=== PATIENT | female | born 1945 | race Caucasian/White ===

== ENCOUNTER → 2020-08-31 14:06 | Outpatient (CLI) | payer MEDICARE, SELFPAY ==
--- NOTE | ~2020-08-31 | XR_ITS ---
XR chest 2V DATE: 08/31/2020 14:34 INDICATION: History of breast cancer TECHNIQUE: 2 views COMPARISON: 07/08/2019 2 view chest FINDINGS: Normal heart size. There is a large hiatal hernia. No hilar or mediastinal enlargement. No pulmonary infiltrate or consolidation, pleural effusion or pu lmonary vascular congestion or pneumothorax. Diffuse idiopathic skeletal hyperostosis of the thoracic spine. There is moderate osteopenia. IMPRESSION: No active cardiac pulmonary disease Large hiatal hernia is again noted, also present on 07/08/2019 Reviewed, dictated and finalized at location A.
== END ==
PROVIDERS: PCP Internal Medicine
DX: C54.1 Malignant neoplasm of endometrium (principal); K44.9 Diaphragmatic hernia without obstruction or gangrene
CPT/HCPCS: 71046

== ENCOUNTER 2022-03-20 09:33 | Outpatient (RCR) | payer MEDICARE, SELFPAY ==
--- NOTE | 2022-03-20 10:51 | PTOPEVAL ---
Thank you for referring Jolene Cedillo to [facility].? The patient is scheduled to be seen for therapy? ___3_x/week for 12 visits. Please review, sign, date and return this plan of care BRET. I agree with and certify that the following plan of care is medically necessary. Referring Physician Date Admitting Provider: Attending Provider: Bhavin Chun Referring Provider: *PT Outpatient Evaluation Start: 03/20/22 10:07 Freq: Status: Active Protocol: Document 03/20/22 10:07 BIB (Rec: 03/20/22 10:50 BIB [id number]) Therapy Assessment Status Assessment Status Assessment Status Evaluation Evaluation Information Problem Diagnosis bilateral knee pain Onset 11/26/21 Subjective Information Pt. reports that she developed Query Text:As Reported By Patient/ bilateral knee pain around Family the beginning of the year. She reports that pain has advanced into the thighs and right side of the low back. She reports that she can only stand for 10 minutes at the most before having to sit down . she reports that her activity level has decreased recently and spends most of the day sitting. She used to enjoy bicycle riding, but avoids it due to fear of falling. She states that her goal for therapy is to be able to return to going to the store and shopping without pain or having to sit frequently. Pain Assessment Timing of Pain Assessment Timing of Pain Assessment Pre-Treatment Pain Scale Pain Scale Used Numeric (1 - 10) Self Report Pain Assessment Bilateral Knee(s) Reported Pain Level 1 Pain Description Aching Pain Score Pain Score 1: Self Report Interventions Used Interventions Used By Clinicians Activity or ADL's,Exercise Lower Extremity Range of Motion General Lower Extremity Range of Motion Gross Lower Extremity Range of Motion -right knee AROM 2-123 degrees Comments -left knee AROM 5-114 degrees Lower Extremity Muscle Strength Testing General Lower Extremity Strength Gross Lower Extremity Strength -bilateral hip flexion 4/5 -bilateral knee extension 4/5 -bilateral knee flexion 4/5 -bilateral ankle dorsiflexion
--- NOTE | 2022-04-17 13:52 | PTOPEVAL ---
Thank you for referring Jolene Cedillo to [facility].? The patient is scheduled to be seen for therapy? 3 addtitional visits. Please review, sign, date and return this plan of care BRET. I agree with and certify that the following plan of care is medically necessary. Referring Physician Date Admitting Provider: Attending Provider: Bhavin Chun Referring Provider: NAOMIE Outpatient Evaluation Start: 03/20/22 10:07 Freq: Status: Active Protocol: Document 04/17/22 12:52 BIB (Rec: 04/17/22 13:52 BIB [id number]) Therapy Assessment Status Assessment Status Assessment Status Progress Pain Assessment Timing of Pain Assessment Timing of Pain Assessment Pre-Treatment Pain Scale Pain Scale Used Numeric (1 - 10) Self Report Pain Assessment Lower Back Reported Pain Level 3 Pain Description Aching Bilateral Knee(s) Reported Pain Level 0 Lowest Pain Intensity 0 Greatest Pain Intensity 1 Pain Aggravating Factors Weight Bearing/Standing Pain Score Pain Score 0,3: Self Report Interventions Used Interventions Used By Clinicians Activity or ADL's Cervical and Lumbar ROM Lumbar ROM Lumbar Flexion Active [place],Ankle Query Text:Hands to: Lumbar Extension (0-40) 10 Query Text:Active in Degrees Lumbar Lateral Flexion Right (0-40) 10 Query Text:Active in Degrees Lumbar Lateral Flexion Left (0-40) 10 Query Text:Active in Degrees Lower Extremity Muscle Strength Testing General Lower Extremity Strength Gross Lower Extremity Strength -bilateral hip flexion 5/5 -bilateral hip abduction 4/5 -bilateral knee flexion 5/5 -bilateral knee extension 5/5 -bilateral ankle dorsiflexion 4/5 Balance Assessment Tinetti Balance Assessment Sitting Balance Steady, safe Ability to Arise Able, uses arms to help Attempts to Arise Arises on 1st attempt Immediate Standing Balance Steady w/o support Standing Balance Steady, wide stance Nudged Response Steady Standing with Eyes Closed Steady Step Pattern Turning 360 Degrees Continuous steps Stability Turning 360 Degrees Steady Sitting Down Safe, steady Initiation of Gait No hesitancy Right Foot Step Length Does not pass stance ft. Right Foot Step Height Completely clears floor Left Foot Step Length Does not pass stance foot Left Foot Step Height Completely clears floor Step Symmetry Step length appears equal Step Continuity Steps appear contin
--- NOTE | 2022-04-27 15:30 | PTOPEVAL ---
Thank you for referring Jolene Cedillo to [facility].? The patient is scheduled to be seen for therapy? ____x/week for ___ weeks. Please review, sign, date and return this plan of care BRET. I agree with and certify that the following plan of care is medically necessary. Referring Physician Date Admitting Provider: Attending Provider: Bhavin Chun Referring Provider: *PT Outpatient Evaluation Start: 03/20/22 10:07 Freq: Status: Active Protocol: Document 04/27/22 11:00 Oksana (Rec: 04/27/22 12:10 [id number]) Therapy Assessment Status Assessment Status Assessment Status Discharge Evaluation Information Problem Diagnosis bilateral knee pain Onset 11/26/21 Subjective Information Pt reports that she continues Query Text:As Reported By Patient/ to have pain in her lower back Family when standing for long periods of time. She also states that she has been feeling tired all of the time, beginning a few years ago when she got covid-19. She does state that her weight remains pretty close to the same, and that she checks her weight once every six months at her primary care physician. She states that she no longer has knee pain. She states that she remains limited in the length of time that she can walk, but this is primarily due to general fatigue than fatigue or pain in her knees. She does have steps at home but uses the handrail to negotiate the stairs to feel safe. Pain Assessment Timing of Pain Assessment Timing of Pain Assessment Pre-Treatment Pain Scale Pain Scale Used Numeric (1 - 10) Self Report Pain Assessment Lower Back Reported Pain Level 0 Bilateral Knee(s) Reported Pain Level 0 Pain Score Pain Score 0,0: Self Report Interventions Used Interventions Used By Clinicians Activity or ADL's,Education, Exercise Cervical and Lumbar ROM Lumbar ROM Lumbar Flexion Active Ankle Query Text:Hands to: Lumbar Extension (0-40) 10 Query Text:Active in Degrees Lumbar Lateral Flexion Right (0-40) 20 Query Text:Active in Degrees
== END 2022-04-27 10:22 | disposition home or self-care (01) ==
LOC: CHSPT 09:33
DX: M17.9 Osteoarthritis of knee, unspecified (principal)
CPT/HCPCS: 97014; 97110; 97112; 97161; 97530; G0283

== ENCOUNTER 2023-02-08 08:31 | Emergency (ER) | payer MEDICARE, SELFPAY ==
--- NOTE | ~2023-02-08 | XR_ITS ---
EXAMINATION: XR chest 2V DATE: 02/08/2023 08:59 INDICATION: Cough. TECHNIQUE: Frontal and lateral views of the chest were obtained. COMPARISON: Chest 2 views 08/31/20 FINDINGS: There is no pneumonia, pleural effusion, or pneumothorax. The heart size is normal. There i s a large hiatal hernia. Surgical clips overlie the chest. IMPRESSION: 1. Large hiatal hernia. Reviewed, dictated and finalized at location A. IMPRESSION: 1. Large hiatal hernia.
[2023-02-08 08:36] VITALS: BP 156/65; PULSE 106; RESP 20; TEMP 37.1; O2SAT 95
--- NOTE | 2023-02-08 08:40 | ED.URI ---
HPI - URI/Sore Throat General Chief Complaint: Upper Respiratory Infection Stated Complaint: cough Source: patient and RN notes reviewed History of Present Illness HPI Narrative: 77-year-old female presents to urgent care with complaints of cough x2 days. Patient states her cough is worse at nighttime after laying down but states when she sits up she feels like things drain better. Patient denies any fevers, chills, chest pain, shortness of breath, vomiting, diarrhea, congestion, ear pain, or headache. Patient has not been taking anything for symptoms. Some parts of this dictation were generated by voice recognition software and may contain typographical and/or grammatical inaccuracies. Related Data Home Medications Medication Instructions Recorded Confirmed albuterol sulfate 90 mcg/actuation 90 mcg inhalation PRN 02/08/23 02/08/23 aerosol inhaler letrozole 2.5 mg tablet mg 02/08/23 methotrexate sodium 2.5 mg tablet mg 02/08/23 Allergies Allergy/AdvReac Type Severity Reaction Status Date / Time codeine Allergy Other Verified 02/08/23 08:48 Review of Systems Review of Systems: CONSTITUTIONAL: Denies fever, chills, or sweats. EYES: Denies visual changes, redness, or discharge. ENT: Denies otalgia and sore throat CARDIOVASCULAR: Denies chest pain, palpitations, or edema. RESPIRATORY: Cough GASTROINTESTINAL: Denies abdominal pain, nausea, vomiting, or diarrhea. GENITOURINARY: Denies dysuria or hematuria. SKIN: Denies rash or itching. MUSCULOSKELETAL: Denies back pain, joint pain, or myalgia. NEUROLOGIC: Denies headache, numbness, or weakness. PMFSH Comments At the time of my signature, I reviewed and agree with the nursing past medical, surgical, social, and family history. There is no relevant family history pertinent to the patient complaint. Exam Narrative: GENERAL: This is a well-nourished, well-developed patient, in no apparent distress. HEAD: normocephalic, atraumatic. EYES: PERRL. Sclera clear/white. Vision is grossly intact. EARS: External ears normal, auditory canals clear and without drainage, TMs normal without perforation. Hearing grossly intact. NOSE: External nose normal with no obvious nasal discharge, nares without redness, no rhinorrhea. THROAT: Mucous membranes moist, posterior pharynx clear. NECK: Neck supple, non-tender without lymphadenopathy, masses or thyromegaly. CARDIOVASCULAR: Regular rate and rhythm without murmurs, gallops, or rubs. RESPIRATORY: Clear to auscultation. Breath sounds equal bilaterally. No wheezes, rales, or rhonchi. GASTROINTESTINAL: Abdomen soft, non-tender, nondistended. Bowel sounds are active. No hepato-splenomegaly, or palpable masses. No guarding. SKIN: warm, intact with no suspicious lesions or rash, good texture and turgor. NEURO: awake, alert, and oriented to person, place and time. There were no obvious focal neurologic abnormalities. Course Course Level of Care: Express Care Visit Vital Signs Vital signs: Vital Signs Temperature 98.7 F 02/08/23 08:36 Pulse Rate 106 H 02/08/23 08:36 Respiratory Rate 20 02/08/23 08:36 Blood Pressure 156/65 H 02/08/23 08:36 Pulse Oximetry 95 02/08/23 08:36 Oxygen Delivery Room Air 02/08/23 08:36 Temperature 98.7 F 02/08/23 08:36 Pulse Rate 106 H 02/08/23 08:36 Respiratory Rate 20 02/08/23 08:36 Blood Pressure 156/65 H 02/08/23 08:36 Pulse Oximetry 95 02/08/23 08:36 Oxygen Delivery Room Air 02/08/23 08:36 reviewed. MDM - URI/Sore Throat MDM Narrative Medical decision making narrative: Use your albuterol inhaler as directed every 4-6 hours as needed for coughing. Get plenty of of fluids and rest. May use a humidifier in the bedroom. Increase vitamin-C. Go to the emergency department with any new or worsening symptoms. Follow-up with your primary care physician within the next week. Differential Diagnosis Differential diagnosis: Likely upper respiratory infection, bronchi
== END 2023-02-08 09:08 | disposition home or self-care (01) ==
PROVIDERS: Emergency Provider Nurse Practitioner Family
DX: J40 Bronchitis, not specified as acute or chronic (principal); M06.9 Rheumatoid arthritis, unspecified; Z85.3 Personal history of malignant neoplasm of breast
CPT/HCPCS: 71046; 99213; G0463

== ENCOUNTER 2023-05-14 10:41 | Emergency (ER) | payer MEDICARE, SELFPAY ==
[2023-05-14 10:49] VITALS: BP 143/72; PULSE 81; RESP 20; TEMP 37.1; O2SAT 100
--- NOTE | 2023-05-14 10:58 | ED.URI ---
HPI - URI/Sore Throat General Chief Complaint: Upper Respiratory Infection Stated Complaint: poss bronchitis History of Present Illness HPI Narrative: Patient presents with a dry nonproductive cough. Patient states the cough is worse at night when she lays down and is relieved with [place] cough drops. No shortness of breath no chest pain. Patient is not taking anything [id number] for her symptoms. Related Data Home Medications Medication Instructions Recorded Confirmed albuterol sulfate 90 mcg/actuation 90 mcg inhalation PRN 02/08/23 02/08/23 aerosol inhaler letrozole 2.5 mg tablet mg 02/08/23 methotrexate sodium 2.5 mg tablet mg 02/08/23 Allergies Allergy/AdvReac Type Severity Reaction Status Date / Time codeine Allergy Other Verified 02/08/23 08:48 Review of Systems Review of Systems: CONSTITUTIONAL: Denies chills, or sweats. Reports fever and generalized body aches EYES: Denies visual changes, redness, or discharge. ENT: Denies otalgia. Reports nasal congestion runny nose and sore throat CARDIOVASCULAR: Denies chest pain, palpitations, or edema. RESPIRATORY: Denies dyspnea. Reports occasional cough GASTROINTESTINAL: Denies abdominal pain, nausea, vomiting, or diarrhea. GENITOURINARY: Denies dysuria or hematuria. SKIN: Denies rash or itching. MUSCULOSKELETAL: Denies back pain, joint pain, or myalgia. Reports generalized body aches NEUROLOGIC: Denies headache, numbness, or weakness. PSYCHIATRIC: Denies anxiety or depression. PMFSH Comments At time of signature, agree with nursing past medical, surgical, social and family history. There is no relevant family history pertinent to the presenting complaint Exam Narrative: The patient is a well-developed, well-nourished in no acute distress. SKIN: Skin is warm and dry without erythema, swelling or exudate. There is good turgor. No tenting. HEAD: Atraumatic. Normocephalic. No temporal or scalp tenderness. EYES: Moist and bright. Sclera and conjunctivae normal. No discharge. PERRLA. Extraocular motions intact. Gross visual acuity intact. EARS: Pinna is normal shape and contour. Clear external auditory canals. TM pearly mcadams with good cone of light, no erythema or suppuration. Bilateral cerumen noted no gross hearing deficit. NOSE: pink, moist mucosa with good air movement. Clear rhinorrhea without nasal flaring. Septum midline. Mouth: moist mucous membranes. THROAT; mild erythema noted to posterior oropharynx with moderate postnasal drainage. Without exudate or ulceration.. Uvula midline. Normal movement of soft palate. NECK: Supple and nontender with full range of motion without discomfort. No meningeal signs. LUNGS: Equal and bilateral breath sounds without wheezes, rales or rhonchi. CHEST: The chest wall is without retractions or use of accessory muscles. HEART: Has a regular rate and rhythm without murmur, gallops, click or rub. ABDOMEN: Soft, nontender with positive active bowel sounds. No rebound tenderness. EXTREMITIES: Without cyanosis, clubbing or edema. Equal 2+ distal pulses and 2 second capillary refill noted. NEUROLOGIC: alert, active, . The patient moves all extremities with normal muscle strength. Normal muscle tone is noted. Normal coordination is noted. NO focal neurological findings noted. Course Course Level of Care: Express Care Visit Vital Signs Vital signs: Vital Signs Temperature 37.1 C 05/14/23 10:49 Pulse Rate 81 05/14/23 10:49 Respiratory Rate 20 05/14/23 10:49 Blood Pressure 143/72 H 05/14/23 10:49 Pulse Oximetry 100 05/14/23 10:49 Oxygen Delivery Room Air 05/14/23 10:49 Temperature 37.1 C 05/14/23 10:49 Pulse Rate 81 05/14/23 10:49 Respiratory Rate 20 05/14/23 10:49 Blood Pressure 143/72 H 05/14/23 10:49 Pulse Oximetry 100 05/14/23 10:49 Oxygen Delivery Room Air 05/14/23 10:49 Please BRET schedule a followup visit with your personal physician for further evaluation and
== END 2023-05-14 11:03 | disposition home or self-care (01) ==
PROVIDERS: Emergency Provider Nurse Practitioner Family
DX: J06.9 Acute upper respiratory infection, unspecified (principal); I10 Essential (primary) hypertension
CPT/HCPCS: 99213; G0463

== ENCOUNTER 2023-11-03 13:09 | Emergency (ER) | payer MEDICARE, SELFPAY ==
[2023-11-03 13:17] VITALS: BP 158/68; PULSE 93; RESP 16; TEMP 37.6; O2SAT 96
--- NOTE | 2023-11-03 13:25 | ED.GENADULT ---
HPI - General Adult General Chief complaint: Upper Respiratory Infection Stated complaint: Cough/Runny Nose Source: patient, RN notes reviewed and old records reviewed Mode of arrival: ambulatory Limitations: no limitations History of Present Illness HPI narrative: 77-year-old female presents to [facility] with complaints of cough and congestion that started yesterday. Patient states using inhaler and cough drops without relief. Patient denies chest pain, shortness of breath, fevers, sore throat, weakness, vomiting MD complaint: coughing congestion Onset (ago): day(s) (1) Related Data Home Medications Medication Instructions Recorded Confirmed albuterol sulfate 90 mcg/actuation 90 mcg inhalation PRN PRN 02/08/23 11/03/23 aerosol inhaler Shortness Of Breath Or Wheezing letrozole 2.5 mg tablet 2.5 mg PO DAILY 02/08/23 11/03/23 Allergies Allergy/AdvReac Type Severity Reaction Status Date / Time codeine Allergy Unknown Unknown Verified 11/03/23 13:24 Review of Systems Constitutional: Constitutional: Reports no additional constitutional complaints, Denies body ache(s), Denies chills, Denies fever(s) and Denies headache(s) Eyes: Eyes: Reports no additional eye complaints ENT: Reports nasal congestion and Reports nasal discharge Cardiovascular: Cardiovascular: Reports no additional cardiovascular complaints Respiratory: Respiratory: Reports as per HPI, Reports chest congestion, Reports cough, Denies pain with cough and Denies dyspnea Neurologic: Reports system reviewed and no additional complaints, except as documented PMFSH Comments At the time of my signature, I reviewed and agree with the nursing past medical, surgical, social, and family history. There is no relevant family history pertinent to the patient complaint. Exam Const: General: cooperative, healthy appearing, no acute distress and well nourished Nutritional Appearance: well nourished Orientation/consciousness: patient oriented x3 Limitations: no limitations HENMT: Head: normal to inspection and normocephalic Ears: external ears normal, TM's normal bilaterally, mastoids normal and Abnormal EAC present Face/Nose/Sinus: normal facial exam Face and sinus: normal facial exam Mouth: Yes Normal oral and palatal mucosa present, Yes oropharynx normal and Yes moist mucous membranes Throat: posterior oropharynx normal, tonsils normal, uvula midline and no uvular edema Eyes: General: appearance normal, both eyes and all related structures Sclera: sclerae normal Pupils: Equal, round and reactive pupils present Resp: Effort & Inspection: normal respiratory effort, able to speak in complete sentences, no audible wheezes, no cough, no respiratory distress and no retractions Auscultation: clear to auscultation bilaterally, no crackles, no rales, no rhonchi and wheezes scattered wheezes Cardio: Rate: regular rate Rhythm: regular rhythm Skin: General skin exam: normal color and no rashes or lesions noted Neuro: General: patient oriented x3 Cranial nerves: Yes Equal, round and reactive pupils present Psych: Appearance: grossly normal Course Course Emergency Course: Some parts of this dictation were generated by voice recognition software and may contain typographical and/or grammatical inaccuracies. Level of Care: Express Care Visit Vital Signs Vital signs: Vital Signs Temperature 99.6 F 11/03/23 13:17 Pulse Rate 93 11/03/23 13:17 Respiratory Rate 16 11/03/23 13:17 Blood Pressure 158/68 H 11/03/23 13:17 Pulse Oximetry 96 11/03/23 13:17 Oxygen Delivery Room Air 11/03/23 13:17 Temperature 99.6 F 11/03/23 13:17 Pulse Rate 93 11/03/23 13:17 Respiratory Rate 16 11/03/23 13:17 Blood Pressure 158/68 H 11/03/23 13:17 Pulse Oximetry 96 11/03/23 13:17 Oxygen Delivery Room Air 11/03/23 13:17 Reviewed Medical Decision Making MDM Narrative Medical decision making narrative: patient with complaints cou
== END 2023-11-03 13:50 | disposition home or self-care (01) ==
PROVIDERS: Emergency Provider Registered Nurse
DX: J06.9 Acute upper respiratory infection, unspecified (principal); Z20.822 Contact with and (suspected) exposure to COVID-19; I10 Essential (primary) hypertension; M06.9 Rheumatoid arthritis, unspecified; Z85.3 Personal history of malignant neoplasm of breast; Z90.12 Acquired absence of left breast and nipple
CPT/HCPCS: 87426; 99213; C9803; G0463

== ENCOUNTER 2023-12-19 10:52 | Outpatient (RCR) | payer MEDICARE, SELFPAY ==
--- NOTE | 2023-12-19 11:54 | OPREHPOC ---
Outpatient Therapy Plan of Care This is a Multidisciplinary Plan of Care that may contain components documented by all disciplines (PT, OT, and ST.) PT Problem 1 PT Problem #1 Knowledge Deficit PT Goal 1 Goal 1. independent and compliant with HEP Target Visit 4 PT Problem 2 PT Problem #2 Pain PT Goal 1 Goal 1. decrease pain at worst to 3/10 or less 2. oswestry to display 20% or less functional deficits Target Visit 9 PT Problem 3 PT Problem #3 Impaired Strength PT Goal 1 Goal 1. improve bilateral hip strength to 4-/5 or better overall 2. improve core strength to hold bridge for 1 minute without loss of posture 3. improve core strength to perform PPT with supine bilateral march without loss of pelvic posture Target Visit 9 PT Problem 4 PT Problem #4 Impaired Functional Mobil PT Goal 1 Goal 1. patient to report no falls since beginning PT 2. patient to improve posture of the shoulder, upper back, and LE's to be more erect and less slumped 3. patient to ambulate 6 minute walk test without rest and with step through mechanics with good foot clearance 4. patient to stand and do dishes and cleaning at home without increased pain/rest required. Target Visit 9
--- NOTE | 2023-12-19 11:54 | PTOPEVAL1 ---
Assessment and note entered by JT File, PT Evaluation Information Assessment Status Evaluation Diagnosis low back pain, lumbago Onset 12/12/23 Subjective Information patient reports she has L sided lower back pain. she reports no injury, and no increased lifting activities. she reports she went to the MD 2 weeks ago and got mm relaxors. she reports these have helped a bit. she reports she has had no xrays. she reports she has increased pain with standing to wash dishes. she reports sitting does not cause pain. she reports stairs are troublesome, but she tries to avoid steps as much as she can for other reasons. she reports she has not NTB down the L LE. Reported Pain Level Pain Score 1: Self Report Assessment PT Clinical Summary mrs. pfeiffer is a 77 yo woman who presents to skilled PT services for evaluation and treatment of lower back pain. upon examination this date, she was found to be tender to palpation at the L PSIS, displays weak hips and core, decreased lumbar rom, and poor posture. 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 she would benefit from continued skilled PT services to improve her objective/functional deficits and progress towards a return to her prior level functional activity performance and quality of life. Plan of Care Interventions Electrical Stimulation,Gait Training,Hot Pack/Cold Pack,Manual Therapy,Mechanical Traction,Neuro Re- education,Patient/Caregiver Educati,Therapeutic Activities,Therapeutic Exercise PT Services Indicated Yes Treatment Frequency and 3x weekly for 9 visits Duration These treatments will address the objective and functional deficits as defined above. The patient will be advanced safely and appropriately in order for the patient to progress towards his/her prior level of function. Additional exercises will be introduced and as well as a comprehensive home exercise program upon discharge, if needed, ?to ensure carryover of functional gains achieved in the clinic. This treatment plan has been reviewed and agreement upon by the patient.
--- NOTE | 2024-01-17 15:38 | OPREHPOC ---
Outpatient Therapy Plan of Care This is a Multidisciplinary Plan of Care that may contain components documented by all disciplines (PT, OT, and ST.) PT Problem 1 PT Problem #1 Knowledge Deficit PT Goal 1 Goal 1. independent and compliant with HEP Target Visit 4 Progress Met PT Problem 2 PT Problem #2 Pain PT Goal 1 Goal 1. decrease pain at worst to 3/10 or less met 2. oswestry to display 20% or less functional deficits met Target Visit 13 Progress Met PT Problem 3 PT Problem #3 Impaired Strength PT Goal 1 Goal 1. improve bilateral hip strength to 4-/5 or better overall 2. improve core strength to hold bridge for 1 minute without loss of posture 3. improve core strength to perform PPT with supine bilateral march without loss of pelvic posture Target Visit 13 Comment continue PT Problem 4 PT Problem #4 Impaired Functional Mobil PT Goal 1 Goal 1. patient to report no falls since beginning PT 2. patient to improve posture of the shoulder, upper back, and LE's to be more erect and less slumped 3. patient to ambulate 6 minute walk test without rest and with step through mechanics with good foot clearance 4. patient to stand and do dishes and cleaning at home without increased pain/rest required. Target Visit 13 Comment continue
--- NOTE | 2024-01-17 15:38 | PTOPREEVAL ---
Assessment and note entered by Karli Chandler DPT Evaluation Information Assessment Status Re-evaluation Diagnosis low back pain, lumbago Onset 12/12/23 Subjective Information patient reports hip pain has almost totally resolved. she still reports she is still very cautious with stairs. she reports she needs to sit to rest while doing the dishes. she reports she is doing her HEP sometimes . Reported Pain Level Pain Score 0: Self Report Assessment PT Clinical Summary Mrs. Cedillo has attended 9 visits of skilled PT with great progress towards goals. She met goal for pain at this time. She has improved LE strength and continues to have difficulty with tolerating prolonged standing for dish washing. She reports that she also continues to be cautious with stair navigation. She would benefit from continued skilled PT to address remaining impairments and return to PLOF. Plan of Care Interventions Electrical Stimulation,Gait Training,Hot Pack/Cold Pack,Manual Therapy,Mechanical Traction,Neuro Re- education,Patient/Caregiver Educati,Therapeutic Activities,Therapeutic Exercise PT Services Indicated Yes Treatment Frequency and continue 1x weekly for 4 visits Duration These treatments will address the objective and functional deficits as defined above. The patient will be advanced safely and appropriately in order for the patient to progress towards his/her prior level of function. Additional exercises will be introduced and as well as a comprehensive home exercise program upon discharge, if needed, ?to ensure carryover of functional gains achieved in the clinic. This treatment plan has been reviewed and agreement upon by the patient.
--- NOTE | 2024-02-11 11:50 | OPREHPOC ---
Outpatient Therapy Plan of Care This is a Multidisciplinary Plan of Care that may contain components documented by all disciplines (PT, OT, and ST.) PT Problem 1 PT Problem #1 Knowledge Deficit PT Goal 1 Goal 1. independent and compliant with HEP Target Visit 4 Progress Met PT Problem 2 PT Problem #2 Pain PT Goal 1 Goal 1. decrease pain at worst to 3/10 or less met 2. oswestry to display 20% or less functional deficits met Target Visit 13 Progress Met PT Problem 3 PT Problem #3 Impaired Strength PT Goal 1 Goal 1. improve bilateral hip strength to 4-/5 or better overall 2. improve core strength to hold bridge for 1 minute without loss of posture 3. improve core strength to perform PPT with supine bilateral march without loss of pelvic posture Target Visit 13 Progress Met Comment . PT Problem 4 PT Problem #4 Impaired Functional Mobil PT Goal 1 Goal 1. patient to report no falls since beginning PT 2. patient to improve posture of the shoulder, upper back, and LE's to be more erect and less slumped 3. patient to ambulate 6 minute walk test without rest and with step through mechanics with good foot clearance 4. patient to stand and do dishes and cleaning at home without increased pain/rest required. Target Visit 13 Progress Partially Met Comment 1, 2, 3 met
--- NOTE | 2024-02-11 11:50 | PTOPDC ---
Assessment and note entered by Karli Hunter DPT Evaluation Information Assessment Status Discharge Diagnosis low back pain, lumbago Onset 12/12/23 Subjective Information she report she has had minimal back and hip pain. she reports she has been independent with HEP. she states she notices some improvement in endurance. Reported Pain Level Pain Score 0: Self Report Assessment PT Clinical Summary Mrs. Cedillo was seen for 13 visits of skilled PT with good progress towards goals. She met goals for pain, strength and functional outcome measure. She did not meet goal for functional endurance and continues to require rest when doing her dishes. She is independent with HEP and is appropriate for DC at this time. Plan of Care PT Services Indicated No
== END 2024-02-11 11:56 | disposition home or self-care (01) ==
LOC: CHSPT 10:52
PROVIDERS: Visit Provider Family Medicine
DX: M54.50 Low back pain, unspecified (principal)
CPT/HCPCS: 97014; 97110; 97112; 97161; 97530; G0283

== ENCOUNTER 2024-02-18 09:23 | Emergency (ER) | payer MEDICARE, SELFPAY ==
[2024-02-18 09:34] VITALS: BP 154/67; PULSE 84; RESP 16; TEMP 37.1; O2SAT 96
--- NOTE | 2024-02-18 09:45 | ED.URI ---
HPI - URI/Sore Throat General Chief Complaint: Upper Respiratory Infection Stated Complaint: Cough/Sneezing/Runny Nose Time Seen by Provider: 02/18/24 09:45 Source: patient and RN notes reviewed Mode of arrival: ambulatory Limitations: no limitations History of Present Illness HPI Narrative: 78-year-old female presented for complaint of sinus congestion and cough for 3 days. Denies Fever, body aches, shortness breath, wheezing, nausea, vomiting, or lethargy. She used unknown nasal spray for symptoms and cough drops. Denies known sick contacts but states she has attended some funerals. MD elicited complaint: cough Related Data Allergies Allergy/AdvReac Type Severity Reaction Status Date / Time codeine Allergy Unknown Unknown Verified 11/03/23 13:24 Review of Systems Review of Systems: CONSTITUTIONAL: Denies malaise, chills, sweats, fever EYES: Denies visual changes, redness, or discharge ENT: Reports rhinorrhea, congestion, deniessinus pain, otalgia, sore throat CARDIOVASCULAR: Denies chest pain, palpitations, edema RESPIRATORY: Reports cough, post nasal drainage. Denies dyspnea GASTROINTESTINAL: Denies abdominal pain, nausea, vomiting, diarrhea SKIN: Denies rash or itching MUSCULOSKELETAL: denies myalgia NEUROLOGIC: Denies headache Exam Narrative: GENERAL: well-appearing, nontoxic EYES: PERRLA, conjunctivae clear ENT: Mucous membranes moist. Nasal congestion TM pearly greco with dull light reflex bilaterally; no tragal tenderness. Oropharynx erythematous without lesions or exudate, no drooling, no hoarseness, no trismus, uvula midline. No tripod positioning, muffled voice, soft palate or pharyngeal wall bulging NECK: Supple. No lymphadenopathy CHEST: Clear to auscultation, breath sounds equal. occasional moist cough. No respiratory distress, speaks in full sentences. HEART: Regular rate and rhythm. No murmur heard. SKIN: Warm, dry, no rash. NEURO: Alert and oriented x3. PSYCH: Normal mood and affect Course Course Emergency Course: Patient is aware of diagnosis, understands and agrees to treatment plan. Anticipatory guidance given. Patient agrees to follow-up as directed and is aware of reasons to seek care at the emergency department. Portions of this record may have been created with voice recognition software Level of Care: Express Care Visit Vital Signs Vital signs: Vital Signs Temperature 98.8 F 03/25/24 09:34 Pulse Rate 84 02/18/24 09:34 Respiratory Rate 16 02/18/24 09:34 Blood Pressure 154/67 H 02/18/24 09:34 Pulse Oximetry 96 02/18/24 09:34 Oxygen Delivery Room Air 02/18/24 09:34 Temperature 98.8 F 02/18/24 09:34 Pulse Rate 84 02/18/24 09:34 Respiratory Rate 16 02/18/24 09:34 Blood Pressure 154/67 H 02/18/24 09:34 Pulse Oximetry 96 02/18/24 09:34 Oxygen Delivery Room Air 02/18/24 09:34 reviewed MDM - URI/Sore Throat MDM Narrative Medical decision making narrative: Discussed physical exam findings c/w viral URI. Declined covid testing. Advised supportive measures and signs/symptoms to go to the ER. Pt is appropriate for outpt treatment and f/u. Differential Diagnosis Differential diagnosis: Likely upper respiratory infection, otitis media, sinusitis, viral infection, bronchitis and influenza Discharge Plan Discharge Clinical Impression: Upper respiratory infection Patient Disposition: Home, Self-Care Condition: Stable Instructions: Antibiotic Form, Upper Respiratory Infection (ED) Additional Instructions: If your symptoms are due to a viral illness, it is not treated with antibiotics. Viral symptoms can be present for up to 10-14 days. Recommend Flonase spray and Zyrtec for sinus congestion Cough syrup may cause drowsiness; avoid driving or take it at night time. Tylenol every 8 hours as needed for pain/fever Soft foods, cool liquids, warm tea. Gargle with warm saltwater twice a day. Chloraseptic spray and throa
== END 2024-02-18 09:59 | disposition home or self-care (01) ==
PROVIDERS: Emergency Provider Nurse Practitioner Family; PCP Family Medicine
DX: J06.9 Acute upper respiratory infection, unspecified (principal)
CPT/HCPCS: 99213; G0463

== ENCOUNTER 2024-10-30 11:54 | Emergency (ER) | payer MEDICARE, SELFPAY ==
--- NOTE | ~2024-10-30 | XR_ITS ---
XR chest 2V 10/30/2024 12:51 Indication: Cough Procedure: 2 view chest Comparison: 05/11/2023 Findings: Large hiatal hernia. No focal air space disease, pulmonary edema, pleural effusion or suspe cted pneumothorax. Heart size normal. No acute osseous abnormality. Impression: 1: Large hiatal hernia. Reviewed, dictated and finalized at location B. [employer] LIAISON Impression: 1: Large hiatal hernia.
[2024-10-30 12:14] VITALS: BP 155/59; PULSE 80; RESP 20; TEMP 37.2; O2SAT 98
--- NOTE | 2024-10-30 12:29 | ED.URI ---
HPI - URI/Sore Throat General Chief Complaint: Upper Respiratory Infection Stated Complaint: cold/bronchitis Time Seen by Provider: 10/30/24 12:29 Source: patient, RN notes reviewed and old records reviewed Mode of arrival: ambulatory Limitations: no limitations History of Present Illness HPI Narrative: 78 year old female presents to [facility] care with complaints of cough, runny nose for the past 3.5 days and has been taking some Tessalon Perles and Mucinex for her cough without resolution, reports that she is concerned for Bronchitis. Patient reports no known fevers, chills or sweats,denies any facial pain or any headaches, denies any dyspnea. MD elicited complaint: cough, rhinorrhea and nasal congestion Pertinent past history: immunosuppression and other (bronchitis) Onset (ago): day(s) (3.5 days) Severity: moderate Able to tolerate fluids by mouth: Yes Treatments prior to arrival: other (Mucinex and Tessalon Perles) Related Data Home Medications Medication Instructions Recorded Confirmed methotrexate sodium 2.5 mg tablet 15 mg PO WEEKLY 10/30/24 10/30/24 Allergies Allergy/AdvReac Type Severity Reaction Status Date / Time codeine Allergy Unknown Unknown Verified 10/30/24 11:59 Review of Systems Review of Systems: CONSTITUTIONAL: Reports malaise, no chills, sweats, or fever. EYES: Denies visual changes, redness, or discharge. ENT: Reports rhinorrhea, congestion,no sinus pain,no otalgia and no sore throat. CARDIOVASCULAR: Denies chest pain, palpitations, or edema. RESPIRATORY: Reports productive cough.? Denies dyspnea. GASTROINTESTINAL: Denies abdominal pain, nausea, vomiting, diarrhea SKIN: Denies rash or itching. MUSCULOSKELETAL: Denies myalgia. NEUROLOGIC: Denies headache. All systems reviewed & are unremarkable except as noted in HPI and below PMFSH Past Medical History Medical History Breast cancer, left Bronchitis Hypertension Rheumatoid arthritis Surgical History Surgical History H/O: hysterectomy History of knee replacement, total bilateral Social History Social History Smoking status: Never smoker Alcohol intake: current Alcohol use details: rare social Substance use: never Living arrangements: with family Gender identity (if verbalized by the patient): Female Comments At time of signature, agree with nursing past medical, surgical, social and family history. There is no relevant family history pertinent to the presenting complaint Exam Narrative: GENERAL: Well-appearing, well-nourished, and in no acute distress. HEAD: Normocephalic EYES: PERRLA, conjunctivae clear ENT: Nares clear, turbinates edematous and erythematous, clear discharge. Mucous membranes moist. TM pearly greco with dull light reflex bilaterally; no tragal tenderness. Oropharynx erythematous without lesions. Tonsils not enlarged and without exudate, no drooling, no hoarseness, no trismus, uvula midline.post nasal drainage NECK: Supple. No lymphadenopathy CHEST: crackles left base on auscultation, breath sounds equal. No wheezing, rhonchi,left base rales, no stridor. No respiratory distress, speaks in full sentences.cough SAO2 98% on room air HEART: Regular rate and rhythm. No murmur heard. SKIN: Warm, dry, no rash. NEURO: Alert and oriented x3. PSYCH: Normal mood and affect Course Course Emergency Course: Patient is aware of diagnosis, understands and agrees to treatment plan.? Anticipatory guidance given.? Patient agrees to follow-up as directed and is aware of reasons to seek care at the emergency department. Portions of this record may have been created with voice recognition software Level of Care: Express Care Visit Vital Signs Vital signs: Vital Signs Temperature 37.2 C 10/30/24 12:14 Pulse Rate 80 10/30/24 12:14 Respiratory Rate 20 10/30/24 12:14 Blood Pressure 155/59 H 10/30/24 12:14 Pulse Oximetry 98 10/30/24 12:14 Oxygen Delivery Room Air 10/30/24 12:14 Temperature 37.2 C 10/30/24 12:14 Pulse Rate 80 10/30/24 12:14 Respiratory Rate 20 10/30/24 12:14 Blood Pressure 155/59 H 10/30/24 12:14 Pulse Oximetry 98 10/30/24 12:14 Oxygen Delivery Room Air 10/30/24 12:14 Reviewed MDM - URI/Sore Throat MDM Narrative Medical decision making narrative: Differential diagnosis considered: Koch virus, strep pharyngitis, allergic rhinitis, upper respiratory tract infection, sinusitis, rhinosinusitis, nasopharyngitis. viral pharyngitis, otitis media, otitis externa, pneumonia, bronchitis, viral cough syndrome, viral syndrome, and influenza.? Exam findings show no acute concerns or changes; patient is non-toxic appearing and is in no distress.? Patient is appropriate for outpatient treatment and follow-up. Differential Diagnosis Differential diagnosis: Likely upper respiratory infection, sinusitis, viral infection, bronchitis and other (cough) Medical Records Attestation: I reviewed the patient's medical records. Lab Data Attestation: I reviewed the patient's lab results. Imaging Data Attestation: I personally reviewed and interpreted this imaging study as follows: My impression: large hiatal hernia,no focal airspace disease Radiologist's impression: [place] [address] XRay Report Signed Patient: Jolene Cedillo : 1945 MR#: [id number] Age: 78 Acct:[id number] Loc: [facility] ADM Date: 10/30/24Attending Dr: Ordering Physician: Melisa Sen APRN Date of Service: 10/30/24 Procedure(s): XR chest 2V Accession Number(s): [id number] cc: Melisa Sen APRN~ XR chest 2V 10/30/2024 12:51 Indication: Cough Procedure: 2 view chest Comparison: 05/11/2023 Findings: Large hiatal hernia. No focal air space disease, pulmonary edema, pleural effusion or suspected pneumothorax. Heart size normal. No acute osseous abnormality. Impression: 1: Large hiatal hernia. Reviewed, dictated and finalized at location B. ME WRITER Dictated By: Bayron Cheung MD 10/30/24 1253 Signed By: <Electronically signed by Bayron Cheung MD in OV> Critical Care Time Critical Care Time Critical Care Time: No Discharge Plan Discharge Clinical Impression: Upper respiratory infection with cough and congestion Patient Disposition: Home, Self-Care Condition: Stable Instructions: Antibiotic Form, Upper Respiratory Infection (ED) Additional Instructions: Increase fluids especially juices and water Erfy-omd-[id number] cough and cold medicine of your choice for your symptoms Cough tablets as directed for cough--do not bite, chew or suck on--swallow whole Zyrtec Claritin or Shayy daily Steroids as directed--take with food heat to the face 20-30 minutes 4-6 times a day for pain Salt water gargles, throat lozenges or throat sprays as desired Tylenol or ibuprofen for any fever pain If your symptoms persist, change or worsen significantly before you can contact your personal physician then please, without delay, go to the emergency department for further evaluation. Follow-up with PCP in 7-10 days or sooner if needed Follow up with PCP soon in regards to your blood pressure which is elevated above threshold for referral. Blood pressure above 120/80 may indicate pre-hypertension.155/95 Prescriptions: New benzonatate 200 mg capsule 200 mg PO TID Qty: 14 0RF methylprednisolone [Medrol (Otilio)] 4 mg tablets,dose pack See Rx Instructions .ROUTE .COMPLEX Qty: 21 0RF Rx Instructions: orally per package directions No Action methotrexate sodium 2.5 mg tablet 15 mg PO WEEKLY Follow-up/Referrals: PHYSICIAN NOT ON STAFF,NONSTAFF [Primary Care Provider] - Time of Disposition: 13:15 Quality [place] Coma Scale Eyes: Open Verbal: Oriented and Alert Motor: Follows Commands Lani Coma Total Score: 15
== END 2024-10-30 13:18 | disposition home or self-care (01) ==
PROVIDERS: Emergency Provider Registered Nurse
DX: J06.9 Acute upper respiratory infection, unspecified (principal); I10 Essential (primary) hypertension; M06.9 Rheumatoid arthritis, unspecified; Z85.3 Personal history of malignant neoplasm of breast; Z96.653 Presence of artificial knee joint, bilateral
CPT/HCPCS: 71046; 99213; G0463

== ENCOUNTER 2024-11-10 08:31 | Emergency (ER) | payer MEDICARE, SELFPAY ==
[2024-11-10 08:37] VITALS: BP 139/85; PULSE 79; RESP 20; TEMP 36.8; O2SAT 98
--- NOTE | 2024-11-10 09:08 | ED_ITS ---
HPI - URI/Sore Throat General Chief Complaint: Upper Respiratory Infection Stated Complaint: Congestion Source: patient Mode of arrival: ambulatory Limitations: no limitations History of Present Illness HPI Narrative: 78-year-old history of for started arthritis presented for complaint of cough for 2 weeks. Patient was seen here 10 days ago , had a negative chest x-ray, given steroid and Tessalon Perles. She states she has continued to cough, endorses occasional wheeze, Also has to sleep sitting up due to the cough. She denies associated chest pain, shortness of breath, nausea vomiting, diarrhea , fever or lethargy. Related Data Home Medications ?Medication ?Instructions ?Recorded ?Confirmed ?Last Taken ?Type methotrexate sodium 2.5 mg tablet 15 mg PO WEEKLY 10/30/24 11/10/24 Unknown History Allergies Allergy/AdvReac Type Severity Reaction Status Date / Time codeine Allergy Unknown Unknown Verified 10/30/24 11:59 Review of Systems Review of Systems: per HPI All systems reviewed & are unremarkable except as noted in HPI and below PMFSH Past Medical History Medical History Rheumatoid arthritis Hypertension Breast cancer, left Bronchitis Surgical History Surgical History History of knee replacement, total bilateral H/O: hysterectomy Social History Social History Smoking status: Never smoker Alcohol intake: current Alcohol use details: rare social Substance use: never Living arrangements: with family Gender identity (if verbalized by the patient): Female Comments At time of signature, I have reviewed and agree with nursing past medical, surgical, social and family history unless otherwise noted. Please see nursing chart for further information. There is no relevant family history pertinent to the presenting complaint Exam Narrative: GENERAL: Well-appearing EYES: EOMI. No redness or drainage. Conjunctivae normal. ENT: Mucous membranes pink and moist. No rhinorrhea. TMs normal bilaterally. Throat normal. Uvula midline. CHEST: No respiratory distress. expiratory wheeze to right upper lung, bilateral crackles to bases HEART: Regular rate and rhythm. No murmur appreciated. ABDOMEN: Soft, nontender, nondistended, normal active bowel sounds. EXTREMITIES: Normal range of motion. 2+ pitting edema to lower legs SKIN: Warm, dry, no rash. Capillary refill normal. Normal skin turgor. NEURO: Alert and oriented x3. Gait steady. PSYCH: Normal affect. Course Course Emergency Course: Patient is aware of diagnosis, understands and agrees to treatment plan. Anticipatory guidance given. Patient agrees to follow-up as directed and is aware of reasons to seek care at the emergency department. Portions of this record may have been created with voice recognition software Level of Care: Express Care Visit Vital Signs Vital signs: Vital Signs Temperature 98.3 F 11/10/24 08:37 Pulse Rate 79 11/10/24 08:37 Respiratory Rate 20 11/10/24 08:37 Blood Pressure 139/85 11/10/24 08:37 Pulse Oximetry 98 11/10/24 08:37 Oxygen Delivery Room Air 11/10/24 08:37 Temperature 98.3 F 11/10/24 08:37 Pulse Rate 79 11/10/24 08:37 Respiratory Rate 20 11/10/24 08:37 Blood Pressure 139/85 11/10/24 08:37 Pulse Oximetry 98 11/10/24 08:37 Oxygen Delivery Room Air 11/10/24 08:37 MDM - URI/Sore Throat MDM Narrative Medical decision making narrative: Discussed physical exam findings, BLE edema, crackles to bases. Pt declined repeat CXR today. Advised close f/u with pcp. Advised supportive measures and signs/symptoms to go to the ER. Pt is appropriate for outpt treatment and f/u. Differential Diagnosis Differential diagnosis: Likely upper respiratory infection, sinusitis and br onchitis Discharge Plan Discharge Clinical Impression: Acute lower respiratory infection Patient Disposition: Home, Self-Care Condition: Stable Instructions: Antibiotic Form, Pneumonia (ED), Edema (ED) Additional Instructions: Take medication as directed Recommend Flonase spray and Zyrtec (or Claritin/Shayy) over the counter Cough syrup may cause drowsiness; avoid driving or take it at night time. Tylenol 1000mg every 8 hours as needed for pain Symptomatic treatment includes: rest, fluids, and increase humidity of the air at home. For leg swelling; recommend keeping your legs elevated while sitting Limit salt intake Contact your pcp today for further evaluation Follow up with your primary care provider, call today to schedule an appointment. Go to the ER for worsening symptoms or concerns Patient Language: Slovak Prescriptions: New azithromycin [Zithromax Z-Otilio] 250 mg tablet See Rx Instructions .ROUTE .COMPLEX Qty: 6 0RF Rx Instructions: For 250 mg dose pack: take 500 mg today (day 1), then 250 mg for 4 days (days 2-5) No Action methotrexate sodium 2.5 mg tablet 15 mg PO WEEKLY Follow-up/Referrals: Olamide,MD Mariangel [Primary Care Provider] - Time of Disposition: 09:16
--- OUTSIDE RECORDS SUMMARY | 2024-11-16 12:48 | XMS_ITS | Encounter Summary ---
Author Organization [facility] Address [address] [place] [address] Care Team Providers Care Research Chemist Name Role Phone Francisco Long MD Primary Care Provider Unavail able Alex Nichols MD Unavailable [phone] Usha Bryan RN Unavailable [phone] Reason for Visit * Reason Comments Follow-up RV/right knee sx [id number] Encounter Details Date Type Department Care Team (Late st Contact Info) Description 07/04/2016 10:30 AM CDT Office Visit [facility] [id number] [place] [phone] [place] [id number] [address] Presence of right artificial knee joint (Primary Dx) Social History Tobacco Use Types Packs/Day Years Used Date Smoking Tobacco: Never Smokeless Tobacco: Never Alcohol Use Standard Drinks/Week Comments No 0 (1 standard drink = 0.6 oz pur e alcohol) Sex and Gender Information Value Date Recorded Sex Assigned at Not on file Gender Identity Not on file Sexual Orientation Not on file documented as of this encounter Functional Status Functional Status Response Date of Assess ment Is person deaf or have serious hearing difficult y? No 01/06/2016 Is person blind or have serious difficulty seein g? No 01/06/2016 Does person have serious dif ficulty walking/climbing stairs? No 01/06/2016 Does person have difficulty dressing/bathing? No 01/06/2016 Does person have difficulty doing errands alone? No 01/06/2016 Cognitive Status Response Date of Assessm ent Does person have difficulty concentrating/remembering/making decisions? No 01/06/2016 documented as of this encounter Progress Notes * Alex Nichols MD - 07/04/2016 10:50 AM CDT Six months our - resolving DVT Has been on blood thinners Asymptomatic at this time Will finish up current supply of blood thinners and then d/c F/u six months * Coleen Reyes MA - 07/04/2016 10:16 AM CDT RV/right knee sx [id number] documented in this encounter H&P Notes * Alex Nichols MD - 07/10/2016 9:18 AM CDT DATE OF SERVICE: 07/04/2016 Mrs. Cedillo is 6 months out from right total knee arthroplasty, overall doing quite well. She had a venous Doppler perioperatively that demonstrated clots in her distal venous structure of her right and leg. At this point, she has been on oral anticoagulants. On examination, she has no significant swelling. She has negative Homans sign. She has no tenderness on examination. At this point, she may discontinue her Xarelto and continue activities as tolerated. We are going to see her back in the office in 6 months. Alex Nichols M.D. Electronically Signed 07/10/2016 11:46:48 WCS/MedQ #: [id number] documented in this encounter Plan of Treatment Not on file documented as of this encounter Visit Diagnoses Diagnosis Presence of right artificial knee joint- Primary Knee joint replacement by other means documented in this encounter Care Teams Research Chemist Relationship Specialty Start Date End Date Francisco Long MD PCP - General Internal Medicine 07/03/14 [place] [address] [place], [place] [id number] Orthopedic Surgery 04/22/15 Usha Bryan, TAO [address] [place] [id number] Card Grader 01/07/16 documented as of this encounter
--- OUTSIDE RECORDS SUMMARY | 2024-11-16 12:48 | XMS_ITS | Encounter Summary ---
Author Organization [facility] Health Address [address] [facility] [place] [address] Care Team Providers Care Pot Puncher Name Role Phone Francisco Long MD Primary Care Provider Unavail able Alex Nichols MD Unavailable [phone] Usha Bryan RN Unavailable [phone] Reason for Visit * Reason Comments Refill Request Encounter Details Date Type Department Care Team (Late st Contact Info) Description 05/22/2016 Refill [facility] [address] [facility] [address] [place] [address] [place] [id number] [address] Refill Request Social History Tobacco Use Types Packs/Day Years [...] No 01/06/2016 documented as of this encounter Miscellaneous Notes * Telephone Encounter - Lupe Duran MA - 05/25/2016 9:35 AM CDT Refill has now been signed and sent to [facility]. * Telephone Encounter - Dawna Diehl - 05/25/2016 8:12 AM CDT Patient called again and only have ENOUGH PILLS FOR TODAY and would like the script called to [facility] at [phone]. * Telephone Encounter - Rayna Galan - 05/25/2016 8:10 AM CDT Pharmacy calling to check on prescription refill, patient asking when this will be refilled she is about run out. * Telephone Encounter - Lpue Duran MA - 05/23/2016 8:25 AM CDT Eliquis refill sent to Dr. Nichols for authorization. It will be sent electronically to [facility] once signed. documented in this encounter Plan of Treatment Not on file documented as of this encounter Visit Diagnoses Not on filedocumented in this encounter Care Teams Pot Puncher Relationship Specialty Start Date End Date Francisco Long MD PCP - General Internal Medicine 07/03/14 [place] [id number] [place] [address] Orthopedic Surgery 04/22/15 Usha Bryan, TAO [address] [place] [address] Customer Account Administrator 01/07/16 documented as of this encounter
--- OUTSIDE RECORDS SUMMARY | 2024-11-16 12:48 | XMS_ITS | Encounter Summary ---
Author Organization [facility] Address [address] [facility] [place] [address] Care Team Providers Care Third Loader Name Role Phone Francisco Long MD Primary Care Provider Unavail able Alex Nichols MD Unavailable [phone] Usha Bryan RN Unavailable [phone] Reason for Visit * Radiology Services (Routine) - Closed Specialty Diagnoses / Procedures Referred By Contac t Referred To Contact Vascular Lab Diagnoses Right leg pain Presence of right artificial knee joint Procedures [place] [address] [facility] [address] [place] [address] Referral ID Status Reason Start Date Expiration Date Visits Re quested Visits Authorized [id number] Closed 02/29/2016 08/27/2016 1 1 Encounter Details Date Type Department Care Team (Latest Contact Info) Description 02/29/2016 1:32 PM CDT - 02/29/2016 11:59 PM T Hospital Encounter [facility] Health Vascular Services [address] [facility], [address] [place] [address] [place] [address] [facility] [address] [place] [address] Discharge Disposition: Home or Self Care Social History Tobacco Use Types Packs/Day Years [...] No 01/06/2016 documented as of this encounter Medications at Time of Discharge Medication Sig Dispensed Refills Start Date End Date ferrous sulfate 325 (65 FE) MG tablet Take 325 mg by mouth daily with breakfast losartan-hydrochlorot hiazide (HYZAAR) 100-12.5 MG tablet Take 1 Tab by mouth once daily. methotrexate 2.5 MG tabletIndications:Ost eoarthrosis, unspecified whether generalized or localized, involving lower leg Take 6 Tabs by mouth every 7 days Resume when ok with your hopper filler 3 01/07/2016 Other once daily [employer] Supplement Instructed to stop 10 days before surgery apixaban (ELIQUIS) 5 MG tablet Take 1 Tab by mouth 2 times daily Take 10mg BID x 7 days. After 7 days start 5mg BID 60 Tab 3 02/01/2016 05/22/2016 documented as of this encounter Plan of Treatment Not on file documented as of this encounter Procedures Procedure Name Priority Date/Time Associated Diagnosis Comments VAS RIGHT VENOUS DUPLEX LE Routine 02/29/2016 1:39 PM CDT Right leg pain Presence of right artificial knee joint documented in this encounter Results * VAS RIGHT VENOUS DUPLEX LE (02/29/2016 1:39 PM CDT) Anatomical Region Laterality Modality Ultrasound 02/29/2016 1:24 PM CDT Narrative Procedure Note Saqib Brito MD - 03/01/2016 [facility] Vascular [place] [address], [address] [place] [address] Lower Extremity Venous Ultrasound Report Pat.Name: HSAUNA GORDON.ID: [id number] St.Date: 02/29/2016 Exam Time: 1:24:00 PM Study Type:LE Venous Age: 1 1945,70Y Sex: FEMALE Sonogrphr: Peter Suh Titus Pat. 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 FINDINGS: Procedure: Venous duplex imaging of the right lower extremity was performed using color flow and spectral Doppler analysis. The contralateral common femoral vein was also examined. Study Quality: This study is of adequate technical quality. Rt Leg: All vessels seen appear patent and compressible. There was spontaneous and phasic flow seen in all the major veins of the right lower extremity. Appropriate augmentation with distal compression. There is chronic, non-occlusive thrombus in the one of two posterior tibial veins. There is chronic, non-occlusive thrombus in the popliteal vein. Comments: Findings of today's exam show improvement compared to the previous exam dated 02-01-2016. Signed 03/01/2016 03:58 PM Saqib Brito MD Alex Nichols MD VASCULAR LAB ORDERAB LES documented in this encounter Visit Diagnoses Diagnosis Right leg pain Pain in limb Presence of right artificial knee joint Knee joint replacement by other means documented in this encounter Care Teams Third Loader Relationship Specialty Start Date End Date Francisco Long MD PCP - General Internal Medicine 07/03/14 [place] [address] [place] [address] Orthopedic Surgery 04/22/15 Usha Bryan, TAO [address] [place] [address] Service Developer 01/07/16 documented as of this encounter
--- OUTSIDE RECORDS SUMMARY | 2024-11-16 12:48 | XMS_ITS | Encounter Summary ---
Author Organization [facility] Address [address] [facility] [place] [address] Care Team Providers Care Negative Turner Apprentice Name Role Phone Francisco Long MD Primary Care Provider Unavail able Alex Nichols MD Unavailable [phone] Usha Bryan RN Unavailable [phone] Reason for Visit * Reason Comments Follow-up rtka 01/06/16, ltka Encounter Details Date Type Department Care Team (Late st Contact Info) Description 01/02/2017 10:20 AM CATHETER BUILDER Office Visit [facility] Orthopedics [address] [place] [id number] [place] [address] [address] Presence of right artificial knee joint (Primary Dx); Presence of left artificial knee joint Social History Tobacco Use Types Packs/Day Years [...] as of this encounter Progress Notes * Fadia Ybarra - 01/09/2017 1:07 PM CST Updated dx codes ETER BUILDER * Cornelio Alba PA-C - 01/02/2017 10:52 AM CST 1 yr out on right 1 1/2 left on left Legs hurt at nite No swelling or f/c no numbness ETER BUILDER * Liane Weber - 01/02/2017 10:23 AM CST rtka 01/06/16, ltka 06/09/15 ETER BUILDER documented in this encounter H&P Notes * Cornelio Alba PA-C - 01/08/2017 11:30 PM CST DATE OF SERVICE: 01/02/2017 Jolene returns to our office today for both of her knees. Both knees are a year out on the right, a year and half on the left. Both knees are doing extremely well. She has been pleased with the way everything is progressing. She still has some difficulty walking and standing for a period of time as well as going up and down steps. She still complains of some moderate weakness. CLINICAL EXAMINATION: She has good range of motion of the hips, equally and bilaterally without any groin pain. Both knees show 2 well-healed incisions with no evidence of any infection. Motion is 0-120 degrees with good strength. She still has some weakness in extension. She has no extension lag sign. RADIOGRAPHS: Radiographs show 2 well-implanted and cemented anterior stabilized knees with no evidence of any loosening or subsidence. It is in good alignment with nice cement mantle on these components. IMPRESSION: Progressing well. PLAN: At this point in time, she is going to work on some strengthening exercises. I went over this with her in detail. We will see her back in the office in about 3 years. JO ANN Graandos M.D. Electronically Signed 01/09/2017 11:01:47 Electronically Signed 01/09/2017 11:04:16 PJD/MedQ #: [id number] ETER BUILDER documented in this encounter Plan of Treatment Pending Results Name Type Priority Associated Diagnoses Date /Time XR KNEE BILAT 3 VIEWS Imaging Routine History of bilateral knee replacement 01/02/2017 10:23 AM CATHETER BUILDER Scheduled Orders Name Type Priority Associated Diagnoses Orde r Schedule XR KNEE BILAT 3 VIEWS Imaging Routine Presence of right artificial knee joint Presence of left artificial knee joint 1 Occurrences starting 01/02/2017 until 01/02/2018 documented as of this encounter Visit Diagnoses Diagnosis Presence of right artificial knee joint- Primary Knee joint replacement by other means Presence of left artificial knee joint Knee joint replacement by other means documented in this encounter Care Teams Negative Turner Apprentice Relationship Specialty Start Date End Date Francisco Long MD PCP - General Internal Medicine 07/03/14 [place] [address] [place] [address] Orthopedic Surgery 04/22/15 [place] [address] [place] [address] Tire Mold Tester 01/07/16 documented as of this encounter
--- OUTSIDE RECORDS SUMMARY | 2024-11-16 12:48 | XMS_ITS | Patient Health Summary ---
Author Organization [facility] Address [address] [place] [address] Care Team Providers Care Pure Pak Machine Operator Name Role Phone Francisco Long MD Primary Care Provider Unavail able Alex Nichols MD Unavailable [phone] Usha Bryan RN Unavailable [phone] Micki Cadena MD Unavailable [phone] Note from [facility],non-owned Affiliates and Associated Physician Practices is amultiple site organization consisting of ambulatory clinics and hospital sitesin [place], [place], [place] and [place]. This disclosure is being madepursuant to the Care Everywhere program and may not contain all information available regarding this patient. Last updated 18.[facility] Allergies No known active allergies Medications * Be aware that medications may not be up to date on this document. Alwaysverify current medications with the patient. * losartan-hydrochlorothiazide (HYZAAR) 100-12.5 MG tablet Take 1 Tab by mouth once daily. * ferrous sulfate 325 (65 FE) MG tablet Take 325 mg by mouth daily with breakfast * Other once daily [employer] [place] Supplement Instructed to stop 10 days before surgery * methotrexate 2.5 MG tablet(Started 01/07/2016) Take 6 Tabs by mouth every 7 days Resume when ok with your android programmer 3 refills left * ELIQUIS 5 MG tablet(Started 05/25/2016) TAKE 1 TABLET BY MOUTH TWICE DAILY 2 refills left Active Problems Problem Noted Date Diagnosed Date Presence of right artificial knee joint 02/29/20 16 Osteoarthrosis involving lower leg 08/03/2014 Social History Tobacco Use Types Packs/Day Years Used Date Smoking Tobacco: Never Smokeless Tobacco: Never Alcohol Use Standard Drinks/Week Comments No 0 (1 standard drink = 0.6 oz pur e alcohol) Sex and Gender Information Value Date Recorded Sex Assigned at Not on file Gender Identity Not on file Sexual Orientation Not on file Last Filed Vital Signs Vital Sign Reading Time Taken Comments Blood Pressure 117/64 01/08/2016 7:50 AM [employer] Pulse 95 01/08/2016 7:50 AM [employer] Temperature 36.7 ??C (98.1 ??F) 01/08/2016 7:50 AM CS T Respiratory Rate 18 01/08/2016 7:50 AM [employer] Oxygen Saturation 93% 01/08/2016 7:50 AM [employer] Inhaled Oxygen Concentration - - Weight 88.9 kg (196 lb) 01/06/2016 6:58 AM [employer] Height 170.2 cm (5' 7 ) 01/06/2016 6:58 AM [employer] Body Mass Index 30.7 01/06/2016 6:58 AM [employer] Medical Devices Implanted Type Area Program Aide Group Work Device Identifier Shelf Expiration Date Model / Serial / Lot Amaury Bone [place] Implanted:Qty: 1 on 06/09/2015 by Alex Nichols MD at [facility] Left: Knee [employer] 12/27/2016 [id number] / / [id number] Kn Ins Vangurd Fem Cocr Intlok L 67.5mm Implanted:Qty: 1 on 06/09/2015 by Alex Nichols MD at [facility] Left: Knee [employer] 04/28/2025 [id number] / / [id number] Ty Tibial I Beam Fix Bar 75mm Implanted:Qty: 1 on 06/09/2015 by Alex Nichols MD at [facility] Left: Knee [employer] 03/26/2025 [id number] / / [id number] Butn Pat Arcom Wire Polyeth Xsm 28 X 8 Implanted:Qty: 1 on 06/09/2015 by Alex Nichols MD at [facility] Left: Knee [employer] 06/26/2019 [id number] / / [id number] Vangrd Ant Stblzd Brg 10mm X 75mm Implanted:Qty: 1 on 06/09/2015 by Alex Nichols MD at [facility] Left: Knee [employer] 10/26/2018 [id number] / / [id number] Brdg Tib Thalia Stbl 12mm X 71mm Implanted:Qty: 1 on 01/06/2016 by Alex Nichols MD at [facility] Right: Knee [employer] 11/24/2020 [id number] / / [id number] Amaury Bone [place] Hv Implanted:Qty: 1 on 01/06/2016 by Alex Nichols MD at [facility] Right: Knee [employer] 08/25/2017 [id number] / / [id number] Ty Tibial I Beam Fix Bar 71mm Implanted:Qty: 1 on 01/06/2016 by Alex Nichols MD at [facility] Right: [employer]nee [employer] 11/30/2025 [id number] / / [id number] Ins Kn Vangurd Fem Cocr R-Intlok 67.5mm Implanted:Qty: 1 on 01/06/2016 by Alex Nichols MD at [facility] Right: [employer] 11/01/2025 [id number] / / [id number] Butn Pat Arcom Wire Polyeth Xsm 28 X 8 Implanted:Qty: 1 on 01/06/2016 by Alex Nichols MD at [facility] Right: [employer]nee [employer] 11/11/2020 [id number] / / [id number] Procedures * EYE EXAM(Performed 10/09/2022) * VAS RIGHT VENOUS DUPLEX LE(Performed 02/29/2016) Performed for Right leg pain, Presence of right artificial knee joint * XR KNEE RIGHT 3VW(Performed 02/29/2016) Performed for Primary osteoarthritis of right knee * VAS RIGHT VENOUS DUPLEX LE(Performed 02/01/2016) Performed for Right leg pain, Aftercare following right knee joint replacement surgery * HGB HCT PANEL(Performed 01/08/2016) * HGB HCT PANEL(Performed 01/07/2016) * NEURAXIAL BLOCK(Performed 01/06/2016) * ARTHROPLASTY TOTAL KNEE(Performed 01/06/2016) * EKG 12-LEAD(Performed 12/16/2015) Performed for Preop examination * COMPREHENSIVE METABOLIC PANEL(Performed 12/16/2015) Performed for Preop examination * CBC W AUTO DIFFERENTIAL(Performed 12/16/2015) Performed for Preop examination * CULTURE MSSA/MRSA(Performed 12/16/2015) Performed for Preop examination * XR KNEE LEFT 3VW(Performed 07/23/2015) Performed for Knee joint replacement by other means * CARDIAC EKG ORDER(Performed 06/16/2015) * LAB RESULTS ORDER(Performed 06/16/2015) * HGB HCT PANEL(Performed 06/11/2015) * HGB HCT PANEL(Performed 06/10/2015) * ARTHROPLASTY TOTAL KNEE(Performed 06/09/2015) Performed for Osteoarthrosis, unspecified whether generalized or localized, lower leg * NEURAXIAL BLOCK(Performed 06/09/2015) * CULTURE MSSA/MRSA(Performed 05/19/2015) Performed for Preoperative examination * EKG 12-LEAD(Performed 05/19/2015) Performed for Preoperative examination * XR KNEE BILAT 3VW(Performed 04/22/2015) Performed for Osteoarthrosis, unspecified whether generalized or localized, lower leg * XR KNEE RIGHT 3VW(Performed 08/03/2014) Performed for Knee pain, right * XR KNEE LEFT 4VW OR MORE(Performed 07/11/2014) Performed for Knee pain, acute, left Results * EYE EXAM (10/09/2022) Anatomical Region Laterality Modality Other Narrative 10/09/2022 Ordered by an unspecified provider. Scanned Document SCANNING ONLY * VAS RIGHT VENOUS DUPLEX LE (02/29/2016 1:39 PM CDT) Only the most recent of2 resultswithin the time period is included. Anatomical Region Laterality Modality Ultrasound 02/29/2016 1:24 PM CDT Narrative Procedure Note Saqib Brito MD - 03/01/2016 [facility] [address], [address] [place] [address] Lower Extremity Venous Ultrasound Report Pat.Name: JOLENE GORDON.ID: [id number] St.Date: 02/29/2016 Exam Time: 1:24:00 PM Study Type:LE Venous Age: 1 1945,70Y Sex: FEMALE Sonogrphr: Peter Suh RVT Pat. Stat.:Outpatient ICD - 9: I82.491 Acute embolism and thrombosis of other specified deep vein of right lower extremity CPT - 4: 36411 Procedures:Lower Extremity Venous - Right Race: 2 Visit ID: [id number] SUMMARY: Chronic, non-occluding DVT right popliteal and [...] Alex Nichols MD VASCULAR LAB ORDERAB LES * XR KNEE 3 VW RIGHT (02/29/2016 12:05 PM CDT) Only the most recent of2 resultswithin the time period is included. Anatomical Region Laterality Modality Lower Extremity Radiographic Elva ging Narrative 02/29/2016 2:42 PM CDT Lisa Adames RT(R) ? 02/29/2016 ??2:42 PM See progress notes for results Alex Nichols MD DIAGNOSTIC IMAGING O RDERABLES * (ABNORMAL) HGB HCT PANEL (01/08/2016 1:37 AM [employer]) Only the most recent of4 resultswithin the time period is included. Hemoglobin 10.8(L) 12.0 - 15.6 gm/dL 01/08/2016 1:58 AM [employer] [facility] Hematocrit 33.6(L) 35.9 - 45.5 % 01/08/2016 1:58 AM [employer] [facility] Blood BLOOD SPECIMEN / Unknown 01/08/2016 1:37 AM [employer] 01/08/2016 1:55 AM [employer] Alex Nichols MD LAB - HEMATOLOGY ORD ERABLES Performing Organization Address City/State/[facility] Co de Phone Number [facility] [address] [place] [address] * NEURAXIAL BLOCK (01/06/2016 8:58 AM [employer]) Narrative Uche Acosta APRN-CRNA - 01/06/2016 8:58 AM [employer] Uche Acosta APRN-CRNA ? 01/06/2016 ??8:58 AM NEURAXIAL BLOCK Patient Location: ??OR Pre Procedure Indication: ??surgical anesthesia Anticoagulation /Antithrombosis Status Confirmed: Yes Preanesthetic Checklist: ??patient identified, IV checked, site marked, risks and benefits discussed, surgical consent verified, monitors and equipment checked, pre-op evaluation done, timeout performed, informed consent obtained and questions answered / anesthesia plan accepted Monitors: ??BP, Pulse Ox and EKG Patient Condition: ??sedated, meaningful contact maintained throughout procedure Patient Position: ??sitting Procedure Block Performed: ??spinal Prep: ??Betadine Sterile Field: ??mask, cap/hat, sterile field established and sterile gloves Approach: ??midline Skin Numbed with: ??lidocaine 1% Spinal Needle Type: ??pencil-point Needle Gauge: ??25 G Needle Length: ??3.5 in Placement Site: ??L4-5 Number of Attempts: ??1 CSF: ??free flow, aspiration before injection, aspiration during injection and aspiration after injection Local Anesthetic: ??bupivacaine 0.75% in dextrose 2 ml Events CSF return injection not painful no paresthesia no other event Degree of Difficulty: ??none Position Post Procedure: ??supine Vital signs monitored and stable throughout. ??See Anesthesia Intraop record for details. Block Start Time: ??01/06/2016 8:05 AM Block End Time: ??01/06/2016 8:10 AM Block Performed by: ??GINO Vinson Notes: ??[facility] spinal tray lot #[id number] ??Exp. 12/2016. Alex Nichols MD GENERAL ANESTHESIA O RDERABLES * EKG 12-LEAD (12/16/2015 10:15 AM [employer]) Only the most recent of2 resultswithin the time period is included. Ventricular Rate 80 BPM [facility] Atrial Rate 80 BPM [facility] P-R Interval 178 ms [facility] QRS Duration ms 86 ms [facility] Q-T Interval ms 396 ms [facility] QTC Calculation (Bezet) 456 ms [facility] Calculated P [place] 52 degrees [facility] Calculated R [place] -19 degrees [facility] Calculated T [place] 52 degrees [facility] Interpretation EKG Normal sinus rhythm Normal ECG When compared with ECG of 19-MAY-2015 08:31, No significant change was found Confirmed by PHU SPANGLER GORGE ([id number]) on 12/16/2015 11:41:27 AM [facility] 12/16/2015 10:1 5 AM [employer] 12/16/2015 11:41 AM [facility] Alex Nichols MD ECG ORDERABLES [facility] * (ABNORMAL) CBC W AUTO DIFFERENTIAL (12/16/2015 9:33 AM [employer]) WBC 6.1 4.4 - 10.7 x10^9/L 12/16/2015 10:35 AM [employer] [facility] WBC Corrected x10^9/L 12/16/2015 10:35 AM [employer] [facility] RBC 4.79 3.80 - 5.20 x10^12/L 12/16/2015 10:35 AM [employer] [facility] Hemoglobin 12.8 12.0 - 15.6 gm/dL 12/16/2015 10:[address] [facility] Hematocrit 39.9 35.9 - 45.5 % 12/16/2015 10:[address] [facility] MCV 83.3 80.7 - 98.3 fl 12/16/2015 10:[address] [facility] MCH 26.7 26.7 - 34.0 pg 12/16/2015 10:[address] [facility] MCHC 32.1 30.8 - 35.9 gm/dL 12/16/2015 10:[address] [facility] Platelet Count 224 153 - 416 x10^9/L 12/16/2015 10:[address] [facility] RDW-CV 17.4(H) 12.1 - 14.9 % 12/16/2015 10:[address] [facility] MPV 9.7 9.4 - 12.9 fl 12/16/2015 10:[address] [facility] Neutrophils % 79.9(H) 44.0 - 73.0 % 12/16/2015 10:[address] [facility] Lymphocytes % 12.0(L) 20.0 - 43.0 % 12/16/2015 10:[address] [facility] Monocytes % 4.4(L) 5.0 - 13.0 % 12/16/2015 10:[address] [facility] Eosinophils % 2.8 0.0 - 6.0 % 12/16/2015 10:[address] [facility] Basophils % 0.7 0.0 - 2.0 % 12/16/2015 10:[address] [facility] Immature Granulocytes 0.2 0 - 1 % 12/16/2015 10:[address] [facility] Neutrophil Absolute 4.87 2.01 - 7.14 x10^9/L 12/16/2015 10:[address] [facility] Lymphocytes Absolute 0.73(L) 1.07 - 3.94 x10^9/L 12/16/2015 10:[address] [facility] Monocytes Absolute 0.27 0.26 - 1.07 x10^9/L 12/16/2015 10:[address] [facility] Eosinophils Absolute 0.17 0 - 0.47 x10^9/L 12/16/2015 10:[address] [facility] Basophils Absolute 0.04 0 - 0.08 x10^9/L 12/16/2015 10:[address] [facility] Immature Granulocytes Absolute 0.01 0.00 - 0.06 x10^9/L 12/16/2015 10:[address] [facility] nRBC Auto 0 /100 WBC 12/16/2015 10:[address] [facility] Blood BLOOD SPECIMEN / Unknown 12/16/2015 9:33 AM [employer] 12/16/2015 10:32 AM [facility] Alex Nichols MD LAB - HEMATOLOGY ORD ERABLES [facility] [address] [place] [address] * (ABNORMAL) COMPREHENSIVE METABOLIC PANEL (12/16/2015 9:33 AM [facility]) Glucose 200(H) 74 - 106 mg/dL 12/16/2015 10:[address] [facility] Sodium 141 136 - 145 mmol/L 12/16/2015 10:[address] [facility] Potassium 3.9 3.5 - 5.1 mmol/L 12/16/2015 10:[address] [facility] Chloride 104 98 - 107 mmol/L 12/16/2015 10:[address] [facility] CO2 31 22 - 31 mmol/L 12/16/2015 10:[address] [facility] Calcium 8.9 8.5 - 10.1 mg/dL 12/16/2015 10:[address] [facility] Anion Gap 6 5 - 20 mmol/L 12/16/2015 10:[address] [facility] BUN 18 7 - 21 mg/dL 12/16/2015 10:[address] [facility] Creatinine 0.92 0.50 - 1.30 mg/dL 12/16/2015 10:[address] [facility] Alkaline Phosphatase 68 38 - 126 U/L 12/16/2015 10:[address] [facility] ALT 25 12 - 78 U/L 12/16/2015 10:[address] [facility] AST 14 5 - 40 U/L 12/16/2015 10:[address] [facility] Protein Total 6.8 6.4 - 8.2 gm/dL 12/16/2015 10:55 AM [employer] [facility] Albumin 3.5 3.4 - 5.0 gm/dL 12/16/2015 10:55 AM [employer] [facility] Bilirubin Total 0.4 0.2 - 1.0 mg/dL 12/16/2015 10:55 AM [employer] [facility] eGFR by MDRD >60 >60 mL/min/1.7 3m2 12/16/2015 10:55 AM [employer] [facility] eGFR by MDRD >60 >60 mL/min/1.7 3m2 12/16/2015 10:55 AM [employer] [facility] Blood BLOOD SPECIMEN / Unknown 12/16/2015 9:33 AM [employer] 12/16/2015 10:32 AM [employer] Alex Nichols MD LAB - CHEMISTRY DANILO WARY [facility] [address] [place] [address] * CULTURE MSSA/MRSA (12/16/2015 8:35 AM [employer]) Only the most recent of2 resultswithin the time period is included. Culture Negative for MRSA/MSSA SUZANNE 12/17/2015 2:28 PM [facility] MICROBIOLOGY Microbiology SPECIMEN FROM NASAL FOSSAE / Unknown 12/16/2015 8:35 AM [employer] 12/16/2015 10:31 AM [employer] Alex Nichols MD LAB - MICROBIOLOGY O RDSALLY [facility] [address] [place] [address] [phone] * XR KNEE 3 VW LEFT (07/23/2015 9:51 AM CDT) Anatomical Region Laterality Modality Lower Extremity Radiographic Elva ging Narrative 07/23/2015 11:48 AM CDT Lisa Adames, RT(R) ? 07/23/2015 11:48 AM See progress notes for results Alex Nichols MD DIAGNOSTIC IMAGING O CHERI * LAB RESULTS ORDER (06/16/2015 5:03 AM CDT) Narrative 06/16/2015 5:03 AM CDT Ordered by an unspecified provider. Scanned Document LAB - THERAPEUTIC DR NEGRETE MONITORING ORDERABLES * CARDIAC EKG ORDER (06/16/2015 5:03 AM CDT) Narrative 06/16/2015 5:03 AM CDT Ordered by an unspecified provider. Scanned Document CARDIAC SERVICES ORD ERABLES * NEURAXIAL BLOCK (06/09/2015 11:15 AM CDT) Narrative Quang Sánchez APRN-CRISTHIAN - 06/09/2015 11:15 AM CDT Quang Sánchez CRNA ? 06/09/2015 11:15 AM NEURAXIAL BLOCK Patient Location: ??OR Pre Procedure Indication: ??surgical anesthesia Anticoagulation /Antithrombosis Status Confirmed: Yes Preanesthetic Checklist: ??patient identified, IV checked, site marked, risks and benefits discussed, surgical consent verified, monitors and equipment checked, pre-op evaluation done, timeout performed, informed consent obtained and questions answered / anesthesia plan accepted Monitors: ??Pulse Ox Patient Condition: ??sedated, meaningful contact maintained Patient Position: ??sitting Procedure Block Performed: ??spinal Prep: ??Betadine Sterile Field: ??sterile gloves, sterile field established, cap/hat and mask Approach: ??midline Skin Numbed with: ??lidocaine 1% Spinal Needle Type: ??Quincke Needle Gauge: ??25 G Placement Site: ??L2-3 Number of Attempts: ??1 CSF: ??free flow, aspiration before injection and aspiration during injection Local Anesthetic: ??bupivacaine 0.75% in dextrose 2 Events CSF return injection not painful no paresthesia no other event Degree of Difficulty: ??none Position Post Procedure: ??supine Vital signs monitored and stable throughout. ??See Anesthesia Intraop record for details. Block Start Time: ??06/09/2015 10:57 AM Block Performed by: ??Gerardo CHRISTIAN Alex Nichols MD GENERAL ANESTHESIA O RDERABLES * XR KNEE BILAT 3 VIEWS (04/22/2015 10:07 AM CDT) Anatomical Region Laterality Modality Lower Extremity Radiographic Elva ging Narrative 04/22/2015 12:00 PM CDT Myrna Adler ? 04/22/2015 12:00 PM See progress notes for results Cornelio Alba PA-C DIAGNOSTIC IMAGING ORDERABLES * XR KNEE 4+ VW LEFT (07/11/2014 12:15 PM CDT) Anatomical Region Laterality Modality Lower Extremity Radiographic Elva ging 07/11/2014 12:2 9 PM CDT Narrative 07/11/2014 12:32 PM CDT Left Knee 4 View INDICATION: Left knee pain. FINDINGS: No acute fracture or malalignment is seen. Severe left knee osteoarthritis with advanced medial and patellofemoral compartment joint space loss and osteophytes. No evidence of knee joint effusion. Nonaggressive bony lesion distal left femur. Procedure Note Mitchell Castrejon MD - 07/11/2014 Left Knee 4 View INDICATION: Left knee pain. FINDINGS: No acute fracture or malalignment is seen. Severe left knee osteoarthritis with advanced medial and patellofemoral compartment joint space loss and osteophytes. No evidence of knee joint effusion. Nonaggressive bony lesion distal left femur. Cierra Mtz PA-C DIAGNOSTIC IMAGING ORDERABLES Care Teams Pure Pak Machine Operator Relationship Specialty Start Date End Date Francisco Long MD PCP - General Internal Medicine 07/03/14 [place] [id number] [place] [address] Orthopedic Surgery 04/22/15 Usha Bryan, TAO [address] [place] [address] Bunch Trimmer Mold 01/07/16 [place] [address] [place] [address] Surgical Oncologist Surgical Oncology 07/05/18
--- OUTSIDE RECORDS SUMMARY | 2024-11-16 12:48 | XMS_ITS | Encounter Summary ---
Author Organization [facility] Address [address] [place] [address] Care Team Providers Care Electric Meter Repairer Apprentice Name Role Phone Francisco Long MD Primary Care Provider Unavail able Alex Nichols MD Unavailable [phone] Usha Bryan RN Unavailable [phone] Reason for Referral * Radiology Services (Routine) - Closed Specialty Diagnoses / Procedures Referred By Contac t Referred To Contact Vascular Lab Diagnoses Right leg pain Presence of right artificial knee joint Procedures V[place] [address] [place] [address] Referral ID Status Reason Start Date Expiration Date Visits Re quested Visits Authorized [id number] Closed 02/29/2016 08/27/2016 1 1 Reason for Visit * Reason Comments Post-Op right knee Encounter Details Date Type Department Care Team (Latest Contact Info) Description 02/29/2016 11:50 AM CDT Office Visit [facility] [id number] [place] [address] [place] [address] [place] [address] Presence of right artificial knee joint (Primary Dx); Primary osteoarthritis of right knee; Right leg pain Social History Tobacco Use Types Packs/Day Years [...] No 01/06/2016 documented as of this encounter Patient Instructions * Patient Instructions* Lupe Duran MA - 02/29/2016 2:42 PM CDT Please call the office with any questions or concerns. documented in this encounter Progress Notes * Kelly Edwards PA-C - 02/29/2016 12:51 PM CDT Total Knee Post-op Followup Six weeks History: Shauna Gordon is six weeks status post right total knee arthroplasty. She does not have pain in her right knee, but a popliteal DVT was discovered at her three-week follow up visit. Shehas been on Eliquis since this time. She is unsure if the swelling in her leg increases and decreases throughout the day. She note the right leg feeling heavy since surgery. She had her left knee replaced in May of 2015, and does not remember having the heaviness feeling in the left leg. Current Outpatient Prescriptions Medication Sig Dispense Refill ??? apixaban (ELIQUIS) 5 MG tablet Take 1 Tab by mouth 2 times daily Take 10mg BID x 7 days. After 7 days start 5mg BID 60 Tab 3 ??? methotrexate 2.5 MG tablet Take 6 Tabs by mouth every 7 days Resume when ok with your eye care professional 3 ??? ferrous sulfate 325 (65 FE) MG tablet Take 325 mg by mouth daily with breakfast ??? losartan-hydrochlorothiazide (HYZAAR) 100-12.5 MG tablet Take 1 Tab by mouth once daily. ??? Other once daily Brevail Plant Lignan Supplement Instructed to stop 10 days before surgery No current facility-administered medications for this visit. Physical Examination: On examination today, patient was able to ambulate using no assistive device.Her right knee incision is well healed, with no erythema, drainage, or evidence of infection with asmall effusion. Active range of motion in the office is 1 degrees to 118. No varus or valgus instability is present. Radiographs: Weight bearing AP, lateral, and merchant views demonstrate a well implanted anterior stabilized cemented right total knee arthroplasty. There is no evidence of loosening, malpositioning,or osteolysis. Impression: S/P right total knee arthroplasty. Plan: We sent her for a follow up doppler, results pending. I gave her a handout on DVTs and aftercare. Patient should continue with home physical therapy exercises. Patient is to call with any concerns or issues prior to the next visit. Patient is educated and given handout on additional exercisesto obtain better flexion/extension. She demonstrated understanding of this plan and has no further questions or concerns at this time. Orders Placed This Encounter ??? XR KNEE 3 VW RIGHT Doppler of the right lower extremity showed: Chronic, non-occluding DVT right popliteal and one of two paired posterior tibial veins. She will continue with eliquis at this time. Kelly Edwards PA-C * Mira Keller MA - 02/29/2016 11:59 AM CDT 7.5 weeks post op R TKA, performed 01/06/16, will obtain xrays documented in this encounter Procedure Notes * Lisa Adames RT(R) - 02/29/2016 12:07 PM CDTAssociated Order(s): XR KNEE 3 VW RIGHT See progress notes for results documented in this encounter Plan of Treatment Not on file documented as of this encounter Procedures Procedure Name Priority Date/Time Associated Diagnosis Comments XR KNEE RIGHT 3VW Routine 02/29/2016 12: 05 PM CDT Primary osteoarthritis of right knee documented in this encounter Results * VAS RIGHT VENOUS DUPLEX LE (02/29/2016 1:39 PM CDT) Anatomical Region Laterality Modality Ultrasound 02/29/2016 1:24 PM CDT Narrative Procedure Note Saqib Brito MD - 03/01/2016 [facility] [address], [address] [place] [address] Lower Extremity Venous Ultrasound Report Pat.Name: SHAUNA GORDON Pat.ID: [id number] St.Date: 02/29/2016 Exam Time: 1:24:00 PM Study Type:LE Venous Age: 1 1945,70Y Sex: FEMALE Sonogrphr: Peter Suh RVT Pat. Stat.:Outpatient ICD - 9: I82.491 Acute embolism and thrombosis of other specified deep vein of right lower extremity CPT - 4: 18828 Procedures:Lower Extremity Venous - Right Race: 2 Visit ID: [id number] SUMMARY: Chronic, non-occluding DVT right popliteal and [...] 3 VW RIGHT (02/29/2016 12:05 PM CDT) Anatomical Region Laterality Modality Lower Extremity Radiographic Elva ging Narrative 02/29/2016 2:42 PM CDT Lisa Adames, RT(R) ? 02/29/2016 ??2:42 PM See progress notes for results Alex Nichols MD DIAGNOSTIC IMAGING O RDERABLES documented in this encounter Visit Diagnoses Diagnosis Presence of right artificial knee joint- Primary Knee joint replacement by other means Primary osteoarthritis of right knee Primary localized osteoarthrosis, lower leg Right leg pain Pain in limb Right leg pain Pain in limb Presence of right artificial knee joint Knee joint replacement by other means documented in this encounter Care Teams Electric Meter Repairer Apprentice Relationship Specialty Start Date End Date Francisco Long MD PCP - General Internal Medicine 07/03/14 [place] [address] [place] [address] Orthopedic Surgery 04/22/15 [place] [address] [address] [place] [address] Antique Repairer 01/07/16 documented as of this encounter
--- OUTSIDE RECORDS SUMMARY | 2024-11-16 12:48 | XMS_ITS | Clinical Summary ---
Author Organization [facility] Address [address] [facility] [place] [address] Care Team Providers Care Knitting Demonstrator Name Role Phone Francisco Long MD Primary Care Provider Unavail able Alex Nichols MD Unavailable [phone] Usha Bryan RN Unavailable [phone] Micki Cadena MD Unavailable [phone] Source Comments [facility],non-owned Affiliates and Associated Physician Practices is amultiple site organization consisting of ambulatory clinics and hospital sitesin [place], [place], [place] and [place]. This disclosure is being madepursuant to the Care Everywhere program and may not contain all information available regarding this patient. Last updated 18.[facility] Allergies No known active allergies Medications * Be aware that medications may not be up to date on this document. Alwaysverify current medications with the patient. Medication Sig Dispensed Refills Start Date End Date Status losartan-hydrochlor othiazide (HYZAAR) 100-12.5 MG tablet Take 1 Tab by mouth once daily. Active ferrous sulfate 325 (65 FE) MG tablet Take 325 mg by mouth daily with breakfast Active Other once daily Brevail Plant Lignan Supplement Instructed to stop 10 days before surgery Active methotrexate 2.5 MG tabletIndications:O steoarthrosis, unspecified whether generalized or localized, involving lower leg Take 6 Tabs by mouth every 7 days Resume when ok with your cognos 3 01/07/2016 Active ELIQUIS 5 MG tablet TAKE 1 TABLET BY MOUTH TWICE DAILY 60 Tab 2 05/25/2016 Active Active Problems Problem Noted Date Diagnosed Date Presence of right artificial knee joint 02/29/20 16 Osteoarthrosis involving lower leg 08/03/2014 Overview (02/19/2016): 2015 IMO Updt Social History Tobacco Use Types Packs/Day Years [...] Comments Blood Pressure 117/64 01/08/2016 7:50 AM DIESEL TRACTOR OPERATOR Pulse 95 01/08/2016 7:50 AM DIESEL TRACTOR OPERATOR Temperature 36.7 ??C (98.1 ??F) 01/08/2016 7:50 AM CS T Respiratory Rate 18 01/08/2016 7:50 AM DIESEL TRACTOR OPERATOR Oxygen Saturation 93% 01/08/2016 7:50 AM DIESEL TRACTOR OPERATOR Inhaled Oxygen Concentration - - Weight 88.9 kg (196 lb) 01/06/2016 6:58 AM DIESEL TRACTOR OPERATOR Height 170.2 cm (5' 7 ) 01/06/2016 6:58 AM DIESEL TRACTOR OPERATOR Body Mass Index 30.7 01/06/2016 6:58 AM DIESEL TRACTOR OPERATOR Plan of Treatment Health Maintenance Due Date Last Done Comments BONE DENSITY TESTING 1945 MEDICARE AWV ? 12 MONTHS 1945 HEPATITIS C SCREENING 12/20/1964 DTAP/TDAP/TD VACCINES (1 - Tdap) 1965 ZOSTER VACCINE (1 of 2) 1996 PNEUMOCOCCAL VACCINE 65+ (1 of 1 - PCV) 2011 Respiratory Syncytial Virus (RSV) Vaccine Pt: or over 60 yrs (1 - 1-dose 75+ series) 2021 DEPRESSION SCREENING 11/26/2023 COVID-19 VACCINE ( - 2023-2 5 season) 2024 INFLUENZA VACCINE (#1) 2024 HEPATITIS B VACCINE Aged Out No longe r eligible based on patient's age to complete this topic HIB VACCINE Aged Out No longer eligi ble based on patient's age to complete this topic HPV VACCINE Aged Out No longer eligi ble based on patient's age to complete this topic MENINGOCOCCAL VACCINE Aged Out No meagan cindy eligible based on patient's age to complete this topic Medical Devices Implanted Type Area Heating And Air Conditioning Mechanic Device Identifier Shelf Expiration Date Model / Serial / Lot Amaury Bone [place] Hv Implanted:Qty: 1 on 06/09/2015 by Alex Nichols MD at [facility] Left: Knee [employer] 12/27/2016 [id number] / / [id number] Kn Ins Vangurd Fem Cocr Intlok L 67.5mm Implanted:Qty: 1 on 06/09/2015 by Alex Nichols MD at [facility] Left: Knee [employer] 04/28/2025 [id number] / / [id number] Ty Tibial I Beam Fix Bar 75mm Implanted:Qty: 1 on 06/09/2015 by Alex Nichols MD at [facility] Left: Knee [employer] 03/26/2025 [id number] / / [id number] Butn Pat Arcom Wire Polyeth Xsm 28 X 8 Implanted:Qty: 1 on 06/09/2015 by Alex Nichols MD at [facility] Left: Knee [employer] 06/26/2019 [id number] / / [id number] Vangrd Ant Stblzd Brg 10mm X 75mm Implanted:Qty: 1 on 06/09/2015 by Alex Nichols MD at [facility] Left: Knee [employer] 10/26/2018 [id number] / / [id number] Brdg Tib Thalia Stbl 12mm X 71mm Implanted:Qty: 1 on 01/06/2016 by Alex Nichols MD at [facility] Right: Knee [employer] 11/24/2020 [id number] / / [id number] Amaury Bone [place] Hv Implanted:Qty: 1 on 01/06/2016 by Alex Nichols MD at [facility] Right: Knee [employer] 08/25/2017 [id number] / / [id number] Ty Tibial I Beam Fix Bar 71mm Implanted:Qty: 1 on 01/06/2016 by Alex Nichols MD at [facility] Right: Knee [employer] 11/30/2025 [id number] / / [id number] Ins Kn Vangurd Fem Cocr R-Intlok 67.5mm Implanted:Qty: 1 on 01/06/2016 by Alex Nichols MD at [facility] Right: Knee [employer] 11/01/2025 [id number] / / [id number] Ced Rowland Wire Polyeth Xsm 28 X 8 Implanted:Qty: 1 on 01/06/2016 by Alex Nichols MD at [facility] Right: Knee [employer] 11/11/2020 [id number] / / [id number] Insurance Payer Benefit Plan / Group Subscriber ID Effective Dates Phone Address Type MEDICARE WPS MEDICARE PART B [id number] Effective for all dates [address] [address] [place] [address] Medicare MEDICARE MEDICARE PART A AND B [id number] 2011-Pres ent [address] [place] [address] Medicare COMMERCIAL GENERIC COMMERCIAL PLAN GENERIC [id number] Effective for all dates [id number] [address] [address] [place] [address] Commercial Advance Directives * Full Code (Latest Code Status on File) Date Activated Date Inactivated Comments 01/06/2016 11:24 AM 01/08/2016 2:05 PM * Full Code Date Activated Date Inactivated Comments 06/09/2015 3:08 PM 06/12/2015 1:28 PM Care Teams Knitting Demonstrator Relationship Specialty Start Date End Date Francisco Long MD PCP - General Internal Medicine 07/03/14 [place] [address] [place] [address] Orthopedic Surgery 04/22/15 [place] [address] [address] [place] [address] Whiting Can Worker 01/07/16 [place] [address] [place] [address] Surgical Oncologist Surgical Oncology 07/05/18
--- OUTSIDE RECORDS SUMMARY | 2024-11-16 12:48 | XMS_ITS | Encounter Summary ---
Author Organization [facility] Address [address] [place] [address] Care Team Providers Care Extrusion Press Adjuster Name Role Phone Francisco Long MD Primary Care Provider Unavail able Alex Nichols MD Unavailable [phone] Usha Bryan RN Unavailable [phone] Reason for Visit * Reason Onset Date Comments Results 03/07/2016 Scheduling 03/07/2016 Encounter Details Date Type Department Care Team (Late st Contact Info) Description 03/07/2016 Telephone [facility] [address] [address] [place] [address] [address] Results; Scheduling Social History Tobacco Use Types Packs/Day Years [...] Telephone Encounter - Lupe Duran MA - 03/07/2016 3:15 PM CDT Called to advise that 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 She is to continue taking her Eliquis, and I made an appointment for her to come back in on 04/04/16 @10am for her 3 month follow up. * Telephone Encounter - Rayna Galan - 03/07/2016 11:09 AM CDT Patient calling for doppler results, he states she never heard back form anyone regarding these results. She also wants to know when Dr Nichols wants to see her back. documented in this encounter Plan of Treatment Not on file documented as of this encounter Visit Diagnoses Not on filedocumented in this encounter Care Teams Extrusion Press Adjuster Relationship Specialty Start Date End Date Francisco Long MD PCP - General Internal Medicine 07/03/14 [place] [address] [place] [address] Orthopedic Surgery 04/22/15 [place] [address] [place], [place] [id number] Material Expeditor 01/07/16 documented as of this encounter
--- OUTSIDE RECORDS SUMMARY | 2024-11-16 12:48 | XMS_ITS | Encounter Summary ---
Author Organization [facility] Address [address] [place] [address] Care Team Providers Care Primary Care Nurse Name Role Phone Francisco Long MD Primary Care Provider Unavail able Alex Nichols MD Unavailable [phone] Usha Bryan RN Unavailable [phone] Reason for Visit * Reason Comments Follow-up Encounter Details Date Type Department Care Team (Late st Contact Info) Description 04/04/2016 10:00 AM CDT Office Visit [facility] [address] [address] [place] [address] [address] Presence of right artificial knee [...] as of this encounter Progress Notes * Kelly Edwards PA-C - 04/04/2016 11:25 AM CDT Total Knee Post-op Followup Three Months History: Jolene Cedillo is three months status post right total knee arthroplasty. She is doingwell. She notes some muscle aches in both legs, especially the calves. Current Outpatient Prescriptions Medication Sig Dispense Refill ??? apixaban (ELIQUIS) 5 MG tablet Take 1 Tab by mouth 2 times daily Take 10mg BID x 7 days. After 7 days start 5mg BID 60 Tab 3 ??? methotrexate 2.5 MG tablet Take 6 Tabs by mouth every 7 days Resume when ok with your electronic funds transfer coordinator 3 ??? ferrous sulfate 325 (65 FE) MG tablet Take 325 mg by mouth daily with breakfast ??? Other once daily Brevail Plant Lignan Supplement Instructed to stop 10 days before surgery ??? losartan-hydrochlorothiazide (HYZAAR) 100-12.5 MG tablet Take 1 Tab by mouth once daily. No current facility-administered medications for this visit. Physical Examination: On examination today, she is able to ambulate with a visible limp using no assistive device. Her right knee incision is well healed, with no erythema, drainage, or evidence of infection with a trace effusion. Active range of motion in the office is 1 degrees to 120. No varus or valgus instability is present. Her lower extremities are without edema Impression: S/P right total knee arthroplasty. Plan: We will see her back in the office in three months. At this point we will reevaluate her calfsymptoms and send her for a doppler. She will continue on the Eliquis until we have results from this doppler 3 months from now. She can continue to take tylenol as needed for pain, staying under 4,000 mg. Patient should continue with home physical therapy exercises. I demonstrated stretches for her calves and hamstrings and gave her a handout with this illustrated. Patient educated and given a handouton additional exercises to obtain better flexion/extension and strengthening exercises. Patient wasreminded to take prophylactic antibiotics for two years following the date of surgery prior to dental procedures. Follow up is on an as needed basis or if the patient has any concerns or issues priorto the next visit. All questions and concerns at this time were addressed and patient demonstrated understanding of the plan. Kelly A Bokermann, PA-C * Liane Weber - 04/04/2016 9:56 AM CDT rv/right tka 01/06/16 documented in this encounter Plan of Treatment Not on file documented as of this encounter Visit Diagnoses Diagnosis Presence of right artificial knee joint- Primary Knee joint replacement by other means documented in this encounter Care Teams Primary Care Nurse Relationship Specialty Start Date End Date Francisco Long MD PCP - General Internal Medicine 07/03/14 [place] [address] [address] [place] [id number] Orthopedic Surgery 04/22/15 [place] [address] [address] [place] [address] [employer] 01/07/16 documented as of this encounter
--- OUTSIDE RECORDS SUMMARY | 2024-11-16 12:48 | XMS_ITS | Referral Summary ---
Author Organization [facility] Address [address] [place] [address] Care Team Providers Care Coil Winding Machines Set Up Mechanic Name Role Phone Francisco Long MD Primary Care Provider Unavail able Alex Nichols MD Unavailable [phone] Usha Bryan RN Unavailable [phone] Micki Cadena MD Unavailable [phone] Source Comments [facility],non-owned Affiliates and Associated Physician Practices is amultiple site organization consisting of ambulatory clinics and hospital sitesin [place], [place], [place] and [place]. This disclosure is being madepursuant to the Care Everywhere program and may not contain all information available regarding this patient. Last updated 18.[facility] Allergies No known active allergies Medications [...] 7 days Resume when ok with your manager enrollment 3 01/07/2016 Active ELIQUIS 5 MG tablet [...] Comments Blood Pressure 117/64 01/08/2016 7:50 AM BLURB WRITER Pulse 95 01/08/2016 7:50 AM BLURB WRITER Temperature 36.7 ??C (98.1 ??F) 01/08/2016 7:50 AM CS T Respiratory Rate 18 01/08/2016 7:50 AM BLURB WRITER Oxygen Saturation 93% 01/08/2016 7:50 AM BLURB WRITER Inhaled Oxygen Concentration - - Weight 88.9 kg (196 lb) 01/06/2016 6:58 AM BLURB WRITER Height 170.2 cm (5' 7 ) 01/06/2016 6:58 AM BLURB WRITER Body Mass Index 30.7 01/06/2016 6:58 AM BLURB WRITER Functional Status Functional Status Response Date of [...] person have difficulty concentrating/remembering/making decisions? No 01/06/2016 Plan of Treatment Not on file Medical Devices Implanted Type Area Cost Estimating Manager Device Identifier Shelf Expiration Date Model / Serial / Lot Amaury Bone [place] Hv Implanted:Qty: 1 on 06/09/2015 by Alex Nichols MD at [facility] Left: Knee [employer] 12/27/2016 [id number] / / [id number] Kn Ins Vangurd Fem Cocr Intlok L 67.5mm Implanted:Qty: 1 on 06/09/2015 by Alex Nichols MD at [facility] Left: Knee [employer] 04/28/2025 [id number] / / [id number] Ty Tibial I Beam Fix Bar 75mm Implanted:Qty: 1 on 06/09/2015 by Alex Nichols MD at [facility] Left: Knee [employer] 03/26/2025 [id number] / / [id number] Butn Pat Arcom Wire Polyeth Xsm 28 X 8 Implanted:Qty: 1 on 06/09/2015 by Alex Nichols MD at [facility] Left: Knee [employer] 06/26/[id number] / / [id number] Vangrd Ant Stblzd Brg 10mm X 75mm Implanted:Qty: 1 on 06/09/2015 by Alex Nichols MD at [facility] Left: Knee [employer] 10/26/2018 [id number] / / [id number] Brdg Tib Thalia Stbl 12mm X 71mm Implanted:Qty: 1 on 01/06/2016 by Alex Nichols MD at [facility] Right: Knee [employer] 11/24/2020 [id number] / / [id number] Amaury Bone [place] Hv Implanted:Qty: 1 on 01/06/2016 by Alex Nichols MD at [facility] Right: Knee [employer] 08/25/2017 [id number] / / [id number] Ty Tibial I Beam Fix Bar 71mm Implanted:Qty: 1 on 01/06/2016 by Alex Nichols MD at [facility] Right: Knee [employer] 11/30/2025 [id number] / / [id number] Ins Kn Vangurd Fem Cocr R-Intlok 67.5mm Implanted:Qty: 1 on 01/06/2016 by Alex Nichols MD at [facility] Right: Knee [employer] 11/01/2025 [id number] / / [id number] Butn Pat Arcom Wire Polyeth Xsm 28 X 8 Implanted:Qty: 1 on 01/06/2016 by Alex Nichols MD at [facility] Right: Knee [employer] 11/11/[id number] / / [id number] Administered Medications Advance Directives * Full Code (Latest Code Status on File) Date Activated Date Inactivated Comments 01/06/2016 11:24 AM 01/08/2016 2:05 PM * Full Code Date Activated Date Inactivated Comments 06/09/2015 3:08 PM 06/12/2015 1:28 PM Care Teams Coil Winding Machines Set Up Mechanic Relationship Specialty Start Date End Date Francisco Long MD PCP - General Internal Medicine 07/03/14 [place] [address] [place] [address] Orthopedic Surgery 04/22/15 [place] [address] [address] [place] [address] Cosmetic Sales Assistant 01/07/16 [place] [address] [address] [place] [address] Surgical Oncologist Surgical Oncology 07/05/18
--- OUTSIDE RECORDS SUMMARY | 2024-11-16 12:48 | XMS_ITS | Encounter Summary ---
Author Organization [facility] Address [address] [facility] [place] [address] Care Team Providers Care Barrel Rifler Button Name Role Phone Francisco Long MD Primary Care Provider Unavail able Alex Nichols MD Unavailable [phone] Usha Bryan RN Unavailable [phone] Micki Cadena MD Unavailable [phone] Reason for Visit * Reason Onset Date Comments Question 07/05/2018 Encounter Details Date Type Department Care Team (Late st Contact Info) Description 07/05/2018 Telephone [facility] Orthopedics [id number] [place] [id number] [place] [address] [address] Question Social History Tobacco Use Types Packs/Day Years [...] Telephone Encounter - Lupe Duran MA - 07/05/2018 4:53 PM CDT Jolene is scheduled to undergo surgery by Dr. Micki Cadena in the near future and asked that we communicate with her office regarding what she was treated with for her DVT after her knee replacement in 2015. I faxed a letter to Dr. Cadena with those details. * Telephone Encounter - Princess Omari - 07/05/2018 3:07 PM CDT Who is calling? self What is the reason for call? Pt had surgery with Dr. Nichols on Dec 2015. Per pt, after the surgeryshe had a blood clot. Pt is asking what medication was given to her for that blood clot after her surgery. Expected Response from the Clinic? ( ex. Call back, etc..) call back #: [phone] with that information documented in this encounter Plan of Treatment Not on file documented as of this encounter Visit Diagnoses Not on filedocumented in this encounter Care Teams Barrel Rifler Button Relationship Specialty Start Date End Date Francisco Long MD PCP - General Internal Medicine 07/03/14 [place] [address] [place] [address] Orthopedic Surgery 04/22/15 Usha Bryan, TAO [address] [address] [place] [address] Ironing Worker 01/07/16 [place] [address] [address] [place] [address] Surgical Oncologist Surgical Oncology 07/05/18 documented as of this encounter
--- OUTSIDE RECORDS SUMMARY | 2024-11-16 12:49 | XMS_ITS | Encounter Summary ---
Author Organization [facility] Address [address] [facility] [place] [address] Care Team Providers Care Ceramic Design Engineer Name Role Phone Francisco Long MD Primary Care Provider Unavail able Alex Nichols MD Unavailable [phone] Usha Bryan RN Unavailable [phone] Encounter Details Date Type Department Care Team (Late st Contact Info) Description 02/01/[address] [facility] Orthopedics [address] [facility] [address] [place] [address] [place] [address] [facility] [address] [place] [address] Social History Tobacco Use Types Packs/Day Years [...] No 01/06/2016 documented as of this encounter Plan of Treatment Not on file documented as of this encounter Visit Diagnoses Not on filedocumented in this encounter Care Teams Ceramic Design Engineer Relationship Specialty Start Date End Date Francisco Long MD PCP - General Internal Medicine 07/03/14 [place] [address] [address] [place] [address] Orthopedic Surgery 04/22/15 Usha Bryan, TAO [address] [address] [place] [address] Level Vial Inside Grinder 01/07/16 documented as of this encounter
--- OUTSIDE RECORDS SUMMARY | 2024-11-16 12:49 | XMS_ITS | Encounter Summary ---
Author Organization [facility] Address [address] [facility] [place] [address] Care Team Providers Care Research Assistant Name Role Phone Francisco Long MD Primary Care Provider Unavail able Alex Nichols MD Unavailable [phone] Usha Bryan RN Unavailable [phone] Reason for Visit * Reason Onset Date Comments Question 02/02/2016 Encounter Details Date Type Department Care Team (Late st Contact Info) Description 02/02/2016 Telephone [facility] Orthopedics [address] [facility] [address] [place] [address] [place] [address] [address] Question Social History Tobacco Use [...] encounter Miscellaneous Notes * Telephone Encounter - Chitra Matos, RN - 02/02/2016 10:03 AM CST Returned call and spoke to patient and answered her questions. Advised her to take Eliquis 10mg BIDx 7 days then go to 5mg BID. TIER * Telephone Encounter - Dawna Diehl - 02/02/2016 8:13 AM CST Patient called today and received a script for Eliquis and has questions regarding the directions. When she picked up the prescription the directions were different than she was told. Please call at [phone] available anytime or can leave a message. TIER documented in this encounter Plan of Treatment Not on file documented as of this encounter Visit Diagnoses Not on filedocumented in this encounter Care Teams Research Assistant Relationship Specialty Start Date End Date Francisco Long MD PCP - General Internal Medicine 07/03/14 [place] [address] [place] [address] Orthopedic Surgery 04/22/15 [place] [address] [address] [place] [address] Global Program Director 01/07/16 documented as of this encounter
--- OUTSIDE RECORDS SUMMARY | 2024-11-16 12:49 | XMS_ITS | Encounter Summary ---
Author Organization [facility] Address [facility] [facility] [place] [address] Care Team Providers Care Quarter Folder Name Role Phone Francisco Long MD Primary Care Provider Unavail able Alex Nichols MD Unavailable [phone] Usha Bryan RN Unavailable [phone] Reason for Visit * Radiology Services (Routine) - Closed Specialty Diagnoses / Procedures Referred By Contac t Referred To Contact Vascular Lab Diagnoses Right leg pain Aftercare following right knee joint replacement surgery Procedures [place] [address] [facility] [address] [place] [address] Referral ID Status Reason Start Date Expiration Date Visits Re quested Visits Authorized [id number] Closed 02/01/2016 07/30/2016 1 1 Encounter Details Date Type Department Care Team (Latest Contact Info) Description 02/01/2016 3:00 PM REGISTRAR ASSISTANT - 02/01/2016 11:59 PM [facility] Hospital Encounter [facility] Vascular Services [address] [facility], [address] [place] [address] [place] [address] [facility] [address] [place] [address] Discharge Disposition: Home or Self Care Social [...] 7 days Resume when ok with your aerial gunner superintendent 3 01/07/2016 Other once daily [employer] [place] Supplement Instructed to stop 10 days before surgery apixaban (ELIQUIS) 5 MG tablet Take 1 Tab by mouth 2 times daily Take 10mg BID x 7 days. After 7 days start 5mg BID 60 Tab 3 02/01/2016 05/22/2016 famotidine (PEPCID) 20 MG tablet Take 1 Tab by mouth once daily 01/07/2016 02/29/2016 documented as of this encounter Plan of Treatment Not on file documented as of this encounter Procedures Procedure Name Priority Date/Time Associated Diagnosis Comments VAS RIGHT VENOUS DUPLEX LE Routine 02/01/2016 3:10 PM REGISTRAR ASSISTANT Right leg pain Aftercare following right knee joint replacement surgery documented in this encounter Results * VAS RIGHT VENOUS DUPLEX LE (02/01/2016 3:10 PM REGISTRAR ASSISTANT) Anatomical Region Laterality Modality Ultrasound 02/01/2016 4:01 PM REGISTRAR ASSISTANT Narrative Procedure Note Saqib Brito MD - 02/03/2016 [facility] Vascular [place] [address], [address] [place] [address] Lower Extremity Venous Ultrasound Report Pat.Name: SHAUNA GORDONID: [id number] St.Date: 02/01/2016 Exam Time: 4:01:00 PM Study Type:LE Venous Age: 1 1945,70Y Sex: FEMALE Sonogrphr: Peter SuhMEKHI. Stat.:Outpatient ICD - 9: I82.491 Acute embolism and thrombosis of other specified deep vein of right lower extremity CPT - 4: 47624 Procedures:Lower Extremity Venous - Right Race: 2 Visit ID: [id number] SUMMARY: Acute deep vein thrombosis of the right leg involving the popliteal and tibial vein(s). FINDINGS: Procedure: Venous duplex imaging of the right lower extremity was performed using color flow and spectral Doppler analysis. The contralateral common femoral vein was also examined. Study Quality: This study is of adequate technical quality. Rt Leg: There is acute, occlusive thrombus in the popliteal vein. There is acute, occlusive thrombus in the posterior tibial veins. Signed 02/03/2016 11:39 AM Saqib Brito MD Alex Nichols MD VASCULAR LAB ORDERAB LES documented in this encounter Visit Diagnoses Diagnosis Right leg pain Pain in limb Aftercare following right knee joint replacement surgery documented in this encounter Care Teams Quarter Folder Relationship Specialty Start Date End Date Francisco Long MD PCP - General Internal Medicine 07/03/14 [place] [address] [address] Orthopedic Surgery 04/22/15 [place] [address] [address] [place] [address] Direct Marketing Executive 01/07/16 documented as of this encounter
--- OUTSIDE RECORDS SUMMARY | 2024-11-16 12:49 | XMS_ITS | Encounter Summary ---
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 Procedures VAS [place] [address] [address] [place] [address] Referral ID Status Reason Start Date Expiration Date Visits Re quested Visits Authorized [id number] Closed 02/01/2016 07/30/2016 1 1 HANDLER Reason for Visit * Reason Comments Follow-up POv of RTKA 3 wks ou t Encounter Details Date Type Department Care Team (Late st Contact Info) Description 02/01/2016 2:30 PM LOG HANDLER Office Visit [facility] Orthopedics [id number] [place] [address] [place] [address] [address] [place] [address] Right leg pain (Primary Dx); Aftercare following right knee joint replacement surgery Social History Tobacco Use Types Packs/Day Years [...] * Patient Instructions* Lupe Duran MA - 02/01/2016 5:16 PM LOG HANDLER Please call the office with any questions or concerns. HANDLER documented in this encounter Progress Notes * Lupe Duran MA - 02/01/2016 3:19 PM CST Venous doppler came back positive. HANDLER * Cornelio Alba PA-C - 02/01/2016 2:51 PM CST 3 weeks out upset stomach 2-115 Get doppler HANDLER * Elias Trujillo - 02/01/2016 2:26 PM CST POv of RTKA 3 wks out HANDLER documented in this encounter H&P Notes * Cornelio Alba PA-C - 02/04/2016 1:26 AM CST DATE OF SERVICE: 02/01/2016 Mrs. Gordon returns to our office today for the right knee. She is 3-1/2 weeks out. She is doing okay, but she does notice some significant swelling in the lower leg as well as the knee feeling stiff. She did not real the tolerate some of the medication well due to upset stomach. Shows a well-healed incision. She does have significant swelling in the knee and down the lower leg. Her motion is 2 to 114 degrees with good stability. Doppler was obtained. It did show a popliteal DVT. She will need to be on anticoagulant. We are going to go with Prashant. Discussed that with her. We then going to see her back in the office in about 2-3 weeks. We will rescanned her. Dr. Nichols agrees this evaluation and treatment plan. JO ANN Granados M.D. Electronically Signed 02/07/2016 12:10:04 Electronically Signed 02/07/2016 12:14:42 PJD/MedQ #: [id number] documented in this encounter Plan of Treatment Not on file documented as of this encounter Results * VAS RIGHT VENOUS DUPLEX LE (02/01/2016 3:10 PM LOG HANDLER) Anatomical Region Laterality Modality Ultrasound 02/01/2016 4:01 PM LOG HANDLER Narrative Procedure Note Saqib Brito MD - 02/03/2016 [facility] Vascular [place] [address], [address] [place] [address] Lower Extremity Venous Ultrasound Report Pat.Name: SHAUNA OGRDON.ID: [id number] St.Date: 02/01/2016 Exam Time: 4:01:00 PM Study Type:LE Venous Age: 1 1945,70Y Sex: FEMALE Sonogrphr: Peter Suh RVT Pat. Stat.:Outpatient ICD - 9: I82.491 Acute embolism and thrombosis of other specified deep vein of right lower extremity CPT - 4: 73664 Procedures:Lower Extremity Venous - Right Race: 2 Visit ID: [id number] SUMMARY: Acute deep vein thrombosis of the [...] this encounter Visit Diagnoses Diagnosis Right leg pain- Primary Pain in limb Aftercare following right knee joint replacement surgery Right leg pain Pain in limb Aftercare following right knee joint replacement surgery documented in this encounter Care Teams Parish Worker Relationship Specialty Start Date End Date Francisco Long MD PCP - General Internal Medicine 07/03/14 [place] [address] [place] [address] Orthopedic Surgery 04/22/15 Usha Bryan, TAO [address] [address] [place] [address] Hogshead Inspector 01/07/16 documented as of this encounter
--- OUTSIDE RECORDS SUMMARY | 2024-11-16 12:49 | XMS_ITS | Encounter Summary ---
Author Organization [facility] Address [address] [facility] [place] [address] Care Team Providers Care Clinical Data Analyst Name Role Phone Francisco Long MD Primary Care Provider Unavail able Alex Nichols MD Unavailable Usha Bryan RN Unavailable [phone] Micki Cadena MD Unavailable [phone] Encounter Details Date Type Department Care Team (Late st Contact Info) Description 01/31/2016 Therapy Visit [facility] Orthopedics [address] [address] [place] [address] [address] Social History Tobacco Use Types Packs/Day [...] on filedocumented in this encounter Care Teams Clinical Data Analyst Relationship Specialty Start Date End Date Francisco Long MD PCP - General Internal Medicine 07/03/14 [place] [address] [place] [address] Orthopedic Surgery 04/22/15 [place] [address] [address] [place] [address] Body Straightener 01/07/16 [place] [address] [address] [place] [address] Surgical Oncologist Surgical Oncology 07/05/18 documented as of this encounter
--- OUTSIDE RECORDS SUMMARY | 2024-11-16 12:50 | XMS_ITS | Encounter Summary ---
Author Organization [facility] Address [facility] [place] [address] Care Team Providers Care Control Director Name Role Phone Francisco Long MD Primary Care Provider Unavail able Alex Nichols MD Unavailable [phone] Reason for Visit * Auth/Cert (Routine) - Closed Specialty Diagnoses / Procedures Referred By Contac t Referred To Contact Diagnoses Primary localized osteoarthrosis, lower leg Procedures DC TOTAL KNEE ARTHROPLASTY Referral ID Status Reason Start Date Expiration Date Visits Re quested Visits Authorized [id number] Closed 06/03/2015 11/30/2015 1 1 Encounter Details Date Type Department Care Team (Latest Contact Info) Description 06/09/2015 9:05 AM CDT - 06/12/2015 12:27 PM CDT Hospital Encounter [address] [facility] [address] [place] [id number] [place] [id number] [id number] Surgery General Discharge Disposition: Home Health Care Svc Social History Tobacco Use Types Packs/Day Years Used Date Smoking Tobacco: Never Smokeless Tobacco: Never Alcohol Use Standard Drinks/Week Comments No 0 (1 standard drink = 0.6 oz pur e alcohol) Sex and Gender Information Value Date Recorded Sex Assigned at Not on file Gender Identity Not on file Sexual Orientation Not on file documented as of this encounter Last Filed Vital Signs Vital Sign Reading Time Taken Comments Blood Pressure 139/81 06/12/2015 7:53 AM CDT Pulse 101 06/12/2015 7:53 AM CDT Temperature 36.4 ??C (97.6 ??F) 06/12/2015 7:53 AM CD T Respiratory Rate 18 06/12/2015 7:53 AM CDT Oxygen Saturation 96% 06/12/2015 7:53 AM CDT Inhaled Oxygen Concentration - - Weight 88.5 kg (195 lb) 06/09/2015 3:00 PM CDT Height 170.2 cm (5' 7 ) 06/09/2015 3:00 PM CDT Body Mass Index 30.54 06/09/2015 3:00 PM CDT documented in this encounter Functional Status Functional Status Response Date of Assess ment Is person deaf or have serious hearing difficult y? No 06/09/2015 Is person blind or have serious difficulty seein g? No 06/09/2015 Does person have serious dif ficulty walking/climbing stairs? No 06/09/2015 Does person have difficulty dressing/bathing? No 06/09/2015 Does person have difficulty doing errands alone? No 06/09/2015 Cognitive Status Response Date of Assessm ent Does person have difficulty concentrating/remembering/making decisions? No 06/09/2015 documented as of this encounter Discharge Summaries * Tiff Ashley RN - 06/12/2015 11:07 AM CDT Physician Discharge Summary Patient name: Jolene Cedillo Admit date: 06/09/2015 Discharge date: 06/12/2015 Admitting Physician: Alex Nichols MD Attending Physician: Alex Nichols MD Discharge Physician: lAex Nichols MD Admission Diagnosis: djd knee Resolved Diagnoses None found. Discharge Diagnoses djd knee Consults Dr Diamond Diagnostic Studies See hospital course Treatments See hospital course Procedures surgery: TKR Complications of procedures if any: none Hospital Course Good progress with PT. Pain controlled with oral medications. Incisional area c/d/i. Condition at discharge: good Disposition: Home, Home health Code Status At Discharge Full Code Patient Instructions Discharge Procedure Orders Why you were hospitalized Order Specific Question Answer Comments Your discharge diagnosis is DJD (degenerative joint disease) [] No special diet needed Resume your normal home diet as tolerated. Assistive device(s) Please use a walker. Weight bearing as tolerated Slowly increase the amount of weight you put on your left leg as tolerated. Light activity Avoid any heavy activity until your follow up visit. Do not drive Until your follow up visit. Activity per Physical Therapy Continue to follow the activity instructions given to you by the Physical Therapist. Dressing changes Leave dressing in place. The dressing can be pulled back to inspect the incision if needed, but this is not necessary unless concerns exist. You may shower with the dressing on, as it is waterproof. Home Health will change the dressing one week from the date of surgery and apply a gauze dressing. The dressing will be discontinued when the long are removed. Showering and bathing -- No tub baths until cleared by Dr. Nichols. Staple care Your long will be taken out on 06/23/15 by home health. When to call your provider Call Dr. Nichols if you have questions or concerns, or for any of the following issues: -- temperature higher than 101.5 F -- pain that gets worse or does not get better after taking your pain medication(s) as directed -- bleeding from your incision -- if your incision or IV site looks infected (red, swollen, warm to the touch, or non-clear, foul-smelling drainage) Follow up with provider Order Specific Question Answer Comments Follow Up Instructions: follow up in office 3 weeks Stool softeners Take over the counter stool softener for relief of difficult bowel movements. For relief of constipation Take over the counter laxative for relief of constipation. Follow up with provider Discharge time: less than 30 minutes. Discharge Medication List START taking these medications Instructions Authorizing Provider aspirin 325 MG tablet Commonly known as: ASPIRIN Take 1 Tab by mouth 2 times daily for 42 days Take until 07/24/15 for blood clot prevention Alex Nichols oxyCODONE-acetaminophen 10-325 MG tablet Commonly known as: PERCOCET Take 0.5-1 Tabs by mouth every 6 hours as needed Alex Nichols CONTINUE taking these medications Instructions Authorizing Provider ferrous sulfate 325 (65 FE) MG tablet Take 325 mg by mouth 3 times daily with meals losartan-hydrochlorothiazide 100-12.5 MG tablet Commonly known as: HYZAAR Take 1 Tab by mouth once daily. Other - once daily [place] Supplement - Instructed to stop 10 days before surgery STOP taking these medications methotrexate 2.5 MG tablet CC: None documented in this encounter Medications at Time of Discharge Medication Sig Dispensed Refills Start Date End Date ferrous sulfate 325 (65 FE) MG tablet Take 325 mg by mouth daily with breakfast losartan-hydrochlorothi azide (HYZAAR) 100-12.5 MG tablet Take 1 Tab by mouth once daily. Other once daily [place] [employer] [place] Supplement Instructed to stop 10 days before surgery aspirin (ASPIRIN) 325 MG tablet Take 1 Tab by mouth 2 times daily for 42 days Take until 07/24/15 for blood clot prevention 06/12/2015 07/24/2015 oxyCODONE-acetaminophen (PERCOCET) 10-325 MG tablet Take 0.5-1 Tabs by mouth every 6 hours as needed 90 Tab 0 06/11/2015 07/23/2015 documented as of this encounter Progress Notes * Tiff Ashley RN - 06/12/2015 11:07 AM CDT Ortho Progress Note 06/12/2015 Awake and alert Afebrile Dressing knee c/d/i Pain controlled. Good progress with PT Discharge home F/U in office 3 weeks * Natividad Diamond MD - 06/12/2015 10:50 AM CDT Hospitalist Progress Note Admit Date: 06/09/2015 9:05 AM Hospital Day: 3 Clinical Course/ New Symptoms Patient denies chest pain, shortness of breath, abdominal pain, diarrhea,urinary problems . Voided. Nicolasa po with no nausea or vomiting . Ambulating with PT Has been in pain this AM with PT, did not take her pain pill Data Vitals: 06/11/15 2017 06/11/15 2030 06/12/15 0358 06/12/15 0753 BP: 136/69 137/60 139/81 Pulse: 95 97 101 Temp: 100.2 ??F 99.3 ??F 99.2 ??F 97.6 ??F Resp: Weight: SpO2: 96% 95% 96% Temp (30hrs) Max:100.2 ??F Intake/Output Summary (Last 24 hours) at 06/12/15 1050 Last data filed at 06/12/15 0403 Gross per 24 hour Intake 860 ml Output 500 ml Net 360 ml My review of labs, imaging, notes and other tests is significant for Recent Labs Component Name 06/11/15 0509 06/10/15 0113 HGB 10.9* 11.6* HCT 33.3* 35.1* MEDICATIONS FOR CURRENT ENCOUNTER: SCHEDULED MEDICATIONS: And 0.9% NaCl injection 3 mL, Intracatheter, q8h aspirin (ASPIRIN) tablet 325 mg, Oral, BID celecoxib (CeleBREX) capsule 400 mg, Oral, QDAY hydrochlorothiazide (HYDRODIURIL) tablet 12.5 mg, Oral, QDAY iron polysaccharides (NIFEREX 150) capsule 150 mg, Oral, QDAY losartan (COZAAR) tablet 100 mg, Oral, QDAY pneumococcal vaccine polyvalent 23 (PNU-IMUNE;PNEUMOVAX) injection 0.5 mL, Intramuscular, Immunization - Once ?? senna-docusate (SENOKOT-S) tablet 1 Tab, Oral, BID ?? CONTINUOUS MEDICATIONS: PRN MEDICATIONS: Or Or Or acetaminophen (TYLENOL) tablet 650 mg, Oral, q4h PRN bisACODYL (DULCOLAX) suppository 10 mg, Rectal, QDAY PRN bisACODYL EC (DULCOLAX) tablet 5 mg, Oral, QDAY PRN diphenhydrAMINE (BENADRYL) capsule 25-50 mg, Oral, q8h PRN famotidine (PEPCID) tablet 20 mg, Oral, BID PRN hydrocodone-acetaminophen (NORCO) 10-325 MG tablet 1 Tab, Oral, q4h PRN hydrocodone-acetaminophen (NORCO) 5-325 MG tablet 1 Tab, Oral, q4h PRN magnesium hydroxide (MILK OF MAGNESIA) suspension 30 mL, Oral, PRN naloxone (NARCAN) injection 0.2 mg, Intravenous, PRN ondansetron (ZOFRAN) injection 4-8 mg, Intravenous, q6h PRN oxyCODONE-acetaminophen (PERCOCET) 10-325 MG tablet 1 Tab, Oral, q4h PRN oxyCODONE-acetaminophen (PERCOCET) 5-325 MG tablet 1 Tab, Oral, q4h PRN sodium phosphate rectal (FLEET SALINE) enema 1 Enema, Rectal, PRN ?? zolpidem (AMBIEN) tablet 5 mg, Oral, AT BEDTIME PRN ?? 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 Post-op Day Hospital Day: 3 Continue PT per protocol . Encourage incentive spirometry at bedside. Follow post op orders. DVT prophylaxis as per surgeon Low grade fever likley related to atelectasis 2. Hypertension - resume ARB and hydrochlorothiazide - monitor blood pressure and adjust medications as needed 3. History of rheumatoid arthritis - hold methotrexate for now - followup with data engineer as an outpatient 4. Chronic anemia: Monitor hemoglobin postop- has been stable resume oral iron supplements * Taniya Juarez, PT - 06/12/2015 9:57 AM CDT Physical Therapy Treatment Summary Pt consents to therapy. Subjective: Pt states she is feeling okay today, ready to go home. Patient's Goal for the Day: to go home Pt performed 15 reps L LE exercise per TKA protocol, tolerated well. Instructed pt and her in icing the L knee frequently and elevating the L LE to help decrease pain and swelling. Pain Assessment: Pain Rating Score #: 3 Pain Location : Knee Pain Orientation: Left Bed Mobility: Supine to Sit: Complete [place] Sit to Supine: Complete [place] Transfers: Sit to Stand: Modified [place] Stand to Sit: Modified [place] Mobility: Distance Ambulated: 220 FEET Ambulation: Assistive Device: Gait Belt;Walker-2 Wheeled Ambulation: Level of Assistance: Modified [place] Ambulation: Gait Deviations: [place] - Decreased;Step Length - Decreased Weight Bearing Status-LLE: Weight Bearing as Tolerated Stairs: Number: 4 Stairs: Assistive Device: Gait Belt Stairs: Use of Rails: Both Stairs: Level of Assistance: Modified Independent Curb: Assistive Device: Gait Belt;Walker-2 Wheeled Curb: Level of Assistance: Stand By Assist Balance: Standing - Dynamic: Good;With Both Upper Extremity's Support Standing - Static: Good -;With Both Upper Extremity's Support Knee ROM ROM Terminal Knee Extension: 10 ROM Knee Flexion: 88 Recommendations: Recommend continued PT to address mobility and strengthening needs upon discharge from acute care. Patient left in reach of phone and call light. Please refer to the PT Treatment Report in the FiledFlowsheet for more detailed information. If this is the last PT visit, this note serves as the discharge summary. Taniya Juarez PT, DPT * Taniya Juarez PT - 06/12/2015 9:47 AM CDT Problem: Therapy - Total Knee Arthroplasty Goal: STG - Patient will ambulate 220??? mod I with appropriate AD Outcome: Goal Met Date Met: 06/12/15 Goal: STG - Patient will negotiate ___ step(s). 2-4 steps mod I Outcome: Goal Met Date Met: 06/12/15 Goal: STG - Patient will tolerate ____ repetitions of exercises. 10-20 independent Outcome: Goal Met Date Met: 06/12/15 Goal: TH STG - Able to move from supine to sitting. Mod I Outcome: Goal Met Date Met: 06/12/15 Goal: TH STG - Able to transfer sit to stand. Mod I Outcome: Goal Met Date Met: 06/12/15 Goal: STG - Improve knee ROM from ____ to ____ degrees. 50 degrees flexion to 70 degrees AROM -15 degrees extension to -5 degrees AROM Outcome: Variance - See Flowsheet Documentation Variance: Slow or Unresponsive to Therapy Goal: STG - Improve Quad strength to ____. 4/5 Outcome: Goal Met Date Met: 06/12/15 * Portia Patel RN - 06/12/2015 6:07 AM CDT Shift Highlight: Jolene is alert and oriented x4.Standby assist. Voiding without difficulty. Tolerating diet. Pain controlled with PRN medication and ice. Dressing clean, dry, intact. No complaints of nausea, SOB, or chest pain. Vital signs stable. Will continue to monitor. * Portia Patel RN - 06/12/2015 12:35 AM CDT Problem: Incision Care Goal: Incision remains intact with edges well approximated Outcome: Ongoing Observed Jolene's dressing; it is clean, dry, intact. Problem: Infection Goal: Signs and symptoms of infections are decreased or avoided Outcome: Ongoing Observed Jolene's dressingl it is clean, dry, intact. No signs/symptoms of infection. Problem: Pain/Discomfort Goal: Patient exhibits reduced pain/discomfort as evidenced by pain scores Outcome: Ongoing Jolene reports decreased pain with intervention. Pain assessed every 4 hours and as needed. Problem: Fall Risk Goal: Patient will remain free of falls Outcome: Ongoing Reminded Jolene to use call light for assistance. Toileting offered with hourly checks. * Natividad Diamond MD - 06/11/2015 4:38 PM CDT Hospitalist Progress Note Admit Date: 06/09/2015 9:05 AM Hospital Day: 2 Clinical Course/ New Symptoms Patient denies chest pain, shortness of breath, abdominal pain, diarrhea,urinary problems . Voided. Nicolasa po with no nausea or vomiting . Ambulating with PT Data Vitals: 06/09/15 1500 06/11/15 0522 06/11/15 0932 06/11/15 1530 BP: 127/58 158/80 123/49 Pulse: 87 98 85 Temp: 98.2 ??F 97.6 ??F 98 ??F Resp: 18 Weight: 88.451 kg (195 lb) SpO2: 93% 95% 94% Temp (30hrs) Max:98.5 ??F Intake/Output Summary (Last 24 hours) at 06/11/15 1638 Last data filed at 06/11/15 1250 Gross per 24 hour Intake 930 ml Output 1050 ml Net -120 ml My review of labs, imaging, notes and other tests is significant for Recent Labs Component Name 06/11/15 0504 06/10/15 0113 HGB 10.9* 11.6* HCT 33.3* 35.1* MEDICATIONS FOR CURRENT ENCOUNTER: SCHEDULED MEDICATIONS: And 0.9% NaCl injection 3 mL, Intracatheter, q8h aspirin (ASPIRIN) tablet 325 mg, Oral, BID celecoxib (CeleBREX) capsule 400 mg, Oral, QDAY hydrochlorothiazide (HYDRODIURIL) tablet 12.5 mg, Oral, QDAY iron polysaccharides (NIFEREX 150) capsule 150 mg, Oral, QDAY losartan (COZAAR) tablet 100 mg, Oral, QDAY pneumococcal vaccine polyvalent 23 (PNU-IMUNE;PNEUMOVAX) injection 0.5 mL, Intramuscular, Immunization - Once senna-docusate (SENOKOT-S) tablet 1 Tab, Oral, BID ?? [] oxyCODONE CR 12hr (OxyCONTIN) tablet 10 mg, Oral, q12h ?? CONTINUOUS MEDICATIONS: PRN MEDICATIONS: Or Or Or acetaminophen (TYLENOL) tablet 650 mg, Oral, q4h PRN bisACODYL (DULCOLAX) suppository 10 mg, Rectal, QDAY PRN bisACODYL EC (DULCOLAX) tablet 5 mg, Oral, QDAY PRN diphenhydrAMINE (BENADRYL) capsule 25-50 mg, Oral, q8h PRN famotidine (PEPCID) tablet 20 mg, Oral, BID PRN hydrocodone-acetaminophen (NORCO) 10-325 MG tablet 1 Tab, Oral, q4h PRN hydrocodone-acetaminophen (NORCO) 5-325 MG tablet 1 Tab, Oral, q4h PRN magnesium hydroxide (MILK OF MAGNESIA) suspension 30 mL, Oral, PRN naloxone (NARCAN) injection 0.2 mg, Intravenous, PRN ondansetron (ZOFRAN) injection 4-8 mg, Intravenous, q6h PRN oxyCODONE-acetaminophen (PERCOCET) 10-325 MG tablet 1 Tab, Oral, q4h PRN oxyCODONE-acetaminophen (PERCOCET) 5-325 MG tablet 1 Tab, Oral, q4h PRN sodium phosphate rectal (FLEET SALINE) enema 1 Enema, Rectal, PRN ?? zolpidem (AMBIEN) tablet 5 mg, Oral, AT BEDTIME PRN ?? 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 Post-op Day Hospital Day: 2 Continue PT per protocol . Encourage incentive spirometry at bedside. Follow post op orders. DVT prophylaxis as per surgeon 2. Hypertension - resume ARB and hydrochlorothiazide - monitor blood pressure and adjust medications as needed 3. History of rheumatoid arthritis - hold methotrexate for now - followup with data engineer as an outpatient 4. Chronic anemia: Monitor hemoglobin postop- has been stable resume oral iron supplements * Rivka eCnteno, PT - 06/11/2015 3:28 PM CDT Patient was seen BID this date for physical therapy. Pt consented to therapy. Reports pain 02/02. Transfers: Supine to/from sit with SB assistance Sit to/from stand with SB assistance Ambulation: Patient ambulated 220 feet with 2WW and supervision Patient educated in safety precautions. Patient remained in reach of call light. Rivka Centeno PT, DPT x [phone] * Alessia Stanton RN - 06/11/2015 2:59 PM CDT Shift highlights: Met with physical therapy today. Patient is up with standby assist. Dressing is clean, dry, and intact. Pain controlled by Percocet 5. Ice applied to knee when needed. Denies any chest pain, SOA, numbness/tingling. Encouraged to use IS. Voiding in bathroom w/o difficulty. Will continue to monitor. * Chitra Matos RN - 06/11/2015 12:21 PM CDT Ortho POD # 2 Awake, Alert Afebrile Hgb: 10.9 Up in chair Nausea/ Vomiting: none Incisional Area- silver dressing intact No calf pain, wiggles toes Painful, feels like norco not helping- will try percocet Con't PT- WBAT Anticipate d/c to home tomorrow * Rivka Centeno, PT - 06/11/2015 11:11 AM CDT PT Treatment Summary Pt consents to therapy. Pt upright in chair upon entering room. Pt ambulates with very slow cadencewith VC to maintain upright posture as well as for proper heel strike. Pt negotiates 4 steps with SBA with minimal sequencing cues. Pt requires rest breaks between sets of exercise as well as after gait/stair trials. Pt performs B LE supine strengthening exercises with VC for proper performance perflow sheet. Pt upright in chair at end of session. Subjective: I feel better today. Patient's Goal for the Day: To go home Pain Assessment: Pain Rating Score #: 3 Pain Location : Knee Pain Orientation: Left Bed Mobility: Supine to Sit: Activity Does Not Occur Sit to Supine: Activity Does Not Occur Transfers: Sit to Stand: Stand By Assist Stand to Sit: Stand By Assist Chair to Bed: Stand By Assist Bed to Chair: Stand By Assist Toilet Transfers: Stand By Assist Mobility: Distance Ambulated: 120 FEET (x 2) Ambulation: Assistive Device: Walker-2 Wheeled;Gait Belt Ambulation: Level of Assistance: Stand By Assist Ambulation: Gait Deviations: [place]alg[place];Increased Trunk Flexion;Step Length - Decreased;Stance Time -Decreased;Heel Strike - Decreased Weight Bearing Status-LLE: Weight Bearing as Tolerated Stairs: Number: 4 Stairs: Assistive Device: Gait Belt Stairs: Use of Rails: Both Stairs: Level of Assistance: Stand By Assist Balance: Sitting - Dynamic: Good Sitting - Static: Good Standing - Dynamic: Good -;With Both Upper Extremity's Support Standing - Static: Good -;With Both Upper Extremity's Support Knee ROM ROM Terminal Knee Extension: -11 ROM Knee Flexion: 62 Recommendations: Continue acute PT per POC to improve functional mobility prior to D/C. Recommend continued PT/OT toaddress mobility and strengthening needs upon discharge from acute care. Patient left in reach of phone and call light. Please refer to the PT Treatment Report in the FiledFlowsheet for more detailed information. If this is the last PT visit, this note serves as the discharge summary. Rivka Centeno PT, DPT x [phone] * Ludmila Bright RN - 06/11/2015 9:54 AM CDT CM reviewed chart. Plan is for patient to be discharged home with [facility] tomorrow, pending physicianapproval. Patient's family will be providing transportation home. CM will continue following for any discharge needs. Ludmila Bright RN, BSN manager housekeeping [facility] [phone] [phone] * Alison Maloney RN - 06/11/2015 7:26 AM CDT Problem: Incision Care Goal: Incision remains intact with edges well approximated Outcome: Ongoing Incision covered with mepilex dressing. Problem: Infection Goal: Signs and symptoms of infections are decreased or avoided Outcome: Ongoing Monitored for signs of infection. Problem: Pain/Discomfort Goal: Patient exhibits reduced pain/discomfort as evidenced by pain scores Outcome: Ongoing Pain medication given as needed. Problem: Fall Risk Goal: Patient will remain free of falls Outcome: Ongoing Walker used while patient out of bed. * Paual Zavala RN - 06/11/2015 6:05 AM CDT Shift Highlight: Jolene is alert and oriented x4. Up with SBA; voiding without difficulty. Pain controlled with [place] 10. Denies chest pain, SOB, and nausea. Encouraged patient to use incentive spirometer. Silver mepilex dressing to surgical knee clean, dry, and intact. Vital signs stable. Will continue to monitor. Paula Zavala RN 06/11/2015 6:05 AM * Paula Zavala RN - 06/10/2015 8:49 PM CDT Problem: Incision Care Goal: Incision remains intact with edges well approximated Outcome: Ongoing Dressing covering incision clean, dry, and intact. Problem: Infection Goal: Signs and symptoms of infections are decreased or avoided Outcome: Ongoing Shows no signs or symptoms of infection at this time. Problem: Pain/Discomfort Goal: Patient exhibits reduced pain/discomfort as evidenced by pain scores Outcome: Ongoing Jolene uses 0-10 pain scale appropriately and states relief. Problem: Fall Risk Goal: Patient will remain free of falls Outcome: Ongoing Jolene uses call light when needing assistance, call light within reach, SBA with 2 wheeled walker * Ludmila Bright RN - 06/10/2015 5:34 PM CDT Case Management Initial Assessment Case Management screen completed, welcome letter given. Met with patient Lives with: +Spouse Family Support (name and phone): Extended Emergency Contact Information Primary Emergency Contact: MarloneugeneDouglas [facility] Mobile Relation: Spouse Anticipated Discharge Date: Anticipated Discharge Date: 06/12/15 Anticipated level of care / disposition at discharge: *Home;Home Health Care Prior Level of Functioning: IPTA Equipment at Home: Equipment At Home: None Additional Equipment needed at home (does not have at home now): List DME pt. requires but does not have.: Walker-2 Wheeled PCP: Francisco REAL Referral: no If patient requires HHC at discharge, he/she requests: Proposed Home Health Agency: *[facility] Home Care Intake Transportation at discharge: Family Comments: CM will continue following. Ludmila Bright RN, BSN manager housekeeping [facility] [phone] * Alessia Stanton - 06/10/2015 5:20 PM CDT Shift highlights: Patient is alert and oriented x 4. Up with one assist. Pain controlled by [place] 10 q4hrs. Denies any chest pain, SOA, numbness/tingling. Dressing is clean, dry, and intact. Voiding w/o difficulty. VS remained stable for shift. Will continue to monitor. * Rivka Centeno PT - 06/10/2015 1:57 PM CDT Patient was seen BID this date for physical therapy. Pt consented to therapy. Pt is wheeled back toroom post treatment. Pt requires rest breaks between sets and VC for proper performance. Reports pain 5/10. Transfers: Supine to/from sit with minimal assistance Sit to/from stand with CG assistance Ambulation: Patient ambulated 120 feet with 2WW device and CG assistance Steps/Curb: Instructed patient to ascend/descend 4 steps with B rails with CG assistance. Pt requires VC for LEsequencing. Exercise: Patient performed 10-20 reps of TKA HEP. Patient educated in HEP and safety precautions during transfers using AD. Patient remained in reach of call light. Rivka Centeno PT, DPT x [phone] * Alessia Stanton - 06/10/2015 12:32 PM CDT Problem: Incision Care Goal: Incision remains intact with edges well approximated Outcome: Ongoing Will observe dressing at least once a shift. Dressing will remain clean, dry, and intact. Problem: Infection Goal: Signs and symptoms of infections are decreased or avoided Outcome: Ongoing Will keep incision site clean, dry, and intact. Will monitor for any s/s of infection. Problem: Pain/Discomfort Goal: Patient exhibits reduced pain/discomfort as evidenced by pain scores Outcome: Ongoing Will continue to assess/reassess pts pain level. Will keep at level that is tolerable to pt. Problem: Fall Risk Goal: Patient will remain free of falls Outcome: Ongoing Fall precautions in place. Bed in lowest position, 2/4 side rails up, no slip socks on, call light in reach. Will use assistive devices when needed. * Natividad Diamond MD - 06/10/2015 11:52 AM CDT Hospitalist Progress Note Admit Date: 06/09/2015 9:05 AM Hospital Day: 1 Clinical Course/ New Symptoms Patient denies chest pain, shortness of breath, abdominal pain, diarrhea,urinary problems . Voided. Nicolasa po with no nausea or vomiting . Ambulating with PT Data Vitals: 06/09/15 2352 06/10/15 0444 06/10/15 0804 06/10/15 0913 BP: 121/70 122/66 125/72 126/63 Pulse: 75 73 72 Temp: 99.3 ??F 97.8 ??F 98.7 ??F Resp: Weight: SpO2: 97% 94% 93% Temp (30hrs) Max:99.3 ??F Intake/Output Summary (Last 24 hours) at 06/10/15 1152 Last data filed at 06/10/15 0920 Gross per 24 hour Intake 4151.22 ml Output 828 ml Net 3323.22 ml My review of labs, imaging, notes and other tests is significant for Recent Labs Component Name 06/10/15 0113 HGB 11.6* HCT 35.1* MEDICATIONS FOR CURRENT ENCOUNTER: ?? SCHEDULED MEDICATIONS: ?? And ?? 0.9% NaCl injection 3 mL, Intracatheter, q8h ?? aspirin (ASPIRIN) tablet 325 mg, Oral, BID ?? celecoxib (CeleBREX) capsule 400 mg, Oral, QDAY ?? hydrochlorothiazide (HYDRODIURIL) tablet 12.5 mg, Oral, QDAY ?? iron polysaccharides (NIFEREX 150) capsule 150 mg, Oral, QDAY ?? losartan (COZAAR) tablet 100 mg, Oral, QDAY ?? ondansetron (ZOFRAN) injection 4 mg, Intravenous, q6h ?? oxyCODONE CR 12hr (OxyCONTIN) tablet 10 mg, Oral, q12h ?? senna-docusate (SENOKOT-S) tablet 1 Tab, Oral, BID ?? [COMPLETED] ceFAZolin (ANCEF) IVPB 1 g, Intravenous, q8h ?? [COMPLETED] ceFAZolin (ANCEF) IVPB 1 g, Intravenous, q8h ?? [COMPLETED] tranexamic acid (CYKLOKAPRON) bolus 1,000 mg, Intravenous, Once ?? [START ON 06/11/2015] pneumococcal vaccine polyvalent 23 (PNU-IMUNE;PNEUMOVAX) injection 0.5 mL, Intramuscular, Immunization - Once ?? CONTINUOUS MEDICATIONS: ?? PRN MEDICATIONS: ?? Or ?? Or ?? Or ?? acetaminophen (TYLENOL) tablet 650 mg, Oral, q4h PRN ?? bisACODYL (DULCOLAX) suppository 10 mg, Rectal, QDAY PRN ?? bisACODYL EC (DULCOLAX) tablet 5 mg, Oral, QDAY PRN ?? diphenhydrAMINE (BENADRYL) capsule 25-50 mg, Oral, q8h PRN ?? famotidine (PEPCID) tablet 20 mg, Oral, BID PRN ?? hydrocodone-acetaminophen (NORCO) 10-325 MG tablet 1 Tab, Oral, q4h PRN ?? hydrocodone-acetaminophen (NORCO) 5-325 MG tablet 1 Tab, Oral, q4h PRN ?? ketorolac (TORADOL) injection 15 mg, Intravenous, q6h PRN ?? magnesium hydroxide (MILK OF MAGNESIA) suspension 30 mL, Oral, PRN ?? naloxone (NARCAN) injection 0.2 mg, Intravenous, PRN ?? ondansetron (ZOFRAN) injection 4-8 mg, Intravenous, q6h PRN ?? sodium phosphate rectal (FLEET SALINE) enema 1 Enema, Rectal, PRN ?? zolpidem (AMBIEN) tablet 5 mg, Oral, AT BEDTIME PRN ?? 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 Post-op Day Hospital Day: 1 Continue PT per protocol . Encourage incentive spirometry at bedside. Follow post op orders. DVT prophylaxis as per surgeon 2. Acute Anemia. Secondary to expected blood loss. Monitor HH. No indication for transfusion at this time. 2. Hypertension - resume ARB and hydrochlorothiazide if blood pressure is elevated - monitor blood pressure and adjust medications as needed 3. History of rheumatoid arthritis - hold methotrexate for now - followup with data engineer as an outpatient 4. Chronic anemia: Monitor hemoglobin postop- has been stable resume oral iron supplements * Tiff Ashley RN - 06/10/2015 11:47 AM CDT Ortho Progress Note 06/10/2015 Awake and alert. Afebrile. Pain controlled. Dressing knee c/d/i. Continue physical therapy. Up in chair Recent Labs Component Name 06/10/15 0113 HGB 11.6* HCT 35.1* * Rivka Centeno, PT - 06/10/2015 8:45 AM CDT PT Eval complete. Pt supine in bed upon entering room. Pt requires min A for L LE support to sit EOB. Pt is educated on WB status and POC. Pt ambulates with slow belgica with antalgic pattern requiring VC to increase stance time. Pt supine in bed at end of session; spouse present and ice pack intact. Knee flexion AROM 50 degrees Knee extension AROM -15 degrees Subjective: Pt consents to treatment Home Situation: Residence: Private Residence Lives with:: Spouse Steps to Enter: 2 Ramp: No Home Structure: One Story Equipment At Home: None Prior Level of Functioning: Mobility: Ambulate-In Community;Ambulate-In Home ;Independent;Without Assistive Device;Driving Fallen Within 6 Mos: No Have Help at Home: Yes, there is help at home now Activity at Home: Active Physical Therapy Evaluation Summary for today: Pt educated in PT plan of care, fall precautions, and benefits of OOB activity. Pain Assessment: Pain Rating Score #: 2 Pain Location : Knee Pain Orientation: Left Bed Mobility: Supine to Sit: Minimal Assistance Sit to Supine: Minimal Assistance Transfers: Sit to Stand: Contact Guard Assist Stand to Sit: Contact Guard Assist Mobility: Distance Ambulated: 60 FEET Ambulation: Assistive Device: Walker-2 Wheeled;Gait Belt Ambulation: Level of Assistance: Contact Guard Assist Ambulation: Gait Deviations: Antalgic;Increased Trunk Flexion;Heel Strike - Decreased;Step Length -Decreased;Stance Time - Decreased Weight Bearing Status-LLE: Weight Bearing as Tolerated Balance: Sitting - Static: Good Sitting - Dynamic: Good Standing - Static: Good;With Both Upper Extremity's Support Standing - Dynamic: Good -;With Both Upper Extremity's Support PT Assessment: Problem list: Decreased strength, decreased balance, decreased endurance, decreased ROM Functional limitations: Decreased independence with ambulation/transfers, decreased safety with functional mobility Rationale for therapy: Patient will benefit from PT to address the above issues. Patient/family stated goal: be able to walk good without pain Please refer to Filed Flowsheet PT Evaluation for further details. Patient left in reach of call light and phone. Recommendations: Continue acute PT per POC to improve functional mobility prior to D/C. Recommend continued PT/OT toaddress mobility and strengthening needs upon discharge from acute care. Rivka Centeno, PT, DPT x [phone] If this is the last PT visit, this note serves as the discharge summary. * Paula Zavala RN - 06/10/2015 5:35 AM CDT Shift Highlight: Jolene is alert and oriented x4. Up with CGA; voiding without difficulty althoughincontinent at times. 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 Denies chest pain, SOB, and nausea. Encouraged patient to use incentive spirometer. Silver mepilex dressing to surgical knee clean, dry, and intact. Hemovac drain removed. Vital signs stable. Family at bedside, will continue to monitor. Paula Zavala RN 06/10/2015 5:35 AM * Paula Zavala RN - 06/09/2015 10:24 PM CDT Problem: Incision Care Goal: Incision remains intact with edges well approximated Outcome: Ongoing Dressing covering incision clean, dry, and intact. Problem: Infection Goal: Signs and symptoms of infections are decreased or avoided Outcome: Ongoing No signs or symptoms of infection at this time Problem: Pain/Discomfort Goal: Patient exhibits reduced pain/discomfort as evidenced by pain scores Outcome: Ongoing Jolene uses 0-10 pain scale appropriately and states relief. Problem: Fall Risk Goal: Patient will remain free of falls Outcome: Ongoing Jolene uses call light when needing assistance, call light within reach, bed alarm on, family at bedside * Yennifer Rayo RN - 06/09/2015 7:13 PM CDT Report left knee surgery today ;pt stable and doing well. Surgical mckayla dressing and hmv d/i and patent. toradol given for breakthrough pain pt request to use the ms informatica architect less inorder to sleep. I/o good. Wearing depends from home. Not oob this pm due to slight numbness remains in the left ft. Spouse spending the night. Thanks tao moser * Yennifer Raoy RN - 06/09/2015 6:47 PM CDT Problem: Fall Risk Goal: Patient will remain free of falls Outcome: Ongoing Hourly rounds * Fadia Marrero, PharmD - 06/09/2015 10:35 AM CDT .[facility] Pharmacy Clinical Services Admission Medication Review Jolene Cedillo is a 69 y.o. female I have reviewed patient's home medication list with the patient's pharmacy. The medication list review was before the physician has seen or acted upon, and is now ready for re-review/order by physician. Medication List Revisions The following medications were modified to correct drug/dose entry for inpatient use: 6 tablets every Sunday of the 2.5mg Thank you for the opportunity to take part of Jolene Cedillo's care. Fadia Marrero, LUANNED * Cornelio Alba PA-C - 06/08/2015 5:[address] [facility] PRE-OPERATIVE HISTORY AND PHYSICAL PATIENT NAME: Jolene Cedillo : 1945 CSN: [id number] HISTORY OF PRESENT ILLNESS: This is a 69 y.o. year-old female seen at the office regarding her leftknee. The left knee has been symptomatic for over several years. 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 Interfering with going up and down steps and difficulty gettingin and out of a chair. Also failing home exercise program. We are going to proceed ahead with a left knee replacement. We have discussed surgical procedure, risks, complications, and postoperative expectations associated with this procedure. PAST MEDICAL HISTORY: Past Medical History Diagnosis Date ??? HTN (hypertension) ??? Anemia, unspecified Anemia ??? Rheumatoid arthritis(714.0) Rheumatoid Arthritis PAST SURGICAL HISTORY: Past Surgical History Procedure Laterality Date ??? Knee arthroscopy bilateral HOME MEDICATIONS: Prior to Admission medications Medication Sig Start Date End Date Taking? Authorizing Provider ferrous sulfate 325 (65 FE) MG tablet Take 325 mg by mouth 3 times daily with meals Annabelle Dumont MD Other once daily [employer] [place] Supplement Instructed to stop 10 days before surgery Annabelle Dumont MD losartan-hydrochlorothiazide (HYZAAR) 100-12.5 MG tablet Take 1 Tab by mouth once daily. MD Mayank methotrexate 2.5 MG tablet Take 5 mg by mouth every Sunday, Sunday & Sunday Annabelle Dumont MD No current facility-administered medications for this encounter. Current Outpatient Prescriptions Medication Sig Dispense Refill ??? ferrous sulfate 325 (65 FE) MG tablet Take 325 mg by mouth 3 times daily with meals ??? Other once daily [employer] [place] Supplement Instructed to stop 10 days before surgery ??? losartan-hydrochlorothiazide (HYZAAR) 100-12.5 MG tablet Take 1 Tab by mouth once daily. ? ? methotrexate 2.5 MG tablet Take 5 mg by mouth every Sunday, Sunday & Sunday ALLERGIES: No Known Allergies PHYSICAL EXAMINATION: HEENT: Head normocephalic and atraumatic. Eyes, PERRLA. EOMs normal. NECK: Supple. Negative adenopathy. No bruits. LUNGS: Clear. HEART: Normal S1 and S2. ABDOMEN: Soft and nondistended. Positive bowel sounds in all quadrants. EXTREMITIES: Neurovascularly intact distally. Equal bilaterally in upper and lower extremities. MUSCULOSKELETAL: Good range of motion of the hips. Left knee, varus knee with medial and lateral joint line crepitation, clicking, mid flexion instability with motion of 4-112. NEUROLOGICAL: Within normal limits. MENTAL: Within normal limits. DIAGNOSTIC DATA: Radiographs of the left knee, end-stage tricompartmental DJD of the left knee hqiybuzl-op-[id number] degenerative changes along medial joint line/varus. IMPRESSION: End stage degenerative joint disease of the left knee, failing conservative treatment of corticosteroid injections, anti-inflammatories, decline in overall activity as well as failing home exercise program. PLAN: We are going to proceed ahead with a left total knee replacement. We have discussed with the patient surgical procedure, risks, complications, and postoperative expectations associated with this. Cornelio Alba PA-C documented in this encounter Consult Notes * Doris Gasca LPN - 06/12/2015 12:22 PM CDTAssociated Order(s): IP CONSULT TO HOME CARE Thank you for the referral. NURSES AND CO TO FOLLOW Doris Gasca L.P.N. ADMISSION COORDINATOR [facility] * Natividad Diamond MD - 06/09/2015 3:32 PM CDT Initial Hospitalist Consult Note Date of Consult: 06/09/2015 Patient's Primary Care Physician: Francisco Long Physician Requesting Consult: Alex Nichols MD Reason for Consultation: Evaluation of patient's medical problems, which include hypertension and Rheumatoid arthritis Name: Jolene Cedillo Age: 69 y.o. Sex: female Chief Complaint/History of Present Illness Patient is , a 69 y.o. female, who has been admitted [facility] after a successfulLeft TKA under Spinal anaesthesia. Pt's left knee has been symptomatic for a long time , aggravated with activity and patient was reportedly failing conservative management. Pt is awake and alert , denies any CP, SOB, palpitations . Has no cough, hemoptysis, Denies nausea, vomiting ,abdominal pain, Has no fever or chills, rash , flank pain , Has no lightheadedness, dizziness. denies headache, blurred vision /diplopia, photophobia or tingling/numbness . Past Medical History Diagnosis Date ??? HTN (hypertension) ??? Anemia, unspecified Anemia ??? Rheumatoid arthritis(714.0) Rheumatoid Arthritis Past Surgical History Procedure Laterality Date ??? Knee arthroscopy bilateral No family history on file. Social History Occupational History ??? Not on file. Social History Main Topics ??? Smoking status: Never Smoker ??? Smokeless tobacco: Never Used ??? Alcohol Use: No ??? Drug Use: No ??? Sexual Activity: Not on file Prescriptions prior to admission Medication Sig Dispense Refill ??? ferrous sulfate 325 (65 FE) MG tablet Take 325 mg by mouth 3 times daily with meals ??? losartan-hydrochlorothiazide (HYZAAR) 100-12.5 MG tablet Take 1 Tab by mouth once daily. ??? Other once daily [employer] [place] Supplement Instructed to stop 10 days before surgery ??? methotrexate 2.5 MG tablet Take 15 mg by mouth every 7 days Sunday No Known Allergies Review of Systems A 14 point review of systems was reviewed and was negative except as described in HPI. 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 Alert , No facial assymetry, clear speech. No focal motor deficts Psych: has normal mood and affect SKIN: No rash,incision + Data I have reviewed the patient's labs and the review is significant for: Assessment and Plan Records available in chart ( paper and electronic) were reviewed. Home medications were reviewed 1. Post-op Day Hospital Day: 0 Follow post op orders. Initiate PT per protocol DVT prophylaxis to continue with SCD and chemoprophylaxis per surgeon preference. GI prophylaxis to continue with H2 blockers or Proton Pump inhibitors Encourage incentive spirometry at bedside. 2. Hypertension - resume ARB and hydrochlorothiazide if blood pressure is elevated - monitor blood pressure and adjust medications as needed 3. History of rheumatoid arthritis - hold methotrexate for now - followup with data engineer as an outpatient 4. Chronic anemia: Monitor hemoglobin postop resume oral iron supplements Treatment plan discussed with patient at bedside. All questions were answered. Orders placed in chart. CC: Francisco Long, Alex Nichols MD documented in this encounter OR Notes * Operative - Alex Nichols MD - 06/09/2015 12:19 PM CDT Operative Report Left Total Knee PATIENT: Jolene Cedillo : 1945 ADMIT DATE: 06/09/2015 DATE OF SURGERY: 06/09/2015 PHYSICIAN: Alex Nichols MD SURGEON: Alex Nichols MD QA LEAD: Alix Edwards PA-C The skilled assistance of the JO ANN was necessary for the effective and successful completion of this case. The physician study assistant was essential for the proper positioning, manipulation of instruments, proper exposure, manipulation of tissue and wound closure. PREOPERATIVE DIAGNOSIS: Degenerative joint disease, left knee. POSTOPERATIVE DIAGNOSIS: Degenerative joint disease, left knee. PROCEDURE: Left Total Knee Arthroplasty with the Mini-Subvastus Approach. TYPE OF ANESTHESIA: Spinal DESCRIPTION OF PROCEDURE: The patient was brought into the operating room and placed under spinal anesthetic. The left lower extremity was placed under tourniquet control, prepped and draped in a standard fashion. An anterior incision was created from the superior pole of the patella down to the tibial tubercle.This was taken down to the extensor mechanism. A mini- subvastus approach was used. The patella was slid laterally and a 9 mm drill was used to obtain access into the distal femur and proximal tibia. A 5 degree valgus cut was created off the distal femur and this was sized to 70. The anterior, posterior chamfer cuts were created. The intercondylar box cut was created. Attention was placed on the proximal tibia. An intermedullary alignment khushbu was used to make a 90-90 cut off the superior aspect of the tibia. This was sized to a 75 component. A trial reduction showed excellent stability with a 10 poly trial. The patella reamed down for a XS patellar component. The tibia was finished off for an I-beam component. The bony cut surfaces were pulsatile evacuated. The cement was mixed and digitally pressurizedinto the tibia, femur and patella. As each component was placed, excess bone cement was removed. The knee was brought into full extension with a 10 poly trial to allow the cement to cure under compression. The knee was copiously irrigated. Electrocautery was used for hemostasis. A combination of Marcaine, epinephrine and morphine was injected outside the capsule. The final 10 poly was selected, placed and locked into position. The knee was taken through a stable range of motion. The extensor mec hanism was closed over a reinfusion drain with #1 Vicryl. The skin was reapproximated with 2-0 Vicryl and closed with long. A bulky dressing and Cryo-Cuff were applied. The patient was awakened and taken to recovery in stable condition. Drains: Reinfusion Drain EBL: Minimal Specimens Removed: None Disposition: PACU Complications: None Alex Nichols MD documented in this encounter Plan of Treatment Not on file documented as of this encounter Procedures Procedure Name Priority Date/Time Associated Diagnosis Comments LAB RESULTS ORDER 06/16/2015 5:0 3 AM CDT CARDIAC EKG ORDER 06/16/2015 5:0 3 AM CDT HGB HCT PANEL AM Draw 06/11/2015 5:09 AM CDT HGB HCT PANEL AM Draw 06/10/2015 1:13 AM CDT ARTHROPLASTY TOTAL KNEE 06/09/2015 6:05 PM CDT Osteoarthrosis, unspecified whether generalized or localized, lower leg Special Needs BIOMET (CAMILO) NOTIFIED-NB documented in this encounter Results * CARDIAC EKG ORDER (06/16/2015 5:03 AM CDT) Narrative 06/16/2015 5:03 AM CDT Ordered by an unspecified provider. Scanned Document CARDIAC SERVICES ORD ERABLES * LAB RESULTS ORDER (06/16/2015 5:03 AM CDT) Narrative 06/16/2015 5:03 AM CDT Ordered by an unspecified provider. Scanned Document LAB - THERAPEUTIC DR NEGRETE MONITORING ORDERABLES * (ABNORMAL) HGB HCT PANEL (06/11/2015 5:09 AM CDT) Hemoglobin 10.9(L) 12.0 - 15.6 gm/dL 06/11/2015 5:15 AM CDT [facility] Hematocrit 33.3(L) 35.9 - 45.5 % 06/11/2015 5:15 AM CDT [facility] Blood BLOOD SPECIMEN / Unknown 06/11/2015 5:09 AM CDT 06/11/2015 5:13 AM CDT Alex Nichols MD LAB - HEMATOLOGY ORD ERABLES [facility] [address] [place] [address] * (ABNORMAL) HGB HCT PANEL (06/10/2015 1:13 AM CDT) Hemoglobin 11.6(L) 12.0 - 15.6 gm/dL 06/10/2015 1:22 AM CDT [facility] Hematocrit 35.1(L) 35.9 - 45.5 % 06/10/2015 1:22 AM CDT [facility] Blood BLOOD SPECIMEN / Unknown 06/10/2015 1:13 AM CDT 06/10/2015 1:18 AM CDT Alex Nichols MD LAB - HEMATOLOGY ORD ERABLES [facility] [address] [place] [address] documented in this encounter Visit Diagnoses Not on filedocumented in this encounter Administered Medications Inactive Administered Medications - up to 3 most recent administrations Medication Order MAR Action Action Date Dose Rate Site 0.9% NaCl injection 3 mL 3 mL, Intracatheter, EVERY 8 HOURS, First dose on Sun06/10/15 at 0600, Until Discontinued, Post-op $ Given 06/10/2015 8:25 PM CDT 3 mL $ Given 06/10/2015 3:17 PM CDT 3 mL $ Given 06/10/2015 4:41 AM CDT 3 mL acetaminophen (TYLENOL) tablet 1,000 mg 1,000 mg, Oral, PRE-OP ONCE, 1 dose, On Sun06/09/15 at 0938, Maximum allowable Acetaminophen amount = 4 Grams (4000 mg) / 24 hours., Pre-op $ Given 06/09/2015 10:01 AM CDT 1,000 mg aspirin (ASPIRIN) tablet 325 mg 325 mg, Oral, 2 TIMES DAILY, First dose (after last modification) on Sun06/10/15 at 0900, Until Discontinued, VTE PROPHYLAXIS, Post-op $ Given 06/12/2015 8:46 AM CDT 325 mg $ Given 06/11/2015 8:11 PM CDT 325 mg $ Given 06/11/2015 9:43 AM CDT 325 mg ceFAZolin (ANCEF) IVPB 1 g 1 g, at 100 mL/hr, Intravenous, EVERY 8 HOURS, 2 doses, First dose on Sun06/09/15 at 1600, Last dose on Sun06/10/15 at 0000 $ Given 06/10/2015 12:54 AM CDT 1 g 100 mL/hr $ Given 06/09/2015 4:23 PM CDT 1 g 100 mL/hr ceFAZolin (ANCEF) IVPB 1 g 1 g, at 100 mL/hr, Intravenous, EVERY 8 HOURS, 2 doses, First dose on Sun06/09/15 at 1630, Last dose on Sun06/10/15 at 0030 $ Given 06/10/2015 1:32 AM CDT 1 g 100 mL/hr $ Given 06/09/2015 5:08 PM CDT 1 g 100 mL/hr celecoxib (CeleBREX) capsule 400 mg 400 mg, Oral, PRE-OP ONCE, 1 dose, On Sun06/09/15 at 0938, Pre-op $ Given 06/09/2015 10:01 AM CDT 400 mg celecoxib (CeleBREX) capsule 400 mg 400 mg, Oral, DAILY, First dose on Sun06/10/15 at 0900, Until Discontinued, Post-op $ Given 06/12/2015 8:47 AM CDT 400 mg $ Given 06/11/2015 9:43 AM CDT 400 mg $ Given 06/10/2015 9:12 AM CDT 400 mg famotidine (PEPCID) tablet 20 mg 20 mg, Oral, ONCE PRN, Heartburn, 1 dose, Starting on Sun06/09/15 at 0938, Until Sun06/09/15 at 1001, Administer famotidine (PEPCID) 20mg po (one dose) if patient has BMI greater than 36 or has history of reflux and has not taken own medications prior to arrival morning of surgery, Pre-op $ Given 06/09/2015 10:01 AM CDT 20 mg hydrochlorothiazide (HYDRODIURIL) tablet 12.5 mg 12.5 mg, Oral, DAILY, First dose on Sun06/09/15 at 1630, Until Discontinued $ Given 06/11/2015 9:43 AM CDT 12.5 mg $ Given 06/10/2015 9:14 AM CDT 12.5 mg $ Given 06/09/2015 4:26 PM CDT 12.5 mg hydrocodone-acetaminophen (NORCO) 10-325 MG tablet 1 Tab 1 tablet, Oral, EVERY 4 HOURS PRN, Severe Pain, Starting on Sun06/09/15 at 1507, Until 7/18/15 at 1328, Post-op $ Given 06/11/2015 9:44 AM CDT 1 tablet $ Given 06/11/2015 4:57 AM CDT 1 tablet $ Given 06/10/2015 10:22 PM CDT 1 tablet HYDROmorphone PF (DILAUDID) injection 0.5 mg 0.5 mg, Intravenous, EVERY 10 MIN PRN, Severe Pain, If the patient is in severe pain, they may receive fentanyl 25 mcg in addition to dilaudid for its quickness of onset, as long as there are no signs of hypoventilation, 4 doses, Starting on Sun06/09/15 at 1235, Until Sun06/09/15 at 1448, Maximum total of 4 doses If patient reaches max total dose, please consult anesthesiologist prior to further administration of pain meds. Hold pain meds if there are signs of hypoventilation., PACU $ Given 06/09/2015 1:40 PM CDT 0.5 mg $ Given 06/09/2015 1:20 PM CDT 0.5 mg iron polysaccharides (NIFEREX 150) capsule 150 mg 150 mg, Oral, DAILY, First dose on Sun06/09/15 at 1615, Until Discontinued $ Given 06/12/2015 8:46 AM CDT 150 mg $ Given 06/11/2015 9:43 AM CDT 150 mg $ Given 06/10/2015 9:14 AM CDT 150 mg ketorolac (TORADOL) injection 15 mg 15 mg, Intravenous, EVERY 6 HOURS PRN, Moderate Pain, Starting on Sun06/09/15 at 1507, Until Piedad 06/10/15 at 1506, Post-op $ Given 06/09/2015 4:43 PM CDT 15 mg lactated ringers infusion at 20 mL/hr, Intravenous, PRE-OP CONTINUOUS, Starting on Sun06/09/15 at 0945, Until Sun06/09/15 at 1448, Pre-op $ New Bag/Syringe 06/09/2015 10:02 AM CDT 20 mL/hr lactated ringers infusion at 100 mL/hr, Intravenous, CONTINUOUS, Starting on Sun06/09/15 at 1515, Until Piedad 06/10/15 at 0556, Post-op $ New Bag/Syringe 06/09/2015 4:29 PM CDT 100 mL/hr losartan (COZAAR) tablet 100 mg 100 mg, Oral, DAILY, First dose on Sun06/09/15 at 1630, Until Discontinued, Substituted for hyzaar per Pharmacy and Therapeutics Committee Interchange Policy. $ Given 06/12/2015 8:46 AM CDT 100 mg $ Given 06/11/2015 9:44 AM CDT 100 mg $ Given 06/10/2015 9:13 AM CDT 100 mg morphine 1 mg/ml MUSIC BOX MECHANIC Intravenous, MUSIC BOX MECHANIC, Starting on Sun06/09/15 at 1236, Until Sun06/10/15 at 0556, [employer]OX MECHANIC Dose: 1 mg dose with 12 min lockout (5 mg/hr) Contact physician if respiratory rate falls below 10/minute. If respiratory rate < 7/min administer naloxone (Narcan) 0.2 mg IV STAT, begin oxygen at 4-10 LPM, STOP MUSIC BOX MECHANIC immediately, and contact physician., Post-op $ New Bag/Syringe 06/09/2015 12:51 PM CDT 1 mg ondansetron (disintegrating) (ZOFRAN ODT) tablet 4 mg 4 mg, Oral, PRE-OP ONCE, 1 dose, On Sun06/09/15 at 0938, Pre-op $ Given 06/09/2015 10:01 AM CDT 4 mg ondansetron (ZOFRAN) injection 4 mg 4 mg, Intravenous, EVERY 6 HOURS, 3 doses, First dose on Sun06/09/15 at 1830, Last dose on Sun06/10/15 at 0630, Post-op $ Given 06/09/2015 8:46 PM CDT 4 mg oxyCODONE CR 12hr (OxyCONTIN) tablet 10 mg 10 mg, Oral, EVERY 12 HOURS, 2 doses, First dose on Sun06/09/15 at 2100, Last dose on Sun06/10/15 at 0900, Administer 10 hours post-op and morning of POD# Do not crush, chew, or cut in half., Post-op $ Given 06/09/2015 8:46 PM CDT 10 mg oxyCODONE CR 12hr (OxyCONTIN) tablet 20 mg 20 mg, Oral, PRE-OP ONCE, 1 dose, On Sun06/09/15 at 0938, Do not crush, chew, or cut in half., Pre-op $ Given 06/09/2015 10:01 AM CDT 20 mg oxyCODONE-acetaminophen (PERCOCET) 5-325 MG tablet 1 Tab 1 tablet, Oral, EVERY 4 HOURS PRN, Mild Pain, Severe Pain, Starting on Sun06/11/15 at 1224, Until 06/12/15 at 1328 $ Given 06/12/2015 8:44 AM CDT 1 tablet $ Given 06/11/2015 6:58 PM CDT 1 tablet $ Given 06/11/2015 1:38 PM CDT 1 tablet scopolamine (TRANSDERM-SCOP) 1 MG/3DAYS patch 1.5 mg 1.5 mg, Administer over 72 Hours, PRE-OP ONCE, 1 dose, On Sun06/09/15 at 0938, Apply patch behind the ear, do not cut patch, only 1 patch should be worn at a time and remove old patch before applying new patch.This patch may contain metal and is not compatible with MRI. Notify radiology of patch location upon arrival to MRI. $ Applied 06/09/2015 10:00 AM CDT 1.5 mg Behind Left Ear senna-docusate (SENOKOT-S) tablet 1 Tab 1 tablet, Oral, 2 TIMES DAILY, First dose on Sun06/09/15 at 2100, Until Discontinued, Post-op $ Given 06/11/2015 8:11 PM CDT 1 tablet $ Given 06/11/2015 9:44 AM CDT 1 tablet $ Given 06/10/2015 8:24 PM CDT 1 tablet tranexamic acid (CYKLOKAPRON) bolus 1,000 mg 1,000 mg, at 200 mL/hr, Intravenous, ONCE, 1 dose, On Sun06/09/15 at 1345 $ Given 06/09/2015 2:05 PM CDT 1,000 mg 200 mL/hr documented in this encounter Active and Recently Administered Medications Times are shown in CDT. Scheduled Medication Order 06/10/2015 06/11/2015 06/12/2015 0.9% NaCl injection 3 mL (CANCELED) 3 mL, Intracatheter, EVERY 8 HOURS, First dose on Sun06/10/15 at 0600, Until Discontinued, Post-op 0441 ($ Given - Provider: Paula Zavala RN)1517 ($ Given - Provider: Alessia Stanton)2025 ($ Given - Provider: Paula Zavala RN) 0457 (Not Administered - Provider: Paula Zavala RN - Reason: Loss of Access)1340 (Not Administered - Provider: Alison Maloney, TAO - Reason: Loss of Access)2200 (Not Administered - Provider: Portia Patel RN - Reason: Loss of Access) 0600 (Not Administered - Provider: Portia Patel RN - Reason: Loss of Access) aspirin (ASPIRIN) tablet 325 mg 325 mg, Oral, 2 TIMES DAILY, First dose (after last modification) on Sun06/10/15 at 0900, Until Discontinued, VTE PROPHYLAXIS, Post-op 911 ($ Given - Provider: Alessia Stanton)2023 ($ Given - Provider: Paula Zavala RN) 09 ($ Given - Provider: Alison Maloney, TAO)2010 ($ Given - Provider: Portia Patel, TAO) 0846 ($ Given - Provider: Tiff Parker, TAO) ceFAZolin (ANCEF) IVPB 1 g (COMPLETED) 1 g, at 100 mL/hr, Intravenous, EVERY 8 HOURS, 2 doses, First dose on Sun06/09/15 at 1600, Last dose on Sun06/10/15 at 0000 0054 ($ Given - Provider: Paula Zavala RN)0124 (Rx Stopped - Provider: Paula Zavala RN) ceFAZolin (ANCEF) IVPB 1 g (COMPLETED) 1 g, at 100 mL/hr, Intravenous, EVERY 8 HOURS, 2 doses, First dose on Sun06/09/15 at 1630, Last dose on Sun06/10/15 at 0030 0132 ($ Given - Provider: Paula Zavala RN)0202 (Rx Stopped - Provider: Paula Zavala RN) celecoxib (CeleBREX) capsule 400 mg (CANCELED) 400 mg, Oral, DAILY, First dose on Sun06/10/15 at 0900, Until Discontinued, Post-op 911 ($ Given - Provider: Alessia Stanton) 0943 ($ Given - Provider: Alison Maloney RN) 0847 ($ Given - Provider: Tiff Parker, TAO) hydrochlorothiazide (HYDRODIURIL) tablet 12.5 mg (CANCELED)(Linked Group 1) 12.5 mg, Oral, DAILY, First dose on Sun06/09/15 at 1630, Until Discontinued 09 ($ Given - Provider: Alessia Stanton) 0943 ($ Given - Provider: Alison Maloney RN) 0847 (Not Administered - Provider: Tiff Parker RN - Reason: Refused-Patient - Comment: will take at home) iron polysaccharides (NIFEREX 150) capsule 150 mg (CANCELED) 150 mg, Oral, DAILY, First dose on Sun06/09/15 at 1615, Until Discontinued 09 ($ Given - Provider: Alessia Stanton) 0943 ($ Given - Provider: Alison Maloney RN) 0846 ($ Given - Provider: Tiff Parker, TAO) losartan (COZAAR) tablet 100 mg (CANCELED)(Linked Group 1) 100 mg, Oral, DAILY, First dose on Sun06/09/15 at 1630, Until Discontinued, Substituted for hyzaar per Pharmacy and Therapeutics Committee Interchange Policy. 09 ($ Given - Provider: Alessia Stanton) 0944 ($ Given - Provider: Alison Maloney RN) 0846 ($ Given - Provider: Tiff Parker, TAO) senna-docusate (SENOKOT-S) tablet 1 Tab (CANCELED) 1 tablet, Oral, 2 TIMES DAILY, First dose on Sun06/09/15 at 2100, Until Discontinued, Post-op 0912 ($ Given - Provider: Alessia Stanton)2023 ($ Given - Provider: Paula Zavala RN) 0944 ($ Given - Provider: Alison Maloney RN)2010 ($ Given - Provider: Portia Patel RN) 0846 (Not Administered - Provider: Tiff Parker RN - Reason: Patient Condition - Comment: bm x2 ythis am) PRN Medication Order 06/10/2015 06/11/2015 06/12/2015 hydrocodone-acetaminop hen (NORCO) 10-325 MG tablet 1 Tab (CANCELED) 1 tablet, Oral, EVERY 4 HOURS PRN, Severe Pain, Starting on Sun06/09/15 at 1507, Until 06/12/15 at 1328, Post-op 0440 ($ Given - Provider: Paula Zavala RN)0913 ($ Given - Provider: Alessia C Maximino)1401 ($ Given - Provider: Kira Clarke RN)1810 ($ Given - Provider: Alessia Stanton)2222 ($ Given - Provider: Paula Zavala, TAO) 0457 ($ Given - Provider: Paula Zavala, TAO)0944 ($ Given - Provider: Alison Maloney RN) oxyCODONE-acetaminophe n (PERCOCET) 10-325 MG tablet 1 Tab 1 tablet, Oral, EVERY 4 HOURS PRN, Severe Pain, Starting on Sun06/11/15 at 1223, Until 06/12/15 at 1328 oxyCODONE-acetaminophe n (PERCOCET) 5-325 MG tablet 1 Tab (CANCELED) 1 tablet, Oral, EVERY 4 HOURS PRN, Mild Pain, Severe Pain, Starting on Sun06/11/15 at 1224, Until 06/12/15 at 1328 1338 ($ Given - Provider: Alison Maloney RN)1858 ($ Given - Provider: Alessia Stanton RN) 0844 ($ Given - Provider: Tiff Parker RN) Linked Groups Order Group 1: losartan (COZAAR) tablet 100 mg (CANCELED)Jump to med 100 mg, Oral, DAILY, First dose on Sun06/09/15 at 1630, Until Discontinued, Substituted for hyzaar per Pharmacy and Therapeutics Committee Interchange Policy. And hydrochlorothiazide (HYDRODIURIL) tablet 12.5 mg (CANCELED)Jump to med 12.5 mg, Oral, DAILY, First dose on Sun06/09/15 at 1630, Until Discontinued documented in this encounter Care Teams Control Director Relationship Specialty Start Date End Date Francisco Long MD PCP - General Internal Medicine 07/03/14 [place] [address] [place] [id number] Orthopedic Surgery 04/22/15 documented as of this encounter
--- OUTSIDE RECORDS SUMMARY | 2024-11-16 12:50 | XMS_ITS | Encounter Summary ---
Author Organization [facility] Health Address [address] [facility] [place] [address] Care Team Providers Care Bessemer Converter Blower Name Role Phone Francisco Long MD Primary Care Provider Unavail able Alex Nichols MD Unavailable [phone] Reason for Visit * Reason Comments Post-Op 3mo check on L TKA, performed on 06/09/15 Encounter Details Date Type Department Care Team (Late st Contact Info) Description 09/03/2015 9:00 AM CDT Office Visit [facility] Orthopedics [address] [facility] [address] [place] [address] [place] [address] [address] Osteoarthrosis, unspecified whether generalized or localized, involving lower leg (Primary Dx) Social History Tobacco Use Types [...] No 06/09/2015 documented as of this encounter Patient Instructions * Patient Instructions* Lupe Duran MA - 09/03/2015 9:16 AM CDT Please call the office with any questions or concerns. documented in this encounter Progress Notes * Cornelio Alba PA-C - 09/03/2015 9:36 AM CDT 3 mths out out on left tka 2-118 Work on motion and stretches Will call to r knee * Lupe Duran MA - 09/03/2015 9:16 AM CDT Pt here for 3mo check on L TKA, performed on 06/09/15 documented in this encounter H&P Notes * Cornelio Alba PA-C - 09/10/2015 3:18 AM CDT DATE OF SERVICE: 09/03/2015 Jolene returns to our office today for the left knee, 3 months out. Every now and then, it does get a little bit sore and achy along the pes anserine area and along the quad tendon area, especially if she is up on it for a period of time. She is thinking about scheduling up for the right knee, but right now she would like to really just kind of rehab the left. CLINICAL EXAMINATION: Shows a well-healed incision with no evidence of any infection. Motion is 2-118 degrees with good strength, good stability and good terminal extension. IMPRESSION: Status post total knee, progressing slowly. PLAN: Still work on the motion and stretching exercises. I have suggested heat and massages. We will see her back in the office at her 1-year followup. If she does want to schedule up a right knee replacement, all she has to do is give us a call. JO ANN Granados M.D. Electronically Signed 09/13/2015 08:12:50 Electronically Signed 09/13/2015 08:14:45 PJD/MedQ #: [id number] documented in this encounter Plan of Treatment Not on file documented as of this encounter Visit Diagnoses Diagnosis Osteoarthrosis, unspecified whether generalized or localized, involving lower leg- Primary documented in this encounter Care Teams Bessemer Converter Blower Relationship Specialty Start Date End Date Francisco Long MD PCP - General Internal Medicine 07/03/14 [place] [address] [place] [id number] Orthopedic Surgery 04/22/15 documented as of this encounter
--- OUTSIDE RECORDS SUMMARY | 2024-11-16 12:50 | XMS_ITS | Encounter Summary ---
Author Organization [facility] Address [address] [facility] [place] [address] Care Team Providers Care Bark Spudder Name Role Phone Francisco Long MD Primary Care Provider Unavail able Alex Nichols MD Unavailable [phone] Reason for Visit * Reason Onset Date Comments Question 06/02/2015 Encounter Details Date Type Department Care Team (Late st Contact Info) Description 06/02/2015 Telephone [facility] Orthopedics [address] [facility] [address] [place] [address] [place] [address] [facility] [address] [place] [address] Question Social History Tobacco Use Types Packs/Day Years Used Date Smoking Tobacco: Never Smokeless Tobacco: Never Alcohol Use Standard Drinks/Week Comments No 0 (1 standard drink = 0.6 oz pur e alcohol) Sex and Gender Information Value Date Recorded Sex Assigned at Not on file Gender Identity Not on file Sexual Orientation Not on file documented as of this encounter Miscellaneous Notes * Telephone Encounter - Lupe Duran MA - 06/02/2015 4:51 PM CDT Clearance received. Patient advised by Karen Das. * Telephone Encounter - Gabby Geronimo - 06/02/2015 3:19 PM CDT Patient was calling to make sure that clearance paper work was received. Please advise. documented in this encounter Plan of Treatment Not on file documented as of this encounter Visit Diagnoses Not on filedocumented in this encounter Care Teams Bark Spudder Relationship Specialty Start Date End Date Francisco Long MD PCP - General Internal Medicine 07/03/14 [place] [address] [place], [place] [id number] Orthopedic Surgery 04/22/15 documented as of this encounter
--- OUTSIDE RECORDS SUMMARY | 2024-11-16 12:50 | XMS_ITS | Encounter Summary ---
Author Organization [facility] Health Address [facility] [facility] [place] [address] Care Team Providers Care Business Systems Advisor Name Role Phone Francisco Long MD Primary Care Provider Unavail able Alex Nichols MD Unavailable [phone] Encounter Details Date Type Department Care Team (Latest Contact Info) Description 12/16/2015 9:18 AM CULINARY INTERN - 12/16/2015 11:59 PM CULINARY INTERN Hospital Encounter [facility] [address] [place] [address] [place] [address] [place] [address] Discharge Disposition: Home or Self [...] Sign Reading Time Taken Comments Blood Pressure 147/81 12/16/2015 9:08 AM CULINARY INTERN Pulse 87 12/16/2015 9:08 AM CULINARY INTERN Temperature - - Respiratory Rate - - Oxygen Saturation - - Inhaled Oxygen Concentration - - Weight 87.1 kg (192 lb) 12/16/2015 9:08 AM CULINARY INTERN Height 170.2 cm (5' 7 ) 12/16/2015 9:08 AM CULINARY INTERN Body Mass Index 30.07 12/16/2015 9:08 AM CULINARY INTERN documented in this encounter Functional Status Functional [...] No 06/09/2015 documented as of this encounter Medications at [...] 7 days Resume when ok with your cheesemaker helper 3 01/07/2016 Other once daily [employer] [place] Supplement Instructed to stop 10 days before surgery aspirin (ASPIRIN) 325 MG tablet Take 1 Tab by mouth 2 times daily for 42 days Take until 02/19/16 for blood clot prevention. 01/08/2016 6 celecoxib (CELEBREX) 200 MG capsule Take 1 Cap by mouth 2 times daily 60 Cap 0 01/07/2016 02/01/2016 celecoxib (CELEBREX) 200 MG capsule TAKE 1 CAPSULE BY MOUTH TWICE DAILY WITH MORNING AND EVENING MEAL. 60 Cap 1 06/21/2015 01/06/2016 famotidine (PEPCID) 20 MG tablet Take 1 Tab by mouth once daily 01/07/2016 02/29/2016 hydrocodone-acetamino phen (NORCO) 10-325 MG tablet Take 0.5-1 Tabs by mouth every 6 hours as needed 90 Tab 0 01/07/2016 02/01/2016 methotrexate 2.5 MG tabletIndications:Ost eoarthrosis, unspecified whether generalized or localized, involving lower leg Take 15 mg by mouth every 7 days 3 08/31/2015 01/07/2016 predniSONE (DELTASONE) 10 MG tabletIndications:Ost eoarthrosis, unspecified whether generalized or localized, involving lower leg Take 10 mg by mouth once daily 5 08/20/2015 01/06/2016 documented as of this encounter Plan of Treatment Not on file documented as of this encounter Procedures Procedure Name Priority Date/Time Associated Diagnosis Comments EKG 12-LEAD Routine 12/16/2015 10:15 AM CULINARY INTERN Preop examination CBC W AUTO DIFFERENTIAL Routine 12/16/2015 9:33 AM CULINARY INTERN Preop examination COMPREHENSIVE METABOLIC PANEL Routine 12/16/2015 9:33 AM CULINARY INTERN Preop examination CULTURE MSSA/MRSA Routine 12/16/2015 8:3 5 AM CULINARY INTERN Preop examination documented in this encounter Results * EKG 12-LEAD (12/16/2015 10:15 AM CULINARY INTERN) Ventricular Rate 80 BPM [facility] Atrial Rate 80 BPM [facility] P-R Interval 178 ms [facility] QRS Duration ms 86 ms [facility] Q-T Interval ms 396 ms [facility] QTC Calculation (Bezet) 456 ms [facility] Calculated P [place] 52 degrees [facility] Calculated R [place] -19 degrees [facility] Calculated T [place] 52 degrees [facility] Interpretation EKG Normal sinus rhythm Normal ECG When compared with ECG of 19-MAY-2015 08:31, No significant change was found Confirmed by [facility]U SPANGLER, [facility] ([id number]) on 12/16/2015 11:41:27 AM [facility] 12/16/2015 10:1 5 AM CULINARY INTERN 12/16/2015 11:41 AM [facility] Alex Nichols MD ECG ORDERABLES [facility] * (ABNORMAL) COMPREHENSIVE METABOLIC PANEL (12/16/2015 9:33 AM CULINARY INTERN) Glucose 200(H) 74 - 106 mg/dL 12/16/2015 10:55 AM CULINARY INTERN [facility] Sodium 141 136 - 145 mmol/L 12/16/2015 10:55 AM CULINARY INTERN [facility] Potassium 3.9 3.5 - 5.1 mmol/L 12/16/2015 10:55 AM CULINARY INTERN [facility] Chloride 104 98 - 107 mmol/L 12/16/2015 10:55 AM CULINARY INTERN [facility] CO2 31 22 - 31 mmol/L 12/16/2015 10:55 AM CULINARY INTERN [facility] Calcium 8.9 8.5 - 10.1 mg/dL 12/16/2015 10:55 AM [facility] Anion Gap 6 5 - 20 mmol/L 12/16/2015 10:55 AM [facility] BUN 18 7 - 21 mg/dL 12/16/2015 10:55 AM [facility] Creatinine 0.92 0.50 - 1.30 mg/dL 12/16/2015 10:55 AM [facility] Alkaline Phosphatase 68 38 - 126 U/L 12/16/2015 10:55 AM [facility] ALT 25 12 - 78 U/L 12/16/2015 10:55 AM [facility] AST 14 5 - 40 U/L 12/16/2015 10:55 AM [facility] Protein Total 6.8 6.4 - 8.2 gm/dL 12/16/2015 10:55 AM [facility] Albumin 3.5 3.4 - 5.0 gm/dL 12/16/2015 10:55 AM [facility] Bilirubin Total 0.4 0.2 - 1.0 mg/dL 12/16/2015 10:55 AM [facility] eGFR by MDRD >60 >60 mL/min/1.7 3m2 12/16/2015 10:55 AM [facility] eGFR by MDRD >60 >60 mL/min/1.7 3m2 12/16/2015 10:55 AM [facility] Blood BLOOD SPECIMEN / Unknown 12/16/2015 9:33 AM [facility] 12/16/2015 10:32 AM [facility] Alex Nichols MD LAB - CHEMISTRY DANILO WRAY [facility] [address] [place] [address] * (ABNORMAL) CBC W AUTO DIFFERENTIAL (12/16/2015 9:33 AM [facility]) WBC 6.1 4.4 - 10.7 x10^9/L 12/16/2015 10:35 AM [facility] WBC Corrected x10^9/L 12/16/2015 10:35 AM [facility] RBC 4.79 3.80 - 5.20 x10^12/L 12/16/2015 10:35 AM [facility] Hemoglobin 12.8 12.0 - 15.6 gm/dL 12/16/2015 10:35 AM [facility] Hematocrit 39.9 35.9 - 45.5 % 12/16/2015 10:35 AM [facility] MCV 83.3 80.7 - 98.3 fl 12/16/2015 10:35 AM [facility] MCH 26.7 26.7 - 34.0 pg 12/16/2015 10:35 AM [facility] MCHC 32.1 30.8 - 35.9 gm/dL 12/16/2015 10:35 AM [facility] Platelet Count 224 153 - 416 x10^9/L 12/16/2015 10:35 AM [facility] RDW-CV 17.4(H) 12.1 - 14.9 % 12/16/2015 10:35 AM [facility] MPV 9.7 9.4 - 12.9 fl 12/16/2015 10:35 AM [facility] Neutrophils % 79.9(H) 44.0 - 73.0 % 12/16/2015 10:35 AM [facility] Lymphocytes % 12.0(L) 20.0 - 43.0 % 12/16/2015 10:35 AM [facility] Monocytes % 4.4(L) 5.0 - 13.0 % 12/16/2015 10:35 AM [facility] Eosinophils % 2.8 0.0 - 6.0 % 12/16/2015 10:35 AM [facility] Basophils % 0.7 0.0 - 2.0 % 12/16/2015 10:35 AM [facility] Immature Granulocytes 0.2 0 - 1 % 12/16/2015 10:35 AM [facility] Neutrophil Absolute 4.87 2.01 - 7.14 x10^9/L 12/16/2015 10:35 AM [facility] Lymphocytes Absolute 0.73(L) 1.07 - 3.94 x10^9/L 12/16/2015 10:35 AM [facility] Monocytes Absolute 0.27 0.26 - 1.07 x10^9/L 12/16/2015 10:35 AM [facility] Eosinophils Absolute 0.17 0 - 0.47 x10^9/L 12/16/2015 10:35 AM CULINARY INTERN [facility] Basophils Absolute 0.04 0 - 0.08 x10^9/L 12/16/2015 10:35 AM CULINARY INTERN [facility] Immature Granulocytes Absolute 0.01 0.00 - 0.06 x10^9/L 12/16/2015 10:35 AM CULINARY INTERN [facility] nRBC Auto 0 /100 WBC 12/16/2015 10:35 AM CULINARY INTERN [facility] Blood BLOOD SPECIMEN / Unknown 12/16/2015 9:33 AM CULINARY INTERN 12/16/2015 10:32 AM CULINARY INTERN Alex Nichols MD LAB - HEMATOLOGY ORD ERABLES Performing Organization Address City/[facility]/ZIP Co de Phone Number [facility] [address] [place] [address] * CULTURE MSSA/MRSA (12/16/2015 8:35 AM CULINARY INTERN) Culture Negative for MRSA/MSSA SUZANNE 12/17/2015 2:28 PM CULINARY INTERN [facility] MICROBIOLOGY Microbiology SPECIMEN FROM NASAL FOSSAE / Unknown 12/16/2015 8:35 AM CULINARY INTERN 12/16/2015 10:31 AM CULINARY INTERN Alex Nichols MD LAB - MICROBIOLOGY O RDERABLES Performing Organization Address City/[facility]/ZIP Co de Phone Number [facility] MICROBIOLOGY [address] [place] [address] [phone] documented in this encounter Visit Diagnoses Diagnosis Preop examination- Primary Preoperative examination, unspecified documented in this encounter Care Teams Business Systems Advisor Relationship Specialty Start Date End Date Francisco Long MD PCP - General Internal Medicine 07/03/14 [place] [id number] [address] Orthopedic Surgery 04/22/15 documented as of this encounter
--- OUTSIDE RECORDS SUMMARY | 2024-11-16 12:50 | XMS_ITS | Encounter Summary ---
Author Organization [facility] Address [address] [facility] [place] [address] Care Team Providers Care Cage Supervisor Name Role Phone Francisco Long MD Primary Care Provider Unavail able Alex Nichols MD Unavailable Reason for Visit * Auth/Cert (Routine) - Closed Specialty Diagnoses / Procedures Referred By Contac t Referred To Contact Diagnoses Primary localized osteoarthrosis, lower leg Procedures PA TOTAL KNEE ARTHROPLASTY Referral ID Status Reason Start Date Expiration Date Visits Re quested Visits Authorized [id number] Closed 06/03/2015 11/30/2015 1 1 Encounter Details Date Type Department Care Team (Late st Contact Info) Description 06/09/2015 10:05 AM CDT - 06/09/2015 12:17 PM CDT Surgery [facility] hospital - Perioperative Surgery [address] [place] [address] [place] [address] [facility] [address] [place] [address] LEFT TOTAL KNEE ARTHROPLASTY Surgery Details Date/Time Status Location OR Service Patient Class Case Class Case Type Trauma Case? 06/09/2015 10:05 AM Posted [facility] MAIN OR OR 12 Orthopedics Administrative Services Coordinator Admit Surgical Elective > 5 days Panel 1 Procedure LRB Anes Op Region Wound Class Comments LEFT TOTAL KNEE ARTHROPLASTY Left Spinal Knee C lean Surgeon Surgeon Role Service Panel Alex Nichols MD Primary Orthopedics 1 Special Needs BIOMET (CAMILO) NOTIFIED-NB documented in this encounter Social History Tobacco Use Types Packs/Day Years [...] Attending Physician: Alex Nichols MD Discharge Physician: Alex Nichols MD Admission Diagnosis: djd knee Resolved [...] discharge diagnosis is DJD (degenerative joint disease) [675994] No special diet needed Resume your normal [...] wiggles toes, normal sensation to light touch RELATIONSHIP CONSULTANT. Alert , moves all extremities against gravity [...] hold methotrexate for now - followup with iron launder operator as an outpatient 4. Chronic anemia: Monitor [...] Left Bed Mobility: Supine to Sit: Complete What Cheer Sit to Supine: Complete What Cheer Transfers: Sit to Stand: Modified What Cheer Stand to Sit: Modified What Cheer Mobility: Distance Ambulated: 220 FEET Ambulation: Assistive Device: Gait Belt;Walker-2 Wheeled Ambulation: Level of Assistance: Modified What Cheer Ambulation: Gait Deviations: [place] - Decreased;Step Length [...] 98.2 ??F 97.6 ??F 98 ??F Resp: Weight: 88.451 kg (195 lb) SpO2: 93% [...] wiggles toes, normal sensation to light touch RELATIONSHIP CONSULTANT. Alert , moves all extremities against gravity [...] hold methotrexate for now - followup with iron launder operator as an outpatient 4. Chronic anemia: Monitor hemoglobin postop- has been stable resume oral iron supplements * Rivka Centeno, PT - 06/11/2015 3:28 PM CDT Patient [...] note serves as the discharge summary. Rivka Centeno, PT, DPT x [phone] * Ludmila Bright RN - 06/11/2015 9:54 AM CDT CM reviewed chart. Plan is for patient to be discharged home with [facility] tomorrow, pending physicianapproval. Patient's family will be providing transportation home. CM will continue following for any discharge needs. Ludmila Bright RN, BSN hydro plant site manager Asc [phone] * Alison Maloney RN - 06/11/2015 7:26 [...] used while patient out of bed. * Paula Zavala RN - 06/11/2015 6:05 AM CDT Shift Highlight: Jolene is alert and oriented x4. Up with SBA; voiding without difficulty. Pain controlled with [place] 10. Denies chest pain, SOB, and nausea. Encouraged patient to use incentive spirometer. Silver mepilex dressing to surgical knee clean, dry, and intact. Vital signs stable. Will continue to monitor. Paula Zavala RN 06/11/2015 6:05 AM * Paula Zvaala RN - 06/10/2015 8:49 PM CDT Problem: [...] Extended Emergency Contact Information Primary Emergency Contact: Douglas Cedillo [facility] Mobile Relation: Spouse Anticipated Discharge [...] requests: Proposed Home Health Agency: *[facility] Home Care Intake Transportation at discharge: Family Comments: CM will continue following. Ludmila Bright RN, BSN hydro plant site manager [facility] [phone] * Alessia Stanton - 06/10/2015 5:20 PM CDT Shift highlights: Patient is alert and oriented x 4. Up with one assist. Pain controlled by [place] 10 q4hrs. Denies any chest pain, SOA, [...] Centeno PT, DPT x [phone] * Alessia Stanotn - 06/10/2015 12:32 PM CDT Problem: Incision [...] 99.3 ??F 97.8 ??F 98.7 ??F Resp: 18 Weight: SpO2: 97% 94% 93% Temp (30hrs) [...] wiggles toes, normal sensation to light touch RELATIONSHIP CONSULTANT. Alert , moves all extremities against gravity [...] hold methotrexate for now - followup with iron launder operator as an outpatient 4. Chronic anemia: Monitor [...] needs upon discharge from acute care. Rivka Centeno PT, DPT x [phone] If this is the last PT visit, this note serves as the discharge summary. * Paula Zavala RN - 06/10/2015 5:35 AM CDT Shift Highlight: Jolene is alert and oriented x4. Up with CGA; voiding without difficulty althoughincontinent at times. Pain controlled with [employer] [facility]. Denies chest pain, SOB, and nausea. Encouraged [...] pain pt request to use the ms table and desk finisher less inorder to sleep. I/o good. Wearing depends from home. Not oob this pm due to slight numbness remains in the left ft. Spouse spending the night. Thanks tao moser * Yennifer Rayo RN - 06/09/2015 6:47 PM CDT Problem: Fall Risk Goal: Patient will remain free of falls Outcome: Ongoing Hourly rounds * Fadia Marrero PharmD - 06/09/2015 10:35 AM CDT .[facility] Pharmacy Clinical Services Admission Medication Review Jolene [...] take part of Jolene Cedillo's care. Fadia Marrero PHARMD * Cornelio Alba PA-C - 06/08/2015 5:35 PM CDT [facility] PRE-OPERATIVE HISTORY AND PHYSICAL PATIENT NAME: Jolene Cedillo : 1945 CSN: [id number] HISTORY OF PRESENT ILLNESS: This is a 69 y.o. year-old female seen at the office regarding her leftknee. The left knee has been symptomatic for over several years. 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 MD Mayank methotrexate 2.5 MG tablet Take 5 mg by mouth every Sunday, Sunday & Sunday Historical MD Tim No current facility-administered medications for this encounter. 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 IMPRESSION: [...] TO FOLLOW Doris Gasca L.P.N. ADMISSION COORDINATOR [facility] * Natividad Diamond MD - 06/09/2015 3:32 [...] sounds MSK: no clubbing, cyanosis or edema RELATIONSHIP CONSULTANT. Alert , No facial assymetry, clear speech. [...] hold methotrexate for now - followup with iron launder operator as an outpatient 4. Chronic anemia: Monitor hemoglobin postop resume oral iron supplements Treatment plan discussed with patient at bedside. All questions were answered. Orders placed in chart. CC: Alex Watkins MD documented in this encounter OR Notes * Operative - Alex Nichols MD - 06/09/2015 12:19 PM CDT Operative Report Left Total Knee PATIENT: Jolene Cedillo : 1945 ADMIT DATE: 06/09/2015 DATE OF SURGERY: 06/09/2015 PHYSICIAN: Alex Nichols MD SURGEON: Alex Nichols MD PANEL MONITOR: Alix Edwards PA-C The skilled assistance of the JO ANN was necessary for the effective and successful completion of this case. The physician shipping and receiving assistant was essential for the proper positioning, [...] reapproximated with 2-0 Vicryl and closed with lnog. A bulky dressing and Cryo-Cuff were applied. [...] - 15.6 gm/dL 06/11/2015 5:15 AM CDT [facility] Hematocrit 33.3(L) 35.9 - 45.5 % 06/11/2015 5:15 AM CDT [facility] Blood BLOOD SPECIMEN / Unknown 06/11/2015 5:09 AM CDT 06/11/2015 5:13 AM CDT Alex Nichols MD LAB - HEMATOLOGY ORD ERABLES Performing Organization Address City/State/[facility] Co de Phone Number [facility] [address] [place] [address] * (ABNORMAL) HGB HCT PANEL (06/10/2015 1:13 AM CDT) Hemoglobin 11.6(L) 12.0 - 15.6 gm/dL 06/10/2015 1:22 AM CDT [facility] Hematocrit 35.1(L) 35.9 - 45.5 % 06/10/2015 1:22 AM CDT [facility] Blood BLOOD SPECIMEN / Unknown 06/10/2015 1:13 AM CDT 06/10/2015 1:18 AM CDT Alex Nichols MD LAB - HEMATOLOGY ORD ERABLES Performing Organization Address [facility] de Phone Number [facility] [address] [place] [address] documented in this encounter Visit Diagnoses Diagnosis Osteoarthrosis, unspecified whether generalized or localized, lower leg documented in this encounter Administered Medications Inactive Administered Medications - up to 3 most recent administrations Medication Order MAR Action Action Date Dose Rate Site bupivacaine PF (MARCAINE PF) 0.25 % injection PRN, Starting on Sun06/09/15 at 1124, Until Sun06/09/15 at 1225, Intra-op $ Given 06/09/2015 11:24 AM CDT 30 mL Operative Site morphine injection PRN, Starting on Sun06/09/15 at 1124, Until Sun06/09/15 at 1225, Intra-op $ Given 06/09/2015 11:24 AM CDT 10 mg Operative Site polymyxin B 500,000 Units, bacitracin 50,000 Units in NaCl 0.9 % 1,000 mL irrigation PRN, Starting on Sun06/09/15 at 1124, Until Sun06/09/15 at 1225, Intra-op $ Given 06/09/2015 11:24 AM CDT 1,000 mL Operative Site vancomycin (VANCOCIN) injection PRN, Starting on Sun06/09/15 at 1124, Until Sun06/09/15 at 1225, Intra-op $ Given 06/09/2015 11:24 AM CDT 500 mg Operative Site documented in this encounter Active and Recently Administered Medications Times are shown in CDT. Scheduled Medication Order 06/10/2015 06/11/2015 06/12/2015 0.9% NaCl injection 3 mL (CANCELED) 3 mL, Intracatheter, EVERY 8 HOURS, First dose on Piedad 06/10/15 at 0600, Until Discontinued, Post-op 0441 ($ Given - Provider: Paula Zavala RN)1517 ($ Given - Provider: Alessia Stanton)2025 ($ Given - Provider: Paula Zavala RN) 0457 (Not Administered - Provider: Paula Zavala RN - Reason: Loss of Access)1340 (Not Administered - Provider: Alison Maloney RN - Reason: Loss of Access)2200 (Not Administered - Provider: Portia Patel RN - Reason: Loss of Access) 0600 (Not Administered - Provider: Portia Patel RN - Reason: Loss of Access) aspirin (ASPIRIN) tablet 325 mg 325 mg, Oral, 2 TIMES DAILY, First dose (after last modification) on Sun06/10/15 at 0900, Until Discontinued, VTE PROPHYLAXIS, Post-op 0912 ($ Given - Provider: Alessia Stanton)2023 ($ Given - Provider: Paula Zavala RN) 0943 ($ Given - Provider: Alison Maloney, TAO)2010 ($ Given - Provider: Portia Patel, TAO) 0846 ($ Given - Provider: Tiff Parker RN) ceFAZolin (ANCEF) IVPB 1 g (COMPLETED) [...] on Sun06/10/15 at 0900, Until Discontinued, Post-op 0912 ($ Given - Provider: Alessia Stanton) 0943 ($ Given - Provider: Alison Maloney RN) 0847 ($ Given - Provider: Tiff Parker RN) hydrochlorothiazide (HYDRODIURIL) tablet 12.5 mg (CANCELED)(Linked Group 1) 12.5 mg, Oral, DAILY, First dose on Sun06/09/15 at 1630, Until Discontinued 0914 ($ Given - Provider: Alessia Stanton) 0943 ($ Given - Provider: Alison Maloney RN) 0847 (Not Administered - Provider: Tiff Parker RN - Reason: Refused-Patient - Comment: will take at home) iron polysaccharides (NIFEREX 150) capsule 150 mg (CANCELED) 150 mg, Oral, DAILY, First dose on Sun06/09/15 at 1615, Until Discontinued 0914 ($ Given - Provider: Alessia Stanton) 0943 ($ Given - Provider: Alison Maloney RN) 0846 ($ Given - Provider: Tiff Parker, TAO) losartan (COZAAR) tablet 100 mg (CANCELED)(Linked Group 1) 100 mg, Oral, DAILY, First dose on Sun06/09/15 at 1630, Until Discontinued, Substituted for hyzaar per Pharmacy and Therapeutics Committee Interchange Policy. 0913 ($ Given - Provider: Alessia Stanton) 0944 ($ Given - Provider: Alison Maloney RN) 0846 ($ Given - Provider: Tiff Parker, TAO) senna-docusate (SENOKOT-S) tablet 1 Tab (CANCELED) 1 tablet, Oral, 2 TIMES DAILY, First dose on Sun06/09/15 at 2100, Until Discontinued, Post-op 09 ($ Given - Provider: Alessia Stanton)2023 ($ Given - Provider: Paula Zavala RN) 0944 ($ Given - Provider: Alison Maloney RN)2010 ($ Given - Provider: Portia Patel RN) 0846 (Not Administered - Provider: Tiff Parker, RN - Reason: Patient Condition - Comment: bm x2 ythis am) PRN Medication Order 06/10/2015 06/11/2015 06/12/2015 hydrocodone-acetaminop hen (NORCO) 10-325 MG tablet 1 Tab (CANCELED) 1 tablet, Oral, EVERY 4 HOURS PRN, Severe Pain, Starting on Sun06/09/15 at 1507, Until 06/12/15 at 1328, Post-op 0440 ($ Given - Provider: Paula Zavlaa RN)0913 ($ Given - Provider: Alessia Stanton)1401 ($ Given - Provider: Kira Clarke RN)1810 ($ Given - Provider: Alessia Stanton)2222 ($ Given - Provider: Paula Zavala RN) 0457 ($ Given - Provider: Paula Zavala RN)0944 ($ Given - Provider: Alison Maloney RN) [...] RN) 0844 ($ Given - Provider: Tiff Parker, TAO) Linked Groups Order Group 1: losartan (COZAAR) tablet 100 mg (CANCELED)Jump to med 100 mg, Oral, DAILY, First dose on Sun06/09/15 at 1630, Until Discontinued, Substituted for hyzaar per Pharmacy and Therapeutics Committee Interchange Policy. And hydrochlorothiazide (HYDRODIURIL) tablet 12.5 mg (CANCELED)Jump to med 12.5 mg, Oral, DAILY, First dose on Sun06/09/15 at 1630, Until Discontinued documented in this encounter Care Teams Cage Supervisor Relationship Specialty Start Date End Date Francisco Long MD PCP - General Internal Medicine 07/03/14 [place] [address] [place] [address] Orthopedic Surgery 04/22/15 documented as of this encounter
--- OUTSIDE RECORDS SUMMARY | 2024-11-16 12:50 | XMS_ITS | Encounter Summary ---
Author Organization [facility] Address [address] [facility] [place] [address] Care Team Providers Care Associate Technician Name Role Phone Francisco Long MD Primary Care Provider Unavail able Alex Nichols MD Unavailable [phone] Reason for Visit * Reason Onset Date Comments Surgery Scheduling 11/08/2015 Encounter Details Date Type Department Care Team (Late st Contact Info) Description 11/08/2015 Telephone [facility] Orthopedics [address] [facility] [address] [place] [address] [place] [address] [facility] [address] [place] [address] Surgery Scheduling Social History Tobacco Use Types Packs/Day [...] No 06/09/2015 documented as of this encounter Miscellaneous Notes * Telephone Encounter - Mira Keller MA - 11/08/2015 1:16 PM CST Returned call, scheduled TKA for 01/06/16, will mail info NESS LIAISON MANAGER * Telephone Encounter - Dawna Diehl - 11/08/2015 9:58 AM CST Patient called today and would like to schedule surgery on her right knee. She is looking at December 27 , or the if possible. Please call at [phone] available anytime or can leave message. NESS LIAISON MANAGER documented in this encounter Plan of Treatment Not on file documented as of this encounter Visit Diagnoses Not on filedocumented in this encounter Care Teams Associate Technician Relationship Specialty Start Date End Date Francisco Long MD PCP - General Internal Medicine 07/03/14 [place] [address] [address] Orthopedic Surgery 04/22/15 documented as of this encounter
--- OUTSIDE RECORDS SUMMARY | 2024-11-16 12:50 | XMS_ITS | Encounter Summary ---
Author Organization [facility] Address [address] [place] [address] Care Team Providers Care Intelligence Group Supervisor Name Role Phone Francisco Long MD Primary Care Provider Unavail able Alex Nichols MD Unavailable [phone] Reason for Visit * Reason Onset Date Comments Question 07/08/2015 Encounter Details Date Type Department Care Team (Late st Contact Info) Description 07/08/2015 Telephone [facility] Orthopedics [address] [facility] [address] [place] [address] [place] [address] [facility] [address] [place] [address] Question Social History Tobacco Use [...] Miscellaneous Notes * Telephone Encounter - Chitra Matos RN - 07/08/2015 4:05 PM CDT Returned call and answered pts questions regarding and incision. * Telephone Encounter - Dawna Diehl - 07/08/2015 11:37 AM CDT PATIENT CALLED TODAY AND HAD SURGERY ON HER LEFT KNEE-TKA AND WANTED TO KNOW IF THERE IS SOME KIND OF OINTMENT SHE CAN PUT ON THE INCISION BECAUSE IT IS PULLING AND HURTS. PLEASE CALL AT [phone] AVAILABLE ANYTIME. documented in this encounter Plan of Treatment Not on file documented as of this encounter Visit Diagnoses Not on filedocumented in this encounter Care Teams Intelligence Group Supervisor Relationship Specialty Start Date End Date Francisco Long MD PCP - General Internal Medicine 07/03/14 [place] [address] [address] [place] [id number] Orthopedic Surgery 04/22/15 documented as of this encounter
--- OUTSIDE RECORDS SUMMARY | 2024-11-16 12:50 | XMS_ITS | Encounter Summary ---
Author Organization [facility] Address [address] [facility] [place] [address] Care Team Providers Care Plasma Processing Technician Name Role Phone Francisco Long MD Primary Care Provider Unavail able Alex Nichols MD Unavailable [phone] Reason for Visit * Reason Comments Refill Request Encounter Details Date Type Department Care Team (Late st Contact Info) Description 06/18/2015 Refill [facility] Orthopedics [address] [facility] [address] [place] [address] [place] [address] [facility] [address] [place] [address] Refill Request Social History Tobacco Use [...] No 06/09/2015 documented as of this encounter Plan of Treatment Not on file documented as of this encounter Visit Diagnoses Not on filedocumented in this encounter Care Teams Plasma Processing Technician Relationship Specialty Start Date End Date Francisco Long MD PCP - General Internal Medicine 07/03/14 [place] [address] [place] [address] Orthopedic Surgery 04/22/15 documented as of this encounter
--- OUTSIDE RECORDS SUMMARY | 2024-11-16 12:50 | XMS_ITS | Encounter Summary ---
Author Organization [facility] Address [address] [facility] [place] [address] Care Team Providers Care Vinyl Top Installer Name Role Phone Francisco Long MD Primary Care Provider Unavail able Alex Nichols MD Unavailable [phone] Reason for Visit * Reason Onset Date Comments Question 06/01/2015 Encounter Details Date Type Department Care Team (Late st Contact Info) Description 06/01/2015 Telephone [facility] Orthopedics [address] [facility] [address] [place] [address] [place] [address] [facility] [address] [place] [address] Question Social History Tobacco Use [...] Telephone Encounter - Mira Keller MA - 06/01/2015 4:24 PM CDT Spoke to patient regarding lab and clearance details for her 06/09/15 TKA * Telephone Encounter - Marianne Ag - 06/01/2015 3:43 PM CDT Patient is returning Mira's call. documented in this encounter Plan of Treatment Not on file documented as of this encounter Visit Diagnoses Not on filedocumented in this encounter Care Teams Vinyl Top Installer Relationship Specialty Start Date End Date Francisco Long MD PCP - General Internal Medicine 07/03/14 [place] [address] [place] [address] Orthopedic Surgery 04/22/15 documented as of this encounter
--- OUTSIDE RECORDS SUMMARY | 2024-11-16 12:50 | XMS_ITS | Encounter Summary ---
Author Organization [facility] Address [address] [facility] [place] [address] Care Team Providers Care Auto Clutch Rebuilder Name Role Phone Francisco Long MD Primary Care Provider Unavail able Alex Nichols MD Unavailable [phone] Reason for Visit * Reason Comments Post-Op 6wk check on L TKA, performed on 06/09/15 Encounter Details Date Type Department Care Team (Late st Contact Info) Description 07/23/2015 9:50 AM CDT Office Visit [facility] Orthopedics [address] [facility] [address] [place] [address] [place] [address] [address] Osteoarthrosis, unspecified whether generalized or localized, lower leg (Primary Dx); Knee joint replacement by other means Social History Tobacco Use Types Packs/Day Years [...] * Patient Instructions* Lupe Duran MA - 07/23/2015 9:58 AM CDT Please call the office with any questions or concerns. documented in this encounter Progress Notes * Alex Nichols MD - 07/23/2015 10:22 AM CDT Six weeks out working on extention * Lupe Duran MA - 07/23/2015 9:58 AM CDT Pt here for 6wk check on L TKA, performed on 06/09/15 documented in this encounter H&P Notes * Alex Nichols MD - 07/26/2015 6:45 AM CDT DATE OF SERVICE: 07/23/2015 Jolene is 6 weeks out from left total knee arthroplasty. Her knee is doing well. She has no drainage, erythema, or evidence of infection. She has motion from 4 to 121 degrees. She has no varus or valgus instability. AP, lateral, and merchant views demonstrate a well-implanted anterior stabilized cemented total knee arthroplasty. She is pleased with her ongoing functional improvement. We discussed how she should continue to work aggressively on her full extension. We are going to see her back in the office in 6 weeks. Alex Nichols M.D. Electronically Signed 07/26/2015 08:36:44 WCS/MedQ #: [id number] documented in this encounter Procedure Notes * Lisa Adames, RT(R) - 07/23/2015 9:52 AM CDTAssociated Order(s): XR KNEE 3 VW LEFT See progress notes for results documented in this encounter Plan of Treatment Not on file documented as of this encounter Procedures Procedure Name Priority Date/Time Associated Diagnosis Comments XR KNEE LEFT 3VW Routine 07/23/2015 9:51 AM CDT Knee joint replacement by other means documented in this encounter Results * XR KNEE 3 VW LEFT (07/23/2015 9:51 AM CDT) Anatomical Region Laterality Modality Lower Extremity Radiographic Elva ging Narrative 07/23/2015 11:48 AM CDT RT Roque(R) ? 07/23/2015 11:48 AM See progress notes for results Alex Nichols MD DIAGNOSTIC IMAGING O RDERABLES documented in this encounter Visit Diagnoses Diagnosis Osteoarthrosis, unspecified whether generalized or localized, lower leg- Primary Knee joint replacement by other means documented in this encounter Care Teams Auto Clutch Rebuilder Relationship Specialty Start Date End Date Fracnisco Long MD PCP - General Internal Medicine 07/03/14 [place] [address] [place] [address] Orthopedic Surgery 04/22/15 documented as of this encounter
--- OUTSIDE RECORDS SUMMARY | 2024-11-16 12:50 | XMS_ITS | Encounter Summary ---
Author Organization [facility] Address [address] [place], [place] [address] [address] Care Team Providers Care Job Printer Apprentice Name Role Phone Francisco Long MD Primary Care Provider Unavail able Alex Nichols MD Unavailable [phone] Usha Bryan RN Unavailable [phone] Reason for Visit * Auth/Cert (Routine) - Closed Specialty Diagnoses / Procedures Referred By Contac t Referred To Contact Diagnoses Unilateral primary osteoarthritis, right knee Procedures MA TOTAL KNEE ARTHROPLASTY Referral ID Status Reason Start Date Expiration Date Visits Re quested Visits Authorized [id number] Closed 12/24/2015 06/21/2016 1 1 Encounter Details Date Type Department Care Team (Latest Contact Info) Description 01/06/2016 6:16 AM VETERINARY PHARMACOLOGIST - 01/08/2016 1:04 PM VETERINARY PHARMACOLOGIST Hospital Encounter [address] [address] [place] [id number] [address] Surgery General Discharge Disposition: Home [...] Comments Blood Pressure 117/64 01/08/2016 7:50 AM VETERINARY PHARMACOLOGIST Pulse 95 01/08/2016 7:50 AM VETERINARY PHARMACOLOGIST Temperature 36.7 ??C (98.1 ??F) 01/08/2016 7:50 AM CS T Respiratory Rate 18 01/08/2016 7:50 AM VETERINARY PHARMACOLOGIST Oxygen Saturation 93% 01/08/2016 7:50 AM VETERINARY PHARMACOLOGIST Inhaled Oxygen Concentration - - Weight 88.9 kg (196 lb) 01/06/2016 6:58 AM VETERINARY PHARMACOLOGIST Height 170.2 cm (5' 7 ) 01/06/2016 6:58 AM VETERINARY PHARMACOLOGIST Body Mass Index 30.7 01/06/2016 6:58 AM VETERINARY PHARMACOLOGIST documented in this encounter Functional Status Functional [...] No 01/06/2016 documented as of this encounter Discharge Summaries * Tiff Ashley RN - 01/08/2016 11:06 AM CST Physician Discharge Summary Patient name: Jolene Cedillo Admit date: 01/06/2016 Discharge date: 01/08/2016 Admitting Physician: Alex Nichols MD Attending Physician: Alex Nichols MD Discharge Physician: Alex Nichols MD Admission Diagnosis: djd knee Resolved Diagnoses None found. Discharge Diagnoses djd knee Consults Dr Diamond Diagnostic Studies See hospital course Treatments See hospital course Procedures surgery: RTKR Complications of procedures if any: none Hospital [...] amount of weight you put on your right leg as tolerated. Light activity Avoid any [...] The dressing will be discontinued when the lucy are removed. Showering and bathing -- No tub baths until cleared by Dr. Nichols. Staple care Your lucy will be taken out on 01/20/16 by home health. When to call your [...] Take until 02/19/16 for blood clot prevention. Alex Nichols celecoxib 200 MG capsule Commonly known as: CELEBREX Take 1 Cap by mouth 2 times daily Alex Nichols famotidine 20 MG tablet Commonly known as: PEPCID Take 1 Tab by mouth once daily Natividad Diamond hydrocodone-acetaminophen 10-325 MG tablet Commonly known as: NORCO Take 0.5-1 Tabs by mouth every 6 hours as needed Alex Nichols CHANGE how you take these medications Instructions Authorizing Provider methotrexate 2.5 MG tablet What changed: additional instructions Take 6 Tabs by mouth every 7 days Resume when ok with your spikemaking supervisor Natividad Diamond CONTINUE taking these medications Instructions Authorizing Provider ferrous sulfate 325 (65 FE) MG tablet Take 325 mg by mouth daily with breakfast losartan-hydrochlorothiazide 100-12.5 MG tablet Commonly known as: HYZAAR Take 1 Tab by mouth once daily. Other - once daily [employer] [place] Supplement - Instructed to stop 10 days before surgery CC: None RINARY PHARMACOLOGIST documented in this encounter Medications at Time [...] 7 days Resume when ok with your spikemaking supervisor 3 01/07/2016 Other once daily [employer] [place] Supplement Instructed to stop 10 days before surgery aspirin (ASPIRIN) 325 MG tablet Take 1 Tab by mouth 2 times daily for 42 days Take until 02/19/16 for blood clot prevention. 01/08/2016 6 celecoxib (CELEBREX) 200 MG capsule Take 1 Cap by mouth 2 times daily 60 Cap 0 01/07/2016 02/01/2016 famotidine (PEPCID) 20 MG tablet Take 1 Tab by mouth once daily 01/07/2016 02/29/2016 hydrocodone-acetamino phen (NORCO) 10-325 MG tablet Take 0.5-1 Tabs by mouth every 6 hours as needed 90 Tab 0 01/07/2016 02/01/2016 documented as of this encounter Progress Notes * Usha Bryan RN - 01/08/2016 11:17 PM CST Case Management Progress Note Anticipated Discharge Date: 01/08/16 Anticipated level of care / disposition at discharge: Home Health Care Transportation at discharge: Family () Proposed Home Health Agency: *[facility] Home Care Intake Lucy will be taken out on 01/20 by RN Pharmacy benefit: Yes. Equipment At Home: Cane-Straight;Chair-Shower;Walker-2 Wheeled;Crutches-Standard;Steel Layer List DME pt. requires but does not have.: None PCP: Francisco Long MD Physician Followup Appointment(s) Made: No Appointment(s) made with the following physician providers: Surgeon (02/01/16 @ 14:30 Dr. Nichols ) Reason why no appointment was made with physician: Appointment already made ?? Will continue to follow.?? For any questions or needs please contact: Weatherization Technician Name/Phone number: Usha Bryan RN Ascom ~ [phone] Pager ~ [phone] RINARY PHARMACOLOGIST * Tiff Parker RN - 01/08/2016 1:08 PM CST Patient received M OM early am for need to defecate . Patient ate a reg breakfast and had physical therapy x 2 . Patient was instruct to call transportation because she was been release home. Patientwas seen by Dr. Nichols s nurse Tiff and Dr. Olson prior discharge. Patient retuerned to unit after she discovered her I V was in right hand ,removed and patient went home. RINARY PHARMACOLOGIST * Natividad Diamond MD - 01/08/2016 12:32 PM CST Hospitalist Progress Note Admit Date: 01/06/2016 6:16 AM Hospital Day: 2 Clinical Course/ New Symptoms Patient denies chest pain, shortness of breath, abdominal pain, diarrhea,urinary problems . Voided. Nicolasa po with no nausea or vomiting . Ambulating with PT Data Vitals: 01/07/16 1510 01/07/16 1904 01/08/16 0359 01/08/16 0750 BP: 100/56 135/83 116/52 117/64 Pulse: 67 107 91 95 Temp: 99.3 ??F 98.6 ??F 99 ??F 98.1 ??F Resp: 18 18 16 18 Weight: SpO2: 91% 92% 94% 93% Temp (30hrs) Max:99.3 ??F Intake/Output Summary (Last 24 hours) at 01/08/16 1232 Last data filed at 01/08/16 0808 Gross per 24 hour Intake: 360 ml Output: 900 ml Net : -540 ml My review of labs, imaging, notes and other tests is significant for Recent Labs Component Name 01/08/16 0137 01/07/16 0450 12/16/15 0933 WBC - - 6.1 HGB 10.8* 10.6* 12.8 HCT 33.6* 33.2* 39.9 PLTCOUNT - - 224 Recent Labs Component Name 12/16/15 0933 SODIUM 141 POTASSIUM 3.9 CHLORIDE 104 CO2 31 BUN 18 CREATININE 0.92 GLUCOSE 200* CALCIUM 8.9 MEDICATIONS FOR CURRENT ENCOUNTER: SCHEDULED MEDICATIONS: 0.9% NaCl injection 3 mL, Intracatheter, q8h aspirin (ASPIRIN) tablet 325 mg, Oral, BID celecoxib (CeleBREX) capsule 400 mg, Oral, QDAY hydrochlorothiazide (MICROZIDE) capsule 12.5 mg, Oral, QDAY iron polysaccharides (NIFEREX 150) capsule 150 mg, Oral, QDAY losartan (COZAAR) tablet 100 mg, Oral, QDAY morphine 1 mg/ml COMPLIANCE PROGRAM MANAGER, Intravenous, COMPLIANCE PROGRAM MANAGER ?? senna-docusate (SENOKOT-S) tablet 1 Tab, Oral, BID CONTINUOUS MEDICATIONS: ?? 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 Alert , moves all extremities against gravity Psych: mood and affect normal Assessment and Plan 1. DJD status post right TKA Post-op Day Hospital Day: 2 Continue PT per protocol . Encourage incentive spirometry at bedside. Follow post op orders. DVT prophylaxis as per surgeon 2. Acute Anemia. Secondary to expected blood loss. Monitor HH. No indication for transfusion at this time. 2.?? History of rheumatoid arthritis -the patient has already taken her weekly methotrexate\ She was asked to f/u with her spikemaking supervisor to determine if she needed to conitnue her meds 3. Hypertension:?? Resume Cozaar Monitor blood pressure and adjust medications as needed RINARY PHARMACOLOGIST * Tiff Ashley RN - 01/08/2016 11:05 AM CST Ortho Progress Note 01/08/2016 Awake and alert Afebrile Dressing knee c/d/i Pain controlled Up in chair Recent Labs Component Name 01/08/16 0137 01/07/16 0450 12/16/15 0933 HGB 10.8* 10.6* 12.8 HCT 33.6* 33.2* 39.9 Progressing with PT Discharge home Follow up in office 3 weeks RINARY PHARMACOLOGIST * Taniya Chatman PT - 01/08/2016 9:32 AM CST PT Treatment Summary Pt consents to therapy. Subjective: Pt sitting up in chair upon entry. Pt reports she is ready to go home. Pt educated in home safety and removal of throw rugs and obstacles. She is up in chair at end of session, cold pack to right knee. Needs within reach. Patient's Goal for the Day: To go home Pain Assessment: Pain Rating Score #: 1 (at rest; 2/10 with ambulation) Pain Location : Knee Pain Orientation: Right Pain Quality: Aching;Throbbing Bed Mobility: Supine to Sit: Complete Buchanan Sit to Supine: Modified Buchanan Transfers: Sit to Stand: Supervision, Set-Up, Cues (cues for technique, mod I p teaching) Stand to Sit: Modified Buchanan Mobility: Distance Ambulated: 220 FEET Ambulation: Assistive Device: Gait Belt;Walker-2 Wheeled Ambulation: Level of Assistance: Modified Buchanan Ambulation: Gait Deviations: Antalgic;[place] - Decreased;Heel Strike - Decreased;Push Off - Decreased Stairs: Number: 4 Stairs: Assistive Device: Gait Belt Stairs: Use of Rails: Both Stairs: Level of Assistance: Contact Guard Assist Curb: Assistive Device: Gait Belt;Walker-2 Wheeled Curb: Level of Assistance: Stand By Assist Balance: Standing - Dynamic: Good -;With Both Upper Extremity's Support Knee ROM ROM Terminal Knee Extension: (lacking 6 degrees) ROM Knee Flexion: 91 Assessment: Pt is progressing well with therapy. We reviewed HEP and issued handout. Right knee ROM 0-6-91 Recommendations: Recommend continued PT to address mobility and strengthening needs upon discharge from acute care. Patient left in reach of phone and call light. Please refer to the PT Treatment Report in the FiledFlowsheet for more detailed information. If this is the last PT visit, this note serves as the discharge summary. Taniya Luque DPT [phone] RINARY PHARMACOLOGIST * Taniya Chatman, PT - 01/08/2016 9:32 AM CST Problem: Mobility Goal: STG - Patient will ambulate 220 feet with wh walker and SBA of 1 Outcome: Goal Met Date Met: 01/08/16 Problem: Transfers Goal: STG - Patient to transfer to and from sit to supine independently Outcome: Goal Met Date Met: 01/08/16 Modified independent with knee ortho strap RINARY PHARMACOLOGIST * Liana Hauser RN - 01/08/2016 5:59 AM CST Vice President Of Software Engineering Summary: The patient has been in NAD during last evening and the night thus far. She has no c/o SOB, Chest Pain, and has no c/o paresthesia to the bilateral lower extremities. She is OOB with contact guard And use of her walker to the bathroom, and tolerated same well. She is impulsive at times and to provide safety for the patient, her bed alarm has been activated through out the night. She does c/o increased post operative discomfort to Right lower extremity when OOB and ambulating. Medicated with Reading 10 for discomfort and is satisfied with the resulting reduction in pain. Voiding without c/o difficulty. RINARY PHARMACOLOGIST * Liana Hauser RN - 01/08/2016 5:54 AM CST Problem: Pain/Discomfort Goal: Patient exhibits reduced pain/discomfort as evidenced by pain scores Outcome: Ongoing Problem: Pain/Discomfort Goal: Patient exhibits reduced pain/discomfort as evidenced by pain scores Outcome: Ongoing Patient will report reduction in post operative pain that is accectable To with the use of pharmacological and non pharmacological strategies ordered. Problem: Incision Care Goal: Incision remains intact with edges well approximated Outcome: Ongoing Problem: Incision Care Goal: Incision remains intact with edges well approximated Outcome: Ongoing The post operative incision remains c/d/i, with silver mepilex dressing, and observed per shift Patient will report s/s of abnormality to incision site to report to physician/staff Goal: Incision is free of infection. Outcome: Ongoing Incision site will remains free of s/s of infection as evidence by the absence of abnormal drainage, malodor, abnormal redness/swelling, and the absence of pain that is unable to be relieved. Problem: Fall Risk Goal: Patient will remain free of falls Outcome: Ongoing Hourly rounding Mrs Cedillo will not fall and will demonstrate proper use of Call light for any and all assistance.. Fall precautions will remain in effect RINARY PHARMACOLOGIST * Marguerite Daniels RN - 01/07/2016 4:59 PM CST Shift Summary Patient up with SBA and wheeled walker. Reading 10 given for pain control. No c/o nausea or vomiting.Voiding adequate amounts. Silver mepilex dressing clean, dry and intact. VSS. Anticipate possible discharge in the AM. Will continue to monitor. Marguerite Daniels RN RINARY PHARMACOLOGIST * Natividad Diamond MD - 01/07/2016 4:42 PM CST Hospitalist Progress Note Admit Date: 01/06/2016 6:16 AM Hospital Day: 1 Clinical Course/ New Symptoms Patient denies chest pain, shortness of breath, abdominal pain, diarrhea,urinary problems . Voided. Nicolasa po with no nausea or vomiting . Ambulating with PT Data Vitals: 01/07/16 0450 01/07/16 0830 01/07/16 1112 01/07/16 1510 BP: 112/54 117/62 100/56 Pulse: 81 68 67 Temp: 97.6 ??F 98.4 ??F 99.1 ??F 99.3 ??F Resp: 18 18 18 Weight: SpO2: 93% 91% 91% Temp (30hrs) Max:99.3 ??F Intake/Output Summary (Last 24 hours) at 01/07/16 1642 Last data filed at 01/07/16 0832 Gross per 24 hour Intake 1815 ml Output 700 ml Net 1115 ml My review of labs, imaging, notes and other tests is significant for Recent Labs Component Name 01/07/16 0450 12/16/15 0933 06/11/15 0509 WBC - 6.1 - HGB 10.6* 12.8 10.9* HCT 33.2* 39.9 33.3* PLTCOUNT - 224 - Recent Labs Component Name 12/16/15 0933 SODIUM 141 POTASSIUM 3.9 CHLORIDE 104 CO2 31 BUN 18 CREATININE 0.92 GLUCOSE 200* CALCIUM 8.9 MEDICATIONS FOR CURRENT ENCOUNTER: ?? SCHEDULED MEDICATIONS: ?? And ?? 0.9% NaCl injection 3 mL, Intracatheter, q8h ?? aspirin (ASPIRIN) tablet 325 mg, Oral, BID ?? celecoxib (CeleBREX) capsule 400 mg, Oral, QDAY ?? hydrochlorothiazide (MICROZIDE) capsule 12.5 mg, Oral, QDAY ?? iron polysaccharides (NIFEREX 150) capsule 150 mg, Oral, QDAY ?? losartan (COZAAR) tablet 100 mg, Oral, QDAY ?? morphine 1 mg/ml COMPLIANCE PROGRAM MANAGER, Intravenous, COMPLIANCE PROGRAM MANAGER ?? senna-docusate (SENOKOT-S) tablet 1 Tab, Oral, BID ?? [COMPLETED] ceFAZolin (ANCEF) IVPB 1 g, Intravenous, q8h ?? [COMPLETED] ceFAZolin (ANCEF) IVPB 1 g, Intravenous, q8h ?? [COMPLETED] oxyCODONE CR 12hr (OxyCONTIN) tablet 10 mg, Oral, q12h ?? [] ondansetron (ZOFRAN) injection 4 mg, Intravenous, q6h ?? CONTINUOUS MEDICATIONS: ?? lactated ringers infusion, Intravenous, Continuous ?? PRN MEDICATIONS: ?? Or ?? Or [...] tablet 1 Tab, Oral, q4h PRN ?? 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 Alert , moves all extremities against gravity Psych: mood and affect normal Assessment and Plan 1. DJD status post right TKA Post-op Day Hospital Day: 1 Continue PT per protocol . Encourage incentive spirometry at bedside. Follow post op orders. DVT prophylaxis as per surgeon 2. Acute Anemia. Secondary to expected blood loss. Monitor HH. No indication for transfusion at this time. 2.?? History of rheumatoid arthritis -the patient has already taken her weekly methotrexate\ 3. Hypertension:?? Resume Cozaar Monitor blood pressure and adjust medications as needed RINARY PHARMACOLOGIST * Tiff Ashley RN - 01/07/2016 3:09 PM CST Ortho Progress Note 01/07/2016 Awake and alert. Afebrile. Pain controlled. Dressing knee c/d/i. Continue physical therapy. Up in chair Recent Labs Component Name 01/07/16 0450 12/16/15 0933 06/11/15 0509 HGB 10.6* 12.8 10.9* HCT 33.2* 39.9 33.3* RINARY PHARMACOLOGIST * Alison Buchanan, PT - 01/07/2016 3:04 PM CST Patient was seen by PT this afternoon. Progressing well with PT. Right knee pain 5/10. Treatment: 1. 10 reps therapeutic exercises, per TKA protocol 2. Reviewed HEP 3. Transfers - supine to/from sit - modified independence with use of ortho strap - sit to/from stand - CGA of 1 4. Ambulated 150 feet with wh walker and CGA of 1; decreased belgica; antalgic gait pattern; decreased heel/toe gait pattern 5. Cold pack applied to right knee following treatment Patient remained supine following treatment with call light in reach. Bed alarm activated. RINARY PHARMACOLOGIST Alison Olea, PT - 01/07/2016 11:51 AM CST Patient was seen by PT this morning. Alert and oriented x 4. Right knee pain 3/10 Right knee ROM 0-4-52 degrees Treatment: 1. 10 reps therapeutic exercises, per TKA protocol 2. Reviewed HEP 3. Transfers - supine to/from sit to/from stand - CGA of 1 (use of ortho strap for supine to/from sit) 4. Ambulated 100 feet with wh walker and CGA of 1; decreased belgica; antalgic gait pattern 5. Cold pack applied to right knee following treatment Patient remained supine following treatment with call light in reach. RINARY PHARMACOLOGIST * Marguerite Daniels RN - 01/07/2016 9:46 AM CST Problem: Pain/Discomfort Goal: Patient exhibits reduced pain/discomfort as evidenced by pain scores Outcome: Ongoing Patient currently rates pain at 4/10. Functional goal is 5/10. Goal: Patient uses pharmacological and non-pharmacological pain management strategies. Outcome: Ongoing Patient taking PRN Reading 5 for pain control. Ice packs applied and extremity elevated PRN. Problem: Incision Care Goal: Incision remains intact with edges well approximated Outcome: Ongoing Unable to assess due to dressing. Silver mepilex dressing clean, dry and intact. Goal: Incision is free of infection. Outcome: Ongoing Unable to assess due to dressing. Silver mepilex dressing clean, dry and intact. Patient afebrile. Problem: Fall Risk Goal: Patient will remain free of falls Outcome: Ongoing Patient alert and oriented x 4. Up with SBA and wheeled walker. Call light within reach. AM * Usha Bryan RN - 01/07/2016 9:10 AM CST [facility] Case Management Initial Assessment Case Management screen completed, welcome letter given. Met with patient Lives with Lives with:: Spouse Prior Level of Functioning: IPTA Discharge Plan: Anticipated level of care / disposition at discharge: Home Health Care Comments: PT following patient hoping togo home tomorrow 01/08 Anticipated Discharge Date: Anticipated Discharge Date: 01/09/16 Anticipated level of care / disposition at discharge: Home Health Care Transportation at discharge: Transportation at discharge: Family () Transportation to MD appointments: Equipment at Home: Equipment At Home: Cane-Straight;Chair-Shower;Walker-2 Wheeled;Crutches-Standard;Steel Layer PCP: Francisco Long MD Physician Followup Appointment(s) Made: no Appointment(s) made with the following physician providers: Surgeon (02/01/16 @ 14:30 Dr. Nichols ) Reason why no appointment was made with physician: Appointment already made Pharmacy benefit: Yes. SW Referral: no LACE SCORE: If there is no score indicated, this patient has yet to be assessed for Readmission Risk. . If the patient has been assessed, the score is:Readmit Risk Score Total: 8 If patient requires HHC at discharge, he/she requests: Proposed Home Health Agency: *[facility] Int[facility] No additional discharge planning needs identified, I will continue to follow. For any questions or needs please contact: Usha Bryan RN Case Manager Ascom: [phone] Pager: [phone] RINARY PHARMACOLOGIST * Pricilla Maher RN - 01/06/2016 4:57 PM CST Shift summary: To floor at 1130. VS stable. Knee dressing is dry and intact. Incontinent of urine x1. Up at bedside with PT.Fair appetite, denies nausea. Pain has been minimal and using Morphine PCAprn. No respiratory distress, remains on capnography and oxygen. Will continue to monitor. Pricilla Maher RN RINARY PHARMACOLOGIST * Felicia Wolfe PT - 01/06/2016 4:45 PM CST PT Eval complete. Subjective: Pt and RN agree to therapy; alert and oriented x 4; s/p R TKR; Home Situation: Residence: Private Residence Lives with:: Spouse Steps to Enter: 4 Home Structure: One Story Equipment At Home: Cane-Straight;Chair-Shower;Walker-2 Wheeled Prior Level of Functioning: Mobility: Ambulate-In Home ;Ambulate-In Community;Independent;Without Assistive Device Fallen Within 6 Mos: No Activity at Home: Active Vitals: see flowsheet Physical Therapy Evaluation Summary for today: Pt educated in PT plan of care, fall precautions, and benefits of OOB activity. ROM: -15 ext to 70 flexion R knee. Pain Assessment: Pain Rating Score #: 5 Pain Location : Knee Pain Orientation: Right Pain Quality: Aching;Throbbing Bed Mobility: Supine to Sit: Minimal Assistance Sit to Supine: Minimal Assistance Transfers: Sit to Stand: Minimal Assistance Stand to Sit: Contact Guard Assist Mobility: Distance Ambulated: (few steps to commode) Ambulation: Assistive Device: Walker-2 Wheeled Ambulation: Level of Assistance: Contact Guard Assist Ambulation: Gait Deviations: Antalgic;Belgica - Decreased;Heel Strike - Decreased;Step Length - Decreased Balance: standing with walker F+ Reviwed TKR protocol followed by ice pack. PT Assessment: Problem list: Decreased strength, decreased balance, decreased endurance, decreased ROM Functional limitations: Decreased independence with ambulation/transfers, decreased safety with functional mobility Rationale for therapy: Patient will benefit from PT to address the above issues. Patient/family stated goal: to go home at d/c Please refer to Filed Flowsheet PT Evaluation for further details. Patient left in reach of call light and phone. SCDs and bed alarm activated. Recommendations:Recommend continued PT to address mobility and strengthening needs upon discharge from acute care. If this is the last PT visit, this note serves as the discharge summary. Deborah Wolfe, PT [phone] RINARY PHARMACOLOGIST * Dawna Joseph, [facility] - 01/06/2016 7:34 AM CST [facility] Pharmacy Clinical Services Admission Medication Review Jolene Cedillo is a 70 y.o. female I have reviewed patient's home medication list with the patient. The medication list review was before the physician has seen or acted upon, and is now ready for re-review/order by physician. Medication List Revisions The following medications were deleted, as patient is no longer taking: celecoxib, prednisone The following medications were modified: Methotrexate was changed from 2.5mg daily to 15 mg every 7days. Patient states she is no longer on prednisone. Thank you for the opportunity to take part of Jolene Cedillo's care. Dawna Joseph RP RINARY PHARMACOLOGIST documented in this encounter H&P Notes * Cornelio Alba PA-C - 01/05/2016 8:43 AM CST [facility] PRE-OPERATIVE HISTORY AND PHYSICAL PATIENT NAME: Jolene Cedillo : 1945 CSN: [id number] HISTORY OF PRESENT ILLNESS: This is a 70 y.o. year-old female seen at the office regarding her right knee. The right knee has been symptomatic for over several years. Radiograph shows end-stage tricompartmental DJD of the right knee with [id number] degenerative changes along medial joint line/varus. Patient is failing conservative treatment of corticosteroid injections, anti- inflammatories, andhas had a decline in overall activity. Interfering with going up and down steps and difficulty getting in and out of a chair. Also failing home exercise program. We are going to proceed ahead with a right knee replacement. We have discussed surgical procedure, risks, complications, and postoperative expectations associated with this procedure. PAST MEDICAL HISTORY: Past Medical History Diagnosis Date ??? HTN (hypertension) ??? Anemia, unspecified Anemia ??? Rheumatoid arthritis(714.0) Rheumatoid Arthritis PAST SURGICAL HISTORY: Past Surgical History Procedure Laterality Date ??? Knee arthroscopy bilateral ??? Knee replacement Left 06/09/2015 Left; LEFT TOTAL KNEE ARTHROPLASTY HOME MEDICATIONS: Prior to Admission medications Medication Sig Start Date End Date Taking? Authorizing Provider methotrexate 2.5 MG tablet Take 2.5 mg by mouth once daily 08/31/15 Annabelle Dumont MD predniSONE (DELTASONE) 10 MG tablet Take 10 mg by mouth once daily 08/20/15 Annabelle Dumont MD celecoxib (CELEBREX) 200 MG capsule TAKE 1 CAPSULE BY MOUTH TWICE DAILY WITH MORNING AND EVENING MEAL. 06/21/15 Alex Nichols MD ferrous sulfate 325 (65 FE) MG tablet Take 325 mg by mouth 3 times daily with meals Annabelle Dumont MD Other once daily [employer] [place] Supplement Instructed to stop 10 days before surgery Annabelle Dumont MD losartan-hydrochlorothiazide (HYZAAR) 100-12.5 MG tablet Take 1 Tab by mouth once daily. Provider, MD Annabelle No current facility-administered medications for this encounter. Current Outpatient Prescriptions Medication Sig Dispense Refill ??? methotrexate 2.5 MG tablet Take 2.5 mg by mouth once daily 3 ??? predniSONE (DELTASONE) 10 MG tablet Take 10 mg by mouth once daily 5 ??? celecoxib (CELEBREX) 200 MG capsule TAKE 1 CAPSULE BY MOUTH TWICE DAILY WITH MORNING AND EVENING MEAL. 60 Cap 1 ??? ferrous sulfate 325 (65 FE) MG tablet Take 325 mg by mouth 3 times daily with meals ??? Other once daily [employer] [place] Supplement Instructed to stop 10 days before surgery ??? losartan-hydrochlorothiazide (HYZAAR) 100-12.5 MG tablet Take 1 Tab by mouth once daily. ALLERGIES: No Known Allergies PHYSICAL EXAMINATION: HEENT: Head normocephalic and atraumatic. Eyes, PERRLA. EOMs normal. NECK: Supple. Negative adenopathy. No bruits. LUNGS: Clear. HEART: Normal S1 and S2. ABDOMEN: Soft and nondistended. Positive bowel sounds in all quadrants. EXTREMITIES: Neurovascularly intact distally. Equal bilaterally in upper and lower extremities. MUSCULOSKELETAL: Good range of motion of the hips. Right knee, varus knee with medial and lateral joint line crepitation, clicking, mid flexion instability with motion of 4-112. NEUROLOGICAL: Within normal limits. MENTAL: Within normal limits. DIAGNOSTIC DATA: Radiographs of the right knee, end-stage tricompartmental DJD of the right knee with rihs-lm-tusc degenerative changes along medial joint line/varus. IMPRESSION: End stage degenerative joint disease of the right knee, failing conservative treatment of corticosteroid injections, anti-inflammatories, decline in overall activity as well as failing home exercise program. PLAN: We are going to proceed ahead with a right total knee replacement. We have discussed with thepatient surgical procedure, risks, complications, and postoperative expectations associated with this. Cornelio Alba PA-C RINARY PHARMACOLOGIST documented in this encounter Consult Notes * Natividad Diamond MD - 01/06/2016 3:55 PM CST Initial Hospitalist Consult Note Date of Consult: 01/06/2016 Patient's Primary Care Physician: Francisco Long MD Physician Requesting Consult: Alex Nichols MD Reason for Consultation: Evaluation of patient's medical problems, which include hypertension and rheumatoid arthritis Name: Jolene Cedillo Age: 70 y.o. Sex: female Chief Complaint/History of Present Illness Patient is , a 70 y.o. female, who has been [facility] after a successfulright TKA under Spinal anaesthesia. Pt's right knee has been symptomatic for a long time , aggravated with activity and patient was reportedly failing conservative management. Pt is awake and alert , denies any CP, SOB, palpitations . Has no cough, hemoptysis, Denies nausea, vomiting ,abdominal pain, Has no fever or chills, rash , flank pain , Has no lightheadedness, dizziness, no headache, blurred vision /diplopia, photophobia or tingling/numbness . Past Medical History Diagnosis Date ??? HTN (hypertension) ??? Anemia, unspecified Anemia ??? Rheumatoid arthritis(714.0) Rheumatoid Arthritis Past Surgical History Procedure Laterality Date ??? Knee arthroscopy bilateral ??? Knee replacement Left 06/09/2015 Left; LEFT TOTAL KNEE ARTHROPLASTY ??? Knee arthroplasty Right 01/06/16 Family History Problem Relation Age of Onset ??? Family history unknown: Yes Social History Occupational History ??? Not on file. Social History Main Topics ??? Smoking status: Never Smoker ??? Smokeless tobacco: Never Used ??? Alcohol Use: No ??? Drug Use: No ??? Sexual Activity: Not on file Prescriptions prior to admission Medication Sig Dispense Refill ??? methotrexate 2.5 MG tablet Take 15 mg by mouth every 7 days 3 ??? losartan-hydrochlorothiazide (HYZAAR) 100-12.5 MG tablet Take 1 Tab by mouth once daily. ??? ferrous sulfate 325 (65 FE) MG tablet Take 325 mg by mouth daily with breakfast ??? Other once daily [employer] [place] Supplement Instructed to stop 10 days before surgery No Known Allergies Review of Systems A 14 point review of systems was reviewed and was negative except as described in HPI. Exam Vitals: 01/06/16 1130 01/06/16 1155 01/06/16 1325 01/06/16 1403 BP: 166/80 147/76 124/74 124/60 Pulse: 69 73 88 74 Temp: 97.1 ??F 97 ??F 97 ??F 97.5 ??F Resp: Weight: SpO2: 96% 97% 97% 96% General appearance: alert, cooperative, no distress CVS: regular rhythm, normal S1 and S2, without murmurs, rubs or gallops PULM : breath sounds normal and symmetric; no rales or wheezes GI: soft without mass, non-tender, with normal bowel sounds MSK: no clubbing, cyanosis or edema [employer] SAF[employer]. Alert , No facial assymetry, clear speech. No focal motor deficts Psych: has normal mood and affect SKIN: No rash,incision + Data I have reviewed the patient's labs and the review is significant for: Recent Labs Component Name 12/16/15 0933 06/11/15 0509 06/10/15 0113 WBC 6.1 - - HGB 12.8 10.9* 11.6* HCT 39.9 33.3* 35.1* PLTCOUNT 224 - - Recent Labs Component Name 12/16/15 0933 SODIUM 141 POTASSIUM 3.9 CHLORIDE 104 CO2 31 BUN 18 CREATININE 0.92 GLUCOSE 200* CALCIUM 8.9 Assessment and Plan Records available in chart ( paper and electronic) were reviewed. Home medications were reviewed 1. Post-op Day Hospital Day: 0 Follow post op orders. Initiate PT per protocol DVT prophylaxis to continue with SCD and chemoprophylaxis per surgeon preference. GI prophylaxis to continue with H2 blockers or Proton Pump inhibitors Encourage incentive spirometry at bedside. 2. History of rheumatoid arthritis -the patient has already taken her weekly methotrexate\ 3. Hypertension: Resume Cozaar Monitor blood pressure and adjust medications as needed Treatment plan discussed with patient at bedside. All questions were answered. Orders placed in chart. CC: Francisco Long MD, Alex Nichols MD RINARY PHARMACOLOGIST documented in this encounter OR Notes * Operative - Alex Nichols MD - 01/06/2016 9:28 AM CST Operative Report Right Total Knee [facility] 1945 [id number] ADMIT DATE: 01/06/2016 DATE OF SURGERY: 01/06/2016 PHYSICIAN: Alex Nichols MD SURGEON: Alex Nichols MD DELIMBER OPERATOR: Alix IRAHETA The skilled assistance of the PA-C was necessary for the effective and successful completion of this case. The physician compounding assistant was essential for the proper positioning, manipulation of instruments, proper exposure, manipulation of tissue and wound closure. PREOPERATIVE DIAGNOSIS: Degenerative joint disease, right knee. POSTOPERATIVE DIAGNOSIS: Degenerative joint disease, right knee. PROCEDURE: Right Total Knee Arthroplasty with the Mini-Subvastus Approach. TYPE OF ANESTHESIA: Spinal DESCRIPTION OF PROCEDURE: The patient was brought into the operating room and placed under spinal anesthetic. The right lower extremity was placed under tourniquet control, [...] distal femur and this was sized to 67.5. The anterior, posterior chamfer cuts were created. The intercondylar box cut was created. Attention was placed on the proximal tibia. An intermedullary alignment khushbu was used to make a 90-90 cut off the superior aspect of the tibia. This was sized to a 71 component. A trial reduction showed excellent stability with a 12 poly trial. The patella reamed down for a XS patellar component. The tibia was finished off for an I-beam component. The bony cut surfaces were pulsatile evacuated. The cement was mixed and digitally pressurizedinto the tibia, femur and patella. As each component was placed, excess bone cement was removed. The knee was brought into full extension with a 12 poly trial to allow the cement to cure under compression. The knee was copiously irrigated. Electrocautery was used for hemostasis. A combination of Marcaine, epinephrine and morphine was injected outside the capsule. The final 12 poly was selected, placed and locked into position. The knee was taken through a stable range of motion. The extensor mec hanism was closed over a reinfusion drain with #1 Vicryl. The skin was reapproximated with 2-0 Vicryl and closed with lucy. A bulky dressing and Cryo-Cuff were applied. The patient was awakened and taken to recovery in stable condition. Drains: Reinfusion Drain EBL: Minimal Specimens Removed: None Disposition: PACU Complications: None Alex Nichols MD RINARY PHARMACOLOGIST documented in this encounter Plan of Treatment Not on file documented as of this encounter Procedures Procedure Name Priority Date/Time Associated Diagnosis Comments HGB HCT PANEL AM Draw 01/08/2016 1:37 AM VETERINARY PHARMACOLOGIST HGB HCT PANEL AM Draw 01/07/2016 4:50 AM VETERINARY PHARMACOLOGIST ARTHROPLASTY TOTAL KNEE 01/06/2016 7:39 AM VETERINARY PHARMACOLOGIST Special Needs BIOMET (CAMILO) NOTIFIED-NB documented in this encounter Results * (ABNORMAL) HGB HCT PANEL (01/08/2016 1:37 AM VETERINARY PHARMACOLOGIST) Hemoglobin 10.8(L) 12.0 - 15.6 gm/dL 01/08/2016 1:58 AM VETERINARY PHARMACOLOGIST [facility] Hematocrit 33.6(L) 35.9 - 45.5 % 01/08/2016 1:58 AM VETERINARY PHARMACOLOGIST [facility] Blood BLOOD SPECIMEN / Unknown 01/08/2016 1:37 AM VETERINARY PHARMACOLOGIST 01/08/2016 1:55 AM VETERINARY PHARMACOLOGIST Alex Nichols MD LAB - HEMATOLOGY ORD ERABLES [facility] [address] [place] [address] * (ABNORMAL) HGB HCT PANEL (01/07/2016 4:50 AM VETERINARY PHARMACOLOGIST) Hemoglobin 10.6(L) 12.0 - 15.6 gm/dL 01/07/2016 5:21 AM VETERINARY PHARMACOLOGIST [facility] Hematocrit 33.2(L) 35.9 - 45.5 % 01/07/2016 5:21 AM VETERINARY PHARMACOLOGIST [facility] Blood BLOOD SPECIMEN / Unknown 01/07/2016 4:50 AM VETERINARY PHARMACOLOGIST 01/07/2016 5:01 AM VETERINARY PHARMACOLOGIST Alex Nichols MD LAB - HEMATOLOGY ORD ERABLES [facility] [address] [place] [id number] documented in this encounter Visit Diagnoses Diagnosis Osteoarthrosis, unspecified whether generalized or localized, involving lower leg- Primary documented in this encounter Administered Medications Inactive Administered Medications - up to 3 most recent administrations Medication Order MAR Action Action Date Dose Rate Site 0.9% NaCl injection 3 mL 3 mL, Intracatheter, EVERY 8 HOURS, First dose on Sun01/07/16 at 0600, Until Discontinued, Post-op $ Given 01/08/2016 7:04 AM VETERINARY PHARMACOLOGIST 3 mL $ Given 01/07/2016 8:39 PM VETERINARY PHARMACOLOGIST 3 mL $ Given 01/07/2016 1:43 PM VETERINARY PHARMACOLOGIST 3 mL acetaminophen (TYLENOL) tablet 1,000 mg 1,000 mg, Oral, PRE-OP ONCE, 1 dose, On Sun01/06/16 at 0706, Pre-op $ Given 01/06/2016 7:14 AM VETERINARY PHARMACOLOGIST 1,000 mg aspirin (ASPIRIN) tablet 325 mg 325 mg, Oral, 2 TIMES DAILY, First dose (after last modification) on Sun01/07/16 at 0900, Until Discontinued, VTE PROPHYLAXIS, Post-op $ Given 01/08/2016 9:45 AM VETERINARY PHARMACOLOGIST 325 mg $ Given 01/07/2016 8:38 PM VETERINARY PHARMACOLOGIST 325 mg $ Given 01/07/2016 9:27 AM VETERINARY PHARMACOLOGIST 325 mg ceFAZolin (ANCEF) IVPB 1 g 1 g, at 100 mL/hr, Intravenous, EVERY 8 HOURS, 2 doses, First dose on Sun01/06/16 at 1400, Last dose on Sun01/06/16 at 2200, Total dose 2gm. Give two 1gm doses. $ Given 01/06/2016 9:41 PM VETERINARY PHARMACOLOGIST 1 g 100 mL/hr $ Given 01/06/2016 1:53 PM VETERINARY PHARMACOLOGIST 1 g 100 mL/hr ceFAZolin (ANCEF) IVPB 1 g 1 g, at 100 mL/hr, Intravenous, EVERY 8 HOURS, 2 doses, First dose on Sun01/06/16 at 1430, Last dose on Sun01/06/16 at 2230, Total dose 2gm. Give two 1gm doses. $ Given 01/06/2016 10:47 PM VETERINARY PHARMACOLOGIST 1 g 100 mL/hr $ Given 01/06/2016 2:25 PM VETERINARY PHARMACOLOGIST 1 g 100 mL/hr celecoxib (CeleBREX) capsule 400 mg 400 mg, Oral, PRE-OP ONCE, 1 dose, On Sun01/06/16 at 0706, Pre-op $ Given 01/06/2016 7:15 AM VETERINARY PHARMACOLOGIST 400 mg celecoxib (CeleBREX) capsule 400 mg 400 mg, Oral, DAILY, First dose on Sun01/07/16 at 0900, Until Discontinued, Post-op $ Given 01/08/2016 9:45 AM VETERINARY PHARMACOLOGIST 400 mg $ Given 01/07/2016 9:27 AM VETERINARY PHARMACOLOGIST 400 mg famotidine (PEPCID) tablet 20 mg 20 mg, Oral, PRE-OP ONCE, 1 dose, On Sun01/06/16 at 0717, Pre-op $ Given 01/06/2016 7:17 AM VETERINARY PHARMACOLOGIST 20 mg famotidine (PEPCID) tablet 20 mg 20 mg, Oral, 2 TIMES DAILY PRN, Heartburn, Starting on Piedad 01/06/16 at 1124, Until 01/08/16 at 1405, Post-op $ Given 01/08/2016 11:27 AM VETERINARY PHARMACOLOGIST 20 mg hydrochlorothiazide (MICROZIDE) capsule 12.5 mg 12.5 mg, Oral, DAILY, First dose on Sun01/06/16 at 1415, Until Discontinued $ Given 01/08/2016 9:45 AM VETERINARY PHARMACOLOGIST 12.5 mg $ Given 01/06/2016 9:41 PM VETERINARY PHARMACOLOGIST 12.5 mg hydrocodone-acetaminophen (NORCO) 10-325 MG tablet 1 Tab 1 tablet, Oral, EVERY 4 HOURS PRN, Severe Pain, Starting on Piedad 01/06/16 at 1124, Until 01/08/16 at 1405, Post-op $ Given 01/08/2016 7:04 AM VETERINARY PHARMACOLOGIST 1 tablet $ Given 01/08/2016 1:29 AM VETERINARY PHARMACOLOGIST 1 tablet $ Given 01/07/2016 8:38 PM VETERINARY PHARMACOLOGIST 1 tablet hydrocodone-acetaminophen (NORCO) 5-325 MG tablet 1 Tab 1 tablet, Oral, EVERY 4 HOURS PRN, Moderate Pain, or for pain prior to painful procedures/therapy, Starting on Piedad 01/06/16 at 1124, Until 01/08/16 at 1405, Post-op $ Given 01/07/2016 9:26 AM VETERINARY PHARMACOLOGIST 1 tablet $ Given 01/07/2016 4:52 AM VETERINARY PHARMACOLOGIST 1 tablet iron polysaccharides (NIFEREX 150) capsule 150 mg 150 mg, Oral, DAILY, First dose on Piedad 01/06/16 at 1400, Until Discontinued $ Given 01/08/2016 9:45 AM VETERINARY PHARMACOLOGIST 150 mg $ Given 01/07/2016 9:27 AM VETERINARY PHARMACOLOGIST 150 mg lactated ringers infusion at 20 mL/hr, Intravenous, PRE-OP CONTINUOUS, Starting on Piedad 01/06/16 at 0715, Until Piedad 01/06/16 at 1124, Pre-op $ New Bag/Syringe 01/06/2016 7:13 AM VETERINARY PHARMACOLOGIST 20 mL/hr lactated ringers infusion at 100 mL/hr, Intravenous, CONTINUOUS, Starting on Piedad 01/06/16 at 1130, Until 01/08/16 at 1405, Post-op $ New Bag/Syringe 01/06/2016 8:07 PM VETERINARY PHARMACOLOGIST 100 mL/hr lidocaine buffered 1 % injection Infiltration, PRE-OP MULTIPLE, 3 doses, Starting on Piedad 01/06/16 at 0706, Until Piedad 01/06/16 at 1124, May be used (0.2 ml locally to anesthetize prior to insertion if patient has NKA to Lidocaine)., Pre-op $ Given 01/06/2016 7:13 AM VETERINARY PHARMACOLOGIST 0.5 mL losartan (COZAAR) tablet 100 mg 100 mg, Oral, DAILY, First dose on Piedad 01/06/16 at 1400, Until Discontinued, Hold for BP less than 120/80 $ Given 01/06/2016 9:46 PM VETERINARY PHARMACOLOGIST 100 mg magnesium hydroxide (MILK OF MAGNESIA) suspension 30 mL 30 mL, Oral, PRN, Constipation, Starting on Piedad 01/06/16 at 1124, Until 01/08/16 at 1405, Use MOM first. If MOM ineffective then use bisacodyl. If bisacodyl ineffective use Fleets enema. Shake well before using., Post-op $ Given 01/08/2016 7:05 AM VETERINARY PHARMACOLOGIST 30 mL morphine 1 mg/ml COMPLIANCE PROGRAM MANAGER Intravenous, COMPLIANCE PROGRAM MANAGER, Starting on Piedad 01/06/16 at 1009, Until 01/08/16 at 1405, COMPLIANCE PROGRAM MANAGER Dose: 1 mg dose with 12 min lockout (5 mg/hr) Contact physician if respiratory rate falls below 10/minute. If respiratory rate < 7/min administer naloxone (Narcan) 0.2 mg IV STAT, begin oxygen at 4-10 LPM, STOP COMPLIANCE PROGRAM MANAGER immediately, and contact physician., Post-op $ New Bag/Syringe 01/06/2016 10:20 AM VETERINARY PHARMACOLOGIST 1 mg ondansetron (disintegrating) (ZOFRAN ODT) tablet 4 mg 4 mg, Oral, PRE-OP ONCE, 1 dose, On Piedad 01/06/16 at 0706, Pre-op $ Given 01/06/2016 7:14 AM VETERINARY PHARMACOLOGIST 4 mg ondansetron (ZOFRAN) injection 4 mg 4 mg, Intravenous, EVERY 6 HOURS, 3 doses, First dose on Piedad 01/06/16 at 1530, Last dose on Sun01/07/16 at 0000, Post-op $ Given 01/06/2016 5:05 PM VETERINARY PHARMACOLOGIST 4 mg oxyCODONE CR 12hr (OxyCONTIN) tablet 10 mg 10 mg, Oral, EVERY 12 HOURS, 2 doses, First dose on Piedad 01/06/16 at 2100, Last dose on Sun01/07/16 at 0900, Administer 10 hours post-op and morning of POD# Do not crush, chew, or cut in half., Post-op $ Given 01/07/2016 9:26 AM VETERINARY PHARMACOLOGIST 10 mg $ Given 01/06/2016 9:40 PM VETERINARY PHARMACOLOGIST 10 mg oxyCODONE CR 12hr (OxyCONTIN) tablet 20 mg 20 mg, Oral, PRE-OP ONCE, 1 dose, On Piedad 01/06/16 at 0706, Do not crush, chew, or cut in half., Pre-op $ Given 01/06/2016 7:13 AM VETERINARY PHARMACOLOGIST 20 mg scopolamine (TRANSDERM-SCOP) 1.5 MG patch 1.5 mg 1.5 mg, Administer over 72 Hours, PRE-OP ONCE, 1 dose, On Piedad 01/06/16 at 0706, Apply patch behind the ear, do not cut patch, only 1 patch should be worn at a time and remove old patch before applying new patch.This patch may contain metal and is not compatible with MRI. Notify radiology of patch location upon arrival to MRI. $ Applied 01/06/2016 7:15 AM VETERINARY PHARMACOLOGIST 1.5 mg Behind Left Ear senna-docusate (SENOKOT-S) tablet 1 Tab 1 tablet, Oral, 2 TIMES DAILY, First dose on Sun01/06/16 at 1130, Until Discontinued, Post-op $ Given 01/08/2016 9:45 AM VETERINARY PHARMACOLOGIST 1 tablet $ Given 01/07/2016 8:38 PM VETERINARY PHARMACOLOGIST 1 tablet $ Given 01/07/2016 9:26 AM VETERINARY PHARMACOLOGIST 1 tablet tranexamic acid (CYKLOKAPRON) bolus 1,000 mg 1,000 mg, at 200 mL/hr, Intravenous, POST-OP ONCE, 1 dose, On Sun01/06/16 at 1100 $ Given 01/06/2016 11:11 AM VETERINARY PHARMACOLOGIST 1,000 mg 2 00 mL/hr documented in this encounter Active and Recently Administered Medications Times are shown in VETERINARY PHARMACOLOGIST. Scheduled Medication Order 01/06/2016 01/07/2016 01/08/2016 0.9% NaCl injection 3 mL (CANCELED) 3 mL, Intracatheter, EVERY 8 HOURS, First dose on Sun01/07/16 at 0600, Until Discontinued, Post-op 0658 ($ Given - Provider: Francia Otero RN)1343 ($ Given - Provider: Marguerite Daniels, TAO)2039 ($ Given - Provider: Liana Hauser, TAO) 0704 ($ Given - Provider: Liana Hauser, TAO) acetaminophen (TYLENOL) tablet 1,000 mg (COMPLETED) 1,000 mg, Oral, PRE-OP ONCE, 1 dose, On Sun01/06/16 at 0706, Pre-op 0714 ($ Given - Provider: Yuli Cline, TAO) aspirin (ASPIRIN) tablet 325 mg 325 mg, Oral, 2 TIMES DAILY, First dose (after last modification) on Sun01/07/16 at 0900, Until Discontinued, VTE PROPHYLAXIS, Post-op 0927 ($ Given - Provider: Marguerite Daniels, TAO)2038 ($ Given - Provider: Liana Hauser, TAO) 0945 ($ Given - Provider: Myrna Aaron RN) ceFAZolin (ANCEF) IVPB 1 g (COMPLETED)(Linked Group 1) 1 g, at 100 mL/hr, Intravenous, EVERY 8 HOURS, 2 doses, First dose on Sun01/06/16 at 1400, Last dose on Sun01/06/16 at 2200, Total dose 2gm. Give two 1gm doses. 1353 ($ Given - Provider: Pricilla Maher RN)1423 (Rx Stopped - Provider: Pricilla Maher RN)214 ($ Given - Provider: Francia Otero, TAO)221 (Rx Stopped - Provider: Francia Otero, TAO) ceFAZolin (ANCEF) IVPB 1 g (COMPLETED)(Linked Group 1) 1 g, at 100 mL/hr, Intravenous, EVERY 8 HOURS, 2 doses, First dose on Sun01/06/16 at 1430, Last dose on Sun01/06/16 at 2230, Total dose 2gm. Give two 1gm doses. 1425 ($ Given - Provider: Pricilla Maher RN)1455 (Rx Stopped - Provider: Pricilla Maher RN)2247 ($ Given - Provider: Cynthia Eller RN)2317 (Rx Stopped - Provider: Francia Otero RN) celecoxib (CeleBREX) capsule 400 mg (COMPLETED) 400 mg, Oral, PRE-OP ONCE, 1 dose, On Sun01/06/16 at 0706, Pre-op 0715 ($ Given - Provider: Yuli Cline RN) celecoxib (CeleBREX) capsule 400 mg (CANCELED) 400 mg, Oral, DAILY, First dose on Sun01/07/16 at 0900, Until Discontinued, Post-op 0927 ($ Given - Provider: Marguerite Daniels RN) 0945 ($ Given - Provider: Myrna Aaron RN) famotidine (PEPCID) tablet 20 mg (COMPLETED) 20 mg, Oral, PRE-OP ONCE, 1 dose, On Sun01/06/16 at 0717, Pre-op 0717 ($ Given - Provider: Yuli Cline, TAO) hydrochlorothiazide (MICROZIDE) capsule 12.5 mg (CANCELED) 12.5 mg, Oral, DAILY, First dose on Sun01/06/16 at 1415, Until Discontinued 2140 ($ Given - Provider: Francia Otero, TAO)214 (Not Administered - Provider: Francia Otero RN - Reason: Documented on duplicate row) 0928 (Not Administered - Provider: Marguerite Daniels RN - Reason: See Comments - Comment: Blood pressure 112/54) 0945 ($ Given - Provider: Myrna Aaron, RN) iron polysaccharides (NIFEREX 150) capsule 150 mg (CANCELED) 150 mg, Oral, DAILY, First dose on Piedad 01/06/16 at 1400, Until Discontinued 1400 (Not Administered - Provider: Pricilla Maher RN - Reason: Vomiting) 0927 ($ Given - Provider: Marguerite Daniels RN) 0945 ($ Given - Provider: Myrna Aaron, TAO) lidocaine buffered 1 % injection (CANCELED) Infiltration, PRE-OP MULTIPLE, 3 doses, Starting on Piedad 01/06/16 at 0706, Until Piedad 01/06/16 at 1124, May be used (0.2 ml locally to anesthetize prior to insertion if patient has NKA to Lidocaine)., Pre-op 0713 ($ Given - Provider: Yuli Cline RN) losartan (COZAAR) tablet 100 mg (CANCELED) 100 mg, Oral, DAILY, First dose on Piedad 01/06/16 at 1400, Until Discontinued, Hold for BP less than 120/80 2146 ($ Given - Provider: Francia Otero RN) 0928 (Not Administered - Provider: Marguerite Daniels RN - Reason: See Comments - Comment: Order parameters not met.) 0900 (Not Administered - Provider: Myrna Aaron RN - Reason: Per Administration Instructions) ondansetron (disintegrating) (ZOFRAN ODT) tablet 4 mg (COMPLETED) 4 mg, Oral, PRE-OP ONCE, 1 dose, On Piedad 01/06/16 at 0706, Pre-op 0714 ($ Given - Provider: Yuli Cline RN) ondansetron (ZOFRAN) injection 4 mg ()(Linked Group 2) 4 mg, Intravenous, EVERY 6 HOURS, 3 doses, First dose on Piedad 01/06/16 at 1530, Last dose on Sun01/07/16 at 0000, Post-op 1530 (Not Administered - Provider: Pricilla Maher RN - Reason: Per Administration Instructions - Comment: also due 1800)1705 ($ Given - Provider: Pricilla Maher RN) 0000 (Not Administered - Provider: Francia Otero, TAO - Reason: See Comments - Comment: asleep no n/v reported or noted) oxyCODONE CR 12hr (OxyCONTIN) tablet 10 mg (COMPLETED) 10 mg, Oral, EVERY 12 HOURS, 2 doses, First dose on Piedad 01/06/16 at 2100, Last dose on Sun01/07/16 at 0900, Administer 10 hours post-op and morning of POD# Do not crush, chew, or cut in half., Post-op 2139 ($ Given - Provider: Francia Otero, TAO) 09 ($ Given - Provider: Marguerite Daniels, TAO) oxyCODONE CR 12hr (OxyCONTIN) tablet 20 mg (COMPLETED) 20 mg, Oral, PRE-OP ONCE, 1 dose, On Piedad 01/06/16 at 0706, Do not crush, chew, or cut in half., Pre-op 07 ($ Given - Provider: Yuli Cline RN) scopolamine (TRANSDERM-SCOP) 1.5 MG patch 1.5 mg (CANCELED) 1.5 mg, Administer over 72 Hours, PRE-OP ONCE, 1 dose, On Piedad 01/06/16 at 0706, Apply patch behind the ear, do not cut patch, only 1 patch should be worn at a time and remove old patch before applying new patch.This patch may contain metal and is not compatible with MRI. Notify radiology of patch location upon arrival to MRI. 0715 ($ Applied - Provider: Yuli Cline RN) senna-docusate (SENOKOT-S) tablet 1 Tab (CANCELED) 1 tablet, Oral, 2 TIMES DAILY, First dose on Piedad 01/06/16 at 1130, Until Discontinued, Post-op 1130 (Not Administered - Provider: Pricilla Maher RN - Reason: Per Administration Instructions)2139 ($ Given - Provider: Francia Otero, TAO) 0926 ($ Given - Provider: Marguerite Daniels, TAO)2037 ($ Given - Provider: Liana Hauser RN) 0945 ($ Given - Provider: Myrna J Galen, RN) tranexamic acid (CYKLOKAPRON) bolus 1,000 mg (COMPLETED) 1,000 mg, at 200 mL/hr, Intravenous, POST-OP ONCE, 1 dose, On Piedad 01/06/16 at 1100 1111 ($ Given - Provider: Carrol Singh RN)1126 (Rx Stopped - Provider: Pricilla Maher RN - Comment: stopped in pacu.) Continuous Medication Order 01/06/2016 01/07/2016 01/08/2016 lactated ringers infusion (CANCELED) at 20 mL/hr, Intravenous, PRE-OP CONTINUOUS, Starting on Piedad 01/06/16 at 0715, Until Piedad 01/06/16 at 1124, Pre-op 0713 ($ New Bag/Syringe - Provider: Yuli Cline RN) lactated ringers infusion (CANCELED) at 100 mL/hr, Intravenous, CONTINUOUS, Starting on Piedad 01/06/16 at 1130, Until 01/08/16 at 1405, Post-op 2007 ($ New Bag/Syringe - Provider: Cynthia Eller RN) morphine 1 mg/ml COMPLIANCE PROGRAM MANAGER (CANCELED) Intravenous, COMPLIANCE PROGRAM MANAGER, Starting on Piedad 01/06/16 at 1009, Until 01/08/16 at 1405, COMPLIANCE PROGRAM MANAGER Dose: 1 mg dose with 12 min lockout (5 mg/hr) Contact physician if respiratory rate falls below 10/minute. If respiratory rate < 7/min administer naloxone (Narcan) 0.2 mg IV STAT, begin oxygen at 4-10 LPM, STOP COMPLIANCE PROGRAM MANAGER immediately, and contact physician., Post-op 1020 ($ New Bag/Syringe - Provider: Carrol Singh RN) PRN Medication Order 01/06/2016 01/07/2016 01/08/2016 bupivacaine PF (MARCAINE PF) 0.25 % injection (CANCELED) PRN, Starting on Piedad 01/06/16 at 0831, Until Piedad 01/06/16 at 0935, Intra-op 0831 ($ Given - Provider: Alex Nichols MD) famotidine (PEPCID) tablet 20 mg 20 mg, Oral, 2 TIMES DAILY PRN, Heartburn, Starting on Piedad 01/06/16 at 1124, Until 01/08/16 at 1405, Post-op 1127 ($ Given - Provider: Tiff Parker RN) hydrocodone-acetaminop hen (NORCO) 10-325 MG tablet 1 Tab 1 tablet, Oral, EVERY 4 HOURS PRN, Severe Pain, Starting on Piedad 01/06/16 at 1124, Until 01/08/16 at 1405, Post-op 1343 ($ Given - Provider: Marguerite Daniels, TAO)2038 ($ Given - Provider: Liana Hauser RN) 0129 ($ Given - Provider: Liana Hauser RN)0704 ($ Given - Provider: Liana Hauser RN) hydrocodone-acetaminop hen (NORCO) 5-325 MG tablet 1 Tab (CANCELED) 1 tablet, Oral, EVERY 4 HOURS PRN, Moderate Pain, or for pain prior to painful procedures/therapy, Starting on Piedad 01/06/16 at 1124, Until 01/08/16 at 1405, Post-op 0452 ($ Given - Provider: Francia Otero RN)0926 ($ Given - Provider: Marguerite Daniels RN) magnesium hydroxide (MILK OF MAGNESIA) suspension 30 mL (CANCELED)(Linked Group 3) 30 mL, Oral, PRN, Constipation, Starting on Piedad 01/06/16 at 1124, Until 01/08/16 at 1405, Use MOM first. If MOM ineffective then use bisacodyl. If bisacodyl ineffective use Fleets enema. Shake well before using., Post-op 0705 ($ Given - Provider: Liana Hauser RN) morphine (PF) injection (CANCELED) PRN, Starting on Piedad 01/06/16 at 0831, Until Piedad 01/06/16 at 0935, Intra-op 0831 ($ Given - Provider: Alex Nichols MD) polymyxin B 500,000 Units, bacitracin 50,000 Units in NaCl 0.9 % 1,000 mL irrigation (CANCELED) PRN, Starting on Piedad 01/06/16 at 0831, Until Piedad 01/06/16 at 0935, Intra-op 0831 ($ Given - Provider: Alex Nichols MD) vancomycin (VANCOCIN) injection (CANCELED) PRN, Starting on Piedad 01/06/16 at 0831, Until Piedad 01/06/16 at 0935, Intra-op 0831 ($ Given - Provider: Alex Nichols MD - Comment: placed in knee incision prior to closing) Linked Groups Order Group 1: ceFAZolin (ANCEF) IVPB 1 g (COMPLETED)Jump to med 1 g, at 100 mL/hr, Intravenous, EVERY 8 HOURS, 2 doses, First dose on Sun01/06/16 at 1400, Last dose on Sun01/06/16 at 2200, Total dose 2gm. Give two 1gm doses. And ceFAZolin (ANCEF) IVPB 1 g (COMPLETED)Jump to med 1 g, at 100 mL/hr, Intravenous, EVERY 8 HOURS, 2 doses, First dose on Piedad 01/06/16 at 1430, Last dose on Piedad 01/06/16 at 2230, Total dose 2gm. Give two 1gm doses. Group 2: ondansetron (ZOFRAN) injection 4 mg ()Jump to med 4 mg, Intravenous, EVERY 6 HOURS, 3 doses, First dose on Piedad 01/06/16 at 1530, Last dose on Sun01/07/16 at 0000, Post-op Followed by ondansetron (ZOFRAN) injection 4-8 mg (CANCELED) 4-8 mg, Intravenous, EVERY 6 HOURS PRN, Nausea/Vomiting, Starting on Sun01/07/16 at 0600, Until 01/08/16 at 1405, Start with 4 mg. May increase to 8 mg if no relief., Post-op Group 3: magnesium hydroxide (MILK OF MAGNESIA) suspension 30 mL (CANCELED)Jump to med 30 mL, Oral, PRN, Constipation, Starting on Piedad 01/06/16 at 1124, Until 01/08/16 at 1405, Use MOM first. If MOM ineffective then use bisacodyl. If bisacodyl ineffective use Fleets enema. Shake well before using., Post-op Or bisACODYL EC (DULCOLAX) tablet 5 mg (CANCELED) 5 mg, Oral, DAILY PRN, Constipation, Starting on Piedad 01/06/16 at 1124, Until 01/08/16 at 1405, Not to be given night of surgery. Use MOM first. If MOM ineffective then use bisacodyl. If bisacodyl ineffective use Fleets enema., Post-op Or bisACODYL (DULCOLAX) suppository 10 mg (CANCELED) 10 mg, Rectal, DAILY PRN, Constipation, Starting on Piedad 01/06/16 at 1124, Until 01/08/16 at 1405, Not to be given night of surgery. Use MOM first. If MOM ineffective then use bisacodyl. If bisacodyl ineffective use Fleets enema. Use rectal if oral is ineffective, or patient is unable to take oral medications., Post-op Or sodium phosphate rectal (FLEET SALINE) enema 1 Enema (CANCELED) 1 enema, Rectal, PRN, Constipation, Starting on Piedad 01/06/16 at 1124, Until 01/08/16 at 1405, Use MOM first. If MOM ineffective then use bisacodyl. If bisacodyl ineffective use Fleets enema., Post-op documented in this encounter Care Teams Job Printer Apprentice Relationship Specialty Start Date End Date Francisco Long MD PCP - General Internal Medicine 07/03/14 [place] [address] [place] [address] Orthopedic Surgery 04/22/15 [place] [address] [address] [place] [address] [id number] Weatherization Technician 01/07/16 documented as of this encounter
--- OUTSIDE RECORDS SUMMARY | 2024-11-16 12:50 | XMS_ITS | Encounter Summary ---
Author Organization [facility] Health Address [address] [facility] [place] [address] Care Team Providers Care Hospitality Job Titles Name Role Phone Francisco Long MD Primary Care Provider Unavail able Alex Nichols MD Unavailable [phone] Reason for Visit * Reason Onset Date Comments Question 11/09/2015 Encounter Details Date Type Department Care Team (Late st Contact Info) Description 11/09/2015 Telephone [facility] Orthoped[facility] [address] [facility] [address] [place] [address] [place] [address] [facility] [address] [place] [address] Question Social History Tobacco Use [...] Telephone Encounter - Lupe Duran MA - 11/15/2015 10:49 AM CST Called Jolene again. She has already had bloodwork done through her press room supervisor and will have that faxed. She would like to have the nasal swab done by Dr. Long's office to avoid another trip here for an [facility] appointment. Since she has so recently had the other knee replacement, that is a reasonable request. An order for the MRSA/MSSA nasal swab will be faxed to Dr. Long's office. COMMUNICATIONS FIELD TECHNICIAN * Telephone Encounter - Lupe Duran MA - 11/10/2015 10:13 AM CST Left message asking Jolene to call back to confirm how she is planning on having her testing done before I send out the information. We don't need another medical clearance since she just had the left knee done in May, but we do need some updated bloodwork and a new nasal swab. If she is planningon having Dr. Long's office perform those tests instead of coming back through the [facility], I just need to send her those orders. I will wait to mail anything until I hear back from her. COMMUNICATIONS FIELD TECHNICIAN * Telephone Encounter - Marianne Ag - 11/09/2015 2:03 PM CST Patient is scheduled for a surgery on 12-06-15 and requests a medical clearance form. Patient is scheduled to see her PCP on Sunday. Please advise patient. COMMUNICATIONS FIELD TECHNICIAN documented in this encounter Plan of Treatment Not on file documented as of this encounter Visit Diagnoses Diagnosis Preop testing- Primary Preoperative examination, unspecified documented in this encounter Care Teams Hospitality Job Titles Relationship Specialty Start Date End Date Francisco Long MD PCP - General Internal Medicine 07/03/14 [place] [address] [address] [place] [address] Orthopedic Surgery 04/22/15 documented as of this encounter
--- OUTSIDE RECORDS SUMMARY | 2024-11-16 12:50 | XMS_ITS | Encounter Summary ---
Author Organization [facility] Address [address] [facility] [place] [address] Care Team Providers Care Ice Cream Vendor Name Role Phone Francisco Long MD Primary Care Provider Unavail able Alex Nichols MD Unavailable [phone] Reason for Visit * Reason Comments Post-Op POV of LTKA 3wks out Encounter Details Date Type Department Care Team (Late st Contact Info) Description 07/02/2015 9:50 AM CDT Office Visit [facility] Orthopedics [address] [facility] [address] [place] [address] [place] [address] [address] Osteoarthrosis, unspecified whether generalized or localized, lower leg (Primary Dx) Social History Tobacco [...] No 06/09/2015 documented as of this encounter Progress Notes * Cornelio Alba PA-C - 07/02/2015 10:15 AM CDT 3 weeks out on left tka 3-110 F/u in 3 weeks * Elias Trujillo - 07/02/2015 9:25 AM CDT POV of LTKA 3wks out documented in this encounter H&P Notes * Cornelio Alba PA-C - 07/05/2015 9:25 AM CDT DATE OF SERVICE: 07/02/2015 Jolene returns to our office today for left knee, 3 weeks out, doing okay. She still continues with the DVT prophylaxis and home exercise program. CLINICAL EXAMINATION: She has a well-healed incision with no evidence of any infection. Motion is 3-110 degrees with good strength, good stability, and good terminal extension. IMPRESSION: Progressing well. PLAN See her back in the office in 3 weeks. She still continue with the exercises. JO ANN Granados M.D. Electronically Signed 07/05/2015 12:56:49 Electronically Signed 07/05/2015 12:58:45 PJD/MedQ #: [id number] documented in this encounter Plan of Treatment Not on file documented as of this encounter Visit Diagnoses Diagnosis Osteoarthrosis, unspecified whether generalized or localized, lower leg- Primary documented in this encounter Care Teams Ice Cream Vendor Relationship Specialty Start Date End Date Francisco Long MD PCP - General Internal Medicine 07/03/14 [place] [address] [place] [address] Orthopedic Surgery 04/22/15 documented as of this encounter
--- OUTSIDE RECORDS SUMMARY | 2024-11-16 12:50 | XMS_ITS | Encounter Summary ---
Author Organization [facility] Health Address [address] [facility] [place] [address] Care Team Providers Care Conditioner Tumbler Name Role Phone Francisco Long MD Primary Care Provider Unavail able Alex Nichols MD Unavailable [phone] Reason for Visit * Reason Onset Date Comments Question 11/16/2015 Encounter Details Date Type Department Care Team (Late st Contact Info) Description 11/16/2015 Telephone [facility] Orthopedics [address] [facility] [address] [place] [address] [place] [address] [facility] [address] [place] [address] Question Social History Tobacco Use [...] Telephone Encounter - Lupe Duran MA - 11/17/2015 12:14 PM CST Called to advise Jolene that she will have to come to the [facility] for her nasal swab if her PCP won't do it, and gave her the number to call to schedule an appointment. DIMPLING MACHINE OPERATOR * Telephone Encounter - Chitra Matos, RN - 11/16/2015 2:35 PM CST Pt has questions regarding where her nasal swab can be done. DIMPLING MACHINE OPERATOR documented in this encounter Plan of Treatment Not on file documented as of this encounter Visit Diagnoses Not on filedocumented in this encounter Care Teams Conditioner Tumbler Relationship Specialty Start Date End Date Francisco Long MD PCP - General Internal Medicine 07/03/14 [place] [address] [facility] [address] [place] [address] Orthopedic Surgery 04/22/15 documented as of this encounter
--- OUTSIDE RECORDS SUMMARY | 2024-11-16 12:50 | XMS_ITS | Encounter Summary ---
Author Organization [facility] Health Address [address] [place] [address] Care Team Providers Care Digital Sales Assistant Name Role Phone Francisco Long MD Primary Care Provider Unavail able Alex Nichols MD Unavailable [phone] Usha Bryan RN Unavailable [phone] Reason for Visit * Reason Onset Date Comments Question 01/10/2016 Encounter Details Date Type Department Care Team (Late st Contact Info) Description 01/10/2016 Telephone [facility] Orthopedics [address] [facility] [address] [place] [address] [place] [address] [address] Question Social History Tobacco Use [...] encounter Miscellaneous Notes * Telephone Encounter - Aditi Greer RN - 01/10/2016 10:04 AM SOFTWARE PROGRAMMER Home health nurse called to ask if patient should continue methotrexate as ordered per discharge instructions. Advised that patient should continue to hold this medication for 1 week from date of surgery. Okay to resume methotrexate on . WARE PROGRAMMER documented in this encounter Plan of Treatment Not on file documented as of this encounter Visit Diagnoses Not on filedocumented in this encounter Care Teams Digital Sales Assistant Relationship Specialty Start Date End Date Francisco Long MD PCP - General Internal Medicine 07/03/14 [place] [address] [address] [place] [address] [id number] Orthopedic Surgery 04/22/15 [place] [address] [address] [place] [address] Equal Employment Opportunity Officer 01/07/16 documented as of this encounter
--- OUTSIDE RECORDS SUMMARY | 2024-11-16 12:50 | XMS_ITS | Encounter Summary ---
Author Organization [facility] Address [address] [facility] [place] [address] Care Team Providers Care Senior Sales Manager Name Role Phone Francisco Long MD Primary Care Provider Unavail able Alex Nichols MD Unavailable Reason for Visit * Auth/Cert (Routine) - Closed Specialty Diagnoses / Procedures Referred By Contac t Referred To Contact Diagnoses Primary localized osteoarthrosis, lower leg Procedures MN TOTAL KNEE ARTHROPLASTY Referral ID Status Reason Start Date Expiration Date Visits Re quested Visits Authorized [id number] Closed 06/03/2015 11/30/2015 1 1 Encounter Details Date Type Department Care Team (Late st Contact Info) Description 06/09/2015 10:43 AM CDT Anesthesia Event [facility] - Perioperative Surgery [address] [place] [address] Mary Matthews MD [facility] [address] [facility] [address] [place] [phone] [place] [address] [place] [address] Anesthesia Record Procedure Summary Procedure Name Responsible Anesthesiologist Anesthesia Start Time Anesthesia Stop Time LEFT TOTAL KNEE ARTHROPLASTY (Left: Knee) Mary Matthews MD 06/09/15 1043 06/09/15 1232 Events Date Time Event Comment 06/09/2015 0944 1043 An Start 1045 An Start Data 1046 An Start Data 1057 Spinal Completed 1113 An Tourn Inflated 1117 PT Reassessment Patient and Vital Signs reassessed prior to induction. 1218 An Tourn Deflated 1221 Elect Sign The providers l isted as staff are the responsible providers for the case. 1221 an stop data 1221 ANPTO2 1231 Handoff Handoff include d discussion of Intraoperative anesthetic management, issues, concerns and expectations/plans for the early post-procedure period. There was an opportunity for questions and the receiving team acknowledged understanding of the handoff. 1232 An Stop Meds Name Total midazolam (VERSED) 1 mg/mL injection 4 m g fentaNYL (SUBLIMAZE) 50 mcg/mL injection 100 mcg propofol 10 mg/mL injection 60 mg propofol 10 mg/mL injection 373.19 mg dexamethasone (DECADRON) 4 mg/ml injecti on 4 mg ondansetron (ZOFRAN) 2 mg/mL injection 4 mg tranexamic acid (CYKLOKAPRON) injection 800 mg ceFAZolin (ANCEF) IVPB 2 g 0 g ceFAZolin (ANCEF) IVPB 1 g 2 g lactated ringers infusion 825 mL * Agents Name Insp. N2O O2 * Blood No blood administrations on file. Lines, Drains, and Airways Type Details Placement Removal RETIRED Procedural Site 06/09/15; 1121; Left; Knee; 06/12/15; 1828 06/09/15 1121 by Stephen Schmitt RN 06/12/15 1828 by Generic, Auto Release Drain 06/09/15; 1122; Dr. Nichols; 1; Hemovac; med/lg; Left; Knee; Sedated; 06/10/15; 0130; MSpencerRN 06/09/15 1122 by Stephen Schmitt RN 06/10/15 0130 by Paula Zavala RN documented in this encounter Social History Tobacco Use Types Packs/Day Years Used Date Smoking Tobacco: Never Smokeless Tobacco: Never Alcohol Use Standard Drinks/Week Comments No 0 (1 standard drink = 0.6 oz pur e alcohol) Sex and Gender Information Value Date Recorded Sex Assigned at Not on file Gender Identity Not on file Sexual Orientation Not on file documented as of this encounter Progress Notes * Quang Sánchez APRN-DIVISION FIELD INSPECTOR - 06/09/2015 12:23 PM CDT ANESTHESIA POSTPROCEDURE EVALUATION Jolene Cedillo is a 69 y.o. female Temp: 36.4 ??C Pulse: 84 Resp: 16 BP: 161/89 mmHg SpO2: 96 % Pain Rating Score #1: 0 Anesthesia Type: spinal Mental status: sufficiently recovered from acute administration of anesthesia to participate in theevaluation. Level of consciousness: awake No numbness, tingling or visual disturbances present. General appearance: well-appearing Respiratory function: natural airway. Cardiac: stable Pain: comfortable/acceptable PONV: None Postop hydration: adequate. Patient may be released from anesthesia care. documented in this encounter Procedure Notes * Quang Sánchez APRN-CRNA - 06/09/2015 11:12 AM CDTAssociated Order(s): NEURAXIAL BLOCK NEURAXIAL BLOCK Patient Location: OR Pre Procedure Indication: surgical anesthesia Anticoagulation /Antithrombosis Status Confirmed: Yes Preanesthetic Checklist: patient identified, IV checked, site marked, risks and benefits discussed,surgical consent verified, monitors and equipment checked, pre-op evaluation done, timeout performed, informed consent obtained and questions answered / anesthesia plan accepted Monitors: Pulse Ox Patient Condition: sedated, meaningful contact maintained Patient Position: sitting Procedure Block Performed: spinal Prep: Betadine Sterile Field: sterile gloves, sterile field established, cap/hat and mask Approach: midline Skin Numbed with: lidocaine 1% Spinal Needle Type: Quincke Needle Gauge: 25 G Placement Site: L2-3 Number of Attempts: 1 CSF: free flow, aspiration before injection and aspiration during injection Local Anesthetic: bupivacaine 0.75% in dextrose 2 Events CSF return injection not painful no paresthesia no other event Degree of Difficulty: none Position Post Procedure: supine Vital signs monitored and stable throughout. See Anesthesia Intraop record for details. Block Start Time: 06/09/2015 10:57 AM Block Performed by: Gerardo CHRISTIAN documented in this encounter Consult Notes * Mary Matthews MD - 05/19/2015 8:48 AM CDT Pre-anesthesia Evaluation Procedure(s): LEFT TOTAL KNEE ARTHROPLASTY (Left Knee) Vital Signs: BMI: Estimated body mass index is 30.06 kg/(m^2) as calculated from the following: Height as of 08/03/14: 5' 7 (1.702 m). Weight as of 08/03/14: 192 lb (87.091 kg). History: Past Medical History Diagnosis Date ??? HTN (hypertension) ??? Anemia, unspecified Anemia ??? Rheumatoid arthritis(714.0) Rheumatoid Arthritis Past Surgical History Procedure Laterality Date ??? Knee arthroscopy bilateral reports that she has never smoked. She has never used smokeless tobacco. She reports that she does not drink alcohol or use illicit drugs. Allergies: has No Known Allergies. Medications: No prescriptions prior to admission No current facility-administered medications on file prior to encounter. Current Outpatient Prescriptions on File Prior to Encounter Medication Sig Dispense Refill ??? losartan-hydrochlorothiazide (HYZAAR) 100-12.5 MG tablet Take 1 Tab by mouth once daily. ? ? methotrexate 2.5 MG tablet Take 5 mg by mouth every Sunday, Sunday & Sunday Physical Exam: NPO status: no solids since midnight, no liquids within 2 hours Oriented to person, place and time Airway: III Neck ROM: full Dental exam findings: normal/ok Pulmonary exam: breath sounds CTA Heart sounds: S1 S2 Spinal Alignment: no deformity noted Negative for anesthesia complications Plan for Anesthesia: ASA Score: 2. Anesthesia plan: spinal Planned method of induction: intravenous Planned postop destination: PACU Anesthesia plan, risks and benefits discussed with patient Anesthesia consent: obtained Plan accepted yes No results for input(s): WBC, RBC, HGB, HCT, MCV, MCHC, RDW, RDWCV, PLTCOUNT, NEUTPCT, LYMPHPCT, MONOCYTPCT, EOSINPCT, BASOPHILPCT, GRANSIMMPCT, LYMPHABS, MONOCYTABS, EOSINABS, BASOABS, IMMGRANSABS, NRBCAUTO in the last [id number] hours. Mary Matthews MD documented in this encounter Plan of Treatment Not on file documented as of this encounter Procedures Procedure Name Priority Date/Time Associated Diagnosis Comments NEURAXIAL BLOCK Routine 06/09/2015 11:15 AM CDT documented in this encounter Results * NEURAXIAL BLOCK (06/09/2015 11:15 AM CDT) Narrative Quang Sánchez, PATTI-CRISTHIAN - 06/09/2015 11:15 AM CDT Quang Sánchez [...] Alex Nichols MD GENERAL ANESTHESIA O RDERABLES documented in this encounter Visit Diagnoses Not on filedocumented in this encounter Administered Medications Inactive Administered Medications - up to 3 most recent administrations Medication Order MAR Action Action Date Dose Rate Site ceFAZolin (ANCEF) IVPB 1 g 1 g, at 100 mL/hr, Intravenous, PRE-OP MULTIPLE, Starting on Sun06/09/15 at 0938, Until Sun06/09/15 at 1448, Administer 30 minutes prior to surgical incision. May repeat dose in 3 hours if surgical incision is not yet closed., Pre-op $ Given 06/09/2015 10:44 AM CDT 1 g $ Given 06/09/2015 10:43 AM CDT 1 g dexamethasone (DECADRON) injection PRN, Nausea/Vomiting, Starting on Sun06/09/15 at 1108, Until Sun06/09/15 at 1232, Anesthesia Intra-op $ Given 06/09/2015 11:08 AM CDT 4 mg fentaNYL (SUBLIMAZE) injection PRN, Starting on Sun06/09/15 at 1059, Until Sun06/09/15 at 1232, Anesthesia Intra-op $ Given 06/09/2015 11:44 AM CDT 50 mcg $ Given 06/09/2015 10:59 AM CDT 50 mcg midazolam (VERSED) injection PRN, Starting on Sun06/09/15 at 1043, Until Sun06/09/15 at 1232, Anesthesia Intra-op $ Given 06/09/2015 11:12 AM CDT 1 mg $ Given 06/09/2015 10:55 AM CDT 1 mg $ Given 06/09/2015 10:43 AM CDT 2 mg ondansetron (ZOFRAN) injection PRN, Nausea/Vomiting, Starting on Sun06/09/15 at 1117, Until Sun06/09/15 at 1232, Anesthesia Intra-op $ Given 06/09/2015 11:17 AM CDT 4 mg propofol (DIPRIVAN) injection CONTINUOUS PRN, Starting on Sun06/09/15 at 1103, Until Sun06/09/15 at 1232, Anesthesia Intra-op Rate Change 06/09/2015 12:13 PM CDT 35 mcg/kg/min 18.38 mL/hr Rate Change 06/09/2015 11:59 AM CDT 70 mcg/kg/min 36.75 mL /hr Rate Change 06/09/2015 11:44 AM CDT 60 mcg/kg/min 31.5 mL/ hr propofol (DIPRIVAN) injection PRN, Starting on Sun06/09/15 at 1144, Until Sun06/09/15 at 1232, Anesthesia Intra-op $ Given 06/09/2015 11:59 AM CDT 30 mg $ Given 06/09/2015 11:44 AM CDT 30 mg tranexamic acid (CYKLOKAPRON) injection PRN, Starting on Sun06/09/15 at 1108, Until Sun06/09/15 at 1232, Anesthesia Intra-op $ Given 06/09/2015 11:08 AM CDT 800 mg documented in this encounter Care Teams Senior Sales Manager Relationship Specialty Start Date End Date Francisco Long MD PCP - General Internal Medicine 07/03/14 [place] [address] [address] Orthopedic Surgery 04/22/15 documented as of this encounter
--- OUTSIDE RECORDS SUMMARY | 2024-11-16 12:50 | XMS_ITS | Encounter Summary ---
Author Organization [facility] Address [address] [place] [address] Care Team Providers Care Er Nurse Name Role Phone Francisco Long MD Primary Care Provider Unavail able Alex Nichols MD Unavailable Reason for Visit * Auth/Cert (Routine) - Closed Specialty Diagnoses / Procedures Referred By Contac t Referred To Contact Diagnoses Unilateral primary osteoarthritis, right knee Procedures [place] TOTAL KNEE ARTHROPLASTY Referral ID Status Reason Start Date Expiration Date Visits Re quested Visits Authorized [id number] Closed 12/24/2015 06/21/2016 1 1 Encounter Details Date Type Department Care Team (Late st Contact Info) Description 01/06/2016 8:04 AM PIPED POCKET MACHINE OPERATOR Anesthesia Event [facility] - Perioperative Surgery [address] [place] [address] Uche Acosta, PATTI-WINDMILL TECHNICIAN [id number] [place] [address] [place] [address] Anesthesia Record Procedure Summary Procedure Name Responsible Anesthesiologist Anesthesia Start Time Anesthesia Stop Time RIGHT TOTAL KNEE REPLACEMENT (Right: Knee) 01/06/16 0804 01/06/16 0938 Events Date Time Event Comment 01/06/2016 0705 0804 An Start 0804 An Start Data 0804 PT Reassessment Patient and Vital Signs reassessed prior to induction. 0831 An Tourn Inflated Tourniquet on right thigh inflated to 350 mmhg. 0904 An Tourn Deflated 0928 An Tourn Deflated 0932 an stop data 0932 Elect Sign The providers l isted as staff are the responsible providers for the case. To PACU responding verbally. 0938 An Stop 0938 Handoff Handoff include d discussion of Intraoperative anesthetic management, issues, concerns and expectations/plans for the early post-procedure period. There was an opportunity for questions and the receiving team acknowledged understanding of the handoff. Meds Name Total midazolam (VERSED) 1 mg/mL injection 2 m g ceFAZolin (ANCEF) 2 g IVPB 2 g bupivacaine in dextrose 0.75-8.25 % (spi nal tray NO CHARGE) 2 mL dexamethasone (DECADRON) 4 mg/ml injecti on 8 mg ondansetron (ZOFRAN) 2 mg/mL injection 4 mg tranexamic acid (CYKLOKAPRON) injection 900 mg propofol injection 10mg/ml (ENDO USE) 22 mL lactated ringers infusion 1,000 mL * Agents Name Insp. N2O O2 * Blood No blood administrations on file. Lines, Drains, and Airways Type Details Placement Removal Peripheral IV Date: 01/06/16; Time: 718; Orientation: Right; Placed By: quique; Tolerance: Well 01/06/16 0719 by Yuli Cline RN 01/08/16 0000 by Tiff Parker RN Drain 01/06/16; 0900; Dr. Nichols; 1; Hemovac; medium/large; Right; Knee; No; Well, Sedated, Other (Comment) (spinal anesthesia); 01/07/16 01/06/16 0900 by Tiff Martínez RN 01/07/16 0000 by Marguerite Daniels RN RETIRED Procedural Site 01/06/16; 0915; Right; Knee; 01/08/16; 1905 01/06/16 0915 by Tiff Martínez RN 01/08/16 1905 by [employer] Auto Release documented in this encounter Social History Tobacco [...] as of this encounter Progress Notes * Uche Acosta APRN-CRNA - 01/06/2016 5:09 PM CST ANESTHESIA POSTPROCEDURE EVALUATION Jolene Cedillo is a 70 y.o. female Temp: 36.8 ??C Pulse: 85 Resp: 16 BP: 118/60 mmHg SpO2: 95 % Pain Rating Score #1: 3 Anesthesia Type: spinal Mental status: sufficiently recovered from acute administration of anesthesia to participate in theevaluation. Level of consciousness: awake No numbness, tingling or visual disturbances present. General appearance: well-appearing Respiratory function: natural airway. Cardiac: stable Pain: comfortable/acceptable PONV: None Postop hydration: adequate. Patient may be released from anesthesia care. Perioperative Complications: No value filed. ASA/AQI Tracking Events: No value filed. D POCKET MACHINE OPERATOR documented in this encounter Procedure Notes * Uche Acosta APRN-CRNA - 01/06/2016 8:55 AM CSTAssociated Order(s): NEURAXIAL BLOCK NEURAXIAL BLOCK Patient Location: OR Pre Procedure Indication: surgical anesthesia Anticoagulation /Antithrombosis Status Confirmed: Yes Preanesthetic Checklist: patient identified, IV checked, site marked, risks and benefits discussed,surgical consent verified, monitors and equipment checked, pre-op evaluation done, timeout performed, informed consent obtained and questions answered / anesthesia plan accepted Monitors: BP, Pulse Ox and EKG Patient Condition: sedated, meaningful contact maintained throughout procedure Patient Position: sitting Procedure Block Performed: spinal Prep: Betadine Sterile Field: mask, cap/hat, sterile field established and sterile gloves Approach: midline Skin Numbed with: lidocaine 1% Spinal Needle Type: pencil-point Needle Gauge: 25 G Needle Length: 3.5 in Placement Site: L4-5 Number of Attempts: 1 CSF: free flow, aspiration before injection, aspiration during injection and aspiration after injection Local Anesthetic: bupivacaine 0.75% in dextrose 2 ml Events CSF return injection not painful no paresthesia no other event Degree of Difficulty: none Position Post Procedure: supine Vital signs monitored and stable throughout. See Anesthesia Intraop record for details. Block Start Time: 01/06/2016 8:05 AM Block End Time: 01/06/2016 8:10 AM Block Performed by: GINO Vinson Notes: [facility] spinal tray lot #[id number] Exp. 12/2016. D POCKET MACHINE OPERATOR documented in this encounter Consult Notes * Uche Acosta APRN-CRNA - 01/06/2016 7:01 AM CST Pre-anesthesia Evaluation Procedure(s): RIGHT TOTAL KNEE REPLACEMENT (Right Knee) Vital Signs: BMI: Estimated body mass index is 30.22 kg/(m^2) as calculated from the following: Height as of 06/09/15: 5' 7 (1.702 m). Weight as of 05/19/15: 193 lb (87.544 kg). History: Past Medical History Diagnosis Date ??? HTN (hypertension) ??? Anemia, unspecified Anemia ??? Rheumatoid arthritis(714.0) Rheumatoid Arthritis Past Surgical History Procedure Laterality Date ??? Knee arthroscopy bilateral ??? Knee replacement Left 06/09/2015 Left; LEFT TOTAL KNEE ARTHROPLASTY reports that she has never smoked. She has never used smokeless tobacco. She reports that she does not drink alcohol or use illicit drugs. Allergies: has No Known Allergies. Medications: Home Medications for Outpatients: No current outpatient prescriptions on file. Home Medications for Inpatients: Prescriptions prior to admission Medication Sig Dispense [...] Take 1 Tab by mouth once daily. Inpatient Medications: No current facility-administered medications for this encounter. Physical Exam: NPO status: no solids since midnight, no liquids within 2 hours Oriented to person, place and time Airway: II Neck ROM: full Dental exam findings: normal/ok Pulmonary exam: breath sounds CTA Heart sounds: S1 S2 Spinal Alignment: symmetrical Negative for anesthesia complications ECG reviewed Reviewed labs Plan for Anesthesia: ASA Score: 2. Anesthesia plan: spinal Planned method of induction: intravenous Planned postop destination: PACU Anesthesia plan, risks and benefits discussed with patient Anesthesia consent: obtained Use of blood products discussed with: patient Blood products consent: obtained Plan accepted yes Discussed anesthesia plan with: WINDMILL TECHNICIAN. D POCKET MACHINE OPERATOR documented in this encounter Plan of Treatment Not on file documented as of this encounter Procedures Procedure Name Priority Date/Time Associated Diagnosis Comments NEURAXIAL BLOCK Routine 01/06/2016 8:58 AM PIPED POCKET MACHINE OPERATOR documented in this encounter Results * NEURAXIAL BLOCK (01/06/2016 8:58 AM PIPED POCKET MACHINE OPERATOR) Narrative Uche Acosta APRN-CRNA - 01/06/2016 8:58 AM PIPED POCKET MACHINE OPERATOR Uche Acosta APRN-CRNA ? 01/06/2016 ??8:58 AM [...] ??GINO Vinson Notes: ??[facility] spinal tray lot #[id number] ??Exp. 12/2016. Alex Nichols MD GENERAL ANESTHESIA O RDERABLES documented in this encounter Visit Diagnoses Not on filedocumented in this encounter Administered Medications Inactive Administered Medications - up to 3 most recent administrations Medication Order MAR Action Action Date Dose Rate Site bupivacaine in dextrose (spinal) (SENSORCAINE) injection PRN, Starting on Piedad 01/06/16 at 0810, Until Piedad 01/06/16 at 0938, Anesthesia Intra-op $ Given 01/06/2016 8:10 AM PIPED POCKET MACHINE OPERATOR 2 mL ceFAZolin 2 g (ANCEF) IVPB PRN, Starting on Piedad 01/06/16 at 0804, Until Piedad 01/06/16 at 0938, Anesthesia Intra-op $ Given 01/06/2016 8:04 AM PIPED POCKET MACHINE OPERATOR 2 g dexamethasone (DECADRON) injection PRN, Nausea/Vomiting, Starting on Piedad 01/06/16 at 0815, Until Piedad 01/06/16 at 0938, Anesthesia Intra-op $ Given 01/06/2016 8:15 AM PIPED POCKET MACHINE OPERATOR 8 mg lactated ringers infusion CONTINUOUS PRN, Starting on Piedad 01/06/16 at 0804, Until Piedad 01/06/16 at 0938, Anesthesia Intra-op $ New Bag/Syringe 01/06/2016 8:04 AM PIPED POCKET MACHINE OPERATOR midazolam (VERSED) injection PRN, Starting on Piedad 01/06/16 at 0802, Until Piedad 01/06/16 at 0938, Anesthesia Intra-op $ Given 01/06/2016 8:02 AM PIPED POCKET MACHINE OPERATOR 2 mg ondansetron (ZOFRAN) injection PRN, Nausea/Vomiting, Starting on Piedad 01/06/16 at 0810, Until Piedad 01/06/16 at 0938, Anesthesia Intra-op $ Given 01/06/2016 8:15 AM PIPED POCKET MACHINE OPERATOR 4 mg propofol (DIPRIVAN) injection CONTINUOUS PRN, Starting on Piedad 01/06/16 at 0815, Until Piedad 01/06/16 at 0938, Anesthesia Intra-op $ New Bag/Syringe 01/06/2016 8:15 AM PIPED POCKET MACHINE OPERATOR tranexamic acid (CYKLOKAPRON) injection PRN, Starting on Piedad 01/06/16 at 0829, Until Piedad 01/06/16 at 0938, Anesthesia Intra-op $ Given 01/06/2016 8:29 AM PIPED POCKET MACHINE OPERATOR 900 mg documented in this encounter Care Teams Er Nurse Relationship Specialty Start Date End Date Francisco Long MD PCP - General Internal Medicine 07/03/14 [place] [address] [place] [address] Orthopedic Surgery 04/22/15 documented as of this encounter
--- OUTSIDE RECORDS SUMMARY | 2024-11-16 12:50 | XMS_ITS | Encounter Summary ---
Author Organization [facility] Address [address] [facility] [place] [address] Care Team Providers Care Count Team Member Name Role Phone Francisco Long MD Primary Care Provider Unavail able Alex Nichols MD Unavailable [phone] Reason for Visit * Auth/Cert (Routine) - Closed Specialty Diagnoses / Procedures Referred By Contac t Referred To Contact Diagnoses Unilateral primary osteoarthritis, right knee Procedures [place] TOTAL KNEE ARTHROPLASTY Referral ID Status Reason Start Date Expiration Date Visits Re quested Visits Authorized [id number] Closed 12/24/2015 06/21/2016 1 1 Encounter Details Date Type Department Care Team (Late st Contact Info) Description 01/06/2016 8:00 AM IMMIGRATION ATTORNEY - 01/06/2016 10:07 AM [facility] Surgery [facility] - Perioperative Surgery [address] [place] [address] [place] [id number] [facility] [address] [place] [address] RIGHT TOTAL KNEE REPLACEMENT Surgery Details Date/Time Status Location OR Service Patient Class Case Class Case Type Trauma Case? 01/06/2016 8:00 AM Posted [facility] MAIN OR OR 12 Orthopedics Gauge And Instrument Inspector Admit Surgical Elective > 5 days Panel 1 Procedure LRB Anes Op Region Wound Class Comments RIGHT TOTAL KNEE REPLACEMENT Right Spinal Knee C lean Surgeon Surgeon Role [...] Comments Blood Pressure 117/64 01/08/2016 7:50 AM IMMIGRATION ATTORNEY Pulse 95 01/08/2016 7:50 AM IMMIGRATION ATTORNEY Temperature 36.7 ??C (98.1 ??F) 01/08/2016 7:50 AM CS T Respiratory Rate 18 01/08/2016 7:50 AM IMMIGRATION ATTORNEY Oxygen Saturation 93% 01/08/2016 7:50 AM IMMIGRATION ATTORNEY Inhaled Oxygen Concentration - - Weight 88.9 kg (196 lb) 01/06/2016 6:58 AM IMMIGRATION ATTORNEY Height 170.2 cm (5' 7 ) 01/06/2016 6:58 AM IMMIGRATION ATTORNEY Body Mass Index 30.7 01/06/2016 6:58 AM IMMIGRATION ATTORNEY documented in this encounter Functional Status Functional [...] will be taken out on 01/20/16 by [facility]. When to call your provider Call [...] 7 days Resume when ok with your oracle data warehouse developer Natividad Diamond CONTINUE taking these medications Instructions Authorizing Provider ferrous sulfate 325 (65 FE) MG tablet Take 325 mg by mouth daily with breakfast losartan-hydrochlorothiazide 100-12.5 MG tablet Commonly known as: HYZAAR Take 1 Tab by mouth once daily. Other - once daily Brevail Plant [place] Supplement - Instructed to stop 10 days before surgery CC: None GRATION ATTORNEY documented in this encounter Medications at Time [...] 7 days Resume when ok with your oracle data warehouse developer 3 01/07/2016 Other once daily Brevail Plant [...] discharge: Family () Proposed Home Health Agency: *[facility] Home Care Intake Lucy will be taken out on 01/20 by RN Pharmacy benefit: Yes. Equipment At Home: Cane-Straight;Chair-Shower;Walker-2 Wheeled;Crutches-Standard;Credit Front Office Developer List DME pt. requires but does not have.: None PCP: Francisco Long MD Physician Followup Appointment(s) Made: No Appointment(s) made with the following physician providers: Surgeon (02/01/16 @ 14:30 Dr. Nichols ) Reason why no appointment was made with physician: Appointment already made ?? Will continue to follow.?? For any questions or needs please contact: Truck Manager Name/Phone number: Usha Bryan RN Ascom ~ [phone] Pager ~ [phone] GRATION ATTORNEY * Tiff Parker RN - 01/08/2016 1:08 [...] right hand ,removed and patient went home. GRATION ATTORNEY * Natividad Diamond MD - 01/08/2016 12:32 [...] 100 mg, Oral, QDAY morphine 1 mg/ml ELECTRONICS ENGINEERING MANAGER, Intravenous, ELECTRONICS ENGINEERING MANAGER ?? 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 Alert , moves all extremities against gravity [...] She was asked to f/u with her oracle data warehouse developer to determine if she needed to conitnue her meds 3. Hypertension:?? Resume Cozaar Monitor blood pressure and adjust medications as needed GRATION ATTORNEY * Tiff Ashley RN - 01/08/2016 11:05 AM CST Ortho Progress Note 01/08/2016 Awake and alert Afebrile Dressing knee c/d/i Pain controlled Up in chair Recent Labs Component Name 01/08/16 0137 01/07/16 0450 12/16/15 0933 HGB 10.8* 10.6* 12.8 HCT 33.6* 33.2* 39.9 Progressing with PT Discharge home Follow up in office 3 weeks GRATION ATTORNEY * Taniya Chatmna, PT - 01/08/2016 9:32 AM CST PT [...] Aching;Throbbing Bed Mobility: Supine to Sit: Complete [facility] Sit to Supine: Modified [facility] [facility] Transfers: Sit to Stand: Supervision, Set-Up, Cues (cues for technique, mod I p teaching) Stand to Sit: Modified [facility] Mobility: Distance Ambulated: 220 FEET Ambulation: Assistive Device: Gait Belt;Walker-2 Wheeled Ambulation: Level of Assistance: Modified [place] Ambulation: Gait Deviations: Antalgic;[place] - Decreased;Heel Strike [...] the discharge summary. Taniya Luque DPT [phone] GRATION ATTORNEY * Taniya Chatman, PT - 01/08/2016 9:32 AM CST Problem: Mobility Goal: STG - Patient will ambulate 220 feet with wh walker and SBA of 1 Outcome: Goal Met Date Met: 01/08/16 Problem: Transfers Goal: STG - Patient to transfer to and from sit to supine independently Outcome: Goal Met Date Met: 01/08/16 Modified independent with knee ortho strap GRATION ATTORNEY * Liana Hauser RN - 01/08/2016 5:59 AM CST Welder Explosion Summary: The patient has been in NAD [...] extremity when OOB and ambulating. Medicated with [place] 10 for discomfort and is satisfied with the resulting reduction in pain. Voiding without c/o difficulty. GRATION ATTORNEY * Liana Hauser RN - 01/08/2016 5:54 [...] assistance.. Fall precautions will remain in effect GRATION ATTORNEY * Marguerite Daniels RN - 01/07/2016 4:59 PM CST Shift Summary Patient up with SBA and wheeled walker. [place] 10 given for pain control. No c/o nausea or vomiting.Voiding adequate amounts. Silver mepilex dressing clean, dry and intact. VSS. Anticipate possible discharge in the AM. Will continue to monitor. Marguerite Daniels RN GRATION ATTORNEY * Natividad Diamond MD - 01/07/2016 4:42 [...] mg, Oral, QDAY ?? morphine 1 mg/ml ELECTRONICS ENGINEERING MANAGER, Intravenous, ELECTRONICS ENGINEERING MANAGER ?? 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 Afebrile. Pain controlled. Dressing knee c/d/i. Continue physical therapy. Up in chair Recent Labs Component Name 01/07/16 0450 12/16/15 0933 06/11/15 0509 HGB 10.6* 12.8 10.9* HCT 33.2* 39.9 33.3* GRATION ATTORNEY * Alison Buchanan, PT - 01/07/2016 3:04 PM CST Patient was seen by PT this afternoon. Progressing well with PT. Right knee pain 04/04. Treatment: 1. 10 reps therapeutic exercises, per [...] call light in reach. Bed alarm activated. GRATION ATTORNEY * Alison Buchanan, PT - 01/07/2016 11:51 AM CST Patient [...] following treatment with call light in reach. GRATION ATTORNEY * Marguerite Daniels RN - 01/07/2016 9:46 AM CST Problem: Pain/Discomfort Goal: Patient exhibits reduced pain/discomfort as evidenced by pain scores Outcome: Ongoing Patient currently rates pain at 4/10. Functional goal is 5/10. Goal: Patient uses pharmacological and non-pharmacological pain management strategies. Outcome: Ongoing Patient taking PRN [place] 5 for pain control. Ice packs applied [...] and wheeled walker. Call light within reach. GRATION ATTORNEY * Usha Bryan RN - 01/07/2016 9:10 AM CST [facility] Case Management Initial Assessment Case Management screen [...] Equipment at Home: Equipment At Home: Cane-Straight;Chair-Shower;Walker-2 Wheeled;Crutches-Standard;Credit Front Office Developer PCP: Francisco Long MD Physician Followup Appointment(s) [...] contact: Usha Bryan RN Case Manager Ascom: [phone] Pager: [phone] GRATION ATTORNEY * Pricilla Maher RN - 01/06/2016 4:57 PM CST Shift summary: To floor at 1130. VS stable. Knee dressing is dry and intact. Incontinent of urine x1. Up at bedside with PT.Fair appetite, denies nausea. Pain has been minimal and using Morphine PCAprn. No respiratory distress, remains on capnography and oxygen. Will continue to monitor. Pricilla Maher RN GRATION ATTORNEY * Felicia Wolfe PT - 01/06/2016 4:45 [...] as the discharge summary. Deborah Wolfe, PT [phone] GRATION ATTORNEY * Dawan Joseph, [facility] - 01/06/2016 7:34 AM CST [facility] Pharmacy Clinical Services Admission Medication Review [...] of Jolene Cedillo's care. Dawna Joseph RP GRATION ATTORNEY documented in this encounter H&P Notes * Cornelio Alba PA-C - 01/05/2016 8:43 AM CST [facility] PRE-OPERATIVE HISTORY AND PHYSICAL PATIENT NAME: Jolene Cedillo : 1945 CSN: [id number] HISTORY OF PRESENT ILLNESS: This is a 70 y.o. year-old female seen at the office regarding her right knee. The right knee has been symptomatic for over several years. Radiograph shows end-stage tricompartmental DJD of the right knee with [id number] degenerative changes along medial joint line/varus. Patient [...] by mouth 3 times daily with meals ProviderAnnabelle MD Other once daily Brevail Plant [place] Supplement Instructed to stop 10 days before surgery ProviderAnnabelle MD losartan-hydrochlorothiazide (HYZAAR) 100-12.5 MG tablet Take [...] tricompartmental DJD of the right knee with [id number] degenerative changes along medial joint line/varus. IMPRESSION: [...] expectations associated with this. 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 Alert , No facial assymetry, clear speech. [...] CC: Francisco Long MD, Alex Nichols MD GRATION ATTORNEY documented in this encounter OR Notes * Operative - Alex Nichols MD - 01/06/2016 9:28 AM CST Operative Report Right Total Knee PATIENT: Jolene Cedillo : 1945 ADMIT DATE: 01/06/2016 DATE OF SURGERY: 01/06/2016 PHYSICIAN: Alex Nichols MD SURGEON: Alex Nichols MD STONE CARRIAGE OPERATOR: Alix IRAHETA The skilled assistance of the PA-C was necessary for the effective and successful completion of this case. The physician language assistant was essential for the proper positioning, [...] Disposition: PACU Complications: None Alex Nichols MD GRATION ATTORNEY documented in this encounter Plan of Treatment Not on file documented as of this encounter Procedures Procedure Name Priority Date/Time Associated Diagnosis Comments HGB HCT PANEL AM Draw 01/08/2016 1:37 AM IMMIGRATION ATTORNEY HGB HCT PANEL AM Draw 01/07/2016 4:50 AM IMMIGRATION ATTORNEY ARTHROPLASTY TOTAL KNEE 01/06/2016 7:39 AM IMMIGRATION ATTORNEY Special Needs BIOMET (CAMILO) NOTIFIED-NB documented in this encounter Results * (ABNORMAL) HGB HCT PANEL (01/08/2016 1:37 AM IMMIGRATION ATTORNEY) Hemoglobin 10.8(L) 12.0 - 15.6 gm/dL 01/08/2016 1:58 AM IMMIGRATION ATTORNEY [facility] Hematocrit 33.6(L) 35.9 - 45.5 % 01/08/2016 1:58 AM IMMIGRATION ATTORNEY [facility] Blood BLOOD SPECIMEN / Unknown 01/08/2016 1:37 AM IMMIGRATION ATTORNEY 01/08/2016 1:55 AM IMMIGRATION ATTORNEY Alex Nichols MD LAB - HEMATOLOGY ORD ERABLES [facility] [address] [place] [address] * (ABNORMAL) HGB HCT PANEL (01/07/2016 4:50 AM IMMIGRATION ATTORNEY) Hemoglobin 10.6(L) 12.0 - 15.6 gm/dL 01/07/2016 5:21 AM IMMIGRATION ATTORNEY [facility] Hematocrit 33.2(L) 35.9 - 45.5 % 01/07/2016 5:21 AM IMMIGRATION ATTORNEY [facility] Blood BLOOD SPECIMEN / Unknown 01/07/2016 4:50 AM IMMIGRATION ATTORNEY 01/07/2016 5:01 AM IMMIGRATION ATTORNEY Alex Nichols MD LAB - HEMATOLOGY ORD ERABLES [facility] [address] [place] [address] documented in this encounter Visit Diagnoses Not on filedocumented in this encounter Administered Medications Inactive Administered Medications - up to 3 most recent administrations Medication Order MAR Action Action Date Dose Rate Site bupivacaine PF (MARCAINE PF) 0.25 % injection PRN, Starting on Piedad 01/06/16 at 0831, Until Piedad 01/06/16 at 0935, Intra-op $ Given 01/06/2016 8:31 AM IMMIGRATION ATTORNEY 30 mL Right Knee morphine (PF) injection PRN, Starting on Piedad 01/06/16 at 0831, Until Piedad 01/06/16 at 0935, Intra-op $ Given 01/06/2016 8:31 AM IMMIGRATION ATTORNEY 10 mg Right Knee polymyxin B 500,000 Units, bacitracin 50,000 Units in NaCl 0.9 % 1,000 mL irrigation PRN, Starting on Piedad 01/06/16 at 0831, Until Piedad 01/06/16 at 0935, Intra-op $ Given 01/06/2016 8:31 AM IMMIGRATION ATTORNEY 1,000 mL Right Knee vancomycin (VANCOCIN) injection PRN, Starting on Piedad 01/06/16 at 0831, Until Piedad 01/06/16 at 0935, Intra-op $ Given 01/06/2016 8:31 AM IMMIGRATION ATTORNEY 500 mg Right Knee documented in this encounter Active and Recently Administered Medications Times are shown in IMMIGRATION ATTORNEY. Scheduled Medication Order 01/06/2016 01/07/2016 01/08/2016 0.9% NaCl injection 3 mL (CANCELED) 3 mL, Intracatheter, EVERY 8 HOURS, First dose on Sun01/07/16 at 0600, Until Discontinued, Post-op 0658 ($ Given - Provider: Francia Otero RN)1343 ($ Given - Provider: Marguerite Daniels RN)2039 ($ Given - Provider: Liana Hauser, TAO) 0704 ($ Given - Provider: Liana Hauser RN) acetaminophen (TYLENOL) tablet 1,000 mg (COMPLETED) 1,000 mg, Oral, PRE-OP ONCE, 1 dose, On Piedad 01/06/16 at 0706, Pre-op 0714 ($ Given - Provider: Yuli Cline RN) aspirin (ASPIRIN) tablet 325 mg 325 mg, Oral, 2 TIMES DAILY, First dose (after last modification) on Sun01/07/16 at 0900, Until Discontinued, VTE PROPHYLAXIS, Post-op 09 ($ Given - Provider: Marguerite Daniels RN)2037 ($ Given - Provider: Liana Hauser RN) [...] RN)1423 (Rx Stopped - Provider: Pricilla Maher RN)2141 ($ Given - Provider: Francia Otero, TAO)2211 (Rx Stopped - Provider: Francia Otero RN) ceFAZolin (ANCEF) IVPB 1 g (COMPLETED)(Linked [...] dose, On Piedad 01/06/16 at 0706, Pre-op 0715 ($ Given - Provider: Yuli Cline RN) celecoxib (CeleBREX) capsule 400 mg (CANCELED) 400 mg, Oral, DAILY, First dose on Sun01/07/16 at 0900, Until Discontinued, Post-op 09 ($ Given - Provider: Marguerite Daniels RN) 0945 ($ Given - Provider: Myrna Aaron RN) famotidine (PEPCID) tablet 20 mg (COMPLETED) 20 mg, Oral, PRE-OP ONCE, 1 dose, On Sun01/06/16 at 0717, Pre-op 07 ($ Given - Provider: Yuli Cline RN) hydrochlorothiazide (MICROZIDE) capsule 12.5 mg (CANCELED) 12.5 mg, Oral, DAILY, First dose on Sun01/06/16 at 1415, Until Discontinued 2140 ($ Given - Provider: Francia Otero RN)2145 (Not Administered - Provider: Francia Otero RN - Reason: Documented on duplicate row) 927 (Not Administered - Provider: Marguerite Daniels RN - Reason: See Comments - Comment: Blood pressure 112/54) 0945 ($ Given - Provider: Myrna Aaron RN) iron polysaccharides (NIFEREX 150) capsule 150 mg (CANCELED) 150 mg, Oral, DAILY, First dose on Sun01/06/16 at 1400, Until Discontinued 1400 (Not Administered - Provider: Pricilla Maher RN - Reason: Vomiting) 926 ($ Given - Provider: Marguerite Daniels RN) 0945 ($ Given - Provider: Myrna Aaron RN) lidocaine buffered 1 % injection (CANCELED) Infiltration, PRE-OP MULTIPLE, 3 doses, Starting on Piedad 01/06/16 at 0706, Until Piedad 01/06/16 at 1124, May be used (0.2 ml locally to anesthetize prior to insertion if patient has NKA to Lidocaine)., Pre-op 0713 ($ Given - Provider: Yuli Cline RN) losartan (COZAAR) tablet 100 mg (CANCELED) 100 mg, Oral, DAILY, First dose on Sun01/06/16 at 1400, Until Discontinued, Hold for BP [...] ($ Given - Provider: Yuli Cline, TAO) ondansetron (ZOFRAN) injection 4 mg ()(Linked Group 2) 4 mg, Intravenous, EVERY 6 HOURS, 3 doses, First dose on Piedad 01/06/16 at 1530, Last dose on Sun01/07/16 at 0000, Post-op 1530 (Not Administered - Provider: Pricilla Maher RN - Reason: Per Administration Instructions - Comment: also due 1800)1705 ($ Given - Provider: Pricilla Maher RN) 0000 (Not Administered - Provider: Francia Otero RN - Reason: See Comments - Comment: asleep no n/v reported or noted) oxyCODONE CR 12hr (OxyCONTIN) tablet 10 mg (COMPLETED) 10 mg, Oral, EVERY 12 HOURS, 2 doses, First dose on Piedad 01/06/16 at 2100, Last dose on Sun01/07/16 at 0900, Administer 10 hours post-op and morning of POD# Do not crush, chew, or cut in half., Post-op 2140 ($ Given - Provider: Francia Otero, TAO) 0926 ($ Given - Provider: Marguerite Daniels, TAO) oxyCODONE CR 12hr (OxyCONTIN) tablet 20 mg (COMPLETED) 20 mg, Oral, PRE-OP ONCE, 1 dose, On Piedad 01/06/16 at 0706, Do not crush, chew, or cut in half., Pre-op 0713 ($ Given - Provider: Yuli Cline, TAO) scopolamine (TRANSDERM-SCOP) 1.5 MG patch 1.5 mg [...] Pricilla Maher RN - Reason: Per Administration Instructions)2140 ($ Given - Provider: Francia Otero RN) 0926 ($ Given - Provider: Marguerite Daniels RN)2038 ($ Given - Provider: Liana Hauser RN) 0945 ($ Given - Provider: Myrna Aaron, TAO) tranexamic acid (CYKLOKAPRON) bolus 1,000 mg (COMPLETED) [...] Provider: Cynthia Eller RN) morphine 1 mg/ml ELECTRONICS ENGINEERING MANAGER (CANCELED) Intravenous, ELECTRONICS ENGINEERING MANAGER, Starting on Piedad 01/06/16 at 1009, Until 01/08/16 at 1405, ELECTRONICS ENGINEERING MANAGER Dose: 1 mg dose with 12 min lockout (5 mg/hr) Contact physician if respiratory rate falls below 10/minute. If respiratory rate < 7/min administer naloxone (Narcan) 0.2 mg IV STAT, begin oxygen at 4-10 LPM, STOP ELECTRONICS ENGINEERING MANAGER immediately, and contact physician., Post-op 1020 [...] Post-op 1343 ($ Given - Provider: Marguerite Daniels RN)2038 ($ Given - Provider: Liana Hauser RN) 0129 ($ Given - Provider: Liana Hauser, TAO)0704 ($ Given - Provider: Liana Hauser, TAO) hydrocodone-acetaminop hen (NORCO) 5-325 MG tablet 1 [...] doses, First dose on Piedad 01/06/16 at 1400, Last dose on Piedad 01/06/16 at 2200, Total dose 2gm. Give two [...] EVERY 6 HOURS PRN, Nausea/Vomiting, Starting on 01/07/16 at 0600, Until 01/08/16 at 1405, Start [...] Post-op documented in this encounter Care Teams Count Team Member Relationship Specialty Start Date End Date Francisco Long MD PCP - General Internal Medicine 07/03/14 [place] [address] [address] Orthopedic Surgery 04/22/15 documented as of this encounter
--- OUTSIDE RECORDS SUMMARY | 2024-11-16 12:50 | XMS_ITS | Encounter Summary ---
Author Organization [facility] Address [address] [facility] [place] [address] Care Team Providers Care Business Continuity Specialist Name Role Phone Francisco Long MD Primary Care Provider Unavail able Alex Nichols MD Unavailable Usha Bryan RN Unavailable [phone] Micki Cadena MD Unavailable [phone] Encounter Details Date Type Department Care Team (Late st Contact Info) Description 06/30/2015 Therapy Visit [facility] Orthopedics [address] [address] [place] [address] [address] Social History Tobacco Use Types [...] on filedocumented in this encounter Care Teams Business Continuity Specialist Relationship Specialty Start Date End Date Francisco Long MD PCP - General Internal Medicine 07/03/14 [place] [address] [place] [address] Orthopedic Surgery 04/22/15 [place] [address] [place] [address] Pastry Cook 01/07/16 [place] [address] [place] [address] Surgical Oncologist Surgical Oncology 07/05/18 documented as of this encounter
--- OUTSIDE RECORDS SUMMARY | 2024-11-16 12:50 | XMS_ITS | Encounter Summary ---
Author Organization [facility] Address [address] [facility] [address] Care Team Providers Care Asparagus Buncher Name Role Phone Francisco Long MD Primary Care Provider Unavail able Alex Nichols MD Unavailable [phone] Reason for Visit * Reason Onset Date Comments Question 12/24/2015 Encounter Details Date Type Department Care Team (Late st Contact Info) Description 12/24/2015 Telephone [facility] Orthopedics [address] [facility] [address] [place] [address] [place] [address] [facility] [address] [place] [address] Question Social History Tobacco Use [...] Telephone Encounter - Mira Keller MA - 12/24/2015 2:29 PM CST Returned call, LMOM, explained that she could take Tylenol according to directions on bottle EDITED PHARMACY TECHNICIAN * Telephone Encounter - Tania Hubbard MA - 12/24/2015 10:03 AM CST Patient called requesting to know if she could take something for the pain. Patient states that it was suggested to her to take tylenol, but she was unsure if it had aspirin in it. Please advise. EDITED PHARMACY TECHNICIAN documented in this encounter Plan of Treatment Not on file documented as of this encounter Visit Diagnoses Not on filedocumented in this encounter Care Teams Asparagus Buncher Relationship Specialty Start Date End Date Francisco Long MD PCP - General Internal Medicine 07/03/14 [place] [address] [address] [address] Orthopedic Surgery 04/22/15 documented as of this encounter
--- OUTSIDE RECORDS SUMMARY | 2024-11-16 12:50 | XMS_ITS | Encounter Summary ---
Author Organization [facility] Address [address] [facility] [place] [address] Care Team Providers Care Cfo Name Role Phone Francisco Long MD Primary Care Provider Unavail able Alex Nichols MD Unavailable [phone] Usha Bryan RN Unavailable [phone] Reason for Visit * Reason Onset Date Comments Question 01/21/2016 Encounter Details Date Type Department Care Team (Late st Contact Info) Description 01/21/2016 Telephone [facility] Orthopedics [address] [facility] [address] [place] [address] [place] [address] [address] Question Social History Tobacco Use [...] Telephone Encounter - Lupe Duran MA - 01/21/2016 4:08 PM CST Left message that the blood work done in the hospital was not an iron count, but a hgb/hct, which was on the low side, but not dangerously low. STICS TECH * Telephone Encounter - Tania Hubbard MA - 01/21/2016 1:08 PM CST Patient called requesting to know what her Iron count was when she had her blood drawn on 01/06. Please advise STICS TECH documented in this encounter Plan of Treatment Not on file documented as of this encounter Visit Diagnoses Not on filedocumented in this encounter Care Teams Cfo Relationship Specialty Start Date End Date Francisco Long MD PCP - General Internal Medicine 07/03/14 [place] [address] [place] [id number] Orthopedic Surgery 04/22/15 [place] [address] [place] [id number] Trade Mark Examiner 01/07/16 documented as of this encounter
--- OUTSIDE RECORDS SUMMARY | 2024-11-16 12:50 | XMS_ITS | Encounter Summary ---
Author Organization [facility] Health Address [address] [facility] [place] [address] Care Team Providers Care Collateral Specialist Name Role Phone Francisco Long MD Primary Care Provider Unavail able Alex Nichols MD Unavailable [phone] Reason for Visit * Reason Onset Date Comments Question 06/18/2015 Encounter Details Date Type Department Care Team (Late st Contact Info) Description 06/18/2015 Telephone [facility] Orthopedics [address] [facility] [address] [place] [address] [place] [address] [facility] [address] [place] [address] Question Social History Tobacco Use [...] Telephone Encounter - Aditi Greer RN - 06/18/2015 3:14 PM CDT Returned call to Randa, no answer. Called patient. Prescription for celebrex sent to patient's pharmacy. * Telephone Encounter - Dawna Diehl - 06/18/2015 2:54 PM CDT [facility] FROM [facility] CALLED REGARDING SHAUNA. PATIENT IS HAVING A LOT OF PAIN AND IS THE THERAPISTS IS REQUESTING VISTARIL AND THE PHARMACY IS [facility] PHONE NUMBER IS [phone]. PLEASE CALL IF ANY QUESTIONS AT [phone]. documented in this encounter Plan of Treatment Not on file documented as of this encounter Visit Diagnoses Not on filedocumented in this encounter Care Teams Collateral Specialist Relationship Specialty Start Date End Date Francisco Long MD PCP - General Internal Medicine 07/03/14 [place] [address] [place] [id number] Orthopedic Surgery 04/22/15 documented as of this encounter
--- OUTSIDE RECORDS SUMMARY | 2024-11-16 12:51 | XMS_ITS | Encounter Summary ---
Author Organization [facility] Address [address] [place] [address] Care Team Providers Care Jockey'S Agent Name Role Phone Francisco Long MD Primary Care Provider Unavail able Reason for Visit * Reason Comments Establish Care bilateral knees Encounter Details Date Type Department Care Team (Late st Contact Info) Description 08/03/2014 2:20 PM CDT Office Visit [facility] Orthopedics [address] [facility] [address] [place] [address] [place] [address] [facility] [address] [place] [address] Osteoarthrosis, unspecified whether generalized or localized, lower leg (Primary Dx); Knee pain, right Social History Tobacco Use Types Packs/Day Years Used Date Smoking Tobacco: Never Alcohol Use Standard Drinks/Week Comments No 0 (1 standard drink = 0.6 oz pur e alcohol) Sex and Gender Information Value Date Recorded Sex Assigned at Not on file Gender Identity Not on file Sexual Orientation Not on file documented as of this encounter Last Filed Vital Signs Vital Sign Reading Time Taken Comments Blood Pressure - - Pulse - - Temperature - - Respiratory Rate - - Oxygen Saturation - - Inhaled Oxygen Concentration - - Weight 87.1 kg (192 lb) 08/03/2014 2:24 PM CDT Height 170.2 cm (5' 7 ) 08/03/2014 2:24 PM CDT Body Mass Index 30.07 08/03/2014 2:24 PM CDT documented in this encounter Patient Instructions * Patient Instructions* Lupe Duran MA - 08/03/2014 2:25 PM CDT Please call the office with any questions or concerns. documented in this encounter Progress Notes * Cornelio Alba PA-C - 08/03/2014 3:14 PM CDT jose enrique ayalal Cs inj tj class * Mira Keller MA - 08/03/2014 2:31 PM CDT New patient to have both knees evaluated. Both have been scoped, but now very painful with all activities. Xrays in pacs documented in this encounter H&P Notes * Cornelio Alba PA-C - 08/04/2014 11:09 PM CDT DATE OF SERVICE: 08/03/2014 LOCATION: [facility] [address] This is a 68-year-old female here at the office regarding both of her knees. Both knees are symptomatic, especially with walking and standing for a period time. The left one is a little bit more achy compared to the right. She went to the emergency room approximately about a month ago, complaining of knee pain and nothing was damaged. She does have some moderate arthritis. She does have some moderate arthritis in her knees. She is placed on Motrin 800 mg, which has seemed to help out a lot. The knee pain is still progressively worse, especially with walking and standing for a period of time. She has not had any injections in her knees. The knees started to become progressively worse. She has noticed a decline in her overall function. She has not had any operations on her knees. PAST MEDICAL HISTORY: High blood pressure. MEDICATIONS: She is on losartan/hydrochlorothiazide, and ibuprofen 800 mg 3 times a day. ALLERGIES: She is not allergic to any medications. SOCIAL HISTORY: Does not smoke. Does not consume alcohol. CLINICAL EXAMINATION: This is a very pleasant woman, 5 feet 7 inches, 192 pounds. She has good range of motion of the hips equally and bilaterally. Both knees show varus knees with significant mediolateral joint line crepitation, clicking, and mid flexion instability with a positive patellar grind and apprehension test equally and bilaterally. Motion on the knees, she is 4-118 degrees equally and bilaterally. RADIOGRAPHS: Radiographs of her knees flexed view was done, show significant wmkl-ta-lblm degenerative change along each medial joint line. She has kxbi-dg-ddyj along each medial joint lines and in the patellofemoral joint. 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 PLAN: She is going to continue on the ibuprofen. Under sterile preparation, I have injected each knee today with 2 cc of Marcaine and 2 cc of Depo-Medrol. The patient tolerated it well. She is going to attend our total joint class. I will see her back in the office in about 6 weeks. If the knees are symptomatic, then certainly, she is going to call to schedule up for right knee replacement. I have discussed with her in detail today about surgical procedure, risks, complications, and postoperative expectations associated with this. Dr. Nichols agrees with this examination, evaluation, and treatment plan. JO ANN Granados M.D. Electronically Signed 08/05/2014 15:44:03 PJD/MedQ #: [id number] documented in this encounter Procedure Notes * Lisa Adames RT(R) - 08/03/2014 2:44 PM CDTAssociated Order(s): XR KNEE 3 VW RIGHT See progress notes for results documented in this encounter Plan of Treatment Not on file documented as of this encounter Procedures Procedure Name Priority Date/Time Associated Diagnosis Comments XR KNEE RIGHT 3VW Routine 08/03/2014 2:3 9 PM CDT Knee pain, right documented in this encounter Results * XR KNEE 3 VW RIGHT (08/03/2014 2:39 PM CDT) Anatomical Region Laterality Modality Lower Extremity Radiographic Elva ging Narrative 08/03/2014 2:45 PM CDT Lisa Adames, RT(R) ? 08/03/2014 ??2:45 PM See progress notes for results Alex Nichols MD DIAGNOSTIC IMAGING O RDERABLES documented in this encounter Visit Diagnoses Diagnosis Osteoarthrosis, unspecified whether generalized or localized, lower leg- Primary Knee pain, right Pain in joint, lower leg documented in this encounter Administered Medications Administered Medications Medication Order MAR Action Action Date Dose Rate Site Methylprednisolone 40mg Intraarticular Given 08/03/2014 4 mL See comments documented in this encounter Care Teams Jockey'S Agent Relationship Specialty Start Date End Date Francisco Long MD PCP - General Internal Medicine 07/03/14 documented as of this encounter
--- OUTSIDE RECORDS SUMMARY | 2024-11-16 12:51 | XMS_ITS | Encounter Summary ---
Author Organization [facility] Address [address] [place] [address] Care Team Providers Care Software Applications Designer Name Role Phone Francisco Long MD Primary Care Provider Unavail able Reason for Visit * Reason Comments Lower Extremity Problem bilateral knees, injected on 08/03/14 Encounter Details Date Type Department Care Team (Late st Contact Info) Description 10/08/2014 10:50 AM GROUP CARE WORKER Office Visit [facility] Orthopedics [address] [facility] [address] [place] [address] Cornelio Alba PA-C [address] [facility] [address] [place] [phone] Osteoarthrosis, unspecified whether generalized or localized, lower [...] on file documented as of this encounter Patient Instructions * Patient Instructions* Lupe Duran MA - 10/08/2014 10:41 AM GROUP CARE WORKER Please call the office with any questions or concerns. P CARE WORKER documented in this encounter Progress Notes * Cornelio Alba PA-C - 10/08/2014 11:12 AM CST djd bilat knees other aches Rheumatoid panel, tj class will for sot or inj P CARE WORKER * Lupe Duran MA - 10/08/2014 10:41 AM CST Pt here for follow up after having both knees injected 08/03/14. P CARE WORKER documented in this encounter H&P Notes * Cornelio Alba PA-C - 10/12/2014 11:04 PM CST DATE OF SERVICE: 10/08/2014 LOCATION: [facility] [address] Jolene returned to our office today for re-evaluation of her knees. She has uick-wx-fepu arthritis along each medial joint lines and underlying history of rheumatoid arthritis. The knees are doing pretty good at this point in time. CLINICAL EXAMINATION: She has good range of motion of the hips. She has varus knees. Skin integrity is good. She is neurovascularly intact distally. She has good motion, but it is about 4-118 degrees. IMPRESSION: Bilateral degenerative joint disease of the knees with underlying history of rheumatoid. PLAN: At this point in time, she is going to give us a call to schedule up a knee replacement. I have discussed with her in detail surgical procedure, risks, complications, and postoperative expectations associated with this. JO ANN Granados PA-C Electronically Signed 10/13/2014 08:21:41 Electronically Signed 10/13/2014 08:21:41 PJD/MedQ #: [id number] P CARE WORKER documented in this encounter Plan of Treatment Not on file documented as of this encounter Visit Diagnoses Diagnosis Osteoarthrosis, unspecified whether generalized or localized, lower leg- Primary documented in this encounter Care Teams Software Applications Designer Relationship Specialty Start Date End Date Francisco Long MD PCP - General Internal Medicine 07/03/14 documented as of this encounter
--- OUTSIDE RECORDS SUMMARY | 2024-11-16 12:51 | XMS_ITS | Encounter Summary ---
Author Organization [facility] Address [address] [facility] [address] [facility] [place] [address] Care Team Providers Care Aircraft Body Repairer Name Role Phone Francisco Long MD Primary Care Provider Unavail able Alex Nichols MD Unavailable Reason for Visit * Reason Comments Pain Knee left knee Encounter Details Date Type Department Care Team (Late st Contact Info) Description 04/22/2015 11:00 AM CDT Office Visit [facility] Orthopedics [address] [facility] [address] [place] [address] Cornelio Alba PA-C [address] [facility] [address] [place] [phone] Osteoarthrosis, unspecified whether generalized or localized, lower [...] Progress Notes * Cornelio Alba PA-C - 04/22/2015 10:34 AM CDT djd bilat knee Cs in j RA benjie left tka * Mira Keller MA - 04/22/2015 9:34 AM CDT Very painful left knee, arrived on crutches, may want injection but not sure if it's time for TKA. Xrays in pacs from 08/09/14. documented in this encounter H&P Notes * Cornelio Alba PA-C - 04/26/2015 8:25 AM CDT DATE OF SERVICE: 04/22/2015 The patient returns to our office today for re-evaluation of both her knees. Both knees are symptomatic, especially with walking and standing for a period of time. She has been diagnosed with rheumatoid arthritis. She is on prednisone and methotrexate. The left knee is more symptomatic than the right. CLINICAL EXAMINATION: This is a very pleasant woman, sitting on the examination table. She has good range motion of the hips equally and bilaterally. She has no groin pain. Both knees show varus knees with medial and lateral joint line crepitation, clicking, and mid flexion instability with motion of 4 to 118 degrees. IMPRESSION: Bilateral degenerative joint disease of the knees, left one more symptomatic than the right, underlying history of rheumatoid arthritis. PLAN: Under sterile preparation, I have injected each knee today with 2 cc of Marcaine and 2 cc of Depo-Medrol. The patient tolerated it well. She is going to schedule up for a left knee replacement. I have discussed with her surgical procedure, risks, complications, and postoperative expectations associated this. JO ANN Granados PA-C Electronically Signed 04/26/2015 15:29:26 Electronically Signed 04/26/2015 15:29:26 PJD/MedQ #: [id number] documented in this encounter Procedure Notes * Myrna Adler - 04/22/2015 10:04 AM CDTAssociated Order(s): XR KNEE BILAT 3 VIEWS See progress notes for results documented in this encounter Plan of Treatment Not on file documented as of this encounter Procedures Procedure Name Priority Date/Time Associated Diagnosis Comments XR KNEE BILAT 3VW Routine 04/22/2015 10: 07 AM CDT Osteoarthrosis, unspecified whether generalized or localized, lower leg documented in this encounter Results * XR KNEE BILAT 3 VIEWS (04/22/2015 10:07 AM CDT) Anatomical Region Laterality Modality Lower Extremity Radiographic Elva ging Narrative 04/22/2015 12:00 PM CDT Myrna Adler ? 04/22/2015 12:00 PM See progress notes for results Cornelio Alba PA-C DIAGNOSTIC IMAGING ORDERABLES documented in this encounter Visit Diagnoses Diagnosis Osteoarthrosis, unspecified whether generalized or localized, lower leg- Primary documented in this encounter Administered Medications Administered Medications Medication Order MAR Action Action Date Dose Rate Site Methylprednisolone 40mg Intraarticular Given 04/22/2015 4 mL See comments documented in this encounter Care Teams Aircraft Body Repairer Relationship Specialty Start Date End Date Francisco Long MD PCP - General Internal Medicine 07/03/14 [place] [address] [place] [address] Orthopedic Surgery 04/22/15 documented as of this encounter
--- OUTSIDE RECORDS SUMMARY | 2024-11-16 12:51 | XMS_ITS | Encounter Summary ---
Author Organization [facility] Health Address [facility] [facility] [place] [address] Care Team Providers Care Fence Manufacture Supervisor Name Role Phone Francisco Long MD Primary Care Provider Unavail able Alex Nichols MD Unavailable [phone] Encounter Details Date Type Department Care Team (Latest Contact Info) Description 05/19/2015 8:10 AM CDT - 05/19/2015 11:59 PM CDT Hospital Encounter [facility] [address] [place] [address] [place] [address] [facility] [address] [place] [address] Discharge Disposition: Home or Self [...] - Inhaled Oxygen Concentration - - Weight 87.5 kg (193 lb) 05/19/2015 8:10 AM CDT Height 170.2 cm (5' 7 ) 05/19/2015 8:10 AM CDT Body Mass Index 30.23 05/19/2015 8:10 AM CDT documented in this encounter Medications at Time [...] 07/24/15 for blood clot prevention 06/12/2015 07/24/2015 methotrexate 2.5 MG tablet Take 15 mg by mouth every 7 days Sunday06/11/2015 oxyCODONE-acetaminophen (PERCOCET) 10-325 MG tablet Take 0.5-1 Tabs by mouth every 6 hours as needed 90 Tab 0 06/11/2015 07/23/2015 documented as of this encounter Plan of Treatment Not on file documented as of this encounter Procedures Procedure Name Priority Date/Time Associated Diagnosis Comments CULTURE MSSA/MRSA Routine 05/19/2015 8:4 1 AM CDT Preoperative examination EKG 12-LEAD Routine 05/19/2015 8:31 AM CDT Preoperative examination documented in this encounter Results * CULTURE MSSA/MRSA (05/19/2015 8:41 AM CDT) Culture Negative for MRSA/MSSA SUZANNE 05/20/2015 4:14 PM CDT [facility] MICROBIOLOGY Microbiology SPECIMEN FROM NASAL FOSSAE / Unknown 05/19/2015 8:41 AM CDT 05/19/2015 9:29 AM CDT Alex Nichols MD LAB - MICROBIOLOGY O RDERABLES [facility] MICROBIOLOGY [address] [phone] * EKG 12-LEAD (05/19/2015 8:31 AM CDT) Ventricular Rate 69 BPM [facility] Atrial Rate 69 BPM [facility] P-R Interval 188 ms [facility] QRS Duration ms 102 ms [facility] Q-T Interval ms 412 ms [facility] QTC Calculation (Bezet) 441 ms [facility] Calculated P Ucon 52 degrees [facility] Calculated R Ucon -19 degrees [facility] Calculated T Ucon 60 degrees [facility] Interpretation EKG Normal sinus rhythm Incomplete right bundle branch block Borderline ECG No previous ECGs available Confirmed by MABEL MADISON MD ([id number]) on 05/19/2015 12:36:25 PM [facility] 05/19/2015 8:31 AM CDT 05/19/2015 12:36 PM CDT Alex Nichols MD ECG ORDERABLES [facility] documented in this encounter Visit Diagnoses Diagnosis Preoperative examination- Primary Preoperative examination, unspecified documented in this encounter Care Teams Fence Manufacture Supervisor Relationship Specialty Start Date End Date Francisco Long MD PCP - General Internal Medicine 07/03/14 [place] [address] [place] [id number] Orthopedic Surgery 04/22/15 documented as of this encounter
--- OUTSIDE RECORDS SUMMARY | 2024-11-16 12:51 | XMS_ITS | Encounter Summary ---
Author Organization [facility] Address [address] [place] [address] Care Team Providers Care Snaker Name Role Phone Francisco Long MD Primary Care Provider Unavail able Reason for Visit * Reason Comments Lower Extremity Problem states she has a hx of right knee pain , has a [facility]ment to [facility] but now she has reecntly tripped and has left knee pain, Encounter Details Date Type Department Care Team (Late st Contact Info) Description 07/11/2014 11:30 AM CDT - 07/11/2014 1:39 PM CDT Emergency ER at [facility] [id number] [place] [id number] Cierra Mtz PA-C [address] [place] [address] Emergency Department [place] [phone] Knee pain, acute, left (Primary Dx); Osteoarthritis of left knee Discharge Disposition: Home or Self Care Social [...] Sign Reading Time Taken Comments Blood Pressure 155/65 07/11/2014 11:46 AM CDT Pulse 75 07/11/2014 11:46 AM CDT Temperature 37.1 ??C (98.8 ??F) 07/11/2014 11:46 AM C DT Respiratory Rate 18 07/11/2014 11:46 AM CDT Oxygen Saturation 98% 07/11/2014 11:46 AM CDT Inhaled Oxygen Concentration - - Weight - - Height - - Body Mass Index - - documented in this encounter Discharge Instructions * Discharge Instructions* Cierra Mtz PA-C - 07/11/2014 12:57 PM CDT Images from the original note were not included. Knee Pain The knee is the complex joint between your thigh and your lower leg. It is made up of bones, tendons, ligaments, and cartilage. The bones that make up the knee are: ?? The femur in the thigh. ?? The tibia and fibula in the lower leg. ?? The patella or kneecap riding in the groove on the lower femur. CAUSES Knee pain is a common complaint with many causes. A few of these causes are: ?? Injury, such as: ?? A ruptured ligament or tendon injury. ?? Torn cartilage. ?? Medical conditions, such as: ?? Gout ?? Arthritis ?? Infections ?? Overuse, over training or overdoing a physical activity. Knee pain can be minor or severe. Knee pain can accompany debilitating injury. Minor knee problems often respond well to self-care measures or get well on their own. More serious injuries may need medical intervention or even surgery. SYMPTOMS The knee is complex. Symptoms of knee problems can vary widely. Some of the problems are: ?? Pain with movement and weight bearing. ?? Swelling and tenderness. ?? Buckling of the knee. ?? Inability to straighten or extend your knee. ?? Your knee locks and you cannot straighten it. ?? Warmth and redness with pain and fever. ?? Deformity or dislocation of the kneecap. DIAGNOSIS Determining what is wrong may be very straight forward such as when there is an injury. It can alsobe challenging because of the complexity of the knee. Tests to make a diagnosis may include: ?? Your caregiver taking a history and doing a physical exam. ?? Routine X-rays can be used to rule out other problems. X-rays will not reveal a cartilage tear. Some injuries of the knee can be diagnosed by: ?? Arthroscopy a surgical technique by which a small video camera is inserted through tiny incisions on the sides of the knee. This procedure is used to examine and repair internal knee joint problems. Tiny instruments can be used during arthroscopy to repair the torn knee cartilage (meniscus). ?? Arthrography is a radiology technique. A contrast liquid is directly injected into the knee joint. Internal structures of the knee joint then become visible on X-ray film. ?? An MRI scan is a non x-ray radiology procedure in which magnetic rodgers and a computer produce two- or three-dimensional images of the inside of the knee. Cartilage tears are often visible using an MRI scanner. MRI scans have largely replaced arthrography in diagnosing cartilage tears of the knee. ?? Blood work. ?? Examination of the fluid that helps to lubricate the knee joint (synovial fluid). This is done by taking a sample out using a needle and a syringe. TREATMENT The treatment of knee problems depends on the cause. Some of these treatments are: ?? Depending on the injury, proper casting, splinting, surgery or physical therapy care will be needed. ?? Give yourself adequate recovery time. Do not overuse your joints. If you begin to get sore during workout routines, back off. Slow down or do fewer repetitions. ?? For repetitive activities such as cycling or running, maintain your strength and nutrition. ?? Alternate muscle groups. For example if you are a weight screen printing cloth spreader, work the upper body on one day and the lower body the next. ?? Either tight or weak muscles do not give the proper support for your knee. Tight or weak musclesdo not absorb the stress placed on the knee joint. Keep the muscles surrounding the knee strong. ?? Take care of mechanical problems. ?? If you have flat feet, orthotics or special shoes may help. See your caregiver if you need help. ?? Arch supports, sometimes with wedges on the inner or outer aspect of the heel, can help. These can shift pressure away from the side of the knee most bothered by osteoarthritis. ?? A brace called an plate shop helper brace also may be used to help ease the pressure on the most arthritic side of the knee. ?? If your caregiver has prescribed crutches, braces, wraps or ice, use as directed. The acronym for this is [place]. This means protection, rest, ice, compression and elevation. ?? Nonsteroidal anti-inflammatory drugs (NSAID's), can help relieve pain. But if taken immediately after an injury, they may actually increase swelling. Take NSAID's with food in your stomach. Stop them if you develop stomach problems. Do not take these if you have a history of ulcers, stomach painor bleeding from the bowel. Do not take without your caregiver's approval if you have problems with fluid retention, heart failure, or kidney problems. ?? For ongoing knee problems, physical therapy may be helpful. ?? Glucosamine and chondroitin are lpyt-dde-xydewfp dietary supplements. Both may help relieve the pain of osteoarthritis in the knee. These medicines are different from the usual anti-inflammatory drugs. Glucosamine may decrease the rate of cartilage destruction. ?? Injections of a corticosteroid drug into your knee joint may help reduce the symptoms of an arthritis flare-up. They may provide pain relief that lasts a few months. You may have to wait a few months between injections. The injections do have a small increased risk of infection, water retention and elevated blood sugar levels. ?? Hyaluronic acid injected into damaged joints may ease pain and provide lubrication. These injections may work by reducing inflammation. A series of shots may give relief for as long as 6 months. ?? Topical painkillers. Applying certain ointments to your skin may help relieve the pain and stiffness of osteoarthritis. Ask your pharmacist for suggestions. Many over the-counter products are approved for temporary relief of arthritis pain. ?? In some countries, doctors often prescribe topical NSAID's for relief of chronic conditions suchas arthritis and tendinitis. A review of treatment with NSAID creams found that they worked as wellas oral medications but without the serious side effects. PREVENTION ?? Maintain a healthy weight. Extra pounds put more strain on your joints. ?? Get strong, stay limber. Weak muscles are a common cause of knee injuries. Stretching is important. Include flexibility exercises in your workouts. ?? Be smart about exercise. If you have osteoarthritis, chronic knee pain or recurring injuries, you may need to change the way you exercise. This does not mean you have to stop being active. If yourknees ache after jogging or playing basketball, consider switching to swimming, water aerobics or other low-impact activities, at least for a few days a week. Sometimes limiting high-impact activities will provide relief. ?? Make sure your shoes fit well. Choose footwear that is right for your sport. ?? Protect your knees. Use the proper gear for knee-sensitive activities. Use kneepads when playingvolleyball or laying carpet. Buckle your seat belt every time you drive. Most shattered kneecaps occur in car accidents. ?? Rest when you are tired. SEEK MEDICAL CARE IF: You have knee pain that is continual and does not seem to be getting better. SEEK IMMEDIATE MEDICAL CARE IF: Your knee joint feels hot to the touch and you have a high fever. MAKE SURE YOU: ?? Understand these instructions. ?? Will watch your condition. ?? Will get help right away if you are not doing well or get worse. Document Released: 09/08/2008 Document Revised: 02/03/2013 Document Reviewed: 09/08/2008 ExitCare?? Patient Information ??2014 [employer]. Degenerative Arthritis You have osteoarthritis. This is the wear and tear arthritis that comes with aging. It is also called degenerative arthritis. This is common in people past middle age. It is caused by stress on the joints. The large weight bearing joints of the lower extremities are most often affected. The knees, hips, back, neck, and hands can become painful, swollen, and stiff. This is the most common type of arthritis. It comes on with age, carrying too much weight, or from an injury. Treatment includes resting the sore joint until the pain and swelling improve. Crutches or a walkermay be needed for severe flares. Only take ggck-ygl-xauzpno or prescription medicines for pain, discomfort, or fever as directed by your caregiver. Local heat therapy may improve motion. Cortisone shots into the joint are sometimes used to reduce pain and swelling during flares. Osteoarthritis is usually not crippling and progresses slowly. There are things you can do to decrease pain: ?? Avoid high impact activities. ?? Exercise regularly. ?? Low impact exercises such as walking, biking and swimming help to keep the muscles strong and keep normal joint function. ?? Stretching helps to keep your range of motion. ?? Lose weight if you are overweight. This reduces joint stress. In severe cases when you have pain at rest or increasing disability, joint surgery may be helpful. See your caregiver for follow-up treatment as recommended. SEEK IMMEDIATE MEDICAL CARE IF: ?? You have severe joint pain. ?? Marked swelling and redness in your joint develops. ?? You develop a high fever. Document Released: 11/12/2006 Document Revised: 02/03/2013 Document Reviewed: 04/13/2008 ExitCare?? Patient Information ??2013 [employer]. documented in this encounter Medications at Time of Discharge Medication Sig Dispensed Refills Start Date End Date cyclobenzaprine (FLEXERIL) 10 MG tablet Take 1 tablet by mouth 3 times daily as needed for Muscle Spasms. 15 tablet 0 07/11/2014 05/19/2015 hydrocodone-acetaminophe n (NORCO) 5-325 MG tablet Take 1 tablet by mouth every 4 hours as needed for Pain. 15 tablet 0 07/11/2014 05/19/2015 ibuprofen (MOTRIN) 800 MG tablet Take 1 tablet by mouth 3 times daily as needed for Pain. 20 tablet 0 07/11/2014 05/19/2015 documented as of this encounter ED Notes * Jeni Villanueva RN - 07/11/2014 1:37 PM CDT Pt given discharge instructions and pt validated plan of care and follow up. Educated pt on crutches use. * Flores Coburn RN - 07/11/2014 11:48 AM CDT PA at bedside. * Flores Coburn RN - 07/11/2014 11:46 AM CDT Pt states she has a history of right knee pain, Pt states yesterday she started to have left knee pain. Rates pain a 3 out of 10. * Cierra Mtz PA-C - 07/11/2014 11:41 AM CDT Provider contact with the patient: 07/11/2014 11:41 Jolene Cedillo [id number] [facility] EM[facility]PARTMENT History Chief Complaint Patient presents with ??? Lower Extremity Problem states she has ahx of right knee pain , has a na ppointment to [facility] but now she has reecntly tripped and has left knee pain, Lower Extremity Problem The history is provided by the patient. The incident occurred yesterday. The incident occurred at home. There was no injury mechanism. The context of the injury is unknown. The pain is present in theleft knee. The quality of the pain is described as throbbing. The pain is severe. The pain has beenconstant since onset. Associated symptoms include decreased ROM and tenderness.Pertinent negatives include no numbness, no loss of motion, no muscle weakness, no loss of sensation, no tingling, no fever, no wound drainage, no redness, no streaking, no bleeding, no swelling, no deformity, no erythema, no ecchymosis or no abscess.She reports no foreign bodies present. There have been prior injuriesto these areas. The symptoms are relieved by rest. The symptoms are aggravated by activity, extension and flexion. She has tried rest for the symptoms. The treatment provided moderate relief. Past Medical History Diagnosis Date ??? HTN (hypertension) No past surgical history on file. No family history on file. History Social History ??? Marital Status: Spouse Name: N/A Number of Children: N/A ??? Years of Education: N/A Occupational History ??? Not on file. Social History Main Topics ??? Smoking status: Never Smoker ??? Smokeless tobacco: Not on file ??? Alcohol Use: No ??? Drug Use: No ??? Sexual Activity: Not on file Other Topics Concern ??? Not on file Social History Narrative Review of Systems Review of Systems Constitutional: Negative for fever and chills. Musculoskeletal: Positive for joint swelling, arthralgias and gait problem. Neurological: Negative for tingling and numbness. Physical Exam There were no vitals taken for this visit. Physical Exam Constitutional: She is oriented to person, place, and time. She appears well- developed and well-nourished. Cardiovascular: Pulses: Dorsalis pedis pulses are 2+ on the left side. Posterior tibial pulses are 2+ on the left side. Musculoskeletal: Left knee: Tenderness found. MCL tenderness noted. No medial joint line, no lateral joint line, no LCL and no patellar tendon tenderness noted. Neurological: She is alert and oriented to person, place, and time. Skin: Skin is warm and dry. Nursing note and vitals reviewed. Medications Current Outpatient Prescriptions Medication Sig Dispense Refill ??? hydrocodone-acetaminophen (NORCO) 5-325 MG tablet Take 1 tablet by mouth every 4 hours as needed for Pain. 15 tablet 0 ??? ibuprofen (MOTRIN) 800 MG tablet Take 1 tablet by mouth 3 times daily as needed for Pain. 20 tablet 0 ??? cyclobenzaprine (FLEXERIL) 10 MG tablet Take 1 tablet by mouth 3 times daily as needed for Muscle Spasms. 15 tablet 0 Procedures Procedures ECG Interpretation ECG Interpretation Lab Interpretation Oxygen Saturation Interpretation The oxygen saturation level is: 98%. Measurement frequency: Spot Check. No results found for this visit on 07/11/14. XR KNEE 4+ VW LEFT Final Result: XR KNEE 1 OR 2 VW LEFT (Canceled) Progress Notes Afebrile, VSS, NAD, SPO2 98% RA ED Course Pt refused pain medication Xray left knee - osteoarthritis with advanced medial and patellofemoral compartment joint space loss and osteophytes. Nonaggressive bony lesion distal left femur Placed in knee mckayla wrap and crutches Discussed xrays and bone lesion for follow-up and possibility of needing additional imaging. Please call Dr Nichols for follow-up Medical Decision Making I have reviewed the: Previous Chart, Nursing Notes and Vitals. I have interpreted the following results: X-Ray and Oxygen Saturation. Orders Placed This Encounter ??? XR KNEE 4+ VW LEFT ??? hydrocodone-acetaminophen (NORCO) 5-325 MG tablet ??? ibuprofen (MOTRIN) 800 MG tablet ??? cyclobenzaprine (FLEXERIL) 10 MG tablet I have given the patient instructions regarding her diagnosis, expectations, follow up, and return precautions. I explained to the patient that emergent conditions may arise and to return to the ER for new, worsening, or any persistent conditions. I've explained the importance of following up with her doctor--Francisco Long--(or the referral physician) as instructed. The patient verbalized understanding of the discharge instructions. Diagnosis: Final diagnoses: Knee pain, acute, left (Primary) Osteoarthritis of left knee New Medications: New Prescriptions CYCLOBENZAPRINE (FLEXERIL) 10 MG TABLET Take 1 tablet by mouth 3 times daily as needed for Muscle Spasms. HYDROCODONE-ACETAMINOPHEN (NORCO) 5-325 MG TABLET Take 1 tablet by mouth every 4 hours as needed for Pain. IBUPROFEN (MOTRIN) 800 MG TABLET Take 1 tablet by mouth 3 times daily as needed for Pain. I have advised the patient to follow-up with: Francisco Long MD [address] [facility] [address] [facility] [id number] [place] [id number] [address] [facility] [id number] Call For follow-up Disposition: Discharged 07/11/2014 12:10 PM documented in this encounter Plan of Treatment Not on file documented as of this encounter Procedures Procedure Name Priority Date/Time Associated Diagnosis Comments XR KNEE LEFT 4VW OR MORE STAT 07/11/2014 12:15 PM CDT Knee pain, acute, left documented in this encounter Results * XR KNEE 4+ VW LEFT (07/11/2014 [...] Nonaggressive bony lesion distal left femur. Cierra IRAHETA-Patricia DIAGNOSTIC IMAGING ORDERABLES documented in this encounter Visit Diagnoses Diagnosis Knee pain, acute, left- Primary Osteoarthritis of left knee Osteoarthrosis, unspecified whether generalized or localized, lower leg documented in this encounter Care Teams Snaker Relationship Specialty Start Date End Date Francisco Long MD PCP - General Internal Medicine 07/03/14 documented as of this encounter
--- OUTSIDE RECORDS SUMMARY | 2024-11-16 12:52 | XMS_ITS | Encounter Summary ---
Author Organization [facility] Healthcare Address [address] [place] [address] Care Team Providers Care Medical Imaging Specialist Name Role Phone Neil Ag MD PhD Unavailable Ita Vazquez MD Unavailable Caron Mohan MD Unavailable [phone] Pebbles Felton MD Unavailable [phone] Mariangel Quiñonez MD Primary Care Provide r Reason for Visit * Reason Comments Hypertension 6mo f/u Diabetes Encounter Details Date Type Department Care Team (Late st Contact Info) Description 06/26/2024 1:00 PM CDT Office Visit [facility] Medical Group Primary Care at [address] [place] [address] Mariangel Quiñonez MD [address] [place] [address] [address] [place] [address] Essential hypertension (Primary Dx); 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); Iron deficiency anemia secondary to inadequate dietary iron intake Social History Tobacco Use Types Packs/Day Years Used Date Smoking Tobacco: Never Smokeless Tobacco: Never Tobacco Cessation:Counseling Given: Not Answered Alcohol Use Standard Drinks/Week Comments No 0 (1 standard drink = 0.6 oz pur e alcohol) AUDIT-C Answer Date Recorded Q1: How often do you have a drink containing alcohol? Never 12/06/2023 Q2: How many drinks containi ng alcohol do you have on a typical day when you are drinking? Patient does not drink Q3: How often do you have si x or more drinks on one occasion? Never 12/06/2023 Overall Financial Resource Strain (CARDIA) Answe r Date Recorded Difficulty of Paying Living Expenses Not hard at all 12/05/2019 PHQ-2 Answer Date Recorded PHQ-2 Total Score (If total score is 3 or more points, staff should administer the PHQ-9) 0 06/26/2024 Hunger Vital Sign Answer Date Recorded Worried About Running Out of Food in the Last Ye ar Never true 12/05/2019 Ran Out of Food in the Last Year Never true 12/05/2019 PRAPARE - Transportation Answer Date Re corded Lack of Transportation (Medical) No 12/05/2019 Lack of Transportation (Non-Medical) No 12/05/2019 Comments No Sex and Gender Information Value Date Recorded Sex Assigned at Not on file 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 Gender Identity Not on file Sexual Orientation Not on file documented as of this encounter Last Filed Vital Signs Vital Sign Reading Time Taken Comments Blood Pressure 126/72 06/26/2024 12:54 PM CDT Pulse 83 06/26/2024 12:54 PM CDT Temperature 36.7 ??C (98 ??F) 06/26/2024 12:54 PM CDT Respiratory Rate 16 06/26/2024 12:54 PM CDT Oxygen Saturation 96% 06/26/2024 12:54 PM CDT Inhaled Oxygen Concentration - - Weight 81.2 kg (179 lb) 06/26/2024 12:54 PM CDT Height 170.2 cm (5' 7 ) 06/26/2024 12:54 PM CDT Body Mass Index 28.04 06/26/2024 12:54 PM CDT documented in this encounter Patient Instructions * Patient Instructions* Mariangel Quiñonez MD - 06/26/2024 1:00 PM CDT My paramedical aide and I are thankful you have trusted us with your care, and hope that you received EXCELLENT care today! Please do not hesitate to call if you have any questions or concerns. You may receive a phone call or text asking about your care today. We would love to hear your input and again, hope your visit was as EXCELLENT as possible, even if you were not feeling your best! -Dr. Quiñonez * Attachments The following attachments cannot be sent through Care Everywhere. * Iron Rich Diet (Oil Spot Washer) (Faroese) documented in this encounter Progress Notes * Mariangel Quiñonez MD - 06/26/2024 1:00 PM CDT Images from the original note were not included. Subjective/Objective Patient ID: Jolene Cedillo is a 78 y.o. female. Chief Complaint Hypertension (6mo f/u) and Diabetes HPI 78 y.o.female coming in for follow up on htn and diabetes. She denies chest pain palpitations sob lightheadedness dizziness hypoglycemic episodes or any other symptoms. She is tolerating her medications well She has not been checking her blood pressure at home She does not check the fingersticks She has a history of low iron. We discussed her levels today and will give a printout on iron rich diets. Review of Systems Constitutional: Negative for chills and fever. Respiratory: Negative for cough and shortness of breath. Cardiovascular: Negative for chest pain. Gastrointestinal: Negative for abdominal pain. Vitals: 06/26/24 1254 BP: 126/72 BP Location: Left arm Patient Position: Sitting Pulse: 83 Resp: 16 Temp: 36.7 ??C (98 ??F) SpO2: 96% Weight: 81.2 kg (179 lb) Height: 170.2 cm (5' 7 ) Office Visit on 06/26/2024 Component Date Value SCRIBED HM DIABETIC DILA* 08/28/2023 Normal Physical Exam Constitutional: General: She is not in acute distress. Appearance: She is well-developed. Neck: Thyroid: No thyromegaly. Cardiovascular: Rate and Rhythm: Normal rate and regular rhythm. Heart sounds: Normal heart sounds. No murmur (no edema) heard. Pulmonary: Effort: Pulmonary effort is normal. No respiratory distress. Breath sounds: Normal breath sounds. No wheezing or rales. Musculoskeletal: Cervical back: Normal range of motion and neck supple. Lymphadenopathy: Cervical: No cervical adenopathy (no bruits). Assessment/Plan Diagnoses and all orders for this visit: Essential hypertension (Primary) Assessment & Plan: Bp in the office today BP Readings from Last 1 Encounters: 12/06/23 132/80 Continue current regimen of carvedilol and losartan 100mg daily Recommend DASH diet, heart-healthy lifestyle, exercise. Discussed the risks of hypertension. F/u in 6 months 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) Assessment & Plan: The patient was counseled on a heart-healthy, diabetic-friendly diet, as well as life-style modification. Education provided on the diagnosis and risks of the disease. We will continue to monitor routine labs. Additionally, She was counseled on routine diabetic eye exams, foot exams, and other preventive care. Most recent A1c on file: Lab Results Component Value Date HGBA1C 6.5 (H) 06/20/2024 Diet control Unable to tolerate statin losartan at 25mg daily A1c ordered today Micro/Cr ur ratio ordered F/u in 6 months Iron deficiency anemia secondary to inadequate dietary iron intake Assessment & Plan: Stable / clinically quiescent. Will continue to monitor. Iron panel ordered for 6 months Side effects, risks, interactions reviewed with patient. Indications for testing discussed. Any further problems to contact us. She was told what to look out for and verbalized understanding. The patient was given the opportunity to have all questions answered today and was in agreement with the plan of care. Mariangel Quiñonez MD documented in this encounter Miscellaneous Notes * Assessment & Plan Note - Mariangel Quiñonez MD - 06/26/2024 1:16 PM CDT Associated Problem(s): Iron deficiency anemia Stable / clinically quiescent. Will continue to monitor. Iron panel ordered for 6 months * Assessment & Plan Note - Mariangel Quiñonez MD - 06/26/2024 6:59 AM CDT Associated Problem(s): 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) The patient was counseled on a heart-healthy, diabetic-friendly diet, as well as life-style modification. Education provided on the diagnosis and risks of the disease. We will continue to monitor routine labs. Additionally, She was counseled on routine diabetic eye exams, foot exams, and other preventive care. Most recent A1c on file: Lab Results Component Value Date HGBA1C 6.5 (H) 06/20/2024 Diet control Unable to tolerate statin losartan at 25mg daily A1c ordered today Micro/Cr ur ratio ordered F/u in 6 months * Assessment & Plan Note - Mariangel Quiñonez MD - 06/26/2024 6:59 AM CDT Associated Problem(s): Essential hypertension Bp in the office today BP Readings from Last 1 Encounters: 12/06/23 132/80 Continue current regimen of carvedilol and losartan 100mg daily Recommend DASH diet, heart-healthy lifestyle, exercise. Discussed the risks of hypertension. F/u in 6 months documented in this encounter Plan of Treatment Not on file documented as of this encounter Procedures Procedure Name Priority Date/Time Associated Diagnosis Comments DIABETES EYE EXAM Routine 08/28/2023 12:56 PM CDT documented in this encounter Results * DIABETES EYE EXAM (08/28/2023 12:56 PM CDT) SCRIBED DIABETIC DILATED EYE EXAM Normal Historical Provider HEALTH MAINTENANCE Final Result documented in this encounter Visit Diagnoses Diagnosis Essential hypertension- Primary Unspecified essential hypertension 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) Iron deficiency anemia secondary to inadequate dietary iron intake documented in this encounter Discontinued Medications Medication Sig Discontinue Reason Start Date End Da te albuterol HFA (PROVENTIL HFA,VENTOLIN HFA,PROAIR HFA) 90 mcg/actuation inhalerIndications:Whee zing Inhale 2 puffs every 6 (six) hours as needed for wheezing Patient Discharge 12/08/2022 06/26/2024 carvediloL (COREG) 6.25 mg tablet TAKE ONE TABLET BY MOUTH TWICE DAILY WITH MEALS Patient Discharge 05/16/2022 06/26/2024 cholecalciferol (VITAMIN D-3) 400 unit capsule 1,000 Units Patient Discharge 06/26/2024 famotidine (PEPCID) 40 mg tablet Take 1 tablet (40 mg total) by mouth daily Patient Discharge 12/30/2020 06/26/[address] (PROTONIX) 40 mg EC tablet Take 1 tablet (40 mg total) by mouth daily 03/02/2022 06/26/2024 predniSONE (DELTASONE) 20 mg tablet TAKE 2 TABLETS BY MOUTH DAILY FOR 5 DAYS Patient Discharge 02/08/2023 06/26/2024 cyclobenzaprine (FLEXERIL) 5 mg tablet Take 1 tablet (5 mg total) by mouth 3 (three) times a day as needed for muscle spasms Patient Discharge 12/06/2023 06/26/2024 documented as of this encounter Historical Medications * This list may reflect changes made after this encounter. iron [id number] uc-stoma (MULTIGEN) 70 mg-150 mg-10 mcg-2 mg-75 mg tablet 1 tablet daily added in this encounter Care Teams Medical Imaging Specialist Relationship Specialty Start Date End Date Mariangel Quiñonez MD 2 [facility] [address] [address] PCP - General Family Medicine 05/16/22 Neil Ag MD PhD 6 [facility] [place] [address] Radiation Oncologist Radiation Oncology 12/17/18 [place] [address] [facility] [address] [place] [address] Referring Physician General Surgery 12/17/18 [place] [address] [address] [address] Medical Oncologist/Hydraulics Teacher Medical Oncology 12/17/18 [place] [address] [place] [address] Consulting Physician Gastroenterology 01/07/20 documented as of this encounter
--- OUTSIDE RECORDS SUMMARY | 2024-11-16 12:52 | XMS_ITS | Encounter Summary ---
Author Organization [facility] Healthcare Address [address] [place] [address] Care Team Providers Care R D Manager Name Role Phone Neil Ag MD PhD Unavailable Ita Vazquez MD Unavailable Caron Mohan MD Unavailable Pebbles Felton MD Unavailable [phone] Mariangel Quiñonez MD Primary Care Provide r Encounter Details Date Type Department Care Team (Late st Contact Info) Description 06/26/2024 Orders Only [facility] Medical Group Primary Care at [address] [place] [address] Mariangel Quiñonez MD [address] [place] [address] [address] [place], [place] [id number] Routine health maintenance (Primary Dx); Need for hepatitis B screening test; 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); [...] you are drinking? 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 Gender Identity Not on file Sexual Orientation Not on file documented as of this encounter Plan of Treatment Scheduled Orders Name Type Priority Associated Diagnoses Orde r Schedule CBC with auto differential Lab Routine Routine health maintenance Expected: 12/17/2024 (Approximate), Expires: 06/26/2025 Comprehensive metabolic panel Lab Routine Routine health maintenance Expected: 12/17/2024 (Approximate), Expires: 06/26/2025 Lipid panel Lab Routine Routine health maintenance Expected: 12/17/2024 (Approximate), Expires: 06/26/2025 Hepatitis B Surface Antigen Blood Microbiology Routine Need for hepatitis B screening test Expected: 12/17/2024 (Approximate), Expires: 06/26/2025 Hepatitis B core antibody, total Blood Microbiology Routine Need for hepatitis B screening test Expected: 12/17/2024 (Approximate), Expires: 06/26/2025 Hepatitis B surface antibody (immune status) Blood Microbiology Routine Need for hepatitis B screening test Expected: 12/17/2024 (Approximate), Expires: 06/26/2025 Thyroid Function Bracken Lab Routine Routine health maintenance Expected: 12/17/2024 (Approximate), Expires: 06/26/2025 Hemoglobin A1c Lab Routine Routine health maintenance 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) Expected: 12/17/2024 (Approximate), Expires: 06/26/2025 Albumin Creatinine Ratio, Urine Lab Routine Routine health maintenance Expected: 12/17/2024 (Approximate), Expires: 06/26/2025 Iron profile w/ IBC Lab Routine Routine health maintenance Iron deficiency anemia secondary to inadequate dietary iron intake Expected: 12/17/2024 (Approximate), Expires: 06/26/2025 documented as of this encounter Visit Diagnoses Diagnosis Routine health maintenance- Primary Unspecified examination Need for hepatitis B screening test 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) Iron deficiency anemia secondary to inadequate dietary iron intake documented in this encounter Care Teams R D Manager Relationship Specialty Start Date End Date Mariangel Quiñonez MD [address] [address] PCP - General Family Medicine 05/16/22 Neil Ag MD PhD 6 [place] [address] Radiation Oncologist Radiation Oncology 12/17/18 [place] [address] [facility] [address] [place], [place] [id number] Referring Physician General Surgery 12/17/18 [place] [address] [facility] [address] [place], [place] [id number] Medical Oncologist/Road Machinery Inspector Medical Oncology 12/17/18 [place] [address] [facility] [address] [place], [place] [phone] Consulting Physician Gastroenterology 01/07/20 documented as of this encounter
--- OUTSIDE RECORDS SUMMARY | 2024-11-16 12:52 | XMS_ITS | Encounter Summary ---
Author Organization [facility] Healthcare Address [address] [place] [address] Care Team Providers Care Executive Community Planning Name Role Phone Neil Ag MD PhD Unavailable Ita Vazquez MD Unavailable Caron Mohan MD Unavailable Pebbles Felton MD Unavailable [phone] Mariangel Quiñonez MD Primary Care Provide r Encounter Details Date Type Department Care Team (Late st Contact Info) Description 06/25/[address] 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 * Telephone Encounter - Aditi Lopez MA - 06/25/2024 10:50 AM CDT ----- Message from Mariangel Quiñonez MD sent at 06/25/2024 9:12 AM CDT ----- Can let patient know that her iron levels are low. I recommend following up with a barrel raiser forthis. Her cholesterol levels are slightly elevated. I recommend working on diet and exercise for this. The A1c is 6.5 which is a good level. All other labs are unremarkable. documented in this encounter Plan of Treatment Not on file documented as of this encounter Visit Diagnoses Not on filedocumented in this encounter Care Teams Executive Community Planning Relationship Specialty Start Date End Date Mariangel Quiñonez MD [address] [place] [address] [place] [address] PCP - General Family Medicine 05/16/22 Neil Ag MD PhD 6 [place] [address] Radiation Oncologist Radiation Oncology 12/17/18 [place] [address] [facility] [address] [place] [id number] Referring Physician General Surgery 12/17/18 [place] [address] [facility] [address] [place] [phone] Medical Oncologist/Olive Grader Medical Oncology 12/17/18 [place] [address] [facility] [address] [place] [address] Consulting Physician Gastroenterology 01/07/20 documented as of this encounter
--- OUTSIDE RECORDS SUMMARY | 2024-11-16 12:52 | XMS_ITS | Encounter Summary ---
Author Organization [facility] Healthcare Address [address] [place] [address] Care Team Providers Care President And Cmo Name Role Phone Neil Ag MD PhD Unavailable Ita Vazquez MD Unavailable Caron Mohan MD Unavailable Pebbles Felton MD Unavailable [phone] Mariangel Quiñonez MD Primary Care Provide r Reason for Visit * Reason Onset Date Comments widespread itching 09/04/2024 Encounter Details Date Type Department Care Team (Late st Contact Info) Description 09/04/2024 Nurse Triage [facility] Medical Group Primary Care at [address] [place] [address] Pricilla Salter RN Social History Tobacco Use Types Packs/Day Years [...] on file 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 Pain: 0 /10. Symptoms: patient c/o: widespread itching all over body only at night. Patient expressed uncertainty regarding the cause of her rash, stating she ate peanuts before it started but has never been allergic to peanuts in the past, unsure if she is dehydrated. Patient drinks diet soda all day and minimal water. There is a lot of combining at the farms near her at thistime of the year. Denies: peanut allergy, food allergy Relevant Meds: APAP PM. Relevant HX of: yolande 06/26/24. DM 2, HTN, anemia, RA, CHF, breast and uterine cancer. Home Care Instructions/Education given: Patient verbalizes understanding of the instructions, is comfortable with the plan and will comply with the plan. Disposition per guideline:See today in office. No appt available in office today. Appt CC Christy 09/04/24 330 pm with provider. Pharmacy and allergies were verified. Stay cool, wear cotton clothingfor less itching. Reason for Disposition MODERATE-SEVERE widespread itching (i.e., interferes with sleep, normal activities or school) and not improved after 24 hours of itching Care Advice Protocols used: Itching - [id number] * Telephone Encounter - Alison Garcia RN - 09/04/2024 9:27 AM CDT Regarding: Rash ----- Message from [employer] DXa T sent at 09/04/2024 9:00 AM CDT ----- Symptom Based Call Chief Complaint(s): Rash Duration: 2 days What type of symptom(s) is the patient experiencing? Non-Emergent. Is this a new or reoccurring symptom(s)? New What have you tried to help your symptom(s)? N/a Why was appointment not scheduled? Appointment availability did not meet the patient's need. Additional Comments: Patient reports the rash is all over her body and only itches at night. Patient expressed uncertainty regarding the cause of her rash, stating she ate peanuts before it started but has never been allergic to peanuts in the past, and that she didn't know if she may be dehydrated. Does message need to be routed? Yes-Action Needed documented in this encounter Plan of Treatment Not on file documented as of this encounter Visit Diagnoses Not on filedocumented in this encounter Care Teams President And Cmo Relationship Specialty Start Date End Date Mariangel Quiñonez MD 2 [facility] [address] [address] PCP - General Family Medicine 05/16/22 Neil Ag MD PhD 6 [facility] [place] [address] Radiation Oncologist Radiation Oncology 12/17/18 [place] [address] [facility] [address] [place] [address] Referring Physician General Surgery 12/17/18 [place] [address] [facility] [address] [place] [address] Medical Oncologist/Paper Sheeter Medical Oncology 12/17/18 [place] [address] [facility] [address] [place] [address] Consulting Physician Gastroenterology 01/07/20 documented as of this encounter
--- OUTSIDE RECORDS SUMMARY | 2024-11-16 12:52 | XMS_ITS | Encounter Summary ---
Author Organization [facility] Healthcare Address [address] [place] [address] Care Team Providers Care Split And Drum Room Supervisor Name Role Phone Neil Ag MD PhD Unavailable [phone] Ita Vazquez MD Unavailable Caron Mohan MD Unavailable Pebbles Felton MD Unavailable [phone] Mariangel Quiñonez MD Primary Care Provide r Reason for Referral * Consultation (Routine) - Closed Specialty Diagnoses / Procedures Referred By Contac t Referred To Contact Physical Therapy Diagnoses Low back pain, unspecified back pain laterality, unspecified chronicity, unspecified whether sciatica present Mariangel Quiñonez MD [address] [place] [address] [address] Phone: tel: fax: External Order Referral ID Status Reason Start Date Expiration Date V isits Requested Visits Authorized [id number] Closed Evaluate and Treat 12/12/2023 01/10/2025 24 24 Question Answer PTRFR PT Evaluate and Treat Therapy options discussed with patient? Yes Location provided for therapy services is: Patient requested/Patient preferred Please select the performing region: External Order [[id number]] # of visits: 24 Comments [facility] (P) [phone] (F) [phone] URER Encounter Details Date Type Department Care Team (Late st Contact Info) Description 12/12/2023 Orders Only [facility] Medical Group Primary Care at [address] [place] [id number] Mariangel Quiñonez MD [address] [place] [address] [address] [place] [address] Low back pain, unspecified back pain laterality, unspecified chronicity, unspecified whether sciatica present (Primary Dx) Social History Tobacco Use Types [...] points, staff should administer the PHQ-9) 0 12/06/2023 Hunger Vital Sign Answer Date Recorded Worried [...] on file 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 Gender Identity Not on file Sexual Orientation Not on file documented as of this encounter Plan of Treatment Scheduled Referrals Name Type Priority Associated Diagnoses Orde r Schedule Ambulatory referral order to Physical Therapy - Outpatient Referral Routine Low back pain, unspecified back pain laterality, unspecified chronicity, unspecified whether sciatica present Expected: 12/12/2023 (Approximate), Expires: 12/12/2024 documented as of this encounter Visit Diagnoses Diagnosis Low back pain, unspecified back pain laterality, unspecified chronicity, unspecified whether sciatica present- Primary documented in this encounter Care Teams Split And Drum Room Supervisor Relationship Specialty Start Date End Date Mariangel Quiñonez MD [address] [address] PCP - General Family Medicine 05/16/22 Neil Ag MD PhD 6 [place] [address] Radiation Oncologist Radiation Oncology 12/17/18 [place] [address] [facility] [address] [place], [place] [address] Referring Physician General Surgery 12/17/18 [place] [address] [facility] [address] [place], [place] [phone] Medical Oncologist/Associate Agent Insurance Sales Medical Oncology 12/17/18 [place] [address] [facility] [address] [place] [address] Consulting Physician Gastroenterology 01/07/20 documented as of this encounter
--- OUTSIDE RECORDS SUMMARY | 2024-11-16 12:52 | XMS_ITS | Encounter Summary ---
Author Organization [facility] Healthcare Address [address] [place] [address] Care Team Providers Care Hand Tool Filer Name Role Phone Neil Ag MD PhD Unavailable Ita Vazquez MD Unavailable Caron Mohan MD Unavailable Pebbles Felton MD Unavailable [phone] Mariangel Quiñonez MD Primary Care Provide r Reason for Visit * Reason Comments Itching Patient states she d oesn't start itching till around 630 at night. She states she is up and not in bed. Got up last night walked a little bit and felt like it helped. States it could be the peanuts she brought in with her. 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 Gender Identity Not on file Sexual Orientation Not on file documented as of this encounter Last Filed Vital Signs Vital Sign Reading Time Taken Comments Blood Pressure 152/80 09/04/2024 3:25 PM CDT Pulse 76 09/04/2024 3:25 PM CDT Temperature 37.1 ??C (98.7 ??F) 09/04/2024 3:25 PM CD T Respiratory Rate 16 09/04/2024 3:25 PM CDT Oxygen Saturation 99% 09/04/2024 3:25 PM CDT Inhaled Oxygen Concentration - - Weight 83 kg (183 lb) 09/04/2024 3:25 PM CDT Height 170.2 cm (5' 7 ) 09/04/2024 3:25 PM CDT Body Mass Index 28.66 09/04/2024 3:25 PM CDT documented in this encounter Patient Instructions * Patient Instructions* Lisa Rojas NP - 09/04/2024 3:30 PM CDT Thank you for allowing me to take care of you today. Diagnosis rash. Prescribed prednisone. Please do not take her methotrexate while taking prednisone unless you talk to your primary provider 1st. Home care includes rest, hydration, over the counter medications. Follow up with your primary provider in 2-3 days as needed. Red flags include worsening symptoms including pain, swelling, headache, dizziness, congestion, fever, shortness of breath, chest pain, nausea/vomiting, abdomen pain, back pain, muscle pain, decreased range of motion, numbness/tingling, weakness, fatigue. Follow up with your primary provider, this clinic, or if severe go to ER. * Attachments The following attachments cannot be sent through Care Everywhere. * Acute Rash (AfterCare(R) Instructions(ER/ED)) (Luxembourgish) documented in this encounter Ordered Prescriptions Prescription Sig Dispense Quantity Refills Last Filled Start Date End Date predniSONE (DELTASONE) 20 mg tabletIndications: Rash Take 2 tablets (40 mg) by mouth daily for 5 days 10 tablet 09/04/2024 4 documented in this encounter Progress Notes * Lisa Rojas NP - 09/04/2024 3:30 PM CDT Images from the original note were not included. Subjective/Objective Patient ID: Jolene Cedillo is a 78 y.o. female. Chief Complaint Itching (Patient states she doesn't start itching till around 630 at night. She states she is up and not in bed. Got up last night walked a little bit and felt like it helped. States it could be the peanuts she brought in with her. ) Patient is a 78-year-old female [facility] Care chief complaint rash and itching that starts around 630 every night. Patient reports the only new thing that she has tried is peanuts from [place] [address] has. Reports she ate those prior to the symptoms starting. Patient denies any difficulty breathing. Reports she does take Tylenol PM at night which seems to help a little. States she did get up and around walking last night which also seemed to help a little bit. Review of system: All systems reviewed and are negative or noncontributory for this patient's presentation today other than as stated in HPI. Physical Exam Vitals and nursing note reviewed. Constitutional: General: She is not in acute distress. Appearance: Normal appearance. She is normal weight. She is not ill-appearing, toxic-appearing or diaphoretic. HENT: Head: Normocephalic and atraumatic. Right Ear: Tympanic membrane, ear canal and external ear normal. There is no impacted cerumen. Left Ear: Tympanic membrane, ear canal and external ear normal. There is no impacted cerumen. Nose: Nose normal. No congestion or rhinorrhea. Mouth/Throat: Mouth: Mucous membranes are moist. Pharynx: Oropharynx is clear. No oropharyngeal exudate or posterior oropharyngeal erythema. Eyes: Conjunctiva/sclera: Conjunctivae normal. Pupils: Pupils are equal, round, and reactive to light. Pulmonary: Effort: Pulmonary effort is normal. No respiratory distress. Breath sounds: Normal breath sounds. No stridor. No wheezing, rhonchi or rales. Chest: Chest wall: No tenderness. Abdominal: General: There is no distension. Musculoskeletal: General: Normal range of motion. Cervical back: Normal range of motion and neck supple. Skin: General: Skin is warm and dry. Findings: Rash present. Comments: Patient has a very faint not on raised macular patchy rash to the upper thighs. Neurological: General: No focal deficit present. Mental Status: She is alert and oriented to person, place, and time. Mental status is at baseline. Psychiatric: Mood and Affect: Mood normal. Behavior: Behavior normal. Thought Content: Thought content normal. Judgment: Judgment normal. Vitals: 09/04/24 1525 BP: 152/80 Pulse: 76 Resp: 16 Temp: 37.1 ??C (98.7 ??F) TempSrc: Oral SpO2: 99% Weight: 83 kg (183 lb) Height: 170.2 cm (5' 7 ) Assessment/Plan Diagnosis rash. Patient instructions/education: Rash Prescribed prednisone. Please do not take her methotrexate while taking prednisone unless you talk to your primary provider 1st. Home care includes rest, hydration, over the counter medications. Follow up with your primary provider in 2-3 days as needed. Red flags include worsening symptoms including pain, swelling, headache, dizziness, congestion, fever, shortness of breath, chest pain, nausea/vomiting, abdomen pain, back pain, muscle pain, decreased range of motion, numbness/tingling, weakness, fatigue. Follow up with your primary provider, this clinic, or if severe go to ER. Procedures Disposition- Patient presents with rash. Patient is nontoxic-appearing and in no acute distress. Vitals signs are stable. Discussed point of care test results with patient, lab test, X-rays that may have been completed or ordered during clinic visit. Given the history and physical exam findings, presentation/diagnosis is rash. The Differential diagnosis includes contact dermatitis, allergic reaction, urticaria. However, these differential diagnosis are less likely given the data, history and physical exam. Supportive care was discussed including rest, hydration, [id number]-[id number] meds to help symptoms. Prednisone was prescribed. Discussed medications dosages, usage & potential side effects. I did advise patient to contact her cafe server to see if she needs to hold the methotrexate while taking the prednisone. Advised close follow up and return criteria/red flags were discussed. Risks and interactions reviewed with patient. Patient has been instructed to follow up w PCP or go to ER for any signs or symptoms that are of concern or worsening. Understanding of discharge instructions verbalized, and agrees with plan of care. The patient was given the opportunity to ask all questions and to have all questions answered. This note is dictated and transcribed by [employer]. Vocational Adviser variances may occur. Despite proofreading, typographical errors may occur. Lisa Rojas NP documented in this encounter Plan of Treatment Not on file documented as of this encounter Visit Diagnoses Diagnosis Rash- Primary Rash and other nonspecific skin eruption documented in this encounter Care Teams Hand Tool Filer Relationship Specialty Start Date End Date Mariangel Quiñonez MD [address] [address] PCP - General Family Medicine 05/16/22 Neil Ag MD PhD [address] [place] [id number] Radiation Oncologist Radiation Oncology 12/17/18 [place] [address] [facility] [address] [place] [address] Referring Physician General Surgery 12/17/18 [place] [address] [facility] [address] [place], [place] [id number] Medical Oncologist/Cribbing Setter Medical Oncology 12/17/18 [place] [address] [facility] [address] [place] [address] Consulting Physician Gastroenterology 01/07/20 documented as of this encounter
--- OUTSIDE RECORDS SUMMARY | 2024-11-16 12:52 | XMS_ITS | Encounter Summary ---
Author Organization [facility] Healthcare Address [address] [place] [address] Care Team Providers Care Transportation Project Manager Name Role Phone Neil Ag MD PhD Unavailable [phone] Ita Vazquez MD Unavailable Caron Mohan MD Unavailable Pebbles Felton MD Unavailable [phone] Mariangel Quiñonez MD Primary Care Provide r Reason for Visit * Reason Onset Date Comments Successful Phone Call 06/26/2024 MED ADHERE NCE-PAST DUE Encounter Details Date Type Department Care Team (Late st Contact Info) Description 06/26/2024 Telephone [facility] Primary Care at [address] [place] [address] Fadia Castaneda [address] [place] [address] [address] [place] [address] Successful Phone Call (MED ADHERENCE-PAST DUE ) Social History Tobacco Use Types Packs/Day Years [...] on file 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 She can let us know when she needs a refill * Telephone Encounter - Rayna Guzman MA - 06/26/2024 2:49 PM CDT Patient stated she did not need refill on this Rx today in office. * Telephone Encounter - Rayna Guzman MA - 06/26/2024 2:[address] Quiñonez, please review message. * Telephone Encounter - Fadia Castaneda - 06/26/2024 2:09 PM CDT [facility] Medication Refill Note Jolene Cedillo was identified on [employer] refill report for a past due/due soon refill of Losartan. According to this report, Losartan was last refilled on 12/06/23 for a 30 day supply. Goal is to have enough medicine so that 80% or more of the days are covered each year. Outreach: Successfully reached patient by phone. Patient reports missing doses often due to forgetfulness. Please send a refill to the [facility] in [place], [place] Education provided during this encounter: Request a refill at least 1 week before running out of medicine to allow the pharmacy time to obtain the medicine or notify you of any delays Recommendation(s): Renew prescription for Losartan. Send a 90-day supply with 3 refills to support efforts to improve med adherence. Patient's last office visit 06/26/24, patient's next scheduled appointment 12/31/24 ---PLEASE ADVISE PATIENT: --- IF SHE SHOULD BE TAKING 25MG ONCE PER DAY OR 4 TIMES PER DAY. I READ HER THE DOSE FROM TODAY'S VISIT SUMMARY, BUT SHE STILL WANTS TO VERIFY. THANK YOU. documented in this encounter Plan of Treatment Not on file documented as of this encounter Visit Diagnoses Not on filedocumented in this encounter Care Teams Transportation Project Manager Relationship Specialty Start Date End Date Mariangel Quiñonez MD [address] [address] PCP - General Family Medicine 05/16/22 Neil Ag MD PhD [address] [place] [address] Radiation Oncologist Radiation Oncology 12/17/18 [place] [address] [address] Referring Physician General Surgery 12/17/18 [place] [address] [address] Medical Oncologist/Dairy Frozen Manager Medical Oncology 12/17/18 [place] [address] [address] Consulting Physician Gastroenterology 01/07/20 documented as of this encounter
--- OUTSIDE RECORDS SUMMARY | 2024-11-16 12:52 | XMS_ITS | Referral Summary ---
Author Organization [facility] Address [address] [place] [address] Care Team Providers Care Manufacturing Engineer Name Role Phone Neil Ag MD PhD Unavailable Ita Vazquez MD Unavailable Caron Mohan MD Unavailable Pebbles Felton MD Unavailable [phone] Mariangel Quiñonez MD Primary Care Provide r Encounters Date Type Department Care Team Description 09/04/2024 3:30 PM CDT Office Visit [facility] [place] [address] [place] [address] Lisa Rojas NP Rash (Primary Dx) 09/04/2024 Nurse Triage [facility] [address] [place] [address] Pricilla Salter RN from Last 3 Months Allergies Active Allergy Reactions Criticality Noted Date Comments Atorvastatin Muscle pain Medium 03/04/2018 Codeine Nausea only Low Reaction: Nausea, Medications letrozole (FEMARA) 2.5 mg tablet Take 1 tablet (2.5 mg total) by mouth daily Active methotrexate 2.5 mg tabletIndicatio ns:Rheumatoid Arthritis Take 1 tablet (2.5 mg total) by mouth every 7 days Takes 6 tablets every Sunday Active losartan (COZAAR) 25 mg tablet Take 1 tablet (25 mg total) by mouth daily 90 tablet 1 4 Active iron [id number] -suc-stoma (MULTIGEN) 70 mg-150 mg-10 mcg-2 mg-75 mg tablet 1 tablet daily Activ e Active Problems Problem Noted Date Diagnosed Date BMI 28.0-28.9,adult 06/26/2024 Left hip pain 12/06/2023 Assessment & Plan (12/06/2023 12:23 PM STOCK TRANSFER CLERK): New concern Not at goal Muscle spasm Referral to physical therapy Flexeril 5mg at night Do not operate heavy machinery If no improvement will get xrays and referral to pain management F/u prn Encounter for wellness examination 10/02/2022 Assessment & Plan (12/06/2023 12:02 PM STOCK TRANSFER CLERK): Ordered CBC, cmp, lipid, hgb a1c, TSH, Flu declines Zoster declines pcv20 declines Colonoscopy:up to date Pap smear:followed with ob Mammo:follows with Dr. Kimberlee Jordanu in 1 year for annual Assessment & Plan (10/03/2022 10:39 AM STOCK TRANSFER CLERK): Ordered CBC, cmp, lipid, hgb a1c, TSH, Flu given today Colonoscopy:up to date Pap smear:follows with ob Mammo:follows with Dr. Kimberlee Silva in 1 year for annual Iron deficiency anemia 01/07/2021 Overview (01/07/2021): Added automatically from request for surgery [id number] Assessment & Plan (06/26/2024 1:16 PM CDT): Stable / clinically quiescent. Will continue to monitor. Iron panel ordered for 6 months Assessment & Plan (12/06/2023 12:20 PM STOCK TRANSFER CLERK): Stable / clinically quiescent. Will continue to monitor. Iron panel ordered Acute upper GI bleed 01/03/2021 Overview (01/03/2021): Added automatically from request for surgery [id number] Type 2 diabetes mellitus with hyperlipidemia 03/2021 Assessment & Plan (06/26/2024 6:59 AM CDT): The patient was counseled on a heart-healthy, [...] ur ratio ordered F/u in 6 months Assessment & Plan (12/06/2023 11:44 AM STOCK TRANSFER CLERK): The patient was counseled on a heart-healthy, diabetic-friendly diet, as well as life-style modification. Education provided on the diagnosis and risks of the disease. We will continue to monitor routine labs. Additionally, She was counseled on routine diabetic eye exams, foot exams, and other preventive care. Most recent A1c on file: Lab Results Component Value Date HGBA1C 6.2 (H) 03/27/2023 Diet control Unable to tolerate statin Restart losartan at 25mg daily A1c ordered today Micro/Cr ur ratio ordered F/u in 6 months Assessment & Plan (04/03/2023 10:59 AM CDT): The patient was counseled on a heart-healthy, diabetic-friendly diet, as well as life-style modification. Education provided on the diagnosis and risks of the disease. We will continue to monitor routine labs. Additionally, She was counseled on routine diabetic eye exams, foot exams, and other preventive care. Most recent A1c on file: Lab Results Component Value Date HGBA1C 6.2 (H) 03/27/2023 Diet control A1c ordered today Micro/Cr ur ratio ordered F/u in 6 months Assessment & Plan (10/02/2022 9:57 PM STOCK TRANSFER CLERK): The patient was counseled on a heart-healthy, diabetic-friendly diet, as well as life-style modification. Education provided on the diagnosis and risks of the disease. We will continue to monitor routine labs. Additionally, She was counseled on routine diabetic eye exams, foot exams, and other preventive care. Most recent A1c on file:6.6 Continue current regimen A1c ordered today Micro/Cr ur ratio ordered F/u in 6 months Hiatal hernia 11/01/2020 Recurrent pulmonary emboli (CMS/HCC) 07/02/2020 Assessment & Plan (12/06/2023 7:16 AM STOCK TRANSFER CLERK): eliquis was stopped because of hx of GI bleeding Assessment & Plan (10/03/2022 10:17 AM STOCK TRANSFER CLERK): eliquis was stopped because of hx of GI bleeding Chronic GERD 07/02/2020 History of breast cancer 07/02/2020 Assessment & Plan (12/06/2023 7:16 AM STOCK TRANSFER CLERK): Still follows with Dr. Mohan Continue with letrozole Assessment & Plan (10/03/2022 10:19 AM STOCK TRANSFER CLERK): Still follows with Dr. Mohan Continue with letrozole History of uterine cancer 07/02/2020 Assessment & Plan (12/06/2023 7:16 AM STOCK TRANSFER CLERK): She follows with ob Assessment & Plan (10/03/2022 10:19 AM STOCK TRANSFER CLERK): She follows with ob High risk of cardiac event 07/01/2020 Iron deficiency anemia due to chronic blood loss 01/06/2020 Assessment & Plan (01/06/2020 5:46 AM STOCK TRANSFER CLERK): Likely GI source as patient has positive guaiac. Hemoglobin was as high as 11.1 in November. Patient has been seen by GI and 1 unit of PRBCs ordered. Awaiting repeat hemoglobin. Ferrlecit ordered by Dr. Felton already. Continue to monitor. Will hold anticoagulation for now. Chronic diastolic heart failure 12/03/2019 Assessment & Plan (12/06/2023 7:15 AM STOCK TRANSFER CLERK): stable Assessment & Plan (10/02/2022 9:56 PM STOCK TRANSFER CLERK): stable Malignant neoplasm of upper- inner quadrant of left breast in female, estrogen receptor positive 12/17/2018 Cancer Staging:Pathologic stage from 12/17/2018:Stage IA(pT1b, pN1mi(sn), cM0, G2, ER: Positive, ME: Positive, HER2: Negative) - Signed by Neil Ag MD PhD on 12/17/2018 Assessment & Plan (01/06/2020 5:46 AM STOCK TRANSFER CLERK): Hold letrozole for now as it increases risk for thromboembolism. Assessment & Plan (12/02/2019 7:15 PM STOCK TRANSFER CLERK): S/p lumpectomy, home letrozole to be replaced with formulary anastrozole while inpatient per pharmacy. Followed by work counselor onc as an outpatient. Mixed hyperlipidemia 11/28/2017 Assessment & Plan (12/06/2023 12:19 PM STOCK TRANSFER CLERK): Stable / clinically quiescent. Will continue to monitor. Unable to tolerate statin medication at any dose Causes muscle aches Lipid panel ordered Assessment & Plan (04/03/2023 10:57 AM CDT): Stable / clinically quiescent. Will continue to monitor. Continue statin Assessment & Plan (10/02/2022 9:55 PM STOCK TRANSFER CLERK): Stable / clinically quiescent. Will continue to monitor. Continue statin Essential hypertension 11/28/2017 Assessment & Plan (06/26/2024 6:59 AM CDT): Bp in the office today BP Readings from Last 1 Encounters: 12/06/23 132/80 Continue current regimen of carvedilol and losartan 100mg daily Recommend DASH diet, heart-healthy lifestyle, exercise. Discussed the risks of hypertension. F/u in 6 months Assessment & Plan (12/06/2023 11:32 AM STOCK TRANSFER CLERK): Bp in the office today BP Readings from Last 1 Encounters: 04/03/23 130/62 Continue current regimen of carvedilol and losartan 100mg daily Recommend DASH diet, heart-healthy lifestyle, exercise. Discussed the risks of hypertension. F/u in 6 months Assessment & Plan (04/03/2023 10:59 AM CDT): Bp in the office today BP Readings from Last 1 Encounters: 02/11/23 136/62 Continue current regimen of carvedilol and losartan 100mg daily Recommend DASH diet, heart-healthy lifestyle, exercise. Discussed the risks of hypertension. F/u in 3 months Assessment & Plan (10/03/2022 10:15 AM STOCK TRANSFER CLERK): Bp in the office today BP Readings from Last 1 Encounters: 10/03/22 136/78 Continue current regimen of carvedilol and losartan Recommend DASH diet, heart-healthy lifestyle, exercise. Discussed the risks of hypertension. F/u in1 year Assessment & Plan (01/06/2020 5:42 AM STOCK TRANSFER CLERK): Currently normotensive. Continue carvedilol with hold parameters. Holding losartan and hydrochlorothiazide for now. Assessment & Plan (12/02/2019 7:14 PM STOCK TRANSFER CLERK): Continue home antihypertensives. Rheumatoid arthritis involvi ng multiple sites with positive rheumatoid factor ([facility]) 11/28/2017 Assessment & Plan (12/06/2023 7:16 AM STOCK TRANSFER CLERK): Stable Continue with rheumatology Continue with methotrexate Assessment & Plan (10/03/2022 10:21 AM STOCK TRANSFER CLERK): Stable Continue with rheumatology Continue with methotrexate Assessment & Plan (01/06/2020 5:42 AM STOCK TRANSFER CLERK): Patient is on methotrexate which she takes on Sunday. Assessment & Plan (12/02/2019 7:16 PM STOCK TRANSFER CLERK): Continue home methotrexate, administered weekly on Wednesdays. Hiatal hernia Resolved Problems Problem Noted Date Diagnosed Date Resolved Date Gastrointestinal hemorrhage associated with anorectal source 01/05/2020 07/02/2020 Overview (01/06/2020): Added automatically from request for surgery [id number] Bilateral pulmonary embolism ([facility]) 12/02/2019 07/02/2020 Assessment & Plan (12/02/2019 7:13 PM STOCK TRANSFER CLERK): Cause shortness of breath cough, seen on chest CT today. Therapeutic Lovenox started in ED, switched to Eliquis for outpatient therapy. TTE ordered for AM to ensure no right heart strain. Cause unclear at this point, chest CT showed a nodular density in the left breast and recommended follow-up mammogram, however patient had a normal mammogram 3 weeks ago from her work counselor onc physician at [facility] (results in Care Everywhere). Encounter for screening colonoscopy 09/29/2019 07/02/2020 Overview (09/29/2019): Added automatically from request for surgery [id number] Malignant neoplasm of uterus ([facility]) 12/17/2018 07/02/2020 Assessment & Plan (12/02/2019 7:15 PM STOCK TRANSFER CLERK): S/p hysterectomy. Viral URI with cough 10/30/2018 019 Assessment & Plan (10/30/2018 11:28 AM STOCK TRANSFER CLERK): Likely viral based on symptoms. Flonase prescribed, conservative management advised including use of a nasal rinses, humidifier or paper eyes are along with indication to f/u in office with any worsening symptoms or persistent symptoms. Pre-diabetes 11/28/2017 11/30/2020 Benign hypertension 04/11/2014 12/17/19 19 Overview (03/01/2017): BENIGN HYPERTENSION Immunizations Name Administration Dates Next Due Influenza, Quadrivalent, Hig h Dose, Preservative Free, Intrr 10/03/2022,11/01/2020 Influenza, Trivalent, High D ose, Split, Preservative Free, Intramuscular 09/25/2019,09/13/2018,12/24/2017 Influenza, Unspecified 12/06/2023(Deferr ed: Patient Refused),03/28/2022(Deferred: Patient Refused),09/28/2021(Deferred: Patient Refused),06/26/2021(Deferred: Patient Refused) Pfizer SARS-CoV-2 Monovalent Vaccination (12+ Yrs) PURPLE 02/23/2021,01/26/2021 Pneumococcal Conjugate PCV 13 12/17/2018 Pneumococcal Conjugate, Unspecified 12/06/2023(D eferred: Patient Refused) Tdap 09/13/2018 Social History Tobacco Use Types Packs/Day Years [...] on file 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 STOCK TRANSFER CLERK Gender Identity Not on file Sexual Orientation [...] Mass Index 28.66 09/04/2024 3:25 PM CDT Plan of Treatment Not on file Procedures Procedure Name Priority Date/Time Associated Diagnosis Comments COMPREHENSIVE METABOLIC PANEL Routine 06/20/2024 9:02 AM CDT 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) Essential hypertension Mixed hyperlipidemia Iron deficiency anemia due to chronic blood loss HEMOGLOBIN A1C Routine 06/20/2024 9:02 AM CDT 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) Essential hypertension Mixed hyperlipidemia Iron deficiency anemia due to chronic blood loss LIPID PANEL WITH REFLEX TO DIRECT LDL Routine 06/20/2024 9:02 AM CDT 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) Essential hypertension Mixed hyperlipidemia Iron deficiency anemia due to chronic blood loss ALBUMIN CREATININE RATIO, URINE Routine 06/20/2024 9:02 AM CDT 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) Essential hypertension Mixed hyperlipidemia Iron deficiency anemia due to chronic blood loss DEXA AXIAL SKELETON BONE DENSITY 1 OR MORE SITES Schedule Routine, Read Routine (OP Routine) 02/19/2024 9:29 AM CDT Menopause HM DIABETES EYE EXAM Routine 08/28/2023 12:56 PM CDT COLONOSCOPY 01/07/2020 9:12 AM STOCK TRANSFER CLERK DIAGNOSTIC MAMMOGRAM BILATERAL W MOODY Schedule Routine, Read Routine (OP Routine) 11/12/2019 HEPATITIS C AB REFLEX RNA QUANT PCR Routine 05/11/2017 5:12 PM CDT from Last 3 Months or Most Recently Relevant to Health Maintenance Results * (ABNORMAL) Lipid panel with reflex to direct LDL (06/20/2024 9:02 AM CDT) Cholesterol 248(H) <200 mg/dL [facility] HDL 63 > OR = 50 mg/dL [facility] Triglycerides 124 <150 mg/dL [facility] LDL 160(H) mg/dL (calc) [facility] Comment: Reference range: <100 Desirable range <100 mg/dL for primary prevention; ?? <70 mg/dL for patients with CHD or diabetic patients with > or = 2 CHD risk factors. LDL-C is now calculated using the Norma calculation, which is a validated novel method providing better accuracy than the Friedewald equation in the estimation of LDL-C. Harry YUAN et al. RANDALL. 2013;310(19): 6096-3521 (http://education.[employer]/faq/LAS348) Chol/HDL ratio 3.9 <5.0 (calc) [facility] Non-HDL, (LDL+VLDL) 185(H) <130 mg/dL (calc) [facility] Comment: For patients with diabetes plus 1 major ASCVD risk factor, treating to a non-HDL-C goal of <100 mg/dL (LDL-C of <70 mg/dL) is considered a therapeutic option. Blood 06/20/2024 9:02 AM CDT 06/20/2024 9:06 AM CDT Narrative [facility] - 06/21/2024 2:32 PM CDT FASTING:YES FASTING: YES Mariangel Quiñonez MD LAB BLOOD ORDERABLES Final Result Performing Organization Address City/State/[facility] Co de Phone Number [facility] [address] [place] [address] * Albumin Creatinine Ratio, Urine (06/20/2024 9:02 AM CDT) Pathologist [facility] Creatinine, ur 105 20 - 275 mg/dL [facility] Microalbumin, ur 0.8 See Note: mg/dL [facility] Comment: Reference Range: Reference Range Not established Microalbumin/creat ratio 8 <30 mg/g creat [facility] Comment: The ADA defines abnormalities in albumin excretion as follows: Albuminuria Category ?Result (mg/g creatinine) Normal to Mildly increased ?? <30 Moderately increased ? 30-299 Severely increased ? > OR = 300 The ADA recommends that at least two of three specimens collected within a 3-6 month period be abnormal before considering a patient to be within a diagnostic category. Urine 06/20/2024 9:02 AM CDT 06/20/2024 9:06 AM CDT Narrative [facility] - 06/21/2024 2:32 PM CDT FASTING:YES FASTING: YES us Mariangel Quiñonez MD LAB URINE ORDERABLES Final Result Walk-in Appointment Scheduler[facility] [address] [place] [address] * (ABNORMAL) Hemoglobin A1c (06/20/2024 9:02 AM CDT) Hgb A1C 6.5(H) <5.7 % of total Hgb [facility] Comment: For someone without known diabetes, a hemoglobin A1c value of 6.5% or greater indicates that they may have diabetes and this should be confirmed with a follow-up test. For someone with known diabetes, a value <7% indicates that their diabetes is well controlled and a value greater than or equal to 7% indicates suboptimal control. A1c targets should be individualized based on duration of diabetes, age, comorbid conditions, and other considerations. Currently, no consensus exists regarding use of hemoglobin A1c for diagnosis of diabetes for children. ? This test was performed on the Jocelynn varun c503 platform. Effective 02/11/24, a change in test platforms from the [employer] to the Jocelynn varun c503 may have shifted HbA1c results compared to historical results. Based on laboratory validation testing conducted at [facility], the Jocelynn platform relative to the [employer] platform had an average increase in HbA1c value of < or = 0.3%. This difference is within accepted variability established by the National Glycohemoglobin Standardization Program. Note that not all individuals will have had a shift in their results and direct comparisons between historical and current results for testing conducted on different platforms is not recommended. Blood 06/20/2024 9:02 AM CDT 06/20/2024 9:06 AM CDT Narrative [facility] - 06/21/2024 2:32 PM CDT FASTING:YES FASTING: YES Mariangel Quiñonez MD LAB BLOOD ORDERABLES Final Result [facility] [address] [place] [address] * (ABNORMAL) Comprehensive metabolic panel (06/20/2024 9:02 AM CDT) Glucose 147(H) 65 - 99 mg/dL [facility] Comment: ? Fasting reference interval For someone without known diabetes, a glucose value >125 mg/dL indicates that they may have diabetes and this should be confirmed with a follow-up test. BUN 20 7 - 25 mg/dL [facility] Creatinine 0.93 0.60 - 1.00 mg/dL [facility] eGFR 63 > OR = 60 mL/min/1.7 3m2 [facility] BUN/creat ratio SEE NOTE: 6 - 22 (calc) [facility] Comment: ?? Not Reported: BUN and Creatinine are within ?? reference range. ? Sodium 139 135 - 146 mmol/L [facility] Potassium, pl 5.0 3.5 - 5.3 mmol/L [facility] Chloride 101 98 - 110 mmol/L [facility] CO2 25 20 - 32 mmol/L [facility] Calcium 9.2 8.6 - 10.4 mg/dL [facility] Protein, sr 6.8 6.1 - 8.1 g/dL [facility] Albumin 4.2 3.6 - 5.1 g/dL [facility] GLOBULIN 2.6 1.9 - 3.7 g/dL (calc) [facility] Alb/glob ratio 1.6 1.0 - 2.5 (calc) [facility] Bilirubin, total 0.5 0.2 - 1.2 mg/dL [facility] Alk phos 73 37 - 153 U/L [facility] AST 17 10 - 35 U/L [facility] ALT (SGPT) 9 6 - 29 U/L [facility] Blood 06/20/2024 9:02 AM CDT 06/20/2024 9:06 AM CDT Narrative [facility] - 06/21/2024 2:32 PM CDT FASTING:YES FASTING: YES us Mariangel Quiñonez MD LAB BLOOD ORDERABLES Final Result [facility] [address] [id number] * Dexa Axial Skeleton Bone Density 1 or 2 Site (02/19/2024 9:29 AM CDT) Anatomical Region Laterality Modality Body N/A Other 02/19/2024 4:29 PM CDT Narrative 02/19/2024 4:29 PM CDT EXAM DESCRIPTION: DEXA AXIAL SKELETON BONE DENSITY 1 OR MORE SITES REASON FOR STUDY: 78 y/o ?? year old ??F ??with given history of: ??MENOPAUSE ?? Osteoporosis screening ??Post menopausal ? Qualitative Field Coordinator/Model: [employer] SL (S/N [id number]) CLINICAL INFORMATION: Current height: ??67 ??inches ? Maximum height: ??67 ??inches ? Weight: ??180 ??pounds Risk factors: ??Postmenopausal, rheumatoid arthritis, cancer COMPARISON: 06/28/2021 Dissimilar scan types or analysis methods precludes assessment for calculating a significant change. FINDINGS: AP LUMBAR SPINE L1-L4: Total BMD is 1.085 g/cm2 T-score is 0.3 LEFT HIP: Total BMD is 0.888 g/cm2 T-score is -0.4 Femoral neck BMD is 0.686 g/cm2 T-score is -1.5 ?? FRAX: 10 year risk for a major osteoporotic fracture is 15 %, 10 year risk for a hip fracture is 3.5 % IMPRESSION: Low Bone Mass. REFERENCE: Bone mineral density: T-Score: ?Normal (T-score above or = -1.0) ?Low bone mass ??(T-score between -1.0 and -2.5) replaces the previously used term osteopenia ?Osteoporosis (T-score = or below -2.5) Z-Score: ? Within the expected range for age (Z-score above -2.0) ? Below the expected range for age (Z-score is -2.0 or below) Please see below follow up recommendations. Medical evaluation for secondary causes of low bone mineral density may be appropriate. FRAX is a World Health Organization validated fracture risk assessment tool that calculates a person's 10 year probability of a major osteoporosis related fracture and hip fracture. ??According to the National Osteoporosis Foundation guidelines, postmenopausal women and men age 50 or older with low bone mass and a 10 year probability of a major osteoporosis related fracture = or greater than 20% or a 10 year probability of a hip fracture = or greater than 3% should be considered for pharmacological treatment for the prevention of osteoporosis. For further information, including treatment recommendations, please refer to the 2019 ISCD Official Positions (http://www.iscd.org) and the NOF's Clinician's Guide to Prevention and Treatment of Osteoporosis (http://www.nof.org/professionals/clinical-guidelines) THIS IS AN ELECTRONICALLY VERIFIED FINAL REPORT 02/19/2024 4:29 PM - Electronically signed by ??Caesar Navarro M.D. MF: [id number] D: ??02/19/2024 4:29 PM T: ??02/19/2024 4:29 PM Report ID: [id number] Reading Location: ??[id number] Procedure Note Caesar Navarro MD - 02/19/2024 EXAM DESCRIPTION: DEXA AXIAL SKELETON BONE DENSITY 1 OR MORE SITES REASON FOR STUDY: 78 y/o year old F with given history of: MENOPAUSE Osteoporosis screening Post menopausal Qualitative Field Coordinator/Model: [employer] SL (S/N [id number]) CLINICAL INFORMATION: Current height: 67 inches Maximum height: 67 inches Weight: 180 pounds Risk factors: Postmenopausal, rheumatoid arthritis, cancer COMPARISON: 06/28/2021 Dissimilar scan types or analysis methods precludes assessment for calculating a significant change. FINDINGS: AP LUMBAR SPINE L1-L4: Total BMD is 1.085 g/cm2 T-score is 0.3 LEFT HIP: Total BMD is 0.888 g/cm2 T-score is -0.4 Femoral neck BMD is 0.686 g/cm2 T-score is -1.5 FRAX: 10 year risk for a major osteoporotic fracture is 15 %, 10 year risk for ahip fracture is 3.5 % IMPRESSION: Low Bone Mass. REFERENCE: Bone mineral density: T-Score: Normal (T-score above or = -1.0) Low bone mass (T-score between -1.0 and -2.5) replaces thepreviously used term osteopenia Osteoporosis (T-score = or below -2.5) Z-Score: Within the expected range for age (Z-score above -2.0) Below the expected range for age (Z-score is -2.0 or below) Please see below follow up recommendations. Medical evaluation forsecondary causes of low bone mineral density may be appropriate. FRAX is a World Health Organization validated fracture risk assessmenttool that calculates a person's 10 year probability of a major osteoporosisrelated fracture and hip fracture. According to the National OsteoporosisFoundation guidelines, postmenopausal women and men age 50 or older with low bonemass and a 10 year probability of a major osteoporosis related fracture = or greater than 20% or a 10 year probability of a hip fracture = or greaterthan 3% should be considered for pharmacological treatment for the preventionof osteoporosis. For further information, including treatment recommendations, please referto the 2019 ISCD Official Positions (http://www.iscd.org) and the NOF's Clinician's Guide to Prevention and Treatment of Osteoporosis (http://www.nof.org/professionals/clinical-guidelines) THIS IS AN ELECTRONICALLY VERIFIED FINAL REPORT 02/19/2024 4:29 PM - Electronically signed by Caesar Navarro M.D. MF: MAXINE Report ID: [id number] Reading Location: [id number] us Caron Mohan MD IMG DXA PROCEDURES Fi nal Result * DIABETES EYE EXAM (08/28/2023 12:56 PM CDT) SCRIBED DIABETIC DILATED EYE EXAM Normal us Historical Provider HEALTH MAINTENANCE Final Result * COLONOSCOPY (01/07/2020 9:12 AM STOCK TRANSFER CLERK) Anatomical Region Laterality Modality Other Narrative Procedure Note Pebbles Felton MD - 01/07/2020 9:12 AM CST [facility] Patient Name: Jolene Gordon Procedure Date: 01/07/2020 9:12 AM Date of : 1945 Admit Type: Inpatient Age: 74 Gender: Female Attending MD: Pebbles Felton M.D. Room: [facility] END[facility]COPY ROOM 1 Note Status: Finalized Patient Profile: This is a 74 year old female. Patient admitted withthe severe anemia and noted occult blood in the stool. Procedure: Colonoscopy Indications: Heme positive stool, Iron deficiency anemia Referring MD: Francisco Long M.D. Providers: Pebbles Felton M.D. Impression: - One 3 mm polyp in the cecum, removed with a jumbo cold forceps. Resected and retrieved. - Two 6 to 8 mm polyps in the mid descending colon, removed with a cold snare. Resected and retrieved. - One 14 mm polyp in the distal descending colon, removed with a cold snare. Resected and retrieved. Clips (MR conditional) were placed. - Diverticulosis in the sigmoid colon. - Internal hemorrhoids. Recommendation: - Await pathology results. - Repeat colonoscopy in 3 years for screeningpurposes. - Continue present medications. - Resume Eliquis tomorrow. Medicines: Monitored Anesthesia Care Complications: No immediate complications. Estimated Blood Loss: Estimated blood loss: none. Procedure: Pre-Anesthesia Assessment: - Prior to the procedure, a History and Physical was performed, and patient medications and allergieswere reviewed. The patient's tolerance of previous anesthesia was also reviewed. The risks and benefitsof the procedure and the sedation options and riskswere discussed with the patient. All questions were answered, and informed consent was obtained. Prior Anticoagulants: The patient has taken Eliquis (apixaban), last dose was 3 days prior to procedure. ASA Grade Assessment: III - A patient with severe systemic disease. After reviewing the risks and benefits, the patient was deemed in satisfactory condition to undergo the procedure. - Prior to the procedure, a History and Physical was performed, and patient medications and allergieswere reviewed. The patient's tolerance of previous anesthesia was also reviewed. The risks and benefitsof the procedure and the sedation options and riskswere discussed with the patient. All questions were answered, and informed consent was obtained. Prior Anticoagulants: The patient has taken Eliquis (apixaban), last dose was 3 days prior to procedure. ASA Grade Assessment: III - A patient with severe systemic disease. After reviewing the risks and benefits, the patient was deemed in satisfactory condition to undergo the procedure. The benefits, risks and alternatives of theprocedure and sedation were discussed and informed consent was obtained. All questions were answered. Please referto the signed informed consent document in the medical record. The scope was passed under direct vision.The Pediatric Colonoscope PCF-H190L [id number] was introduced through the anus and advanced to the the cecum, identified by appendiceal orifice andileocecal valve. The bowel preparation used was Miralax. The bowel preparation used was bisacodyl tablets. The quality of the bowel preparation was excellent.Bowel prep was administered using a split dose. Findings: The perianal and digital rectal examinations were normal. The ileum appeared normal. A 3 mm polyp was found in the cecum. The polyp was sessile. The polyp was removed with a jumbo cold forceps. Resection and retrieval were complete. The ascending colon and transverse colon were normal Two sessile polyps were found in the mid descending colon. The polyps were 6 to 8 mm in size. These polyps were removed with a cold snare. Resection and retrieval were complete. A 14 mm polyp was found in the distal descending colon. The polyp was sessile. The polyp was removed with a cold snare. Resection and retrieval were complete. To prevent bleeding after the polypectomy, three hemostatic clips were successfully placed (MR conditional).There was no bleeding at the end of the procedure. Multiple small-mouthed diverticula were found in the sigmoid colon. Internal hemorrhoids were found during retroflexion. The hemorrhoids were small. Electronically signed by Pebbles Felton M.D. Pebbles Felton M.D. 01/07/2020 10:08:57 AM Number of Addenda: 0 Note Initiated On: 01/07/2020 9:12 AM Procedure Code(s): --- Professional --- 55298, Colonoscopy, flexible; with removal of tumor(s), polyp(s), or other lesion(s) by snare technique 49989, 59, Colonoscopy, flexible; with biopsy, single or multiple Diagnosis Code(s): --- Professional --- K64.8, Other hemorrhoids D12.0, Benign neoplasm of cecum D12.4, Benign neoplasm of descending colon R19.5, Other fecal abnormalities D50.9, Iron deficiency anemia, unspecified K57.30, Diverticulosis of large intestine without perforation orabscess without bleeding CPT copyright 2017 [employer]. All rights reserved. The codes documented in this report are preliminary and upon transcript clerk reviewmay be revised to meet current compliance requirements. Recognized by the [employer] for promoting quality in endoscopy Pebbles Felton MD ENDOSCOPY PROCEDURES Final Result * Diagnostic Mammogram Bilateral [place] (11/12/2019) Anatomical Region Laterality Modality Breast Bilateral Mammography Narrative 11/12/[address] [facility] us Historical Provider IMG MAMMO PROCEDURES [place] l Result * Hepatitis C Antibody Reflex Hepatitis C RNA Quantitative PCR (05/11/2017 5:12 PM CDT) Hep C Ab Negative Negative [facility] Blood specimen (specimen) 05/11/2017 5:12 PM CDT 05/11/2017 5:34 PM CDT Francisco Long MD LAB MICROBIOLOGY - GENERAL ORD ERABLES Final Result Performing Organization Address City/State/ZIP Co co Phone Number [facility] [phone] Department [place] [address] from Last 3 Months or Most Recently Relevant to Health Maintenance Insurance [facility] MEDICARE CIGNA MEDICARE SUPPLEMENT INSURANCE MEDICARE [employer] HE[employer]ARE COMMERCIAL GENERIC CIGNA MEDICARE SUPPLEMENT INSURANCE [employer] [facility] Advance Directives For more information, please contact: [phone] * Full Code (Latest Code Status on File) Date Activated Date Inactivated Comments 01/05/2021 11:26 AM 01/05/2021 6:18 PM * Full Code Date Activated Date Inactivated Comments 01/05/2021 11:26 AM 01/05/2021 11:26 AM * Full Code Date Activated Date Inactivated Comments 01/07/2020 8:26 AM 01/07/2020 6:39 PM * Full Code Date Activated Date Inactivated Comments 01/07/2020 8:26 AM 01/07/2020 8:26 AM * Full Code Date Activated Date Inactivated Comments 01/05/2020 5:42 PM 01/07/2020 8:26 AM Care Teams Manufacturing Engineer Relationship Specialty Start Date End Date Mariangel Quiñonez MD [address] [address] PCP - General Family Medicine 05/16/22 Neil Ag MD PhD [address] [place] [address] Radiation Oncologist Radiation Oncology 12/17/18 [place] [address] [facility] [address] [place] [id number] Referring Physician General Surgery 12/17/18 [place] [address] [facility] [address] [place] [id number] Medical Oncologist/Metal Fabricating Supervisor Medical Oncology 12/17/18 [place] [address] [facility] [address] [place] [address] Consulting Physician Gastroenterology 01/07/20
--- OUTSIDE RECORDS SUMMARY | 2024-11-16 12:52 | XMS_ITS | Encounter Summary ---
Author Organization [facility] Healthcare Address [address] [place] [address] Care Team Providers Care Philatelic Consultant Name Role Phone Neil Ag MD PhD Unavailable [phone] Ita Vazquez MD Unavailable Caron Mohan MD Unavailable Pebbles Felton MD Unavailable [phone] Mariangel Quiñonez MD Primary Care Provide r Reason for Referral * Diagnostic Imaging (Routine) - Closed Specialty Diagnoses / Procedures Referred By Halima garcia Referred To Contact Diagnoses Menopause Procedures Dexa Axial Skeleton Bone Density 1 or 2 Site Caron Mohan MD [address] [facility] [address] [place] [address] Phone: tel: fax: [facility] [address] [place] [address] Referral ID Status Reason Start Date Expiration Date Visits Re quested Visits Authorized [id number] Closed 02/12/2024 03/13/2025 1 1 Reason for Visit * Diagnostic Imaging (Routine) - Closed Specialty Diagnoses / Procedures Referred By Contac t Referred To Contact Diagnoses Menopause Procedures Dexa Axial Skeleton Bone Density 1 or 2 Site Caron Mohan MD [address] [place] [address] [place] [address] Phone: tel: fax: [facility] [address] [place] [address] Referral ID Status Reason Start Date Expiration Date Visits Re quested Visits Authorized [id number] Closed 02/12/2024 03/13/2025 1 1 Encounter Details Date Type Department Care Team (Latest Contact Info) Description 02/19/2024 9:13 AM CDT - 02/19/2024 11:59 PM CDT Hospital Encounter [facility] [address] [place] [address] Menopause Discharge Disposition: Discharge to home or self care Social History Tobacco Use Types Packs/Day Years [...] on file 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 Gender Identity Not on file Sexual Orientation Not on file documented as of this encounter Medications at Time of Discharge letrozole (FEMARA) 2.5 mg tablet Take 1 tablet (2.5 mg total) by mouth daily losartan (COZAAR) 25 mg tablet Take 1 tablet (25 mg total) by mouth daily 90 tablet 1 12/06/2023 methotrexate 2.5 mg tabletIndication s:Rheumatoid Arthritis Take 1 tablet (2.5 mg total) by mouth every 7 days Takes 6 tablets every Sunday albuterol HFA (PROVENTIL HFA,VENTOLIN HFA,PROAIR HFA) 90 mcg/actuation inhalerIndicatio ns:Wheezing Inhale 2 puffs every 6 (six) hours as needed for wheezing 1 each 12/08/2022 4 carvediloL (COREG) 6.25 mg tablet TAKE ONE TABLET BY MOUTH TWICE DAILY WITH MEALS 180 tablet 1 05/16/2022 4 cholecalciferol (VITAMIN D-3) 400 unit capsule 1,000 Units 02 4 cyclobenzaprine (FLEXERIL) 5 mg tablet Take 1 tablet (5 mg total) by mouth 3 (three) times a day as needed for muscle spasms 20 tablet 12/06/2023 4 famotidine (PEPCID) 40 mg tablet Take 1 tablet (40 mg total) by mouth daily 90 tablet 3 12/30/[address] (PROTONIX) 40 mg EC tablet Take 1 tablet (40 mg total) by mouth daily 30 tablet 11 03/02/2022 4 predniSONE (DELTASONE) 20 mg tablet TAKE 2 TABLETS BY MOUTH DAILY FOR 5 DAYS 02/08/2023 4 documented as of this encounter Discharge Disposition Disposition Code Departure Means Destination Discharge to home or self care documented in this encounter Plan of Treatment Not on file documented as of this encounter Procedures Procedure Name Priority Date/Time Associated Diagnosis Comments DEXA AXIAL SKELETON BONE DENSITY 1 OR MORE SITES Schedule Routine, Read Routine (OP Routine) 02/19/2024 9:29 AM CDT Menopause documented in this encounter Results * Dexa Axial Skeleton Bone Density 1 or 2 Site (02/19/2024 9:29 AM CDT) Anatomical Region Laterality Modality Body N/A Other 02/19/2024 4:29 PM CDT Narrative 02/19/2024 4:29 PM CDT EXAM DESCRIPTION: DEXA AXIAL SKELETON BONE DENSITY 1 OR MORE SITES REASON FOR STUDY: 78 y/o ?? year old ??F ??with given history of: ??MENOPAUSE ?? Osteoporosis screening ??Post menopausal ? Seo Expert/Model: [employer] SL (S/N [id number]) CLINICAL INFORMATION: Current height: ??67 ??inches ? [...] PM T: ??02/19/2024 4:29 PM Report ID: [id number] Reading Location: ??[id number] Procedure Note Caesar Navarro MD - 02/19/2024 EXAM DESCRIPTION: DEXA AXIAL SKELETON BONE DENSITY 1 OR MORE SITES REASON FOR STUDY: 78 y/o year old F with given history of: MENOPAUSE Osteoporosis screening Post menopausal Seo Expert/Model: [employer] (S/N [id number]) CLINICAL INFORMATION: Current height: 67 inches Maximum [...] Caesar Navarro M.D. MF: MAXINE Report ID: [id number] Reading Location: [place] [address] Caron Mohan MD IMG DXA PROCEDURES Fi nal Result documented in this encounter Visit Diagnoses Diagnosis Menopause Symptomatic menopausal or female climacteric states documented in this encounter Care Teams Philatelic Consultant Relationship Specialty Start Date End Date Mariangel Quiñonez MD [address] [address] PCP - General Family Medicine 05/16/22 Neil Ag MD PhD [address] [facility] [place] [address] Radiation Oncologist Radiation Oncology 12/17/18 [place] [address] [facility] [address] [place] [address] Referring Physician General Surgery 12/17/18 [place] [address] [facility] [address] [place] [address] Medical Oncologist/Contract Administration Specialist Medical Oncology 12/17/18 [place] [address] [facility] [address] [place] [address] Consulting Physician Gastroenterology 01/07/20 documented as of this encounter
--- OUTSIDE RECORDS SUMMARY | 2024-11-16 12:52 | XMS_ITS | Clinical Summary ---
Author Organization [facility] Address [address] [place] [address] Care Team Providers Care Clearing Inspector Name Role Phone Neil Ag MD PhD Unavailable Ita Vazquez MD Unavailable Caron Mohan MD Unavailable [phone] Pebbles Felton MD Unavailable [phone] Mariangel Quiñonez MD Primary Care Provide r Allergies Active Allergy Reactions Criticality Noted Date [...] daily 90 tablet 1 4 Active iron demihl-E-A92-Ca -suc-stoma (MULTIGEN) 70 mg-150 mg-10 mcg-2 mg-75 mg tablet 1 tablet daily Activ e Active Problems Problem Noted Date Diagnosed Date BMI 28.0-28.9,adult 06/26/2024 Left hip pain 12/06/2023 Assessment & Plan (12/06/2023 12:23 PM SAND HAULER): New concern Not at goal Muscle spasm Referral to physical therapy Flexeril 5mg at night Do not operate heavy machinery If no improvement will get xrays and referral to pain management F/u prn Encounter for wellness examination 10/02/2022 Assessment & Plan (12/06/2023 12:02 PM SAND HAULER): Ordered CBC, cmp, lipid, hgb a1c, TSH, Flu declines Zoster declines pcv20 declines Colonoscopy:up to date Pap smear:followed with ob Mammo:follows with Dr. Kimberlee Silva in 1 year for annual Assessment & Plan (10/03/2022 10:39 AM SAND HAULER): Ordered CBC, cmp, lipid, hgb a1c, TSH, Flu given today Colonoscopy:up to date Pap smear:follows with ob Mammo:follows with Dr. Kimberlee Silva in 1 year for annual Iron deficiency anemia 01/07/2021 Overview (01/07/2021): Added automatically from request for surgery [id number] Assessment & Plan (06/26/2024 1:16 PM CDT): Stable / clinically quiescent. Will continue to monitor. Iron panel ordered for 6 months Assessment & Plan (12/06/2023 12:20 PM SAND HAULER): Stable / clinically quiescent. Will continue to monitor. Iron panel ordered Acute upper GI bleed 01/03/2021 Overview (01/03/2021): Added automatically from request for surgery [id number] Type 2 diabetes mellitus with hyperlipidemia 03/2021 [...] months Assessment & Plan (12/06/2023 11:44 AM SAND HAULER): The patient was counseled on a heart-healthy, [...] months Assessment & Plan (10/02/2022 9:57 PM SAND HAULER): The patient was counseled on a heart-healthy, [...] 07/02/2020 Assessment & Plan (12/06/2023 7:16 AM SAND HAULER): eliquis was stopped because of hx of GI bleeding Assessment & Plan (10/03/2022 10:17 AM SAND HAULER): eliquis was stopped because of hx of GI bleeding Chronic GERD 07/02/2020 History of breast cancer 07/02/2020 Assessment & Plan (12/06/2023 7:16 AM SAND HAULER): Still follows with Dr. Mohan Continue with letrozole Assessment & Plan (10/03/2022 10:19 AM SAND HAULER): Still follows with Dr. Mohan Continue with letrozole History of uterine cancer 07/02/2020 Assessment & Plan (12/06/2023 7:16 AM SAND HAULER): She follows with ob Assessment & Plan (10/03/2022 10:19 AM SAND HAULER): She follows with ob High risk of cardiac event 07/01/2020 Iron deficiency anemia due to chronic blood loss 01/06/2020 Assessment & Plan (01/06/2020 5:46 AM SAND HAULER): Likely GI source as patient has positive guaiac. Hemoglobin was as high as 11.1 in November. Patient has been seen by GI and 1 unit of PRBCs ordered. Awaiting repeat hemoglobin. Ferrlecit ordered by Dr. Felton already. Continue to monitor. Will hold anticoagulation for now. Chronic diastolic heart failure 12/03/2019 Assessment & Plan (12/06/2023 7:15 AM SAND HAULER): stable Assessment & Plan (10/02/2022 9:56 PM SAND HAULER): stable Malignant neoplasm of upper- inner quadrant of left breast in female, estrogen receptor positive 12/17/2018 Cancer Staging:Pathologic stage from 12/17/2018:Stage IA(pT1b, pN1mi(sn), cM0, G2, ER: Positive, NC: Positive, HER2: Negative) - Signed by Neil Ag MD PhD on 12/17/2018 Assessment & Plan (01/06/2020 5:46 AM SAND HAULER): Hold letrozole for now as it increases risk for thromboembolism. Assessment & Plan (12/02/2019 7:15 PM SAND HAULER): S/p lumpectomy, home letrozole to be replaced with formulary anastrozole while inpatient per pharmacy. Followed by obgyn specialist onc as an outpatient. Mixed hyperlipidemia 11/28/2017 Assessment & Plan (12/06/2023 12:19 PM SAND HAULER): Stable / clinically quiescent. Will continue to monitor. Unable to tolerate statin medication at any dose Causes muscle aches Lipid panel ordered Assessment & Plan (04/03/2023 10:57 AM CDT): Stable / clinically quiescent. Will continue to monitor. Continue statin Assessment & Plan (10/02/2022 9:55 PM SAND HAULER): Stable / clinically quiescent. Will continue to monitor. Continue statin Essential hypertension 11/28/2017 Assessment & Plan (06/26/2024 6:59 AM CDT): Bp in the office today BP Readings from Last 1 Encounters: 12/06/23 132/80 Continue current regimen of carvedilol and losartan 100mg daily Recommend DASH diet, heart-healthy lifestyle, exercise. Discussed the risks of hypertension. F/u in 6 months Assessment & Plan (12/06/2023 11:32 AM SAND HAULER): Bp in the office today BP Readings [...] months Assessment & Plan (10/03/2022 10:15 AM SAND HAULER): Bp in the office today BP Readings from Last 1 Encounters: 10/03/22 136/78 Continue current regimen of carvedilol and losartan Recommend DASH diet, heart-healthy lifestyle, exercise. Discussed the risks of hypertension. F/u in1 year Assessment & Plan (01/06/2020 5:42 AM SAND HAULER): Currently normotensive. Continue carvedilol with hold parameters. Holding losartan and hydrochlorothiazide for now. Assessment & Plan (12/02/2019 7:14 PM SAND HAULER): Continue home antihypertensives. Rheumatoid arthritis involvi ng multiple sites with positive rheumatoid factor ([facility]) 11/28/2017 Assessment & Plan (12/06/2023 7:16 AM SAND HAULER): Stable Continue with rheumatology Continue with methotrexate Assessment & Plan (10/03/2022 10:21 AM SAND HAULER): Stable Continue with rheumatology Continue with methotrexate Assessment & Plan (01/06/2020 5:42 AM SAND HAULER): Patient is on methotrexate which she takes on Sunday. Assessment & Plan (12/02/2019 7:16 PM SAND HAULER): Continue home methotrexate, administered weekly on Wednesdays. Hiatal hernia Resolved Problems Problem Noted Date Diagnosed Date Resolved Date Gastrointestinal hemorrhage associated with anorectal source 01/05/2020 07/02/2020 Overview (01/06/2020): Added automatically from request for surgery [id number] Bilateral pulmonary embolism ([facility]) 12/02/2019 07/02/2020 Assessment & Plan (12/02/2019 7:13 PM SAND HAULER): Cause shortness of breath cough, seen on chest CT today. Therapeutic Lovenox started in ED, switched to Eliquis for outpatient therapy. TTE ordered for AM to ensure no right heart strain. Cause unclear at this point, chest CT showed a nodular density in the left breast and recommended follow-up mammogram, however patient had a normal mammogram 3 weeks ago from her obgyn specialist onc physician at [facility] (results in Care Everywhere). Encounter for screening colonoscopy 09/29/2019 07/02/2020 Overview (09/29/2019): Added automatically from request for surgery [id number] Malignant neoplasm of uterus (CMS/HCC) 12/17/2018 07/02/2020 Assessment & Plan (12/02/2019 7:15 PM SAND HAULER): S/p hysterectomy. Viral URI with cough 10/30/2018 019 Assessment & Plan (10/30/2018 11:28 AM SAND HAULER): Likely viral based on symptoms. Flonase prescribed, conservative management advised including use of a nasal rinses, humidifier or paper eyes are along with indication to f/u in office with any worsening symptoms or persistent symptoms. Pre-diabetes 11/28/2017 11/30/2020 Benign hypertension 04/11/2014 12/17/19 19 Overview (03/01/2017): BENIGN HYPERTENSION Encounters Date Type Department Care Team Description 09/04/2024 3:30 PM CDT Office Visit [facility] [place] [address] [place] [address] Lisa Rojas NP Rash (Primary Dx) 09/04/2024 Nurse Triage [facility] Care at [address] [place] [address] Pricilla Salter RN from Last 3 Months Immunizations Name Administration Dates Next Due Influenza, Quadrivalent, Hig h Dose, Preservative Free, Intrr 10/03/2022,11/01/2020 Influenza, Trivalent, High D ose, Split, Preservative Free, Intramuscular 09/25/2019,09/13/2018,12/24/2017 Influenza, Unspecified 12/06/2023(Deferr ed: Patient Refused),03/28/2022(Deferred: Patient Refused),09/28/2021(Deferred: Patient Refused),06/26/2021(Deferred: Patient Refused) Pfizer SARS-CoV-2 Monovalent Vaccination (12+ Yrs) PURPLE 02/23/2021,01/26/2021 Pneumococcal Conjugate PCV 13 12/17/2018 Pneumococcal Conjugate, Unspecified 12/06/2023(D eferred: Patient Refused) Tdap 09/13/2018 Surgical History Surgery Date Site/Laterality Comments CATARACT EXTRACTION Cataract extraction HYSTERECTOMY 06/26/2018 - 07/26/2018 COLONOSCOPY 12/27/2019 - 01/24/2020 BREAST LUMPECTOMY 11/26/2018 - 11/25/2019 Left REPLACEMENT TOTAL KNEE BILATERAL Medical History Medical History Date Comments Hyperlipidemia Hyperlipidemia Hx Other Medical B/L arthroscopi c knee surg Hypertension Hypertension Hx Other Medical RA Hx Other Medical R knee replacem ent Hx Other Medical blood clot- rig ht leg Screening mammogram, encounter for 1945 Uterine cancer (CMS/HCC) (HCC) 04/2018 GERD (gastroesophageal reflux disease) Anemia Family History Medical History Relation Name Comments Diabetes Father Diabetes mellit us; Heart attack Father Myocardial infa rction; Heart disease Father Heart disease; Other Father's Sister 2 mastectomy . ??CA; Diabetes Mother Diabetes mellit us; Diabetes type II Other Family hist ory of Diabetes -Type 2; Relation Name Status Comments Father Alive Father's Sister 1 Alive Father's Sister 2 Mother Other Social History Tobacco Use Types Packs/Day Years [...] on file 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 SAND HAULER Gender Identity Not on file Sexual Orientation Not on file Obstetrics History Para Term AB IAB SAB Ectopic Multiple Livin g Live Births 0 0 0 0 0 0 0 0 0 0 0 Last Filed Vital Signs Vital Sign Reading [...] 09/04/2024 3:25 PM CDT Plan of Treatment Health Maintenance Due Date Last Done Comments Hepatitis B Screening 1963 Foot Exam 10/03/2023 10/03/2022, 11/2020, 12/06/2020, Additional history exists Covid-19 Vaccine ( season) 2024 09/25/2021, 02/23/2021, 01/26/2021 Influenza Vaccine (#1) 2024 , 11/01/2020, 09/25/2019, Additional history exists Well Visit 65+ 12/06/2024 12/06/2023, 06/2022, 09/28/2021, Additional history exists Hemoglobin A1C 12/21/2024 06/20/2024, 050 12/2022, 10/12/2022, Additional history exists Albumin Creatinine Ratio, Urine 06/20/2025 06/20/2024, 03/27/2023, 10/12/2022, Additional history exists Lipid Panel 06/20/2025 06/20/2024, 050 12/2022, 10/12/2022, Additional history exists eGFR 06/20/2025 06/20/2024, 050 12/2022, 10/12/2022, Additional history exists Depression Screening 06/26/2025 06/26/2024, 12/06/2023, 04/03/2023, Additional history exists Fall Risk Assessment 06/26/2025 06/26/2024, 12/06/2023, 04/03/2023, Additional history exists Pneumococcal vaccine 65+ (2 of 2 - PPSV23 or PCV20) 06/26/2025 12/17/2018 Postponed fro m 02/11/2019 (Patient declined, but will receive in the future) Zoster Vaccine (1 of 2) 06/26/2025 Post poned from 1965 (Patient declined, but will receive in the future) Dilated Eye Exam 08/28/2025 08/28/2023, 03/08/2022 Osteoporosis Screening-Bone Density Scan 02/18/2026 02/19/2024, 06/28/2021, 03/11/2019, Additional history exists DTaP/Tdap/Td Vaccine (2 - Td or Tdap) 09/13/2028 09/13/2018 Hepatitis C Screening Completed 05/11/2017, 017 Breast Cancer Screening-Mammogram Discontinued 11/12/2019, 09/03/2018, 05/25/2017, Additional history exists Colon Cancer Screening-CT Colonography Discontinued 01/07/2020, 10/05/2009, 10/05/2009 Colon Cancer Screening-Colonoscopy Discontinued 01/07/2020, 10/05/2009, 10/05/2009 Colon Cancer Screening-DNA Stool Discontinued 01/07/2020, 10/05/2009, 10/05/2009 Colon Cancer Screening-FIT Discontinued 01/07, 10/05/2009, 10/05/2009 Colon Cancer Screening-FOBT Discontinued 01/07/2020, 10/05/2009, 10/05/2009 Colon Cancer Screening-Sigmoidoscopy Discontinued 01/07/2020, 10/05/2009, 10/05/2009 Colorectal Cancer Screening Discontinued Procedures Procedure Name Priority Date/Time Associated Diagnosis [...] 12:56 PM CDT COLONOSCOPY 01/07/2020 9:12 AM SAND HAULER DIAGNOSTIC MAMMOGRAM BILATERAL W MOODY Schedule Routine, [...] LDL-C. Harry YUAN et al. RANDALL. 2013;310(19): 7206-5000 (http://education.[employer]/faq/MFE075) Chol/HDL ratio 3.9 <5.0 (calc) [facility] [...] LAB BLOOD ORDERABLES Final Result [facility] [address] [place] [address] * Albumin Creatinine Ratio, Urine (06/20/2024 9:02 AM CDT) Creatinine, ur 105 20 - 275 mg/dL [...] AM CDT 06/20/2024 9:06 AM CDT Narrative RUST - 06/21/2024 2:32 PM CDT FASTING:YES FASTING: YES Mariangel Quiñonez MD LAB URINE ORDERABLES Final Result [facility] [address] [phone] * (ABNORMAL) Hemoglobin A1c (06/20/2024 9:02 AM CDT) Hgb A1C 6.5(H) <5.7 % of total Hgb [facility] Comment: For someone without known diabetes, [...] change in test platforms from the [employer] to the Jocelynn varun c503 may have shifted HbA1c results compared to historical results. Based on laboratory validation testing conducted at [employer], the Jocelynn platform relative to the Dejesus [...] MD LAB BLOOD ORDERABLES Final Result [facility] [address] [place] [address] * (ABNORMAL) Comprehensive metabolic panel (06/20/2024 9:02 [...] Quiñonez MD LAB BLOOD ORDERABLES Final Result LEXI [facility] [address] [facility] [place] [address] * Dexa Axial Skeleton Bone Density 1 or 2 Site (02/19/2024 9:29 AM CDT) Anatomical Region Laterality Modality Body N/A Other 02/19/2024 4:29 PM CDT Narrative 02/19/2024 4:29 PM CDT EXAM DESCRIPTION: DEXA AXIAL SKELETON BONE DENSITY 1 OR MORE SITES REASON FOR STUDY: 78 y/o ?? year old ??F ??with given history of: ??MENOPAUSE ?? Osteoporosis screening ??Post menopausal ? Nylon Mender/Model: plista Discovery SL (S/N [id number]) CLINICAL INFORMATION: Current height: ??67 ??inches ? [...] PM T: ??02/19/2024 4:29 PM Report ID: [id number] Reading Location: ??[id number] Procedure Note Caesar Navarro MD - 02/19/2024 EXAM DESCRIPTION: DEXA AXIAL SKELETON BONE DENSITY 1 OR MORE SITES REASON FOR STUDY: 78 y/o year old F with given history of: MENOPAUSE Osteoporosis screening Post menopausal Nylon Mender/Model: [employer] Systems (S/N 13557) CLINICAL INFORMATION: Current height: 67 inches Maximum [...] Caesar Navarro M.D. MF: MAXINE Report ID: [id number] Reading Location: [id number] us Caron Mohan MD IMXiomy DXA PROCEDURES Fi nal Result * DIABETES EYE EXAM (08/28/2023 12:56 PM CDT) SCRIBED HM DIABETIC DILATED EYE EXAM Normal us Historical Provider HEALTH MAINTENANCE Final Result * COLONOSCOPY (01/07/2020 9:12 AM SAND HAULER) Anatomical Region Laterality Modality Other Narrative Procedure Note Pebbles Felton MD - 01/07/2020 9:12 AM CST [facility] Patient Name: Jolene Cedillo Procedure Date: 01/07/2020 9:12 AM Date of : 1945 Admit Type: Inpatient Age: 74 Gender: Female Attending MD: Pebbles Felton M.D. Room: [facility] 1 Note Status: Finalized Patient [...] passed under direct vision.The Pediatric Colonoscope [id number]-H190L [id number] was introduced through the anus and advanced [...] 9:12 AM Procedure Code(s): --- Professional --- 17818, Colonoscopy, flexible; with removal of tumor(s), polyp(s), or other lesion(s) by snare technique 65752, 59, Colonoscopy, flexible; with biopsy, single or multiple Diagnosis Code(s): --- Professional --- K64.8, Other hemorrhoids D12.0, Benign neoplasm of cecum D12.4, Benign neoplasm of descending colon R19.5, Other fecal abnormalities D50.9, Iron deficiency anemia, unspecified K57.30, Diverticulosis of large intestine without perforation orabscess without bleeding CPT copyright 2017 [employer]. All rights reserved. The codes documented in this report are preliminary and upon group exercise manager reviewmay be revised to meet current compliance requirements. Recognized by the [employer] for promoting quality in endoscopy us Pebbles Felton MD ENDOSCOPY PROCEDURES Final Result * Diagnostic Mammogram Bilateral W Moody (11/12/2019) Anatomical Region Laterality Modality Breast Bilateral Mammography Narrative 11/12/2019 In care everywhere from [facility] Historical Provider MD MCNAIR MAMMO PROCEDURES Humaira l Result * Hepatitis C Antibody Reflex Hepatitis C RNA Quantitative PCR (05/11/2017 5:12 PM CDT) Hep C Ab Negative Negative MEHRAN LIZA Blood specimen (specimen) 05/11/2017 5:12 PM CDT 05/11/2017 5:34 PM CDT Francisco Long MD LAB MICROBIOLOGY - GENERAL ORD ERABLES Final Result [facility] [id number] Department [place] [address] from Last 3 Months or Most Recently Relevant to Health Maintenance Insurance Smart Checkout [employer] MEDICARE [facility] MEDICARE SUPPLEMENT INSURANCE [facility]IC[facility] [place] [address] [place] [address] MEDICARE SUPPLEMENT INSURANCE [employer] [facility] ADVANTRA Advance Directives For more information, please contact: [phone] * Full Code (Latest Code Status on [...] 5:42 PM 01/07/2020 8:26 AM Care Teams Clearing Inspector Relationship Specialty Start Date End Date Mariangel Quiñonez MD [address] [place] [address] [place] [address] PCP - General Family Medicine 05/16/22 Neil Ag MD PhD [address] [place] [address] Radiation Oncologist Radiation Oncology 12/17/18 [place] [id number] [address] [facility] [address] [place], [place] [id number] Referring Physician General Surgery 12/17/18 [place] [id number] [facility] [address] [place], [place] [id number] Medical Oncologist/Fisheries Inspector Medical Oncology 12/17/18 [place] [address] [facility] [address] [facility] [place], [place] [id number] Consulting Physician Gastroenterology 01/07/20
--- OUTSIDE RECORDS SUMMARY | 2024-11-16 12:52 | XMS_ITS ---
Author Organization [facility] Address [address] [place] [address] Care Team Providers Care High Lift Operator Name Role Phone Neil Ag MD PhD Unavailable Ita Vazquez MD Unavailable Caron Mohan MD Unavailable Pebbles Felton MD Unavailable [phone] Mariangel Quiñonez MD Primary Care Provide r Active Problems Problem Noted Date Diagnosed Date BMI 28.0-28.9,adult 06/26/2024 Left hip pain 12/06/2023 Assessment & Plan (12/06/2023 12:23 PM AQUATIC DIRECTOR): New concern Not at goal Muscle spasm Referral to physical therapy Flexeril 5mg at night Do not operate heavy machinery If no improvement will get xrays and referral to pain management F/u prn Encounter for wellness examination 10/02/2022 Assessment & Plan (12/06/2023 12:02 PM AQUATIC DIRECTOR): Ordered CBC, cmp, lipid, hgb a1c, TSH, Flu declines Zoster declines pcv20 declines Colonoscopy:up to date Pap smear:followed with ob Mammo:follows with Dr. Mohan F/u in 1 year for annual Assessment & Plan (10/03/2022 10:39 AM AQUATIC DIRECTOR): Ordered CBC, cmp, lipid, hgb a1c, TSH, Flu given today Colonoscopy:up to date Pap smear:follows with ob Mammo:follows with Dr. Mohan F/u in 1 year for annual Iron deficiency anemia 01/07/2021 Overview (01/07/2021): Added automatically from request for surgery [id number] Assessment & Plan (06/26/2024 1:16 PM CDT): Stable / clinically quiescent. Will continue to monitor. Iron panel ordered for 6 months Assessment & Plan (12/06/2023 12:20 PM AQUATIC DIRECTOR): Stable / clinically quiescent. Will continue to monitor. Iron panel ordered Acute upper GI bleed 01/03/2021 Overview (01/03/2021): Added automatically from request for surgery [id number] Type 2 diabetes mellitus with hyperlipidemia 03/2021 [...] months Assessment & Plan (12/06/2023 11:44 AM AQUATIC DIRECTOR): The patient was counseled on a heart-healthy, [...] months Assessment & Plan (10/02/2022 9:57 PM AQUATIC DIRECTOR): The patient was counseled on a heart-healthy, [...] 07/02/2020 Assessment & Plan (12/06/2023 7:16 AM AQUATIC DIRECTOR): eliquis was stopped because of hx of GI bleeding Assessment & Plan (10/03/2022 10:17 AM AQUATIC DIRECTOR): eliquis was stopped because of hx of GI bleeding Chronic GERD 07/02/2020 History of breast cancer 07/02/2020 Assessment & Plan (12/06/2023 7:16 AM AQUATIC DIRECTOR): Still follows with Dr. Mohan Continue with letrozole Assessment & Plan (10/03/2022 10:19 AM AQUATIC DIRECTOR): Still follows with Dr. Mohan Continue with letrozole History of uterine cancer 07/02/2020 Assessment & Plan (12/06/2023 7:16 AM AQUATIC DIRECTOR): She follows with ob Assessment & Plan (10/03/2022 10:19 AM AQUATIC DIRECTOR): She follows with ob High risk of cardiac event 07/01/2020 Iron deficiency anemia due to chronic blood loss 01/06/2020 Assessment & Plan (01/06/2020 5:46 AM AQUATIC DIRECTOR): Likely GI source as patient has positive guaiac. Hemoglobin was as high as 11.1 in November. Patient has been seen by GI and 1 unit of PRBCs ordered. Awaiting repeat hemoglobin. Ferrlecit ordered by Dr. Felton already. Continue to monitor. Will hold anticoagulation for now. Chronic diastolic heart failure 12/03/2019 Assessment & Plan (12/06/2023 7:15 AM AQUATIC DIRECTOR): stable Assessment & Plan (10/02/2022 9:56 PM AQUATIC DIRECTOR): stable Malignant neoplasm of upper- inner quadrant of left breast in female, estrogen receptor positive 12/17/2018 Cancer Staging:Pathologic stage from 12/17/2018:Stage IA(pT1b, pN1mi(sn), cM0, G2, ER: Positive, KS: Positive, HER2: Negative) - Signed by Neil Ag MD PhD on 12/17/2018 Assessment & Plan (01/06/2020 5:46 AM AQUATIC DIRECTOR): Hold letrozole for now as it increases risk for thromboembolism. Assessment & Plan (12/02/2019 7:15 PM AQUATIC DIRECTOR): S/p lumpectomy, home letrozole to be replaced with formulary anastrozole while inpatient per pharmacy. Followed by circuit manager onc as an outpatient. Mixed hyperlipidemia 11/28/2017 Assessment & Plan (12/06/2023 12:19 PM AQUATIC DIRECTOR): Stable / clinically quiescent. Will continue to monitor. Unable to tolerate statin medication at any dose Causes muscle aches Lipid panel ordered Assessment & Plan (04/03/2023 10:57 AM CDT): Stable / clinically quiescent. Will continue to monitor. Continue statin Assessment & Plan (10/02/2022 9:55 PM AQUATIC DIRECTOR): Stable / clinically quiescent. Will continue to monitor. Continue statin Essential hypertension 11/28/2017 Assessment & Plan (06/26/2024 6:59 AM CDT): Bp in the office today BP Readings from Last 1 Encounters: 12/06/23 132/80 Continue current regimen of carvedilol and losartan 100mg daily Recommend DASH diet, heart-healthy lifestyle, exercise. Discussed the risks of hypertension. F/u in 6 months Assessment & Plan (12/06/2023 11:32 AM AQUATIC DIRECTOR): Bp in the office today BP Readings [...] months Assessment & Plan (10/03/2022 10:15 AM AQUATIC DIRECTOR): Bp in the office today BP Readings from Last 1 Encounters: 10/03/22 136/78 Continue current regimen of carvedilol and losartan Recommend DASH diet, heart-healthy lifestyle, exercise. Discussed the risks of hypertension. F/u in1 year Assessment & Plan (01/06/2020 5:42 AM AQUATIC DIRECTOR): Currently normotensive. Continue carvedilol with hold parameters. Holding losartan and hydrochlorothiazide for now. Assessment & Plan (12/02/2019 7:14 PM AQUATIC DIRECTOR): Continue home antihypertensives. Rheumatoid arthritis involvi ng multiple sites with positive rheumatoid factor ([facility]) 11/28/2017 Assessment & Plan (12/06/2023 7:16 AM AQUATIC DIRECTOR): Stable Continue with rheumatology Continue with methotrexate Assessment & Plan (10/03/2022 10:21 AM AQUATIC DIRECTOR): Stable Continue with rheumatology Continue with methotrexate Assessment & Plan (01/06/2020 5:42 AM AQUATIC DIRECTOR): Patient is on methotrexate which she takes on Sunday. Assessment & Plan (12/02/2019 7:16 PM AQUATIC DIRECTOR): Continue home methotrexate, administered weekly on Wednesdays. Hiatal hernia Current Oncology Plans No current plan information found. Past Plans Radiation Treatments * Plan Last Treated On Elapsed Days Fractions Treated Prescribed Fraction Dose Prescribed Total Dose LT BRST:1 04/09/2019 21 16 266 cGy 4,256 cGy Reference Point Last Treated On Elapsed Days Session Dose Total Dose LT BRST 04/09/2019 21 0 cGy 4,256 cGy Resolved Problems Problem Noted Date Diagnosed Date Resolved Date Gastrointestinal hemorrhage associated with anorectal source 01/05/2020 07/02/2020 Overview (01/06/2020): Added automatically from request for surgery [id number] Bilateral pulmonary embolism ([facility]) 12/02/2019 07/02/2020 Assessment & Plan (12/02/2019 7:13 PM AQUATIC DIRECTOR): Cause shortness of breath cough, seen on chest CT today. Therapeutic Lovenox started in ED, switched to Eliquis for outpatient therapy. TTE ordered for AM to ensure no right heart strain. Cause unclear at this point, chest CT showed a nodular density in the left breast and recommended follow-up mammogram, however patient had a normal mammogram 3 weeks ago from her circuit manager onc physician at [facility] (results in Care Everywhere). Encounter for screening colonoscopy 09/29/2019 07/02/2020 Overview (09/29/2019): Added automatically from request for surgery [id number] Malignant neoplasm of uterus ([facility]) 12/17/2018 07/02/2020 Assessment & Plan (12/02/2019 7:15 PM AQUATIC DIRECTOR): S/p hysterectomy. Viral URI with cough 10/30/2018 019 Assessment & Plan (10/30/2018 11:28 AM AQUATIC DIRECTOR): Likely viral based on symptoms. Flonase prescribed, conservative management advised including use of a nasal rinses, humidifier or paper eyes are along with indication to f/u in office with any worsening symptoms or persistent symptoms. Pre-diabetes 11/28/2017 11/30/2020 Benign hypertension 04/11/2014 12/17/19 19 Overview (03/01/2017): BENIGN HYPERTENSION
--- OUTSIDE RECORDS SUMMARY | 2024-11-16 12:53 | XMS_ITS | Encounter Summary ---
Author Organization [facility] Address [address] [place] [address] Care Team Providers Care Bone Char Puller Name Role Phone Neil Ag MD PhD Unavailable Ita Vazquez MD Unavailable Caron Mohan MD Unavailable [phone] Pebbles Felton MD Unavailable [phone] Mariangel Quiñonez MD Primary Care Provide r Encounter Details Date Type Department Care Team (Late st Contact Info) Description 07/24/2023 Orders Only [facility] Primary Care at [address] [place] [address] Mariangel Quiñonez MD [address] [place] [address] [address] [place] [address] Other specified disorders of bone density and structure, multiple sites (Primary Dx) Social History Tobacco Use Types Packs/Day Years Used Date Smoking Tobacco: Never Smokeless Tobacco: Never Alcohol Use Standard Drinks/Week Comments No 0 (1 standard drink = 0.6 oz pur e alcohol) Overall Financial Resource Strain (CARDIA) Answe r Date Recorded Difficulty of Paying Living Expenses Not hard at all 12/05/2019 PHQ-2 Answer Date Recorded PHQ-2 Total Score (If total score is 3 or more points, staff should administer the PHQ-9) 0 04/03/2023 Hunger Vital Sign Answer Date Recorded Worried [...] on file 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 COLLEGE INTERN Gender Identity Not on file Sexual Orientation Not on file documented as of this encounter Plan of Treatment Not on file documented as of this encounter Visit Diagnoses Diagnosis Other specified disorders of bone density and structure, multiple sites- Primary documented in this encounter Care Teams Bone Char Puller Relationship Specialty Start Date End Date Mariangel Quiñonez MD [address] [address] PCP - General Family Medicine 05/16/22 Neil Ag MD PhD [address] [place] [address] Radiation Oncologist Radiation Oncology 12/17/18 [place] [address] [facility] [address] [place], [place] [address] Referring Physician General Surgery 12/17/18 [place] [address] [facility] [facility] [address] [place], [place] [id number] Medical Oncologist/Director Of Community Services Medical Oncology 12/17/18 [place] [address] [facility] [address] [place] [address] Consulting Physician Gastroenterology 01/07/20 documented as of this encounter
--- OUTSIDE RECORDS SUMMARY | 2024-11-16 12:53 | XMS_ITS | Encounter Summary ---
Author Organization [facility] Address [address] [place] [address] Care Team Providers Care Firing Pin Gauger Name Role Phone Neil Ag MD PhD Unavailable Ita Vazquez MD Unavailable Caron Mohan MD Unavailable [phone] Pebbles Felton MD Unavailable [phone] Mariangel Quiñonez MD Primary Care Provide r Reason for Visit * Reason Onset Date Comments Medical Question/Miscellaneous 04/05/2023 Encounter Details Date Type Department Care Team (Late st Contact Info) Description 04/05/2023 Telephone [facility] Primary Care at [address] [place] [address] Mariangel Quiñonez MD [address] [place] [address] [address] [place] [address] Medical Question/Miscellaneous Social History Tobacco Use Types Packs/Day Years [...] on file 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 ROUTE PROCESS ADMINISTRATOR Gender Identity Not on file Sexual Orientation Not on file documented as of this encounter Miscellaneous Notes * Telephone Encounter - Arleth Inman MA - 04/05/2023 1:43 PM CDT Lmovm regarding latter is unable to be fax due to pt didn't have any complication walking out of the office * Telephone Encounter - Mariangel Quiñonez MD - 04/05/2023 10:33 AM CDT Unfortunately I am not faxing a letter stating this as I saw her walk in the office and out of the office without any complications * Telephone Encounter - Janna Gonsales - 04/05/2023 9:14 AM CDT Medical Question/Miscellaneous Caller???s Concern: Patient is needing a letter faxed that she needs a scooter to get around, faxedto: fax # [phone], atten: Delaney. Please Advise. Caller???s Call back #: [phone]. Does message need to be routed? Yes-Action Needed documented in this encounter Plan of Treatment Not on file documented as of this encounter Visit Diagnoses Not on filedocumented in this encounter Care Teams Firing Pin Gauger Relationship Specialty Start Date End Date Mariangel Quiñonez MD [address] [address] PCP - General Family Medicine 05/16/22 Neil Ag MD PhD [address] [place] [address] Radiation Oncologist Radiation Oncology 12/17/18 [place] [address] [id number] Referring Physician General Surgery 12/17/18 [place] [address] [address] Medical Oncologist/Manager Of Financial Reporting Medical Oncology 12/17/18 [place] [address] [address] Consulting Physician Gastroenterology 01/07/20 documented as of this encounter
--- OUTSIDE RECORDS SUMMARY | 2024-11-16 12:53 | XMS_ITS | Encounter Summary ---
Author Organization [facility] Address [address] [place] [address] Care Team Providers Care Concierge Manager Name Role Phone Neil Ag MD PhD Unavailable Ita Vazquez MD Unavailable Caron Mohan MD Unavailable Pebbles Felton MD Unavailable [phone] Mariangel Quiñonez MD Primary Care Provide r Encounter Details Date Type Department Care Team (Late st Contact Info) Description 10/03/2022 Orders Only [facility] Primary Care at [address] [place] [address] Mariangel Quiñonez MD [address] [place] [address] [address] [place] [address] Essential hypertension (Primary Dx); Mixed hyperlipidemia; 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) Social History Tobacco Use Types Packs/Day Years [...] points, staff should administer the PHQ-9) 0 10/03/2022 Hunger Vital Sign Answer Date Recorded Worried [...] on file 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 SQL PROGRAMMER ANALYST Gender Identity Not on file Sexual Orientation Not on file documented as of this encounter Plan of Treatment Not on file documented as of this encounter Procedures Procedure Name Priority Date/Time Associated Diagnosis Comments LIPID PANEL WITH REFLEX TO DIRECT LDL Routine 10/12/2022 8:36 AM SQL PROGRAMMER ANALYST Essential hypertension Mixed hyperlipidemia 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) CBC WITH AUTO DIFFERENTIAL Routine 10/12/2022 8:36 AM SQL PROGRAMMER ANALYST Essential hypertension Mixed hyperlipidemia 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) ALBUMIN CREATININE RATIO, URINE Routine 10/12/2022 8:36 AM SQL PROGRAMMER ANALYST Essential hypertension Mixed hyperlipidemia 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) TSH Routine 10/12/2022 8:36 AM SQL PROGRAMMER ANALYST Essential hypertension Mixed hyperlipidemia 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) HEMOGLOBIN A1C Routine 10/12/2022 8:36 AM SQL PROGRAMMER ANALYST Essential hypertension Mixed hyperlipidemia 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) COMPREHENSIVE METABOLIC PANEL Routine 10/12/2022 8:36 AM SQL PROGRAMMER ANALYST Essential hypertension Mixed hyperlipidemia 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) documented in this encounter Results * (ABNORMAL) Hemoglobin A1c (10/12/2022 8:36 AM SQL PROGRAMMER ANALYST) Hgb A1C 6.5(H) <5.7 % of total Hgb [facility] Comment: For someone without known diabetes, [...] A1c for diagnosis of diabetes for children. ?? Blood 10/12/2022 8:36 AM SQL PROGRAMMER ANALYST 10/12/2022 8:38 AM SQL PROGRAMMER ANALYST Narrative [facility] - 10/13/2022 12:30 PM SQL PROGRAMMER ANALYST FASTING:YES FASTING: YES Mariangel Quiñonez MD LAB BLOOD ORDERABLES Final Result Performing Organization Address [facility]/ZIP Co de Phone Number [facility] [address] [place] [address] * Albumin Creatinine Ratio, Urine (10/12/2022 8:36 AM SQL PROGRAMMER ANALYST) Creatinine, ur 149 20 - 275 mg/dL [facility] Microalbumin, ur 1.8 See Note: mg/dL [facility] Comment: Reference Range: Reference Range Not established Microalbumin/creat ratio 12 <30 mcg/mg creat [facility] Comment: The ADA defines abnormalities in albumin excretion as follows: Albuminuria Category ?Result (mcg/mg creatinine) Normal to Mildly increased ?? <30 Moderately increased ? 30-299 Severely increased ? > OR = 300 The ADA recommends that at least two of three specimens collected within a 3-6 month period be abnormal before considering a patient to be within a diagnostic category. Urine 10/12/2022 8:36 AM SQL PROGRAMMER ANALYST 10/12/2022 8:38 AM SQL PROGRAMMER ANALYST Narrative [facility] - 10/13/2022 12:30 PM SQL PROGRAMMER ANALYST FASTING:YES FASTING: YES us Mariangel Quiñonez MD LAB URINE ORDERABLES Final Result [facility] [address] [id number] * TSH (10/12/2022 8:36 AM SQL PROGRAMMER ANALYST) Pathologist [facility] TSH 2.75 0.40 - 4.50 mIU/L [facility] Blood 10/12/2022 8:36 AM SQL PROGRAMMER ANALYST 10/12/2022 8:38 AM SQL PROGRAMMER ANALYST Narrative [facility] - 10/13/2022 12:30 PM SQL PROGRAMMER ANALYST FASTING:YES FASTING: YES Mariangel Quiñonez MD LAB BLOOD ORDERABLES Final Result [facility] [address] [place] [address] * (ABNORMAL) CBC with auto differential (10/12/2022 8:36 AM SQL PROGRAMMER ANALYST) Pathologist [facility] WBC 6.2 3.8 - 10.8 Thousand/u L [facility] RBC, POC 5.26(H) 3.80 - 5.10 Million/uL [facility] Hgb 12.2 11.7 - 15.5 g/dL [facility] Hct 41.2 35.0 - 45.0 % [facility] MCV 78.3(L) 80.0 - 100.0 fL [facility] MCH 23.2(L) 27.0 - 33.0 pg [facility] MCHC 29.6(L) 32.0 - 36.0 g/dL [facility] Rdw 16.8(H) 11.0 - 15.0 % [facility] Platelets 221 140 - 400 Thousand/u L [facility] MPV 10.6 7.5 - 12.5 fL [facility] Neutrophils, abs 4,824 1,500 - 7,800 cells/uL [facility] Lymphocytes, abs 725(L) 850 - 3,900 cells/uL [facility] Monocyte abs 446 200 - 950 cells/uL [facility] Eosinophils, abs 161 15 - 500 cells/uL [facility] Basophils, abs 43 0 - 200 cells/uL [facility] Neutrophils 77.8 % [facility] Lymphocyte pct 11.7 % [facility] Monocytes 7.2 % [facility] Eosinophils 2.6 % [facility] Basophils 0.7 % [facility] Blood 10/12/2022 8:36 AM SQL PROGRAMMER ANALYST 10/12/2022 8:38 AM SQL PROGRAMMER ANALYST Narrative [facility] - 10/13/2022 12:30 PM SQL PROGRAMMER ANALYST FASTING:YES FASTING: YES Mariangel Quiñonez MD LAB BLOOD ORDERABLES Final Result [facility] [address] [place] [address] * (ABNORMAL) Comprehensive metabolic panel (10/12/2022 8:36 AM SQL PROGRAMMER ANALYST) Pathologist [facility] Glucose 138(H) 65 - 99 mg/dL [facility] Comment: ? Fasting reference interval For someone without known diabetes, a glucose value >125 mg/dL indicates that they may have diabetes and this should be confirmed with a follow-up test. BUN 16 7 - 25 mg/dL [facility] Creatinine 0.89 0.60 - 1.00 mg/dL [facility] eGFR 68 > OR = 60 mL/min/1. 73m2 [facility] Comment: The eGFR is based on the CKD-EPI 2020 equation. To calculate the new eGFR from a previous Creatinine or Cystatin C result, go to https://www.kidney.org/professionals/ kdoqi/gfr%5Fcalculator BUN/creat ratio NOT APPLICABLE 6 - 22 (calc) [facility] Sodium 140 135 - 146 mmol/L [facility] Potassium, pl 4.3 3.5 - 5.3 mmol/L [facility] Chloride 103 98 - 110 mmol/L [facility] CO2 31 20 - 32 mmol/L [facility] Calcium 8.9 8.6 - 10.4 mg/dL [facility] Protein, sr 6.3 6.1 - 8.1 g/dL [facility] Albumin 4.0 3.6 - 5.1 g/dL [facility] GLOBULIN 2.3 1.9 - 3.7 g/dL (calc) [facility] Alb/glob ratio 1.7 1.0 - 2.5 (calc) [facility] Bilirubin, total 0.5 0.2 - 1.2 mg/dL [facility] Alk phos 72 37 - 153 U/L [facility] AST 17 10 - 35 U/L [facility] ALT (SGPT) 12 6 - 29 U/L [facility] Blood 10/12/2022 8:36 AM SQL PROGRAMMER ANALYST 10/12/2022 8:38 AM SQL PROGRAMMER ANALYST Narrative [facility] - 10/13/2022 12:30 PM SQL PROGRAMMER ANALYST FASTING:YES FASTING: YES Mariangel Quiñonez MD LAB BLOOD ORDERABLES Final Result [facility] [address] [place] [address] * (ABNORMAL) Lipid panel with reflex to direct LDL (10/12/2022 8:36 AM SQL PROGRAMMER ANALYST) Cholesterol 239(H) <200 mg/dL [facility] HDL 59 > OR = 50 mg/dL [facility] Triglycerides 134 <150 mg/dL [facility] LDL 154(H) mg/dL (calc) [facility] Comment: Reference [...] LDL-C. Harry YUAN et al. RANDALL. 2013;310(19): 0999-1957 (http://education.Ushi.[employer]/faq/KCQ391) Chol/HDL ratio 4.1 <5.0 (calc) [facility] Non-HDL, (LDL+VLDL) 180(H) <130 mg/dL (calc) [facility] Comment: For patients with diabetes plus 1 major ASCVD risk factor, treating to a non-HDL-C goal of <100 mg/dL (LDL-C of <70 mg/dL) is considered a therapeutic option. Blood 10/12/2022 8:36 AM SQL PROGRAMMER ANALYST 10/12/2022 8:38 AM SQL PROGRAMMER ANALYST Narrative [facility] - 10/13/2022 12:30 PM SQL PROGRAMMER ANALYST FASTING:YES FASTING: YES Mariangel Quiñonez MD LAB BLOOD ORDERABLES Final Result [facility] [address] [place] [address] documented in this encounter Visit Diagnoses Diagnosis Essential hypertension- Primary Unspecified essential hypertension Mixed hyperlipidemia 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) documented in this encounter Care Teams Concierge Manager Relationship Specialty Start Date End Date Mariangel Quiñonez MD [address] [address] PCP - General Family Medicine 05/16/22 Neil Ag MD PhD [address] [place] [address] Radiation Oncologist Radiation Oncology 12/17/18 [place] [address] [address] [place] [address] Referring Physician General Surgery 12/17/18 [place] [address] [address] [employer] [facility] [address] Medical Oncologist/Machine Assistant Medical Oncology 12/17/18 [place] [address] [facility] [place] [address] [place] [address] Consulting Physician Gastroenterology 01/07/20 documented as of this encounter
--- OUTSIDE RECORDS SUMMARY | 2024-11-16 12:53 | XMS_ITS | Encounter Summary ---
Author Organization [facility] Healthcare Address [address] [place] [address] Care Team Providers Care Chrome Polisher Name Role Phone Neil Ag MD PhD Unavailable Ita Vazquez MD Unavailable Caron Mohan MD Unavailable Pebbles Felton MD Unavailable [phone] Mariangel Quiñonez MD Primary Care Provide r Encounter Details Date Type Department Care Team (Late st Contact Info) Description 12/06/2023 Telephone [facility] Medical Group Primary Care at [address] [address] Mariangel Quiñonez MD [address] [place] [address] [address] [place] [address] Social History Tobacco Use Types [...] on file 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 SEA KAYAKING GUIDE Gender Identity Not on file Sexual Orientation Not on file documented as of this encounter Miscellaneous Notes * Telephone Encounter - Kelly Thorpe - 12/10/2023 8:47 AM CST Referral sent, office will contact pt for scheduling. KAYAKING GUIDE * Telephone Encounter - Chitra Tyson - 12/06/2023 12:20 PM CST Provider Referral Request Requesting Provider: dr baltazar Specialty:physical therapy Specialty Provider/ desired region: did not specify Diagnosis/Reason for referral: left hip pain and lower back pain Additional information: KAYAKING GUIDE documented in this encounter Plan of Treatment Not on file documented as of this encounter Visit Diagnoses Not on filedocumented in this encounter Care Teams Chrome Polisher Relationship Specialty Start Date End Date Mariangel Quiñonez MD 2 [facility] [address] [address] PCP - General Family Medicine 05/16/22 Neil Ag MD PhD [address] [facility] [place] [address] Radiation Oncologist Radiation Oncology 12/17/18 [place] [address] [facility] [address] [place], [place] [id number] Referring Physician General Surgery 12/17/18 [place] [address] [facility] [address] [place], [place] [id number] Medical Oncologist/Saw Feeder Medical Oncology 12/17/18 [place] [address] [facility] [address] [place] [address] Consulting Physician Gastroenterology 01/07/20 documented as of this encounter
--- OUTSIDE RECORDS SUMMARY | 2024-11-16 12:53 | XMS_ITS | Encounter Summary ---
Author Organization [facility] Healthcare Address [address] [place] [address] Care Team Providers Care Kitchen Clerk Name Role Phone Neil Ag MD PhD Unavailable [phone] Ita Vazquez MD Unavailable Caron Mohan MD Unavailable Pebbles Felton MD Unavailable [phone] Mariangel Quiñonez MD Primary Care Provide r Encounter Details Date Type Department Care Team (Late st Contact Info) Description 12/10/2023 Orders Only [facility] Medical Group Primary Care at [address] [place] [address] Mariangel Quiñonez MD [address] [place] [address] [address] [place], [place] [id number] Left hip pain (Primary Dx); Low back pain, unspecified back pain laterality, unspecified chronicity, unspecified whether sciatica present Social History Tobacco Use Types Packs/Day Years [...] on file 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 Gender Identity Not on file Sexual Orientation Not on file documented as of this encounter Plan of Treatment Not on file documented as of this encounter Visit Diagnoses Diagnosis Left hip pain- Primary Pain in joint, pelvic region and thigh Low back pain, unspecified back pain laterality, unspecified chronicity, unspecified whether sciatica present documented in this encounter Care Teams Kitchen Clerk Relationship Specialty Start Date End Date Mariangel Quiñonez MD [address] [address] PCP - General Family Medicine 05/16/22 Neil Ag MD PhD [address] [place] [address] Radiation Oncologist Radiation Oncology 12/17/18 [place] [address] [facility] [address] [id number] Referring Physician General Surgery 12/17/18 [place] [address] [facility] [facility] [address] [address] Medical Oncologist/Product Managent Intern Medical Oncology 12/17/18 [place] [address] [facility] [address] [address] Consulting Physician Gastroenterology 01/07/20 documented as of this encounter
--- OUTSIDE RECORDS SUMMARY | 2024-11-16 12:53 | XMS_ITS | Encounter Summary ---
Author Organization [facility] Medical Group Address [address] [facility] [address] [place] [address] Care Team Providers Care Cover Maker Name Role Phone Neil Ag MD PhD Unavailable Ita Vazquez MD Unavailable Caron Mohan MD Unavailable Pebbles Felton MD Unavailable [phone] Mariangel Quiñonez MD Primary Care Provide r Encounter Details Date Type Department Care Team (Late st Contact Info) Description 03/28/2023 Telephone [facility] Medical [facility] Primary Care at [address] [place] [address] Mariangel Quiñonez MD [address] [place] [address] [address] [place] [address] Social History Tobacco Use Types [...] on file 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 Gender Identity Not on file Sexual Orientation Not on file documented as of this encounter Miscellaneous Notes * Telephone Encounter - Parrish Patten MA - 03/28/2023 11:49 AM CDT Pt made aware of her 6.2 A1C * Telephone Encounter - Parrish Patten MA - 03/28/2023 11:49 AM CDT ----- Message from Mariangel Quiñonez MD sent at 03/27/2023 10:20 PM CDT ----- Let patient know her a1c was 6.2 documented in this encounter Plan of Treatment Not on file documented as of this encounter Visit Diagnoses Not on filedocumented in this encounter Care Teams Cover Maker Relationship Specialty Start Date End Date Mariangel Qiuñonez MD [address] [address] PCP - General Family Medicine 05/16/22 Neil Ag MD PhD 6 [place] [address] Radiation Oncologist Radiation Oncology 12/17/18 [place] [address] [place] [address] Referring Physician General Surgery 12/17/18 [place] [address] [address] Medical Oncologist/Physician Compensation Analyst Medical Oncology 12/17/18 [place] [address] [address] Consulting Physician Gastroenterology 01/07/20 documented as of this encounter
--- OUTSIDE RECORDS SUMMARY | 2024-11-16 12:53 | XMS_ITS | Encounter Summary ---
Author Organization [facility] Medical Group Address [address] [facility] [address] [place] [address] Care Team Providers Care Network Contract Manager Name Role Phone Neil Ag MD PhD Unavailable Ita Vazquez MD Unavailable Caron Mohan MD Unavailable Pebbles Felton MD Unavailable [phone] Mariangel Quiñonez MD Primary Care Provide r Reason for Visit * Reason Onset Date Comments Medical Question/Miscellaneous 03/27/2023 Encounter Details Date Type Department Care Team (Late st Contact Info) Description 03/27/2023 Telephone [facility] Medical Group Primary Care at [address] [place] [address] Mariangel Quiñonez MD [address] [place] [address] [address] [place] [address] Medical Question/Miscellaneous Social History Tobacco Use Types [...] on file 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 She wanted to make sure office was faxing it to fax [phone]. Called backline and verified that was the one it was faxed to. Office did fax it to the correct number and are refaxing it. Caller???s Call back #: [phone] Does message need to be routed? No * Telephone Encounter - Yosef Kaur - 03/27/2023 8:39 AM CDT Medical Question/Miscellaneous Caller???s Concern: Patient called from [facility] in [place]. She requested her lab ordersbe sent there but were sent to [facility] in error. Called back line and per back line orders faxed to [facility]. Advised patient Caller???s Call back #: [phone] Does message need to be routed? Yes-FYI Only documented in this encounter Plan of Treatment Not on file documented as of this encounter Visit Diagnoses Not on filedocumented in this encounter Care Teams Network Contract Manager Relationship Specialty Start Date End Date Mariangel Quiñonez MD [address] [address] PCP - General Family Medicine 05/16/22 Neil Ag MD PhD 6 [place] [address] Radiation Oncologist Radiation Oncology 12/17/18 [place] [address] [address] [facility] [address] [place] [address] Referring Physician General Surgery 12/17/18 [place] [address] [facility] [address] [place] [employer], [place] [id number] Medical Oncologist/Print Controller Medical Oncology 12/17/18 [place] [address] [facility] [address] [place] [address] Consulting Physician Gastroenterology 01/07/20 documented as of this encounter
--- OUTSIDE RECORDS SUMMARY | 2024-11-16 12:53 | XMS_ITS | Encounter Summary ---
Author Organization [facility] Medical Group Address [address] [facility] [address] [place] [address] Care Team Providers Care Hat And Cap Sewer Name Role Phone Francisco Long MD Primary Care Provider [phone] Neil Ag MD PhD Unavailable [phone] Ita estrada MD Unavailable Caron Mohan MD Unavailable Pebbles Felton MD Unavailable [phone] Encounter Details Date Type Department Care Team (Late st Contact Info) Description 03/29/2022 Telephone [facility] [address] [facility] [address] [place] [address] Francisco Long MD [address] [place] [address] [address] [place] [address] Social History Tobacco Use Types [...] more points, staff should administer the PHQ-9) 1 03/28/2022 Hunger Vital Sign Answer Date Recorded Worried [...] on file 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 Gender Identity Not on file Sexual Orientation Not on file documented as of this encounter Miscellaneous Notes * Telephone Encounter - Katie Apple - 03/29/2022 8:22 AM CDT Pt aware * Telephone Encounter - Herbert Galan MA - 03/29/2022 8:21 AM CDT lmomtrc * Telephone Encounter - Herbert Galan MA - 03/29/2022 8:21 AM CDT ----- Message from Francisco Long MD sent at 03/29/2022 7:17 AM CDT ----- Okay to leave a message A1c test 6.6 excellent sugar control all good news documented in this encounter Plan of Treatment Not on file documented as of this encounter Visit Diagnoses Not on filedocumented in this encounter Additional Health Concerns Infection Onset Date Last Indicated Resolved Time COVID: Recovered Comment:Added based on recent COVID infection. 12/17/2021 03/02/2022 04/16/2022 3:05 AM C DT documented as of this encounter Care Teams Hat And Cap Sewer Relationship Specialty Start Date End Date Francisco Long MD PCP - General 02/23/17 05/15/22 Neil Ag MD PhD 6 [place] [address] Radiation Oncologist Radiation Oncology 12/17/18 [place] [address] [facility] [address] [place], [place] [id number] Referring Physician General Surgery 12/17/18 [place] [address] [facility] [address] [place], [place] [id number] Medical Oncologist/Vp Information Technology Medical Oncology 12/17/18 [place] [address] [facility] [address] [place] [address] Consulting Physician Gastroenterology 01/07/20 documented as of this encounter
--- OUTSIDE RECORDS SUMMARY | 2024-11-16 12:53 | XMS_ITS | Encounter Summary ---
Author Organization [facility] Medical Group Address [address] [facility] [address] [place] [address] Care Team Providers Care Hook And Eye Attacher Name Role Phone Neil Ag MD PhD Unavailable [phone] Ita Vazquez MD Unavailable Caron Mohan MD Unavailable Pebbles Felton MD Unavailable [phone] Mariangel Quiñonez MD Primary Care Provide r Encounter Details Date Type Department Care Team (Late st Contact Info) Description 05/25/2022 Telephone [facility] 2 [facility] [address] [place] [address] Mariangel Quiñonez MD [address] [place] [address] [address] [place] [address] Social History Tobacco Use Types [...] on file 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 * Telephone Encounter - Betty Palmer MA - 05/25/2022 11:21 AM CDT Spoke with [facility] and they are faxing exam over * Telephone Encounter - Betty Palmer MA - 05/25/2022 10:10 AM CDT Tried to call [facility] at [phone] and line was busy Will try again later to have report faxed to us * Telephone Encounter - Katie Apple - 05/25/2022 9:55 AM CDT Pt received a letter from our office about needing a diabetic eye exam. She had one done on 03/08/22 at [facility] in [place]. documented in this encounter Plan of Treatment Not on file documented as of this encounter Visit Diagnoses Not on filedocumented in this encounter Care Teams Hook And Eye Attacher Relationship Specialty Start Date End Date Mariangel Quiñonez MD [address] [address] PCP - General Family Medicine 05/16/22 Neil Ag MD PhD [address] [place] [address] Radiation Oncologist Radiation Oncology 12/17/18 [place] [address] [facility] [address] [place] [id number] Referring Physician General Surgery 12/17/18 [place] [address] [facility] [address] [place] [id number] Medical Oncologist/Director Of Agriculture Medical Oncology 12/17/18 [place] [address] [facility] [address] [place] [address] Consulting Physician Gastroenterology 01/07/20 documented as of this encounter
--- OUTSIDE RECORDS SUMMARY | 2024-11-16 12:53 | XMS_ITS | Encounter Summary ---
Author Organization [facility] Address [address] [place] [address] Care Team Providers Care Marketing Automation Analyst Name Role Phone Neil Ag MD PhD Unavailable [phone] Ita Vazquez MD Unavailable Caron Mohan MD Unavailable Pebbles Felton MD Unavailable [phone] Mariangel Quiñonez MD Primary Care Provide r Reason for Referral * Procedure (Routine) - Closed Specialty Diagnoses / Procedures Referred By Contac t Referred To Contact Diagnoses Impacted cerumen of right ear Procedures Ear Cerumen Removal Hellen Way NP [address] [place] [address] Phone: tel: fax: [facility] Referral ID Status Reason Start Date Expiration Date Visits Re quested Visits Authorized [id number] Closed 12/08/2022 01/07/2024 1 1 INER OPERATOR HELPER Reason for Visit * Reason Comments COVID-19 EVALUATION [facility]- Stuffy nose and Cough. Onset 12/04/22, Vaccinated. OTC Tyenol (last dose last night). No known exp, No covid hx. Encounter Details Date Type Department Care Team (Late st Contact Info) Description 12/08/2022 11:30 AM CALCINER OPERATOR HELPER Office Visit [facility] [address] [place] [address], APOLINAR [address] [place] [address] COVID-19 (Primary Dx); Wheezing; Suspected COVID-19 virus infection; Impacted cerumen of right ear Social History Tobacco Use Types Packs/Day Years [...] on file 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 CALCINER OPERATOR HELPER Gender Identity Not on file Sexual Orientation Not on file documented as of this encounter Last Filed Vital Signs Vital Sign Reading Time Taken Comments Blood Pressure 154/68 12/08/2022 10:52 AM CALCINER OPERATOR HELPER Pulse 82 12/08/2022 10:52 AM CALCINER OPERATOR HELPER Temperature 36.5 ??C (97.7 ??F) 12/08/2022 10:52 AM C Respiratory Rate 25 12/08/2022 10:52 AM CALCINER OPERATOR HELPER Oxygen Saturation 96% 12/08/2022 10:52 AM CALCINER OPERATOR HELPER Inhaled Oxygen Concentration - - Weight 85.5 kg (188 lb 6.4 oz) 12/08/2022 10:52 AM CALCINER OPERATOR HELPER Height 170.2 cm (5' 7 ) 12/08/2022 10:52 AM CALCINER OPERATOR HELPER Body Mass Index 29.51 12/08/2022 10:52 AM CALCINER OPERATOR HELPER documented in this encounter Patient Instructions * Patient Instructions* Hellen Way NP - 12/08/2022 11:30 AM CALCINER OPERATOR HELPER The rapid COVID test performed today in clinic was positive. The following are recommendations for treating the symptoms related to COVID19. What is the difference between Influenza (Flu) and COVID-19? Influenza (Flu) and COVID-19 are both contagious respiratory illnesses, but they are caused by different viruses. COVID-19 is caused by infection with a new coronavirus (called SARS-CoV-2) and flu is caused by infection with influenza viruses. There are some peralta differences between flu and COVID-19. COVID-19 seems to spread more easily than flu and causes more serious illnesses in some people. It can also take longer before people show symptoms and people can be contagious for longer. The best way to prevent infection is to avoid being exposed to the virus. Because some of the symptoms of flu and COVID-19 are similar, it may be hard to tell the difference between them based on symptoms alone, and testing may be needed to help confirm a diagnosis.While more is learned every day, there is still a lot that is unknown about COVID-19 and the virus that causes it. The [facility] will be reaching out to all patients who have a positive test for further discussion and monitoring. Continue to self isolate until at least 10 days have passed since symptom onset, your symptoms have improved, and you have been fever free without the use of fever reducing medications for at least 24 hours. You may use acetaminophen and/or ibuprofen to control pain and fever. If you have chronic liver disease, have ever had a stomach ulcer or gastrointestinal bleeding talk with your healthcare provider before using these medicines. Aspirin should never be given to anyone under 18 years of age who is ill with a viral infection or fever. It may cause severe liver or brain damage. Your appetite may be poor, so a light diet is ok. Stay well hydrated by drinking 6 to 8 glasses of fluids per day (water, soft drinks, juices, tea, or soup). Extra fluids will help loosen secretions in the nose and lungs. Vcmr-zer-rmloicb cold medicines will not shorten the length of time you???re sick, but they may be helpful for relieving the following symptoms: headache, cough, sore throat, and nasal and sinus congestion. If you take prescription medicines, ask your healthcare provider or pharmacist which blja-gka-mtmevhm medicines are safe to use. (Note: DO NOT use decongestants if you have high blood pressure.) Steps to help prevent the spread of COVID-19 if you are sick If you are sick with COVID-19 or think you might have COVID-19, follow the steps below to care for yourself and to help protect other people in your home and community. Stay home except to get medical care Most people with COVID-19 have mild illness and are able to recover at home without medical care. Do not leave your home, except to get medical care. Do not visit public areas. Take care of yourself. Get rest and stay hydrated. Take bdce-btz-hvwwvdt medicines to help you feelbetter. Stay in touch with your doctor. Call before you get medical care. Be sure to get care if you have trouble breathing, or have any other emergency warning signs, or if you think it is an emergency. Avoid using public transportation, ride-sharing, or taxis. Monitor your symptoms Symptoms of COVID-19 include fever, cough, shortness of breath or difficulty breathing, fatigue, muscle or body aches, headache, new loss of taste or smell, sore throat, congestion, runny nose, nausea, vomiting, or diarrhea. When to Seek Medical Attention If you develop emergency warning signs for COVID-19 get medical attention immediately. Emergency warning signs include*: Trouble breathing Persistent pain or pressure in the chest New confusion or inability to arouse Bluish lips or face *This list is not all inclusive. Please consult your medical provider for any other symptoms that are severe or concerning. Call 911 if you have a medical emergency: If you have a medical emergency and need to call 911, notify the nuclear reactor operator that you have or think you might have, COVID-19. If possible, put on a facemask before medical help arrives. Separate yourself from other people in your home, this is known as home isolation As much as possible, you should stay away from other people and pets in your home. You should stay in a specific ???sick room?? if possible. Use a separate bathroom, if available. If you need to be around other people or animals in or outside of the home, wear a mask For more information on sharing close living quarters with someone who is sick visit https://www.cdc .gov/coronavirus/2019-ncov/czikb-eybf-yhesdm/fnbcue-zo-bkzeu-quarters.html For more information on COVID-19 and pets visit https://www.cdc.gov/coronavirus/2019-ncov/faq.html Call ahead before visiting your doctor Many medical visits for routine care are being postponed or done by phone or telemedicine. If you have a medical appointment that cannot be postponed, call your doctor???s office, and tell them you have or may have COVID-19. This will help the office protect themselves and other patients. If You Test Positive for COVID-19 (Isolate) Everyone, regardless of vaccination status. Stay home for 5 days. If you have no symptoms or your symptoms are resolving after 5 days, you can leave your house. Continue to wear a mask around others for 5 additional days. If you have a fever, continue to stay home until your fever resolves. If You Were Exposed to Someone with COVID-19 (Quarantine) If you: Have been boosted OR Completed the primary series of Pfizer or Moderna vaccine within the last 6 months OR Completed the primary series of J&J vaccine within the last 2 months: Wear a mask around others for 10 days. Test on day 5, if possible. If you develop symptoms get a test and stay home. If you: Completed the primary series of Pfizer or Moderna vaccine over 6 months ago and are not boosted OR Completed the primary series of J&J over 2 months ago and are not boosted OR Are unvaccinated: Stay home for 5 days. After that continue to wear a mask around others for 5 additional days. If you can???t quarantine you must wear a mask for 10 days. Test on day 5 if possible. If you develop symptoms, get a test & stay home INER OPERATOR HELPER documented in this encounter Ordered Prescriptions Prescription Sig Dispense Quantity Refills Last Filled Start Date End Date albuterol HFA (PROVENTIL HFA,VENTOLIN HFA,PROAIR HFA) 90 mcg/actuation inhalerIndications :Wheezing Inhale 2 puffs every 6 (six) hours as needed for wheezing 1 each 12/08/2022 4 documented in this encounter Progress Notes * Hellen Way NP - 12/08/2022 11:30 AM CSTAssociated Order(s): Ear Cerumen Removal Post-Procedure Diagnose(s): Impacted cerumen of right ear Images from the original note were not included. Subjective/Objective Patient ID: Jolene Cedillo is a 76 y.o. female. Chief Complaint COVID-19 EVALUATION ([facility]- Stuffy nose and Cough. Onset 12/04/22, Vaccinated. OTC Tyenol (last dose last night). No known exp, No covid hx. ) Patient [facility] to [facility] for stuffy nose, right ear fullness, and cough x5 days. Her is experiencing similar symptoms. She has been taking OTC tylenol for her symptoms. She denies any known exposure to covid or flu. She denies any fever or shortness of breath. Review of Systems Constitutional: Negative for activity change, appetite change, fatigue and fever. HENT: Positive for rhinorrhea. Negative for congestion, ear discharge, ear pain, postnasal drip, sinus pressure and sore throat. Eyes: Negative for discharge. Respiratory: Positive for cough. Negative for shortness of breath. Gastrointestinal: Negative for diarrhea, nausea and vomiting. Musculoskeletal: Negative for myalgias. Skin: Negative for rash. Neurological: Negative for headaches. Hematological: Negative for adenopathy. Physical Exam Vitals reviewed. Constitutional: General: She is not in acute distress. Appearance: Normal appearance. She is well-developed. She is not ill-appearing. HENT: Head: Normocephalic. Right Ear: Tympanic membrane, ear canal and external ear normal. Left Ear: Tympanic membrane, ear canal and external ear normal. Nose: No congestion or rhinorrhea. Right Sinus: No maxillary sinus tenderness or frontal sinus tenderness. Left Sinus: No maxillary sinus tenderness or frontal sinus tenderness. Mouth/Throat: Lips: [place]. Mouth: Mucous membranes are moist. Pharynx: Oropharynx is clear. Eyes: General: Right eye: No discharge. Left eye: No discharge. Conjunctiva/sclera: Conjunctivae normal. Cardiovascular: Rate and Rhythm: Normal rate and regular rhythm. Pulmonary: Effort: Pulmonary effort is normal. No respiratory distress. Breath sounds: Normal air entry. Examination of the left-lower field reveals wheezing. Wheezing present. Abdominal: Tenderness: There is no abdominal tenderness. Musculoskeletal: General: Normal range of motion. Cervical back: Neck supple. Lymphadenopathy: Head: Right side of head: No tonsillar adenopathy. Left side of head: No tonsillar adenopathy. Cervical: No cervical adenopathy. Skin: General: Skin is warm and dry. Findings: No rash. Neurological: Mental Status: She is alert and oriented to person, place, and time. Mental status is at baseline. Psychiatric: Attention and Perception: Attention normal. Mood and Affect: Mood normal. Behavior: Behavior normal. Behavior is cooperative. Thought Content: Thought content normal. Judgment: Judgment normal. Vitals: 12/08/22 1052 BP: 154/68 Pulse: 82 Resp: 25 Temp: 36.5 ??C (97.7 ??F) TempSrc: Temporal SpO2: 96% Weight: 85.5 kg (188 lb 6.4 oz) Height: 170.2 cm (5' 7 ) Assessment/Plan Offered Paxlovid today, patient declined Inhaler as needed for wheezing Complete any medications as prescribed Attempted to flush right ear due to cerumen impaction. Patient could not tolerate procedure due to tenderness. She knows to return to clinic for ear pain or discharge. You will need to take OTC medications Mucinex for chest congestion Zyrtec for nasal drainage Flonase for sinuses Dayquil/Delysm for cough Tylenol/Motrin for fever Drink plenty of fluids to stay hydrated Get plenty of rest If your symptoms worsen or you experience shortness of breath, RTC or go to ER. If you have been prescribed any medications, take them as directed Diagnoses and all orders for this visit: COVID-19 (Primary) Wheezing - albuterol HFA (PROVENTIL HFA,VENTOLIN HFA,PROAIR HFA) 90 mcg/actuation inhaler; Inhale 2 puffs every 6 (six) hours as needed for wheezing Suspected COVID-19 virus infection - COVID-19 POC Impacted cerumen of right ear - Ear Cerumen Removal Ear Cerumen Removal Performed by: Hellen Way NP Authorized by: Hellen Way NP Verbal consent obtained: Yes Risks, alternatives, and patient questions discussed: Yes Location: R ear R ear cerumen impacted?: Yes R ear method of removal: Instrumentation, irrigation and magnification R ear instrumentation: Curette R ear magnification: Otoscope Inspection: Cerumen remains Hearing quality: Normal Patient tolerance: Patient tolerated the procedure with difficulty Procedure terminated: Procedure terminated at patient's request Patient was having tenderness and requested procedure to be terminated. Recent Results (from the past 4 hour(s)) COVID-19 POC Collection Time: 12/08/22 11:08 AM Result Value Ref Range COVID-19 Ag POC (BD Veritor) Positive (A) Presumptive Negative, Invalid Patient Education: Disposition Treatment plan including expectations, follow up, and return precautions discussed with patient/parent, verbalizes understanding. Medication dosage, use, and potential adverse reactions discussed with patient/parent. Advised to follow up with PCP if symptoms do not resolve as expected or sooner if condition worsens. Signs/symptoms warranting ER evaluation reviewed. Patient and/or guardian was given an opportunity to ask questions, questions answered. Hellen Way NP Cosigned by Phan Murray MD at 12/12/2022 9:38 AM CALCINER OPERATOR HELPER INER OPERATOR HELPER INER OPERATOR HELPER documented in this encounter Plan of Treatment Not on file documented as of this encounter Procedures Procedure Name Priority Date/Time Associated Diagnosis Comments OK REMOVAL IMPACTED CERUMEN INSTRUMENTATION UNILAT Routine 12/08/2022 11:30 AM CALCINER OPERATOR HELPER Impacted cerumen of right ear COVID-19 POC Routine 12/08/2022 11:08 AM CALCINER OPERATOR HELPER Suspected COVID-19 virus infection documented in this encounter Results * OK REMOVAL IMPACTED CERUMEN INSTRUMENTATION UNILAT (12/08/2022 11:30 AM CALCINER OPERATOR HELPER) Narrative Phan Murray MD - 12/08/2022 11:30 AM CALCINER OPERATOR HELPER Hellen Way NP ? 12/08/2022 12:26 PM Ear Cerumen Removal Performed by: Hellen Way NP Authorized by: Hellen Way NP Verbal consent obtained: Yes ?? Risks, alternatives, and patient questions discussed: Yes ?? Location: ??R ear R ear cerumen impacted?: Yes ?? R ear method of removal: ??Instrumentation, irrigation and magnification R ear instrumentation: ??Curette R ear magnification: ??Otoscope Inspection: ??Cerumen remains Hearing quality: ??Normal Patient tolerance: ??Patient tolerated the procedure with difficulty Procedure terminated: ??Procedure terminated at patient's request Patient was having tenderness and requested procedure to be terminated. Hellen Way DOUBLE REAMER OPERATOR IN CLINIC/BEDSIDE ORDERABLES Fin al Result * (ABNORMAL) COVID-19 POC (12/08/2022 11:08 AM CALCINER OPERATOR HELPER) Pathologist [facility] COVID-19 Ag POC (BD Veritor) Positive( A) Presumptive Negative, Invalid [facility] Nasal 12/08/2022 11:0 8 AM CALCINER OPERATOR HELPER Hellen Way DOUBLE REAMER OPERATOR POINT OF CARE TEST ORDERABLES Fi nal Result [facility] [address] [place] [address] documented in this encounter Visit Diagnoses Diagnosis COVID-19- Primary Wheezing Suspected COVID-19 virus infection Impacted cerumen of right ear Impacted cerumen documented in this encounter Additional Health Concerns Infection Onset Date Last Indicated Resolved Time COVID19 12/08/2022 12/08/2022 12/18/2022 3:05 AM CALCINER OPERATOR HELPER documented as of this encounter Care Teams Marketing Automation Analyst Relationship Specialty Start Date End Date Mariangel Quiñonez MD [address] [facility] [address] [address] PCP - General Family Medicine 05/16/22 Neil Ag MD PhD [address] [facility] [place] [address] Radiation Oncologist Radiation Oncology 12/17/18 [place] [id number] [facility] [address] [place] [address] Referring Physician General Surgery 12/17/18 [place] [id number] [facility] [address] [place] [id number] Medical Oncologist/Dumper Operator Medical Oncology 12/17/18 [place] [id number] [facility] [address] [place] [address] Consulting Physician Gastroenterology 01/07/20 documented as of this encounter
--- OUTSIDE RECORDS SUMMARY | 2024-11-16 12:53 | XMS_ITS | Encounter Summary ---
Author Organization [facility] Address [address] [place] [address] Care Team Providers Care Nutrition Aide Name Role Phone Neil Ag MD PhD Unavailable Ita Vazquez MD Unavailable Caron Mohan MD Unavailable Pebbles Felton MD Unavailable [phone] Mariangel Quiñonez MD Primary Care Provide r Reason for Visit * Reason Comments Medicare Wellness Encounter Details Date Type Department Care Team (Late st Contact Info) Description 10/03/2022 10:00 AM MOTOCROSS RACER Office Visit [facility] Primary Care at [address] [place] [address] Mariangel Quiñonez MD [address] [place] [address] [address] [place] [address] Medicare annual wellness visit, subsequent (Primary Dx); BMI 29.0-29.9,adult; Essential hypertension; Mixed hyperlipidemia; Recurrent pulmonary emboli (CMS/HCC) (HCC); 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); History of breast cancer; History of uterine cancer; 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 rheumatoid factor (CMS/HCC) (HCC); Need for influenza vaccination Social History Tobacco Use Types Packs/Day Years [...] on file 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 MOTOCROSS RACER Gender Identity Not on file Sexual Orientation Not on file documented as of this encounter Last Filed Vital Signs Vital Sign Reading Time Taken Comments Blood Pressure 136/78 10/03/2022 9:58 AM MOTOCROSS RACER Pulse 75 10/03/2022 9:58 AM MOTOCROSS RACER Temperature - - Respiratory Rate 20 10/03/2022 9:58 AM MOTOCROSS RACER Oxygen Saturation 96% 10/03/2022 9:58 AM MOTOCROSS RACER Inhaled Oxygen Concentration - - Weight 85.3 kg (188 lb) 10/03/2022 9:58 AM MOTOCROSS RACER Height 170.2 cm (5' 7 ) 10/03/2022 9:58 AM MOTOCROSS RACER Body Mass Index 29.44 10/03/2022 9:58 AM MOTOCROSS RACER documented in this encounter Progress Notes * Mariangel Quiñonez MD - 10/03/2022 10:00 AM CST MEDICARE SUBSEQUENT ANNUAL WELLNESS VISIT Jolene Cedillo Medicare Health Risk Assessment Basic Information In general, would you say your health is: Good Do you have an advance directive, such as a living will or durable power of rotary soil stabilizer?: Yes Do you have to strain or struggle to hear/understand conversations?: No Have you experienced any of the following problems currently or recently? Eating: No Grooming: No Bathing: No Walking: No Using the toilet: No Memory problems: No Difficulty speaking: No Pain: No Sexual Health: No Fatigue: No Have you experienced any of the following problems currently or recently? Laundry and/or housekeeping: No Handling Money: No Shopping: No Food preparation: No Transportation: No Taking and/or getting your own medications: No Do you use prescription drugs that are not prescribed for you?: No See scanned HRA documents HPI 76F w/ hx of htn, hld, chronic diastolic heart failure, recurrent PE, t2DM, hiatal hernia, GERD, breast cancer s/p lumpectomy and radiation, uterine cancer s/p hysterectomy, iron deficiency anemia, RA who is coming in for a wellness visit. For her PE she was on eliquis and methotrexate and the combination caused blood in the stool. That is when it was decided to to stop it. She follows with ob for her pap smears. Has appt in February She follows with specialist for her mammograms. Problem List, Past Medical and Surgical History: Patient Active Problem List Diagnosis Mixed hyperlipidemia Essential hypertension 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 rheumatoid factor (CMS/HCC) (HCC) Malignant neoplasm of upper-inner quadrant of left breast in female, estrogen receptor positive (CMS/HCC) (HCC) Chronic diastolic heart failure (HCC) Iron deficiency anemia due to chronic blood loss Hiatal hernia High risk of cardiac event Recurrent pulmonary emboli (CMS/HCC) (HCC) Chronic GERD History of breast cancer History of uterine cancer Hiatal hernia 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) Acute upper GI bleed Iron deficiency anemia Medicare annual wellness visit, subsequent Past Medical History: Diagnosis Date Anemia GERD (gastroesophageal reflux disease) HX OTHER MEDICAL B/L arthroscopic knee surg HX OTHER MEDICAL RA HX OTHER MEDICAL R knee replacement HX OTHER MEDICAL blood clot- right leg Hyperlipidemia Hyperlipidemia Hypertension Hypertension Screening mammogram, encounter for 1946 Uterine cancer (CMS/HCC) (HCC) 04/2018 Past Surgical History: Procedure Laterality Date BREAST LUMPECTOMY Left 2019 CATARACT EXTRACTION Cataract extraction COLONOSCOPY 12/2019 HYSTERECTOMY 06/2018 REPLACEMENT TOTAL KNEE BILATERAL Family History: Family History Problem Relation Age of Onset Heart attack Father Myocardial infarction; Diabetes Father Diabetes mellitus; Heart disease Father Heart disease; Diabetes type II Other Family history of Diabetes -Type 2; Diabetes Mother Diabetes mellitus; Other Father's Sister mastectomy. ??CA; Social History: Social History Tobacco Use Smoking status: Never Smokeless tobacco: Never Substance and Sexual Activity Drug use: No Sexual activity: None Alcohol Use: Not on file denies alcohol use, denies tobacco use, and denies illicit drug use Allergies: Allergies Allergen Reactions Atorvastatin Muscle pain Codeine Nausea only Reaction: Nausea, Medications: Current Outpatient Medications: carvediloL (COREG) 6.25 mg tablet, TAKE ONE TABLET BY MOUTH TWICE DAILY WITH MEALS, Disp: 180 tablet, Rfl: 1 cholecalciferol (VITAMIN D-3) 400 unit capsule, 1,000 Units , Disp: , Rfl: famotidine (PEPCID) 40 mg tablet, Take 1 tablet (40 mg total) by mouth daily, Disp: 90 tablet, Rfl:3 letrozole (FEMARA) 2.5 mg tablet, Take 2.5 mg by mouth daily, Disp: , Rfl: losartan (COZAAR) 100 mg tablet, TAKE 1 TABLET BY MOUTH EVERY DAY, Disp: 90 tablet, Rfl: 3 methotrexate 2.5 mg tablet, Take 2.5 mg by mouth every 7 days Takes 6 tablets every Sunday, Disp: , Rfl: pantoprazole DR (PROTONIX) 40 mg EC tablet, Take 1 tablet (40 mg total) by mouth daily, Disp: 30 tablet, Rfl: 11 rosuvastatin (CRESTOR) 5 mg tablet, Take 1 tablet (5 mg total) by mouth daily, Disp: 30 tablet, Rfl: 11 tobramycin-dexAMETHasone (TOBRADEX) ophthalmic solution, SHAKE LIQUID AND INSTILL 1 DROP IN LEFT EYE FOUR TIMES DAILY, Disp: , Rfl: Depression Screen: PHQ Screening PHQ-2 Total Score (If total score is 3 or more points, staff should administer the PHQ-9): 0 Vitals: Vitals BP 136/78 (BP Location: Right arm, Patient Position: Sitting) Pulse 75 Resp 20 Ht 170.2 cm (5' 7 ) Wt 85.3 kg (188 lb) SpO2 96% BMI 29.44 kg/m?? Body mass index is 29.44 kg/m??. ROS: Review of Systems Constitutional: Negative for appetite change, chills, fatigue, fever and unexpected weight change. HENT: Negative for hearing loss, rhinorrhea, sore throat and trouble swallowing. No odynophagia, dysphagia Eyes: Negative for visual disturbance. Respiratory: Negative for cough, chest tightness, shortness of breath and wheezing. Cardiovascular: Negative for chest pain, palpitations and leg swelling. Gastrointestinal: Negative for abdominal pain, blood in stool, constipation, diarrhea, nausea and vomiting. Endocrine: Negative for polydipsia and polyuria. Genitourinary: Negative for difficulty urinating, dysuria, frequency, hematuria and urgency. Musculoskeletal: Negative for arthralgias, back pain, gait problem, joint swelling, myalgias and neck stiffness. Skin: Negative for rash. Neurological: Negative for dizziness, syncope, weakness, light-headedness and headaches. Hematological: Negative for adenopathy. Does not bruise/bleed easily. Psychiatric/Behavioral: Negative for agitation and sleep disturbance. The patient is not nervous/anxious. Exam: Physical Exam Constitutional: General: She is not in acute distress. HENT: Head: Normocephalic and atraumatic. Right Ear: External ear normal. Left Ear: External ear normal. Mouth/Throat: Pharynx: No oropharyngeal exudate (TMs normal, nose and throat clear). Eyes: Pupils: Pupils are equal, round, and reactive to light. Neck: Thyroid: No thyromegaly. Comments: No carotid bruits Cardiovascular: Rate and Rhythm: Normal rate and regular rhythm. Heart sounds: Normal heart sounds. No murmur (no edema) heard. No friction rub. No gallop. Pulmonary: Effort: Pulmonary effort is normal. Breath sounds: Normal breath sounds. No wheezing or rales. Chest: Chest wall: No tenderness. Abdominal: General: Bowel sounds are normal. Palpations: Abdomen is soft. There is no mass. Tenderness: There is no abdominal tenderness. There is no guarding. Comments: Tympanic, soft, NT Musculoskeletal: General: No deformity. Normal range of motion. Cervical back: Neck supple. Feet: Right Foot: Monofilament exam: normal. Left Foot: Monofilament exam: normal. Lymphadenopathy: Cervical: No cervical adenopathy (no bruits). Skin: General: Skin is warm. Findings: No rash. Neurological: Mental Status: She is alert and oriented to person, place, and time. Cranial Nerves: No cranial nerve deficit. Deep Tendon Reflexes: Reflexes normal. Psychiatric: Judgment: Judgment normal. Care Team Providers: Patient Care Team: Mariangel Quiñonez MD as PCP - General (Family Medicine) [facility] PhD as Radiation Oncologist (Radiation Oncology) Ita Vazquez MD as Referring Physician (General Surgery) Caron Mohan MD as Medical Oncologist/Children[employer]ries Director (Medical Oncology) Pebbles Felton MD as Consulting Physician (Gastroenterology) Primary Pharmacy/DME suppliers: [facility] #[id number] - [place] - [address] [facility] [address] [place] [address] Detection of Cognitive Impairment: The patient does not have cognitive impairment based on direct observation, discussion with patientor family, or review of medical records. Health Maintenance: Health Maintenance Topics with due status: Overdue Topic Date Due Zoster Vaccines Never done Pneumococcal vaccine 65+ 12/17/2019 Covid-19 Vaccine 11/20/2021 Urine Microalbumin 05/26/2022 Lipid Panel 06/28/2022 Influenza Vaccine 07/27/2022 Health Maintenance Topics with due status: Due On Topic Date Due Well Visit 65+ 09/28/2022 Hemoglobin A1C 09/28/2022 Health Maintenance Topics with due status: Not Due Topic Last Completion Date DTaP/Tdap/Td Vaccine 09/13/2018 Colon Cancer Screening-Colonoscopy 01/07/2020 Osteoporosis Screening-Bone Density Scan 06/28/2021 Dilated Eye Exam 03/08/2022 Fall Risk Assessment 10/03/2022 Depression Screening-PHQ 10/03/2022 Foot Exam 10/03/2022 Health Maintenance Topics with due status: Completed Topic Last Completion Date Hepatitis C Screening 05/11/2017 Counseling and Referral of Preventative Services: Lifestyle Recommendations Increase Physical Activity, Reduce Weight, and Improve Diet Advanced Directive Durable Power of Open Cut Examiner: Yes Living Will: Yes Assessment and Plan: Diagnoses and all orders for this visit: Medicare annual wellness visit, subsequent (Primary) Assessment & Plan: Ordered CBC, cmp, lipid, hgb a1c, TSH, Flu given today Colonoscopy:up to date Pap smear:follows with ob Mammo:follows with Dr. Mohan F/u in 1 year for annual BMI 29.0-29.9,adult Essential hypertension Assessment & Plan: Bp in the office today BP Readings from Last 1 Encounters: 10/03/22 136/78 Continue current regimen of carvedilol and losartan Recommend DASH diet, heart-healthy lifestyle, exercise. Discussed the risks of hypertension. F/u in1 year Mixed hyperlipidemia Assessment & Plan: Stable / clinically quiescent. Will continue to monitor. Continue statin Recurrent pulmonary emboli (CMS/[facility]) ([facility]) Assessment & Plan: eliquis was stopped because of hx of GI bleeding Type 2 diabetes mellitus with hyperlipidemia ([facility]) Assessment & Plan: The patient was counseled [...] ur ratio ordered F/u in 6 months History of breast cancer Assessment & Plan: Still follows with Dr. Mohan Continue with letrozole History of uterine cancer Assessment & Plan: She follows with ob 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 rheumatoid factor ([facility]) ([facility]) Assessment & Plan: Stable Continue with rheumatology Continue with methotrexate Patient here for annual Medicare wellness visit and for review of complete medical problem list. All the elements of the plan were completed as outlined by CMS. A copy of the prevention plan was given to the patient. I reviewed Medicare Wellness Questionnaire (other physicians involved in care, depression screen, advanced directives), cognitive/memory, and functional assessment. I reviewed and updated the complete problem list, medication list, family history, and immunization records with the patient. I provided preventive counseling and early detection interventions to the patient through health maintenance update and summary of today's office visit. CROSS RACER documented in this encounter Miscellaneous Notes * Assessment & Plan Note - Mariangel Quiñonez MD - 10/03/2022 10:20 AM CSTAssociated Problem(s): 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 rheumatoid factor ([facility]) ([facility]) Stable Continue with rheumatology Continue with methotrexate CROSS RACER * Assessment & Plan Note - Mariangel Quiñonez MD - 10/03/2022 10:19 AM CSTAssociated Problem(s): History of uterine cancer She follows with ob CROSS RACER * Assessment & Plan Note - Mariangel Quiñonez MD - 10/03/2022 10:18 AM CSTAssociated Problem(s): History of breast cancer Still follows with Dr. Mohan Continue with letrozole CROSS RACER * Assessment & Plan Note - Mariangel Quiñonez MD - 10/03/2022 10:17 AM CSTAssociated Problem(s): Recurrent pulmonary emboli (CMS/HCC) (HCC) eliquis was stopped because of hx of GI bleeding CROSS RACER * Addendum Note - Sofiya Watts MA - 10/03/2022 10:00 AM CSTAddended by: SOFIYA WATTS on: 10/03/2022 10:42 AM Modules accepted: Orders CROSS RACER * Assessment & Plan Note - Mariangel Quiñonez MD - 10/02/2022 9:57 PM MOTOCROSS RACER Associated Problem(s): Encounter for wellness examination Ordered CBC, cmp, lipid, hgb a1c, TSH, Flu given today Colonoscopy:up to date Pap smear:follows with ob Mammo:follows with Dr. Mohan F/u in 1 year for annual CROSS RACER CROSS RACER * Assessment & Plan Note - Mariangel Quiñonez MD - 10/02/2022 9:56 PM MOTOCROSS RACER Associated Problem(s): Type 2 diabetes mellitus with [...] ur ratio ordered F/u in 6 months CROSS RACER * Assessment & Plan Note - Mariangel Quiñonez MD - 10/02/2022 9:55 PM MOTOCROSS RACER Associated Problem(s): Chronic diastolic heart failure (HCC) stable CROSS RACER * Assessment & Plan Note - Mariangel Quiñonez MD - 10/02/2022 9:55 PM MOTOCROSS RACER Associated Problem(s): Mixed hyperlipidemia Stable / clinically quiescent. Will continue to monitor. Continue statin CROSS RACER * Assessment & Plan Note - Mariangel Quiñonez MD - 10/02/2022 9:54 PM MOTOCROSS RACER Associated Problem(s): Essential hypertension Bp in the office today BP Readings from Last 1 Encounters: 10/03/22 136/78 Continue current regimen of carvedilol and losartan Recommend DASH diet, heart-healthy lifestyle, exercise. Discussed the risks of hypertension. F/u in1 year CROSS RACER CROSS RACER documented in this encounter Plan of Treatment Not on file documented as of this encounter Visit Diagnoses Diagnosis Medicare annual wellness visit, subsequent- Primary BMI 29.0-29.9,adult Essential hypertension Unspecified essential hypertension Mixed hyperlipidemia Recurrent pulmonary emboli (CMS/HCC) (HCC) 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) History of breast cancer Personal history of malignant neoplasm of breast History of uterine cancer Personal history of malignant neoplasm of other parts of uterus 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 rheumatoid factor (CMS/HCC) (HCC) Need for influenza vaccination Need for prophylactic vaccination and inoculation against influenza documented in this encounter Orders Immunization/Injection Count Last Ordered Date First Ordered Date FLU VACCINE HIGH DOSE QUAD P F 65Y+ IM - FLUZONE HIGH DOS 1 10/03/2022 documented in this encounter Care Teams Nutrition Aide Relationship Specialty Start Date End Date Mariangel Quiñonez MD [address] [address] PCP - General Family Medicine 05/16/22 Neil Ag MD PhD [address] [place] [address] Radiation Oncologist Radiation Oncology 12/17/18 [place] [id number] [facility] [address] [place], [place] [id number] Referring Physician General Surgery 12/17/18 [place] [id number] [facility] [address] [place], [place] [id number] Medical Oncologist/Children[employer]S Ministries Director Medical Oncology 12/17/18 [place] [address] [facility] [address] [place] [address] Consulting Physician Gastroenterology 01/07/20 documented as of this encounter
--- OUTSIDE RECORDS SUMMARY | 2024-11-16 12:53 | XMS_ITS | Encounter Summary ---
Author Organization [facility] Address [address] [place] [address] Care Team Providers Care Bus Driver School Name Role Phone Neil Ag MD PhD Unavailable Iat Vazquez MD Unavailable Caron Mohan MD Unavailable Pebbles Felton MD Unavailable [phone] Mariangel Quiñonez MD Primary Care Provide r Reason for Visit * Reason Onset Date Comments Medical Question/Miscellaneous 11/27/2023 Encounter Details Date Type Department Care Team (Late st Contact Info) Description 11/27/2023 Telephone [facility] Primary Care at [address] [place] [address] Mariangel Quiñonez MD [address] [place] [address] [address] [place] [address] Medical Question/Miscellaneous Social History Tobacco Use Types [...] on file 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 PRINCIPAL TECHNICAL WRITER Gender Identity Not on file Sexual Orientation Not on file documented as of this encounter Miscellaneous Notes * Telephone Encounter - Paula Downing MA - 11/28/2023 1:50 PM PRINCIPAL TECHNICAL WRITER Spoke with patient to inform her that she needed an appointment to get referred to the pain management and scheduled her an appointment CIPAL TECHNICAL WRITER * Telephone Encounter - Mariangel Quiñonez MD - 11/28/2023 12:39 PM PRINCIPAL TECHNICAL WRITER I have not seen her for hip pain. She would need to be seen and evaluated CIPAL TECHNICAL WRITER * Telephone Encounter - Winnie Vences - 11/27/2023 3:46 PM CST Call Back Caller???s Concern: [place]. Patient states there are three doctors there and will be assigned one when she goes. Does message need to be routed? Yes-Action Needed CIPAL TECHNICAL WRITER * Telephone Encounter - Anitra Pinto - 11/27/2023 3:44 PM CST LMOM--need to know the name of who the pt wants to see, and then we will have to send this message to Dr Roper to see if she wants to see the pt first. CIPAL TECHNICAL WRITER * Telephone Encounter - Briana Diggs - 11/27/2023 8:48 AM CST Medical Question/Miscellaneous Caller???s Concern: Patient called and needs ambulatory referral to pain management for left hip pain faxed at [phone] so she can schedule appt. Does message need to be routed? Yes-Action Needed CIPAL TECHNICAL WRITER documented in this encounter Plan of Treatment Not on file documented as of this encounter Visit Diagnoses Not on filedocumented in this encounter Care Teams Bus Driver School Relationship Specialty Start Date End Date Mariangel Quiñonez MD [address] [address] PCP - General Family Medicine 05/16/22 Neil Ag MD PhD [address] [place] [address] Radiation Oncologist Radiation Oncology 12/17/18 [place] [address] [facility] [facility] [address] [place] [address] Referring Physician General Surgery 12/17/18 [place] [address] [address] [facility] [address] [place] [address] Medical Oncologist/Social Service Assistant Medical Oncology 12/17/18 [place] [id number] [facility] [address] [place] [place] [address] Consulting Physician Gastroenterology 01/07/20 documented as of this encounter
--- OUTSIDE RECORDS SUMMARY | 2024-11-16 12:53 | XMS_ITS | Encounter Summary ---
Author Organization [facility] Healthcare Address [address] [place] [address] Care Team Providers Care Bartenders Name Role Phone Neil Ag MD PhD Unavailable Ita Vazquez MD Unavailable Caron Mohan MD Unavailable Pebbles Felton MD Unavailable [phone] Mariangel Quiñonez MD Primary Care Provide r Reason for Visit * Reason Onset Date Comments Referral Request 12/12/2023 Encounter Details Date Type Department Care Team (Late st Contact Info) Description 12/12/2023 Telephone [facility] Primary Care at [address] [place] [address] Mariangel Quiñonez MD [address] [place] [address] [address] [place] [address] Referral Request Social History Tobacco Use Types Packs/Day [...] on file 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 AIR CONDITIONING SPECIALIST Gender Identity Not on file Sexual Orientation Not on file documented as of this encounter Miscellaneous Notes * Telephone Encounter - Kelly Thorpe - 12/12/2023 4:33 PM CST New Referral [facility] [phone] CONDITIONING SPECIALIST * Telephone Encounter - Mariangel Quiñonez MD - 12/12/2023 4:19 PM AIR CONDITIONING SPECIALIST Can send new referral to different location CONDITIONING SPECIALIST * Telephone Encounter - Rayna Guzman MA - 12/12/2023 3:[address] Quiñonez, please review message is referral okay to place? CONDITIONING SPECIALIST * Telephone Encounter - Yosef Kaur - 12/12/2023 2:47 PM CST Referral Provider Name (if patient is seeing a nurse practitioner or physician assistant floor covering printer, list the TOOL AND DIE TECHNICIAN/PA, but also their collaborating doctor): [facility] Specialty: Physical Therapy Address: [address] [place] [address], Zip: [place] [address] Diagnosis Code/Symptom/Reason Patient is being seen: M 25. 552 Date of Appointment: Not set NPI#: not provided Tax ID#: Not provided Is insurance in chart up to date? Yes Additional Comments: Patient requesting [facility] for [facility]. [facility] Requesting call back when insurance determination received Does message need to be routed? Yes-Action Needed CONDITIONING SPECIALIST documented in this encounter Plan of Treatment Not on file documented as of this encounter Visit Diagnoses Not on filedocumented in this encounter Care Teams Bartenders Relationship Specialty Start Date End Date Mariangel Quiñonez MD [address] [address] PCP - General Family Medicine 05/16/22 Neil Ag MD PhD [address] [place] [address] Radiation Oncologist Radiation Oncology 12/17/18 [place] [address] [facility] [address] [place], [place] [id number] Referring Physician General Surgery 12/17/18 [place] [address] [facility] [address] [place], [place] [id number] Medical Oncologist/[place] Medical Oncology 12/17/18 [place] [address] [facility] [address] [place], [place] [id number] Consulting Physician Gastroenterology 01/07/20 documented as of this encounter
--- OUTSIDE RECORDS SUMMARY | 2024-11-16 12:53 | XMS_ITS | Encounter Summary ---
Author Organization [facility] Address [address] [place] [address] Care Team Providers Care Special Certificate Dictator Name Role Phone Neil Ag MD PhD Unavailable Ita Vazquez MD Unavailable Caron Mohan MD Unavailable Pebbles Felton MD Unavailable [phone] Mariangel Quiñonez MD Primary Care Provide r Encounter Details Date Type Department Care Team (Late st Contact Info) Description 03/27/[address] 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 Gender Identity Not on file Sexual Orientation Not on file documented as of this encounter Plan of Treatment Not on file documented as of this encounter Procedures Procedure Name Priority Date/Time Associated Diagnosis Comments CBC WITH AUTO DIFFERENTIAL Routine 03/27/2023 9:08 AM CDT ALBUMIN CREATININE RATIO, URINE Routine 03/27/2023 9:08 AM CDT HEMOGLOBIN A1C Routine 03/27/2023 9:08 AM CDT LIPID PANEL Routine 03/27/2023 9:08 AM CDT COMPREHENSIVE METABOLIC PANEL Routine 03/27/2023 9:08 AM CDT documented in this encounter Results * (ABNORMAL) Albumin Creatinine Ratio, Urine (03/27/2023 9:08 AM CDT) Creatinine, ur 87 20 - 275 mg/dL [facility] Microalbumin, ur 2.7 See Note: mg/dL [facility] Comment: Reference Range: Reference Range Not established Microalbumin/creat ratio 31(H) <30 mcg/mg creat [facility] Comment: [...] patient to be within a diagnostic category. 03/27/2023 9:08 AM CDT 03/27/2023 9:11 AM CDT Narrative [facility] - 03/28/2023 11:14 AM CDT FASTING:YES FASTING: YES us Mariangel Quiñonez MD LAB URINE ORDERABLES Final Result [facility] [id number] [id number] * (ABNORMAL) CBC with auto differential (03/27/2023 9:08 AM CDT) WBC 6.0 3.8 - 10.8 Thousand/u L [facility] RBC, POC 5.11(H) 3.80 - 5.10 Million/uL [facility] Hgb 11.0(L) 11.7 - 15.5 g/dL [facility] Hct 38.3 35.0 - 45.0 % [facility] MCV 75.0(L) 80.0 - 100.0 fL [facility] MCH 21.5(L) 27.0 - 33.0 pg [facility] MCHC 28.7(L) 32.0 - 36.0 g/dL [facility] Rdw 18.9(H) 11.0 - 15.0 % [facility] Platelets 278 140 - 400 Thousand/u L [facility] MPV 9.9 7.5 - 12.5 fL [facility] Neutrophils, abs 4,644 1,500 - 7,800 cells/uL [facility] Lymphocytes, abs 684(L) 850 - 3,900 cells/uL [facility] Monocyte abs 444 200 - 950 cells/uL [facility] Eosinophils, abs 180 15 - 500 cells/uL [facility] Basophils, abs 48 0 - 200 cells/uL [facility] Neutrophils 77.4 % [facility] Lymphocyte pct 11.4 % [facility] Monocytes 7.4 % [facility] Eosinophils 3.0 % [facility] Basophils 0.8 % [facility] 03/27/2023 9:08 AM CDT 03/27/2023 9:11 AM CDT Narrative [facility] - 03/28/2023 11:14 AM CDT FASTING:YES FASTING: YES us Mariangel Quiñonez MD LAB BLOOD ORDERABLES Final Result [facility] [id number] [id number] * (ABNORMAL) Comprehensive metabolic panel (03/27/2023 9:08 AM CDT) Pathologist [facility] Glucose 140(H) 65 - 99 mg/dL [facility] Comment: ? Fasting reference interval For someone without known diabetes, a glucose value >125 mg/dL indicates that they may have diabetes and this should be confirmed with a follow-up test. BUN 18 7 - 25 mg/dL [facility] Creatinine 0.91 0.60 - 1.00 mg/dL [facility] eGFR 65 > OR = 60 mL/min/1. 73m2 [facility] Comment: The eGFR is based on the CKD-EPI 2020 equation. To calculate the new eGFR from a previous Creatinine or Cystatin C result, go to https://www.kidney.org/professionals/ kdoqi/gfr%5Fcalculator BUN/creat ratio NOT APPLICABLE 6 - 22 (calc) [facility] Sodium 139 135 - 146 mmol/L [facility] Potassium, pl 4.4 3.5 - 5.3 mmol/L [facility] Chloride 102 98 - 110 mmol/L [facility] CO2 29 20 - 32 mmol/L [facility] Calcium 9.2 8.6 - 10.4 mg/dL [facility] Protein, sr 6.8 6.1 - 8.1 g/dL [facility] Albumin 4.2 3.6 - 5.1 g/dL [facility] GLOBULIN 2.6 1.9 - 3.7 g/dL (calc) [facility] Alb/glob ratio 1.6 1.0 - 2.5 (calc) [facility] Bilirubin, total 0.5 0.2 - 1.2 mg/dL [facility] Alk phos 68 37 - 153 U/L [facility] AST 15 10 - 35 U/L [facility] ALT (SGPT) 11 6 - 29 U/L [facility] 03/27/2023 9:08 AM CDT 03/27/2023 9:11 AM CDT Narrative [facility] - 03/28/2023 11:14 AM CDT FASTING:YES FASTING: YES us Mariangel Quiñonez MD LAB BLOOD ORDERABLES Final Result [facility] [address] [place] [address] * (ABNORMAL) Lipid panel (03/27/2023 9:08 AM CDT) Pathologist [facility] Cholesterol 233(H) <200 mg/dL [facility] HDL 65 > OR = 50 mg/dL [facility] Triglycerides 115 <150 mg/dL [facility] LDL 145(H) mg/dL (calc) [facility] Comment: Reference range: <100 Desirable range <100 mg/dL for primary prevention; ?? <70 mg/dL for patients with CHD or diabetic patients with > or = 2 CHD risk factors. LDL-C is now calculated using the Harry-Cecilia calculation, which is a validated novel method providing better accuracy than the Friedewald equation in the estimation of LDL-C. Harry SS et al. RANDALL. 2013;310(19): 4250-5978 (http://education.Gridstore.MomentFeed/faq/JVH889) Chol/HDL ratio 3.6 <5.0 (calc) [facility] Non-HDL, (LDL+VLDL) 168(H) <130 mg/dL (calc) [facility] Comment: For patients with diabetes plus 1 major ASCVD risk factor, treating to a non-HDL-C goal of <100 mg/dL (LDL-C of <70 mg/dL) is considered a therapeutic option. 03/27/2023 9:08 AM CDT 03/27/2023 9:11 AM CDT Narrative [facility] - 03/28/2023 11:14 AM CDT FASTING:YES FASTING: YES Mariangel Quiñonez MD LAB BLOOD ORDERABLES Final Result [email or web address] [address] [place] [address] * (ABNORMAL) Hemoglobin A1c (03/27/2023 9:08 AM CDT) Hgb A1C 6.2(H) <5.7 % of total Hgb [facility] Comment: For someone without known diabetes, a hemoglobin A1c value between 5.7% and 6.4% is consistent with prediabetes and should be confirmed with a follow-up test. For someone with known diabetes, a value <7% indicates that their diabetes is well controlled. A1c targets should be individualized based on duration of diabetes, age, comorbid conditions, and other considerations. This assay result is consistent with an increased risk of diabetes. Currently, no consensus exists regarding use of hemoglobin A1c for diagnosis of diabetes for children. 03/27/2023 9:08 AM CDT 03/27/2023 9:11 AM CDT Narrative [facility] - 03/28/2023 11:14 AM CDT FASTING:YES FASTING: YES Mariangel Quiñonez MD LAB BLOOD ORDERABLES Final Result [facility] [address] [place] [address] documented in this encounter Visit Diagnoses Not on filedocumented in this encounter Care Teams Special Certificate Dictator Relationship Specialty Start Date End Date Mariangel Quiñonez MD [address] [place] [address] PCP - General Family Medicine 05/16/22 Neil Ag MD PhD [address] [place] [address] Radiation Oncologist Radiation Oncology 12/17/18 [place] [address] [facility] [address] [place], [place] [id number] Referring Physician General Surgery 12/17/18 [place] [address] [address] Medical Oncologist/Business Strategy Manager Medical Oncology 12/17/18 [place] [address] [facility] [address] [place] [address] Consulting Physician Gastroenterology 01/07/20 documented as of this encounter
--- OUTSIDE RECORDS SUMMARY | 2024-11-16 12:53 | XMS_ITS | Encounter Summary ---
Author Organization [facility] Address [address] [place] [address] Care Team Providers Care Passenger Car Upholsterer Apprentice Name Role Phone Neil Ag MD PhD Unavailable [phone] Ita Vazquez MD Unavailable Caron Mohan MD Unavailable Pebbles Felton MD Unavailable [phone] Mariangel Quiñonez MD Primary Care Provide r Reason for Visit * Reason Onset Date Comments Med Refill 12/06/2023 Encounter Details Date Type Department Care Team (Late st Contact Info) Description 12/06/2023 Telephone [facility] Primary Care at [address] [place] [address] Mariangel Quiñonez MD [address] [place] [address] [address] [place] [address] Med Refill Social History Tobacco Use Types Packs/Day Years [...] on file 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 It should be one a day. My apologies. I fixed the script UCTION GRIP * Telephone Encounter - Sandra Hernandez MA - 12/06/2023 3:20 PM CST Medication Question/Clarification Medication Name(s): Losartan What is the question or clarification needed? Patient is stating that she was taking 100 mg of losartan once per day however, she was told her dosage was going to go down to 25 mg once per day. The question is her new script says 25 mg but take 4 pills per day. What does she do and what does she take If needed, Pharmacy(s) medication(s) should be sent to: [facility] on file Additional Comments: Please advise the pharmacist is questioning the new prescription as well. Please advise and thank you so much. Does message need to be routed? Yes-Action Needed UCTION GRIP documented in this encounter Plan of Treatment Not on file documented as of this encounter Visit Diagnoses Not on filedocumented in this encounter Care Teams Passenger Car Upholsterer Apprentice Relationship Specialty Start Date End Date Mariangel Quiñonez MD [address] [address] PCP - General Family Medicine 05/16/22 Neil Ag MD PhD [address] [place] [address] Radiation Oncologist Radiation Oncology 12/17/18 [place] [address] [facility] [address] [place], [place] [id number] Referring Physician General Surgery 12/17/18 [place] [address] [facility] [address] [place], [place] [id number] Medical Oncologist/Psychologist Engineering Medical Oncology 12/17/18 [place] [address] [facility] [address] [place] [address] Consulting Physician Gastroenterology 01/07/20 documented as of this encounter
--- OUTSIDE RECORDS SUMMARY | 2024-11-16 12:53 | XMS_ITS | Encounter Summary ---
Author Organization [facility] Healthcare Address [address] [place] [address] Care Team Providers Care Printed Forms Proofreader Name Role Phone Neil Ag MD PhD Unavailable Ita Vazquez MD Unavailable Caron Mohan MD Unavailable Pebbles Felton MD Unavailable [phone] Mariangel Arteaga MD Primary Care Provide r Reason for Visit * Reason Comments Preventative Care Hip Pain She is here today fo r a yearly check up and she has been having some pain in her left hip and would like to get a referral to pain management Encounter Details Date Type Department Care Team (Late st Contact Info) Description 12/06/2023 11:30 AM AIR SUPPORT 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 Office Visit [facility] Primary Care at [address] [place] [address] Mariangel Arteaga MD [address] [place] [address] [address] [place] [address] Encounter for wellness examination (Primary Dx); Chronic diastolic heart failure (HCC); Essential hypertension; Mixed hyperlipidemia; Recurrent pulmonary emboli (CMS/HCC) (HCC); 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); History of breast cancer; History of uterine cancer; 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 rheumatoid factor (CMS/HCC) (HCC); BMI 28.0-28.9,adult; Left hip pain; Iron deficiency anemia secondary to inadequate dietary [...] file 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19 12/06/2023 11:18 AM AIR SUPPORT 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 documented in this encounter Patient Instructions * Patient Instructions* Mariangel Arteaga MD - 12/06/2023 11:30 AM AIR SUPPORT 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 My medical field representative and I are thankful you have trusted [...] you were not feeling your best! -Dr. Arteaga SUPPORT 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 documented in this encounter Ordered Prescriptions Prescription Sig Dispense Quantity Refills Last Filled Start Date End Date losartan (COZAAR) 25 mg tablet Take 1 tablet (25 mg total) by mouth daily 90 tablet 1 12/06/2023 cyclobenzaprine (FLEXERIL) 5 mg tablet Take 1 tablet (5 mg total) by mouth 3 (three) times a day as needed for muscle spasms 20 tablet 12/06/2023 4 losartan (COZAAR) 25 mg tablet Take 4 tablets (100 mg total) by mouth daily 360 tablet 1 12/06/2023 4 documented in this encounter Progress Notes * Mariangel Arteaga MD - 12/06/2023 11:30 AM CST Images from the original note were not included. Subjective/Objective Patient ID: Jolene Cedillo is a 77 y.o. female. Chief Complaint Preventative Care and Hip Pain (She is here today for a yearly check up and she has been having some pain in her left hip and would like to get a referral to pain management) HPI 77F w/ hx of htn, hld, chronic diastolic heart failure, recurrent PE, t2DM, hiatal hernia, GERD, breast cancer s/p lumpectomy and radiation, uterine cancer s/p hysterectomy, iron deficiency anemia, RA who is coming in for a wellness visit. She mentioned some left hip pain. Non radiating. No associated trauma or numbness or tingling. Standing makes it worse and going up and down the stairs. Sitting makes it better. Tylenol helps some. Past Medical History: Diagnosis Date Anemia GERD (gastroesophageal reflux disease) HX OTHER MEDICAL B/L arthroscopic knee surg HX OTHER MEDICAL RA HX OTHER MEDICAL R knee replacement HX OTHER MEDICAL blood clot- right leg Hyperlipidemia Hyperlipidemia Hypertension Hypertension Screening mammogram, encounter for 1946 Uterine cancer (CMS/HCC) ([facility]) 04/2018 Allergies Allergen Reactions Atorvastatin Muscle pain Codeine Nausea only Reaction: Nausea, Past Surgical History: Procedure Laterality Date BREAST LUMPECTOMY Left 2019 CATARACT EXTRACTION Cataract extraction COLONOSCOPY 12/2019 HYSTERECTOMY 06/2018 REPLACEMENT TOTAL KNEE BILATERAL Family History Problem Relation Age of Onset Heart attack Father Myocardial infarction; Diabetes Father Diabetes mellitus; Heart disease Father Heart disease; Diabetes type II Other Family history of Diabetes -Type 2; Diabetes Mother Diabetes mellitus; Other Father's Sister mastectomy. ??CA; Social History Tobacco Use Smoking status: Never Smokeless tobacco: Never Substance and Sexual Activity Drug use: No Sexual activity: Yes Partners: Male Alcohol Use: Not At Risk (12/06/2023) AUDIT-C Frequency of Alcohol Consumption: Never Average Number of Drinks: Patient does not drink Frequency of Binge Drinking: Never Review of Systems Vitals: 12/06/23 1118 BP: 132/80 BP Location: Left arm Patient Position: Sitting Pulse: 82 SpO2: 96% Weight: 81.6 kg (180 lb) Height: 170.2 cm (5' 7 ) No visits with results within 1 Month(s) from this visit. Latest known visit with results is: Orders Only on 03/27/2023 Component Date Value Hgb A1C 03/27/2023 6.2 (H) Cholesterol 03/27/2023 233 (H) HDL 03/27/2023 65 Triglycerides 03/27/2023 115 LDL 03/27/2023 145 (H) Chol/HDL ratio 03/27/2023 3.6 Non-HDL, (LDL+VLDL) 03/27/2023 168 (H) Glucose 03/27/2023 140 (H) BUN 03/27/2023 18 Creatinine 03/27/2023 0.91 eGFR 03/27/2023 65 BUN/creat ratio 03/27/2023 NOT APPLICABLE Sodium 03/27/2023 139 Potassium, pl 03/27/2023 4.4 Chloride 03/27/2023 102 CO2 03/27/2023 29 Calcium 03/27/2023 9.2 Protein, sr 03/27/2023 6.8 Albumin 03/27/2023 4.2 GLOBULIN 03/27/2023 2.6 Alb/glob ratio 03/27/2023 1.6 Bilirubin, total 03/27/2023 0.5 Alk phos 03/27/2023 68 AST 03/27/2023 15 ALT (SGPT) 03/27/2023 11 WBC 03/27/2023 6.0 RBC, POC 03/27/2023 5.11 (H) Hgb 03/27/2023 11.0 (L) Hct 03/27/2023 38.3 MCV 03/27/2023 75.0 (L) MCH 03/27/2023 21.5 (L) MCHC 03/27/2023 28.7 (L) Rdw 03/27/2023 18.9 (H) Platelets 03/27/2023 278 MPV 03/27/2023 9.9 Neutrophils, abs 03/27/2023 4,644 Lymphocytes, abs 03/27/2023 684 (L) Monocyte abs 03/27/2023 444 Eosinophils, abs 03/27/2023 180 Basophils, abs 03/27/2023 48 Neutrophils 03/27/2023 77.4 Lymphocyte pct 03/27/2023 11.4 Monocytes 03/27/2023 7.4 Eosinophils 03/27/2023 3.0 Basophils 03/27/2023 0.8 Creatinine, ur 03/27/2023 87 Microalbumin, ur 03/27/2023 2.7 Microalbumin/creat ratio 03/27/2023 31 (H) Physical Exam Assessment/Plan Diagnoses and all orders for this visit: Encounter for wellness examination (Primary) Assessment & Plan: Ordered CBC, cmp, lipid, hgb a1c, TSH, Flu declines Zoster declines pcv20 declines Colonoscopy:up to date Pap smear:followed with ob Mammo:follows with Dr. Mohan F/u in 1 year for annual Chronic diastolic heart failure (HCC) Assessment & Plan: stable Essential hypertension Assessment & Plan: Bp in the office today BP Readings from Last 1 Encounters: 04/03/23 130/62 Continue current regimen of carvedilol and losartan 100mg daily Recommend DASH diet, heart-healthy lifestyle, exercise. Discussed the risks of hypertension. F/u in 6 months Mixed hyperlipidemia Assessment & Plan: Stable / clinically quiescent. Will continue to monitor. Unable to tolerate statin medication at any dose Causes muscle aches Lipid panel ordered Recurrent pulmonary emboli ([facility]) ([facility]) Assessment & Plan: eliquis was stopped because of hx of GI bleeding Type 2 diabetes mellitus with hyperlipidemia ([facility]) Assessment & Plan: The patient was counseled [...] involving multiple sites with positive rheumatoid factor ([facility]) ([facility]) Assessment & Plan: Stable Continue with rheumatology Continue with methotrexate BMI 28.0-28.9,adult Left hip pain Assessment & Plan: New concern Not at goal Muscle spasm Referral to physical therapy Flexeril 5mg at night Do not operate heavy machinery If no improvement will get xrays and referral to pain management F/u prn Iron deficiency anemia secondary to inadequate dietary iron intake Assessment & Plan: Stable / clinically quiescent. Will continue to monitor. Iron panel ordered Other orders - losartan (COZAAR) 25 mg tablet; Take 4 tablets (100 mg total) by mouth daily - cyclobenzaprine (FLEXERIL) 5 mg tablet; Take 1 tablet (5 mg total) by mouth 3 (three) times a dayas needed for muscle spasms Side effects, risks, interactions reviewed with patient. Indications for testing discussed. Any further problems to contact us. She was told what to look out for and verbalized understanding. The patient was given the opportunity to have all questions answered today and was in agreement with the plan of care. Mariangel Arteaga MD SUPPORT 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 documented in this encounter Miscellaneous Notes * Assessment & Plan Note - Mariangel Arteaga MD - 12/06/2023 12:20 PM CSTAssociated Problem(s): Iron deficiency anemia Stable / clinically quiescent. Will continue to monitor. Iron panel ordered SUPPORT 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 * Assessment & Plan Note - Mariangel Arteaga MD - 12/06/2023 11:30 AM CSTAssociated Problem(s): Left hip pain New concern Not at goal Muscle spasm Referral to physical therapy Flexeril 5mg at night Do not operate heavy machinery If no improvement will get xrays and referral to pain management F/u prn SUPPORT 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 SUPPORT 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 * Addendum Note - Mariangel Arteaga MD - 12/06/2023 11:30 AM CSTAddended by: MARIANGEL ARTEAGA on: 12/06/2023 04:41 PM Modules accepted: Orders SUPPORT 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 * Assessment & Plan Note - Mariangel Arteaga MD - 12/06/2023 7:17 AM AIR SUPPORT 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 Associated Problem(s): Encounter for wellness examination Ordered CBC, cmp, lipid, hgb a1c, TSH, Flu declines Zoster declines pcv20 declines Colonoscopy:up to date Pap smear:followed with ob Mammo:follows with Dr. Mohan F/u in 1 year for annual SUPPORT 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 SUPPORT 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 * Assessment & Plan Note - Mariangel Arteaga MD - 12/06/2023 7:16 AM AIR SUPPORT 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 Associated Problem(s): 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 rheumatoid factor (CMS/HCC) (HCC) Stable Continue with rheumatology Continue with methotrexate SUPPORT 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 * Assessment & Plan Note - Mariangel Arteaga MD - 12/06/2023 7:16 AM AIR SUPPORT 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 Associated Problem(s): History of uterine cancer She follows with ob SUPPORT 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 * Assessment & Plan Note - Mariangel Arteaga MD - 12/06/2023 7:16 AM AIR SUPPORT 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 Associated Problem(s): History of breast cancer Still follows with Dr. Mohan Continue with letrozole SUPPORT 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 * Assessment & Plan Note - Mariangel Artaega MD - 12/06/2023 7:16 AM AIR SUPPORT 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 Associated Problem(s): Type 2 diabetes mellitus with [...] ur ratio ordered F/u in 6 months SUPPORT 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 SUPPORT 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 * Assessment & Plan Note - Mariangel Arteaga MD - 12/06/2023 7:16 AM AIR SUPPORT 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 Associated Problem(s): Recurrent pulmonary emboli (CMS/HCC) (HCC) eliquis was stopped because of hx of GI bleeding SUPPORT 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 * Assessment & Plan Note - Mariangel Arteaga MD - 12/06/2023 7:15 AM AIR SUPPORT 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 Associated Problem(s): Mixed hyperlipidemia Stable / clinically quiescent. Will continue to monitor. Unable to tolerate statin medication at any dose Causes muscle aches Lipid panel ordered SUPPORT 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 SUPPORT 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 * Assessment & Plan Note - Mariangel Arteaga MD - 12/06/2023 7:15 AM AIR SUPPORT 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 Associated Problem(s): Essential hypertension Bp in the office today BP Readings from Last 1 Encounters: 04/03/23 130/62 Continue current regimen of carvedilol and losartan 100mg daily Recommend DASH diet, heart-healthy lifestyle, exercise. Discussed the risks of hypertension. F/u in 6 months SUPPORT 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 SUPPORT 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 * Assessment & Plan Note - Mariangel Arteaga MD - 12/06/2023 7:15 AM AIR SUPPORT 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 Associated Problem(s): Chronic diastolic heart failure (HCC) stable SUPPORT 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 documented in this encounter Plan of Treatment Not on file documented as of this encounter Visit Diagnoses Diagnosis Encounter for wellness examination- Primary Chronic diastolic heart failure (HCC) Chronic diastolic heart failure Essential hypertension Unspecified essential hypertension Mixed hyperlipidemia Recurrent pulmonary emboli (CMS/HCC) (HCC) 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) History of breast cancer Personal history of malignant neoplasm of breast History of uterine cancer Personal history of malignant neoplasm of other parts of uterus 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 rheumatoid factor (CMS/HCC) (HCC) BMI 28.0-28.9,adult Left hip pain Pain in joint, pelvic region and thigh Iron deficiency anemia secondary to inadequate dietary iron intake documented in this encounter Discontinued Medications Medication Sig Discontinue Reason Start Date End Da te rosuvastatin (CRESTOR) 5 mg tablet Take 1 tablet (5 mg total) by mouth daily 03/25/2021 12/06/2023 losartan (COZAAR) 100 mg tablet TAKE 1 TABLET BY MOUTH EVERY DAY Reorder 10/10/2021 12/06/2023 tobramycin-dexAMETHasone (TOBRADEX) ophthalmic solution SHAKE LIQUID AND INSTILL 1 DROP IN LEFT EYE FOUR TIMES DAILY 02/21/2022 12/06/2023 losartan (COZAAR) 25 mg tablet Take 4 tablets (100 mg total) by mouth daily 12/06/2023 12/06/2023 documented as of this encounter Care Teams Printed Forms Proofreader Relationship Specialty Start Date End Date Mariangel Arteaga MD [address] [address] PCP - General Family Medicine 05/16/22 Neil Ag MD PhD [address] [place] [address] Radiation Oncologist Radiation Oncology 12/17/18 [place] [id number] [address] [facility] [address] [facility] [place] [address] Referring Physician General Surgery 12/17/18 [place] [id number] [address] Medical Oncologist/Sink Cutter Medical Oncology 12/17/18 [place] [id number] [address] Consulting Physician Gastroenterology 01/07/20 documented as of this encounter
--- OUTSIDE RECORDS SUMMARY | 2024-11-16 12:53 | XMS_ITS | Encounter Summary ---
Author Organization [facility] Healthcare Address [address] [place] [address] Care Team Providers Care Golf Stud Riveter Name Role Phone Neil Ag MD PhD Unavailable Ita Vazquez MD Unavailable Caron Mohan MD Unavailable [phone] Pebbles Felton MD Unavailable [phone] Mariangel Quiñonez MD Primary Care Provide r Encounter Details Date Type Department Care Team (Late st Contact Info) Description 12/06/[address] 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 Gender Identity Not on file Sexual Orientation Not on file documented as of this encounter Plan of Treatment Scheduled Orders Name Type Priority Associated Diagnoses Orde r Schedule Hemoglobin A1c Lab Routine 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) Expected: 05/22/2024 (Approximate), Expires: 12/06/2024 documented as of this encounter Procedures Procedure Name Priority Date/Time Associated Diagnosis Comments LIPID PANEL WITH REFLEX TO DIRECT LDL Routine 06/20/2024 9:02 AM CDT 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) Essential hypertension Mixed hyperlipidemia Iron deficiency anemia due to chronic blood loss IRON PROFILE W/ IBC Routine 06/20/2024 9 :02 AM CDT 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) Essential hypertension Mixed hyperlipidemia Iron deficiency anemia due to chronic blood loss CBC WITH AUTO DIFFERENTIAL Routine 06/20/2024 9:02 AM CDT 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) Essential hypertension Mixed hyperlipidemia Iron deficiency anemia due to chronic blood loss ALBUMIN CREATININE RATIO, URINE Routine 06/20/2024 9:02 AM CDT 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) Essential hypertension Mixed hyperlipidemia Iron deficiency anemia due to chronic blood loss TSH Routine 06/20/2024 9:02 AM CDT 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) Essential hypertension Mixed hyperlipidemia Iron deficiency anemia due to chronic blood loss T4, FREE Routine 06/20/2024 9:02 AM CDT 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) Essential hypertension Mixed hyperlipidemia Iron deficiency anemia due to chronic blood loss HEMOGLOBIN A1C Routine 06/20/2024 9:02 AM CDT 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) Essential hypertension Mixed hyperlipidemia Iron deficiency anemia due to chronic blood loss FERRITIN Routine 06/20/2024 9:02 AM CDT 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) Essential hypertension Mixed hyperlipidemia Iron deficiency anemia due to chronic blood loss COMPREHENSIVE METABOLIC PANEL Routine 06/20/2024 9:02 AM CDT 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) Essential hypertension Mixed hyperlipidemia Iron deficiency anemia due to chronic blood loss documented in this encounter Results * (ABNORMAL) Iron profile w/ IBC (06/20/2024 9:02 AM CDT) Iron 22(L) 45 - 160 mcg/dL [facility] TIBC 456(H) 250 - 450 mcg/dL (calc) [facility] Iron saturation 5(L) 16 - 45 % (calc) [facility] Blood 06/20/2024 9:02 AM CDT 06/20/2024 9:06 AM CDT Narrative [facility] - 06/21/2024 2:32 PM CDT FASTING:YES FASTING: YES us Mariangel Quiñonez MD LAB BLOOD ORDERABLES Final Result [facility] [address] [place] [address] * (ABNORMAL) Ferritin (06/20/2024 9:02 AM CDT) Ferritin 9(L) 16 - 288 ng/mL [facility] Blood 06/20/2024 9:02 AM CDT 06/20/2024 9:06 AM CDT Narrative [facility] - 06/21/2024 2:32 PM CDT FASTING:YES FASTING: YES Mariangel Quiñonez MD LAB BLOOD ORDERABLES Final Result [facility] [place] [id number] [address] [address] [id number] * (ABNORMAL) Hemoglobin A1c (06/20/2024 9:02 AM CDT) Hgb A1C 6.5(H) <5.7 % of total Hgb [facility] Comment: For someone without known diabetes, [...] change in test platforms from the [employer] Biller to the Jocelynn varun c503 may have shifted HbA1c results compared to historical results. Based on laboratory validation testing conducted at [facility], the Jocelynn platform relative to the Dejesus [...] BLOOD ORDERABLES Final Result Performing Organization Address [facility] Co de Phone Number [facility] [facility] [address] [place] [address] * Albumin Creatinine Ratio, Urine (06/20/2024 9:02 [...] Quiñonez MD LAB URINE ORDERABLES Final Result Performing Organization Address [facility] de Phone Number [facility] [address] [place] [address] * T4, free (06/20/2024 9:02 AM CDT) Free T4 1.1 0.8 - 1.8 ng/dL [facility] Blood 06/20/2024 9:02 AM CDT 06/20/2024 9:06 AM CDT Narrative [facility] - 06/21/2024 2:32 PM CDT FASTING:YES FASTING: YES Mariangel Quiñonez MD LAB BLOOD ORDERABLES Final Result Performing Organization Address [facility] Co de Phone Number [facility] [address] [place] [address] * TSH (06/20/2024 9:02 AM CDT) Pathologist [facility] TSH 3.08 0.40 - 4.50 mIU/L [facility] Blood 06/20/2024 9:02 AM CDT 06/20/2024 9:06 AM CDT Narrative [facility] - 06/21/2024 2:32 PM CDT FASTING:YES FASTING: YES Mariangel Quiñonez MD LAB BLOOD ORDERABLES Final Result Performing Organization Address [facility] Co de Phone Number [facility] [address] [place] [address] * (ABNORMAL) Lipid panel with reflex to direct LDL (06/20/2024 9:02 AM CDT) Pathologist [facility] Cholesterol 248(H) <200 mg/dL [facility] [...] LDL-C. Harry YUAN et al. RANDALL. 2013;310(19): 0995-2823 (http://education.Moodswing.[employer]zymes/faq/FBK220) Chol/HDL ratio 3.9 <5.0 (calc) [facility] [...] MD LAB BLOOD ORDERABLES Final Result [facility] [address] [address] [phone] * (ABNORMAL) Comprehensive metabolic panel (06/20/2024 9:02 [...] [facility] BUN/creat ratio SEE NOTE: 6 (calc) [facility] Comment: ?? Not [...] LAB BLOOD ORDERABLES Final Result [facility] [address] [place] [address] * (ABNORMAL) CBC with auto differential (06/20/2024 9:02 AM CDT) WBC 7.1 3.8 - 10.8 Thousand/u L [facility] RBC, POC 5.69(H) 3.80 - 5.10 Million/uL [facility] Hgb 12.3 11.7 - 15.5 g/dL [facility] Hct 44.4 35.0 - 45.0 % [facility] MCV 78.0(L) 80.0 - 100.0 fL [facility] MCH 21.6(L) 27.0 - 33.0 pg [facility] MCHC 27.7(L) 32.0 - 36.0 g/dL [facility] Rdw 20.0(H) 11.0 - 15.0 % [facility] Platelets 252 140 - 400 Thousand/u L [facility] MPV 7.5 - 12.5 fL [facility] Comment: Due to platelet or RBC variability in size or shape the result cannot be reported accurately. Neutrophils, abs 5,325 1,500 - 7,800 cells/uL [facility] Lymphocytes, abs 994 850 - 3,900 cells/uL [facility] Monocyte abs 497 200 - 950 cells/uL [facility] Eosinophils, abs 142 15 - 500 cells/uL [facility] Basophils, abs 142 0 - 200 cells/uL [facility] Neutrophils 75 % [facility] Lymphocyte pct 14 % [facility] Monocytes 7 % [facility] Eosinophils 2 % [facility] Basophils 2 % [facility] Comment [facility] Comment: Ovalocytes 1 + Schistocytes 1 + Tear-drop cells 1 + Review of the peripheral smear reveals adequate numbers of platelets. The smear has been manually reviewed and the manual differential has been reported. Blood 06/20/2024 9:02 AM CDT 06/20/2024 9:06 AM CDT Narrative [facility] - 06/21/2024 2:32 PM CDT FASTING:YES FASTING: YES Mariangel Quiñonez MD LAB BLOOD ORDERABLES Final Result [facility] [address] [place] [address] documented in this encounter Visit Diagnoses Diagnosis 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)- Primary Essential hypertension Unspecified essential hypertension Mixed hyperlipidemia Iron deficiency anemia due to chronic blood loss Iron deficiency anemia secondary to blood loss (chronic) documented in this encounter Care Teams Golf Stud Riveter Relationship Specialty Start Date End Date Mariangel Quiñonez MD 2 [facility] [address] [address] PCP - General Family Medicine 05/16/22 Neil Ag MD PhD 6 [facility] [place] [address] Radiation Oncologist Radiation Oncology 12/17/18 [place] [address] [id number] Referring Physician General Surgery 12/17/18 [place] [address] [address] Medical Oncologist/Loan Review Officer Medical Oncology 12/17/18 [place] [address] [place] [place] [address] Consulting Physician Gastroenterology 01/07/20 documented as of this encounter
--- OUTSIDE RECORDS SUMMARY | 2024-11-16 12:53 | XMS_ITS | Encounter Summary ---
Author Organization [facility] Medical Group Address [address] [place] [address] Care Team Providers Care Drill Press Hand Name Role Phone Neil Ag MD PhD Unavailable [phone] Ita Vazquez MD Unavailable Caron Mohan MD Unavailable Pebbles Felton MD Unavailable [phone] Mariangel Quiñonez MD Primary Care Provide r Reason for Visit * Reason Comments Diabetes Hypertension Encounter Details Date Type Department Care Team (Late st Contact Info) Description 04/03/2023 11:00 AM CDT Office Visit [facility] Medical [facility] Primary Care at [address] [place] [address] Mariangel Quiñonez MD [address] [place] [address] [address] [place], [place] [id number] Mixed hyperlipidemia (Primary Dx); BMI 28.0-28.9,adult; Essential hypertension; 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) [...] on file 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 Gender Identity Not on file Sexual Orientation Not on file documented as of this encounter Last Filed Vital Signs Vital Sign Reading Time Taken Comments Blood Pressure 130/62 04/03/2023 10:32 AM CDT Pulse 94 04/03/2023 10:32 AM CDT Temperature - - Respiratory Rate 20 04/03/2023 10:32 AM CDT Oxygen Saturation 96% 04/03/2023 10:32 AM CDT Inhaled Oxygen Concentration - - Weight 83.5 kg (184 lb) 04/03/2023 10:32 AM CDT Height 170.2 cm (5' 7 ) 04/03/2023 10:32 AM CDT Body Mass Index 28.82 04/03/2023 10:32 AM CDT documented in this encounter Patient Instructions * Patient Instructions* Mariangel Quiñonez MD - 04/03/2023 11:00 AM CDT Restart carvedilol 6.25mg twice a day, losartan 100mg daily, rosuvastatin 5mg at night Swimmers ear for ear wax My medical health researcher and I are thankful you have trusted [...] were not feeling your best! -Dr. Quiñonez documented in this encounter Progress Notes * Mariangel Quiñonez MD - 04/03/2023 11:00 AM CDT Images from the original note were not included. Subjective/Objective Patient ID: Jolene Cedillo is a 77 y.o. female. Chief Complaint Diabetes and Hypertension HPI 77f coming in for follow up on htn and DM. She does not check her bp or her DM number at home. I recommend checking the blood pressure at home. She stopped taking her blood pressure medications on her own. She stopped this because of fatigue. I explained that she should not stop blood pressure medication without speaking to a provider and I do not recommend stopping this medication as it has been controlling her blood pressure. She takes her antiacid for the heartburn. Review of Systems Constitutional: Negative for chills and fever. Respiratory: Negative for cough and shortness of breath. Cardiovascular: Negative for chest pain. Gastrointestinal: Negative for abdominal pain. Vitals: 04/03/23 1032 BP: 130/62 BP Location: Right arm Patient Position: Sitting Pulse: 94 Resp: 20 SpO2: 96% Weight: 83.5 kg (184 lb) Height: 170.2 cm (5' 7 ) Orders Only on 03/27/2023 Component Date Value [...] Microalbumin/creat ratio 03/27/2023 31 (H) Physical Exam Constitutional: General: She is not [...] Diagnoses and all orders for this visit: Mixed hyperlipidemia (Primary) Assessment & Plan: Stable / clinically quiescent. Will continue to monitor. Continue statin BMI 28.0-28.9,adult Essential hypertension Assessment & Plan: Bp in the office today BP Readings from Last 1 Encounters: 02/11/23 136/62 Continue current regimen of carvedilol and losartan 100mg daily Recommend DASH diet, heart-healthy lifestyle, exercise. Discussed the risks of hypertension. F/u in 3 months Type 2 diabetes mellitus with hyperlipidemia [...] ur ratio ordered F/u in 6 months Side effects, risks, interactions reviewed [...] Plan Note - Mariangel Quiñonez MD - 04/03/2023 10:57 AM CDTAssociated Problem(s): Mixed hyperlipidemia Stable / clinically quiescent. Will continue to monitor. Continue statin * Assessment & Plan Note - Mariangel Quiñonez MD - 04/02/2023 9:23 PM CDT Associated Problem(s): Type 2 diabetes mellitus [...] Plan Note - Mariangel Quiñonez MD - 04/02/2023 9:23 PM CDT Associated Problem(s): Essential hypertension Bp in the office today BP Readings from Last 1 Encounters: 02/11/23 136/62 Continue current regimen of carvedilol and losartan 100mg daily Recommend DASH diet, heart-healthy lifestyle, exercise. Discussed the risks of hypertension. F/u in 3 months documented in this encounter Plan of Treatment Not on file documented as of this encounter Visit Diagnoses Diagnosis Mixed hyperlipidemia- Primary BMI 28.0-28.9,adult Essential hypertension Unspecified essential hypertension 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) documented in this encounter Care Teams Drill Press Hand Relationship Specialty Start Date End Date Mariangel Quiñonez MD 2 [facility] [address] [address] PCP - General Family Medicine 05/16/22 Neil Ag MD PhD 6 [facility] [place] [address] Radiation Oncologist Radiation Oncology 12/17/18 [place] [address] [facility] [address] [place] [address] Referring Physician General Surgery 12/17/18 [place] [address] [facility] [address] [place] [id number] Medical Oncologist/Steel Die Printer Medical Oncology 12/17/18 [place] [address] [facility] [address] [place] [address] Consulting Physician Gastroenterology 01/07/20 documented as of this encounter
--- OUTSIDE RECORDS SUMMARY | 2024-11-16 12:53 | XMS_ITS | Encounter Summary ---
Author Organization [facility] Medical Group Address [address] [place] [address] Care Team Providers Care Travel Clerk Name Role Phone Neil Ag MD PhD Unavailable Ita Vazquez MD Unavailable Caron Mohan MD Unavailable Pebbles Felton MD Unavailable [phone] Mariangel Quiñonez MD Primary Care Provide r Encounter Details Date Type Department Care Team (Late st Contact Info) Description 10/16/2022 Telephone [facility] Medical Group Primary Care at [address] [place] [address] Mariangel Quiñonez MD [address] [place] [address] [address] [place] [address] Social History Tobacco Use Types [...] on file 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 ordered LOPMENTAL SPECIALIST * Telephone Encounter - Lorene Lorenzo MA - 10/16/2022 1:41 PM CST ----- Message from Mariangel Quiñonez MD sent at 10/15/2022 8:48 PM DEVELOPMENTAL SPECIALIST ----- Let patient know her cholesterol is up. She really needs to work on diet and exercise. Everything else is stable. A1c is 6.5. Repeat cbc cmp lipid a1c albumin cr urine ratio in 1 year Dx t2dm health maintenance LOPMENTAL SPECIALIST documented in this encounter Plan of Treatment Not on file documented as of this encounter Visit Diagnoses Diagnosis History of uterine cancer- Primary Personal history of malignant neoplasm of other parts of uterus 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) Mixed hyperlipidemia documented in this encounter Care Teams Travel Clerk Relationship Specialty Start Date End Date Mariangel Quiñonez MD 2 [facility] [address] [address] PCP - General Family Medicine 05/16/22 Neil Ag MD PhD [address] [facility] [place] [address] Radiation Oncologist Radiation Oncology 12/17/18 [place] [address] [address] [facility] [address] [place], [place] [phone] Referring Physician General Surgery 12/17/18 [place] [address] [address] [facility] [address] [place], [place] [id number] Medical Oncologist/Infantry Officer Medical Oncology 12/17/18 [place] [address] [address] [facility] [address] [place], [place] [address] Consulting Physician Gastroenterology 01/07/20 documented as of this encounter
--- OUTSIDE RECORDS SUMMARY | 2024-11-16 12:53 | XMS_ITS | Encounter Summary ---
Author Organization [facility] Address [address] [facility] [address] [place] [address] Care Team Providers Care Trip Follower Name Role Phone Neil Ag MD PhD Unavailable Ita Vazquez MD Unavailable Caron Mohan MD Unavailable [phone] Pebbles Felton MD Unavailable [phone] Mariangel Quiñonez MD Primary Care Provide r Reason for Visit * Reason Comments Cough Pt is fatigued, rece ntly seen at [facility] and given steroid and albuterol inhaler for her Sx. Cough and fatigue are her current symptoms.Hx of Covid in November. Encounter Details Date Type Department Care Team (Late st Contact Info) Description 02/11/2023 11:45 AM CDT Office Visit [facility] [address] [place] [id number] Alana Dewey, SCHOOL BUS AIDE [address] [place] [address] Bronchitis (Primary Dx) Social History Tobacco Use Types Packs/Day Years Used Date Smoking Tobacco: Never Smokeless Tobacco: Never Alcohol Use Standard Drinks/Week Comments No 0 (1 standard drink = 0.6 oz pur e alcohol) Overall [facility] Strain [facility] Answe r Date Recorded Difficulty of Paying [...] on file 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 Gender Identity Not on file Sexual Orientation Not on file documented as of this encounter Last Filed Vital Signs Vital Sign Reading Time Taken Comments Blood Pressure 136/62 02/11/2023 10:38 AM CDT Pulse 98 02/11/2023 10:38 AM CDT Temperature 36.8 ??C (98.2 ??F) 02/11/2023 10:38 AM C DT Respiratory Rate 20 02/11/2023 10:38 AM CDT Oxygen Saturation 94% 02/11/2023 10:38 AM CDT Inhaled Oxygen Concentration - - Weight 86.2 kg (190 lb) 02/11/2023 10:38 AM CDT Height 170.2 cm (5' 7 ) 02/11/2023 10:38 AM CDT Body Mass Index 29.76 02/11/2023 10:38 AM CDT documented in this encounter Patient Instructions * Patient Instructions* Alana Dewey NP - 02/11/2023 11:45 AM CDT Continue medications as prescribed. * Attachments The following attachments cannot be sent through Care Everywhere. * Acute Bronchitis (General Information) ([place]) documented in this encounter Progress Notes * Alana Dewey NP - 02/11/2023 11:45 AM CDT Images from the original note were not included. Patient ID: Jolene Cedillo is a 77 y.o. female followed by Mariangel Quiñonez MD Chief Complaint Patient presents with Cough Pt is fatigued, recently seen at [facility] and given steroid and albuterol inhaler for her Sx. Hx of Covid in November. Presents to [facility] care with complaint of fatigue, nasal congestion, and postnasal drainage, onset 02/07/2023. She was seen at [facility] urgent care on 02/08/2023, prescribed steroid and albuterol. Review of Systems Constitutional: Positive for fatigue. Negative for chills and fever. HENT: Positive for congestion and postnasal drip. Negative for ear pain, rhinorrhea and sore throat. Respiratory: Negative for cough, chest tightness, shortness of breath and wheezing. Cardiovascular: Negative for chest pain. Neurological: Negative for headaches. Vitals: 02/11/23 1038 BP: 136/62 BP Location: Right arm Patient Position: Sitting Pulse: 98 Resp: 20 Temp: 36.8 ??C (98.2 ??F) TempSrc: Temporal SpO2: 94% Weight: 86.2 kg (190 lb) Height: 170.2 cm (5' 7 ) No results found for this or any previous visit (from the past 24 hour(s)). Physical Exam Vitals reviewed. Constitutional: Appearance: She is well-developed. HENT: Right Ear: Tympanic membrane and external ear normal. Tympanic membrane is not injected, erythematous or bulging. Left Ear: Tympanic membrane and external ear normal. Tympanic membrane is not injected, erythematous or bulging. Nose: Right Sinus: No maxillary sinus tenderness or frontal sinus tenderness. Left Sinus: No maxillary sinus tenderness or frontal sinus tenderness. Mouth/Throat: Lips: [place]. Mouth: Mucous membranes are moist. Pharynx: No posterior oropharyngeal erythema. Tonsils: No tonsillar exudate. Eyes: Conjunctiva/sclera: Conjunctivae normal. Cardiovascular: Rate and Rhythm: Normal rate and regular rhythm. Pulmonary: Effort: Pulmonary effort is normal. Breath sounds: Normal breath sounds. No wheezing or rhonchi. Comments: Cough noted during exam. Musculoskeletal: General: Normal range of motion. Skin: General: Skin is warm and dry. Neurological: Mental Status: She is alert and oriented to person, place, and time. There are no diagnoses linked to this encounter. No orders of the defined types were placed in this encounter. Assessment/Plan Lungs CTA, O2 Saturation @94%/RA, low suspicion for pneumonia at this time. Patient declines CXR, reports negative X-Ray result on 02/08/23. Advised to continue medications as prescribed and f/u with PCP. Educated on f/u precautions including signs/symptoms warranting ER evaluation. Discussed home self-care, follow up needs, and signs and symptoms that warrant immediate medical attention/ER evaluation including worsening fever, increased shortness of breath, severe N/V/D, or anyother worrisome symptoms Discussed symptomatic relief of symptoms Patient Education Continue medications as prescribed. Acute Bronchitis WHAT YOU NEED TO KNOW: What is acute bronchitis? Acute bronchitis is swelling and irritation in the air passages of your lungs. This irritation may cause you to cough or have other breathing problems. Acute bronchitis often starts because of another illness, such as a cold or the flu. The illness spreads from your nose and throat to your windpipe and airways. Bronchitis is often called a chest cold. Acute bronchitis lasts about 3 to 6 weeks and is usually not a serious illness. What causes acute bronchitis? Infection caused by a virus, bacteria, or a fungus Polluted air caused by chemical fumes, dust, smoke, allergens, or pollution What increases my risk for acute bronchitis? Age, usually older adults Smoking cigarettes or being around cigarette smoke Chronic lung diseases or chronic sinus infections Weakened immune system Gastroesophageal reflux disease Allergies and environmental changes What are the signs and symptoms of acute bronchitis? A cough with sputum that may be clear, yellow, or green Feeling more tired than usual, and body aches A fever and chills Wheezing when you breathe A tight chest or pain when you breathe or cough How is acute bronchitis diagnosed? Your healthcare provider may diagnose bronchitis by your symptoms. If he is not sure, you may need the following: Blood tests will be done to see if your symptoms are caused by an infection. X-ray pictures of your lungs and heart may show signs of infection, such as pneumonia. Chest x-raysmay also show fluid around your heart and lungs. How is acute bronchitis treated? Your healthcare provider will treat any condition that has caused your acute bronchitis. He may also give you any of the following: Ibuprofen or acetaminophen are medicines that help lower your fever. They are available without a doctor's order. Ask your healthcare provider which medicine is right for you. Ask how much to take and how often to take it. Follow directions. These medicines can cause stomach bleeding if not taken correctly. Ibuprofen can cause kidney damage. Do not take ibuprofen if you have kidney disease, an ulcer, or allergies to aspirin. Acetaminophen can cause liver damage. Do not take more than 4,000 milligrams in 24 hours. Decongestants help loosen mucus in your lungs and make it easier to cough up. This can help you breathe easier. Cough suppressants decrease your urge to cough. If your cough produces mucus, do not take a cough suppressant unless your healthcare provider tells you to. Your healthcare provider may suggest that you take a cough suppressant at night so you can rest. Inhalers may be given. Your healthcare provider may give you one or more inhalers to help you breathe easier and cough less. An inhaler gives your medicine to open your airways. Ask your healthcare provider to show you how to use your inhaler correctly. How can I care for myself when I have acute bronchitis? Get more rest. Rest helps your body to heal. Slowly start to do more each day. Rest when you feel it is needed. Avoid irritants in the air. Avoid chemicals, fumes, and dust. Wear a face mask if you must work around dust or fumes. Stay inside on days when air pollution levels are high. If you have allergies, stay inside when pollen counts are high. Do not use aerosol products, such as spray-on deodorant, bug spray, and hair spray. Do not smoke or be around others who smoke. Nicotine and other chemicals in cigarettes and cigars damages the cilia that move mucus out of your lungs. Ask your healthcare provider for information if you currently smoke and need help to quit. E-cigarettes or smokeless tobacco still contain nicotine.Talk to your healthcare provider before you use these products. Drink liquids as directed. Liquids help keep your air passages moist and help you cough up mucus. You may need to drink more liquids when you have acute bronchitis. Ask how much liquid to drink each day and which liquids are best for you. Use a humidifier or vaporizer. Use a cool mist humidifier or a vaporizer to increase air moisture in your home. This may make it easier for you to breathe and help decrease your cough. How can I decrease my risk for acute bronchitis? Get the vaccinations you need. Ask your healthcare provider if you should get vaccinated against the flu or pneumonia. Prevent the spread of germs. You can decrease your risk of acute bronchitis and other illnesses by doing the following: Wash your hands often with soap and water. Carry germ-killing hand lotion or gel with you. You can use the lotion or gel to clean your hands when soap and water are not available. Do not touch your eyes, nose, or mouth unless you have washed your hands first. Always cover your mouth when you cough to prevent the spread of germs. It is best to cough into a tissue or your shirt sleeve instead of into your hand. Ask those around you cover their mouths when they cough. Try to avoid people who have a cold or the flu. If you are sick, stay away from others as much as possible. When should I seek immediate care? You cough up blood. Your lips or fingernails turn blue. You feel like you are not getting enough air when you breathe. When should I contact my healthcare provider? You have a fever. Your breathing problems do not go away or get worse. Your cough does not get better within 4 weeks. You have questions or concerns about your condition or care. CARE AGREEMENT: You have the right to help plan your care. Learn about your health condition and how it may be treated. Discuss treatment options with your caregivers to decide what care you want to receive. You always have the right to refuse treatment. The above information is an dietary aid only. It is not intended as medical advice for individual conditions or treatments. Talk to your doctor, nurse or pharmacist before following any medical regimen to see if it is safe and effective for you. ?? 2017 [employer] Information is for End User's use only and may not be sold, redistributed or otherwise used for commercial purposes. All illustrations and images included in CareNotes?? are the copyrighted property of [employer] or [employer]. documented in this encounter Plan of Treatment Not on file documented as of this encounter Visit Diagnoses Diagnosis Bronchitis- Primary Bronchitis, not specified as acute or chronic documented in this encounter Historical Medications * This list may reflect changes made after this encounter. predniSONE (DELTASONE) 20 mg tablet TAKE 2 TABLETS BY MOUTH DAILY FOR 5 DAYS 02/08/2023 06/26/2024 added in this encounter Additional Health Concerns Infection Onset Date Last Indicated Resolved Time COVID: Recovered Comment:Added based on recent COVID infection. 12/18/2022 02/11/2023 03/18/2023 3:06 AM C DT documented as of this encounter Care Teams Trip Follower Relationship Specialty Start Date End Date Mariangel Quiñonez MD [address] [address] PCP - General Family Medicine 05/16/22 Neil Ag MD PhD [address] [place] [address] Radiation Oncologist Radiation Oncology 12/17/18 [place] [address] [facility] [address] [place], [place] [id number] Referring Physician General Surgery 12/17/18 [place] [address] [facility] [address] [place], [place] [id number] Medical Oncologist/Water Proofer Medical Oncology 12/17/18 [place] [address] [facility] [address] [place] [address] Consulting Physician Gastroenterology 01/07/20 documented as of this encounter
--- OUTSIDE RECORDS SUMMARY | 2024-11-16 12:54 | XMS_ITS | Encounter Summary ---
Author Organization [facility] Address [address] [facility] [address] [place] [address] Care Team Providers Care Clinician Oncology Name Role Phone Francisco Long MD Primary Care Provider [phone] Neil Ag MD PhD Unavailable [phone] Ita estrada MD Unavailable Caron Mohan MD Unavailable Pebbles Felton MD Unavailable [phone] Reason for Visit * Reason Onset Date Comments Covid-19 Home Monitoring 12/12/2021 daily c all Encounter Details Date Type Department Care Team (Late st Contact Info) Description 12/12/2021 Telephone [facility] Accountable Care Organization [address] [place] [address] Yamileth Meade MA [address] [place] [address] [facility] [address] [place] [address] Covid-19 Home Monitoring (daily call ) Social History Tobacco Use Types Packs/Day [...] points, staff should administer the PHQ-9) 0 09/28/2021 Hunger Vital Sign Answer Date Recorded Worried [...] on file 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 : No This patient is being disenrolled from the phone-only version of the COVID-19 home monitoring program for the following reason: Complete The patient has either completed the full 14-day program or has expressed 3 days of improved or no symptoms and 7 days since initial onset. We recommend that they are scheduled for a telemedicine evaluation with a primary care provider within 3 days of completion of the program. For questions or concerns about the home monitoring program, please contact . Pt is doing well and would like to complete program. RVISOR PIPE JOINTS documented in this encounter Plan of Treatment Not on file documented as of this encounter Visit Diagnoses Not on filedocumented in this encounter Additional Health Concerns Infection Onset Date Last Indicated Resolved Time COVID19 12/07/2021 12/07/2021 12/17/2021 3:05 AM SUPERVISOR PIPE JOINTS documented as of this encounter Care Teams Clinician Oncology Relationship Specialty Start Date End Date Francisco Long MD PCP - General 02/23/17 05/15/22 Neil Ag MD PhD [address] [place] [address] Radiation Oncologist Radiation Oncology 12/17/18 [place] [id number] [facility] [address] [place] [id number] Referring Physician General Surgery 12/17/18 [place] [address] [facility] [address] [place] [id number] Medical Oncologist/Showroom Consultant Medical Oncology 12/17/18 [place] [address] [facility] [address] [place] [address] Consulting Physician Gastroenterology 01/07/20 documented as of this encounter
--- OUTSIDE RECORDS SUMMARY | 2024-11-16 12:54 | XMS_ITS | Encounter Summary ---
Author Organization [facility] Address [address] [facility] [address] [place] [address] Care Team Providers Care Planning Technician Name Role Phone Francisco Long MD Primary Care Provider Neil Ag MD PhD Unavailable [phone] Ita estrada MD Unavailable Caron Mohan MD Unavailable Pebbles Felton MD Unavailable [phone] Reason for Visit * Reason Onset Date Comments Covid-19 Home Monitoring 12/11/2021 Daily C all Encounter Details Date Type Department Care Team (Late st Contact Info) Description 12/11/2021 Telephone [facility] Accountable Care Organization [address] [place] [address] Zulema Alvarado Covid-19 Home Monitoring (Daily Call) Social History Tobacco Use Types Packs/Day Years [...] on file 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 : No This patient has enrolled in the PHONE ONLY version of COVID-19 Home Monitoring Program. COVID-19 Symptom questionnaire was completed today. Symptoms were addressed to be Mild. Escalation was not needed. Next Program Call Due: 12/12/21 OFFICER documented in this encounter Plan of Treatment Not on file documented as of this encounter Visit Diagnoses Not on filedocumented in this encounter Additional Health Concerns Infection Onset Date Last Indicated Resolved Time COVID19 12/07/2021 12/07/2021 12/17/2021 3:05 AM GIFT OFFICER documented as of this encounter Care Teams Planning Technician Relationship Specialty Start Date End Date Francisco Long MD PCP - General 02/23/17 05/15/22 Neil Ag MD PhD [address] [place] [address] Radiation Oncologist Radiation Oncology 12/17/18 [place] [address] [facility] [address] [place] [address] Referring Physician General Surgery 12/17/18 [place] [address] [address] Medical Oncologist/Academic Associate Medical Oncology 12/17/18 [place] [id number] [address] Consulting Physician Gastroenterology 01/07/20 documented as of this encounter
--- OUTSIDE RECORDS SUMMARY | 2024-11-16 12:54 | XMS_ITS | Encounter Summary ---
Author Organization [facility] Medical [facility] Address [address] [facility] [address] [place] [address] Care Team Providers Care Director Of Federal Sales Name Role Phone Francisco Long MD Primary Care Provider [phone] Neil Ag MD PhD Unavailable [phone] Ita Vazquez MD Unavailable Caron Mohan MD Unavailable Pebbles Felton MD Unavailable [phone] Reason for Visit * Reason Comments Hypertension Diabetes Anemia Encounter Details Date Type Department Care Team (Late st Contact Info) Description 03/28/2022 10:00 AM CDT Office Visit [facility] [address] [facility] [address] [place] [address] Francisco Long MD [address] [place] [address] [address] [place] [address] 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) (Primary Dx); Overweight with body mass index (BMI) of 29 to 29.9 in adult; Essential hypertension; Iron deficiency anemia secondary to inadequate dietary [...] on file 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 Gender Identity Not on file Sexual Orientation Not on file documented as of this encounter Last Filed Vital Signs Vital Sign Reading Time Taken Comments Blood Pressure 118/80 03/28/2022 10:03 AM CDT Pulse 60 03/28/2022 10:03 AM CDT Temperature - - Respiratory Rate 20 03/28/2022 10:03 AM CDT Oxygen Saturation - - Inhaled Oxygen Concentration - - Weight 85.7 kg (189 lb) 03/28/2022 10:03 AM CDT Height 170.2 cm (5' 7 ) 03/28/2022 10:03 AM CDT Body Mass Index 29.6 03/28/2022 10:03 AM CDT documented in this encounter Progress Notes * Francisco Long MD - 03/28/2022 10:00 AM CDT Subjective/Objective Patient ID: Jolene Cedillo is a 76 y.o. female. Chief Complaint Hypertension, Diabetes, and Anemia HPI patient returns today her A1c test was not done rest for lab work discussed with patient the blood pressure under pretty good control her anemia is resolved iron levels are coming up with iron supplementation daily no melena no hematochezia Review of Systems patient sees her client account manager Dawna Murray on a regular basis and also sees her autos disassembler Dr. Chun for rheumatoid arthritis Vitals: 03/28/22 1003 BP: 118/80 BP Location: Left arm Patient Position: Sitting Pulse: 60 Resp: 20 Weight: 85.7 kg (189 lb) Height: 170.2 cm (5' 7 ) Physical Exam she is pleasant no distress blood pressure confirmed lungs clear cardiovascular regular abdomen soft Assessment/Plan Diagnoses and all orders for this visit: 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) (Primary) last A1c test was excellent get 1 today Overweight with body mass index (BMI) of 29 to 29.9 in adult encouraged little more daily exercise some mild weight loss Essential hypertension good control with current regimen continue same Iron deficiency anemia secondary to inadequate dietary iron intake iron level is improving he hemoglobin improving and back to normal follow-up with new primary care physician this summer Side effects, risks, interactions reviewed with patient. Indications for testing discussed. Any further problems to contact us. She was told what to look out for and verbalized understanding. The patient was given the opportunity to have all questions answered today and was in agreement with the plan of care. documented in this encounter Plan of Treatment Not on file documented as of this encounter Visit Diagnoses Diagnosis 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)- Primary Overweight with body mass index (BMI) of 29 to 29.9 in adult Essential hypertension Unspecified essential hypertension Iron deficiency anemia secondary to inadequate dietary iron intake documented in this encounter Discontinued Medications Medication Sig Discontinue Reason Start Date End Da te white petrolatum-mineral oil (white petrolatum-mineral oiL) ointment Apply 1 application to left eye 2 (two) times a day Therapy completed 04/24/2021 03/28/2022 documented as of this encounter Historical Medications * This list may reflect changes made after this encounter. tobramycin-dexAME THasone (TOBRADEX) ophthalmic solution SHAKE LIQUID AND INSTILL 1 DROP IN LEFT EYE FOUR TIMES DAILY 02/21/2022 12/06/2023 added in this encounter Additional Health Concerns Infection Onset Date Last Indicated Resolved Time COVID: Recovered Comment:Added based on recent COVID infection. 12/17/2021 03/02/2022 04/16/2022 3:05 AM C DT documented as of this encounter Care Teams Director Of Federal Sales Relationship Specialty Start Date End Date Francisco Long MD PCP - General 02/23/17 05/15/22 Neil Ag MD PhD [address] [place] [address] Radiation Oncologist Radiation Oncology 12/17/18 [place] [address] [facility] [address] [place] [id number] Referring Physician General Surgery 12/17/18 [place] [address] [facility] [address] [place], [place] [id number] Medical Oncologist/Seamer Operator Medical Oncology 12/17/18 [place] [address] [facility] [address] [place], [place] [id number] Consulting Physician Gastroenterology 01/07/20 documented as of this encounter
--- OUTSIDE RECORDS SUMMARY | 2024-11-16 12:54 | XMS_ITS | Encounter Summary ---
Author Organization [facility] Address [address] [place] [address] Care Team Providers Care [employer] Physical Education Teacher Name Role Phone Francisco Long MD Primary Care Provider [phone] Neil Ag MD PhD Unavailable [phone] Ita estrada MD Unavailable Caron Mohan MD Unavailable Pebbles Felton MD Unavailable [phone] Reason for Visit * Reason Onset Date Comments Covid-19 Home Monitoring 12/10/2021 Encounter Details Date Type Department Care Team (Late st Contact Info) Description 12/10/2021 Telephone [facility] Accountable Care Organization [address] [place] [address] [id number] Carey Rodriguez [address] [place] [address] [address] [place] [address] Covid-19 Home Monitoring Social History Tobacco Use Types Packs/Day Years [...] on file 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 COVID-19 Symptom questionnaire was not completed today, because the patient could not be reached. Next Program Call Due: 12/11/21 IN WASHER documented in this encounter Plan of Treatment Not on file documented as of this encounter Visit Diagnoses Not on filedocumented in this encounter Additional Health Concerns Infection Onset Date Last Indicated Resolved Time COVID19 12/07/2021 12/07/2021 12/17/2021 3:05 AM BOBBIN WASHER documented as of this encounter Care Teams [employer] Physical Education Teacher Relationship Specialty Start Date End Date Francisco Long MD PCP - General 02/23/17 05/15/22 Neil Ag MD PhD [address] [place] [address] Radiation Oncologist Radiation Oncology 12/17/18 [place] [address] [facility] [address] [address] Referring Physician General Surgery 12/17/18 [place] [address] [facility] [address] [place] [address] Medical Oncologist/Photo Checker And Assembler Medical Oncology 12/17/18 [place] [address] [address] Consulting Physician Gastroenterology 01/07/20 documented as of this encounter
--- OUTSIDE RECORDS SUMMARY | 2024-11-16 12:54 | XMS_ITS | Encounter Summary ---
Author Organization [facility] Address [address] [facility] [address] [place] [address] Care Team Providers Care Field Merchandiser Name Role Phone Francisco Long MD Primary Care Provider [phone] Neil Ag MD PhD Unavailable [phone] Ita estrada MD Unavailable Caron Mohan MD Unavailable Pebbles Felton MD Unavailable [phone] Reason for Visit * Reason Onset Date Comments Covid-19 Home Monitoring 12/09/2021 daily c alls Encounter Details Date Type Department Care Team (Late st Contact Info) Description 12/09/2021 Telephone [facility] Accountable Care Organization [address] [place] [address] Natividad Marin MA [address] [place] [address] [facility] [address] [place] [address] Covid-19 Home Monitoring (daily calls ) Social History Tobacco Use Types Packs/Day [...] on file 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 COVID-19 Symptom questionnaire was completed today. Symptoms were addressed to be Mild. Escalation was not needed. Next Program Call Due: 12/10 COVID-19 Home Monitoring Flowsheet Answers: Temp/Pulse Ox Temp: (normal temp) Symptom Monitoring Are you feeling short of breath today?: No Are you having a cough today?: Yes Cough Details:: Better Are you experiencing weakness today?: No How is your appetite compared to yesterday?: Unchanged Are you vomiting?: No Are you experiencing diarrhea? : No EDITED PHARMACY TECHNICIAN documented in this encounter Plan of Treatment Not on file documented as of this encounter Visit Diagnoses Not on filedocumented in this encounter Additional Health Concerns Infection Onset Date Last Indicated Resolved Time COVID19 12/07/2021 12/07/2021 12/17/2021 3:05 AM ACCREDITED PHARMACY TECHNICIAN documented as of this encounter Care Teams Field Merchandiser Relationship Specialty Start Date End Date Francisco Long MD PCP - General 02/23/17 05/15/22 Neil Ag MD PhD [address] [place] [address] Radiation Oncologist Radiation Oncology 12/17/18 [place] [address] [facility] [address] [place], [place] [id number] Referring Physician General Surgery 12/17/18 [place] [address] [id number] Medical Oncologist/Sail Maker Medical Oncology 12/17/18 [place] [address] [facility] [address] [place], [place] [id number] Consulting Physician Gastroenterology 01/07/20 documented as of this encounter
--- OUTSIDE RECORDS SUMMARY | 2024-11-16 12:54 | XMS_ITS | Encounter Summary ---
Author Organization [facility] Medical [facility] Address [address] [facility] [facility] [address] [facility] [address] [place] [address] Care Team Providers Care Fixed Income Director Name Role Phone Francisco Long MD Primary Care Provider Neil Ag MD PhD Unavailable [phone] Ita estrada MD Unavailable Caron Mohan MD Unavailable Pebbles Felton MD Unavailable [phone] Encounter Details Date Type Department Care Team (Late st Contact Info) Description 03/28/2022 Orders Only [facility] [address] [facility] [address] [place] [address] Francisco Long MD [address] [place] [address] [address] [place] [address] 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) (Primary Dx) Social History Tobacco Use Types [...] on file 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 Gender Identity Not on file Sexual Orientation Not on file documented as of this encounter Miscellaneous Notes * Result Encounter Note - Francisco Long MD - 03/29/2022 7:17 AM CDT Okay to leave a message A1c test 6.6 excellent sugar control all good news documented in this encounter Plan of Treatment Not on file documented as of this encounter Procedures Procedure Name Priority Date/Time Associated Diagnosis Comments HEMOGLOBIN A1C Routine 03/28/2022 11:13 AM CDT 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) documented in this encounter Results * (ABNORMAL) Hemoglobin A1c (03/28/2022 11:13 AM CDT) Hgb A1C 6.6(H) <5.7 % of total Hgb [facility] Comment: For someone without known [...] diagnosis of diabetes for children. ?? Blood specimen (specimen) 03/28/2022 11:13 AM CDT 03/28/2022 11:14 AM CDT Francisco Long MD LAB BLOOD ORDERABLES Final Res ult [facility] [address] [place] [address] documented in this encounter Visit Diagnoses Diagnosis 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)- Primary documented in this encounter Additional Health Concerns Infection Onset Date Last Indicated Resolved Time COVID: Recovered Comment:Added based on recent COVID infection. 12/17/2021 03/02/2022 04/16/2022 3:05 AM C DT documented as of this encounter Care Teams Fixed Income Director Relationship Specialty Start Date End Date Francisco Long MD PCP - General 02/23/17 05/15/22 Neil Ag MD PhD [address] [place] [address] Radiation Oncologist Radiation Oncology 12/17/18 [place] [address] [id number] Referring Physician General Surgery 12/17/18 [place] [address] [id number] Medical Oncologist/Amr Physician Medical Oncology 12/17/18 [place] [address] [address] Consulting Physician Gastroenterology 01/07/20 documented as of this encounter
--- OUTSIDE RECORDS SUMMARY | 2024-11-16 12:55 | XMS_ITS | Encounter Summary ---
Author Organization [facility] Address [address] [place] [address] Care Team Providers Care Fibrous Plasterer Name Role Phone Francisco Long MD Primary Care Provider [phone] Neil Ag MD PhD Unavailable [phone] Ita estrada MD Unavailable Caron Mohan MD Unavailable Pebbles Felton MD Unavailable [phone] Reason for Visit * Reason Onset Date Comments Covid-19 Home Monitoring 12/08/2021 Encounter Details Date Type Department Care Team (Late st Contact Info) Description 12/08/[address] 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 COVID-19 Symptom questionnaire was completed today. Symptoms were addressed to be Mild. Escalation was not needed. Next Program Call Due: OVID-19 Home Monitoring Flowsheet Answers: Temp/Pulse Ox Symptom Monitoring Are you feeling short of breath today?: No Are you having a cough today?: Yes Cough Details:: Better Are you experiencing weakness today?: No How is your appetite compared to yesterday?: Unchanged Are you vomiting?: No Are you experiencing diarrhea? : No REPAIRER documented in this encounter Plan of Treatment Not on file documented as of this encounter Visit Diagnoses Not on filedocumented in this encounter Additional Health Concerns Infection Onset Date Last Indicated Resolved Time COVID19 12/07/2021 12/07/2021 12/17/2021 3:05 AM SAW REPAIRER documented as of this encounter Care Teams Fibrous Plasterer Relationship Specialty Start Date End Date Francisco Long MD PCP - General 02/23/17 05/15/22 Neil Ag MD PhD [address] [place] [address] Radiation Oncologist Radiation Oncology 12/17/18 [place] [address] [facility] [address] [place] [address] Referring Physician General Surgery 12/17/18 [place] [address] [facility] [address] [place] [id number] Medical Oncologist/Shoe Clerk Medical Oncology 12/17/18 [place] [address] [facility] [address] [place] [address] Consulting Physician Gastroenterology 01/07/20 documented as of this encounter
--- OUTSIDE RECORDS SUMMARY | 2024-11-16 12:55 | XMS_ITS | Encounter Summary ---
Author Organization [facility] Address [address] [place] [address] Care Team Providers Care Electromechanical Assembler Name Role Phone Francisco Long MD Primary Care Provider Neil Ag MD PhD Unavailable [phone] Ita Vazquez MD Unavailable Caron Mohan MD Unavailable [phone] Pebbles Felton MD Unavailable [phone] Reason for Visit * Reason Comments COVID-19 EVALUATION Sx onset Monday 12/04, c/o cough, sob. Pt denies any hx of covid virus, fully vaccinated and boosted. Pt states her is covid positive. Encounter Details Date Type Department Care Team (Late st Contact Info) Description 12/07/2021 1:15 PM MECHANICAL ENGINEERING MANAGER Office Visit [facility] [address] [place] [address] Paula Mitchell, MEDICAL RECORDS LIBRARY PROFESSOR [address] [place] [address] COVID-19 virus infection (Primary Dx) Social History Tobacco Use Types [...] on file 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 MECHANICAL ENGINEERING MANAGER Gender Identity Not on file Sexual Orientation Not on file documented as of this encounter Last Filed Vital Signs Vital Sign Reading Time Taken Comments Blood Pressure 126/76 12/07/2021 1:14 PM MECHANICAL ENGINEERING MANAGER Pulse 92 12/07/2021 1:14 PM MECHANICAL ENGINEERING MANAGER Temperature 36.9 ??C (98.4 ??F) 12/07/2021 1:14 PM CS T Respiratory Rate 25 12/07/2021 1:14 PM MECHANICAL ENGINEERING MANAGER Oxygen Saturation 96% 12/07/2021 1:14 PM MECHANICAL ENGINEERING MANAGER Inhaled Oxygen Concentration - - Weight 85.3 kg (188 lb) 12/07/2021 1:14 PM MECHANICAL ENGINEERING MANAGER Height 170.2 cm (5' 7 ) 12/07/2021 1:14 PM MECHANICAL ENGINEERING MANAGER Body Mass Index 29.44 12/07/2021 1:14 PM MECHANICAL ENGINEERING MANAGER documented in this encounter Patient Instructions * Patient Instructions* Paula Mitchell NP - 12/07/2021 1:15 PM MECHANICAL ENGINEERING MANAGER our rapid COVID-19 test was positive today in clinic. CDC recommends you self isolate until at least 5 days have passed since symptom onset. If you have no symptoms or your symptoms are resolving after 5 days, you can leave your house. Continue to wear a mask around others for 5 additional days. If you have a fever, continue to stay home until you have been fever free for 24 hours without the use of fever reducing medications. Please notify all individuals you had close contact with up to 2 days prior to developing symptoms of your Covid infection. The health department is notified of all positive COVID-19 cases and should be in contact with you shortly. Steps to help prevent the spread of COVID-19 if you are sick If you are sick with COVID-19 or think you might have COVID-19, follow the steps below to care for yourself and to help protect other people in your home and community. Stay home except to get medical care ??? Most people with COVID-19 have mild illness and are able to recover at home without medical care. Do not leave your home, except to get medical care. Do not visit public areas. ??? Take care of yourself. Get rest and stay hydrated. Take jkwy-ski-oyczrol medicines to help you feel better. ??? Stay in touch with your doctor. Call before you get medical care. Be sure to get care if you have trouble breathing, or have any other emergency warning signs, or if you think it is an emergency. ??? Avoid using public transportation, ride-sharing, or taxis. Monitor your symptoms People with COVID-19 have had a wide range of symptoms reported - ranging from mild symptoms to severe illness. Symptoms may appear 2-14 days after exposure to the virus. Anyone can have mild to severe symptoms. People with these symptoms may have COVID-19: ??? Symptoms of COVID-19 include fever, cough, shortness of breath or difficulty breathing, fatigue, muscle or body aches, headache, new loss of taste or smell, sore throat, congestion, runny nose, nausea, vomiting, or diarrhea. When to Seek Medical Attention If you develop emergency warning signs for COVID-19 get medical attention immediately. Emergency warning signs include*: ??? Trouble breathing ??? Persistent pain or pressure in the chest ??? New confusion or inability to arouse ??? Bluish lips or face *This list is not all inclusive. Please consult your medical provider for any other symptoms that are severe or concerning. Call 911 if you have a medical emergency: If you have a medical emergency and need to call 911, notify the work car operator that you have or think you might have, COVID-19. If possible, put on a facemask before medical help arrives. Separate yourself from other people in your home, this is known as home isolation ??? As much as possible, stay in a specific room and away from other people and pets in your home. If possible, you should use a separate bathroom. If you need to be around other people or animals inor outside of the home, wear a mask. ??? For more information on sharing close living quarters with someone who is sick visit https://www .cdc.gov/coronavirus/2019-ncov/uphcz-dhkp-jcxxog/nmhlbg-dp-lexdn-quarters.html ??? For more information on COVID-19 and pets visit https://www.cdc.gov/coronavirus/2019-ncov/faq.html Get Tested ??? If you have symptoms of COVID-19, get tested. While waiting for test results, you stay away from others, including staying apart from those living in your household. ??? Self-tests are one of several options for testing for the virus that causes COVID-19 and may bemore convenient than laboratory-based tests and bwkbn-xc-rami tests. Ask your healthcare provider or your local health department if you need help interpreting your test results. ??? You can visit your [facility], [facility], [facility], and the [facility]???s website to look for the latest local information on testing sites. Call ahead before visiting your doctor ??? Many medical visits for routine care are being postponed or done by phone or telemedicine. ??? If you have a medical appointment that cannot be postponed, call your doctor???s office, and tell them you have or may have COVID-19. This will help the office protect themselves and other patients. If you are sick wear a face mask over your nose and mouth in the following situations ??? You should wear a face mask over your nose and mouth if you must be around other people or animals, including pets (even at home). ??? You don't need to wear the face mask if you are alone. If you can't put on a face mask (becauseof trouble breathing, for example), cover your coughs and sneezes in some other way (tissue or inner elbow). Try to stay at least 6 feet away from other people. This will help protect the people around you. ??? Face masks should not be placed on children under 2 years old, anyone who has trouble breathing, or anyone who is not able to remove the covering without help. Cover your coughs and sneezes ??? Cover your mouth and nose with a tissue or the inside of your elbow when you cough or sneeze. ??? Throw used tissues in a lined trash can. ??? Immediately wash your hands with soap and water for at least 20 seconds. If soap and water are not available, clean your hands with an alcohol-based hand rn case management that contains at least 60% alcohol. Clean your hands often ??? Wash your hands often with soap and water for at least 20 seconds. This is especially importantafter blowing your nose, coughing, or sneezing; going to the bathroom; and before eating or preparing food. ??? Use hand rn case management if soap and water are not available. Use an alcohol-based hand rn case management with at least 60% alcohol, covering all surfaces of your hands and rubbing them together until they feel dry. ??? Soap and water are the best option, especially if hands are visibly dirty. ??? Avoid touching your eyes, nose, and mouth especially with unwashed hands. Avoid sharing personal household items ??? Do not share dishes, drinking glasses, cups, eating utensils, towels, or bedding with other people in your home. ??? After using these items, wash them thoroughly with soap and water or put them in the tank builder and erector. Clean all ???high-touch?? surfaces everyday. High-touch surfaces include phones, remote controls, counters, tabletops, doorknobs, bathroom fixtures, toilets, keyboards, tablets, and bedside tables. ??? Clean and disinfect high-touch surfaces in your ???sick room?? and bathroom everyday while wearing disposable gloves. Let someone else clean and disinfect surfaces in common areas, but not your bedroom and bathroom. ??? If a caregiver or other person needs to clean and disinfect a sick person???s bedroom or bathroom, they should do so on an as-needed basis. The caregiver/other person should wear a mask and disposable gloves prior to cleaning.They should wait as long as possible after the sick person has used the bathroom before coming in to clean and use the bathroom. ??? Clean and disinfect areas that may have blood, stool, or body fluids on them. ??? Clean the area or item with soap and water or another detergent if it is dirty. Then, use a household disinfectant. o Be sure to follow the instructions on the label to ensure safe and effective use of the product. Many products recommend keeping the surface wet for several minutes to ensure germs are killed. Manyalso recommend precautions such as wearing gloves and making sure you have good ventilation during use of the product. o Most EPA-registered household disinfectants should be effective. When you can be around others (end home isolation) depends on different factors for different situations. If You Test Positive for COVID-19 Everyone, regardless of vaccination status needs to self isolate: Stay home for 5 days. If you have no symptoms or your symptoms are resolving after 5 days, you can leave your house. Continue to wear a mask around others for 5 additional days. If you have a fever, continue to stay home until you have been fever free for 24 hours without the use of fever reducing medications. If You Were Exposed to Someone with COVID-19 (Quarantine) If you: Have been boosted OR Completed the primary series of Pfizer or Moderna vaccine within the last 6 months OR Completed the primary series of J&J vaccine within the last 2 months Then you: Wear a mask around others for 10 days. Test on day 5, if possible. If you develop symptoms get a test and stay home. If you: Completed the primary series of Pfizer or Moderna vaccine over 6 months ago and are not boosted OR Completed the primary series of J&J over 2 months ago and are not boosted OR Are unvaccinated Then you: Stay home for 5 days. After that continue to wear a mask around others for 5 additional days. If you can???t quarantine you must wear a mask for 10 days. Test on day 5 if possible. If you develop symptoms get a test and stay home COVID-19 Vaccine Information ??? COVID-19 vaccines are safe and effective. ??? Everyone 5 years and older is now eligible to get a free COVID-19 vaccination. ??? CDC is endorsing updated recommendations (Nov 10, 2021) made by the Advisory Committee on Immunization Practices (ACIP) for the prevention of COVID-19, expressing a clinical preference for individuals to receive an mRNA COVID-19 (Pfizer or Moderna) vaccine over Juan & Juan? s COVID-19 vaccine. Learn about the different vaccines available at https://www.cdc.gov/coronavirus/2019-ncov/vaccines/different-vaccines.html Learn about how COVID-19 vaccines work at https://www.cdc.gov/coronavirus/2019-ncov/vaccines/differe nt-vaccines/wid-fmot-ocqu.html Search Move In History.gov, [place] [phone], or call to find COVID-19 vaccine locations near you. The above information is from the CDC website on Nov 21, 2021. Page was last updated: Nov 22, 2021. Additional information and resources about COVID-19 symptoms, testing, self- isolation, how to prevent spread, vaccinations and more are available at: www.cdc.gov/coronavirus ANICAL ENGINEERING MANAGER documented in this encounter Progress Notes * Paula Mitchell NP - 12/07/2021 1:15 PM CST Images from the original note were not included. Patient ID: Jolene Cedillo is a 75 y.o. female followed by Francisco Long MD Patient was wearing the following PPE: mask. MA was wearing the following PPE: mask, gown, gloves and face shield. Provider was wearing the following PPE: mask, gown, gloves and face shield. Chief Complaint Patient presents with ??? COVID-19 EVALUATION Sx onset Monday 12/04, c/o cough, sob. Pt denies any hx of covid virus, fully vaccinated and boosted.Pt states her is covid positive. URI This is a new problem. The current episode started in the past 7 days (12/04/2021). The problem has been gradually improving. There has been no fever. Associated symptoms include congestion, coughing, rhinorrhea and a sore throat. Pertinent negatives include no abdominal pain, chest pain, diarrhea, dysuria, ear pain, headaches, nausea, neck pain, plugged ear sensation, rash, shortness of breath, sneezing, vomiting or wheezing. She has tried OTC cough suppressant (tessalon perles) for the symptoms. The treatment provided no relief. Patient presents to clinic for assessment of Chief Complaint Patient presents with ??? COVID-19 EVALUATION Sx onset Monday 12/04, c/o cough, sob. Pt denies any hx of covid virus, fully vaccinated and boosted.Pt states her is covid positive. . Patient reports DRY COUGH, NASAL CONGESTION and NASAL DRAINAGE Patient reports this has been going on for 3 days. Patient with sick or suspected COVID-19 contacts: Yes Patient has following risks for COVID-19: Patient age over 65, Patient has diabetes with complications, Cardiovascular disease and Hypertension Patient has been fully vaccinated for Covid-19. Last vaccine 08/2021 booster. Patient is retired Patient lives at home with Review of Systems Constitutional: Negative for appetite change, chills, fatigue and fever. HENT: Positive for congestion, rhinorrhea and sore throat. Negative for ear pain, postnasal drip, sneezing and trouble swallowing. Eyes: Negative for pain, discharge, redness and itching. Respiratory: Positive for cough. Negative for chest tightness, shortness of breath and wheezing. Cardiovascular: Negative for chest pain and leg swelling. Gastrointestinal: Negative for abdominal pain, constipation, diarrhea, nausea and vomiting. Genitourinary: Negative for difficulty urinating, dysuria, frequency and urgency. Musculoskeletal: Negative for back pain and neck pain. Skin: Negative for rash and wound. Allergic/Immunologic: Negative for environmental allergies and food allergies. Neurological: Negative for dizziness, weakness and headaches. Current Outpatient Medications Medication Sig Dispense Refill ??? carvediloL (COREG) 6.25 mg tablet TAKE ONE TABLET BY MOUTH TWICE DAILY WITH MEALS 180 tablet 3 ??? cholecalciferol (Vitamin D3) 400 unit capsule 1,000 Units ??? famotidine (PEPCID) 40 mg tablet Take 1 tablet (40 mg total) by mouth daily 90 tablet 3 ??? ferrous sulfate 325 mg (65 mg of elemental iron) tablet Take 1 tablet (325 mg total) by mouth daily with breakfast 30 tablet 11 ??? letrozole (FEMARA) 2.5 mg tablet Take 2.5 mg by mouth daily ??? methotrexate 2.5 mg tablet Take 2.5 mg by mouth every 7 days Takes 6 tablets every Sunday ??? pantoprazole DR (PROTONIX) 40 mg EC tablet Take 1 tablet (40 mg total) by mouth daily 30 [id number] ??? rosuvastatin (CRESTOR) 5 mg tablet Take 1 tablet (5 mg total) by mouth daily 30 tablet 11 ??? white petrolatum-mineral oil (white petrolatum-mineral oiL) ointment Apply 1 application to left eye 2 (two) times a day 3.5 g 0 ??? losartan (COZAAR) 100 mg tablet TAKE 1 TABLET BY MOUTH EVERY DAY 90 tablet 3 No current facility-administered medications for this visit. Past Medical History: Diagnosis Date ??? Anemia ??? GERD (gastroesophageal reflux disease) ??? HX OTHER MEDICAL B/L arthroscopic knee surg ??? HX OTHER MEDICAL RA ??? HX OTHER MEDICAL R knee replacement ??? HX OTHER MEDICAL blood clot- right leg ??? Hyperlipidemia Hyperlipidemia ??? Hypertension Hypertension ??? Screening mammogram, encounter for 1945 ??? Uterine cancer (CMS/HCC) (HCC) 04/2018 Immunization History Administered Date(s) Administered ??? Influenza, Quadrivalent, High Dose, Preservative Free, Intrr 11/01/2020 ??? Influenza, Trivalent, High Dose, Split, Preservative Free, Intramuscular 12/24/2017, 09/13/2018, 09/25/2019 ??? Pfizer SARS-CoV-2 Vaccination (12+ yrs) PURPLE 01/26/2021, 02/23/2021, 09/25/2021 ??? Pneumococcal Conjugate PCV 13 12/17/2018 ??? Tdap 09/13/2018 Social History Tobacco Use Smoking Status Never Smoker Smokeless Tobacco Never Used Vitals: 12/07/21 1314 BP: 126/76 BP Location: Left arm Patient Position: Sitting Pulse: 92 Resp: 25 Temp: 36.9 ??C (98.4 ??F) TempSrc: Oral SpO2: 96% Weight: 85.3 kg (188 lb) Height: 170.2 cm (5' 7 ) Physical Exam Vitals and nursing note reviewed. Constitutional: General: She is awake. Appearance: Normal appearance. She is well-developed, well-groomed and overweight. HENT: Head: Normocephalic and atraumatic. Right Ear: Tympanic membrane and external ear normal. Left Ear: Tympanic membrane and external ear normal. Nose: Nose normal. Mouth/Throat: Lips: [place]. Mouth: Mucous membranes are moist. Pharynx: Oropharynx is clear. Eyes: General: Lids are normal. Conjunctiva/sclera: Conjunctivae normal. Pupils: Pupils are equal, round, and reactive to light. Cardiovascular: Rate and Rhythm: Normal rate and regular rhythm. Pulmonary: Effort: Pulmonary effort is normal. Breath sounds: Normal breath sounds. No wheezing. Abdominal: General: Bowel sounds are normal. Palpations: Abdomen is soft. Musculoskeletal: General: Normal range of motion. Cervical back: Normal range of motion and neck supple. Skin: General: Skin is warm and dry. Capillary Refill: Capillary refill takes less than 2 seconds. Neurological: Mental Status: She is alert and oriented to person, place, and time. Psychiatric: Behavior: Behavior normal. Behavior is cooperative. Assessment/Plan Diagnoses and all orders for this visit: COVID-19 virus infection (Primary) - POC Influenza A/B, COVID-19 antigen -Due to mab therapy capacity constraints, patient is not eligible for mAb therapy. Patient advised to contact PCP for alternative treaments and follow up. Results for orders placed or performed in visit on 12/07/21 POC Influenza A/B, COVID-19 antigen Result Value Ref Range Inflenza A Ag, POC Negative Influenza B Ag, POC Negative COVID-19 Ag POC Positive (A) Presumptive Negative, Invalid Discussed COVID testing reasoning Reviewed isolation/quarantine protocols Discussed symptomatic relief of symptoms Discussed need to return to ER for further evaluation including worsening fevers, shortness of breath, of other concerning symptoms Advised to rest and stay adequately hydrated Orders Placed This Encounter Procedures ??? POC Influenza A/B, COVID-19 antigen Order Specific Question: Is the Patient experiencing symptoms consistent with COVID? Answer: Yes Order Specific Question: Date of Symptom Onset Answer: 12/04/2021 Order Specific Question: Is the patient hospitalized? Answer: No Order Specific Question: Is the patient admitted to an ICU? Answer: No Order Specific Question: Is this the first COVID-19 test for this patient? Answer: No Order Specific Question: Does the patient currently work in a healthcare facility with direct patient contact? Answer: No Order Specific Question: Is the patient a resident of a congregate care or living setting? Answer: No Order Specific Question: ? Answer: No Paula Mitchell NP ANICAL ENGINEERING MANAGER documented in this encounter Plan of Treatment Not on file documented as of this encounter Procedures Procedure Name Priority Date/Time Associated Diagnosis Comments POC INFLUENZA A/B, COVID-19 ANTIGEN Routine 12/07/2021 1:26 PM MECHANICAL ENGINEERING MANAGER COVID-19 virus infection documented in this encounter Results * (ABNORMAL) POC Influenza A/B, COVID-19 antigen (12/07/2021 1:26 PM MECHANICAL ENGINEERING MANAGER) Pathologist [facility] Influenza A Ag, POC Negative [facility] Influenza B Ag, POC Negative [facility] COVID-19 Ag POC Positive(A) Presumptive Negative, Invalid [facility] Nasal 12/07/2021 1:26 PM MECHANICAL ENGINEERING MANAGER Paula Mitchell MEDICAL RECORDS LIBRARY PROFESSOR POINT OF CARE TEST ORDERABLES Final Result [facility] [address] [place] [address] documented in this encounter Visit Diagnoses Diagnosis COVID-19 virus infection- Primary documented in this encounter Additional Health Concerns Infection Onset Date Last Indicated Resolved Time COVID: Suspected 12/07/2021 12/07/2021 12/07/2021 1:26 PM MECHANICAL ENGINEERING MANAGER COVID19 12/07/2021 12/07/2021 12/17/2021 3:05 AM MECHANICAL ENGINEERING MANAGER documented as of this encounter Care Teams Electromechanical Assembler Relationship Specialty Start Date End Date Francisco Long MD PCP - General 02/23/17 05/15/22 Neil Ag MD PhD [address] [place] [id number] Radiation Oncologist Radiation Oncology 12/17/18 [place] [address] [facility] [address] [place] [address] Referring Physician General Surgery 12/17/18 [place] [id number] [address] Medical Oncologist/Can Line Examiner Medical Oncology 12/17/18 [place] [id number] [address] Consulting Physician Gastroenterology 01/07/20 documented as of this encounter
--- OUTSIDE RECORDS SUMMARY | 2024-11-16 12:55 | XMS_ITS | Encounter Summary ---
Author Organization [facility] Medical Group Address [address] [place] [address] Care Team Providers Care Boiler Room Operator Name Role Phone Francisco Long MD Primary Care Provider [phone] Neil Ag MD PhD Unavailable [phone] Ita estrada MD Unavailable Caron Mohan MD Unavailable Pebbles Felton MD Unavailable [phone] Encounter Details Date Type Department Care Team (Late st Contact Info) Description 09/28/2021 Orders Only [facility] 2 [facility] [address] [place] [address] Francisco Long MD [address] [place] [address] [address] [place] [address] Essential hypertension (Primary Dx); Iron deficiency anemia, unspecified iron deficiency anemia type; Encounter for therapeutic drug monitoring Social History Tobacco Use Types Packs/Day Years [...] on file 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 Gender Identity Not on file Sexual Orientation Not on file documented as of this encounter Plan of Treatment Not on file documented as of this encounter Procedures Procedure Name Priority Date/Time Associated Diagnosis Comments IRON PROFILE W/ IBC Routine 03/14/2022 8 :21 AM CDT Essential hypertension Iron deficiency anemia, unspecified iron deficiency anemia type Encounter for therapeutic drug monitoring CBC WITH AUTO DIFFERENTIAL Routine 03/14/2022 8:21 AM CDT Essential hypertension Iron deficiency anemia, unspecified iron deficiency anemia type Encounter for therapeutic drug monitoring BASIC METABOLIC PANEL Routine 03/14/2022 8:21 AM CDT Essential hypertension Iron deficiency anemia, unspecified iron deficiency anemia type Encounter for therapeutic drug monitoring documented in this encounter Results * (ABNORMAL) Basic metabolic panel (03/14/2022 8:21 AM CDT) [facility] Glucose 141(H) 65 - 99 mg/dL [facility] Comment: ? Fasting reference interval For someone without known diabetes, a glucose value >125 mg/dL indicates that they may have diabetes and this should be confirmed with a follow-up test. BUN 17 7 - 25 mg/dL [facility] Creatinine 0.78 0.60 - 0.93 mg/dL [facility] Comment: For patients >49 years of age, the reference limit for Creatinine is approximately 13% higher for people identified as -Algerian. eGFR NON-AFR. TURKMEN 74 > OR = 60 mL/min/1 .73m2 [facility] EGFR 86 > OR = 60 mL/min/1 .73m2 [facility] BUN/creat ratio NOT APPLICABLE 6 - 22 (calc) [facility] Sodium 139 135 - 146 mmol/L [facility] Potassium, pl 4.9 3.5 - 5.3 mmol/L [facility] Chloride 102 98 - 110 mmol/L [facility] CO2 29 20 - 32 mmol/L [facility] Calcium 9.0 8.6 - 10.4 mg/dL [facility] Blood specimen (specimen) 03/14/2022 8:21 AM CDT 03/14/2022 8:22 AM CDT Francisco Long MD LAB BLOOD ORDERABLES Final Res ult Performing Organization Address [facility] de Phone Number QUEST [facility] [address] [place] [address] * (ABNORMAL) Iron profile w/ IBC (03/14/2022 8:21 AM CDT) [facility] Iron 56 45 - 160 mcg/dL [facility] TIBC 426 250 - 450 mcg/dL (calc) [facility] Iron saturation 13(L) 16 - 45 % (calc) [facility] Blood specimen (specimen) 03/14/2022 8:21 AM CDT 03/14/2022 8:22 AM CDT Francisco Long MD LAB BLOOD ORDERABLES Final Res ult Performing Organization Address [facility] de Phone Number QUEST [facility] [address] [place] [address] * (ABNORMAL) CBC with auto differential (03/14/2022 8:21 AM CDT) [facility] WBC 6.1 3.8 - 10.8 Thousand/u L [facility] RBC, POC 5.62(H) 3.80 - 5.10 Million/uL [facility] Hgb 12.2 11.7 - 15.5 g/dL [facility] Hct 41.3 35.0 - 45.0 % [facility] MCV 73.5(L) 80.0 - 100.0 fL [facility] MCH 21.7(L) 27.0 - 33.0 pg [facility] MCHC 29.5(L) 32.0 - 36.0 g/dL [facility] Rdw 18.5(H) 11.0 - 15.0 % [facility] Platelets 230 140 - 400 Thousand/u L [facility] MPV 10.7 7.5 - 12.5 fL [facility] Neutrophils, abs 4,929 1,500 - 7,800 cells/uL [facility] Lymphocytes, abs 555(L) 850 - 3,900 cells/uL [facility] Monocyte abs 390 200 - 950 cells/uL [facility] Eosinophils, abs 183 15 - 500 cells/uL [facility] Basophils, abs 43 0 - 200 cells/uL [facility] Neutrophils 80.8 % [facility] Lymphocyte pct 9.1 % [facility] Monocytes 6.4 % [facility] Eosinophils 3.0 % [facility] Basophils 0.7 % [facility] Blood specimen (specimen) 03/14/2022 8:21 AM CDT 03/14/2022 8:22 AM CDT Francisco Long MD LAB BLOOD ORDERABLES Final Res ult [facility] [address] [place] [address] documented in this encounter Visit Diagnoses Diagnosis Essential hypertension- Primary Unspecified essential hypertension Iron deficiency anemia, unspecified iron deficiency anemia type Encounter for therapeutic drug monitoring documented in this encounter Care Teams Boiler Room Operator Relationship Specialty Start Date End Date Francisoc Long MD PCP - General 02/23/17 05/15/22 Neil Ag MD PhD [address] [place] [address] Radiation Oncologist Radiation Oncology 12/17/18 [place] [address] [facility] [address] [facility] [place] [id number] Referring Physician General Surgery 12/17/18 [place] [address] [facility] [address] [facility] [place] [id number] Medical Oncologist/Video Games Mechanic Medical Oncology 12/17/18 [place] [address] [facility] [address] [place] [id number] Consulting Physician Gastroenterology 01/07/20 documented as of this encounter
--- OUTSIDE RECORDS SUMMARY | 2024-11-16 12:56 | XMS_ITS | Encounter Summary ---
Author Organization [facility] Medical Group Address [address] [facility] [address] [place] [address] Care Team Providers Care Chronic Condition Nurse Name Role Phone Francisco Long MD Primary Care Provider [phone] Neil Ag MD PhD Unavailable [phone] Ita Vazquez MD Unavailable Caron Mohan MD Unavailable Pebbles Felton MD Unavailable [phone] Reason for Visit * Reason Comments Medicare Annual Wellness Visit Segundo g[facility] Encounter Details Date Type Department Care Team (Late st Contact Info) Description 09/28/2021 9:00 AM CDT Office Visit [facility] [address] [facility] [address] [place] [address] Francisco Long MD [address] [place] [address] [address] [place] [address] Medicare annual wellness visit, subsequent (Primary Dx); Overweight with body mass index [...] on file 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 Gender Identity Not on file Sexual Orientation Not on file documented as of this encounter Last Filed Vital Signs Vital Sign Reading Time Taken Comments Blood Pressure 120/80 09/28/2021 8:50 AM CDT Pulse 60 09/28/2021 8:50 AM CDT Temperature - - Respiratory Rate 20 09/28/2021 8:50 AM CDT Oxygen Saturation - - Inhaled Oxygen Concentration - - Weight 85.3 kg (188 lb) 09/28/2021 8:50 AM CDT Height 170.2 cm (5' 7 ) 09/28/2021 8:50 AM CDT Body Mass Index 29.44 09/28/2021 8:50 AM CDT documented in this encounter Progress Notes * Francisco Long MD - 09/28/2021 9:00 AM CDT Subjective/Objective Patient ID: Jolene Cedillo is a 75 y.o. female. Chief Complaint Medicare Annual Wellness Visit Subsequent (MCW) HPI 75-year-old white female returns today for her annual well examination she states she thinks her health is very good she has no cognitive decline she has no trouble with reading riding arithmetic no trouble with directions she has no depression anxiety she states her [place] is getting his carpal tunnel done tomorrow The patient's sees her oncologist on a regular basis for breast cancer history she had radiation therapy only for the breast cancer she does have a history uterine cancer had hysterectomy only and follows up with OBGYN on regular basis as well as her security consultant Dawna Murray on a regular basisas well She had a colonoscopy in December 2019 total come back in 3 years she gets a bone density every 2 years mammogram each year does self-breast examination monthly her hemoglobin is down to 9.3 she quittaking her iron pills about 2 3 months ago her hemoglobin level 3 months ago was 12.1 iron level was good in her iron level is low again she has had no black stools no hematochezia She does see eye doctor as well for diabetic eye examination she had hepatitis C checked in April 2017 which was negative Patient is going to get a flu shot pneumonia 23 vaccine next week at the drugstore she is going to get her booster vaccine are I should say she had her booster vaccine this past Sunday so she will get the 23 and the flu shot at the pharmacy later this month Her health risk assessment will be copied in the electronic medical record Patient has a history of hypertension rheumatoid arthritis diabetes hyperlipidemia breast cancer with radiation therapy history of uterine cancer with hysterectomy history of total right knee replacement history of deep venous thrombosis following bilateral arthroscopic knee surgery history of cataract surgery left total knee replacement breast lung back to me with radiation therapy She has never been a smoker drinks alcohol rarely She has been to [place] for 40 years 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 no children her is a mazariegos Review of Systems Review of Systems neurological no headaches no syncope no seizure visual changes or paresthesias cardio no chest pain palpitations or exertional symptoms pulmonary no shortness of breath cough wheeze hemoptysis GI no melena no hematochezia pain nausea change in stools genitourinary no dysuria hematuria pain or change in habits musculoskeletal no joint swelling deformity muscle pain or weakness psych no anxiety depression or suicide ideation hematological no bleeding or bruising Vitals: 09/28/21 0850 BP: 120/80 BP Location: Left arm Patient Position: Sitting Pulse: 60 Resp: 20 Weight: 85.3 kg (188 lb) Height: 170.2 cm (5' 7 ) Physical Exam HEAD: normocephalic and atraumatic the pupils are equal round and reactive to light accommodation EOMI fundi and TMs are normal tongue and uvula is midline NECK: supple without bruits, adenopathy, masses or JVD there is no thyromegaly or nodules CARDIO: S1-S2 without murmurs gallops clicks or rubs THORAX : clear to a and P no rales rhonchi or wheezes no axillary adenopathy ABDOMEN : soft and nontender with normal bowel sounds no enlargement of liver spleen there is no bruits or masses EXTREMITIES: no edema or cyanosis with good pulses throughout full range of motion throughout NEURO : cranial nerves 2-12 were intact muscle strength is 5 5 throughout DTRs are 2/4 throughout toe signs are downgoing gait normal SKIN no suspicious lesions ecchymosis or petechiae Assessment/Plan Diagnoses and all orders for this visit: Medicare annual wellness visit, subsequent (Primary) Keep her immunizations up-to-date continue mammograms yearly bone density testing every 2 years colonoscopy as directed see back in 6 months Overweight with body mass Encouraged little more exercise on a regular basis recommend carb counting and daily walk Essential hypertension good control with current regimen continue same Iron deficiency anemia secondary to inadequate dietary iron intake patient will resume her iron supplementation daily recheck lab work CBC iron profile BMP before next visit Side effects, risks, interactions reviewed with patient. [...] Diagnosis Medicare annual wellness visit, subsequent- Primary Overweight with body mass index (BMI) of 29 to 29.9 in adult Essential hypertension Unspecified essential hypertension Iron deficiency anemia secondary to inadequate dietary iron intake documented in this encounter Care Teams Chronic Condition Nurse Relationship Specialty Start Date End Date Francisco Long MD PCP - General 02/23/17 05/15/22 Neil Ag MD PhD 6 [place] [address] Radiation Oncologist Radiation Oncology 12/17/18 [place] [address] [facility] [address] [place] [address] Referring Physician General Surgery 12/17/18 [place] [address] [facility] [address] [place] [address] Medical Oncologist/Machinist Mechanic Medical Oncology 12/17/18 [place] [address] [facility] [address] [place] [address] Consulting Physician Gastroenterology 01/07/20 documented as of this encounter
--- OUTSIDE RECORDS SUMMARY | 2024-11-16 12:56 | XMS_ITS | Encounter Summary ---
Author Organization [facility] Medical Group Address [address] [facility] [address] [place] [address] Care Team Providers Care Stencil Typist Name Role Phone Francisco Long MD Primary Care Provider Neil gA MD PhD Unavailable [phone] Ita estrada MD Unavailable Caron Mohan MD Unavailable Pebbles Felton MD Unavailable [phone] Yamileth Meade MA Unavailable [phone] Encounter Details Date Type Department Care Team (Late st Contact Info) Description 04/26/2021 Telephone [facility] 2 [facility] [address] [place] [address] Francisco Long MD [address] [place] [address] [address] [place], [place] [id number] Social History Tobacco Use Types Packs/Day Years [...] points, staff should administer the PHQ-9) 0 04/26/2021 Hunger Vital Sign Answer Date Recorded Worried [...] on file 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 * Telephone Encounter - Francisco Long MD - 04/26/2021 6:55 AM CDT Have patient see me today for follow-up of her ER visit documented in this encounter Plan of Treatment Not on file documented as of this encounter Visit Diagnoses Not on filedocumented in this encounter Care Teams Stencil Typist Relationship Specialty Start Date End Date Francisco Long MD PCP - General 02/23/17 05/15/22 Neil Ag MD PhD 6 [place] [address] Radiation Oncologist Radiation Oncology 12/17/18 [place] [address] [address] [place] [address] Referring Physician General Surgery 12/17/18 [place] [address] [address] [facility] [address] [address] [place] [address] Medical Oncologist/Health Safety Specialist Medical Oncology 12/17/18 [place] [address] [address] [facility] [address] [place] [address] Consulting Physician Gastroenterology 01/07/20 Yamileth Meade MA [address] [place] [address] [address] [place] [address] ACO Care Improvement Spec 04/26/21 04/26/21 documented as of this encounter
--- OUTSIDE RECORDS SUMMARY | 2024-11-16 12:56 | XMS_ITS | Encounter Summary ---
Author Organization [facility] Medical Group Address [address] [facility] [address] [place] [address] Care Team Providers Care Wood Block Artist Name Role Phone Francisco Long MD Primary Care Provider [phone] Neil Ag MD PhD Unavailable [phone] Ita estrada MD Unavailable Caron Mohan MD Unavailable Pebbles Felton MD Unavailable [phone] Encounter Details Date Type Department Care Team (Late st Contact Info) Description 02/01/2021 Telephone [facility] [place] [facility] 2 [facility] [address] [place] [address] Francisco Long MD [address] [place] [address] [address] [place] [address] Social History Tobacco Use Types [...] points, staff should administer the PHQ-9) 0 01/21/2021 Hunger Vital Sign Answer Date Recorded Worried About Running Out of Food in the Last Ye ar Never true 12/05/2019 Ran Out of Food in the Last Year Never true 12/05/2019 PRAPARE - Transportation Answer Date Re corded Lack of Transportation (Medical) No 12/05/2019 Lack of Transportation (Non-Medical) No 12/05/2019 Comments Unknown Sex and Gender Information Value Date Recorded Sex Assigned at Not on file 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 HANDISE FLOW MANAGER * Telephone Encounter - Winter Martinez MA - 02/01/2021 8:30 AM CST lmom making pt aware HANDISE FLOW MANAGER * Telephone Encounter - Winter Martinez MA - 02/01/2021 8:30 AM CST ----- Message from Francisco Long MD sent at 02/01/2021 6:37 AM MERCHANDISE FLOW MANAGER ----- Okay to leave a message hemoglobin up to 10.3 good news HANDISE FLOW MANAGER documented in this encounter Plan of Treatment Not on file documented as of this encounter Visit Diagnoses Not on filedocumented in this encounter Care Teams Wood Block Artist Relationship Specialty Start Date End Date Francisco Long MD PCP - General 02/23/17 05/15/22 Neil Ag MD PhD 6 [place] [address] Radiation Oncologist Radiation Oncology 12/17/18 [place] [address] [address] Referring Physician General Surgery 12/17/18 [place] [address] [address] Medical Oncologist/Emissions Testing And Repair Technician Medical Oncology 12/17/18 [place] [address] [address] Consulting Physician Gastroenterology 01/07/20 documented as of this encounter
--- OUTSIDE RECORDS SUMMARY | 2024-11-16 12:56 | XMS_ITS | Encounter Summary ---
Author Organization [facility] Medical Group Address [address] [facility] [address] [place] [address] Care Team Providers Care Certified Technician Specialist Name Role Phone Francisco Long MD Primary Care Provider [phone] Neil Ag MD PhD Unavailable [phone] Ita estrada MD Unavailable Caron Mohan MD Unavailable Pebbles Felton MD Unavailable [phone] Encounter Details Date Type Department Care Team (Late st Contact Info) Description 03/21/2021 Telephone [facility] 2 [facility] [address] [place] [address] Francisco Long MD [address] [place] [address] [address] [place] [address] Social History Tobacco Use Types [...] points, staff should administer the PHQ-9) 0 03/09/2021 Hunger Vital Sign Answer Date Recorded Worried [...] on file 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 * Telephone Encounter - Francisco Long MD - 03/21/2021 9:12 AM CDT No other labs needed * Telephone Encounter - Latoya Cotton MA - 03/21/2021 9:09 AM CDT jr * Telephone Encounter - Cricket Knowles - 03/21/2021 8:56 AM CDT Pt called asking what labs she needed before 04/21/21 appt 2 month recheck. I placed order today foriron panel and cbc per JR in 03/09/21 check out notes. He mentioned to make sure they were added to future labs due before NOV but I do not see any other labs ordered. Is pt supposed to have anything else done besides iron and cbc? [facility]. Please advise. documented in this encounter Plan of Treatment Not on file documented as of this encounter Visit Diagnoses Not on filedocumented in this encounter Care Teams Certified Technician Specialist Relationship Specialty Start Date End Date Francisco Long MD PCP - General 02/23/17 05/15/22 Neil Ag MD PhD [address] [place] [address] Radiation Oncologist Radiation Oncology 12/17/18 [place] [address] [address] [address] [place], [place] [id number] Referring Physician General Surgery 12/17/18 [place] [address] [address] [address] [place] [address] Medical Oncologist/Produce Department Supervisor Medical Oncology 12/17/18 [place] [address] [address] [address] [place] [address] Consulting Physician Gastroenterology 01/07/20 documented as of this encounter
--- OUTSIDE RECORDS SUMMARY | 2024-11-16 12:56 | XMS_ITS | Encounter Summary ---
Author Organization [facility] Medical Group Address [address] [facility] [address] [place] [address] Care Team Providers Care Testing Machine Operator Name Role Phone Francisco Long MD Primary Care Provider [phone] Neil Ag MD PhD Unavailable [phone] Ita estrada MD Unavailable Caron Mohan MD Unavailable [phone] Pebbles Felton MD Unavailable [phone] Encounter Details Date Type Department Care Team (Late st Contact Info) Description 02/02/2021 Orders Only [place] [facility] 2 [facility] [address] [place] [address] Francisco Long MD [address] [place] [address] [address] [place] [address] Social History Tobacco Use Types [...] on file 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 Gender Identity Not on file Sexual Orientation Not on file documented as of this encounter Plan of Treatment Not on file documented as of this encounter Visit Diagnoses Not on filedocumented in this encounter Care Teams Testing Machine Operator Relationship Specialty Start Date End Date Francisco Long MD PCP - General 02/23/17 05/15/22 Neil Ag MD PhD 6 [place] [address] Radiation Oncologist Radiation Oncology 12/17/18 [place] [address] [facility] [address] [employer], [place] [id number] Referring Physician General Surgery 12/17/18 [place] [address] [facility] [address] [place], [place] [id number] Medical Oncologist/Bag Printer Medical Oncology 12/17/18 [place] [address] [facility] [address] [place], [place] [id number] Consulting Physician Gastroenterology 01/07/20 documented as of this encounter
--- OUTSIDE RECORDS SUMMARY | 2024-11-16 12:56 | XMS_ITS | Encounter Summary ---
Author Organization [facility] Medical Group Address [address] [facility] [address] [place] [address] Care Team Providers Care Business Development Recruiter Name Role Phone Francisco Long MD Primary Care Provider [phone] Neil Ag MD PhD Unavailable [phone] Ita estrada MD Unavailable Caron Mohan MD Unavailable Pebbles Felton MD Unavailable [phone] Encounter Details Date Type Department Care Team (Late st Contact Info) Description 03/11/2021 Orders Only [place] [facility] 2 [facility] [address] [place] [address] Larry Wetzel PA 2 [facility] [address] [place] [address] Hiatal hernia (Primary Dx) Social History Tobacco Use Types [...] on file 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 Gender Identity Not on file Sexual Orientation Not on file documented as of this encounter Plan of Treatment Not on file documented as of this encounter Visit Diagnoses Diagnosis Hiatal hernia- Primary Diaphragmatic hernia without mention of obstruction or gangrene documented in this encounter Care Teams Business Development Recruiter Relationship Specialty Start Date End Date Francisco Long MD PCP - General 02/23/17 05/15/22 Neil gA MD PhD 6 [place] [address] Radiation Oncologist Radiation Oncology 12/17/18 [place] [address] [facility] [address] [place], [place] [id number] Referring Physician General Surgery 12/17/18 [place] [address] [facility] [address] [place], [place] [id number] Medical Oncologist/Bathhouse Keeper Medical Oncology 12/17/18 [place] [address] [facility] [address] [place], [place] [id number] Consulting Physician Gastroenterology 01/07/20 documented as of this encounter
--- OUTSIDE RECORDS SUMMARY | 2024-11-16 12:56 | XMS_ITS | Encounter Summary ---
Author Organization [facility] Address [address] [facility] [address] [place] [address] Care Team Providers Care Software Publisher Name Role Phone Francisco Long MD Primary Care Provider [phone] Neil Ag MD PhD Unavailable [phone] Ita Vazquez MD Unavailable Caron Mohan MD Unavailable Pebbles Felton MD Unavailable [phone] Reason for Visit * Reason Comments Hypertension Anemia Encounter Details Date Type Department Care Team (Late st Contact Info) Description 04/21/2021 10:15 AM CDT Office Visit [facility] [address] [facility] [address] [place] [address] Francisco Long MD [address] [place] [address] [address] [place] [address] Essential hypertension (Primary Dx); Body mass index (BMI) 28.0-28.9, adult; Mixed hyperlipidemia Social History Tobacco Use Types Packs/Day Years [...] points, staff should administer the PHQ-9) 0 04/21/2021 Hunger Vital Sign Answer Date Recorded Worried [...] on file 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 Gender Identity Not on file Sexual Orientation Not on file documented as of this encounter Last Filed Vital Signs Vital Sign Reading Time Taken Comments Blood Pressure 140/70 04/21/2021 10:32 AM CDT Pulse 64 04/21/2021 10:32 AM CDT Temperature - - Respiratory Rate 20 04/21/2021 10:32 AM CDT Oxygen Saturation - - Inhaled Oxygen Concentration - - Weight 83.9 kg (185 lb) 04/21/2021 10:32 AM CDT Height 170.2 cm (5' 7 ) 04/21/2021 10:32 AM CDT Body Mass Index 28.98 04/21/2021 10:32 AM CDT documented in this encounter Progress Notes * Francisco Long MD - 04/21/2021 10:15 AM CDT Subjective/Objective Patient ID: Jolene Cedillo is a 75 y.o. female. Chief Complaint Hypertension and Anemia HPI 75-year-old seen today follow-up high blood pressure anemia her anemia is resolved her hemoglobin is back to normal she is back on methotrexate for her rheumatoid arthritis. 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 She had no travel history or surgical history on the pulmonary embolus that she had this past winter Review of Systems Vitals: 04/21/21 1032 BP: 140/70 BP Location: Right arm Patient Position: Sitting Pulse: 64 Resp: 20 Weight: 83.9 kg (185 lb) Height: 170.2 cm (5' 7 ) Physical Exam She is pleasant no distress the nose those remarkable neck is supple lungs clear abdomen soft nontender Assessment/Plan Diagnoses and all orders for this visit: Essential hypertension (Primary) Body mass index (BMI) 28.0-28.9, adult Mixed hyperlipidemia Blood pressure is doing okay cholesterol is doing okay anemia has resolved the patient understands not to cross her legs if she develops any shortness of breath chest pain her swelling in the either leg she has to go to the emergency room immediately for urgent evaluation to rule out recurrent deepvenous thrombosis or pulmonary embolus Side effects, risks, interactions reviewed with patient. [...] as of this encounter Visit Diagnoses Diagnosis Essential hypertension- Primary Unspecified essential hypertension Body mass index (BMI) 28.0-28.9, adult Mixed hyperlipidemia documented in this encounter Discontinued Medications Medication Sig Discontinue Reason Start Date End Da te predniSONE (DELTASONE) 10 mg tablet Take 10 mg by mouth 4 (four) times a day 03/28/2021 04/21/2021 documented as of this encounter Historical Medications * This list may reflect changes made after this encounter. predniSONE (DELTASONE) 10 mg tablet Take 10 mg by mouth 4 (four) times a day 03/28/2021 04/21/2021 added in this encounter Care Teams Software Publisher Relationship Specialty Start Date End Date Francisco Long MD PCP - General 02/23/17 05/15/22 Neil Ag MD PhD [address] [place] [address] Radiation Oncologist Radiation Oncology 12/17/18 [place] [address] [id number] Referring Physician General Surgery 12/17/18 [place] [address] [id number] Medical Oncologist/Medication Specialist Medical Oncology 12/17/18 [place] [address] [id number] Consulting Physician Gastroenterology 01/07/20 documented as of this encounter
--- OUTSIDE RECORDS SUMMARY | 2024-11-16 12:56 | XMS_ITS | Encounter Summary ---
Author Organization [facility] Address [address] [facility] [address] [place] [address] Care Team Providers Care Religion Professor Name Role Phone Francisco Long MD Primary Care Provider [phone] Neil Ag MD PhD Unavailable [phone] Ita estrada MD Unavailable Caron Mohan MD Unavailable [phone] Pebbles Felton MD Unavailable [phone] Encounter Details Date Type Department Care Team (Late st Contact Info) Description 03/09/2021 Telephone [facility] [address] [facility] [address] [place] [address] Francisco Long MD [address] [place] [address] [address] [place] [address] Social History Tobacco Use Types [...] on file 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 It actually went away. She wanted Stephanie to know. documented in this encounter Plan of Treatment Not on file documented as of this encounter Visit Diagnoses Not on filedocumented in this encounter Care Teams Religion Professor Relationship Specialty Start Date End Date Francisco Long MD PCP - General 02/23/17 05/15/22 Neil Ag MD PhD [address] [place] [address] Radiation Oncologist Radiation Oncology 12/17/18 [place] [address] [address] [facility] [address] [place] [address] Referring Physician General Surgery 12/17/18 [place] [address] [address] [facility] [address] [place] [address] Medical Oncologist/Registered Nurse Ambulatory Medical Oncology 12/17/18 [place] [address] [address] [facility] [address] [place] [address] Consulting Physician Gastroenterology 01/07/20 documented as of this encounter
--- OUTSIDE RECORDS SUMMARY | 2024-11-16 12:56 | XMS_ITS | Encounter Summary ---
Author Organization [facility] Address [address] [place] [address] Care Team Providers Care Re Examiner Name Role Phone Francisco Long MD Primary Care Provider [phone] Neil Ag MD PhD Unavailable [phone] Ita Vazquez MD Unavailable Caron Mohan MD Unavailable Pebbles Felton MD Unavailable [phone] Mariangel Quiñonez MD Primary Care Provide r Encounter Details Date Type Department Care Team (Late st Contact Info) Description 06/27/2021 Telephone [facility] [address] [place] [address] Beverly Sosa, RT Social History Tobacco Use Types Packs/Day Years [...] points, staff should administer the PHQ-9) 0 05/26/2021 Hunger Vital Sign Answer Date Recorded Worried [...] file 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 12/17/2021 03/02/2022 04/16/2022 3:05 AM C DT COVID: Suspected 12/08/2022 12/08/2022 12/08/2022 11:08 AM TECHNICAL TRAINING COORDINATOR COVID19 12/08/2022 12/08/2022 12/18/2022 3:05 AM TECHNICAL TRAINING COORDINATOR COVID: Recovered Comment:Added based on recent COVID infection. 12/18/2022 02/11/2023 03/18/2023 3:06 AM C DT documented as of this encounter Care Teams Re Examiner Relationship Specialty Start Date End Date Francisco Long MD PCP - General 02/23/17 05/15/22 Mariangel Quiñonez MD [address] [address] PCP - General Family Medicine 05/16/22 Neil Ag MD PhD [address] [place] [address] Radiation Oncologist Radiation Oncology 12/17/18 [place] [address] [facility] [address] [place] [address] Referring Physician General Surgery 12/17/18 [place] [address] [facility] [address] [place] [address] Medical Oncologist/Office Coordinator Receptionist Medical Oncology 12/17/18 [place] [address] [facility] [address] [place] [address] Consulting Physician Gastroenterology 01/07/20 documented as of this encounter
--- OUTSIDE RECORDS SUMMARY | 2024-11-16 12:56 | XMS_ITS | Encounter Summary ---
Author Organization [facility] Address [address] [place] [address] Care Team Providers Care Metal Painter Name Role Phone Francisco Long MD Primary Care Provider [phone] Neil Ag MD PhD Unavailable [phone] Ita Vazquez MD Unavailable Caron Mohan MD Unavailable [phone] Pebbles Felton MD Unavailable [phone] Reason for Visit * Reason Comments OP Infusion Venofer * Episode Based Medications (Routine) - Closed Specialty Diagnoses / Procedures Referred By Contac t Referred To Contact Diagnoses Iron deficiency anemia due to chronic blood loss Francisco Long MD [address] [place] [address] Phone: tel: fax: [facility] [address] [place] [address] [place] [address] Phone: tel: Referral ID Status Reason Start Date Expiration Date Visits Re quested Visits Authorized [id number] Closed 01/04/2021 02/03/2022 1 1 Encounter Details Date Type Department Care Team (Late st Contact Info) Description 02/04/2021 10:30 AM VOLLEYBALL PLAYER Infusion [facility] [address] [facility] [address] [place] [address] Francisco Long MD [address] [place] [address] [address] [place] [id number] Iron deficiency anemia due to chronic blood loss (Primary Dx) Discharge Disposition: Discharge to home or self [...] on file 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 Gender Identity Not on file Sexual Orientation Not on file documented as of this encounter Last Filed Vital Signs Vital Sign Reading Time Taken Comments Blood Pressure 158/90 02/04/2021 10:34 AM VOLLEYBALL PLAYER Pulse 71 02/04/2021 10:34 AM VOLLEYBALL PLAYER Temperature 36.3 ??C (97.3 ??F) 02/04/2021 10:[address] Respiratory Rate 20 02/04/2021 10:34 AM VOLLEYBALL PLAYER Oxygen Saturation 97% 02/04/2021 10:34 AM VOLLEYBALL PLAYER Inhaled Oxygen Concentration - - Weight - - Height - - Body Mass Index - - documented in this encounter Discharge Disposition Disposition Code Departure Means Destination Discharge to home or self care documented in this encounter Nursing Notes * Liyah Frye RN - 02/04/2021 10:30 AM CST The patient presented to the infusion center per Dr. Long for an infused of Venofer. The patients vital signs are stable and she has no questions or concerns. Her IV was started in the right ac on the first attempt, blood return was noted and it flushed without resistance. Her Venofer infused over90 minutes and the patient tolerated it well. Her IV was then flushed with NS and then discontinued, a cotton ball was placed over the site and the patient was given her discharge instructions. EYBALL PLAYER documented in this encounter Plan of Treatment Not on file documented as of this encounter Visit Diagnoses Diagnosis Iron deficiency anemia due to chronic blood loss- Primary Iron deficiency anemia secondary to blood loss (chronic) documented in this encounter Administered Medications Inactive Administered Medications - up to 3 most recent administrations Medication Order MAR Action Action Date Dose Rate Site iron sucrose (VENOFER) 300 mg in sodium chloride 0.9% 250 mL IVPB 300 mg, intravenous, at 176.7 mL/hr, Administer over 90 Minutes, Once, On Sun02/04/21 at 1115, For 1 doseIndications:Iron deficiency anemia due to chronic blood loss New Bag 02/04/2021 11:15 AM VOLLEYBALL PLAYER 300 mg 176.7 mL/hr documented in this encounter Orders Medications Ordered That Álvaro ht Not Have Been Administered Count Last Ordered Date First Ordered Date iron sucrose (VENOFER) 300 m g in sodium chloride 0.9% 250 mL IVPB 1 02/04/2021 sodium chloride 0.9% flush 10 mL 1 02/05/20 21 documented in this encounter Care Teams Metal Painter Relationship Specialty Start Date End Date Francisco Long MD PCP - General 02/23/17 05/15/22 Neil Ag MD PhD [address] [place] [address] Radiation Oncologist Radiation Oncology 12/17/18 [place] [address] [address] [facility] [address] [place] [address] Referring Physician General Surgery 12/17/18 [place] [address] [facility] [address] [place] [address] Medical Oncologist/Commercial Lines Sales Executive Medical Oncology 12/17/18 [place] [address] [facility] [address] [place] [address] Consulting Physician Gastroenterology 01/07/20 documented as of this encounter
--- OUTSIDE RECORDS SUMMARY | 2024-11-16 12:56 | XMS_ITS | Encounter Summary ---
Author Organization [facility] Address [address] [facility] [address] [place] [address] Care Team Providers Care Statistical Analyst Name Role Phone Francisco Long MD Primary Care Provider Neil Ag MD PhD Unavailable Ita Vazquez MD Unavailable Caron Mohan MD Unavailable Pebbles Felton MD Unavailable [phone] Yamileth Meade MA Unavailable [phone] Reason for Visit * Reason Comments Hospital Follow Up Encounter Details Date Type Department Care Team (Late st Contact Info) Description 04/26/2021 2:30 PM CDT Office Visit [facility] [address] [facility] [address] [place] [address] Francisco Long MD [address] [place] [address] [address] [place] [address] Left-sided Shi's palsy (Primary Dx); Class 1 obesity with body mass index (BMI) of 30.0 to 30.9 in adult, unspecified obesity type, unspecified whether serious comorbidity present Social History Tobacco Use Types Packs/Day Years Used Date Smoking Tobacco: Never Smokeless Tobacco: Never Tobacco Cessation:Counseling Given: Yes Alcohol Use Standard Drinks/Week Comments No 0 [...] on file 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 Gender Identity Not on file Sexual Orientation Not on file documented as of this encounter Last Filed Vital Signs Vital Sign Reading Time Taken Comments Blood Pressure 158/90 04/26/2021 2:10 PM CDT Pulse 70 04/26/2021 2:10 PM CDT Temperature - - Respiratory Rate 20 04/26/2021 2:10 PM CDT Oxygen Saturation - - Inhaled Oxygen Concentration - - Weight 88.5 kg (195 lb) 04/26/2021 2:10 PM CDT Height 170.2 cm (5' 7 ) 04/26/2021 2:10 PM CDT Body Mass Index 30.54 04/26/2021 2:10 PM CDT documented in this encounter Progress Notes * Francisco Long MD - 04/26/2021 2:30 PM CDT Subjective/Objective Patient ID: Jolene Cedillo is a 75 y.o. female. Chief Complaint Hospital Follow Up HPI 75-year-old seen today for hospital follow-up she has the emergency room diagnosed with Shi's palsy 1st she thought she had a stroke came on quickly they put on prednisone acyclovir she is tolerating the medication well Review of Systems Vitals: 04/26/21 1410 BP: 158/90 BP Location: Right arm Patient Position: Sitting Pulse: 70 Resp: 20 Weight: 88.5 kg (195 lb) Height: 170.2 cm (5' 7 ) Physical Exam Patient has left teary eye slightly injected left facial droop and paralysis of the upper and lowerfacial muscles on the left side are noted muscle strength in the upper lower extremities 5/5 both TMs are normal skin is unremarkable Shi's sign is positive on the left Assessment/Plan Diagnoses and all orders for this visit: Left-sided Shi's palsy (Primary) Class 1 obesity with body mass index (BMI) of 30.0 to 30.9 in adult, unspecified obesity type, unspecified whether serious comorbidity present Disease process of Shi's palsy discussed with her and her Douglas who accompanies her recommend patch at nighttime continue eyedrops during the day and at night if necessary rationale for eye patching discussed with patient natural progression of Shi's palsy discussed with her at her will see back in about a month She has continue to work on her weight through daily exercise currently the going on vacation in their RV leaving this week Side effects, risks, interactions reviewed with patient. [...] as of this encounter Visit Diagnoses Diagnosis Left-sided Shi's palsy- Primary Class 1 obesity with body mass index (BMI) of 30.0 to 30.9 in adult, unspecified obesity type, unspecified whether serious comorbidity present documented in this encounter Care Teams Statistical Analyst Relationship Specialty Start Date End Date Francisco Long MD PCP - General 02/23/17 05/15/22 Neil Ag MD PhD [address] [place] [address] Radiation Oncologist Radiation Oncology 12/17/18 [place] [address] [facility] [address] [place] [address] Referring Physician General Surgery 12/17/18 [place] [address] [facility] [address] [place] [address] Medical Oncologist/Tariff Counsel Medical Oncology 12/17/18 [place] [address] [facility] [address] [place] [address] Consulting Physician Gastroenterology 01/07/20 Yamileth Meade MA [address] [place] [address] [address] [place] [address] ACO Care Reconciliation Clerk 04/26/21 04/26/21 documented as of this encounter
--- OUTSIDE RECORDS SUMMARY | 2024-11-16 12:56 | XMS_ITS | Encounter Summary ---
Author Organization [facility] Address [address] [facility] [address] [place] [address] Care Team Providers Care Clerk General Name Role Phone Francisco Long MD Primary Care Provider [phone] Neil Ag MD PhD Unavailable [phone] Ita estrada MD Unavailable Caron Mohan MD Unavailable Pebbles Felton MD Unavailable [phone] Encounter Details Date Type Department Care Team (Late st Contact Info) Description 03/10/2021 Telephone [facility] [address] [facility] [address] [place] [address] Larry Wetzel PA [address] [place] [address] [address] [place] [address] Social History Tobacco Use Types [...] on file 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 Please advise [phone] documented in this encounter Plan of Treatment Not on file documented as of this encounter Visit Diagnoses Not on filedocumented in this encounter Care Teams Clerk General Relationship Specialty Start Date End Date Francisco Long MD PCP - General 02/23/17 05/15/22 Neil Ag MD PhD [address] [place] [address] Radiation Oncologist Radiation Oncology 12/17/18 [place] [address] [address] [facility] [address] [place] [address] Referring Physician General Surgery 12/17/18 [place] [address] [address] [facility] [address] [place] [address] Medical Oncologist/Director Of Radiology Medical Oncology 12/17/18 [place] [address] [address] Consulting Physician Gastroenterology 01/07/20 documented as of this encounter
--- OUTSIDE RECORDS SUMMARY | 2024-11-16 12:56 | XMS_ITS | Encounter Summary ---
Author Organization [facility] Address [address] [place] [address] Care Team Providers Care Harbor Tug Captain Name Role Phone Francisco Long MD Primary Care Provider [phone] Neil Ag MD PhD Unavailable [phone] Ita estrada MD Unavailable Caron Mohan MD Unavailable Pebbles Felton MD Unavailable [phone] Encounter Details Date Type Department Care Team (Late st Contact Info) Description 09/20/2021 Orders Only [facility] [address] [place] [address] Francisco Long MD [address] [place] [address] [address] [place] [address] Social History Tobacco Use Types [...] on file 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 Fasting reference interval For someone without known diabetes, a glucose value >125 mg/dL indicates that they may have diabetes and this should be confirmed with a follow-up test. BUN 17 7 - 25 mg/dL [facility] Creatinine 0.85 0.60 - 0.93 mg/dL [facility] Comment: For patients >49 years of age, the reference limit for Creatinine is approximately 13% higher for people identified as -Chilean. eGFR NON-AFR. UKRAINIAN 67 > OR = 60 mL/min/1 .73m2 [facility] EGFR 78 > OR = 60 mL/min/1 .73m2 [facility] BUN/creat ratio NOT APPLICABLE 6 - 22 (calc) [facility] Sodium 140 135 - 146 mmol/L [facility] Potassium, pl 4.5 3.5 - 5.3 mmol/L [facility] Chloride 104 98 - 110 mmol/L [facility] CO2 31 20 - 32 mmol/L [facility] Calcium 8.8 8.6 - 10.4 mg/dL [facility] 09/20/2021 8:15 AM CDT 09/20/2021 8:17 AM CDT Francisco Long MD LAB BLOOD ORDERABLES Final Res ult Performing Organization Address [facility] de Phone Number [facility] [address] [place] [address] * (ABNORMAL) Iron profile w/ IBC (09/20/2021 8:15 AM CDT) [facility] Iron 25(L) 45 - 160 mcg/dL [facility] TIBC 438 250 - 450 mcg/dL (calc) [facility] Iron saturation 6(L) 16 - 45 % (calc) [facility] 09/20/2021 8:15 AM CDT 09/20/2021 8:17 AM CDT Francisco Long MD LAB BLOOD ORDERABLES Final Res ult Performing Organization Address [facility] de Phone Number [facility] [address] [place] [address] * (ABNORMAL) CBC with auto differential (09/20/2021 8:15 AM CDT) [facility] WBC 5.6 3.8 - 10.8 Thousand/u L [facility] RBC, POC 4.33 3.80 - 5.10 Million/uL [facility] Hgb 9.3(L) 11.7 - 15.5 g/dL [facility] Hct 32.9(L) 35.0 - 45.0 % [facility] MCV 76.0(L) 80.0 - 100.0 fL [facility] MCH 21.5(L) 27.0 - 33.0 pg [facility] MCHC 28.3(L) 32.0 - 36.0 g/dL [facility] Rdw 18.3(H) 11.0 - 15.0 % [facility] Platelets 283 140 - 400 Thousand/u L [facility] MPV 10.6 7.5 - 12.5 fL [facility] Neutrophils, abs 4,318 1,500 - 7,800 cells/uL [facility] Lymphocytes, abs 582(L) 850 - 3,900 cells/uL [facility] Monocyte abs 448 200 - 950 cells/uL [facility] Eosinophils, abs 202 15 - 500 cells/uL [facility] Basophils, abs 50 0 - 200 cells/uL [facility] Neutrophils 77.1 % [facility] Lymphocyte pct 10.4 % [facility] Monocytes 8.0 % [facility] Eosinophils 3.6 % [facility] Basophils 0.9 % [facility] 09/20/2021 8:15 AM CDT 09/20/2021 8:17 AM CDT Fracnisco Long MD LAB BLOOD ORDERABLES Final Res ult [facility] [address] [place] [address] * (ABNORMAL) Hemoglobin A1c (09/20/2021 8:15 AM CDT) Hgb A1C 6.7(H) <5.7 % of total Hgb [facility] 09/20/2021 8:15 AM CDT 09/20/2021 8:17 AM CDT Francisco Long MD LAB BLOOD ORDERABLES Final Res ult [facility] [address] [place] [address] documented in this encounter Visit Diagnoses Not on filedocumented in this encounter Care Teams Harbor Tug Captain Relationship Specialty Start Date End Date Francisco Long MD PCP - General 02/23/17 05/15/22 Neil Ag MD PhD [address] [place] [address] Radiation Oncologist Radiation Oncology 12/17/18 [place] [id number] [address] [facility] [address] [place], [place] [id number] Referring Physician General Surgery 12/17/18 [place] [id number] [address] [facility] [address] [place], [place] [id number] Medical Oncologist/Prosthetic Makeup Designer Medical Oncology 12/17/18 [place] [id number] [address] [facility] [address] [place] [address] Consulting Physician Gastroenterology 01/07/20 documented as of this encounter
--- OUTSIDE RECORDS SUMMARY | 2024-11-16 12:56 | XMS_ITS | Encounter Summary ---
Author Organization [facility] Healthcare Address [address] [place] [address] Care Team Providers Care Radiologic Electronic Specialist Name Role Phone Francisco Long MD Primary Care Provider [phone] Neil Ag MD PhD Unavailable Ita estrada MD Unavailable Caron Mohan MD Unavailable [phone] Pebbles Felton MD Unavailable [phone] Reason for Visit * Reason Comments Stroke Encounter Details Date Type Department Care Team (Late st Contact Info) Description 04/24/2021 9:05 AM CDT - 04/24/2021 10:29 AM CDT Emergency [facility] Emergency Department [address] [place] [address] Chitra Mike MD [address] [place] [id number] Left-sided Shi's palsy (Primary Dx) Discharge Disposition: Discharge to home [...] on file 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 [employer] Gender Identity Not on file Sexual Orientation Not on file documented as of this encounter Last Filed Vital Signs Vital Sign Reading Time Taken Comments Blood Pressure 169/83 04/24/2021 10:20 AM CDT Pulse 72 04/24/2021 10:20 AM CDT Temperature 36.2 ??C (97.2 ??F) 04/24/2021 9:25 AM CD T Respiratory Rate 24 04/24/2021 10:20 AM CDT Oxygen Saturation 100% 04/24/2021 10:20 AM CDT Inhaled Oxygen Concentration - - Weight 88.5 kg (195 lb) 04/24/2021 9:25 AM CDT Height - - Body Mass Index 30.54 04/21/2021 10:32 AM CDT documented in this encounter Discharge Diagnoses Diagnosis Shi's palsy - SHI'S PALSY Hyperlipidemia, unspecified - HYPERLIPIDEMIA, UNSPECIFIED Essential (primary) hypertension - ESSENTIAL (PRIMARY) HYPERTENSION Unspecified essential hypertension Gastro-esophageal reflux disease without esophagitis - GASTRO-ESOPHAGEAL REFLUX DISEASE WITHOUT ESOPHAGITIS Family history of ischemic heart disease and other diseases of the circulatory system - FAMILY HISTORY OF ISCHEMIC HEART DISEASE AND OTHER DISEASES OF THE CIRCULATORY SYSTEM Family history of diabetes mellitus - FAMILY HISTORY OF DIABETES MELLITUS Personal history of malignant neoplasm of other parts of uterus - PERSONAL HISTORY OF MALIGNANT NEOPLASM OF OTHER PARTS OF UTERUS Acquired absence of both cervix and uterus - ACQUIRED ABSENCE OF BOTH CERVIX AND UTERUS Presence of right artificial knee joint - PRESENCE OF RIGHT ARTIFICIAL KNEE JOINT documented in this encounter Discharge Instructions * Discharge Instructions* Chitra Mike MD - 04/24/2021 9:52 AM CDT Prednisone as directed. Valcyclovir as directed. See Dr. Long this week. * Attachments The following attachments cannot be sent through Care Everywhere. * Shi Palsy (AfterCare(R) Instructions(ER/ED)) (Bermudian) documented in this encounter Medications at Time of Discharge letrozole (FEMARA) 2.5 mg tablet Take 1 tablet (2.5 mg total) by mouth daily methotrexate 2.5 mg tabletIndication s:Rheumatoid Arthritis Take 1 tablet (2.5 mg total) by mouth every 7 days Takes 6 tablets every Sunday predniSONE (DELTASONE) 20 mg tablet Take 3 tablets (60 mg) by mouth daily for 7 days 21 tablet 04/24/2021 1 valACYclovir (VALTREX) 1 gram tablet Take 1 tablet (1,000 mg total) by mouth 3 (three) times a day for 7 days 21 tablet 04/24/2021 1 carvediloL (COREG) 6.25 mg tablet TAKE ONE TABLET BY MOUTH TWICE DAILY WITH MEALS 180 tablet 3 12/23/2020 2 cholecalciferol (VITAMIN D-3) 400 unit capsule 1,000 Units 02 4 famotidine (PEPCID) 40 mg tablet Take 1 tablet (40 mg total) by mouth daily 90 tablet 3 12/30/2020 4 losartan (COZAAR) 100 mg tablet TAKE 1 TABLET BY MOUTH EVERY DAY 90 tablet 3 09/24/[address] (PROTONIX) 40 mg EC tablet Take 1 tablet (40 mg total) by mouth daily 30 tablet 11 12/30/2020 2 rosuvastatin (CRESTOR) 5 mg tablet Take 1 tablet (5 mg total) by mouth daily 30 tablet 11 03/25/2021 4 white petrolatum-psychometric examiner al oil (white petrolatum-psychometric examiner al oiL) ointment Apply 1 application to left eye 2 (two) times a day 3.5 g 04/24/2021 2 documented as of this encounter Ordered Prescriptions Prescription Sig Dispense Quantity Refills Last Filled Start Date End Date white petrolatum-mineral oil (white petrolatum-mineral oiL) ointment Apply 1 application to left eye 2 (two) times a day 3.5 g 04/24/2021 2 valACYclovir (VALTREX) 1 gram tablet Take 1 tablet (1,000 mg total) by mouth 3 (three) times a day for 7 days 21 tablet 04/24/2021 1 predniSONE (DELTASONE) 20 mg tablet Take 3 tablets (60 mg) by mouth daily for 7 days 21 tablet 04/24/2021 1 documented in this encounter Discharge Disposition Disposition Code Departure Means Destination Discharge to home or self care documented in this encounter ED Notes * Cierra Logan RN - 04/24/2021 9:24 AM CDT Pt to er 10 from triage c/o left facial droop that started around 0745. Pt states she did not notice when she was getting ready this morning, noticed when went to breakfast. Pt denies weakness, confusion. 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 * Chitra Mike MD - 04/24/2021 9:06 AM CDTAssociated Order(s): ECG 12 lead HPI Chief Complaint Patient presents with ??? Stroke HPI 9:06 AM Jolene Cedillo is a 75 y.o. female with a hx of HTN, HLD, GERD, and anemia s/p hysterectomy presenting to the ED c/o constant left sided facial droop that began around 0745 this morning. The pt states that she did not notice any facial droop this morning while she was getting ready. Shereports that she was walking into a restaurant to have breakfast with her when a worker at the restaurant noted that she was having some left sed facial drooping. This then prompted the pt tocome to the ED. Upon arrival to the ED Neuro code 1 was called to the pt's room. However, no focal neurologic deficits could be found. The pt denies any VALDERRAMA, numbness, weakness, fever, chills, cough, SOB, N/V/D, or any other complaints at this time. No modifying factors are noted. The pt currently lives at home with her and is a non smoker. PMSFHx: Nursing note reviewed. Patient History: Past Medical History: Diagnosis Date ??? Anemia ??? GERD (gastroesophageal reflux disease) ??? HX OTHER MEDICAL B/L arthroscopic knee surg ??? HX OTHER MEDICAL RA ??? HX OTHER MEDICAL R knee replacement ??? HX OTHER MEDICAL blood clot- right leg ??? Hyperlipidemia Hyperlipidemia ??? Hypertension Hypertension ??? Screening mammogram, encounter for 1945 ??? U[facility]ine cancer ([facility]) 04/2018 Past Surgical History: Procedure Laterality Date ??? BREAST LUMPECTOMY Left 2018 ??? CATARACT EXTRACTION Cataract extraction ??? COLONOSCOPY 12/2019 ??? HYSTERECTOMY 06/2018 Family History Problem Relation Age of Onset ??? Heart attack Father Myocardial infarction; ??? Diabetes Father Diabetes mellitus; ??? Heart disease Father Heart disease; ??? Diabetes type II Other Family history of Diabetes -Type 2; ??? Diabetes Mother Diabetes mellitus; ??? Other Father's Sister mastectomy. ??CA; Social History Tobacco Use ??? Smoking status: Never Smoker ??? Smokeless tobacco: Never Used Vaping Use ??? Vaping Use: Never used Substance Use Topics ??? Alcohol use: No ??? Drug use: No Review of Systems Review of Systems Constitutional: Negative for chills and fever. HENT: Negative for congestion and sore throat. Eyes: Negative for pain and visual disturbance. Respiratory: Negative for cough, shortness of breath and wheezing. Cardiovascular: Negative for chest pain and palpitations. Gastrointestinal: Negative for abdominal pain, diarrhea, nausea and vomiting. Genitourinary: Negative for difficulty urinating, dysuria and frequency. Neurological: Positive for facial asymmetry (left sided facial droop). Negative for weakness, numbness and headaches. All other systems reviewed and are negative. Physical Exam ED Triage Vitals Temp Pulse Resp BP SpO2 04/24/21 0925 04/24/21 0925 04/24/21 0925 04/24/21 0907 04/24/21 0930 36.2 ??C (97.2 ??F) 74 16 (!) 190/95 98 % Temp src Heart Rate Source Patient Position BP Location FiO2 (%) 04/24/21 0925 -- -- -- -- Temporal Physical Exam Vitals and nursing note reviewed. Constitutional: Appearance: She is well-developed. HENT: Head: Normocephalic. Nose: Nose normal. Eyes: Conjunctiva/sclera: Conjunctivae normal. Pupils: Pupils are equal, round, and reactive to light. Cardiovascular: Rate and Rhythm: Normal rate and regular rhythm. Heart sounds: Normal heart sounds. Pulmonary: Effort: Pulmonary effort is normal. Breath sounds: Normal breath sounds. Abdominal: General: Bowel sounds are normal. Palpations: Abdomen is soft. Musculoskeletal: General: Normal range of motion. Cervical back: Normal range of motion and neck supple. Right lower leg: Edema (mild) present. Left lower leg: Edema (mild) present. Skin: General: Skin is warm and dry. Neurological: General: No focal deficit present. Mental Status: She is alert and oriented to person, place, and time. Cranial Nerves: Facial asymmetry (left sided facial droop with involvement of the forehead) present. Sensory: Sensation is intact. Motor: Motor function is intact. Coordination: Coordination is intact. ECG 12 lead Date/Time: 04/24/2021 10:13 AM Performed by: Chitra Mike MD Authorized by: Chitra Mike MD Rate: ECG rate: 75 ECG rate assessment: normal Rhythm: Rhythm: sinus rhythm Interpretation: Interpretation: normal MDM Labs Reviewed CBC WITH AUTO DIFFERENTIAL - Abnormal Result Value WBC 4.9 Hgb 13.4 Hct 42.9 Plt 172 MPV 8.8 (*) RBC 5.37 (*) MCV 79.9 (*) MCH 25.0 (*) MCHC 31.2 (*) RDW CV 21.8 (*) RDW SD 61.2 (*) NRBC abs 0.00 Narrative: Potential Stroke Patient DIFFERENTIAL AUTO - Abnormal Neutrophil abs 4.1 Imm gran abs 0.0 Lymphocyte abs 0.5 (*) Monocyte abs 0.2 Eosinophil abs 0.1 Basophil abs 0.0 Neutrophil pct 82.4 Imm gran pct 0.6 Lymphocyte pct 10.3 Monocyte pct 4.3 Eosinophil pct 2.0 Basophil pct 0.4 POCT GLUCOSE DEVICE - Abnormal Glucose, POC 172 (*) BASIC METABOLIC PANEL Sodium 137 Potassium, pl 4.8 Chloride 100 CO2 28 Anion gap 9 BUN 17 Creatinine 0.86 Glucose 185 Calcium 9.5 Narrative: Potential Stroke patient. PROTIME-INR PT 11.9 INR 1.1 Narrative: Potential stroke patient. APTT aPTT 33 Narrative: Potential stroke patient. TROPONIN T HIGH-SENSITIVITY SERIES (BASELINE, 2HR, 4HR, 6HR) Trop T hs <6 EGFR GFR [address] Stroke Head WO Contrast Final Result BP 169/83 Pulse 72 Temp 36.2 ??C (97.2 ??F) (Temporal) Resp 24 Wt 88.5 kg (195 lb) SpO2 100% BMI 30.54 kg/m?? [facility] ED Course as of Apr 24 1513 Time: 04/24 908 Comment: Pre-hypertension/Hypertension: The patient has been informed that they may have pre-hypertension or Hypertension based on a blood pressure reading in the Emergency Department. I recommend that the patient call the primary care provider listed on their discharge instructions or a physician of their choice this week to arrange follow up for further evaluation of possible pre- hypertension or Hypertension. By: Anish Story Time: 04/24 926 Value: CT Stroke Head WO Contrast Comment: No acute intracranial findings. If there is continued clinical concern for acute infarct; MRI is recommended for further evaluation. ?? 2. Findings consistent with sequela of moderate chronic ischemic microangiopathy and moderate global parenchymal atrophy. By: Anish Story Time: 04/24 933 Comment: Clinical findings at this time are suggestive of lower motor neuron problem consistent with Shi's palsy. No TPA is needed at this time. By: Anish Story Clinical Impression: Left-sided Shi's palsy This note is prepared by Anish Story, acting as a scribe for Chitra Mike MD. I electronically signed this note at 9:06 AM on 04/24/2021. I, Chitra Mike MD have personally performed the services described in the documentation, reviewed the documentation, as recorded by the scribe in my presence, and it accurately and completely records my words and actions. Chitra Mike MD 04/24/21 1513 documented in this encounter Plan of Treatment Not on file documented as of this encounter Procedures Procedure Name Priority Date/Time Associated Diagnosis Comments ECG 12-LEAD STAT 04/24/2021 9:[address] STROKE PROTOCOL WO CONTRAST Critical/Life-T hreatening 04/24/2021 9:20 AM CDT TROPONIN T HIGH-SENSITIVITY SERIES (BASELINE, 2HR, 4HR, 6HR) STAT 04/24/2021 9:17 AM CDT EGFR STAT 04/24/2021 9:17 AM CDT DIFFERENTIAL AUTO STAT 04/24/2021 9:1 7 AM CDT CBC WITH AUTO DIFFERENTIAL STAT 04/24/2021 9:17 AM CDT APTT STAT 04/24/2021 9:17 AM CDT PROTIME-INR STAT 04/24/2021 9:17 AM CDT BASIC METABOLIC PANEL STAT 04/24/2021 9:17 AM CDT POCT GLUCOSE DEVICE Routine 04/24/2021 9 :07 AM CDT documented in this encounter Results * ECG 12 lead (04/24/2021 9:24 AM CDT) 04/24/2021 9:24 AM CDT Narrative [facility] - 04/26/2021 12:49 PM CDT Vent Rate: 75 bpm RR Interval: 797 msec ID Interval: 193 msec QRS Duration: 98 msec QT Interval: 391 msec QTC Interval: 420 msec P-R-T [place]: 65 - -53 - 66 degrees SINUS RHYTHM LEFT ANTERIOR FASCICULAR BLOCK ??[QRS AXIS <= -45, QR IN I, RS IN II] ABNORMAL ECG Compared to 01/05/2020 left anterior fascicular block is new Electronically Signed By: Dr Sudarshan Cain us Chitra Mike MD ECG ORDERABLES Edited Res ult - Final [facility] * CT Stroke Head WO Contrast (04/24/2021 9:20 AM CDT) Anatomical Region Laterality Modality Head N/A Computed Tomogra phy 04/24/2021 9:22 AM CDT Narrative 04/24/2021 9:26 AM CDT EXAM DESCRIPTION: ?? CT STROKE HEAD WO CONTRAST REASON FOR STUDY: ?? Left side facial droop started at 7:45 this morning. Duration: 7:45 today TECHNIQUE: ??Axial images acquired through the brain without intravenous contrast. ??Images stored on PACS. ?? Automated exposure control was used as a dose optimization technique for this examination. COMPARISON: ?? None available. FINDINGS: BRAIN: ??No acute hemorrhage, edema or mass effect. No recent infarct. ??There are confluent and patchy subcortical and periventricular white matter hypodensities compatible with chronic small vessel ischemic changes. ??The ventricles and sulci are moderately enlarged commensurate with global cerebral parenchymal volume loss. ??Intracranial atherosclerosis is noted. ?? EXTRA-AXIAL SPACES: ??No fluid collections. No masses. CALVARIUM: ??No fracture. SINUSES/MASTOIDS: ??No fluid or mucosal thickening. ORBITS: Bilateral lens replacements are noted. ??No significant abnormality. OTHER: ??No other significant abnormality. IMPRESSION: ??1. ??No acute intracranial findings. ??If there is continued clinical concern for acute infarct; MRI is recommended for further evaluation. 2. ??Findings consistent with sequela of moderate chronic ischemic microangiopathy and moderate global parenchymal atrophy. Findings called by [facility] staff at the time of this dictation as per stroke communication protocol. THIS IS AN ELECTRONICALLY VERIFIED FINAL REPORT 04/24/2021 9:26 AM - Electronically signed by Caesar GOODMAN: MAXINE D: ??04/24/2021 9:26 AM T: ??04/24/2021 9:26 AM Report ID: [id number] Reading Location: ??[id number] Procedure Note Caesar Johnston, DO - 04/24/2021 EXAM DESCRIPTION: CT STROKE HEAD WO CONTRAST REASON FOR STUDY: Left side facial droop started at 7:45 this morning. Duration: 7:45 today TECHNIQUE: Axial images acquired through the brain without intravenous contrast. Images stored on PACS. Automated exposure control was used asa dose optimization technique for this examination. COMPARISON: None available. FINDINGS: BRAIN: No acute hemorrhage, edema or mass effect. No recent infarct.There are confluent and patchy subcortical and periventricular white matter hypodensities compatible with chronic small vessel ischemic changes. The ventricles and sulci are moderately enlarged commensurate with globalcerebral parenchymal volume loss. Intracranial atherosclerosis is noted. EXTRA-AXIAL SPACES: No fluid collections. No masses. CALVARIUM: No fracture. SINUSES/MASTOIDS: No fluid or mucosal thickening. ORBITS: Bilateral lens replacements are noted. No significantabnormality. OTHER: No other significant abnormality. IMPRESSION: 1. No acute intracranial findings. If there is continued clinical concern for acute infarct; MRI is recommended for furtherevaluation. 2. Findings consistent with sequela of moderate chronic ischemic microangiopathy and moderate global parenchymal atrophy. Findings called by [facility] staff at the time of this dictation as per stroke communication protocol. THIS IS AN ELECTRONICALLY VERIFIED FINAL REPORT 04/24/2021 9:26 AM - Electronically signed by Caesar GOODMAN: MAXINE Report ID: [id number] Reading Location: [id number] us Chitra Mike MD IMG CT PROCEDURES Final Re sult * eGFR (04/24/2021 9:17 AM CDT) Pathologist [facility] eGFR 67 mL/min/1.7 3 m2 [facility] ([place]) Comment: Interpretive Data Reference Interval Normal ?>/= 90 mL/min/1.73m2 Mildly decreased* ? 60 - 89 mL/min/1.73m2 Mildly to moderately decreased ?45 - 59 mL/min/1.73m2 Moderately to severely decreased ??30 - 44 mL/min/1.73m2 Severely decreased ?15 - 29 mL/min/1.73m2 Kidney Failure ?< 15 ??mL/min/1.73m2 *Relative to young adult level Estimated glomerular filtration rate is determined by the CKD-EPI equation recommended by the National Kidney Foundation (KDIGO 2012 Clinical Practice Guideline for the Evaluation and Management of Chronic Kidney Disease. Kidney Intnl Suppl Nov 2012;3:1). The CKD-EPI equation should not be used for patients with unstable renal function and has not been validated in children and those over 70. Current interpretive data was last reviewed 2020 Blood specimen (specimen) 04/24/2021 9:17 AM CDT 04/24/2021 9:20 AM CDT us Chitra Mike MD LAB BLOOD ORDERABLES Final Result [facility] ([place]) [address] [facility] [place] [address] * (ABNORMAL) Differential, auto (04/24/2021 9:17 AM CDT) Neutrophil abs 4.1 1.7 - 6.5 K/cumm [facility] ([place]) Imm gran abs 0.0 0.0 - 0.1 K/cumm [facility] ([place]) Lymphocyte abs 0.5(L) 0.8 - 3.3 K/cumm [facility] ([place]) Monocyte abs 0.2 0.2 - 0.8 K/cumm [facility] ([place]) Eosinophil abs 0.1 0.0 - 0.5 K/cumm [facility] ([place]) Basophil abs 0.0 0.0 - 0.1 K/cumm [facility] ([place]) Neutrophil pct 82.4 % [facility] ([place]) Comment: Interpretive Data Percent cell count reference ranges are not reported, since discordance with absolute values may lead to misinterpretation of CBC data. Current Interpretive Data was last revised on 2018. Imm gran pct 0.6 % [facility] ([place]) Comment: Interpretive Data Percent cell count reference ranges are not reported, since discordance with absolute values may lead to misinterpretation of CBC data. Current Interpretive Data was last revised on 2018. Lymphocyte pct 10.3 % [facility] ([place]) Comment: Interpretive Data Percent cell count reference ranges are not reported, since discordance with absolute values may lead to misinterpretation of CBC data. Current Interpretive Data was last revised on 2018. Monocyte pct 4.3 % [facility] ([place]) Comment: Interpretive Data Percent cell count reference ranges are not reported, since discordance with absolute values may lead to misinterpretation of CBC data. Current Interpretive Data was last revised on 2018. Eosinophil pct 2.0 % [facility] ([place]) Comment: Interpretive Data Percent cell count reference ranges are not reported, since discordance with absolute values may lead to misinterpretation of CBC data. Current Interpretive Data was last revised on 2018. Basophil pct 0.4 % [facility] ([place]) Comment: Interpretive Data Percent cell count reference ranges are not reported, since discordance with absolute values may lead to misinterpretation of CBC data. Current Interpretive Data was last revised on 2018. Blood specimen (specimen) 04/24/2021 9:17 AM CDT 04/24/2021 9:20 AM CDT Chitra Mike MD LAB BLOOD ORDERABLES Final Result Performing Organization Address [facility] Co de Phone Number [facility] ([place]) [address] [place] [address] * Troponin T high-sensitivity series (baseline, 2hr, 4hr, 6hr) (04/24/2021 9:17 AM CDT) Trop T hs <6 <=14 ng/L [facility] ([place]) Comment: Interpretive Data For further hscTnT resources including the diagnostic algorithm and an aid in interpretation, copy and paste this link: https://nrl.testcatalog.org/show/hsTrop Current Interpretive Data last revised 2020. Blood specimen (specimen) 04/24/2021 9:17 AM CDT 04/24/2021 9:20 AM CDT Chitra Mike MD LAB BLOOD ORDERABLES Final Result Performing Organization Address [facility] Co de Phone Number [facility] ([place]) [address] [facility] [place] [address] * aPTT (04/24/2021 9:17 AM CDT) aPTT 33 27 - 37 sec [facility] ([place]) Comment: Interpretive data Heparin therapeutic range: 60-94 seconds Range based on correlation with therapeutic heparin activity range of 0.3-0.7 units/ml. Current interpretive data was last revised on 2019. Blood specimen (specimen) (Blood, Venous) 04/24/2021 9:17 AM CDT 04/24/2021 9:20 AM CDT Narrative [facility] ([place]) - 04/24/2021 9:32 AM CDT Potential stroke patient. Chitra Mike MD LAB BLOOD ORDERABLES Final Result Performing Organization Address City/[facility]/ZIP Co de Phone Number [facility] ([place]) [address] [facility] [place] [address] * Protime-INR (04/24/2021 9:17 AM CDT) Pathologist [facility] PT 11.9 9.5 - 13.6 sec [facility] ([place]) INR 1.1 0.9 - 1.2 [facility] ([place]) Comment: Interpretive data Oral anticoagulant therapeutic ranges: Venous thromboembolism prophylaxis or treatment: 2.0-3.0 CARDIOLOGY Standard range: 2.0-3.0 High-intensity range: 2.5-3.5 Refer to indication-specific guidelines for appropriate target ranges for prosthetic heart valve replacement. Current interpretive data was last revised on 2019. Blood specimen (specimen) (Blood, Venous) 04/24/2021 9:17 AM CDT 04/24/2021 9:20 AM CDT N[facility]ative [facility] - 04/24/2021 9:29 AM CDT Potential stroke patient. us Chitra Mike MD LAB BLOOD ORDERABLES Final Result Performing Organization Address City/[facility] Co de Phone Number [facility] ([place]) 1 [facility] [place] [address] * (ABNORMAL) CBC with auto differential (04/24/2021 9:17 AM CDT) WBC 4.9 3.8 - 9.9 K/cumm [facility] ([place]) Hgb 13.4 11.9 - 15.5 g/dL [facility] ([place]) Hct 42.9 35.6 - 45.5 % [facility] ([place]) Plt 172 150 - 400 K/cumm [facility] ([place]) MPV 8.8(L) 9.1 - 12.3 fL [facility] ([place]) RBC 5.37(H) 3.90 - 5.20 M/cumm [facility] ([place] MCV 79.9(L) 81.3 - 96.4 fL [facility] ([place]) MCH 25.0(L) 27.1 - 33.3 pg [facility] ([place]) MCHC 31.2(L) 32.3 - 35.7 g/dL [facility] ([place]) RDW CV 21.8(H) 11.1 - 14.9 % [facility] ([place]) RDW SD 61.2(H) 35.7 - 48.1 fL [facility] ([place] NRBC abs 0.00 0.00 - 0.01 K/cumm [facility] ([place]) Blood specimen (specimen) (Blood, Venous) 04/24/2021 9:17 AM CDT 04/24/2021 9:20 AM CDT Narrative [facility] ([place] - 04/24/2021 9:39 AM CDT Potential Stroke Patient us Chitra Mike MD LAB BLOOD ORDERABLES Final Result [facility] ([place]) 1 [facility] [place] [address] * Basic metabolic panel (04/24/2021 9:17 AM CDT) Sodium 137 135 - 145 mmol/L [facility] ([place]) Potassium, pl 4.8 3.3 - 4.9 mmol/L [facility] ([place] Chloride 100 97 - 110 mmol/L [facility] ([place]) CO2 28 22 - 32 mmol/L [facility] ([place]) Anion gap 9 2 - 15 mmol/L [facility] ([place]) BUN 17 8 - 25 mg/dL [facility] ([place]) Creatinine 0.86 0.60 - 1.10 mg/dL [facility] ([place]) Glucose 185 70 - 199 mg/dL [facility] ([place]) Comment: Interpretive Data Fasting glucose >/= 126 mg/dl is diagnostic for diabetes. ?? Fasting is defined as no caloric intake for at least 8 hours. Fasting glucose between 100 mg/dl to 125 mg/dl is diagnostic of prediabetes. In a patient with classic symptoms of hyperglycemia or hyperglycemic crisis, a random glucose >/= 200 mg/dl is diagnostic for diabetes. In the absence of unequivocal hyperglycemia, results should be confirmed by repeat testing. The classification and Diagnosis of Diabetes Diabetes Care 2017;40 (Suppl. 1):S11. Current interpretive data was last revised 2017. Calcium 9.5 8.5 - 10.3 mg/dL [facility] [facility] ([place]) Blood specimen (specimen) 04/24/2021 9:17 AM CDT 04/24/2021 9:20 AM CDT Narrative [facility] ([place]) - 04/24/2021 9:41 AM CDT Potential Stroke patient. us Chitra Mike MD LAB BLOOD ORDERABLES Final Result [facility] ([place]) 1 [facility] [place] [address] * (ABNORMAL) POCT glucose (04/24/2021 9:07 AM CDT) [facility] Glucose, POC 172(H) 71 - 98 mg/dL [facility] ([place] Blood specimen (specimen) 04/24/2021 9:07 AM CDT 04/24/2021 9:07 AM CDT us Notinfile Unknown LAB POCT ORDERABLES - DEVICE F inal Result [facility] ([place]) 1 [facility] [place] [address] documented in this encounter Visit Diagnoses Diagnosis Left-sided Shi's palsy- Primary documented in this encounter Orders Lab Orders Without Results Count Last Ordered D ate First Ordered Date POCT GLUCOSE DEVICE 1 04/24/2021 Nursing Count Last Ordered Date First Orde red Date CARDIORESPIRATORY MONITOR 1 04/24/2021 MISCELLANEOUS NURSING CARE ORDER (SPECIFY) 1 04/24/2021 WEIGH PATIENT 1 04/24/2021 IV Count Last Ordered Date First Orde red Date SALINE LOCK IV 1 04/24/2021 documented in this encounter Care Teams Radiologic Electronic Specialist Relationship Specialty Start Date End Date Francisco Long MD PCP - General 02/23/17 05/15/22 Neil Ag MD PhD 6 [place] [address] Radiation Oncologist Radiation Oncology 12/17/18 [place] [address] [facility] [address] [place], [place] [id number] Referring Physician General Surgery 12/17/18 [place] [address] [facility] [address] [place] [address] Medical Oncologist/Top Trimmer Medical Oncology 12/17/18 [place] [address] [facility] 120 [place] [address] Consulting Physician Gastroenterology 01/07/20 documented as of this encounter
--- OUTSIDE RECORDS SUMMARY | 2024-11-16 12:56 | XMS_ITS | Encounter Summary ---
Author Organization [facility] Address [address] [facility] [address] [place] [address] Care Team Providers Care Prosthodontist/Owner Name Role Phone Francisco Long MD Primary Care Provider [phone] Neil Ag MD PhD Unavailable [phone] Ita estrada MD Unavailable Caron Mohan MD Unavailable Pebbles Felton MD Unavailable [phone] Encounter Details Date Type Department Care Team (Late st Contact Info) Description 03/08/2021 Telephone [place] [facility] [address] [facility] [address] [place] [address] Francisco Long MD [address] [place] [address] [address] [place] [address] Social History Tobacco Use Types [...] on file 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 Gender Identity Not on file Sexual Orientation Not on file documented as of this encounter Miscellaneous Notes * Telephone Encounter - Jami Pettit MA - 03/09/2021 11:56 AM CDT Patient notified at office visit with Larry moore * Telephone Encounter - Jami Pettit MA - 03/08/2021 4:45 PM CDT LMOM to call office * Telephone Encounter - Francisco Long MD - 03/08/2021 1:05 PM CDT Methotrexate therapy is up to rheumatology * Telephone Encounter - Latoya Cotton MA - 03/08/2021 10:16 AM CDT jr * Telephone Encounter - Yuli Lopez - 03/08/2021 9:58 AM CDT Pt called and said she was taken off of the methotrexate 2.5 mg tabs and she is in a lot of pain and would like to go back on this if Dr Long will prescribe it for her. She says Dr Chun took her off of this and had been prescribing this. Pt has pain in her arms due to RA. Her hands hurt as well. Pt has this at home and doesn't need a new rx for this. She's just looking for the ok to start it again. She's asking if Dr Long would agree for her to take just one of these. Please advise. documented in this encounter Plan of Treatment Not on file documented as of this encounter Visit Diagnoses Not on filedocumented in this encounter Care Teams Prosthodontist/Owner Relationship Specialty Start Date End Date Francisco Long MD PCP - General 02/23/17 05/15/22 Neil Ag MD PhD 6 [place] [address] Radiation Oncologist Radiation Oncology 12/17/18 [place] [address] [facility] 120 [place], [place] [address] Referring Physician General Surgery 12/17/18 [place] [address] [facility] [address] [place], [place] [id number] Medical Oncologist/Insurance Investigator Medical Oncology 12/17/18 [place] [address] [facility] 120 [place] [address] Consulting Physician Gastroenterology 01/07/20 documented as of this encounter
--- OUTSIDE RECORDS SUMMARY | 2024-11-16 12:56 | XMS_ITS | Encounter Summary ---
Author Organization [facility] Address [address] [facility] [address] [place] [address] Care Team Providers Care Business Coordinator Name Role Phone Francisco Long MD Primary Care Provider [phone] Neil Ag MD PhD Unavailable [phone] Ita estrada MD Unavailable Caron Mohan MD Unavailable Pebbles Felton MD Unavailable [phone] Encounter Details Date Type Department Care Team (Late st Contact Info) Description 06/29/2021 Telephone [place] [facility] [address] [facility] [address] [place] [address] Francisco Long MD [address] [place] [address] [address] [place] [address] Social History Tobacco Use Types [...] on file 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 Gender Identity Not on file Sexual Orientation Not on file documented as of this encounter Miscellaneous Notes * Addendum Note - Jami Noel MA - 06/30/2021 4:17 PM CDTAddended by: JAMI NOEL on: 06/30/2021 04:17 PM Modules accepted: Orders * Telephone Encounter - Jami Noel MA - 06/29/2021 4:02 PM CDT LMOM to call office * Telephone Encounter - Jami Noel MA - 06/29/2021 4:01 PM CDT ----- Message from Francisco Long MD sent at 06/29/2021 6:15 AM CDT ----- Laboratory workup all looks good except patient is low on iron was begin iron supplementation dailythis will be called into her local pharmacy repeat iron profile CBC before next appointment Bone density test shows low bone mass previously called osteopenia patient should take 1200 mg of calcium daily with food along with 2000 units vitamin D3 daily repeat bone density testing every 2 years documented in this encounter Plan of Treatment Not on file documented as of this encounter Visit Diagnoses Diagnosis Iron deficiency anemia, unspecified iron deficiency anemia type- Primary documented in this encounter Orders Lab Orders Without Results Count Last Ordered D ate First Ordered Date CBC WITH AUTO DIFFERENTIAL 1 06/30/2021 IRON PROFILE W/ IBC 1 06/30/2021 documented in this encounter Care Teams Business Coordinator Relationship Specialty Start Date End Date Francisco Long MD PCP - General 02/23/17 05/15/22 Neil Ag MD PhD 6 [place] [address] Radiation Oncologist Radiation Oncology 12/17/18 [place] [address] [address] [facility] 120 [place] [place] [id number] Referring Physician General Surgery 12/17/18 [place] [address] [facility] [facility] [address] [employer] [place] [id number] Medical Oncologist/Factory Manager Medical Oncology 12/17/18 [place] [address] [facility] [address] [facility] [place] [id number] Consulting Physician Gastroenterology 01/07/20 documented as of this encounter
--- OUTSIDE RECORDS SUMMARY | 2024-11-16 12:56 | XMS_ITS | Encounter Summary ---
Author Organization [facility] Address [address] [place] [address] Care Team Providers Care Traveling Clerk Name Role Phone Francisco Long MD Primary Care Provider [phone] Neil Ag MD PhD Unavailable [phone] Ita estrada MD Unavailable Caron Mohan MD Unavailable Pebbles Felton MD Unavailable [phone] Reason for Referral * Diagnostic Imaging (Routine) - Closed Specialty Diagnoses / Procedures Referred By Contac t Referred To Contact Diagnoses Vitamin D deficiency Screening for osteoporosis Post-menopausal Procedures Dexa Axial Skeleton Bone Density 1 or 2 Site Francisco Long MD Phone: tel: fax: [address] [address] Referral ID Status Reason Start Date Expiration Date Visits Re quested Visits Authorized [id number] Closed 11/01/2020 12/01/2021 1 1 Reason for Visit * Diagnostic Imaging (Routine) - Closed Specialty Diagnoses / Procedures Referred By Contac t Referred To Contact Diagnoses Vitamin D deficiency Screening for osteoporosis Post-menopausal Procedures Dexa Axial Skeleton Bone Density 1 or 2 Site Francisco Long MD Phone: tel: fax: [address] [address] Referral ID Status Reason Start Date Expiration Date Visits Re quested Visits Authorized [id number] Closed 11/01/2020 12/01/2021 1 1 Encounter Details Date Type Department Care Team (Latest Contact Info) Description 06/28/2021 9:41 AM CDT - 06/28/2021 11:59 PM CDT Hospital Encounter [facility] [address] [place] [address] Francisco Long MD [address] [facility] [address] [place] [id number] Vitamin D deficiency; Screening for osteoporosis; Post-menopausal Discharge Disposition: Discharge to home or self [...] on file 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 Gender Identity Not on file Sexual Orientation Not on file documented as of this encounter Medications at Time of Discharge letrozole (FEMARA) 2.5 mg tablet Take 1 tablet (2.5 mg total) by mouth daily methotrexate 2.5 mg tabletIndication s:Rheumatoid Arthritis Take 1 tablet (2.5 mg total) by mouth every 7 days Takes 6 tablets every Sunday carvediloL (COREG) 6.25 mg tablet TAKE ONE [...] daily 30 tablet 11 03/25/2021 4 white petrolatum-ore miner blasting al oil (white petrolatum-ore miner blasting al oiL) ointment Apply 1 application to left eye 2 (two) times a day 3.5 g 04/24/2021 2 documented as of this encounter Discharge Disposition Disposition Code Departure Means Destination Discharge to home or self care documented in this encounter Miscellaneous Notes * Result Encounter Note - Francisco Long MD - 06/28/2021 12:32 PM CDT Bone density test shows low bone mass [...] SITES Schedule Routine, Read Routine (OP Routine) 06/28/2021 9:52 AM CDT Vitamin D deficiency Screening for osteoporosis Post-menopausal documented in this encounter Results * Dexa Axial Skeleton Bone Density 1 or 2 Site (06/28/2021 9:52 AM CDT) Anatomical Region Laterality Modality Body N/A Other 06/28/2021 9:58 AM CDT Narrative 06/28/2021 9:59 AM CDT EXAM DESCRIPTION: ?? DEXA AXIAL SKELETON BONE DENSITY 1 OR MORE SITES REASON FOR STUDY: ?? 75 year old ??female with given history of postmenopausal screening. Gis Geographer/Model: ?? Spor Chargers Discovery SL ([id number]/N [id number]) CLINICAL INFORMATION: ??Current height: ??67 inches ? Maximum height: 67 inches ? Weight: 187 pounds Risk factors: Postmenopausal, rheumatoid arthritis, no regular dairy product consumption, drinks caffeinated beverages. Reported use of vitamin-D and calcium. COMPARISON: ?? 03/11/2019 FINDINGS: AP LUMBAR SPINE L1-L4: Total BMD is ??1.132 g/cm2 T-score is 0.8 Most recent prior BMD was 1.148 g/cm2 There has been a 1.4% decrease in BMD which is not statistically significant. LEFT HIP: Current Total BMD is 0.909 g/cm2 T-score is -0.3 Most recent prior Total BMD was 0.940 g/cm2 There has been a 3.3% decrease in BMD which is statistically significant. Current femoral neck BMD is 0.738 g/cm2 T-score is -1.0 FRAX not reported because all T-scores at or above -1.0. IMPRESSION: ?? Normal bone mineral density by WHO classification. REFERENCE: ??Bone mineral density: ? Normal (T-score above or = -1.0) ? Low bone mass ??(T-score between -1.0 and -2.5) replaces the previously used term osteopenia ? Osteoporosis (T-score = or below -2.5) Medical evaluation for secondary causes of low [...] greater than 3% should be considered for treatment. For further information, including treatment recommendations, please refer to the 2013 ISCD Official Positions (http://www.iscd.org) and the NOF's Clinician's Guide to Prevention and Treatment of Osteoporosis (http://www.nof.org/professionals/clinical-guidelines) THIS IS AN ELECTRONICALLY VERIFIED FINAL REPORT 06/28/2021 9:59 AM - Electronically signed by Berry Whitfield M.D. MD: D: ??06/28/2021 9:59 AM T: ??06/28/2021 9:59 AM Report ID: [id number] Reading Location: ??[id number] Procedure Note Berry Whitfield MD - 06/28/2021 EXAM DESCRIPTION: DEXA AXIAL SKELETON BONE DENSITY 1 OR MORE SITES REASON FOR STUDY: 75 year old female with given history ofpostmenopausal screening. Gis Geographer/Model: Spor Chargers Discovery SL (S/N [id number]) CLINICAL INFORMATION: Current height: 67 inches Maximum height: 67 inches Weight: 187 pounds Risk factors: Postmenopausal, rheumatoid arthritis, no regular dairyproduct consumption, drinks caffeinated beverages. Reported use of vitamin-D and calcium. COMPARISON: 03/11/2019 FINDINGS: AP LUMBAR SPINE L1-L4: Total BMD is 1.132 g/cm2 T-score is 0.8 Most recent prior BMD was 1.148 g/cm2 There has been a 1.4% decrease in BMD which is not statisticallysignificant. LEFT HIP: Current Total BMD is 0.909 g/cm2 T-score is -0.3 Most recent prior Total BMD was 0.940 g/cm2 There has been a 3.3% decrease in BMD which is statisticallysignificant. Current femoral neck BMD is 0.738 g/cm2 T-score is -1.0 FRAX not reported because all T-scores at or above -1.0. IMPRESSION: Normal bone mineral density by WHO classification. REFERENCE: Bone mineral density: Normal (T-score above or = -1.0) Low bone mass (T-score between -1.0 and -2.5) replaces thepreviously used term osteopenia Osteoporosis (T-score = or below -2.5) Medical evaluation for secondary causes of low [...] or greaterthan 3% should be considered for treatment. For further information, including treatment recommendations, please referto the 2013 ISCD Official Positions (http://www.iscd.org) and the NOF's Clinician's Guide to Prevention and Treatment of Osteoporosis (http://www.nof.org/professionals/clinical-guidelines) THIS IS AN ELECTRONICALLY VERIFIED FINAL REPORT 06/28/2021 9:59 AM - Electronically signed by Berry Whitfield M.D. MD: Report ID: [id number] Reading Location: [place] [address] Francisco Long MD IMG DXA PROCEDURES Final Resul t documented in this encounter Visit Diagnoses Diagnosis Vitamin D deficiency Screening for osteoporosis Special screening for osteoporosis Post-menopausal Asymptomatic postmenopausal status (age-related) (natural) documented in this encounter Care Teams Traveling Clerk Relationship Specialty Start Date End Date Francisco Long MD PCP - General 02/23/17 05/15/22 Neil Ag MD PhD 6 [place] [address] Radiation Oncologist Radiation Oncology 12/17/18 [place] [address] [address] [facility] [address] [place] [id number] Referring Physician General Surgery 12/17/18 [place] [address] [facility] [facility] [address] [place] [address] Medical Oncologist/Hydrogen Plant Operator Medical Oncology 12/17/18 [place] [address] [facility] [address] [place] [address] Consulting Physician Gastroenterology 01/07/20 documented as of this encounter
--- OUTSIDE RECORDS SUMMARY | 2024-11-16 12:56 | XMS_ITS | Encounter Summary ---
Author Organization [facility] Address [address] [place] [address] Care Team Providers Care Bilingual Case Manager Name Role Phone Francisco Long MD Primary Care Provider [phone] Neil Ag MD PhD Unavailable [phone] Ita estrada MD Unavailable Caron Mohan MD Unavailable Pebbles Felton MD Unavailable [phone] Encounter Details Date Type Department Care Team (Late st Contact Info) Description 03/22/2021 Telephone [place] [facility] [address] [facility] [address] [place] [address] Francisco Long MD [address] [place] [address] [address] [place] [address] Social History Tobacco Use Types [...] on file 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 Please advise. documented in this encounter Plan of Treatment Not on file documented as of this encounter Visit Diagnoses Not on filedocumented in this encounter Care Teams Bilingual Case Manager Relationship Specialty Start Date End Date Francisco Long MD PCP - General 02/23/17 05/15/22 Neil Ag MD PhD [address] [place] [address] Radiation Oncologist Radiation Oncology 12/17/18 [place] [address] [facility] [address] [place] [address] Referring Physician General Surgery 12/17/18 [place] [address] [facility] [address] [place], [place] [id number] Medical Oncologist/Market Maker Medical Oncology 12/17/18 [place] [address] [facility] [address] [place] [address] Consulting Physician Gastroenterology 01/07/20 documented as of this encounter
--- OUTSIDE RECORDS SUMMARY | 2024-11-16 12:56 | XMS_ITS | Encounter Summary ---
Author Organization [facility] Address [address] [facility] [address] [place] [address] Care Team Providers Care Stone Layer Name Role Phone Francisco Long MD Primary Care Provider [phone] Neil Ag MD PhD Unavailable [phone] Ita estrada MD Unavailable Caron Mohan MD Unavailable Pebbles Felton MD Unavailable [phone] Reason for Visit * Reason Comments Shi's Palsy Left sided 1 month f /u Encounter Details Date Type Department Care Team (Late st Contact Info) Description 05/26/2021 10:15 AM CDT Office Visit [facility] [address] [facility] [address] [place] [address] Francisco Long MD [address] [place] [address] [address] [place], [place] [id number] 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) (Primary Dx); Body mass index (BMI) 29.0-29.9, adult; Blood loss anemia; History of DVT (deep vein thrombosis) Social History Tobacco Use Types Packs/Day Years [...] on file 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 Gender Identity Not on file Sexual Orientation Not on file documented as of this encounter Last Filed Vital Signs Vital Sign Reading Time Taken Comments Blood Pressure 130/70 05/26/2021 10:14 AM CDT Pulse 60 05/26/2021 10:14 AM CDT Temperature - - Respiratory Rate 20 05/26/2021 10:14 AM CDT Oxygen Saturation - - Inhaled Oxygen Concentration - - Weight 84.8 kg (187 lb) 05/26/2021 10:14 AM CDT Height 170.2 cm (5' 7 ) 05/26/2021 10:14 AM CDT Body Mass Index 29.29 05/26/2021 10:14 AM CDT documented in this encounter Progress Notes * Francisco Long MD - 05/26/2021 10:15 AM CDT Subjective/Objective Patient ID: Jolene Cedillo is a 75 y.o. female. Chief Complaint Shi's Palsy (Left sided 1 month f/u) New diabetes hypertension history of GI bleed history of anemia HPI Patient returns today she states her Shi's palsy is improving dramatically she can move her left side of her face and mouth much better she can close dry more completely she is she states she does not need to use eye patch any longer She has had no melena no hematochezia he is compliant with her blood pressure medication. Recently her hemoglobin is stabilize quite normal she has had complete GI workup but no evidence of GI bleeding that could be found including capsule endoscopy EGD and colonoscopy since being off the anticoagulation therapy the patient has had no problems with blood loss are anemia Her sugar reveals that she has diabetes does run in her family she has no polyuria polydipsia neverbeen told that she had in the past no blurred vision no polyuria no polydipsia Review of Systems patient does not exercise does not following a particular diet she is accompaniedby her today they like to go RV camping in their motor home or their 5th wheel Vitals: 05/26/21 1014 BP: 130/70 BP Location: Left arm Patient Position: Sitting Pulse: 60 Resp: 20 Weight: 84.8 kg (187 lb) Height: 170.2 cm (5' 7 ) Physical Exam Feet: Right Foot: Monofilament exam: normal. Left Foot: Monofilament exam: normal. She is pleasant no distress her blood pressures confirmed 130/70 lungs clear cardiovascular regularabdomen soft nontender extremities no edema monofilament test is normal Assessment/Plan Diagnoses and all orders for this visit: 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) (Primary) Will check A1c test today courage to Eat 40 carbs less per meal 45 minutes walk daily for A1c test is elevated will have her start monitoring blood sugars and start metformin her who accompanies her today has diabetes as well Body mass index (BMI) 29.0-29.9, adult She is overweight she will work harder on daily exercise and caloric restriction carb counting and weight loss Blood loss anemia Her hemoglobin has stayed stable normal she is doing great no melena no hematochezia History of DVT (deep vein thrombosis) She is off anticoagulation therapy doing fine signs symptoms of recurrence discussed with patient any problems let us know immediately or proceed directly to the ER Side effects, risks, interactions reviewed with patient. [...] 2 diabetes mellitus with hyperlipidemia (HCC)- Primary Body mass index (BMI) 29.0-29.9, adult Blood loss anemia Acute posthemorrhagic anemia History of DVT (deep vein thrombosis) documented in this encounter Care Teams Stone Layer Relationship Specialty Start Date End Date Francisco Long MD PCP - General 02/23/17 05/15/22 Neil Ag MD PhD 6 [place] [address] Radiation Oncologist Radiation Oncology 12/17/18 [place] [address] [facility] [address] [employer], [place] [id number] Referring Physician General Surgery 12/17/18 [place] [address] [facility] [address] [employer], [place] [id number] Medical Oncologist/Financial Advocate Medical Oncology 12/17/18 [place] [address] [facility] [address] [employer] [address] Consulting Physician Gastroenterology 01/07/20 documented as of this encounter
--- OUTSIDE RECORDS SUMMARY | 2024-11-16 12:56 | XMS_ITS | Encounter Summary ---
Author Organization [facility] Address [address] [place] [address] Care Team Providers Care Can Labeler Name Role Phone Francisco Long MD Primary Care Provider [phone] Neil Ag MD PhD Unavailable [phone] Ita estrada MD Unavailable Caron Mohan MD Unavailable Pebbles Fleton MD Unavailable [phone] Encounter Details Date Type Department Care Team (Late st Contact Info) Description 02/03/2021 Telephone [facility] [address] [facility] [address] [place] [address] Francisco Long MD [address] [place] [address] [address] [place] [address] Social History Tobacco Use Types [...] points, staff should administer the PHQ-9) 0 02/10/2021 Hunger Vital Sign Answer Date Recorded Worried [...] on file 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 Chun was out of the office on 02/03 and 02/04. He will also be out of the office this whole week. She just wanted JR to be aware * Telephone Encounter - Jami Pettit MA - 02/04/2021 9:32 AM HAM CURER Patient aware appt scheduled for 02/10/21 at 1:00 CURER * Telephone Encounter - Francisco Long MD - 02/03/2021 3:48 PM CST I left a message no answer I attempted to call Dr. Chun is office 3rd time each time of calledhis office is been close off the try Sunday morning or around lunchtime see if I can get in touch with him regarding the possibility that methotrexate could because of her GI bleeding I related results of her capsule endoscopy to the patient and recommended she stay off the Eliquis for now if she develops any chest pain shortness of breath leg swelling consistent with a recurrent deep venous thrombosis or emboli she is to go directly to emergency room Schedule patient to see me early next week in the office to discuss further CURER * Telephone Encounter - Jami Pettit MA - 02/03/2021 2:22 PM HAM CURER Is she supposed to restart any of her medications, that were stopped CURER * Telephone Encounter - Francisco Long MD - 02/03/2021 1:55 PM CST Okay to leave a message capsule endoscopy unfortunately was read his inadequate study with limited evaluation of the distal small intestine no blood was noted Dr. eyad osullivan said the patient could repeat this study if needed full 2 day intestine preparation to make sure that she was cleaned out completely CURER documented in this encounter Plan of Treatment Not on file documented as of this encounter Visit Diagnoses Not on filedocumented in this encounter Care Teams Can Labeler Relationship Specialty Start Date End Date Francisco Long MD PCP - General 02/23/17 05/15/22 Neil Ag MD PhD [address] [place] [id number] Radiation Oncologist Radiation Oncology 12/17/18 [place] [address] [place], [place] [id number] Referring Physician General Surgery 12/17/18 [place] [address] [place], [place] [id number] Medical Oncologist/Plastic Surgery Specialist Medical Oncology 12/17/18 [place] [address] [place] [address] Consulting Physician Gastroenterology 01/07/20 documented as of this encounter
--- OUTSIDE RECORDS SUMMARY | 2024-11-16 12:56 | XMS_ITS | Encounter Summary ---
Author Organization [facility] Address [address] [place] [address] Care Team Providers Care Dry Cans Operator Name Role Phone Francisco Long MD Primary Care Provider [phone] Neil Ag MD PhD Unavailable [phone] Ita estrada MD Unavailable Caron Mohan MD Unavailable Pebbles Felton MD Unavailable [phone] Reason for Visit * Reason Comments discuss medications Encounter Details Date Type Department Care Team (Late st Contact Info) Description 03/09/2021 10:30 AM CDT Office Visit [facility] [address] [facility] [address] [place] [address] Larry Wetzel PA [address] [place] [address] [address] [place] [address] 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 rheumatoid factor (CMS/HCC) (Primary Dx); BMI 28.0-28.9,adult; Anemia, unspecified type; Essential hypertension; Hiatal hernia Social History Tobacco Use Types Packs/Day Years Used Date Smoking Tobacco: Never Smokeless Tobacco: Never Tobacco Cessation:Counseling Given: No Alcohol Use Standard Drinks/Week Comments No 0 [...] on file 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 Gender Identity Not on file Sexual Orientation Not on file documented as of this encounter Last Filed Vital Signs Vital Sign Reading Time Taken Comments Blood Pressure 146/98 03/09/2021 10:20 AM CDT Pulse 78 03/09/2021 10:20 AM CDT Temperature - - Respiratory Rate - - Oxygen Saturation 98% 03/09/2021 10:20 AM CDT Inhaled Oxygen Concentration - - Weight 83 kg (183 lb) 03/09/2021 10:20 AM CDT Height 170.2 cm (5' 7 ) 03/09/2021 10:20 AM CDT Body Mass Index 28.66 03/09/2021 10:20 AM CDT documented in this encounter Patient Instructions * Patient Instructions* Larry Wetzel PA - 03/09/2021 10:30 AM CDT My medical laboratory scientist, Winter, and I are thankful you have trusted us with your care, and hope thatyou received EXCELLENT care today! Please do not hesitate to call if you have any questions or concerns. You may receive a phone call or text asking about your care today. We would love to hear your input and again, hope your visit was as EXCELLENT as possible, even if you were not feeling your best! -Larry Wetzel PA-C documented in this encounter Progress Notes * Larry Wetzel PA - 03/09/2021 10:30 AM CDT Subjective/Objective Patient ID: Jolene Cedillo is a 75 y.o. female. 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 Recently taken off Eliquis due to GI bleed. She was on MTX (6 pills a week) for her RA but taken off that as well as that could also cause GI bleeding. She has had EGD, VCE , as below, which were overall negative, however for the latter it was not a well-cleaned exam. She also has large hiatal hernia. She presents today c/o worsening joint aches since being off the MTX, hunter in the R arm, hands, knees. She is s/p BL TKA. Pain worse w/ moving around, walking, and it is affecting her ADLs in that shedoes not want to do the grocery shopping, other chores, due to the joint paint. No f/c. No rash. She is not currently taking anything for pain with the exception of Tylenol p.m. at bedtime only. Her semiautomatic stitcher operator is Adiel. Pt tried to call their office and apparently he was on vacation and so is unsure what to do about her joint pain and the MTX. Review of Systems Constitutional: Negative for chills and fever. Respiratory: Negative for cough, shortness of breath and wheezing. Cardiovascular: Negative for chest pain. Gastrointestinal: Negative for abdominal pain and blood in stool (no gross blood noted). Musculoskeletal: Positive for arthralgias (joint pain, stiffness). Vitals: 03/09/21 1020 BP: 146/98 BP Location: Right arm Patient Position: Sitting Pulse: 78 SpO2: 98% Weight: 83 kg (183 lb) Height: 170.2 cm (5' 7 ) Physical Exam Constitutional: General: She is not in acute distress (pleasnat NAD). Cardiovascular: Rate and Rhythm: Normal rate and regular rhythm. Heart sounds: Normal heart sounds. No murmur. Pulmonary: Breath sounds: Normal breath sounds. No wheezing, rhonchi or rales. Musculoskeletal: General: Swelling, tenderness and deformity (arthritis changes noted hunter hands) present. Right lower leg: No edema. Left lower leg: No edema. Skin: Findings: No rash. Impression: - Normal examined duodenum. Biopsied. - Erythematous mucosa in the prepyloric region of the stomach. Biopsied. - Large hiatal hernia. Recommendation: - Await pathology results. - Continue present medications. - No source of upper GI bleeding noted. Anemia could be secondary to methotrexate versus small-bowel slow bleeding or very likely secondary to the large hiatal hernia which has been associated with iron deficiency anemia. Will schedule video capsule endoscopy. Depending on the patient comorbid conditions 1 May consider surgical repair of the large hiatal hernia. Assessment/Plan Diagnoses and all orders for this visit: 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 rheumatoid factor ([facility]) (Primary) Comments: Will reach out to GI regarding the possibility of restarting the MTX. for now, suggest tylenol, up to 3000mg a day. I also encourage her to call Dr. Chun's (rheum) office for guidance as he is the prescriber for this. ADDENDUM: I spoke w/ Dr. Felton who feels her anemia is not a GI bleed issue, but rather relatedto chronic disease and her hiatal hernia. He states if we have to resume MTX we can if we closely monitor the CBC and iron panel. I spoke w/ pt on 03/11 and she states she is doing well with tylenol, 1-2 a day. We will cont with that instead of the MTX for now, and she may wish to consult Adiel for further recs. BMI 28.0-28.9,adult Anemia, unspecified type Comments: Hemoglobin has gone up a notch. Reviewed GI notes and procedure reports. Recheck CBC and iron panelahead of next visit 1 month Essential hypertension Comments: Borderline high and recheck upon return Recommend DASH diet, heart healthy lifestyle, exercise. Discussed the risks of hypertension. Hiatal hernia Will refer to surgery for consultation on this . Side effects, risks, interactions reviewed with patient. Indications for testing discussed. Any further problems to contact us. She was told what to look out for and verbalized understanding. The patient was given the opportunity to have all questions answered today and was in agreement with the plan of care. Cosigned by Francisco Long MD at 03/11/2021 4:47 PM CDT * Anitra Pinto - 03/09/2021 10:30 AM CDT Referral placed his office will call the pt to set up appt documented in this encounter Plan of Treatment Not on file documented as of this encounter Visit Diagnoses Diagnosis 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 rheumatoid factor (CMS/HCC) (HCC)- Primary BMI 28.0-28.9,adult Anemia, unspecified type Essential hypertension Unspecified essential hypertension Hiatal hernia Diaphragmatic hernia without mention of obstruction or gangrene documented in this encounter Discontinued Medications Medication Sig Discontinue Reason Start Date End Da te apixaban (ELIQUIS) 5 mg tabletIndications:deep venous thrombosis Take 1 tablet (5 mg total) by mouth 2 (two) times a day 12/09/2019 03/09/2021 documented as of this encounter Care Teams Dry Cans Operator Relationship Specialty Start Date End Date Francisco Long MD PCP - General 02/23/17 05/15/22 Neil Ag MD PhD [address] [place] [address] Radiation Oncologist Radiation Oncology 12/17/18 [place] [address] [facility] [address] [place] [address] Referring Physician General Surgery 12/17/18 [place] [address] [facility] [address] [place], [place] [id number] Medical Oncologist/Messenger Floorperson Medical Oncology 12/17/18 [place] [address] [facility] [address] [place] [address] Consulting Physician Gastroenterology 01/07/20 documented as of this encounter
--- OUTSIDE RECORDS SUMMARY | 2024-11-16 12:56 | XMS_ITS | Encounter Summary ---
Author Organization [facility] Address [address] [place] [address] Care Team Providers Care Specialty Sales Consultant Name Role Phone Francisco Long MD Primary Care Provider [phone] Neil Ag MD PhD Unavailable [phone] Ita estrada MD Unavailable Caron Mohan MD Unavailable Pebbles Felton MD Unavailable [phone] Reason for Visit * Reason Comments GI Bleeding f/u Encounter Details Date Type Department Care Team (Late st Contact Info) Description 02/10/2021 1:00 PM CDT Office Visit [facility] [address] [facility] [address] [place] [address] Francisco Long MD [address] [place] [address] [address] [place] [address] Essential hypertension (Primary Dx); Body mass index (BMI) 28.0-28.9, adult; Anemia, unspecified type Social History Tobacco Use Types Packs/Day Years [...] on file 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 Gender Identity Not on file Sexual Orientation Not on file documented as of this encounter Last Filed Vital Signs Vital Sign Reading Time Taken Comments Blood Pressure 128/80 02/10/2021 12:54 PM CDT Pulse 60 02/10/2021 12:54 PM CDT Temperature - - Respiratory Rate 20 02/10/2021 12:54 PM CDT Oxygen Saturation - - Inhaled Oxygen Concentration - - Weight 83 kg (183 lb) 02/10/2021 12:54 PM CDT Height 170.2 cm (5' 7 ) 02/10/2021 12:54 PM CDT Body Mass Index 28.66 02/10/2021 12:54 PM CDT documented in this encounter Progress Notes * Francisco Long MD - 02/10/2021 1:00 PM CDT Subjective/Objective Patient ID: Jolene Cedillo is a 75 y.o. female. Chief Complaint GI Bleeding (f/u) HPI 75-year-old seen today for follow-up she states she has been off the methotrexate has had no melenano hematochezia she has also been off the Eliquis no GI bleeding feels good feels much but she did hemoglobin is up to 10.3 no black stools no bloody stools her formation testing operator is out of town for the next week Review of Systems Vitals: 02/10/21 1254 BP: 128/80 BP Location: Left arm Patient Position: Sitting Pulse: 60 Resp: 20 Weight: 83 kg (183 lb) Height: 170.2 cm (5' 7 ) Physical Exam She is pleasant no distress examination of the joint some of the hands reveal no active synovitis no ulnar deviation lungs clear abdomen soft nontender Assessment/Plan Diagnoses and all orders for this visit: Essential hypertension (Primary) Blood pressure is doing great will continue current regimen we went over each of her medications today she brought in every bottle Body mass index (BMI) 28.0-28.9, adult She will try to work will harder on lose little bit a weight who we sent terrible she is overweightbut nothing bad Anemia, unspecified type Hemoglobin improving up to 10.3 stay off the methotrexate for now stay off the Eliquis for now if she has recurrent DVT or pulmonary embolus then she will need Eliquis lifelong Side effects, risks, interactions reviewed with patient. [...] hypertension Body mass index (BMI) 28.0-28.9, adult Anemia, unspecified type documented in this encounter Care Teams Specialty Sales Consultant Relationship Specialty Start Date End Date Francisco Long MD PCP - General 02/23/17 05/15/22 Neil Ag MD PhD [address] [place] [address] Radiation Oncologist Radiation Oncology 12/17/18 [place] [address] [place] [address] Referring Physician General Surgery 12/17/18 [place] [address] [place] [address] Medical Oncologist/Waste Duster Medical Oncology 12/17/18 [place] [address] [facility] [address] [place] [address] Consulting Physician Gastroenterology 01/07/20 documented as of this encounter
--- OUTSIDE RECORDS SUMMARY | 2024-11-16 12:56 | XMS_ITS | Encounter Summary ---
Author Organization [facility] Medical [facility] Address [address] [facility] [address] [place] [address] Care Team Providers Care Clinical Social Worker Name Role Phone Francisco Long MD Primary Care Provider [phone] Neil Ag MD PhD Unavailable [phone] Ita estrada MD Unavailable Caron Mohan MD Unavailable Pebbles Felton MD Unavailable [phone] Encounter Details Date Type Department Care Team (Late st Contact Info) Description 05/26/2021 Orders Only [facility] [facility] [address] [facility] [address] [place] [address] Francisco Long MD [address] [place] [address] [address] [place] [address] 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) (Primary Dx); Anemia, unspecified type; Essential hypertension; Encounter for therapeutic drug monitoring Social History [...] on file 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 Gender Identity Not on file Sexual Orientation Not on file documented as of this encounter Miscellaneous Notes * Result Encounter Note - Francisco Long MD - 06/29/2021 6:15 AM CDT Laboratory workup all looks good except patient is low on iron was begin iron supplementation dailythis will be called into her local pharmacy repeat iron profile CBC before next appointment * Result Encounter Note - Francisco Long MD - 05/27/2021 6:41 AM CDT Okay to leave a message A1c test 7.0 goal is 7.0 or less so right now she is doing fine with her sugar diabetes on current diet exercise regimen documented in this encounter Plan of Treatment Scheduled Orders Name Type Priority Associated Diagnoses Orde r Schedule Basic metabolic panel Lab Routine 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) Anemia, unspecified type Essential hypertension Encounter for therapeutic drug monitoring Expected: 09/21/2021 (Approximate), Expires: 05/26/2022 documented as of this encounter Procedures Procedure Name Priority Date/Time Associated Diagnosis Comments LIPID PANEL WITH REFLEX TO DIRECT LDL Routine 06/28/2021 8:29 AM CDT IRON PROFILE W/ IBC Routine 06/28/2021 8 :29 AM CDT 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) (HCC) Anemia, unspecified type Essential hypertension Encounter for therapeutic drug monitoring CBC WITH AUTO DIFFERENTIAL Routine 06/28/2021 8:29 AM CDT 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) (HCC) Anemia, unspecified type Essential hypertension Encounter for therapeutic drug monitoring VITAMIN D 25 HYDROXY Routine 06/28/2021 8:29 AM CDT HEMOGLOBIN A1C Routine 06/28/2021 8:29 AM CDT 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) (HCC) Anemia, unspecified type Essential hypertension Encounter for therapeutic drug monitoring COMPREHENSIVE METABOLIC PANEL Routine 06/28/2021 8:29 AM CDT ALBUMIN CREATININE RATIO, URINE Routine 05/26/2021 11:43 AM CDT 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) HEMOGLOBIN A1C Routine 05/26/2021 11:43 AM CDT 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) documented in this encounter Results * (ABNORMAL) Comprehensive metabolic panel (06/28/2021 8:29 AM CDT) [facility] Glucose 154(H) 65 - 99 mg/dL [facility] Comment: ? Fasting reference interval For someone without known diabetes, a glucose value >125 mg/dL indicates that they may have diabetes and this should be confirmed with a follow-up test. BUN 19 7 - 25 mg/dL [facility] Creatinine 0.81 0.60 - 0.93 mg/dL [facility] Comment: For patients >49 years of age, the reference limit for Creatinine is approximately 13% higher for people identified as -Thai. eGFR NON-AFR. ZIMBABWEAN 72 > OR = 60 mL/min/1 .73m2 [facility] EGFR 83 > OR = 60 mL/min/1 .73m2 [facility] BUN/creat ratio NOT APPLICABLE 6 - 22 (calc) [facility] Sodium 141 135 - 146 mmol/L [facility] Potassium, pl 4.4 3.5 - 5.3 mmol/L [facility] Chloride 103 98 - 110 mmol/L [facility] CO2 28 20 - 32 mmol/L [facility] Calcium 9.3 8.6 - 10.4 mg/dL [facility] Protein, sr 6.1 6.1 - 8.1 g/dL [facility] Albumin 4.0 3.6 - 5.1 g/dL [facility] GLOBULIN 2.1 1.9 - 3.7 g/dL (calc) [facility] Alb/glob ratio 1.9 1.0 - 2.5 (calc) [facility] Bilirubin, total 0.5 0.2 - 1.2 mg/dL [facility] Alk phos 69 37 - 153 U/L [facility] AST 15 10 - 35 U/L [facility] ALT (SGPT) 13 6 - 29 U/L [facility] 06/28/2021 8:29 AM CDT 06/28/2021 8:30 AM CDT Narrative [facility] - 06/29/2021 1:44 AM CDT FASTING:YES FASTING: YES us Francisco Long MD LAB BLOOD ORDERABLES Final Res ult [facility] [address] [place] [address] * Lipid panel with reflex to direct LDL (06/28/2021 8:29 AM CDT) Cholesterol 171 <200 mg/dL [facility] HDL 66 > OR = 50 mg/dL [facility] Triglycerides 139 <150 mg/dL [facility] LDL 81 mg/dL (calc) [facility] Comment: Reference range: <100 Desirable range <100 mg/dL for primary prevention; ?? <70 mg/dL for patients with CHD or diabetic patients with > or = 2 CHD risk factors. LDL-C is now calculated using the Harry-Brooks calculation, which is a validated novel method providing better accuracy than the Friedewald equation in the estimation of LDL-C. Harry SS et al. RANDALL. 2013;310(19): 5847-8701 (http://education.Linqia/faq/VBO216) Chol/HDL ratio 2.6 <5.0 (calc) [facility] Non-HDL, (LDL+VLDL) 105 <130 mg/dL (calc) [facility] Comment: For patients with diabetes plus 1 major ASCVD risk factor, treating to a non-HDL-C goal of <100 mg/dL (LDL-C of <70 mg/dL) is considered a therapeutic option. 06/28/2021 8:29 AM CDT 06/28/2021 8:30 AM CDT Narrative [facility] - 06/29/2021 1:44 AM CDT FASTING:YES FASTING: YES us Francisco Long MD LAB BLOOD ORDERABLES Final Res ult Performing Organization Address City/State/[facility] Co de Phone Number [facility] [address] [place] [address] * Vitamin D 25 hydroxy (06/28/2021 8:29 AM CDT) [facility] Vitamin D 25-OH 34 30 - 100 ng/mL [facility] Comment: Vitamin D Status ? 25-OH Vitamin D: Deficiency: ?<20 ng/mL Insufficiency: ? 20 - 29 ng/mL Optimal: ? > or = 30 ng/mL For 25-OH Vitamin D testing on patients on D2-supplementation and patients for whom quantitation of D2 and D3 fractions is required, the QuestAssure[facility](TM) 25-OH VIT D, (D2,D3), LC/MS/MS is recommended: order code 86184 (patients >2yrs). See Note 1 Note 1 For additional information, please refer to http://education.Linqia/faq/XZK672 (This link is being provided for informational/ educational purposes only.) 06/28/2021 8:29 AM CDT 06/28/2021 8:30 AM CDT Narrative [facility] - 06/29/2021 1:44 AM CDT FASTING:YES FASTING: YES Francisco Long MD LAB BLOOD ORDERABLES Final Res ult Performing Organization Address [facility] de Phone Number [facility] [address] [place] [address] * (ABNORMAL) Iron profile w/ IBC (06/28/2021 8:29 AM CDT) [facility] Iron 45 45 - 160 mcg/dL [facility] TIBC 403 250 - 450 mcg/dL (calc) [facility] Iron saturation 11(L) 16 - 45 % (calc) [facility] Blood specimen (specimen) 06/28/2021 8:29 AM CDT 06/28/2021 8:30 AM CDT Narrative [facility] - 06/29/2021 1:44 AM CDT FASTING:YES FASTING: YES Francisco Long MD LAB BLOOD ORDERABLES Final Res ult Performing Organization Address [facility] de Phone Number [facility] [address] [place] [address] * (ABNORMAL) CBC with auto differential (06/28/2021 8:29 AM CDT) [facility] WBC 6.3 3.8 - 10.8 Thousand/u L [facility] RBC, POC 4.54 3.80 - 5.10 Million/uL [facility] Hgb 12.1 11.7 - 15.5 g/dL [facility] Hct 39.2 35.0 - 45.0 % [facility] MCV 86.3 80.0 - 100.0 fL [facility] MCH 26.7(L) 27.0 - 33.0 pg [facility] MCHC 30.9(L) 32.0 - 36.0 g/dL [facility] Rdw 17.4(H) 11.0 - 15.0 % [facility] Platelets 179 140 - 400 Thousand/u L [facility] MPV 9.4 7.5 - 12.5 fL [facility] Neutrophils, abs 4,857 1,500 - 7,800 cells/uL [facility] Lymphocytes, abs 737(L) 850 - 3,900 cells/uL [facility] Monocyte abs 466 200 - 950 cells/uL [facility] Eosinophils, abs 189 15 - 500 cells/uL [facility] Basophils, abs 50 0 - 200 cells/uL [facility] Neutrophils 77.1 % [facility] Lymphocyte pct 11.7 % [facility] Monocytes 7.4 % [facility] Eosinophils 3.0 % [facility] Basophils 0.8 % [facility] Blood specimen (specimen) 06/28/2021 8:29 AM CDT 06/28/2021 8:30 AM CDT Narrative [facility] - 06/29/2021 1:44 AM CDT FASTING:YES FASTING: YES Francisco Long MD LAB BLOOD ORDERABLES Final Res ult [facility] [address] [place] [address] * (ABNORMAL) Hemoglobin A1c (06/28/2021 8:29 AM CDT) Hgb A1C 6.7(H) <5.7 % of total Hgb [facility] Blood specimen (specimen) 06/28/2021 8:29 AM CDT 06/28/2021 8:30 AM CDT Narrative [facility] - 06/29/2021 1:44 AM CDT FASTING:YES FASTING: YES Francisco Long MD LAB BLOOD ORDERABLES Final Res ult Performing Organization Address [facility] Co de Phone Number [facility] [address] [address] [address] * Albumin Creatinine Ratio, Urine (05/26/2021 11:43 AM CDT) Creatinine, ur 149 20 - 275 mg/dL [facility] Microalbumin, ur 1.3 See Note: mg/dL [facility] Comment: Reference Range: Reference Range Not established Microalbumin/creat ratio 9 <30 mcg/mg creat [facility] Comment: The ADA defines abnormalities in albumin excretion as follows: Category ? Result (mcg/mg creatinine) Normal ?<30 Microalbuminuria ? 30-299 Clinical albuminuria ?? > OR = 300 The ADA recommends that at least two of three specimens collected within a 3-6 month period be abnormal before considering a patient to be within a diagnostic category. Urine 05/26/2021 11:4 3 AM CDT 05/26/2021 11:44 AM CDT Francisco Long MD LAB URINE ORDERABLES Final Res ult Performing Organization Address [facility] de Phone Number [facility] [address] [place] [address] * (ABNORMAL) Hemoglobin A1c (05/26/2021 11:43 AM CDT) Hgb A1C 7.0(H) <5.7 % of total Hgb [facility] Blood specimen (specimen) 05/26/2021 11:43 AM CDT 05/26/2021 11:44 AM CDT Francisco Long MD LAB BLOOD ORDERABLES Final Res ult Performing Organization Address [facility] Co de Phone [facility] [address] [address] [place] [address] documented in this encounter Visit Diagnoses Diagnosis 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)- Primary Anemia, unspecified type Essential hypertension Unspecified essential hypertension Encounter for therapeutic drug monitoring documented in this encounter Care Teams Clinical Social Worker Relationship Specialty Start Date End Date Francisco Long MD PCP - General 02/23/17 05/15/22 Neil Ag MD PhD [address] [place] [address] Radiation Oncologist Radiation Oncology 12/17/18 [place] [address] [id number] Referring Physician General Surgery 12/17/18 [place] [address] [id number] Medical Oncologist/Hotel Service Manager Medical Oncology 12/17/18 [place] [address] [address] Consulting Physician Gastroenterology 01/07/20 documented as of this encounter
--- OUTSIDE RECORDS SUMMARY | 2024-11-16 12:56 | XMS_ITS | Encounter Summary ---
Author Organization [facility] Medical [facility] Address [address] [facility] [address] [place] [address] Care Team Providers Care Materials Planning Manager Name Role Phone Francisco Long MD Primary Care Provider [phone] Neil Ag MD PhD Unavailable [phone] Ita estrada MD Unavailable Caron Mohan MD Unavailable Pebbles Felotn MD Unavailable [phone] Encounter Details Date Type Department Care Team (Late st Contact Info) Description 02/21/2021 Telephone [facility] Gastroenterology at [address] [place] [address] Shayna Edge MA Social History Tobacco Use Types Packs/Day Years [...] on file 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 You can print the report (in the Media Section) and fax it to her PCP or the number listed. Thanks * Telephone Encounter - Pebbles Felton MD - 02/21/2021 2:52 PM CDT Results showed no blood in the small intestine, the intestine was not well cleaned. You can print the report (in the Media Section) and fax it to her PCP or the number listed. Thanks * Telephone Encounter - Shayna Edge MA - 02/21/2021 2:16 PM CDT Pt called wanting to know her results for her capsule, is going to have an up coming appt with dr quintana and would like to know so the dr will be notified Can be faxed to [phone] documented in this encounter Plan of Treatment Not on file documented as of this encounter Visit Diagnoses Not on filedocumented in this encounter Care Teams Materials Planning Manager Relationship Specialty Start Date End Date Francisco Long MD PCP - General 02/23/17 05/15/22 Neil Ag MD PhD [address] [place] [address] Radiation Oncologist Radiation Oncology 12/17/18 [place] [address] [address] [place] [id number] Referring Physician General Surgery 12/17/18 [place] [address] [address] [place] [id number] Medical Oncologist/Professor Of Sociology Medical Oncology 12/17/18 [place] [address] [address] [place] [address] Consulting Physician Gastroenterology 01/07/20 documented as of this encounter
--- OUTSIDE RECORDS SUMMARY | 2024-11-16 12:56 | XMS_ITS | Encounter Summary ---
Author Organization [facility] Medical [facility] Address [address] [facility] [address] [place] [address] Care Team Providers Care Wire Charger Name Role Phone Francisco Long MD Primary Care Provider [phone] Neil Ag MD PhD Unavailable [phone] Ita estrada MD Unavailable Caron Mohan MD Unavailable [phone] Pebbles Felton MD Unavailable [phone] Encounter Details Date Type Department Care Team (Late st Contact Info) Description 06/29/2021 Orders Only [facility] [facility] [address] [facility] [address] [place] [address] Francisco Long MD [address] [place] [address] [address] [place] [address] Social History Tobacco [...] on file 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 Gender Identity Not on file Sexual Orientation Not on file documented as of this encounter Ordered Prescriptions Prescription Sig Dispense Quantity Refills Last Filled Start Date End Date ferrous sulfate 325 mg (65 mg of elemental iron) tabletIndications: Iron Deficiency Anemia Take 1 tablet (325 mg total) by mouth daily with breakfast 30 tablet 11 06/29/2021 2 documented in this encounter Plan of Treatment Not on file documented as of this encounter Visit Diagnoses Not on filedocumented in this encounter Care Teams Wire Charger Relationship Specialty Start Date End Date Francisco Long MD PCP - General 02/23/17 05/15/22 Neil Ag MD PhD 6 [place] [address] Radiation Oncologist Radiation Oncology 12/17/18 [place] [address] [facility] [address] [place], [place] [address] Referring Physician General Surgery 12/17/18 [place] [address] [place], [place] [address] Medical Oncologist/Buttonhole Machine Operator Medical Oncology 12/17/18 [place] [address] [place] [address] Consulting Physician Gastroenterology 01/07/20 documented as of this encounter
--- OUTSIDE RECORDS SUMMARY | 2024-11-16 12:56 | XMS_ITS | Encounter Summary ---
Author Organization [facility] Medical [facility] Address [address] [facility] [address] [place] [address] Care Team Providers Care It Help Desk Technician Name Role Phone Francisco Long MD Primary Care Provider [phone] Neil Ag MD PhD Unavailable [phone] Ita estrada MD Unavailable Caron Mohan MD Unavailable [phone] Pebbles Felton MD Unavailable [phone] Encounter Details Date Type Department Care Team (Late st Contact Info) Description 03/21/2021 Orders Only [place] [facility] [address] [facility] [address] [place] [address] Francisco Long MD [address] [place] [address] [address] [place] [address] Iron deficiency anemia due to chronic blood loss (Primary Dx); Anemia, unspecified type Social History Tobacco Use [...] on file 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 Gender Identity Not on file Sexual Orientation Not on file documented as of this encounter Plan of Treatment Not on file documented as of this encounter Visit Diagnoses Diagnosis Iron deficiency anemia due to chronic blood loss- Primary Iron deficiency anemia secondary to blood loss (chronic) Anemia, unspecified type documented in this encounter Orders Lab Orders Without Results Count Last Ordered D ate First Ordered Date CBC WITH AUTO DIFFERENTIAL 1 03/21/2021 IRON PROFILE W/ IBC 1 03/21/2021 documented in this encounter Care Teams It Help Desk Technician Relationship Specialty Start Date End Date Francisco Long MD PCP - General 02/23/17 05/15/22 Neil Ag MD PhD [address] [place] [id number] Radiation Oncologist Radiation Oncology 12/17/18 [place] [address] [facility] [address] [place], [place] [id number] Referring Physician General Surgery 12/17/18 [place] [address] [facility] [address] [place] [id number] Medical Oncologist/Group Marketing Vp Medical Oncology 12/17/18 [place] [address] [facility] [address] [place] [address] Consulting Physician Gastroenterology 01/07/20 documented as of this encounter
--- OUTSIDE RECORDS SUMMARY | 2024-11-16 12:57 | XMS_ITS | Encounter Summary ---
Author Organization [facility] Medical [facility] Address [address] [facility] [address] [place] [address] Care Team Providers Care Carpenter Maintenance Name Role Phone Francisco Long MD Primary Care Provider [phone] Neil Ag MD PhD Unavailable [phone] Ita estarda MD Unavailable Caron Mohan MD Unavailable Pebbles Felton MD Unavailable [phone] Encounter Details Date Type Department Care Team (Late st Contact Info) Description 01/31/2021 Telephone [facility] [place] [facility] [address] [facility] [address] [place] [address] Francisco Long MD [address] [place] [address] [address] [place] [address] Social History Tobacco Use Types [...] on file 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 PT states she is scheduled for 03/15/21 to have eye exam. Pt instructed to have eye doctor send a copy of her exam to our office. RINGER documented in this encounter Plan of Treatment Not on file documented as of this encounter Visit Diagnoses Not on filedocumented in this encounter Care Teams Carpenter Maintenance Relationship Specialty Start Date End Date Francisco Long MD PCP - General 02/23/17 05/15/22 Neil Ag MD PhD 6 [place] [address] Radiation Oncologist Radiation Oncology 12/17/18 [place] [address] [facility] [address] [facility] [address] Referring Physician General Surgery 12/17/18 [place] [address] [facility] [address] [facility] [place], [place] [id number] Medical Oncologist/Wool Washing Machine Operator Medical Oncology 12/17/18 [place] [address] [address] [facility] [address] [place] [address] Consulting Physician Gastroenterology 01/07/20 documented as of this encounter
--- OUTSIDE RECORDS SUMMARY | 2024-11-16 12:59 | XMS_ITS | Encounter Summary ---
Author Organization [facility] Medical Group Address [address] [facility] [address] [place] [address] Care Team Providers Care Gasoline Pump Mechanic Name Role Phone Francisco Long MD Primary Care Provider [phone] Neil Ag MD PhD Unavailable [phone] Ita estrada MD Unavailable Caron Mohan MD Unavailable Pebbles Felton MD Unavailable [phone] Encounter Details Date Type Department Care Team (Late st Contact Info) Description 01/24/2021 Orders Only [place] [facility] [address] [facility] [address] [place] [address] Francisco Long MD [address] [place] [address] [address] [place] [address] Social History Tobacco Use Types [...] on file 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 Gender Identity Not on file Sexual Orientation Not on file documented as of this encounter Plan of Treatment Not on file documented as of this encounter Visit Diagnoses Not on filedocumented in this encounter Care Teams Gasoline Pump Mechanic Relationship Specialty Start Date End Date Francisco Long MD PCP - General 02/23/17 05/15/22 Neil Ag MD PhD [address] [place] [address] Radiation Oncologist Radiation Oncology 12/17/18 [place] [address] [facility] [address] [place], [place] [id number] Referring Physician General Surgery 12/17/18 [place] [address] [facility] [address] [place], [place] [id number] Medical Oncologist/Nurse First Assist Medical Oncology 12/17/18 [place] [address] [facility] [address] [place], [place] [id number] Consulting Physician Gastroenterology 01/07/20 documented as of this encounter
--- OUTSIDE RECORDS SUMMARY | 2024-11-16 12:59 | XMS_ITS | Encounter Summary ---
Author Organization [facility] Address [address] [facility] [address] [place] [address] Care Team Providers Care Engineering Professionals Name Role Phone Francisco Long MD Primary Care Provider [phone] Neil Ag MD PhD Unavailable [phone] Ita estrada MD Unavailable Caron Mohan MD Unavailable Pebbles Felton MD Unavailable [phone] Encounter Details Date Type Department Care Team (Late st Contact Info) Description 01/07/2021 Orders Only [facility] Gastroenterology at [address] [place] [address] Pebbles Felton MD [address] [place] [address] [address] [place] [address] Iron deficiency anemia, unspecified iron deficiency anemia type (Primary Dx) Social History Tobacco Use Types [...] points, staff should administer the PHQ-9) 0 01/03/2021 Hunger Vital Sign Answer Date Recorded Worried [...] on file 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 12/29/2020 12/29/2020 01/12/2021 3:0 6 AM LEARNING DESIGN SPECIALIST documented as of this encounter Care Teams Engineering Professionals Relationship Specialty Start Date End Date Francisco Long MD PCP - General 02/23/17 05/15/22 Neil Ag MD PhD 6 [place] [address] Radiation Oncologist Radiation Oncology 12/17/18 [place] [address] [facility] [address] [facility] [place] [address] Referring Physician General Surgery 12/17/18 [place] [address] [facility] [address] [employer] [place] [id number] Medical Oncologist/Principal Engineer Medical Oncology 12/17/18 [place] [address] [facility] [address] [place] [address] Consulting Physician Gastroenterology 01/07/20 documented as of this encounter
--- OUTSIDE RECORDS SUMMARY | 2024-11-16 12:59 | XMS_ITS | Encounter Summary ---
Author Organization [facility] Address [address] [facility] [address] [place] [address] Care Team Providers Care Mechanical Assembly Technician Name Role Phone Francisco Long MD Primary Care Provider [phone] Neil Ag MD PhD Unavailable [phone] Ita estrada MD Unavailable Caron Mohan MD Unavailable Pebbles Felton MD Unavailable [phone] Encounter Details Date Type Department Care Team (Late st Contact Info) Description 01/06/2021 Orders Only [facility] [address] [facility] [address] [place] [address] Francisco Long MD [address] [place] [address] [address] [place] [address] Social History Tobacco Use Types [...] on file 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 12/29/2020 12/29/2020 01/12/2021 3:0 6 AM SCIENTIST IMMUNOLOGY documented as of this encounter Care Teams Mechanical Assembly Technician Relationship Specialty Start Date End Date Francisco Long MD PCP - General 02/23/17 05/15/22 Neil Ag MD PhD 6 [place] [address] Radiation Oncologist Radiation Oncology 12/17/18 [place] [address] [place], [place] [id number] Referring Physician General Surgery 12/17/18 [place] [address] [place], [place] [address] Medical Oncologist/Racing Car Driver Medical Oncology 12/17/18 [place] [address] [place] [address] Consulting Physician Gastroenterology 01/07/20 documented as of this encounter
--- OUTSIDE RECORDS SUMMARY | 2024-11-16 12:59 | XMS_ITS | Encounter Summary ---
Author Organization [facility] Healthcare Address [address] [place] [address] Care Team Providers Care Compliance Lead Name Role Phone Francisco Long MD Primary Care Provider Neil Ag MD PhD Unavailable [phone] Ita Vazquez MD Unavailable Caron Mohan MD Unavailable Pebbles Felton MD Unavailable [phone] Reason for Visit * Reason Comments OP Infusion Here to initiate IV Iron Sucrose, Oumar, #1 of 3. * Episode Based Medications (Routine) - Closed Specialty Diagnoses / Procedures Referred By Contac t Referred To Contact Diagnoses Iron deficiency anemia due to chronic blood loss Francisco Long MD [address] [place] [address] Phone: tel: fax: [facility] [address] [place] [address] Phone: tel: Referral ID Status Reason Start Date Expiration Date Visits Re quested Visits Authorized [id number] Closed 01/04/2021 02/03/2022 1 1 Encounter Details Date Type Department Care Team (Late st Contact Info) Description 01/21/2021 10:30 AM WELDER Infusion [facility] [place] [address] [facility] [address] [place] [address] Francisco Long MD [address] [place] [address] [address] Iron deficiency anemia due to chronic blood [...] on file 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 Gender Identity Not on file Sexual Orientation Not on file documented as of this encounter Last Filed Vital Signs Vital Sign Reading Time Taken Comments Blood Pressure 138/61 01/21/2021 9:42 AM WELDER Pulse 75 01/21/2021 9:42 AM WELDER Temperature 36.2 ??C (97.2 ??F) 01/21/2021 9:42 AM CS T Respiratory Rate 20 01/21/2021 9:42 AM WELDER Oxygen Saturation 100% 01/21/2021 9:42 AM WELDER Inhaled Oxygen Concentration - - Weight - - Height - - Body Mass Index - - documented in this encounter Discharge Disposition Disposition Code Departure Means Destination Discharge to home or self care documented in this encounter Nursing Notes * Rivka Galan, TAO - 01/21/2021 10:30 AM CST Patient here in the ambulatory mode for her first in a series of three weekly IV infusions of Iron Sucrose (Venofer). Assessment completed. She was just in to see Dr. Long this morning, prior to herappointment here. ER * Rivka Galan RN - 01/21/2021 10:30 AM CST Patient here in the ambulatory mode for her first in a series of IV Iron Sucrose (Venofer) infusions as per Dr. Long's orders. Assessment completed. IV Iron Sucrose given per pump and as per MAR, via a #22 g intima in her right hand. A saline lock was created. Patient tolerated her infusion without acute, ill effects. IV site was discontinued and the intima removed. Light pressure was held to site with a cotton ball, that was secured with Coband. Patient given a copy of her AVS, and left in stable condition, in the ambulatory mode. She has her follow up appointments. ER ER documented in this encounter Plan of Treatment [...] mL/hr, Administer over 90 Minutes, Once, On Sun01/21/21 at 1015, For 1 doseIndications:Iron deficiency anemia due to chronic blood loss New Bag 01/21/2021 10:03 AM WELDER 300 mg 176.7 mL/hr Right Hand documented in this encounter Orders Medications Ordered That Álvaro ht Not Have Been Administered Count Last Ordered Date First Ordered Date iron sucrose (VENOFER) 300 m g in sodium chloride 0.9% 250 mL IVPB 1 01/21/2021 sodium chloride 0.9% flush 10 mL 1 01/21/20 documented in this encounter Care Teams Compliance Lead Relationship Specialty Start Date End Date Francisco Long MD PCP - General 02/23/17 05/15/22 Neil Ag MD PhD 6 [place] [address] Radiation Oncologist Radiation Oncology 12/17/18 [place] [address] [address] [facility] [address] [place], [place] [address] Referring Physician General Surgery 12/17/18 [place] [address] [address] [facility] [address] [place] [address] Medical Oncologist/Travel Clerk Medical Oncology 12/17/18 [place] [address] [facility] [address] [place] [address] Consulting Physician Gastroenterology 01/07/20 documented as of this encounter
--- OUTSIDE RECORDS SUMMARY | 2024-11-16 12:59 | XMS_ITS | Encounter Summary ---
Author Organization [facility] Healthcare Address [address] [place] [address] Care Team Providers Care Wire Bound Box Machine Operator Name Role Phone Francisco Long MD Primary Care Provider Neil Ag MD PhD Unavailable Ita Vazquez MD Unavailable Caron Mohan MD Unavailable Pebbles Felton MD Unavailable [phone] Encounter Details Date Type Department Care Team (Latest Contact Info) Description 01/19/2021 6:30 AM PAPERBOARD BOX MAKER - 01/19/2021 11:59 PM [facility] Hospital Encounter [facility] Center [address] [place] [address] Pebbles Felton MD [address] [place] [address] Discharge Disposition: Discharge to home or self [...] on file 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 PAPERBOARD BOX MAKER Gender Identity Not on file Sexual Orientation Not on file documented as of this encounter Medications at Time of Discharge letrozole (FEMARA) 2.5 mg tablet Take 1 tablet (2.5 mg total) by mouth daily methotrexate 2.5 mg tabletIndication s:Rheumatoid Arthritis Take 1 tablet (2.5 mg total) by mouth every 7 days Takes 6 tablets every Sunday apixaban (ELIQUIS) 5 mg tabletIndication s:deep venous thrombosis Take 1 tablet (5 mg total) by mouth 2 (two) times a day 180 tablet 3 12/09/2019 1 carvediloL (COREG) 6.25 mg tablet TAKE ONE TABLET BY MOUTH TWICE DAILY WITH MEALS 180 tablet 3 12/23/2020 2 cholecalciferol (VITAMIN D-3) 400 unit capsule 1,000 Units 02 4 famotidine (PEPCID) 40 mg tablet Take 1 tablet (40 mg total) by mouth daily 90 tablet 3 12/30/2020 4 ferrous sulfate 325 mg (65 mg of elemental iron) tabletIndication s:Iron Deficiency Anemia Take 1 tablet (325 mg total) by mouth daily with breakfast 30 tablet 11 07/01/2020 1 losartan (COZAAR) 100 mg tablet TAKE 1 TABLET BY MOUTH EVERY DAY 90 tablet 3 09/24/[address] (PROTONIX) 40 mg EC tablet Take 1 tablet (40 mg total) by mouth daily 30 tablet 11 12/30/2020 2 rosuvastatin (CRESTOR) 5 mg tablet Take 1 tablet (5 mg total) by mouth daily 30 tablet 11 07/01/2020 1 documented as of this encounter Discharge Disposition Disposition Code Departure Means Destination Discharge to home or self care documented in this encounter Plan of Treatment Not on file documented as of this encounter Visit Diagnoses Not on filedocumented in this encounter Care Teams Wire Bound Box Machine Operator Relationship Specialty Start Date End Date Francisco Long MD PCP - General 02/23/17 05/15/22 Neil Ag MD PhD 6 [place] [address] Radiation Oncologist Radiation Oncology 12/17/18 [place] [address] [id number] Referring Physician General Surgery 12/17/18 [place] [address] [address] Medical Oncologist/At Risk Specialist Medical Oncology 12/17/18 [place] [address] [address] Consulting Physician Gastroenterology 01/07/20 documented as of this encounter
--- OUTSIDE RECORDS SUMMARY | 2024-11-16 12:59 | XMS_ITS | Encounter Summary ---
Author Organization [facility] Address [address] [facility] [address] [place] [address] Care Team Providers Care Drafting Technician Name Role Phone Francisco Long MD Primary Care Provider [phone] Neil Ag MD PhD Unavailable [phone] Ita estrada MD Unavailable Caron Mohan MD Unavailable Pebbles Felton MD Unavailable [phone] Encounter Details Date Type Department Care Team (Late st Contact Info) Description 01/05/2021 Telephone [facility] 2 [facility] [address] [place] [address] Francisco Long MD [address] [place] [address] [address] [place] [address] Social History Tobacco Use Types [...] on file 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 Gender Identity Not on file Sexual Orientation Not on file documented as of this encounter Miscellaneous Notes * Telephone Encounter - Francisco Long MD - 01/06/2021 8:09 AM CST I talked to the patient on the telephone regarding the results of her recent EGD she is going to talk to her surgeon that she seen next week at [facility] regarding his specialist does the hiatal hernia surgery she like to have it done at [facility] if possible she wanted to push off the capsule endoscopy that GI ordered yesterday after EGD but total get done as soon as possible will make sure there is no other bleeding sites before we consider putting her back on the Eliquis I did explain to her that her hiatal hernia could sometimes be get large enough to compromise her lung capacity possibly could cause some atelectasis shortness of breath and sudden respiratory collapse She does understand we 1 of put her back on the Eliquis of possible she had a deep venous thrombosis following orthopedic surgery and subsequent pulmonary emboli much later today in follow-up with patt dooley she has feels come in at 10:00 a.m. to see me but will have her come in at 9:00 a.m. since she is getting iron infusion at 10:30 a.m. that day D WASTE FACILITY OPERATOR * Telephone Encounter - Latoya Cotton MA - 01/05/2021 4:23 PM SOLID WASTE FACILITY OPERATOR jr D WASTE FACILITY OPERATOR * Telephone Encounter - Yuli Lopez - 01/05/2021 4:20 PM CST Pt called for results of her egd she had done today by Dr Felton. She would like to know if Dr Long has seen the results and would he call her if possible. Please advise. D WASTE FACILITY OPERATOR documented in this encounter Plan of Treatment Not on file documented as of this encounter Visit Diagnoses Not on filedocumented in this encounter Additional Health Concerns Infection Onset Date Last Indicated Resolved Time Respiratory Infection (TITI), contact + droplet Comment:Automatically added due to negative COVID-19 result. 12/29/2020 12/29/2020 01/12/2021 3:0 6 AM SOLID WASTE FACILITY OPERATOR documented as of this encounter Care Teams Drafting Technician Relationship Specialty Start Date End Date Francisco Long MD PCP - General 02/23/17 05/15/22 Neil Ag MD PhD [address] [place] [id number] Radiation Oncologist Radiation Oncology 12/17/18 [place] [address] [facility] 120 [facility] [place] [address] Referring Physician General Surgery 12/17/18 [place] [address] [facility] [address] [place] [address] Medical Oncologist/Claims Adjuster Medical Oncology 12/17/18 [place] [address] [facility] 120 [place] [address] Consulting Physician Gastroenterology 01/07/20 documented as of this encounter
--- OUTSIDE RECORDS SUMMARY | 2024-11-16 12:59 | XMS_ITS | Encounter Summary ---
Author Organization [facility] Address [address] [facility] [address] [place] [address] Care Team Providers Care Acid Treater Name Role Phone Francisco Long MD Primary Care Provider [phone] Neil Ag MD PhD Unavailable [phone] Ita estrada MD Unavailable Caron Mohan MD Unavailable Pebbles Felton MD Unavailable [phone] Encounter Details Date Type Department Care Team (Late st Contact Info) Description 01/18/2021 Telephone [facility] [address] [facility] [address] [place] [address] Francisco Long MD [address] [place] [address] [address] [place] [address] Social History Tobacco Use Types [...] on file 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 Gender Identity Not on file Sexual Orientation Not on file documented as of this encounter Miscellaneous Notes * Result Encounter Note - Francisco Long MD - 02/01/2021 6:37 AM CST Okay to leave a message hemoglobin up to 10.3 good news ECTIVE 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 * Telephone Encounter - Jami Pettit MA - 01/18/2021 12:04 PM PROTECTIVE 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 Patient aware, lab order placed for [facility] ECTIVE 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 * Telephone Encounter - Jami Pettit MA - 01/18/2021 11:57 AM PROTECTIVE 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 ----- Message from Francisco Long MD sent at 01/18/2021 7:41 AM PROTECTIVE 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 ----- Okay to leave a message hemoglobin up to 9.5 repeat 2 weeks diagnosis anemia ECTIVE 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 documented in this encounter Plan of Treatment Not on file documented as of this encounter Procedures Procedure Name Priority Date/Time Associated Diagnosis Comments HEMOGLOBIN Routine 01/31/2021 8:02 AM PROTECTIVE 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 Iron deficiency anemia due to chronic blood loss documented in this encounter Results * (ABNORMAL) Hemoglobin (01/31/2021 8:02 AM PROTECTIVE 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) Hgb 10.3(L) 11.7 - 15.5 g/dL [facility] Blood specimen (specimen) 01/31/2021 8:02 AM PROTECTIVE 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 01/31/2021 8:04 AM PROTECTIVE 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 us Francisco Long MD LAB BLOOD ORDERABLES Final Res ult [facility] [id number] [address] [id number] documented in this encounter Visit Diagnoses Diagnosis Iron deficiency anemia due to chronic blood loss- Primary Iron deficiency anemia secondary to blood loss (chronic) documented in this encounter Care Teams Acid Treater Relationship Specialty Start Date End Date Francisco Long MD PCP - General 02/23/17 05/15/22 Neil Ag MD PhD 6 [place] [address] Radiation Oncologist Radiation Oncology 12/17/18 [place] [address] [facility] 120 [place], [place] [address] Referring Physician General Surgery 12/17/18 [place] [address] [facility] [address] [place], [place] [address] Medical Oncologist/Type Copy Examiner Medical Oncology 12/17/18 [place] [address] [facility] [address] [place] [address] Consulting Physician Gastroenterology 01/07/20 documented as of this encounter
--- OUTSIDE RECORDS SUMMARY | 2024-11-16 12:59 | XMS_ITS | Encounter Summary ---
Author Organization [facility] Address [address] [facility] [address] [place] [address] Care Team Providers Care Header Up Name Role Phone Francisco Long MD Primary Care Provider [phone] Neil Ag MD PhD Unavailable [phone] Ita estrada MD Unavailable Caron Mohan MD Unavailable Pebbles Felton MD Unavailable [phone] Encounter Details Date Type Department Care Team (Late st Contact Info) Description 01/21/2021 Telephone [place] [address] [facility] [address] [place] [address] Francisco Long MD [address] [place] [address] [address] [place] [address] Social History Tobacco Use Types [...] on file 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 Long's in basket for review WICH MACHINE OPERATOR * Telephone Encounter - Jami Pettit MA - 02/03/2021 9:59 AM SANDWICH MACHINE OPERATOR Spoke with Debi at Dr Felton's office , she will obtain report on the capsule procedure and faxit to our office WICH MACHINE OPERATOR * Telephone Encounter - Francisco Long MD - 02/02/2021 4:43 PM CST Please contact GI office tomorrow and see if they have report regarding her capsule endoscopy done a few weeks ago WICH MACHINE OPERATOR * Telephone Encounter - Latoya Cotton MA - 01/25/2021 12:46 PM SANDWICH MACHINE OPERATOR WICH MACHINE OPERATOR * Telephone Encounter - Katie Apple - 01/25/2021 12:04 PM CST Pt following up with this message. States the methotrexate was stopped because it could've been causing a gi bleed. She would like to know if she can restart it? She would like to speak to JR about this if possible. Also, on 01/19 she took a gi capsule but she hasn't received any results. Please call [phone] WICH MACHINE OPERATOR * Telephone Encounter - Anita White MA - 01/21/2021 12:45 PM CST JR WICH MACHINE OPERATOR * Telephone Encounter - Yuli Lopez - 01/21/2021 12:17 PM CST Pt called to ask Dr Long to call Dr Chun at [phone]. Regarding the pt's RA. Methotrexate. Dr Chun thinks the pt should be taking the Methotrexate and wants to know why Dr Long wants her to stop it. Please advise. WICH MACHINE OPERATOR documented in this encounter Plan of Treatment Not on file documented as of this encounter Visit Diagnoses Not on filedocumented in this encounter Care Teams Header Up Relationship Specialty Start Date End Date Francisco Long MD PCP - General 02/23/17 05/15/22 Neil Ag MD PhD 6 [place] [address] Radiation Oncologist Radiation Oncology 12/17/18 [place] [address] [address] [facility] [place] [address] Referring Physician General Surgery 12/17/18 [place] [address] [address] [facility], [place] [id number] Medical Oncologist/V Belt Finisher Medical Oncology 12/17/18 [place] [address] [facility] [address] [place] [address] Consulting Physician Gastroenterology 01/07/20 documented as of this encounter
--- OUTSIDE RECORDS SUMMARY | 2024-11-16 12:59 | XMS_ITS | Encounter Summary ---
Author Organization [facility] Medical Group Address [address] [place] [address] Care Team Providers Care Tower Operator Name Role Phone Francisco Long MD Primary Care Provider [phone] Neil Ag MD PhD Unavailable [phone] Ita Vazquez MD Unavailable Caron Mohan MD Unavailable Pebbles Felton MD Unavailable [phone] Reason for Visit * Reason Comments GI Bleeding f/u Encounter Details Date Type Department Care Team (Late st Contact Info) Description 01/21/2021 8:45 AM UPHOLSTERY REPAIRER Office Visit [facility] [address] [place] [address] Francisco Long MD [address] [place] [address] [address] [place] [address] Acute upper GI bleed (Primary Dx); BMI 28.0-28.9,adult; Essential hypertension; Hiatal hernia Social History Tobacco [...] on file 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 UPHOLSTERY REPAIRER Gender Identity Not on file Sexual Orientation Not on file documented as of this encounter Last Filed Vital Signs Vital Sign Reading Time Taken Comments Blood Pressure 122/74 01/21/2021 8:46 AM UPHOLSTERY REPAIRER Pulse 74 01/21/2021 8:46 AM UPHOLSTERY REPAIRER Temperature - - Respiratory Rate 16 01/21/2021 8:46 AM UPHOLSTERY REPAIRER Oxygen Saturation - - Inhaled Oxygen Concentration - - Weight 83.9 kg (185 lb) 01/21/2021 8:46 AM UPHOLSTERY REPAIRER Height 170.2 cm (5' 7 ) 01/21/2021 8:46 AM UPHOLSTERY REPAIRER Body Mass Index 28.98 01/21/2021 8:46 AM UPHOLSTERY REPAIRER documented in this encounter Progress Notes * Francisco Long MD - 01/21/2021 8:45 AM CST Subjective/Objective Patient ID: Jolene Cedillo is a 75 y.o. female. 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 she states about for 5 years ago she is on anticoagulation for few months then taken off of it had no problems until November 2019 when she developed shortness of breath in late October went to the urgent care then something he Daquan me in the office the 1st week in November at which time CT scan revealed pulmonary embolus she had no recent travel no surgery recently at that time she is placed on Eliquis therapy and did well for couple months until she started having some GI bleed medication was discontinued then resumed at a later date and most recently found to have more GI bleeding with anemia EGD revealed hot large hiatal hernia capsule endoscopy camera is pending at present she is taking methotrexate for rheumatoid arthritis and is on PPI therapy as well and she understands that this combination may raise her methotrexate levels and methotrexate by itself could cause some GI bleeding She is due for methotrexate tomorrow but I recommend she hold this until she discusses all other options with her 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's basketball coach since the patient needs to be on PPI therapy for her GI bleeding and methotrexate may be exacerbating this may be the cause of it she does not take any aspirin or NSAIDs Patient is monitoring her stools she has no black stools Review of Systems Vitals: 01/21/21 0846 BP: 122/74 BP Location: Right arm Patient Position: Sitting Pulse: 74 Resp: 16 Weight: 83.9 kg (185 lb) Height: 170.2 cm (5' 7 ) Physical Exam She is pleasant no distress lungs clear cardiovascular regular abdomen soft nontender extremities no edema Assessment/Plan Diagnoses and all orders for this visit: Acute upper GI bleed (Primary) Right now she seems to be stable hemoglobin is up to 9.5 she has no melena no hematochezia no abdominal pain Her bleed maybe due to the hiatal hernia along with the methotrexate along with Protonix which could raise methotrexate levels which could make things worse and she is agreeable hold methotrexate fornot now talked Dermatology regarding possible other therapy she will call next week for capsule endoscopy report BMI 28.0-28.9,adult She has little overweight she she continues to work on diet but she can Essential hypertension Good control with current regimen will continue monitor Hiatal hernia Anti reflux measures consider surgical repair apparently hiatal hernia could be associated with lack of iron absorption and GI bleeding according to GI notes Will see back in a month continue monitor hemoglobin levels Side effects, risks, interactions reviewed with patient. Indications for testing discussed. Any further problems to contact us. She was told what to look out for and verbalized understanding. The patient was given the opportunity to have all questions answered today and was in agreement with the plan of care. LSTERY REPAIRER documented in this encounter Plan of Treatment Not on file documented as of this encounter Visit Diagnoses Diagnosis Acute upper GI bleed- Primary Unspecified, hemorrhage of gastrointestinal tract BMI 28.0-28.9,adult Essential hypertension Unspecified essential hypertension Hiatal hernia Diaphragmatic hernia without mention of obstruction or gangrene documented in this encounter Discontinued Medications Medication Sig Discontinue Reason Start Date End Da te ferrous sulfate 325 mg (65 mg of elemental iron) tabletIndications:Iron Deficiency Anemia Take 1 tablet (325 mg total) by mouth daily with breakfast 07/01/2020 01/21/2021 documented as of this encounter Care Teams Tower Operator Relationship Specialty Start Date End Date Francisco Long MD PCP - General 02/23/17 05/15/22 Neil Ag MD PhD [address] [place] [address] Radiation Oncologist Radiation Oncology 12/17/18 [place] [address] [facility] [address] [place] [address] Referring Physician General Surgery 12/17/18 [place] [address] [facility] [address] [place] [address] Medical Oncologist/Practice Billing Associate Medical Oncology 12/17/18 [place] [address] [facility] [facility] [address] [place] [address] Consulting Physician Gastroenterology 01/07/20 documented as of this encounter
--- OUTSIDE RECORDS SUMMARY | 2024-11-16 12:59 | XMS_ITS | Encounter Summary ---
Author Organization [facility] Medical Group Address [address] [facility] [address] [place] [address] Care Team Providers Care Head Buyer Tobacco Name Role Phone Francisco Long MD Primary Care Provider [phone] Neil Ag MD PhD Unavailable [phone] Ita estrada MD Unavailable Caron Mohan MD Unavailable [phone] Pebbles Felton MD Unavailable [phone] Encounter Details Date Type Department Care Team (Late st Contact Info) Description 01/11/2021 Telephone [facility] [address] [facility] [address] [place] [address] Francisco Long MD [address] [place] [address] [address] [place] [address] Social History Tobacco Use Types [...] on file 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 Gender Identity Not on file Sexual Orientation Not on file documented as of this encounter Miscellaneous Notes * Result Encounter Note - Francisco Long MD - 04/07/2021 6:02 AM CDT Hemoglobin 14.4 okay to leave a message great news * Telephone Encounter - Jami Pettit MA - 01/11/2021 8:38 AM HIGH SCHOOL PROFESSIONAL patient aware, order placed for [facility] SCHOOL PROFESSIONAL * Telephone Encounter - Jami Pettit MA - 01/11/2021 8:37 AM HIGH SCHOOL PROFESSIONAL ----- Message from Francisco Long MD sent at 01/11/2021 7:14 AM HIGH SCHOOL PROFESSIONAL ----- Okay message hemoglobin 8.8 repeat hemoglobin January 17 and January 31 diagnosis anemia SCHOOL PROFESSIONAL documented in this encounter Plan of Treatment Not on file documented as of this encounter Procedures Procedure Name Priority Date/Time Associated Diagnosis Comments HEMOGLOBIN Routine 04/06/2021 8:28 AM CDT Iron deficiency anemia due to chronic blood loss documented in this encounter Results * Hemoglobin (04/06/2021 8:28 AM CDT) Hgb 14.4 11.7 - 15.5 g/dL [facility] Blood specimen (specimen) 04/06/2021 8:28 AM CDT 04/06/2021 8:29 AM CDT us Francisco Long MD LAB BLOOD ORDERABLES Final Res ult LEXI [facility] [address] [id number] documented in this encounter Visit Diagnoses Diagnosis Iron deficiency anemia due to chronic blood loss- Primary Iron deficiency anemia secondary to blood loss (chronic) documented in this encounter Additional Health Concerns Infection Onset Date Last Indicated Resolved Time Respiratory Infection (TITI), contact + droplet Comment:Automatically added due to negative COVID-19 result. 12/29/2020 12/29/2020 01/12/2021 3:0 6 AM HIGH SCHOOL PROFESSIONAL documented as of this encounter Care Teams Head Buyer Tobacco Relationship Specialty Start Date End Date Francisco Long MD PCP - General 02/23/17 05/15/22 Neil Ag MD PhD [address] [place] [address] Radiation Oncologist Radiation Oncology 12/17/18 [place] [address] [facility] [address] [employer] [address] Referring Physician General Surgery 12/17/18 [place] [address] [facility] [address] [place] [address] Medical Oncologist/Meat Department Manager Medical Oncology 12/17/18 [place] [address] [facility] [address] [employer] [address] Consulting Physician Gastroenterology 01/07/20 documented as of this encounter
--- OUTSIDE RECORDS SUMMARY | 2024-11-16 13:00 | XMS_ITS | Encounter Summary ---
Author Organization [facility] Healthcare Address [address] [place] [address] Care Team Providers Care Revenue Cycle Analyst Name Role Phone Francisco Long MD Primary Care Provider [phone] Neil Ag MD PhD Unavailable [phone] Ita Vazquez MD Unavailable Caron Mohan MD Unavailable Pebbles Felton MD Unavailable [phone] Encounter Details Date Type Department Care Team (Late st Contact Info) Description 01/03/2021 2:10 PM SUPERVISOR PRESSING DEPARTMENT Lab [address] [address] Pebbles Felton MD [address] [place] [address] Pre-procedure lab exam Discharge Disposition: Discharge to home or self [...] file 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 SUPERVISOR PRESSING DEPARTMENT Gender Identity Not on file Sexual Orientation Not on file documented as of this encounter Discharge Disposition Disposition Code Departure Means Destination Discharge to home or self care documented in this encounter Plan of Treatment Not on file documented as of this encounter Procedures Procedure Name Priority Date/Time Associated Diagnosis Comments COVID-19 CORONAVIRUS RNA Routine 01/03/2021 2:21 PM SUPERVISOR PRESSING DEPARTMENT Pre-procedure lab exam documented in this encounter Results * COVID-19 Coronavirus RNA Nasopharyngeal (01/03/2021 2:21 PM SUPERVISOR PRESSING DEPARTMENT) COVID-19 RNA Not Detected [facility] ([place]) Comment: Testing performed as a component of ??a specimen pool. ??Negative results should be treated as presumptive and, if inconsistent with clinical signs and symptoms or necessary for patient management, pooled samples should be tested individually. Negative results do not preclude SARS-CoV-2 infection and must not be used as the sole basis for patient management decisions. Negative results must be considered in the context of a patient? s recent exposures, history, presence of clinical signs and symptoms consistent with COVID-19. Interpretive Data Synonyms for this test include: PCR and NAAT . ??Testing performed by the [facility] Molecular Infectious Disease Laboratory. The 2019-Novel Coronavirus Assay (COVID-19)Real Time RT-PCR assay is for in vitro diagnostic use under FDA emergency use authorization only. A negative RT-PCR result does not preclude infection with COVID-19 and should not be used as the sole basis for treatment or other patient management decisions. ??Additional sample types have been validated according to CLIA regulations. ?? Current Interpretive Data was last revised on December 30, 2020. First COVID-19 test? No [facility] ([place]) Comment:Testing performed by : [facility], [address] [facility], [address] Employeed in healthcare? No ME[facility]AN THOMAS ([place]) Comment:Testing performed by : [facility], [address] [facility], [address] status? No CE MONIE THOMAS ([place]) Comment:Testing performed by : [facility], [address] [place] [address], [address] Group care resident? No MEHRAN THOMAS ([place]) Comment:Testing performed by : [facility], [address] [place] [address], [address] Hospitalized? No MEHRAN THOMAS ([place]) Comment:Testing performed by : [facility], [address] [facility], [address] Is patient in ICU? No ME[facility]AN THOMAS ([place]) Comment:Testing performed by : [facility], [address] [place] [address], [address] Symptomatic as defined by CDC? No MEHRAN THOMAS ([place]) Comment:Testing performed by : [facility], [address] [place] [address], [address] Nasopharyngeal 01/03/2021 2: 21 PM SUPERVISOR PRESSING DEPARTMENT 01/04/2021 2:55 AM SUPERVISOR PRESSING DEPARTMENT Narrative [facility] THOMAS ([place]) - 01/04/2021 8:24 PM SUPERVISOR PRESSING DEPARTMENT What is the reason for testing?->Screening prior to scheduled procedure or surgery Pebbles Felton MD LAB MICROBIOLOGY - GENERAL ORDERABLES Final Result MEHRAN THOMAS ([place]) 1 [facility] Department [place] [address] documented in this encounter Visit Diagnoses Diagnosis Pre-procedure lab exam Pre-procedural laboratory examination documented in this encounter Additional Health Concerns Infection Onset Date Last Indicated Resolved Time Respiratory Infection (TITI), contact + droplet Comment:Automatically added due to negative COVID-19 result. 12/29/2020 12/29/2020 01/12/2021 3:0 6 AM SUPERVISOR PRESSING DEPARTMENT documented as of this encounter Care Teams Revenue Cycle Analyst Relationship Specialty Start Date End Date Francisco Long MD PCP - General 02/23/17 05/15/22 Neil Ag MD PhD [address] [place] [address] Radiation Oncologist Radiation Oncology 12/17/18 [place] [address] [address] [facility] [address] [place] [id number] Referring Physician General Surgery 12/17/18 [place] [address] [address] [facility] [address] [place] [id number] Medical Oncologist/Floor Nurse Medical Oncology 12/17/18 [place] [address] [address] [facility] [address] [place] [id number] Consulting Physician Gastroenterology 01/07/20 documented as of this encounter
--- OUTSIDE RECORDS SUMMARY | 2024-11-16 13:00 | XMS_ITS | Encounter Summary ---
Author Organization [facility] Medical Group Address [address] [facility] [facility] [address] [place] [address] Care Team Providers Care Pbx Supervisor Name Role Phone Francisco Long MD Primary Care Provider [phone] Neil Ag MD PhD Unavailable [phone] Ita estrada MD Unavailable Caron Mohan MD Unavailable Pebbles Felton MD Unavailable [phone] Encounter Details Date Type Department Care Team (Late st Contact Info) Description 01/03/2021 Telephone [facility] [address] [facility] [address] [place] [address] Francisco Long MD [address] [place] [address] [address] [place] [address] Social History Tobacco Use Types [...] on file 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 MUSIC INTERNSHIP Gender Identity Not on file Sexual Orientation Not on file documented as of this encounter Miscellaneous Notes * Result Encounter Note - Francisco Long MD - 01/18/2021 7:41 AM CST Okay to leave a message hemoglobin up to 9.5 repeat 2 weeks diagnosis anemia C INTERNSHIP * Result Encounter Note - Francisco Long MD - 01/11/2021 7:14 AM CST Okay message hemoglobin 8.8 repeat hemoglobin January 17 and January 31 diagnosis anemia C INTERNSHIP * Telephone Encounter - Jami Pettit MA - 01/03/2021 5:08 PM MUSIC INTERNSHIP Patient aware lab ordered, sent to referrals C INTERNSHIP * Telephone Encounter - Jami Pettit MA - 01/03/2021 4:51 PM MUSIC INTERNSHIP ----- Message from Francisco Long MD sent at 01/03/2021 12:50 PM MUSIC INTERNSHIP ----- Okay to leave a message with patient or her hemoglobin is 8.5 stable repeat hemoglobin and hematocrit January 10 and diagnosis anemia GI bleed set up IV iron 300 mg of venofer weekly x3 doses diagnosis GI bleed iron deficiency anemia C INTERNSHIP documented in this encounter Plan of Treatment Not on file documented as of this encounter Procedures Procedure Name Priority Date/Time Associated Diagnosis Comments HEMOGLOBIN Routine 01/17/2021 10:33 AM MUSIC INTERNSHIP Acute gastrointestinal hemorrhage Iron deficiency anemia due to chronic blood loss HEMATOCRIT Routine 01/17/2021 10:33 AM MUSIC INTERNSHIP Acute gastrointestinal hemorrhage Iron deficiency anemia due to chronic blood loss HEMOGLOBIN Routine 01/10/2021 8:28 AM MUSIC INTERNSHIP Acute gastrointestinal hemorrhage Iron deficiency anemia due to chronic blood loss HEMATOCRIT Routine 01/10/2021 8:28 AM MUSIC INTERNSHIP Acute gastrointestinal hemorrhage Iron deficiency anemia due to chronic blood loss documented in this encounter Results * (ABNORMAL) Hematocrit (01/17/2021 10:33 AM MUSIC INTERNSHIP) Hct 32.3(L) 35.0 - 45.0 % [facility] Blood specimen (specimen) 01/17/2021 10:33 AM MUSIC INTERNSHIP 01/17/2021 10:34 AM MUSIC INTERNSHIP Francisco Long MD LAB BLOOD ORDERABLES Final Res ult [facility] [address] [place] [address] * (ABNORMAL) Hemoglobin (01/17/2021 10:33 AM MUSIC INTERNSHIP) Hgb 9.5(L) 11.7 - 15.5 g/dL [facility] Blood specimen (specimen) 01/17/2021 10:33 AM MUSIC INTERNSHIP 01/17/2021 10:34 AM MUSIC INTERNSHIP Francisco Long MD LAB BLOOD ORDERABLES Final Res ult [facility] [address] [place] [address] * (ABNORMAL) Hematocrit (01/10/2021 8:28 AM MUSIC INTERNSHIP) Hct 30.2(L) 35.0 - 45.0 % [facility] Blood specimen (specimen) 01/10/2021 8:28 AM MUSIC INTERNSHIP 01/10/2021 8:28 AM MUSIC INTERNSHIP Francisco Long MD LAB BLOOD ORDERABLES Final Res ult Performing Organization Address [facility] Co de Phone Number [facility] [address] [place] [address] * (ABNORMAL) Hemoglobin (01/10/2021 8:28 AM MUSIC INTERNSHIP) Hgb 8.8(L) 11.7 - 15.5 g/dL [facility] Blood specimen (specimen) 01/10/2021 8:28 AM MUSIC INTERNSHIP 01/10/2021 8:28 AM MUSIC INTERNSHIP Francisco Long MD LAB BLOOD ORDERABLES Final Res ult Performing Organization Address [facility] Co de Phone Number [facility] [address] [place] [address] documented in this encounter Visit Diagnoses Diagnosis Acute gastrointestinal hemorrhage- Primary Unspecified, hemorrhage of gastrointestinal tract Iron deficiency anemia due to chronic blood loss Iron deficiency anemia secondary to blood loss (chronic) documented in this encounter Additional Health Concerns Infection Onset Date Last Indicated Resolved Time Respiratory Infection (TITI), contact + droplet Comment:Automatically added due to negative COVID-19 result. 12/29/2020 12/29/2020 01/12/2021 3:0 6 AM MUSIC INTERNSHIP documented as of this encounter Care Teams Pbx Supervisor Relationship Specialty Start Date End Date Francisco Long MD PCP - General 02/23/17 05/15/22 Neil Ag MD PhD [address] [place] [address] Radiation Oncologist Radiation Oncology 12/17/18 [place] [address] [address] Referring Physician General Surgery 12/17/18 [place] [address] [address] Medical Oncologist/Business Technology Analyst Medical Oncology 12/17/18 [place] [address] [address] Consulting Physician Gastroenterology 01/07/20 documented as of this encounter
--- OUTSIDE RECORDS SUMMARY | 2024-11-16 13:00 | XMS_ITS | Encounter Summary ---
Author Organization [facility] Medical Group Address [address] [facility] [address] [place] [address] Care Team Providers Care Fabrication And Assembly Supervisor Name Role Phone Francisco Long MD Primary Care Provider [phone] Neil Ag MD PhD Unavailable [phone] Ita estrada MD Unavailable Caron Mohan MD Unavailable Pebbles Felton MD Unavailable [phone] Encounter Details Date Type Department Care Team (Late st Contact Info) Description 12/31/2020 Orders Only [facility] [address] [facility] [address] [place] [address] Francisco Long MD [address] [place] [address] [address] [place] [address] Anemia, unspecified type (Primary Dx) Social History Tobacco Use [...] on file 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 FOOD 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 Gender Identity Not on file Sexual Orientation Not on file documented as of this encounter Miscellaneous Notes * Addendum Note - Kae Burton - 12/31/2020 2:32 PM CSTAddended by: KAE BURTON on: 01/03/2021 09:15 AM Modules accepted: Orders MANAGER documented in this encounter Plan of Treatment Not on file documented as of this encounter Results * (ABNORMAL) Hemoglobin and hematocrit (01/03/2021 9:19 AM FOOD MANAGER) Hgb 8.5(L) 11.9 - 15.5 g/dL [facility] ([place]) Hct 28.8(L) 35.6 - 45.5 % [facility] ([place]) Blood specimen (specimen) 01/03/2021 9:19 AM FOOD MANAGER 01/03/2021 10:17 AM FOOD MANAGER us Francisco Long MD LAB BLOOD ORDERABLES Final Res ult [facility] ([place]) [address] [facility] Department [place] [address] documented in this encounter Visit Diagnoses Diagnosis Anemia, unspecified type- Primary documented in this encounter Additional Health Concerns Infection Onset Date Last Indicated Resolved Time Respiratory Infection (TITI), contact + droplet Comment:Automatically added due to negative COVID-19 result. 12/29/2020 12/29/2020 01/12/2021 3:0 6 AM FOOD MANAGER documented as of this encounter Care Teams Fabrication And Assembly Supervisor Relationship Specialty Start Date End Date Francisco Long MD PCP - General 02/23/17 05/15/22 Neil Ag MD PhD [address] [place] [address] Radiation Oncologist Radiation Oncology 12/17/18 [place] [address] [address] [facility] [address] [place], [place] [id number] Referring Physician General Surgery 12/17/18 [place] [address] [address] [place] [id number] Medical Oncologist/Set Off Press Operator Medical Oncology 12/17/18 [place] [address] [address] [facility] [address] [facility] [place] [id number] Consulting Physician Gastroenterology 01/07/20 documented as of this encounter
--- OUTSIDE RECORDS SUMMARY | 2024-11-16 13:00 | XMS_ITS | Encounter Summary ---
Author Organization [facility] Address [address] [place] [address] Care Team Providers Care Waiter/Waitress Take Out Name Role Phone Francisco Long MD Primary Care Provider [phone] Neil Ag MD PhD Unavailable [phone] Ita estrada MD Unavailable Caron Mohan MD Unavailable [phone] Pebbles Felton MD Unavailable [phone] Encounter Details Date Type Department Care Team (Late st Contact Info) Description 01/03/2021 Orders Only [facility] [address] [place] [address] Francisco Long MD [address] [place] [address] [address] [place] [address] Acute upper GI bleed (Primary Dx) Social History Tobacco Use Types [...] on file 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 12/29/2020 12/29/2020 01/12/2021 3:0 6 AM COIL FINISHER documented as of this encounter Care Teams Waiter/Waitress Take Out Relationship Specialty Start Date End Date Francisco Long MD PCP - General 02/23/17 05/15/22 Neil Ag MD PhD [address] [place] [address] Radiation Oncologist Radiation Oncology 12/17/18 [place] [address] [facility] [address] [place], [place] [id number] Referring Physician General Surgery 12/17/18 [place] [address] [facility] [address] [place], [place] [id number] Medical Oncologist/Box Builder Medical Oncology 12/17/18 [place] [address] [facility] [address] [place] [address] Consulting Physician Gastroenterology 01/07/20 documented as of this encounter
--- OUTSIDE RECORDS SUMMARY | 2024-11-16 13:00 | XMS_ITS | Encounter Summary ---
Author Organization [facility] Address [address] [place] [address] Care Team Providers Care Patroller Name Role Phone Francisco Long MD Primary Care Provider [phone] Neil Ag MD PhD Unavailable Ita Vazquez MD Unavailable Caron Mohan MD Unavailable Pebbles Felton MD Unavailable [phone] Encounter Details Date Type Department Care Team (Late st Contact Info) Description 01/04/2021 Orders Only [facility] [address] [place] [address] Francisco Long MD [address] [place] [address] [address] [place] [address] Social History Tobacco Use Types Packs/Day Years [...] on file 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 ASSISTANT CASINO SHIFT MANAGER Gender Identity Not on file Sexual [...] result. 12/29/2020 12/29/2020 01/12/2021 3:0 6 AM ASSISTANT CASINO SHIFT MANAGER documented as of this encounter Care Teams Patroller Relationship Specialty Start Date End Date Francisco Long MD PCP - General 02/23/17 05/15/22 Neil Ag MD PhD [address] [place] [id number] Radiation Oncologist Radiation Oncology 12/17/18 [place] [address] [place], [place] [id number] Referring Physician General Surgery 12/17/18 [place] [address] [place], [place] [id number] Medical Oncologist/Telegraphic Typewriter Mechanic Medical Oncology 12/17/18 [place] [address] [facility] [address] [place] [address] Consulting Physician Gastroenterology 01/07/20 documented as of this encounter
--- OUTSIDE RECORDS SUMMARY | 2024-11-16 13:00 | XMS_ITS | Encounter Summary ---
Author Organization [facility] Address [address] [place] [address] Care Team Providers Care Shirt Marker Name Role Phone Francisco Long MD Primary Care Provider [phone] Neil Ag MD PhD Unavailable [phone] Ita estrada MD Unavailable Caron Mohan MD Unavailable Pebbles Felton MD Unavailable [phone] Reason for Visit * Reason Comments Anemia Encounter Details Date Type Department Care Team (Late st Contact Info) Description 01/03/2021 10:00 AM SPORTING GOODS SALES ASSOCIATE Office Visit [facility] [address] [place] [address] Francisco Long MD [address] [place] [address] [address] [place], [place] [id number] Acute upper GI bleed (Primary Dx); Body mass index (BMI) 29.0-29.9, adult; Chronic GERD; Essential hypertension; Recurrent pulmonary emboli (CMS/HCC) Social History Tobacco Use Types Packs/Day Years [...] on file 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 SPORTING GOODS 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 ASSOCIATE Gender Identity Not on file Sexual Orientation Not on file documented as of this encounter Last Filed Vital Signs Vital Sign Reading Time Taken Comments Blood Pressure 120/70 01/03/2021 9:46 AM SPORTING GOODS SALES ASSOCIATE Pulse 80 01/03/2021 9:46 AM SPORTING GOODS SALES ASSOCIATE Temperature - - Respiratory Rate 20 01/03/2021 9:46 AM SPORTING GOODS SALES ASSOCIATE Oxygen Saturation - - Inhaled Oxygen Concentration - - Weight 86.2 kg (190 lb) 01/03/2021 9:46 AM SPORTING GOODS SALES ASSOCIATE Height 170.2 cm (5' 7 ) 01/03/2021 9:46 AM SPORTING GOODS SALES ASSOCIATE Body Mass Index 29.76 01/03/2021 9:46 AM SPORTING GOODS SALES ASSOCIATE documented in this encounter Progress Notes * Francisco Long MD - 01/03/2021 10:00 AM CST Subjective/Objective Patient ID: Jolene Cedillo is a 75 y.o. female. Chief Complaint Anemia HPI Patient returns today with her she did get her lab work done early now so we do not have the results she had she has also get done 6:00 a.m. but she elected not to do it until just before shecame into the appointment to see me she has had no melena or hematochezia over the weekend that sheknows of she feels fine no shortness of breath she has been off the Eliquis she understands stay off the Eliquis until we can excess her extent of bleeding She is agreeable to seek GI consultation for EGD hopefully this week Proper instructions how to use her Pepcid and Protonix were discussed with her she understands the take Protonix 1/2 hour to 45 minutes before breakfast take the Pepcid each evening she is going to hold off on the iron tablets because the possible confusion with black stools that might be indicatedof a more aggressive GI bleeding and will start IV iron supplementation Review of Systems Vitals: 01/03/21 0946 BP: 120/70 BP Location: Left arm Patient Position: Sitting Pulse: 80 Resp: 20 Weight: 86.2 kg (190 lb) Height: 170.2 cm (5' 7 ) Physical Exam She is pleasant no distress she does not appear pale the lungs clear cardiovascular regular abdomensoft nontender Assessment/Plan Diagnoses and all orders for this visit: Acute upper GI bleed (Primary) EGD this week IV iron supplementation repeat hemoglobin today she will hold the p.o. iron so that does not interfere with EGD or with evaluation of stool color Body mass index (BMI) 29.0-29.9, adult She will start diet exercise after this episode a cleared up Chronic GERD Proper instructions how to take her PPI and H2 antagonist discussed with patient and Essential hypertension Will continue monitor currently under good control Recurrent pulmonary emboli (CMS/HCC) Off Eliquis this will need to be restarted once GI bleed is ascertained is being controlled Side effects, risks, interactions reviewed with patient. Indications for testing discussed. Any further problems to contact us. She was told what to look out for and verbalized understanding. The patient was given the opportunity to have all questions answered today and was in agreement with the plan of care. TING GOODS SALES ASSOCIATE documented in this encounter Plan of Treatment Not on file documented as of this encounter Visit Diagnoses Diagnosis Acute upper GI bleed- Primary Unspecified, hemorrhage of gastrointestinal tract Body mass index (BMI) 29.0-29.9, adult Chronic GERD Essential hypertension Unspecified essential hypertension Recurrent pulmonary emboli (CMS/HCC) (HCC) documented in this encounter Additional Health Concerns Infection Onset Date Last Indicated Resolved Time Respiratory Infection (TITI), contact + droplet Comment:Automatically added due to negative COVID-19 result. 12/29/2020 12/29/2020 01/12/2021 3:0 6 AM SPORTING GOODS SALES ASSOCIATE documented as of this encounter Care Teams Shirt Marker Relationship Specialty Start Date End Date Francisco Long MD PCP - General 02/23/17 05/15/22 Neil Ag MD PhD [address] [place] [address] Radiation Oncologist Radiation Oncology 12/17/18 [place] [address] [address] [facility] [address] [place], [place] [address] Referring Physician General Surgery 12/17/18 [place] [address] [address] [place] [address] [place] [address] Medical Oncologist/Stone Setter Medical Oncology 12/17/18 [place] [address] [facility] [address] [place], [place] [address] Consulting Physician Gastroenterology 01/07/20 documented as of this encounter
--- OUTSIDE RECORDS SUMMARY | 2024-11-16 13:00 | XMS_ITS | Encounter Summary ---
Author Organization [facility] Address [address] [place] [address] Care Team Providers Care Infrastructure Technician Name Role Phone Francisco Long MD Primary Care Provider Neil Ag MD PhD Unavailable [phone] Ita estrada MD Unavailable Caron Mohan MD Unavailable Pebbles Felton MD Unavailable [phone] Encounter Details Date Type Department Care Team (Late st Contact Info) Description 01/03/2021 Telephone [facility] Gastroenterology at [address] [place] [address] Pebbles Felton MD [address] [place] [address] [address] [place] [address] Social History Tobacco Use Types Packs/Day Years [...] on file 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 COMMERCIAL LENDING RELATIONSHIP MANAGER Gender Identity Not on file Sexual Orientation Not on file documented as of this encounter Miscellaneous Notes * Telephone Encounter - Aditi Dent MA - 01/03/2021 1:12 PM CST We received a referral from Dr. Long to get pt scheduled for an EGD this week. We had a cancellation on Sunday01/05/2021 at 12:30 pm with an arrival at 11:30 am. Pt has been scheduled and informed that a COVID test is required 22-3 days prior to the procedure. An order was put in and she is going to get test done today at [facility] anytime between 7am-4pm. Pt on blood thinner (if yes, list medication and reason for taking): yes, Prashant pt instructed to stop taking 4 days prior to the procedure. Pt states that she has been off blood thinner since Sunday. Has pt had recent stent placement within the last year: no Pt have pacemaker/defibrillator: no Pt diabetic (if yes, insulin or oral meds): no Pt have kidney disease or on dialysis: no Pt on iron: yes, pt instructed to stop taking Mechanical Heart valve: no Instructed pt to call with any medical changes and/or medications/insurance. ERCIAL LENDING RELATIONSHIP MANAGER documented in this encounter Plan of Treatment Not on file documented as of this encounter Results * COVID-19 Coronavirus RNA Nasopharyngeal (01/03/2021 2:21 PM COMMERCIAL LENDING RELATIONSHIP MANAGER) COVID-19 RNA Not Detected [facility] ([place]) Comment: Testing performed as a component of [...] and NAAT . ??Testing performed by the [facility]ious [facility]. The Novel Coronavirus Assay (COVID-19)Real Time RT-PCR assay is [...] [facility] ([place]) Comment:Testing performed by : [facility], [address] [place] [address], [id number] Employeed in healthcare? No [facility] ([place]) Comment:Testing performed by : [address], [address] status? No [facility] ([place]) Comment:Testing performed by : [facility], [address] [place] [address], [address] Group care resident? No [facility] ([place]) Comment:Testing performed by : [facility], [address] [place] [address], [address] Hospitalized? No [facility] ([place]) Comment:Testing performed by : [facility], [address] [place] [address], [address] Is patient in ICU? No [facility] ([place]) Comment:Testing performed by : [address], [address] Symptomatic as defined by CDC? No [facility] ([place]) Comment:Testing performed by : [address], [address] Nasopharyngeal 01/03/2021 2: 21 PM COMMERCIAL LENDING RELATIONSHIP MANAGER 01/04/2021 2:55 AM COMMERCIAL LENDING RELATIONSHIP MANAGER Narrative MEHRAN ParedesMUSCADINE) - 01/04/2021 8:24 PM COMMERCIAL LENDING RELATIONSHIP MANAGER What is the reason for testing?->Screening prior to scheduled procedure or surgery Pebbles Felton MD LAB MICROBIOLOGY - GENERAL ORDERABLES Final Result [facility]HR[facility] THOMAS ([place]) [address] [facility] [address] Department [place] [address] documented in this encounter Visit Diagnoses Diagnosis Pre-procedure lab exam- Primary Pre-procedural laboratory examination Acute upper GI bleed Unspecified, hemorrhage of gastrointestinal tract Pre-procedure lab exam Pre-procedural laboratory examination documented in this encounter Orders Case Request Count Last Ordered Date First Orde red Date CASE REQUEST GI 1 01/03/2021 documented in this encounter Additional Health Concerns Infection Onset Date Last Indicated Resolved Time Respiratory Infection (TITI), contact + droplet Comment:Automatically added due to negative COVID-19 result. 12/29/2020 12/29/2020 01/12/2021 3:0 6 AM COMMERCIAL LENDING RELATIONSHIP MANAGER documented as of this encounter Care Teams Infrastructure Technician Relationship Specialty Start Date End Date Francisco Long MD PCP - General 02/23/17 05/15/22 Neil Ag MD PhD [address] [place] [address] Radiation Oncologist Radiation Oncology 12/17/18 [place] [address] [address] [place] [address] Referring Physician General Surgery 12/17/18 [place] [address] [address] [place] [id number] Medical Oncologist/Train Planner Medical Oncology 12/17/18 [place] [address] [place] [address] Consulting Physician Gastroenterology 01/07/20 documented as of this encounter
--- OUTSIDE RECORDS SUMMARY | 2024-11-16 13:00 | XMS_ITS | Encounter Summary ---
Author Organization [facility] Healthcare Address [address] [place] [address] Care Team Providers Care Spanish Moss Picker Name Role Phone Francisco Long MD Primary Care Provider [phone] Neil Ag MD PhD Unavailable [phone] Ita Vazquez MD Unavailable Caron Mohan MD Unavailable Pebbles Felton MD Unavailable [phone] Encounter Details Date Type Department Care Team (Late st Contact Info) Description 01/05/2021 12:41 PM ROTATING EQUIPMENT ENGINEER Anesthesia Event [facility] [address] [place] [address] [place] [id number] [address] Gabe Tian MD [address] [place] [id number] Anesthesia Record Procedure Summary Procedure Name Responsible Anesthesiologist Anesthesia Start Time Anesthesia Stop Time ESOPHAGOGASTRODUODENOSCOPY BIOPSY Teresita Roger MD 01/05/21 1241 01/05/21 1252 Events Date Time Event Comment 01/05/2021 1222 1240 In Room 1241 An Start 1241 An Start Data 1241 Start Supplemental O2 1241 Patient Positioned Laterally 1244 Proc Start 1252 Out of Room 1252 An Stop 1315 Handoff to RN I completed my handoff to the receiving nurse during which we: 1. Patient identified 2. Responsible provider identified 3. Pertinent medical history reviewed 4. Procedure type and surgical course discussed 5. Intraoperative anesthetic management and any significant issues discussed 6. Expectations and concerns for postop period discussed 7. Questions solicited from receiving nurse 8. Patient disposition at the time of handoff: No value filed. Meds Name Total lidocaine (cardiac) syringe 2 % 50 mg propofol 100 mg sodium chloride 0.9% infusion 0 mL * Agents Name O2 * Blood No blood administrations on file. Lines, Drains, and Airways Type Details Placement Removal Peripheral IV Placement Date: 12/27 ; Placement Time: 1208; Catheter Size: 22 G; Orientation: Right; Location: Antecubital; Site Prep: Chlorhexidine, Alcohol; Technique: Anatomical landmarks; Inserted by: Melina; Insertion Attempts: 3; Patient Tolerance: Tolerated well; Removal Date: 01/05/21; Removal Time: 1338; Removal Reason: Discharge 01/05/21 1208 by Bruno Saldivar RN 01/05/21 1338 by Zulema Patel RN documented in this encounter Social History [...] on file 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 ROTATING EQUIPMENT ENGINEER Gender Identity Not on file Sexual Orientation Not on file documented as of this encounter OR Notes * Anesthesia Postprocedure Evaluation - Teresita Roger MD - 01/05/2021 1:15 PM CST Patient: Jolene Cedillo Procedure Summary Date: 01/05/21 Room / Location: [facility] ENDOSCOPY ROOM 1 / [facility] ENDOSCOPY Anesthesia Start: 1241 Anesthesia Stop: 1252 Procedure: ESOPHAGOGASTRODUODENOSCOPY BIOPSY (N/A ) Diagnosis: Acute upper GI bleed (Acute upper GI bleed [K92.2]) Providers: Pebbles Felton MD Responsible Provider: Teresita Roger MD Anesthesia Type: general/TIVA ASA Status: 3 Anesthesia Type: general/TIVA Last vitals BP 133/67 Pulse 67 Temp 36.8 ??C (98.2 ??F) (Temporal) Resp 20 SpO2 98% Anesthesia Post Evaluation Patient location during evaluation: PACU Patient participation: complete - patient participated Level of consciousness: fully awake Pain management: satisfactory to patient Airway patency: adequate Anesthetic complications: no Cardiovascular status: acceptable Respiratory status: acceptable Hydration status: acceptable Pt is: normothermic Nausea/Vomiting status: none TING EQUIPMENT ENGINEER * Anesthesia Preprocedure Evaluation - Teresita Roger MD - 01/05/2021 11:46 AM CST Images from the original note were not included. Anesthesia Evaluation Jolene Cedillo is a 75 y.o. female Procedure(s): ESOPHAGOGASTRODUODENOSCOPY Pre-Op Diagnosis Codes: * Acute upper GI bleed [K92.2] HISTORY Past Medical History Information obtained from: patient and chart. Cardiovascular + Hypertension + Hyperlipidemia + DVT/PE Hepatic / Heme + History of anemia Gastrointestinal + GERD - on daily therapy. Endocrine / Other + Cancer history Cancer type: uterine; breast. + Rheumatological disease - rheumatoid arthritis. Patient Active Problem List Diagnosis ??? Mixed hyperlipidemia ??? Essential hypertension ??? 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 rheumatoid factor (CMS/HCC) ??? Malignant neoplasm of upper-inner quadrant of left breast in female, estrogen receptor positive(CMS/HCC) ??? Chronic diastolic heart failure (CMS/HCC) ??? Iron deficiency anemia due to chronic blood loss ??? Hiatal hernia ??? High risk of cardiac event ??? Recurrent pulmonary emboli (CMS/HCC) ??? Chronic GERD ??? History of breast cancer ??? History of uterine cancer ??? Hiatal hernia ??? 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) ??? Acute upper GI bleed Past Medical History: Diagnosis Date ??? Anemia ??? GERD (gastroesophageal reflux disease) ??? HX OTHER MEDICAL B/L arthroscopic knee surg ??? HX OTHER MEDICAL RA ??? HX OTHER MEDICAL R knee replacement ??? HX OTHER MEDICAL blood clot- right leg ??? Hyperlipidemia Hyperlipidemia ??? Hypertension Hypertension ??? Screening mammogram, encounter for 1945 ??? Uterine cancer (CMS/HCC) 04/2018 Past Surgical History: Procedure Laterality Date ??? BREAST LUMPECTOMY Left 2018 ??? CATARACT EXTRACTION Cataract extraction ??? COLONOSCOPY 12/2019 ??? HYSTERECTOMY 06/2018 OB History 0 Para 0 Term 0 0 AB 0 Living 0 SAB 0 TAB 0 Ectopic 0 Multiple 0 Live Births 0 Allergies Allergen Reactions ??? Atorvastatin Muscle pain ??? Codeine Nausea only Reaction: Nausea, Med List Status: Nurse Complete Set By: Bruno Saldivar RN at 01/05/2021 11:38 AM Taking? Last Dose Start Date End Date Provider apixaban (ELIQUIS) 5 mg tablet () 12/09/19 12/30/20 Francisco Long MD Take 1 tablet (5 mg total) by mouth 2 (two) times a day Patient not taking: Reported on 01/03/2021 Notes: Last taken12/31 carvediloL (COREG) 6.25 mg tablet 01/05/2021 12/23/20 -- Francisco Long MD TAKE ONE TABLET BY MOUTH TWICE DAILY WITH MEALS cholecalciferol (Vitamin D3) 400 unit capsule Past Week -- -- ProviderAnnabelle MD famotidine (PEPCID) 40 mg tablet 01/04/2021 12/30/20 12/30/21 Francisco Long MD Take 1 tablet (40 mg total) by mouth daily ferrous sulfate 325 mg (65 mg of elemental iron) tablet Past Week 07/01/20 07/01/21 Francisco Long MD Take 1 tablet (325 mg total) by mouth daily with breakfast letrozole (FEMARA) 2.5 mg tablet 01/04/2021 -- -- Caron Mohan MD losartan (COZAAR) 100 mg tablet 01/05/2021 09/24/20 -- Francisco Long MD TAKE 1 TABLET BY MOUTH EVERY DAY methotrexate 2.5 mg tablet Past Week -- -- ProviderAnnabelle MD pantoprazole DR (PROTONIX) 40 mg EC tablet 01/05/2021 12/30/20 12/30/21 Francisco Long MD Take 1 tablet (40 mg total) by mouth daily rosuvastatin (CRESTOR) 5 mg tablet 01/04/2021 07/01/20 07/01/21 Francisco Long MD Take 1 tablet (5 mg total) by mouth daily Current Facility-Administered Medications: ??? ondansetron (ZOFRAN) injection 4 mg, 4 mg, intravenous, Q30 Min PRN ??? sodium chloride 0.9% flush 0.5-20 mL, 0.5-20 mL, intra-catheter, Q8H RAMYA ??? sodium chloride 0.9% flush 0.5-20 mL, 0.5-20 mL, intra-catheter, PRN ??? sodium chloride 0.9% infusion, 30 mL/hr, intravenous, Continuous ??? sodium chloride 0.9% infusion, 125 mL/hr, intravenous, Continuous Social History Tobacco Use Smoking Status Never Smoker Smokeless Tobacco Never Used Substance and Sexual Activity Alcohol Use No Substance and Sexual Activity Drug Use No Family History Problem Relation Age of Onset ??? Heart attack Father Myocardial infarction; ??? Diabetes Father Diabetes mellitus; ??? Heart disease Father Heart disease; ??? Diabetes type II Other Family history of Diabetes -Type 2; ??? Diabetes Mother Diabetes mellitus; ??? Other Father's Sister mastectomy. ??CA; Vitals: 01/05/21 1131 BP: 161/88 Pulse: 75 Resp: 24 Temp: 36.8 ??C (98.2 ??F) SpO2: 98% PT: No results found for requested labs within last 720 hours. INR: No results found for requested labs within last 720 hours. APTT: No results found for requested labs within last 720 hours. Hgb A1C: 01/03/2021: 5.2 % CBC RBC: 01/03/2021: 3.30 M/cumm* RDW: 12/07/2020: 16.4 %* MCHC: 01/03/2021: 29.5 g/dL* MCH: 01/03/2021: 25.8 pg* MCV: 01/03/2021: 87.3 fL Hct: 01/03/2021: 28.8 %*; 28.8 %* Hgb: 01/03/2021: 8.5 g/dL*; 8.5 g/dL* WBC: 01/03/2021: 5.6 K/cumm MPV: 01/03/2021: 10.1 fL Platelets: 01/03/2021: 274 K/cumm RDW CV: 01/03/2021: 17.1 %* RDW Sd: 01/03/2021: 51.1 fL* BMP Glucose: 12/29/2020: 204 mg/dL* Calcium: 12/29/2020: 8.3 mg/dL* Sodium: 12/29/2020: 140 mmol/L Potassium: 12/29/2020: 4.5 mmol/L CO2: 12/29/2020: 27 mmol/L Chloride: 12/29/2020: 105 mmol/L BUN: 12/29/2020: 15 mg/dL Creatinine: 12/29/2020: 0.78 mg/dL DOS Physical Exam Medical history, medications, and allergies reviewed. Attestation: I endorse the findings of the anesthesia pre-evaluation assessment dated: 01/05/2021. Airway Exam: Mallampati: II Cervical ROM: FROM TM distance: >4 Jaw ROM: full Cardiovascular Exam: Rate: regular Rhythm: regular Pulmonary Exam: LCTA, bilat Current state: Patient's current state is cooperative and interactive. Anesthesia Plan ASA 3 My patient is approved for the Anesthesia Controlled Medication protocol when under care of a [employer] ARCHITECT Planned anesthesia: General/TIVA Induction: Induction: intravenous. Postoperative Plan: No plan for postoperative opioid use. No postoperative mechanical ventilation intended. Patient's planned disposition post procedure is Outpatient. Informed Consent: Discussed plan with attending and [employer] ARCHITECT. Anesthesia plan and risks discussed with patient. Consent and Attending signature: I and/or my designee have discussed the anesthesia plan, benefits, possible alternatives, parental presence at time of induction (if indicated), and clinically relevant risks that may include dental injury, unintentional awareness, and/or other complications. The patient and/or parent/legal guardian understand, and agree to proceed. All questions answered. TING EQUIPMENT ENGINEER TING EQUIPMENT ENGINEER documented in this encounter Plan of Treatment Not on file documented as of this encounter Visit Diagnoses Not on filedocumented in this encounter Administered Medications Inactive Administered Medications - up to 3 most recent administrations Medication Order MAR Action Action Date Dose Rate Site lidocaine (cardiac) (XYLOCAINE) preservative free injection intravenous, As needed, Starting on Sun01/05/21 at 1244, Anesthesia Intra-op, Indications: Ventricular ArrhythmiasIndications:Ventricula r Arrhythmias Given 01/05/2021 12:44 PM ROTATING EQUIPMENT ENGINEER 50 mg propofoL (DIPRIVAN) IV intravenous, As needed, Starting on Sun01/05/21 at 1244, Anesthesia Intra-op Given 01/05/2021 12:44 PM ROTATING EQUIPMENT ENGINEER 100 mg sodium chloride 0.9% infusion 125 mL/hr, intravenous, Continuous, Starting on Sun01/05/21 at 1200, Recovery (GI) New Bag 01/05/2021 12:40 PM ROTATING EQUIPMENT ENGINEER documented in this encounter Additional Health Concerns Infection Onset Date Last Indicated Resolved Time Respiratory Infection (TITI), contact + droplet Comment:Automatically added due to negative COVID-19 result. 12/29/2020 12/29/2020 01/12/2021 3:0 6 AM ROTATING EQUIPMENT ENGINEER documented as of this encounter Care Teams Spanish [employer] Picker Relationship Specialty Start Date End Date Francisco Long MD PCP - General 02/23/17 05/15/22 Neil Ag MD PhD [address] [place] [id number] Radiation Oncologist Radiation Oncology 12/17/18 [place] [address] [facility] [address] [place] [address] Referring Physician General Surgery 12/17/18 [place] [address] [facility] [address] [place] [id number] Medical Oncologist/Tooling Engineering Tech Medical Oncology 12/17/18 [place] [address] [facility] [address] [place] [address] Consulting Physician Gastroenterology 01/07/20 documented as of this encounter
--- OUTSIDE RECORDS SUMMARY | 2024-11-16 13:00 | XMS_ITS | Encounter Summary ---
Author Organization [facility] Healthcare Address [address] [place] [address] Care Team Providers Care Chief Nursing Officer Name Role Phone Francisco Long MD Primary Care Provider Neil Ag MD PhD Unavailable [phone] Ita Vazquez MD Unavailable Caron Mohan MD Unavailable [phone] Pebbles Felton MD Unavailable [phone] Encounter Details Date Type Department Care Team (Late st Contact Info) Description 01/03/2021 9:15 AM MILLINERY TEACHER Lab [facility] [address] [place] [address] Francisco Long MD [address] [place], [place] [id number] Anemia, unspecified type; Controlled diabetes mellitus type 2 with complications, unspecified whether usp insulin use ([facility]) Discharge Disposition: Discharge to home or self [...] on file 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 MILLINERY TEACHER Gender Identity Not on file Sexual Orientation Not on file documented as of this encounter Discharge Disposition Disposition Code Departure Means Destination Discharge to home or self care documented in this encounter Miscellaneous Notes * Result Encounter Note - Francisco Long MD - 01/03/2021 12:50 PM MILLINERY TEACHER Okay to leave a message with patient or her hemoglobin is 8.5 stable repeat hemoglobin and hematocrit January 10 and diagnosis anemia GI bleed set up IV iron 300 mg of venofer weekly x3 doses diagnosis GI bleed iron deficiency anemia INERY TEACHER documented in this encounter Plan of Treatment Not on file documented as of this encounter Procedures Procedure Name Priority Date/Time Associated Diagnosis Comments CLINICAL PATHOLOGY REPORT Routine 01/03/2021 9:19 AM MILLINERY TEACHER DIFFERENTIAL AUTO Routine 01/03/2021 9:1 9 AM MILLINERY TEACHER Anemia, unspecified type IRON PROFILE W/ IBC Routine 01/03/2021 9 :19 AM MILLINERY TEACHER Anemia, unspecified type CBC WITH AUTO DIFFERENTIAL Routine 01/03/2021 9:19 AM MILLINERY TEACHER Anemia, unspecified type HEMOGLOBIN AND HEMATOCRIT Routine 01/03/2021 9:19 AM MILLINERY TEACHER Anemia, unspecified type PROTEIN ELECTROPHORESIS, WITH REFLEX, SERUM Routine 01/03/2021 9:19 AM MILLINERY TEACHER Anemia, unspecified type HEMOGLOBIN A1C Routine 01/03/2021 9:19 AM MILLINERY TEACHER Controlled diabetes mellitus type 2 with complications, unspecified whether usp insulin use ([facility]) FOLATE Routine 01/03/2021 9:19 AM MILLINERY TEACHER Anemia, unspecified type VITAMIN B12 Routine 01/03/2021 9:19 AM MILLINERY TEACHER Anemia, unspecified type documented in this encounter Results * Clinical pathology report (01/03/2021 9:19 AM MILLINERY TEACHER) Miscellaneous 01/03/2021 9:1 9 AM MILLINERY TEACHER 01/04/2021 9:12 AM MILLINERY TEACHER Narrative 01/04/2021 2:32 PM MILLINERY TEACHER EPIC results best viewed via link to PDF [facility] Department of Pathology [address] [place] [address] Final Report Patient Name: ? SHAUNA GORDON Destiny Address: ??[address] [place] [id number] Gender: ??F : ??1945 (Age: 75) Service: ??Laboratory Location: ??Lab Hospital #: ??[id number] Patient Type: ??[facility] EP ANCILLARY Taken: ??01/03/2021 Received: ?? 01/04/2021 Accessioned: ??01/04/2021 Physician(s): ??Francisco Long MD [facility] Specimen(s) Received A: Blood (serum) Serum Protein Electrophoresis Reported: 01/04/2021 Interpretation: Moderate hypogammaglobulinemia. Comment: Moderate hypogammaglobulinemia is present. Decreased gamma globulin may be congenital or may be secondary to such conditions as protein wasting, myeloma, malignant lymphoma/leukemia, immunosuppressive therapy, common variable immunodeficiency, and other conditions. If myeloma is suspected clinically, urine protein immunofixation study for light chains is recommended. See Clinical Desktop and/or separate report for protein fraction table. ?? Kishore Perea MD ??Report Electronically Reviewed and Signed Out By ??Kishore Perea MD ??01/04/2021 14:25:59 ? The performance characteristics of some immunohistochemical stains, fluorescence in-situ hybridization tests and immunophenotyping by flow cytometry cited in this report (if any) were determined by the Surgical Pathology Department at [facility] as part of an ongoing quality controller program and in compliance with federally mandated regulations drawn from the Clinical Laboratory Improvement Act of 1988 (CLIA '88). ??Some of these tests rely on the use of analyte specific reagents and are subject to specific labeling requirements by the US Food and Drug Administration. ??Such diagnostic tests may only be performed in a facility that is certified by the Department of Health and Human Services as a high complexity laboratory under CLIA '88. The FDA has determined that such clearance or approval is not necessary. ??This test is used for clinical purposes. ??It should not be regarded as investigational or for research. ??Nevertheless, federal rules concerning the medical use of analyte specific reagents require that the following disclaimer be attached to the report: This test was developed and its performance characteristics determined by the Surgical Pathology Department [facility]. ??It has not been cleared or approved by the U. S. Food and Drug Administration. REPORT IMAGES AND SCANNED DOCUMENTS, IF INCLUDED, ONLY VIEWABLE IN PDF VERSION OF REPORT Francisco Long MD LAB PATHOLOGY ORDERABLES Final Result * (ABNORMAL) Differential, auto (01/03/2021 9:19 AM MILLINERY TEACHER) Neutrophil abs 4.7 1.7 - 6.5 K/cumm [facility] ([place]) Imm gran abs 0.1 0.0 - 0.1 K/cumm [facility] ([place]) Lymphocyte abs 0.3(L) 0.8 - 3.3 K/cumm [facility] ([place]) Monocyte abs 0.3 0.2 - 0.8 K/cumm [facility] ([place]) Eosinophil abs 0.1 0.0 - 0.5 K/cumm [facility] ([place]) Basophil abs 0.0 0.0 - 0.1 K/cumm [facility] ([place]) Neutrophil pct 84.1 % [facility] ([place]) Comment: Consistent with previous result Interpretive Data Percent cell count reference ranges are not reported, since discordance with absolute values may lead to misinterpretation of CBC data. Current Interpretive Data was last revised on 2018. Imm gran pct 1.1 % [facility] ([place]) Comment: Interpretive Data Percent cell count reference ranges are not reported, since discordance with absolute values may lead to misinterpretation of CBC data. Current Interpretive Data was last revised on 2018. Lymphocyte pct 6.1 % [facility] ([place]) Comment: Consistent with previous result. Interpretive Data Percent cell count reference ranges are not reported, since discordance with absolute values may lead to misinterpretation of CBC data. Current Interpretive Data was last revised on 2018. Monocyte pct 5.9 % [facility] ([place]) Comment: Interpretive Data Percent cell count reference ranges are not reported, since discordance with absolute values may lead to misinterpretation of CBC data. Current Interpretive Data was last revised on 2018. Eosinophil pct 2.3 % [facility] ([place]) Comment: Interpretive Data Percent cell count reference ranges are not reported, since discordance with absolute values may lead to misinterpretation of CBC data. Current Interpretive Data was last revised on 2018. Basophil pct 0.5 % [facility] ([place]) Comment: Interpretive Data Percent cell count reference ranges are not reported, since discordance with absolute values may lead to misinterpretation of CBC data. Current Interpretive Data was last revised on 2018. Blood specimen (specimen) 01/03/2021 9:19 AM MILLINERY TEACHER 01/03/2021 10:17 AM MILLINERY TEACHER us Francisco Long MD LAB BLOOD ORDERABLES Final Res ult [facility] ([place]) 1 [facility] Department [place] [address] * (ABNORMAL) Hemoglobin and hematocrit (01/03/2021 9:19 AM MILLINERY TEACHER) Hgb 8.5(L) 11.9 - 15.5 g/dL [facility] ([place]) Hct 28.8(L) 35.6 - 45.5 % [facility] ([place]) Blood specimen (specimen) 01/03/2021 9:19 AM MILLINERY TEACHER 01/03/2021 10:17 AM MILLINERY TEACHER Francisco Long MD LAB BLOOD ORDERABLES Final Res ult [facility] ([place]) 1 [facility] Department [place] [address] * (ABNORMAL) CBC with auto differential (01/03/2021 9:19 AM MILLINERY TEACHER) WBC 5.6 3.8 - 9.9 K/cumm [facility] ([place]) Hgb 8.5(L) 11.9 - 15.5 g/dL [facility] ([place]) Hct 28.8(L) 35.6 - 45.5 % [facility] ([place]) Plt 274 150 - 400 K/cumm [facility] ([place]) MPV 10.1 9.1 - 12.3 fL [facility] ([place]) RBC 3.30(L) 3.90 - 5.20 M/cumm [facility] ([place]) MCV 87.3 81.3 - 96.4 fL [facility] ([place]) MCH 25.8(L) 27.1 - 33.3 pg [facility] ([place]) MCHC 29.5(L) 32.3 - 35.7 g/dL [facility] ([place]) RDW CV 17.1(H) 11.1 - 14.9 % [facility] ([place]) RDW SD 51.1(H) 35.7 - 48.1 fL [facility] ([place]) NRBC abs 0.03(H) 0.00 - 0.01 K/cumm [facility] ([place]) Blood specimen (specimen) 01/03/2021 9:19 AM MILLINERY TEACHER 01/03/2021 10:17 AM MILLINERY TEACHER Francisco Long MD LAB BLOOD ORDERABLES Final Res ult [facility] ([place]) [address] [place] [address] * Hemoglobin A1c (01/03/2021 9:19 AM MILLINERY TEACHER) [facility] Hgb A1C 5.2 4.0 - 5.6 % [facility] ([place]) Estimated Average Glucose 103 mg/dL [facility] ([place]) Comment: The ADA recommends reporting an estimated Average Glucose (eAG) with all Hemoglobin A1c results using the equation derived from a study of 507 normal and diabetic adults. ??Minority populations were underrepresented and children were not included. ?? (Diabetes Care 31:7072-0311, 2008). ??The eAG is not equivalent to a fasting glucose. Blood specimen (specimen) 01/03/2021 9:19 AM MILLINERY TEACHER 01/03/2021 10:17 AM MILLINERY TEACHER Francisco Long MD LAB BLOOD ORDERABLES Final Res ult Performing Organization Address [facility] Co de Phone Number [facility] ([place]) 1 [facility] [place] [address] * Vitamin B12 (01/03/2021 9:19 AM MILLINERY TEACHER) [facility] Vitamin B12 492 230 - 1,250 pg/mL [facility] ([place]) Comment:Testing performed by : [facility], [address] [place] [address], [address] Blood specimen (specimen) 01/03/2021 9:19 AM MILLINERY TEACHER 01/03/2021 2:34 PM MILLINERY TEACHER Francisco Long MD LAB BLOOD ORDERABLES Final Res ult [facility] ([place]) [address] [place] [address] * Folate (01/03/2021 9:19 AM MILLINERY TEACHER) [facility] Folic acid 9.3 >=5.0 ng/mL [facility] ([place]) Comment:Testing performed by : [address], [address] Blood specimen (specimen) 01/03/2021 9:19 AM MILLINERY TEACHER 01/03/2021 2:34 PM MILLINERY TEACHER us Francisco Long MD LAB BLOOD ORDERABLES Final Res ult [facility] ([place] 1 [facility] Department [place] [address] * (ABNORMAL) Protein Electrophoresis, With Reflex, Serum (01/03/2021 9:19 AM MILLINERY TEACHER) Protein, sr 5.7(L) 6.2 - 8.2 g/dL [facility] ([place]) Comment:Testing performed by : [address], [address] Albumin 3.5 3.2 - 5.0 g/dL [facility] ([place]) Comment:Testing performed by : [address], [address] Alpha-1 globulin 0.4 0.2 - 0.4 g/dL [facility] ([place]) Comment:Testing performed by : [address], [address] Alpha-2 globulin 0.6 0.5 - 1.0 g/dL [facility] ([place]) Comment:Testing performed by : [address] [address] Beta-1 globulin 0.5 0.3 - 0.6 g/dL [facility] ([place]) Comment:Testing performed by : [address] [address] Beta-2 globulin 0.2 0.2 - 0.6 g/dL [facility] ([place]) Comment:Testing performed by : [address], [address] Gamma globulin 0.5 0.5 - 1.7 g/dL [facility] ([place]) Comment:Testing performed by : [address], [address] SPEP interp See Cl Path Rpt [facility] ([place]) Comment:Testing performed by : [facility], [address] [place] [address], [place]., [address] Blood specimen (specimen) 01/03/2021 9:19 AM MILLINERY TEACHER 01/03/2021 2:34 PM MILLINERY TEACHER us Francisco Long MD LAB BLOOD ORDERABLES Final Res ult [facility] ([place]) 1 [facility] [place] [address] * Iron profile w/ IBC (01/03/2021 9:19 AM MILLINERY TEACHER) Iron 125 35 - 145 mcg/dL [facility] ([place]) TIBC 366 250 - 400 mcg/dL [facility] ([place]) Transferrin saturation 34 20 - 50 % [facility] ([place]) Blood specimen (specimen) 01/03/2021 9:19 AM MILLINERY TEACHER 01/03/2021 10:17 AM MILLINERY TEACHER us Francisco Long MD LAB BLOOD ORDERABLES Final Res ult Performing Organization Address City/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 12/29/2020 12/29/2020 01/12/2021 3:0 6 AM MILLINERY TEACHER documented as of this encounter Care Teams Chief Nursing Officer Relationship Specialty Start Date End Date Francisco Long MD PCP - General 02/23/17 05/15/22 Neil Ag MD PhD [address] [place] [address] Radiation Oncologist Radiation Oncology 12/17/18 [place] [address] [facility] [address] [place] [address] Referring Physician General Surgery 12/17/18 [place] [address] [facility] [address] [place] [address] Medical Oncologist/Gift Wrapper Medical Oncology 12/17/18 [place] [address] [facility] [address] [place] [address] Consulting Physician Gastroenterology 01/07/20 documented as of this encounter
--- OUTSIDE RECORDS SUMMARY | 2024-11-16 13:00 | XMS_ITS | Encounter Summary ---
Author Organization [facility] Healthcare Address [address] [place] [address] Care Team Providers Care Twisthand Name Role Phone Francisco Long MD Primary Care Provider Neil Ag MD PhD Unavailable [phone] Ita estrada MD Unavailable Caron Mohan MD Unavailable Pebbles Felton MD Unavailable [phone] Encounter Details Date Type Department Care Team (Latest Contact Info) Description 01/05/2021 11:02 AM DANCE COACH - 01/05/2021 2:18 PM [facility] Hospital Encounter [facility] Digestive [facility] [address] [place] [address] Pebbles Felton MD [address] [place] [id number] Acute upper GI bleed Discharge Disposition: Discharge to home or self [...] on file 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 DANCE COACH Gender Identity Not on file Sexual Orientation Not on file documented as of this encounter Last Filed Vital Signs Vital Sign Reading Time Taken Comments Blood Pressure 121/80 01/05/2021 1:25 PM DANCE COACH Pulse 65 01/05/2021 1:25 PM DANCE COACH Temperature 36.8 ??C (98.2 ??F) 01/05/2021 11:[address] Respiratory Rate 20 01/05/2021 1:25 PM DANCE COACH Oxygen Saturation 100% 01/05/2021 1:25 PM DANCE COACH Inhaled Oxygen Concentration - - Weight 85.3 kg (188 lb) 01/05/2021 11:31 AM DANCE COACH Height 170.2 cm (5' 7 ) 01/05/2021 11:31 AM DANCE COACH Body Mass Index 29.44 01/05/2021 11:31 AM DANCE COACH documented in this encounter Discharge Diagnoses Diagnosis Iron deficiency anemia, unspecified - IRON DEFICIENCY ANEMIA, UNSPECIFIED Diaphragmatic hernia without obstruction or gangrene - DIAPHRAGMATIC HERNIA WITHOUT OBSTRUCTION OR GANGRENE Diaphragmatic hernia without mention of obstruction or gangrene Essential (primary) hypertension - ESSENTIAL (PRIMARY) HYPERTENSION Unspecified essential hypertension Hyperlipidemia, unspecified - HYPERLIPIDEMIA, UNSPECIFIED Rheumatoid arthritis, unspecified (HCC) - RHEUMATOID ARTHRITIS, UNSPECIFIED Gastro-esophageal reflux disease without esophagitis - GASTRO-ESOPHAGEAL REFLUX DISEASE WITHOUT ESOPHAGITIS 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 (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) drug therapy - OTHER NETWORKS COMPUTER CONSULTANT (CURRENT) DRUG THERAPY multimedia services coordinator (current) use of anticoagulants - NETWORKS COMPUTER CONSULTANT (CURRENT) USE OF ANTICOAGULANTS Long-term (current) use of anticoagulants Personal history of malignant neoplasm of breast - PERSONAL HISTORY OF MALIGNANT NEOPLASM OF BREAST Personal history of malignant neoplasm of other parts of uterus - PERSONAL HISTORY OF MALIGNANT NEOPLASM OF OTHER PARTS OF UTERUS documented in this encounter Medications at Time [...] or self care documented in this encounter H&P Notes * Pebbles Felton MD - 01/05/2021 12:51 PM CST History and Physical Date of visit: 01/05/2021 Subjective: Patient is a 75 y.o. female presented for evaluation for iron deficiency anemia. Rule out upper GI bleed. Past Medical History: Diagnosis Date ??? Anemia [...] extraction ??? COLONOSCOPY 12/2019 ??? HYSTERECTOMY 06/2018 Medications Prior to Admission Medication Sig Dispense Refill Last Dose ??? carvediloL (COREG) 6.25 mg tablet TAKE ONE TABLET BY MOUTH TWICE DAILY WITH MEALS 180 tablet 3 01/05/2021 at Unknown time ??? cholecalciferol (Vitamin D3) 400 unit capsule 1,000 Units Past Week ??? famotidine (PEPCID) 40 mg tablet Take 1 tablet (40 mg total) by mouth daily 90 tablet 3 01/04/2021 ??? ferrous sulfate 325 mg (65 mg of elemental iron) tablet Take 1 tablet (325 mg total) by mouth daily with breakfast 30 tablet 11 Past Week ??? letrozole (FEMARA) 2.5 mg tablet Take 2.5 mg by mouth daily 01/04/2021 ??? losartan (COZAAR) 100 mg tablet TAKE 1 TABLET BY MOUTH EVERY DAY 90 tablet 3 01/05/2021 at Unknown time ??? methotrexate 2.5 mg tablet Take 2.5 mg by mouth every 7 days Takes 6 tablets every Sunday Past Week ??? pantoprazole DR (PROTONIX) 40 mg EC tablet Take 1 tablet (40 mg total) by mouth daily 30 [id number] 01/05/2021 at Unknown time ??? rosuvastatin (CRESTOR) 5 mg tablet Take 1 tablet (5 mg total) by mouth daily 30 tablet 11 01/04/2021 ??? apixaban (ELIQUIS) 5 mg tablet Take 1 tablet (5 mg total) by mouth 2 (two) times a day (Patientnot taking: Reported on 01/03/2021) 180 tablet 3 Allergies Allergen Reactions ??? Atorvastatin Muscle pain ??? Codeine Nausea only Reaction: Nausea, Social History Tobacco Use ??? Smoking status: Never Smoker ??? Smokeless tobacco: Never Used Substance Use Topics ??? Alcohol use: No Family History Problem Relation Age of Onset ??? Heart attack Father Myocardial infarction; ??? Diabetes Father Diabetes mellitus; ??? Heart disease Father Heart disease; ??? Diabetes type II Other Family history of Diabetes -Type 2; ??? Diabetes Mother Diabetes mellitus; ??? Other Father's Sister mastectomy. ??CA; Physical Exam: Patient is awake and answers well. Eyes: no jaundice. Lungs: CTA anteriorly. ENT: no mouth ulcers. Abdomen: soft, no distention, no tenderness, bowel sounds positive. Extremities: no edema. Skin: no rash. GI IMPRESSION: 1. Iron deficiency GI PLAN/RECOMMENDATIONS: 1. EGD Pebbles Felton MD E COACH documented in this encounter Procedure Notes * Pebbles Felton MD - 01/05/2021 12:36 PM CSTAssociated Order(s): EGD [facility] Patient Name: Jolene Cedillo Procedure Date: 01/05/2021 12:36 PM Date of : 1945 Admit Type: Outpatient Age: 75 Gender: Female Attending MD: Pebbles Felton M.D. Room: [facility] ENDOSCOPY ROOM 1 Note Status: Finalized Patient Profile: This is a 75 year old female. Patient with chronic iron deficiency anemia with recent decline. EGD for evaluation to rule out upper GI source of bleeding. Procedure: Upper GI endoscopy Indications: Iron deficiency anemia Referring MD: Francisco Long M.D. Providers: Pebbles Felton M.D. Impression: - Normal examined duodenum. Biopsied. - [...] surgical repair of the large hiatal hernia. Medicines: Monitored Anesthesia Care Complications: No immediate complications. Estimated Blood Loss: Estimated blood loss: none. Procedure: Pre-Anesthesia Assessment: - Prior to the procedure, a History and Physical was performed, and patient medications and allergies were reviewed. The patient's tolerance of previous anesthesia was also reviewed. The risks and benefits of the procedure and the sedation options and risks were discussed with the patient. All questions were answered, and informed consent was obtained. Prior Anticoagulants: The patient has taken Eliquis (apixaban), last dose was 4 days prior to procedure. ASA Grade Assessment: II - A patient with mild systemic disease. After reviewing the risks and benefits, the patient was deemed in satisfactory condition to undergo the procedure. The benefits, risks, and alternatives to the procedure and sedation were discussed and informed consent was obtained. The scope was passed under direct vision. The Endoscope GIF-H190 [id number] was introduced through the mouth, and advanced to the second part of duodenum. The upper GI endoscopy was accomplished without difficulty. The patient tolerated the procedure well. Findings: The examined duodenum was normal. Biopsies were taken with a cold forceps for histology to rule out celiac disease. No blood noted in the upper GI system. Diffuse mildly erythematous mucosa without bleeding was found in the prepyloric region of the stomach likely nonspecific. Biopsies were taken with a cold forceps for Helicobacter pylori testing using CLOtest. The gastric body was unremarkable normal A large hiatal hernia was present below the GE junction. The gastroesophageal junction was normal at 35 cm from the mouth opening. The examined esophagus but was normal. Electronically signed by Pebbles Felton M.D. Pebbles Felton M.D. 01/05/2021 12:58:14 PM Number of Addenda: 0 Note Initiated On: 01/05/2021 12:36 PM Procedure Code(s): --- Professional --- 33893, Esophagogastroduodenoscopy, flexible, transoral; with biopsy, single or multiple Diagnosis Code(s): --- Professional --- K31.89, Other diseases of stomach and duodenum K44.9, Diaphragmatic hernia without obstruction or gangrene D50.9, Iron deficiency anemia, unspecified CPT copyright 2019 [employer]. All rights reserved. The codes documented in this report are preliminary and upon hydrogenation operator review may be revised to meet current compliance requirements. Recognized by the [employer] for promoting quality in endoscopy E COACH documented in this encounter Miscellaneous Notes * Perioperative Nursing Note - Zulema Patel RN - 01/05/2021 1:[address] Felton in to discuss test results with patient and family. Patient to contact him if they decide to have surgery to fix hernia. Patient to be scheduled to for capsule endoscopy. E COACH documented in this encounter Plan of Treatment Not on file documented as of this encounter Procedures Procedure Name Priority Date/Time Associated Diagnosis Comments SURGICAL PATHOLOGY STAT 01/05/2021 3:40 PM DANCE COACH Acute upper GI bleed H. PYLORI UREASE SCREEN (RADHA TEST) STAT 01/05/2021 12:45 PM DANCE COACH EGD 01/05/2021 12:36 PM DANCE COACH ESOPHAGOGASTRODUODENOSCOPY BIOPSY 01/05/2021 12:35 PM DANCE COACH Acute upper GI bleed documented in this encounter Results * Surgical pathology (01/05/2021 3:40 PM DANCE COACH) Tissue (Small bowel, biopsy) 01/05/2021 12:50 PM DANCE COACH Narrative PATHOLOGY [facility] ([facility]) - 01/07/2021 9:43 AM DANCE COACH [facility] results best viewed via link to PDF [facility] Department of Pathology [address] [place] [address] Final Report Patient Name: ??EKTAMARIANOJOLENEKaran Address: ??[address] [place] [address], ??[place], [place] ??[address] Gender: ??F : ??1945 (Age: 75) Service: ??Gastro Location: ??[facility] Hospital #: ??[id number] Patient Type: ??[facility] Accession # ?[id number] Taken: ??01/05/2021 Received: ??01/05/2021 Accessioned: ??01/05/2021 Reported: ??01/07/2021 Physician(s):Dr. Pebbles Felton M.D. Diagnosis: Duodenum, biopsy: ? - No significant histopathologic alteration. Caesar Sheehan M.D. Report Electronically Reviewed and Signed Out By ??Caesar Sheehan M.D. ??01/07/2021 09:43:01 Specimen(s) Received: A: Small intestine biopsies Microscopic Description: Sections show fragments of benign duodenal mucosa characterized by long slender villi with no significant villous blunting seen. ??There is no increase in intraepithelial lymphocytes. ??No significant acute inflammatory infiltrate is seen. ??No chronic architectural changes are seen. ??No organisms are identified. ??Nicole's glands are present. ??There is no evidence of dysplasia or malignancy. Clinical History: Acute upper GI bleed. ??EGD. ?? Gross Description: The specimen is submitted in a single container labeled Jolene Cedillo and small intestine . ??It is four ferguson tissue fragments measuring 2 mm. ??All in one cassette. ??Blanca Fajardo M.D./Gilles Noonan REPORT IMAGES AND SCANNED DOCUMENTS, IF INCLUDED, ONLY VIEWABLE IN PDF VERSION OF REPORT The performance characteristics of some immunohistochemical stains, fluorescence in-situ hybridization tests and immunophenotyping by flow cytometry cited in this report (if any) were determined by the Surgical Pathology Department at [facility] as part of an ongoing quality project manager program and in compliance with federally mandated [...] characteristics determined by the Surgical Pathology Department [facility]. ??It has not been cleared or approved by the U. S. Food and Drug Administration. Pebbles Felton MD LAB PATHOLOGY ORDERABLES F inal Result Performing Organization Address City/[facility]/ZIP Co de Phone Number PATHOLOGY [facility] ([facility]) [address] [place] [address] * H. pylori urease screen (RADHA test) Tissue (01/05/2021 12:45 PM DANCE COACH) H. pylori, rapid (RADHA) Negative Negative CERNER WILLIAM ([place]) Tissue 01/05/2021 12:4 5 PM DANCE COACH 01/05/2021 3:50 PM DANCE COACH Pebbles Felton MD LAB MICROBIOLOGY - GENERAL ORDERABLES Final Result Performing Organization Address [facility]/ZIP Co de Phone Number MEHRAN THOMAS ([place]) [address] [place] [address] Department [place] [address] * EGD (01/05/2021 12:36 PM DANCE COACH) Anatomical Region Laterality Modality Other Narrative Procedure Note Pebbles Felton MD - 01/05/2021 12:36 PM CST [facility] Patient Name: Jolene Cedillo Procedure Date: 01/05/2021 12:36 PM Date of : 1945 Admit Type: Outpatient Age: 75 Gender: Female Attending MD: Pebbles Felton M.D. Room: [facility] END[facility]COPY ROOM 1 Note Status: Finalized Patient Profile: This is a 75 year old female. Patient with chronic iron deficiency anemia with recent decline. EGD for evaluation to rule out upper GI source ofbleeding. Procedure: Upper GI endoscopy Indications: Iron deficiency anemia Referring MD: Francisco Long M.D. Providers: Pebbles Felton M.D. Impression: - Normal examined duodenum. Biopsied. - Erythematous mucosa in the prepyloric region ofthe stomach. Biopsied. - Large hiatal hernia. Recommendation: - Await pathology results. - Continue present medications. - No source of upper GI bleeding noted. Anemiacould be secondary to methotrexate versus small-bowelslow bleeding or very likely secondary to the largehiatal hernia which has been associated with irondeficiency anemia. Will schedule video capsule endoscopy. Depending on the patient comorbid conditions 1 May consider surgical repair of the large hiatalhernia. Medicines: Monitored Anesthesia Care Complications: No immediate complications. Estimated Blood Loss: Estimated blood loss: none. Procedure: Pre-Anesthesia Assessment: - Prior to the procedure, a History and Physicalwas performed, and patient medications and allergieswere reviewed. The patient's tolerance of previous anesthesia was also reviewed. The risks andbenefits of the procedure and the sedation options and risks were discussed with the patient. All questions were answered, and informed consent was obtained. Prior Anticoagulants: The patient has taken Eliquis (apixaban), last dose was 4 days prior toprocedure. ASA Grade Assessment: II - A patient with mild systemic disease. After reviewing the risks and benefits, the patient was deemed in satisfactory condition to undergo the procedure. The benefits, risks, and alternatives to theprocedure and sedation were discussed and informed consentwas obtained. The scope was passed under direct vision. The Endoscope GIF-H190 [id number] was introduced through the mouth, and advanced to the second partof duodenum. The upper GI endoscopy was accomplished without difficulty. The patient tolerated the procedure well. Findings: The examined duodenum was normal. Biopsies were taken with a cold forceps for histology to rule out celiac disease. No blood noted inthe upper GI system. Diffuse mildly erythematous mucosa without bleeding was found in the prepyloric region of the stomach likely nonspecific. Biopsies weretaken with a cold forceps for Helicobacter pylori testing using CLOtest.The gastric body was unremarkable normal A large hiatal hernia was present below the GE junction. The gastroesophageal junction was normal at 35 cm from the mouthopening. The examined esophagus but was normal. Electronically signed by Pebbles Felton M.D. Pebbles Felton M.D. 01/05/2021 12:58:14 PM Number of Addenda: 0 Note Initiated On: 01/05/2021 12:36 PM Procedure Code(s): --- Professional --- 24196, Esophagogastroduodenoscopy, flexible, transoral; with biopsy, single or multiple Diagnosis Code(s): --- Professional --- K31.89, Other diseases of stomach and duodenum K44.9, Diaphragmatic hernia without obstruction or gangrene D50.9, Iron deficiency anemia, unspecified CPT copyright 2019 [employer]. All rights reserved. The codes documented in this report are preliminary and upon hydrogenation operator reviewmay be revised to meet current compliance requirements. Recognized by the [employer] for promoting quality in endoscopy Pebbles Felton MD ENDOSCOPY PROCEDURES Final Result documented in this encounter Visit Diagnoses Diagnosis Acute upper GI bleed- Primary Unspecified, hemorrhage of gastrointestinal tract documented in this encounter Admitting Diagnoses Diagnosis Acute upper GI bleed Unspecified, hemorrhage of gastrointestinal tract documented in this encounter Administered Medications Inactive Administered Medications - up to 3 most recent administrations Medication Order MAR Action Action Date Dose Rate Site ondansetron (ZOFRAN) injection 4 mg 4 mg, intravenous, Administer over 2 Minutes, Every 30 min PRN, nausea, vomiting, Starting on Sun01/05/21 at 1125, For 2 doses, Recovery (GI), Indications: Nausea and VomitingIndications:Nausea and Vomiting sodium chloride 0.9% flush 0.5-20 mL 0.5-20 mL, intra-catheter, Every 8 hours scheduled, First dose on Sun01/05/21 at 1400, Pre-Procedure (GI), Flush volume based on line type and size. sodium chloride 0.9% flush 0.5-20 mL 0.5-20 mL, intra-catheter, As needed, line care, Starting on Sun01/05/21 at 1126, Pre-Procedure (GI), Flush volume based on line type and size. Flush before and after each use. sodium chloride 0.9% infusion 30 mL/hr, intravenous, Continuous, Starting on Sun01/05/21 at 1200, Pre-Procedure (GI) New Bag 01/05/2021 12:09 PM DANCE COACH 30 mL/hr 30 mL/hr sodium chloride 0.9% infusion 125 mL/hr, intravenous, Continuous, Starting on Sun01/05/21 at 1200, Recovery (GI) New Bag 01/05/2021 12:40 PM DANCE COACH documented in this encounter Active and Recently Administered Medications Times are shown in DANCE COACH. Scheduled Medication Order 01/03/2021 01/04/2021 01/05/2021 sodium chloride 0.9% flush 0.5-20 mL 0.5-20 mL, intra-catheter, Every 8 hours scheduled, First dose on Sun01/05/21 at 1400, Pre-Procedure (GI), Flush volume based on line type and size. 1400 (Due) Continuous Medication Order 01/03/2021 01/04/2021 01/05/2021 sodium chloride 0.9% infusion 30 mL/hr, intravenous, Continuous, Starting on Sun01/05/21 at 1200, Pre-Procedure (GI) 1209 (New Bag - Prov ider: Bruno Saldivar RN) sodium chloride 0.9% infusion 125 mL/hr, intravenous, Continuous, Starting on Sun01/05/21 at 1200, Recovery (GI) 1240 (New Bag - Prov ider: Teresita Roger MD) PRN Medication Order 01/03/2021 01/04/2021 01/05/2021 ondansetron (ZOFRAN) injection 4 mg 4 mg, intravenous, Administer over 2 Minutes, Every 30 min PRN, nausea, vomiting, Starting on Sun01/05/21 at 1125, For 2 doses, Recovery (GI), Indications: Nausea and Vomiting sodium chloride 0.9% flush 0.5-20 mL 0.5-20 mL, intra-catheter, As needed, line care, Starting on Sun01/05/21 at 1126, Pre-Procedure (GI), Flush volume based on line type and size. Flush before and after each use. documented in this encounter Orders Medications Ordered That Álvaro ht Not Have Been Administered Count Last Ordered Date First Ordered Date ondansetron (ZOFRAN) injection 4 mg 1 01/05 sodium chloride 0.9% flush 0.5-20 mL 2 12/27 sodium chloride 0.9% infusion 1 01/05/2021 documented in this encounter Additional Health Concerns Infection Onset Date Last Indicated Resolved Time Respiratory Infection (TITI), contact + droplet Comment:Automatically added due to negative COVID-19 result. 12/29/2020 12/29/2020 01/12/2021 3:0 6 AM DANCE COACH documented as of this encounter Care Teams Twisthand Relationship Specialty Start Date End Date Francisco Long MD PCP - General 02/23/17 05/15/22 Neil Ag MD PhD [address] [place] [address] Radiation Oncologist Radiation Oncology 12/17/18 [place] [id number] [facility] [address] [place], [place] [id number] Referring Physician General Surgery 12/17/18 [place] [id number] [facility] [address] [facility] [place] [id number] Medical Oncologist/Rail Car Driver Medical Oncology 12/17/18 [place] [id number] [facility] [address] [place] [address] Consulting Physician Gastroenterology 01/07/20 documented as of this encounter
--- OUTSIDE RECORDS SUMMARY | 2024-11-16 13:00 | XMS_ITS | Encounter Summary ---
Author Organization [facility] Healthcare Address [address] [place] [address] Care Team Providers Care Valet Runner Name Role Phone Francisco Long MD Primary Care Provider Neil Ag MD PhD Unavailable Ita Vazquez MD Unavailable Caron Mohan MD Unavailable Pebbles Felton MD Unavailable [phone] Encounter Details Date Type Department Care Team (Latest Contact Info) Description 01/05/2021 12:30 PM CLINICAL DATA PROGRAMMER - 01/05/2021 12:55 PM CLINICAL DATA PROGRAMMER Surgery [facility] [address] [place] [address] Pebbles Felton MD [address] [place] [address] ESOPHAGOGASTRODUODENOSCOPY BIOPSY Surgery Details Date/Time Status Location OR Service Patient Class Case Class Case Type Trauma Case? 01/05/2021 12:30 PM Posted [facility] ENDOSCOPY GI 01 Gastroenterology Outpatient Elective Panel 1 Procedure LRB Anes Op Region Wound Class Comments ESOPHAGOGASTRODUODENOSCOPY BIOPSY N/A Monitor Anesthesia Care Surgeon Surgeon Role Service Panel Pebbles Felton MD Primary Gastroenterology 1 documented in this encounter Social History Tobacco [...] on file 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 DATA PROGRAMMER Gender Identity Not on file Sexual Orientation Not on file documented as of this encounter Last Filed Vital Signs Vital Sign Reading Time Taken Comments Blood Pressure 161/88 01/05/2021 11:31 AM CLINICAL DATA PROGRAMMER Pulse 75 01/05/2021 11:31 AM CLINICAL DATA PROGRAMMER Temperature 36.8 ??C (98.2 ??F) 01/05/2021 11:[address] Respiratory Rate 24 01/05/2021 11:31 AM CLINICAL DATA PROGRAMMER Oxygen Saturation 98% 01/05/2021 11:31 AM CLINICAL DATA PROGRAMMER Inhaled Oxygen Concentration - - Weight 85.3 kg (188 lb) 01/05/2021 11:31 AM CLINICAL DATA PROGRAMMER Height 170.2 cm (5' 7 ) 01/05/2021 11:31 AM CLINICAL DATA PROGRAMMER Body Mass Index 29.44 01/05/2021 11:31 AM CLINICAL DATA PROGRAMMER documented in this encounter Medications at Time [...] times a day 180 tablet 3 12/09/2019 04/14/202 1 carvediloL (COREG) 6.25 mg tablet TAKE [...] (40 mg total) by mouth daily 30 [id number] 01/05/2021 at Unknown time ??? rosuvastatin (CRESTOR) [...] GI PLAN/RECOMMENDATIONS: 1. EGD Pebbles Felton MD ICAL DATA PROGRAMMER documented in this encounter Procedure Notes * Pebbles Felton MD - 01/05/2021 12:36 PM CSTAssociated Order(s): EGD [facility] Patient Name: Jolene Gordon Procedure Date: 01/05/2021 12:36 PM Date of : 1945 Admit Type: Outpatient Age: 75 Gender: Female Attending MD: Pebbles Felton M.D. Room: [facility] ENDOSCOPY ROOM 1 Note Status: Finalized Patient [...] passed under direct vision. The Endoscope [id number]-[id number] was introduced through the mouth, and advanced [...] 12:36 PM Procedure Code(s): --- Professional --- 48975, Esophagogastroduodenoscopy, flexible, transoral; with biopsy, single or multiple Diagnosis Code(s): --- Professional --- K31.89, Other diseases of stomach and duodenum K44.9, Diaphragmatic hernia without obstruction or gangrene D50.9, Iron deficiency anemia, unspecified CPT copyright 2019 [employer]. All rights reserved. The codes documented in this report are preliminary and upon shoe turner review may be revised to meet current compliance requirements. Recognized by the [employer] for promoting quality in endoscopy ICAL DATA PROGRAMMER documented in this encounter Miscellaneous Notes * Perioperative Nursing Note - Zulema Patel RN - 01/05/2021 1:[address] Felton in to discuss test results with patient and family. Patient to contact him if they decide to have surgery to fix hernia. Patient to be scheduled to for capsule endoscopy. ICAL DATA PROGRAMMER documented in this encounter Plan of Treatment Not on file documented as of this encounter Procedures Procedure Name Priority Date/Time Associated Diagnosis Comments SURGICAL PATHOLOGY STAT 01/05/2021 3:40 PM CLINICAL DATA PROGRAMMER Acute upper GI bleed H. PYLORI UREASE SCREEN (RADHA TEST) STAT 01/05/2021 12:45 PM CLINICAL DATA PROGRAMMER EGD 01/05/2021 12:36 PM CLINICAL DATA PROGRAMMER ESOPHAGOGASTRODUODENOSCOPY BIOPSY 01/05/2021 12:35 PM CLINICAL DATA PROGRAMMER Acute upper GI bleed documented in this encounter Results * Surgical pathology (01/05/2021 3:40 PM CLINICAL DATA PROGRAMMER) Tissue (Small bowel, biopsy) 01/05/2021 12:50 PM CLINICAL DATA PROGRAMMER Narrative PATHOLOGY [facility] ([facility]) - 01/07/2021 9:43 AM CLINICAL DATA PROGRAMMER [facility] results best viewed via link to PDF [facility] Department of Pathology [address] [place] [address] Final Report Patient Name: ??JOLENE GORDON Address: ??[address] [place] [address], ??[place], [place] ??[address] Gender: ??F : ??1945 (Age: 75) Service: ??Gastro Location: ??[facility] #: ??[id number] Patient Type: ??[facility] SDS Accession # ?[id number] Taken: ??01/05/2021 Received: ??01/05/2021 Accessioned: ??01/05/2021 Reported: [...] submitted in a single container labeled Jolene Gordon and small intestine . ??It is four ferguson tissue fragments measuring 2 mm. ??All in one cassette. ??Blanca Fajardo M.D./Nicolle Patel, P.A. REPORT IMAGES AND SCANNED DOCUMENTS, IF INCLUDED, ONLY VIEWABLE IN PDF VERSION OF REPORT The performance characteristics of some immunohistochemical stains, fluorescence in-situ hybridization tests and immunophenotyping by flow cytometry cited in this report (if any) were determined by the Surgical Pathology Department at [facility] as part of an ongoing supervisor vendor quality program and in compliance with federally mandated [...] characteristics determined by the Surgical Pathology Department [facility]. ??It has not been cleared or approved by the U. S. Food and Drug Administration. Pebbles Felton MD LAB PATHOLOGY ORDERABLES F inal Result Performing Organization Address City/[facility]/ZIP Co de Phone Number PATHOLOGY [facility] ([facility]) [address] [place] [address] * H. pylori urease screen (RADHA test) Tissue (01/05/2021 12:45 PM CLINICAL DATA PROGRAMMER) H. pylori, rapid (RADHA) Negative Negative [facility] ([facility]) Tissue 01/05/2021 12:4 5 PM CLINICAL DATA PROGRAMMER 01/05/2021 3:50 PM CLINICAL DATA PROGRAMMER Pebbles Felton MD LAB MICROBIOLOGY - GENERAL ORDERABLES Final Result Performing Organization Address [facility]/ZIP Co de Phone Number [facility] ([facility]) 1 [facility] Department [place] [address] * EGD (01/05/2021 12:36 PM CLINICAL DATA PROGRAMMER) Anatomical Region Laterality Modality Other Narrative Procedure Note Pebbles Felton MD - 01/05/2021 12:36 PM CST [facility]estive [facility] Patient Name: Jolene Gordon Procedure Date: 01/05/2021 12:36 PM Date of : 1945 Admit Type: Outpatient Age: 75 Gender: Female Attending MD: Pebbles Felton M.D. Room: [facility] END[facility] 1 Note Status: Finalized Patient [...] passed under direct vision. The Endoscope [id number]-[id number] was introduced through the mouth, and advanced [...] 12:36 PM Procedure Code(s): --- Professional --- 19351, Esophagogastroduodenoscopy, flexible, transoral; with biopsy, single or multiple Diagnosis Code(s): --- Professional --- K31.89, Other diseases of stomach and duodenum K44.9, Diaphragmatic hernia without obstruction or gangrene D50.9, Iron deficiency anemia, unspecified CPT copyright 2019 [employer]. All rights reserved. The codes documented in this report are preliminary and upon shoe turner reviewmay be revised to meet current compliance requirements. Recognized by the [employer] for promoting quality in endoscopy Pebbles Felton MD ENDOSCOPY PROCEDURES Final Result documented in this encounter Visit Diagnoses Diagnosis Acute upper GI bleed- Primary Unspecified, hemorrhage of gastrointestinal tract Acute upper GI bleed Unspecified, hemorrhage of [...] Pre-Procedure (GI) New Bag 01/05/2021 12:09 PM CLINICAL DATA PROGRAMMER 30 mL/hr 30 mL/hr sodium chloride 0.9% infusion 125 mL/hr, intravenous, Continuous, Starting on Sun01/05/21 at 1200, Recovery (GI) New Bag 01/05/2021 12:40 PM CLINICAL DATA PROGRAMMER documented in this encounter Active and Recently Administered Medications Times are shown in CLINICAL DATA PROGRAMMER. Scheduled Medication Order 01/03/2021 01/04/2021 01/05/2021 sodium [...] result. 12/29/2020 12/29/2020 01/12/2021 3:0 6 AM CLINICAL DATA PROGRAMMER documented as of this encounter Care Teams Valet Runner Relationship Specialty Start Date End Date Francisco Long MD PCP - General 02/23/17 05/15/22 Neil Ag MD PhD [address] [place] [address] Radiation Oncologist Radiation Oncology 12/17/18 [place] [address] [address] [facility] [address] [place] [id number] Referring Physician General Surgery 12/17/18 [place] [address] [address] [facility] [address] [place] [id number] Medical Oncologist/Forensic Medical Examiner Medical Oncology 12/17/18 [place] [address] [address] [facility] [address] [place] [address] Consulting Physician Gastroenterology 01/07/20 documented as of this encounter
--- OUTSIDE RECORDS SUMMARY | 2024-11-16 13:01 | XMS_ITS | Encounter Summary ---
Author Organization [facility] Address [address] [facility] [address] [place] [address] Care Team Providers Care Chiller Hand Name Role Phone Francisco Long MD Primary Care Provider Neil Ag MD PhD Unavailable [phone] Ita Vazquez MD Unavailable Caron Mohan MD Unavailable Pebbles Felton MD Unavailable [phone] Encounter Details Date Type Department Care Team (Late st Contact Info) Description 12/28/2020 Telephone [facility] [address] [facility] [address] [place] [address] Francisco Long MD [address] [place] [address] [address] [place] [address] Social History Tobacco Use Types Packs/Day Years Used Date Smoking Tobacco: Never Smokeless Tobacco: Never Alcohol Use Standard Drinks/Week Comments No 0 (1 standard drink = 0.6 oz pur e alcohol) Overall Financial Resource Strain (CARDIA) Answe r Date Recorded Difficulty of Paying Living Expenses Not hard at all 12/05/2019 PHQ-2 Answer Date Recorded PHQ-2 Score 0 11/01/2020 Hunger Vital Sign Answer Date Recorded Worried [...] on file 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 LEGAL ENTITY CONTROLLER Gender Identity Not on file Sexual Orientation Not on file documented as of this encounter Miscellaneous Notes * Telephone Encounter - Janna Gonsales - 12/31/2020 3:55 PM CST Noted. L ENTITY CONTROLLER documented in this encounter Plan of Treatment Not on file documented as of this encounter Visit Diagnoses Not on filedocumented in this encounter Additional Health Concerns Infection Onset Date Last Indicated Resolved Time COVID: Suspected 12/28/2020 12/28/2020 12/29/2020 7:21 AM LEGAL ENTITY CONTROLLER Respiratory Infection (TITI), contact + droplet Comment:Automatically added due to negative COVID-19 result. 12/29/2020 12/29/2020 01/12/2021 3:0 6 AM LEGAL ENTITY CONTROLLER documented as of this encounter Care Teams Chiller Hand Relationship Specialty Start Date End Date Francisco Long MD PCP - General 02/23/17 05/15/22 Neil Ag MD PhD [address] [place] [address] Radiation Oncologist Radiation Oncology 12/17/18 [place] [address] [address] [place] [address] Referring Physician General Surgery 12/17/18 [place] [address] [address] [place] [address] Medical Oncologist/Suction Drum Drier Operator Medical Oncology 12/17/18 [place] [address] [facility] [address] [place] [address] Consulting Physician Gastroenterology 01/07/20 documented as of this encounter
--- OUTSIDE RECORDS SUMMARY | 2024-11-16 13:01 | XMS_ITS | Encounter Summary ---
Author Organization [facility] Healthcare Address [address] [place] [address] Care Team Providers Care Tool And Die Technician Name Role Phone Francisco Long MD Primary Care Provider [phone] Neil Ag MD PhD Unavailable [phone] Ita estrada MD Unavailable Caron Mohan MD Unavailable Pebbles Felotn MD Unavailable [phone] Encounter Details Date Type Department Care Team (Late st Contact Info) Description 12/28/2020 4:20 PM FRAME RUNNER Lab [address] [id number] Exposure to SARS-associated coronavirus Social History Tobacco Use Types Packs/Day Years [...] on file 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 FRAME RUNNER Gender Identity Not on file Sexual Orientation Not on file documented as of this encounter Plan of Treatment Not on file documented as of this encounter Procedures Procedure Name Priority Date/Time Associated Diagnosis Comments COVID-19 CORONAVIRUS RNA Routine 12/28/2020 1:37 PM FRAME RUNNER Exposure to SARS-associated coronavirus documented in this encounter Results * COVID-19 Coronavirus RNA Nasopharyngeal (12/28/2020 1:37 PM FRAME RUNNER) COVID-19 RNA Not Detected [facility] Comment: Interpretive Data Testing performed at [facility] Infectious [facility]. The 2018-Novel Coronavirus Assay (COVID-19) Real Time RT-PCR assay is for in vitro diagnostic use under FDA emergency use authorization only. A negative RT-PCR result does not preclude infection with COVID-19 and should not be used as the sole basis for treatment or other patient management decisions. Additional sample types have been validated according to CLIA regulations. ?? Current Interpretive Data was last revised on 2020. Testing performed by: [facility], [address] [place] [address]., [address] First COVID-19 test? Unknown [facility] Comment:Testing performed by : [facility], [address] [place] [address], [address] Employeed in healthcare? No [facility] Comment:Testing performed by : [address] [address] status? No [facility] Comment:Testing performed by : [address] [address] Group care resident? No [facility] Comment:Testing performed by : [facility], [address] [place] [address], [address] Hospitalized? No [facility] Comment:Testing performed by : [facility], [address] [place] [address], [address] Is patient in ICU? No [facility] Comment:Testing performed by : [facility], [address] [place]., [address] Symptomatic as defined by CDC? Yes [facility] Comment:Testing performed by : [facility], [address] [place]., [address] Nasopharyngeal 12/28/2020 1: 37 PM FRAME RUNNER 12/28/2020 10:54 PM FRAME RUNNER Narrative [facility] - 12/29/2020 7:20 AM FRAME RUNNER What is the reason for testing?->Symptoms of COVID-19 in high-risk group, without concurrent influenza testing Date of symptom onset->12/21/20 Marianne Mendez COMMANDING OFFICER TRAFFIC DIVISION LAB MICROBIOLOGY - GENERAL ORDERABLES Final Result [facility] [address] Department [place] [address] documented in this encounter Visit Diagnoses Diagnosis Exposure to SARS-associated coronavirus documented in this encounter Additional Health Concerns Infection Onset Date Last Indicated Resolved Time COVID: Suspected 12/28/2020 12/28/2020 12/29/2020 7:21 AM FRAME RUNNER documented as of this encounter Care Teams Tool And Die Technician Relationship Specialty Start Date End Date Francisco Long MD PCP - General 02/23/17 05/15/22 Neil Ag MD PhD [address] [place] [address] Radiation Oncologist Radiation Oncology 12/17/18 [place] [address] [address] [facility] [address] [place], [place] [id number] Referring Physician General Surgery 12/17/18 [place] [address] [address] [facility] [address] [place] [address] Medical Oncologist/Wireless Sales Consultant Medical Oncology 12/17/18 [place] [address] [place] [address] Consulting Physician Gastroenterology 01/07/20 documented as of this encounter
--- OUTSIDE RECORDS SUMMARY | 2024-11-16 13:01 | XMS_ITS | Encounter Summary ---
Author Organization [facility] Healthcare Address [address] [place] [address] Care Team Providers Care Test Worker Name Role Phone Francisco Long MD Primary Care Provider [phone] Neil Ag MD PhD Unavailable [phone] Ita Vazquez MD Unavailable Caron Mohan MD Unavailable Pebbles Felton MD Unavailable [phone] Encounter Details Date Type Department Care Team (Late st Contact Info) Description 12/30/2020 2:45 PM BUFFING WHEEL OPERATOR Lab [facility] 1 [place] [address] Francisco Long MD [address] [place], [place] [id number] Anemia, unspecified type; Dyspnea on exertion Discharge Disposition: Discharge to home or self [...] on file 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 BUFFING WHEEL OPERATOR Gender Identity Not on file Sexual Orientation Not on file documented as of this encounter Discharge Disposition Disposition Code Departure Means Destination Discharge to home or self care documented in this encounter Plan of Treatment Not on file documented as of this encounter Procedures Procedure Name Priority Date/Time Associated Diagnosis Comments IRON PROFILE W/ IBC STAT 12/30/2020 2 :42 PM BUFFING WHEEL OPERATOR Anemia, unspecified type Dyspnea on exertion HEMOGLOBIN STAT 12/30/2020 2:42 PM BUFFING WHEEL OPERATOR Anemia, unspecified type Dyspnea on exertion documented in this encounter Results * (ABNORMAL) Iron profile w/ IBC (12/30/2020 2:42 PM BUFFING WHEEL OPERATOR) Iron 22(L) 35 - 145 mcg/dL [facility] ([facility]) TIBC 399 250 - 400 mcg/dL [facility] ([facility]) Transferrin saturation 6(L) 20 - 50 % [facility] ([facility]) Blood specimen (specimen) 12/30/2020 2:42 PM BUFFING WHEEL OPERATOR 12/30/2020 2:48 PM BUFFING WHEEL OPERATOR Narrative [facility] ([facility]) - 12/30/2020 3:11 PM BUFFING WHEEL OPERATOR STAT today us Francisco Long MD LAB BLOOD ORDERABLES Final Res ult [facility] ([facility]) [address] [facility] Department [place] [address] * (ABNORMAL) Hemoglobin (12/30/2020 2:42 PM BUFFING WHEEL OPERATOR) Hgb 8.6(L) 11.9 - 15.5 g/dL [facility] ([facility]) Blood specimen (specimen) 12/30/2020 2:42 PM BUFFING WHEEL OPERATOR 12/30/2020 2:49 PM BUFFING WHEEL OPERATOR Narrative [facility] ([facility]) - 12/30/2020 2:51 PM BUFFING WHEEL OPERATOR STAT today us Francisco Long MD LAB BLOOD ORDERABLES Final Res ult [facility] ([facility]) 1 [facility] Department [place] [address] documented in this encounter Visit Diagnoses Diagnosis Anemia, unspecified type Dyspnea on exertion Other dyspnea and respiratory abnormality documented in this encounter Additional Health Concerns Infection Onset Date Last Indicated Resolved Time Respiratory Infection (TITI), contact + droplet Comment:Automatically added due to negative COVID-19 result. 12/29/2020 12/29/2020 01/12/2021 3:0 6 AM BUFFING WHEEL OPERATOR documented as of this encounter Care Teams Test Worker Relationship Specialty Start Date End Date Francisco Long MD PCP - General 02/23/17 05/15/22 Neil Ag MD PhD [address] [place] [address] Radiation Oncologist Radiation Oncology 12/17/18 [place] [address] [place], [place] [address] Referring Physician General Surgery 12/17/18 [place] [address] [place], [place] [id number] Medical Oncologist/Oracle Etl Developer Medical Oncology 12/17/18 [place] [address] [place] [address] Consulting Physician Gastroenterology 01/07/20 documented as of this encounter
--- OUTSIDE RECORDS SUMMARY | 2024-11-16 13:01 | XMS_ITS | Encounter Summary ---
Author Organization [facility] Healthcare Address [address] [place] [address] Care Team Providers Care Pc Technician Name Role Phone Francisco Long MD Primary Care Provider Neil Ag MD PhD Unavailable [phone] Ita Vazquez MD Unavailable Caron Mohan MD Unavailable [phone] Pebbles Felton MD Unavailable [phone] Encounter Details Date Type Department Care Team (Late st Contact Info) Description 12/31/2020 6:25 AM SURVEY RODMAN Lab [facility] 1 [place] [address] Francisco Long MD [address] [place], [place] [id number] Anemia, unspecified type; Dyspnea on exertion Discharge [...] on file 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 SURVEY RODMAN Gender Identity Not on file Sexual Orientation Not on file documented as of this encounter Discharge Disposition Disposition Code Departure Means Destination Discharge to home or self care documented in this encounter Miscellaneous Notes * Result Encounter Note - Francisco Long MD - 12/31/2020 8:01 AM CST Let patient know that her hemoglobin is 8.2 seems to be stable follow-up Sunday as planned ER evaluation immediately if any changes see me Sunday 8:00 a.m. have her check a hemoglobin hematocrit Sunday morning 6:00 a.m. at the hospital diagnosis anemia EY RODMAN documented in this encounter Plan of Treatment Not on file documented as of this encounter Procedures Procedure Name Priority Date/Time Associated Diagnosis Comments HEMOGLOBIN AND HEMATOCRIT Routine 12/31/2020 6:23 AM SURVEY RODMAN documented in this encounter Results * (ABNORMAL) Hemoglobin and hematocrit (12/31/2020 6:23 AM SURVEY RODMAN) Hgb 8.2(L) 11.9 - 15.5 g/dL [facility] ([facility]) Hct 27.2(L) 35.6 - 45.5 % [facility] ([facility]) Blood specimen (specimen) 12/31/2020 6:23 AM SURVEY RODMAN 12/31/2020 7:10 AM SURVEY RODMAN us Francisco Long MD LAB BLOOD ORDERABLES Final Res ult [facility] ([facility]) 1 [facility] Department [place] [address] documented in this encounter Visit Diagnoses Diagnosis Anemia, unspecified type Dyspnea on exertion Other dyspnea and respiratory abnormality documented in this encounter Additional Health Concerns Infection Onset Date Last Indicated Resolved Time Respiratory Infection (TITI), contact + droplet Comment:Automatically added due to negative COVID-19 result. 12/29/2020 12/29/2020 01/12/2021 3:0 6 AM SURVEY RODMAN documented as of this encounter Care Teams Pc Technician Relationship Specialty Start Date End Date Francisco Long MD PCP - General 02/23/17 05/15/22 Neil Ag MD PhD [address] [place] [address] Radiation Oncologist Radiation Oncology 12/17/18 [place] [address] [address] Referring Physician General Surgery 12/17/[address] [place] [address] [facility] [address] [place] [address] Medical Oncologist/Sales Ambassador Medical Oncology 12/17/18 [place] [address] [address] Consulting Physician Gastroenterology 01/07/20 documented as of this encounter
--- OUTSIDE RECORDS SUMMARY | 2024-11-16 13:01 | XMS_ITS | Encounter Summary ---
Author Organization [facility] Medical Group Address [address] [place] [address] Care Team Providers Care Medical Scientific Officer Name Role Phone Francisco Long MD Primary Care Provider Neil Ag MD PhD Unavailable [phone] Ita estrada MD Unavailable Caron Mohan MD Unavailable Pebbles Felton MD Unavailable [phone] Encounter Details Date Type Department Care Team (Late st Contact Info) Description 12/29/2020 Telephone [facility] [address] [facility] [address] [place] [address] Marianne Mendez, HARDWOOD SAWYER [address] [place] [address] Social History Tobacco Use Types Packs/Day Years [...] on file 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 WIRE FENCE ERECTOR Gender Identity Not on file Sexual Orientation Not on file documented as of this encounter Miscellaneous Notes * Telephone Encounter - Sofiya Baez MA - 12/29/2020 9:01 AM CST Patient aware and has scheduled an apt with JR tomorrow 12/30/20 FENCE ERECTOR * Telephone Encounter - Sofiya Baez MA - 12/29/2020 9:01 AM CST ----- Message from Marianne Mendez NP sent at 12/29/2020 8:14 AM WIRE FENCE ERECTOR ----- Please let Jyotsna know her COVID swab was negative. Also please have [facility]. Schedule f/u with Dr. Long or I tomorrow or Sunday. FENCE ERECTOR documented in this encounter Plan of Treatment Not on file documented as of this encounter Visit Diagnoses Not on filedocumented in this encounter Additional Health Concerns Infection Onset Date Last Indicated Resolved Time COVID: Suspected 12/28/2020 12/28/2020 12/29/2020 7:21 AM WIRE FENCE ERECTOR Respiratory Infection (TITI), contact + droplet Comment:Automatically added due to negative COVID-19 result. 12/29/2020 12/29/2020 01/12/2021 3:0 6 AM WIRE FENCE ERECTOR documented as of this encounter Care Teams Medical Scientific Officer Relationship Specialty Start Date End Date Francisco Long MD PCP - General 02/23/17 05/15/22 Neil Ag MD PhD [address] [place] [address] Radiation Oncologist Radiation Oncology 12/17/18 [place] [address] [facility] [address] [place], [place] [id number] Referring Physician General Surgery 12/17/18 [place] [address] [facility] [address] [place], [place] [id number] Medical Oncologist/Rod Drawer Medical Oncology 12/17/18 [place] [address] [facility] [address] [place] [address] Consulting Physician Gastroenterology 01/07/20 documented as of this encounter
--- OUTSIDE RECORDS SUMMARY | 2024-11-16 13:01 | XMS_ITS | Encounter Summary ---
Author Organization [facility] Healthcare Address [address] [place] [address] Care Team Providers Care Outside Deliverer Name Role Phone Francisco Long MD Primary Care Provider [phone] Neil Ag MD PhD Unavailable [phone] Ita estrada MD Unavailable Caron Mohan MD Unavailable [phone] Pebbles Felton MD Unavailable [phone] Encounter Details Date Type Department Care Team (Late st Contact Info) Description 12/29/2020 11:25 AM FUSE CUP EXPANDER Lab [address] [address] Dyspnea on exertion Social History Tobacco Use Types Packs/Day Years [...] on file 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 FUSE CUP EXPANDER Gender Identity Not on file Sexual Orientation Not on file documented as of this encounter Plan of Treatment Not on file documented as of this encounter Procedures Procedure Name Priority Date/Time Associated Diagnosis Comments EGFR Routine 12/29/2020 11:20 AM FUSE CUP EXPANDER Dyspnea on exertion DIFFERENTIAL AUTO Routine 12/29/2020 11: 20 AM FUSE CUP EXPANDER Dyspnea on exertion PRO B-TYPE NATRIURETIC PEPTIDE Routine 12/29/2020 11:20 AM FUSE CUP EXPANDER Dyspnea on exertion CBC WITH AUTO DIFFERENTIAL Routine 12/29/2020 11:20 AM FUSE CUP EXPANDER Dyspnea on exertion BASIC METABOLIC PANEL Routine 12/29/2020 11:20 AM FUSE CUP EXPANDER Dyspnea on exertion documented in this encounter Results * eGFR (12/29/2020 11:20 AM FUSE CUP EXPANDER) eGFR 75 mL/min/1.7 3 m2 [facility] THOMAS (G[facility]) Comment: Interpretive Data Reference Interval Normal ?>/= [...] was last reviewed 2020 Blood specimen (specimen) 12/29/2020 11:20 AM FUSE CUP EXPANDER 12/29/2020 12:40 PM FUSE CUP EXPANDER Marianne Mendez CARPENTERS HELPER LAB BLOOD ORDERABLES Final Result [facility] ([facility]) 1 [facility] Department [place] [address] * (ABNORMAL) Differential, auto (12/29/2020 11:20 AM FUSE CUP EXPANDER) Neutrophil abs 5.7 1.7 - 6.5 K/cumm [facility] ([facility]) Imm gran abs 0.0 0.0 - 0.1 K/cumm [facility] ([place]) Lymphocyte abs 0.5(L) 0.8 - 3.3 K/cumm [facility] ([place]) Monocyte abs 0.4 0.2 - 0.8 K/cumm [facility] ([place]) Eosinophil abs 0.2 0.0 - 0.5 K/cumm [facility] ([place]) Basophil abs 0.0 0.0 - 0.1 K/cumm [facility] ([place]) Neutrophil pct 83.3 % [facility] R [facility] ([place]) Comment: Interpretive Data Percent cell count reference ranges are not reported, since discordance with absolute values may lead to misinterpretation of CBC data. Current Interpretive Data was last revised on 2018. Imm gran pct 0.4 % [facility] ([facility]) Comment: Interpretive Data Percent cell count reference ranges are not reported, since discordance with absolute values may lead to misinterpretation of CBC data. Current Interpretive Data was last revised on 2018. Lymphocyte pct 7.1 % [facility] ([facility]) Comment: Interpretive Data Percent cell count reference ranges are not reported, since discordance with absolute values may lead to misinterpretation of CBC data. Current Interpretive Data was last revised on 2018. Monocyte pct 6.3 % [facility] ([facility]) Comment: Interpretive Data Percent cell count reference ranges are not reported, since discordance with absolute values may lead to misinterpretation of CBC data. Current Interpretive Data was last revised on 2018. Eosinophil pct 2.5 % [facility] ([facility]) Comment: Interpretive [...] last revised on 2018. Blood specimen (specimen) 12/29/2020 11:20 AM FUSE CUP EXPANDER 12/29/2020 12:40 PM FUSE CUP EXPANDER Marianne Mendez CARPENTERS HELPER LAB BLOOD ORDERABLES Final Result [facility] ([place]) 1 [facility] Department [place] [address] * (ABNORMAL) CBC with auto differential (12/29/2020 11:20 AM FUSE CUP EXPANDER) WBC 6.8 3.8 - 9.9 K/cumm [facility] ([place]) Hgb 8.3(L) 11.9 - 15.5 g/dL [facility] ([place]) Hct 27.6(L) 35.6 - 45.5 % [facility] ([place]) Plt 236 150 - 400 K/cumm [facility] ([place]) MPV 10.3 9.1 - 12.3 fL [facility] ([place]) RBC 3.13(L) 3.90 - 5.20 M/cumm [facility] ([place]) MCV 88.2 81.3 - 96.4 fL [facility] ([place]) MCH 26.5(L) 27.1 - 33.3 pg [facility] ([place]) MCHC 30.1(L) 32.3 - 35.7 g/dL [facility] ([place]) RDW CV 16.8(H) 11.1 - 14.9 % [facility] ([place]) RDW SD 53.1(H) 35.7 - 48.1 fL [facility] ([place]) NRBC abs 0.00 0.00 - 0.01 K/cumm [facility] ([place]) Blood specimen (specimen) 12/29/2020 11:20 AM FUSE CUP EXPANDER 12/29/2020 12:40 PM FUSE CUP EXPANDER Marianne Mendez NP LAB BLOOD ORDERABLES Final Result [facility] ([place]) 1 [facility] Department [place] [address] * (ABNORMAL) Basic metabolic panel (12/29/2020 11:20 AM FUSE CUP EXPANDER) Sodium 140 135 - 145 mmol/L [facility] ([place]) Potassium, pl 4.5 3.3 - 4.9 mmol/L [facility] ([facility]) Comment:Moderately Hemolyzed Specimen. Hemolysis present. Results may be affected. Chloride 105 97 - 110 mmol/L [facility] ([facility]) CO2 27 22 - 32 mmol/L [facility] ([facility]) Anion gap 8 2 - 15 mmol/L [facility] ([place]) BUN 15 8 - 25 mg/dL [facility] ([place]) Creatinine 0.78 0.60 - 1.10 mg/dL [facility] ([facility]) Glucose 204(H) 70 - 199 mg/dL [facility] ([place]) [...] interpretive data was last revised 2017. Calcium 8.3(L) 8.5 - 10.3 mg/dL [facility] ([facility]) Blood specimen (specimen) 12/29/2020 11:20 AM FUSE CUP EXPANDER 12/29/2020 12:40 PM FUSE CUP EXPANDER us Marianne Mendez CARPENTERS HELPER LAB BLOOD ORDERABLES Final Result [facility] ([place]) 1 [facility] Department [place] [address] * Pro B-type natriuretic peptide (12/29/2020 11:20 AM FUSE CUP EXPANDER) NT-proBNP 200 <=300 pg/mL [facility] THOM[facility] ([place]) Comment: Interpretive Comments: A. Dyspnea in Acute Care Setting All Ages: ?< 300 pg/ml, acute heart failure unlikely. < 50 yrs: ?300 - 450 pg/ml, further investigation warranted. ? > 450 pg/ml, acute heart failure likely. 50 - 74 yrs: ? 300 - 900 pg/ml, further investigation warranted. ? > 900 pg/ml, acute heart failure likely . > or = 75 yrs: ? 450 - 1800 pg/ml, further investigation warranted. ? > 1800 pg/ml, acute heart failure likely. B. Non-acute Setting < 75 yrs ? < 125 pg/ml, rules out heart failure. ? > or = 125 pg/ml, further investigation warranted. > or = 75 yrs ?< 450 pg/ml, rules out heart failure. ? > or = 450 pg/ml, further investigation warranted. - Knowledge of each individual patient's NT-proBNP range may be more useful than using similar cut-points for every patient. Please note that marked elevations in NT-proBNP levels may be observed in state other than Left Ventricular Congestive Failure, including: acute coronary syndromes, right heart strain/failure (including pulmonary embolism and cor pulmonale), critical illness, renal failure, as well as advanced age. - References: 1. Negar JO et.al. Eur Heart J. 2006:27:330-337. 2. Karen Zhang AM. J. AM Nabil Cardiol: Cardiovasc Imag. 2009;2: 216- 225. Interpretive Data Last Revised Date: 2018. Blood specimen (specimen) 12/29/2020 11:20 AM FUSE CUP EXPANDER 12/29/2020 3:30 PM FUSE CUP EXPANDER us Marianne Mendez CARPENTERS HELPER LAB BLOOD ORDERABLES Final Result [facility] ([facility]) 1 [facility] Department [place] [address] documented in this encounter Visit Diagnoses Diagnosis Dyspnea on exertion Other dyspnea and respiratory abnormality documented in this encounter Additional Health Concerns Infection Onset Date Last Indicated Resolved Time Respiratory Infection (TITI), contact + droplet Comment:Automatically added due to negative COVID-19 result. 12/29/2020 12/29/2020 01/12/2021 3:0 6 AM FUSE CUP EXPANDER documented as of this encounter Care Teams Outside Deliverer Relationship Specialty Start Date End Date Francisco Long MD PCP - General 02/23/17 05/15/22 Neil Ag MD PhD [address] [place] [address] Radiation Oncologist Radiation Oncology 12/17/18 [place] [address] [facility] [address] [place] [id number] Referring Physician General Surgery 12/17/18 [place] [address] [facility] [address] [place] [id number] Medical Oncologist/Patrol Officer Medical Oncology 12/17/18 [place] [address] [address] [facility] [address] [place] [address] Consulting Physician Gastroenterology 01/07/20 documented as of this encounter
--- OUTSIDE RECORDS SUMMARY | 2024-11-16 13:01 | XMS_ITS | Encounter Summary ---
Author Organization [facility] Medical Group Address [address] [place] [address] Care Team Providers Care Grip Name Role Phone Francisco Long MD Primary Care Provider [phone] Neil Ag MD PhD Unavailable [phone] Ita estrada MD Unavailable Caron Mohan MD Unavailable Pebbles Felton MD Unavailable [phone] Encounter Details Date Type Department Care Team (Late st Contact Info) Description 12/28/2020 Orders Only [facility] Testing Site - [address] [address] [address] [place] [address] Alhaji Mendez, STOREROOM KEEPER [address] [place] [address] Exposure to SARS-associated coronavirus (Primary Dx) Social History Tobacco Use Types [...] on file 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 TINSMITH APPRENTICE Gender Identity Not on file Sexual Orientation Not on file documented as of this encounter Progress Notes * Chitra Rosenbaum - 12/28/2020 12:11 PM CST Ordering User: Alhaji Mendez NP Auth Provider: ALHAJI MENDEZ Enc Provider: Alhaji Mendez NP Diagnosis: Dyspnea on exertion Rhinorrhea Department: [facility] Aim Sched Instruct: ?? Comment: ?? Order Specific Questions Question Answer Comment Testing types: Symptomatic with high risk condition ?? High risk condition: Age > 65 ?? Date of symptom onset 12/21/2020 ?? Testing site patient will be sent to: [facility] ?? Date testing requested: 12/28/2020 ?? Testing: COVID-RNA ?? Is this the first COVID-19 test for this patient? Does the patient currently work in a healthcare facility with direct patient contact? No ?? Is the patient a resident of a congregate care or living setting? No ?? Is the patient ? No ?? Please select the performing region: [facility] Medical Group MITH APPRENTICE documented in this encounter Plan of Treatment Not on file documented as of this encounter Results * COVID-19 Coronavirus RNA Nasopharyngeal (12/28/2020 1:37 PM TINSMITH APPRENTICE) COVID-19 RNA Not Detected [facility]AN DE JESUS Comment: Interpretive Data Testing performed at [facility]. The 2019-Novel Coronavirus Assay (COVID-19) Real Time RT-PCR assay [...] last revised on 2020. Testing performed by: [facility], [address] [place]., [address] First COVID-19 test? Unknown MEHRAN Comment:Testing performed by : [facility], [address] [place] [address], [address] Employeed in healthcare? No [facility]:Testing performed by : [facility], [address] [place] [address], [address] status? No CERNER Comment:Testing performed by : [facility], [address] [facility], [address] Group care resident? No MEHRAN Comment:Testing performed by : [facility], [address] [place] [address], [address] Hospitalized? No [facility] Comment:Testing performed by : [facility], [address] [facility], [address] Is patient in ICU? No [facility] Comment:Testing performed by : [facility], [address] [place] [address], [address] Symptomatic as defined by CDC? Yes MEHRAN Comment:Testing performed by : [facility], [address] [place] [address], [address] Nasopharyngeal 12/28/2020 1: 37 PM TINSMITH APPRENTICE 12/28/2020 10:54 PM TINSMITH APPRENTICE Narrative BANN[facility]AHE - 12/29/2020 7:20 AM TINSMITH APPRENTICE What is the reason for testing?->Symptoms of COVID-19 in high-risk group, without concurrent influenza testing Date of symptom onset->12/21/20 Alhaji Mendez NP LAB MICROBIOLOGY - GENERAL ORDERABLES Final Result [facility] [address] Department [place] [address] documented in this encounter Visit Diagnoses Diagnosis Exposure to SARS-associated coronavirus- Primary Exposure to SARS-associated coronavirus documented in this encounter Additional Health Concerns Infection Onset Date Last Indicated Resolved Time COVID: Suspected 12/28/2020 12/28/2020 12/29/2020 7:21 AM TINSMITH APPRENTICE documented as of this encounter Care Teams Grip Relationship Specialty Start Date End Date Francisco Long MD PCP - General 02/23/17 05/15/22 Neil Ag MD PhD [address] [place] [address] Radiation Oncologist Radiation Oncology 12/17/18 [place] [address] [facility] [address] [place], [place] [address] Referring Physician General Surgery 12/17/18 [place] [address] [facility] [address] [place], [place] [id number] Medical Oncologist/Renewals Representative Medical Oncology 12/17/18 [place] [address] [facility] [address] [place], [place] [address] Consulting Physician Gastroenterology 01/07/20 documented as of this encounter
--- OUTSIDE RECORDS SUMMARY | 2024-11-16 13:01 | XMS_ITS | Encounter Summary ---
Author Organization [facility] Healthcare Address [address] [place] [address] Care Team Providers Care Professional Sports Scout Name Role Phone Francisco Long MD Primary Care Provider [phone] Neil Ag MD PhD Unavailable [phone] Ita estrada MD Unavailable Caron Mohan MD Unavailable Pebbles Feltno MD Unavailable [phone] Reason for Referral * Diagnostic Imaging (Routine) - Closed Specialty Diagnoses / Procedures Referred By Contac t Referred To Contact Diagnoses Dyspnea on exertion Procedures XR Chest Pa Lateral 2 Vw Alhaji Mendez NP Phone: tel: fax: [address] [address] Referral ID Status Reason Start Date Expiration Date Visits Re quested Visits Authorized [id number] Closed 12/29/2020 01/28/2022 1 1 ENT ANALYST Reason for Visit * Diagnostic Imaging (Routine) - Closed Specialty Diagnoses / Procedures Referred By Contac t Referred To Contact Diagnoses Dyspnea on exertion Procedures XR Chest Pa Lateral 2 Vw Alhaji Mendez NP Phone: tel: fax: [address] [address] Referral ID Status Reason Start Date Expiration Date Visits Re quested Visits Authorized [id number] Closed 12/29/2020 01/28/2022 1 1 Encounter Details Date Type Department Care Team (Latest Contact Info) Description 12/29/2020 11:30 AM PAYMENT ANALYST - 12/29/2020 11:59 PM PAYMENT ANALYST Hospital Encounter [facility] [address] [place] [address] Francisoc Long MD [address] [facility] [address] [place] [address] Alhaji Mendez NP [address] [place] [address] Dyspnea on exertion Discharge Disposition: Discharge to [...] on file 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 PAYMENT ANALYST Gender Identity Not on file Sexual [...] 400 unit capsule 1,000 Units 02 4 ferrous sulfate 325 mg (65 mg of elemental iron) tabletIndication s:Iron Deficiency Anemia Take 1 tablet (325 mg total) by mouth daily with breakfast 30 tablet 11 07/01/2020 1 losartan (COZAAR) 100 mg tablet TAKE 1 TABLET BY MOUTH EVERY DAY 90 tablet 3 09/24/2020 1 rosuvastatin (CRESTOR) 5 mg tablet Take 1 tablet (5 mg total) by mouth daily 30 tablet 11 07/01/2020 1 documented as of this encounter Discharge Disposition Disposition Code Departure Means Destination Discharge to home or self care documented in this encounter Plan of Treatment Not on file documented as of this encounter Procedures Procedure Name Priority Date/Time Associated Diagnosis Comments XR CHEST PA LATERAL 2 VIEWS Schedule Routine, Read Routine (OP Routine) 12/29/2020 11:39 AM PAYMENT ANALYST Dyspnea on exertion documented in this encounter Results * XR Chest Pa Lateral 2 Vw (12/29/2020 11:39 AM PAYMENT ANALYST) Anatomical Region Laterality Modality Body, Chest N/A Computed Radiogr aphy 12/29/2020 11:4 5 AM PAYMENT ANALYST Impressions 12/29/2020 11:46 AM PAYMENT ANALYST No acute findings. ??Large hiatal hernia. Electronically signed by: Saqib Potter M.D. Narrative 12/29/2020 11:46 AM PAYMENT ANALYST EXAMINATION: XR CHEST PA LATERAL 2 VIEWS ORDERING HEALTHCARE PROVIDER: ALHAJI MENDEZ HISTORY: Dyspnea, unspecified SOB/runny nose, 1 week Nonsmoker Covid test negative, yesterday ?? TECHNIQUE: PA and lateral radiographs of the chest. COMPARISON: Chest radiographs 01/15/2020 FINDINGS: HEART/MEDIASTINUM: The cardiomediastinal silhouette and pulmonary vasculature are normal. LUNGS/PLEURA: There is no airspace consolidation or pleural effusion. HARDWARE/LINES/TUBES: None. BONES: No acute findings. OTHER: Large hiatal hernia. Procedure Note Saqib Potter MD - 12/29/2020 EXAMINATION: XR CHEST PA LATERAL 2 VIEWS ORDERING HEALTHCARE PROVIDER: ALHAJI MENDEZ HISTORY: Dyspnea, unspecified SOB/runny nose, 1 week Nonsmoker Covid test negative, yesterday TECHNIQUE: PA and lateral radiographs of the chest. COMPARISON: Chest radiographs 01/15/2020 FINDINGS: HEART/MEDIASTINUM: The cardiomediastinal silhouette and pulmonary vasculature are normal. LUNGS/PLEURA: There is no airspace consolidation or pleural effusion. HARDWARE/LINES/TUBES: None. BONES: No acute findings. OTHER: Large hiatal hernia. IMPRESSION: No acute findings. Large hiatal hernia. Electronically signed by: Saqib Potter M.D. us Alhaji Mendez NEON SIGN WORKER IMG XR PROCEDURES Final Re sult documented in this encounter Visit Diagnoses Diagnosis Dyspnea on exertion Other dyspnea and respiratory abnormality documented in this encounter Additional Health Concerns Infection Onset Date Last Indicated Resolved Time Respiratory Infection (TITI), contact + droplet Comment:Automatically added due to negative COVID-19 result. 12/29/2020 12/29/2020 01/12/2021 3:0 6 AM PAYMENT ANALYST documented as of this encounter Care Teams Professional Sports Scout Relationship Specialty Start Date End Date Francisco Long MD PCP - General 02/23/17 05/15/22 Neil Ag MD PhD [address] [place] [address] Radiation Oncologist Radiation Oncology 12/17/18 [place] [address] [facility] [address] [place] [address] Referring Physician General Surgery 12/17/18 [place] [address] [facility] [address] [place] [address] Medical Oncologist/Res Habilitation Assistant Medical Oncology 12/17/18 [place] [address] [facility] [facility] [address] [place] [address] Consulting Physician Gastroenterology 01/07/20 documented as of this encounter
--- OUTSIDE RECORDS SUMMARY | 2024-11-16 13:01 | XMS_ITS | Encounter Summary ---
Author Organization [facility] Address [address] [place] [address] Care Team Providers Care Industrial Economics Professor Name Role Phone Francisco Long MD Primary Care Provider [phone] Neil Ag MD PhD Unavailable [phone] Ita Vazquez MD Unavailable Caron Mohan MD Unavailable Pebbles Felton MD Unavailable [phone] Reason for Visit * Reason Comments Shortness of Breath with excertion head congestion Encounter Details Date Type Department Care Team (Late st Contact Info) Description 12/30/2020 1:45 PM ELECTRICAL INSTRUMENT TECHNICIAN Office Visit [facility] [address] [facility] [address] [place] [address] Francisco Long MD [address] [place] [address] [address] [place] [address] Acute upper GI bleed (Primary Dx); Body mass index (BMI) 29.0-29.9, adult; Recurrent pulmonary emboli (CMS/HCC); Iron deficiency anemia due to chronic blood loss; 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); Hiatal hernia Social History Tobacco Use Types [...] on file 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 ELECTRICAL INSTRUMENT TECHNICIAN Gender Identity Not on file Sexual Orientation Not on file documented as of this encounter Last Filed Vital Signs Vital Sign Reading Time Taken Comments Blood Pressure 130/70 12/30/2020 1:44 PM ELECTRICAL INSTRUMENT TECHNICIAN Pulse 80 12/30/2020 1:44 PM ELECTRICAL INSTRUMENT TECHNICIAN Temperature - - Respiratory Rate 20 12/30/2020 1:44 PM ELECTRICAL INSTRUMENT TECHNICIAN Oxygen Saturation - - Inhaled Oxygen Concentration - - Weight 85.3 kg (188 lb) 12/30/2020 1:44 PM ELECTRICAL INSTRUMENT TECHNICIAN Height 170.2 cm (5' 7 ) 12/30/2020 1:44 PM ELECTRICAL INSTRUMENT TECHNICIAN Body Mass Index 29.44 12/30/2020 1:44 PM ELECTRICAL INSTRUMENT TECHNICIAN documented in this encounter Ordered Prescriptions Prescription Sig Dispense Quantity Refills Last Filled Start Date End Date famotidine (PEPCID) 40 mg tablet Take 1 tablet (40 mg total) by mouth daily 90 tablet 3 12/30/2020 06/26/[address] (PROTONIX) 40 mg EC tablet Take 1 tablet (40 mg total) by mouth daily 30 tablet 11 12/30/2020 03/02/2022 documented in this encounter Progress Notes * Francisco Long MD - 12/30/2020 1:45 PM CST Subjective/Objective Patient ID: Jolene Cedillo is a 75 y.o. female. Chief Complaint Shortness of Breath (with excertion) and head congestion HPI Bap seen today for follow-up of her shortness of breath with exertion had little head congestion totele visit yesterday was done she tested negative for COVID-19 A year ago patient was hospitalized with GI bleed anemia shortness of breath she has a history of pulmonary embolus and is on Eliquis therapy the patient has a history of postop deep venous thrombosis after orthopedic surgery the patient has been maintain on anticoagulation therapy for several months since she has a history of breast cancer uterine cancer successfully treated . In November of lastyear that she developed shortness of breath was found have pulmonary emboli on CT scan studies for thrombophilia were unrevealing and that in December she developed GI bleed with hemoglobin dropping down to 7 colonoscopy was unremarkable but the patient was found have some gastric erosions she is placed on Protonix but she states she stopped it a few months ago she is uncertain why stenting she needed to take it she states she is taking another medication but does not think it is a aspirin or NSAID but she is going to call me back with the name of it today she denies any melena hematochezia she states she she is taking iron supplementation 1 daily [id number] but she did require IV iron infusions in the past The patient had uterine cancer in October 2018 treated with hysterectomy bilateral salpingo-oophorectomy subsequent found to have breast cancer in October and had surgery in October 2018 by ectomyfollowed by radiation therapy no chemotherapy was necessary for the breast cancer She has longstanding history of hypertension rheumatoid arthritis pre diabetes hyperlipidemia breast cancer uterine cancer both doses following arthroscopic knee surgery history of cataract surgery Patient has never been a smoker drinks alcohol rarely She is accompanied by her Douglas they been over 40 years 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 no children her is a mazariegos Review of Systems Vitals: 12/30/20 1344 BP: 130/70 BP Location: Left arm Patient Position: Sitting Pulse: 80 Resp: 20 Weight: 85.3 kg (188 lb) Height: 170.2 cm (5' 7 ) Physical Exam She is pleasant no distress her blood pressures confirmed neck is supple no JVD lungs are clear without rales rhonchi or wheezes cardiovascular regular without murmurs gallops clicks rubs abdomen soft nontender rectal examination reveals good sphincter tone stools brown heme-positive extremities noedema no cords Homans signs negative Assessment/Plan Diagnoses and all orders for this visit: Acute upper GI bleed (Primary) Patient refuses hospitalization she is accompanied by her Douglas she agrees get a stat hemoglobin obtain this afternoon if it does drop she states she will agree to go to the ER she will stop the Eliquis and the patient will resume Protonix 40 mg each morning and start Pepcid 40 mg each evening she will take both doses today recheck hemoglobin 6:00 a.m. tomorrow morning at the hospital anyworsening shortness of breath fatigue lightheadedness chest pain ER evaluation immediately Her understand that without the Eliquis she may be at high risk for recurrent pulmonary emboli but with GI bleeding patient needs to stop this medication immediately Body mass index (BMI) 29.0-29.9, adult Her weight is not issue at the present time Recurrent pulmonary emboli (CMS/HCC) Hold Eliquis she understands if worsening shortness of breath ER evaluation immediately I think hershortness of breath currently is due to her anemia she is unlikely to have a recurrent emboli with her compliant use of Eliquis Iron deficiency anemia due to chronic blood loss She will continue oral iron for now her iron levels are low which will check today iron supplementation will be changed to intravenous formulation 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) Will continue to monitor this at present no treatment Hiatal hernia Her understand the hiatal hernia may be causing some shortness of breath his compromising lung function may need repeat CT scan Other orders - pantoprazole DR (PROTONIX) 40 mg EC tablet; Take 1 tablet (40 mg total) by mouth daily - famotidine (PEPCID) 40 mg tablet; Take 1 tablet (40 mg total) by mouth daily Her understand that this GI bleed could be life-threatening and that hospitalization would be optimal but she absolutely refuses but she states if she changes mind or she feels worse she willgo to the ER immediately or call me immediately for admission Side effects, risks, interactions reviewed with patient. Indications for testing discussed. Any further problems to contact us. She was told what to look out for and verbalized understanding. The patient was given the opportunity to have all questions answered today and was in agreement with the plan of care. TRICAL INSTRUMENT TECHNICIAN documented in this encounter Plan of Treatment Not on file documented as of this encounter Visit Diagnoses Diagnosis Acute upper GI bleed- Primary Unspecified, hemorrhage of gastrointestinal tract Body mass index (BMI) 29.0-29.9, adult Recurrent pulmonary emboli (CMS/HCC) (HCC) Iron deficiency anemia due to chronic blood loss Iron deficiency anemia secondary to blood loss (chronic) 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) Hiatal hernia Diaphragmatic hernia without mention of obstruction or gangrene documented in this encounter Additional Health Concerns Infection Onset Date Last Indicated Resolved Time Respiratory Infection (TITI), contact + droplet Comment:Automatically added due to negative COVID-19 result. 12/29/2020 12/29/2020 01/12/2021 3:0 6 AM ELECTRICAL INSTRUMENT TECHNICIAN documented as of this encounter Care Teams Industrial Economics Professor Relationship Specialty Start Date End Date Francisco Long MD PCP - General 02/23/17 05/15/22 Neil Ag MD PhD [address] [place] [address] Radiation Oncologist Radiation Oncology 12/17/18 [place] [address] [facility] [address] [employer], [place] [id number] Referring Physician General Surgery 12/17/18 [place] [address] [facility] [address] [employer], [place] [id number] Medical Oncologist/Lube Man Medical Oncology 12/17/18 [place] [address] [facility] [address] [employer] [place] [address] Consulting Physician Gastroenterology 01/07/20 documented as of this encounter
--- OUTSIDE RECORDS SUMMARY | 2024-11-16 13:01 | XMS_ITS | Encounter Summary ---
Author Organization [facility] Address [address] [place] [address] Care Team Providers Care Vending Machine Repairer Name Role Phone Francisco Long MD Primary Care Provider Neil Ag MD PhD Unavailable [phone] Ita Vazquez MD Unavailable Caron Mohan MD Unavailable Pebbles Felton MD Unavailable [phone] Encounter Details Date Type Department Care Team (Late st Contact Info) Description 12/30/2020 Telephone [facility] [address] [facility] [address] [place] [address] Francisco Long MD [address] [place] [address] [address] [place] [address] Social History Tobacco Use Types [...] on file 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 CHAIN MENDER Gender Identity Not on file Sexual Orientation Not on file documented as of this encounter Miscellaneous Notes * Telephone Encounter - Francisco Long MD - 12/30/2020 4:30 PM CST I talked on the telephone she is going to double up on her iron take it twice a day she is going tohold the Eliquis until Sunday all see Christiano in the office she understands any worsening shortnessof breath lightheadedness chest pain ER evaluation immediately will stay away from orange juice anyacid he food vitamin- C she will take the anti acid type medications immediately starting today hold the evening dose Eliquis recheck hemoglobin in the morning N MENDER * Telephone Encounter - Latoya Cotton MA - 12/30/2020 3:56 PM CHAIN MENDER jr N MENDER * Telephone Encounter - Yuli Lopez - 12/30/2020 3:49 PM CST Carvedilol 6.25 mg - pt takes one tablet twice daily. Pt says she takes this w/her Eloquis. Pt says Dr Long asked her to call and give him the information on her Carvedilol. Please advise. N MENDER documented in this encounter Plan of Treatment Not on file documented as of this encounter Visit Diagnoses Not on filedocumented in this encounter Additional Health Concerns Infection Onset Date Last Indicated Resolved Time Respiratory Infection (TITI), contact + droplet Comment:Automatically added due to negative COVID-19 result. 12/29/2020 12/29/2020 01/12/2021 3:0 6 AM CHAIN MENDER documented as of this encounter Care Teams Vending Machine Repairer Relationship Specialty Start Date End Date Francisco Long MD PCP - General 02/23/17 05/15/22 Niel Ag MD PhD [address] [place] [address] Radiation Oncologist Radiation Oncology 12/17/18 [place] [address] [facility] [address] [place], [place] [id number] Referring Physician General Surgery 12/17/18 [place] [address] [facility] [address] [place], [place] [id number] Medical Oncologist/Wooden Boat Builder Medical Oncology 12/17/18 [place] [address] [facility] [address] [place] [address] Consulting Physician Gastroenterology 01/07/20 documented as of this encounter
--- OUTSIDE RECORDS SUMMARY | 2024-11-16 13:01 | XMS_ITS | Encounter Summary ---
Author Organization [facility] Address [address] [place] [address] Care Team Providers Care Cork Wirer Name Role Phone Francisco Long MD Primary Care Provider Neil Ag MD PhD Unavailable [phone] Ita estrada MD Unavailable Caron Mohan MD Unavailable Pebbles Felton MD Unavailable [phone] Reason for Referral * Diagnostic Imaging (Routine) - Closed Specialty Diagnoses / Procedures Referred By Contac t Referred To Contact Diagnoses Dyspnea on exertion Procedures XR Chest Pa Lateral 2 Vw Alhaji Mendez NP Phone: tel: fax: [facility] [address] [place] [address] Referral ID Status Reason Start Date Expiration Date Visits Re quested Visits Authorized [id number] Closed 12/29/2020 01/28/2022 1 1 EATIONAL THERAPIST Encounter Details Date Type Department Care Team (Late st Contact Info) Description 12/29/2020 Orders Only [facility] [address] [facility] [address] [place] [address] Alhaji Mendez NP [address] [place] [address] Dyspnea on exertion (Primary Dx) Social History Tobacco Use Types [...] on file 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 RECREATIONAL THERAPIST Gender Identity Not on file Sexual Orientation Not on file documented as of this encounter Plan of Treatment Not on file documented as of this encounter Results * XR Chest Pa Lateral 2 Vw (12/29/2020 11:39 AM RECREATIONAL THERAPIST) Anatomical Region Laterality Modality Body, Chest N/A Computed Radiogr aphy 12/29/2020 11:4 5 AM RECREATIONAL THERAPIST Impressions 12/29/2020 11:46 AM RECREATIONAL THERAPIST No acute findings. ??Large hiatal hernia. Electronically signed by: Saqib Potter M.D. Narrative 12/29/2020 11:46 AM RECREATIONAL THERAPIST EXAMINATION: XR CHEST PA LATERAL 2 VIEWS [...] by: Saqib Potter M.D. us Alhaji Mendez RIB CUTTER IMG XR PROCEDURES Final Re sult * (ABNORMAL) CBC with auto differential (12/29/2020 11:20 AM RECREATIONAL THERAPIST) WBC 6.8 3.8 - 9.9 K/cumm C[facility]ER [...] ([place]) Blood specimen (specimen) 12/29/2020 11:20 AM RECREATIONAL THERAPIST 12/29/2020 12:40 PM RECREATIONAL THERAPIST Alhaji Mendez NP LAB BLOOD ORDERABLES Final Result Performing Organization Address City/[facility]/ZIP Co de Phone Number MEHRAN VALDERRAMA) [address] [facility] Department [place] [address] * (ABNORMAL) Basic metabolic panel (12/29/2020 11:20 AM RECREATIONAL THERAPIST) Sodium 140 135 - 145 mmol/L CERNER [...] ([place]) Blood specimen (specimen) 12/29/2020 11:20 AM RECREATIONAL THERAPIST 12/29/2020 12:40 PM RECREATIONAL THERAPIST Alhaji Mendez NP LAB BLOOD ORDERABLES Final Result Performing Organization Address City/[facility] Co de Phone Number MEHRAN THOMAS ([place]) [address] [facility] [place] [address] * Pro B-type natriuretic peptide (12/29/2020 11:20 AM RECREATIONAL THERAPIST) NT-proBNP 200 <=300 pg/mL MEHRAN THOMAS ([place]) Comment: Interpretive Comments: A. Dyspnea in Acute [...] JO et.al. Eur Heart J. 2006:27:330-337. 2. Shadi HORTAKaren AM. J. AM Nabil Cardiol: Cardiovasc Imag. 2009;2: 216- 225. Interpretive Data Last Revised Date: 2018. Blood specimen (specimen) 12/29/2020 11:20 AM RECREATIONAL THERAPIST 12/29/2020 3:30 PM RECREATIONAL THERAPIST Alhaji Mendez RIB CUTTER LAB BLOOD ORDERABLES Final Result [facility] ([place]) [address] [facility] Department [place] [address] documented in this encounter Visit Diagnoses Diagnosis Dyspnea on exertion- Primary Other dyspnea and respiratory abnormality Dyspnea on exertion Other dyspnea and respiratory abnormality documented in this encounter Additional Health Concerns Infection Onset Date Last Indicated Resolved Time COVID: Suspected 12/28/2020 12/28/2020 12/29/2020 7:21 AM RECREATIONAL THERAPIST Respiratory Infection (TITI), contact + droplet Comment:Automatically added due to negative COVID-19 result. 12/29/2020 12/29/2020 01/12/2021 3:0 6 AM RECREATIONAL THERAPIST documented as of this encounter Care Teams Cork Wirer Relationship Specialty Start Date End Date Francisco Long MD PCP - General 02/23/17 05/15/22 Neil Ag MD PhD [address] [place] [address] Radiation Oncologist Radiation Oncology 12/17/18 [place] [address] [place] [address] Referring Physician General Surgery 12/17/18 [place] [address] [facility], [place] [id number] Medical Oncologist/Trimmer Meat Medical Oncology 12/17/18 [place] [address] [address] [facility] [address] [place] [address] [address] Consulting Physician Gastroenterology 01/07/20 documented as of this encounter
--- OUTSIDE RECORDS SUMMARY | 2024-11-16 13:01 | XMS_ITS | Encounter Summary ---
Author Organization [facility] Address [address] [place] [address] Care Team Providers Care Qualitative Field Coordinator Name Role Phone Francisco Long MD Primary Care Provider [phone] Neil gA MD PhD Unavailable [phone] Ita estrada MD Unavailable Caron Mohan MD Unavailable Pebbles Felton MD Unavailable [phone] Encounter Details Date Type Department Care Team (Late st Contact Info) Description 12/30/2020 Orders Only [facility] [address] [facility] [address] [place] [address] Francisco Long MD [address] [place] [address] [address] [place] [address] Anemia, unspecified type (Primary Dx); Dyspnea on exertion Social History Tobacco Use [...] on file 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 LEAN LEADER Gender Identity Not on file Sexual Orientation Not on file documented as of this encounter Plan of Treatment Not on file documented as of this encounter Results * (ABNORMAL) Iron profile w/ IBC (12/30/2020 2:42 PM LEAN LEADER) Iron 22(L) 35 - 145 mcg/dL [facility] ([place]) TIBC 399 250 - 400 mcg/dL [facility] ([place]) Transferrin saturation 6(L) 20 - 50 % [facility] ([place]) Blood specimen (specimen) 12/30/2020 2:42 PM LEAN LEADER 12/30/2020 2:48 PM LEAN LEADER Narrative [facility] ([place]) - 12/30/2020 3:11 PM LEAN LEADER STAT today Francisco Long MD LAB BLOOD ORDERABLES Final Res ult Performing Organization Address [facility] Co de Phone Number MEHRAN THOMAS ([place]) [address] [facility] [place] [address] * (ABNORMAL) Hemoglobin (12/30/2020 2:42 PM LEAN LEADER) Hgb 8.6(L) 11.9 - 15.5 g/dL [facility] ([place]) Blood specimen (specimen) 12/30/2020 2:42 PM LEAN LEADER 12/30/2020 2:49 PM LEAN LEADER Narrative [facility] ([place]) - 12/30/2020 2:51 PM LEAN LEADER STAT today Francisco Long MD LAB BLOOD ORDERABLES Final Res ult CERNER [address] Department [place] [address] documented in this encounter Visit Diagnoses Diagnosis Anemia, unspecified type- Primary Dyspnea on exertion Other dyspnea and respiratory abnormality Anemia, unspecified type Dyspnea on exertion Other dyspnea and respiratory abnormality documented in this encounter Additional Health Concerns Infection Onset Date Last Indicated Resolved Time Respiratory Infection (TITI), contact + droplet Comment:Automatically added due to negative COVID-19 result. 12/29/2020 12/29/2020 01/12/2021 3:0 6 AM LEAN LEADER documented as of this encounter Care Teams Qualitative Field Coordinator Relationship Specialty Start Date End Date Francisco Long MD PCP - General 02/23/17 05/15/22 Neil Ag MD PhD [address] [place] [address] Radiation Oncologist Radiation Oncology 12/17/18 [place] [address] [facility] [address] [facility], [place] [id number] Referring Physician General Surgery 12/17/18 [place] [address] [facility] [address] [facility], [place] [id number] Medical Oncologist/Petroleum Geologist Medical Oncology 12/17/18 [place] [address] [facility] [address] [facility], [place] [id number] Consulting Physician Gastroenterology 01/07/20 documented as of this encounter
--- OUTSIDE RECORDS SUMMARY | 2024-11-16 13:01 | XMS_ITS | Encounter Summary ---
Author Organization [facility] Address [address] [place] [address] Care Team Providers Care Digital Media Sales Consultant Name Role Phone Francisco Long MD Primary Care Provider [phone] Neil Ag MD PhD Unavailable [phone] Ita estrada MD Unavailable Caron Mohan MD Unavailable Pebbles Felton MD Unavailable [phone] Reason for Visit * Reason Comments Shortness of Breath x 1 week Nasal Congestion Encounter Details Date Type Department Care Team (Late st Contact Info) Description 12/28/2020 11:30 AM LIBERAL ARTS TEACHER Telemedicine [facility] [address] [facility] [facility] [address] [place] [address] Marianne Mendez, APOLINAR [address] [facility] [place] [address] Dyspnea on exertion (Primary Dx); Rhinorrhea; BMI 29.0-29.9,adult Social History Tobacco Use Types Packs/Day Years [...] on file 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 LIBERAL ARTS TEACHER Gender Identity Not on file Sexual Orientation Not on file documented as of this encounter Last Filed Vital Signs Vital Sign Reading Time Taken Comments Blood Pressure - - Pulse - - Temperature - - Respiratory Rate - - Oxygen Saturation - - Inhaled Oxygen Concentration - - Weight 84.4 kg (186 lb) 12/28/2020 11:31 AM LIBERAL ARTS TEACHER Height 170.2 cm (5' 7 ) 12/28/2020 11:31 AM LIBERAL ARTS TEACHER Body Mass Index 29.13 12/28/2020 11:31 AM LIBERAL ARTS TEACHER documented in this encounter Progress Notes * Marianne Mendez NP - 12/28/2020 11:30 AM CST Images from the original note were not included. [facility] Patient ID: Jolene Cedillo is a 75 y.o. female Chief Complaint. Chief Complaint Patient presents with ??? Shortness of Breath x 1 week ??? Nasal Congestion HPI: Jolene Cedillo presents today due to mild dyspnea when walking for the past week. She alsohas a runny nose. Denies chest pain, fevers, cough, orthopnea, edema. She denies ill contacts but states she does go out to eat quite often. She denies history of heart failure. He she does have a history of PE and is vigilant with taking her Eliquis. This was a telemedicine visit with Jolene Cedillo alone which took place via Telephone. During the visit, I was located in the office and the patient was located at home in the [facility]. The patient visit started at 1125 and ended at 1200. My total encounter time on 12/28/2020 was 35 minuteswhich was spent in the activities documented in the note. This includes time spent prior to the visit and after the visit in direct care of the patient. This time does not include time spent in any separately reportable services.. The patient has been informed that the visit may not be secure and acknowledged the information. I have explained the option of participating in a telephone or video visit during the [facility] emergency to the patient. After being given an opportunity to ask questions about and discuss this type of visit, the patient verbally consented to proceeding with the telephone/video visit.The patient understands that this service replaces an office visit and they may be billed and/or responsible for any applicable copayments. Marianne Mendez NP Past Medical History: Diagnosis Date ??? HX OTHER MEDICAL B/L arthroscopic knee surg ??? HX OTHER MEDICAL RA ??? HX OTHER MEDICAL R knee replacement ??? HX OTHER MEDICAL blood clot- right leg ??? Hyperlipidemia Hyperlipidemia ??? Hypertension Hypertension ??? Screening mammogram, encounter for 1945 ??? Uterine cancer (CMS/HCC) 04/2018 Past Surgical History: Procedure Laterality Date ??? CATARACT EXTRACTION Cataract extraction ??? HYSTERECTOMY 06/2018 HOME MEDICATIONS : apixaban (ELIQUIS) 5 mg tablet carvediloL (COREG) 6.25 mg tablet cholecalciferol (Vitamin D3) 400 unit capsule ferrous sulfate 325 mg (65 mg of elemental iron) tablet losartan (COZAAR) 100 mg tablet methotrexate 2.5 mg tablet letrozole (FEMARA) 2.5 mg tablet rosuvastatin (CRESTOR) 5 mg tablet Allergies Allergen Reactions ??? Atorvastatin Muscle pain [...] mellitus; ??? Other Father's Sister mastectomy. ??CA; Review of Systems: Review of Systems Constitutional: Negative for chills, diaphoresis and fever. HENT: Positive for rhinorrhea. Negative for congestion and sore throat. Denies loss of sense of taste or smell Respiratory: Positive for cough and shortness of breath. Negative for chest tightness and wheezing. Cardiovascular: Negative for chest pain, palpitations and leg swelling. Gastrointestinal: Negative for abdominal pain, diarrhea, nausea and vomiting. Genitourinary: Negative for difficulty urinating. Musculoskeletal: Negative for myalgias. Neurological: Negative for headaches. Vitals: 12/28/20 1131 Weight: 84.4 kg (186 lb) Height: 170.2 cm (5' 7 ) Physical Exam: Physical Exam Unable to be performed due to telephone visit. Speaking clearly in complete sentences on the phone.No notable wheezing, dyspnea or distress. She was noted to have occasional cough during conversation. Denies any swelling in her legs. Assessment/Plan Diagnoses and all orders for this visit: Dyspnea on exertion (Primary) - Request for Ambulatory Collection Site Testing - Adult; Future Will start with COVID testing due to the rhinorrhea, shortness of breath, cough. Would also recommend chest x-ray. Patient states the shortness of breath is very mild and otherwise she feels fine. She was given worsening symptoms for which to report or present to ED. she knows to isolated home until COVID test is complete. Rhinorrhea - Request for Ambulatory Collection Site Testing - Adult; Future Okay for Flonase. Humidifier at home. COVID testing ordered. BMI 29.0-29.9,adult Weight loss will be beneficial for her overall health. All past family, medical, and social history were reviewed and updated in the EMR as well as current medications. Patient offered no further complaints and was in agreement with plan of care. Patientwas advised regarding dosage, use, and side effects of any new medications. Patient was advised to f/u in office with any worsening or little to no improvement of symptoms. Patient was advised to follow-up regarding the results of testing ordered in office today and that they should hear from us regarding the results in 2-3 business days, discussed benefits of MyChart in regard to patient experience. The patient was given the opportunity to have all questions answered today and was in agreementwith the plan of care. BMI Follow-up includes: education provided. Body mass index is 29.13 kg/m??. Marianne Mendez NP Cosigned by Francisco Long MD at 12/28/2020 1:42 PM LIBERAL ARTS TEACHER RAL ARTS TEACHER RAL ARTS TEACHER documented in this encounter Plan of Treatment Not on file documented as of this encounter Visit Diagnoses Diagnosis Dyspnea on exertion- Primary Other dyspnea and respiratory abnormality Rhinorrhea Other diseases of nasal cavity and sinuses BMI 29.0-29.9,adult documented in this encounter Historical Medications * This list may reflect changes made after this encounter. cholecalciferol (VITAMIN D-3) 400 unit capsule 1,000 Units 06/26/2024 added in this encounter Care Teams Digital Media Sales Consultant Relationship Specialty Start Date End Date Francisco Long MD PCP - General 02/23/17 05/15/22 Neil Ag MD PhD [address] [place] [address] Radiation Oncologist Radiation Oncology 12/17/18 [place] [address] [facility] [address] [place], [place] [id number] Referring Physician General Surgery 12/17/18 [place] [address] [facility] [address] [place], [place] [id number] Medical Oncologist/Electronic Page Makeup System Operator Medical Oncology 12/17/18 [place] [address] [facility] [address] [place], [place] [id number] Consulting Physician Gastroenterology 01/07/20 documented as of this encounter
--- OUTSIDE RECORDS SUMMARY | 2024-11-16 13:02 | XMS_ITS | Encounter Summary ---
Author Organization [facility] Healthcare Address [address] [place] [address] Care Team Providers Care End Polisher Name Role Phone Francisco Long MD Primary Care Provider Neil Ag MD PhD Unavailable Ita Vazquez MD Unavailable Caron Mohan MD Unavailable Pebbles Felton MD Unavailable [phone] Mounika Cruz RN Unavailable Encounter Details Date Type Department Care Team (Late st Contact Info) Description 11/25/2020 10:30 AM IMPORT EXPORT CLERK Office Visit [facility] Radiation Oncology [address] [place] [id number] Neil Ag MD PhD [address] [place] [id number] Malignant neoplasm of upper-inner quadrant of left breast in female, estrogen receptor positive (CMS/HCC) (Primary Dx) Discharge Disposition: Discharge to home [...] on file 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 IMPORT EXPORT CLERK Gender Identity Not on file Sexual Orientation Not on file documented as of this encounter Last Filed Vital Signs Vital Sign Reading Time Taken Comments Blood Pressure 128/76 11/25/2020 10:24 AM IMPORT EXPORT CLERK Pulse 89 11/25/2020 10:24 AM IMPORT EXPORT CLERK Temperature 36.4 ??C (97.5 ??F) 11/25/2020 10:[address] Respiratory Rate 18 11/25/2020 10:24 AM IMPORT EXPORT CLERK Oxygen Saturation 100% 11/25/2020 10:24 AM IMPORT EXPORT CLERK Inhaled Oxygen Concentration - - Weight 85.3 kg (188 lb) 11/25/2020 10:24 AM IMPORT EXPORT CLERK Height - - Body Mass Index 29.44 11/01/2020 10:15 AM IMPORT EXPORT CLERK documented in this encounter Patient Instructions * Patient Instructions* Neil Ag MD PhD - 11/25/2020 10:30 AM IMPORT EXPORT CLERK We know that there are many questions regarding the coronavirus (COVID-19), and the best recommendations in response to it. This is a fluid situation, and one in which recommendations and best practices will likely evolve in the coming days/weeks, if not longer. We recommend the following for all patients: - Stay home when you are sick and avoid contact with those who show signs of illness - Clean and disinfect frequently touched surfaces - Use a tissue to cover your sneeze and cough - Wash your hands often with soap and water, or alcohol-based hand-grocery clerk selling - For the most current and up to date information, we would recommend accessing the following link for the Centers for Disease Control (CDC): www.cdc.gov/coronavirus For patients who are starting radiation therapy or currently receiving radiation: - If you have any symptoms such as fever, cough, shortness of breath, or any other flu-like symptoms, please call the hospital overlock sewing machine operator at [phone] and ask for the [email or web address] hotline. Hotline personnel will screen the patients over the phone and if appropriate, direct the patient to the testing sites. This service is currently available 8AM to 4PM Sunday-Sunday and 8AM to 12PM Sunday and Sunday. - After contacting the COVID hotline, please contact the department of radiation oncology to make them aware. Do not come to your scheduled treatment or appointment until the radiation oncology team has instructed you to do so. - If you are diagnosed with COVID-19 infection during your course of radiation therapy, it may be necessary to interrupt your treatment until you have recovered from the infection. Such a break in treatment may result in other adjustments to your radiation prescription and schedule. For patients who have completed radiation therapy and are seeing your radiation oncologist for follow-up: - Your physicians will be reviewing whether he/she thinks it is best for you to keep your scheduledappointments, or whether to reschedule. If your physician feels that it is best to reschedule, his/her team will be in contact with you to assist with rescheduling RT EXPORT CLERK documented in this encounter Discharge Disposition Disposition Code Departure Means Destination Discharge to home or self care documented in this encounter Progress Notes * Neil Ag MD PhD - 11/25/2020 10:30 AM CST Staff Physician: Neil Ag MD PhD Referring Physician: Patient Care Team: Ita Vazquez MD as Referring Physician (General Surgery) Date of Service: 11/25/2020 RADIATION ONCOLOGY FOLLOW UP NOTE IDENTIFYING DATA: Cancer Staging Malignant neoplasm of upper-inner quadrant of left breast in female, estrogen receptor positive (CMS/HCC) Staging form: Breast, AJCC 8th Edition - Pathologic stage from 12/17/2018: Stage IA (pT1b, pN1mi(sn), cM0, G2, ER: Positive, NH: Positive, HER2: Negative) - Signed by Neil Ag MD PhD on 12/17/2018 Treatment Intent: adjuvant Jolene Cedillo is a 74 y.o. 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 She is currently on letrozole. She was last seen in our office on 05/27/2020. INTERVAL HISTORY: Since her last follow-up, the patient continues to do relatively well with regard to her treated left breast. She denies any interval skin changes or any pain in the left breast. She denies any new bony pain or pain otherwise (0/10). She denies any headache, nausea, vomiting, vision changes, or anyfocal numbness or weakness. She has her next surveillance mammogram scheduled for early November 2020. The patient was taking letrozole, but had stopped taking this medication by her own decision approximately 1 month ago due to concern in part on which she learned was the affect it has on bone density. She did not discuss this decision with her medical oncologist. She otherwise denies any changesto her medical history. PREVIOUS RADIATION: 4256 cGy in 16 fractions to the left breast completed on 01/29/2019. ALLERGIES: Allergies Allergen Reactions ??? Atorvastatin Muscle pain ??? Codeine Nausea only Reaction: Nausea, MEDICATIONS: Reviewed REVIEW OF SYSTEM Except for the symptoms described above, the remainder of the review of systems is negative. Specifically, except as noted when asked the patient expressed no complaints relative to constitutional, fever, weight loss, eyes, ears, nose, mouth, throat, neurologic, cardiovascular, pulmonary, breasts, GI, , skin, musculoskeletal, endocrine, hematologic/lymphatic, or immunologic systems. PHYSICAL EXAMINATION: BP 128/76 Pulse 89 Temp 36.4 ??C (97.5 ??F) Resp 18 Wt 85.3 kg (188 lb) SpO2 100% BMI 29.44 kg/m?? Pain Score and Location 11/25/20 1024 PainSc: 0-No pain ECOG Performance: 0 Physical Exam Constitutional: General: She is not in acute distress. Appearance: Normal appearance. She is not toxic-appearing. HENT: Head: Normocephalic and atraumatic. Eyes: Extraocular Movements: Extraocular movements intact. Pupils: Pupils are equal, round, and reactive to light. Neck: Musculoskeletal: Normal range of motion and neck supple. Cardiovascular: Rate and Rhythm: Normal rate and regular rhythm. Pulmonary: Effort: Pulmonary effort is normal. No respiratory distress. Chest: Breasts: Right: No swelling, bleeding, inverted nipple, mass, nipple discharge, skin change or tenderness. Left: Skin change present. No swelling, bleeding, inverted nipple, mass, nipple discharge or tenderness. Comments: Left breast with some persistent hyperpigmentation in the areola, but otherwise no significant hyperpigmentation or any telangiectasia. No masses palpable in either breast bilaterally. Breast exam chaperoned by Stewart Gupta R.N.. Abdominal: General: There is no distension. Palpations: Abdomen is soft. Musculoskeletal: Normal range of motion. Lymphadenopathy: Upper Body: Right upper body: No axillary adenopathy. Left upper body: No axillary adenopathy. Neurological: General: No focal deficit present. Mental Status: She is alert and oriented to person, place, and time. Psychiatric: Mood and Affect: Mood normal. Behavior: Behavior normal. Thought Content: Thought content normal. Judgment: Judgment normal. 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 She is currently on letrozole though the patient self stopped this medication approximately 1 month ago. With regard to her treated left breast, she continues to do well with some residual mild hyperpigmentation but no clinical evidence of disease recurrence at this time. Her surveillance mammogram is scheduled for November 2020. With regard to discontinuing the letrozole, thepatient was advised of the importance of this medication in overall management of her breast cancerand that she needs to discuss this decision with Medical Oncology when she meets with them next week to both make them aware of this change and to discuss or concerns regarding this medication and potentially restarting if these concerns are addressed. Otherwise, the patient is now almost 2 years out from radiation therapy with only mild residual hyperpigmentation but no significant radiation related toxicity and no clinical evidence of disease. PLAN: As the patient is now almost 2 years out from radiation therapy with only mild residual radiation related changes and no clinical evidence of disease, we will follow up with the patient on an as-needed basis. She will continue to follow-up with her surgeon and medical oncologist at [facility] for surveillance imaging and continued exam. Continue close follow up with her other healthcare providers. RAD ONC PAIN PLAN: The patient is not currently having any pain that requires changes in pain management. My total face to face time with this patient during this office visit: 15 minutes DISEASE STATUS/TOXICITY: Disease Status: Controlled New metachronous cancer?: No RT EXPORT CLERK documented in this encounter Nursing Notes * Molly Gupta RN - 11/25/2020 10:30 AM CST Faint hyperpigmentation of left breast. RT EXPORT CLERK documented in this encounter Plan of Treatment Not on file documented as of this encounter Visit Diagnoses Diagnosis Malignant neoplasm of upper-inner quadrant of left breast in female, estrogen receptor positive (HCC)- Primary documented in this encounter Care Teams End Polisher Relationship Specialty Start Date End Date Francisco Long MD PCP - General 02/23/17 05/15/22 Neil Ag MD PhD [address] [place] [address] Radiation Oncologist Radiation Oncology 12/17/18 [place] [address] [facility] [address] [place] [address] Referring Physician General Surgery 12/17/18 [place] [address] [address] [address] Medical Oncologist/Cafe Or Restaurant Manager Medical Oncology 12/17/18 [place] [address] [address] [address] Consulting Physician Gastroenterology 01/07/20 Mounika Cruz RN [address] [place] [address] [address] [place] [address] Screen Printer 11/17/20 11/28/20 documented as of this encounter
--- OUTSIDE RECORDS SUMMARY | 2024-11-16 13:02 | XMS_ITS | Encounter Summary ---
Author Organization [facility] Medical [facility] Address [address] [place] [address] Care Team Providers Care Crime Scene Analyst Name Role Phone Francisco Long MD Primary Care Provider Neil Ag MD PhD Unavailable [phone] Ita estrada MD Unavailable Caron Mohan MD Unavailable Pebbles Felton MD Unavailable [phone] Encounter Details Date Type Department Care Team (Late st Contact Info) Description 12/07/2020 Orders Only [facility] 2 [facility] [address] [place] [address] Francisco Long MD [address] [place] [address] [address] [place] [address] Social History Tobacco Use Types [...] on file 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 SALESPERSON NECKTIES Gender Identity Not on file Sexual Orientation Not on file documented as of this encounter Miscellaneous Notes * Result Encounter Note - Francisco Long MD - 12/08/2020 7:56 AM CST Lab work looks good A1c test is much better than it was a year ago so sugars much better than it was a year ago A1c test is 5.6 basically normal blood counts revealed very mild anemia B12 levels okayfolic acid levels okay recheck CBC iron profile 8 weeks from now diagnosis anemia SPERSON NECKTIES documented in this encounter Plan of Treatment Not on file documented as of this encounter Procedures Procedure Name Priority Date/Time Associated Diagnosis Comments VITAMIN B12 AND FOLATE Routine 12/07/2020 8:29 AM SALESPERSON NECKTIES CBC WITH AUTO DIFFERENTIAL Routine 12/07/2020 8:29 AM SALESPERSON NECKTIES PROTEIN ELECTROPHORESIS, WITH REFLEX, SERUM Routine 12/07/2020 8:29 AM SALESPERSON NECKTIES HEMOGLOBIN A1C Routine 12/07/2020 8:29 AM SALESPERSON NECKTIES documented in this encounter Results * Hemoglobin A1c (12/07/2020 8:29 AM SALESPERSON NECKTIES) Hgb A1C 5.6 <5.7 % of total Hgb [facility] Comment: For the purpose of screening for the presence of diabetes: <5.7% ? Consistent with the absence of diabetes 5.7-6.4% ?Consistent with increased risk for diabetes ?(prediabetes) > or =6.5% ??Consistent with diabetes This assay result is consistent with a decreased risk of diabetes. Currently, no consensus exists regarding use of hemoglobin A1c for diagnosis of diabetes in children. According to [place] Diabetes Association (ADA) guidelines, hemoglobin A1c <7.0% represents optimal control in non- diabetic patients. Different metrics may apply to specific patient populations. Standards of Medical Care in Diabetes(ADA). ?? 12/07/2020 8:29 AM SALESPERSON NECKTIES 12/07/2020 8:32 AM SALESPERSON NECKTIES Francisco Long MD LAB BLOOD ORDERABLES Final Res ult Performing Organization Address [facility] de Phone Number [facility] [address] [place] [address] * Vitamin B12 and Folate (12/07/2020 8:29 AM SALESPERSON NECKTIES) [facility] Vitamin B12 512 200 - 1,100 pg/mL [facility] Folate, Serum 5.7 ng/mL [facility] Comment: ? Reference Range ? Low: ? <3.4 ? Borderline: ?3.4-5.4 ? Normal: ?>5.4 12/07/2020 8:29 AM SALESPERSON NECKTIES 12/07/2020 8:32 AM SALESPERSON NECKTIES Francisco Long MD LAB BLOOD ORDERABLES Final Res ult Performing Organization Address [facility] de Phone Number [facility] [address] [place] [address] * (ABNORMAL) Protein Electrophoresis, With Reflex, Serum (12/07/2020 8:29 AM SALESPERSON NECKTIES) [facility] Protein, sr 5.9(L) 6.1 - 8.1 g/dL [facility] ALBUMIN 3.6(L) 3.8 - 4.8 g/dL [facility] Alpha-1 Globulin 0.3 0.2 - 0.3 g/dL [facility] Alpha-2 Globuliin 0.7 0.5 - 0.9 g/dL [facility] Beta-1 globulin 0.4 0.4 - 0.6 g/dL [facility] Beta 2 globulin 0.3 0.2 - 0.5 g/dL [facility] Gamma globulin 0.6(L) 0.8 - 1.7 g/dL [facility] SPE, interp [facility] Comment: Hypogammaglobulinemia may be seen in early or evolving lymphoproliferative disorders, acquired or congenital immune deficiencies, immunosuppressive therapy and light chain disease. Consider urine protein electrophoresis, urine immunofixation and/or free light chains if clinically indicated. 12/07/2020 8:29 AM SALESPERSON NECKTIES 12/07/2020 8:32 AM SALESPERSON NECKTIES us Francisco Long MD LAB BLOOD ORDERABLES Final Res ult [facility] [address] [place] [address] * (ABNORMAL) CBC with auto differential (12/07/2020 8:29 AM SALESPERSON NECKTIES) Pathologist [facility] WBC 4.4 3.8 - 10.8 Thousand/u L [facility] RBC, POC 4.22 3.80 - 5.10 Million/uL [facility] Hgb 11.6(L) 11.7 - 15.5 g/dL [facility] Hct 37.2 35.0 - 45.0 % [facility] MCV 88.2 80.0 - 100.0 fL [facility] MCH 27.5 27.0 - 33.0 pg [facility] MCHC 31.2(L) 32.0 - 36.0 g/dL [facility] Rdw 16.4(H) 11.0 - 15.0 % [facility] Platelets 220 140 - 400 Thousand/u L [facility] MPV 9.8 7.5 - 12.5 fL [facility] Neutrophils, abs 3,331 1,500 - 7,800 cells/uL [facility] Lymphocytes, abs 559(L) 850 - 3,900 cells/uL [facility] Monocyte abs 330 200 - 950 cells/uL [facility] Eosinophils, abs 150 15 - 500 cells/uL [facility] Basophils, abs 31 0 - 200 cells/uL [facility] Neutrophils 75.7 % [facility] Lymphocyte pct 12.7 % [facility] Monocytes 7.5 % [facility] Eosinophils 3.4 % [facility] Basophils 0.7 % [facility] 12/07/2020 8:29 AM SALESPERSON NECKTIES 12/07/2020 8:32 AM SALESPERSON NECKTIES us Francisco Long MD LAB BLOOD ORDERABLES Final Res ult [facility] [address] [place] [address] documented in this encounter Visit Diagnoses Not on filedocumented in this encounter Care Teams Crime Scene Analyst Relationship Specialty Start Date End Date Francisco Long MD PCP - General 02/23/17 05/15/22 Neil Ag MD PhD [address] [place] [address] Radiation Oncologist Radiation Oncology 12/17/18 [place] [address] [place], [place] [address] Referring Physician General Surgery 12/17/18 [place] [address] [address] [address] Medical Oncologist/Wood Products Manufacturer Medical Oncology 12/17/18 [place] [address] [address] Consulting Physician Gastroenterology 01/07/20 documented as of this encounter
--- OUTSIDE RECORDS SUMMARY | 2024-11-16 13:02 | XMS_ITS | Encounter Summary ---
Author Organization [facility] Medical Group Address [address] [place] [address] Care Team Providers Care Fish Warden Name Role Phone Francisco Long MD Primary Care Provider [phone] Neil Ag MD PhD Unavailable [phone] Ita estrada MD Unavailable Caron Mohan MD Unavailable [phone] Pebbles Felton MD Unavailable [phone] Encounter Details Date Type Department Care Team (Late st Contact Info) Description 12/08/2020 Telephone [facility] 2 [facility] [address] [place] [address] Francisco Long MD [address] [place] [address] [address] [place] [address] Social History Tobacco Use Types [...] on file 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 HYDROMETEOROLOGIST Gender Identity Not on file Sexual Orientation Not on file documented as of this encounter Miscellaneous Notes * Addendum Note - Kae Burton - 01/03/2021 9:15 AM CSTAddended by: KAE BURTON on: 01/03/2021 09:15 AM Modules accepted: Orders OMETEOROLOGIST * Addendum Note - Kae Burton - 01/03/2021 9:14 AM CSTAddended by: KAE BURTON on: 01/03/2021 09:14 AM Modules accepted: Orders OMETEOROLOGIST * Addendum Note - Yuli Coffman - 12/08/2020 10:09 AM CSTAddended by: YULI COFFMAN on: 12/08/2020 10:09 AM Modules accepted: Orders OMETEOROLOGIST * Addendum Note - Yuli Coffman - 12/08/2020 10:08 AM CSTAddended by: YULI COFFMAN on: 12/08/2020 10:08 AM Modules accepted: Orders OMETEOROLOGIST * Telephone Encounter - Yuli Coffman - 12/08/2020 10:05 AM CST Opened in error OMETEOROLOGIST documented in this encounter Plan of Treatment Not on file documented as of this encounter Results * Iron profile w/ IBC (01/03/2021 9:19 AM HYDROMETEOROLOGIST) Iron 125 35 - 145 mcg/dL [facility] TIBC 366 250 - 400 mcg/dL [facility] ([place]) Transferrin saturation 34 20 - 50 % [facility] ([place]) Blood specimen (specimen) 01/03/2021 9:19 AM HYDROMETEOROLOGIST 01/03/2021 10:17 AM HYDROMETEOROLOGIST us Francisco Long MD LAB BLOOD ORDERABLES Final Res ult [facility] [address] [facility] [place] [address] documented in this encounter Visit Diagnoses Diagnosis Anemia, unspecified type- Primary documented in this encounter Orders Lab Orders Without Results Count Last Ordered D ate First Ordered Date CBC WITH AUTO DIFFERENTIAL 1 12/08/2020 documented in this encounter Additional Health Concerns Infection Onset Date Last Indicated Resolved Time COVID: Suspected 12/28/2020 12/28/2020 12/29/2020 7:21 AM HYDROMETEOROLOGIST Respiratory Infection (TITI), contact + droplet Comment:Automatically added due to negative COVID-19 result. 12/29/2020 12/29/2020 01/12/2021 3:0 6 AM HYDROMETEOROLOGIST documented as of this encounter Care Teams Fish Warden Relationship Specialty Start Date End Date Francisco Long MD PCP - General 02/23/17 05/15/22 Neil Ag MD PhD [address] [place] [address] Radiation Oncologist Radiation Oncology 12/17/18 [place] [address] [address] [facility] [address] [place] [address] Referring Physician General Surgery 12/17/18 [place] [address] [address] [facility] [address] [place] [address] Medical Oncologist/Air Brake Adjuster Medical Oncology 12/17/18 [place] [address] [address] Consulting Physician Gastroenterology 01/07/20 documented as of this encounter
--- OUTSIDE RECORDS SUMMARY | 2024-11-16 13:02 | XMS_ITS | Encounter Summary ---
Author Organization [facility] Medical Group Address [address] [place] [address] Care Team Providers Care Film Processor Name Role Phone Francisco Long MD Primary Care Provider [phone] Neil Ag MD PhD Unavailable [phone] [facility] Unavailable Caron Mohan MD Unavailable Pebbles Felton MD Unavailable [phone] Mounika Cruz RN Unavailable Yamileth Meade MA Unavailable [phone] Encounter Details Date Type Department Care Team (Late st Contact Info) Description 11/22/[address] [facility] Health Information Management [address] [place] [address] Scanning, Provider Social History Tobacco Use Types Packs/Day Years [...] on file 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 EGGS INSPECTOR Gender Identity Not on file Sexual Orientation Not on file documented as of this encounter Plan of Treatment Not on file documented as of this encounter Procedures Procedure Name Priority Date/Time Associated Diagnosis Comments SCAN - LABS 11/22/2020 documented in this encounter Results * SCAN - LABS (11/22/2020) us Provider Scanning Final Result documented in this encounter Visit Diagnoses Not on filedocumented in this encounter Additional Health Concerns Infection Onset Date Last Indicated Resolved Time COVID: Suspected 12/28/2020 12/28/2020 12/29/2020 7:21 AM EGGS INSPECTOR Respiratory Infection (TITI), contact + droplet Comment:Automatically added due to negative COVID-19 result. 12/29/2020 12/29/2020 01/12/2021 3:0 6 AM EGGS INSPECTOR documented as of this encounter Care Teams Film Processor Relationship Specialty Start Date End Date Francisco Long MD PCP - General 02/23/17 05/15/22 Neil Ag MD PhD [address] [place] [address] Radiation Oncologist Radiation Oncology 12/17/18 [place] [address] [address] [place] [address] Referring Physician General Surgery 12/17/18 [place] [address] [address] [place] [address] Medical Oncologist/Dry Starch Operator Medical Oncology 12/17/18 [place] [address] [address] [facility] [address] [place] [address] Consulting Physician Gastroenterology 01/07/20 Mounika Cruz RN [address] [place] [address] [address] [place] [address] Manager Of International 11/17/20 11/28/20 Yamielth Meade MA [address] [address] [place] [address] ACO Care Supervisor Logging 04/26/21 04/26/21 documented as of this encounter
--- OUTSIDE RECORDS SUMMARY | 2024-11-16 13:02 | XMS_ITS | Encounter Summary ---
Author Organization [facility] Medical [facility] Address [address] [facility] [address] [place] [address] Care Team Providers Care Deicer Tester Name Role Phone Francisco Long MD Primary Care Provider Neil Ag MD PhD Unavailable [phone] Ita estrada MD Unavailable Caron Mohan MD Unavailable Pebbles eFlton MD Unavailable [phone] Encounter Details Date Type Department Care Team (Late st Contact Info) Description 12/06/2020 Orders Only [place] [facility] 2 [facility] [address] [place] [address] Francisco Long MD [address] [place] [address] [address] [place] [address] 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) (Primary Dx) Social History Tobacco Use Types [...] on file 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 TAX STAFF ACCOUNTANT Gender Identity Not on file Sexual Orientation Not on file documented as of this encounter Progress Notes * Chitra Tyson - 12/06/2020 10:24 AM CST Added a1c for quest due 06/2021 STAFF ACCOUNTANT documented in this encounter Plan of Treatment Not on file documented as of this encounter Visit Diagnoses Diagnosis 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)- Primary documented in this encounter Orders Lab Orders Without Results Count Last Ordered D ate First Ordered Date HEMOGLOBIN A1C 1 12/06/2020 documented in this encounter Care Teams Deicer Tester Relationship Specialty Start Date End Date Francisco Long MD PCP - General 02/23/17 05/15/22 Neil Ag MD PhD [address] [place] [address] Radiation Oncologist Radiation Oncology 12/17/18 [place] [address] [facility] [address] [place], [place] [id number] Referring Physician General Surgery 12/17/18 [place] [address] [facility] [address] [place], [place] [id number] Medical Oncologist/Roll Wrapper Medical Oncology 12/17/18 [place] [address] [facility] [address] [place] [address] Consulting Physician Gastroenterology 01/07/20 documented as of this encounter
--- OUTSIDE RECORDS SUMMARY | 2024-11-16 13:02 | XMS_ITS | Encounter Summary ---
Author Organization [facility] Medical [facility] Address [address] [facility] [address] [place] [address] Care Team Providers Care Psychological Examiner Name Role Phone Francisco Long MD Primary Care Provider [phone] Neil Ag MD PhD Unavailable [phone] Ita estrada MD Unavailable Caron Mohan MD Unavailable Pebbles Felton MD Unavailable [phone] Encounter Details Date Type Department Care Team (Late st Contact Info) Description 12/08/2020 Telephone [facility] [facility] 2 [facility] [address] [place] [address] Herbert Galan MA Social History Tobacco Use Types Packs/Day [...] on file 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 EQUIPMENT TECH Gender Identity Not on file Sexual Orientation Not on file documented as of this encounter Miscellaneous Notes * Telephone Encounter - Herbert Galan MA - 12/08/2020 10:29 AM CST Pt aware PMENT TECH * Telephone Encounter - Herbert Galan MA - 12/08/2020 10:29 AM CST ----- Message from Francisco Long MD sent at 12/08/2020 7:56 AM EQUIPMENT TECH ----- Lab work looks good A1c test is much better than it was a year ago so sugars much better than it was a year ago A1c test is 5.6 basically normal blood counts revealed very mild anemia B12 levels okayfolic acid levels okay recheck CBC iron profile 8 weeks from now diagnosis anemia PMENT TECH documented in this encounter Plan of Treatment Not on file documented as of this encounter Visit Diagnoses Not on filedocumented in this encounter Care Teams Psychological Examiner Relationship Specialty Start Date End Date Francisco Long MD PCP - General 02/23/17 05/15/22 Neil Ag MD PhD [address] [place] [address] Radiation Oncologist Radiation Oncology 12/17/18 [place] [address] [address] [facility] [address] [place] [id number] Referring Physician General Surgery 12/17/18 [place] [address] [address] [facility] [address] [place] [id number] Medical Oncologist/Marble Cutter Medical Oncology 12/17/18 [place] [address] [address] Consulting Physician Gastroenterology 01/07/20 documented as of this encounter
--- OUTSIDE RECORDS SUMMARY | 2024-11-16 13:02 | XMS_ITS | Encounter Summary ---
Author Organization [facility] Medical Group Address [address] [facility] [address] [place] [address] Care Team Providers Care Marriage Counselor Minister Name Role Phone Francisco Long MD Primary Care Provider [phone] Neil Ag MD PhD Unavailable [phone] Ita Vazquez MD Unavailable Caron Mohan MD Unavailable Pebbles Felton MD Unavailable [phone] Reason for Visit * Reason Comments Hyperglycemia Encounter Details Date Type Department Care Team (Late st Contact Info) Description 12/06/2020 9:45 AM WIND ENERGY PROJECT MANAGER Office Visit [facility] 2 [facility] [address] [place] [address] Francisco Long MD [address] [place] [address] [address] [place], [place] [id number] 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) (Primary Dx); BMI 29.0-29.9,adult Social History Tobacco Use Types [...] on file 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 WIND ENERGY PROJECT MANAGER Gender Identity Not on file Sexual Orientation Not on file documented as of this encounter Last Filed Vital Signs Vital Sign Reading Time Taken Comments Blood Pressure 110/70 12/06/2020 9:57 AM WIND ENERGY PROJECT MANAGER Pulse 60 12/06/2020 9:57 AM WIND ENERGY PROJECT MANAGER Temperature - - Respiratory Rate 20 12/06/2020 9:57 AM WIND ENERGY PROJECT MANAGER Oxygen Saturation - - Inhaled Oxygen Concentration - - Weight 85.7 kg (189 lb) 12/06/2020 9:57 AM WIND ENERGY PROJECT MANAGER Height 170.2 cm (5' 7 ) 12/06/2020 9:57 AM WIND ENERGY PROJECT MANAGER Body Mass Index 29.6 12/06/2020 9:57 AM WIND ENERGY PROJECT MANAGER documented in this encounter Progress Notes * Francisco Long MD - 12/06/2020 9:45 AM CST Subjective/Objective Patient ID: Jolene Cedillo is a 74 y.o. female. Chief Complaint Hyperglycemia HPI 74-year-old seen today per our request to come in to evaluate her hyperglycemia she has had some pre diabetes in the past her sugar nonfasting was 2-125 on November 22 taken by her specialist in [place]. She denies polyuria polydipsia no blurred vision Review of Systems Vitals: 12/06/20 0957 BP: 110/70 BP Location: Left arm Patient Position: Sitting Pulse: 60 Resp: 20 Weight: 85.7 kg (189 lb) Height: 170.2 cm (5' 7 ) Physical Exam Feet: Right Foot: Monofilament exam: normal. Left Foot: Monofilament exam: normal. Lungs clear cardiovascular regular abdomen soft nontender extremities no edema no cords Homans signs negative monofilament test is normal Assessment/Plan Diagnoses and all orders for this visit: Type 2 diabetes mellitus with hyperlipidemia (CMS/[facility]) (Primary) BMI 29.0-29.9,adult Will get A1c test before next appointment she will work harder on diet exercise weight loss noting BMI of 29.60 Disease process of diabetes [place] with patient the importance of diet exercise discussed with her at length Her BMI is 29.60 she is overweight recommend carb counting and daily exercise Side effects, risks, interactions reviewed with patient. Indications for testing discussed. Any further problems to contact us. She was told what to look out for and verbalized understanding. The patient was given the opportunity to have all questions answered today and was in agreement with the plan of care. ENERGY PROJECT MANAGER ENERGY PROJECT MANAGER documented in this encounter Plan of Treatment Not on file documented as of this encounter Visit Diagnoses Diagnosis 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)- Primary BMI 29.0-29.9,adult documented in this encounter Care Teams Marriage Counselor Minister Relationship Specialty Start Date End Date Francisco Long MD PCP - General 02/23/17 05/15/22 Neil Ag MD PhD [address] [place] [address] Radiation Oncologist Radiation Oncology 12/17/18 [place] [address] [place], [place] [address] Referring Physician General Surgery 12/17/18 [place] [address] [place] [facility] [place] [id number] Medical Oncologist/Media Producer Medical Oncology 12/17/18 [place] [address] [place] [address] Consulting Physician Gastroenterology 01/07/20 documented as of this encounter
--- OUTSIDE RECORDS SUMMARY | 2024-11-16 13:02 | XMS_ITS | Encounter Summary ---
Author Organization [facility] Medical Group Address [address] [place] [address] Care Team Providers Care Cigar Patcher Name Role Phone Francisco Long MD Primary Care Provider [phone] Neil Ag MD PhD Unavailable [phone] Ita estrada MD Unavailable Caron Mohan MD Unavailable Pebbles Felton MD Unavailable [phone] Encounter Details Date Type Department Care Team (Late st Contact Info) Description 12/08/2020 Telephone [facility] [facility] 2 [facility] [address] [place] [address] Herbert Galan MA Social History [...] on file 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 GRAIN BROKER Gender Identity Not on file Sexual Orientation Not on file documented as of this encounter Miscellaneous Notes * Telephone Encounter - Yuli Lopez - 12/08/2020 10:03 AM CST Pt aware. Labs faxed to Jesika Harrison N BROKER * Telephone Encounter - Herbert Galan MA - 12/08/2020 9:37 AM CST Left message to call back N BROKER * Telephone Encounter - Herbert Galan MA - 12/08/2020 9:36 AM CST ----- Message from Francisco Long MD sent at 12/08/2020 7:56 AM GRAIN BROKER ----- Lab work looks good A1c test is much better than it was a year ago so sugars much better than it was a year ago A1c test is 5.6 basically normal blood counts revealed very mild anemia B12 levels okayfolic acid levels okay recheck CBC iron profile 8 weeks from now diagnosis anemia N BROKER documented in this encounter Plan of Treatment Not on file documented as of this encounter Visit Diagnoses Not on filedocumented in this encounter Care Teams Cigar Patcher Relationship Specialty Start Date End Date Francisco Long MD PCP - General 02/23/17 05/15/22 Neil Ag MD PhD [address] [place] [address] Radiation Oncologist Radiation Oncology 12/17/18 [place] [address] [address] Referring Physician General Surgery 12/17/18 [place] [address] [address] Medical Oncologist/Off Premise Service Representative Medical Oncology 12/17/18 [place] [address] [address] Consulting Physician Gastroenterology 01/07/20 documented as of this encounter
--- OUTSIDE RECORDS SUMMARY | 2024-11-16 13:02 | XMS_ITS | Encounter Summary ---
Author Organization [facility] Address [address] [facility] [facility] [address] [place] [address] Care Team Providers Care Development Assistant Name Role Phone Francisco Long MD Primary Care Provider [phone] Neil Ag MD PhD Unavailable [phone] Ita estrada MD Unavailable Caron Mohan MD Unavailable Pebbles Felton MD Unavailable [phone] Reason for Referral * Diagnostic Imaging (Routine) - Closed Specialty Diagnoses / Procedures Referred By Contac t Referred To Contact Diagnoses Vitamin D deficiency Screening for osteoporosis Post-menopausal Procedures Dexa Axial Skeleton Bone Density 1 or 2 Site Francisco Long MD Phone: tel: fax: [address] [address] Referral ID Status Reason Start Date Expiration Date Visits Re quested Visits Authorized [id number] Closed 11/01/2020 12/01/2021 1 1 AIGN WORKER Encounter Details Date Type Department Care Team (Late st Contact Info) Description 11/01/2020 Orders Only [facility] [address] [address] Francisco Long MD [address] [place] [address] Essential hypertension (Primary Dx); Pre-diabetes; Mixed hyperlipidemia; Vitamin D deficiency; Screening for osteoporosis; Post-menopausal; Iron deficiency anemia, unspecified iron deficiency anemia type Social History Tobacco Use Types Packs/Day [...] on file 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 Gender Identity Not on file Sexual Orientation Not on file documented as of this encounter Progress Notes * Jossue Lee MA - 11/01/2020 10:58 AM CST Printed Epic orders given to pt for [facility] AIGN WORKER documented in this encounter Plan of Treatment Not on file documented as of this encounter Procedures Procedure Name Priority Date/Time Associated Diagnosis Comments LIPID PANEL WITH REFLEX TO DIRECT LDL Routine 05/16/2021 8:33 AM CDT Essential hypertension Pre-diabetes Iron deficiency anemia, unspecified iron deficiency anemia type IRON PROFILE W/ IBC Routine 05/16/2021 8 :33 AM CDT Essential hypertension Pre-diabetes Mixed hyperlipidemia Iron deficiency anemia, unspecified iron deficiency anemia type CBC WITH AUTO DIFFERENTIAL Routine 05/16/2021 8:33 AM CDT Essential hypertension Pre-diabetes Mixed hyperlipidemia Iron deficiency anemia, unspecified iron deficiency anemia type VITAMIN D 25 HYDROXY Routine 05/16/2021 8:33 AM CDT Vitamin D deficiency COMPREHENSIVE METABOLIC PANEL Routine 05/16/2021 8:33 AM CDT Essential hypertension Pre-diabetes Mixed hyperlipidemia Iron deficiency anemia, unspecified iron deficiency anemia type documented in this encounter Results * Dexa Axial Skeleton Bone Density 1 or 2 Site (06/28/2021 9:52 AM CDT) Anatomical Region Laterality Modality Body N/A Other 06/28/2021 9:58 AM CDT Narrative 06/28/2021 9:59 AM CDT EXAM DESCRIPTION: ?? DEXA AXIAL SKELETON BONE DENSITY 1 OR MORE SITES REASON FOR STUDY: ?? 75 year old ??female with given history of postmenopausal screening. Career Technical Education Instructor/Model: ?? Archsy SL (S/N [id number]) CLINICAL INFORMATION: ??Current height: ??67 inches ? [...] AM - Electronically signed by Berry Whitfield M.D., MD: D: ??06/28/2021 9:59 AM T: ??06/28/2021 9:59 AM Report ID: [id number] Reading Location: ??[id number] Procedure Note Berry Whitfield MD - 06/28/2021 EXAM DESCRIPTION: DEXA AXIAL SKELETON BONE DENSITY 1 OR MORE SITES REASON FOR STUDY: 75 year old female with given history ofpostmenopausal screening. Career Technical Education Instructor/Model: Archsy SL (S/N [id number]) CLINICAL INFORMATION: Current height: 67 inches Maximum [...] AM - Electronically signed by Berry Whitfield M.D., MD: Report ID: [id number] Reading Location: [place] [address] Francisco Long MD IMG DXA PROCEDURES Final Resul t * (ABNORMAL) Vitamin D 25 hydroxy (05/16/2021 8:33 AM CDT) [facility] Vitamin D 25-OH 27(L) 30 - 100 ng/mL [facility] Comment: Vitamin D Status ? 25-OH Vitamin D: Deficiency: ?<20 ng/mL Insufficiency: ? 20 - 29 ng/mL Optimal: ? > or = 30 ng/mL For 25-OH Vitamin D testing on patients on D2-supplementation and patients for whom quantitation of D2 and D3 fractions is required, the [facility](TM) 25-OH VIT D, (D2,D3), LC/MS/MS is recommended: order code 83734 (patients >2yrs). See Note 1 Note 1 For additional information, please refer to http://The Old Reader.[facility] [facility]/faq/KXU928 (This link is being provided for informational/ educational purposes only.) Blood specimen (specimen) 05/16/2021 8:33 AM CDT 05/16/2021 8:34 AM CDT Narrative [facility] - 05/17/2021 7:54 AM CDT FASTING:YES FASTING: YES Francisco Long MD LAB BLOOD ORDERABLES Final Res ult [facility] [address] [place] [address] * (ABNORMAL) Lipid panel with reflex to direct LDL (05/16/2021 8:33 AM CDT) Cholesterol 197 <200 mg/dL [facility] HDL 73 > OR = 50 mg/dL [facility] Triglycerides 103 <150 mg/dL [facility] LDL 104(H) mg/dL (calc) [facility] Comment: Reference [...] LDL-C. Harry YUAN et al. RANDALL. 2013;310(19): 7790-0098 (http://education.JobSlot.[employer]/faq/YLO549) Chol/HDL ratio 2.7 <5.0 (calc) [facility] Non-HDL, (LDL+VLDL) 124 <130 mg/dL (calc) [facility] Comment: For patients with diabetes plus 1 major ASCVD risk factor, treating to a non-HDL-C goal of <100 mg/dL (LDL-C of <70 mg/dL) is considered a therapeutic option. Blood specimen (specimen) 05/16/2021 8:33 AM CDT 05/16/2021 8:34 AM CDT Narrative [facility] - 05/17/2021 7:54 AM CDT FASTING:YES FASTING: YES us Francisco Long MD LAB BLOOD ORDERABLES Final Res ult [facility] [address] [place] [address] * (ABNORMAL) Comprehensive metabolic panel (05/16/2021 8:33 AM CDT) Pathologist [facility] Glucose 151(H) 65 - 99 mg/dL [facility] Comment: ? Fasting reference interval For someone without known diabetes, a glucose value >125 mg/dL indicates that they may have diabetes and this should be confirmed with a follow-up test. BUN 18 7 - 25 mg/dL [facility] Creatinine 0.89 0.60 - 0.93 mg/dL [facility] Comment: For patients >49 years of age, the reference limit for Creatinine is approximately 13% higher for people identified as -Turkish. eGFR NON-AFR. BAHRAINI 64 > OR = 60 mL/min/1 .73m2 [facility] EGFR 74 > OR = 60 mL/min/1 .73m2 [facility] BUN/creat ratio NOT APPLICABLE 6 - 22 (calc) [facility] Sodium 141 135 - 146 mmol/L [facility] Potassium, pl 5.3 3.5 - 5.3 mmol/L [facility] Chloride 103 98 - 110 mmol/L [facility] CO2 32 20 - 32 mmol/L [facility] Calcium 9.7 8.6 - 10.4 mg/dL [facility] Protein, sr 6.0(L) 6.1 - 8.1 g/dL [facility] Albumin 3.9 3.6 - 5.1 g/dL [facility] GLOBULIN 2.1 1.9 - 3.7 g/dL (calc) [facility] Alb/glob ratio 1.9 1.0 - 2.5 (calc) [facility] Bilirubin, total 0.6 0.2 - 1.2 mg/dL [facility] Alk phos 73 37 - 153 U/L [facility] AST 16 10 - 35 U/L [facility] ALT (SGPT) 18 6 - 29 U/L [facility] Blood specimen (specimen) 05/16/2021 8:33 AM CDT 05/16/2021 8:34 AM CDT Narrative [facility] - 05/17/2021 7:54 AM CDT FASTING:YES FASTING: YES Francisco Long MD LAB BLOOD ORDERABLES Final Res ult Performing Organization Address [facility] Co de Phone Number [facility] [address] [place] [address] * Iron profile w/ IBC (05/16/2021 8:33 AM CDT) Iron 94 45 - 160 mcg/dL [facility] TIBC 340 250 - 450 mcg/dL (calc) [facility] Iron saturation 28 16 - 45 % (calc) [facility] Blood specimen (specimen) 05/16/2021 8:33 AM CDT 05/16/2021 8:34 AM CDT Narrative [facility] - 05/17/2021 7:54 AM CDT FASTING:YES FASTING: YES Francisco Long MD LAB BLOOD ORDERABLES Final Res ult Performing Organization Address City/[facility]/ZIP Co de Phone Number [facility] [address] [facility] [place] [address] * (ABNORMAL) CBC with auto differential (05/16/2021 8:33 AM CDT) WBC 4.6 3.8 - 10.8 Thousand/u L [facility] RBC, POC 5.18(H) 3.80 - 5.10 Million/uL [facility] Hgb 13.6 11.7 - 15.5 g/dL [facility] Hct 43.4 35.0 - 45.0 % [facility] MCV 83.8 80.0 - 100.0 fL [facility] MCH 26.3(L) 27.0 - 33.0 pg [facility] MCHC 31.3(L) 32.0 - 36.0 g/dL [facility] Rdw 21.1(H) 11.0 - 15.0 % [facility] Platelets 172 140 - 400 Thousand/u L [facility] MPV 9.8 7.5 - 12.5 fL [facility] Neutrophils, abs 3,560 1,500 - 7,800 cells/uL [facility] Lymphocytes, abs 598(L) 850 - 3,900 cells/uL [facility] Monocyte abs 258 200 - 950 cells/uL [facility] Eosinophils, abs 152 15 - 500 cells/uL [facility] Basophils, abs 32 0 - 200 cells/uL [facility] Neutrophils 77.4 % [facility] Lymphocyte pct 13.0 % [facility] Monocytes 5.6 % [facility] Eosinophils 3.3 % [facility] Basophils 0.7 % [facility] Blood specimen (specimen) 05/16/2021 8:33 AM CDT 05/16/2021 8:34 AM CDT Narrative [facility] - 05/17/2021 7:54 AM CDT FASTING:YES FASTING: YES Francisco Long MD LAB BLOOD ORDERABLES Final Res ult [facility] [address] [place] [address] documented in this encounter Visit Diagnoses Diagnosis Essential hypertension- Primary Unspecified essential hypertension Pre-diabetes Other abnormal glucose Mixed hyperlipidemia Vitamin D deficiency Screening for osteoporosis Special screening for osteoporosis Post-menopausal Asymptomatic postmenopausal status (age-related) (natural) Iron deficiency anemia, unspecified iron deficiency anemia type Vitamin D deficiency Screening for osteoporosis Special screening for osteoporosis Post-menopausal Asymptomatic postmenopausal status (age-related) (natural) documented in this encounter Care Teams Development Assistant Relationship Specialty Start Date End Date Francisco Long MD PCP - General 02/23/17 05/15/22 Neil Ag MD PhD [address] [place] [address] Radiation Oncologist Radiation Oncology 12/17/18 [place] [address] [place], [place] [id number] Referring Physician General Surgery 12/17/18 [place] [address] [place], [place] [id number] Medical Oncologist/Manager User Experience Medical Oncology 12/17/18 [place] [address] [place], [place] [id number] Consulting Physician Gastroenterology 01/07/20 documented as of this encounter
--- OUTSIDE RECORDS SUMMARY | 2024-11-16 13:02 | XMS_ITS | Encounter Summary ---
Author Organization [facility] Address [address] [place] [address] Care Team Providers Care Market Development Specialist Name Role Phone Francisco Long MD Primary Care Provider [phone] Neil Ag MD PhD Unavailable [phone] Ita Vazquez MD Unavailable Caron Mohan MD Unavailable [phone] Pebbles Felton MD Unavailable [phone] Encounter Details Date Type Department Care Team (Late st Contact Info) Description 11/15/2020 Telephone [facility] [address] [facility] [address] [place] [address] Francisco Long MD [address] [place] [address] [address] [place] [address] Social History Tobacco Use Types [...] on file 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 The friend became symptomatic 11/11 and received positive covid results today. She is currently asymptomatic. Pt was advised to quarantine due to exposure. MANAGER documented in this encounter Plan of Treatment Not on file documented as of this encounter Visit Diagnoses Not on filedocumented in this encounter Care Teams Market Development Specialist Relationship Specialty Start Date End Date Francisco Long MD PCP - General 02/23/17 05/15/22 Neil Ag MD PhD [address] [place] [address] Radiation Oncologist Radiation Oncology 12/17/18 [place] [address] [facility] [address] [facility] [place] [id number] Referring Physician General Surgery 12/17/18 [place] [address] [facility] [address] [place] [address] Medical Oncologist/Yarn Sizer Medical Oncology 12/17/18 [place] [address] [facility] [address] [place], [place] [id number] Consulting Physician Gastroenterology 01/07/20 documented as of this encounter
--- OUTSIDE RECORDS SUMMARY | 2024-11-16 13:03 | XMS_ITS | Encounter Summary ---
Author Organization [facility] Address [address] [place] [address] Care Team Providers Care Ice House Supervisor Name Role Phone Francisco Long MD Primary Care Provider [phone] Neil Ag MD PhD Unavailable [phone] [facility] Unavailable Caron Mohan MD Unavailable Pebbles Felton MD Unavailable [phone] Reason for Referral * Diagnostic Imaging (Routine) - Closed Specialty Diagnoses / Procedures Referred By Contac t Referred To Contact Procedures XR Chest Pa Lateral 2 Views [facility] [address] [place] [address] [address] [place] [address] Phone: tel: fax: Referral ID Status Reason Start Date Expiration Date Visits Re quested Visits Authorized [id number] Closed 09/03/2020 10/03/2021 1 1 Encounter Details Date Type Department Care Team (Late st Contact Info) Description 09/03/2020 Orders Only [facility] [address] [place] [address] [address] [place] [address] Annabelle Dumont MD [facility] [place] [address] Social History Tobacco Use Types Packs/Day Years Used Date Smoking Tobacco: Never Smokeless Tobacco: Never Alcohol Use Standard Drinks/Week Comments No 0 (1 standard drink = 0.6 oz pur e alcohol) Overall Financial Resource Strain (CARDIA) Answe r Date Recorded Difficulty of Paying Living Expenses Not hard at all 12/05/2019 PHQ-2 Answer Date Recorded PHQ-2 Score 2 07/01/2020 Hunger Vital Sign Answer Date Recorded Worried [...] file 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 Gender Identity Not on file Sexual Orientation Not on file documented as of this encounter Plan of Treatment Not on file documented as of this encounter Procedures Procedure Name Priority Date/Time Associated Diagnosis Comments XR CHEST PA LATERAL 2 VIEWS Schedule Routine, Read Routine (OP Routine) 08/31/2020 documented in this encounter Results * XR Chest Pa Lateral 2 Views (08/31/2020) Anatomical Region Laterality Modality Body, Chest N/A Radiographic Elva ging us Historical Provider MD MCNAIR XR PROCEDURES Final R esult documented in this encounter Visit Diagnoses Not on filedocumented in this encounter Care Teams Ice House Supervisor Relationship Specialty Start Date End Date Francisco Long MD PCP - General 02/23/17 05/15/22 Neil Ag MD PhD 6 [place] [address] Radiation Oncologist Radiation Oncology 12/17/18 [place] [address] [facility] [address] [place] [address] Referring Physician General Surgery 12/17/18 [place] [address] [address] [facility] [address] [place] [address] Medical Oncologist/Solar Installation Manager Medical Oncology 12/17/18 [place] [address] [address] [facility] [address] [place] [id number] Consulting Physician Gastroenterology 01/07/20 documented as of this encounter
--- OUTSIDE RECORDS SUMMARY | 2024-11-16 13:03 | XMS_ITS | Encounter Summary ---
Author Organization [facility] Address [address] [facility] [place] [address] Care Team Providers Care Barrel Dedenting Machine Operator Name Role Phone Francisco Long MD Primary Care Provider Neil Ag MD PhD Unavailable [phone] Ita Vazquez MD Unavailable Caron Mohan MD Unavailable Pebbles Felton MD Unavailable [phone] Encounter Details Date Type Department Care Team (Late st Contact Info) Description 09/24/2020 Telephone [facility] [address] [facility] [address] [place] [address] Francisco Long MD [address] [place] [address] [address] [place] [address] Social History Tobacco Use Types [...] on file 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 Was having a lot of muscle aches and pain. That has stopped. She has office visit on 11/01/2020 documented in this encounter Plan of Treatment Not on file documented as of this encounter Visit Diagnoses Not on filedocumented in this encounter Care Teams Barrel Dedenting Machine Operator Relationship Specialty Start Date End Date Francisco Long MD PCP - General 02/23/17 05/15/22 Neil Ag MD PhD 6 [place] [address] Radiation Oncologist Radiation Oncology 12/17/18 [place] [address] [facility] [address] [place] [address] Referring Physician General Surgery 12/17/18 [place] [address] [address] [facility] [address] [place] [address] Medical Oncologist/Biofuels Plant Manager Medical Oncology 12/17/18 [place] [address] [address] [facility] [address] [place] [address] Consulting Physician Gastroenterology 01/07/20 documented as of this encounter
--- OUTSIDE RECORDS SUMMARY | 2024-11-16 13:03 | XMS_ITS | Encounter Summary ---
Author Organization [facility] Address [address] [facility] [address] [place] [address] Care Team Providers Care Lube Man Name Role Phone Francisco Long MD Primary Care Provider [phone] Neil Ag MD PhD Unavailable [phone] Ita estrada MD Unavailable Caron Mohan MD Unavailable Pebbles Felton MD Unavailable [phone] Encounter Details Date Type Department Care Team (Late st Contact Info) Description 07/02/2020 Orders Only [facility] [address] [facility] [address] [place] [address] Francisco Long MD [address] [place] [address] [address] [place] [address] Social History Tobacco Use Types [...] file 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 Gender Identity Not on file Sexual Orientation Not on file documented as of this encounter Plan of Treatment Not on file documented as of this encounter Visit Diagnoses Not on filedocumented in this encounter Care Teams Lube Man Relationship Specialty Start Date End Date Francisco Long MD PCP - General 02/23/17 05/15/22 Neil Ag MD PhD 6 [place] [address] Radiation Oncologist Radiation Oncology 12/17/18 [place] [address] [facility] 120 [place], [place] [address] Referring Physician General Surgery 12/17/18 [place] [address] [address] Medical Oncologist/Narrow Gauge Engineer Medical Oncology 12/17/18 [place] [address] [phone] Consulting Physician Gastroenterology 01/07/20 documented as of this encounter
--- OUTSIDE RECORDS SUMMARY | 2024-11-16 13:03 | XMS_ITS | Encounter Summary ---
Author Organization [facility] Address [address] [facility] [address] [place] [address] Care Team Providers Care Manager Of Case Management Name Role Phone Francisco Long MD Primary Care Provider [phone] Neil Ag MD PhD Unavailable [phone] [facility] MD Unavailable Caron Mohan MD Unavailable Pebbles Felton MD Unavailable [phone] Reason for Referral * Diagnostic Imaging (Routine) - Closed Specialty Diagnoses / Procedures Referred By Contac t Referred To Contact Procedures XR Chest Pa Lateral 2 Views [facility] [address] [place] [address] [address] [place] [address] Phone: tel: fax: Referral ID Status Reason Start Date Expiration Date Visits Re quested Visits Authorized [id number] Closed 09/09/2020 10/09/2021 1 1 Encounter Details Date Type Department Care Team (Late st Contact Info) Description 09/09/2020 Orders Only [facility] [address] [place] [address] [address] [place] [address] Annabelle Dumont MD [facility] [place] [address] Social History Tobacco Use Types [...] on file 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 Gender Identity Not on file Sexual [...] on filedocumented in this encounter Care Teams Manager Of Case Management Relationship Specialty Start Date End Date Francisco Long MD PCP - General 02/23/17 05/15/22 Neil Ag MD PhD 6 [place] [address] Radiation Oncologist Radiation Oncology 12/17/18 [place] [address] [facility] [address] [place] [address] Referring Physician General Surgery 12/17/18 [place] [address] [address] [facility] 120 [place] [address] Medical Oncologist/Marketing Communications Assistant Medical Oncology 12/17/18 [place] [address] [address] [facility] 120 [place] [id number] Consulting Physician Gastroenterology 01/07/20 documented as of this encounter
--- OUTSIDE RECORDS SUMMARY | 2024-11-16 13:04 | XMS_ITS | Encounter Summary ---
Author Organization [facility] Medical Group Address [address] [place] [address] Care Team Providers Care Kraft Digester Operator Name Role Phone Francisco Long MD Primary Care Provider [phone] Neil Ag MD PhD Unavailable [phone] tIa estrada MD Unavailable Caron Mohan MD Unavailable Pebbles Felton MD Unavailable [phone] Reason for Visit * Reason Comments Thrombophilia 1 month f/u Encounter Details Date Type Department Care Team (Late st Contact Info) Description 01/30/2020 10:00 AM DENTAL LABORATORY TECHNICIAN Office Visit [facility] [address] [facility] [address] [place] [address] Francisco Long MD [address] [place] [address] [address] [place] [address] Bilateral pulmonary embolism (CMS/HCC) (Primary Dx); Body mass index (bmi) 29.0-29.9, adult; Essential hypertension; Iron deficiency anemia due to chronic blood [...] PHQ-2 Answer Date Recorded PHQ-2 Score 0 07/17/2019 Hunger Vital Sign Answer Date Recorded Worried [...] on file 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 DENTAL LABORATORY TECHNICIAN Gender Identity Not on file Sexual Orientation Not on file documented as of this encounter Last Filed Vital Signs Vital Sign Reading Time Taken Comments Blood Pressure 140/70 01/30/2020 9:53 AM DENTAL LABORATORY TECHNICIAN Pulse 60 01/30/2020 9:53 AM DENTAL LABORATORY TECHNICIAN Temperature - - Respiratory Rate 20 01/30/2020 9:53 AM DENTAL LABORATORY TECHNICIAN Oxygen Saturation - - Inhaled Oxygen Concentration - - Weight 84.8 kg (187 lb) 01/30/2020 9:53 AM DENTAL LABORATORY TECHNICIAN Height 170.2 cm (5' 7 ) 01/30/2020 9:53 AM DENTAL LABORATORY TECHNICIAN Body Mass Index 29.29 01/30/2020 9:53 AM DENTAL LABORATORY TECHNICIAN documented in this encounter Progress Notes * Francisco Long MD - 01/30/2020 10:00 AM CST Subjective/Objective Patient ID: Jolene Cedillo is a 74 y.o. female. Chief Complaint Thrombophilia (1 month f/u) Pulmonary embolus history of deep venous thrombosis questionable thrombophilia HPI 74-year-old female seen today with her several years ago she had orthopedics procedure complicated by postop deep VT treated successfully with anticoagulation for few months no problems sincethat time she subsequently has a history of uterine cancer and breast cancer treated successfully so far is on medication that may increase her risk of thromboembolic disease but this was recently discussed with her breast cancer specialist they wish her to stay on the medication In November of this year patient developed shortness of breath was found to have a pulmonary emboluson CT examination no evidence of deep venous thrombosis noted on Doppler examination placed on anticoagulation therapy since that time studies for thrombophilia unrevealing to present during her treatment with the Eliquis the patient did develop a suspected GI bleed hemoglobin dropping down to appro ximately 7 requiring 2 units of packed red blood cells and 3 day hospitalization We have monitor her hemoglobin since that time we had lengthy discussion with her today regarding the need for possible Hematology consultation for possible thrombophilia of undetermined etiology They understand we would like to be able to stop her anticoagulation therapy in the future after successful completion of her pulmonary embolus therapy specially in lieu of her recent GI bleed ldReview of Systems she recently received IV iron due to her entire his to p.o. iron 900 mg total her hemoglobin hematocrit will be checked Sunday and she will call for results Vitals: 01/30/20 0953 BP: 140/70 BP Location: Left arm Patient Position: Sitting Pulse: 60 Resp: 20 Weight: 84.8 kg (187 lb) Height: 170.2 cm (5' 7 ) Physical Exam She is pleasant no distress neck is supple lungs clear cardiovascular regular abdomen soft nontender Assessment/Plan Diagnoses and all orders for this visit: Bilateral pulmonary embolism (CMS/HCC) (Primary) Continue Eliquis Body mass index (bmi) 29.0-29.9, adult Work will harder on diet exercise Essential hypertension Doing well with current therapy Iron deficiency anemia due to chronic blood loss She completed 900 mg IV iron over the last 3 weeks monitor blood counts monitor iron levels see back in 1 month patient will consider Hematology consultation at spring which is closer [facility] Side effects, risks, interactions reviewed with patient. Indications for testing discussed. Any further problems to contact us. She was told what to look out for and verbalized understanding. The patient was given the opportunity to have all questions answered today and was in agreement with the plan of care. AL LABORATORY TECHNICIAN documented in this encounter Plan of Treatment Not on file documented as of this encounter Visit Diagnoses Diagnosis Bilateral pulmonary embolism (CMS/HCC) (HCC)- Primary Other pulmonary embolism and infarction Body mass index (bmi) 29.0-29.9, adult Essential hypertension Unspecified essential hypertension Iron deficiency anemia due to chronic blood loss Iron deficiency anemia secondary to blood loss (chronic) documented in this encounter Care Teams Kraft Digester Operator Relationship Specialty Start Date End Date Francisco Long MD PCP - General 02/23/17 05/15/22 Neil Ag MD PhD [address] [place] [address] Radiation Oncologist Radiation Oncology 12/17/18 [place] [address] [address] [facility] [address] [facility] [place] [id number] Referring Physician General Surgery 12/17/18 [place] [id number] [address] [facility] [address] [facility] [place] [id number] Medical Oncologist/Mortarman Medical Oncology 12/17/18 [place] [address] [address] [facility] [address] [place] [id number] Consulting Physician Gastroenterology 01/07/20 documented as of this encounter
--- OUTSIDE RECORDS SUMMARY | 2024-11-16 13:04 | XMS_ITS | Encounter Summary ---
Author Organization [facility] Medical Group Address [address] [place] [address] Care Team Providers Care Chamfering Machine Operator Name Role Phone Francisco Long MD Primary Care Provider Neil Ag MD PhD Unavailable [phone] Ita Vazquez MD Unavailable Caron Mohan MD Unavailable Pebbles Felton MD Unavailable [phone] Encounter Details Date Type Department Care Team (Late st Contact Info) Description 02/13/2020 Telephone [facility] [address] [facility] [address] [place] [address] Francisco Long MD [address] [place] [address] [address] [place] [address] Social History Tobacco Use Types [...] on file 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 BUCKLE FRAME SHAPER Gender Identity Not on file Sexual Orientation Not on file documented as of this encounter Miscellaneous Notes * Telephone Encounter - Josi Umaña MA - 02/13/2020 4:10 PM CDT Pt aware * Telephone Encounter - Josi Umaña MA - 02/13/2020 4:10 PM CDT ----- Message from Francisco Long MD sent at 02/13/2020 12:44 PM CDT ----- Okay to leave a message hemoglobin up to 11.6 11.7 is normal documented in this encounter Plan of Treatment Not on file documented as of this encounter Visit Diagnoses Not on filedocumented in this encounter Care Teams Chamfering Machine Operator Relationship Specialty Start Date End Date Francisco Long MD PCP - General 02/23/17 05/15/22 Neil Ag MD PhD [address] [place] [address] Radiation Oncologist Radiation Oncology 12/17/18 [place] [address] [address] [place] [id number] Referring Physician General Surgery 12/17/18 [place] [address] [address] [facility] [[email or web address] [address] [place] [id number] Medical Oncologist/Certified Surgical Tech/First Assistant Medical Oncology 12/17/18 [place] [address] [address] [place] [address] Consulting Physician Gastroenterology 01/07/20 documented as of this encounter
--- OUTSIDE RECORDS SUMMARY | 2024-11-16 13:04 | XMS_ITS | Encounter Summary ---
Author Organization [facility] Healthcare Address [address] [place] [address] Care Team Providers Care Resident Care Aid Name Role Phone Francisco Long MD Primary Care Provider Neil Ag MD PhD Unavailable [phone] Ita Vazquez MD Unavailable Caron Mohan MD Unavailable Pebbles Felton MD Unavailable [phone] Encounter Details Date Type Department Care Team (Late st Contact Info) Description 05/27/2020 10:30 AM CDT Office Visit [facility] Radiation Oncology [address] [place] [address] Neil Ag MD PhD [address] [place] [address] Malignant neoplasm of upper-inner quadrant of left [...] on file 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 COLOR ARTIST Gender Identity Not on file Sexual Orientation Not on file documented as of this encounter Last Filed Vital Signs Vital Sign Reading Time Taken Comments Blood Pressure 163/91 05/27/2020 10:36 AM CDT Pulse 69 05/27/2020 10:36 AM CDT Temperature 36.5 ??C (97.7 ??F) 05/27/2020 10:36 AM C DT Respiratory Rate 20 05/27/2020 10:36 AM CDT Oxygen Saturation 99% 05/27/2020 10:36 AM CDT Inhaled Oxygen Concentration - - Weight 83.6 kg (184 lb 6.4 oz) 05/27/2020 10:36 AM CDT Height - - Body Mass Index 28.88 01/30/2020 9:53 AM COLOR ARTIST documented in this encounter Patient Instructions * Patient Instructions* Neil Ag MD PhD - 05/27/2020 10:30 AM CDT We know that there are many questions [...] often with soap and water, or alcohol-based hand-airconditioning plant operator - For the most current and up to date information, we would recommend accessing the following link for the Centers for Disease Control (CDC): www.cdc.gov/coronavirus For patients who are starting radiation therapy or currently receiving radiation: - If you have any symptoms such as fever, cough, shortness of breath, or any other flu-like symptoms, please call the hospital multiple pressure riveter operator at [phone] and ask for the [facility] hotline. Hotline personnel will screen the patients [...] contact with you to assist with rescheduling documented in this encounter Discharge Disposition Disposition Code Departure Means Destination Discharge to home or self care documented in this encounter Progress Notes * Neil Ag MD PhD - 05/27/2020 10:30 AM CDT Staff Physician: Neil Ag MD PhD Referring Physician: Patient Care Team: Ita Vazquez MD as Referring Physician (General Surgery) Date of Service: 05/27/2020 RADIATION ONCOLOGY FOLLOW UP NOTE IDENTIFYING DATA: Cancer Staging Malignant neoplasm of upper-inner quadrant of left breast in female, estrogen receptor positive (CMS/HCC) Staging form: Breast, AJCC 8th Edition - Pathologic stage from 12/17/2018: Stage IA (pT1b, pN1mi(sn), cM0, G2, ER: Positive, NY: Positive, HER2: Negative) - Signed by Neil Ag MD PhD on 12/17/2018 Treatment Intent: adjuvant Jolene Cedillo is a 74 y.o. 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 She is currently on letrozole. She was last seen in our office on 08/11/2019. INTERVAL HISTORY: Since her last follow-up, the patient has been doing well with regard to her treated left breast. She denies any interval skin changes or any pain in that left breast or any pain otherwise (0/10). She denies any headache, nausea, vomiting, vision changes, or any focal numbness or weakness. She had a bilateral diagnostic mammogram at [facility] on 11/13/2019 which showed no suspicious findings (BI-RADS2). She continues on letrozole and is tolerating this relatively well. In November of this year, shedeveloped some relatively new onset significant shortness of breath and some associated cough, and as part of the workup underwent a CT of the chest with PE protocol which identified bilateral pulmona ry emboli with moderate clot burden and borderline right heart strain. She was initiated on anticoagulation. Doppler studies on 12/11/2019 did not identify any deep vein thrombosis. She also underwent EGD and colonoscopy on 01/07/2020 when she was found to be severely anemic with occult blood in her stool. This showed no evidence of active bleed, and gastritis and polyps biopsied were benign. Curr ently, she denies any cough or shortness of breath or hemoptysis. She otherwise denies any changes to her medical history. PREVIOUS RADIATION: 4256 cGy [...] hematologic/lymphatic, or immunologic systems. PHYSICAL EXAMINATION: BP 163/91 Pulse 69 Temp 36.5 ??C (97.7 ??F) Resp 20 Wt 83.6 kg (184 lb 6.4 oz) SpO2 99% BMI 28.88 kg/m?? Pain Score and Location 05/27/20 1036 PainSc: 0-No pain ECOG Performance: 1 Physical Exam Constitutional: General: She is not [...] distress. Breath sounds: Normal breath sounds. No wheezing. Chest: Breasts: Right: No swelling, bleeding, inverted nipple, mass, nipple discharge, skin change or tenderness. Left: Skin change present. No swelling, bleeding, inverted nipple, mass, nipple discharge or tenderness. Comments: Left breast with continued residual hyperpigmentation, particularly in the areola. Otherwise no erythema, desquamation, or telangiectasia. Some generalized fibrosis of the treated left breast, but no masses palpated in the left or right breast. Abdominal: General: There is no distension. Palpations: [...] Judgment: Judgment normal. DIAGNOSTIC REPORTS REVIEWED: Imaging: I personally reviewed the imaging and pertinent findings as per interval history. Laboratory/Pathology: I personally reviewed the laboratory and pathology values and pertinent findings as per interval history. 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 She is currently on letrozole. With regard to her breast cancer, she continues to have some relatively stable hyperpigmentation with some post treatment fibrosis in the left breast, but otherwise has no clinical or radiographic evidence of disease progression at this time. She has had interval development of bilateral pulmonary embolism, but is currently on anticoagulation being managed by her primary care physician. PLAN: Return to clinic in 6 months. Continue close follow up with her other healthcare providers. RAD ONC PAIN PLAN: The patient is not currently having any pain that requires changes in pain management. My total face to face time with this patient during this office visit: 15 minutes DISEASE STATUS/TOXICITY: Disease Status: Controlled New metachronous cancer?: No documented in this encounter Plan of Treatment Not on file documented as of this encounter Visit Diagnoses Diagnosis Malignant neoplasm of upper-inner quadrant of left breast in female, estrogen receptor positive (HCC)- Primary documented in this encounter Care Teams Resident Care Aid Relationship Specialty Start Date End Date Francisco Long MD PCP - General 02/23/17 05/15/22 Neil Ag MD PhD [address] [place] [address] Radiation Oncologist Radiation Oncology 12/17/18 [place] [address] [facility] [address] [place] [address] Referring Physician General Surgery 12/17/18 [place] [address] [facility] [address] [place], [place] [phone] Medical Oncologist/Penology Teacher Medical Oncology 12/17/18 [place] [address] [address] [facility] [address] [place] [address] Consulting Physician Gastroenterology 01/07/20 documented as of this encounter
--- OUTSIDE RECORDS SUMMARY | 2024-11-16 13:04 | XMS_ITS | Encounter Summary ---
Author Organization [facility] Healthcare Address [address] [place] [address] Care Team Providers Care Mental Hygiene Consultant Name Role Phone Francisco Long MD Primary Care Provider [phone] Neil Ag MD PhD Unavailable [phone] Ita Vazquez MD Unavailable Caron Mohan MD Unavailable Pebbles Felton MD Unavailable [phone] Reason for Visit * Reason Comments OP Infusion VENOFER * Episode Based Medications (Routine) - Closed Specialty Diagnoses / Procedures Referred By Contac t Referred To Contact Diagnoses Iron deficiency anemia due to chronic blood loss Francisco Long MD [address] [place] [address] [address] [place] [address] Phone: tel: fax: [facility] [address] [place] [address] [place] [address] Phone: tel: Referral ID Status Reason Start Date Expiration Date Visits Re quested Visits Authorized [id number] Closed 01/09/2020 07/20/2021 1 1 Encounter Details Date Type Department Care Team (Late st Contact Info) Description 01/29/2020 11:00 AM PLUSH BRUSHER Infusion [facility] [address] [facility] [address] [place] [address] Francisco Long MD [address] [facility] [address] [place] [address] Iron deficiency anemia due to chronic blood [...] on file 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 PLUSH BRUSHER Gender Identity Not on file Sexual Orientation Not on file documented as of this encounter Last Filed Vital Signs Vital Sign Reading Time Taken Comments Blood Pressure 136/65 01/29/2020 11:02 AM PLUSH BRUSHER Pulse 74 01/29/2020 11:02 AM PLUSH BRUSHER Temperature 36.9 ??C (98.4 ??F) 01/29/2020 11:[address] Respiratory Rate 20 01/29/2020 11:02 AM PLUSH BRUSHER Oxygen Saturation 96% 01/29/2020 11:02 AM PLUSH BRUSHER Inhaled Oxygen Concentration - - Weight - - Height - - Body Mass Index - - documented in this encounter Discharge Disposition Disposition Code Departure Means Destination Discharge to home or self care documented in this encounter Nursing Notes * Natalie Palmer RN - 01/29/2020 11:00 AM CST PATIENT ARRIVED FOR HER THIRD INFUSION OF VENOFER PER DR. LONG. ASSESSMENT NOTED. IV STARTED [id number] PER HER RIGHT AC. IRON ADMINISTERED CHARTED IN JAN. PATIENT TOLERATED INFUSION WITHOUT ANY ADVERSE EFFECTS. IV DC'D AND PATIENT DISCHARGED IN NO APPARENT DISTRESS. H BRUSHER documented in this encounter Plan of Treatment [...] mL/hr, Administer over 90 Minutes, Once, On Piedad 01/29/20 at 1130, For 1 doseIndications:Iron deficiency anemia due to chronic blood loss New Bag 01/29/2020 11:57 AM PLUSH BRUSHER 300 mg 176.7 mL/hr sodium chloride 0.9% flush 10 mL 10 mL, intravenous, As needed, line care, Starting on Piedad 01/29/20 at 1053, Flush pre and post IV catheter use.Indications:Iron deficiency anemia due to chronic blood loss Given 01/29/2020 11:57 AM PLUSH BRUSHER 10 mL documented in this encounter Care Teams Mental Hygiene Consultant Relationship Specialty Start Date End Date Francisco Long MD PCP - General 02/23/17 05/15/22 Neil Ag MD PhD [address] [place] [address] Radiation Oncologist Radiation Oncology 12/17/18 [place] [address] [facility] [address] [place] [address] Referring Physician General Surgery 12/17/18 [place] [address] [facility] [address] [place], [place] [id number] Medical Oncologist/School Bus Driver Medical Oncology 12/17/18 [place] [address] [facility] [address] [place] [address] Consulting Physician Gastroenterology 01/07/20 documented as of this encounter
--- OUTSIDE RECORDS SUMMARY | 2024-11-16 13:04 | XMS_ITS | Encounter Summary ---
Author Organization [facility] Address [address] [place] [address] Care Team Providers Care Fruit Bar Maker Name Role Phone Francisco Long MD Primary Care Provider [phone] Neil Ag MD PhD Unavailable [phone] Ita estrada MD Unavailable Caron Mohan MD Unavailable [phone] Pebbles Felton MD Unavailable [phone] Encounter Details Date Type Department Care Team (Late st Contact Info) Description 06/21/2020 Orders Only [facility] 2 [facility] [address] [place] [address] Francisco Long MD [address] [place] [address] [address] [place] [address] Social History Tobacco Use Types [...] on file 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 Gender Identity Not on file Sexual Orientation Not on file documented as of this encounter Plan of Treatment Not on file documented as of this encounter Procedures Procedure Name Priority Date/Time Associated Diagnosis Comments LIPID PANEL WITH REFLEX TO DIRECT LDL Routine 06/21/2020 8:21 AM CDT IRON PROFILE W/ IBC Routine 06/21/2020 8 :21 AM CDT URINALYSIS AND REFLEX TO MICROSCOPIC Routine 06/21/2020 8:21 AM CDT CBC WITH AUTO DIFFERENTIAL Routine 06/21/2020 8:21 AM CDT VITAMIN D 25 HYDROXY Routine 06/21/2020 8:21 AM CDT FERRITIN Routine 06/21/2020 8:21 AM CDT COMPREHENSIVE METABOLIC PANEL Routine 06/21/2020 8:21 AM CDT documented in this encounter Results * (ABNORMAL) Vitamin D 25 hydroxy (06/21/2020 8:21 AM CDT) Vitamin D 25-OH 23(L) 30 - 100 ng/mL [facility] Comment: Vitamin D Status ? 25-OH Vitamin D: Deficiency: ?<20 ng/mL Insufficiency: ? 20 - 29 ng/mL Optimal: ? > or = 30 ng/mL For 25-OH Vitamin D testing on patients on D2-supplementation and patients for whom quantitation of D2 and D3 fractions is required, the [facility]() 25-OH VIT D, (D2,D3), LC/MS/MS is recommended: order code 28547 (patients >2yrs). See Note 1 Note 1 For additional information, please refer to http://orderbird AG.WorkHands/faq/CYC420 (This link is being provided for informational/ educational purposes only.) 06/21/2020 8:21 AM CDT 06/21/2020 8:25 AM CDT Narrative [facility] - 06/22/2020 7:12 AM CDT FASTING:YES FASTING: YES us Francisco Long MD LAB BLOOD ORDERABLES Final Res ult Performing Organization Address [facility]/ZIP Co de Phone Number [facility] [address] [place] [address] * Ferritin (06/21/2020 8:21 AM CDT) Ferritin 104 16 - 288 ng/mL [email or web address] 06/21/2020 8:21 AM CDT 06/21/2020 8:25 AM CDT Narrative [facility] - 06/22/2020 7:12 AM CDT FASTING:YES FASTING: YES Francisco Long MD LAB BLOOD ORDERABLES Final Res ult Performing Organization Address [facility] Co de Phone Number [email or web address] [address] [place] [address] * (ABNORMAL) Comprehensive metabolic panel (06/21/2020 8:21 AM CDT) Glucose 127(H) 65 - 99 mg/dL [facility] Comment: ? Fasting reference interval For someone without known diabetes, a glucose value >125 mg/dL indicates that they may have diabetes and this should be confirmed with a follow-up test. BUN 18 7 - 25 mg/dL [facility] Creatinine 0.99(H) 0.60 - 0.93 mg/dL [facility] Comment: For patients >49 years of age, the reference limit for Creatinine is approximately 13% higher for people identified as -Bangladeshi. eGFR NON-AFR. NIGERIAN 57(L) > OR = 60 mL/min/1. 73m2 [facility] EGFR 66 > OR = 60 mL/min/1. 73m2 [facility] BUN/creat ratio 18 6 - 22 (calc) [facility] Sodium 142 135 - 146 mmol/L [facility] Potassium, pl 4.5 3.5 - 5.3 mmol/L [facility] Chloride 105 98 - 110 mmol/L [facility] CO2 30 20 - 32 mmol/L [facility] Calcium 9.2 8.6 - 10.4 mg/dL [facility] Protein, sr 6.1 6.1 - 8.1 g/dL [facility] Albumin 4.0 3.6 - 5.1 g/dL [facility] GLOBULIN 2.1 1.9 - 3.7 g/dL (calc) [facility] Alb/glob ratio 1.9 1.0 - 2.5 (calc) [facility] Bilirubin, total 0.4 0.2 - 1.2 mg/dL [facility] Alk phos 71 37 - 153 U/L [facility] AST 27 10 - 35 U/L [facility] ALT (SGPT) 29 6 - 29 U/L [facility] 06/21/2020 8:21 AM CDT 06/21/2020 8:25 AM CDT Narrative [facility] - 06/22/2020 7:12 AM CDT FASTING:YES FASTING: YES us Francisco Long MD LAB BLOOD ORDERABLES Final Res ult [facility] [address] [place] [address] * (ABNORMAL) Iron profile w/ IBC (06/21/2020 8:21 AM CDT) Iron 40(L) 45 - 160 mcg/dL [facility] TIBC 322 250 - 450 mcg/dL (calc) [facility] Iron saturation 12(L) 16 - 45 % (calc) [facility] 06/21/2020 8:21 AM CDT 06/21/2020 8:25 AM CDT Narrative [facility] - 06/22/2020 7:12 AM CDT FASTING:YES FASTING: YES Francisco Long MD LAB BLOOD ORDERABLES Final Res ult [facility] [address] [facility] [place] [address] * (ABNORMAL) Lipid panel with reflex to direct LDL (06/21/2020 8:21 AM CDT) Cholesterol 235(H) <200 mg/dL [facility] HDL 56 > OR = 50 mg/dL [facility] Triglycerides 122 <150 mg/dL [facility] LDL 155(H) mg/dL (calc) [facility] Comment: Reference [...] LDL-C. Harry SS et al. RANDALL. 2013;310(19): 1695-7139 (http://education.Virtual View App.Digital Legends/faq/FQU303) Chol/HDL ratio 4.2 <5.0 (calc) [facility] Non-HDL, (LDL+VLDL) 179(H) <130 mg/dL (calc) [facility] Comment: For patients with diabetes plus 1 major ASCVD risk factor, treating to a non-HDL-C goal of <100 mg/dL (LDL-C of <70 mg/dL) is considered a therapeutic option. 06/21/2020 8:21 AM CDT 06/21/2020 8:25 AM CDT Narrative [facility] - 06/22/2020 7:12 AM CDT FASTING:YES FASTING: YES us Francisco Long MD LAB BLOOD ORDERABLES Final Res ult [facility] [address] [place] [phone] * (ABNORMAL) CBC with auto differential (06/21/2020 8:21 AM CDT) WBC 5.2 3.8 - 10.8 Thousand/u L [facility] RBC, POC 4.97 3.80 - 5.10 Million/uL [facility] Hgb 13.1 11.7 - 15.5 g/dL [facility] Hct 42.1 35.0 - 45.0 % [facility] MCV 84.7 80.0 - 100.0 fL [facility] MCH 26.4(L) 27.0 - 33.0 pg [facility] MCHC 31.1(L) 32.0 - 36.0 g/dL [facility] Rdw 16.3(H) 11.0 - 15.0 % [facility] Platelets 190 140 - 400 Thousand/u L [facility] MPV 9.9 7.5 - 12.5 fL [facility] Neutrophils, abs 4,098 1,500 - 7,800 cells/uL [facility] Lymphocytes, abs 614(L) 850 - 3,900 cells/uL [facility] Monocyte abs 328 200 - 950 cells/uL [facility] Eosinophils, abs 130 15 - 500 cells/uL [facility] Basophils, abs 31 0 - 200 cells/uL [facility] Neutrophils 78.8 % [facility] Lymphocyte pct 11.8 % [facility] Monocytes 6.3 % [facility] Eosinophils 2.5 % [facility] Basophils 0.6 % [facility] 06/21/2020 8:21 AM CDT 06/21/2020 8:25 AM CDT Narrative [facility] - 06/22/2020 7:12 AM CDT FASTING:YES FASTING: YES Francisco Long MD LAB BLOOD ORDERABLES Final Res ult Performing Organization Address [facility] de Phone Number [facility] [address] [place] [phone] * Urinalysis reflex to microscopic (06/21/2020 8:21 AM CDT) Color, ur YELLOW YELLOW [facility] Appearance, ur CLEAR CLEAR [facility] Specific gravity 1.018 1.001 - 1.035 [facility] pH, ur 5.5 5.0 - 8.0 [facility] Glucose, ur NEGATIVE NEGATIVE [facility] Bilirubin, ur NEGATIVE NEGATIVE [facility] Ketones, ur NEGATIVE NEGATIVE [facility] Blood, ur NEGATIVE NEGATIVE [facility] Protein, ur, quant NEGATIVE NEGATIVE [facility] Nitrites, ur NEGATIVE NEGATIVE [facility] Leukocyte esterase, ur NEGATIVE NEGATIVE [facility] 06/21/2020 8:21 AM CDT 06/21/2020 8:25 AM CDT Narrative [facility] - 06/22/2020 7:12 AM CDT FASTING:YES FASTING: YES Francisco Long MD LAB URINE ORDERABLES Final Res ult Performing Organization Address [facility] Co de Phone Number [facility] [address] [address] [place], [place] [address] documented in this encounter Visit Diagnoses Not on filedocumented in this encounter Care Teams Fruit Bar Maker Relationship Specialty Start Date End Date Francisco Long MD PCP - General 02/23/17 05/15/22 Neil Ag MD PhD [address] [place] [address] Radiation Oncologist Radiation Oncology 12/17/18 [place] [address] [facility] [address] [place], [place] [address] Referring Physician General Surgery 12/17/18 [place] [address] [facility] [address] [place], [place] [id number] Medical Oncologist/Surface Grinder Tender Medical Oncology 12/17/18 [place] [address] [facility] [address] [place] [address] Consulting Physician Gastroenterology 01/07/20 documented as of this encounter
--- OUTSIDE RECORDS SUMMARY | 2024-11-16 13:04 | XMS_ITS | Encounter Summary ---
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 No / Unsure 02/17/2020 9:55 AM CDT documented as of this encounter Plan of Treatment Not on file documented as of this encounter Visit Diagnoses Not on filedocumented in this encounter Care Teams Sandblaster Supervisor Relationship Specialty Start Date End Date Francisco Long MD PCP - General 02/23/17 05/15/22 Neil Ag MD PhD [address] [place] [address] Radiation Oncologist Radiation Oncology 12/17/18 [place] [address] [facility] [address] [place] [id number] Referring Physician General Surgery 12/17/18 [place] [address] [facility] [address] [place] [address] Medical Oncologist/Maintenance Apprentice Medical Oncology 12/17/18 [place] [address] [facility] [address] [place] [id number] Consulting Physician Gastroenterology 01/07/20 documented as of this encounter
--- OUTSIDE RECORDS SUMMARY | 2024-11-16 13:04 | XMS_ITS | Encounter Summary ---
Author Organization [facility] Address [address] [place] [address] Care Team Providers Care Hand Crocheter Name Role Phone Francisco Long MD Primary Care Provider [phone] Neil Ag MD PhD Unavailable [phone] Ita Vazquez MD Unavailable Caron Mohan MD Unavailable Pebbles Felton MD Unavailable [phone] Reason for Visit * Reason Comments Medicare Annual Wellness Visit [facility] Encounter Details Date Type Department Care Team (Late st Contact Info) Description 07/01/2020 2:00 PM CDT Office Visit [facility] [address] [facility] [address] [place] [address] Francisco Long MD [address] [place] [address] [address] [place] [address] Medicare annual wellness visit, subsequent (Primary Dx); Body mass index (bmi) 28.0-28.9, adult; Essential hypertension; Mixed hyperlipidemia; High risk of cardiac event; Iron deficiency anemia due to chronic blood loss; Recurrent pulmonary emboli (CMS/HCC); Chronic GERD; History of breast cancer; History of uterine cancer Social History Tobacco Use Types Packs/Day Years [...] on file 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 Gender Identity Not on file Sexual Orientation Not on file documented as of this encounter Last Filed Vital Signs Vital Sign Reading Time Taken Comments Blood Pressure 120/90 07/01/2020 2:05 PM CDT Pulse 60 07/01/2020 2:05 PM CDT Temperature - - Respiratory Rate 20 07/01/2020 2:05 PM CDT Oxygen Saturation - - Inhaled Oxygen Concentration - - Weight 83 kg (183 lb) 07/01/2020 2:05 PM CDT Height 170.2 cm (5' 7 ) 07/01/2020 2:05 PM CDT Body Mass Index 28.66 07/01/2020 2:05 PM CDT documented in this encounter Ordered Prescriptions Prescription Sig Dispense Quantity Refills Last Filled Start Date End Date ferrous sulfate 325 mg (65 mg of elemental iron) tabletIndications: Iron Deficiency Anemia Take 1 tablet (325 mg total) by mouth daily with breakfast 30 tablet 07/01/2020 1 rosuvastatin (CRESTOR) 5 mg tablet Take 1 tablet (5 mg total) by mouth daily 30 tablet 07/01/2020 1 documented in this encounter Progress Notes * Francisco Long MD - 07/01/2020 2:00 PM CDT Subjective/Objective Patient ID: Jolene Cedillo is a 74 y.o. female. Chief Complaint Medicare Annual Wellness Visit Subsequent (w) Cardiac risk iron deficiency rheumatoid arthritis gastroesophageal reflux disease HPI This 74-year-old female seen today for well examination multiple medical problems she had a postop deep venous thrombosis after orthopedic surgery remain time she was maintain on anticoagulation for several months since that time she had breast cancer and uterine cancer successfully treated and in November this year she developed shortness of breath was found have pulmonary emboli on CT scan sincethat time she has been on anticoagulation therapy requiring no oxygen studies for thrombophilia were unrevealing and the patient has had a recent GI bleed with hemoglobin dropping down to 7 requiring2 units of packed red blood cells at 3 day hospitalization since that time she has had no melena no hematochezia and the risk benefits of chronic Eliquis therapy discussed with patient at length the patient has received IV iron therapy 900 mg this year without side effects and will try her on p.o. iron again her iron levels are low in December she did have a colonoscopy and EGD with Dr. castano doc 80 she is total come back in 3 years for occult repeat colonoscopy her EGD during her hospitalization revealed some mild gastritis and she had some polyps that were tubular adenomas in the colon no peptic ulcer disease was found no intervention was necessary and the patient was resumed on her Eliquis therapy Patient had uterine cancer in the summer 2017 treated with hysterectomy and bilateral salpingo-oophorectomy she was subsequently found have breast cancer in October had surgery October 2018 lumpectomy followed by radiation therapy no chemotherapy was necessary with breast cancer She has longstanding history hypertension rheumatoid arthritis pre diabetes hyperlipidemia breast cancer now uterine cancer history history of total right knee replacement history deep venous thrombosis following bilateral arthroscopic knee surgery cataract surgery left total knee replacement hysterectomy breast lumpectomy She has never been a smoker drinks alcohol rarely She has been to [place] for over 40 years 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 she no children her is a mazariegos she had her stay very busy Patient is at increased cardiac risk 45% she is not taking statin risk benefits of statin therapy were discussed with her will try small dose of Crestor 5 mg will be written daily but she will just take it Sunday and Wednesdays and Fridays and she will watch closely for muscle pain muscle weakness dark-colored urine she was intolerant to atorvastatin The patient sees her radiation oncologist every 6 months she sees her breast surgeon once year she sees her dentist as needed she has her eye doctor on a regular basis sees her gas booster engineer yearly Her current medications Protonix 40 mg daily losartan 100 daily Eliquis 5 b.i.d. Coreg 6.25 b.i.d. 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 self-breast examinations monthly mammograms yearly bone density testing every2 years Body mass index (bmi) 28.0-28.9, adult Her weight is okay she could lose a few lb but not much encouraged daily walking Essential hypertension Good control with current regimen continue current regimen Mixed hyperlipidemia Begin statin therapy risk benefits of statins discussed with her she will watch for muscle pain muscle weakness dark-colored urine High risk of cardiac event Begin statin therapy she will watch for side effects as noted above Iron deficiency anemia due to chronic blood loss Resume iron supplementation monitor Recurrent pulmonary emboli (CMS/HCC) Stay on Eliquis risk benefits of Eliquis re-emphasized with the patient Chronic GERD Continue PPI therapy risk benefits of chronic PPI therapy discussed with her History of breast cancer Follow-up with Hematology Oncology History of uterine cancer Follow-up with Hematology Oncology Other orders - rosuvastatin (CRESTOR) 5 mg tablet; Take 1 tablet (5 mg total) by mouth daily - ferrous sulfate 325 mg (65 mg of elemental iron) tablet; Take 1 tablet (325 mg total) by mouth daily with breakfast Will get a headache profile magnesium level lipid profile BMP iron profile before next appointment in 4 months Side effects, risks, interactions reviewed with [...] Diagnosis Medicare annual wellness visit, subsequent- Primary Body mass index (bmi) 28.0-28.9, adult Essential hypertension Unspecified essential hypertension Mixed hyperlipidemia High risk of cardiac event Iron deficiency anemia due to chronic blood loss Iron deficiency anemia secondary to blood loss (chronic) Recurrent pulmonary emboli (CMS/HCC) (HCC) Chronic GERD History of breast cancer Personal history of malignant neoplasm of breast History of uterine cancer Personal history of malignant neoplasm of other parts of uterus documented in this encounter Care Teams Hand Crocheter Relationship Specialty Start Date End Date Francisco Long MD PCP - General 02/23/17 05/15/22 Neil Ag MD PhD [address] [place] [address] Radiation Oncologist Radiation Oncology 12/17/18 [place] [address] [facility] [id number] Referring Physician General Surgery 12/17/18 [place] [address] [facility] [address] [facility] [place] [address] Medical Oncologist/Document Reviewer Medical Oncology 12/17/18 [place] [address] [facility] [address] [place] [address] Consulting Physician Gastroenterology 01/07/20 documented as of this encounter
--- OUTSIDE RECORDS SUMMARY | 2024-11-16 13:04 | XMS_ITS | Encounter Summary ---
Author Organization [facility] Address [address] [place] [address] Care Team Providers Care Management Recruiter Name Role Phone Francisco Long MD Primary Care Provider [phone] Neil Ag MD PhD Unavailable [phone] Ita estrada MD Unavailable Caron Mohan MD Unavailable Pebbles Felton MD Unavailable [phone] Encounter Details Date Type Department Care Team (Late st Contact Info) Description 02/09/2020 Orders Only [facility] 2 [facility] [address] [place] [address] Francisco Long MD [address] [place] [address] [address] [place] [address] Social History Tobacco Use Types [...] on file 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 Gender Identity Not on file Sexual Orientation Not on file documented as of this encounter Miscellaneous Notes * Result Encounter Note - Francisco Long MD - 02/13/2020 12:44 PM CDT Okay to leave a message hemoglobin up to 11.6 11.7 is normal documented in this encounter Plan of Treatment Not on file documented as of this encounter Procedures Procedure Name Priority Date/Time Associated Diagnosis Comments HEMOGLOBIN Routine 02/09/2020 9:05 AM CDT HEMATOCRIT Routine 02/09/2020 9:05 AM CDT documented in this encounter Results * (ABNORMAL) Hemoglobin (02/09/2020 9:05 AM CDT) Hgb 11.6(L) 11.7 - 15.5 g/dL [facility] [place] 02/09/2020 9:05 AM CDT 02/09/2020 9:05 AM CDT Narrative Resulting Agency Comment Performing Organization Information: ?Site ID: ID ?Name: [facility] ?Address: [id number] [place] [address] [place] [address] ?Director: Alex Garcia D.O., MPH us Francisco Long MD LAB BLOOD ORDERABLES Final Res ult [facility] [place] * Hematocrit (02/09/2020 9:05 AM CDT) Hct 37.9 35.0 - 45.0 % [employer] 02/09/2020 9:05 AM CDT 02/09/2020 9:05 AM CDT Narrative Resulting Agency Comment Performing Organization Information: ?Site ID: [id number] ?Name: [facility] ?Address: [address] [place] [phone] ?Director: Alex Garcia D.O., MPH Francisco Long MD LAB BLOOD ORDERABLES Final Res ult [facility] [place] documented in this encounter Visit Diagnoses Not on filedocumented in this encounter Care Teams Management Recruiter Relationship Specialty Start Date End Date Francisco Long MD PCP - General 02/23/17 05/15/22 Neil Ag MD PhD [address] [place] [address] Radiation Oncologist Radiation Oncology 12/17/18 [place] [address] [facility] 120 [place], [place] [address] Referring Physician General Surgery 12/17/18 [place] [address] [facility] [address] [place], [place] [address] Medical Oncologist/Catering Staff Member Medical Oncology 12/17/18 [place] [address] [facility] [address] [place], [place] [address] Consulting Physician Gastroenterology 01/07/20 documented as of this encounter
--- OUTSIDE RECORDS SUMMARY | 2024-11-16 13:04 | XMS_ITS | Encounter Summary ---
Author Organization [facility] Medical Group Address [address] [place] [address] Care Team Providers Care Bicycle Repair Technician Name Role Phone Francisco Long MD Primary Care Provider [phone] Neil Ag MD PhD Unavailable [phone] Ita estrada MD Unavailable Caron Mohan MD Unavailable [phone] Pebbles Felton MD Unavailable [phone] Encounter Details Date Type Department Care Team (Late st Contact Info) Description 05/10/2020 Orders Only [facility] [address] [place] [address] Francisco Long MD [address] [place] [address] [address] [place] [address] Social History Tobacco Use Types [...] file 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 Gender Identity Not on file Sexual Orientation Not on file documented as of this encounter Plan of Treatment Not on file documented as of this encounter Procedures Procedure Name Priority Date/Time Associated Diagnosis Comments SCAN - LABS Routine 05/10/2020 documented in this encounter Results * SCAN - LABS (05/10/2020) us Historical Provider Final Res ult documented in this encounter Visit Diagnoses Not on filedocumented in this encounter Care Teams Bicycle Repair Technician Relationship Specialty Start Date End Date Francisco Long MD PCP - General 02/23/17 05/15/22 Neil Ag MD PhD 6 [place] [address] Radiation Oncologist Radiation Oncology 12/17/18 [place] [address] [facility] [address] [facility] [place], [place] [address] Referring Physician General Surgery 12/17/18 [place] [address] [facility] 120 [place], [place] [id number] Medical Oncologist/Internet Media Planner Medical Oncology 12/17/18 [place] [address] [facility] 120 [place] [address] Consulting Physician Gastroenterology 01/07/20 documented as of this encounter
--- OUTSIDE RECORDS SUMMARY | 2024-11-16 13:04 | XMS_ITS | Encounter Summary ---
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 Gender Identity Not on file Sexual Orientation Not on file documented as of this encounter Plan of Treatment Not on file documented as of this encounter Visit Diagnoses Not on filedocumented in this encounter Care Teams Switch Coupler Relationship Specialty Start Date End Date Francisco Long MD PCP - General 02/23/17 05/15/22 Neil Ag MD PhD 6 [place] [address] Radiation Oncologist Radiation Oncology 12/17/18 [place] [address] [address] [facility] 120 [place], [place] [address] Referring Physician General Surgery 12/17/18 [place] [address] [address] [facility] [address] [place] [address] Medical Oncologist/Machine Splitter Medical Oncology 12/17/18 [place] [address] [address] [facility] 120 [place], [place] [address] Consulting Physician Gastroenterology 01/07/20 documented as of this encounter
--- OUTSIDE RECORDS SUMMARY | 2024-11-16 13:04 | XMS_ITS | Encounter Summary ---
Author Organization [facility] Address [address] [place] [address] Care Team Providers Care Coding Clerk Name Role Phone Francisco Long MD Primary Care Provider Neil Ag MD PhD Unavailable [phone] Ita Vazquez MD Unavailable Caron Mohan MD Unavailable Pebbles Felton MD Unavailable [phone] Encounter Details Date Type Department Care Team (Late st Contact Info) Description 01/26/2020 Telephone [facility] [address] [place] [address] Francisco Long MD [address] [place] [address] [address] [place] [address] Social History Tobacco Use Types [...] on file 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 Message given to Stephanie as well. NS PLANTER documented in this encounter Plan of Treatment Not on file documented as of this encounter Visit Diagnoses Not on filedocumented in this encounter Care Teams Coding Clerk Relationship Specialty Start Date End Date Francisco Long MD PCP - General 02/23/17 05/15/22 Neil Ag MD PhD [address] [place] [address] Radiation Oncologist Radiation Oncology 12/17/18 [place] [address] [address] [place] [address] Referring Physician General Surgery 12/17/18 [place] [address] [address] [facility] 120 [place] [address] Medical Oncologist/Aerial Survey Technician Medical Oncology 12/17/18 [place] [address] [facility] [address] [place] [id number] Consulting Physician Gastroenterology 01/07/20 documented as of this encounter
--- OUTSIDE RECORDS SUMMARY | 2024-11-16 13:04 | XMS_ITS | Encounter Summary ---
Author Organization [facility] Medical Group Address [address] [place] [address] Care Team Providers Care Motor Operator Name Role Phone Francisco Long MD Primary Care Provider [phone] Neil Ag MD PhD Unavailable [phone] Ita estrada MD Unavailable Caron Mohan MD Unavailable Pebbles Felton MD Unavailable [phone] Encounter Details Date Type Department Care Team (Late st Contact Info) Description 01/26/2020 Orders Only [facility] Health Information Management [address] [place] [address] Scanning, Provider Social History Tobacco [...] on file 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 Gender Identity Not on file Sexual Orientation Not on file documented as of this encounter Plan of Treatment Not on file documented as of this encounter Procedures Procedure Name Priority Date/Time Associated Diagnosis Comments SCAN - LABS 01/26/2020 documented in this encounter Results * SCAN - LABS (01/26/2020) us Provider Scanning Final Result documented in this encounter Visit Diagnoses Not on filedocumented in this encounter Care Teams Motor Operator Relationship Specialty Start Date End Date Francisco Long MD PCP - General 02/23/17 05/15/22 Neil Ag MD PhD 6 [place] [address] Radiation Oncologist Radiation Oncology 12/17/18 [place] [address] [facility] 120 [employer], [place] [address] Referring Physician General Surgery 12/17/18 [place] [address] [facility] [address] [employer], [place] [id number] Medical Oncologist/Sampler Ovens Medical Oncology 12/17/18 [place] [address] [facility] [address] [employer], [place] [address] Consulting Physician Gastroenterology 01/07/20 documented as of this encounter
--- OUTSIDE RECORDS SUMMARY | 2024-11-16 13:04 | XMS_ITS | Encounter Summary ---
Author Organization [facility] Medical Group Address [address] [place] [address] Care Team Providers Care Print Operator Name Role Phone Francisco Long MD Primary Care Provider [phone] Neil Ag MD PhD Unavailable [phone] Ita estrada MD Unavailable Caron Mohan MD Unavailable Pebbles Felton MD Unavailable [phone] Encounter Details Date Type Department Care Team (Late st Contact Info) Description 07/01/2020 Orders Only [place] [facility] [address] [place] [address] Francisco Long MD [address] [place] [address] [address] [place] [address] Essential hypertension (Primary Dx); Mixed hyperlipidemia; Iron deficiency anemia due to chronic blood loss; Iron deficiency; Encounter for therapeutic drug monitoring Social History [...] on file 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 Gender Identity Not on file Sexual Orientation Not on file documented as of this encounter Plan of Treatment Not on file documented as of this encounter Procedures Procedure Name Priority Date/Time Associated Diagnosis Comments LIPID PANEL WITH REFLEX TO DIRECT LDL Routine 10/18/2020 8:46 AM SNOW PLOW OPERATOR Essential hypertension Mixed hyperlipidemia Encounter for therapeutic drug monitoring IRON PROFILE W/ IBC Routine 10/18/2020 8 :46 AM SNOW PLOW OPERATOR Essential hypertension Mixed hyperlipidemia Iron deficiency Encounter for therapeutic drug monitoring MAGNESIUM Routine 10/18/2020 8:46 AM SNOW PLOW OPERATOR Essential hypertension Mixed hyperlipidemia Encounter for therapeutic drug monitoring HEPATIC FUNCTION PANEL Routine 10/18/2020 8:46 AM SNOW PLOW OPERATOR Essential hypertension Mixed hyperlipidemia Encounter for therapeutic drug monitoring BASIC METABOLIC PANEL Routine 10/18/2020 8:46 AM SNOW PLOW OPERATOR Essential hypertension Mixed hyperlipidemia Encounter for therapeutic drug monitoring documented in this encounter Results * Iron profile w/ IBC (10/18/2020 8:46 AM SNOW PLOW OPERATOR) Iron 88 45 - 160 mcg/dL [facility] TIBC 361 250 - 450 mcg/dL (calc) [facility] Iron saturation 24 16 - 45 % (calc) [facility] Blood specimen (specimen) 10/18/2020 8:46 AM SNOW PLOW OPERATOR 10/18/2020 8:47 AM SNOW PLOW OPERATOR Narrative [facility] - 10/19/2020 5:27 AM SNOW PLOW OPERATOR FASTING:YES FASTING: YES us Francisco Long MD LAB BLOOD ORDERABLES Final Res ult [facility] [address] [address] [place] [address] * (ABNORMAL) Basic metabolic panel (10/18/2020 8:46 AM SNOW PLOW OPERATOR) Glucose 124(H) 65 - 99 mg/dL [facility] Comment: ? Fasting reference interval For someone without known diabetes, a glucose value between 100 and 125 mg/dL is consistent with prediabetes and should be confirmed with a follow-up test. BUN 19 7 - 25 mg/dL [facility] Creatinine 0.93 0.60 - 0.93 mg/dL [facility] Comment: For patients >49 years of age, the reference limit for Creatinine is approximately 13% higher for people identified as -[place]. eGFR NON-AFR. STATELESS 61 > OR = 60 mL/min/1 .73m2 [facility] EGFR 71 > OR = 60 mL/min/1 .73m2 [facility] BUN/creat ratio NOT APPLICABLE 6 - 22 (calc) [facility] Sodium 140 135 - 146 mmol/L [facility] Potassium, pl 4.2 3.5 - 5.3 mmol/L [facility] Chloride 101 98 - 110 mmol/L [facility] CO2 29 20 - 32 mmol/L [facility] Calcium 9.3 8.6 - 10.4 mg/dL [facility] Blood specimen (specimen) 10/18/2020 8:46 AM SNOW PLOW OPERATOR 10/18/2020 8:47 AM SNOW PLOW OPERATOR Narrative [facility] - 10/19/2020 5:27 AM SNOW PLOW OPERATOR FASTING:YES FASTING: YES us Francisco Long MD LAB BLOOD ORDERABLES Final Res ult LEXI [facility] [address] [place] [id number] * (ABNORMAL) Lipid panel with reflex to direct LDL (10/18/2020 8:46 AM SNOW PLOW OPERATOR) Cholesterol 275(H) <200 mg/dL [facility] HDL 61 > OR = 50 mg/dL [facility] Triglycerides 137 <150 mg/dL [facility] LDL 187(H) mg/dL (calc) [facility] Comment: Reference [...] LDL-C. Harry YUAN et al. RANDALL. 2013;310(19): 8875-2298 (http://education.Cryoocyte/faq/QEI975) Chol/HDL ratio 4.5 <5.0 (calc) [facility] Non-HDL, (LDL+VLDL) 214(H) <130 mg/dL (calc) [facility] Comment: For patients with diabetes plus 1 major ASCVD risk factor, treating to a non-HDL-C goal of <100 mg/dL (LDL-C of <70 mg/dL) is considered a therapeutic option. Blood specimen (specimen) 10/18/2020 8:46 AM SNOW PLOW OPERATOR 10/18/2020 8:47 AM SNOW PLOW OPERATOR Narrative [facility] - 10/19/2020 5:27 AM SNOW PLOW OPERATOR FASTING:YES FASTING: YES Francisco Long MD LAB BLOOD ORDERABLES Final Res ult [facility] [address] [place] [address] * Magnesium (10/18/2020 8:46 AM SNOW PLOW OPERATOR) Magnesium 2.0 1.5 - 2.5 mg/dL [facility] Blood specimen (specimen) 10/18/2020 8:46 AM SNOW PLOW OPERATOR 10/18/2020 8:47 AM SNOW PLOW OPERATOR Narrative [facility] - 10/19/2020 5:27 AM SNOW PLOW OPERATOR FASTING:YES FASTING: YES us Francisco Long MD LAB BLOOD ORDERABLES Final Res ult [facility] [address] [place] [address] * Hepatic function panel (10/18/2020 8:46 AM SNOW PLOW OPERATOR) Protein, Total 6.6 6.4 - 8.4 g/dL [facility] Albumin 4.1 3.6 - 5.1 g/dL [facility] Globulin 2.5 2.2 - 4.0 g/dL (calc) [facility] Alb/glob ratio 1.6 0.9 - 2.3 (calc) [facility] Bilirubin, total 0.7 0.2 - 1.2 mg/dL [facility] Bilirubin, direct 0.1 < OR = 0.2 mg/dL [facility] Bilirubin, indirect 0.6 0.2 - 1.2 mg/dL (calc) [facility] Alk phos 70 37 - 153 U/L [facility] AST 23 10 - 35 U/L [facility] ALT (SGPT) 22 6 - 29 U/L [facility] Blood specimen (specimen) 10/18/2020 8:46 AM SNOW PLOW OPERATOR 10/18/2020 8:47 AM SNOW PLOW OPERATOR Narrative [facility] - 10/19/2020 5:27 AM SNOW PLOW OPERATOR FASTING:YES FASTING: YES us Francisco Long MD LAB BLOOD ORDERABLES Final Res ult Performing Organization Address [facility] de Phone Number LEXI Can[facility] [address] [place] [address] documented in this encounter Visit Diagnoses Diagnosis Essential hypertension- Primary Unspecified essential hypertension Mixed hyperlipidemia Iron deficiency anemia due to chronic blood loss Iron deficiency anemia secondary to blood loss (chronic) Iron deficiency Disorders of iron metabolism Encounter for therapeutic drug monitoring documented in this encounter Care Teams Print Operator Relationship Specialty Start Date End Date Francisco Long MD PCP - General 02/23/17 05/15/22 Neil Ag MD PhD 6 [place] [address] Radiation Oncologist Radiation Oncology 12/17/18 [place] [address] [address] [facility] 120 [place], [place] [id number] Referring Physician General Surgery 12/17/18 [place] [address] [address] [facility] [[email or web address] 120 [place], [place] [phone] Medical Oncologist/Wastewater Treatment Plant Chemist Medical Oncology 12/17/18 [place] [address] [facility] [address] [place], [place] [address] Consulting Physician Gastroenterology 01/07/20 documented as of this encounter
--- OUTSIDE RECORDS SUMMARY | 2024-11-16 13:04 | XMS_ITS | Encounter Summary ---
Author Organization [facility] Medical [facility] Address [address] [place] [address] Care Team Providers Care Coil Winder Name Role Phone Francisco Long MD Primary Care Provider [phone] Neil Ag MD PhD Unavailable [phone] Ita estrada MD Unavailable Caron Mohan MD Unavailable Pebbles Felton MD Unavailable [phone] Encounter Details Date Type Department Care Team (Late st Contact Info) Description 02/02/2020 Orders Only [facility] [address] [facility] [address] [place] [address] Francisco Long MD [address] [place] [address] 220 [place] [address] Social History Tobacco Use Types [...] file 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 Gender Identity Not on file Sexual Orientation Not on file documented as of this encounter Plan of Treatment Not on file documented as of this encounter Procedures Procedure Name Priority Date/Time Associated Diagnosis Comments HEMOGLOBIN AND HEMATOCRIT Routine 02/02/2020 10:12 AM CDT documented in this encounter Results * (ABNORMAL) Hemoglobin and hematocrit (02/02/2020 10:12 AM CDT) Hgb 10.5(L) 11.7 - 15.5 g/dL [facility] [place] Hct 35.4 35.0 - 45.0 % [facility] [place] 02/02/2020 10:1 2 AM CDT 02/02/2020 10:15 AM CDT Narrative Resulting Agency Comment Performing Organization Information: ?Site ID: [id number] ?Name: [facility] ?[address]: [address] [address] [address] ?Director: Alex Garcia D.O., MPH us Francisco Long MD LAB BLOOD ORDERABLES Final Res ult [facility] [place] documented in this encounter Visit Diagnoses Not on filedocumented in this encounter Care Teams Coil Winder Relationship Specialty Start Date End Date Francisco Long MD PCP - General 02/23/17 05/15/22 Neil Ag MD PhD 6 [place] [address] Radiation Oncologist Radiation Oncology 12/17/18 [place] [address] [facility] [address] [place] [address] Referring Physician General Surgery 12/17/18 [place] [address] [facility] [address] [place] [address] Medical Oncologist/Dental Laboratory Supervisor Medical Oncology 12/17/18 [place] [address] [facility] [address] [place] [address] Consulting Physician Gastroenterology 01/07/20 documented as of this encounter
--- OUTSIDE RECORDS SUMMARY | 2024-11-16 13:05 | XMS_ITS | Encounter Summary ---
Author Organization [facility] Medical [facility] Address [address] [place] [address] Care Team Providers Care Avid Editor Name Role Phone Francisco Long MD Primary Care Provider Neil Ag MD PhD Unavailable [phone] Ita Vazquez MD Unavailable Caron Mohan MD Unavailable Pebbles Felton MD Unavailable [phone] Encounter Details Date Type Department Care Team (Late st Contact Info) Description 01/20/2020 Telephone [place] [facility] [address] [facility] [address] [place] [address] Francisco Long MD [address] [place] [address] [address] [place] [address] Social History Tobacco Use Types [...] on file 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 Gender Identity Not on file Sexual Orientation Not on file documented as of this encounter Miscellaneous Notes * Telephone Encounter - Marianne Badillo MA - 01/20/2020 10:39 AM CST Pt notified DIRECTOR * Telephone Encounter - Marianne Badillo MA - 01/20/2020 10:39 AM CST ----- Message from Francisco Long MD sent at 01/20/2020 6:51 AM ZOO DIRECTOR ----- Hemoglobin 9.3 recheck 2 weeks DIRECTOR documented in this encounter Plan of Treatment Not on file documented as of this encounter Visit Diagnoses Not on filedocumented in this encounter Care Teams Avid Editor Relationship Specialty Start Date End Date Francisco Long MD PCP - General 02/23/17 05/15/22 Neil Ag MD PhD [address] [place] [id number] Radiation Oncologist Radiation Oncology 12/17/18 [place] [address] [address] [place] [address] Referring Physician General Surgery 12/17/18 [place] [address] [address] [place] [address] Medical Oncologist/Emblem Fuser Tender Medical Oncology 12/17/18 [place] [address] [address] Consulting Physician Gastroenterology 01/07/20 documented as of this encounter
--- OUTSIDE RECORDS SUMMARY | 2024-11-16 13:05 | XMS_ITS | Encounter Summary ---
Author Organization [facility] Address [address] [place] [address] Care Team Providers Care Compressor Service Technician Name Role Phone Francisco Long MD Primary Care Provider [phone] Neil Ag MD PhD Unavailable [phone] Ita estrada MD Unavailable Caron Mohan MD Unavailable Pebbles Felton MD Unavailable [phone] Encounter Details Date Type Department Care Team (Late st Contact Info) Description 01/19/2020 Orders Only [place] [facility] [address] [place] [address] Francisco Long MD [address] [place] [address] 220 [place] [address] Social History Tobacco Use Types [...] file 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 Gender Identity Not on file Sexual Orientation Not on file documented as of this encounter Miscellaneous Notes * Result Encounter Note - Francisco Long MD - 01/20/2020 6:51 AM CST Hemoglobin 9.3 recheck 2 weeks ICAL 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 documented in this encounter Plan of Treatment Not on file documented as of this encounter Procedures Procedure Name Priority Date/Time Associated Diagnosis Comments HEMOGLOBIN Routine 01/19/2020 10:40 AM CLINICAL 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 HEMATOCRIT Routine 01/19/2020 10:40 AM CLINICAL 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 documented in this encounter Results * (ABNORMAL) Hemoglobin (01/19/2020 10:40 AM CLINICAL 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) Hgb 9.3(L) 11.7 - 15.5 g/dL JES[facility] RAMON 01/19/2020 10:4 0 AM CLINICAL 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 01/19/2020 10:41 AM CLINICAL 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 Narrative Resulting Agency Comment Performing Organization Information: ?Site ID: [place] ?Name: [facility] ?Address: [address] [place], [place] [address] [id number] ?Director: Alex Garcia D.O., MPH us Francisco Long MD LAB BLOOD ORDERABLES Final Res ult JESIKA [employer] [place] * (ABNORMAL) Hematocrit (01/19/2020 10:40 AM CLINICAL 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) Hct 32.2(L) 35.0 - 45.0 % JESIKA VAUGHN [facility] Y[place]NY 01/19/2020 10:4 0 AM CLINICAL 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 01/19/2020 10:41 AM CLINICAL 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 Narrative Resulting Agency Comment Performing Organization Information: ?Site ID: YENNY ?Name: Jesika Matthew ?Address: [address] [address] [address] [id number] ?Director: Alex Garcia D.O., MPH us Francisco Long MD LAB BLOOD ORDERABLES Final Res ult [facility] [place] Mcgarry documented in this encounter Visit Diagnoses Not on filedocumented in this encounter Care Teams Compressor Service Technician Relationship Specialty Start Date End Date Francisco Long MD PCP - General 02/23/17 05/15/22 Neil Ag MD PhD 6 [place] [address] Radiation Oncologist Radiation Oncology 12/17/18 [place] [address] [facility] 120 [employer], [place] [address] Referring Physician General Surgery 12/17/18 [place] [address] [facility] [address] [employer], [place] [address] Medical Oncologist/Bottom Polisher Medical Oncology 12/17/18 [place] [address] [facility] [address] [employer], [place] [id number] Consulting Physician Gastroenterology 01/07/20 documented as of this encounter
--- OUTSIDE RECORDS SUMMARY | 2024-11-16 13:05 | XMS_ITS | Encounter Summary ---
Author Organization [facility] Healthcare Address [address] [place] [address] Care Team Providers Care Sales Planning Manager Name Role Phone Francisco Long MD Primary Care Provider [phone] Neil Ag MD PhD Unavailable [phone] Ita Vazquez MD Unavailable Caron Mohan MD Unavailable Pebbles Felton MD Unavailable [phone] Reason for Visit * Reason Comments OP Infusion * Episode Based Medications (Routine) - Closed Specialty Diagnoses / Procedures Referred By Contlaura t Referred To Contact Diagnoses Iron deficiency anemia due to chronic blood loss Francisco Long MD [address] [place] [address] [address] [place] [address] Phone: tel: fax: [facility] [address] [place] [address] [place] [address] Phone: tel: Referral ID Status Reason Start Date Expiration Date Visits Re quested Visits Authorized [id number] Closed 01/09/2020 07/20/2021 1 1 Encounter Details Date Type Department Care Team (Late st Contact Info) Description 01/15/2020 11:00 AM SPORTS ACTIVITIES FOUL JUDGE Infusion [facility] [place] 4 [facility] [address] [place] [address] Francisco Long MD [address] [place] [address] [address] [place] [address] Iron deficiency anemia due to chronic blood [...] on file 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 SPORTS ACTIVITIES FOUL JUDGE Gender Identity Not on file Sexual Orientation Not on file documented as of this encounter Last Filed Vital Signs Vital Sign Reading Time Taken Comments Blood Pressure 117/67 01/15/2020 12:04 PM SPORTS ACTIVITIES FOUL JUDGE Pulse 76 01/15/2020 12:04 PM SPORTS ACTIVITIES FOUL JUDGE Temperature 36.6 ??C (97.9 ??F) 01/15/2020 12:[address] Respiratory Rate 20 01/15/2020 12:04 PM SPORTS ACTIVITIES FOUL JUDGE Oxygen Saturation 99% 01/15/2020 12:04 PM SPORTS ACTIVITIES FOUL JUDGE Inhaled Oxygen Concentration - - Weight - - Height - - Body Mass Index - - documented in this encounter Discharge Disposition Disposition Code Departure Means Destination Discharge to home or self care documented in this encounter Nursing Notes * Keiry Dejesus RN - 01/15/2020 11:00 AM CST PT HERE FOR VENOFER. IV BEGUN IN RT ANTECUBITAL WITH GOOD BLOOD RETURN NOTED. TOLERATED INFUSION WELL WITH NO EVIDENCE OF REACTION NOTED. TS ACTIVITIES FOUL JUDGE documented in this encounter Plan of Treatment [...] Administer over 90 Minutes, Once, On Piedad 01/15/20 at 1145, For 1 doseIndications:Iron deficiency anemia due to chronic blood loss New Bag 01/15/2020 11:23 AM SPORTS ACTIVITIES FOUL JUDGE 300 mg 176.7 mL/hr documented in this encounter Orders Medications Ordered That Álvaro ht Not Have Been Administered Count Last Ordered Date First Ordered Date iron sucrose (VENOFER) 300 m g in sodium chloride 0.9% 250 mL IVPB 1 01/15/2020 Appointment Requests Count Last Ordered Date Fi rst Ordered Date INFUSION APPT REQUEST 240 MIN 1 01/15/2020 documented in this encounter Care Teams Sales Planning Manager Relationship Specialty Start Date End Date Francisco Long MD PCP - General 02/23/17 05/15/22 Neil Ag MD PhD 6 [place] [address] Radiation Oncologist Radiation Oncology 12/17/18 [place] [address] [facility] 120 [place], [place] [id number] Referring Physician General Surgery 12/17/18 [place] [address] [facility] [address] [place], [place] [id number] Medical Oncologist/Spray Technician Medical Oncology 12/17/18 [place] [address] [facility] [address] [place] [address] Consulting Physician Gastroenterology 01/07/20 documented as of this encounter
--- OUTSIDE RECORDS SUMMARY | 2024-11-16 13:05 | XMS_ITS | Encounter Summary ---
Author Organization [facility] Medical Group Address [address] [facility] [address] [place] [address] Care Team Providers Care Concrete Pipe Machine Operator Name Role Phone Francisco Long MD Primary Care Provider [phone] Neil Ag MD PhD Unavailable [phone] Ita estrada MD Unavailable Caron Mohan MD Unavailable Pebbles Felton MD Unavailable [phone] Encounter Details Date Type Department Care Team (Late st Contact Info) Description 01/08/2020 Orders Only [facility] 2 [facility] [address] [place] [address] Francisco Long MD [address] [place] [address] [address] [place] [address] Iron deficiency anemia secondary to blood loss (chronic) (Primary Dx) Social History Tobacco Use Types [...] on file 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 [facility], [place] [id number] Referring Physician General Surgery 12/17/18 [place] [address] [facility] 120 [employer], [place] [id number] Medical Oncologist/Patient Care Specialist Medical Oncology 12/17/18 [place] [address] [facility] [address] [employer], [place] [id number] Consulting Physician Gastroenterology 01/07/20 documented as of this encounter
--- OUTSIDE RECORDS SUMMARY | 2024-11-16 13:05 | XMS_ITS | Encounter Summary ---
Author Organization [facility] Medical Group Address [address] [facility] [address] [place] [address] Care Team Providers Care Fireboat Operator Name Role Phone Francisco Long MD Primary Care Provider [phone] Neil Ag MD PhD Unavailable [phone] Ita estrada MD Unavailable Caron Mohan MD Unavailable [phone] Pebbles Felton MD Unavailable [phone] Encounter Details Date Type Department Care Team (Late st Contact Info) Description 01/12/2020 Orders Only [facility] 2 [facility] [address] [place] [address] Francisco Long MD [address] [place] [address] [address] [place] [address] Social History Tobacco Use Types [...] on file 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 CLOTH 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 Gender Identity Not on file Sexual Orientation Not on file documented as of this encounter Progress Notes * Francisco Long MD - 01/12/2020 11:59 PM CST Okay to leave a message hemoglobin up to 9.3 check hemoglobin 1 week ITY CLOTH TESTER documented in this encounter Plan of Treatment Not on file documented as of this encounter Procedures Procedure Name Priority Date/Time Associated Diagnosis Comments HEMOGLOBIN AND HEMATOCRIT Routine 01/12/2020 9:52 AM QUALITY CLOTH TESTER documented in this encounter Results * (ABNORMAL) Hemoglobin and hematocrit (01/12/2020 9:52 AM QUALITY CLOTH TESTER) Hgb 9.3(L) 11.7 - 15.5 g/dL [facility] Hct 32.2(L) 35.0 - 45.0 % [facility] 01/12/2020 9:52 AM QUALITY CLOTH TESTER 01/12/2020 9:54 AM QUALITY CLOTH TESTER Narrative Resulting Agency Comment Performing Organization Information: ?Site ID: [place] ?Name: [facility] ?Address: [address] [place] [address] ?Director: Alex Garcia D.O., MPH Francisco Long MD LAB BLOOD ORDERABLES Final Res ult [facility] documented in this encounter Visit Diagnoses Not on filedocumented in this encounter Care Teams Fireboat Operator Relationship Specialty Start Date End Date Francisco Long MD PCP - General 02/23/17 05/15/22 Neil Ag MD PhD 6 [place] [address] Radiation Oncologist Radiation Oncology 12/17/18 [place] [address] [facility] [address] [place] [id number] Referring Physician General Surgery 12/17/18 [place] [address] [facility] [address] [place] [id number] Medical Oncologist/Scale Tester Medical Oncology 12/17/18 [place] [address] [facility] [address] [place] [id number] Consulting Physician Gastroenterology 01/07/20 documented as of this encounter
--- OUTSIDE RECORDS SUMMARY | 2024-11-16 13:05 | XMS_ITS | Encounter Summary ---
Author Organization [facility] Medical Group Address [address] [facility] [address] [place] [address] Care Team Providers Care Utility Agent Name Role Phone Francisco Long MD Primary Care Provider Neil Ag MD PhD Unavailable [phone] Ita Vazquez MD Unavailable Caron Mohan MD Unavailable Pebbles Felton MD Unavailable [phone] Encounter Details Date Type Department Care Team (Late st Contact Info) Description 01/13/2020 Telephone [place] [facility] 2 [facility] [address] [place] [address] Francisco Long MD [address] [place] [address] [address] [place] [address] Social History Tobacco Use Types [...] on file 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 ACCOUNTANT 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 Gender Identity Not on file Sexual Orientation Not on file documented as of this encounter Miscellaneous Notes * Telephone Encounter - Latoya Cotton MA - 01/13/2020 8:54 AM JUNIOR ACCOUNTANT BOOKKEEPER Pt aware and already has another lab order for [facility] OR ACCOUNTANT BOOKKEEPER * Telephone Encounter - Latoya Cotton MA - 01/13/2020 8:53 AM JUNIOR ACCOUNTANT BOOKKEEPER ----- Message from Francisco Long MD sent at 01/13/2020 7:00 AM JUNIOR ACCOUNTANT BOOKKEEPER ----- Okay to leave a message hemoglobin up to 9.3 check hemoglobin 1 week OR ACCOUNTANT BOOKKEEPER documented in this encounter Plan of Treatment Not on file documented as of this encounter Visit Diagnoses Not on filedocumented in this encounter Care Teams Utility Agent Relationship Specialty Start Date End Date Francisco Long MD PCP - General 02/23/17 05/15/22 Neil Ag MD PhD 6 [place] [address] Radiation Oncologist Radiation Oncology 12/17/18 [place] [address] [address] [facility] [address] [place] [address] Referring Physician General Surgery 12/17/18 [place] [address] [facility] [facility] [address] [place] [id number] Medical Oncologist/Circus Hand Medical Oncology 12/17/18 [place] [address] [address] Consulting Physician Gastroenterology 01/07/20 documented as of this encounter
--- OUTSIDE RECORDS SUMMARY | 2024-11-16 13:05 | XMS_ITS | Encounter Summary ---
Author Organization [facility] Healthcare Address [address] [place] [address] Care Team Providers Care Health Technical Writer Name Role Phone Francisco Long MD Primary Care Provider Neil Ag MD PhD Unavailable Ita Vazquez MD Unavailable Caron Mohan MD Unavailable Pebbles Felton MD Unavailable [phone] Encounter Details Date Type Department Care Team (Late st Contact Info) Description 01/09/2020 Orders Only [facility] 4 [facility] [address] [place] [address] Francisco Long MD [address] [place] [address] [address] [place] [id number] Social History Tobacco Use Types Packs/Day Years [...] on file 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 IC DESIGN MANAGER Gender Identity Not on file Sexual Orientation Not on file documented as of this encounter Plan of Treatment Not on file documented as of this encounter Visit Diagnoses Not on filedocumented in this encounter Care Teams Health Technical Writer Relationship Specialty Start Date End Date Francisco Long MD PCP - General 02/23/17 05/15/22 Neil Ag MD PhD 6 [place] [address] Radiation Oncologist Radiation Oncology 12/17/18 [place] [address] [id number] Referring Physician General Surgery 12/17/18 [place] [address] [facility] 120 [place] [address] Medical Oncologist/Sales Floor Team Member Medical Oncology 12/17/18 [place] [address] [facility] 120 [place] [address] Consulting Physician Gastroenterology 01/07/20 documented as of this encounter
--- OUTSIDE RECORDS SUMMARY | 2024-11-16 13:05 | XMS_ITS | Encounter Summary ---
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 Gender Identity Not on file Sexual Orientation Not on file documented as of this encounter Plan of Treatment Not on file documented as of this encounter Visit Diagnoses Not on filedocumented in this encounter Care Teams Environmental Officer Relationship Specialty Start Date End Date Francisco Long MD PCP - General 02/23/17 05/15/22 Neil Ag MD PhD 6 [place] [address] Radiation Oncologist Radiation Oncology 12/17/18 [place] [address] [address] 120 [place], [place] [address] Referring Physician General Surgery 12/17/18 [place] [address] [address] [facility] [address] [place] [address] Medical Oncologist/Motel Clerk Medical Oncology 12/17/18 [place] [address] [address] [facility] 120 [place], [place] [address] Consulting Physician Gastroenterology 01/07/20 documented as of this encounter
--- OUTSIDE RECORDS SUMMARY | 2024-11-16 13:05 | XMS_ITS | Encounter Summary ---
Author Organization [facility] Medical Group Address [address] [facility] [address] [place] [address] Care Team Providers Care Billiard Player Name Role Phone Francisco Long MD Primary Care Provider [phone] Neil Ag MD PhD Unavailable [phone] Ita Vazquez MD Unavailable Caron Mohan MD Unavailable Pebbles Felton MD Unavailable [phone] Encounter Details Date Type Department Care Team (Late st Contact Info) Description 01/15/2020 Telephone [place] [facility] 2 [facility] [address] [place] [address] Francisco Long MD [address] [place] [address] [address] [place] [address] Social History Tobacco Use Types [...] on file 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 FIELD GAUGER Gender Identity Not on file Sexual Orientation Not on file documented as of this encounter Miscellaneous Notes * Telephone Encounter - Thalia Wolff CLT - 01/15/2020 9:08 AM CST noted D GAUGER * Telephone Encounter - Anita White MA - 01/15/2020 8:11 AM CST Sent to lab D GAUGER * Telephone Encounter - Francisco Long MD - 01/15/2020 8:07 AM CST Cancel D GAUGER * Telephone Encounter - Anita White MA - 01/15/2020 8:05 AM CST JR D GAUGER * Telephone Encounter - Thalia Wolff CLT - 01/15/2020 7:58 AM CST Lab no show 01-07-20 lmom; 01-09-20 letter sent; Next ov 01-29-20 Labs ordered were: cbc, a1c, b12 folate and spep. FYI: Pt was hospitalized; cbc b12 and folate were collected during hospital stay D GAUGER documented in this encounter Plan of Treatment Not on file documented as of this encounter Visit Diagnoses Not on filedocumented in this encounter Care Teams Billiard Player Relationship Specialty Start Date End Date Francisco Long MD PCP - General 02/23/17 05/15/22 Neil Ag MD PhD 6 [place] [address] Radiation Oncologist Radiation Oncology 12/17/18 [place] [address] [facility] [address] [place], [place] [id number] Referring Physician General Surgery 12/17/18 [place] [address] [address] Medical Oncologist/Plant Technician/Control Room Operator Medical Oncology 12/17/18 [place] [address] [facility] 120 [place] [address] Consulting Physician Gastroenterology 01/07/20 documented as of this encounter
--- OUTSIDE RECORDS SUMMARY | 2024-11-16 13:06 | XMS_ITS | Encounter Summary ---
Author Organization [facility] Medical Group Address [address] [facility] [address] [place] [address] Care Team Providers Care Mutuel Department Manager Name Role Phone Francisco Long MD Primary Care Provider [phone] Neil Ag MD PhD Unavailable [phone] Ita Vazquez MD Unavailable Caron Mohan MD Unavailable [phone] Pebbles Felton MD Unavailable [phone] Reason for Visit * Reason Comments Hospital Follow Up Encounter Details Date Type Department Care Team (Latest Contact Info) Description 01/08/2020 1:15 PM GENERAL MANAGER Office Visit [place] [facility] 2 [facility] [address] [place] [address] Francisco Long MD [address] [place] [address] [address] [place], [place] [id number] Gastrointestinal hemorrhage associated with acute gastritis (Primary Dx); Body mass index (bmi) 29.0-29.9, adult; Iron deficiency; Iron deficiency anemia, unspecified iron deficiency anemia type; Multiple subsegmental pulmonary emboli without acute cor pulmonale Social History Tobacco Use Types Packs/Day Years [...] on file 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 GENERAL MANAGER Gender Identity Not on file Sexual Orientation Not on file documented as of this encounter Last Filed Vital Signs Vital Sign Reading Time Taken Comments Blood Pressure 120/70 01/08/2020 1:14 PM GENERAL MANAGER Pulse 60 01/08/2020 1:14 PM GENERAL MANAGER Temperature - - Respiratory Rate 20 01/08/2020 1:14 PM GENERAL MANAGER Oxygen Saturation - - Inhaled Oxygen Concentration - - Weight 85.3 kg (188 lb) 01/08/2020 1:14 PM GENERAL MANAGER Height 170.2 cm (5' 7 ) 01/08/2020 1:14 PM GENERAL MANAGER Body Mass Index 29.44 01/08/2020 1:14 PM GENERAL MANAGER documented in this encounter Ordered Prescriptions Prescription Sig Dispense Quantity Refills Last Filled Start Date End Date pantoprazole DR (PROTONIX) 40 mg EC tablet Take 1 tablet (40 mg total) by mouth daily 30 tablet 11 01/08/2020 11/01/2020 documented in this encounter Progress Notes * Francisco Long MD - 01/08/2020 1:15 PM CST Subjective/Objective Patient ID: Jolene Cedillo is a 74 y.o. female. Chief Complaint Hospital Follow Up HPI Patient seen today for follow-up anemia GI bleeding iron deficiency pulmonary embolism she was hospitalized after presenting to the emergency room with shortness of breath she is found to be anemic with hemoglobin around 6 iron levels were low just a couple weeks earlier this thyroid levels were high she had noticed black stools but she attributed the black stools her iron supplementation The patient has a history of previous blood clot in the leg following orthopedic surgery few years ago she suffered a pulmonary embolus in November 2019 was placed on Eliquis therapy. During hospitalization patient EGD and colonoscopy she was found have iron hernia and some mild gastritis if you colon polyps which were tubular adenomas no cancer was found no peptic ulcer disease is found area no intervention was necessary and she was told to resume her Eliquis therapy the day after admission which was today Her medications were reconciled with her today they understand there is interaction betweenPPI therapy and methotrexate so going to hold off the methotrexate until they hear from Rheumatology next week fits absolutely essential that the methotrexate be continue Will monitor liver function test more closely Will get her set up for IV iron so that the oral are does not confuse the picture as far as her turning black which may confuse the picture Review of Systems she is having no further chest pain no shortness of breath Vitals: 01/08/20 1314 BP: 120/70 BP Location: Right arm Patient Position: Sitting Pulse: 60 Resp: 20 Weight: 85.3 kg (188 lb) Height: 170.2 cm (5' 7 ) Physical Exam She is pleasant no distress neck is supple lungs are clear no rales rhonchi or wheezes cardiovascular regular without murmurs gallops clicks rubs abdomen soft nontender extremities no edema gait normal cranial nerves 2-12 intact Assessment/Plan Diagnoses and all orders for this visit: Gastrointestinal hemorrhage associated with acute gastritis (Primary) Disease process discussed with patient at her continue PPI therapy hold methotrexate for now Body mass index (bmi) 29.0-29.9, adult Iron deficiency Begin IV iron infusionIron deficiency anemia, unspecified iron deficiency anemia type Hemoglobin hematocrit next week Other orders - pantoprazole DR (PROTONIX) 40 mg EC tablet; Take 1 tablet (40 mg total) by mouth daily Patient has pulmonary embolus she is back on her Eliquis 5 mg twice daily monitor H&H weekly for 4 weeks see back at that time we did talk about the risk of her breast cancer treatment causing possible thromboembolic disease we looked up risk is less than 3% She has good discussed with her breast cancer specialist Side effects, risks, interactions reviewed with patient. Indications for testing discussed. Any further problems to contact us. She was told what to look out for and verbalized understanding. The patient was given the opportunity to have all questions answered today and was in agreement with the plan of care. RAL MANAGER documented in this encounter Plan of Treatment Not on file documented as of this encounter Visit Diagnoses Diagnosis Gastrointestinal hemorrhage associated with acute gastritis- Primary Body mass index (bmi) 29.0-29.9, adult Iron deficiency Disorders of iron metabolism Iron deficiency anemia, unspecified iron deficiency anemia type Multiple subsegmental pulmonary emboli without acute cor pulmonale (HCC) documented in this encounter Discontinued Medications Medication Sig Discontinue Reason Start Date End Da te pantoprazole DR (PROTONIX) 40 mg EC tablet Take 1 tablet (40 mg total) by mouth daily Reorder 01/07/2020 01/08/2020 documented as of this encounter Care Teams Mutuel Department Manager Relationship Specialty Start Date End Date Francisco Long MD PCP - General 02/23/17 05/15/22 Neil Ag MD PhD 6 [place] [address] Radiation Oncologist Radiation Oncology 12/17/18 [place] [address] [facility] [address] [employer], [place] [id number] Referring Physician General Surgery 12/17/[address] [place] [address] [facility] [address] [employer], [place] [id number] Medical Oncologist/Mat Worker Medical Oncology 12/17/18 [place] [address] [facility] [address] [place] [address] Consulting Physician Gastroenterology 01/07/20 documented as of this encounter
--- OUTSIDE RECORDS SUMMARY | 2024-11-16 13:06 | XMS_ITS | Encounter Summary ---
Author Organization [facility] Address [address] [place] [address] Care Team Providers Care Seafood Processor Name Role Phone Francisco Long MD Primary Care Provider [phone] Neil Ag MD PhD Unavailable [phone] Ita estrada MD Unavailable Caron Mohan MD Unavailable [phone] Pebbles Felton MD Unavailable [phone] Encounter Details Date Type Department Care Team (Late st Contact Info) Description 01/07/2020 Telephone [facility] [address] [facility] [address] [place] [address] Winter Martinez MA Social History Tobacco Use Types Packs/Day [...] on file 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 Refused to r/s at this time POLISHER POLISHER documented in this encounter Plan of Treatment Not on file documented as of this encounter Visit Diagnoses Not on filedocumented in this encounter Care Teams Seafood Processor Relationship Specialty Start Date End Date Francisco Long MD PCP - General 02/23/17 05/15/22 Neil Ag MD PhD [address] [place] [address] Radiation Oncologist Radiation Oncology 12/17/18 [place] [address] [facility] [place] [address] Referring Physician General Surgery 12/17/18 [place] [address] [place], [place] [id number] Medical Oncologist/Lay Out Worker Medical Oncology 12/17/18 [place] [address] [address] [facility] [address] [place] [address] Consulting Physician Gastroenterology 01/07/20 documented as of this encounter
--- OUTSIDE RECORDS SUMMARY | 2024-11-16 13:06 | XMS_ITS | Encounter Summary ---
Author Organization [facility] Healthcare Address [address] [place] [address] Care Team Providers Care Bit Shaver Name Role Phone Francisco Long MD Primary Care Provider [phone] Neil Ag MD PhD Unavailable [phone] Ita estrada MD Unavailable Caron Mohan MD Unavailable Encounter Details Date Type Department Care Team (Latest Contact Info) Description 01/05/2020 12:14 PM JUKEBOX ROUTEMAN - 01/05/2020 1:33 PM [facility] Hospital Encounter [facility] [address] [place] [address] Sharath Mejia MD [address] [place] [address] Discharge Disposition: Discharge to home or self [...] on file 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 JUKEBOX ROUTEMAN Gender Identity Not on file Sexual Orientation Not on file documented as of this encounter Medications at Time of Discharge letrozole (FEMARA) 2.5 mg tablet Take 1 tablet (2.5 mg total) by mouth daily apixaban (ELIQUIS) 5 mg tabletIndication s:deep venous thrombosis Take 1 tablet (5 mg total) by mouth 2 (two) times a day 180 tablet 3 12/09/2019 1 carvedilol (COREG) 6.25 mg tablet Take 1 tablet (6.25 mg total) by mouth 2 (two) times a day with meals 180 tablet 3 12/09/2019 1 losartan-hydroCH LOROthiazide (HYZAAR) 100-12.5 mg per tablet TAKE 1 TABLET BY MOUTH DAILY 90 tablet 3 09/30/2019 0 methotrexate 2.5 mg tablet Take 12.5 mg by mouth every 7 days sunday 3 10/30/[address] (PROTONIX) 40 mg EC tablet Take 1 tablet (40 mg total) by mouth daily 30 tablet 11 01/07/2020 0 documented as of this encounter Discharge Disposition Disposition Code Departure Means Destination Discharge to home or self care documented in this encounter Plan of Treatment Not on file documented as of this encounter Procedures Procedure Name Priority Date/Time Associated Diagnosis Comments XR CHEST PA LATERAL 2 VIEWS ED 01/05/2020 12:23 PM JUKEBOX ROUTEMAN documented in this encounter Results * XR Chest Pa Lateral 2 Views (01/05/2020 12:23 PM JUKEBOX ROUTEMAN) Anatomical Region Laterality Modality Body, Chest N/A Computed Radiogr aphy 01/05/2020 12:3 1 PM JUKEBOX ROUTEMAN Impressions 01/05/2020 12:32 PM JUKEBOX ROUTEMAN 1. ??No acute abnormality. 2. ??Moderate to large hiatal hernia. Electronically signed by: Jonathan Barber M.D. Narrative 01/05/2020 12:32 PM JUKEBOX ROUTEMAN EXAMINATION: XR CHEST PA LATERAL 2 VIEWS ORDERING HEALTHCARE PROVIDER: SHARATH MEJIA HISTORY: Shortness of breath for 2 months. TECHNIQUE: Frontal and lateral radiographs of the chest. COMPARISON: Chest x-ray 12/02/2019 FINDINGS: LUNGS/PLEURA: There is no airspace consolidation or pleural effusion. HEART/MEDIASTINUM: The cardiomediastinal silhouette and pulmonary vasculature are normal. HARDWARE/LINES/TUBES: None. BONES: No acute findings. OTHER: Moderate to large hiatal hernia. Procedure Note Jonathan Barber MD - 01/05/2020 EXAMINATION: XR CHEST PA LATERAL 2 VIEWS ORDERING HEALTHCARE PROVIDER: SHARATH MEJIA HISTORY: Shortness of breath for 2 months. TECHNIQUE: Frontal and lateral radiographs of the chest. COMPARISON: Chest x-ray 12/02/2019 FINDINGS: LUNGS/PLEURA: There is no airspace consolidation or pleural effusion. HEART/MEDIASTINUM: The cardiomediastinal silhouette and pulmonary vasculature are normal. HARDWARE/LINES/TUBES: None. BONES: No acute findings. OTHER: Moderate to large hiatal hernia. IMPRESSION: 1. No acute abnormality. 2. Moderate to large hiatal hernia. Electronically signed by: Jonathan Barber M.D. Sharath Mejia MD IMG XR PROCEDURES Final Resu lt documented in this encounter Visit Diagnoses Not on filedocumented in this encounter Care Teams Bit Shaver Relationship Specialty Start Date End Date Francisco Long MD PCP - General 02/23/17 05/15/22 Neil Ag MD PhD [address] [place] [address] Radiation Oncologist Radiation Oncology 12/17/18 [place] [address] [facility] [address] [place] [address] Referring Physician General Surgery 12/17/18 [place] [address] [place] [address] Medical Oncologist/Chemical Instrumentation Officer Medical Oncology 12/17/18 documented as of this encounter
--- OUTSIDE RECORDS SUMMARY | 2024-11-16 13:06 | XMS_ITS | Encounter Summary ---
Author Organization [facility] Medical [facility] Address [address] [facility] [address] [place] [address] Care Team Providers Care Adzing And Boring Machine Feeder Name Role Phone Francisco Long MD Primary Care Provider Neil Ag MD PhD Unavailable [phone] Ita Vazquez MD Unavailable Caron Mohan MD Unavailable Pebbles Felton MD Unavailable [phone] Encounter Details Date Type Department Care Team (Late st Contact Info) Description 01/07/2020 Telephone [place] [facility] [address] [facility] [address] [place] [address] Frnacisco Long MD [address] [place] [address] [address] [place] [address] Social History Tobacco Use Types [...] on file 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 ENERGY ENGINEER Gender Identity Not on file Sexual Orientation Not on file documented as of this encounter Miscellaneous Notes * Telephone Encounter - Latoya Cotton MA - 01/07/2020 3:52 PM ENERGY ENGINEER Pt aware and seeing JR tomorrow GY ENGINEER * Telephone Encounter - Francisco Long MD - 01/07/2020 3:43 PM CST I am quite aware of her hospital stay have the patient see me tomorrow for follow-up blood work GY ENGINEER * Telephone Encounter - Josi Umaña MA - 01/07/2020 3:29 PM CST jr GY ENGINEER * Telephone Encounter - Katie Apple - 01/07/2020 3:27 PM CST Pt states she was admitted to [facility] 01/05. She had an endoscopy and colonoscopy today before she was discharged. She would like JR to call her so she can fill him on her hospital stay. Please call [phone] GY ENGINEER documented in this encounter Plan of Treatment Not on file documented as of this encounter Visit Diagnoses Not on filedocumented in this encounter Care Teams Adzing And Boring Machine Feeder Relationship Specialty Start Date End Date Francisco Long MD PCP - General 02/23/17 05/15/22 Neil Ag MD PhD [address] [place] [address] Radiation Oncologist Radiation Oncology 12/17/18 [place] [address] [facility] [address] [place] [id number] Referring Physician General Surgery 12/17/18 [place] [address] [facility] [address] [place] [id number] Medical Oncologist/Clinical Research Tech Medical Oncology 12/17/18 [place] [address] [facility] [address] [place] [address] Consulting Physician Gastroenterology 01/07/20 documented as of this encounter
--- OUTSIDE RECORDS SUMMARY | 2024-11-16 13:06 | XMS_ITS | Encounter Summary ---
Author Organization [facility] Healthcare Address [address] [place] [address] Care Team Providers Care Society Editor Name Role Phone Francisco Long MD Primary Care Provider [phone] Neil Ag MD PhD Unavailable [phone] Ita Vazquez MD Unavailable Caron Mohan MD Unavailable [phone] Pebbles Felton MD Unavailable [phone] Encounter Details Date Type Department Care Team (Late st Contact Info) Description 01/07/2020 9:24 AM SAFETY RISK LEAD Anesthesia Event [facility] 1 [place] [address] Suzanne Dash MD PhD [address] [place] [address] Anesthesia Record Procedure Summary Procedure Name Responsible Anesthesiologist Anesthesia Start Time Anesthesia Stop Time COLON REMOVAL SNARE (Colon) Suzanne Dash MD PhD 01/07/20 0924 01/07/20 0956 Events Date Time Event Comment 01/07/2020 0824 0924 In Room 0924 An Start 0924 An Start Data 0925 Start Supplemental O2 0925 Patient Positioned Laterally 0936 An Induction The patient was reevaluated immediately before moderate or deep sedation use and before anesthesia induction. 0937 Anesthesia Ready 0939 Proc Start 0941 Proc Fin 0956 an stop data 0956 Handoff to RN I completed my handoff [...] the time of handoff: No value filed. 0956 An Stop 1000 Out of Room Meds Name Total lidocaine (cardiac) syringe 2 % 100 mg propofol 210 mg sodium chloride 0.9% infusion 0 mL * Agents Name O2 * Blood No blood administrations on file. Lines, Drains, and Airways Type Details Placement Removal Peripheral IV Placement Date: 12/27 01/15; Placement Time: 0821; Catheter Size: 22 G; Orientation: Posterior, Right; Location: Hand; Site Prep: Chlorhexidine; Inserted by: Anita Badillo RN; Insertion Attempts: 1; Patient Tolerance: Tolerated well; Removal Date: 01/07/20; Removal Time: 1400; Removal Reason: Per protocol 01/07/20 0821 by Anita Badillo RN 01/07/20 1400 by Lupe Cristina RN documented in this encounter Social History [...] on file 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 SAFETY RISK LEAD Gender Identity Not on file Sexual Orientation Not on file documented as of this encounter OR Notes * Anesthesia Postprocedure Evaluation - Suzanne Dash MD PhD - 01/07/2020 10:54 AM CST Patient: Jolene Cedillo Procedure Summary Date: 01/07/20 Room / Location: [facility] ROOM 1 / [facility] Anesthesia Start: 923 Anesthesia Stop: 955 Procedures: COLON REMOVAL SNARE (N/A Colon) ESOPHAGOGASTRODUODENOSCOPY BIOPSY (N/A ) Endo Add On Colon Biopsy (N/A ) Diagnosis: Iron deficiency anemia due to chronic blood loss Gastrointestinal hemorrhage associated with anorectal source (Iron deficiency anemia due to chronic blood loss [D50.0]) (Gastrointestinal hemorrhage associated with anorectal source [K62.5]) Provider: Pebbles Felton MD Responsible Provider: Suzanne Dash MD PhD Anesthesia Type: general/TIVA ASA Status: 3 Anesthesia Type: general/TIVA Last vitals BP 159/66 Pulse 77 Temp 36.4 ??C (97.6 ??F) (Temporal) Resp 20 SpO2 100% Anesthesia Post Evaluation Patient location during evaluation: PACU Patient participation: complete - patient participated Level of consciousness: fully awake Pain score: 0 Pain management: adequate Airway patency: adequate Anesthetic complications: no Cardiovascular status: acceptable Respiratory status: acceptable Hydration status: acceptable Pt is: normothermic Nausea/Vomiting status: none TY RISK LEAD * Anesthesia Preprocedure Evaluation - Suzanne Dash MD PhD - 01/07/2020 8:16 AM CST Images from the original note were not included. Anesthesia Evaluation Jolene Cedillo is a 74 y.o. female Procedure(s): COLONOSCOPY ESOPHAGOGASTRODUODENOSCOPY Pre-Op Diagnosis Codes: * Iron deficiency anemia due to chronic blood loss [D50.0] HISTORY Past Medical History Information obtained from: chart. Cardiovascular + Hypertension + Hyperlipidemia + DVT/PE Comments: Conclusions: Hyperdynamic left ventricular function.Mild concentric left ventricular hypertrophy. Abnormal LV outflow tract contour but No left ventricular outflow tract gradient at rest. No focal wall motion abnormalities. Impaired diastolic relaxation Grade I. Ejection fraction is visually estimated at 75 %. Moderate mitral annular calcification. Mild mitral valve regurgitation. Moderate pulmonary hypertension based on right ventricular systolic pressure. Estimated peak RVSP is 50 mmHg. Mild tricuspid regurgitation. Electronically Signed By: Reyes Unger MD 2019-12-03 13:04:47 SAFETY RISK LEAD Respiratory + Pulmonary hypertension Echo PA systolic: 50. Pertinent negatives: non-smoker Hepatic / Heme + History of anemia Endocrine / Other + Cancer history Cancer type: breast cancer. + Rheumatological disease - rheumatoid arthritis. Functional Capacity Functional capacity: 4-6 METs Patient Active Problem List Diagnosis ??? Mixed hyperlipidemia ??? Essential hypertension ??? 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 rheumatoid factor (CMS/HCC) ??? Pre-diabetes ??? Malignant neoplasm of uterus (CMS/HCC) ??? Malignant neoplasm of upper-inner quadrant of left breast in female, estrogen receptor positive(CMS/HCC) ??? Encounter for screening colonoscopy ??? Bilateral pulmonary embolism (CMS/HCC) ??? Chronic diastolic heart failure (CMS/HCC) ??? Iron deficiency anemia due to chronic blood loss ??? Gastrointestinal hemorrhage associated with anorectal source Past Medical History: Diagnosis Date ??? HX [...] CATARACT EXTRACTION Cataract extraction ??? HYSTERECTOMY 06/2018 OB History 0 Para 0 Term 0 0 AB 0 Living 0 SAB 0 TAB 0 Ectopic 0 Multiple 0 Live Births 0 Allergies Allergen Reactions ??? Atorvastatin Muscle pain ??? Codeine Nausea only Reaction: Nausea, Med List Status: Nurse Complete Set By: Smith Guzman RN at 01/05/2020 5:45 PM Taking? Last Dose Start Date End Date Provider apixaban (ELIQUIS) 5 mg tablet 01/05/2020 12/09/19 12/08/20 Francisco Long MD Take 1 tablet (5 mg total) by mouth 2 (two) times a day carvedilol (COREG) 6.25 mg tablet 01/05/2020 12/09/19 12/08/20 Francisco Long MD Take 1 tablet (6.25 mg total) by mouth 2 (two) times a day with meals letrozole (FEMARA) 2.5 mg tablet 01/05/2020 -- -- Caron Mohan MD losartan-hydroCHLOROthiazide (HYZAAR) 100-12.5 mg per tablet 01/05/2020 09/30/19 -- Francisco Long MD TAKE 1 TABLET BY MOUTH DAILY Notes: If medication is on backorder please send alternatives available. methotrexate 2.5 mg tablet Past Week 10/30/18 -- Historical ProviderMD Current Facility-Administered Medications: ??? carvediloL (COREG) tablet 6.25 mg, 6.25 mg, oral, BID with meals (bkfst, dinner), 6.25 mg at 01/06/20 1749 ??? ondansetron ODT (ZOFRAN-ODT) disintegrating tablet 4 mg, 4 mg, oral, Q6H PRN OR ondansetron(ZOFRAN) injection 4 mg, 4 mg, intravenous, Q6H PRN ??? sodium chloride 0.9% flush 0.5-20 mL, 0.5-20 mL, intra-catheter, Q8H RAMYA, 10 mL at 01/06/20 1609 ??? sodium chloride 0.9% flush 0.5-20 mL, 0.5-20 mL, intra-catheter, PRN Social History Tobacco Use Smoking Status Never [...] ??? Other Father's Sister mastectomy. ??CA; Vitals: 01/06/20 1945 01/06/20 2313 01/07/20 0415 BP: 138/62 110/52 157/67 Pulse: 78 76 89 Resp: Temp: 37.5 ??C (99.5 ??F) 37.9 ??C (100.2 ??F) 38.1 ??C (100.5 ??F) SpO2: 98% 98% 98% PT: 01/05/2020: 18.1 sec* INR: 01/05/2020: 1.6* APTT: 01/05/2020: 30 sec Hgb A1C: No results found for requested labs within last 720 hours. CBC RBC: 01/07/2020: 3.57 M/cumm* RDW: 01/01/2020: 20.9 %* MCHC: 01/07/2020: 30.8 g/dL* MCH: 01/07/2020: 24.1 pg* MCV: 01/07/2020: 78.2 fL* Hct: 01/07/2020: 27.9 %* Hgb: 01/07/2020: 8.6 g/dL* WBC: 01/07/2020: 6.6 K/cumm MPV: 01/07/2020: 9.9 fL Platelets: 01/07/2020: 220 K/cumm RDW CV: 01/07/2020: 21.1 %* RDW Sd: 01/07/2020: 58.9 fL* BMP Glucose: 01/07/2020: 143 mg/dL* Calcium: 01/07/2020: 8.8 mg/dL Sodium: 01/07/2020: 142 mmol/L Potassium: 01/07/2020: 3.4 mmol/L CO2: 01/07/2020: 24 mmol/L Chloride: 01/07/2020: 105 mmol/L BUN: 01/07/2020: 8 mg/dL Creatinine: 01/07/2020: 0.63 mg/dL DOS Physical Exam Medical history, medications, and allergies reviewed. Attestation: I endorse the findings of the anesthesia pre-evaluation assessment dated: 01/07/2020. Airway Exam: Mallampati: II Cervical ROM: FROM TM distance: normal Jaw ROM: full Cardiovascular Exam: Rate: regular Rhythm: regular Pulmonary Exam: LCTA, bilat Dental Exam: Caps and otherwise appears intact Current state: Patient's current state is cooperative and interactive. Anesthesia Plan ASA 3 Planned anesthesia: General/TIVA Induction: Induction: intravenous. Postoperative Plan: No plan for postoperative opioid use. No postoperative mechanical ventilation intended. Patient's planned disposition post procedure is Floor. Informed Consent: Discussed plan with ART THERAPY CERTIFIED SUPERVISOR and attending. Anesthesia plan and risks discussed with patient. Consent and Attending signature: I and/or my designee have discussed the anesthesia plan, benefits, possible alternatives, parental presence at time of induction (if indicated), and clinically relevant risks that may include dental injury, unintentional awareness, and/or other complications. The patient and/or parent/legal guardian understand, and agree to proceed. All questions answered. TY RISK LEAD documented in this encounter Plan of Treatment Not on file documented as of this encounter Visit Diagnoses Not on filedocumented in this encounter Administered Medications Inactive Administered Medications - up to 3 most recent administrations Medication Order MAR Action Action Date Dose Rate Site lidocaine (cardiac) (XYLOCAINE) preservative free injection intravenous, As needed, Starting on Sun01/07/20 at 0936, Anesthesia Intra-op, Indications: Ventricular ArrhythmiasIndications:Ventricular Arrhythmias Given 01/07/2020 9:36 AM SAFETY RISK LEAD 100 mg propofol (DIPRIVAN) IV intravenous, As needed, Starting on Sun01/07/20 at 0936, Anesthesia Intra-op Given 01/07/2020 9:53 AM SAFETY RISK LEAD 20 mg Given 01/07/2020 9:48 AM SAFETY RISK LEAD 20 mg Given 01/07/2020 9:46 AM SAFETY RISK LEAD 40 mg sodium chloride 0.9% infusion 30 mL/hr, intravenous, Continuous, Starting on Sun01/07/20 at 0900, Pre-Procedure (GI) Rate/Dose Verify 01/07/2020 9:22 AM SAFETY RISK LEAD New Bag 01/07/2020 8:27 AM SAFETY RISK LEAD 30 mL/hr 30 mL/hr documented in this encounter Care Teams Society Editor Relationship Specialty Start Date End Date Francisco Long MD PCP - General 02/23/17 05/15/22 Neil Ag MD PhD [address] [place] [address] Radiation Oncologist Radiation Oncology 12/17/18 [place] [address] [address] [place] [id number] Referring Physician General Surgery 12/17/18 [place] [address] [address] [facility] [address] [id number] Medical Oncologist/University Administrative Assistant Medical Oncology 12/17/18 [place] [address] [address] [place] [address] Consulting Physician Gastroenterology 01/07/20 documented as of this encounter
--- OUTSIDE RECORDS SUMMARY | 2024-11-16 13:06 | XMS_ITS | Encounter Summary ---
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 Name Role Phone Inez Long MD Primary Care Provider Neil Ag MD PhD Unavailable [phone] Ita Vazquez MD Unavailable Caron Mohan MD Unavailable Pebbles Felton MD Unavailable [phone] Reason for Visit * Reason Comments Shortness of Breath Encounter Details Date Type Department Care Team (Late st Contact Info) Description 01/07/2020 4:05 PM FORECLOSURE CLERK - 01/07/2020 5:00 PM FORECLOSURE CLERK Surgery [facility] [address] [place] [address] Pebbles Felton MD [address] [place] [id number] COLON REMOVAL SNARE Surgery Details Date/Time Status Location OR Service Patient Class Case Class Case Type Trauma Case? 01/07/2020 4:05 PM Posted [facility] ENDOSCOPY GI 01 Gastroenterology Inpatient Urgent - 24 hours Panel 1 Procedure LRB Anes Op Region Wound Class Comments COLON REMOVAL SNARE N/A Monitor Anesthesia Care Colon Class II - Clean Contaminated ESOPHAGOGASTRODUODENOSCOPY BIOPSY N/A Monitor Anesthesia Care Endo Add On Colon Biopsy N/A Choice Surgeon Surgeon Role Service Panel KarPebbles murillo MD Primary Gastroenterology 1 documented in this [...] on file 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 FORECLOSURE CLERK Gender Identity Not on file Sexual Orientation Not on file documented as of this encounter Last Filed Vital Signs Vital Sign Reading Time Taken Comments Blood Pressure 152/71 01/07/2020 11:13 AM FORECLOSURE CLERK Pulse 71 01/07/2020 11:13 AM FORECLOSURE CLERK Temperature 36.8 ??C (98.2 ??F) 01/07/2020 11:[address] Respiratory Rate 18 01/07/2020 11:13 AM FORECLOSURE CLERK Oxygen Saturation 96% 01/07/2020 11:13 AM FORECLOSURE CLERK Inhaled Oxygen Concentration - - Weight 86 kg (189 lb 9.5 oz) 01/05/2020 6:10 PM FORECLOSURE CLERK Height 170.2 cm (5' 7.01 ) 01/06/2020 4:38 AM CS T Body Mass Index 29.69 01/05/2020 6:10 PM FORECLOSURE CLERK documented in this encounter Discharge Summaries * Sudarshan Jones Jr., MD - 01/07/2020 12:25 PM CST [place], [place] Hospitalist Discharge Summary Patient Name: Jolene Gordon Patient : 1945 Room/Bed: [id number] Admission Date/Time: 01/05/2020 1:34 PM Discharge date: 01/07/2020 Admitting Physician: Jacklyn Spear MD Discharge Physician: Sudarshan Jones Jr., MD Consults: Treatment Team: Consulting Physician: Pebbles Felton MD Discharge Diagnoses: Principal Problem: Iron deficiency anemia due to chronic blood loss Active Problems: Essential hypertension 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 rheumatoid factor (CMS/HCC) Malignant neoplasm of upper-inner quadrant of left breast in female, estrogen receptor positive (CMS/HCC) Gastrointestinal hemorrhage associated with anorectal source Hospital Course: For full details of presentation including detailed history, past medical, surgical, social, family history and detailed ROS, as well as detailed exam and labs at time of presentation, please see the History and Physical. Iron deficiency anemia due to chronic blood loss Slow GI bleed suspected, FOBT positive in ED. GI consulted, EGD and colonoscopy were performed which showed a large hiatal hernia and multiple polyps, respectively. The hiatal hernia was determined to be the most likely cause of the chronic blood loss so Protonix was prescribed on discharge. The patient was instructed to stop taking her home methotrexate until she can get in touch with her duty officer because Protonix can increase serum levels of methotrexate so her dose might need adjustment. IV iron administered. Transfused a total of 2U of pRBCs. Issues to be addressed with Primary Care or Other Outpatient Physician (Unresulted Labs, Repeat Testing, Medication Adjustments, etc) GI follow-up planned to review the pathology results from the colonoscopy. PCP follow-up recommended in 2-3 weeks for repeat Hgb check. Discharge Exam: Vitals: 01/07/20 1015 01/07/20 1030 01/07/20 1100 01/07/20 1113 BP: 132/54 159/66 148/73 152/71 BP Location: Right arm Right arm Patient Position: Lying Lying Pulse: 75 77 72 71 Resp: Temp: 36.4 ??C (97.6 ??F) 36.8 ??C (98.2 ??F) TempSrc: Temporal Temporal SpO2: 100% 100% 94% 96% Weight: Height: Gen: awake, no acute distress, pleasant and cooperative Neuro: no focal deficits, CN II-XII grossly intact Eyes: extraocular movement intact, sclerae anicteric HENT: supple, trachea midline, no thrush, mucosa moist, no JVD CV: regular rate and rhythm; no murmurs, rubs, or gallops; no peripheral edema Pulm: clear to auscultation bilaterally; no wheezes, rales, or rhonchi GI: soft, non-tender, non-distended, normal bowel sounds, no organomegaly MSK: no cyanosis, clubbing, joint swelling, or joint erythema Skin: no visible erythema, acute bruising, or open wounds Psych: normal mood and affect Labs: (last 48 hours): Recent Results (from the past 48 hour(s)) CBC with auto differential Collection Time: 01/05/20 12:41 PM Result Value Ref Range WBC 9.7 3.8 - 9.9 K/cumm Hgb 7.4 (L) 11.9 - 15.5 g/dL Hct 25.0 (L) 35.6 - 45.5 % Plt 309 150 - 400 K/cumm MPV 9.4 9.1 - 12.3 fL RBC 3.34 (L) 3.90 - 5.20 M/cumm MCV 74.9 (L) 81.3 - 96.4 fL MCH 22.2 (L) 27.1 - 33.3 pg MCHC 29.6 (L) 32.3 - 35.7 g/dL RDW CV 22.2 (H) 11.1 - 14.9 % RDW SD 57.9 (H) 35.7 - 48.1 fL NRBC abs 0.02 (H) 0.00 - 0.01 K/cumm Comprehensive metabolic panel Collection Time: 01/05/20 12:41 PM Result Value Ref Range Sodium 135 135 - 145 mmol/L Potassium, pl 4.2 3.3 - 4.9 mmol/L Chloride 97 97 - 110 mmol/L CO2 25 22 - 32 mmol/L Anion gap 13 2 - 15 mmol/L BUN 24 8 - 25 mg/dL Creatinine 0.76 0.60 - 1.10 mg/dL Glucose 181 70 - 199 mg/dL Calcium 9.2 8.5 - 10.3 mg/dL Bilirubin, total 0.3 0.1 - 1.2 mg/dL Protein, pl 6.7 6.5 - 8.5 g/dL Albumin 4.2 3.5 - 5.0 g/dL Alk phos 66 40 - 130 Units/L ALT 34 7 - 45 Units/L AST 27 10 - 45 Units/L Pro B-type natriuretic peptide Collection Time: 01/05/20 12:41 PM Result Value Ref Range NT-proBNP 86 <=300 pg/mL Troponin T Collection Time: 01/05/20 12:41 PM Result Value Ref Range Troponin T <0.01 0.00 - 0.01 ng/mL Differential, auto Collection Time: 01/05/20 12:41 PM Result Value Ref Range Neutrophil abs 8.4 (H) 1.7 - 6.5 K/cumm Imm gran abs 0.1 0.0 - 0.1 K/cumm Lymphocyte abs 0.5 (L) 0.8 - 3.3 K/cumm Monocyte abs 0.5 0.2 - 0.8 K/cumm Eosinophil abs 0.2 0.0 - 0.5 K/cumm Basophil abs 0.0 0.0 - 0.1 K/cumm Neutrophil pct 86.5 % Imm gran pct 0.6 % Lymphocyte pct 5.2 % Monocyte pct 5.3 % Eosinophil pct 2.0 % Basophil pct 0.4 % eGFR Collection Time: 01/05/20 12:41 PM Result Value Ref Range GFR 78 mL/min/1.73 m2 Iron profile w/ IBC Collection Time: 01/05/20 12:41 PM Result Value Ref Range Iron 11 (L) 35 - 145 mcg/dL TIBC 449 (H) 250 - 400 mcg/dL Transferrin saturation 2 (L) 20 - 50 % Vitamin B12 Collection Time: 01/05/20 12:41 PM Result Value Ref Range Cyanocobalamin (Vit B12) 496 230 - 1,250 pg/mL Folate Collection Time: 01/05/20 12:41 PM Result Value Ref Range Folic acid 9.5 >=5.0 ng/mL ABO / Rh Confirmation Testing Collection Time: 01/05/20 12:41 PM Result Value Ref Range ABO/Rh Confirmation B Positive TSH reflex to free T4 Collection Time: 01/05/20 12:41 PM Result Value Ref Range TSH 2.85 0.30 - 4.20 mcIUnit/mL D-dimer, quantitative Collection Time: 01/05/20 12:42 PM Result Value Ref Range D-DIMER 291 <=499 ng/mL FEU Protime-INR Collection Time: 01/05/20 12:42 PM Result Value Ref Range PT 18.1 (H) 9.5 - 13.0 sec INR 1.6 (H) 0.9 - 1.2 aPTT Collection Time: 01/05/20 12:42 PM Result Value Ref Range aPTT 30 25 - 37 sec POC Guaiac occult blood, fecal, non-neoplasm Collection Time: 01/05/20 2:17 PM Result Value Ref Range Guaiac occult blood, fecal Positive QC Positive Control Acceptable ABO/Rh Collection Time: 01/05/20 4:00 PM Result Value Ref Range ABO/RH. B Positive Antibody screen Collection Time: 01/05/20 4:00 PM Result Value Ref Range Rocky, indirect, Gel Interpretation Negative ABSC Crossmatch Collection Time: 01/05/20 4:00 PM Result Value Ref Range Crossmatch Compatible Unit number for crossmatch [id number] Crossmatch Compatible Unit number for crossmatch [id number] Prepare RBC Collection Time: 01/05/20 6:43 PM Result Value Ref Range Unit Number [id number] Product code [id number] Blood Expiration Date [id number] Product Blood Type (for scanning) 5100 Product Blood Type OPOS Dispense Status DISPENSED Prepare RBC: 1 Units Collection Time: 01/05/20 7:00 PM Result Value Ref Range Units requested 1 Units requested Ready CBC with auto differential Collection Time: 01/06/20 4:32 AM Result Value Ref Range WBC 5.7 3.8 - 9.9 K/cumm Hgb 7.5 (L) 11.9 - 15.5 g/dL Hct 23.9 (L) 35.6 - 45.5 % Plt 235 150 - 400 K/cumm MPV 9.3 9.1 - 12.3 fL RBC 3.17 (L) 3.90 - 5.20 M/cumm MCV 75.4 (L) 81.3 - 96.4 fL MCH 23.7 (L) 27.1 - 33.3 pg MCHC 31.4 (L) 32.3 - 35.7 g/dL RDW CV 21.4 (H) 11.1 - 14.9 % RDW SD 58.3 (H) 35.7 - 48.1 fL NRBC abs 0.03 (H) 0.00 - 0.01 K/cumm Differential, auto Collection Time: 01/06/20 4:32 AM Result Value Ref Range Neutrophil abs 4.4 1.7 - 6.5 K/cumm Imm gran abs 0.0 0.0 - 0.1 K/cumm Lymphocyte abs 0.6 (L) 0.8 - 3.3 K/cumm Monocyte abs 0.4 0.2 - 0.8 K/cumm Eosinophil abs 0.2 0.0 - 0.5 K/cumm Basophil abs 0.0 0.0 - 0.1 K/cumm Neutrophil pct 77.6 % Imm gran pct 0.7 % Lymphocyte pct 11.1 % Monocyte pct 7.5 % Eosinophil pct 2.8 % Basophil pct 0.3 % Prepare RBC: 1 Units Collection Time: 01/06/20 4:16 PM Result Value Ref Range Units requested 1 Units requested Ready Unit Number [id number] Product code [id number] Blood Expiration Date [id number] Product Blood Type (for scanning) 7300 Product Blood Type BPOS Dispense Status DISPENSED Lactate dehydrogenase (LD) Collection Time: 01/07/20 3:25 AM Result Value Ref Range Lactate dehydrogenase (LDH) 167 100 - 250 Units/L CBC without differential Collection Time: 01/07/20 3:25 AM Result Value Ref Range WBC 6.6 3.8 - 9.9 K/cumm Hgb 8.6 (L) 11.9 - 15.5 g/dL Hct 27.9 (L) 35.6 - 45.5 % Plt 220 150 - 400 K/cumm MPV 9.9 9.1 - 12.3 fL RBC 3.57 (L) 3.90 - 5.20 M/cumm MCV 78.2 (L) 81.3 - 96.4 fL MCH 24.1 (L) 27.1 - 33.3 pg MCHC 30.8 (L) 32.3 - 35.7 g/dL RDW CV 21.1 (H) 11.1 - 14.9 % RDW SD 58.9 (H) 35.7 - 48.1 fL NRBC abs 0.00 0.00 - 0.01 K/cumm Basic metabolic panel Collection Time: 01/07/20 3:25 AM Result Value Ref Range Sodium 142 135 - 145 mmol/L Potassium, pl 3.4 3.3 - 4.9 mmol/L Chloride 105 97 - 110 mmol/L CO2 24 22 - 32 mmol/L Anion gap 13 2 - 15 mmol/L BUN 8 8 - 25 mg/dL Creatinine 0.63 0.60 - 1.10 mg/dL Glucose 108 70 - 199 mg/dL Calcium 8.8 8.5 - 10.3 mg/dL Magnesium Collection Time: 01/07/20 3:25 AM Result Value Ref Range Magnesium 2.0 1.4 - 2.5 mg/dL Phosphorus Collection Time: 01/07/20 3:25 AM Result Value Ref Range Phosphorus, pl 4.4 2.3 - 4.5 mg/dL eGFR Collection Time: 01/07/20 3:25 AM Result Value Ref Range GFR 89 mL/min/1.73 m2 POCT glucose Collection Time: 01/07/20 7:03 AM Result Value Ref Range Glucose, POC 143 (H) 71 - 98 mg/dL Radiology: Xr Chest Pa Lateral 2 Views Result Date: 01/05/2020 Narrative: EXAMINATION: XR CHEST PA LATERAL 2 VIEWS ORDERING HEALTHCARE PROVIDER: ANA LAUREN HISTORY: Shortness of breath for 2 months. TECHNIQUE: Frontal and lateral radiographs of formerly [facility]. COMPARISON: Chest x-ray 12/02/2019 FINDINGS: LUNGS/PLEURA: There is no airspace consolidation or pleural effusion. HEART/MEDIASTINUM: The cardiomediastinal silhouette and pulmonary vasculatureare normal. HARDWARE/LINES/TUBES: None. BONES: No acute findings. OTHER: Moderate to large hiatal hernia. Impression: 1. No acute abnormality. 2. Moderate to large hiatal hernia. Electronically signed by: Jonathan Barber M.D. Us Vein Duplex Lower Extremity Bilateral Complete Addendum Date: 12/30/2019 Addendum: This addendum supersedes the initial report. Spectral Doppler sonographic evaluation not performed.Electronically signed by: Saqib Potter M.D. Result Date: 12/30/2019 Narrative: EXAMINATION: US VEIN DUPLEX LOWER EXTREMITY BILATERAL COMPLETE ORDERING HEALTHCARE PROVIDER: INEZ LONG HISTORY: Other pulmonary embolism without acute cor pulmonale. Pulmonary embolism unspecified chronicity. Right lower extremity chronic DVT 2016 and popliteal and posterior tibial veins. Blood clots in lungs seen on CT Sunday last week. COMPARISON: None available TECHNIQUE: Grayscale, color and spectral Doppler sonographic evaluation of the bilateral lower extremity deep venous systems from the common femoral to the popliteal vein with compression and augmentation. FINDINGS:Right: There is no evidence of thrombosis in the interrogated deep venous system of the right lower extremity. Left: There is no evidence of thrombosis in the interrogated deep venous system of the left lower extremity. Impression: Negative for lower extremity deep venous thrombosis. Electronically signed by: Saqib Potter M.D. Medications: Your medication list START taking these medications Instructions Last Dose Given Next Dose Due pantoprazole DR 40 mg EC tablet Commonly known as: PROTONIX Take 1 tablet (40 mg total) by mouth daily CONTINUE taking these medications Instructions Last Dose Given Next Dose Due apixaban 5 mg tablet Commonly known as: ELIQUIS Take 1 tablet (5 mg total) by mouth 2 (two) times a day carvediloL 6.25 mg tablet Commonly known as: COREG Take 1 tablet (6.25 mg total) by mouth 2 (two) times a day with meals letrozole 2.5 mg tablet Commonly known as: FEMARA losartan-hydroCHLOROthiazide 100-12.5 mg per tablet Commonly known as: HYZAAR TAKE 1 TABLET BY MOUTH DAILY STOP taking these medications methotrexate 2.5 mg tablet Where to Get Your Medications These medications were sent to [id number] - [place] [id number] AT [place] [address], [facility] [id number] ?? pantoprazole DR 40 mg EC tablet Patient Instructions: Activity: activity as tolerated Diet: regular diet Disposition: home Follow-up Contact Information for Follow-ups Pebbles Felton MD Specialty: Gastroenterology, Internal Medicine Relationship: Consulting Physician [address] [place] [address] Next Steps: Follow up Instructions: Please call to schedule a follow-up appointment in 2-3 weeks. Questions: Instructions for follow-up (appointment date and time): Please call to schedule a follow-up appointment in 2-3 weeks. To provider: PEBBLES FELTON Process Instructions: The follow up with provider order should be used to give patients instructions to follow up with an established provider. A referral order should be placed to instruct patients to follow up with a new, non- established provider. If you can???t find the provider, please use: ASHLEY GARCIA and put the name in the comments. Inez Long MD Specialty: Internal Medicine Relationship: [facility] [facility] [place] Attributed PCP [address] [place] [address] Next Steps: Follow up Instructions: Please call to schedule a follow-up appointment in 2-3 weeks for repeat blood work. Questions: To provider: INEZ LONG Instructions for follow-up (appointment date and time): Please call to schedule a follow-up appointment in 2-3 weeks for repeat blood work. Process Instructions: The follow up with provider order should be used to give patients instructions to follow up with an established provider. A referral order should be placed to instruct patients to follow up with a new, non- established provider. If you can???t find the provider, please use: ASHLEY GARCIA and put the name in the comments. Total time spent on day of discharge 25 minutes Signed: Sudarshan Jones Jr., MD Internal Medicine - Hospitalist [facility] - Adult Hospitalist Service 01/07/2020 12:25 PM Cc: Inez Long MD CLOSURE CLERK documented in this encounter Discharge Instructions * Discharge Instructions* Mary Aparicio RN - 01/07/2020 1:30 PM FORECLOSURE CLERK Anemia WHAT YOU NEED TO KNOW: Anemia is a low number of red blood cells or a low amount of hemoglobin in your red blood cells. Hemoglobin is a protein that helps carry oxygen throughout your body. Red blood cells use iron to create hemoglobin. Anemia may develop if your body does not have enough iron. It may also develop if your body does not make enough red blood cells or they faster than your body can make them. DISCHARGE INSTRUCTIONS: Call 911 or have someone call 911 for any of the following: ?? You lose consciousness. ?? You have severe chest pain. Seek care immediately if: ?? You have dark or bloody bowel movements. Contact your healthcare provider if: ?? Your symptoms are worse, even after treatment. ?? You have questions or concerns about your condition or care. Medicines: ?? Iron or folic acid supplements help increase your red blood cell and hemoglobin levels. ?? Vitamin B12 injections may help boost your red blood cell level and decrease your symptoms. Ask your healthcare provider how to inject B12. ?? Take your medicine as directed. Contact your healthcare provider if you think your medicine is not helping or if you have side effects. Tell him of her if you are allergic to any medicine. Keep a list of the medicines, vitamins, and herbs you take. Include the amounts, and when and why you take them. Bring the list or the pill bottles to follow-up visits. Carry your medicine list with you in case of an emergency. Prevent anemia: Eat healthy foods rich in iron and vitamin C. Nuts, meat, dark leafy green vegetables, and beans are high in iron and protein. Vitamin C helps your body absorb iron. Foods rich in vitamin C include oranges and other citrus fruits. Ask your healthcare provider for a list of other foods that are high in iron or vitamin C. Ask if you need to be on a special diet. Follow up with your healthcare provider as directed: Write down your questions so you remember to ask them during your visits. ?? 2017 [employer] Information is for End User's use only and may not be sold, redistributed or otherwise used for commercial purposes. All illustrations and images included in CareNotes?? are the copyrighted property of [employer] or [employer]. The above information is an braid cutter only. It is not intended as medical advice for individual conditions or treatments. Talk to your doctor, nurse or pharmacist before following any medical regimen to see if it is safe and effective for you. CLOSURE CLERK documented in this encounter Medications at Time of Discharge letrozole (FEMARA) 2.5 mg tablet Take 1 tablet (2.5 mg total) by mouth daily apixaban (ELIQUIS) 5 mg tabletIndications :deep venous thrombosis Take 1 tablet (5 mg total) by mouth 2 (two) times a day 180 tablet 3 12/09/2019 03/09/2021 carvedilol (COREG) 6.25 mg tablet Take 1 tablet (6.25 mg total) by mouth 2 (two) times a day with meals 180 tablet 3 12/09/2019 12/23/2020 losartan-hydroCHL OROthiazide (HYZAAR) 100-12.5 mg per tablet TAKE 1 TABLET BY MOUTH DAILY 90 tablet 3 09/30/2019 09/24/[address] (PROTONIX) 40 mg EC tablet Take 1 tablet (40 mg total) by mouth daily 30 tablet 11 01/07/2020 01/08/2020 documented as of this encounter Ordered Prescriptions Prescription Sig Dispense Quantity Refills Last Filled Start Date End Date pantoprazole DR (PROTONIX) 40 mg EC tablet Take 1 tablet (40 mg total) by mouth daily 30 tablet 11 01/07/2020 01/08/2020 documented in this encounter Discharge Disposition Disposition Code Departure Means Destination Discharge to home or self care documented in this encounter Progress Notes * Sudarshan Jones Jr., MD - 01/06/2020 3:51 PM CST Iron deficiency anemia due to chronic blood loss Suspect slow GI bleed, concerning to be caused by Eliquis started recently for acute PE. FOBT positive in ED. GI consulted, EGD and colonoscopy planned tomorrow. IV iron ordered. Transfuse as needed to for Hgb <8.0 per GI recs, transfused with 1U of pRBCs yesterday, will give another 1U today. History of breast cancer Home letrozole on hold because of increased risk of thrombosis. Essential hypertension Continue home Coreg, losartan and HCTZ on hold while patient is normotensive. DVT PPx - pharmacologic PPx held because of suspected active GI bleed, SCDs ordered CLOSURE CLERK * Carol Chan RN - 01/06/2020 2:02 PM CST Discussed discharge plan with patient and her . Live in their own home and she is independent with all ADL's prior to admission. Expecting EGD and Colonoscopy 01-07-20 then discharge to home. No barriers to discharge identified. 01/06/20 1400 Information Information Obtained From Patient Referral Data Referral Source Self referral Referral Reason Discharge Planning Prior to Admission Primary Caregiver Self Support System Spouse/Significant Other Support system contact info (name, phone, availablity) [facility] No Durable Medical Equipment Cane (single prong);Walker (wheeled) Living Arrangements Spouse/significant other Type of Residence Private residence Steps in home? Yes, Outside of home Number of steps inside: 0 steps Number of steps outside: 2 steps Medication management (self) Financial Resource Income Care Home/Pension Financial assistance (na) Payor Source Medicare;Supplemental Potential Discharge Needs Home Health (na) Anticipated discharge level of care Private residence Pt/Family agrees with Anticipated Level of Care Yes Patient expects to be discharged to: Private residence Community Resources (na) Dialysis No Behavioral Health Services No CLOSURE CLERK * Pebbles Felton MD - 01/06/2020 9:57 AM CST GI Daily Progress Note Date of visit: 01/06/2020 Subjective: Last 24 hours records reviewed. Patient is doing better today with better breathing although her hemoglobin is still low after the 1 unit blood transfusion yesterday. She has no pain. No nausea. No vomiting. She had 1 normal bowel movement. ROS: GENERAL: no fever, appetite is good. RESPIRATORY: no shortness of breath, no cough. SKIN: no itching, no rash. EYES: no redness, no itching, no visual changes. Objective: Vital signs in last 24 hours: Temp: [36.2 ??C (97.2 ??F)-37.9 ??C (100.2 ??F)] 36.2 ??C (97.2 ??F) Pulse: [80-94] 94 Resp: [16-18] 18 BP: (114-139)/(47-71) 139/71 Intake/Output last 3 shifts: I/O last 3 completed shifts: In: 1358.3 [I.V.:987.5; Blood:370.8] Out: - Physical Exam: Patient is alert and oriented to time and place and self. Patient appears comfortable. Eyes: no jaundice. Lymphatics: no submandibular and no subclavicular lymphadenopathy. Lungs: CTA anteriorly. ENT: no mouth ulcers. GI: abdomen is soft, no distention, no tenderness, bowel sounds positive. Musculos keletal: no joint swelling, no edema. Skin: no rash. Psych: mood seems normal. No confusion. Labs and Imaging: Labs and X rays reviewed. Recent Results (from the past 24 hour(s)) CBC with auto differential Collection Time: 01/05/20 12:41 PM Result Value Ref Range WBC 9.7 3.8 - 9.9 K/cumm Hgb 7.4 (L) 11.9 - 15.5 g/dL Hct 25.0 (L) 35.6 - 45.5 % Plt 309 150 - 400 K/cumm MPV 9.4 9.1 - 12.3 fL RBC 3.34 (L) 3.90 - 5.20 M/cumm MCV 74.9 (L) 81.3 - 96.4 fL MCH 22.2 (L) 27.1 - 33.3 pg MCHC 29.6 (L) 32.3 - 35.7 g/dL RDW CV 22.2 (H) 11.1 - 14.9 % RDW SD 57.9 (H) 35.7 - 48.1 fL NRBC abs 0.02 (H) 0.00 - 0.01 K/cumm Comprehensive metabolic panel Collection Time: 01/05/20 12:41 PM Result Value Ref Range Sodium 135 135 - 145 mmol/L Potassium, pl 4.2 3.3 - 4.9 mmol/L Chloride 97 97 - 110 mmol/L CO2 25 22 - 32 mmol/L Anion gap 13 2 - 15 mmol/L BUN 24 8 - 25 mg/dL Creatinine 0.76 0.60 - 1.10 mg/dL Glucose 181 70 - 199 mg/dL Calcium 9.2 8.5 - 10.3 mg/dL Bilirubin, total 0.3 0.1 - 1.2 mg/dL Protein, pl 6.7 6.5 - 8.5 g/dL Albumin 4.2 3.5 - 5.0 g/dL Alk phos 66 40 - 130 Units/L ALT 34 7 - 45 Units/L AST 27 10 - 45 Units/L Pro B-type natriuretic peptide Collection Time: 01/05/20 12:41 PM Result Value Ref Range NT-proBNP 86 <=300 pg/mL Troponin T Collection Time: 01/05/20 12:41 PM Result Value Ref Range Troponin T <0.01 0.00 - 0.01 ng/mL Differential, auto Collection Time: 01/05/20 12:41 PM Result Value Ref Range Neutrophil abs 8.4 (H) 1.7 - 6.5 K/cumm Imm gran abs 0.1 0.0 - 0.1 K/cumm Lymphocyte abs 0.5 (L) 0.8 - 3.3 K/cumm Monocyte abs 0.5 0.2 - 0.8 K/cumm Eosinophil abs 0.2 0.0 - 0.5 K/cumm Basophil abs 0.0 0.0 - 0.1 K/cumm Neutrophil pct 86.5 % Imm gran pct 0.6 % Lymphocyte pct 5.2 % Monocyte pct 5.3 % Eosinophil pct 2.0 % Basophil pct 0.4 % eGFR Collection Time: 01/05/20 12:41 PM Result Value Ref Range GFR 78 mL/min/1.73 m2 Iron profile w/ IBC Collection Time: 01/05/20 12:41 PM Result Value Ref Range Iron 11 (L) 35 - 145 mcg/dL TIBC 449 (H) 250 - 400 mcg/dL Transferrin saturation 2 (L) 20 - 50 % Vitamin B12 Collection Time: 01/05/20 12:41 PM Result Value Ref Range Cyanocobalamin (Vit B12) 496 230 - 1,250 pg/mL Folate Collection Time: 01/05/20 12:41 PM Result Value Ref Range Folic acid 9.5 >=5.0 ng/mL ABO / Rh Confirmation Testing Collection Time: 01/05/20 12:41 PM Result Value Ref Range ABO/Rh Confirmation B Positive TSH reflex to free T4 Collection Time: 01/05/20 12:41 PM Result Value Ref Range TSH 2.85 0.30 - 4.20 mcIUnit/mL D-dimer, quantitative Collection Time: 01/05/20 12:42 PM Result Value Ref Range D-DIMER 291 <=499 ng/mL FEU Protime-INR Collection Time: 01/05/20 12:42 PM Result Value Ref Range PT 18.1 (H) 9.5 - 13.0 sec INR 1.6 (H) 0.9 - 1.2 aPTT Collection Time: 01/05/20 12:42 PM Result Value Ref Range aPTT 30 25 - 37 sec POC Guaiac occult blood, fecal, non-neoplasm Collection Time: 01/05/20 2:17 PM Result Value Ref Range Guaiac occult blood, fecal Positive QC Positive Control Acceptable ABO/Rh Collection Time: 01/05/20 4:00 PM Result Value Ref Range ABO/RH. B Positive Antibody screen Collection Time: 01/05/20 4:00 PM Result Value Ref Range Rocky, indirect, Gel Interpretation Negative ABSC Crossmatch Collection Time: 01/05/20 4:00 PM Result Value Ref Range Crossmatch Compatible Unit number for crossmatch [id number] Prepare RBC Collection Time: 01/05/20 6:43 PM Result Value Ref Range Unit Number [id number] Product code [id number] Blood Expiration Date [id number] Product Blood Type (for scanning) 5100 Product Blood Type OPOS Dispense Status DISPENSED Prepare RBC: 1 Units Collection Time: 01/05/20 7:00 PM Result Value Ref Range Units requested 1 Units requested Ready CBC with auto differential Collection Time: 01/06/20 4:32 AM Result Value Ref Range WBC 5.7 3.8 - 9.9 K/cumm Hgb 7.5 (L) 11.9 - 15.5 g/dL Hct 23.9 (L) 35.6 - 45.5 % Plt 235 150 - 400 K/cumm MPV 9.3 9.1 - 12.3 fL RBC 3.17 (L) 3.90 - 5.20 M/cumm MCV 75.4 (L) 81.3 - 96.4 fL MCH 23.7 (L) 27.1 - 33.3 pg MCHC 31.4 (L) 32.3 - 35.7 g/dL RDW CV 21.4 (H) 11.1 - 14.9 % RDW SD 58.3 (H) 35.7 - 48.1 fL NRBC abs 0.03 (H) 0.00 - 0.01 K/cumm Differential, auto Collection Time: 01/06/20 4:32 AM Result Value Ref Range Neutrophil abs 4.4 1.7 - 6.5 K/cumm Imm gran abs 0.0 0.0 - 0.1 K/cumm Lymphocyte abs 0.6 (L) 0.8 - 3.3 K/cumm Monocyte abs 0.4 0.2 - 0.8 K/cumm Eosinophil abs 0.2 0.0 - 0.5 K/cumm Basophil abs 0.0 0.0 - 0.1 K/cumm Neutrophil pct 77.6 % Imm gran pct 0.7 % Lymphocyte pct 11.1 % Monocyte pct 7.5 % Eosinophil pct 2.8 % Basophil pct 0.3 % Xr Chest Pa Lateral 2 Views Result Date: 01/05/2020 1. No acute abnormality. 2. Moderate to large hiatal hernia. Electronically signed by: Jonathan Barber M.D. GI IMPRESSION: 1. Severe iron deficiency anemia. 2. Occult blood in the stool. 3. Likely associated bone more suppression from methotrexate use and chronic anemia from rheumatoidarthritis. GI PLAN/RECOMMENDATIONS: 1. Will check LDH which may be helpful indication for hemolysis.. 2. Intravenous iron today. 3. Will plan upper endoscopy and colonoscopy for tomorrow. 4. Further plans to follow. 5. Can stop intravenous fluids. Pebbles Felton MD CLOSURE CLERK * Melisa Boss, RD - 01/06/2020 4:39 AM CST Nutrition Assessment Reason for Assessment: Screened at Nutrition Risk and Initial Nutrition Assessment Encounter Date: 01/06/20 4:40 AM Nutrition Assessment and Plan: Patient is a 74 y.o. female. Admit Dx: Iron deficiency anemia due to chronic blood loss [D50.0] Gastrointestinal hemorrhage associated with anorectal source [K62.5]. Admitted on 01/05/2020, current LOS is 0 days. Nutrition Screen What diet do you follow at home?: Regular Have You Recently Lost Weight Without Trying?: No Poor Oral Intake for Four or More Days Prior to Admission: No Current diet order: NPO Diet Pt intake is inadequate. PO intakes: npo 01/05 Wt Readings from Last 10 Encounters: 01/05/20 86 kg (189 lb 9.5 oz) 01/01/20 85.3 kg (188 lb) 12/09/19 83.9 kg (185 lb) 12/02/19 84.3 kg (185 lb 14.4 oz) 12/01/19 84.8 kg (187 lb) 11/14/19 85.2 kg (187 lb 12.8 oz) 09/25/19 86.2 kg (190 lb) 08/11/19 87 kg (191 lb 12.8 oz) 03/17/19 87.1 kg (192 lb) 01/29/19 84.8 kg (187 lb) Nutrition Diagnosis 1: Inadequate energy intake Related to: Nausea, NPO status Evidenced by: Physical finding ?? Interventions: Boulevard diet preferences within the limits of nutrition care order ?? Monitoring and Evaluation: Diet advancement, Discharge plans, Labs, PO intake ?? Goals: Advance to oral intake as medically able ? Estimated needs: ?? Total Kcal/kg Estimated Needs : 2150 based on Kcal/k. Type of Weight Used for Estimated Kcals: Current ?? MS Total Energy Needs: 7 kcal using Stress Factor: 1.25 Activity Factor: 1.2 ?? [place] State Total Energy Needs + Fever Factor: 2096 ?? Total Protein Estimated Needs (gm): 103.2 Protein Needs Based on g/k.2 Type of Weight Used for Estimated Protein : Current. ?? Total Fluid Estimated Needs: 2150 Fluid Needs Based on : 25 ml/kg. Objective Anthropometrics Weight: 86 kg (189 lb 9.5 oz) Admission Weight : 86 kg Weight Change: 0.72 kg (1.59 lbs) IBW/kg (Calculated) : 61.3 kg Height: 170.2 cm (5' 7.01 ) Weight in (lb) to have BMI = 25: 159.3 BMI (Calculated): 29.7 3 Day I/O Summary No intake/output data recorded. Temp: 37.2 ??C (99 ??F) Past Medical History: Diagnosis Date ??? HX OTHER MEDICAL B/L arthroscopic knee surg ??? HX OTHER MEDICAL RA ??? HX OTHER MEDICAL R knee replacement ??? HX OTHER MEDICAL blood clot- right leg ??? Hyperlipidemia Hyperlipidemia ??? Hypertension Hypertension ??? Screening mammogram, encounter for 1945 ??? Uterine cancer (CMS/HCC) 04/2018 Medications and Lab Review: Scheduled Meds: ferric gluconate, 125 mg of elemental iron, intravenous, Once Continuous Infusions: sodium chloride 0.9%, 50 mL/hr, Last Rate: 50 mL/hr (01/05/20 1754) sodium chloride 0.9%, 0-250 mL Sodium Date Value Ref Range Status 01/05/2020 135 135 - 145 mmol/L Final Potassium, pl Date Value Ref Range Status 01/05/2020 4.2 3.3 - 4.9 mmol/L Final BUN Date Value Ref Range Status 01/05/2020 24 8 - 25 mg/dL Final Creatinine Date Value Ref Range Status 01/05/2020 0.76 0.60 - 1.10 mg/dL Final Albumin Date Value Ref Range Status 01/05/2020 4.2 3.5 - 5.0 g/dL Final Calcium Date Value Ref Range Status 01/05/2020 9.2 8.5 - 10.3 mg/dL Final Lab Results Component Value Date HGBA1C 6.6 (H) 09/10/2019 POC Glucose: na(01/06) Nursing Assessment: Last BM Date: 01/05/20 Bowel Sounds (All Quadrants): Active Sebastián Scale Score: 21 Nutrition Follow-Up : 01/09/[address],LDN CLOSURE CLERK documented in this encounter H&P Notes * Neeru Gonzalez MD - 01/06/2020 5:43 AM CST General Medicine History and Physical Date of Encounter 01/06/2020 PCP: Inez Long SUBJECTIVE Patient is a 74 y.o. female with a PMH of recently diagnosed PE on 12/02/2019 on Eliquis, hypertension, RA on methotrexate with a chief complaint of shortness of breath and fatigue. HPI: Per patient she has had shortness of breath and fatigue since she developed her PE in November. She states since then her symptoms have been worsening. She states recently a few friends have told her that she appeared pale. She also said having black stools however she states she was on iron supplementation for years. Denied any grossly bloody stool. Denied any hematuria or bleeding anywhere else.She came to the ED for evaluation. In the ED, patient was found to have a hemoglobin of 7.4. Guaiac was positive. GI was consulted andpatient was admitted for further care. Currently patient states she feels about the same. Denies any tobacco, alcohol or street drug use. Past Medical History: Diagnosis Date ??? HX [...] CATARACT EXTRACTION Cataract extraction ??? HYSTERECTOMY 06/2018 Medications Prior to Admission Medication Sig Dispense Refill Last Dose ??? apixaban (ELIQUIS) 5 mg tablet Take 1 tablet (5 mg total) by mouth 2 (two) times a day 180 tablet 3 01/05/2020 at Unknown time ??? carvedilol (COREG) 6.25 mg tablet Take 1 tablet (6.25 mg total) by mouth 2 (two) times a day with meals 180 tablet 3 01/05/2020 at Unknown time ??? letrozole (FEMARA) 2.5 mg tablet Take 2.5 mg by mouth daily 01/05/2020 at Unknown time ??? losartan-hydroCHLOROthiazide (HYZAAR) 100-12.5 mg per tablet TAKE 1 TABLET BY MOUTH DAILY 90 tablet 3 01/05/2020 at Unknown time ??? methotrexate 2.5 mg tablet Take 12.5 mg by mouth every 7 days sunday 3 Past Week at Unknown time Allergies Allergen Reactions ??? Atorvastatin Muscle pain [...] Other Father's Sister mastectomy. ??CA; Review of Systems Please see HPI for pertinent positives and negatives. Otherwise patient states her appetite is stable. She states she has lost a few lb, 5 over time. Ten point review of systems completed and otherwise negative. OBJECTIVE Vitals: Arrival Vitals [01/05/20 1206] Temp 36.7 ??C (98.1 ??F) Pulse 83 Resp 18 BP 115/60 SpO2 97 % Temp src Temporal Heart Rate Source Patient Position BP Location FiO2 (%) 24hr Min/Max: Temp Min: 36.7 ??C (98 ??F) Max: 37.9 ??C (100.2 ??F) Pulse Min: 80 Max: 91 BP Min: 114/53 Max: 130/58 Resp Min: 16 Max: 18 SpO2 Min: 96 % Max: 100 % Most Recent : Vitals: 01/05/20 2155 BP: 124/57 Pulse: 84 Resp: 16 Temp: 37.2 ??C (99 ??F) SpO2: 96% I/O this shift: In: 370.8 [Blood:370.8] Out: - PHYSICAL EXAM GENERAL: No acute distress, A&O x4 HEENT: Slight conjunctival pallor, mucous membranes moist NEURO: PERRL, EOMI, moves all extremities CVS: S1-S2, regular rate and rhythm LUNGS: Decreased breath sounds bilaterally, no wheezing, rhonchi or rales ABDOMEN: Positive bowel sounds, soft, nontender EXT: No lower extremity edema or tenderness to palpation, palmar pallor SKIN: Warm, dry Lab/Radiology/Diagnostic Review: Recent Results (from the past 24 hour(s)) CBC with auto differential Collection Time: 01/05/20 12:41 PM Result Value Ref Range WBC 9.7 3.8 - 9.9 K/cumm Hgb 7.4 (L) 11.9 - 15.5 g/dL Hct 25.0 (L) 35.6 - 45.5 % Plt 309 150 - 400 K/cumm MPV 9.4 9.1 - 12.3 fL RBC 3.34 (L) 3.90 - 5.20 M/cumm MCV 74.9 (L) 81.3 - 96.4 fL MCH 22.2 (L) 27.1 - 33.3 pg MCHC 29.6 (L) 32.3 - 35.7 g/dL RDW CV 22.2 (H) 11.1 - 14.9 % RDW SD 57.9 (H) 35.7 - 48.1 fL NRBC abs 0.02 (H) 0.00 - 0.01 K/cumm Comprehensive metabolic panel Collection Time: 01/05/20 12:41 PM Result Value Ref Range Sodium 135 135 - 145 mmol/L Potassium, pl 4.2 3.3 - 4.9 mmol/L Chloride 97 97 - 110 mmol/L CO2 25 22 - 32 mmol/L Anion gap 13 2 - 15 mmol/L BUN 24 8 - 25 mg/dL Creatinine 0.76 0.60 - 1.10 mg/dL Glucose 181 70 - 199 mg/dL Calcium 9.2 8.5 - 10.3 mg/dL Bilirubin, total 0.3 0.1 - 1.2 mg/dL Protein, pl 6.7 6.5 - 8.5 g/dL Albumin 4.2 3.5 - 5.0 g/dL Alk phos 66 40 - 130 Units/L ALT 34 7 - 45 Units/L AST 27 10 - 45 Units/L Pro B-type natriuretic peptide Collection Time: 01/05/20 12:41 PM Result Value Ref Range NT-proBNP 86 <=300 pg/mL Troponin T Collection Time: 01/05/20 12:41 PM Result Value Ref Range Troponin T <0.01 0.00 - 0.01 ng/mL Differential, auto Collection Time: 01/05/20 12:41 PM Result Value Ref Range Neutrophil abs 8.4 (H) 1.7 - 6.5 K/cumm Imm gran abs 0.1 0.0 - 0.1 K/cumm Lymphocyte abs 0.5 (L) 0.8 - 3.3 K/cumm Monocyte abs 0.5 0.2 - 0.8 K/cumm Eosinophil abs 0.2 0.0 - 0.5 K/cumm Basophil abs 0.0 0.0 - 0.1 K/cumm Neutrophil pct 86.5 % Imm gran pct 0.6 % Lymphocyte pct 5.2 % Monocyte pct 5.3 % Eosinophil pct 2.0 % Basophil pct 0.4 % eGFR Collection Time: 01/05/20 12:41 PM Result Value Ref Range GFR 78 mL/min/1.73 m2 Iron profile w/ IBC Collection Time: 01/05/20 12:41 PM Result Value Ref Range Iron 11 (L) 35 - 145 mcg/dL TIBC 449 (H) 250 - 400 mcg/dL Transferrin saturation 2 (L) 20 - 50 % Vitamin B12 Collection Time: 01/05/20 12:41 PM Result Value Ref Range Cyanocobalamin (Vit B12) 496 230 - 1,250 pg/mL Folate Collection Time: 01/05/20 12:41 PM Result Value Ref Range Folic acid 9.5 >=5.0 ng/mL ABO / Rh Confirmation Testing Collection Time: 01/05/20 12:41 PM Result Value Ref Range ABO/Rh Confirmation B Positive D-dimer, quantitative Collection Time: 01/05/20 12:42 PM Result Value Ref Range D-DIMER 291 <=499 ng/mL FEU Protime-INR Collection Time: 01/05/20 12:42 PM Result Value Ref Range PT 18.1 (H) 9.5 - 13.0 sec INR 1.6 (H) 0.9 - 1.2 aPTT Collection Time: 01/05/20 12:42 PM Result Value Ref Range aPTT 30 25 - 37 sec POC Guaiac occult blood, fecal, non-neoplasm Collection Time: 01/05/20 2:17 PM Result Value Ref Range Guaiac occult blood, fecal Positive QC Positive Control Acceptable ABO/Rh Collection Time: 01/05/20 4:00 PM Result Value Ref Range ABO/RH. B Positive Antibody screen Collection Time: 01/05/20 4:00 PM Result Value Ref Range Rocky, indirect, Gel Interpretation Negative ABSC Crossmatch Collection Time: 01/05/20 4:00 PM Result Value Ref Range Crossmatch Compatible Unit number for crossmatch [id number] Prepare RBC Collection Time: 01/05/20 6:43 PM Result Value Ref Range Unit Number [id number] Product code [id number] Blood Expiration Date [id number] Product Blood Type (for scanning) 5100 Product Blood Type OPOS Dispense Status DISPENSED Prepare RBC: 1 Units Collection Time: 01/05/20 7:00 PM Result Value Ref Range Units requested 1 Units requested Ready Xr Chest Pa Lateral 2 Views Result Date: 01/05/2020 Narrative: EXAMINATION: XR CHEST PA LATERAL 2 VIEWS ORDERING HEALTHCARE PROVIDER: ANA LAUREN HISTORY: Shortness of breath for 2 months. TECHNIQUE: [facility]PARISON: Chest x-ray 12/02/2019 FINDINGS: LUNGS/PLEURA: There is no airspace consolidation or pleural effusion. HEART/MEDIASTINUM: The cardiomediastinal silhouette and pulmonary vasculatureare normal. HARDWARE/LINES/TUBES: None. BONES: No acute findings. OTHER: Moderate to large hiatal hernia. Impression: 1. No acute abnormality. 2. Moderate to large hiatal hernia. Electronically signed by: Jonathan Barber M.D. ASSESSMENT/PLAN Principal Problem: Iron deficiency anemia due to chronic blood loss Active Problems: Essential hypertension 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 rheumatoid factor (CMS/HCC) Malignant neoplasm of upper-inner quadrant of left breast in female, estrogen receptor positive (CMS/HCC) * Iron deficiency anemia due to chronic blood loss Assessment & Plan Likely GI source as patient has positive guaiac. Hemoglobin was as high as 11.1 in November. Patienthas been seen by GI and 1 unit of PRBCs ordered. Awaiting repeat hemoglobin. Ferrlecit ordered by Dr. Felton already. Continue to monitor. Will hold anticoagulation for now. Malignant neoplasm of upper-inner quadrant of left breast in female, estrogen receptor positive (CMS/HCC) Assessment & Plan Hold letrozole for now as it increases risk for thromboembolism. 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 rheumatoid factor (CMS/HCC) Assessment & Plan Patient is on methotrexate which she takes on Sunday. Essential hypertension Assessment & Plan Currently normotensive. Continue carvedilol with hold parameters. Holding losartan and hydrochlorothiazide for now. Diet. NPO DVT Prophylaxis. SCD Code status. Full Estimated length of stay less than 2 midnights. Clinical Decision Making Complexity: Moderate Time spent 52 minutes CLOSURE CLERK documented in this encounter Procedure Notes * Pebbles Felton MD - 01/07/2020 9:12 AM CSTAssociated Order(s): [facility] Patient Name: Jolene Gordon Procedure Date: 01/07/2020 9:12 AM Date of : 1945 Admit Type: Inpatient Age: 74 Gender: Female Attending MD: Pebbles Felton M.D. Room: [facility] ENDOSCOPY ROOM 1 Note Status: Finalized Patient Profile: This is a 74 year old female. Patient admitted with the severe anemia and noted occult blood in the stool. Procedure: Colonoscopy Indications: Heme positive stool, Iron deficiency anemia Referring MD: Inez Long M.D. Providers: Pebbles Felton M.D. Impression: [...] - Repeat colonoscopy in 3 years for screening purposes. - Continue present medications. - Resume Eliquis [...] procedure. The benefits, risks and alternatives of the procedure and sedation were discussed and informed consent was obtained. All questions were answered. Please refer to the signed informed consent document in the medical record. The scope was passed under direct vision. The Pediatric Colonoscope PCF-H190L [id number] was introduced through the anus and advanced to the the cecum, identified by appendiceal orifice and ileocecal valve. The bowel preparation used was Miralax. The bowel preparation used was bisacodyl tablets. The quality of the bowel preparation was excellent. Bowel prep was administered using a split dose. [...] three hemostatic clips were successfully placed (MR conditional). There was no bleeding at the end of the procedure. Multiple small-mouthed diverticula were found in the sigmoid colon. Internal hemorrhoids were found during retroflexion. The hemorrhoids were small. Electronically signed by Pebbles Felton M.D. Pebbles Felton M.D. 01/07/2020 10:08:57 AM Number of Addenda: 0 Note Initiated On: 01/07/2020 9:12 AM Procedure Code(s): --- Professional --- 56516, Colonoscopy, flexible; with removal of tumor(s), polyp(s), or other lesion(s) by snare technique 48138, 59, Colonoscopy, flexible; with biopsy, single or multiple Diagnosis Code(s): --- Professional --- K64.8, Other hemorrhoids D12.0, Benign neoplasm of cecum D12.4, Benign neoplasm of descending colon R19.5, Other fecal abnormalities D50.9, Iron deficiency anemia, unspecified K57.30, Diverticulosis of large intestine without perforation or abscess without bleeding CPT copyright 2017 [employer]. All rights reserved. The codes documented in this report are preliminary and upon pastry assistant review may be revised to meet current compliance requirements. Recognized by the [employer] for promoting quality in endoscopy CLOSURE CLERK * Pebbles Felton MD - 01/07/2020 9:11 AM CSTAssociated Order(s): EGD [facility] Patient Name: Jolene Gordon Procedure Date: 01/07/2020 9:11 AM Date of : 1945 Admit Type: Inpatient Age: 74 Gender: Female Attending MD: Pebbles Felton M.D. Room: [facility] ENDOSCOPY ROOM 1 Note Status: Finalized Patient Profile: This is a 74 year old female. Patient admitted with severe anemia and occult blood in the stool. EGD for evaluation. Procedure: Upper GI endoscopy Indications: Iron deficiency anemia, Heme positive stool Referring MD: Inez Long M.D. Providers: Pebbles Felton M.D. Impression: - Normal examined duodenum. - Gastritis. Biopsied. - Large hiatal hernia. Recommendation: - Use Protonix (pantoprazole) 40 mg PO daily. - The hiatal hernia and gastric erosion definitely can contribute to the patient's symptoms of occult blood in the stool and chronic GI blood loss and the anemia. Medicines: Monitored Anesthesia Care Complications: No immediate [...] passed under direct vision. The Endoscope GIF-H190 [id number] was introduced through the mouth, and advanced to the third part of duodenum. The upper GI endoscopy was accomplished without difficulty. The patient tolerated the procedure well. Findings: The examined duodenum was normal. Mucosal pattern was normal Localized mild inflammation characterized by congestion (edema), erosions and erythema was found in the gastric body. Biopsies were taken with a cold forceps for Helicobacter pylori testing using CLOtest. The gastric antrum was unremarkable. Retroflexion in the stomach showed large hiatal hernia and within the hernia the fundus and the cardia were unremarkable. A large hiatal hernia was present. This hernia was the both paraesophageal and sliding type. Below the GE junction. The GE junction itself was unremarkable at 35 cm from the mouth opening. The esophagus body was unremarkable. Electronically signed by Pebbles Felton M.D. Pebbles Felton M.D. 01/07/2020 10:04:34 AM Number of Addenda: 0 Note Initiated On: 01/07/2020 9:11 AM Procedure Code(s): --- Professional --- 51001, Esophagogastroduodenoscopy, flexible, transoral; with biopsy, single or multiple Diagnosis Code(s): --- Professional --- K29.70, Gastritis, unspecified, without bleeding K44.9, Diaphragmatic hernia without obstruction or gangrene D50.9, Iron deficiency anemia, unspecified R19.5, Other fecal abnormalities CPT copyright 2017 [employer]. All rights reserved. The codes documented in this report are preliminary and upon pastry assistant review may be revised to meet current compliance requirements. Recognized by the [employer] for promoting quality in endoscopy CLOSURE CLERK documented in this encounter Consult Notes * Pebbles Felton MD - 01/05/2020 5:47 PM CST Gastroenterology Consult Reason for consult: Anemia, GI source Date of Consult: 01/05/2020 Consultation was requested by Dr. Whiteside from the ER for anemia and occult blood in the stool SUBJECTIVE Patient is a 74 y.o. female with complaint of shortness of breath on exertion. Noted the patient has severe anemia per admission. Patient has been on Eliquis for pulmonary embolism started 4 weeks ago. Reason she came to the emergency room which shortness of breath on exertion. She has no chest pain. She has no abdominal pain. Bowels has been brown in color. Stool occult blood testing in the emergency room was positive. No sign of bloody bowel movement or overt black bowel movement. No nausea no vomiting.. Her last colonoscopy was 10 years ago. No weight loss. No other subjective or objective issues or signs. Her exam was unremarkable except for pale conjunctiva. Past Medical History: Diagnosis Date ??? HX [...] CATARACT EXTRACTION Cataract extraction ??? HYSTERECTOMY 06/2018 Medications Prior to Admission Medication Sig Dispense Refill Last Dose ??? apixaban (ELIQUIS) 5 mg tablet Take 1 tablet (5 mg total) by mouth 2 (two) times a day 180 tablet 3 01/05/2020 at Unknown time ??? carvedilol (COREG) 6.25 mg tablet Take 1 tablet (6.25 mg total) by mouth 2 (two) times a day with meals 180 tablet 3 01/05/2020 at Unknown time ??? letrozole (FEMARA) 2.5 mg tablet Take 2.5 mg by mouth daily 01/05/2020 at Unknown time ??? losartan-hydroCHLOROthiazide (HYZAAR) 100-12.5 mg per tablet TAKE 1 TABLET BY MOUTH DAILY 90 tablet 3 01/05/2020 at Unknown time ??? methotrexate 2.5 mg tablet Take 12.5 mg by mouth every 7 days sunday 3 Past Week at Unknown time Allergies Allergen Reactions ??? Atorvastatin Muscle pain [...] Other Father's Sister mastectomy. ??CA; Review of Systems Constitutional: Positive for fatigue. HENT: Negative. Eyes: Negative. Respiratory: Positive for shortness of breath. Gastrointestinal: Positive for blood in stool. Endocrine: Negative. Genitourinary: Negative. Musculoskeletal: Negative. Skin: Negative. Neurological: Negative. Psychiatric/Behavioral: Negative. Vitals: BP 124/50 Pulse 91 Temp 36.7 ??C (98.1 ??F) (Temporal) Resp 18 SpO2 99% OBJECTIVE Physical Exam: Patient is alert and oriented to time and place and self. Patient appears comfortable. Eyes: no jaundice. Lymphatics: no submandibular and no subclavicular lymphadenopathy. Lungs: CTA anteriorly. ENT: no mouth ulcers. GI: abdomen is soft, no distention, no tenderness, bowel sounds positive. Musculos keletal: no joint swelling, no edema. Skin: no rash. Psych: mood seems normal. No confusion. Lab/Radiology/Diagnostic Review: Labs and X rays reviewed. Recent Results (from the past 48 hour(s)) CBC with auto differential Collection Time: 01/05/20 12:41 PM Result Value Ref Range WBC 9.7 3.8 - 9.9 K/cumm Hgb 7.4 (L) 11.9 - 15.5 g/dL Hct 25.0 (L) 35.6 - 45.5 % Plt 309 150 - 400 K/cumm MPV 9.4 9.1 - 12.3 fL RBC 3.34 (L) 3.90 - 5.20 M/cumm MCV 74.9 (L) 81.3 - 96.4 fL MCH 22.2 (L) 27.1 - 33.3 pg MCHC 29.6 (L) 32.3 - 35.7 g/dL RDW CV 22.2 (H) 11.1 - 14.9 % RDW SD 57.9 (H) 35.7 - 48.1 fL NRBC abs 0.02 (H) 0.00 - 0.01 K/cumm Comprehensive metabolic panel Collection Time: 01/05/20 12:41 PM Result Value Ref Range Sodium 135 135 - 145 mmol/L Potassium, pl 4.2 3.3 - 4.9 mmol/L Chloride 97 97 - 110 mmol/L CO2 25 22 - 32 mmol/L Anion gap 13 2 - 15 mmol/L BUN 24 8 - 25 mg/dL Creatinine 0.76 0.60 - 1.10 mg/dL Glucose 181 70 - 199 mg/dL Calcium 9.2 8.5 - 10.3 mg/dL Bilirubin, total 0.3 0.1 - 1.2 mg/dL Protein, pl 6.7 6.5 - 8.5 g/dL Albumin 4.2 3.5 - 5.0 g/dL Alk phos 66 40 - 130 Units/L ALT 34 7 - 45 Units/L AST 27 10 - 45 Units/L Pro B-type natriuretic peptide Collection Time: 01/05/20 12:41 PM Result Value Ref Range NT-proBNP 86 <=300 pg/mL Troponin T Collection Time: 01/05/20 12:41 PM Result Value Ref Range Troponin T <0.01 0.00 - 0.01 ng/mL Differential, auto Collection Time: 01/05/20 12:41 PM Result Value Ref Range Neutrophil abs 8.4 (H) 1.7 - 6.5 K/cumm Imm gran abs 0.1 0.0 - 0.1 K/cumm Lymphocyte abs 0.5 (L) 0.8 - 3.3 K/cumm Monocyte abs 0.5 0.2 - 0.8 K/cumm Eosinophil abs 0.2 0.0 - 0.5 K/cumm Basophil abs 0.0 0.0 - 0.1 K/cumm Neutrophil pct 86.5 % Imm gran pct 0.6 % Lymphocyte pct 5.2 % Monocyte pct 5.3 % Eosinophil pct 2.0 % Basophil pct 0.4 % eGFR Collection Time: 01/05/20 12:41 PM Result Value Ref Range GFR 78 mL/min/1.73 m2 Iron profile w/ IBC Collection Time: 01/05/20 12:41 PM Result Value Ref Range Iron 11 (L) 35 - 145 mcg/dL TIBC 449 (H) 250 - 400 mcg/dL Transferrin saturation 2 (L) 20 - 50 % D-dimer, quantitative Collection Time: 01/05/20 12:42 PM Result Value Ref Range D-DIMER 291 <=499 ng/mL FEU Protime-INR Collection Time: 01/05/20 12:42 PM Result Value Ref Range PT 18.1 (H) 9.5 - 13.0 sec INR 1.6 (H) 0.9 - 1.2 aPTT Collection Time: 01/05/20 12:42 PM Result Value Ref Range aPTT 30 25 - 37 sec POC Guaiac occult blood, fecal, non-neoplasm Collection Time: 01/05/20 2:17 PM Result Value Ref Range Guaiac occult blood, fecal Positive QC Positive Control Acceptable ABO/Rh Collection Time: 01/05/20 4:00 PM Result Value Ref Range ABO/RH. B Positive Antibody screen Collection Time: 01/05/20 4:00 PM Result Value Ref Range Rocky, indirect, Gel Interpretation Negative ABSC Xr Chest Pa Lateral 2 Views Result Date: 01/05/2020 1. No acute abnormality. 2. Moderate to large hiatal hernia. Electronically signed by: Jonathan Barber M.D. GI IMPRESSION: 1. Iron deficiency anemia. 2. Occult blood in the stool. 3. Shortness of breath likely secondary to the combination pulmonary embolism and anemia. GI PLAN: 1. 1 unit blood transfusion today to keep hemoglobin above 8. 2. GI prophylaxis. 3. Ideally the patient will need upper endoscopy and colonoscopy. Although it might be diaz to wait2 or 4 more weeks before putting the patient asleep sedation considering the bilateral pulmonary embolism. 4. Repeat blood counts in the morning. If blood counts continued to decline despite blood transfusion then I think an urgent upper endoscopy is warranted. 5. If her blood counts remain stable or increase and no sign of further bleeding then I think we can plan outpatient evaluation. 6. Follow-up progress. Pebbles Felton MD CLOSURE CLERK documented in this encounter Nursing Notes * Lupe Cristina RN - 01/07/2020 2:29 PM CST Discharge instructions discussed. Verbalizes understanding of all instructions as written. Transported to [facility] in stable condition with all personal belongings. Discharged home to self carewith at side for transport. CLOSURE CLERK documented in this encounter ED Notes * Ana Stubbs MD - 01/05/2020 1:37 PM CSTAssociated Order(s): ECG 12 lead HPI Chief Complaint Patient presents with ??? Shortness of Breath (1338) Jolene Gordon is a 74 y.o. female non-smoker with h/o HTN, HLD, CHF, RA, uterine cancer, bilateral PE, s/p hysterectomy who presents to the ED c/o SOB onset about a month ago. Patient states that she was admitted last month for bilateral PE and was put on Eliquis. Her SOB has never beenresolved since she left the hospital. Patient states that she quickly feels SOB after walking a short distance. She reports a negative Doppler study on her BLE. Patient further admits nausea. She denies vomiting, diarrhea, fever, cough, chest pain, or other complaints. No alleviating factors. Thereare no further complaints at this time. Chart review shows that patient was admitted into [facility] on 12/02/19 for bilateral pulmonary embolism. TTE on 12/02/19 showed conclusions of: Hyperdynamic left ventricular function.Mild concentric left ventricular hypertrophy. Abnormal LV outflow tract contour but No left ventricular outflow tract gradient at rest. No focal wall motion abnormalities. Impaired diastolic relaxation Grade I. Ejection fraction is visually estimated at 75 %.Moderate mitral annular calcification. Mild mitral valve regurgitation.Moderate pulmonary hypertension based on right ventricular systolic pressure. Estimated peak RVSP is 50 mmHg. Mild tricuspid regurgitation. CT chest PE on 12/02/19 showed impressions of: 1. Bilateral pulmonary embolus with moderate clot burden. Borderline right heart strain. No pulmonary infarct. 2. Additional findings as above. PCP. Inez Long MD. 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 Chronic diastolic heart failure (CMS/HCC) 12/03/2019 ??? Bilateral pulmonary embolism (CMS/HCC) 12/02/2019 ??? Encounter for screening colonoscopy 09/29/2019 ??? Malignant neoplasm of uterus (CMS/HCC) 12/17/2018 ??? Malignant neoplasm of upper-inner quadrant of left breast in female, estrogen receptor positive(CMS/HCC) 12/17/2018 ??? Mixed hyperlipidemia 11/28/2017 ??? Essential hypertension 11/28/2017 ??? 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 rheumatoid factor (CMS/HCC) 11/28/2017 ??? Pre-diabetes 11/28/2017 Past Medical History: Diagnosis Date ??? HX OTHER MEDICAL B/L arthroscopic knee surg ??? HX OTHER MEDICAL RA ??? HX OTHER MEDICAL R knee replacement ??? HX OTHER MEDICAL blood clot- right leg ??? Hyperlipidemia Hyperlipidemia ??? Hypertension Hypertension ??? Screening mammogram, encounter for 1945 ??? Uterine cancer ([facility]) 04/2018 Past Surgical History: Procedure Laterality Date ??? CATARACT EXTRACTION Cataract extraction ??? HYSTERECTOMY 06/2018 Family History Problem Relation [...] Alcohol use: No ??? Drug use: No Social History Patient does not qualify to have social determinant information on file (likely too young). Social History Narrative ??? Not on file Review of Systems Review of Systems Constitutional: Negative for chills and fever. HENT: Negative for congestion, rhinorrhea and sore throat. Eyes: Negative for pain. Respiratory: Positive for shortness of breath. Negative for cough. Cardiovascular: Negative for chest pain and leg swelling. Gastrointestinal: Positive for nausea. Negative for abdominal pain, diarrhea and vomiting. Genitourinary: Negative for difficulty urinating. Musculoskeletal: Negative for myalgias. Skin: Negative for rash. Neurological: Negative for dizziness and headaches. Psychiatric/Behavioral: Negative for behavioral problems. Physical Exam ED Triage Vitals [01/05/20 1206] Temp Pulse Resp BP SpO2 36.7 ??C (98.1 ??F) 83 18 115/60 97 % Temp src Heart Rate Source Patient Position BP Location FiO2 (%) Temporal -- -- -- -- Physical Exam Vitals signs and nursing note reviewed. Constitutional: General: She is not in acute distress. Appearance: She is well-developed. HENT: Head: Normocephalic and atraumatic. Right Ear: Tympanic membrane normal. Left Ear: Tympanic membrane normal. Nose: Nose normal. Mouth/Throat: Pharynx: No oropharyngeal exudate or posterior oropharyngeal erythema. Eyes: Extraocular Movements: Extraocular movements intact. Conjunctiva/sclera: Conjunctivae normal. Pupils: Pupils are equal, round, and reactive to light. Neck: Musculoskeletal: Normal range of motion and neck supple. Cardiovascular: Rate and Rhythm: Normal rate and regular rhythm. Pulses: Normal pulses. Heart sounds: Normal heart sounds. No murmur. Pulmonary: Effort: Pulmonary effort is normal. No respiratory distress. Breath sounds: Normal breath sounds. Abdominal: General: Bowel sounds are normal. There is no distension. Palpations: Abdomen is soft. Tenderness: There is no tenderness. There is no guarding. Genitourinary: Rectum: Guaiac result positive. Musculoskeletal: Normal range of motion. General: No swelling or tenderness. Right lower leg: No edema. Left lower leg: No edema. Skin: General: Skin is warm and dry. Neurological: General: No focal deficit present. Mental Status: She is alert and oriented to person, place, and time. Psychiatric: Mood and Affect: Mood normal. [facility] ECG 12 lead Date/Time: 01/05/2020 1:48 PM Performed by: Ana Stubbs MD Authorized by: Ana Stubbs MD Rate: ECG rate: 78 Rhythm: Rhythm: sinus rhythm Comments: Nothing acute. Patient Vitals for the past 24 hrs: BP Temp Temp src Pulse Resp SpO2 Height Weight 01/05/20 1915 129/56 37.3 ??C (99.2 ??F) 88 16 98 % -- -- 01/05/20 1857 122/58 36.7 ??C (98 ??F) 85 16 99 % -- -- 01/05/20 1810 -- -- -- -- -- -- 170.2 cm (5' 7 ) 86 kg (189 lb 9.5 oz) 01/05/20 1600 124/50 -- -- 91 -- 99 % -- -- 01/05/20 1430 116/58 -- -- 80 -- 100 % -- -- 01/05/20 1206 115/60 36.7 ??C (98.1 ??F) 83 18 97 % -- -- Labs Reviewed CBC WITH AUTO DIFFERENTIAL - Abnormal Result Value WBC 9.7 Hgb 7.4 (*) Hct 25.0 (*) Plt 309 MPV 9.4 RBC 3.34 (*) MCV 74.9 (*) MCH 22.2 (*) MCHC 29.6 (*) RDW CV 22.2 (*) RDW SD 57.9 (*) NRBC abs 0.02 (*) DIFFERENTIAL AUTO - Abnormal Neutrophil abs 8.4 (*) Imm gran abs 0.1 Lymphocyte abs 0.5 (*) Monocyte abs 0.5 Eosinophil abs 0.2 Basophil abs 0.0 Neutrophil pct 86.5 Imm gran pct 0.6 Lymphocyte pct 5.2 Monocyte pct 5.3 Eosinophil pct 2.0 Basophil pct 0.4 PROTIME-INR - Abnormal PT 18.1 (*) INR 1.6 (*) IRON PROFILE W/ IBC - Abnormal Iron 11 (*) TIBC 449 (*) Transferrin saturation 2 (*) POC GUAIAC OCCULT BLOOD, FECAL, NON-NEOPLASM - Abnormal Guaiac occult blood, fecal Positive QC Positive Control Acceptable COMPREHENSIVE METABOLIC PANEL Sodium 135 Potassium, pl 4.2 Chloride 97 CO2 25 Anion gap 13 BUN 24 Creatinine 0.76 Glucose 181 Calcium 9.2 Bilirubin, total 0.3 Protein, pl 6.7 Albumin 4.2 Alk phos 66 ALT 34 AST 27 PRO B-TYPE NATRIURETIC PEPTIDE NT-proBNP 86 TROPONIN T Troponin T <0.01 EGFR GFR 78 D-DIMER, QUANTITATIVE D-DIMER 291 APTT aPTT 30 VITAMIN B12 Cyanocobalamin (Vit B12) 496 FOLATE Folic acid 9.5 TYPE AND SCREEN ABO/RH ABO/RH. B Positive Narrative: Has the patient had Daratumumab (Darzalex) in the past 6 months?->Unknown ANTIBODY SCREEN Rocky, indirect, Gel Interpretation Negative ABSC Narrative: Has the patient had Daratumumab (Darzalex) in the past 6 months?->Unknown B ABO / RH CONFIRMATION TESTING ABO/Rh Confirmation B Positive CROSSMATCH Crossmatch Compatible Unit number for crossmatch [id number] CBC WITH AUTO DIFFERENTIAL PREPARE RBC Units requested 1 Units requested Ready Narrative: Are special requirements needed? (all products are leukoreduced)->No PREPARE RBC Unit Number [id number] Product code [id number] Blood Expiration Date Product Blood Type (for scanning) 5100 Product Blood Type OPOS Dispense Status DISPENSED XR Chest Pa Lateral 2 Views Final Result 1. No acute abnormality. 2. Moderate to large hiatal hernia. Electronically signed by: Jonathan Barber M.D. MDM:Patient presents with anemia and shortness of breath. She is on blood thinners. Summarize previous history: History of PE. Summarize history: Patient presents with shortness of breath and weakness. She has low hemoglobin. She is guaiac positive. Will admit for observation and GI consult. Discussed with: Admitting physician and Production Planner They agree with : Admission ED Course as of Jan 05 2026 Time: 01/05 1416 Comment: Discussed patient's case with Dr. Felton, GI, who agreed to consult. By: Miriam Ivy Time: 01/05 1437 Comment: Discussed patient's case with Dr. Spear , Hospitalist, who accepted patient for obseravtion admission. By: Miriam Ivy Final diagnoses: Iron deficiency anemia due to chronic blood loss Gastrointestinal hemorrhage associated with anorectal source This note is prepared by Miriam Ivy, scribing for and in the presence of Ana Stubbs MD. I electronically signed this note at 8:26 PM on 01/05/2020. I, Ana Stubbs MD, have personally performed the services described in the documentation , reviewed the documentation, as recorded by the scribe in my presence, and it accurately and completelyrecords my words and actions. Ana Stubbs MD 01/05/202026 CLOSURE CLERK * Starr Enriquez, RN - 01/05/2020 12:03 PM CST Pt to the ED with complaints of SOB and fatigue, states she had blood clots in both lungs recently.Pt able to speak complete sentences with no difficulty. CLOSURE CLERK documented in this encounter Miscellaneous Notes * Plan of Care - Lupe Cristina RN - 01/07/2020 2:02 PM CST Goals: Clinical Goals for the Shift: Stable vital signs, no s/s bleeding, improved activity tolerance, free from fall or injury. Problem: Health Behavior: Goal: Understanding of discharge needs will improve Outcome: Adequate for Discharge Problem: Activity: Goal: Fatigue will decrease Outcome: Adequate for Discharge Goal: Ability to tolerate increased activity will improve Outcome: Adequate for Discharge Goal: Ability to maintain optimal joint mobility will improve Outcome: Adequate for Discharge Problem: Bowel/Gastric: Goal: Ability to achieve a regular elimination pattern will improve Outcome: Adequate for Discharge Problem: Cardiac: Goal: Ability to maintain an adequate cardiac output will improve Outcome: Adequate for Discharge Goal: Ability to maintain adequate ventilation will improve Outcome: Adequate for Discharge Goal: Ability to achieve and maintain adequate cardiopulmonary perfusion will improve Outcome: Adequate for Discharge Problem: Lack of Knowledge: Goal: Understanding of discharge needs will improve Outcome: Adequate for Discharge Goal: Knowledge of disease or condition will improve Outcome: Adequate for Discharge Goal: Knowledge of the prescribed therapeutic regimen will improve Outcome: Adequate for Discharge Problem: Coping: Goal: Ability to adjust to condition or change in health will improve Outcome: Adequate for Discharge Goal: Communication of feelings regarding changes in body function or appearance will improve Outcome: Adequate for Discharge Problem: Health Behavior: Goal: Identification of resources available to assist in meeting health care needs will improve Outcome: Adequate for Discharge Problem: Nutritional: Goal: Maintenance of adequate nutrition will improve Outcome: Adequate for Discharge Problem: Physical Regulation: Goal: Signs and symptoms of infection will decrease Outcome: Adequate for Discharge Goal: Will show no signs and symptoms of excessive bleeding Outcome: Adequate for Discharge Goal: Complications related to the disease process, condition or treatment will be avoided or minimized Outcome: Adequate for Discharge Problem: Safety: Goal: Ability to remain free from injury will improve Outcome: Adequate for Discharge Problem: Sensory: Goal: Pain level will decrease Outcome: Adequate for Discharge Goal: General experience of comfort will improve Outcome: Adequate for Discharge Problem: Skin Integrity: Goal: Skin integrity will improve Outcome: Adequate for Discharge Goal: Signs of wound healing will improve Outcome: Adequate for Discharge Problem: Tissue Perfusion: Goal: Ability to maintain adequate tissue perfusion will improve Outcome: Adequate for Discharge Goal: Ability to maintain a stable neurologic state will improve Outcome: Adequate for Discharge Problem: Bowel/Gastric: Goal: Will show no signs and symptoms of gastrointestinal bleeding Outcome: Adequate for Discharge Problem: Cognitive: Goal: Verbalization of understanding the information provided will improve Outcome: Adequate for Discharge Problem: Fluid Volume: Goal: Will show no signs and symptoms of excessive bleeding Outcome: Adequate for Discharge Goal: Ability to maintain a balanced intake and output will improve Outcome: Adequate for Discharge Problem: Physical Regulation: Goal: Complications related to the disease process, condition or treatment will be avoided or minimized Outcome: Adequate for Discharge Goal: Diagnostic test results will improve Outcome: Adequate for Discharge Problem: Sensory: Goal: Pain level will decrease Outcome: Adequate for Discharge Summary: VSS. Up ad mickey in room. Tolerated EGD/Colonoscopy well. Discharge pending. CLOSURE CLERK * Perioperative Nursing Note - Anita Badillo RN - 01/07/2020 10:[address] Felton spoke with Patient and regarding today's procedure. He recommends following upin 3 years for another colon screening and to follow up with Dr Long for regular labs to monitor hemoglobin levels. CLOSURE CLERK * Plan of Care - Marianne Masterson RN - 01/07/2020 4:39 AM CST Goals: Clinical Goals for the Shift: Stable H/H, no signs of bleeding, able to tolerate activity with no shortness of breath, stable vital signs Summary: Patient completed bowel prep with no issues, hemoglobin up to 8.6, no signs of bleeding, vital signs stable Problem: Health Behavior: Goal: Understanding of discharge needs will improve Outcome: Progressing Problem: Activity: Goal: Fatigue will decrease Outcome: Progressing Goal: Ability to tolerate increased activity will improve Outcome: Progressing Goal: Ability to maintain optimal joint mobility will improve Outcome: Progressing Problem: Bowel/Gastric: Goal: Ability to achieve a regular elimination pattern will improve Outcome: Progressing Problem: Cardiac: Goal: Ability to maintain an adequate cardiac output will improve Outcome: Progressing Goal: Ability to maintain adequate ventilation will improve Outcome: Progressing Goal: Ability to achieve and maintain adequate cardiopulmonary perfusion will improve Outcome: Progressing Problem: Lack of Knowledge: Goal: Understanding of discharge needs will improve Outcome: Progressing Goal: Knowledge of disease or condition will improve Outcome: Progressing Goal: Knowledge of the prescribed therapeutic regimen will improve Outcome: Progressing Problem: Coping: Goal: Ability to adjust to condition or change in health will improve Outcome: Progressing Goal: Communication of feelings regarding changes in body function or appearance will improve Outcome: Progressing Problem: Health Behavior: Goal: Identification of resources available to assist in meeting health care needs will improve Outcome: Progressing Problem: Nutritional: Goal: Maintenance of adequate nutrition will improve Outcome: Progressing Problem: Physical Regulation: Goal: Signs and symptoms of infection will decrease Outcome: Progressing Goal: Will show no signs and symptoms of excessive bleeding Outcome: Progressing Goal: Complications related to the disease process, condition or treatment will be avoided or minimized Outcome: Progressing Problem: Safety: Goal: Ability to remain free from injury will improve Outcome: Progressing Problem: Sensory: Goal: Pain level will decrease Outcome: Progressing Goal: General experience of comfort will improve Outcome: Progressing Problem: Skin Integrity: Goal: Skin integrity will improve Outcome: Progressing Goal: Signs of wound healing will improve Outcome: Progressing Problem: Tissue Perfusion: Goal: Ability to maintain adequate tissue perfusion will improve Outcome: Progressing Goal: Ability to maintain a stable neurologic state will improve Outcome: Progressing Problem: Bowel/Gastric: Goal: Will show no signs and symptoms of gastrointestinal bleeding Outcome: Progressing Problem: Cognitive: Goal: Verbalization of understanding the information provided will improve Outcome: Progressing Problem: Fluid Volume: Goal: Will show no signs and symptoms of excessive bleeding Outcome: Progressing Goal: Ability to maintain a balanced intake and output will improve Outcome: Progressing Problem: Physical Regulation: Goal: Complications related to the disease process, condition or treatment will be avoided or minimized Outcome: Progressing Goal: Diagnostic test results will improve Outcome: Progressing Problem: Sensory: Goal: Pain level will decrease Outcome: Progressing CLOSURE CLERK * Plan of Leyda - Doris Monroy RN - 01/06/2020 3:27 PM CST Problem: Health Behavior: Goal: Understanding of discharge needs will improve Outcome: Progressing Problem: Activity: Goal: Fatigue will decrease Outcome: Progressing Goal: Ability to tolerate increased activity will improve Outcome: Progressing Goal: Ability to maintain optimal joint mobility will improve Outcome: Progressing Problem: Bowel/Gastric: Goal: Ability to achieve a regular elimination pattern will improve Outcome: Progressing Problem: Cardiac: Goal: Ability to maintain an adequate cardiac output will improve Outcome: Progressing Goal: Ability to maintain adequate ventilation will improve Outcome: Progressing Goal: Ability to achieve and maintain adequate cardiopulmonary perfusion will improve Outcome: Progressing Problem: Lack of Knowledge: Goal: Understanding of discharge needs will improve Outcome: Progressing Goal: Knowledge of disease or condition will improve Outcome: Progressing Goal: Knowledge of the prescribed therapeutic regimen will improve Outcome: Progressing Problem: Coping: Goal: Ability to adjust to condition or change in health will improve Outcome: Progressing Goal: Communication of feelings regarding changes in body function or appearance will improve Outcome: Progressing Problem: Health Behavior: Goal: Identification of resources available to assist in meeting health care needs will improve Outcome: Progressing Problem: Nutritional: Goal: Maintenance of adequate nutrition will improve Outcome: Progressing Problem: Physical Regulation: Goal: Signs and symptoms of infection will decrease Outcome: Progressing Goal: Complications related to the disease process, condition or treatment will be avoided or minimized Outcome: Progressing Problem: Safety: Goal: Ability to remain free from injury will improve Outcome: Progressing Problem: Sensory: Goal: Pain level will decrease Outcome: Progressing Goal: General experience of comfort will improve Outcome: Progressing Problem: Skin Integrity: Goal: Skin integrity will improve Outcome: Progressing Goal: Signs of wound healing will improve Outcome: Progressing Problem: Tissue Perfusion: Goal: Ability to maintain adequate tissue perfusion will improve Outcome: Progressing Goal: Ability to maintain a stable neurologic state will improve Outcome: Progressing Problem: Cognitive: Goal: Verbalization of understanding the information provided will improve Outcome: Progressing Problem: Fluid Volume: Goal: Ability to maintain a balanced intake and output will improve Outcome: Progressing Problem: Physical Regulation: Goal: Complications related to the disease process, condition or treatment will be avoided or minimized Outcome: Progressing Goal: Diagnostic test results will improve Outcome: Progressing Problem: Sensory: Goal: Pain level will decrease Outcome: Progressing Problem: Physical Regulation: Goal: Will show no signs and symptoms of excessive bleeding Outcome: Not Progressing Problem: Bowel/Gastric: Goal: Will show no signs and symptoms of gastrointestinal bleeding Outcome: Not Progressing Problem: Fluid Volume: Goal: Will show no signs and symptoms of excessive bleeding Outcome: Not Progressing Goals: Clinical Goals for the Shift: Stable H/H. Increqase activity without fatigue or shortness of breath. Remain free from pain Summary: H/H showed minimal improvement after 1 unit of packed cells. Pt being prepped for EGD and colonoscopy. Tolerates ambulating in room to bathroom. Stable gait. Denies any pain or discomfort. Tolerating clear liquids without nausea CLOSURE CLERK * Assessment & Plan Note - Neeru Gonzalez MD - 01/06/2020 5:45 AM CSTAssociated Problem(s): Malignant neoplasm of upper-inner quadrant of left breast in female, estrogen receptor positive (HCC) Hold letrozole for now as it increases risk for thromboembolism. CLOSURE CLERK * Assessment & Plan Note - Neeru Gonzalez MD - 01/06/2020 5:42 AM CSTAssociated Problem(s): Iron deficiency anemia due to chronic blood loss Likely GI source as patient has positive guaiac. Hemoglobin was as high as 11.1 in November. Patienthas been seen by GI and 1 unit of PRBCs ordered. Awaiting repeat hemoglobin. Ferrlecit ordered by Dr. Felton already. Continue to monitor. Will hold anticoagulation for now. CLOSURE CLERK CLOSURE CLERK * Assessment & Plan Note - Neeru Gonzalez MD - 01/06/2020 5:42 AM CSTAssociated Problem(s): 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 rheumatoid factor (CMS/HCC) (HCC) Patient is on methotrexate which she takes on Sunday. CLOSURE CLERK * Assessment & Plan Note - Neeru Gonzalez MD - 01/06/2020 5:42 AM CSTAssociated Problem(s): Essential hypertension Currently normotensive. Continue carvedilol with hold parameters. Holding losartan and hydrochlorothiazide for now. CLOSURE CLERK * Plan of Care - Marianne Masterson RN - 01/06/2020 5:04 AM CST Goals: Clinical Goals for the Shift: Patient will tolerate blood transfusion with no issues, stable vital signs/labs, remain free from injury/fall Summary: Patient received 1 unit PRBC this shift with no issues, no signs/symptoms of GI bleeding, vital signs stable, NPO after midnight for EGD Problem: Health Behavior: Goal: Understanding of discharge needs will improve Outcome: Progressing Problem: Activity: Goal: Fatigue will decrease Outcome: Progressing Goal: Ability to tolerate increased activity will improve Outcome: Progressing Goal: Ability to maintain optimal joint mobility will improve Outcome: Progressing Problem: Bowel/Gastric: Goal: Ability to achieve a regular elimination pattern will improve Outcome: Progressing Problem: Cardiac: Goal: Ability to maintain an adequate cardiac output will improve Outcome: Progressing Goal: Ability to maintain adequate ventilation will improve Outcome: Progressing Goal: Ability to achieve and maintain adequate cardiopulmonary perfusion will improve Outcome: Progressing Problem: Lack of Knowledge: Goal: Understanding of discharge needs will improve Outcome: Progressing Goal: Knowledge of disease or condition will improve Outcome: Progressing Goal: Knowledge of the prescribed therapeutic regimen will improve Outcome: Progressing Problem: Coping: Goal: Ability to adjust to condition or change in health will improve Outcome: Progressing Goal: Communication of feelings regarding changes in body function or appearance will improve Outcome: Progressing Problem: Health Behavior: Goal: Identification of resources available to assist in meeting health care needs will improve Outcome: Progressing Problem: Nutritional: Goal: Maintenance of adequate nutrition will improve Outcome: Progressing Problem: Physical Regulation: Goal: Signs and symptoms of infection will decrease Outcome: Progressing Goal: Will show no signs and symptoms of excessive bleeding Outcome: Progressing Goal: Complications related to the disease process, condition or treatment will be avoided or minimized Outcome: Progressing Problem: Safety: Goal: Ability to remain free from injury will improve Outcome: Progressing Problem: Sensory: Goal: Pain level will decrease Outcome: Progressing Goal: General experience of comfort will improve Outcome: Progressing Problem: Skin Integrity: Goal: Skin integrity will improve Outcome: Progressing Goal: Signs of wound healing will improve Outcome: Progressing Problem: Tissue Perfusion: Goal: Ability to maintain adequate tissue perfusion will improve Outcome: Progressing Goal: Ability to maintain a stable neurologic state will improve Outcome: Progressing CLOSURE CLERK * Plan of Leyda - Smith Guzman RN - 01/05/2020 5:53 PM CST Problem: Health Behavior: Goal: Understanding of discharge needs will improve Outcome: Progressing Problem: Activity: Goal: Fatigue will decrease Outcome: Progressing Goal: Ability to tolerate increased activity will improve Outcome: Progressing Goal: Ability to maintain optimal joint mobility will improve Outcome: Progressing Problem: Bowel/Gastric: Goal: Ability to achieve a regular elimination pattern will improve Outcome: Progressing Problem: Cardiac: Goal: Ability to maintain an adequate cardiac output will improve Outcome: Progressing Goal: Ability to maintain adequate ventilation will improve Outcome: Progressing Goal: Ability to achieve and maintain adequate cardiopulmonary perfusion will improve Outcome: Progressing Problem: Lack of Knowledge: Goal: Understanding of discharge needs will improve Outcome: Progressing Goal: Knowledge of disease or condition will improve Outcome: Progressing Goal: Knowledge of the prescribed therapeutic regimen will improve Outcome: Progressing Problem: Coping: Goal: Ability to adjust to condition or change in health will improve Outcome: Progressing Goal: Communication of feelings regarding changes in body function or appearance will improve Outcome: Progressing Problem: Health Behavior: Goal: Identification of resources available to assist in meeting health care needs will improve Outcome: Progressing Problem: Nutritional: Goal: Maintenance of adequate nutrition will improve Outcome: Progressing Problem: Physical Regulation: Goal: Signs and symptoms of infection will decrease Outcome: Progressing Goal: Will show no signs and symptoms of excessive bleeding Outcome: Progressing Goal: Complications related to the disease process, condition or treatment will be avoided or minimized Outcome: Progressing Problem: Safety: Goal: Ability to remain free from injury will improve Outcome: Progressing Problem: Sensory: Goal: Pain level will decrease Outcome: Progressing Goal: General experience of comfort will improve Outcome: Progressing Problem: Skin Integrity: Goal: Skin integrity will improve Outcome: Progressing Goal: Signs of wound healing will improve Outcome: Progressing Problem: Tissue Perfusion: Goal: Ability to maintain adequate tissue perfusion will improve Outcome: Progressing Goal: Ability to maintain a stable neurologic state will improve Outcome: Progressing Goals: Clinical Goals for the Shift: Improve SOB, increase activity as tolerated. Summary: Care plan initiated CLOSURE CLERK documented in this encounter Plan of Treatment Not on file documented as of this encounter Procedures Procedure Name Priority Date/Time Associated Diagnosis Comments SURGICAL PATHOLOGY STAT 01/07/2020 11:54 AM FORECLOSURE CLERK Iron deficiency anemia due to chronic blood loss Gastrointestina l hemorrhage associated with anorectal source H. PYLORI UREASE SCREEN (RADHA TEST) STAT 01/07/2020 9:40 AM FORECLOSURE CLERK ENDO ADD ON COLON BIOPSY 020 9:19 AM FORECLOSURE CLERK Iron deficiency anemia due to chronic blood loss Gastrointestina l hemorrhage associated with anorectal source ESOPHAGOGASTRODUODENOSCOPY BIOPSY 01/07/2020 9:19 AM FORECLOSURE CLERK Iron deficiency anemia due to chronic blood loss Gastrointestina l hemorrhage associated with anorectal source COLON REMOVAL SNARE 01/07/2020 9:19 AM FORECLOSURE CLERK Iron deficiency anemia due to chronic blood loss Gastrointestina l hemorrhage associated with anorectal source COLONOSCOPY 01/07/2020 9:12 AM FORECLOSURE CLERK EGD 01/07/2020 9:11 AM FORECLOSURE CLERK POCT GLUCOSE DEVICE Routine 01/07/2020 7:03 AM FORECLOSURE CLERK EGFR Routine 01/07/2020 3:25 AM FORECLOSURE CLERK CBC WITHOUT DIFFERENTIAL Routine 020 3:25 AM FORECLOSURE CLERK PHOSPHORUS Routine 01/07/2020 3:25 AM FORECLOSURE CLERK MAGNESIUM Routine 01/07/2020 3:25 AM FORECLOSURE CLERK LACTATE DEHYDROGENASE Routine 01/07/2020 3:25 AM FORECLOSURE CLERK BASIC METABOLIC PANEL Routine 01/07/2020 3:25 AM FORECLOSURE CLERK TRANSFUSE RED BLOOD CELLS Timed 2019 5:14 PM FORECLOSURE CLERK PREPARE RBC Timed 01/06/2020 4:16 PM FORECLOSURE CLERK DIFFERENTIAL AUTO Routine 01/06/2020 4:32 AM FORECLOSURE CLERK CBC WITH AUTO DIFFERENTIAL Routine 01/06 4:32 AM FORECLOSURE CLERK PREPARE RBC Timed 01/05/2020 7:00 PM FORECLOSURE CLERK TRANSFUSE RED BLOOD CELLS Timed 2019 6:57 PM FORECLOSURE CLERK PREPARE RBC Routine 01/05/2020 6:43 PM FORECLOSURE CLERK ABO/RH STAT 01/05/2020 4:00 PM FORECLOSURE CLERK CROSSMATCH STAT 01/05/2020 4:00 PM FORECLOSURE CLERK ANTIBODY SCREEN STAT 01/05/2020 4:00 PM FORECLOSURE CLERK TYPE AND SCREEN STAT 01/05/2020 4:00 PM FORECLOSURE CLERK POC GUAIAC OCCULT BLOOD, FEC AL, NOT FOR NEOPLASM SCREENING Routine 01/05/2020 2:17 PM FORECLOSURE CLERK ECG 12-LEAD STAT 01/05/2020 1:48 PM FORECLOSURE CLERK APTT STAT 01/05/2020 12:42 PM FORECLOSURE CLERK PROTIME-INR STAT 01/05/2020 12:42 PM FORECLOSURE CLERK D-DIMER, QUANTITATIVE STAT 01/05/2020 12:42 PM FORECLOSURE CLERK EGFR STAT 01/05/2020 12:41 PM FORECLOSURE CLERK DIFFERENTIAL AUTO STAT 01/05/2020 12:41 PM FORECLOSURE CLERK B ABO / RH CONFIRMATION TESTING STAT 01/05/2020 12:41 PM FORECLOSURE CLERK PRO B-TYPE NATRIURETIC PEPTIDE STAT 0 01/05/2020 12:41 PM FORECLOSURE CLERK THYROID FUNCTION CASCADE Add-On 020 12:41 PM FORECLOSURE CLERK IRON PROFILE W/ IBC STAT 01/05/2020 12:41 PM FORECLOSURE CLERK CBC WITH AUTO DIFFERENTIAL STAT 01/05 12:41 PM FORECLOSURE CLERK TROPONIN T STAT 01/05/2020 12:41 PM FORECLOSURE CLERK FOLATE Routine 01/05/2020 12:41 PM FORECLOSURE CLERK VITAMIN B12 Routine 01/05/2020 12:41 PM FORECLOSURE CLERK COMPREHENSIVE METABOLIC PANEL STAT 12:41 PM FORECLOSURE CLERK XR CHEST PA LATERAL 2 VIEWS ED 12/27 12:23 PM FORECLOSURE CLERK documented in this encounter Results * Surgical pathology (01/07/2020 11:54 AM FORECLOSURE CLERK) Tissue (Polyp(s), colon/colorectal, esophageal, gastric) 01/07/2020 9:58 AM FORECLOSURE CLERK Tissue (Polyp(s), colon/colorectal, esophageal, gastric) 01/07/2020 9:58 AM FORECLOSURE CLERK Narrative PATHOLOGY [facility] - 01/08/2020 10:09 AM FORECLOSURE CLERK [facility] results best viewed via link to PDF [facility] Department of Pathology [address] [place] [address] Final Report Patient Name: ??JOLENE GORDON Destiny Address: ??[address] [place] [address], ??[place], [place] ??[address] Gender: ??F : ??1945 (Age: 74) Service: ??Medical Location: ??[facility] Hospital #: ??[id number] Patient Type: ??[facility] IP Accession # ?[id number] Taken: ??01/07/2020 Received: ??01/07/2020 Accessioned: ??01/07/2020 Reported: ??01/08/2020 Physician(s):Dr. Pebbles Felton M.D. Diagnosis: A. ??Cecum, biopsy: ? - Tubular adenoma B. ??Descending colon, biopsies: ? - Tubular adenoma(s) Dawna Flores M.D. Report Electronically Reviewed and Signed Out By ??Dawna Flores M.D. ??01/08/2020 10:09:10 Specimen(s) Received: A: Cecum B: Descending Microscopic Description: Microscopic examination of the biopsies from the cecum and descending colon, each examined at multiple levels, reveals a benign pattern with alterations that support the clinical impression of polyps. ??These are adenomatous lesions that have a tubular architectural arrangement. Clinical History: Iron deficiency anemia due to chronic blood loss. ??Gastrointestinal hemorrhage associated with anorectal source. ??EGD. ??Colonoscopy. Gross Description: The specimen is submitted in two containers labeled Jolene Gordon . A. ??The first container is labeled cecum . ??It is a single, 1 mm ferguson soft tissue fragment. ??All in A. B. ??The second container is labeled descending . ??It is three ferguson soft tissue fragments measuring 2-8 mm. ??All in B. ??Kishore Perea MD/Pedro Pablo Noonan. REPORT IMAGES AND SCANNED DOCUMENTS, IF INCLUDED, ONLY VIEWABLE IN PDF VERSION OF REPORT The performance characteristics of some immunohistochemical stains, fluorescence in-situ hybridization tests and immunophenotyping by flow cytometry cited in this report (if any) were determined by the Surgical Pathology Department at [facility] as part of an ongoing research associate quality control qc program and in compliance with federally mandated [...] characteristics determined by the Surgical Pathology Department [facility]. ??It has not been cleared or approved by the U. S. Food and Drug Administration. Pebbles Felton MD LAB PATHOLOGY ORDERABLES F inal Result PATHOLOGY [facility] [address] [place] [address] * H. pylori urease screen (RADHA test) Tissue (01/07/2020 9:40 AM FORECLOSURE CLERK) H. pylori, rapid (RADHA) Negative Negative [facility] Tissue 01/07/2020 9:40 AM FORECLOSURE CLERK 01/07/2020 12:00 PM FORECLOSURE CLERK Pebbles Felton MD LAB MICROBIOLOGY - GENERAL ORDERABLES Final Result Performing Organization Address [facility] Co de Phone Number [facility] 1 [facility] Department [place] [address] * COLONOSCOPY (01/07/2020 9:12 AM FORECLOSURE CLERK) Anatomical Region Laterality Modality Other Narrative Procedure Note Pebbles Felton MD - 01/07/2020 9:12 AM CST [facility] Patient Name: Jolene Gordon Procedure Date: 01/07/2020 9:12 AM Date of : 1945 Admit Type: Inpatient Age: 74 Gender: Female Attending MD: Pebbles Felton M.D. Room: [facility] ENDOSCOPY ROOM 1 Note Status: Finalized Patient Profile: This is a 74 year old female. Patient admitted withthe severe anemia and noted occult blood in the stool. Procedure: Colonoscopy Indications: Heme positive stool, Iron deficiency anemia Referring MD: Inez Long M.D. Providers: Pebbles Felton M.D. Impression: [...] passed under direct vision.The Pediatric Colonoscope [id number]-H190L [id number] was introduced through the anus and advanced [...] 9:12 AM Procedure Code(s): --- Professional --- 22622, Colonoscopy, flexible; with removal of tumor(s), polyp(s), or other lesion(s) by snare technique 35395, 59, Colonoscopy, flexible; with biopsy, single or multiple Diagnosis Code(s): --- Professional --- K64.8, Other hemorrhoids D12.0, Benign neoplasm of cecum D12.4, Benign neoplasm of descending colon R19.5, Other fecal abnormalities D50.9, Iron deficiency anemia, unspecified K57.30, Diverticulosis of large intestine without perforation orabscess without bleeding CPT copyright 2017 [employer]. All rights reserved. The codes documented in this report are preliminary and upon pastry assistant reviewmay be revised to meet current compliance requirements. Recognized by the [employer] for promoting quality in endoscopy us Pebbles Felton MD ENDOSCOPY PROCEDURES Final Result * EGD (01/07/2020 9:11 AM FORECLOSURE CLERK) Anatomical Region Laterality Modality Other Narrative Procedure Note Pebbles Felton MD - 01/07/2020 9:11 AM CST [facility] Patient Name: Jolene Gordon Procedure Date: 01/07/2020 9:11 AM Date of : 1945 Admit Type: Inpatient Age: 74 Gender: Female Attending MD: Pebbles Felton M.D. Room: [facility] ENDOSCOPY ROOM 1 Note Status: Finalized Patient Profile: This is a 74 year old female. Patient admitted with severe anemia and occult blood in the stool. EGD for evaluation. Procedure: Upper GI endoscopy Indications: Iron deficiency anemia, Heme positive stool Referring MD: Inez Long M.D. Providers: Pebbles Felton M.D. Impression: - Normal examined duodenum. - Gastritis. Biopsied. - Large hiatal hernia. Recommendation: - Use Protonix (pantoprazole) 40 mg PO daily. - The hiatal hernia and gastric erosion definitelycan contribute to the patient's symptoms of occult bloodin the stool and chronic GI blood loss and theanemia. Medicines: Monitored Anesthesia Care Complications: No immediate [...] obtained. The scope was passed under direct vision.The Endoscope GIF-H190 [id number] was introduced throughthe mouth, and advanced to the third part of duodenum.The upper GI endoscopy was accomplished withoutdifficulty. The patient tolerated the procedure well. Findings: The examined duodenum was normal. Mucosal pattern was normal Localized mild inflammation characterized by congestion (edema), erosions and erythema was found in the gastric body. Biopsies weretaken with a cold forceps for Helicobacter pylori testing using CLOtest.The gastric antrum was unremarkable. Retroflexion in the stomach showed large hiatal hernia and within the hernia the fundus and the cardiawere unremarkable. A large hiatal hernia was present. This hernia was the both paraesophageal and sliding type. Below the GE junction. The GEjunction itself was unremarkable at 35 cm from the mouth opening. Theesophagus body was unremarkable. Electronically signed by Pebbles Felton M.D. Pebbles Felton M.D. 01/07/2020 10:04:34 AM Number of Addenda: 0 Note Initiated On: 01/07/2020 9:11 AM Procedure Code(s): --- Professional --- 43280, Esophagogastroduodenoscopy, flexible, transoral; with biopsy, single or multiple Diagnosis Code(s): --- Professional --- K29.70, Gastritis, unspecified, without bleeding K44.9, Diaphragmatic hernia without obstruction or gangrene D50.9, Iron deficiency anemia, unspecified R19.5, Other fecal abnormalities CPT copyright 2017 [employer]. All rights reserved. The codes documented in this report are preliminary and upon pastry assistant reviewmay be revised to meet current compliance requirements. Recognized by the [employer] for promoting quality in endoscopy Pebbles Felton MD ENDOSCOPY PROCEDURES Final Result * (ABNORMAL) POCT glucose (01/07/2020 7:03 AM FORECLOSURE CLERK) Pathologist [facility] Glucose, POC 143(H) 71 - 98 mg/dL [facility] ([place]) Blood specimen (specimen) 01/07/2020 7:03 AM FORECLOSURE CLERK 01/07/2020 7:03 AM FORECLOSURE CLERK Sudarshan Jones Jr., MD LAB POCT ORDERABLES - DEVICE Final Result [facility] 1 [facility] Department [place] [address] * eGFR (01/07/2020 3:25 AM FORECLOSURE CLERK) Pathologist [facility] eGFR 89 mL/min/1.7 3 m2 [facility] ([place]) Comment: Interpretive Data Reference Interval Normal ?>/= 90 mL/min/1.73m2 Mildly decreased* ? 60 - 89 mL/min/1.73m2 Mildly to moderately decreased ?45 - 59 mL/min/1.73m2 Moderately to severely decreased ??30 - 44 mL/min/1.73m2 Severely decreased ?15 - 29 mL/min/1.73m2 Kidney Failure ?< 15 ??mL/min/1.73m2 *Relative to young adult level If -Nigerian multiply value by 1.16. Estimated glomerular filtration rate is determined by [...] 70. Current interpretive data was last reviewed 2016. Blood specimen (specimen) 01/07/2020 3:25 AM FORECLOSURE CLERK 01/07/2020 4:14 AM FORECLOSURE CLERK us Sudarshan Jones Jr., MD LAB BLOOD ORDERABLE S Final Result [facility] 1 [facility] Department [place] [address] * Phosphorus (01/07/2020 3:25 AM FORECLOSURE CLERK) Pathologist [facility] Phosphorus, pl 4.4 2.3 - 4.5 mg/dL [facility] ([place]) Blood specimen (specimen) 01/07/2020 3:25 AM FORECLOSURE CLERK 01/07/2020 4:14 AM FORECLOSURE CLERK us Pebbles Felton MD LAB BLOOD ORDERABLES Final Result [facility] ([place] 1 [facility] [place] [address] * Magnesium (01/07/2020 3:25 AM FORECLOSURE CLERK) Pathologist [facility] Magnesium 2.0 1.4 - 2.5 mg/dL [facility] Blood specimen (specimen) 01/07/2020 3:25 AM FORECLOSURE CLERK 01/07/2020 4:14 AM FORECLOSURE CLERK Pebbles Felton MD LAB BLOOD ORDERABLES Final Result Performing Organization Address City/[facility] Co de Phone Number [facility] ([place]) [address] [place] [address] * Basic metabolic panel (01/07/2020 3:25 AM FORECLOSURE CLERK) Sodium 142 135 - 145 mmol/L [facility] ([place]) Potassium, pl 3.4 3.3 - 4.9 mmol/L [facility] ([place]) Chloride 105 97 - 110 mmol/L [facility] ([place]) CO2 24 22 - 32 mmol/L [facility] ([place]) Anion gap 13 2 - 15 mmol/L [facility] ([place]) BUN 8 8 - 25 mg/dL [facility] ([place]) Creatinine 0.63 0.60 - 1.10 mg/dL [facility] ([place]) Glucose 108 70 - 199 mg/dL [facility] ([place]) Comment: Interpretive Data Fasting glucose >/= [...] interpretive data was last revised 2017. Calcium 8.8 8.5 - 10.3 mg/dL [facility]) Blood specimen (specimen) 01/07/2020 3:25 AM FORECLOSURE CLERK 01/07/2020 4:14 AM FORECLOSURE CLERK us Pebbles Felton MD LAB BLOOD ORDERABLES Final Result [facility] ([place]) 1 [facility] Department [place] [address] * (ABNORMAL) CBC without differential (01/07/2020 3:25 AM FORECLOSURE CLERK) WBC 6.6 3.8 - 9.9 K/cumm [facility] ([place] Hgb 8.6(L) 11.9 - 15.5 g/dL [facility] ([place] Hct 27.9(L) 35.6 - 45.5 % [facility] ([place]) Plt 220 150 - 400 K/cumm [facility] ([place]) MPV 9.9 9.1 - 12.3 fL [facility] ([place]) RBC 3.57(L) 3.90 - 5.20 M/cumm [facility] ([place]) MCV 78.2(L) 81.3 - 96.4 fL [facility] MCH 24.1(L) 27.1 - 33.3 pg [facility] MCHC 30.8(L) 32.3 - 35.7 g/dL [facility]) RDW CV 21.1(H) 11.1 - 14.9 % [facility] ([place]) RDW SD 58.9(H) 35.7 - 48.1 fL [facility] ([place]) NRBC abs 0.00 0.00 - 0.01 K/cumm [facility] ([place]) Blood specimen (specimen) 01/07/2020 3:25 AM FORECLOSURE CLERK 01/07/2020 4:14 AM FORECLOSURE CLERK us Pebbles Felton MD LAB BLOOD ORDERABLES Final Result [facility] ([place]) 1 [facility] [place] [address] * Lactate dehydrogenase (LD) (01/07/2020 3:25 AM FORECLOSURE CLERK) Lactate dehydrogenase (LDH) 167 100 - 250 Units/L [facility] ([place]) Blood specimen (specimen) 01/07/2020 3:25 AM FORECLOSURE CLERK 01/07/2020 4:14 AM FORECLOSURE CLERK us Pebbles Felton MD LAB BLOOD ORDERABLES Final Result [facility] ([place]) 1 [facility] [place] [address] * Transfuse RBC (01/06/2020 8:05 PM FORECLOSURE CLERK) Blood specimen (specimen) us Sudarshan Jones Jr., MD BLOOD TRANSFUSION O RDERABLES Final Result [facility] ([place]) 1 [facility] [place] [address] * Transfuse RBC: 1 Units (01/06/2020 8:05 PM FORECLOSURE CLERK) Blood specimen (specimen) us Sudarshan Jones Jr., MD BLOOD TRANSFUSION O RDERABLES Final Result * Prepare RBC: 1 Units (01/06/2020 4:16 PM FORECLOSURE CLERK) Units requested 1 [facility] ([place]) Units requested Ready [facility] ([place]) Unit Number [id number] [facility] ([place]) Product code [id number] [facility] ([place]) Blood Expiration Date [id number] [facility] ([place]) Product Blood Type (for scanning) 7300 [facility] ([place]) Product Blood Type BPOS [facility] ([place]) Dispense Status DISPENSED [facility] ([place]) Blood specimen (specimen) 01/06/2020 4:16 PM FORECLOSURE CLERK 01/06/2020 4:16 PM FORECLOSURE CLERK Sudarshan Jones Jr., MD BLOOD BANK PRODUCT ORDERABLES Final Result [facility] ([place]) 1 [facility] [place] [address] * (ABNORMAL) Differential, auto (01/06/2020 4:32 AM FORECLOSURE CLERK) Neutrophil abs 4.4 1.7 - 6.5 K/cumm [facility] ([place] Imm gran abs 0.0 0.0 - 0.1 K/cumm [facility] ([place]) Lymphocyte abs 0.6(L) 0.8 - 3.3 K/cumm [facility] ([place]) Monocyte abs 0.4 0.2 - 0.8 K/cumm [facility] ([place]) Eosinophil abs 0.2 0.0 - 0.5 K/cumm [facility] ([place]) Basophil abs 0.0 0.0 - 0.1 K/cumm [facility] ([place]) Neutrophil pct 77.6 % [facility] ([place]) Comment: Interpretive Data Percent cell count reference ranges are not reported, since discordance with absolute values may lead to misinterpretation of CBC data. Current Interpretive Data was last revised on 2018. Imm gran pct 0.7 % [facility] ([place]) Comment: Interpretive Data Percent cell count reference ranges are not reported, since discordance with absolute values may lead to misinterpretation of CBC data. Current Interpretive Data was last revised on 2018. Lymphocyte pct 11.1 % [facility] ([place]) Comment: Interpretive Data Percent cell count reference ranges are not reported, since discordance with absolute values may lead to misinterpretation of CBC data. Current Interpretive Data was last revised on 2018. Monocyte pct 7.5 % [facility] ([place]) Comment: Interpretive Data Percent cell count reference ranges are not reported, since discordance with absolute values may lead to misinterpretation of CBC data. Current Interpretive Data was last revised on 2018. Eosinophil pct 2.8 % [facility] ([place]) Comment: Interpretive Data Percent cell count reference ranges are not reported, since discordance with absolute values may lead to misinterpretation of CBC data. Current Interpretive Data was last revised on 2018. Basophil pct 0.3 % [facility] ([place]) Comment: Interpretive Data Percent cell count reference ranges are not reported, since discordance with absolute values may lead to misinterpretation of CBC data. Current Interpretive Data was last revised on 2018. Blood specimen (specimen) 01/06/2020 4:32 AM FORECLOSURE CLERK 01/06/2020 4:37 AM FORECLOSURE CLERK us Ana Stubbs MD LAB BLOOD ORDERABLES Final R esult [facility] ([place]) 1 [facility] [place] [address] * (ABNORMAL) CBC with auto differential (01/06/2020 4:32 AM FORECLOSURE CLERK) WBC 5.7 3.8 - 9.9 K/cumm [facility] ([place]) Hgb 7.5(L) 11.9 - 15.5 g/dL [facility] ([place]) Hct 23.9(L) 35.6 - 45.5 % [facility] ([place]) Plt 235 150 - 400 K/cumm [facility] ([place]) MPV 9.3 9.1 - 12.3 fL [facility] ([place]) RBC 3.17(L) 3.90 - 5.20 M/cumm [facility] ([place]) MCV 75.4(L) 81.3 - 96.4 fL [facility] ([place]) MCH 23.7(L) 27.1 - 33.3 pg [facility] ([place]) MCHC 31.4(L) 32.3 - 35.7 g/dL [facility] ([place]) RDW CV 21.4(H) 11.1 - 14.9 % [facility] ([place]) RDW SD 58.3(H) 35.7 - 48.1 fL [facility] ([place]) NRBC abs 0.03(H) 0.00 - 0.01 K/cumm [facility] ([place]) Blood specimen (specimen) 01/06/2020 4:32 AM FORECLOSURE CLERK 01/06/2020 4:37 AM FORECLOSURE CLERK us Ana Stubbs MD LAB BLOOD ORDERABLES Final R esult [facility] ([place]) [address] [place] [address] [place] [address] * Transfuse RBC (01/05/2020 10:23 PM FORECLOSURE CLERK) Blood specimen (specimen) Pebbles Felton MD BLOOD TRANSFUSION ORDERABL ES Final Result Performing Organization Address [facility]/ZIP Co de Phone Number [facility] ([place]) [address] [place] [address] [place] [address] * Transfuse RBC: 1 Units (01/05/2020 10:23 PM FORECLOSURE CLERK) Blood specimen (specimen) Pebbles Felton MD BLOOD TRANSFUSION ORDERABL ES Final Result * Prepare RBC: 1 Units (01/05/2020 7:00 PM FORECLOSURE CLERK) Units requested 1 [facility] ([place]) Units requested Ready [facility] ([place]) Blood specimen (specimen) 01/05/2020 7:00 PM FORECLOSURE CLERK 01/05/2020 7:00 PM FORECLOSURE CLERK Narrative [facility] ([place]) - 01/05/2020 7:00 PM FORECLOSURE CLERK Are special requirements needed? (all products are leukoreduced)->No Pebbles Felton MD BLOOD BANK PRODUCT ORDERAB LES Final Result [facility] ([place]) 1 [facility] [employer] [place] [address] * Prepare RBC (01/05/2020 6:43 PM FORECLOSURE CLERK) Unit Number [id number] [facility] ([place]) Product code [id number] [facility] ([place]) Blood Expiration Date [facility] ([place]) Product Blood Type (for scanning) 5100 [facility] ([place]) Product Blood Type OPOS [facility] ([place]) Dispense Status DISPENSED [facility] ([place]) us Pebbles Felton MD BLOOD BANK PRODUCT ORDERAB LES Final Result [facility] ([place]) 1 [facility] [place] [address] * Crossmatch (01/05/2020 4:00 PM FORECLOSURE CLERK) Crossmatch Compatible [facility] ([place]) Unit number for crossmatch [id number] [facility] ([place]) Crossmatch Compatible [facility] ([place]) Unit number for crossmatch [id number] [facility] ([place]) Blood specimen (specimen) 01/05/2020 4:00 PM FORECLOSURE CLERK 01/05/2020 4:03 PM FORECLOSURE CLERK us Jacklyn Spear MD LAB BLOOD BANK TEST ORDE NILS Edited Result - Final [facility] ([place]) 1 [facility] [employer] [place] [address] * Antibody screen (01/05/2020 4:00 PM FORECLOSURE CLERK) Rocky, indirect, Gel Interpretation Negative ABSC [facility] ([place]) Blood specimen (specimen) 01/05/2020 4:00 PM FORECLOSURE CLERK 01/05/2020 4:03 PM FORECLOSURE CLERK Narrative [facility] ([place]) - 01/05/2020 4:45 PM FORECLOSURE CLERK Has the patient had Daratumumab (Darzalex) in the past 6 months?->Unknown us Ana Stubbs MD LAB BLOOD BANK TEST ORDERABL ES Final Result Performing Organization Address City/[facility]/ZIP Co de Phone Number [facility] ([place]) 1 [facility] [place] [address] * ABO/Rh (01/05/2020 4:00 PM FORECLOSURE CLERK) ABO/Rh B Positive [facility] ([place]) Blood specimen (specimen) 01/05/2020 4:00 PM FORECLOSURE CLERK 01/05/2020 4:03 PM FORECLOSURE CLERK Narrative [facility] ([place]) - 01/05/2020 4:45 PM FORECLOSURE CLERK Has the patient had Daratumumab (Darzalex) in the past 6 months?->Unknown Ana Stubbs MD LAB BLOOD BANK TEST ORDERABL ES Final Result Performing Organization Address [facility] de Phone Number [facility] ([place]) 1 [facility] [place] [address] * (ABNORMAL) POC Guaiac occult blood, fecal, non-neoplasm (01/05/2020 2:17 PM FORECLOSURE CLERK) Guaiac occult blood, fecal Positive QC Positive Control Acceptable Stool 01/05/2020 2:17 PM FORECLOSURE CLERK Ana Stubbs MD POINT OF CARE TEST ORDERABLE S Final Result * ECG 12 lead (01/05/2020 1:48 PM FORECLOSURE CLERK) 01/05/2020 1:48 PM FORECLOSURE CLERK Narrative [facility] - 01/06/2020 6:07 AM FORECLOSURE CLERK Vent Rate: 78 bpm RR Interval: 760 msec MO Interval: 173 msec QRS Duration: 105 msec QT Interval: 404 msec QTC Interval: 438 msec P-R-T [place]: 49 - -9 - 74 degrees SINUS RHYTHM NORMAL ECG Electronically Signed By: Quang Diego MD us Ana Stubbs MD ECG ORDERABLES Final Result [facility] * aPTT (01/05/2020 12:42 PM FORECLOSURE CLERK) aPTT 30 25 - 37 sec [facility] ([place]) Comment: Interpretive data Heparin therapeutic range: 60-94 seconds Range based on correlation with therapeutic heparin activity range of 0.3-0.7 units/ml. Current interpretive data was last revised on 2019. Blood specimen (specimen) 01/05/2020 12:42 PM FORECLOSURE CLERK 01/05/2020 1:42 PM FORECLOSURE CLERK Ana Stubbs MD LAB BLOOD ORDERABLES Final R esult Performing Organization Address [facility] Co de Phone Number [facility]AN WILLIAM ([place]) 1 [facility] [employer] [place] [address] * (ABNORMAL) Protime-INR (01/05/2020 12:42 PM FORECLOSURE CLERK) PT 18.1(H) 9.5 - 13.0 sec [facility] ([place]) INR 1.6(H) 0.9 - 1.2 [facility] ([place]) Comment: Interpretive data Oral anticoagulant therapeutic ranges: Venous thromboembolism prophylaxis or treatment: 2.0-3.0 CARDIOLOGY Standard range: 2.0-3.0 High-intensity range: 2.5-3.5 Refer to indication-specific guidelines for appropriate target ranges for prosthetic heart valve replacement. Current interpretive data was last revised on 2019. Blood specimen (specimen) 01/05/2020 12:42 PM FORECLOSURE CLERK 01/05/2020 1:42 PM FORECLOSURE CLERK Ana Stubbs MD LAB BLOOD ORDERABLES Final R esult Performing Organization Address City/[facility] Co de Phone Number [facility] ([place]) 1 [facility] [employer] [place] [address] * D-dimer, quantitative (01/05/2020 12:42 PM FORECLOSURE CLERK) D-Dimer 291 <=499 ng/mL FEU [facility] ([place]) Comment: Interpretive data FDA approved the D-dimer, in conjunction with a low or moderate pretest probability score, to exclude venous thromboembolic events (VTE) {PE and DVT} in outpatients when the D-dimer result is < 500 ng/ml FEU. ?? Evidence supports using an age-adjusted D-dimer cut-off for outpatients older than 50 {age x 10) to improve specificity without sacrificing sensitivity. Example: age 68, VTE cut-off 680 ng/ml FEU. References; Schouten HT et al. Brit Med J. 2013;346:f2492. Woody BEARDEN et al. Annals Int Med. 2015;163:701-11. Current interpretive data was last revised on 2019. Blood specimen (specimen) 01/05/2020 12:42 PM FORECLOSURE CLERK 01/05/2020 1:42 PM FORECLOSURE CLERK us Ana Stubbs MD LAB BLOOD ORDERABLES Final R esult Performing Organization Address City/[facility]/ZIP Co de Phone Number [facility] ([place]) 1 [facility] [place] [address] * TSH reflex to free T4 (01/05/2020 12:41 PM FORECLOSURE CLERK) TSH 2.85 0.30 - 4.20 mcIUnit/mL [facility] ([place]) Blood specimen (specimen) 01/05/2020 12:41 PM FORECLOSURE CLERK 01/06/2020 7:16 AM FORECLOSURE CLERK Narrative [facility] ([place]) - 01/06/2020 7:51 AM FORECLOSURE CLERK Use already drawn blood us Neeru Gonzalez MD LAB BLOOD ORDERABLES Final Resul t [facility] ([place]) 1 [facility] [place] [place] [address] * ABO / Rh Confirmation Testing (01/05/2020 12:41 PM FORECLOSURE CLERK) ABO/Rh Confirmation B Positive [facility] ([place]) Blood specimen (specimen) 01/05/2020 12:41 PM FORECLOSURE CLERK 01/05/2020 6:17 PM FORECLOSURE CLERK Ana Stubbs MD LAB BLOOD ORDERABLES Final R esult Performing Organization Address City/[facility]/ZIP Co de Phone Number [facility] ([place]) 1 [facility] [place] [place] [address] * Folate (01/05/2020 12:41 PM FORECLOSURE CLERK) Folic acid 9.5 >=5.0 ng/mL [facility] ([place]) Comment:Testing performed by : [facility], [address] [place] [address]., [id number] Blood specimen (specimen) 01/05/2020 12:41 PM FORECLOSURE CLERK 01/05/2020 7:20 PM FORECLOSURE CLERK Ana Stubbs MD LAB BLOOD ORDERABLES Final R esult Performing Organization Address [facility] Co de Phone Number [facility] ([place]) 1 [facility] [place] [address] * Vitamin B12 (01/05/2020 12:41 PM FORECLOSURE CLERK) Vitamin B12 496 230 - 1,250 pg/mL [facility] ([place]) Comment:Testing performed by : [facility], [address] [place] [address]., [id number] Blood specimen (specimen) 01/05/2020 12:41 PM FORECLOSURE CLERK 01/05/2020 7:20 PM FORECLOSURE CLERK Ana Stubbs MD LAB BLOOD ORDERABLES Final R esult Performing Organization Address City/[facility]/ZIP Co de Phone Number [facility] ([place]) 1 [facility] [place] [address] * (ABNORMAL) Iron profile w/ IBC (01/05/2020 12:41 PM FORECLOSURE CLERK) Iron 11(L) 35 - 145 mcg/dL [facility] TIBC 449(H) 250 - 400 mcg/dL [facility] ([place]) Transferrin saturation 2(L) 20 - 50 % [facility] ([place]) Blood specimen (specimen) 01/05/2020 12:41 PM FORECLOSURE CLERK 01/05/2020 2:29 PM FORECLOSURE CLERK Ana Stubbs MD LAB BLOOD ORDERABLES Final R esult [facility] ([place]) 1 [facility] [place] [address] * eGFR (01/05/2020 12:41 PM FORECLOSURE CLERK) eGFR 78 mL/min/1.7 3 m2 [facility] ([place]) Comment: Interpretive Data Reference Interval Normal ?>/= 90 mL/min/1.73m2 Mildly decreased* ? 60 - 89 mL/min/1.73m2 Mildly to moderately decreased ?45 - 59 mL/min/1.73m2 Moderately to severely decreased ??30 - 44 mL/min/1.73m2 Severely decreased ?15 - 29 mL/min/1.73m2 Kidney Failure ?< 15 ??mL/min/1.73m2 *Relative to young adult level If -Nigerian multiply value by 1.16. Estimated glomerular filtration rate is determined by [...] 70. Current interpretive data was last reviewed 2016. Blood specimen (specimen) 01/05/2020 12:41 PM FORECLOSURE CLERK 01/05/2020 12:56 PM FORECLOSURE CLERK us Ana Stubbs MD LAB BLOOD ORDERABLES Final R esult [facility] ([place]) 1 [facility] [place] [address] * (ABNORMAL) Differential, auto (01/05/2020 12:41 PM FORECLOSURE CLERK) Neutrophil abs 8.4(H) 1.7 - 6.5 K/cumm [facility] ([place]) Imm gran abs 0.1 0.0 - 0.1 K/cumm [facility] ([place]) Lymphocyte abs 0.5(L) 0.8 - 3.3 K/cumm [facility] ([place]) Monocyte abs 0.5 0.2 - 0.8 K/cumm [facility] ([place]) Eosinophil abs 0.2 0.0 - 0.5 K/cumm [facility] ([place]) Basophil abs 0.0 0.0 - 0.1 K/cumm [facility] ([place]) Neutrophil pct 86.5 % [facility] ([place]) Comment: Interpretive Data Percent cell count reference [...] was last revised on 2018. Lymphocyte pct 5.2 % [facility] ([place]) Comment: Interpretive Data Percent cell count reference ranges are not reported, since discordance with absolute values may lead to misinterpretation of CBC data. Current Interpretive Data was last revised on 2018. Monocyte pct 5.3 % [facility] ([place]) Comment: Interpretive Data [...] revised on 2018. Basophil pct 0.4 % [facility] ([place]) Comment: Interpretive Data Percent cell count reference ranges are not reported, since discordance with absolute values may lead to misinterpretation of CBC data. Current Interpretive Data was last revised on 2018. Blood specimen (specimen) 01/05/2020 12:41 PM FORECLOSURE CLERK 01/05/2020 12:56 PM FORECLOSURE CLERK Ana Stubbs MD LAB BLOOD ORDERABLES Final R esult Performing Organization Address [facility] Co de Phone Number [facility] ([place]) 1 [facility] [place] [address] * Troponin T (01/05/2020 12:41 PM FORECLOSURE CLERK) Troponin T <0.01 0.00 - 0.01 ng/mL [facility] ([place]) Comment: Interpretive Data Reference ranges for children <18 years of age have not been established. - > or = 18 years: Serial determinations are recommended for the diagnosis of myocardial infarction. ??Temporal rise and fall are consistent with myocardial infarction when at least one value is above the 99th percentile upper reference limit for troponin assay. ??Journal of the [place] College [employer] Cardiology 2012;60:1581-98. Current Interpretive Data Last Revised Date: 2018. Blood specimen (specimen) 01/05/2020 12:41 PM FORECLOSURE CLERK 01/05/2020 12:56 PM FORECLOSURE CLERK Ana Stubbs MD LAB BLOOD ORDERABLES Final R esult Performing Organization Address [facility] Co de Phone Number [facility]AN [facility] ([place]) 1 [facility] [place] [address] * Pro B-type natriuretic peptide (01/05/2020 12:41 PM FORECLOSURE CLERK) NT-proBNP 86 <=300 pg/mL [facility] ([place]) Comment: Interpretive [...] et.al. Eur Heart J. 2006:27:330-337. 2. Shadi RW, Karen TAYLOR. J. AM Nabil Cardiol: Cardiovasc Imag. 2009;2: 216- 225. Interpretive Data Last Revised Date: 2018. Blood specimen (specimen) 01/05/2020 12:41 PM FORECLOSURE CLERK 01/05/2020 12:56 PM FORECLOSURE CLERK us Ana Stubbs MD LAB BLOOD ORDERABLES Final R esult [facility] ([place]) 1 [facility] [place] [address] * Comprehensive metabolic panel (01/05/2020 12:41 PM FORECLOSURE CLERK) Sodium 135 135 - 145 mmol/L [facility] ([place]) Potassium, pl 4.2 3.3 - 4.9 mmol/L [facility] ([place]) Chloride 97 97 - 110 mmol/L [facility] ([place]) CO2 25 22 - 32 mmol/L [facility] ([place]) Anion gap 13 2 - 15 mmol/L [facility] ([place]) BUN 24 8 - 25 mg/dL [facility] ([place]) Creatinine 0.76 0.60 - 1.10 mg/dL [facility] ([place]) Glucose 181 70 - 199 mg/dL [facility] ([place]) [...] interpretive data was last revised 2017. Calcium 9.2 8.5 - 10.3 mg/dL [facility] ([place]) Bilirubin, total 0.3 0.1 - 1.2 mg/dL [facility] ([place]) Protein, pl 6.7 6.5 - 8.5 g/dL [facility] ([place]) Albumin 4.2 3.5 - 5.0 g/dL [facility] ([place]) Alk phos 66 40 - 130 Units/L [facility] ([place]) ALT 34 7 - 45 Units/L [facility] ([place]) AST 27 10 - 45 Units/L [facility] ([place]) Blood specimen (specimen) 01/05/2020 12:41 PM FORECLOSURE CLERK 01/05/2020 12:56 PM FORECLOSURE CLERK Ana Stubbs MD LAB BLOOD ORDERABLES Final R esult [facility] ([place]) 1 [facility] [employer] [place] [address] * (ABNORMAL) CBC with auto differential (01/05/2020 12:41 PM FORECLOSURE CLERK) WBC 9.7 3.8 - 9.9 K/cumm [facility] ([place]) Hgb 7.4(L) 11.9 - 15.5 g/dL [facility] ([place]) Hct 25.0(L) 35.6 - 45.5 % [facility] ([place]) Plt 309 150 - 400 K/cumm [facility] ([place]) MPV 9.4 9.1 - 12.3 fL [facility] ([place]) RBC 3.34(L) 3.90 - 5.20 M/cumm [facility] ([place]) MCV 74.9(L) 81.3 - 96.4 fL [facility] ([place]) MCH 22.2(L) 27.1 - 33.3 pg [facility] ([place]) MCHC 29.6(L) 32.3 - 35.7 g/dL [facility] ([place]) RDW CV 22.2(H) 11.1 - 14.9 % [facility] ([place]) RDW SD 57.9(H) 35.7 - 48.1 fL [facility] ([place]) NRBC abs 0.02(H) 0.00 - 0.01 K/cumm [facility] ([place]) Blood specimen (specimen) 01/05/2020 12:41 PM FORECLOSURE CLERK 01/05/2020 12:56 PM FORECLOSURE CLERK Ana Stubbs MD LAB BLOOD ORDERABLES Final R esult [facility] ([place]) 1 [facility] [place] [place] [address] * XR Chest Pa Lateral 2 Views (01/05/2020 12:23 PM FORECLOSURE CLERK) Anatomical Region Laterality Modality Body, Chest N/A Computed Radiogr aphy 01/05/2020 12:3 1 PM FORECLOSURE CLERK Impressions 01/05/2020 12:32 PM FORECLOSURE CLERK 1. ??No acute abnormality. 2. ??Moderate to large hiatal hernia. Electronically signed by: Jonathan Barber M.D. Narrative 01/05/2020 12:32 PM FORECLOSURE CLERK EXAMINATION: XR CHEST PA LATERAL 2 VIEWS ORDERING HEALTHCARE PROVIDER: ANA STUBBS HISTORY: Shortness of breath for 2 months. [...] PA LATERAL 2 VIEWS ORDERING HEALTHCARE PROVIDER: ANA STUBBS HISTORY: Shortness of breath for 2 months. [...] hernia. Electronically signed by: Jonathan Barber M.D. 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 chronic blood loss Iron deficiency anemia secondary to blood loss (chronic) Gastrointestinal hemorrhage associated with anorectal source 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 rheumatoid factor (CMS/HCC) (HCC) Essential hypertension Unspecified essential hypertension Malignant neoplasm of upper-inner quadrant of left breast in female, estrogen receptor positive (HCC) Gastrointestinal hemorrhage associated with anorectal source Hiatal hernia Diaphragmatic hernia without mention of obstruction or gangrene Iron deficiency anemia due to chronic blood loss Iron deficiency anemia secondary to blood loss (chronic) Gastrointestinal hemorrhage associated with anorectal source documented in this encounter Admitting Diagnoses Diagnosis Iron deficiency anemia due to chronic blood loss Iron deficiency anemia secondary to blood loss (chronic) Gastrointestinal hemorrhage associated with anorectal source documented in this encounter Administered Medications Inactive Administered Medications - up to 3 most recent administrations Medication Order MAR Action Action Date Dose Rate Site carvediloL (COREG) tablet 6.25 mg 6.25 mg, oral, 2 times daily with meals (bkfst, dinner), First dose on Sun01/06/20 at 0800, Hold for SBP<105 and/or HR<55 Given 01/07/2020 12:08 PM FORECLOSURE CLERK 6.25 mg Given 01/06/2020 5:49 PM FORECLOSURE CLERK 6.25 mg Given 01/06/2020 8:09 AM FORECLOSURE CLERK 6.25 mg ondansetron (ZOFRAN) injection 4 mg 4 mg, intravenous, Administer over 2 Minutes, Every 6 hours PRN, nausea, vomiting, if not tolerating PO, Starting on Sun01/06/20 at 0541, Indications: Nausea and VomitingIndications:Nausea and Vomiting ondansetron ODT (ZOFRAN-ODT) disintegrating tablet 4 mg 4 mg, oral, Every 6 hours PRN, nausea, vomiting, Starting on Sun01/06/20 at 0541, Indications: Nausea and VomitingIndications:Nausea and Vomiting sodium chloride 0.9% flush 0.5-20 mL 0.5-20 mL, intra-catheter, Every 8 hours scheduled, First dose on Sun01/06/20 at 0615, Flush volume based on line type and size. Given 01/06/2020 4:09 PM FORECLOSURE CLERK 10 mL documented in this encounter Discontinued Medications Medication Sig Discontinue Reason Start Date End Da te methotrexate 2.5 mg tablet Take 12.5 mg by mouth every 7 days sunday Stop Taking at Discharge 10/30/2018 01/07/2020 documented as of this encounter Active and Recently Administered Medications Times are shown in FORECLOSURE CLERK. Scheduled Medication Order 01/05/2020 01/06/2020 01/07/2020 bisacodyl EC (DULCOLAX EC) tablet 15 mg (COMPLETED) 15 mg, oral, Once, On Sun01/06/20 at 0900, For 1 dose, Do not crush, chew, cut, dissolve, open or otherwise manipulate tablet/capsule., Indications: colon prep 0828 (Given - Provider: Doris Monroy, TAO) carvediloL (COREG) tablet 6.25 mg 6.25 mg, oral, 2 times daily with meals (bkfst, dinner), First dose on Sun01/06/20 at 0800, Hold for SBP<105 and/or HR<55 0809 (Given - Provider: Doris Monroy, TAO)1749 (Given - Provider: Doris Monroy, TAO) 0818 (JAN Hold - Provider: Automatic Transfer Provider - Reason: Patient not available)0819 ([facility] Unhold - Provider: Automatic Transfer Provider)0822 ([facility] Hold - Provider: Automatic Transfer Provider - Reason: Patient not available)1057 ([facility] Unhold - Provider: Automatic Transfer Provider)1208 (Given - Provider: Lupe Cristina RN) ferric gluconate (FERRLECIT) 125 mg of elemental iron in sodium chloride 0.9% 100 mL IVPB (COMPLETED) 125 mg of elemental iron, intravenous, at 110 mL/hr, Administer over 60 Minutes, Once, On Sun01/06/20 at 0800, For 1 dose, Room temperature only 0829 ([facility] Bag - Provider: Doris Monroy RN) magnesium citrate oral solution 296 mL (COMPLETED) 296 mL, oral, Once, On Sun01/07/20 at 0400, For 1 dose, Pre-Op/Floor (GI), Administer at 4:00 AM on the day of the procedure., Indications: Bowel Evacuation 0421 (Given - Provid er: Marianne Masterson, TAO) polyethylene glycol (MIRALAX) powder 119 g (COMPLETED) 119 g, oral, 2 times daily, First dose on Sun01/06/20 at 1600, For 2 doses, Pre-Op/Floor (GI), Mix 238 gm (whole container) with 2 liters of Gatorade (any color except red). Administer 1 liter (containing 119 gm or 1/2 of bulk container) at 16:00 the day before the procedure and keep the remaining 1 liter (containing 119 gm or 1/2 of bulk container) for a second dose at 20:00 the evening of procedure. Each 1 liter dose (containing 119 gm or 1/2 of bulk container) should be consumed within 2 hours., Indications: Bowel Evacuation 1609 (Given - Provider: Doris Monroy RN)195 (Given - Provider: Marianne Masterson, RN) sodium chloride 0.9% flush 0.5-20 mL 0.5-20 mL, intra-catheter, Every 8 hours scheduled, First dose on Sun01/06/20 at 0615, Flush volume based on line type and size. 0550 (Not Given - Provider: Marianne Masterson, RN - Reason: IV Infusing)1609 (Given - Provider: Doris Monroy, TAO)2114 (Not Given - Provider: Marianne Masterson RN - Reason: IV Infusing) 0611 (Not Given - Provider: Marianne Masterson, TAO - Reason: Other)0818 ([facility] Hold - Provider: Automatic Transfer Provider - Reason: Patient not available)0819 ([facility] Unhold - Provider: Automatic Transfer Provider)0822 ([facility] Hold - Provider: Automatic Transfer Provider - Reason: Patient not available)1057 ([facility] Unhold - Provider: Automatic Transfer Provider)1400 (Due - Provider: Automatic Transfer Provider) sodium chloride 0.9% IVPB 0-250 mL (COMPLETED) 0-250 mL, intravenous, Once, On Sun01/06/20 at 1615, For 1 dose, Prime blood tubing and administer amount needed to clear line (usually 50-100 mL) after transfusion complete. 1710 (New Bag - Provider: Doris Monroy RN) Continuous Medication Order 01/05/2020 01/06/2020 01/07/2020 sodium chloride 0.9% infusion (CANCELED) 50 mL/hr, intravenous, Continuous, Starting on Sun01/05/20 at 1500 1521 (New Bag - Provider: Krista Liu, TAO)1754 (Rate/Dose Change - Provider: Smith Guzman RN) 0805 (New Bag - Provider: Doris Monroy, RN)1000 (Stopped - Provider: Doris Monroy RN) sodium chloride 0.9% infusion (CANCELED) 30 mL/hr, intravenous, Continuous, Starting on Sun01/07/20 at 0900, Pre-Procedure (GI) 0827 (New Bag - Provider: Anita Badillo, RN)0922 (Rate/Dose Verify - Provider: Suzanne Dash MD PhD) PRN Medication Order 01/05/2020 01/06/2020 01/07/2020 ondansetron (ZOFRAN) injection 4 mg(Linked Group 1) 4 mg, intravenous, Administer over 2 Minutes, Every 6 hours PRN, nausea, vomiting, if not tolerating PO, Starting on Sun01/06/20 at 0541, Indications: Nausea and Vomiting 0818 ([facility] Hold - Pro vider: Automatic Transfer Provider - Reason: Patient not available)0819 ([facility] Unhold - Provider: Automatic Transfer Provider)0822 ([facility] Hold - Provider: Automatic Transfer Provider - Reason: Patient not available)1057 ([facility] Unhold - Provider: Automatic Transfer Provider) ondansetron ODT (ZOFRAN-ODT) disintegrating tablet 4 mg(Linked Group 1) 4 mg, oral, Every 6 hours PRN, nausea, vomiting, Starting on Sun01/06/20 at 0541, Indications: Nausea and Vomiting 0818 ([facility] Hold - Pro vider: Automatic Transfer Provider - Reason: Patient not available)0819 ([facility] Unhold - Provider: Automatic Transfer Provider)0822 ([facility] Hold - Provider: Automatic Transfer Provider - Reason: Patient not available)1057 ([facility] Unhold - Provider: Automatic Transfer Provider) sodium chloride 0.9% flush 0.5-20 mL 0.5-20 mL, intra-catheter, As needed, line care, Starting on Sun01/06/20 at 0541, Flush volume based on line type and size. Flush before and after each use. 0818 ([facility] Hold - Pro vider: Automatic Transfer Provider - Reason: Patient not available)0819 ([facility] Unhold - Provider: Automatic Transfer Provider)0822 ([facility] Hold - Provider: Automatic Transfer Provider - Reason: Patient not available)1057 ([facility] Unhold - Provider: Automatic Transfer Provider) Linked Groups Order Group 1: ondansetron ODT (ZOFRAN-ODT) disintegrating tablet 4 mgJump to med 4 mg, oral, Every 6 hours PRN, nausea, vomiting, Starting on Sun01/06/20 at 0541, Indications: Nausea and Vomiting Or ondansetron (ZOFRAN) injection 4 mgJump to med 4 mg, intravenous, Administer over 2 Minutes, Every 6 hours PRN, nausea, vomiting, if not tolerating PO, Starting on Sun01/06/20 at 0541, Indications: Nausea and Vomiting documented in this encounter Orders Medications Ordered That Álvaro ht Not Have Been Administered Count Last Ordered Date First Ordered Date sodium chloride 0.9% infusion 2 01/07/2020 01/05/2020 bisacodyl EC (DULCOLAX EC) tablet 15 mg 1 0 01/06/2020 carvediloL (COREG) tablet 6.25 mg 1 020 magnesium citrate oral solution 296 mL 1 ondansetron (ZOFRAN) injection 4 mg 1 01/06 ondansetron ODT (ZOFRAN-ODT) disintegrating tablet 4 mg 1 01/06/2020 polyethylene glycol (MIRALAX) powder 119 g 1 01/06/2020 sodium chloride 0.9% flush 0.5-20 mL 2 12/27 sodium chloride 0.9% IVPB 0-250 mL 2 201901/05/2020 ferric gluconate (FERRLECIT) 125 mg of elemental iron in sodium chloride 0.9% 100 mL IVPB 1 01/05/2020 Diet Count Last Ordered Date First Orde red Date ADULT DISCHARGE DIET 1 01/07/2020 Nursing Count Last Ordered Date First Orde red Date DISCHARGE ACTIVITY 1 01/07/2020 DISCHARGE CALL PROVIDER 2 01/07/2020 DISCHARGE INSTRUCTIONS 1 01/07/2020 FOLLOW UP WITH ESTABLISHED PROVIDER 2 01/07 VERIFY INFORMED CONSENT 2 01/06/2020 WEIGH PATIENT 2 01/06/2020 01/05/2020 CORE MEASURES Count Last Ordered Date First Ord ered Date REASON FOR NO VTE PROPHYLAXI S - HOSPITAL ADMISSION - MEDICATIONS 1 01/06/2020 REASON FOR NO VTE PROPHYLAXIS AT ADMISSION 1 01/05/2020 Case Request Count Last Ordered Date First Orde red Date CASE REQUEST GI 1 01/06/2020 ADT Patient Update Count Last Ordered Date Firs t Ordered Date ED IP DECISION TO ADMIT 1 01/05/2020 documented in this encounter 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 Relationship Specialty Start Date End Date Inez Long MD PCP - General 02/23/17 05/15/22 Neil Ag MD PhD [address] [place] [address] Radiation Oncologist Radiation Oncology 12/17/18 [place] [id number] [address] [address] [facility] [place] [id number] Referring Physician General Surgery 12/17/18 [place] [id number] [address] [facility] [address] [facility] [place] [id number] Medical Oncologist/Bobbin Handler Medical Oncology 12/17/18 [place] [id number] [address] [address] [place] [id number] Consulting Physician Gastroenterology 01/07/20 documented as of this encounter
--- OUTSIDE RECORDS SUMMARY | 2024-11-16 13:06 | XMS_ITS | Encounter Summary ---
Author Organization [facility] Healthcare Address [address] [place] [address] Care Team Providers Care Raw Finish Mill Operator Name Role Phone Inez Long MD Primary Care Provider [phone] Neil Ag MD PhD Unavailable [phone] Ita Vazquez MD Unavailable Caron Mohan MD Unavailable Pebbles Felton MD Unavailable [phone] Reason for Visit * Reason Comments Shortness of Breath Encounter Details Date Type Department Care Team (Latest Contact Info) Description 01/05/2020 1:34 PM RUBBER TESTER - 01/07/2020 2:30 PM RUBBER TESTER Hospital Encounter [facility] Acute Medicine [address] [place] [address] Ana Stubbs MD [address] [place] [address] Jacklyn Spear MD [address] [place] [address] Sudarshan Jones Jr., MD [address] [place] [address] [place] [address] Iron deficiency anemia due to chronic blood loss (Primary Dx); Gastrointestinal hemorrhage associated with anorectal source Discharge Disposition: Discharge to home or self [...] on file 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 RUBBER TESTER Gender Identity Not on file Sexual Orientation Not on file documented as of this encounter Last Filed Vital Signs Vital Sign Reading Time Taken Comments Blood Pressure 152/71 01/07/2020 11:13 AM RUBBER TESTER Pulse 71 01/07/2020 11:13 AM RUBBER TESTER Temperature 36.8 ??C (98.2 ??F) 01/07/2020 11:[address] Respiratory Rate 18 01/07/2020 11:13 AM RUBBER TESTER Oxygen Saturation 96% 01/07/2020 11:13 AM RUBBER TESTER Inhaled Oxygen Concentration - - Weight 86 kg (189 lb 9.5 oz) 01/05/2020 6:10 PM RUBBER TESTER Height 170.2 cm (5' 7.01 ) 01/06/2020 4:38 AM CS T Body Mass Index 29.69 01/05/2020 6:10 PM RUBBER TESTER documented in this encounter Discharge Diagnoses Diagnosis Iron deficiency anemia secondary to blood loss (chronic) - IRON DEFICIENCY ANEMIA SECONDARY TO BLOOD LOSS (CHRONIC) Other pulmonary embolism without acute cor pulmonale (HCC) - OTHER PULMONARY EMBOLISM WITHOUT ACUTE COR PULMONALE Chronic diastolic (congestive) heart failure (HCC) - CHRONIC DIASTOLIC (CONGESTIVE) HEART FAILURE 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) - MALIGNANT NEOPLASM OF UPPER-INNER QUADRANT OF LEFT FEMALE BREAST Benign neoplasm of cecum - BENIGN NEOPLASM OF CECUM Benign neoplasm of colon Benign neoplasm of descending colon - BENIGN NEOPLASM OF DESCENDING COLON Mixed hyperlipidemia - MIXED HYPERLIPIDEMIA Hypertensive heart disease with heart failure (CMS/HCC) (HCC) - HYPERTENSIVE HEART DISEASE WITH HEART FAILURE Unspecified hypertensive heart disease with heart failure Diaphragmatic hernia without obstruction or gangrene - DIAPHRAGMATIC HERNIA WITHOUT OBSTRUCTION OR GANGRENE Diaphragmatic hernia without mention of obstruction or gangrene Diverticulosis of large intestine without perforation or abscess without bleeding - DIVERTICULOSIS OF LARGE INTESTINE WITHOUT PERFORATION OR ABSCESS WITHOUT BLEEDING Other hemorrhoids - OTHER HEMORRHOIDS Rheumatoid arthritis with rheumatoid factor of multiple sites without organ or systems involvement (HCC) - RHEUMATOID ARTHRITIS WITH RHEUMATOID FACTOR OF MULTIPLE SITES WITHOUT ORGAN OR SYSTEMS INVOLVEMENT Estrogen receptor positive status (ER+) - ESTROGEN RECEPTOR POSITIVE STATUS [ER+] Estrogen receptor positive status [ER+] 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) use of anticoagulants - [employer] (CURRENT) USE OF ANTICOAGULANTS Long-term (current) use of anticoagulants nursing home (current) use of aromatase inhibitors - [employer] (CURRENT) USE OF AROMATASE INHIBITORS Personal history of malignant neoplasm of other parts of uterus - PERSONAL HISTORY OF MALIGNANT NEOPLASM OF OTHER PARTS OF UTERUS Acquired absence of both cervix and uterus - ACQUIRED ABSENCE OF BOTH CERVIX AND UTERUS Presence of right artificial knee joint - PRESENCE OF RIGHT ARTIFICIAL KNEE JOINT 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) drug therapy - OTHER [employer] (CURRENT) DRUG THERAPY Prediabetes - PREDIABETES Other abnormal glucose Allergy status to narcotic agent status - ALLERGY STATUS TO NARCOTIC AGENT STATUS Allergy status to other drugs, medicaments and biological substances status - ALLERGY STATUS TO OTHER DRUGS, MEDICAMENTS AND BIOLOGICAL SUBSTANCES STATUS Family history of ischemic heart disease and other diseases of the circulatory system - FAMILY HISTORY OF ISCHEMIC HEART DISEASE AND OTHER DISEASES OF THE CIRCULATORY SYSTEM Family history of diabetes mellitus - FAMILY HISTORY OF DIABETES MELLITUS documented in this encounter Discharge Summaries * Sudarshan Jones Jr., MD - 01/07/2020 12:25 PM CST [place], [place] Hospitalist Discharge Summary Patient Name: Jolene Gordon Patient : 1945 Room/Bed: [id number] Admission Date/Time: 01/05/2020 1:34 PM Discharge date: [...] she can get in touch with her automatic lathe setter because Protonix can increase serum levels of [...] Lying Pulse: 75 77 72 71 Resp: 18 20 17 18 Temp: 36.4 ??C (97.6 ??F) 36.8 ??C [...] Range Crossmatch Compatible Unit number for crossmatch [id number] Crossmatch Compatible Unit number for crossmatch [id number] Prepare RBC Collection Time: 01/05/20 6:43 PM Result Value Ref Range Unit Number [id number] Product code [id number] Blood Expiration Date [id number] Product Blood Type (for scanning) 5100 Product [...] requested 1 Units requested Ready Unit Number [id number] Product code [id number] Blood Expiration Date [id number] Product Blood Type (for scanning) 7300 Product [...] months. TECHNIQUE: [facility] COMPARISON: Chest x-ray 12/02/2019 FINDINGS: LUNGS/PLEURA: There [...] Your Medications These medications were sent to [id number] - [place] [address] AT [place] [address], [facility] [id number] ?? pantoprazole DR 40 mg EC tablet Patient Instructions: Activity: activity as tolerated Diet: regular diet Disposition: home Follow-up Contact Information for Follow-ups Pebbles Felton MD Specialty: Gastroenterology, Internal Medicine Relationship: Consulting Physician Rajendra [facility] [address] [facility] [address] Next Steps: Follow up Instructions: Please call [...] you can???t find the provider, please use: MISCELLANEOUS, NOTINFILE and put the name in the comments. Inez Long MD Specialty: Internal Medicine Relationship: PCP - [facility] Attributed PCP [address] [place] [address] Next Steps: Follow up Instructions: Please call [...] you can???t find the provider, please use: MISCELLANEOUS, NOTINFILE and put the name in the comments. Total time spent on day of discharge 25 minutes Signed: Sudarshan Jones Jr., MD Internal Medicine - Hospitalist [facility] - Adult Hospitalist Service 01/07/2020 12:25 PM Cc: Inez Long MD ER TESTER documented in this encounter Discharge Instructions * Discharge Instructions* Mary Aparicio RN - 01/07/2020 1:30 PM RUBBER TESTER Anemia WHAT YOU NEED TO KNOW: Anemia [...] ask them during your visits. ?? 2017 [employer] Information is for End User's use only and may not be sold, redistributed or otherwise used for commercial purposes. All illustrations and images included in CareNotes?? are the copyrighted property of [employer]. or [employer]. The above information is an federal aid coordinator only. It is not intended as medical advice for individual conditions or treatments. Talk to your doctor, nurse or pharmacist before following any medical regimen to see if it is safe and effective for you. ER TESTER documented in this encounter Medications at Time [...] of suspected active GI bleed, SCDs ordered ER TESTER * Carol Chan RN - 01/06/2020 2:02 [...] steps Medication management (self) Financial Resource Income Usp/Pension Financial assistance (na) Payor Source Medicare;Supplemental Potential Discharge Needs Home Health (na) Anticipated discharge level of care Private residence Pt/Family agrees with Anticipated Level of Care Yes Patient expects to be discharged to: Private residence Community Resources (na) Dialysis No Behavioral Health Services No ER TESTER * Pebbles Felton MD - 01/06/2020 9:57 [...] Range Crossmatch Compatible Unit number for crossmatch [id number] Prepare RBC Collection Time: 01/05/20 6:43 PM Result Value Ref Range Unit Number [id number] Product code [id number] Blood Expiration Date Product Blood Type (for [...] Can stop intravenous fluids. Pebbles Felton MD ER TESTER * Melisa Boss, RD - 01/06/2020 4:39 [...] Pt intake is inadequate. PO intakes: npo 2/10 Wt Readings from Last 10 Encounters: 01/05/20 [...] status Evidenced by: Physical finding ?? Interventions: [place] diet preferences within the limits of nutrition care order ?? Monitoring and Evaluation: Diet advancement, Discharge plans, Labs, PO intake ?? Goals: Advance to oral intake as medically able ? Estimated needs: ?? Total Kcal/kg Estimated Needs : 2150 based on Kcal/k. Type of Weight Used for Estimated Kcals: Current ?? MSJ Total Energy Needs: 2097 kcal using Stress Factor: 1.25 Activity Factor: [...] 50 mL/hr, Last Rate: 50 mL/hr (01/05/20 3974) sodium chloride 0.9%, 0-250 mL Sodium Date [...] Nutrition Follow-Up : 01/09/[address],LDN ER TESTER documented in this encounter H&P Notes * [...] Range Crossmatch Compatible Unit number for crossmatch [id number] Prepare RBC Collection Time: 01/05/20 6:43 PM Result Value Ref Range Unit Number [id number] Product code [id number] Blood Expiration Date Product Blood Type (for [...] months. TECHNIQUE: Frontal and lateral radiographs of [facility]. COMPARISON: Chest x-ray 12/02/2019 FINDINGS: LUNGS/PLEURA: There [...] Making Complexity: Moderate Time spent 52 minutes ER TESTER documented in this encounter Procedure Notes * Pebbles Felton MD - 01/07/2020 9:12 AM CSTAssociated Order(s): COLONOSCOPY [facility] Patient Name: Jolene Gordon Procedure Date: 01/07/2020 9:12 AM Date of : 1945 Admit Type: Inpatient Age: 74 Gender: Female Attending MD: Pebbles Felton M.D. Room: [facility] ENDOSCOPY ROOM 1 Note Status: Finalized Patient [...] under direct vision. The Pediatric Colonoscope PCF-H190L [id number] was introduced through the anus and advanced [...] 9:12 AM Procedure Code(s): --- Professional --- 45928, Colonoscopy, flexible; with removal of tumor(s), polyp(s), or other lesion(s) by snare technique 41217, 59, Colonoscopy, flexible; with biopsy, single or multiple Diagnosis Code(s): --- Professional --- K64.8, Other hemorrhoids D12.0, Benign neoplasm of cecum D12.4, Benign neoplasm of descending colon R19.5, Other fecal abnormalities D50.9, Iron deficiency anemia, unspecified K57.30, Diverticulosis of large intestine without perforation or abscess without bleeding CPT copyright 2017 [employer]. All rights reserved. The codes documented in this report are preliminary and upon electric motor tester assembler review may be revised to meet current compliance requirements. Recognized by the [employer] for promoting quality in endoscopy ER TESTER * Pebbles Felton MD - 01/07/2020 9:11 AM CSTAssociated Order(s): EGD [facility] Patient Name: Jolene Gordon Procedure Date: 01/07/2020 9:11 AM Date of : 1945 Admit Type: Inpatient Age: 74 Gender: Female Attending MD: Pebbles Felton M.D. Room: [facility] ENDOSCOPY ROOM 1 Note Status: Finalized Patient Profile: This is a 74 year old female. Patient admitted with severe anemia and occult blood in the stool. EGD for evaluation. Procedure: Upper GI endoscopy Indications: Iron deficiency anemia, Heme positive stool Referring MD: Inez oLng M.D. Providers: Pebbles Felton M.D. Impression: - [...] passed under direct vision. The Endoscope GIF-H190 [id number] was introduced through the mouth, and advanced [...] 9:11 AM Procedure Code(s): --- Professional --- 32221, Esophagogastroduodenoscopy, flexible, transoral; with biopsy, single or multiple Diagnosis Code(s): --- Professional --- K29.70, Gastritis, unspecified, without bleeding K44.9, Diaphragmatic hernia without obstruction or gangrene D50.9, Iron deficiency anemia, unspecified R19.5, Other fecal abnormalities CPT copyright 2017 [employer]. All rights reserved. The codes documented in this report are preliminary and upon electric motor tester assembler review may be revised to meet current compliance requirements. Recognized by the [employer] for promoting quality in endoscopy ER TESTER documented in this encounter Consult Notes * [...] evaluation. 6. Follow-up progress. Pebbles Felton MD ER TESTER documented in this encounter Nursing Notes * Lupe Cristina RN - 01/07/2020 2:29 PM CST Discharge instructions discussed. Verbalizes understanding of all instructions as written. Transported to [facility] [place] in stable condition with all personal belongings. Discharged home to [facility] at side for transport. ER TESTER documented in this encounter ED Notes * [...] review shows that patient was admitted into [facility] on 12/02/19 for bilateral pulmonary embolism. TTE [...] Inez Long MD. History provided by: Patient salt lifter used: No Patient History Patient Active Problem [...] mammogram, encounter for 1945 ??? Uterine cancer ([facility]) 04/2018 Past Surgical History: Procedure Laterality Date [...] time. Psychiatric: Mood and Affect: Mood normal. [facility] ECG 12 lead Date/Time: 01/05/2020 1:48 PM Performed by: Ana Stubbs MD Authorized by: Ana Stubbs MD Rate: ECG rate: 78 Rhythm: Rhythm: sinus rhythm Comments: Nothing acute. Patient Vitals for the past 24 hrs: BP Temp Temp src Pulse Resp SpO2 Height Weight 01/05/20 1915 129/56 37.3 ??C (99.2 ??F) Temporal 88 16 98 % -- -- 01/05/20 1857 122/58 36.7 ??C (98 ??F) Temporal 85 16 99 % -- -- 01/05/20 1810 -- -- -- -- -- -- 170.2 cm (5' 7 ) 86 kg (189 lb 9.5 oz) 01/05/20 1600 124/50 -- -- 91 -- 99 % -- -- 01/05/20 1430 116/58 -- -- 80 -- 100 % -- -- 01/05/20 1206 115/60 36.7 ??C (98.1 ??F) Temporal 83 18 97 % -- -- Labs [...] CROSSMATCH Crossmatch Compatible Unit number for crossmatch [id number] CBC WITH AUTO DIFFERENTIAL PREPARE RBC Units requested 1 Units requested Ready Narrative: Are special requirements needed? (all products are leukoreduced)->No PREPARE RBC Unit Number [id number] Product code [id number] Blood Expiration Date Product Blood Type (for [...] GI consult. Discussed with: Admitting physician and Script Supervisor They agree with : Admission ED Course [...] words and actions. Ana Stubbs MD 01/05/202026 ER TESTER * Starr Enriquez, RN - 01/05/2020 12:03 PM CST Pt to the ED with complaints of SOB and fatigue, states she had blood clots in both lungs recently.Pt able to speak complete sentences with no difficulty. ER TESTER documented in this encounter Miscellaneous Notes * Plan of Care - Lupe Cristina, TAO - 01/07/2020 2:02 PM CST Goals: Clinical [...] in room. Tolerated EGD/Colonoscopy well. Discharge pending. ER TESTER * Perioperative Nursing Note - Anita Badillo, TAO - 01/07/2020 10:[address] Felton spoke with Patient and regarding today's procedure. He recommends following upin 3 years for another colon screening and to follow up with Dr Long for regular labs to monitor hemoglobin levels. ER TESTER * Plan of Care - Marianne Masterson [...] Goal: Pain level will decrease Outcome: Progressing ER TESTER * Plan of Leyda - Doris Monroy [...] or discomfort. Tolerating clear liquids without nausea ER TESTER * Assessment & Plan Note - Neeru Gonzalez MD - 01/06/2020 5:45 AM CSTAssociated Problem(s): Malignant neoplasm of upper-inner quadrant of left breast in female, estrogen receptor positive (HCC) Hold letrozole for now as it increases risk for thromboembolism. ER TESTER * Assessment & Plan Note - Neeru [...] to monitor. Will hold anticoagulation for now. ER TESTER ER TESTER * Assessment & Plan Note - Neeru Gonzalez MD - 01/06/2020 5:42 AM CSTAssociated Problem(s): 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 rheumatoid factor (CMS/HCC) (HCC) Patient is on methotrexate which she takes on Sunday. ER TESTER * Assessment & Plan Note - Neeru Gonzalez MD - 01/06/2020 5:42 AM CSTAssociated Problem(s): Essential hypertension Currently normotensive. Continue carvedilol with hold parameters. Holding losartan and hydrochlorothiazide for now. ER TESTER * Plan of Care - Marianne Masterson [...] stable neurologic state will improve Outcome: Progressing ER TESTER * Plan of Care - Smith Guzman RN - 01/05/2020 5:53 [...] activity as tolerated. Summary: Care plan initiated ER TESTER documented in this encounter Plan of Treatment Not on file documented as of this encounter Procedures Procedure Name Priority Date/Time Associated Diagnosis Comments SURGICAL PATHOLOGY STAT 01/07/2020 11:54 AM RUBBER TESTER Iron deficiency anemia due to chronic blood loss Gastrointestina l hemorrhage associated with anorectal source H. PYLORI UREASE SCREEN (RADHA TEST) STAT 01/07/2020 9:40 AM RUBBER TESTER ENDO ADD ON COLON BIOPSY 020 9:19 AM RUBBER TESTER Iron deficiency anemia due to chronic blood loss Gastrointestina l hemorrhage associated with anorectal source ESOPHAGOGASTRODUODENOSCOPY BIOPSY 01/07/2020 9:19 AM RUBBER TESTER Iron deficiency anemia due to chronic blood loss Gastrointestina l hemorrhage associated with anorectal source COLON REMOVAL SNARE 01/07/2020 9:19 AM RUBBER TESTER Iron deficiency anemia due to chronic blood loss Gastrointestina l hemorrhage associated with anorectal source COLONOSCOPY 01/07/2020 9:12 AM RUBBER TESTER EGD 01/07/2020 9:11 AM RUBBER TESTER POCT GLUCOSE DEVICE Routine 01/07/2020 7:03 AM RUBBER TESTER EGFR Routine 01/07/2020 3:25 AM RUBBER TESTER CBC WITHOUT DIFFERENTIAL Routine 020 3:25 AM RUBBER TESTER PHOSPHORUS Routine 01/07/2020 3:25 AM RUBBER TESTER MAGNESIUM Routine 01/07/2020 3:25 AM RUBBER TESTER LACTATE DEHYDROGENASE Routine 01/07/2020 3:25 AM RUBBER TESTER BASIC METABOLIC PANEL Routine 01/07/2020 3:25 AM RUBBER TESTER TRANSFUSE RED BLOOD CELLS Timed 2019 5:14 PM RUBBER TESTER PREPARE RBC Timed 01/06/2020 4:16 PM RUBBER TESTER DIFFERENTIAL AUTO Routine 01/06/2020 4:32 AM RUBBER TESTER CBC WITH AUTO DIFFERENTIAL Routine 01/06 4:32 AM RUBBER TESTER PREPARE RBC Timed 01/05/2020 7:00 PM RUBBER TESTER TRANSFUSE RED BLOOD CELLS Timed 2019 6:57 PM RUBBER TESTER PREPARE RBC Routine 01/05/2020 6:43 PM RUBBER TESTER ABO/RH STAT 01/05/2020 4:00 PM RUBBER TESTER CROSSMATCH STAT 01/05/2020 4:00 PM RUBBER TESTER ANTIBODY SCREEN STAT 01/05/2020 4:00 PM RUBBER TESTER TYPE AND SCREEN STAT 01/05/2020 4:00 PM RUBBER TESTER POC GUAIAC OCCULT BLOOD, FEC AL, NOT FOR NEOPLASM SCREENING Routine 01/05/2020 2:17 PM RUBBER TESTER ECG 12-LEAD STAT 01/05/2020 1:48 PM RUBBER TESTER APTT STAT 01/05/2020 12:42 PM RUBBER TESTER PROTIME-INR STAT 01/05/2020 12:42 PM RUBBER TESTER D-DIMER, QUANTITATIVE STAT 01/05/2020 12:42 PM RUBBER TESTER EGFR STAT 01/05/2020 12:41 PM RUBBER TESTER DIFFERENTIAL AUTO STAT 01/05/2020 12:41 PM RUBBER TESTER B ABO / RH CONFIRMATION TESTING STAT 01/05/2020 12:41 PM RUBBER TESTER PRO B-TYPE NATRIURETIC PEPTIDE STAT 0 01/05/2020 12:41 PM RUBBER TESTER THYROID FUNCTION CASCADE Add-On 020 12:41 PM RUBBER TESTER IRON PROFILE W/ IBC STAT 01/05/2020 12:41 PM RUBBER TESTER CBC WITH AUTO DIFFERENTIAL STAT 01/05 12:41 PM RUBBER TESTER TROPONIN T STAT 01/05/2020 12:41 PM RUBBER TESTER FOLATE Routine 01/05/2020 12:41 PM RUBBER TESTER VITAMIN B12 Routine 01/05/2020 12:41 PM RUBBER TESTER COMPREHENSIVE METABOLIC PANEL STAT 12:41 PM RUBBER TESTER XR CHEST PA LATERAL 2 VIEWS ED 12/27 12:23 PM RUBBER TESTER documented in this encounter Results * Surgical pathology (01/07/2020 11:54 AM RUBBER TESTER) Tissue (Polyp(s), colon/colorectal, esophageal, gastric) 01/07/2020 9:58 AM RUBBER TESTER Tissue (Polyp(s), colon/colorectal, esophageal, gastric) 01/07/2020 9:58 AM RUBBER TESTER Narrative PATHOLOGY [facility] - 01/08/2020 10:09 AM RUBBER TESTER [facility] results best viewed via link to PDF [facility] Department of Pathology [address] [place] [address] Final Report Patient Name: ??JOLENE GORDON Address: ??[address] [place] [address], ??[place], [place] ??[address] Gender: ??F : ??1945 (Age: 74) Service: ??Medical Location: ??[facility] Hospital #: ??[id number] Patient Type: ??[facility] IP Accession # ?[id number] Taken: ??01/07/2020 Received: ??01/07/2020 Accessioned: ??01/07/2020 Reported: [...] 2-8 mm. ??All in B. ??Kishore Perea MD/Richie NoonanA. REPORT IMAGES AND SCANNED DOCUMENTS, IF INCLUDED, ONLY VIEWABLE IN PDF VERSION OF REPORT The performance characteristics of some immunohistochemical stains, fluorescence in-situ hybridization tests and immunophenotyping by flow cytometry cited in this report (if any) were determined by the Surgical Pathology Department at [facility] as part of an ongoing housing quality standard inspector program and in compliance with federally mandated [...] characteristics determined by the Surgical Pathology Department [facility]. ??It has not been cleared or approved by the U. S. Food and Drug Administration. Pebbles Felton MD LAB PATHOLOGY ORDERABLES F inal Result PATHOLOGY [facility] [address] [place] [address] * H. pylori urease screen (RADHA test) Tissue (01/07/2020 9:40 AM RUBBER TESTER) H. pylori, rapid (RADHA) Negative Negative [facility] Tissue 01/07/2020 9:40 AM RUBBER TESTER 01/07/2020 12:00 PM RUBBER TESTER Pebbles Felton MD LAB MICROBIOLOGY - GENERAL ORDERABLES Final Result [facility] ([place] 1 [facility] Department [place] [address] * COLONOSCOPY (01/07/2020 9:12 AM RUBBER TESTER) Anatomical Region Laterality Modality Other Narrative Procedure Note Pebbles Felton MD - 01/07/2020 9:12 AM CST [facility] Patient Name: Jolene Gordon Procedure Date: 01/07/2020 9:12 AM Date of : 1945 Admit Type: Inpatient Age: 74 Gender: Female Attending MD: Pebbles Felton M.D. Room: [facility] ENDOSCOPY ROOM 1 Note Status: Finalized Patient [...] passed under direct vision.The Pediatric Colonoscope PCF-H190L [id number] was introduced through the anus and advanced [...] 9:12 AM Procedure Code(s): --- Professional --- 06123, Colonoscopy, flexible; with removal of tumor(s), polyp(s), or other lesion(s) by snare technique 97885, 59, Colonoscopy, flexible; with biopsy, single or multiple Diagnosis Code(s): --- Professional --- K64.8, Other hemorrhoids D12.0, Benign neoplasm of cecum D12.4, Benign neoplasm of descending colon R19.5, Other fecal abnormalities D50.9, Iron deficiency anemia, unspecified K57.30, Diverticulosis of large intestine without perforation orabscess without bleeding CPT copyright 2017 [employer]. All rights reserved. The codes documented in this report are preliminary and upon electric motor tester assembler reviewmay be revised to meet current compliance requirements. Recognized by the [employer] for promoting quality in endoscopy us Pebbles Felton MD ENDOSCOPY PROCEDURES Final Result * EGD (01/07/2020 9:11 AM RUBBER TESTER) Anatomical Region Laterality Modality Other Narrative Procedure Note Pebbles Felton MD - 01/07/2020 9:11 AM CST [facility] Patient Name: Jolene Gordon Procedure Date: 01/07/2020 9:11 AM Date of : 1945 Admit Type: Inpatient Age: 74 Gender: Female Attending MD: Pebbles Felton M.D. Room: [facility] ENDOSCOPY ROOM 1 Note Status: Finalized Patient [...] was passed under direct vision.The Endoscope GIF-H190 [id number] was introduced throughthe mouth, and advanced to [...] 9:11 AM Procedure Code(s): --- Professional --- 53411, Esophagogastroduodenoscopy, flexible, transoral; with biopsy, single or multiple Diagnosis Code(s): --- Professional --- K29.70, Gastritis, unspecified, without bleeding K44.9, Diaphragmatic hernia without obstruction or gangrene D50.9, Iron deficiency anemia, unspecified R19.5, Other fecal abnormalities CPT copyright 2017 [employer]. All rights reserved. The codes documented in this report are preliminary and upon electric motor tester assembler reviewmay be revised to meet current compliance requirements. Recognized by the [employer] for promoting quality in endoscopy Pebbles Felton MD ENDOSCOPY PROCEDURES Final Result * (ABNORMAL) POCT glucose (01/07/2020 7:03 AM RUBBER TESTER) Pathologist [facility] Glucose, POC 143(H) 71 - 98 mg/dL MEHRAN THOMAS ([place]) Blood specimen (specimen) 01/07/2020 7:03 AM RUBBER TESTER 01/07/2020 7:03 AM RUBBER TESTER Sduarshan Jones Jr., MD LAB POCT ORDERABLES - DEVICE Final Result MEHRAN THOMAS ([place]) 1 [facility] Department [place] [address] * eGFR (01/07/2020 3:25 AM RUBBER TESTER) Pathologist [facility] eGFR 89 mL/min/1.7 3 m2 MEHRAN THOMAS ([place]) Comment: Interpretive Data Reference Interval Normal ?>/= 90 mL/min/1.73m2 Mildly decreased* ? 60 - 89 mL/min/1.73m2 Mildly to moderately decreased ?45 - 59 mL/min/1.73m2 Moderately to severely decreased ??30 - 44 mL/min/1.73m2 Severely decreased ?15 - 29 mL/min/1.73m2 Kidney Failure ?< 15 ??mL/min/1.73m2 *Relative to young adult level If -Tai[place]ese multiply value by 1.16. Estimated glomerular filtration [...] 2016. Blood specimen (specimen) 01/07/2020 3:25 AM RUBBER TESTER 01/07/2020 4:14 AM RUBBER TESTER us Sudarshan Jones Jr., MD LAB BLOOD ORDERABLE S Final Result Performing Organization Address [facility]/ZIP Co de Phone Number MEHRAN THOMAS ([place]) 1 [facility] Department [place] [address] * Phosphorus (01/07/2020 3:25 AM RUBBER TESTER) Phosphorus, pl 4.4 2.3 - 4.5 mg/dL MEHRAN THOMAS ([place]) Blood specimen (specimen) 01/07/2020 3:25 AM RUBBER TESTER 01/07/2020 4:14 AM RUBBER TESTER us Pebbles Felton MD LAB BLOOD ORDERABLES Final Result Performing Organization Address City/State/[facility] Co de Phone Number [facility] ([place]) [address] Department [place] [address] * Magnesium (01/07/2020 3:25 AM RUBBER TESTER) Magnesium 2.0 1.4 - 2.5 mg/dL [facility] ([place]) Blood specimen (specimen) 01/07/2020 3:25 AM RUBBER TESTER 01/07/2020 4:14 AM RUBBER TESTER Pebbles Felton MD LAB BLOOD ORDERABLES Final Result [facility] ([place]) 1 [facility] [place] [address] * Basic metabolic panel (01/07/2020 3:25 AM RUBBER TESTER) Sodium 142 135 - 145 mmol/L [facility] ([place]) Potassium, pl 3.4 3.3 - 4.9 mmol/L [facility] Chloride 105 97 - 110 mmol/L [facility] ([place] CO2 24 22 - 32 mmol/L [facility] ([place]) Anion gap 13 2 - 15 mmol/L [facility] ([place] BUN 8 8 - 25 mg/dL [facility] ([place] Creatinine 0.63 0.60 - 1.10 mg/dL [facility] ([place]) Glucose 108 70 - 199 mg/dL [facility] ([place]) Comment: Interpretive Data Fasting glucose [...] ([place]) Blood specimen (specimen) 01/07/2020 3:25 AM RUBBER TESTER 01/07/2020 4:14 AM RUBBER TESTER us Pebbles Felton MD LAB BLOOD ORDERABLES Final Result [facility] ([place]) 1 [facility] [place] [place] [address] * (ABNORMAL) CBC without differential (01/07/2020 3:25 AM RUBBER TESTER) WBC 6.6 3.8 - 9.9 K/cumm [facility] ([place]) Hgb 8.6(L) 11.9 - 15.5 g/dL [facility] ([place]) Hct 27.9(L) 35.6 - 45.5 % [facility] ([place]) Plt 220 150 - 400 K/cumm C[facility]ER [...] ([place]) Blood specimen (specimen) 01/07/2020 3:25 AM RUBBER TESTER 01/07/2020 4:14 AM RUBBER TESTER us Pebbles Felton MD LAB BLOOD ORDERABLES Final Result [facility] ([place]) 1 [facility] [place] [address] * Lactate dehydrogenase (LD) (01/07/2020 3:25 AM RUBBER TESTER) Lactate dehydrogenase (LDH) 167 100 - 250 Units/L [facility] ([place]) Blood specimen (specimen) 01/07/2020 3:25 AM RUBBER TESTER 01/07/2020 4:14 AM RUBBER TESTER us Pebbles Felton MD LAB BLOOD ORDERABLES Final Result Performing Organization Address City/[facility]/ZIP Co de Phone Number [facility] ([place]) 1 [facility] [place] [address] * Transfuse RBC (01/06/2020 8:05 PM RUBBER TESTER) Blood specimen (specimen) us Sudarshan Jones Jr., MD BLOOD TRANSFUSION O RDERABLES Final Result Performing Organization Address City/[facility] Co de Phone Number [facility] ([place]) 1 [facility] [place] [address] * Transfuse RBC: 1 Units (01/06/2020 8:05 PM RUBBER TESTER) Blood specimen (specimen) us Sudarshan Jones Jr., MD BLOOD TRANSFUSION O RDERABLES Final Result * Prepare RBC: 1 Units (01/06/2020 4:16 PM RUBBER TESTER) Units requested 1 [facility] ([place]) Units requested Ready [facility] ([place]) Unit Number [id number] [facility] ([place]) Product code [id number] [facility] ([place]) Blood Expiration Date 027256160099 [facility] ([place]) Product Blood Type (for scanning) 7300 [facility] ([place]) Product Blood Type BPOS [facility] ([place]) Dispense Status DISPENSED [facility] ([place]) Blood specimen (specimen) 01/06/2020 4:16 PM RUBBER TESTER 01/06/2020 4:16 PM RUBBER TESTER us Sudarshan Jones Jr., MD BLOOD BANK PRODUCT ORDERABLES Final Result MEHRAN THOMAS ([place]) 1 [facility] Department of Laboratories [place], [place] [id number] * (ABNORMAL) Differential, auto (01/06/2020 4:32 AM RUBBER TESTER) Neutrophil abs 4.4 1.7 - 6.5 K/cumm [facility] ([place]) Imm gran abs 0.0 0.0 - 0.1 K/cumm [facility] ([place]) Lymphocyte abs 0.6(L) 0.8 - 3.3 K/cumm [facility] ([place]) Monocyte abs 0.4 0.2 - 0.8 K/cumm [facility] ([place]) Eosinophil abs 0.2 0.0 - 0.5 K/cumm [facility] ([place]) Basophil abs 0.0 0.0 - 0.1 K/cumm [facility] ([place]) Neutrophil pct 77.6 % [facility] ([place]) Comment: Interpretive Data Percent cell count reference ranges are not reported, since discordance with absolute values may lead to misinterpretation of CBC data. Current Interpretive Data was last revised on 2018. Imm gran pct 0.7 % [facility] ([place]) Comment: Interpretive Data Percent cell count reference ranges are not reported, since discordance with absolute values may lead to misinterpretation of CBC data. Current Interpretive Data was last revised on 2018. Lymphocyte pct 11.1 % [facility] ([place]) Comment: Interpretive Data Percent cell count reference [...] 2018. Blood specimen (specimen) 01/06/2020 4:32 AM RUBBER TESTER 01/06/2020 4:37 AM RUBBER TESTER us Ana Stubbs MD LAB BLOOD ORDERABLES Final R esult [facility] ([place]) 1 [facility] Department [place] [address] * (ABNORMAL) CBC with auto differential (01/06/2020 4:32 AM RUBBER TESTER) WBC 5.7 3.8 - 9.9 K/cumm CERNER [...] K/cumm [facility] ([place]) Blood specimen (specimen) 01/06/2020 4:32 AM RUBBER TESTER 01/06/2020 4:37 AM RUBBER TESTER us Ana Stubbs MD LAB BLOOD ORDERABLES Final R esult MEHRAN THOMAS ([place]) 1 [facility] [place] [address] * Transfuse RBC (01/05/2020 10:23 PM RUBBER TESTER) Blood specimen (specimen) Pebbles Felton MD BLOOD TRANSFUSION ORDERABL ES Final Result Performing Organization Address [facility]/ZIP Co de Phone Number MEHRAN THOMAS ([place]) 1 [facility] [place] [address] * Transfuse RBC: 1 Units (01/05/2020 10:23 PM RUBBER TESTER) Blood specimen (specimen) Pebbles Felton MD BLOOD TRANSFUSION ORDERABL ES Final Result * Prepare RBC: 1 Units (01/05/2020 7:00 PM RUBBER TESTER) Units requested 1 [facility] ([place]) Units requested Ready [facility] ([place]) Blood specimen (specimen) 01/05/2020 7:00 PM RUBBER TESTER 01/05/2020 7:00 PM RUBBER TESTER Narrative MEHRAN THOMAS ([place]) - 01/05/2020 7:00 PM RUBBER TESTER Are special requirements needed? (all products are leukoreduced)->No us Pebbles Felton MD BLOOD BANK PRODUCT ORDERAB LES Final Result MEHRAN THOMAS ([place]) 1 [facility] [place] [address] * Prepare RBC (01/05/2020 6:43 PM RUBBER TESTER) Unit Number [id number] [facility] ([place]) Product code [id number] [facility] ([place]) Blood Expiration Date [id number] [facility] ([place]) Product Blood Type (for scanning) 5100 [facility] ([place]) Product Blood Type OPOS [facility] ([place]) Dispense Status DISPENSED [facility] ([place]) us Pebbles Felton MD BLOOD BANK PRODUCT ORDERAB LES Final Result [facility] ([place]) 1 [facility] [place] [address] * Crossmatch (01/05/2020 4:00 PM RUBBER TESTER) Crossmatch Compatible [facility] ([place]) Unit number for crossmatch [id number] [facility] ([place]) Crossmatch Compatible [facility] ([place]) Unit number for crossmatch [id number] [facility] ([place]) Blood specimen (specimen) 01/05/2020 4:00 PM RUBBER TESTER 01/05/2020 4:03 PM RUBBER TESTER us Jacklyn Spear MD LAB BLOOD BANK TEST ORDE NILS Edited Result - Final Performing Organization Address [facility] Co de Phone Number [facility] ([place]) 1 [facility] [place] [address] * Antibody screen (01/05/2020 4:00 PM RUBBER TESTER) Rocky, indirect, Gel Interpretation Negative ABSC [facility] ([place]) Blood specimen (specimen) 01/05/2020 4:00 PM RUBBER TESTER 01/05/2020 4:03 PM RUBBER TESTER Narrative [facility] ([place]) - 01/05/2020 4:45 PM RUBBER TESTER Has the patient had Daratumumab (Darzalex) in the past 6 months?->Unknown us Ana Stubbs MD LAB BLOOD BANK TEST ORDERABL ES Final Result MEHRAN THOMAS ([place]) 1 [facility] Department [place] [address] * ABO/Rh (01/05/2020 4:00 PM RUBBER TESTER) ABO/Rh B Positive [facility] ([place]) Blood specimen (specimen) 01/05/2020 4:00 PM RUBBER TESTER 01/05/2020 4:03 PM RUBBER TESTER Narrative MEHRAN THOMAS ([place]) - 01/05/2020 4:45 PM RUBBER TESTER Has the patient had Daratumumab (Darzalex) in the past 6 months?->Unknown us Ana Stubbs MD LAB BLOOD BANK TEST ORDERABL ES Final Result Performing Organization Address [facility] Co de Phone Number MEHRAN THOMAS ([place]) 1 [facility] [place] [address] * (ABNORMAL) POC Guaiac occult blood, fecal, non-neoplasm (01/05/2020 2:17 PM RUBBER TESTER) Guaiac occult blood, fecal Positive QC Positive Control Acceptable Stool 01/05/2020 2:17 PM RUBBER TESTER us Ana Stubbs MD POINT OF CARE TEST ORDERABLE S Final Result * ECG 12 lead (01/05/2020 1:48 PM RUBBER TESTER) 01/05/2020 1:48 PM RUBBER TESTER Narrative [facility] - 01/06/2020 6:07 AM RUBBER TESTER Vent Rate: 78 bpm RR Interval: 760 msec IN Interval: 173 msec QRS Duration: 105 msec QT Interval: 404 msec QTC Interval: 438 msec P-R-T [place]: 49 - -9 - 74 degrees SINUS RHYTHM NORMAL ECG Electronically Signed By: Quang Diego MD us Ana Stubbs MD ECG ORDERABLES Final Result Performing Organization Address City/[facility]/ZIP Co de Phone Number [facility] [employer] [facility] * aPTT (01/05/2020 12:42 PM RUBBER TESTER) aPTT 30 25 - 37 sec MEHRAN [facility] ([place]) Comment: Interpretive data Heparin therapeutic range: 60-94 seconds Range based on correlation with therapeutic heparin activity range of 0.3-0.7 units/ml. Current interpretive data was last revised on 2019. Blood specimen (specimen) 01/05/2020 12:42 PM RUBBER TESTER 01/05/2020 1:42 PM RUBBER TESTER Ana Stubbs MD LAB BLOOD ORDERABLES Final R esult Performing Organization Address [facility] Co de Phone Number [facility] ([place]) 1 [facility] [place] [address] * (ABNORMAL) Protime-INR (01/05/2020 12:42 PM RUBBER TESTER) Pathologist [facility] PT 18.1(H) 9.5 - 13.0 sec MEHRAN [facility] ([place]) INR 1.6(H) 0.9 - 1.2 [facility] ([place]) Comment: Interpretive data Oral anticoagulant therapeutic ranges: Venous thromboembolism prophylaxis or treatment: 2.0-3.0 CARDIOLOGY Standard range: 2.0-3.0 High-intensity range: 2.5-3.5 Refer to indication-specific guidelines for appropriate target ranges for prosthetic heart valve replacement. Current interpretive data was last revised on 2019. Blood specimen (specimen) 01/05/2020 12:42 PM RUBBER TESTER 01/05/2020 1:42 PM RUBBER TESTER Ana Stubbs MD LAB BLOOD ORDERABLES Final R esult Performing Organization Address City/[facility] Co de Phone Number [facility] ([place]) 1 [facility] [place] [address] * D-dimer, quantitative (01/05/2020 12:42 PM RUBBER TESTER) D-Dimer 291 <=499 ng/mL [facility] ([place] Comment: Interpretive data FDA approved the [...] 68, VTE cut-off 680 ng/ml FEU. References; Willy HT et al. Brit Med J. 2013;346:f2492. Woody et al. Annals Int Med. 2015;163:701-11. Current interpretive data was last revised on 2019. Blood specimen (specimen) 01/05/2020 12:42 PM RUBBER TESTER 01/05/2020 1:42 PM RUBBER TESTER Ana Stubbs MD LAB BLOOD ORDERABLES Final R esult Performing Organization Address [facility] Co de Phone Number MEHRAN THOMAS ([place]) 1 [facility] [place] [address] * TSH reflex to free T4 (01/05/2020 12:41 PM RUBBER TESTER) TSH 2.85 0.30 - 4.20 mcIUnit/mL [facility] ([place]) Blood specimen (specimen) 01/05/2020 12:41 PM RUBBER TESTER 01/06/2020 7:16 AM RUBBER TESTER Narrative MEHRAN THOMAS ([place]) - 01/06/2020 7:51 AM RUBBER TESTER Use already drawn blood Neeru Gonzalez MD LAB BLOOD ORDERABLES Final Resul t Performing Organization Address City/[facility]/ZIP Co de Phone Number MEHRAN THOMAS ([place]) 1 [facility] [place] [address] * ABO / Rh Confirmation Testing (01/05/2020 12:41 PM RUBBER TESTER) ABO/Rh Confirmation B Positive MEHRAN THOMAS ([place]) Blood specimen (specimen) 01/05/2020 12:41 PM RUBBER TESTER 01/05/2020 6:17 PM RUBBER TESTER Ana Stubbs MD LAB BLOOD ORDERABLES Final R esult Performing Organization Address [facility]/ZIP Co de Phone Number MEHRAN THOMAS ([place]) 1 [facility] [place] [place] [address] * Folate (01/05/2020 12:41 PM RUBBER TESTER) Pathologist [facility] Folic acid 9.5 >=5.0 ng/mL [facility] ([place]) Comment:Testing performed by : [facility], [address] [place] [address], [id number] Blood specimen (specimen) 01/05/2020 12:41 PM RUBBER TESTER 01/05/2020 7:20 PM RUBBER TESTER Ana Stubbs MD LAB BLOOD ORDERABLES Final R esult Performing Organization Address [facility] Co de Phone Number MEHRAN THOMAS ([place]) 1 [facility] [place] [address] * Vitamin B12 (01/05/2020 12:41 PM RUBBER TESTER) Pathologist [facility] Vitamin B12 496 230 - 1,250 pg/mL [facility] ([place]) Comment:Testing performed by : [facility], [address] [place] [address]., [id number] Blood specimen (specimen) 01/05/2020 12:41 PM RUBBER TESTER 01/05/2020 7:20 PM RUBBER TESTER Ana Stubbs MD LAB BLOOD ORDERABLES Final R esult Performing Organization Address City/[facility]/ZIP Co de Phone Number MEHRAN THOMAS ([place]) 1 [facility] [place] [address] * (ABNORMAL) Iron profile w/ IBC (01/05/2020 12:41 PM RUBBER TESTER) Pathologist [facility] Iron 11(L) 35 - 145 mcg/dL [facility] ([place]) TIBC 449(H) 250 - 400 mcg/dL [facility] ([place]) Transferrin saturation 2(L) 20 - 50 % [facility] ([place]) Blood specimen (specimen) 01/05/2020 12:41 PM RUBBER TESTER 01/05/2020 2:29 PM RUBBER TESTER us Ana Stubbs MD LAB BLOOD ORDERABLES Final R esult Performing Organization Address City/[facility] Co de Phone Number MEHRAN THOMAS ([place]) 1 [facility] [place] [place] [employer] [place] [address] * eGFR (01/05/2020 12:41 PM RUBBER TESTER) eGFR 78 mL/min/1.7 3 m2 MEHRAN THOMAS ([place]) Comment: Interpretive Data Reference Interval Normal ?>/= 90 mL/min/1.73m2 Mildly decreased* ? 60 - 89 mL/min/1.73m2 Mildly to moderately decreased ?45 - 59 mL/min/1.73m2 Moderately to severely decreased ??30 - 44 mL/min/1.73m2 Severely decreased ?15 - 29 mL/min/1.73m2 Kidney Failure ?< 15 ??mL/min/1.73m2 *Relative to young adult level If -Tai[place]ese multiply value by 1.16. Estimated glomerular filtration [...] 2016. Blood specimen (specimen) 01/05/2020 12:41 PM RUBBER TESTER 01/05/2020 12:56 PM RUBBER TESTER us Ana Stubbs MD LAB BLOOD ORDERABLES Final R esult Performing Organization Address City/[facility] Co de Phone Number MEHRAN THOMAS ([place]) [address] Department [place] [address] * (ABNORMAL) Differential, auto (01/05/2020 12:41 PM RUBBER TESTER) Neutrophil abs 8.4(H) 1.7 - 6.5 K/cumm [facility] ([place]) Imm gran abs 0.1 0.0 - 0.1 K/cumm [facility] ([place]) Lymphocyte abs 0.5(L) 0.8 - 3.3 K/cumm [facility] ([place]) Monocyte abs 0.5 0.2 - 0.8 K/cumm [facility] ([place]) Eosinophil abs 0.2 0.0 - 0.5 K/cumm [facility] ([place]) Basophil abs 0.0 0.0 - 0.1 K/cumm [facility] ([place]) Neutrophil pct 86.5 % [facility] ([place]) Comment: Interpretive Data Percent cell count reference ranges are not reported, since discordance with absolute values may lead to misinterpretation of CBC data. Current Interpretive Data was last revised on 2018. Imm gran pct 0.6 % [facility] ([place]) Comment: Interpretive Data Percent cell count reference ranges are not reported, since discordance with absolute values may lead to misinterpretation of CBC data. Current Interpretive Data was last revised on 2018. Lymphocyte pct 5.2 % [facility] ([place]) Comment: Interpretive Data Percent cell count reference ranges are not reported, since discordance with absolute values may lead to misinterpretation of CBC data. Current Interpretive Data was last revised on 2018. Monocyte pct 5.3 % [facility] ([place]) Comment: Interpretive Data Percent cell count reference ranges are not reported, since discordance with absolute values may lead to misinterpretation of CBC data. Current Interpretive Data was last revised on 2018. Eosinophil pct 2.0 % [facility] ([place]) Comment: Interpretive Data Percent cell count reference ranges are not reported, since discordance with absolute values may lead to misinterpretation of CBC data. Current Interpretive Data was last revised on 2018. Basophil pct 0.4 % [facility] ([place]) Comment: Interpretive Data Percent cell count reference ranges are not reported, since discordance with absolute values may lead to misinterpretation of CBC data. Current Interpretive Data was last revised on 2018. Blood specimen (specimen) 01/05/2020 12:41 PM RUBBER TESTER 01/05/2020 12:56 PM RUBBER TESTER Ana Stubbs MD LAB BLOOD ORDERABLES Final R [facility] Performing Organization Address [facility] Co de Phone Number JENNIFERVAHE THOMAS ([place]) 1 [facility] [place] [address] * Troponin T (01/05/2020 12:41 PM RUBBER TESTER) Troponin T <0.01 0.00 - 0.01 ng/mL [facility]AN THOMAS ([place]) Comment: Interpretive Data Reference ranges for children <18 years of age have not been established. - > or = 18 years: Serial determinations are recommended for the diagnosis of myocardial infarction. ??Temporal rise and fall are consistent with myocardial infarction when at least one value is above the 99th percentile upper reference limit for troponin assay. ??Journal of the [place] 2012;60:1581-98. Current Interpretive Data Last Revised Date: 2018. Blood specimen (specimen) 01/05/2020 12:41 PM RUBBER TESTER 01/05/2020 12:56 PM RUBBER TESTER Ana Stubbs MD LAB BLOOD ORDERABLES Final R [facility] Performing Organization Address City/[facility] Co de Phone Number JENNIFERVAHE [facility] ([place]) 1 [facility] [place] [address] * Pro B-type natriuretic peptide (01/05/2020 12:41 PM RUBBER TESTER) NT-proBNP 86 <=300 pg/mL [facility]AN THOMAS ([place]) Comment: Interpretive Comments: A. Dyspnea in Acute [...] et.al. Eur Heart J. 2006:27:330-337. 2. Shadi HORTA, Karen TAYLOR. J. AM Nabil Cardiol: Cardiovasc Imag. 2009;2: 216- 225. Interpretive Data Last Revised Date: 2018. Blood specimen (specimen) 01/05/2020 12:41 PM RUBBER TESTER 01/05/2020 12:56 PM RUBBER TESTER us Ana Stubbs MD LAB BLOOD ORDERABLES Final R esult [facility] [place] 1 [facility] Department of [employer] [place], [place] [id number] * Comprehensive metabolic panel (01/05/2020 12:41 PM RUBBER TESTER) Sodium 135 135 - 145 mmol/L CERNER [...] ([place]) Blood specimen (specimen) 01/05/2020 12:41 PM RUBBER TESTER 01/05/2020 12:56 PM RUBBER TESTER us Ana Stubbs MD LAB BLOOD ORDERABLES Final R esult [facility] ([place]) 1 [facility] [place] [address] * (ABNORMAL) CBC with auto differential (01/05/2020 12:41 PM RUBBER TESTER) WBC 9.7 3.8 - 9.9 K/cumm CERNER [...] ([place]) Blood specimen (specimen) 01/05/2020 12:41 PM RUBBER TESTER 01/05/2020 12:56 PM RUBBER TESTER us Ana Stubbs MD LAB BLOOD ORDERABLES Final R esult [facility] ([place]) 1 [facility] Department [place] [address] * XR Chest Pa Lateral 2 Views (01/05/2020 12:23 PM RUBBER TESTER) Anatomical Region Laterality Modality Body, Chest N/A Computed Radiogr aphy 01/05/2020 12:3 1 PM RUBBER TESTER Impressions 01/05/2020 12:32 PM RUBBER TESTER 1. ??No acute abnormality. 2. ??Moderate to large hiatal hernia. Electronically signed by: Jonathan Barber M.D. Narrative 01/05/2020 12:32 PM RUBBER TESTER EXAMINATION: XR CHEST PA LATERAL 2 VIEWS [...] hernia. Electronically signed by: Jonathan Barber M.D. nAa Stubbs MD IMG XR PROCEDURES Final Resu [...] obstruction or gangrene documented in this encounter Admitting Diagnoses Diagnosis Iron deficiency anemia due to chronic blood loss Iron deficiency anemia secondary to blood loss (chronic) Gastrointestinal hemorrhage associated with anorectal source documented in this encounter Administered Medications Inactive Administered Medications - up to 3 most recent administrations Medication Order MAR Action Action Date Dose Rate Site bisacodyl EC (DULCOLAX EC) tablet 15 mg 15 mg, oral, Once, On Sun01/06/20 at 0900, For 1 dose, Do not crush, chew, cut, dissolve, open or otherwise manipulate tablet/capsule., Indications: colon prepIndications:colon prep Given 01/06/2020 8:28 AM RUBBER TESTER 15 mg carvediloL (COREG) tablet 6.25 mg 6.25 mg, oral, 2 times daily with meals (bkfst, dinner), First dose on Sun01/06/20 at 0800, Hold for SBP<105 and/or HR<55 Given 01/07/2020 12:08 PM RUBBER TESTER 6.25 mg Given 01/06/2020 5:49 PM RUBBER TESTER 6.25 mg Given 01/06/2020 8:09 AM RUBBER TESTER 6.25 mg ferric gluconate (FERRLECIT) 125 mg of elemental iron in sodium chloride 0.9% 100 mL IVPB 125 mg of elemental iron, intravenous, at 110 mL/hr, Administer over 60 Minutes, Once, On Sun01/06/20 at 0800, For 1 dose, Room temperature only New Bag 01/06/2020 8:29 AM RUBBER TESTER 125 mg of elemental iron 110 mL/hr magnesium citrate oral solution 296 mL 296 mL, oral, Once, On Sun01/07/20 at 0400, For 1 dose, Pre-Op/Floor (GI), Administer at 4:00 AM on the day of the procedure., Indications: Bowel EvacuationIndications:Bowel Evacuation Given 01/07/2020 4:21 AM RUBBER TESTER 296 mL ondansetron (ZOFRAN) injection 4 mg 4 mg, intravenous, Administer over 2 Minutes, Every 6 hours PRN, nausea, vomiting, if not tolerating PO, Starting on Sun01/06/20 at 0541, Indications: Nausea and VomitingIndications:Nausea and Vomiting ondansetron ODT (ZOFRAN-ODT) disintegrating tablet 4 mg 4 mg, oral, Every 6 hours PRN, nausea, vomiting, Starting on Sun01/06/20 at 0541, Indications: Nausea and VomitingIndications:Nausea and Vomiting polyethylene glycol (MIRALAX) powder 119 g 119 g, oral, 2 times daily, First [...] be consumed within 2 hours., Indications: Bowel EvacuationIndications:Bowel Evacuation Given 01/06/2020 7:51 PM RUBBER TESTER 119 g Given 01/06/2020 4:09 PM RUBBER TESTER 119 g sodium chloride 0.9% flush 0.5-20 mL 0.5-20 mL, intra-catheter, Every 8 hours scheduled, First dose on Sun01/06/20 at 0615, Flush volume based on line type and size. Given 01/06/2020 4:09 PM RUBBER TESTER 10 mL sodium chloride 0.9% infusion 50 mL/hr, intravenous, Continuous, Starting on Sun01/05/20 at 1500 New Bag 01/06/2020 8:05 AM RUBBER TESTER 50 mL/hr 50 mL/hr Rate/Dose Change 01/05/2020 5:54 PM RUBBER TESTER 50 mL/hr 50 mL/h r New Bag 01/05/2020 3:21 PM RUBBER TESTER 150 mL/hr 150 mL/hr sodium chloride 0.9% infusion 30 mL/hr, intravenous, Continuous, Starting on Sun01/07/20 at 0900, Pre-Procedure (GI) Rate/Dose Verify 01/07/2020 9:22 AM RUBBER TESTER New Bag 01/07/2020 8:27 AM RUBBER TESTER 30 mL/hr 30 mL/hr sodium chloride 0.9% IVPB 0-250 mL 0-250 mL, intravenous, Once, On Sun01/06/20 at 1615, For 1 dose, Prime blood tubing and administer amount needed to clear line (usually 50-100 mL) after transfusion complete. New Bag 01/06/2020 5:10 PM RUBBER TESTER 250 mL documented in this encounter Discontinued Medications Medication Sig Discontinue Reason Start Date End Da te methotrexate 2.5 mg tablet Take 12.5 mg by mouth every 7 days sunday Stop Taking at Discharge 10/30/2018 01/07/2020 documented as of this encounter Active and Recently Administered Medications Times are shown in RUBBER TESTER. Scheduled Medication Order 01/05/2020 01/06/2020 01/07/2020 bisacodyl EC (DULCOLAX EC) tablet 15 mg (COMPLETED) 15 mg, oral, Once, On Sun01/06/20 at 0900, For 1 dose, Do not crush, chew, cut, dissolve, open or otherwise manipulate tablet/capsule., Indications: colon prep 0828 (Given - Provider: Doris Monroy, RN) carvediloL (COREG) tablet 6.25 mg 6.25 mg, oral, 2 times daily with meals (bkfst, dinner), First dose on Sun01/06/20 at 0800, Hold for SBP<105 and/or HR<55 0809 (Given - Provider: Doris Monroy, TAO)1749 (Given - Provider: Doris Monroy RN) 0818 (JAN Hold - Provider: Automatic Transfer Provider - Reason: Patient not available)0819 (JAN Unhold - Provider: Automatic Transfer Provider)0822 (JAN Hold - Provider: Automatic Transfer Provider - Reason: Patient not available)1057 (JAN Unhold - Provider: Automatic Transfer Provider)1208 (Given - Provider: Lupe Cristina RN) ferric gluconate (FERRLECIT) 125 mg of elemental iron in sodium chloride 0.9% 100 mL IVPB (COMPLETED) 125 mg of elemental iron, intravenous, at 110 mL/hr, Administer over 60 Minutes, Once, On Sun01/06/20 at 0800, For 1 dose, Room temperature only 0829 (New Bag - Provider: oDris Monroy, RN) magnesium citrate oral solution 296 mL (COMPLETED) 296 mL, oral, Once, On Sun01/07/20 at 0400, For 1 dose, Pre-Op/Floor (GI), Administer at 4:00 AM on the day of the procedure., Indications: Bowel Evacuation 0421 (Given - Provid er: Marianne Masterson RN) polyethylene glycol (MIRALAX) powder 119 g (COMPLETED) [...] Bowel Evacuation 1609 (Given - Provider: Doris Monroy, TAO)1951 (Given - Provider: Marianne Masterson, TAO) sodium chloride 0.9% flush 0.5-20 mL 0.5-20 mL, intra-catheter, Every 8 hours scheduled, First dose on Sun01/06/20 at 0615, Flush volume based on line type and size. 0550 (Not Given - Provider: Marianne Masterson RN - Reason: IV Infusing)1609 (Given - Provider: Doris Monroy RN)2114 (Not Given - Provider: Marianne Masterson RN - Reason: IV Infusing) 0611 (Not Given - Provider: Marianne Masterson RN - Reason: Other)0818 ([facility] Hold - Provider: Automatic Transfer Provider - Reason: Patient not available)0819 ([facility] Unhold - Provider: Automatic Transfer Provider)0822 ([facility] Hold - Provider: Automatic Transfer Provider - Reason: Patient not available)1057 ([facility] Unhold - Provider: Automatic Transfer Provider)1400 (Due [...] 1500 1521 (New Bag - Provider: Krista Liu RN)1754 (Rate/Dose Change - Provider: Smith Guzman, TAO) 0805 (New Bag - Provider: Doris Monroy, RN)1000 (Stopped - Provider: Doris Monroy RN) sodium chloride 0.9% infusion (CANCELED) 30 mL/hr, intravenous, Continuous, Starting on Sun01/07/20 at 0900, Pre-Procedure (GI) 0827 (New Bag - Provider: Anita Badillo, TAO)0922 (Rate/Dose Verify - Provider: Suzanne Dash MD PhD) PRN Medication Order 01/05/2020 01/06/2020 01/07/2020 ondansetron (ZOFRAN) injection 4 mg(Linked Group 1) 4 mg, intravenous, Administer over 2 Minutes, Every 6 hours PRN, nausea, vomiting, if not tolerating PO, Starting on Sun01/06/20 at 0541, Indications: Nausea and Vomiting 0818 ([facility] Hold - Pro vider: Automatic Transfer Provider - Reason: Patient not available)0819 ([facility] Unhold - Provider: Automatic Transfer Provider)0822 ([facility] Hold - Provider: Automatic Transfer Provider - Reason: Patient not available)1057 ([facility] Unhold - Provider: Automatic Transfer Provider) ondansetron ODT (ZOFRAN-ODT) disintegrating tablet 4 mg(Linked Group 1) 4 mg, oral, Every 6 hours PRN, nausea, vomiting, Starting on Sun01/06/20 at 0541, Indications: Nausea and Vomiting 0818 ([facility] Hold - Pro vider: Automatic Transfer Provider - Reason: Patient not available)0819 ([facility] Unhold - Provider: Automatic Transfer Provider)0822 ([facility] Hold - Provider: Automatic Transfer Provider - Reason: Patient not available)1057 ([facility] Unhold - Provider: Automatic Transfer Provider) sodium chloride 0.9% flush 0.5-20 mL 0.5-20 mL, intra-catheter, As needed, line care, Starting on Sun01/06/20 at 0541, Flush volume based on line type and size. Flush before and after each use. 0818 ([facility] Hold - Pro vider: Automatic Transfer Provider - Reason: Patient not available)0819 ([facility] Unhold - Provider: Automatic Transfer Provider)0822 ([facility] Hold - Provider: Automatic Transfer Provider - Reason: Patient not available)1057 ([facility] Unhold - Provider: Automatic Transfer Provider) Linked [...] Date ondansetron (ZOFRAN) injection 4 mg 1 01/06 ondansetron ODT (ZOFRAN-ODT) disintegrating tablet 4 mg 1 01/06/2020 sodium chloride 0.9% flush 0.5-20 mL 1 12/27 sodium chloride 0.9% IVPB 0-250 mL 1 2019 Diet Count Last Ordered Date First Orde [...] 01/05/2020 documented in this encounter Care Teams Raw Finish Mill Operator Relationship Specialty Start Date End Date Inez Long MD PCP - General 02/23/17 05/15/22 Neil Ag MD PhD [address] [place] [address] Radiation Oncologist Radiation Oncology 12/17/18 [place] [id number] [id number] Referring Physician General Surgery 12/17/18 [place] [id number] [id number] Medical Oncologist/Green Prize Packer Medical Oncology 12/17/18 [place] [id number] [id number] Consulting Physician Gastroenterology 01/07/20 documented as of this encounter
--- OUTSIDE RECORDS SUMMARY | 2024-11-16 13:07 | XMS_ITS | Encounter Summary ---
Author Organization [facility] Medical [facility] Address [address] [place] [address] Care Team Providers Care Real Estate Sales Manager Name Role Phone Francisco Long MD Primary Care Provider Neil Ag MD PhD Unavailable [phone] Ita Vazquez MD Unavailable Caron Mohan MD Unavailable [phone] Reason for Visit * Reason Comments pulmonary embolism f/u Shortness of Breath f/u Encounter Details Date Type Department Care Team (Late st Contact Info) Description 01/01/2020 10:15 AM BLOWN FILM EXTRUSION OPERATOR Office Visit [facility] 2 [facility] [address] [place] [address] Francisco Long MD [address] [place] [address] [address] [place] [address] Multiple subsegmental pulmonary emboli without acute cor pulmonale (Primary Dx); Body mass index (bmi) 29.0-29.9, adult Social History Tobacco Use Types Packs/Day Years [...] on file 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 BLOWN FILM EXTRUSION OPERATOR Gender Identity Not on file Sexual Orientation Not on file documented as of this encounter Last Filed Vital Signs Vital Sign Reading Time Taken Comments Blood Pressure 130/70 01/01/2020 10:13 AM BLOWN FILM EXTRUSION OPERATOR Pulse 60 01/01/2020 10:13 AM BLOWN FILM EXTRUSION OPERATOR Temperature - - Respiratory Rate 24 01/01/2020 10:13 AM BLOWN FILM EXTRUSION OPERATOR Oxygen Saturation - - Inhaled Oxygen Concentration - - Weight 85.3 kg (188 lb) 01/01/2020 10:13 AM BLOWN FILM EXTRUSION OPERATOR Height 170.2 cm (5' 7 ) 01/01/2020 10:13 AM BLOWN FILM EXTRUSION OPERATOR Body Mass Index 29.44 01/01/2020 10:13 AM BLOWN FILM EXTRUSION OPERATOR documented in this encounter Progress Notes * Francisco Long MD - 01/01/2020 10:15 AM CST Subjective/Objective Patient ID: Jolene Cedillo is a 74 y.o. female. Chief Complaint pulmonary embolism (f/u) and Shortness of Breath (f/u) HPI Patient returns today for follow-up of pulmonary embolus she states she feels tired run down but does not have any shortness of breath any longer she states 4 5 years ago when she had knee operation she had a deep venous thrombosis at [facility] where she had the operation no previous history of DVT orblood clots She does have a history of breast cancer and history of uterine cancer but apparently these are both the resolved with no evidence of active disease she is on femara Review of Systems Vitals: 01/01/20 1013 BP: 130/70 BP Location: Right arm Patient Position: Sitting Pulse: 60 Resp: 24 Weight: 85.3 kg (188 lb) Height: 170.2 cm (5' 7 ) Physical Exam She is pleasant no distress a her lungs are clear without rales rhonchi or wheezes the abdomen softnontender ccompaniedAssessment/Plan Diagnoses and all orders for this visit: Multiple subsegmental pulmonary emboli without acute cor pulmonale (Primary) Body mass index (bmi) 29.0-29.9, adult Check laboratory today rule out hypercoagulable state/thrombophilia see back in a month Side effects, risks, interactions reviewed with patient. Indications for testing discussed. Any further problems to contact us. She was told what to look out for and verbalized understanding. The patient was given the opportunity to have all questions answered today and was in agreement with the plan of care. N FILM EXTRUSION OPERATOR documented in this encounter Plan of Treatment Not on file documented as of this encounter Visit Diagnoses Diagnosis Multiple subsegmental pulmonary emboli without acute cor pulmonale (HCC)- Primary Body mass index (bmi) 29.0-29.9, adult documented in this encounter Historical Medications * This list may reflect changes made after this encounter. letrozole (FEMARA) 2.5 mg tablet Take 1 tablet (2.5 mg total) by mouth daily added in this encounter Care Teams Real Estate Sales Manager Relationship Specialty Start Date End Date Francisco Long MD PCP - General 02/23/17 05/15/22 Neil Ag MD PhD [address] [place] [address] Radiation Oncologist Radiation Oncology 12/17/18 [place] [id number] [employer] [place] [address] Referring Physician General Surgery 12/17/18 [place] [address] [employer], [place] [id number] Medical Oncologist/Business Office Associate Medical Oncology 12/17/18 documented as of this encounter
--- OUTSIDE RECORDS SUMMARY | 2024-11-16 13:07 | XMS_ITS | Encounter Summary ---
Author Organization [facility] Facility Care Team Providers Care Wire Cutter Name Role Phone Francisco Long MD Primary Care Provider [phone] Neil Ag MD PhD Unavailable [phone] Ita Vazquez MD Unavailable Caron Mohan MD Unavailable Encounter Details Date Type Department Care Team (Latest Contact Info) Description 01/01/2020 Travel Social History Tobacco Use Types Packs/Day [...] on file 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 OFFICE COORDINATOR Gender Identity Not on file Sexual Orientation Not on file documented as of this encounter Plan of Treatment Not on file documented as of this encounter Visit Diagnoses Not on filedocumented in this encounter Care Teams Wire Cutter Relationship Specialty Start Date End Date Francisco Long MD PCP - General 02/23/17 05/15/22 Neil Ag MD PhD [address] [place] [address] Radiation Oncologist Radiation Oncology 12/17/18 [place] [address] [facility] [address] [place] [address] Referring Physician General Surgery 12/17/18 [place] [address] [address] [facility] [address] [place] [address] Medical Oncologist/Last Repairer Medical Oncology 12/17/18 documented as of this encounter
--- OUTSIDE RECORDS SUMMARY | 2024-11-16 13:07 | XMS_ITS | Encounter Summary ---
Author Organization [facility] Medical Group Address [address] [place] [address] Care Team Providers Care Ore Roaster Name Role Phone Francisco Long MD Primary Care Provider Neil Ag MD PhD Unavailable [phone] Ita Vazquez MD Unavailable Caron Mohan MD Unavailable [phone] Encounter Details Date Type Department Care Team (Late st Contact Info) Description 01/05/2020 Telephone [facility] [address] [facility] [address] [place] [address] Francisco Long MD 2 [facility] [address] [place] [address] Social History Tobacco Use Types [...] file 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 TECHNICAL EDITOR Gender Identity Not on file Sexual Orientation Not on file documented as of this encounter Miscellaneous Notes * Telephone Encounter - Latoya Cotton MA - 01/05/2020 10:36 AM TECHNICAL EDITOR Pt aware NICAL EDITOR * Telephone Encounter - Francisco Long MD - 01/05/2020 10:32 AM CST Okay get to ER right away NICAL EDITOR * Telephone Encounter - Cricket Knowles - 01/05/2020 10:31 AM CST Pt called stating her is getting ready to take her to [facility] ER because she cannot catch her breath. NICAL EDITOR * Telephone Encounter - Latoya Cotton MA - 01/05/2020 8:43 AM TECHNICAL EDITOR jr NICAL EDITOR * Telephone Encounter - Cricket Knowles - 01/05/2020 8:28 AM CST Pt calling in regards to her having trouble breathing for the past month or so that she states Dr. Long is aware of and has been working with her on. She is wanting to ask his if he thinks she should see a heart doctor. She is worried about there being a blockage. Please advise. NICAL EDITOR documented in this encounter Plan of Treatment Not on file documented as of this encounter Visit Diagnoses Not on filedocumented in this encounter Care Teams Ore Roaster Relationship Specialty Start Date End Date Francisco Long MD PCP - General 02/23/17 05/15/22 Neil Ag MD PhD [address] [place] [address] Radiation Oncologist Radiation Oncology 12/17/18 [place] [address] [facility] [address] [facility] [place] [id number] Referring Physician General Surgery 12/17/18 [place] [address] [facility] [address] [place] [id number] Medical Oncologist/Horticultural Nursery Assistant Medical Oncology 12/17/18 documented as of this encounter
--- OUTSIDE RECORDS SUMMARY | 2024-11-16 13:07 | XMS_ITS | Encounter Summary ---
Author Organization [facility] Medical [facility] Address [address] [place] [address] Care Team Providers Care Global Marketing Operations Manager Name Role Phone Francisco Long MD Primary Care Provider [phone] Neil Ag MD PhD Unavailable [phone] Ita estrada MD Unavailable Caron Mohan MD Unavailable Encounter Details Date Type Department Care Team (Late st Contact Info) Description 01/01/2020 Documentation [facility] [address] [facility] [address] [place] [address] Jossue Lee MA Social History Tobacco Use Types Packs/Day [...] on file 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 PUMP SERVICER Gender Identity Not on file Sexual Orientation Not on file documented as of this encounter Progress Notes * Jossue Lee MA - 01/01/2020 10:53 AM CST Written order given to patient for quest dx to be done today SERVICER documented in this encounter Plan of Treatment Not on file documented as of this encounter Visit Diagnoses Not on filedocumented in this encounter Care Teams Global Marketing Operations Manager Relationship Specialty Start Date End Date Francisco Long MD PCP - General 02/23/17 05/15/22 Neil Ag MD PhD [address] [place] [address] Radiation Oncologist Radiation Oncology 12/17/18 [place] [address] [address] [place] [id number] Referring Physician General Surgery 12/17/18 [place] [address] [address] [facility] [address] [place] [id number] Medical Oncologist/Chemistry Laboratory Technician Medical Oncology 12/17/18 documented as of this encounter
--- OUTSIDE RECORDS SUMMARY | 2024-11-16 13:07 | XMS_ITS | Encounter Summary ---
Author Organization [facility] Medical Group Address [address] [place] [address] Care Team Providers Care Reel Stripper Name Role Phone Francisco Long MD Primary Care Provider [phone] Neil Ag MD PhD Unavailable [phone] Ita Vazquez MD Unavailable Caron Mohan MD Unavailable Encounter Details Date Type Department Care Team (Late st Contact Info) Description 01/02/2020 Telephone [facility] 2 [facility] [address] [place] [address] Francisco Long MD 2 [facility] [address] [place] [address] Social History Tobacco Use Types [...] on file 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 STAGECRAFT PROFESSOR Gender Identity Not on file Sexual Orientation Not on file documented as of this encounter Miscellaneous Notes * Telephone Encounter - Thalia Wolff CLT - 01/02/2020 2:21 PM CST Lab order recd ECRAFT PROFESSOR * Telephone Encounter - Anita White MA - 01/02/2020 1:42 PM CST Patient aware Sent to lab appt made ECRAFT PROFESSOR * Telephone Encounter - Anita White MA - 01/02/2020 1:40 PM CST ----- Message from Francisco Long MD sent at 01/02/2020 1:27 PM STAGECRAFT PROFESSOR ----- I talked to the patient on the telephone she states she has always had some chronic anemia over theyears she is taking iron supplementation are levels are high will have her stop her iron as of today have the patient come in next Sunday 1:00 p.m. for a CBC and A1c diagnosis diabetes anemia alsohave a B12 folic acid level drawn along with serum protein electrophoresis diagnosis anemia all this blood work to be done next Sunday 1:00 p.m. ECRAFT PROFESSOR documented in this encounter Plan of Treatment Not on file documented as of this encounter Visit Diagnoses Not on filedocumented in this encounter Care Teams Reel Stripper Relationship Specialty Start Date End Date Francisco Long MD PCP - General 02/23/17 05/15/22 Neil Ag MD PhD [address] [place] [id number] Radiation Oncologist Radiation Oncology 12/17/18 [place] [address] [address] [facility] [address] [place] [id number] Referring Physician General Surgery 12/17/18 [place] [address] [address] [facility] [address] [place] [id number] Medical Oncologist/Resaw Tailer Medical Oncology 12/17/18 documented as of this encounter
--- OUTSIDE RECORDS SUMMARY | 2024-11-16 13:07 | XMS_ITS | Encounter Summary ---
Author Organization [facility] Address [address] [place] [address] Care Team Providers Care Fish Hatchery Man Name Role Phone Francisco Long MD Primary Care Provider Neil Ag MD PhD [facility]available [facility] Unavailable Caron Mohan MD Unavailable Pebbles Felton MD Unavailable [phone] CruzMounika roman RN Unavailable Encounter Details Date Type Department Care Team (Late st Contact Info) Description 01/05/2020 Orders Only [facility] [address] [facility] [facility] [address] [place] [address] Francisco Long MD [address] [place] [address] [address] [place] [address] Anemia, unspecified type (Primary Dx); Controlled diabetes mellitus type 2 with complications, unspecified whether ferry terminal supervisor insulin use ([facility]) Social History Tobacco Use Types Packs/Day Years [...] on file 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 PHOTOGRAPHIC HAND DEVELOPER Gender Identity Not on file Sexual Orientation Not on file COVID-19 Exposure Response Date Recorded In the last month, have you been in contact with someone who was confirmed or suspected to have Coronavirus / COVID-19? No / Unsure 02/17/2020 9:55 AM CDT documented as of this encounter Miscellaneous Notes * Addendum Note - Cierra Burton - 01/05/2020 9:46 AM CSTAddended by: CIERRA BURTON on: 01/03/2021 09:14 AM Modules accepted: Orders OGRAPHIC HAND DEVELOPER * Addendum Note - Cierra Burton - 01/05/2020 9:46 AM CSTAddended by: CIERRA BURTON on: 01/03/2021 09:15 AM Modules accepted: Orders OGRAPHIC HAND DEVELOPER documented in this encounter Plan of Treatment Not on file documented as of this encounter Results * (ABNORMAL) Protein Electrophoresis, With Reflex, Serum (01/03/2021 9:19 AM PHOTOGRAPHIC HAND DEVELOPER) Protein, sr 5.7(L) 6.2 - 8.2 g/dL [facility] ([place]) Comment:Testing performed by : [facility], [address] [place] [address]., [id number] Albumin 3.5 3.2 - 5.0 g/dL [facility] ([place]) Comment:Testing performed by : [facility], [address] [place] [address], [place]., [address] Alpha-1 globulin 0.4 0.2 - 0.4 g/dL [facility] ([place]) Comment:Testing performed by : [facility], [address] [place] [address], [id number] Alpha-2 globulin 0.6 0.5 - 1.0 g/dL [facility] ([place]) Comment:Testing performed by : [facility], [address] [place] [address], [id number] Beta-1 globulin 0.5 0.3 - 0.6 g/dL [facility] ([place]) Comment:Testing performed by : [facility], [address] [place] [address], [id number] Beta-2 globulin 0.2 0.2 - 0.6 g/dL [facility] ([place]) Comment:Testing performed by : [facility], [address] [place] [address], [id number] Gamma globulin 0.5 0.5 - 1.7 g/dL [facility] ([place]) Comment:Testing performed by : [facility], [address] [place] [address], [id number] SPEP interp See Cl Path Rpt [facility] ([place]) Comment:Testing performed by : [facility], [address] [place] [address], [id number] Blood specimen (specimen) 01/03/2021 9:19 AM PHOTOGRAPHIC HAND DEVELOPER 01/03/2021 2:34 PM PHOTOGRAPHIC HAND DEVELOPER Francisco Long MD LAB BLOOD ORDERABLES Final Res ult [facility] ([place]) [address] [facility] Department [place] [address] * Folate (01/03/2021 9:19 AM PHOTOGRAPHIC HAND DEVELOPER) Folic acid 9.3 >=5.0 ng/mL [facility] ([place]) Comment:Testing performed by : [address], [id number] Blood specimen (specimen) 01/03/2021 9:19 AM PHOTOGRAPHIC HAND DEVELOPER 01/03/2021 2:34 PM PHOTOGRAPHIC HAND DEVELOPER Francisco Long MD LAB BLOOD ORDERABLES Final Res ult Performing Organization Address City/[facility]/ZIP Co de Phone Number MEHRAN THOMAS ([place]) [address] [place] [address] * Vitamin B12 (01/03/2021 9:19 AM PHOTOGRAPHIC HAND DEVELOPER) [facility] Vitamin B12 492 230 - 1,250 pg/mL [facility] [place] ([place]) Comment:Testing performed by : [facility], [address] [place] [address], [id number] Blood specimen (specimen) 01/03/2021 9:19 AM PHOTOGRAPHIC HAND DEVELOPER 01/03/2021 2:34 PM PHOTOGRAPHIC HAND DEVELOPER Francisco Long MD LAB BLOOD ORDERABLES Final Res ult Performing Organization Address [facility] de Phone Number MEHRAN THOMAS ([place]) [address] [place] [address] * Hemoglobin A1c (01/03/2021 9:19 AM PHOTOGRAPHIC HAND DEVELOPER) [facility] Hgb A1C 5.2 4.0 - 5.6 % [facility] ([place] Estimated Average Glucose 103 mg/dL [facility] [place] ([place]) Comment: The ADA recommends reporting an estimated Average Glucose (eAG) with all Hemoglobin A1c results using the equation derived from a study of 507 normal and diabetic adults. ??Minority populations were underrepresented and children were not included. ?? (Diabetes Care 31:3163-6923, 2008). ??The eAG is not equivalent to a fasting glucose. Blood specimen (specimen) 01/03/2021 9:19 AM PHOTOGRAPHIC HAND DEVELOPER 01/03/2021 10:17 AM PHOTOGRAPHIC HAND DEVELOPER Francisco Long MD LAB BLOOD ORDERABLES Final Res ult Performing Organization Address [facility]/ZIP Co de Phone Number MEHRAN THOMAS ([place]) 1 [place] [address] * (ABNORMAL) CBC with auto differential (01/03/2021 9:19 AM PHOTOGRAPHIC HAND DEVELOPER) WBC 5.6 3.8 - 9.9 K/cumm CERNER [...] NRBC abs 0.03(H) 0.00 - 0.01 K/cumm [facility] ([place]) Blood specimen (specimen) 01/03/2021 9:19 AM PHOTOGRAPHIC HAND DEVELOPER 01/03/2021 10:17 AM PHOTOGRAPHIC HAND DEVELOPER us Francisco Long MD LAB BLOOD ORDERABLES Final Res ult [facility] ([place]) [address] [facility] Department [place] [address] documented in this encounter Visit Diagnoses Diagnosis Anemia, unspecified type- Primary Controlled diabetes mellitus type 2 with complications, unspecified whether ferry terminal supervisor insulin use (HCC) documented in this encounter Additional Health Concerns Infection Onset Date Last Indicated Resolved Time COVID: Suspected 12/28/2020 12/28/2020 12/29/2020 7:21 AM PHOTOGRAPHIC HAND DEVELOPER Respiratory Infection (TITI), contact + droplet Comment:Automatically added due to negative COVID-19 result. 12/29/2020 12/29/2020 01/12/2021 3:0 6 AM PHOTOGRAPHIC HAND DEVELOPER documented as of this encounter Care Teams Fish Hatchery Man Relationship Specialty Start Date End Date Francisco Long MD PCP - General 02/23/17 05/15/22 Neil Ag MD PhD [address] [place] [address] Radiation Oncologist Radiation Oncology 12/17/18 [place] [address] [address] [facility] [address] [place], [place] [id number] Referring Physician General Surgery 12/17/18 [place] [address] [address] [facility] [address] [place], [place] [id number] Medical Oncologist/Corner Block Cutter Medical Oncology 12/17/18 [place] [address] [address] [facility] [address] [place] [address] Consulting Physician Gastroenterology 01/07/20 Mounika Cruz, TAO [address] [place] [address] [address] [place] [address] Medical Technologist Hematology 11/17/20 11/28/20 documented as of this encounter
--- OUTSIDE RECORDS SUMMARY | 2024-11-16 13:07 | XMS_ITS | Encounter Summary ---
Author Organization [facility] Address [address] [place] [address] Care Team Providers Care Pharmacy Scheduler Name Role Phone Francisco Long MD Primary Care Provider Neil Ag MD PhD Unavailable [phone] Ita Vazquez MD Unavailable Caron Mohan MD Unavailable Encounter Details Date Type Department Care Team (Late st Contact Info) Description 01/01/2020 Orders Only [place] [facility] [address] [facility] [address] [place] [address] Francisco Long MD [address] [place] [address] [address] [place] [address] Social History Tobacco Use Types [...] file 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 POWER GENERATING PLANT OPERATOR Gender Identity Not on file Sexual Orientation Not on file documented as of this encounter Progress Notes * Francisco Long MD - 01/01/2020 11:59 PM CST I talked to the patient on [...] to be done next Sunday 1:00 p.m. R GENERATING PLANT OPERATOR documented in this encounter Plan of Treatment Not on file documented as of this encounter Procedures Procedure Name Priority Date/Time Associated Diagnosis Comments FACTOR V(LEIDEN) MUTATION ANALYSIS W/RFL HR2 MUT Routine 01/01/2020 11:15 AM POWER GENERATING PLANT OPERATOR TEST AUTHORIZATION Routine 01/01/2020 11 :15 AM POWER GENERATING PLANT OPERATOR PROTEIN C AND S ACTIVITY W/REFLEX TO ANTIGEN Routine 01/01/2020 11:15 AM POWER GENERATING PLANT OPERATOR 1911A>G MUTATION Routine 01/01/2020 11:1 5 AM POWER GENERATING PLANT OPERATOR IRON PROFILE W/ IBC Routine 01/01/2020 1 1:15 AM POWER GENERATING PLANT OPERATOR CBC WITH AUTO DIFFERENTIAL Routine 01/01/2020 11:15 AM POWER GENERATING PLANT OPERATOR FERRITIN Routine 01/01/2020 11:15 AM POWER GENERATING PLANT OPERATOR COMPREHENSIVE METABOLIC PANEL Routine 01/01/2020 11:15 AM POWER GENERATING PLANT OPERATOR documented in this encounter Results * 1911A>G MUTATION (01/01/2020 11:15 AM POWER GENERATING PLANT OPERATOR) [facility] Signature 66671k>G mutation analysis SEE NOTE [facility] Comment: 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 This genotype, when combined with the 36413Q>A variant, or in the presence of increased levels of prothrombin, is associated with an increased risk for thrombophilia. This risk is increased further in the presence of oral contraceptive therapy, hormone replacement therapy and . ?? Laboratory results and submitted clinical information reviewed by Sherlyn Garcia, Ph.D., [facility], [facility]. DETAILED ASSAY INFORMATION A recently described variant in the Factor II (FII/Prothrombin) gene, 96144H>G, leads to an increased risk for thrombosis when observed in conjunction with the known 50005 G>A FII variant. One study observed an increased odds ratio (OR) of 5.86 in carriers of both the 55463S>A and 59166O>G variants compared to 3.34 in 51109Z>A/68960C carriers (Br J Haem 2002. 118:610-614). The 65868 A>G variant is detected by polymerase chain reaction (PCR) amplification of a portion of the last intron in the FII gene, single nucleotide primer extension, and detection of fluorescent extension products by automated gel electrophoresis. This analysis evaluates only the specified polymorphism in the FII gene and cannot detect other FII variants, or mutations in other genes, that may similarly affect prothrombin levels. Furthermore, genetic variation and other factors can affect the accuracy of direct mutation testing. Therefore, the results of this testing should always be interpreted in light of the appropriate clinical and familial data. For assistance with the interpretation of these results, please contact your local [employer] genetic counselor or call [phone] ([phone]). This test is performed pursuant to a license agreement with [employer]. This test was developed and its analytical performance characteristics have been determined by [employer] [facility]. It has not been cleared or approved by FDA. This assay has been validated pursuant to the CLIA regulations and is used for clinical purposes. 01/01/2020 11:1 5 AM POWER GENERATING PLANT OPERATOR 01/01/2020 11:19 AM POWER GENERATING PLANT OPERATOR Narrative Resulting Agency Comment Performing Organization Information: ?Site ID: [id number] ?Name: [facility], ?Address: [address] [place] [address] ?Director: Ashley Mir MD,PhD,BEVERLEY us Francisco Long MD LAB GENETIC TESTING Final Resu lt [facility] [place], [place] * TEST AUTHORIZATION (01/01/2020 11:15 AM POWER GENERATING PLANT OPERATOR) Test name 39444V>G MUTATION [facility] [place] TEST CODE: [id number] [facility] [place] CLIENT CONTACT: TIFFANY GE DRAKE [facility] [place] Report Always Message Signature [facility] [place] Comment: The laboratory testing on this patient was verbally requested or confirmed by the ordering physician or his or her authorized shipping services sales representative after contact with an employee of [employer]. Federal regulations require that we maintain on file written authorization for all laboratory testing. ??Accordingly we are asking that the ordering physician or his or her authorized shipping services sales representative sign a copy of this report and promptly return it to the client application support engineer. Signature: Comment [facility] [place] Comment: Fax number: [phone] 01/01/2020 11:1 5 AM POWER GENERATING PLANT OPERATOR 01/01/2020 11:19 AM POWER GENERATING PLANT OPERATOR Narrative Resulting Agency Comment Performing Organization Information: ?Site ID: [place] ?Name: [facility] ?Address: [address] [id number] ?Director: Alex Garcia D.O., MPH us Francisco Long MD LAB BLOOD ORDERABLES Final Res ult [facility] [place] * PROTEIN C AND S ACTIVITY W/REFLEX TO ANTIGEN (01/01/2020 11:15 AM POWER GENERATING PLANT OPERATOR) Acyclcarnitine , interp see note [facility] [place] Comment:Negative for Protein C and Protein S Deficiency. Protein C activity 167 70 - 180 % [facility] Comment: Units: % of normal Protein S, activity 94 60 - 140 % [facility] [place] 01/01/2020 11:1 5 AM POWER GENERATING PLANT OPERATOR 01/01/2020 11:19 AM POWER GENERATING PLANT OPERATOR Narrative Resulting Agency Comment Performing Organization Information: ?Site ID: [facility] ?Name[facility] ?Address: [address] [place] [address] [place], [place] ?Director: Yusuf Powell M.D.,PhD Francisco Long MD LAB BLOOD ORDERABLES Final Res ult [facility] [place], [place] * FACTOR V(LEIDEN) MUTATION ANALYSIS W/RFL HR2 MUT (01/01/2020 11:15 AM POWER GENERATING PLANT OPERATOR) Pathologist [facility] Factor v (leiden) mutation SEE NOTE [facility] Comment:RESULT: FACTOR V LEI DEN (R506Q) VARIANT NOT DETECTED Interpretation SEE NOTE [facility] Comment: INTERPRETATION: This individual is negative (normal) for the Factor V Leiden (R506Q) variant in the Factor V gene. Increased risk of thrombophilia can be caused by a variety of genetic and non-genetic factors not screened for by this assay. ?? Laboratory testing supervised and results monitored by Carla Dash MD, PhD, [facility] [place]. MUTATION ANALYSIS: The Factor V Leiden (R506Q) mutation [NM 363735.2: c.1601G>A (p.R534Q)] in the Factor V gene is one of the most common causes of inherited thrombophilia. This mutation causes resistance to degradation of activated Factor V protein by activated protein C (APC). The Factor V Leiden (R506Q) mutation is detected by amplification of the selected region of Factor V gene by polymerase chain reaction (PCR) and fluorescent probe hybridization to the targeted region, followed by melting curve analysis with a real time PCR system. Although rare, false positive or false negative results may occur. All results should be interpreted in context of clinical findings, relevant history, and other laboratory data. This test was developed and its analytical performance characteristics have been determined by [employer] [facility]. It has not been cleared or approved by FDA. This assay has been validated pursuant to the CLIA regulations and is used for clinical purposes. Health care providers, please contact your local [employer] genetic counselor or call [phone] ([phone]) for assistance with interpretation of these results. 01/01/2020 11:1 5 AM POWER GENERATING PLANT OPERATOR 01/01/2020 11:19 AM POWER GENERATING PLANT OPERATOR Narrative Resulting Agency Comment Performing Organization Information: ?Site ID: ?Name: [employer], ?Address: [id number] [place] [id number] ?Director: Ashley Mir MD,PhD,BEVERLEY Francisco Long MD LAB GENETIC TESTING Final Resu lt [facility] [place], [place] * (ABNORMAL) Comprehensive metabolic panel (01/01/2020 11:15 AM POWER GENERATING PLANT OPERATOR) Glucose 178(H) 65 - 99 mg/dL [facility] [place] Comment: ? Fasting reference interval For someone without known diabetes, a glucose value >125 mg/dL indicates that they may have diabetes and this should be confirmed with a follow-up test. BUN 19 7 - 25 mg/dL [facility] [place] Creatinine 0.78 0.60 - 0.93 mg/dL [facility] [place] Comment: For patients >49 years of age, the reference limit for Creatinine is approximately 13% higher for people identified as -Thai. eGFR NON-AFR. LATVIAN 75 > OR = 60 mL/min/1 .73m2 [facility] [place] EGFR 87 > OR = 60 mL/min/1 .73m2 [facility] [place] BUN/creat ratio NOT APPLICABLE 6 - 22 (calc) [facility] [place] Sodium 140 135 - 146 mmol/L [facility] [place] Potassium, pl 4.2 3.5 - 5.3 mmol/L [facility] [place] Chloride 100 98 - 110 mmol/L [facility] [place] CO2 28 20 - 32 mmol/L [facility] [place] Calcium 9.0 8.6 - 10.4 mg/dL [facility] [place] Protein, sr 6.2 6.1 - 8.1 g/dL [facility] [place] Albumin 4.1 3.6 - 5.1 g/dL [facility] [place] GLOBULIN 2.1 1.9 - 3.7 g/dL (calc) [facility] [place] Alb/glob ratio 2.0 1.0 - 2.5 (calc) [facility] [place] Bilirubin, total 0.4 0.2 - 1.2 mg/dL [facility] [place] Alk phos 72 37 - 153 U/L [facility] [place] AST 19 10 - 35 U/L [facility] [place] ALT (SGPT) 24 6 - 29 U/L [facility] [place] 01/01/2020 11:1 5 AM POWER GENERATING PLANT OPERATOR 01/01/2020 11:19 AM POWER GENERATING PLANT OPERATOR Narrative Resulting Agency Comment Performing Organization Information: ?Site ID: [place] ?Name: [facility] ?Address: [address] [place] [address] [place] [id number] ?Director: Alex Garcia D.O., MPH us Francisco Long MD LAB BLOOD ORDERABLES Final Res ult [facility] [place] * (ABNORMAL) Iron profile w/ IBC (01/01/2020 11:15 AM POWER GENERATING PLANT OPERATOR) Iron 386(H) 45 - 160 mcg/dL [facility] [place] TIBC 458(H) 250 - 450 mcg/dL (calc) [facility] [place] Iron saturation 84(H) 16 - 45 % (calc) [facility] [place] 01/01/2020 11:1 5 AM POWER GENERATING PLANT OPERATOR 01/01/2020 11:19 AM POWER GENERATING PLANT OPERATOR Narrative Resulting Agency Comment Performing Organization Information: ?Site ID: Y[place] ?Name: [facility] ?Address: [facility] [place] [id number] ?Director: Alex Garcia D.O., MPH Francisco Long MD LAB BLOOD ORDERABLES Final Res ult Performing Organization Address [facility] Co de Phone Number LEXI [facility] [place] * (ABNORMAL) Ferritin (01/01/2020 11:15 AM POWER GENERATING PLANT OPERATOR) Pathologist [facility] Ferritin 13(L) 16 - 288 ng/mL [facility] [place] 01/01/2020 11:1 5 AM POWER GENERATING PLANT OPERATOR 01/01/2020 11:19 AM POWER GENERATING PLANT OPERATOR Narrative Resulting Agency Comment Performing Organization Information: ?Site ID: [place] ?Name: [facility] ?Address: [facility] [place] [address] ?Director: Alex Garcia D.O., MPH Francisco Long MD LAB BLOOD ORDERABLES Final Res ult Performing Organization Address [facility] de Phone Number [facility] [place] * (ABNORMAL) CBC with auto differential (01/01/2020 11:15 AM POWER GENERATING PLANT OPERATOR) Pathologist [facility] WBC 6.5 3.8 - 10.8 Thousand/u L [facility] [place] RBC, POC 4.25 3.80 - 5.10 Million/uL [facility] [place] Hgb 9.2(L) 11.7 - 15.5 g/dL [facility] [place] Hct 32.8(L) 35.0 - 45.0 % [facility] [place] MCV 77.2(L) 80.0 - 100.0 fL [facility] [place] MCH 21.6(L) 27.0 - 33.0 pg [facility] [place] MCHC 28.0(L) 32.0 - 36.0 g/dL [facility] [place] Rdw 20.9(H) 11.0 - 15.0 % [facility] [place] Platelets 280 140 - 400 Thousand/u L [facility] [place] MPV 10.2 7.5 - 12.5 fL [facility] [place] Neutrophils, abs 5,376 1,500 - 7,800 cells/uL [facility] [place] Lymphocytes, abs 410(L) 850 - 3,900 cells/uL [facility] [place] Monocyte abs 403 200 - 950 cells/uL [facility] [place] Eosinophils, abs 260 15 - 500 cells/uL [facility] [place] Basophils, abs 52 0 - 200 cells/uL [facility] [place] Neutrophils 82.7 % [facility] [place] Lymphocyte pct 6.3 % [facility] [place] Monocytes 6.2 % [facility] [place] Eosinophils 4.0 % [facility] [place] Basophils 0.8 % [facility] [place] 01/01/2020 11:1 5 AM POWER GENERATING PLANT OPERATOR 01/01/2020 11:19 AM POWER GENERATING PLANT OPERATOR Narrative Resulting Agency Comment Performing Organization Information: ?Site ID: [place] ?Name: [facility] ?Address: [address] [address] [id number] ?Director: Alex Garcia D.O., MPH Francisco Long MD LAB BLOOD ORDERABLES Final Res ult [facility] [place] documented in this encounter Visit Diagnoses Not on filedocumented in this encounter Care Teams Pharmacy Scheduler Relationship Specialty Start Date End Date Francisco Long MD PCP - General 02/23/17 05/15/22 Neil Ag MD PhD [address] [place] [id number] Radiation Oncologist Radiation Oncology 12/17/18 [place] [address] [place] [id number] Referring Physician General Surgery 12/17/18 [place] [address] [address] [place] [id number] Medical Oncologist/Formal Wear Rental Clerk Medical Oncology 12/17/18 documented as of this encounter
--- OUTSIDE RECORDS SUMMARY | 2024-11-16 13:08 | XMS_ITS | Encounter Summary ---
Author Organization [facility] Healthcare Address [address] [place] [address] Care Team Providers Care Base Draw Operator Name Role Phone Inez Long MD Primary Care Provider [phone] Neil Ag MD PhD Unavailable Ita Vazquez MD Unavailable Caron Mohan MD Unavailable Reason for Visit * Reason Comments Thrombophilia Encounter Details Date Type Department Care Team (Latest Contact Info) Description 12/02/2019 12:50 PM REAL ESTATE AGENCY PRINCIPAL - 12/03/2019 4:37 PM REAL ESTATE AGENCY PRINCIPAL Hospital Encounter [facility] IMU [address] [place] [address] nAa Stubbs MD [address] [facility] [place] [address] Jacklyn Spear MD [address] [facility] [place] [address] Renu Martínez Jr., MD [address] [place] [address] [place] [address] PE (pulmonary thromboembolism) (CMS/HCC) (Primary Dx) Discharge Disposition: Discharge to home or self care Social History Tobacco Use Types Packs/Day Years Used Date Smoking Tobacco: Never Smokeless Tobacco: Never Alcohol Use Standard Drinks/Week Comments No 0 (1 standard drink = 0.6 oz pur e alcohol) PHQ-2 Answer Date Recorded PHQ-2 Score 0 07/17/2019 Comments Unknown Sex and Gender Information Value Date Recorded Sex Assigned at Not on file 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 REAL ESTATE AGENCY PRINCIPAL Gender Identity Not on file Sexual Orientation Not on file documented as of this encounter Last Filed Vital Signs Vital Sign Reading Time Taken Comments Blood Pressure 167/79 12/03/2019 11:47 AM REAL ESTATE AGENCY PRINCIPAL Pulse 85 12/03/2019 11:47 AM REAL ESTATE AGENCY PRINCIPAL Temperature 36.5 ??C (97.7 ??F) 12/03/2019 1 1:47 AM REAL ESTATE AGENCY PRINCIPAL Respiratory Rate 16 12/03/2019 11:4 7 AM REAL ESTATE AGENCY PRINCIPAL Oxygen Saturation 94% 12/03/2019 11: 47 AM REAL ESTATE AGENCY PRINCIPAL Inhaled Oxygen Concentration - - Weight 84.3 kg (185 lb 14.4 oz) 12/02/2019 5:00 PM REAL ESTATE AGENCY PRINCIPAL Height 170.2 cm (5' 7 ) 12/02/2019 5:00 PM REAL ESTATE AGENCY PRINCIPAL Body Mass Index 29.12 12/02/2019 5:00 PM REAL ESTATE AGENCY PRINCIPAL documented in this encounter Discharge Diagnoses Diagnosis Other pulmonary embolism without acute cor pulmonale (HCC) - OTHER PULMONARY EMBOLISM WITHOUT ACUTE COR PULMONALE 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) - MALIGNANT NEOPLASM OF UPPER-INNER QUADRANT OF LEFT FEMALE BREAST Rheumatoid arthritis with rheumatoid factor of multiple sites without organ or systems involvement (HCC) - RHEUMATOID ARTHRITIS WITH RHEUMATOID FACTOR OF MULTIPLE SITES WITHOUT ORGAN OR SYSTEMS INVOLVEMENT Hypertensive heart disease with heart failure (CMS/HCC) (HCC) - HYPERTENSIVE HEART DISEASE WITH HEART FAILURE Unspecified hypertensive heart disease with heart failure Chronic diastolic (congestive) heart failure (HCC) - CHRONIC DIASTOLIC (CONGESTIVE) HEART FAILURE Pulmonary hypertension, unspecified (HCC) - PULMONARY HYPERTENSION, UNSPECIFIED Personal history of other venous thrombosis and embolism - PERSONAL HISTORY OF OTHER VENOUS THROMBOSIS AND EMBOLISM Personal history of malignant neoplasm of other parts of uterus - PERSONAL HISTORY OF MALIGNANT NEOPLASM OF OTHER PARTS OF UTERUS Acquired absence of both cervix and uterus - ACQUIRED ABSENCE OF BOTH CERVIX AND UTERUS Estrogen receptor positive status (ER+) - ESTROGEN RECEPTOR POSITIVE STATUS [ER+] Estrogen receptor positive status [ER+] half-way (current) use of aromatase inhibitors - MATERIAL EXPEDITER (CURRENT) USE OF AROMATASE INHIBITORS Personal history of antineoplastic chemotherapy - PERSONAL HISTORY OF ANTINEOPLASTIC CHEMOTHERAPY Presence of artificial knee joint, bilateral - PRESENCE OF ARTIFICIAL KNEE JOINT, BILATERAL Allergy status to narcotic agent status - ALLERGY STATUS TO NARCOTIC AGENT STATUS Allergy status to other drugs, medicaments and biological substances status - ALLERGY STATUS TO OTHER DRUGS, MEDICAMENTS AND BIOLOGICAL SUBSTANCES STATUS Other intermediate project manager (current) drug therapy - OTHER MCC (CURRENT) DRUG THERAPY documented in this encounter Discharge Summaries * Renu Martínez Jr., MD - 12/03/2019 2:06 PM CST [place], [place] Hospitalist Discharge Summary Patient Name: Jolene Gordon Patient : 1945 Room/Bed: [id number] Admission Date/Time: 12/02/2019 12:50 PM Discharge date: 12/03/2019 Admitting Physician: Jacklyn Spear MD Discharge Physician: Renu Martínez Jr., MD Consults: Discharge Diagnoses: Principal Problem: Bilateral pulmonary embolism (CMS/HCC) Active Problems: Essential hypertension 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 rheumatoid factor (CMS/HCC) Malignant neoplasm of uterus (CMS/HCC) Malignant neoplasm of upper-inner quadrant of left breast in female, estrogen receptor positive (CMS/HCC) Hospital Course: For full details of presentation including detailed history, past medical, surgical, social, family history and detailed ROS, as well as detailed exam and labs at time of presentation, please see the History and Physical. Bilateral pulmonary embolism (CMS/HCC) Cause shortness of breath cough, seen on chest CT today. Therapeutic Lovenox started in ED, switched to Eliquis for outpatient therapy. Moderate pulmonary hypertension seen on TTE. Cause unclear at this point, chest CT showed a nodular density in the left breast and recommended follow-up mammogram, however patient had a normal mammogram 3 weeks ago from her log preparer onc physician Petra (results in Care Everywhere). Will discharge with Eliquis. Patient instructed to call PCP's office when she gets home to arrange for follow-up as soon as possible. Chronic diastolic heart failure Grade 1 diastolic dysfunction seen on TTE. Already on an ARB, will start low dose Coreg as well. Issues to be addressed with Primary Care or Other Outpatient Physician (Unresulted Labs, Repeat Testing, Medication Adjustments, etc) Instructed to follow-up with her PCP as soon as possible. Discharge Exam: Vitals: 12/03/19 0400 12/03/19 0600 12/03/19 0750 12/03/19 1147 BP: 154/76 167/79 BP Location: Right arm Right arm Patient Position: Lying Lying Pulse: 84 86 88 85 Resp: 16 16 Temp: 36.4 ??C (97.5 ??F) 36.5 ??C (97.7 ??F) TempSrc: Temporal Temporal SpO2: 93% 94% Weight: Height: Gen: awake, no acute distress, pleasant and cooperative, resting comfortably in bed Neuro: no focal deficits, CN II-XII grossly intact Eyes: extraocular movement intact, sclerae anicteric Neck: supple, trachea midline CV: regular rate and rhythm; 2/6 systolic murmur Pulm: clear to auscultation bilaterally; no wheezes, rales, or rhonchi GI: soft, non-tender, non-distended, normal bowel sounds MSK: no cyanosis or clubbing Psych: normal mood and affect Labs: (last 48 hours): Recent Results (from the past 48 hour(s)) CBC with auto differential Collection Time: 12/01/19 3:35 PM Result Value Ref Range WBC 9.3 3.8 - 9.9 K/cumm Hgb 10.5 (L) 11.9 - 15.5 g/dL Hct 35.4 (L) 35.6 - 45.5 % Plt 273 150 - 400 K/cumm MPV 10.1 9.1 - 12.3 fL RBC 4.65 3.90 - 5.20 M/cumm MCV 76.1 (L) 81.3 - 96.4 fL MCH 22.6 (L) 27.1 - 33.3 pg MCHC 29.7 (L) 32.3 - 35.7 g/dL RDW CV 23.7 (H) 11.1 - 14.9 % RDW SD 61.8 (H) 35.7 - 48.1 fL NRBC abs 0.00 0.00 - 0.01 K/cumm Comprehensive metabolic panel Collection Time: 12/01/19 3:35 PM Result Value Ref Range Sodium 139 135 - 145 mmol/L Potassium, pl 3.6 3.3 - 4.9 mmol/L Chloride 100 97 - 110 mmol/L CO2 25 22 - 32 mmol/L Anion gap 14 2 - 15 mmol/L BUN 16 8 - 25 mg/dL Creatinine 0.78 0.60 - 1.10 mg/dL Glucose 137 70 - 199 mg/dL Calcium 9.5 8.5 - 10.3 mg/dL Bilirubin, total 0.3 0.1 - 1.2 mg/dL Protein, pl 7.1 6.5 - 8.5 g/dL Albumin 4.5 3.5 - 5.0 g/dL Alk phos 79 40 - 130 Units/L ALT 44 7 - 45 Units/L AST 37 10 - 45 Units/L Pro B-type natriuretic peptide Collection Time: 12/01/19 3:35 PM Result Value Ref Range NT-proBNP 237 <=300 pg/mL Erythrocyte sedimentation rate Collection Time: 12/01/19 3:35 PM Result Value Ref Range Erythrocyte sedimentation rate 10 1 - 30 mm/hr Differential, auto Collection Time: 12/01/19 3:35 PM Result Value Ref Range Neutrophil abs 7.6 (H) 1.7 - 6.5 K/cumm Imm gran abs 0.0 0.0 - 0.1 K/cumm Lymphocyte abs 0.7 (L) 0.8 - 3.3 K/cumm Monocyte abs 0.6 0.2 - 0.8 K/cumm Eosinophil abs 0.3 0.0 - 0.5 K/cumm Basophil abs 0.0 0.0 - 0.1 K/cumm Neutrophil pct 81.9 % Imm gran pct 0.5 % Lymphocyte pct 7.5 % Monocyte pct 6.7 % Eosinophil pct 2.9 % Basophil pct 0.5 % eGFR Collection Time: 12/01/19 3:35 PM Result Value Ref Range GFR 76 mL/min/1.73 m2 Blood gas, arterial Collection Time: 12/01/19 3:45 PM Result Value Ref Range pH, Art POC 7.48 (H) 7.35 - 7.45 PCO2, Arterial 34 (L) 35 - 45 mmHg PO2, Arterial 68 (L) 83 - 108 mmHg HCO3 Art (Calculated) 25 20 - 30 mmol/L BE, art 2 mmol/L O2 Sat Art (Measured) 94 90 - 95 % aPTT Collection Time: 12/02/19 1:24 PM Result Value Ref Range aPTT 25 25 - 37 sec CBC with auto differential Collection Time: 12/02/19 1:24 PM Result Value Ref Range WBC 8.8 3.8 - 9.9 K/cumm Hgb 11.1 (L) 11.9 - 15.5 g/dL Hct 36.9 35.6 - 45.5 % Plt 267 150 - 400 K/cumm MPV 10.5 9.1 - 12.3 fL RBC 4.87 3.90 - 5.20 M/cumm MCV 75.8 (L) 81.3 - 96.4 fL MCH 22.8 (L) 27.1 - 33.3 pg MCHC 30.1 (L) 32.3 - 35.7 g/dL RDW CV 24.1 (H) 11.1 - 14.9 % RDW SD 63.5 (H) 35.7 - 48.1 fL NRBC abs 0.00 0.00 - 0.01 K/cumm Comprehensive metabolic panel Collection Time: 12/02/19 1:24 PM Result Value Ref Range Sodium 134 (L) 135 - 145 mmol/L Potassium, pl 3.7 3.3 - 4.9 mmol/L Chloride 96 (L) 97 - 110 mmol/L CO2 25 22 - 32 mmol/L Anion gap 13 2 - 15 mmol/L BUN 17 8 - 25 mg/dL Creatinine 0.68 0.60 - 1.10 mg/dL Glucose 124 70 - 199 mg/dL Calcium 9.9 8.5 - 10.3 mg/dL Bilirubin, total 0.4 0.1 - 1.2 mg/dL Protein, pl 7.6 6.5 - 8.5 g/dL Albumin 4.5 3.5 - 5.0 g/dL Alk phos 85 40 - 130 Units/L ALT 41 7 - 45 Units/L AST 37 10 - 45 Units/L Magnesium Collection Time: 12/02/19 1:24 PM Result Value Ref Range Magnesium 2.0 1.6 - 2.4 mg/dL Pro B-type natriuretic peptide Collection Time: 12/02/19 1:24 PM Result Value Ref Range NT-proBNP 193 <=300 pg/mL Protime-INR Collection Time: 12/02/19 1:24 PM Result Value Ref Range PT 13.2 (H) 9.5 - 13.0 sec INR 1.2 0.9 - 1.2 Troponin T Collection Time: 12/02/19 1:24 PM Result Value Ref Range Troponin T <0.01 0.00 - 0.01 ng/mL Differential, auto Collection Time: 12/02/19 1:24 PM Result Value Ref Range Neutrophil abs 7.5 (H) 1.7 - 6.5 K/cumm Imm gran abs 0.0 0.0 - 0.1 K/cumm Lymphocyte abs 0.5 (L) 0.8 - 3.3 K/cumm Monocyte abs 0.5 0.2 - 0.8 K/cumm Eosinophil abs 0.1 0.0 - 0.5 K/cumm Basophil abs 0.0 0.0 - 0.1 K/cumm Neutrophil pct 85.4 % Imm gran pct 0.2 % Lymphocyte pct 6.2 % Monocyte pct 6.2 % Eosinophil pct 1.5 % Basophil pct 0.5 % eGFR Collection Time: 12/02/19 1:24 PM Result Value Ref Range GFR 87 mL/min/1.73 m2 CBC without differential Collection Time: 12/03/19 4:38 AM Result Value Ref Range WBC 7.9 3.8 - 9.9 K/cumm Hgb 9.2 (L) 11.9 - 15.5 g/dL Hct 31.1 (L) 35.6 - 45.5 % Plt 238 150 - 400 K/cumm MPV 9.5 9.1 - 12.3 fL RBC 4.13 3.90 - 5.20 M/cumm MCV 75.3 (L) 81.3 - 96.4 fL MCH 22.3 (L) 27.1 - 33.3 pg MCHC 29.6 (L) 32.3 - 35.7 g/dL RDW CV 23.4 (H) 11.1 - 14.9 % RDW SD 62.4 (H) 35.7 - 48.1 fL NRBC abs 0.00 0.00 - 0.01 K/cumm Basic metabolic panel Collection Time: 12/03/19 4:38 AM Result Value Ref Range Sodium 136 135 - 145 mmol/L Potassium, pl 3.8 3.3 - 4.9 mmol/L Chloride 100 97 - 110 mmol/L CO2 25 22 - 32 mmol/L Anion gap 12 2 - 15 mmol/L BUN 19 8 - 25 mg/dL Creatinine 0.69 0.60 - 1.10 mg/dL Glucose 212 (H) 70 - 199 mg/dL Calcium 8.5 8.5 - 10.3 mg/dL Magnesium Collection Time: 12/03/19 4:38 AM Result Value Ref Range Magnesium 2.0 1.6 - 2.4 mg/dL Phosphorus Collection Time: 12/03/19 4:38 AM Result Value Ref Range Phosphorus, pl 3.8 2.3 - 4.5 mg/dL eGFR Collection Time: 12/03/19 4:38 AM Result Value Ref Range GFR 87 mL/min/1.73 m2 Radiology: Xr Chest Pa Lateral 2 Vw Result Date: 12/01/2019 Narrative: EXAMINATION: XR CHEST PA LATERAL 2 VIEWS ORDERING HEALTHCARE PROVIDER: INEZ LONG HISTORY: cough Patient states having a cough for 2 1/2 weeks. Extreme SOB. HX lymph node removed due to cancer, uterus removed due to cancer. Both done in 2018. TECHNIQUE: PA and lateral radiographs of the chest. COMPARISON: None available FINDINGS: HEART/MEDIASTINUM: The cardiomediastinal silhouette and pulmonary vasculature are normal. LUNGS/PLEURA: There is no airspace consolidation or pleural effusion. HARDWARE/LINES/TUBES: None. BONES: Mild thoracic spondylosis. OTHER: Hiatal hernia. Impression: No radiographic evidence of acute cardiopulmonary disease. Electronically signed by: Saqib Potter M.D. Xr Chest 1 View Result Date: 12/02/2019 Narrative: EXAMINATION: XR CHEST 1 VIEW ORDERING HEALTHCARE PROVIDER: ANA STUBBS HISTORY: chest pain Pt came in for out pt chest ct this morning. Was told she has bi-lat lung clots and was sent to the ER. Hx of left breast lumpectomy. Non smoker. TECHNIQUE: Portable upright AP radiograph of the chest. COMPARISON: Chest radiographs 12/01/2019 FINDINGS: HEART/MEDIASTINUM: The cardiomediastinal silhouette and pulmonary vasculature are normal. LUNGS/PLEURA: There is no airspace consolidation or pleural effusion. HARDWARE/LINES/TUBES: None. 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 Mild thoracic spondylosis. OTHER: Hiatal hernia. Impression: No acute findings. Electronically signed by: Saqib Potter M.D. Transthoracic Echo Complete W Doppler/cf Result Date: 12/03/2019 Narrative: [address] [place] [address] Echocardiogram Report Patient Name: JOLENE GORDON : 1945 Study Date: 12/03/2019 8:17:56 AM Gender: F Tech: KAYLA Location: [place] [address] Ref.Provider: RENU MARTÍNEZ Height(Cm): 170 BSA: 2 Weight(Kg): 84.8 Quality: Adequate Order Provider: Demarco Procedures: Echocardiographic Report: Transthoracic echocardiogram with complete 2D, M-Mode, and color Doppler examination. Indications: Pulmonary embolism. Measurements: 2D/M Mode Doppler Measurement Value Normal Range Measurement Value Normal Range EF Teich MM 87.3 [ 55.0 - 70.0 ] percent ANTHONY Vmax 2.33 [ 2.00- 4.00 ] cm2 LVIDd MM 3.16 [ 3.90 - 5.30 ] cm AV Mean PG 7 [ 2 - 4 ] mmHg LVIDs MM 1.40 [ 2.30 - 3.90 ] cm AV Peak Emmanuel 1.60 [ 1.00 - 1.70 ] m/s LVPWd MM 1.01 [ 0.60 - 1.00 ] cm AV VTI 35.65 cm IVSd MM 1.20 [ 0.60 - 0.90 ] cm LVOT Diam 1.85 [ 1.70 - 2.10 ] cm LA Dimension MM 4.00 [ 2.70 - 3.80 ] cm LVOT Peak Emmanuel 1.40 [ 0.70 - 1.10 ] m/s AoR Diam MM 2.51 [ 2.60 - 3.70 ] cm LVOT VTI 31.81 [ 20.00 - 30.00 ] cm ACS MM 1.85 cm MV E Peak Emmanuel 0.99 [ 0.60 - 1.30 ] m/s MV A Peak Emmanuel 0.90 [ 1.00 - 1.20 ] m/s MV Mean PG 1 [ <= 5 ] mmHg MV PHT 74 [ 20 - 100 ] msec MVA 3.00 MV Decel Time 254 [ 104 - 258] msec PV Peak Emmanuel 0.97 [ 0.40 - 0.80 ] m/s TR Peak Emmanuel 2.84 [ 1.00 - 2.80 ] m/s TR Peak PG 32 mmHgRVSP 42.00 [ 10.00 - 36.00 ] mmHg E' 0.06 E/E' 15.75 PA Pressure 32.00 [ 10.00 - 36.00 ] mmHg Findings: Atrial Septum: Normal atrial septum. Left Ventricle: Mild concentric left ventricular hypertrophy. No left ventricular outflow tract gradient at rest. Hyperdynamic left ventricular function. No focal wall motion abnormalities. Impaired diastolic relaxation Grade I. Ejection fraction is visuallyestimated at 75 %. Left Atrium: The left atrium is normal in size. Right Ventricle: Normal right ventricular size. Normal right ventricular systolic function. Right Atrium: The right atrium is normalin size. Aortic Valve: Normal structure of the aortic valve. Mitral Valve: Moderate mitral annular c alcification. Mild mitral valve regurgitation. Pulmonic Valve: Normal structure of the pulmonic valve. Tricuspid Valve: Moderate pulmonary hypertension based on right ventricular systolic pressure. Estimated peak RVSP is 50 mmHg. Mild tricuspid regurgitation. Pericardium: Normal pericardium with nosignificant pericardial effusion. Aorta: Normal aortic root. Sinus of Valsalva is normal. Aortic arch is normal. Descending aorta is normal. IVC: Normal size and normal respiratory collapse consistent with normal right atrial pressure (<5 mmHg). Pulmonary Artery: Normal pulmonary artery size. Conclusions: Hyperdynamic left ventricular function.Mild concentric left ventricular hypertrophy. Abnormal LV outflow tract contour but No left ventricular outflow tract gradient at rest. No focal wall motion abnormalities. Impaired diastolic relaxation Grade I. Ejection fraction is visually estimatedat 75 %. Moderate mitral annular calcification. Mild mitral valve regurgitation. Moderate pulmonaryhypertension based on right ventricular systolic pressure. Estimated peak RVSP is 50 mmHg. Mild tricuspid regurgitation. Electronically Signed By: Reeys Unger MD 2019-12-03 13:04:[address]Y PRINCIPAL [address] Chest Pe W Contrast Result Date: 12/02/2019 Narrative: EXAMINATION: CT CHEST PE W CONTRAST ORDERING HEALTHCARE PROVIDER: INEZ LONG HISTORY: PE suspected, high pretest prob. Cough for 3 weeks, sob started 1 week ago, history of left lumpectomy COMPARISON: None available TECHNIQUE: CT chest by PE protocol with the uneventful intravenous ad ministration of 125 mL Optiray 350. 3D volumetric MIP was reviewed. Automated exposure control was used as a dose optimization technique for this examination. FINDINGS: There are bilateral pulmonary emboli seen in all lung lobes. Moderate clot burden with ventricular ratio at the upper limits of normal at 0.9. There is no pulmonary infarct. I could not reach the ordering provider by telephone, sothe patient was sent to the emergency department and I notified the ER physician. The heart is normal in size. There is no pericardial effusion. There is a large sliding-type esophageal hiatal hernia. No mediastinal or hilar lymph node enlargement is seen by size criteria. A nodular density in the left breast would be better evaluated mammographically. There is mild diffuse thickening of the adrenal glands. There are transverse colonic diverticula. There is thoracic spondylosis with flowing osteophytes at multiple contiguous levels in a pattern suggestive of diffuse idiopathic skeletal hyperostosis (DISH). Critical result message with acuity critical has been communicated to ordering provider via the [employer] Critical Result tracking system. Status of follow up communication is recorded in [employer]. Impression: 1. Bilateral pulmonary embolus with moderate clot burden. Borderline right heart strain. No pulmonary infarct. 2. Additional findings as above. Electronically signed by: Saqib Potter M.D. Medications: Your medication list START taking these medications Instructions Last Dose Given Next Dose Due apixaban 5 mg tablet Commonly known as: ELIQUIS Take 2 tablets (10 mg total) by mouth 2 (two) times a day for 12 doses apixaban 5 mg tablet Commonly known as: ELIQUIS Start taking on: December 09, 2019 Take 1 tablet (5 mg total) by mouth 2 (two) times a day apixaban 5 mg tablet Commonly known as: ELIQUIS Start taking on: January 08, 2020 Take 1 tablet (5 mg total) by mouth 2 (two) times a day carvedilol 6.25 mg tablet Commonly known as: COREG Take 1 tablet (6.25 mg total) by mouth 2 (two) times a day with meals carvedilol 6.25 mg tablet Commonly known as: COREG Take 1 tablet (6.25 mg total) by mouth 2 (two) times a day with meals CONTINUE taking these medications Instructions Last Dose Given Next Dose Due diphenhydrAMINE-acetaminophen 25-500 mg tablet Commonly known as: TYLENOL PM iron,carbonyl-vitamin C 65 mg iron- 125 mg tablet,delayed release (DR/EC) letrozole 2.5 mg tablet Commonly known as: FEMARA Take 1 tablet (2.5 mg total) by mouth daily. losartan-hydroCHLOROthiazide 100-12.5 mg per tablet Commonly known as: HYZAAR TAKE 1 TABLET BY MOUTH DAILY methotrexate 2.5 mg tablet Where to Get Your Medications These medications were sent to [facility] [place], [place] - [address] [facility] [id number] [facility] [id number] [facility] [id number] ?? apixaban 5 mg tablet ?? apixaban 5 mg tablet ?? carvedilol 6.25 mg tablet You can get these medications from any pharmacy Bring a paper prescription for each of these medications ?? apixaban 5 mg tablet ?? carvedilol 6.25 mg tablet Patient Instructions: Activity: activity as tolerated Diet: regular diet Disposition: home Follow-up Contact Information for Follow-ups primary care provider Please call to arrange follow-up as soon as possible. Next Steps: Follow up Questions: Primary Care Provider Name: Dr. Inez Long Instructions for follow-up (appointment date and time): Please call to arrange follow-up as soon aspossible. Inez Long MD Specialty: Internal Medicine Relationship: PCP - General [address] [place] [address] [address] [facility] [id number] Next Steps: Follow up Inez Long MD Specialty: Internal Medicine Relationship: PCP - [facility] Attributed PCP [address] [facility] [address] [facility] [id number] Next Steps: Follow up Total time spent on day of discharge 25 minutes Signed: Renu Martínez Jr., MD Internal Medicine - Hospitalist [facility] - Adult Hospitalist Service 12/03/2019 2:06 PM Cc: Inez Long MD ESTATE AGENCY PRINCIPAL documented in this encounter Discharge Instructions * Discharge Instructions* Mounika Patten RN - 12/03/2019 2:58 PM REAL ESTATE AGENCY PRINCIPAL Images from the original note were not included. Pulmonary Embolism WHAT YOU NEED TO KNOW: A pulmonary embolism (PE) is the sudden blockage of a blood vessel in the lungs by an embolus. An embolus is a small piece of blood clot, fat, air, or tumor cells. The embolus cuts off the blood supply to your lungs. A pulmonary embolism can become life-threatening. DISCHARGE INSTRUCTIONS: Call 911 for any of the following: ?? You feel lightheaded, short of breath, and have chest pain. ?? You cough up blood. ?? You have a seizure. ?? You have slurred speech, increased sleepiness, or problems seeing, talking, or thinking. ?? You have weakness or cannot move your arm or leg on one side of your body. Seek care immediately if: ?? You feel faint. ?? You have a severe headache. ?? Your heart is beating faster than normal. Contact your healthcare provider if: ?? The skin on any part of your legs or hips turns purple. ?? Your gums or nose bleed. ?? You see blood in your urine or bowel movements. ?? Your bowel movements are black or darker than normal. ?? You have questions or concerns about your condition or care. Medicines: ?? Blood thinners help treat the PE and prevent new clots from forming. Examples of blood thinners include heparin, rivaroxaban, apixiban, and warfarin. The following are general safety guidelines tofollow while you are taking a blood thinner: ?? Watch for bleeding and bruising. Watch for bleeding from your gums or nose. Watch for blood in your urine and bowel movements. Use a soft washcloth on your skin, and a soft toothbrush to brush your teeth. This can keep your skin and gums from bleeding. If you shave, use an electric shaver. Do not play contact sports. ?? Tell your dentist and other healthcare providers that you take a blood thinner. Wear a bracelet or necklace that says you take this medicine. ?? Do not start or stop any medicines unless your healthcare provider tells you to. Many medicines cannot be used with blood thinners. ?? Tell your healthcare provider right away if you forget to take the blood thinner , or if you take too much. ?? Warfarin is a blood thinner that you may need to take. The following are additional things you should be aware of if you take warfarin: ?? Foods and medicines can affect the amount of warfarin in your blood. Do not make major changes to your diet. Warfarin works best when you eat about the same amount of vitamin K every day. Vitamin K is found in green leafy vegetables and certain other foods. Ask for more information about what toeat or not to eat. ?? You will need to see your healthcare provider for follow-up visits. You will need regular blood tests to decide how much warfarin you need. ?? Take your medicine as directed. Contact your healthcare provider if you think your medicine is not helping or if you have side effects. Tell him or her if you are allergic to any medicine. Keep a list of the medicines, vitamins, and herbs you take. Include the amounts, and when and why you take them. Bring the list or the pill bottles to follow-up visits. Carry your medicine list with you in case of an emergency. Prevent another PE: ?? Wear pressure stockings. The stockings are tight and put pressure on your legs. This improves blood flow and helps prevent clots. Wear the stockings during the day. Do not wear them when you sleep. ?? Exercise regularly. Ask about the best exercise plan for you. When you travel by car or work at a desk, take breaks to stand up and move around as much as possible. Rotate your feet in circles often if you sit for a long period of time. ?? Maintain a healthy weight. Ask your healthcare provider how much you should weigh. Ask him to help you create a weight loss plan if you are overweight. ?? Do not smoke. Nicotine and other chemicals in cigarettes and cigars can damage blood vessels andincrease your risk for another PE. Ask your healthcare provider for information if you currently smoke and need help to quit. E- cigarettes or smokeless tobacco still contain nicotine. Talk to your healthcare provider before you use these products. Follow up with your healthcare provider as directed: Write down your questions so you remember to ask them during your visits. ?? 2017 [employer] Information is for End User's use only and may not be sold, redistributed or otherwise used for commercial purposes. All illustrations and images included in CareNotes?? are the copyrighted property of [employer] or [employer]. The above information is an educational sign language interpreter only. It is not intended as medical advice for individual conditions or treatments. Talk to your doctor, nurse or pharmacist before following any medical regimen to see if it is safe and effective for you. ESTATE AGENCY PRINCIPAL * Attachments The following attachments cannot be sent through Care Everywhere. * Carvedilol (By mouth) (Martiniquais) * Apixaban (By mouth) (Martiniquais) documented in this encounter Medications at Time of Discharge letrozole (FEMARA) 2.5 mg tablet Take 1 tablet (2.5 mg total) by mouth daily. 30 tablet 11 12/17/2018 0 apixaban (ELIQUIS) 5 mg tabletIndication s:deep venous thrombosis Take 2 tablets (10 mg total) by mouth 2 (two) times a day for 12 doses 24 tablet 12/03/2019 0 apixaban (ELIQUIS) 5 mg tabletIndication s:deep venous thrombosis Take 1 tablet (5 mg total) by mouth 2 (two) times a day 60 tablet 12/09/2019 0 carvedilol (COREG) 6.25 mg tablet Take 1 tablet (6.25 mg total) by mouth 2 (two) times a day with meals 60 tablet 10 12/03/2019 0 diphenhydrAMINE- acetaminophen (TYLENOL PM) 25-500 mg tablet Take 1 tablet by mouth nightly as needed for sleep 0 iron,carbonyl-vi tamin C 65 mg iron- 125 mg tablet,delayed release (DR/EC) Take by mouth daily 0 losartan-hydroCH LOROthiazide (HYZAAR) 100-12.5 mg per tablet TAKE 1 TABLET BY MOUTH DAILY 90 tablet 3 09/30/2019 0 methotrexate 2.5 mg tablet Take 12.5 mg by mouth every 7 days sunday 3 10/30/2018 0 documented as of this encounter Ordered Prescriptions Prescription Sig Dispense Quantity Refills Last Filled Start Date End Date carvedilol (COREG) 6.25 mg tablet Take 1 tablet (6.25 mg total) by mouth 2 (two) times a day with meals 60 tablet 10 12/03/2019 0 apixaban (ELIQUIS) 5 mg tabletIndications: Venous Thrombosis Take 1 tablet (5 mg total) by mouth 2 (two) times a day 60 tablet 10 01/08/2020 0 carvedilol (COREG) 6.25 mg tablet Take 1 tablet (6.25 mg total) by mouth 2 (two) times a day with meals 60 tablet 12/03/2019 0 apixaban (ELIQUIS) 5 mg tabletIndications: deep venous thrombosis Take 1 tablet (5 mg total) by mouth 2 (two) times a day 60 tablet 12/09/2019 0 apixaban (ELIQUIS) 5 mg tabletIndications: deep venous thrombosis Take 2 tablets (10 mg total) by mouth 2 (two) times a day for 12 doses 24 tablet 12/03/2019 0 documented in this encounter Discharge Disposition Disposition Code Departure Means Destination Discharge to home or self care documented in this encounter Progress Notes * Inez Long MD - 12/03/2019 4:37 PM CST See me this week Sunday or Sunday ESTATE AGENCY PRINCIPAL * Jami Pettit MA - 12/03/2019 4:37 PM CST LM to call office so appt can be scheduled ESTATE AGENCY PRINCIPAL * Lauren Curiel RN - 12/03/2019 2:20 PM CST 12/03/19 1420 [employer] CAMERON letter given? Yes CAMERON letter given on: 12/03/19 CAMERON Letter Given at: [id number] ESTATE AGENCY PRINCIPAL * Caesar Vega [facility] - 12/03/2019 2:06 PM CST Cinthya, pharmacy tech customer service, counseled the patient for apixaban and gave informational materials. Patient was not previously on medication prior to admission. Patient had question about crystal. An information handout was offered to the patient. Cinthya Gomez, Pharm.D. Candidate ESTATE AGENCY PRINCIPAL * Bayron Jensen RN - 12/02/2019 3:26 PM CST 12/02/19 1455 Information Information Obtained From Patient Referral Data Referral Source Self referral Referral Reason Discharge Planning Prior to Admission Primary Caregiver Self Support System Spouse/Significant Other Support system contact info (name, phone, availablity) (pt lives in her home with her , uses no aids, handles her ADL's without diff, goal is to return home and there is no known barriers to discharge noted at this time. ) Home Care Services No Durable Medical Equipment None Living Arrangements Spouse/significant other Type of Residence Private residence Steps in home? Yes, Inside home Number of steps inside: 2 steps Financial Resource Income Prison/Pension Payor Source Medicare Potential Discharge Needs Anticipated discharge level of care Private residence Pt/Family agrees with Anticipated Level of Care Unknown Patient expects to be discharged to: Private residence Dialysis No Behavioral Health Services No ESTATE AGENCY PRINCIPAL * Bayron Jensen RN - 12/02/2019 3:24 PM CST 12/02/19 1523 Basic Mobility - 6 Click How much difficulty does the patient have: Turning over in bed 4 How much difficulty does the patient currently have: Sitting down and standing up from a chair witharms? 4 How much difficulty does the patient have: Moving from lying on back to sitting on the side of the bed? 4 How much difficulty does the patient have: Moving to and from a bed to a chair including wheelchair? 4 How much help does the patient currently need: Walk in hospital room? 4 How much help from another person does the patient currently need: Climbing 3-5 steps with a railing? 4 Total Score (range 6-24) 24 ESTATE AGENCY PRINCIPAL documented in this encounter H&P Notes * Renu Martínez Jr., MD - 12/02/2019 6:57 PM CST [facility] Adult Hospitalist Service History and Physical Patient Name: Jolene Gordon Patient : 1945 Age/Sex: 73 y.o. female Room/Bed: [place] [id number] Admission Date/Time: 12/02/2019 12:50 PM Date: 12/02/2019 Time: 6:57 PM Primary Care Physician: Inez Long MD PCP Office Location: [address] [place] [address] PCP Chief Complaint: shortness of breath HPI: Jolene Gordon is a 73 y.o. y/o female with PMH of DVT after knee replacement (successfully treated with Eliquis), urine cancer status post hysterectomy, breast cancer status post lumpectomy and adjuvant chemotherapy (no recurrence of either malignancy), hypertension, hyperlipidemia, and arthritis who presented to the ED with 3 weeks of cough and progressive shortness of breath. The cough wasworse when it initially started, but has lessened quite a bit to the point that it is now barely noticeable. The shortness of breath and dyspnea on exertion did not get significant until 1 week ago. This was initially worked up by her PCP, Dr. Long, who ordered outpatient CT today which found bilateral PEs. He called and instructed her to present immediately to the ER after hearing of these findings. She denies chest pain and palpitations. Review of Systems Constitutional: Negative for chills and fever. HENT: Negative for congestion and sore throat. Eyes: Negative for blurred vision and double vision. Respiratory: Positive for cough and shortness of breath. Negative for hemoptysis, sputum productionand wheezing. Cardiovascular: Negative for chest pain and palpitations. Gastrointestinal: Negative for abdominal pain, constipation, diarrhea, nausea and vomiting. Genitourinary: Negative for dysuria, frequency and urgency. Musculoskeletal: Negative for joint pain and myalgias. Skin: Negative for rash. Neurological: Negative for sensory change and headaches. Psychiatric/Behavioral: Negative for depression. The patient is not nervous/anxious. Past Medical History: Diagnosis Date ??? HX OTHER MEDICAL B/L arthroscopic knee surg ??? HX OTHER MEDICAL RA ??? HX OTHER MEDICAL R knee replacement ??? HX OTHER MEDICAL blood clot- right leg ??? Hyperlipidemia Hyperlipidemia ??? Hypertension Hypertension ??? Screening mammogram, encounter for 1945 ??? Uterine cancer ([facility]/HCC) 04/2018 Past Surgical History: Procedure Laterality Date [...] Substance Use Topics ??? Alcohol use: No Allergies Allergen Reactions ??? Atorvastatin Muscle pain ??? Codeine Nausea only Reaction: Nausea, Medications Prior to Admission Medication Sig Dispense Refill Last Dose ??? diphenhydrAMINE-acetaminophen (TYLENOL PM) 25-500 mg tablet Take 1 tablet by mouth nightly as needed for sleep ??? iron,carbonyl-vitamin C 65 mg iron- 125 mg tablet,delayed release (DR/EC) Take by mouth daily Taking ??? letrozole (FEMARA) 2.5 mg tablet Take 1 tablet (2.5 mg total) by mouth daily. 30 tablet 11 Taking ??? losartan-hydroCHLOROthiazide (HYZAAR) 100-12.5 mg per tablet TAKE 1 TABLET BY MOUTH DAILY 90 tablet 3 Taking ??? methotrexate 2.5 mg tablet Take 12.5 mg by mouth every 7 days sunday 3 Taking Objective: Patient Vitals for the past 24 hrs: BP Temp Temp src Pulse Resp SpO2 Height Weight 12/02/19 1700 166/70 36.6 ??C (97.8 ??F) Skin 90 20 92 % 170.2 cm (5' 7 ) 84.3 kg (185 lb 14.4 oz) 12/02/19 1630 164/77 -- -- 91 27 95 % -- -- 12/02/19 1430 151/69 -- -- 96 25 95 % -- -- 12/02/19 1345 163/88 -- -- 88 23 97 % -- -- 12/02/19 1257 170/88 36.4 ??C (97.6 ??F) Oral 95 16 96 % 170.2 cm (5' 7 ) 84.8 kg (187 lb) Physical Exam: Gen: awake, no acute distress, pleasant and cooperative, resting comfortably in bed Neuro: no focal deficits, CN II-XII grossly intact Eyes: extraocular movement intact, sclerae anicteric Neck: supple, trachea midline CV: regular rate and rhythm; 2/6 systolic murmur; no peripheral edema Pulm: clear to auscultation bilaterally; no wheezes, rales, or rhonchi GI: soft, non-tender, non-distended, normal bowel sounds MSK: no cyanosis or clubbing Psych: normal mood and affect Laboratory Results: Chemistry Lab Results Component Value Date SODIUM 134 (L) 12/02/2019 POTASSIUM 3.7 12/02/2019 CHLORIDE 96 (L) 12/02/2019 CO2 25 12/02/2019 ANIONGAP 13 12/02/2019 BUNSER 17 12/02/2019 CREATININE 0.68 12/02/2019 GLUCOSE 124 12/02/2019 CALCIUM 9.9 12/02/2019 BILITOT 0.4 12/02/2019 ALBUMIN 4.5 12/02/2019 GFRNAA 87 12/02/2019 ALKPHOS 85 12/02/2019 AST 37 12/02/2019 ALT 41 12/02/2019 MAGNESIUM 2.0 12/02/2019 Lab Results Component Value Date WBC 8.8 12/02/2019 HGB 11.1 (L) 12/02/2019 HCT 36.9 12/02/2019 MCV 75.8 (L) 12/02/2019 LABPLAT 267 12/02/2019 Lab Results Component Value Date INR 1.2 12/02/2019 Radiology: Xr Chest Pa Lateral 2 Vw Result Date: 12/01/2019 Narrative: EXAMINATION: XR CHEST PA LATERAL 2 VIEWS ORDERING HEALTHCARE PROVIDER: INEZ LONG HISTORY: cough Patient states having a cough for 2 1/2 weeks. Extreme SOB. HX lymph node removed due to cancer, uterus removed due to cancer. Both done in 2018. TECHNIQUE: PA and lateral radiographs of the chest. COMPARISON: None available FINDINGS: HEART/MEDIASTINUM: The cardiomediastinal silhouette and pulmonary vasculature are normal. LUNGS/PLEURA: There is no airspace consolidation or pleural effusion. HARDWARE/LINES/TUBES: None. BONES: Mild thoracic spondylosis. OTHER: Hiatal hernia. Impression: No radiographic evidence of acute cardiopulmonary disease. Electronically signed by: Saqib Potter M.D. Xr Chest 1 View Result Date: 12/02/2019 Narrative: EXAMINATION: XR CHEST 1 VIEW ORDERING HEALTHCARE PROVIDER: ANA STUBBS HISTORY: chest pain Pt came in for out pt chest ct this morning. Was told she has bi-lat lung clots and was sent to the ER. Hx of left breast lumpectomy. Non smoker. TECHNIQUE: Portable upright AP radiograph of the chest. COMPARISON: Chest radiographs 12/01/2019 FINDINGS: HEART/MEDIASTINUM: The cardiomediastinal silhouette and pulmonary vasculature are normal. LUNGS/PLEURA: There is no airspace consolidation or pleural effusion. HARDWARE/LINES/TUBES: None. 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 Mild thoracic spondylosis. OTHER: Hiatal hernia. Impression: No acute findings. Electronically signed by: Saqib Potter M.D. Ct Chest Pe W Contrast Result Date: 12/02/2019 Narrative: EXAMINATION: CT CHEST PE W CONTRAST ORDERING HEALTHCARE PROVIDER: INEZ LONG HISTORY: PE suspected, high pretest prob. Cough for 3 weeks, sob started 1 week ago, history of left lumpectomy COMPARISON: None available TECHNIQUE: CT chest by PE protocol with the uneventful intravenous ad ministration of 125 mL Optiray 350. 3D volumetric MIP was reviewed. Automated exposure control was used as a dose optimization technique for this examination. FINDINGS: There are bilateral pulmonary emboli seen in all lung lobes. Moderate clot burden with ventricular ratio at the upper limits of normal at 0.9. There is no pulmonary infarct. I could not reach the ordering provider by telephone, sothe patient was sent to the emergency department and I notified the ER physician. The heart is normal in size. There is no pericardial effusion. There is a large sliding-type esophageal hiatal hernia. No mediastinal or hilar lymph node enlargement is seen by size criteria. A nodular density in the left breast would be better evaluated mammographically. There is mild diffuse thickening of the adrenal glands. There are transverse colonic diverticula. There is thoracic spondylosis with flowing osteophytes at multiple contiguous levels in a pattern suggestive of diffuse idiopathic skeletal hyperostosis (DISH). Critical result message with acuity critical has been communicated to ordering provider via the [employer] Critical Result tracking system. Status of follow up communication is recorded in [employer]. Impression: 1. Bilateral pulmonary embolus with moderate clot burden. Borderline right heart strain. No pulmonary infarct. 2. Additional findings as above. Electronically signed by: Saqib Potter M.D. ASSESSMENT AND PLAN: Bilateral pulmonary embolism (CMS/HCC) Cause shortness of breath cough, seen on chest CT today. Therapeutic Lovenox started in ED, switched to Eliquis for outpatient therapy. TTE ordered for AM to ensure no right heart strain. Cause unclear at this point, chest CT showed a nodular density in the left breast and recommended follow-up mammogram, however patient had a normal mammogram 3 weeks ago from her log preparer onc physician Petra (results in Care Everywhere). Essential hypertension Continue home antihypertensives. History of malignant neoplasm of upper-inner quadrant of left breast in female, estrogen receptor positive (CMS/HCC) S/p lumpectomy, home letrozole to be replaced with formulary anastrozole while inpatient per pharmacy. Followed by log preparer onc as an outpatient. History of malignant neoplasm of uterus (CMS/HCC) S/p hysterectomy. 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 rheumatoid factor (CMS/HCC) Continue home methotrexate, administered weekly on Wednesdays. DVT PPx - on Eliquis Expected LOS: less than 2 midnights MDM: moderate complexity Renu Martínez Jr., MD Internal Medicine - Hospitalist [facility] - Adult Hospitalist Service CC: Inez Long MD ESTATE AGENCY PRINCIPAL ESTATE AGENCY PRINCIPAL documented in this encounter Nursing Notes * Portia Gallegos RN - 12/03/2019 4:37 PM CST Patient and were read discharge instructions. No questions at this time. Patient left via wheelchair to private auto to home with at 1633. ESTATE AGENCY PRINCIPAL documented in this encounter ED Notes * Ana Stubbs MD - 12/02/2019 1:07 PM CSTAssociated Order(s): ECG 12 lead HPI Chief Complaint Patient presents with ??? Thrombophilia Provider in room @ 12:55 PM 12/02/2019 73 y/o F w/ PMHx of HLD, HTN, breast cancer, s/p lumpectomy, bilateral knee replacements (2017), uterine cancer, and s/p hysterectomy (2018) presents with SOB and dyspnea on exertion than began suddenly approximately one week ago. Pt was seen by Dr Long yesterday who did a workup on patient. Pt states her blood work and x-ray came back within parameters. Pt additionally states Dr. Long ordered pt for a Ct. Pt denies any CP, BLE swelling, nausea, vomiting, congestion, or fever. Pt further denies any symptoms prior to onset. Patient History Patient Active Problem List Diagnosis Date Noted ??? Encounter for screening colonoscopy 09/29/2019 ??? [...] behavioral problems. Physical Exam ED Triage Vitals [12/02/19 1257] Temp Pulse Resp BP SpO2 36.4 ??C (97.6 ??F) 95 16 170/88 96 % Temp src Heart Rate Source Patient Position BP Location FiO2 (%) Oral -- -- -- -- Physical Exam Vitals signs and nursing note reviewed. Constitutional: General: She is not in acute distress. Appearance: She is well-developed. HENT: Head: Normocephalic and atraumatic. Eyes: Conjunctiva/sclera: Conjunctivae normal. Neck: Musculoskeletal: Neck supple. Cardiovascular: Rate and Rhythm: Normal rate and regular rhythm. Heart sounds: Normal heart sounds. No murmur. Pulmonary: Effort: Pulmonary effort is normal. No respiratory distress. Breath sounds: Normal breath sounds. Abdominal: General: Bowel sounds are normal. There is no distension. Palpations: Abdomen is soft. Tenderness: There is no tenderness. There is no guarding. Musculoskeletal: Right lower leg: Edema (trace) present. Left lower leg: Edema (trace) present. Skin: General: Skin is warm and dry. Neurological: Mental Status: She is alert and oriented to person, place, and time. MDM MDM Number of Diagnoses or Management Options PE (pulmonary thromboembolism) ([facility]): Amount and/or Complexity of Data Reviewed Clinical lab tests: ordered and reviewed Tests in the radiology section of CPT??: ordered and reviewed Tests in the medicine section of CPT??: reviewed and ordered Risk of Complications, Morbidity, and/or Mortality Presenting problems: moderate Diagnostic procedures: moderate Management options: moderate General comments: Patient presents with shortness of breath. She has had extensive workup as an outpatient. She had CT today showing bilateral pulmonary emboli. Her sats are normal. She'll be admitted for anticoagulation and further workup with echocardiogram and transition to oral anticoagulation. Patient Progress Patient progress: stable Vitals: 12/02/19 1257 12/02/19 1345 12/02/19 1430 12/02/19 1630 BP: 170/88 163/88 151/69 164/77 Pulse: 95 88 96 91 Resp: 16 23 25 27 Temp: 36.4 ??C (97.6 ??F) TempSrc: Oral SpO2: 96% 97% 95% 95% Weight: 84.8 kg (187 lb) Height: 170.2 cm (5' 7 ) XR Chest 1 View Final Result No acute findings. Electronically signed by: Saqib Potter M.D. Labs Reviewed CBC WITH AUTO DIFFERENTIAL - Abnormal Result Value WBC 8.8 Hgb 11.1 (*) Hct 36.9 Plt 267 MPV 10.5 RBC 4.87 MCV 75.8 (*) MCH 22.8 (*) MCHC 30.1 (*) RDW CV 24.1 (*) RDW SD 63.5 (*) NRBC abs 0.00 COMPREHENSIVE METABOLIC PANEL - Abnormal Sodium 134 (*) Potassium, pl 3.7 Chloride 96 (*) CO2 25 Anion gap 13 BUN 17 Creatinine 0.68 Glucose 124 Calcium 9.9 Bilirubin, total 0.4 Protein, pl 7.6 Albumin 4.5 Alk phos 85 ALT 41 AST 37 PROTIME-INR - Abnormal PT 13.2 (*) INR 1.2 DIFFERENTIAL AUTO - Abnormal Neutrophil abs 7.5 (*) Imm gran abs 0.0 Lymphocyte abs 0.5 (*) Monocyte abs 0.5 Eosinophil abs 0.1 Basophil abs 0.0 Neutrophil pct 85.4 Imm gran pct 0.2 Lymphocyte pct 6.2 Monocyte pct 6.2 Eosinophil pct 1.5 Basophil pct 0.5 APTT aPTT 25 MAGNESIUM Magnesium 2.0 PRO B-TYPE NATRIURETIC PEPTIDE NT-proBNP 193 TROPONIN T Troponin T <0.01 EGFR GFR 87 ECG 12 lead Date/Time: 12/02/2019 1:43 PM Performed by: Ana Stubbs MD Authorized by: Ana Stubbs MD Rate: ECG rate: 91 Rhythm: Rhythm: sinus rhythm ED Course as of Dec 02 1733 Time: 12/02 1319 Comment: Discussed patient's case with Dr Spear who accepts patient for admission. By: Frederick Mendoza PE (pulmonary thromboembolism) ([facility]) This note is prepared by Frederick Mendoza, acting as a scribe for Dr. Ana Stubbs. I electronically signed this note at 5:34 PM on 12/02/2019. I, Dr. Ana Stubbs, have personally performed the services described in the documentation , reviewed the documentation, as recorded by the scribe in my presence, and it accurately and completely records my words and actions. Ana Stubbs MD 12/02/19 1812 ESTATE AGENCY PRINCIPAL * Shabana Soni RN - 12/02/2019 12:54 PM CST Pt is in the ED for c/o blood clot in lungs. Pt was having a CT scan due to SOB ordered by PCP. Pt has multiple blood clots in her lungs. She stated she has been sob x1 week. ESTATE AGENCY PRINCIPAL * Molly Galan RN - 12/02/2019 12:50 PM CST Bed: ED08 Expected date: Expected time: Means of arrival: Comments: CT Molly Galan RN 12/02/19 1250 ESTATE AGENCY PRINCIPAL documented in this encounter Miscellaneous Notes * Plan of Care - Portia Gallegos RN - 12/03/2019 3:07 PM CST Problem: Health Behavior: Goal: Understanding of discharge needs will improve Outcome: Adequate for Discharge Goals: Clinical Goals for the Shift: pt to remain hemodynamically stable, no falls, no SOB, VSS, labs improving, Summary: Patient has remained hemodynamically stable, no falls, no SOB, vitals have remained stable, labs have improved. Patient is having no pain and is tolerating the blood thinner well. ESTATE AGENCY PRINCIPAL * Plan of Care - Daisy Jasso RN - 12/03/2019 4:59 AM CST Goals: Clinical Goals for the Shift: VSS, breathe easy throughout the night. Summary: Resting quietly at interval with stable VSS, no shortness of breath at this time with rest, but slight with exertion. Problem: Health Behavior: Goal: Understanding of discharge needs will improve Outcome: Progressing ESTATE AGENCY PRINCIPAL * Assessment & Plan Note - Renu Martínez Jr., MD - 12/02/2019 7:16 PM REAL ESTATE AGENCY PRINCIPAL Associated Problem(s): 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 rheumatoid factor (CMS/HCC) (HCC) Continue home methotrexate, administered weekly on Wednesdays. ESTATE AGENCY PRINCIPAL * Assessment & Plan Note - Renu Martínez Jr., MD - 12/02/2019 7:15 PM REAL ESTATE AGENCY PRINCIPAL Associated Problem(s): Malignant neoplasm of uterus (CMS/HCC) (HCC) (Resolved 07/02/2020) S/p hysterectomy. ESTATE AGENCY PRINCIPAL * Assessment & Plan Note - Renu Martínez Jr., MD - 12/02/2019 7:14 PM REAL ESTATE AGENCY PRINCIPAL Associated Problem(s): Malignant neoplasm of upper-inner quadrant of left breast in female, estrogen receptor positive (HCC) S/p lumpectomy, home letrozole to be replaced with formulary anastrozole while inpatient per pharmacy. Followed by log preparer onc as an outpatient. ESTATE AGENCY PRINCIPAL ESTATE AGENCY PRINCIPAL ESTATE AGENCY PRINCIPAL * Assessment & Plan Note - Renu Martínez Jr., MD - 12/02/2019 7:14 PM REAL ESTATE AGENCY PRINCIPAL Associated Problem(s): Essential hypertension Continue home antihypertensives. ESTATE AGENCY PRINCIPAL * Assessment & Plan Note - Renu Martínez Jr., MD - 12/02/2019 7:03 PM REAL ESTATE AGENCY PRINCIPAL Associated Problem(s): Bilateral pulmonary embolism (CMS/HCC) (HCC) (Resolved 07/02/2020) Cause shortness of breath cough, seen on chest CT today. Therapeutic Lovenox started in ED, switched to Eliquis for outpatient therapy. TTE ordered for AM to ensure no right heart strain. Cause unclear at this point, chest CT showed a nodular density in the left breast and recommended follow-up mammogram, however patient had a normal mammogram 3 weeks ago from her log preparer onc physician Petra (results in Care Everywhere). ESTATE AGENCY PRINCIPAL documented in this encounter Plan of Treatment Not on file documented as of this encounter Procedures Procedure Name Priority Date/Time Associated Diagnosis Comments TRANSTHORACIC ECHO (TTE) COMPLETE W DOPPLER/CF WO CONTRAST STAT 12/03/2019 8:57 AM REAL ESTATE AGENCY PRINCIPAL EGFR Routine 12/03/2019 4:38 AM REAL ESTATE AGENCY PRINCIPAL CBC WITHOUT DIFFERENTIAL Routine 12/03/2019 4:38 AM REAL ESTATE AGENCY PRINCIPAL PHOSPHORUS Routine 12/03/2019 4:38 AM REAL ESTATE AGENCY PRINCIPAL MAGNESIUM Routine 12/03/2019 4:38 AM REAL ESTATE AGENCY PRINCIPAL BASIC METABOLIC PANEL Routine 12/03/2019 4:38 AM REAL ESTATE AGENCY PRINCIPAL XR CHEST 1 VIEW ED 12/02/2019 2:24 PM REAL ESTATE AGENCY PRINCIPAL EGFR STAT 12/02/2019 1:24 PM REAL ESTATE AGENCY PRINCIPAL DIFFERENTIAL AUTO STAT 12/02/2019 1:2 4 PM REAL ESTATE AGENCY PRINCIPAL PRO B-TYPE NATRIURETIC PEPTIDE STAT 12/02/2019 1:24 PM REAL ESTATE AGENCY PRINCIPAL CBC WITH AUTO DIFFERENTIAL STAT 12/02/2019 1:24 PM REAL ESTATE AGENCY PRINCIPAL APTT STAT 12/02/2019 1:24 PM REAL ESTATE AGENCY PRINCIPAL PROTIME-INR STAT 12/02/2019 1:24 PM REAL ESTATE AGENCY PRINCIPAL TROPONIN T STAT 12/02/2019 1:24 PM REAL ESTATE AGENCY PRINCIPAL MAGNESIUM Routine 12/02/2019 1:24 PM REAL ESTATE AGENCY PRINCIPAL COMPREHENSIVE METABOLIC PANEL STAT 12/02/2019 1:24 PM REAL ESTATE AGENCY PRINCIPAL ECG 12-LEAD Routine 12/02/2019 1:22 PM REAL ESTATE AGENCY PRINCIPAL documented in this encounter Results * TRANSTHORACIC ECHO (TTE) COMPLETE W DOPPLER/CF WO CONTRAST (12/03/2019 8:57 AM REAL ESTATE AGENCY PRINCIPAL) Anatomical Region Laterality Modality Ultrasound 12/03/2019 8:17 AM REAL ESTATE AGENCY PRINCIPAL Narrative 12/03/2019 1:04 PM REAL ESTATE AGENCY PRINCIPAL [address] [address] Echocardiogram Report Patient Name: JOLENE GORDON : 1945 Study Date: 12/03/2019 8:17:56 AM Gender: F Tech: KAYLA Location: [id number] Ref.Provider: RENU MARTÍNEZ Height(Cm): 170 BSA: 2 Weight(Kg): 84.8 Quality: Adequate Order Provider: Demarco Procedures: Echocardiographic Report: Transthoracic echocardiogram with complete 2D, M-Mode, and color Doppler examination. Indications: Pulmonary embolism. Measurements: 2D/M Mode Doppler Measurement Value Normal Range Measurement Value Normal Range EF Teich MM 87.3 [ 55.0 - 70.0 ] percent ANTHONY Vmax 2.33 [ 2.00 - 4.00 ] cm2 LVIDd MM 3.16 [ 3.90 - 5.30 ] cm AV Mean PG 7 [ 2 - 4 ] mmHg LVIDs MM 1.40 [ 2.30 - 3.90 ] cm AV Peak Emmanuel 1.60 [ 1.00 - 1.70 ] m/s LVPWd MM 1.01 [ 0.60 - 1.00 ] cm AV VTI 35.65 cm IVSd MM 1.20 [ 0.60 - 0.90 ] cm LVOT Diam 1.85 [ 1.70 - 2.10 ] cm LA Dimension MM 4.00 [ 2.70 - 3.80 ] cm LVOT Peak Emmanuel 1.40 [ 0.70 - 1.10 ] m/s AoR Diam MM 2.51 [ 2.60 - 3.70 ] cm LVOT VTI 31.81 [ 20.00 - 30.00 ] cm ACS MM 1.85 cm MV E Peak Emmanuel 0.99 [ 0.60 - 1.30 ] m/s MV A Peak Emmanuel 0.90 [ 1.00 - 1.20 ] m/s MV Mean PG 1 [ <= 5 ] mmHg MV PHT 74 [ 20 - 100 ] msec MVA 3.00 MV Decel Time 254 [ 104 - 258 ] msec PV Peak Emmanuel 0.97 [ 0.40 - 0.80 ] m/s TR Peak Emmanuel 2.84 [ 1.00 - 2.80 ] m/s TR Peak PG 32 mmHg RVSP 42.00 [ 10.00 - 36.00 ] mmHg E' 0.06 E/E' 15.75 PA Pressure 32.00 [ 10.00 - 36.00 ] mmHg Findings: Atrial Septum: Normal atrial septum. Left Ventricle: Mild concentric left ventricular hypertrophy. No left ventricular outflow tract gradient at rest. Hyperdynamic left ventricular function. No focal wall motion abnormalities. Impaired diastolic relaxation Grade I. Ejection fraction is visually estimated at 75 %. Left Atrium: The left atrium is normal in size. Right Ventricle: Normal right ventricular size. Normal right ventricular systolic function. Right Atrium: The right atrium is normal in size. Aortic Valve: Normal structure of the aortic valve. Mitral Valve: Moderate mitral annular calcification. Mild mitral valve regurgitation. Pulmonic Valve: Normal structure of the pulmonic valve. Tricuspid Valve: Moderate pulmonary hypertension based on right ventricular systolic pressure. Estimated peak RVSP is 50 mmHg. Mild tricuspid regurgitation. Pericardium: Normal pericardium with no significant pericardial effusion. Aorta: Normal aortic root. Sinus of Valsalva is normal. Aortic arch is normal. Descending aorta is normal. IVC: Normal size and normal respiratory collapse consistent with normal right atrial pressure (<5 mmHg). Pulmonary Artery: Normal pulmonary artery size. Conclusions: Hyperdynamic left ventricular function.Mild concentric left [...] Signed By: Reyes Unger MD 2019-12-03 13:04:47 REAL ESTATE AGENCY PRINCIPAL Procedure Note Reyes Unger MD - 12/03/[address] [address] Echocardiogram Report Patient Name: JOLENE GORDON : 1945 Study Date: 12/03/2019 8:17:56 AM Gender: F Tech: Location: [id number] Ref.Provider: RENU MARTÍNEZ Height(Cm): 170 BSA: 2 Weight(Kg): 84.8 Quality: Adequate Order Provider: Demarco Procedures: Echocardiographic Report: Transthoracic echocardiogram with complete 2D, M-Mode, and color Dopplerexamination. Indications: Pulmonary embolism. Measurements: 2D/M Mode Doppler Measurement Value Normal Range Measurement Value Normal Range EF Teich MM 87.3 [ 55.0 - 70.0 ] percent ANTHONY Vmax 2.33 [ 2.00 - 4.00 ]cm2 LVIDd MM 3.16 [ 3.90 - 5.30 ] cm AV Mean PG 7 [ 2 - 4 ] mmHg LVIDs MM 1.40 [ 2.30 - 3.90 ] cm AV Peak Emmanuel 1.60 [ 1.00 - 1.70 ] m/s LVPWd MM 1.01 [ 0.60 - 1.00 ] cm AV VTI 35.65 cm IVSd MM 1.20 [ 0.60 - 0.90 ] cm LVOT Diam 1.85 [ 1.70 - 2.10 ] cm LA Dimension MM 4.00 [ 2.70 - 3.80 ] cm LVOT Peak Emmanuel 1.40 [ 0.70 - 1.10 ]m/s AoR Diam MM 2.51 [ 2.60 - 3.70 ] cm LVOT VTI 31.81 [ 20.00 - 30.00 ] cm ACS MM 1.85 cm MV E Peak Emmanuel 0.99 [ 0.60 - 1.30 ] m/s MV A Peak Emmanuel 0.90 [ 1.00 - 1.20 ] m/s MV Mean PG 1 [ <= 5 ] mmHg MV PHT 74 [ 20 - 100 ] msec MVA 3.00 MV Decel Time 254 [ 104 - 258 ] msec PV Peak Emmanuel 0.97 [ 0.40 - 0.80 ] m/s TR Peak Emmanuel 2.84 [ 1.00 - 2.80 ] m/s TR Peak PG 32 mmHg RVSP 42.00 [ 10.00 - 36.00 ] mmHg E' 0.06 E/E' 15.75 PA Pressure 32.00 [ 10.00 - 36.00 ] mmHg Findings: Atrial Septum: Normal atrial septum. Left Ventricle: Mild concentric left ventricular hypertrophy. No left ventricular outflowtract gradient at rest. Hyperdynamic left ventricular function. No focal wall motionabnormalities. Impaired diastolic relaxation Grade I. Ejection fraction is visuallyestimated at 75 %. Left Atrium: The left atrium is normal in size. Right Ventricle: Normal right ventricular size. Normal right ventricular systolicfunction. Right Atrium: The right atrium is normal in size. Aortic Valve: Normal structure of the aortic valve. Mitral Valve: Moderate mitral annular calcification. Mild mitral valve regurgitation. Pulmonic Valve: Normal structure of the pulmonic valve. Tricuspid Valve: Moderate pulmonary hypertension based on right ventricular systolicpressure. Estimated peak RVSP is 50 mmHg. Mild tricuspid regurgitation. Pericardium: Normal pericardium with no significant pericardial effusion. Aorta: Normal aortic root. Sinus of Valsalva is normal. Aortic arch is normal.Descending aorta is normal. IVC: Normal size and normal respiratory collapse consistent with normal rightatrial pressure (<5 mmHg). Pulmonary Artery: Normal pulmonary artery size. Conclusions: Hyperdynamic left ventricular function.Mild concentric left ventricularhypertrophy. Abnormal LV outflow tract contour but No left ventricular outflow tractgradient at rest. No focal wall motion abnormalities. Impaired diastolic relaxation Grade I.Ejection fraction is visually estimated at 75 %. Moderate mitral annular calcification. Mild mitral valve regurgitation. Moderate pulmonary hypertension based on right ventricular systolicpressure. Estimated peak RVSP is 50 mmHg. Mild tricuspid regurgitation. Electronically Signed By: Reyes Unger MD 2019-12-03 13:04:47 REAL ESTATE AGENCY PRINCIPAL us Ana Stubbs MD CV ECHO PROCEDURES Final Res ult * eGFR (12/03/2019 4:38 AM REAL ESTATE AGENCY PRINCIPAL) eGFR 87 mL/min/1.7 3 m2 [facility] ([place]) Comment: Interpretive Data Reference Interval Normal ?>/= 90 mL/min/1.73m2 Mildly decreased* ? 60 - 89 mL/min/1.73m2 Mildly to moderately decreased ?45 - 59 mL/min/1.73m2 Moderately to severely decreased ??30 - 44 mL/min/1.73m2 Severely decreased ?15 - 29 mL/min/1.73m2 Kidney Failure ?< 15 ??mL/min/1.73m2 *Relative to young adult level If -[place] multiply value by 1.16. Estimated glomerular filtration [...] was last reviewed 2016. Blood specimen (specimen) 12/03/2019 4:38 AM REAL ESTATE AGENCY PRINCIPAL 12/03/2019 5:04 AM REAL ESTATE AGENCY PRINCIPAL us Renu Martínez Jr., MD LAB BLOOD ORDERABLE S Final Result [facility] ([place]) 1 [facility] [place] [address] * Phosphorus (12/03/2019 4:38 AM REAL ESTATE AGENCY PRINCIPAL) Pathologist [facility] Phosphorus, pl 3.8 2.3 - 4.5 mg/dL [facility] ([place]) Blood specimen (specimen) 12/03/2019 4:38 AM REAL ESTATE AGENCY PRINCIPAL 12/03/2019 5:04 AM REAL ESTATE AGENCY PRINCIPAL Renu Martínez Jr., MD LAB BLOOD ORDERABLE S Final Result [facility] ([place]) [address] [facility] [place] [address] * Magnesium (12/03/2019 4:38 AM REAL ESTATE AGENCY PRINCIPAL) Pathologist [facility] Magnesium 2.0 1.6 - 2.4 mg/dL [facility] ([place]) Blood specimen (specimen) 12/03/2019 4:38 AM REAL ESTATE AGENCY PRINCIPAL 12/03/2019 5:04 AM REAL ESTATE AGENCY PRINCIPAL us Renu Martínez Jr., MD LAB BLOOD ORDERABLE S Final Result Performing Organization Address City/[facility] Co de Phone Number [facility] ([place]) 1 [facility] [place] [place] [address] * (ABNORMAL) Basic metabolic panel (12/03/2019 4:38 AM REAL ESTATE AGENCY PRINCIPAL) Pathologist [facility] Sodium 136 135 - 145 mmol/L [facility] ([place]) Potassium, pl 3.8 3.3 - 4.9 mmol/L [facility] ([place]) Chloride 100 97 - 110 mmol/L [facility] ([place]) CO2 25 22 - 32 mmol/L [facility] ([place]) Anion gap 12 2 - 15 mmol/L [facility] ([place]) BUN 19 8 - 25 mg/dL [facility] ([place]) Creatinine 0.69 0.60 - 1.10 mg/dL [facility] ([place]) Glucose 212(H) 70 - 199 mg/dL [facility] ([place]) Comment: Interpretive Data Fasting glucose [...] interpretive data was last revised 2017. Calcium 8.5 8.5 - 10.3 mg/dL [facility] ([place]) Blood specimen (specimen) 12/03/2019 4:38 AM REAL ESTATE AGENCY PRINCIPAL 12/03/2019 5:04 AM REAL ESTATE AGENCY PRINCIPAL us Renu Martínez Jr., MD LAB BLOOD ORDERABLE S Final Result [facility] ([place]) 1 [facility] Department [place] [address] * (ABNORMAL) CBC without differential (12/03/2019 4:38 AM REAL ESTATE AGENCY PRINCIPAL) WBC 7.9 3.8 - 9.9 K/cumm [facility] ([place]) Hgb 9.2(L) 11.9 - 15.5 g/dL [facility] ([place]) Hct 31.1(L) 35.6 - 45.5 % [facility] ([place]) Plt 238 150 - 400 K/cumm [facility] ([place]) MPV 9.5 9.1 - 12.3 fL [facility] ([place]) RBC 4.13 3.90 - 5.20 M/cumm [facility] ([place]) MCV 75.3(L) 81.3 - 96.4 fL [facility] ([place]) MCH 22.3(L) 27.1 - 33.3 pg [facility] ([place]) MCHC 29.6(L) 32.3 - 35.7 g/dL [facility] ([place]) RDW CV 23.4(H) 11.1 - 14.9 % [facility] ([place]) RDW SD 62.4(H) 35.7 - 48.1 fL [facility] ([place]) NRBC abs 0.00 0.00 - 0.01 K/cumm [facility] ([place]) Blood specimen (specimen) 12/03/2019 4:38 AM REAL ESTATE AGENCY PRINCIPAL 12/03/2019 5:04 AM REAL ESTATE AGENCY PRINCIPAL us Renu Martínez Jr., MD LAB BLOOD ORDERABLE S Final Result [facility] ([place]) 1 [facility] Department [place] [address] * XR Chest 1 View (12/02/2019 2:24 PM REAL ESTATE AGENCY PRINCIPAL) Anatomical Region Laterality Modality Body, Chest N/A Computed Radiogr aphy 12/02/2019 3:18 PM REAL ESTATE AGENCY PRINCIPAL Impressions 12/02/2019 3:19 PM REAL ESTATE AGENCY PRINCIPAL No acute findings. Electronically signed by: Saqib Potter M.D. Narrative 12/02/2019 3:19 PM REAL ESTATE AGENCY PRINCIPAL EXAMINATION: XR CHEST 1 VIEW ORDERING HEALTHCARE PROVIDER: ANA STUBBS HISTORY: chest pain Pt came in for out pt chest ct this morning. Was told she has bi-lat lung clots and was sent to the ER. Hx of left breast lumpectomy. Non smoker. ?? TECHNIQUE: Portable upright AP radiograph of the chest. COMPARISON: Chest radiographs 12/01/2019 FINDINGS: HEART/MEDIASTINUM: The cardiomediastinal silhouette and pulmonary vasculature are normal. LUNGS/PLEURA: There is no airspace consolidation or pleural effusion. HARDWARE/LINES/TUBES: None. 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 ??Mild thoracic spondylosis. OTHER: Hiatal hernia. Procedure Note Saqib Potter MD - 12/02/2019 EXAMINATION: XR CHEST 1 VIEW ORDERING HEALTHCARE PROVIDER: ANA STUBBS HISTORY: chest pain Pt came in for out pt chest ct this morning. Was told she has bi-lat lung clots and was sent to the ER. Hx of left breast lumpectomy. Non smoker. TECHNIQUE: Portable upright AP radiograph of the chest. COMPARISON: Chest radiographs 12/01/2019 FINDINGS: HEART/MEDIASTINUM: The cardiomediastinal silhouette and pulmonary vasculature are normal. LUNGS/PLEURA: There is no airspace consolidation or pleural effusion. HARDWARE/LINES/TUBES: None. 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 Mild thoracic spondylosis. OTHER: Hiatal hernia. IMPRESSION: No acute findings. Electronically signed by: Saqib Potter M.D. Ana Stubbs MD IMG XR PROCEDURES Final Resu lt * eGFR (12/02/2019 1:24 PM REAL ESTATE AGENCY PRINCIPAL) eGFR 87 mL/min/1.7 3 m2 [facility] ([place]) Comment: Interpretive Data Reference Interval Normal ?>/= 90 mL/min/1.73m2 Mildly decreased* ? 60 - 89 mL/min/1.73m2 Mildly to moderately decreased ?45 - 59 mL/min/1.73m2 Moderately to severely decreased ??30 - 44 mL/min/1.73m2 Severely decreased ?15 - 29 mL/min/1.73m2 Kidney Failure ?< 15 ??mL/min/1.73m2 *Relative to young adult level If -[place] multiply value by 1.16. Estimated glomerular filtration [...] was last reviewed 2016. Blood specimen (specimen) 12/02/2019 1:24 PM REAL ESTATE AGENCY PRINCIPAL 12/02/2019 1:28 PM REAL ESTATE AGENCY PRINCIPAL Ana Stubbs MD LAB BLOOD ORDERABLES Final R esult [facility] ([place]) 1 [facility] Department [place] [address] * (ABNORMAL) Differential, auto (12/02/2019 1:24 PM REAL ESTATE AGENCY PRINCIPAL) Neutrophil abs 7.5(H) 1.7 - 6.5 K/cumm [facility] ([place]) Imm gran abs 0.0 0.0 - 0.1 K/cumm [facility] ([place]) Lymphocyte abs 0.5(L) 0.8 - 3.3 K/cumm [facility] ([place]) Monocyte abs 0.5 0.2 - 0.8 K/cumm [facility] ([place]) Eosinophil abs 0.1 0.0 - 0.5 K/cumm [facility] ([place]) Basophil abs 0.0 0.0 - 0.1 K/cumm [facility] ([place]) Neutrophil pct 85.4 % [facility] ([place]) Comment: Interpretive Data Percent cell count reference ranges are not reported, since discordance with absolute values may lead to misinterpretation of CBC data. Current Interpretive Data was last revised on 2018. Imm gran pct 0.2 % [facility] ([place]) Comment: Interpretive Data Percent cell count reference ranges are not reported, since discordance with absolute values may lead to misinterpretation of CBC data. Current Interpretive Data was last revised on 2018. Lymphocyte pct 6.2 % [facility] ([place]) Comment: Interpretive Data Percent cell count reference ranges are not reported, since discordance with absolute values may lead to misinterpretation of CBC data. Current Interpretive Data was last revised on 2018. Monocyte pct 6.2 % [facility] ([place]) Comment: Interpretive Data Percent cell count reference ranges are not reported, since discordance with absolute values may lead to misinterpretation of CBC data. Current Interpretive Data was last revised on 2018. Eosinophil pct 1.5 % [facility] ([place]) Comment: Interpretive Data Percent cell count reference ranges are not reported, since discordance with absolute values may lead to misinterpretation of CBC data. Current Interpretive Data was last revised on 2018. Basophil pct 0.5 % [facility] ([place]) Comment: Interpretive Data Percent cell count reference ranges are not reported, since discordance with absolute values may lead to misinterpretation of CBC data. Current Interpretive Data was last revised on 2018. Blood specimen (specimen) 12/02/2019 1:24 PM REAL ESTATE AGENCY PRINCIPAL 12/02/2019 1:28 PM REAL ESTATE AGENCY PRINCIPAL Ana Stubbs MD LAB BLOOD ORDERABLES Final R esult [facility] ([place]) 1 [facility] [place] [address] * Troponin T (12/02/2019 1:24 PM REAL ESTATE AGENCY PRINCIPAL) Troponin T <0.01 0.00 - 0.01 ng/mL [facility] ([place]) Comment: Interpretive Data Reference ranges for children <18 years of age have not been established. - > or = 18 years: Serial determinations are recommended for the diagnosis of myocardial infarction. ??Temporal rise and fall are consistent with myocardial infarction when at least one value is above the 99th percentile upper reference limit for troponin assay. ??Journal of the [place] [employer] 2012;60:1581-98. Current Interpretive Data Last Revised Date: 2018. Blood specimen (specimen) 12/02/2019 1:24 PM REAL ESTATE AGENCY PRINCIPAL 12/02/2019 1:28 PM REAL ESTATE AGENCY PRINCIPAL Ana Stubbs MD LAB BLOOD ORDERABLES Final R esult [facility] ([place]) 1 [facility] [place] [address] * (ABNORMAL) Protime-INR (12/02/2019 1:24 PM REAL ESTATE AGENCY PRINCIPAL) PT 13.2(H) 9.5 - 13.0 sec [facility] ([place]) INR 1.2 0.9 - 1.2 [facility] ([place]) Comment: Interpretive data Oral anticoagulant therapeutic ranges: Venous thromboembolism prophylaxis or treatment: 2.0-3.0 CARDIOLOGY Standard range: 2.0-3.0 High-intensity range: 2.5-3.5 Refer to indication-specific guidelines for appropriate target ranges for prosthetic heart valve replacement. Current interpretive data was last revised on 2019. Blood specimen (specimen) 12/02/2019 1:24 PM REAL ESTATE AGENCY PRINCIPAL 12/02/2019 1:28 PM REAL ESTATE AGENCY PRINCIPAL us Ana Stubbs MD LAB BLOOD ORDERABLES Final R esult [facility] ([place]) 1 [facility] Department of Laboratories [place], [place] [id number] * Pro B-type natriuretic peptide (12/02/2019 1:24 PM REAL ESTATE AGENCY PRINCIPAL) NT-proBNP 193 <=300 pg/mL [facility] ([place]) Comment: Interpretive [...] Last Revised Date: 2018. Blood specimen (specimen) 12/02/2019 1:24 PM REAL ESTATE AGENCY PRINCIPAL 12/02/2019 1:28 PM REAL ESTATE AGENCY PRINCIPAL Ana Stubbs MD LAB BLOOD ORDERABLES Final R esult Performing Organization Address [facility] de Phone Number [facility] ([place]) 1 [facility] [place] [address] * Magnesium (12/02/2019 1:24 PM REAL ESTATE AGENCY PRINCIPAL) [facility] Magnesium 2.0 1.6 - 2.4 mg/dL [facility] ([place]) Blood specimen (specimen) 12/02/2019 1:24 PM REAL ESTATE AGENCY PRINCIPAL 12/02/2019 1:28 PM REAL ESTATE AGENCY PRINCIPAL Ana Stubbs MD LAB BLOOD ORDERABLES Final R esult Performing Organization Address [facility] de Phone Number [facility] ([place]) 1 [facility] [place] [address] * (ABNORMAL) Comprehensive metabolic panel (12/02/2019 1:24 PM REAL ESTATE AGENCY PRINCIPAL) Sodium 134(L) 135 - 145 mmol/L [facility] ([place]) Potassium, pl 3.7 3.3 - 4.9 mmol/L [facility] ([place]) Chloride 96(L) 97 - 110 mmol/L [facility] ([place]) CO2 25 22 - 32 mmol/L [facility] ([place]) Anion gap 13 2 - 15 mmol/L [facility] ([place]) BUN 17 8 - 25 mg/dL [facility] ([place]) Creatinine 0.68 0.60 - 1.10 mg/dL [facility] ([place]) Glucose 124 70 - 199 mg/dL [facility] ([place]) [...] interpretive data was last revised 2017. Calcium 9.9 8.5 - 10.3 mg/dL [facility] ([place]) Bilirubin, total 0.4 0.1 - 1.2 mg/dL [facility] ([place]) Protein, pl 7.6 6.5 - 8.5 g/dL [facility] ([place]) Albumin 4.5 3.5 - 5.0 g/dL [facility] ([place]) Alk phos 85 40 - 130 Units/L [facility] ([place]) ALT 41 7 - 45 Units/L [facility] ([place]) AST 37 10 - 45 Units/L [facility] ([place]) Comment:Slightly Hemolyzed S pecimen Blood specimen (specimen) 12/02/2019 1:24 PM REAL ESTATE AGENCY PRINCIPAL 12/02/2019 1:28 PM REAL ESTATE AGENCY PRINCIPAL us Ana Stubbs MD LAB BLOOD ORDERABLES Final R esult [facility] ([place]) 1 [facility] Department [place] [address] * (ABNORMAL) CBC with auto differential (12/02/2019 1:24 PM REAL ESTATE AGENCY PRINCIPAL) WBC 8.8 3.8 - 9.9 K/cumm [facility] ([place]) Hgb 11.1(L) 11.9 - 15.5 g/dL [facility] ([place]) Hct 36.9 35.6 - 45.5 % [facility] ([place]) Plt 267 150 - 400 K/cumm [facility] ([place]) MPV 10.5 9.1 - 12.3 fL [facility] ([place]) RBC 4.87 3.90 - 5.20 M/cumm [facility] ([place]) MCV 75.8(L) 81.3 - 96.4 fL [facility] ([place]) MCH 22.8(L) 27.1 - 33.3 pg [facility] ([place]) MCHC 30.1(L) 32.3 - 35.7 g/dL [facility] ([place]) RDW CV 24.1(H) 11.1 - 14.9 % [facility] ([place]) RDW SD 63.5(H) 35.7 - 48.1 fL [facility] ([place]) NRBC abs 0.00 0.00 - 0.01 K/cumm [facility] ([place]) Blood specimen (specimen) 12/02/2019 1:24 PM REAL ESTATE AGENCY PRINCIPAL 12/02/2019 1:28 PM REAL ESTATE AGENCY PRINCIPAL Ana Stubbs MD LAB BLOOD ORDERABLES Final R esult [facility] ([place] 1 [facility] Department [place] [address] * aPTT (12/02/2019 1:24 PM REAL ESTATE AGENCY PRINCIPAL) aPTT 25 25 - 37 sec [facility] ([place]) Comment: Interpretive data Heparin therapeutic range: 60-94 seconds Range based on correlation with therapeutic heparin activity range of 0.3-0.7 units/ml. Current interpretive data was last revised on 2019. Blood specimen (specimen) 12/02/2019 1:24 PM REAL ESTATE AGENCY PRINCIPAL 12/02/2019 1:28 PM REAL ESTATE AGENCY PRINCIPAL us Ana Stubbs MD LAB BLOOD ORDERABLES Final R esult [facility] ([place]) 1 [facility] Department [place] [address] * ECG 12 lead (12/02/2019 1:22 PM REAL ESTATE AGENCY PRINCIPAL) 12/02/2019 1:22 PM REAL ESTATE AGENCY PRINCIPAL Narrative [facility] - 12/02/2019 6:12 PM REAL ESTATE AGENCY PRINCIPAL Vent Rate: 91 bpm RR Interval: 659 msec TX Interval: 168 msec QRS Duration: 99 msec QT Interval: 372 msec QTC Interval: 420 msec P-R-T [place]: 47 - -18 - 91 degrees SINUS RHYTHM ABNORMAL QRS-T ANGLE ??[QRS-T AXIS DIFFERENCE > 60] ABNORMAL ECG Electronically Signed By: Reyes Unger MD Procedure Note Ana Stubbs MD - 12/02/2019 1:07 PM CST HPI Chief Complaint Patient presents with ? ? Thrombophilia Provider in room @ 12:55 PM 12/02/2019 73 y/o F w/ PMHx of HLD, HTN, breast cancer, s/p lumpectomy, bilateralknee replacements (2017), uterine cancer, and s/p hysterectomy (2018)presents with SOB and dyspnea on exertion than began suddenlyapproximately one week ago. Pt was seen by Dr Long yesterday who did aworkup on patient. Pt states her blood work and x-ray came back withinparameters. Pt additionally states Dr. Long ordered pt for a Ct. Ptdenies any CP, BLE swelling, nausea, vomiting, congestion, or fever. Ptfurther denies any symptoms prior to onset. Patient History Patient Active Problem List Diagnosis Date Noted ? ? Encounter for screening colonoscopy 09/29/2019 ? ? Malignant neoplasm of uterus (CMS/HCC) 12/17/2018 ? ? Malignant neoplasm of upper-inner quadrant of left breast in female,estrogen receptor positive (CMS/HCC) 12/17/2018 ? ? Mixed hyperlipidemia 11/28/2017 ? ? Essential hypertension 11/28/2017 ? ? 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 rheumatoidfactor (CMS/HCC) 11/28/2017 ? ? Pre-diabetes 11/28/2017 Past Medical History: Diagnosis Date ? ? HX OTHER MEDICAL B/L arthroscopic knee surg ? ? HX OTHER MEDICAL RA ? ? HX OTHER MEDICAL R knee replacement ? ? HX OTHER MEDICAL blood clot- right leg ? ? Hyperlipidemia Hyperlipidemia ? ? Hypertension Hypertension ? ? Screening mammogram, encounter for 1945 ? ? Uterine cancer ([facility]) 04/2018 Past Surgical History: Procedure Laterality Date ? ? CATARACT EXTRACTION Cataract extraction ? ? HYSTERECTOMY 06/2018 Family History Problem Relation Age of Onset ? ? Heart attack Father Myocardial infarction; ? ? Diabetes Father Diabetes mellitus; ? ? Heart disease Father Heart disease; ? ? Diabetes type II Other Family history of Diabetes -Type 2; ? ? Diabetes Mother Diabetes mellitus; ? ? Other Father's Sister mastectomy. ??CA; Social History Tobacco Use ? ? Smoking status: Never Smoker ? ? Smokeless tobacco: Never Used Substance Use Topics ? ? Alcohol use: No ? ? Drug use: No Social History Patient does not qualify to have social determinant information on file(likely too young). Social History Narrative ? ? Not on file Review of Systems Review of Systems Constitutional: Negative for chills and fever. HENT: Negative for congestion, rhinorrhea and sore throat. Eyes: Negative for pain. Respiratory: Positive for shortness of breath. Negative for cough. Cardiovascular: Negative for chest pain and leg swelling. Gastrointestinal: Negative for abdominal pain, diarrhea, nausea andvomiting. Genitourinary: Negative for difficulty urinating. Musculoskeletal: Negative for myalgias. Skin: Negative for rash. Neurological: Negative for dizziness and headaches. Psychiatric/Behavioral: Negative for behavioral problems. Physical Exam ED Triage Vitals [12/02/19 1257] Temp Pulse Resp BP SpO2 36.4 ??C (97.6 ??F) 95 16 170/88 96 % Temp src Heart Rate Source Patient Position BP Location FiO2 (%) Oral -- -- -- -- Physical Exam Vitals signs and nursing note reviewed. Constitutional: General: She is not in acute distress. Appearance: She is well-developed. HENT: Head: Normocephalic and atraumatic. Eyes: Conjunctiva/sclera: Conjunctivae normal. Neck: Musculoskeletal: Neck supple. Cardiovascular: Rate and Rhythm: Normal rate and regular rhythm. Heart sounds: Normal heart sounds. No murmur. Pulmonary: Effort: Pulmonary effort is normal. No respiratory distress. Breath sounds: Normal breath sounds. Abdominal: General: Bowel sounds are normal. There is no distension. Palpations: Abdomen is soft. Tenderness: There is no tenderness. There is no guarding. Musculoskeletal: Right lower leg: Edema (trace) present. Left lower leg: Edema (trace) present. Skin: General: Skin is warm and dry. Neurological: Mental Status: She is alert and oriented to person, place, and time. [facility] MDM Number of Diagnoses or Management Options PE (pulmonary thromboembolism) ([facility]): Amount and/or Complexity of Data Reviewed Clinical lab tests: ordered and reviewed Tests in the radiology section of CPT??: ordered and reviewed Tests in the medicine section of CPT??: reviewed and ordered Risk of Complications, Morbidity, and/or Mortality Presenting problems: moderate Diagnostic procedures: moderate Management options: moderate General comments: Patient presents with shortness of breath. She has hadextensive workup as an outpatient. She had CT today showing bilateralpulmonary emboli. Her sats are normal. She'll be admitted foranticoagulation and further workup with echocardiogram and transition tooral anticoagulation. Patient Progress Patient progress: stable Vitals: 12/02/19 1257 12/02/19 1345 12/02/19 1430 12/02/19 1630 BP: 170/88 163/88 151/69 164/77 Pulse: 95 88 96 91 Resp: 16 23 25 27 Temp: 36.4 ??C (97.6 ??F) TempSrc: Oral SpO2: 96% 97% 95% 95% Weight: 84.8 kg (187 lb) Height: 170.2 cm (5' 7 ) XR Chest 1 View Final Result No acute findings. Electronically signed by: Saqib Potter M.D. Labs Reviewed CBC WITH AUTO DIFFERENTIAL - Abnormal Result Value WBC 8.8 Hgb 11.1 (*) Hct 36.9 Plt 267 MPV 10.5 RBC 4.87 MCV 75.8 (*) MCH 22.8 (*) MCHC 30.1 (*) RDW CV 24.1 (*) RDW SD 63.5 (*) NRBC abs 0.00 COMPREHENSIVE METABOLIC PANEL - Abnormal Sodium 134 (*) Potassium, pl 3.7 Chloride 96 (*) CO2 25 Anion gap 13 BUN 17 Creatinine 0.68 Glucose 124 Calcium 9.9 Bilirubin, total 0.4 Protein, pl 7.6 Albumin 4.5 Alk phos 85 ALT 41 AST 37 PROTIME-INR - Abnormal PT 13.2 (*) INR 1.2 DIFFERENTIAL AUTO - Abnormal Neutrophil abs 7.5 (*) Imm gran abs 0.0 Lymphocyte abs 0.5 (*) Monocyte abs 0.5 Eosinophil abs 0.1 Basophil abs 0.0 Neutrophil pct 85.4 Imm gran pct 0.2 Lymphocyte pct 6.2 Monocyte pct 6.2 Eosinophil pct 1.5 Basophil pct 0.5 APTT aPTT 25 MAGNESIUM Magnesium 2.0 PRO B-TYPE NATRIURETIC PEPTIDE NT-proBNP 193 TROPONIN T Troponin T <0.01 EGFR GFR 87 ECG 12 lead Date/Time: 12/02/2019 1:43 PM Performed by: Ana Stubbs MD Authorized by: Ana Stubbs MD Rate: ECG rate: 91 Rhythm: Rhythm: sinus rhythm ED Course as of Dec 02 1733 Time: 12/02 1319 Comment: Discussed patient's case with Dr Spear who accepts patientfor admission. By: Frederick Mendoza PE (pulmonary thromboembolism) (CMS/HCC) This note is prepared by Frederick Mendoza, acting as a scribe for Dr. Jerome. I electronically signed this note at 5:34 PM on 12/02/2019. I, Dr. Ana Stubbs, have personally performed the services described inthe documentation , reviewed the documentation, as recorded by the scribein my presence, and it accurately and completely records my words andactions. Ana Stubbs MD 12/02/191811 Ana Stubbs MD ECG ORDERABLES Final Result [facility] documented in this encounter Visit Diagnoses Diagnosis Bilateral pulmonary embolism (CMS/HCC) (HCC)- Primary Other pulmonary embolism and infarction PE (pulmonary thromboembolism) (CMS/HCC) (HCC) Chronic pulmonary embolism Essential hypertension Unspecified essential hypertension Malignant neoplasm of upper-inner quadrant of left breast in female, estrogen receptor positive (HCC) Malignant neoplasm of uterus (CMS/HCC) (HCC) Malignant neoplasm of uterus, part unspecified 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 rheumatoid factor (CMS/HCC) (HCC) Chronic diastolic heart failure (HCC) Chronic diastolic heart failure documented in this encounter Administered Medications Inactive Administered Medications - up to 3 most recent administrations Medication Order MAR Action Action Date Dose Rate Site apixaban (ELIQUIS) tablet 10 mg 10 mg, oral, 2 times daily, First dose on Sun12/02/19 at 2100, For 7 days, Nurse to discontinue heparin infusion order and associated bolus at first administration of apixaban using ? order condition met? order source, Indications: deep venous thrombosisIndications:deep venous thrombosis Given 12/03/2019 9:07 AM REAL ESTATE AGENCY PRINCIPAL 10 mg Given 12/02/2019 9:02 PM REAL ESTATE AGENCY PRINCIPAL 10 mg apixaban (ELIQUIS) tablet 5 mg 5 mg, oral, 2 times daily, First dose on Sun12/09/19 at 2100, Nurse to discontinue heparin infusion order and associated bolus at first administration of apixaban using ? order condition met? order source, Indications: deep venous thrombosisIndications:deep venous thrombosis enoxaparin (LOVENOX) syringe 80 mg 80 mg (rounded from 84.8 mg = 1 mg/kg ? 84.8 kg), subcutaneous, Every 12 hours scheduled, First dose on Sun12/02/19 at 1330, Indications: thrombophiliaIndications:throm bophilia Given 12/02/2019 1:34 PM REAL ESTATE AGENCY PRINCIPAL 80 mg Right Lower Abdomen hydroCHLOROthiazide (HYDRODIURIL) tablet 12.5 mg 12.5 mg, oral, Daily, First dose on Sun12/03/19 at 0900 Given 12/03/2019 9:07 AM REAL ESTATE AGENCY PRINCIPAL 12.5 mg losartan (COZAAR) tablet 100 mg 100 mg, oral, Daily, First dose on Sun12/03/19 at 0900 Given 12/03/2019 9:07 AM REAL ESTATE AGENCY PRINCIPAL 100 mg methotrexate tablet 12.5 mg 12.5 mg, oral, Every 7 days, First dose on Sun12/03/19 at 0900, Indications: Rheumatoid ArthritisIndications:Rheumatoi d Arthritis Given 12/03/2019 11:12 AM REAL ESTATE AGENCY PRINCIPAL 12.5 mg documented in this encounter Discontinued Medications Medication Sig Discontinue Reason Start Date End Da te carvedilol (COREG) 6.25 mg tablet Take 1 tablet (6.25 mg total) by mouth 2 (two) times a day with meals Stop Taking at Discharge 12/03/2019 12/03/2019 apixaban (ELIQUIS) 5 mg tabletIndications:Veno us Thrombosis Take 1 tablet (5 mg total) by mouth 2 (two) times a day Stop Taking at Discharge 01/08/2020 12/03/2019 documented as of this encounter Historical Medications * This list may reflect changes made after this encounter. diphenhydrAMINE-a cetaminophen (TYLENOL PM) 25-500 mg tablet Take 1 tablet by mouth nightly as needed for sleep 12/09/2019 added in this encounter Active and Recently Administered Medications Times are shown in REAL ESTATE AGENCY PRINCIPAL. Scheduled Medication Order 12/01/2019 12/02/2019 12/03/2019 apixaban (ELIQUIS) tablet 10 mg(Linked Group 1) 10 mg, oral, 2 times daily, First dose on Sun12/02/19 at 2100, For 7 days, Nurse to discontinue heparin infusion order and associated bolus at first administration of apixaban using ? order condition met? order source, Indications: deep venous thrombosis 2101 (Given - Provider: Daisy Jasso, TAO) 0907 (Given - Provider: Portia Gallegos, TAO) apixaban (ELIQUIS) tablet 5 mg(Linked Group 1) 5 mg, oral, 2 times daily, First dose on Sun12/09/19 at 2100, Nurse to discontinue heparin infusion order and associated bolus at first administration of apixaban using ? order condition met? order source, Indications: deep venous thrombosis enoxaparin (LOVENOX) syringe 80 mg (CANCELED) 80 mg (rounded from 84.8 mg = 1 mg/kg ? 84.8 kg), subcutaneous, Every 12 hours scheduled, First dose on Sun12/02/19 at 1330, Indications: thrombophilia 1334 (Given - Provider: Krista Liu, TAO) hydroCHLOROthiazide (HYDRODIURIL) tablet 12.5 mg(Linked Group 2) 12.5 mg, oral, Daily, First dose on Sun12/03/19 at 0900 0907 (Given - Provid er: Portia Gallegos RN) letrozole (FEMARA) tablet 2.5 mg 2.5 mg, oral, Daily, First dose on Sun12/03/19 at 0900, For 15 days 1144 (Not Given - Provider: Portia Gallegos RN - Reason: Medication not available) losartan (COZAAR) tablet 100 mg(Linked Group 2) 100 mg, oral, Daily, First dose on Sun12/03/19 at 0900 0907 (Given - Provid er: Portia Gallegos RN) methotrexate tablet 12.5 mg 12.5 mg, oral, Every 7 days, First dose on Sun12/03/19 at 0900, Indications: Rheumatoid Arthritis 1112 (Given - Provid er: Portia Gallegos RN) Linked Groups Order Group 1: apixaban (ELIQUIS) tablet 10 mgJump to med 10 mg, oral, 2 times daily, First dose on Sun12/02/19 at 2100, For 7 days, Nurse to discontinue heparin infusion order and associated bolus at first administration of apixaban using ? order condition met? order source, Indications: deep venous thrombosis Followed by apixaban (ELIQUIS) tablet 5 mgJump to med 5 mg, oral, 2 times daily, First dose on Sun12/09/19 at 2100, Nurse to discontinue heparin infusion order and associated bolus at first administration of apixaban using ? order condition met? order source, Indications: deep venous thrombosis Group 2: losartan (COZAAR) tablet 100 mgJump to med 100 mg, oral, Daily, First dose on Sun12/03/19 at 0900 And hydroCHLOROthiazide (HYDRODIURIL) tablet 12.5 mgJump to med 12.5 mg, oral, Daily, First dose on Sun12/03/19 at 0900 documented in this encounter Orders Medications Ordered That Álvaro ht Not Have Been Administered Count Last Ordered Date First Ordered Date apixaban (ELIQUIS) tablet 5 mg 1 12/02/2019 enoxaparin (LOVENOX) syringe 80 mg 1 2019 letrozole (FEMARA) tablet 2.5 mg 12/02/19 losartan-hydroCHLOROthiazide (HYZAAR) 100-12.5 mg per tablet 1 tablet 1 12/02/2019 Diet Count Last Ordered Date First Orde red Date ADULT DISCHARGE DIET 1 12/03/2019 Nursing Count Last Ordered Date First Orde red Date DISCHARGE ACTIVITY 1 12/03/2019 DISCHARGE CALL PROVIDER 1 12/03/2019 FOLLOW UP PRIMARY PHYSICIAN 1 12/03/2019 WEIGH PATIENT 1 12/02/2019 CORE MEASURES Count Last Ordered Date First Ord ered Date REASON FOR NO VTE PROPHYLAXIS AT ADMISSION 1 12/02/2019 ADT Patient Update Count Last Ordered Date Firs t Ordered Date ED IP DECISION TO ADMIT 1 12/02/2019 documented in this encounter Care Teams Base Draw Operator Relationship Specialty Start Date End Date Inez Long MD PCP - General 02/23/17 05/15/22 Neil Ag MD PhD [address] [place] [address] Radiation Oncologist Radiation Oncology 12/17/18 [place] [id number] [place], [place] [id number] Referring Physician General Surgery 12/17/18 [place] [id number] [place], [place] [id number] Medical Oncologist/Service Advisor Medical Oncology 12/17/18 documented as of this encounter
--- OUTSIDE RECORDS SUMMARY | 2024-11-16 13:08 | XMS_ITS | Encounter Summary ---
Author Organization [facility] Medical Group Address [address] [place] [address] Care Team Providers Care Air Control/Anti Air Warfare Officer Name Role Phone Francisco Long MD Primary Care Provider [phone] Neil Ag MD PhD Unavailable [phone] Ita estrada MD Unavailable Caron Mohan MD Unavailable [phone] Encounter Details Date Type Department Care Team (Late st Contact Info) Description 12/15/2019 Telephone [facility] [address] 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 Gender Identity Not on file Sexual Orientation Not on file documented as of this encounter Miscellaneous Notes * Telephone Encounter - Jami Pettit MA - 12/15/2019 8:34 AM SHRINKING MACHINE OPERATOR Patient aware NKING MACHINE OPERATOR * Telephone Encounter - Jami Pettit MA - 12/15/2019 8:33 AM SHRINKING MACHINE OPERATOR ----- Message from Francisco Long MD sent at 12/15/2019 6:47 AM SHRINKING MACHINE OPERATOR ----- Each Doppler test shows no blood clots in the legs okay to leave a message Doppler test shows no blood clots in the legs NKING MACHINE OPERATOR NKING MACHINE OPERATOR documented in this encounter Plan of Treatment Not on file documented as of this encounter Visit Diagnoses Not on filedocumented in this encounter Care Teams Air Control/Anti Air Warfare Officer Relationship Specialty Start Date End Date Francsico Long MD PCP - General 02/23/17 05/15/22 Neil Ag MD PhD [address] [place] [address] Radiation Oncologist Radiation Oncology 12/17/18 [place] [address] [place] [address] Referring Physician General Surgery 12/17/18 [place] [id number] [employer], [place] [id number] Medical Oncologist/Director Of Digital Technology Medical Oncology 12/17/18 documented as of this encounter
--- OUTSIDE RECORDS SUMMARY | 2024-11-16 13:08 | XMS_ITS | Encounter Summary ---
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 Gender Identity Not on file Sexual Orientation Not on file documented as of this encounter Plan of Treatment Not on file documented as of this encounter Visit Diagnoses Not on filedocumented in this encounter Care Teams Land Agent Relationship Specialty Start Date End Date Francisco Long MD PCP - General 02/23/17 05/15/22 Neil Ag MD PhD [address] [place] [address] Radiation Oncologist Radiation Oncology 12/17/18 [place] [address] [facility] [address] [place] [address] Referring Physician General Surgery 12/17/18 [place] [address] [facility] [address] [place] [address] Medical Oncologist/Logistics Team Leader Medical Oncology 12/17/18 documented as of this encounter
--- OUTSIDE RECORDS SUMMARY | 2024-11-16 13:08 | XMS_ITS | Encounter Summary ---
Author Organization [facility] Healthcare Address [address] [place] [address] Care Team Providers Care Slipper Maker Name Role Phone Francisco Long MD Primary Care Provider [phone] Neil Ag MD PhD Unavailable [phone] Ita Vazquez MD Unavailable Caron Mohan MD Unavailable Encounter Details Date Type Department Care Team (Late st Contact Info) Description 12/01/2019 3:30 PM PROJECT FACILITATOR [address] [address] Social History Tobacco Use Types Packs/Day Years Used Date Smoking Tobacco: Never Smokeless Tobacco: Never Alcohol Use Standard Drinks/Week Comments No 0 (1 standard drink = 0.6 oz pur e alcohol) PHQ-2 Answer Date Recorded PHQ-2 Score 0 07/17/2019 Comments Unknown Sex and Gender Information Value Date Recorded Sex Assigned at Not on file 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 PROJECT FACILITATOR Gender Identity Not on file Sexual Orientation Not on file documented as of this encounter Plan of Treatment Not on file documented as of this encounter Visit Diagnoses Not on filedocumented in this encounter Care Teams Slipper Maker Relationship Specialty Start Date End Date Francisco Long MD PCP - General 02/23/17 05/15/22 Neil Ag MD PhD [address] [place] [address] Radiation Oncologist Radiation Oncology 12/17/18 [place] [address] [facility] [[email or web address] [address] [id number] Referring Physician General Surgery 12/17/18 [place] [address] [address] [facility] [[email or web address]] [address] [address] Medical Oncologist/Comfort Station Attendant Medical Oncology 12/17/18 documented as of this encounter
--- OUTSIDE RECORDS SUMMARY | 2024-11-16 13:08 | XMS_ITS | Encounter Summary ---
Author Organization [facility] Medical Group Address [address] [place] [address] Care Team Providers Care Electronic Train Control Technician Name Role Phone Inez Long MD Primary Care Provider [phone] Neil Ag MD PhD Unavailable [phone] Ita Vazquez MD Unavailable Caron Mohan MD Unavailable Reason for Referral * Diagnostic Imaging (Routine) - Closed Specialty Diagnoses / Procedures Referred By Halima t Referred To Contact Diagnoses Pulmonary embolism, unspecified chronicity, unspecified pulmonary embolism type, unspecified whether acute cor pulmonale present (HCC) Procedures US Vein Duplex Lower Extremity Bilateral Complete Inez Long MD Phone: tel: fax: [facility] [address] [place] [address] Referral ID Status Reason Start Date Expiration Date Visits Re quested Visits Authorized [id number] Closed 12/09/2019 06/19/2021 1 1 ARY HISTORIAN Encounter Details Date Type Department Care Team (Late st Contact Info) Description 12/09/2019 Orders Only [facility] [address] [facility] [address] [place] [id number] Inez Long MD [address] [place] [address] [address] [place] [address] Pulmonary embolism, unspecified chronicity, unspecified pulmonary embolism type, unspecified whether acute cor pulmonale present (CMS/HCC) (Primary Dx) Social History Tobacco Use [...] on file 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 HISTORIAN Gender Identity Not on file Sexual Orientation Not on file documented as of this encounter Plan of Treatment Not on file documented as of this encounter Results * US Vein Duplex Lower Extremity Bilateral Complete (12/11/2019 3:05 PM LIBRARY HISTORIAN) Anatomical Region Laterality Modality Vascular Bilateral Ultrasound 12/11/2019 4:04 PM LIBRARY HISTORIAN Addenda Addendum by Saqib Potter MD on 12/30/2019 4:06 PM LIBRARY HISTORIAN This addendum supersedes the initial report. Spectral Doppler sonographic evaluation not performed. Electronically signed by: Saqib Potter M.D. Impressions 12/11/2019 4:05 PM LIBRARY HISTORIAN Negative for lower extremity deep venous thrombosis. Electronically signed by: Saqib Potter M.D. Narrative 12/11/2019 4:05 PM LIBRARY HISTORIAN EXAMINATION: US VEIN DUPLEX LOWER EXTREMITY BILATERAL COMPLETE ORDERING HEALTHCARE PROVIDER: INEZ LONG HISTORY: Other pulmonary embolism without acute cor pulmonale. Pulmonary embolism unspecified chronicity. ??Right lower extremity chronic DVT 2015 and popliteal and posterior tibial veins. ??Blood clots in lungs seen on CT Sunday last week. COMPARISON: None available TECHNIQUE: Grayscale, color and spectral Doppler sonographic evaluation of the bilateral lower extremity deep venous systems from the common femoral to the popliteal vein with compression and augmentation. FINDINGS: Right: There is no evidence of thrombosis in the interrogated deep venous system of the right lower extremity. Left: There is no evidence of thrombosis in the interrogated deep venous system of the left lower extremity. Procedure Note Saqib Potter MD - 12/11/2019 EXAMINATION: US VEIN DUPLEX LOWER EXTREMITY BILATERAL [...] the popliteal vein with compression and augmentation. FINDINGS: Right: There is no evidence of thrombosis in the interrogated deep venous system of the right lower extremity. Left: There is no evidence of thrombosis in the interrogated deep venous system of the left lower extremity. IMPRESSION: Negative for lower extremity deep venous thrombosis. Electronically signed by: Saqib Potter M.D. Inez Long MD [facility] PROCEDURES Edited Resul t - Final documented in this encounter Visit Diagnoses Diagnosis Pulmonary embolism, unspecified chronicity, unspecified pulmonary embolism type, unspecified whether acute cor pulmonale present (HCC)- Primary Pulmonary embolism, unspecified chronicity, unspecified pulmonary embolism type, unspecified whether acute cor pulmonale present (HCC) documented in this encounter Care Teams Electronic Train Control Technician Relationship Specialty Start Date End Date Inez Long MD PCP - General 02/23/17 05/15/22 Neil Ag MD PhD [address] [place] [address] Radiation Oncologist Radiation Oncology 12/17/18 [place] [address] [facility] [address] [place] [address] Referring Physician General Surgery 12/17/18 [place] [address] [facility] [address] [place] [address] Medical Oncologist/Artillery Meteorological Man Medical Oncology 12/17/18 documented as of this encounter
--- OUTSIDE RECORDS SUMMARY | 2024-11-16 13:08 | XMS_ITS | Encounter Summary ---
Author Organization [facility] Address [address] [place] [address] Care Team Providers Care Lithographic Proofer Name Role Phone Francisco Long MD Primary Care Provider Neil Ag MD PhD Unavailable [phone] Ita Vazquez MD Unavailable Caron Mohan MD Unavailable [phone] Marleni Chiu MA Unavailable [phone] Encounter Details Date Type Department Care Team (Late st Contact Info) Description 12/01/2019 Orders Only [facility] [address] [facility] [address] [place] [address] Francisco Long MD [address] [place] [address] [address] [place] [address] Shortness of breath (Primary Dx) Social History Tobacco Use Types [...] on file 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 Gender Identity Not on file Sexual Orientation Not on file documented as of this encounter Plan of Treatment Not on file documented as of this encounter Visit Diagnoses Diagnosis Shortness of breath- Primary documented in this encounter Care Teams Lithographic Proofer Relationship Specialty Start Date End Date Francisco Long MD PCP - General 02/23/17 05/15/22 Neil Ag MD PhD [address] [place] [address] Radiation Oncologist Radiation Oncology 12/17/18 [place] [address] [address] [address] [place], [place] [id number] Referring Physician General Surgery 12/17/18 [place] [address] [facility] [address] [place], [place] [id number] Medical Oncologist/Plush Finisher Medical Oncology 12/17/18 Marleni Chiu MA [address] [place] [address] [address] [place] [address] ACO Care Supervisor Volunteer Services 12/04/19 12/04/19 documented as of this encounter
--- OUTSIDE RECORDS SUMMARY | 2024-11-16 13:08 | XMS_ITS | Encounter Summary ---
Author Organization [facility] Address [address] [facility] [address] [place] [address] Care Team Providers Care Packaging Line Attendant Name Role Phone Francisco Long MD Primary Care Provider [phone] Neil Ag MD PhD Unavailable [phone] Ita Vazquez MD Unavailable Caron Mohan MD Unavailable Reason for Visit * Reason Comments Hospital Follow Up PE Encounter Details Date Type Department Care Team (Late st Contact Info) Description 12/09/2019 1:00 PM RESTAURANT SHIFT SUPERVISOR Office Visit [facility] [address] [facility] [address] [place] [address] Francisco Long MD [address] [place] [address] [address] [place] [address] Bilateral pulmonary embolism (CMS/HCC) (Primary Dx); BMI 28.0-28.9,adult; Essential hypertension Social History Tobacco Use Types Packs/Day Years [...] on file 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 RESTAURANT SHIFT SUPERVISOR Gender Identity Not on file Sexual Orientation Not on file documented as of this encounter Last Filed Vital Signs Vital Sign Reading Time Taken Comments Blood Pressure 122/74 12/09/2019 12:51 PM RESTAURANT SHIFT SUPERVISOR Pulse 79 12/09/2019 12:51 PM RESTAURANT SHIFT SUPERVISOR Temperature 36.4 ??C (97.6 ??F) 12/09/2019 12:[address] Respiratory Rate 16 12/09/2019 12:51 PM RESTAURANT SHIFT SUPERVISOR Oxygen Saturation - - Inhaled Oxygen Concentration - - Weight 83.9 kg (185 lb) 12/09/2019 12:51 PM RESTAURANT SHIFT SUPERVISOR Height 170.2 cm (5' 7 ) 12/09/2019 12:51 PM RESTAURANT SHIFT SUPERVISOR Body Mass Index 28.98 12/09/2019 12:51 PM RESTAURANT SHIFT SUPERVISOR documented in this encounter Ordered Prescriptions Prescription Sig Dispense Quantity Refills Last Filled Start Date End Date carvedilol (COREG) 6.25 mg tablet Take 1 tablet (6.25 mg total) by mouth 2 (two) times a day with meals 180 tablet 3 12/09/2019 12/23/2020 apixaban (ELIQUIS) 5 mg tabletIndications: deep venous thrombosis Take 1 tablet (5 mg total) by mouth 2 (two) times a day 180 tablet 3 12/09/2019 03/09/2021 carvedilol (COREG) 6.25 mg tablet Take 1 tablet (6.25 mg total) by mouth 2 (two) times a day with meals 180 tablet 3 12/09/2019 12/09/2019 apixaban (ELIQUIS) 5 mg tabletIndications: deep venous thrombosis Take 1 tablet (5 mg total) by mouth 2 (two) times a day 180 tablet 3 12/09/2019 12/09/2019 documented in this encounter Progress Notes * Francisco Long MD - 12/09/2019 1:00 PM CST Subjective/Objective Patient ID: Jolene Xiomy Cedillo is a 73 y.o. female. Chief Complaint Hospital Follow Up (PE ) HPI Patient is returns today with [place] she had a previous deep venous thrombosis following surgical procedure several years ago she has history of breast cancer and uterine cancer She has had no recent travel no periods his inactivity Review of Systems Vitals: 12/09/19 1251 BP: 122/74 Pulse: 79 Resp: 16 Temp: 36.4 ??C (97.6 ??F) Weight: 83.9 kg (185 lb) Height: 170.2 cm (5' 7 ) Physical Exam She is pleasant no distress lungs are clear without rales rhonchi or wheezes cardiovascular regularwithout murmurs gallops clicks rubs abdomen soft nontender extremities reveal no edema no cords Homans signs negative Assessment/Plan Diagnoses and all orders for this visit: Bilateral pulmonary embolism (CMS/HCC) (Primary) BMI 28.0-28.9,adult Essential hypertension Other orders - apixaban (ELIQUIS) 5 mg tablet; Take 1 tablet (5 mg total) by mouth 2 (two) times a day - carvedilol (COREG) 6.25 mg tablet; Take 1 tablet (6.25 mg total) by mouth 2 (two) times a day with meals Blood pressure is doing fine with current therapy continue same she will continue the Eliquis 5 mg twice daily indefinitely because of her recurrent episodes of blood clot She is doing fine with current medications continue same see back in a month Risk benefits of long-term anticoagulation therapy discussed with her if there is any problems with insurance coverage on this medication let us know so we can make adjustments we talked about the risk benefits of warfarin therapy as well and they would like to stay on Eliquis for at all possible Side effects, risks, interactions reviewed with patient. Indications for testing discussed. Any further problems to contact us. She was told what to look out for and verbalized understanding. The patient was given the opportunity to have all questions answered today and was in agreement with the plan of care. AURANT SHIFT SUPERVISOR documented in this encounter Plan of Treatment Not on file documented as of this encounter Visit Diagnoses Diagnosis Bilateral pulmonary embolism (CMS/HCC) (HCC)- Primary Other pulmonary embolism and infarction BMI 28.0-28.9,adult Essential hypertension Unspecified essential hypertension documented in this encounter Discontinued Medications Medication Sig Discontinue Reason Start Date End Da te apixaban (ELIQUIS) 5 mg tabletIndications:deep venous thrombosis Take 2 tablets (10 mg total) by mouth 2 (two) times a day for 12 doses 12/03/2019 12/09/2019 apixaban (ELIQUIS) 5 mg tabletIndications:deep venous thrombosis Take 1 tablet (5 mg total) by mouth 2 (two) times a day Reorder 12/09/2019 12/09/2019 carvedilol (COREG) 6.25 mg tablet Take 1 tablet (6.25 mg total) by mouth 2 (two) times a day with meals Reorder 12/03/2019 12/09/2019 apixaban (ELIQUIS) 5 mg tabletIndications:deep venous thrombosis Take 1 tablet (5 mg total) by mouth 2 (two) times a day Reorder 12/09/2019 12/09/2019 carvedilol (COREG) 6.25 mg tablet Take 1 tablet (6.25 mg total) by mouth 2 (two) times a day with meals Reorder 12/09/2019 12/09/2019 diphenhydrAMINE-acetamin ophen (TYLENOL PM) 25-500 mg tablet Take 1 tablet by mouth nightly as needed for sleep 12/09/2019 iron,carbonyl-vitamin C 65 mg iron- 125 mg tablet,delayed release (DR/EC) Take by mouth daily 12/09/2019 documented as of this encounter Care Teams Packaging Line Attendant Relationship Specialty Start Date End Date Francisco Long MD PCP - General 02/23/17 05/15/22 Neil Ag MD PhD [address] [place] [address] Radiation Oncologist Radiation Oncology 12/17/18 [place] [address] [facility] [address] [place] [address] Referring Physician General Surgery 12/17/18 [place] [address] [facility] [address] [place] [address] Medical Oncologist/Assistant Nurse Manager Medical Oncology 12/17/18 documented as of this encounter
--- OUTSIDE RECORDS SUMMARY | 2024-11-16 13:08 | XMS_ITS | Encounter Summary ---
Author Organization [facility] Healthcare Address [address] [place] [address] Care Team Providers Care Data Typist Name Role Phone Inez Long MD Primary Care Provider [phone] Neil Ag MD PhD Unavailable [phone] Ita Vazquez MD Unavailable Caron Mohan MD Unavailable [phone] Reason for Visit * Diagnostic Imaging (Emergency) - Closed Specialty Diagnoses / Procedures Referred By Contlaura t Referred To Contact Radiology Diagnoses Abnormal blood gases Cough Pulmonary embolism, unspecified chronicity, unspecified pulmonary embolism type, unspecified whether acute cor pulmonale present (HCC) Procedures CT Chest PE W Contrast CT Chest W Contrast Inez Long MD Phone: tel: fax: [address] [address] Referral ID Status Reason Start Date Expiration Date Visits Re quested Visits Authorized [id number] Closed 12/02/2019 06/12/2021 1 1 Encounter Details Date Type Department Care Team (Latest Contact Info) Description 12/02/2019 11:00 AM DIRECTOR OF ANESTHESIA SERVICES - 12/02/2019 12:49 PM DIRECTOR OF ANESTHESIA SERVICES Hospital Encounter [facility] [address] [place] [address] Inez Long MD [address] [place] [address] Abnormal blood gases; Cough; Pulmonary embolism, unspecified chronicity, unspecified pulmonary embolism type, unspecified whether acute cor pulmonale present ([facility]) Discharge Disposition: Discharge to home or self [...] 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 DIRECTOR OF ANESTHESIA SERVICES Gender Identity Not on file Sexual [...] tablet 12/09/2019 0 apixaban (ELIQUIS) 5 mg tabletIndication s:Venous Thrombosis Take 1 tablet (5 mg total) by mouth 2 (two) times a day 60 tablet 10 01/08/2020 0 carvedilol (COREG) 6.25 mg tablet Take 1 tablet (6.25 mg total) by mouth 2 (two) times a day with meals 60 tablet 12/03/2019 0 carvedilol (COREG) 6.25 mg tablet Take 1 tablet (6.25 mg total) by mouth 2 (two) times a day with meals 60 tablet 10 12/03/2019 0 iron,carbonyl-vi tamin C 65 mg iron- 125 mg tablet,delayed release (DR/EC) Take by mouth daily 0 losartan-hydroCH LOROthiazide (HYZAAR) 100-12.5 mg per tablet TAKE 1 TABLET BY MOUTH DAILY 90 tablet 3 09/30/2019 0 methotrexate 2.5 mg tablet Take 12.5 mg by mouth every 7 days sunday 3 10/30/2018 0 documented as of this encounter Discharge Disposition Disposition Code Departure Means Destination Discharge to home or self care documented in this encounter Plan of Treatment Not on file documented as of this encounter Procedures Procedure Name Priority Date/Time Associated Diagnosis Comments CT CHEST PE W CONTRAST STAT 12/02/2019 12:20 PM DIRECTOR OF ANESTHESIA SERVICES Abnormal blood gases Cough Pulmonary embolism, unspecified chronicity, unspecified pulmonary embolism type, unspecified whether acute cor pulmonale present ([facility]) documented in this encounter Results * CT Chest PE W Contrast (12/02/2019 12:20 PM DIRECTOR OF ANESTHESIA SERVICES) Anatomical Region Laterality Modality Body N/A Computed Tomogra phy 12/02/2019 12:2 3 PM DIRECTOR OF ANESTHESIA SERVICES Addenda Addendum by Saqib Potter MD on 12/05/2019 10:18 AM DIRECTOR OF ANESTHESIA SERVICES This addendum supersedes the initial report dated 12/02/2019. IMPRESSION: 3. ??There is a left breast mass which may correspond with the cyst reported on ultrasound from 09/11/2018 but should be further evaluated mammographically. Electronically signed by: Saqib Potter M.D. Impressions 12/02/2019 12:37 PM DIRECTOR OF ANESTHESIA SERVICES 1. ??Bilateral pulmonary embolus with moderate clot burden. Borderline right heart strain. ??No pulmonary infarct. 2. ??Additional findings as above. Electronically signed by: Saqib Potter M.D. Narrative 12/02/2019 12:37 PM DIRECTOR OF ANESTHESIA SERVICES EXAMINATION: CT CHEST PE W CONTRAST ORDERING HEALTHCARE PROVIDER: INEZ LONG HISTORY: PE suspected, high pretest prob. Cough for 3 weeks, sob started 1 week ago, history of left lumpectomy ?? COMPARISON: None available TECHNIQUE: CT chest by PE protocol with the uneventful intravenous administration of 125 mL Optiray 350. 3D volumetric MIP was reviewed. Automated exposure control was used as a dose optimization technique for this examination. FINDINGS: There are bilateral pulmonary emboli seen in all lung lobes. ??Moderate clot burden with ventricular ratio at the upper limits of normal at 0.9. ??There is no pulmonary infarct. ??I could not reach the ordering provider by telephone, so the patient was sent to the emergency department and I notified the ER physician. ??The heart is normal in size. ??There is no pericardial effusion. There is a large sliding-type esophageal hiatal hernia. ??No mediastinal or hilar lymph node enlargement is seen by size criteria. A nodular density in the left breast would be better evaluated mammographically. There is mild diffuse thickening of the adrenal glands. ??There are transverse colonic diverticula. 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 Critical result message with acuity critical has been communicated to ordering provider via the [employer] Critical Result tracking system. Status of follow up communication is recorded in [employer]. Procedure Note Saqib Potter MD - 12/02/2019 EXAMINATION: CT CHEST PE W CONTRAST ORDERING HEALTHCARE PROVIDER: INEZ LONG HISTORY: PE suspected, high pretest prob. Cough for 3 weeks, sob started 1 week ago, history of left lumpectomy COMPARISON: None available TECHNIQUE: CT chest by PE protocol with the uneventful intravenous administration of 125 mL Optiray 350. 3D volumetric MIP was reviewed. Automated exposure control was used as a dose optimization technique for this examination. FINDINGS: There are bilateral pulmonary emboli seen in all lung lobes. Moderate clot burden with ventricular ratio at the upper limits of normal at 0.9. There is no pulmonary infarct. I could not reach the ordering provider by telephone, so the patient was sent to the emergency department [...] been communicated to ordering provider via the [employer] Critical Result tracking system. Status of follow up communication is recorded in [employer]. IMPRESSION: 1. Bilateral pulmonary embolus with moderate clot burden. Borderline right heart strain. No pulmonary infarct. 2. Additional findings as above. Electronically signed by: Saqib Potter M.D. Inez Long MD IMG CT PROCEDURES Edited Resul t - Final documented in this encounter Visit Diagnoses Diagnosis Abnormal blood gases Cough Pulmonary embolism, unspecified chronicity, unspecified pulmonary embolism type, unspecified whether acute cor pulmonale present (HCC) documented in this encounter Administered Medications Inactive Administered Medications - up to 3 most recent administrations Medication Order MAR Action Action Date Dose Rate Site ioversol (OPTIRAY 350) syringe syringe 125 mL 125 mL, intravenous, Once in imaging, contrast, Starting on 12/02/19 at 1153, For 1 dose Given 12/02/2019 12:10 PM DIRECTOR OF ANESTHESIA SERVICES 125 mL documented in this encounter Orders Medications Ordered That Álvaro ht Not Have Been Administered Count Last Ordered Date First Ordered Date ioversol (OPTIRAY 350) syrin ge syringe 125 mL 1 12/02/2019 documented in this encounter Care Teams Data Typist Relationship Specialty Start Date End Date Inez Long MD PCP - General 02/23/17 05/15/22 Neil Ag MD PhD [address] [place] [address] Radiation Oncologist Radiation Oncology 12/17/18 [place] [address] [facility] [address] [place], [place] [id number] Referring Physician General Surgery 12/17/18 [place] [address] [facility] [address] [place], [place] [id number] Medical Oncologist/Engineering Executive Medical Oncology 12/17/18 documented as of this encounter
--- OUTSIDE RECORDS SUMMARY | 2024-11-16 13:08 | XMS_ITS | Encounter Summary ---
Author Organization [facility] Address [address] [facility] [address] [place] [address] Care Team Providers Care Sign Out Clerk Name Role Phone Francisco Long MD Primary Care Provider [phone] Neil Ag MD PhD Unavailable Ita Vazquez MD Unavailable Caron Mohan MD Unavailable Marleni Chiu MA Unavailable Encounter Details Date Type Department Care Team (Late st Contact Info) Description 12/04/2019 Telephone [facility] [address] [facility] [address] [place] [address] Jami Pettit MA Social History [...] on file 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 CRUSHER PLANT OPERATOR Gender Identity Not on file Sexual Orientation Not on file documented as of this encounter Miscellaneous Notes * Telephone Encounter - Jami Pettit MA - 12/04/2019 8:40 AM CRUSHER PLANT OPERATOR LMOM to call office. Dr Long wants to see patient in office This week on Sunday or next week on Sunday Follow up ER for bilateral PE HER PLANT OPERATOR documented in this encounter Plan of Treatment Not on file documented as of this encounter Visit Diagnoses Not on filedocumented in this encounter Care Teams Sign Out Clerk Relationship Specialty Start Date End Date Francisco Long MD PCP - General 02/23/17 05/15/22 Neil Ag MD PhD [address] [place] [address] Radiation Oncologist Radiation Oncology 12/17/18 [place] [address] [facility] [address] [place] [address] Referring Physician General Surgery 12/17/18 [place] [address] [facility] [address] [place] [address] Medical Oncologist/Supervisor Cured Meats Medical Oncology 12/17/18 Marleni Chiu MA [address] [place] [address] [address] [place] [address] ACO Care Stock Layer 12/04/19 12/04/19 documented as of this encounter
--- OUTSIDE RECORDS SUMMARY | 2024-11-16 13:08 | XMS_ITS | Encounter Summary ---
Author Organization [facility] Facility Care Team Providers Care Corrugator Operator Name Role Phone Francisco Long MD Primary Care Provider [phone] Neil Ag MD PhD Unavailable [phone] Ita Vazquez MD Unavailable Caron Mohan MD Unavailable [phone] Encounter Details Date Type Department Care Team (Latest Contact Info) Description 12/02/2019 Travel Social History Tobacco Use Types Packs/Day Years Used Date Smoking Tobacco: Never Smokeless Tobacco: Never Alcohol Use Standard Drinks/Week Comments No 0 (1 standard drink = 0.6 oz pur e alcohol) PHQ-2 Answer Date Recorded PHQ-2 Score 0 07/17/2019 Comments Unknown Sex and Gender Information Value Date Recorded Sex Assigned at Not on file 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 SERVICE DELIVERY SUPERVISOR Gender Identity Not on file Sexual Orientation Not on file documented as of this encounter Plan of Treatment Not on file documented as of this encounter Visit Diagnoses Not on filedocumented in this encounter Care Teams Corrugator Operator Relationship Specialty Start Date End Date Francisco Long MD PCP - General 02/23/17 05/15/22 Neil Ag MD PhD [address] [place] [address] Radiation Oncologist Radiation Oncology 12/17/18 [place] [address] [address] Referring Physician General Surgery 12/17/18 [place] [address] [address] [address] [address] Medical Oncologist/Data Manager Medical Oncology 12/17/18 documented as of this encounter
--- OUTSIDE RECORDS SUMMARY | 2024-11-16 13:08 | XMS_ITS | Encounter Summary ---
Author Organization [facility] Healthcare Address [address] [place] [address] Care Team Providers Care Courier Driver Name Role Phone Francisco Long MD Primary Care Provider Neil Ag MD PhD Unavailable Ita Vazquez MD Unavailable Caron Mohan MD Unavailable Encounter Details Date Type Department Care Team (Latest Contact Info) Description 12/01/2019 3:00 PM PERSONAL CARE SERVICE PROVIDER - 12/01/2019 11:59 PM PERSONAL CARE SERVICE PROVIDER Hospital Encounter [facility] Res[facility] [address] [place] [address] Francisco Long MD [address] [place] [address] Discharge Disposition: Discharge to home or self [...] on file 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 PERSONAL CARE SERVICE PROVIDER Gender Identity Not on file Sexual Orientation Not on file documented as of this encounter Medications at Time of Discharge letrozole (FEMARA) 2.5 mg tablet Take 1 tablet (2.5 mg total) by mouth daily. 30 tablet 11 12/17/2018 0 iron,carbonyl-vi tamin C 65 mg iron- [...] Progress Notes * Francisco Long MD - 12/01/2019 3:[address] scan today to rule out pulmonary emboli of the chest / hold call ONAL CARE SERVICE PROVIDER documented in this encounter Plan of Treatment Not on file documented as of this encounter Procedures Procedure Name Priority Date/Time Associated Diagnosis Comments BLOOD GAS, ARTERIAL STAT 12/01/2019 3 :45 PM PERSONAL CARE SERVICE PROVIDER documented in this encounter Results * (ABNORMAL) Blood gas, arterial (12/01/2019 3:45 PM PERSONAL CARE SERVICE PROVIDER) pH, Art 7.48(H) 7.35 - 7.45 [facility] ([place] PCO2, Arterial 34(L) 35 - 45 mmHg [facility] ([place] PO2, Arterial 68(L) 83 - 108 mmHg [facility] ([place]) HCO3 Art (Calculated) 25 20 - 30 mmol/L [facility] ([place]) BE, art 2 mmol/L [facility] ([place]) Comment: Interpretive Data No Reference Range Established Current Interpretive Data was last revised on 2017 O2 Sat Art (Measured) 94 90 - 95 % [facility] ([place]) Blood specimen (specimen) 12/01/2019 3:45 PM PERSONAL CARE SERVICE PROVIDER 12/01/2019 3:47 PM PERSONAL CARE SERVICE PROVIDER Francisco Long MD LAB BLOOD ORDERABLES Final Res ult [facility] ([place] 1 [facility] [place] [address] documented in this encounter Visit Diagnoses Not on filedocumented in this encounter Care Teams Courier Driver Relationship Specialty Start Date End Date Francisco Long MD PCP - General 02/23/17 05/15/22 Neil Ag MD PhD [address] [place] [address] Radiation Oncologist Radiation Oncology 12/17/18 [place] [address] [address] [address] [place] [id number] Referring Physician General Surgery 12/17/18 [place] [address] [address] [facility] [address] [place] [id number] Medical Oncologist/Surfboard Designer Medical Oncology 12/17/18 documented as of this encounter
--- OUTSIDE RECORDS SUMMARY | 2024-11-16 13:08 | XMS_ITS | Encounter Summary ---
Author Organization [facility] Address [address] [facility] [address] [place] [address] Care Team Providers Care Workers Compensation Specialist Name Role Phone Francisco Long MD Primary Care Provider [phone] Neil Ag MD PhD Unavailable [phone] Ita Vazquez MD Unavailable Caron Mohan MD Unavailable [phone] Encounter Details Date Type Department Care Team (Late st Contact Info) Description 12/01/2019 Telephone [facility] [address] [facility] [address] [place] [address] Francisco Long MD [address] [place] [address] [address] [place] [address] Social History Tobacco Use Types Packs/Day Years Used Date Smoking Tobacco: Never Smokeless Tobacco: Never Alcohol Use Standard Drinks/Week Comments No 0 (1 standard drink = 0.6 oz pur e alcohol) PHQ-2 Answer Date Recorded PHQ-2 Score 0 07/17/2019 Comments Unknown Sex and Gender Information Value Date Recorded Sex Assigned at Not on file 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 DIE WELDER Gender Identity Not on file Sexual Orientation Not on file documented as of this encounter Miscellaneous Notes * Telephone Encounter - Latoya Cotton MA - 12/01/2019 4:56 PM DIE WELDER Sent to referrals in result note WELDER * Telephone Encounter - Latoya Cotton MA - 12/01/2019 4:55 PM DIE WELDER ----- Message from Francisco Long MD sent at 12/01/2019 4:41 PM DIE WELDER ----- Left a message on her answering machine regarding her blood gas schedule CT scan of the chest tomorrow with contrast rule out PE WELDER documented in this encounter Plan of Treatment Not on file documented as of this encounter Visit Diagnoses Not on filedocumented in this encounter Care Teams Workers Compensation Specialist Relationship Specialty Start Date End Date Francisco Long MD PCP - General 02/23/17 05/15/22 Neil Ag MD PhD [address] [place] [address] Radiation Oncologist Radiation Oncology 12/17/18 [place] [address] [id number] Referring Physician General Surgery 12/17/18 [place] [address] [id number] Medical Oncologist/Saw Setter Medical Oncology 12/17/18 documented as of this encounter
--- OUTSIDE RECORDS SUMMARY | 2024-11-16 13:08 | XMS_ITS | Encounter Summary ---
Author Organization [facility] Healthcare Address [address] [place] [address] Care Team Providers Care Claim Investigator Name Role Phone Inez Long MD Primary Care Provider [phone] Neil Ag MD PhD Unavailable [phone] Ita Vazquez MD Unavailable Caron Mohan MD Unavailable Reason for Referral * Diagnostic Imaging (Routine) - Closed Specialty Diagnoses / Procedures Referred By Halima garcia Referred To Contact Diagnoses Pulmonary embolism, unspecified chronicity, unspecified pulmonary embolism type, unspecified whether acute cor pulmonale present (HCC) Procedures US Vein Duplex Lower Extremity Bilateral Complete Inez Long MD Phone: tel: fax: [address] [address] Referral ID Status Reason Start Date Expiration Date Visits Re quested Visits Authorized [id number] Closed 12/09/2019 06/19/2021 1 1 GRINDER Reason for Visit * Diagnostic Imaging (Routine) - Closed Specialty Diagnoses / Procedures Referred By Halima garcia Referred To Contact Diagnoses Pulmonary embolism, unspecified chronicity, unspecified pulmonary embolism type, unspecified whether acute cor pulmonale present (HCC) Procedures US Vein Duplex Lower Extremity Bilateral Complete Inez Long MD Phone: tel: fax: [address] [phone] Referral ID Status Reason Start Date Expiration Date Visits Re quested Visits Authorized [id number] Closed 12/09/2019 06/19/2021 1 1 Encounter Details Date Type Department Care Team (Latest Contact Info) Description 12/11/2019 2:12 PM SLAB GRINDER - 12/11/2019 11:59 PM SLAB GRINDER Hospital Encounter [facility] [address] [place] [address] Inez Long MD [address] [facility] [address] [place] [address] Pulmonary embolism, unspecified chronicity, unspecified pulmonary embolism type, unspecified whether acute cor pulmonale present ([facility]) Discharge Disposition: Discharge to home or [...] on file 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 SLAB GRINDER Gender Identity Not on file Sexual [...] Progress Notes * Inez Long MD - 12/11/2019 2:30 PM CST Each Doppler test shows no blood clots in the legs okay to leave a message Doppler test shows no blood clots in the legs GRINDER documented in this encounter Plan of Treatment Not on file documented as of this encounter Procedures Procedure Name Priority Date/Time Associated Diagnosis Comments US VEIN DUPLEX LOWER EXTREMITY BILATERAL COMPLETE Schedule Routine, Read Routine (OP Routine) 12/11/2019 3:05 PM SLAB GRINDER Pulmonary embolism, unspecified chronicity, unspecified pulmonary embolism type, unspecified whether acute cor pulmonale present ([facility]) documented in this encounter Results * US Vein Duplex Lower Extremity Bilateral Complete (12/11/2019 3:05 PM SLAB GRINDER) Anatomical Region Laterality Modality Vascular Bilateral Ultrasound 12/11/2019 4:04 PM SLAB GRINDER Addenda Addendum by Saqib Potter MD on 12/30/2019 4:06 PM SLAB GRINDER This addendum supersedes the initial report. Spectral Doppler sonographic evaluation not performed. Electronically signed by: Saqib Potter M.D. Impressions 12/11/2019 4:05 PM SLAB GRINDER Negative for lower extremity deep venous thrombosis. Electronically signed by: Saqib Potter M.D. Narrative 12/11/2019 4:05 PM SLAB GRINDER EXAMINATION: US VEIN DUPLEX LOWER EXTREMITY BILATERAL COMPLETE ORDERING HEALTHCARE PROVIDER: INEZ LONG HISTORY: Other pulmonary embolism without acute cor pulmonale. Pulmonary embolism unspecified chronicity. 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 ??Blood [...] Saqib Potter M.D. Inez Long MD IMG PROCEDURES Edited Resul t - Final documented in this encounter Visit Diagnoses Diagnosis Pulmonary embolism, unspecified chronicity, unspecified pulmonary embolism type, unspecified whether acute cor pulmonale present (HCC) documented in this encounter Care Teams Claim Investigator Relationship Specialty Start Date End Date Inez Long MD PCP - General 02/23/17 05/15/22 Neil Ag MD PhD [address] [place] [address] Radiation Oncologist Radiation Oncology 12/17/18 [place] [address] [address] [facility] [address] [place] [id number] Referring Physician General Surgery 12/17/18 [place] [address] [address] [facility] [address] [place] [id number] Medical Oncologist/Head Of Physics Medical Oncology 12/17/18 documented as of this encounter
--- OUTSIDE RECORDS SUMMARY | 2024-11-16 13:08 | XMS_ITS | Encounter Summary ---
Author Organization [facility] Medical Group Address [address] [facility] [address] [address] [place] [address] Care Team Providers Care Professional Advisor Name Role Phone Francisco Long MD Primary Care Provider Neil Ag MD PhD Unavailable [phone] Ita Vazquez MD Unavailable Caron Mohan MD Unavailable Marleni Chiu MA Unavailable [phone] Encounter Details Date Type Department Care Team (Late st Contact Info) Description 12/02/2019 Orders Only [facility] [address] [facility] [address] [place] [address] Francisco Long MD [address] [place] [address] [address] [place] [address] Abnormal blood gases (Primary Dx); Cough; Pulmonary embolism, unspecified chronicity, unspecified pulmonary embolism type, unspecified whether acute cor pulmonale present (CMS/HCC) Social History Tobacco Use Types Packs/Day [...] on file 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 IN ECONOMICS Gender Identity Not on file Sexual Orientation Not on file documented as of this encounter Plan of Treatment Not on file documented as of this encounter Visit Diagnoses Diagnosis Abnormal blood gases- Primary Cough Pulmonary embolism, unspecified chronicity, unspecified pulmonary embolism type, unspecified whether acute cor pulmonale present (HCC) documented in this encounter Care Teams Professional Advisor Relationship Specialty Start Date End Date Francisco Long MD PCP - General 02/23/17 05/15/22 Neil Ag MD PhD [address] [place] [address] Radiation Oncologist Radiation Oncology 12/17/18 [place] [address] [address] [facility] [address] [place], [place] [id number] Referring Physician General Surgery 12/17/18 [place] [address] [address] [facility] [address] [place], [place] [id number] Medical Oncologist/Motor Vehicle Assembly Supervisor Medical Oncology 12/17/18 Marelni Chiu MA [address] [place] [address] [address] [place] [address] ACO Care Cafeteria Attendant 12/04/19 12/04/19 documented as of this encounter
--- OUTSIDE RECORDS SUMMARY | 2024-11-16 13:08 | XMS_ITS | Encounter Summary ---
Author Organization [facility] Facility Care Team Providers Care Pewter Fabricator Name Role Phone Francisco Long MD Primary Care Provider [phone] Neil Ag MD PhD Unavailable [phone] Ita Vazquez MD Unavailable Caron Mohan MD Unavailable Encounter Details Date Type Department Care Team (Latest Contact Info) Description 12/01/2019 Travel Social History Tobacco Use Types Packs/Day Years Used Date Smoking Tobacco: Never Smokeless Tobacco: Never Alcohol Use Standard Drinks/Week Comments No 0 (1 standard drink = 0.6 oz pur e alcohol) PHQ-2 Answer Date Recorded PHQ-2 Score 0 07/17/2019 Comments Unknown Sex and Gender Information Value Date Recorded Sex Assigned at Not on file 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 TIMBER MANAGEMENT ASSISTANT Gender Identity Not on file Sexual Orientation Not on file documented as of this encounter Plan of Treatment Not on file documented as of this encounter Visit Diagnoses Not on filedocumented in this encounter Care Teams Pewter Fabricator Relationship Specialty Start Date End Date Francisco Long MD PCP - General 02/23/17 05/15/22 Neil Ag MD PhD [address] [place] [address] Radiation Oncologist Radiation Oncology 12/17/18 [place] [address] [address] Referring Physician General Surgery 12/17/18 [place] [address] [address] Medical Oncologist/Governor Assembler Hydraulic Medical Oncology 12/17/18 documented as of this encounter
--- OUTSIDE RECORDS SUMMARY | 2024-11-16 13:09 | XMS_ITS | Encounter Summary ---
Author Organization [facility] Medical [facility] Address [address] [facility] [address] [place] [address] Care Team Providers Care Personal Clothing Laundry Aide Name Role Phone Francisco Long MD Primary Care Provider Neil Ag MD PhD Unavailable [phone] Ita Vazquez MD Unavailable Caron Mohan MD Unavailable [phone] Encounter Details Date Type Department Care Team (Late st Contact Info) Description 09/12/2019 Orders Only [facility] [address] [facility] [address] [place] [address] Francisco Long MD [address] [place] [address] [address] [place] [address] Social History Tobacco Use Types Packs/Day Years Used Date Smoking Tobacco: Never Smokeless Tobacco: Never Alcohol Use Standard Drinks/Week Comments No 0 (1 standard drink = 0.6 oz pur e alcohol) PHQ-2 Answer Date Recorded PHQ-2 Score 0 07/17/2019 Comments Unknown Sex and Gender Information Value Date Recorded Sex Assigned at Not on file 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 DIRECTOR Gender Identity Not on file Sexual Orientation Not on file documented as of this encounter Plan of Treatment Not on file documented as of this encounter Procedures Procedure Name Priority Date/Time Associated Diagnosis Comments URINALYSIS AND REFLEX TO MICROSCOPIC Routine 09/12/2019 8:07 AM CDT documented in this encounter Results * (ABNORMAL) Urinalysis reflex to microscopic (09/12/2019 8:07 AM CDT) Color, ur YELLOW YELLOW [facility] [place] Appearance, ur CLEAR CLEAR [facility] Specific gravity 1.013 1.001 - 1.035 [facility] [place] pH, ur 5.5 5.0 - 8.0 [facility] Glucose, ur NEGATIVE NEGATIVE [facility] Bilirubin, ur NEGATIVE NEGATIVE [facility] Ketones, ur NEGATIVE NEGATIVE [facility] Blood, ur NEGATIVE NEGATIVE [facility] Protein, ur, quant NEGATIVE NEGATIVE [facility] Nitrites, ur NEGATIVE NEGATIVE [facility] Leukocyte esterase, ur TRACE(A) NEGATIVE [facility] WBC, ur 6-10(A) < OR = 5 /HPF [facility] [place] RBC, ur NONE SEEN < OR = 2 /HPF [facility] [place] Epithelial cells, squamous, ur NONE SEEN < OR = 5 /HPF [facility] [place] Bacteria, ur, quant MANY(A) NONE SEEN /HPF [facility] [place] Hyaline cast NONE SEEN NONE SEEN /LPF [facility] [place] 09/12/2019 8:07 AM CDT 09/12/2019 8:08 AM CDT Narrative [facility] - 09/13/2019 12:16 AM CDT SPLIT 09/10/2019 FROM [id number] Resulting Agency Comment Performing Organization Information: ?Site ID: [id number] ?Name: [facility] ?Address: [facility] [place] [address] ?Director: Alex Garcia D.O., MPH us Francisco Long MD LAB URINE ORDERABLES Final Res ult [facility] [place] documented in this encounter Visit Diagnoses Not on filedocumented in this encounter Care Teams Personal Clothing Laundry Aide Relationship Specialty Start Date End Date Francisco Long MD PCP - General 02/23/17 05/15/22 Neil Ag MD PhD [address] [place] [address] Radiation Oncologist Radiation Oncology 12/17/18 [place] [address] [address] [facility] [address] [place] [address] Referring Physician General Surgery 12/17/18 [place] [address] [address] [facility] [address] [place] [address] Medical Oncologist/Hydrogenation Operator Medical Oncology 12/17/18 documented as of this encounter
--- OUTSIDE RECORDS SUMMARY | 2024-11-16 13:09 | XMS_ITS | Encounter Summary ---
Author Organization [facility] Facility Care Team Providers Care Inspector Cold Working Name Role Phone Francisco Long MD Primary Care Provider [phone] Neil Ag MD PhD Unavailable [phone] Ita Vazquez MD Unavailable Caron Mohan MD Unavailable Encounter Details Date Type Department Care Team (Latest Contact Info) Description 11/14/2019 Travel Social History Tobacco Use Types Packs/Day Years Used Date Smoking Tobacco: Never Smokeless Tobacco: Never Alcohol Use Standard Drinks/Week Comments No 0 (1 standard drink = 0.6 oz pur e alcohol) PHQ-2 Answer Date Recorded PHQ-2 Score 0 07/17/2019 Comments Unknown Sex and Gender Information Value Date Recorded Sex Assigned at Not on file 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 Gender Identity Not on file Sexual Orientation Not on file documented as of this encounter Plan of Treatment Not on file documented as of this encounter Visit Diagnoses Not on filedocumented in this encounter Care Teams Inspector Cold Working Relationship Specialty Start Date End Date Francisco Long MD PCP - General 02/23/17 05/15/22 Neil Ag MD PhD [address] [place] [address] Radiation Oncologist Radiation Oncology 12/17/18 [place] [address] [address] Referring Physician General Surgery 12/17/18 [place] [address] [address] Medical Oncologist/Adjunct Professor Of English Medical Oncology 12/17/18 documented as of this encounter
--- OUTSIDE RECORDS SUMMARY | 2024-11-16 13:09 | XMS_ITS | Encounter Summary ---
Author Organization [facility] Address [address] [facility] [address] [place] [address] Care Team Providers Care Wrapping Machine Helper Name Role Phone Francisco Long MD Primary Care Provider [phone] Neil Ag MD PhD Unavailable [phone] Ita estrada MD Unavailable Caron Mohan MD Unavailable Encounter Details Date Type Department Care Team (Late st Contact Info) Description 12/01/2019 Telephone [facility] [address] [place] [phone] Teresa Velásquez I., RN Social History Tobacco Use Types Packs/Day Years Used Date Smoking Tobacco: Never Smokeless Tobacco: Never Alcohol Use Standard Drinks/Week Comments No 0 (1 standard drink = 0.6 oz pur e alcohol) PHQ-2 Answer Date Recorded PHQ-2 Score 0 07/17/2019 Comments Unknown Sex and Gender Information Value Date Recorded Sex Assigned at Not on file 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 SHAREPOINT WEB DEVELOPER Gender Identity Not on file Sexual Orientation Not on file documented as of this encounter Miscellaneous Notes * Telephone Encounter - Teresa Velásquez MA - 12/01/2019 1:05 PM SHAREPOINT WEB DEVELOPER Spoke w/ Latoya at Dr. Long's office, pt is to have XR and see Dr. Long right after. I spoke w/ pt, she is aware, states she will head to [facility] and then to Dr. Long's office. EPOINT WEB DEVELOPER * Telephone Encounter - Teresa Velásquez MA - 12/01/2019 12:55 PM SHAREPOINT WEB DEVELOPER Pt came into clinic stating she was seen ehre 11/14 for cough, she has taken the prescribed cough suppressant which has helped subside cough, however, she is feeling more sob than usual. Per providernote on 11/14 pt to f/u w/ PCP if continuing or worsening sx's. Pt stated it is too hard to get into her PCP office, requested I call for her to see if she can be seen today. I spoke w/ Otto at pt'sPCP office who put in a request to Dr. Long for pt to be worked in today. Pt aware, verbalized understanding. EPOINT WEB DEVELOPER documented in this encounter Plan of Treatment Not on file documented as of this encounter Visit Diagnoses Not on filedocumented in this encounter Care Teams Wrapping Machine Helper Relationship Specialty Start Date End Date Francisco Long MD PCP - General 02/23/17 05/15/22 Neil Ag MD PhD [address] [place] [address] Radiation Oncologist Radiation Oncology 12/17/18 [place] [address] [address] [place] [address] Referring Physician General Surgery 12/17/18 [place] [address] [address] [place] [address] Medical Oncologist/Mill Tender Second Operator Medical Oncology 12/17/18 documented as of this encounter
--- OUTSIDE RECORDS SUMMARY | 2024-11-16 13:09 | XMS_ITS | Encounter Summary ---
Author Organization [facility] Healthcare Address [address] [place] [address] Care Team Providers Care Artificial Inseminator Name Role Phone Francisco Long MD Primary Care Provider [phone] Neil Ag MD PhD Unavailable [phone] Ita estrada MD Unavailable Caron Mohan MD Unavailable [phone] Encounter Details Date Type Department Care Team (Late st Contact Info) Description 04/09/2019 Orders Only RAD ONC TREATMENTS Miscellaneous, Not In File Social History Tobacco Use Types Packs/Day Years Used Date Smoking Tobacco: Never Smokeless Tobacco: Never Alcohol Use Standard Drinks/Week Comments No 0 (1 standard drink = 0.6 oz pur e alcohol) Comments Unknown Sex and Gender Information Value Date Recorded Sex Assigned at Not on file 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 TECHNOLOGY ADMINISTRATOR Gender Identity Not on file Sexual Orientation Not on file documented as of this encounter Plan of Treatment Not on file documented as of this encounter Procedures Procedure Name Priority Date/Time Associated Diagnosis Comments RAD ONC ARIA COURSE SUMMARY 04/09/2019 2:58 PM CDT documented in this encounter Results * RAD ONC ARIA COURSE SUMMARY (04/09/2019 2:58 PM CDT) Course Name C1 L BRS NC 2018 ARIA Course Plan Date 12/30/2018 12:25 PM ARIA Elapsed Days 21 ARIA Treatment Start Date 01/08/2019 ARIA Treatment Site LT BRST ARIA Dose Given To Date (cGy) 4,256 ARIA Session Dosage Given (cGy) 0 ARIA Plan ID LT BRST:1 ARIA Fractions Treated 16 ARIA Prescribed Dose Per Fraction (cGy) 266 ARIA Prescribed Total Dose (cGy) 4,256 ARIA 04/09/2019 2:58 PM CDT us Not In File Miscellaneous RADIATION ONCOLOGY ORD ERABLES Final Result ARIA documented in this encounter Visit Diagnoses Not on filedocumented in this encounter Care Teams Artificial Inseminator Relationship Specialty Start Date End Date Francisco Long MD PCP - General 02/23/17 05/15/22 Neil Ag MD PhD [address] [place] [address] Radiation Oncologist Radiation Oncology 12/17/18 [place] [address] [facility] [address] [place] [address] Referring Physician General Surgery 12/17/18 [place] [address] [facility] [address] [place], [place] [id number] Medical Oncologist/Signal Manager Medical Oncology 12/17/18 documented as of this encounter
--- OUTSIDE RECORDS SUMMARY | 2024-11-16 13:09 | XMS_ITS | Encounter Summary ---
Author Organization [facility] Address [address] [place] [address] Care Team Providers Care Manufacturing Storeperson Name Role Phone Inez Long MD Primary Care Provider [phone] Neil Ag MD PhD Unavailable [phone] Ita Vazquez MD Unavailable Caron Mohan MD Unavailable Reason for Referral * Diagnostic Imaging (Emergency) - Closed Specialty Diagnoses / Procedures Referred By Contac t Referred To Contact Diagnoses Cough SOB (shortness of breath) Procedures XR Chest Pa Lateral 2 Vw Inez Long MD Phone: tel: fax: [facility] [address] [place] [address] Referral ID Status Reason Start Date Expiration Date Visits Re quested Visits Authorized [id number] Closed 12/01/2019 06/11/2021 1 1 TMENT COMMUNITY MANAGER Encounter Details Date Type Department Care Team (Late st Contact Info) Description 12/01/2019 Telephone [facility] [address] [facility] [address] [place] [phone] Inez Long MD [address] [place] [address] Social History Tobacco Use Types Packs/Day Years Used Date Smoking Tobacco: Never Smokeless Tobacco: Never Alcohol Use Standard Drinks/Week Comments No 0 (1 standard drink = 0.6 oz pur e alcohol) PHQ-2 Answer Date Recorded PHQ-2 Score 0 07/17/2019 Comments Unknown Sex and Gender Information Value Date Recorded Sex Assigned at Not on file 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 APARTMENT COMMUNITY MANAGER Gender Identity Not on file Sexual Orientation Not on file documented as of this encounter Miscellaneous Notes * Telephone Encounter - Anitra Pinto - 12/01/2019 1:31 PM CST Pt aware to go to [facility] for stat chest xray, then to come here to see dr Long TMENT COMMUNITY MANAGER * Telephone Encounter - Latoya Cotton MA - 12/01/2019 1:03 PM APARTMENT COMMUNITY MANAGER Tracy with [facility] aware. She states pt just left there and she is going to try and get ahold of the pt. Per verbal from JR, he would like this done as a hold and call. Sending to referrals TMENT COMMUNITY MANAGER * Telephone Encounter - Inze Long MD - 12/01/2019 12:58 PM CST Get chest x-ray at the hospital now and then see me afterwards TMENT COMMUNITY MANAGER * Telephone Encounter - Chyna Choe - 12/01/2019 12:56 PM CST JR please advise TMENT COMMUNITY MANAGER * Telephone Encounter - Katie Apple - 12/01/2019 12:53 PM CST Pt was seen at the [facility] 11/14/19. Per their office she still complains of cough and sob. Pt is unable to get from her car to their building without getting sob. Would like pt to beseen in our office today if possible. No appts with JR or extenders. Ok for work in? TMENT COMMUNITY MANAGER documented in this encounter Plan of Treatment Not on file documented as of this encounter Results * XR Chest Pa Lateral 2 Vw (12/01/2019 1:59 PM APARTMENT COMMUNITY MANAGER) Anatomical Region Laterality Modality Body, Chest N/A Computed Radiogr aphy 12/01/2019 2:07 PM APARTMENT COMMUNITY MANAGER Impressions 12/01/2019 2:08 PM APARTMENT COMMUNITY MANAGER No radiographic evidence of acute cardiopulmonary disease. Electronically signed by: Saqib Potter M.D. Narrative 12/01/2019 2:08 PM APARTMENT COMMUNITY MANAGER EXAMINATION: XR CHEST PA LATERAL 2 VIEWS ORDERING HEALTHCARE PROVIDER: INEZ LONG HISTORY: cough Patient states having a cough for 2 1/2 weeks. Extreme SOB. ??HX lymph node removed due to cancer, uterus removed due to cancer. Both done in 2018. ?? TECHNIQUE: PA and lateral radiographs of the chest. COMPARISON: None available FINDINGS: HEART/MEDIASTINUM: The cardiomediastinal silhouette and pulmonary vasculature are normal. LUNGS/PLEURA: There is no airspace consolidation or pleural effusion. HARDWARE/LINES/TUBES: None. BONES: Mild thoracic spondylosis. OTHER: Hiatal hernia. Procedure Note Saqib Potter MD - 12/01/2019 EXAMINATION: XR CHEST PA LATERAL 2 VIEWS [...] BONES: Mild thoracic spondylosis. OTHER: Hiatal hernia. IMPRESSION: No radiographic evidence of acute cardiopulmonary disease. Electronically signed by: Saqib Potter M.D. us Inez Long MD IMG XR PROCEDURES Final Result documented in this encounter Visit Diagnoses Diagnosis Cough- Primary SOB (shortness of breath) Shortness of breath Cough SOB (shortness of breath) Shortness of breath documented in this encounter Care Teams Manufacturing Storeperson Relationship Specialty Start Date End Date Inez Long MD PCP - General 02/23/17 05/15/22 Neil Ag MD PhD [address] [place] [address] Radiation Oncologist Radiation Oncology 12/17/18 [place] [id number] [address] [facility] [address] [place] [address] Referring Physician General Surgery 12/17/18 [place] [address] [address] [facility] [address] [place], [place] [id number] Medical Oncologist/Auto Tune Up Mechanic Medical Oncology 12/17/18 documented as of this encounter
--- OUTSIDE RECORDS SUMMARY | 2024-11-16 13:09 | XMS_ITS | Encounter Summary ---
Author Organization [facility] Address [address] [place] [address] Care Team Providers Care Filter Cloth Maker Name Role Phone Inez Long MD Primary Care Provider [phone] Neil Ag MD PhD Unavailable [phone] Ita Vazquez MD Unavailable Caron Mohan MD Unavailable Reason for Referral * Diagnostic Imaging (Emergency) - Closed Specialty Diagnoses / Procedures Referred By Contac t Referred To Contact Diagnoses Cough SOB (shortness of breath) Procedures XR Chest Pa Lateral 2 Vw Inez Long MD Phone: tel: fax: [address] [address] Referral ID Status Reason Start Date Expiration Date Visits Re quested Visits Authorized [id number] Closed 12/01/2019 06/11/2021 1 1 LE TURNER Reason for Visit * Diagnostic Imaging (Emergency) - Closed Specialty Diagnoses / Procedures Referred By Contac t Referred To Contact Diagnoses Cough SOB (shortness of breath) Procedures XR Chest Pa Lateral 2 Vw Inez Long MD Phone: tel: fax: [address] [address] Referral ID Status Reason Start Date Expiration Date Visits Re quested Visits Authorized [id number] Closed 12/01/2019 06/11/2021 1 1 Encounter Details Date Type Department Care Team (Latest Contact Info) Description 12/01/2019 1:42 PM HANDLE TURNER - 12/01/2019 2:59 PM HANDLE TURNER Hospital Encounter [facility] 1 [place] [address] Inez Long MD [address] [address] Cough; SOB (shortness of breath) Discharge Disposition: Discharge to home or self [...] on file 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 HANDLE TURNER Gender Identity Not on file Sexual Orientation [...] Progress Notes * Inez Long MD - 12/01/2019 2:45 PM CST Left a message on her answering machine regarding her blood gas schedule CT scan of the chest tomorrow with contrast rule out PE LE TURNER documented in this encounter Plan of Treatment Not on file documented as of this encounter Procedures Procedure Name Priority Date/Time Associated Diagnosis Comments EGFR Routine 12/01/2019 3:35 PM HANDLE TURNER DIFFERENTIAL AUTO Routine 12/01/2019 3:3 5 PM HANDLE TURNER PRO B-TYPE NATRIURETIC PEPTIDE Routine 12/01/2019 3:35 PM HANDLE TURNER CBC WITH AUTO DIFFERENTIAL Routine 12/01/2019 3:35 PM HANDLE TURNER ERYTHROCYTE SEDIMENTATION RATE Routine 12/01/2019 3:35 PM HANDLE TURNER COMPREHENSIVE METABOLIC PANEL Routine 12/01/2019 3:35 PM HANDLE TURNER XR CHEST PA LATERAL 2 VIEWS STAT 12/01/2019 1:59 PM HANDLE TURNER Cough SOB (shortness of breath) documented in this encounter Results * eGFR (12/01/2019 3:35 PM HANDLE TURNER) eGFR 76 mL/min/1.7 3 m2 [facility] ([place]) Comment: Interpretive Data Reference Interval Normal ?>/= 90 mL/min/1.73m2 Mildly decreased* ? 60 - 89 mL/min/1.73m2 Mildly to moderately decreased ?45 - 59 mL/min/1.73m2 Moderately to severely decreased ??30 - 44 mL/min/1.73m2 Severely decreased ?15 - 29 mL/min/1.73m2 Kidney Failure ?< 15 ??mL/min/1.73m2 *Relative to young adult level If -[place] multiply value by 1.16. Estimated glomerular filtration [...] was last reviewed 2016. Blood specimen (specimen) 12/01/2019 3:35 PM HANDLE TURNER 12/01/2019 4:17 PM HANDLE TURNER us Inez Long MD LAB BLOOD ORDERABLES Final Res ult [facility] ([place]) 1 [facility] Department [place] [address] * (ABNORMAL) Differential, auto (12/01/2019 3:35 PM HANDLE TURNER) Neutrophil abs 7.6(H) 1.7 - 6.5 K/cumm [facility] ([place]) Imm gran abs 0.0 0.0 - 0.1 K/cumm [facility] ([place]) Lymphocyte abs 0.7(L) 0.8 - 3.3 K/cumm [facility] ([place]) Monocyte abs 0.6 0.2 - 0.8 K/cumm [facility] ([place]) Eosinophil abs 0.3 0.0 - 0.5 K/cumm [facility] ([place]) Basophil abs 0.0 0.0 - 0.1 K/cumm [facility] ([place]) Neutrophil pct 81.9 % [facility] ([place]) Comment: Interpretive Data Percent cell count reference ranges are not reported, since discordance with absolute values may lead to misinterpretation of CBC data. Current Interpretive Data was last revised on 2018. Imm gran pct 0.5 % [facility] ([place]) Comment: Interpretive Data Percent cell count reference ranges are not reported, since discordance with absolute values may lead to misinterpretation of CBC data. Current Interpretive Data was last revised on 2018. Lymphocyte pct 7.5 % [facility] ([place]) Comment: Interpretive Data Percent cell count reference ranges are not reported, since discordance with absolute values may lead to misinterpretation of CBC data. Current Interpretive Data was last revised on 2018. Monocyte pct 6.7 % [facility] ([place]) Comment: Interpretive Data Percent cell count reference ranges are not reported, since discordance with absolute values may lead to misinterpretation of CBC data. Current Interpretive Data was last revised on 2018. Eosinophil pct 2.9 % [facility] ([place]) Comment: Interpretive [...] last revised on 2018. Blood specimen (specimen) 12/01/2019 3:35 PM HANDLE TURNER 12/01/2019 4:17 PM HANDLE TURNER Inez Long MD LAB BLOOD ORDERABLES Final Res ult Performing Organization Address [facility] Co de Phone Number [facility] ([place]) 1 [facility] [employer] [address] * Erythrocyte sedimentation rate (12/01/2019 3:35 PM HANDLE TURNER) Erythrocyte sedimentation rate 10 1 - 30 mm/hr [facility] ([place]) Blood specimen (specimen) 12/01/2019 3:35 PM HANDLE TURNER 12/01/2019 4:17 PM HANDLE TURNER Inez Long MD LAB BLOOD ORDERABLES Final Res ult Performing Organization Address City/[facility]/ZIP Co de Phone Number [facility] ([place]) 1 [facility] [place] [address] * Pro B-type natriuretic peptide (12/01/2019 3:35 PM HANDLE TURNER) NT-proBNP 237 <=300 pg/mL [facility] ([place]) Comment: Interpretive [...] Heart J. 2006:27:330-337. 2. Shadi RW, Karen AM. J. AM Nabil Cardiol: Cardiovasc Imag. 2009;2: 216- 225. Interpretive Data Last Revised Date: 2018. Blood specimen (specimen) 12/01/2019 3:35 PM HANDLE TURNER 12/01/2019 4:17 PM HANDLE TURNER us Inez Long MD LAB BLOOD ORDERABLES Final Res ult Performing Organization Address City/State/[facility] Co de Phone Number [facility] ([place]) 1 [facility] Department [place] [address] * Comprehensive metabolic panel (12/01/2019 3:35 PM HANDLE TURNER) Sodium 139 135 - 145 mmol/L [facility] ([place]) Potassium, pl 3.6 3.3 - 4.9 mmol/L [facility] ([place]) Chloride 100 97 - 110 mmol/L [facility] ([place]) CO2 25 22 - 32 mmol/L [facility] ([place]) Anion gap 14 2 - 15 mmol/L [facility] ([place]) BUN 16 8 - 25 mg/dL [facility] ([place]) Creatinine 0.78 0.60 - 1.10 mg/dL [facility] ([place]) Glucose 137 70 - 199 mg/dL [facility] ([place]) [...] 2017. Calcium 9.5 8.5 - 10.3 mg/dL [facility] ([place]) Bilirubin, total 0.3 0.1 - 1.2 mg/dL [facility] ([place]) Protein, pl 7.1 6.5 - 8.5 g/dL [facility] ([place]) Albumin 4.5 3.5 - 5.0 g/dL [facility] ([place]) Alk phos 79 40 - 130 Units/L [facility] ([place]) ALT 44 7 - 45 Units/L [facility] ([place]) AST 37 10 - 45 Units/L [facility] ([place]) Blood specimen (specimen) 12/01/2019 3:35 PM HANDLE TURNER 12/01/2019 4:17 PM HANDLE TURNER Inez Long MD LAB BLOOD ORDERABLES Final Res ult [facility] ([place]) [address] [facility] Department [place] [address] * (ABNORMAL) CBC with auto differential (12/01/2019 3:35 PM HANDLE TURNER) WBC 9.3 3.8 - 9.9 K/cumm [facility] ([place]) Hgb 10.5(L) 11.9 - 15.5 g/dL [facility] ([place]) Hct 35.4(L) 35.6 - 45.5 % [facility] ([place]) Plt 273 150 - 400 K/cumm [facility] ([place]) MPV 10.1 9.1 - 12.3 fL [facility] ([place]) RBC 4.65 3.90 - 5.20 M/cumm [facility] ([place]) MCV 76.1(L) 81.3 - 96.4 fL [facility] ([place]) MCH 22.6(L) 27.1 - 33.3 pg [facility] ([place]) MCHC 29.7(L) 32.3 - 35.7 g/dL [facility] ([place]) RDW CV 23.7(H) 11.1 - 14.9 % [facility] ([place]) RDW SD 61.8(H) 35.7 - 48.1 fL [facility] ([place]) NRBC abs 0.00 0.00 - 0.01 K/cumm [facility] ([place]) Blood specimen (specimen) 12/01/2019 3:35 PM HANDLE TURNER 12/01/2019 4:17 PM HANDLE TURNER Inez Long MD LAB BLOOD ORDERABLES Final Res ult [facility] ([place]) 1 [facility] Department [place] [address] * XR Chest Pa Lateral 2 Vw (12/01/2019 1:59 PM HANDLE TURNER) Anatomical Region Laterality Modality Body, Chest N/A Computed Radiogr aphy 12/01/2019 2:07 PM HANDLE TURNER Impressions 12/01/2019 2:08 PM HANDLE TURNER No radiographic evidence of acute cardiopulmonary disease. Electronically signed by: Saqib Potter M.D. Narrative 12/01/2019 2:08 PM HANDLE TURNER EXAMINATION: XR CHEST PA LATERAL 2 VIEWS [...] disease. Electronically signed by: Saqib Potter M.D. Inez Long MD IMG XR PROCEDURES Final Result documented in this encounter Visit Diagnoses Diagnosis Cough SOB (shortness of breath) Shortness of breath documented in this encounter Care Teams Filter Cloth Maker Relationship Specialty Start Date End Date Inez Long MD PCP - General 02/23/17 05/15/22 Neil Ag MD PhD [address] [place] [address] Radiation Oncologist Radiation Oncology 12/17/18 [place] [address] [address] [facility] [address] [place] [id number] Referring Physician General Surgery 12/17/18 [place] [address] [address] [facility] [address] [place] [address] Medical Oncologist/Sorting Supervisor Medical Oncology 12/17/18 documented as of this encounter
--- OUTSIDE RECORDS SUMMARY | 2024-11-16 13:09 | XMS_ITS | Encounter Summary ---
Author Organization [facility] Address [address] [place] [address] Care Team Providers Care Hand Presser Name Role Phone Francisco Long MD Primary Care Provider Neil Ag MD PhD Unavailable [phone] Ita Vazquez MD Unavailable Caron Mohan MD Unavailable Reason for Visit * Reason Comments Cough Patient states she h as had a cough for 3 days. Patient states that she is taking OTC cough syrup and cough drops for her sx. Encounter Details Date Type Department Care Team (Late st Contact Info) Description 11/14/2019 11:00 AM PUBLIC WORKS MANAGER Office Visit [facility] [address] [place] [address] Anita Hendrickson, HL7 DEVELOPER [address] [place] [address] [facility] [address] [address] Cough (Primary Dx) Social History Tobacco Use Types [...] on file 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 PUBLIC WORKS MANAGER Gender Identity Not on file Sexual Orientation Not on file documented as of this encounter Last Filed Vital Signs Vital Sign Reading Time Taken Comments Blood Pressure 122/64 11/14/2019 11:07 AM PUBLIC WORKS MANAGER Pulse 85 11/14/2019 11:07 AM PUBLIC WORKS MANAGER Temperature 36.7 ??C (98.1 ??F) 11/14/2019 1 1:07 AM PUBLIC WORKS MANAGER Respiratory Rate 16 11/14/2019 11:0 7 AM PUBLIC WORKS MANAGER Oxygen Saturation 96% 11/14/2019 11: 07 AM PUBLIC WORKS MANAGER Inhaled Oxygen Concentration - - Weight 85.2 kg (187 lb 12.8 oz) 019 11:07 AM PUBLIC WORKS MANAGER Height 168.9 cm (5' 6.5 ) 11/14/2019 11 :07 AM PUBLIC WORKS MANAGER Body Mass Index 29.86 11/14/2019 11:07 AM PUBLIC WORKS MANAGER documented in this encounter Patient Instructions * Patient Instructions* Anita Hendrickson NP - 11/14/2019 11:00 AM PUBLIC WORKS MANAGER Complete any medications prescribed You may take a cough suppressant to calm your cough (dayquil, delsym, or nyquil) If your cough is productive or you have tight chest congestion with thick mucus- you can use a cough expectorant like Mucinex Benadryl/Zyrtec can be used to dry up a runny nose, Sudafed can help with nasal congestion. Drink plenty of fluids and get plenty of rest Hot tea with honey can help cough Humidifier/Vaporizer Tylenol/Motrin for pain/fever If you are not better in the next 5 days, follow up w PCP. IC WORKS MANAGER documented in this encounter Ordered Prescriptions Prescription Sig Dispense Quantity Refills Last Filled Start Date End Date benzonatate (TESSALON) 200 mg capsule Take 1 capsule (200 mg total) by mouth 3 (three) times a day as needed for cough 42 capsule 11/14/2019 0 documented in this encounter Progress Notes * Anita Hendrickson NP - 11/14/2019 11:00 AM CST Subjective/Objective Patient ID: Jolene Cedillo is a 73 y.o. female. Chief Complaint Cough (Patient states she has had a cough for 3 days. Patient states that she is taking OTC cough syrup and cough drops for her sx.) Complains of cough that is worsening. States she has to sit up to sleep to get any kind of relief. OTC cough syrup not helping. Cough This is a new problem. The current episode started in the past 7 days. The problem has been gradually worsening. The problem occurs constantly. The cough is non-productive. Pertinent negatives include no chest pain, chills, ear congestion, ear pain, fever, headaches, myalgias, nasal congestion, postnasal drip, rash, rhinorrhea, sore throat, shortness of breath or wheezing. The symptoms are aggravated by lying down. She has tried OTC cough suppressant for the symptoms. The treatment provided no relief. Her past medical history is significant for bronchitis. There is no history of asthma, COPD or environmental allergies. Review of Systems Constitutional: Negative for chills, fatigue, fever and unexpected weight change. HENT: Negative for ear pain, hearing loss, postnasal drip, rhinorrhea, sore throat, tinnitus and trouble swallowing. Eyes: Negative for pain and visual disturbance. Respiratory: Positive for cough. Negative for shortness of breath and wheezing. Cardiovascular: Negative for chest pain, palpitations and leg swelling. Gastrointestinal: Negative for abdominal pain, blood in stool, constipation, diarrhea, nausea and vomiting. Endocrine: Negative for cold intolerance, heat intolerance, polydipsia and polyuria. Genitourinary: Negative for dyspareunia, dysuria, frequency, hematuria, pelvic pain, vaginal bleeding and vaginal discharge. Musculoskeletal: Negative for arthralgias, back pain, gait problem, joint swelling and myalgias. Skin: Negative for color change and rash. Allergic/Immunologic: Negative. Negative for environmental allergies. Neurological: Negative for dizziness, numbness and headaches. Hematological: Does not bruise/bleed easily. Psychiatric/Behavioral: Negative for confusion, decreased concentration, dysphoric mood, sleep disturbance and suicidal ideas. The patient is not nervous/anxious. Breast: Negative for tenderness, breast redness, breast discharge and lump(s). Physical Exam Vitals signs reviewed. Constitutional: Appearance: She is well-developed. HENT: Right Ear: Hearing, tympanic membrane, ear canal and external ear normal. Left Ear: Hearing, tympanic membrane, ear canal and external ear normal. Nose: Rhinorrhea (post nasal drip) present. No mucosal edema or congestion. Right Sinus: No maxillary sinus tenderness or frontal sinus tenderness. Left Sinus: No maxillary sinus tenderness or frontal sinus tenderness. Mouth/Throat: Pharynx: Uvula midline. Eyes: Conjunctiva/sclera: Conjunctivae normal. Pupils: Pupils are equal, round, and reactive to light. Neck: Musculoskeletal: Normal range of motion. Cardiovascular: Rate and Rhythm: Normal rate and regular rhythm. Pulmonary: Effort: Pulmonary effort is normal. Breath sounds: Normal breath sounds. Abdominal: Palpations: Abdomen is soft. Musculoskeletal: Normal range of motion. Lymphadenopathy: Cervical: No cervical adenopathy. Skin: General: Skin is warm and dry. Neurological: Mental Status: She is alert and oriented to person, place, and time. Psychiatric: Behavior: Behavior normal. Vitals: 11/14/19 1107 BP: 122/64 BP Location: Left arm Patient Position: Sitting Pulse: 85 Resp: 16 Temp: 36.7 ??C (98.1 ??F) TempSrc: Oral SpO2: 96% Weight: 85.2 kg (187 lb 12.8 oz) Height: 168.9 cm (5' 6.5 ) Assessment/Plan Diagnoses and all orders for this visit: Cough (Primary) Other orders - benzonatate (TESSALON) 200 mg capsule; Take 1 capsule (200 mg total) by mouth 3 (three) times a day as needed for cough Disposition- Discussed medications dosages, usage & potential side effects. Risks and interactions reviewed with patient. Indications for testing reviewed. Patient has been instructed to follow up w PCP or go to ER for any signs or symptoms that are of concern or worsening. Patient verbalizes understanding. The patient was given the opportunity to ask all questions and to have all questions answered. Patient is in agreement with the plan of care Anita Hendrickson NP IC WORKS MANAGER documented in this encounter Plan of Treatment Not on file documented as of this encounter Visit Diagnoses Diagnosis Cough- Primary documented in this encounter Care Teams Hand Presser Relationship Specialty Start Date End Date Francisco Long MD PCP - General 02/23/17 05/15/22 Neil Ag MD PhD [address] [place] [id number] Radiation Oncologist Radiation Oncology 12/17/18 [place] [address] [address] [facility] [address] [place] [address] Referring Physician General Surgery 12/17/18 [place] [address] [address] [facility] [address] [place] [address] Medical Oncologist/Technician Inventory Specialist Medical Oncology 12/17/18 documented as of this encounter
--- OUTSIDE RECORDS SUMMARY | 2024-11-16 13:09 | XMS_ITS | Encounter Summary ---
Author Organization [facility] Healthcare Address [address] [place] [address] Care Team Providers Care Spring Assembler Supervisor Name Role Phone Francisco Long MD Primary Care Provider Neil Ag MD PhD Unavailable [phone] Ita Vazquez MD Unavailable Caron Mohan MD Unavailable Encounter Details Date Type Department Care Team (Late st Contact Info) Description 08/11/2019 11:00 AM CDT Office Visit [facility] Radiation Oncology [address] [place] [id number] Neil Ag MD PhD [address] [place] [id number] Malignant neoplasm of upper-inner quadrant of left [...] on file 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 PHLEBOTOMY SERVICES TECHNICIAN Gender Identity Not on file Sexual Orientation Not on file documented as of this encounter Last Filed Vital Signs Vital Sign Reading Time Taken Comments Blood Pressure 164/76 08/11/2019 11:01 AM CDT Pulse 85 08/11/2019 11:01 AM CDT Temperature 36.1 ??C (97 ??F) 08/11/2019 11:01 AM CDT Respiratory Rate 20 08/11/2019 11:01 AM CDT Oxygen Saturation - - Inhaled Oxygen Concentration - - Weight 87 kg (191 lb 12.8 oz) 08/11/2019 11:01 A M CDT Height - - Body Mass Index 30.49 03/17/2019 8:53 AM CDT documented in this encounter Discharge Disposition Disposition Code Departure Means Destination Discharge to home or self care documented in this encounter Progress Notes * Neil Ag MD PhD - 08/11/2019 11:00 AM CDT Staff Physician: Neil Ag MD PhD Referring Physician: Patient Care Team: Ita Vazquez MD as Referring Physician (General Surgery) Date of Service: 08/11/2019 RADIATION ONCOLOGY FOLLOW UP NOTE IDENTIFYING DATA: Cancer Staging Malignant neoplasm of upper-inner quadrant of left breast in female, estrogen receptor positive (CMS/HCC) Staging form: Breast, AJCC 8th Edition - Pathologic stage from 12/17/2018: Stage IA (pT1b, pN1mi(sn), cM0, G2, ER: Positive, TN: Positive, HER2: Negative) - Signed by Neil Ag MD PhD on 12/17/2018 Treatment Intent: adjuvant Jolene Cedillo is a 73 y.o. 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 This is her 1st follow-up since completing radiation therapy. INTERVAL HISTORY: Since completing radiation therapy, the patient has been doing well without any significant complaints. She denies ever developing any significant erythema or desquamation shortly after radiation completion. She currently denies any significant skin changes in that left breast or any left breast pain. She denies any headache, nausea, vomiting, vision changes, or any focal numbness or weakness. She denies any new bony pain or any pain otherwise (0/10). Shortly after completing radiation treatment, she was started on letrozole by her medical oncologist and is tolerating this relatively well. She had a left diagnostic mammogram at [facility] on 05/14/2019 which showed involving postsurgical changesin the upper inner left breast (BI-RADS 2). She otherwise denies any changes to her [...] hematologic/lymphatic, or immunologic systems. PHYSICAL EXAMINATION: BP 164/76 Pulse 85 Temp 36.1 ??C (97 ??F) Resp 20 Wt 87 kg (191 lb 12.8 oz) BMI 30.49 kg/m?? Pain Score and Location 08/11/19 1101 PainSc: 0-No pain ECOG Performance: 0 Physical Exam Constitutional: She is oriented to person, place, and time. She appears well- developed and well-nourished. No distress. HENT: Head: Normocephalic and atraumatic. Eyes: Pupils are equal, round, and reactive to light. EOM are normal. Neck: Normal range of motion. Neck supple. Cardiovascular: Normal rate, regular rhythm and normal heart sounds. Pulmonary/Chest: Effort normal. No respiratory distress. Left breast with some mild hyperpigmentation, particularly of the areola and surrounding central breast. No erythema, desquamation, or telangiectasia. No palpable masses in either breast bilaterally. Abdominal: Soft. She exhibits no distension. There is no tenderness. Musculoskeletal: Normal range of motion. She exhibits no edema. Lymphadenopathy: She has no axillary adenopathy. Neurological: She is alert and oriented to person, place, and time. No cranial nerve deficit or sensory deficit. Psychiatric: She has a normal mood and affect. Her behavior is normal. Judgment and thought contentnormal. DIAGNOSTIC REPORTS REVIEWED: Imaging: I personally reviewed the imaging report (images not available for review) and pertinent findings as per interval history. 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 She is currently on letrozole. She has done well status post completing radiation therapy with no significant acute or residual toxicity. She has no clinical or radiographic evidence of disease progression at this time. PLAN: Return to clinic in 6 months. [...] Primary documented in this encounter Care Teams Spring Assembler Supervisor Relationship Specialty Start Date End Date Francisco Long MD PCP - General 02/23/17 05/15/22 Neil Ag MD PhD [address] [place] [address] Radiation Oncologist Radiation Oncology 12/17/18 [place] [address] [facility] [address] [place] [id number] Referring Physician General Surgery 12/17/18 [place] [address] [address] Medical Oncologist/Bench Patternmaker Metal Medical Oncology 12/17/18 documented as of this encounter
--- OUTSIDE RECORDS SUMMARY | 2024-11-16 13:09 | XMS_ITS | Encounter Summary ---
Author Organization [facility] Care Team Providers Care Human Services Program Specialist Name Role Phone Francisco Long MD Primary Care Provider [phone] Neil Ag MD PhD Unavailable [phone] [facility] Un[facility] Caron Mohan MD Unavailable Encounter Details Date Type Department Care Team (Latest Contact Info) Description 03/17/2019 Travel Social History Tobacco Use Types Packs/Day Years Used Date Smoking Tobacco: Never Smokeless Tobacco: Never Alcohol Use Standard Drinks/Week Comments No 0 (1 standard drink = 0.6 oz pur e alcohol) Comments Unknown Sex and Gender Information Value Date Recorded Sex Assigned at Not on file 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 BELL SPINNER SOUSAPHONES Gender Identity Not on file Sexual Orientation Not on file documented as of this encounter Plan of Treatment Not on file documented as of this encounter Visit Diagnoses Not on filedocumented in this encounter Care Teams Human Services Program Specialist Relationship Specialty Start Date End Date Francisoc Long MD PCP - General 02/23/17 05/15/22 Neil Ag MD PhD [address] [place] [address] Radiation Oncologist Radiation Oncology 12/17/18 [place] [address] [address] [facility] [address] [place] [address] Referring Physician General Surgery 12/17/18 [place] [address] [address] [facility] [address] [place], [place] [id number] Medical Oncologist/Avionics Shop Supervisor Medical Oncology 12/17/18 documented as of this encounter
--- OUTSIDE RECORDS SUMMARY | 2024-11-16 13:09 | XMS_ITS | Encounter Summary ---
Author Organization [facility] Medical Group Address [address] [facility] [address] [place] [address] Care Team Providers Care Subgrade Roller Operator Name Role Phone Francisco Long MD Primary Care Provider Neil Ag MD PhD Unavailable [phone] Ita Vazquez MD Unavailable Caron Mohan MD Unavailable Reason for Visit * Reason Comments Shortness of Breath Encounter Details Date Type Department Care Team (Late st Contact Info) Description 12/01/2019 2:30 PM ENVIRONMENTAL SERVICES SUPERVISOR Office Visit [facility] [address] [facility] [address] [place] [address] Francisco Long MD [address] [place] [address] [address] [place], [place] [id number] SOB (shortness of breath) on exertion (Primary Dx); BMI 29.0-29.9,adult Social History Tobacco Use Types Packs/Day Years Used Date Smoking Tobacco: Never Smokeless Tobacco: Never Alcohol Use Standard Drinks/Week Comments No 0 (1 standard drink = 0.6 oz pur e alcohol) PHQ-2 Answer Date Recorded PHQ-2 Score 0 07/17/2019 Comments Unknown Sex and Gender Information Value Date Recorded Sex Assigned at Not on file 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 ENVIRONMENTAL SERVICES SUPERVISOR Gender Identity Not on file Sexual Orientation Not on file documented as of this encounter Last Filed Vital Signs Vital Sign Reading Time Taken Comments Blood Pressure 118/70 12/01/2019 2:35 PM ENVIRONMENTAL SERVICES SUPERVISOR Pulse 94 12/01/2019 2:35 PM ENVIRONMENTAL SERVICES SUPERVISOR Temperature 36.4 ??C (97.6 ??F) 12/01/2019 2 :35 PM ENVIRONMENTAL SERVICES SUPERVISOR Respiratory Rate 36 12/01/2019 2:35 PM ENVIRONMENTAL SERVICES SUPERVISOR Oxygen Saturation 95% 12/01/2019 2:3 5 PM ENVIRONMENTAL SERVICES SUPERVISOR 94 % walking on room air Inhaled Oxygen Concentration - - Weight 84.8 kg (187 lb) 12/01/2019 2:35 PM ENVIRONMENTAL SERVICES SUPERVISOR Height 168.9 cm (5' 6.5 ) 12/01/2019 2: 35 PM ENVIRONMENTAL SERVICES SUPERVISOR Body Mass Index 29.73 12/01/2019 2:35 PM ENVIRONMENTAL SERVICES SUPERVISOR documented in this encounter Progress Notes * Francisco Long MD - 12/01/2019 2:30 PM CST Subjective/Objective Patient ID: Jolene Cedillo is a 73 y.o. female. Chief Complaint Shortness of Breath HPI Please seen today per request for work in for shortness of breath evaluation she states he went to urgent care complete on the 14 of November with shortness of breath cough she was treated with some cough suppressant medication such without much help she is post have a colonoscopy tomorrow but she canceled because of her coughing is going to reschedule at later She states she is not cough up any phlegm just feel short of breath with exertion no chest pain shedoes have a history of invasive breast cancer she has no history of recent travel she states been taking blood pressure medication compliantly She states she has no history of blood clots she states at rest she feels fine but at walking she gets short of breath Review of Systems Vitals: 12/01/19 1435 BP: 118/70 BP Location: Left arm Patient Position: Sitting Pulse: 94 Resp: (!) 36 Temp: 36.4 ??C (97.6 ??F) TempSrc: Oral SpO2: 95% Weight: 84.8 kg (187 lb) Height: 168.9 cm (5' 6.5 ) Physical Exam She fears no describes she is pleasant the nose throat unremarkable neck is supple no JVD no carotid bruits no stridor lungs are clear without rales rhonchi or wheezes cardiovascular regular without murmurs gallops clicks rubs abdomen soft nontender extremities no edema pulse oximeter room air 95% at rest 94% walking in the halls her pulse went from 90 at rest and increased to 123 with walking Assessment/Plan Diagnoses and all orders for this visit: SOB (shortness of breath) on exertion (Primary) - ECG 12 lead BMI 29.0-29.9,adult I instructed the patient to go to emergency room as soon as possible if she has any worsening shortness of breath or any chest pain would develop She has shortness of breath with exertion will get echocardiogram chest x-ray today was unremarkable will obtain laboratory workup get a blood gas may need CT scan rule out pulmonary embolus Side effects, risks, interactions reviewed with patient. Indications for testing discussed. Any further problems to contact us. She was told what to look out for and verbalized understanding. The patient was given the opportunity to have all questions answered today and was in agreement with the plan of care. RONMENTAL SERVICES SUPERVISOR documented in this encounter Plan of Treatment Not on file documented as of this encounter Procedures Procedure Name Priority Date/Time Associated Diagnosis Comments ECG 12-LEAD Routine 12/01/2019 SOB (shortness of breath) on exertion documented in this encounter Results * ECG 12 lead (12/01/2019) Francisco Long MD ECG ORDERABLES Final Result documented in this encounter Visit Diagnoses Diagnosis SOB (shortness of breath) on exertion- Primary Shortness of breath BMI 29.0-29.9,adult documented in this encounter Discontinued Medications Medication Sig Discontinue Reason Start Date End Da te benzonatate (TESSALON) 200 mg capsule Take 1 capsule (200 mg total) by mouth 3 (three) times a day as needed for cough 11/14/2019 12/01/2019 documented as of this encounter Care Teams Subgrade Roller Operator Relationship Specialty Start Date End Date Francisco Long MD PCP - General 02/23/17 05/15/22 Neil Ag MD PhD [address] [place] [address] Radiation Oncologist Radiation Oncology 12/17/18 [place] [address] [address] Referring Physician General Surgery 12/17/18 [place] [address] [address] [address] Medical Oncologist/Batch And Furnace Manager Medical Oncology 12/17/18 documented as of this encounter
--- OUTSIDE RECORDS SUMMARY | 2024-11-16 13:09 | XMS_ITS | Encounter Summary ---
Author Organization [facility] Medical Group Address [address] [facility] [place] [address] Care Team Providers Care Drying Can Worker Name Role Phone Francisco Long MD Primary Care Provider Neil Ag MD PhD Unavailable [phone] Ita Vazquez MD Unavailable Caron Mohan MD Unavailable [phone] Encounter Details Date Type Department Care Team (Late st Contact Info) Description 09/25/2019 Orders Only [facility] [address] [facility] [address] [place] [address] Francisco Long MD [address] [place] [address] [address] [place] [address] Encounter for screening colonoscopy (Primary Dx) Social History Tobacco Use Types Packs/Day Years Used Date Smoking Tobacco: Never Smokeless Tobacco: Never Alcohol Use Standard Drinks/Week Comments No 0 (1 standard drink = 0.6 oz pur e alcohol) PHQ-2 Answer Date Recorded PHQ-2 Score 0 07/17/2019 Comments Unknown Sex and Gender Information Value Date Recorded Sex Assigned at Not on file 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 INFORMATICS DIRECTOR Gender Identity Not on file Sexual Orientation Not on file documented as of this encounter Plan of Treatment Not on file documented as of this encounter Visit Diagnoses Diagnosis Encounter for screening colonoscopy- Primary documented in this encounter Care Teams Drying Can Worker Relationship Specialty Start Date End Date Francisco Long MD PCP - General 02/23/17 05/15/22 Neil Ag MD PhD [address] [place] [address] Radiation Oncologist Radiation Oncology 12/17/18 [place] [address] [address] [facility] [address] [place] [id number] Referring Physician General Surgery 12/17/18 [place] [address] [address] [facility] [address] [place] [id number] Medical Oncologist/Pillowcase Turner Medical Oncology 12/17/18 documented as of this encounter
--- OUTSIDE RECORDS SUMMARY | 2024-11-16 13:09 | XMS_ITS | Encounter Summary ---
Author Organization [facility] Facility Care Team Providers Care Animal Care Specialist Name Role Phone Francisco Long MD Primary Care Provider [phone] Neil Ag MD PhD Unavailable [phone] Ita Vazquez MD Unavailable Caron Mohan MD Unavailable Encounter Details Date Type Department Care Team (Latest Contact Info) Description 09/25/2019 Travel Social History Tobacco Use Types Packs/Day Years Used Date Smoking Tobacco: Never Smokeless Tobacco: Never Alcohol Use Standard Drinks/Week Comments No 0 (1 standard drink = 0.6 oz pur e alcohol) PHQ-2 Answer Date Recorded PHQ-2 Score 0 07/17/2019 Comments Unknown Sex and Gender Information Value Date Recorded Sex Assigned at Not on file 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 ANIMAL CARE SPECIALIST Gender Identity Not on file Sexual Orientation Not on file documented as of this encounter Plan of Treatment Not on file documented as of this encounter Visit Diagnoses Not on filedocumented in this encounter Care Teams Animal Care Specialist Relationship Specialty Start Date End Date Francisco Long MD PCP - General 02/23/17 05/15/22 Neil Ag MD PhD [address] [place] [address] Radiation Oncologist Radiation Oncology 12/17/18 [place] [address] [address] [address] Referring Physician General Surgery 12/17/18 [place] [address] [address] [address] Medical Oncologist/Internal Controls Consultant Medical Oncology 12/17/18 documented as of this encounter
--- OUTSIDE RECORDS SUMMARY | 2024-11-16 13:09 | XMS_ITS | Encounter Summary ---
Author Organization [facility] Address [address] [facility] [address] [place] [address] Care Team Providers Care Marine Service Operator Name Role Phone Francisco Long MD Primary Care Provider [phone] Neil Ag MD PhD Unavailable [phone] Ita estrada MD Unavailable Caron Mohan MD Unavailable Reason for Visit * Reason Onset Date Comments Colonoscopy cancel 11/25/2019 Encounter Details Date Type Department Care Team (Late st Contact Info) Description 11/25/2019 Telephone [facility] Gastroenterology at [address] [place] [phone] Debi Ochoa MA Colonoscopy cancel Social History Tobacco Use Types Packs/Day Years Used Date Smoking Tobacco: Never Smokeless Tobacco: Never Alcohol Use Standard Drinks/Week Comments No 0 (1 standard drink = 0.6 oz pur e alcohol) PHQ-2 Answer Date Recorded PHQ-2 Score 0 07/17/2019 Comments Unknown Sex and Gender Information Value Date Recorded Sex Assigned at Not on file 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 MEDICAL STAFF SERVICES MANAGER Gender Identity Not on file Sexual Orientation Not on file documented as of this encounter Miscellaneous Notes * Telephone Encounter - Debi Ochoa MA - 11/25/2019 11:56 AM CST Pt called in requesting colonoscopy to be canceled due to being sick. Pt will call back at a later time to reschedule CAL STAFF SERVICES MANAGER documented in this encounter Plan of Treatment Not on file documented as of this encounter Visit Diagnoses Not on filedocumented in this encounter Care Teams Marine Service Operator Relationship Specialty Start Date End Date Francisco Long MD PCP - General 02/23/17 05/15/22 Neil Ag MD PhD [address] [place] [address] Radiation Oncologist Radiation Oncology 12/17/18 [place] [address] [address] [facility] [address] [place] [address] Referring Physician General Surgery 12/17/18 [place] [address] [address] [facility] [address] [place] [address] Medical Oncologist/Shucker Medical Oncology 12/17/18 documented as of this encounter
--- OUTSIDE RECORDS SUMMARY | 2024-11-16 13:09 | XMS_ITS | Encounter Summary ---
Author Organization [facility] Medical Group Address [address] [place] [address] Care Team Providers Care Glass Robot Operator Name Role Phone Francisco Long MD Primary Care Provider [phone] Neil Ag MD PhD Unavailable [phone] Ita estrada MD Unavailable Caron Mohan MD Unavailable Encounter Details Date Type Department Care Team (Late st Contact Info) Description 10/01/2019 Telephone [facility] [address] [facility] [address] [place] [address] Winter Martinez MA Social History [...] on file 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 CUSHION ASSEMBLER Gender Identity Not on file Sexual Orientation Not on file documented as of this encounter Miscellaneous Notes * Telephone Encounter - Anita White MA - 10/01/2019 9:43 AM CST Pharmacy given a verbal to split RX. Patient aware ION ASSEMBLER * Telephone Encounter - Francisco Long MD - 10/01/2019 8:42 AM CST Split the prescription in to 2 separate prescriptions ION ASSEMBLER * Telephone Encounter - Winter Martinez MA - 10/01/2019 8:26 AM CST Recd' fax from [facility] regarding the backorder on losartan/hctz 100- 12.5. they are requesting an alternative. Please advise. ION ASSEMBLER documented in this encounter Plan of Treatment Not on file documented as of this encounter Visit Diagnoses Not on filedocumented in this encounter Care Teams Glass Robot Operator Relationship Specialty Start Date End Date Francisco Long MD PCP - General 02/23/17 05/15/22 Neil Ag MD PhD [address] [place] [address] Radiation Oncologist Radiation Oncology 12/17/18 [place] [address] [place], [place] [id number] Referring Physician General Surgery 12/17/18 [place] [address] [facility] [address] [facility], [place] [id number] Medical Oncologist/Deodorizer Operator Medical Oncology 12/17/18 documented as of this encounter
--- OUTSIDE RECORDS SUMMARY | 2024-11-16 13:09 | XMS_ITS | Encounter Summary ---
Author Organization [facility] Medical [facility] Address [address] [facility] [address] [place] [address] Care Team Providers Care Land Surveyor Assistant Name Role Phone Francisco Long MD Primary Care Provider [phone] Neil Ag MD PhD Unavailable [phone] Ita estrada MD Unavailable Caron Mohan MD Unavailable Encounter Details Date Type Department Care Team (Late st Contact Info) Description 09/29/[address] [facility] Gastroenterology at [address] [place] [phone] Jesenia Soto Social History Tobacco Use Types Packs/Day Years Used Date Smoking Tobacco: Never Smokeless Tobacco: Never Alcohol Use Standard Drinks/Week Comments No 0 (1 standard drink = 0.6 oz pur e alcohol) PHQ-2 Answer Date Recorded PHQ-2 Score 0 07/17/2019 Comments Unknown Sex and Gender Information Value Date Recorded Sex Assigned at Not on file 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 BOWLING TEACHER Gender Identity Not on file Sexual Orientation Not on file documented as of this encounter Miscellaneous Notes * Telephone Encounter - Jesenia Soto - 09/29/2019 1:08 PM CST We received a referral from Dr. Long for pt to have a Colonoscopy. Pt is scheduled on 12-02-2019 @7:30 with an arrival at 7:[address] Hwang. Last colonoscopy: 10-05-2009 Family history colon cancer (if yes, relationship to pt): No Personal history colon polyps or colon cancer: No Pt on blood thinner (if yes, list medication and reason for taking): No Has pt had recent stent placement within the last year: No Pt have pacemaker/defibrillator: No Pt diabetic (if yes, insulin or oral meds): No Pt have kidney disease or on dialysis: No Pt on iron: Yes. Pt was instructed to stop taking 1 week prior to procedure Hx of Constipation: No Mechanical Heart valve: No Instructed pt to call with any medical changes and/or medications/insurance. ING TEACHER documented in this encounter Plan of Treatment Not on file documented as of this encounter Visit Diagnoses Diagnosis Encounter for screening colonoscopy- Primary documented in this encounter Care Teams Land Surveyor Assistant Relationship Specialty Start Date End Date Francisco Long MD PCP - General 02/23/17 05/15/22 Neil Ag MD PhD [address] [place] [address] Radiation Oncologist Radiation Oncology 12/17/18 [place] [address] [place], [place] [address] Referring Physician General Surgery 12/17/18 [place] [address] [facility] [address] [place] [address] Medical Oncologist/Inspection Clerk Medical Oncology 12/17/18 documented as of this encounter
--- OUTSIDE RECORDS SUMMARY | 2024-11-16 13:09 | XMS_ITS | Encounter Summary ---
Author Organization [facility] Address [address] [place] [address] Care Team Providers Care Looseleaf Binder Coverer Name Role Phone Francisco Long MD Primary Care Provider Neil Ag MD PhD Unavailable [phone] Ita Vazquez MD Unavailable Caron Mohan MD Unavailable Reason for Visit * Reason Comments Diabetes Hypertension Hyperlipidemia Encounter Details Date Type Department Care Team (Late st Contact Info) Description 09/25/2019 10:30 AM CDT Office Visit [facility] [address] [facility] [address] [place] [address] Francisco Long MD [address] [place] [address] [address] [place], [place] [id number] Pre-diabetes (Primary Dx); Need for immunization against influenza; BMI 30.0-30.9,adult; Mixed hyperlipidemia; Essential hypertension Social History Tobacco Use Types Packs/Day Years Used Date Smoking Tobacco: Never Smokeless Tobacco: Never Alcohol Use Standard Drinks/Week Comments No 0 (1 standard drink = 0.6 oz pur e alcohol) PHQ-2 Answer Date Recorded PHQ-2 Score 0 07/17/2019 Comments Unknown Sex and Gender Information Value Date Recorded Sex Assigned at Not on file 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 ANESTHETIST Gender Identity Not on file Sexual Orientation Not on file documented as of this encounter Last Filed Vital Signs Vital Sign Reading Time Taken Comments Blood Pressure 120/80 09/25/2019 10:49 AM CDT Pulse 60 09/25/2019 10:49 AM CDT Temperature - - Respiratory Rate 20 09/25/2019 10:49 AM CDT Oxygen Saturation - - Inhaled Oxygen Concentration - - Weight 86.2 kg (190 lb) 09/25/2019 10:49 AM CDT Height 168.9 cm (5' 6.5 ) 09/25/2019 10:49 AM CD T Body Mass Index 30.21 09/25/2019 10:49 AM CDT documented in this encounter Progress Notes * Francisco Long MD - 09/25/2019 10:30 AM CDT Subjective/Objective Patient ID: Jolene Cedillo is a 73 y.o. female. Chief Complaint Diabetes; Hypertension; and Hyperlipidemia HPI Patient returns today follow-up diabetes hypertension hyperlipidemia laboratory workup discussed with patient overall she is doing good she can get her flu shot today risk benefits of flu vaccine discussed with her she was encouraged get the new shingles vaccine as soon as possible she will do her check with her pharmacy she has had both pneumonia vaccines and she will get tetanus shot next time she gets a cutter scrape Review of Systems Vitals: 09/25/19 1049 BP: 120/80 BP Location: Right arm Patient Position: Sitting Pulse: 60 Resp: 20 Weight: 86.2 kg (190 lb) Height: 168.9 cm (5' 6.5 ) Physical Exam Feet: Right Foot: Monofilament exam: normal. Left Foot: Monofilament exam: normal. Lungs clear cardiovascular regular abdomen soft nontender monofilament test is negative Assessment/Plan Diagnoses and all orders for this visit: Need for immunization against influenza - Flu Vaccine High Dose Tri PF 65y+ IM - Fluzone BMI 30.0-30.9,adult Side effects, risks, interactions reviewed with patient. [...] as of this encounter Visit Diagnoses Diagnosis Pre-diabetes- Primary Other abnormal glucose Need for immunization against influenza Need for prophylactic vaccination and inoculation against influenza BMI 30.0-30.9,adult Mixed hyperlipidemia Essential hypertension Unspecified essential hypertension documented in this encounter Orders Immunization/Injection Count Last Ordered Date First Ordered Date FLU VACCINE HD TRI PF 65Y+ IM 1 09/25/2019 documented in this encounter Care Teams Looseleaf Binder Coverer Relationship Specialty Start Date End Date Francisco Long MD PCP - General 02/23/17 05/15/22 Neil Ag MD PhD [address] [place] [address] Radiation Oncologist Radiation Oncology 12/17/18 [place] [address] [address] [facility] [address] [place], [place] [id number] Referring Physician General Surgery 12/17/18 [place] [address] [address] [facility] [address] [place] [address] Medical Oncologist/Kindergarten Tutor Medical Oncology 12/17/18 documented as of this encounter
--- OUTSIDE RECORDS SUMMARY | 2024-11-16 13:09 | XMS_ITS | Encounter Summary ---
Author Organization [facility] Medical [facility] Address [address] [place] [address] Care Team Providers Care Superintendent Horticulture Name Role Phone Francisco Long MD Primary Care Provider Neil Ag MD PhD Unavailable [phone] Ita Vazquez MD Unavailable Caron Mohan MD Unavailable Encounter Details Date Type Department Care Team (Late st Contact Info) Description 09/10/2019 Orders Only [facility] [address] [facility] [address] [place] [address] Francisco Long MD [address] [place] [address] [address] [place] [address] Social History Tobacco Use Types Packs/Day Years Used Date Smoking Tobacco: Never Smokeless Tobacco: Never Alcohol Use Standard Drinks/Week Comments No 0 (1 standard drink = 0.6 oz pur e alcohol) PHQ-2 Answer Date Recorded PHQ-2 Score 0 07/17/2019 Comments Unknown Sex and Gender Information Value Date Recorded Sex Assigned at Not on file 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 Gender Identity Not on file Sexual Orientation Not on file documented as of this encounter Plan of Treatment Not on file documented as of this encounter Procedures Procedure Name Priority Date/Time Associated Diagnosis Comments LIPID PANEL WITH REFLEX TO DIRECT LDL Routine 09/10/2019 8:28 AM CDT VITAMIN D 25 HYDROXY Routine 09/10/2019 8:28 AM CDT CBC WITHOUT DIFFERENTIAL Routine 09/10/2019 8:28 AM CDT IRON Routine 09/10/2019 8:28 AM CDT HEMOGLOBIN A1C Routine 09/10/2019 8:28 AM CDT COMPREHENSIVE METABOLIC PANEL Routine 09/10/2019 8:28 AM CDT documented in this encounter Results * (ABNORMAL) Comprehensive metabolic panel (09/10/2019 8:28 AM CDT) Glucose 141(H) 65 - 99 mg/dL [facility] [place] Comment: ? Fasting reference interval For someone without known diabetes, a glucose value >125 mg/dL indicates that they may have diabetes and this should be confirmed with a follow-up test. BUN 18 7 - 25 mg/dL [facility] [place] Creatinine 0.83 0.60 - 0.93 mg/dL [facility] [place] Comment: For patients >49 years of age, the reference limit for Creatinine is approximately 13% higher for people identified as -Bulgarian. eGFR NON-AFR. LATVIAN 70 > OR = 60 mL/min/1 .73m2 [facility] [place] EGFR 82 > OR = 60 mL/min/1 .73m2 [facility] [place] BUN/creat ratio NOT APPLICABLE 6 - 22 (calc) [facility] [place] Sodium 140 135 - 146 mmol/L [facility] [place] Potassium, pl 4.6 3.5 - 5.3 mmol/L [facility] [place] Chloride 103 98 - 110 mmol/L [facility] [place] CO2 29 20 - 32 mmol/L [facility] [place] Calcium 8.9 8.6 - 10.4 mg/dL [facility] [place] Protein, sr 6.2 6.1 - 8.1 g/dL [facility] [place] Albumin 4.0 3.6 - 5.1 g/dL [facility] [place] GLOBULIN 2.2 1.9 - 3.7 g/dL (calc) [facility] [place] Alb/glob ratio 1.8 1.0 - 2.5 (calc) [facility] [place] Bilirubin, total 0.5 0.2 - 1.2 mg/dL [facility] [place] Alk phos 70 33 - 130 U/L [facility] [place] AST 15 10 - 35 U/L [facility] [place] ALT (SGPT) 16 6 - 29 U/L [facility] [place] 09/10/2019 8:28 AM CDT 09/10/2019 8:38 AM CDT Narrative [facility] - 09/11/2019 6:26 AM CDT FASTING:YES PATIENT UNABLE TO VOID; ADVISED TO RETURN FOR COLLECTION. FASTING: YES Resulting Agency Comment Performing Organization Information: ?Site ID: YENNY ?Name: Jesika Matthew ?Address: [facility] [place] [address] ?Director: Alex Garcia D.O., MPH us Francisco Long MD LAB BLOOD ORDERABLES Final Res ult Performing Organization Address [facility] de Phone Number [facility] [place] * (ABNORMAL) Iron level (09/10/2019 8:28 AM CDT) Iron 19(L) 45 - 160 mcg/dL [facility] [place] 09/10/2019 8:28 AM CDT 09/10/2019 8:38 AM CDT Narrative [facility] - 09/11/2019 6:26 AM CDT FASTING:YES PATIENT UNABLE TO VOID; ADVISED TO RETURN FOR COLLECTION. FASTING: YES Resulting Agency Comment Performing Organization Information: ?Site ID: YENNY ?Name: Jesika Matthew ?Address: [facility] [place] [address] ?Director: Alex Garcia D.O., MPH Francisco Long MD LAB BLOOD ORDERABLES Final Res ult Performing Organization Address [facility] de Phone Number [facility] [place] * (ABNORMAL) Lipid panel with reflex to direct LDL (09/10/2019 8:28 AM CDT) Cholesterol 203(H) <200 mg/dL [facility] [place] HDL 53 >50 mg/dL [facility] Triglycerides 140 <150 mg/dL [facility] [place] LDL 125(H) mg/dL (calc) [facility] Comment: Reference range: <100 Desirable range <100 mg/dL for primary prevention; ?? <70 mg/dL for patients with CHD or diabetic patients with > or = 2 CHD risk factors. LDL-C is now calculated using the Harry-Cecilia calculation, which is a validated novel method providing better accuracy than the Friedewald equation in the estimation of LDL-C. Harry SS et al. RANDALL. 2013;310(19): 0990-9773 (http://education.[employer]ita[employer]/faq/RAG616) Chol/HDL ratio 3.8 <5.0 (calc) [facility] Non-HDL, (LDL+VLDL) 150(H) <130 mg/dL (calc) [facility] Comment: For patients with diabetes plus 1 major ASCVD risk factor, treating to a non-HDL-C goal of <100 mg/dL (LDL-C of <70 mg/dL) is considered a therapeutic option. 09/10/2019 8:28 AM CDT 09/10/2019 8:38 AM CDT [facility] - 09/11/2019 6:26 AM CDT FASTING:YES PATIENT UNABLE TO VOID; ADVISED TO RETURN FOR COLLECTION. FASTING: YES Resulting Agency Comment Performing Organization Information: ?Site ID: [place] ?Name: [facility] ?Address: [address] [place] [id number] ?Director: Alex Garcia D.O., MPH us Francisco Long MD LAB BLOOD ORDERABLES Final Res ult [facility] [place] * Vitamin D 25 hydroxy (09/10/2019 8:28 AM CDT) Pathologist [facility] Vitamin D 25-OH 32 30 - 100 ng/mL [facility] Comment: Vitamin D Status ? 25-OH Vitamin D: Deficiency: ?<20 ng/mL Insufficiency: ? 20 - 29 ng/mL Optimal: ? > or = 30 ng/mL For 25-OH Vitamin D testing on patients on D2-supplementation and patients for whom quantitation of D2 and D3 fractions is required, the QuestAssureD(TM) 25-OH VIT D, (D2,D3), LC/MS/MS is recommended: order code 49305 (patients >2yrs). For more information on this test, go to: http://education.Mobivery/faq/TRI579 (This link is being provided for informational/educational purposes only.) 09/10/2019 8:28 AM CDT 09/10/2019 8:38 AM CDT Narrative [facility] - 09/11/2019 6:26 AM CDT FASTING:YES PATIENT UNABLE TO VOID; ADVISED TO RETURN FOR COLLECTION. FASTING: YES Resulting Agency Comment Performing Organization Information: ?Site ID: [place] ?Name: [facility] ?Address: [address] [facility] [place] [address] ?Director: Alex Garcia D.O., MPH us Francisco Long MD LAB BLOOD ORDERABLES Final Res ult [facility] [place] * (ABNORMAL) Hemoglobin A1c (09/10/2019 8:28 AM CDT) Hgb A1C 6.6(H) <5.7 % of total Hgb [facility] Comment: For someone without known diabetes, a [...] for diagnosis of diabetes for children. ?? 09/10/2019 8:28 AM CDT 09/10/2019 8:38 AM CDT Narrative [facility] - 09/11/2019 6:26 AM CDT FASTING:YES PATIENT UNABLE TO VOID; ADVISED TO RETURN FOR COLLECTION. FASTING: YES Resulting Agency Comment Performing Organization Information: ?Site ID: [place] ?Name: [facility] ?Address: [address] [place] [id number] ?Director: Alex Garcia D.O., MPH us Francisco Long MD LAB BLOOD ORDERABLES Final Res ult [facility] [place] * (ABNORMAL) CBC without differential (09/10/2019 8:28 AM CDT) WBC 6.4 3.8 - 10.8 Thousand/uL [facility] [place] RBC, POC 4.36 3.80 - 5.10 Million/uL [facility] [place] Hgb 10.5(L) 11.7 - 15.5 g/dL [facility] [place] Hct 34.1(L) 35.0 - 45.0 % [facility] [place] MCV 78.2(L) 80.0 - 100.0 fL [facility] [place] MCH 24.1(L) 27.0 - 33.0 pg [facility] [place] MCHC 30.8(L) 32.0 - 36.0 g/dL [facility] [place] Rdw 17.1(H) 11.0 - 15.0 % [facility] [place] Platelets 254 140 - 400 Thousand/uL [facility] [place] MPV 11.7 7.5 - 12.5 fL [facility] [place] 09/10/2019 8:28 AM CDT 09/10/2019 8:38 AM CDT Narrative [facility] - 09/11/2019 6:26 AM CDT FASTING:YES PATIENT UNABLE TO VOID; ADVISED TO RETURN FOR COLLECTION. FASTING: YES Resulting Agency Comment Performing Organization Information: ?Site ID: YENNY ?Name: [facility] ?Address: [address] [address] [place] [id number] ?Director: Alex Garcia D.O., MPH us Francisco Long MD LAB BLOOD ORDERABLES Final Res ult [facility] [place] documented in this encounter Visit Diagnoses Not on filedocumented in this encounter Care Teams Superintendent Horticulture Relationship Specialty Start Date End Date Francisco Long MD PCP - General 02/23/17 05/15/22 Neil Ag MD PhD [address] [place] [address] Radiation Oncologist Radiation Oncology 12/17/18 [place] [address] [facility] [address] [place], [place] [id number] Referring Physician General Surgery 12/17/18 [place] [address] [facility] [address] [place], [place] [id number] Medical Oncologist/Senior Design Engineer Medical Oncology 12/17/18 documented as of this encounter
--- OUTSIDE RECORDS SUMMARY | 2024-11-16 13:10 | XMS_ITS | Encounter Summary ---
Author Organization [facility] Healthcare Address [address] [place] [address] Care Team Providers Care Coal Hauler Operator Name Role Phone Francisco Long MD Primary Care Provider [phone] Neil Ag MD PhD Unavailable [phone] Ita estrada MD Unavailable Caron Mohan MD Unavailable Encounter Details Date Type Department Care Team (Late st Contact Info) Description 01/21/2019 Orders Only RAD ONC TREATMENTS Miscellaneous, Not In File Social History Tobacco Use Types Packs/Day Years Used Date Smoking Tobacco: Never Smokeless Tobacco: Never Alcohol Use Standard Drinks/Week Comments No 0 (1 standard drink = 0.6 oz pur e alcohol) Comments Unknown Sex and Gender Information Value Date Recorded Sex Assigned at Not on file 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 GAS 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 ENGINEER Gender Identity Not on file Sexual Orientation Not on file documented as of this encounter Plan of Treatment Not on file documented as of this encounter Procedures Procedure Name Priority Date/Time Associated Diagnosis Comments RAD ONC ARIA SESSION SUMMARY 01/21/2019 10:58 AM GAS COMBUSTION ENGINEER documented in this encounter Results * RAD ONC ARIA SESSION SUMMARY (01/21/2019 10:58 AM GAS COMBUSTION ENGINEER) Course Name C1 L BRS [place] 2019 ARIA Course Plan Date 12/30/2018 12:25 PM ARIA Elapsed Days 13 ARIA Treatment Start Date 01/08/2019 ARIA Treatment Site LT BRST ARIA Dose Given To Date (cGy) 2,660 ARIA Session Dosage Given (cGy) 266 ARIA Plan ID LT BRST:1 ARIA Fractions Treated 10 ARIA Prescribed Dose Per Fraction (cGy) 266 ARIA Prescribed Total Dose (cGy) 4,256 ARIA 01/21/2019 10:5 8 AM GAS COMBUSTION ENGINEER us Not In File Miscellaneous RADIATION ONCOLOGY ORD ERABLES Final Result ARIA documented in this encounter Visit Diagnoses Not on filedocumented in this encounter Care Teams Coal Hauler Operator Relationship Specialty Start Date End Date Francisco Long MD PCP - General 02/23/17 05/15/22 Neil Ag MD PhD [address] [place] [address] Radiation Oncologist Radiation Oncology 12/17/18 [place] [address] [facility] [address] [place] [address] Referring Physician General Surgery 12/17/18 [place] [address] [facility] [address] [place] [address] Medical Oncologist/Emergency Worker Medical Oncology 12/17/18 documented as of this encounter
--- OUTSIDE RECORDS SUMMARY | 2024-11-16 13:10 | XMS_ITS | Encounter Summary ---
Author Organization [facility] Healthcare Address [address] [place] [address] Care Team Providers Care Credit Specialist Name Role Phone Francisco Long MD Primary Care Provider [phone] Neil Ag MD PhD Unavailable [phone] Ita Vazquez MD Unavailable Caron Mohan MD Unavailable Encounter Details Date Type Department Care Team (Late st Contact Info) Description 01/17/2019 10:30 AM DRESSMAKER OR TAILOR Treatment [facility] Radiation Oncology [address] [place] [id number] Social History Tobacco Use Types Packs/Day Years Used Date Smoking Tobacco: Never Smokeless Tobacco: Never Alcohol Use Standard Drinks/Week Comments No 0 (1 standard drink = 0.6 oz pur e alcohol) Comments Unknown Sex and Gender Information Value Date Recorded Sex Assigned at Not on file 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 DRESSMAKER OR TAILOR Gender Identity Not on file Sexual Orientation Not on file documented as of this encounter Plan of Treatment Not on file documented as of this encounter Visit Diagnoses Not on filedocumented in this encounter Care Teams Credit Specialist Relationship Specialty Start Date End Date Francisco Long MD PCP - General 02/23/17 05/15/22 Neil Ag MD PhD [address] [place] [address] Radiation Oncologist Radiation Oncology 12/17/18 [place] [address] [id number] Referring Physician General Surgery 12/17/18 [place] [address] [address] Medical Oncologist/Supervisor Type Disk Quality Control Medical Oncology 12/17/18 documented as of this encounter
--- OUTSIDE RECORDS SUMMARY | 2024-11-16 13:10 | XMS_ITS | Encounter Summary ---
Author Organization [facility] Healthcare Address [address] [place] [address] Care Team Providers Care Data Entry Coordinator Name Role Phone Francisco Long MD Primary Care Provider [phone] Neil Ag MD PhD Unavailable [phone] Ita Vazquez MD Unavailable Caron Mohan MD Unavailable Encounter Details Date Type Department Care Team (Late st Contact Info) Description 01/23/2019 10:30 AM CONCRETE BOOM PUMP OPERATOR Treatment [facility] Radiation Oncology [address] [place] [address] Social History Tobacco Use Types Packs/Day Years Used Date Smoking Tobacco: Never Smokeless Tobacco: Never Alcohol Use Standard Drinks/Week Comments No 0 (1 standard drink = 0.6 oz pur e alcohol) Comments Unknown Sex and Gender Information Value Date Recorded Sex Assigned at Not on file 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 CONCRETE BOOM PUMP OPERATOR Gender Identity Not on file Sexual Orientation Not on file documented as of this encounter Plan of Treatment Not on file documented as of this encounter Visit Diagnoses Not on filedocumented in this encounter Care Teams Data Entry Coordinator Relationship Specialty Start Date End Date Francisco Long MD PCP - General 02/23/17 05/15/22 Neil Ag MD PhD [address] [place] [address] Radiation Oncologist Radiation Oncology 12/17/18 [place] [address] [id number] Referring Physician General Surgery 12/17/18 [place] [address] [address] [address] Medical Oncologist/Cement Tester Assistant Medical Oncology 12/17/18 documented as of this encounter
--- OUTSIDE RECORDS SUMMARY | 2024-11-16 13:10 | XMS_ITS | Encounter Summary ---
Author Organization [facility] Healthcare Address [address] [place] [address] Care Team Providers Care Switchboard Operator Name Role Phone Francisco Long MD Primary Care Provider [phone] Neil Ag MD PhD Unavailable [phone] Ita estrada MD Unavailable Caron Mohan MD Unavailable Encounter Details Date Type Department Care Team (Late st Contact Info) Description 01/29/2019 10:30 AM MARINA DRY DOCK MANAGER Treatment [facility] Radiation Oncology [address] [place] [address] Social History Tobacco Use Types Packs/Day Years Used Date Smoking Tobacco: Never Smokeless Tobacco: Never Alcohol Use Standard Drinks/Week Comments No 0 (1 standard drink = 0.6 oz pur e alcohol) Comments Unknown Sex and Gender Information Value Date Recorded Sex Assigned at Not on file 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 MARINA DRY DOCK MANAGER Gender Identity Not on file Sexual Orientation Not on file documented as of this encounter Nursing Notes * Molly Gupta RN - 01/29/2019 10:30 AM CST Mild edema to lt. Breast, very faint hyperpigmentation of skin. NA DRY DOCK MANAGER documented in this encounter Plan of Treatment Not on file documented as of this encounter Visit Diagnoses Not on filedocumented in this encounter Care Teams Switchboard Operator Relationship Specialty Start Date End Date Francisco Long MD PCP - General 02/23/17 05/15/22 Neil Ag MD PhD [address] [place] [address] Radiation Oncologist Radiation Oncology 12/17/18 [place] [address] [address] [facility] [address] [place] [address] Referring Physician General Surgery 12/17/18 [place] [address] [address] [address] [place] [address] Medical Oncologist/Matrix Bath Operator Medical Oncology 12/17/18 documented as of this encounter
--- OUTSIDE RECORDS SUMMARY | 2024-11-16 13:10 | XMS_ITS | Encounter Summary ---
Author Organization [facility] Healthcare Address [address] [place] [address] Care Team Providers Care Production Line Name Role Phone Francisco Long MD Primary Care Provider [phone] Neil Ag MD PhD Unavailable [phone] Ita estrada MD Unavailable Caron Mohan MD Unavailable Encounter Details Date Type Department Care Team (Late st Contact Info) Description 01/17/2019 Orders Only RAD ONC TREATMENTS Miscellaneous, Not In File Social History Tobacco Use Types Packs/Day Years Used Date Smoking Tobacco: Never Smokeless Tobacco: Never Alcohol Use Standard Drinks/Week Comments No 0 (1 standard drink = 0.6 oz pur e alcohol) Comments Unknown Sex and Gender Information Value Date Recorded Sex Assigned at Not on file 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 AIRCRAFT ENGINE CYLINDER MECHANIC Gender Identity Not on file Sexual Orientation Not on file documented as of this encounter Plan of Treatment Not on file documented as of this encounter Procedures Procedure Name Priority Date/Time Associated Diagnosis Comments RAD ONC ARIA SESSION SUMMARY 01/17/2019 10:35 AM AIRCRAFT ENGINE CYLINDER MECHANIC documented in this encounter Results * RAD ONC ARIA SESSION SUMMARY (01/17/2019 10:35 AM AIRCRAFT ENGINE CYLINDER MECHANIC) Course Name C1 L BRS [place] 2019 ARIA Course Plan Date 12/30/2018 12:25 PM ARIA Elapsed Days 9 ARIA Treatment Start Date 01/08/2019 ARIA Treatment Site LT BRST ARIA Dose Given To Date (cGy) 2,128 ARIA Session Dosage Given (cGy) 266 ARIA Plan ID LT BRST:1 ARIA Fractions Treated 8 ARIA Prescribed Dose Per Fraction (cGy) 266 ARIA Prescribed Total Dose (cGy) 4,256 ARIA 01/17/2019 10:3 5 AM AIRCRAFT ENGINE CYLINDER MECHANIC us Not In File Miscellaneous RADIATION ONCOLOGY ORD ERABLES Final Result ARIA documented in this encounter Visit Diagnoses Not on filedocumented in this encounter Care Teams Production Line Relationship Specialty Start Date End Date Francisco Long MD PCP - General 02/23/17 05/15/22 Neil Ag MD PhD [address] [place] [address] Radiation Oncologist Radiation Oncology 12/17/18 [place] [address] [facility] [address] [place] [address] Referring Physician General Surgery 12/17/18 [place] [address] [facility] [address] [place] [address] Medical Oncologist/Marine Electronics Repairer Medical Oncology 12/17/18 documented as of this encounter
--- OUTSIDE RECORDS SUMMARY | 2024-11-16 13:10 | XMS_ITS | Encounter Summary ---
Author Organization [facility] Healthcare Address [address] [place] [address] Care Team Providers Care Railroad Repairer Name Role Phone Francisco Long MD Primary Care Provider [phone] Neil Ag MD PhD Unavailable [phone] Ita Vazquez MD Unavailable Caron Mohan MD Unavailable Encounter Details Date Type Department Care Team (Late st Contact Info) Description 01/22/2019 10:30 AM SOLDERER TORCH Treatment [facility] Radiation Oncology [address] [place] [address] Social History Tobacco Use Types Packs/Day Years Used Date Smoking Tobacco: Never Smokeless Tobacco: Never Alcohol Use Standard Drinks/Week Comments No 0 (1 standard drink = 0.6 oz pur e alcohol) Comments Unknown Sex and Gender Information Value Date Recorded Sex Assigned at Not on file 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 SOLDERER TORCH Gender Identity Not on file Sexual Orientation Not on file documented as of this encounter Plan of Treatment Not on file documented as of this encounter Visit Diagnoses Not on filedocumented in this encounter Care Teams Railroad Repairer Relationship Specialty Start Date End Date Francisco Long MD PCP - General 02/23/17 05/15/22 Neil Ag MD PhD [address] [place] [address] Radiation Oncologist Radiation Oncology 12/17/18 [place] [address] [id number] Referring Physician General Surgery 12/17/18 [place] [address] [address] Medical Oncologist/Candy Polisher Medical Oncology 12/17/18 documented as of this encounter
--- OUTSIDE RECORDS SUMMARY | 2024-11-16 13:10 | XMS_ITS | Encounter Summary ---
Author Organization [facility] Healthcare Address [address] [place] [address] Care Team Providers Care Work Station Support Specialist Name Role Phone Francisco Long MD Primary Care Provider [phone] Neil Ag MD PhD Unavailable [phone] Ita estrada MD Unavailable Caron Mohan MD Unavailable [phone] Encounter Details Date Type Department Care Team (Late st Contact Info) Description 01/22/2019 Orders Only RAD ONC TREATMENTS Miscellaneous, Not In File Social History Tobacco Use Types Packs/Day Years Used Date Smoking Tobacco: Never Smokeless Tobacco: Never Alcohol Use Standard Drinks/Week Comments No 0 (1 standard drink = 0.6 oz pur e alcohol) Comments Unknown Sex and Gender Information Value Date Recorded Sex Assigned at Not on file 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 MANAGER PHILOSOPHY Gender Identity Not on file Sexual Orientation Not on file documented as of this encounter Plan of Treatment Not on file documented as of this encounter Procedures Procedure Name Priority Date/Time Associated Diagnosis Comments RAD ONC ARIA SESSION SUMMARY 01/22/2019 10:40 AM MANAGER PHILOSOPHY documented in this encounter Results * RAD ONC ARIA SESSION SUMMARY (01/22/2019 10:40 AM MANAGER PHILOSOPHY) Course Name C1 L BRS [place] 2019 ARIA Course Plan Date 12/30/2018 12:25 PM ARIA Elapsed Days 14 ARIA Treatment Start Date 01/08/2019 ARIA Treatment Site LT BRST ARIA Dose Given To Date (cGy) 2,926 ARIA Session Dosage Given (cGy) 266 ARIA Plan ID LT BRST:1 ARIA Fractions Treated 11 ARIA Prescribed Dose Per Fraction (cGy) 266 ARIA Prescribed Total Dose (cGy) 4,256 ARIA 01/22/2019 10:4 0 AM MANAGER PHILOSOPHY us Not In File Miscellaneous RADIATION ONCOLOGY ORD ERABLES Final Result ARIA documented in this encounter Visit Diagnoses Not on filedocumented in this encounter Care Teams Work Station Support Specialist Relationship Specialty Start Date End Date Francisco Long MD PCP - General 02/23/17 05/15/22 Neil Ag MD PhD [address] [place] [address] Radiation Oncologist Radiation Oncology 12/17/18 [place] [address] [facility] [address] [place] [address] Referring Physician General Surgery 12/17/18 [place] [address] [facility] [address] [place] [address] Medical Oncologist/Treer Medical Oncology 12/17/18 documented as of this encounter
--- OUTSIDE RECORDS SUMMARY | 2024-11-16 13:10 | XMS_ITS | Encounter Summary ---
Author Organization [facility] Healthcare Address [address] [place] [address] Care Team Providers Care Petrologist Name Role Phone Francisco Long MD Primary Care Provider [phone] Neil Ag MD PhD Unavailable [phone] Ita estrada MD Unavailable Caron Mohan MD Unavailable Encounter Details Date Type Department Care Team (Late st Contact Info) Description 01/29/2019 Orders Only RAD ONC TREATMENTS Miscellaneous, Not In File Social History Tobacco Use Types Packs/Day Years Used Date Smoking Tobacco: Never Smokeless Tobacco: Never Alcohol Use Standard Drinks/Week Comments No 0 (1 standard drink = 0.6 oz pur e alcohol) Comments Unknown Sex and Gender Information Value Date Recorded Sex Assigned at Not on file 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 INSULATION AND FLOORING ASSEMBLER Gender Identity Not on file Sexual Orientation Not on file documented as of this encounter Plan of Treatment Not on file documented as of this encounter Procedures Procedure Name Priority Date/Time Associated Diagnosis Comments RAD ONC ARIA SESSION SUMMARY 01/29/2019 10:38 AM INSULATION AND FLOORING ASSEMBLER documented in this encounter Results * RAD ONC ARIA SESSION SUMMARY (01/29/2019 10:38 AM INSULATION AND FLOORING ASSEMBLER) Course Name C1 L BRS CT 2019 ARIA Course Plan Date 12/30/2018 12:25 PM ARIA Elapsed Days 21 ARIA Treatment Start Date 01/08/2019 ARIA Treatment Site LT BRST ARIA Dose Given To Date (cGy) 4,256 ARIA Session Dosage Given (cGy) 266 ARIA Plan ID LT BRST:1 ARIA Fractions Treated 16 ARIA Prescribed Dose Per Fraction (cGy) 266 ARIA Prescribed Total Dose (cGy) 4,256 ARIA 01/29/2019 10:3 8 AM INSULATION AND FLOORING ASSEMBLER us Not In File Miscellaneous RADIATION ONCOLOGY ORD ERABLES Final Result ARIA documented in this encounter Visit Diagnoses Not on filedocumented in this encounter Care Teams Petrologist Relationship Specialty Start Date End Date Francisco Long MD PCP - General 02/23/17 05/15/22 Neil Ag MD PhD [address] [place] [address] Radiation Oncologist Radiation Oncology 12/17/18 [place] [address] [facility] [address] [place] [address] Referring Physician General Surgery 12/17/18 [place] [address] [facility] [address] [place] [address] Medical Oncologist/Custom Furrier Medical Oncology 12/17/18 documented as of this encounter
--- OUTSIDE RECORDS SUMMARY | 2024-11-16 13:10 | XMS_ITS | Encounter Summary ---
Author Organization 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 Procedures Dexa Axial Skeleton Bone Density 1 [place] [address] [address] Phone: tel: fax: [address] [phone] Referral ID Status Reason Start Date Expiration Date Visits Re quested Visits Authorized [id number] Closed 02/14/2019 08/25/2020 1 1 Reason for Visit * Diagnostic Imaging (Routine) - Closed Specialty Diagnoses / Procedures Referred By Halima garcia Referred To Contact Diagnoses Menopausal and perimenopausal disorder Malignant neoplasm of upper-inner quadrant of left female breast, 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 Procedures Dexa Axial Skeleton Bone Density 1 [place] [address] [facility] [address] [place] [address] Phone: tel: fax: [address] [phone] Referral ID Status Reason Start Date Expiration Date Visits Re quested Visits Authorized [id number] Closed 02/14/2019 08/25/2020 1 1 Encounter Details Date Type Department Care Team (Latest Contact Info) Description 03/11/2019 9:17 AM CDT - 03/11/2019 11:59 PM CDT Hospital Encounter [facility] [address] [place] [address] Caron Mohan MD [address] [facility] [address] [place] [address] Menopausal and perimenopausal disorder; Malignant neoplasm of upper-inner quadrant of left female breast, unspecified estrogen receptor status (CMS/HCC); Estrogen receptor positive tumor status Discharge Disposition: Discharge to home or self care Social History Tobacco Use Types Packs/Day Years Used Date Smoking Tobacco: Never Smokeless Tobacco: Never Alcohol Use Standard Drinks/Week Comments No 0 (1 standard drink = 0.6 oz pur e alcohol) Comments Unknown Sex and Gender Information Value Date Recorded Sex Assigned at Not on file 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 INSTRUCTOR DANCING Gender Identity Not on file Sexual Orientation Not on file documented as of this encounter Medications at Time of Discharge letrozole (FEMARA) 2.5 mg tablet Take 1 tablet (2.5 mg total) by mouth daily. 30 tablet 11 12/17/2018 0 losartan-hydroCH LOROthiazide (HYZAAR) 100-12.5 mg per tablet Take 1 tablet by mouth daily. 90 tablet 3 12/17/2018 9 methotrexate 2.5 mg tablet Take 12.5 mg [...] SITES Schedule Routine, Read Routine (OP Routine) 03/11/2019 9:51 AM CDT Menopausal and perimenopausal disorder Malignant neoplasm of upper-inner quadrant of left female breast, unspecified estrogen receptor status (CMS/HCC) Estrogen receptor positive tumor status documented in this encounter Results * Dexa Axial Skeleton Bone Density 1 or 2 Site (03/11/2019 9:51 AM CDT) Anatomical Region Laterality Modality Body N/A Other 03/11/2019 10:3 1 AM CDT Impressions 03/11/2019 10:32 AM CDT 1. ??WHO CLASSIFICATION FOR LUMBAR SPINE IS NORMAL. 2. ??WHO CLASSIFICATION FOR HIP IS NORMAL. ?? COMMENT: W.H.O. defines the T-score of between -1 and -2.5 as osteopenia, the level at which there may be an increased risk of developing osteoporosis and fractures in the future. ??Osteoporosis is defined as T-score lower than -2.5 (significantly increased risk of fracture due to osteoporosis). ??T-score is a comparison to peak bone mineral density of young adult reference population. ??Z-score is a comparison to bone mineral density of sex and age group population. ?? Electronically signed by: Enedelia Moore 03/11/2019 10:32 AM CDT EXAM: DEXA Bone Density Axial HISTORY: Unspecified menopausal and perimenopausal disorder. FINDINGS: The mean bone mineral content of the lumbar spine is 1.148 g/cm2. The T-score is 0.9 consistent with normal bone mineral density. The mean bone mineral content of the left hip is 0.940 g/cm2. ??The neck T-score is -0.6. ??The total T-score is 0.0. ??This is consistent with normal bone mineral density. 10 year fracture risk not report because all T score 0 at or above -1.0. Procedure Note Ha Gregg MD - 03/11/2019 EXAM: DEXA Bone Density Axial HISTORY: Unspecified menopausal and perimenopausal disorder. FINDINGS: The mean bone mineral content of the lumbar spine is 1.148 g/cm2. The T-score is 0.9 consistent with normal bone mineral density. The mean bone mineral content of the left hip is 0.940 g/cm2. The neck T-score is -0.6. The total T-score is 0.0. This is consistent with normal bone mineral density. 10 year fracture risk not report because all T score 0 at or above -1.0. IMPRESSION: 1. WHO CLASSIFICATION FOR LUMBAR SPINE IS NORMAL. 2. WHO CLASSIFICATION FOR HIP IS NORMAL. COMMENT: W.H.O. defines the T-score of between -1 and -2.5 as osteopenia, the level at which there may be an increased risk of developing osteoporosis and fractures in the future. Osteoporosis is defined as T-score lower than -2.5 (significantly increased risk of fracture due to osteoporosis). T-score is a comparison to peak bone mineral density of young adult reference population. Z-score is a comparison to bone mineral density of sex and age group population. 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
--- OUTSIDE RECORDS SUMMARY | 2024-11-16 13:10 | XMS_ITS | Encounter Summary ---
Author Organization [facility] Healthcare Address [address] [place] [address] Care Team Providers Care Agricultural Production Engineer Name Role Phone Francisco Long MD Primary Care Provider [phone] Neil Ag MD PhD Unavailable [phone] Ita estrada MD Unavailable Caron Mohan MD Unavailable Encounter Details Date Type Department Care Team (Late st Contact Info) Description 01/28/2019 Orders Only RAD ONC TREATMENTS Miscellaneous, Not In File Social History Tobacco Use Types Packs/Day Years Used Date Smoking Tobacco: Never Smokeless Tobacco: Never Alcohol Use Standard Drinks/Week Comments No 0 (1 standard drink = 0.6 oz pur e alcohol) Comments Unknown Sex and Gender Information Value Date Recorded Sex Assigned at Not on file 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 NUCLEAR FUEL PROCESSING TECHNICIAN Gender Identity Not on file Sexual Orientation Not on file documented as of this encounter Plan of Treatment Not on file documented as of this encounter Procedures Procedure Name Priority Date/Time Associated Diagnosis Comments RAD ONC ARIA SESSION SUMMARY 01/28/2019 10:38 AM NUCLEAR FUEL PROCESSING TECHNICIAN documented in this encounter Results * RAD ONC ARIA SESSION SUMMARY (01/28/2019 10:38 AM NUCLEAR FUEL PROCESSING TECHNICIAN) Course Name C1 L BRS [place] 2019 ARIA Course Plan Date 12/30/2018 12:25 PM ARIA Elapsed Days 20 ARIA Treatment Start Date 01/08/2019 ARIA Treatment Site LT BRST ARIA Dose Given To Date (cGy) 3,990 ARIA Session Dosage Given (cGy) 266 ARIA Plan ID LT BRST:1 ARIA Fractions Treated 15 ARIA Prescribed Dose Per Fraction (cGy) 266 ARIA Prescribed Total Dose (cGy) 4,256 ARIA 01/28/2019 10:3 8 AM NUCLEAR FUEL PROCESSING TECHNICIAN us Not In File Miscellaneous RADIATION ONCOLOGY ORD ERABLES Final Result ARIA documented in this encounter Visit Diagnoses Not on filedocumented in this encounter Care Teams Agricultural Production Engineer Relationship Specialty Start Date End Date Francisco Long MD PCP - General 02/23/17 05/15/22 Neil Ag MD PhD [address] [place] [address] Radiation Oncologist Radiation Oncology 12/17/18 [place] [address] [facility] [address] [place] [address] Referring Physician General Surgery 12/17/18 [place] [address] [facility] [address] [place] [address] Medical Oncologist/Punch Out Crew Member Medical Oncology 12/17/18 documented as of this encounter
--- OUTSIDE RECORDS SUMMARY | 2024-11-16 13:10 | XMS_ITS | Encounter Summary ---
Author Organization [facility] Healthcare Address [address] [place] [address] Care Team Providers Care Senior Mechanical Designer Name Role Phone Francisco Long MD Primary Care Provider [phone] Neil Ag MD PhD Unavailable [phone] Ita Vazquez MD Unavailable Caron Mohan MD Unavailable Encounter Details Date Type Department Care Team (Late st Contact Info) Description 01/20/2019 10:30 AM LABORATORY MILLER Treatment [facility] Radiation Oncology [address] [place] [address] Social History Tobacco Use Types Packs/Day Years Used Date Smoking Tobacco: Never Smokeless Tobacco: Never Alcohol Use Standard Drinks/Week Comments No 0 (1 standard drink = 0.6 oz pur e alcohol) Comments Unknown Sex and Gender Information Value Date Recorded Sex Assigned at Not on file 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 LABORATORY MILLER Gender Identity Not on file Sexual Orientation Not on file documented as of this encounter Plan of Treatment Not on file documented as of this encounter Visit Diagnoses Not on filedocumented in this encounter Care Teams Senior Mechanical Designer Relationship Specialty Start Date End Date Francisco Long MD PCP - General 02/23/17 05/15/22 Neil Ag MD PhD [address] [place] [address] Radiation Oncologist Radiation Oncology 12/17/18 [place] [address] [id number] Referring Physician General Surgery 12/17/18 [place] [address] [address] Medical Oncologist/Worm Farmer Medical Oncology 12/17/18 documented as of this encounter
--- OUTSIDE RECORDS SUMMARY | 2024-11-16 13:10 | XMS_ITS | Encounter Summary ---
Author Organization [facility] Healthcare Address [address] [place] [address] Care Team Providers Care Fulfillment Representative Name Role Phone Francisco Long MD Primary Care Provider [phone] Neil Ag MD PhD Unavailable [phone] Ita estrada MD Unavailable Caron Mohan MD Unavailable Encounter Details Date Type Department Care Team (Late st Contact Info) Description 01/16/2019 Orders Only RAD ONC TREATMENTS Miscellaneous, Not In File Social History Tobacco Use Types Packs/Day Years Used Date Smoking Tobacco: Never Smokeless Tobacco: Never Alcohol Use Standard Drinks/Week Comments No 0 (1 standard drink = 0.6 oz pur e alcohol) Comments Unknown Sex and Gender Information Value Date Recorded Sex Assigned at Not on file 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 SLOTTER OPERATOR HELPER Gender Identity Not on file Sexual Orientation Not on file documented as of this encounter Plan of Treatment Not on file documented as of this encounter Procedures Procedure Name Priority Date/Time Associated Diagnosis Comments RAD ONC ARIA SESSION SUMMARY 01/16/2019 10:21 AM SLOTTER OPERATOR HELPER documented in this encounter Results * RAD ONC ARIA SESSION SUMMARY (01/16/2019 10:21 AM SLOTTER OPERATOR HELPER) Course Name C1 L BRS [place] 2019 ARIA Course Plan Date 12/30/2018 12:25 PM ARIA Elapsed Days 8 ARIA Treatment Start Date 01/08/2019 ARIA Treatment Site LT BRST ARIA Dose Given To Date (cGy) 1,862 ARIA Session Dosage Given (cGy) 266 ARIA Plan ID LT BRST:1 ARIA Fractions Treated 7 ARIA Prescribed Dose Per Fraction (cGy) 266 ARIA Prescribed Total Dose (cGy) 4,256 ARIA 01/16/2019 10:2 1 AM SLOTTER OPERATOR HELPER us Not In File Miscellaneous RADIATION ONCOLOGY ORD ERABLES Final Result ARIA documented in this encounter Visit Diagnoses Not on filedocumented in this encounter Care Teams Fulfillment Representative Relationship Specialty Start Date End Date Francisco Long MD PCP - General 02/23/17 05/15/22 eNil Ag MD PhD [address] [place] [address] Radiation Oncologist Radiation Oncology 12/17/18 [place] [address] [facility] [address] [place] [address] Referring Physician General Surgery 12/17/18 [place] [address] [facility] [address] [place] [address] Medical Oncologist/Covered Buckle Assembler Medical Oncology 12/17/18 documented as of this encounter
--- OUTSIDE RECORDS SUMMARY | 2024-11-16 13:10 | XMS_ITS | Encounter Summary ---
Author Organization [facility] Healthcare Address [address] [place] [address] Care Team Providers Care Industrial Roofer Helper Name Role Phone Francisco Long MD Primary Care Provider [phone] Neil Ag MD PhD Unavailable [phone] Ita estrada MD Unavailable Caron Mohan MD Unavailable Encounter Details Date Type Department Care Team (Late st Contact Info) Description 01/23/2019 Orders Only RAD ONC TREATMENTS Miscellaneous, Not In File Social History Tobacco Use Types Packs/Day Years Used Date Smoking Tobacco: Never Smokeless Tobacco: Never Alcohol Use Standard Drinks/Week Comments No 0 (1 standard drink = 0.6 oz pur e alcohol) Comments Unknown Sex and Gender Information Value Date Recorded Sex Assigned at Not on file 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 COMMERCIAL INSULATOR Gender Identity Not on file Sexual Orientation Not on file documented as of this encounter Plan of Treatment Not on file documented as of this encounter Procedures Procedure Name Priority Date/Time Associated Diagnosis Comments RAD ONC ARIA SESSION SUMMARY 01/23/2019 10:30 AM COMMERCIAL INSULATOR documented in this encounter Results * RAD ONC ARIA SESSION SUMMARY (01/23/2019 10:30 AM COMMERCIAL INSULATOR) Course Name C1 L BRS [place] 2019 ARIA Course Plan Date 12/30/2018 12:25 PM ARIA Elapsed Days 15 ARIA Treatment Start Date 01/08/2019 ARIA Treatment Site LT BRST ARIA Dose Given To Date (cGy) 3,192 ARIA Session Dosage Given (cGy) 266 ARIA Plan ID LT BRST:1 ARIA Fractions Treated 12 ARIA Prescribed Dose Per Fraction (cGy) 266 ARIA Prescribed Total Dose (cGy) 4,256 ARIA 01/23/2019 10:3 0 AM COMMERCIAL INSULATOR us Not In File Miscellaneous RADIATION ONCOLOGY ORD ERABLES Final Result ARIA documented in this encounter Visit Diagnoses Not on filedocumented in this encounter Care Teams Industrial Roofer Helper Relationship Specialty Start Date End Date Francisco Long MD PCP - General 02/23/17 05/15/22 Neil Ag MD PhD [address] [place] [address] Radiation Oncologist Radiation Oncology 12/17/18 [place] [address] [facility] [address] [place] [address] Referring Physician General Surgery 12/17/18 [place] [address] [facility] [address] [place] [address] Medical Oncologist/Power Cleaner Operator Medical Oncology 12/17/18 documented as of this encounter
--- OUTSIDE RECORDS SUMMARY | 2024-11-16 13:10 | XMS_ITS | Encounter Summary ---
Author Organization [facility] Healthcare Address [address] [place] [address] Care Team Providers Care Cigar Binder Name Role Phone Francisco Long MD Primary Care Provider [phone] Neil Ag MD PhD Unavailable [phone] Ita estrada MD Unavailable Caron Mohan MD Unavailable Encounter Details Date Type Department Care Team (Late st Contact Info) Description 01/10/2019 Orders Only RAD ONC TREATMENTS Miscellaneous, Not In File Social History Tobacco Use Types Packs/Day Years Used Date Smoking Tobacco: Never Smokeless Tobacco: Never Alcohol Use Standard Drinks/Week Comments No 0 (1 standard drink = 0.6 oz pur e alcohol) Comments Unknown Sex and Gender Information Value Date Recorded Sex Assigned at Not on file 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 USER SUPPORT SPECIALIST Gender Identity Not on file Sexual Orientation Not on file documented as of this encounter Plan of Treatment Not on file documented as of this encounter Procedures Procedure Name Priority Date/Time Associated Diagnosis Comments RAD ONC ARIA SESSION SUMMARY 01/10/2019 10:38 AM USER SUPPORT SPECIALIST documented in this encounter Results * RAD ONC ARIA SESSION SUMMARY (01/10/2019 10:38 AM USER SUPPORT SPECIALIST) Course Name C1 L BRS [place] 2019 ARIA Course Plan Date 12/30/2018 12:25 PM ARIA Elapsed Days 2 ARIA Treatment Start Date 01/08/2019 ARIA Treatment Site LT BRST ARIA Dose Given To Date (cGy) 798 ARIA Session Dosage Given (cGy) 266 ARIA Plan ID LT BRST:1 ARIA Fractions Treated 3 ARIA Prescribed Dose Per Fraction (cGy) 266 ARIA Prescribed Total Dose (cGy) 4,256 ARIA 01/10/2019 10:3 8 AM USER SUPPORT SPECIALIST us Not In File Miscellaneous RADIATION ONCOLOGY ORD ERABLES Final Result ARIA documented in this encounter Visit Diagnoses Not on filedocumented in this encounter Care Teams Cigar Binder Relationship Specialty Start Date End Date Francisco Long MD PCP - General 02/23/17 05/15/22 Neil Ag MD PhD [address] [place] [address] Radiation Oncologist Radiation Oncology 12/17/18 [place] [address] [address] Referring Physician General Surgery 12/17/18 [place] [address] [facility] [address] [place] [address] Medical Oncologist/Riveter Automobile Brakes Medical Oncology 12/17/18 documented as of this encounter
--- OUTSIDE RECORDS SUMMARY | 2024-11-16 13:10 | XMS_ITS | Encounter Summary ---
Author Organization [facility] Healthcare Address [address] [place] [address] Care Team Providers Care Video Recorder Mechanic Name Role Phone Francisco Long MD Primary Care Provider [phone] Neil Ag MD PhD Unavailable [phone] Ita Vazquez MD Unavailable Caron Mohan MD Unavailable Encounter Details Date Type Department Care Team (Late st Contact Info) Description 01/15/2019 9:45 AM TREE FALLER Treatment [facility] Radiation Oncology [address] [place] [address] Social History Tobacco Use Types Packs/Day Years Used Date Smoking Tobacco: Never Smokeless Tobacco: Never Alcohol Use Standard Drinks/Week Comments No 0 (1 standard drink = 0.6 oz pur e alcohol) Comments Unknown Sex and Gender Information Value Date Recorded Sex Assigned at Not on file 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 TREE FALLER Gender Identity Not on file Sexual Orientation Not on file documented as of this encounter Plan of Treatment Not on file documented as of this encounter Visit Diagnoses Not on filedocumented in this encounter Care Teams Video Recorder Mechanic Relationship Specialty Start Date End Date Francisco Long MD PCP - General 02/23/17 05/15/22 Neil Ag MD PhD [address] [place] [address] Radiation Oncologist Radiation Oncology 12/17/18 [place] [address] [id number] Referring Physician General Surgery 12/17/18 [place] [address] [address] Medical Oncologist/Supervisor Sandblaster Medical Oncology 12/17/18 documented as of this encounter
--- OUTSIDE RECORDS SUMMARY | 2024-11-16 13:10 | XMS_ITS | Encounter Summary ---
Author Organization [facility] Healthcare Address [address] [place] [address] Care Team Providers Care Instructor Of Sociology Name Role Phone Francisco Long MD Primary Care Provider [phone] Neil Ag MD PhD Unavailable [phone] Ita Vazquez MD Unavailable Caron Mohan MD Unavailable Encounter Details Date Type Department Care Team (Late st Contact Info) Description 01/21/2019 10:30 AM SEWING MACHINE ATTACHMENT TESTER Treatment [facility] Radiation Oncology [address] [place] [address] Social History Tobacco Use Types Packs/Day Years Used Date Smoking Tobacco: Never Smokeless Tobacco: Never Alcohol Use Standard Drinks/Week Comments No 0 (1 standard drink = 0.6 oz pur e alcohol) Comments Unknown Sex and Gender Information Value Date Recorded Sex Assigned at Not on file 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 SEWING MACHINE ATTACHMENT TESTER Gender Identity Not on file Sexual Orientation Not on file documented as of this encounter Plan of Treatment Not on file documented as of this encounter Visit Diagnoses Not on filedocumented in this encounter Care Teams Instructor Of Sociology Relationship Specialty Start Date End Date Francisco Long MD PCP - General 02/23/17 05/15/22 Neil Ag MD PhD [address] [place] [address] Radiation Oncologist Radiation Oncology 12/17/18 [place] [address] [id number] Referring Physician General Surgery 12/17/18 [place] [address] [address] [address] Medical Oncologist/Insurance Loss Control Surveyor Medical Oncology 12/17/18 documented as of this encounter
--- OUTSIDE RECORDS SUMMARY | 2024-11-16 13:10 | XMS_ITS | Encounter Summary ---
Author Organization [facility] Healthcare Address [address] [place] [address] Care Team Providers Care Center Line Cutter Operator Name Role Phone Francisco Long MD Primary Care Provider [phone] Neil Ag MD PhD Unavailable [phone] Ita estrada MD Unavailable Caron Mohan MD Unavailable Encounter Details Date Type Department Care Team (Late st Contact Info) Description 01/27/2019 Orders Only RAD ONC TREATMENTS Miscellaneous, Not In File Social History Tobacco Use Types Packs/Day Years Used Date Smoking Tobacco: Never Smokeless Tobacco: Never Alcohol Use Standard Drinks/Week Comments No 0 (1 standard drink = 0.6 oz pur e alcohol) Comments Unknown Sex and Gender Information Value Date Recorded Sex Assigned at Not on file 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 RN TRAVEL Gender Identity Not on file Sexual Orientation Not on file documented as of this encounter Plan of Treatment Not on file documented as of this encounter Procedures Procedure Name Priority Date/Time Associated Diagnosis Comments RAD ONC ARIA SESSION SUMMARY 01/27/2019 10:39 AM RN TRAVEL documented in this encounter Results * RAD ONC ARIA SESSION SUMMARY (01/27/2019 10:39 AM RN TRAVEL) Course Name C1 L BRS [place] 2019 ARIA Course Plan Date 12/30/2018 12:25 PM ARIA Elapsed Days 19 ARIA Treatment Start Date 01/08/2019 ARIA Treatment Site LT BRST ARIA Dose Given To Date (cGy) 3,724 ARIA Session Dosage Given (cGy) 266 ARIA Plan ID LT BRST:1 ARIA Fractions Treated 14 ARIA Prescribed Dose Per Fraction (cGy) 266 ARIA Prescribed Total Dose (cGy) 4,256 ARIA 01/27/2019 10:3 9 AM RN TRAVEL us Not In File Miscellaneous RADIATION ONCOLOGY ORD ERABLES Final Result ARIA documented in this encounter Visit Diagnoses Not on filedocumented in this encounter Care Teams Center Line Cutter Operator Relationship Specialty Start Date End Date Francisco Long MD PCP - General 02/23/17 05/15/22 Neil Ag MD PhD [address] [place] [address] Radiation Oncologist Radiation Oncology 12/17/18 [place] [address] [address] [facility] [address] [place] [address] Referring Physician General Surgery 12/17/18 [place] [address] [facility] [address] [place] [address] Medical Oncologist/Hepatologist Medical Oncology 12/17/18 documented as of this encounter
--- OUTSIDE RECORDS SUMMARY | 2024-11-16 13:10 | XMS_ITS | Encounter Summary ---
Author Organization [facility] Healthcare Address [address] [place] [address] Care Team Providers Care Spray Maker Name Role Phone Francisco Long MD Primary Care Provider [phone] Neil Ag MD PhD Unavailable [phone] Ita Vazquez MD Unavailable Caron Mohan MD Unavailable Encounter Details Date Type Department Care Team (Late st Contact Info) Description 01/28/2019 10:30 AM ENGINEERING SURVEYOR Treatment [facility] Radiation Oncology [address] [place] [address] Social History Tobacco Use Types Packs/Day Years Used Date Smoking Tobacco: Never Smokeless Tobacco: Never Alcohol Use Standard Drinks/Week Comments No 0 (1 standard drink = 0.6 oz pur e alcohol) Comments Unknown Sex and Gender Information Value Date Recorded Sex Assigned at Not on file Legal Sex Female 12:21 PM ENGINEERING SURVEYOR Gender Identity Not on file Sexual Orientation Not on file documented as of this encounter Plan of Treatment Not on file documented as of this encounter Visit Diagnoses Not on filedocumented in this encounter Care Teams Spray Maker Relationship Specialty Start Date End Date Francisco Long MD PCP - General 02/23/17 05/15/22 Neil Ag MD PhD [address] [place] [address] Radiation Oncologist Radiation Oncology 12/17/18 [place] [address] [id number] Referring Physician General Surgery 12/17/18 [place] [address] [address] [address] Medical Oncologist/Municipal Maintenance Worker Medical Oncology 12/17/18 documented as of this encounter
--- OUTSIDE RECORDS SUMMARY | 2024-11-16 13:10 | XMS_ITS | Encounter Summary ---
Author Organization [facility] Healthcare Address [address] [place] [address] Care Team Providers Care Geriatrician Name Role Phone Francisco Long MD Primary Care Provider [phone] Neil Ag MD PhD Unavailable [phone] Ita estrada MD Unavailable Caron Mohan MD Unavailable [phone] Encounter Details Date Type Department Care Team (Late st Contact Info) Description 01/22/2019 [facility] Radiation Oncology [address] [place] [address] Molly Gupta RN Social History Tobacco Use Types Packs/Day Years Used Date Smoking Tobacco: Never Smokeless Tobacco: Never Alcohol Use Standard Drinks/Week Comments No 0 (1 standard drink = 0.6 oz pur e alcohol) Comments Unknown Sex and Gender Information Value Date Recorded Sex Assigned at Not on file Legal Sex Female 12:21 PM POSTBED STITCHER Gender Identity Not on file Sexual Orientation Not on file documented as of this encounter Last Filed Vital Signs Vital Sign Reading Time Taken Comments Blood Pressure 124/62 01/22/2019 10:45 AM POSTBED STITCHER Pulse 86 01/22/2019 10:45 AM POSTBED STITCHER Temperature 36.2 ??C (97.2 ??F) 01/22/2019 10:[address] Respiratory Rate 18 01/22/2019 10:45 AM POSTBED STITCHER Oxygen Saturation - - Inhaled Oxygen Concentration - - Weight 84.8 kg (187 lb) 01/22/2019 10:45 AM POSTBED STITCHER Height - - Body Mass Index 29.73 12/17/2018 2:50 PM POSTBED STITCHER documented in this encounter Progress Notes * Ghislaine Gallo MD - 01/22/2019 10:34 AM CST Staff Physician: Neil Ag MD PhD Referring Physician: Patient Care Team: Ita Vazquez MD as Referring Physician (General Surgery) Date of Service: 01/22/2019 RADIATION ONCOLOGY ON TREATMENT VISIT (OTV) NOTE Diagnosis: Cancer Staging Malignant neoplasm of upper-inner quadrant of left breast in female, estrogen receptor positive (CMS/HCC) Staging form: Breast, AJCC 8th Edition - Pathologic stage from 12/17/2018: Stage IA (pT1b, pN1mi(sn), cM0, G2, ER: Positive, MS: Positive, HER2: Negative) - Signed by Neil Ag MD PhD on 12/17/2018 No diagnosis found. TREATMENT: Radiation Treatments Active Plans LT BRST:1 Most recent treatment: Dose planned: 266 cGy (fraction 11 on 01/22/2019) Total: Dose planned: 4,256 cGy Elapsed Course Treatment Days: 14 Reference Points LT BRST Most recent treatment: Dose given: 266 cGy (on 01/22/2019) Total: Dose given: 2,926 cGy Elapsed Course Treatment Days: 14 Radiation Treatments Patient's record has no historical radiation treatments documented. SUBJECTIVE: Patient denies pain, skin changes, shortness of breath, odynaphagia. She has mild fatigue which maybe weather related. EXAM: BP 124/62 Pulse 86 Temp 36.2 ??C (97.2 ??F) Resp 18 Wt 84.8 kg (187 lb) BMI 29.73 kg/m?? Pain Score and Location 01/22/19 1045 PainSc: 0-No pain No erythema of skin. Radiation Dermatitis: 0 - None Fatigue: 1 - Fatigue relieved by rest Dysphagia: 0 - None ASSESSMENT Experiencing anticipated side effects PLANS Continue with treatment RAD ONC PAIN PLAN: The patient is not currently having any pain that requires changes in pain management. BED STITCHER documented in this encounter Nursing Notes * Molly Gupta RN - 01/22/2019 10:34 AM CST No skin changes. BED STITCHER documented in this encounter Plan of Treatment Not on file documented as of this encounter Visit Diagnoses Not on filedocumented in this encounter Care Teams Geriatrician Relationship Specialty Start Date End Date Francisco Long MD PCP - General 02/23/17 05/15/22 Neil Ag MD PhD [address] [place] [address] Radiation Oncologist Radiation Oncology 12/17/18 [place] [address] [address] [facility] [address] [place] [id number] Referring Physician General Surgery 12/17/18 [place] [address] [address] [facility] [address] [place] [address] Medical Oncologist/Drum Straightener Medical Oncology 12/17/18 documented as of this encounter
--- OUTSIDE RECORDS SUMMARY | 2024-11-16 13:10 | XMS_ITS | Encounter Summary ---
Author Organization [facility] Address [address] [facility] [facility] [address] [place] [address] Care Team Providers Care Printing Plate Setter Name Role Phone Francisco Long MD Primary Care Provider Neil Ag MD PhD Unavailable [phone] Ita Vazquez MD Unavailable Caron Mhoan MD Unavailable [phone] Reason for Visit * Reason Comments Hypertension Hyperlipidemia Encounter Details Date Type Department Care Team (Late st Contact Info) Description 03/17/2019 9:00 AM CDT Office Visit [facility] [address] [facility] [address] [place] [address] Francisco Long MD [address] [place] [address] [address] [place] [address] Pre-diabetes (Primary Dx); BMI 30.0-30.9,adult; Essential hypertension; Vitamin D deficiency; Iron deficiency Social History Tobacco Use Types Packs/Day Years Used Date Smoking Tobacco: Never Smokeless Tobacco: Never Alcohol Use Standard Drinks/Week Comments No 0 (1 standard drink = 0.6 oz pur e alcohol) Comments Unknown Sex and Gender Information Value Date Recorded Sex Assigned at Not on file Legal Sex Female 12:21 PM AUTOMOBILE MECHANIC SUPERVISOR Gender Identity Not on file Sexual Orientation Not on file documented as of this encounter Last Filed Vital Signs Vital Sign Reading Time Taken Comments Blood Pressure 128/78 03/17/2019 8:53 AM CDT Pulse 60 03/17/2019 8:53 AM CDT Temperature - - Respiratory Rate 20 03/17/2019 8:53 AM CDT Oxygen Saturation - - Inhaled Oxygen Concentration - - Weight 87.1 kg (192 lb) 03/17/2019 8:53 AM CDT Height 168.9 cm (5' 6.5 ) 03/17/2019 8:53 AM CDT Body Mass Index 30.53 03/17/2019 8:53 AM CDT documented in this encounter Progress Notes * Francisco Long MD - 03/17/2019 9:00 AM CDT Subjective/Objective Patient ID: Jolene Cedillo is a 73 y.o. female. Chief Complaint Hypertension and Hyperlipidemia HPI 73-year-old seen today follow-up hypertension hyperlipidemia in 2018 she had a left lumpectomy fallwith radiation therapy for breast cancer a few months later she was found have uterine cancer had atotal abdominal hysterectomy and bilateral salpingo-oophorectomy she states he has follow-up with Hematology Oncology on a regular basis everything is going fine there she is taking her blood pressure therapy compliantly the patient states she checked with her pharmacy and the medication she is taking is safe Review of Systems no polyuria no polydipsia Vitals: 03/17/19 0853 BP: 130/80 BP Location: Left arm Patient Position: Sitting Pulse: 60 Resp: 20 Weight: 87.1 kg (192 lb) Height: 168.9 cm (5' 6.5 ) Physical Exam Her blood pressure is confirmed lungs clear cardiovascular regular abdomen soft nontender Assessment/Plan Diagnoses and all orders for this visit: Pre-diabetes (Primary) BMI 30.0-30.9,adult Essential hypertension Vitamin D deficiency Iron deficiency She does have some pre diabetes she will work harder on diet exercise little weight loss Will checklab work before physical 6 months Side effects, risks, interactions reviewed [...] Diagnoses Diagnosis Pre-diabetes- Primary Other abnormal glucose BMI 30.0-30.9,adult Essential hypertension Unspecified essential hypertension Vitamin D deficiency Iron deficiency Disorders of iron metabolism documented in this encounter Discontinued Medications Medication Sig Discontinue Reason Start Date End Da te ergocalciferol (VITAMIN D) 50,000 unit capsule Take 50,000 Units by mouth once a week 03/17/2019 documented as of this encounter Historical Medications * This list may reflect changes made after this encounter. iron,carbonyl-vit ludwig C 65 mg iron- 125 mg tablet,delayed release (DR/EC) Take by mouth daily 12/09/2019 ergocalciferol (VITAMIN D) 50,000 unit capsule Take 50,000 Units by mouth once a week 03/17/2019 added in this encounter Care Teams Printing Plate Setter Relationship Specialty Start Date End Date Francisco Long MD PCP - General 02/23/17 05/15/22 Neil Ag MD PhD [address] [place] [address] Radiation Oncologist Radiation Oncology 12/17/18 [place] [address] [facility] [address] [place], [place] [phone] Referring Physician General Surgery 12/17/18 [place] [address] [facility] [address] [place] [address] Medical Oncologist/Soakers Supervisor Medical Oncology 12/17/18 documented as of this encounter
--- OUTSIDE RECORDS SUMMARY | 2024-11-16 13:10 | XMS_ITS | Encounter Summary ---
Author Organization [facility] Healthcare Address [address] [place] [address] Care Team Providers Care Indian Blanket Weaver Name Role Phone Francisco Long MD Primary Care Provider [phone] Neil Ag MD PhD Unavailable [phone] Ita estrada MD Unavailable Caron Mohan MD Unavailable Encounter Details Date Type Department Care Team (Late st Contact Info) Description 01/14/2019 Orders Only RAD ONC TREATMENTS Miscellaneous, Not In File Social History Tobacco Use Types Packs/Day Years Used Date Smoking Tobacco: Never Smokeless Tobacco: Never Alcohol Use Standard Drinks/Week Comments No 0 (1 standard drink = 0.6 oz pur e alcohol) Comments Unknown Sex and Gender Information Value Date Recorded Sex Assigned at Not on file Legal Sex Female 12:21 PM LAMINATION INSPECTOR Gender Identity Not on file Sexual Orientation Not on file documented as of this encounter Plan of Treatment Not on file documented as of this encounter Procedures Procedure Name Priority Date/Time Associated Diagnosis Comments RAD ONC ARIA SESSION SUMMARY 01/14/2019 10:12 AM LAMINATION INSPECTOR documented in this encounter Results * RAD ONC ARIA SESSION SUMMARY (01/14/2019 10:12 AM LAMINATION INSPECTOR) Course Name C1 L BRS [place] 2019 ARIA Course Plan Date 12/30/2018 12:25 PM ARIA Elapsed Days 6 ARIA Treatment Start Date 01/08/2019 ARIA Treatment Site LT BRST ARIA Dose Given To Date (cGy) 1,330 ARIA Session Dosage Given (cGy) 266 ARIA Plan ID LT BRST:1 ARIA Fractions Treated 5 ARIA Prescribed Dose Per Fraction (cGy) 266 ARIA Prescribed Total Dose (cGy) 4,256 ARIA 01/14/2019 10:1 2 AM LAMINATION INSPECTOR us Not In File Miscellaneous RADIATION ONCOLOGY ORD ERABLES Final Result ARIA documented in this encounter Visit Diagnoses Not on filedocumented in this encounter Care Teams Indian Blanket Weaver Relationship Specialty Start Date End Date Francisco Long MD PCP - General 02/23/17 05/15/22 Neil Ag MD PhD [address] [place] [address] Radiation Oncologist Radiation Oncology 12/17/18 [place] [address] [facility] [address] [place] [address] Referring Physician General Surgery 12/17/18 [place] [address] [facility] [address] [place] [address] Medical Oncologist/Board Operator Medical Oncology 12/17/18 documented as of this encounter
--- OUTSIDE RECORDS SUMMARY | 2024-11-16 13:10 | XMS_ITS | Encounter Summary ---
Author Organization [facility] Healthcare Address [address] [place] [address] Care Team Providers Care Clinical Services Consultant Name Role Phone Francisco Long MD Primary Care Provider [phone] Neil Ag MD PhD Unavailable [phone] Ita estrada MD Unavailable Caron Mohan MD Unavailable Encounter Details Date Type Department Care Team (Late st Contact Info) Description 01/20/2019 Orders Only RAD ONC TREATMENTS Miscellaneous, Not In File Social History Tobacco Use Types Packs/Day Years Used Date Smoking Tobacco: Never Smokeless Tobacco: Never Alcohol Use Standard Drinks/Week Comments No 0 (1 standard drink = 0.6 oz pur e alcohol) Comments Unknown Sex and Gender Information Value Date Recorded Sex Assigned at Not on file Legal Sex Female 12:21 PM BAND MAKER Gender Identity Not on file Sexual Orientation Not on file documented as of this encounter Plan of Treatment Not on file documented as of this encounter Procedures Procedure Name Priority Date/Time Associated Diagnosis Comments RAD ONC ARIA SESSION SUMMARY 01/20/2019 10:17 AM BAND MAKER documented in this encounter Results * RAD ONC ARIA SESSION SUMMARY (01/20/2019 10:17 AM BAND MAKER) Course Name C1 L BRS [place] 2019 ARIA Course Plan Date 12/30/2018 12:25 PM ARIA Elapsed Days 12 ARIA Treatment Start Date 01/08/2019 ARIA Treatment Site LT BRST ARIA Dose Given To Date (cGy) 2,394 ARIA Session Dosage Given (cGy) 266 ARIA Plan ID LT BRST:1 ARIA Fractions Treated 9 ARIA Prescribed Dose Per Fraction (cGy) 266 ARIA Prescribed Total Dose (cGy) 4,256 ARIA 01/20/2019 10:1 7 AM BAND MAKER us Not In File Miscellaneous RADIATION ONCOLOGY ORD ERABLES Final Result ARIA documented in this encounter Visit Diagnoses Not on filedocumented in this encounter Care Teams Clinical Services Consultant Relationship Specialty Start Date End Date Francisco Long MD PCP - General 02/23/17 05/15/22 Neil Ag MD PhD [address] [place] [address] Radiation Oncologist Radiation Oncology 12/17/18 [place] [address] [facility] [facility] [address] [place] [address] Referring Physician General Surgery 12/17/18 [place] [address] [facility] [address] [place] [address] Medical Oncologist/Ride Assembly Supervisor Medical Oncology 12/17/18 documented as of this encounter
--- OUTSIDE RECORDS SUMMARY | 2024-11-16 13:10 | XMS_ITS | Encounter Summary ---
Author Organization [facility] Healthcare Address [address] [place] [address] Care Team Providers Care Airline Transport Pilot Name Role Phone Francisco Long MD Primary Care Provider [phone] Neil Ag MD PhD Unavailable [phone] Ita Vazquez MD Unavailable Caron Mohan MD Unavailable [phone] Encounter Details Date Type Department Care Team (Late st Contact Info) Description 01/24/2019 7:45 AM HOSTING ENGINEER Treatment [facility] Radiation Oncology [address] [place] [address] Social History Tobacco Use Types Packs/Day Years Used Date Smoking Tobacco: Never Smokeless Tobacco: Never Alcohol Use Standard Drinks/Week Comments No 0 (1 standard drink = 0.6 oz pur e alcohol) Comments Unknown Sex and Gender Information Value Date Recorded Sex Assigned at Not on file Legal Sex Female 12:21 PM HOSTING ENGINEER Gender Identity Not on file Sexual Orientation Not on file documented as of this encounter Plan of Treatment Not on file documented as of this encounter Visit Diagnoses Not on filedocumented in this encounter Care Teams Airline Transport Pilot Relationship Specialty Start Date End Date Francisco Long MD PCP - General 02/23/17 05/15/22 Neil Ag MD PhD [address] [place] [address] Radiation Oncologist Radiation Oncology 12/17/18 [place] [address] [id number] Referring Physician General Surgery 12/17/18 [place] [address] [address] [address] Medical Oncologist/Senior Business Objects Developer Medical Oncology 12/17/18 documented as of this encounter
--- OUTSIDE RECORDS SUMMARY | 2024-11-16 13:10 | XMS_ITS | Encounter Summary ---
Author Organization [facility] Healthcare Address [address] [place] [address] Care Team Providers Care Roll Operator Name Role Phone Francisco Long MD Primary Care Provider [phone] Neil Ag MD PhD Unavailable [phone] Ita estrada MD Unavailable Caron Mohan MD Unavailable [phone] Encounter Details Date Type Department Care Team (Late st Contact Info) Description 01/24/2019 Orders Only RAD ONC TREATMENTS Miscellaneous, Not In File Social History Tobacco Use Types Packs/Day Years Used Date Smoking Tobacco: Never Smokeless Tobacco: Never Alcohol Use Standard Drinks/Week Comments No 0 (1 standard drink = 0.6 oz pur e alcohol) Comments Unknown Sex and Gender Information Value Date Recorded Sex Assigned at Not on file Legal Sex Female 12:21 PM DENTAL SERVICES DIRECTOR Gender Identity Not on file Sexual Orientation Not on file documented as of this encounter Plan of Treatment Not on file documented as of this encounter Procedures Procedure Name Priority Date/Time Associated Diagnosis Comments RAD ONC ARIA SESSION SUMMARY 01/24/2019 7:54 AM DENTAL SERVICES DIRECTOR documented in this encounter Results * RAD ONC ARIA SESSION SUMMARY (01/24/2019 7:54 AM DENTAL SERVICES DIRECTOR) Course Name C1 L BRS [place] 2019 ARIA Course Plan Date 12/30/2018 12:25 PM ARIA Elapsed Days 16 ARIA Treatment Start Date 01/08/2019 ARIA Treatment Site LT BRST ARIA Dose Given To Date (cGy) 3,458 ARIA Session Dosage Given (cGy) 266 ARIA Plan ID LT BRST:1 ARIA Fractions Treated 13 ARIA Prescribed Dose Per Fraction (cGy) 266 ARIA Prescribed Total Dose (cGy) 4,256 ARIA 01/24/2019 7:54 AM DENTAL SERVICES DIRECTOR us Not In File Miscellaneous RADIATION ONCOLOGY ORD ERABLES Final Result ARIA documented in this encounter Visit Diagnoses Not on filedocumented in this encounter Care Teams Roll Operator Relationship Specialty Start Date End Date Francisco Long MD PCP - General 02/23/17 05/15/22 Neil Ag MD PhD [address] [place] [address] Radiation Oncologist Radiation Oncology 12/17/18 [place] [address] [address] Referring Physician General Surgery 12/17/18 [place] [address] [facility] [address] [place] [address] Medical Oncologist/Physical Therapy Teacher Medical Oncology 12/17/18 documented as of this encounter
--- OUTSIDE RECORDS SUMMARY | 2024-11-16 13:10 | XMS_ITS | Encounter Summary ---
Author Organization [facility] Healthcare Address [address] [place] [address] Care Team Providers Care Beauty Specialist Name Role Phone Francisco Long MD Primary Care Provider [phone] Neil Ag MD PhD Unavailable [phone] Ita Vazquez MD Unavailable Caron Mohan MD Unavailable Encounter Details Date Type Department Care Team (Late st Contact Info) Description 01/14/2019 10:30 AM TRAVELERS' AID WORKER Treatment [facility] Radiation Oncology [address] [place] [address] Social History Tobacco Use Types Packs/Day Years Used Date Smoking Tobacco: Never Smokeless Tobacco: Never Alcohol Use Standard Drinks/Week Comments No 0 (1 standard drink = 0.6 oz pur e alcohol) Comments Unknown Sex and Gender Information Value Date Recorded Sex Assigned at Not on file Legal Sex Female 12:21 PM TRAVELERS' AID WORKER Gender Identity Not on file Sexual Orientation Not on file documented as of this encounter Plan of Treatment Not on file documented as of this encounter Visit Diagnoses Not on filedocumented in this encounter Care Teams Beauty Specialist Relationship Specialty Start Date End Date Francisco Long MD PCP - General 02/23/17 05/15/22 Neil Ag MD PhD [address] [place] [address] Radiation Oncologist Radiation Oncology 12/17/18 [place] [address] [id number] Referring Physician General Surgery 12/17/18 [place] [address] [address] Medical Oncologist/Investment Counselor Medical Oncology 12/17/18 documented as of this encounter
--- OUTSIDE RECORDS SUMMARY | 2024-11-16 13:10 | XMS_ITS | Encounter Summary ---
Author Organization [facility] Healthcare Address [address] [place] [address] Care Team Providers Care Fluorescent Lamp Replacer Name Role Phone Francisco Long MD Primary Care Provider [phone] Neil Ag MD PhD Unavailable [phone] Ita Vazquez MD Unavailable Caron Mohan MD Unavailable Encounter Details Date Type Department Care Team (Late st Contact Info) Description 01/16/2019 10:30 AM METAL CEILING HANGER Treatment [facility] Radiation Oncology [address] [place] [address] Social History Tobacco Use Types Packs/Day Years Used Date Smoking Tobacco: Never Smokeless Tobacco: Never Alcohol Use Standard Drinks/Week Comments No 0 (1 standard drink = 0.6 oz pur e alcohol) Comments Unknown Sex and Gender Information Value Date Recorded Sex Assigned at Not on file Legal Sex Female 12:21 PM METAL CEILING HANGER Gender Identity Not on file Sexual Orientation Not on file documented as of this encounter Plan of Treatment Not on file documented as of this encounter Visit Diagnoses Not on filedocumented in this encounter Care Teams Fluorescent Lamp Replacer Relationship Specialty Start Date End Date Francisco Long MD PCP - General 02/23/17 05/15/22 Neil Ag MD PhD [address] [place] [address] Radiation Oncologist Radiation Oncology 12/17/18 [place] [address] [id number] Referring Physician General Surgery 12/17/18 [place] [address] [address] Medical Oncologist/Competitive Athlete Medical Oncology 12/17/18 documented as of this encounter
--- OUTSIDE RECORDS SUMMARY | 2024-11-16 13:10 | XMS_ITS | Encounter Summary ---
Author Organization [facility] Address [address] [facility] [address] [place] [address] Care Team Providers Care Search Engine Optimization Manager Name Role Phone Francisco Long MD Primary Care Provider Neil Ag MD PhD Unavailable [phone] Ita Vazquez MD Unavailable Caron Mohan MD Unavailable Encounter Details Date Type Department Care Team (Late st Contact Info) Description 03/05/2019 Orders Only [facility] [address] [facility] [address] [place] [address] Francisco Long MD [address] [place] [address] [address] [place] [address] Social History Tobacco Use Types Packs/Day Years Used Date Smoking Tobacco: Never Smokeless Tobacco: Never Alcohol Use Standard Drinks/Week Comments No 0 (1 standard drink = 0.6 oz pur e alcohol) Comments Unknown Sex and Gender Information Value Date Recorded Sex Assigned at Not on file Legal Sex Female 12:21 PM COVERSTITCH ELASTIC ATTACHER Gender Identity Not on file Sexual Orientation Not on file documented as of this encounter Plan of Treatment Not on file documented as of this encounter Procedures Procedure Name Priority Date/Time Associated Diagnosis Comments CHOL/HDLC RATIO Routine 03/05/2019 9:14 AM CDT LDL-CHOLESTEROL Routine 03/05/2019 9:14 AM CDT NON HDL CHOLESTEROL Routine 03/05/2019 9 :14 AM CDT CBC WITH AUTO DIFFERENTIAL Routine 03/05/2019 9:14 AM CDT TRIGLYCERIDES Routine 03/05/2019 9:14 AM CDT CHOLESTEROL, HDL Routine 03/05/2019 9:14 AM CDT CHOLESTEROL, TOTAL Routine 03/05/2019 9: 14 AM CDT BASIC METABOLIC PANEL Routine 03/05/2019 9:14 AM CDT documented in this encounter Results * (ABNORMAL) Basic metabolic panel (03/05/2019 9:14 AM CDT) Glucose 130(H) 65 - 99 mg/dL [facility] [place] Comment: ? Fasting reference interval For someone without known diabetes, a glucose value >125 mg/dL indicates that they may have diabetes and this should be confirmed with a follow-up test. BUN 19 7 - 25 mg/dL [facility] [place] Creatinine 0.81 0.60 - 0.93 mg/dL [facility] [place] Comment: For patients >49 years of age, the reference limit for Creatinine is approximately 13% higher for people identified as -[place] Citizen. eGFR NON-AFR. NIGERIEN 73 > OR = 60 mL/min/1 .73m2 [facility] EGFR 84 > OR = 60 mL/min/1 .73m2 [facility] BUN/creat ratio NOT APPLICABLE 6 - 22 (calc) [facility] Sodium 140 135 - 146 mmol/L [facility] [place] Potassium, pl 4.7 3.5 - 5.3 mmol/L [facility] [place] Chloride 102 98 - 110 mmol/L [facility] CO2 30 20 - 32 mmol/L [facility] [place] Calcium 9.2 8.6 - 10.4 mg/dL [facility] [place] 03/05/2019 9:14 AM CDT 03/05/2019 9:18 AM CDT Narrative Resulting Agency Comment Performing Organization Information: ?Site ID: [place] ?Name: Jesika Matthew ?Address: [facility] [place] [id number] ?Director: Alex Garcia D.O., MPH Francisco Long MD LAB BLOOD ORDERABLES Final Res ult Performing Organization Address [facility] Co de Phone Number YENNY Carrillo * (ABNORMAL) NON HDL CHOLESTEROL (03/05/2019 9:14 AM CDT) Non-HDL, (LDL+VLDL) 178(H) <130 mg/dL (calc) [facility] Comment: For patients with diabetes plus 1 major ASCVD risk factor, treating to a non-HDL-C goal of <100 mg/dL (LDL-C of <70 mg/dL) is considered a therapeutic option. 03/05/2019 9:14 AM CDT 03/05/2019 9:18 AM CDT Narrative Resulting Agency Comment Performing Organization Information: ?Site ID: YENNY ?Name: Jesika Matthew ?Address: [facility] [place] [id number] ?Director: Alex Garcia D.O. MPH Francisco Long MD LAB BLOOD ORDERABLES Final Res ult Performing Organization Address [facility] Co de Phone Number YENNY Carrillo * CHOL/HDLC RATIO (03/05/2019 9:14 AM CDT) Chol/HDL ratio 3.7 <5.0 (calc) [facility] 03/05/2019 9:14 AM CDT 03/05/2019 9:18 AM CDT Narrative Resulting Agency Comment Performing Organization Information: ?Site ID: [place] ?Name: Jesika Matthew ?Address: [facility] [place] [id number] ?Director: Alex Garcia D.O., MPH us Francisco Long MD LAB BLOOD ORDERABLES Final Res ult Performing Organization Address [facility] de Phone Number YEN[facility] Carrillo * (ABNORMAL) LDL-Cholesterol (03/05/2019 9:14 AM CDT) LDL 148(H) mg/dL (calc) [facility] Comment: Reference range: <100 Desirable range <100 mg/dL for primary prevention; ?? <70 mg/dL for patients with CHD or diabetic patients with > or = 2 CHD risk factors. LDL-C is now calculated using the Norma calculation, which is a validated novel method providing better accuracy than the Friedewald equation in the estimation of LDL-C. Harry YUAN et al. RANDALL. 2013;310(19): 4762-7630 (http://education.[employer]/faq/DEP517) 03/05/2019 9:14 AM CDT 03/05/2019 9:18 AM CDT Narrative Resulting Agency Comment Performing Organization Information: ?Site ID: YENNY ?Name: Jesika Matthew ?Address: [facility] [place] [id number] ?Director: Alex Garcia D.O., MPH us Francisco Long MD LAB BLOOD ORDERABLES Final Res ult Performing Organization Address [facility] de Phone Number YENNY Carrillo * (ABNORMAL) Triglycerides (03/05/2019 9:14 AM CDT) Triglycerides 160(H) <150 mg/dL [facility] 03/05/2019 9:14 AM CDT 03/05/2019 9:18 AM CDT Narrative Resulting Agency Comment Performing Organization Information: ?Site ID: YENNY ?Name: Jesika Matthew ?Address: [facility] [place] [id number] ?Director: Alex Garcia D.O., MPH us Francisco Long MD LAB BLOOD ORDERABLES Final Res ult Performing Organization Address [facility] Co de Phone Number [facility] [place] * Cholesterol, HDL (03/05/2019 9:14 AM CDT) HDL 65 >50 mg/dL [facility] [place] 03/05/2019 9:14 AM CDT 03/05/2019 9:18 AM CDT Narrative Resulting Agency Comment Performing Organization Information: ?Site ID: [place] ?Name: [facility] ?Address: [facility] [place] [id number] ?Director: Alex Garcia D.O., MPH us Francisco Long MD LAB BLOOD ORDERABLES Final Res ult Performing Organization Address [facility] de Phone Number [facility] [facility] * (ABNORMAL) Cholesterol, total (03/05/2019 9:14 AM CDT) Cholesterol 243(H) <200 mg/dL [facility] 03/05/2019 9:14 AM CDT 03/05/2019 9:18 AM CDT Narrative Resulting Agency Comment Performing Organization Information: ?Site ID: [place] ?Name: [facility] ?Address: [facility] [place] [id number] ?Director: Alex Garcia D.O. MPH Francisco Long MD LAB BLOOD ORDERABLES Final Res ult Performing Organization Address [facility] Co de Phone Number [facility] [facility] * (ABNORMAL) CBC with auto differential (03/05/2019 9:14 AM CDT) WBC 5.8 3.8 - 10.8 Thousand/u L [facility] RBC, POC 4.50 3.80 - 5.10 Million/uL [facility] Hgb 11.6(L) 11.7 - 15.5 g/dL [facility] Hct 37.7 35.0 - 45.0 % [facility] MCV 83.8 80.0 - 100.0 fL [facility] MCH 25.8(L) 27.0 - 33.0 pg [facility] MCHC 30.8(L) 32.0 - 36.0 g/dL [facility] Rdw 17.7(H) 11.0 - 15.0 % [facility] Platelets 253 140 - 400 Thousand/u L [facility] MPV 9.0 7.5 - 12.5 fL [facility] Neutrophils, abs 4,704 1,500 - 7,800 cells/uL [facility] Lymphocytes, abs 522(L) 850 - 3,900 cells/uL [facility] Monocyte abs 354 200 - 950 cells/uL [facility] Eosinophils, abs 191 15 - 500 cells/uL [facility] Basophils, abs 29 0 - 200 cells/uL [facility] Neutrophils 81.1 % [facility] Lymphocyte pct 9.0 % [facility] Monocytes 6.1 % [facility] Eosinophils 3.3 % [facility] Basophils 0.5 % [facility] [place] 03/05/2019 9:14 AM CDT 03/05/2019 9:18 AM CDT Narrative Resulting Agency Comment Performing Organization Information: ?Site ID: YENNY ?Name: [facility] ?Address: [id number] [place] [address] [phone] ?Director: Alex Garcia D.O., MPH Francisco Long MD LAB BLOOD ORDERABLES Final Res ult [facility] [facility] documented in this encounter Visit Diagnoses Not on filedocumented in this encounter Care Teams Search Engine Optimization Manager Relationship Specialty Start Date End Date Francisco Long MD PCP - General 02/23/17 05/15/22 Neil Ag MD PhD [address] [place] [address] Radiation Oncologist Radiation Oncology 12/17/18 [place] [address] [place] [address] Referring Physician General Surgery 12/17/18 [place] [address] [address] [place] [address] Medical Oncologist/Air Brush Operator Medical Oncology 12/17/18 documented as of this encounter
--- OUTSIDE RECORDS SUMMARY | 2024-11-16 13:10 | XMS_ITS | Encounter Summary ---
Author Organization [facility] Healthcare Address [address] [place] [address] Care Team Providers Care Art Museum Docent Name Role Phone Francisco Long MD Primary Care Provider [phone] Neil Ag MD PhD Unavailable [phone] Ita Vazquez MD Unavailable Caron Mohan MD Unavailable Encounter Details Date Type Department Care Team (Late st Contact Info) Description 01/13/2019 10:30 AM REEL TENDER Treatment [facility] Radiation Oncology [address] [place] [address] Social History Tobacco Use Types Packs/Day Years Used Date Smoking Tobacco: Never Smokeless Tobacco: Never Alcohol Use Standard Drinks/Week Comments No 0 (1 standard drink = 0.6 oz pur e alcohol) Comments Unknown Sex and Gender Information Value Date Recorded Sex Assigned at Not on file Legal Sex Female 12:21 PM REEL TENDER Gender Identity Not on file Sexual Orientation Not on file documented as of this encounter Plan of Treatment Not on file documented as of this encounter Visit Diagnoses Not on filedocumented in this encounter Care Teams Art Museum Docent Relationship Specialty Start Date End Date Francisco Long MD PCP - General 02/23/17 05/15/22 Neil Ag MD PhD [address] [place] [address] Radiation Oncologist Radiation Oncology 12/17/18 [place] [address] [id number] Referring Physician General Surgery 12/17/18 [place] [address] [address] Medical Oncologist/Anodize Machine Operator Medical Oncology 12/17/18 documented as of this encounter
--- OUTSIDE RECORDS SUMMARY | 2024-11-16 13:10 | XMS_ITS | Encounter Summary ---
Author Organization [facility] Healthcare Address [address] [place] [address] Care Team Providers Care Cae Engineer Name Role Phone Francisco Long MD Primary Care Provider [phone] Neil Ag MD PhD Unavailable [phone] Ita estrada MD Unavailable Caron Mohan MD Unavailable Encounter Details Date Type Department Care Team (Late st Contact Info) Description 01/15/2019 Orders Only RAD ONC TREATMENTS Miscellaneous, Not In File Social History Tobacco Use Types Packs/Day Years Used Date Smoking Tobacco: Never Smokeless Tobacco: Never Alcohol Use Standard Drinks/Week Comments No 0 (1 standard drink = 0.6 oz pur e alcohol) Comments Unknown Sex and Gender Information Value Date Recorded Sex Assigned at Not on file Legal Sex Female 12:21 PM ELECTROENCEPHALOGRAPHIC TECHNICIAN Gender Identity Not on file Sexual Orientation Not on file documented as of this encounter Plan of Treatment Not on file documented as of this encounter Procedures Procedure Name Priority Date/Time Associated Diagnosis Comments RAD ONC ARIA SESSION SUMMARY 01/15/2019 9:32 AM ELECTROENCEPHALOGRAPHIC TECHNICIAN documented in this encounter Results * RAD ONC ARIA SESSION SUMMARY (01/15/2019 9:32 AM ELECTROENCEPHALOGRAPHIC TECHNICIAN) Course Name C1 L BRS [place] 2019 ARIA Course Plan Date 12/30/2018 12:25 PM ARIA Elapsed Days 7 ARIA Treatment Start Date 01/08/2019 ARIA Treatment Site LT BRST ARIA Dose Given To Date (cGy) 1,596 ARIA Session Dosage Given (cGy) 266 ARIA Plan ID LT BRST:1 ARIA Fractions Treated 6 ARIA Prescribed Dose Per Fraction (cGy) 266 ARIA Prescribed Total Dose (cGy) 4,256 ARIA 01/15/2019 9:32 AM ELECTROENCEPHALOGRAPHIC TECHNICIAN us Not In File Miscellaneous RADIATION ONCOLOGY ORD ERABLES Final Result ARIA documented in this encounter Visit Diagnoses Not on filedocumented in this encounter Care Teams Cae Engineer Relationship Specialty Start Date End Date Francisco Long MD PCP - General 02/23/17 05/15/22 Neil Ag MD PhD [address] [place] [address] Radiation Oncologist Radiation Oncology 12/17/18 [place] [address] [facility] [address] [place] [address] Referring Physician General Surgery 12/17/18 [place] [address] [facility] [address] [place] [address] Medical Oncologist/Roofing Superintendent Medical Oncology 12/17/18 documented as of this encounter
--- OUTSIDE RECORDS SUMMARY | 2024-11-16 13:10 | XMS_ITS | Encounter Summary ---
Author Organization [facility] Healthcare Address [address] [place] [address] Care Team Providers Care Mis Director Name Role Phone Francisco Long MD Primary Care Provider [phone] Neil Ag MD PhD Unavailable [phone] Ita Vazquez MD Unavailable Caron Mohan MD Unavailable Encounter Details Date Type Department Care Team (Late st Contact Info) Description 01/10/2019 10:30 AM PRIMARY SCHOOL PRINCIPAL Treatment [facility] Radiation Oncology [address] [place] [address] Social History Tobacco Use Types Packs/Day Years Used Date Smoking Tobacco: Never Smokeless Tobacco: Never Alcohol Use Standard Drinks/Week Comments No 0 (1 standard drink = 0.6 oz pur e alcohol) Comments Unknown Sex and Gender Information Value Date Recorded Sex Assigned at Not on file Legal Sex Female 12:21 PM PRIMARY SCHOOL PRINCIPAL Gender Identity Not on file Sexual Orientation Not on file documented as of this encounter Plan of Treatment Not on file documented as of this encounter Visit Diagnoses Not on filedocumented in this encounter Care Teams Mis Director Relationship Specialty Start Date End Date Francisco Long MD PCP - General 02/23/17 05/15/22 Neil Ag MD PhD [address] [place] [address] Radiation Oncologist Radiation Oncology 12/17/18 [place] [address] [id number] Referring Physician General Surgery 12/17/18 [place] [address] [address] [address] Medical Oncologist/Washer Cutter Medical Oncology 12/17/18 documented as of this encounter
--- OUTSIDE RECORDS SUMMARY | 2024-11-16 13:10 | XMS_ITS | Encounter Summary ---
Author Organization [facility] Healthcare Address [address] [place] [address] Care Team Providers Care Branch Library Clerk Name Role Phone Francisco Long MD Primary Care Provider [phone] Neil Ag MD PhD Unavailable [phone] Ita estrada MD Unavailable Caron Mohan MD Unavailable Encounter Details Date Type Department Care Team (Late st Contact Info) Description 01/13/2019 Orders Only RAD ONC TREATMENTS Miscellaneous, Not In File Social History Tobacco Use Types Packs/Day Years Used Date Smoking Tobacco: Never Smokeless Tobacco: Never Alcohol Use Standard Drinks/Week Comments No 0 (1 standard drink = 0.6 oz pur e alcohol) Comments Unknown Sex and Gender Information Value Date Recorded Sex Assigned at Not on file Legal Sex Female 12:21 PM DENTIST PRIVATE PRACTICE Gender Identity Not on file Sexual Orientation Not on file documented as of this encounter Plan of Treatment Not on file documented as of this encounter Procedures Procedure Name Priority Date/Time Associated Diagnosis Comments RAD ONC ARIA SESSION SUMMARY 01/13/2019 10:17 AM DENTIST PRIVATE PRACTICE documented in this encounter Results * RAD ONC ARIA SESSION SUMMARY (01/13/2019 10:17 AM DENTIST PRIVATE PRACTICE) Course Name C1 L BRS [place] 2019 ARIA Course Plan Date 12/30/2018 12:25 PM ARIA Elapsed Days 5 ARIA Treatment Start Date 01/08/2019 ARIA Treatment Site LT BRST ARIA Dose Given To Date (cGy) 1,064 ARIA Session Dosage Given (cGy) 266 ARIA Plan ID LT BRST:1 ARIA Fractions Treated 4 ARIA Prescribed Dose Per Fraction (cGy) 266 ARIA Prescribed Total Dose (cGy) 4,256 ARIA 01/13/2019 10:1 7 AM DENTIST PRIVATE PRACTICE us Not In File Miscellaneous RADIATION ONCOLOGY ORD ERABLES Final Result ARIA documented in this encounter Visit Diagnoses Not on filedocumented in this encounter Care Teams Branch Library Clerk Relationship Specialty Start Date End Date Francisco Lnog MD PCP - General 02/23/17 05/15/22 Neil Ag MD PhD [address] [place] [address] Radiation Oncologist Radiation Oncology 12/17/18 [place] [address] [facility] [address] [place] [address] Referring Physician General Surgery 12/17/18 [place] [address] [facility] [address] [place] [address] Medical Oncologist/Grounds Caretaker Medical Oncology 12/17/18 documented as of this encounter
--- OUTSIDE RECORDS SUMMARY | 2024-11-16 13:10 | XMS_ITS | Encounter Summary ---
Author Organization [facility] Healthcare Address [address] [place] [address] Care Team Providers Care Sales Ambassador Name Role Phone Francisco Long MD Primary Care Provider [phone] Neil Ag MD PhD Unavailable [phone] Ita Vazquez MD Unavailable Caron Mohan MD Unavailable Reason for Visit * Reason Onset Date Comments Completion of Therapy 01/29/2019 Encounter Details Date Type Department Care Team (Late st Contact Info) Description 01/29/2019 Documentation [facility] Radiation Oncology [address] [place] [address] Neil Ag MD PhD [address] [place] [address] Completion of Therapy Social History Tobacco Use Types Packs/Day Years Used Date Smoking Tobacco: Never Smokeless Tobacco: Never Alcohol Use Standard Drinks/Week Comments No 0 (1 standard drink = 0.6 oz pur e alcohol) Comments Unknown Sex and Gender Information Value Date Recorded Sex Assigned at Not on file Legal Sex Female 12:21 PM KILN FURNITURE SAW TENDER Gender Identity Not on file Sexual Orientation Not on file documented as of this encounter Progress Notes * Neil Ag MD PhD - 01/29/2019 11:59 PM CST Patient Name: Jolene Cedillo Date of : 1945 Date of Visit: 01/29/2019 Dictating Physician:Neil Ag MD PhD Attending Physician: Neil Ag MD PhD RADIATION ONCOLOGY COMPLETION OF THERAPY (COT) Identifying Data: Cancer Staging Malignant neoplasm of upper-inner quadrant of left breast in female, estrogen receptor positive (CMS/HCC) Staging form: Breast, AJCC 8th Edition - Pathologic stage from 12/17/2018: Stage IA (pT1b, pN1mi(sn), cM0, G2, ER: Positive, LA: Positive, HER2: Negative) - Signed by Neil Ag MD PhD on 12/17/2018 Jolene Cedillo is a 73 y.o. 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 Treatment Delivered: Radiation Treatments Active Plans LT BRST:1 Most recent treatment: Dose planned: 266 cGy (fraction 16 on 01/29/2019) Total: Dose planned: 4,256 cGy Elapsed Course Treatment Days: 21 Reference Points LT BRST Most recent treatment: Dose given: 266 cGy (on 01/29/2019) Total: Dose given: 4,256 cGy Elapsed Course Treatment Days: 21 Treatment Delivery and Energy: Prone Tangents, 6X Bolus: n/a Concurrent Therapy: N/A Pain Plan: RAD ONC PAIN PLAN: The patient is not currently having any pain that requires changes in pain management. Tolerance to Treatment: Ms. Cedillo completed therapy without any significant acute toxicities. By the 6th fraction, she reported some mild fatigue. By the 16th fraction, she developed some mild edema and minimal erythemain the left breast. She did not develop any brisk erythema or desquamation during her course of treatment. Disposition: ?? As the patient has done very well with treatment with no significant dermatitis, follow up in clinic in 6 months. ?? Post treatment skin care instructions given. ?? Patient was instructed to call with any concerns prior to scheduled follow up visit. Neil Ag MD PhD supervised the patient???s radiation treatment as summarized. FURNITURE SAW TENDER documented in this encounter Plan of Treatment Not on file documented as of this encounter Visit Diagnoses Diagnosis Malignant neoplasm of upper-inner quadrant of left breast in female, estrogen receptor positive (HCC)- Primary documented in this encounter Care Teams Sales Ambassador Relationship Specialty Start Date End Date Francisco Long MD PCP - General 02/23/17 05/15/22 Neil Ag MD PhD [address] [place] [address] Radiation Oncologist Radiation Oncology 12/17/18 [place] [address] [facility] [address] [place], [place] [id number] Referring Physician General Surgery 12/17/18 [place] [address] [facility] [address] [place], [place] [id number] Medical Oncologist/Boiler Room Helper Medical Oncology 12/17/18 documented as of this encounter
--- OUTSIDE RECORDS SUMMARY | 2024-11-16 13:10 | XMS_ITS | Encounter Summary ---
Author Organization [facility] Healthcare Address [address] [place] [address] Care Team Providers Care Tool Planner Name Role Phone Francisco Long MD Primary Care Provider [phone] Neil Ag MD PhD Unavailable [phone] Ita Vazquez MD Unavailable Caron Mohan MD Unavailable [phone] Encounter Details Date Type Department Care Team (Late st Contact Info) Description 01/27/2019 10:30 AM CLIENT TECHNICAL SUPPORT ASSOCIATE Treatment [facility] Radiation Oncology [address] [place] [address] Social History Tobacco Use Types Packs/Day Years Used Date Smoking Tobacco: Never Smokeless Tobacco: Never Alcohol Use Standard Drinks/Week Comments No 0 (1 standard drink = 0.6 oz pur e alcohol) Comments Unknown Sex and Gender Information Value Date Recorded Sex Assigned at Not on file Legal Sex Female 12:21 PM CLIENT TECHNICAL SUPPORT ASSOCIATE Gender Identity Not on file Sexual Orientation Not on file documented as of this encounter Plan of Treatment Not on file documented as of this encounter Visit Diagnoses Not on filedocumented in this encounter Care Teams Tool Planner Relationship Specialty Start Date End Date Francisco Long MD PCP - General 02/23/17 05/15/22 Neil Ag MD PhD [address] [place] [address] Radiation Oncologist Radiation Oncology 12/17/18 [place] [address] [id number] Referring Physician General Surgery 12/17/18 [place] [address] [address] [address] Medical Oncologist/Traveling Accountant Medical Oncology 12/17/18 documented as of this encounter
--- OUTSIDE RECORDS SUMMARY | 2024-11-16 13:10 | XMS_ITS | Encounter Summary ---
Author Organization [facility] Healthcare Address [address] [place] [address] Care Team Providers Care Drum Worker Name Role Phone Francisco Long MD Primary Care Provider [phone] Neil Ag MD PhD Unavailable [phone] Ita Vazquez MD Unavailable Caron Mohan MD Unavailable Encounter Details Date Type Department Care Team (Late st Contact Info) Description 01/29/2019 OTV [facility] Radiation Oncology [address] [place] [address] Neil Ag MD PhD [address] [place] [address] Malignant neoplasm of upper-inner quadrant of left breast in female, estrogen receptor positive (CMS/HCC) (Primary Dx) Social History Tobacco Use Types Packs/Day Years Used Date Smoking Tobacco: Never Smokeless Tobacco: Never Alcohol Use Standard Drinks/Week Comments No 0 (1 standard drink = 0.6 oz pur e alcohol) Comments Unknown Sex and Gender Information Value Date Recorded Sex Assigned at Not on file Legal Sex Female 12:21 PM CITIZENSHIP INSTRUCTOR Gender Identity Not on file Sexual Orientation Not on file documented as of this encounter Last Filed Vital Signs Vital Sign Reading Time Taken Comments Blood Pressure 157/74 01/29/2019 10:51 AM CITIZENSHIP INSTRUCTOR Pulse 95 01/29/2019 10:51 AM CITIZENSHIP INSTRUCTOR Temperature 36.6 ??C (97.9 ??F) 01/29/2019 10:[address] Respiratory Rate 18 01/29/2019 10:51 AM CITIZENSHIP INSTRUCTOR Oxygen Saturation - - Inhaled Oxygen Concentration - - Weight 84.8 kg (187 lb) 01/29/2019 10:51 AM CITIZENSHIP INSTRUCTOR Height - - Body Mass Index 29.73 12/17/2018 2:50 PM CITIZENSHIP INSTRUCTOR documented in this encounter Progress Notes * Neil Ag MD PhD - 01/29/2019 10:39 AM CST Staff Physician: Neil Ag MD PhD Referring Physician: Patient Care Team: Ita Vazquez MD as Referring Physician (General Surgery) Date of Service: 01/29/2019 RADIATION ONCOLOGY ON TREATMENT VISIT (OTV) NOTE Diagnosis: Cancer Staging Malignant neoplasm of upper-inner quadrant of left breast in female, estrogen receptor positive (CMS/HCC) Staging form: Breast, AJCC 8th Edition - Pathologic stage from 12/17/2018: Stage IA (pT1b, pN1mi(sn), cM0, G2, ER: Positive, ME: Positive, HER2: Negative) - Signed by Neil Ag MD PhD on 12/17/2018 Encounter Diagnosis Name Primary? Malignant neoplasm of upper-inner quadrant of left breast in female, estrogen receptor positive(CMS/HCC) Yes TREATMENT: Radiation Treatments Active Plans LT BRST:1 Most recent treatment: Dose planned: 266 cGy (fraction 16 on 01/29/2019) Total: Dose planned: 4,256 cGy Elapsed Course Treatment Days: 21 Reference Points LT BRST Most recent treatment: Dose given: 266 cGy (on 01/29/2019) Total: Dose given: 4,256 cGy Elapsed Course Treatment Days: 21 SUBJECTIVE: Continues to tolerate therapy well. Denies any pain (0/10). Denies any skin changes. EXAM: BP 157/74 Pulse 95 Temp 36.6 ??C (97.9 ??F) Resp 18 Wt 84.8 kg (187 lb) BMI 29.73 kg/m?? Pain Score and Location 01/29/19 1051 PainSc: 0-No pain NAD. Mild to moderate breast edema. Minimal erythema and hyperpigmentation. No desquamation. Radiation Dermatitis: 1 - Faint erythema or dry desquamation Fatigue: 0 - None Dysphagia: 0 - None ASSESSMENT Experiencing anticipated side effects and Treatment completed PLANS Return for follow-up in 6 months RAD ONC PAIN PLAN: The patient is not currently having any pain that requires changes in pain management. ZENSHIP INSTRUCTOR documented in this encounter Nursing Notes * Molly Gupta RN - 01/29/2019 10:39 AM CST . ZENSHIP INSTRUCTOR documented in this encounter Plan of Treatment Not on file documented as of this encounter Visit Diagnoses Diagnosis Malignant neoplasm of upper-inner quadrant of left breast in female, estrogen receptor positive (HCC)- Primary documented in this encounter Care Teams Drum Worker Relationship Specialty Start Date End Date Francisco Long MD PCP - General 02/23/17 05/15/22 Neil Ag MD PhD [address] [place] [id number] Radiation Oncologist Radiation Oncology 12/17/18 [place] [address] [address] [place], [place] [phone] Referring Physician General Surgery 12/17/18 [place] [address] [address] [place] [id number] Medical Oncologist/Breast Worker Medical Oncology 12/17/18 documented as of this encounter
--- OUTSIDE RECORDS SUMMARY | 2024-11-16 13:10 | XMS_ITS | Encounter Summary ---
Author Organization [facility] Healthcare Address [address] [place] [address] Care Team Providers Care Mason Tender Restoration Labor Name Role Phone Francisco Long MD Primary Care Provider [phone] Neil Ag MD PhD Unavailable [phone] Ita Vazquez MD Unavailable Caron Mohan MD Unavailable Encounter Details Date Type Department Care Team (Late st Contact Info) Description 01/15/2019 OTV [facility] Radiation Oncology [address] [place] [id number] Caesar Thao MD [address] [facility] [address] [place] [address] Social History Tobacco Use Types Packs/Day Years Used Date Smoking Tobacco: Never Smokeless Tobacco: Never Alcohol Use Standard Drinks/Week Comments No 0 (1 standard drink = 0.6 oz pur e alcohol) Comments Unknown Sex and Gender Information Value Date Recorded Sex Assigned at Not on file Legal Sex Female 12:21 PM ASSOCIATE BUSINESS ANALYST Gender Identity Not on file Sexual Orientation Not on file documented as of this encounter Last Filed Vital Signs Vital Sign Reading Time Taken Comments Blood Pressure 169/60 01/15/2019 9:58 AM ASSOCIATE BUSINESS ANALYST Pulse 90 01/15/2019 9:58 AM ASSOCIATE BUSINESS ANALYST Temperature 36.6 ??C (97.9 ??F) 01/15/2019 9:58 AM CS T Respiratory Rate 18 01/15/2019 9:58 AM ASSOCIATE BUSINESS ANALYST Oxygen Saturation - - Inhaled Oxygen Concentration - - Weight 84.8 kg (187 lb) 01/15/2019 9:58 AM ASSOCIATE BUSINESS ANALYST Height - - Body Mass Index 29.73 12/17/2018 2:50 PM ASSOCIATE BUSINESS ANALYST documented in this encounter Progress Notes * Caesar Thao MD - 01/15/2019 9:58 AM CST Staff Physician: Neil Ag MD PhD Referring Physician: Patient Care Team: Ita Vazquez MD as Referring Physician (General Surgery) Date of Service: 01/15/2019 RADIATION ONCOLOGY ON TREATMENT VISIT (OTV) NOTE Diagnosis: Cancer Staging Malignant neoplasm of upper-inner quadrant of left breast in female, estrogen receptor positive (CMS/HCC) Staging form: Breast, AJCC 8th Edition - Pathologic stage from 12/17/2018: Stage IA (pT1b, pN1mi(sn), cM0, G2, ER: Positive, DE: Positive, HER2: Negative) - Signed by Neil Ag MD PhD on 12/17/2018 TREATMENT: Radiation Treatments Active Plans LT BRST:1 Most recent treatment: Dose planned: 266 cGy (fraction 6 on 01/15/2019) Total: Dose planned: 4,256 cGy Elapsed Course Treatment Days: 7 Reference Points LT BRST Most recent treatment: Dose given: 266 cGy (on 01/15/2019) Total: Dose given: 1,596 cGy Elapsed Course Treatment Days: 7 Radiation Treatments Patient's record has no historical radiation treatments documented. SUBJECTIVE: Pt reports mild fatigue which is not new or worse. She denies other issues. Not applying topical skin ointments. EXAM: BP 169/60 Pulse 90 Temp 36.6 ??C (97.9 ??F) Resp 18 Wt 84.8 kg (187 lb) BMI 29.73 kg/m?? Pain Score and Location 01/15/19 0958 PainSc: 0-No pain Sitting in NAD. No skin changes. Radiation Dermatitis: 0 - None Fatigue: 1 - Fatigue relieved by rest Dysphagia: 0 - None ASSESSMENT No side effects PLANS Continue with treatment RAD ONC PAIN PLAN: The patient is not currently having any pain that requires changes in pain management. CIATE BUSINESS ANALYST documented in this encounter Plan of Treatment Not on file documented as of this encounter Visit Diagnoses Not on filedocumented in this encounter Care Teams Mason Tender Restoration Labor Relationship Specialty Start Date End Date Francisco Long MD PCP - General 02/23/17 05/15/22 Neil Ag MD PhD [address] [place] [address] Radiation Oncologist Radiation Oncology 12/17/18 [place] [address] [facility] [address] [place], [place] [phone] Referring Physician General Surgery 12/17/18 [place] [address] [facility] [address] [place], [place] [phone] Medical Oncologist/Mine Equipment Design Engineer Medical Oncology 12/17/18 documented as of this encounter
--- OUTSIDE RECORDS SUMMARY | 2024-11-16 13:11 | XMS_ITS | Encounter Summary ---
Author Organization [facility] Healthcare Address [address] [place] [address] Care Team Providers Care Tax Accounting Manager Name Role Phone Francisco Long MD Primary Care Provider [phone] Neil Ag MD PhD Unavailable [phone] Ita Vazquez MD Unavailable Caron Mohan MD Unavailable Encounter Details Date Type Department Care Team (Late st Contact Info) Description 01/08/2019 10:30 AM DIESEL MACHINIST Treatment [facility] Radiation Oncology [address] [place] [address] Social History Tobacco Use Types Packs/Day Years Used Date Smoking Tobacco: Never Smokeless Tobacco: Never Alcohol Use Standard Drinks/Week Comments No 0 (1 standard drink = 0.6 oz pur e alcohol) Comments Unknown Sex and Gender Information Value Date Recorded Sex Assigned at Not on file Legal Sex Female 12:21 PM DIESEL MACHINIST Gender Identity Not on file Sexual Orientation Not on file documented as of this encounter Plan of Treatment Not on file documented as of this encounter Visit Diagnoses Not on filedocumented in this encounter Care Teams Tax Accounting Manager Relationship Specialty Start Date End Date Francisco Long MD PCP - General 02/23/17 05/15/22 Neil Ag MD PhD [address] [place] [address] Radiation Oncologist Radiation Oncology 12/17/18 [place] [address] [phone] Referring Physician General Surgery 12/17/18 [place] [address] [address] [address] Medical Oncologist/Cable Engineer Outside Plant Medical Oncology 12/17/18 documented as of this encounter
--- OUTSIDE RECORDS SUMMARY | 2024-11-16 13:11 | XMS_ITS | Encounter Summary ---
Author Organization [facility] Healthcare Address [address] [place] [address] Care Team Providers Care Electronic Security Technician Name Role Phone Francisco Long MD Primary Care Provider [phone] Neil Ag MD PhD Unavailable [phone] Ita Vazquez MD Unavailable Caron Mohan MD Unavailable Encounter Details Date Type Department Care Team (Late st Contact Info) Description 12/30/2018 11:00 AM DISTRICT SALES COORDINATOR Treatment [facility] Radiation Oncology [address] [place] [address] Neil Ag MD PhD [address] [place] [address] Social History Tobacco Use Types Packs/Day Years Used Date Smoking Tobacco: Never Smokeless Tobacco: Never Alcohol Use Standard Drinks/Week Comments No 0 (1 standard drink = 0.6 oz pur e alcohol) Comments Unknown Sex and Gender Information Value Date Recorded Sex Assigned at Not on file Legal Sex Female 12:21 PM DISTRICT SALES COORDINATOR Gender Identity Not on file Sexual Orientation Not on file documented as of this encounter Plan of Treatment Not on file documented as of this encounter Visit Diagnoses Not on filedocumented in this encounter Care Teams Electronic Security Technician Relationship Specialty Start Date End Date Francisco Long MD PCP - General 02/23/17 05/15/22 Neil Ag MD PhD [address] [place] [address] Radiation Oncologist Radiation Oncology 12/17/18 [place] [address] [facility] [address] [place] [address] Referring Physician General Surgery 12/17/18 [place] [address] [facility] [address] [place] [address] Medical Oncologist/Ice Hockey Coach Medical Oncology 12/17/18 documented as of this encounter
--- OUTSIDE RECORDS SUMMARY | 2024-11-16 13:11 | XMS_ITS | Encounter Summary ---
Author Organization [facility] Address [address] [facility] [address] [place] [address] Care Team Providers Care Taxi Cab Driver Name Role Phone Francisco Long MD Primary Care Provider Encounter Details Date Type Department Care Team (Late st Contact Info) Description 10/31/2018 Telephone [facility] [address] [facility] [address] [place] [address] Thao Munroe, MOLECULAR SPECTROSCOPIST [address] [facility] [facility] [place] [facility] [address] [place], [place] [id number] Social History Tobacco Use Types Packs/Day Years Used Date Smoking Tobacco: Never Smokeless Tobacco: Never Alcohol Use Standard Drinks/Week Comments No 0 (1 standard drink = 0.6 oz pur e alcohol) Comments Unknown Sex and Gender Information Value Date Recorded Sex Assigned at Not on file Legal Sex Female 12:21 PM HORSE BUYER Gender Identity Not on file Sexual Orientation Not on file documented as of this encounter Ordered Prescriptions Prescription Sig Dispense Quantity Refills Last Filled Start Date End Date benzonatate (TESSALON) 200 mg capsule Take 1 capsule (200 mg total) by mouth 3 (three) times a day as needed for cough. 42 capsule 10/31/2018 9 documented in this encounter Miscellaneous Notes * Telephone Encounter - Herbert Galan MA - 10/31/2018 10:40 AM CST Pt aware E BUYER * Telephone Encounter - Thao Munroe NP - 10/31/2018 10:22 AM HORSE BUYER I sent her over tessalon perles to take as needed for cough, and I would advise her these may make her tired dut to the lidocaine in them. Also, I told her to expect symptoms to worsen 1-2 days afteronset, so her worsening cough today is not abnormal for a virus. Recommenced use of a humidifier/vaporizor at night as well. Please advise her to let us know if symptoms are worsening after the next 2 days to consider antibiotics at that time. Thank you E BUYER * Telephone Encounter - Anita White MA - 10/31/2018 10:19 AM CST [facility]KB E BUYER * Telephone Encounter - Kaylynn Prieto - 10/31/2018 10:16 AM HORSE BUYER Pt was seen yesterday and given a nasal spray, pt was told to call back if she gets worse, pt coughed all day yesterday and all night, requesting a cough medication or abx, please advise Nov 12/11/18 E BUYER documented in this encounter Plan of Treatment Not on file documented as of this encounter Visit Diagnoses Not on filedocumented in this encounter Care Teams Taxi Cab Driver Relationship Specialty Start Date End Date Francisco Long MD PCP - General 02/23/17 05/15/22 documented as of this encounter
--- OUTSIDE RECORDS SUMMARY | 2024-11-16 13:11 | XMS_ITS | Encounter Summary ---
Author Organization [facility] Medical Group Address [address] [place] [address] Care Team Providers Care Kettle Worker Name Role Phone Francisco Long MD Primary Care Provider [phone] Reason for Visit * Reason Comments Anemia Encounter Details Date Type Department Care Team (Late st Contact Info) Description 11/16/2018 9:00 AM NAPHTHALENE OPERATOR HELPER Office Visit [facility] [address] [facility] [address] [place] [address] Francisco Long MD [address] [place] [address] [address] [place] [address] Iron deficiency anemia, unspecified iron deficiency anemia type (Primary Dx) Social History Tobacco Use Types Packs/Day Years Used Date Smoking Tobacco: Never Smokeless Tobacco: Never Alcohol Use Standard Drinks/Week Comments No 0 (1 standard drink = 0.6 oz pur e alcohol) Comments Unknown Sex and Gender Information Value Date Recorded Sex Assigned at Not on file Legal Sex Female 12:21 PM NAPHTHALENE OPERATOR HELPER Gender Identity Not on file Sexual Orientation Not on file documented as of this encounter Last Filed Vital Signs Vital Sign Reading Time Taken Comments Blood Pressure 142/84 11/16/2018 8:49 AM NAPHTHALENE OPERATOR HELPER Pulse 78 11/16/2018 8:49 AM NAPHTHALENE OPERATOR HELPER Temperature - - Respiratory Rate 18 11/16/2018 8:49 AM NAPHTHALENE OPERATOR HELPER Oxygen Saturation - - Inhaled Oxygen Concentration - - Weight 84.9 kg (187 lb 3.2 oz) 11/16/2018 8:49 A M NAPHTHALENE OPERATOR HELPER Height 170.2 cm (5' 7 ) 11/16/2018 8:49 AM NAPHTHALENE OPERATOR HELPER Body Mass Index 29.32 11/16/2018 8:49 AM NAPHTHALENE OPERATOR HELPER documented in this encounter Ordered Prescriptions Prescription Sig Dispense Quantity Refills Last Filled Start Date End Date azithromycin (ZITHROMAX) 250 mg tablet Take 2 tabs (500 mg) by mouth today, than 1 tab (250 mg) daily for 4 days. 6 tablet 11/16/2018 11/21/2018 documented in this encounter Progress Notes * Francisco Long MD - 11/16/2018 9:00 AM CST Subjective/Objective Patient ID: Jolene Cedillo is a 72 y.o. female. Chief Complaint Anemia HPI 72-year-old seen today with her Douglas she has got a little bit of a cough wants to take a little bit a Z-Otilio she has iron deficiency anemia she has had in the past been taking iron pills for several years last time we did check the H&H on her was year ago October 2000 18 and hemoglobinwas 12.5 she states she had uterine surgery hysterectomy laparoscopically habit at [facility] in June for uterine cancer she states she does recall any blood transfusions or any problems with being anemic she states she feels little short-winded at time in maybe a little fatigued but nothing severe she had routine lab work done earlier this week for her physical next month we discover that the patient's iron levels have dropped in the patient's hemoglobin has dropped as well she has no melena no hematochezia does not take any aspirin or NSAIDs does take methotrexate for her rheumatoid arthritis Review of Systems patient did not require any blood transfusion after her gynecological surgery in June Vitals: 11/16/18 0849 BP: 142/84 BP Location: Right arm Patient Position: Sitting Pulse: 78 Resp: 18 Weight: 84.9 kg (187 lb 3.2 oz) Height: 170.2 cm (5' 7 ) Physical Exam She is pleasant no distress neck is supple lungs clear cardiovascular regular abdomen soft nontender extremities no edema Assessment/Plan Diagnoses and all orders for this visit: Iron deficiency anemia, unspecified iron deficiency anemia type (Primary) Other orders - azithromycin (ZITHROMAX) 250 mg tablet; Take 2 tabs (500 mg) by mouth today, than 1 tab (250 mg) daily for 4 days. She has iron deficiency anemia low bit of a bronchitis will put on a Z-Otilio she will check with her doctors at [facility] regarding her upcoming breast lumpectomy schedule for Sunday for her breast cancer I cannot find the results of her lab work from June her any other testing she had done at [facility] since the [facility] information is blocked on the computer system she states she will get a call Sunday let him know the results of her blood test and will have him on block the computer system so we can review her care on Care everywhere in the [employer] system she will follow up with me next month for fernando mination her physical examination as directed she will increase her iron supplementation to 3 dailyif tolerated Side effects, risks, interactions reviewed with patient. Indications for testing discussed. Any further problems to contact us. She was told what to look out for and verbalized understanding. The patient was given the opportunity to have all questions answered today and was in agreement with the plan of care. THALENE OPERATOR HELPER documented in this encounter Plan of Treatment Not on file documented as of this encounter Visit Diagnoses Diagnosis Iron deficiency anemia, unspecified iron deficiency anemia type- Primary documented in this encounter Historical Medications * This list may reflect changes made after this encounter. methotrexate 2.5 mg tablet Take 12.5 mg by mouth every 7 days sunday 3 10/30/2018 0 added in this encounter Care Teams Kettle Worker Relationship Specialty Start Date End Date Francisco Long MD PCP - General 02/23/17 05/15/22 documented as of this encounter
--- OUTSIDE RECORDS SUMMARY | 2024-11-16 13:11 | XMS_ITS | Encounter Summary ---
Author Organization [facility] Medical Group Address [address] [place] [address] Care Team Providers Care Can Crimper Name Role Phone Francisco Long MD Primary Care Provider [phone] Reason for Visit * Reason Comments Cough Encounter Details Date Type Department Care Team (Late st Contact Info) Description 10/30/2018 11:00 AM FLEXIBLE SHAFT WINDER Office Visit [facility] [address] [facility] [address] [facility] [address] [place] [id number] Thao Munroe, PARALEGAL SECRETARY [address] [place] [address] [id number] Viral URI with cough (Primary Dx); BMI 30.0-30.9,adult Social History Tobacco Use Types Packs/Day Years Used Date Smoking Tobacco: Never Smokeless Tobacco: Never Alcohol Use Standard Drinks/Week Comments No 0 (1 standard drink = 0.6 oz pur e alcohol) Comments Unknown Sex and Gender Information Value Date Recorded Sex Assigned at Not on file Legal Sex Female 12:21 PM FLEXIBLE SHAFT WINDER Gender Identity Not on file Sexual Orientation Not on file documented as of this encounter Last Filed Vital Signs Vital Sign Reading Time Taken Comments Blood Pressure 138/74 10/30/2018 11:08 AM FLEXIBLE SHAFT WINDER Pulse 96 10/30/2018 11:08 AM FLEXIBLE SHAFT WINDER Temperature 36.7 ??C (98.1 ??F) 10/30/2018 11:[address] Respiratory Rate 18 10/30/2018 11:08 AM FLEXIBLE SHAFT WINDER Oxygen Saturation - - Inhaled Oxygen Concentration - - Weight 87.1 kg (192 lb) 10/30/2018 11:08 AM FLEXIBLE SHAFT WINDER Height 170.2 cm (5' 7 ) 10/30/2018 11:08 AM FLEXIBLE SHAFT WINDER Body Mass Index 30.07 10/30/2018 11:08 AM FLEXIBLE SHAFT WINDER documented in this encounter Ordered Prescriptions Prescription Sig Dispense Quantity Refills Last Filled Start Date End Date fluticasone (FLONASE) 50 mcg/actuation nasal spray Administer 2 sprays into each nostril daily. 16 g 10/30/2018 9 documented in this encounter Miscellaneous Notes * Assessment & Plan Note - Thao Munroe PARALEGAL SECRETARY - 10/30/2018 11:26 AM FLEXIBLE SHAFT WINDER Associated Problem(s): Viral URI with cough (Resolved 12/17/2018) Likely viral based on symptoms. Flonase prescribed, conservative management advised including use of a nasal rinses, humidifier or paper eyes are along with indication to f/u in office with any worsening symptoms or persistent symptoms. IBLE SHAFT WINDER IBLE SHAFT WINDER documented in this encounter Plan of Treatment Not on file documented as of this encounter Visit Diagnoses Diagnosis Viral URI with cough- Primary BMI 30.0-30.9,adult documented in this encounter Care Teams Can Crimper Relationship Specialty Start Date End Date Francisco Long MD PCP - General 02/23/17 05/15/22 documented as of this encounter
--- OUTSIDE RECORDS SUMMARY | 2024-11-16 13:11 | XMS_ITS | Encounter Summary ---
Author Organization [facility] Medical Group Address [address] [place] [address] Care Team Providers Care Optical Sales Associate Name Role Phone Francisco Long MD Primary Care Provider [phone] Encounter Details Date Type Department Care Team (Late st Contact Info) Description 11/14/2018 Telephone [facility] [address] [facility] [address] [place] [address] Francisco Long MD [address] [facility] [address] [place] [address] Social History Tobacco Use Types Packs/Day Years Used Date Smoking Tobacco: Never Smokeless Tobacco: Never Alcohol Use Standard Drinks/Week Comments No 0 (1 standard drink = 0.6 oz pur e alcohol) Comments Unknown Sex and Gender Information Value Date Recorded Sex Assigned at Not on file Legal Sex Female 12:21 PM OILSEED MEAT PRESSER Gender Identity Not on file Sexual Orientation Not on file documented as of this encounter Miscellaneous Notes * Telephone Encounter - Anita White MA - 11/14/2018 11:39 AM CST Didi aware EED MEAT PRESSER * Telephone Encounter - Francisco Long MD - 11/14/2018 11:15 AM CST Anemia iron deficiency EED MEAT PRESSER * Telephone Encounter - Chyna Choe - 11/14/2018 8:45 AM CST Need a diagnosis for iron, ferritin. Pt is at [facility]. [phone] EED MEAT PRESSER documented in this encounter Plan of Treatment Not on file documented as of this encounter Visit Diagnoses Not on filedocumented in this encounter Care Teams Optical Sales Associate Relationship Specialty Start Date End Date Francisco Long MD PCP - General 02/23/17 05/15/22 documented as of this encounter
--- OUTSIDE RECORDS SUMMARY | 2024-11-16 13:11 | XMS_ITS | Encounter Summary ---
Author Organization [facility] Healthcare Address [address] [place] [address] Care Team Providers Care Inspector Packager Name Role Phone Francisco Long MD Primary Care Provider [phone] Neil Ag MD PhD Unavailable [phone] Ita Vazquez MD Unavailable Caron Mohan MD Unavailable Encounter Details Date Type Department Care Team (Late st Contact Info) Description 01/09/2019 10:30 AM FIBER WORKER Treatment [facility] Radiation Oncology [address] [place] [id number] Social History Tobacco Use Types Packs/Day Years Used Date Smoking Tobacco: Never Smokeless Tobacco: Never Alcohol Use Standard Drinks/Week Comments No 0 (1 standard drink = 0.6 oz pur e alcohol) Comments Unknown Sex and Gender Information Value Date Recorded Sex Assigned at Not on file Legal Sex Female 12:21 PM FIBER WORKER Gender Identity Not on file Sexual Orientation Not on file documented as of this encounter Plan of Treatment Not on file documented as of this encounter Visit Diagnoses Not on filedocumented in this encounter Care Teams Inspector Packager Relationship Specialty Start Date End Date Francisco Long MD PCP - General 02/23/17 05/15/22 Neil Ag MD PhD [address] [place] [address] Radiation Oncologist Radiation Oncology 12/17/18 [place] [id number] [id number] Referring Physician General Surgery 12/17/18 [place] [id number] [address] [address] Medical Oncologist/Business Analyst Project Manager Medical Oncology 12/17/18 documented as of this encounter
--- OUTSIDE RECORDS SUMMARY | 2024-11-16 13:11 | XMS_ITS | Encounter Summary ---
Author Organization [facility] Medical Group Address [address] [place] [address] Care Team Providers Care Bookkeeper Assistant Name Role Phone Francisco Long MD Primary Care Provider [phone] Encounter Details Date Type Department Care Team (Late st Contact Info) Description 11/14/2018 Orders Only [facility] 2 [facility] [address] [place] [address] Francisco Long MD 2 [facility] [address] [place] [address] Social History Tobacco Use Types Packs/Day Years Used Date Smoking Tobacco: Never Smokeless Tobacco: Never Alcohol Use Standard Drinks/Week Comments No 0 (1 standard drink = 0.6 oz pur e alcohol) Comments Unknown Sex and Gender Information Value Date Recorded Sex Assigned at Not on file Legal Sex Female 12:21 PM INDUSTRIAL PSYCHOLOGY PROFESSOR Gender Identity Not on file Sexual Orientation Not on file documented as of this encounter Progress Notes * Francisco Long MD - 11/14/2018 11:59 PM CST Patient is anemic low on iron have her see me tomorrow morning 9:00 a.m. If possible STRIAL PSYCHOLOGY PROFESSOR documented in this encounter Plan of Treatment Not on file documented as of this encounter Procedures Procedure Name Priority Date/Time Associated Diagnosis Comments CHOL/HDLC RATIO Routine 11/14/2018 8:37 AM INDUSTRIAL PSYCHOLOGY PROFESSOR LDL-CHOLESTEROL Routine 11/14/2018 8:37 AM INDUSTRIAL PSYCHOLOGY PROFESSOR NON HDL CHOLESTEROL Routine 11/14/2018 8 :37 AM INDUSTRIAL PSYCHOLOGY PROFESSOR REFLEXIVE URINE CULTURE Routine 11/14/2018 8:37 AM INDUSTRIAL PSYCHOLOGY PROFESSOR URINALYSIS AND REFLEX TO MICROSCOPIC AND CULTURE Routine 11/14/2018 8:37 AM INDUSTRIAL PSYCHOLOGY PROFESSOR CBC WITH AUTO DIFFERENTIAL Routine 11/14/2018 8:37 AM INDUSTRIAL PSYCHOLOGY PROFESSOR URINE CULTURE Routine 11/14/2018 8:37 AM INDUSTRIAL PSYCHOLOGY PROFESSOR TRIGLYCERIDES Routine 11/14/2018 8:37 AM INDUSTRIAL PSYCHOLOGY PROFESSOR CHOLESTEROL, HDL Routine 11/14/2018 8:37 AM INDUSTRIAL PSYCHOLOGY PROFESSOR IRON Routine 11/14/2018 8:37 AM INDUSTRIAL PSYCHOLOGY PROFESSOR FERRITIN Routine 11/14/2018 8:37 AM INDUSTRIAL PSYCHOLOGY PROFESSOR CHOLESTEROL, TOTAL Routine 11/14/2018 8: 37 AM INDUSTRIAL PSYCHOLOGY PROFESSOR COMPREHENSIVE METABOLIC PANEL Routine 11/14/2018 8:37 AM INDUSTRIAL PSYCHOLOGY PROFESSOR documented in this encounter Results * Urine culture (11/14/2018 8:37 AM INDUSTRIAL PSYCHOLOGY PROFESSOR) Urine culture [facility] [place] Comment: ??CULTURE, URINE, ROUTINE ?MICRO NUMBER: ?[id number] ??TEST STATUS: ? FINAL ??SPECIMEN SOURCE: ?? URINE ??SPECIMEN QUALITY: ??ADEQUATE ??RESULT: ?Multiple organisms present, each less than 10,000 ? CFU/mL. These organisms, commonly found on ? external and internal genitalia, are considered ? to be colonizers. No further testing performed. 11/14/2018 8:37 AM INDUSTRIAL PSYCHOLOGY PROFESSOR 11/14/2018 8:49 AM INDUSTRIAL PSYCHOLOGY PROFESSOR Narrative [facility] - 11/16/2018 6:50 AM INDUSTRIAL PSYCHOLOGY PROFESSOR FASTING:YES FASTING: YES Resulting Agency Comment Performing Organization Information: ?Site ID: [place] ?Name: Jesika Jackson-Andry ?Address: [facility] [place] [address] ?Director: Alex Garcia D.O., MPH Francisco Long MD LAB MICROBIOLOGY - GENERAL ORD ERABLES Final Result Performing Organization Address [facility] de Phone Number [facility] [place] * REFLEXIVE URINE CULTURE (11/14/2018 8:37 AM INDUSTRIAL PSYCHOLOGY PROFESSOR) Urine culture CULTURE INDICATED - RESULTS TO FOLLOW [facility] [place] 11/14/2018 8:37 AM INDUSTRIAL PSYCHOLOGY PROFESSOR 11/14/2018 8:49 AM INDUSTRIAL PSYCHOLOGY PROFESSOR Narrative [facility] - 11/16/2018 6:50 AM INDUSTRIAL PSYCHOLOGY PROFESSOR FASTING:YES FASTING: YES Resulting Agency Comment Performing Organization Information: ?Site ID: [place] ?Name: Jesika Jackson-Andry ?Address: [facility] [place] [id number] ?Director: Alex Garcia D.O., MPH Francisco Long MD LAB MICROBIOLOGY - GENERAL ORD ERABLES Final Result Performing Organization Address [facility] de Phone Number [facility] [place] * (ABNORMAL) Urinalysis reflex to microscopic and culture (11/14/2018 8:37 AM INDUSTRIAL PSYCHOLOGY PROFESSOR) Color, ur YELLOW YELLOW [facility] [place] Appearance, ur CLEAR CLEAR [facility] [place] Specific gravity 1.022 1.001 - 1.035 [facility] [place] pH, ur 6.0 5.0 - 8.0 [facility] [place] Glucose, ur NEGATIVE NEGATIVE [facility] [place] Bilirubin, ur NEGATIVE NEGATIVE [facility] [place] Ketones, ur NEGATIVE NEGATIVE [facility] [place] Blood, ur NEGATIVE NEGATIVE [facility] [place] Protein, ur, quant NEGATIVE NEGATIVE [facility] [place] Nitrites, ur NEGATIVE NEGATIVE [facility] [place] Leukocyte esterase, ur NEGATIVE NEGATIVE [facility] [place] WBC, ur 6-10(A) < OR = 5 /HPF [facility] [place] RBC, ur NONE SEEN < OR = 2 /HPF [facility] [place] Epithelial cells, squamous, ur 0-5 < OR = 5 /HPF [facility] [place] Bacteria, ur, quant NONE SEEN NONE SEEN /HPF [facility] [place] Hyaline cast NONE SEEN NONE SEEN /LPF [facility] [place] 11/14/2018 8:37 AM INDUSTRIAL PSYCHOLOGY PROFESSOR 11/14/2018 8:49 AM INDUSTRIAL PSYCHOLOGY PROFESSOR Narrative [facility] - 11/16/2018 6:50 AM INDUSTRIAL PSYCHOLOGY PROFESSOR FASTING:YES FASTING: YES Resulting Agency Comment Performing Organization Information: ?Site ID: [place] ?Name: [email or web address] ?Address: [address] [place], [place] [address] [place] [address] ?Director: Alex Garcia D.O. MPH us Francisco Long MD LAB MICROBIOLOGY - GENERAL ORD ERABLES Final Result Performing Organization Address [facility] de Phone Number [facility] [place] * (ABNORMAL) Ferritin (11/14/2018 8:37 AM INDUSTRIAL PSYCHOLOGY PROFESSOR) Ferritin 5(L) 20 - 288 ng/mL [facility] [place] 11/14/2018 8:37 AM INDUSTRIAL PSYCHOLOGY PROFESSOR 11/14/2018 8:49 AM INDUSTRIAL PSYCHOLOGY PROFESSOR Narrative [facility] - 11/16/2018 6:50 AM INDUSTRIAL PSYCHOLOGY PROFESSOR FASTING:YES FASTING: YES Resulting Agency Comment Performing Organization Information: ?Site ID: [place] ?Name: [employer] ?Address: [facility] [place] [address] ?Director: Alex Garcia D.O. MPH us Francisco Long MD LAB BLOOD ORDERABLES Final Res ult [facility] [place] * (ABNORMAL) CBC with auto differential (11/14/2018 8:37 AM INDUSTRIAL PSYCHOLOGY PROFESSOR) WBC 5.7 3.8 - 10.8 Thousand/u L [facility] [place] RBC, POC 3.82 3.80 - 5.10 Million/uL [facility] [place] Hgb 8.5(L) 11.7 - 15.5 g/dL [facility] [place] Hct 29.0(L) 35.0 - 45.0 % [facility] [place] MCV 75.9(L) 80.0 - 100.0 fL [facility] [place] MCH 22.3(L) 27.0 - 33.0 pg [facility] [place] MCHC 29.3(L) 32.0 - 36.0 g/dL [facility] [place] Rdw 18.3(H) 11.0 - 15.0 % [facility] [place] Platelets 267 140 - 400 Thousand/u L [facility] [place] MPV 9.4 7.5 - 12.5 fL [facility] [place] Neutrophils, abs 4,509 1,500 - 7,800 cells/uL [facility] [place] Lymphocytes, abs 581(L) 850 - 3,900 cells/uL [facility] [place] Monocyte abs 410 200 - 950 cells/uL [facility] [place] Eosinophils, abs 160 15 - 500 cells/uL [facility] [place] Basophils, abs 40 0 - 200 cells/uL [facility] [place] Neutrophils 79.1 % [facility] [place] Lymphocyte pct 10.2 % [facility] [place] Monocytes 7.2 % [facility] [place] Eosinophils 2.8 % [facility] [place] Basophils 0.7 % [facility] [place] 11/14/2018 8:37 AM INDUSTRIAL PSYCHOLOGY PROFESSOR 11/14/2018 8:49 AM INDUSTRIAL PSYCHOLOGY PROFESSOR Narrative [facility] - 11/16/2018 6:50 AM INDUSTRIAL PSYCHOLOGY PROFESSOR FASTING:YES FASTING: YES Resulting Agency Comment Performing Organization Information: ?Site ID: [place] ?Name: [facility] ?Address: [facility] [place] [id number] ?Director: Alex Garcia D.O., MPH us Francisco Long MD LAB BLOOD ORDERABLES Final Res ult [facility] [place] * (ABNORMAL) Comprehensive metabolic panel (11/14/2018 8:37 AM INDUSTRIAL PSYCHOLOGY PROFESSOR) Glucose 127(H) 65 - 99 mg/dL [facility] [place] Comment: ? Fasting reference interval For someone without known diabetes, a glucose value >125 mg/dL indicates that they may have diabetes and this should be confirmed with a follow-up test. BUN 13 7 - 25 mg/dL [facility] [place] Creatinine 0.78 0.60 - 0.93 mg/dL [facility] [place] Comment: For patients >49 years of age, the reference limit for Creatinine is approximately 13% higher for people identified as -Marshallese. eGFR NON-AFR. [facility] 76 > OR = 60 mL/min/1 .73m2 [facility] [place] EGFR 89 > OR = 60 mL/min/1 .73m2 [facility] [place] BUN/creat ratio NOT APPLICABLE 6 - 22 (calc) [facility] [place] Sodium 140 135 - 146 mmol/L [facility] [place] Potassium, pl 4.4 3.5 - 5.3 mmol/L [facility] [place] Chloride 103 98 - 110 mmol/L [facility] [place] CO2 28 20 - 32 mmol/L [facility] [place] Calcium 8.8 8.6 - 10.4 mg/dL [facility] [place] Protein, sr 6.1 6.1 - 8.1 g/dL [facility] [place] Albumin 4.1 3.6 - 5.1 g/dL [facility] [place] GLOBULIN 2.0 1.9 - 3.7 g/dL (calc) [facility] [place] Alb/glob ratio 2.1 1.0 - 2.5 (calc) [facility] [place] Bilirubin, total 0.4 0.2 - 1.2 mg/dL [facility] [place] Alk phos 64 33 - 130 U/L [facility] [place] AST 15 10 - 35 U/L [facility] [place] ALT (SGPT) 13 6 - 29 U/L [facility] [place] 11/14/2018 8:37 AM INDUSTRIAL PSYCHOLOGY PROFESSOR 11/14/2018 8:49 AM INDUSTRIAL PSYCHOLOGY PROFESSOR Narrative [facility] - 11/16/2018 6:50 AM INDUSTRIAL PSYCHOLOGY PROFESSOR FASTING:YES FASTING: YES Resulting Agency Comment Performing Organization Information: ?Site ID: [place] ?Name: Jesika Matthew ?Address: [facility] [place] [id number] ?Director: Alex Garcia D.O., MPH Francisco Long MD LAB BLOOD ORDERABLES Final Res ult Performing Organization Address [facility] de Phone Number [place] Carrillo * (ABNORMAL) Iron level (11/14/2018 8:37 AM INDUSTRIAL PSYCHOLOGY PROFESSOR) Iron 11(L) 45 - 160 mcg/dL [facility] 11/14/2018 8:37 AM INDUSTRIAL PSYCHOLOGY PROFESSOR 11/14/2018 8:49 AM INDUSTRIAL PSYCHOLOGY PROFESSOR Narrative [facility] - 11/16/2018 6:50 AM INDUSTRIAL PSYCHOLOGY PROFESSOR FASTING:YES FASTING: YES Resulting Agency Comment Performing Organization Information: ?Site ID: [place] ?Name: Jesika Matthew ?Address: [facility] [place] [id number] ?Director: Alex Garcia D.O. MPH Francisco Long MD LAB BLOOD ORDERABLES Final Res ult Performing Organization Address [facility] de Phone Number [place] Carrillo * (ABNORMAL) NON HDL CHOLESTEROL (11/14/2018 8:37 AM INDUSTRIAL PSYCHOLOGY PROFESSOR) Non-HDL, (LDL+VLDL) 138(H) <130 mg/dL (calc) [facility] [place] Comment: For patients with diabetes plus 1 major ASCVD risk factor, treating to a non-HDL-C goal of <100 mg/dL (LDL-C of <70 mg/dL) is considered a therapeutic option. 11/14/2018 8:37 AM INDUSTRIAL PSYCHOLOGY PROFESSOR 11/14/2018 8:49 AM INDUSTRIAL PSYCHOLOGY PROFESSOR Narrative [facility] - 11/16/2018 6:50 AM INDUSTRIAL PSYCHOLOGY PROFESSOR FASTING:YES FASTING: YES Resulting Agency Comment Performing Organization Information: ?Site ID: [place] ?Name: Jesika Matthew ?Address: [address] [place] [id number] ?Director: Alex Garcia D.O. MPH Francisco Long MD LAB BLOOD ORDERABLES Final Res ult Performing Organization Address [facility] de Phone Number [place] Carrillo * CHOL/HDLC RATIO (11/14/2018 8:37 AM INDUSTRIAL PSYCHOLOGY PROFESSOR) Chol/HDL ratio 3.4 <5.0 (calc) [facility]ON 11/14/2018 8:37 AM INDUSTRIAL PSYCHOLOGY PROFESSOR 11/14/2018 8:49 AM INDUSTRIAL PSYCHOLOGY PROFESSOR Narrative [facility] - 11/16/2018 6:50 AM INDUSTRIAL PSYCHOLOGY PROFESSOR FASTING:YES FASTING: YES Resulting Agency Comment Performing Organization Information: ?Site ID: [place] ?Name: Jesika Matthew ?Address: [address] [place] [id number] ?Director: Alex Garcia D.O. MPH us Francisco Long MD LAB BLOOD ORDERABLES Final Res ult Performing Organization Address [facility] Phone Number [place] Carrillo * (ABNORMAL) LDL-Cholesterol (11/14/2018 8:37 AM INDUSTRIAL PSYCHOLOGY PROFESSOR) LDL 122(H) mg/dL (calc) [facility] RAMON Comment: Reference range: [...] LDL-C. Harry YUAN et al. RANDALL. 2013;310(19): 3779-1040 (http://education.[employer].Cloud Content/faq/IMI787) 11/14/2018 8:37 AM INDUSTRIAL PSYCHOLOGY PROFESSOR 11/14/2018 8:49 AM INDUSTRIAL PSYCHOLOGY PROFESSOR Narrative [facility] - 11/16/2018 6:50 AM INDUSTRIAL PSYCHOLOGY PROFESSOR FASTING:YES FASTING: YES Resulting Agency Comment Performing Organization Information: ?Site ID: [place] ?Name: [facility] ?Address: [facility] [place] [id number] ?Director: Alex Garcia D.O., MPH Francisco Long MD LAB BLOOD ORDERABLES Final Res ult Performing Organization Address [facility] de Phone Number [facility] [place] * Triglycerides (11/14/2018 8:37 AM INDUSTRIAL PSYCHOLOGY PROFESSOR) Triglycerides 70 <150 mg/dL [facility] [place] 11/14/2018 8:37 AM INDUSTRIAL PSYCHOLOGY PROFESSOR 11/14/2018 8:49 AM INDUSTRIAL PSYCHOLOGY PROFESSOR Narrative [facility] - 11/16/2018 6:50 AM INDUSTRIAL PSYCHOLOGY PROFESSOR FASTING:YES FASTING: YES Resulting Agency Comment Performing Organization Information: ?Site ID: [place] ?Name: [facility] [place] ?Address: [facility] [place] [id number] ?Director: Alex Garcia D.O., MPH Francisco Long MD LAB BLOOD ORDERABLES Final Res ult Performing Organization Address [facility] de Phone Number [facility] [place] * Cholesterol, HDL (11/14/2018 8:37 AM INDUSTRIAL PSYCHOLOGY PROFESSOR) HDL 57 >50 mg/dL [facility] [place] 11/14/2018 8:37 AM INDUSTRIAL PSYCHOLOGY PROFESSOR 11/14/2018 8:49 AM INDUSTRIAL PSYCHOLOGY PROFESSOR Narrative [facility] - 11/16/2018 6:50 AM INDUSTRIAL PSYCHOLOGY PROFESSOR FASTING:YES FASTING: YES Resulting Agency Comment Performing Organization Information: ?Site ID: [place] ?Name: [facility] [place] ?Address: [facility] [place] [id number] ?Director: Alex Garcia D.O., MPH us Francisco Long MD LAB BLOOD ORDERABLES Final Res ult [facility] [place] * Cholesterol, total (11/14/2018 8:37 AM INDUSTRIAL PSYCHOLOGY PROFESSOR) Cholesterol 195 <200 mg/dL [facility] - [place] 11/14/2018 8:37 AM INDUSTRIAL PSYCHOLOGY PROFESSOR 11/14/2018 8:49 AM INDUSTRIAL PSYCHOLOGY PROFESSOR Narrative [facility] - 11/16/2018 6:50 AM INDUSTRIAL PSYCHOLOGY PROFESSOR FASTING:YES FASTING: YES Resulting Agency Comment Performing Organization Information: ?Site ID: [place] ?Name: [facility] ?Address: [address] [place] [id number] ?Director: Alex Garcia D.O., MPH us Francisco Long MD LAB BLOOD ORDERABLES Final Res ult [facility] [place] documented in this encounter Visit Diagnoses Not on filedocumented in this encounter Care Teams Bookkeeper Assistant Relationship Specialty Start Date End Date Francisco Long MD PCP - General 02/23/17 05/15/22 documented as of this encounter
--- OUTSIDE RECORDS SUMMARY | 2024-11-16 13:11 | XMS_ITS | Encounter Summary ---
Author Organization [facility] Healthcare Address [address] [place] [address] Care Team Providers Care Training And Documentation Specialist Name Role Phone Francisco Long MD Primary Care Provider Neil Ag MD PhD Unavailable [phone] Ita Vazquez MD Unavailable Caron Mohan MD Unavailable Encounter Details Date Type Department Care Team (Late st Contact Info) Description 01/08/2019 [facility] Radiation Oncology [address] [place] [address] Neil Ag MD PhD [address] [place] [id number] Malignant neoplasm of upper-inner quadrant of left [...] on file Legal Sex Female 12:21 PM HAT RENOVATOR Gender Identity Not on file Sexual Orientation Not on file documented as of this encounter Last Filed Vital Signs Vital Sign Reading Time Taken Comments Blood Pressure 167/77 01/08/2019 10:50 AM HAT RENOVATOR Pulse 83 01/08/2019 10:50 AM HAT RENOVATOR Temperature 36.4 ??C (97.6 ??F) 01/08/2019 10:[address] Respiratory Rate 18 01/08/2019 10:50 AM HAT RENOVATOR Oxygen Saturation - - Inhaled Oxygen Concentration - - Weight 84.8 kg (187 lb) 01/08/2019 10:50 AM HAT RENOVATOR Height - - Body Mass Index 29.73 12/17/2018 2:50 PM HAT RENOVATOR documented in this encounter Progress Notes * Neil Ag MD PhD - 01/08/2019 10:50 AM CST Staff Physician: Neil Ag MD PhD Referring Physician: Patient Care Team: Ita Vazquez MD as Referring Physician (General Surgery) Date of Service: 01/08/2019 RADIATION ONCOLOGY ON TREATMENT VISIT (OTV) NOTE Diagnosis: Cancer Staging Malignant neoplasm of upper-inner quadrant of left breast in female, estrogen receptor positive (CMS/HCC) Staging form: Breast, AJCC 8th Edition - Pathologic stage from 12/17/2018: Stage IA (pT1b, pN1mi(sn), cM0, G2, ER: Positive, ID: Positive, HER2: Negative) - Signed by Neil Ag MD PhD on 12/17/2018 Encounter Diagnosis Name Primary? Malignant neoplasm of upper-inner quadrant of left breast in female, estrogen receptor positive(CMS/HCC) Yes TREATMENT: Radiation Treatments Active Plans LT BRST:1 Most recent treatment: Dose planned: 266 cGy (fraction 1 on 01/08/2019) Total: Dose planned: 4,256 cGy Elapsed Course Treatment Days: 0 Reference Points LT BRST Most recent treatment: Dose given: 266 cGy (on 01/08/2019) Total: Dose given: 266 cGy Elapsed Course Treatment Days: 0 SUBJECTIVE: Tolerating therapy well thus far. Denies pain (0/10). Denies swelling of the left breast. EXAM: BP 167/77 Pulse 83 Temp 36.4 ??C (97.6 ??F) Resp 18 Wt 84.8 kg (187 lb) BMI 29.73 kg/m?? Pain Score and Location 01/08/19 1050 PainSc: 0-No pain NAD. No dermatitis. Radiation Dermatitis: 0 - None Fatigue: 0 - None Dysphagia: 0 - None ASSESSMENT No side effects PLANS Continue with treatment RAD ONC PAIN PLAN: The patient is not currently having any pain that requires changes in pain management. RENOVATOR documented in this encounter Plan of Treatment Not on file documented as of this encounter Visit Diagnoses Diagnosis Malignant neoplasm of upper-inner quadrant of left breast in female, estrogen receptor positive (HCC)- Primary documented in this encounter Care Teams Training And Documentation Specialist Relationship Specialty Start Date End Date Francisco Long MD PCP - General 02/23/17 05/15/22 Neil Ag MD PhD [address] [place] [address] Radiation Oncologist Radiation Oncology 12/17/18 [place] [id number] [facility] [address] [place] [address] Referring Physician General Surgery 12/17/18 [place] [address] [facility] [address] [place], [place] [id number] Medical Oncologist/Delivery Mgr Medical Oncology 12/17/18 documented as of this encounter
--- OUTSIDE RECORDS SUMMARY | 2024-11-16 13:11 | XMS_ITS | Encounter Summary ---
Author Organization [facility] Healthcare Address [address] [place] [address] Care Team Providers Care Exhauster Engineer Name Role Phone Francisco Long MD Primary Care Provider [phone] Neil Ag MD PhD Unavailable [phone] Ita Vazuqez MD Unavailable Caron Mohan MD Unavailable Encounter Details Date Type Department Care Team (Late st Contact Info) Description 01/07/2019 11:00 AM ENGINEERING AIDE Treatment [facility] Radiation Oncology [address] [place] [address] Neil Ag MD PhD [address] [place] [address] Social History Tobacco Use Types Packs/Day Years Used Date Smoking Tobacco: Never Smokeless Tobacco: Never Alcohol Use Standard Drinks/Week Comments No 0 (1 standard drink = 0.6 oz pur e alcohol) Comments Unknown Sex and Gender Information Value Date Recorded Sex Assigned at Not on file Legal Sex Female 12:21 PM ENGINEERING AIDE Gender Identity Not on file Sexual Orientation Not on file documented as of this encounter Plan of Treatment Not on file documented as of this encounter Visit Diagnoses Not on filedocumented in this encounter Care Teams Exhauster Engineer Relationship Specialty Start Date End Date Francisco Long MD PCP - General 02/23/17 05/15/22 Neil Ag MD PhD [address] [place] [address] Radiation Oncologist Radiation Oncology 12/17/18 [place] [address] [facility] [address] [place] [address] Referring Physician General Surgery 12/17/18 [place] [address] [facility] [address] [place] [address] Medical Oncologist/Software Sales Consultant Medical Oncology 12/17/18 documented as of this encounter
--- OUTSIDE RECORDS SUMMARY | 2024-11-16 13:11 | XMS_ITS | Encounter Summary ---
Author Organization [facility] Medical Group Address [address] [facility] [address] [place] [address] Care Team Providers Care Drying Equipment Operator Name Role Phone Francisco Long MD Primary Care Provider Neil Ag MD PhD Unavailable [phone] Ita Vazquez MD Unavailable Caron Mohan MD Unavailable Encounter Details Date Type Department Care Team (Late st Contact Info) Description 11/22/2018 Telephone [facility] [address] [facility] [address] [place] [address] Francisco Long MD [address] [place] [address] Social History Tobacco Use Types Packs/Day Years Used Date Smoking Tobacco: Never Smokeless Tobacco: Never Alcohol Use Standard Drinks/Week Comments No 0 (1 standard drink = 0.6 oz pur e alcohol) Comments Unknown Sex and Gender Information Value Date Recorded Sex Assigned at Not on file Legal Sex Female 12:21 PM ASSISTANT PROFESSOR OF PSYCHOLOGY Gender Identity Not on file Sexual Orientation Not on file documented as of this encounter Miscellaneous Notes * Telephone Encounter - Josi Umaña MA - 11/22/2018 2:05 PM CST jr STANT PROFESSOR OF PSYCHOLOGY * Telephone Encounter - Yuli Lopez - 11/22/2018 1:51 PM CST FYI - Pt called to let Dr Long know that she had her lumpectomy went well today and she will know the results next week. STANT PROFESSOR OF PSYCHOLOGY documented in this encounter Plan of Treatment Not on file documented as of this encounter Visit Diagnoses Not on filedocumented in this encounter Care Teams Drying Equipment Operator Relationship Specialty Start Date End Date Francisco Long MD PCP - General 02/23/17 05/15/22 Neil Ag MD PhD [address] [place] [address] Radiation Oncologist Radiation Oncology 12/17/18 [place] [address] [facility] [address] [place], [place] [id number] Referring Physician General Surgery 12/17/18 [place] [address] [facility] [address] [place], [place] [id number] Medical Oncologist/Dbas Medical Oncology 12/17/18 documented as of this encounter
--- OUTSIDE RECORDS SUMMARY | 2024-11-16 13:11 | XMS_ITS | Encounter Summary ---
Author Organization [facility] Address [address] [place] [address] Care Team Providers Care Well Cleaner Name Role Phone Francisco Long MD Primary Care Provider [phone] Neil Ag MD PhD Unavailable [phone] Ita Vazquez MD Unavailable Caron Mohan MD Unavailable Reason for Visit * Reason Comments Medicare Wellness subsequent Encounter Details Date Type Department Care Team (Late st Contact Info) Description 12/17/2018 3:00 PM NEURODIAGNOSTIC TECH Office Visit [facility] [address] [place] [address] Francisco Long MD [address] [place] [address] [address] [place] [address] Medicare annual wellness visit, subsequent (Primary Dx); BMI 29.0-29.9,adult; Iron deficiency anemia, unspecified iron deficiency anemia type; Essential hypertension; History of breast cancer; History of uterine cancer Social History Tobacco Use Types Packs/Day Years Used Date Smoking Tobacco: Never Smokeless Tobacco: Never Alcohol Use Standard Drinks/Week Comments No 0 (1 standard drink = 0.6 oz pur e alcohol) Comments Unknown Sex and Gender Information Value Date Recorded Sex Assigned at Not on file Legal Sex Female 12:21 PM NEURODIAGNOSTIC TECH Gender Identity Not on file Sexual Orientation Not on file documented as of this encounter Last Filed Vital Signs Vital Sign Reading Time Taken Comments Blood Pressure 138/80 12/17/2018 2:50 PM NEURODIAGNOSTIC TECH Pulse 64 12/17/2018 2:50 PM NEURODIAGNOSTIC TECH Temperature - - Respiratory Rate 20 12/17/2018 2:50 PM NEURODIAGNOSTIC TECH Oxygen Saturation - - Inhaled Oxygen Concentration - - Weight 84.8 kg (187 lb) 12/17/2018 2:50 PM NEURODIAGNOSTIC TECH Height 168.9 cm (5' 6.5 ) 12/17/2018 2:50 PM NEURODIAGNOSTIC TECH Body Mass Index 29.73 12/17/2018 2:50 PM NEURODIAGNOSTIC TECH documented in this encounter Ordered Prescriptions Prescription Sig Dispense Quantity Refills Last Filled Start Date End Date losartan-hydroCHLO ROthiazide (HYZAAR) 100-12.5 mg per tablet Take 1 tablet by mouth daily. 90 tablet 3 12/17/2018 09/30/2019 letrozole (FEMARA) 2.5 mg tablet Take 1 tablet (2.5 mg total) by mouth daily. 30 tablet 11 12/17/2018 12/17/2019 documented in this encounter Progress Notes * Francisco Long MD - 12/17/2018 3:00 PM CST Subjective/Objective Patient ID: Jolene Cedillo is a 72 y.o. female. Chief Complaint Medicare Wellness (subsequent) HPI 72-year-old seen today with her Douglas this unfortunate woman had uterine cancer summer treated with hysterectomy and I believe a bilateral oophorectomy she subsequently found a breastcancer on a mammogram in October had surgery October 2018 lumpectomy followed by radiation therapy 16 times no chemotherapy she is onFemara therapy daily so far she feels good tolerating things well she is following up with the breast Center doing monthly breast exams mammograms as directed follow-up as directed Patient has a history of hypertension rheumatoid arthritis pre diabetes hyperlipidemia breast cancer uterine cancer history of total right knee replacement history of deep venous thrombosis bilateralarthroscopic knee surgery cataract surgery left total knee replacement hysterectomy breast lumpectomy Tobacco none alcohol rare use Patient had a colonoscopy September [address] 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 they have no children her is a mazariegos the been 40+ years Review of Systems Review of Systems neurological [...] ideation hematological no bleeding or bruising Vitals: 12/17/18 1450 BP: 138/80 BP Location: Right arm Patient Position: Sitting Pulse: 64 Resp: 20 Weight: 84.8 kg (187 lb) Height: 168.9 cm (5' 6.5 ) Physical Exam HEAD: normocephalic and atraumatic [...] visit: Medicare annual wellness visit, subsequent (Primary) BMI 29.0-29.9,adult Iron deficiency anemia, unspecified iron deficiency anemia type Essential hypertension History of breast cancer History of uterine cancer Other orders - Pneumococcal conjugate vaccine 13-valent IM (Prevnar-13) - letrozole (FEMARA) 2.5 mg tablet; Take 1 tablet (2.5 mg total) by mouth daily. - losartan-hydroCHLOROthiazide (HYZAAR) 100-12.5 mg per tablet; Take 1 tablet by mouth daily. She will follow up with Hematology Oncology regarding her uterine cancer breast cancer she will continue getting mammograms yearly the patient will get a pneumonia 13 vaccine today 23 in a year she is encouraged get the new shingles vaccine as soon as possible risk benefits of this vaccine were discussed with her she update flu shot each fall Laboratory evaluation will be done in 1 week before follow-up appointment in 3 months regarding heriron deficiency anemia patient had seen Hematology years ago for abnormal protein in her blood stream will discuss that further with her next visit Side effects, risks, interactions reviewed with patient. Indications for testing discussed. Any further problems to contact us. She was told what to look out for and verbalized understanding. The patient was given the opportunity to have all questions answered today and was in agreement with the plan of care. ODIAGNOSTIC TECH ODIAGNOSTIC TECH documented in this encounter Plan of Treatment Not on file documented as of this encounter Visit Diagnoses Diagnosis Medicare annual wellness visit, subsequent- Primary BMI 29.0-29.9,adult Iron deficiency anemia, unspecified iron deficiency anemia type Essential hypertension Unspecified essential hypertension History of breast cancer Personal history of malignant neoplasm of breast History of uterine cancer Personal history of malignant neoplasm of other parts of uterus documented in this encounter Discontinued Medications Medication Sig Discontinue Reason Start Date End Da te methotrexate sodium 2.5 mg tablets,dose pack Take 15 mg by mouth once a week. 01/07/2016 12/17/2018 losartan-hydroCHLOROthia zide (HYZAAR) 100-12.5 mg per tablet Take 1 tablet by mouth daily. Reorder 12/24/2017 12/17/2018 fluticasone (FLONASE) 50 mcg/actuation nasal spray SHAKE LIQUID AND USE 2 SPRAYS IN EACH NOSTRIL DAILY 11/27/2018 12/17/2018 documented as of this encounter Orders Immunization/Injection Count Last Ordered Date First Ordered Date PNEUMOCOCCAL CONJUGATE VACCI NE 13-VALENT IM 1 12/17/2018 documented in this encounter Care Teams Well Cleaner Relationship Specialty Start Date End Date Francisco Long MD PCP - General 02/23/17 05/15/22 Neil Ag MD PhD [address] [place] [id number] Radiation Oncologist Radiation Oncology 12/17/18 [place] [id number] [address] [facility] [address] [place] [address] Referring Physician General Surgery 12/17/18 [place] [id number] [facility] [address] [place], [place] [id number] Medical Oncologist/Gang Plank Workman Medical Oncology 12/17/18 documented as of this encounter
--- OUTSIDE RECORDS SUMMARY | 2024-11-16 13:11 | XMS_ITS | Encounter Summary ---
Author Organization [facility] Address [address] [place] [address] Care Team Providers Care Manager Mail Name Role Phone Francisco Long MD Primary Care Provider [phone] Neil Peterson MD PhD Unavailable [phone] Ita Vazquez MD Unavailable Caron Mohan MD Unavailable Reason for Visit * Consultation (Routine) - Closed Specialty Diagnoses / Procedures Referred By Halima garcia Referred To Contact Radiation Oncology Diagnoses Malignant neoplasm of left female breast, unspecified estrogen receptor status, unspecified site of breast (HCC) Ita Vazquez MD Phone: tel: fax: Neil Peterson MD PhD Phone: tel: fax: Referral ID Status Reason Start Date Expiration Date V isits Requested Visits Authorized [id number] Closed Specialty Services Required 12/03/2018 06/13/2020 1 1 Encounter Details Date Type Department Care Team (Late st Contact Info) Description 12/17/2018 1:30 PM MARKETING RESEARCH INTERN Consult [facility] Radiation Oncology [address] [place] [id number] Neil Peterson MD PhD [address] [place] [id number] [place] [id number] [facility] [address] [place] [address] Malignant neoplasm of upper-inner quadrant of left breast in female, estrogen receptor positive (CMS/HCC) (Primary Dx); Malignant neoplasm of left female breast, unspecified estrogen receptor status, unspecified site of breast (CMS/HCC) Discharge Disposition: Discharge to home or self care Social History Tobacco Use Types Packs/Day Years Used Date Smoking Tobacco: Never Smokeless Tobacco: Never Alcohol Use Standard Drinks/Week Comments No 0 (1 standard drink = 0.6 oz pur e alcohol) Comments Unknown Sex and Gender Information Value Date Recorded Sex Assigned at Not on file Legal Sex Female 12:21 PM MARKETING RESEARCH INTERN Gender Identity Not on file Sexual Orientation Not on file documented as of this encounter Last Filed Vital Signs Vital Sign Reading Time Taken Comments Blood Pressure 153/68 12/17/2018 2:21 PM MARKETING RESEARCH INTERN Pulse 85 12/17/2018 2:21 PM MARKETING RESEARCH INTERN Temperature 36.4 ??C (97.6 ??F) 12/17/2018 2:21 PM CS T Respiratory Rate 20 12/17/2018 2:21 PM MARKETING RESEARCH INTERN Oxygen Saturation - - Inhaled Oxygen Concentration - - Weight 84.8 kg (187 lb) 12/17/2018 2:21 PM MARKETING RESEARCH INTERN Height - - Body Mass Index 29.29 11/16/2018 8:49 AM MARKETING RESEARCH INTERN documented in this encounter Discharge Disposition Disposition Code Departure Means Destination Discharge to home or self care documented in this encounter Progress Notes * Neil Peterson MD PhD - 12/17/2018 1:30 PM CST Staff Physician: Neil Peterson MD PhD Referring Physician: Patient Care Team: Ita Vazquez MD as Referring Physician (General Surgery) Date of Service: 12/17/2018 RADIATION ONCOLOGY CONSULT NOTE IDENTIFYING DATA: Cancer Staging Malignant neoplasm of upper-inner quadrant of left breast in female, estrogen receptor positive (CMS/HCC) Staging form: Breast, AJCC 8th Edition - Pathologic stage from 12/17/2018: Stage IA (pT1b, pN1mi(sn), cM0, G2, ER: Positive, MI: Positive, HER2: Negative) - Signed by Neil Peterson MD PhD on 12/17/2018 Jolene Cedillo is a 72 y.o. 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 HISTORY OF PRESENT ILLNESS: Ms. Cedillo came to initial oncologic attention in August 2018 with an abnormality seen on screening mammogram. Specifically, bilateral screening mammogram and left diagnostic mammogram on 09/03/2018 showed a new irregularly shaped 1.6 cm structure in the left inner breast around the 9 o'clock position 7 cm deep to the nipple and a stable 1.7 cm density in the left subareolar breast (BI-RADS 0). An ultrasound a left breast was then performed on 09/11/2018 which showed a solid nodule at the 10o'clock position measuring 1.3 x 1.2 cm as well as a lobulated cyst at the 9 o'clock position measuring 2.0 x 1.2 cm (BI-RADS 4). The patient was then referred to Dr. Vazquez for further evaluation and biopsy of the left breast mass at the outside facility showed invasive ductal carcinoma, ER/MI positive, HER2 negative (+1 on IHC) with associated low to intermediate grade DCIS. There was no evidenceof lymphovascular invasion. Surgical options were discussed with the patient who ultimately decidedto undergo breast conservation and had lumpectomy and sentinel lymph node biopsy on 11/14/2018. Pathology was consistent with invasive ductal carcinoma, Draper grade 6 of 9, 1.3 cm in greatest dimension. The closest margin was 3 mm of the posterior margin, the patient did also undergo re-excision intraoperatively of the medial to deep margin which was negative for any carcinoma on final pathol ogy. There was a micrometastasis seen in 1 of 2 sentinel lymph nodes, the other was negative. The patient then met with Dr. Mohan on 12/11/2018 to discuss systemic therapy. The recommendation was for hormonal therapy after radiation and Oncotype DX is pending, though the anticipation is that shewill not be high risk. She presents to our department for further discussion and consideration of adjuvant radiation therapy. Currently, the patient is doing well without any significant complaints. She continues to heal wellfrom surgery without any residual postoperative pain or any pain otherwise (0/10). She denies any redness, tenderness, or discharge from her surgical incisions. She has some continued swelling of that left breast. She denies any headache, nausea, vomiting, vision changes, or any focal numbness or weakness. She denies any new bony pain. Of note, the patient has a history of FIGO stage IA endometrial carcinoma status post surgery alone in June [address] Cadena with no adjuvant therapy. Additionally, the patient does have a history of rheumatoid arthritis, diagnosed approximately 3 years agoand is on Methotrexate and this is well controlled. She does not have an ICD or pacemaker in place. PREVIOUS RADIATION: None PAST MEDICAL HISTORY: has a past medical history of OTHER MEDICAL; OTHER MEDICAL; OTHER MEDICAL; OTHER MEDICAL; Hyperlipidemia; Hypertension; Screening mammogram, encounter for (1946); and Uterine cancer ([facility]) (04/2018). PAST SURGICAL HISTORY: has a past surgical history that includes Cataract Extraction and Hysterectomy (06/2018). FAMILY HISTORY: family history includes Diabetes in her father and mother; Diabetes type II in an other family member; Heart attack in her father; Heart disease in her father; Other in her father's sister. SOCIAL HISTORY: reports that she has never smoked. She has never used smokeless tobacco. She reports that she does not drink alcohol or use drugs. History Last Reviewed by Neil Peterson MD PhD on 12/17/2018 at 4:50 PM Sections Reviewed Medical, Surgical, Family, Tobacco ALLERGIES: Allergies as of 12/17/2018 Reviewed On: 12/17/2018 By: Neil Peterson MD PhD Severity Noted Reaction Type Reactions Atorvastatin Medium 03/04/2018 Muscle pain Codeine Low Nausea only Reaction: Nausea, MEDICATIONS: Review Info User Date and Time NEIL PETERSON MD PHD [[id number]] 12/17/2018 4:50 PM REVIEW OF SYSTEM Except for the symptoms described above, the remainder of the review of systems is negative. Specifically, except as noted, when asked, the patient expressed no complaints relative to constitutional,eyes, ears, nose, mouth, throat, neurologic, cardiovascular, pulmonary, breasts, GI, , skin, musculoskeletal, endocrine, hematologic/lymphatic or immunologic systems. RADIATION SCREENING QUESTIONS Prior radiation therapy: No Pacemaker: No Connective tissue disease: Yes, history of RA on methotrexate Inflammatory bowel disease: No PHYSICAL EXAMINATION: ECOG Performance Status: 0 BP 153/68 Pulse 85 Temp 36.4 ??C (97.6 ??F) Resp 20 Wt 84.8 kg (187 lb) BMI 29.29 kg/m?? Pain Score and Location 12/17/18 1421 PainSc: 0-No pain Physical Exam Constitutional: She is oriented to person, place, and time. She appears well- developed and well-nourished. No distress. HENT: Head: Normocephalic and atraumatic. Mouth/Throat: Oropharynx is clear and moist. Eyes: Pupils are equal, round, and reactive to light. EOM are normal. Neck: Normal range of motion. Neck supple. Cardiovascular: Normal rate, regular rhythm and normal heart sounds. Pulmonary/Chest: Effort normal and breath sounds normal. No respiratory distress. The patient is still wearing her postsurgical compression bra and does not want to take it off for complete exam, but was able to visualize surgical incisions which appear well healed and clean, dry,and intact. No erythema, tenderness, or induration. No discharge. Right breast exam deferred. Abdominal: Soft. Bowel sounds are normal. She exhibits no distension. Musculoskeletal: Normal range of motion. She exhibits no edema or tenderness. Lymphadenopathy: She has no cervical adenopathy. She has no axillary adenopathy. Neurological: She is alert and oriented to person, place, and time. No cranial nerve deficit or sensory deficit. Psychiatric: She has a normal mood and affect. Her behavior is normal. Judgment and thought contentnormal. DIAGNOSTIC REPORTS REVIEWED: Imaging: I personally reviewed the imaging and Pertinent findings as per HPI. Laboratory/Patholoy: I personally reviewed the laboratory and pathology values and Pertinent findings as per HPI. ASSESSMENT: Jolene Cedillo is a 72 y.o. 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 We reviewed the workup, staging, and treatment options for early stage breast cancer, specifically the role of adjuvant radiation therapy in the setting of breast conservation. We discussed that adjuvant radiation is indicated to help reduce is post lateral breast tumor recurrence and, per EBCTCG meta analysis, improve overall survival. We did discuss that there are a sub group of women based on the CALGB trial who may experience limited benefit from adjuvant radiation therapy compared to hormonal therapy alone due to the overall low risk of ipsilateral breast tumor recurrence in these patients. Though the patient fits into this category based on age and most tumor characteristics, the presence of microinvasion on sentinel lymph node biopsy may place her at a higher risk for recurrence on hormonal therapy alone compared to the control group in that study (who were determined to be clinically node negative and not all underwent axillary staging), and so I would favor adjuvant radiation therapy in her case. On the other hand, we then discussed the Z0011 trial and that for patients who had a positive sentinel lymph node and no further axillary dissection, the vast majority received tangent radiation only and given her only micro metastatic disease, I would fa vor treatment to the breast alone. Finally we discussed various dose and fractionation options, andthat I would recommend hypo fractionated radiation therapy, and particularly in the prone position to help limit toxicity to the underlying organs at risk. With regard to toxicity, we also discussed the potential risk of increased acute and late toxicity in the setting of active collagen vascular disease. While some published reports suggest that active rheumatoid arthritis may be a factor increasing the degree and/or severity of toxicity, in general, the available data suggests that the risk of complications with rheumatoid arthritis does not appear to be as great as that with other collagenvascular diseases, particularly scleroderma and lupus. Therefore, I do not feel that the patient would be at significantly increased risk for toxicity by undergoing radiation therapy. Finally, we discussed that for patients who have adjuvant chemotherapy in addition to radiation, chemotherapy is typically given 1st and so radiation would be started after that has been completed. Oncotype DX is still pending, but the current expectation is that she will not be high risk and will not likely benefit from chemotherapy. PLAN: 1. I recommend adjuvant radiation to 4256 cGy in 16 fractions to the left breast without treatment to the regional lymph nodes. 2. I discussed the rationale, benefits, and risks of radiation therapy to the left breast with the patient and family. Specifically, we discussed the short and long term care pharmacist risks of radiation therapy. The short term risks include, but are not limited to, fatigue, edema, hyperpigmentation, and dermatitis. The halfway risks include, but are not limited to, chronic skin changes, radiation pneumonitis, increased risk of rib fracture, increased risk of lymphedema, and increased risk of cardiovasculardisease. The patient and family asked appropriate questions and expressed understanding. Informed consent was signed. 3. As the patient is only 3 weeks out from her surgery and Oncotype DX is still pending, we have tentatively scheduled CT simulation for Sunday December 30, 2018 with anticipated treatment start date soon thereafter if chemotherapy is not indicated. 4. We will follow-up on Oncotype DX results to confirm that the patient will not undergo systemic therapy. RAD ONC PAIN PLAN: The patient is not currently having any pain that requires changes in pain management. The patient and family know they can contact our office at any time with any questions or concerns.Thank you for allowing me to participate in the care of this patient. ETING RESEARCH INTERN ETING RESEARCH INTERN documented in this encounter Plan of Treatment Not on file documented as of this encounter Visit Diagnoses Diagnosis Malignant neoplasm of upper-inner quadrant of left breast in female, estrogen receptor positive (HCC)- Primary Malignant neoplasm of left female breast, unspecified estrogen receptor status, unspecified site of breast (HCC) documented in this encounter Orders Outpatient Referral Count Last Ordered Date st Ordered Date AMB REFERRAL TO RADIATION ONCOLOGY 1 2018 documented in this encounter Care Teams Manager Mail Relationship Specialty Start Date End Date Francisco Long MD PCP - General 02/23/17 05/15/22 Neil Peterson MD PhD [address] [place] [id number] Radiation Oncologist Radiation Oncology 12/17/18 [place] [id number] [address] [facility] [address] [place] [address] Referring Physician General Surgery 12/17/18 [place] [id number] [facility] [address] [place] [address] Medical Oncologist/Oxygen Furnace Operator Medical Oncology 12/17/18 documented as of this encounter
--- OUTSIDE RECORDS SUMMARY | 2024-11-16 13:11 | XMS_ITS | Encounter Summary ---
Author Organization [facility] Healthcare Address [address] [place] [address] Care Team Providers Care Community Coordinator Name Role Phone Francisco Long MD Primary Care Provider [phone] Reason for Visit * Diagnostic Imaging (Routine) - Closed Specialty Diagnoses / Procedures Referred By Halima garcia Referred To Contact Diagnoses Abnormal mammogram Procedures US Breast Left Limited US Breast Left Complete Micki Cadena MD Phone: tel: fax: [address] [address] Referral ID Status Reason Start Date Expiration Date Visits Re quested Visits Authorized [id number] Closed 09/10/2018 03/21/2020 1 1 Encounter Details Date Type Department Care Team (Latest Contact Info) Description 09/11/2018 8:03 AM CDT - 09/11/2018 11:59 PM CDT Hospital Encounter [facility] [address] [place] [address] [place] [address] [place] [address] Abnormal mammogram Discharge Disposition: Discharge to home or self care Social History Tobacco Use Types Packs/Day Years Used Date Smoking Tobacco: Never Smokeless Tobacco: Never Alcohol Use Standard Drinks/Week Comments No 0 (1 standard drink = 0.6 oz pur e alcohol) Comments Unknown Sex and Gender Information Value Date Recorded Sex Assigned at Not on file Legal Sex Female 12:21 PM ARTIFICIAL FLOWERS SUPERVISOR Gender Identity Not on file Sexual Orientation Not on file documented as of this encounter Medications at Time of Discharge ferrous sulfate 325 mg (65 mg of elemental iron) tablet take 1 tablet by ORAL route 2 times every day 60 12 02/25/2016 09/14/2018 losartan-hydroCHL OROthiazide (HYZAAR) 100-12.5 mg per tablet Take 1 tablet by mouth daily. 90 tablet 3 12/24/2017 12/17/2018 methotrexate sodium 2.5 mg tablets,dose pack Take 15 mg by mouth once a week. 01/07/2016 12/17/2018 documented as of this encounter Discharge Disposition Disposition Code Departure Means Destination Discharge to home or self care documented in this encounter Plan of Treatment Not on file documented as of this encounter Procedures Procedure Name Priority Date/Time Associated Diagnosis Comments US BREAST LEFT LIMITED Schedule Routine, Read Routine (OP Routine) 09/11/2018 8:58 AM CDT Abnormal mammogram documented in this encounter Results * (ABNORMAL) US Breast Left Limited (09/11/2018 8:58 AM CDT) Anatomical Region Laterality Modality Breast Left Ultrasound 09/12/2018 8:48 AM CDT Impressions 09/12/2018 8:49 AM CDT BIRADS Category 4: Suspicious abnormality. Biopsy should be considered. Ultrasound guided biopsy of the solid nodule at the 10 o'clock position. Digital technology was employed plus computer-aided detection software (R2) was utilized in interpretation of these images. This facility utilizes a reminder system to notify patients of yearly mammograms. Electronically signed by: Alfonso Dickens M.D. Narrative 09/12/2018 8:49 AM CDT EXAMINATION: Ultrasound left breast limited HISTORY: Abnormal mammogram PRIOR: Mammograms from 09/03/2018 FINDINGS: A solid nodule is noted in the left breast at the 10 o'clock position measuring 1.3 x 1.2 cm. ??The posterior margin is somewhat indistinct. Further evaluation with ultrasound guided biopsy is recommended. Also noted is a lobulated cyst at the 9 o'clock position measuring 2.0 x 1.2 cm. us Micki Cadena MD IMG MAMMO PROCEDURES Final R esult documented in this encounter Visit Diagnoses Diagnosis Abnormal mammogram Abnormal mammogram, unspecified documented in this encounter Care Teams Community Coordinator Relationship Specialty Start Date End Date Francisco Long MD PCP - General 02/23/17 05/15/22 documented as of this encounter
--- OUTSIDE RECORDS SUMMARY | 2024-11-16 13:11 | XMS_ITS | Encounter Summary ---
Author Organization [facility] Address [address] [place] [address] Care Team Providers Care Automobile Mechanic Motor Name Role Phone Francisco Long MD Primary Care Provider [phone] Encounter Details Date Type Department Care Team (Late st Contact Info) Description 11/15/2018 Telephone [facility] [address] [facility] [address] [place] [address] Jami Pettit MA Social History Tobacco Use Types Packs/Day Years Used Date Smoking Tobacco: Never Smokeless Tobacco: Never Alcohol Use Standard Drinks/Week Comments No 0 (1 standard drink = 0.6 oz pur e alcohol) Comments Unknown Sex and Gender Information Value Date Recorded Sex Assigned at Not on file Legal Sex Female 12:21 PM VISUAL COORDINATOR Gender Identity Not on file Sexual Orientation Not on file documented as of this encounter Miscellaneous Notes * Telephone Encounter - Jami Pettit MA - 11/15/2018 9:32 AM VISUAL COORDINATOR Patient aware appt scheduled for 11/16/18 at 9:00 She said she has not been on her irion since Sunday Or Sunday, because she is having a breast lumpectomy on Sunday the . Was told to stop her Iron, has been very tired last 2 days She wanted to let you know this AL COORDINATOR * Telephone Encounter - Jami Pettit MA - 11/15/2018 9:29 AM VISUAL COORDINATOR ----- Message from Francisco Long MD sent at 11/15/2018 9:28 AM VISUAL COORDINATOR ----- Patient is anemic low on iron have her see me tomorrow morning 9:00 a.m. If possible AL COORDINATOR documented in this encounter Plan of Treatment Not on file documented as of this encounter Visit Diagnoses Not on filedocumented in this encounter Care Teams Automobile Mechanic Motor Relationship Specialty Start Date End Date Francisco Long MD PCP - General 02/23/17 05/15/22 documented as of this encounter
--- OUTSIDE RECORDS SUMMARY | 2024-11-16 13:11 | XMS_ITS | Encounter Summary ---
Author Organization [facility] Healthcare Address [address] [place] [address] Care Team Providers Care Director Of Music Therapy Name Role Phone Francisco Long MD Primary Care Provider [phone] Neil Ag MD PhD Unavailable [phone] Ita estrada MD Unavailable Caron Mohan MD Unavailable Encounter Details Date Type Department Care Team (Late st Contact Info) Description 01/09/2019 Orders Only RAD ONC TREATMENTS Miscellaneous, Not In File Social History Tobacco Use Types Packs/Day Years Used Date Smoking Tobacco: Never Smokeless Tobacco: Never Alcohol Use Standard Drinks/Week Comments No 0 (1 standard drink = 0.6 oz pur e alcohol) Comments Unknown Sex and Gender Information Value Date Recorded Sex Assigned at Not on file Legal Sex Female 12:21 PM LEAD CLINICAL RESEARCH COORDINATOR Gender Identity Not on file Sexual Orientation Not on file documented as of this encounter Plan of Treatment Not on file documented as of this encounter Procedures Procedure Name Priority Date/Time Associated Diagnosis Comments RAD ONC ARIA SESSION SUMMARY 01/09/2019 10:45 AM LEAD CLINICAL RESEARCH COORDINATOR documented in this encounter Results * RAD ONC ARIA SESSION SUMMARY (01/09/2019 10:45 AM LEAD CLINICAL RESEARCH COORDINATOR) Course Name C1 L BRS SC 2019 ARIA Course Plan Date 12/30/2018 12:25 PM ARIA Elapsed Days 1 ARIA Treatment Start Date 01/08/2019 ARIA Treatment Site LT BRST ARIA Dose Given To Date (cGy) 532 ARIA Session Dosage Given (cGy) 266 ARIA Plan ID LT BRST:1 ARIA Fractions Treated 2 ARIA Prescribed Dose Per Fraction (cGy) 266 ARIA Prescribed Total Dose (cGy) 4,256 ARIA 01/09/2019 10:4 5 AM LEAD CLINICAL RESEARCH COORDINATOR us Not In File Miscellaneous RADIATION ONCOLOGY ORD ERABLES Final Result ARIA documented in this encounter Visit Diagnoses Not on filedocumented in this encounter Care Teams Director Of Music Therapy Relationship Specialty Start Date End Date Francisco Long MD PCP - General 02/23/17 05/15/22 Neil Ag MD PhD [address] [place] [address] Radiation Oncologist Radiation Oncology 12/17/18 [place] [address] [address] Referring Physician General Surgery 12/17/18 [place] [address] [address] [facility] [address] [place] [address] Medical Oncologist/Marine Farmer Medical Oncology 12/17/18 documented as of this encounter
--- OUTSIDE RECORDS SUMMARY | 2024-11-16 13:11 | XMS_ITS | Encounter Summary ---
Author Organization [facility] Healthcare Address [address] [place] [address] Care Team Providers Care Pasta Press Operator Name Role Phone Francisco Long MD Primary Care Provider [phone] Neil Ag MD PhD Unavailable [phone] Ita estrada MD Unavailable Caron Mohan MD Unavailable Encounter Details Date Type Department Care Team (Late st Contact Info) Description 01/08/2019 Orders Only RAD ONC TREATMENTS Miscellaneous, Not In File Social History Tobacco Use Types Packs/Day Years Used Date Smoking Tobacco: Never Smokeless Tobacco: Never Alcohol Use Standard Drinks/Week Comments No 0 (1 standard drink = 0.6 oz pur e alcohol) Comments Unknown Sex and Gender Information Value Date Recorded Sex Assigned at Not on file Legal Sex Female 12:21 PM FRONT OFFICE ASSISTANT Gender Identity Not on file Sexual Orientation Not on file documented as of this encounter Plan of Treatment Not on file documented as of this encounter Procedures Procedure Name Priority Date/Time Associated Diagnosis Comments RAD ONC ARIA SESSION SUMMARY 01/08/2019 10:43 AM FRONT OFFICE ASSISTANT documented in this encounter Results * RAD ONC ARIA SESSION SUMMARY (01/08/2019 10:43 AM FRONT OFFICE ASSISTANT) Course Name C1 L BRS [place] 2019 ARIA Course Plan Date 12/30/2018 12:25 PM ARIA Elapsed Days 0 ARIA Treatment Start Date 01/08/2019 ARIA Treatment Site LT BRST ARIA Dose Given To Date (cGy) 266 ARIA Session Dosage Given (cGy) 266 ARIA Plan ID LT BRST:1 ARIA Fractions Treated 1 ARIA Prescribed Dose Per Fraction (cGy) 266 ARIA Prescribed Total Dose (cGy) 4,256 ARIA 01/08/2019 10:4 3 AM FRONT OFFICE ASSISTANT us Not In File Miscellaneous RADIATION ONCOLOGY ORD ERABLES Final Result ARIA documented in this encounter Visit Diagnoses Not on filedocumented in this encounter Care Teams Pasta Press Operator Relationship Specialty Start Date End Date Francisco Long MD PCP - General 02/23/17 05/15/22 Neil Ag MD PhD [address] [place] [address] Radiation Oncologist Radiation Oncology 12/17/18 [place] [address] [address] Referring Physician General Surgery 12/17/18 [place] [address] [facility] [address] [place] [address] Medical Oncologist/Food Truck Caterer Medical Oncology 12/17/18 documented as of this encounter
--- OUTSIDE RECORDS SUMMARY | 2024-11-16 13:11 | XMS_ITS | Encounter Summary ---
Author Organization [facility] Address [address] [facility] [address] [place] [address] Care Team Providers Care Glassie Name Role Phone Francisco Long MD Primary Care Provider [phone] Reason for Visit * Reason Comments Cough Chills Generalized Body Aches Encounter Details Date Type Department Care Team (Late st Contact Info) Description 09/13/2018 1:00 PM CDT Office Visit [facility] [address] [facility] [address] [place] [address] Francisco Long MD [address] [place] [address] [address] [place] [address] Laceration of left middle finger without foreign body without damage to nail, initial encounter (Primary Dx); BMI 29.0-29.9,adult; Acute bronchitis, unspecified organism; History of uterine cancer; Abnormal mammogram Social History Tobacco Use Types Packs/Day Years Used Date Smoking Tobacco: Never Smokeless Tobacco: Never Alcohol Use Standard Drinks/Week Comments No 0 (1 standard drink = 0.6 oz pur e alcohol) Comments Unknown Sex and Gender Information Value Date Recorded Sex Assigned at Not on file Legal Sex Female 12:21 PM CHART CLERK Gender Identity Not on file Sexual Orientation Not on file documented as of this encounter Last Filed Vital Signs Vital Sign Reading Time Taken Comments Blood Pressure 144/80 09/13/2018 12:49 PM CDT Pulse 93 09/13/2018 12:49 PM CDT Temperature - - Respiratory Rate 16 09/13/2018 12:49 PM CDT Oxygen Saturation - - Inhaled Oxygen Concentration - - Weight 86.2 kg (190 lb) 09/13/2018 12:49 PM CDT Height 170.2 cm (5' 7 ) 09/13/2018 12:49 PM CDT Body Mass Index 29.76 09/13/2018 12:49 PM CDT documented in this encounter Ordered Prescriptions Prescription Sig Dispense Quantity Refills Last Filled Start Date End Date azithromycin (ZITHROMAX) 250 mg tablet Take 2 tabs (500 mg) by mouth today, than 1 tab (250 mg) daily for 4 days. 6 tablet 09/13/2018 09/18/2018 documented in this encounter Progress Notes * Francisco Long MD - 09/13/2018 1:00 PM CDT Subjective/Objective Patient ID: Jolene Cedillo is a 72 y.o. female. Chief Complaint Cough; Chills; and Generalized Body Aches HPI Have seen today she 72 years of age she was found have uterine cancer this year at some vaginal bleeding went to OBGYN she had a hysterectomy she is uncertain whether took out ovaries are not she recently had a abnormal mammogram done ultrasound was abnormal this week and she has been referred to [facility] cancer specialist for possible biopsy next week can't remember the name but she states she will follow-up on this Patient has history of rheumatoid arthritis hypertension currently she has had a having quite a bitof a cough productive cough yellowish phlegm been gone for least 3 4 days Immunizations the patient was encouraged get a flu shot each fall risk benefits of flu vaccines were discussed with her at length the patient was encouraged get the new shingles vaccine as soon as possible the risk benefits of this vaccine were discussed with her at length she understands with the new shingles vaccine she can get this despite her methotrexate therapy. She does have a laceration on her skin today and a Tdap will be given today as well she states she wants to get this done regardless because of a friend of hers is having a baby and they will let her see the baby until she has aTdap Review of Systems she states she has follow-up with the OB as directed her help desk administrator as directed Vitals: 09/13/18 1249 BP: 144/80 BP Location: Right arm Patient Position: Sitting Pulse: 93 Resp: 16 Weight: 86.2 kg (190 lb) Height: 170.2 cm (5' 7 ) Physical Exam She is pleasant no distress the nose those remarkable neck is supple lungs are clear cardiovascularregular abdomen soft nontender Assessment/Plan Diagnoses and all orders for this visit: Laceration of left middle finger without foreign body without damage to nail, initial encounter (Primary) BMI 29.0-29.9,adult Acute bronchitis, unspecified organism History of uterine cancer Abnormal mammogram Other orders - azithromycin (ZITHROMAX) 250 mg tablet; Take 2 tabs (500 mg) by mouth today, than 1 tab (250 mg) daily for 4 days. - Flu Vaccine High Dose Tri PF 65y+ IM - Fluzone - Tdap vaccine greater than or equal to 7yo IM She has got a small laceration left middle finger Tdap today She has acute bronchitis Z-Otilio will be prescribed History of uterine cancer follow up with OBGYN in Oncology as directed Recent abnormal mammogram she states she skip her mammogram last year recommend she do self-breast examination monthly mammogram yearly and follow-up with breast specialist as directed Patient get a flu shot each fall she had Tdap today she update tetanus every 10 years the patient was encouraged get the new pneumonia vaccine next visit in the old pneumonia vaccine a year later shehas does she was encouraged get the new shingles vaccine this fall at her local pharmacy Side effects, risks, interactions reviewed with patient. [...] as of this encounter Visit Diagnoses Diagnosis Laceration of left middle finger without foreign body without damage to nail, initial encounter- Primary BMI 29.0-29.9,adult Acute bronchitis, unspecified organism History of uterine cancer Personal history of malignant neoplasm of other parts of uterus Abnormal mammogram Abnormal mammogram, unspecified documented in this encounter Discontinued Medications Medication Sig Discontinue Reason Start Date End Da te ferrous sulfate 325 mg (65 mg of elemental iron) tablet take 1 tablet by ORAL route 2 times every day 02/25/2016 09/14/2018 documented as of this encounter Orders Immunization/Injection Count Last Ordered Date First Ordered Date FLU VACCINE HD TRI PF 65Y+ IM 1 09/13/2018 TDAP VACCINE GREATER THAN OR EQUAL TO 7YO IM 1 09/13/2018 documented in this encounter Care Teams Glassie Relationship Specialty Start Date End Date Francisco Long MD PCP - General 02/23/17 05/15/22 documented as of this encounter
--- OUTSIDE RECORDS SUMMARY | 2024-11-16 13:13 | XMS_ITS | Encounter Summary ---
Author Organization [facility] Address [address] [place] [address] Phone Care Team Providers Care Order Entry Name Role Phone Francisco Long MD Primary Care Provider [phone] Neil Ag MD PhD [facility] Un[facility] Caron Mohan MD Unavailable Marleni Chiu MA Unavailable [phone] Pebbles Felton MD Unavailable [phone] Mounika Cruz RN Unavailable [phone] Yamileth Meade MA Unavailable [phone] Mariangel Quiñonez MD Primary Care Provide r Encounter Details Date Type Department Care Team (Late st Contact Info) Description 2017 Orders Only [facility] Provider, MD Annabelle [address] [place] [address] Social History Tobacco Use Types Packs/Day Years Used Date Smoking Tobacco: Never Smokeless Tobacco: Never Alcohol Use Standard Drinks/Week Comments No 0 (1 standard drink = 0.6 oz pur e alcohol) Comments Unknown Sex and Gender Information Value Date Recorded Sex Assigned at Not on file Legal Sex Female 12:21 PM BIOCHEMIST Gender Identity Not on file Sexual Orientation Not on file documented as of this encounter Plan of Treatment Not on file documented as of this encounter Procedures Procedure Name Priority Date/Time Associated Diagnosis Comments DISCHARGE LABORATORY CUMULATIVE REPORT 2017 12:00 AM BIOCHEMIST documented in this encounter Results * DISCHARGE LABORATORY CUMULATIVE REPORT (2017 12:00 AM BIOCHEMIST) Narrative 2017 12:00 AM BIOCHEMIST Ordered by an unspecified provider. Historical Provider LAB BLOOD ORDERABLES Humaira l Result documented in this encounter Visit Diagnoses Not on filedocumented in this encounter Additional Health Concerns Infection Onset Date Last Indicated Resolved Time COVID: Suspected 12/28/2020 12/28/2020 12/29/2020 7:21 AM BIOCHEMIST Respiratory Infection (TITI), contact + droplet Comment:Automatically added due to negative COVID-19 result. 12/29/2020 12/29/2020 01/12/2021 3:0 6 AM BIOCHEMIST COVID: Suspected 12/07/2021 12/07/2021 12/07/2021 1:26 PM BIOCHEMIST COVID19 12/07/2021 12/07/2021 12/17/2021 3:05 AM BIOCHEMIST COVID: Recovered Comment:Added based on recent COVID infection. 12/17/2021 03/02/2022 04/16/2022 3:05 AM C DT COVID: Suspected 12/08/2022 12/08/2022 12/08/2022 11:08 AM BIOCHEMIST COVID19 12/08/2022 12/08/2022 12/18/2022 3:05 AM BIOCHEMIST COVID: Recovered Comment:Added based on recent COVID infection. 12/18/2022 02/11/2023 03/18/2023 3:06 AM C DT documented as of this encounter Care Teams Order Entry Relationship Specialty Start Date End Date Francisco Long MD PCP - General 02/23/17 05/15/22 Mariangel Quiñonez MD [address] [address] PCP - General Family Medicine 05/16/22 Niel Ag MD PhD [address] [place] [address] Radiation Oncologist Radiation Oncology 12/17/18 [place] [address] [facility] [address] [place], [place] [id number] Referring Physician General Surgery 12/17/18 [place] [address] [address] [facility] [address] [place], [place] [id number] Medical Oncologist/Sports Book Server Medical Oncology 12/17/18 Marleni Chiu MA [address] [place] [address] [address] [place] [address] ACO Care Trick Rodeo Rider 12/04/19 12/04/19 Pebbles Felton MD [address] [place] [address] [address] [place] [address] Consulting Physician Gastroenterology 01/07/20 Mounika Cruz RN [address] [place] [address] [address] [place] [address] Master Rigger 11/17/20 11/28/20 Yamileth Meade MA [address] [place] [address] [address] [place], [place] [id number] ACO Care Trick Rodeo Rider 04/26/21 04/26/21 documented as of this encounter
--- OUTSIDE RECORDS SUMMARY | 2024-11-16 13:13 | XMS_ITS | Encounter Summary ---
Author Organization [facility] Address [address] [place] [address] Phone Care Team Providers Care Beauty Operator Apprentice Name Role Phone Francisco Long MD Primary Care Provider [phone] Neil Ag MD PhD Unavailable [facility] Un[facility] Caron Mohan MD Unavailable Marleni Chiu MA Unavailable [phone] Pebbles Felton MD Unavailable [phone] Mounika Cruz RN Unavailable [phone] Yamileth Meade MA Unavailable [phone] Mariangel Quiñonez MD Primary Care Provide r Encounter Details Date Type Department Care Team (Late st Contact Info) Description 11/13/2017 Orders Only [facility] Provider, MD Annabelle [address] [place] [id number] Social History Tobacco Use Types Packs/Day Years Used Date Smoking Tobacco: Never Alcohol Use Standard Drinks/Week Comments No 0 (1 standard drink = 0.6 oz pur e alcohol) Comments Unknown Sex and Gender Information Value Date Recorded Sex Assigned at Not on file Legal Sex Female 12:21 PM SAND CONDITIONER Gender Identity Not on file Sexual Orientation Not on file documented as of this encounter Plan of Treatment Not on file documented as of this encounter Procedures Procedure Name Priority Date/Time Associated Diagnosis Comments DISCHARGE LABORATORY CUMULATIVE REPORT 11/13/2017 12:00 AM SAND CONDITIONER documented in this encounter Results * DISCHARGE LABORATORY CUMULATIVE REPORT (11/13/2017 12:00 AM SAND CONDITIONER) Narrative 11/13/2017 12:00 AM SAND CONDITIONER Ordered by an unspecified provider. us Historical Provider LAB BLOOD ORDERABLES Humaira l Result documented in this encounter Visit Diagnoses Not on filedocumented in this encounter Additional Health Concerns Infection Onset Date Last Indicated Resolved Time COVID: Suspected 12/28/2020 12/28/2020 12/29/2020 7:21 AM SAND CONDITIONER Respiratory Infection (TITI), contact + droplet Comment:Automatically added due to negative COVID-19 result. 12/29/2020 12/29/2020 01/12/2021 3:0 6 AM SAND CONDITIONER COVID: Suspected 12/07/2021 12/07/2021 12/07/2021 1:26 PM SAND CONDITIONER COVID19 12/07/2021 12/07/2021 12/17/2021 3:05 AM SAND CONDITIONER COVID: Recovered Comment:Added based on recent COVID infection. 12/17/2021 03/02/2022 04/16/2022 3:05 AM C DT COVID: Suspected 12/08/2022 12/08/2022 12/08/2022 11:08 AM SAND CONDITIONER COVID19 12/08/2022 12/08/2022 12/18/2022 3:05 AM SAND CONDITIONER COVID: Recovered Comment:Added based on recent COVID infection. 12/18/2022 02/11/2023 03/18/2023 3:06 AM C DT documented as of this encounter Care Teams Beauty Operator Apprentice Relationship Specialty Start Date End Date Francisco Long MD PCP - General 02/23/17 05/15/22 Mariangel Quiñonez MD [address] [place] [address] [address] [place] [address] PCP - General Family Medicine 05/16/22 Neil Ag MD PhD [address] [facility] [place] [address] Radiation Oncologist Radiation Oncology 12/17/18 [place] [id number] [facility] [address] [place], [place] [id number] Referring Physician General Surgery 12/17/18 [place] [address] [facility] [address] [place], [place] [id number] Medical Oncologist/Sheet Pile Driver Operator Medical Oncology 12/17/18 Marleni Chiu MA [address] [place] [address] [address] [place] [address] ACO Care Crew Team Member 12/04/19 12/04/19 Pebbles Felton MD [address] [place] [address] [address] [place] [address] Consulting Physician Gastroenterology 01/07/20 Mounika Cruz RN [address] [place] [address] [address] [place] [address] Fruit Inspector 11/17/20 11/28/20 Yamileth Meade MA [address] [place] [address] [address] [place] [address] ACO Care Crew Team Member 04/26/21 04/26/21 documented as of this encounter
--- OUTSIDE RECORDS SUMMARY | 2024-11-16 13:13 | XMS_ITS | Encounter Summary ---
Author Organization [facility] Address [address] [facility] [address] [place] [address] Care Team Providers Care Respiratory Therapist Assistant Name Role Phone Francisco Long MD Primary Care Provider [phone] Reason for Visit * Reason Comments Medicare Wellness subsequent Encounter Details Date Type Department Care Team (Late st Contact Info) Description 11/28/2017 10:00 AM QUALITY CONTROL ENGINEERING TECHNICIAN Office Visit [facility] [address] [facility] [address] [place] [address] Francisco Long MD [address] [place] [address] [address] [place] [address] Medicare annual wellness visit, subsequent (Primary Dx); BMI 30.0-30.9,adult; Essential hypertension; Mixed hyperlipidemia; 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 rheumatoid factor ([facility]); Pyuria, sterile; Pre-diabetes Social History Tobacco Use Types Packs/Day Years Used Date Smoking Tobacco: Never Smokeless Tobacco: Never Alcohol Use Standard Drinks/Week Comments No 0 (1 standard drink = 0.6 oz pur e alcohol) Comments Unknown Sex and Gender Information Value Date Recorded Sex Assigned at Not on file Legal Sex Female 12:21 PM QUALITY CONTROL ENGINEERING TECHNICIAN Gender Identity Not on file Sexual Orientation Not on file documented as of this encounter Last Filed Vital Signs Vital Sign Reading Time Taken Comments Blood Pressure 120/70 11/28/2017 10:03 AM QUALITY CONTROL ENGINEERING TECHNICIAN Pulse 64 11/28/2017 10:03 AM QUALITY CONTROL ENGINEERING TECHNICIAN Temperature - - Respiratory Rate 18 11/28/2017 10:03 AM QUALITY CONTROL ENGINEERING TECHNICIAN Oxygen Saturation - - Inhaled Oxygen Concentration - - Weight 87.5 kg (193 lb) 11/28/2017 10:03 AM QUALITY CONTROL ENGINEERING TECHNICIAN Height 170.2 cm (5' 7 ) 11/28/2017 10:03 AM QUALITY CONTROL ENGINEERING TECHNICIAN Body Mass Index 30.23 11/28/2017 10:03 AM QUALITY CONTROL ENGINEERING TECHNICIAN documented in this encounter Progress Notes * Francisco Long MD - 11/28/2017 10:00 AM CST Subjective/Objective Patient ID: Jolene Cedillo is a 71 y.o. female. Chief Complaint Medicare Wellness (subsequent) HPI 71-year-old white female seen today for follow-up well examination she states she feels good no complaints she has history of rheumatoid arthritis and follows up with the sanitation technician on a regular basis fairly quiescent she does have OBGYN that she follows up with as well she sees Ophthalmology on a regular basis no problems activities of daily living her health risk assessment documented electronic medical record she does not smoke does not drink never been a smoker Immunizations the patient refuses all immunizations risk benefits of vaccines were discussed with her but she still refuses all habits tobacco never alcohol none Medical surgical history of rheumatoid arthritis total right knee replacement hypertension hyperlipidemia deep venous thrombosis a bilateral arthroscopic knee surgery cataract surgery left total kneereplacement Family social the patient is 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 her Douglas is a patient here in the practice they both recently went to the converting technician oncologist regarding Osvaldo abnormal protein and he has got undergoing further investigation they have no children her is a mazariegos the been for almost 40 years Review of Systems Review of Systems [...] ideation hematological no bleeding or bruising Vitals: 11/28/17 1003 BP: 120/70 BP Location: Left arm Patient Position: Sitting Pulse: 64 Resp: 18 Weight: 87.5 kg (193 lb) Height: 170.2 cm (5' 7 ) [...] Medicare annual wellness visit, subsequent (Primary) BMI 30.0-30.9,adult Essential hypertension Mixed hyperlipidemia 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 rheumatoid factor (CMS/HCC) Pyuria, sterile Pre-diabetes She looks good rheumatoid arthritis is well controlled she has follow-up with bone density testing every 2 years mammograms yearly she does self-breast examinations monthly she is due for repeat colonoscopy in September 2019 she is encouraged to try statin therapy again due to increased cardiac riskrecommend she does take half a pill Sunday was a Fridays have not tolerated she is to call me will try different statin she will watch the carbs tried exercise little more seems get some weight off of her Side effects, risks, interactions reviewed with patient. Indications for testing discussed. Any further problems to contact us. She was told what to look out for and verbalized understanding. The patient was given the opportunity to have all questions answered today and was in agreement with the plan of care. ITY CONTROL ENGINEERING TECHNICIAN documented in this encounter Plan of Treatment Not on file documented as of this encounter Procedures Procedure Name Priority Date/Time Associated Diagnosis Comments HEPATITIS C SCREENING Routine 05/11/2017 documented in this encounter Results * HEPATITIS C SCREENING (05/11/2017) HEP C Normal Comment:Negative Historical Provider HEALTH MAINTENANCE Final Result documented in this encounter Visit Diagnoses Diagnosis Medicare annual wellness visit, subsequent- Primary BMI 30.0-30.9,adult Essential hypertension Unspecified essential hypertension Mixed hyperlipidemia 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 rheumatoid factor ([facility]) ([facility]) Pyuria, sterile Other nonspecific finding on examination of urine Pre-diabetes Other abnormal glucose documented in this encounter Care Teams Respiratory Therapist Assistant Relationship Specialty Start Date End Date Francisco Long MD PCP - General 02/23/17 05/15/22 documented as of this encounter
--- OUTSIDE RECORDS SUMMARY | 2024-11-16 13:13 | XMS_ITS | Encounter Summary ---
Author Organization [facility] Address [address] [place] [address] Care Team Providers Care Director Of Staff Development Name Role Phone Francisco Long MD Primary Care Provider [phone] Encounter Details Date Type Department Care Team (Late st Contact Info) Description 11/13/2017 2:55 PM SERVICE OPERATIONS MANAGER Lab [address] [address] Benign hypertension Social History Tobacco Use Types Packs/Day Years Used Date Smoking Tobacco: Never Alcohol Use Standard Drinks/Week Comments No 0 (1 standard drink = 0.6 oz pur e alcohol) Comments Unknown Sex and Gender Information Value Date Recorded Sex Assigned at Not on file Legal Sex Female 12:21 PM SERVICE OPERATIONS MANAGER Gender Identity Not on file Sexual Orientation Not on file documented as of this encounter Plan of Treatment Not on file documented as of this encounter Procedures Procedure Name Priority Date/Time Associated Diagnosis Comments EGFR Routine 11/13/2017 8:20 AM SERVICE OPERATIONS MANAGER Benign hypertension DIFFERENTIAL AUTO Routine 11/13/2017 8:2 0 AM SERVICE OPERATIONS MANAGER Benign hypertension LIPID PANEL WITH REFLEX TO DIRECT LDL Routine 11/13/2017 8:20 AM SERVICE OPERATIONS MANAGER Benign hypertension URINALYSIS AND REFLEX TO MICROSCOPIC AND CULTURE Routine 11/13/2017 8:20 AM SERVICE OPERATIONS MANAGER Benign hypertension CBC WITH AUTO DIFFERENTIAL Routine 11/13/2017 8:20 AM SERVICE OPERATIONS MANAGER Benign hypertension URINALYSIS, MICROSCOPIC ONLY Routine 11/13/2017 8:20 AM SERVICE OPERATIONS MANAGER Benign hypertension URINE CULTURE Routine 11/13/2017 8:20 AM SERVICE OPERATIONS MANAGER COMPREHENSIVE METABOLIC PANEL Routine 11/13/2017 8:20 AM SERVICE OPERATIONS MANAGER Benign hypertension documented in this encounter Results * Urine culture (11/13/2017 8:20 AM SERVICE OPERATIONS MANAGER) Report Final Report: Insignifican t growth based on current clinical standards. MEHRAN Comment:Testing performed by : [facility], [address] [place]., [address] Urine 11/13/2017 8:20 AM SERVICE OPERATIONS MANAGER 11/13/2017 5:36 PM SERVICE OPERATIONS MANAGER Narrative MEHRAN - 11/14/2017 10:59 AM SERVICE OPERATIONS MANAGER us Francisco Long MD LAB MICROBIOLOGY - GENERAL ORD ERABLES Final Result [facility] [id number] [address] Department [place] [address] * eGFR (11/13/2017 8:20 AM SERVICE OPERATIONS MANAGER) eGFR 68 mL/min/1.7 3 m2 MEHRAN Comment: Interpretive Data Reference Interval Normal ?>/= 90 mL/min/1.73m2 Mildly decreased* ? 60 - 89 mL/min/1.73m2 Mildly to moderately decreased ?45 - 59 mL/min/1.73m2 Moderately to severely decreased ??30 - 44 mL/min/1.73m2 Severely decreased ?15 - 29 mL/min/1.73m2 Kidney Failure ?< 15 ??mL/min/1.73m2 *Relative to young adult level If -Eritrean multiply value by 1.16. Estimated glomerular filtration [...] was last reviewed 2016. Blood specimen (specimen) 11/13/2017 8:20 AM SERVICE OPERATIONS MANAGER 11/13/2017 3:16 PM SERVICE OPERATIONS MANAGER Narrative MEHRAN - 11/13/2017 3:35 PM SERVICE OPERATIONS MANAGER Francisco Long MD LAB BLOOD ORDERABLES Final Res ult Performing Organization Address [facility] de Phone Number MEHRAN [phone] [address] [place] [address] * (ABNORMAL) Urinalysis, microscopic only (11/13/2017 8:20 AM SERVICE OPERATIONS MANAGER) RBC, ur 2 0 - 3 /HPF CERNER WBC, ur 18(H) 0 - 5 /HPF CERNER Bacteria, ur 0 CERNER Epithelial cells, renal, ur 0 0 - 0 /HPF CERNER Epithelial cells, squamous, ur <1 /LPF CERNER Mucus, ur Present CERNER Urine 11/13/2017 8:20 AM SERVICE OPERATIONS MANAGER 11/13/2017 3:07 PM SERVICE OPERATIONS MANAGER Narrative MEHRAN - 11/13/2017 3:42 PM SERVICE OPERATIONS MANAGER Francisco Long MD LAB URINE ORDERABLES Final Res ult Performing Organization Address [facility] Co de Phone Number MEHRAN [address] [address] Department of [facility] [place] [address] * (ABNORMAL) Differential, auto (11/13/2017 8:20 AM SERVICE OPERATIONS MANAGER) Neutrophil pct 72.1 % CERNER Imm gran pct 0.4 % CERNER CH Lymphocyte pct 14.3 % CERNER CH Monocyte pct 8.1 % CERNER CH Eosinophil pct 0.2 % CERNER CH Basophil pct 0.5 % CERNER CH Neutrophil abs 3.94 1.70 - 6.50 K/cumm CERNER CH Imm gran abs 0.02 0.00 - 0.10 K/cumm CERNER CH Lymphocyte abs 0.78(L) 0.80 - 3.30 K/cumm CERNER CH Monocyte abs 0.44 0.20 - 0.80 K/cumm CERNER CH Eosinophil abs 0.25 0.00 - 0.50 K/cumm CERNER CH Basophil abs 0.03 0.00 - 0.10 K/cumm CERNER CH Blood specimen (specimen) 11/13/2017 8:20 AM SERVICE OPERATIONS MANAGER 11/13/2017 3:07 PM SERVICE OPERATIONS MANAGER Narrative CERNER CH - 11/13/2017 3:20 PM SERVICE OPERATIONS MANAGER Francisco Long MD LAB BLOOD ORDERABLES Final Res ult [facility] [address] [address] Department [place] [address] * (ABNORMAL) Lipid panel with reflex to direct LDL (11/13/2017 8:20 AM SERVICE OPERATIONS MANAGER) Cholesterol 213(H) 100 - 200 mg/dL CERNER CH Comment: Interpretive Data Desirable: ?<200 mg/dL Borderline high: ??200-239 mg/dL High: ? >240 mg/dL Current interpretive data was last revised on 2016. Triglycerides 158(H) 10 - 150 mg/dL CERNER CH Comment: Interpretive Data Desirable: ? < 150 ? mg/dL Borderline High: ? 150 - 199 mg/dL High: ?200 - 499 mg/dL Very High: ? > or = 499 ??mg/dL Current interpretive data was last revised on 2016. HDL 53 40 - 59 mg/dL CERNER CH Comment: Interpretive Data Less than 40 mg/dL - Low; A major risk factor for heart disease. Greater than or equal to 60 mg/dL - High; ??Considered protective of heart disease. Current interpretive data was last revised on 2016. LDL, calculated 128 60 - 129 mg/dL CERNER CH Comment: Interpretive Data Optimal: ? < 100 mg/dL Near Optimal: ?100 - 129 mg/dL Borderline High: ?? 130 - 159 mg/dL High: ?> 160 mg/dL Current interpretive data was last revised on 2016. Chol/HDL ratio 4 mg/dL CERNER CH Blood specimen (specimen) 11/13/2017 8:20 AM SERVICE OPERATIONS MANAGER 11/13/2017 3:07 PM SERVICE OPERATIONS MANAGER Narrative CERNER CH - 11/13/2017 3:35 PM SERVICE OPERATIONS MANAGER us Francisco Long MD LAB BLOOD ORDERABLES Final Res ult [facility] [address] [address] Department [place] [address] * (ABNORMAL) Urinalysis reflex to microscopic and culture (11/13/2017 8:20 AM SERVICE OPERATIONS MANAGER) Color, ur Yellow CERNER CH Clarity, ur Clear CERNER CH Specific gravity, ur 1.016 1.001 - 1.033 CERNER CH pH, ur 6.0 5.0 - 8.0 CERNER CH Protein, ur ql Negative Negative CERNER CH Glucose, ur ql Negative Negative CERNER CH Ketones, ur Negative Negative CERNER CH Bilirubin, ur Negative Negative CERNER CH Blood, ur Negative Negative CERNER CH Urobilinogen, ur <2.0 <2.0 CERNER CH Nitrites, ur Negative Negative CERNER CH Leukocyte esterase, ur 4+(A) Negative CERNER CH Urine 11/13/2017 8:20 AM SERVICE OPERATIONS MANAGER 11/13/2017 3:07 PM SERVICE OPERATIONS MANAGER Narrative CERNER CH - 11/13/2017 3:34 PM SERVICE OPERATIONS MANAGER Francisco Long MD LAB MICROBIOLOGY - GENERAL ORD ERABLES Final Result [facility] [id number] [address] Department [place] [address] * (ABNORMAL) CBC with auto differential (11/13/2017 8:20 AM SERVICE OPERATIONS MANAGER) WBC 5.46 3.80 - 9.90 K/cumm [facility] RBC 4.66 3.90 - 5.20 M/cumm [facility] Hgb 12.6 11.9 - 15.5 g/dL [facility] Hct 41.3 35.6 - 45.5 % [facility] MCV 88.6 81.3 - 96.4 fL [facility] MCH 27.0(L) 27.1 - 33.3 pg [facility] MCHC 30.5(L) 32.3 - 35.7 g/dL [facility] RDW CV 16.9(H) 11.1 - 14.9 % [facility] RDW SD 53.5(H) 35.7 - 48.1 fL [facility] Plt 220 150 - 400 K/cumm [facility] MPV 10.7 9.1 - 12.3 fL [facility] NRBC 0.0 0.0 - 0.2 % [facility] NRBC abs 0.00 0.00 - 0.01 K/cumm [facility] Blood specimen (specimen) 11/13/2017 8:20 AM SERVICE OPERATIONS MANAGER 11/13/2017 3:07 PM SERVICE OPERATIONS MANAGER Narrative [facility] - 11/13/2017 3:20 PM SERVICE OPERATIONS MANAGER Francisco Long MD LAB BLOOD ORDERABLES Final Res ult [facility] [id number] [address] Department [place] [address] * Comprehensive metabolic panel (11/13/2017 8:20 AM SERVICE OPERATIONS MANAGER) Sodium 139 135 - 145 mmol/L [facility] Potassium, pl 3.9 3.5 - 5.1 mmol/L CERNER CH CO2 29 22 - 32 mmol/L C[facility] CH BUN 13 8 - 24 mg/dL C[facility] CH Glucose 139 70 - 199 mg/dL CERNER CH Comment: Interpretive Data Fasting glucose >/= 126 [...] Current interpretive data was last revised 2017. Creatinine 0.86 0.60 - 1.30 mg/dL CERNER CH Calcium 9.0 8.4 - 10.5 mg/dL CERNER CH Chloride 101 100 - 114 mmol/L CERNER CH Albumin 3.7 3.2 - 4.8 g/dL CERNER CH AST 24 7 - 40 Units/L CERNER CH ALT 29 1 - 45 Units/L CERNER CH Alk phos 57 30 - 110 Units/L [facility] CH Bilirubin, total 0.40 0.10 - 1.30 mg/dL CERN[facility] CH Protein, pl 6.1 6.0 - 8.3 g/dL C[facility] CH Anion gap 13 8 - 16 mmol/L C[facility] CH Blood specimen (specimen) 11/13/2017 8:20 AM SERVICE OPERATIONS MANAGER 11/13/2017 3:07 PM SERVICE OPERATIONS MANAGER Narrative [facility] - 11/13/2017 3:35 PM SERVICE OPERATIONS MANAGER Francisco Long MD LAB BLOOD ORDERABLES Final Res ult [facility]AN [id number] [address] [place] [address] documented in this encounter Visit Diagnoses Diagnosis Benign hypertension Essential hypertension, benign documented in this encounter Care Teams Director Of Staff Development Relationship Specialty Start Date End Date Francisco Long MD PCP - General 3/31/17 6/20/22 documented as of this encounter
--- OUTSIDE RECORDS SUMMARY | 2024-11-16 13:13 | XMS_ITS | Encounter Summary ---
Author Organization [facility] Address [address] [place] [address] Care Team Providers Care Peoplesoft Name Role Phone Francisco Long MD Primary Care Provider [phone] Encounter Details Date Type Department Care Team (Late st Contact Info) Description 11/12/2017 Telephone [facility] 2 [facility] [address] [place] [address] Francisco Long MD 2 [facility] [address] [place] [address] Social History Tobacco Use Types Packs/Day Years Used Date Smoking Tobacco: Never Alcohol Use Standard Drinks/Week Comments No 0 (1 standard drink = 0.6 oz pur e alcohol) Comments Unknown Sex and Gender Information Value Date Recorded Sex Assigned at Not on file Legal Sex Female 12:21 PM CLIENT RENEWAL SPECIALIST Gender Identity Not on file Sexual Orientation Not on file documented as of this encounter Miscellaneous Notes * Telephone Encounter - Rivka Valdez MA - 11/12/2017 1:39 PM CST Schedule not yet open for 12-01-17 or 12-08-17 NT RENEWAL SPECIALIST * Telephone Encounter - Francisco Long MD - 11/12/2017 8:13 AM CST Patient is scheduled for physical November 27 I am out of the office that morning see if she would be willing to come in SundayDecember 01 or December 08 for physical NT RENEWAL SPECIALIST documented in this encounter Plan of Treatment Not on file documented as of this encounter Visit Diagnoses Not on filedocumented in this encounter Care Teams Peoplesoft Relationship Specialty Start Date End Date Francisco Long MD PCP - General 02/23/17 05/15/22 documented as of this encounter
--- OUTSIDE RECORDS SUMMARY | 2024-11-16 13:13 | XMS_ITS | Encounter Summary ---
Author Organization [facility] Address [address] [place] [address] Care Team Providers Care [id number] Tank Driver Name Role Phone Francisco Long MD Primary Care Provider [phone] Encounter Details Date Type Department Care Team (Late st Contact Info) Description 04/12/2018 Telephone [facility] [address] [facility] [address] [place] [address] Larry Wetzel PA 2 [facility] [address] [place] [address] Social History Tobacco Use Types Packs/Day Years Used Date Smoking Tobacco: Never Smokeless Tobacco: Never Alcohol Use Standard Drinks/Week Comments No 0 (1 standard drink = 0.6 oz pur e alcohol) Comments Unknown Sex and Gender Information Value Date Recorded Sex Assigned at Not on file Legal Sex Female 12:21 PM HEALTH PRACTICE MANAGER Gender Identity Not on file Sexual Orientation Not on file documented as of this encounter Miscellaneous Notes * Telephone Encounter - Thalia Wolff CLT - 04/12/2018 4:43 PM CDT noted * Telephone Encounter - Rivka Valdez MA - 04/12/2018 4:39 PM CDT lab * Telephone Encounter - Larry Wetzel PA - 04/12/2018 4:14 PM CDT Ok to cancel * Telephone Encounter - Katie Apple - 04/12/2018 4:00 PM CDT Pt calling back. States she didn't realize she had a ua ordered. She no longer has urinary frequency. Ok to cancel ua order? * Telephone Encounter - Thalia Wolff CLT - 04/12/2018 3:55 PM CDT lmom: follow-up on overdue lab Pt was here 03-04-18 and larry ordered a ua; specimen has not been collected. documented in this encounter Plan of Treatment Not on file documented as of this encounter Visit Diagnoses Not on filedocumented in this encounter Care Teams [id number] Tank Driver Relationship Specialty Start Date End Date Francisco Long MD PCP - General 02/23/17 05/15/22 documented as of this encounter
--- OUTSIDE RECORDS SUMMARY | 2024-11-16 13:13 | XMS_ITS | Encounter Summary ---
Author Organization [facility] Healthcare Address [address] [place] [address] Care Team Providers Care Induction Heat Treater Name Role Phone Francisco Long MD Primary Care Provider [phone] Encounter Details Date Type Department Care Team (Late st Contact Info) Description 2017 8:50 PM RHEOLOGIST Lab [address] [address] Pyuria Social History Tobacco Use Types Packs/Day Years Used Date Smoking Tobacco: Never Smokeless Tobacco: Never Alcohol Use Standard Drinks/Week Comments No 0 (1 standard drink = 0.6 oz pur e alcohol) Comments Unknown Sex and Gender Information Value Date Recorded Sex Assigned at Not on file Legal Sex Female 12:21 PM RHEOLOGIST Gender Identity Not on file Sexual Orientation Not on file documented as of this encounter Plan of Treatment Not on file documented as of this encounter Procedures Procedure Name Priority Date/Time Associated Diagnosis Comments URINALYSIS AND REFLEX TO MICROSCOPIC AND CULTURE Routine 2017 12:52 PM RHEOLOGIST Pyuria documented in this encounter Results * Urinalysis reflex to microscopic and culture (2017 12:52 PM RHEOLOGIST) Color, ur Yellow [facility] Clarity, ur Clear [facility] Specific gravity, ur 1.019 1.001 - 1.033 [facility] pH, ur 5.0 5.0 - 8.0 [facility] Protein, ur ql Negative Negative [facility] Glucose, ur ql Negative Negative [facility] Ketones, ur Negative Negative [facility] Bilirubin, ur Negative Negative [facility] Blood, ur Negative Negative [facility] Urobilinogen, ur <2.0 <2.0 [facility] Nitrites, ur Negative Negative [facility] Leukocyte esterase, ur Negative Negative [facility] Urine 2017 12:5 2 PM RHEOLOGIST 2017 8:53 PM RHEOLOGIST Narrative [facility] - 2017 9:13 PM RHEOLOGIST Francisco Long MD LAB MICROBIOLOGY - GENERAL ORD ERABLES Final Result [facility] [address] [place] [address] documented in this encounter Visit Diagnoses Diagnosis Pyuria Other nonspecific finding on examination of urine documented in this encounter Care Teams Induction Heat Treater Relationship Specialty Start Date End Date Francisco Long MD PCP - General 02/23/17 05/15/22 documented as of this encounter
--- OUTSIDE RECORDS SUMMARY | 2024-11-16 13:13 | XMS_ITS | Encounter Summary ---
Author Organization [facility] Healthcare Address [address] [place] [address] Care Team Providers Care Hourly Manager Name Role Phone Francisco Long MD Primary Care Provider Reason for Referral * Diagnostic Imaging (Routine) - Closed Specialty Diagnoses / Procedures Referred By Halima garcia Referred To Contact Diagnoses Murmur, heart Procedures Transthoracic Echo Complete W Doppler/CF Larry Wetzel PA Phone: tel: fax: [address] [phone] Referral ID Status Reason Start Date Expiration Date Visits Re quested Visits Authorized [id number] Closed 03/04/2018 08/31/2018 1 1 Reason for Visit * Diagnostic Imaging (Routine) - Closed Specialty Diagnoses / Procedures Referred By Halima garcia Referred To Contact Diagnoses Murmur, heart Procedures Transthoracic Echo Complete W Doppler/CF Larry Wetzel PA Phone: tel: fax: [address] [phone] Referral ID Status Reason Start Date Expiration Date Visits Re quested Visits Authorized [id number] Closed 03/04/2018 08/31/2018 1 1 Encounter Details Date Type Department Care Team (Latest Contact Info) Description 03/19/2018 10:12 AM CDT - 03/19/2018 12:28 PM CDT Hospital Encounter [facility] Cardiology [address] [place] [address] Larry Wetzel PA [address] [place] [address] Francisco Long MD [address] [place] [address] Murmur, heart Discharge Disposition: Discharge to home or self care Social History Tobacco Use Types Packs/Day Years Used Date Smoking Tobacco: Never Smokeless Tobacco: Never Alcohol Use Standard Drinks/Week Comments No 0 (1 standard drink = 0.6 oz pur e alcohol) Comments Unknown Sex and Gender Information Value Date Recorded Sex Assigned at Not on file 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 Gender Identity Not on file Sexual Orientation Not on file documented as of this encounter Last Filed Vital Signs Vital Sign Reading Time Taken Comments Blood Pressure - - Pulse - - Temperature - - Respiratory Rate - - Oxygen Saturation - - Inhaled Oxygen Concentration - - Weight 86.6 kg (191 lb) 03/19/2018 10:13 AM CDT Height 170.2 cm (5' 7 ) 03/19/2018 10:13 AM CDT Body Mass Index 29.91 03/19/2018 10:13 AM CDT documented in this encounter Medications [...] ECHO (TTE) COMPLETE W DOPPLER/CF WO CONTRAST Routine 03/19/2018 11:03 AM CDT Murmur, heart documented in this encounter Results * TRANSTHORACIC ECHO (TTE) COMPLETE W DOPPLER/CF WO CONTRAST (03/19/2018 11:03 AM CDT) Anatomical Region Laterality Modality Ultrasound 03/19/2018 10:3 6 AM CDT Narrative 03/19/2018 6:40 PM CDT [address] [place] [address] Echocardiogram Report Patient Name: JOLENE GORDON G : 1945 Study Date: 03/19/2018 10:36:34 Gender: F Tech: HOSE MENDER Location: Echo lab 2 Ref.Physician: LARRY WETZEL Height(Cm): 170 BSA: 2.02 Weight(Kg): 86.6 Quality: Technically Difficult Study Order Physician: Ethan Procedures: Echocardiographic Report: Transthoracic echocardiogram with complete 2D, M-Mode, and color Doppler examination. Indications: Murmur. Measurements: 2D/M Mode ?Doppler ? Measurement ?Value ?Normal Range ? Measurement ?Value ?Normal Range ? EF Teich MM ?79.8 ? [ 55.0 - 70.0 ] percent ?ANTHONY Vmax ? 2.10 ? [ 2.00 - 4.00 ] cm2 ? LVIDd MM ? 3.46 ? [ 3.90 - 5.30 ] cm ? AV Mean PG ? 5 ?[ 2 - 4 ] mmHg ? LVIDs MM ? 1.82 ? [ 2.30 - 3.90 ] cm ? AV Peak Emmanuel ?1.59 ? [ 1.00 - 1.70 ] m/s ? LVPWd MM ? 1.21 ? [ 0.60 - 1.00 ] cm ? AV VTI ? 35.97 ?cm ? IVSd MM ?1.18 ? [ 0.60 - 0.90 ] cm ? LVOT Diam ?1.76 ? [ 1.70 - 2.10 ] cm ? LA Dimension MM ?2.76 ? [ 2.70 - 3.80 ] cm ? LVOT Peak Emmanuel ?1.36 ? [ 0.70 - 1.10 ] m/s ? AoR Diam MM ?2.58 ? [ 2.60 - 3.70 ] cm ? LVOT VTI ? 32.80 ?[ 20.00 - 30.00 ] cm ? ACS MM ? 1.29 ? cm ? MV E Peak Emmanuel ?0.82 ? [ 0.60 - 1.30 ] m/s ? MV A Peak Emmanuel ?0.76 ? [ 1.00 - 1.20 ] m/s ? MV PHT ? 60 ? [ 20 - 100 ] msec ? MV Decel Time ?164 ?[ 104 - 258 ] msec ? PV Peak Emmanuel ?1.19 ? [ 0.40 - 0.80 ] m/s ? TR Peak Emmanuel ?2.75 ? [ 1.00 - 2.80 ] m/s ? TR Peak PG ? 30 ? mmHg ? Findings: Atrial Septum: Normal atrial septum. Left Ventricle: Moderate concentric left ventricular hypertrophy. Hyperdynamic left ventricular function. No focal wall motion abnormalities. Ejection fraction is visually estimated at 70 to 75 %. Left Atrium: The left atrium is normal in size. Right Ventricle: Normal right ventricular size. Right Atrium: The right atrium is normal in size. Aortic Valve: Aortic cusps appear mildly sclerotic. Mitral Valve: Mild mitral annular calcification. Trivial regurgitation of the mitral valve. Pulmonic Valve: Normal structure of the pulmonic valve. Tricuspid Valve: Normal structure of the tricuspid valve. Trivial regurgitation in the tricuspid valve. Pericardium: Normal pericardium with no significant pericardial effusion. Aorta: Normal aortic root. IVC: The IVC is not well visualized. Conclusions: Moderate concentric left ventricular hypertrophy. Hyperdynamic left ventricular function. No focal wall motion abnormalities. Ejection fraction is visually estimated at 70 to 75 %. Mild mitral annular calcification. Trivial regurgitation of the mitral valve. Aortic cusps appear mildly sclerotic. Normal structure of the tricuspid valve. Trivial regurgitation in the tricuspid valve. Electronically Signed By: Dr Mitchell Valle 2018-03-19 18:40:52 CDT CC: CC: Procedure Note Mitchell Valle MD - 03/19/[address] [place] [address] Echocardiogram Report Patient Name: JOLENE GORDON GPatient ID: [id number] : [id number] Date: 03/19/2018 10:36:34 Gender: FAccession #: [id number] Tech: NPLocation: Echo lab 2 Ref.Physician: Cora WETZELight(Cm): 170 BSA: 2.02Weight(Kg): 86.6 Quality: Technically Difficult StudyOrder Physician: Ethan Procedures: Echocardiographic Report: Transthoracic echocardiogram with complete 2D, M-Mode, and color Dopplerexamination. Indications: Murmur. Measurements: 2D/M Mode Doppler Measurement Value Normal Range MeasurementValue Normal Range EF Teich MM 79.8 [ 55.0 - 70.0 ] percent ANTHONY Vmax2.10 [ 2.00 - 4.00 ] cm2 LVIDd MM 3.46 [ 3.90 - 5.30 ] cm AV Mean PG 5[ 2 - 4 ] mmHg LVIDs MM 1.82 [ 2.30 - 3.90 ] cm AV Peak Vel1.59 [ 1.00 - 1.70 ] m/s LVPWd MM 1.21 [ 0.60 - 1.00 ] cm AV VTI35.97 cm IVSd MM 1.18 [ 0.60 - 0.90 ] cm LVOT Diam1.76 [ 1.70 - 2.10 ] cm LA Dimension MM 2.76 [ 2.70 - 3.80 ] cm LVOT Peak Vel1.36 [ 0.70 - 1.10 ] m/s AoR Diam MM 2.58 [ 2.60 - 3.70 ] cm LVOT VTI32.80 [ 20.00 - 30.00 ] cm ACS MM 1.29 cm MV E Peak Vel0.82 [ 0.60 - 1.30 ] m/s MV A Peak Vel0.76 [ 1.00 - 1.20 ] m/s MV PHT 60[ 20 - 100 ] msec MV Decel [id number] [ 104 - 258 ] msec PV Peak Vel1.19 [ 0.40 - 0.80 ] m/s TR Peak Vel2.75 [ 1.00 - 2.80 ] m/s TR Peak PG 30mmHg Findings: Atrial Septum: Normal atrial septum. Left Ventricle: Moderate concentric left ventricular hypertrophy. Hyperdynamic leftventricular function. No focal wall motion abnormalities. Ejection fraction is visuallyestimated at 70 to 75 %. Left Atrium: The left atrium is normal in size. Right Ventricle: Normal right ventricular size. Right Atrium: The right atrium is normal in size. Aortic Valve: Aortic cusps appear mildly sclerotic. Mitral Valve: Mild mitral annular calcification. Trivial regurgitation of the mitralvalve. Pulmonic Valve: Normal structure of the pulmonic valve. Tricuspid Valve: Normal structure of the tricuspid valve. Trivial regurgitation in thetricuspid valve. Pericardium: Normal pericardium with no significant pericardial effusion. Aorta: Normal aortic root. IVC: The IVC is not well visualized. Conclusions: Moderate concentric left ventricular hypertrophy. Hyperdynamic leftventricular function. No focal wall motion abnormalities. Ejection fraction is visuallyestimated at 70 to 75 %. Mild mitral annular calcification. Trivial regurgitation of the mitralvalve. Aortic cusps appear mildly sclerotic. Normal structure of the tricuspid valve. Trivial regurgitation in thetricuspid valve. Electronically Signed By: Dr Mitchell Valle 2018-03-19 18:40:52 CDT CC: CC: us Larry [facility] CV ECHO PROCEDURES [facility] l Result documented in this encounter Visit Diagnoses Diagnosis Murmur, heart Undiagnosed cardiac murmurs documented in this encounter Care Teams Hourly Manager Relationship Specialty Start Date End Date Francisco Long MD PCP - General 02/23/17 05/15/22 documented as of this encounter
--- OUTSIDE RECORDS SUMMARY | 2024-11-16 13:13 | XMS_ITS | Encounter Summary ---
Author Organization [facility] Address [address] [place] [address] Care Team Providers Care Psychology Professor Name Role Phone Francisco Long MD Primary Care Provider [phone] Encounter Details Date Type Department Care Team (Late st Contact Info) Description 03/20/2018 Telephone [place] [facility] 2 [facility] [address] [place] [address] Francisco Long MD 2 [facility] [address] [place] [address] Social History Tobacco Use Types Packs/Day Years Used Date Smoking Tobacco: Never Smokeless Tobacco: Never Alcohol Use Standard Drinks/Week Comments No 0 (1 standard drink = 0.6 oz pur e alcohol) Comments Unknown Sex and Gender Information Value Date Recorded Sex Assigned at Not on file 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 * Telephone Encounter - Janna Gonsales - 03/20/2018 12:48 PM CDT ----- Message from ESEQUIEL Tomlinson sent at 03/20/2018 12:07 PM CDT ----- Please inform patient that the ECHO of her heart was overall ok, no significant valve disease. documented in this encounter Plan of Treatment Not on file documented as of this encounter Visit Diagnoses Not on filedocumented in this encounter Care Teams Psychology Professor Relationship Specialty Start Date End Date Francisco Long MD PCP - General 02/23/17 05/15/22 documented as of this encounter
--- OUTSIDE RECORDS SUMMARY | 2024-11-16 13:13 | XMS_ITS | Encounter Summary ---
Author Organization [facility] Address [address] [place] [address] Care Team Providers Care Shirt Sorter Name Role Phone Francisco Long MD Primary Care Provider [phone] Encounter Details Date Type Department Care Team (Late st Contact Info) Description 11/13/2017 8:15 AM TIE CARRIER Lab [place] [facility] 2 [facility] [address] [place] [id number] Benign hypertension Social History Tobacco Use Types Packs/Day Years Used Date Smoking Tobacco: Never Alcohol Use Standard Drinks/Week Comments No 0 (1 standard drink = 0.6 oz pur e alcohol) Comments Unknown Sex and Gender Information Value Date Recorded Sex Assigned at Not on file 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
--- OUTSIDE RECORDS SUMMARY | 2024-11-16 13:13 | XMS_ITS | Encounter Summary ---
Author Organization [facility] Healthcare Address [address] [place] [address] Care Team Providers Care Companion Name Role Phone Francisco Long MD Primary Care Provider [phone] Reason for Referral * Diagnostic Imaging (Routine) - Closed Specialty Diagnoses / Procedures Referred By Halima garcia Referred To Contact Diagnoses Acute right-sided thoracic back pain Procedures US Kidney Complete Larry Wetzel PA Phone: tel: fax: [address] [phone] Referral ID Status Reason Start Date Expiration Date Visits Re quested Visits Authorized [id number] Closed 03/04/2018 08/31/2018 1 1 Reason for Visit * Diagnostic Imaging (Routine) - Closed Specialty Diagnoses / Procedures Referred By Halima garcia Referred To Contact Diagnoses Acute right-sided thoracic back pain Procedures US Kidney Complete Larry Wetzel PA Phone: tel: fax: [address] [phone] Referral ID Status Reason Start Date Expiration Date Visits Re quested Visits Authorized [id number] Closed 03/04/2018 08/31/2018 1 1 Encounter Details Date Type Department Care Team (Latest Contact Info) Description 03/19/2018 12:29 PM CDT - 03/19/2018 11:59 PM CDT Hospital Encounter [facility] 1 [facility] [place] [address] Larry Wetzel PA 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 Focal bulge of the left kidney most consistent with a dromedary hump. 2. ??Normal appearance of the right kidney. Electronically signed by: Alfonso Dickens M.D. Narrative 03/19/2018 1:07 PM CDT EXAM: US KIDNEY COMPLETE HISTORY: Right-sided flank pain COMPARISON: None TECHNIQUE: A renal ultrasound was performed. FINDINGS: The right kidney measures 11.5 x 4.5 x 4.2 cm. ??The left kidney measures 10.9 x 5.0 x 4.4 cm. The left kidney appears to demonstrate a dromedary hump. ??No suspicious parenchymal lesions or cysts are otherwise noted. No hydronephrosis is seen. ??No echogenic foci are noted to indicate nephroliths. The urinary bladder is within normal limits. Procedure Note Alfonso Dickens MD - 03/19/2018 EXAM: US KIDNEY COMPLETE HISTORY: Right-sided flank pain COMPARISON: None TECHNIQUE: A renal ultrasound was performed. FINDINGS: The right kidney measures 11.5 x 4.5 x 4.2 cm. The left kidney measures 10.9 x 5.0 x 4.4 cm. The left kidney appears to demonstrate a dromedary hump. No suspicious parenchymal lesions or cysts are otherwise noted. No hydronephrosis is seen. No echogenic foci are noted to indicate nephroliths. The urinary bladder is within normal limits. IMPRESSION: 1. Focal bulge of the left kidney most consistent with a dromedary hump. 2. Normal appearance of the right kidney. Electronically signed by: Alfonso Dickens M.D. Larry [facility] US PROCEDURES Final Result documented in this encounter Visit Diagnoses Diagnosis Acute right-sided thoracic back pain documented in this encounter Care Teams Companion Relationship Specialty Start Date End Date Francisco Long MD PCP - General 02/23/17 05/15/22 documented as of this encounter
--- OUTSIDE RECORDS SUMMARY | 2024-11-16 13:13 | XMS_ITS | Encounter Summary ---
Author Organization [facility] Address [address] [place] [address] Care Team Providers Care Microfilm Equipment Inspector Name Role Phone Francisco Long MD Primary Care Provider [phone] Encounter Details Date Type Department Care Team (Late st Contact Info) Description 03/19/2018 Telephone [place] [facility] 2 [facility] [address] [place] [address] Francisco Long MD 2 [facility] [address] [place] [address] Social History Tobacco Use Types Packs/Day Years Used Date Smoking Tobacco: Never Smokeless Tobacco: Never Alcohol Use Standard Drinks/Week Comments No 0 (1 standard drink = 0.6 oz pur e alcohol) Comments Unknown Sex and Gender Information Value Date Recorded Sex Assigned at Not on file 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 * Telephone Encounter - aJnna Gonsales - 03/19/2018 3:15 PM CDT ----- Message from ESEQUIEL Tomlinson sent at 03/19/2018 2:52 PM CDT ----- Please inform patient that her kidney ultrasound was overall negative. She has an extra fatty hump on her left kidney but that is benign and nothing to do with her discomfort. documented in this encounter Plan of Treatment Not on file documented as of this encounter Visit Diagnoses Not on filedocumented in this encounter Care Teams Microfilm Equipment Inspector Relationship Specialty Start Date End Date Francisco Long MD PCP - General 02/23/17 05/15/22 documented as of this encounter
--- OUTSIDE RECORDS SUMMARY | 2024-11-16 13:13 | XMS_ITS | Encounter Summary ---
Author Organization [facility] Medical [facility] Address [address] [address] Care Team Providers Care Evaluation Advisor Name Role Phone Francisco Long MD Primary Care Provider [phone] Reason for Referral * Diagnostic Imaging (Routine) - Closed Specialty Diagnoses / Procedures Referred By Halima garcia Referred To Contact Diagnoses Acute right-sided thoracic back pain Procedures US Kidney Complete Larry Kruger PA Phone: tel: fax: [address] [phone] Referral ID Status Reason Start Date Expiration Date Visits Re quested Visits Authorized [id number] Closed 03/04/2018 08/31/2018 1 1 * Diagnostic Imaging (Routine) - Closed Specialty Diagnoses / Procedures Referred By Halima garcia Referred To Contact Diagnoses Murmur, heart Procedures Transthoracic Echo Complete W Doppler/CF Larry Kruger PA Phone: tel: fax: [address] [phone] Referral ID Status Reason Start Date Expiration Date Visits Re quested Visits Authorized [id number] Closed 03/04/2018 08/31/2018 1 1 Reason for Visit * Reason Comments Back Pain Encounter Details Date Type Department Care Team (Late st Contact Info) Description 03/04/2018 10:00 AM CDT Office Visit [facility] 2 [facility] [address] [place] [address] Larry Kruger PA 2 [facility] [address] [place] [address] Acute right-sided thoracic back pain (Primary Dx); BMI 29.0-29.9,adult; Murmur, heart; Urinary frequency Social History Tobacco Use Types Packs/Day Years Used Date Smoking Tobacco: Never Smokeless Tobacco: Never Alcohol Use Standard Drinks/Week Comments No 0 (1 standard drink = 0.6 oz pur e alcohol) Comments Unknown Sex and Gender Information Value Date Recorded Sex Assigned at Not on file 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 Gender Identity Not on file Sexual Orientation Not on file documented as of this encounter Last Filed Vital Signs Vital Sign Reading Time Taken Comments Blood Pressure 130/76 03/04/2018 9:52 AM CDT Pulse 84 03/04/2018 9:52 AM CDT Temperature 36.6 ??C (97.8 ??F) 03/04/2018 9:52 AM CD T Respiratory Rate 16 03/04/2018 9:52 AM CDT Oxygen Saturation - - Inhaled Oxygen Concentration - - Weight 86.6 kg (191 lb) 03/04/2018 9:52 AM CDT Height - - Body Mass Index 29.91 11/28/2017 10:03 AM PARKING RAMP ATTENDANT documented in this encounter Progress Notes * Larry Kruger PA - 03/04/2018 10:00 AM CDT Subjective/Objective Patient ID: Jolene Gordon is a 72 y.o. female. Chief Complaint Back Pain HPI Pt has been having intermittent r sided back discomfor for the past few weeks. No certain positionsmake it better or worse. Occ nocturnal pain. Occ sharp, occ achy. It just comes in at random. For example, she was sitting on the exam table talking to me when it came on and was in the same focal area R mid back, was not severe. Lasted a minute or two , then left. She also notes fatigue. No other sx. Review of Systems Constitutional: Positive for fatigue. Negative for chills and fever. Respiratory: Negative for cough and shortness of breath. Cardiovascular: Negative for chest pain. Gastrointestinal: Negative for abdominal pain, blood in stool, constipation, diarrhea and vomiting. Genitourinary: Negative for difficulty urinating, dysuria, frequency, hematuria and urgency. Musculoskeletal: Positive for back pain (see HPI). Skin: Negative for rash. Vitals: 03/04/18 0952 BP: 130/76 Pulse: 84 Resp: 16 Temp: 36.6 ??C (97.8 ??F) TempSrc: Oral Weight: 86.6 kg (191 lb) Physical Exam Constitutional: She appears well-developed and well-nourished. No distress. Neck: Normal range of motion. Neck supple. No thyromegaly present. Cardiovascular: Normal rate and regular rhythm. Murmur (high pitched 2/6 RUSB, new for her) heard. Pulmonary/Chest: Effort normal and breath sounds normal. No respiratory distress. She has no wheezes. She has no rales. Abdominal: Tenderness: no CVA tenderness. Musculoskeletal: She exhibits no tenderness (ROM does not affect pain). Lymphadenopathy: She has no cervical adenopathy. Skin: No rash noted. Assessment/Plan Diagnoses and all orders for this visit: Acute right-sided thoracic back pain (Primary) Comments: Obtain renal US and check UA. Orders: - US Kidney Complete; Future - Urinalysis reflex to microscopic; Future BMI 29.0-29.9,adult Murmur, heart Comments: obtain ECHO. No current sx x fatigue Orders: - Transthoracic Echo Complete W Doppler/CF; Future Urinary frequency - Urine culture Urine, bladder; Future Side effects, risks, interactions reviewed with patient. Indications for testing discussed. Any further problems to contact us. She was told what to look out for and verbalized understanding. The patient was given the opportunity to have all questions answered today and was in agreement with the plan of care. Cosigned by Francisco Long MD at 03/04/2018 12:47 PM CDT documented in this encounter Plan of Treatment Not on file documented as of this encounter Results * US Kidney Complete [...] signed by: Alfonso Dickens M.D. Larry IRAHETA G US PROCEDURES Final Result * TRANSTHORACIC ECHO (TTE) COMPLETE W DOPPLER/CF WO CONTRAST (03/19/2018 11:03 AM CDT) Anatomical Region Laterality Modality Ultrasound 03/19/2018 10:3 6 AM CDT Narrative 03/19/2018 6:40 PM CDT [address] [place] [address] Echocardiogram Report Patient Name: JOLENE GORDON G : 1945 Study Date: 03/19/2018 10:36:34 Gender: F Tech: MECHANICAL SERVICE REPRESENTATIVE Location: Echo lab 2 Ref.Physician: LARRY KRUGER Height(Cm): 170 BSA: 2.02 Weight(Kg): 86.6 Quality: [...] Procedure Note Mitchell Valle MD - 03/19/[address] [address] Echocardiogram Report Patient Name: JOLENE GORDON GPatient ID: [id number] : [id number] Date: 03/19/2018 10:36:34 Gender: FAccession #: [id number] Tech: NPLocation: Echo lab 2 Ref.Physician: Ally KRUGER(Cm): 170 BSA: 2.02Weight(Kg): 86.6 Quality: Technically Difficult [...] 20 - 100 ] msec MV Decel [id number] [ 104 - 258 ] msec PV [...] Visit Diagnoses Diagnosis Acute right-sided thoracic back pain- Primary BMI 29.0-29.9,adult Murmur, heart Undiagnosed cardiac murmurs Urinary frequency Murmur, heart Undiagnosed cardiac murmurs Acute right-sided thoracic back pain documented in this encounter Discontinued Medications Medication Sig Discontinue Reason Start Date End Da te losartan-hydroCHLOROthia zide (HYZAAR) 100-12.5 mg per tablet TAKE 1 TABLET BY MOUTH EVERY DAY Duplicate order 12/31/2017 03/04/2018 methotrexate (TREXALL) 5 mg tablet take 2 tablet by oral route every week 05/03/2015 03/04/2018 folic acid (FOLVITE) 1 mg tablet take 1 tablet by oral route every day 05/03/2015 03/04/2018 atorvastatin (LIPITOR) 10 mg tablet TAKE 1 TABLET(10 MG) BY MOUTH DAILY 05/25/2017 03/04/2018 documented as of this encounter Historical Medications * This list may reflect changes made after this encounter. methotrexate sodium 2.5 mg tablets,dose pack Take 15 mg by mouth once a week. 01/07/2016 12/17/2018 added in this encounter Care Teams Evaluation Advisor Relationship Specialty Start Date End Date Francisco Long MD PCP - General 02/23/17 05/15/22 documented as of this encounter
--- OUTSIDE RECORDS SUMMARY | 2024-11-16 13:13 | XMS_ITS | Encounter Summary ---
Author Organization [facility] Healthcare Address [address] [place] [address] Care Team Providers Care Station Mechanic Helper Name Role Phone Inez Long MD Primary Care Provider Encounter Details Date Type Department Care Team (Late st Contact Info) Description 05/25/2017 10:02 AM CDT - 05/25/2017 11:59 PM CDT Hospital Encounter [facility] Inez Long MD [address] [place] [id number] Discharge Disposition: Discharge to home or self care Social History Tobacco Use Types Packs/Day Years Used Date Smoking Tobacco: Never Alcohol Use Standard Drinks/Week Comments No 0 (1 standard drink = 0.6 oz pur e alcohol) Comments Unknown Sex and Gender Information Value Date Recorded Sex Assigned at Not on file 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 Gender Identity Not on file Sexual Orientation Not on file documented as of this encounter Medications at Time of Discharge atorvastatin (LIPITOR) 10 mg tablet TAKE 1 TABLET(10 MG) BY MOUTH DAILY 90 tablet 11 05/25/2017 03/04/2018 ferrous sulfate 325 mg (65 mg of elemental iron) tablet take 1 tablet by ORAL route 2 times every day 60 12 02/25/2016 09/14/2018 folic acid (FOLVITE) 1 mg tablet take 1 tablet by oral route every day 0 0 05/03/2015 03/04/2018 losartan-hydroCHL OROthiazide (HYZAAR) 100-12.5 mg per tablet TAKE 1 TABLET BY ORAL ROUTE EVERY DAY 90 3 01/28/2013 10/02/2017 methotrexate (TREXALL) 5 mg tablet take 2 tablet by oral route every week 0 0 05/03/2015 03/04/2018 methotrexate sodium 2.5 mg tablets,dose pack Take 15 mg by mouth once a week. 01/07/2016 12/17/2018 documented as of this encounter Discharge Disposition Disposition Code Departure Means Destination Discharge to home or self care documented in this encounter Plan of Treatment Not on file documented as of this encounter Procedures Procedure Name Priority Date/Time Associated Diagnosis Comments MAMMOGRAPHY, TOMOGRAPHY, BILATERAL Routine 05/25/2017 3:24 PM CDT SCAN - RADIOLOGY/IMAGING 05/25/2017 documented in this encounter Results * MAMMOGRAPHY, TOMOGRAPHY, BILATERAL (05/25/2017 3:24 PM CDT) Anatomical Region Laterality Modality Breast Bilateral Mammography 05/25/2017 3:24 PM CDT Narrative 05/25/2017 3:24 PM CDT SCREENING MAMM W CATHY BI ??Acc#: ??[id number] DATE OF EXAM: ??May 25 2017 ?? SCREENING MAMM W CATHY BI HISTORY: SCREENING. TECHNIQUE: 2 views of each breast were obtained with bilateral breast tomosynthesis. COMPARISON: 03/28/2016. FINDINGS: The breasts are heterogeneously dense. No suspicious mass or calcification is seen to suggest mammographic evidence of malignancy. ??Circumscribed nodular opacity anterior aspect left breast near the retroareolar region is unchanged. ??Small nodular opacity anterior aspect right breast near the retroareolar region is unchanged. ??Benign calcifications are present. Digital technology was employed plus computer aided detection software (R2) was utilized in interpretation of these images. ??This facility utilizes a reminder system to notify patient's of yearly mammograms. IMPRESSION: 1. ??BENIGN FINDINGS. 2. ??ANNUAL FOLLOW-UP RECOMMENDED. BI-RADS 2 Electronically signed by: Mariah Lyle M.D Interpreting Physician: ??MARIAH LYLE M.D. ??Read on: ??May 25 2017 10:25A Transcribed by: ??PSC ??On: May 25 2017 10:23A Approved Electronically by: ??MARIAH LYLE M.D. ??on: ??May 25 2017 10:23A Ordering DR: REFERRAL SELF Attending DR: DR INEZ LONG Attending: ??DR INEZ LONG Requesting: ??SELF, REFERRAL Requesting Fax: ??-- Attending Fax: ??[phone] Attending ID: ??[id number] Requesting ID: ??[id number] Report To 1 ID: ??[id number] Report To 1 Name: ??DR INEZ LONG Report To 1 FAX: ??[phone] [employer] Order #: ?? Procedure Note Miscellaneous, Not In File / Provider, MD Annabelle - 05/28/2017 SCREENING MAMM W CATHY BI Acc#: [id number] DATE OF EXAM: May 25 2017 SCREENING MAMM W CATHY BI HISTORY: SCREENING. TECHNIQUE: 2 views of each breast were obtained with bilateral breast tomosynthesis. COMPARISON: 03/28/2016. FINDINGS: The breasts are heterogeneously dense. No suspicious mass or calcification is seen to suggest mammographic evidence of malignancy. Circumscribed nodular opacity anterior aspect left breast near the retroareolar region is unchanged. Small nodular opacity anterior aspect right breast near the retroareolar region is unchanged. Benign calcifications are present. Digital technology was employed plus computer aided detection software (R2) was utilized in interpretation of these images. This facility utilizes a reminder system to notify patient's of yearly mammograms. IMPRESSION: 1. BENIGN FINDINGS. 2. ANNUAL FOLLOW-UP RECOMMENDED. BI-RADS 2 Electronically signed by: Mariah Lyle M.D Interpreting Physician: MARIAH LYLE M.D. Read on: May 25 2017 10:25A Transcribed by: PSC On: May 25 2017 10:23A Approved Electronically by: MARIAH LYLE M.D. on: May 25 2017 10:23A Ordering DR: REFERRAL SELF Attending DR: DR INEZ LONG Attending: DR INEZ LONG Requesting: SELF, REFERRAL Requesting Fax: -- Attending Attending ID: [id number] Requesting ID: [id number] Report To 1 ID: [id number] Report To 1 Name: DR INEZ LONG Report To 1 FAX: [phone] [facility] Order #: us Not In File Miscellaneous IMG MAMMO PROCEDURES F inal Result * SCAN - RADIOLOGY/IMAGING (05/25/2017) Anatomical Region Laterality Modality Other us Provider Scanning Final Result documented in this encounter Visit Diagnoses Not on filedocumented in this encounter Care Teams Station Mechanic Helper Relationship Specialty Start Date End Date Inez Long MD PCP - General 02/23/17 05/15/22 documented as of this encounter
--- OUTSIDE RECORDS SUMMARY | 2024-11-16 13:14 | XMS_ITS | Encounter Summary ---
Author Organization [facility] Healthcare Address [address] [place] [address] Care Team Providers Care Billing Services Manager Name Role Phone Francisco Long MD Primary Care Provider [phone] Encounter Details Date Type Department Care Team (Late st Contact Info) Description 05/11/2017 5:15 PM CDT Lab [address] [address] Unspecified essential hypertension; Need for hepatitis C screening test Social History Tobacco Use Types Packs/Day Years Used Date Smoking Tobacco: Never Alcohol Use Standard Drinks/Week Comments No 0 (1 standard drink = 0.6 oz pur e alcohol) Comments Unknown Sex and Gender Information Value Date Recorded Sex Assigned at Not on file 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 Gender Identity Not on file Sexual Orientation Not on file documented as of this encounter Plan of Treatment Not on file documented as of this encounter Procedures Procedure Name Priority Date/Time Associated Diagnosis Comments EGFR Routine 05/11/2017 5:12 PM CDT HEPATITIS C AB REFLEX RNA QUANT PCR Routine 05/11/2017 5:12 PM CDT LIPID PANEL Routine 05/11/2017 5:12 PM CDT Unspecified essential hypertension BASIC METABOLIC PANEL Routine 05/11/2017 5:12 PM CDT Unspecified essential hypertension documented in this encounter Results * Hepatitis C Antibody Reflex Hepatitis C RNA Quantitative PCR (05/11/2017 5:12 PM CDT) Hep C Ab Negative Negative [facility] Blood specimen (specimen) 05/11/2017 5:12 PM CDT 05/11/2017 5:34 PM CDT Francisco Long MD LAB MICROBIOLOGY - GENERAL ORD ERABLES Final Result Performing Organization Address City/State/ZIP Co ar Phone Number MEHRAN [phone] [address] [place] [address] * eGFR (05/11/2017 5:12 PM CDT) eGFR 63 mL/min/1.7 3 m2 MEHRAN Comment: Interpretive Data Reference Interval Normal ?>/= 90 mL/min/1.73m2 Mildly decreased* ? 60 - 89 mL/min/1.73m2 Mildly to moderately decreased ?45 - 59 mL/min/1.73m2 Moderately to severely decreased ??30 - 44 mL/min/1.73m2 Severely decreased ?15 - 29 mL/min/1.73m2 Kidney Failure ?< 15 ??mL/min/1.73m2 *Relative to young adult level If -Albanian multiply value by 1.16. Estimated glomerular filtration [...] was last reviewed 2016. Blood specimen (specimen) 05/11/2017 5:12 PM CDT 05/11/2017 5:47 PM CDT Francisco Long MD LAB BLOOD ORDERABLES Final Res ult Performing Organization Address [facility] Co de Phone Number MEHRAN [phone] [address] [facility] [place] [address] * Basic metabolic panel (05/11/2017 5:12 PM CDT) Sodium 138 135 - 145 mmol/L C[facility] CH Potassium, pl 4.1 3.5 - 5.1 mmol/L [facility] CH Chloride 100 100 - 114 mmol/L [facility] CH CO2 26 22 - 32 mmol/L [facility] BUN 18 8 - 24 mg/dL [facility] CH Glucose 129 70 - 199 mg/dL [facility] CH Creatinine 0.92 0.60 - 1.30 mg/dL [facility] CH Calcium 9.2 8.4 - 10.5 mg/dL [facility] CH Anion gap 16 8 - 16 mmol/L [facility] CH Blood specimen (specimen) 05/11/2017 5:12 PM CDT 05/11/2017 5:32 PM CDT Francisco Long MD LAB BLOOD ORDERABLES Final Res ult Performing Organization Address [facility] Co de Phone Number MEHRAN [phone] [place] [address] * (ABNORMAL) Lipid panel (05/11/2017 5:12 PM CDT) Cholesterol 217(H) 100 - 200 mg/dL CERNER Comment:Interpretive Data De sirable: <200 mg/dL Borderline high: 200-239 mg/dL High: >240 mg/dL Current interpretive data was last revised on 2016. Triglycerides 154(H) 10 - 150 mg/dL CERNER Comment:Interpretive Data De sirable: < 150 mg/dL Borderline High: 150 - 199 mg/dL High: 200 - 499 mg/dL Very High: > or = 499 mg/dL Current interpretive data was last revised on 2016. HDL 53 40 - 59 mg/dL CERNER Comment:Interpretive Data Le ss than 40 mg/dL - Low; A major risk factor for heart disease. Greater than or equal to 60 mg/dL - High; Considered protective of heart disease. Current interpretive data was last revised on 2016. LDL, calculated 133(H) 60 - 129 mg/dL ME[facility]AN DE JESUS Comment:Interpretive Data Op timal: < 100 mg/dL Near Optimal: 100 - 129 mg/dL Borderline High: 130 - 159 mg/dL High: > 160 mg/dL Current interpretive data was last revised on 2016. Non-HDL Cholesterol 164 mg/dL ME[facility]AN DE JESUS Comment:Interpretive Data Wh en triglycerides are >200 mg/dL, non-HDL C is a secondary target of therapy, with a goal 30 mg/dL higher than the identified LDL-C goal. Current interpretive data was last revised 2016. Blood specimen (specimen) 05/11/2017 5:12 PM CDT 05/11/2017 5:32 PM CDT Francisco Long MD LAB BLOOD ORDERABLES Final Res ult MEHRAN [id number] [address] [place] [address] documented in this encounter Visit Diagnoses Diagnosis Unspecified essential hypertension Need for hepatitis C screening test Special screening examination for other specified viral diseases documented in this encounter Care Teams Billing Services Manager Relationship Specialty Start Date End Date Francisco Long MD PCP - General 02/23/17 05/15/22 documented as of this encounter
--- OUTSIDE RECORDS SUMMARY | 2024-11-16 13:14 | XMS_ITS | Encounter Summary ---
Author Organization [facility] Healthcare Address [address] [place] [address] Care Team Providers Care Photo Booth Operator Name Role Phone Francisco Long MD Primary Care Provider [phone] Encounter Details Date Type Department Care Team (Late st Contact Info) Description 12/14/2014 9:35 AM SCRUMMASTER - 12/14/2014 11:59 PM SCRUMMASTER Hospital Encounter [facility] Francisco Long MD [address] [place] [address] [address] Type 2 or unspecified type diabetes mellitus, uncontrolled; Iron deficiency anemia; Essential hypertension Social History Tobacco Use Types Packs/Day Years Used Date Smoking Tobacco: Never Alcohol Use Standard Drinks/Week Comments No 0 (1 standard drink = 0.6 oz pur e alcohol) Comments Unknown Sex and Gender Information Value Date Recorded Sex Assigned at Not on file 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 Gender Identity Not on file Sexual Orientation Not on file documented as of this encounter Medications at Time of Discharge losartan-hydroCHL OROthiazide (HYZAAR) 100-12.5 mg per tablet TAKE 1 TABLET BY ORAL ROUTE EVERY DAY 90 3 01/28/2013 10/02/2017 documented as of this encounter Plan of Treatment Not on file documented as of this encounter Visit Diagnoses Diagnosis Type 2 or unspecified type diabetes mellitus, uncontrolled Iron deficiency anemia Unspecified iron deficiency anemia Essential hypertension Unspecified essential hypertension documented in this encounter Care Teams Photo Booth Operator Relationship Specialty Start Date End Date Francsico Long MD PCP - General 09/19/13 02/22/17 documented as of this encounter
--- OUTSIDE RECORDS SUMMARY | 2024-11-16 13:14 | XMS_ITS | Encounter Summary ---
Author Organization [facility] Medical [facility] Address [address] [facility] [address] [place] [address] Care Team Providers Care Tobacco Educator Name Role Phone Francisco Long MD Primary Care Provider [phone] Reason for Visit * Reason Comments Follow-up htn Encounter Details Date Type Department Care Team (Late st Contact Info) Description 05/25/2017 9:00 AM CDT Office Visit [facility] [address] [facility] [address] [place] [id number] Francisco Long MD [address] [place] [address] [address] [place], [place] [id number] Essential hypertension (Primary Dx); Rheumatoid arteritis; Medicare annual wellness visit, subsequent; Iron deficiency Social History Tobacco Use Types Packs/Day Years Used Date Smoking Tobacco: Never Alcohol Use Standard Drinks/Week Comments No 0 (1 standard drink = 0.6 oz pur e alcohol) Comments Unknown Sex and Gender Information Value Date Recorded Sex Assigned at Not on file 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 Gender Identity Not on file Sexual Orientation Not on file documented as of this encounter Last Filed Vital Signs Vital Sign Reading Time Taken Comments Blood Pressure 124/86 05/25/2017 8:54 AM CDT Pulse 72 05/25/2017 8:54 AM CDT Temperature - - Respiratory Rate 16 05/25/2017 8:54 AM CDT Oxygen Saturation - - Inhaled Oxygen Concentration - - Weight 87.3 kg (192 lb 6.4 oz) 05/25/2017 8:54 A M CDT Height 170.2 cm (5' 7 ) 05/25/2017 8:54 AM CDT Body Mass Index 30.13 05/25/2017 8:54 AM CDT documented in this encounter Ordered Prescriptions Prescription Sig Dispense Quantity Refills Last Filled Start Date End Date atorvastatin (LIPITOR) 10 mg tablet Take 1 tablet (10 mg total) by mouth daily. 30 tablet 11 05/25/2017 05/25/2017 documented in this encounter Progress Notes * Francisco Long MD - 05/25/2017 9:00 AM CDT Subjective/Objective Patient ID: Jolene Cedillo is a 71 y.o. female. Chief Complaint Follow-up (htn) HPI Jolene kristal today 71-year-old white female follow-up high blood pressure she is feeling goodcholesterol results were discussed with her her normal bone density test was discussed with her shehad a bone density test in February 2017 is mammogram done he does those remarkable neck supple lungs clear cardiovascular regular abdomen soft tender extremities no edema assessment hypertension doing g ood 124/86 continue same Rx cardiac risk to 12.2% statin therapy she is agreeable stools try small dose atorvastatin Review of Systems she has no chest pain shortness of breath no orthopedic injuries keeps her from exercising Physical Exam the patient appears no acute distress vitals per chart the nose those remarkable neckis supple lungs clear Assessment/Plan Diagnoses and all orders for this visit: 1. Essential hypertension (Primary) 2. Rheumatoid arteritis 3. Medicare annual wellness visit, subsequent 4. Iron deficiency Other orders - COLONOSCOPY - DEXA SCAN Patient's blood pressure is doing okay with current therapy will add statin therapy to watch for muscle pain muscle weakness dark-colored urine she will continue current rheumatoid arthritis dosage of medications from her output from her program development manager and the patient the will be given iron supplementation once daily follow-up in a month her cardiac risk was calculated 12.2% so will begin atorvastatin 10 mg as of today documented in this encounter Plan of Treatment Not on file documented as of this encounter Procedures Procedure Name Priority Date/Time Associated Diagnosis Comments DEXA SCAN Routine 03/07/2017 COLONOSCOPY Routine 10/05/2009 documented in this encounter Results * DEXA SCAN (03/07/2017) DEXA Scan Normal Anatomical Region Laterality Modality Other Historical Provider HEALTH MAINTENANCE Final Result * COLONOSCOPY (10/05/2009) Colonoscopy Normal Anatomical Region Laterality Modality Other Historical Provider HEALTH MAINTENANCE Final Result documented in this encounter Visit Diagnoses Diagnosis Essential hypertension- Primary Unspecified essential hypertension Rheumatoid arteritis (CMS/HCC) (HCC) Other specified disorders of arteries and arterioles Medicare annual wellness visit, subsequent Iron deficiency Disorders of iron metabolism documented in this encounter Care Teams Tobacco Educator Relationship Specialty Start Date End Date Francisco Long MD PCP - General 02/23/17 05/15/22 documented as of this encounter
--- OUTSIDE RECORDS SUMMARY | 2024-11-16 13:14 | XMS_ITS | Encounter Summary ---
Author Organization [facility] Healthcare Address [address] [place] [address] Care Team Providers Care Speech Language Assistant Name Role Phone Francisco Long MD Primary Care Provider [phone] Encounter Details Date Type Department Care Team (Late st Contact Info) Description 05/11/2017 8:24 AM CDT - 05/11/2017 11:59 PM CDT Hospital Encounter [facility] OP INTERIM Francisco Long MD [address] [place] [id number] Discharge Disposition: Discharge to home or self care Social History Tobacco Use Types Packs/Day Years Used Date Smoking Tobacco: Never Alcohol Use Standard Drinks/Week Comments No 0 (1 standard drink = 0.6 oz pur e alcohol) Comments Unknown Sex and Gender Information Value Date Recorded Sex Assigned at Not on file 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 us [facility] Provider LAB BLOOD ORDERABLES Humaira l Result * DISCHARGE LABORATORY CUMULATIVE REPORT (05/11/2017) us Provider Scanning LAB BLOOD ORDERABLES Final Res ult documented in this encounter Visit Diagnoses Not on filedocumented in this encounter Care Teams Speech Language Assistant Relationship Specialty Start Date End Date Francisco Long MD PCP - General 02/23/17 05/15/22 documented as of this encounter
--- OUTSIDE RECORDS SUMMARY | 2024-11-16 13:14 | XMS_ITS | Encounter Summary ---
Author Organization [facility] Healthcare Address [address] [place] [address] Care Team Providers Care Microwave Radio Technician Name Role Phone Unavailable Primary Care Provider Unavailabl e Encounter Details Date Type Department Care Team (Late st Contact Info) Description 11/08/2010 12:01 AM ACREAGE REPORTER - 11/08/2010 11:59 PM ACREAGE REPORTER Hospital Encounter [facility] Olivia Spencer MD [address] [facility] [address] [address] Lump or mass in breast; Solitary cyst of breast Social History Tobacco Use Types Packs/Day Years Used Date Smoking Tobacco: Never Assessed Comments Unknown Sex and Gender Information Value Date Recorded Sex Assigned at Not on file 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
--- OUTSIDE RECORDS SUMMARY | 2024-11-16 13:14 | XMS_ITS | Encounter Summary ---
Author Organization [facility] Healthcare Address [address] [place] [address] Care Team Providers Care Supercharger Repair Supervisor Name Role Phone Francisco Long MD Primary Care Provider [phone] Encounter Details Date Type Department Care Team (Late st Contact Info) Description 01/29/2014 8:35 AM HIGH SCHOOL TUTOR - 01/29/2014 11:59 PM HIGH SCHOOL TUTOR Hospital Encounter [facility] Wendy Spencer MD [address] [place] [address] Other screening mammogram Social History Tobacco Use Types Packs/Day Years Used Date Smoking Tobacco: Never Alcohol Use Standard Drinks/Week Comments No 0 (1 standard drink = 0.6 oz pur e alcohol) Comments Unknown Sex and Gender Information Value Date Recorded Sex Assigned at Not on file 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 Sex Female 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 SCHOOL 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 Gender Identity Not on file Sexual Orientation Not on file documented as of this encounter Medications at Time of Discharge losartan-hydroCHL OROthiazide (HYZAAR) 100-12.5 mg per tablet TAKE 1 TABLET BY ORAL ROUTE EVERY DAY 90 3 01/28/2013 10/02/2017 documented as of this encounter Plan of Treatment Not on file documented as of this encounter Procedures Procedure Name Priority Date/Time Associated Diagnosis Comments DIGITAL MAMMOGRAPHY Routine 01/29/2014 9 :05 AM HIGH SCHOOL TUTOR documented in this encounter Results * DIGITAL MAMMOGRAPHY (01/29/2014 9:05 AM HIGH SCHOOL TUTOR) Anatomical Region Laterality Modality Breast Mammography 01/29/2014 9:05 AM HIGH SCHOOL TUTOR Narrative 01/29/2014 3:29 PM HIGH SCHOOL TUTOR MB Performed by: ?? Screening Mamm Bi ??Acc#: ??[id number] DATE OF EXAM: ??Jan ??2013 CLINICAL HISTORY: Routine screening. RESULT: Craniocaudal, exaggerated lateral craniocaudal and mediolateral oblique views demonstrate moderate fibroglandular density in the breasts bilaterally. ??Circumscribed low density opaque nodule in the 6 o'clock subareolar right breast is stable. ??Larger one in the direct subareolar left breast has decreased in size. ??No dominant mass suspicious for malignancy, skin thickening, nipple retraction or suspicious cluster of microcalcifications is seen. ??A few benign appearing calcifications bilaterally are again observed. Digital technology was employed plus computer-aided detection software (R2) was utilized in interpretation of these images. ??This facility utilizes a reminder system to notify patients of yearly mammograms. IMPRESSION: 1. NO FINDING SUSPICIOUS FOR MALIGNANCY. 2. DECREASED SIZE OF A CYST IN SUBAREOLAR LEFT BREAST, BUT OTHERWISE NO SIGNIFICANT CHANGE SINCE 01/28/13 OR 11/29/11. BI-RADS CATEGORY 2 - BENIGN Interpreting Physician: ??CONCEPCIÓN TAYLOR M.D. ??Read on: ??Mar ??2013 9:06A Transcribed by: ??ari ?? On: Jan ??2013 11:22A Approved Electronically by: ??CLAUDIA Jacobs, CONCEPCIÓN ??on: ??Mar ??2013 3:29P Ordering DR: WENDY SEVERINO Attending : WENDY SEVERINO Procedure Note Provider, MD Annabelle - 03/20/2017 MB Performed by: Screening Mamm Bi Acc#: [id number] DATE OF EXAM: Jan 29 2014 CLINICAL HISTORY: Routine screening. RESULT: Craniocaudal, exaggerated lateral craniocaudal and mediolateral obliqueviews demonstrate moderate fibroglandular density in the breastsbilaterally. Circumscribed low density opaque nodule in the 6 o'clocksubareolar right breast is stable. Larger one in the direct subareolarleft breast has decreased in size. No dominant mass suspicious formalignancy, skin thickening, nipple retraction or suspicious cluster ofmicrocalcifications is seen. A few benign appearing calcificationsbilaterally are again observed. Digital technology was employed pluscomputer-aided detection software (R2) was utilized in interpretation ofthese images. This facility utilizes a reminder system to notify patientsof yearly mammograms. IMPRESSION: 1. NO FINDING SUSPICIOUS FOR MALIGNANCY. 2. DECREASED SIZE OF A CYST IN SUBAREOLAR LEFT BREAST, BUT OTHERWISE NOSIGNIFICANT CHANGE SINCE 01/28/13 OR 11/29/11. BI-RADS CATEGORY 2 - BENIGN Interpreting Physician: CONCEPCIÓN TAYLOR M.D. Read on: Jan 29 20149:06A Transcribed by: ari On: Jan 29 2014 11:22A Approved Electronically by: CONCEPCIÓN TAYLOR M.D. on: Jan 29 20143:29P Ordering DR: WENDY SEVERINO Attending DR: WENDY SEVERINO us Historical Provider MD MCNAIR MAMMO PROCEDURES Humaira l Result documented in this encounter Visit Diagnoses Diagnosis Other screening mammogram documented in this encounter Care Teams Supercharger Repair Supervisor Relationship Specialty Start Date End Date Francisco Long MD PCP - General 09/19/13 02/22/17 documented as of this encounter
--- OUTSIDE RECORDS SUMMARY | 2024-11-16 13:14 | XMS_ITS | Encounter Summary ---
Author Organization [facility] Healthcare Address [address] [place] [address] Care Team Providers Care Graphics Manager Name Role Phone Inez Long MD Primary Care Provider Encounter Details Date Type Department Care Team (Late st Contact Info) Description 01/28/2013 7:36 AM DRAGLINE OPERATOR HELPER - 01/28/2013 11:59 PM DRAGLINE OPERATOR HELPER Hospital Encounter [facility] Wendy Spencer MD [address] [place] [address] Other screening mammogram Social History Tobacco Use Types Packs/Day Years Used Date Smoking Tobacco: Never Alcohol Use Standard Drinks/Week Comments No 0 (1 standard drink = 0.6 oz pur e alcohol) Comments Unknown Sex and Gender Information Value Date Recorded Sex Assigned at Not on file Legal Sex Female 12:21 PM DRAGLINE OPERATOR HELPER Gender Identity Not on file [...] Date/Time Associated Diagnosis Comments DIGITAL MAMMOGRAPHY Routine 01/28/2013 8 :08 AM DRAGLINE OPERATOR HELPER documented in this encounter Results * DIGITAL MAMMOGRAPHY (01/28/2013 8:08 AM DRAGLINE OPERATOR HELPER) Anatomical Region Laterality Modality Breast Mammography 01/28/2013 8:08 AM DRAGLINE OPERATOR HELPER Narrative 01/28/2013 10:59 AM DRAGLINE OPERATOR HELPER CC: ??INEZ LONG M.D. Screening Mamm Bi ??Acc#: ??[id number] DATE OF EXAM: ??Mar ??2012 CLINICAL HISTORY: Screen. Performed by: ??CD. RESULT: Two views of each breast correlated to the studies dating back through 06/22/08 demonstrate a moderately dense fibroglandular pattern bilaterally. ??Benign breast calcifications are again noted. In the retroareolar area on the left, there is a well-circumscribed 18 mm nodule that is actually slightly smaller when compared to the 2 most recent studies from 09/18/12 and 11/29/11. ??The sonogram on 11/08/10 demonstrated a breast cyst in this region to account for this finding. No suspicious mass or calcification is seen to suggest mammographic evidence of malignancy. Digital technology was employed plus computer-aided detection software (R2) was utilized in interpretation of these images. This facility utilizes a reminder system to notify patients of yearly mammograms. IMPRESSION: 1. ??NO DEFINITIVE MAMMOGRAPHIC EVIDENCE OF MALIGNANCY. 2. ??ANNUAL FOLLOWUP RECOMMENDED. BI-RADS 2 - BENIGN FINDINGS Interpreting Physician: ??JEFRY LEA M.D. ??Read on: ??Mar ??2012 ??8:10A Transcribed by: ??LDF ??On: Jan ??2012 10:41A Approved Electronically by: ??JEFRY LEA M.D. ??on: ??Mar ??2012 10:59A Ordering DR: MARY SEVERINO Attending DR: WENDY SEVERINO Procedure Note Provider, MD Annabelle - 03/20/2017 CC: INEZ LONG M.D. Screening Mamm Bi Acc#: [id number] DATE OF EXAM: Jan 28 2013 CLINICAL HISTORY: Screen. Performed by: CD. RESULT: Two views of each breast correlated to the studies dating back through06/22/08 demonstrate a moderately dense fibroglandular pattern bilaterally.Benign breast calcifications are again noted. In the retroareolar area onthe left, there is a well-circumscribed 18 mm nodule that is actuallyslightly smaller when compared to the 2 most recent studies from 09/18/12and 11/29/11. The sonogram on 11/08/10 demonstrated a breast cyst in thisregion to account for this finding. No suspicious mass or calcification isseen to suggest mammographic evidence of malignancy. Digital technologywas employed plus computer-aided detection software (R2) was utilized ininterpretation of these images. This facility utilizes a reminder systemto notify patients of yearly mammograms. IMPRESSION: 1. NO DEFINITIVE MAMMOGRAPHIC EVIDENCE OF MALIGNANCY. 2. ANNUAL FOLLOWUP RECOMMENDED. BI-RADS 2 - BENIGN FINDINGS Interpreting Physician: JEFRY LEA M.D. Read on: Jan 28 2013 8:10A Transcribed by: MARCIAL On: Jan 28 2013 10:41A Approved Electronically by: JEFRY LEA M.D. on: Jan 28 2013 10:59A Ordering DR: MARY SEVERINO Attending DR: WENDY SEVERINO us Historical Provider MD MCNAIR MAMMO PROCEDURES Humaira l Result documented in this encounter Visit Diagnoses Diagnosis Other screening mammogram documented in this encounter Care Teams Graphics Manager Relationship Specialty Start Date End Date Inez Long MD PCP - General 03/10/11 09/18/13 documented as of this encounter
--- OUTSIDE RECORDS SUMMARY | 2024-11-16 13:14 | XMS_ITS | Encounter Summary ---
Author Organization [facility] Healthcare Address [address] [place] [address] Care Team Providers Care Autocutter Name Role Phone Unavailable Primary Care Provider Unavailabl e Encounter Details Date Type Department Care Team (Late st Contact Info) Description 10/05/2009 12:01 AM AIRCRAFT NAVIGATOR - 10/05/2009 11:59 PM AIRCRAFT NAVIGATOR Hospital Encounter [facility] Tomy James MD [address] [place] [address] [facility] [address] [place] [address] Special screening for malignant neoplasms, colon; Diverticulosis of colon; Hemorrhoids Social History Tobacco Use Types Packs/Day Years Used Date Smoking Tobacco: Never Assessed Comments Unknown Sex and Gender Information Value Date Recorded Sex Assigned at Not on file Legal Sex Female 12:21 PM AIRCRAFT NAVIGATOR Gender Identity Not on file Sexual Orientation Not on file documented as of this encounter Plan of Treatment Not on file documented as of this encounter Procedures Procedure Name Priority Date/Time Associated Diagnosis Comments COLONOSCOPY Routine 10/05/2009 documented in this encounter Results * Colonoscopy (10/05/2009) Anatomical Region Laterality Modality Other us Historical Provider ENDOSCOPY PROCEDURES Humaira l Result documented in this encounter Visit Diagnoses Diagnosis Special screening for malignant neoplasms, colon Diverticulosis of colon Diverticulosis of colon (without mention of hemorrhage) Hemorrhoids documented in this encounter
--- OUTSIDE RECORDS SUMMARY | 2024-11-16 13:14 | XMS_ITS | Encounter Summary ---
Author Organization [facility] Healthcare Address [address] [place] [address] Care Team Providers Care Laboratory Geneticist Name Role Phone Unavailable Primary Care Provider Unavailabl e Encounter Details Date Type Department Care Team (Late st Contact Info) Description 09/22/2009 12:01 AM CDT - 09/22/2009 11:59 PM CDT Hospital Encounter [facility] MOSES Bolden, Olivia Siddiqi MD [address] [facility] [address] [facility] [address] [place] [address] Other screening mammogram Social History Tobacco Use Types Packs/Day Years Used Date Smoking Tobacco: Never Assessed Comments Unknown Sex and Gender Information Value Date Recorded Sex Assigned at Not on file Legal Sex Female 12:21 PM VP TRAINING Gender Identity Not on file Sexual Orientation Not on file documented as of this encounter Plan of Treatment Not on file documented as of this encounter Visit Diagnoses Diagnosis Other screening mammogram documented in this encounter
--- OUTSIDE RECORDS SUMMARY | 2024-11-16 13:14 | XMS_ITS | Encounter Summary ---
Author Organization [facility] Healthcare Address [address] [place] [address] Care Team Providers Care Sewing Machine Assembler Name Role Phone Francisco Long MD Primary Care Provider [phone] Encounter Details Date Type Department Care Team (Late st Contact Info) Description 11/03/2016 9:11 AM VEHICLE TRIMMER - 11/03/2016 11:59 PM [facility] Hospital Encounter [facility] CLINCONV Francisco Long MD [address] [place] [address] [address] Iron deficiency anemia; Mixed hyperlipidemia; Essential (primary) hypertension; Abnormal finding in urine Social History Tobacco Use Types Packs/Day Years Used Date Smoking Tobacco: Never Alcohol Use Standard Drinks/Week Comments No 0 (1 standard drink = 0.6 oz pur e alcohol) Comments Unknown Sex and Gender Information Value Date Recorded Sex Assigned at Not on file Legal Sex Female 12:21 PM VEHICLE TRIMMER Gender Identity Not on file Sexual Orientation [...] 01/07/2016 12/17/2018 documented as of this encounter Plan of Treatment Not on file documented as of this encounter Procedures Procedure Name Priority Date/Time Associated Diagnosis Comments URINE MICROBIOLOGY Routine 11/03/2016 12 :00 AM VEHICLE TRIMMER documented in this encounter Results * Urine Microbiology (11/03/2016 12:00 AM VEHICLE TRIMMER) 11/03/2016 Narrative CDR HISTORICAL RESULTS - 11/05/2016 4:45 PM VEHICLE TRIMMER [facility] Laboratories ?Patient Name: ?SHAUNA GORDON ?Med. Rec#: ?? [id number] ?Pt. Acct.#: ??[id number] ?Birthdate: ?? 1945 ?Age / Sex: ?? 70Y / F ?Location: ?[facility] (Laborato ?Admit Date: ??11/01/2016 ?Discharge Date: ? 11/01/2016 ?Doctor: ?Patient Type: ?CH Ancillary - Insur Culture, Urine ? Collected: 11/03/2016 09:12 Specimen: Urine ?? Specimen Source: Clean Voided Specimen Status: Final ??Last Update: 11/05/2016 08:18 Organism ?? Less than 10,000 cfu/ml of ?? Gram negative bacilli Organism ?? Less than 10,000 cfu/ml of ?? multiple Gram positive organisms Comment ? This culture result is consistent with contamination ?? by normal genital-perineal hang. us Historical Provider LAB MICROBIOLOGY - GENERA L ORDERABLES Final Result CDR HISTORICAL RESULTS documented in this encounter Visit Diagnoses Diagnosis Iron deficiency anemia Unspecified iron deficiency anemia Mixed hyperlipidemia Essential (primary) hypertension Unspecified essential hypertension Abnormal finding in urine documented in this encounter Care Teams Sewing Machine Assembler Relationship Specialty Start Date End Date Francisco Long MD PCP - General 09/19/13 02/22/17 documented as of this encounter
--- OUTSIDE RECORDS SUMMARY | 2024-11-16 13:14 | XMS_ITS | Encounter Summary ---
Author Organization [facility] Healthcare Address [address] [place] [address] Care Team Providers Care Liability Claims Adjuster Name Role Phone Unavailable Primary Care Provider Unavailabl e Encounter Details Date Type Department Care Team (Late st Contact Info) Description 12/24/2008 11:55 AM PROMOTIONAL MODEL - 12/24/2008 1:10 PM PROMOTIONAL MODEL Hospital Encounter [facility] Tal Razo MD [address] [address] [place] [address] Francisco Long MD [address] [place] [address] Epistaxis; Essential hypertension Social History Tobacco Use Types Packs/Day Years Used Date Smoking Tobacco: Never Assessed Comments Unknown Sex and Gender Information Value Date Recorded Sex Assigned at Not on file Legal Sex Female 12:21 PM PROMOTIONAL MODEL Gender Identity Not on file Sexual Orientation Not on file documented as of this encounter Plan of Treatment Not on file documented as of this encounter Visit Diagnoses Diagnosis Epistaxis Essential hypertension Unspecified essential hypertension documented in this encounter
--- OUTSIDE RECORDS SUMMARY | 2024-11-16 13:14 | XMS_ITS | Encounter Summary ---
Author Organization [facility] Facility Care Team Providers Care Base Brander Name Role Phone Francisco Long MD Primary Care Provider [phone] Encounter Details Date Type Department Care Team (Late st Contact Info) Description 10/20/2014 - 11/25/2014 11:59 PM WARD SUPERVISOR Hospital Encounter [facility] CLINCONV Social History Tobacco Use Types Packs/Day Years Used Date Smoking Tobacco: Never Alcohol Use Standard Drinks/Week Comments No 0 (1 standard drink = 0.6 oz pur e alcohol) Comments Unknown Sex and Gender Information Value Date Recorded Sex Assigned at Not on file Legal Sex Female 12:21 PM WARD SUPERVISOR Gender Identity Not on file Sexual [...] Associated Diagnosis Comments DISCHARGE LABORATORY CUMULATIVE REPORT Routine 10/21/2014 5:18 PM WARD SUPERVISOR SERUM ALDOLASE Routine 10/20/2014 4:23 AM WARD SUPERVISOR documented in this encounter Results * Discharge Laboratory Cumulative Report (10/21/2014 5:18 PM WARD SUPERVISOR) 10/21/2014 5:18 PM WARD SUPERVISOR Narrative HISTORICAL RESULTS - 10/21/2014 5:18 PM WARD SUPERVISOR ? [facility] ? Department of Laboratories ? [facility] ? [place] ?[place] [facility] [address] ?Network ? Reference ?Laboratory ? [address] ?Attn Main Laboratory ?[place] [address] Patient Name: ? SHAUNA GORDON Med Rec Number: ?? [id number] Date of : ?1945 Gender/Age: ? Female 68 years Doctor: ? [facility]MED Doctor Unknown Report Date/Time: 10/21/2014 17:18 ?* Abnormal ??C Critical ??f Footnote ??^ Corrected ??L Low ??H High ?i Interp Data ??@ Reference Lab ?Chart Type: Cumulative ? CHEMISTRY ? Standard Blood Chemistry ?10/20/2014 ?10:23:00 Test ?Units ?Reference Aldolase ??4.4 ? Units/L ??0.0-8.0 10/20/2014 10:23:00 ??Aldolase: [id number] ??Testing performed by: [place] [address] Historical Provider MD LAB BLOOD ORDERABLES Humaira l Result Performing Organization Address [facility] Co de Phone Number HISTORICAL RESULTS * Serum aldolase (10/20/2014 4:23 AM WARD SUPERVISOR) Aldolase 4.4 0.0 - 8.0 Units/L HISTORICAL RESULTS Serum 10/20/2014 4:23 AM WARD SUPERVISOR Narrative HISTORICAL RESULTS - 10/21/2014 3:46 AM WARD SUPERVISOR [id number] ??Testing performed by: [place] [address] Historical Provider MD LAB BLOOD ORDERABLES Humaira l Result Performing Organization Address [facility] Co de Phone Number HISTORICAL RESULTS documented in this encounter Visit Diagnoses Not on filedocumented in this encounter Care Teams Base Brander Relationship Specialty Start Date End Date Francisco Long MD PCP - General 09/19/13 02/22/17 documented as of this encounter
--- OUTSIDE RECORDS SUMMARY | 2024-11-16 13:14 | XMS_ITS | Encounter Summary ---
Author Organization [facility] Healthcare Address [address] [place] [address] Care Team Providers Care Glass Lined Tank Repairer Name Role Phone Francisco Long MD Primary Care Provider [phone] Encounter Details Date Type Department Care Team (Late st Contact Info) Description 08/10/2014 7:49 AM CDT - 08/10/2014 11:59 PM CDT Hospital Encounter [facility] CLINCONV Francisco Long MD [address] [place] [id number] Type 2 or unspecified type diabetes mellitus, uncontrolled; Vitamin D deficiency; Mixed hyperlipidemia Social History Tobacco Use Types Packs/Day Years Used Date Smoking Tobacco: Never Alcohol Use Standard Drinks/Week Comments No 0 (1 standard drink = 0.6 oz pur e alcohol) Comments Unknown Sex and Gender Information Value Date Recorded Sex Assigned at Not on file Legal Sex Female 12:21 PM ASSISTANT GENERAL MANAGER Gender Identity Not on file [...] 2 or unspecified type diabetes mellitus, uncontrolled Vitamin D deficiency Mixed hyperlipidemia documented in this encounter Care Teams Glass Lined Tank Repairer Relationship Specialty Start Date End Date Francisco Long MD PCP - General 09/19/13 02/22/17 documented as of this encounter
--- OUTSIDE RECORDS SUMMARY | 2024-11-16 13:14 | XMS_ITS | Encounter Summary ---
Author Organization [facility] Healthcare Address [address] [place] [address] Care Team Providers Care Child Health Associate Name Role Phone Francisco Long MD Primary Care Provider [phone] Encounter Details Date Type Department Care Team (Late st Contact Info) Description 01/26/2016 1:09 PM FRONT END MANAGER - 01/26/2016 11:59 PM FRONT END MANAGER Hospital Encounter [facility] CLINCONV Francisco Long MD [address] [place] [address] [address] Other fatigue; Iron deficiency anemia Social History Tobacco Use Types Packs/Day Years Used Date Smoking Tobacco: Never Alcohol Use Standard Drinks/Week Comments No 0 (1 standard drink = 0.6 oz pur e alcohol) Comments Unknown Sex and Gender Information Value Date Recorded Sex Assigned at Not on file Legal Sex Female 12:21 PM FRONT END MANAGER Gender Identity Not on file Sexual Orientation Not on file documented as of this encounter Medications at Time of Discharge folic acid (FOLVITE) 1 mg tablet take [...] of this encounter Visit Diagnoses Diagnosis Other fatigue Iron deficiency anemia Unspecified iron deficiency anemia documented in this encounter Care Teams Child Health Associate Relationship Specialty Start Date End Date Francisco Long MD PCP - General 09/19/13 02/22/17 documented as of this encounter
--- OUTSIDE RECORDS SUMMARY | 2024-11-16 13:14 | XMS_ITS | Encounter Summary ---
Author Organization [facility] Healthcare Address [address] [place] [address] Care Team Providers Care Marketing Senior Recruiter Name Role Phone Francisco Long MD Primary Care Provider [phone] Encounter Details Date Type Department Care Team (Late st Contact Info) Description 09/18/2012 2:09 PM CDT - 09/18/2012 11:59 PM CDT Hospital Encounter [facility] Francisco Long MD [address] [facility] [address] [place] [address] Larry Wetzel PA [address] [facility] [address] [place] [address] Lump or mass in breast Social History Tobacco Use Types Packs/Day Years Used Date Smoking Tobacco: Never Alcohol Use Standard Drinks/Week Comments No 0 (1 standard drink = 0.6 oz pur e alcohol) Comments Unknown Sex and Gender Information Value Date Recorded Sex Assigned at Not on file Legal Sex Female 12:21 PM ASSEMBLER UTILITY BUILDINGS Gender Identity Not on file Sexual Orientation Not on file documented as of this encounter Plan of Treatment Not on file documented as of this encounter Visit Diagnoses Diagnosis Lump or mass in breast documented in this encounter Care Teams Marketing Senior Recruiter Relationship Specialty Start Date End Date Francisco Long MD PCP - General 03/10/11 09/18/13 documented as of this encounter
--- OUTSIDE RECORDS SUMMARY | 2024-11-16 13:14 | XMS_ITS | Encounter Summary ---
Author Organization [facility] Healthcare Address [address] [place] [address] Care Team Providers Care Welder Shielded Metal Arc Name Role Phone Unavailable Primary Care Provider Unavailabl e Encounter Details Date Type Department Care Team (Late st Contact Info) Description 10/19/2010 12:01 AM PILOT PLANT RESEARCH TECHNICIAN - 10/19/2010 11:59 PM PILOT PLANT RESEARCH TECHNICIAN Hospital Encounter [facility] Olivia Spencer MD [address] [facility] [address], [place] [address] Other screening mammogram Social History Tobacco Use Types Packs/Day Years Used Date Smoking Tobacco: Never Assessed Comments Unknown Sex and Gender Information Value Date Recorded Sex Assigned at Not on file Legal Sex Female 12:21 PM PILOT PLANT RESEARCH TECHNICIAN Gender Identity Not on file Sexual Orientation Not on file documented as of this encounter Plan of Treatment Not on file documented as of this encounter Visit Diagnoses Diagnosis Other screening mammogram documented in this encounter
--- OUTSIDE RECORDS SUMMARY | 2024-11-16 13:14 | XMS_ITS | Encounter Summary ---
Author Organization [facility] Healthcare Address [address] [place] [address] Care Team Providers Care President Celebrity Acquistion Name Role Phone Francisco Long MD Primary Care Provider [phone] Encounter Details Date Type Department Care Team (Late st Contact Info) Description 03/25/2015 10:29 AM CDT - 03/25/2015 11:59 PM CDT Hospital Encounter [facility] Wendy Spencer MD [address] [place] [address] Other screening mammogram; Solitary cyst of breast Social History Tobacco Use Types Packs/Day Years Used Date Smoking Tobacco: Never Alcohol Use Standard Drinks/Week Comments No 0 (1 standard drink = 0.6 oz pur e alcohol) Comments Unknown Sex and Gender Information Value Date Recorded Sex Assigned at Not on file Legal Sex Female 12:21 PM GENERAL SURGEON Gender Identity Not on file Sexual Orientation [...] Date/Time Associated Diagnosis Comments DIGITAL MAMMOGRAPHY Routine 03/25/2015 1 0:56 AM CDT documented in this encounter Results * DIGITAL MAMMOGRAPHY (03/25/2015 10:56 AM CDT) Anatomical Region Laterality Modality Breast Mammography 03/25/2015 10:5 6 AM CDT Narrative 03/25/2015 3:46 PM CDT Mr Screening Mamm Bi ??Acc#: ??[id number] DATE OF EXAM: ??Mar 25 2015 Performed by: [email or web address] CLINICAL HISTORY: Screening. RESULT: Craniocaudal and mediolateral oblique views demonstrate heterogeneously dense parenchyma in the breasts bilaterally. ??A circumscribed low density opaque nodule in the 6 o'clock subareolar right breast is stable. Previously identified larger one in the subareolar left breast has further decreased in size. ?? No dominant mass suspicious for malignancy, skin thickening, nipple retraction or suspicious cluster of microcalcifications is seen. ??Benign calcifications bilaterally are again observed. Digital technology was employed plus computer-aided detection software (R2) was utilized in interpretation of these images. ??This facility utilizes a reminder system to notify patients of yearly mammograms. IMPRESSION: 1. FURTHER DECREASE IN SIZE OF SUBAREOLAR LEFT BREAST CYST. 2. NO FINDING SUSPICIOUS FOR MALIGNANCY. 3. NO OTHER SIGNIFICANT CHANGE SINCE 18 SEPTEMBER 2012 LEFT MAMMOGRAM OR BILATERAL MAMMOGRAM ON 29 NOVEMBER 2011 AND 22 SEPTEMBER 2009. BI-RADS CATEGORY 2 - BENIGN Interpreting Physician: ??DR CONCEPCIÓN TAYLOR M.D. ??Read on: ??Mar 25 2015 10:56A Transcribed by: ??mrr ??On: Mar 25 2015 ??2:53P Approved Electronically by: ??CLAUDIA Jacobs, DR BEEBE ??on: ??Mar 25 2015 3:46P Attending: ??, Requesting: ??MARY SEVERINO Requesting Fax: ??-- Attending Fax: ??-- Attending ID: ?? Requesting ID: ??[id number] Report To 1 ID: ??[id number] Report To 1 Name: ??WENDY SEVERINO Report To 1 FAX: ??-- NextGen Order #: Procedure Note Provider, MD Annabelle - 03/20/2017 Mr Screening Mamm Bi Acc#: [id number] DATE OF EXAM: Mar 25 2015 Performed by: [email or web address] CLINICAL HISTORY: Screening. RESULT: Craniocaudal and mediolateral oblique views demonstrate heterogeneouslydense parenchyma in the breasts bilaterally. A circumscribed low densityopaque nodule in the 6 o'clock subareolar right breast is stable.Previously identified larger one in the subareolar left breast has furtherdecreased in size. No dominant mass suspicious for malignancy, skinthickening, nipple retraction or suspicious cluster of microcalcificationsis seen. Benign calcifications bilaterally are again observed. Digitaltechnology was employed plus computer-aided detection software (R2) wasutilized in interpretation of these images. This facility utilizes [employer] system to notify patients of yearly mammograms. IMPRESSION: 1. FURTHER DECREASE IN SIZE OF SUBAREOLAR LEFT BREAST CYST. 2. NO FINDING SUSPICIOUS FOR MALIGNANCY. 3. NO OTHER SIGNIFICANT CHANGE SINCE 18 SEPTEMBER 2012 LEFT MAMMOGRAM ORBILATERAL MAMMOGRAM ON 29 NOVEMBER 2011 AND 22 SEPTEMBER 2009. BI-RADSCATEGORY 2 - BENIGN Interpreting Physician: DR CONCEPCIÓN TAYLOR M.D. Read on: Mar 25 201510:56A Transcribed by: ruma On: Mar 25 2015 2:53P Approved Electronically by: CLAUDIA Jacobs, DR BEEBE on: Mar 25 20153:46P Attending: , Requesting: MARY SEVERINO Requesting Fax: -- Attending Fax: -- Attending ID: Requesting ID: [id number] Report To 1 ID: [id number] Report To 1 Name: WENDY SEVERINO Report To 1 FAX: -- NextGen Order #: Historical Provider MD MCNAIR MAMMO PROCEDURES Humaira l Result documented in this encounter Visit Diagnoses Diagnosis Other screening mammogram Solitary cyst of breast documented in this encounter Care Teams President Celebrity Acquistion Relationship Specialty Start Date End Date Francisco Long MD PCP - General 09/19/13 02/22/17 documented as of this encounter
--- OUTSIDE RECORDS SUMMARY | 2024-11-16 13:14 | XMS_ITS | Encounter Summary ---
Author Organization [facility] Healthcare Address [address] [place] [address] Care Team Providers Care Rn Digestive Name Role Phone Inez Long MD Primary Care Provider Encounter Details Date Type Department Care Team (Late st Contact Info) Description 03/28/2016 10:27 AM CDT - 03/28/2016 11:59 PM T Hospital Encounter [facility] Inez Hauser MD [address] [place] [address] Encounter for screening mammogram for malignant neoplasm of breast; Other abnormal and inconclusive findings on diagnostic imaging of breast; Mammographic calcification found on diagnostic imaging of breast Social History Tobacco Use Types Packs/Day Years Used Date Smoking Tobacco: Never Alcohol Use Standard Drinks/Week Comments No 0 (1 standard drink = 0.6 oz pur e alcohol) Comments Unknown Sex and Gender Information Value Date Recorded Sex Assigned at Not on file 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 RESULT: Two views of each breast obtained, as well as tomosynthesis images for both breasts, compared with 03/25/15 and 01/29/14. ??Heterogeneously dense fibroglandular pattern bilaterally. ??No spiculated mass is seen. ??No suspicious clusters or microcalcifications are evident. ??Circumscribed nodular opacities subareolar region left breast is unchanged from previously, left breast cyst. ??Small circumscribed nodular opacity anterior aspect right breast near the subareolar region is also similar to previously. ??This is low density radiopaque, benign appearance. ??A few benign calcifications are evident. Digital technology was employed plus computer-aided detection software (R2) was utilized in interpretation of these images. ??This facility utilizes a reminder system to notify patients of yearly mammograms. IMPRESSION: 1. BENIGN FINDINGS. ??CONTINUED ANNUAL MAMMOGRAPHIC FOLLOW UP RECOMMENDED. BI RADS CATEGORY 2 ??BENIGN FINDING. Interpreting Physician: ??MARIAH LYLE M.D. ??Read on: ??May ??3 2015 11:26A Transcribed by: ??vam ??On: May ??3 2016 ??1:57P Approved Electronically by: ??MARIAH LYLE M.D. ??on: ??May ??3 2016 ??9:41P Attending: ??DR INEZ LONG Requesting: ??DR INEZ LONG Requesting Fax: ??[phone] Attending Fax: ??[phone] Attending ID: ??[id number] Requesting ID: ??[id number] Report To 1 ID: ??[id number] Report To 1 Name: ??DR INEZ LONG Report To 1 FAX: ??[phone] NextGen Order #: Procedure Note Provider, MD Annabelle - 03/20/2017 Vm Mammogram Performed by: LAURIE SCREENING MAMM W CATHY BI Acc#: [id number] Screening Mamm Bi Acc#: [id number] DATE OF EXAM: Mar 28 2016 CLINICAL HISTORY: Routine screening. RESULT: Two views of each breast obtained, as well as tomosynthesis images forboth breasts, compared with 03/25/15 and 01/29/14. Heterogeneously densefibroglandular pattern bilaterally. No spiculated mass is seen. Nosuspicious clusters or microcalcifications are evident. Circumscribednodular opacities subareolar region left breast is unchanged frompreviously, left breast cyst. Small circumscribed nodular opacityanterior aspect right breast near the subareolar region is also similar topreviously. This is low density radiopaque, benign appearance. A fewbenign calcifications are evident. Digital technology was employed pluscomputer-aided detection software (R2) was utilized in interpretation ofthese images. This facility utilizes a reminder system to notify patientsof yearly mammograms. IMPRESSION: 1. BENIGN FINDINGS. CONTINUED ANNUAL MAMMOGRAPHIC FOLLOW UP RECOMMENDED.BI RADS CATEGORY 2 BENIGN FINDING. Interpreting Physician: MARIAH LYLE M.D. Read on: Mar 28 2016 11:26A Transcribed by: lynne On: Mar 28 2016 1:57P Approved Electronically by: MARIAH LYLE M.D. on: Mar 28 2016 9:41P Attending: DR INEZ LONG Requesting: DR INEZ LONG Requesting Attending Attending ID: [id number] Requesting ID: [id number] Report To 1 ID: [id number] Report To 1 Name: DR INEZ LONG Report To 1 FAX: [phone] NextGen Order #: us Historical Provider MD MCNAIR MAMMO PROCEDURES Humaira l Result documented in this encounter Visit Diagnoses Diagnosis Encounter for screening mammogram for malignant neoplasm of breast Other abnormal and inconclusive findings on diagnostic imaging of breast Mammographic calcification found on diagnostic imaging of breast documented in this encounter Care Teams Rn Digestive Relationship Specialty Start Date End Date Inez Long MD PCP - General 09/19/13 02/22/17 documented as of this encounter
--- OUTSIDE RECORDS SUMMARY | 2024-11-16 13:14 | XMS_ITS | Encounter Summary ---
Author Organization [facility] Healthcare Address [address] [place] [address] Care Team Providers Care Naval Police Coxswain Name Role Phone Francisco Long MD Primary Care Provider [phone] Encounter Details Date Type Department Care Team (Late st Contact Info) Description 10/20/2014 10:41 AM MANAGER EMBALMER FUNERAL DIRECTOR - 10/20/2014 11:59 PM MANAGER EMBALMER FUNERAL DIRECTOR Hospital Encounter [facility] CLINCONV Francisco Long MD [address] [place] [address] [address] Type 2 or unspecified type diabetes mellitus, uncontrolled; Pain in joint; Pain in soft tissues of limb Social History Tobacco Use Types Packs/Day Years Used Date Smoking Tobacco: Never Alcohol Use Standard Drinks/Week Comments No 0 (1 standard drink = 0.6 oz pur e alcohol) Comments Unknown Sex and Gender Information Value Date Recorded Sex Assigned at Not on file 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
--- OUTSIDE RECORDS SUMMARY | 2024-11-16 13:14 | XMS_ITS | Encounter Summary ---
Author Organization [facility] Healthcare Address [address] [place] [address] Care Team Providers Care Deburrer Strip Name Role Phone Unavailable Primary Care Provider Unavailabl e Encounter Details Date Type Department Care Team (Late st Contact Info) Description 06/22/2008 12:01 AM CDT - 06/22/2008 11:59 PM CDT Hospital Encounter [facility] Tiff Harper MD [address] [place] [address] [address], [place] [address] Social History Tobacco Use Types Packs/Day Years Used Date Smoking Tobacco: Never Assessed Comments Unknown Sex and Gender Information Value Date Recorded Sex Assigned at Not on file 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
--- OUTSIDE RECORDS SUMMARY | 2024-11-16 13:14 | XMS_ITS | Encounter Summary ---
Author Organization [facility] Healthcare Address [address] [place] [address] Care Team Providers Care County Director Welfare Name Role Phone Francisco Long MD Primary Care Provider [phone] Encounter Details Date Type Department Care Team (Late st Contact Info) Description 02/23/2016 2:55 PM CDT - 02/23/2016 11:59 PM CDT Hospital Encounter [facility] CLINCONV Francisco Long MD [address] [place] [address] Anemia Social History Tobacco Use Types Packs/Day Years Used Date Smoking Tobacco: Never Alcohol Use Standard Drinks/Week Comments No 0 (1 standard drink = 0.6 oz pur e alcohol) Comments Unknown Sex and Gender Information Value Date Recorded Sex Assigned at Not on file 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
--- OUTSIDE RECORDS SUMMARY | 2024-11-16 13:14 | XMS_ITS | Encounter Summary ---
Author Organization [facility] Healthcare Address [address] [place] [address] Care Team Providers Care Payment Processor Name Role Phone Francisco Long MD Primary Care Provider [phone] Encounter Details Date Type Department Care Team (Late st Contact Info) Description 11/29/2011 8:45 AM QUALITY ENG - 11/29/2011 11:59 PM QUALITY ENG Hospital Encounter [facility] CLINCONV Francisco Long MD [address] [place] [address] [address] Other screening mammogram Social History Tobacco Use Types Packs/Day Years Used Date Smoking Tobacco: Never Assessed Comments Unknown Sex and Gender Information Value Date Recorded Sex Assigned at Not on file Legal Sex Female 12:21 PM QUALITY ENG Gender Identity Not on file Sexual Orientation Not on file documented as of this encounter Plan of Treatment Not on file documented as of this encounter Visit Diagnoses Diagnosis Other screening mammogram documented in this encounter Care Teams Payment Processor Relationship Specialty Start Date End Date Francisco Long MD PCP - General 03/10/11 09/18/13 documented as of this encounter
--- OUTSIDE RECORDS SUMMARY | 2024-11-16 13:14 | XMS_ITS | Encounter Summary ---
Author Organization [facility] Healthcare Address [address] [place] [address] Care Team Providers Care Oyster Culturist Name Role Phone Inez Long MD Primary Care Provider [phone] Encounter Details Date Type Department Care Team (Late st Contact Info) Description 07/17/2014 3:35 PM CDT - 07/17/2014 11:59 PM CDT Hospital Encounter [facility] Inez Hauser MD [address] [place] [address] Pain in joint, lower leg; Osteoarthrosis involving lower leg; Effusion of lower leg joint; Derangement of anterior horn of lateral meniscus Social History Tobacco Use Types Packs/Day Years Used Date Smoking Tobacco: Never Alcohol Use Standard Drinks/Week Comments No 0 (1 standard drink = 0.6 oz pur e alcohol) Comments Unknown Sex and Gender Information Value Date Recorded Sex Assigned at Not on file 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 Gender Identity Not on file Sexual [...] Procedure Name Priority Date/Time Associated Diagnosis Comments MRI LOWER EXTREMITY JOINT W CONTRAST Routine 07/17/2014 4:42 PM CDT MRI LOWER EXTREMITY JOINT W CONTRAST Routine 07/17/2014 4:41 PM CDT documented in this encounter Results * MRI Lower Extremity Joint W Contrast (07/17/2014 4:42 PM CDT) Anatomical Region Laterality Modality N/A Magnetic Resonan ce 07/17/2014 4:42 PM CDT Narrative 07/20/2014 10:37 AM CDT MRI KNEE - RIGHT Acc#: ??[id number] DATE OF EXAM: ??Jul 17 2014 CLINICAL HISTORY: Chronic knee pain which has worsened over the last three months. RESULT: TECHNIQUE: Axial PD fat sat; sagittal PD fat sat and PD; coronal PD fat sat and PD. FINDINGS: Severe tricompartment osteoarthritis is manifested by joint space narrowing, irregularity of the articular surfaces, and marginal osteophyte formation. ??A small knee joint effusion is seen. ??Increased signal is noted in the posterior aspect of the medial meniscus which touches the articular surface on greater than two slices, consistent with an undersurface meniscal tear. ??Complete cartilage loss with some flattening of the articular surface is noted involving the medial femoral condyle. ??Cystic change is noted in the medial femoral condyle. Cartilaginous thinning is noted involving both the lateral femoral condyle and the cartilage over the tibial plateau. 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 ??The patellar tendon is intact. ??The medial collateral, lateral collateral, and posterior cruciate ligaments appear intact. ??Only a few fibers of the anterior cruciate ligament are well seen. ??No significant muscular atrophy is noted. IMPRESSION: 1. MODERATE TO SEVERE TRICOMPARTMENT OSTEOARTHRITIS WITH REGIONS OF CARTILAGINOUS LOSS AND THINNING WITH FINDINGS MOST PRONOUNCED INVOLVING THE MEDIAL FEMORAL CONDYLE. 2. UNDERSURFACE TEAR OF THE POSTERIOR ASPECT OF THE MEDIAL MENISCUS. 3. THE FIBERS OF THE ANTERIOR CRUCIATE LIGAMENT ARE NOT WELL SEEN WITH ONLY A FEW FIBERS IDENTIFIED. ??THIS MAY BE SECONDARY TO A CHRONIC TEAR. Interpreting Physician: ??ALEC JOLLY M.D. ??Read on: ??Jul 20 2014 9:17A Transcribed by: ??amador ??On: Jul 20 2014 ??9:58A Approved Electronically by: ??ALEC JOLLY M.D. ??on: ??Jul 20 2014 10:37A Ordering DR: DR INEZ LONG Attending DR: DR INEZ LONG Procedure Note Provider, Annabelle, - 03/20/2017 MRI KNEE - RIGHT Acc#: [id number] DATE OF EXAM: Jul 17 2014 CLINICAL HISTORY: Chronic knee pain which has worsened over the last three months. RESULT: TECHNIQUE: Axial PD fat sat; sagittal PD fat sat and PD; coronal PD fat sat andPD. FINDINGS: Severe tricompartment osteoarthritis is manifested by joint spacenarrowing, irregularity of the articular surfaces, and marginal osteophyteformation. A small knee joint effusion is seen. Increased signal isnoted in the posterior aspect of the medial meniscus which touches thearticular surface on greater than two slices, consistent with anundersurface meniscal tear. Complete cartilage loss with some flatteningof the articular surface is noted involving the medial femoral condyle.Cystic change is noted in the medial femoral condyle. Cartilaginousthinning is noted involving both the lateral femoral condyle and thecartilage over the tibial plateau. Grade 2/3 chondromalacia patella isnoted involving both the medial and lateral patellar facets. The patellartendon is intact. The medial collateral, lateral collateral, andposterior cruciate ligaments appear intact. Only a few fibers of theanterior cruciate ligament are well seen. No significant muscular atrophyis noted. IMPRESSION: 1. MODERATE TO SEVERE TRICOMPARTMENT OSTEOARTHRITIS WITH REGIONS OFCARTILAGINOUS LOSS AND THINNING WITH FINDINGS MOST PRONOUNCED INVOLVINGTHE MEDIAL FEMORAL CONDYLE. 2. UNDERSURFACE TEAR OF THE POSTERIOR ASPECT OF THE MEDIAL MENISCUS. 3. THE FIBERS OF THE ANTERIOR CRUCIATE LIGAMENT ARE NOT WELL SEEN WITHONLY A FEW FIBERS IDENTIFIED. THIS MAY BE SECONDARY TO A CHRONIC TEAR. Interpreting Physician: ALEC JOLLY M.D. Read on: Jul 20 20149:17A Transcribed by: amador On: Jul 20 2014 9:58A Approved Electronically by: ALEC JOLLY M.D. on: Jul 20 201410:37A Ordering DR: DR INEZ LONG Attending DR: DR INEZ LONG us Historical Provider MD MCNAIR MRI PROCEDURES Final Result * MRI Lower Extremity Joint W Contrast (07/17/2014 4:41 PM CDT) Anatomical Region Laterality Modality N/A Magnetic Resonan ce 07/17/2014 4:41 PM CDT Narrative 07/20/2014 10:37 AM CDT MRI KNEE - LEFT Acc#: ??[id number] DATE OF EXAM: ??Jul 17 2014 CLINICAL HISTORY: Chronic knee pain. ??Patient recently stepped wrong and felt a sharp pain in the knee approximately one week ago. RESULT: TECHNIQUE: Axial PD fat sat; sagittal PD fat sat and PD; coronal PD fat sat and PD. FINDINGS: A moderate knee joint effusion is seen. ??Moderate to severe tricompartment osteoarthritis is manifested by joint space narrowing, flattening of the femoral condyles, and marginal osteophyte formation. Cartilaginous thinning is most pronounced over the medial femoral condyle. ??Grade 2/3 chondromalacia patella involves both the medial and lateral patellar facets. ??A knee joint effusion is seen. ??Increased signal is noted involving the anteromedial aspect of the lateral meniscus which touches the articular surface on greater than two slices, consistent with a tear. ??The anterior cruciate, posterior cruciate, medial collateral, and lateral collateral ligaments are intact. ??The patellar tendon is unremarkable. IMPRESSION: 1. MODERATE TO SEVERE TRICOMPARTMENT OSTEOARTHRITIS WITH FINDINGS MOST PRONOUNCED INVOLVING THE MEDIAL KNEE JOINT SPACE. 2. TEAR OF THE ANTERIOR MEDIAL ASPECT OF THE LATERAL MENISCUS. 3. SMALL KNEE JOINT EFFUSION. Interpreting Physician: ??ALEC JOLLY M.D. ??Read on: ??Jul 20 2014 9:20A Transcribed by: ??amador ??On: Jul 20 2014 10:03A Approved Electronically by: ??ALEC JOLLY M.D. ??on: ??Jul 20 2014 10:37A Ordering DR: DR INEZ LONG Attending DR: DR INEZ LONG Procedure Note Provider, MD Annabelle - 03/20/2017 MRI KNEE - LEFT Acc#: [id number] DATE OF EXAM: Jul 17 2014 CLINICAL HISTORY: Chronic knee pain. Patient recently stepped wrong and felt a sharp painin the knee approximately one week ago. RESULT: TECHNIQUE: Axial PD fat sat; sagittal PD fat sat and PD; coronal PD fat sat andPD. FINDINGS: A moderate knee joint effusion is seen. Moderate to severetricompartment osteoarthritis is manifested by joint space narrowing,flattening of the femoral condyles, and marginal osteophyte formation.Cartilaginous thinning is most pronounced over the medial femoral condyle.Grade 2/3 chondromalacia patella involves both the medial and lateralpatellar facets. A knee joint effusion is seen. Increased signal isnoted involving the anteromedial aspect of the lateral meniscus whichtouches the articular surface on greater than two slices, consistent witha tear. The anterior cruciate, posterior cruciate, medial collateral, andlateral collateral ligaments are intact. The patellar tendon isunremarkable. IMPRESSION: 1. MODERATE TO SEVERE TRICOMPARTMENT OSTEOARTHRITIS WITH FINDINGS MOSTPRONOUNCED INVOLVING THE MEDIAL KNEE JOINT SPACE. 2. TEAR OF THE ANTERIOR MEDIAL ASPECT OF THE LATERAL MENISCUS. 3. SMALL KNEE JOINT EFFUSION. Interpreting Physician: ALEC JOLLY M.D. Read on: Jul 20 20149:20A Transcribed by: amador On: Jul 20 2014 10:03A Approved Electronically by: ALEC JOLLY M.D. on: Jul 20 201410:37A Ordering DR: DR INEZ LONG Attending DR: DR INEZ LONG us Historical Provider MD MCNAIR MRI PROCEDURES Final Result documented in this encounter Visit Diagnoses Diagnosis Pain in joint, lower leg Osteoarthrosis involving lower leg Effusion of lower leg joint Derangement of anterior horn of lateral meniscus documented in this encounter Care Teams Oyster Culturist Relationship Specialty Start Date End Date Inez Long MD PCP - General 09/19/13 02/22/17 documented as of this encounter
--- OUTSIDE RECORDS SUMMARY | 2024-11-16 13:14 | XMS_ITS | Encounter Summary ---
Author Organization [facility] Healthcare Address [address] [place] [address] Care Team Providers Care Area Field Worker Name Role Phone Francisco Long MD Primary Care Provider [phone] Encounter Details Date Type Department Care Team (Late st Contact Info) Description 04/13/2015 9:25 AM CDT - 04/13/2015 11:59 PM CDT Hospital Encounter [facility] Francisco Long MD [address] [place] [id number] Type 2 or unspecified type diabetes mellitus, uncontrolled; Anemia Social History Tobacco Use Types Packs/Day Years Used Date Smoking Tobacco: Never Alcohol Use Standard Drinks/Week Comments No 0 (1 standard drink = 0.6 oz pur e alcohol) Comments Unknown Sex and Gender Information Value Date Recorded Sex Assigned at Not on file 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
--- OUTSIDE RECORDS SUMMARY | 2024-11-16 13:14 | XMS_ITS | Encounter Summary ---
Author Organization [facility] Address [address] [place] [address] Care Team Providers Care Mess Attendant Name Role Phone Francisco Long MD Primary Care Provider [phone] Encounter Details Date Type Department Care Team (Late st Contact Info) Description 05/11/2017 8:00 AM CDT Lab [facility] [address] [facility] [address] [place] [id number] Social History Tobacco Use Types Packs/Day Years Used Date Smoking Tobacco: Never Alcohol Use Standard Drinks/Week Comments No 0 (1 standard drink = 0.6 oz pur e alcohol) Comments Unknown Sex and Gender Information Value Date Recorded Sex Assigned at Not on file 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
--- OUTSIDE RECORDS SUMMARY | 2024-11-16 13:14 | XMS_ITS | Encounter Summary ---
Author Organization [facility] Healthcare Address [address] [place] [address] Care Team Providers Care Docent Coordinator Name Role Phone Unavailable Primary Care Provider Unavailabl e Encounter Details Date Type Department Care Team (Late st Contact Info) Description 04/29/2007 9:03 AM CDT - 04/29/2007 11:59 PM CDT Hospital Encounter [facility] Tiff Harper MD [address] [place] [address] [address] [address] Social History Tobacco Use Types Packs/Day Years Used Date Smoking Tobacco: Never Assessed Comments Unknown Sex and Gender Information Value Date Recorded Sex Assigned at Not on file 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
--- OUTSIDE RECORDS SUMMARY | 2024-11-16 13:14 | XMS_ITS | Encounter Summary ---
Author Organization [facility] Healthcare Address [address] [place] [address] Care Team Providers Care Reliability Technicians Name Role Phone Francisco Long MD Primary Care Provider [phone] Encounter Details Date Type Department Care Team (Late st Contact Info) Description 05/26/2016 12:02 PM CDT - 05/26/2016 11:59 PM CDT Hospital Encounter [facility] Francisco Long MD [address] [place] [id number] Anemia Social History Tobacco Use Types Packs/Day Years Used Date Smoking Tobacco: Never Alcohol Use Standard Drinks/Week Comments No 0 (1 standard drink = 0.6 oz pur e alcohol) Comments Unknown Sex and Gender Information Value Date Recorded Sex Assigned at Not on file 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
--- OUTSIDE RECORDS SUMMARY | 2024-11-16 13:25 | XMS_ITS | Encounter Summary ---
Author Organization [facility] Address [address] [place] [address] Care Team Providers Care Wares Sorter Name Role Phone Francisco Long MD Primary Care Provider Unavailabl e Encounter Details Date Type Department Care Team (Late st Contact Info) Description 12/13/2023 External Device Data [facility] ABSTRACTION Provider, Abstract NO ADDRESS ON FILE Social History Tobacco Use Types Packs/Day Years Used Date Smoking Tobacco: Never Smokeless Tobacco: Never Alcohol Use Standard Drinks/Week Comments Yes 0 (1 standard drink = 0.6 oz pur e alcohol) rare Sex and Gender Information Value Date Recorded Sex Assigned at Not on file Gender Identity Not on file Sexual Orientation Not on file documented as of this encounter Plan of Treatment Upcoming Encounters Date Type Department Care Team (Late st Contact Info) Description 03/19/2025 10:45 AM CDT Appointment [facility] [address] [address] [place] [address] Caron Mohan MD [address] [place] [phone] 03/19/2025 11:30 AM CDT Office Visit [facility] Oncology and Hematology [address] [facility] [address] [place] [address] Caron Mohan MD [address] [place] [id number] [place] [address] [facility] [address] [place] [address] documented as of this encounter Visit Diagnoses Not on filedocumented in this encounter Care Teams Wares Sorter Relationship Specialty Start Date End Date Francisco Long MD PCP - General Internal Medicine 06/27/18 documented as of this encounter
--- OUTSIDE RECORDS SUMMARY | 2024-11-16 13:25 | XMS_ITS ---
Author Organization [facility] Address [address] [place] [address] Phone Care Team Providers Care Medicare Sales Representative Name Role Phone Francisco Long MD Primary Care Provider Unavailabl e Active Problems Problem Noted Date Diagnosed Date Vitamin D deficiency 02/10/2019 Rheumatoid arthritis involvi ng multiple sites with positive rheumatoid factor 12/11/2018 Iron deficiency anemia 12/11/2018 History of endometrial cancer 12/11/2018 Personal history of DVT (deep vein thrombosis) 0 12/11/2018 Malignant neoplasm of upper- inner quadrant of left breast in female, estrogen receptor positive 10/01/2018 Overview (06/09/2019): Stage: Clinical T1 N0; pT1c snN1mi Date of diagnosis: 09/23/18 Diagnosis: LEFT IDC ER(+) MA(+) Her 2 (-) Surgeon: Taylor Surgery: 11/22/18 left lump/SLN Medical Oncologist: Kimberlee Chemotherapy: none Radiation Oncologist: Dr. John Ag office at [facility] Radiation: Hormonal therapy: Femara Treatment Summary and Survivorship Plan mailed to home for review. Marked as complete on 06/09/19. Patient is encouraged to call the office with any additional questions or concerns. Enma Verdugo RN BS BSN Breast Health Nurse Nav[facility] Breast lump 09/13/2018 Current Oncology Plans No current plan information found. Past Plans No past plan information found. Radiation Treatments * No radiation treatments are documented for this patient in [facility]. Treatments may have been administered in another system. Lifetime Dose Tracking * Chemical Lifetime Dose Automatic Entry Manual Entr y Effective Dose 7.8 mSv 7.8 mSv 0 mSv Total DLP 519 DLP 519 DLP 0 DLP CTDIvol Max 10.9 mGy 10.9 mGy 0 mGy CTDIvol Min 10.9 mGy 10.9 mGy 0 mGy Treatment Summaries Malignant neoplasm of upper-inner quadrant of left breast in female, estrogen receptor positive* Breast Cancer Survivorship Care Plan Provided by Cindy on 06/09/19 General Information Patient Name: Jolene Cedillo Patient : 1945 Care Team Medical Oncologist: Dr. Caron Mohan Surgeon: Dr. Ita Vazquez Radiation Oncologist: Dr. John Ag [facility] Primary Care Physician: Dr. Francisco Long biochemistry teacher Physician: Dr. Olivia Bolden Stage: Clinical T1 N0; pT1c snN1mi Date of diagnosis: 09/23/18 Diagnosis: Left Invasive Ductal Carcinoma ER(+) MA(+) Her 2 (-) Treatment Summary Chemotherapy Not indicated; Oncotype Dx Recurrence Score = 7, no benefit to chemotherapy Dates: 12/24/18 Radiation Type: External Beam Radiation Site: Left Dates: completed 01/29/19 Surgery Lumpectomy - Left with sentinel lymph node biopsy involving micrometastatic carcinoma in one of two lymph nodes ([id number]). Date: 11/22/18 Endocrine 2.5mg Femara - take one tablet by mouth daily Date: Started 01/2019 Familial Cancer Risk Assessment Patient to consider genetic testing due to history of breast and endometrial cancer Potential late effects of treatment(s): Surgical Treatment: These are some side effects that may be a result of your breast surgery. You may have one or more of these problems or you may not experience any of these problems. Please contact your doctor if you have: A collection of fluid in the area of surgery that does not go away. Scars in the area of surgery or internally that may cause difficulty with movement. Pain in the area of surgery that does not go away after the site is healed. This may last for a long period of time. Difficulty in moving your shoulder and/or arm on the side of your surgery. Numbness, tingling, pain or weakness in the arm or hand of the side of your surgery. A clicking sound, accompanied by pain that happens when you raise your arm. Swelling or water retention in the hand, arm or shoulder region on the side of your surgery. Some people may experience swelling in their chest or back. The swelling may come and go or it may not go away. Numbness at the surgery site. BREAST CANCER RECURRENCE SCREENING RECOMMENDATIONS After treatment for breast cancer, follow-up care is important to maintain good health, manage any side effects from treatment, watch for signs of reoccurrence, and screen for other types of cancer. Regular physical examinations and other medical tests help monitor your recovery during the coming months and years. Be sure to ask about any concerns you have about your physical or emotional health. Any new, unusual and/or persistent symptoms should be brought to the attention of your provider In general, the following screening tests and schedule are recommended: Medical history and physical examination. Visit your medical oncologist every 3 to 6 months for thefirst 3 years after the first treatment, every 6 to 12 months for the next 2 years, and then once each year thereafter Mammography. Schedule a mammogram 1 year after the first mammogram that led to your diagnosis. However, if you have had radiation therapy, wait 6 months after your last treatment. After this first post-treatment mammogram, mammography is recommended at least every year, either on one or both breasts depending on the type of surgery you received Breast self-examination. Perform breast self-examination every month. This procedure is not a substitute for a mammogram. Genetic counseling. Another important part of follow-up care is to tell your doctor if you have a history of cancer in your family because you may benefit from genetic counseling. Endocrine therapy. If it is a part of your treatment plan, continue endocrine therapy as directed by your oncologist. (i.e. Tamoxifen, Femera, Arimidex, Aromasin) Bone Density. Schedule a bone density test every 2 years, particularly if you are taking an aromatase inhibitor (Letrozole, Anastrazole, Exemestane) Pap/pelvic exam. As indicated by your provider; cervical cancer screening Colon screening (colonoscopy) every 5-10 years or per provider recommendation Continue your routine visits to your primary care physician for non-cancer related preventative care. Letrozole (Femara) is a drug used as hormone therapy for the treatment of breast cancer, and included in a group of drugs called aromatase inhibitors due to its mechanism of action. Estrogen and progesterone are female sex hormones that promote cancer growth. While in menstruating women, these hormones are produced in the ovaries, in menopausal women, it is produced in the fat tissue through a process known as aromatase. Therefore, letrozole interferes with this process in order to decrease thelevels of estrogen in the body and, consequently, stop or slow down cancer growth, or decrease the probability of cancer recurrence after surgery. Letrozole is only effective in hormone sensitive or hormone receptor positive breast cancer and its use is limited to women after menopause. SIDE EFFECT MANAGEMENT TIPS Bone and joint pain Talk to your doctor as soon as you have bone or joint pain. Don't let the pain become intolerable. You may be able to switch to a different hormonal therapy medicine that may ease your pain. Pain medicines, such as naproxen and ibuprofen may help you manage bone and joint pain. Some complementary and holistic medicine techniques have been shown to ease bone pain, including acupuncture, chiropractic therapy, massage, music therapy, and hypnosis. Hot or cold packs, or a combination of the two, can soothe sore areas. Heat can help reduce muscle spasms and cold can help reduce inflammation. Eat a healthy diet that includes enough calcium and vitamin D to keep your bones as strong as they can be. Bone health- Vitamin D 1000 units a day, calcium rich diet (milk, cheese, yogurt, leafy greens), iflactose intolerant, recommend Calcium 600mg daily, weight bearing exercises such as walking or aerobics encouraged. Bone density exams every two years. Maintain a healthy weight to ease stress and strain on your joints. Exercise regularly. Exercise keeps your bones strong and helps your joints stay flexible. Exercise can ease the joint pain caused by aromatase inhibitors. Recommend an exercise regimen of approximately 5-6 days a week and maintaining healthy weight. Goal is to achieve 150 minutes of exercise per week. These changes could result in weight loss which is preventive and also good for overall health. Lifestyle modifications could have a modest impact on risk reduction as well. Recommend a healthy diet including low fat, high fiber foods, low sodium and low cholesterol foods. To reduce levels of inflammation, aim for an overall healthy diet. An eating plan that closely follows the tenets of anti-inflammatory eating is the Mediterranean diet, which is high in fruits, vegetables, nuts, whole grai ns, fish, and healthy oils Hot flashes Talk to your doctor as soon as you start having hot flashes. Don't wait until they become severe. You may be able to stop your treatment for a week or two, restart it at a lower dose, and slowly increase it. Your body may be better able to adjust to the changes this way. You also may be able to switch to a different medicine that doesn't cause you as many hot flashes. Avoid hot flash triggers such as stress, cigarettes, alcohol, caffeine, diet pills, spicy food, hotfood or drink, hot tubs, saunas, hot showers, hot rooms, and hot weather. Reduce the fat in your diet. Over time, a low-fat diet helps some people with hot flashes. Losing excess weight helps, but losing too much weight, or being too thin, can make hot flashes worse. Dress in layers so you can peel off one layer after another as you get warmer. Don't wear heavy or thick fabrics such as wool, synthetics, or silk. Wear loose and airy fabrics such as cotton, linen, and juana. Keep ice water nearby so you can sip it to cool down. Pack a small cooler full of cold water to carry with you. Lower the room temperature by turning down the thermostat, turning on the air conditioner, or turning on the ceiling fan. Sleep in cotton pajamas or a nightgown. If you have hot flashes and perspire at night, the nightclothes are easier to change than the sheets. Put cotton sheets on your bed. Cotton soaks up sweat and dries quickly. Take a cool shower before going to bed. Try 500mg Magnesium BID (twice a day) Consider complementary and holistic therapies. Techniques that may help include meditation, massage, yoga, and acupuncture. Ask your doctor about techniques to help you sleep through the night if your hot flashes are affecting your sleep. Be patient. Your body is going through changes. Once the changes take place, you'll feel more like yourself again. serotonin-norepinephrine reuptake inhibitor (SNRI) such as Effexor or Oxybutynin, a antispasmodics;talk to your physician about these medication possibilities Fatigue Talk to your doctor. You may be able to switch to a different hormonal therapy medicine that may ease your fatigue. Some complementary and holistic medicine techniques have been shown to reduce fatigue, including acupuncture, massage, meditation, martha chi, and yoga. Eat a healthy diet that includes lots of fresh, unprocessed food, including fruits, vegetables, andlean protein. Exercise regularly. Exercise helps improve your stamina and has been shown to ease fatigue. Try a catnap. Beware of long naps, though. You might end up wide awake in the middle of the night. Daytime naps should be no more than 30 minutes, so you won't fall into deep sleep. (Waking up groggyusually means you've napped too long.) If you find you need a nap every day, take it at a regularlyscheduled hour, but try not to nap after 2 p.m. Keep to a routine. Go to bed at the same time each night and get up at the same time each morning. Don't stay in bed after you wake up. Make sure you get enough sleep and that you sleep for the same amount of time each night. Keep a diary of how you feel each day. Keep a daily diary of your fatigue to identify when it's theworst and when it's least troubling. Plan activities during the times you have the most energy. Schedule rest periods when your energy is lowest. Make sure you balance each activity with a rest period if you need it. Organize each day. Figure out what you have to do and when you need to do it. Pacing yourself helpsto conserve your energy. Ask for help. Accept offers of help and goodwill from family and friends. If no one has offered to help and everyone seems too busy, ask for what you need -- even if asking is one of the hardest things for you to do. Get help with little things: taking out the trash, folding the laundry, or paying bills. Keep a list of things you need done so when people ask what they can do, you can give them the list. Keep lists and make notes to remind you of important things if your memory and concentration are affected by fatigue. Also, give yourself more time for activities that take concentration. Be kind to yourself. If you're fatigued, don't beat yourself up because you can't do what you're supposed to do. That browbeating takes energy you can't afford to waste and can add to depression. Do nice things for yourself and give yourself permission to rest and recover, for as long as it takes. Vaginal dryness Can try [place] or Replens over the counter products Daily application of coconut oil or olive oil. Avoid estrogen based vaginal creams such as Estrace. [employer] Guidelines on Nutrition and Physical Activity For Cancer Prevention 1. Achieve and maintain a healthy weight. Avoid weight gain during cancer treatment, whether you are at a healthy weight or overweight. Weight loss after recovery from treatment may benefit survivors who are overweight or obese. 2. Be physically active. Studies show that exercise is safe during cancer treatment, and can improve many aspects of health,including muscle strength, balance, fatigue, and depression. Physical activity after diagnosis is linked to living longer and a reduced risk of the cancer returning among people living with cancer, including breast, colorectal, prostate, and ovarian cancer. Aim for 30 min of exercise 5 days a week. 3. Eat a healthy diet, with an emphasis on fruits, vegetables, and whole grains. The most health benefits are associated with a diet high in fruits, vegetables, whole grains, poultry, and fish, and low in refined grains, red meat and processed meat (such as hot dogs), desserts, high-fat dairy products and Haitian fries. Most of the studies about cancer and diet have focused on breast cancer. Studies show that taking vitamins, herbs and other nutritional supplements often does not help cancer patients live longer, and may even shorten life. Before taking any supplement, discuss it with your health care provider. 4. Don't smoke 5. If you drink alcohol, limit your intake. Drink no more than 1 drink per day for women or 2 per day for men. 6. Sunscreen use Exposure to ultraviolet rays is the leading cause of skin cancer. It is important to protect your skin. Sun damage builds up over time. It is important to use sunscreen every day. You should use a sunscreen that is water resistant and has an SPF of 30 or above. Remember to also protect your lips and eyes. 7. Routine blood pressure, cholesterol, and glucose monitoring. While many cancer survivors worry about their cancer coming back most cancer survivors are more likely to develop other chronic medical conditions such as high blood pressure, heart disease, and diabetes. Be sure to start and/or continue to see your primary care physician regularly. 8. Vaccines The flu is a respiratory infection caused by viruses. While most people with the flu get better on their own it can be serious. It can cause many medical complications and sometimes even . Be sure to get an annual influenza vaccine (flu shot). Pneumococcal diseases can cause serious infections in the lungs and bloodstream. A pneumococcal vaccine is recommended for all adults 65 years of age and older. It is also recommended for some younger adults who have chronic health conditions. Be sure and check with your doctor if you need a pneumococcal vaccine. 9. Routine Dental Care Your oral health may be more important than you think. It can contribute to various medical diseases and conditions. Daily oral hygiene helps decrease our risk of tooth decay and gum disease. Be sureto brush twice a day, floss daily, and see your dentist regularly for checkups and cleanings. 10. Eye Health Our eyes are called the windows to the world. Make sure you take good care of your eyes. Adults should have their eyes examined every 2 years until age 60. We should then undergo eye exams yearly. Individuals with contact lenses, glasses, or who are at high risk for eye problems (i.e. diabetes, family history of eye disease) should be seen more frequently.
--- OUTSIDE RECORDS SUMMARY | 2024-11-16 13:25 | XMS_ITS | Encounter Summary ---
Author Organization [facility] Address [address] [place] [address] Care Team Providers Care Lap Winder Name Role Phone Francisco Long MD Primary Care Provider Unavailabl e Reason for Visit * Reason Comments Follow Up 6 MO WITH MMG Encounter Details Date Type Department Care Team (Late st Contact Info) Description 02/25/2024 12:30 PM CDT Office Visit [facility] Oncology and Hematology [address] [place] [phone] Caron Mohan MD [address] [facility] [address] [place], [place] [phone] Rheumatoid arthritis with rheumatoid factor of multiple sites without organ or systems involvement (Primary Dx); Malignant neoplasm of upper-inner quadrant of left breast in female, estrogen receptor positive; Menopause; ER+ (estrogen receptor positive status); Osteopenia of multiple sites; Dietary iron deficiency without anemia Social History Tobacco Use Types Packs/Day Years Used Date Smoking Tobacco: Never Smokeless Tobacco: Never Alcohol Use Standard Drinks/Week Comments Yes 0 (1 standard drink = 0.6 oz pur e alcohol) rare Feeling Safe Answer Date Recorded Fear of Current or Ex-Partner Not on file Emotionally Abused Not on file 02/25/2024 Within the last year, have y ou been kicked, hit, slapped, or otherwise physically hurt by your partner or ex-partner? No 02/25/2024 Sexually Abused Not on file 02/25/2024 Sex and Gender Information Value Date Recorded Sex Assigned at Not on file Gender Identity Not on file Sexual Orientation Not on file documented as of this encounter Last Filed Vital Signs Vital Sign Reading Time Taken Comments Blood Pressure 138/80 02/25/2024 12:31 PM CDT Pulse 79 02/25/2024 11:23 AM CDT Temperature 36.5 ??C (97.7 ??F) 02/25/2024 11:23 AM C DT Respiratory Rate - - Oxygen Saturation 97% 02/25/2024 11:23 AM CDT Inhaled Oxygen Concentration - - Weight 80.7 kg (178 lb) 02/25/2024 11:23 AM CDT Height 170.2 cm (5' 7 ) 02/25/2024 11:23 AM CDT Body Mass Index 27.88 02/25/2024 11:23 AM CDT documented in this encounter Progress Notes * Caron Mohan MD - 02/25/2024 12:32 PM CDT [facility] Oncology and Hematology Date of Service: 02/25/2024 Patient: Jolene Cedillo : 1945 DX - [id number] breast cancer, ER+/OR+/HER2-, NS 6. RX lumpectomy and RT 2017 OncotypeDX RS=7, 11% recurrence, no benefit to chemo. Letrozole started January 2019 - will extend beyond 5 years HPI Ms. Cedillo is a 72 yo woman referred by Dr. Vazquez for adjuvant therapy of breast cancer. Routine mammogram in August 2018 showed an abnormality on the left breast. She had no sx. Biopsy showed cancer and she underwent lumpectomy and SLN on 11/22/18. She is recovering well. Family h/o breast cancer in one aunt. No children. No h/o breast biopsy. H/o endometrial carcinoma, Stage IA, s/p TAHBSO with LND in June [address] Cadena. No h/o HRT. Minimal vaginal bleeding prior to hysterectomy. Noted iron deficiency anemia for 2-3 years. No IV iron or blood transfusion. Just started eating iron rich foods. Taking one iron pill/day - after eating breakfast. No GI issues. Due for colonoscopy. Also taking MTX for RA for about 3 years with good results. She does note fatigue. Nonsmoker, rare ETOH. Retired. is with her today. H/o blood clot after knee surgery. DEXA 2017 at [facility] but unable to access results. INTERVAL HX Tolerating AI well. On MTX for RA - doing well with this No breast concerns. Neg liudmila today Current URI sx treated by PCP Current Outpatient Medications Medication Sig Dispense Refill benzonatate (TESSALON) 100 mg capsule Take 100 mg by mouth 3 times daily. letrozole (FEMARA) 2.5 mg tablet TAKE 1 TABLET(2.5 MG) BY MOUTH DAILY 90 Tablet 3 losartan (COZAAR) 100 mg tablet TAKE 1 TABLET BY MOUTH EVERY DAY calcium carbonate + vitamin D (CALTRATE+D) 600 mg(1,500mg) -400 unit Tablet Take 1 Tablet by mouth daily. 0 methotrexate (RHEUMATREX) 2.5 mg Tablet Take 2.5 mg by mouth every 7 days. 6 tabs on Sunday's OTHER PM Lubricant Eye Ointment Cholecalciferol, Vitamin D3, (VITAMIN D3) 2,000 unit Capsule Take 1 Capsule by mouth daily. No current facility-administered medications for this visit. ROS: Negative except as in HPI PHYSICAL EXAM BP 138/80 Pulse 79 Temp 97.7 ??F (36.5 ??C) Ht 5' 7 (1.702 m) Wt 80.7 kg (178 lb) SpO2 97% BMI 27.88 kg/m?? ECOG PS = 0 General appearance: alert, cooperative, no distress, appears stated age HEENT unremarkable Lungs: clear to auscultation bilaterally Heart: regular rate and rhythm, S1, S2 normal, no murmur, click, rub or gallop Abdomen: soft, non-tender. Bowel sounds normal. No masses, No organomegaly Extremities: no edema Skin: No rashes or lesions Lymph nodes: No adenopathy Neuro: No obvious focal deficit Breasts: right -no masses, skin changes, or nipple changes Left - s/p lumpectomy and SLN and RT, [facility] ASSESSMENT and PLAN Ms. Cedillo is a 78 y.o. woman with [id number] breast cancer, ER+/OR+/HER2-, NS 6. She has had lumpectomy. Dr. John Ag in [place] has completed her radiation. OncotypeDX RS=7, 11% recurrence, no benefit to chemo. Since her tumor is strongly ER/OR positive, I have recommended hormonal Rx with oral aromatase inhibitor. She is tolerating this well. Started January 2019. 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 Liudmila TODAY BIRADS 2 Currently [facility] by labs, imaging, exam Reviewed labs from other MD Low iron but not anemic - rec increase oral iron to daily Vit D = 30, low normal, rec double current dose Bone density checked 2023 - Spine normal, hip -1.5 Vitamin D, exercise reviewed. RTC 6 months TOBACCO COUNSELING She is not a tobacco user. The patient expressed good understanding of the issues discussed, and questions were addressed. Thank you for asking me to assist in the care of your patient. If any further questions or concernsshould arise, please do not hesitate to contact me. Caron Mohan MD documented in this encounter Plan of Treatment Upcoming Encounters Date Type Department Care Team (Late st Contact Info) Description 03/19/2025 10:45 AM CDT Appointment [facility] [address] [place] [phone] Caron Mohan MD [address] [place] [phone] 03/19/2025 11:30 AM CDT Office Visit [facility] Oncology and Hematology [address] [place] [address] Caron Mohan MD [address] [place] [phone] [place] [address] [address] [place] [address] documented as of this encounter Visit Diagnoses Diagnosis Rheumatoid arthritis with rheumatoid factor of multiple sites without organ or systems involvement- Primary Malignant neoplasm of upper-inner quadrant of left breast in female, estrogen receptor positive Menopause Symptomatic menopausal or female climacteric states ER+ (estrogen receptor positive status) Estrogen receptor positive status [ER+] Osteopenia of multiple sites Dietary iron deficiency without anemia Other disorders of iron metabolism documented in this encounter Care Teams Lap Winder Relationship Specialty Start Date End Date Francisco Long MD PCP - General Internal Medicine 06/27/18 documented as of this encounter
--- OUTSIDE RECORDS SUMMARY | 2024-11-16 13:25 | XMS_ITS | Encounter Summary ---
Author Organization [facility] Address [address] [place]: [place] [address] Care Team Providers Care System Software Developer Name Role Phone Francisco Long MD Primary Care Provider Unavailabl e Encounter Details Date Type Department Care Team (Latest Contact Info) Description 02/12/2023 Travel Social History Tobacco Use Types Packs/Day [...] Exposure Response Date Recorded In the last 10 days, have yo u been in contact with someone who was confirmed or suspected to have Coronavirus/COVID-19? No / Unsure 02/12/2023 10:44 AM CDT documented as of this encounter Plan of Treatment Upcoming Encounters Date Type Department Care Team (Late st Contact Info) Description 03/19/2025 10:45 AM CDT Appointment [facility] [address] [place] [address] Caron Mohan MD [address] [place] [phone] 03/19/2025 11:30 AM CDT Office Visit [facility] Oncology and Hematology [address] [place] [phone] Caron Mohan MD [address] [place] [phone] [place] [address] [place] [address] documented as of this encounter Visit Diagnoses Not on filedocumented in this encounter Care Teams System Software Developer Relationship Specialty Start Date End Date Francisco Long MD PCP - General Internal Medicine 06/27/18 documented as of this encounter
--- OUTSIDE RECORDS SUMMARY | 2024-11-16 13:25 | XMS_ITS | Encounter Summary ---
Author Organization [facility] Address [address] [place] [address] Care Team Providers Care Skin Care Technician Name Role Phone Francisco Long MD Primary Care Provider Unavailabl e Reason for Referral * Radiology Services (Routine) - Closed Specialty Diagnoses / Procedures Referred By Halima t Referred To Contact Diagnoses Malignant neoplasm of upper-inner quadrant of left breast in female, estrogen receptor positive Procedures MAMMO DIAG BILAT 3D CATHY W OR WO CAD CHG DIAGNOSTIC MAMMOGRAPHY COMPUTER-AIDED DETCJ BI CHG DIGITAL BREAST TOMOSYNTHESIS BILATERAL Caron Mohan MD [address] [place] [phone] Referral ID Status Reason Start Date Expiration Date Visits Re quested Visits Authorized [id number] Closed 08/15/2023 09/14/2024 1 1 Reason for Visit * Reason Comments Follow Up 6 months Encounter Details Date Type Department Care Team (Late st Contact Info) Description 08/15/2023 12:00 PM CDT Office Visit [facility] ONCOLOGY AND HEMATOLOGY-[place] [address] [facility] [facility] [address] [place] [phone] Caron Mohan MD [address] [place] [address] Malignant neoplasm of upper-inner quadrant of left breast in female, estrogen receptor positive (Primary Dx); Menopause; Rheumatoid arthritis with rheumatoid factor of multiple sites without organ or systems involvement Social History Tobacco Use Types Packs/Day Years Used Date Smoking Tobacco: Never Smokeless Tobacco: Never Tobacco Cessation:Counseling Given: Not Answered Alcohol Use Standard Drinks/Week Comments Yes 0 (1 standard drink = 0.6 oz pur e alcohol) rare Sex and Gender Information Value Date Recorded Sex Assigned at Not on file Gender Identity Not on file Sexual Orientation Not on file documented as of this encounter Last Filed Vital Signs Vital Sign Reading Time Taken Comments Blood Pressure 160/80 08/15/2023 11:45 AM CDT Pulse 85 08/15/2023 11:45 AM CDT Temperature 36.6 ??C (97.8 ??F) 08/15/2023 11:45 AM C DT Respiratory Rate - - Oxygen Saturation 96% 08/15/2023 11:45 AM CDT Inhaled Oxygen Concentration - - Weight 81.6 kg (180 lb) 08/15/2023 11:45 AM CDT Height 170.2 cm (5' 7 ) 08/15/2023 11:45 AM CDT Body Mass Index 28.19 08/15/2023 11:45 AM CDT documented in this encounter Progress Notes * Caron Mohan MD - 08/15/2023 11:57 AM CDT [facility] Oncology and Hematology Date of Service: 08/15/2023 Patient: Jolene Cedillo : 1945 DX - [id number] breast cancer, ER+/[place]+/HER2-, NS 6. RX lumpectomy and RT 2017 OncotypeDX RS=7, 11% recurrence, no benefit to chemo. Letrozole started January 2019 - march extend beyond 5 years HPI Ms. Cedillo [...] clot after knee surgery. DEXA 2017 at [facility] but unable to access results. INTERVAL HX Tolerating AI well. Some muscle aches. On MTX for RA - doing well with this No breast concerns. Current Outpatient Medications Medication Sig Dispense Refill letrozole (FEMARA) 2.5 mg tablet TAKE 1 TABLET(2.5 MG) BY MOUTH DAILY 90 Tablet 3 OTHER PM Lubricant Eye Ointment Cholecalciferol, Vitamin D3, (VITAMIN D3) 2,000 unit Capsule Take 1 Capsule by mouth daily. calcium carbonate + vitamin D (CALTRATE+D) 600 mg(1,500mg) -400 unit Tablet Take 1 Tablet by mouth daily. 0 methotrexate (RHEUMATREX) 2.5 mg Tablet Take 2.5 mg by mouth every 7 days. 6 tabs on losartan (COZAAR) 100 mg tablet TAKE 1 TABLET BY MOUTH EVERY DAY No current facility-administered medications for this visit. ROS: Negative except as in HPI PHYSICAL EXAM BP (!) 160/80 (BP Location: Right arm, Patient Position (BP): Sitting, BP Cuff Size: Adult) Pulse85 Temp 97.8 ??F (36.6 ??C) (Oral) Ht 5' 7 (1.702 m) Wt 81.6 kg (180 lb) SpO2 96% BMI 28.19 kg/m?? ECOG PS = 0 General appearance: [...] s/p lumpectomy and SLN and RT, [facility] at [facility] March 2023 reviewed - CBC and CMP unremarkable SCANS BILATERAL DIAGNOSTIC DIGITAL MAMMOGRAM WITH TOMOSYNTHESIS, CAD 02/12/23 BIRADS 2 ASSESSMENT and PLAN Ms. Cedillo is a 77 y.o. woman with [id number] breast cancer, ER+/[place]+/HER2-, NS 6. She has had lumpectomy. Dr. John Ag in [place] has completed her radiation. OncotypeDX RS=7, 11% recurrence, no benefit to chemo. Since her tumor is strongly ER/MO positive, I have recommended hormonal Rx with oral aromatase inhibitor. She is tolerating this well. Started January 2019. Consider longer than 5 years since N1mi Liudmila January 2023 neg Currently DILLON by labs, imaging, exam Bone density checked Jun 2021, normal - in [place]. Recheck this year ordered, she will get this locally Vitamin D, exercise reviewed. RTC 6 months with [facility] TOBACCO COUNSELING She is not a tobacco [...] Info) Description 03/19/2025 10:45 AM CDT Appointment [facility] [address] [place] [address] Caron Mohan MD [address] [place] [phone] 03/19/2025 11:30 AM CDT Office Visit [facility] Oncology and Hematology [address] [place] [address] Caron Mohan MD [address] [place], [place] [phone] [place] [address] [place] [address] documented as of this encounter Results * MAMMO DIAG BILAT 3D CATHY W OR WO CAD (02/25/2024 11:43 AM CDT) Anatomical Region Laterality Modality Breast Bilateral Mammography 02/25/2024 11:4 3 AM CDT Impressions 02/25/2024 12:25 PM CDT IMPRESSION: No mammographic evidence of malignancy. OVERALL FINAL ASSESSMENT: ?? BI-RADS Category 2: Benign finding(s). RECOMMENDATION: Normal interval follow-up in one year. Findings discussed with the patient. DICTATION LOCATION: ??Cindy Long Narrative 02/25/2024 12:25 PM CDT BILATERAL DIGITAL DIAGNOSTIC MAMMOGRAM WITH TOMOSYNTHESIS AND CAD TECHNIQUE: Images were performed using 2D full field digital mammography with 3D tomosynthesis images. CAD analysis was performed. DATE: 02/25/2024 11:43 AM HISTORY: Left breast cancer status post breast conservation therapy in 2018. History of benign left breast biopsy. COMPARISON: Prior mammograms, dating back to 05/25/2017 and most recently 02/12/2023. BREAST COMPOSITION: The breasts are heterogeneously dense, which may obscure small masses. FINDINGS: Marker from prior benign biopsy is seen in the left breast. There are post-treatment changes in the left breast. There is no suspicious mass, architectural distortion, or microcalcification in either breast. There has been no significant interval change compared with the previous study. Procedure Note Garrison Mccallum MD - 02/25/2024 BILATERAL DIGITAL DIAGNOSTIC MAMMOGRAM WITH TOMOSYNTHESIS AND CAD TECHNIQUE: Images were performed using 2D full field digital mammography with 3D tomosynthesis images. CAD analysis was performed. DATE: 02/25/2024 11:43 AM HISTORY: Left breast cancer status post breast conservation therapy in 2018. History of benign left breast biopsy. COMPARISON: Prior mammograms, dating back to 05/25/2017 and most recently 02/12/2023. BREAST COMPOSITION: The breasts are heterogeneously dense, which may obscure small masses. FINDINGS: Marker from prior benign biopsy is seen in the left breast. There are post-treatment changes in the left breast. There is no suspicious mass, architectural distortion, or microcalcification in either breast. There has been no significant interval change compared with the previous study. IMPRESSION: No mammographic evidence of malignancy. OVERALL FINAL ASSESSMENT: BI-RADS Category 2: Benign finding(s). RECOMMENDATION: Normal interval follow-up in one year. Findings discussed with the patient. DICTATION LOCATION: [facility] Caron Mohan MD MAMMO ORDERABLES documented in this encounter Visit Diagnoses Diagnosis Malignant neoplasm of upper-inner quadrant of left breast in female, estrogen receptor positive- Primary Menopause Symptomatic menopausal or female climacteric states Rheumatoid arthritis with rheumatoid factor of multiple sites without organ or systems involvement Malignant neoplasm of upper-inner quadrant of left breast in female, estrogen receptor positive documented in this encounter Care Teams Skin Care Technician Relationship Specialty Start Date End Date Francisco Long MD PCP - General Internal Medicine 06/27/18 documented as of this encounter
--- OUTSIDE RECORDS SUMMARY | 2024-11-16 13:25 | XMS_ITS | Encounter Summary ---
Author Organization [facility] Address [address] [place] [address] Care Team Providers Care Central Office Mechanic Name Role Phone Francisco Long MD Primary Care Provider Unavailabl e Reason for Visit * Reason Onset Date Comments DEXA order 02/15/2024 Encounter Details Date Type Department Care Team (Late st Contact Info) Description 02/15/2024 Telephone [facility] ONCOLOGY AND HEMATOLOGY - [place] [address] [facility] [address] [place] [phone] Caron Mohan MD [address] [facility] [address] [place] [address] DEXA order Social History Tobacco Use Types Packs/Day Years [...] encounter Miscellaneous Notes * Telephone Encounter - Elvira Ivy RN - 02/15/2024 9:28 AM CDT [facility] department called asking for DEXA order. I faxed it to them. documented in this encounter Plan of Treatment Upcoming Encounters Date Type Department Care Team (Late st Contact Info) Description 03/19/2025 10:45 AM CDT Appointment [facility] [address] [place] [address] Caron Mohan MD [address] [place] [address] 03/19/2025 11:30 AM CDT Office Visit [facility] Oncology and Hematology [address] [place] [address] Caron Mohan MD [address] [place], [place] [phone] [place] [address] [place] [address] documented as of this encounter Visit Diagnoses Not on filedocumented in this encounter Care Teams Central Office Mechanic Relationship Specialty Start Date End Date Francisco Long MD PCP - General Internal Medicine 06/27/18 documented as of this encounter
--- OUTSIDE RECORDS SUMMARY | 2024-11-16 13:25 | XMS_ITS | Encounter Summary ---
Author Organization [facility] Address [address] [place] [address] Care Team Providers Care Measurement Specialist Name Role Phone Francisco Long MD Primary Care Provider Unavailabl e Encounter Details Date Type Department Care Team (Late st Contact Info) Description 12/04/2023 External Device Data ST[facility] ABSTRACTION Provider, Abstract [...] Info) Description 03/19/2025 10:45 AM CDT Appointment [facility] [address] [address] [place] [address] Caron Mohan MD [address] [place] [address] 03/19/2025 11:30 AM CDT Office Visit [facility] Oncology and Hematology [address] [facility] [address] [place] [address] Caron Mohan MD [address] [place] [phone] [place] [address] [facility] [address] [place] [address] documented as of this encounter Visit Diagnoses Not on filedocumented in this encounter Care Teams Measurement Specialist Relationship Specialty Start Date End Date Francisco Long MD PCP - General Internal Medicine 06/27/18 documented as of this encounter
--- OUTSIDE RECORDS SUMMARY | 2024-11-16 13:25 | XMS_ITS | Encounter Summary ---
Author Organization [email or web address] Address [address] [place] [address] Care Team Providers Care Clinical Account Liaison Name Role Phone Francisco Long MD Primary Care Provider Unavailabl e Reason for Referral * Radiology Services (Routine) - Closed Specialty Diagnoses / Procedures Referred By Halima garcia Referred To Contact Diagnoses Malignant neoplasm of upper-inner quadrant of left breast in female, estrogen receptor positive Procedures MAMMO DIAG BILAT 3D CATHY W OR WO CAD CHG DIAGNOSTIC MAMMOGRAPHY COMPUTER-AIDED DETCJ BI CHG DIGITAL BREAST TOMOSYNTHESIS BILATERAL Caron Mohan MD [address] [place] [address] Referral ID Status Reason Start Date Expiration Date Visits Re quested Visits Authorized [id number] Closed 08/15/2023 09/14/2024 1 1 Reason for Visit * Radiology Services (Routine) - Closed Specialty Diagnoses / Procedures Referred By Halima garcia Referred To Contact Diagnoses Malignant neoplasm of upper-inner quadrant of left breast in female, estrogen receptor positive Procedures MAMMO DIAG BILAT 3D CATHY W OR WO CAD CHG DIAGNOSTIC MAMMOGRAPHY COMPUTER-AIDED DETCJ BI CHG DIGITAL BREAST TOMOSYNTHESIS BILATERAL Caron Mohan MD [address] [facility] [address] [place] [address] Referral ID Status Reason Start Date Expiration Date Visits Re quested Visits Authorized [id number] Closed 08/15/2023 09/14/2024 1 1 Encounter Details Date Type Department Care Team (Latest Contact Info) Description 02/25/2024 11:22 AM CDT - 02/25/2024 11:59 PM CDT Hospital Encounter [facility] [address] [place] [address] Caron Mohan MD [address] [place] [address] Discharge Disposition: Home or Self Care Social [...] Sig Dispensed Refills Start Date End Date benzonatate (TESSALON) 100 mg capsule Take 100 mg by mouth 3 times daily. letrozole (FEMARA) 2.5 mg tabletIndications:Clay zambrano neoplasm of upper-inner quadrant of left breast in female, estrogen receptor positive,Menopause,ER+ (estrogen receptor positive status) Take 1 Tablet (2.5 mg) by mouth daily. 90 Tablet 3 02/25/2024 losartan (COZAAR) 100 mg tablet TAKE 1 TABLET BY MOUTH EVERY DAY 09/24/2020 OTHER PM Lubricant Eye Ointment Cholecalciferol, Vitamin D3, (VITAMIN D3) 2,000 unit CapsuleIndications:Kimmie min D deficiency Take 1 Capsule by mouth daily. 05/26/2019 calcium carbonate + vitamin D (CALTRATE+D) 600 mg(1,500mg) -400 unit Tablet Take 1 Tablet by mouth daily. 0 02/12/2019 methotrexate (RHEUMATREX) 2.5 mg Tablet Take 2.5 mg by mouth every 7 days. 6 tabs on Sunday' documented as of this encounter Plan of Treatment Upcoming Encounters Date Type Department Care Team (Late st Contact Info) Description 03/19/2025 10:45 AM CDT Appointment [facility] [address] [place] [address] Caron Mohan MD [address] [place] [address] 03/19/2025 11:30 AM CDT Office Visit [facility] Oncology and Hematology [address] [place] [address] Caron Mohan MD [address] [place] [address] [place] [address] [facility] [address] [place] [address] documented as of this encounter Procedures Procedure Name Priority Date/Time Associated Diagnosis Comments MAMMO DIAG BILAT 3D CATHY W OR WO CAD Routine 02/25/2024 11:43 AM CDT Malignant neoplasm of upper-inner quadrant of left breast in female, estrogen receptor positive documented in this encounter Results * MAMMO DIAG BILAT [...] Findings discussed with the patient. DICTATION LOCATION: [facility] Caron Mohan MD MAMMO ORDERABLES documented in this encounter Visit Diagnoses Diagnosis Malignant neoplasm of upper-inner quadrant of left breast in female, estrogen receptor positive documented in this encounter Care Teams Clinical Account Liaison Relationship Specialty Start Date End Date Francisco Long MD PCP - General Internal Medicine 06/27/18 documented as of this encounter
--- OUTSIDE RECORDS SUMMARY | 2024-11-16 13:25 | XMS_ITS | Encounter Summary ---
Author Organization [facility] Address [address] [place] [address] Care Team Providers Care Bar Gauger And Lubricator Tender Name Role Phone Francisco Long MD Primary Care Provider Unavailabl e Reason for Referral * Radiology Services (Routine) - Open Specialty Diagnoses / Procedures Referred By Halima t Referred To Contact Diagnoses Malignant neoplasm of upper-inner quadrant of left breast in female, estrogen receptor positive Procedures MAMMO 3D CATHY DIAGNOSTIC BILAT W OR WO CAD CHG DIAGNOSTIC MAMMOGRAPHY COMPUTER-AIDED DETCJ BI CHG DIGITAL BREAST TOMOSYNTHESIS BILATERAL Caron Mohan MD [address] [place] [address] Referral ID Status Reason Start Date Expiration Date Visits Re quested Visits Authorized [id number] Open 09/15/2024 10/16/2025 1 1 Reason for Visit * Reason Comments Follow Up Encounter Details Date Type Department Care Team (Late st Contact Info) Description 09/15/2024 1:30 PM CDT Office Visit [facility] Oncology and Hematology [address] [phone] Caron Mohan MD [address] [place] [address] Malignant neoplasm of upper-inner quadrant of left breast in female, estrogen receptor positive (Primary Dx); Osteopenia of multiple sites Social History Tobacco Use Types Packs/Day Years Used Date Smoking Tobacco: Never Smokeless Tobacco: Never Tobacco Cessation:Counseling Given: Not Answered Alcohol Use Standard Drinks/Week Comments Yes 0 (1 standard drink = 0.6 oz pur e alcohol) rare Feeling Safe Answer Date Recorded Fear of Current or Ex-Partner Not on file Emotionally Abused Not on file 09/15/2024 Within the last year, have y ou been kicked, hit, slapped, or otherwise physically hurt by your partner or ex-partner? No 09/15/2024 Sexually Abused Not on file 09/15/2024 Sex and Gender Information Value Date Recorded Sex Assigned at Not on file Gender Identity Not on file Sexual Orientation Not on file documented as of this encounter Last Filed Vital Signs Vital Sign Reading Time Taken Comments Blood Pressure 138/87 09/15/2024 1:27 PM CDT Pulse 76 09/15/2024 1:27 PM CDT Temperature 36.7 ??C (98 ??F) 09/15/2024 1:27 PM CDT Respiratory Rate - - Oxygen Saturation 97% 09/15/2024 1:27 PM CDT Inhaled Oxygen Concentration - - Weight 81.2 kg (179 lb) 09/15/2024 1:27 PM CDT Height 170.2 cm (5' 7 ) 09/15/2024 1:27 PM CDT Body Mass Index 28.04 09/15/2024 1:27 PM CDT documented in this encounter Progress Notes * Caron Mohan MD - 09/15/2024 1:35 PM CDT [facility] Oncology and Hematology Date of Service: 09/15/2024 Patient: Jolene Cedillo : 1945 DX - [id number] breast cancer, ER+/OK+/HER2-, NS 6. RX lumpectomy and RT 2017 [...] Current Outpatient Medications Medication Sig Dispense Refill ferrous gluconate 324 mg (38 mg iron) tablet Take 324 mg by mouth. letrozole (FEMARA) 2.5 mg tablet Take 1 Tablet (2.5 mg) by mouth daily. 90 Tablet 3 losartan (COZAAR) 100 mg tablet TAKE 1 TABLET BY MOUTH EVERY DAY Cholecalciferol, Vitamin D3, (VITAMIN D3) 2,000 unit Capsule Take 1 Capsule by mouth daily. calcium carbonate + vitamin D (CALTRATE+D) 600 mg(1,500mg) -400 unit Tablet Take 1 Tablet by mouth daily. 0 methotrexate (RHEUMATREX) 2.5 mg Tablet Take 2.5 mg by mouth every 7 days. 6 tabs on Sunday's benzonatate (TESSALON) 100 mg capsule Take 100 mg by mouth 3 times daily. OTHER PM Lubricant Eye Ointment No current facility-administered medications for this visit. ROS: Negative except as in HPI PHYSICAL EXAM BP 138/87 Pulse 76 Temp 98 ??F (36.7 ??C) (Temporal) Ht 5' 7 (1.702 m) Wt 81.2 kg (179 lb) SpO2 97% BMI 28.04 kg/m?? ECOG PS = 0 General appearance: [...] Cedillo is a 78 y.o. woman with [id number] breast cancer, ER+/OK+/HER2-, NS 6. She has had lumpectomy. Dr. John Ag in [place] has completed her radiation. OncotypeDX RS=7, 11% recurrence, no benefit to chemo. Since her tumor is strongly ER/OK positive, I have recommended hormonal Rx with oral aromatase inhibitor. She is tolerating this well. Started January 2019. 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 Sarah neg FEBRUARY 2024 Currently DILLON by labs, imaging, exam Reviewed labs from other MD Low iron but not anemic - chronic problem - had GI workup in the past Bone density checked 2023 - Spine normal, hip -1.5 Vitamin D, exercise reviewed. RTC 6 months with sarah, see PA Then transition to annual visits - she lives far away TOBACCO COUNSELING She is not a tobacco [...] Appointment [facility] [address] [place] [address] Caron Mohan MD [address] [place] [address] 03/19/2025 11:30 AM CDT Office Visit [facility] Oncology and Hematology [address] [place] [phone] Caron Mohan MD [address] [place] [address] [place] [address] [place] [address] Scheduled Orders Name Type Priority Associated Diagnoses Orde r Schedule MAMMO 3D CATHY DIAGNOSTIC BILAT W OR WO CAD Imaging Routine Malignant neoplasm of upper-inner quadrant of left breast in female, estrogen receptor positive Expected: 03/16/2025 (Approximate), Expires: 03/16/2026 documented as of this encounter Visit Diagnoses Diagnosis Malignant neoplasm of upper-inner quadrant of left breast in female, estrogen receptor positive- Primary Osteopenia of multiple sites documented in this encounter Care Teams Bar Gauger And Lubricator Tender Relationship Specialty Start Date End Date Francisco Long MD PCP - General Internal Medicine 06/27/18 documented as of this encounter
--- OUTSIDE RECORDS SUMMARY | 2024-11-16 13:25 | XMS_ITS | Clinical Summary ---
Author Organization [facility] Address [address] [place] [address] Phone Care Team Providers Care Attorney Recruiter Name Role Phone Francisco Long MD Primary Care Provider Unavailabl e Allergies Active Allergy Reactions Criticality Noted Date Comments Atorvastatin Muscle Pain Medium 03/04/2018 Codeine Nausea and Vomiting Low Reaction: Nausea, Medications Medication Sig Dispensed Refills Start Date End Date Status methotrexate (RHEUMATREX) 2.5 mg Tablet Take 2.5 mg by mouth every 7 days. 6 tabs on Active calcium carbonate + vitamin D (CALTRATE+D) 600 mg(1,500mg) -400 unit Tablet Take 1 Tablet by mouth daily. 0 02/12/2019 Active Cholecalciferol, Vitamin D3, (VITAMIN D3) 2,000 unit CapsuleIndications:V itamin D deficiency Take 1 Capsule by mouth daily. 05/26/2019 Active losartan (COZAAR) 100 mg tablet TAKE 1 TABLET BY MOUTH EVERY DAY 09/24/2020 Active OTHER PM Lubricant Eye Ointment Active benzonatate (TESSALON) 100 mg capsule Take 100 mg by mouth 3 times daily. Active letrozole (FEMARA) 2.5 mg tabletIndications:Ma lignant neoplasm of upper-inner quadrant of left breast in female, estrogen receptor positive,Menopause,E R+ (estrogen receptor positive status) Take 1 Tablet (2.5 mg) by mouth daily. 90 Tablet 3 02/25/2024 Active ferrous gluconate 324 mg (38 mg iron) tablet Take 324 mg by mouth. Active Active Problems Problem Noted Date Diagnosed [...] of diagnosis: 09/23/18 Diagnosis: LEFT IDC ER(+) CT(+) Her 2 (-) Surgeon: Taylor Surgery: 11/22/18 left lump/SLN Medical Oncologist: Kimberlee Chemotherapy: none Radiation Oncologist: Dr. John Ag office at [facility] Radiation: Hormonal therapy: Femara Treatment Summary and Survivorship Plan mailed to home for review. Marked as complete on 06/09/19. Patient is encouraged to call the [facility] office with any additional questions or concerns. Enma Verdugo RN BS BSN Breast Health Nurse Navigator-[facility] Breast lump 09/13/2018 Encounters Date Type Department Care Team Description 09/15/2024 1:30 PM CDT Office Visit [facility] Oncology and Hematology [address] [facility] [address] [place] [address] Caron Mohan MD Malignant neoplasm of upper-inner quadrant of left breast in female, estrogen receptor positive (Primary Dx); Osteopenia of multiple sites from Last 3 Months Family History Medical History Relation Name Comments Breast Cancer Neg Hx Ovarian Cancer Neg Hx Social History Tobacco Use Types Packs/Day Years [...] ??F) 09/15/2024 1:27 PM CDT Respiratory Rate 25 11/22/2018 12:20 PM DELICATE FABRICS PRESSER Oxygen Saturation 97% 09/15/2024 1:27 PM CDT Inhaled Oxygen Concentration - - Weight 81.2 kg (179 lb) 09/15/2024 1:27 PM CDT Height 170.2 cm (5' 7 ) 09/15/2024 1:27 PM CDT Body Mass Index 28.04 09/15/2024 1:27 PM CDT Plan of Treatment Upcoming Encounters Date Type Department Care Team (Late st Contact Info) Description 03/19/2025 10:[address] [facility] [address] [place] [phone] Caron Mohan MD [address] [place] [phone] 03/19/2025 11:30 AM CDT Office Visit [facility] Oncology and Hematology [address] [place] [address] Caron Mohan MD [address] [facility] [place], [place] [phone] [place] [address] [place] [address] Health Maintenance Due Date Last Done Comments DIABETES MICROALBUMIN ANNUAL SCREEN 1963 LDL CHOLESTEROL ANNUAL 1963 ZOSTER VACCINE (1 of 2) 1996 PNEUMOCOCCAL VACCINE 65+ YEA RS (2 of 2 - PPSV23 or PCV20) 02/11/2019 12/17/2018 RSV VACCINE (60+ or ) (1 - 1-dose 75+ series) 2021 DIABETES ANNUAL FOOT EXAM 10/03/2023 10/03/2022 INFLUENZA VACCINE (#1) 2024 2, 11/01/2020, 09/25/2019, Additional history exists COVID-19 Vaccine (3 - 2023-2 5 season) 2024 02/23/2021, 01/26/2021 DIABETES ANNUAL RETINAL EXAM 09/24/2024, 09/24/2023, 03/13/2023, Additional history exists DIABETES HBA1C Q 6 MONTHS 12/22/20242023, 06/20/2024, 03/27/2023, Additional history exists DTAP/TDAP/TD VACCINES (2 - T d or Tdap) 09/13/2028 09/13/2018 COLORECTAL SCREENING Discontinued 01/07/2020, 01/07/2020, 01/07/2020, Additional history exists Colorectal Cancer Screening Discontinued OSTEOPOROSIS SCREENING Completed , 02/19/2024, 06/28/2021, Additional history exists FIT-DNA Q 3 years Discontinued FIT/FOBT Q 1 year Discontinued Flex Sig/CT Colonography Q 5 years Discontinued Medical Devices Implanted Type Area Turning Lathe Tender Device Identifier Shelf Expiration Date Model / Serial / Lot Hemostat Darrel Surg Mph Pwd 3gm [id number] - [id number] Implanted:Qt y: 1 on 07/09/2018 by Micki Cadena MD at [facility] Hemostatic Pelvis [employer] 03/23/2023 [id number] LD / [id number] / Hemostat Darrel Surg Mph Pwd 3gm [id number] - [id number] Implanted:Qt y: 1 on 07/09/2018 by Micki Cadena MD at [facility] Hemostatic N/A: Pelvis [employer] [id number] 10/23/2022 [id number] / / [id number] Procedures Procedure Name Priority Date/Time Associated Diagnosis Comments XR DEXA BONE DENSITY AXIAL 1 OR MORE SITES Routine 03/11/2019 Menopausal and perimenopausal disorder Malignant neoplasm of upper-inner quadrant of left breast in female, estrogen receptor positive from Last 3 Months or Most Recently Relevant to Health Maintenance Results * XR DEXA BONE DENSITY AXIAL 1 OR MORE SITES (03/11/2019) Anatomical Region Laterality Modality Other Caron Mohan MD DIAGNOSTIC IMAGING O RDERABLES from Last 3 Months or Most Recently Relevant to Health Maintenance Advance Directives For more information, please contact: [phone] * Full Code (Latest Code Status on File) Date Activated Date Inactivated Comments 11/22/2018 9:15 AM 11/22/2018 2:32 PM * Full Code Date Activated Date Inactivated Comments 07/09/2018 2:57 PM 07/10/2018 7:38 PM * Full Code Date Activated Date Inactivated Comments 07/09/2018 7:18 AM 07/09/2018 2:57 PM Care Teams Attorney Recruiter Relationship Specialty Start Date End Date Francisco Long MD PCP - General Internal Medicine 06/27/18
--- OUTSIDE RECORDS SUMMARY | 2024-11-16 13:26 | XMS_ITS | Encounter Summary ---
Author Organization [facility] Address [address] [place]: [place] [address] Care Team Providers Care Psychiatric Secretary Name Role Phone Francisco Long MD Primary Care Provider Unavailabl e Encounter Details Date Type Department Care Team (Latest Contact Info) Description 12/01/2020 Travel Social History Tobacco Use Types Packs/Day [...] have Coronavirus / COVID-19? No / Unsure 12/01/2020 10:08 AM GEOTHERMAL OPERATING ENGINEER documented as of this encounter Plan of Treatment Upcoming Encounters Date Type Department Care Team (Late st Contact Info) Description 03/19/2025 10:45 AM CDT Appointment [facility] [address] [place] [address] Caron Mohan MD [address] [place] [address] 03/19/2025 11:30 AM CDT Office Visit [facility] Oncology and Hematology [address] [place] [phone] Caron Mohan MD [address] [place] [address] [place] [address] [place] [address] documented as of this encounter Visit Diagnoses Not on filedocumented in this encounter Care Teams Psychiatric Secretary Relationship Specialty Start Date End Date Francisco Long MD PCP - General Internal Medicine 06/27/18 documented as of this encounter
--- OUTSIDE RECORDS SUMMARY | 2024-11-16 13:26 | XMS_ITS | Encounter Summary ---
Author Organization [facility] Address [address] [place] [address] Care Team Providers Care Aboriginal Ceremonial Celebrant Name Role Phone Francisco Long MD Primary Care Provider Unavailabl e Reason for Referral * Radiology Services (Routine) - Closed Specialty Diagnoses / Procedures Referred By Halima garcia Referred To Contact Diagnoses Malignant neoplasm of upper-inner quadrant of left breast in female, estrogen receptor positive Procedures M[place] [address] [place] [address] Referral ID Status Reason Start Date Expiration Date Visits Re quested Visits Authorized [id number] Closed 12/01/2020 01/01/2022 1 1 APIST'S ASSISTANT Reason for Visit * Radiology Services (Routine) - Closed Specialty Diagnoses / Procedures Referred By Halima garcia Referred To Contact Diagnoses Malignant neoplasm of upper-inner quadrant of left breast in female, estrogen receptor positive Procedures [place] [address] [place] [address] Referral ID Status Reason Start Date Expiration Date Visits Re quested Visits Authorized [id number] Closed 12/01/2020 01/01/2022 1 1 Encounter Details Date Type Department Care Team (Latest Contact Info) Description 12/01/2020 10:53 AM THERAPIST'S ASSISTANT - 12/01/2020 11:59 PM THERAPIST'S ASSISTANT Hospital Encounter [facility] [address] [place] [address] [place] [address] [place] [address] Discharge Disposition: Home or Self Care Social [...] COVID-19? No / Unsure 12/01/2020 10:08 AM THERAPIST'S ASSISTANT documented as of this encounter Medications at Time of Discharge Medication Sig Dispensed Refills Start Date End Date losartan (COZAAR) 100 mg tablet TAKE 1 TABLET BY MOUTH EVERY DAY 09/24/2020 Cholecalciferol, Vitamin D3, (VITAMIN D3) 2,000 unit CapsuleIndications:Kimmie min D deficiency Take 1 Capsule by mouth daily. 05/26/2019 calcium carbonate + vitamin D (CALTRATE+D) 600 mg(1,500mg) -400 unit Tablet Take 1 Tablet by mouth daily. 0 02/12/2019 methotrexate (RHEUMATREX) 2.5 mg Tablet Take 2.5 mg by mouth every 7 days. 6 tabs on Sunday' pantoprazole (PROTONIX) 40 mg Tablet, Delayed Release (E.C.) Take 40 mg by mouth. 01/08/202001/07 letrozole (FEMARA) 2.5 mg Tablet TAKE 1 TABLET(2.5 MG) BY MOUTH DAILY 90 Tablet 4 02/16/2020 06/21/2021 losartan-hydroCHLOROthi azide (HYZAAR) 100-12.5 mg tablet Take 1 Tablet by mouth daily. 06/08/2021 documented as of this encounter Plan of Treatment Upcoming Encounters Date Type Department Care Team (Late st Contact Info) Description 03/19/2025 10:45 AM CDT Appointment [facility] [address] [place] [phone] Caron Mohan MD [address] [place] [address] 03/19/2025 11:30 AM CDT Office Visit [facility] [address] [place] [address] Caron Mohan MD [address] [place] [address] [place] [address] [facility] [address] [place] [address] documented as of this encounter Procedures Procedure Name Priority Date/Time Associated Diagnosis Comments MAMMO BREAST US LEFT LTD Routine 12/01/2020 11:08 AM THERAPIST'S ASSISTANT Malignant neoplasm of upper-inner quadrant of left breast in female, estrogen receptor positive documented in this encounter Results * MAMMO BREAST US LEFT LTD (12/01/2020 11:08 AM THERAPIST'S ASSISTANT) Anatomical Region Laterality Modality Left Ultrasound 12/01/2020 11:0 8 AM THERAPIST'S ASSISTANT Impressions 12/01/2020 12:38 PM THERAPIST'S ASSISTANT IMPRESSION: No evidence of malignancy within either breast. RECOMMENDATION: Annual mammography is recommended. DICTATION LOCATION: ??[facility] Narrative 12/01/2020 12:38 PM THERAPIST'S ASSISTANT BILATERAL FULL-FIELD DIGITAL DIAGNOSTIC MAMMOGRAM WITH 3-D TOMOSYNTHESIS AND CAD LEFT BREAST ULTRASOUND LIMITED ??12/01/2020 HISTORY: Previous breast conservation therapy for treatment of breast cancer on the left in 2018. Annual follow-up. COMPARISON: March 2016 through October 2019. BREAST COMPOSITION: ??Heterogeneously dense which limits the sensitivity of mammography. FINDINGS: Breast conservation changes remain stable in the central to slightly medial left breast. There is mild asymmetry in the lateral left breast at the posterior depth which likely represents benign fibroglandular tissue. No definite mass is seen on the spot compression views performed with 3-D tomosynthesis. Correlation with ultrasound is recommended to exclude an obscured lesion in this area. No mass or distortion is seen in the right breast. No suspicious microcalcifications have developed. CAD is utilized. High-resolution ultrasound was performed throughout the lateral left breast. Dense fibroglandular tissues are observed throughout the upper-outer quadrant which demonstrate benign features on ultrasound. No discrete solid or cystic mass is identified. No architectural distortion or acoustic shadowing is seen. OVERALL FINAL ASSESSMENT: ??BI-RADS CATEGORY 2: Benign findings. Procedure Note Fortino Coleman MD - 12/01/2020 BILATERAL FULL-FIELD DIGITAL DIAGNOSTIC MAMMOGRAM WITH 3-D TOMOSYNTHESIS AND CAD LEFT BREAST ULTRASOUND LIMITED 12/01/2020 HISTORY: Previous breast conservation therapy for treatment of breast cancer on the left in 2018. Annual follow-up. COMPARISON: March 2016 through October 2019. BREAST COMPOSITION: Heterogeneously dense which limits the sensitivity of mammography. FINDINGS: Breast conservation changes remain stable in the central to slightly medial left breast. There is mild asymmetry in the lateral left breast at the posterior depth which likely represents benign fibroglandular tissue. No definite mass is seen on the spot compression views performed with 3-D tomosynthesis. Correlation with ultrasound is recommended to exclude an obscured lesion in this area. No mass or distortion is seen in the right breast. No suspicious microcalcifications have developed. CAD is utilized. High-resolution ultrasound was performed throughout the lateral left breast. Dense fibroglandular tissues are observed throughout the upper-outer quadrant which demonstrate benign features on ultrasound. No discrete solid or cystic mass is identified. No architectural distortion or acoustic shadowing is seen. OVERALL FINAL ASSESSMENT: BI-RADS CATEGORY 2: Benign findings. IMPRESSION: No evidence of malignancy within either breast. RECOMMENDATION: Annual mammography is recommended. DICTATION LOCATION: [facility] Ita Vazquez MD MAMMO ORDERABLES documented in this encounter Visit Diagnoses Diagnosis Malignant neoplasm of upper-inner quadrant of left breast in female, estrogen receptor positive documented in this encounter Care Teams Aboriginal Ceremonial Celebrant Relationship Specialty Start Date End Date Francisco Long MD PCP - General Internal Medicine 06/27/18 documented as of this encounter
--- OUTSIDE RECORDS SUMMARY | 2024-11-16 13:26 | XMS_ITS | Encounter Summary ---
Author Organization [facility] Address [address] [place] [address] Care Team Providers Care Big Data Software Engineer Name Role Phone Francisco Long MD Primary Care Provider Unavailabl e Reason for Visit * Reason Comments Med Refill Encounter Details Date Type Department Care Team (Late st Contact Info) Description 10/02/2022 Refill [facility]-[address] [place] [phone] Caron Mohan MD [address] [place] [phone] Malignant neoplasm of upper-inner quadrant of left breast in female, estrogen receptor positive; Menopause; ER+ (estrogen receptor positive status) Social History Tobacco Use Types Packs/Day Years [...] Description 03/19/2025 10:45 AM CDT Appointment [facility] [address] [place] [phone] Caron Mohan MD [address] [place] [phone] 03/19/2025 11:30 AM CDT Office Visit [facility] [address] [address] [facility] [address] [place] [phone] Caron Mohan MD [address] [place], [place] [phone] [place] [address] [facility] [address] [place] [address] documented as of this encounter Visit Diagnoses Diagnosis Malignant neoplasm of upper-inner quadrant of left breast in female, estrogen receptor positive Menopause Symptomatic menopausal or female climacteric states ER+ (estrogen receptor positive status) Estrogen receptor positive status [ER+] documented in this encounter Care Teams Big Data Software Engineer Relationship Specialty Start Date End Date Francisco Long MD PCP - General Internal Medicine 06/27/18 documented as of this encounter
--- OUTSIDE RECORDS SUMMARY | 2024-11-16 13:26 | XMS_ITS | Encounter Summary ---
Author Organization [facility] Address [address] [place] [address] Care Team Providers Care Kitchen And Bath Designer Name Role Phone Francisco Long MD Primary Care Provider Unavailabl e Reason for Visit * Reason Comments Follow Up 6 months w/mmg befor e Encounter Details Date Type Department Care Team (Late st Contact Info) Description 11/12/2019 9:45 AM COLLET MAKER Office Visit [facility] [address] [facility] [address] [place] [address] Caron Mohan MD 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 rheumatoid factor; History of endometrial cancer Social History Tobacco Use Types Packs/Day [...] Sign Reading Time Taken Comments Blood Pressure 140/80 11/12/2019 10:06 AM COLLET MAKER Pulse 90 11/12/2019 10:06 AM COLLET MAKER Temperature 36.7 ??C (98 ??F) 11/12/2019 10:06 AM COLLET MAKER Respiratory Rate - - Oxygen Saturation 94% 11/12/2019 10:06 AM COLLET MAKER Inhaled Oxygen Concentration - - Weight 86.2 kg (190 lb 0.6 oz) 11/12/2019 10:06 AM COLLET MAKER Height 170.2 cm (5' 7 ) 11/12/2019 10:06 AM COLLET MAKER Body Mass Index 29.76 11/12/2019 10:06 AM COLLET MAKER documented in this encounter Progress Notes * Caron Mohan MD - 11/12/2019 10:23 AM CST [facility] Date of Service: 11/12/2019 Patient: Jolene Cedillo : 1945 HPI Ms. Cedillo is a 72 yo [...] clot after knee surgery. DEXA 2017 at [facility] but unable to access results. INTERVAL HX Tolerating AI well. Rare HF. RA is stable on MTX. Liudmila today neg - no breast concerns. Patient History Past Medical History: Diagnosis Date ??? Arthritis RA ??? At risk for obstructive sleep apnea STOP BANG 4 ??? Cancer 05/2018 UTERINE ??? Dyspnea on exertion ??? HTN (hypertension) ??? 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 HX BREAST LUMPECTOMY FOR CANCER Left 11/22/2018 IDC with radiation ??? HX CATARACT EXTRACTION, BILATERAL ??? HX CORE NEEDLE BREAST BIOPSY Left 09/23/2018 IDC ??? HX HYSTERECTOMY N/A 07/09/2018 Partial ??? 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 MD BX/REMV,LYMPH NODE,DEEP AXILL Left 11/22/2018 LEFT AXILLARY SENTINEL LYMPH NODE BIOPSY WITH NUC MED AT 7:45 AM performed by Ita Vazquez MD at [facility] CC OR ??? MD LAP,LYMPH NODE BX N/A 07/09/2018 PELVIC LYMPH NODE STAGING DAVINCI SI performed by Mikci Cadena MD at [facility] OR [facility] ??? MD LAP,RMV ADNEXAL STRUCTURE Bilateral 07/09/2018 SALPINGO-OOPHORECTOMY DAVINCI SI performed by Micki Cadena MD at [facility] OR [facility] ??? MD LAPAROSCOPY W TOT HYSTERECT UTERUS 250 GRAM OR LESS N/A 07/09/2018 HYSTERECTOMY TOTAL DAVINCI SI performed by Micki Cadena MD at [facility] OR [facility] ??? MD MASTECTOMY, PARTIAL Left 11/22/2018 LEFT BREAST LUMPECTOMY WITH NLOC @ 8:30 AM performed by Ita Vazquez MD at [facility] CC OR Social History Socioeconomic History ??? Marital status: Spouse name: Not on file ??? Number of children: Not on file ??? Years of education: Not on file ??? Highest education level: Not on file Occupational History ??? Not on file Social Needs ??? Financial resource strain: Not on file ??? Food insecurity: Worry: Not on file Inability: Not on file ??? Transportation needs: Medical: Not on file Non-medical: Not on file Tobacco Use ??? Smoking status: Never Smoker ??? Smokeless tobacco: Never Used Substance and Sexual Activity ??? Alcohol use: Yes Comment: rare ??? Drug use: No ??? Sexual activity: Not on file Lifestyle ??? Physical activity: Days per week: Not on file Minutes per session: Not on file ??? Stress: Not on file Relationships ??? Social connections: Talks on phone: Not on file Gets together: Not on file Attends baptist service: Not on file Active member of club or organization: Not on file Attends meetings of clubs or organizations: Not on file Relationship status: Not on file ??? Intimate partner violence: Fear of current or ex partner: Not on file Emotionally abused: Not on file Physically abused: Not on file Forced sexual activity: Not on file Other Topics Concern ??? Not on file Social History Narrative ??? Not on file Family History Problem Relation Name Age of Onset ??? Breast Cancer Neg Hx ??? Ovarian Cancer Neg Hx Allergies Allergen Reactions ??? Atorvastatin Muscle Pain ??? Codeine Nausea and Vomiting Reaction: Nausea, Current Outpatient Medications Medication Sig Dispense Refill ??? Cholecalciferol, Vitamin D3, (VITAMIN D3) 2,000 unit Capsule Take 1 Capsule by mouth daily. ??? calcium carbonate + vitamin D (CALTRATE+D) 600 mg(1,500mg) -400 unit Tablet Take 1 Tablet by mouth daily. 0 ??? letrozole (FEMARA) 2.5 mg Tablet Take 1 Tablet (2.5 mg) by mouth daily. 90 Tablet 3 ??? HYDROcodone-acetaminophen (NORCO) 5-325 mg tablet Take 1 Tablet by mouth every 4 hours as needed for Pain, Moderate. Max Daily Amount: 6 Tablets 30 Tablet 0 ??? methotrexate (RHEUMATREX) 2.5 mg Tablet Take 2.5 mg by mouth every 7 days 6 tabs on . ??? losartan-hydroCHLOROthiazide (HYZAAR) 100-12.5 mg tablet Take 1 Tablet by mouth daily. ??? ferrous sulfate (Iron) 325 mg (65 mg iron) tablet Take 325 mg by mouth daily. No current facility-administered medications for this visit. ROS: Constitutional: denies fevers, sweats, weight loss HEENT: denies sinus congestion, hearing or vision problems Respiratory: denies cough, dyspnea, wheeze, shortness of breath Cardiovascular: denies chest pain, exertional chest pressure/discomfort, syncope GI: denies constipation, diarrhea, dysphagia, reflux symptoms, nausea, vomiting, melena or bleeding : denies dysuria, frequency, incontinence, urgency Musculoskeletal:see HPI Neurological: denies headaches, numbness/weakness, dizziness, memory problems Skin: No lumps, bumps, easy bruising, or rashes. Psych: No depression or anxiety. cash posting specialist:No vaginal discharge or abnormal bleeding. Breasts: see HPI PHYSICAL EXAM BP (!) 140/80 Pulse 90 Temp 98 ??F (36.7 ??C) Ht 5' 7 (1.702 m) Wt 86.2 kg (190 lb 0.6 oz) SpO2 94% BMI 29.76 kg/m?? ECOG PS = 0 General appearance: alert, cooperative, no distress, appears stated age Head: without obvious abnormality Eyes: conjunctivae/corneas clear, EOM's intact Ears: normal external ear canals Nose: Nares normal. Septum midline. Mucosa normal. No drainage or sinus tenderness Throat: Lips, mucosa, and tongue normal. Teeth and gums normal. Neck: supple, symmetrical, trachea midline. Thyroid: no tenderness/mass/nodules Back: symmetric, no curvature. ROM normal. No CVA tenderness Lungs: clear to auscultation bilaterally Heart: regular rate and rhythm, S1, S2 normal, no murmur, click, rub or gallop Abdomen: soft, non-tender. Bowel sounds normal. No masses, No organomegaly Extremities: extremities normal, atraumatic, no cyanosis or edema Skin: Skin color, texture, turgor normal. No rashes or lesions Lymph nodes: No cervical, axillary, or inguinal adenopathy Neuro: No obvious focal deficit Breasts: right -no masses, skin changes, or nipple changes Left - s/p lumpectomy and SLN and RT, [facility] Lab Results Component Value Date/Time WBC 10.1 (H) 07/10/2018 04:05 AM HGB 10.9 (L) 07/10/2018 04:05 AM HCT 35.5 07/10/2018 04:05 AM PLT 205 07/10/2018 04:05 AM MCV 83.5 07/10/2018 04:05 AM Lab Results Component Value Date/Time NA 137 07/10/2018 04:05 AM K 3.8 07/10/2018 04:05 AM CL 100 07/10/2018 04:05 AM CO2 26 07/10/2018 04:05 AM CA 8.4 (L) 07/10/2018 04:05 AM BUN 8 07/10/2018 04:05 AM CREAT 0.73 07/10/2018 04:05 AM GLUCOSE 140 (H) 07/10/2018 04:05 AM TOTALPROTEIN 7.1 06/27/2018 11:51 AM ALBUMIN 4.3 06/27/2018 11:51 AM BILITOTAL 0.4 06/27/2018 11:51 AM ALKPHOS 71 06/27/2018 11:51 AM AST 23 06/27/2018 11:51 AM ALT 21 06/27/2018 11:51 AM ANIONGAP 11 07/10/2018 04:05 AM Lab Results Component Value Date/Time VITAMINDTO 29 (L) 05/14/2019 11:22 AM FINAL DIAGNOSIS 09/23/18 Breast, left, core biopsy: - Invasive ductal carcinoma, with the following features: 1. Size: 12 mm. 2. Burt score: 6/9. 3. Lymphvascular invasion: Not identified. 4. Stage: pT1c. - Biomarker results: ER 8/8 (positive), MD 8/8 (positive), Her2 IHC 1+ (negative). - Low to intermediate grade ductal carcinoma in situ, minute focus, with associated calcifications. FINAL DIAGNOSIS A. 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 ?? B. Breast, left, lumpectomy: - Invasive ductal carcinoma, with the following features: 1. Size: 1.3 cm. 2. Burt score: 6/9. 3. Margins: Invasive carcinoma 3 mm from the posterior margin. 4. Lymphvascular invasion: Not definitively identified. 5. Stage: pT1c snN1mi. 6. Biomarkers: HER2 1+ (ER and MD positive performed previously on [id number]). - Radial scar. - Intraductal papilloma (0.1 cm). - Sclerosing adenosis. - Focal fat necrosis and hemosiderin deposition, consistent with biopsy site changes. - Microcalcifications identified, associated with background breast tissue. - Background breast with fibrocystic changes including usual duct hyperplasia, apocrine metaplasia,columnar cell change, and duct ectasia. ?? C. Breast, left, medial to deep margin, reexcision: - Benign breast tissue, negative for carcinoma. SCANS Results for orders placed or performed during the hospital encounter of 11/12/19 MAMMO DIAG BILAT 3D CATHY W OR WO CAD Narrative EXAM: BILATERAL DIAGNOSTIC DIGITAL MAMMOGRAM WITH 3D TOMOSYNTHESIS AND CAD DATE: 11/12/2019 9:26 AM HISTORY: Personal history of breast cancer with prior left conservation therapy. DICTATION LOCATION: [facility] COMPARISON: 05/14/2019 and older. TECHNIQUE: Mediolateral oblique, mediolateral and craniocaudal views of both breasts were performed using full-field digital mammography. Low-dose digital breast tomosynthesis examination was performed with 2D and 3D acquisitions. Examination is read in conjunction with computer aided detection. BREAST COMPOSITION: Heterogeneously dense, which limits the sensitivity of mammography. FINDINGS: Mammographic changes consistent with breast conservation therapy are seen on the left. No concerning mass, suspicious microcalcifications, or concerning areas of architectural distortion are identified in either breast. Computer aided detection was utilized. Impression IMPRESSION: No suspicious findings to suggest malignancy in either breast. Annual mammography is recommended. OVERALL FINAL ASSESSMENT: BI-RADS CATEGORY 2: Benign findings Results for orders placed or performed during the hospital encounter of 05/14/19 MAMMO DIAG UNI LEFT 3D CATHY W OR WO CAD Narrative LEFT UNILATERAL FULL-FIELD DIGITAL DIAGNOSTIC MAMMOGRAM WITH 3-D TOMOSYNTHESIS AND CAD DATE: 05/14/2019 10:27 AM HISTORY: Previous breast conservation therapy on the left in October of 2018. Short-term follow-up is requested to assess for stability and reestablish baseline. COMPARISON: March 2016 through October 2018. TECHNIQUE: Low Dose full field Digital Breast tomosynthesis examination was performed with 2D and 3D acquisitions. Examination is read in conjunction with computer aided detection. BREAST COMPOSITION: Heterogeneously dense which lowers the sensitivity of mammography. FINDINGS: Evolving postsurgical changes are identified in the upper-inner quadrant of the left breast at the mid to posterior depth. No residual or recurrent mass is appreciated. No suspicious microcalcifications are seen within the left breast. CAD is utilized. Overall assessment: BI-RADS Category 2: Benign findings Impression IMPRESSION: Evolving postsurgical changes in the upper-inner left breast. Recommendation: Annual mammography is recommended. DICTATION LOCATION: [facility] ASSESSMENT and PLAN Ms. Cedillo is a 73 y.o. woman with [id number] breast cancer, ER+/MD+/HER2-, NS 6. Since she has had lumpectomy done, she will need adjuvant XRT. Dr. John Ag in [place] has completed her radiation. OncotypeDX RS=7, 11% recurrence, no benefit to chemo. Since her tumor is strongly ER/MD positive, I have recommended hormonal Rx with oral aromatase inhibitor. She is tolerating this well. Bone density checked February 2019, normal Vitamin D = 29, rec double dose RTC 6 months OTHER ISSUES: H/o endometrial cancer - very early stage, f/u with Dr. Surinder BERNARDO - continue MTX Iron deficiency - Getting colonoscopy soon. Taking iron Consider genetic testing due to breast and endometrial cancer. TOBACCO COUNSELING She is not a tobacco user. The patient expressed good understanding of the issues discussed, and questions were addressed. Thank you for asking me to assist in the care of your patient. If any further questions or concernsshould arise, please do not hesitate to contact me. Caron Mohan MD ET MAKER documented in this encounter Plan of Treatment Upcoming Encounters Date Type Department Care Team (Late st Contact Info) Description 03/19/2025 10:45 AM CDT Appointment [facility] [address] [place] [phone] Caron Mohan MD [address] [facility] [address] [place] [id number] 03/19/2025 11:30 AM CDT Office Visit [facility] Oncology and Hematology [address] [place] [address] Caron Mohan MD [address] [facility] [place], [place] [phone] [place] [address] [facility] [address] [place] [address] documented as of this encounter Visit Diagnoses Diagnosis Malignant neoplasm of upper-inner quadrant of left breast in female, estrogen receptor positive- Primary 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 rheumatoid factor History of endometrial cancer Personal history of malignant neoplasm of other parts of uterus documented in this encounter Care Teams Kitchen And Bath Designer Relationship Specialty Start Date End Date Francisco Long MD PCP - General Internal Medicine 06/27/18 documented as of this encounter
--- OUTSIDE RECORDS SUMMARY | 2024-11-16 13:26 | XMS_ITS | Encounter Summary ---
Author Organization [facility] Address [address] [place] [address] Care Team Providers Care Head Of Art Name Role Phone Francisco Long MD Primary [...] DETCJ BI CHG DIGITAL BREAST [place]OMOSYNTH[place] [address] [place] [address] Referral ID Status Reason Start Date Expiration Date Visits Re quested Visits Authorized [id number] Closed 11/12/2019 12/12/2020 1 1 ION SUPERVISOR Reason for Visit * Reason Comments Follow Up 6mo Encounter Details Date Type Department Care Team (Late st Contact Info) Description 11/12/2019 10:15 AM SECTION SUPERVISOR Office Visit [facility] BREAST SURGERY - [facility] [address] [place] [address] [place] [address] [place] [address] Malignant neoplasm of upper-inner quadrant of left breast in female, estrogen receptor positive (Primary Dx) Social History Tobacco Use Types [...] Time Taken Comments Blood Pressure 140/80 11/12/2019 10:43 AM SECTION SUPERVISOR Pulse - - Temperature - - Respiratory Rate - - Oxygen Saturation - - Inhaled Oxygen Concentration - - Weight 86.2 kg (190 lb) 11/12/2019 10:43 AM SECTION SUPERVISOR Height 170.2 cm (5' 7 ) 11/12/2019 10:43 AM SECTION SUPERVISOR Body Mass Index 29.76 11/12/2019 10:43 AM SECTION SUPERVISOR documented in this encounter Progress Notes * Ita Vazquez MD - 11/12/2019 11:02 AM CST PATIENT: Jolene Cedillo : 1945 DATE: 11/12/2019 Stage: Clinical T1 N0; pT1c snN1mi Date of diagnosis: 09/23/18 Diagnosis: LEFT IDC ER(+) NE(+) Her 2 (-) Surgeon: Taylor Surgery: 11/22/18 left lump/SLN Medical Oncologist: Kimberlee Chemotherapy: none Radiation Oncologist: Dr. John Ag office at [facility] Radiation: Hormonal therapy: Femara CHIEF COMPLAINT: breast cancer follow-up HISTORY OF PRESENT ILLNESS: Jolene Cedillo is a 73 y.o. female here for routine follow-up. She reports that she is doing quite well. She denies any lumps, worrisome skin changes, or particular pains in either breast. Her has been battling prostate cancer. Family history shows no cancer. She has a personal history of endometrial cancer. . Menarche at12. She is retired. PMH: Past Medical History: Diagnosis Date ??? Arthritis RA ??? At risk for obstructive sleep apnea STOP BANG 4 ??? Cancer 05/2018 UTERINE ??? Dyspnea on exertion ??? HTN (hypertension) ??? 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 HX BREAST LUMPECTOMY FOR CANCER Left 11/22/2018 IDC with radiation ??? HX CATARACT EXTRACTION, BILATERAL ??? HX CORE NEEDLE BREAST BIOPSY Left 09/23/2018 IDC ??? HX HYSTERECTOMY N/A 07/09/2018 Partial ??? 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 NE BX/REMV,LYMPH NODE,DEEP AXILL Left 11/22/2018 LEFT AXILLARY SENTINEL LYMPH NODE BIOPSY WITH NUC MED AT 7:45 AM performed by Ita Vazquez MD at [facility] CC OR ??? NE LAP,LYMPH NODE BX N/A 07/09/2018 PELVIC LYMPH NODE STAGING DAVINCI SI performed by Micki Cadena MD at [facility] OR [facility] ??? NE LAP,RMV ADNEXAL STRUCTURE Bilateral 07/09/2018 SALPINGO-OOPHORECTOMY DAVINCI SI performed by Micki Cadena MD at [facility] OR [facility] ??? NE LAPAROSCOPY W TOT HYSTERECT UTERUS 250 GRAM OR LESS N/A 07/09/2018 HYSTERECTOMY TOTAL DAVINCI SI performed by Micki Cadena MD at [facility] OR [facility] ??? NE MASTECTOMY, PARTIAL Left 11/22/2018 LEFT BREAST LUMPECTOMY WITH NLOC @ 8:30 AM performed by Ita Vazquez MD at [facility] CC OR ALLERGY: Allergies Allergen Reactions ??? Atorvastatin Muscle Pain ??? Codeine Nausea and Vomiting Reaction: Nausea, MEDS: Current Outpatient Medications Medication Sig Dispense Refill [...] No current facility-administered medications for this visit. FHX: Family History Problem Relation Name Age of Onset ??? Breast Cancer Neg Hx ??? Ovarian Cancer Neg Hx SOC: Social History Socioeconomic History ??? Marital status: [...] file Gets together: Not on file Attends anglican service: Not on file Active member of [...] Social History Narrative ??? Not on file ROS: Constitutional: Negative for fever, weight loss and malaise/fatigue. Respiratory: Negative for cough. Cardiovascular: Negative for chest pain and leg swelling. Gastrointestinal:. Negative for abdominal pain. Genitourinary: Negative for dysuria. Musculoskeletal: Negative for myalgias and joint pain. Skin: Negative for rash. Neurological: Negative for dizziness and headaches. Psychiatric/Behavioral: Negative for depression Female: OB History 0 Para 0 Term 0 0 AB 0 Living 0 SAB 0 TAB 0 Ectopic 0 Multiple 0 Live Births 0 Obstetric Comments Age @ onset of menses: 12 The remainder of the review of systems including cardiovascular, pulmonary, GI/, neurologic, and endocrine are negative except as noted above. Immunizations: non-contributory PHYSICAL EXAM: BP (!) 140/80 Ht 5' 7 (1.702 m) Wt 86.2 kg (190 lb) BMI 29.76 kg/m?? General: well-developed, well-nourished HEENT: normocephalic/atraumatic. Extra-occular movements are intact. Sclera anicteric. Neck is supple without masses. No thyroid nodules. No lymphadenopathy. Cardiovascular: S1, S2 without murmur. No palpable thrill. 2+ radial pulses. Lungs - clear to auscultation bilaterally. No wheezes. Abdomen: Soft, non-tender. No masses. Extremities: no edema Neurologic: sensory and motor grossly intact. Alert and oriented x 3. Breasts: Nipples are everted. Her scar in the left breast is well-healed. She has a little bit of scar tissue in this area and some healing radiation changes. Neither breast has dominant mass, skin changes, nipple discharge, or axillary lymphadenopathy. IMAGING: I personally reviewed imaging dated: 11/12/19: bilateral mammogram- stable 05/14/19: left mammogram- post-operative changes 09/03/18: Bilateral mammogram with left additional views and ultrasound at [facility]- there is a new 16 mm irregular mass at 9:00 on the left. Stable 1.7 cm nodular density in the left subareolar breast. By ultrasound this measures 1.3 cm. Biopsy is recommended 05/25/17: Bilateral mammogram PATHOLOGY: 11/22/19 A. 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 ?? B. Breast, left, lumpectomy: - Invasive ductal carcinoma, with the following features: 1. Size: 1.3 cm. 2. Donnie score: 6/9. 3. Margins: Invasive carcinoma 3 mm from the posterior margin. 4. Lymphvascular invasion: Not definitively identified. 5. Stage: pT1c snN1mi. 6. Biomarkers: HER2 1+ (ER and NE positive performed previously on [id number]). - Radial scar. - Intraductal papilloma (0.1 [...] - Benign breast tissue, negative for carcinoma. 09/23/18 Breast, left, core biopsy: - Invasive ductal??carcinoma, with the following features: ?1. Size: ??12 mm. ?2. Emporium score: /9. ?3. Lymphvascular invasion: Not identified. ?4. Stage: pT1c. - Biomarker results: ??ER 8/8 (positive), NE 8/8 (positive), Her2 IHC 1+ (negative). - Low to intermediate grade ductal carcinoma in situ, minute focus, with associated calcifications ASSESSMENT AND PLAN: Stage I cancer of the left breast. There is no evidence of local recurrence. I will see her in a year with a bilateral mammogram. . Ita Vazquez MD, FACS cc: Francisco Long MD Murray, Karuna, MD ION SUPERVISOR documented in this encounter Plan of Treatment Upcoming Encounters Date Type Department Care Team (Late st Contact Info) Description 03/19/2025 10:45 AM CDT Appointment [facility] [address] [address] [place] [address] Caron Mohan MD [address] [place] [phone] 03/19/2025 11:30 AM CDT Office Visit [facility] Oncology and Hematology [address] [facility] [address] [place] [address] Caron Mohan MD [address] [place] [address] [place] [address] [facility] [address] [place] [address] documented as of this encounter Results * MAMMO DIAG BILAT 3D CATHY W OR WO CAD (12/01/2020 10:36 AM SECTION SUPERVISOR) Anatomical Region Laterality Modality Breast Bilateral Mammography 12/01/2020 10:3 6 AM SECTION SUPERVISOR Impressions 12/01/2020 12:38 PM SECTION SUPERVISOR IMPRESSION: No evidence of malignancy within either breast. RECOMMENDATION: Annual mammography is recommended. DICTATION LOCATION: ??Cindy Long Narrative 12/01/2020 12:38 PM SECTION SUPERVISOR BILATERAL FULL-FIELD DIGITAL DIAGNOSTIC MAMMOGRAM WITH 3-D [...] RECOMMENDATION: Annual mammography is recommended. DICTATION LOCATION: [facility] Ita Vazquez MD MAMMO ORDERABLES documented in this encounter Visit Diagnoses Diagnosis Malignant neoplasm of upper-inner quadrant of left breast in female, estrogen receptor positive- Primary Malignant neoplasm of upper-inner quadrant of left breast in female, estrogen receptor positive documented in this encounter Care Teams Head Of Art Relationship Specialty Start Date End Date Francisco Long MD PCP - General Internal Medicine 06/27/18 documented as of this encounter
--- OUTSIDE RECORDS SUMMARY | 2024-11-16 13:26 | XMS_ITS | Encounter Summary ---
Author Organization [facility] Address [address] [place] [address] Care Team Providers Care Lending Activities Supervisor Name Role Phone Francisco Long MD [...] Mohan MD [address] [place] [address] Referral ID Status Reason Start Date Expiration Date Visits Re quested Visits Authorized [id number] Closed 08/09/2022 09/09/2023 1 1 Reason for Visit * Reason Comments Malignant neoplasm of upper-inner quadra nt of left breast i Encounter Details Date Type Department Care Team (Late st Contact Info) Description 08/09/2022 10:45 AM CDT Office Visit [facility] ONCOLOGY AND HEMATOLOGY-[facility] [place] [address] [place] [address] Caron Mohan MD [address] [place], [place] [id number] Malignant neoplasm of upper-inner quadrant of left breast in female, estrogen receptor positive (Primary Dx); History of endometrial cancer; Rheumatoid arthritis with rheumatoid factor of multiple [...] suspected to have Coronavirus/COVID-19? No / Unsure 08/09/2022 10:15 AM CDT documented as of this encounter Last Filed Vital Signs Vital Sign Reading Time Taken Comments Blood Pressure 140/80 08/09/2022 10:48 AM CDT Pulse 84 08/09/2022 10:48 AM CDT Temperature 36.7 ??C (98 ??F) 08/09/2022 10:48 AM CDT Respiratory Rate - - Oxygen Saturation 96% 08/09/2022 10:48 AM CDT Inhaled Oxygen Concentration - - Weight 85.3 kg (188 lb) 08/09/2022 10:48 AM CDT Height 170.2 cm (5' 7 ) 08/09/2022 10:48 AM CDT Body Mass Index 29.44 08/09/2022 10:48 AM CDT documented in this encounter Progress Notes * Caron Mohan MD - 08/09/2022 11:07 AM CDT [facility] Oncology and Hematology Date of Service: 08/09/2022 Patient: Jolene Cedillo : 1945 HPI Ms. [...] clot after knee surgery. DEXA 2017 at [facility] but unable to access results. INTERVAL HX Tolerating AI well. Rare HF. On MTX for RA Liudmila January 2022 was abnormal, neg biopsy Current Outpatient Medications Medication Sig Dispense Refill letrozole (FEMARA) 2.5 mg tablet TAKE 1 TABLET(2.5 MG) BY MOUTH DAILY 90 Tablet 4 losartan (COZAAR) 100 mg tablet TAKE 1 TABLET BY MOUTH EVERY DAY OTHER PM Lubricant Eye Ointment carvediloL (COREG) 6.25 mg tablet Take 6.25 mg by mouth 2 times daily with meals. Cholecalciferol, Vitamin D3, (VITAMIN D3) 2,000 unit Capsule Take 1 Capsule by mouth daily. calcium carbonate + vitamin D (CALTRATE+D) 600 mg(1,500mg) -400 unit Tablet Take 1 Tablet by mouth daily. 0 methotrexate (RHEUMATREX) 2.5 mg Tablet Take 2.5 mg by mouth every 7 days. 6 tabs on No current facility-administered medications for this visit. ROS: Negative except as in HPI PHYSICAL EXAM BP (!) 140/80 (BP Location: Right arm, Patient Position (BP): Sitting, BP Cuff Size: Adult) Pulse84 Temp 98 ??F (36.7 ??C) (Oral) Ht 5' 7 (1.702 m) Wt 85.3 kg (188 lb) SpO2 96% BMI 29.44 kg/m?? ECOG PS = 0 General appearance: [...] Left - s/p lumpectomy and SLN and RT LABS FINAL DIAGNOSIS 09/23/18 Breast, left, core biopsy: - Invasive ductal carcinoma, with the following features: 1. Size: 12 mm. 2. Donnie score: 6/9. 3. Lymphvascular invasion: Not identified. 4. Stage: pT1c. - Biomarker results: ER 8/8 (positive), OK 8/8 (positive), Her2 IHC 1+ (negative). - Low to intermediate grade ductal carcinoma in situ, minute focus, with associated calcifications. FINAL DIAGNOSIS A. 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 B. Breast, left, lumpectomy: - Invasive ductal carcinoma, with the following features: 1. Size: 1.3 cm. 2. Donnie score: 6/9. 3. Margins: Invasive carcinoma 3 mm from the posterior margin. 4. Lymphvascular invasion: Not definitively identified. 5. Stage: pT1c snN1mi. 6. Biomarkers: HER2 1+ (ER and OK positive performed previously on [id number]). - Radial scar. - Intraductal papilloma (0.1 cm). - Sclerosing adenosis. - Focal fat necrosis and hemosiderin deposition, consistent with biopsy site changes. - Microcalcifications identified, associated with background breast tissue. - Background breast with fibrocystic changes including usual duct hyperplasia, apocrine metaplasia,columnar cell change, and duct ectasia. C. Breast, left, medial to deep margin, reexcision: - Benign breast tissue, negative for carcinoma. FINAL DIAGNOSIS JANUARY 2022 Breast, left, mass, ultrasound-guided core needle biopsy: - Breast tissue with dense mixed chronic inflammation with prominent foamy histiocytes, hemosiderinladen macrophages, multinucleated giant cells, stromal fibrosis, and fat necrosis, consistent with prior surgical site changes. - Mild sclerosing adenosis. SCANS BILATERAL DIAGNOSTIC DIGITAL MAMMOGRAM WITH TOMOSYNTHESIS, CAD AND LEFT LIMITED BREAST ULTRASOUND 02/06/22 IMPRESSION: 1. Mass within the left breast at the 11:00 position that may represent a complex cyst however a complex cystic mass cannot be excluded. OVERALL FINAL ASSESSMENT: BI-RADS CATEGORY 4: Suspicious Findings RECOMMENDATION: 1. Recommend ultrasound-guided core biopsy of the left breast mass. 2. These findings were discussed with the patient. ASSESSMENT and PLAN Ms. Cedillo is a 76 y.o. woman with [id number] breast cancer, ER+/OK+/HER2-, NS 6. She has had lumpectomy. Dr. John Ag in [place] has completed her radiation. OncotypeDX RS=7, 11% recurrence, no benefit to chemo. Since her tumor is strongly ER/OK positive, I have recommended hormonal Rx with oral aromatase inhibitor. She is tolerating this well. Started January 2019. Bone density checked Jun 2021, normal - in [place]. Vitamin D, exercise reviewed. Liudmila January 2022 led to biopsy, neg RTC 6 months with [facility] TOBACCO COUNSELING She is not a tobacco [...] Info) Description 03/19/2025 10:45 AM CDT Appointment [facility] [address] [place] [address] Caron Mohan MD [address] [place] [phone] 03/19/2025 11:30 AM CDT Office Visit [facility] Oncology and Hematology [address] [place] [address] Caron Mohan MD [address] [place] [address] [place] [address] [facility] [address] [place] [address] documented as of this encounter Results * MAMMO DIAG BILAT 3D CATHY W OR WO CAD (02/12/2023 11:09 AM CDT) Anatomical Region Laterality Modality Breast Bilateral Mammography 02/12/2023 11:1 0 AM CDT Impressions 02/12/2023 1:27 PM CDT IMPRESSION: ?? No mammographic evidence of malignancy. RECOMMENDATIONS: ?? Bilateral diagnostic mammogram in one year. DICTATION LOCATION: ??Cindy Echevarria 02/12/2023 1:27 PM CDT EXAM: BILATERAL DIAGNOSTIC FULL-FIELD DIGITAL MAMMOGRAM WITH CAD WITH 3D TOMOSYNTHESIS DATE: 02/12/2023 11:09 AM HISTORY: Personal history of breast cancer with prior left conservation therapy. TECHNIQUE: Mediolateral oblique, mediolateral and craniocaudal views of both breasts were performed using full-field digital mammography. Low-dose full-field digital breast tomosynthesis examination was performed with 2D and 3D acquisitions. ??Examination is read in conjunction with computer aided detection. COMPARISON: March 2016 through January 2022. BREAST COMPOSITION: The breasts are heterogeneously dense, which may obscure small masses. FINDINGS: Mammographic changes consistent with breast conservation therapy on the left are noted. No suspicious findings are seen on the mammogram. Since the prior exam, there has been no significant change. Computer aided detection detected no significant abnormality. OVERALL FINAL ASSESSMENT: ??BI-RADS CATEGORY 2 - Benign findings Procedure Note Fortino Coleman MD - 02/12/2023 EXAM: BILATERAL DIAGNOSTIC FULL-FIELD DIGITAL MAMMOGRAM WITH CAD WITH 3D TOMOSYNTHESIS DATE: 02/12/2023 11:09 AM HISTORY: Personal history of breast cancer with prior left conservation therapy. TECHNIQUE: Mediolateral oblique, mediolateral and craniocaudal views of both breasts were performed using full-field digital mammography. Low-dose full-field digital breast tomosynthesis examination was performed with 2D and 3D acquisitions. Examination is read in conjunction with computer aided detection. COMPARISON: March 2016 through January 2022. BREAST COMPOSITION: The breasts are heterogeneously dense, which may obscure small masses. FINDINGS: Mammographic changes consistent with breast conservation therapy on the left are noted. No suspicious findings are seen on the mammogram. Since the prior exam, there has been no significant change. Computer aided detection detected no significant abnormality. OVERALL FINAL ASSESSMENT: BI-RADS CATEGORY 2 - Benign findings IMPRESSION: No mammographic evidence of malignancy. RECOMMENDATIONS: Bilateral diagnostic mammogram in one year. DICTATION LOCATION: [facility] aCron Mohan MD MAMMO ORDERABLES documented in this encounter Visit Diagnoses Diagnosis Malignant neoplasm of upper-inner quadrant of left breast in female, estrogen receptor positive- Primary History of endometrial cancer Personal history of malignant neoplasm of other parts of uterus Rheumatoid arthritis with rheumatoid factor of multiple sites without organ or systems involvement Malignant neoplasm of upper-inner quadrant of left breast in female, estrogen receptor positive documented in this encounter Care Teams Lending Activities Supervisor Relationship Specialty Start Date End Date Francisco Long MD PCP - General Internal Medicine 06/27/18 documented as of this encounter
--- OUTSIDE RECORDS SUMMARY | 2024-11-16 13:26 | XMS_ITS | Encounter Summary ---
Author Organization [facility] Address [address] [place] [address] Care Team Providers Care Hospital Pharmacy Technician Name Role Phone Francisco Long MD Primary Care Provider Unavailabl e Reason for Visit * Reason Comments Follow Up 6 months Encounter Details Date Type Department Care Team (Late st Contact Info) Description 05/10/2020 10:15 AM CDT Office Visit [facility] ONCOLOGY AND HEMATOLOGY-[place] [address] [facility] [address] [place] [address] Caron Mohan MD [address] [place], [place] [id number] Malignant neoplasm of upper-inner quadrant of left breast in female, estrogen receptor positive (Primary Dx); Rheumatoid arthritis with rheumatoid factor of multiple sites without organ or systems involvement; History of endometrial cancer; Iron deficiency anemia due to chronic blood loss; Personal history of DVT (deep vein thrombosis) Social History [...] have Coronavirus / COVID-19? No / Unsure 05/10/2020 9:29 AM CDT documented as of this encounter Last Filed Vital Signs Vital Sign Reading Time Taken Comments Blood Pressure 116/78 05/10/2020 10:15 AM CDT Pulse 65 05/10/2020 10:15 AM CDT Temperature 36.8 ??C (98.2 ??F) 05/10/2020 10:15 AM C DT Respiratory Rate - - Oxygen Saturation 96% 05/10/2020 10:15 AM CDT Inhaled Oxygen Concentration - - Weight 83.5 kg (184 lb) 05/10/2020 10:15 AM CDT Height 170.2 cm (5' 7 ) 05/10/2020 10:15 AM CDT Body Mass Index 28.82 05/10/2020 10:15 AM CDT documented in this encounter Progress Notes * Caron Mohan MD - 05/10/2020 10:22 AM CDT [facility] Oncology and Hematology Date of Service: 05/10/2020 Patient: Jolene Cedillo : 1945 HPI Ms. [...] clot after knee surgery. DEXA 2017 at [facility] but unable to access results. INTERVAL HX Tolerating AI well. Rare HF. RA is stable on MTX. Liudmila Oct 2019 neg - no breast concerns. Pulmonary embolism Nov 2019. Doppler neg for DVT. Anticoagulation led to anemia (Hgb 7) required RBC tx due to GI bleed. Also got IV iron Scoped from above and below, only found gastritis, started PPI Energy level is good now, no more bleeding. She has f/u soon with PCP with labs. H/o postop blood clot after TKR in the past - ?hypercoagulable state Patient History Past Medical History: Diagnosis Date [...] ??? 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 KS BX/REMV,LYMPH NODE,DEEP AXILL Left 11/22/2018 LEFT AXILLARY SENTINEL LYMPH NODE BIOPSY WITH NUC MED AT 7:45 AM performed by Ita Vazquez MD at [facility] OR ??? KS LAP,LYMPH NODE BX N/A 07/09/2018 PELVIC LYMPH NODE STAGING DAVINCI SI performed by Micki Cadena MD at [facility] OR [facility] ??? KS LAP,RMV ADNEXAL STRUCTURE Bilateral 07/09/2018 SALPINGO-OOPHORECTOMY DAVINCI SI performed by Micki Cadena MD at [facility] OR [facility] ??? KS LAPAROSCOPY W TOT HYSTERECT UTERUS 250 GRAM OR LESS N/A 07/09/2018 HYSTERECTOMY TOTAL DAVINCI SI performed by Micki Cadena MD at [facility] ??? KS MASTECTOMY, PARTIAL Left 11/22/2018 LEFT BREAST LUMPECTOMY WITH NLOC @ 8:30 AM performed by Ita Vazquez MD at [facility] OR Social History Socioeconomic History ??? Marital status: Spouse name: Not on file ??? Number of children: Not on file ??? Years of education: Not on file ??? Highest education level: Not on file Occupational History ??? Not on file Social Needs ??? Financial resource strain: Not on file ??? Food insecurity Worry: Not on file Inability: Not on file ??? Transportation needs Medical: Not on file Non-medical: Not on file Tobacco Use ??? Smoking status: Never Smoker ??? Smokeless tobacco: Never Used Substance and Sexual Activity ??? Alcohol use: Yes Comment: rare ??? Drug use: No ??? Sexual activity: Not on file Lifestyle ??? Physical activity Days per week: Not on file Minutes per session: Not on file ??? Stress: Not on file Relationships ??? Social connections Talks on phone: Not on file Gets together: Not on file Attends synagogue service: Not on file Active member of club or organization: Not on file Attends meetings of clubs or organizations: Not on file Relationship status: Not on file ??? Intimate partner violence Fear of current or ex partner: Not [...] Refill ??? carvediloL (COREG) 6.25 mg tablet Take 6.25 mg by mouth 2 times daily with meals. ??? apixaban (Eliquis) 5 mg tablet Take 5 mg by mouth 2 times daily. ??? letrozole (FEMARA) 2.5 mg Tablet TAKE 1 TABLET(2.5 MG) BY MOUTH DAILY 90 Tablet 4 ??? Cholecalciferol, Vitamin D3, (VITAMIN D3) 2,000 unit Capsule Take 1 Capsule by mouth daily. ??? calcium carbonate + vitamin D (CALTRATE+D) 600 mg(1,500mg) -400 unit Tablet Take 1 Tablet by mouth daily. 0 ??? HYDROcodone-acetaminophen (NORCO) 5-325 mg tablet Take [...] or rashes. Psych: No depression or anxiety. 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 Breasts: see HPI PHYSICAL EXAM BP 116/78 Pulse 65 Temp 98.2 ??F (36.8 ??C) Ht 5' 7 (1.702 m) Wt 83.5 kg (184 lb) SpO2 96% BMI 28.82 kg/m?? ECOG PS = 0 General appearance: [...] pT1c. - Biomarker results: ER 8/8 (positive), KS 8/8 (positive), Her2 IHC 1+ (negative). - Low to intermediate grade ductal carcinoma in situ, minute focus, with associated calcifications. FINAL DIAGNOSIS A. 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 ?? B. Breast, left, lumpectomy: - Invasive ductal carcinoma, with the following features: 1. Size: 1.3 cm. 2. Donnie score: 6/9. 3. Margins: Invasive carcinoma 3 mm from the posterior margin. 4. Lymphvascular invasion: Not definitively identified. 5. Stage: pT1c snN1mi. 6. Biomarkers: HER2 1+ (ER and KS positive performed previously on [id number]). - Radial scar. - Intraductal papilloma (0.1 [...] with prior left conservation therapy. DICTATION LOCATION: [facility] COMPARISON: 05/14/2019 and older. TECHNIQUE: Mediolateral oblique, [...] Recommendation: Annual mammography is recommended. DICTATION LOCATION: [facility] ASSESSMENT and PLAN Ms. Cedillo is a 74 y.o. woman with [id number] breast cancer, ER+/KS+/HER2-, NS 6. She has had lumpectomy. Dr. John Ag in [place] has completed her radiation. OncotypeDX RS=7, 11% recurrence, no benefit to chemo. Since her tumor is strongly ER/KS positive, I have recommended hormonal Rx with oral aromatase inhibitor. She is tolerating this well. Bone density checked February 2019, normal Vitamin D = 29, rec double dose RTC 6 months OTHER ISSUES: H/o endometrial cancer - very early stage, f/u with Dr. Surinder BERNARDO - continue MTX Discussed genetic testing due to breast and endometrial cancer, but she does not have children. Pulmonary embolism - I recommended continued anticoagulation. Her previous clot was provoked but not this one. A hypercoagulable workup with lab testing would not change my recommendation. SERM such as Tamoxifen can promote clotting, but AI such as letrozole should not. Discussed risk/benefit of clot/bleeding which needs to be re-evaluated periodically as her health changes. TOBACCO COUNSELING She is not a tobacco [...] Info) Description 03/19/2025 10:45 AM CDT Appointment [facility] [address] [place] [address] Caron Mohan MD [address] [place] [address] 03/19/2025 11:30 AM CDT Office Visit [facility] Oncology and Hematology [place] [address] [place] [phone] Caron Mohan MD [address] [place] [address] [place] [address] [place] [address] documented as of this encounter Visit Diagnoses Diagnosis Malignant neoplasm of upper-inner quadrant of left breast in female, estrogen receptor positive- Primary Rheumatoid arthritis with rheumatoid factor of multiple sites without organ or systems involvement History of endometrial cancer Personal history of malignant neoplasm of other parts of uterus Iron deficiency anemia due to chronic blood loss Iron deficiency anemia secondary to blood loss (chronic) Personal history of DVT (deep vein thrombosis) Personal history of venous thrombosis and embolism documented in this encounter Care Teams Hospital Pharmacy Technician Relationship Specialty Start Date End Date Francisco Long MD PCP - General Internal Medicine 06/27/18 documented as of this encounter
--- OUTSIDE RECORDS SUMMARY | 2024-11-16 13:26 | XMS_ITS | Encounter Summary ---
Author Organization [facility] Address [address] [place] [address] Care Team Providers Care Correction Officer Supervisor Name Role Phone Francisco Long MD Primary Care Provider Unavailabl e Encounter Details Date Type Department Care Team (Late Contact Info) Description 06/30/2021 Orders Only [facility] ONCOLOGY AND HEMATOLOGY-[place] [address] [place] [address] Magalie Shin Malignant neoplasm of upper-inner quadrant of left breast in female, estrogen receptor positive; Asymptomatic menopausal state Social History Tobacco Use Types Packs/Day Years [...] have Coronavirus / COVID-19? No / Unsure 06/08/2021 10:11 AM CDT documented as of this encounter Plan of Treatment Upcoming Encounters Date Type Department Care Team (Late Contact Info) Description 03/19/2025 10:45 AM CDT Appointment [facility] [address] [place] [address] Caron Mohan MD [address] [place] [address] 03/19/2025 11:30 AM CDT Office Visit [facility] Oncology and Hematology [place] [address] [place] [address] Caron Mohan MD [address] [place] [address] [place] [address] [place] [address] documented as of this encounter Visit Diagnoses Diagnosis Malignant neoplasm of upper-inner quadrant of left breast in female, estrogen receptor positive Asymptomatic menopausal state Asymptomatic postmenopausal status (age-related) (natural) documented in this encounter Care Teams Correction Officer Supervisor Relationship Specialty Start Date End Date Francisco Long MD PCP - General Internal Medicine 06/27/18 documented as of this encounter
--- OUTSIDE RECORDS SUMMARY | 2024-11-16 13:26 | XMS_ITS | Encounter Summary ---
Author Organization [facility] Address [address] [place] [address] Care Team Providers Care Coder Name Role Phone Francisco Long MD Primary Care Provider Unavailabl e Reason for Visit * Reason Comments Follow Up Encounter Details Date Type Department Care Team (Late st Contact Info) Description 02/06/2022 3:00 PM CDT Office Visit [facility] ONCOLOGY AND HEMATOLOGY-[place] [address] [place] [address] Caron Mohan MD [address] [place], [place] [phone] Malignant neoplasm of upper-inner quadrant of left breast in female, estrogen receptor positive (Primary Dx); History of endometrial cancer; Rheumatoid arthritis with rheumatoid factor of multiple sites without organ or systems involvement; Personal history of DVT (deep vein thrombosis); Abnormal mammogram of left breast Social History Tobacco Use Types Packs/Day [...] have Coronavirus / COVID-19? No / Unsure 02/06/2022 1:18 PM CDT documented as of this encounter Last Filed Vital Signs Vital Sign Reading Time Taken Comments Blood Pressure 140/68 02/06/2022 2:58 PM CDT Pulse 97 02/06/2022 2:58 PM CDT Temperature 36.4 ??C (97.5 ??F) 02/06/2022 2:58 PM CD T Respiratory Rate - - Oxygen Saturation 94% 02/06/2022 2:58 PM CDT Inhaled Oxygen Concentration - - Weight 85.7 kg (189 lb) 02/06/2022 2:58 PM CDT Height 170.2 cm (5' 7 ) 02/06/2022 2:58 PM CDT Body Mass Index 29.6 02/06/2022 2:58 PM CDT documented in this encounter Progress Notes * Caron Mohan MD - 02/06/2022 3:02 PM CDT [facility] Oncology and Hematology Date of Service: 02/06/2022 Patient: Jolene Cedillo : 1945 HPI Ms. [...] clot after knee surgery. DEXA 2017 at [facility] but unable to access results. INTERVAL HX Tolerating AI well. Rare HF. On MTX for RA Liudmila today is abnormal, needs biopsy Current Outpatient Medications Medication Sig Dispense Refill ??? letrozole (FEMARA) 2.5 mg tablet TAKE 1 TABLET(2.5 MG) BY MOUTH DAILY 90 Tablet 4 ??? losartan (COZAAR) 100 mg tablet TAKE 1 TABLET BY MOUTH EVERY DAY ??? rosuvastatin (CRESTOR) 5 mg tablet Take 5 mg by mouth daily. ??? OTHER PM Lubricant Eye Ointment ??? carvediloL (COREG) 6.25 mg tablet Take 6.25 mg by mouth 2 times daily with meals. ??? Cholecalciferol, Vitamin D3, (VITAMIN D3) 2,000 unit Capsule Take 1 Capsule by mouth daily. ??? calcium carbonate + vitamin D (CALTRATE+D) 600 mg(1,500mg) -400 unit Tablet Take 1 Tablet by mouth daily. 0 ??? methotrexate (RHEUMATREX) 2.5 mg Tablet Take 2.5 mg by mouth every 7 days. 6 tabs on Sunday' No current facility-administered medications for this visit. ROS: Negative except as in HPI PHYSICAL EXAM BP (!) 140/68 (BP Location: Right arm, Patient Position (BP): Sitting, BP Cuff Size: Adult) Pulse97 Temp 97.5 ??F (36.4 ??C) (Oral) Ht 5' 7 (1.702 m) Wt 85.7 kg (189 lb) SpO2 94% BMI 29.60 kg/m?? ECOG PS = 0 General appearance: alert, cooperative, no distress, appears stated age HEENT resolving Shi's palsy Lungs: clear to auscultation bilaterally Heart: regular rate and rhythm, S1, S2 normal, no murmur, click, rub or gallop Abdomen: soft, non-tender. Bowel sounds normal. No masses, No organomegaly Extremities: no edema Skin: No rashes or lesions Lymph nodes: No adenopathy Neuro: No obvious focal deficit Breasts: right -no masses, skin changes, or nipple changes Left - s/p lumpectomy and SLN and RT Firm mass at scar, 2 cm LABS FINAL DIAGNOSIS 09/23/18 Breast, left, core biopsy: - Invasive ductal carcinoma, with the following features: 1. Size: 12 mm. 2. Donnie score: 6/9. 3. Lymphvascular invasion: Not identified. 4. Stage: pT1c. - Biomarker results: ER 8/8 (positive), VT 8/8 (positive), Her2 IHC 1+ (negative). - Low to intermediate grade ductal carcinoma in situ, minute focus, with associated calcifications. FINAL DIAGNOSIS A. 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 ?? B. Breast, left, lumpectomy: - Invasive ductal carcinoma, with the following features: 1. Size: 1.3 cm. 2. Donnie score: 6/9. 3. Margins: Invasive carcinoma 3 mm from the posterior margin. 4. Lymphvascular invasion: Not definitively identified. 5. Stage: pT1c snN1mi. 6. Biomarkers: HER2 1+ (ER and VT positive performed previously on [id number]). - Radial scar. - Intraductal papilloma (0.1 [...] Benign breast tissue, negative for carcinoma. SCANS BILATERAL DIAGNOSTIC DIGITAL MAMMOGRAM WITH TOMOSYNTHESIS, CAD AND LEFT LIMITED BREAST ULTRASOUND 02/06/22 Mammogram: Postoperative changes within the left breast consistent with breast conservation therapy. There is an enlarging iso to hyperdense predominantly circumscribed mass within the anterior left breast at approximately the 11:00 position. This measures 2.1 cm on today's study. The right breast is unremarkable with no concerning developing abnormalities. Ultrasound: Targeted ultrasound of the left breast was performed. At the 11:00 position 3 cm from the nipple there is a parallel oriented mass measuring 2.0 x 1.4 x 1.5 cm with heterogeneous echogenicity and mildly thickened decker. This may represent a complex cyst however no motion was identified within the internal material. No blood flow is identified to the mass. IMPRESSION: 1. Mass within the left breast at the 11:00 position that may represent a complex cyst however a complex cystic mass cannot be excluded. OVERALL FINAL ASSESSMENT: BI-RADS CATEGORY 4: Suspicious Findings RECOMMENDATION: 1. Recommend ultrasound-guided core biopsy of the left breast mass. 2. These findings were discussed with the patient. ASSESSMENT and PLAN Ms. Cedillo is a 76 y.o. woman with [id number] breast cancer, ER+/VT+/HER2-, NS 6. She has had lumpectomy. Dr. John Ag in [place] has completed her radiation. OncotypeDX RS=7, 11% recurrence, no benefit to chemo. Since her tumor is strongly ER/VT positive, I have recommended hormonal Rx with oral aromatase inhibitor. She is tolerating this well. Started January 2019. Bone density checked February 2019, normal - needs recheck - will do this in [place]. Vitamin D, exercise reviewed. Liudmila today is abnormal, needs biopsy, ordered I will call her with results. Discussed probable need for mastectomy if cancer has recurred. TOBACCO COUNSELING She is not a tobacco [...] Info) Description 03/19/2025 10:45 AM CDT Appointment [facility] [address] [place] [phone] Caron Mohan MD [address] [place] [phone] 03/19/2025 11:30 AM CDT Office Visit [facility] Oncology and Hematology [place] [address] [place] [address] Caron Mohan MD [address] [facility] [address] [place] [id number] [place] [address] [place] [address] documented as of this encounter Visit Diagnoses Diagnosis Malignant neoplasm of upper-inner quadrant of left breast in female, estrogen receptor positive- Primary History of endometrial cancer Personal history of malignant neoplasm of other parts of uterus Rheumatoid arthritis with rheumatoid factor of multiple sites without organ or systems involvement Personal history of DVT (deep vein thrombosis) Personal history of venous thrombosis and embolism Abnormal mammogram of left breast documented in this encounter Care Teams Coder Relationship Specialty Start Date End Date Francisco Long MD PCP - General Internal Medicine 06/27/18 documented as of this encounter
--- OUTSIDE RECORDS SUMMARY | 2024-11-16 13:26 | XMS_ITS | Encounter Summary ---
Author Organization [facility] Address [address] [place] [address] Care Team Providers Care Traveling Storekeeper Name Role Phone Francisco Long MD Primary [...] BI CHG DIGITAL BREAST [place] [address] [place] [address] Referral ID Status Reason Start Date Expiration Date Visits Re quested Visits Authorized [id number] Closed 11/12/2019 12/12/2020 1 1 T POTATO DISINTEGRATOR Reason for Visit * Radiology Services (Routine) - Closed Specialty Diagnoses / Procedures Referred By Halima garcia Referred To Contact Diagnoses Malignant neoplasm of upper-inner quadrant of left breast in female, estrogen receptor positive Procedures MAMMO DIAG BILAT 3D CATHY W OR WO CAD CHG DIAGNOSTIC MAMMOGRAPHY COMPUTER-AIDED DETCJ BI CHG DIGITAL BREAST T[place] [address] [place] [address] Referral ID Status Reason Start Date Expiration Date Visits Re quested Visits Authorized [id number] Closed 11/12/2019 12/12/2020 1 1 Encounter Details Date Type Department Care Team (Latest Contact Info) Description 12/01/2020 10:16 AM SWEET POTATO DISINTEGRATOR - 12/01/2020 11:59 PM SWEET POTATO DISINTEGRATOR Hospital Encounter [facility] [address] [place] [address] [place] [address] [place] [phone] Discharge Disposition: Home or Self Care Social [...] COVID-19? No / Unsure 12/01/2020 10:08 AM SWEET POTATO DISINTEGRATOR documented as of this encounter Medications at [...] mouth every 7 days. 6 tabs on pantoprazole (PROTONIX) 40 mg Tablet, Delayed Release [...] Info) Description 03/19/2025 10:45 AM CDT Appointment [facility] [address] [place] [phone] Caron Mohan MD [address] [facility] [address] [place], [place] [id number] 03/19/2025 11:30 AM CDT Office Visit [facility] Oncology and Hematology [place] [address] [facility] [address] [place] [address] Caron Moahn MD [address] [place], [place] [phone] [place] [address] [facility] [address] [place] [address] documented as of this encounter Procedures Procedure Name Priority Date/Time Associated Diagnosis Comments MAMMO DIAG BILAT 3D CATHY W OR WO CAD Routine 12/01/2020 10:36 AM SWEET POTATO DISINTEGRATOR Malignant neoplasm of upper-inner quadrant of left breast in female, estrogen receptor positive documented in this encounter Results * MAMMO DIAG BILAT 3D CATHY W OR WO CAD (12/01/2020 10:36 AM SWEET POTATO DISINTEGRATOR) Anatomical Region Laterality Modality Breast Bilateral Mammography 12/01/2020 10:3 6 AM SWEET POTATO DISINTEGRATOR Impressions 12/01/2020 12:38 PM SWEET POTATO DISINTEGRATOR IMPRESSION: No evidence of malignancy within either breast. RECOMMENDATION: Annual mammography is recommended. DICTATION LOCATION: ??Cindy Long Narrative 12/01/2020 12:38 PM SWEET POTATO DISINTEGRATOR BILATERAL FULL-FIELD DIGITAL DIAGNOSTIC MAMMOGRAM WITH 3-D [...] ??BI-RADS CATEGORY 2: Benign findings. Procedure Note ChambersFortino MD - 12/01/2020 BILATERAL FULL-[place] DIGITAL DIAGNOSTIC [...] RECOMMENDATION: Annual mammography is recommended. DICTATION LOCATION: [facility] Ita Vazquez MD MAMMO ORDERABLES documented in this encounter Visit Diagnoses Diagnosis Malignant neoplasm of upper-inner quadrant of left breast in female, estrogen receptor positive documented in this encounter Care Teams Traveling Storekeeper Relationship Specialty Start Date End Date Francisco Long MD PCP - General Internal Medicine 06/27/18 documented as of this encounter
--- OUTSIDE RECORDS SUMMARY | 2024-11-16 13:26 | XMS_ITS | Encounter Summary ---
Author Organization [facility] Address [address] [place] [address] Care Team Providers Care Viscosity Inspector Name Role Phone Francisco Long MD [...] Mohan MD [address] [place] [id number] Referral ID Status Reason Start Date Expiration Date Visits Re quested Visits Authorized [id number] Closed 06/08/2021 07/09/2022 1 1 Reason for Visit * Radiology Services (Routine) - Closed Specialty Diagnoses / Procedures Referred By Halima garcia Referred To Contact Diagnoses Malignant neoplasm of upper-inner quadrant of left breast in female, estrogen receptor positive Procedures MAMMO DIAG BILAT 3D CATHY W OR WO CAD CHG DIAGNOSTIC MAMMOGRAPHY COMPUTER-AIDED DETCJ BI CHG DIGITAL BREAST TOMOSYNTHESIS BILATERAL Caron Mohan MD [address] [facility] [address] [place] [address] Referral ID Status Reason Start Date Expiration Date Visits Re quested Visits Authorized [id number] Closed 06/08/2021 07/09/2022 1 1 Encounter Details Date Type Department Care Team (Latest Contact Info) Description 02/06/2022 1:22 PM CDT - 02/06/2022 11:59 PM CDT Hospital Encounter [facility] [address] [place] [address] Caron Mohan MD [address] [place] [address] Discharge Disposition: Home or Self Care Social [...] PM CDT documented as of this encounter Medications at Time of Discharge Medication Sig Dispensed Refills Start Date End Date losartan (COZAAR) 100 mg tablet TAKE 1 TABLET BY MOUTH EVERY DAY 09/24/2020 OTHER PM Lubricant Eye Ointment Cholecalciferol, Vitamin D3, (VITAMIN D3) 2,000 unit CapsuleIndications:Vit ludwig D deficiency Take 1 Capsule by mouth daily. 05/26/2019 calcium carbonate + vitamin D (CALTRATE+D) 600 mg(1,500mg) -400 unit Tablet Take 1 Tablet by mouth daily. 0 02/12/2019 methotrexate (RHEUMATREX) 2.5 mg Tablet Take 2.5 mg by mouth every 7 days. 6 tabs on letrozole (FEMARA) 2.5 mg tabletIndications:Josiane gnant neoplasm of upper-inner quadrant of left breast in female, estrogen receptor positive,Menopause,ER+ (estrogen receptor positive status) TAKE 1 TABLET(2.5 MG) BY MOUTH DAILY 90 Tablet 4 06/21/2021 10/02/2022 rosuvastatin (CRESTOR) 5 mg tablet Take 5 mg by mouth daily. 03/25/2021 03/25/2022 documented as of this encounter Plan of Treatment Upcoming Encounters Date Type Department Care Team (Late st Contact Info) Description 03/19/2025 10:45 AM CDT Appointment [facility] [address] [address] [place] [address] Caron Mohan MD [address] [place] [address] 03/19/2025 11:30 AM CDT Office Visit [facility] Oncology and Hematology [place] [address] [place] [address] Caron Mohan MD [address] [place] [address] [place] [address] [facility] [address] [place] [address] documented as of this encounter Procedures Procedure Name Priority Date/Time Associated Diagnosis Comments MAMMO DIAG BILAT 3D CATHY W OR WO CAD Routine 02/06/2022 1:44 PM CDT Malignant neoplasm of upper-inner quadrant of left breast in female, estrogen receptor positive documented in this encounter Results * (ABNORMAL) MAMMO DIAG BILAT 3D CATHY W OR WO CAD (02/06/2022 1:44 PM CDT) Anatomical Region Laterality Modality Breast Bilateral Mammography 02/06/2022 1:45 PM CDT Impressions 02/06/2022 3:23 PM CDT IMPRESSION: 1. Mass within the left breast at the 11:00 position that may represent a complex cyst however a complex cystic mass cannot be excluded. OVERALL FINAL ASSESSMENT: ??BI-RADS CATEGORY 4: Suspicious Findings RECOMMENDATION: ?? 1. Recommend ultrasound-guided core biopsy of the left breast mass. 2. These findings were discussed with the patient. ?? Narrative 02/06/2022 3:23 PM CDT BILATERAL DIAGNOSTIC DIGITAL MAMMOGRAM WITH TOMOSYNTHESIS, CAD AND LEFT LIMITED BREAST ULTRASOUND DATE: 02/06/2022 1:44 PM ?? DICTATION LOCATION: ??[facility] INDICATION: Yearly exam, history of left-sided breast cancer TECHNIQUE: Diagnostic mammograms of the bilateral breasts were performed on a digital system. 2D and 3D acquisitions were obtained. CAD was utilized. In addition, a targeted ultrasound of the left breast was performed. COMPARISON: Comparison made to multiple prior studies dating back to 03/28/2016. BREAST COMPOSITION: Scattered fibroglandular densities. FINDINGS: ?? Mammogram: Postoperative changes within the left breast [...] blood flow is identified to the mass. Procedure Note Joaquín Keane MD - 02/06/2022 BILATERAL DIAGNOSTIC DIGITAL MAMMOGRAM WITH TOMOSYNTHESIS, CAD AND LEFT LIMITED BREAST ULTRASOUND DATE: 02/06/2022 1:44 PM DICTATION LOCATION: [facility] INDICATION: Yearly exam, history of left-sided breast cancer TECHNIQUE: Diagnostic mammograms of the bilateral breasts were performed on a digital system. 2D and 3D acquisitions were obtained. CAD was utilized. In addition, a targeted ultrasound of the left breast was performed. COMPARISON: Comparison made to multiple prior studies dating back to 03/28/2016. BREAST COMPOSITION: Scattered fibroglandular densities. FINDINGS: Mammogram: Postoperative changes within the left breast [...] These findings were discussed with the patient. Caron Mohan MD MAMMO ORDERABLES documented in this encounter Visit Diagnoses Diagnosis Malignant neoplasm of upper-inner quadrant of left breast in female, estrogen receptor positive documented in this encounter Care Teams Viscosity Inspector Relationship Specialty Start Date End Date Francisco Long MD PCP - General Internal Medicine 06/27/18 documented as of this encounter
--- OUTSIDE RECORDS SUMMARY | 2024-11-16 13:26 | XMS_ITS | Encounter Summary ---
Author Organization [facility] Address [address] [place] [address] Care Team Providers Care Ladle Repairer Name Role Phone Francisco Long MD Primary Care Provider Unavailabl e Encounter Details Date Type Department Care Team (Late st Contact Info) Description 06/09/2019 [facility] [address] [place] [address] Enma Verdugo RN Social History Tobacco Use Types Packs/Day [...] as of this encounter Progress Notes * Enma Verdugo RN - 06/09/2019 1:04 PM CDT Treatment Summary and Survivorship Plan mailed to home for review. Marked as complete on 06/09/19. Patient is encouraged to call the [facility] office with any additional questions or concerns. Enma Verdugo RN BS BSN Breast Health Nurse Navigator-[facility] documented in this encounter Plan of Treatment Upcoming Encounters Date Type Department Care Team (Late st Contact Info) Description 03/19/2025 10:45 AM CDT Appointment [facility] [address] [place] [address] Caron Mohan MD [address] [place] [address] 03/19/2025 11:30 AM CDT Office Visit [facility] Oncology and Hematology [address] [place] [address] Caron Mohan MD [address] [place] [address] [place] [address] [address] [place] [address] documented as of this encounter Visit Diagnoses Not on filedocumented in this encounter Care Teams Ladle Repairer Relationship Specialty Start Date End Date Francisco Long MD PCP - General Internal Medicine 06/27/18 documented as of this encounter
--- OUTSIDE RECORDS SUMMARY | 2024-11-16 13:26 | XMS_ITS | Encounter Summary ---
Author Organization [facility] Address [address] Worrell: [place] [address] Care Team Providers Care Surveyor Oil Well Directional Name Role Phone Francisco Long MD Primary Care Provider Unavailabl e Encounter Details Date Type Department Care Team (Latest Contact Info) Description 08/09/2022 Travel Social History Tobacco Use Types Packs/Day [...] Info) Description 03/19/2025 10:45 AM CDT Appointment [facility] [address] [place] [address] Caron Mohan MD [address] [place] [phone] 03/19/2025 11:30 AM CDT Office Visit [facility] Oncology and Hematology [address] [place] [address] Caron Mohan MD [address] [place] [phone] [place] [address] [place] [address] documented as of this encounter Visit Diagnoses Not on filedocumented in this encounter Care Teams Surveyor Oil Well Directional Relationship Specialty Start Date End Date Francisco Long MD PCP - General Internal Medicine 06/27/18 documented as of this encounter
--- OUTSIDE RECORDS SUMMARY | 2024-11-16 13:26 | XMS_ITS | Encounter Summary ---
Author Organization [facility] Address [address] [place] [address] Care Team Providers Care Speech Professor Name Role Phone Francisco Long MD Primary Care Provider Unavailabl e Reason for Visit * Reason Onset Date Comments Results 02/16/2022 Encounter Details Date Type Department Care Team (Late st Contact Info) Description 02/16/2022 Telephone [facility] ONCOLOGY AND HEMATOLOGY-[place] [address] [facility] [address] [place] [address] Caron Mohan MD [address] [place], [place] [phone] Results Social History Tobacco Use Types Packs/Day Years [...] have Coronavirus / COVID-19? No / Unsure 02/14/2022 9:58 AM CDT documented as of this encounter Miscellaneous Notes * Telephone Encounter - Pricilla Olsen RN - 02/16/2022 12:37 PM CDT ----- Message from Caron Mohan MD sent at 02/16/2022 12:16 PM CDT ----- 02/14/2022--Please let her know biopsy is benign Followup in Sept as planned, 08/09/2022 Verbalized understanding documented in this encounter Plan of Treatment Upcoming Encounters Date Type Department Care Team (Late st Contact Info) Description 03/19/2025 10:45 AM CDT Appointment [facility] [address] [place] [address] Caron Mohan MD [address] [place], [place] [phone] 03/19/2025 11:30 AM CDT Office Visit [facility] Oncology and Hematology [address] Long [address] [place] [address] Caron Mohan MD [address] [facility] [address] [place] [address] [place] [address] [place] [address] documented as of this encounter Visit Diagnoses Not on filedocumented in this encounter Care Teams Speech Professor Relationship Specialty Start Date End Date Francisco Long MD PCP - General Internal Medicine 06/27/18 documented as of this encounter
--- OUTSIDE RECORDS SUMMARY | 2024-11-16 13:26 | XMS_ITS | Encounter Summary ---
Author Organization [facility] Address [address] Worrell: [place] [address] Care Team Providers Care Marine Pipefitter Name Role Phone Francisco Long MD Primary Care Provider Unavailabl e Encounter Details Date Type Department Care Team (Latest Contact Info) Description 02/06/2023 Travel Social History Tobacco Use Types Packs/Day [...] suspected to have Coronavirus/COVID-19? No / Unsure 02/06/2023 10:34 AM CDT documented as of this encounter Plan of Treatment Upcoming Encounters Date Type Department Care Team (Late st Contact Info) Description 03/19/2025 10:45 AM CDT Appointment [facility] [address] [place] [address] Caron Mohan MD [address] [place] [phone] 03/19/2025 11:30 AM CDT Office Visit [facility] Oncology and Hematology Justin [address] [place] [address] Caron Mohan MD [address] [place] [phone] [place] [address] [place] [address] documented as of this encounter Visit Diagnoses Not on filedocumented in this encounter Care Teams Marine Pipefitter Relationship Specialty Start Date End Date Francisco Long MD PCP - General Internal Medicine 06/27/18 documented as of this encounter
--- OUTSIDE RECORDS SUMMARY | 2024-11-16 13:26 | XMS_ITS | Encounter Summary ---
Author Organization [facility] Address [address] Worrell: [place] [address] Care Team Providers Care Environmental Epidemiologist Name Role Phone Francisco Long MD Primary Care Provider Unavailabl e Encounter Details Date Type Department Care Team (Latest Contact Info) Description 02/14/2022 Travel Social History Tobacco Use Types Packs/Day [...] Info) Description 03/19/2025 10:45 AM CDT Appointment [facility] [address] [place] [address] Caron Mohan MD [address] [place] [phone] 03/19/2025 11:30 AM CDT Office Visit [facility] Oncology and Hematology Justin [address] [place] [address] Caron Mohan MD [address] [place] [address] [place] [address] [place] [address] documented as of this encounter Visit Diagnoses Not on filedocumented in this encounter Care Teams Environmental Epidemiologist Relationship Specialty Start Date End Date Francisco Long MD PCP - General Internal Medicine 06/27/18 documented as of this encounter
--- OUTSIDE RECORDS SUMMARY | 2024-11-16 13:26 | XMS_ITS | Encounter Summary ---
Author Organization [facility] Address [address] [place] [address] Care Team Providers Care Gym Teacher Name Role Phone Francisco Long MD [...] DIGITAL BREAST [place] [address] [place] [address] Referral ID Status Reason Start Date Expiration Date Visits Re quested Visits Authorized [id number] Closed 05/14/2019 06/13/2020 1 1 EWATER ENGINEER Reason for Visit * Radiology Services (Routine) - Closed Specialty Diagnoses / Procedures Referred By Halima garcia Referred To Contact Diagnoses Malignant neoplasm of upper-inner quadrant of left breast in female, estrogen receptor positive Procedures MAMMO DIAG BILAT 3D CATHY W OR WO CAD CHG DIAGNOSTIC MAMMOGRAPHY COMPUTER-AIDED DETCJ BI CHG DIGITAL BREAST T[place] [address] [place] [address] Referral ID Status Reason Start Date Expiration Date Visits Re quested Visits Authorized [id number] Closed 05/14/2019 06/13/2020 1 1 Encounter Details Date Type Department Care Team (Latest Contact Info) Description 11/12/2019 8:45 AM WASTEWATER ENGINEER - 11/12/2019 11:59 PM WASTEWATER ENGINEER Hospital Encounter [facility] [address] [place] [address] [place] [address] [place] [address] Discharge Disposition: Home or Self Care [...] Sig Dispensed Refills Start Date End Date Cholecalciferol, Vitamin D3, (VITAMIN D3) 2,000 unit CapsuleIndications:Kimmie min D deficiency Take 1 Capsule by mouth daily. 05/26/2019 calcium carbonate + vitamin D (CALTRATE+D) 600 mg(1,500mg) -400 unit Tablet Take 1 Tablet by mouth daily. 0 02/12/2019 methotrexate (RHEUMATREX) 2.5 mg Tablet Take 2.5 mg by mouth every 7 days. 6 tabs on letrozole (FEMARA) 2.5 mg Tablet Take 1 Tablet (2.5 mg) by mouth daily. 90 Tablet 3 02/10/2019 02/16/2020 losartan-hydroCHLOROthi azide (HYZAAR) 100-12.5 mg tablet Take 1 Tablet by mouth daily. 06/08/2021 documented as of this encounter Plan of Treatment Upcoming Encounters Date Type Department Care Team (Late st Contact Info) Description 03/19/2025 10:45 AM CDT Appointment [facility] [address] [place] [address] Caron Mohan MD [address] [place] [address] 03/19/2025 11:30 AM CDT Office Visit [facility] Oncology and Hematology [address] [place] [address] Caron Mohan MD [address] [place] [address] [place] [address] [place] [address] documented as of this encounter Procedures Procedure Name Priority Date/Time Associated Diagnosis Comments MAMMO DIAG BILAT 3D CATHY W OR WO CAD Routine 11/12/2019 9:26 AM WASTEWATER ENGINEER Malignant neoplasm of upper-inner quadrant of left breast in female, estrogen receptor positive documented in this encounter Results * MAMMO DIAG BILAT 3D CATHY W OR WO CAD (11/12/2019 9:26 AM WASTEWATER ENGINEER) Anatomical Region Laterality Modality Breast Bilateral Mammography 11/12/2019 9:26 AM WASTEWATER ENGINEER Impressions 11/13/2019 3:59 PM WASTEWATER ENGINEER IMPRESSION: No suspicious findings to suggest malignancy in either breast. Annual mammography is recommended. OVERALL FINAL ASSESSMENT: ??BI-RADS CATEGORY 2: Benign findings Narrative 11/13/2019 3:59 PM WASTEWATER ENGINEER EXAM: BILATERAL DIAGNOSTIC DIGITAL MAMMOGRAM WITH 3D TOMOSYNTHESIS AND CAD DATE: 11/12/2019 9:26 AM HISTORY: Personal history of breast cancer with prior left conservation therapy. DICTATION LOCATION: ??[facility] [place] COMPARISON: 05/14/2019 and older. TECHNIQUE: Mediolateral oblique, [...] either breast. Computer aided detection was utilized. Procedure Note Monica Carrasco MD - 11/13/2019 EXAM: BILATERAL DIAGNOSTIC DIGITAL MAMMOGRAM WITH 3D TOMOSYNTHESIS AND CAD DATE: 11/12/2019 9:26 AM HISTORY: Personal history of breast cancer with prior left conservation therapy. DICTATION LOCATION: [facility] COMPARISON: 05/14/2019 and older. TECHNIQUE: Mediolateral oblique, [...] either breast. Computer aided detection was utilized. IMPRESSION: No suspicious findings to suggest malignancy in either breast. Annual mammography is recommended. OVERALL FINAL ASSESSMENT: BI-RADS CATEGORY 2: Benign findings Ita Vazquez MD MAMMO ORDERABLES documented in this encounter Visit Diagnoses Diagnosis Malignant neoplasm of upper-inner quadrant of left breast in female, estrogen receptor positive documented in this encounter Care Teams Gym Teacher Relationship Specialty Start Date End Date Francisco Long MD PCP - General Internal Medicine 06/27/18 documented as of this encounter
--- OUTSIDE RECORDS SUMMARY | 2024-11-16 13:26 | XMS_ITS | Encounter Summary ---
Author Organization [facility] Address [address] [place] [address] Care Team Providers Care Pin Chaser Name Role Phone Francisco Long MD Primary Care Provider Unavailabl e Reason for Visit * Reason Onset Date Comments Results 05/15/2019 Encounter Details Date Type Department Care Team (Late st Contact Info) Description 05/15/[address] [facility] [place] [facility] ONCOLOGY AND HEMATOLOGY-[place]IN LONG [address] [facility] [address] [place] [address] Caron Mohan MD [address] [place] [address] Results Social History Tobacco Use Types Packs/Day [...] Telephone Encounter - Pricilla Olsen RN - 05/15/2019 12:26 PM CDT ----- Message from Caron Mohan MD sent at 05/15/2019 8:52 AM CDT ----- 05/14/19--Level is improved, almost normal. (has forgot a few weekly doses) After completing the high dose replacement for 12 weeks ( I think she is not quite finished) then take 2000 IU/day--verbalized understanding to start AFTER weekly dose completed documented in this encounter Plan of Treatment Upcoming Encounters Date Type Department Care Team (Late st Contact Info) Description 03/19/2025 10:45 AM CDT Appointment [facility] Justin [address] [place] [address] Caron Mohan MD [address] [place], [place] [phone] 03/19/2025 11:30 AM CDT Office Visit [facility] Oncology and Hematology Justin Long [address] [place] [address] Caron Mohan MD [address] [place], [place] [phone] [place] [address] [place] [address] documented as of this encounter Visit Diagnoses Diagnosis Vitamin D deficiency- Primary Unspecified vitamin D deficiency documented in this encounter Care Teams Pin Chaser Relationship Specialty Start Date End Date Francisco Long MD PCP - General Internal Medicine 06/27/18 documented as of this encounter
--- OUTSIDE RECORDS SUMMARY | 2024-11-16 13:26 | XMS_ITS | Encounter Summary ---
Author Organization [facility] Address [address] Worrell: [place] [address] Care Team Providers Care Assessment Coordinator Name Role Phone Francisco Long MD Primary Care Provider Unavailabl e Encounter Details Date Type Department Care Team (Latest Contact Info) Description 06/08/2021 Travel Social History Tobacco Use Types Packs/Day [...] Info) Description 03/19/2025 10:45 AM CDT Appointment [facility] Justin [address] [place] [address] Caron Mohan MD [address] [place] [phone] 03/19/2025 11:30 AM CDT Office Visit [facility] Oncology and Hematology Justin [address] [place] [address] Caron Mohan MD [address] [place] [address] [place] [address] [place] [address] documented as of this encounter Visit Diagnoses Not on filedocumented in this encounter Care Teams Assessment Coordinator Relationship Specialty Start Date End Date Francisco Long MD PCP - General Internal Medicine 06/27/18 documented as of this encounter
--- OUTSIDE RECORDS SUMMARY | 2024-11-16 13:26 | XMS_ITS | Encounter Summary ---
Author Organization [facility] Address [address] [place] [address] Care Team Providers Care Rolling Chair Pusher Name Role Phone Francisco Long MD Primary Care Provider Unavailabl e Reason for Referral * Radiology Services (Routine) - Closed Specialty Diagnoses / Procedures Referred By Halima garcia Referred To Contact Diagnoses Malignant neoplasm of upper-inner quadrant of left breast in female, estrogen receptor positive Procedures MAMMO BREAST US LEFT LTD Caron Mohan MD [address] [place] [address] Referral ID Status Reason Start Date Expiration Date Visits Re quested Visits Authorized [id number] Closed 02/06/2022 03/09/2023 1 1 Reason for Visit * Radiology Services (Routine) - Closed Specialty Diagnoses / Procedures Referred By Halima garcia Referred To Contact Diagnoses Malignant neoplasm of upper-inner quadrant of left breast in female, estrogen receptor positive Procedures MAMMO BREAST US LEFT LTD Caron Mohan MD [address] [place] [address] Referral ID Status Reason Start Date Expiration Date Visits Re quested Visits Authorized [id number] Closed 02/06/2022 03/09/2023 1 1 Encounter Details Date Type Department Care Team (Latest Contact Info) Description 02/06/2022 1:58 PM CDT - 02/06/2022 11:59 PM CDT Hospital Encounter [facility] [place] [address] [place] [address] Caron Mohan MD [address] [place] [address] Discharge Disposition: Home or Self Care Social [...] every 7 days. 6 tabs on Sunday' letrozole (FEMARA) 2.5 mg tabletIndications:Josiane gnant neoplasm [...] Info) Description 03/19/2025 10:45 AM CDT Appointment [facility] [address] [place] [address] Caron Mohan MD [address] [place] [address] 03/19/2025 11:30 AM CDT Office Visit [facility] Oncology and Hematology [place] Long [address] [place] [address] Caron Mohan MD [address] [facility] [address] [place], [place] [phone] [place] [address] [facility] [address] [place] [address] documented as of this encounter Procedures Procedure Name Priority Date/Time Associated Diagnosis Comments MAMMO BREAST US LEFT LTD Routine 02/06/2022 2:06 PM CDT Malignant neoplasm of upper-inner quadrant of left breast in female, estrogen receptor positive documented in this encounter Results * (ABNORMAL) MAMMO BREAST US LEFT LTD (02/06/2022 2:06 PM CDT) Anatomical Region Laterality Modality Left Ultrasound 02/06/2022 2:06 PM CDT Impressions 02/06/2022 3:23 PM CDT [...] ULTRASOUND DATE: 02/06/2022 1:44 PM DICTATION LOCATION: [facility] INDICATION: Yearly exam, history of left-sided breast [...] positive documented in this encounter Care Teams Rolling Chair Pusher Relationship Specialty Start Date End Date Francisco Long MD PCP - General Internal Medicine 06/27/18 documented as of this encounter
--- OUTSIDE RECORDS SUMMARY | 2024-11-16 13:26 | XMS_ITS | Encounter Summary ---
Author Organization [facility] Address [address] Larsenn: [place] [address] Care Team Providers Care Escrow Clerk Name Role Phone Francisco Long MD Primary Care Provider Unavailabl e Encounter Details Date Type Department Care Team (Latest Contact Info) Description 11/16/2020 Travel Social History Tobacco Use Types Packs/Day [...] have Coronavirus / COVID-19? No / Unsure 11/16/2020 10:37 AM TRACKWALKER documented as of this encounter Plan of Treatment Upcoming Encounters Date Type Department Care Team (Late st Contact Info) Description 03/19/2025 10:45 AM CDT Appointment [facility] [address] [place] [phone] Caron Mohan MD [address] [place] [address] 03/19/2025 11:30 AM CDT Office Visit [facility] Oncology and Hematology [address] [place] [phone] Caron Mohan MD [address] [place] [address] [place] [address] [place] [address] documented as of this encounter Visit Diagnoses Not on filedocumented in this encounter Care Teams Escrow Clerk Relationship Specialty Start Date End Date Francisco Long MD PCP - General Internal Medicine 06/27/18 documented as of this encounter
--- OUTSIDE RECORDS SUMMARY | 2024-11-16 13:26 | XMS_ITS | Encounter Summary ---
Author Organization [facility] Address [address] [place] [address] Care Team Providers Care Product Assembler Name Role Phone Francisco Long MD Primary Care Provider Unavailabl e Reason for Visit * Reason Onset Date Comments Follow Up 01/28/2020 Encounter Details Date Type Department Care Team (Late st Contact Info) Description 01/28/2020 Telephone [facility] ONCOLOGY AND HEMATOLOGY-[place] [address] [facility] [address] [place] [address] Caron Mohan MD [address] [place] [address] Follow Up Social History Tobacco Use Types Packs/Day Years [...] encounter Miscellaneous Notes * Telephone Encounter - Caron Mohan MD - 01/28/2020 4:01 PM CST I called her to review recent medical events Pulmonary embolism Anemia, iron def, scoped, started PPI Getting IV iron Feels better F/u with PCP - he can call me with questions - No sign of recurrent cancer OK to stay on letrozole See me as scheduled in April GER TRADING documented in this encounter Plan of Treatment Upcoming Encounters Date Type Department Care Team (Late st Contact Info) Description 03/19/2025 10:45 AM CDT Appointment [facility] [address] [place] [address] Caron Mohan MD [address] [place] [address] 03/19/2025 11:30 AM CDT Office Visit [facility] Oncology and Hematology [place] Long [address] [place] [address] Caron Mohan MD [address] [place] [address] [place] [address] [facility] [address] [place] [address] documented as of this encounter Visit Diagnoses Not on filedocumented in this encounter Care Teams Product Assembler Relationship Specialty Start Date End Date Francisco Long MD PCP - General Internal Medicine 06/27/18 documented as of this encounter
--- OUTSIDE RECORDS SUMMARY | 2024-11-16 13:26 | XMS_ITS | Encounter Summary ---
Author Organization [facility] Address [address] [place] [address] Care Team Providers Care Hand Scudder Name Role Phone Francisco Long MD Primary Care Provider Unavailabl e Reason for Visit * Reason Comments Medication Refill Encounter Details Date Type Department Care Team (Late st Contact Info) Description 06/21/2021 Refill [facility] ONCOLOGY AND HEMATOLOGY-[place] [address] [facility] [address] [place] [address] Caron Mohan MD [address] [place], [place] [phone] Malignant neoplasm of upper-inner quadrant of left breast in female, estrogen receptor positive (Primary Dx); Menopause; ER+ (estrogen receptor positive status) Social [...] Telephone Encounter - Pricilla Olsen RN - 06/21/2021 10:02 AM CDT AI started January 2019.--refilled Next BMD 06/28/2021 @ [facility]--orders faxed documented in this encounter Plan of Treatment Upcoming Encounters Date Type Department Care Team (Late st Contact Info) Description 03/19/2025 10:45 AM CDT Appointment [facility] [address] [place] [phone] Caron Mohan MD [address] [place], [place] [phone] 03/19/2025 11:30 AM CDT Office Visit [facility] Oncology and Hematology [address] [place] [address] Caron Mohan MD [address] [place], [place] [phone] [place] [address] [facility] [address] [place] [address] documented as of this encounter Visit Diagnoses Diagnosis Malignant neoplasm of upper-inner quadrant of left breast in female, estrogen receptor positive- Primary Menopause Symptomatic menopausal or female climacteric states ER+ (estrogen receptor positive status) Estrogen receptor positive status [ER+] documented in this encounter Care Teams Hand Scudder Relationship Specialty Start Date End Date Francisco Long MD PCP - General Internal Medicine 06/27/18 documented as of this encounter
--- OUTSIDE RECORDS SUMMARY | 2024-11-16 13:26 | XMS_ITS | Encounter Summary ---
Author Organization [facility] Address [address] [place] [address] Care Team Providers Care Loss Prevention Lead Name Role Phone Francisco Long MD Primary Care Provider Unavailabl e Reason for Referral * Radiology Services (Routine) - Closed Specialty Diagnoses / Procedures Referred By Halima garcia Referred To Contact Diagnoses Malignant neoplasm of upper-inner quadrant of left breast in female, estrogen receptor positive Asymptomatic menopausal state Procedures MAMMO POST US/STEREO GUIDED PROCEDURE Caron Lopez MD [address] [place] [address] Referral ID Status Reason Start Date Expiration Date Visits Re quested Visits Authorized [id number] Closed 02/06/2022 05/07/2022 1 1 Reason for Visit * Radiology Services (Routine) - Closed Specialty Diagnoses / Procedures Referred By Halima garcia Referred To Contact Diagnoses Malignant neoplasm of upper-inner quadrant of left breast in female, estrogen receptor positive Asymptomatic menopausal state Procedures MAMMO POST US/STEREO GUIDED PROCEDURE Caron Lopez MD [address] [place] [address] Referral ID Status Reason Start Date Expiration Date Visits Re quested Visits Authorized [id number] Closed 02/06/2022 05/07/2022 1 1 Encounter Details Date Type Department Care Team (Latest Contact Info) Description 02/14/2022 10:05 AM CDT - 02/14/2022 11:59 PM CDT Hospital Encounter [facility] [place] [address] [place] [address] Caron Mohan MD [address] [place] [address] Discharge Disposition: Home or Self [...] AM CDT documented as of this encounter Medications [...] Info) Description 03/19/2025 10:45 AM CDT Appointment [facility] [place] [address] [place] [address] Caron Mohan MD [address] [place], [place] [id number] 03/19/2025 11:30 AM CDT Office Visit [facility] Oncology and Hematology [place] [address] [address] [facility] [address] [place] [address] Caron Mohan MD [address] [place], [place] [phone] [place] [address] [facility] [address] [facility] [address] [place] [address] documented as of this encounter Procedures Procedure Name Priority Date/Time Associated Diagnosis Comments MAMMO POST US/STEREO GUIDED PROCEDURE LT Routine 02/14/2022 12:35 PM CDT Malignant neoplasm of upper-inner quadrant of left breast in female, estrogen receptor positive Asymptomatic menopausal state documented in this encounter Results * MAMMO POST US/STEREO GUIDED PROCEDURE LT (02/14/2022 12:35 PM CDT) Anatomical Region Laterality Modality Breast Left Mammography 02/14/2022 10:0 5 AM CDT Addenda Addendum by Kenna Fernandes, on 02/19/2022 1:56 PM CDT PATHOLOGY ADDENDUM: The patient's ultrasound-guided core needle biopsy of the left breast performed on 02/14/2022 yielded the following pathology results: FINAL DIAGNOSIS Breast, left, mass, ultrasound-guided core needle biopsy: - Breast tissue with dense mixed chronic inflammation with prominent foamy histiocytes, hemosiderin laden macrophages, multinucleated giant cells, stromal fibrosis, and fat necrosis, consistent with prior surgical site changes. - Mild sclerosing adenosis. The above pathology result is benign and concordant with imaging findings. As such, no additional imaging follow-up is specifically required. The patient should return to annual routine mammography, next due January 2073. The above pathology results and recommendation were discussed with the patient by the office of Dr. Mohan in 02/16/2022. She has a clinical follow-up scheduled in July 2022. Impressions 02/14/2022 4:18 PM CDT IMPRESSION: Technically successful 10-gauge vacuum-assisted ultrasound-guided core biopsy of the complex cystic mass at left 11:00 with tissue marker placement. Pathology pending. ?? DICTATION LOCATION: ??[facility] E[facility] 02/14/2022 4:18 PM CDT EXAM: ULTRASOUND-GUIDED CORE BIOPSY OF THE LEFT BREAST, TISSUE MARKER CLIP PLACEMENT, UNILATERAL DIGITAL MAMMOGRAM DATE: 02/14/2022 HISTORY: 76-year-old female presents for ultrasound-guided core needle biopsy of a 2.0 cm complex cystic mass in the left breast 11:00, 3 cm from the nipple. COMPARISON: Prior mammograms 11/12/2019 through 02/06/2022 and left breast ultrasound 02/06/2022. PROCEDURE AND FINDINGS: ?? The risks and potential benefits of the procedure were discussed with the patient and written informed consent was obtained. Preliminary ultrasound redemonstrates the 2 cm complex cystic mass in the left breast at 11:00, 3 cm from the nipple. After sterile preparation of the skin, lidocaine was utilized for local anesthesia. A small skin michel was made. Under ultrasound guidance, and a lateral approach, a 10 gauge vacuum-assisted core biopsy needle was advanced through the mass. A total of nine tissue cores were obtained. Under ultrasound guidance, a tissue marker clip was then placed at the biopsy site. The needle was withdrawn and compression applied to achieve hemostasis. A sterile bandage and an ice pack were applied. ?? Postprocedure two-view left unilateral digital mammogram demonstrates the tissue marker at the appropriate position. ?? The patient tolerated the procedure well without immediate complication. The patient was given verbal as well as written postprocedural instructions prior to the release from the department. The tissue cores were submitted to surgical pathology in formalin for histologic analysis. Caron Mohan MD MAMMO ORDERABLES documented in this encounter Visit Diagnoses Diagnosis Malignant neoplasm of upper-inner quadrant of left breast in female, estrogen receptor positive Asymptomatic menopausal state Asymptomatic postmenopausal status (age-related) (natural) documented in this encounter Care Teams Loss Prevention Lead Relationship Specialty Start Date End Date Francisco Long MD PCP - General Internal Medicine 06/27/18 documented as of this encounter
--- OUTSIDE RECORDS SUMMARY | 2024-11-16 13:26 | XMS_ITS | Encounter Summary ---
Author Organization [facility] Address [address] [place] [address] Care Team Providers Care Stamping Die Maker Name Role Phone Francisco Long MD [...] BILATERAL Caron Mohan MD [address] [place] [address] Referral ID Status Reason Start Date Expiration Date Visits Re quested Visits Authorized [id number] Closed 08/09/2022 09/09/2023 1 1 Reason for Visit * Radiology Services (Routine) - Closed Specialty Diagnoses / Procedures Referred By Halima garcia Referred To Contact Diagnoses Malignant neoplasm of upper-inner quadrant of left breast in female, estrogen receptor positive Procedures MAMMO DIAG BILAT 3D CATHY W OR WO CAD CHG DIAGNOSTIC MAMMOGRAPHY COMPUTER-AIDED DETCJ BI CHG DIGITAL BREAST TOMOSYNTHESIS BILATERAL Caron Mohan MD [address] [facility] [address] [place] [address] Referral ID Status Reason Start Date Expiration Date Visits Re quested Visits Authorized [id number] Closed 08/09/2022 09/09/2023 1 1 Encounter Details Date Type Department Care Team (Latest Contact Info) Description 02/12/2023 10:46 AM CDT - 02/12/2023 11:59 PM CDT Hospital Encounter [facility] [place] [address] [place] [address] Caron Mohan MD [address] [place], [place] [phone] Discharge Disposition: Home or Self Care Social [...] Delayed Release (E.C.) Take 40 mg by mouth daily. 03/02/2022 03/02/2023 letrozole (FEMARA) 2.5 mg tabletIndications:Josiane gnant neoplasm of upper-inner quadrant of left breast in female, estrogen receptor positive,Menopause,ER+ (estrogen receptor positive status) TAKE 1 TABLET(2.5 MG) BY MOUTH DAILY 90 Tablet 3 10/02/2022 02/25/2024 documented as of this encounter Plan of Treatment Upcoming Encounters Date Type Department Care Team (Late st Contact Info) Description 03/19/2025 10:45 AM CDT Appointment [facility] [place] [address] [place] [address] Caron Mohan MD [address] [place], [place] [phone] 03/19/2025 11:30 AM CDT Office Visit [facility] Oncology and Hematology [place] [address] [place] [address] Caron Mohan MD [address] [place] [address] [place] [address] [facility] [address] [place] [address] documented as of this encounter Procedures Procedure Name Priority Date/Time Associated Diagnosis Comments MAMMO DIAG BILAT 3D CATHY W OR WO CAD Routine 02/12/2023 11:09 AM CDT Malignant neoplasm of upper-inner quadrant [...] mammogram in one year. DICTATION LOCATION: ??Cindy Long Narrative 02/12/2023 1:27 PM CDT EXAM: BILATERAL DIAGNOSTIC [...] diagnostic mammogram in one year. DICTATION LOCATION: [facility] Caron Mohan MD MAMMO ORDERABLES documented in this encounter Visit Diagnoses Diagnosis Malignant neoplasm of upper-inner quadrant of left breast in female, estrogen receptor positive documented in this encounter Care Teams Stamping Die Maker Relationship Specialty Start Date End Date Francisco Long MD PCP - General Internal Medicine 06/27/18 documented as of this encounter
--- OUTSIDE RECORDS SUMMARY | 2024-11-16 13:26 | XMS_ITS | Encounter Summary ---
Author Organization [facility] Address [address] Larsenn: [place] [address] Care Team Providers Care Medicine Assistant Name Role Phone Francisco Long MD Primary Care Provider Unavailabl e Encounter Details Date Type Department Care Team (Latest Contact Info) Description 11/01/2020 Travel Social History Tobacco Use Types Packs/Day [...] have Coronavirus / COVID-19? 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 [place] [address] 03/19/2025 11:30 AM CDT Office Visit [facility] Oncology and Hematology [place] [address] [place] [address] Caron Mohan MD [address] [place] [address] [place] [address] [place] [address] documented as of this encounter Visit Diagnoses Not on filedocumented in this encounter Care Teams Medicine Assistant Relationship Specialty Start Date End Date Francisco Long MD PCP - General Internal Medicine 06/27/18 documented as of this encounter
--- OUTSIDE RECORDS SUMMARY | 2024-11-16 13:26 | XMS_ITS | Encounter Summary ---
Author Organization [facility] Address [address] [place] [address] Care Team Providers Care Glycerine Plant Operator Name Role Phone Francisco Long MD Primary Care Provider Unavailabl e Encounter Details Date Type Department Care Team (Latest Contact Info) Description 05/14/2019 11:18 AM CDT - 05/14/2019 11:59 PM CDT Hospital Encounter [facility] Out[facility] Laboratory Services [address] [place] [address] Caron Mohan MD [address] [facility] [address] [id number] Discharge Disposition: Home or Self Care Social [...] Sig Dispensed Refills Start Date End Date calcium carbonate + vitamin D (CALTRATE+D) 600 mg(1,500mg) -400 unit Tablet Take 1 Tablet by mouth daily. 0 02/12/2019 methotrexate (RHEUMATREX) 2.5 mg Tablet Take 2.5 mg by mouth every 7 days. 6 tabs on letrozole (FEMARA) 2.5 mg Tablet Take 1 Tablet (2.5 mg) by mouth daily. 90 Tablet 3 02/10/2019 02/16/2020 losartan-hydroCHLOROthia zide (HYZAAR) 100-12.5 mg tablet Take 1 Tablet by mouth daily. 06/08/2021 documented as of this encounter Plan of Treatment Upcoming Encounters Date Type Department Care Team (Late st Contact Info) Description 03/19/2025 10:45 AM CDT Appointment [facility] [place] [address] [place] [address] Caron Mohan MD [address] [address] 03/19/2025 11:30 AM CDT Office Visit [facility] Oncology and Hematology [place] [address] [place] [address] Caron Mohan MD [address] [facility] [address] [address] [place] [address] [facility] [address] [place] [address] documented as of this encounter Procedures Procedure Name Priority Date/Time Associated Diagnosis Comments VITAMIN D 25 HYDROXY Routine 05/14/2019 11:22 AM CDT Vitamin D deficiency Aromatase inhibitor use Malignant neoplasm of upper-inner quadrant of left breast in female, estrogen receptor positive documented in this encounter Results * (ABNORMAL) VITAMIN D 25 HYDROXY (05/14/2019 11:22 AM CDT) VITAMIN D TOTAL (25OH) 29(L) 30 - 100 ng/mL 05/15/2019 2:20 AM CDT [facility] Blood Venipuncture / Unknown 05/14/2019 11:22 AM CDT 05/14/2019 11:22 AM CDT Narrative [facility] - 05/15/2019 2:20 AM CDT Interpretive Data Chart: Deficient: 0 - 20 ng/mL Insufficient: 21 - 29 ng/mL Sufficient: 30 - 100 ng/mL Increased Risk of Hypercalciuria: >100 ng/mL Toxic: >150 ng/mL Caron Mohan MD CHEMISTRY ORDERABLES [facility] CLAL# [id number] [address] [place] [address] documented in this encounter Visit Diagnoses Diagnosis Vitamin D deficiency Unspecified vitamin D deficiency Aromatase inhibitor use Use of aromatase inhibitors Malignant neoplasm of upper-inner quadrant of left breast in female, estrogen receptor positive documented in this encounter Care Teams Glycerine Plant Operator Relationship Specialty Start Date End Date Francisco Long MD PCP - General Internal Medicine 06/27/18 documented as of this encounter
--- OUTSIDE RECORDS SUMMARY | 2024-11-16 13:26 | XMS_ITS | Encounter Summary ---
Author Organization [facility] Address [address] [place] [address] Care Team Providers Care Production Machinist Name Role Phone Francisco Long MD Primary Care Provider Unavailabl e Encounter Details Date Type Department Care Team (Late st Contact Info) Description 02/06/2022 Chart Note [facility] [address] [place] [address] Enma Verdugo RN Social History [...] PM CDT documented as of this encounter Progress Notes * Enma Verdugo RN - 02/06/2022 3:38 PM CDT Patient scheduled for a left breast US core biopsy. Procedural education provided. Discussed potential risk factors, including bleeding and infection. Request that patient avoid ASA/Ibuprofen products for 5 days prior to procedure. Patient's health history, medications and allergies reviewed. The time, date and location of procedure provided in writing. Patient is encouraged to call RN Navigationoffice with any additional questions or concerns; contact information provided. Enma Verdugo RN BSN CBCN Breast Health Nurse Navigator-[facility] documented in this encounter Plan of Treatment Upcoming Encounters Date Type Department Care Team (Late st Contact Info) Description 03/19/2025 10:45 AM CDT Appointment [facility] [place] [address] [place] [phone] Caron Mohan MD [address] [place], [place] [phone] 03/19/2025 11:30 AM CDT Office Visit [facility] Oncology and Hematology Justin Long [address] [place] [address] Caron Mohan MD [address] [place], [place] [phone] [place] [address] [place] [address] documented as of this encounter Visit Diagnoses Not on filedocumented in this encounter Care Teams Production Machinist Relationship Specialty Start Date End Date Francisco Long MD PCP - General Internal Medicine 06/27/18 documented as of this encounter
--- OUTSIDE RECORDS SUMMARY | 2024-11-16 13:26 | XMS_ITS | Encounter Summary ---
Author Organization [facility] Address [address] [place] [address] Care Team Providers Care Dry Roller Name Role Phone Francisco Long MD Primary [...] Mohan MD [address] [place] [address] Referral ID Status Reason Start Date Expiration Date Visits Re quested Visits Authorized [id number] Closed 06/08/2021 07/09/2022 1 1 * Radiology Services (Routine) - Closed Specialty Diagnoses / Procedures Referred By Halima garcia Referred To Contact Diagnoses Malignant neoplasm of upper-inner quadrant of left breast in female, estrogen receptor positive Asymptomatic menopausal state Procedures XR DEXA BONE DENSITY AXIAL 1 OR MORE SITES Caron Mohan MD [address] [facility] [place] [address] [facility] -[address] [address] Referral ID Status Reason Start Date Expiration Date Visits Re quested Visits Authorized [id number] Closed 06/08/2021 07/09/2022 1 1 Reason for Visit * Reason Comments Follow Up 6 Months Encounter Details Date Type Department Care Team (Late st Contact Info) Description 06/08/2021 10:30 AM CDT Office Visit [facility] ONCOLOGY AND HEMATOLOGY-JUSTINELIZABETH LONG [address] [place] [address] Caron Mohan MD [address] [place] [address] Malignant neoplasm of upper-inner quadrant of left breast in female, estrogen receptor positive (Primary Dx); History of endometrial cancer; Rheumatoid arthritis with rheumatoid factor of multiple sites without organ or systems involvement; Personal history of DVT (deep vein thrombosis); Asymptomatic menopausal state Social History Tobacco Use [...] Reading Time Taken Comments Blood Pressure 128/80 06/08/2021 10:25 AM CDT Pulse 81 06/08/2021 10:25 AM CDT Temperature 36.4 ??C (97.6 ??F) 06/08/2021 10:25 AM C DT Respiratory Rate - - Oxygen Saturation 97% 06/08/2021 10:25 AM CDT Inhaled Oxygen Concentration - - Weight 85.3 kg (188 lb) 06/08/2021 10:25 AM CDT Height 170.2 cm (5' 7 ) 06/08/2021 10:25 AM CDT Body Mass Index 29.44 06/08/2021 10:25 AM CDT documented in this encounter Progress Notes * Caron Mohan MD - 06/08/2021 10:54 AM CDT [facility] Oncology and Hematology Date of Service: 06/08/2021 Patient: Jolene Cedillo : 1945 HPI Ms. [...] clot after knee surgery. DEXA 2017 at [facility] but unable to access results. INTERVAL HX Tolerating AI well. Rare HF. On MTX for RA Liudmila Nov 2020 neg - no breast concerns. Pulmonary embolism Nov 2019. Doppler neg for DVT. Anticoagulation led to anemia (Hgb 7) required RBC tx due to GI bleed. Also got IV iron Scoped from above and below, only found gastritis, started PPI Energy level is good now, no more bleeding. H/o postop blood clot after TKR in the past - ?hypercoagulable state Stopped Eliquis due to GI bleeding. 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 Current Outpatient Medications Medication Sig Dispense Refill ??? pantoprazole (PROTONIX) 40 mg Tablet, Delayed Release (E.C.) Take 40 mg by mouth daily. ??? famotidine (PEPCID) 40 mg tablet Take 40 mg by mouth daily. ??? losartan (COZAAR) 100 mg tablet TAKE 1 TABLET BY MOUTH EVERY DAY ??? rosuvastatin (CRESTOR) 5 mg tablet Take 5 mg by mouth daily. ??? OTHER PM Lubricant Eye Ointment ??? carvediloL (COREG) 6.25 mg tablet Take 6.25 mg by mouth 2 times daily with meals. ??? letrozole (FEMARA) 2.5 mg Tablet TAKE 1 TABLET(2.5 MG) BY MOUTH DAILY 90 Tablet 4 ??? Cholecalciferol, Vitamin D3, (VITAMIN D3) 2,000 unit Capsule Take 1 Capsule by mouth daily. ??? methotrexate (RHEUMATREX) 2.5 mg Tablet Take 2.5 mg by mouth every 7 days 6 tabs on . ??? calcium carbonate + vitamin D (CALTRATE+D) 600 mg(1,500mg) -400 unit Tablet Take 1 Tablet by mouth daily. 0 No current facility-administered medications for this visit. ROS: Negative except as in HPI PHYSICAL EXAM BP 128/80 (BP Location: Right arm, Patient Position (BP): Sitting, BP Cuff Size: Adult) Pulse 81 Temp 97.6 ??F (36.4 ??C) (Oral) Ht 5' 7 (1.702 m) Wt 85.3 kg (188 lb) SpO2 97% BMI 29.44 kg/m?? ECOG PS = 0 [...] lumpectomy and SLN and RT, [facility] FINAL DIAGNOSIS 09/23/18 Breast, left, core biopsy: - Invasive ductal carcinoma, with the following features: 1. Size: 12 mm. 2. Donnie score: 6/9. 3. Lymphvascular invasion: Not identified. 4. Stage: pT1c. - Biomarker results: ER 8/8 (positive), PA 8/8 (positive), Her2 IHC 1+ (negative). - Low to intermediate grade ductal carcinoma in situ, minute focus, with associated calcifications. FINAL DIAGNOSIS A. 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 ?? B. Breast, left, lumpectomy: - Invasive ductal carcinoma, with the following features: 1. Size: 1.3 cm. 2. Donnie score: 6/9. 3. Margins: Invasive carcinoma 3 mm from the posterior margin. 4. Lymphvascular invasion: Not definitively identified. 5. Stage: pT1c snN1mi. 6. Biomarkers: HER2 1+ (ER and PA positive performed previously on [id number]). - Radial scar. - Intraductal papilloma (0.1 [...] Benign breast tissue, negative for carcinoma. [facility] neg Nov 2020 ASSESSMENT and PLAN Ms. Cedillo is a 75 y.o. woman with [id number] breast cancer, ER+/PA+/HER2-, NS 6. She has had lumpectomy. Dr. John Ag in [place] has completed her radiation. OncotypeDX RS=7, 11% recurrence, no benefit to chemo. Since her tumor is strongly ER/PA positive, I have recommended hormonal Rx with oral aromatase inhibitor. She is tolerating this well. Started January 2019. Bone density checked February 2019, normal - needs recheck - will do this in [place]. Vitamin D, exercise reviewed. RTC 6 months with [facility] OTHER ISSUES: H/o endometrial cancer - very early stage, f/u with Dr. Surinder BERNARDO - continue MTX Discussed genetic testing due to breast and endometrial cancer, but she does not have children. Pulmonary embolism - off Eliquis due to GI bleed.. TOBACCO COUNSELING She is not a tobacco [...] Info) Description 03/19/2025 10:45 AM CDT Appointment [facility] [address] [place] [phone] Caron Mohan MD [address] [place], [place] [id number] 03/19/2025 11:30 AM CDT Office Visit [facility] Oncology and Hematology Justin Long [address] [place] [address] Caron Mohan MD [address] [place] [address] [place] [address] [facility] [address] [place] [address] Scheduled Orders Name Type Priority Associated Diagnoses Orde r Schedule XR DEXA BONE DENSITY AXIAL 1 OR MORE SITES Imaging Routine Malignant neoplasm of upper-inner quadrant of left breast in female, estrogen receptor positive Asymptomatic menopausal state 1 Occurrences starting 06/08/2021 until 06/09/2022 documented as of this encounter Results * (ABNORMAL) MAMMO DIAG [...] Personal history of venous thrombosis and embolism Asymptomatic menopausal state Asymptomatic postmenopausal status (age-related) (natural) Malignant neoplasm of upper-inner quadrant of left breast in female, estrogen receptor positive documented in this encounter Care Teams Dry Roller Relationship Specialty Start Date End Date Francisco Long MD PCP - General Internal Medicine 06/27/18 documented as of this encounter
--- OUTSIDE RECORDS SUMMARY | 2024-11-16 13:26 | XMS_ITS | Encounter Summary ---
Author Organization [facility] Address [address] [place] [address] Care Team Providers Care Hired Hand Name Role Phone Francisco Long MD Primary Care Provider Unavailabl e Reason for Visit * Reason Comments Follow Up 6 months with mammo Encounter Details Date Type Department Care Team (Late st Contact Info) Description 02/12/2023 10:45 AM CDT Office Visit [facility] ONCOLOGY AND HEMATOLOGY-JUSTIN LAQUITA [address] [place] [address] Caron Mohan MD [address] [place], [place] [id number] Malignant neoplasm of upper-inner quadrant of left breast in female, estrogen receptor positive (Primary Dx); Rheumatoid arthritis with rheumatoid factor of multiple sites without organ or systems involvement; Personal history of DVT (deep vein thrombosis) [...] Sign Reading Time Taken Comments Blood Pressure 136/74 02/12/2023 11:41 AM CDT Pulse 107 02/12/2023 11:41 AM CDT Temperature 36.2 ??C (97.2 ??F) 02/12/2023 11:41 AM C DT Respiratory Rate - - Oxygen Saturation 91% 02/12/2023 11:41 AM CDT Inhaled Oxygen Concentration - - Weight 83 kg (183 lb) 02/12/2023 11:41 AM CDT Height 170.2 cm (5' 7 ) 02/12/2023 11:41 AM CDT Body Mass Index 28.66 02/12/2023 11:41 AM CDT documented in this encounter Progress Notes * Caron Mohan MD - 02/12/2023 12:02 PM CDT [facility] Oncology and Hematology Date of Service: 02/12/2023 Patient: Jolene Cedillo : 1945 HPI Ms. [...] clot after knee surgery. DEXA 2017 at [facility] but unable to access results. INTERVAL HX Tolerating AI well. Rare HF. On MTX for RA Liudmila today is neg - no breast concerns Recently took prednisone for bronchitis. Current Outpatient Medications Medication Sig Dispense Refill pantoprazole (PROTONIX) 40 mg Tablet, Delayed Release (E.C.) Take 40 mg by mouth daily. letrozole (FEMARA) 2.5 mg tablet TAKE [...] except as in HPI PHYSICAL EXAM BP 136/74 (BP Location: Right arm, Patient Position (BP): Sitting, BP Cuff Size: Adult) Pulse (!)107 Temp 97.2 ??F (36.2 ??C) (Oral) Ht 5' 7 (1.702 m) Wt 83 kg (183 lb) SpO2 91% BMI 28.66 kg/m?? ECOG PS = 0 General appearance: [...] following features: 1. Size: 12 mm. 2. Clarks score: 6/9. 3. Lymphvascular invasion: Not identified. 4. Stage: pT1c. - Biomarker results: ER 8/8 (positive), CO 8/8 (positive), Her2 IHC 1+ (negative). - Low to intermediate grade ductal carcinoma in situ, minute focus, with associated calcifications. FINAL DIAGNOSIS A. 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 B. Breast, left, lumpectomy: - Invasive ductal carcinoma, with the following features: 1. Size: 1.3 cm. 2. Donnie score: 6/9. 3. Margins: Invasive carcinoma 3 mm from the posterior margin. 4. Lymphvascular invasion: Not definitively identified. 5. Stage: pT1c snN1mi. 6. Biomarkers: HER2 1+ (ER and CO positive performed previously on [id number]). - Radial scar. - Intraductal papilloma (0.1 [...] Cedillo is a 77 y.o. woman with [id number] breast cancer, ER+/CO+/HER2-, NS 6. She has had lumpectomy. Dr. John Ag in [place] has completed her radiation. OncotypeDX RS=7, 11% recurrence, no benefit to chemo. Since her tumor is strongly ER/CO positive, I have recommended hormonal Rx with oral aromatase inhibitor. She is tolerating this well. Started January 2019. Consider longer than 5 years since N1mi Bone density checked Jun 2021, normal - in [place]. Recheck this year with PCP/biofuels research scientist locally. Vitamin D, exercise reviewed. Liudmila January 2023 neg RTC 6 months TOBACCO COUNSELING She is [...] CDT Appointment [facility] Justin Long [address] [place] [address] Caron Mohan MD [address] [place], [place] [id number] 03/19/2025 11:30 AM CDT Office Visit [facility] Oncology and Hematology Justin Long [address] [place] [address] Caron Mohan MD [address] [place] [address] [place] [address] [facility] [address] [place] [address] documented as of this encounter Visit Diagnoses Diagnosis Malignant neoplasm of upper-inner quadrant of left breast in female, estrogen receptor positive- Primary Rheumatoid arthritis with rheumatoid factor of multiple sites without organ or systems involvement Personal history of DVT (deep vein thrombosis) Personal history of venous thrombosis and embolism documented in this encounter Care Teams Hired Hand Relationship Specialty Start Date End Date Francisco Long MD PCP - General Internal Medicine 06/27/18 documented as of this encounter
--- OUTSIDE RECORDS SUMMARY | 2024-11-16 13:26 | XMS_ITS | Encounter Summary ---
Author Organization [facility] Address [address] [place]: [place] [address] Care Team Providers Care Medical Educator Name Role Phone Francisco Long MD Primary Care Provider Unavailabl e Encounter Details Date Type Department Care Team (Latest Contact Info) Description 11/30/2020 Travel Social History Tobacco Use Types Packs/Day [...] have Coronavirus / COVID-19? 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 documented as of this encounter Plan of Treatment Upcoming Encounters Date Type Department Care Team (Late st Contact Info) Description 03/19/2025 10:45 AM CDT Appointment [facility] Justin [address] [place] [address] Caron Mohan MD [address] [place] [address] 03/19/2025 11:30 AM CDT Office Visit [facility] Oncology and Hematology Justin Long [address] [place] [phone] Caron Mohan MD [address] [place] [address] [place] [address] [place] [address] documented as of this encounter Visit Diagnoses Not on filedocumented in this encounter Care Teams Medical Educator Relationship Specialty Start Date End Date Francisco Long MD PCP - General Internal Medicine 06/27/18 documented as of this encounter
--- OUTSIDE RECORDS SUMMARY | 2024-11-16 13:26 | XMS_ITS | Encounter Summary ---
Author Organization [facility] Address [address] [place] [address] Care Team Providers Care Dragline Mechanic Name Role Phone Francisco Long MD Primary Care Provider Unavailabl e Reason for Visit * Reason Comments Breast Problem Biopsy results Encounter Details Date Type Department Care Team (Late Contact Info) Description 02/16/2022 Chart Note [facility] Oncology Patient Navigation [address] [place] [address] Mary Myrick, RN Breast Problem (Biopsy results) Social History Tobacco Use Types Packs/Day Years [...] AM CDT documented as of this encounter Progress Notes * Mary Myrick, TAO - 02/16/2022 11:[address] Clement review: benign concordant return to screen. Looks like chronic postsurgical seroma/chronic change near her lumpectomy site. Results and follow up care will be discussed by Dr. Caron Mohan or her office staff. documented in this encounter Plan of Treatment Upcoming Encounters Date Type Department Care Team (Late Contact Info) Description 03/19/2025 10:45 AM CDT Appointment [facility] Justin [address] [place] [phone] Caron Mohan MD [address] [place] [address] 03/19/2025 11:30 AM CDT Office Visit [facility] Oncology and Hematology Justin Long [address] [place] [address] Caron Mohan MD [address] [place] [address] [place] [address] [place] [address] documented as of this encounter Visit Diagnoses Not on filedocumented in this encounter Care Teams Dragline Mechanic Relationship Specialty Start Date End Date Francisco Long MD PCP - General Internal Medicine 06/27/18 documented as of this encounter
--- OUTSIDE RECORDS SUMMARY | 2024-11-16 13:26 | XMS_ITS | Encounter Summary ---
Author Organization [facility] Address [address] [place]enn: [place] [address] Care Team Providers Care Kindergarten Aide Name Role Phone Francisco Long MD Primary Care Provider Unavailabl e Encounter Details Date Type Department Care Team (Latest Contact Info) Description 05/10/2020 Travel Social History Tobacco Use Types Packs/Day [...] Description 03/19/2025 10:45 AM CDT Appointment [facility] Justin Long [address] [place] [address] Caron Mohan MD [address] [place] [address] 03/19/2025 11:30 AM CDT Office Visit [facility] Oncology and Hematology Justin Long [address] [place] [phone] Caron Mohan MD [address] [place] [address] [place] [address] [place] [address] documented as of this encounter Visit Diagnoses Not on filedocumented in this encounter Care Teams Kindergarten Aide Relationship Specialty Start Date End Date Francisco Long MD PCP - General Internal Medicine 06/27/18 documented as of this encounter
--- OUTSIDE RECORDS SUMMARY | 2024-11-16 13:26 | XMS_ITS | Encounter Summary ---
Author Organization [employer] [facility] Address [address] [place] [address] Care Team Providers Care Livestock Breeder Name Role Phone Francisco Long MD Primary Care Provider Unavailabl e Reason for Referral * Radiology Services (Routine) - Closed Specialty Diagnoses / Procedures Referred By Halima garcia Referred To Contact Radiology Diagnoses Malignant neoplasm of upper-inner quadrant of left breast in female, estrogen receptor positive Asymptomatic menopausal state Procedures MAMMO BREAST US BIOPSY LEFT Caron Mohan MD [address] [place] [address] [facility] [address] [address] [place] [address] Referral ID Status Reason Start Date Expiration Date Visits Re quested Visits Authorized [id number] Closed 02/06/2022 05/07/2022 1 1 Reason for Visit * Radiology Services (Routine) - Closed Specialty Diagnoses / Procedures Referred By Contlaura t Referred To Contact Radiology Diagnoses Malignant neoplasm of upper-inner quadrant of left breast in female, estrogen receptor positive Asymptomatic menopausal state Procedures MAMMO BREAST US BIOPSY LEFT Caron Mohan MD [address] [facility] [place] [address] [facility] [address] [address] [place] [address] Referral ID Status Reason Start Date Expiration Date Visits Re quested Visits Authorized [id number] Closed 02/06/2022 05/07/2022 1 1 Encounter Details Date Type Department Care Team (Latest Contact Info) Description 02/14/2022 10:05 AM CDT - 02/14/2022 11:59 PM CDT Hospital Encounter [facility] [address] [place] [phone] Caron Mohan MD [address] [place] [address] Discharge Disposition: Home or Self [...] every 7 days. 6 tabs on Sunday's letrozole (FEMARA) 2.5 mg tabletIndications:Josiane gnsharon neoplasm of upper-inner quadrant of left breast [...] CDT Appointment [facility] [address] [address] [place] [phone] Caron Mohan MD [address] [place] [address] 03/19/2025 11:30 AM CDT Office Visit [facility] Oncology and Hematology Mal[place] Long [address] [facility] [address] [place] [address] Caron Mohan MD [address] [place] [address] [place] [address] [facility] [address] [place] [address] documented as of this encounter Procedures Procedure Name Priority Date/Time Associated Diagnosis Comments PATHOLOGY Pathology 02/14/2022 12:33 PM CDT MAMMO BREAST US BIOPSY LEFT Routine 02/14/2022 11:50 AM CDT Malignant neoplasm of upper-inner quadrant of left breast in female, estrogen receptor positive Asymptomatic menopausal state documented in this encounter Results * PATHOLOGY (02/14/2022 12:33 PM CDT) CASE REPORT Surgical Pathology Report ? Case: [id number] ? Authorizing Provider: ??Kenna Fernandes, DO ??Collected: ? 02/14/2022 12:33 PM ? Ordering Location: ? [facility] ?Received: ?02/14/2022 02:59 PM ? [place] Long ? Pathologist: ? Joaquín Holcomb MD ? Specimen: ?Breast, left ? 2 10:27 AM [facility] FINAL DIAGNOSIS Breast, left, mass, ultrasound-guided core needle biopsy: - Breast tissue with dense mixed chronic inflammation with prominent foamy histiocytes, hemosiderin laden macrophages, multinucleated giant cells, stromal fibrosis, and fat necrosis, consistent with prior surgical site changes. - Mild sclerosing adenosis. 2 10:27 AM [facility] S DESCRIPTION Received in one container labeled Jolene Cedillo and left breast mass are 9 yellow-ferguson fibrofatty tissue cores ranging from 0.6 to 1.8 cm in length and each measuring 0.4 cm in diameter. All are submitted in cassettes A1 through A3. [facility] 2 10:27 AM [facility] MICROSCOPIC DESCRIPTION The slides are labeled [id number] and Jolene Cedillo. The left breast mass shows breast tissue with dense mixed chronic inflammation, with prominent foamy histiocytes and patchy multinucleated giant cells. Areas of stromal fibrosis and scar are present. Adjacent adipose tissue shows fat necrosis. Clusters of hemosiderin laden macrophages are present. The history of prior lumpectomy is noted, and the features are compatible with prior surgical changes. A small amount of remnant breast tissue is present, with focal sclerosing adenosis. Immunostains for ER and CK5/6 show patchy staining within the sclerosing adenosis, and and SMMS immunostain shows intact myoepithelial cells. An area of squamous metaplasia is present associated with an area of fibrosis and inflammation. This focus is positive for CK5/6, and predominantly negative follow ER. Membranous E-cadherin immunostaining is retained. Cytokeratin immunostains are negative and the dense inflammation, with the exception of the area of squamous metaplasia. Occasional microcalcifications are present. Atypia and malignancy are not identified. 2 10:27 AM [facility] INTRAOPERATIVE CONSULTATION The slides are labeled [id number] and Jolene Cedillo. 2 10:27 AM [facility] OPERATIVE PROCEDURE left breast ultrasound guided core needle biopsy with clip placement 2 10:27 AM [facility] CLINICAL INFORMATION Left Breast Mass, 9 10G core biopsies TISSUE OBTAINED @ 1145 IN FORMALIN @ 1150 left 11:00, 2cm complex cystic mass BIRADS 4 rule out complex seroma, complicated cyst, intracystic malignancy No Dx found. 2 10:27 AM [facility] COMMENT Special stain and/or immunohistochemical results are interpreted with controls that demonstrate appropriate staining reactions. Note on use of immunocytochemistry reagents: This test was developed and its performance characteristics determined by [facility], Department of Laboratory Medicine. It has not been cleared or approved by the U.S. Food and Drug Administration. The FDA has determined that such clearance or approval is not necessary. The test is used for clinical purposes. It should not be regarded as investigational or for research. This laboratory is certified to perform high complexity testing. Frozen section/operating room consultation, gross examination and dissection, and case sign out may have been performed in part or completely in the following laboratories: [facility], CLIA #[id number] [address] [place] [address] [facility], [place] #[id number] [address] [place] [address] [facility], CLIA #[id number] [address] [place] [address] This report was created with the [employer] voice-activated dictation system. Inherent to this system is the possibility of syntax, grammar, punctuation and other errors that could impact the interpretation of the report. If there are interpretative questions about aspects of this report, please contact the performing pathologist. 10:27 AM CDT [facility] Tissue LEFT BREAST STRUCTURE / Unknown Collection / Unknown 02/14/2022 12:33 PM CDT 02/14/2022 2:59 PM CDT Comment:Left Breast Mass, 9 10G core biopsiesTISSUE OBTAINED @ 1145 IN FORMALIN @ 1150 Kenna Fernandes DO PATHOLOGY/CYTOLO GY ORDERABLES [facility] [id number] [address] [place] [address] * MAMMO BREAST US BIOPSY LEFT (02/14/2022 11:50 AM CDT) Anatomical Region Laterality Modality Breast Left Ultrasound Tissue SPECIMEN FROM BREAST / Unknown 02/14/2022 10:05 AM CDT Addenda Addendum by Kenna Fernandes DO on 02/19/2022 1:56 PM CDT PATHOLOGY ADDENDUM: [...] placement. Pathology pending. ?? DICTATION LOCATION: ??Cindy Long Narrative 02/14/2022 4:18 PM CDT EXAM: ULTRASOUND-GUIDED CORE [...] status (age-related) (natural) documented in this encounter Administered Medications Inactive Administered Medications - up to 3 most recent administrations Medication Order MAR Action Action Date Dose Rate Site lidocaine PF 1% (XYLOCAINE MPF) injection 10 mL 10 mL, Infiltration, ONE TIME ONLY, 1 dose, On Tu02/14/22 at 1215, Routine Admin by Another Clinician (Comment) 02/14/2022 11:40 AM CDT 15 mL Operative Site documented in this encounter Care Teams Livestock Breeder Relationship Specialty Start Date End Date Francisco Long MD PCP - General Internal Medicine 06/27/18 documented as of this encounter
--- OUTSIDE RECORDS SUMMARY | 2024-11-16 13:26 | XMS_ITS | Encounter Summary ---
Author Organization [facility] Address [address] [place] [address] Care Team Providers Care Bulk Truck Driver Name Role Phone Francisco Long MD Primary Care Provider Unavailabl e Reason for Visit * Reason Comments Follow Up 6 months w/mmg & ult rasound Encounter Details Date Type Department Care Team (Late st Contact Info) Description 12/01/2020 11:45 AM INVENTORY TECHNICIAN Office Visit [facility] ONCOLOGY AND HEMATOLOGY-NORDEN LAQUITA [address] [place] [address] [place] [address] [address] [place] [address] Caron Mohan MD [address] [place] [address] Malignant neoplasm of upper-inner quadrant [...] COVID-19? No / Unsure 12/01/2020 10:08 AM INVENTORY TECHNICIAN documented as of this encounter Last Filed Vital Signs Vital Sign Reading Time Taken Comments Blood Pressure 128/64 12/01/2020 11:44 AM INVENTORY TECHNICIAN Pulse 68 12/01/2020 11:44 AM INVENTORY TECHNICIAN Temperature 36.5 ??C (97.7 ??F) 12/01/2020 11:[address] Respiratory Rate - - Oxygen Saturation 96% 12/01/2020 11:44 AM INVENTORY TECHNICIAN Inhaled Oxygen Concentration - - Weight - - Height 170.2 cm (5' 7 ) 12/01/2020 11:44 AM INVENTORY TECHNICIAN Body Mass Index - - documented in this encounter Progress Notes * Caron Mohan MD - 12/01/2020 11:46 AM CST [facility] Oncology and Hematology Date of Service: 12/01/2020 Patient: Jolene Cedillo : 1945 HPI Ms. [...] clot after knee surgery. DEXA 2017 at [facility] but unable to access results. INTERVAL HX Tolerating AI well. Rare HF. On MTX for RA - notes hands are more stiff. Asking if she has to take letrozole, worried about side effects. Had dysuria in October, resolved on its own. Liudmila today neg - no breast concerns. Pulmonary embolism Nov 2019. Doppler neg for DVT. Anticoagulation led to anemia (Hgb 7) required RBC tx due to GI bleed. Also got IV iron Scoped from above and below, only found gastritis, started PPI Energy level is good now, no more bleeding. H/o postop blood clot after TKR in the past - ?hypercoagulable state Current Outpatient Medications Medication Sig Dispense Refill ??? carvediloL (COREG) 6.25 mg tablet Take 6.25 mg by mouth 2 times daily with meals. ??? apixaban (Eliquis) 5 mg tablet Take 5 mg by mouth 2 times daily. ??? pantoprazole (PROTONIX) 40 mg Tablet, Delayed Release (E.C.) Take 40 mg by mouth. ??? letrozole (FEMARA) 2.5 mg Tablet TAKE [...] tablet Take 1 Tablet by mouth daily. No current facility-administered medications for this visit. ROS: Negative except as in HPI PHYSICAL EXAM BP 128/64 Pulse 68 Temp 97.7 ??F (36.5 ??C) Ht 5' 7 (1.702 m) SpO2 96% BMI 28.82 kg/m?? ECOG PS [...] following features: 1. Size: 12 mm. 2. Somerdale score: 6/9. 3. Lymphvascular invasion: Not identified. 4. Stage: pT1c. - Biomarker results: ER 8/8 (positive), ID 8/8 (positive), Her2 IHC 1+ (negative). - Low to intermediate grade ductal carcinoma in situ, minute focus, with associated calcifications. FINAL DIAGNOSIS A. 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 ?? B. Breast, left, lumpectomy: - Invasive ductal carcinoma, with the following features: 1. Size: 1.3 cm. 2. Donnie score: 6/9. 3. Margins: Invasive carcinoma 3 mm from the posterior margin. 4. Lymphvascular invasion: Not definitively identified. 5. Stage: pT1c snN1mi. 6. Biomarkers: HER2 1+ (ER and ID positive performed previously on [id number]). - Radial scar. - Intraductal papilloma (0.1 [...] Benign breast tissue, negative for carcinoma. SCANS [facility] today ASSESSMENT and PLAN Ms. Cedillo is a 74 y.o. woman with [id number] breast cancer, ER+/ID+/HER2-, NS 6. She has had lumpectomy. Dr. John Ag in [place] has completed her radiation. OncotypeDX RS=7, 11% recurrence, no benefit to chemo. Since her tumor is strongly ER/ID positive, I have recommended hormonal Rx with oral aromatase inhibitor. She is tolerating this well. Reviewed rationale for AI therapy, management of side effects. Bone density checked February 2019, normal - recheck in [place] this year is scheduled. Vitamin D, exercise reviewed. RTC 6 months OTHER ISSUES: H/o endometrial [...] hesitate to contact me. Caron Mohan MD NTORY TECHNICIAN documented in this encounter Plan of Treatment Upcoming Encounters Date Type Department Care Team (Late st Contact Info) Description 03/19/2025 10:45 AM CDT Appointment [facility] [address] [place] [phone] Caron Mohan MD [address] [facility] [address] [place] [phone] 03/19/2025 11:30 AM CDT Office Visit [facility] Oncology and Hematology Justin Long [address] [place] [address] Caron Mohan MD [address] [place] [phone] [place] [address] [place] [address] documented as of this encounter [...] embolism documented in this encounter Care Teams Bulk Truck Driver Relationship Specialty Start Date End Date Francisco Long MD PCP - General Internal Medicine 06/27/18 documented as of this encounter
--- OUTSIDE RECORDS SUMMARY | 2024-11-16 13:27 | XMS_ITS | Encounter Summary ---
Author Organization [facility] Address [address] [place] [address] Care Team Providers Care Proposal Editor Name Role Phone Francisco Long MD Primary Care Provider Unavailabl e Encounter Details Date Type Department Care Team (Late st Contact Info) Description 02/12/2019 Orders Only [facility] ONCOLOGY AND HEMATOLOGY-[place] [address] [place] [address] Caron Mohan MD [address] [facility] [address] [place] [address] Vitamin D deficiency (Primary Dx); Aromatase inhibitor use; Malignant neoplasm of upper-inner quadrant of left breast in female, estrogen receptor positive Social History Tobacco Use Types Packs/Day Years [...] Description 03/19/2025 10:45 AM CDT Appointment [facility] [address] [address] [place] [address] Caron Mohan MD [address] [facility] [address] [place] [address] 03/19/2025 11:30 AM CDT Office Visit [facility] Oncology and Hematology [address] Long [address] [address] [place] [address] Caron Mohan MD [address] [place] [address] Chaya Juarez, ESEQUIEL [address] [place] [address] documented as of this encounter Results * (ABNORMAL) VITAMIN D 25 HYDROXY (05/14/2019 11:22 AM CDT) Pathologist [facility] VITAMIN D TOTAL (25OH) 29(L) 30 - 100 ng/mL 05/15/2019 2:20 AM CDT [facility] [employer] [facility] Blood Venipuncture / Unknown 05/14/2019 11:22 AM CDT 05/14/2019 11:22 AM CDT Narrative [facility] - 05/15/2019 2:20 AM CDT Interpretive Data Chart: Deficient: 0 - 20 ng/mL Insufficient: 21 - 29 ng/mL Sufficient: 30 - 100 ng/mL Increased Risk of Hypercalciuria: >100 ng/mL Toxic: >150 ng/mL Caron Mohan MD CHEMISTRY ORDERABLES [facility] [employer] [facility] CLIA# [id number] [address] JO[place] TRUJILLO [place] [id number] documented in this encounter Visit Diagnoses Diagnosis Vitamin D deficiency- Primary Unspecified vitamin D deficiency Aromatase inhibitor use Use of aromatase inhibitors Malignant neoplasm of upper-inner quadrant of left breast in female, estrogen receptor positive documented in this encounter Care Teams Proposal Editor Relationship Specialty Start Date End Date Francisco Long MD PCP - General Internal Medicine 06/27/18 documented as of this encounter
--- OUTSIDE RECORDS SUMMARY | 2024-11-16 13:27 | XMS_ITS | Encounter Summary ---
Author Organization [facility] Address [address] [place] [address] Care Team Providers Care Warp Dyeing Tender Name Role Phone Francisco Long MD Primary Care Provider Unavailabl e Reason for Visit * Auth/Cert Specialty Diagnoses / Procedures Referred By Halima garcia Referred To Contact Laboratory [facility] Outpatient Laboratory [facility] [address] [place] [address] Referral ID Status Reason Start Date Expiration Date Visits Re quested Visits Authorized [id number] 1 1 Encounter Details Date Type Department Care Team (Latest Contact Info) Description 02/10/2019 11:04 AM CDT - 02/10/2019 11:59 PM CDT Hospital Encounter [facility] Outpatient Laboratory Services [address] [address] [place] [address] Caron Mohan MD [address] [place], [place] [phone] Discharge Disposition: Home or Self Care Social [...] Sig Dispensed Refills Start Date End Date methotrexate (RHEUMATREX) 2.5 mg Tablet Take 2.5 mg by mouth every 7 days. 6 tabs on Sunday' letrozole (FEMARA) 2.5 mg Tablet Take 1 Tablet (2.5 mg) by mouth daily. 90 Tablet 3 02/10/2019 02/16/2020 losartan-hydroCHLOROthia zide (HYZAAR) 100-12.5 mg tablet Take 1 Tablet by mouth daily. 06/08/2021 documented as of this encounter Plan of Treatment Upcoming Encounters Date Type Department Care Team (Late st Contact Info) Description 03/19/2025 10:[address] [facility] [address] [address] [place] [phone] Caron Mohan MD [address] [place] [address] 03/19/2025 11:30 AM CDT Office Visit [facility] Oncology and Hematology [place] [address] [place] [address] Caron Mohan MD [address] [place] [address] [place] [address] [facility] [address] [place] [address] documented as of this encounter Procedures Procedure Name Priority Date/Time Associated Diagnosis Comments VITAMIN D 25 HYDROXY Routine 02/10/2019 11:10 AM CDT Vitamin D deficiency documented in this encounter Results * (ABNORMAL) VITAMIN D 25 HYDROXY (02/10/2019 11:10 AM CDT) VITAMIN D TOTAL (25OH) 20(L) 30 - 100 ng/mL 02/10/2019 7:19 PM CDT [facility] [employer] [facility] Blood Venipuncture / Unknown 02/10/2019 11:10 AM CDT 02/10/2019 11:10 AM CDT Narrative [facility] [employer] [facility] - 02/10/2019 7:19 PM CDT Interpretive Data Chart: Deficient: 0 - 20 ng/mL Insufficient: 21 - 29 ng/mL Sufficient: 30 - 100 ng/mL Increased Risk of Hypercalciuria: >100 ng/mL Toxic: >150 ng/mL Caron Mohan MD CHEMISTRY ORDERABLES Performing Organization Address [facility]/State/ZIP Co de Phone Number [facility]# [id number] [address] [place] [address] documented in this encounter Visit Diagnoses Diagnosis Vitamin D deficiency Unspecified vitamin D deficiency documented in this encounter Care Teams Warp Dyeing Tender Relationship Specialty Start Date End Date Francisco Long MD PCP - General Internal Medicine 06/27/18 documented as of this encounter
--- OUTSIDE RECORDS SUMMARY | 2024-11-16 13:27 | XMS_ITS | Encounter Summary ---
Author Organization [employer] Address [address] [place] [address] Care Team Providers Care Grain Inspector Name Role Phone Francisco Long MD Primary Care Provider Unavailabl e Reason for Referral * Radiology Services (Routine) - Closed Specialty Diagnoses / Procedures Referred By Halima garcia Referred To Contact Diagnoses Malignant neoplasm of upper-inner quadrant of left breast in female, estrogen receptor positive Procedures MAMMO DIAG UNI LEFT 3D CATHY W OR WO CAD CHG DIAGNOSTIC MAMMOGRAPHY COMPUTER-AIDED DETCJ UNI CHG DIGITAL BREAST TOMOS[place] [address] [place] [address] Referral ID Status Reason Start Date Expiration Date Visits Re quested Visits Authorized [id number] Closed 12/11/2018 01/11/2020 1 1 Reason for Visit * Radiology Services (Routine) - Closed Specialty Diagnoses / Procedures Referred By Halima garcia Referred To Contact Diagnoses Malignant neoplasm of upper-inner quadrant of left breast in female, estrogen receptor positive Procedures MAMMO DIAG UNI LEFT 3D CATHY W OR WO CAD CHG DIAGNOSTIC MAMMOGRAPHY COMPUTER-AIDED DETCJ UNI CHG DIGITAL BREAST TOMOS[place] [address] [place] [address] Referral ID Status Reason Start Date Expiration Date Visits Re quested Visits Authorized [id number] Closed 12/11/2018 01/11/2020 1 1 Encounter Details Date Type Department Care Team (Latest Contact Info) Description 05/14/2019 9:53 AM CDT - 05/14/2019 11:59 PM CDT Hospital Encounter [facility] [address] [address] [place] [address] [place] [address] [place] [address] Discharge Disposition: Home or Self Care [...] Info) Description 03/19/2025 10:45 AM CDT Appointment [facility] [place] [address] [place] [address] Caron Mohan MD [address] [place] [phone] 03/19/2025 11:30 AM CDT Office Visit [facility] Oncology and Hematology [place] Long [address] [place] [address] Caron Mohan MD [address] [place] [phone] [place] [address] [facility] [address] [place] [address] documented as of this encounter Procedures Procedure Name Priority Date/Time Associated Diagnosis Comments MAMMO DIAG UNI LEFT 3D CATHY W OR WO CAD Routine 05/14/2019 10:27 AM CDT Malignant neoplasm of upper-inner quadrant of left breast in female, estrogen receptor positive documented in this encounter Results * MAMMO DIAG UNI LEFT 3D CATHY W OR WO CAD (05/14/2019 10:27 AM CDT) Anatomical Region Laterality Modality Breast Left Mammography 05/14/2019 10:2 7 AM CDT Impressions 05/14/2019 3:17 PM CDT IMPRESSION: Evolving postsurgical changes in the upper-inner left breast. Recommendation: Annual mammography is recommended. DICTATION LOCATION: ??Cindy Long Narrative 05/14/2019 3:17 PM CDT LEFT UNILATERAL FULL-FIELD DIGITAL DIAGNOSTIC MAMMOGRAM WITH [...] Overall assessment: BI-RADS Category 2: Benign findings Procedure Note Fortino Coleman MD - 05/14/2019 LEFT UNILATERAL FULL-FIELD DIGITAL DIAGNOSTIC MAMMOGRAM WITH [...] Overall assessment: BI-RADS Category 2: Benign findings IMPRESSION: Evolving postsurgical changes in the upper-inner left breast. Recommendation: Annual mammography is recommended. DICTATION LOCATION: [facility] Ita Vazquez MD MAMMO ORDERABLES documented in this encounter Visit Diagnoses Diagnosis Malignant neoplasm of upper-inner quadrant of left breast in female, estrogen receptor positive documented in this encounter Care Teams Grain Inspector Relationship Specialty Start Date End Date Francisco Long MD PCP - General Internal Medicine 06/27/18 documented as of this encounter
--- OUTSIDE RECORDS SUMMARY | 2024-11-16 13:27 | XMS_ITS | Encounter Summary ---
Author Organization [facility] Address [address] [place] [address] Care Team Providers Care Retail Warehouse Associate Name Role Phone Francisco Long MD [...] DIGITAL BREAST [place] [address] [place] [address] Referral ID Status Reason Start Date Expiration Date Visits Re quested Visits Authorized [id number] Closed 05/14/2019 06/13/2020 1 1 Reason for Visit * Reason Comments Follow Up 6 MONTHS Encounter Details Date Type Department Care Team (Late st Contact Info) Description 05/14/2019 11:00 AM CDT Office Visit [facility] BREAST SURGERY - [place] C[facility] [address] [place] [address] [place] [address] [place] [address] Malignant neoplasm of upper-inner quadrant [...] Sign Reading Time Taken Comments Blood Pressure 124/72 05/14/2019 10:34 AM CDT Pulse 72 05/14/2019 10:34 AM CDT Temperature - - Respiratory Rate - - Oxygen Saturation - - Inhaled Oxygen Concentration - - Weight 86.2 kg (190 lb) 05/14/2019 10:34 AM CDT Height 170.2 cm (5' 7 ) 05/14/2019 10:34 AM CDT Body Mass Index 29.76 05/14/2019 10:34 AM CDT documented in this encounter Progress Notes * Ita Vazquez MD - 05/14/2019 10:44 AM CDT PATIENT: Jolene Cedillo : 1945 DATE: 05/14/2019 Stage: Clinical T1 N0; pT1c snN1mi Date of diagnosis: 09/23/18 Diagnosis: LEFT IDC ER(+) CO(+) Her 2 (-) Surgeon: Taylor Surgery: 11/22/18 left lump/SLN Medical Oncologist: Kimberlee Chemotherapy: none Radiation Oncologist: Dr. John Ag office at [facility] Radiation: Hormonal therapy: Femara CHIEF COMPLAINT: breast [...] ??? 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 CO BX/REMV,LYMPH NODE,DEEP AXILL Left 11/22/2018 LEFT AXILLARY SENTINEL LYMPH NODE BIOPSY WITH NUC MED AT 7:45 AM performed by Ita Vazquez MD at [facility] OR ??? CO LAP,LYMPH NODE BX N/A 07/09/2018 PELVIC LYMPH NODE STAGING DAVINCI SI performed by Micki Cadena MD at [facility] OR [facility] ??? CO LAP,RMV ADNEXAL STRUCTURE Bilateral 07/09/2018 SALPINGO-OOPHORECTOMY DAVINCI SI performed by Micki Cadena MD at [facility] OR [facility] ??? CO LAPAROSCOPY W TOT HYSTERECT UTERUS 250 GRAM OR LESS N/A 07/09/2018 HYSTERECTOMY TOTAL DAVINCI SI performed by Micki Cadena MD at [facility] OR [facility] ??? CO MASTECTOMY, PARTIAL Left 11/22/2018 LEFT BREAST LUMPECTOMY WITH NLOC @ 8:30 AM performed by Ita Vazquez MD at [facility] CC OR ALLERGY: Allergies Allergen Reactions ??? Atorvastatin Muscle Pain ??? Codeine Nausea and Vomiting Reaction: Nausea, MEDS: Current Outpatient Medications Medication Sig Dispense Refill ??? ergocalciferol (VITAMIN D2) 50,000 unit capsule Take 1 Capsule (50,000 Units) by mouth every 7 days. 12 Capsule 0 ??? calcium carbonate + vitamin D (CALTRATE+D) [...] mouth every 7 days 6 tabs on Sunday's. ??? losartan-hydroCHLOROthiazide (HYZAAR) 100-12.5 mg tablet Take [...] file Gets together: Not on file Attends hindu service: Not on file Active member of [...] noted above. Immunizations: non-contributory PHYSICAL EXAM: BP 124/72 (BP Location: Right arm, Patient Position (BP): Sitting, BP Cuff Size: Adult) Pulse 72 Ht 5' 7 (1.702 m) Wt 86.2 kg (190 lb) ? No BMI 29.76 kg/m?? General: well-developed, well-nourished HEENT: [...] lymphadenopathy. IMAGING: I personally reviewed imaging dated: 05/14/19: left mammogram- post-operative changes 09/03/18: Bilateral mammogram with left additional views and ultrasound at [place]- there is a new 16 mm irregular mass at 9:00 on the left. Stable 1.7 cm nodular density in the left subareolar breast. By ultrasound this measures 1.3 cm. Biopsy is recommended 05/25/17: Bilateral mammogram PATHOLOGY: 11/22/19 A. 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 ?? B. Breast, left, lumpectomy: - Invasive ductal carcinoma, with the following features: 1. Size: 1.3 cm. 2. [place] score: /9. 3. Margins: Invasive carcinoma 3 mm from the posterior margin. 4. Lymphvascular invasion: Not definitively identified. 5. Stage: pT1c snN1mi. 6. Biomarkers: HER2 1+ (ER and CO positive performed previously on [id number]). - Radial scar. - Intraductal papilloma (0.1 [...] following features: ?1. Size: ??12 mm. ?2. Donnie score: 05/04. ?3. Lymphvascular invasion: Not identified. ?4. Stage: pT1c. - Biomarker results: ??ER 07/03 (positive), CO 07/03 (positive), Her2 IHC 1+ (negative). - Low to intermediate grade ductal carcinoma in situ, minute focus, with associated calcifications ASSESSMENT AND PLAN: Stage I cancer of the left breast. There is no evidence of local recurrence. I will see her in October with a bilateral mammogram. I have encouraged her to continue to massage her lumpectomy area and to use daily lotion. Ita Vazquez MD, FACS cc: Francisco Long MD Murray, Karuna, MD documented in this encounter Plan of Treatment Upcoming Encounters Date Type Department Care Team (Late st Contact Info) Description 03/19/2025 10:45 AM CDT Appointment [facility] [address] [place] [address] Caron Mohan MD [address] [facility] [address] [place] [phone] 03/19/2025 11:30 AM CDT Office Visit [facility] Oncology and Hematology [address] [place] [address] Caron Mohan MD [address] [facility] [address] [place] [phone] [place] [address] [place] [address] documented as of this encounter Results * MAMMO DIAG BILAT 3D CATHY W OR WO CAD (11/12/2019 9:26 AM WIRE STRAIGHTENER) Anatomical Region Laterality Modality Breast Bilateral Mammography 11/12/2019 9:26 AM WIRE STRAIGHTENER Impressions 11/13/2019 3:59 PM WIRE STRAIGHTENER IMPRESSION: No suspicious findings to suggest malignancy in either breast. Annual mammography is recommended. OVERALL FINAL ASSESSMENT: ??BI-RADS CATEGORY 2: Benign findings Narrative 11/13/2019 3:59 PM WIRE STRAIGHTENER EXAM: BILATERAL DIAGNOSTIC DIGITAL MAMMOGRAM WITH 3D TOMOSYNTHESIS AND CAD DATE: 11/12/2019 9:26 AM HISTORY: Personal history of breast cancer with prior left conservation therapy. [facility] COMPARISON: 05/14/2019 and older. TECHNIQUE: Mediolateral oblique, [...] with prior left conservation therapy. DICTATION LOCATION: [facility] COMPARISON: 05/14/2019 and older. TECHNIQUE: Mediolateral oblique, [...] left breast in female, estrogen receptor positive Malignant neoplasm of upper-inner quadrant of left breast in female, estrogen receptor positive documented in this encounter Care Teams Retail Warehouse Associate Relationship Specialty Start Date End Date Francisco Long MD PCP - General Internal Medicine 06/27/18 documented as of this encounter
--- OUTSIDE RECORDS SUMMARY | 2024-11-16 13:27 | XMS_ITS | Encounter Summary ---
Author Organization [facility] Address [address] [place] [address] Care Team Providers Care Head Porter Baggage Name Role Phone Francisco Long MD Primary Care Provider Unavailabl e Encounter Details Date Type Department Care Team (Late Contact Info) Description 03/14/2019 Orders Only [facility] ONCOLOGY AND [facility]ATOLOGY-[place] [address] [place] [address] Caron Mohan MD [address] [facility] [address] [place] [address] Menopausal and perimenopausal disorder ; Malignant neoplasm of upper-inner quadrant of left [...] [facility] [address] [place] [address] Caron Mohan MD [address] [facility] [address] [place] [address] 03/19/2025 11:30 AM CDT Office Visit [facility] Oncology and Hematology [address] [place] [address] Caron Mohan MD [address] [place] [address] [place] [address] [place] [address] documented as of this encounter Procedures Procedure Name Priority Date/Time Associated Diagnosis Comments XR DEXA BONE DENSITY AXIAL 1 OR MORE SITES Routine 03/11/2019 Menopausal and perimenopausal disorder Malignant neoplasm of upper-inner quadrant of left breast in female, estrogen receptor positive documented in this encounter Results * XR DEXA BONE DENSITY AXIAL 1 OR MORE SITES (03/11/2019) Anatomical Region Laterality Modality Other Caron Mohan MD DIAGNOSTIC IMAGING O RDERABLES documented in this encounter Visit Diagnoses Diagnosis Menopausal and perimenopausal disorder Unspecified menopausal and postmenopausal disorder Malignant neoplasm of upper-inner quadrant of left breast in female, estrogen receptor positive documented in this encounter Care Teams Head Porter Baggage Relationship Specialty Start Date End Date Francisco Long MD PCP - General Internal Medicine 06/27/18 documented as of this encounter
--- OUTSIDE RECORDS SUMMARY | 2024-11-16 13:27 | XMS_ITS | Encounter Summary ---
Author Organization [facility] Address [address] [place] [address] Care Team Providers Care Treatment Plant Mechanic Name Role Phone Francisco Long MD Primary Care Provider Unavailabl e Encounter Details Date Type Department Care Team (Late st Contact Info) Description 04/11/2019 Orders Only [facility] BREAST SURGERY - [place] [facility] [address] [place] [address] Provider, Abstract NO ADDRESS ON FILE Social [...] Description 03/19/2025 10:45 AM CDT Appointment [facility] [address] [place] [phone] Caron Mohan MD [address] [facility] [address] [place] [phone] 03/19/2025 11:30 AM CDT Office Visit [facility] Oncology and Hematology [address] [place] [address] Caron Mohan MD [address] [facility] [address] [place] [phone] [place] [address] [place] [phone] documented as of this encounter Procedures Procedure Name Priority Date/Time Associated Diagnosis Comments NM BONE DENSITY Routine 03/11/2019 documented in this encounter Results * NM BONE DENSITY (03/11/2019) Anatomical Region Laterality Modality Other Abstract Provider NM ORDERABLES documented in this encounter Visit Diagnoses Not on filedocumented in this encounter Care Teams Treatment Plant Mechanic Relationship Specialty Start Date End Date Francisco Long MD PCP - General Internal Medicine 06/27/18 documented as of this encounter
--- OUTSIDE RECORDS SUMMARY | 2024-11-16 13:27 | XMS_ITS | Encounter Summary ---
Author Organization [facility] Address [address] [place] [address] Care Team Providers Care Sales Engineer Account Manager Name Role Phone Francisco Long MD Primary Care Provider Unavailabl e Reason for Visit * Reason Onset Date Comments Medication Refill Medication Refill 05/15/2019 Encounter Details Date Type Department Care Team (Late Contact Info) Description 05/10/[address] [facility] ONCOLOGY AND HEMATOLOGY-[place] [address] [place] [phone] Caron Mohan MD [address] [facility] [address] [place] [address] Social History Tobacco Use Types Packs/Day Years [...] Encounter - Pricilla Olsen RN - 05/15/2019 12:30 PM CDT Completed course documented in this encounter Plan of Treatment Upcoming Encounters Date Type Department Care Team (Late Contact Info) Description 03/19/2025 10:45 AM CDT Appointment [facility] [address] [address] [place] [phone] Caron Mohan MD [address] [place] [address] 03/19/2025 11:30 AM CDT Office Visit [facility] Oncology and Hematology [address] [place] [address] Caron Mohan MD [address] [facility] [address] [place], [place] [phone] [place] [address] [place] [address] documented as of this encounter Visit Diagnoses Not on filedocumented in this encounter Care Teams Sales Engineer Account Manager Relationship Specialty Start Date End Date Francisco Long MD PCP - General Internal Medicine 06/27/18 documented as of this encounter
--- OUTSIDE RECORDS SUMMARY | 2024-11-16 13:27 | XMS_ITS | Encounter Summary ---
Author Organization [facility] Address [address] [place] [address] Care Team Providers Care Top Trimmer Name Role Phone Francisco Long MD Primary Care Provider Unavailabl e Reason for Visit * Reason Comments Follow Up 3 months Distress sc reening Encounter Details Date Type Department Care Team (Late st Contact Info) Description 05/14/2019 9:15 AM CDT Office Visit [facility] [address] [facility] [address] [place] [address] Caron Mohan MD [address] [place], [place] [phone] Malignant neoplasm of upper-inner quadrant of left breast in female, estrogen receptor positive (Primary Dx); Vitamin D deficiency; 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 rheumatoid factor Social History Tobacco Use Types Packs/Day Years [...] Time Taken Comments Blood Pressure 124/72 05/14/2019 9:25 AM CDT Pulse 72 05/14/2019 9:25 AM CDT Temperature 36.5 ??C (97.7 ??F) 05/14/2019 9:25 AM CD T Respiratory Rate - - Oxygen Saturation 95% 05/14/2019 9:25 AM CDT Inhaled Oxygen Concentration - - Weight 86.2 kg (190 lb 1.9 oz) 05/14/2019 9:25 A M CDT Height 170.2 cm (5' 7 ) 05/14/2019 9:25 AM CDT Body Mass Index 29.78 05/14/2019 9:25 AM CDT documented in this encounter Progress Notes * Caron Mohan MD - 05/14/2019 9:38 AM CDT [facility] Oncology and Hematology Date of Service: 05/14/2019 Patient: Jolene Cedillo : 1945 HPI Ms. [...] clot after knee surgery. DEXA 2017 at [facility] but unable to access results. INTERVAL HX Tolerating AI well. Rare HF. RA is stable on MTX. Liudmila today - no breast concerns. Patient History Past Medical History: Diagnosis Date ??? Arthritis RA ??? At risk for obstructive sleep apnea STOP BANG 4 ??? Cancer 05/2018 UTERINE ??? Dyspnea on exertion ??? HTN (hypertension) ??? 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 HX BREAST LUMPECTOMY FOR CANCER Left 11/22/2018 IDC ??? HX CATARACT EXTRACTION, BILATERAL ??? HX CORE NEEDLE BREAST BIOPSY Left 09/23/2018 IDC ??? HX HYSTERECTOMY 07/09/2018 Partial ??? 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 CO BX/REMV,LYMPH NODE,DEEP AXILL Left 11/22/2018 LEFT AXILLARY SENTINEL LYMPH NODE BIOPSY WITH NUC MED AT 7:45 AM performed by Ita Vazquez MD at [facility] CC OR ??? CO LAP,LYMPH NODE BX N/A 07/09/2018 PELVIC LYMPH NODE STAGING DAVINCI SI performed by Micki Cadena MD at [facility] OR [facility] ??? CO LAP,RMV ADNEXAL STRUCTURE Bilateral 07/09/2018 SALPINGO-OOPHORECTOMY DAVINCI SI performed by Micki Cadena MD at [facility] OR [facility] ??? CO LAPAROSCOPY W TOT HYSTERECT UTERUS 250 GRAM OR LESS N/A 07/09/2018 HYSTERECTOMY TOTAL DAVINCI SI performed by Micki Cadena MD at [facility] OR [facility] ??? CO MASTECTOMY, PARTIAL Left 11/22/2018 LEFT BREAST LUMPECTOMY WITH NLOC @ 8:30 AM performed by Ita Vazquez MD at [facility] CC OR Social History Socioeconomic [...] or rashes. Psych: No depression or anxiety. raw stock drier tender:No vaginal discharge or abnormal bleeding. Breasts: see HPI PHYSICAL EXAM BP 124/72 Pulse 72 Temp 97.7 ??F (36.5 ??C) Ht 5' 7 (1.702 m) Wt 86.2 kg (190 lb 1.9 oz) SpO2 95% BMI 29.78 kg/m?? ECOG PS = 0 General appearance: [...] AM Lab Results Component Value Date/Time VITAMINDTO 20 (L) 02/10/2019 11:10 AM FINAL DIAGNOSIS 09/23/18 Breast, left, core biopsy: - Invasive ductal carcinoma, with the following features: 1. Size: 12 mm. 2. [place] score: 6/9. 3. Lymphvascular invasion: Not identified. 4. Stage: pT1c. - Biomarker results: ER 8/8 (positive), CO 8/8 (positive), Her2 IHC 1+ (negative). - Low to intermediate grade ductal carcinoma in situ, minute focus, with associated calcifications. FINAL DIAGNOSIS A. 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 ?? B. Breast, left, lumpectomy: - Invasive ductal carcinoma, with the following features: 1. Size: 1.3 cm. 2. [place] score: 6/9. 3. Margins: Invasive carcinoma 3 mm from the posterior margin. 4. Lymphvascular invasion: Not definitively identified. 5. Stage: pT1c snN1mi. 6. Biomarkers: HER2 1+ (ER and CO positive performed previously on [id number]). - Radial scar. - Intraductal papilloma (0.1 [...] Benign breast tissue, negative for carcinoma. SCANS No results found for this or any previous visit. LEFT UNILATERAL FULL-FIELD DIGITAL DIAGNOSTIC MAMMOGRAM WITH 3-D TOMOSYNTHESIS AND CAD ?? DATE: 05/14/2019 10:27 AM ?? HISTORY: Previous breast conservation therapy on the left in October of 2018. Short-term follow-up is requested to assess for stability and reestablish baseline. ?? COMPARISON: March 2016 through October 2018. ?? TECHNIQUE: Low Dose full field Digital Breast tomosynthesis examination was performed with 2D and 3D acquisitions. Examination is read in conjunction with computer aided detection. ?? BREAST COMPOSITION: Heterogeneously dense which lowers the sensitivity of mammography. ?? FINDINGS: Evolving postsurgical changes are identified in the upper-inner quadrant of the left breast at the mid to posterior depth. No residual or recurrent mass is appreciated. No suspicious microcalcifications are seen within the left breast. CAD is utilized. ?? Overall assessment: BI-RADS Category 2: Benign findings ? IMPRESSION: Evolving postsurgical changes in the upper-inner left breast. ?? Recommendation: Annual mammography is recommended. ASSESSMENT and PLAN Ms. Cedillo is a 73 y.o. woman with [id number] breast cancer, ER+/CO+/HER2-, NS 6. Since she has had lumpectomy done, she will need adjuvant XRT. Dr. John Ag in [place] has completed her radiation. Since her tumor is strongly ER/CO positive, I have recommended hormonal Rx with oral aromatase inhibitor. She is tolerating this well. Bone density checked February 2019, normal Vitamin D = 20 on 02/10/19, recheck level today after replacement. RTC 6 months We have previously discussed the use of OncotypeDX to estimate her individual risk of recurrence and her benefit from chemotherapy vs. Hormonal therapy alone.RS=7, 11% recurrence, no benefit to chemo. OTHER ISSUES: H/o endometrial cancer - very early stage, f/u with Dr. Surinder BERNARDO - continue MTX - may need to stop this temporarily if chemo is given Iron deficiency - Getting colonoscopy in September. Consider genetic testing due to breast and endometrial cancer. NCCN Distress Score: 2 (05/14/19 0928) Distress screening was performed and reviewed with patient. The following services were offered to the patient to help alleviate questions and concerns: none needed. TOBACCO COUNSELING She is not a tobacco [...] AM CDT Appointment [facility] [address] [place] [phone] Caron Mohan MD [address] [place], [place] [phone] 03/19/2025 11:30 AM CDT Office Visit [facility] Oncology and Hematology [address] [facility] [address] [place] [address] Caron Mohan MD [address] [place], [place] [phone] [place] [address] [place] [address] documented as of this encounter Visit Diagnoses Diagnosis Malignant neoplasm of upper-inner quadrant of left breast in female, estrogen receptor positive- Primary Vitamin D deficiency Unspecified vitamin D deficiency 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 rheumatoid factor documented in this encounter Care Teams Top Trimmer Relationship Specialty Start Date End Date Francisco Long MD PCP - General Internal Medicine 06/27/18 documented as of this encounter
--- OUTSIDE RECORDS SUMMARY | 2024-11-16 13:27 | XMS_ITS | Encounter Summary ---
Author Organization [facility] Address [address] [place] [address] Care Team Providers Care Log Sorting Supervisor Name Role Phone Francisco Long MD Primary Care Provider Unavailabl e Reason for Visit * Reason Onset Date Comments Results 02/12/2019 med orders 02/12/2019 Encounter Details Date Type Department Care Team (Late st Contact Info) Description 02/12/2019 Patient Outreach [facility] ONCOLOGY AND HEMATOLOGY-[place] [address] [facility] [address] [place] [address] Caron Mohan MD [address] [place] [address] Results; med orders Social History Tobacco Use Types Packs/Day Years [...] Telephone Encounter - Pricilla Olsen RN - 02/12/2019 4:41 PM CDT Images from the original note were not included. Message Received: Today Message Contents Caron Mohan MD P [facility] Med Onc Nurse ??02/10/19 .The patient has vitamin D deficiency and I suggest Vitamin D 50, 000 I.U. pill once a week for 12 weeks, then recheck level. Start daily calcium supplement. RTC as planned. (05/14/19) Verbalized understanding Medications ordered documented in this encounter Plan of Treatment Upcoming Encounters Date Type Department Care Team (Late st Contact Info) Description 03/19/2025 10:45 AM CDT Appointment [facility] [address] [place] [phone] Caron Mohan MD [address] [facility] [address] [place], [place] [phone] 03/19/2025 11:30 AM CDT Office Visit [facility] Oncology and Hematology [place] [address] [place] [address] Caron Mohan MD [address] [facility] [facility] [address] [place], [place] [phone] [place] [address] [facility] [address] [place] [address] documented as of this encounter Visit Diagnoses Not on filedocumented in this encounter Care Teams Log Sorting Supervisor Relationship Specialty Start Date End Date Francisco Long MD PCP - General Internal Medicine 06/27/18 documented as of this encounter
--- OUTSIDE RECORDS SUMMARY | 2024-11-16 13:27 | XMS_ITS | Encounter Summary ---
Author Organization [facility] Address [address] [place] [address] Care Team Providers Care Ship'S Pilot Name Role Phone Francisco Long MD Primary Care Provider Unavailabl e Encounter Details Date Type Department Care Team (Late st Contact Info) Description 02/12/2019 Orders Only [facility] ONCOL[facility]Y AND HEMATOLOGY-[place] [address] [place] [phone] Pricilla Olsen RN Social History Tobacco Use Types Packs/Day [...] Info) Description 03/19/2025 10:45 AM CDT Appointment [facility] [address] [address] [place] [address] Caron Mohan MD [address] [facility] [address] [place] [phone] 03/19/2025 11:30 AM CDT Office Visit [facility] Oncology and Hematology [address] [place] [address] Caron Mohan MD [address] [facility] [address] [place] [phone] [place] [address] [place] [phone] documented as of this encounter Visit Diagnoses Not on filedocumented in this encounter Care Teams Ship'S Pilot Relationship Specialty Start Date End Date Francisco Long MD PCP - General Internal Medicine 06/27/18 documented as of this encounter
--- OUTSIDE RECORDS SUMMARY | 2024-11-16 13:28 | XMS_ITS | Encounter Summary ---
Author Organization [facility] Address [address] [place] [address] Care Team Providers Care Florist Supplies Salesperson Name Role Phone Francisco Long MD Primary Care Provider Unavailabl e Reason for Visit * Reason Onset Date Comments Abnormal Lab Results 12/24/2018 Encounter Details Date Type Department Care Team (Late st Contact Info) Description 12/24/[address] [facility] ONCOLOGY AND HEMATOLOGY-[place] [address] [place] [address] Caron Mohan MD [address] [facility] [address] [place], [place] [phone] Abnormal Lab Results Social History Tobacco Use Types Packs/Day [...] Telephone Encounter - Caron Mohan MD - 12/24/2018 12:56 PM PEARL DIVER I called her with Oncotype results. Low risk, no benefit to chemotherapy. Proceed with RT in and see me in January. Pt understands, questions answered. L DIVER documented in this encounter Plan of Treatment Upcoming Encounters Date Type Department Care Team (Late st Contact Info) Description 03/19/2025 10:[address] [facility] [address] [place] [phone] Caron Mohan MD [address] [place], [place] [phone] 03/19/2025 11:30 AM CDT Office Visit [facility] Oncology and Hematology [address] [place] [address] Caron Mohan MD [address] [place], [place] [phone] [place] [address] [address] [place] [address] documented as of this encounter Visit Diagnoses Not on filedocumented in this encounter Care Teams Florist Supplies Salesperson Relationship Specialty Start Date End Date Francisco Long MD PCP - General Internal Medicine 06/27/18 documented as of this encounter
--- OUTSIDE RECORDS SUMMARY | 2024-11-16 13:28 | XMS_ITS | Encounter Summary ---
Author Organization [facility] Address [address] [place] [address] Care Team Providers Care Clay Transporter Name Role Phone Francisco Long MD Primary Care Provider Unavailabl e Reason for Referral * Radiology Services (Routine) - Closed Specialty Diagnoses / Procedures Referred By Halima t Referred To Contact Diagnoses Menopausal and perimenopausal disorder Malignant neoplasm of upper-inner quadrant of left breast in female, estrogen receptor positive Procedures XR DEXA BONE DENSITY AXIAL 1 OR MORE SITES Caron Mohan MD [address] [place] [id number] Referral ID Status Reason Start Date Expiration Date V isits Requested Visits Authorized [id number] Closed [facility] CTS 02/10/2019 03/12/2020 1 1 Reason for Visit * Reason Comments Follow Up 2 months Encounter Details Date Type Department Care Team (Latest Contact Info) Description 02/10/2019 10:15 AM CDT Office Visit [facility] ONCOLOGY [facility]ATOLOG[facility] [address] [facility] [address] [place] [phone] Caron Mohan MD [address] [facility] [address] [place] [address] Malignant neoplasm of upper-inner quadrant of left breast in female, estrogen receptor positive (Primary Dx); 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 rheumatoid factor; Vitamin D deficiency; Menopausal and perimenopausal disorder ; Iron deficiency anemia due to chronic blood [...] Sign Reading Time Taken Comments Blood Pressure 128/70 02/10/2019 9:57 AM CDT Pulse 81 02/10/2019 9:57 AM CDT Temperature - - Respiratory Rate - - Oxygen Saturation 97% 02/10/2019 9:57 AM CDT Inhaled Oxygen Concentration - - Weight 86.2 kg (190 lb) 02/10/2019 9:57 AM CDT Height 170.2 cm (5' 7 ) 02/10/2019 9:57 AM CDT Body Mass Index 29.76 02/10/2019 9:57 AM CDT documented in this encounter Progress Notes * Caron Mohan MD - 02/10/2019 10:04 AM CDT [facility] Oncology and Hematology Date of Service: 02/10/2019 Patient: Jolene Cedillo : 1945 HPI Ms. [...] clot after knee surgery. DEXA [address] [facility] but unable to access results. INTERVAL HX Completed RT 1 week ago. Tolerated well. Here to start endocrine therapy. Patient History Past Medical History: Diagnosis Date [...] HYSTERECTOMY 07/09/2018 Partial ??? 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 WY BX/REMV,LYMPH NODE,DEEP AXILL Left 11/22/2018 LEFT AXILLARY SENTINEL LYMPH NODE BIOPSY WITH NUC MED AT 7:45 AM performed by Ita Vazquez MD at [facility] OR ??? WY LAP,LYMPH NODE BX N/A 07/09/2018 PELVIC LYMPH NODE STAGING DAVINCI SI performed by Micki Cadena MD at [facility] OR [facility] ??? WY LAP,RMV ADNEXAL STRUCTURE Bilateral 07/09/2018 SALPINGO-OOPHORECTOMY DAVINCI SI performed by Micki Cadena MD at [facility] OR [facility] ??? WY LAPAROSCOPY W TOT HYSTERECT UTERUS 250 GRAM OR LESS N/A 07/09/2018 HYSTERECTOMY TOTAL DAVINCI SI performed by Micki Cadena MD at [facility] OR [facility] ??? WY MASTECTOMY, PARTIAL Left 11/22/2018 LEFT BREAST LUMPECTOMY WITH NLOC @ 8:30 AM performed by Ita Vazquez MD at [facility] OR Social History Social History ??? Marital status: Spouse name: N/A ??? Number of children: N/A ??? Years of education: N/A Occupational History ??? Not on file. Social History Main Topics ??? Smoking status: Never Smoker ??? Smokeless tobacco: Never Used ??? Alcohol use Yes Comment: rare ??? Drug use: No ??? Sexual activity: Not on file Other Topics Concern ??? Not on file Social History Narrative ??? No narrative on file Family History Problem Relation Age of Onset ??? Breast Cancer Neg Hx ??? Ovarian Cancer Neg Hx Allergies Allergen Reactions ??? Atorvastatin Muscle Pain ??? Codeine Nausea and Vomiting Reaction: Nausea, Current Outpatient Prescriptions Medication Sig Dispense Refill ??? losartan-hydroCHLOROthiazide (HYZAAR) 100-12.5 mg tablet Take 1 Tablet by mouth daily. ??? ferrous sulfate (Iron) 325 mg (65 mg iron) tablet Take 325 mg by mouth daily. ??? HYDROcodone-acetaminophen (NORCO) 5-325 mg tablet Take 1 Tablet by mouth every 4 hours as needed for Pain, Moderate. Max Daily Amount: 6 Tablets 30 Tablet 0 ??? benzonatate (TESSALON PERLE ORAL) Take 100 mg by mouth. ??? methotrexate (RHEUMATREX) 2.5 mg Tablet Take 2.5 mg by mouth every 7 days 6 tabs on . No current facility-administered medications for this visit. [...] or rashes. Psych: No depression or anxiety. 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 Breasts: see HPI PHYSICAL EXAM BP 128/70 Pulse 81 Ht 5' 7 (1.702 m) Wt 86.2 kg (190 lb) SpO2 97% BMI 29.76 kg/m?? ECOG PS = 0 [...] 11:51 AM ANIONGAP 11 07/10/2018 04:05 AM FINAL DIAGNOSIS 09/23/18 Breast, left, core biopsy: - Invasive ductal carcinoma, with the following features: 1. Size: 12 mm. 2. [place] score: 6/9. 3. Lymphvascular invasion: Not identified. 4. Stage: pT1c. - Biomarker results: ER 8/8 (positive), WY 8/8 (positive), Her2 IHC 1+ (negative). - Low to intermediate grade ductal carcinoma in situ, minute focus, with associated calcifications. FINAL DIAGNOSIS A. 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 ?? B. Breast, left, lumpectomy: - Invasive ductal carcinoma, with the following features: 1. Size: 1.3 cm. 2. Donnie score: 6/9. 3. Margins: Invasive carcinoma 3 mm from the posterior margin. 4. Lymphvascular invasion: Not definitively identified. 5. Stage: pT1c snN1mi. 6. Biomarkers: HER2 1+ (ER and WY positive performed previously on [id number]). - Radial scar. - Intraductal papilloma (0.1 [...] found for this or any previous visit. Results for orders placed during the hospital encounter of 06/27/18 CT ABDOMEN PELVIS W CONTRAST Impression IMPRESSION: 1. No CT evidence of metastatic disease in the abdomen or pelvis. 2. Large hiatal hernia with intrathoracic stomach. DICTATION LOCATION: The above dictation was performed at [address] No results found for this or any previous visit. No results found for this or any previous visit. ASSESSMENT and PLAN Ms. Cedillo is a 72 yo woman with [id number] breast cancer, ER+/WY+/HER2-, NS 6. I have discussed with the patient and the family at length about pathophysiology, natural history, prognosis and various treatment options for her breast cancer. I mentioned the fact that treatment of breast cancer goes along two fronts, local and systemic. Local therapy involves surgery followed by XRT if lumpectomy is done. Since she has had lumpectomy done, she will need adjuvant XRT. Dr. John Ag in [place] has completed her radiation. I then talked about systemic treatment of breast cancer as treatment of micrometastatic disease to decrease the chance of recurrence. Since her tumor is strongly ER/WY positive, I have recommended hormonal Rx with oral aromatase inhibitor to start NOW. I reviewed side effects and gave her written information. Bone density needs to be checked this year - I ordered it and she will get it done closer to home. Vitamin D also needs to be checked today. We have previously discussed the use of OncotypeDX to estimate her individual risk of recurrence and her benefit from chemotherapy vs. Hormonal therapy alone.RS=7, 11% recurrence, no benefit to chemo. OTHER ISSUES: H/o endometrial cancer - very early stage, f/u with Dr. Surinder BERNARDO - continue MTX - may need to stop this temporarily if chemo is given Iron deficiency - Getting colonoscopy soon. Consider genetic testing due to breast and [...] Description 03/19/2025 10:45 AM CDT Appointment [facility] [address] [place] [address] Caron Mohan MD [address] [facility] [address] [place] [address] 03/19/2025 11:30 AM CDT Office Visit [facility] Oncology and Hematology [address] [place] [address] Caron Mohan MD [address] [place] [phone] [place] [address] [place] [address] documented as of this encounter Results * XR DEXA BONE DENSITY AXIAL 1 OR MORE SITES (03/11/2019) Anatomical Region Laterality Modality Other Caron Mohan MD DIAGNOSTIC IMAGING O RDERABLES * (ABNORMAL) VITAMIN D 25 HYDROXY (02/10/2019 11:10 AM CDT) VITAMIN D TOTAL (25OH) 20(L) 30 - 100 ng/mL 02/10/2019 7:19 PM CDT [facility] [employer] [facility] Blood Venipuncture / Unknown 02/10/2019 11:10 AM CDT 02/10/2019 11:10 AM CDT Narrative [facility] - 02/10/2019 7:19 PM CDT Interpretive Data Chart: Deficient: 0 - 20 ng/mL Insufficient: 21 - 29 ng/mL Sufficient: 30 - 100 ng/mL Increased Risk of Hypercalciuria: >100 ng/mL Toxic: >150 ng/mL Caron Mohan MD CHEMISTRY ORDERABLES [facility] CLIA# [id number] [address] [facility] [place] [address] documented in this encounter Visit Diagnoses Diagnosis Malignant neoplasm of upper-inner quadrant of left breast in female, estrogen receptor positive- Primary 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 rheumatoid factor Vitamin D deficiency Unspecified vitamin D deficiency Menopausal and perimenopausal disorder Unspecified menopausal and postmenopausal disorder Iron deficiency anemia due to chronic blood loss Iron deficiency anemia secondary to blood loss (chronic) documented in this encounter Care Teams Clay Transporter Relationship Specialty Start Date End Date Francisco Long MD PCP - General Internal Medicine 06/27/18 documented as of this encounter
--- OUTSIDE RECORDS SUMMARY | 2024-11-16 13:28 | XMS_ITS | Encounter Summary ---
Author Organization [facility] Address [address] [place] [address] Care Team Providers Care Car Escort Name Role Phone Francisco Long MD Primary Care Provider Unavailabl e Reason for Visit * Reason Onset Date Comments oncotype 01/07/2019 Encounter Details Date Type Department Care Team (Late st Contact Info) Description 01/07/2019 Patient Outreach [facility] ONCOLOGY AND HEMATOLOGY-[place] [address] [facility] [address] [place] [address] Caron Mohan MD [address] [place], [place] [phone] oncotype Social History Tobacco Use Types Packs/Day Years [...] Telephone Encounter - Pricilla Olsen RN - 01/07/2019 9:03 AM CST Images from the original note were not included. Message Received: Yesterday Message Contents Janna Quiroz RN Horack, Cynthia L, RN ?? Previous Messages ----- Message ----- From: Rosario Garcia RN Sent: 01/06/2019 ?? 2:53 PM To: TAO Hearn Heather Howard called from [facility]. She is requesting a copy of the patient's ONCO type results. Jolene is going to being XRT at [facility], (Dr Ag). Rayna's phone number is [phone]. Fax is [phone]. Thanks, Rosario done TENDER documented in this encounter Plan of Treatment Upcoming Encounters Date Type Department Care Team (Late st Contact Info) Description 03/19/2025 10:45 AM CDT Appointment [facility] [address] [place] [address] Caron Mohan MD [address] [place] [address] 03/19/2025 11:30 AM CDT Office Visit [facility] Oncology and Hematology [address] [place] [address] Caron Mohan MD [address] [place] [address] [place] [address] [facility] [address] [place] [address] documented as of this encounter Visit Diagnoses Not on filedocumented in this encounter Care Teams Car Escort Relationship Specialty Start Date End Date Francisco Long MD PCP - General Internal Medicine 06/27/18 documented as of this encounter
--- OUTSIDE RECORDS SUMMARY | 2024-11-16 13:28 | XMS_ITS | Encounter Summary ---
Author Organization [facility] Address [address] [place] [address] Care Team Providers Care Seal Delivery Vehicle Officer Name Role Phone Francisco Long MD Primary Care Provider Unavailabl e Encounter Details Date Type Department Care Team (Late st Contact Info) Description 12/24/2018 Orders Only [facility] ONCOLOGY AND HEMATOLOGY-[place] [address] [facility] [address] [place] [address] Caron Mohan MD [address] [place] [phone] Social History Tobacco Use Types Packs/Day Years [...] AM CDT Appointment [facility] [address] [address] [place] [address] Caron Mohan MD [address] [place] [address] 03/19/2025 11:30 AM CDT Office Visit [facility] Oncology and Hematology [address] [place] [address] Caron Mohan MD [address] [place] [address] [place] [address] [place] [address] documented as of this encounter Procedures Procedure Name Priority Date/Time Associated Diagnosis Comments MISCELLANEOUS LAB TEST Routine 12/23/2018 documented in this encounter Results * MISCELLANEOUS LAB TEST (12/23/2018) Caron Mohan MD CHEMISTRY [facility]ABLES [facility] documented in this encounter Visit Diagnoses Not on filedocumented in this encounter Care Teams Seal Delivery Vehicle Officer Relationship Specialty Start Date End Date Francisco Long MD PCP - General Internal Medicine 06/27/18 documented as of this encounter
--- OUTSIDE RECORDS SUMMARY | 2024-11-16 13:28 | XMS_ITS | Encounter Summary ---
Author Organization [facility] Address [address] [place] [address] Care Team Providers Care Split And Drum Room Supervisor Name Role Phone Francisco Long MD Primary Care Provider Unavailabl e Reason for Visit * Reason Comments Establish Care breast cancer Encounter Details Date Type Department Care Team (Late st Contact Info) Description 12/11/2018 8:30 AM ACADEMIC HOSPITALIST Office Visit [facility] ONCOLOGY AND HEMATOLOGY-JUSTIN LAQUITA [address] [facility] [address] [place] [address] Caron Mohan MD [address] [place], [place] [id number] Malignant neoplasm of upper-inner quadrant of left breast in female, estrogen receptor positive (Primary Dx); 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 rheumatoid factor; Iron deficiency anemia, unspecified iron deficiency anemia type; History of endometrial cancer; Personal history of DVT (deep vein thrombosis) [...] Sign Reading Time Taken Comments Blood Pressure 148/78 12/11/2018 8:31 AM ACADEMIC HOSPITALIST Pulse 90 12/11/2018 8:31 AM ACADEMIC HOSPITALIST Temperature 36.7 ??C (98 ??F) 12/11/2018 8:31 AM ACADEMIC HOSPITALIST Respiratory Rate - - Oxygen Saturation 95% 12/11/2018 8:31 AM ACADEMIC HOSPITALIST Inhaled Oxygen Concentration - - Weight 85.3 kg (188 lb) 12/11/2018 8:31 AM ACADEMIC HOSPITALIST Height 170.2 cm (5' 7 ) 12/11/2018 8:31 AM ACADEMIC HOSPITALIST Body Mass Index 29.44 12/11/2018 8:31 AM ACADEMIC HOSPITALIST documented in this encounter Progress Notes * Caron Mohan MD - 12/11/2018 8:38 AM CST [facility] Oncology and Hematology Date of Service: 12/11/2018 Patient: Jolene Cedillo : 1945 HPI Ms. [...] [facility] but unable to access results. Patient History Past Medical History: Diagnosis Date [...] ??? 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 AL BX/REMV,LYMPH NODE,DEEP AXILL Left 11/22/2018 LEFT AXILLARY SENTINEL LYMPH NODE BIOPSY WITH NUC MED AT 7:45 AM performed by Ita Vazquez MD at [facility] CC OR ??? AL LAP,LYMPH NODE BX N/A 07/09/2018 PELVIC LYMPH NODE STAGING DAVINCI SI performed by Micki Cadena MD at [facility] OR [facility] ??? AL LAP,RMV ADNEXAL STRUCTURE Bilateral 07/09/2018 SALPINGO-OOPHORECTOMY DAVINCI SI performed by Micki Cadena MD at [facility] OR [facility] ??? AL LAPAROSCOPY W TOT HYSTERECT UTERUS 250 GRAM OR LESS N/A 07/09/2018 HYSTERECTOMY TOTAL DAVINCI SI performed by Micki Cadena MD at [facility] OR [facility] ??? AL MASTECTOMY, PARTIAL Left 11/22/2018 LEFT BREAST LUMPECTOMY WITH NLOC @ 8:30 AM performed by Ita Vazquez MD at [facility] CC OR Social History Social History ??? Marital [...] Outpatient Prescriptions Medication Sig Dispense Refill ??? HYDROcodone-acetaminophen (NORCO) 5-325 mg tablet Take [...] or rashes. Psych: No depression or anxiety. 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 Breasts: see HPI PHYSICAL EXAM BP (!) 148/78 (BP Location: Right arm, Patient Position (BP): Sitting, BP Cuff Size: Adult) Pulse90 Temp 98 ??F (36.7 ??C) Ht 5' 7 (1.702 m) Wt 85.3 kg (188 lb) SpO2 95% BMI 29.44 kg/m?? ECOG PS = 0 [...] changes Left - s/p lumpectomy and SLN with a hematoma/seroma superior to the breast incision which is healing well LABS Lab Results Component Value Date/Time WBC [...] pT1c. - Biomarker results: ER 8/8 (positive), AL 8/8 (positive), Her2 IHC 1+ (negative). - Low to intermediate grade ductal carcinoma in situ, minute focus, with associated calcifications. Results for orders placed or performed during the hospital encounter of 11/22/18 PATHOLOGY Result Value Ref Range CASE REPORT Surgical Pathology Report Case: [id number] Authorizing Provider: Ita Vazquez MD Collected: 11/22/2018 10:15 AM Ordering Location: [facility] OUTPATIENT SURGERY Received: 11/22/2018 10:18 AM [facility] Pathologist: Joaquín Holcomb MD Specimens: A) - Axilla, left, senitinal lymph nodes B) - Breast, left, lumpectomy short stitch superior long stitch lateral clip at deep margin C) - Breast, left, re-excision medial to deep margin stitch at new margin FINAL DIAGNOSIS A. 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 B. Breast, left, lumpectomy: - Invasive ductal carcinoma, with the following features: 1. Size: 1.3 cm. 2. Donnie score: 6/9. 3. Margins: Invasive carcinoma 3 mm from the posterior margin. 4. Lymphvascular invasion: Not definitively identified. 5. Stage: pT1c snN1mi. 6. Biomarkers: HER2 1+ (ER and AL positive performed previously on [id number]). - Radial scar. - Intraductal papilloma (0.1 cm). - Sclerosing adenosis. - Focal fat necrosis and hemosiderin deposition, consistent with biopsy site changes. - Microcalcifications identified, associated with background breast tissue. - Background breast with fibrocystic changes including usual duct hyperplasia, apocrine metaplasia,columnar cell change, and duct ectasia. C. Breast, left, medial to deep margin, reexcision: - Benign breast tissue, negative for carcinoma. SPECIMEN DESCRIPTION (A) Axilla, left, sentinel lymph nodes, collected at 1015; (B) breast, left, lumpectomy, short stitch superior, long stitch lateral, clip at deep margin, collected at 1023; (C) breast, left, re-excision medial to deep margin, stitch at new margin, collected at 1025. OPERATIVE PROCEDURE Left breast lumpectomy with needle localization at 0830 am. Nuclear medicine at 0745, needle localization at 0830. Left axillary sentinel lymph node biopsy with nuclear medicine at 0745 am. CLINICAL DIAGNOSIS Invasive ductal carcinoma of breast, left (C50.912). GROSS DESCRIPTION The specimen is received in three containers, each labeled with the patient's name, Jolene Cedillo. Specimen A is additionally labeled axilla, left, sentinel lymph nodes and consists of 6-g pieces of lobulated adipose tissue with two lymph nodes. Two lymph nodes are present with attached adipose tissue; one measures 2.5 x 2 x 1 cm and the second measures 1.8 x 1.2 x 0.5 cm. Both lymph nodes show focal staining with blue dye. The lymph nodes are serially sectioned and entirely submitted as A1-one lymph node serially sectioned; A2 and A3-second lymph node serially sectioned. The specimenis sectioned and placed in formalin at 1022. Specimen B is additionally labeled breast, left, lumpectomy, short stitch superior, long stitch lateral, clip at deep. Accompanying the specimen is a specimen radiograph that shows a needle localization wire and a biopsy marker. No interpretation is provided. The specimen consists of a single 41-g lumpectomy specimen that is ferguson-yellow to ferguson-white, soft to firm. The specimen is oriented with along lateral, short superior, and a clip at deep margin. A needle localization wire enters the specimen at the medial aspect. The specimen measures 5 cm superior to inferior, 1.8 cm anterior to posterior, and 5 cm lateral to medial. The specimen is inked as anterior-blue, posterior-black, lateral-green, and medial-yellow. The specimen is sectioned superior to inferior into seven levels. The bent tip of the needle localization wire is present at level 4. Levels 3 to 5 show a ferguson-white, firm, stellate mass that measures 1.3 x 1.1 x 1 cm, with adjacent hemorrhagic biopsy cavity which extends to level 6. The mass is present 4 mm from the closest medial margin. The biopsy clip is not seen in theplane of sections. The entire specimen is submitted superior to inferior as B1-superior margin perpendicularly sectioned; B2 to B4-level 2; B5 to B8-level 3; B9 to U09-xukno 4; B13 to E23-jkwvi 5; B17 to T43-bahan 6; B21 and 22-inferior margin perpendicularly sectioned. The specimen is sectioned and placed in formalin at 1045. Specimen C is additionally labeled breast, left, re-excision medial to deep margin, stitch at new margin. The specimen consists of a 7-g, lobulated piece of adipose tissue that measures 4.5 x 3 x 1cm and is oriented with a suture at new margin. The new margin is inked blue. The remainder of the surfaces are inked black. The specimen is serially sectioned to show a ferguson-yellow, lobulated cut surface. A distinct mass-like lesion is not identified. The entire specimen is submitted in cassettes labeled C1 to C6. C1 and C6 contain perpendicular sections. The entire specimen is sectioned and placed in formalin at 1100. AA/sania MICROSCOPIC DESCRIPTION Slides are received labeled [id number] and Jolene Cedillo. The left axillary sentinel lymph nodes show a small focus of metastatic carcinoma in one lymph node, approximately 0.3 mm. Metastatic carcinoma is highlighted by a cytokeratin immunostain. The secondlymph node is negative for carcinoma. Both lymph nodes show extensive fatty replacement. The lumpectomy specimen shows a focus of filtrating carcinoma, characterized by predominantly nestsand cords of moderately atypical epithelial tumor cells (nuclear score 2). Tubule formation comprises just over 10% of the tumor volume (tubule score 2). The mitotic rate is moderately elevated, with11 mitoses in 10 high-power espino (mitotic score 2). Carcinoma closely approximates but does not definitively invade peripheral nerves. Lymph vascular invasion is not identified. Carcinoma comes to 3 mm of the black inked posterior margin, and is >5 mm from all other margins. There is a focus of fat necrosis and hemosiderin deposition consistent with biopsy site, located away from the focus of carcinoma. The background breast shows radial scar, sclerosing adenosis, intraductal papilloma, and fibrocystic changes including usual duct hyperplasia, apocrine metaplasia, duct ectasia, and columnar cell change. Microcalcifications are identified, associated with the background breast tissue. Immunostains for p63 and SMMS show loss of basal cells in the invasive carcinoma; an in situ component is not identified. The reexcision medial to the deep margin shows predominantly fibroadipose tissue with focal breast tissue and is negative for carcinoma. SPECIAL AND IMMUNOPEROXIDASE STAINS Diagnosis: Invasive ductal carcinoma Site: Left breast Block #: B10 Cold Ischemia Time: 22 minutes Duration of Fixation: 55 hours Internal Control: present Test Results HER2 Protein Overexpression (Immunohistochemistry) = 1+ Cases with equivocal staining (2+) will be sent for HER2 testing by FISH and the results reported in an addendum. HER2 membrane staining (Antibody Clone 4B5) is scored on a 0 to 3+ scale in accordance to 2018 CAP/ASCO guidelines. Reference Range HER2 score 0 (Negative) = no expression or incomplete, faint membrane staining and within <10% of tumor cells 1+ (Negative) = incomplete, faint membrane staining and within >10% of tumor cells 2+ (Equivocal) = weak/moderate complete membrane staining within >10% of tumor cells. 3+ (Positive) = complete, intense, circumferential membrane staining in > 10% of tumor cells. * Studies are performed on neutral-buffered formalin-fixed paraffin embedded sections unless otherwise specified. This assay has not been validated on decalcified tissues. Results should be interpreted with caution given the likelihood of false negativity on decalcified tissues. SYNOPTIC REPORT INVASIVE CARCINOMA OF THE BREAST (Breast Invasive - All Specimens) SPECIMEN Procedure: Excision (less than total mastectomy) Specimen Laterality: Left TUMOR Histologic Type: Invasive carcinoma of no special type (ductal, not otherwise specified) Glandular (Acinar) / Tubular Differentiation: Score 2 Nuclear Pleomorphism: Score 2 Mitotic Rate: Score 2 (4-7 mitoses per mm2) Number of Mitoses per 10 High-Power Espino: 11 mitotic figures Diameter of Microscope Field in Millimeters (mm): 0.55 Millimeters (mm) Overall Grade: Grade 2 (scores of 6 or 7) Tumor Size: Greatest dimension of largest invasive focus in Millimeters (mm): 13 Millimeters (mm) Tumor Focality: Single focus of invasive carcinoma Ductal Carcinoma In Situ (DCIS): Not identified Tumor Extent: Accessory Findings: Lymphovascular Invasion: Not identified Dermal Lymphovascular Invasion: No skin present Microcalcifications: Present in non-neoplastic tissue Treatment Effect: No known presurgical therapy MARGINS Invasive Carcinoma Margins: Uninvolved by invasive carcinoma Distance from Closest Margin in Millimeters (mm): 3 Millimeters (mm) Closest Margin: Posterior LYMPH NODES Regional Lymph Nodes: Involved by tumor cells Number of Lymph Nodes with Macrometastases (> 2 mm): 0 Number of Lymph Nodes with Micrometastases (> 0.2 mm to 2 mm and / or > 200 cells): 1 Number of Lymph Nodes with Isolated Tumor Cells (<= 0.2 mm and <= 200 cells): 0 Size of Largest Metastatic Deposit in Millimeters (mm): 0.3 Millimeters (mm) Extranodal Extension: Not identified Number of Lymph Nodes Examined: 2 Number of [place] Nodes Examined: 2 PATHOLOGIC STAGE CLASSIFICATION (pTNM, AJCC 8th Edition) TNM Descriptors: Not applicable Primary Tumor (Invasive Carcinoma) (pT): pT1c Regional Lymph Nodes (pN): Modifier: (sn): Only sentinel node(s) evaluated. Category (pN): pN1mi COMMENT Special stain and/or immunohistochemical results are interpreted with controls that demonstrate appropriate staining reactions. Note on use of immunocytochemistry reagents: This test was developed and its performance characteristic determined by , Department of Laboratory Medicine. It has not been cleared or approved by the U.S. Food and Drug Administration. The FDA has determined that such clearance or approval is not necessary. The test is used for clinical purpose. Itshould not be regarded as investigational or for research. This laboratory is certified to perform high complexity testing. Case types starting with WS, WF, WB and WH are performed by [address], [address]. All other case types are performed by [facility] [address] [facility], [address]. SCANS No results found for this or any previous visit. Results for orders placed during the hospital encounter of 06/27/18 CT ABDOMEN PELVIS W CONTRAST Impression IMPRESSION: 1. No CT evidence of metastatic disease in the abdomen or pelvis. 2. Large hiatal hernia with intrathoracic stomach. DICTATION LOCATION: The above dictation was performed at [facility]. No results found for this or any previous visit. No results found for this or any previous visit. ASSESSMENT and PLAN Ms. Cedillo is a 72 yo woman with [id number] breast cancer, ER+/AL+/HER2-, NS 6. I have discussed with the [...] need adjuvant XRT. Dr. John Ag in [place] has been consulted and she will see him nextweek. I then talked about systemic treatment of breast cancer as treatment of micrometastatic disease to decrease the chance of recurrence. Since her tumor is strongly ER/AL positive, I have recommended hormonal Rx with oral aromatase inhibitor to start after radiation. I reviewed side effects and gave her written information. Bone density needs to be checked this year - she will discuss with PCP. Vitamin D also needs to be checked. We discussed the use of OncotypeDX to estimate her individual risk of recurrence and her benefit from chemotherapy vs. Hormonal therapy alone. Pamphlet reviewed. This test has been ordered. I will call her with results in about 2 weeks. She comes 1.5 hours to get here so would like to avoid an extra trip. If high risk would recommend chemotherapy with TC x 4. This would need to be given prior to radiation. I do not anticipate that she will be high risk, and so I have scheduled her to return after RT to start letrozole. OTHER ISSUES: H/o endometrial cancer - very early stage, f/u with Dr. Surinder BERNARDO - continue MTX - may need to stop this temporarily if chemo is given Iron deficiency - I'm not sure what is the cause of this. She definitely needs colonoscopy, +/- EGD. She is seeing Dr. Long soon about this. If iron levels remain low would try taking iron bid on empty stomach with OJ. IV iron is also an option. Consider genetic testing due to breast and endometrial cancer. TOBACCO COUNSELING She is not a tobacco user. The patient expressed good understanding of the issues discussed, and questions were addressed. Thank you for asking me to assist in the care of your patient. If any further questions or concernsshould arise, please do not hesitate to contact me. Caron Mohan MD EMIC HOSPITALIST documented in this encounter Plan of Treatment Upcoming Encounters Date Type Department Care Team (Late st Contact Info) Description 03/19/2025 10:45 AM CDT Appointment [facility] [address] [place] [id number] Caron Mohan MD [address] [place] [id number] 03/19/2025 11:30 AM CDT Office Visit [facility] Oncology and Hematology Justin Long [address] [address] [place] [phone] Caron Mohan MD [address] [place] [phone] [place] [address] [facility] [address] [place] [address] documented as of this encounter Visit Diagnoses Diagnosis Malignant neoplasm of upper-inner quadrant of left breast in female, estrogen receptor positive- Primary 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 rheumatoid factor Iron deficiency anemia, unspecified iron deficiency anemia type History of endometrial cancer Personal history of malignant neoplasm of other parts of uterus Personal history of DVT (deep vein thrombosis) Personal history of venous thrombosis and embolism documented in this encounter Care Teams Split And Drum Room Supervisor Relationship Specialty Start Date End Date Francisco Long MD PCP - General Internal Medicine 06/27/18 documented as of this encounter
--- OUTSIDE RECORDS SUMMARY | 2024-11-16 13:29 | XMS_ITS | Encounter Summary ---
Author Organization [facility] Address [address] [place] [address] Care Team Providers Care Care Nurse Rn Name Role Phone Francisco Long MD Primary Care Provider Unavailabl e Reason for Visit * Auth/Cert Specialty Diagnoses / Procedures Referred By Halima t Referred To Contact Diagnoses Invasive ductal carcinoma of breast, left Invasive ductal carcinoma of breast, left [C50.912] Procedures MA MASTECTOMY, PARTIAL MA BX/REMV,LYMPH NODE,DEEP AXILL MA INTRAOPERATIVE SENTINEL LYMPH NODE ID W DYE INJECTION CHG LYMPHATICS & LYMPH GLANDS IMAGING Left Breast Lumpectomy W/NLOC [place] [address] [place] [address] Referral ID Status Reason Start Date Expiration Date Visits Re quested Visits Authorized [id number] 10/02/2018 1 1 Encounter Details Date Type Department Care Team (Late st Contact Info) Description 11/22/2018 9:40 AM COMPUTER PROGRAMMER CHIEF - 11/22/2018 11:14 AM COMPUTER PROGRAMMER CHIEF Surgery [facility] JUST[address] LONG [address] [place] [address] [place] [address] [place] [address] LEFT BREAST LUMPECTOMY WITH NLOC @ 8:30 AM Surgery Details Date/Time Status Location OR Service Patient Class Case Class Case Type Trauma Case? 11/22/2018 9:40 AM Posted [facility] CC OR CC OR 02 General Surgery Surgical OP/Extended Care Elective No Panel 1 Procedure LRB Anes Op Region Wound Class Comments LEFT BREAST LUMPECTOMY WITH NLOC @ 8:30 AM Left General Breast Clean-I Nuc Med @ 0745; NL @ 0830 LEFT AXILLARY SENTINEL LYMPH NODE BIOPSY WITH NUC MED AT 7:45 AM Left General Axilla Clean-I Surgeon Surgeon Role Service Panel Ita Vazquez MD Primary General Surgery 1 documented in this encounter Social History [...] Sign Reading Time Taken Comments Blood Pressure 138/70 11/22/2018 11:14 AM COMPUTER PROGRAMMER CHIEF Pulse 75 11/22/2018 11:14 AM COMPUTER PROGRAMMER CHIEF Temperature 36.3 ??C (97.4 ??F) 11/22/2018 10:[address] Respiratory Rate 12 11/22/2018 11:14 AM COMPUTER PROGRAMMER CHIEF Oxygen Saturation 100% 11/22/2018 11:14 AM COMPUTER PROGRAMMER CHIEF Inhaled Oxygen Concentration - - Weight 83 kg (183 lb) 11/22/2018 6:46 AM COMPUTER PROGRAMMER CHIEF Height 170.2 cm (5' 7 ) 11/22/2018 6:46 AM COMPUTER PROGRAMMER CHIEF Body Mass Index 28.66 11/22/2018 6:46 AM COMPUTER PROGRAMMER CHIEF documented in this encounter Discharge Instructions * Discharge Instructions* Ita Vazquez MD - 11/22/2018 11:02 AM COMPUTER PROGRAMMER CHIEF [facility] [address] [place] [address] Post operative instructions: Activity: - Walk around every 2-4 hours to prevent blood clots - No heavy lifting for one week - No driving while taking narcotics or while drain is in - Deep breathing 10x per hour if you had general anesthesia - No strenuous exercise for one week - Resume range of motion as tolerated (don???t force it) Medicines: - May resume pre op medications - Ask your surgeon when to resume aspirin and blood thinners - Tylenol is okay for mild pain - Prescriptions for narcotics will be given after surgery - Avoid alcoholic beverages, drive or make important decisions while taking pain medicines Diet: - Resume a regular diet as tolerated - Encourage fluids to avoid constipation Follow up Care: -Your doctors office will call within 3-4 days of surgery with pathology results and to make post operative appointments. - Results for sentinel lymph nodes will take up to 5 days - You may call the office if you have not heard from us. Special Instructions: - Your dressing over the incision is a skin glue. This will flake off over a week or so - May shower in tomorrow - May need to wear a bra (sports) for support or an JANN wrap - May use ice bag on incision for minor swelling and discomfort - Measure and record drain outputs 3x a day if you have a drain - Urine may be blue if you had a sentinel node biopsy. Don???t be alarmed (It will clear up in a day) - Call office or exchange if fever, redness, swelling, drainage If you have any questions, please call the office at between the hours of 9AM and 5PMMonday through Sunday. After hours for emergencies, you may call this number to be connected to the[facility] service. UTER PROGRAMMER CHIEF documented in this encounter Medications at Time of Discharge Medication Sig Dispensed Refills Start Date End Date methotrexate (RHEUMATREX) 2.5 mg Tablet Take 2.5 mg by mouth every 7 days. 6 tabs on Sunday' losartan-hydroCHLOROthiaz abiel (HYZAAR) 100-12.5 mg tablet Take 1 Tablet by mouth daily. 06/08/2021 documented as of this encounter H&P Notes * Ita Vazquez MD - 11/22/2018 9:28 AM CST PATIENT: Jolene Cedillo : 1945 DATE: 11/22/2018 CHIEF COMPLAINT: left breast cancer HISTORY OF PRESENT ILLNESS: Jolene Cedillo is a 72 y.o. female who presents for left lump/SLN. PMH: Past Medical History: Diagnosis Date ??? [...] ??? 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 MA LAP,LYMPH NODE BX N/A 07/09/2018 PELVIC LYMPH NODE STAGING DAVINCI SI performed by Micki Cadena MD at [facility] OR [facility] ??? MA LAP,RMV ADNEXAL STRUCTURE Bilateral 07/09/2018 SALPINGO-OOPHORECTOMY DAVINCI SI performed by Micki Cadena MD at [facility] OR [facility] ??? MA LAPAROSCOPY W TOT HYSTERECT UTERUS 250 GRAM OR LESS N/A 07/09/2018 HYSTERECTOMY TOTAL DAVINCI SI performed by Micki Cadena MD at [facility] OR [facility] ALLERGY: Allergies Allergen Reactions ??? Atorvastatin Muscle Pain ??? Codeine Nausea and Vomiting Reaction: Nausea, MEDS: Current Facility-Administered Medications Medication Dose Route Frequency Provider Last Rate Last Dose ??? lactated Ringers solution IV Pre-Proc Continuous Ita Vazquez MD 150 mL/hr at 11/22/18 0918 ??? lidocaine PF 2 % (XYLOCAINE MPF) injection 0.3 mL 0.3 mL Infiltration Pre- Proc Once Ita Vazquez MD 0.3 mL at 11/22/18 0657 ??? ceFAZolin in sterile water (ANCEF) 2 gram/20 mL IV Syringe (PREMIX) 2,000 mg 2,000 mg IV Pre-Proc Once Ita Vazquez MD ??? lidocaine PF 1 % (XYLOCAINE MPF) injection 30 mL 30 mL Infiltration ONCE Fortino Coleman MD ??? sodium bicarbonate 4.2 % (0.5 mEq/mL) syringe 2.5 mEq 2.5 mEq See Admin Instructions ONCE Fortino Coleman MD ??? methylene blue (UROLENE BLUE) 1 % (10 mg/mL) injection 50 mg 5 mL See Admin Instructions ONCE Fortino Coleman MD ??? lactated Ringers solution IV Post-Proc Continuous Sharath Mills MD ??? morphine injection 2 mg 2 mg IV Post-Proc q 5 min PRN Sharath Mills MD ??? morphine injection 4 mg 4 mg IV Post-Proc q 5 min PRN Sharath Mills MD ??? morphine injection 5 mg 5 mg IV Post-Proc q 5 min PRN Sharath Mills MD ??? ondansetron (ZOFRAN) 4 mg/2 mL injection 4 mg 4 mg IV Post-Proc Once PRN Sharath Mills MD ??? diphenhydrAMINE (BENADRYL) injection 12.5 mg 12.5 mg IV Post-Proc Once PRN Sharath Mills MD FHX: Family History Problem Relation Age of Onset ??? Breast Cancer Neg Hx ??? Ovarian Cancer Neg Hx SOC: Social History Social History ??? Marital status: [...] History Narrative ??? No narrative on file ROS: Constitutional: Negative for fever, weight loss and malaise/fatigue. Respiratory: Negative for cough. Cardiovascular: Negative for chest pain and leg swelling. Gastrointestinal:. Negative for abdominal pain. Genitourinary: Negative for dysuria. Musculoskeletal: Negative for myalgias and joint pain. Skin: Negative for rash. Neurological: Negative for dizziness and headaches. Psychiatric/Behavioral: Negative for depression Female: OB History Para Term AB Living 0 0 0 0 0 0 SAB TAB Ectopic Multiple Live Births 0 0 0 0 0 Obstetric Comments Age @ onset of menses: 12 The remainder of the review of systems including cardiovascular, pulmonary, GI/, neurologic, and endocrine are negative except as noted above. Immunizations: non-contributory PHYSICAL EXAM: BP (!) 143/71 (BP Location: Left arm, Patient Position (BP): Supine) Pulse 89 Temp 97.8 ??F (36.6 ??C) (Temporal) Resp 14 Ht 5' 7 (1.702 m) Wt 83 kg (183 lb) SpO2 97% BMI 28.66 kg/m?? General: well-developed, well-nourished HEENT: normocephalic/atraumatic. Extra-occular movements are intact. Sclera anicteric. Neck is supple without masses. No thyroid nodules. No lymphadenopathy. Cardiovascular: S1, S2 without murmur. No palpable thrill. 2+ radial pulses. Lungs - clear to auscultation bilaterally. No wheezes. Abdomen: Soft, non-tender. No masses. Extremities: no edema Neurologic: sensory and motor grossly intact. Alert and oriented x 3. Breast: left breast wire IMAGIN09/03/18: Bilateral mammogram with left additional views and ultrasound at [facility]- there is a new 16 mm irregular mass at 9:00 on the left. ??Stable 1.7 cm nodular density in the left subareolar breast.??By ultrasound this measures 1.3 cm. ??Biopsy is recommended? 05/25/17: Bilateral mammogram? PATHOLOGY: 09/23/18 Breast, left, core biopsy: - Invasive ductal??carcinoma, with the following features: ?1. Size: ??12 mm. ?2. Donnie score: 05/04. ?3. Lymphvascular invasion: Not identified. ?4. Stage: pT1c. - Biomarker results: ??ER 8/8 (positive), MA 8/8 (positive), Her2 IHC 1+ (negative). 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 ASSESSMENT AND PLAN: ? Stage T1 N0 cancer of the left breast. For lump/SLN. Ita Vazquez MD, FACS 11/22/2018 9:28 AM UTER PROGRAMMER CHIEF documented in this encounter OR Notes * Operative Report - Ita Vazquez MD - 11/22/2018 10:59 AM CST Patient: Jolene Cedillo : 1945 DATE: 11/22/2018 PREOPERATIVE DIAGNOSIS: Newly diagnosed left breast cancer. POSTOPERATIVE DIAGNOSIS: Newly diagnosed left breast cancer. PROCEDURE: 1. Left needle localized lumpectomy 2. Left sentinel lymph node biopsy with injection of blue dye for identification SURGEON: Ita Vazquez MD ANESTHESIA: General as well as local in the wounds ESTIMATED BLOOD LOSS: Minimal COMPLICATIONS: none SPECIMEN: A- left sentinel lymph nodes B- left lumpectomy C- left re-excision medial to deep margin INDICATION: Jolene Cedillo is a very pleasant 72 y.o. year old female who was recently diagnosed with a left breast cancer. After discussing treatment options she has elected to proceed with lumpectomy and axillary sampling. This will be accompanied by any recommended adjuvant medical and radiation therapy. DESCRIPTION OF PROCEDURE: After informed consent the patient was brought to the operating room and placed in supine position on the operating room table. Thrombo-guards and a warming blanket were placed. After adequate anesthesia, the left breast, chest, axillary area and upper arm were prepped anddraped into the operative field. She had previously gone to nuclear medicine where a radiolabeled colloid had been injected into the breast. At this time 5 ml of isosulfan blue dye was injected into the subareolar plexus.The breast was then gently massaged for 5 minutes. The gamma probe was then used to identify an area of increased signal activity in the axilla. An incision was then made at the i nferior border of the axillary hair line. The fascia was then opened up. A blue lymphatic channel was identified and followed down to a blue, radioactive lymph node. This was removed by clipping and transecting lymphatic and vascular channels. The procedure was repeated until the background count was less than 10% of the hottest node. The axilla was then checked for palpably abnormal lymph nodes.These were sent for final pathology. The wound was irrigated and checked for hemostasis. The incision was then closed with some interrupted 4-0 biosyns and a running subcuticular stitch. Attention was then turned to the breast. The lesion had been previously localized with a wire. Thisentered in the upper inner quadrant. An incision was made in the lines of the skin above the areola.. A skin flap was then elevated until the wire could be grasped and brought into the wound. The wire was followed down and a margin of tissue surrounding the thickened and end of the wire was removed. This was oriented and sent for specimen mammogram. The lesion and the previously placed biopsy clip was noted to be within the specimen. I re- excised the medial to deep margin, near the wire entry site. This was oriented and sent for final pathology. The wound was then irrigated and checked for hem ostasis. After adequate hemostasis clipes were placed in the lumpectomy bed. The tissue around the lumpectomy cavity was mobilzied off the chest wall. The deep tissue was closed with a running 3-0 Maxon. The incision was closed with interrupted 4-0 biosyns and a running 4-0 subcuticular stitch. Skin glue was applied to both incisions. Needle and sponge counts were correct x 2. Overall she tolerated the procedure well and was sent tothe recovery room in stable condition. Should the sentinel lymph nodes prove to have metastatic disease on final pathology, she will need to return for completion axillary lymph node dissection. Alternatively, should the margins be involved or too close on final pathology she will need to return for re-excision. Signed: Ita Vazquez MD 11/22/2018, 10:59 AM UTER PROGRAMMER CHIEF documented in this encounter Miscellaneous Notes * Treatment Plan - Karol George, [facility] - 11/22/2018 7:52 AM CST IMAGING SERVICES- NUCLEAR MEDICINE MEDICATION and FLUSH PROTOCOL [facility] ORDERS ARE ENTERED ???PER PROTOCOL?? Enter the protocol in the patient???s electronic health record using smartphrase: .imagingnucmedicineprotocol Communication Orders: o For ordered imaging procedures requiring intravenous access : ??? Initiate a peripheral IV, if not already in place, and discontinue IV prior to discharge (if outpatient). ??? Enter order if needed: Insert Peripheral IV Medication Orders: o Local Anesthetic for use to initiate IV ADULT ??? Lidocaine 4% (L.M.X.4) applied topically ONE TIME prior to IV catheter insertion PRN (L.M.X.4 %should be applied 15 minutes prior to procedure) PEDIATRIC ??? Lidocaine 4% (L.M.X.4) applied topically ONE TIME prior to IV catheter insertion PRN (apply 15 minutes prior to procedure) ??? Sucrose 24%(Tootsweet; Sweet-Ease) oral solution 0.2 mL oral (apply to tongue on pacifier or clean, gloved finger), ONE TIME 2 minutes prior to painful procedure. May repeat dose x1 PRN to complete procedure. o Sodium chloride 0.9% (normal saline) flush 10 mLs PRN for saline lock or medication administration. o For respiratory distress, initiate oxygen and/or increase O2 to maintain saturation greater than 90% Procedure Specific Medications: Adult Procedures & Dosages: o Note: Radiopharmaceuticals dosages with a range are determined by special education associate calibration PROCEDURE DOSAGE Bone Marrow Imaging In-111 Chloride (Indium-111 Chloride), Administer 2mCi, IV, ONE TIME. OR Vj07q-Okcemm Colloid (Edbvjokwjf55w-pztfex colloid), Administer 8mCi Tc99m- sulfur colloid, IV, ONE TIME. Bone Pain Therapy - Quadramet Sm-153 (Samarium-153), Administer 1mCi/kg, IV, ONE TIME. Bone Pain Therapy - Xofigo Ra-223 Xofigo, Administer 1.49uCi/kg, IV, ONE TIME. AND Administer 5 mL sodium chloride, IV, repeated up to 5 times for a total of 30mL. Bone Scan Imaging (Whole Body, Limited, 3-Phase, or SPECT) Yn05s-XCG (Xoomimbnwc91d-qokirelsf diphosphonate), Administer 25mCi, IV, ONE TIME. OR Jg07f-MDN (Lxsbdqieai10z-owuaujfaywnxrvcp diphosphonate), Administer 25mCi, IV, ONE TIME. Brain Imaging Kb52t-UJCL (Kboujsipis80h-tlteypemiw-ntmkxrmw-uklakcbszli), Administer 20mCi, IV, ONE TIME. Brain SPECT Imaging By01x-SIJT (Tqnisreyha92b-ehyiytywjv-phsygknm-xcxettxvdyr), Administer 30mCi, IV, ONE TIME. OR Xh83r-IRCKE (Ceretec) (Dnrekcuvuk03g-ykbgxfuoetyunzjtumf amine oxime), Administer 20mCi, IV, ONE TIME. OR Tl-201 (Thallium Chloride-201), Administer 6mCi, IV, ONE TIME. Cerebral Flow Imaging Qi54k-GJBH (Ujnvygaynz74b-qbolydjxgt-cbliqbhs-azkoxpkgsrq), Administer 25mCi,IV, ONE TIME. Cisternogram Imaging In-111 DTPA (Indium-111 nelsitpxkh-pybqaqnu-xkukzbrqokw), Neuroradiologist to administer 500uCi, Intrathecally, ONE TIME. Cystogram Imaging Tc-99m Pertechnetate (Ihcgniklex89g-qizztzjjgdxyu) Administer 1mCi Hl49q-wpjusvpcpzqpt, intra-mcguire catheter, ONE TIME AND 1000ml NS, intra-mcguire catheter, ONE TIME. DaTscan Imaging I-123 Ioflupane (Iodine-123 ioflupane), Administer 5mCi, IV, ONE TIME. AND Administer SSKI (Potassium Iodide) drops, 130mg, Orally, ONE TIME one hour prior to radiopharmaceutical injection. Diuretic Renal Imaging Ri60g-YVRC (Liyjtqlfod07k-qlyxhosqrc-fndhfkrn-xrisrdgetjn), Administer 5mCi,IV, ONE TIME. AND Administer Lasix (furosemide), 1mg/kg, IV push over 2 minutes, ONE TIME. Maximum dose of 40mg. OR Ff85r-EVW8 (Nbybqoadue40e-tlcvxvvqfotwdjipsmutaax), Administer 5mCi, IV, ONE TIME. AND Administer Lasix (furosemide), 1mg/kg, IV push over 2 minutes, ONE TIME. Maximum dose of 40mg. Diverticulum/Meckel's Imaging Tc-99m Pertechnetate (Lpmeqceehp76r- pertechnetate), Administer 15mCi,IV, ONE TIME. Esophageal Reflux Imaging Mm26g-Ioflsp Colloid (Pxruexfcbj58i-bhcwfh colloid), Administer 1mCi in 1oz whole milk or 1oz orange juice. Follow with additional 7oz whole milk or 7 oz orange juice, Orally, ONE TIME. Ga-67 Citrate - Cancer Imaging Ga-67 Citrate (Gallium-67 Citrate), Administer 7mCi, IV, ONE TIME. Ga-67 Citrate - Lymphoma SPECT Imaging Ga-67 Citrate (Gallium-67 Citrate), Administer 10mCi, IV, ONE TIME. Ga-67 Citrate - Whole Body Imaging Ga-67 Citrate (Gallium-67 Citrate), Administer 5mCi, IV, ONE TIME. Gastric Empty Imaging - Solid Meal Dj71h-Burdlz Colloid (Qstuvaykwl86s-trxqes colloid), Administer 500uCi in 4 oz egg beaters or in 1 package of cooked instant oatmeal, Orally, ONE TIME. Gastric Empty Imaging - Liquid Meal Gc37t-Oepnyz Colloid (Mamztvafkj53n-xwiwoe colloid), Pflstbvbrc673kVx in 300mL whole milk, Orally, ONE TIME. GFR Imaging Ns77i-NAIF (Qwbqrbtchd57z-ggswzfpwls-zjlwiyot-cqkmmuavjsu), Administer 3mCi, IV, ONE TIME. GI Bleed Imaging Tc-99m Pertechnetate (Tldnnqbocd22o-knzqxzummtoeo), Administer 22mCi heparanized RBCs, IV, ONE TIME. Hemangioma Imaging NaPYP (sodium pyrophosphate) AND Tc-99m Pertechnetate (Wikpncmiyi80z-iwhyqomqeccma), Administer 6mg PYP, IV, ONE TIME. AND Administer 20mCi Bh13e-ltntsydhxhjbz, IV, ONE TIME. OR Tc-99m Pertechnetate (Jannyiwida50j-rqnbebqugfhjb), Administer 22mCi heparanized RBCs, IV, ONE TIME. Hepatic Artery Perfusion Imaging TC-99m MAA (Falpcsjjdl88u-hkcgopgjyqzscwn albumin), InterventionalRadiologist to administer 3 mCi in three divided doses of 1 mCi each, intra-arterial via catheter, ONE TIME. Hepatobiliary Scan Imaging Tc-99m Mebrofenin (Ycjknhxnac98y-opvjvhwmud), Administer 5 mCi IV, ONE TIME *For inpatients only, if bilirubin >5mg/dL, Administer 8 mCi IV, ONE TIME *For inpatients only, if bilirubin > 8mg/dL, consult nuclear medicine physician prior to administering radiopharmaceutical Hepatobiliary Scan with Ejection Fraction Imaging Tc-99m Mebrofenin (Uvmhknsaqi79v-busndpxksm), Administer 5 mCi IV, ONE TIME. *For inpatients only, if bilirubin >5mg/dL, Administer 8 mCi IV, ONE TIME *For inpatients only, if bilirubin > 8mg/dL, consult nuclear medicine physician prior to administering radiopharmaceutical AND For immediate use - Sincalide (Kinevac) 0.02 mcg/kg IV, ONE TIME, diluted with NS to a total infused volume of 30 mLs. Infuse via an infusion device over 30 minutes. Hepatobiliary Scan with Pre-Treatment Imaging Tc-99m Mebrofenin (Bxvsowjivr17e- mebrofenin), Administer 5 mCi IV, ONE TIME. *For inpatients only, if bilirubin >5mg/dL, Administer 8 mCi IV, ONE TIME *For inpatients only, if bilirubin > 8mg/dL, consult nuclear medicine physician prior to administering radiopharmaceutical AND For immediate use - Sincalide (Kinevac) 0.01 mcg/kg IV, ONE TIME, diluted with NS to a total infused volume of 5 mLs, IV push over 5 minutes. Hot PYP Bone Imaging Qc05q-QeGAQ (Yjofqllhjs52w-zjmuhm pyrophosphate), Administer 15mCi, IV, ONE TIME. Hot PYP Cardiac Imaging Do02m-BpESJ (Vlgksenbhm90l-renqop pyrophosphate), Administer 15mCi, IV, ONETIME. Hot PYP Muscle Imaging Vf65g-WkVDJ (Padqnejoec42j-sbflxa pyrophosphate), Administer 20mCi, IV, ONE TIME. In-111 WBC Imaging In-111 Oxine (Indium-111 Oxine), Administer at least 400uCi, up to 800uCi, heparanized WBC, IV, ONE TIME. Lacrimal Imaging Yk41y-Zyfxut Colloid (Porfxqkthn93r-pcrqcv colloid), Administer 2 drops per eye sf945sGh/drop, Droplet, ONE TIME. Liver Imaging Zw15w-Lkuykd Colloid (Diwzbldmqb37n-rmbsoy colloid), Administer 6mCi, IV, ONE TIME. Lung Perfusion - Obese Patient Imaging Tc-99m MAA (Ybmtlknrwj01d-hliddkebeeypses albumin), Administer 5mCi for patients > 35BMI, IV, ONE TIME. Lung Perfusion - Obese Patient Imaging Tc-99m MAA (Kltaskjvse78s- macroaggregated albumin),Administer 3mCi for patients > 35BMI, IV, ONE TIME. Lung Perfusion Imaging Tc-99m MAA (Epoeqrfdkh80p-uaiiwdeodmztika albumin), Administer 4mCi, IV, ONETIME. Lung Perfusion - Patient Imaging Tc-99m MAA (Oetoholbqk63j- macroaggregated albumin), Administer 2mCi for patients , IV, ONE TIME. Lung Ventilation Imaging Xe-133 (Xenon-133), Administer at least 10 mCi, up to 30 mCi, inhalation, ONE TIME. Lymphoscintigraphy - Breast Cancer, Next Day Surgery Rl25o-Yhlzdvzcaw (Qcwyyyrhbz10h-pmpkxqrdad), Administer 2mCi in 2 divided doses of 1mCi each, intradermal, ONE TIME. AND Lidocaine 4% (L.M.X.4) applied 30 minutes prior to injections, TOPICAL, ONE TIME PRN. Lymphoscintigraphy - Breast Cancer, Same Day Surgery Fc38s-Pwkgjtklya (Lctzbjpnhn97p-qtjnynziov), Administer 500uCi in 2 divided doses of 250uCi each, intradermal, ONE TIME. AND Lidocaine 4% (L.M.X.4) applied 30 minutes prior to injections, TOPICAL, ONE TIME PRN. Lymphoscintigraphy - Malignant Melanoma, Next Day Surgery Ch89k-Ulcvjouexr (Ykibmjewed15j-grgeqchpti), Administer 2mCi in 4 divided doses of 0.5mCi each, intradermal, ONE TIME. AND Lidocaine 4% (L.M.X.4) applied 30 minutes prior to injections, TOPICAL, ONE TIME PRN. Lymphoscintigraphy - Malignant Melanoma, Same Day Surgery Rw59l-Copucivfuh (Tebpkjurch23c-uuvtgnyuze), Administer 500uCi in 4 divided doses of 125uCi each, intradermal, ONE TIME. AND Lidocaine 4% (L.M.X.4) applied 30 minutes prior to injections, TOPICAL, ONE TIME PRN. Lymphoscintigraphy - Malignant Melanoma, Small Body Area, Next Day Surgery Dz79e-Xxvjosrqql (Kxjnjbnwcq77d-vfqcdfduzl), Administer 2mCi in 2 divided doses of 1mCi each, intradermal, ONE TIME. AND Lidocaine 4% (L.M.X.4) applied 30 minutes prior to injections, TOPICAL, ONE TIME PRN. Lymphoscintigraphy - Malignant Melanoma, Small Body Area, Same Day Surgery Fc42f-Jilxwgivcw (Znwvuztwoh85o-fblyxxkueq), Administer 500uCi in 2 divided doses of 250uCi each, intradermal, ONE TIME. AND Lidocaine 4% (L.M.X.4) applied 30 minutes prior to injections, TOPICAL, ONE TIME PRN. MIBG Imaging I-123 MIBG (Iodine-123 metaiodobenzylguandidine), Administer 10mCi, IV, ONE TIME. Microsphere Mapping Tc-99m MAA (Eyodfijozt65p-hfjcoqqwtrbhyjt albumin), Interventional Radiologist to administer 4 mCi in two divided doses of 2 mCi each, intra-arterial via catheter, ONE TIME. MUGA/RVG Imaging Tc-99m Pertechnetate (Bwgkyzzppf77a-rozzakoujcaii), Administer 22mCi heparanized RBCs, IV, ONE TIME. Myocardial Dual Isotope Imaging Tl-201 (Thallium Chloride-201) AND Nb20f-Plmlrik (Aemoinznzt84u-snuzcdg), Administer 3mCi Tl-201for resting images, IV, ONE TIME AND Administer 8mCi Yc32p-jybwfjz for stress images, IV, ONE TIME. Myocardial Planar Imaging Yv23j-Ajvehmd (Secobpuhpk28n-Pbakluj), Administer 30mCi, IV, ONE TIME lisa images, ONE TIME for stress images. Myocardial Rest Imaging - SPECT Imaging Tl-201 (Thallium Chloride-201), Administer 4mCi, IV, ONE TIME. OR Rv15a-Troqrjo (Dvhfzpredf14n-Urqgwvp), Administer 4mCi for patients <180 lbs, IV, ONE TIME. OR Bd89y-Awvpoxf (Zgaalpjepo19o-Qyjcpfy), Administer 5mCi for patients 181-240 lbs, IV, ONE TIME. OR Hx33r-Oqdlwgf (Tstvhtatup88o-Zixpkdv), Administer 6mCi for female patients 241- 265 lbs, IV, ONE TIME. OR Me22t-Lsjqzxe (Vgxulxdqqm07g-Xcrkhjz), Administer 6mCi for male patients 241-330 lbs, IV, ONE TIME. OR Nx87w-Jpbuosq (Hlolzsmcfm03n-Iyufrkw), Administer 8mCi for female patients 266- 399 lbs, IV, ONE TIME. OR Sv91p-Hoinlof (Htknwmfkky34m-Snyrthz), Administer 8mCi for male patients 331-299 lbs, IV, ONE TIME. Myocardial Stress - SPECT Imaging Gv98g-Mgooxxv (Bzjakevjyq51z-Pguxxlc), Administer 12mCi for patients <180 lbs, IV, ONE TIME. OR Zc63q-Zlodncw (Cutrkpwgmg45j-Mqhypry), Administer 15mCi for patients 181-240 lbs, IV, ONE TIME. OR Qe60a-Sipdnck (Txcmhmzebi69o-Wdpvrui), Administer 18mCi for female patients 241- 265 lbs, IV, ONE TIME. OR Cq03z-Zufjrrf (Xvjrkproms52w-Pvmjgdh), Administer 18mCi for male patients 241- 330 lbs, IV, ONE TIME. OR Pw06q-Sqahuut (Jmuqayyeqt99p-Wennxqc), Administer 24mCi for female patients 266- 399 lbs, IV, ONE TIME. OR Th80d-Uhvfrhh (Egtflogeuw37f-Ushcwbz), Administer 24mCi for male patients 331- 299 lbs, IV, ONE TIME. Myocardial Thallium Stress - Planar Imaging Tl-201 (Thallium Chloride-201), Administer 3mCi IV, ONETIME. Myocardial Viability Imaging Tl-201 (Thallium Chloride-201), Administer 3mCi, IV, ONE TIME. AND Administer 1mCi, IV, ONE TIME 3.5 hours post rest injection. Octreoscan - Planar Imaging In-111 Pentetreotide (Indium-111 Pentetreotide), Administer 3mCi, IV, ONE TIME. Octreoscan - SPECT Imaging In-111 Pentetreotide (Indium-111 Pentetreotide), Administer 6mCi, IV, ONE TIME. Parathyroid Imaging Rk69e-Bftephvzg (Yciqpryyhk20c-frehhqvwi), Administer 20mCi, IV, ONE TIME. PET/CT Axumin F-18 Axumin (Yfnhtsii73-uezyrwmeofjl), Administer 10mCi, IV, ONE TIME. PET/CT Bone Scan F18-NaF (Iemawhiv08-rmgqhm fluoride), Administer 0.11mCi/kg with at least 8mCi, upto 14mCi, IV, ONE TIME. PET/CT Brain Imaging F18-FDG (Qedfpewa49-gkghnmdpnlybmczhm), Administer 0.11mCi/kg with at least 8mCi, up to 14mCi, IV, ONE TIME. PET/CT Dotatate Imaging Ga-68 Dotatate (Gallium-68 Dotatate), Administer 5.4mCi, IV, ONE TIME. PET/CT Limited, Standard, or Whole-Body Oncology Imaging F18-FDG (Lhotnmfe55- flurodeoxyglucose), Administer 0.11mCi/kg with at least 8mCi, up to 14mCi, IV, ONE TIME. PET/CT Myocardial Scan F18-FDG (Fynbihud96-nditdaholzazjpvzn), Administer 0.11mCi/kg with at least 8mCi, up to 14mCi, IV, ONE TIME. Post GFR Imaging Cj87s-RBJC (Uhirlznzpp72a-hxheenfnpi-sawvqxiv-syomoejzhbo), Administer 12mCi, IV, ONE TIME. OR Vf79c-TJC5 (Plfssmbgzl56u-ibvlxrjpigipkriehakvkhd), Administer 5mCi, IV, ONE TIME. PY Breath Test C-14 Urea (Carbon-14 Urea), Administer 1 uCi, Orally, ONE TIME. Renal Cortical Imaging Wh00w-XMBU (Crfeenwypd23k-lmobuwpjszqojlrxpe acid), Administer 5mCi, IV, ONETIME. Renal Perfusion Imaging Mp31x-LPWM (Tvxcckngwf36z-tgnnwozovz-jzcslkst-lmauombwqac), Administer 15mCi, IV, ONE TIME. OR Gg01d-UTL7 (Sznirhvbcj42g-evtciarltcprfvfxixsowcl), Administer 5mCi, IV, ONE TIME. Renogram Imaging Ay01r-WTID (Gdhtregkbc57o-xhjrwwuvzy-vhanppjm-oydnxhnjduf), Administer 5mCi, IV, ONE TIME. OR Gj55s-HKA0 (Uitednflbk10j-bcxhgpikisxfrlurpxftmpc), Administer 5mCi, IV, ONE TIME. Renogram with Flow Imaging Cz28z-ZDEO (Ceabupmica65h-wucmlcfvzq-dghupldm-dksafkjxfis), Administer 5mCi, IV, ONE TIME. OR Pq07d-MWD5 (Mhjbobhnmz40g-npavduojhcfhqjzwlbmrlxl), Administer 5mCi, IV, ONE TIME. Salivary Imaging Tc-99m Pertechnetate (Oxjxnczbdp80r-dvjavwxtkcgzc), Administer 5mCi, Orally, ONE TIME. Shunt Patency Imaging Sg59r-YSRQ (Xorqfxelqi52s-avlkbwcbrg-mhungles-hadvhrbrnio), Neuroradiologist to administer 500uCi, intra-shunt reservoir, ONE TIME. Substernal Thyroid Imaging I-131 Na Iodide (Iodide-131 Na Iodide), Administer 100 uCi, Orally, ONE TIME. To44p-HZJ Imaging Zx35x-Ofhhniu (Lihwzijlyp06d-Lgwzors), Administer at least 15mCi, up to 20mCi, heparanized WBC, IV, ONE TIME. Testicular Imaging Tc-99m Pertechnetate (Wtvlipeaxa64f-frrimqazozzcd), Administer 15mCi, IV, ONE TIME. Thallium Whole Body Scan Imaging Tl-201 (Thallium Chloride-201), Administer 3mCi, IV, ONE TIME. Thyrogen Injection Thyrogen (thyrotopin natividad), Administer 0.9mg, deep IM, every 24 hours for 2 doses. Thyroid Imaging Tc-99m Pertechnetate (Cpkwcowyqn08i-jjiwunlfsthyq), Administer 5mCi, IV, ONE TIME. Thyroid Scan/Uptake I-123 Na Iodide (Iodide-123 Na Iodide), Administer at least 200 uCi, up to 400 uCi, Orally, ONE TIME. Thyroid Uptake I-131 Na Iodide (Iodide-131 Na Iodide), Administer at least 5 uCi, up to 25 uCi, Orally, ONE TIME. Vasotec/Enalaprilat Renal Imaging Ca92w-PYGJ (Gjfeapxlmg47a-nnacaxhgqj-toiciuid-gnhedfrwcni), Administer 5mCi, IV, ONE TIME. AND Administer Enalaprilat (Vasotec) 0.04mg/kg with a maximum dose of 2.5mg. Dilute to 5mL total volumewith normal saline and infuse via infusion device over 5 minutes. OR Sd26c-HSY6 (Awiwgtdhfp06w-iojptnlrgmihshvynraixhf), Administer 5mCi, IV, ONE TIME. AND Administer Enalaprilat (Vasotec) 0.04mg/kg with a maximum dose of 2.5mg. Dilute to 5mL total volumewith normal saline and infuse via infusion device over 5 minutes. Venography Imaging NaPYP (sodium pyrophosphate) AND Tc-99m Pertechnetate (Exmzoxohvj51z-uiuiqtgpwynxh), Administer 6mg NaPYP, IV, ONE TIME AND Administer 15mCi Xk95g-oiiuslrekuyhw, IV, ONE TIME. Whole Body I-131 Imaging I-131 Na Iodide (Iodide-131 Na Iodide), Administer 3 mCi, Orally, ONE TIME. Pediatric Procedures & Dosages: o Note: Radiopharmaceuticals dosages with a range are determined by special education associate calibration PROCEDURE DOSAGE Bone Scan Imaging (Whole Body, Limited, 3-Phase, or SPECT) Bx36q-ZAS (Onrygzhvnk15y-ciulmurmp diphosphonate), Administer 0.25mCi/kg with at least 1mCi, up to 20mCi, IV, ONE TIME. Brain Imaging Oo63q-LZDI (Ipwwcgdipg26q-wtqcmaxzug-qfxkifil-mtacnqpkxkf), Administer 0.8mCi/kg with at least 5mCi, up to 20mCi, IV, ONE TIME. Cisternogram Imaging In-111 DTPA (Indium-111 jhswxxyfoj-qdanqznk-vsfvseugkma), Neuroradiologist to administer 4uCi/kg with at least 50uCi, up to 300uCi, Intrathecally, ONE TIME. Cystogram Imaging Tc-99m Pertechnetate (Lmxfklmruw53s-chxewktomgmul) Administer 1mCi, intra-mcguire catheter, ONE TIME AND Administer 500ml-1000ml NS, intra-mcguire catheter, ONE TIME. Diuretic Renal Imaging Fe24b-YMSC (Itzqrjngsu57v-qjlwkyxkcu-uvsdirtg-egbsobburxy), Administer 0.2mCi/kg with at least 2.5mCi, up jx15iMo , IV, ONE TIME. AND Administer Lasix (furosemide), 1mg/kg, up to 40mg, IV push over 2 minutes, ONE TIME. OR Uj04y-IDB1 (Bfxbaxjqcf02y-ucztnfpjlknmqabrkcqhvqv), Administer 0.1mCi/kg with at least 1mCi, up to 5mCi, IV, ONE TIME. AND Administer Lasix (furosemide), 1mg/kg, up to 40mg, IV push over 2 minutes, ONE TIME. Diverticulum/Meckel's Imaging Tc-99m Pertechnetate (Yaeguqssoj81e- pertechnetate), Administer 0.05mCi/kg with at least 2.5mCi, up to 15mCi, IV, ONE TIME. Esophageal Reflux Imaging - <1yoa Wi17l-Hfqmne Colloid (Jezameltgc98h-luuwza colloid), Administer 0.1mCi for patients <3.5lbs, Orally, ONE TIME. OR Administer 0.2mCi for patients 3.5-6.5lbs, Orally, ONE TIME. OR Administer 0.3mCi for patients >6.5lbs, Orally, ONE TIME. *For all administrations, mix half of formula or breast milk feeding amount with radiopharmaceutical. Follow with remainder of feeding amount. Esophageal Reflux Imaging - >1yoa Ji72w-Qbuyqm Colloid (Ybeyfysqpd11x-gfujny colloid), Administer 0.5mCi in 1 oz whole milk, Orally, ONE TIME. Follow with 7 oz whole milk. Ga-67 Citrate - Infection Imaging Ga-67 Citrate (Gallium-67 Citrate), Administer 0.055mCi/kg with at least 0.5mCi, up to 5.5mCi, IV, ONE TIME. Ga-67 Citrate - Malignancy Imaging Ga-67 Citrate (Gallium-67 Citrate), Administer 0.110mCi/kg with at least 0.5mCi, up to 8mCi, IV, ONE TIME. Ga-67 Citrate - Whole Body Imaging Ga-67 Citrate (Gallium-67 Citrate), Administer 0.05mCi/kg with at least 0.25mCi, up to 5mCi, IV, ONE TIME. Gastric Empty Imaging - Liquid Meal Yu45q-Rtshth Colloid (Hwokfettxl48y-vjvzer colloid), Administer0.5mCi in 300mL whole milk or formula, Orally, ONE TIME. Gastric Empty Imaging - Solid Meal Ag71g-Ixqyrh Colloid (Yjsywfdawt69p-yqtjiz colloid), Administer 500uCi in 4 oz egg beaters or in 1 package of cooked instant oatmeal, Orally, ONE TIME. GI Bleed Imaging Tc-99m Pertechnetate (Aiixshxshj83r-zdrztsbfftpdk), Administer 0.2mCi heparanized RBCs with at least 1mCi, up to 20mCi, IV, ONE TIME. Hemangioma Imaging Tc-99m Pertechnetate (Vrudwrjbyh20p-upuziolmqgmyg), Administer 0.2mCi heparanized RBCs with at least 1mCi, up to 20mCi, IV, ONE TIME. Hepatobiliary Scan Imaging Tc-99m Mebrofenin (Qtuckiihwj96v-bwpbvirmkk), Administer .05mCi/kg with a at least 1mCi, up to 5mCi IV, ONE TIME Hepatobiliary Scan with Ejection Fraction Imaging Tc-99m Mebrofenin (Mmlfwcmpqs05e-jvuirizkwy), Administer .05mCi/kg with a at least 1mCi, up to 5mCi IV, ONE TIME AND For immediate use - Sincalide (Kinevac) 0.02 mcg/kg IV, ONE TIME, diluted with NS to a total infused volume of 30 mLs. Infuse via an infusion device over 30 minutes. Hepatobiliary Scan with Pre-Treatment Imaging Tc-99m Mebrofenin (Swcolouuun07f- mebrofenin), Administer 0.05mCi/kg with a at least 1mCi, up to 5mCi IV, ONE TIME AND For immediate use - Sincalide (Kinevac) 0.01 mcg/kg IV, ONE TIME, diluted with NS to a total infused volume of 5 mLs., IV push over 5 minutes. Hot PYP Bone Imaging Ic93q-DkJKC (Iymnbiwowo63t-ybfewh pyrophosphate), Administer 0.6mCi/kg, with at least 2.5mCi, up to 20mCi IV, ONE TIME. Hot PYP Cardiac Imaging Ph26n-GcFDH (Cthhhovopv41i-xmpxuz pyrophosphate), Administer 0.6mCi/kg, with at least 2.5mCi, up to 20mCi IV, ONE TIME. In-111 WBC Imaging In-111 Oxine (Indium-111 Oxine), Administer 20uCi/kg with at least 50uCi, up to 300uCi, heparanized WBC, IV, ONE TIME. Liver/Spleen Imaging Jm06j-Znxypn Colloid (Cycogzqwqi00z-tvxfjz colloid), Administer 0.05mCi/kg with at least 0.4mCi, up to 3mCi, IV, ONE TIME. Lung Perfusion Imaging Tc-99m MAA (Ivlpzpcplf39l-gthjstzeouchobq albumin), Administer 0.03mCi/kg, with at least 0.4mCi, up to 3mCi IV, ONE TIME. Lung Ventilation Imaging Xe-133 (Xenon-133), Administer at least 4 mCi, up to 7 mCi, inhalation, ONE TIME. MIBG Imaging I-123 MIBG (Iodine-123 metaiodobenzylguandidine), Administer 0.14mCi/kg with at least 2mCi, up to 10mCi, IV, ONE TIME AND Administer SSKI (Potassium Iodide) drops 1 hour prior to radiopharmaceutical injection. ??? * to 1 month: 16mg, Orally, ONE TIME. ??? * 1 month to 3 years of age: 32mg, Orally, ONE TIME. ??? * Greater than 3 years to 18 years of age: 65mg, Orally, ONE TIME. MUGA/RVG Imaging Tc-99m Pertechnetate (Tcupazkmqn48f-aexneluhexhqg), Administer 0.2mCi/kg heparanized RBCs with at least 1mCi, up to 20mCi, IV, ONE TIME. Myocardial Rest Imaging - SPECT Imaging Sv08n-Fajwmqc (Jfjtbecfir92x-Fjpyzup), Administer at least 5.18mCi, up to 6.08mCi, IV, ONE TIME. Consult authorized user prior to administration. Dosage based on Trujillo's Rule (age+1/age+7)*8 Myocardial Stress Imaging - SPECT Imaging Uz69i-Svhwzjo (Sfyexluopz86a-Gazmgqy), Administer at least 15.5mCi, up to 18.24mCi, IV, ONE TIME. Consult authorized user prior to administration. Dosage based on Trujillo's Rule (age+1/age+7)*24 Myocardial Viability Imaging Tl-201 (Thallium Chloride-201), Administer .035mCi/kg, at least 0.25mCi, up to 2mCi, IV, ONE TIME. Octreoscan - Planar Imaging In-111 Pentetreotide (Indium-111 Pentetreotide), Administer 0.04mCi/kg with at least 0.5mCi, up to 6mCi, IV, ONE TIME. Octreoscan - SPECT Imaging In-111 Pentetreotide (Indium-111 Pentetreotide), Administer 0.08mCi/kg with at least 0.5mCi, up to 6mCi, IV, ONE TIME. Parathyroid Imaging Ro83i-Ygdrrbxxi (Bucqemcuig94o-cfyujmfmr), Administer at least 5.18mCi, up to 6.08mCi, IV, ONE TIME. Dosage based on Trujillo's Rule (age+1/age+7)*8 PET/CT Brain Imaging F18-FDG (Swguxnqq37-efoohasdtlguctnih), Administer 0.11mCi/kg with at least 1mCi, up to 10mCi, IV, ONE TIME. PET/CT Limited, Standard, or Whole-Body Oncology Imaging F18-FDG (Bcldedwz95- flurodeoxyglucose), Administer 0.11mCi/kg with at least 2mCi, up to 10mCi, IV, ONE TIME. Renal Cortical Imaging Sc86x-MBQL (Iohowruxdj08d-qalartgsgydlidlbni acid), Administer 0.05mCi/kg with at least 0.5mCi, up to 2.5mCi, IV, ONE TIME. Renogram Imaging Ei15v-AMNE (Czuumcrgih82q-twshgeyspm-qfcoaxrs-fpqzucwoosw), Administer 0.2mCi/kg with at least 2.5mCi, up kq89fIt OR Lk97c-WFX7 (Vfnktxzkxp90l-cfcspjfyaqvojwttzumoaoj), Administer 0.1mCi/kg with at least 1mCi, up to 5mCi, IV, ONE TIME. Renogram with Flow Imaging Xb97s-EDHP (Outltbcohq17w-gvgqwakzyl-hhtixmns-xfidteakbww), Administer 0.2mCi/kg with at least 2.5mCi, up vk07hNh OR Ek65e-DUC0 (Srwxzbvyud21h-wpolbzvqowpqfnifroqddia), Administer 0.1mCi/kg with at least 1mCi, up to 5mCi, IV, ONE TIME. Tp35n-MZY Imaging Im29g-Uryjegm (Mblyabresr22g-Qrtsggi), Administer 0.6mCi/kg heparanized WBC, IV, ONE TIME. Confirm calculated dose with nuclear medicine physician prior to injection. Testicular Imaging Tc-99m Pertechnetate (Hfdwapfdoo12g-bahrkdfxfxwsr), Administer 0.4mCi/kg with atleast 5mCi, up to 15mCi, IV, ONE TIME. Thyroid Imaging Tc-99m Pertechnetate (Zekgdjcady50z-thjeaiflrgbeh), Administer 0.07mCi/kg with at least 1mCi, up to 5mCi, IV, ONE TIME. Thyroid Scan/Uptake I-123 Na Iodide (Iodide-123 Na Iodide), Administer at least 100uCi, up to 200uCi, Orally, ONE TIME. Thyroid Scan/Uptake I-131 Na Iodide (Iodide-131 Na Iodide), Administer at least 2uCi, up to 20uCi, Orally, ONE TIME. Vasotec/Enalaprilat Renal Imaging Oo83f-MQBV (Lvfutoiday02s-wpckpypqcc-qpicffkl-xegqnlkoeek), Administer 0.2mCi/kg with at least 2.5mCi, up kg59bNq AND Administer Enalaprilat (Vasotec) 0.03mg/kg, up to 2.5mg. Dilute to 5mL total volume with normal saline and infuse via infusion device over 5 minutes. OR Mb46c-URL8 (Vztyhptgpw82h-mplsswkgddaqkcolwpeskme), Administer 0.1mCi/kg with at least 1mCi, up to 5mCi, IV, ONE TIME. AND Administer Enalaprilat (Vasotec) 0.03mg/kg, up to 2.5mg. Dilute to 5mL total volume with normal saline and infuse via infusion device over 5 minutes. Initiating Department(s): 11/2013 Nuclear Medicine and Pharmacy Reviewed: 08/2014 ,03/2016, 03/2017; 06/2017; 03/2018 Revised: 08/2014, 12/2016, 03/2017; 06/2017; 03/2018 Approved by: Medical Executive Committee, Imaging Services, and Pharmacy & Therapeutics Committee Date: 04/2018 UTER PROGRAMMER CHIEF documented in this encounter Plan of Treatment Upcoming Encounters Date Type Department Care Team (Late st Contact Info) Description 03/19/2025 10:45 AM CDT Appointment [facility] [id number] [place] [phone] Caron Mohan MD [address] [place] [address] 03/19/2025 11:30 AM CDT Office Visit [facility] [id number] [place] [phone] Caron Mohan MD [address] [place], [place] [id number] [place] [address] [facility] [address] [place] [phone] documented as of this encounter Procedures Procedure Name Priority Date/Time Associated Diagnosis Comments MAMMO POST PROCEDURE MAMMO LEFT Routine 11/22/2018 10:43 AM COMPUTER PROGRAMMER CHIEF Invasive ductal carcinoma of left breast PATHOLOGY Pathology 11/22/2018 10:15 AM COMPUTER PROGRAMMER CHIEF Invasive ductal carcinoma of breast, left SENTINEL LYMPH NODE BIOPSY 11/22/2018 9:27 AM COMPUTER PROGRAMMER CHIEF Invasive ductal carcinoma of breast, left BREAST LUMPECTOMY 11/22/2018 9:2 7 AM COMPUTER PROGRAMMER CHIEF Invasive ductal carcinoma of breast, left MAMMO US GUIDED BREAST LOCAL Routine 11/22/2018 8:55 AM COMPUTER PROGRAMMER CHIEF Invasive ductal carcinoma of left breast NM LYMPHOSCINTIGRAPHY Routine 11/22/2018 8:28 AM COMPUTER PROGRAMMER CHIEF Invasive ductal carcinoma of left breast documented in this encounter Results * MAMMO POST PROCEDURE MAMMO LEFT (11/22/2018 10:43 AM COMPUTER PROGRAMMER CHIEF) Anatomical Region Laterality Modality Breast Left Mammography 11/22/2018 7:37 AM COMPUTER PROGRAMMER CHIEF Impressions 11/25/2018 1:04 PM COMPUTER PROGRAMMER CHIEF IMPRESSION: Technically successful ultrasound-guided needle localization and surgical excision of the left breast as described above. DICTATION LOCATION: [facility] 11/25/2018 1:04 PM COMPUTER PROGRAMMER CHIEF ULTRASOUND-GUIDED NEEDLE LOCALIZATION OF THE LEFT BREAST LEFT UNILATERAL FULL-FIELD DIGITAL MAMMOGRAM SURGICAL SPECIMEN RADIOGRAPH OF THE LEFT BREAST DATE: 11/22/2018 HISTORY: Biopsy proven malignancy in the upper-inner quadrant of the left breast. The patient presents for needle localization and surgical excision. PROCEDURE AND FINDINGS: The risks and benefits of the procedure were explained to the patient and informed consent was obtained. The mass in the upper-inner quadrant was reidentified and the overlying skin surface was prepped and draped in sterile fashion. 1% lidocaine was used for local anesthesia. Under ultrasound guidance a 5 cm localization needle was inserted through the mass from a medial approach and 0.3 cc blue dye was injected. A wire was inserted and the needle was withdrawn over the wire. The wire was secured to the skin. The patient tolerated the procedure well and no significant complications were experienced. A two-view mammogram confirmed successful localization of the mass in the upper-inner left breast. Images were labeled, printed and sent with the patient to the surgical waiting area. A specimen radiograph was provided for review at 1030 hours. The tissue sample contains the mass and the biopsy clip centrally. Findings were called to the OR at the time of the exam. Procedure Note Fortino Coleman MD - 11/25/2018 ULTRASOUND-GUIDED NEEDLE LOCALIZATION OF THE LEFT BREAST LEFT UNILATERAL FULL-FIELD DIGITAL MAMMOGRAM SURGICAL SPECIMEN RADIOGRAPH OF THE LEFT BREAST DATE: 11/22/2018 HISTORY: Biopsy proven malignancy in the upper-inner quadrant of the left breast. The patient presents for needle localization and surgical excision. PROCEDURE AND FINDINGS: The risks and benefits of the procedure were explained to the patient and informed consent was obtained. The mass in the upper-inner quadrant was reidentified and the overlying skin surface was prepped and draped in sterile fashion. 1% lidocaine was used for local anesthesia. Under ultrasound guidance a 5 cm localization needle was inserted through the mass from a medial approach and 0.3 cc blue dye was injected. A wire was inserted and the needle was withdrawn over the wire. The wire was secured to the skin. The patient tolerated the procedure well and no significant complications were experienced. A two-view mammogram confirmed successful localization of the mass in the upper-inner left breast. Images were labeled, printed and sent with the patient to the surgical waiting area. A specimen radiograph was provided for review at 1030 hours. The tissue sample contains the mass and the biopsy clip centrally. Findings were called to the OR at the time of the exam. IMPRESSION: Technically successful ultrasound-guided needle localization and surgical excision of the left breast as described above. DICTATION LOCATION: [facility] Ita Vazquez MD MAMMO ORDERABLES * PATHOLOGY (11/22/2018 10:15 AM COMPUTER PROGRAMMER CHIEF) CASE REPORT Surgical Pathology Report ? Case: [id number] ? Authorizing Provider: ??Ita Vazquez MD ? Collected: ? 11/22/2018 10:15 AM ? Ordering Location: ? [facility] ?? Received: ?11/22/2018 10:18 AM ? [facility] ? Pathologist: ? Joaquín Holcomb MD ? Specimens: ?? A) - Axilla, left, senitinal lymph nodes ? B) - Breast, left, lumpectomy short stitch superior long stitch lateral clip at deep ? margin ? C) - Breast, left, re-excision medial to deep margin stitch at new margin ? 3:27 PM [facility] [employer] [facility] ADDENDUM 1 A request for Oncotype Dx testing was received 12/11/[address] Mohan. This test will be performed on tissue from case [id number]. The case report, slides, and blocks for this case were retrieved from archives. The pathologist reviewed the original pathology report, examined candidate slides, and selected the most appropriate block(s). This selected material is forwarded to [facility] where the test will be performed. Results will be directly issued to the treating physician by the laboratory performing the test. 3:27 PM [facility] [employer] [facility] Addendum electronically signed by Joaquín Holcomb MD on 12/11/2018 at 3:27 PM FINAL DIAGNOSIS A. 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 B. Breast, left, lumpectomy: - Invasive ductal carcinoma, with the following features: 1. Size: 1.3 cm. 2. Donnie score: 6/9. 3. Margins: Invasive carcinoma 3 mm from the posterior margin. 4. Lymphvascular invasion: Not definitively identified. 5. Stage: pT1c snN1mi. 6. Biomarkers: HER2 1+ (ER and MA positive performed previously on [id number]). - Radial scar. - Intraductal papilloma (0.1 cm). - Sclerosing adenosis. - Focal fat necrosis and hemosiderin deposition, consistent with biopsy site changes. - Microcalcifications identified, associated with background breast tissue. - Background breast with fibrocystic changes including usual duct hyperplasia, apocrine metaplasia, columnar cell change, and duct ectasia. C. Breast, left, medial to deep margin, reexcision: - Benign breast tissue, negative for carcinoma. 3:27 PM [facility] [employer] [facility] IMEN DESCRIPTION (A) Axilla, left, sentinel lymph nodes, collected at 1015; (B) breast, left, lumpectomy, short stitch superior, long stitch lateral, clip at deep margin, collected at 1023; (C) breast, left, re-excision medial to deep margin, stitch at new margin, collected at 1025. 9 3:27 PM [facility] OPERATIVE PROCEDURE Left breast lumpectomy with needle localization at 0830 am. Nuclear medicine at 0745, needle localization at 0830. Left axillary sentinel lymph node biopsy with nuclear medicine at 0745 am. 9 3:27 PM [facility] CLINICAL DIAGNOSIS Invasive ductal carcinoma of breast, left (C50.912). 9 3:27 PM [facility] GROSS DESCRIPTION The specimen is received in [...] and A3-second lymph node serially sectioned. The specimen is sectioned and placed in formalin at 1022. [...] to firm. The specimen is oriented with a long lateral, short superior, and a clip at [...] The biopsy clip is not seen in the plane of sections. The entire specimen is submitted superior to inferior as B1-superior margin perpendicularly sectioned; B2 to B4-level 2; B5 to B8-level 3; B9 to G47-kiafy 4; B13 to L76-uwxhr 5; B17 to R83-paaqh 6; B21 and 22-inferior margin perpendicularly sectioned. The specimen is sectioned and placed in formalin at 1045. Specimen C is additionally labeled breast, left, re-excision medial to deep margin, stitch at new margin. The specimen consists of a 7-g, lobulated piece of adipose tissue that measures 4.5 x 3 x 1 cm and is oriented with a suture at [...] sectioned and placed in formalin at 1100. MANISH/sania 9 3:27 PM [facility] MICROSCOPIC DESCRIPTION Slides are received labeled [id number] and Jolene Cedillo. The left axillary sentinel lymph nodes show a small focus of metastatic carcinoma in one lymph node, approximately 0.3 mm. Metastatic carcinoma is highlighted by a cytokeratin immunostain. The second lymph node is negative for carcinoma. Both lymph nodes show extensive fatty replacement. The lumpectomy specimen shows a focus of filtrating carcinoma, characterized by predominantly nests and cords of moderately atypical epithelial tumor cells (nuclear score 2). Tubule formation comprises just over 10% of the tumor volume (tubule score 2). The mitotic rate is moderately elevated, with 11 mitoses in 10 high-power espino (mitotic score [...] breast tissue and is negative for carcinoma. 9 3:27 PM [facility] SPECIAL AND IMMUNOPEROXIDASE STAINS Diagnosis: Invasive ductal carcinoma Site: Left breast Block #: B10 Cold Ischemia Time: 22 minutes Duration of Fixation: 55 hours Internal Control: present Test Results HER2 Protein Overexpression (Immunohistochemistr y) = 1+ Cases with equivocal staining (2+) [...] likelihood of false negativity on decalcified tissues. 9 3:27 PM [facility] SYNOPTIC REPORT INVASIVE CARCINOMA OF THE BREAST ??(Breast Invasive - All Specimens) SPECIMEN ?? Procedure: ?Excision (less than total mastectomy) ?? Specimen Laterality: ?Left TUMOR ?? Histologic Type: ?Invasive carcinoma of no special type (ductal, not otherwise specified) ?? Glandular (Acinar) / Tubular Differentiation: ?Score 2 ?? Nuclear Pleomorphism: ?Score 2 ?? Mitotic Rate: ?Score 2 (4-7 mitoses per mm2) ? Number of Mitoses per 10 High-Power Espino: ?11 mitotic figures ? Diameter of Microscope Field in Millimeters (mm): ?0.55 Millimeters (mm) ?? Overall Grade: ?Grade 2 (scores of 6 or 7) ?? Tumor Size: ?Greatest dimension of largest invasive focus in Millimeters (mm): 13 Millimeters (mm) ?? Tumor Focality: ?Single focus of invasive carcinoma ?? Ductal Carcinoma In Situ (DCIS): ?Not identified ?? Tumor Extent: ? Accessory Findings: ? Lymphovascular Invasion: ?Not identified ? Dermal Lymphovascular Invasion: ?No skin present ? Microcalcifications: ?Present in non-neoplastic tissue ? Treatment Effect: ?No known presurgical therapy MARGINS ?? Invasive Carcinoma Margins: ?Uninvolved by invasive carcinoma ? Distance from Closest Margin in Millimeters (mm): ?3 Millimeters (mm) ? Closest Margin: ?Posterior LYMPH NODES ?? Regional Lymph Nodes: ?Involved by tumor cells ? Number of Lymph Nodes with Macrometastases (> 2 mm): ?0 ? Number of Lymph Nodes with Micrometastases (> 0.2 mm to 2 mm and / or > 200 cells): ?1 ? Number of Lymph Nodes with Isolated Tumor Cells (<= 0.2 mm and <= 200 cells): ?0 ? Size of Largest Metastatic Deposit in Millimeters (mm): ?0.3 Millimeters (mm) ? Extranodal Extension: ?Not identified ? Number of Lymph Nodes Examined: ?2 ? Number of [place] Nodes Examined: ?2 PATHOLOGIC STAGE CLASSIFICATION (pTNM, AJCC 8th Edition) ?? TNM Descriptors: ?Not applicable ?? Primary Tumor (Invasive Carcinoma) (pT): ?pT1c ?? Regional Lymph Nodes (pN): ? Modifier: ?(sn): Only sentinel node(s) evaluated. ? Category (pN): ?pN1mi 9 3:27 PM COMPUTER PROGRAMMER CHIEF [facility] COMMENT Special stain and/or immunohistochemical results are interpreted with controls that demonstrate appropriate staining reactions. Note on use of immunocytochemistry reagents: This test was developed and its performance characteristic determined by [facility], Department of Laboratory Medicine. It has not been cleared or approved by the U.S. Food and Drug Administration. The FDA has determined that such clearance or approval is not necessary. The test is used for clinical purpose. It should not be regarded as investigational or for research. This laboratory is certified to perform high complexity testing. Case types starting with WS, WF, WB and WH are performed by [address], [address]. All other case types are performed by [address], [address]. 9 3:27 PM COMPUTER PROGRAMMER CHIEF [facility] Tissue (Axilla, left) Collection / Unknown 11/22/2018 10:15 AM COMPUTER PROGRAMMER CHIEF 11/22/2018 10:18 AM COMPUTER PROGRAMMER CHIEF Tissue specimen (specimen) LEFT BREAST STRUCTURE / Unknown 11/22/2018 10:23 AM COMPUTER PROGRAMMER CHIEF 11/22/2018 10:35 AM COMPUTER PROGRAMMER CHIEF Tissue specimen (specimen) LEFT BREAST STRUCTURE / Unknown 11/22/2018 10:25 AM COMPUTER PROGRAMMER CHIEF 11/22/2018 10:55 AM COMPUTER PROGRAMMER CHIEF Ita Vazquez MD PATHOLOGY/CYTOLOGY O OINERABETTINA [facility] CLIA# [id number] [address] [place] [address] [place] [address] * MAMMO US GUIDE NEEDLE PLACEMENT (11/22/2018 8:55 AM COMPUTER PROGRAMMER CHIEF) Anatomical Region Laterality Modality Breast N/A Ultrasound 11/22/2018 9:56 AM COMPUTER PROGRAMMER CHIEF Impressions 11/25/2018 1:04 PM COMPUTER PROGRAMMER CHIEF IMPRESSION: Technically successful ultrasound-guided needle localization and surgical excision of the left breast as described above. DICTATION LOCATION: [facility] [place] Narrative 11/25/2018 1:04 PM COMPUTER PROGRAMMER CHIEF ULTRASOUND-GUIDED NEEDLE LOCALIZATION OF THE LEFT BREAST LEFT UNILATERAL FULL-FIELD DIGITAL MAMMOGRAM SURGICAL SPECIMEN RADIOGRAPH OF THE LEFT BREAST DATE: 11/22/2018 HISTORY: Biopsy proven malignancy in the upper-inner quadrant of the left breast. The patient presents for needle localization and surgical excision. PROCEDURE AND FINDINGS: The risks and benefits of the procedure were explained to the patient and informed consent was obtained. The mass in the upper-inner quadrant was reidentified and the overlying skin surface was prepped and draped in sterile fashion. 1% lidocaine was used for local anesthesia. Under ultrasound guidance a 5 cm localization needle was inserted through the mass from a medial approach and 0.3 cc blue dye was injected. A wire was inserted and the needle was withdrawn over the wire. The wire was secured to the skin. The patient tolerated the procedure well and no significant complications were experienced. A two-view mammogram confirmed successful localization of the mass in the upper-inner left breast. Images were labeled, printed and sent with the patient to the surgical waiting area. A specimen radiograph was provided for review at 1030 hours. The tissue sample contains the mass and the biopsy clip centrally. Findings were called to the OR at the time of the exam. Ita Vazquez MD MAMMO ORDERABLES * NM LYMPHOSCINTIGRAPHY (11/22/2018 8:28 AM COMPUTER PROGRAMMER CHIEF) Anatomical Region Laterality Modality Nuclear Medicine 11/22/2018 8:28 AM COMPUTER PROGRAMMER CHIEF Impressions 11/22/2018 8:33 AM COMPUTER PROGRAMMER CHIEF IMPRESSION: ??[place] lymph node identified and marked in the axilla. Dictated by Dr. Fortino Islas MD DICTATION LOCATION: 1 Narrative 11/22/2018 8:33 AM COMPUTER PROGRAMMER CHIEF SENTINEL LYMPH NODE IMAGING DATE: 11/22/2018 8:28 AM HISTORY: Invasive ductal carcinoma of the left breast. PROCEDURE: Skin preparation with Betadine and alcohol. Technetium Lymphoseek was injected as 2 intradermal injections around the periareolar region. [place] lymph node in the axilla identified and marked. RADIOPHARMACEUTICAL: 0.52 mCi 99m technetium Lymphoseek Procedure Note Fortino Islas MD - 11/22/2018 SENTINEL LYMPH NODE IMAGING DATE: 11/22/2018 8:28 AM HISTORY: Invasive ductal carcinoma of the left breast. PROCEDURE: Skin preparation with Betadine and alcohol. Technetium Lymphoseek was injected as 2 intradermal injections around the periareolar region. [place] lymph node in the axilla identified and marked. RADIOPHARMACEUTICAL: 0.52 mCi 99m technetium Lymphoseek IMPRESSION: [place] lymph node identified and marked in the axilla. Dictated by Dr. 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, estrogen receptor positive Invasive ductal carcinoma of breast, left documented in this encounter Administered Medications Inactive Administered Medications - up to 3 most recent administrations Medication Order MAR Action Action Date Dose Rate Site bupivacaine PF (SENSORCAINE MPF) 0.5% 30 mL, lidocaine PF 1 % (XYLOCAINE MPF) 30 mL INJECTION INTRA-PROCEDURE PRN, Starting on Sun11/22/18 at 0958, Until Sun11/22/18 at 1058, Routine, Anesthesia Intra-op Given 11/22/2018 9:58 AM COMPUTER PROGRAMMER CHIEF 60 mL diphenhydrAMINE (BENADRYL) injection 12.5 mg 12.5 mg, IV, POST-PROCEDURE ONCE PRN, 2 doses, Starting on Sun11/22/18 at 0914, Until Sun11/22/18 at 1427, Nausea/Emesis, Routine, PACU HYDROcodone-acetamino phen (NORCO) 5-325 mg per tablet 1 Tablet 1 Tablet, Oral, EVERY 4 HOURS PRN, Starting on Sun11/22/18 at 1139, Until Sun11/22/18 at 1427, Pain, Moderate, Routine Given 11/22/2018 11:55 AM COMPUTER PROGRAMMER CHIEF 1 Tablet isosulfan blue (LYMPHAZURIN) injection INTRA-PROCEDURE PRN, Starting on Sun11/22/18 at 0958, Until Sun11/22/18 at 1058, Routine, Anesthesia Intra-op Given 11/22/2018 9:58 AM COMPUTER PROGRAMMER CHIEF 3 mL Operative Site lactated Ringers solution IV, at 150 mL/hr, PRE-PROCEDURE CONTINUOUS, Starting on Sun11/22/18 at 0645, Until Sun11/22/18 at 1427, Routine, Pre-op Continue from Pre-Op 11/22/2018 9:38 AM COMPUTER PROGRAMMER CHIEF New Bag 11/22/2018 9:18 AM COMPUTER PROGRAMMER CHIEF 150 mL/hr lactated Ringers solution IV, at 125 mL/hr, POST-PROCEDURE CONTINUOUS, Starting on Sun11/22/18 at 0930, Until Sun11/22/18 at 1427, Routine, PACU lidocaine PF 1 % (XYLOCAINE MPF) injection 30 mL 30 mL, Infiltration, ONE TIME ONLY, 1 dose, On Sun11/22/18 at 0900, Routine Admin by Another Clinician (Comment) 11/22/2018 8:45 AM COMPUTER PROGRAMMER CHIEF 4.5 mL Operative Site lidocaine PF 2 % (XYLOCAINE MPF) injection 0.3 mL 0.3 mL, Infiltration, PRE-PROCEDURE ONCE, Starting on Sun11/22/18 at 0642, Until Sun11/22/18 at 1427, Routine, Pre-op Given 11/22/2018 6:57 AM COMPUTER PROGRAMMER CHIEF 0.3 mL methylene blue (UROLENE BLUE) 1 % (10 mg/mL) injection 50 mg 50 mg (5 mL), See Admin Instructions, ONE TIME ONLY, 1 dose, On Sun11/22/18 at 0900, Routine Admin by Another Clinician (Comment) 11/22/2018 8:45 AM COMPUTER PROGRAMMER CHIEF 0.5 mg Operative Site morphine injection 2 mg 2 mg, IV, POST-PROCEDURE Q 5 MINUTES PRN, 10 doses, Starting on Sun11/22/18 at 0914, Until Sun11/22/18 at 1427, Pain, For pain 2-10, Routine, PACU morphine injection 4 mg 4 mg, IV, POST-PROCEDURE Q 5 MINUTES PRN, 2 doses, Starting on Sun11/22/18 at 0914, Until Sun11/22/18 at 1427, Pain, Moderate, For pain scale 4-6, Routine, PACU morphine injection 5 mg 5 mg, IV, POST-PROCEDURE Q 5 MINUTES PRN, 2 doses, Starting on Sun11/22/18 at 0914, Until Sun11/22/18 at 1427, Pain, Severe, For pain scale 7-10, Routine, PACU ondansetron (ZOFRAN) 4 mg/2 mL injection 4 mg 4 mg, IV, POST-PROCEDURE ONCE PRN, 1 dose, Starting on Sun11/22/18 at 0914, Until Sun11/22/18 at 1427, Nausea/Emesis, Routine, PACU sodium bicarbonate 4.2 % (0.5 mEq/mL) syringe 2.5 mEq 2.5 mEq, See Admin Instructions, ONE TIME ONLY, 1 dose, On Sun11/22/18 at 0900, Routine Started by Another Clinician 11/22/2018 8:45 AM COMPUTER PROGRAMMER CHIEF 0.25 mEq Operative Site sodium chloride 0.9 % irrigation solution INTRA-PROCEDURE PRN, Starting on Sun11/22/18 at 0958, Until Sun11/22/18 at 1058, Routine, Anesthesia Intra-op Given 11/22/2018 9:58 AM COMPUTER PROGRAMMER CHIEF 500 mL Operative Site documented in this encounter Active and Recently Administered Medications Times are shown in COMPUTER PROGRAMMER CHIEF. Scheduled Medication Order 11/20/2018 11/21/2018 11/22/2018 ceFAZolin in sterile water (ANCEF) 2 gram/20 mL IV Syringe (PREMIX) 2,000 mg (COMPLETED) 2,000 mg, IV, PRE-PROCEDURE ONCE, 1 dose, Starting on Sun11/22/18 at 0642, Until Sun11/22/18 at 0950, Routine, Pre-op, Antibiotic Indication: Surgical prophylaxis 0950 (Given - Provid er: Aubrie Goddard CRNA) lidocaine PF 1 % (XYLOCAINE MPF) injection 30 mL (COMPLETED) 30 mL, Infiltration, ONE TIME ONLY, 1 dose, On Sun11/22/18 at 0900, Routine 0845 (Admin by [facility] er Clinician (Comment) - Provider: Vicky Lugo RT - Comment: Infiltrate administered by Fortino Coleman MD) lidocaine PF 2 % (XYLOCAINE MPF) injection 0.3 mL 0.3 mL, Infiltration, PRE-PROCEDURE ONCE, Starting on Sun11/22/18 at 0642, Until Sun11/22/18 at 1427, Routine, Pre-op 0657 (Given - Provid er: Keri Marques RN) methylene blue (UROLENE BLUE) 1 % (10 mg/mL) injection 50 mg (COMPLETED) 50 mg (5 mL), See Admin Instructions, ONE TIME ONLY, 1 dose, On Sun11/22/18 at 0900, Routine 0845 (Admin by [facility] er Clinician (Comment) - Provider: Vicky Lugo, RT - Comment: Infiltrate administered by Fortino Coleman MD) sodium bicarbonate 4.2 % (0.5 mEq/mL) syringe 2.5 mEq (COMPLETED) 2.5 mEq, See Admin Instructions, ONE TIME ONLY, 1 dose, On Sun11/22/18 at 0900, Routine 0845 (Started by Ano ther Clinician - Provider: Vicky Lugo, RT - Comment: Infiltrate administered by Fortino Coleman MD) Continuous Medication Order 11/20/2018 11/21/2018 11/22/2018 lactated Ringers solution IV, at 150 mL/hr, PRE-PROCEDURE CONTINUOUS, Starting on Sun11/22/18 at 0645, Until Sun11/22/18 at 1427, Routine, Pre-op 0918 (New Bag - Prov ider: Viv Barraza RN)0938 (Continue from Pre-Op - Provider: Aubrie Goddard CRNA)1059 (Fluid Volume - Provider: Aubrie Goddard CRNA) lactated Ringers solution IV, at 125 mL/hr, POST-PROCEDURE CONTINUOUS, Starting on Sun11/22/18 at 0930, Until Sun11/22/18 at 1427, Routine, PACU 0930 (Due)1227 (Stop ped - Provider: Mirella Malone, RN) PRN Medication Order 11/20/2018 11/21/2018 11/22/2018 bupivacaine PF (SENSORCAINE MPF) 0.5% 30 mL, lidocaine PF 1 % (XYLOCAINE MPF) 30 mL INJECTION (CANCELED) INTRA-PROCEDURE PRN, Starting on Sun11/22/18 at 0958, Until Sun11/22/18 at 1058, Routine, Anesthesia Intra-op 0958 (Given - Provid er: Ita Vazquez MD) diphenhydrAMINE (BENADRYL) injection 12.5 mg 12.5 mg, IV, POST-PROCEDURE ONCE PRN, 2 doses, Starting on Sun11/22/18 at 0914, Until Sun11/22/18 at 1427, Nausea/Emesis, Routine, PACU HYDROcodone-acetaminophen (NORCO) 5-325 mg per tablet 1 Tablet 1 Tablet, Oral, EVERY 4 HOURS PRN, Starting on Sun11/22/18 at 1139, Until Sun11/22/18 at 1427, Pain, Moderate, Routine 1155 (Given - Provid er: Mirella Malone RN) isosulfan blue (LYMPHAZURIN) injection (CANCELED) INTRA-PROCEDURE PRN, Starting on Sun11/22/18 at 0958, Until Sun11/22/18 at 1058, Routine, Anesthesia Intra-op 0958 (Given - Provid er: Ita Vazquez MD) morphine injection 2 mg 2 mg, IV, POST-PROCEDURE Q 5 MINUTES PRN, 10 doses, Starting on Sun11/22/18 at 0914, Until Sun11/22/18 at 1427, Pain, For pain 2-10, Routine, PACU morphine injection 4 mg 4 mg, IV, POST-PROCEDURE Q 5 MINUTES PRN, 2 doses, Starting on Sun11/22/18 at 0914, Until Sun11/22/18 at 1427, Pain, Moderate, For pain scale 4-6, Routine, PACU morphine injection 5 mg 5 mg, IV, POST-PROCEDURE Q 5 MINUTES PRN, 2 doses, Starting on Sun11/22/18 at 0914, Until Sun11/22/18 at 1427, Pain, Severe, For pain scale 7-10, Routine, PACU ondansetron (ZOFRAN) 4 mg/2 mL injection 4 mg 4 mg, IV, POST-PROCEDURE ONCE PRN, 1 dose, Starting on Sun11/22/18 at 0914, Until Sun11/22/18 at 1427, Nausea/Emesis, Routine, PACU sodium chloride 0.9 % irrigation solution (CANCELED) INTRA-PROCEDURE PRN, Starting on Sun11/22/18 at 0958, Until Sun11/22/18 at 1058, Routine, Anesthesia Intra-op 0958 (Given - Provid er: Ita Vazquez MD) documented in this encounter Care Teams Care Nurse Rn Relationship Specialty Start Date End Date Francisco Long MD PCP - General Internal Medicine 06/27/18 documented as of this encounter
--- OUTSIDE RECORDS SUMMARY | 2024-11-16 13:29 | XMS_ITS | Encounter Summary ---
Author Organization [facility] Address [address] [place] [address] Care Team Providers Care Principal Gifts Officer Name Role Phone Francisco Long MD Primary Care Provider Unavailabl e Encounter Details Date Type Department Care Team (Late Contact Info) Description 10/01/2018 Orders Only [facility] BREAST SURGERY - [place] CLRKSN [address] [facility] [address] [place] [address] [place] [address] [place] [address] Invasive ductal carcinoma of breast, left (Primary Dx) Social History Tobacco Use Types [...] Description 03/19/2025 10:[address] [facility] [address] [place] [address] Caron Mohan MD [address] [place] [address] 03/19/2025 11:30 AM CDT Office Visit [facility]ology [address] [place] [address] Caron Mohan MD [address] [place], [place] [id number] [place] [address] [place] [address] documented as of this encounter Visit Diagnoses Diagnosis Invasive ductal carcinoma of breast, left- Primary documented in this encounter Care Teams Principal Gifts Officer Relationship Specialty Start Date End Date Francisco Long MD PCP - General Internal Medicine 06/27/18 documented as of this encounter
--- OUTSIDE RECORDS SUMMARY | 2024-11-16 13:29 | XMS_ITS | Encounter Summary ---
Author Organization [facility] Address [address] [place] [address] Care Team Providers Care Block Piler Name Role Phone Francisco Long MD Primary Care Provider Unavailabl e Reason for Visit * Reason Onset Date Comments Results 09/25/2018 Encounter Details Date Type Department Care Team (Late Contact Info) Description 09/25/2018 Telephone [facility] BREAST SURGERY - CLHUGO GUERRAKSBerenice [address] [place] [address] [place] [address] [place] [address] Results Social History Tobacco Use Types Packs/Day [...] encounter Miscellaneous Notes * Telephone Encounter - Ita Vazquez MD - 09/25/2018 9:41 AM CDT 09/25/2018 Results to patient. She will come in on Sunday the at 3:30. Ita Vazquez MD documented in this encounter Plan of Treatment Upcoming Encounters Date Type Department Care Team (Late st Contact Info) Description 03/19/2025 10:45 AM CDT Appointment [facility] [address] [place] [address] Caron Mohan MD [address] [place], [place] [id number] 03/19/2025 11:30 AM CDT Office Visit [facility] Oncology and Hematology [address] [place] [address] [place] [address] Caron Mohan MD [address] [place], [place] [phone] [place] [address] [place] [address] documented as of this encounter Visit Diagnoses Not on filedocumented in this encounter Care Teams Block Piler Relationship Specialty Start Date End Date Francisco Long MD PCP - General Internal Medicine 06/27/18 documented as of this encounter
--- OUTSIDE RECORDS SUMMARY | 2024-11-16 13:29 | XMS_ITS | Encounter Summary ---
Author Organization [facility] Address [address] [place] [address] Care Team Providers Care Bunch Maker Name Role Phone Francisco Long MD Primary Care Provider Unavailabl e Encounter Details Date Type Department Care Team (Late Contact Info) Description [facility]2018 [facility] [address] [place] [address] Enma Verdugo, RN Social History Tobacco Use Types Packs/Day [...] Progress Notes * Enma Verdugo RN - 11/28/2018 2:29 PM CST Navigational follow up call: Patient denies any immediate concerns. Other than anemia, she reports she is doing well. Denies any questions regarding upcoming surgery. Continues to research holistic options to add to any treatment recommended after surgery. Patient emailed information on [facility]. Patient aware to contact office with any questions or for referral. Enma Verdugo RN BS BSN Breast Health Nurse Navigator-[facility] RNATIONAL TRADE ANALYST documented in this encounter Plan of Treatment Upcoming Encounters Date Type Department Care Team (Late st Contact Info) Description 03/19/2025 10:[address] [facility] [address] [place] [address] Caron Mohan MD [address] [place], [place] [id number] 03/19/2025 11:30 AM CDT Office Visit [facility] and Hematology [address] [place] [address] [place] [address] Caron Mohan MD [address] [place], [place] [id number] [place] [address] [place] [address] documented as of this encounter Visit Diagnoses Not on filedocumented in this encounter Care Teams Bunch Maker Relationship Specialty Start Date End Date Francisco Long MD PCP - General Internal Medicine 06/27/18 documented as of this encounter
--- OUTSIDE RECORDS SUMMARY | 2024-11-16 13:29 | XMS_ITS | Encounter Summary ---
Author Organization [facility] Address [address] [place] [address] Care Team Providers Care Tool And Die Maker Level Five Name Role Phone Francisco Long MD Primary Care Provider Unavailabl e Reason for Visit * Auth/Cert Specialty Diagnoses / Procedures Referred By Halima t Referred To Contact Diagnoses Invasive ductal carcinoma of breast, left Invasive ductal carcinoma of breast, left [C50.912] Procedures AZ MASTECTOMY, PARTIAL AZ BX/REMV,LYMPH NODE,DEEP AXILL AZ INTRAOPERATIVE SENTINEL LYMPH NODE ID W DYE INJECTION CHG LYMPHATICS & LYMPH GLANDS IMAGING Left Breast Lumpectomy W/NLOC [place] [address] [place] [address] Referral ID Status Reason Start Date Expiration Date Visits Re quested Visits Authorized [id number] 10/02/2018 1 1 Encounter Details Date Type Department Care Team (Late st Contact Info) Description 11/22/2018 9:38 AM MAINTENANCE WELDER Anesthesia Event [facility] [place] [address] [address] [facility] [address] [place] [phone] Sharath Mills MD [address] [place] [address] Aubrie Goddard CRNA [address] [place] [address] Anesthesia Record Procedure Summary Procedure Name Responsible Anesthesiologist Anesthesia Start Time Anesthesia Stop Time LEFT BREAST LUMPECTOMY WITH NLOC @ 8:30 AM (Left: Breast) Sharath Mills MD 11/22/18 0938 11/22/18 1103 Events Date Time Event Comment 11/22/2018 0854 AN Equip Check Anesthesia eq uipment and materials checked in accordance with local policy. 0915 0938 An Start Patient identif ied, EPIC chart, anesthesia plan, and consent reviewed and discussed with patient. Questions elicited and answered. Patient/family verbalizes understanding of anesthesia plan and wishes to proceed, Preop medicine given as documented. 0940 an fortino now Arrive in OR, p atient begins moving self to OR table with assist as needed. 0941 An Start Data 0943 Pre-Induction Immediate pre- induction anesthetic assessment performed. Vital signs as noted on graphic. 0945 An Induction 0946 An LMA 0947 Anesthesia Ready 0957 an fortino now Surgeon injects Lymphazuren to left breast 1031 An ESU 1036 An ESU 1040 An ESU 1054 Supraglottic Removed Spontan eous respirations. LMA discontinued without difficulty. Oropharynx suctioned as indicated. 1057 an stop data 1058 Procedure Patient stable. Oxygen applied. Data Collection ends from intraop monitors. Transferred patient to bed/stretcher. Taken to PACU with O2. 1059 an fortino now Arrive in PACU, report to RN. Handoff report completed with questions addressed and answered. Vital signs charted on anesthesia flow sheet. 1103 An Stop Meds Name Total propofol (DIPRIVAN) 10??mg/mL injection 200 mg lidocaine PF (XYLOCAINE MPF) 20 mg/mL sy ringe 60 mg ondansetron (ZOFRAN) 4??mg/2 mL injectio n 4 mg dexamethasone (DECADRON) 4 mg/mL injecti on 8 mg midazolam PF (VERSED) 1 mg/mL injection 2 mg fentaNYL (SUBLIMAZE) PF 50??mcg/mL injec tion 125 mcg ceFAZolin in sterile water (ANCEF) 2 gra m/20 mL IV Syringe (PREMIX) 2,000 mg 2,000 mg lactated Ringers solution 800 mL * Agents Name Air Sevoflurane % Sevoflurane O2 N2O Inspired N2O O2 * Blood No blood administrations on file. Lines, Drains, and Airways Type Details Placement Removal Wound 11/22/18; 1004; No; 1; Left; axilla; surgical 11/22/18 1004 by Ginny White RN Wound 11/22/18; 1018; No; 2; Left; breast; surgical 11/22/18 1018 by Ginny White RN Supraglottic Airway Type: oral airway; S ize: 9; Attempts: 1; Confirmation: satisfactory chest rise, end tidal CO2 11/22/18 1054 by 11/23/18 0027 by PROVIDER, DISCHARGE PATIENT Peripheral IV Pre-Hospital Start: No; Orientation: Right; Location: Hand; Device: Angiocath; Gauge: 20 gauge; Needle Length: 1 in length; Insertion Attempts: 1; Patient Tolerance: tolerated well; Removal Indication: no longer indicated; Removal Interventions: pressure dressing, catheter intact 11/22/18 0656 by Keri Marques RN 11/22/18 1226 by Mirella Malone RN Supraglottic Airway Mask Jelani: ventilated by mask; Type: LMA; Size: 4; Attempts: 1; Confirmation: satisfactory chest rise, end tidal CO2; Comments: lips, gums, teeth as pre-insertion 11/22/18 0946 by Aubrie Goddard CRNA 11/22/18 1054 by Aubrie Goddard CRNA documented in this encounter Social History Tobacco [...] OR Notes * Anesthesia Postprocedure Evaluation - Sharath Mills MD - 11/22/2018 12:29 PM CST Phase II Postanesthesia Evaluation Including [facility] Modified Alexus Score Patient seen and evaluated: [facility] Modified Alexus Score: Score: 19 (11/22/18 1226) COMMENTS: No apparent Anesthesia related complications RESPIRATORY FUNCTION: Respiration: able to breath and cough freely (11/22/18 1226) [2=able to breathe and cough freely, 1=dyspnea, limited breathing or tachypnea, 0=apnea or mechanicventilator] O2 Saturation: able to maintain O2 saturation greater than 92% on room air (11/22/18 1226) [2=able to maintain O2 saturation greater than 92% on room air, 1=needs O2 inhalation to maintain O2 saturation greater than 90%, 0=O2 saturation less than 90% even with O2 supplement] Resp: 25 (11/22/18 1220)SpO2: 95 % (11/22/18 1220) CARDIOVASCULAR FUNCTION: Heart Rate: 85 bpm (11/22/18 1220) BP: 126/55 (11/22/18 1215) Circulation: BP within 20% of preanesthetic level (11/22/18 122) [2=BP within 20% of preanesthetic level, 1=BP within 20-49% of preanesthetic level, 0=BP within 50%of preanesthetic level] MENTAL STATUS, NEURO, ACTIVITY: PATIENT PARTICIPATION IN EVALUATIONyes Consciousness: fully awake (11/22/18 122) [2=fully awake, 1=arousable on calling, 0=not responding] Activity: able to move 4 extremities voluntarily or on command (11/22/18 122) [2=able to move 4 extremities voluntarily or on command, 1=able to move 2 extremities voluntarily or on command, 0=unable to move extremities voluntarily or on command] Ambulation: able to stand up and walk straight, on ordered bedrest, or performing at patient's prior level of function (11/22/18 122) [2=able to stand up and walk straight, on ordered bedrest, or performing at patient's prior level of function, 1=vertigo when erect, 0=dizziness when supine] TEMPERATURE: Temp: 36.3 ??C (11/22/18 1059) PAIN: Pain Rating: Rest: 2 (11/22/18 1220) Pain: pain handled by oral medication (11/22/18 122) [2=pain free, 1=pain handled by oral medication, 0=pain requiring parenteral medication] NAUSEA AND VOMITING: no nausea and no vomiting Fasting/Feeding: able to drink fluids, ice chips or NPO (11/22/18 122) [2=able to drink fluids, ice chips or NPO, 1=nauseated, 0=nausea and vomiting] POSTOPERATIVE HYDRATION: well hydrated Intake/Output Summary (Last 24 hours) at 11/22/18 1259 Last data filed at 11/22/18 1227 Gross per 24 hour Intake 1120 ml Output 0 ml Net 1120 ml Urine Output: has voided, adequate urine output per device, or not applicable (11/22/18 1226) [2=has voided, adequate urine output per device, or not applicable, 1=unable to void but comfortable, 0=unable to void and uncomfortable] WOUND: Dressing: dry and clean or not applicable (11/22/18 1226) [2=dry and clean or not applicable, 1=wet, marked and not increasing, 0=growing area of wetness] Sharath Mills MD 11/22/2018 12:59 PM Sharath Mills MD TENANCE WELDER * Anesthesia Handoff - Aubrie Goddard CRNA - 11/22/2018 11:03 AM CST Post-Anesthetic transfer of care report elements to appropriate post-anesthesia recovery environment completed in accordance with procedure. I completed my handoff to the receiving nurse during which we: 1. Identified the patient 2. Identified the responsible provider 3. Reviewed the pertinent medical history 4. Discussed the surgical course 5. Reviewed intra-op anesthesia management and issues during anesthesia 6. Set expectations for post-procedure period 7. Allowed opportunity for questions and acknowledgement of understanding. Vital Signs: BP: 100/51 (11/22/2018 10:59 AM) Pulse: 71 (11/22/2018 10:59 AM) Temp: 36.3 ??C (11/22/2018 10:59 AM) Resp: 13 (11/22/2018 10:59 AM) SpO2: 100 % (11/22/2018 10:59 AM) 11:03 AM Aubrie Goddard CRNA TENANCE WELDER * Anesthesia Preprocedure Evaluation - Sharath Mills MD - 11/22/2018 9:12 AM CST Relevant Problems No relevant active problems Anesthesia Evaluation Anesthesia Plan ASA 2 General Intravenous induction Supraglottic airway maintenance NPO status > 8 hours Plan discussed with Nurse Sweater Operator. Post-op Pain Control Plan to use IV or IM medication for post-op pain control. Plan for postoperative opioid use Smoking Compliance Patient did not smoke on day of surgery Pre-Anesthesia Evaluation - Long Form 11/22/2018 9:13 AM Name: Jolene Cedillo Age: 72 y.o. Sex: female CSN: [id number] Allergies Allergen Reactions ??? Atorvastatin Muscle Pain ??? Codeine Nausea and Vomiting Reaction: Nausea, Prescriptions Prior to Admission Medication Sig Dispense Refill Last Dose ??? benzonatate (TESSALON PERLE ORAL) Take 100 mg by mouth. 11/21/2018 at Unknown time ??? losartan-hydroCHLOROthiazide (HYZAAR) 100-12.5 mg tablet Take 1 Tablet by mouth daily. 11/21/2018 at Unknown time ??? ferrous sulfate (Iron) 325 mg (65 mg iron) tablet Take 325 mg by mouth daily. 11/21/2018 at Unknown time ??? methotrexate (RHEUMATREX) 2.5 mg Tablet Take 2.5 mg by mouth every 7 days 6 tabs on . 11/20/2018 Current Facility-Administered Medications Medication Dose Route Frequency Provider Last Rate Last Dose ??? lactated Ringers solution IV Pre-Proc Continuous Ita Vazquez MD ??? lidocaine PF 2 % (XYLOCAINE MPF) [...] See Admin Instructions ONCE Fortino Coleman MD Patient Active Problem List Diagnosis Date Noted ??? Malignant neoplasm of upper-inner quadrant of left breast in female, estrogen receptor ezbyasvd61/06/2018 Overview Note: Stage: Clinical T1 N0 Date of diagnosis: 09/23/18 Diagnosis: LEFT IDC ER(+) AZ(+) Her 2 (-) Surgeon: [facility] Surgery: Medical Oncologist: Chemotherapy: Radiation Oncologist: Radiation: Hormonal therapy: ??? Invasive ductal carcinoma of left breast 10/01/2018 ??? Breast lump 09/13/2018 Past Medical History: Diagnosis Date ??? Arthritis [...] ??? 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 AZ LAP,LYMPH NODE BX N/A 07/09/2018 PELVIC LYMPH NODE STAGING DAVINCI SI performed by Micki Cadena MD at [facility] OR [facility] ??? AZ LAP,RMV ADNEXAL STRUCTURE Bilateral 07/09/2018 SALPINGO-OOPHORECTOMY DAVINCI SI performed by Micki Cadena MD at [facility] OR [facility] ??? AZ LAPAROSCOPY W TOT HYSTERECT UTERUS 250 GRAM OR LESS N/A 07/09/2018 HYSTERECTOMY TOTAL DAVINCI SI performed by Micki Cadena MD at [facility] Social History Substance Use Topics ??? Smoking status: Never Smoker ??? Smokeless tobacco: Never Used ??? Alcohol use Yes Comment: rare Family History Problem Relation Age of Onset ??? Breast Cancer Neg Hx ??? Ovarian Cancer Neg Hx Previous Anesthesia Problems/Concerns: No anesthesia problems/complications History of PONV No Review of Systems Cardiovascular: htn, dvt after TKA Respiratory: negative Gastroenterology: negative PHYSICAL EXAM BP (!) 143/71 (BP Location: Left arm, Patient Position (BP): Supine) Pulse 89 Temp 36.6 ??C (Temporal) Resp 14 Ht 5' 7 (1.702 m) Wt 83 kg (183 lb) SpO2 97% BMI 28.66 kg/m?? Weight: Weight: 83 kg (183 lb) (11/22/18 0646) Height: Ht Readings from Last 1 Encounters: 11/22/18 5' 7 (1.702 m) BMI: Body mass index is 28.66 kg/m??. Airway: normal range of motion: Airway Class: II ; None Lungs: clear to auscultation bilaterally, normal respiratory effort Heart: regular rate and rhythm, S1, S2 normal, no murmur, click, rub or gallop Neuro: alert, oriented x 3, no defects noted in general exam. Vascular Access: Peripheral Line LABS Lab Results Component Value Date/Time WBC 10.1 (H) 07/10/2018 04:05 AM HEMOGLOBIN 10.9 (L) 07/10/2018 04:05 AM HEMATOCRIT 35.5 07/10/2018 04:05 AM PLATELETS 205 07/10/2018 04:05 AM MCV 83.5 07/10/2018 04:05 AM Lab Results Component Value Date/Time SODIUM 137 07/10/2018 04:05 AM POTASSIUM 3.8 07/10/2018 04:05 AM CHLORIDE 100 07/10/2018 04:05 AM CO2 26 07/10/2018 04:05 AM CALCIUM 8.4 (L) 07/10/2018 04:05 AM BUN 8 07/10/2018 04:05 AM CREATININE 0.73 07/10/2018 04:05 AM GLUCOSE 140 (H) 07/10/2018 04:05 AM ANION GAP 11 07/10/2018 04:05 AM No results found for: INR, PT, PROTIMEPOC No results found for: HCGURPOC, HCGQUALUR, HCGQUAL, HCGQUANT, HCGINTACT No results found for: GLUCPOC EKG: none indicated today Other Studies/Considerations: None Postop pain management discussed yes Smoking/Tobacco Counseling: None Recommendations: None ASA Physical Status: ASA 2 - Patient with mild systemic disease with no functional limitations I have seen and examined this patient and confirm that all data is current and accurate. Yes Choice of Anesthesia/Anesthesia Plan: Proceed and General I have discussed the anesthetic options and the risks/benefits with the patient/family. Questions have been solicited and answered. Yes Sharath Mills MD TENANCE WELDER documented in this encounter Plan of Treatment Upcoming Encounters Date Type Department Care Team (Late st Contact Info) Description 03/19/2025 10:45 AM CDT Appointment [facility] [address] [place] [address] Caron Mohan MD [address] [place] [address] 03/19/2025 11:30 AM CDT Office Visit [facility] [address] [place] [address] Caron Mohan MD [address] [place] [address] [place] [address] [place] [address] documented as of this encounter Visit Diagnoses Not on filedocumented in this encounter Administered Medications Inactive Administered Medications - up to 3 most recent administrations Medication Order MAR Action Action Date Dose Rate Site ceFAZolin in sterile water (ANCEF) 2 gram/20 mL IV Syringe (PREMIX) 2,000 mg 2,000 mg, IV, PRE-PROCEDURE ONCE, 1 dose, Starting on Sun11/22/18 at 0642, Until Sun11/22/18 at 0950, Routine, Pre-op, Antibiotic Indication: Surgical prophylaxis Given 11/22/2018 9:50 AM MAINTENANCE WELDER 2,000 mg dexamethasone (DECADRON) injection INTRA-PROCEDURE PRN, Starting on Sun11/22/18 at 0953, Until Sun11/22/18 at 1103, Routine, Anesthesia Intra-op Given 11/22/2018 9:53 AM MAINTENANCE WELDER 8 mg fentaNYL PF (SUBLIMAZE) 50 mcg/mL injection INTRA-PROCEDURE PRN, Starting on Sun11/22/18 at 0938, Until Sun11/22/18 at 1103, Pain (See admin instructions), Routine, Anesthesia Intra-op Given 11/22/2018 10:41 AM MAINTENANCE WELDER 25 mcg Given 11/22/2018 9:59 AM MAINTENANCE WELDER 50 mcg Given 11/22/2018 9:38 AM MAINTENANCE WELDER 50 mcg lactated Ringers solution IV, at 150 mL/hr, PRE-PROCEDURE CONTINUOUS, Starting on Sun11/22/18 at 0645, Until Sun11/22/18 at 1427, Routine, Pre-op Continue from Pre-Op 11/22/2018 9:38 AM MAINTENANCE WELDER New Bag 11/22/2018 9:18 AM MAINTENANCE WELDER 150 mL/hr lidocaine PF (XYLOCAINE MPF) 100 mg/5 mL (2 %) injection INTRA-PROCEDURE PRN, Starting on Sun11/22/18 at 0945, Until Sun11/22/18 at 1103, Routine, Anesthesia Intra-op Given 11/22/2018 9:45 AM MAINTENANCE WELDER 60 mg midazolam (PF) (VERSED) injection INTRA-PROCEDURE PRN, Starting on Sun11/22/18 at 0938, Until Sun11/22/18 at 1103, Routine, Anesthesia Intra-op Given 11/22/2018 9:38 AM MAINTENANCE WELDER 2 mg ondansetron (ZOFRAN) 4 mg/2 mL injection INTRA-PROCEDURE PRN, Starting on Sun11/22/18 at 1049, Until Sun11/22/18 at 1103, Nausea/Emesis, Routine, Anesthesia Intra-op Given 11/22/2018 10:49 AM MAINTENANCE WELDER 4 mg propofol (DIPRIVAN) injection INTRA-PROCEDURE PRN, Starting on Sun11/22/18 at 0945, Until Sun11/22/18 at 1103, Anesthesia Intra-op Given 11/22/2018 9:45 AM MAINTENANCE WELDER 200 mg documented in this encounter Care Teams Tool And Die Maker Level Five Relationship Specialty Start Date End Date Francisco Long MD PCP - General Internal Medicine 06/27/18 documented as of this encounter
--- OUTSIDE RECORDS SUMMARY | 2024-11-16 13:29 | XMS_ITS | Encounter Summary ---
Author Organization [facility] Address [address] [place] [address] Care Team Providers Care Karate Instructor Name Role Phone Francisco Long MD Primary Care Provider Unavailabl e Encounter Details Date Type Department Care Team (Late st Contact Info) Description 09/20/2018 Orders Only [facility] BREAST SURGERY - [place] CLRKSN [address] [place] [phone] Francisco Long MD NO ADDRESS ON FILE Social History Tobacco [...] Description 03/19/2025 10:[address] [facility] [address] [address] [place] [phone] Caron Mohan MD 7 [facility] [address] [place] [phone] 03/19/2025 11:30 AM CDT Office Visit [facility] and Hematology [address] [place] [address] Caron Mohan MD [address] [facility] [address] [place] [phone] [place] [address] [place] [phone] documented as of this encounter Procedures Procedure Name Priority Date/Time Associated Diagnosis Comments MAMMO BREAST US LEFT LTD Routine 09/03/2018 MAMMO DIAGNOSTIC UNI LEFT W OR WO CAD Routine 09/03/2018 documented in this encounter Results * (ABNORMAL) MAMMO BREAST US LEFT LTD (09/03/2018) Anatomical Region Laterality Modality Left Other Abstract Provider MAMMO ORDERABLES * (ABNORMAL) MAMMO DIAGNOSTIC UNI LEFT W OR WO CAD (09/03/2018) Anatomical Region Laterality Modality Breast Left Other Francisco Long MD MAMMO ORDERABLES documented in this encounter Visit Diagnoses Not on filedocumented in this encounter Care Teams Karate Instructor Relationship Specialty Start Date End Date Francisco Long MD PCP - General Internal Medicine 06/27/18 documented as of this encounter
--- OUTSIDE RECORDS SUMMARY | 2024-11-16 13:29 | XMS_ITS | Encounter Summary ---
Author Organization [facility] Address [address] [place] [address] Care Team Providers Care Horse Rancher Name Role Phone Francisco Long MD Primary Care Provider Unavailabl e Encounter Details Date Type Department Care Team (Late st Contact Info) Description 11/15/2018 Chart Note [facility] BREAST SURGERY - CLYTBerenice GOMEZ [address] [place] [address] [place] [address] [facility] [address] [place] [address] Social History Tobacco Use Types Packs/Day Years [...] of this encounter Progress Notes * Jossue Hurt RN - 11/15/2018 2:55 PM CST Patient called today to let us know that her PCP does not want her to discontinue her iron supplements prior to surgery because patient has a history of iron deficient anemia. Dr. Vazquez is ok for patient to continue her iron tablets leading up to surgery. RANGE TENDER documented in this encounter Plan of Treatment Upcoming Encounters Date Type Department Care Team (Late st Contact Info) Description 03/19/2025 10:45 AM CDT Appointment [facility] [address] [place] [address] Caron Mohan MD [address] [place] [address] 03/19/2025 11:30 AM CDT Office Visit [facility] Oncology and Hematology [address] [place] [address] Caron Mohan MD [address] [place], [place] [phone] [place] [address] [place] [address] documented as of this encounter Visit Diagnoses Not on filedocumented in this encounter Care Teams Horse Rancher Relationship Specialty Start Date End Date Francisco Long MD PCP - General Internal Medicine 06/27/18 documented as of this encounter
--- OUTSIDE RECORDS SUMMARY | 2024-11-16 13:29 | XMS_ITS | Encounter Summary ---
Author Organization [facility] Address [address] [place] [address] Care Team Providers Care Network Planner Name Role Phone Francisco Long MD Primary Care Provider Unavailabl e Encounter Details Date Type Department Care Team (Late st Contact Info) Description 11/21/2018 Chart Note [facility] [address] [address] [place] [phone] Enma Verdugo RN Social History Tobacco Use [...] 10:45 AM CDT Appointment [facility] [address] [address] [place] [address] Caron Mohan MD [address] [facility] [address] [place] [phone] 03/19/2025 11:30 AM CDT Office Visit [facility] Oncology and Hematology [address] [place] [address] Caron Mohan MD [address] [facility] [facility] [address] [place] [address] [place] [address] [place] [address] documented as of this encounter Visit Diagnoses Not on filedocumented in this encounter Care Teams Network Planner Relationship Specialty Start Date End Date Francisco Long MD PCP - General Internal Medicine 06/27/18 documented as of this encounter
--- OUTSIDE RECORDS SUMMARY | 2024-11-16 13:29 | XMS_ITS | Encounter Summary ---
Author Organization [facility] Address [address] [place] [address] Care Team Providers Care Certified Activities Director Name Role Phone Francisco Long MD Primary Care Provider Unavailabl e Reason for Referral * Radiology Services (Routine) - Closed Specialty Diagnoses / Procedures Referred By Halima garcia Referred To Contact Diagnoses Breast lump Procedures MAMMO [place] [address] [place] [address] Referral ID Status Reason Start Date Expiration Date Visits Re quested Visits Authorized [id number] Closed 09/13/2018 10/14/2019 1 1 Reason for Visit * Radiology Services (Routine) - Closed Specialty Diagnoses / Procedures Referred By Halima garcia Referred To Contact Diagnoses Breast lump Procedures MAMMO [place] [address] [place] [address] Referral ID Status Reason Start Date Expiration Date Visits Re quested Visits Authorized [id number] Closed 09/13/2018 10/14/2019 1 1 Encounter Details Date Type Department Care Team (Latest Contact Info) Description 09/23/2018 10:04 AM CDT - 09/23/2018 11:59 PM CDT Hospital Encounter [facility] [address] [place] [address] [place] [address] [place] [address] Discharge Disposition: Home or Self Care [...] mouth every 7 days. 6 tabs on losartan-hydroCHLOROthiaz abiel (HYZAAR) 100-12.5 mg tablet Take 1 Tablet by mouth daily. 06/08/2021 documented as of this encounter Progress Notes * Enma Verdugo RN - 09/24/2018 4:50 PM CDT Results positive for malignancy. The findings and recommendations for appropriate treatment will bediscussed with the patient by the office of Dr. Ita Vazquez. Enma Verdugo RN BS BSN Breast Health Nurse Navigator[facility] documented in this encounter Plan of Treatment Upcoming Encounters Date Type Department Care Team (Late st Contact Info) Description 03/19/2025 10:[address] [facility] [address] [place] [phone] Caron Mohan MD [address] [place] [id number] 03/19/2025 11:30 AM CDT Office Visit [facility] Oncology and Hematology [address] [place] [address] Caron Mohan MD [address] [place] [phone] [place] [address] [address] [place] [address] documented as of this encounter Procedures Procedure Name Priority Date/Time Associated Diagnosis Comments MAMMO BREAST US BIOPSY LEFT Routine 09/23/2018 11:21 AM CDT Breast lump PATHOLOGY Pathology 09/23/2018 10:30 AM CDT documented in this encounter Results * MAMMO BREAST US BIOPSY LEFT (09/23/2018 11:21 AM CDT) Anatomical Region Laterality Modality Breast Left Ultrasound Tissue SPECIMEN FROM BREAST / Unknown 09/23/2018 2:30 PM CDT Addenda Addendum by Fortino Coleman MD on 09/27/2018 4:52 PM CDT ADDENDUM: Ultrasound-guided core biopsy of the left breast performed on 09/23/2018 reveals invasive ductal carcinoma measuring up to 12 mm in the tissue samples. The tumor is positive for estrogen and progesterone receptors and negative for HER-2/[place] overexpression. Low to intermediate grade DCIS is also identified with associated microcalcifications. This is positive for malignancy. The patient will follow-up with Dr. Vazquez for surgical management. Impressions 09/24/2018 11:26 AM CDT IMPRESSION: ?? Technically successful ultrasound-guided core biopsy with tissue marker placement. Dictated from: Mercedes White Narrative 09/24/2018 11:26 AM CDT EXAM: ULTRASOUND-GUIDED CORE BIOPSY OF THE LEFT BREAST, TISSUE MARKER CLIP PLACEMENT, UNILATERAL DIGITAL MAMMOGRAM DATE: 09/23/2018 11:21 AM HISTORY: A mass identified in the upper left breast. Biopsy was requested for tissue diagnosis. PROCEDURE AND FINDINGS: ??The risks and potential benefits of the procedure were discussed with the patient and written informed consent was obtained. After sterile preparation of the skin, 1% lidocaine was utilized for local anesthesia. From a medial approach a 12 spring-loaded core biopsy device was advanced through the lesion of interest using sonographic guidance. A total of 3 tissue cores were obtained throughout the lesion. A tissue marker clip was then placed at the biopsy site. Hemostasis was achieved. A sterile bandage and an ice pack were applied. A two-view left unilateral digital mammogram was obtained postprocedure and this demonstrates that the tissue marker clip is in the expected position. The patient tolerated the procedure well and there was no evidence of immediate complication. The patient was given verbal as well as written postprocedural instructions prior to the release from the department. The tissue cores were submitted to surgical pathology in formalin for histologic analysis. Ita Vazquez MD MAMMO ORDERABLES * PATHOLOGY (09/23/2018 10:30 AM CDT) CASE REPORT Surgical Pathology Report ? Case: [id number] ? Authorizing Provider: ??Fortino Coleman MD ?? Collected: ? 09/23/2018 10:30 AM ? Ordering Location: ? [facility] ?Received: ?09/23/2018 01:20 PM ? [address] ? Pathologist: ? Willow Mitchell MD ? Specimen: ?Breast, left ? 09/24/2018 3:25 PM [facility] FINAL DIAGNOSIS Breast, left, core biopsy: - Invasive ductal carcinoma, with the following features: 1. Size: 12 mm. 2. Donnie score: 6/9. 3. Lymphvascular invasion: Not identified. 4. Stage: pT1c. - Biomarker results: ER 8/8 (positive), [place] 8/8 (positive), Her2 IHC 1+ (negative). - Low to intermediate grade ductal carcinoma in situ, minute focus, with associated calcifications. 09/24/2018 3:25 PM [facility] IMEN DESCRIPTION Left breast. Tissue obtained at 1030, in formalin at 1032. 09/24/2018 3:25 PM [facility] OPERATIVE PROCEDURE Ultrasound core biopsy left breast. 09/24/2018 3:25 PM [facility] CLINICAL INFORMATION Left breast mass concerning for malignancy. 09/24/2018 3:25 PM [facility] GROSS DESCRIPTION Received in a single container labeled Jolene Cedillo, left breast mass, are three cores of yellow-white, indurated tissue all 0.3 cm in diameter and 1.7, 1.8, 1.7 cm in length. The specimen is submitted entirely in cassettes A1 and A2. ROSCOE/alma 09/24/2018 3:25 PM [facility] MICROSCOPIC DESCRIPTION Received are slides labeled [id number] and Jolene Cedillo. All three tissue cores from the left breast show involvement by invasive ductal carcinoma, 12 mm in maximum dimension. The malignant cells are present as aggregates with focal tubule formation (3), intermediate grade nuclei (2), and a low mitotic rate (1), for a [place]edar score 6. Angiolymphatic invasion is not observed. A minute (0.4 mm) transected focus of ductal carcinoma in situ is present in the mass, cribriform pattern, with low to intermediate nuclear grade features, associated calcifications but no necrosis. Results of biomarker testing: Diagnosis: Invasive ductal carcinoma. Site: Left breast. Block #: A1. Cold Ischemia Time: 2 minutes. Duration of Fixation: 11.5 hours. Internal Control: Positive. Test Results HER2 Protein Overexpression (immunohistochemistry ) = 1+ (negative) Cases with equivocal staining (2+) will be sent for HER2 testing by FISH and the results reported in an addendum. ER Total Score (immunohistochemistry ) = 8/8 Proportion Score = 5/5 Intensity Score = 3/3 NJ Total Score (immunohistochemistry ) = 8/8 Proportion Score = 5/5 Intensity Score = 3/3 HER2 membrane staining (Antibody Clone 4B5) is scored on a 0 to 3+ scale in accordance to 2018 CAP/ASCO guidelines. Estrogen and progesterone receptor content is assayed in a semiquantitative manner utilizing the ER antibody (Clone SP1) and NJ antibody (Clone 1E2). Results are reported as a total score (range 0 to 8) which equals the sum of the proportion score (percentage of tumor cells with positive nuclear staining) and the intensity score (average staining intensity of all positive tumor cells). Reference Ranges HER2 score 0 (Negative) = no expression or incomplete, faint membrane staining and within <10% of tumor cells 1+ (Negative) = incomplete, faint membrane staining and within >10% of tumor cells 2+ (Equivocal) = weak/moderate complete membrane staining within >10% of tumor cells. 3+ (Positive) = circumferential membrane staining that is complete and intense ER and NJ Total Score 0-2 = negative >= 3 = positive ER and NJ Proportion Score (% positive cells) 0 = none 1 = > 0 to < 1% 2 = > or = 1% to 10% 3 = > 10% to 33.3% 4 = > 33.3% to 66.7% 5 = > 66.7% ER and NJ Intensity Score (average staining intensity) 0 = none 1 = weak 2 = intermediate 3 = strong * Studies are performed on neutral-buffered formalin-fixed paraffin embedded sections unless otherwise specified. These assays have not been validated on decalcified tissues. Results should be interpreted with caution given the likelihood of false negativity on decalcified tissues. 09/24/2018 3:25 PM CDT [facility] COMMENT Special stain and/or immunohistochemical results are interpreted with controls that demonstrate appropriate staining reactions. Note on use of immunocytochemistry reagents: This test was developed and its performance characteristic determined by [facility], Department of Laboratory Medicine. It has not [...] WF, WB and WH are performed by [address], [address]. All other case types are performed by [facility] [address] [facility] [address]. 09/24/2018 3:25 PM CDT [facility] Tissue LEFT BREAST STRUCTURE / Unknown 09/23/2018 10:30 AM CDT 09/23/2018 1:20 PM CDT Fortino Coleman MD PATHOLOGY/CYTOLOG Y ORDERABLES [facility] CLIA# [id number] [address] [facility] [place] [address] documented in this encounter Visit Diagnoses Diagnosis Breast lump Lump or mass in breast documented in this encounter Administered Medications Inactive Administered Medications - up to 3 most recent administrations Medication Order MAR Action Action Date Dose Rate Site lidocaine 1 % (XYLOCAINE) injection 10 mL 10 mL, Infiltration, ONE TIME ONLY, 1 dose, On Sun09/23/18 at 1245, Routine Admin by Another Clinician (Comment) 09/23/2018 10:45 AM CDT 4.5 mL Operative Site lidocaine-EPINEPHrine (XYLOCAINE-EPI) 2 %-1:100,000 injection 20 mL 20 mL, Infiltration, ONE TIME ONLY, 1 dose, On Sun09/23/18 at 1245, Routine Admin by Another Clinician (Comment) 09/23/2018 10:45 AM CDT 9 mL Operative Site sodium bicarbonate (NEUT) 4 % injection 200 mg 200 mg (5 mL), See Admin Instructions, ONE TIME ONLY, 1 dose, On Sun09/23/18 at 1245, Routine Admin by Another Clinician (Comment) 09/23/2018 10:45 AM CDT 1.5 mg Operative Site documented in this encounter Care Teams Certified Activities Director Relationship Specialty Start Date End Date Francisco Long MD PCP - General Internal Medicine 06/27/18 documented as of this encounter
--- OUTSIDE RECORDS SUMMARY | 2024-11-16 13:29 | XMS_ITS | Encounter Summary ---
Author Organization [employer] [facility] Address [address] [place] [address] Care Team Providers Care [employer] Supervisor Name Role Phone Francisco Long MD Primary Care Provider Unavailabl e Reason for Referral * Radiology Services (Routine) - Closed Specialty Diagnoses / Procedures Referred By Halima t Referred To Contact Diagnoses Invasive ductal carcinoma of left breast Procedures MAMMO US GUIDE NEEDLE PLACEMENT MAMMO NEED[place] [address] [place] [address] Referral ID Status Reason Start Date Expiration Date Visits Re quested Visits Authorized [id number] Closed 10/01/2018 11/01/2019 1 1 TRANSIT OPERATOR * Radiology Services (Routine) - Closed Specialty Diagnoses / Procedures Referred By Halima t Referred To Contact Diagnoses Invasive ductal carcinoma of left breast Procedures NM [place] [address] [place] [address] Referral ID Status Reason Start Date Expiration Date Visits Re quested Visits Authorized [id number] Closed 10/01/2018 11/01/2019 1 1 TRANSIT OPERATOR * Radiology Services (Routine) - Closed Specialty Diagnoses / Procedures Referred By Halima t Referred To Contact Diagnoses Invasive ductal carcinoma of left breast Procedures MAMMO POST [place] [address] [place] [address] Referral ID Status Reason Start Date Expiration Date Visits Re quested Visits Authorized [id number] Closed 10/01/2018 11/01/2019 1 1 TRANSIT OPERATOR Reason for Visit * Reason Comments Cancer Talk Encounter Details Date Type Department Care Team (Late st Contact Info) Description 10/01/2018 3:45 PM PARATRANSIT OPERATOR Office Visit [facility] BREAST SURGERY - [place] [address] [place] [address] [place] [address] [place] [address] Invasive ductal carcinoma of left breast (Primary Dx) Social History Tobacco Use Types [...] Sign Reading Time Taken Comments Blood Pressure 144/88 10/01/2018 2:33 PM PARATRANSIT OPERATOR Pulse - - Temperature - - Respiratory Rate - - Oxygen Saturation - - Inhaled Oxygen Concentration - - Weight 86.2 kg (190 lb) 10/01/2018 2:33 PM PARATRANSIT OPERATOR Height 170.2 cm (5' 7 ) 10/01/2018 2:33 PM PARATRANSIT OPERATOR Body Mass Index 29.76 10/01/2018 2:33 PM PARATRANSIT OPERATOR documented in this encounter Progress Notes * Ita Vazquez MD - 10/01/2018 2:36 PM CST PATIENT: Jolene Cedillo : 1945 DATE: 10/01/2018 The patient presents today to discuss her recent breast cancer diagnosis. She comes in today with her . IMAGIN09/03/18: Bilateral mammogram with left additional views and ultrasound at [place]- there is a new 16 mm irregular mass at 9:00 on the left. Stable 1.7 cm nodular density in the left subareolar breast. By ultrasound this measures 1.3 cm. Biopsy is recommended 05/25/17: Bilateral mammogram PATHOLOGY: 09/23/18 Breast, left, core biopsy: - Invasive ductal carcinoma, with the following features: 1. Size: 12 mm. 2. Donnie score: 6/9. 3. Lymphvascular invasion: Not identified. 4. Stage: pT1c. - Biomarker results: ER 8/8 (positive), [place] 8/8 (positive), Her2 IHC 1+ (negative). - Low to intermediate grade ductal carcinoma in situ, minute focus, with associated calcifications ASSESSMENT AND PLAN: Stage T1 N0 cancer of the left breast. - I reviewed her pathology with her as well as her imaging findings. - I reviewed surgical options including lumpectomy versus mastectomy and the role of sentinel lymphnode biopsy. I explained that for all comers, lumpectomy and mastectomy were equivalent in treatingsingle site breast cancers. -We discussed the pros and cons of breast MRI. She is not interested in this. - I reviewed the role of the medical oncologist and basic indications for chemotherapy and hormonaltherapy. - I reviewed the role of the radiation oncologist. She would like to have this done in [place]. - 40 minutes was spent in discussion with the patient. - a breast cancer book was provided to the patient. - Please see the individualized family conference sheet. A copy was sent with the patient. At the end of our discussion she was most interested in lumpectomy and sentinel lymph node biopsy. I reviewed the surgery as well as expected healing. We will work on getting her scheduled. Ita Vazquez MD, FACS cc: Francisco Long MD TRANSIT OPERATOR documented in this encounter Plan of Treatment Upcoming Encounters Date Type Department Care Team (Late st Contact Info) Description 03/19/2025 10:45 AM CDT Appointment [facility] [address] [place] [address] Caron Mohan MD [address] [place] [address] 03/19/2025 11:30 AM CDT Office Visit [facility] Oncology and Hematology [address] [place] [address] Caron Mohan MD [address] [place] [address] [place] [address] [place] [address] documented as of this encounter Results * MAMMO POST PROCEDURE MAMMO LEFT (11/22/2018 10:43 AM PARATRANSIT OPERATOR) Anatomical Region Laterality Modality Breast Left Mammography 11/22/2018 7:37 AM PARATRANSIT OPERATOR Impressions 11/25/2018 1:04 PM PARATRANSIT OPERATOR IMPRESSION: Technically successful ultrasound-guided needle localization and surgical excision of the left breast as described above. DICTATION LOCATION: [facility] 11/25/2018 1:04 PM PARATRANSIT OPERATOR ULTRASOUND-GUIDED NEEDLE LOCALIZATION OF THE LEFT BREAST [...] left breast as described above. DICTATION LOCATION: [facility] Ita Vazquez MD MAMMO ORDERABLES * MAMMO US GUIDE NEEDLE PLACEMENT (11/22/2018 8:55 AM PARATRANSIT OPERATOR) Anatomical Region Laterality Modality Breast N/A Ultrasound 11/22/2018 9:56 AM PARATRANSIT OPERATOR Impressions 11/25/2018 1:04 PM PARATRANSIT OPERATOR IMPRESSION: Technically successful ultrasound-guided needle localization and surgical excision of the left breast as described above. DICTATION LOCATION: [facility] 11/25/2018 1:04 PM PARATRANSIT OPERATOR ULTRASOUND-GUIDED NEEDLE LOCALIZATION OF THE LEFT BREAST [...] ORDERABLES * NM LYMPHOSCINTIGRAPHY (11/22/2018 8:28 AM PARATRANSIT OPERATOR) Anatomical Region Laterality Modality Nuclear Medicine 11/22/2018 8:28 AM PARATRANSIT OPERATOR Impressions 11/22/2018 8:33 AM PARATRANSIT OPERATOR IMPRESSION: ??[place] lymph node identified and marked in the axilla. Dictated by Dr. Fortino Islas MD DICTATION LOCATION: 1 Narrative 11/22/2018 8:33 AM PARATRANSIT OPERATOR SENTINEL LYMPH NODE IMAGING DATE: 11/22/2018 8:28 AM HISTORY: Invasive ductal carcinoma of the left breast. PROCEDURE: Skin preparation with Betadine and alcohol. Technetium Lymphoseek was injected as 2 intradermal injections around the periareolar region. [place] lymph node in the axilla identified and marked. RADIOPHARMACEUTICAL: 0.52 mCi 99m technetium Lymphoseek Procedure Note Fortino Islas MD - 11/22/2018 SENTINEL LYMPH NODE IMAGING DATE: 11/22/2018 8:28 AM HISTORY: Invasive ductal carcinoma of the left breast. PROCEDURE: Skin preparation with Betadine and alcohol. Technetium Lymphoseek was injected as 2 intradermal injections around the periareolar region. [place] lymph node in the axilla identified and marked. RADIOPHARMACEUTICAL: 0.52 mCi 99m technetium Lymphoseek IMPRESSION: [place] lymph node identified and marked in the axilla. Dictated by Dr. Fortino Islas MD DICTATION LOCATION: 1 Ita Vazquez MD NM ORDERABLES documented in this encounter Visit Diagnoses Diagnosis Invasive ductal carcinoma of left breast- Primary documented in this encounter Care Teams [employer] Supervisor Relationship Specialty Start Date End Date Francisco Long MD PCP - General Internal Medicine 06/27/18 documented as of this encounter
--- OUTSIDE RECORDS SUMMARY | 2024-11-16 13:29 | XMS_ITS | Encounter Summary ---
Author Organization [facility] Address [address] [place] [address] Care Team Providers Care Director Of Retail Merchandising Name Role Phone Francisco Long MD Primary Care Provider Unavailabl e Reason for Visit * Reason Onset Date Comments Results 09/24/2018 Encounter Details Date Type Department Care Team (Late st Contact Info) Description 09/24/2018 Telephone [facility] BREAST SURGERY - [place] [address] [place] [address] [place] [address] [place] [address] Results Social History Tobacco Use [...] Telephone Encounter - Ita Vazquez MD - 09/24/2018 4:45 PM CDT Jolene Cedillo 1945 09/24/2018 4:45 PM I called the patient today to discuss her biopsy results. Pathology: Breast, left, core biopsy: - Invasive ductal carcinoma, with the following features: 1. Size: 12 mm. 2. [place] score: 6/9. 3. Lymphvascular invasion: Not identified. 4. Stage: pT1c. - Biomarker results: ER 8/8 (positive), [place] 8/8 (positive), Her2 IHC 1+ (negative). - Low to intermediate grade ductal carcinoma in situ, minute focus, with associated calcifications. LM Ita Vazquez MD documented in this encounter Plan of Treatment Upcoming Encounters Date Type Department Care Team (Late st Contact Info) Description 03/19/2025 10:45 AM CDT Appointment [facility] [address] [place] [address] Caron Mohan MD [address] [place], [place] [id number] 03/19/2025 11:30 AM CDT Office Visit [facility] Oncology and Hematology [address] [place] [address] Caron Mohan MD [address] [place], [place] [id number] [place] [address] [place] [address] documented as of this encounter Visit Diagnoses Not on filedocumented in this encounter Care Teams Director Of Retail Merchandising Relationship Specialty Start Date End Date Francisco Long MD PCP - General Internal Medicine 06/27/18 documented as of this encounter
--- OUTSIDE RECORDS SUMMARY | 2024-11-16 13:29 | XMS_ITS | Encounter Summary ---
Author Organization [facility] Address [address] [place] [address] Care Team Providers Care Gas Burner Operator Name Role Phone Francisco Long MD Primary Care Provider Unavailabl e Reason for Visit * Reason Comments Breast Mass Left Breast Mass Encounter Details Date Type Department Care Team (Late st Contact Info) Description 09/17/2018 12:15 PM CDT Office Visit [facility] BREAST SURGERY - [place] CLRKSN [address] [place] [address] [place] [address] [place] [address] Breast lump on left side at 9 o'clock position (Primary Dx); Breast lump Social History Tobacco Use Types Packs/Day Years [...] Sign Reading Time Taken Comments Blood Pressure 138/84 09/17/2018 12:11 PM CDT Pulse - - Temperature - - Respiratory Rate - - Oxygen Saturation - - Inhaled Oxygen Concentration - - Weight 84.4 kg (186 lb) 09/17/2018 12:11 PM CDT Height 170.2 cm (5' 7 ) 09/17/2018 12:11 PM CDT Body Mass Index 29.13 09/17/2018 12:11 PM CDT documented in this encounter Progress Notes * Ita Vazquez MD - 09/17/2018 12:49 PM CDT PATIENT: Jolene Cedillo : 1945 DATE: 09/17/2018 CHIEF COMPLAINT: abnormal mammogram HISTORY OF PRESENT ILLNESS: Jolene Cedillo is a 72 y.o. female referred by Dr. Cadena for evaluation and recommendations regarding her recent breast imaging. She was called back for additional views of the left breast. She has a mass and biopsy has been recommended. She denies lumps, skin changes, nipple discharge, or pains in either breast. Family history shows no cancer. She has a personal history of endometrial cancer. . Menarche at 12. She is retired. PMH: Past Medical History: Diagnosis Date ??? Arthritis RA ??? At risk for obstructive sleep apnea STOP BANG ??? Cancer 05/2018 UTERINE ??? Dyspnea on exertion ??? HTN (hypertension) ??? 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 HX CATARACT EXTRACTION, BILATERAL ??? 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 AZ LAP,LYMPH NODE BX N/A 07/09/2018 PELVIC LYMPH NODE STAGING DAVINCI SI performed by Micki Cadena MD at [facility] ??? AZ LAP,RMV ADNEXAL STRUCTURE Bilateral 07/09/2018 SALPINGO-OOPHORECTOMY DAVINCI SI performed by Micki Cadena MD at [facility] OR [facility] ??? AZ LAPAROSCOPY W TOT HYSTERECT UTERUS 250 GRAM OR LESS N/A 07/09/2018 HYSTERECTOMY TOTAL DAVINCI SI performed by Micki Cadena MD at [facility] ALLERGY: Allergies Allergen Reactions ??? Atorvastatin Muscle Pain ??? Codeine Nausea and Vomiting Reaction: Nausea, MEDS: Current Outpatient Prescriptions Medication Sig Dispense Refill ??? oxyCODONE-acetaminophen (PERCOCET) 5-325 mg tablet Take 1 Tablet by mouth every 4 hours as needed for pain. Max Daily Amount: 6 Tablets 42 Tablet 0 ??? enoxaparin (LOVENOX) 40 mg/0.4 mL injection Inject 0.4 mL (40 mg) under the skin daily. 1.6 mL 0 ??? methotrexate (RHEUMATREX) 2.5 mg Tablet Take 2.5 mg by mouth every 7 days 6 tabs on . ??? losartan-hydroCHLOROthiazide (HYZAAR) 100-12.5 mg tablet Take 1 Tablet by mouth daily. ??? ferrous sulfate (Iron) 325 mg (65 mg iron) tablet Take 325 mg by mouth daily. No current facility-administered medications for this visit. FHX: No family history on file. SOC: Social History Social History ??? Marital [...] noted above. Immunizations: non-contributory PHYSICAL EXAM: BP 138/84 Ht 5' 7 (1.702 m) Wt 84.4 kg (186 lb) BMI 29.13 kg/m?? General: well-developed, well-nourished HEENT: normocephalic/atraumatic. Extra-occular [...] oriented x 3. Breasts: Nipples are everted. Neither breast has dominant mass, skin changes, nipple discharge, or axillary lymphadenopathy. IMAGING: I personally reviewed imaging dated: 09/03/18: Bilateral mammogram with left additional views and ultrasound at [facility]- there is a new 16 mm irregular mass at 9:00 on the left. Stable 1.7 cm nodular density in the left subareolar breast. By ultrasound this measures 1.3 cm. Biopsy is recommended 05/25/17: Bilateral mammogram ASSESSMENT AND PLAN: Left breast mass. Biopsy is recommended. We will proceed and I will call her with her pathology report. Ita Vazquez MD, FACS I would like to thank Dr. Cadena for asking me to consult on this patient. cc: Francisco Long MD Murray, Karuna, MD documented in this encounter Plan of Treatment Upcoming Encounters Date Type Department Care Team (Late st Contact Info) Description 03/19/2025 10:45 AM CDT Appointment [facility] [address] [place] [phone] Caron Mohan MD [address] [place] [phone] 03/19/2025 11:30 AM CDT Office Visit [facility] Oncology and Hematology [place] [address] [place] [address] Caron Mohan MD [address] [place] [phone] [place] [address] [address] [place] [address] documented as of this encounter Visit Diagnoses Diagnosis Breast lump on left side at 9 o'clock position- Primary Lump or mass in breast Breast lump Lump or mass in breast documented in this encounter Care Teams Gas Burner Operator Relationship Specialty Start Date End Date Francisco Long MD PCP - General Internal Medicine 06/27/18 documented as of this encounter
--- OUTSIDE RECORDS SUMMARY | 2024-11-16 13:29 | XMS_ITS | Encounter Summary ---
Author Organization [facility] Address [address] [place] [address] Care Team Providers Care Developmental Education Instructor Name Role Phone Francisco Long MD Primary Care Provider Unavailabl e Reason for Visit * Reason Comments Results pathology Encounter Details Date Type Department Care Team (Late st Contact Info) Description 12/02/2018 Chart Note [facility] BREAST SURGERY - [place] [facility] [address] [place] [address] [place] [address] [place] [address] Results (pathology) Social History Tobacco Use Types Packs/Day Years Used Date Smoking Tobacco: Never Smokeless Tobacco: Never Alcohol Use Standard Drinks/Week Comments Yes 0 (1 standard drink = 0.6 oz pur e alcohol) rare Sex and Gender Information Value Date Recorded Sex Assigned at Not on file Gender Identity Not on file Sexual Orientation Not on file documented as of this encounter Progress Notes * Wendi Moulton - 12/02/2018 3:14 PM CST Spoke with pt. Pathology results given for left axillary sentinel lymph node excision, left breast lumpectomy done at [facility] on 11-22-2018. Path reveals A. 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 ?? B. Breast, left, lumpectomy: - Invasive ductal carcinoma, with the following features: 1. Size: 1.3 cm. 2. Donnie score: 6/9. 3. Margins: Invasive carcinoma 3 mm from the posterior margin. 4. Lymphvascular invasion: Not definitively identified. 5. Stage: pT1c snN1mi. 6. Biomarkers: HER2 1+ (ER and [place] positive performed previously on [id number]). - Radial scar. - Intraductal papilloma (0.1 [...] - Benign breast tissue, negative for carcinoma. Pt. doing well. Healing well. Minimal discomfort. Follow up appt scheduled with Dr. Vazquez 12-10@2pm. Will schedule Med Onc Appt. Will schedule Rad Onc appt at [facility], closer to home. Will contact pt with details. Pt voices understanding. 12-02-[address] John Ag office at [facility] for Rad Onc appt. They will set up appt and contact pt with details. [employer] documented in this encounter Plan of Treatment Upcoming Encounters Date Type Department Care Team (Late st Contact Info) Description 03/19/2025 10:45 AM CDT Appointment [facility] [address] [place] [address] Caron Mohan MD [address] [place] [phone] 03/19/2025 11:30 AM CDT Office Visit [facility] Oncology and Hematology [place] [address] [place] [address] Caron Mohan MD [address] [facility] [facility] [address] [place], [place] [phone] [place] [address] [address] [place] [address] documented as of this encounter Visit Diagnoses Not on filedocumented in this encounter Care Teams Developmental Education Instructor Relationship Specialty Start Date End Date Francisco Long MD PCP - General Internal Medicine 06/27/18 documented as of this encounter
--- OUTSIDE RECORDS SUMMARY | 2024-11-16 13:29 | XMS_ITS | Encounter Summary ---
Author Organization [facility] Address [address] [place] [address] Care Team Providers Care Conservation Of Resources Commissioner Name Role Phone Francisco Long MD Primary Care Provider Unavailabl e Reason for Referral * Radiology Services (Routine) - Closed Specialty Diagnoses / Procedures Referred By Halima garcia Referred To Contact Diagnoses Breast lump Procedures MAMMO POST [place] [address] [place] [address] Referral ID Status Reason Start Date Expiration Date Visits Re quested Visits Authorized [id number] Closed 09/17/2018 10/18/2019 1 1 Reason for Visit * Radiology Services (Routine) - Closed Specialty Diagnoses / Procedures Referred By Halima garcia Referred To Contact Diagnoses Breast lump Procedures MAMMO POST [place] [address] [place] [address] Referral ID Status Reason Start Date Expiration Date Visits Re quested Visits Authorized [id number] Closed 09/17/2018 10/18/2019 1 1 Encounter Details Date Type Department Care Team (Latest Contact Info) Description 09/23/2018 10:12 AM CDT - 09/23/2018 11:59 PM CDT Hospital Encounter [facility] [address] [place] [address] [place] [address] [place] [address] Discharge Disposition: Home or Self [...] Appointment [facility] [address] [place] [phone] Caron Mohan MD [address] [place] [phone] 03/19/2025 11:30 AM CDT Office Visit [facility] Oncology and Hematology [address] [place] [address] Caron Mohan MD [address] [place] [phone] [place] [address] [place] [address] documented as of this encounter Procedures Procedure Name Priority Date/Time Associated Diagnosis Comments MAMMO POST PROCEDURE MAMMO LEFT Routine 09/23/2018 11:31 AM CDT Breast lump documented in this encounter Results * MAMMO POST PROCEDURE MAMMO LEFT (09/23/2018 11:31 AM CDT) Anatomical Region Laterality Modality Breast Left Mammography 09/23/2018 11:3 2 AM CDT Addenda Addendum by Fortino Coleman MD [...] surgical pathology in formalin for histologic analysis. Procedure Note Fortino Coleman MD - 09/24/2018 EXAM: ULTRASOUND-GUIDED CORE BIOPSY OF THE LEFT BREAST, TISSUE MARKER CLIP PLACEMENT, UNILATERAL DIGITAL MAMMOGRAM DATE: 09/23/2018 11:21 AM HISTORY: A mass identified in the upper left breast. Biopsy was requested for tissue diagnosis. PROCEDURE AND FINDINGS: The risks and potential benefits of the [...] surgical pathology in formalin for histologic analysis. IMPRESSION: Technically successful ultrasound-guided core biopsy with tissue marker placement. Dictated from: Mercedes White Ita Vazquez MD MAMMO ORDERABLES documented in this encounter Visit Diagnoses Diagnosis Breast lump Lump or mass in breast documented in this encounter Care Teams Conservation Of Resources Commissioner Relationship Specialty Start Date End Date Francisco Long MD PCP - General Internal Medicine 06/27/18 documented as of this encounter
--- OUTSIDE RECORDS SUMMARY | 2024-11-16 13:29 | XMS_ITS | Encounter Summary ---
Author Organization [facility] Address [address] [place] [address] Care Team Providers Care Corrections Caseworker Name Role Phone Francisco Long MD Primary Care Provider Unavailabl e Encounter Details Date Type Department Care Team (Late st Contact Info) Description 10/04/[address] [facility] [address] [place] [address] Enma Verdugo RN Social History [...] Progress Notes * Enma Verdugo RN - 10/04/2018 10:53 AM CST Navigational follow call to check on patient's well being and assess for any areas of concern. Patient reports she is doing well and feels positive about POC. Patient reports a solid support system at home. Denies any financial, insurance or transportation issues at this time. She will plan for RT closer to home for convenience. Patient also sees a holistic physician in her area to compliment hermedical treatments received. Stressed the importance of keeping her treatment team updated on any new or addtional supplements she may be taking. Reviewed plan for follow up during treatment. She is encouraged to contact the [facility] office for any assistance needed; contact information provided. Patientgrateful for follow up call. Enma Verdugo RN BS BSN Breast Health Nurse Navigator-[facility] [employer] documented in this encounter Plan of Treatment Upcoming Encounters Date Type Department Care Team (Late st Contact Info) Description 03/19/2025 10:[address] [facility] [address] [place] [phone] Caron Mohan MD [address] [place], [place] [phone] 03/19/2025 11:30 AM CDT Office Visit [facility] Oncology and Hematology [address] [place] [address] Caron Mohan MD [address] [place], [place] [phone] [place] [address] [place] [address] documented as of this encounter Visit Diagnoses Not on filedocumented in this encounter Care Teams Corrections Caseworker Relationship Specialty Start Date End Date Francisco Long MD PCP - General Internal Medicine 06/27/18 documented as of this encounter
--- OUTSIDE RECORDS SUMMARY | 2024-11-16 13:29 | XMS_ITS | Encounter Summary ---
Author Organization [employer] [facility] Address [address] [place] [address] Care Team Providers Care Quantitative Consultant Name Role Phone Francisco Long MD Primary Care Provider Unavailabl e Reason for Referral * Radiology Services (Routine) - Closed Specialty Diagnoses / Procedures Referred By Halima garcia Referred To Contact Diagnoses Invasive ductal carcinoma of left breast Procedures [place] [address] [place] [address] Referral ID Status Reason Start Date Expiration Date Visits Re quested Visits Authorized [id number] Closed 10/01/2018 11/01/2019 1 1 [employer]QUARI[employer] SPECIMENS * Radiology Services (Routine) - Closed Specialty Diagnoses / Procedures Referred By Halima garcia Referred To Contact Diagnoses Invasive ductal carcinoma of left breast Procedures MAMMO POST [place] [address] [place] [address] Referral ID Status Reason Start Date Expiration Date Visits Re quested Visits Authorized [id number] Closed 10/01/2018 11/01/2019 1 1 [employer]ARI[employer] SPECIMENS Reason for Visit * Auth/Cert Specialty Diagnoses / Procedures Referred By Halima garcia Referred To Contact Diagnoses Invasive ductal carcinoma of breast, left Invasive ductal carcinoma of breast, left [C50.912] Procedures NC MASTECTOMY, PARTIAL NC BX/REMV,LYMPH NODE,DEEP AXILL NC INTRAOPERATIVE SENTINEL LYMPH NODE ID W DYE INJECTION CHG LYMPHATICS & LYMPH GLANDS IMAGING Left Breast Lumpectomy W/NLOC [place] [address] [place] [address] Referral ID Status Reason Start Date Expiration Date Visits Re quested Visits Authorized [id number] 10/02/2018 1 1 Encounter Details Date Type Department Care Team (Latest Contact Info) Description 11/22/2018 6:12 AM COLLECTOR OF AQUARIUM SPECIMENS - 11/22/2018 12:27 PM COLLECTOR OF AQUARIUM SPECIMENS Hospital Encounter [facility] SURGERY [facility] [address] [place] [id number] [place] [address] [address] [facility] [address] [place] [address] Malignant neoplasm of upper-inner quadrant of left breast in female, estrogen receptor positive Discharge Disposition: Home or Self Care Social [...] Sign Reading Time Taken Comments Blood Pressure 126/55 11/22/2018 12:15 PM [employer]AR[employer]CIM[employer] Pulse 85 11/22/2018 12:20 PM COL[employer]OR [employer] AQUARIUM SPECIM[employer] Temperature 36.3 ??C (97.4 ??F) 11/22/2018 10:[address] Respiratory Rate 25 11/22/2018 12:20 PM COL[employer]OR [employer] AQUARI[employer] SPECIMENS Oxygen Saturation 95% 11/22/2018 12:20 PM COL[employer]OR [employer] AQUARIUM SPECIMENS Inhaled Oxygen Concentration - - Weight 83 kg (183 lb) 11/22/2018 6:46 AM COL[employer]OR [employer] AQUARIUM SPECIMENS Height 170.2 cm (5' 7 ) 11/22/2018 6:46 AM COL[employer]OR [employer] AQUARIUM SPECIMENS Body Mass Index 28.66 11/22/2018 6:46 AM COLLECTOR OF AQUARIUM SPECIMENS documented in this encounter Discharge Instructions * Discharge Instructions* Ita Vazquez MD - 11/22/2018 11:02 AM COLLECTOR OF AQUARIUM SPECIMENS [facility] [address] [facility] [address] [place] [address] Post operative instructions: Activity: - Walk around [...] call this number to be connected to theCute Attack service. ECTOR [employer] AQUARIUM SPECIMENS documented in this encounter Medications at Time of Discharge Medication Sig Dispensed Refills Start Date End Date methotrexate (RHEUMATREX) 2.5 mg Tablet Take 2.5 mg by mouth every 7 days. 6 tabs on Sunday's losartan-hydroCHLOROthiaz abiel (HYZAAR) 100-12.5 mg tablet Take [...] ??? 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 NC LAP,LYMPH NODE BX N/A 07/09/2018 PELVIC LYMPH NODE STAGING DAVINCI SI performed by Micki Cadena MD at [facility] OR [facility] ??? NC LAP,RMV ADNEXAL STRUCTURE Bilateral 07/09/2018 SALPINGO-OOPHORECTOMY DAVINCI SI performed by Micki Cadena MD at [facility] OR [facility] ??? NC LAPAROSCOPY W TOT HYSTERECT UTERUS 250 GRAM OR LESS N/A 07/09/2018 HYSTERECTOMY TOTAL DAVINCI SI performed by Micki Cadena MD at [facility] ALLERGY: Allergies Allergen Reactions ??? Atorvastatin [...] with left additional views and ultrasound at [facility]- there is a new 16 mm irregular [...] pT1c. - Biomarker results: ??ER 8/8 (positive), NC 8/8 (positive), Her2 IHC 1+ (negative). 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 ASSESSMENT AND PLAN: ? Stage T1 N0 cancer of the left breast. For lump/SLN. Ita Vazquez MD, FACS 11/22/2018 9:28 AM [employer]ARI[employer] SPECIM[employer] documented in this encounter OR Notes * [...] Signed: Ita Vazquez MD 11/22/2018, 10:59 AM E[employer]ARI[employer] SPECIMENS documented in this encounter Miscellaneous Notes * Treatment Plan - Karol George, [facility] - 11/22/2018 7:52 AM CST IMAGING SERVICES- NUCLEAR MEDICINE MEDICATION and FLUSH PROTOCOL [facility] ORDERS ARE ENTERED ???PER PROTOCOL?? Enter the protocol in the patient???s electronic health record using Dyn[employer]: .imagingnucmedicineprotocol Communication Orders: o For ordered imaging [...] dosages with a range are determined by geophysical engineer calibration PROCEDURE DOSAGE Bone Marrow Imaging In-111 Chloride (Indium-111 Chloride), Administer 2mCi, IV, ONE TIME. OR Fz34x-Hkboda Colloid (Cpylzmwpjo21k-qddsnz colloid), Administer 8mCi Tc99m- sulfur colloid, IV, ONE TIME. Bone Pain Therapy - Quadramet Sm-153 (Samarium-153), Administer 1mCi/kg, IV, ONE TIME. Bone Pain Therapy - Xofigo Ra-223 Xofigo, Administer 1.49uCi/kg, IV, ONE TIME. AND Administer 5 mL sodium chloride, IV, repeated up to 5 times for a total of 30mL. Bone Scan Imaging (Whole Body, Limited, 3-Phase, or SPECT) Ek14h-EEV (Cptqiashrn17l-sndqobihv diphosphonate), Administer 25mCi, IV, ONE TIME. OR Yi78b-PDY (Fsyqsyvtps98m-kmbcoxumeovzarux diphosphonate), Administer 25mCi, IV, ONE TIME. Brain Imaging En23l-BEFY (Xwppxobyfd35m-mbfprgwowh-zoghqdud-dvftahlhyxd), Administer 20mCi, IV, ONE TIME. Brain SPECT Imaging Ut48c-IZPG (Wfhuddwpks09f-kedvdkvazs-iexdxmkz-xblwkxfrkmy), Administer 30mCi, IV, ONE TIME. OR Ld87c-QEAFR (Ceretec) (Iohllvyzee34a-wkycthfgwxsekqljsqc amine oxime), Administer 20mCi, IV, ONE TIME. OR Tl-201 (Thallium Chloride-201), Administer 6mCi, IV, ONE TIME. Cerebral Flow Imaging Xm72p-NWQI (Unypillxoa39o-bfywrdfrur-sxxeafys-mzybwrwixej), Administer 25mCi,IV, ONE TIME. Cisternogram Imaging In-111 DTPA (Indium-111 sailoittsv-wzuqdjxa-romywnaolfz), Neuroradiologist to administer 500uCi, Intrathecally, ONE TIME. Cystogram Imaging Tc-99m Pertechnetate (Xlqesfuzzc95g-ugpwndkhwwasn) Administer 1mCi Tn11n-dlfuzwawmudnp, intra-mcguire catheter, ONE TIME AND 1000ml NS, intra-mcguire catheter, ONE TIME. DaTscan Imaging I-123 Ioflupane (Iodine-123 ioflupane), Administer 5mCi, IV, ONE TIME. AND Administer SSKI (Potassium Iodide) drops, 130mg, Orally, ONE TIME one hour prior to radiopharmaceutical injection. Diuretic Renal Imaging Rf15y-GOMK (Pspsivmmjd83k-lvmwsweehg-ulucctpb-vuwdawdqlez), Administer 5mCi,IV, ONE TIME. AND Administer Lasix (furosemide), 1mg/kg, IV push over 2 minutes, ONE TIME. Maximum dose of 40mg. OR Jp80y-YDO6 (Fcvabmdxmp40c-lhlbsqhsxlxdvexljajqpjk), Administer 5mCi, IV, ONE TIME. AND Administer Lasix (furosemide), 1mg/kg, IV push over 2 minutes, ONE TIME. Maximum dose of 40mg. Diverticulum/Meckel's Imaging Tc-99m Pertechnetate (Idifcwaxou81v- pertechnetate), Administer 15mCi,IV, ONE TIME. Esophageal Reflux Imaging Gm11b-Lasdoy Colloid (Tamztdgagy12w-mxschs colloid), Administer 1mCi in 1oz whole milk [...] TIME. Gastric Empty Imaging - Solid Meal Fg91e-Kivono Colloid (Fqznprdrxy43o-clchny colloid), Administer 500uCi in 4 oz egg beaters or in 1 package of cooked instant oatmeal, Orally, ONE TIME. Gastric Empty Imaging - Liquid Meal Ug61m-Pzjgfs Colloid (Rpaqsfweqk16x-khsnfg colloid), Forugutczo669fHz in 300mL whole milk, Orally, ONE TIME. GFR Imaging Yp12f-XXHX (Mokmhcasxk25k-bnfyhwqijo-mccacenj-lhozmcppeos), Administer 3mCi, IV, ONE TIME. GI Bleed Imaging Tc-99m Pertechnetate (Zoezpvcrfb46q-hmjosulkvevce), Administer 22mCi heparanized RBCs, IV, ONE TIME. Hemangioma Imaging NaPYP (sodium pyrophosphate) AND Tc-99m Pertechnetate (Cgrmakxmrp31l-cjklzsyqixhzi), Administer 6mg PYP, IV, ONE TIME. AND Administer 20mCi Hs47m-tatrphvoansyg, IV, ONE TIME. OR Tc-99m Pertechnetate (Oupfotmvxn61r-hjqvbgwjbpzfr), Administer 22mCi heparanized RBCs, IV, ONE TIME. Hepatic Artery Perfusion Imaging TC-99m MAA (Nlnfswbfth11x-lxyqhnxouujkfln albumin), InterventionalRadiologist to administer 3 mCi in three divided doses of 1 mCi each, intra-arterial via catheter, ONE TIME. Hepatobiliary Scan Imaging Tc-99m Mebrofenin (Flsaeipxbr04e-xjdnnqyxti), Administer 5 mCi IV, ONE TIME *For inpatients only, if bilirubin >5mg/dL, Administer 8 mCi IV, ONE TIME *For inpatients only, if bilirubin > 8mg/dL, consult nuclear medicine physician prior to administering radiopharmaceutical Hepatobiliary Scan with Ejection Fraction Imaging Tc-99m Mebrofenin (Cqgifbtrqt70n-qjkuemgdcr), Administer 5 mCi IV, ONE TIME. *For [...] Hepatobiliary Scan with Pre-Treatment Imaging Tc-99m Mebrofenin (Ndwxhwrjpw72c- mebrofenin), Administer 5 mCi IV, ONE TIME. [...] over 5 minutes. Hot PYP Bone Imaging Or45r-EfSHK (Ophcpaprur18w-cbpwyr pyrophosphate), Administer 15mCi, IV, ONE TIME. Hot PYP Cardiac Imaging Dx87n-LwPFY (Pyrxslxqmz70g-fwbumf pyrophosphate), Administer 15mCi, IV, ONETIME. Hot PYP Muscle Imaging Sy19o-ZeTCK (Jlgdrkkitp90y-bczujx pyrophosphate), Administer 20mCi, IV, ONE TIME. In-111 WBC Imaging In-111 Oxine (Indium-111 Oxine), Administer at least 400uCi, up to 800uCi, heparanized WBC, IV, ONE TIME. Lacrimal Imaging An36j-Pkgyln Colloid (Glncxepcji38f-xglbsp colloid), Administer 2 drops per eye ub124gLk/drop, Droplet, ONE TIME. Liver Imaging Zc23f-Limzqq Colloid (Nrkgejnofi63z-brhuuz colloid), Administer 6mCi, IV, ONE TIME. Lung Perfusion - Obese Patient Imaging Tc-99m MAA (Ixvxlamjet13a-ijyjkeovzvezzor albumin), Administer 5mCi for patients > 35BMI, IV, ONE TIME. Lung Perfusion - Obese Patient Imaging Tc-99m MAA (Mtbhlrmiqo41i- macroaggregated albumin),Administer 3mCi for patients > 35BMI, IV, ONE TIME. Lung Perfusion Imaging Tc-99m MAA (Dwingktzay11k-phjyplvwaugtflx albumin), Administer 4mCi, IV, ONETIME. Lung Perfusion - Patient Imaging Tc-99m MAA (Cbsudckofl73q- macroaggregated albumin), Administer 2mCi for patients , IV, ONE TIME. Lung Ventilation Imaging Xe-133 (Xenon-133), Administer at least 10 mCi, up to 30 mCi, inhalation, ONE TIME. Lymphoscintigraphy - Breast Cancer, Next Day Surgery Vu76w-Dxnstdrupj (Ersxwhcmns43k-fbsqobfuxx), Administer 2mCi in 2 divided doses of 1mCi each, intradermal, ONE TIME. AND Lidocaine 4% (L.M.X.4) applied 30 minutes prior to injections, TOPICAL, ONE TIME PRN. Lymphoscintigraphy - Breast Cancer, Same Day Surgery Jp56i-Rxjrhiitio (Cmafhsetwg53j-irwexxiefl), Administer 500uCi in 2 divided doses of 250uCi each, intradermal, ONE TIME. AND Lidocaine 4% (L.M.X.4) applied 30 minutes prior to injections, TOPICAL, ONE TIME PRN. Lymphoscintigraphy - Malignant Melanoma, Next Day Surgery Xb96j-Mcfvymowik (Vzqvnyoyge65u-thnljeaucq), Administer 2mCi in 4 divided doses of 0.5mCi each, intradermal, ONE TIME. AND Lidocaine 4% (L.M.X.4) applied 30 minutes prior to injections, TOPICAL, ONE TIME PRN. Lymphoscintigraphy - Malignant Melanoma, Same Day Surgery Zk79p-Jeqbstylkf (Ihirqznrhw59e-bbbbvgfraz), Administer 500uCi in 4 divided doses of 125uCi each, intradermal, ONE TIME. AND Lidocaine 4% (L.M.X.4) applied 30 minutes prior to injections, TOPICAL, ONE TIME PRN. Lymphoscintigraphy - Malignant Melanoma, Small Body Area, Next Day Surgery Vg43y-Judzcafral (Xffjoipoxc93c-rwswlahqzv), Administer 2mCi in 2 divided doses of 1mCi each, intradermal, ONE TIME. AND Lidocaine 4% (L.M.X.4) applied 30 minutes prior to injections, TOPICAL, ONE TIME PRN. Lymphoscintigraphy - Malignant Melanoma, Small Body Area, Same Day Surgery Vy38v-Tjhkxacfjq (Olxovpzaeg53z-fqhmytbhrf), Administer 500uCi in 2 divided doses of 250uCi each, intradermal, ONE TIME. AND Lidocaine 4% (L.M.X.4) applied 30 minutes prior to injections, TOPICAL, ONE TIME PRN. MIBG Imaging I-123 MIBG (Iodine-123 metaiodobenzylguandidine), Administer 10mCi, IV, ONE TIME. Microsphere Mapping Tc-99m MAA (Ksyuuqjjbe25d-ykqzqlcknemnvjo albumin), Interventional Radiologist to administer 4 mCi in two divided doses of 2 mCi each, intra-arterial via catheter, ONE TIME. MUGA/RVG Imaging Tc-99m Pertechnetate (Dadgalbehm02f-lvowxizqebpte), Administer 22mCi heparanized RBCs, IV, ONE TIME. Myocardial Dual Isotope Imaging Tl-201 (Thallium Chloride-201) AND Ar10d-Lsdifpx (Itwkqevnng07r-dhqizor), Administer 3mCi Tl-201for resting images, IV, ONE TIME AND Administer 8mCi Xz36i-tzibrjm for stress images, IV, ONE TIME. Myocardial Planar Imaging Yn29l-Mgdswcw (Aupezdaycm67m-Mswavzr), Administer 30mCi, IV, ONE TIME lisa images, ONE TIME for stress images. Myocardial Rest Imaging - SPECT Imaging Tl-201 (Thallium Chloride-201), Administer 4mCi, IV, ONE TIME. OR Wv88w-Zecbrvx (Zrfmxpsmha86j-Szmxfza), Administer 4mCi for patients <180 lbs, IV, ONE TIME. OR Uu78n-Kbtpbwa (Yoniqfqsns11t-Kmcttza), Administer 5mCi for patients 181-240 lbs, IV, ONE TIME. OR Jq14i-Goasaqq (Sckuhcprmx27y-Pbpwmub), Administer 6mCi for female patients 241- 265 lbs, IV, ONE TIME. OR Xt09i-Fzaheqk (Emkwcijifc16h-Flvslyb), Administer 6mCi for male patients 241-330 lbs, IV, ONE TIME. OR Ik98i-Pljfzke (Kyplropprv65d-Hetoclq), Administer 8mCi for female patients 266- 399 lbs, IV, ONE TIME. OR En35r-Ebjevnc (Cfdiszrlpd12k-Adfrajd), Administer 8mCi for male patients 331-299 lbs, IV, ONE TIME. Myocardial Stress - SPECT Imaging Fw38o-Wvgphim (Bggshmuepz58d-Pfwnigr), Administer 12mCi for patients <180 lbs, IV, ONE TIME. OR Eg92h-Fimlyaz (Gqzghmgjwx32r-Aavdloc), Administer 15mCi for patients 181-240 lbs, IV, ONE TIME. OR Nw86l-Nhyhtzo (Ktmbbrcbui15l-Pkycaet), Administer 18mCi for female patients 241- 265 lbs, IV, ONE TIME. OR Fz38c-Gahaiqg (Pemktinejg06c-Eqcanbo), Administer 18mCi for male patients 241- 330 lbs, IV, ONE TIME. OR Pl20g-Onnhmwd (Hbabvtqkbg88f-Jqlxmhx), Administer 24mCi for female patients 266- 399 lbs, IV, ONE TIME. OR Js71a-Zbuspeh (Kxldwvszpq28p-Fbjxtqa), Administer 24mCi for male patients 331- 299 [...] Administer 6mCi, IV, ONE TIME. Parathyroid Imaging Vm36a-Zfyiokgvg (Vcsxjpxhel32o-kchsfyedm), Administer 20mCi, IV, ONE TIME. PET/CT Axumin F-18 Axumin (Uviodelt08-nwcxownuncmi), Administer 10mCi, IV, ONE TIME. PET/CT Bone Scan F18-NaF (Wkmxobzx09-dvulag fluoride), Administer 0.11mCi/kg with at least 8mCi, upto 14mCi, IV, ONE TIME. PET/CT Brain Imaging F18-FDG (Yippihib64-hwrrlenjnuwjhaxin), Administer 0.11mCi/kg with at least 8mCi, up to 14mCi, IV, ONE TIME. PET/CT Dotatate Imaging Ga-68 Dotatate (Gallium-68 Dotatate), Administer 5.4mCi, IV, ONE TIME. PET/CT Limited, Standard, or Whole-Body Oncology Imaging F18-FDG (Qpsakwkd44- flurodeoxyglucose), Administer 0.11mCi/kg with at least 8mCi, up to 14mCi, IV, ONE TIME. PET/CT Myocardial Scan F18-FDG (Fmglfaow84-legxiylkuugbusgny), Administer 0.11mCi/kg with at least 8mCi, up to 14mCi, IV, ONE TIME. Post GFR Imaging Nb21w-MIUF (Jrviuggxzh15h-yqfxsnfhzg-uxynckwo-wsgnqbfpbpn), Administer 12mCi, IV, ONE TIME. OR Sc91w-GMI0 (Ofpetyyvny10s-rymcianjavxinavfnlykfep), Administer 5mCi, IV, ONE TIME. PY Breath Test C-14 Urea (Carbon-14 Urea), Administer 1 uCi, Orally, ONE TIME. Renal Cortical Imaging Za23z-HIZM (Fhdbibfqvf16t-enhbpvvmemsqbhydmi acid), Administer 5mCi, IV, ONETIME. Renal Perfusion Imaging Fy63v-KAAH (Fplznoqogb50m-ugxjdwjiio-jceerngu-ghjdrghbsai), Administer 15mCi, IV, ONE TIME. OR Bv98n-RST2 (Lnmrydzcvf63h-rhjussqrudtgfjzldmyollj), Administer 5mCi, IV, ONE TIME. Renogram Imaging St79r-MXYH (Wnteapgcup50n-ynxjlnmutz-ngingdpy-ihhxkmepelb), Administer 5mCi, IV, ONE TIME. OR Zv86b-RKH9 (Hmjeewwcge88c-erfuuxxscsgqfajbivhfoag), Administer 5mCi, IV, ONE TIME. Renogram with Flow Imaging Td95c-BDHH (Rnnesfhcec98s-etoqaufypq-vxvttmrs-bxfvfnrmnsq), Administer 5mCi, IV, ONE TIME. OR Kp60p-ZXM0 (Rtpsrlpqip30n-tgwelctzyvmwruyojfvojkd), Administer 5mCi, IV, ONE TIME. Salivary Imaging Tc-99m Pertechnetate (Rrtoeqbiul65m-srcrcieffepjg), Administer 5mCi, Orally, ONE TIME. Shunt Patency Imaging Ex75u-KHWV (Frqjhpdnjq55j-nnfkhhluwj-yumptnzt-wpvaygtzaan), Neuroradiologist to administer 500uCi, intra-shunt reservoir, ONE TIME. Substernal Thyroid Imaging I-131 Na Iodide (Iodide-131 Na Iodide), Administer 100 uCi, Orally, ONE TIME. Mg98h-MGL Imaging Bk37m-Zyfwkaw (Pnmjkunjaf09a-Bjuntay), Administer at least 15mCi, up to 20mCi, heparanized WBC, IV, ONE TIME. Testicular Imaging Tc-99m Pertechnetate (Bivapiycpk63v-rupszkltbnach), Administer 15mCi, IV, ONE TIME. Thallium Whole Body Scan Imaging Tl-201 (Thallium Chloride-201), Administer 3mCi, IV, ONE TIME. Thyrogen Injection Thyrogen (thyrotopin natividad), Administer 0.9mg, deep IM, every 24 hours for 2 doses. Thyroid Imaging Tc-99m Pertechnetate (Bdeiwddorq84w-gyawbatmlwecw), Administer 5mCi, IV, ONE TIME. Thyroid Scan/Uptake I-123 Na Iodide (Iodide-123 Na Iodide), Administer at least 200 uCi, up to 400 uCi, Orally, ONE TIME. Thyroid Uptake I-131 Na Iodide (Iodide-131 Na Iodide), Administer at least 5 uCi, up to 25 uCi, Orally, ONE TIME. Vasotec/Enalaprilat Renal Imaging Ny19o-FGEH (Lywlrkbeal58n-vbfqrmufks-amtfxlge-syxcbpemnna), Administer 5mCi, IV, ONE TIME. AND Administer Enalaprilat (Vasotec) 0.04mg/kg with a maximum dose of 2.5mg. Dilute to 5mL total volumewith normal saline and infuse via infusion device over 5 minutes. OR Qf63y-PCJ2 (Yqxcdtkpqz53n-rknnpoaxpqustbemvdykycn), Administer 5mCi, IV, ONE TIME. AND Administer Enalaprilat (Vasotec) 0.04mg/kg with a maximum dose of 2.5mg. Dilute to 5mL total volumewith normal saline and infuse via infusion device over 5 minutes. Venography Imaging NaPYP (sodium pyrophosphate) AND Tc-99m Pertechnetate (Kpgoroovzx78f-ypmheaklujcuv), Administer 6mg NaPYP, IV, ONE TIME AND Administer 15mCi Ji83g-himdoogeqqaae, IV, ONE TIME. Whole Body I-131 Imaging I-131 Na Iodide (Iodide-131 Na Iodide), Administer 3 mCi, Orally, ONE TIME. Pediatric Procedures & Dosages: o Note: Radiopharmaceuticals dosages with a range are determined by geophysical engineer calibration PROCEDURE DOSAGE Bone Scan Imaging (Whole Body, Limited, 3-Phase, or SPECT) Wa31n-GSV (Sgejymwgri03w-asyczqwrf diphosphonate), Administer 0.25mCi/kg with at least 1mCi, up to 20mCi, IV, ONE TIME. Brain Imaging Xx01c-ONWN (Rkyubmkpxk35g-ixaxsfsrfl-kuvfhzej-xsucxmtuqek), Administer 0.8mCi/kg with at least 5mCi, up to 20mCi, IV, ONE TIME. Cisternogram Imaging In-111 DTPA (Indium-111 aglicymbju-jmpufdpt-jladthxeegp), Neuroradiologist to administer 4uCi/kg with at least 50uCi, up to 300uCi, Intrathecally, ONE TIME. Cystogram Imaging Tc-99m Pertechnetate (Vmvuymwafm46z-igbirykfrmsmt) Administer 1mCi, intra-mcguire catheter, ONE TIME AND Administer 500ml-1000ml NS, intra-mcguire catheter, ONE TIME. Diuretic Renal Imaging Gq89m-RLEC (Qjiixmstgs01c-puutmrpwta-wtipvzle-zsvudcivwan), Administer 0.2mCi/kg with at least 2.5mCi, up up55hEs , IV, ONE TIME. AND Administer Lasix (furosemide), 1mg/kg, up to 40mg, IV push over 2 minutes, ONE TIME. OR Bs15a-EOK0 (Boglxkcwkr49s-cwrzyqdtszcpdbmhufmyrqz), Administer 0.1mCi/kg with at least 1mCi, up to 5mCi, IV, ONE TIME. AND Administer Lasix (furosemide), 1mg/kg, up to 40mg, IV push over 2 minutes, ONE TIME. Diverticulum/Meckel's Imaging Tc-99m Pertechnetate (Aalvsqwokx29b- pertechnetate), Administer 0.05mCi/kg with at least 2.5mCi, up to 15mCi, IV, ONE TIME. Esophageal Reflux Imaging - <1yoa Os98y-Voucqd Colloid (Uplyiklton61f-uwnoyd colloid), Administer 0.1mCi for patients <3.5lbs, Orally, ONE TIME. OR Administer 0.2mCi for patients 3.5-6.5lbs, Orally, ONE TIME. OR Administer 0.3mCi for patients >6.5lbs, Orally, ONE TIME. *For all administrations, mix half of formula or breast milk feeding amount with radiopharmaceutical. Follow with remainder of feeding amount. Esophageal Reflux Imaging - >1yoa Eb32n-Fbsmba Colloid (Pyuuakfpzt23i-zcxsfg colloid), Administer 0.5mCi in 1 oz whole [...] TIME. Gastric Empty Imaging - Liquid Meal Rk25h-Mhxwsh Colloid (Rgxvlhguuy76l-vnvgvo colloid), Administer0.5mCi in 300mL whole milk or formula, Orally, ONE TIME. Gastric Empty Imaging - Solid Meal Uw33f-Eebifp Colloid (Gqerndgtml06j-ovmsur colloid), Administer 500uCi in 4 oz egg beaters or in 1 package of cooked instant oatmeal, Orally, ONE TIME. GI Bleed Imaging Tc-99m Pertechnetate (Ncbwkezqak12f-rucjaldekaphs), Administer 0.2mCi heparanized RBCs with at least 1mCi, up to 20mCi, IV, ONE TIME. Hemangioma Imaging Tc-99m Pertechnetate (Embktvpgdm04v-rfagrmdoyywdj), Administer 0.2mCi heparanized RBCs with at least 1mCi, up to 20mCi, IV, ONE TIME. Hepatobiliary Scan Imaging Tc-99m Mebrofenin (Dvgzwtzmmy07h-eyofzwbhoy), Administer .05mCi/kg with a at least 1mCi, up to 5mCi IV, ONE TIME Hepatobiliary Scan with Ejection Fraction Imaging Tc-99m Mebrofenin (Xevppgjphl96u-lkwnfrgukq), Administer .05mCi/kg with a at least 1mCi, up to 5mCi IV, ONE TIME AND For immediate use - Sincalide (Kinevac) 0.02 mcg/kg IV, ONE TIME, diluted with NS to a total infused volume of 30 mLs. Infuse via an infusion device over 30 minutes. Hepatobiliary Scan with Pre-Treatment Imaging Tc-99m Mebrofenin (Xpgxszusgt63w- mebrofenin), Administer 0.05mCi/kg with a at least 1mCi, up to 5mCi IV, ONE TIME AND For immediate use - Sincalide (Kinevac) 0.01 mcg/kg IV, ONE TIME, diluted with NS to a total infused volume of 5 mLs., IV push over 5 minutes. Hot PYP Bone Imaging Bq15f-HyFDF (Bzlxgoilep01x-cjqztb pyrophosphate), Administer 0.6mCi/kg, with at least 2.5mCi, up to 20mCi IV, ONE TIME. Hot PYP Cardiac Imaging Cs09t-CjCRG (Oncfchwcqi90y-tkdqzp pyrophosphate), Administer 0.6mCi/kg, with at least 2.5mCi, up to 20mCi IV, ONE TIME. In-111 WBC Imaging In-111 Oxine (Indium-111 Oxine), Administer 20uCi/kg with at least 50uCi, up to 300uCi, heparanized WBC, IV, ONE TIME. Liver/Spleen Imaging Tn19n-Cjqgix Colloid (Bodpndytte48b-ysagkv colloid), Administer 0.05mCi/kg with at least 0.4mCi, up to 3mCi, IV, ONE TIME. Lung Perfusion Imaging Tc-99m MAA (Ayrggwuuay88e-khdfkoycerjvtvw albumin), Administer 0.03mCi/kg, with at least 0.4mCi, [...] Orally, ONE TIME. MUGA/RVG Imaging Tc-99m Pertechnetate (Kpssmxnqgw34l-gvvksmddegaxg), Administer 0.2mCi/kg heparanized RBCs with at least 1mCi, up to 20mCi, IV, ONE TIME. Myocardial Rest Imaging - SPECT Imaging Mw07l-Sqisdwe (Bhdsyzoooj87q-Mbpdiux), Administer at least 5.18mCi, up to 6.08mCi, IV, ONE TIME. Consult authorized user prior to administration. Dosage based on Trujillo's Rule (age+1/age+7)*8 Myocardial Stress Imaging - SPECT Imaging Co78t-Ynbhiwp (Wuecoqnzyv73j-Vrlqqvr), Administer at least 15.5mCi, up to 18.24mCi, [...] to 6mCi, IV, ONE TIME. Parathyroid Imaging Bn63q-Qtswjedca (Lrjsqrnkcc61t-yfmirzumj), Administer at least 5.18mCi, up to 6.08mCi, IV, ONE TIME. Dosage based on Trujillo's Rule (age+1/age+7)*8 PET/CT Brain Imaging F18-FDG (Djfahiiv17-lvbzczxtyxoelrbjf), Administer 0.11mCi/kg with at least 1mCi, up to 10mCi, IV, ONE TIME. PET/CT Limited, Standard, or Whole-Body Oncology Imaging F18-FDG (Kuyddals24- flurodeoxyglucose), Administer 0.11mCi/kg with at least 2mCi, up to 10mCi, IV, ONE TIME. Renal Cortical Imaging Eo94q-JZFJ (Isquoxwdpl20s-uitkbkgdcfmkqkmztr acid), Administer 0.05mCi/kg with at least 0.5mCi, up to 2.5mCi, IV, ONE TIME. Renogram Imaging Hw75e-NKEX (Zeyqvwvigr93z-qopumexkff-tcbwbkem-dvtgvcfatza), Administer 0.2mCi/kg with at least 2.5mCi, up [id number] OR Ay46d-EZE6 (Ousnwyrtfs66f-bjabxrbkhfrpcovhpkdaepk), Administer 0.1mCi/kg with at least 1mCi, up to 5mCi, IV, ONE TIME. Renogram with Flow Imaging La99s-NQYL (Pwkqpktzwt85d-zigqicqjqd-aagtoxxx-lbkniqddsnw), Administer 0.2mCi/kg with at least 2.5mCi, up [id number] OR Oi14k-CNI7 (Uvoehklufa92x-rfxxqhemnwglcdyiccahkvw), Administer 0.1mCi/kg with at least 1mCi, up to 5mCi, IV, ONE TIME. Hk37q-OIH Imaging Ij82a-Roafmsi (Ovhhrokgdm80v-Mosuhah), Administer 0.6mCi/kg heparanized WBC, IV, ONE TIME. Confirm calculated dose with nuclear medicine physician prior to injection. Testicular Imaging Tc-99m Pertechnetate (Mmkrtcnqvp61d-ywdwbjnjgxytv), Administer 0.4mCi/kg with atleast 5mCi, up to 15mCi, IV, ONE TIME. Thyroid Imaging Tc-99m Pertechnetate (Ntrbsfhmic36c-emjkccjwdgncw), Administer 0.07mCi/kg with at least 1mCi, up to 5mCi, IV, ONE TIME. Thyroid Scan/Uptake I-123 Na Iodide (Iodide-123 Na Iodide), Administer at least 100uCi, up to 200uCi, Orally, ONE TIME. Thyroid Scan/Uptake I-131 Na Iodide (Iodide-131 Na Iodide), Administer at least 2uCi, up to 20uCi, Orally, ONE TIME. Vasotec/Enalaprilat Renal Imaging Cw72c-NIDZ (Zrydtrjibx37r-wsvdpwogut-ygnfewhp-scxjhnqtyoc), Administer 0.2mCi/kg with at least 2.5mCi, up [id number] AND Administer Enalaprilat (Vasotec) 0.03mg/kg, up to 2.5mg. Dilute to 5mL total volume with normal saline and infuse via infusion device over 5 minutes. OR Zb59g-MIL5 (Zmrarkxvow42v-dqzhvwrahzlzruhpplrtprw), Administer 0.1mCi/kg with at least 1mCi, up [...] and Pharmacy & Therapeutics Committee Date: 04/2018 [employer] documented in this encounter Plan of Treatment Upcoming Encounters Date Type Department Care Team (Late st Contact Info) Description 03/19/2025 10:45 AM CDT Appointment [facility] [address] [place] [address] [place] [phone] Caron Mohan MD [address] [place] [address] 03/19/2025 11:30 AM CDT Office Visit [facility] Oncology and Hematology [place] [address] [place] [address] Caron Mohan MD [address] [place], [place] [id number] [place] [address] [place] [address] documented as of this encounter Procedures Procedure Name Priority Date/Time Associated Diagnosis Comments MAMMO POST PROCEDURE MAMMO LEFT Routine 11/22/2018 10:43 AM [employer] Invasive ductal carcinoma of left breast PATHOLOGY Pathology 11/22/2018 10:15 AM [employer] Invasive ductal carcinoma of breast, left SENTINEL LYMPH NODE BIOPSY 11/22/2018 9:27 AM [employer] Invasive ductal carcinoma of breast, left BREAST LUMPECTOMY 11/22/2018 9:2 7 AM [employer] Invasive ductal carcinoma of breast, left MAMMO US GUIDED BREAST LOCAL Routine 11/22/2018 8:55 AM [employer] Invasive ductal carcinoma of left breast NM LYMPHOSCINTIGRAPHY Routine 11/22/2018 8:28 AM [employer] Invasive ductal carcinoma of left breast documented in this encounter Results * MAMMO POST PROCEDURE MAMMO LEFT (11/22/2018 10:43 AM [employer]) Anatomical Region Laterality Modality Breast Left Mammography 11/22/2018 7:37 AM [employer] Impressions 11/25/2018 1:04 PM [employer] IMPRESSION: Technically successful ultrasound-guided needle localization and surgical excision of the left breast as described above. DICTATION LOCATION: [facility] Narrative 11/25/2018 1:04 PM [facility] ULTRASOUND-GUIDED NEEDLE LOCALIZATION OF THE LEFT BREAST [...] left breast as described above. DICTATION LOCATION: [facility] Ita Vazquez MD MAMMO ORDERABLES * PATHOLOGY (11/22/2018 10:15 AM [employer]) CASE REPORT Surgical Pathology Report ? Case: [id number] ? Authorizing Provider: ??Ita Vazquez MD ? Collected: ? 11/22/2018 10:15 AM ? Ordering Location: ? [facility] ?? Received: ?11/22/2018 10:18 AM ? [facility] [facility] ? Pathologist: ? Joaquín Holcomb MD ? Specimens: ?? A) - Axilla, left, senitinal lymph nodes ? B) - Breast, left, lumpectomy short stitch superior long stitch lateral clip at deep ? margin ? C) - Breast, left, re-excision medial to deep margin stitch at new margin ? 3:27 PM [facility] [employer] [facility] ADDENDUM 1 A request for Oncotype Dx testing was received 12/11/[address] Mohan. This test will be performed on tissue from case [id number]. The case report, slides, and blocks for this case were retrieved from archives. The pathologist reviewed the original pathology report, examined candidate slides, and selected the most appropriate block(s). This selected material is forwarded to [facility] where the test will be performed. Results will be directly issued to the treating physician by the laboratory performing the test. 3:27 PM [facility] [employer] [facility] Addendum electronically signed by Joaquín Holcomb MD on 12/11/2018 at 3:27 PM FINAL DIAGNOSIS A. 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 B. Breast, left, lumpectomy: - Invasive ductal carcinoma, with the following features: 1. Size: 1.3 cm. 2. Donnie score: 6/9. 3. Margins: Invasive carcinoma 3 mm from the posterior margin. 4. Lymphvascular invasion: Not definitively identified. 5. Stage: pT1c snN1mi. 6. Biomarkers: HER2 1+ (ER and NC positive performed previously on [id number]). - Radial scar. - Intraductal papilloma (0.1 [...] breast tissue, negative for carcinoma. 3:27 PM [facility] IMEN DESCRIPTION (A) Axilla, left, sentinel lymph nodes, collected at 1015; (B) breast, left, lumpectomy, short stitch superior, long stitch lateral, clip at deep margin, collected at 1023; (C) breast, left, re-excision medial to deep margin, stitch at new margin, collected at 1025. 3:27 PM [facility] OPERATIVE PROCEDURE Left breast lumpectomy with needle localization at 0830 am. Nuclear medicine at 0745, needle localization at 0830. Left axillary sentinel lymph node biopsy with nuclear medicine at 0745 am. 3:27 PM [facility] CLINICAL DIAGNOSIS Invasive ductal carcinoma of breast, left (C50.912). 3:27 PM [facility] GROSS DESCRIPTION The specimen is received in [...] 2; B5 to B8-level 3; B9 to I85-ouwfx 4; B13 to I23-zudtz 5; B17 to V70-egynk 6; B21 and 22-inferior margin perpendicularly sectioned. [...] formalin at 1100. MANISH/sania 9 3:27 PM [facility] MICROSCOPIC DESCRIPTION Slides are received labeled [id number] and Jolene Cedillo. The left axillary sentinel [...] is negative for carcinoma. 9 3:27 PM [facility]OR[facility] SERVICES [facility] SPECIAL AND IMMUNOPEROXIDASE STAINS Diagnosis: Invasive [...] negativity on decalcified tissues. 9 3:27 PM [facility] SYNOPTIC REPORT INVASIVE CARCINOMA OF THE BREAST [...] Lymph Nodes Examined: ?2 ? Number of Redfield Nodes Examined: ?2 PATHOLOGIC STAGE CLASSIFICATION (pTNM, AJCC 8th Edition) ?? TNM Descriptors: ?Not applicable ?? Primary Tumor (Invasive Carcinoma) (pT): ?pT1c ?? Regional Lymph Nodes (pN): ? Modifier: ?(sn): Only sentinel node(s) evaluated. ? Category (pN): ?pN1mi 9 3:27 PM [employer] [facility] COMMENT Special stain and/or immunohistochemical results are interpreted with controls that demonstrate appropriate staining reactions. Note on use of immunocytochemistry reagents: This test was developed and its performance characteristic determined by [facility], Department of Laboratory Medicine. It has [...] WF, WB and WH are performed by [address], [address]. All other case types are performed by [address] [facility], [address]. 9 3:27 PM [employer] [facility] Tissue (Axilla, left) Collection / Unknown 11/22/2018 10:15 AM [employer] 11/22/2018 10:18 AM [employer] Tissue specimen (specimen) LEFT BREAST STRUCTURE / Unknown 11/22/2018 10:23 AM [employer] 11/22/2018 10:35 AM [employer] Tissue specimen (specimen) LEFT BREAST STRUCTURE / Unknown 11/22/2018 10:25 AM [employer] 11/22/2018 10:55 AM [employer] Ita Vazquez MD PATHOLOGY/CYTOLOGY O RDERABLES [facility] [id number] [address] [place] [address] * MAMMO US GUIDE NEEDLE PLACEMENT (11/22/2018 8:55 AM [employer]) Anatomical Region Laterality Modality Breast N/A Ultrasound 11/22/2018 9:56 AM [employer] Impressions 11/25/2018 1:04 PM [employer] IMPRESSION: Technically successful ultrasound-guided needle localization and surgical excision of the left breast as described above. DICTATION LOCATION: [facility] 11/25/2018 1:04 PM [employer] ULTRASOUND-GUIDED NEEDLE LOCALIZATION OF THE LEFT BREAST [...] ORDERABLES * NM LYMPHOSCINTIGRAPHY (11/22/2018 8:28 AM [employer]) Anatomical Region Laterality Modality Nuclear Medicine 11/22/2018 8:28 AM [employer] Impressions 11/22/2018 8:33 AM [employer] IMPRESSION: ??Redfield lymph node identified and marked in the axilla. Dictated by Dr. Fortino Islas MD DICTATION LOCATION: 1 Narrative 11/22/2018 8:33 AM [employer] SENTINEL LYMPH NODE IMAGING DATE: 11/22/2018 8:28 AM HISTORY: Invasive ductal carcinoma of the left breast. PROCEDURE: Skin preparation with Betadine and alcohol. Technetium Lymphoseek was injected as 2 intradermal injections around the periareolar region. Redfield lymph node in the axilla identified and marked. RADIOPHARMACEUTICAL: 0.52 mCi 99m technetium Lymphoseek Procedure Note Fortino Islas MD - 11/22/2018 SENTINEL LYMPH NODE IMAGING DATE: 11/22/2018 8:28 AM HISTORY: Invasive ductal carcinoma of the left breast. PROCEDURE: Skin preparation with Betadine and alcohol. Technetium Lymphoseek was injected as 2 intradermal injections around the periareolar region. Redfield lymph node in the axilla identified and marked. RADIOPHARMACEUTICAL: 0.52 mCi 99m technetium Lymphoseek IMPRESSION: Redfield lymph node identified and marked in the axilla. Dictated by Dr. 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, estrogen receptor positive documented in this encounter Administered Medications Inactive Administered Medications - up to 3 most recent administrations Medication Order MAR Action Action Date Dose Rate Site diphenhydrAMINE (BENADRYL) injection 12.5 mg 12.5 mg, IV, POST-PROCEDURE ONCE PRN, 2 doses, Starting on Sun11/22/18 at 0914, Until Sun11/22/18 at 1427, Nausea/Emesis, Routine, PACU HYDROcodone-acetaminophen (NORCO) 5-325 mg per tablet 1 Tablet 1 Tablet, Oral, EVERY 4 HOURS PRN, Starting on Sun11/22/18 at 1139, Until Sun11/22/18 at 1427, Pain, Moderate, Routine Given 11/22/2018 11:55 AM [employer] 1 Tablet lactated Ringers solution IV, at 150 mL/hr, PRE-PROCEDURE CONTINUOUS, Starting on Sun11/22/18 at 0645, Until Sun11/22/18 at 1427, Routine, Pre-op Continue from Pre-Op 11/22/2018 9:38 AM [employer] New Bag 11/22/2018 9:18 AM [employer] 150 mL/hr lactated Ringers solution IV, at 125 mL/hr, POST-PROCEDURE CONTINUOUS, Starting on Sun11/22/18 at 0930, Until Sun11/22/18 at 1427, Routine, PACU lidocaine PF 1 % (XYLOCAINE MPF) injection 30 mL 30 mL, Infiltration, ONE TIME ONLY, 1 dose, On Sun11/22/18 at 0900, Routine Admin by Another Clinician (Comment) 11/22/2018 8:45 AM [employer] 4.5 mL Operative Site lidocaine PF 2 % (XYLOCAINE MPF) injection 0.3 mL 0.3 mL, Infiltration, PRE-PROCEDURE ONCE, Starting on Sun11/22/18 at 0642, Until Sun11/22/18 at 1427, Routine, Pre-op Given 11/22/2018 6:57 AM [employer] 0.3 mL methylene blue (UROLENE BLUE) 1 % (10 mg/mL) injection 50 mg 50 mg (5 mL), See Admin Instructions, ONE TIME ONLY, 1 dose, On Sun11/22/18 at 0900, Routine Admin by Another Clinician (Comment) 11/22/2018 8:45 AM [employer] 0.5 mg Operative Site morphine injection 2 [...] Started by Another Clinician 11/22/2018 8:45 AM [employer] 0.25 mEq Operative Site documented in this encounter Active and Recently Administered Medications Times are shown in [employer]. Scheduled Medication Order 11/20/2018 11/21/2018 11/22/2018 ceFAZolin [...] Sun11/22/18 at 0900, Routine 0845 (Admin by [facility] Clinician (Comment) - Provider: Vicky Lugo, RT [...] Sun11/22/18 at 0900, Routine 0845 (Admin by [facility] er Clinician (Comment) - Provider: Vicky Lugo, RT - Comment: Infiltrate administered by Fortino Coleman MD) sodium bicarbonate 4.2 % (0.5 mEq/mL) syringe 2.5 mEq (COMPLETED) 2.5 mEq, See Admin Instructions, ONE TIME ONLY, 1 dose, On Sun11/22/18 at 0900, Routine 0845 (Started by [facility] Clinician - Provider: Vicky Lugo, RT - [...] (Due)1227 (Stop ped - Provider: Mirella Malone, TAO) PRN Medication Order 11/20/2018 11/21/2018 11/22/2018 bupivacaine [...] Routine 1155 (Given - Provid er: Mirella Malone, ATO) isosulfan blue (LYMPHAZURIN) injection (CANCELED) INTRA-PROCEDURE PRN, [...] MD) documented in this encounter Care Teams Quantitative Consultant Relationship Specialty Start Date End Date Francisco Long MD PCP - General Internal Medicine 06/27/18 documented as of this encounter
--- OUTSIDE RECORDS SUMMARY | 2024-11-16 13:30 | XMS_ITS | Encounter Summary ---
Author Organization [facility] Address [address] [place] [address] Care Team Providers Care Tripe Finisher Name Role Phone Francisco Long MD Primary Care Provider Unavailabl e Encounter Details Date Type Department Care Team (Latest Contact Info) Description 09/03/2018 1:40 PM CDT - 09/03/2018 11:59 PM CDT Hospital Encounter [facility] [address] [place] [address] [facility], External Provider [address] [place] [address] Discharge Disposition: Home or Self Care Social [...] Info) Description 03/19/2025 10:45 AM CDT Appointment [facility] [address] [place] [address] Caron Mohan MD [address] [place] [address] 03/19/2025 11:30 AM CDT Office Visit [facility] Oncology and Hematology [place] [address] [place] [address] Caron Mohan MD [address] [place], [place] [phone] [place] [address] [place] [address] documented as of this encounter Procedures Procedure Name Priority Date/Time Associated Diagnosis Comments MAMMO PRIOR STUDY Routine 09/03/2018 1:4 0 PM CDT Follow up documented in this encounter Results * MAMMO PRIOR STUDY (09/03/2018 1:40 PM CDT) Narrative 09/17/2018 1:38 PM CDT This exam was auto finalized to allow images to be scanned to PACS. External Provider [facility] DIAGNOSTIC IMAGI NG ORDERABLES documented in this encounter Visit Diagnoses Diagnosis Follow up documented in this encounter Care Teams Tripe Finisher Relationship Specialty Start Date End Date Francisco Long MD PCP - General Internal Medicine 06/27/18 documented as of this encounter
--- OUTSIDE RECORDS SUMMARY | 2024-11-16 13:30 | XMS_ITS | Encounter Summary ---
Author Organization [facility] Address [address] [place] [address] Care Team Providers Care Circulation Sales Representative Name Role Phone Unavailable Primary Care Provider Unavailabl e Reason for Visit * Reason Comments Medication Refill Encounter Details Date Type Department Care Team (Late Contact Info) Description 05/13/2018 Refill [facility] Hepatology [address] [place] [address] Amari Chun MD [address] [facility] [address] [facility] Hepat[place] [address] Social History Tobacco Use Types Packs/Day Years Used Date Smoking Tobacco: Never Assessed Sex and Gender Information Value Date Recorded Sex Assigned at Not on file Gender Identity Not on file Sexual Orientation Not on file documented as of this encounter Miscellaneous Notes * Telephone Encounter - Amari Chun MD - 05/13/2018 2:53 PM CDT Could this be Bhavin Chun--I see no GI records * Telephone Encounter - Kenna Riley - 05/13/2018 1:35 PM CDT Please review and sign for Sue Pierson documented in this encounter Plan of Treatment Upcoming Encounters Date Type Department Care Team (Late st Contact Info) Description 03/19/2025 10:45 AM CDT Appointment [facility] [address] [place] [phone] Caron Mohan MD [address] [place] [phone] 03/19/2025 11:30 AM CDT Office Visit [facility] Oncology and Hematology [address] [place] [address] Caron Mohan MD [address] [facility] [place], [place] [phone] [place] [address] [address] [place] [address] documented as of this encounter Visit Diagnoses Not on filedocumented in this encounter
--- OUTSIDE RECORDS SUMMARY | 2024-11-16 13:30 | XMS_ITS | Encounter Summary ---
Author Organization [facility] Address [address] [place] [address] Care Team Providers Care Data Entry Technician Name Role Phone Francisco Long MD Primary Care Provider Unavailabl e Encounter Details Date Type Department Care Team (Latest Contact Info) Description 06/27/2018 1:30 PM CDT - 06/27/2018 11:59 PM CDT Hospital Encounter [facility] Xray [address] [place] [phone] [id number] Micki Cadena MD NO ADDRESS ON FILE Discharge Disposition: Home or Self Care Social [...] Description 03/19/2025 10:45 AM CDT Appointment [facility] [address] [place] [address] Caron Mohan MD [address] [place] [address] 03/19/2025 11:30 AM CDT Office Visit [facility] [address] [place] [address] Caron Mohan MD [address] [place], [place] [phone] [place] [address] [facility] [address] [place] [address] documented as of this encounter Procedures Procedure Name Priority Date/Time Associated Diagnosis Comments XR CHEST PA AND LATERAL 2 VW Routine 06/27/2018 1:40 PM CDT Endometrial sarcoma documented in this encounter Results * XR CHEST PA AND LATERAL 2 VW (06/27/2018 1:40 PM CDT) Anatomical Region Laterality Modality Chest Computed Radiogr aphy 06/27/2018 1:40 PM CDT Impressions 06/27/2018 2:01 PM CDT IMPRESSION: A large hiatal hernia. Otherwise, unremarkable study. DICTATION LOCATION: [facility]. Narrative 06/27/2018 2:01 PM CDT CHEST 2 VIEWS DATE: 06/27/2018 1:40 PM HISTORY: Endometrial sarcoma. Preop. COMPARISON: None. FINDINGS: No infiltrate, pneumothorax or pleural effusion is noted. The cardiac and mediastinal silhouettes are within normal limits. The visualized bony structures are unremarkable. A large hiatal hernia is seen. Procedure Note Randa Obrien MD - 06/27/2018 CHEST 2 VIEWS DATE: 06/27/2018 1:40 PM HISTORY: Endometrial sarcoma. Preop. COMPARISON: None. FINDINGS: No infiltrate, pneumothorax or pleural effusion is noted. The cardiac and mediastinal silhouettes are within normal limits. The visualized bony structures are unremarkable. A large hiatal hernia is seen. IMPRESSION: A large hiatal hernia. Otherwise, unremarkable study. DICTATION LOCATION: [facility]. Micki Cadena MD DIAGNOSTIC IMAGING O RDERABLES documented in this encounter Visit Diagnoses Diagnosis Endometrial sarcoma Malignant neoplasm of corpus uteri, except isthmus documented in this encounter Care Teams Data Entry Technician Relationship Specialty Start Date End Date Francisco Long MD PCP - General Internal Medicine 06/27/18 documented as of this encounter
--- OUTSIDE RECORDS SUMMARY | 2024-11-16 13:30 | XMS_ITS | Encounter Summary ---
Author Organization [facility] Address 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 Name Role Phone Francisco Long MD Primary Care Provider Unavailabl e Encounter Details Date Type Department Care Team (Latest Contact Info) Description 06/27/2018 10:55 AM CDT - 06/27/2018 11:59 PM CDT Hospital Encounter [facility] [address] [place] [address] Arron Cadena MD NO ADDRESS ON FILE Discharge Disposition: Home or Self Care Anesthesia Record Procedure Summary Procedure Name Responsible Anesthesiologist Anesthesia Start Time Anesthesia Stop Time HYSTERECTOMY TOTAL DAVINCI SI (Pelvis) Scar Brennan MD 07/09/18 0923 07/09/18 1327 Events Date Time Event Comment 07/09/2018 0801 0923 AN Equip Check Anesthesia eq uipment and materials checked in accordance with local policy. 0923 An Start 0923 An Start Data 0923 Pre-Induction Immediate pre- induction anesthetic assessment performed. Vital signs as noted on graphic. 0927 An Induction 0940 An Intubation Easy bag mask ventilation with oral airway Short TM distance, grade 2b view with DL. Difficulty passing ETT into glottis, Glidescope immediately unavailable. Able to visualize for bougie insertion, ETT placed over bougie. 0953 Anesthesia Ready 1001 an devon now 1317 An Extubation Emergence unev entful Awake, spontaneous respirations. Adequate muscle strength demonstrated Adequate tidal volume. Orapharynx suctioned. Extubated with positive pressure ventilation. 1323 an stop data 1327 An Stop 07/10/2018 0855 Follow-up Complete Meds * Agents No agents on file. * Blood No blood administrations on file. Lines, Drains, and Airways Type Details Placement Removal Peripheral IV Pre-Hospital Start: No; Orientation: Left; Location: Hand; Device: Angiocath; Gauge: 20 gauge; Insertion Attempts: 1; Patient Tolerance: tolerated well, appears comfortable 07/09/18 0740 by Pricilla Baum RN 07/10/18 0000 by Missy Conley RN Peripheral IV Pre-Hospital Start: No; Orientation: Right; Location: Hand; Device: Angiocath; Gauge: 18 gauge; Needle Length: 1.25 in length; Insertion Attempts: 1; Patient Tolerance: tolerated well; Pain Prevention: (GA); Power Injectable Compatible: Yes; Removal Indication: no longer indicated, removed per order; Removal Interventions: pressure dressing, catheter intact, direct pressure 07/09/18 0934 by Valeriy Talbot AA-C 07/10/18 0230 by Brenda Schrader RN Endotracheal Airway Type: ETT, Oral; Cuf f Pressure: minimal leak technique, minimal occluding volume, cuff inflated; Size: 7; Site: mouth; Attempts: 3; FOV: II (2b view); cm: 23; Device: Straight Blade, Bougie; Blade: 2; Secured: secured with tape; Cricoid: Yes; Verification: Auscultated bilateral breath sounds, Equal chest movement, Continuous waveform capnography 07/09/18 0940 by Valeriy Talbot AA-C 07/09/18 1317 by Valeriy Talbot AA-C Indwelling Urethral Catheter 07/09/18; 0951; No; Indwelling double lumen catheter; latex; 16 Fr; inserted; 1; 5; 10; 07/09/18; 1505 07/09/18 0951 by Audi Johnson RN 07/09/18 1505 by Gini Green RN Adult Incision 07/09/18; 1304; surgical incision; other (comment); abdomen; 07/11/18; 0533 07/09/18 1304 by Yamileth Uriarte RN 07/11/18 0533 by PROVIDER, DISCHARGE PATIENT Adult Incision 07/09/18; 1304; surgical incision; other (comment); vagina; 07/11/18; 0533 07/09/18 1304 by Yamileth Uriarte RN 07/11/18 0533 by PROVIDER, DISCHARGE PATIENT documented in this encounter Social History Tobacco [...] Sign Reading Time Taken Comments Blood Pressure 169/79 06/27/2018 11:59 AM CDT Pulse 68 06/27/2018 11:59 AM CDT Temperature - - Respiratory Rate - - Oxygen Saturation 98% 06/27/2018 11:59 AM CDT Inhaled Oxygen Concentration - - Weight 86.2 kg (190 lb) 06/27/2018 11:59 AM CDT Height 170.2 cm (5' 7 ) 06/27/2018 11:59 AM CDT Body Mass Index 29.76 06/27/2018 11:59 AM CDT documented in this encounter Medications at Time of Discharge Medication Sig Dispensed Refills Start Date End Date methotrexate (RHEUMATREX) 2.5 mg Tablet Take 2.5 mg by mouth every 7 days. 6 tabs on losartan-hydroCHLOROthiaz abiel (HYZAAR) 100-12.5 mg tablet Take 1 Tablet by mouth daily. 06/08/2021 documented as of this encounter OR Notes * Anesthesia PAT Evaluation - Sammi Diehl NP - 06/27/2018 12:42 PM CDT Pre-Procedure Anesthesiology Consultation and Evaluation (PACE) Service 06/27/2018 12:42 PM Name: Jolene Gordon Age: 72 y.o. Sex: female CSN: [id number] Procedure: HYSTERECTOMY TOTAL DAVINCI SI SALPINGO-OOPHORECTOMY DAVINCI SI PELVIC LYMPH NODE STAGING DAVINCI SI Surgeon: Surinder Allergies Allergen Reactions ??? Atorvastatin Muscle Pain ??? Codeine Nausea and Vomiting Reaction: Nausea, Pre-Surgery Instructions: Medication Instructions ??? methotrexate (RHEUMATREX) 2.5 mg Tablet Continue taking as prescribed ??? losartan-hydroCHLOROthiazide (HYZAAR) 100-12.5 mg tablet Take morning of surgery with sip of water ??? ferrous sulfate (Iron) 325 mg (65 mg iron) tablet Stop taking 1 week prior to surgery ? There are no active problems to display for this patient. Past Medical History: Diagnosis Date ??? Arthritis RA ??? At risk for obstructive sleep apnea STOP BANG 4 ??? Cancer 05/2018 UTERINE ??? Dyspnea on exertion ??? HTN (hypertension) ??? 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 HX CATARACT EXTRACTION, BILATERAL ??? HX KNEE REPLACEMENT 2014,2016 bilat Social History Substance Use Topics ??? Smoking status: Never Smoker ??? Smokeless tobacco: Never Used ??? Alcohol use Yes Comment: rare No family history on file. Previous Anesthesia Problems/Concerns: No anesthesia problems/complications History of PONV No Motion sickness: No Review of Systems Cardiovascular: negative for chest pain, chest pressure/discomfort, palpitations, shortness of breath/dyspnea, syncope. History of HTN. Patient cleans her home, does the laundry, does the shopping walking through the stores. Patient can climb the 1 FOS in her home without stopping. Respiratory: negative,Snoring - Yes, KAM - No Gastrointestinal: negative. Genitourinary:negative. Musculoskeletal: Joint pain. Neurological: negative Endocrine negative Hepatic: negative Hematologic: DVT following a knee replacement in 2016. Onc: Uterine cancer. PHYSICAL EXAM BP (!) 169/79 (Patient Position (BP): Sitting) Pulse 68 Ht 5' 7 (1.702 m) Wt 86.2 kg (190 lb) SpO2 98% BMI 29.76 kg/m?? Weight: Weight: 86.2 kg (190 lb) (06/27/18 1159) Height: Ht Readings from Last 1 Encounters: 06/27/18 5' 7 (1.702 m) BMI: Body mass index is 29.76 kg/m??. General Appearance: Alert, oriented, no acute distress and obese. Airway: normal range of motion; Airway Class: II (soft palate, uvula, fauces visible); Special Considerations Mouth Opening 2 Finger Breadth, small mouth Dentition: good and caps/crowns Lungs: clear to auscultation bilaterally, normal respiratory effort Heart: regular rate and rhythm, S1, S2 normal, no murmur, click, rub or gallop Neuro: alert, oriented x 3, no defects noted in general exam. Extremities: extremities normal, atraumatic, no cyanosis or edema LABS No results found for: WBC, MANUALWBC, HGB, HGBPOC, HCT, HCTPOC, PLT, MCV No results found for: NA, K, CL, CO2, CA, BUN, CREAT, GLUCOSE, ANIONGAP, BCRATIO No results found for: INR, PT, PROTIMEPOC No results found for: HCGURPOC, HCGQUALUR, HCGQUAL, HCGQUANT, HCGINTACT EK06/27/18 sinus rhythm Other Studies/Considerations: Cardiac studies 03/19/18 ECHO Conclusions: Moderate concentric left ventricular hypertrophy. Hyperdynamic left ventricular function. No focal wall motion abnormalities. Ejection fraction is visually estimated at 70 to 75 %. Mild mitral annular calcification. Trivial regurgitation of the mitral valve. Aortic cusps appear mildly sclerotic. Normal structure of the tricuspid valve. Trivial regurgitation in the tricuspid valve. Risks/Alternatives discussed. Questions solicited and answered. Yes Postop pain management discussed yes Smoking/Tobacco Counseling: None Recommendations:KAM precautions ATTESTATIONS (Not in a hospital admission) I obtained, updated or reviewed the patient's current medications including dosage, frequency, and route of administration. This information was obtained directly from the patient or pharmaceutical specialty representative or caregiver or another available healthcare resource and updated in [facility] EMR. History Smoking Status ??? Never Smoker Smokeless Tobacco ??? Never Used Patient screened for tobacco use and identified as a Non-User of tobacco. REPORT AND NECESSARY FOLLOW-UP History and physical performed in [facility]; tests (ECG, blood work) reviewed. Abnormal Results Found: no Further Testing or Evaluation Required: no Final [facility] Review: May proceed with procedure/surgery: yes Stop bang score is 4 Sammi Diehl NP * [place]-OP - Tiff Garcia RN - 06/27/2018 12:06 PM CDT Patient instructed to use the provided Chlorhexidine soap sponge(s) to clean the surgical site while in the shower the night before surgery and repeat same instructions the morning of surgery. Written detailed instructions reviewed with patient. Patient verbalized understanding of shower and soaps.Pt aware not to shave the surgical site.Patient instructed to stop taking vitamins and herbal supplements 7 days prior to scheduled surgery date. Patient also instructed to stop taking aspirin and NSAIDs (unless instructed otherwise by surgeon) 7 days prior to their scheduled surgery date. * [place]-OP - Tiff Garcia RN - 06/27/2018 12:02 PM CDT Images from the original note were not included. [facility] Pre-Procedure Instructions PACE PACE Name: Jolene Gordon Age: 72 y.o. Please report to the: [x] Surgery Center [] [facility] (2nd Floor) [] Other: Date of Procedure: 07/09/18 Arrive at the time your surgeon's office has instructed. If you are unsure of the arrival time, please call your surgeon's office 24-48 hours before your surgery to confirm. PLEASE NOTIFY your surgeon promptly if you begin to feel ill prior to your surgery. A cold, sore throat, fever, or flu may require postponing the surgery to another date for your safety. Please follow these important instructions PRE-PROCEDURE DIETARY INSTRUCTIONS ?? Do not eat solid food after midnight prior to your procedure. This includes but not limited to any milk product, puddings, and applesauce, candy , gum or mints. ?? Do not consume energy drinks containing high levels of caffeine after midnight prior to your procedure. ?? You may consume clear fluids up until 4 hours prior to your scheduled procedure time or 2 hours prior to arrival. ?? Limit the clear fluid intake to 12 fluid ounces or equivalent to a soda can. ?? Examples of clear liquids include: Water; Gatorade or similar clear fluids with electrolytes arepreferred; carbonated beverages such as soda or sparkling water; tea and black coffee (do not use milk or cream), clear fruit juices without pulp such as apple, cranberry or grape are allowed yet discouraged due to the acidity of the juices. WITHIN 24 HOURS PRIOR TO SURGERY ?? SHOWER AND SHAMPOO before bed and the morning of surgery (using provided soap if instructed or using anti-bacterial soap on operative site). Follow Dr. Cadena's Instructions. ?? DO NOT SHAVE near the surgical area for 24 hours prior. ?? After showering the morning of surgery, DO NOT APPLY body lotions, deodorants, colognes, lipstick, make-up, hairspray, mousse, gel, or powder. ?? DO NOT WEAR JEWELRY (rings, earrings, and body piercings), wigs, or hair pieces to the hospital. ?? SMOKING AND USE OF TOBACCO PRODUCTS We recommend patients abstain from smoking for as long as possible before and after surgery, but even quitting for a brief period is still beneficial. DO NOT SMOKE OR USE TOBACCO PRODUCTS 12 hours before arrival to hospital. ?? PLEASE DO NOT EAT anything--including GUM, CANDY, or MINTS--after midnight. You may BRUSH YOUR TEETH but do not swallow water. DAY OF SURGERY INSTRUCTIONS ?? YOU WILL NEED A RESPONSIBLE ADULT FAMILY MEMBER or FRIEND with YOU UPON DISCHARGE. YOUR SURGERY MAY BE CANCELLED IF YOU DO NOT HAVE A RESPONSIBLE ADULT WITH YOU AT DISCHARGE TO TAKE YOU HOME. ?? BRING PRESCRIBED INHALERS to the hospital with you but DO NOT BRING ANY OTHER MEDICATIONS to thespital (unless otherwise instructed). ?? WEAR comfortable, loose fitting clothes to the hospital that will fit over dressings after your surgery. ?? WEAR GLASSES instead of contact lenses to the hospital; bring a case if possible for glasses, dentures, and hearing aids as you will be asked to remove these items before your surgery. ?? BRING your insurance cards and telephone directory distributor driver's license or photo ID. DO NOT BRING VALUABLES or large amounts of bell with you to the hospital. ?? BRING any medical devices you need to the hospital, including CPAP, BIPAP, or WOUND VAC machines. ?? Surgical times are estimates and can vary depending on numerous factors. ?? Expect a minimum post-op recovery of 1 hour. The medical staff will provide updates to family and/or friends as appropriate. ADVANCED PLANNING FOR MEDICATION USE STOP Seven- fourteen (7) DAYS PRIOR TO SURGERY the use of all vitamins, herbal supplements, and other alternative substances. STOP Seven (7) DAYS PRIOR TO SURGERY the use of any UNPRESCRIBED Aspirin, Excedrin and NSAIDs whichinclude Motrin, Ibuprofen, Aleve, and Naprosyn. CURRENT MEDICATION LIST Pre-Surgery Instructions: Medication Instructions ??? methotrexate (RHEUMATREX) 2.5 mg Tablet Continue taking as prescribed ??? losartan-hydroCHLOROthiazide (HYZAAR) 100-12.5 mg tablet Take morning of surgery with sip of water ??? ferrous sulfate (Iron) 325 mg (65 mg iron) tablet Stop taking 1 week prior to surgery documented in this encounter Plan of Treatment Upcoming Encounters Date Type Department Care Team (Late st Contact Info) Description 03/19/2025 10:45 AM CDT Appointment [facility] [address] [place] [id number] Caron Mohan MD [address] [facility] [address] [place] [phone] 03/19/2025 11:30 AM CDT Office Visit [facility] Oncology and Hematology [address] [place] [address] Caron Mohan MD [address] [place] [phone] [place] [address] [facility] [address] [place] [address] Pending Results Name Type Priority Associated Diagnoses Date/Time EDUCATION ANESTHESIA (ADULT) - CRISTY External Education Routine 06/27/2018 3: 23 PM CDT Scheduled Orders Name Type Priority Associated Diagnoses Orde r Schedule PREPARE RED BLOOD CELLS Blood Bank Routine Once for 1 Occur rences starting 06/27/2018 until 06/27/2018 documented as of this encounter Procedures Procedure Name Priority Date/Time Associated Diagnosis Comments EKG 12-LEAD Routine 06/27/2018 11:52 AM CDT DIFFERENTIAL, MANUAL Stat 06/27/2018 11:51 AM CDT URINALYSIS WITH REFLEX CULTURE Routine 06/27/2018 11:51 AM CDT CBC WITH DIFFERENTIAL Stat 06/27/2018 11:51 AM CDT TYPE AND SCREEN Routine 06/27/2018 11:51 AM CDT CANCER ANTIGEN 125 Routine 06/27/2018 11 :51 AM CDT MAGNESIUM LEVEL Stat 06/27/2018 11:51 AM CDT COMPREHENSIVE METABOLIC PANEL Stat 06/27/2018 11:51 AM CDT documented in this encounter Results * EKG 12-LEAD (06/27/2018 11:52 AM CDT) 06/27/2018 11:5 2 AM CDT Narrative INTERFACE SYSTEM - 06/27/2018 12:25 PM CDT ? Stationary ECG Study ? [facility] ? Test Date: ?06/27/2018 11:52 AM Pat Name: ? JOLENE GORDON ? Department: ?? 46 ?Room: ? Gender: ? F ?Pit Inspector: ?? cs : ?1945 ? Requested By: ARRON Luis Order Number: [id number] ?Reading : ?? Michele Saunders ? Measurements Intervals ?Mason ? Rate: ? 60 ? P: ?63 CT: ? 198 ?QRS: ?-13 QRSD: ? 102 ?T: ?76 QT: ? 431 ? QTc: ?431 ? Interpretive Statements ? Sinus rhythm Electronically Signed On 06-27-2018 12:25:21 CDT by Michele Saunders Procedure Note Michele Saunders MD - 02/01/2022 Stationary ECG Study [facility] Test Date: 06/27/2018 11:52 AM Pat Name: JOLENE GORDON Department: 46 Room: Gender: F Pit Inspector: ana : 1945 Requested By: ARRON Luis Order Number: [id number] Aime MD: Michele Saunders Measurements Intervals Mason Rate: 60 P: 63 CT: 198 QRS: -13 QRSD: 102 T: 76 QT: 431 QTc: 431 Interpretive Statements Sinus rhythm Electronically Signed On 06-27-2018 12:25:21 CDT by Michele Saunders Arron Cadena MD ECG ORDERABLES Performing Organization Address City/[facility] Co de Phone Number INTERFACE SYSTEM Refer to clinic/hospital department * MANUAL DIFFERENTIAL (06/27/2018 11:51 AM CDT) PLATELET EST. Parameter N/A 06/27/20 18 2:22 PM CDT [facility] LABORATORY SERVICES - . [facility] ANISOCYTOSIS 1+ /hpf 06/27/2018 2:22 PM CDT [facility] LABORATORY SERVICES - [facility] POIKILOCYTES 1+ /hpf 06/27/2018 2:22 PM CDT [facility] LABORATORY SERVICES - [facility] HYPOCHROMIA 1+ /hpf 06/27/2018 2:22 PM CDT [facility] LABORATORY SERVICES - [facility] OVALOCYTES 1+ /hpf 06/27/2018 2:[address] [facility] ELEANOR CELLS 1+ /hpf 06/27/2018 2:22 PM CDT [facility] LABORATORY SERVICES - . [facility] CLUMPED PLATELETS Present 06/27/2018 2:22 PM CDT [facility] LABORATORY SERVICES - . [facility] Comment:Platelet clumps are present on smear review. Platelet count may be higher than indicated. Blood Venipuncture / Unknown 06/27/2018 11:51 AM CDT 06/27/2018 1:38 PM CDT Arron Cadena MD HEMATOLOGY ORDERABLE S COM Performing Organization Address [facility] Co de Phone Number [facility] LABORATORY SERVICES - [facility] CLIA# [id number] [address] [facility] [place] [address] * (ABNORMAL) CANCER ANTIGEN 125 (06/27/2018 11:51 AM CDT) CA 125 46.1(H) <35.0 U/mL 06/27/2018 2:52 PM CDT [facility] LABORATORY SERVICES [facility] Blood Venipuncture / Unknown 06/27/2018 11:51 AM CDT 06/27/2018 1:[address] [facility] LABORATORY [facility] - 06/27/2018 2:52 PM CDT The concentration of CA 125 in a given specimen, as determined by assays from different manufacturers, can vary because of differences in assay methods and reagent specificity. Values obtained with different assay methods cannot be used interchangeably. The testing method in use is the KAMILA Electrochemiluminescence immunoassay. Results cannot be interpreted as absolute evidence of the presence or absence of malignancy. Values should be interpreted with caution during . Arron Cadena MD CHEMISTRY ORDERABLES Performing Organization Address [facility]/ZIP Co de Phone Number [facility] [employer] [facility]# [id number] [address] [place] [address] * TYPE AND SCREEN (06/27/2018 11:51 AM CDT) ABO GROUP B 06/27/2018 3:02 PM CDT [facility] [employer] SERVICES -- [facility] RH (D) TYPE Positive 06/27/2018 3:[address] [facility] SERVICES -- [facility] ANTIBODY SCREEN Negative 06/27/2018 3:02 PM T [facility] [employer] SERVICES -- [facility] Blood Venipuncture / Unknown 06/27/2018 11:51 AM CDT 06/27/2018 1:38 PM CDT Arron Cadena MD BLOOD BANK ORDERABLE S Performing Organization Address [facility]/ZIP Co de Phone Number [facility] [employer] [facility]# [id number] [address] [place] [address] * (ABNORMAL) URINALYSIS WITH REFLEX CULTURE (06/27/2018 11:51 AM CDT) COLOR UA Pale Yellow Pale to Dark Yellow 06/27/2018 2:06 PM CDT [facility] LABORATORY SERVICES [facility] CLARITY UA Clear Clear 06/27/2018 2:06 PM CDT [facility] LABORATORY SERVICES [facility] SPECIFIC GRAVITY UA 1.015 1.003 - 1.035 06/27/2018 2:06 PM T [employer] LABORATORY SERVICES - [facility] PH UA 6.0 5.0 - 8.0 06/27/2018 2:06 PM T [employer] LABORATORY SERVICES - [facility] LEUKOCYTE ESTERASE UA Trace(A) Negative 06/27/2018 2:06 PM [facility] [employer] LABORATORY SERVICES - [facility] Comment: For patients with 'trace' results, consider ordering a culture and sensitivity if clinically indicated. NITRITE UA Negative Negative 06/27/2018 2:06 PM [facility] [employer] LABORATORY SERVICES - [facility] PROTEIN UA Negative Negative 06/27/2018 2:06 PM T [employer] LABORATORY SERVICES - [facility] GLUCOSE UA Negative Negative 06/27/2018 2:06 PM T [employer] LABORATORY SERVICES - [facility] KETONES UA Negative Negative 06/27/2018 2:06 PM [facility] [employer] LABORATORY SERVICES - [facility] UROBILINOGEN UA Normal <2.0 mg/dL 8 2:06 PM T [employer] LABORATORY SERVICES - [facility] BILIRUBIN UA Negative Negative 06/27/2018 2:06 PM T [employer] LABORATORY SERVICES - [facility] BLOOD UA Negative Negative 06/27/2018 2:06 PM T [employer] LABORATORY SERVICES - [facility] WBC UA 3-5(A) 0 - 2 /hpf 06/27/2018 2:06 PM CDT [employer] LABORATORY SERVICES - [facility] RBC UA 0-2 0 - 2 /hpf 06/27/2018 2:06 PM [facility] [employer] LABORATORY SERVICES - [facility] BACTERIA UA 1+(A) Negative /hpf 06/27/2018 2:06 PM [facility] [employer] LABORATORY SERVICES - [facility] EPITHELIAL CELLS, URINE 0-5 0 - 5 /hpf 06/27/2018 2:06 PM T [employer] LABORATORY SERVICES - [facility] Urine URINE SPECIMEN OBTAINED BY CLEAN CATCH PROCEDURE / Unknown Collection / Unknown 06/27/2018 11:51 AM CDT 06/27/2018 1:57 PM CDT Arron Cadena MD URINE ORDERABLES [facility] LABORATORY SERVICES - [facility] CLIA# [id number] [address] [place] [address] * MAGNESIUM LEVEL (06/27/2018 11:51 AM CDT) MAGNESIUM 2.2 1.6 - 2.4 mg/dL 06/27/2018 2:52 PM CDT [employer] LABORATORY SERVICES [facility] Blood Venipuncture / Unknown 06/27/2018 11:51 AM CDT 06/27/2018 1:38 PM CDT Arron Cadena MD CHEMISTRY ORDERABLES [facility] [employer] SERVICES [facility] CLIA# [id number] [address] [facility] [address] [address] * (ABNORMAL) COMPREHENSIVE METABOLIC PANEL (06/27/2018 11:51 AM CDT) Pathologist [facility] SODIUM 142 136 - 145 mmol/L 06/27/2018 2:52 PM CDT [facility] LABORATORY SERVICES [facility] POTASSIUM 4.5 3.5 - 5.0 mmol/L 06/27/2018 2:52 PM CDT [employer] SERVICES - . [facility] CHLORIDE 101 98 - 107 mmol/L 06/27/2018 2:52 PM CDT [employer] LABORATORY SERVICES - . [facility] CO2 24 22 - 29 mmol/L 06/27/2018 2:52 PM T [employer] LABORATORY SERVICES - . [facility] CALCIUM 9.7 8.6 - 10.2 mg/dL 06/27/2018 2:52 PM CDT [employer] LABORATORY SERVICES - . [place] BUN 19 8 - 23 mg/dL 06/27/2018 2:52 PM T [facility] LABORATORY SERVICES - . [facility] CREATININE 0.98(H) 0.51 - 0.95 mg/dL 06/27/2018 2:52 PM CDT [employer] LABORATORY SERVICES - [facility] MARCIA Comment: The GFR result is not clinically significant on patients <18 or >70 years of age. GLUCOSE 103(H) 74 - 99 mg/dL 06/27/2018 2:52 PM CDT [facility] - . [facility] TOTAL PROTEIN 7.1 6.7 - 8.6 g/dL 06/27/2018 2:52 PM CDT [facility] - [facility] ALBUMIN 4.3 3.5 - 5.2 g/dL 06/27/2018 2:52 PM [facility] - [facility] BILIRUBIN TOTAL 0.4 0.2 - 1.1 mg/dL 06/27/2018 2:52 PM [facility] - [facility] ALKALINE PHOSPHATASE 71 35 - 104 U/L 06/27/2018 2:52 PM [facility] AST 23 <33 U/L 06/27/2018 2:52 PM [facility] ALT 21 <34 U/L 06/27/2018 2:52 PM [facility] - [facility] GFR 56 mL/min/1.7 3 sq meter 06/27/2018 2:52 PM [facility] - [facility] Comment: eGFR has not been validated for use in the elderly (> 70 years of age), women, patients with serious co-morbid conditions, or persons with extremes of body size or muscle mass and should also be interpreted with caution in patients with acute kidney failure, dialysis dependent patients, patients reporting exceptional dietary intake (e.g. vegetarian diet, high protein diets, creatine supplementation), and patients with severe liver disease. Based on National Kidney Disease Education Program If patient is , please refer to the GFR result. GFR, >60 mL/min/1.7 3 sq meter 06/27/2018 2:52 PM [facility] ANION GAP 17(H) 8 - 16 mmol/L 06/27/2018 2:52 PM [facility] Blood Venipuncture / Unknown 06/27/2018 11:51 AM CDT 06/27/2018 1:38 PM CDT Narrative [facility] SERVICES - [facility] - 06/27/2018 2:52 PM CDT Samples containing indocyanine green cause interferences on Total and/or Direct Bilirubin and must not be measured. Arron Cadena MD CHEMISTRY ORDERABLES [facility] CLIA# [id number] 5 [facility] [place] [address] * (ABNORMAL) CBC WITH DIFFERENTIAL (06/27/2018 11:51 AM CDT) [facility] WBC 7.4 4.0 - 9.8 K/uL 06/27/2018 1:54 PM CDT [facility] - [facility] RBC 4.96(H) 3.90 - 4.90 M/uL 06/27/2018 1:54 PM CDT [facility] - [facility] HEMOGLOBIN 12.7 11.8 - 14.8 g/dL 06/27/2018 1:54 PM CDT [facility] - [facility] HEMATOCRIT 41.3 35.5 - 44.0 % 06/27/2018 1:54 PM CDT [facility] - [facility] MCV 83.3 82.0 - 99.0 fL 06/27/2018 1:54 PM CDT [facility] - [facility] MCH 25.6(L) 27.2 - 32.6 pg 06/27/2018 1:54 PM CDT [facility] - [facility] MCHC 30.8(L) 31.5 - 35.5 g/dL 06/27/2018 1:54 PM CDT [facility] - [facility] RDW 20.7(H) 11.5 - 14.5 % 06/27/2018 1:54 PM CDT [facility] - [facility] RDW-STDEV 61.0(H) 37.1 - 48.7 fL 06/27/2018 1:54 PM CDT [facility] - [facility] PLATELETS 223 140 - 350 K/uL 06/27/2018 1:54 PM CDT [facility] - [facility] MPV 9.8 9.3 - 12.4 fL 06/27/2018 1:54 PM CDT [facility] - . [facility] NEUTROPHILS 82 % 06/27/2018 1:54 PM CDT [facility] - . [facility] LYMPHOCYTES 8 % 06/27/2018 1:54 PM CDT [facility] - . [facility] MONOCYTES 7 % 06/27/2018 1:54 PM CDT [facility] - . [facility] EOSINOPHILS 2 % 06/27/2018 1:54 PM CDT [facility] - . [facility] BASOPHILS 0 % 06/27/2018 1:54 PM CDT [facility] IMMATURE GRANULOCYTES 1 % 06/27/2018 1:54 PM CDT [facility]ORY SERVICES - [facility] Comment:IG (Immature Granulo cyte) count includes Metamyelocytes, Myelocytes, and Promyelocytes NEUTROPHIL ABSOLUTE 6.06 1.90 - 7.00 K/uL 06/27/2018 1:54 PM CDT [facility]ORATORY SERVICES - . [facility] LYMPHOCYTE ABSOLUTE 0.60(L) 0.70 - 4.50 K/uL 06/27/2018 1:54 PM CDT [facility] LABORATORY SERVICES - . [facility] MONOCYTE ABSOLUTE 0.53 0.10 - 1.30 K/uL 06/27/2018 1:54 PM CDT [facility] LABORATORY SERVICES - . [facility] EOSINOPHIL ABSOLUTE 0.13 0.00 - 0.70 K/uL 06/27/2018 1:54 PM CDT [facility]ORATORY SERVICES - . [facility] BASOPHILS ABSOLUTE 0.03 0.00 - 0.20 K/uL 06/27/2018 1:54 PM CDT [facility] LABORATORY [facility] IMMATURE GRANULOCYTES ABSOLUTE 0.04(H) 0.00 - 0.03 K/uL 06/27/2018 1:54 PM CDT [facility] LABORATORY [facility] - [facility] Blood Venipuncture / Unknown 06/27/2018 11:51 AM CDT 06/27/2018 1:38 PM CDT Arron Cadena MD HEMATOLOGY ORDERABLE S [facility]# [id number] [address] [place] [address] documented in this encounter Visit Diagnoses Not on filedocumented in this encounter Care Teams Electric Screw Driver Operator Relationship Specialty Start Date End Date Francisco Long MD PCP - General Internal Medicine 06/27/18 documented as of this encounter
--- OUTSIDE RECORDS SUMMARY | 2024-11-16 13:30 | XMS_ITS | Encounter Summary ---
Author Organization [facility] Address [address] [place] [address] Care Team Providers Care Photo Producer Name Role Phone Francisco Long MD Primary Care Provider Unavailabl e Reason for Visit * Auth/Cert Specialty Diagnoses / Procedures Referred By Contlaura t Referred To Contact Diagnoses ENDOMETRIAL CA Micki Cadean MD NO ADDRESS ON FILE Referral ID Status Reason Start Date Expiration Date Visits Re quested Visits Authorized [id number] 06/24/2018 1 1 Encounter Details Date Type Department Care Team (Late st Contact Info) Description 07/09/2018 9:23 AM CDT Anesthesia Event [facility] Operating Room [address] [place] [address] Scar Brennan MD [address] [place] [address] Anesthesia Record Procedure Summary Procedure [...] An Stop 07/10/2018 0855 Follow-up Complete Meds Name Total cefOXitin (MEFOXIN) 2,000 mg in sodium c hloride 0.9% 50 mL IVPB (MBP) 2,000 mg cefOXitin (MEFOXIN) 2,000 mg in sodium c hloride 0.9% 50 mL IVPB (MBP) 2,000 mg propofol (DIPRIVAN) 10??mg/mL injection 200 mg diphenhydrAMINE (BENADRYL) 50 mg/mL inje ction 25 mg dexamethasone (DECADRON) 4 mg/mL injecti on 10 mg rocuronium (ZEMURON) 10 mg/mL 5 mL injec tion 70 mg lidocaine (XYLOCAINE) 2% syringe 60 mg morphine 10 mg/mL injection 10 mg midazolam PF (VERSED) 1 mg/mL injection 2 mg glycopyrrolate (ROBINUL) 0.2 mg/ mL inje ction 0.8 mg neostigmine (PROSTIGMINE) 4 mg/4 mL (1 m g/mL) injection 3 mg labetalol (NORMODYNE;TRANDATE) 5??mg/mL injection 5 mg lactated Ringers solution 1,200 mL * Agents Name Air Sevoflurane % [...] Valeriy Talbot AA-C 07/10/18 0230 by Brenda Schrader, RN Endotracheal Airway Type: ETT, Oral; Cuf [...] of this encounter OR Notes * Anesthesia Post-Op Follow-up Note - Sammi Diehl NP - 07/10/2018 8:55 AM CDT 07/10/2018 8:55 AM Jolene Cedillo No apparent Anesthesia related complications Sammi Diehl NP * Anesthesia Postprocedure Evaluation - Peter Curry MD - 07/09/2018 1:50 PM CDT Phase I Postanesthesia Evaluation Including Modified Alexus Score Patient seen and evaluated: Modified Alexus Score: Score: 8 (07/09/181348) COMMENTS: No apparent Anesthesia related complications RESPIRATORY FUNCTION: Respiration: able to breath and cough freely (07/09/181348) [2=able to breathe and cough freely, 1=dyspnea, limited breathing or tachypnea, 0=apnea or mechanicventilator] O2 Saturation: needs O2 inhalation to maintain O2 saturation greater than 90% (07/09/181348) [2=able to maintain O2 saturation greater than 92% on room air, 1=needs O2 inhalation to maintain O2 saturation greater than 90%, 0=O2 saturation less than 90% even with O2 supplement] Resp: 16 (07/09/181339)SpO2: 100 % (07/09/181339) CARDIOVASCULAR FUNCTION: Heart Rate: 63 bpm (07/09/181339) BP: (!) 148/86 (07/09/180) Circulation: BP within 20% of preanesthetic level (07/09/181348) [2=BP within 20% of preanesthetic level, 1=BP within 20-49% of preanesthetic level, 0=BP within 50%of preanesthetic level] MENTAL STATUS, NEURO, ACTIVITY: PATIENT PARTICIPATION IN EVALUATION:yes Consciousness: arousable on calling (07/09/181348) [2=fully awake, 1=arousable on calling, 0=not responding] Activity: able to move 4 extremities voluntarily or on command (07/09/181348) [2=able to move 4 extremities voluntarily or on command, 1=able to move 2 extremities voluntarily or on command, 0=unable to move extremities voluntarily or on command] TEMPERATURE: Temp: 36.4 ??C (07/09/18 1325) PAIN: Presence of Pain: denies pain/discomfort (07/09/18 132) NAUSEA AND VOMITING: no nausea and no vomiting POSTOPERATIVE HYDRATION: well hydrated Intake/Output Summary (Last 24 hours) at 07/09/18 1350 Last data filed at 07/09/18 1327 Gross per 24 hour Intake 1200 ml Output 575 ml Net 625 ml Peter Curry MD 07/09/2018 1:50 PM Post Anesthesia Evaluation Vitals: BP (!) 148/86 (BP Location: Right arm) Pulse 63 Temp 36.4 ??C (Temporal) Resp 16 Wt85.6 kg (188 lb 12.8 oz) SpO2 100% BMI 29.57 kg/m?? Pain Rating: Nausea/Vomiting: no nausea and no vomiting Post-Op hydration: well hydrated Respiratory function: no respiratory symptoms Airway patency: normal Cardiovascular function: Normal - Regular rate and rhythm Mental status, LOC: 0=alert; keenly responsive Patient participated in evaluation: yes Unanticipated Events: no Peter Curry MD * Anesthesia Handoff - Valeriy Talbot AA-C - 07/09/2018 1:26 PM CDT Post-Anesthetic transfer of care report elements to [...] and acknowledgement of understanding. Vital Signs: BP: 103/88 (07/09/2018 1:25 PM) Pulse: 62 (07/09/2018 1:25 PM) Heart Rate: 62 bpm (07/09/2018 1:25 PM) Temp: 36.4 ??C (07/09/2018 1:25 PM) Resp: 18 (07/09/2018 7:38 AM) SpO2: 100 % (07/09/2018 1:25 PM) 16rr 1:27 PM ALEX Steel * Anesthesia Preprocedure Evaluation - Scar Brennan MD - 07/09/2018 8:00 AM CDT Relevant Problems No relevant active problems Anesthesia Evaluation Anesthesia Plan ASA 2 General Pre-Anesthesia Evaluation - Long Form 07/09/2018 8:01 AM Name: Jolene Cedillo Age: 72 y.o. Sex: female CSN: [id number] Allergies Allergen Reactions ??? Atorvastatin Muscle Pain ??? Codeine Nausea and Vomiting Reaction: Nausea, Prescriptions Prior to Admission Medication Sig Dispense Refill Last Dose ??? methotrexate (RHEUMATREX) 2.5 mg Tablet Take 2.5 mg by mouth every 7 days 6 tabs on . Past Week at Unknown time ??? losartan-hydroCHLOROthiazide (HYZAAR) 100-12.5 mg tablet Take 1 Tablet by mouth daily. 07/08/2018 at Unknown time ??? ferrous sulfate (Iron) 325 mg (65 mg iron) tablet Take 325 mg by mouth daily. Unknown at Unknown time Current Facility-Administered Medications Medication Dose Route Frequency Provider Last Rate Last Dose ??? lactated Ringers solution IV Pre-Proc Continuous Micki Cadena MD 150 mL/hr at 07/09/18 0741 ??? cefOXitin (MEFOXIN) 2,000 mg in sodium chloride 0.9% 50 mL IVPB (MBP) 2,000 mg IV Pre-Proc OnceMuMicki brown MD There are no active problems to display [...] BILATERAL ??? 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 Smoking status: Never Smoker ??? Smokeless tobacco: Never Used ??? Alcohol use Yes Comment: rare No family history on file. Previous Anesthesia Problems/Concerns: No anesthesia problems/complications History of PONV No Review of Systems Cardiovascular: HTN Respiratory: negative Gastroenterology: negative PHYSICAL EXAM BP (!) 180/79 (BP Location: Right arm, Patient Position (BP): Sitting) Pulse 74 Temp 36.5 ??C (Temporal) Resp 18 Wt 85.6 kg (188 lb 12.8 oz) SpO2 98% BMI 29.57 kg/m?? Weight: Weight: 85.6 kg (188 lb 12.8 oz) (07/09/18 0721) Height: Ht Readings from Last 1 Encounters: 06/27/18 5' 7 (1.702 m) BMI: Body mass index is 29.57 kg/m??. Airway: normal range of motion: Airway Class: II (soft palate, uvula, fauces visible); None Lungs: clear to auscultation bilaterally, normal respiratory effort Heart: regular rate and rhythm, S1, S2 normal, no murmur, click, rub or gallop Neuro: alert, oriented x 3, no defects noted in general exam. Vascular Access: Peripheral Line LABS Lab Results Component Value Date/Time WBC 7.4 06/27/2018 11:51 AM HEMOGLOBIN 12.7 06/27/2018 11:51 AM HEMATOCRIT 41.3 06/27/2018 11:51 AM PLATELETS 223 06/27/2018 11:51 AM MCV 83.3 06/27/2018 11:51 AM Lab Results Component Value Date/Time SODIUM 142 06/27/2018 11:51 AM POTASSIUM 4.5 06/27/2018 11:51 AM CHLORIDE 101 06/27/2018 11:51 AM CO2 24 06/27/2018 11:51 AM CALCIUM 9.7 06/27/2018 11:51 AM BUN 19 06/27/2018 11:51 AM CREATININE 0.98 (H) 06/27/2018 11:51 AM POC CREATININE 0.90 06/27/2018 02:40 PM GLUCOSE 103 (H) 06/27/2018 11:51 AM ANION GAP 17 (H) 06/27/2018 11:51 AM No results found for: INR, PT, PROTIMEPOC No results found for: HCGURPOC, HCGQUALUR, HCGQUAL, HCGQUANT, HCGINTACT No results found for: GLUCPOC EKG: Other Studies/Considerations: None Postop pain management discussed yes Smoking/Tobacco Counseling: None Recommendations: None [facility] report reviewed. No interval changes in patient's history or review of systems.Yes ASA Physical Status: ASA 2 - Patient with mild systemic disease with no functional limitations I have seen and examined this patient and confirm that all data is current and accurate. Yes Choice of Anesthesia/Anesthesia Plan: Proceed, General and Routine Monitoring I have discussed the anesthetic options and the risks/benefits with the patient/family. Questions have been solicited and answered. Yes Scar Brennan MD documented in this encounter Miscellaneous Notes * Addendum Note - Sammi Diehl NP - 07/10/2018 8:55 AM CDT Addendum created 07/10/18 08 by Sammi Diehl NP Anesthesia Event edited, Sign clinical note documented in this encounter Plan of Treatment Upcoming Encounters Date Type Department Care Team (Late st Contact Info) Description 03/19/2025 10:[address] [facility] [address] [place] [phone] Caron Mohan MD [address] [facility] [address] [place] [phone] 03/19/2025 11:30 AM CDT Office Visit [facility] Oncology and Hematology [address] [place] [address] Caron Mohan MD [address] [facility] [address] [facility] [place], [place] [phone] [place] [address] [facility] [address] [place] [address] documented as of this encounter Visit Diagnoses Not on filedocumented in this encounter Administered Medications Inactive Administered Medications - up to 3 most recent administrations Medication Order MAR Action Action Date Dose Rate Site cefOXitin (MEFOXIN) 2,000 mg in sodium chloride 0.9% 50 mL IVPB (MBP) 2,000 mg, IV, PRE-PROCEDURE ONCE, 1 dose, Starting on Sun07/09/18 at 0730, Until Sun07/09/18 at 1023, Routine, Antibiotic Indication: Surgical prophylaxis New Bag 07/09/2018 9:53 AM CDT 2,000 mg cefOXitin (MEFOXIN) 2,000 mg in sodium chloride 0.9% 50 mL IVPB (MBP) 2,000 mg, IV, INTRA-PROCEDURE ONCE, 1 dose, Starting on Sun07/09/18 at 1202, Until Sun07/09/18 at 1255, Stat, Intra-op, Antibiotic Indication: Surgical prophylaxis New Bag 07/09/2018 12:25 PM CDT 2,000 mg dexamethasone (DECADRON) injection INTRA-PROCEDURE PRN, Starting on Sun07/09/18 at 0938, Until Sun07/09/18 at 1327, Routine, Anesthesia Intra-op Given 07/09/2018 9:38 AM CDT 10 mg diphenhydrAMINE (BENADRYL) injection INTRA-PROCEDURE PRN, Starting on Sun07/09/18 at 0938, Until Sun07/09/18 at 1327, Routine, Anesthesia Intra-op Given 07/09/2018 9:38 AM CDT 25 mg glycopyrrolate (ROBINUL) injection INTRA-PROCEDURE PRN, Starting on Sun07/09/18 at 1007, Until Sun07/09/18 at 1327, Routine, Anesthesia Intra-op Given 07/09/2018 1:01 PM CDT 0.6 mg Given 07/09/2018 10:07 AM CDT 0.2 mg labetalol (NORMODYNE;TRANDATE) 5 mg/mL injection INTRA-PROCEDURE PRN, Starting on Sun07/09/18 at 1314, Until Sun07/09/18 at 1327, Blood Pressure, Routine, Anesthesia Intra-op Given 07/09/2018 1:14 PM CDT 5 mg lactated Ringers solution IV, at 150 mL/hr, PRE-PROCEDURE CONTINUOUS, Starting on Sun07/09/18 at 0730, Until Sun07/09/18 at 1454, Routine New Bag 07/09/2018 12:40 PM CDT Continue from Pre-Op 07/09/2018 9:23 AM CDT New Bag 07/09/2018 7:41 AM CDT 150 mL/hr lidocaine (XYLOCAINE) 60 mg/3 mL (2 %) syringe INTRA-PROCEDURE PRN, Starting on Sun07/09/18 at 0927, Until Sun07/09/18 at 1327, Routine, Anesthesia Intra-op Given 07/09/2018 9:27 AM CDT 60 mg midazolam (PF) (VERSED) injection INTRA-PROCEDURE PRN, Starting on Sun07/09/18 at 0923, Until Sun07/09/18 at 1327, Routine, Anesthesia Intra-op Given 07/09/2018 9:23 AM CDT 2 mg morphine injection INTRA-PROCEDURE PRN, Starting on Sun07/09/18 at 0923, Until Sun07/09/18 at 1327, Routine, Anesthesia Intra-op Given 07/09/2018 9:29 AM CDT 5 mg Given 07/09/2018 9:23 AM CDT 5 mg neostigmine (PROSTIGMINE) 4 mg/4 mL (1 mg/mL) injection INTRA-PROCEDURE PRN, Starting on Sun07/09/18 at 1301, Until Sun07/09/18 at 1327, Routine, Anesthesia Intra-op Given 07/09/2018 1:01 PM CDT 3 mg propofol (DIPRIVAN) injection INTRA-PROCEDURE PRN, Starting on Sun07/09/18 at 0927, Until Sun07/09/18 at 1327, Anesthesia Intra-op Given 07/09/2018 11:40 AM CDT 50 mg Given 07/09/2018 9:27 AM CDT 150 mg rocuronium (ZEMURON) injection INTRA-PROCEDURE PRN, Starting on Sun07/09/18 at 0927, Until Sun07/09/18 at 1327, Routine, Anesthesia Intra-op Given 07/09/2018 11:40 AM CDT 10 mg Given 07/09/2018 11:10 AM CDT 10 mg Given 07/09/2018 10:30 AM CDT 10 mg documented in this encounter Care Teams Photo Producer Relationship Specialty Start Date End Date Francisco Long MD PCP - General Internal Medicine 06/27/18 documented as of this encounter
--- OUTSIDE RECORDS SUMMARY | 2024-11-16 13:30 | XMS_ITS | Encounter Summary ---
Author Organization [facility] Address [address] [place] [address] Care Team Providers Care Assembler Seat Name Role Phone Francisco Long MD Primary Care Provider Unavailabl e Encounter Details Date Type Department Care Team (Latest Contact Info) Description 09/11/2018 1:40 PM CDT - 09/11/2018 11:59 PM CDT Hospital Encounter [facility] [address] [place] [address] [facility], External Provider [address] [address] Discharge Disposition: Home or Self Care Social [...] Info) Description 03/19/2025 10:45 AM CDT Appointment [facility] [address] [place] [address] Caron Mohan MD [address] [place] [address] 03/19/2025 11:30 AM CDT Office Visit [facility] Oncology and Hematology Justin Long [address] [place] [address] Caron Mohan MD [address] [place], [place] [phone] [place] [address] [place] [address] documented as of this encounter Procedures Procedure Name Priority Date/Time Associated Diagnosis Comments MAMMO PRIOR STUDY Routine 09/11/2018 1:4 0 PM CDT Follow up documented in this encounter Results * MAMMO PRIOR STUDY (09/11/2018 1:40 PM CDT) Narrative 09/17/2018 1:38 PM CDT This exam was auto finalized to allow images to be scanned to PACS. External Provider [facility] DIAGNOSTIC IMAGI NG ORDERABLES documented in this encounter Visit Diagnoses Diagnosis Follow up documented in this encounter Care Teams Assembler Seat Relationship Specialty Start Date End Date Francisco Long MD PCP - General Internal Medicine 06/27/18 documented as of this encounter
--- OUTSIDE RECORDS SUMMARY | 2024-11-16 13:30 | XMS_ITS | Encounter Summary ---
Author Organization [facility] Address [address] [place] [address] Care Team Providers Care Cvir Tech Name Role Phone Francisco Long MD Primary Care Provider Unavailabl e Reason for Visit * Auth/Cert Specialty Diagnoses / Procedures Referred By Halima t Referred To Contact Diagnoses ENDOMETRIAL CA Micki King MD NO ADDRESS ON FILE Referral ID Status Reason Start Date Expiration Date Visits Re quested Visits Authorized [id number] 06/24/2018 1 1 Encounter Details Date Type Department Care Team (Late st Contact Info) Description 07/09/2018 8:44 AM CDT - 07/09/2018 12:44 PM CDT Surgery [facility] Operating Room [address] [place] [address] Micki King MD NO ADDRESS ON FILE HYSTERECTOMY TOTAL DAVINCI SI Surgery Details Date/Time Status Location OR Service Patient Class Case Class Case Type Trauma Case? 07/09/2018 8:44 AM Posted [facility] OR MAIN OR 24 Gynecology Surgical OP/Extended Care Elective No Panel 1 Procedure LRB Anes Op Region Wound Class Comments HYSTERECTOMY TOTAL DAVINCI SI N/A General Pelvis Clean Contaminated-II POSSIBLE OPEN, --NEEDS: FA, CUSA-- 23 HR SALPINGO-OOPHORECTOMY DAVINCI SI Bilateral General Pelvis Clean-I PELVIC LYMPH NODE STAGING DAVINCI SI N/A General Pelvis Clean Contaminated-II Surgeon Surgeon Role Service Panel Micki King MD Primary Gynecology 1 Case Notes MEDICARE B, CIG[employer], PP, CPT PENDING documented in this encounter Social History Tobacco [...] Sign Reading Time Taken Comments Blood Pressure 180/79 07/09/2018 7:38 AM CDT Pulse 74 07/09/2018 7:38 AM CDT Temperature 36.5 ??C (97.7 ??F) 07/09/2018 7:21 AM CD T Respiratory Rate 18 07/09/2018 7:38 AM CDT Oxygen Saturation 98% 07/09/2018 7:38 AM CDT Inhaled Oxygen Concentration - - Weight 85.6 kg (188 lb 12.8 oz) 07/09/2018 7:21 AM CDT Height - - Body Mass Index 29.57 06/27/2018 11:59 AM CDT documented in this encounter Discharge Summaries * Micki King MD - 07/13/2018 11:17 AM CDT Surgical Discharge Summary Patient Name Jolene Cedillo Age 72 y.o. Gender female Date of 1945 [facility] [id number] Attending Physician No att. providers found Discharging Physician Micki King MD PCP Francisco Long MD Admit Date 07/09/2018 Discharge Date 07/10/2018 Length of Stay LOS: 1 day Follow-up & Outstanding Issues/Tests: Follow-up with Micki King MD in 2 weeks. see discharge instructions for date and time. . Hospital Course: Jolene Cedillo is a 72 y.o. female who was admitted to (Insert hospital name) on 07/09/2018 and found to have a principle diagnosis of Endometrial cancer. Final stage IA G2 endometrioid type. Problems Addressed (Secondary Diagnoses): There are no hospital problems to display for this patient. Procedures performed: Procedure(s) (LRB): HYSTERECTOMY TOTAL DAVINCI SI (N/A) SALPINGO-OOPHORECTOMY DAVINCI SI (Bilateral) PELVIC LYMPH NODE STAGING DAVINCI SI (N/A) MEDICATIONS Prior to admission: No prescriptions prior to admission. Discharge medications and new prescriptions: Medication List START taking these medications enoxaparin 40 mg/0.4 mL injection Commonly known as: LOVENOX Inject 0.4 mL (40 mg) under the skin daily. Signed by: Micki King MD Quantity: 1.6 mL Refills: 0 oxyCODONE-acetaminophen 5-325 mg tablet Commonly known as: PERCOCET Take 1 Tablet by mouth every 4 hours as needed for pain. Max Daily Amount: 6 Tablets Signed by: Micki King MD Quantity: 42 Tablet Refills: 0 CONTINUE taking these medications Iron 325 mg (65 mg iron) tablet Take 325 mg by mouth daily. Refills: 0 Generic drug: ferrous sulfate losartan-hydroCHLOROthiazide 100-12.5 mg tablet Commonly known as: HYZAAR Take 1 Tablet by mouth daily. Refills: 0 methotrexate 2.5 mg Tablet Commonly known as: RHEUMATREX Take 2.5 mg by mouth every 7 days 6 tabs on . Refills: 0 Where to Get Your Medications These medications were sent to [address] [id number] Hours: Sunday-Sunday: 8 a.m. - 8 p.m., Sunday: 9 a.m. - 5 p.m., Sunday: 10 a.m. - 2 p.m. ?? enoxaparin 40 mg/0.4 mL injection Discharged Condition: improving Disposition: Home Patient Instructions: Activity: activity as tolerated and see discharge instructions. Diet is: regular diet. Wound Care: Keep wound clean and dry. Signed: Micki King MD 07/13/2018, 11:17 AM This discharge took less than 30 minutes of time to prepare documented in this encounter Discharge Instructions * Discharge Instructions* Micki King MD - 07/09/2018 9:31 AM CDT Images from the original note were not included. Hysterectomy After Surgery Instruction Pamphlet Hysterectomy A hysterectomy is a surgery that removes your uterus. Fibroids (benign tumors), cancer and endometriosis are some of the reasons that your uterus may need to be removed. Hysterectomy can relieve symptoms such as severe pain and bleeding. If you have cancer, it may save your life. The most common types of hysterectomy procedures that Dr. King performs: ??? daVinci assisted Hysterectomy: a slim, lighted tube and camera are inserted through small incisions in the abdomen. The daVinci guides the procedure in order for the uterus to be removed through the vagina. ??? Abdominal hysterectomy: done through an incision on your abdomen. Other surgeries ??? Myomectomy: a surgery in which non-cancerous (benign) tumors are removed from the wall of the uterus. The uterus itself is not removed. ??? Resection of mass: a surgery which removes an abnormal structure in the abdomen or pelvis. ??? Salpingo-Oophorectomy: the removal of the fallopian tube and ovary. This can be done unilaterally or bilaterally. This procedure can be done with either of the hysterectomy procedures mentioned above or by itself. ??? Lymph Node Dissection: Lymph nodes from the pelvis and around the abdominal aorta are taken forsampling in cancer cases in order to stage the cancer. Care Immediately After Surgery Pain Control You are encouraged to use pain medications so that you will be comfortable when you cough, deep breathe and walk. Ask your nurse for pain medicine before your pain becomes severe. Pain medicine worksbest if you take it before the pain gets out of control. Remember, nothing will make you pain free,but we want you to be as comfortable as possible. The doctor may order an abdominal binder. This isnot to protect your incision, but to support your incision while you cough, turn in bed and ambulate. Other ways to help relieve discomfort are supporting your incision with a pillow, deep breathing,frequent position changes and other relaxation techniques. Activity In addition to turning frequently, you will be assisted to sit on the side of the bed or in a chair. The day after surgery, your nurse, as well as family can assist you to walk in the room and in thehall. Please remember to continue to deep breathe and cough. Your physician may order a breathing exercise called an incentive spirometer to help with your deepbreaths. Coughing, deep breathing and leg exercises should be done every 2 hours after surgery. Special stockings or leg compression devices may be ordered to improve circulation and prevent blood clots. If you turn, cough, deep breathe and walk, you will get better faster. These activities help prevent pneumonia, blood clots and infections. Walking helps your bowels to begin to function again and decrease gas pains. Diet After your surgery your doctor will decide when to start you on a diet, either ice chips or clear liquids. You will gradually progress to regular foods. Eating small, frequent, well balanced meals (which include fruits, vegetables and meats) promotes healing and prevents constipation. Bowel sounds and passing gas are signs that your bowels are beginning to work. You may use laxatives or stool softeners as needed. Incision Care/Rochelle-care If you have an abdominal hysterectomy, your dressing will usually be removed a day or two after your surgery. Your incision may have lucy, glue or steri- strips. If you have a daVinci assisted hysterectomy, you will have small incisions on your abdomen. These incisions may be covered with glue or steri-strips. Sometimes thin white strips of tape (steri-strips) are placed across your incision. These usually fall off on their own. You do not have to cover your incision when you shower, the steri-strips may get wet. Do not rub your incision; just pat it dry. If you have lucy, they are usually removed 7-14 days after your surgery. Avoid friction with the wound. If your underwear or clothes rub, place a sanitary napkin over the area. You may have some vaginal spotting or bleeding after surgery, but this should not be heavy like a period. This spotting usually stops in 2-4 weeks. You may need to use a sanitary pad. Perineal hygiene is important to prevent infection. Always wipe from front to back. Change sanitary pads frequently. Cleanse your outer skin with soap and water. A squirt bottle may be used to assist in cleaning. Elimination You will have a mcguire catheter that drains urine from your bladder. This catheter is a tube that isput into the urethra (opening through which you pass urine). It is usually taken out the morning after surgery. Bowel function will gradually return over a couple of days. You may experience discomfort from gas due to sluggish bowel activity. Always answer truthfully when asked about passing gas. If you have not passed gas and are given a regular diet too early it may lead to a malfunction or blockage of thebowels. You are encouraged to use Colace (stool softener) while taking narcotic pain medications. You can buy this medication over the counter and follow the instructions on the bottle. Feelings Having a hysterectomy may affect your emotions. You may be relieved that you no longer have symptoms, but you may feel ???down?? about the changes in your body. Feelings such as anger, fear, nervousness, frustration or depression are normal. Share these feelings with your loved ones, friends, or health care team to help you cope as you recover. If you are concerned about the extent of your feelings or how long they are lasting, talk with your health care provider. If your ovaries were not removed, you will continue to make female hormones. If your ovaries were removed, you may have symptoms of menopause, such as hot flashes/flushes, vaginal dryness or mood swings. Talk with your health care provider about the possibility of hormone replacement therapy (HRT). Your surgery should not affect your ability to have sex or the way you or your partner feel while having sex. Ask your doctor when you may resume sexual activity. Dealing with Hormone Loss When your ovaries are removed or stop working, you lose your main source of the female hormone called estrogen. Your doctor may suggest hormone replacement therapy (HRT). HRT can relieve menopausal symptoms such as mood swings and hot flashes. Common side effects of HRT include fluid retention, breast tenderness, and nausea. Your doctor willdiscuss the side effects and risks of HRT. Remember in most cases of cancer, your doctor will advise you not to take HRT. Planning for Discharge Before you go home, here are some common questions and answers. If you need more information you may ask your doctor or nurse about the following activities: - Climb stairs Once daily - Lift No more than 5 pounds for 6 weeks - Do housework None for 6 weeks - Take a shower/bath Shower immediately/no bath for 6 weeks Wash with warm water, pat dry - Ride in a car/drive Immediately/no driving for 3-5 days or until you are no longer taking pain medicine - Sexual intercourse None for 6 weeks - Tampons, Douching None for 6 weeks - Go back to work 4 to 6 weeks - Go shopping As tolerated, but minimize time out of house - Do yard work None for 6 weeks - Strenuous exercise None for 6 to 8 weeks - Walks Short distances, gradually increase Call your doctor if you have any of the following problems: - Redness, drainage, swelling or skin separation at incision. - Temperature 101F degrees or above - Heavy vaginal bleeding, saturating 1-2 pads per hour or if you resume vaginal bleeding after you have already stopped - Foul smelling vaginal drainage - Persistent nausea, vomiting and/or diarrhea - Increase in frequency, urgency or burning with urination - Swelling and/or tenderness in thigh or calf - Disturbing emotional reactions, such as severe mood swings or depression Your doctor may give you a prescription pain reliever. These medicines can cause drowsiness. Do notdrive a car or operate electrical equipment while taking them. Other side effects can include nausea, vomiting, dizziness, skin rashes, or constipation. If any of these side effects become a problem for you, notify your physician. Constipation may be relieved by increased fluid, fiber intake and sto ol softeners. Please schedule a follow-up appointment (if you haven???t already done so) with your doctor as soonas you are discharged from the hospital. Generally, your doctor will want to see you two weeks after your surgery. Your follow up appointment is when you will receive your pathology report. YOUR POSTOPERATIVE FOLLOW UP APPOINTMENT WITH DR. KING IS SCHEDULED FOR 07/26/18 @ 1:45 PM Micki King MD documented in this encounter Medications at Time of Discharge Medication Sig Dispensed Refills Start Date End Date methotrexate (RHEUMATREX) 2.5 mg Tablet Take 2.5 mg by mouth every 7 days. 6 tabs on losartan-hydroCHLOROthiaz abiel (HYZAAR) 100-12.5 mg tablet Take 1 Tablet by mouth daily. 06/08/2021 documented as of this encounter Progress Notes * Micki King MD - 07/10/2018 1:54 PM CDT [employer]ING [employer]OR [employer] Doing well. Tolerating diet. No nausea or emesis. Ambulating and voiding without difficulty. Pain well controlled. Mild right shoulder pain. VS, I/O, labs noted. Abdomen soft +bs obese. incision clean, dry, intact. Lucy in place. Ext nontender no edema A/P POD #1. Discussed with patient operative findings. Path pending. Stable post op course. Home today.Instructions given and scripts written. Office in 2 weeks. Micki King MD [phone] (cell) * Brenda Schrader RN - 07/09/2018 11:43 PM CDT ADULT IV Flush Protocol [facility] ORDERS ARE ENTERED ???PER PROTOCOL?? Enter the protocol in the patient's electronic health record using smartphrase: .adultivflushprotocol NURSING ORDERS Ok to utilize existing central venous access (example: Implanted Port, PICC) unless otherwise directed by provider. (Exclusion: Hemodialysis line may not be accessed without order from provider) Local Anesthetic for IV Initiation Panel (18 and over) ORDER SET Local Anesthetic for use to initiate IV (orders to discontinue 24 hours from initiation) ??? Lidocaine 1% 0.3mL intradermal ONE TIME to numb area of IV catheter insertion or port access PRN ??? Lidocaine 4% (L.M.X.4) applied topically ONE TIME 15 minutes prior to IV catheter insertion PRN Peripheral IV (Peripheral and Midline Catheter) Flush Panel (18 yr and over) ORDER SET ??? Line care and maintenance o Sodium chloride 0.9% (normal saline) flush 5 mL every 12 hours when locked o Sodium chloride 0.9% (normal saline) flush 5 mL PRN before and after medication administration orto verify line patency ??? Carrier fluid (select most appropriate fluid for capability with medications) o Sodium chloride 0.9% (normal saline) 250 mL carrier bag. - Infuse 25 mL at a rate of IVPB administration to flush as needed to complete the IVPB and/or may keep rate at KVO (10mL/hr) to minimize frequent line interruption. o Dextrose 5% (D5W) 250 mL carrier bag - Infuse 25 mL at a rate of IVPB administration to flush as needed to complete the IVPB and/or may keep rate at KVO (10mL/hr) to minimize frequent line interruption. Central Lines (PICC, CVC, Implanted Port, Sheath/Introducer, 3rd lumen of Hemodialysis catheter) Flush Panel (18 yr and over) ?? Line care and maintenance o Sodium chloride 0.9% (normal saline) flush 10mL per lumen AND Heparin 10 units/mL 5mL per lumen every 12 hours ?? Sodium chloride 0.9% (normal saline) flush 10mL per lumen before and after medication administration or to verify line patency AND Heparin 10 units/mL 5 mL per lumen to lock. ?? Carrier fluid (select most appropriate fluid for capability with medications) o Sodium chloride 0.9% (normal saline) 250 mL carrier bag. - Infuse 25 mL at a rate of IVPB administration to flush as needed to complete the IVPB and/or may keep rate at KVO (10mL/hr) to minimize frequent line interruption. o Dextrose 5% (D5W) 250 mL carrier bag: carrier bag - Infuse 25 mL at a rate of IVPB administration to flush as needed to complete the IVPB and/or may keep rate at KVO (10mL/hr) to minimize frequent line interruption. Transducers- Hemodynamic Pressure Monitoring ??? Arterial Catheter, Pulmonary Artery Catheter, Central Venous Pressure, Intra-Aortic Balloon Pump Sodium chloride 0.9% (normal saline) to infuse continuously at 3mL/hr via pressure bag at 300 mmHgIntra-Aortic Balloon Pump ??? Heparin 2 unit/mL in normal saline to infuse continuously at 3 mL/hr via pressure bag at 300mmHg Adult (ONCOLOGY) ??? Alteplase (CATHFLO) Instill 2mg to affected lumen(s) to dwell in occluded lumen one time. Imitated: Nursing, Pharmacy, Physicians Reviewed: 12/2012; 05/2014; 07/2015; 08/2016; 05/2017 Revised: 12/2012; 07/2015; 08/2016 Approved by: Medical Executive Committee, Nursing Leadership, Pharmacy and Therapeutics Date: 05/2017 documented in this encounter H&P Notes * Micki King MD - 07/09/2018 9:16 AM CDT H&P in chart No new complaints or concerns NPO Completed bowel prep Signed consent No further questions or concerns from patient or family. ?? Patient ready for OR. Micki King MD documented in this encounter OR Notes * Operative Report - Micki King MD - 07/09/2018 9:28 AM CDT Operative Report [place], [place] Patient: Jolene Cedillo / 72 y.o. / female : 1945 Date: 07/09/2018 [facility]: [id number] Preoperative Diagnosis: Endometrial cancer, endometrioid type, grade 1 Postoperative Diagnosis: Same, final path pending. Procedure Performed: DAVINCI TLH, BSO, BPPLND Surgeon: Micki King MD Surgical Staff: Drafter Marine: Audi Johnson RN Scrub: Sharath Lubin ST First Assistant: Renato Palmer RN Anesthesia: General Estimated Blood Loss: 75 cc Fluids: 1000 cc LR Drains: mcguire, 500 cc UOP Complications: None Findings: Pelvic exam: exam limited by patient???s body habitus Vulva:?? Normal external genitalia without lesions, BUS glands:?? no lesions noted, Urethra: normal, Urethral meatus:?? Normal, Bladder:?? normal no cystocele, Vagina:?? clear without lesions, ??Cervix:?? grossly normal, no lesions, os parous. Uterus:?? retroverted, no masses, Adnexa:?? no masses, B ME:?? no intrapelvic masses, Anus: normal skin and sphincter. RVE:?? no parametrial, sidewall, recto-vaginal, or cul-de-sac disease.? uterus and cervix sounded to 8 cm. Intraperitoneal exam:?? no extrauterine spread of disease. Atrophic adnexa. Clinically normal appearing uterus. Clinically normal bilateral pelvic and para- aortic LNDs. Specimens: uterus, cervix, right and left FTs, ovaries, pelvic and para-aortic LNDs Implants: * No implants in log * Operative Technique: After informed consent was obtained and signed by the patient, she was taken to the operating room,placed in supine position.?? After establishment of general anesthesia, placed in the dorsal lithotomy position in low Spencer stirrups.?? Next, the perineum, vagina, and abdomen were prepped and draped in the usual sterile fashion for da Geeta procedure.?? A time-out was conducted by the operating room personal and all were in agreement for the procedure for this patient. Henny Clarenceer in place, SCDs in place.?? IV antibiotics were administered as ordered, and 2 units of blood were on hold in the blood bank.?? Attention was then turned to the perineum.?? Mcguire was placed using sterile technique.?? Baker speculum was placed in the vagina.?? Cervix was visualized and grasped with single-tooth tenaculum.?? Uterus and cervix were then sounded to 8 cm.?? The cervical os was dilated to #16 F dilator.?? The medium VCare was placed into the uterus and locked into position with the high school computer science teacher supplied locking clip.?? Attention was then turned to the abdomen.?? The sites for the 5 laparoscopic incisions were identified and marked with a marking pen.?? Supraumbilical incision was 3 fingerbreadths above the umbilicus. The medial incision were 4 FB lateral to the supraumbilical incision. The lateral incisions were 4 fingerbreadths lateral to the medial incisions.?? Supraumbilical incision was made.?? It was carried down through the subcutaneous tissue to the level of the fascia.?? The fascia was pierced with a Veress needle.?? Adequate placement of Veress needle into the peritoneal cavity was verified using the water drop syringe technique with free flow of fluid in to the peritoneal cavity.?? The pneumoperitoneum was created.?? After the creation of pneumoperitoneum, the Veress needle was removed and through this incision, laparoscopic camera port was placed without difficulty.?? Adequate placement without injury to adjacent organs was identified.?? The right and left medial and lateral ports were placed under direct visualization without any harm to adjacent organs.?? The left lateral most port was 8 mm air seal port.?? Next, inspection of the upper abdomen and pelvis revealed the above-mentioned findings.?? The patient was then placed in steep Trendelenburg position.?? The robot was advanced to the operative field.?? The robot was docked to the trocars.?? Instruments were placed into the peritoneal cavity.?? The primary surgeon then attended to the patient from the [address] console. The peritoneum overlying the aorta was incised with Bovie cautery.?? Lymphofatty tissue residing tothe right of the aorta and overlying the inferior vena cava was resected using sharp technique.?? The lymphofatty tissue was retrieved without difficulty.?? Cautery was used to obtain hemostasis and to clip off lymphatics.?? The right ureter was identified and retracted laterally.?? In a similar procedure, the lymphofatty tissue residing to the left of the aorta between the inferior mesenteric artery and the bifurcation was resected sharply.?? The lymphofatty tissue was resected without difficulty.?? It was handed off surgical field for final pathologic evaluation.?? Cautery was used to obtain hemostasis and clip off lymphatics.?? The operative spaces were irrigated.?? Excess fluid aspirated.?? The operative sites were inspected and were noted to be excellently hemostatic.?? Darrel was placed for additional hemostatic purposes.? Next, the bowel was packed out of the pelvis into the upper abdomen.?? The uterus was elevated withthe VCare device.?? The round ligaments were identified on the right and left side.?? They were cauterized and transected.?? The peritoneum overlying the psoas muscle was incised.?? The peritoneal incision was carried up parallel to the IP pedicle on the right and left side.?? The retroperitoneum was explored on the right and left side.?? The ureters were identified on the right and left side.?? The IP pedicles were isolated well away from the ureters on the right and left side.?? The IP pedicle was cauterized x3 and transected.?? The posterior peritoneum was skeletonized down to the uterine vessels on the right and left side.?? The bladder peritoneum was created.?? The bladder was dissected off the lower uterine segment, cervix, and upper portion of vagina using sharp technique.?? The bladder was dissected off without any difficulty.?? The posterior peritoneum was skeletonized along the rim of the VCare cup.?? Posterior colpotomy incision was made at 6 oclock.?? The uterosacral ligaments were encountered.?? They were cauterized and transected.?? The colpotomy incision was carried out from 6 to 9 o'clock and 6 to 3 o'clock to complete the colpotomy incision.?? The uterine vessels were isolated on the right and left side.?? They were cauterized and transected.?? The cardinal ligam ents were then cauterized and transected.?? The cervicovaginal junction was identified on the rightand left side.?? They were cauterized and transected.?? The anterior colpotomy incision was carriedout from 9 to 12 o'clock and 3 to 12 o'clock to complete the colpotomy incision.?? The uterus cervix, bilateral tubes and ovaries were handed off the surgical field for final pathologic evaluation. Attention was then turned to the pelvis.?? Next, the right pelvic lymph nodes removed from the bifurcation of the iliac vessels to the circumflex iliac vein.?? Lymphofatty tissue was retrieved using sharp technique.?? Cautery was used to obtain hemostasis and to clip off lymphatics.?? The lymph nodes overlying the external iliac artery vein superior to the obturator nerve in the obturator space were all resected without difficulty.?? The ureter was dissected away from the medial leaf of the peritoneum and retracted laterally, it was dissected away from the bifurcation of the iliac vessels down to the uterine tunnel.? Next, the left pelvic lymph nodes were resected.?? The left pelvic lymph node was removed from the bifurcation iliac vessels, circumflex iliac vein, Lymphofatty tissue surrounding the external iliac artery vein, and the obturator space overlying the obturator nerve were all resected sharply without any difficulty.?? The pelvic lymph nodes were handed off the surgical field for final pathologic diagnosis. Next, the vagina was closed in [id number]-td-xkxnwygrt direction, starting at 12 o'clock and working to 6 o'clock in a running nonlocking fashion using V-Loc 180 barbed suture.?? Excellent re-approximation and hemostasis was noted.?? Three reverse stitches were used to lock the suture end.?? At this time, the procedure was completed.?? The pelvis had excellent hemostatsis.?? The ureters were identified on the right and left side.?? They were noted to be vermiculating normally.?? The bilateral IP pedicles were noted to be hemostatic as were the right and left uterine vessels.?? Darrel was placedinto the pelvis to provide additional hemostasis at the operative sites. The instruments were removed from the peritoneal cavity.?? The robot was undocked and removed from the operative field.?? The patient was reversed out of trendelenburg.?? Pneumoperitoneum was released.?? The trocars were removed from the abdominal wall.?? The abdominal wall incisions were closed with 4-0 absorbable suture insubcuticular stitch.?? Sterile dressing was applied. Local anesthetic was given for postoperative pain relief. The patient was removed from dorsal lithotomy position and allowed to lay supine.?? She was reversed from general anesthesia, extubated in the operating room, and taken to the recovery room in stable condition.?? Sponge count, needle count, and instrument counts were correct x3 at the conclusion of the procedure. Micki King MD documented in this encounter Miscellaneous Notes * Care Plan - Missy Conley RN - 07/10/2018 5:00 PM CDT Jolene ambulates halls without difficulty. She tolerates general diet without nausea. Her surgicalpain is controlled with tramadol. She complains of neck discomfort and ice is helping. She voiding without difficulty. Jolene Cedillo will be discharged via wheelchair to home. Jolene Cedillois accompanied by spouse and will be transported via private vehicle Discharge education complete. Discharge packet information reviewed and given to patient . * Care Plan - Maureen Sarmiento RN - 07/10/2018 1:31 PM CDT Discharge Planning ??? Identify discharge needs upon admission and through discharge Progressing Initial Discharge Planning Assessment completed. Introductory Care Management letter given. Care Management visited with patient, and discussed Care Management role and discharge planning. Prior to admission, patient's functional level independent with activities of daily living, cooking, cleaning and drives Prior to admission, patient resided with at [address] [place] with basement with 3 steps to enter. Prior to admission, patient received no assistance, and had no services in home. Durable medical equipment at home includes WWR,and cane Patient has not had a stay at an acute care hospital in the last 30 days. Readmission Risk (patient becomes high risk with a score of 8 or greater) 0 Total Score Primary Emergency Contact: DOUGLAS CEDILLO, PCP verified as Francisco Long MD. Patient's insurance verified as Payor: MEDICARE / Plan: MEDICARE PART A AND B / Product Type: Medicare / The patient's preferred pharmacy [facility] [address] [place] [address] [address] Discussed discharge goals and possible discharge needs including home selfcare vs home with ivonnessist. Care Management contact information provided. Care Management will continue to follow and assist asneeded. Maureen Sarmiento RN/[facility] Management [phone] * Care Plan - Brenda Schrader RN - 07/10/2018 5:02 AM CDT Jolene's pain has been controlled with Tramadol. She did complain of bilateral shoulder pain, which she states is due to her rheumatoid arthritis. Ice packs applied with verbalized relief. VSS. Voiding spontaneously. Tolerating diet. Dressing with some dried drainage otherwise intact. at bedside. Sleeping between care. * Care Plan - Gini Green RN - 07/09/2018 7:54 PM CDT Jyotsna denied pain throughout shift. Jyotsna was able to tolerate a regular diet and denies nausea/vomiting. Mcguire removed this shift awaiting first post mcguire void. VSS. * Care Plan - Melisa Mathur RN - 07/09/2018 2:07 PM CDT Potential for pain related to surgical/procedural intervention Interventions: Assess level of pain/comfort utilizing verbal/nonverbal pain scales; assess culturalor alevism indicators attached to pain; administer pain medications as prescribed; utilize non-pharmacologic pain control and comfort measures Expected Outcome: Patient demonstrates and reports adequate pain control Outcome Met: denies pain at presentPotential for alteration in thermoregulatory, circulatory, respiratory fluid & electrolyte status Interventions: Perform ongoing physical assessment; maintenance of airway or mechanical ventilation; monitor level of consciousness; initiate safety measures; observe patient???s respiratory status and oxygen saturation; obtain measurements of ongoing hemodynamic parameters, cardiac rhythm, and temperature; monitor intake and output; inspect wound dressings and/or drain output; perform prescribedtherapeutic regimens, treatments and tests; document and/or communicate care given Expected Outcome: Patient will maintain functional status compatible with preoperative status Outcome Met: signed out by * Care Plan - Pricilla Baum RN - 07/09/2018 7:19 AM CDT Potential for anxiety related to surgical intervention Interventions: convey caring/supportive attitude; offer emotional support as needed; provide comfort measures (warm blanket, pillow, quiet environment); allow patient opportunity to verbalize concerns/fears/questions; explore coping behaviors; allow age-specific/special needs family support Expected Outcome: Patient will demonstrate decreased anxiety or adaptive coping strategies Outcome Met: comfort measures offered Potential for pain related to surgical/procedural intervention Interventions: Assess level of pain/comfort utilizing verbal/nonverbal pain scales; assess culturalor alevism indicators attached to pain; administer pain medications as prescribed; utilize non-pharmacologic pain control and comfort measures Expected Outcome: Patient demonstrates and reports adequate pain control Outcome Met: denies any pain documented in this encounter Plan of Treatment Upcoming Encounters Date Type Department Care Team (Late st Contact Info) Description 03/19/2025 10:[address] [facility] [address] [place] [id number] Caron Mohan MD [address] [place] [id number] 03/19/2025 11:30 AM CDT Office Visit [facility] On[facility]ology Justin Long [address] [place] [phone] Caron Mohan MD [address] [place] [address] [place] [address] [place] [address] documented as of this encounter Procedures Procedure Name Priority Date/Time Associated Diagnosis Comments TELEMETRY REPORT 07/11/2018 6:08 PM CDT CBC WITH DIFFERENTIAL Routine 07/10/2018 4:05 AM CDT BASIC METABOLIC PANEL Routine 07/10/2018 4:05 AM CDT PATHOLOGY Pathology 07/09/2018 10:23 AM CDT PELVIC LYMPHADENECTOMY ROBOTIC SI 07/09/2018 8:00 AM CDT ENDOMETRIAL CA Case Notes MEDICARE B, CIGNA, PP, CPT PENDING SALPINGO-OOPHORECTOMY ROBOTIC SI 07/09/2018 8:00 AM CDT ENDOMETRIAL CA Case Notes MEDICARE B, CIGNA, PP, CPT PENDING HYSTERECTOMY TOTAL ROBOTIC SI 07/09/2018 8:00 AM CDT ENDOMETRIAL CA Case Notes MEDICARE B, CIGNA, PP, CPT PENDING VERIFICATION BLOOD GROUP Stat 07/09/2018 7:19 AM CDT Encounter for blood typing PREPARE RED BLOOD CELLS Routine 06/27/2018 11:51 AM CDT PREPARE RED BLOOD CELLS Routine 06/27/2018 11:51 AM CDT documented in this encounter Results * TELEMETRY REPORT (07/11/2018 6:08 PM CDT) Provider Scanning ECG ORDERABLES * (ABNORMAL) BASIC METABOLIC PANEL (07/10/2018 4:05 AM CDT) SODIUM 137 136 - 145 mmol/L 07/10/2018 5:09 AM CDT [facility] [facility] POTASSIUM 3.8 3.5 - 5.0 mmol/L 07/10/2018 5:09 AM CDT [employer] [facility] - [facility] CHLORIDE 100 98 - 107 mmol/L 07/10/2018 5:09 AM CDT [employer] [facility] CO2 26 22 - 29 mmol/L 07/10/2018 5:09 AM [facility] CALCIUM 8.4(L) 8.6 - 10.2 mg/dL 07/10/2018 5:09 AM [facility] BUN 8 8 - 23 mg/dL 07/10/2018 5:09 AM [facility] CREATININE 0.73 0.51 - 0.95 mg/dL 07/10/2018 5:09 AM T [facility] [employer] [facility] Comment: The GFR result is not clinically significant on patients <18 or >70 years of age. GLUCOSE 140(H) 74 - 99 mg/dL 07/10/2018 5:09 AM [facility] [employer] [facility] GFR >60 mL/min/1.7 3 sq meter 07/10/2018 5:09 AM [facility] [employer] [facility] Comment: eGFR has not been validated [...] result. GFR, >60 mL/min/1.7 3 sq meter 07/10/2018 5:09 AM T [facility] [employer] [facility] ANION GAP 11 8 - 16 mmol/L 07/10/2018 5:09 AM T [facility] [employer] [facility] Blood Venipuncture / Unknown 07/10/2018 4:05 AM CDT 07/10/2018 4:39 AM CDT Mikci King MD CHEMISTRY ORDERABLES [facility] [employer] [facility] CLIA# [id number] [address] [facility] [address] * (ABNORMAL) CBC WITH DIFFERENTIAL (07/10/2018 4:05 AM CDT) WBC 10.1(H) 4.0 - 9.8 K/uL 07/10/2018 5:03 AM CDT [employer] - . [facility] RBC 4.25 3.90 - 4.90 M/uL 07/10/2018 5:03 AM CDT [facility] - . [facility] HEMOGLOBIN 10.9(L) 11.8 - 14.8 g/dL 07/10/2018 5:03 AM CDT [facility] - [facility] HEMATOCRIT 35.5 35.5 - 44.0 % 07/10/2018 5:03 AM CDT [facility] - . [facility] MCV 83.5 82.0 - 99.0 fL 07/10/2018 5:03 AM CDT [facility] - [facility] MCH 25.6(L) 27.2 - 32.6 pg 07/10/2018 5:03 AM CDT [facility] - [facility] MCHC 30.7(L) 31.5 - 35.5 g/dL 07/10/2018 5:03 AM CDT [facility] - [facility] RDW 19.5(H) 11.5 - 14.5 % 07/10/2018 5:03 AM CDT [facility] - [facility] RDW-STDEV 57.4(H) 37.1 - 48.7 fL 07/10/2018 5:03 AM CDT [facility] - . [facility] PLATELETS 205 140 - 350 K/uL 07/10/2018 5:03 AM CDT [facility] - . [facility] MPV 9.6 9.3 - 12.4 fL 07/10/2018 5:03 AM CDT [facility] - . [facility] NEUTROPHILS 85 % 07/10/2018 5:03 AM CDT [facility] LYMPHOCYTES 6 % 07/10/2018 5:03 AM CDT [facility] MONOCYTES 8 % 07/10/2018 5:03 AM CDT [facility] EOSINOPHILS 0 % 07/10/2018 5:03 AM CDT [facility] BASOPHILS 0 % 07/10/2018 5:03 AM CDT [facility] IMMATURE GRANULOCYTES 0 % 07/10/2018 5:03 AM CDT [facility] NEUTROPHIL ABSOLUTE 8.61(H) 1.90 - 7.00 K/uL 07/10/2018 5:03 AM CDT [facility] LABORATORY [facility] - . [facility] LYMPHOCYTE ABSOLUTE 0.60(L) 0.70 - 4.50 K/uL 07/10/2018 5:03 AM CDT [facility] - . [place] MONOCYTE ABSOLUTE 0.79 0.10 - 1.30 K/uL 07/10/2018 5:03 AM CDT [facility]ORY SERVICES - . [facility] EOSINOPHIL ABSOLUTE 0.02 0.00 - 0.70 K/uL 07/10/2018 5:03 AM CDT [facility] SERVICES - . [facility] BASOPHILS ABSOLUTE 0.02 0.00 - 0.20 K/uL 07/10/2018 5:03 AM CDT [facility] - . [facility] IMMATURE GRANULOCYTES ABSOLUTE 0.04(H) 0.00 - 0.03 K/uL 07/10/2018 5:03 AM CDT [facility] Blood Venipuncture / Unknown 07/10/2018 4:05 AM CDT 07/10/2018 4:39 AM CDT Micki King MD HEMATOLOGY ORDERABLE S Performing Organization Address City/State/[facility] Co de Phone Number [facility]# [id number] [address] [place] [address] * PATHOLOGY (07/09/2018 10:23 AM CDT) CASE REPORT Surgical Pathology Report ? Case: [id number] ? Authorizing Provider: ??Micki King MD ? Collected: ? 07/09/2018 10:23 AM ? Ordering Location: ? [facility] ?Received: ?07/09/2018 02:02 PM ? Operating Room ? Pathologist: ? Kaila Cruz, MD ? Specimens: ?? A) - Periaortic lymph nodes, left, Periaortic Lymph Nodes (Bilateral) ? B) - Uterus, Cervix, Ovaries, bilateral, Fallopian tubes, bilateral ? C) - Pelvic lymph nodes, right ? D) - Pelvic lymph nodes, left ? 8 7:50 AM CDT [facility] FINAL DIAGNOSIS Uterus, cervix, hysterectomy: - Endocervical polyp. - Mild chronic inflammation. Uterus, endomyometrium, hysterectomy: - Moderately differentiated adenocarcinoma, endometrioid type, with squamous differentiation (FIGO grade 2). - Adenocarcinoma invades to a depth of 2 mm where the total wall thickness measures 9 mm ( 22%). - No lymphovascular space invasion identified. - Lower uterine segment is free of carcinoma. - Endometrial polyps. - Leiomyomata, largest 2.8 cm. - Adenomyosis. Ovary, right, salpingo-oophorectom y: - Para-ovarian adhesions. Fallopian tube, right, salpingo-oophorectom y: - Extensive peritubal adhesions. Ovary, left, salpingo-oophorectom y: - Fibroma, 2.3 cm. Fallopian tube, left, salpingo-oophorectom y: - Cystic W[place]ard rests. Lymph nodes, periaortic, excision: - No carcinoma identified in three lymph nodes (0/3). Lymph nodes, right pelvic, excision: - No carcinoma identified in four lymph nodes (0/4). Lymph nodes, left pelvic, excision: - No carcinoma identified in five lymph nodes (0/5). 8 7:50 AM [facility] IMEN DESCRIPTION (A) Periaortic lymph nodes (bilateral); (B) uterus, cervix, bilateral ovaries and bilateral fallopian tubes; (C) right pelvic lymph nodes; (D) left pelvic lymph nodes. 8 7:50 AM [facility] OPERATIVE PROCEDURE Hysterectomy total da Geeta SI, bilateral salpingo-oophorectom y da Geeta SI, pelvic lymph node staging da Geeta SI. 8 7:50 AM [facility] CLINICAL DIAGNOSIS Endometrial cancer. 8 7:50 AM [facility] GROSS DESCRIPTION The specimens are received in four containers labeled Jolene Mamadou. Part A is a additionally labeled periaortic lymph nodes bilateral and consists of four pieces of yellow-ferguson, lobulated, adipose tissue that are 1 to 3.4 cm in greatest dimension. The fat is dissected to reveal three, possible pink-greco lymph nodes that are 0.5, 1.6, and 1.8 cm in greatest dimension. The lymph nodes are entirely submitted as follows: A1-smallest lymph node; A2-one bisected lymph node; A3-one bisected lymph node. Part B is additionally labeled uterus, cervix, bilateral ovaries and bilateral fallopian tubes and consists of a 97-g, 7.2 x 5 x 3.3-cm uterus, with bilateral attached adnexa. The serosal surface is pink-red and smooth. There is an intramural mass bulging from the posterior surface that is 2.8 cm in greatest dimension, white, whorled tissue with no evidence of hemorrhage or necrosis. The lesion is also filled with scattered calcifications. The resection margin is inked blue. The ectocervix is pink-greco, smooth, and 3.2 x 3.2 cm. There is a central, 0.5-cm oval os. The uterus is opened laterally to reveal an unremarkable transformation zone. The endocervical canal is 3.5 cm in length. The anterior endocervical canal has two possible endocervical polyps that are 0.4 and 0.5 cm in greatest dimension. The polyps appear to be confined to the endocervix. The endometrial cavity is 3.8 x 3 cm and lined by ferguson-pink, velvety tissue with a thickness of less than 0.1 cm. There is a well-circumscribed, papillary, raised lesion in the anterior cavity and extending into the posterior cavity that is 3 x 3 cm measured across the fundus. The posterior endometrial cavity has a small possible endometrial polyp that is 0.5 cm in greatest dimension. The polyp appears to be confined to the endometrium. The papillary lesion is approximately 0.9 cm from the anterior lower uterine segment and 3.2 cm from the posterior lower uterine segment. Sectioning through the lesion reveals an anterior lesion thickness of up to 0.8 cm and a posterior lesion thickness of up to 0.2 cm. The anterior lesion has focal areas in which the lesion appears to penetrate the myometrium. The posterior aspect of the lesion appears to be superficial. The anterior myometrium has a thickness of 1.3 cm, and the posterior myometrium has a thickness of 1.8 cm. The myometrium is pink and trabeculated and contains five well-circumscribed, intramural masses that range from 0.3 to 2.5 cm in greatest dimension. The largest lesion is the calcified lesion previously described. The remaining lesions are composed of white, whorled tissue with no evidence of hemorrhage or necrosis. The right ovary is 1.7 x 1.4 x 0.7 cm. The external surface is white-ferguson to pink and smooth. Sectioning reveals pink, unremarkable ovarian stroma. The right fallopian tube is 5 cm in length x 0.4 to 0.8 cm in diameter, has a fimbriated end, and has a pinpoint lumen. The left ovary is 2.3 x 1.7 x 1.5 cm. The external surface is white-ferguson to pink and smooth. Sectioning reveals slightly yellow-ferguson to pink, extremely firm tissue occupying the entire ovary. No normal ovarian stroma is identified. The left fallopian tube is 5.5 cm in length by 0.6 cm in diameter, has a fimbriated end, and has a pinpoint lumen. [employer] sections are submitted as follows: B1-anterior cervix; B2 and B3-anterior lower uterine segment, with each section containing an entire endocervical polyp; B4 through B6-anterior endomyometrium with lesion show depth of invasion; B7-posterior cervix; B8-posterior lower uterine segment; B9 through C04-ilmxuffew endomyometrium with lesion; Z22-lorzng endometrial polyp; G76-rtoffvku of intramural masses; J31-bstzyd right ovary; H92-uised fallopian tube, including the entire fimbriated end; I69-hrpy ovary; M37-ilbi fallopian tube, including the entire fimbriated end. Part C is additionally labeled pelvic lymph nodes right and consists of three pieces of yellow-ferguson, lobulated adipose tissue that are 3.2, 3.4, and 5.8 cm in greatest dimension. The fat is dissected to reveal four possible lymph nodes that are 1, 2.3, 2.4, and 5.2 cm in greatest dimension. The smallest lymph node is bisected and entirely submitted in cassette C1. The third largest lymph node is bisected and entirely submitted in cassette C2. The second largest lymph node is bisected and entirely submitted in cassettes C3 and C4. The largest lymph node is serially sectioned and entirely submitted in cassettes C5 through C11. Part D is additionally labeled pelvic lymph nodes left and consists of a single piece of yellow-ferguson, lobulated adipose tissue that is 7 x 6.3 x 2 cm. The fat is dissected to reveal five possible lymph nodes that are 0.8 to 5.8 cm in greatest dimension. The lymph nodes are submitted as follows: D1-smallest lymph node; D2-one bisected lymph node; D3-one bisected lymph node; D4-one bisected lymph node; D5 through X36-oievps largest lymph node. CAMILO/asmita 8 7:50 AM [facility] MICROSCOPIC DESCRIPTION The slides are labeled [id number] and Jolene Cedillo Microscopic description substantiates the above cited diagnoses. Additional deeper levels and cytokeratin cocktail stain were performed on one section of the left pelvic lymph nodes. These are negative for tumor. 8 7:50 AM [facility] SPECIAL AND IMMUNOPEROXIDASE STAINS This section reports the results of immunohistochemistry for mismatch repair proteins. Site: endometrium Procedure: hysterectomy Block: B6 The results of MMR IHC are as follows: PMS2: retained MLH1: retained MSH2: retained MSH6: retained Immunohistochemical (IHC) stains for the DNA mismatch repair (MMR) enzymes MLH1, MSH2, MSH6, and PMS2 have been performed. These show retained nuclear expression in the tumor cells equivalent to that seen in lymphocytes and smooth muscle in the adjacent normal tissue, a staining pattern that is usually not associated with a defect in mismatch repair function. Normal expression of all four proteins suggests this particular cancer is unlikely to be due to a hereditary germline mutation in the genes known to be associated with Cavazos Syndrome. Clinical correlation is required. IHC is a reliable measure of DNA mismatch repair status but is neither completely sensitive nor specific and has limitations. 8 7:50 AM [facility] SYNOPTIC REPORT ENDOMETRIUM ??(Endometrium - All Specimens) SPECIMEN ?? Procedure: ?Simple hysterectomy ?? Procedure: ?Bilateral salpingo-oophorectom y TUMOR ?? Histologic Type: ?Endometrioid carcinoma with squamous differentiation ?? Histologic Grade: ?FIGO grade 2 ?? Tumor Extent: ? Myometrial Invasion: ?Present ? Depth of Invasion in Millimeters (mm): ?2 Millimeters (mm) ? Myometrial Thickness in Millimeters (mm): ?9 Millimeters (mm) ? Percentage of Myometrial Invasion: ?22 % ? Adenomyosis: ?Present, uninvolved by carcinoma ? Uterine Serosa Involvement: ?Not identified ? Lower Uterine Segment Involvement: ?Not identified ? Cervical Stromal Involvement: ?Not identified ? Other Tissue / Organ Involvement: ?Not identified ? Peritoneal Ascitic Fluid: ?Not submitted / unknown ?? Accessory Findings: ? Lymphovascular Invasion: ?Not identified MARGINS LYMPH NODES ?? Number of Pelvic Nodes with Macrometastasis: ?0 ?? Number of Pelvic Nodes with Micrometastasis: ?0 ?? Number of Pelvic Nodes with Isolated Tumor Cells: ?0 ?? Total Number of Pelvic Node(s) Examined (sentinel and nonsentinel): ?9 ?? Number of Pelvic Dimock Nodes Examined: ?0 ?? Laterality of Pelvic Node(s) Examined: ?Right ?? Laterality of Pelvic Node(s) Examined: ?Left ?? Number of Para-aortic Nodes with Macrometastasis: ?0 ?? Number of Para-aortic Nodes with Micrometastasis: ?0 ?? Number of Para-aortic Nodes with Isolated Tumor Cells: ?0 ?? Total Number of Para-aortic Node(s) Examined (sentinel and nonsentinel): ?3 ?? Number of Para-aortic Dimock Nodes Examined: ?0 ?? Laterality of Para-aortic Node(s) Examined: ?Cannot be determined PATHOLOGIC STAGE CLASSIFICATION (pTNM, AJCC 8th Edition) ?? Primary Tumor (pT): ?pT1a ?? Regional Lymph Nodes (pN): ? Category (pN): ?pN0 FIGO STAGE ?? FIGO Stage: ?IA 8 7:50 AM CDT [facility] COMMENT Special stain and/or immunohistochemical results are interpreted with controls that demonstrate appropriate staining reactions. Note on use of immunocytochemistry reagents: This test was developed and its performance characteristic determined by [facility], Department of Laboratory Medicine. It has [...] WF, WB and WH are performed by [address], [address]. All other case types are performed by [place] [address] [facility] [address]. 7:50 AM CDT [facility] LABORATORY [facility] Tissue (Periaortic lymph nodes, left) Collection / Unknown 07/09/2018 10:23 AM CDT 07/09/2018 2:02 PM CDT Tissue specimen (specimen) (Uterus, Cervix, Ovaries, bilateral, Fallopian tubes, bilateral) Collection / Unknown 07/09/2018 11:51 AM CDT 07/09/2018 2:02 PM CDT Tissue specimen (specimen) (Pelvic lymph nodes, right) 07/09/2018 11:51 AM CDT 07/09/2018 2:02 PM CDT Tissue specimen (specimen) (Pelvic lymph nodes, left) 07/09/2018 12:29 PM CDT 07/09/2018 2:02 PM CDT Micki King MD PATHOLOGY/CYTOLOGY O [facility] CLIA# [id number] [address] [place] [address] [place] [address] * VERIFICATION BLOOD GROUP (07/09/2018 7:19 AM CDT) ABO GROUP B 07/09/2018 8:06 AM CDT [facility] LABORATORY [facility] RH (D) TYPE Positive 07/09/2018 8:06 AM CDT [facility] LABORATORY [facility] Blood Collection / Unknown 07/09/2018 7:19 AM CDT 07/09/2018 7:46 AM CDT Marguerite Hernandez MD BLOOD BANK DANILO WRAY [facility] CLIA# [id number] [address] [place] [address] * PREPARE RED BLOOD CELLS (06/27/2018 11:51 AM CDT) COMPONENT TYPE [id number] [facility] COMPONENT IDENTIFICATION [id number]-* [facility] UNIT ABO B [facility] RH POS [facility] COMPONENT STATUS Returned [facility] COMPONENT EXPIRATION DATE/[facility] COMPONENT CODING SYSTEM [facility] 06/27/2018 11:5 1 AM CDT Micki King MD LAB TRANSFUSION [facility] CLIA# [id number] [address] [place] [address] * PREPARE RED BLOOD CELLS (06/27/2018 11:51 AM CDT) COMPONENT TYPE [id number] [facility] COMPONENT IDENTIFICATION [id number] [facility] UN[facility] ABO B [facility] RH POS [facility] COMPONENT STATUS Returned [facility] COMPONENT EXPIRATION DATE/[facility] COMPONENT CODING SYSTEM [address] [facility] 06/27/2018 11:5 1 AM CDT Micki King MD LAB TRANSFUSION [facility] CLIA# [id number] [address] [place] [address] documented in this encounter Visit Diagnoses Not on filedocumented in this encounter Administered Medications Inactive Administered Medications - up to 3 most recent administrations Medication Order MAR Action Action Date Dose Rate Site bupivacaine-EPINEPHrine (SENSORCAINE-EPINEPHRINE ) 0.25 %-1:200,000 injection INTRA-PROCEDURE PRN, Starting on Sun07/09/18 at 1304, Until Sun07/09/18 at 1324, Routine, Intra-op Given 07/09/2018 1:04 PM CDT 50 mL Operative Site dextrose 5 % in water 250 mL flush bag 25 mL 25 mL, IV, SEE ADMIN INSTRUCTIONS, Starting on Sun07/09/18 at 2343, Until Sun07/10/18 at 1933, Routine dextrose 5% - sodium chloride 0.9% infusion IV, at 150 mL/hr, CONTINUOUS, Starting on Sun07/09/18 at 1500, Until Sun07/10/18 at 1933, Routine, Post-op - Floor New Bag 07/09/2018 9:14 PM CDT 150 mL/hr New Bag 07/09/2018 3:04 PM CDT 150 mL/hr enoxaparin (LOVENOX) injection 40 mg 40 mg (rounded from 42.8 mg = 0.5 mg/kg ? 85.6 kg), subCUT, SEE ADMIN INSTRUCTIONS, Starting on Sun07/10/18 at 0800, Until Sun07/10/18 at 1933, Routine, Post-op - Floor Given 07/10/2018 10:06 AM CDT 40 mg Abdomen, Right Upper Quadrant HYDROmorphone (DILAUDID) 2 mg/mL injection 0.3 mg 0.3 mg, IV, EVERY 4 HOURS PRN, Starting on Sun07/09/18 at 1457, Until Sun07/10/18 at 1933, Pain (See admin instructions), Routine, Post-op - Floor methotrexate (RHEUMATREX) tablet 15 mg 15 mg, Oral, EVERY 7 DAYS, First dose (after last reorder) on Sun07/10/18 at 0900, Until Discontinued, Routine Given 07/10/2018 10:04 AM CDT 15 mg naloxone (NARCAN) 0.4 mg/mL injection 0.1 mg 0.1 mg, IV, SEE ADMIN INSTRUCTIONS, Starting on Sun07/09/18 at 1457, Until Sun07/10/18 at 1933, Routine, Post-op - Floor ondansetron (ZOFRAN) 4 mg/2 mL injection 4 mg 4 mg, IV, EVERY 6 HOURS PRN, Starting on Sun07/09/18 at 1457, Until Sun07/10/18 at 1933, Nausea/Emesis, Routine, Post-op - Floor sodium chloride 0.9 % 250 mL flush bag 25 mL 25 mL, IV, SEE ADMIN INSTRUCTIONS, Starting on Sun07/09/18 at 2343, Until Sun07/10/18 at 1933, Routine sodium chloride 0.9 % irrigation solution INTRA-PROCEDURE PRN, Starting on Sun07/09/18 at 1034, Until Sun07/09/18 at 1324, Routine, Intra-op Given 07/09/2018 10:34 AM CDT 1,000 mL Operative Site sodium chloride 0.9% infusion INTRA-PROCEDURE CONTINUOUS PRN, Starting on Sun07/09/18 at 1032, Until Sun07/09/18 at 1032, Routine, Intra-op New Bag 07/09/2018 10:32 AM CDT 500 mL Operative Site sodium chloride flush injection 5 mL 5 mL, IV, EVERY 12 HOURS (BlD), First dose on Sun07/10/18 at 0900, Until Discontinued, Routine Given 07/10/2018 9:19 AM CDT 5 mL sodium chloride flush injection 5 mL 5 mL, IV, SEE ADMIN INSTRUCTIONS, Starting on Sun07/09/18 at 2343, Until Sun07/10/18 at 1933, Routine traMADol (ULTRAM) tablet 50 mg 50 mg, Oral, EVERY 6 HOURS PRN, Starting on Sun07/09/18 at 1457, Until Sun07/10/18 at 1933, Pain (See admin instructions), Routine Given 07/10/2018 3:28 PM CDT 50 mg Given 07/10/2018 9:19 AM CDT 50 mg Given 07/10/2018 2:35 AM CDT 50 mg documented in this encounter Active and Recently Administered Medications Times are shown in CDT. Scheduled Medication Order 07/08/2018 07/09/2018 07/10/2018 bupivacaine-EPINEPHrine (SENSORCAINE-EPINEPHRINE) 0.25 %-1:200,000 injection 125 mg 125 mg, Infiltration, ONE TIME ONLY, 1 dose, On Sun07/09/18 at 0845, Routine 0845 (Canceled Entry - Provider: Amelia Dickens RN - Comment: or) cefOXitin (MEFOXIN) 2,000 mg in sodium chloride 0.9% 50 mL IVPB (MBP) (COMPLETED) 2,000 mg, IV, PRE-PROCEDURE ONCE, 1 dose, Starting on Sun07/09/18 at 0730, Until Sun07/09/18 at 1023, Routine, Antibiotic Indication: Surgical prophylaxis 0953 (New Bag - Provider: ALEX Steel)1023 (Stopped - Provider: ALEX Steel) cefOXitin (MEFOXIN) 2,000 mg in sodium chloride 0.9% 50 mL IVPB (MBP) (COMPLETED) 2,000 mg, IV, INTRA-PROCEDURE ONCE, 1 dose, Starting on Sun07/09/18 at 1202, Until Sun07/09/18 at 1255, Stat, Intra-op, Antibiotic Indication: Surgical prophylaxis 1225 (New Bag - Provider: ALEX Steel)1255 (Stopped - Provider: ALEX Steel) dextrose 5 % in water 250 mL flush bag 25 mL 25 mL, IV, SEE ADMIN INSTRUCTIONS, Starting on Sun07/09/18 at 2343, Until Sun07/10/18 at 1933, Routine enoxaparin (LOVENOX) injection 40 mg 40 mg (rounded from 42.8 mg = 0.5 mg/kg ? 85.6 kg), subCUT, SEE ADMIN INSTRUCTIONS, Starting on Sun07/10/18 at 0800, Until Sun07/10/18 at 1933, Routine, Post-op - Floor 1006 (Given - Provid er: Missy Conley RN) lidocaine PF 2 % (XYLOCAINE MPF) injection 0.3 mL (COMPLETED) 0.3 mL, Infiltration, PRE-PROCEDURE ONCE, 1 dose, Starting on Sun07/09/18 at 0718, Until Sun07/09/18 at 0741, Routine 0741 (Given - Provider: Pricilla Baum RN) methotrexate (RHEUMATREX) tablet 15 mg 15 mg, Oral, EVERY 7 DAYS, First dose (after last reorder) on Sun07/10/18 at 0900, Until Discontinued, Routine 1004 (Given - Provid er: Missy Conley RN) naloxone (NARCAN) 0.4 mg/mL injection 0.1 mg 0.1 mg, IV, SEE ADMIN INSTRUCTIONS, Starting on Sun07/09/18 at 1457, Until Sun07/10/18 at 1933, Routine, Post-op - Floor sodium chloride 0.9 % 250 mL flush bag 25 mL 25 mL, IV, SEE ADMIN INSTRUCTIONS, Starting on Sun07/09/18 at 2343, Until Sun07/10/18 at 1933, Routine sodium chloride flush injection 5 mL 5 mL, IV, EVERY 12 HOURS (BlD), First dose on Sun07/10/18 at 0900, Until Discontinued, Routine 0919 (Given - Provid er: Missy Conley RN) sodium chloride flush injection 5 mL 5 mL, IV, SEE ADMIN INSTRUCTIONS, Starting on Sun07/09/18 at 2343, Until Sun07/10/18 at 1933, Routine Continuous Medication Order 07/08/2018 07/09/2018 07/10/2018 dextrose 5% - sodium chloride 0.9% infusion IV, at 150 mL/hr, CONTINUOUS, Starting on Sun07/09/18 at 1500, Until Sun07/10/18 at 1933, Routine, Post-op - Floor 1504 (New Bag - Provider: Brooke Dickens RN)2114 (New Bag - Provider: Brenda Schrader RN) lactated Ringers solution (CANCELED) IV, at 150 mL/hr, PRE-PROCEDURE CONTINUOUS, Starting on Sun07/09/18 at 0730, Until Sun07/09/18 at 1454, Routine 0741 (New Bag - Provider: Pricilla Baum RN)0923 (Continue from Pre-Op - Provider: ALEX Steel)1144 (Fluid Volume - Provider: ALEX Steel)1240 (New Bag - Provider: ALEX Steel)1327 (Fluid Volume - Provider: ALEX Steel) PRN Medication Order 07/08/2018 07/09/2018 07/10/2018 bupivacaine-EPINEPHrine (SENSORCAINE-EPINEPHRINE) 0.25 %-1:200,000 injection (CANCELED) INTRA-PROCEDURE PRN, Starting on Sun07/09/18 at 1304, Until Sun07/09/18 at 1324, Routine, Intra-op 1304 (Given - Provider: Micki King MD) HYDROmorphone (DILAUDID) 2 mg/mL injection 0.3 mg 0.3 mg, IV, EVERY 4 HOURS PRN, Starting on Sun07/09/18 at 1457, Until Sun07/10/18 at 1933, Pain (See admin instructions), Routine, Post-op - Floor ondansetron (ZOFRAN) 4 mg/2 mL injection 4 mg 4 mg, IV, EVERY 6 HOURS PRN, Starting on Sun07/09/18 at 1457, Until Sun07/10/18 at 1933, Nausea/Emesis, Routine, Post-op - Floor sodium chloride 0.9 % irrigation solution (CANCELED) INTRA-PROCEDURE PRN, Starting on Sun07/09/18 at 1034, Until Sun07/09/18 at 1324, Routine, Intra-op 1034 (Given - Provider: Micki King MD - Comment: Davol Irrigation PRN Use) sodium chloride 0.9% infusion (COMPLETED) INTRA-PROCEDURE CONTINUOUS PRN, Starting on Sun07/09/18 at 1032, Until Sun07/09/18 at 1032, Routine, Intra-op 1032 (New Bag - Provider: Micki King MD - Comment: Sterile Field Irrigation PRN Use) traMADol (ULTRAM) tablet 50 mg 50 mg, Oral, EVERY 6 HOURS PRN, Starting on Sun07/09/18 at 1457, Until Sun07/10/18 at 1933, Pain (See admin instructions), Routine 2052 (Given - Provider: Marguerite Silva RN) 0235 (Given - Provider: Brenda Schrader RN)0919 (Given - Provider: Missy Conley, RN)1528 (Given - Provider: Missy Conley, RN) documented in this encounter Care Teams Cvir Tech Relationship Specialty Start Date End Date Francisco Long MD PCP - General Internal Medicine 06/27/18 documented as of this encounter
--- OUTSIDE RECORDS SUMMARY | 2024-11-16 13:30 | XMS_ITS | Encounter Summary ---
Author Organization [facility] Address [address] [place] [address] Care Team Providers Care Account Manager B2B Name Role Phone Francisco Long MD Primary Care Provider Unavailabl e Encounter Details Date Type Department Care Team (Latest Contact Info) Description 06/27/2018 9:21 AM CDT - 06/27/2018 11:59 PM CDT Hospital Encounter [facility] Laboratory Services [address] [place] [place] [address] Micki Cadena MD NO ADDRESS ON FILE [...] Appointment [facility] [address] [place] [address] Caron Mohan MD [address] [place] [address] 03/19/2025 11:30 AM CDT Office Visit [facility] Oncology and Hematology [address] [address] [facility] [address] [place] [phone] Caron Mohan MD [address] [place] [address] [place] [address] [facility] [address] [place] [address] documented as of this encounter Procedures Procedure Name Priority Date/Time Associated Diagnosis Comments PATHOLOGY Pathology 06/27/2018 9:23 AM CDT documented in this encounter Results * PATHOLOGY (06/27/2018 9:23 AM CDT) CASE REPORT Surgical Pathology Report ? Case: [id number] ? Authorizing Provider: ??Micki Cadena MD ? Collected: ? 06/27/2018 09:23 AM ? Ordering Location: ? [facility] ?? Received: ?06/27/2018 09:23 AM ? Services [address] ? Pathologist: ? Kaila Cruz MD ? Specimen: ?Other, specify, 1 sl labeled as [id number] ? 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 06/28/2018 10:50 AM [facility] ICAL INFORMATION The patient is a 72 year old woman N93.8 06/28/2018 10:50 AM [facility] MICROSCOPIC DESCRIPTION The slide is labeled [id number] and Jolene Cedillo. Microscopic description substantiates the above cited diagnosis. 06/28/2018 10:50 AM [facility] SUBMITTED BY Dr. Micki Cadena, Women's Oncology [facility], [address] [place] [address] , [address] [address] Cc: [facility], [address] [place] [address]. 06/28/2018 10:50 AM [facility] MATERIAL RECEIVED Received from [facility] is one slide labeled [id number] 1-Jolene Cedillo. It is derived from an endometrial biopsy performed on 05/31/18 as detailed in the accompanying corresponding surgical pathology report. 06/28/2018 10:50 AM [facility] COMMENT Special stain and/or immunohistochemical results are interpreted with controls that demonstrate appropriate staining reactions. Note on use of immunocytochemistry reagents: This test was developed and its performance characteristic determined by [facility], Department of Laboratory Medicine. It [...] WF, WB and WH are performed by [address], [address]. All other case types are performed by [facility] [address] [facility] [address]. 06/28/2018 10:50 AM CDT [facility] Tissue (Other, specify) 06/27/2018 9:23 AM CDT 06/27/2018 9:23 AM CDT Micki Cadena MD PATHOLOGY/CYTOLOGY O RDERABLES [facility] CLIA# [id number] [address] [facility] [place] [address] documented in this encounter Visit Diagnoses Not on filedocumented in this encounter Care Teams Account Manager B2B Relationship Specialty Start Date End Date Francisco Long MD PCP - General Internal Medicine 06/27/18 documented as of this encounter
--- OUTSIDE RECORDS SUMMARY | 2024-11-16 13:30 | XMS_ITS | Encounter Summary ---
Author Organization [facility] Address [address] [place] [address] Care Team Providers Care Shipping Manager Name Role Phone Francisco Long MD Primary Care Provider Unavailabl e Reason for Referral * Radiology Services (Routine) - Closed Specialty Diagnoses / Procedures Referred By Halima garcia Referred To Contact Diagnoses Breast lump Procedures MAMMO BRE[place] [address] [place] [address] Referral ID Status Reason Start Date Expiration Date Visits Re quested Visits Authorized [id number] Closed 09/13/2018 10/14/2019 1 1 Encounter Details Date Type Department Care Team (Late st Contact Info) Description 09/13/2018 Orders Only [facility] BREAST SURGERY - [place] [address] [place] [address] [place] [address] [place] [address] Breast lump Social History Tobacco Use Types [...] CDT Appointment [facility] [address] [address] [place] [phone] Caron Mohan MD [address] [facility] [address] [place] [address] 03/19/2025 11:30 AM CDT Office Visit [facility] Oncology and Hematology [address] [address] [facility] [address] [place] [address] Caron Mohan MD [address] [place], [place] [id number] [place] [address] [facility] [address] [place] [address] documented as of this encounter Results * MAMMO BREAST US [...] tissue marker placement. Dictated from: [facility] [place] Narrative 09/24/2018 11:26 AM CDT EXAM: ULTRASOUND-GUIDED [...] histologic analysis. Ita Vazquez MD MAMMO ORDERABLES documented in this encounter Visit Diagnoses Diagnosis Breast lump Lump or mass in breast Breast lump Lump or mass in breast documented in this encounter Care Teams Shipping Manager Relationship Specialty Start Date End Date Francisco Long MD PCP - General Internal Medicine 06/27/18 documented as of this encounter
--- OUTSIDE RECORDS SUMMARY | 2024-11-16 13:30 | XMS_ITS | Encounter Summary ---
Author Organization [facility] Address [address] [place] [address] Care Team Providers Care Web Development Director Name Role Phone Francisco Long MD Primary Care Provider Unavailabl e Reason for Referral * Outpatient Services (Routine) - Closed Specialty Diagnoses / Procedures Referred By Halima garcia Referred To Contact CT Scan Diagnoses Endometrium cancer Procedures CT ABDOMEN PELVIS W CONTRAST Micki Cadena MD NO ADDRESS ON FILE Referral ID Status Reason Start Date Expiration Date V isits Requested Visits Authorized [id number] Closed [facility] 06/25/2018 07/25/2018 1 1 Reason for Visit * Outpatient Services (Routine) - Closed Specialty Diagnoses / Procedures Referred By Halima t Referred To Contact CT Scan Diagnoses Endometrium cancer Procedures CT ABDOMEN PELVIS W CONTRAST Micki Cadena MD NO ADDRESS ON FILE Referral ID Status Reason Start Date Expiration Date V isits Requested Visits Authorized [id number] Closed [facility] 06/25/2018 07/25/2018 1 1 Encounter Details Date Type Department Care Team (Latest Contact Info) Description 06/27/2018 1:24 PM CDT - 06/27/2018 11:59 PM CDT Hospital Encounter [facility] [address] [place] [id number] Micki Cadena MD NO ADDRESS ON FILE [...] daily. 06/08/2021 documented as of this encounter Miscellaneous Notes * Treatment Plan - Neeru Ball RN - 06/27/2018 2:26 PM CDT IMAGING SERVICES- CT, MRI MEDICATION and FLUSH PROTOCOL [facility] ORDERS ARE ENTERED ???PER PROTOCOL?? Enter the protocol in the patient???s electronic health record using [employer]: .[email or web address] Communication Orders: o For ordered imaging procedures [...] O2 to maintain saturation greater than 90% PROCEDURE SPECIFIC MEDICATIONS ??? Cystogram (CT Pelvis): Iopamidol (Isovue 300) 61%, 50mL, diluted with 250mL of sterile NS. Inject Isovue into 250mL bag ofNS.. Clamp mcguire catheter prior to instilling solution via catheter. o Instill up to 300mL of Isovue and NS solution into bladder via catheter, one time. CT ORAL CONTRAST PROTOCOLS FOR ADULTS ??? Use Iohexol (Omnipaque) 240 mg/mL for CT scan unless patient has a documented allergy to contrast dye. ??? If allergy present, use Barium Sulfate (EZ Paque) for procedure. ??? If at any time the Ticket Taker has a question about which option to administer, seek clarification from a Radiologist. o Iohexol (Omnipaque) 240 mg/mL: 50ml added to 960mL of clear liquid of patient???s choice. Preferred route is oral. May use nasoenteric tube if needed. ??? Administer 900mL of the diluted Omnipaque 240, orally, one time only. o Barium Sulfate (EZ Paque /Vanilla Silq) 96% oral suspension: Preferred route is oral. May use nasoenteric tube if needed. ??? Administer 900mL of barium sulfate, orally, one time only. CT ORAL CONTRAST PROTOCOLS FOR PEDIATRICS Pediatrics = up to age 18 o Pediatric Radiologist will approve of one of the following products selected for procedure. ??? Barium Sulfate (EZ Paque) 96% oral suspension: preferred route is oral. May use nasoenteric tube if needed. [place] to 3 months Administer up to 90mL of Barium Sulfate, orally, one time only 4 months to 1 year old Administer up to 240mL of Barium sulfate , Orally, One Time Only 1 year old to 5 years old Administer up to 360mL of Barium sulfate , Orally, One Time Only 5 years old to 10 years old Administer up to 480mL of Barium sulfate , Orally, One Time Only Over 10 years old Administer up to 600mL of Barium sulfate , Orally, One Time Only ??? Iohexol (Omnipaque) 240 mg/mL oral solution ??? Dilute 25mL of iohexol with 480mL of clear liquid of patient???s choice. Administer the dilutedsolution per age as follows: Preferred route is orally. May use nasoenteric tube if needed. ??? Send any remaining diluted Iohexol solution with the pateint???s nurse to CT [place] Administer 45mL of diluted Iohexol oral solution, orally every 30 minutes x 2 doses. 1 month to 1 year old Administer 120mL of diluted Iohexol oral solution, orally every 30 min x 2 doses. 1 year old to 5 years old Administer 180mL of Iohexol orally every 30 min x 2 doses. 5 years old to 10 years old Administer 240mL of Iohexol orally every 30 min x 2 doses. Over 10 years old Administer 300mL of Iohexol orally every 30 min x [address] RECTAL CONTRAST PROTOCOLS ADULTS: o Iohexol (Omnipaque) 240 mg/mL: Dilute 50mL of Omnipaque with 900mL of warm water in an enema bag.Administer the diluted solution rectally via gravity per patient???s tolerance, up to 950mLs, one time only. CT IV CONTRAST PROTOCOLS for ADULT ADULTS: (If patient is less than 55kg and confirm dose with radiologist) o Iopadmidol (Isovue-300): Administer 2.2mL/kg of Iopamidol 61%, intravenously, one time only. o See table below for maximum dose, unless otherwise authorized by radiologist.If exam has been completed before the entire dose has been administered, stop the injection. o If exam not included in table below, contact radiologist for orders. Procedure Maximum Dose CT Head with Contrast Up to [address] Chest with Contrast Up to [address] Maxilofacial with Contrast Up to [address] Soft Tissue Neck with Contrast CT Chest Abdomen Pelvis with Contrast CT Chest Abdomen with Contrast CT Abdomen Pelvis with Contrast CT Pelvis with Contrast CT Angiogram Examinations (all) CT Soft Tissue Neck and Chest Abomen Pelvis with Contrast Up to [address] Soft Tissue Neck and Chest with Contrast CT Urogram with Contrast CT IV CONTRAST PROTOCOLS for PEDIATRICS PEDIATRICS: Use weight based dosing if patient is less than 55kg and confirm dose with radiologist. to 15 years old Administer 2.2mL/kg (to MAX of 80 mL) of Iopamidol (Isovue-300) 61%, intravenously, one time only 15 years old and older Administer 2.2mL/kg (to MAX of 150mL) of Iopamidol (Isovue-300) 61%, intravenously, one time only MRI IV CONTRAST PROTOCOLS ADULTS: o Multihance is used for most MRIs. For Liver studies, contact Radiologist to determine use of one of the following: Gadobenate Dimeglumine (Multihance) (0.1mmol/0.2mL), Administer 0.1mmol/kg = 0.2mL/kg up to MAX of 30mL, intravenously, one time only OR Gadoxetate (Eovist) 2.5 mmol/10mL, Administer 0.025mmol/kg = 0.1mL/kg MAX of 15mL, intravenously, one time only PEDIATRICS: o Radiologist to determine need for contrast Term neonates up to 2 years: Gadobutrol (Gadavist) 1mmol/mL injection, Administer 0.1mmol/kg = 0.1mL/kg up to MAX of 14mmol = 14mL, intravenously, one time only 2 years and older Gadobenate Dimeglumine (Multihance) (0.1mmol/0.2mL), Administer 0.1mmol/kg = 0.2mL/kg up to MAX of 20mL, intravenously, one time only Initiating Department(s): 11/2013 Nuclear Medicine and Pharmacy Reviewed: 08/2014 ,03/2016, 03/2017; 06/2017; 11/2017; 03/2018 Revised: 08/2014, 12/2016, 03/2017; 06/2017; 11/2017; 03/2018 Approved by: Medical Executive Committee, Imaging Services, and Pharmacy & Therapeutics Committee Date: 04/2018 documented in this encounter Plan of Treatment Upcoming Encounters Date Type Department Care Team (Late st Contact Info) Description 03/19/2025 10:45 AM CDT Appointment [facility] [id number] [place] [address] Caron Mohan MD [address] [facility] [address] [place] [phone] 03/19/2025 11:30 AM CDT Office Visit [facility] Oncology and Hematology [address] [place] [address] Caron Mohan MD [address] [facility] [address] [place] [address] [place] [address] [place] [address] documented as of this encounter Procedures Procedure Name Priority Date/Time Associated Diagnosis Comments CT ABDOMEN PELVIS W CONTRAST Routine 06/27/2018 2:42 PM CDT Endometrium cancer POC CREATININE Routine 06/27/2018 2:40 PM CDT documented in this encounter Results * CT ABDOMEN PELVIS W CONTRAST (06/27/2018 2:42 PM CDT) Anatomical Region Laterality Modality Abdomen Computed Tomogra phy 06/27/2018 2:53 PM CDT Impressions 06/27/2018 3:32 PM CDT IMPRESSION: 1. No CT evidence of metastatic disease in the abdomen or pelvis. 2. Large hiatal hernia with intrathoracic stomach. DICTATION LOCATION: The above dictation was performed at [address] Narrative 06/27/2018 3:32 PM CDT EXAMINATION: ??CT OF THE ABDOMEN AND PELVIS WITH INTRAVENOUS CONTRAST TECHNIQUE: CT of the abdomen and pelvis was performed following the uneventful administration of intravenous contrast according to standard protocol. Oral contrast was also administered. The examination was performed with the adjustment of mA according to the patient size and/or the use of Iterative Reconstruction Technique. HISTORY: 72-year-old female with endometrial cancer. COMPARISON: ??None. FINDINGS: The visualized lung bases are clear. The visualized heart is normal. The aorta is tortuous and normal caliber with mild atherosclerotic calcification. Large hiatal hernia with intrathoracic stomach is incompletely seen. The spleen, kidneys, adrenals, pancreas, liver, and gallbladder are normal. There is no intrahepatic or extrahepatic biliary ductal dilation. The small and large bowel are of normal caliber without CT evidence of obstruction.There is no hydronephrosis or nephrolithiasis. The appendix is normal. ??No intra-abdominal lymphadenopathy, free fluid or free air. Calcified fibroid is seen seen within the uterus. There is fluid in the endometrial canal. The urinary bladder is normal. ??No suspicious lytic or blastic osseous lesion or acute fracture is seen. Procedure Note Kishore Thao MD - 06/27/2018 EXAMINATION: CT OF THE ABDOMEN AND PELVIS WITH INTRAVENOUS CONTRAST TECHNIQUE: CT of the abdomen and pelvis was performed following the uneventful administration of intravenous contrast according to standard protocol. Oral contrast was also administered. The examination was performed with the adjustment of mA according to the patient size and/or the use of Iterative Reconstruction Technique. HISTORY: 72-year-old female with endometrial cancer. COMPARISON: None. FINDINGS: The visualized lung bases are clear. The visualized heart is normal. The aorta is tortuous and normal caliber with mild atherosclerotic calcification. Large hiatal hernia with intrathoracic stomach is incompletely seen. The spleen, kidneys, adrenals, pancreas, liver, and gallbladder are normal. There is no intrahepatic or extrahepatic biliary ductal dilation. The small and large bowel are of normal caliber without CT evidence of obstruction.There is no hydronephrosis or nephrolithiasis. The appendix is normal. No intra-abdominal lymphadenopathy, free fluid or free air. Calcified fibroid is seen seen within the uterus. There is fluid in the endometrial canal. The urinary bladder is normal. No suspicious lytic or blastic osseous lesion or acute fracture is seen. IMPRESSION: 1. No CT evidence of metastatic disease in the abdomen or pelvis. 2. Large hiatal hernia with intrathoracic stomach. DICTATION LOCATION: The above dictation was performed at [address] Micki Cadena MD CT ORDERABLES * POC CREATININE (06/27/2018 2:40 PM CDT) CREATININE POC 0.90 0.50 - 1.00 mg/dL 06/27/2018 2:43 PM CDT [facility] [employer] [facility] Comment: The GFR result is not clinically significant on patients <18 or >70 years of age. GFR >60 mL/min/1.7 3 sq meter 06/27/2018 2:43 PM CDT [facility] Comment: eGFR has not [...] GFR, >60 mL/min/1.7 3 sq meter 06/27/2018 2:43 PM CDT [facility] Blood, capillary 06/27/2018 2:40 PM CDT 06/27/2018 2:43 PM CDT Micki Cadena MD POINT OF CARE TESTIN G [facility] CLIA# [id number] [address] [place] [address] documented in this encounter Visit Diagnoses Diagnosis Endometrium cancer Malignant neoplasm of corpus uteri, except isthmus documented in this encounter Administered Medications Inactive Administered Medications - up to 3 most recent administrations Medication Order MAR Action Action Date Dose Rate Site iohexol (OMNIPAQUE) 240 mg/mL oral solution 50 mL 50 mL, Oral, PRE-PROCEDURE ONCE, 1 dose, Starting on Piedad 06/27/18 at 1325, Until Piedad 06/27/18 at 1330, Routine Given 06/27/2018 1:30 PM CDT 50 mL iopamidol (ISOVUE-300) 61 % injection 120 mL 120 mL, IV, INTRA-PROCEDURE ONCE, 1 dose, Starting on Piedad 06/27/18 at 1325, Until Piedad 06/27/18 at 1449, Routine Contrast Given 06/27/2018 2:49 PM CDT 120 mL documented in this encounter Care Teams Web Development Director Relationship Specialty Start Date End Date Francisco Long MD PCP - General Internal Medicine 06/27/18 documented as of this encounter
--- OUTSIDE RECORDS SUMMARY | 2024-11-16 13:30 | XMS_ITS | Encounter Summary ---
Author Organization [facility] Address [address] [place] [address] Care Team Providers Care Private Detective Name Role Phone Francisco Long MD Primary Care Provider Unavailabl e Reason for Visit * Auth/Cert Specialty Diagnoses / Procedures Referred By Halima t Referred To Contact Diagnoses ENDOMETRIAL CA Micki King MD NO ADDRESS ON FILE Referral ID Status Reason Start Date Expiration Date Visits Re quested Visits Authorized [id number] 06/24/2018 1 1 Encounter Details Date Type Department Care Team (Latest Contact Info) Description 07/09/2018 6:03 AM CDT - 07/10/2018 5:17 PM CDT Hospital Encounter [facility] [address] [place] [address] Micki King MD NO ADDRESS ON FILE Discharge Disposition: [...] Sign Reading Time Taken Comments Blood Pressure 148/72 07/10/2018 4:02 PM CDT Pulse 84 07/10/2018 4:02 PM CDT Temperature 36.3 ??C (97.4 ??F) 07/10/2018 4:02 PM CD T Respiratory Rate 16 07/10/2018 4:02 PM CDT Oxygen Saturation 98% 07/10/2018 4:02 PM CDT Inhaled Oxygen Concentration - - Weight 85.6 kg (188 lb 12.8 oz) 07/09/2018 7:21 AM CDT Height - - Body Mass Index 29.57 06/27/2018 11:59 AM CDT documented in this encounter Discharge Summaries * Micki King MD - 07/13/2018 11:17 AM CDT Surgical Discharge Summary Patient Name Jolene Cedillo Age 72 y.o. Gender female Date of 1945 [facility] [id number] Attending Physician No att. providers found Discharging [...] Your Medications These medications were sent to [facility] [address] [facility] [address] Hours: Sunday-Sunday: 8 a.m. - 8 p.m., [...] after your surgery. Your incision may have long, glue or steri- strips. If you have [...] just pat it dry. If you have long, they are usually removed 7-14 days after [...] King MD - 07/10/2018 1:54 PM CDT AGRIBUSINESS PROFESSOR ONC Doing well. Tolerating diet. No nausea or emesis. Ambulating and voiding without difficulty. Pain well controlled. Mild right shoulder pain. VS, I/O, labs noted. Abdomen soft +bs obese. incision clean, dry, intact. Phyllis in place. Ext nontender no edema A/P POD #1. Discussed with patient operative findings. Path pending. Stable post op course. Home today.Instructions given and scripts written. Office in 2 weeks. Micki King MD [phone] (cell) * Brenda Schrader RN - 07/09/2018 11:43 PM CDT ADULT IV Flush Protocol [facility] ORDERS ARE ENTERED ???PER PROTOCOL?? Enter [...] - 07/09/2018 9:28 AM CDT Operative Report [place], [place] Patient: Jolene eCdillo / 72 y.o. / female : 1945 Date: 07/09/2018 [facility]: [id number] Preoperative Diagnosis: Endometrial cancer, endometrioid type, grade 1 Postoperative Diagnosis: Same, final path pending. Procedure Performed: BEN GUALLPA, BSO, BPPLND Surgeon: Micki King MD Surgical Staff: Microelectronics Technician: Audi Johnson RN Scrub: Sharath Lubin ST Marine Painter: Renato Palmer RN Anesthesia: General Estimated Blood [...] for the procedure for this patient. Henny Christophergger in place, SCDs in place.?? IV antibiotics were administered as ordered, and 2 units of blood were on hold in the blood bank.?? Attention was then turned to the perineum.?? Mcguire was placed using sterile technique.?? Turin speculum was placed in the vagina.?? Cervix was visualized and grasped with single-tooth tenaculum.?? Uterus and cervix were then sounded to 8 cm.?? The cervical os was dilated to #16 F dilator.?? The medium VCare was placed into the uterus and locked into position with the seafood preparer supplied locking clip.?? Attention was then turned [...] then attended to the patient from the da Geeta console. The peritoneum overlying the aorta was [...] diagnosis. Next, the vagina was closed in zyjwhvaj-rm-ofxflnizy direction, starting at 12 o'clock and working [...] to admission, patient resided with at 1 story house with basement with 3 steps to [...] 0 Total Score Primary Emergency Contact: DOUGLAS CEDILLO Bob PCP verified as Francisco Long MD. Patient's insurance verified as Payor: MEDICARE / Plan: MEDICARE PART A AND B / Product Type: Medicare / The patient's preferred pharmacy [facility] [address] [place] [address] Juan A GALE & VALERIA Discussed discharge goals and possible discharge needs including home selfcare vs home with jaleesa. Care Management contact information provided. Care Management will continue to follow and assist asneeded. Maureen Sarmiento RN/[facility] Care Management [phone] * Care Plan - Brenda Schrader RN [...] pain/comfort utilizing verbal/nonverbal pain scales; assess culturalor latter-day indicators attached to pain; administer pain medications [...] pain/comfort utilizing verbal/nonverbal pain scales; assess culturalor latter-day indicators attached to pain; administer pain medications as prescribed; utilize non-pharmacologic pain control and comfort measures Expected Outcome: Patient demonstrates and reports adequate pain control Outcome Met: denies any pain documented in this encounter Plan of Treatment Upcoming Encounters Date Type Department Care Team (Late st Contact Info) Description 03/19/2025 10:45 AM CDT Appointment [facility] [address] [place] [address] Caron Mhoan MD [address] [facility] [address] [place] [address] 03/19/2025 11:30 AM CDT Office Visit [facility] Oncology and Hematology [address] [place] [phone] Caorn Mohan MD [address] [facility] [address] [place] [id number] [place] [address] [place] [phone] documented as of this encounter Procedures Procedure [...] - 145 mmol/L 07/10/2018 5:09 AM CDT [facility] POTASSIUM 3.8 3.5 - 5.0 mmol/L 07/10/2018 5:09 AM CDT [facility] CHLORIDE 100 98 - 107 mmol/L 07/10/2018 5:09 AM CDT [facility] CO2 26 22 - 29 mmol/L 07/10/2018 5:09 AM CDT [facility] CALCIUM 8.4(L) 8.6 - 10.2 mg/dL 07/10/2018 5:09 AM CDT [facility] BUN 8 8 - 23 mg/dL 07/10/2018 5:09 AM CDT [facility] CREATININE 0.73 0.51 - 0.95 mg/dL 07/10/2018 5:09 AM CDT [facility] Comment: The GFR result is not clinically significant on patients <18 or >70 years of age. GLUCOSE 140(H) 74 - 99 mg/dL 07/10/2018 5:09 AM T [facility] GFR >60 mL/min/1.7 3 sq meter 07/10/2018 5:09 AM T [facility] Comment: eGFR has not been validated for [...] 3 sq meter 07/10/2018 5:09 AM T [facility] ANION GAP 11 8 - 16 mmol/L 07/10/2018 5:09 AM [facility] Blood Venipuncture / Unknown 07/10/2018 4:05 AM CDT 07/10/2018 4:39 AM CDT Micki King MD CHEMISTRY ORDERABLES [facility]# [id number] [facility] [place] [address] * (ABNORMAL) CBC WITH DIFFERENTIAL (07/10/2018 4:05 AM CDT) WBC 10.1(H) 4.0 - 9.8 K/uL 07/10/2018 5:03 AM T [facility] RBC 4.25 3.90 - 4.90 M/uL 07/10/2018 5:03 AM [facility] HEMOGLOBIN 10.9(L) 11.8 - 14.8 g/dL 07/10/2018 5:03 AM T [facility] HEMATOCRIT 35.5 35.5 - 44.0 % 07/10/2018 5:03 AM T [facility] MCV 83.5 82.0 - 99.0 fL 07/10/2018 5:03 AM CDT [facility] MCH 25.6(L) 27.2 - 32.6 pg 07/10/2018 5:03 AM CDT [facility] MCHC 30.7(L) 31.5 - 35.5 g/dL 07/10/2018 5:03 AM CDT [facility] RDW 19.5(H) 11.5 - 14.5 % 07/10/2018 5:03 AM CDT [facility] RDW-STDEV 57.4(H) 37.1 - 48.7 fL 07/10/2018 5:03 AM CDT [facility] PLATELETS 205 140 - 350 K/uL 07/10/2018 5:03 AM CDT [facility] MPV 9.6 9.3 - 12.4 fL 07/10/2018 5:03 AM CDT [facility] [place] NEUTROPHILS 85 % 07/10/2018 5:03 AM CDT [facility] LYMPHOCYTES 6 % 07/10/2018 5:03 AM CDT [facility] MONOCYTES 8 % 07/10/2018 5:03 AM CDT [facility] EOSINOPHILS 0 % 07/10/2018 5:03 AM CDT [facility] BASOPHILS 0 % 07/10/2018 5:03 AM CDT [facility] [place] IMMATURE GRANULOCYTES 0 % 07/10/2018 5:03 AM CDT [facility] NEUTROPHIL ABSOLUTE 8.61(H) 1.90 - 7.00 K/uL 07/10/2018 5:03 AM CDT [facility] LYMPHOCYTE ABSOLUTE 0.60(L) 0.70 - 4.50 K/uL 07/10/2018 5:03 AM CDT [facility] MONOCYTE ABSOLUTE 0.79 0.10 - 1.30 K/uL 07/10/2018 5:03 AM CDT [facility] [place] EOSINOPHIL ABSOLUTE 0.02 0.00 - 0.70 K/uL 07/10/2018 5:[address] [facility] BASOPHILS ABSOLUTE 0.02 0.00 - 0.20 K/uL 07/10/2018 5:03 AM CDT [facility] IMMATURE GRANULOCYTES ABSOLUTE 0.04(H) 0.00 - 0.03 K/uL 07/10/2018 5:[address] [facility] Blood Venipuncture / Unknown 07/10/2018 4:05 AM CDT 07/10/2018 4:39 AM CDT Micki King MD HEMATOLOGY ORDERABLE S [facility]# [id number] [address] [place] [address] * PATHOLOGY (07/09/2018 10:23 AM CDT) CASE REPORT Surgical Pathology Report ? Case: [id number] ? Authorizing Provider: ??Micki King MD ? Collected: ? 07/09/2018 10:23 AM ? Ordering Location: ? [facility] ?Received: ?07/09/2018 02:02 PM ? Operating Room ? Pathologist: ? Kaila Cruz MD ? Specimens: ?? A) - Periaortic lymph nodes, left, Periaortic Lymph Nodes (Bilateral) ? B) - Uterus, Cervix, Ovaries, bilateral, Fallopian tubes, bilateral ? C) - Pelvic lymph nodes, right ? D) - Pelvic lymph nodes, left ? 8 7:50 AM T [facility] FINAL DIAGNOSIS Uterus, cervix, hysterectomy: - Endocervical [...] lymph nodes (0/5). 8 7:50 AM [facility] IMEN DESCRIPTION (A) Periaortic lymph nodes (bilateral); (B) uterus, cervix, bilateral ovaries and bilateral fallopian tubes; (C) right pelvic lymph nodes; (D) left pelvic lymph nodes. 8 7:50 AM [facility] OPERATIVE PROCEDURE Hysterectomy total da Geeta SI, bilateral salpingo-oophorectom y da Geeta SI, pelvic lymph node staging da Geeta SI. 8 7:50 AM [facility] CLINICAL DIAGNOSIS Endometrial cancer. 8 7:50 AM [facility] GROSS DESCRIPTION The specimens are received in four containers labeled Jolene Cedillo. Part A is a additionally labeled periaortic [...] fimbriated end, and has a pinpoint lumen. Production Assembly Supervisor sections are submitted as follows: B1-anterior cervix; B2 and B3-anterior lower uterine segment, with each section containing an entire endocervical polyp; B4 through B6-anterior endomyometrium with lesion show depth of invasion; B7-posterior cervix; B8-posterior lower uterine segment; B9 through S82-twdmgbeey endomyometrium with lesion; A91-bagfor endometrial polyp; P24-bsdxduwh of intramural masses; S99-oakool right ovary; N76-shari fallopian tube, including the entire fimbriated end; W52-cten ovary; R63-syyg fallopian tube, including the entire fimbriated end. [...] node; D4-one bisected lymph node; D5 through P55-yibnao largest lymph node. CAMILO/asmita 8 7:50 AM [facility] MICROSCOPIC DESCRIPTION The slides are labeled [id number] and Jolene Cedillo. Microscopic description substantiates the above cited diagnoses. Additional deeper levels and cytokeratin cocktail stain were performed on one section of the left pelvic lymph nodes. These are negative for tumor. 8 7:50 AM [facility] SPECIAL AND IMMUNOPEROXIDASE STAINS This section reports [...] specific and has limitations. 8 7:50 AM [facility] SYNOPTIC REPORT ENDOMETRIUM ??(Endometrium - All Specimens) [...] and nonsentinel): ?9 ?? Number of Pelvic Coxsackie Nodes Examined: ?0 ?? Laterality of Pelvic Node(s) Examined: ?Right ?? Laterality of Pelvic Node(s) Examined: ?Left ?? Number of Para-aortic Nodes with Macrometastasis: ?0 ?? Number of Para-aortic Nodes with Micrometastasis: ?0 ?? Number of Para-aortic Nodes with Isolated Tumor Cells: ?0 ?? Total Number of Para-aortic Node(s) Examined (sentinel and nonsentinel): ?3 ?? Number of Para-aortic Coxsackie Nodes Examined: ?0 ?? Laterality of Para-aortic Node(s) Examined: ?Cannot be determined PATHOLOGIC STAGE CLASSIFICATION (pTNM, AJCC 8th Edition) ?? Primary Tumor (pT): ?pT1a ?? Regional Lymph Nodes (pN): ? Category (pN): ?pN0 FIGO STAGE ?? FIGO Stage: ?IA 8 7:50 AM [facility] COMMENT Special stain and/or immunohistochemical results are interpreted with controls that demonstrate appropriate staining reactions. Note on use of immunocytochemistry reagents: This test was developed and its performance characteristic determined by [facility], Department of [...] WF, WB and WH are performed by [address], [address]. All other case types are performed by [address] [facility], [address]. 8 7:50 AM [facility] Tissue (Periaortic lymph nodes, left) Collection / [...] CDT Micki King MD PATHOLOGY/CYTOLOGY O CHERI [facility] - [facility]# [id number] [address] [place] [address] * VERIFICATION BLOOD GROUP (07/09/2018 7:19 AM CDT) ABO GROUP B 07/09/2018 8:06 AM CDT [facility] RH (D) TYPE Positive 07/09/2018 8:06 AM CDT [facility] -- [facility] Blood Collection / Unknown 07/09/2018 7:19 AM CDT 07/09/2018 7:46 AM CDT Marguerite Hernandez MD BLOOD BANK DANILO WRAY Performing Organization Address City/[facility]/ZIP Co de Phone Number [facility] -- [facility] CLOK# [id number] [address] [place] [address] * PREPARE RED BLOOD CELLS (06/27/2018 11:51 AM CDT) COMPONENT TYPE [id number] [facility] -- [facility] COMPONENT IDENTIFICATION [id number]-* [facility] UNIT ABO B [facility] UNIT RH POS [facility] -- [place] COMPONENT STATUS Returned [facility] -- [facility] COMPONENT EXPIRATION DATE/TIME [facility] -- [facility] COMPONENT CODING SYSTEM [address] [facility] -- [facility] 06/27/2018 11:5 1 AM CDT Micki King MD LAB TRANSFUSION DANILO WRAY Performing Organization Address [facility]/ZIP Co de Phone Number [facility] -- [facility] CLIA# [id number] [address] [place] [address] * PREPARE RED BLOOD CELLS (06/27/2018 11:51 AM CDT) Pathologist [facility] COMPONENT TYPE [id number] [facility] -- [facility] COMPONENT IDENTIFICATION [id number] [facility] -- [facility] UNIT ABO B [facility] -- [facility] UNIT RH POS [facility] -- [facility] COMPONENT STATUS Returned [facility] COMPONENT EXPIRATION DATE/TIME [facility] -- [facility] COMPONENT CODING SYSTEM [address] [facility] -- [facility] 06/27/2018 11:5 1 AM CDT Micki WISE TRANSFUSION DANILO WRAY Performing Organization Address [facility] Co de Phone Number [facility] [id number] [address] [place] [address] documented in this encounter Visit Diagnoses Diagnosis Encounter for blood typing- Primary documented in this encounter Administered Medications Inactive Administered Medications - up to 3 most recent administrations Medication Order MAR Action Action Date Dose Rate Site dextrose 5 % in water 250 [...] (See admin instructions), Routine, Post-op - Floor lactated Ringers solution IV, at 150 mL/hr, PRE-PROCEDURE CONTINUOUS, Starting on Sun07/09/18 at 0730, Until Sun07/09/18 at 1454, Routine New Bag 07/09/2018 12:40 PM CDT Continue from Pre-Op 07/09/2018 9:23 AM CDT New Bag 07/09/2018 7:41 AM CDT 150 mL/hr lidocaine PF 2 % (XYLOCAINE MPF) injection 0.3 mL 0.3 mL, Infiltration, PRE-PROCEDURE ONCE, 1 dose, Starting on Sun07/09/18 at 0718, Until Sun07/09/18 at 0741, Routine Given 07/09/2018 7:41 AM CDT 0.3 mL H and, Left methotrexate (RHEUMATREX) tablet 15 mg 15 mg, [...] Floor 1504 (New Bag - Provider: Brooke Dickens, RN)2114 (New Bag - Provider: Brenda Schrader, TAO) lactated Ringers solution (CANCELED) IV, at 150 [...] RN) documented in this encounter Care Teams Private Detective Relationship Specialty Start Date End Date Francisco Long MD PCP - General Internal Medicine 06/27/18 documented as of this encounter
--- OUTSIDE RECORDS SUMMARY | 2024-11-16 13:31 | XMS_ITS | Encounter Summary ---
Author Organization [facility] Address [address] [place] [address] Care Team Providers Care Meat Counter Worker Name Role Phone Unavailable Primary Care Provider Unavailabl e Encounter Details Date Type Department Care Team (Latest Contact Info) Description 03/28/2016 1:40 PM CDT - 03/28/2016 11:59 PM CDT [facility] [address] [place] [phone] [facility], External Provider [address] [place] [address] Discharge Disposition: Home or Self Care Social [...] Description 03/19/2025 10:45 AM CDT Appointment [facility] [address] [place] [address] Caron Mohan MD [address] [place] [address] 03/19/2025 11:30 AM CDT Office Visit [facility] Oncology and Hematology [address] [address] [address] [place] [phone] Caron Mohan MD [address] [facility] [place], [place] [id number] [place] [address] [place] [address] documented as of this encounter Procedures Procedure Name Priority Date/Time Associated Diagnosis Comments MAMMO PRIOR STUDY Routine 03/28/2016 1:4 0 PM CDT Follow up documented in this encounter Results * MAMMO PRIOR STUDY (03/28/2016 1:40 PM CDT) Narrative 09/17/2018 1:39 PM CDT This exam was auto finalized to allow images to be scanned to PACS. External Provider [facility] DIAGNOSTIC IMAGI NG ORDERABLES documented in this encounter Visit Diagnoses Diagnosis Follow up documented in this encounter
--- OUTSIDE RECORDS SUMMARY | 2024-11-16 15:23 | XMS_ITS | Patient Health Summary ---
Author Organization [facility] Address [address] [place] [address] Care Team Providers Care Hydraulic Dredge Operator Name Role Phone Francisco Long MD Primary Care Provider Unavail able Alex Nichols MD Unavailable [phone] Usha Bryan RN Unavailable [phone] Micki Cadena MD Unavailable [phone] Note from [facility],non-owned Affiliates and Associated Physician Practices is amultiple site organization consisting of ambulatory clinics and hospital sitesin [place], [place], [place] and [place]. This disclosure is being madepursuant to the Care Everywhere program and may not contain all information available regarding this patient. Last updated 18.[facility] Allergies No known active allergies Medications * [...] 7 days Resume when ok with your plate drying machine tender 3 refills left * ELIQUIS 5 MG [...] Comments Blood Pressure 117/64 01/08/2016 7:50 AM STEAM FINISHER Pulse 95 01/08/2016 7:50 AM STEAM FINISHER Temperature 36.7 ??C (98.1 ??F) 01/08/2016 7:50 AM CS T Respiratory Rate 18 01/08/2016 7:50 AM STEAM FINISHER Oxygen Saturation 93% 01/08/2016 7:50 AM STEAM FINISHER Inhaled Oxygen Concentration - - Weight 88.9 kg (196 lb) 01/06/2016 6:58 AM STEAM FINISHER Height 170.2 cm (5' 7 ) 01/06/2016 6:58 AM STEAM FINISHER Body Mass Index 30.7 01/06/2016 6:58 AM STEAM FINISHER Medical Devices Implanted Type Area Entry Level Administrative Assistant Device Identifier Shelf Expiration Date Model / Serial / Lot Amaury Bone [place] Implanted:Qty: 1 on 06/09/2015 by Alex Nichols MD at [facility] Left: Knee [employer] 12/27/2016 [id number] / / [id number] Kn Ins Vangurd Fem Cocr Intlok L 67.5mm Implanted:Qty: 1 on 06/09/2015 by Alex Nichols MD at [facility] Left: Knee [employer] 04/28/2025 [id number] / / [id number] Ty Tibial I Beam Fix Bar 75mm Implanted:Qty: 1 on 06/09/2015 by Alex Nichols MD at [facility] Left: Knee [employer] 03/26/2025 [id number] / / [id number] Butn Pat Arcom Wire Polyeth Xsm 28 X 8 Implanted:Qty: 1 on 06/09/2015 by Alex Nichols MD at [facility] Left: Knee [employer] 06/26/2019 [id number] / / [id number] Vangrd Ant Stblzd Brg 10mm X 75mm Implanted:Qty: 1 on 06/09/2015 by Alex Nichols MD at [facility] Left: Knee [employer] 10/26/2018 [id number] / / [id number] Brdg Tib Thalia Stbl 12mm X 71mm Implanted:Qty: 1 on 01/06/2016 by Alex Nichols MD at [facility] Right: Knee [employer] 11/24/2020 [id number] / / [id number] Amaury Bone [place] Hv Implanted:Qty: 1 on 01/06/2016 by Alex Nichols MD at [facility] Right: Knee [employer] 08/25/2017 [id number] / / [id number] Ty Tibial I Beam Fix Bar 71mm Implanted:Qty: 1 on 01/06/2016 by Alex Nichols MD at [facility] Right: Knee [employer] 11/30/2025 [id number] / / [id number] Ins Kn Vangurd Fem Cocr R-Intlok 67.5mm Implanted:Qty: 1 on 01/06/2016 by Alex Nichols MD at [facility] Right: Knee [employer] 11/01/2025 [id number] / / [id number] Butn Pat Arcom Wire Polyeth Xsm 28 X 8 Implanted:Qty: 1 on 01/06/2016 by Alex Nichols MD at [facility] Right: Knee [employer] 11/11/2020 [id number] / / [id number] Procedures * EYE EXAM(Performed 10/09/2022) * VAS [...] Procedure Note Saqib Brito MD - 03/01/2016 [facility] Health Vascular [place] [facility] [address] [address] [facility] [address], [address] [place] [address] Lower Extremity Venous Ultrasound Report Pat.Name: JOLENE GORDON.ID: [id number] St.Date: 02/29/2016 Exam Time: 1:24:00 PM Study Type:LE Venous Age: 1 1945,70Y Sex: FEMALE Sonogrphr: Peter Suh RVT Pat. Stat.:Outpatient ICD - 9: I82.491 Acute embolism and thrombosis of other specified deep vein of right lower extremity CPT - 4: 94770 Procedures:Lower Extremity Venous - Right Race: 2 Visit ID: [id number] SUMMARY: Chronic, non-occluding DVT right popliteal and [...] (ABNORMAL) HGB HCT PANEL (01/08/2016 1:37 AM STEAM FINISHER) Only the most recent of4 resultswithin the time period is included. Hemoglobin 10.8(L) 12.0 - 15.6 gm/dL 01/08/2016 1:58 AM STEAM FINISHER [facility] Hematocrit 33.6(L) 35.9 - 45.5 % 01/08/2016 1:58 AM STEAM FINISHER [facility] Blood BLOOD SPECIMEN / Unknown 01/08/2016 1:37 AM STEAM FINISHER 01/08/2016 1:55 AM STEAM FINISHER Alex Nichols MD LAB - HEMATOLOGY ORD ERABLES Performing Organization Address City/State/[facility] Co de Phone Number [facility] [address] [place] [address] * NEURAXIAL BLOCK (01/06/2016 8:58 AM STEAM FINISHER) Narrative Uche Acosta APRN-CRNA - 01/06/2016 8:58 AM STEAM FINISHER Uche Acosta APRN-CRNA ? 01/06/2016 ??8:58 AM [...] ??GINO Vinson Notes: ??[facility] spinal tray lot #[id number] ??Exp. 12/2016. Alex Nichols MD GENERAL ANESTHESIA O RDERABLES * EKG 12-LEAD (12/16/2015 10:15 AM STEAM FINISHER) Only the most recent of2 resultswithin the time period is included. Ventricular Rate 80 BPM [facility] Atrial Rate 80 BPM [facility] P-R Interval 178 ms [facility] QRS Duration ms 86 ms [facility] Q-T Interval ms 396 ms [facility] QTC Calculation (Bezet) 456 ms [facility] Calculated P [place] 52 degrees [facility] Calculated R [place] -19 degrees [facility] Calculated T [place] 52 degrees [facility] Interpretation EKG Normal sinus rhythm Normal ECG When compared with ECG of 19-MAY-2015 08:31, No significant change was found Confirmed by PHU SPANGLER GORGE ([id number]) on 12/16/2015 11:41:27 AM [facility] 12/16/2015 10:1 5 AM STEAM FINISHER 12/16/2015 11:41 AM [facility] Alex Nichols MD ECG ORDERABLES [facility] * (ABNORMAL) CBC W AUTO DIFFERENTIAL (12/16/2015 9:33 AM STEAM FINISHER) WBC 6.1 4.4 - 10.7 x10^9/L 12/16/2015 10:35 AM STEAM FINISHER [facility] WBC Corrected x10^9/L 12/16/2015 10:35 AM STEAM FINISHER [facility] RBC 4.79 3.80 - 5.20 x10^12/L 12/16/2015 10:35 AM STEAM FINISHER [facility] Hemoglobin 12.8 12.0 - 15.6 gm/dL 12/16/2015 10:35 AM [facility] Hematocrit 39.9 35.9 - 45.5 % 12/16/2015 10:35 AM [facility] MCV 83.3 80.7 - 98.3 fl 12/16/2015 10:35 AM [facility] MCH 26.7 26.7 - 34.0 pg 12/16/2015 10:35 AM [facility] MCHC 32.1 30.8 - 35.9 gm/dL 12/16/2015 10:35 AM [facility] Platelet Count 224 153 - 416 x10^9/L 12/16/2015 10:35 AM [facility] RDW-CV 17.4(H) 12.1 - 14.9 % 12/16/2015 10:35 AM [facility] MPV 9.7 9.4 - 12.9 fl 12/16/2015 10:35 AM [facility] Neutrophils % 79.9(H) 44.0 - 73.0 % 12/16/2015 10:35 AM [facility] Lymphocytes % 12.0(L) 20.0 - 43.0 % 12/16/2015 10:35 AM [facility] Monocytes % 4.4(L) 5.0 - 13.0 % 12/16/2015 10:35 AM [facility] Eosinophils % 2.8 0.0 - 6.0 % 12/16/2015 10:35 AM [facility] Basophils % 0.7 0.0 - 2.0 % 12/16/2015 10:35 AM [facility] Immature Granulocytes 0.2 0 - 1 % 12/16/2015 10:35 AM [facility] Neutrophil Absolute 4.87 2.01 - 7.14 x10^9/L 12/16/2015 10:35 AM [facility] Lymphocytes Absolute 0.73(L) 1.07 - 3.94 x10^9/L 12/16/2015 10:35 AM [facility] Monocytes Absolute 0.27 0.26 - 1.07 x10^9/L 12/16/2015 10:35 AM [facility] Eosinophils Absolute 0.17 0 - 0.47 x10^9/L 12/16/2015 10:35 AM [facility] Basophils Absolute 0.04 0 - 0.08 x10^9/L 12/16/2015 10:35 AM [facility] Immature Granulocytes Absolute 0.01 0.00 - 0.06 x10^9/L 12/16/2015 10:35 AM [facility] nRBC Auto 0 /100 WBC 12/16/2015 10:35 AM [facility] Blood BLOOD SPECIMEN / Unknown 12/16/2015 9:33 AM STEAM FINISHER 12/16/2015 10:32 AM [facility] Alex Nichols MD LAB - HEMATOLOGY ORD ERABLES [facility] [address] [place] [address] * (ABNORMAL) COMPREHENSIVE METABOLIC PANEL (12/16/2015 9:33 AM [facility]) Glucose 200(H) 74 - 106 mg/dL 12/16/2015 10:55 AM [facility] Sodium 141 136 - 145 mmol/L 12/16/2015 10:55 AM [facility] Potassium 3.9 3.5 - 5.1 mmol/L 12/16/2015 10:55 AM [facility] Chloride 104 98 - 107 mmol/L 12/16/2015 10:55 AM [facility] CO2 31 22 - 31 mmol/L 12/16/2015 10:55 AM [facility] Calcium 8.9 8.5 - 10.1 mg/dL 12/16/2015 10:55 AM [facility] Anion Gap 6 5 - 20 mmol/L 12/16/2015 10:55 AM [facility] BUN 18 7 - 21 mg/dL 12/16/2015 10:55 AM [facility] Creatinine 0.92 0.50 - 1.30 mg/dL 12/16/2015 10:55 AM [facility] Alkaline Phosphatase 68 38 - 126 U/L 12/16/2015 10:55 AM [facility] ALT 25 12 - 78 U/L 12/16/2015 10:55 AM [facility] AST 14 5 - 40 U/L 12/16/2015 10:55 AM [facility] Protein Total 6.8 6.4 - 8.2 gm/dL 12/16/2015 10:55 AM STEAM FINISHER [facility] Albumin 3.5 3.4 - 5.0 gm/dL 12/16/2015 10:55 AM STEAM FINISHER [facility] Bilirubin Total 0.4 0.2 - 1.0 mg/dL 12/16/2015 10:55 AM STEAM FINISHER [facility] eGFR by MDRD >60 >60 mL/min/1.7 3m2 12/16/2015 10:55 AM STEAM FINISHER [facility] eGFR by MDRD >60 >60 mL/min/1.7 3m2 12/16/2015 10:55 AM STEAM FINISHER [facility] Blood BLOOD SPECIMEN / Unknown 12/16/2015 9:33 AM STEAM FINISHER 12/16/2015 10:32 AM STEAM FINISHER Alex Nichols MD LAB - CHEMISTRY DANILO WRAY [facility] [address] [place] [address] * CULTURE MSSA/MRSA (12/16/2015 8:35 AM STEAM FINISHER) Only the most recent of2 resultswithin the time period is included. Culture Negative for MRSA/MSSA SUZANNE 12/17/2015 2:28 PM [facility] MI[facility]OLOG[facility] Microbiology SPECIMEN FROM NASAL FOSSAE / Unknown 12/16/2015 8:35 AM STEAM FINISHER 12/16/2015 10:31 AM STEAM FINISHER Alex Nichols MD LAB - MICROBIOLOGY O RDSALLY [facility] MICROBIOLOGY [address] [place] [address] [phone] * XR KNEE 3 VW LEFT (07/23/2015 [...] Mtz PA-C DIAGNOSTIC IMAGING ORDERABLES Care Teams Hydraulic Dredge Operator Relationship Specialty Start Date End Date Francisco Long MD PCP - General Internal Medicine 07/03/14 [place] [address] [place] [address] Orthopedic Surgery 04/22/15 Usha Bryan, TAO [address] [place] [address] Superintendent Geophysical Laboratory 01/07/16 [place] [address] [place] [address] Surgical Oncologist Surgical Oncology 07/05/18
--- OUTSIDE RECORDS SUMMARY | 2024-11-16 15:23 | XMS_ITS | Encounter Summary ---
Author Organization [facility] Address [address] [facility] [place] [address] Care Team Providers Care Rcis Name Role Phone Francisco Long MD Primary Care Provider Unavail able Alex Nichols MD Unavailable [phone] Usha Bryan RN Unavailable [phone] Reason for Visit * Reason Comments Follow-up rtka 01/06/16, ltka Encounter Details Date Type Department Care Team (Late st Contact Info) Description 01/02/2017 10:20 AM ENVELOPE MAKER Office Visit [facility] Orthopedics [address] [place] [phone] [place] [address] [address] Presence of right artificial knee [...] 01/09/2017 1:07 PM CST Updated dx codes LOPE MAKER * Cornelio Alba PA-C - 01/02/2017 10:52 AM CST 1 yr out on right 1 1/2 left on left Legs hurt at nite No swelling or f/c no numbness LOPE MAKER * Liane Weber - 01/02/2017 10:23 AM CST rtka 01/06/16, ltka 06/09/15 LOPE MAKER documented in this encounter H&P Notes * [...] office in about 3 years. JO ANN Granados M.D. Electronically Signed 01/09/2017 11:01:47 Electronically Signed 01/09/2017 11:04:16 PJD/MedQ #: [id number] LOPE MAKER documented in this encounter Plan of Treatment Pending Results Name Type Priority Associated Diagnoses Date /Time XR KNEE BILAT 3 VIEWS Imaging Routine History of bilateral knee replacement 01/02/2017 10:23 AM ENVELOPE MAKER Scheduled Orders Name Type Priority Associated Diagnoses [...] means documented in this encounter Care Teams Rcis Relationship Specialty Start Date End Date Francisco Long MD PCP - General Internal Medicine 07/03/14 [place] [address] [place] [address] Orthopedic Surgery 04/22/15 [place] [address] [place] [address] Relief Charge Nurse 01/07/16 documented as of this encounter
--- OUTSIDE RECORDS SUMMARY | 2024-11-16 15:23 | XMS_ITS | Encounter Summary ---
Author Organization [facility] Address [address] [facility] [address] Care Team Providers Care Brake Shoe Rebuilder Name Role Phone Francisco Long MD Primary Care Provider Unavail able Alex Nichols MD Unavailable Usha Bryan RN Unavailable [phone] Reason for Visit * Reason Onset Date Comments Question 01/10/2016 Encounter Details Date Type Department Care Team (Late st Contact Info) Description 01/10/2016 Telephone [facility] Orthopedics [address] [facility] [address] [place] [address] [place] [address] [address] Question Social History Tobacco Use [...] Aditi Greer RN - 01/10/2016 10:04 AM SALES PROJECT ADMINISTRATOR Home health nurse called to ask if patient should continue methotrexate as ordered per discharge instructions. Advised that patient should continue to hold this medication for 1 week from date of surgery. Okay to resume methotrexate on . S PROJECT ADMINISTRATOR documented in this encounter Plan of Treatment Not on file documented as of this encounter Visit Diagnoses Not on filedocumented in this encounter Care Teams Brake Shoe Rebuilder Relationship Specialty Start Date End Date Francisco Long MD PCP - General Internal Medicine 07/03/14 [place] [address] [place] [address] [id number] Orthopedic Surgery 04/22/15 [place] [address] [address] [place] [address] Investigative Agent 01/07/16 documented as of this encounter
--- OUTSIDE RECORDS SUMMARY | 2024-11-16 15:23 | XMS_ITS | Encounter Summary ---
Author Organization [facility] Address [address] [facility] [place] [address] Care Team Providers Care Electronic Masking System Operator Name Role Phone Francisco Long MD Primary Care Provider Unavail able Alex Nichols MD Unavailable [phone] Usha Bryan RN Unavailable [phone] Reason for Referral * Radiology Services (Routine) - Closed Specialty Diagnoses / Procedures Referred By Contac t Referred To Contact Vascular Lab Diagnoses Right leg pain Aftercare following right knee joint replacement surgery Procedures VAS [place] [address] [place] [address] Referral ID Status Reason Start Date Expiration Date Visits Re quested Visits Authorized [id number] Closed 02/01/2016 07/30/2016 1 1 [facility] COORDINATOR Reason for Visit * Reason Comments Follow-up POv of RTKA 3 wks ou t Encounter Details Date Type Department Care Team (Late st Contact Info) Description 02/01/2016 2:30 PM COMM[facility]ITY HEALTH PROGRAM COORDINATOR Office Visit [facility] Orthopedics [address] [place] [address] [place] [address] [place] [address] Right leg pain (Primary Dx); [...] Lupe Duran MA - 02/01/2016 5:16 PM COMMUNITY HEALTH PROGRAM COORDINATOR Please call the office with any questions or concerns. [facility] PRO[facility] COORDINATOR documented in this encounter Progress Notes * Lupe Duran MA - 02/01/2016 3:19 PM CST Venous doppler came back positive. [facility] COORDINATOR * Cornelio Alba PA-C - 02/01/2016 2:51 PM CST 3 weeks out upset stomach 2-115 Get doppler [facility] PRO[facility] COORDINATOR * Elias Trujillo - 02/01/2016 2:26 PM CST POv of RTKA 3 wks out [facility] PRO[facility] COORDINATOR documented in this encounter H&P Notes * [...] 12:10:04 Electronically Signed 02/07/2016 12:14:42 PJD/MedQ #: [id number] documented in this encounter Plan of Treatment Not on file documented as of this encounter Results * VAS RIGHT VENOUS DUPLEX LE (02/01/2016 3:10 PM COMMUNITY HEALTH PROGRAM COORDINATOR) Anatomical Region Laterality Modality Ultrasound 02/01/2016 4:01 PM COMMUNITY HEALTH PROGRAM COORDINATOR Narrative Procedure Note Saqib Brito MD - 02/03/2016 [facility] Health Vascular [place] [address], [address] [place] [address] Lower Extremity Venous Ultrasound Report Pat.Name: SHAUNA GORDON.ID: [id number] St.Date: 02/01/2016 Exam Time: 4:01:00 PM Study Type:LE Venous Age: 1 1945,70Y Sex: FEMALE Sonogrphr: Peter Suh RVT Pat. Stat.:Outpatient ICD - 9: I82.491 Acute embolism and thrombosis of other specified deep vein of right lower extremity CPT - 4: 83868 Procedures:Lower Extremity Venous - Right Race: 2 Visit ID: [id number] SUMMARY: Acute deep vein thrombosis of the [...] surgery documented in this encounter Care Teams Electronic Masking System Operator Relationship Specialty Start Date End Date Francisco Long MD PCP - General Internal Medicine 07/03/14 [place] [address] [place] [address] Orthopedic Surgery 04/22/15 Usha Bryan, TAO [address] [place] [address] Patient Care 01/07/16 documented as of this encounter
--- OUTSIDE RECORDS SUMMARY | 2024-11-16 15:23 | XMS_ITS | Encounter Summary ---
Author Organization [facility] Address [address] [facility] [place] [address] Care Team Providers Care Icer Machine Operator Name Role Phone Francisco Long MD Primary Care Provider Unavail able Alex Nichols MD Unavailable [phone] Usha Bryan RN Unavailable [phone] Reason for Visit * Reason Comments Follow-up RV/right knee sx [id number] Encounter Details Date Type Department Care Team (Late st Contact Info) Description 07/04/2016 10:30 AM CDT Office Visit [facility] Orthopedics [address] [place] [phone] [place] [address] [address] Presence of right artificial knee [...] 07/04/2016 10:16 AM CDT RV/right knee sx [id number] documented in this encounter H&P Notes * [...] M.D. Electronically Signed 07/10/2016 11:46:48 WCS/MedQ #: [id number] documented in this encounter Plan of Treatment Not on file documented as of this encounter Visit Diagnoses Diagnosis Presence of right artificial knee joint- Primary Knee joint replacement by other means documented in this encounter Care Teams Icer Machine Operator Relationship Specialty Start Date End Date Francisco Long MD PCP - General Internal Medicine 07/03/14 [place] [address] [place], [place] [id number] Orthopedic Surgery 04/22/15 Usha Bryan, TAO [address] [place] [address] [place] Artist 01/07/16 documented as of this encounter
--- OUTSIDE RECORDS SUMMARY | 2024-11-16 15:23 | XMS_ITS | Encounter Summary ---
Author Organization [facility] Address [address] [place] [address] Care Team Providers Care Solvent Mixer Name Role Phone Francisco Long MD Primary Care Provider Unavail able Alex Nichols MD Unavailable [phone] Usha Bryan RN Unavailable [phone] Reason for Visit * Reason Onset Date Comments Results 03/07/2016 Scheduling 03/07/2016 Encounter Details Date Type Department Care Team (Late st Contact Info) Description 03/07/2016 Telephone [facility] Orthopedics [address] [address] [place] [address] [address] Results; Scheduling Social History Tobacco [...] on filedocumented in this encounter Care Teams Solvent Mixer Relationship Specialty Start Date End Date Francisco Long MD PCP - General Internal Medicine 07/03/14 [place] [address] [place] [address] Orthopedic Surgery 04/22/15 [place] [address] [address] [place], [place] [id number] Oracle Manufacturing Consultant 01/07/16 documented as of this encounter
--- OUTSIDE RECORDS SUMMARY | 2024-11-16 15:23 | XMS_ITS | Encounter Summary ---
Author Organization [facility] Address [address] [place] [address] Care Team Providers Care Fire Behavior Analyst Name Role Phone Francisco Long MD Primary Care Provider Unavail able Alex Nichols MD Unavailable Reason for Visit * Auth/Cert (Routine) - Closed Specialty Diagnoses / Procedures Referred By Contac t Referred To Contact Diagnoses Unilateral primary osteoarthritis, right knee Procedures NM TOTAL KNEE ARTHROPLASTY Referral ID Status Reason Start Date Expiration Date Visits Re quested Visits Authorized [id number] Closed 12/24/2015 06/21/2016 1 1 Encounter Details Date Type Department Care Team (Late st Contact Info) Description 01/06/2016 8:04 AM DRY CLEANING MANAGER Anesthesia Event [facility] - Perioperative Surgery [address] [place] [address] Uche Acosta, PATTI-FEEDER DRIVER [id number] [place] [address] [place] [address] Anesthesia Record Procedure Summary Procedure Name Responsible [...] by Tiff Martínez RN 01/08/16 1905 by [facility], Auto Release documented in this encounter Social [...] filed. ASA/AQI Tracking Events: No value filed. CLEANING MANAGER documented in this encounter Procedure Notes * [...] GINO Vinson Notes: [facility] tray lot #[id number] Exp. 12/2016. CLEANING MANAGER documented in this encounter Consult Notes * [...] Plan accepted yes Discussed anesthesia plan with: FEEDER DRIVER. CLEANING MANAGER documented in this encounter Plan of Treatment Not on file documented as of this encounter Procedures Procedure Name Priority Date/Time Associated Diagnosis Comments NEURAXIAL BLOCK Routine 01/06/2016 8:58 AM DRY CLEANING MANAGER documented in this encounter Results * NEURAXIAL BLOCK (01/06/2016 8:58 AM DRY CLEANING MANAGER) Narrative Uche Acosta APRN-CRNA - 01/06/2016 8:58 AM DRY CLEANING MANAGER Uche Acosta APRN-CRNA ? 01/06/2016 ??8:58 AM [...] ??GINO Vinson Notes: ??[facility] tray lot #[id number] ??Exp. 12/2016. Alex Nichols MD GENERAL ANESTHESIA [...] Anesthesia Intra-op $ Given 01/06/2016 8:10 AM DRY CLEANING MANAGER 2 mL ceFAZolin 2 g (ANCEF) IVPB PRN, Starting on Piedad 01/06/16 at 0804, Until Piedad 01/06/16 at 0938, Anesthesia Intra-op $ Given 01/06/2016 8:04 AM DRY CLEANING MANAGER 2 g dexamethasone (DECADRON) injection PRN, Nausea/Vomiting, Starting on Piedad 01/06/16 at 0815, Until Piedad 01/06/16 at 0938, Anesthesia Intra-op $ Given 01/06/2016 8:15 AM DRY CLEANING MANAGER 8 mg lactated ringers infusion CONTINUOUS PRN, Starting on Piedad 01/06/16 at 0804, Until Piedad 01/06/16 at 0938, Anesthesia Intra-op $ New Bag/Syringe 01/06/2016 8:04 AM DRY CLEANING MANAGER midazolam (VERSED) injection PRN, Starting on Piedad 01/06/16 at 0802, Until Piedad 01/06/16 at 0938, Anesthesia Intra-op $ Given 01/06/2016 8:02 AM DRY CLEANING MANAGER 2 mg ondansetron (ZOFRAN) injection PRN, Nausea/Vomiting, Starting on Piedad 01/06/16 at 0810, Until Piedad 01/06/16 at 0938, Anesthesia Intra-op $ Given 01/06/2016 8:15 AM DRY CLEANING MANAGER 4 mg propofol (DIPRIVAN) injection CONTINUOUS PRN, Starting on Piedad 01/06/16 at 0815, Until Piedad 01/06/16 at 0938, Anesthesia Intra-op $ New Bag/Syringe 01/06/2016 8:15 AM DRY CLEANING MANAGER tranexamic acid (CYKLOKAPRON) injection PRN, Starting on Piedad 01/06/16 at 0829, Until Piedad 01/06/16 at 0938, Anesthesia Intra-op $ Given 01/06/2016 8:29 AM DRY CLEANING MANAGER 900 mg documented in this encounter Care Teams Fire Behavior Analyst Relationship Specialty Start Date End Date Francisco Long MD PCP - General Internal Medicine 07/03/14 [place] [address] [place] [address] Orthopedic Surgery 04/22/15 documented as of this encounter
--- OUTSIDE RECORDS SUMMARY | 2024-11-16 15:23 | XMS_ITS | Encounter Summary ---
Author Organization [facility] Address [address] [facility] [place] [address] Care Team Providers Care Commissary Officer Name Role Phone Francisco Long MD Primary Care Provider Unavail able Alex Nichols MD Unavailable [phone] Usha Bryan RN Unavailable [phone] Micki Cadena MD Unavailable [phone] Reason for Visit * Reason Onset Date Comments Question 07/05/2018 Encounter Details Date Type Department Care Team (Late st Contact Info) Description 07/05/2018 Telephone [facility] Orthopedics [id number] [place] [id number] [place] [address] [address] Question Social History Tobacco Use [...] ex. Call back, etc..) call back #: [phone] with that information documented in this encounter Plan of Treatment Not on file documented as of this encounter Visit Diagnoses Not on filedocumented in this encounter Care Teams Commissary Officer Relationship Specialty Start Date End Date Francisco Long MD PCP - General Internal Medicine 07/03/14 [place] [address] [place] [address] Orthopedic Surgery 04/22/15 Usha Bryan, TAO [address] [place] [address] Knuckle Bender 01/07/16 [place] [address] [place] [address] Surgical Oncologist Surgical Oncology 07/05/18 documented as of this encounter
--- OUTSIDE RECORDS SUMMARY | 2024-11-16 15:23 | XMS_ITS | Encounter Summary ---
Author Organization [facility] Address [address] [facility] [place] [address] Care Team Providers Care Lead Supply Worker Name Role Phone Francisco Long MD Primary Care Provider Unavail able Alex Nichols MD Unavailable [phone] Usha Bryan RN Unavailable [phone] Encounter Details Date Type Department Care Team (Late st Contact Info) Description 02/01/2016 Orders Only [facility] Orthopedics [address] [facility] [address] [place] [address] [place] [address] [facility] [address] [place] [address] Social History Tobacco Use Types [...] on filedocumented in this encounter Care Teams Lead Supply Worker Relationship Specialty Start Date End Date Francisco Long MD PCP - General Internal Medicine 07/03/14 [place] [address] [place] [address] Orthopedic Surgery 04/22/15 Usha Bryan, TAO [address] [place] [address] Financial Brokers 01/07/16 documented as of this encounter
--- OUTSIDE RECORDS SUMMARY | 2024-11-16 15:23 | XMS_ITS | Encounter Summary ---
Author Organization [facility] Address [address] [facility] [place] [address] Care Team Providers Care Beater And Pulper Feeder Name Role Phone Francisco Long MD Primary Care Provider Unavail able Alex Nichols MD Unavailable Usha Bryan RN Unavailable [phone] Micki Cadena MD Unavailable [phone] Encounter Details Date Type Department Care Team (Late st Contact Info) Description 01/31/2016 Therapy Visit [facility] Orthopedics [address] [address] [place] [address] [address] Social History Tobacco Use Types [...] on filedocumented in this encounter Care Teams Beater And Pulper Feeder Relationship Specialty Start Date End Date Francisco Long MD PCP - General Internal Medicine 07/03/14 [place] [address] [place] [address] Orthopedic Surgery 04/22/15 [place] [address] [place] [address] Hospital Education Coordinator 01/07/16 [place] [address] [place] [address] Surgical Oncologist Surgical Oncology 07/05/18 documented as of this encounter
--- OUTSIDE RECORDS SUMMARY | 2024-11-16 15:23 | XMS_ITS | Encounter Summary ---
Author Organization [facility] Address [address] [facility] [place] [address] Care Team Providers Care Network Operations Center Engineer Name Role Phone Francisco Long MD Primary Care Provider Unavail able Alex Nichols MD Unavailable [phone] Usha Bryan RN Unavailable [phone] Reason for Visit * Reason Onset Date Comments Question 01/21/2016 Encounter Details Date Type Department Care Team (Late st Contact Info) Description 01/21/2016 Telephone [facility] Orthopedics [address] [facility] [address] [place] [address] [place] [address] [address] Question Social History Tobacco Use [...] the low side, but not dangerously low. DUST SPRAYER * Telephone Encounter - Tania Hubbard MA - 01/21/2016 1:08 PM CST Patient called requesting to know what her Iron count was when she had her blood drawn on 01/06. Please advise DUST SPRAYER documented in this encounter Plan of Treatment Not on file documented as of this encounter Visit Diagnoses Not on filedocumented in this encounter Care Teams Network Operations Center Engineer Relationship Specialty Start Date End Date Francisco Lnog MD PCP - General Internal Medicine 07/03/14 [place] [address] [place] [address] [id number] Orthopedic Surgery 04/22/15 [place] [address] [place] [address] Manga Artist 01/07/16 documented as of this encounter
--- OUTSIDE RECORDS SUMMARY | 2024-11-16 15:23 | XMS_ITS | Encounter Summary ---
Author Organization [facility] Address [address] [place], [place] [address] [address] Care Team Providers Care Electron Gun Assembler Name Role Phone Francisco Long MD Primary Care Provider Unavail able Alex Nichols MD Unavailable [phone] Usha Bryan RN Unavailable [phone] Reason for Visit * Auth/Cert (Routine) - Closed Specialty Diagnoses / Procedures Referred By Contac t Referred To Contact Diagnoses Unilateral primary osteoarthritis, right knee Procedures CA TOTAL KNEE ARTHROPLASTY Referral ID Status Reason Start Date Expiration Date Visits Re quested Visits Authorized [id number] Closed 12/24/2015 06/21/2016 1 1 Encounter Details Date Type Department Care Team (Latest Contact Info) Description 01/06/2016 6:16 AM FOREST FIRE SPECIALIST SUPERVISOR - 01/08/2016 1:04 PM FOREST FIRE SPECIALIST SUPERVISOR Hospital Encounter [address] [address] [place] [id number] [address] Surgery General Discharge Disposition: Home [...] Comments Blood Pressure 117/64 01/08/2016 7:50 AM FOREST FIRE SPECIALIST SUPERVISOR Pulse 95 01/08/2016 7:50 AM FOREST FIRE SPECIALIST SUPERVISOR Temperature 36.7 ??C (98.1 ??F) 01/08/2016 7:50 AM CS T Respiratory Rate 18 01/08/2016 7:50 AM FOREST FIRE SPECIALIST SUPERVISOR Oxygen Saturation 93% 01/08/2016 7:50 AM FOREST FIRE SPECIALIST SUPERVISOR Inhaled Oxygen Concentration - - Weight 88.9 kg (196 lb) 01/06/2016 6:58 AM FOREST FIRE SPECIALIST SUPERVISOR Height 170.2 cm (5' 7 ) 01/06/2016 6:58 AM FOREST FIRE SPECIALIST SUPERVISOR Body Mass Index 30.7 01/06/2016 6:58 AM FOREST FIRE SPECIALIST SUPERVISOR documented in this encounter Functional Status Functional [...] 7 days Resume when ok with your child psychology teacher Natividad Diamond CONTINUE taking these medications Instructions Authorizing Provider ferrous sulfate 325 (65 FE) MG tablet Take 325 mg by mouth daily with breakfast losartan-hydrochlorothiazide 100-12.5 MG tablet Commonly known as: HYZAAR Take 1 Tab by mouth once daily. Other - once daily [employer] [place] Supplement - Instructed to stop 10 days before surgery CC: None ST FIRE SPECIALIST SUPERVISOR documented in this encounter Medications at Time [...] 7 days Resume when ok with your child psychology teacher 3 01/07/2016 Other once daily [employer] [...] discharge: Family () Proposed Home Health Agency: *[facility] Home Care Intake Lucy will be taken out on 01/20 by RN Pharmacy benefit: Yes. Equipment At Home: Cane-Straight;Chair-Shower;Walker-2 Wheeled;Crutches-Standard;Rotary Cutter List DME pt. requires but does not have.: None PCP: Francisco Long MD Physician Followup Appointment(s) Made: No Appointment(s) made with the following physician providers: Surgeon (02/01/16 @ 14:30 Dr. Nichols ) Reason why no appointment was made with physician: Appointment already made ?? Will continue to follow.?? For any questions or needs please contact: Vice Principal Name/Phone number: Usha Bryan RN Ascom ~ [phone] Pager ~ [phone] ST FIRE SPECIALIST SUPERVISOR * Tiff Parker RN - 01/08/2016 1:08 [...] right hand ,removed and patient went home. ST FIRE SPECIALIST SUPERVISOR * Natividad Diamond MD - 01/08/2016 12:32 [...] 100 mg, Oral, QDAY morphine 1 mg/ml DISPLAY SPECIALIST, Intravenous, DISPLAY SPECIALIST ?? senna-docusate (SENOKOT-S) tablet 1 Tab, Oral, [...] wiggles toes, normal sensation to light touch PLATEMAKER. Alert , moves all extremities against gravity [...] She was asked to f/u with her child psychology teacher to determine if she needed to conitnue her meds 3. Hypertension:?? Resume Cozaar Monitor blood pressure and adjust medications as needed ST FIRE SPECIALIST SUPERVISOR * Tiff Ashley RN - 01/08/2016 11:05 AM CST Ortho Progress Note 01/08/2016 Awake and alert Afebrile Dressing knee c/d/i Pain controlled Up in chair Recent Labs Component Name 01/08/16 0137 01/07/16 0450 12/16/15 0933 HGB 10.8* 10.6* 12.8 HCT 33.6* 33.2* 39.9 Progressing with PT Discharge home Follow up in office [address] FIRE SPECIALIST SUPERVISOR * Taniya Chatman PT - 01/08/2016 9:32 [...] Aching;Throbbing Bed Mobility: Supine to Sit: Complete [place] Sit to Supine: Modified [place] Transfers: Sit to Stand: Supervision, Set-Up, Cues (cues for technique, mod I p teaching) Stand to Sit: Modified [place] Mobility: Distance Ambulated: 220 FEET Ambulation: Assistive Device: Gait Belt;Walker-2 Wheeled Ambulation: Level of Assistance: Modified [place] Ambulation: Gait Deviations: Antalgic;[place] - Decreased;Heel Strike [...] the discharge summary. Taniya Luque DPT [phone] ST FIRE SPECIALIST SUPERVISOR * Taniya Chatman, PT - 01/08/2016 9:32 AM CST Problem: Mobility Goal: STG - Patient will ambulate 220 feet with wh walker and SBA of 1 Outcome: Goal Met Date Met: 01/08/16 Problem: Transfers Goal: STG - Patient to transfer to and from sit to supine independently Outcome: Goal Met Date Met: 01/08/16 Modified independent with knee ortho strap ST FIRE SPECIALIST SUPERVISOR * Liana Hauser RN - 01/08/2016 5:59 AM CST Mathematical Engineer Summary: The patient has been in NAD [...] extremity when OOB and ambulating. Medicated with [place] 10 for discomfort and is satisfied with the resulting reduction in pain. Voiding without c/o difficulty. ST FIRE SPECIALIST SUPERVISOR * Liana Hauser RN - 01/08/2016 5:54 [...] assistance.. Fall precautions will remain in effect ST FIRE SPECIALIST SUPERVISOR * Marguerite Daniels RN - 01/07/2016 4:59 PM CST Shift Summary Patient up with SBA and wheeled walker. [place] 10 given for pain control. No c/o nausea or vomiting.Voiding adequate amounts. Silver mepilex dressing clean, dry and intact. VSS. Anticipate possible discharge in the AM. Will continue to monitor. Marguerite Daniels RN ST FIRE SPECIALIST SUPERVISOR * Natividad Diamond MD - 01/07/2016 4:42 [...] mg, Oral, QDAY ?? morphine 1 mg/ml DISPLAY SPECIALIST, Intravenous, DISPLAY SPECIALIST ?? senna-docusate (SENOKOT-S) tablet 1 Tab, Oral, [...] wiggles toes, normal sensation to light touch PLATEMAKER. Alert , moves all extremities against gravity [...] blood pressure and adjust medications as needed ST FIRE SPECIALIST SUPERVISOR * Tiff Ashley RN - 01/07/2016 3:09 PM CST Ortho Progress Note 01/07/2016 Awake and alert. Afebrile. Pain controlled. Dressing knee c/d/i. Continue physical therapy. Up in chair Recent Labs Component Name 01/07/16 0450 12/16/15 0933 06/11/15 0509 HGB 10.6* 12.8 10.9* HCT 33.2* 39.9 33.3* ST FIRE SPECIALIST SUPERVISOR * Alison Buchanan, PT - 01/07/2016 3:04 [...] call light in reach. Bed alarm activated. ST FIRE SPECIALIST SUPERVISOR Alison Olea, PT - 01/07/2016 11:51 AM [...] following treatment with call light in reach. ST FIRE SPECIALIST SUPERVISOR * Marguerite Daniels RN - 01/07/2016 9:46 AM CST Problem: Pain/Discomfort Goal: Patient exhibits reduced pain/discomfort as evidenced by pain scores Outcome: Ongoing Patient currently rates pain at 4/10. Functional goal is 5/10. Goal: Patient uses pharmacological and non-pharmacological pain management strategies. Outcome: Ongoing Patient taking PRN [place] 5 for pain control. Ice packs applied [...] Bryan RN - 01/07/2016 9:10 AM CST [facility] Case Management Initial Assessment Case Management [...] Equipment at Home: Equipment At Home: Cane-Straight;Chair-Shower;Walker-2 Wheeled;Crutches-Standard;Rotary Cutter PCP: Francisco Long MD Physician Followup Appointment(s) [...] contact: Usha Bryan RN Case Manager Ascom: [phone] Pager: [phone] ST FIRE SPECIALIST SUPERVISOR * Pricilla Maher RN - 01/06/2016 4:57 PM CST Shift summary: To floor at 1130. VS stable. Knee dressing is dry and intact. Incontinent of urine x1. Up at bedside with PT.Fair appetite, denies nausea. Pain has been minimal and using Morphine PCAprn. No respiratory distress, remains on capnography and oxygen. Will continue to monitor. Pricilla Maher RN ST FIRE SPECIALIST SUPERVISOR * Felicia Wolfe PT - 01/06/2016 4:45 [...] as the discharge summary. Deborah Wolfe, PT [phone] ST FIRE SPECIALIST SUPERVISOR * Danwa Joseph, [facility] - 01/06/2016 7:34 AM CST [facility] Pharmacy Clinical Services Admission Medication Review [...] of Jolene Cedillo's care. Dawna Joseph RP ST FIRE SPECIALIST SUPERVISOR documented in this encounter H&P Notes * Cornelio Alba PA-C - 01/05/2016 8:43 AM CST [facility] PRE-OPERATIVE HISTORY AND PHYSICAL PATIENT NAME: Jolene Cedillo : 1945 CSN: [id number] HISTORY OF PRESENT ILLNESS: This is a 70 y.o. year-old female seen at the office regarding her right knee. The right knee has been symptomatic for over several years. Radiograph shows end-stage tricompartmental DJD of the right knee with [id number] degenerative changes along medial joint line/varus. Patient [...] tricompartmental DJD of the right knee with [id number]-lm-[id number] degenerative changes along medial joint line/varus. IMPRESSION: [...] expectations associated with this. Cornelio Alba PA-C ST FIRE SPECIALIST SUPERVISOR documented in this encounter Consult Notes * [...] sounds MSK: no clubbing, cyanosis or edema PLATEMAKER. Alert , No facial assymetry, clear speech. [...] CC: Francisco Long MD, Alex Nichols MD ST FIRE SPECIALIST SUPERVISOR documented in this encounter OR Notes * Operative - Alex Nichols MD - 01/06/2016 9:28 AM CST Operative Report Right Total Knee PATIENT: [facility]illo : 1945 [id number] AD[facility] DATE: 01/06/2016 DATE OF SURGERY: 01/06/2016 PHYSICIAN: Alex Nichols MD SURGEON: Alex Nichols MD MENTALLY IMPAIRED TEACHER: Alix IRAHETA The skilled assistance of the PA-C was necessary for the effective and successful completion of this case. The physician mobile unit assistant was essential for the proper positioning, [...] Disposition: PACU Complications: None Alex Nichols MD ST FIRE SPECIALIST SUPERVISOR documented in this encounter Plan of Treatment Not on file documented as of this encounter Procedures Procedure Name Priority Date/Time Associated Diagnosis Comments HGB HCT PANEL AM Draw 01/08/2016 1:37 AM FOREST FIRE SPECIALIST SUPERVISOR HGB HCT PANEL AM Draw 01/07/2016 4:50 AM FOREST FIRE SPECIALIST SUPERVISOR ARTHROPLASTY TOTAL KNEE 01/06/2016 7:39 AM FOREST FIRE SPECIALIST SUPERVISOR Special Needs BIOMET (CAMILO) NOTIFIED-NB documented in this encounter Results * (ABNORMAL) HGB HCT PANEL (01/08/2016 1:37 AM FOREST FIRE SPECIALIST SUPERVISOR) Hemoglobin 10.8(L) 12.0 - 15.6 gm/dL 01/08/2016 1:58 AM FOREST FIRE SPECIALIST SUPERVISOR [facility] Hematocrit 33.6(L) 35.9 - 45.5 % 01/08/2016 1:58 AM FOREST FIRE SPECIALIST SUPERVISOR [facility] Blood BLOOD SPECIMEN / Unknown 01/08/2016 1:37 AM FOREST FIRE SPECIALIST SUPERVISOR 01/08/2016 1:55 AM FOREST FIRE SPECIALIST SUPERVISOR Alex Nichols MD LAB - HEMATOLOGY ORD ERABLES [facility] [address] [place] [address] * (ABNORMAL) HGB HCT PANEL (01/07/2016 4:50 AM FOREST FIRE SPECIALIST SUPERVISOR) Hemoglobin 10.6(L) 12.0 - 15.6 gm/dL 01/07/2016 5:21 AM FOREST FIRE SPECIALIST SUPERVISOR [facility] Hematocrit 33.2(L) 35.9 - 45.5 % 01/07/2016 5:21 AM FOREST FIRE SPECIALIST SUPERVISOR [facility] Blood BLOOD SPECIMEN / Unknown 01/07/2016 4:50 AM FOREST FIRE SPECIALIST SUPERVISOR 01/07/2016 5:01 AM FOREST FIRE SPECIALIST SUPERVISOR Alex Nichols MD LAB - HEMATOLOGY ORD ERABLES [facility] [address] [place] [id number] documented in this encounter Visit Diagnoses Diagnosis [...] Discontinued, Post-op $ Given 01/08/2016 7:04 AM FOREST FIRE SPECIALIST SUPERVISOR 3 mL $ Given 01/07/2016 8:39 PM FOREST FIRE SPECIALIST SUPERVISOR 3 mL $ Given 01/07/2016 1:43 PM FOREST FIRE SPECIALIST SUPERVISOR 3 mL acetaminophen (TYLENOL) tablet 1,000 mg 1,000 mg, Oral, PRE-OP ONCE, 1 dose, On Sun01/06/16 at 0706, Pre-op $ Given 01/06/2016 7:14 AM FOREST FIRE SPECIALIST SUPERVISOR 1,000 mg aspirin (ASPIRIN) tablet 325 mg 325 mg, Oral, 2 TIMES DAILY, First dose (after last modification) on Sun01/07/16 at 0900, Until Discontinued, VTE PROPHYLAXIS, Post-op $ Given 01/08/2016 9:45 AM FOREST FIRE SPECIALIST SUPERVISOR 325 mg $ Given 01/07/2016 8:38 PM FOREST FIRE SPECIALIST SUPERVISOR 325 mg $ Given 01/07/2016 9:27 AM FOREST FIRE SPECIALIST SUPERVISOR 325 mg ceFAZolin (ANCEF) IVPB 1 g 1 g, at 100 mL/hr, Intravenous, EVERY 8 HOURS, 2 doses, First dose on Sun01/06/16 at 1400, Last dose on Sun01/06/16 at 2200, Total dose 2gm. Give two 1gm doses. $ Given 01/06/2016 9:41 PM FOREST FIRE SPECIALIST SUPERVISOR 1 g 100 mL/hr $ Given 01/06/2016 1:53 PM FOREST FIRE SPECIALIST SUPERVISOR 1 g 100 mL/hr ceFAZolin (ANCEF) IVPB 1 g 1 g, at 100 mL/hr, Intravenous, EVERY 8 HOURS, 2 doses, First dose on Sun01/06/16 at 1430, Last dose on Sun01/06/16 at 2230, Total dose 2gm. Give two 1gm doses. $ Given 01/06/2016 10:47 PM FOREST FIRE SPECIALIST SUPERVISOR 1 g 100 mL/hr $ Given 01/06/2016 2:25 PM FOREST FIRE SPECIALIST SUPERVISOR 1 g 100 mL/hr celecoxib (CeleBREX) capsule 400 mg 400 mg, Oral, PRE-OP ONCE, 1 dose, On Sun01/06/16 at 0706, Pre-op $ Given 01/06/2016 7:15 AM FOREST FIRE SPECIALIST SUPERVISOR 400 mg celecoxib (CeleBREX) capsule 400 mg 400 mg, Oral, DAILY, First dose on Sun01/07/16 at 0900, Until Discontinued, Post-op $ Given 01/08/2016 9:45 AM FOREST FIRE SPECIALIST SUPERVISOR 400 mg $ Given 01/07/2016 9:27 AM FOREST FIRE SPECIALIST SUPERVISOR 400 mg famotidine (PEPCID) tablet 20 mg 20 mg, Oral, PRE-OP ONCE, 1 dose, On Sun01/06/16 at 0717, Pre-op $ Given 01/06/2016 7:17 AM FOREST FIRE SPECIALIST SUPERVISOR 20 mg famotidine (PEPCID) tablet 20 mg 20 mg, Oral, 2 TIMES DAILY PRN, Heartburn, Starting on [place] 01/06/16 at 1124, Until 01/08/16 at 1405, Post-op $ Given 01/08/2016 11:27 AM FOREST FIRE SPECIALIST SUPERVISOR 20 mg hydrochlorothiazide (MICROZIDE) capsule 12.5 mg 12.5 mg, Oral, DAILY, First dose on Sun01/06/16 at 1415, Until Discontinued $ Given 01/08/2016 9:45 AM FOREST FIRE SPECIALIST SUPERVISOR 12.5 mg $ Given 01/06/2016 9:41 PM FOREST FIRE SPECIALIST SUPERVISOR 12.5 mg hydrocodone-acetaminophen (NORCO) 10-325 MG tablet 1 Tab 1 tablet, Oral, EVERY 4 HOURS PRN, Severe Pain, Starting on Piedad 01/06/16 at 1124, Until 01/08/16 at 1405, Post-op $ Given 01/08/2016 7:04 AM FOREST FIRE SPECIALIST SUPERVISOR 1 tablet $ Given 01/08/2016 1:29 AM FOREST FIRE SPECIALIST SUPERVISOR 1 tablet $ Given 01/07/2016 8:38 PM FOREST FIRE SPECIALIST SUPERVISOR 1 tablet hydrocodone-acetaminophen (NORCO) 5-325 MG tablet 1 Tab 1 tablet, Oral, EVERY 4 HOURS PRN, Moderate Pain, or for pain prior to painful procedures/therapy, Starting on Piedad 01/06/16 at 1124, Until 01/08/16 at 1405, Post-op $ Given 01/07/2016 9:26 AM FOREST FIRE SPECIALIST SUPERVISOR 1 tablet $ Given 01/07/2016 4:52 AM FOREST FIRE SPECIALIST SUPERVISOR 1 tablet iron polysaccharides (NIFEREX 150) capsule 150 mg 150 mg, Oral, DAILY, First dose on Piedad 01/06/16 at 1400, Until Discontinued $ Given 01/08/2016 9:45 AM FOREST FIRE SPECIALIST SUPERVISOR 150 mg $ Given 01/07/2016 9:27 AM FOREST FIRE SPECIALIST SUPERVISOR 150 mg lactated ringers infusion at 20 mL/hr, Intravenous, PRE-OP CONTINUOUS, Starting on Piedad 01/06/16 at 0715, Until Piedad 01/06/16 at 1124, Pre-op $ New Bag/Syringe 01/06/2016 7:13 AM FOREST FIRE SPECIALIST SUPERVISOR 20 mL/hr lactated ringers infusion at 100 mL/hr, Intravenous, CONTINUOUS, Starting on Piedad 01/06/16 at 1130, Until 01/08/16 at 1405, Post-op $ New Bag/Syringe 01/06/2016 8:07 PM FOREST FIRE SPECIALIST SUPERVISOR 100 mL/hr lidocaine buffered 1 % injection Infiltration, PRE-OP MULTIPLE, 3 doses, Starting on Piedad 01/06/16 at 0706, Until Piedad 01/06/16 at 1124, May be used (0.2 ml locally to anesthetize prior to insertion if patient has NKA to Lidocaine)., Pre-op $ Given 01/06/2016 7:13 AM FOREST FIRE SPECIALIST SUPERVISOR 0.5 mL losartan (COZAAR) tablet 100 mg 100 mg, Oral, DAILY, First dose on Piedad 01/06/16 at 1400, Until Discontinued, Hold for BP less than 120/80 $ Given 01/06/2016 9:46 PM FOREST FIRE SPECIALIST SUPERVISOR 100 mg magnesium hydroxide (MILK OF MAGNESIA) suspension 30 mL 30 mL, Oral, PRN, Constipation, Starting on Piedad 01/06/16 at 1124, Until 01/08/16 at 1405, Use MOM first. If MOM ineffective then use bisacodyl. If bisacodyl ineffective use Fleets enema. Shake well before using., Post-op $ Given 01/08/2016 7:05 AM FOREST FIRE SPECIALIST SUPERVISOR 30 mL morphine 1 mg/ml DISPLAY SPECIALIST Intravenous, DISPLAY SPECIALIST, Starting on Piedad 01/06/16 at 1009, Until 01/08/16 at 1405, DISPLAY SPECIALIST Dose: 1 mg dose with 12 min lockout (5 mg/hr) Contact physician if respiratory rate falls below 10/minute. If respiratory rate < 7/min administer naloxone (Narcan) 0.2 mg IV STAT, begin oxygen at 4-10 LPM, STOP DISPLAY SPECIALIST immediately, and contact physician., Post-op $ New Bag/Syringe 01/06/2016 10:20 AM FOREST FIRE SPECIALIST SUPERVISOR 1 mg ondansetron (disintegrating) (ZOFRAN ODT) tablet 4 mg 4 mg, Oral, PRE-OP ONCE, 1 dose, On Piedad 01/06/16 at 0706, Pre-op $ Given 01/06/2016 7:14 AM FOREST FIRE SPECIALIST SUPERVISOR 4 mg ondansetron (ZOFRAN) injection 4 mg 4 mg, Intravenous, EVERY 6 HOURS, 3 doses, First dose on Piedad 01/06/16 at 1530, Last dose on Sun01/07/16 at 0000, Post-op $ Given 01/06/2016 5:05 PM FOREST FIRE SPECIALIST SUPERVISOR 4 mg oxyCODONE CR 12hr (OxyCONTIN) tablet 10 mg 10 mg, Oral, EVERY 12 HOURS, 2 doses, First dose on Piedad 01/06/16 at 2100, Last dose on Sun01/07/16 at 0900, Administer 10 hours post-op and morning of POD# Do not crush, chew, or cut in half., Post-op $ Given 01/07/2016 9:26 AM FOREST FIRE SPECIALIST SUPERVISOR 10 mg $ Given 01/06/2016 9:40 PM FOREST FIRE SPECIALIST SUPERVISOR 10 mg oxyCODONE CR 12hr (OxyCONTIN) tablet 20 mg 20 mg, Oral, PRE-OP ONCE, 1 dose, On Piedad 01/06/16 at 0706, Do not crush, chew, or cut in half., Pre-op $ Given 01/06/2016 7:13 AM FOREST FIRE SPECIALIST SUPERVISOR 20 mg scopolamine (TRANSDERM-SCOP) 1.5 MG patch [...] to MRI. $ Applied 01/06/2016 7:15 AM FOREST FIRE SPECIALIST SUPERVISOR 1.5 mg Behind Left Ear senna-docusate (SENOKOT-S) tablet 1 Tab 1 tablet, Oral, 2 TIMES DAILY, First dose on Sun01/06/16 at 1130, Until Discontinued, Post-op $ Given 01/08/2016 9:45 AM FOREST FIRE SPECIALIST SUPERVISOR 1 tablet $ Given 01/07/2016 8:38 PM FOREST FIRE SPECIALIST SUPERVISOR 1 tablet $ Given 01/07/2016 9:26 AM FOREST FIRE SPECIALIST SUPERVISOR 1 tablet tranexamic acid (CYKLOKAPRON) bolus 1,000 mg 1,000 mg, at 200 mL/hr, Intravenous, POST-OP ONCE, 1 dose, On Sun01/06/16 at 1100 $ Given 01/06/2016 11:11 AM FOREST FIRE SPECIALIST SUPERVISOR 1,000 mg 2 00 mL/hr documented in this encounter Active and Recently Administered Medications Times are shown in FOREST FIRE SPECIALIST SUPERVISOR. Scheduled Medication Order 01/06/2016 01/07/2016 01/08/2016 0.9% [...] Provider: Cynthia Eller RN) morphine 1 mg/ml DISPLAY SPECIALIST (CANCELED) Intravenous, DISPLAY SPECIALIST, Starting on Piedad 01/06/16 at 1009, Until 01/08/16 at 1405, DISPLAY SPECIALIST Dose: 1 mg dose with 12 min lockout (5 mg/hr) Contact physician if respiratory rate falls below 10/minute. If respiratory rate < 7/min administer naloxone (Narcan) 0.2 mg IV STAT, begin oxygen at 4-10 LPM, STOP DISPLAY SPECIALIST immediately, and contact physician., Post-op 1020 ($ [...] Post-op documented in this encounter Care Teams Electron Gun Assembler Relationship Specialty Start Date End Date Francisco Long MD PCP - General Internal Medicine 07/03/14 [place] [address] [address] [place] [address] Orthopedic Surgery 04/22/15 [place] [address] [address] [place] [address] [id number] Vice Principal 01/07/16 documented as of this encounter
--- OUTSIDE RECORDS SUMMARY | 2024-11-16 15:23 | XMS_ITS | Encounter Summary ---
Author Organization [facility] Address [facility] [place] [address] Care Team Providers Care Mechanic Marine Engine Name Role Phone Francisco Long MD Primary Care Provider Unavail able Alex Nichols MD Unavailable [phone] Usha Bryan RN Unavailable [phone] Reason for Visit * Radiology Services (Routine) - Closed Specialty Diagnoses / Procedures Referred By Contac t Referred To Contact Vascular Lab Diagnoses Right leg pain Aftercare following right knee joint replacement surgery Procedures [place] [address] [facility] [address] [place] [address] Referral ID Status Reason Start Date Expiration Date Visits Re quested Visits Authorized [id number] Closed 02/01/2016 07/30/2016 1 1 Encounter Details Date Type Department Care Team (Latest Contact Info) Description 02/01/2016 3:00 PM INFORMATICS COORDINATOR - 02/01/2016 11:59 PM [facility] Hospital Encounter [facility] Health Vascular Services [address] [facility], [address] [place] [address] [place] [address] [facility] [address] [place] [address] Discharge Disposition: Home or Self [...] 7 days Resume when ok with your drapery examiner 3 01/07/2016 Other once daily [employer] [...] VENOUS DUPLEX LE Routine 02/01/2016 3:10 PM INFORMATICS COORDINATOR Right leg pain Aftercare following right knee joint replacement surgery documented in this encounter Results * VAS RIGHT VENOUS DUPLEX LE (02/01/2016 3:10 PM INFORMATICS COORDINATOR) Anatomical Region Laterality Modality Ultrasound 02/01/2016 4:01 PM INFORMATICS COORDINATOR Narrative Procedure Note Saqib Brito MD - 02/03/2016 [facility] Health Vascular [place] [address], [address] [place] [address] Lower Extremity Venous Ultrasound Report Pat.Name: SHAUNA GORDONID: [id number] St.Date: 02/01/2016 Exam Time: 4:01:00 PM Study Type:LE Venous Age: 1 1945,70Y Sex: FEMALE Sonogrphr: Peter SuhMEKHI. Stat.:Outpatient ICD - 9: I82.491 Acute embolism and thrombosis of other specified deep vein of right lower extremity CPT - 4: 38298 Procedures:Lower Extremity Venous - Right Race: 2 Visit ID: [id number] SUMMARY: Acute deep vein thrombosis of the [...] surgery documented in this encounter Care Teams Mechanic Marine Engine Relationship Specialty Start Date End Date Francisco Long MD PCP - General Internal Medicine 07/03/14 [place] [address] [address] [address] Orthopedic Surgery 04/22/15 [place] [address] [address] [place] [address] Sparmaker 01/07/16 documented as of this encounter
--- OUTSIDE RECORDS SUMMARY | 2024-11-16 15:23 | XMS_ITS | Encounter Summary ---
Author Organization [facility] Health Address [address] [facility] [place] [address] Care Team Providers Care Infant Toddler Lead Teacher Name Role Phone Francisco Long MD Primary Care Provider Unavail able Alex Nichols MD Unavailable [phone] Usha Bryan RN Unavailable [phone] Reason for Visit * Reason Comments Refill Request Encounter Details Date Type Department Care Team (Late st Contact Info) Description 05/22/2016 Refill [facility] [address] [facility] [address] [place] [address] [place] [address] [address] Refill Request Social History Tobacco [...] has now been signed and sent to [facility]. * Telephone Encounter - Dawna Diehl - 05/25/2016 8:12 AM CDT Patient called again and only have ENOUGH PILLS FOR TODAY and would like the script called to [facility] at [phone]. * Telephone Encounter - Rayna Galan - 05/25/2016 8:10 AM CDT Pharmacy calling to check on prescription refill, patient asking when this will be refilled she is about run out. * Telephone Encounter - Lupe Duran MA - 05/23/2016 8:25 AM CDT Eliquis refill sent to Dr. Nichols for authorization. It will be sent electronically to [facility] once signed. documented in this encounter Plan of Treatment Not on file documented as of this encounter Visit Diagnoses Not on filedocumented in this encounter Care Teams Infant Toddler Lead Teacher Relationship Specialty Start Date End Date Francisco Long MD PCP - General Internal Medicine 07/03/14 [place] [address] [place] [address] Orthopedic Surgery 04/22/15 Usha Bryan, TAO [address] [place] [address] Nurse'S Assistant 01/07/16 documented as of this encounter
--- OUTSIDE RECORDS SUMMARY | 2024-11-16 15:23 | XMS_ITS | Encounter Summary ---
Author Organization [facility] Address [address] [facility] [place] [address] Care Team Providers Care Lehr Loader Name Role Phone Francisco Long MD Primary Care Provider Unavail able Alex Nichols MD Unavailable [phone] Usha Bryan RN Unavailable [phone] Reason for Referral * Radiology Services (Routine) - Closed Specialty Diagnoses / Procedures Referred By Contac t Referred To Contact Vascular Lab Diagnoses Right leg pain Presence of right artificial knee joint Procedures V[place] [address] [place] [address] Referral ID Status Reason Start Date Expiration Date Visits Re quested Visits Authorized [id number] Closed 02/29/2016 08/27/2016 1 1 Reason for Visit * Reason Comments Post-Op right knee Encounter Details Date Type Department Care Team (Latest Contact Info) Description 02/29/2016 11:50 AM CDT Office Visit [facility] [id number] [place] [address] [place] [address] [address] [place] [address] Presence of right artificial knee joint (Primary [...] 7 days Resume when ok with your pot press operator 3 ??? ferrous sulfate 325 (65 FE) [...] Procedure Note Saqib Brito MD - 03/01/2016 [facility] [place] [address], [address] [place] [address] Lower Extremity Venous Ultrasound Report Pat.Name: SHAUNA GORDON Pat.ID: [id number] St.Date: 02/29/2016 Exam Time: 1:24:00 PM Study Type:LE Venous Age: 1 1945,70Y Sex: FEMALE Sonogrphr: Peter Suh RVT Pat. Stat.:Outpatient ICD - 9: I82.491 Acute embolism and thrombosis of other specified deep vein of right lower extremity CPT - 4: 06170 Procedures:Lower Extremity Venous - Right Race: 2 Visit ID: [id number] SUMMARY: Chronic, non-occluding DVT right popliteal and [...] means documented in this encounter Care Teams Lehr Loader Relationship Specialty Start Date End Date Francisco Long MD PCP - General Internal Medicine 07/03/14 [place] [address] [place] [address] Orthopedic Surgery 04/22/15 [place] [address] [address] [place] [address] Funeral Planner 01/07/16 documented as of this encounter
--- OUTSIDE RECORDS SUMMARY | 2024-11-16 15:23 | XMS_ITS | Encounter Summary ---
Author Organization [facility] Health Address [address] [facility] [place] [address] Care Team Providers Care Manager Registration Name Role Phone Francisoc Long MD Primary Care Provider Unavail able Alex Nichols MD Unavailable [phone] Usha Bryan RN Unavailable [phone] Reason for Visit * Reason Comments Follow-up Encounter Details Date Type Department Care Team (Late st Contact Info) Description 04/04/2016 10:00 AM CDT Office Visit [facility] [address] [address] [place] [address] [address] Presence of right artificial [...] 7 days Resume when ok with your easter bunny 3 ??? ferrous sulfate 325 (65 FE) [...] means documented in this encounter Care Teams Manager Registration Relationship Specialty Start Date End Date Francisco Long MD PCP - General Internal Medicine 07/03/14 [place] [address] [address] [place] [id number] Orthopedic Surgery 04/22/15 [place] [address] [place] [address] Amusement Ride Operator 01/07/16 documented as of this encounter
--- OUTSIDE RECORDS SUMMARY | 2024-11-16 15:23 | XMS_ITS | Encounter Summary ---
Author Organization [facility] Health Address [address] [facility] [place] [address] Care Team Providers Care Cardiopulmonary Technician And Eeg Tech Name Role Phone Francisco Long MD Primary Care Provider Unavail able Alex Nichols MD Unavailable [phone] Usha Bryan RN Unavailable [phone] Reason for Visit * Reason Onset Date Comments Question 02/21/2016 Encounter Details Date Type Department Care Team (Late st Contact Info) Description 02/21/2016 Telephone [facility] [address] [facility] [address] [place] [address] [place] [address] [address] Question Social History Tobacco Use [...] Telephone Encounter - Chitra Matos, RN - 02/21/2016 11:44 AM CDT Returned call and spoke to patient. Advised her she would need a refill on her Eliquis as the plan is her to continue taking the medication for at least another month or two. Did email pt a link, forher to print to take to pharmacist, for her to possibly have a lower cost copay. * Telephone Encounter - Keri Thomas - 02/21/2016 10:11 AM CDT Pt has an appt schd for 02/29/16- pt states she only has a few of the eliquis pills left- pt wants toknow if she needs to get a full refill of a half refill- pt states the script cost her $338 out of pocket Please call documented in this encounter Plan of Treatment Not on file documented as of this encounter Visit Diagnoses Not on filedocumented in this encounter Care Teams Cardiopulmonary Technician And Eeg Tech Relationship Specialty Start Date End Date Francisco Long MD PCP - General Internal Medicine 07/03/14 [place] [address] [address] [place] [address] Orthopedic Surgery 04/22/15 [place] [address] [place], [place] [id number] Blind Teacher 01/07/16 documented as of this encounter
--- OUTSIDE RECORDS SUMMARY | 2024-11-16 15:23 | XMS_ITS | Referral Summary ---
Author Organization [facility] Address [address] [facility] [place] [address] Care Team Providers Care Media Relations Director Name Role Phone Francisco Long MD Primary Care Provider Unavail able Alex Nichols MD Unavailable Usha Bryan RN Unavailable [phone] Micki Cadena MD Unavailable [phone] Source Comments [facility],non-owned Affiliates and Associated Physician Practices is amultiple site organization consisting of ambulatory clinics and hospital sitesin [place], [place], [place] and [place]. This disclosure is being madepursuant to the Care Everywhere program and may not contain all information available regarding this patient. Last updated 18.[facility] Allergies No known active allergies Medications [...] 7 days Resume when ok with your gas well drilling manager 3 01/07/2016 Active ELIQUIS 5 MG tablet [...] Comments Blood Pressure 117/64 01/08/2016 7:50 AM EDUCATIONAL CONSULTANT Pulse 95 01/08/2016 7:50 AM EDUCATIONAL CONSULTANT Temperature 36.7 ??C (98.1 ??F) 01/08/2016 7:50 AM CS T Respiratory Rate 18 01/08/2016 7:50 AM EDUCATIONAL CONSULTANT Oxygen Saturation 93% 01/08/2016 7:50 AM EDUCATIONAL CONSULTANT Inhaled Oxygen Concentration - - Weight 88.9 kg (196 lb) 01/06/2016 6:58 AM EDUCATIONAL CONSULTANT Height 170.2 cm (5' 7 ) 01/06/2016 6:58 AM EDUCATIONAL CONSULTANT Body Mass Index 30.7 01/06/2016 6:58 AM EDUCATIONAL CONSULTANT Functional Status Functional Status Response Date of [...] on file Medical Devices Implanted Type Area Wind Turbine Performance Engineer Device Identifier Shelf Expiration Date Model / Serial / Lot Amaury Bone Talent Hv Implanted:Qty: 1 on 06/09/2015 by Alex Nichols MD at [facility] Left: Knee [employer] 12/27/2016 [id number] / / [id number] Kn Ins Vangurd Fem Cocr Intlok L 67.5mm Implanted:Qty: 1 on 06/09/2015 by Alex Nichols MD at [facility] Left: [employer]nee [employer] 04/28/2025 [id number] / / [id number] Ty Tibial I Beam Fix Bar 75mm Implanted:Qty: 1 on 06/09/2015 by Alex Nichols MD at [facility] Left: [employer]nee [employer] 03/26/2025 [id number] / / [id number] Butn Pat Arcom Wire Polyeth Xsm 28 X 8 Implanted:Qty: 1 on 06/09/2015 by Alex Nichols MD at [facility] Left: [employer]nee [employer] 06/26/[id number] / / [id number] Vangrd Ant Stblzd Brg 10mm X 75mm Implanted:Qty: 1 on 06/09/2015 by Alex Nichols MD at [facility] Left: [employer]nee [employer] 10/26/2018 [id number] / / [id number] Brdg Tib Thalia Stbl 12mm X 71mm Implanted:Qty: 1 on 01/06/2016 by Alex Nichols MD at [facility] Right: [employer]nee [employer] 11/24/2020 [id number] / / [id number] Amaury Bone Talent Hv Implanted:Qty: 1 on 01/06/2016 by Alex Nichols MD at [facility] Right: Knee [facility] 08/25/2017 [id number] / / [id number] Ty Tibial I Beam Fix Bar 71mm Implanted:Qty: 1 on 01/06/2016 by Alex Nichols MD at [facility] Right: [employer]nee [employer] 11/30/2025 [id number] / / [id number] Ins Kn Vangurd Fem Cocr R-Intlok 67.5mm Implanted:Qty: 1 on 01/06/2016 by Alex Nichols MD at [facility] Right: [employer] 11/01/2025 [id number] / / [id number] Butn Pat Arcom Wire Polyeth Xsm 28 X 8 Implanted:Qty: 1 on 01/06/2016 by Alex Nichols MD at [facility] Right: [employer] 11/11/2020-593527 / / [id number] Administered Medications Advance Directives * Full Code (Latest Code Status on File) Date Activated Date Inactivated Comments 01/06/2016 11:24 AM 01/08/2016 2:05 PM * Full Code Date Activated Date Inactivated Comments 06/09/2015 3:08 PM 06/12/2015 1:28 PM Care Teams Media Relations Director Relationship Specialty Start Date End Date Francisco Long MD PCP - General Internal Medicine 07/03/14 [place] [address] [place] [address] Orthopedic Surgery 04/22/15 [place] [address] [place] [address] Tower Technician 01/07/16 [place] [address] [place] [address] Surgical Oncologist Surgical Oncology 07/05/18
--- OUTSIDE RECORDS SUMMARY | 2024-11-16 15:23 | XMS_ITS | Clinical Summary ---
Author Organization [facility] Address [address] [facility] [place] [address] Care Team Providers Care Database Report Writer Name Role Phone Francisco Long MD Primary Care Provider Unavail able Alex Nichols MD Unavailable [phone] Usha Bryan RN Unavailable [phone] Micki Cadena MD Unavailable [phone] Source Comments [facility],non-owned Affiliates and Associated Physician Practices is amultiple site organization consisting of ambulatory clinics and hospital sitesin [place], [place], [place] and [place]. This disclosure is being madepursuant to the Care Everywhere program and may not contain all information available regarding this patient. Last updated 18.[facility] Allergies No known active allergies Medications * [...] 7 days Resume when ok with your nurse leader 3 01/07/2016 Active ELIQUIS 5 MG tablet [...] Comments Blood Pressure 117/64 01/08/2016 7:50 AM ORDAINED MINISTER Pulse 95 01/08/2016 7:50 AM ORDAINED MINISTER Temperature 36.7 ??C (98.1 ??F) 01/08/2016 7:50 AM CS T Respiratory Rate 18 01/08/2016 7:50 AM ORDAINED MINISTER Oxygen Saturation 93% 01/08/2016 7:50 AM ORDAINED MINISTER Inhaled Oxygen Concentration - - Weight 88.9 kg (196 lb) 01/06/2016 6:58 AM ORDAINED MINISTER Height 170.2 cm (5' 7 ) 01/06/2016 6:58 AM ORDAINED MINISTER Body Mass Index 30.7 01/06/2016 6:58 AM ORDAINED MINISTER Plan of Treatment Health Maintenance Due Date [...] this topic Medical Devices Implanted Type Area Solar Energy Engineer Device Identifier Shelf Expiration Date Model / Serial / Lot Amaury Bone Yutan Hv Implanted:Qty: 1 on 06/09/2015 by Alex Nichols MD at [facility] Left: Knee [employer] 12/27/2016 [id number] / / [id number] Kn Ins Vangurd Fem Cocr Intlok L 67.5mm Implanted:Qty: 1 on 06/09/2015 by Alex Nichols MD at [facility] Left: [employer]nee [employer] 04/28/2025 [id number] / / [id number] Ty Tibial I Beam Fix Bar 75mm Implanted:Qty: 1 on 06/09/2015 by Alex Nichols MD at [facility] Left: [employer]nee [employer] 03/26/2025 [id number] / / [id number] Butn Pat Arcom Wire Polyeth Xsm 28 X 8 Implanted:Qty: 1 on 06/09/2015 by Alex Nichols MD at [facility] Left: [employer]nee [employer] 06/26/2019 [id number] / / [id number] Vangrd Ant Stblzd Brg 10mm X 75mm Implanted:Qty: 1 on 06/09/2015 by Alex Nichols MD at [facility] Left: [employer]nee [employer] 10/26/2018 [id number] / / [id number] Brdg Tib Thalia Stbl 12mm X 71mm Implanted:Qty: 1 on 01/06/2016 by Alex Nichols MD at [facility] Right: [employer]nee [employer] 11/24/2020 [id number] / / [id number] Amaury Bone Yutan Hv Implanted:Qty: 1 on 01/06/2016 by Alex Nichols MD at [facility] Right: Knee DJ Orthopedics 08/25/2017 128229 / / [id number] Ty Tibial I Beam Fix Bar 71mm Implanted:Qty: 1 on 01/06/2016 by Alex Nichols MD at [facility] Right: [employer]nee [employer] 11/30/2025 [id number] / / [id number] Ins Kn Vangurd Fem Cocr R-Intlok 67.5mm Implanted:Qty: 1 on 01/06/2016 by Alex Nichols MD at [facility] Right: [employer] 11/01/2025 [id number] / / [id number] Ced Rowland Wire Polyeth Xsm 28 X 8 Implanted:Qty: 1 on 01/06/2016 by Alex Nichols MD at [facility] Right: [employer]nee [employer] 11/11/2020 [id number] / / [id number] Advance Directives * Full Code (Latest Code Status on File) Date Activated Date Inactivated Comments 01/06/2016 11:24 AM 01/08/2016 2:05 PM * Full Code Date Activated Date Inactivated Comments 06/09/2015 3:08 PM 06/12/2015 1:28 PM Care Teams Database Report Writer Relationship Specialty Start Date End Date Francisco Long MD PCP - General Internal Medicine 07/03/14 [place] [address] [address] [place] [address] Orthopedic Surgery 04/22/15 [place] [address] [address] [place] [address] Ceramic Saw Tender 01/07/16 [place] [address] [place] [address] Surgical Oncologist Surgical Oncology 07/05/18
--- OUTSIDE RECORDS SUMMARY | 2024-11-16 15:23 | XMS_ITS | Encounter Summary ---
Author Organization [facility] Address [address] [facility] [place] [address] Care Team Providers Care Line Construction Superintendent Name Role Phone Francisco Long MD Primary Care Provider Unavail able Alex Nichols MD Unavailable [phone] Usha Bryan RN Unavailable [phone] Reason for Visit * Radiology Services (Routine) - Closed Specialty Diagnoses / Procedures Referred By Contac t Referred To Contact Vascular Lab Diagnoses Right leg pain Presence of right artificial knee joint Procedures [place] [address] [facility] [address] [place] [address] Referral ID Status Reason Start Date Expiration Date Visits Re quested Visits Authorized [id number] Closed 02/29/2016 08/27/2016 1 1 Encounter Details Date Type Department Care Team (Latest Contact Info) Description 02/29/2016 1:32 PM CDT - 02/29/2016 11:59 PM T Hospital Encounter [facility] V[facility] Services [address] [facility], [address] [place] [address] [place] [address] [facility] [address] [place] [address] Discharge Disposition: Home or Self Care Social [...] 7 days Resume when ok with your junior architect 3 01/07/2016 Other once daily [employer] [...] Procedure Note Saqib Brito MD - 03/01/2016 [facility] [place] [address], [address] [place] [address] Lower Extremity Venous Ultrasound Report Pat.Name: SHAUNA GORDON.ID: [id number] St.Date: 02/29/2016 Exam Time: 1:24:00 PM Study Type:LE Venous Age: 1 1945,70Y Sex: FEMALE Sonogrphr: Peter Suh Titus Pat. Stat.:Outpatient ICD - 9: I82.491 Acute embolism and thrombosis of other specified deep vein of right lower extremity CPT - 4: 13646 Procedures:Lower Extremity Venous - Right Race: 2 Visit ID: [id number] SUMMARY: Chronic, non-occluding DVT right popliteal and [...] means documented in this encounter Care Teams Line Construction Superintendent Relationship Specialty Start Date End Date Francisco Long MD PCP - General Internal Medicine 07/03/14 [place] [address] [place] [address] Orthopedic Surgery 04/22/15 Usha Bryan, TAO [address] [address] [place] [address] Lab Rep 01/07/16 documented as of this encounter
--- OUTSIDE RECORDS SUMMARY | 2024-11-16 15:23 | XMS_ITS | Encounter Summary ---
Author Organization [facility] Address [address] [facility] [place] [address] Care Team Providers Care Civilian Technician Name Role Phone Francisco Long MD Primary Care Provider Unavail able Alex Nichols MD Unavailable Reason for Visit * Auth/Cert (Routine) - Closed Specialty Diagnoses / Procedures Referred By Contac t Referred To Contact Diagnoses Unilateral primary osteoarthritis, right knee Procedures [place] TOTAL KNEE ARTHROPLASTY Referral ID Status Reason Start Date Expiration Date Visits Re quested Visits Authorized [id number] Closed 12/24/2015 06/21/2016 1 1 Encounter Details Date Type Department Care Team (Late st Contact Info) Description 01/06/2016 8:00 AM [facility] - 01/06/2016 10:07 AM [facility] Surgery [facility] - Perioperative Surgery [address] [place] [address] [place] [address] [facility] [address] [place] [address] RIGHT TOTAL KNEE REPLACEMENT Surgery Details Date/Time Status Location OR Service Patient Class Case Class Case Type Trauma Case? 01/06/2016 8:00 AM Posted [facility] MAIN OR OR 12 Orthopedics Shift Supervisor Rn Admit Surgical Elective > 5 days Panel [...] Comments Blood Pressure 117/64 01/08/2016 7:50 AM [facility] Pulse 95 01/08/2016 7:50 AM [facility] Temperature 36.7 ??C (98.1 ??F) 01/08/2016 7:50 AM CS T Respiratory Rate 18 01/08/2016 7:50 AM [facility] Oxygen Saturation 93% 01/08/2016 7:50 AM [facility] Inhaled Oxygen Concentration - - Weight 88.9 kg (196 lb) 01/06/2016 6:58 AM [facility] Height 170.2 cm (5' 7 ) 01/06/2016 6:58 AM [facility] Body Mass Index 30.7 01/06/2016 6:58 AM [facility] documented in this encounter Functional Status Functional [...] will be taken out on 01/20/16 by [facility]. When to call your provider Call [...] 7 days Resume when ok with your clipper machine operator Natividad Diamond CONTINUE taking these medications Instructions Authorizing Provider ferrous sulfate 325 (65 FE) MG tablet Take 325 mg by mouth daily with breakfast losartan-hydrochlorothiazide 100-12.5 MG tablet Commonly known as: HYZAAR Take 1 Tab by mouth once daily. Other - once daily [employer] [place] Supplement - Instructed to stop 10 days before surgery CC: None [facility] documented in this encounter Medications at Time [...] 7 days Resume when ok with your clipper machine operator 3 01/07/2016 Other once daily [employer] [...] discharge: Family () Proposed Home Health Agency: *[facility] Home Care Intake Lucy will be taken out on 01/20 by RN Pharmacy benefit: Yes. Equipment At Home: Cane-Straight;Chair-Shower;Walker-2 Wheeled;Crutches-Standard;Steward/Stewardess Deck List DME pt. requires but does not have.: None PCP: Francisco Long MD Physician Followup Appointment(s) Made: No Appointment(s) made with the following physician providers: Surgeon (02/01/16 @ 14:30 Dr. Nichols ) Reason why no appointment was made with physician: Appointment already made ?? Will continue to follow.?? For any questions or needs please contact: Top Closer Name/Phone number: Usha Bryan RN Ascom ~ [phone] Pager ~ [phone] [facility] * Tiff Parker RN - 01/08/2016 1:08 [...] right hand ,removed and patient went home. [facility]ION M[facility]WRIGHT * Natividad Diamond MD - 01/08/2016 12:32 [...] 100 mg, Oral, QDAY morphine 1 mg/ml AUTOMOBILE RENTAL AGENT, Intravenous, AUTOMOBILE RENTAL AGENT ?? senna-docusate (SENOKOT-S) tablet 1 Tab, Oral, [...] wiggles toes, normal sensation to light touch NATURAL RESOURCES MANAGER. Alert , moves all extremities against gravity [...] She was asked to f/u with her clipper machine operator to determine if she needed to conitnue her meds 3. Hypertension:?? Resume Cozaar Monitor blood pressure and adjust medications as needed ISION MILLWRIGHT * Tiff Ashley RN - 01/08/2016 11:05 AM CST Ortho Progress Note 01/08/2016 Awake and alert Afebrile Dressing knee c/d/i Pain controlled Up in chair Recent Labs Component Name 01/08/16 0137 01/07/16 0450 12/16/15 0933 HGB 10.8* 10.6* 12.8 HCT 33.6* 33.2* 39.9 Progressing with PT Discharge home Follow up in office 3 weeks [facility] * Taniya Chatman, PT - 01/08/2016 9:32 AM CST PT [...] Aching;Throbbing Bed Mobility: Supine to Sit: Complete Young Sit to Supine: Modified Young Transfers: Sit to Stand: Supervision, Set-Up, Cues (cues for technique, mod I p teaching) Stand to Sit: Modified Young Mobility: Distance Ambulated: 220 FEET Ambulation: Assistive Device: Gait Belt;Walker-2 Wheeled Ambulation: Level of Assistance: Modified Young Ambulation: Gait Deviations: Antalgic;[place] - Decreased;Heel Strike [...] the discharge summary. Taniya Luque DPT [phone] [facility]WRIGHT * Taniya Chatman, PT - 01/08/2016 9:32 AM CST Problem: Mobility Goal: STG - Patient will ambulate 220 feet with wh walker and SBA of 1 Outcome: Goal Met Date Met: 01/08/16 Problem: Transfers Goal: STG - Patient to transfer to and from sit to supine independently Outcome: Goal Met Date Met: 01/08/16 Modified independent with knee ortho strap ISION MILLWRIGHT * Liana Hauser RN - 01/08/2016 5:59 AM CST Clinical Admissions Manager Summary: The patient has been in NAD [...] extremity when OOB and ambulating. Medicated with Burgess 10 for discomfort and is satisfied with the resulting reduction in pain. Voiding without c/o difficulty. ISION MILLWRIGHT * Liana Hauser RN - 01/08/2016 5:54 [...] assistance.. Fall precautions will remain in effect ISION MILLWRIGHT * Marguerite Daniels RN - 01/07/2016 4:59 PM CST Shift Summary Patient up with SBA and wheeled walker. Burgess 10 given for pain control. No c/o nausea or vomiting.Voiding adequate amounts. Silver mepilex dressing clean, dry and intact. VSS. Anticipate possible discharge in the AM. Will continue to monitor. Marguerite Daniels RN [facility] M[facility]WRIGHT * Natividad Diamond MD - 01/07/2016 4:42 [...] mg, Oral, QDAY ?? morphine 1 mg/ml AUTOMOBILE RENTAL AGENT, Intravenous, AUTOMOBILE RENTAL AGENT ?? senna-docusate (SENOKOT-S) tablet 1 Tab, Oral, [...] wiggles toes, normal sensation to light touch NATURAL RESOURCES MANAGER. Alert , moves all extremities against gravity [...] blood pressure and adjust medications as needed ISION MILLWRIGHT * Tiff Ashley RN - 01/07/2016 3:09 PM CST Ortho Progress Note 01/07/2016 Awake and alert. Afebrile. Pain controlled. Dressing knee c/d/i. Continue physical therapy. Up in chair Recent Labs Component Name 01/07/16 0450 12/16/15 0933 06/11/15 0509 HGB 10.6* 12.8 10.9* HCT 33.2* 39.9 33.3* ISION MILLWRIGHT * Alison Buchanan, PT - 01/07/2016 3:04 [...] call light in reach. Bed alarm activated. ISION MILLWRIGHT * Alison Buchanan, PT - 01/07/2016 11:51 [...] following treatment with call light in reach. ISION MILLWRIGHT * Marguerite Daniels RN - 01/07/2016 9:46 AM CST Problem: Pain/Discomfort Goal: Patient exhibits reduced pain/discomfort as evidenced by pain scores Outcome: Ongoing Patient currently rates pain at 4/10. Functional goal is 5/10. Goal: Patient uses pharmacological and non-pharmacological pain management strategies. Outcome: Ongoing Patient taking PRN Burgess 5 for pain control. Ice packs applied [...] and wheeled walker. Call light within reach. ISION MILLWRIGHT * Usha Bryan RN - 01/07/2016 9:10 [...] Equipment at Home: Equipment At Home: Cane-Straight;Chair-Shower;Walker-2 Wheeled;Crutches-Standard;Steward/Stewardess Deck PCP: Francisco Long MD Physician Followup Appointment(s) [...] contact: Usha Bryan RN Case Manager Ascom: [phone] Pager: [phone] [facility] * Pricilla Maher RN - 01/06/2016 4:57 PM CST Shift summary: To floor at 1130. VS stable. Knee dressing is dry and intact. Incontinent of urine x1. Up at bedside with PT.Fair appetite, denies nausea. Pain has been minimal and using Morphine PCAprn. No respiratory distress, remains on capnography and oxygen. Will continue to monitor. Pricilla Maher RN [facility]WR[facility] * Felicia Wolfe PT - 01/06/2016 4:45 [...] as the discharge summary. Deborah Wolfe, PT [phone] [facility] * Dawna Joseph, [facility] - 01/06/2016 7:34 AM CST [facility] Pharmacy Clinical Services Admission Medication Review [...] of Jolene Cedillo's care. Dawna Joseph RP ISION MILLWRIGHT documented in this encounter H&P Notes * Cornelio Alba PA-C - 01/05/2016 8:43 AM CST [facility] PRE-OPERATIVE HISTORY AND PHYSICAL PATIENT NAME: Jolene Cedillo : 1945 CSN: [id number] HISTORY OF PRESENT ILLNESS: This is a 70 y.o. year-old female seen at the office regarding her right knee. The right knee has been symptomatic for over several years. Radiograph shows end-stage tricompartmental DJD of the right knee with [id number] degenerative changes along medial joint line/varus. Patient [...] tricompartmental DJD of the right knee with [id number] degenerative changes along medial joint line/varus. IMPRESSION: [...] expectations associated with this. Cornelio Alba PA-C [facility]WRIGHT documented in this encounter Consult Notes * [...] sounds MSK: no clubbing, cyanosis or edema NATURAL RESOURCES MANAGER. Alert , No facial assymetry, clear speech. [...] CC: Francisco Long MD, Alex Nichols MD [facility]ION M[facility]WRIGHT documented in this encounter OR Notes * Operative - Alex Nicohls MD - 01/06/2016 9:28 AM CST Operative Report Right Total Knee PATIENT: Jolene Cedillo : 1945 ADMIT DATE: 01/06/2016 DATE OF SURGERY: 01/06/2016 PHYSICIAN: Alex Nichols MD SURGEON: Alex Nichols MD SENIOR CONSUMER INSIGHTS CONSULTANT: Alix IRAHETA The skilled assistance of the PA-C was necessary for the effective and successful completion of this case. The physician assistant professor of radiology was essential for the proper positioning, manipulation [...] Disposition: PACU Complications: None Alex Nichols MD [facility] M[facility]WRIGHT documented in this encounter Plan of Treatment Not on file documented as of this encounter Procedures Procedure Name Priority Date/Time Associated Diagnosis Comments HGB HCT PANEL AM Draw 01/08/2016 1:37 AM [facility] HGB HCT PANEL AM Draw 01/07/2016 4:50 AM [facility] ARTHROPLASTY TOTAL KNEE 01/06/2016 7:39 AM [facility] Special Needs BIOMET (CAMILO) NOTIFIED-NB documented in this encounter Results * (ABNORMAL) HGB HCT PANEL (01/08/2016 1:37 AM [facility]) Hemoglobin 10.8(L) 12.0 - 15.6 gm/dL 01/08/2016 1:58 AM [facility] Hematocrit 33.6(L) 35.9 - 45.5 % 01/08/2016 1:58 AM [facility] Blood BLOOD SPECIMEN / Unknown 01/08/2016 1:37 AM [facility] 01/08/2016 1:55 AM [facility] Alex Nichols MD LAB - HEMATOLOGY ORD ERABLES [facility] [address] [place] [address] * (ABNORMAL) HGB HCT PANEL (01/07/2016 4:50 AM [facility]WR[facility]) Hemoglobin 10.6(L) 12.0 - 15.6 gm/dL 01/07/2016 5:21 AM [facility] Hematocrit 33.2(L) 35.9 - 45.5 % 01/07/2016 5:21 AM [facility] Blood BLOOD SPECIMEN / Unknown 01/07/2016 4:50 AM [facility] 01/07/2016 5:01 AM [facility] Alex Nichols MD LAB - HEMATOLOGY ORD ERABLES [facility] [address] [place] [address] documented in this encounter Visit Diagnoses Not on filedocumented in this encounter Administered Medications Inactive Administered Medications - up to 3 most recent administrations Medication Order MAR Action Action Date Dose Rate Site bupivacaine PF (MARCAINE PF) 0.25 % injection PRN, Starting on Piedad 01/06/16 at 0831, Until Piedad 01/06/16 at 0935, Intra-op $ Given 01/06/2016 8:31 AM [facility]WR[facility] 30 mL Right Knee morphine (PF) injection PRN, Starting on Piedad 01/06/16 at 0831, Until Piedad 01/06/16 at 0935, Intra-op $ Given 01/06/2016 8:31 AM [facility]WR[facility] 10 mg Right Knee polymyxin B 500,000 Units, bacitracin 50,000 Units in NaCl 0.9 % 1,000 mL irrigation PRN, Starting on Piedad 01/06/16 at 0831, Until Piedad 01/06/16 at 0935, Intra-op $ Given 01/06/2016 8:31 AM [facility] 1,000 mL Right Knee vancomycin (VANCOCIN) injection PRN, Starting on Piedad 01/06/16 at 0831, Until Piedad 01/06/16 at 0935, Intra-op $ Given 01/06/2016 8:31 AM [facility] 500 mg Right Knee documented in this encounter Active and Recently Administered Medications Times are shown in [facility]. Scheduled Medication Order 01/06/2016 01/07/2016 01/08/2016 0.9% [...] Provider: Cynthia Eller RN) morphine 1 mg/ml AUTOMOBILE RENTAL AGENT (CANCELED) Intravenous, AUTOMOBILE RENTAL AGENT, Starting on Piedad 01/06/16 at 1009, Until 01/08/16 at 1405, AUTOMOBILE RENTAL AGENT Dose: 1 mg dose with 12 min lockout (5 mg/hr) Contact physician if respiratory rate falls below 10/minute. If respiratory rate < 7/min administer naloxone (Narcan) 0.2 mg IV STAT, begin oxygen at 4-10 LPM, STOP AUTOMOBILE RENTAL AGENT immediately, and contact physician., Post-op 1020 ($ [...] Post-op documented in this encounter Care Teams Civilian Technician Relationship Specialty Start Date End Date Francisco Long MD PCP - General Internal Medicine 07/03/14 [place] [address] [address] Orthopedic Surgery 04/22/15 documented as of this encounter
--- OUTSIDE RECORDS SUMMARY | 2024-11-16 15:23 | XMS_ITS | Encounter Summary ---
Author Organization [facility] Health Address [address] [place] [address] Care Team Providers Care Swaging Machine Operator Name Role Phone Francisco Long MD Primary Care Provider Unavail able Alex Nichols MD Unavailable [phone] Usha Bryan RN Unavailable [phone] Reason for Visit * Reason Onset Date Comments Question 02/02/2016 Encounter Details Date Type Department Care Team (Late st Contact Info) Description 02/02/2016 Telephone [facility] Orthopedics [address] [facility] [address] [place] [address] [place] [address] [address] Question Social History Tobacco Use [...] 7 days then go to 5mg BID. RVISOR PUMPING STATION * Telephone Encounter - Dawna Diehl - 02/02/2016 8:13 AM CST Patient called today and received a script for Eliquis and has questions regarding the directions. When she picked up the prescription the directions were different than she was told. Please call at [phone] available anytime or can leave a message. RVISOR PUMPING STATION documented in this encounter Plan of Treatment Not on file documented as of this encounter Visit Diagnoses Not on filedocumented in this encounter Care Teams Swaging Machine Operator Relationship Specialty Start Date End Date Francisco Long MD PCP - General Internal Medicine 07/03/14 [place] [address] [place] [address] Orthopedic Surgery 04/22/15 [place] [address] [place] [address] District Or District Office Director 01/07/16 documented as of this encounter
--- OUTSIDE RECORDS SUMMARY | 2024-11-16 15:24 | XMS_ITS | Encounter Summary ---
Author Organization [facility] Health Address [address] [facility] [place] [address] Care Team Providers Care Value Stream Leader Name Role Phone Francisco Long MD Primary Care Provider Unavail able Alex Nichols MD Unavailable [phone] Reason for Visit * Reason Comments Post-Op 3mo check on L TKA, performed on 06/09/15 Encounter Details Date Type Department Care Team (Late st Contact Info) Description 09/03/2015 9:00 AM CDT Office Visit [facility] Orthopedics [address] [facility] [address] [place] [address] [place] [address] [address] Osteoarthrosis, unspecified whether generalized or [...] 08:12:50 Electronically Signed 09/13/2015 08:14:45 PJD/MedQ #: [id number] documented in this encounter Plan of Treatment Not on file documented as of this encounter Visit Diagnoses Diagnosis Osteoarthrosis, unspecified whether generalized or localized, involving lower leg- Primary documented in this encounter Care Teams Value Stream Leader Relationship Specialty Start Date End Date Francisco Long MD PCP - General Internal Medicine 07/03/14 [place] [address] [place] [address] Orthopedic Surgery 04/22/15 documented as of this encounter
--- OUTSIDE RECORDS SUMMARY | 2024-11-16 15:24 | XMS_ITS | Encounter Summary ---
Author Organization [facility] Address [address] [facility] [place] [address] Care Team Providers Care Corporate Safety Manager Name Role Phone Francisco Long MD Primary Care Provider Unavail able Alex Nichols MD Unavailable [phone] Reason for Visit * Reason Comments Post-Op 6wk check on L TKA, performed on 06/09/15 Encounter Details Date Type Department Care Team (Late st Contact Info) Description 07/23/2015 9:50 AM CDT Office Visit [facility] Orthopedics [address] [facility] [address] [place] [address] [place] [address] [address] Osteoarthrosis, unspecified whether generalized or [...] M.D. Electronically Signed 07/26/2015 08:36:44 WCS/MedQ #: [id number] documented in this encounter Procedure Notes * [...] means documented in this encounter Care Teams Corporate Safety Manager Relationship Specialty Start Date End Date Francisco Long MD PCP - General Internal Medicine 07/03/14 [place] [address] [place] [address] Orthopedic Surgery 04/22/15 documented as of this encounter
--- OUTSIDE RECORDS SUMMARY | 2024-11-16 15:24 | XMS_ITS | Encounter Summary ---
Author Organization [facility] Address [address] [facility] [place] [address] Care Team Providers Care Supervisor Blast Furnace Auxiliaries Name Role Phone Francisco Long MD Primary Care Provider Unavail able Alex Nichols MD Unavailable Usha Bryan RN Unavailable [phone] Micki Cadena MD Unavailable [phone] Encounter Details Date Type Department Care Team (Late st Contact Info) Description 06/30/2015 Therapy Visit [facility] Orthopedics [address] [address] [place] [address] [address] Social History Tobacco Use Types [...] on filedocumented in this encounter Care Teams Supervisor Blast Furnace Auxiliaries Relationship Specialty Start Date End Date Francisco Long MD PCP - General Internal Medicine 07/03/14 [place] [address] [place] [address] Orthopedic Surgery 04/22/15 [place] [address] [place] [address] Hat And Cap Parts Cutter Hand 01/07/16 [place] [address] [place] [address] Surgical Oncologist Surgical Oncology 07/05/18 documented as of this encounter
--- OUTSIDE RECORDS SUMMARY | 2024-11-16 15:24 | XMS_ITS | Encounter Summary ---
Author Organization [facility] Health Address [address] [facility] [place] [address] Care Team Providers Care Sephora Product Consultant Name Role Phone Francisco Long MD Primary Care Provider Unavail able Alex Nichols MD Unavailable [phone] Reason for Visit * Reason Onset Date Comments Question 11/09/2015 Encounter Details Date Type Department Care Team (Late st Contact Info) Description 11/09/2015 Telephone [facility] Orthopedics [address] [facility] [address] [place] [address] [place] [address] [facility] [address] [place] [address] Question Social History Tobacco Use [...] has already had bloodwork done through her bilingual middle school teacher and will have that faxed. She would like to have the nasal swab done by Dr. Long's office to avoid another trip here for an SEC appointment. Since she has so recently had the other knee replacement, that is a reasonable request. An order for the MRSA/MSSA nasal swab will be faxed to Dr. Long's office. ISH INSPECTOR * Telephone Encounter - Lupe Duran MA [...] anything until I hear back from her. ISH INSPECTOR * Telephone Encounter - Marianne Ag - 11/09/2015 2:03 PM CST Patient is scheduled for a surgery on 12-06-15 and requests a medical clearance form. Patient is scheduled to see her PCP on Sunday. Please advise patient. ISH INSPECTOR documented in this encounter Plan of Treatment Not on file documented as of this encounter Visit Diagnoses Diagnosis Preop testing- Primary Preoperative examination, unspecified documented in this encounter Care Teams Sephora Product Consultant Relationship Specialty Start Date End Date Francisco Long MD PCP - General Internal Medicine 07/03/14 [place] [address] [place] [address] Orthopedic Surgery 04/22/15 documented as of this encounter
--- OUTSIDE RECORDS SUMMARY | 2024-11-16 15:24 | XMS_ITS | Encounter Summary ---
Author Organization [facility] Address [address] [facility] [place] [address] Care Team Providers Care Director Blood Bank Name Role Phone Francisco Long MD Primary Care Provider Unavail able Alex Nichols MD Unavailable [phone] Reason for Visit * Reason Onset Date Comments Question 06/18/2015 Encounter Details Date Type Department Care Team (Late st Contact Info) Description 06/18/2015 Telephone [facility] Orthopedics [address] [facility] [address] [place] [address] [place] [address] [facility] [address] [place] [address] Question Social History Tobacco Use [...] 2:54 PM CDT [facility] CALLED REGARDING SHAUNA. PATIENT IS HAVING A LOT OF PAIN AND IS THE THERAPISTS IS REQUESTING VISTARIL AND THE PHARMACY IS [facility] PHONE NUMBER IS [phone]. PLEASE CALL IF ANY QUESTIONS AT [phone]. documented in this encounter Plan of Treatment Not on file documented as of this encounter Visit Diagnoses Not on filedocumented in this encounter Care Teams Director Blood Bank Relationship Specialty Start Date End Date Francisco Long MD PCP - General Internal Medicine 07/03/14 [place] [address] [address] [place] [address] Orthopedic Surgery 04/22/15 documented as of this encounter
--- OUTSIDE RECORDS SUMMARY | 2024-11-16 15:24 | XMS_ITS | Encounter Summary ---
Author Organization [facility] Health Address [address] [place] [address] Care Team Providers Care Pump Servicer Supervisor Name Role Phone Francisco Long MD Primary Care Provider Unavail able Alex Nichols MD Unavailable [phone] Reason for Visit * Reason Onset Date Comments Surgery Scheduling 11/08/2015 Encounter Details Date Type Department Care Team (Late st Contact Info) Description 11/08/2015 Telephone [facility] Orthopedics [address] [facility] [address] [place] [address] [place] [address] [facility] [address] [place] [address] Surgery Scheduling Social History Tobacco [...] scheduled TKA for 01/06/16, will mail info [address] [employer] STENOGRAPHER * Telephone Encounter - Dawna Diehl - 11/08/2015 9:58 AM CST Patient called today and would like to schedule surgery on her right knee. She is looking at December 27 , or the if possible. Please call at [phone] available anytime or can leave message. LANCE COURT STENOGRAPHER documented in this encounter Plan of Treatment Not on file documented as of this encounter Visit Diagnoses Not on filedocumented in this encounter Care Teams Pump Servicer Supervisor Relationship Specialty Start Date End Date Francisco Long MD PCP - General Internal Medicine 07/03/14 [place] [address] [address] [address] Orthopedic Surgery 04/22/15 documented as of this encounter
--- OUTSIDE RECORDS SUMMARY | 2024-11-16 15:24 | XMS_ITS | Encounter Summary ---
Author Organization [facility] Health Address [facility] [place] [address] Care Team Providers Care Marine Pipefitter Name Role Phone Francisco Long MD Primary Care Provider Unavail able Alex Nichols MD Unavailable [phone] Encounter Details Date Type Department Care Team (Latest Contact Info) Description 12/16/2015 9:18 AM REVERSING MILL ROLLER - 12/16/2015 11:59 PM REVERSING MILL ROLLER Hospital Encounter [facility] [address] [place] [address] [place] [address] [place] [address] Discharge Disposition: Home or Self [...] Comments Blood Pressure 147/81 12/16/2015 9:08 AM REVERSING MILL ROLLER Pulse 87 12/16/2015 9:08 AM REVERSING MILL ROLLER Temperature - - Respiratory Rate - - Oxygen Saturation - - Inhaled Oxygen Concentration - - Weight 87.1 kg (192 lb) 12/16/2015 9:08 AM REVERSING MILL ROLLER Height 170.2 cm (5' 7 ) 12/16/2015 9:08 AM REVERSING MILL ROLLER Body Mass Index 30.07 12/16/2015 9:08 AM REVERSING MILL ROLLER documented in this encounter Functional Status Functional [...] 7 days Resume when ok with your sheet rock hanger 3 01/07/2016 Other once daily [employer] [...] Comments EKG 12-LEAD Routine 12/16/2015 10:15 AM REVERSING MILL ROLLER Preop examination CBC W AUTO DIFFERENTIAL Routine 12/16/2015 9:33 AM REVERSING MILL ROLLER Preop examination COMPREHENSIVE METABOLIC PANEL Routine 12/16/2015 9:33 AM REVERSING MILL ROLLER Preop examination CULTURE MSSA/MRSA Routine 12/16/2015 8:3 5 AM REVERSING MILL ROLLER Preop examination documented in this encounter Results * EKG 12-LEAD (12/16/2015 10:15 AM REVERSING MILL ROLLER) Ventricular Rate 80 BPM [facility] Atrial Rate 80 BPM [facility] P-R Interval 178 ms [facility] QRS Duration ms 86 ms [facility] Q-T Interval ms 396 ms [facility] QTC Calculation (Bezet) 456 ms [facility] Calculated P [place] 52 degrees [facility] Calculated R [place] -19 degrees [facility] Calculated T [place] 52 degrees [facility] Interpretation EKG Normal sinus rhythm Normal ECG When compared with ECG of 19-MAY-2015 08:31, No significant change was found Confirmed by PHU SPANGLER, [facility] ([id number]) on 12/16/2015 11:41:27 AM [facility] 12/16/2015 10:1 5 AM REVERSING MILL ROLLER 12/16/2015 11:41 AM [facility] Alex Nichols MD ECG ORDERABLES [facility] * (ABNORMAL) COMPREHENSIVE METABOLIC PANEL (12/16/2015 9:33 AM REVERSING MILL ROLLER) Glucose 200(H) 74 - 106 mg/dL 12/16/2015 10:55 AM REVERSING MILL ROLLER [facility] Sodium 141 136 - 145 mmol/L 12/16/2015 10:55 AM REVERSING MILL ROLLER [facility] Potassium 3.9 3.5 - 5.1 mmol/L 12/16/2015 10:55 AM REVERSING MILL ROLLER [facility] Chloride 104 98 - 107 mmol/L 12/16/2015 10:55 AM REVERSING MILL ROLLER [facility] CO2 31 22 - 31 mmol/L 12/16/2015 10:55 AM REVERSING MILL ROLLER [facility] Calcium 8.9 8.5 - 10.1 mg/dL 12/16/2015 10:55 AM [facility] Anion Gap 6 5 - 20 mmol/L 12/16/2015 10:55 AM [facility] BUN 18 7 - 21 mg/dL 12/16/2015 10:55 AM [facility] Creatinine 0.92 0.50 - 1.30 mg/dL 12/16/2015 10:55 AM [facility] Alkaline Phosphatase 68 38 - 126 U/L 12/16/2015 10:55 AM [facility] ALT 25 12 - 78 U/L 12/16/2015 10:55 AM [facility] AST 14 5 - 40 U/L 12/16/2015 10:55 AM [facility] Protein Total 6.8 6.4 - 8.2 gm/dL 12/16/2015 10:55 AM [facility] Albumin 3.5 3.4 - 5.0 gm/dL 12/16/2015 10:55 AM [facility] Bilirubin Total 0.4 0.2 - 1.0 mg/dL 12/16/2015 10:55 AM [facility] eGFR by MDRD >60 >60 mL/min/1.7 3m2 12/16/2015 10:55 AM [facility] eGFR by MDRD >60 >60 mL/min/1.7 3m2 12/16/2015 10:55 AM [facility] Blood BLOOD SPECIMEN / Unknown 12/16/2015 9:33 AM [facility] 12/16/2015 10:32 AM [facility] Alex Nichols MD LAB - CHEMISTRY DANILO WRAY [facility] [address] [place] [address] * (ABNORMAL) CBC W AUTO DIFFERENTIAL (12/16/2015 9:33 AM [facility]) WBC 6.1 4.4 - 10.7 x10^9/L 12/16/2015 10:35 AM [facility] WBC Corrected x10^9/L 12/16/2015 10:35 AM [facility] RBC 4.79 3.80 - 5.20 x10^12/L 12/16/2015 10:35 AM [facility] Hemoglobin 12.8 12.0 - 15.6 gm/dL 12/16/2015 10:35 AM [facility] Hematocrit 39.9 35.9 - 45.5 % 12/16/2015 10:35 AM [facility] MCV 83.3 80.7 - 98.3 fl 12/16/2015 10:35 AM [facility] MCH 26.7 26.7 - 34.0 pg 12/16/2015 10:35 AM [facility] MCHC 32.1 30.8 - 35.9 gm/dL 12/16/2015 10:35 AM [facility] Platelet Count 224 153 - 416 x10^9/L 12/16/2015 10:35 AM [facility] RDW-CV 17.4(H) 12.1 - 14.9 % 12/16/2015 10:35 AM [facility] MPV 9.7 9.4 - 12.9 fl 12/16/2015 10:35 AM [facility] Neutrophils % 79.9(H) 44.0 - 73.0 % 12/16/2015 10:35 AM [facility] Lymphocytes % 12.0(L) 20.0 - 43.0 % 12/16/2015 10:35 AM [facility] Monocytes % 4.4(L) 5.0 - 13.0 % 12/16/2015 10:35 AM [facility] Eosinophils % 2.8 0.0 - 6.0 % 12/16/2015 10:35 AM [facility] Basophils % 0.7 0.0 - 2.0 % 12/16/2015 10:35 AM [facility] Immature Granulocytes 0.2 0 - 1 % 12/16/2015 10:35 AM [facility] Neutrophil Absolute 4.87 2.01 - 7.14 x10^9/L 12/16/2015 10:35 AM [facility] Lymphocytes Absolute 0.73(L) 1.07 - 3.94 x10^9/L 12/16/2015 10:35 AM [facility] Monocytes Absolute 0.27 0.26 - 1.07 x10^9/L 12/16/2015 10:35 AM [facility] Eosinophils Absolute 0.17 0 - 0.47 x10^9/L 12/16/2015 10:35 AM REVERSING MILL ROLLER [facility] Basophils Absolute 0.04 0 - 0.08 x10^9/L 12/16/2015 10:35 AM REVERSING MILL ROLLER [facility] Immature Granulocytes Absolute 0.01 0.00 - 0.06 x10^9/L 12/16/2015 10:35 AM REVERSING MILL ROLLER [facility] nRBC Auto 0 /100 WBC 12/16/2015 10:35 AM REVERSING MILL ROLLER [facility] Blood BLOOD SPECIMEN / Unknown 12/16/2015 9:33 AM REVERSING MILL ROLLER 12/16/2015 10:32 AM REVERSING MILL ROLLER Alex Nichols MD LAB - HEMATOLOGY ORD ERABLES Performing Organization Address City/[facility]/ZIP Co de Phone Number [facility] [address] [place] [address] * CULTURE MSSA/MRSA (12/16/2015 8:35 AM REVERSING MILL ROLLER) Culture Negative for MRSA/MSSA SUZANNE 12/17/2015 2:28 PM REVERSING MILL ROLLER [facility] MICROBIOLOGY Microbiology SPECIMEN FROM NASAL FOSSAE / Unknown 12/16/2015 8:35 AM REVERSING MILL ROLLER 12/16/2015 10:31 AM REVERSING MILL ROLLER Alex Nichols MD LAB - MICROBIOLOGY O RDERABLES Performing Organization Address City/[facility]/ZIP Co de Phone Number [facility] MICROBIOLOGY [address] [place] [address] [phone] documented in this encounter Visit Diagnoses Diagnosis Preop examination- Primary Preoperative examination, unspecified documented in this encounter Care Teams Marine Pipefitter Relationship Specialty Start Date End Date Francisco Long MD PCP - General Internal Medicine 07/03/14 [place] [address] [address] Orthopedic Surgery 04/22/15 documented as of this encounter
--- OUTSIDE RECORDS SUMMARY | 2024-11-16 15:24 | XMS_ITS | Encounter Summary ---
Author Organization [facility] Health Address [address] [facility] [place] [address] Care Team Providers Care French Lecturer Name Role Phone Francisco Long MD Primary Care Provider Unavail able Alex Nichols MD Unavailable [phone] Reason for Visit * Reason Onset Date Comments Question 11/16/2015 Encounter Details Date Type Department Care Team (Late st Contact Info) Description 11/16/2015 Telephone [facility] Orthopedics [address] [facility] [address] [place] [address] [place] [address] [facility] [address] [place] [address] Question Social History Tobacco Use [...] number to call to schedule an appointment. LEMENT CLERK * Telephone Encounter - Chitra Matos, RN - 11/16/2015 2:35 PM CST Pt has questions regarding where her nasal swab can be done. LEMENT CLERK documented in this encounter Plan of Treatment Not on file documented as of this encounter Visit Diagnoses Not on filedocumented in this encounter Care Teams French Lecturer Relationship Specialty Start Date End Date Francisco Long MD PCP - General Internal Medicine 07/03/14 [place] [address] [facility] [address] [place] [address] Orthopedic Surgery 04/22/15 documented as of this encounter
--- OUTSIDE RECORDS SUMMARY | 2024-11-16 15:24 | XMS_ITS | Encounter Summary ---
Author Organization [facility] Health Address [address] [facility] [place] [address] Care Team Providers Care Carrier Packer Name Role Phone Francisco Long MD Primary Care Provider Unavail able Alex Nichols MD Unavailable [phone] Reason for Visit * Reason Comments Post-Op POV of LTKA 3wks out Encounter Details Date Type Department Care Team (Late st Contact Info) Description 07/02/2015 9:50 AM CDT Office Visit [facility] Orthopedics [address] [facility] [address] [place] [address] [place] [address] [address] Osteoarthrosis, unspecified whether generalized or [...] 12:56:49 Electronically Signed 07/05/2015 12:58:45 PJD/MedQ #: [id number] documented in this encounter Plan of Treatment Not on file documented as of this encounter Visit Diagnoses Diagnosis Osteoarthrosis, unspecified whether generalized or localized, lower leg- Primary documented in this encounter Care Teams Carrier Packer Relationship Specialty Start Date End Date Francisco Long MD PCP - General Internal Medicine 07/03/14 [place] [address] [place] [address] Orthopedic Surgery 04/22/15 documented as of this encounter
--- OUTSIDE RECORDS SUMMARY | 2024-11-16 15:24 | XMS_ITS | Encounter Summary ---
Author Organization [facility] Health Address [address] [facility] [place] [address] Care Team Providers Care Patient Transport Orderly Name Role Phone Francisco Long MD Primary Care Provider Unavail able Alex Nichols MD Unavailable [phone] Reason for Visit * Reason Onset Date Comments Question 07/08/2015 Encounter Details Date Type Department Care Team (Late st Contact Info) Description 07/08/2015 Telephone [facility] Orthopedics [address] [facility] [address] [place] [address] [place] [address] [facility] [address] [place] [address] Question Social History Tobacco Use [...] IS PULLING AND HURTS. PLEASE CALL AT [phone] AVAILABLE ANYTIME. documented in this encounter Plan of Treatment Not on file documented as of this encounter Visit Diagnoses Not on filedocumented in this encounter Care Teams Patient Transport Orderly Relationship Specialty Start Date End Date Francisco Long MD PCP - General Internal Medicine 07/03/14 [place] [address] [place] [address] Orthopedic Surgery 04/22/15 documented as of this encounter
--- OUTSIDE RECORDS SUMMARY | 2024-11-16 15:24 | XMS_ITS | Encounter Summary ---
Author Organization [facility] Health Address [address] [place] [place] [address] Care Team Providers Care Food Service Substitute Name Role Phone Francisco Long MD Primary Care Provider Unavail able Alex Nichols MD Unavailable [phone] Reason for Visit * Reason Comments Refill Request Encounter Details Date Type Department Care Team (Late st Contact Info) Description 06/18/2015 Refill [facility] Orthopedics [address] [facility] [address] [place] [address] [place] [address] [facility] [address] [place] [address] Refill Request Social History Tobacco [...] on filedocumented in this encounter Care Teams Food Service Substitute Relationship Specialty Start Date End Date Francisco Long MD PCP - General Internal Medicine 07/03/14 [place] [address] [place] [address] Orthopedic Surgery 04/22/15 documented as of this encounter
--- OUTSIDE RECORDS SUMMARY | 2024-11-16 15:26 | XMS_ITS | Encounter Summary ---
Author Organization [facility] Health Address [facility] [facility] [place] [address] Care Team Providers Care Glass Cutting Machine Operator Name Role Phone Francisco Long MD Primary Care Provider Unavail able Alex Nichols MD Unavailable [phone] Encounter Details Date Type Department Care Team (Latest Contact Info) Description 05/19/2015 8:10 AM CDT - 05/19/2015 11:59 PM CDT Hospital Encounter [facility] [address] [place] [address] [place] [address] [facility] [facility] [address] [place] [address] Discharge Disposition: Home or Self [...] for MRSA/MSSA SUZANNE 05/20/2015 4:14 PM CDT [facility] MICROBIOLOGY Microbiology SPECIMEN FROM NASAL FOSSAE / Unknown 05/19/2015 8:41 AM CDT 05/19/2015 9:29 AM CDT Alex Nichols MD LAB - MICROBIOLOGY O RDERABLES [facility]CRO[facility] [address] [phone] * EKG 12-LEAD (05/19/2015 8:31 AM CDT) Ventricular Rate 69 BPM [facility] Atrial Rate 69 BPM [facility] P-R Interval 188 ms [facility] QRS Duration ms 102 ms [facility] Q-T Interval ms 412 ms [facility] QTC Calculation (Bezet) 441 ms [facility] Calculated P [place] 52 degrees [facility] Calculated R [place] -19 degrees [facility] Calculated T [place] 60 degrees [facility] Interpretation EKG Normal [...] unspecified documented in this encounter Care Teams Glass Cutting Machine Operator Relationship Specialty Start Date End Date Francisco Long MD PCP - General Internal Medicine 07/03/14 [place] [address] [address] [place] [address] Orthopedic Surgery 04/22/15 documented as of this encounter
--- OUTSIDE RECORDS SUMMARY | 2024-11-16 15:26 | XMS_ITS | Encounter Summary ---
Author Organization [facility] Address [address] [facility] [place] [address] Care Team Providers Care Back Up Worker Name Role Phone Francisco Long MD Primary Care Provider Unavail able Alex Nichols MD Unavailable [phone] Reason for Visit * Reason Onset Date Comments Question 06/02/2015 Encounter Details Date Type Department Care Team (Late st Contact Info) Description 06/02/2015 Telephone [facility] Orthopedics [address] [facility] [address] [place] [address] [place] [address] [facility] [address] [place] [address] Question Social History Tobacco Use [...] PM CDT Clearance received. Patient advised by aKren Das. * Telephone Encounter - Gabby Geronimo - 06/02/2015 3:19 PM CDT Patient was calling to make sure that clearance paper work was received. Please advise. documented in this encounter Plan of Treatment Not on file documented as of this encounter Visit Diagnoses Not on filedocumented in this encounter Care Teams Back Up Worker Relationship Specialty Start Date End Date Francisco Long MD PCP - General Internal Medicine 07/03/14 [place] [address] [place], [place] [address] Orthopedic Surgery 04/22/15 documented as of this encounter
--- OUTSIDE RECORDS SUMMARY | 2024-11-16 15:26 | XMS_ITS | Encounter Summary ---
Author Organization [facility] Address [address] [facility] [place] [address] Care Team Providers Care Tenter Feeder Name Role Phone Francisco Long MD Primary Care Provider Unavail able Alex Nichols MD Unavailable Reason for Visit * Auth/Cert (Routine) - Closed Specialty Diagnoses / Procedures Referred By Contac t Referred To Contact Diagnoses Primary localized osteoarthrosis, lower leg Procedures TX TOTAL KNEE ARTHROPLASTY Referral ID Status Reason Start Date Expiration Date Visits Re quested Visits Authorized [id number] Closed 06/03/2015 11/30/2015 1 1 Encounter Details Date Type Department Care Team (Late st Contact Info) Description 06/09/2015 10:43 AM CDT Anesthesia Event [facility] - Perioperative Surgery [address] [place] [address] Mary Matthews MD [facility] [address] [facility] [address] [place] [id number] [place] [address] [place] [address] Anesthesia Record Procedure Summary Procedure Name Responsible [...] this encounter Progress Notes * Quang Sánchez APRN-TRANSPORTATION MUSEUM HELPER - 06/09/2015 12:23 PM CDT ANESTHESIA POSTPROCEDURE [...] EOSINABS, BASOABS, IMMGRANSABS, NRBCAUTO in the last [id number] hours. Mary Matthews MD documented in this [...] mg documented in this encounter Care Teams Tenter Feeder Relationship Specialty Start Date End Date Francisco Long MD PCP - General Internal Medicine 07/03/14 [place] [address] [address] Orthopedic Surgery 04/22/15 documented as of this encounter
--- OUTSIDE RECORDS SUMMARY | 2024-11-16 15:26 | XMS_ITS | Encounter Summary ---
Author Organization [facility] Address [facility] [facility] [place] [address] Care Team Providers Care Crepe Sole Scourer Name Role Phone Francisco Long MD Primary Care Provider Unavail able Alex Nichols MD Unavailable [phone] Reason for Visit * Auth/Cert (Routine) - Closed Specialty Diagnoses / Procedures Referred By Contac t Referred To Contact Diagnoses Primary localized osteoarthrosis, lower leg Procedures AR TOTAL KNEE ARTHROPLASTY Referral ID Status Reason Start Date Expiration Date Visits Re quested Visits Authorized [id number] Closed 06/03/2015 11/30/2015 1 1 Encounter Details Date Type Department Care Team (Latest Contact Info) Description 06/09/2015 9:05 AM CDT - 06/12/2015 12:27 PM CDT Hospital Encounter [address] [place] [address] [place] [address] [address] Surgery General Discharge Disposition: Home [...] wiggles toes, normal sensation to light touch C.O.D. BILLER. Alert , moves all extremities against gravity [...] hold methotrexate for now - followup with cigarette carton sealer as an outpatient 4. Chronic anemia: Monitor [...] Left Bed Mobility: Supine to Sit: Complete Garrett Sit to Supine: Complete Garrett Transfers: Sit to Stand: Modified Garrett Stand to Sit: Modified Garrett Mobility: Distance Ambulated: 220 FEET Ambulation: Assistive Device: Gait Belt;Walker-2 Wheeled Ambulation: Level of Assistance: Modified Garrett Ambulation: Gait Deviations: [place] - Decreased;Step Length [...] significant for Recent Labs Component Name 06/11/15 0501 06/10/15 0113 HGB 10.9* 11.6* HCT 33.3* [...] wiggles toes, normal sensation to light touch C.O.D. BILLER. Alert , moves all extremities against gravity [...] hold methotrexate for now - followup with cigarette carton sealer as an outpatient 4. Chronic anemia: Monitor [...] for patient to be discharged home with [facility] tomorrow, pending physicianapproval. Patient's family will be providing transportation home. CM will continue following for any discharge needs. Ludmila Bright RN, BSN manager food safety [facility] [phone] * Alison Maloney RN - 06/11/2015 7:26 [...] SBA; voiding without difficulty. Pain controlled with Quinby 10. Denies chest pain, SOB, and nausea. [...] Emergency Contact Information Primary Emergency Contact: [facility] Relation: Spouse Anticipated Discharge Date: Anticipated [...] discharge, he/she requests: Proposed Home Health Agency: *[facility] Home Care Intake Transportation at discharge: Family Comments: CM will continue following. Ludmila Bright RN, BSN manager food safety [facility] [phone] * Alessia Stanton - 06/10/2015 5:20 PM CDT Shift highlights: Patient is alert and oriented x 4. Up with one assist. Pain controlled by Quinby 10 q4hrs. Denies any chest pain, SOA, [...] wiggles toes, normal sensation to light touch C.O.D. BILLER. Alert , moves all extremities against gravity [...] hold methotrexate for now - followup with cigarette carton sealer as an outpatient 4. Chronic anemia: Monitor [...] althoughincontinent at times. Pain controlled with Morphine OYSTER CULTIVATOR. Denies chest pain, SOB, and nausea. Encouraged [...] pain pt request to use the ms doctor osteopathic less inorder to sleep. I/o good. Wearing depends from home. Not oob this pm due to slight numbness remains in the left ft. Spouse spending the night. Thanks tao moser * Yennifer Rayo RN - 06/09/2015 6:47 PM CDT Problem: Fall Risk Goal: Patient will remain free of falls Outcome: Ongoing Hourly rounds * Fadia Marrero, PharmD - 06/09/2015 10:35 AM CDT .[facility] Pharmacy Clinical Services Admission Medication [...] Alba PA-C - 06/08/2015 5:35 PM CDT [facility] PRE-OPERATIVE HISTORY AND PHYSICAL PATIENT NAME: Jolene Cedillo : 1945 CSN: [id number] HISTORY OF PRESENT ILLNESS: This is a 69 y.o. year-old female seen at the office regarding her leftknee. The left knee has been symptomatic for over several years. 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 IMPRESSION: [...] TO FOLLOW Doris Gasca L.P.N. ADMISSION COORDINATOR [facility] * Natividad Diamond MD - 06/09/2015 3:32 [...] sounds MSK: no clubbing, cyanosis or edema C.O.D. BILLER. Alert , No facial assymetry, clear speech. [...] hold methotrexate for now - followup with cigarette carton sealer as an outpatient 4. Chronic anemia: Monitor [...] Alex Nichols MD SURGEON: Alex Nichols MD PSYCHIATRY PHYSICIAN: Alix Edwards PA-C The skilled assistance of the JO ANN was necessary for the effective and successful completion of this case. The physician assistant refinery operator was essential for the proper positioning, manipulation [...] - 15.6 gm/dL 06/11/2015 5:15 AM CDT [facility] Hematocrit 33.3(L) 35.9 - 45.5 % 06/11/2015 5:15 AM CDT [facility] Blood BLOOD SPECIMEN / Unknown 06/11/2015 5:09 AM CDT 06/11/2015 5:13 AM CDT Alex Nichols MD LAB - HEMATOLOGY ORD ERABLES [facility] [address] [place] [address] * (ABNORMAL) HGB HCT PANEL (06/10/2015 1:13 AM CDT) Hemoglobin 11.6(L) 12.0 - 15.6 gm/dL 06/10/2015 1:22 AM CDT [facility] Hematocrit 35.1(L) 35.9 - 45.5 % 06/10/2015 1:22 AM CDT [facility] Blood BLOOD SPECIMEN / Unknown 06/10/2015 1:13 AM CDT 06/10/2015 1:18 AM CDT Alex Nichols MD LAB - HEMATOLOGY ORD ERABLES [facility] [address] [place] [address] documented in this encounter Visit Diagnoses Not [...] AM CDT 100 mg morphine 1 mg/ml OYSTER CULTIVATOR Intravenous, OYSTER CULTIVATOR, Starting on Sun06/09/15 at 1236, Until Sun06/10/15 at 0556, OYSTER CULTIVATOR Dose: 1 mg dose with 12 min lockout (5 mg/hr) Contact physician if respiratory rate falls below 10/minute. If respiratory rate < 7/min administer naloxone (Narcan) 0.2 mg IV STAT, begin oxygen at 4-10 LPM, STOP OYSTER CULTIVATOR immediately, and contact physician., Post-op $ New [...] Discontinued documented in this encounter Care Teams Crepe Sole Scourer Relationship Specialty Start Date End Date Francisco Long MD PCP - General Internal Medicine 07/03/14 [place] [address] [place] [id number] Orthopedic Surgery 04/22/15 documented as of this encounter
--- OUTSIDE RECORDS SUMMARY | 2024-11-16 15:26 | XMS_ITS | Encounter Summary ---
Author Organization [facility] Address [address] [facility] [place] [address] Care Team Providers Care Stunt Driver Name Role Phone Francisco Long MD [...] 07/11/2014 1:39 PM CDT Emergency ER at [facility] [id number] [place] [address] Cierra Mtz PA-C [address] [place] [address] Emergency Department [place] [id number] Knee pain, acute, left (Primary Dx); Osteoarthritis [...] For example if you are a weight tree worker, work the upper body on one day [...] by osteoarthritis. ?? A brace called an air drier machine operator brace also may be used to help [...] be helpful. ?? Glucosamine and chondroitin are hcfe-kxl-kyjrhnt dietary supplements. Both may help relieve the [...] Document Reviewed: 09/08/2008 ExitCare?? Patient Information ??2014 [employer]. Degenerative Arthritis You have osteoarthritis. This is [...] be needed for severe flares. Only take chwu-cqu-rbwdspp or prescription medicines for pain, discomfort, or [...] Document Reviewed: 04/13/2008 ExitCare?? Patient Information ??2013 [employer] [place]. documented in this encounter Medications at Time [...] with the patient: 07/11/2014 11:41 Jolene Cedillo [id number] [facility] EMERGENCY DEPARTMENT History Chief Complaint Patient presents with ??? Lower Extremity Problem states she has ahx of right knee pain , has a na ppointment to [facility] but now she has reecntly tripped and [...] to follow-up with: Francisco Long MD #2 [facility] [address] [facility] [address] [place] [address] [address] [facility] [address] Call For follow-up Disposition: Discharged 07/11/2014 12:10 [...] leg documented in this encounter Care Teams Stunt Driver Relationship Specialty Start Date End Date Francisco Long MD PCP - General Internal Medicine 07/03/14 documented as of this encounter
--- OUTSIDE RECORDS SUMMARY | 2024-11-16 15:26 | XMS_ITS | Encounter Summary ---
Author Organization [facility] Address [address] [facility] [place] [address] Care Team Providers Care Curriculum And Assessment Director Name Role Phone Francisco Long MD Primary Care Provider Unavail able Alex Nichols MD Unavailable [phone] Reason for Visit * Reason Onset Date Comments Question 06/01/2015 Encounter Details Date Type Department Care Team (Late st Contact Info) Description 06/01/2015 Telephone [facility] Orthopedics [address] [facility] [address] [place] [address] [place] [address] [facility] [address] [place] [address] Question Social History Tobacco Use [...] on filedocumented in this encounter Care Teams Curriculum And Assessment Director Relationship Specialty Start Date End Date Francisco Long MD PCP - General Internal Medicine 07/03/14 [place] [address] [place] [address] Orthopedic Surgery 04/22/15 documented as of this encounter
--- OUTSIDE RECORDS SUMMARY | 2024-11-16 15:26 | XMS_ITS | Encounter Summary ---
Author Organization [facility] Address [address] [place] [address] Care Team Providers Care Sweat Band Sewer Name Role Phone Francisco Long MD Primary Care Provider Unavail able Alex Nichols MD Unavailable Reason for Visit * Auth/Cert (Routine) - Closed Specialty Diagnoses / Procedures Referred By Contac t Referred To Contact Diagnoses Primary localized osteoarthrosis, lower leg Procedures CT TOTAL KNEE ARTHROPLASTY Referral ID Status Reason Start Date Expiration Date Visits Re quested Visits Authorized [id number] Closed 06/03/2015 11/30/2015 1 1 Encounter Details Date Type Department Care Team (Late st Contact Info) Description 06/09/2015 10:05 AM CDT - 06/09/2015 12:17 PM CDT Surgery [facility] - Perioperative Surgery [address] [place] [address] [place] [address] [facility] 100 [place] [address] LEFT TOTAL KNEE ARTHROPLASTY Surgery Details Date/Time Status Location OR Service Patient Class Case Class Case Type Trauma Case? 06/09/2015 10:05 AM Posted [facility] MAIN OR OR 12 Orthopedics Manager Cash Admit Surgical Elective > 5 days Panel [...] discharge diagnosis is DJD (degenerative joint disease) [609080] No special diet needed Resume your normal [...] wiggles toes, normal sensation to light touch COLLAR TURNER. Alert , moves all extremities against gravity [...] hold methotrexate for now - followup with garden worker as an outpatient 4. Chronic anemia: Monitor [...] Left Bed Mobility: Supine to Sit: Complete [place] Sit to Supine: Complete [place] Transfers: Sit to Stand: Modified [place] Stand to Sit: Modified [place] Mobility: Distance Ambulated: 220 FEET Ambulation: Assistive Device: Gait Belt;Walker-2 Wheeled Ambulation: Level of Assistance: Modified [place] Ambulation: Gait Deviations: [place] - Decreased;Step Length [...] wiggles toes, normal sensation to light touch COLLAR TURNER. Alert , moves all extremities against gravity [...] hold methotrexate for now - followup with garden worker as an outpatient 4. Chronic anemia: Monitor [...] for patient to be discharged home with [facility] tomorrow, pending physicianapproval. Patient's family will be providing transportation home. CM will continue following for any discharge needs. Ludmila Bright RN, BSN manager financial reporting [facility] [phone] * Alison Maloney RN - 06/11/2015 7:26 [...] SBA; voiding without difficulty. Pain controlled with Gate 10. Denies chest pain, SOB, and nausea. [...] Contact Information Primary Emergency Contact: [facility] Relation: Spouse Anticipated Discharge Date: Anticipated [...] discharge, he/she requests: Proposed Home Health Agency: *[facility] Home Care Intake Transportation at discharge: Family Comments: CM will continue following. Ludmila Bright RN, BSN manager financial reporting [facility] [phone] * Alessia Stanton - 06/10/2015 5:20 PM CDT Shift highlights: Patient is alert and oriented x 4. Up with one assist. Pain controlled by Gate 10 q4hrs. Denies any chest pain, SOA, [...] wiggles toes, normal sensation to light touch COLLAR TURNER. Alert , moves all extremities against gravity [...] hold methotrexate for now - followup with garden worker as an outpatient 4. Chronic anemia: Monitor [...] acute care. Rivka Centeno PT, DPT x [phone] If this is the last PT visit, this note serves as the discharge summary. * Paula Zavala RN - 06/10/2015 5:35 AM CDT Shift Highlight: Jolene is alert and oriented x4. Up with CGA; voiding without difficulty althoughincontinent at times. Pain controlled with Morphine STRIPPING SHOVEL OPERATOR. Denies chest pain, SOB, and nausea. Encouraged [...] pain pt request to use the ms jar capper less inorder to sleep. I/o good. Wearing depends from home. Not oob this pm due to slight numbness remains in the left ft. Spouse spending the night. Thanks tao moser * Yennifer Rayo RN - 06/09/2015 6:47 PM CDT Problem: Fall Risk Goal: Patient will remain free of falls Outcome: Ongoing Hourly rounds * Fadia Marrero PharmD - 06/09/2015 10:35 AM CDT .[facility] Pharmacy Clinical Services Admission Medication Review [...] Alba PA-C - 06/08/2015 5:35 PM CDT [facility] PRE-OPERATIVE HISTORY AND PHYSICAL PATIENT NAME: Jolene Cedillo : 1945 CSN: [id number] HISTORY OF PRESENT ILLNESS: This is a 69 y.o. year-old female seen at the office regarding her leftknee. The left knee has been symptomatic for over several years. 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 IMPRESSION: [...] TO FOLLOW Doris Gasca L.P.N. ADMISSION COORDINATOR [facility] * Natividad Diamond MD - 06/09/2015 3:32 [...] sounds MSK: no clubbing, cyanosis or edema COLLAR TURNER. Alert , No facial assymetry, clear speech. [...] hold methotrexate for now - followup with garden worker as an outpatient 4. Chronic anemia: Monitor [...] Alex Nichols MD SURGEON: Alex Nichols MD ZIPPER IRONER: Alix Edwards PA-C The skilled assistance of the JO ANN was necessary for the effective and successful completion of this case. The physician media assistant was essential for the proper positioning, [...] provider. Scanned Document LAB - THERAPEUTIC DR NEGRTEE MONITORING ORDERABLES * (ABNORMAL) HGB HCT PANEL (06/11/2015 5:09 AM CDT) Hemoglobin 10.9(L) 12.0 - 15.6 gm/dL 06/11/2015 5:15 AM CDT [facility] Hematocrit 33.3(L) 35.9 - 45.5 % 06/11/2015 5:15 AM CDT [facility] Blood BLOOD SPECIMEN / Unknown 06/11/2015 5:09 AM CDT 06/11/2015 5:13 AM CDT Alex Nichols MD LAB - HEMATOLOGY ORD ERABLES Performing Organization Address City/State/[facility] Co de Phone Number [facility] [address] [place] [address] * (ABNORMAL) HGB HCT PANEL (06/10/2015 1:13 AM CDT) Hemoglobin 11.6(L) 12.0 - 15.6 gm/dL 06/10/2015 1:22 AM CDT [facility] Hematocrit 35.1(L) 35.9 - 45.5 % 06/10/2015 1:22 AM CDT [facility] Blood BLOOD SPECIMEN / Unknown 06/10/2015 1:13 AM CDT 06/10/2015 1:18 AM CDT Alex Nichols MD LAB - HEMATOLOGY ORD ERABLES Performing Organization Address [facility] de Phone Number [facility] [address] [place] [address] documented in this encounter Visit Diagnoses Diagnosis [...] Zavala RN)[phone] ($ Given - Provider: Alessia Stanton)[phone] [...] Discontinued documented in this encounter Care Teams Sweat Band Sewer Relationship Specialty Start Date End Date Francisco Long MD PCP - General Internal Medicine 07/03/14 [place] [address] [place] [address] Orthopedic Surgery 04/22/15 documented as of this encounter
--- OUTSIDE RECORDS SUMMARY | 2024-11-16 15:26 | XMS_ITS | Encounter Summary ---
Author Organization [facility] Address [address] [place] [address] Care Team Providers Care Risk And Insurance Manager Name Role Phone Francisco Long MD Primary Care Provider Unavail able Alex Nichols MD Unavailable Reason for Visit * Reason Comments Pain Knee left knee Encounter Details Date Type Department Care Team (Late st Contact Info) Description 04/22/2015 11:00 AM CDT Office Visit [facility] Orthopedics [address] [facility] [address] [place] [address] Cornelio Alba PA-C [address] [facility] [address] [place] [phone] Osteoarthrosis, unspecified whether generalized or localized, lower [...] 15:29:26 Electronically Signed 04/26/2015 15:29:26 PJD/MedQ #: [id number] documented in this encounter Procedure Notes * [...] comments documented in this encounter Care Teams Risk And Insurance Manager Relationship Specialty Start Date End Date Francisco Long MD PCP - General Internal Medicine 07/03/14 [place] [address] [place] [address] Orthopedic Surgery 04/22/15 documented as of this encounter
--- OUTSIDE RECORDS SUMMARY | 2024-11-16 15:26 | XMS_ITS | Encounter Summary ---
Author Organization [facility] Address [address] [place] [address] Care Team Providers Care Rackman Name Role Phone Francisco Long MD Primary Care Provider Unavail able Reason for Visit * Reason Comments Lower Extremity Problem bilateral knees, injected on 08/03/14 Encounter Details Date Type Department Care Team (Late st Contact Info) Description 10/08/2014 10:50 AM SAND CARRIER Office Visit [facility] Orthopedics [address] [facility] [address] [place] [address] Cornelio Alba PA-C [address] [facility] [address] [place] [phone] Osteoarthrosis, unspecified whether generalized or localized, lower [...] Lupe Duran MA - 10/08/2014 10:41 AM SAND CARRIER Please call the office with any questions or concerns. CARRIER documented in this encounter Progress Notes * Cornelio Alba PA-C - 10/08/2014 11:12 AM CST djd bilat knees other aches Rheumatoid panel, tj class will for sot or inj CARRIER * Lupe Duran MA - 10/08/2014 10:41 AM CST Pt here for follow up after having both knees injected 08/03/14. CARRIER documented in this encounter H&P Notes * Cornelio Alba PA-C - 10/12/2014 11:04 PM CST DATE OF SERVICE: 10/08/2014 LOCATION: [facility] [address] Jolene returned to our office today for re-evaluation of her knees. She has vdmq-mx-srvn arthritis along each medial joint lines and [...] 08:21:41 Electronically Signed 10/13/2014 08:21:41 PJD/MedQ #: [id number] CARRIER documented in this encounter Plan of Treatment Not on file documented as of this encounter Visit Diagnoses Diagnosis Osteoarthrosis, unspecified whether generalized or localized, lower leg- Primary documented in this encounter Care Teams Rackman Relationship Specialty Start Date End Date Francisco Long MD PCP - General Internal Medicine 07/03/14 documented as of this encounter
--- OUTSIDE RECORDS SUMMARY | 2024-11-16 15:26 | XMS_ITS | Encounter Summary ---
Author Organization [facility] Address [address] [place] [address] Care Team Providers Care Manager Of Development Name Role Phone Francisco Long MD Primary Care Provider Unavail able Reason for Visit * Reason Comments Establish Care bilateral knees Encounter Details Date Type Department Care Team (Late st Contact Info) Description 08/03/2014 2:20 PM CDT Office Visit [facility] Orthopedics [address] [facility] [address] [place] [address] [place] [address] [facility] [address] [place] [address] Osteoarthrosis, unspecified whether generalized or [...] PM CDT DATE OF SERVICE: 08/03/2014 LOCATION: [facility] 220 This is a 68-year-old female here [...] knees flexed view was done, show significant zctf-ex-ealn degenerative change along each medial joint line. She has mhuq-ej-lkec along each medial joint lines and in [...] M.D. Electronically Signed 08/05/2014 15:44:03 PJD/MedQ #: [id number] documented in this encounter Procedure Notes * [...] comments documented in this encounter Care Teams Manager Of Development Relationship Specialty Start Date End Date Francisco Long MD PCP - General Internal Medicine 07/03/14 documented as of this encounter
--- OUTSIDE RECORDS SUMMARY | 2024-11-16 15:27 | XMS_ITS | Encounter Summary ---
Author Organization [facility] Address [address] [place] [address] Care Team Providers Care Showcase Trimmer Name Role Phone Francisco Long MD Primary Care Provider Unavailabl e Reason for Visit * Reason Comments Med Refill Encounter Details Date Type Department Care Team (Late st Contact Info) Description 10/02/2022 Refill [facility] ONCOLOGY AND HEMATOLOGY-[address] [place] [phone] Caron Mohan MD [address] [place] [phone] Malignant neoplasm of upper-inner quadrant of left [...] CDT Appointment [facility] [address] [place] [phone] Caron Mohan MD [address] [place] [address] [phone] 03/19/2025 11:30 AM CDT Office Visit [facility] Oncology and Hematology [place] [address] [facility] [address] [place] [phone] Caron Mohan MD [address] [place], [place] [phone] [place] [address] [facility] [address] [place] [address] documented as of this encounter Visit Diagnoses Diagnosis Malignant neoplasm of upper-inner quadrant of left breast in female, estrogen receptor positive Menopause Symptomatic menopausal or female climacteric states ER+ (estrogen receptor positive status) Estrogen receptor positive status [ER+] documented in this encounter Care Teams Showcase Trimmer Relationship Specialty Start Date End Date Francisco Long MD PCP - General Internal Medicine 06/27/18 documented as of this encounter
--- OUTSIDE RECORDS SUMMARY | 2024-11-16 15:27 | XMS_ITS | Encounter Summary ---
Author Organization [facility] Address [address] [place] [address] Care Team Providers Care Watch And Clock Repair Clerk Name Role Phone Francisco Long MD [...] Info) Description 03/19/2025 10:45 AM CDT Appointment [facility] [address] [address] [place] [address] Caron Mohan MD [address] [facility] [address] [place] [address] 03/19/2025 11:30 AM CDT Office Visit [facility] Oncology and Hematology [address] [address] [facility] [address] [place] [address] Caron Mohan MD [address] [facility] [address] [place] [phone] [place] [address] [facility] [address] [place] [address] documented as of this encounter Visit Diagnoses Not on filedocumented in this encounter Care Teams Watch And Clock Repair Clerk Relationship Specialty Start Date End Date Francisco Long MD PCP - General Internal Medicine 06/27/18 documented as of this encounter
--- OUTSIDE RECORDS SUMMARY | 2024-11-16 15:27 | XMS_ITS ---
Author Organization [facility] Address [address] [place] [address] Phone Care Team Providers Care Field Artillery Officer Name Role Phone Francisco Long MD [...] of diagnosis: 09/23/18 Diagnosis: LEFT IDC ER(+) MS(+) Her 2 (-) Surgeon: Taylor Surgery: 11/22/18 left lump/SLN Medical Oncologist: Kimberlee Chemotherapy: none Radiation Oncologist: Dr. John Ag office at [facility] Radiation: Hormonal therapy: Femara Treatment Summary [...] treatments are documented for this patient in [facility]. Treatments may have been administered in another [...] Ita Vazquez Radiation Oncologist: Dr. John Ag [facility] Primary Care Physician: Dr. Francisco Long iron miner blasting Physician: Dr. Olivia Bolden Stage: Clinical T1 N0; pT1c snN1mi Date of diagnosis: 09/23/18 Diagnosis: Left Invasive Ductal Carcinoma ER(+) MS(+) Her 2 (-) Treatment Summary Chemotherapy Not indicated; Oncotype Dx Recurrence Score = 7, no benefit to chemotherapy Dates: 12/24/18 Radiation Type: External Beam Radiation Site: Left Dates: completed 01/29/19 Surgery Lumpectomy - Left with sentinel lymph node biopsy involving micrometastatic carcinoma in one of two lymph nodes ([id number]). Date: 11/22/18 Endocrine 2.5mg Femara - take [...] estrogen based vaginal creams such as Estrace. [employer] Guidelines on Nutrition and Physical [...] hot dogs), desserts, high-fat dairy products and [place] Islander fries. Most of the studies about cancer [...]
--- OUTSIDE RECORDS SUMMARY | 2024-11-16 15:27 | XMS_ITS | Encounter Summary ---
Author Organization [facility] Address [address] [place] [address] Care Team Providers Care Hand Paint Mixer Name Role Phone Francisco Long MD Primary Care Provider Unavailabl e Reason for Visit * Reason Onset Date Comments DEXA order 02/15/2024 Encounter Details Date Type Department Care Team (Late st Contact Info) Description 02/15/2024 Telephone [facility] ONCOLOGY AND HEMATOLOGY - [place] [address] [facility] [address] [place] [phone] Caron Mohan MD [address] [facility] [address] [place] [address] DEXA order Social History Tobacco Use [...] Ivy RN - 02/15/2024 9:28 AM CDT [facility] department called asking for DEXA order. I faxed it to them. documented in this encounter Plan of Treatment Upcoming Encounters Date Type Department Care Team (Late st Contact Info) Description 03/19/2025 10:45 AM CDT Appointment [facility] [address] [place] [address] Caron Mohan MD [address] [place] [address] 03/19/2025 11:30 AM CDT Office Visit [facility] Oncology and Hematology [place] [address] [place] [address] Caron Mohan MD [address] [place], [place] [phone] [place] [address] [place] [address] documented as of this encounter Visit Diagnoses Not on filedocumented in this encounter Care Teams Hand Paint Mixer Relationship Specialty Start Date End Date Francisco Long MD PCP - General Internal Medicine 06/27/18 documented as of this encounter
--- OUTSIDE RECORDS SUMMARY | 2024-11-16 15:27 | XMS_ITS | Encounter Summary ---
Author Organization [facility] Address [address] [facility] [address] [place]: [place] [address] Care Team Providers Care Synchronous Motor Assembler Name Role Phone Francisco Long MD [...] CDT Appointment [facility] [address] [place] [address] Caron Mohan MD [address] [place] [phone] 03/19/2025 11:30 AM CDT Office Visit [facility] Oncology and Hematology [address] [place] [phone] Caron Mohan MD [address] [place] [phone] [place] [address] [place] [address] documented as of this encounter Visit Diagnoses Not on filedocumented in this encounter Care Teams Synchronous Motor Assembler Relationship Specialty Start Date End Date Francisco Long MD PCP - General Internal Medicine 06/27/18 documented as of this encounter
--- OUTSIDE RECORDS SUMMARY | 2024-11-16 15:27 | XMS_ITS | Encounter Summary ---
Author Organization [facility] Address [address] [place] [address] Care Team Providers Care Assembler Dielectric Heater Name Role Phone Francisco Long MD Primary [...] Caron Mohan MD [address] [place] [address] Referral ID Status Reason Start Date Expiration Date Visits Re quested Visits Authorized [id number] Closed 08/15/2023 09/14/2024 1 1 Reason for Visit * Reason Comments Follow Up 6 months Encounter Details Date Type Department Care Team (Late st Contact Info) Description 08/15/2023 12:00 PM CDT Office Visit [facility] ONCOLOGY AND H[place]ATOLOGY[place] [address] [facility] [address] [place] [phone] Caron Mohan MD [address] [place] [address] Malignant neoplasm of upper-inner quadrant [...] Mohan MD - 08/15/2023 11:57 AM CDT [facility] Oncology and Hematology Date of Service: 08/15/2023 Patient: Jolene Cedillo : 1945 DX - [id number] breast cancer, ER+/VA+/HER2-, NS 6. RX lumpectomy and RT 2017 [...] clot after knee surgery. DEXA 2017 at [facility] but unable to access results. INTERVAL [...] and SLN and RT, [facility] at [facility] March 2023 reviewed - CBC and CMP unremarkable SCANS BILATERAL DIAGNOSTIC DIGITAL MAMMOGRAM WITH TOMOSYNTHESIS, CAD 02/12/23 BIRADS 2 ASSESSMENT and PLAN Ms. Cedillo is a 77 y.o. woman with [id number] breast cancer, ER+/VA+/HER2-, NS 6. She has had lumpectomy. Dr. John Ag in [place] has completed her radiation. OncotypeDX RS=7, 11% recurrence, no benefit to chemo. Since her tumor is strongly ER/VA positive, I have recommended hormonal Rx with oral aromatase inhibitor. She is tolerating this well. Started January 2019. Consider longer than 5 years since N1mi Liudmila January 2023 neg Currently [facility] by labs, imaging, exam Bone density checked Jun 2021, normal - in [place]. Recheck this year ordered, she will get this locally Vitamin D, exercise reviewed. RTC 6 months with [facility] TOBACCO COUNSELING She is not a [...] Info) Description 03/19/2025 10:45 AM CDT Appointment [facility] [address] [place] [address] Caron Mohan MD [address] [place] [phone] 03/19/2025 11:30 AM CDT Office Visit [facility] Oncology and Hematology [address] [place] [address] Caron Mohan MD [address] [place], [place] [phone] [place] [address] [place] [address] documented as of this encounter [...] Findings discussed with the patient. DICTATION LOCATION: [facility] Caron Mohan MD MAMMO ORDERABLES documented in [...] positive documented in this encounter Care Teams Assembler Dielectric Heater Relationship Specialty Start Date End Date Francisco Long MD PCP - General Internal Medicine 06/27/18 documented as of this encounter
--- OUTSIDE RECORDS SUMMARY | 2024-11-16 15:27 | XMS_ITS | Encounter Summary ---
Author Organization [facility] Address [address] [place] [address] Care Team Providers Care Dowel Pin Worker Name Role Phone Francisco Long MD Primary Care Provider Unavailabl e Reason for Visit * Reason Comments Follow Up 6 months with mammo Encounter Details Date Type Department Care Team (Late st Contact Info) Description 02/12/2023 10:45 AM CDT Office Visit [facility] ONCOLOGY AND HEMATOLOGY-[place] [address] [place] [address] Caron Mohan MD [address] [place], [place] [phone] Malignant neoplasm of upper-inner quadrant of left [...] Mohan MD - 02/12/2023 12:02 PM CDT [facility] Oncology and Hematology Date of Service: 02/12/2023 [...] clot after knee surgery. DEXA 2017 at [facility] but unable to access results. INTERVAL HX [...] following features: 1. Size: 12 mm. 2. Richwood score: 6/9. 3. Lymphvascular invasion: Not identified. 4. Stage: pT1c. - Biomarker results: ER 8/8 (positive), GA 8/8 (positive), Her2 IHC 1+ (negative). - Low to intermediate grade ductal carcinoma in situ, minute focus, with associated calcifications. FINAL DIAGNOSIS A. 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 B. Breast, left, lumpectomy: - Invasive ductal carcinoma, with the following features: 1. Size: 1.3 cm. 2. Donnie score: 6/9. 3. Margins: Invasive carcinoma 3 mm from the posterior margin. 4. Lymphvascular invasion: Not definitively identified. 5. Stage: pT1c snN1mi. 6. Biomarkers: HER2 1+ (ER and GA positive performed previously on [id number]). - Radial scar. - Intraductal papilloma (0.1 [...] Cedillo is a 77 y.o. woman with [id number] breast cancer, ER+/GA+/HER2-, NS 6. She has had lumpectomy. Dr. John Ag in [place] has completed her radiation. OncotypeDX RS=7, 11% recurrence, no benefit to chemo. Since her tumor is strongly ER/GA positive, I have recommended hormonal Rx with oral aromatase inhibitor. She is tolerating this well. Started January 2019. Consider longer than 5 years since N1mi Bone density checked Jun 2021, normal - in [place]. Recheck this year with PCP/lens maker locally. Vitamin D, exercise reviewed. Liudmila January [...] Info) Description 03/19/2025 10:45 AM CDT Appointment [facility] [address] [place] [address] Caron Mohan MD [address] [place], [place] [phone] 03/19/2025 11:30 AM CDT Office Visit [facility] Oncology and Hematology [place] [address] [place] [address] Caron Mohan MD [address] [place] [address] [place] [address] [facility] [address] [place] [address] documented as of this encounter Visit Diagnoses Diagnosis Malignant neoplasm of upper-inner quadrant of left breast in female, estrogen receptor positive- Primary Rheumatoid arthritis with rheumatoid factor of multiple sites without organ or systems involvement Personal history of DVT (deep vein thrombosis) Personal history of venous thrombosis and embolism documented in this encounter Care Teams Dowel Pin Worker Relationship Specialty Start Date End Date Francisco Long MD PCP - General Internal Medicine 06/27/18 documented as of this encounter
--- OUTSIDE RECORDS SUMMARY | 2024-11-16 15:27 | XMS_ITS | Encounter Summary ---
Author Organization [facility] Address [address] [place] [address] Care Team Providers Care Primer Boxer Name Role Phone Francisco Long MD Primary [...] Caron Mohan MD [address] [place] [address] Referral ID Status Reason Start Date Expiration Date Visits Re quested Visits Authorized [id number] Open 09/15/2024 10/16/2025 1 1 Reason for Visit * Reason Comments Follow Up Encounter Details Date Type Department Care Team (Late st Contact Info) Description 09/15/2024 1:30 PM CDT Office Visit [facility] Oncology and Hematology [address] [phone] Caron Mohan MD [address] [place] [address] Malignant neoplasm of upper-inner quadrant of [...] Mohan MD - 09/15/2024 1:35 PM CDT [facility] Oncology and Hematology Date of Service: 09/15/2024 Patient: Jolene Cedillo : 1945 DX - [id number] breast cancer, ER+/ME+/HER2-, NS 6. RX lumpectomy and RT 2017 [...] clot after knee surgery. DEXA 2017 at [facility] but unable to access results. INTERVAL [...] Cedillo is a 78 y.o. woman with [id number] breast cancer, ER+/ME+/HER2-, NS 6. She has had lumpectomy. Dr. John Ag in [place] has completed her radiation. OncotypeDX RS=7, 11% recurrence, no benefit to chemo. Since her tumor is strongly ER/ME positive, I have recommended hormonal Rx with [...] CDT Appointment [facility] [address] [place] [address] [place] [address] Caron Mohan MD [address] [place] [address] 03/19/2025 11:30 AM CDT Office Visit [facility] Oncology and Hematology [address] [place] [phone] Caron Mohan MD [address] [place] [address] [place] [address] [place] [address] Scheduled Orders Name Type Priority [...] sites documented in this encounter Care Teams Primer Boxer Relationship Specialty Start Date End Date Francisco Long MD PCP - General Internal Medicine 06/27/18 documented as of this encounter
--- OUTSIDE RECORDS SUMMARY | 2024-11-16 15:27 | XMS_ITS | Encounter Summary ---
Author Organization [facility] Address [address] [place] [address] Care Team Providers Care Maintenance Shop Laborer Name Role Phone Francisco Long MD Primary [...] TOMOSYNTHESIS BILATERAL Caron Mohan MD [address] [place] [address] Referral ID Status Reason Start Date Expiration Date Visits Re quested Visits Authorized [id number] Closed 08/15/2023 09/14/2024 1 1 Reason for [...] TOMOSYNTHESIS BILATERAL Caron Mohan MD [address] [facility] [address] [place] [address] Referral ID Status Reason Start Date Expiration Date Visits Re quested Visits Authorized [id number] Closed 08/15/2023 09/14/2024 1 1 Encounter Details Date Type Department Care Team (Latest Contact Info) Description 02/25/2024 11:22 AM CDT - 02/25/2024 11:59 PM CDT Hospital Encounter [facility] [address] [place] [address] Caron Mohan MD [address] [place] [address] Discharge Disposition: Home or Self Care Social [...] CDT Appointment [facility] [address] [place] [address] Caron Mohan MD [address] [place] [address] 03/19/2025 11:30 AM CDT Office Visit [facility] [place] [facility] Oncology and Hematology [place] [address] [place] [address] Caron Mohan MD [address] [place] [address] [place] [address] [facility] [address] [place] [address] documented as of this encounter [...] Findings discussed with the patient. DICTATION LOCATION: [facility] Caron Mohan MD MAMMO ORDERABLES documented in this encounter Visit Diagnoses Diagnosis Malignant neoplasm of upper-inner quadrant of left breast in female, estrogen receptor positive documented in this encounter Care Teams Maintenance Shop Laborer Relationship Specialty Start Date End Date Francisco Long MD PCP - General Internal Medicine 06/27/18 documented as of this encounter
--- OUTSIDE RECORDS SUMMARY | 2024-11-16 15:27 | XMS_ITS | Encounter Summary ---
Author Organization [facility] Address [address] [place] [address] Care Team Providers Care Basket Person Name Role Phone Francisco Long MD Primary [...] Mohan MD [address] [place] [address] Referral ID Status Reason Start Date Expiration Date Visits Re quested Visits Authorized [id number] Closed 08/09/2022 09/09/2023 1 1 Reason for [...] Caron Mohan MD [address] [facility] [address] [place] [address] Referral ID Status Reason Start Date Expiration Date Visits Re quested Visits Authorized [id number] Closed 08/09/2022 09/09/2023 1 1 Encounter Details Date Type Department Care Team (Latest Contact Info) Description 02/12/2023 10:46 AM CDT - 02/12/2023 11:59 PM CDT Hospital Encounter [facility] [address] [place] [address] Caron Mohan MD [address] [place], [place] [phone] Discharge Disposition: Home or Self Care Social [...] CDT Appointment [facility] [address] [place] [address] Caron Mohan MD [address] [place], [place] [phone] 03/19/2025 11:30 AM CDT Office Visit [facility] Oncology and Hematology [address] Long [address] [place] [address] Caron Mohan MD [address] [place] [address] [place] [address] [facility] [address] [place] [address] documented as of this encounter [...] diagnostic mammogram in one year. DICTATION LOCATION: [facility] Caron Mohan MD MAMMO ORDERABLES documented in this encounter Visit Diagnoses Diagnosis Malignant neoplasm of upper-inner quadrant of left breast in female, estrogen receptor positive documented in this encounter Care Teams Basket Person Relationship Specialty Start Date End Date Francisco Long MD PCP - General Internal Medicine 06/27/18 documented as of this encounter
--- OUTSIDE RECORDS SUMMARY | 2024-11-16 15:27 | XMS_ITS | Clinical Summary ---
Author Organization [facility] Address [address] [place] [address] Phone Care Team Providers Care Manager Surgical Name Role Phone Francisco Long MD Primary [...] Radiation Oncologist: Dr. John Ag office at [facility] Radiation: Hormonal therapy: Femara Treatment Summary and Survivorship Plan mailed to home for review. Marked as complete on 06/09/19. Patient is encouraged to call the [facility] office with any additional questions or concerns. Enma Verdugo RN BS BSN Breast Health Nurse Navigator-[facility] Breast lump 09/13/2018 Encounters Date Type Department Care Team Description 09/15/2024 1:30 PM CDT Office Visit [facility] Oncology and Hematology [address] [facility] [address] [place] [address] Caron Mohan MD Malignant neoplasm of upper-inner [...] CDT Respiratory Rate 25 11/22/2018 12:20 PM ROLL OUT MANAGER Oxygen Saturation 97% 09/15/2024 1:27 PM CDT [...] CDT Appointment [facility] [address] [place] [address] Caron Mohan MD [address] [place] [phone] 03/19/2025 11:30 AM CDT Office Visit [facility] Oncology and Hematology [address] Long [address] [place] [address] Caron Mohan MD [address] [facility] [place], [place] [phone] [place] [address] [place] [address] Health Maintenance Due Date Last [...] years Discontinued Medical Devices Implanted Type Area Manager Mortgage Device Identifier Shelf Expiration Date Model / Serial / Lot Hemostat Darrel Surg Mph Pwd 3gm [id number] - [id number] Implanted:Qt y: 1 on 07/09/2018 by Micki Cadena MD at [facility] Hemostatic Pelvis [employer] 03/23/2023 [id number] / [id number] / Hemostat Darrel Surg Mph Pwd 3gm [id number] - [id number] Implanted:Qt y: 1 on 07/09/2018 by Micki Cadena MD at [facility] Hemostatic N/A: Pelvis [employer] [id number] 10/23/2022 [id number] / / [id number] Procedures Procedure Name Priority Date/Time Associated Diagnosis [...] Advance Directives For more information, please contact: [phone] * Full Code (Latest Code Status on File) Date Activated Date Inactivated Comments 11/22/2018 9:15 AM 11/22/2018 2:32 PM * Full Code Date Activated Date Inactivated Comments 07/09/2018 2:57 PM 07/10/2018 7:38 PM * Full Code Date Activated Date Inactivated Comments 07/09/2018 7:18 AM 07/09/2018 2:57 PM Care Teams Manager Surgical Relationship Specialty Start Date End Date Francisco Long MD PCP - General Internal Medicine 06/27/18
--- OUTSIDE RECORDS SUMMARY | 2024-11-16 15:27 | XMS_ITS | Encounter Summary ---
Author Organization [facility] Address [address] [place] [address] Care Team Providers Care Short Range Air Defense Artillery Name Role Phone Francisco Long MD Primary [...] Appointment [facility] [address] [address] [place] [address] Caron Mohan MD [address] [facility] [address] [place] [address] 03/19/2025 11:30 AM CDT Office Visit [facility] Oncology and Hematology [address] [address] [facility] [address] [place] [address] Caron Mohan MD [address] [facility] [address] [place] [phone] [place] [address] [facility] [address] [place] [address] documented as of this encounter Visit Diagnoses Not on filedocumented in this encounter Care Teams Short Range Air Defense Artillery Relationship Specialty Start Date End Date Francisco Long MD PCP - General Internal Medicine 06/27/18 documented as of this encounter
--- OUTSIDE RECORDS SUMMARY | 2024-11-16 15:27 | XMS_ITS | Encounter Summary ---
Author Organization [facility] Address [address] [place] [address] Care Team Providers Care Member Services Representative Name Role Phone Francisco Long MD Primary Care Provider Unavailabl e Reason for Visit * Reason Comments Follow Up 6 MO WITH MMG Encounter Details Date Type Department Care Team (Late st Contact Info) Description 02/25/2024 12:30 PM CDT Office Visit [facility] Oncology and Hematology [address] [place] [address] [place] [address] Caron Mohan MD [address] [place], [place] [phone] Rheumatoid arthritis with rheumatoid factor of multiple [...] Mohan MD - 02/25/2024 12:32 PM CDT [facility] Oncology and Hematology Date of Service: 02/25/2024 Patient: Jolene Cedillo : 1945 DX - [id number] breast cancer, ER+/MD+/HER2-, NS 6. RX lumpectomy and RT 2017 [...] clot after knee surgery. DEXA 2017 at [facility] but unable to access results. [...] and RT, DILLON ASSESSMENT and PLAN Ms. Cdeillo is a 78 y.o. woman with [id number] breast cancer, ER+/MD+/HER2-, NS 6. She has had lumpectomy. Dr. John Ag in [place] has completed her radiation. OncotypeDX RS=7, 11% [...] [facility] [address] [place] [address] Caron Mohan MD [address] [place] [phone] 03/19/2025 11:30 AM CDT Office Visit [facility] Oncology and Hematology [address] [place] [address] Caron Mohan MD [address] [place] [phone] [place] [address] [address] [place] [address] documented as of this encounter [...] metabolism documented in this encounter Care Teams Member Services Representative Relationship Specialty Start Date End Date Francisco Long MD PCP - General Internal Medicine 06/27/18 documented as of this encounter
--- OUTSIDE RECORDS SUMMARY | 2024-11-16 15:28 | XMS_ITS | Encounter Summary ---
Author Organization [facility] Address [address] [place]: [place] [address] Care Team Providers Care Machine Tool Electrician Name Role Phone Francisco Long MD Primary [...] COVID-19? No / Unsure 11/16/2020 10:37 AM [employer] documented as of this encounter Plan of Treatment Upcoming Encounters Date Type Department Care Team (Late st Contact Info) Description 03/19/2025 10:45 AM CDT Appointment [facility] [address] [place] [phone] Caron Mohan MD [address] [place] [address] 03/19/2025 11:30 AM CDT Office Visit [facility] Oncology and Hematology [address] [place] [address] Caron Mohan MD [address] [place] [address] [place] [address] [place] [address] documented as of this encounter Visit Diagnoses Not on filedocumented in this encounter Care Teams Machine Tool Electrician Relationship Specialty Start Date End Date Francisco Long MD PCP - General Internal Medicine 06/27/18 documented as of this encounter
--- OUTSIDE RECORDS SUMMARY | 2024-11-16 15:28 | XMS_ITS | Encounter Summary ---
Author Organization [facility] Address [address] [place] [address] Care Team Providers Care Carbon Accountant Name Role Phone Francisco Long MD Primary Care Provider Unavailabl e Encounter Details Date Type Department Care Team (Late st Contact Info) Description 06/09/2019 [facility] [address] [place] [address] Enma Verdugo RN Social History [...] Verdugo RN BS BSN Breast Health Nurse Navigator-[facility] documented in this encounter Plan of Treatment Upcoming Encounters Date Type Department Care Team (Late st Contact Info) Description 03/19/2025 10:45 AM CDT [facility] [address] [place] [address] Caron Mohan MD [address] [place] [address] 03/19/2025 11:30 AM CDT Office Visit [facility] Oncology and Hematology [address] [address] [address] [place] [address] Caron Mohan MD [address] [place] [address] [place] [address] [address] [place] [address] documented as of this encounter Visit Diagnoses Not on filedocumented in this encounter Care Teams Carbon Accountant Relationship Specialty Start Date End Date Francisco Long MD PCP - General Internal Medicine 06/27/18 documented as of this encounter
--- OUTSIDE RECORDS SUMMARY | 2024-11-16 15:28 | XMS_ITS | Encounter Summary ---
Author Organization [facility] Address [address] [place] [address] Care Team Providers Care Black Topper Name Role Phone Francisco Long MD Primary Care Provider Unavailabl e Reason for Visit * Reason Comments Medication Refill Encounter Details Date Type Department Care Team (Late st Contact Info) Description 06/21/2021 Refill [facility] ONCOLOGY AND HEMATOLOGY-[place] [address] [facility] [address] [place] [address] Caron Mohan MD [address] [place], [place] [phone] Malignant neoplasm of upper-inner quadrant of left [...] started January 2019.--refilled Next BMD 06/28/2021 @ [facility]--orders faxed documented in this encounter Plan of Treatment Upcoming Encounters Date Type Department Care Team (Late st Contact Info) Description 03/19/2025 10:45 AM CDT Appointment [facility] [address] [place] [phone] Caron Mohan MD [address] [place], [place] [phone] 03/19/2025 11:30 AM CDT Office Visit [facility] Oncology and Hematology [address] [place] [address] Caron Mohan MD [address] [place], [place] [phone] [place] [address] [facility] [address] [place] [address] documented as of this encounter Visit Diagnoses Diagnosis Malignant neoplasm of upper-inner quadrant of left breast in female, estrogen receptor positive- Primary Menopause Symptomatic menopausal or female climacteric states ER+ (estrogen receptor positive status) Estrogen receptor positive status [ER+] documented in this encounter Care Teams Black Topper Relationship Specialty Start Date End Date Francisco Long MD PCP - General Internal Medicine 06/27/18 documented as of this encounter
--- OUTSIDE RECORDS SUMMARY | 2024-11-16 15:28 | XMS_ITS | Encounter Summary ---
Author Organization [facility] Address [address] [place] [address] Care Team Providers Care Compounding Technician Name Role Phone Francisco Long MD Primary Care Provider Unavailabl e Reason for Visit * Reason Comments Follow Up Encounter Details Date Type Department Care Team (Late st Contact Info) Description 02/06/2022 3:00 PM CDT Office Visit [facility] ONCOLOGY AND HEMATOLOGY-[place] LAQU[place] [address] [facility] [address] [place] [address] Caron Mohan MD [address] [place], [place] [phone] Malignant neoplasm of upper-inner quadrant of left [...] Mohan MD - 02/06/2022 3:02 PM CDT [facility] Oncology and Hematology Date of Service: 02/06/2022 [...] clot after knee surgery. DEXA 2017 at [facility] but unable to access results. [...] pT1c. - Biomarker results: ER 8/8 (positive), DC 8/8 (positive), Her2 IHC 1+ (negative). - Low to intermediate grade ductal carcinoma in situ, minute focus, with associated calcifications. FINAL DIAGNOSIS A. 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 ?? B. Breast, left, lumpectomy: - Invasive ductal carcinoma, with the following features: 1. Size: 1.3 cm. 2. Donnie score: 6/9. 3. Margins: Invasive carcinoma 3 mm from the posterior margin. 4. Lymphvascular invasion: Not definitively identified. 5. Stage: pT1c snN1mi. 6. Biomarkers: HER2 1+ (ER and DC positive performed previously on [id number]). - Radial scar. - Intraductal papilloma (0.1 [...] Cedillo is a 76 y.o. woman with [id number] breast cancer, ER+/DC+/HER2-, NS 6. She has had lumpectomy. Dr. John Ag in [place] has completed her radiation. OncotypeDX RS=7, 11% recurrence, no benefit to chemo. Since her tumor is strongly ER/DC positive, I have recommended hormonal Rx with [...] 03/19/2025 10:45 AM CDT Appointment [facility] [address] [place] [phone] Caron Mohan MD [address] [facility] [address] [place] [phone] 03/19/2025 11:30 AM CDT Office Visit [facility] Oncology and Hematology [address] [place] [address] Caron Mohan MD [address] [facility] [address] [place] [phone] [place] [address] [place] [address] documented as of this encounter [...] breast documented in this encounter Care Teams Compounding Technician Relationship Specialty Start Date End Date Francisco Long MD PCP - General Internal Medicine 06/27/18 documented as of this encounter
--- OUTSIDE RECORDS SUMMARY | 2024-11-16 15:28 | XMS_ITS | Encounter Summary ---
Author Organization [facility] Address [address] Worrell: [place] [address] Care Team Providers Care Claims Analyst Name Role Phone Francisco Long MD [...] AM CDT Appointment [facility] [address] [place] [address] Caron Mohan MD [address] [place] [phone] 03/19/2025 11:30 AM CDT Office Visit [facility] Oncology and Hematology [address] [place] [address] Caron Mohan MD [address] [place] [address] [place] [address] [place] [address] documented as of this encounter Visit Diagnoses Not on filedocumented in this encounter Care Teams Claims Analyst Relationship Specialty Start Date End Date Francisco Long MD PCP - General Internal Medicine 06/27/18 documented as of this encounter
--- OUTSIDE RECORDS SUMMARY | 2024-11-16 15:28 | XMS_ITS | Encounter Summary ---
Author Organization [facility] Address [address] [place] [address] Care Team Providers Care Roping Tender Name Role Phone Francisco Long MD Primary Care Provider Unavailabl e Encounter Details Date Type Department Care Team (Latest Contact Info) Description 05/14/2019 11:18 AM CDT - 05/14/2019 11:59 PM CDT Hospital Encounter [facility] Outpatient Laboratory Services [address] [address] [place] [address] Caron Mohan MD [address] [facility] [address] [address] [place], [place] [phone] Discharge Disposition: Home or Self Care Social [...] AM CDT Appointment [facility] [address] [place] [address] Caron Mohan MD [address] [place] [address] 03/19/2025 11:30 AM CDT Office Visit [facility] Oncology and Hematology [address] [place] [address] Caron Mohan MD [address] [place] [address] [place] [address] [facility] [address] [place] [address] documented as of this encounter [...] - 100 ng/mL 05/15/2019 2:20 AM CDT [facility] [employer] [facility] Blood Venipuncture / Unknown 05/14/2019 11:22 AM CDT 05/14/2019 11:22 AM CDT Narrative [facility] [employer] [facility] - 05/15/2019 2:20 AM CDT Interpretive Data Chart: Deficient: 0 - 20 ng/mL Insufficient: 21 - 29 ng/mL Sufficient: 30 - 100 ng/mL Increased Risk of Hypercalciuria: >100 ng/mL Toxic: >150 ng/mL Caron Mohan MD CHEMISTRY ORDERABLES [facility]# [id number] [address] [place] [address] documented in this encounter Visit Diagnoses Diagnosis Vitamin D deficiency Unspecified vitamin D deficiency Aromatase inhibitor use Use of aromatase inhibitors Malignant neoplasm of upper-inner quadrant of left breast in female, estrogen receptor positive documented in this encounter Care Teams Roping Tender Relationship Specialty Start Date End Date Francisco Long MD PCP - General Internal Medicine 06/27/18 documented as of this encounter
--- OUTSIDE RECORDS SUMMARY | 2024-11-16 15:28 | XMS_ITS | Encounter Summary ---
Author Organization [facility] Address [address] [place] [address] Care Team Providers Care Household Refrigerator Mechanic Name Role Phone Francisco Long MD Primary Care Provider Unavailabl e Reason for Visit * Reason Onset Date Comments Medication Refill Medication Refill 02/16/2020 Encounter Details Date Type Department Care Team (Late st Contact Info) Description 02/16/2020 Refill [facility] ONCOLOGY AND HEMATOLOGY-[address] [place] [address] Caron Mohan MD [address] [place] [address] Social History Tobacco Use Types Packs/Day [...] Telephone Encounter - Pricilla Olsen RN - 02/16/2020 3:29 PM CDT 02/10/19 femara--refilled RTC 05/10/2020 documented in this encounter Plan of Treatment Upcoming Encounters Date Type Department Care Team (Late st Contact Info) Description 03/19/2025 10:[address] [facility] [address] [address] [place] [address] Caron Mohan MD [address] [place], [place] [phone] 03/19/2025 11:30 AM CDT [facility] [address] [place] [address] Caron Mohan MD [address] [place], [place] [phone] [place] [address] [place] [address] documented as of this encounter Visit Diagnoses Not on filedocumented in this encounter Care Teams Household Refrigerator Mechanic Relationship Specialty Start Date End Date Francisco Long MD PCP - General Internal Medicine 06/27/18 documented as of this encounter
--- OUTSIDE RECORDS SUMMARY | 2024-11-16 15:28 | XMS_ITS | Encounter Summary ---
Author Organization [facility] Address [address] [place] [address] Care Team Providers Care Food Manager Name Role Phone Francisco Long MD [...] DIGITAL BREAST [place] [address] [place] [address] Referral ID Status Reason Start Date Expiration Date Visits Re quested Visits Authorized [id number] Closed 11/12/2019 12/12/2020 1 1 L OR WOOD BLOCKER Reason for Visit * Radiology Services (Routine) - Closed Specialty Diagnoses / Procedures Referred By Halima garcia Referred To Contact Diagnoses Malignant neoplasm of upper-inner quadrant of left breast in female, estrogen receptor positive Procedures MAMMO DIAG BILAT 3D CATHY W OR WO CAD CHG DIAGNOSTIC MAMMOGRAPHY COMPUTER-AIDED DETCJ BI CHG DIGITAL BREAST TOMOS[place] [address] [place] [address] Referral ID Status Reason Start Date Expiration Date Visits Re quested Visits Authorized [id number] Closed 11/12/2019 12/12/2020 1 1 Encounter Details Date Type Department Care Team (Latest Contact Info) Description 12/01/2020 10:16 AM METAL OR WOOD BLOCKER - 12/01/2020 11:59 PM METAL OR WOOD BLOCKER Hospital Encounter [facility] [address] [place] [address] [place] [address] [place] [phone] Discharge Disposition: Home or Self Care Social [...] COVID-19? No / Unsure 12/01/2020 10:08 AM METAL OR WOOD BLOCKER documented as of this encounter Medications at [...] AM CDT Appointment [facility] [address] [place] [phone] Caron Mohan MD [address] [facility] [address] [place], [place] [phone] 03/19/2025 11:30 AM CDT [facility] [address] [address] [facility] [address] [place] [address] Caron Mohan MD [address] [place], [place] [phone] [place] [address] [facility] [address] [place] [address] documented as of this encounter Procedures Procedure Name Priority Date/Time Associated Diagnosis Comments MAMMO DIAG BILAT 3D CATHY W OR WO CAD Routine 12/01/2020 10:36 AM METAL OR WOOD BLOCKER Malignant neoplasm of upper-inner quadrant of left breast in female, estrogen receptor positive documented in this encounter Results * MAMMO DIAG BILAT 3D CATHY W OR WO CAD (12/01/2020 10:36 AM METAL OR WOOD BLOCKER) Anatomical Region Laterality Modality Breast Bilateral Mammography 12/01/2020 10:3 6 AM METAL OR WOOD BLOCKER Impressions 12/01/2020 12:38 PM METAL OR WOOD BLOCKER IMPRESSION: No evidence of malignancy within either breast. RECOMMENDATION: Annual mammography is recommended. DICTATION LOCATION: ??Cindy Long Narrative 12/01/2020 12:38 PM METAL OR WOOD BLOCKER BILATERAL FULL-FIELD DIGITAL DIAGNOSTIC MAMMOGRAM WITH 3-D [...] RECOMMENDATION: Annual mammography is recommended. DICTATION LOCATION: [facility] Ita Vazquez MD MAMMO ORDERABLES documented in this encounter Visit Diagnoses Diagnosis Malignant neoplasm of upper-inner quadrant of left breast in female, estrogen receptor positive documented in this encounter Care Teams Food Manager Relationship Specialty Start Date End Date Francisco Long MD PCP - General Internal Medicine 06/27/18 documented as of this encounter
--- OUTSIDE RECORDS SUMMARY | 2024-11-16 15:28 | XMS_ITS | Encounter Summary ---
Author Organization [facility] Address [address] Worrell: [place] [address] Care Team Providers Care Sat Tutor Name Role Phone Francisco Long MD Primary [...] [facility] [address] [place] [address] Caron Mohan MD [address] [place] [phone] 03/19/2025 11:30 AM CDT Office Visit [facility] Oncology and Hematology [address] [place] [phone] Caron Mohan MD [address] [place] [phone] [place] [address] [place] [address] documented as of this encounter Visit Diagnoses Not on filedocumented in this encounter Care Teams Sat Tutor Relationship Specialty Start Date End Date Francisco Long MD PCP - General Internal Medicine 06/27/18 documented as of this encounter
--- OUTSIDE RECORDS SUMMARY | 2024-11-16 15:28 | XMS_ITS | Encounter Summary ---
Author Organization [facility] Address [address] [place] [address] Care Team Providers Care Plastic Press Operator Name Role Phone Francisco Long [...] DIGITAL BREAST TOM[place] [address] [place] [address] Referral ID Status Reason Start Date Expiration Date Visits Re quested Visits Authorized [id number] Closed 11/12/2019 12/12/2020 1 1 LER SOLE Reason for Visit * Reason Comments Follow Up 6mo Encounter Details Date Type Department Care Team (Late st Contact Info) Description 11/12/2019 10:15 AM COBBLER SOLE Office Visit [facility] BREAST SURGERY - [place] [address] [place] [address] [place] [address] [place] [address] Malignant neoplasm of upper-inner quadrant [...] Comments Blood Pressure 140/80 11/12/2019 10:43 AM COBBLER SOLE Pulse - - Temperature - - Respiratory Rate - - Oxygen Saturation - - Inhaled Oxygen Concentration - - Weight 86.2 kg (190 lb) 11/12/2019 10:43 AM COBBLER SOLE Height 170.2 cm (5' 7 ) 11/12/2019 10:43 AM COBBLER SOLE Body Mass Index 29.76 11/12/2019 10:43 AM COBBLER SOLE documented in this encounter Progress Notes * Ita Vazquez MD - 11/12/2019 11:02 AM CST PATIENT: Jolene Cedillo : 1945 DATE: 11/12/2019 Stage: Clinical T1 N0; pT1c snN1mi Date of diagnosis: 09/23/18 Diagnosis: LEFT IDC ER(+) RI(+) Her 2 (-) Surgeon: Taylor Surgery: 11/22/18 left lump/SLN Medical Oncologist: Kimberlee Chemotherapy: none Radiation Oncologist: Dr. John Ag office at [facility] Radiation: Hormonal therapy: Femara CHIEF COMPLAINT: breast [...] ??? 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 RI BX/REMV,LYMPH NODE,DEEP AXILL Left 11/22/2018 LEFT AXILLARY SENTINEL LYMPH NODE BIOPSY WITH NUC MED AT 7:45 AM performed by Ita Vazquez MD at [facility] CC OR ??? RI LAP,LYMPH NODE BX N/A 07/09/2018 PELVIC LYMPH NODE STAGING DAVINCI SI performed by Micki Cadena MD at [facility] OR [facility] ??? RI LAP,RMV ADNEXAL STRUCTURE Bilateral 07/09/2018 SALPINGO-OOPHORECTOMY DAVINCI SI performed by Micki Cadena MD at [facility] OR [facility] ??? RI LAPAROSCOPY W TOT HYSTERECT UTERUS 250 GRAM OR LESS N/A 07/09/2018 HYSTERECTOMY TOTAL DAVINCI SI performed by Micki Cadena MD at [facility] OR [facility] ??? RI MASTECTOMY, PARTIAL Left 11/22/2018 LEFT BREAST LUMPECTOMY WITH NLOC @ 8:30 AM performed by Ita Vazquez MD at [facility] CC OR ALLERGY: Allergies Allergen Reactions [...] file Gets together: Not on file Attends tenriism service: Not on file Active member of [...] with left additional views and ultrasound at [facility]- there is a new 16 mm irregular mass at 9:00 on the left. Stable 1.7 cm nodular density in the left subareolar breast. By ultrasound this measures 1.3 cm. Biopsy is recommended 05/25/17: Bilateral mammogram PATHOLOGY: 11/22/19 A. 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 ?? B. Breast, left, lumpectomy: - Invasive ductal carcinoma, with the following features: 1. Size: 1.3 cm. 2. Donnie score: 6/9. 3. Margins: Invasive carcinoma 3 mm from the posterior margin. 4. Lymphvascular invasion: Not definitively identified. 5. Stage: pT1c snN1mi. 6. Biomarkers: HER2 1+ (ER and RI positive performed previously on [id number]). - Radial scar. - Intraductal papilloma (0.1 [...] following features: ?1. Size: ??12 mm. ?2. Mccalla score: /9. ?3. Lymphvascular invasion: Not identified. ?4. Stage: pT1c. - Biomarker results: ??ER 8/8 (positive), RI 8/8 (positive), Her2 IHC 1+ (negative). - Low to intermediate grade ductal carcinoma in situ, minute focus, with associated calcifications ASSESSMENT AND PLAN: Stage I cancer of the left breast. There is no evidence of local recurrence. I will see her in a year with a bilateral mammogram. . Ita Vazquez MD, FACS cc: Francisco Long MD Murray, Karuna, MD LER SOLE documented in this encounter Plan of Treatment Upcoming Encounters Date Type Department Care Team (Late st Contact Info) Description 03/19/2025 10:45 AM CDT Appointment [facility] [address] [address] [place] [address] Caron Mohan MD [address] [place] [phone] 03/19/2025 11:30 AM CDT Office Visit [facility] Oncology and Hematology [address] [address] [facility] [address] [place] [address] Caron Mohan MD [address] [place] [address] [place] [address] [facility] [facility] [address] [place] [address] documented as of this encounter Results * MAMMO DIAG BILAT 3D CATHY W OR WO CAD (12/01/2020 10:36 AM COBBLER SOLE) Anatomical Region Laterality Modality Breast Bilateral Mammography 12/01/2020 10:3 6 AM COBBLER SOLE Impressions 12/01/2020 12:38 PM COBBLER SOLE IMPRESSION: No evidence of malignancy within either breast. RECOMMENDATION: Annual mammography is recommended. DICTATION LOCATION: ??Cindy Long Narrative 12/01/2020 12:38 PM COBBLER SOLE BILATERAL FULL-FIELD DIGITAL DIAGNOSTIC MAMMOGRAM WITH 3-D [...] RECOMMENDATION: Annual mammography is recommended. DICTATION LOCATION: [facility] Ita Vazquez MD MAMMO ORDERABLES documented in this encounter Visit Diagnoses Diagnosis Malignant neoplasm of upper-inner quadrant of left breast in female, estrogen receptor positive- Primary Malignant neoplasm of upper-inner quadrant of left breast in female, estrogen receptor positive documented in this encounter Care Teams Plastic Press Operator Relationship Specialty Start Date End Date Francisco Long MD PCP - General Internal Medicine 06/27/18 documented as of this encounter
--- OUTSIDE RECORDS SUMMARY | 2024-11-16 15:28 | XMS_ITS | Encounter Summary ---
Author Organization [facility] Address [address] [place] [address] Care Team Providers Care Can Dragger Name Role Phone Francisco Long MD Primary [...] Mohan MD [address] [place] [address] Referral ID Status Reason Start Date Expiration Date Visits Re quested Visits Authorized [id number] Closed 06/08/2021 07/09/2022 1 1 Reason for [...] TOMOSYNTHESIS BILATERAL Caron Mohan MD [address] [facility] [address] [place] [address] Referral ID Status Reason Start Date Expiration Date Visits Re quested Visits Authorized [id number] Closed 06/08/2021 07/09/2022 1 1 Encounter Details Date Type Department Care Team (Latest Contact Info) Description 02/06/2022 1:22 PM CDT - 02/06/2022 11:59 PM CDT Hospital Encounter [facility] [address] [place] [address] Caron Mohan MD [address] [place] [address] Discharge Disposition: Home or Self Care Social [...] AM CDT Appointment [facility] [address] [address] [place] [address] Caron Mohan MD [address] [place] [address] 03/19/2025 11:30 AM CDT Office Visit [facility] Oncology and Hematology [address] Long [address] [place] [address] Caron Mohan MD [address] [place] [address] [place] [address] [facility] [address] [place] [address] documented as of this encounter [...] positive documented in this encounter Care Teams Can Dragger Relationship Specialty Start Date End Date Francisco Long MD PCP - General Internal Medicine 06/27/18 documented as of this encounter
--- OUTSIDE RECORDS SUMMARY | 2024-11-16 15:28 | XMS_ITS | Encounter Summary ---
Author Organization [facility] Address [address] [place] [address] Care Team Providers Care Inseminator Name Role Phone Francisco Long MD Primary Care Provider Unavailabl e Reason for Visit * Reason Comments Follow Up 6 months w/mmg & ult rasound Encounter Details Date Type Department Care Team (Late st Contact Info) Description 12/01/2020 11:45 AM WELCOME WAGON HOSTESS Office Visit [facility] ONCOLOGY AND HEMATOLOGY-[place] [address] [facility] [address] [place] [address] [place] [address] [facility] [facility] [address] [place] [address] Caron Mohan MD [address] [place] [address] Malignant neoplasm of upper-inner quadrant [...] COVID-19? No / Unsure 12/01/2020 10:08 AM WELCOME WAGON HOSTESS documented as of this encounter Last Filed Vital Signs Vital Sign Reading Time Taken Comments Blood Pressure 128/64 12/01/2020 11:44 AM WELCOME WAGON HOSTESS Pulse 68 12/01/2020 11:44 AM WELCOME WAGON HOSTESS Temperature 36.5 ??C (97.7 ??F) 12/01/2020 11:[address] Respiratory Rate - - Oxygen Saturation 96% 12/01/2020 11:44 AM WELCOME WAGON HOSTESS Inhaled Oxygen Concentration - - Weight - - Height 170.2 cm (5' 7 ) 12/01/2020 11:44 AM WELCOME WAGON HOSTESS Body Mass Index - - documented in this encounter Progress Notes * Caron Mohan MD - 12/01/2020 11:46 AM CST [facility] Oncology and Hematology Date of Service: 12/01/2020 [...] following features: 1. Size: 12 mm. 2. Cambridge score: 6/9. 3. Lymphvascular invasion: Not identified. 4. Stage: pT1c. - Biomarker results: ER 8/8 (positive), MA 8/8 (positive), Her2 IHC 1+ (negative). - Low to intermediate grade ductal carcinoma in situ, minute focus, with associated calcifications. FINAL DIAGNOSIS A. 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 ?? B. Breast, left, lumpectomy: - Invasive ductal carcinoma, with the following features: 1. Size: 1.3 cm. 2. Donnie score: 6/9. 3. Margins: Invasive carcinoma 3 mm from the posterior margin. 4. Lymphvascular invasion: Not definitively identified. 5. Stage: pT1c snN1mi. 6. Biomarkers: HER2 1+ (ER and MA positive performed previously on [id number]). - Radial scar. - Intraductal papilloma (0.1 [...] Benign breast tissue, negative for carcinoma. SCANS [facility] today ASSESSMENT and PLAN Ms. Cedillo is a 74 y.o. woman with [id number] breast cancer, ER+/MA+/HER2-, NS 6. She has had lumpectomy. Dr. John Ag in [place] has completed her radiation. OncotypeDX RS=7, 11% recurrence, no benefit to chemo. Since her tumor is strongly ER/MA positive, I have recommended hormonal Rx with oral aromatase inhibitor. She is tolerating this well. Reviewed rationale for AI therapy, management of side effects. Bone density checked February 2019, normal - recheck in [place] this year is scheduled. Vitamin D, exercise [...] hesitate to contact me. Caron Mohan MD OME WAGON HOSTESS documented in this encounter Plan of Treatment Upcoming Encounters Date Type Department Care Team (Late st Contact Info) Description 03/19/2025 10:45 AM CDT Appointment [facility] [address] [place] [phone] Caron Mohan MD [address] [place] [id number] 03/19/2025 11:30 AM CDT Office Visit [facility] Oncology and Hematology [address] [place] [address] Caron Mohan MD [address] [place] [id number] [place] [address] [place] [address] documented as of this encounter [...] embolism documented in this encounter Care Teams Inseminator Relationship Specialty Start Date End Date Francisco Long MD PCP - General Internal Medicine 06/27/18 documented as of this encounter
--- OUTSIDE RECORDS SUMMARY | 2024-11-16 15:28 | XMS_ITS | Encounter Summary ---
Author Organization [facility] Address [address] [place] [address] Care Team Providers Care Painting Contractor Name Role Phone Francisco Long MD Primary Care Provider Unavailabl e Encounter Details Date Type Department Care Team (Late Contact Info) Description 06/30/2021 Orders Only [facility] ONCOLOGY AND HEMATOLOGY-[place] [address] [place] [address] Magalie Shin Malignant neoplasm of [...] CDT Appointment [facility] [address] [place] [address] Caron Mohan MD [address] [place] [address] 03/19/2025 11:30 AM CDT Office Visit [facility] Oncology and Hematology [place] [address] [place] [address] Caron Mohan MD [address] [place] [address] [place] [address] [place] [address] documented as of this encounter Visit Diagnoses Diagnosis Malignant neoplasm of upper-inner quadrant of left breast in female, estrogen receptor positive Asymptomatic menopausal state Asymptomatic postmenopausal status (age-related) (natural) documented in this encounter Care Teams Painting Contractor Relationship Specialty Start Date End Date Francisco Long MD PCP - General Internal Medicine 06/27/18 documented as of this encounter
--- OUTSIDE RECORDS SUMMARY | 2024-11-16 15:28 | XMS_ITS | Encounter Summary ---
Author Organization [facility] Address [address] Worrell: [place] [address] Care Team Providers Care Glost Tile Sorter Name Role Phone Francisco Long MD [...] COVID-19? No / Unsure 12/01/2020 10:08 AM CORE WINDER MACHINE OPERATOR documented as of this encounter Plan of Treatment Upcoming Encounters Date Type Department Care Team (Late st Contact Info) Description 03/19/2025 10:45 AM CDT Appointment [facility] [address] [place] [address] Caron Mohan MD [address] [place] [address] 03/19/2025 11:30 AM CDT Office Visit [facility] Oncology and Hematology [address] [place] [phone] Caron Mohan MD [address] [place] [address] [place] [address] [place] [address] documented as of this encounter Visit Diagnoses Not on filedocumented in this encounter Care Teams Glost Tile Sorter Relationship Specialty Start Date End Date Francisco Long MD PCP - General Internal Medicine 06/27/18 documented as of this encounter
--- OUTSIDE RECORDS SUMMARY | 2024-11-16 15:28 | XMS_ITS | Encounter Summary ---
Author Organization [employer] [facility] Address [address] [place] [address] Care Team Providers Care After School Program Director Name Role Phone Francisco Long MD [...] MD [address] [place] [address] [facility] [address] [address] [place] [address] Referral ID Status Reason Start Date Expiration Date Visits Re quested Visits Authorized [id number] Closed 02/06/2022 05/07/2022 1 1 Reason for Visit * Radiology Services (Routine) - Closed Specialty Diagnoses / Procedures Referred By Contlaura t Referred To Contact Radiology Diagnoses Malignant neoplasm of upper-inner quadrant of left breast in female, estrogen receptor positive Asymptomatic menopausal state Procedures MAMMO BREAST US BIOPSY LEFT Caron Mohan MD [address] [facility] [place] [address] [facility] [address] [address] [place] [address] Referral ID Status Reason Start Date Expiration Date Visits Re quested Visits Authorized [id number] Closed 02/06/2022 05/07/2022 1 1 Encounter Details Date Type Department Care Team (Latest Contact Info) Description 02/14/2022 10:05 AM CDT - 02/14/2022 11:59 PM CDT Hospital Encounter [facility] [address] [place] [address] Caron Mohan MD [address] [place] [address] Discharge Disposition: Home or Self [...] Info) Description 03/19/2025 10:45 AM CDT Appointment [facility] [address] [place] [phone] Caron Mohan MD [address] [place] [address] 03/19/2025 11:30 AM CDT Office Visit [facility] Oncology and Hematology [address] [address] [facility] [address] [place] [address] Caron Mohan MD [address] [place] [address] [place] [address] [facility] [address] [place] [address] documented as of this encounter [...] CASE REPORT Surgical Pathology Report ? Case: [id number] ? Authorizing Provider: ??Kenna Fernandes, DO ??Collected: ? 02/14/2022 12:33 PM ? Ordering Location: ? [facility] ?Received: ?02/14/2022 02:59 PM ? Malick Long ? Pathologist: ? Joaquín Holcomb MD ? Specimen: ?Breast, left ? 2 10:27 AM [facility] FINAL DIAGNOSIS Breast, left, mass, ultrasound-guided core needle biopsy: - Breast tissue with dense mixed chronic inflammation with prominent foamy histiocytes, hemosiderin laden macrophages, multinucleated giant cells, stromal fibrosis, and fat necrosis, consistent with prior surgical site changes. - Mild sclerosing adenosis. 2 10:27 AM [facility] S DESCRIPTION Received in one container labeled Jolene Cedillo and left breast mass are 9 yellow-ferguson fibrofatty tissue cores ranging from 0.6 to 1.8 cm in length and each measuring 0.4 cm in diameter. All are submitted in cassettes A1 through A3. [facility] 2 10:27 AM [facility] MICROSCOPIC DESCRIPTION The slides are labeled [id number] and Jolene Cedillo. The left breast mass [...] malignancy are not identified. 2 10:27 AM [facility] INTRAOPERATIVE CONSULTATION The slides are labeled [id number] and Jolene Cedillo. 2 10:27 AM [facility] OPERATIVE PROCEDURE left breast ultrasound guided core needle biopsy with clip placement 2 10:27 AM [facility] CLINICAL INFORMATION Left Breast Mass, 9 10G core biopsies TISSUE OBTAINED @ 1145 IN FORMALIN @ 1150 left 11:00, 2cm complex cystic mass BIRADS 4 rule out complex seroma, complicated cyst, intracystic malignancy No Dx found. 2 10:27 AM [facility] COMMENT Special stain and/or immunohistochemical results are interpreted with controls that demonstrate appropriate staining reactions. Note on use of immunocytochemistry reagents: This test was developed and its performance characteristics determined by [facility], Department of Laboratory Medicine. It has [...] part or completely in the following laboratories: [facility], CLIA #[id number] [address] [place] [address] [facility], [place] #[id number] [address] [place] [address] [facility], CLIA #[id number] [address] [place] [address] This report was created with the [employer] voice-activated dictation system. Inherent to this system is the possibility of syntax, grammar, punctuation and other errors that could impact the interpretation of the report. If there are interpretative questions about aspects of this report, please contact the performing pathologist. 10:27 AM CDT [facility] Tissue LEFT BREAST STRUCTURE / Unknown Collection / Unknown 02/14/2022 12:33 PM CDT 02/14/2022 2:59 PM CDT Comment:Left Breast Mass, 9 10G core biopsiesTISSUE OBTAINED @ 1145 IN FORMALIN @ 1150 Kenna Fernandes DO PATHOLOGY/CYTOLO GY ORDERABLES [id number] [address] [place] [address] * MAMMO BREAST US BIOPSY LEFT (02/14/2022 [...] Site documented in this encounter Care Teams After School Program Director Relationship Specialty Start Date End Date Francisco Long MD PCP - General Internal Medicine 06/27/18 documented as of this encounter
--- OUTSIDE RECORDS SUMMARY | 2024-11-16 15:28 | XMS_ITS | Encounter Summary ---
Author Organization [facility] Address [address] Worrell: [place] [address] Care Team Providers Care Well Digger Name Role Phone Francicso Long MD Primary Care Provider Unavailabl e [...] COVID-19? No / Unsure 11/30/2020 11:53 AM POWDER SHOVELER documented as of this encounter Plan of Treatment Upcoming Encounters Date Type Department Care Team (Late st Contact Info) Description 03/19/2025 10:45 AM CDT Appointment [facility] [address] [place] [address] Caron Mohan MD [address] [place] [address] 03/19/2025 11:30 AM CDT Office Visit [facility] Oncology and Hematology [address] [place] [phone] Caron Mohan MD [address] [place] [address] [place] [address] [place] [address] documented as of this encounter Visit Diagnoses Not on filedocumented in this encounter Care Teams Well Digger Relationship Specialty Start Date End Date Francisco Long MD PCP - General Internal Medicine 06/27/18 documented as of this encounter
--- OUTSIDE RECORDS SUMMARY | 2024-11-16 15:28 | XMS_ITS | Encounter Summary ---
Author Organization [facility] Address [address] Worrell: [place] [address] Care Team Providers Care Scheduling Administrator Name Role Phone Francisco Long MD Primary [...] CDT Appointment [facility] [address] [place] [address] Caron Mohan MD [address] [place] [id number] 03/19/2025 11:30 AM CDT Office Visit [facility] Oncology and Hematology [address] [place] [phone] Caron Mohan MD [address] [place] [address] [place] [address] [place] [address] documented as of this encounter Visit Diagnoses Not on filedocumented in this encounter Care Teams Scheduling Administrator Relationship Specialty Start Date End Date Francisco Long MD PCP - General Internal Medicine 06/27/18 documented as of this encounter
--- OUTSIDE RECORDS SUMMARY | 2024-11-16 15:28 | XMS_ITS | Encounter Summary ---
Author Organization [facility] Address [address] [place] [address] Care Team Providers Care Passenger Car Conductor Name Role Phone Francisco Long MD Primary Care Provider Unavailabl e Reason for Visit * Reason Onset Date Comments Results 02/16/2022 Encounter Details Date Type Department Care Team (Late st Contact Info) Description 02/16/2022 Telephone [facility] ONCOLOGY AND HEMATOLOGY-[place] [address] [facility] [address] [place] [address] Caron Mohan MD [address] [place], [place] [phone] Results Social History Tobacco Use Types Packs/Day [...] [facility] [address] [place] [phone] Caron Mohan MD [address] [place], [place] [phone] 03/19/2025 11:30 AM CDT Office Visit [facility] Oncology and Hematology [address] [place] [address] Caron Mohan MD [address] [facility] [address] [place] [address] [place] [address] [place] [address] documented as of this encounter Visit Diagnoses Not on filedocumented in this encounter Care Teams Passenger Car Conductor Relationship Specialty Start Date End Date Francisco Long MD PCP - General Internal Medicine 06/27/18 documented as of this encounter
--- OUTSIDE RECORDS SUMMARY | 2024-11-16 15:28 | XMS_ITS | Encounter Summary ---
Author Organization [facility] Address [address] [place] [address] Care Team Providers Care Salesperson Florist Supplies Name Role Phone Francisco Long MD Primary Care Provider Unavailabl e Reason for Visit * Reason Onset Date Comments Results 05/15/2019 Encounter Details Date Type Department Care Team (Late st Contact Info) Description 05/15/[address] [facility] ONCOLOGY AND HEMATOLOGY-JUST[place] LONG [address] [facility] [address] [place] [address] Caron Mohan MD [address] [place] [address] Results Social History Tobacco Use [...] [facility] [address] [place] [phone] Caron Mohan MD [address] [place], [place] [phone] 03/19/2025 11:30 AM CDT Office Visit [facility] Oncology and Hematology [address] [place] [address] Caron Mohan MD [address] [place], [place] [phone] [place] [address] [place] [address] documented as of this encounter Visit Diagnoses Diagnosis Vitamin D deficiency- Primary Unspecified vitamin D deficiency documented in this encounter Care Teams Salesperson Florist Supplies Relationship Specialty Start Date End Date Francisco Long MD PCP - General Internal Medicine 06/27/18 documented as of this encounter
--- OUTSIDE RECORDS SUMMARY | 2024-11-16 15:28 | XMS_ITS | Encounter Summary ---
Author Organization [facility] Address [address] [place] [address] Care Team Providers Care Museum Exhibit Technician Name Role Phone Francisco Long MD Primary Care Provider Unavailabl e Encounter Details Date Type Department Care Team (Late st Contact Info) Description 02/06/2022 Chart Note [facility] [address] [place] [address] Enma Verdugo RN Social History [...] Verdugo RN BSN CBCN Breast Health Nurse Navigator-[facility] documented in this encounter Plan of Treatment Upcoming Encounters Date Type Department Care Team (Late st Contact Info) Description 03/19/2025 10:45 AM CDT Appointment [facility] [address] [place] [phone] Caron Mohan MD [address] [place], [place] [id number] 03/19/2025 11:30 AM CDT Office Visit [facility] Oncology and Hematology [address] [place] [address] Caron Mohan MD [address] [place], [place] [phone] [place] [address] [place] [address] documented as of this encounter Visit Diagnoses Not on filedocumented in this encounter Care Teams Museum Exhibit Technician Relationship Specialty Start Date End Date Francisco Long MD PCP - General Internal Medicine 06/27/18 documented as of this encounter
--- OUTSIDE RECORDS SUMMARY | 2024-11-16 15:28 | XMS_ITS | Encounter Summary ---
Author Organization [facility] Address [address] [place] [address] Care Team Providers Care Transportation Services Representative Name Role Phone Francisco Long MD Primary Care Provider Unavailabl e Reason for Visit * Reason Comments Breast Problem Biopsy results Encounter Details Date Type Department Care Team (Late Contact Info) Description 02/16/[address] [facility] Oncology Patient Navigation [address] [place] [address] Mary Myrick, RN Breast Problem (Biopsy results) [...] Info) Description 03/19/2025 10:45 AM CDT Appointment [facility] [address] [place] [phone] Caron Mohan MD [address] [facility] [address] [place] [address] 03/19/2025 11:30 AM CDT Office Visit [facility] Oncology and Hematology [address] [place] [address] Caron Mohan MD [address] [place] [address] [place] [address] [place] [address] documented as of this encounter Visit Diagnoses Not on filedocumented in this encounter Care Teams Transportation Services Representative Relationship Specialty Start Date End Date Francisco Long MD PCP - General Internal Medicine 06/27/18 documented as of this encounter
--- OUTSIDE RECORDS SUMMARY | 2024-11-16 15:28 | XMS_ITS | Encounter Summary ---
Author Organization [facility] Address [address] [place] [address] Care Team Providers Care Bat Person Name Role Phone Francisco Long MD Primary Care Provider Unavailabl e Reason for Visit * Reason Onset Date Comments Follow Up 01/28/2020 Encounter Details Date Type Department Care Team (Late st Contact Info) Description 01/28/2020 Telephone [facility] ONCOLOGY AND HEMATOLOGY-JUST[place] LONG [address] [facility] [address] [place] [address] Caron Mohan MD 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 [place] [address] 03/19/2025 11:30 AM CDT Office Visit [facility] Oncology and Hematology [address] [place] [address] Caron Mohan MD [address] [place] [address] [place] [address] [facility] [address] [place] [address] documented as of this encounter Visit Diagnoses Not on filedocumented in this encounter Care Teams Bat Person Relationship Specialty Start Date End Date Francisco Long MD PCP - General Internal Medicine 06/27/18 documented as of this encounter
--- OUTSIDE RECORDS SUMMARY | 2024-11-16 15:28 | XMS_ITS | Encounter Summary ---
Author Organization [facility] Address [address] [place] [address] Care Team Providers Care Grain Merchandiser Name Role Phone Francisco Long MD Primary Care Provider Unavailabl e Reason for Referral * Radiology Services (Routine) - Closed Specialty Diagnoses / Procedures Referred By Halima garcia Referred To Contact Diagnoses Malignant neoplasm of upper-inner quadrant of left breast in female, estrogen receptor positive Asymptomatic menopausal state Procedures MAMMO POST US/STEREO GUIDED PROCEDURE Caron Lopez MD [address] [place] [address] Referral ID Status Reason Start Date Expiration Date Visits Re quested Visits Authorized [id number] Closed 02/06/2022 05/07/2022 1 1 Reason for Visit * Radiology Services (Routine) - Closed Specialty Diagnoses / Procedures Referred By Halima garcia Referred To Contact Diagnoses Malignant neoplasm of upper-inner quadrant of left breast in female, estrogen receptor positive Asymptomatic menopausal state Procedures MAMMO POST US/STEREO GUIDED PROCEDURE Caron Lopez MD [address] [place] [address] Referral ID Status Reason Start Date Expiration Date Visits Re quested Visits Authorized [id number] Closed 02/06/2022 05/07/2022 1 1 Encounter Details Date Type Department Care Team (Latest Contact Info) Description 02/14/2022 10:05 AM CDT - 02/14/2022 11:59 PM CDT Hospital Encounter [facility] [address] [place] [address] Caron Mohan MD [address] [place] [address] Discharge Disposition: Home or Self [...] 10:45 AM CDT Appointment [facility] [address] [place] [address] Caron Mohan MD [address] [place], [place] [id number] 03/19/2025 11:30 AM CDT Office Visit [facility] Oncology and Hematology [address] [address] [facility] [address] [place] [address] Caron Mohan MD [address] [place], [place] [id number] [place] [address] [facility] [address] [place] [address] documented as of this encounter [...] (natural) documented in this encounter Care Teams Grain Merchandiser Relationship Specialty Start Date End Date Francisco Long MD PCP - General Internal Medicine 06/27/18 documented as of this encounter
--- OUTSIDE RECORDS SUMMARY | 2024-11-16 15:28 | XMS_ITS | Encounter Summary ---
Author Organization [facility] Address [address] [place]: [place] [address] Care Team Providers Care Security Assurance Analyst Name Role Phone Francisco Long MD Primary Care Provider Unavailabl e Encounter Details Date Type Department Care Team (Latest Contact Info) Description 02/06/2022 Travel Social History Tobacco Use Types Packs/Day [...] PM CDT documented as of this encounter Plan of Treatment Upcoming Encounters Date Type Department Care Team (Late st Contact Info) Description 03/19/2025 10:45 AM CDT Appointment [facility] [address] [place] [address] Caron Mohan MD [address] [place] [address] 03/19/2025 11:30 AM CDT Office Visit [facility] Oncology and Hematology [address] [place] [address] Caron Mohan MD [address] [place] [address] [place] [address] [place] [address] documented as of this encounter Visit Diagnoses Not on filedocumented in this encounter Care Teams Security Assurance Analyst Relationship Specialty Start Date End Date Francisco Long MD PCP - General Internal Medicine 06/27/18 documented as of this encounter
--- OUTSIDE RECORDS SUMMARY | 2024-11-16 15:28 | XMS_ITS | Encounter Summary ---
Author Organization [facility] Address [address] [place] [address] Care Team Providers Care Carton And Can Supply Supervisor Name Role Phone Francisco Long MD [...] DIGITAL BREAST [place]OMOS[place] [address] [place] [address] Referral ID Status Reason Start Date Expiration Date Visits Re quested Visits Authorized [id number] Closed 05/14/2019 06/13/2020 1 1 CTOR OF PHYSIOTHERAPY SERVICES Reason for Visit * Radiology Services (Routine) - Closed Specialty Diagnoses / Procedures Referred By Halima garcia Referred To Contact Diagnoses Malignant neoplasm of upper-inner quadrant of left breast in female, estrogen receptor positive Procedures MAMMO DIAG BILAT 3D CATHY W OR WO CAD CHG DIAGNOSTIC MAMMOGRAPHY COMPUTER-AIDED DETCJ BI CHG DIGITAL BREAST T[place] [address] [place] [address] Referral ID Status Reason Start Date Expiration Date Visits Re quested Visits Authorized [id number] Closed 05/14/2019 06/13/2020 1 1 Encounter Details Date Type Department Care Team (Latest Contact Info) Description 11/12/2019 8:45 AM DIRECTOR OF PHYSIOTHERAPY SERVICES - 11/12/2019 11:59 PM DIRECTOR OF PHYSIOTHERAPY SERVICES Hospital Encounter [facility] [address] [place] [address] [place] [address] [place] [address] Discharge Disposition: Home or Self Care [...] 10:45 AM CDT Appointment [facility] [address] [place] [address] Caron Mohan MD [address] [place] [address] 03/19/2025 11:30 AM CDT Office Visit [facility] Oncology and Hematology [address] [place] [address] Caron Mohan MD [address] [place] [address] [place] [address] [place] [address] documented as of this encounter Procedures Procedure Name Priority Date/Time Associated Diagnosis Comments MAMMO DIAG BILAT 3D CATHY W OR WO CAD Routine 11/12/2019 9:26 AM DIRECTOR OF PHYSIOTHERAPY SERVICES Malignant neoplasm of upper-inner quadrant of left breast in female, estrogen receptor positive documented in this encounter Results * MAMMO DIAG BILAT 3D CATHY W OR WO CAD (11/12/2019 9:26 AM DIRECTOR OF PHYSIOTHERAPY SERVICES) Anatomical Region Laterality Modality Breast Bilateral Mammography 11/12/2019 9:26 AM DIRECTOR OF PHYSIOTHERAPY SERVICES Impressions 11/13/2019 3:59 PM DIRECTOR OF PHYSIOTHERAPY SERVICES IMPRESSION: No suspicious findings to suggest malignancy in either breast. Annual mammography is recommended. OVERALL FINAL ASSESSMENT: ??BI-RADS CATEGORY 2: Benign findings Narrative 11/13/2019 3:59 PM DIRECTOR OF PHYSIOTHERAPY SERVICES EXAM: BILATERAL DIAGNOSTIC DIGITAL MAMMOGRAM WITH 3D TOMOSYNTHESIS AND CAD DATE: 11/12/2019 9:26 AM HISTORY: Personal history of breast cancer with prior left conservation therapy. DICTATION LOCATION: [facility] [place] COMPARISON: 05/14/2019 and older. TECHNIQUE: Mediolateral oblique, [...] positive documented in this encounter Care Teams Carton And Can Supply Supervisor Relationship Specialty Start Date End Date Francisco Long MD PCP - General Internal Medicine 06/27/18 documented as of this encounter
--- OUTSIDE RECORDS SUMMARY | 2024-11-16 15:28 | XMS_ITS | Encounter Summary ---
Author Organization [facility] Address [address] [place] [address] Care Team Providers Care Car Porter Name Role Phone Francisco Long MD Primary Care Provider Unavailabl e Reason for Visit * Reason Comments Follow Up 6 months Encounter Details Date Type Department Care Team (Late st Contact Info) Description 05/10/2020 10:15 AM CDT Office Visit [facility] ONCOLOGY AND HEMATOLOGY-[place] [address] [facility] [address] [place] [address] Caron Mohan MD [address] [place], [place] [phone] Malignant neoplasm of upper-inner quadrant of left [...] Mohan MD - 05/10/2020 10:22 AM CDT [facility] Oncology and Hematology Date of Service: 05/10/2020 [...] ??? 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 [place] BX/REMV,LYMPH NODE,DEEP AXILL Left 11/22/2018 LEFT AXILLARY SENTINEL LYMPH NODE BIOPSY WITH NUC MED AT 7:45 AM performed by Ita Vazquez MD at [facility] OR ??? [place] LAP,LYMPH NODE BX N/A 07/09/2018 PELVIC LYMPH NODE STAGING DAVINCI SI performed by Micki Cadena MD at [facility] OR [facility] ??? [place] LAP,RMV ADNEXAL STRUCTURE Bilateral 07/09/2018 SALPINGO-OOPHORECTOMY DAVINCI SI performed by Micki Cadena MD at [facility] OR [facility] ??? [place] LAPAROSCOPY W TOT HYSTERECT UTERUS 250 GRAM OR LESS N/A 07/09/2018 HYSTERECTOMY TOTAL DAVINCI SI performed by Micki Cadena MD at [facility] ??? [place] MASTECTOMY, PARTIAL Left 11/22/2018 LEFT BREAST LUMPECTOMY WITH NLOC @ 8:30 AM performed by Ita Vazquez MD at [facility] OR Social History Socioeconomic History ??? Marital [...] file Gets together: Not on file Attends anabaptism service: Not on file Active member of [...] or rashes. Psych: No depression or anxiety. 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 Breasts: see [...] carcinoma in one of two lymph nodes ([id number]). ?? B. Breast, left, lumpectomy: - Invasive ductal carcinoma, with the following features: 1. Size: 1.3 cm. 2. Donnie score: 6/9. 3. Margins: Invasive carcinoma 3 mm from the posterior margin. 4. Lymphvascular invasion: Not definitively identified. 5. Stage: pT1c snN1mi. 6. Biomarkers: HER2 1+ (ER and [place] positive performed previously on [id number]). - Radial scar. - Intraductal papilloma (0.1 [...] with prior left conservation therapy. DICTATION LOCATION: [facility] COMPARISON: 05/14/2019 and older. TECHNIQUE: Mediolateral oblique, [...] Recommendation: Annual mammography is recommended. DICTATION LOCATION: [facility] ASSESSMENT and PLAN Ms. Cedillo is a 74 y.o. woman with [id number] breast cancer, ER+/KY+/HER2-, NS 6. She has had lumpectomy. Dr. John Ag in [place] has completed her radiation. OncotypeDX RS=7, 11% recurrence, no benefit to chemo. Since her tumor is strongly ER/[place] positive, I have recommended hormonal Rx with [...] Info) Description 03/19/2025 10:45 AM CDT Appointment [facility] [address] [place] [address] Caron Mohan MD [address] [place] [address] 03/19/2025 11:30 AM CDT Office Visit [facility] Oncology and Hematology [address] [place] [address] Caron Mohan MD [address] [place] [address] [place] [address] [place] [address] documented as of this encounter [...] embolism documented in this encounter Care Teams Car Porter Relationship Specialty Start Date End Date Francisco Long MD PCP - General Internal Medicine 06/27/18 documented as of this encounter
--- OUTSIDE RECORDS SUMMARY | 2024-11-16 15:28 | XMS_ITS | Encounter Summary ---
Author Organization [facility] Address [address] [place] [address] Care Team Providers Care Food And Beverage Assistant Name Role Phone Francisco Long MD Primary Care Provider Unavailabl e Reason for Referral * Radiology Services (Routine) - Closed Specialty Diagnoses / Procedures Referred By Halima garcia Referred To Contact Diagnoses Malignant neoplasm of upper-inner quadrant of left breast in female, estrogen receptor positive Procedures MAMMO BREAST US LEFT LTD Caron Mohan MD [address] [place] [address] Referral ID Status Reason Start Date Expiration Date Visits Re quested Visits Authorized [id number] Closed 02/06/2022 03/09/2023 1 1 Reason for Visit * Radiology Services (Routine) - Closed Specialty Diagnoses / Procedures Referred By Halima garcia Referred To Contact Diagnoses Malignant neoplasm of upper-inner quadrant of left breast in female, estrogen receptor positive Procedures MAMMO BREAST US LEFT LTD Caron Mohan MD [address] [place] [address] Referral ID Status Reason Start Date Expiration Date Visits Re quested Visits Authorized [id number] Closed 02/06/2022 03/09/2023 1 1 Encounter Details Date Type Department Care Team (Latest Contact Info) Description 02/06/2022 1:58 PM CDT - 02/06/2022 11:59 PM CDT Hospital Encounter [facility] [address] [address] [place] [address] Caron Mohan MD [address] [place] [address] Discharge Disposition: Home or Self [...] Description 03/19/2025 10:45 AM CDT Appointment [facility] [address] [place] [address] Caron Mohan MD [address] [place] [address] 03/19/2025 11:30 AM CDT Office Visit [facility] Oncology and Hematology [address] [place] [address] Caron Mohan MD [address] [place], [place] [id number] [place] [address] [facility] [address] [place] [address] documented as of this encounter [...] ULTRASOUND DATE: 02/06/2022 1:44 PM DICTATION LOCATION: [facility] INDICATION: Yearly exam, history of left-sided breast [...] documented in this encounter Care Teams Food And Beverage Assistant Relationship Specialty Start Date End Date Francisco Long MD PCP - General Internal Medicine 06/27/18 documented as of this encounter
--- OUTSIDE RECORDS SUMMARY | 2024-11-16 15:28 | XMS_ITS | Encounter Summary ---
Author Organization [facility] Address [address] [place] [address] Care Team Providers Care Executive Recruiter Name Role Phone Francisco Long MD [...] Mohan MD [address] [place] [address] Referral ID Status Reason Start Date Expiration Date Visits Re quested Visits Authorized [id number] Closed 08/09/2022 09/09/2023 1 1 Reason for Visit * Reason Comments Malignant neoplasm of upper-inner quadra nt of left breast i Encounter Details Date Type Department Care Team (Late st Contact Info) Description 08/09/2022 10:45 AM CDT Office Visit [facility] ONCOLOGY AND HEMATOLOGY-[place] [address] [facility] [address] [place] [address] Caron Mohan MD [address] [place], [place] [phone] Malignant neoplasm of upper-inner quadrant of left [...] Mohan MD - 08/09/2022 11:07 AM CDT [facility] Oncology and Hematology Date of Service: 08/09/2022 [...] after knee surgery. DEXA [address] [facility] but unable to access results. INTERVAL [...] pT1c. - Biomarker results: ER 8/8 (positive), MT 8/8 (positive), Her2 IHC 1+ (negative). - Low to intermediate grade ductal carcinoma in situ, minute focus, with associated calcifications. FINAL DIAGNOSIS A. 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 B. Breast, left, lumpectomy: - Invasive ductal carcinoma, with the following features: 1. Size: 1.3 cm. 2. Donnie score: 6/9. 3. Margins: Invasive carcinoma 3 mm from the posterior margin. 4. Lymphvascular invasion: Not definitively identified. 5. Stage: pT1c snN1mi. 6. Biomarkers: HER2 1+ (ER and MT positive performed previously on [id number]). - Radial scar. - Intraductal papilloma (0.1 [...] Cedillo is a 76 y.o. woman with [id number] breast cancer, ER+/MT+/HER2-, NS 6. She has had lumpectomy. Dr. John Ag in [place] has completed her radiation. OncotypeDX RS=7, 11% recurrence, no benefit to chemo. Since her tumor is strongly ER/MT positive, I have recommended hormonal Rx with oral aromatase inhibitor. She is tolerating this well. Started January 2019. Bone density checked Jun 2021, normal - in [place]. Vitamin D, exercise reviewed. Liudmila January 2022 led to biopsy, neg RTC 6 months with [facility] TOBACCO COUNSELING She is not a [...] Description 03/19/2025 10:45 AM CDT Appointment [facility] [address] [place] [address] Caron Mohan MD [address] [place] [id number] 03/19/2025 11:30 AM CDT Office Visit [facility] Oncology and Hematology [address] [place] [address] Caron Mohan MD [address] [place] [address] [place] [address] [facility] [address] [place] [address] documented as of this encounter [...] diagnostic mammogram in one year. DICTATION LOCATION: [facility] Caron Mohan MD MAMMO ORDERABLES documented in [...] positive documented in this encounter Care Teams Executive Recruiter Relationship Specialty Start Date End Date Francisco Long MD PCP - General Internal Medicine 06/27/18 documented as of this encounter
--- OUTSIDE RECORDS SUMMARY | 2024-11-16 15:28 | XMS_ITS | Encounter Summary ---
Author Organization [facility] Address [address] [place]enn: [place] [address] Care Team Providers Care Plasterer Spot Name Role Phone Francisco Long MD Primary [...] COVID-19? No / Unsure 11/01/2020 2:31 PM FINISHING TECHNICIAN documented as of this encounter Plan of Treatment Upcoming Encounters Date Type Department Care Team (Late st Contact Info) Description 03/19/2025 10:45 AM CDT Appointment [facility] [address] [place] [address] Caron Mohan MD [address] [place] [address] 03/19/2025 11:30 AM CDT Office Visit [facility] Oncology and Hematology [address] [place] [address] Caron Mohan MD [address] [place] [address] [place] [address] [place] [address] documented as of this encounter Visit Diagnoses Not on filedocumented in this encounter Care Teams Plasterer Spot Relationship Specialty Start Date End Date Francisco Long MD PCP - General Internal Medicine 06/27/18 documented as of this encounter
--- OUTSIDE RECORDS SUMMARY | 2024-11-16 15:28 | XMS_ITS | Encounter Summary ---
Author Organization [facility] Address [address] [place] [address] Care Team Providers Care Slip Filler Name Role Phone Francisco Long MD Primary [...] DETCJ BI CHG DIGITAL BREAST TOMOSYNTHESIS BILATERAL Carno Mohan MD [address] [place] [address] Referral ID Status Reason Start Date Expiration Date Visits Re quested Visits Authorized [id number] Closed 06/08/2021 07/09/2022 1 1 * Radiology Services (Routine) - Closed Specialty Diagnoses / Procedures Referred By Halima garcia Referred To Contact Diagnoses Malignant neoplasm of upper-inner quadrant of left breast in female, estrogen receptor positive Asymptomatic menopausal state Procedures XR DEXA BONE DENSITY AXIAL 1 OR MORE SITES Caron Mohan MD [address] [facility] [place] [address] [facility] [address] Referral ID Status Reason Start Date Expiration Date Visits Re quested Visits Authorized [id number] Closed 06/08/2021 07/09/2022 1 1 Reason for Visit * Reason Comments Follow Up 6 Months Encounter Details Date Type Department Care Team (Late st Contact Info) Description 06/08/2021 10:30 AM CDT Office Visit [facility] ONCOLOGY AND HEMATOLOGY-JUSTIN[place]ABETH LONG [address] [place] [address] Caron Mohan MD [address] [place] [address] Malignant neoplasm of upper-inner quadrant [...] Mohan MD - 06/08/2021 10:54 AM CDT [facility] Oncology and Hematology Date of Service: 06/08/2021 [...] clot after knee surgery. DEXA 2017 at [facility] but unable to access results. [...] carcinoma in one of two lymph nodes ([id number]). ?? B. Breast, left, lumpectomy: - Invasive ductal carcinoma, with the following features: 1. Size: 1.3 cm. 2. Donnie score: 6/9. 3. Margins: Invasive carcinoma 3 mm from the posterior margin. 4. Lymphvascular invasion: Not definitively identified. 5. Stage: pT1c snN1mi. 6. Biomarkers: HER2 1+ (ER and [place] positive performed previously on [id number]). - Radial scar. - Intraductal papilloma (0.1 [...] Benign breast tissue, negative for carcinoma. [facility] neg Nov 2020 ASSESSMENT and PLAN Ms. Cedillo is a 75 y.o. woman with [id number] breast cancer, ER+/AL+/HER2-, NS 6. She has had lumpectomy. Dr. John Ag in [place] has completed her radiation. OncotypeDX RS=7, 11% recurrence, no benefit to chemo. Since her tumor is strongly ER/AL positive, I have recommended hormonal Rx with oral aromatase inhibitor. She is tolerating this well. Started January 2019. Bone density checked February 2019, normal - needs recheck - will do this in [place]. Vitamin D, exercise reviewed. RTC 6 months with [facility] OTHER ISSUES: H/o endometrial cancer - [...] AM CDT Appointment [facility] [address] [place] [phone] Caron Mohan MD [address] [place], [place] [id number] 03/19/2025 11:30 AM CDT Office Visit [facility] Oncology and Hematology [address] [place] [address] Caron Mohan MD [address] [place] [address] [place] [address] [facility] [address] [place] [address] Scheduled Orders Name Type Priority [...] positive documented in this encounter Care Teams Slip Filler Relationship Specialty Start Date End Date Francisco Long MD PCP - General Internal Medicine 06/27/18 documented as of this encounter
--- OUTSIDE RECORDS SUMMARY | 2024-11-16 15:28 | XMS_ITS | Encounter Summary ---
Author Organization [facility] Address [address] [place] [address] Care Team Providers Care Irrigation Flume Layer Name Role Phone Francisco Long MD Primary Care Provider Unavailabl e Reason for Visit * Reason Comments Follow Up 6 months w/mmg befor e Encounter Details Date Type Department Care Team (Late st Contact Info) Description 11/12/2019 9:45 AM TACKER OFF Office Visit [facility] ON[facility] [address] [facility] [address] [place] [address] Caron Mohan MD [address] [place] [address] Malignant neoplasm of upper-inner quadrant [...] Comments Blood Pressure 140/80 11/12/2019 10:06 AM TACKER OFF Pulse 90 11/12/2019 10:06 AM TACKER OFF Temperature 36.7 ??C (98 ??F) 11/12/2019 10:06 AM TACKER OFF Respiratory Rate - - Oxygen Saturation 94% 11/12/2019 10:06 AM TACKER OFF Inhaled Oxygen Concentration - - Weight 86.2 kg (190 lb 0.6 oz) 11/12/2019 10:06 AM TACKER OFF Height 170.2 cm (5' 7 ) 11/12/2019 10:06 AM TACKER OFF Body Mass Index 29.76 11/12/2019 10:06 AM TACKER OFF documented in this encounter Progress Notes * Caron Mohan MD - 11/12/2019 10:23 AM CST [facility] Oncology and Hematology Date of Service: [...] clot after knee surgery. DEXA 2017 at [facility] but unable to access results. INTERVAL [...] [facility] CC OR ??? RI LAP,LYMPH NODE BX N/A 07/09/2018 PELVIC LYMPH NODE STAGING DAVINCI SI performed by Micki Cadena MD at [facility] ??? RI LAP,RMV ADNEXAL STRUCTURE Bilateral 07/09/2018 SALPINGO-OOPHORECTOMY DAVINCI SI performed by Micki Cadena MD at [facility] ??? RI LAPAROSCOPY W TOT HYSTERECT UTERUS 250 GRAM OR LESS N/A 07/09/2018 HYSTERECTOMY TOTAL DAVINCI SI performed by Micki Cadena MD at [facility] ??? RI MASTECTOMY, PARTIAL Left 11/22/2018 LEFT [...] or rashes. Psych: No depression or anxiety. 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 Breasts: see [...] following features: 1. Size: 12 mm. 2. Salem score: 6/9. 3. Lymphvascular invasion: Not identified. 4. Stage: pT1c. - Biomarker results: ER 8/8 (positive), RI 8/8 (positive), Her2 IHC 1+ (negative). - Low to intermediate grade ductal carcinoma in situ, minute focus, with associated calcifications. FINAL DIAGNOSIS A. 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 ?? B. Breast, left, lumpectomy: - Invasive ductal carcinoma, with the following features: 1. Size: 1.3 cm. 2. Salem score: 6/9. 3. Margins: Invasive carcinoma 3 mm from the posterior margin. 4. Lymphvascular invasion: Not definitively identified. 5. Stage: pT1c snN1mi. 6. Biomarkers: HER2 1+ (ER and RI positive performed previously on [id number]). - Radial scar. - Intraductal papilloma (0.1 [...] with prior left conservation therapy. [facility] COMPARISON: 05/14/2019 and older. TECHNIQUE: Mediolateral oblique, [...] Recommendation: Annual mammography is recommended. DICTATION LOCATION: [facility] ASSESSMENT and PLAN Ms. Cedillo is a 73 y.o. woman with [id number] breast cancer, ER+/RI+/HER2-, NS 6. Since she has had lumpectomy done, she will need adjuvant XRT. Dr. John Ag in [place] has completed her radiation. OncotypeDX RS=7, 11% recurrence, no benefit to chemo. Since her tumor is strongly ER/RI positive, I have recommended hormonal Rx with [...] hesitate to contact me. Caron Mohan MD ER OFF documented in this encounter Plan of Treatment Upcoming Encounters Date Type Department Care Team (Late st Contact Info) Description 03/19/2025 10:45 AM CDT Appointment [facility] [address] [place] [phone] Caron Mohan MD [address] [facility] [address] [place] [id number] 03/19/2025 11:30 AM CDT Office Visit [facility] Oncology and Hematology [address] [place] [address] Caron Mohan MD [address] [facility] [place], [place] [phone] [place] [address] [facility] [address] [place] [address] documented as of this encounter Visit Diagnoses Diagnosis Malignant neoplasm of upper-inner quadrant of left breast in female, estrogen receptor positive- Primary 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 rheumatoid factor History of endometrial cancer Personal history of malignant neoplasm of other parts of uterus documented in this encounter Care Teams Irrigation Flume Layer Relationship Specialty Start Date End Date Francisco Long MD PCP - General Internal Medicine 06/27/18 documented as of this encounter
--- OUTSIDE RECORDS SUMMARY | 2024-11-16 15:28 | XMS_ITS | Encounter Summary ---
Author Organization [facility] Address [address] [place] [address] Care Team Providers Care Cooking Teacher Name Role Phone Francisco Long MD Primary Care Provider Unavailabl e Reason for Referral * Radiology Services (Routine) - Closed Specialty Diagnoses / Procedures Referred By Halima garcia Referred To Contact Diagnoses Malignant neoplasm of upper-inner quadrant of left breast in female, estrogen receptor positive Procedures M[place] [address] [place] [address] Referral ID Status Reason Start Date Expiration Date Visits Re quested Visits Authorized [id number] Closed 12/01/2020 01/01/2022 1 1 ALOMETRIC TRACER Reason for Visit * Radiology Services (Routine) - Closed Specialty Diagnoses / Procedures Referred By Halima garcia Referred To Contact Diagnoses Malignant neoplasm of upper-inner quadrant of left breast in female, estrogen receptor positive Procedures M[place] [address] [place] [address] Referral ID Status Reason Start Date Expiration Date Visits Re quested Visits Authorized [id number] Closed 12/01/2020 01/01/2022 1 1 Encounter Details Date Type Department Care Team (Latest Contact Info) Description 12/01/2020 10:53 AM CEPHALOMETRIC TRACER - 12/01/2020 11:59 PM CEPHALOMETRIC TRACER Hospital Encounter [facility] [address] [place] [address] [place] [address] [place] [address] Discharge Disposition: Home or Self Care [...] COVID-19? No / Unsure 12/01/2020 10:08 AM CEPHALOMETRIC TRACER documented as of this encounter Medications at [...] CDT Appointment [facility] [address] [place] [address] Caron Mohan MD [address] [place] [address] 03/19/2025 11:30 AM CDT Office Visit [facility] [address] [place] [address] Caron Mohan MD [address] [place] [address] [place] [address] [facility] [address] [place] [address] documented as of this encounter Procedures Procedure Name Priority Date/Time Associated Diagnosis Comments MAMMO BREAST US LEFT LTD Routine 12/01/2020 11:08 AM CEPHALOMETRIC TRACER Malignant neoplasm of upper-inner quadrant of left breast in female, estrogen receptor positive documented in this encounter Results * MAMMO BREAST US LEFT LTD (12/01/2020 11:08 AM CEPHALOMETRIC TRACER) Anatomical Region Laterality Modality Left Ultrasound 12/01/2020 11:0 8 AM CEPHALOMETRIC TRACER Impressions 12/01/2020 12:38 PM CEPHALOMETRIC TRACER IMPRESSION: No evidence of malignancy within either breast. RECOMMENDATION: Annual mammography is recommended. DICTATION LOCATION: ??Cindy Long Narrative 12/01/2020 12:38 PM CEPHALOMETRIC TRACER BILATERAL FULL-FIELD DIGITAL DIAGNOSTIC MAMMOGRAM WITH 3-D [...] RECOMMENDATION: Annual mammography is recommended. DICTATION LOCATION: [facility] Ita Vazquez MD MAMMO ORDERABLES documented in this encounter Visit Diagnoses Diagnosis Malignant neoplasm of upper-inner quadrant of left breast in female, estrogen receptor positive documented in this encounter Care Teams Cooking Teacher Relationship Specialty Start Date End Date Francisco Long MD PCP - General Internal Medicine 06/27/18 documented as of this encounter
--- OUTSIDE RECORDS SUMMARY | 2024-11-16 15:29 | XMS_ITS | Encounter Summary ---
Author Organization [facility] Address [address] [place] [address] Care Team Providers Care Acid Cutter Name Role Phone Francisco Long MD Primary Care Provider Unavailabl e Reason for Visit * Reason Onset Date Comments oncotype 01/07/2019 Encounter Details Date Type Department Care Team (Late st Contact Info) Description 01/07/2019 Patient Outreach [facility] ONCOLOGY AND HEMATOLOGY-[place] [address] [facility] [address] [place] [address] Caron Mohan MD [address] [place], [place] [phone] oncotype Social History Tobacco Use Types Packs/Day [...] To: TAO Hearn Heather Howard called from [facility]. She is requesting a copy of the patient's ONCO type results. Jolene is going to being XRT at [facility], (Dr Ag). Rayna's phone number is [phone]. Fax is [phone]. Thanks, Rosario done ATTENDANT documented in this encounter Plan of Treatment Upcoming Encounters Date Type Department Care Team (Late st Contact Info) Description 03/19/2025 10:45 AM CDT Appointment [facility] [address] [place] [address] Caron Mohan MD [address] [place] [address] 03/19/2025 11:30 AM CDT Office Visit [facility] Oncology and Hematology [address] [place] [address] Caron Mohan MD [address] [place] [address] [place] [address] [facility] [address] [place] [address] documented as of this encounter Visit Diagnoses Not on filedocumented in this encounter Care Teams Acid Cutter Relationship Specialty Start Date End Date Francisco Long MD PCP - General Internal Medicine 06/27/18 documented as of this encounter
--- OUTSIDE RECORDS SUMMARY | 2024-11-16 15:29 | XMS_ITS | Encounter Summary ---
Author Organization [facility] Address [address] [place] [address] Care Team Providers Care Pension Consultant Name Role Phone Francisco Long MD Primary Care Provider Unavailabl e Reason for Visit * Auth/Cert Specialty Diagnoses / Procedures Referred By Halima t Referred To Contact Diagnoses Invasive ductal carcinoma of breast, left Invasive ductal carcinoma of breast, left [C50.912] Procedures FL MASTECTOMY, PARTIAL FL BX/REMV,LYMPH NODE,DEEP AXILL FL INTRAOPERATIVE SENTINEL LYMPH NODE ID W DYE INJECTION CHG LYMPHATICS & LYMPH GLANDS IMAGING Left Breast Lumpectomy W/NLOC [place] [address] [place] [address] Referral ID Status Reason Start Date Expiration Date Visits Re quested Visits Authorized [id number] 10/02/2018 1 1 Encounter Details Date Type Department Care Team (Late st Contact Info) Description 11/22/2018 9:38 AM PAINTING WORKER Anesthesia Event [facility] [place] [address] [place] [address] [facility] [address] [place] [phone] Sharath Mills MD [address] [place] [address] Aubrie Goddard CRNA [address] [place] [address] Anesthesia Record Procedure Summary Procedure [...] MD 11/22/2018 12:59 PM Sharath Mills MD TING WORKER * Anesthesia Handoff - Aubrie Goddard CRNA [...] 10:59 AM) 11:03 AM Aubrie Goddard CRNA TING WORKER * Anesthesia Preprocedure Evaluation - Sharath Mills MD - 11/22/2018 9:12 AM CST Relevant Problems No relevant active problems Anesthesia Evaluation Anesthesia Plan ASA 2 General Intravenous induction Supraglottic airway maintenance NPO status > 8 hours Plan discussed with Nurse [employer]. Post-op Pain Control Plan to use IV or IM medication for post-op pain control. Plan for postoperative opioid use Smoking Compliance Patient did not smoke on day of surgery Pre-Anesthesia Evaluation - Long Form 11/22/2018 9:13 AM Name: Jolene Cedillo Age: 72 y.o. Sex: female CSN: [id number] Allergies Allergen Reactions ??? Atorvastatin Muscle Pain [...] of left breast in female, estrogen receptor atsibrbj21/06/2018 Overview Note: Stage: Clinical T1 N0 Date of diagnosis: 09/23/18 Diagnosis: LEFT IDC ER(+) FL(+) Her 2 (-) Surgeon: [facility] Surgery: Medical Oncologist: Chemotherapy: Radiation Oncologist: [...] ??? 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 FL LAP,LYMPH NODE BX N/A 07/09/2018 PELVIC LYMPH NODE STAGING DAVINCI SI performed by Micki Cadena MD at [facility] ??? FL LAP,RMV ADNEXAL STRUCTURE Bilateral 07/09/2018 SALPINGO-OOPHORECTOMY DAVINCI SI performed by Micki Cadena MD at [facility] OR [facility] ??? FL LAPAROSCOPY W TOT HYSTERECT UTERUS 250 GRAM OR LESS N/A 07/09/2018 HYSTERECTOMY TOTAL DAVINCI SI performed by Micki Cadena MD at [facility] Social History Substance Use Topics ??? [...] solicited and answered. Yes Sharath Mills MD TING WORKER documented in this encounter Plan of Treatment Upcoming Encounters Date Type Department Care Team (Late st Contact Info) Description 03/19/2025 10:[address] [facility] [address] [place] [address] Caron Mohan MD [address] [place] [address] 03/19/2025 11:30 AM CDT Office Visit [facility] Oncology and Hematology [address] [place] [address] Caron Mohan MD [address] [place] [address] [place] [address] [place] [address] documented as of this encounter Visit [...] Indication: Surgical prophylaxis Given 11/22/2018 9:50 AM PAINTING WORKER 2,000 mg dexamethasone (DECADRON) injection INTRA-PROCEDURE PRN, Starting on Sun11/22/18 at 0953, Until Sun11/22/18 at 1103, Routine, Anesthesia Intra-op Given 11/22/2018 9:53 AM PAINTING WORKER 8 mg fentaNYL PF (SUBLIMAZE) 50 mcg/mL injection INTRA-PROCEDURE PRN, Starting on Sun11/22/18 at 0938, Until Sun11/22/18 at 1103, Pain (See admin instructions), Routine, Anesthesia Intra-op Given 11/22/2018 10:41 AM PAINTING WORKER 25 mcg Given 11/22/2018 9:59 AM PAINTING WORKER 50 mcg Given 11/22/2018 9:38 AM PAINTING WORKER 50 mcg lactated Ringers solution IV, at 150 mL/hr, PRE-PROCEDURE CONTINUOUS, Starting on Sun11/22/18 at 0645, Until Sun11/22/18 at 1427, Routine, Pre-op Continue from Pre-Op 11/22/2018 9:38 AM PAINTING WORKER New Bag 11/22/2018 9:18 AM PAINTING WORKER 150 mL/hr lidocaine PF (XYLOCAINE MPF) 100 mg/5 mL (2 %) injection INTRA-PROCEDURE PRN, Starting on Sun11/22/18 at 0945, Until Sun11/22/18 at 1103, Routine, Anesthesia Intra-op Given 11/22/2018 9:45 AM PAINTING WORKER 60 mg midazolam (PF) (VERSED) injection INTRA-PROCEDURE PRN, Starting on Sun11/22/18 at 0938, Until Sun11/22/18 at 1103, Routine, Anesthesia Intra-op Given 11/22/2018 9:38 AM PAINTING WORKER 2 mg ondansetron (ZOFRAN) 4 mg/2 mL injection INTRA-PROCEDURE PRN, Starting on Sun11/22/18 at 1049, Until Sun11/22/18 at 1103, Nausea/Emesis, Routine, Anesthesia Intra-op Given 11/22/2018 10:49 AM PAINTING WORKER 4 mg propofol (DIPRIVAN) injection INTRA-PROCEDURE PRN, Starting on Sun11/22/18 at 0945, Until Sun11/22/18 at 1103, Anesthesia Intra-op Given 11/22/2018 9:45 AM PAINTING WORKER 200 mg documented in this encounter Care Teams Pension Consultant Relationship Specialty Start Date End Date Francisco Long MD PCP - General Internal Medicine 06/27/18 documented as of this encounter
--- OUTSIDE RECORDS SUMMARY | 2024-11-16 15:29 | XMS_ITS | Encounter Summary ---
Author Organization [facility] Address [address] [place] [address] Care Team Providers Care Show Host/Hostess Name Role Phone Francisco Long MD Primary Care Provider Unavailabl e Reason for Visit * Reason Onset Date Comments Results 02/12/2019 med orders 02/12/2019 Encounter Details Date Type Department Care Team (Late st Contact Info) Description 02/12/2019 Patient Outreach [facility] ONCOLOGY AND HEMATOLOGY-[place] [address] [facility] [address] [place] [address] Caron Mohan MD [address] [place] [address] Results; med orders Social History [...] Today Message Contents Caron Mohan MD P [facility] Nereida Med Onc Nurse ??02/10/19 .The patient [...] AM CDT Appointment [facility] [address] [place] [address] Caron Mohan MD [address] [place], [place] [phone] 03/19/2025 11:30 AM CDT Office Visit [facility] Oncology and Hematology [place] Long [address] [place] [address] Caron Mohan MD [address] [place], [place] [phone] [place] [address] [facility] [address] [place] [address] documented as of this encounter Visit Diagnoses Not on filedocumented in this encounter Care Teams Show Host/Hostess Relationship Specialty Start Date End Date Francisco Long MD PCP - General Internal Medicine 06/27/18 documented as of this encounter
--- OUTSIDE RECORDS SUMMARY | 2024-11-16 15:29 | XMS_ITS | Encounter Summary ---
Author Organization [facility] Address [address] [place] [address] Care Team Providers Care Fire Management Officer Name Role Phone Francisco Long MD Primary Care Provider Unavailabl e Encounter Details Date Type Department Care Team (Late Contact Info) Description 03/14/2019 Orders Only [facility] ONCOLOGY AND HEMATOLOGY-[place] [address] [place] [address] Caron Mohan MD [address] [facility] [address] [place] [address] Menopausal and perimenopausal disorder ; Malignant [...] 03/19/2025 10:45 AM CDT Appointment [facility] [address] [place] [address] Caron Mohan MD [address] [facility] [address] [place] [address] 03/19/2025 11:30 AM CDT Office Visit [facility] Oncology and Hematology [address] Long [address] [place] [address] Caron Mohan MD [address] [place] [address] [place] [address] [place] [address] documented as of this encounter [...] positive documented in this encounter Care Teams Fire Management Officer Relationship Specialty Start Date End Date Francisco Long MD PCP - General Internal Medicine 06/27/18 documented as of this encounter
--- OUTSIDE RECORDS SUMMARY | 2024-11-16 15:29 | XMS_ITS | Encounter Summary ---
Author Organization [facility] Address [address] [place] [address] Care Team Providers Care Tariff Expert Name Role Phone Francisco Long MD Primary Care Provider Unavailabl e Encounter Details Date Type Department Care Team (Late st Contact Info) Description 12/24/2018 Orders Only [facility] ONCOLOGY AND HEMATOLOGY-[facility] [address] [facility] [address] [place] [address] Caron Mohan MD [address] [place] [phone] Social History Tobacco Use Types Packs/Day Years [...] AM CDT Appointment [facility] [address] [address] [place] [address] Caron Mohan MD [address] [place] [address] 03/19/2025 11:30 AM CDT Office Visit [facility] Oncology and Hematology [address] [place] [address] Caron Mohan MD [address] [place] [address] [place] [address] [place] [address] documented as of this encounter Procedures Procedure Name Priority Date/Time Associated Diagnosis Comments MISCELLANEOUS LAB TEST Routine 12/23/2018 documented in this encounter Results * MISCELLANEOUS LAB TEST (12/23/2018) Caron Mohan MD [facility]MI[facility]Y [facility]ABLES [facility] documented in this encounter Visit Diagnoses Not on filedocumented in this encounter Care Teams Tariff Expert Relationship Specialty Start Date End Date Francisco Long MD PCP - General Internal Medicine 06/27/18 documented as of this encounter
--- OUTSIDE RECORDS SUMMARY | 2024-11-16 15:29 | XMS_ITS | Encounter Summary ---
Author Organization [facility] Address [address] [place] [address] Care Team Providers Care Pumping Station Supervisor Name Role Phone Francisco Long MD Primary Care Provider Unavailabl e Encounter Details Date Type Department Care Team (Late st Contact Info) Description 04/11/2019 Orders Only [facility] BREAST SURGERY - [place] C[facility]KS[facility] [address] [place] [address] Provider, Abstract NO ADDRESS ON [...] Appointment [facility] [address] [place] [address] Caron Mohan MD [address] [facility] [address] [place] [phone] 03/19/2025 11:30 AM CDT Office Visit [facility] Oncology and Hematology [address] [place] [address] Caron Mohan MD [address] [facility] [address] [place] [phone] [place] [address] [place] [phone] documented as of this encounter Procedures Procedure Name Priority Date/Time Associated Diagnosis Comments NM BONE DENSITY Routine 03/11/2019 documented in this encounter Results * NM BONE DENSITY (03/11/2019) Anatomical Region Laterality Modality Other Abstract Provider NM ORDERABLES documented in this encounter Visit Diagnoses Not on filedocumented in this encounter Care Teams Pumping Station Supervisor Relationship Specialty Start Date End Date Francisco Long MD PCP - General Internal Medicine 06/27/18 documented as of this encounter
--- OUTSIDE RECORDS SUMMARY | 2024-11-16 15:29 | XMS_ITS | Encounter Summary ---
Author Organization [facility] Address [address] [place] [address] Care Team Providers Care White Hat Hacker Name Role Phone Francisco Long MD Primary Care Provider Unavailabl e Reason for Visit * Reason Comments Establish Care breast cancer Encounter Details Date Type Department Care Team (Late st Contact Info) Description 12/11/2018 8:30 AM PRESS ASSISTANT Office Visit [facility] ONCOLOGY AND HEMATOLOGY-JUSTIN [place] [address] [facility] [address] [place] [address] Caron Mohan MD [address] [place], [place] [phone] Malignant neoplasm of upper-inner quadrant of left [...] Comments Blood Pressure 148/78 12/11/2018 8:31 AM PRESS ASSISTANT Pulse 90 12/11/2018 8:31 AM PRESS ASSISTANT Temperature 36.7 ??C (98 ??F) 12/11/2018 8:31 AM PRESS ASSISTANT Respiratory Rate - - Oxygen Saturation 95% 12/11/2018 8:31 AM PRESS ASSISTANT Inhaled Oxygen Concentration - - Weight 85.3 kg (188 lb) 12/11/2018 8:31 AM PRESS ASSISTANT Height 170.2 cm (5' 7 ) 12/11/2018 8:31 AM PRESS ASSISTANT Body Mass Index 29.44 12/11/2018 8:31 AM PRESS ASSISTANT documented in this encounter Progress Notes * Caron Mohan MD - 12/11/2018 8:38 AM CST [facility] Oncology and Hematology Date of [...] clot after knee surgery. DEXA 2017 at [facility] but unable to access results. Patient History [...] ??? 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 LA BX/REMV,LYMPH NODE,DEEP AXILL Left 11/22/2018 LEFT AXILLARY SENTINEL LYMPH NODE BIOPSY WITH NUC MED AT 7:45 AM performed by Ita Vazquez MD at [facility] CC OR ??? LA LAP,LYMPH NODE BX N/A 07/09/2018 PELVIC LYMPH NODE STAGING DAVINCI SI performed by Micki Cadena MD at [facility] OR [facility] ??? LA LAP,RMV ADNEXAL STRUCTURE Bilateral 07/09/2018 SALPINGO-OOPHORECTOMY DAVINCI SI performed by Micki Cadena MD at [facility] OR [facility] ??? LA LAPAROSCOPY W TOT HYSTERECT UTERUS 250 GRAM OR LESS N/A 07/09/2018 HYSTERECTOMY TOTAL DAVINCI SI performed by Micki Cadena MD at [facility] OR [facility] ??? LA MASTECTOMY, PARTIAL Left 11/22/2018 LEFT BREAST LUMPECTOMY WITH NLOC @ 8:30 AM performed by Ita Vazquez MD at [facility] CC OR Social History Social History ??? [...] or rashes. Psych: No depression or anxiety. oracle technical architect:No vaginal discharge or abnormal bleeding. Breasts: see [...] pT1c. - Biomarker results: ER 8/8 (positive), LA 8/8 (positive), Her2 IHC 1+ (negative). - Low to intermediate grade ductal carcinoma in situ, minute focus, with associated calcifications. Results for orders placed or performed during the hospital encounter of 11/22/18 PATHOLOGY Result Value Ref Range CASE REPORT Surgical Pathology Report Case: [id number] Authorizing Provider: Ita Vazquez MD Collected: 11/22/2018 10:15 AM Ordering Location: [facility] OUTPATIENT SURGERY Received: 11/22/2018 10:18 AM [facility] Pathologist: Joaquín Holcomb MD Specimens: A) - Axilla, left, senitinal lymph nodes B) - Breast, left, lumpectomy short stitch superior long stitch lateral clip at deep margin C) - Breast, left, re-excision medial to deep margin stitch at new margin FINAL DIAGNOSIS A. 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 B. Breast, left, lumpectomy: - Invasive ductal carcinoma, with the following features: 1. Size: 1.3 cm. 2. Donnie score: 6/9. 3. Margins: Invasive carcinoma 3 mm from the posterior margin. 4. Lymphvascular invasion: Not definitively identified. 5. Stage: pT1c snN1mi. 6. Biomarkers: HER2 1+ (ER and LA positive performed previously on [id number]). - Radial scar. - Intraductal papilloma (0.1 [...] 2; B5 to B8-level 3; B9 to M24-tgekp 4; B13 to C61-kdycb 5; B17 to A77-bxlkp 6; B21 and 22-inferior margin perpendicularly sectioned. [...] AA/sania MICROSCOPIC DESCRIPTION Slides are received labeled [id number] and Jolene Cedillo. The left axillary sentinel [...] of Lymph Nodes Examined: 2 Number of [place] Nodes Examined: 2 PATHOLOGIC STAGE CLASSIFICATION (pTNM, [...] developed and its performance characteristic determined by [facility], Department of Laboratory Medicine. It has [...] WF, WB and WH are performed by [address], [address]. All other case types are performed by [facility] [address] [facility], [address]. SCANS No results found for this or any previous visit. Results for orders placed during the hospital encounter of 06/27/18 CT ABDOMEN PELVIS W CONTRAST Impression IMPRESSION: 1. No CT evidence of metastatic disease in the abdomen or pelvis. 2. Large hiatal hernia with intrathoracic stomach. DICTATION LOCATION: The above dictation was performed at Location [facility]. No results found for this or any previous visit. No results found for this or any previous visit. ASSESSMENT and PLAN Ms. Cedillo is a 72 yo woman with [id number] breast cancer, ER+/LA+/HER2-, NS 6. I have discussed with the [...] need adjuvant XRT. Dr. John Ag in [place] has been consulted and she will see him nextweek. I then talked about systemic treatment of breast cancer as treatment of micrometastatic disease to decrease the chance of recurrence. Since her tumor is strongly ER/LA positive, I have recommended hormonal Rx with [...] hesitate to contact me. Caron Mohan MD S ASSISTANT documented in this encounter Plan of Treatment Upcoming Encounters Date Type Department Care Team (Late st Contact Info) Description 03/19/2025 10:45 AM CDT Appointment [facility] [address] [place] [phone] Caron Mohan MD [address] [place] [address] 03/19/2025 11:30 AM CDT Office Visit [facility] Oncology and Hematology [address] [address] [place] [address] Caron Mohan MD [address] [place] [phone] [place] [address] [facility] [address] [place] [address] documented as of this encounter [...] embolism documented in this encounter Care Teams White Hat Hacker Relationship Specialty Start Date End Date Francisco Long MD PCP - General Internal Medicine 06/27/18 documented as of this encounter
--- OUTSIDE RECORDS SUMMARY | 2024-11-16 15:29 | XMS_ITS | Encounter Summary ---
Author Organization [employer] [facility] Address [address] [place] [address] Care Team Providers Care Laser Engineer Name Role Phone Francisco Long MD Primary Care Provider Unavailabl e Reason for Referral * Radiology Services (Routine) - Closed Specialty Diagnoses / Procedures Referred By Halima t Referred To Contact Diagnoses Invasive ductal carcinoma of left breast Procedures MAMMO US GUIDE NEEDLE PLACEMENT MAMMO NEED[place] [address] [place] [address] Referral ID Status Reason Start Date Expiration Date Visits Re quested Visits Authorized [id number] Closed 10/01/2018 11/01/2019 1 1 SIT MIX OPERATOR * Radiology Services (Routine) - Closed Specialty Diagnoses / Procedures Referred By Halima t Referred To Contact Diagnoses Invasive ductal carcinoma of left breast Procedures NM [place] [address] [place] [address] Referral ID Status Reason Start Date Expiration Date Visits Re quested Visits Authorized [id number] Closed 10/01/2018 11/01/2019 1 1 SIT MIX OPERATOR * Radiology Services (Routine) - Closed Specialty Diagnoses / Procedures Referred By Halima t Referred To Contact Diagnoses Invasive ductal carcinoma of left breast Procedures MAMMO [place] [address] [place] [address] Referral ID Status Reason Start Date Expiration Date Visits Re quested Visits Authorized [id number] Closed 10/01/2018 11/01/2019 1 1 SIT MIX OPERATOR Reason for Visit * Reason Comments Cancer Talk Encounter Details Date Type Department Care Team (Late st Contact Info) Description 10/01/2018 3:45 PM TRANSIT MIX OPERATOR Office Visit [facility] BREAST SURGERY - [place] [address] [place] [address] [place] [address] [place] [address] Invasive ductal carcinoma of left [...] Comments Blood Pressure 144/88 10/01/2018 2:33 PM TRANSIT MIX OPERATOR Pulse - - Temperature - - Respiratory Rate - - Oxygen Saturation - - Inhaled Oxygen Concentration - - Weight 86.2 kg (190 lb) 10/01/2018 2:33 PM TRANSIT MIX OPERATOR Height 170.2 cm (5' 7 ) 10/01/2018 2:33 PM TRANSIT MIX OPERATOR Body Mass Index 29.76 10/01/2018 2:33 PM TRANSIT MIX OPERATOR documented in this encounter Progress Notes * Ita Vazquez MD - 10/01/2018 2:36 PM CST PATIENT: Jolene Cedillo : 1945 DATE: 10/01/2018 The patient presents today to discuss her recent breast cancer diagnosis. She comes in today with her . IMAGIN09/03/18: Bilateral mammogram with left additional views and ultrasound at [place]- there is a new 16 mm irregular [...] pT1c. - Biomarker results: ER 8/8 (positive), AR 8/8 (positive), Her2 IHC 1+ (negative). - [...] would like to have this done in [place]. - 40 minutes was spent in discussion [...] Vazquez MD, FACS cc: Francisco Long MD SIT MIX OPERATOR documented in this encounter Plan of Treatment Upcoming Encounters Date Type Department Care Team (Late st Contact Info) Description 03/19/2025 10:45 AM CDT Appointment [facility] [address] [place] [address] Caron Mohan MD [address] [place] [address] 03/19/2025 11:30 AM CDT Office Visit [facility] Oncology and Hematology [address] [place] [address] Caron Mohan MD [address] [place] [address] [place] [address] [place] [address] documented as of this encounter Results * MAMMO POST PROCEDURE MAMMO LEFT (11/22/2018 10:43 AM TRANSIT MIX OPERATOR) Anatomical Region Laterality Modality Breast Left Mammography 11/22/2018 7:37 AM TRANSIT MIX OPERATOR Impressions 11/25/2018 1:04 PM TRANSIT MIX OPERATOR IMPRESSION: Technically successful ultrasound-guided needle localization and surgical excision of the left breast as described above. DICTATION LOCATION: [facility] 11/25/2018 1:04 PM TRANSIT MIX OPERATOR ULTRASOUND-GUIDED NEEDLE LOCALIZATION OF THE LEFT [...] left breast as described above. DICTATION LOCATION: [facility] Ita Vazquez MD MAMMO ORDERABLES * MAMMO US GUIDE NEEDLE PLACEMENT (11/22/2018 8:55 AM TRANSIT MIX OPERATOR) Anatomical Region Laterality Modality Breast N/A Ultrasound 11/22/2018 9:56 AM TRANSIT MIX OPERATOR Impressions 11/25/2018 1:04 PM TRANSIT MIX OPERATOR IMPRESSION: Technically successful ultrasound-guided needle localization and surgical excision of the left breast as described above. DICTATION LOCATION: [facility] 11/25/2018 1:04 PM TRANSIT MIX OPERATOR ULTRASOUND-GUIDED NEEDLE LOCALIZATION OF THE LEFT [...] ORDERABLES * NM LYMPHOSCINTIGRAPHY (11/22/2018 8:28 AM TRANSIT MIX OPERATOR) Anatomical Region Laterality Modality Nuclear Medicine 11/22/2018 8:28 AM TRANSIT MIX OPERATOR Impressions 11/22/2018 8:33 AM TRANSIT MIX OPERATOR IMPRESSION: ??[place] lymph node identified and marked in the axilla. Dictated by Dr. Fortino Islas MD DICTATION LOCATION: 1 Narrative 11/22/2018 8:33 AM TRANSIT MIX OPERATOR SENTINEL LYMPH NODE IMAGING DATE: 11/22/2018 8:28 AM HISTORY: Invasive ductal carcinoma of the left breast. PROCEDURE: Skin preparation with Betadine and alcohol. Technetium Lymphoseek was injected as 2 intradermal injections around the periareolar region. [place] lymph node in the axilla identified and marked. RADIOPHARMACEUTICAL: 0.52 mCi 99m technetium Lymphoseek Procedure Note Fortino Islas MD - 11/22/2018 SENTINEL LYMPH NODE IMAGING DATE: 11/22/2018 8:28 AM HISTORY: Invasive ductal carcinoma of the left breast. PROCEDURE: Skin preparation with Betadine and alcohol. Technetium Lymphoseek was injected as 2 intradermal injections around the periareolar region. [place] lymph node in the axilla identified and marked. RADIOPHARMACEUTICAL: 0.52 mCi 99m technetium Lymphoseek IMPRESSION: [place] lymph node identified and marked in the axilla. Dictated by Dr. Fortino Islas MD DICTATION LOCATION: 1 Ita Vazquez MD NM ORDERABLES documented in this encounter Visit Diagnoses Diagnosis Invasive ductal carcinoma of left breast- Primary documented in this encounter Care Teams Laser Engineer Relationship Specialty Start Date End Date Francisco Long MD PCP - General Internal Medicine 06/27/18 documented as of this encounter
--- OUTSIDE RECORDS SUMMARY | 2024-11-16 15:29 | XMS_ITS | Encounter Summary ---
Author Organization [facility] Address [address] [place] [address] Care Team Providers Care Reclamation Worker Name Role Phone Francisco Long MD Primary Care Provider Unavailabl e Reason for Visit * Reason Onset Date Comments Abnormal Lab Results 12/24/2018 Encounter Details Date Type Department Care Team (Late st Contact Info) Description 12/24/2018 Telephone [facility] ONCOLOGY AND HEMATOLOGY-[place] [address] [place] [address] Caron Mohan MD [address] [address] [place], [place] [phone] Abnormal Lab Results Social History Tobacco Use [...] Caron Mohan MD - 12/24/2018 12:56 PM BRAILLE PROOFREADER I called her with Oncotype results. Low risk, no benefit to chemotherapy. Proceed with RT in and see me in January. Pt understands, questions answered. LLE PROOFREADER documented in this encounter Plan of Treatment Upcoming Encounters Date Type Department Care Team (Late st Contact Info) Description 03/19/2025 10:45 AM CDT Appointment [facility] [address] [place] [phone] Caron Mohan MD [address] [place], [place] [phone] 03/19/2025 11:30 AM CDT Office Visit [facility] Oncology and Hematology [place] [address] [address] [place] [address] Caron Mohan MD [address] [place], [place] [phone] [place] [address] [address] [place] [address] documented as of this encounter Visit Diagnoses Not on filedocumented in this encounter Care Teams Reclamation Worker Relationship Specialty Start Date End Date Francisco Long MD PCP - General Internal Medicine 06/27/18 documented as of this encounter
--- OUTSIDE RECORDS SUMMARY | 2024-11-16 15:29 | XMS_ITS | Encounter Summary ---
Author Organization [facility] Address [address] [place] [address] Care Team Providers Care Field Attendant Name Role Phone Francisco Long MD [...] Caron Mohan MD [address] [place] [address] Referral ID Status Reason Start Date Expiration Date V isits Requested Visits Authorized [id number] Closed [facility] CTS 02/10/2019 03/12/2020 1 1 Reason for Visit * Reason Comments Follow Up 2 months Encounter Details Date Type Department Care Team (Latest Contact Info) Description 02/10/2019 10:15 AM CDT Office Visit [facility] ONCOLOGY AND HEMATOLOGY-[place] [address] [address] [place] [phone] Caron Mohan MD [address] [facility] [address] [place] [address] Malignant neoplasm of upper-inner quadrant of [...] Mohan MD - 02/10/2019 10:04 AM CDT [facility] Oncology and Hematology Date of Service: 02/10/2019 [...] clot after knee surgery. DEXA 2017 at [facility] but unable to access results. [...] ??? 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 AL BX/REMV,LYMPH NODE,DEEP AXILL Left 11/22/2018 LEFT AXILLARY SENTINEL LYMPH NODE BIOPSY WITH NUC MED AT 7:45 AM performed by Ita Vazquez MD at [facility] OR ??? AL LAP,LYMPH NODE BX N/A 07/09/2018 PELVIC LYMPH NODE STAGING DAVINCI SI performed by Micki Cadena MD at [facility] OR [facility] ??? AL LAP,RMV ADNEXAL STRUCTURE Bilateral 07/09/2018 SALPINGO-OOPHORECTOMY DAVINCI SI performed by Micki Cadena MD at [facility] OR [facility] ??? AL LAPAROSCOPY W TOT HYSTERECT UTERUS 250 GRAM OR LESS N/A 07/09/2018 HYSTERECTOMY TOTAL DAVINCI SI performed by Micki Cadena MD at [facility] OR [facility] ??? AL MASTECTOMY, PARTIAL Left 11/22/2018 LEFT BREAST LUMPECTOMY WITH NLOC @ 8:30 AM performed by Ita Vazquez MD at [facility] OR Social History Social History ??? Marital [...] or rashes. Psych: No depression or anxiety. 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 Breasts: see [...] following features: 1. Size: 12 mm. 2. [place] score: 6/9. 3. Lymphvascular invasion: Not identified. 4. Stage: pT1c. - Biomarker results: ER 8/8 (positive), AL 8/8 (positive), Her2 IHC 1+ (negative). - Low to intermediate grade ductal carcinoma in situ, minute focus, with associated calcifications. FINAL DIAGNOSIS A. 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 ?? B. Breast, left, lumpectomy: - Invasive ductal carcinoma, with the following features: 1. Size: 1.3 cm. 2. Donnie score: 6/9. 3. Margins: Invasive carcinoma 3 mm from the posterior margin. 4. Lymphvascular invasion: Not definitively identified. 5. Stage: pT1c snN1mi. 6. Biomarkers: HER2 1+ (ER and AL positive performed previously on [id number]). - Radial scar. - Intraductal papilloma (0.1 [...] LOCATION: The above dictation was performed at [address] No results found for this or any previous visit. No results found for this or any previous visit. ASSESSMENT and PLAN Ms. Cedillo is a 72 yo woman with B7yT4gvE9 breast cancer, ER+/AL+/HER2-, NS 6. I have [...] need adjuvant XRT. Dr. John Ag in [place] has completed her radiation. I then talked [...] CDT Appointment [facility] [address] [place] [address] Caron Mohan MD [address] [address] [place] [address] 03/19/2025 11:30 AM CDT Office Visit [facility] Oncology and Hematology [address] [place] [address] Caron Mohan MD [address] [place] [phone] [place] [address] [place] [address] documented as of this encounter Results * XR DEXA BONE DENSITY AXIAL 1 OR MORE SITES (03/11/2019) Anatomical Region Laterality Modality Other Caron Mohan MD DIAGNOSTIC IMAGING O RDERABLES * (ABNORMAL) VITAMIN D 25 HYDROXY (02/10/2019 11:10 AM CDT) VITAMIN D TOTAL (25OH) 20(L) 30 - 100 ng/mL 02/10/2019 7:19 PM CDT [facility] [employer] [facility] Blood Venipuncture / Unknown 02/10/2019 11:10 AM CDT 02/10/2019 11:10 AM CDT Narrative [facility] - 02/10/2019 7:19 PM CDT Interpretive Data Chart: Deficient: 0 - 20 ng/mL Insufficient: 21 - 29 ng/mL Sufficient: 30 - 100 ng/mL Increased Risk of Hypercalciuria: >100 ng/mL Toxic: >150 ng/mL Caron Mohan MD CHEMISTRY ORDERABLES [facility] CLIA# [id number] [address] [facility] [place] [address] documented in this encounter Visit Diagnoses Diagnosis [...] (chronic) documented in this encounter Care Teams Field Attendant Relationship Specialty Start Date End Date Francisco Long MD PCP - General Internal Medicine 06/27/18 documented as of this encounter
--- OUTSIDE RECORDS SUMMARY | 2024-11-16 15:29 | XMS_ITS | Encounter Summary ---
Author Organization [facility] Address [address] [place] [address] Care Team Providers Care Gas Maker Helper Name Role Phone Francisco Long MD [...] DIGITAL BREAST TOM[place] [address] [place] [address] Referral ID Status Reason Start Date Expiration Date Visits Re quested Visits Authorized [id number] Closed 12/11/2018 01/11/2020 1 1 Reason for [...] DIGITAL BREAST TOMOS[place] [address] [place] [address] Referral ID Status Reason Start Date Expiration Date Visits Re quested Visits Authorized [id number] Closed 12/11/2018 01/11/2020 1 1 Encounter Details Date Type Department Care Team (Latest Contact Info) Description 05/14/2019 9:53 AM CDT - 05/14/2019 11:59 PM CDT Hospital Encounter [facility] [address] [place] [address] [place] [address] [place] [address] Discharge Disposition: Home or Self Care [...] [facility] [address] [place] [address] Caron Mohan MD [address] [place] [phone] 03/19/2025 11:30 AM CDT Office Visit [facility] Oncology and Hematology [address] [place] [address] Caron Mohan MD [address] [place] [phone] [place] [address] [facility] [address] [place] [address] documented as [...] Recommendation: Annual mammography is recommended. DICTATION LOCATION: [facility] Ita Vazquez MD MAMMO ORDERABLES documented in this encounter Visit Diagnoses Diagnosis Malignant neoplasm of upper-inner quadrant of left breast in female, estrogen receptor positive documented in this encounter Care Teams Gas Maker Helper Relationship Specialty Start Date End Date Francisco Long MD PCP - General Internal Medicine 06/27/18 documented as of this encounter
--- OUTSIDE RECORDS SUMMARY | 2024-11-16 15:29 | XMS_ITS | Encounter Summary ---
Author Organization [facility] Address [address] [place] [address] Care Team Providers Care Manager Property Name Role Phone Francisco Long MD Primary Care Provider Unavailabl e Encounter Details Date Type Department Care Team (Late st Contact Info) Description 10/04/2018 Chart Note [facility] [address] [place] [address] Enma Verdugo RN Social History [...] Verdugo RN BS BSN Breast Health Nurse Navigator-[facility] O MACHINE OPERATOR documented in this encounter Plan of Treatment Upcoming Encounters Date Type Department Care Team (Late st Contact Info) Description 03/19/2025 10:45 AM CDT Appointment [facility] [address] [place] [phone] Caron Mohan MD [address] [place], [place] [phone] 03/19/2025 11:30 AM CDT Office Visit [facility] Oncology and Hematology [address] [place] [address] Caron Mohan MD [address] [place], [place] [phone] [place] [address] [place] [address] documented as of this encounter Visit Diagnoses Not on filedocumented in this encounter Care Teams Manager Property Relationship Specialty Start Date End Date Francisco Lnog MD PCP - General Internal Medicine 06/27/18 documented as of this encounter
--- OUTSIDE RECORDS SUMMARY | 2024-11-16 15:29 | XMS_ITS | Encounter Summary ---
Author Organization [facility] Address [address] [place] [address] Care Team Providers Care Commercial Energy Rater Name Role Phone Francisco Long MD Primary Care Provider Unavailabl e Encounter Details Date Type Department Care Team (Late st Contact Info) Description 02/12/2019 Orders Only [facility]-[place] [address] [place] [phone] Pricilla Olsen RN Social History Tobacco Use [...] CDT Appointment [facility] [address] [address] [place] [phone] Caron Mohan MD [address] [facility] [address] [place] [phone] 03/19/2025 11:30 AM CDT Office Visit [facility] Oncology and Hematology [place] [address] [place] [address] Caron Mohan MD [address] [facility] [address] [place] [phone] [place] [address] [place] [phone] documented as of this encounter Visit Diagnoses Not on filedocumented in this encounter Care Teams Commercial Energy Rater Relationship Specialty Start Date End Date Francisco Long MD PCP - General Internal Medicine 06/27/18 documented as of this encounter
--- OUTSIDE RECORDS SUMMARY | 2024-11-16 15:29 | XMS_ITS | Encounter Summary ---
Author Organization [facility] Address [address] [place] [address] Care Team Providers Care Java User Interface Developer Name Role Phone Francisco Long MD Primary Care Provider Unavailabl e Encounter Details Date Type Department Care Team (Late st Contact Info) Description 11/21/2018 Chart Note [facility] [place] [address] [address] [place] [phone] Enma Verdugo RN Social History Tobacco Use [...] AM CDT Appointment [facility] [place] [address] [place] [address] Caron Mohan MD [address] [facility] [address] [place] [address] 03/19/2025 11:30 AM CDT Office Visit [facility] Oncology and Hematology [place] [address] [place] [address] Caron Mohan MD [address] [facility] [address] [place] [address] [place] [address] [place] [address] documented as of this encounter Visit Diagnoses Not on filedocumented in this encounter Care Teams Java User Interface Developer Relationship Specialty Start Date End Date Francisco Long MD PCP - General Internal Medicine 06/27/18 documented as of this encounter
--- OUTSIDE RECORDS SUMMARY | 2024-11-16 15:29 | XMS_ITS | Encounter Summary ---
Author Organization [facility] Address [address] [place] [address] Care Team Providers Care Paint Coating Machine Operator Name Role Phone Francisco Long MD Primary Care Provider Unavailabl e Reason for Visit * Auth/Cert Specialty Diagnoses / Procedures Referred By Halima garcia Referred To Contact Laboratory [facility] Outpatient Laboratory [facility] [address] [place] [address] Referral ID Status Reason Start Date Expiration Date Visits Re quested Visits Authorized [id number] 1 1 Encounter Details Date Type Department Care Team (Latest Contact Info) Description 02/10/2019 11:04 AM CDT - 02/10/2019 11:59 PM CDT Hospital Encounter [facility] Outpatient Laboratory Services [address] [place] [address] Caron Mohan MD [address] [place], [place] [phone] Discharge Disposition: Home or Self Care Social [...] CDT Appointment [facility] [address] [place] [phone] Caron Mohan MD [address] [place] [address] 03/19/2025 11:30 AM CDT Office Visit [facility] Oncology and Hematology [place] [address] [place] [address] Caron Mohan MD [address] [place] [address] [place] [address] [facility] [address] [place] [address] documented as of this encounter Procedures Procedure Name Priority Date/Time Associated Diagnosis Comments VITAMIN D 25 HYDROXY Routine 02/10/2019 11:10 AM CDT Vitamin D deficiency documented in this encounter Results * (ABNORMAL) VITAMIN D 25 HYDROXY (02/10/2019 11:10 AM CDT) VITAMIN D TOTAL (25OH) 20(L) 30 - 100 ng/mL 02/10/2019 7:19 PM CDT [facility] Blood Venipuncture / Unknown 02/10/2019 11:10 AM CDT 02/10/2019 11:10 AM CDT Narrative [facility] - 02/10/2019 7:19 PM CDT Interpretive Data Chart: Deficient: 0 - 20 ng/mL Insufficient: 21 - 29 ng/mL Sufficient: 30 - 100 ng/mL Increased Risk of Hypercalciuria: >100 ng/mL Toxic: >150 ng/mL Caron Mohan MD CHEMISTRY ORDERABLES Performing Organization Address [facility]/State/ZIP Co de Phone Number [facility]# [id number] [address] [place] [address] documented in this encounter Visit Diagnoses Diagnosis Vitamin D deficiency Unspecified vitamin D deficiency documented in this encounter Care Teams Paint Coating Machine Operator Relationship Specialty Start Date End Date Francisco Long MD PCP - General Internal Medicine 06/27/18 documented as of this encounter
--- OUTSIDE RECORDS SUMMARY | 2024-11-16 15:29 | XMS_ITS | Encounter Summary ---
Author Organization [facility] Address [address] [place] [address] Care Team Providers Care Recreation Activities Coordinator Name Role Phone Francisco Long MD Primary Care Provider Unavailabl e Encounter Details Date Type Department Care Team (Late Contact Info) Description 10/01/2018 Orders Only [facility] BREAST SURGERY - [place]LRKS[place] [address] [facility] [address] [place] [address] [place] [address] [facility] [address] [place] [address] Invasive ductal carcinoma of breast, [...] [facility] [address] [place] [address] Caron Mohan MD [address] [place] [address] 03/19/2025 11:30 AM CDT Office Visit [facility] Oncology and Hematology [place] [address] [place] [address] Caron Mohan MD [address] [place], [place] [phone] [place] [address] [place] [address] documented as of this encounter Visit Diagnoses Diagnosis Invasive ductal carcinoma of breast, left- Primary documented in this encounter Care Teams Recreation Activities Coordinator Relationship Specialty Start Date End Date Francisco Long MD PCP - General Internal Medicine 06/27/18 documented as of this encounter
--- OUTSIDE RECORDS SUMMARY | 2024-11-16 15:29 | XMS_ITS | Encounter Summary ---
Author Organization [facility] Address [address] [place] [address] Care Team Providers Care Continuous Process Rotary Drum Tanner Name Role Phone Francisco Long MD Primary [...] DIGITAL BREAST [place] [address] [place] [address] Referral ID Status Reason Start Date Expiration Date Visits Re quested Visits Authorized [id number] Closed 05/14/2019 06/13/2020 1 1 Reason for Visit * Reason Comments Follow Up 6 MONTHS Encounter Details Date Type Department Care Team (Late st Contact Info) Description 05/14/2019 11:00 AM CDT Office Visit [facility] BREAST SURGERY - [place] [address] [place] [address] [place] [address] [place] [address] Malignant neoplasm of upper-inner quadrant [...] of diagnosis: 09/23/18 Diagnosis: LEFT IDC ER(+) WA(+) Her 2 (-) Surgeon: Taylor Surgery: 11/22/18 left lump/SLN Medical Oncologist: Kimberlee Chemotherapy: none Radiation Oncologist: Dr. John Ag office at [facility] Radiation: Hormonal therapy: Femara CHIEF COMPLAINT: [...] ??? 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 WA BX/REMV,LYMPH NODE,DEEP AXILL Left 11/22/2018 LEFT AXILLARY SENTINEL LYMPH NODE BIOPSY WITH NUC MED AT 7:45 AM performed by Ita Vazquez MD at [facility] OR ??? WA LAP,LYMPH NODE BX N/A 07/09/2018 PELVIC LYMPH NODE STAGING DAVINCI SI performed by Micki Cadena MD at [facility] OR [facility] ??? WA LAP,RMV ADNEXAL STRUCTURE Bilateral 07/09/2018 SALPINGO-OOPHORECTOMY DAVINCI SI performed by Micki Cadena MD at [facility] OR [facility] ??? WA LAPAROSCOPY W TOT HYSTERECT UTERUS 250 GRAM OR LESS N/A 07/09/2018 HYSTERECTOMY TOTAL DAVINCI SI performed by Micki Cadena MD at [facility] OR [facility] ??? WA MASTECTOMY, PARTIAL Left 11/22/2018 LEFT BREAST LUMPECTOMY [...] file Gets together: Not on file Attends methodist service: Not on file Active member of [...] with left additional views and ultrasound at [place]- there is a new 16 mm irregular mass at 9:00 on the left. Stable 1.7 cm nodular density in the left subareolar breast. By ultrasound this measures 1.3 cm. Biopsy is recommended 05/25/17: Bilateral mammogram PATHOLOGY: 11/22/19 A. 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 ?? B. Breast, left, lumpectomy: - Invasive ductal carcinoma, with the following features: 1. Size: 1.3 cm. 2. [place] score: /9. 3. Margins: Invasive carcinoma 3 mm from the posterior margin. 4. Lymphvascular invasion: Not definitively identified. 5. Stage: pT1c snN1mi. 6. Biomarkers: HER2 1+ (ER and WA positive performed previously on [id number]). - Radial scar. - Intraductal papilloma (0.1 [...] pT1c. - Biomarker results: ??ER 07/03 (positive), WA 07/03 (positive), Her2 IHC 1+ (negative). - [...] Description 03/19/2025 10:45 AM CDT Appointment [facility] [address] [place] [address] Caron Mohan MD [address] [facility] [address] [place] [phone] 03/19/2025 11:30 AM CDT Office Visit [facility] Oncology and Hematology [place] [address] [place] [address] Caron Mohan MD [address] [facility] [address] [place] [phone] [place] [address] [place] [address] documented as of this encounter Results * MAMMO DIAG BILAT 3D CATHY W OR WO CAD (11/12/2019 9:26 AM SAMPLE TAILOR) Anatomical Region Laterality Modality Breast Bilateral Mammography 11/12/2019 9:26 AM SAMPLE TAILOR Impressions 11/13/2019 3:59 PM SAMPLE TAILOR IMPRESSION: No suspicious findings to suggest malignancy in either breast. Annual mammography is recommended. OVERALL FINAL ASSESSMENT: ??BI-RADS CATEGORY 2: Benign findings Narrative 11/13/2019 3:59 PM SAMPLE TAILOR EXAM: BILATERAL DIAGNOSTIC DIGITAL MAMMOGRAM WITH 3D TOMOSYNTHESIS AND CAD DATE: 11/12/2019 9:26 AM HISTORY: Personal history of breast cancer with prior left conservation therapy. [facility]ISON: 05/14/2019 and older. TECHNIQUE: Mediolateral [...] with prior left conservation therapy. DICTATION LOCATION: [facility] COMPARISON: 05/14/2019 and older. TECHNIQUE: Mediolateral oblique, [...] positive documented in this encounter Care Teams Continuous Process Rotary Drum Tanner Relationship Specialty Start Date End Date Francisco Long MD PCP - General Internal Medicine 06/27/18 documented as of this encounter
--- OUTSIDE RECORDS SUMMARY | 2024-11-16 15:29 | XMS_ITS | Encounter Summary ---
Author Organization [facility] Address [address] [place] [address] Care Team Providers Care Rack Maker Name Role Phone Francisco Long MD [...] DIGITAL BREAST TOMOS[place] [address] [place] [address] Referral ID Status Reason Start Date Expiration Date Visits Re quested Visits Authorized [id number] Closed 12/11/2018 01/11/2020 1 1 RIENCE SPECIALIST Reason for Visit * Reason Comments Post-op Visit Encounter Details Date Type Department Care Team (Late st Contact Info) Description 12/11/2018 9:45 AM EXPERIENCE SPECIALIST Office Visit [facility] BREAST SURGERY - [place] [address] [place] [address] [place] [address] [place] [address] Malignant neoplasm of upper-inner quadrant [...] as of this encounter Progress Notes * Ita Vazquez MD - 12/11/2018 9:53 AM CST PATIENT: Jolene Cedillo : 1945 DATE: 12/11/2018 The patient underwent left lump/SLN. She reports that she is healing well. On exam her incision is healing nicely. There is no evidence of infection. There were no vitals filed for this visit. PATHOLOGY: 11/22/19 A. 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 ?? B. Breast, left, lumpectomy: - Invasive ductal carcinoma, with the following features: 1. Size: 1.3 cm. 2. Donnie score: 6/9. 3. Margins: Invasive carcinoma 3 mm from the posterior margin. 4. Lymphvascular invasion: Not definitively identified. 5. Stage: pT1c snN1mi. 6. Biomarkers: HER2 1+ (ER and [place] positive performed previously on [id number]). - Radial scar. - Intraductal papilloma (0.1 [...] - Benign breast tissue, negative for carcinoma. I will see her in 6 months with a left mammogram. She will follow-up with med onc and rad onc. Ita Vazquez MD, FACS 12/11/2018 9:53 AM RIENCE SPECIALIST * Felicia Colorado RN - 12/11/2018 9:31 AM CST Patient comes in today for f/u on left lumpectomy and SNB done on 11/22/18. Incision healing with resolving ecchymosis and tenderness. Dr Mohan today. Dr Moore next week for RT consult. ROm viktor. Dr Vazquez saw patient and discussed pathology. RIENCE SPECIALIST documented in this encounter Plan of Treatment Upcoming Encounters Date Type Department Care Team (Late st Contact Info) Description 03/19/2025 10:45 AM CDT Appointment [facility] [address] [place] [address] Caron Mohan MD [address] [facility] [address] [place], [place] [phone] 03/19/2025 11:30 AM CDT Office Visit [facility] Oncology and Hematology [address] [address] [place] [address] Caron Mohan MD [address] [facility] [address] [place], [place] [phone] [place] [address] [facility] [address] [place] [address] documented as of this encounter Results * MAMMO DIAG UNI [...] Recommendation: Annual mammography is recommended. DICTATION LOCATION: [facility] Ita Vazquez MD MAMMO ORDERABLES documented in this encounter Visit Diagnoses Diagnosis Malignant neoplasm of upper-inner quadrant of left breast in female, estrogen receptor positive- Primary Malignant neoplasm of upper-inner quadrant of left breast in female, estrogen receptor positive documented in this encounter Care Teams Rack Maker Relationship Specialty Start Date End Date Francisco Long MD PCP - General Internal Medicine 06/27/18 documented as of this encounter
--- OUTSIDE RECORDS SUMMARY | 2024-11-16 15:29 | XMS_ITS | Encounter Summary ---
Author Organization [facility] Address [address] [place] [address] Care Team Providers Care Business Information Consultant Name Role Phone Francisco Long MD Primary Care Provider Unavailabl e Encounter Details Date Type Department Care Team (Late Contact Info) Description 11/21/2018 [facility] [address] [place] [address] Enma Verdugo, RN Social History [...] Verdugo RN BS BSN Breast Health Nurse Navigator-[facility] OR MOBILE APPLICATION DEVELOPER documented in this encounter Plan of Treatment Upcoming Encounters Date Type Department Care Team (Late st Contact Info) Description 03/19/2025 10:45 AM CDT Appointment [facility] [address] [place] [address] Caron Mohan MD [address] [place], [place] [phone] 03/19/2025 11:30 AM CDT Office Visit [facility] Oncology and Hematology [place] [address] [place] [address] Caron Mohan MD [address] [place], [place] [phone] [place] [address] [place] [address] documented as of this encounter Visit Diagnoses Not on filedocumented in this encounter Care Teams Business Information Consultant Relationship Specialty Start Date End Date Francisco Long MD PCP - General Internal Medicine 06/27/18 documented as of this encounter
--- OUTSIDE RECORDS SUMMARY | 2024-11-16 15:29 | XMS_ITS | Encounter Summary ---
Author Organization [facility] Address [address] [place] [address] Care Team Providers Care Law Instructor Name Role Phone Francisco Long MD Primary Care Provider Unavailabl e Reason for Visit * Reason Onset Date Comments Medication Refill Medication Refill 05/15/2019 Encounter Details Date Type Department Care Team (Late Contact Info) Description 05/10/2019 Refill [facility] ONCOLOGY AND HEMATOLOGY-[place] [address] [place] [phone] Caron Mohan MD [address] [facility] [address] [place] [address] Social History Tobacco Use Types Packs/Day [...] CDT Appointment [facility] [address] [address] [place] [address] Caron Mohan MD [address] [place] [address] 03/19/2025 11:30 AM CDT Office Visit [facility] Oncology and Hematology [place] [address] [place] [address] Caron Mohan MD [address] [facility] [address] [place], [place] [phone] [place] [address] [place] [address] documented as of this encounter Visit Diagnoses Not on filedocumented in this encounter Care Teams Law Instructor Relationship Specialty Start Date End Date Francisco Long MD PCP - General Internal Medicine 06/27/18 documented as of this encounter
--- OUTSIDE RECORDS SUMMARY | 2024-11-16 15:29 | XMS_ITS | Encounter Summary ---
Author Organization [facility] Address [address] [place] [address] Care Team Providers Care Digital Account Supervisor Name Role Phone Francisco Long MD Primary Care Provider Unavailabl e Reason for Referral * Radiology Services (Routine) - Closed Specialty Diagnoses / Procedures Referred By Halima garcia Referred To Contact Diagnoses Breast lump Procedures MAMMO POST [place] [address] [place] [address] Referral ID Status Reason Start Date Expiration Date Visits Re quested Visits Authorized [id number] Closed 09/17/2018 10/18/2019 1 1 Reason for Visit * Radiology Services (Routine) - Closed Specialty Diagnoses / Procedures Referred By Halima garcia Referred To Contact Diagnoses Breast lump Procedures MAMMO POST [place] [address] [place] [address] Referral ID Status Reason Start Date Expiration Date Visits Re quested Visits Authorized [id number] Closed 09/17/2018 10/18/2019 1 1 Encounter Details Date Type Department Care Team (Latest Contact Info) Description 09/23/2018 10:12 AM CDT - 09/23/2018 11:59 PM CDT Hospital Encounter [facility] [address] [place] [address] [place] [address] [place] [address] Discharge Disposition: Home or Self [...] Appointment [facility] [address] [place] [address] Caron Mohan MD [address] [place] [phone] 03/19/2025 11:30 AM CDT Office Visit [facility] Oncology and Hematology [address] [place] [address] Caron Mohan MD [address] [facility] [address] [place] [phone] [place] [address] [place] [address] documented as of this encounter [...] breast documented in this encounter Care Teams Digital Account Supervisor Relationship Specialty Start Date End Date Francisco Long MD PCP - General Internal Medicine 06/27/18 documented as of this encounter
--- OUTSIDE RECORDS SUMMARY | 2024-11-16 15:29 | XMS_ITS | Encounter Summary ---
Author Organization [facility] Address [address] [place] [address] Care Team Providers Care Blacksmith Helper Name Role Phone Francisco Long MD Primary Care Provider Unavailabl e Encounter Details Date Type Department Care Team (Late st Contact Info) Description 02/12/2019 Orders Only [facility] ONCOLOGY AND HEMATOLOGY-JUST[place] LONG [address] [place] [address] Caron Mohan MD [address] [facility] [address] [place] [address] Vitamin D deficiency (Primary Dx); Aromatase [...] Info) Description 03/19/2025 10:45 AM CDT Appointment [facility] [address] [place] [address] Caron Mohan MD [address] [facility] [address] [place] [address] 03/19/2025 11:30 AM CDT Office Visit [facility] Oncology and Hematology [place] [address] [place] [address] Caron Mohan MD [address] [place] [address] Chaya Juarez, ESEQUIEL [address] [place] [address] documented as of this encounter Results * (ABNORMAL) VITAMIN D 25 HYDROXY (05/14/2019 11:22 AM CDT) Pathologist [facility] VITAMIN D TOTAL (25OH) 29(L) 30 - 100 ng/mL 05/15/2019 2:20 AM CDT [facility] Blood Venipuncture / Unknown 05/14/2019 11:22 AM CDT 05/14/2019 11:22 AM CDT Narrative [facility] - 05/15/2019 2:20 AM CDT Interpretive Data Chart: Deficient: 0 - 20 ng/mL Insufficient: 21 - 29 ng/mL Sufficient: 30 - 100 ng/mL Increased Risk of Hypercalciuria: >100 ng/mL Toxic: >150 ng/mL Caron Mohan MD CHEMISTRY ORDERABLES [facility] CLIA# [id number] [address] [place] [id number] documented in this encounter Visit Diagnoses Diagnosis Vitamin D deficiency- Primary Unspecified vitamin D deficiency Aromatase inhibitor use Use of aromatase inhibitors Malignant neoplasm of upper-inner quadrant of left breast in female, estrogen receptor positive documented in this encounter Care Teams Blacksmith Helper Relationship Specialty Start Date End Date Francisco Long MD PCP - General Internal Medicine 06/27/18 documented as of this encounter
--- OUTSIDE RECORDS SUMMARY | 2024-11-16 15:29 | XMS_ITS | Encounter Summary ---
Author Organization [facility] Address [address] [place] [address] Care Team Providers Care Policy Writer Typist Name Role Phone Francisco Long MD Primary Care Provider Unavailabl e Reason for Visit * Reason Comments Results pathology Encounter Details Date Type Department Care Team (Late st Contact Info) Description 12/02/2018 Chart Note [facility] BREAST SURGERY - [place] CLRKSN [address] [facility] [address] [place] [address] [place] [address] [facility] [address] [place] [address] Results (pathology) Social History Tobacco [...] node excision, left breast lumpectomy done at [facility] on 11-22-2018. Path reveals A. 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 ?? B. Breast, left, lumpectomy: - Invasive ductal carcinoma, with the following features: 1. Size: 1.3 cm. 2. Donnie score: 6/9. 3. Margins: Invasive carcinoma 3 mm from the posterior margin. 4. Lymphvascular invasion: Not definitively identified. 5. Stage: pT1c snN1mi. 6. Biomarkers: HER2 1+ (ER and VT positive performed previously on [id number]). - Radial scar. - Intraductal papilloma (0.1 [...] Appt. Will schedule Rad Onc appt at [facility], closer to home. Will contact pt with details. Pt voices understanding. 12-02-[address] John Ag office at [facility] for Rad Onc appt. They will set up appt and contact pt with details. [employer] PROGRAM IN DIETETICS DIRECTOR documented in this encounter Plan of Treatment Upcoming Encounters Date Type Department Care Team (Late st Contact Info) Description 03/19/2025 10:45 AM CDT Appointment [facility] [id number] [place] [address] Caron Mohan MD [address] [facility] [address] [place] [phone] 03/19/2025 11:30 AM CDT Office Visit [facility] Oncology and Hematology [place] [address] [place] [address] Caron Mohan MD [address] [facility] [address] [place], [place] [id number] [place] [address] [facility] [address] [place] [address] documented as of this encounter Visit Diagnoses Not on filedocumented in this encounter Care Teams Policy Writer Typist Relationship Specialty Start Date End Date Francisco Long MD PCP - General Internal Medicine 06/27/18 documented as of this encounter
--- OUTSIDE RECORDS SUMMARY | 2024-11-16 15:29 | XMS_ITS | Encounter Summary ---
Author Organization [facility] Address [address] [place] [address] Care Team Providers Care General Ii Farmworker Name Role Phone Francisco Long MD Primary Care Provider Unavailabl e Encounter Details Date Type Department Care Team (Late st Contact Info) Description 11/15/2018 Chart Note [facility] BREAST SURGERY - CLY[place]renice GOMEZ [address] [place] [address] [place] [address] [facility] [address] [place] [address] Social History Tobacco Use Types [...] her iron tablets leading up to surgery. WALKER documented in this encounter Plan of Treatment Upcoming Encounters Date Type Department Care Team (Late st Contact Info) Description 03/19/2025 10:45 AM CDT Appointment [facility] [address] [place] [address] Caron Mohan MD [address] [place] [address] 03/19/2025 11:30 AM CDT Office Visit [facility] Oncology and Hematology Justin Long [address] [place] [address] Caron Mohan MD [address] [place], [place] [id number] [place] [address] [place] [address] documented as of this encounter Visit Diagnoses Not on filedocumented in this encounter Care Teams General Ii Farmworker Relationship Specialty Start Date End Date Francisco Long MD PCP - General Internal Medicine 06/27/18 documented as of this encounter
--- OUTSIDE RECORDS SUMMARY | 2024-11-16 15:29 | XMS_ITS | Encounter Summary ---
Author Organization [facility] Address [address] [place] [address] Care Team Providers Care Books Salesperson Name Role Phone Francisco Long MD Primary Care Provider Unavailabl e Reason for Referral * Radiology Services (Routine) - Closed Specialty Diagnoses / Procedures Referred By Halima garcia Referred To Contact Diagnoses Invasive ductal carcinoma of left breast Procedures [place] [address] [place] [address] Referral ID Status Reason Start Date Expiration Date Visits Re quested Visits Authorized [id number] Closed 10/01/2018 11/01/2019 1 1 CONSULTANT * Radiology Services (Routine) - Closed Specialty Diagnoses / Procedures Referred By Halima garcia Referred To Contact Diagnoses Invasive ductal carcinoma of left breast Procedures MAMMO POST [place] [address] [place] [address] Referral ID Status Reason Start Date Expiration Date Visits Re quested Visits Authorized [id number] Closed 10/01/2018 11/01/2019 1 1 CONSULTANT Reason for Visit * Auth/Cert Specialty Diagnoses / Procedures Referred By Halima garcia Referred To Contact Diagnoses Invasive ductal carcinoma of breast, left Invasive ductal carcinoma of breast, left [C50.912] Procedures MO MASTECTOMY, PARTIAL MO BX/REMV,LYMPH NODE,DEEP AXILL MO INTRAOPERATIVE SENTINEL LYMPH NODE ID W DYE INJECTION CHG LYMPHATICS & LYMPH GLANDS IMAGING Left Breast Lumpectomy W/NLOC [place] [address] [place] [address] Referral ID Status Reason Start Date Expiration Date Visits Re quested Visits Authorized [id number] 10/02/2018 1 1 Encounter Details Date Type Department Care Team (Latest Contact Info) Description 11/22/2018 6:12 AM CRM CONSULTANT - 11/22/2018 12:27 PM CRM CONSULTANT Hospital Encounter [facility] [address] [place] [id number] [place] [address] [place] [address] Malignant neoplasm of upper-inner quadrant [...] Comments Blood Pressure 126/55 11/22/2018 12:15 PM CRM CONSULTANT Pulse 85 11/22/2018 12:20 PM CRM CONSULTANT Temperature 36.3 ??C (97.4 ??F) 11/22/2018 10:[address] Respiratory Rate 25 11/22/2018 12:20 PM CRM CONSULTANT Oxygen Saturation 95% 11/22/2018 12:20 PM CRM CONSULTANT Inhaled Oxygen Concentration - - Weight 83 kg (183 lb) 11/22/2018 6:46 AM CRM CONSULTANT Height 170.2 cm (5' 7 ) 11/22/2018 6:46 AM CRM CONSULTANT Body Mass Index 28.66 11/22/2018 6:46 AM CRM CONSULTANT documented in this encounter Discharge Instructions * Discharge Instructions* Ita Vazquez MD - 11/22/2018 11:02 AM CRM CONSULTANT [facility] [address] [facility] [address] [place] [address] Post operative instructions: Activity: - Walk around [...] call this number to be connected to [email or web address] service. CONSULTANT documented in this encounter Medications at Time [...] ??? 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 MO LAP,LYMPH NODE BX N/A 07/09/2018 PELVIC LYMPH NODE STAGING DAVINCI SI performed by Micki Cadena MD at [facility] OR [facility] ??? MO LAP,RMV ADNEXAL STRUCTURE Bilateral 07/09/2018 SALPINGO-OOPHORECTOMY DAVINCI SI performed by Micki Cadena MD at [facility] OR [facility] ??? MO LAPAROSCOPY W TOT HYSTERECT UTERUS 250 GRAM OR LESS N/A 07/09/2018 HYSTERECTOMY TOTAL DAVINCI SI performed by Micki Cadena MD at [facility] ALLERGY: Allergies Allergen Reactions ??? Atorvastatin [...] injection 30 mL 30 mL Infiltration ONCE Fortion Coleman MD ??? sodium bicarbonate 4.2 % [...] with left additional views and ultrasound at [facility]- there is a new 16 mm irregular [...] pT1c. - Biomarker results: ??ER 8/8 (positive), MO 8/8 (positive), Her2 IHC 1+ (negative). 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 ASSESSMENT AND PLAN: ? Stage T1 N0 cancer of the left breast. For lump/SLN. Ita Vazquez MD, FACS 11/22/2018 9:28 AM CONSULTANT documented in this encounter OR Notes * [...] Signed: Ita Vazquez MD 11/22/2018, 10:59 AM CONSULTANT documented in this encounter Miscellaneous Notes * Treatment Plan - Karol George, [facility] - 11/22/2018 7:52 AM CST IMAGING SERVICES- NUCLEAR MEDICINE MEDICATION and FLUSH PROTOCOL [facility] ORDERS ARE ENTERED ???PER PROTOCOL?? Enter the protocol in the patient???s electronic health record using [employer]ed[employer]: .imagingnucmedicineprotocol Communication Orders: o For ordered imaging [...] dosages with a range are determined by auto salvage worker calibration PROCEDURE DOSAGE Bone Marrow Imaging In-111 Chloride (Indium-111 Chloride), Administer 2mCi, IV, ONE TIME. OR Aa91r-Ifwmoc Colloid (Stukiqfzma33y-buypxq colloid), Administer 8mCi Tc99m- sulfur colloid, IV, ONE TIME. Bone Pain Therapy - Quadramet Sm-153 (Samarium-153), Administer 1mCi/kg, IV, ONE TIME. Bone Pain Therapy - Xofigo Ra-223 Xofigo, Administer 1.49uCi/kg, IV, ONE TIME. AND Administer 5 mL sodium chloride, IV, repeated up to 5 times for a total of 30mL. Bone Scan Imaging (Whole Body, Limited, 3-Phase, or SPECT) Wq13y-CKB (Bqgtckvuvt46c-totmtqhso diphosphonate), Administer 25mCi, IV, ONE TIME. OR Yi96d-IFZ (Gvplknduqj43j-wsovyrizkensjqpt diphosphonate), Administer 25mCi, IV, ONE TIME. Brain Imaging Qn27t-OFYP (Yzadytyrcl91r-jjqaqhgcio-enuixirh-mdqlghbkavw), Administer 20mCi, IV, ONE TIME. Brain SPECT Imaging No70g-GYQU (Rwglzohzwk57m-hyvvdsflqg-ygctxzaj-snezalmymjn), Administer 30mCi, IV, ONE TIME. OR Lz60u-FWCRX (Ceretec) (Kzxpirrpxc87f-hnywtgbfobtarzqdxvv amine oxime), Administer 20mCi, IV, ONE TIME. OR Tl-201 (Thallium Chloride-201), Administer 6mCi, IV, ONE TIME. Cerebral Flow Imaging Nl56q-PQGU (Wegygiuwle25f-kqwfydveii-jcljanpc-pdwctwtkbrb), Administer 25mCi,IV, ONE TIME. Cisternogram Imaging In-111 DTPA (Indium-111 wvcjqhgkeh-hzhvrfwv-zlqzqqtngqm), Neuroradiologist to administer 500uCi, Intrathecally, ONE TIME. Cystogram Imaging Tc-99m Pertechnetate (Pzvemyhukj98y-ejqcuawhmsciy) Administer 1mCi Wt50k-kozgeuqvfzhza, intra-mcguire catheter, ONE TIME AND 1000ml NS, intra-mcguire catheter, ONE TIME. DaTscan Imaging I-123 Ioflupane (Iodine-123 ioflupane), Administer 5mCi, IV, ONE TIME. AND Administer SSKI (Potassium Iodide) drops, 130mg, Orally, ONE TIME one hour prior to radiopharmaceutical injection. Diuretic Renal Imaging Mh69u-QTTU (Dkjljbbpmu70e-rknqaeyrqq-ljvoxznm-bzeyuensbbl), Administer 5mCi,IV, ONE TIME. AND Administer Lasix (furosemide), 1mg/kg, IV push over 2 minutes, ONE TIME. Maximum dose of 40mg. OR Rt16w-KJA1 (Cetoxiqxcy57u-pflpcoxphmclzacljrzvilr), Administer 5mCi, IV, ONE TIME. AND Administer Lasix (furosemide), 1mg/kg, IV push over 2 minutes, ONE TIME. Maximum dose of 40mg. Diverticulum/Meckel's Imaging Tc-99m Pertechnetate (Awffxmpgex87w- pertechnetate), Administer 15mCi,IV, ONE TIME. Esophageal Reflux Imaging Ao14i-Dwvtqg Colloid (Mhabudayni03t-rombeh colloid), Administer 1mCi in 1oz whole milk [...] TIME. Gastric Empty Imaging - Solid Meal Ng64o-Cddisg Colloid (Mveetekvuv53g-wsuxcs colloid), Administer 500uCi in 4 oz egg beaters or in 1 package of cooked instant oatmeal, Orally, ONE TIME. Gastric Empty Imaging - Liquid Meal Zl03t-Xqaxlw Colloid (Kkuurlburt16x-vgwsfa colloid), Exjcalzwxu961yKy in 300mL whole milk, Orally, ONE TIME. GFR Imaging Zw06g-LZMU (Ftcgczhexk20j-fcmpdosxps-yskuoafl-yqjbjagiqga), Administer 3mCi, IV, ONE TIME. GI Bleed Imaging Tc-99m Pertechnetate (Cfzfwylhxv67d-kngoxhkrusytc), Administer 22mCi heparanized RBCs, IV, ONE TIME. Hemangioma Imaging NaPYP (sodium pyrophosphate) AND Tc-99m Pertechnetate (Dthtwipevw29d-hgeckxkbfptnk), Administer 6mg PYP, IV, ONE TIME. AND Administer 20mCi Wp84t-xbxooiclgurbu, IV, ONE TIME. OR Tc-99m Pertechnetate (Jiaklagyph51r-nsdsfmtfzsgvr), Administer 22mCi heparanized RBCs, IV, ONE TIME. Hepatic Artery Perfusion Imaging TC-99m MAA (Blpaybrsld14l-fzoxotdmmthkztm albumin), InterventionalRadiologist to administer 3 mCi in three divided doses of 1 mCi each, intra-arterial via catheter, ONE TIME. Hepatobiliary Scan Imaging Tc-99m Mebrofenin (Doqfjhkhja37n-ezogllqjch), Administer 5 mCi IV, ONE TIME *For inpatients only, if bilirubin >5mg/dL, Administer 8 mCi IV, ONE TIME *For inpatients only, if bilirubin > 8mg/dL, consult nuclear medicine physician prior to administering radiopharmaceutical Hepatobiliary Scan with Ejection Fraction Imaging Tc-99m Mebrofenin (Xcnngiioox07x-rvcclswvtb), Administer 5 mCi IV, ONE TIME. *For [...] Hepatobiliary Scan with Pre-Treatment Imaging Tc-99m Mebrofenin (Lgaywghvpl13x- mebrofenin), Administer 5 mCi IV, ONE TIME. [...] over 5 minutes. Hot PYP Bone Imaging Kt34p-ReSMA (Woahnutnge72d-bptrap pyrophosphate), Administer 15mCi, IV, ONE TIME. Hot PYP Cardiac Imaging Vc74u-ArXMM (Tdxqpvechz98l-dxjlod pyrophosphate), Administer 15mCi, IV, ONETIME. Hot PYP Muscle Imaging Up93y-JtLSJ (Nnqvnvoumj32v-caaceq pyrophosphate), Administer 20mCi, IV, ONE TIME. In-111 WBC Imaging In-111 Oxine (Indium-111 Oxine), Administer at least 400uCi, up to 800uCi, heparanized WBC, IV, ONE TIME. Lacrimal Imaging Aw51h-Xmillj Colloid (Tkozfbxaas63a-ttjpem colloid), Administer 2 drops per eye ik801oXu/drop, Droplet, ONE TIME. Liver Imaging To36b-Envqre Colloid (Fciqzdzbdd67j-byvkpl colloid), Administer 6mCi, IV, ONE TIME. Lung Perfusion - Obese Patient Imaging Tc-99m MAA (Mfxtxomghu12q-vviemaainzijtxr albumin), Administer 5mCi for patients > 35BMI, IV, ONE TIME. Lung Perfusion - Obese Patient Imaging Tc-99m MAA (Wiinogccqp15l- macroaggregated albumin),Administer 3mCi for patients > 35BMI, IV, ONE TIME. Lung Perfusion Imaging Tc-99m MAA (Txcogckpkm03o-exkghdhwihcvvlg albumin), Administer 4mCi, IV, ONETIME. Lung Perfusion - Patient Imaging Tc-99m MAA (Mvkdpbbxec56m- macroaggregated albumin), Administer 2mCi for patients , IV, ONE TIME. Lung Ventilation Imaging Xe-133 (Xenon-133), Administer at least 10 mCi, up to 30 mCi, inhalation, ONE TIME. Lymphoscintigraphy - Breast Cancer, Next Day Surgery Xk75g-Irvnpkxoqe (Vjnvxbehjt60f-wrhhjsnwmh), Administer 2mCi in 2 divided doses of 1mCi each, intradermal, ONE TIME. AND Lidocaine 4% (L.M.X.4) applied 30 minutes prior to injections, TOPICAL, ONE TIME PRN. Lymphoscintigraphy - Breast Cancer, Same Day Surgery Wb17z-Klqlrulclu (Yqrttybklc46f-ubexegsmzi), Administer 500uCi in 2 divided doses of 250uCi each, intradermal, ONE TIME. AND Lidocaine 4% (L.M.X.4) applied 30 minutes prior to injections, TOPICAL, ONE TIME PRN. Lymphoscintigraphy - Malignant Melanoma, Next Day Surgery Oc17w-Ysocegzdzj (Nuvzwpqvad81h-adtnylbcmq), Administer 2mCi in 4 divided doses of 0.5mCi each, intradermal, ONE TIME. AND Lidocaine 4% (L.M.X.4) applied 30 minutes prior to injections, TOPICAL, ONE TIME PRN. Lymphoscintigraphy - Malignant Melanoma, Same Day Surgery Vk97y-Xeubgtazzn (Gogxeobpta82a-eobzmebaqd), Administer 500uCi in 4 divided doses of 125uCi each, intradermal, ONE TIME. AND Lidocaine 4% (L.M.X.4) applied 30 minutes prior to injections, TOPICAL, ONE TIME PRN. Lymphoscintigraphy - Malignant Melanoma, Small Body Area, Next Day Surgery Ck76w-Phsfksqwse (Zkvgrlleqm49n-tpmngxyzwe), Administer 2mCi in 2 divided doses of 1mCi each, intradermal, ONE TIME. AND Lidocaine 4% (L.M.X.4) applied 30 minutes prior to injections, TOPICAL, ONE TIME PRN. Lymphoscintigraphy - Malignant Melanoma, Small Body Area, Same Day Surgery Kg57e-Zoyzlqygrr (Rsnrwtrklj63h-urjozqdryt), Administer 500uCi in 2 divided doses of 250uCi each, intradermal, ONE TIME. AND Lidocaine 4% (L.M.X.4) applied 30 minutes prior to injections, TOPICAL, ONE TIME PRN. MIBG Imaging I-123 MIBG (Iodine-123 metaiodobenzylguandidine), Administer 10mCi, IV, ONE TIME. Microsphere Mapping Tc-99m MAA (Qiebuzsakj58h-weqftcvezwmqehb albumin), Interventional Radiologist to administer 4 mCi in two divided doses of 2 mCi each, intra-arterial via catheter, ONE TIME. MUGA/RVG Imaging Tc-99m Pertechnetate (Bewikpnrjt79r-neeqrkpdosgby), Administer 22mCi heparanized RBCs, IV, ONE TIME. Myocardial Dual Isotope Imaging Tl-201 (Thallium Chloride-201) AND Ww53f-Ombwseh (Efwygyemff17i-rkxixhu), Administer 3mCi Tl-201for resting images, IV, ONE TIME AND Administer 8mCi Xb09n-uzsbtzu for stress images, IV, ONE TIME. Myocardial Planar Imaging Ow09y-Odkikqr (Cljamlyuwv22r-Gewrjag), Administer 30mCi, IV, ONE TIME lisa images, ONE TIME for stress images. Myocardial Rest Imaging - SPECT Imaging Tl-201 (Thallium Chloride-201), Administer 4mCi, IV, ONE TIME. OR Gm34t-Fxtmwff (Blcblyyqfe46z-Hlvndlj), Administer 4mCi for patients <180 lbs, IV, ONE TIME. OR Bg06r-Skdefha (Otnbjaxayu46g-Laxmuwg), Administer 5mCi for patients 181-240 lbs, IV, ONE TIME. OR Ft26z-Izazxpq (Nralhkrivj94t-Xglsnfn), Administer 6mCi for female patients 241- 265 lbs, IV, ONE TIME. OR Oq20q-Ofbufyn (Phzwvyyxzz28s-Ckdtlxs), Administer 6mCi for male patients 241-330 lbs, IV, ONE TIME. OR Pu85z-Apcnvwn (Seklcvrpul59u-Kqksgxu), Administer 8mCi for female patients 266- 399 lbs, IV, ONE TIME. OR Uk80w-Mxmksmk (Jfciiwzqwc63n-Dhkjzhj), Administer 8mCi for male patients 331-299 lbs, IV, ONE TIME. Myocardial Stress - SPECT Imaging Xq88u-Mwdmsdw (Yeehzztorj64n-Fnmqahl), Administer 12mCi for patients <180 lbs, IV, ONE TIME. OR Hl35m-Hnpgvag (Glwusivbnv33o-Wkglvrv), Administer 15mCi for patients 181-240 lbs, IV, ONE TIME. OR Jc36c-Dkihwvq (Sizloricqg45p-Neyqawq), Administer 18mCi for female patients 241- 265 lbs, IV, ONE TIME. OR Um40u-Hlxemap (Jirxgderem34o-Rvsjgff), Administer 18mCi for male patients 241- 330 lbs, IV, ONE TIME. OR Rv02e-Lhraibm (Bsevzzseyo84x-Nrvvpkm), Administer 24mCi for female patients 266- 399 lbs, IV, ONE TIME. OR Au10i-Rqjnnqv (Cmbffmadsq15z-Vinakgu), Administer 24mCi for male patients 331- 299 [...] Administer 6mCi, IV, ONE TIME. Parathyroid Imaging Cu46o-Lzlsoawjj (Otsfuadgcw96n-oluzvnbvw), Administer 20mCi, IV, ONE TIME. PET/CT Axumin F-18 Axumin (Wxljwdsk85-nxttbugpnnvd), Administer 10mCi, IV, ONE TIME. PET/CT Bone Scan F18-NaF (Nicgwzif86-wqiwyl fluoride), Administer 0.11mCi/kg with at least 8mCi, upto 14mCi, IV, ONE TIME. PET/CT Brain Imaging F18-FDG (Loerexka68-jzrkaqijocczroxoh), Administer 0.11mCi/kg with at least 8mCi, up to 14mCi, IV, ONE TIME. PET/CT Dotatate Imaging Ga-68 Dotatate (Gallium-68 Dotatate), Administer 5.4mCi, IV, ONE TIME. PET/CT Limited, Standard, or Whole-Body Oncology Imaging F18-FDG (Kbjctpjc20- flurodeoxyglucose), Administer 0.11mCi/kg with at least 8mCi, up to 14mCi, IV, ONE TIME. PET/CT Myocardial Scan F18-FDG (Huxsbnym69-lkdvjoygbgbgcvfui), Administer 0.11mCi/kg with at least 8mCi, up to 14mCi, IV, ONE TIME. Post GFR Imaging Ai32k-VJXK (Imfrcntkle54o-otldtgimyn-ryfgnkel-qiazfzqimhl), Administer 12mCi, IV, ONE TIME. OR Sv46g-GGP3 (Qbjlwiahmu89l-pfdwlbfmwwjvecauvlcnknw), Administer 5mCi, IV, ONE TIME. PY Breath Test C-14 Urea (Carbon-14 Urea), Administer 1 uCi, Orally, ONE TIME. Renal Cortical Imaging Uo23i-IPBC (Vjvedrsrzs05z-roqlcicewjnxyeatnr acid), Administer 5mCi, IV, ONETIME. Renal Perfusion Imaging Ec56c-DSPR (Mesyehjmnt29v-zuzqvszoio-jsdehitv-novxakqkjma), Administer 15mCi, IV, ONE TIME. OR Jw46x-TRF3 (Pdtbynucoe16o-fkhxxnhhxslkswzgklgwpqp), Administer 5mCi, IV, ONE TIME. Renogram Imaging Mc34f-DJJR (Nitstoahen05h-dnktqulnhm-aaureeyc-tbvfvjvijsu), Administer 5mCi, IV, ONE TIME. OR Tm07o-GAH3 (Lwfglbmgyj01f-fgnjzqxrqblwabstqabkxln), Administer 5mCi, IV, ONE TIME. Renogram with Flow Imaging Ty23l-JOMX (Aakwpusghz19f-hurvwqhdhv-lrdouzgh-ftcktnatapn), Administer 5mCi, IV, ONE TIME. OR Uz73y-TLL8 (Wodcrkfykf35i-ymxxhcgmdicgyjvvlfefuyq), Administer 5mCi, IV, ONE TIME. Salivary Imaging Tc-99m Pertechnetate (Dqrakikndz16b-spepnhgwuvpnn), Administer 5mCi, Orally, ONE TIME. Shunt Patency Imaging Tz91a-UUVY (Ytqccuvkra68z-vzfskikfzy-evtocvkx-ynitehyodqo), Neuroradiologist to administer 500uCi, intra-shunt reservoir, ONE TIME. Substernal Thyroid Imaging I-131 Na Iodide (Iodide-131 Na Iodide), Administer 100 uCi, Orally, ONE TIME. Hr33q-DEN Imaging Fc94p-Cgspmwo (Btsovmincx80l-Uddohkc), Administer at least 15mCi, up to 20mCi, heparanized WBC, IV, ONE TIME. Testicular Imaging Tc-99m Pertechnetate (Zymtacatlt44m-ighdwvmbgcpdf), Administer 15mCi, IV, ONE TIME. Thallium Whole Body Scan Imaging Tl-201 (Thallium Chloride-201), Administer 3mCi, IV, ONE TIME. Thyrogen Injection Thyrogen (thyrotopin natividad), Administer 0.9mg, deep IM, every 24 hours for 2 doses. Thyroid Imaging Tc-99m Pertechnetate (Aaufhsabxp43a-enqxqttntzhrp), Administer 5mCi, IV, ONE TIME. Thyroid Scan/Uptake I-123 Na Iodide (Iodide-123 Na Iodide), Administer at least 200 uCi, up to 400 uCi, Orally, ONE TIME. Thyroid Uptake I-131 Na Iodide (Iodide-131 Na Iodide), Administer at least 5 uCi, up to 25 uCi, Orally, ONE TIME. Vasotec/Enalaprilat Renal Imaging Ys83h-IFBM (Hydoezstzn05t-ialbxteqmx-ihgeuzku-hmacuphlltb), Administer 5mCi, IV, ONE TIME. AND Administer Enalaprilat (Vasotec) 0.04mg/kg with a maximum dose of 2.5mg. Dilute to 5mL total volumewith normal saline and infuse via infusion device over 5 minutes. OR Le67b-QLK3 (Flihmkhajc21m-cctxfurpcjwdiovibyjxbkk), Administer 5mCi, IV, ONE TIME. AND Administer Enalaprilat (Vasotec) 0.04mg/kg with a maximum dose of 2.5mg. Dilute to 5mL total volumewith normal saline and infuse via infusion device over 5 minutes. Venography Imaging NaPYP (sodium pyrophosphate) AND Tc-99m Pertechnetate (Bzjsvhtufb14i-akpbqxkwwotpy), Administer 6mg NaPYP, IV, ONE TIME AND Administer 15mCi Yl35i-mfooucpxwtckz, IV, ONE TIME. Whole Body I-131 Imaging I-131 Na Iodide (Iodide-131 Na Iodide), Administer 3 mCi, Orally, ONE TIME. Pediatric Procedures & Dosages: o Note: Radiopharmaceuticals dosages with a range are determined by auto salvage worker calibration PROCEDURE DOSAGE Bone Scan Imaging (Whole Body, Limited, 3-Phase, or SPECT) Vr01u-AJB (Xlrmoizhlm81h-mcbwikjhq diphosphonate), Administer 0.25mCi/kg with at least 1mCi, up to 20mCi, IV, ONE TIME. Brain Imaging Jd88x-QVZE (Tvaffvlsyd93e-sgemgelqxv-pmjlyxye-zyanktashik), Administer 0.8mCi/kg with at least 5mCi, up to 20mCi, IV, ONE TIME. Cisternogram Imaging In-111 DTPA (Indium-111 rdumwsjbwy-relhyfug-xpjrjjwmefu), Neuroradiologist to administer 4uCi/kg with at least 50uCi, up to 300uCi, Intrathecally, ONE TIME. Cystogram Imaging Tc-99m Pertechnetate (Cwhnlvidzj20v-wxpiiwlokngab) Administer 1mCi, intra-mcguire catheter, ONE TIME AND Administer 500ml-1000ml NS, intra-mcguire catheter, ONE TIME. Diuretic Renal Imaging Ne93v-GYHP (Dfqnyuyfhk37a-ckocxzaelx-polhanis-lihfygdwwdn), Administer 0.2mCi/kg with at least 2.5mCi, up bp96tTq , IV, ONE TIME. AND Administer Lasix (furosemide), 1mg/kg, up to 40mg, IV push over 2 minutes, ONE TIME. OR Ky48w-DGX4 (Upziumohom77m-tewwuxjjlanbhyfncxfyfzp), Administer 0.1mCi/kg with at least 1mCi, up to 5mCi, IV, ONE TIME. AND Administer Lasix (furosemide), 1mg/kg, up to 40mg, IV push over 2 minutes, ONE TIME. Diverticulum/Meckel's Imaging Tc-99m Pertechnetate (Iikkqdcebu13d- pertechnetate), Administer 0.05mCi/kg with at least 2.5mCi, up to 15mCi, IV, ONE TIME. Esophageal Reflux Imaging - <1yoa Yc32y-Idmwlf Colloid (Gsyhjnswbi34v-svqqkq colloid), Administer 0.1mCi for patients <3.5lbs, Orally, ONE TIME. OR Administer 0.2mCi for patients 3.5-6.5lbs, Orally, ONE TIME. OR Administer 0.3mCi for patients >6.5lbs, Orally, ONE TIME. *For all administrations, mix half of formula or breast milk feeding amount with radiopharmaceutical. Follow with remainder of feeding amount. Esophageal Reflux Imaging - >1yoa Me12z-Blmkgs Colloid (Zdqrugcmud21p-plctlw colloid), Administer 0.5mCi in 1 oz whole [...] TIME. Gastric Empty Imaging - Liquid Meal Ml86d-Yiktpv Colloid (Dyvvijxecl28p-ttgsdj colloid), Administer0.5mCi in 300mL whole milk or formula, Orally, ONE TIME. Gastric Empty Imaging - Solid Meal Gu58e-Hwqxex Colloid (Nhfnydymns27x-xjlkyp colloid), Administer 500uCi in 4 oz egg beaters or in 1 package of cooked instant oatmeal, Orally, ONE TIME. GI Bleed Imaging Tc-99m Pertechnetate (Qcgomqynad97j-jnhnbdniwnpop), Administer 0.2mCi heparanized RBCs with at least 1mCi, up to 20mCi, IV, ONE TIME. Hemangioma Imaging Tc-99m Pertechnetate (Xazqziikmc08p-qvaxogypkfsxb), Administer 0.2mCi heparanized RBCs with at least 1mCi, up to 20mCi, IV, ONE TIME. Hepatobiliary Scan Imaging Tc-99m Mebrofenin (Bsabvztqdy22k-xohhbiifvq), Administer .05mCi/kg with a at least 1mCi, up to 5mCi IV, ONE TIME Hepatobiliary Scan with Ejection Fraction Imaging Tc-99m Mebrofenin (Hlbdjndori34n-hjdzplvmaq), Administer .05mCi/kg with a at least 1mCi, up to 5mCi IV, ONE TIME AND For immediate use - Sincalide (Kinevac) 0.02 mcg/kg IV, ONE TIME, diluted with NS to a total infused volume of 30 mLs. Infuse via an infusion device over 30 minutes. Hepatobiliary Scan with Pre-Treatment Imaging Tc-99m Mebrofenin (Ajdezqslaq39p- mebrofenin), Administer 0.05mCi/kg with a at least 1mCi, up to 5mCi IV, ONE TIME AND For immediate use - Sincalide (Kinevac) 0.01 mcg/kg IV, ONE TIME, diluted with NS to a total infused volume of 5 mLs., IV push over 5 minutes. Hot PYP Bone Imaging Jt20s-JsRKY (Gevesffjxp49y-bqbljd pyrophosphate), Administer 0.6mCi/kg, with at least 2.5mCi, up to 20mCi IV, ONE TIME. Hot PYP Cardiac Imaging Ls95s-CcPDB (Jpradpdsic35a-gjymhq pyrophosphate), Administer 0.6mCi/kg, with at least 2.5mCi, up to 20mCi IV, ONE TIME. In-111 WBC Imaging In-111 Oxine (Indium-111 Oxine), Administer 20uCi/kg with at least 50uCi, up to 300uCi, heparanized WBC, IV, ONE TIME. Liver/Spleen Imaging Sl55g-Ctyffo Colloid (Vjyasvcnpj08d-nivazk colloid), Administer 0.05mCi/kg with at least 0.4mCi, up to 3mCi, IV, ONE TIME. Lung Perfusion Imaging Tc-99m MAA (Tjornhelup32g-rjmfrlgttjkfdyc albumin), Administer 0.03mCi/kg, with at least 0.4mCi, [...] Orally, ONE TIME. MUGA/RVG Imaging Tc-99m Pertechnetate (Zyohplijdg92d-olrccorzkgoun), Administer 0.2mCi/kg heparanized RBCs with at least 1mCi, up to 20mCi, IV, ONE TIME. Myocardial Rest Imaging - SPECT Imaging Cg31t-Wrojdmj (Ifutqqwjes36p-Lcblghs), Administer at least 5.18mCi, up to 6.08mCi, IV, ONE TIME. Consult authorized user prior to administration. Dosage based on Trujillo's Rule (age+1/age+7)*8 Myocardial Stress Imaging - SPECT Imaging Pq23d-Pfqaxtk (Nfftwmpveo01e-Jmzntip), Administer at least 15.5mCi, up to 18.24mCi, [...] to 6mCi, IV, ONE TIME. Parathyroid Imaging Bj91f-Qulvueuki (Yndhtfkhvn72m-snaismuuc), Administer at least 5.18mCi, up to 6.08mCi, IV, ONE TIME. Dosage based on Trujillo's Rule (age+1/age+7)*8 PET/CT Brain Imaging F18-FDG (Ewevdgex90-zgptukykvavchzces), Administer 0.11mCi/kg with at least 1mCi, up to 10mCi, IV, ONE TIME. PET/CT Limited, Standard, or Whole-Body Oncology Imaging F18-FDG (Bznvcouf15- flurodeoxyglucose), Administer 0.11mCi/kg with at least 2mCi, up to 10mCi, IV, ONE TIME. Renal Cortical Imaging Sp49o-CKEH (Nqwbsaifvz79x-bdglhbenrfcujgnlgh acid), Administer 0.05mCi/kg with at least 0.5mCi, up to 2.5mCi, IV, ONE TIME. Renogram Imaging Qj94s-ZONQ (Moyujbcska12h-uujernmeix-htturxql-wowgcisgqpf), Administer 0.2mCi/kg with at least 2.5mCi, up ii02iBt OR Lo03b-SAF6 (Yawlntgswd99i-igmvapgzdeqtuqcotpqzuhs), Administer 0.1mCi/kg with at least 1mCi, up to 5mCi, IV, ONE TIME. Renogram with Flow Imaging Wu98x-ZSEB (Dfvfzhazvu68e-lnlydmaram-bytygblf-iwpbtotozdi), Administer 0.2mCi/kg with at least 2.5mCi, up yv47tCa OR Kn00q-MAP4 (Jigszljyhv39a-jogjnpiqwwfnpapzwfkaitr), Administer 0.1mCi/kg with at least 1mCi, up to 5mCi, IV, ONE TIME. Lx89d-ONU Imaging Zv94k-Aotgzkj (Stahwebbjb30z-Lbmshhz), Administer 0.6mCi/kg heparanized WBC, IV, ONE TIME. Confirm calculated dose with nuclear medicine physician prior to injection. Testicular Imaging Tc-99m Pertechnetate (Anxuppbddv20n-amiqnnttzuyyz), Administer 0.4mCi/kg with atleast 5mCi, up to 15mCi, IV, ONE TIME. Thyroid Imaging Tc-99m Pertechnetate (Jgtdeunwcm33f-unjlrobaqztdr), Administer 0.07mCi/kg with at least 1mCi, up to 5mCi, IV, ONE TIME. Thyroid Scan/Uptake I-123 Na Iodide (Iodide-123 Na Iodide), Administer at least 100uCi, up to 200uCi, Orally, ONE TIME. Thyroid Scan/Uptake I-131 Na Iodide (Iodide-131 Na Iodide), Administer at least 2uCi, up to 20uCi, Orally, ONE TIME. Vasotec/Enalaprilat Renal Imaging [id number] (Myeyxtjnex10b-[id number]-qckejkvo-mriaqiyxsqs), Administer 0.2mCi/kg with at least 2.5mCi, up [id number] AND Administer Enalaprilat (Vasotec) 0.03mg/kg, up to 2.5mg. Dilute to 5mL total volume with normal saline and infuse via infusion device over 5 minutes. OR [id number] ([id number]-vdhjmdswnnttieyoiyudwyp), Administer 0.1mCi/kg with at least 1mCi, up [...] and Pharmacy & Therapeutics Committee Date: 04/2018 CONSULTANT documented in this encounter Plan of Treatment Upcoming Encounters Date Type Department Care Team (Late st Contact Info) Description 03/19/2025 10:45 AM CDT Appointment [facility] [place] [address] [place] [phone] Caron Mohan MD [address] [place] [address] 03/19/2025 11:30 AM CDT Office Visit [facility] Oncology and Hematology [place] [address] [place] [address] Caron Mohan MD [address] [place], [place] [phone] [place] [address] [place] [address] documented as of this encounter Procedures Procedure Name Priority Date/Time Associated Diagnosis Comments MAMMO POST PROCEDURE MAMMO LEFT Routine 11/22/2018 10:43 AM CRM CONSULTANT Invasive ductal carcinoma of left breast PATHOLOGY Pathology 11/22/2018 10:15 AM CRM CONSULTANT Invasive ductal carcinoma of breast, left SENTINEL LYMPH NODE BIOPSY 11/22/2018 9:27 AM CRM CONSULTANT Invasive ductal carcinoma of breast, left BREAST LUMPECTOMY 11/22/2018 9:2 7 AM CRM CONSULTANT Invasive ductal carcinoma of breast, left MAMMO US GUIDED BREAST LOCAL Routine 11/22/2018 8:55 AM CRM CONSULTANT Invasive ductal carcinoma of left breast NM LYMPHOSCINTIGRAPHY Routine 11/22/2018 8:28 AM CRM CONSULTANT Invasive ductal carcinoma of left breast documented in this encounter Results * MAMMO POST PROCEDURE MAMMO LEFT (11/22/2018 10:43 AM CRM CONSULTANT) Anatomical Region Laterality Modality Breast Left Mammography 11/22/2018 7:37 AM CRM CONSULTANT Impressions 11/25/2018 1:04 PM CRM CONSULTANT IMPRESSION: Technically successful ultrasound-guided needle localization and surgical excision of the left breast as described above. DICTATION LOCATION: [facility] Narrative 11/25/2018 1:04 PM [facility] ULTRASOUND-GUIDED NEEDLE LOCALIZATION OF THE LEFT BREAST [...] left breast as described above. DICTATION LOCATION: [facility] Ita Vazquez MD MAMMO ORDERABLES * PATHOLOGY (11/22/2018 10:15 AM CRM CONSULTANT) CASE REPORT Surgical Pathology Report ? Case: [id number] ? Authorizing Provider: ??Ita Vazquez MD ? Collected: ? 11/22/2018 10:15 AM ? Ordering Location: ? [facility] OUTPATIENT SURGERY ?? Received: ?11/22/2018 10:18 AM ? [facility] [address] OLNG ? Pathologist: ? Joaquín Holcomb MD ? Specimens: ?? A) - Axilla, left, senitinal lymph nodes ? B) - Breast, left, lumpectomy short stitch superior long stitch lateral clip at deep ? margin ? C) - Breast, left, re-excision medial to deep margin stitch at new margin ? 3:27 PM [facility] [employer] ADDENDUM 1 A request for Oncotype Dx testing was received 12/11/[address] Mohan. This test will be performed on tissue from case [id number]. The case report, slides, and blocks for this case were retrieved from archives. The pathologist reviewed the original pathology report, examined candidate slides, and selected the most appropriate block(s). This selected material is forwarded to [facility] where the test will be performed. Results will be directly issued to the treating physician by the laboratory performing the test. 3:27 PM [facility] [employer] [facility] Addendum electronically signed by Joaquín Holcomb MD on 12/11/2018 at 3:27 PM FINAL DIAGNOSIS A. 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 B. Breast, left, lumpectomy: - Invasive ductal carcinoma, with the following features: 1. Size: 1.3 cm. 2. Donnie score: 6/9. 3. Margins: Invasive carcinoma 3 mm from the posterior margin. 4. Lymphvascular invasion: Not definitively identified. 5. Stage: pT1c snN1mi. 6. Biomarkers: HER2 1+ (ER and [place] positive performed previously on [id number]). - Radial scar. - Intraductal papilloma (0.1 [...] breast tissue, negative for carcinoma. 3:27 PM [facility] LABORATORY [facility] IMEN DESCRIPTION (A) Axilla, left, sentinel lymph nodes, collected at 1015; (B) breast, left, lumpectomy, short stitch superior, long stitch lateral, clip at deep margin, collected at 1023; (C) breast, left, re-excision medial to deep margin, stitch at new margin, collected at 1025. 3:27 PM [facility] LABORATORY [facility] OPERATIVE PROCEDURE Left breast lumpectomy with needle localization at 0830 am. Nuclear medicine at 0745, needle localization at 0830. Left axillary sentinel lymph node biopsy with nuclear medicine at 0745 am. 3:27 PM [facility] CLINICAL DIAGNOSIS Invasive ductal carcinoma of breast, left (C50.912). 3:27 PM [facility] GROSS DESCRIPTION The specimen is received [...] 2; B5 to B8-level 3; B9 to U70-ppylr 4; B13 to O55-jyrun 5; B17 to P59-khglr 6; B21 and 22-inferior margin perpendicularly sectioned. [...] formalin at 1100. MANISH/sania 9 3:27 PM [facility] MICROSCOPIC DESCRIPTION Slides are received labeled [id number] and Jolene Cedillo. The left axillary sentinel [...] is negative for carcinoma. 9 3:27 PM [facility] LABORATORY SERVICES [facility] SPECIAL AND IMMUNOPEROXIDASE STAINS Diagnosis: Invasive ductal [...] negativity on decalcified tissues. 9 3:27 PM [facility] SYNOPTIC REPORT INVASIVE CARCINOMA OF THE [...] Lymph Nodes Examined: ?2 ? Number of Beaver Nodes Examined: ?2 PATHOLOGIC STAGE CLASSIFICATION (pTNM, AJCC 8th Edition) ?? TNM Descriptors: ?Not applicable ?? Primary Tumor (Invasive Carcinoma) (pT): ?pT1c ?? Regional Lymph Nodes (pN): ? Modifier: ?(sn): Only sentinel node(s) evaluated. ? Category (pN): ?pN1mi 9 3:[address] [facility] COMMENT Special stain and/or immunohistochemical results are interpreted with controls that demonstrate appropriate staining reactions. Note on use of immunocytochemistry reagents: This test was developed and its performance characteristic determined by [facility], Department of Laboratory Medicine. [...] WF, WB and WH are performed by [address], [address]. All other case types are performed by [address] [facility], [address]. 9 3:[address] [facility] Tissue (Axilla, left) Collection / Unknown 11/22/2018 10:15 AM CRM CONSULTANT 11/22/2018 10:18 AM CRM CONSULTANT Tissue specimen (specimen) LEFT BREAST STRUCTURE / Unknown 11/22/2018 10:23 AM CRM CONSULTANT 11/22/2018 10:35 AM CRM CONSULTANT Tissue specimen (specimen) LEFT BREAST STRUCTURE / Unknown 11/22/2018 10:25 AM CRM CONSULTANT 11/22/2018 10:55 AM CRM CONSULTANT Ita Vazquez MD PATHOLOGY/CYTOLOGY O RDERABLES [facility] [id number] [address] [place] [place] [address] * MAMMO US GUIDE NEEDLE PLACEMENT (11/22/2018 8:55 AM CRM CONSULTANT) Anatomical Region Laterality Modality Breast N/A Ultrasound 11/22/2018 9:56 AM CRM CONSULTANT Impressions 11/25/2018 1:04 PM CRM CONSULTANT IMPRESSION: Technically successful ultrasound-guided needle localization and surgical excision of the left breast as described above. DICTATION LOCATION: [facility] 11/25/2018 1:04 PM CRM CONSULTANT ULTRASOUND-GUIDED NEEDLE LOCALIZATION OF THE LEFT BREAST [...] ORDERABLES * NM LYMPHOSCINTIGRAPHY (11/22/2018 8:28 AM CRM CONSULTANT) Anatomical Region Laterality Modality Nuclear Medicine 11/22/2018 8:28 AM CRM CONSULTANT Impressions 11/22/2018 8:33 AM CRM CONSULTANT IMPRESSION: ??Beaver lymph node identified and marked in the axilla. Dictated by Dr. Fortino Islas MD DICTATION LOCATION: 1 Narrative 11/22/2018 8:33 AM CRM CONSULTANT SENTINEL LYMPH NODE IMAGING DATE: 11/22/2018 8:28 AM HISTORY: Invasive ductal carcinoma of the left breast. PROCEDURE: Skin preparation with Betadine and alcohol. Technetium Lymphoseek was injected as 2 intradermal injections around the periareolar region. Beaver lymph node in the axilla identified and marked. RADIOPHARMACEUTICAL: 0.52 mCi 99m technetium Lymphoseek Procedure Note Fortino Islas MD - 11/22/2018 SENTINEL LYMPH NODE IMAGING DATE: 11/22/2018 8:28 AM HISTORY: Invasive ductal carcinoma of the left breast. PROCEDURE: Skin preparation with Betadine and alcohol. Technetium Lymphoseek was injected as 2 intradermal injections around the periareolar region. Beaver lymph node in the axilla identified and marked. RADIOPHARMACEUTICAL: 0.52 mCi 99m technetium Lymphoseek IMPRESSION: Beaver lymph node identified and marked in the [...] Pain, Moderate, Routine Given 11/22/2018 11:55 AM CRM CONSULTANT 1 Tablet lactated Ringers solution IV, at 150 mL/hr, PRE-PROCEDURE CONTINUOUS, Starting on Sun11/22/18 at 0645, Until Sun11/22/18 at 1427, Routine, Pre-op Continue from Pre-Op 11/22/2018 9:38 AM CRM CONSULTANT New Bag 11/22/2018 9:18 AM CRM CONSULTANT 150 mL/hr lactated Ringers solution IV, at 125 mL/hr, POST-PROCEDURE CONTINUOUS, Starting on Sun11/22/18 at 0930, Until Sun11/22/18 at 1427, Routine, PACU lidocaine PF 1 % (XYLOCAINE MPF) injection 30 mL 30 mL, Infiltration, ONE TIME ONLY, 1 dose, On Sun11/22/18 at 0900, Routine Admin by Another Clinician (Comment) 11/22/2018 8:45 AM CRM CONSULTANT 4.5 mL Operative Site lidocaine PF 2 % (XYLOCAINE MPF) injection 0.3 mL 0.3 mL, Infiltration, PRE-PROCEDURE ONCE, Starting on Sun11/22/18 at 0642, Until Sun11/22/18 at 1427, Routine, Pre-op Given 11/22/2018 6:57 AM CRM CONSULTANT 0.3 mL methylene blue (UROLENE BLUE) 1 % (10 mg/mL) injection 50 mg 50 mg (5 mL), See Admin Instructions, ONE TIME ONLY, 1 dose, On Sun11/22/18 at 0900, Routine Admin by Another Clinician (Comment) 11/22/2018 8:45 AM CRM CONSULTANT 0.5 mg Operative Site morphine injection 2 [...] Started by Another Clinician 11/22/2018 8:45 AM CRM CONSULTANT 0.25 mEq Operative Site documented in this encounter Active and Recently Administered Medications Times are shown in CRM CONSULTANT. Scheduled Medication Order 11/20/2018 11/21/2018 11/22/2018 ceFAZolin [...] Sun11/22/18 at 0900, Routine 0845 (Admin by [facility] Clinician (Comment) - Provider: Vicky Lugo, RT - Comment: Infiltrate administered by Fortino Colemna MD) lidocaine PF 2 % (XYLOCAINE MPF) [...] Sun11/22/18 at 0900, Routine 0845 (Admin by [facility] er Clinician (Comment) - Provider: Vicky Lugo, RT - Comment: Infiltrate administered by Fortino Coleman MD) sodium bicarbonate 4.2 % (0.5 mEq/mL) syringe 2.5 mEq (COMPLETED) 2.5 mEq, See Admin Instructions, ONE TIME ONLY, 1 dose, On Sun11/22/18 at 0900, Routine 0845 (Started by [facility] Clinician - Provider: Vicky Lugo, RT - [...] 1155 (Given - Provid er: Mirella Malone, TAO) isosulfan blue (LYMPHAZURIN) injection (CANCELED) INTRA-PROCEDURE PRN, [...] MD) documented in this encounter Care Teams Books Salesperson Relationship Specialty Start Date End Date Francisco Long MD PCP - General Internal Medicine 06/27/18 documented as of this encounter
--- OUTSIDE RECORDS SUMMARY | 2024-11-16 15:29 | XMS_ITS | Encounter Summary ---
Author Organization [facility] Address [address] [place] [address] Care Team Providers Care Head Teller Name Role Phone Francisco Long MD Primary Care Provider Unavailabl e Reason for Visit * Reason Comments Follow Up 3 months Distress sc reening Encounter Details Date Type Department Care Team (Late st Contact Info) Description 05/14/2019 9:15 AM CDT Office [facility] [address] [place] [address] Caron Mohan MD [address] [place], [place] [phone] Malignant neoplasm of upper-inner quadrant of left [...] Mohan MD - 05/14/2019 9:38 AM CDT [facility] Oncology and Hematology Date of Service: 05/14/2019 [...] clot after knee surgery. DEXA 2017 at [facility] but unable to access results. INTERVAL [...] AM performed by Ita Vazquez MD at [facility] CC OR ??? [place] LAP,LYMPH NODE BX N/A 07/09/2018 PELVIC LYMPH NODE STAGING DAVINCI SI performed by Micki Cadena MD at [facility] OR [facility] ??? [place] LAP,RMV ADNEXAL STRUCTURE Bilateral 07/09/2018 SALPINGO-OOPHORECTOMY DAVINCI SI performed by Micki Cadena MD at [facility] OR [facility] ??? [place] LAPAROSCOPY W TOT HYSTERECT UTERUS 250 GRAM OR LESS N/A 07/09/2018 HYSTERECTOMY TOTAL DAVINCI SI performed by Micki Cadena MD at [facility] OR [facility] ??? [place] MASTECTOMY, PARTIAL Left 11/22/2018 LEFT BREAST LUMPECTOMY WITH NLOC @ 8:30 AM performed by Ita Vazquez MD at [facility] CC OR Social History [...] file Gets together: Not on file Attends jain service: Not on file Active member of [...] or rashes. Psych: No depression or anxiety. 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 Breasts: [...] following features: 1. Size: 12 mm. 2. Olalla score: 6/9. 3. Lymphvascular invasion: Not identified. 4. Stage: pT1c. - Biomarker results: ER 8/8 (positive), [place] 8/8 (positive), Her2 IHC 1+ (negative). - Low to intermediate grade ductal carcinoma in situ, minute focus, with associated calcifications. FINAL DIAGNOSIS A. 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 ?? B. Breast, left, lumpectomy: - Invasive ductal carcinoma, with the following features: 1. Size: 1.3 cm. 2. Olalla score: 6/9. 3. Margins: Invasive carcinoma 3 mm from the posterior margin. 4. Lymphvascular invasion: Not definitively identified. 5. Stage: pT1c snN1mi. 6. Biomarkers: HER2 1+ (ER and [place] positive performed previously on [id number]). - Radial scar. - Intraductal papilloma (0.1 [...] Cedillo is a 73 y.o. woman with [id number] breast cancer, ER+/KY+/HER2-, NS 6. Since she has had lumpectomy done, she will need adjuvant XRT. Dr. John Ag in [place] has completed her radiation. Since her tumor is strongly ER/KY positive, [...] 10:45 AM CDT Appointment [facility] [place] [address] [place] [phone] Caron Mohan MD [address] [place], [place] [phone] 03/19/2025 11:30 AM CDT Office Visit [facility] Oncology and Hematology [place] [address] [place] [address] Caron Mohan MD [address] [place], [place] [phone] [place] [address] [place] [address] documented as of this encounter Visit Diagnoses Diagnosis Malignant neoplasm of upper-inner quadrant of left breast in female, estrogen receptor positive- Primary Vitamin D deficiency Unspecified vitamin D deficiency 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 rheumatoid factor documented in this encounter Care Teams Head Teller Relationship Specialty Start Date End Date Francisco Long MD PCP - General Internal Medicine 06/27/18 documented as of this encounter
--- OUTSIDE RECORDS SUMMARY | 2024-11-16 15:29 | XMS_ITS | Encounter Summary ---
Author Organization [facility] Address [address] [place] [address] Care Team Providers Care Devulcanizer Head Name Role Phone Francisco Long MD Primary Care Provider Unavailabl e Reason for Visit * Reason Onset Date Comments Results 09/24/2018 Encounter Details Date Type Department Care Team (Late st Contact Info) Description 09/24/2018 Telephone [facility] BREAST SURGERY - [facility] [address] [place] [address] [place] [address] [address] [place] [address] Results Social History Tobacco Use [...] following features: 1. Size: 12 mm. 2. Westover score: 6/9. 3. Lymphvascular invasion: Not identified. 4. Stage: pT1c. - Biomarker results: ER 8/8 (positive), [place] 8/8 (positive), Her2 IHC 1+ (negative). - Low to intermediate grade ductal carcinoma in situ, minute focus, with associated calcifications. LM Ita Vazquez MD documented in this encounter Plan of Treatment Upcoming Encounters Date Type Department Care Team (Late st Contact Info) Description 03/19/2025 10:45 AM CDT Appointment [facility] [address] [place] [phone] Caron Mohan MD [address] [place], [place] [id number] 03/19/2025 11:30 AM CDT Office Visit [facility] Oncology and Hematology [address] [place] [address] Caron Mohan MD [address] [place], [place] [phone] [place] [address] [place] [address] documented as of this encounter Visit Diagnoses Not on filedocumented in this encounter Care Teams Devulcanizer Head Relationship Specialty Start Date End Date Francisco Long MD PCP - General Internal Medicine 06/27/18 documented as of this encounter
--- OUTSIDE RECORDS SUMMARY | 2024-11-16 15:29 | XMS_ITS | Encounter Summary ---
Author Organization [facility] Address [address] [place] [address] Care Team Providers Care Procurement Cost Coordinator Name Role Phone Francisco Long MD [...] Left [place] [address] [place] [address] Referral ID Status Reason Start Date Expiration Date Visits Re quested Visits Authorized [id number] 10/02/2018 1 1 Encounter Details Date Type Department Care Team (Late st Contact Info) Description 11/22/2018 9:40 AM [facility] - 11/22/2018 11:14 AM [facility] Surgery [facility] [address] [place] [address] [place] [address] [place] [address] LEFT BREAST LUMPECTOMY WITH NLOC [...] Comments Blood Pressure 138/70 11/22/2018 11:14 AM [facility] [facility] [facility] Pulse 75 11/22/2018 11:14 AM [facility] [facility] [facility] Temperature 36.3 ??C (97.4 ??F) 11/22/2018 10:[address] Respiratory Rate 12 11/22/2018 11:14 AM [facility] [facility] [facility] Oxygen Saturation 100% 11/22/2018 11:14 AM [facility] [facility] [facility] Inhaled Oxygen Concentration - - Weight 83 kg (183 lb) 11/22/2018 6:46 AM [facility] [employer] [facility] [facility] Height 170.2 cm (5' 7 ) 11/22/2018 6:46 AM [facility] [employer] [facility] [facility] Body Mass Index 28.66 11/22/2018 6:46 AM [facility]AIL [facility] [facility] [facility] documented in this encounter Discharge Instructions * Discharge Instructions* Ita Vazquez MD - 11/22/2018 11:02 AM [facility] [address] [place] [address] Post operative instructions: Activity: - Walk around [...] call this number to be connected to theNOZA service. [place] [facility] documented in this encounter Medications at Time [...] ??? 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 AZ LAP,LYMPH NODE BX N/A 07/09/2018 PELVIC LYMPH NODE STAGING DAVINCI SI performed by Micki Cadena MD at [facility] ??? AZ LAP,RMV ADNEXAL STRUCTURE Bilateral 07/09/2018 SALPINGO-OOPHORECTOMY DAVINCI SI performed by Micki Cadena MD at [facility] OR [facility] ??? AZ LAPAROSCOPY W TOT HYSTERECT UTERUS 250 GRAM OR LESS N/A 07/09/2018 HYSTERECTOMY TOTAL DAVINCI SI performed by Micki Cadena MD at [facility] ALLERGY: Allergies Allergen Reactions ??? Atorvastatin Muscle [...] with left additional views and ultrasound at [facility]- there is a new 16 mm irregular [...] pT1c. - Biomarker results: ??ER 8/8 (positive), AZ 8/8 (positive), Her2 IHC 1+ (negative). 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 ASSESSMENT AND PLAN: ? Stage T1 N0 cancer of the left breast. For lump/SLN. Ita Vazquez MD, FACS 11/22/2018 9:28 AM [place] [facility] documented in this encounter OR Notes * [...] Signed: Ita Vazquez MD 11/22/2018, 10:59 AM [place] [facility] documented in this encounter Miscellaneous Notes * Treatment Plan - Karol George, [facility] - 11/22/2018 7:52 AM CST IMAGING SERVICES- NUCLEAR MEDICINE MEDICATION and FLUSH PROTOCOL [facility] ORDERS ARE ENTERED ???PER PROTOCOL?? [...] dosages with a range are determined by tin roller hot mill calibration PROCEDURE DOSAGE Bone Marrow Imaging In-111 Chloride (Indium-111 Chloride), Administer 2mCi, IV, ONE TIME. OR Pt30f-Egymzq Colloid (Hsaugzdryb97s-rplonz colloid), Administer 8mCi Tc99m- sulfur colloid, IV, ONE TIME. Bone Pain Therapy - Quadramet Sm-153 (Samarium-153), Administer 1mCi/kg, IV, ONE TIME. Bone Pain Therapy - Xofigo Ra-223 Xofigo, Administer 1.49uCi/kg, IV, ONE TIME. AND Administer 5 mL sodium chloride, IV, repeated up to 5 times for a total of 30mL. Bone Scan Imaging (Whole Body, Limited, 3-Phase, or SPECT) Rw69g-UKW (Xbvjrhsnas69r-etqrjaobe diphosphonate), Administer 25mCi, IV, ONE TIME. OR Ac92e-MMC (Mcbxcpputd81y-gryvtmqnbmbpfrpl diphosphonate), Administer 25mCi, IV, ONE TIME. Brain Imaging Cv15h-ZOUQ (Yjandrntpl95c-kcsilpialn-qarszlkn-ttvydaglblz), Administer 20mCi, IV, ONE TIME. Brain SPECT Imaging Mv21b-DOJB (Mopzcwyopq46s-hehmdaclof-oflibchn-qkjdjsvnokk), Administer 30mCi, IV, ONE TIME. OR Vl77s-DQVMF (Ceretec) (Vomsntfnak12t-eceouzmcwumdhbdiauv amine oxime), Administer 20mCi, IV, ONE TIME. OR Tl-201 (Thallium Chloride-201), Administer 6mCi, IV, ONE TIME. Cerebral Flow Imaging Fb71i-VVBE (Mdoysqbasd75k-lgejaojprf-xtkmbztx-mpfoeophybe), Administer 25mCi,IV, ONE TIME. Cisternogram Imaging In-111 DTPA (Indium-111 lnctxurooz-zviltcsd-tprehnlfowt), Neuroradiologist to administer 500uCi, Intrathecally, ONE TIME. Cystogram Imaging Tc-99m Pertechnetate (Mzqppzjaij12g-iucaqqcbemzhm) Administer 1mCi Gz06u-wisvrtbsvgmha, intra-mcguire catheter, ONE TIME AND 1000ml NS, intra-mcguire catheter, ONE TIME. DaTscan Imaging I-123 Ioflupane (Iodine-123 ioflupane), Administer 5mCi, IV, ONE TIME. AND Administer SSKI (Potassium Iodide) drops, 130mg, Orally, ONE TIME one hour prior to radiopharmaceutical injection. Diuretic Renal Imaging Tk75f-JZOT (Rlxlhvywrl77d-zqwyrilcxn-qdyephbi-jkztnbmanwn), Administer 5mCi,IV, ONE TIME. AND Administer Lasix (furosemide), 1mg/kg, IV push over 2 minutes, ONE TIME. Maximum dose of 40mg. OR Jf12g-KOW4 (Hezevvkctp96x-nffleyspftrwqrbykwocfqm), Administer 5mCi, IV, ONE TIME. AND Administer Lasix (furosemide), 1mg/kg, IV push over 2 minutes, ONE TIME. Maximum dose of 40mg. Diverticulum/Meckel's Imaging Tc-99m Pertechnetate (Gwcqueewmo18z- pertechnetate), Administer 15mCi,IV, ONE TIME. Esophageal Reflux Imaging Wq91g-Fuemvq Colloid (Aomhcjpdud37c-oifmtl colloid), Administer 1mCi in 1oz whole milk [...] TIME. Gastric Empty Imaging - Solid Meal Oc87d-Aspzpw Colloid (Ctwzmbijsz68x-okydvm colloid), Administer 500uCi in 4 oz egg beaters or in 1 package of cooked instant oatmeal, Orally, ONE TIME. Gastric Empty Imaging - Liquid Meal Uq67j-Gmovvj Colloid (Gjfutzcvdo93x-sjuqox colloid), Fjvgnapiqk705yEl in 300mL whole milk, Orally, ONE TIME. GFR Imaging Rr81k-CSBM (Sormsfxkvr02a-fhfclkeueu-tizjuvpp-xzsxpejybpx), Administer 3mCi, IV, ONE TIME. GI Bleed Imaging Tc-99m Pertechnetate (Einxoebxqw83y-gmpjjhausjvkq), Administer 22mCi heparanized RBCs, IV, ONE TIME. Hemangioma Imaging NaPYP (sodium pyrophosphate) AND Tc-99m Pertechnetate (Ujcaataduh46i-egccqggrqezrn), Administer 6mg PYP, IV, ONE TIME. AND Administer 20mCi Rp05y-tthhliwstpqwi, IV, ONE TIME. OR Tc-99m Pertechnetate (Vtddbpltng03n-zkonwvquavvwq), Administer 22mCi heparanized RBCs, IV, ONE TIME. Hepatic Artery Perfusion Imaging TC-99m MAA (Tkrbprwvos62y-wepwovghfpatzah albumin), InterventionalRadiologist to administer 3 mCi in three divided doses of 1 mCi each, intra-arterial via catheter, ONE TIME. Hepatobiliary Scan Imaging Tc-99m Mebrofenin (Ozqardsybk10w-pxyopsdanz), Administer 5 mCi IV, ONE TIME *For inpatients only, if bilirubin >5mg/dL, Administer 8 mCi IV, ONE TIME *For inpatients only, if bilirubin > 8mg/dL, consult nuclear medicine physician prior to administering radiopharmaceutical Hepatobiliary Scan with Ejection Fraction Imaging Tc-99m Mebrofenin (Vcvvigmhzc87r-ionxieptoy), Administer 5 mCi IV, ONE TIME. *For [...] Hepatobiliary Scan with Pre-Treatment Imaging Tc-99m Mebrofenin (Esjvdxvwpu16n- mebrofenin), Administer 5 mCi IV, ONE TIME. [...] over 5 minutes. Hot PYP Bone Imaging Tx34g-WcUZA (Rmsqfqnigg57u-uxwevk pyrophosphate), Administer 15mCi, IV, ONE TIME. Hot PYP Cardiac Imaging Xl40a-ZmPHU (Odaomywoyh26w-eerkri pyrophosphate), Administer 15mCi, IV, ONETIME. Hot PYP Muscle Imaging Fv24n-YtSDN (Nwcskmvkcb92w-bibhsj pyrophosphate), Administer 20mCi, IV, ONE TIME. In-111 WBC Imaging In-111 Oxine (Indium-111 Oxine), Administer at least 400uCi, up to 800uCi, heparanized WBC, IV, ONE TIME. Lacrimal Imaging Cg91j-Xeuegy Colloid (Eqvitoexlc89l-xsnfpm colloid), Administer 2 drops per eye ka672rSs/drop, Droplet, ONE TIME. Liver Imaging Be41o-Ayneid Colloid (Bzbderuoaz27x-hhcitg colloid), Administer 6mCi, IV, ONE TIME. Lung Perfusion - Obese Patient Imaging Tc-99m MAA (Ltmesicqes37i-lkhhxnfrzirkbqu albumin), Administer 5mCi for patients > 35BMI, IV, ONE TIME. Lung Perfusion - Obese Patient Imaging Tc-99m MAA (Yamahcsmyx62n- macroaggregated albumin),Administer 3mCi for patients > 35BMI, IV, ONE TIME. Lung Perfusion Imaging Tc-99m MAA (Fobdbtlieb98f-bizzimusumyejtd albumin), Administer 4mCi, IV, ONETIME. Lung Perfusion - Patient Imaging Tc-99m MAA (Nngwibzhog26s- macroaggregated albumin), Administer 2mCi for patients , IV, ONE TIME. Lung Ventilation Imaging Xe-133 (Xenon-133), Administer at least 10 mCi, up to 30 mCi, inhalation, ONE TIME. Lymphoscintigraphy - Breast Cancer, Next Day Surgery Ql78s-Rpzycocbln (Vlgetwowft18r-multtregey), Administer 2mCi in 2 divided doses of 1mCi each, intradermal, ONE TIME. AND Lidocaine 4% (L.M.X.4) applied 30 minutes prior to injections, TOPICAL, ONE TIME PRN. Lymphoscintigraphy - Breast Cancer, Same Day Surgery Vx95q-Iwzujusqsk (Asmfqxempy34y-jnszpqprth), Administer 500uCi in 2 divided doses of 250uCi each, intradermal, ONE TIME. AND Lidocaine 4% (L.M.X.4) applied 30 minutes prior to injections, TOPICAL, ONE TIME PRN. Lymphoscintigraphy - Malignant Melanoma, Next Day Surgery Za67h-Mrrldbxhul (Ibmwwnsdrn30c-xpqzriqypg), Administer 2mCi in 4 divided doses of 0.5mCi each, intradermal, ONE TIME. AND Lidocaine 4% (L.M.X.4) applied 30 minutes prior to injections, TOPICAL, ONE TIME PRN. Lymphoscintigraphy - Malignant Melanoma, Same Day Surgery Iz41r-Bvtwzrpwpw (Ubifmjjuol40g-jgstqrlhpx), Administer 500uCi in 4 divided doses of 125uCi each, intradermal, ONE TIME. AND Lidocaine 4% (L.M.X.4) applied 30 minutes prior to injections, TOPICAL, ONE TIME PRN. Lymphoscintigraphy - Malignant Melanoma, Small Body Area, Next Day Surgery Pl06x-Qjlgrjjmfh (Rsxxjuxpjy54o-lhdzfocdtg), Administer 2mCi in 2 divided doses of 1mCi each, intradermal, ONE TIME. AND Lidocaine 4% (L.M.X.4) applied 30 minutes prior to injections, TOPICAL, ONE TIME PRN. Lymphoscintigraphy - Malignant Melanoma, Small Body Area, Same Day Surgery Un88q-Aylcjdffrn (Jnhokzfdpn12t-umrgbcvunx), Administer 500uCi in 2 divided doses of 250uCi each, intradermal, ONE TIME. AND Lidocaine 4% (L.M.X.4) applied 30 minutes prior to injections, TOPICAL, ONE TIME PRN. MIBG Imaging I-123 MIBG (Iodine-123 metaiodobenzylguandidine), Administer 10mCi, IV, ONE TIME. Microsphere Mapping Tc-99m MAA (Hasqgwckna48y-hszaarjicifvndn albumin), Interventional Radiologist to administer 4 mCi in two divided doses of 2 mCi each, intra-arterial via catheter, ONE TIME. MUGA/RVG Imaging Tc-99m Pertechnetate (Utnupzltnr00h-dmptdqslxmikt), Administer 22mCi heparanized RBCs, IV, ONE TIME. Myocardial Dual Isotope Imaging Tl-201 (Thallium Chloride-201) AND Ht18v-Xdtzjvt (Cklfjbcuwd76j-fdvcstn), Administer 3mCi Tl-201for resting images, IV, ONE TIME AND Administer 8mCi Pb44x-qlzhsma for stress images, IV, ONE TIME. Myocardial Planar Imaging Ib70e-Exaaamb (Wppsahqzmh42n-Ztpajrz), Administer 30mCi, IV, ONE TIME lisa images, ONE TIME for stress images. Myocardial Rest Imaging - SPECT Imaging Tl-201 (Thallium Chloride-201), Administer 4mCi, IV, ONE TIME. OR Ng74u-Bgktdnt (Pgylcloukl20w-Pzpjxrf), Administer 4mCi for patients <180 lbs, IV, ONE TIME. OR Gp05u-Ispsmki (Vlpwlcggkp09w-Thfgvrs), Administer 5mCi for patients 181-240 lbs, IV, ONE TIME. OR Cn77h-Aempmsh (Vbxclcrsmc30x-Bucfhxw), Administer 6mCi for female patients 241- 265 lbs, IV, ONE TIME. OR Dp54q-Auldiyb (Kgxexrfiqz31g-Xyngrjs), Administer 6mCi for male patients 241-330 lbs, IV, ONE TIME. OR Tn71n-Xeeqvha (Mthftodqlj58k-Ntkjfpy), Administer 8mCi for female patients 266- 399 lbs, IV, ONE TIME. OR Ly24y-Igmjykz (Qakncwqvhu63u-Powuryq), Administer 8mCi for male patients 331-299 lbs, IV, ONE TIME. Myocardial Stress - SPECT Imaging Ct91o-Tpvjedi (Qvyjtmtjvs51m-Qghcwrk), Administer 12mCi for patients <180 lbs, IV, ONE TIME. OR Er42k-Zlmttun (Yiucrorgws39u-Tnxkvus), Administer 15mCi for patients 181-240 lbs, IV, ONE TIME. OR Aq99j-Yrdxbmo (Xtgsyyqznz61w-Jutcggu), Administer 18mCi for female patients 241- 265 lbs, IV, ONE TIME. OR Rk66x-Xtbewov (Idxbemodvc21u-Hxysflh), Administer 18mCi for male patients 241- 330 lbs, IV, ONE TIME. OR Ua05b-Wbalkns (Duuazzwisj21e-Vdiizov), Administer 24mCi for female patients 266- 399 lbs, IV, ONE TIME. OR Op01e-Hdlpebb (Jzwbamgwoo90l-Lsxumek), Administer 24mCi for male patients 331- 299 [...] Administer 6mCi, IV, ONE TIME. Parathyroid Imaging Jh96w-Niihbpgiq (Leahqnmmei84d-dntszlxdy), Administer 20mCi, IV, ONE TIME. PET/CT Axumin F-18 Axumin (Gbdngryn41-bkgsrsyyqxfa), Administer 10mCi, IV, ONE TIME. PET/CT Bone Scan F18-NaF (Bppbbdug98-weebgc fluoride), Administer 0.11mCi/kg with at least 8mCi, upto 14mCi, IV, ONE TIME. PET/CT Brain Imaging F18-FDG (Kfnftthz96-vgfkrpryaofgxwrmr), Administer 0.11mCi/kg with at least 8mCi, up to 14mCi, IV, ONE TIME. PET/CT Dotatate Imaging Ga-68 Dotatate (Gallium-68 Dotatate), Administer 5.4mCi, IV, ONE TIME. PET/CT Limited, Standard, or Whole-Body Oncology Imaging F18-FDG (Mohqjowv69- flurodeoxyglucose), Administer 0.11mCi/kg with at least 8mCi, up to 14mCi, IV, ONE TIME. PET/CT Myocardial Scan F18-FDG (Duijjwio72-mfcybucxrrnbadrmi), Administer 0.11mCi/kg with at least 8mCi, up to 14mCi, IV, ONE TIME. Post GFR Imaging Kx04z-ALRQ (Xgvaxpswio23x-wmrdteoqaq-pnqsovdt-urupuemvwci), Administer 12mCi, IV, ONE TIME. OR Ur54l-XEW4 (Sfvjzlntgl56j-vdtasggehffwkgsqcecuafr), Administer 5mCi, IV, ONE TIME. PY Breath Test C-14 Urea (Carbon-14 Urea), Administer 1 uCi, Orally, ONE TIME. Renal Cortical Imaging Jf89g-JUKF (Zfeqogpxqr64x-wncgjjnodpwkzfdnej acid), Administer 5mCi, IV, ONETIME. Renal Perfusion Imaging Hm21l-EPOR (Bklpdshmma71g-ecqynecsgc-wetfyfhk-ggqfvkpxzzj), Administer 15mCi, IV, ONE TIME. OR Rw62k-EFM9 (Ncovwtiwgk64k-xoixvpuxuplvxtkrcelfeje), Administer 5mCi, IV, ONE TIME. Renogram Imaging Eu46k-IFEP (Exaiqzzgey74y-wlcjwooxvf-cuujqxlc-abgvunghohd), Administer 5mCi, IV, ONE TIME. OR Dd73d-THN0 (Nsclgeqmnh54b-zlzeclbxqgkibsixaeuayah), Administer 5mCi, IV, ONE TIME. Renogram with Flow Imaging Ra26z-QJOK (Pbjkgwgoiq90x-aipynhldkj-tdazfkqm-wzzbnmdtjer), Administer 5mCi, IV, ONE TIME. OR Qp36t-GUT0 (Itpzwglshi68p-yswnujwgaainwapxmjudyca), Administer 5mCi, IV, ONE TIME. Salivary Imaging Tc-99m Pertechnetate (Syktaiwryq00u-fbddnxnstyinn), Administer 5mCi, Orally, ONE TIME. Shunt Patency Imaging Qc28v-BQYW (Ciyhheufmq70f-puvkolmsfn-htemgllh-jeirusinxpz), Neuroradiologist to administer 500uCi, intra-shunt reservoir, ONE TIME. Substernal Thyroid Imaging I-131 Na Iodide (Iodide-131 Na Iodide), Administer 100 uCi, Orally, ONE TIME. Gg14u-HRW Imaging Uq95a-Ihedahy (Uklzumnhbf98h-Wbdvvgy), Administer at least 15mCi, up to 20mCi, heparanized WBC, IV, ONE TIME. Testicular Imaging Tc-99m Pertechnetate (Xgigzgyaeq23o-pgxsfnssptngw), Administer 15mCi, IV, ONE TIME. Thallium Whole Body Scan Imaging Tl-201 (Thallium Chloride-201), Administer 3mCi, IV, ONE TIME. Thyrogen Injection Thyrogen (thyrotopin natividad), Administer 0.9mg, deep IM, every 24 hours for 2 doses. Thyroid Imaging Tc-99m Pertechnetate (Sactcwozds49l-lisbxsymijajz), Administer 5mCi, IV, ONE TIME. Thyroid Scan/Uptake I-123 Na Iodide (Iodide-123 Na Iodide), Administer at least 200 uCi, up to 400 uCi, Orally, ONE TIME. Thyroid Uptake I-131 Na Iodide (Iodide-131 Na Iodide), Administer at least 5 uCi, up to 25 uCi, Orally, ONE TIME. Vasotec/Enalaprilat Renal Imaging Tp37g-AUKX (Onexzrgbhd92l-egckxxyfra-jlwmjoxg-vlxsaxtkmgq), Administer 5mCi, IV, ONE TIME. AND Administer Enalaprilat (Vasotec) 0.04mg/kg with a maximum dose of 2.5mg. Dilute to 5mL total volumewith normal saline and infuse via infusion device over 5 minutes. OR Wd88b-WWA6 (Brgskfqcnf13r-bqofkmjzcsnefbtakzomjqk), Administer 5mCi, IV, ONE TIME. AND Administer Enalaprilat (Vasotec) 0.04mg/kg with a maximum dose of 2.5mg. Dilute to 5mL total volumewith normal saline and infuse via infusion device over 5 minutes. Venography Imaging NaPYP (sodium pyrophosphate) AND Tc-99m Pertechnetate (Hatojtngmb45z-djpivpdjhfhqc), Administer 6mg NaPYP, IV, ONE TIME AND Administer 15mCi Tr84f-llisjueluncvf, IV, ONE TIME. Whole Body I-131 Imaging I-131 Na Iodide (Iodide-131 Na Iodide), Administer 3 mCi, Orally, ONE TIME. Pediatric Procedures & Dosages: o Note: Radiopharmaceuticals dosages with a range are determined by tin roller hot mill calibration PROCEDURE DOSAGE Bone Scan Imaging (Whole Body, Limited, 3-Phase, or SPECT) Zs03d-ZXS (Nazvkhvlsp96e-vollqtkid diphosphonate), Administer 0.25mCi/kg with at least 1mCi, up to 20mCi, IV, ONE TIME. Brain Imaging Ix91i-VIYB (Lqskqmdeys08e-bffxehiktv-nbtszzxp-uxqzyxrlkdg), Administer 0.8mCi/kg with at least 5mCi, up to 20mCi, IV, ONE TIME. Cisternogram Imaging In-111 DTPA (Indium-111 gpijdhcdeu-hwhcosaq-cucerqriduu), Neuroradiologist to administer 4uCi/kg with at least 50uCi, up to 300uCi, Intrathecally, ONE TIME. Cystogram Imaging Tc-99m Pertechnetate (Iiyjsxeais50y-ogoocmngyapuq) Administer 1mCi, intra-mcguire catheter, ONE TIME AND Administer 500ml-1000ml NS, intra-mcguire catheter, ONE TIME. Diuretic Renal Imaging Hs81y-IXXA (Tukzkpkmbk73j-rkyqqeaqjr-oeqmirnv-wopazybcjdb), Administer 0.2mCi/kg with at least 2.5mCi, up ex26hJb , IV, ONE TIME. AND Administer Lasix (furosemide), 1mg/kg, up to 40mg, IV push over 2 minutes, ONE TIME. OR Xi03p-JMQ4 (Utrngemqou90t-tmvhasxvojhrpvpxicrysmh), Administer 0.1mCi/kg with at least 1mCi, up to 5mCi, IV, ONE TIME. AND Administer Lasix (furosemide), 1mg/kg, up to 40mg, IV push over 2 minutes, ONE TIME. Diverticulum/Meckel's Imaging Tc-99m Pertechnetate (Zgqttsogem05p- pertechnetate), Administer 0.05mCi/kg with at least 2.5mCi, up to 15mCi, IV, ONE TIME. Esophageal Reflux Imaging - <1yoa Fg85i-Dxwtvf Colloid (Wqabpumjcg77d-uqruxd colloid), Administer 0.1mCi for patients <3.5lbs, Orally, ONE TIME. OR Administer 0.2mCi for patients 3.5-6.5lbs, Orally, ONE TIME. OR Administer 0.3mCi for patients >6.5lbs, Orally, ONE TIME. *For all administrations, mix half of formula or breast milk feeding amount with radiopharmaceutical. Follow with remainder of feeding amount. Esophageal Reflux Imaging - >1yoa Nz99f-Nwcaal Colloid (Awyuwgljeb42s-acvwfr colloid), Administer 0.5mCi in 1 oz whole [...] TIME. Gastric Empty Imaging - Liquid Meal Wo81c-Aoyrmf Colloid (Njwylotbov02m-spihef colloid), Administer0.5mCi in 300mL whole milk or formula, Orally, ONE TIME. Gastric Empty Imaging - Solid Meal Hp10d-Udevxe Colloid (Wvvfuwrnws63d-uttupw colloid), Administer 500uCi in 4 oz egg beaters or in 1 package of cooked instant oatmeal, Orally, ONE TIME. GI Bleed Imaging Tc-99m Pertechnetate (Vikyhlbdds76r-rvibbvjtshuas), Administer 0.2mCi heparanized RBCs with at least 1mCi, up to 20mCi, IV, ONE TIME. Hemangioma Imaging Tc-99m Pertechnetate (Iwtbhzbsyo62g-hykztxjlgicdq), Administer 0.2mCi heparanized RBCs with at least 1mCi, up to 20mCi, IV, ONE TIME. Hepatobiliary Scan Imaging Tc-99m Mebrofenin (Tariprcvvs03f-binpnylrhq), Administer .05mCi/kg with a at least 1mCi, up to 5mCi IV, ONE TIME Hepatobiliary Scan with Ejection Fraction Imaging Tc-99m Mebrofenin (Fvxyejdqzl07r-ymjbmsrzhd), Administer .05mCi/kg with a at least 1mCi, up to 5mCi IV, ONE TIME AND For immediate use - Sincalide (Kinevac) 0.02 mcg/kg IV, ONE TIME, diluted with NS to a total infused volume of 30 mLs. Infuse via an infusion device over 30 minutes. Hepatobiliary Scan with Pre-Treatment Imaging Tc-99m Mebrofenin (Sslitctted77c- mebrofenin), Administer 0.05mCi/kg with a at least 1mCi, up to 5mCi IV, ONE TIME AND For immediate use - Sincalide (Kinevac) 0.01 mcg/kg IV, ONE TIME, diluted with NS to a total infused volume of 5 mLs., IV push over 5 minutes. Hot PYP Bone Imaging Vb37z-EnECJ (Piniudxdtl61l-xiquqt pyrophosphate), Administer 0.6mCi/kg, with at least 2.5mCi, up to 20mCi IV, ONE TIME. Hot PYP Cardiac Imaging Oc06u-MwDOG (Zhkzrlkszl93c-thaowy pyrophosphate), Administer 0.6mCi/kg, with at least 2.5mCi, up to 20mCi IV, ONE TIME. In-111 WBC Imaging In-111 Oxine (Indium-111 Oxine), Administer 20uCi/kg with at least 50uCi, up to 300uCi, heparanized WBC, IV, ONE TIME. Liver/Spleen Imaging Cz76d-Piojhp Colloid (Mcsfhkxuyj76a-mzdhpz colloid), Administer 0.05mCi/kg with at least 0.4mCi, up to 3mCi, IV, ONE TIME. Lung Perfusion Imaging Tc-99m MAA (Vsgimvkzrl80a-mppqribamcoahjk albumin), Administer 0.03mCi/kg, with at least 0.4mCi, [...] Orally, ONE TIME. MUGA/RVG Imaging Tc-99m Pertechnetate (Baslwtsfrv88a-ypafiwmpxminn), Administer 0.2mCi/kg heparanized RBCs with at least 1mCi, up to 20mCi, IV, ONE TIME. Myocardial Rest Imaging - SPECT Imaging Ml48m-Nyoaquk (Wrurdldwbv25r-Isqbuya), Administer at least 5.18mCi, up to 6.08mCi, IV, ONE TIME. Consult authorized user prior to administration. Dosage based on Trujillo's Rule (age+1/age+7)*8 Myocardial Stress Imaging - SPECT Imaging Cj40u-Amyqcqu (Sklxvjradd54d-Pxyhizf), Administer at least 15.5mCi, up to 18.24mCi, [...] to 6mCi, IV, ONE TIME. Parathyroid Imaging Xq00z-Dyymlamle (Wklohrajth61k-hqgctytsr), Administer at least 5.18mCi, up to 6.08mCi, IV, ONE TIME. Dosage based on Trujillo's Rule (age+1/age+7)*8 PET/CT Brain Imaging F18-FDG (Zuknkvtw01-eafzmcsrzwahajycb), Administer 0.11mCi/kg with at least 1mCi, up to 10mCi, IV, ONE TIME. PET/CT Limited, Standard, or Whole-Body Oncology Imaging F18-FDG (Gwszkpni84- flurodeoxyglucose), Administer 0.11mCi/kg with at least 2mCi, up to 10mCi, IV, ONE TIME. Renal Cortical Imaging Bu21y-SUWE (Tywbodrbfy10o-dnqjdrtbnrrtbpxebm acid), Administer 0.05mCi/kg with at least 0.5mCi, up to 2.5mCi, IV, ONE TIME. Renogram Imaging Ty66a-QJSC (Qqdxhwgkvv61i-pwmhxgluph-qtfinqsr-lraeveupfba), Administer 0.2mCi/kg with at least 2.5mCi, up [id number] OR Iu92u-ULX7 (Acfseszmff83r-cfyiyaenbgcijkoscierota), Administer 0.1mCi/kg with at least 1mCi, up to 5mCi, IV, ONE TIME. Renogram with Flow Imaging Xu35g-IFFW (Ujpxecjeoc60n-gjbaqdjiew-ekoxiikb-bpxpkxkwuua), Administer 0.2mCi/kg with at least 2.5mCi, up db63yDk OR Dl52a-HRL1 (Bdesxqnuxo87r-fnarzewzyxgmihvkbmucftx), Administer 0.1mCi/kg with at least 1mCi, up to 5mCi, IV, ONE TIME. Aa41s-SOH Imaging Fn58u-Lgxposo (Sxqqodmckx38c-Hbhihiw), Administer 0.6mCi/kg heparanized WBC, IV, ONE TIME. Confirm calculated dose with nuclear medicine physician prior to injection. Testicular Imaging Tc-99m Pertechnetate (Efyrzflfpi17z-xdyxcagyzcgpo), Administer 0.4mCi/kg with atleast 5mCi, up to 15mCi, IV, ONE TIME. Thyroid Imaging Tc-99m Pertechnetate (Zinxnwceay40r-uvgdewkcjghuy), Administer 0.07mCi/kg with at least 1mCi, up to 5mCi, IV, ONE TIME. Thyroid Scan/Uptake I-123 Na Iodide (Iodide-123 Na Iodide), Administer at least 100uCi, up to 200uCi, Orally, ONE TIME. Thyroid Scan/Uptake I-131 Na Iodide (Iodide-131 Na Iodide), Administer at least 2uCi, up to 20uCi, Orally, ONE TIME. Vasotec/Enalaprilat Renal Imaging Dy49n-EBBX (Wxcomliddx20p-jzifzokdib-xhlugoot-xtzljmjjgwv), Administer 0.2mCi/kg with at least 2.5mCi, up [id number] AND Administer Enalaprilat (Vasotec) 0.03mg/kg, up to 2.5mg. Dilute to 5mL total volume with normal saline and infuse via infusion device over 5 minutes. OR Zr77f-PLL8 (Kyavsxlgtc79j-cdykezbybamfdwlcoliyxuv), Administer 0.1mCi/kg with at least 1mCi, up [...] and Pharmacy & Therapeutics Committee Date: 04/2018 [place] [employer] documented in this encounter Plan of Treatment Upcoming Encounters Date Type Department Care Team (Late st Contact Info) Description 03/19/2025 10:[address] [facility] [id number] [place] [phone] Caron Mohan MD [address] [place] [address] 03/19/2025 11:30 AM CDT Office Visit 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 Invasive ductal carcinoma of left breast PATHOLOGY Pathology 11/22/2018 10:15 AM [employer] MERCHANDISER Invasive ductal carcinoma of breast, left SENTINEL LYMPH NODE BIOPSY 11/22/2018 9:27 AM [employer] MERCHANDISER Invasive ductal carcinoma of breast, left BREAST LUMPECTOMY 11/22/2018 9:2 7 AM [employer] MERCHANDISER Invasive ductal carcinoma of breast, left MAMMO US GUIDED BREAST LOCAL Routine 11/22/2018 8:55 AM [employer] MERCHANDISER Invasive ductal carcinoma of left breast NM LYMPHOSCINTIGRAPHY Routine 11/22/2018 8:28 AM [employer] MERCHANDISER Invasive ductal carcinoma of left breast documented in this encounter Results * MAMMO POST PROCEDURE MAMMO LEFT (11/22/2018 10:43 AM RETAIL GREETING [employer]ARD MERCHANDISER) Anatomical Region Laterality Modality Breast Left Mammography 11/22/2018 7:37 AM [employer] MERCHANDISER Impressions 11/25/2018 1:04 PM [employer]AIL GREETING [employer]ARD MERCHANDISER IMPRESSION: Technically successful ultrasound-guided needle localization and surgical excision of the left breast as described above. DICTATION LOCATION: [facility] 11/25/2018 1:04 PM RETAIL GREETING [employer]ARD MERCHANDISER ULTRASOUND-GUIDED NEEDLE LOCALIZATION OF THE LEFT BREAST [...] left breast as described above. DICTATION LOCATION: [facility] Ita Vazquez MD MAMMO ORDERABLES * PATHOLOGY (11/22/2018 10:15 AM RETAIL GREETING CARD MERCHANDISER) CASE REPORT Surgical Pathology Report ? Case: [id number] ? Authorizing Provider: ??Ita Vazquez MD ? [...] stitch at new margin ? 3:27 PM [facility] ADDENDUM 1 A request for Oncotype Dx testing was received 12/11/[address] Mohan. This test will be performed on tissue from case [id number]. The case report, slides, and blocks for this case were retrieved from archives. The pathologist reviewed the original pathology report, examined candidate slides, and selected the most appropriate block(s). This selected material is forwarded to [employer] where the test will be performed. Results will be directly issued to the treating physician by the laboratory performing the test. 3:27 PM [facility] Addendum electronically signed by Joaquín Holcomb MD on 12/11/2018 at 3:27 PM FINAL DIAGNOSIS A. 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 B. Breast, left, lumpectomy: - Invasive ductal carcinoma, with the following features: 1. Size: 1.3 cm. 2. Donnie score: 6/9. 3. Margins: Invasive carcinoma 3 mm from the posterior margin. 4. Lymphvascular invasion: Not definitively identified. 5. Stage: pT1c snN1mi. 6. Biomarkers: HER2 1+ (ER and [place] positive performed previously on [id number]). - Radial scar. - Intraductal papilloma (0.1 [...] breast tissue, negative for carcinoma. 3:27 PM [facility] IMEN DESCRIPTION (A) Axilla, left, sentinel lymph nodes, collected at 1015; (B) breast, left, lumpectomy, short stitch superior, long stitch lateral, clip at deep margin, collected at 1023; (C) breast, left, re-excision medial to deep margin, stitch at new margin, collected at 1025. 9 3:27 PM [facility] OPERATIVE PROCEDURE Left breast lumpectomy with needle localization at 0830 am. Nuclear medicine at 0745, needle localization at 0830. Left axillary sentinel lymph node biopsy with nuclear medicine at 0745 am. 9 3:27 PM [facility] CLINICAL DIAGNOSIS Invasive ductal carcinoma of breast, left (C50.912). 9 3:27 PM [facility] GROSS DESCRIPTION The specimen is [...] 2; B5 to B8-level 3; B9 to H14-unbxp 4; B13 to G40-cubyv 5; B17 to F61-dtnbk 6; B21 and 22-inferior margin perpendicularly sectioned. [...] formalin at 1100. MANISH/sania 9 3:27 PM [facility] MICROSCOPIC DESCRIPTION Slides are received labeled [id number] and Jolene Cedillo. The left axillary sentinel [...] is negative for carcinoma. 9 3:27 PM [facility] SPECIAL AND IMMUNOPEROXIDASE STAINS Diagnosis: [...] negativity on decalcified tissues. 9 3:27 PM [facility] SYNOPTIC REPORT INVASIVE CARCINOMA OF [...] Lymph Nodes Examined: ?2 ? Number of Shickley Nodes Examined: ?2 PATHOLOGIC STAGE CLASSIFICATION (pTNM, AJCC 8th Edition) ?? TNM Descriptors: ?Not applicable ?? Primary Tumor (Invasive Carcinoma) (pT): ?pT1c ?? Regional Lymph Nodes (pN): ? Modifier: ?(sn): Only sentinel node(s) evaluated. ? Category (pN): ?pN1mi 9 3:27 PM [employer] MERCHANDISER [facility] COMMENT Special stain and/or immunohistochemical results are interpreted with controls that demonstrate appropriate staining reactions. Note on use of immunocytochemistry reagents: This test was developed and its performance characteristic determined by [facility], Department of Laboratory Medicine. It has not [...] WF, WB and WH are performed by [address], [address]. All other case types are performed by [address], [address]. 9 3:27 PM [employer] MERCHANDISER [facility] Tissue (Axilla, left) Collection / Unknown 11/22/2018 10:15 AM [employer] MERCHANDISER 11/22/2018 10:18 AM [employer] MERCHANDISER Tissue specimen (specimen) LEFT BREAST STRUCTURE / Unknown 11/22/2018 10:23 AM [employer] MERCHANDISER 11/22/2018 10:35 AM [employer] MERCHANDISER Tissue specimen (specimen) LEFT BREAST STRUCTURE / Unknown 11/22/2018 10:25 AM [employer] MERCHANDISER 11/22/2018 10:55 AM [employer] MERCHANDISER Ita Vazquez MD PATHOLOGY/CYTOLOGY O IONERABETTINA [facility] CLIA# [id number] [address] [place] [address] [place] [address] * MAMMO US GUIDE NEEDLE PLACEMENT (11/22/2018 8:55 AM [employer] MERCHANDISER) Anatomical Region Laterality Modality Breast N/A Ultrasound 11/22/2018 9:56 AM [employer] MERCHANDISER Impressions 11/25/2018 1:04 PM [employer] MERCHANDISER IMPRESSION: Technically successful ultrasound-guided needle localization and surgical excision of the left breast as described above. DICTATION LOCATION: [facility] Mercedes Narrative 11/25/2018 1:04 PM [employer] MERCHANDISER ULTRASOUND-GUIDED NEEDLE LOCALIZATION OF THE LEFT BREAST [...] ORDERABLES * NM LYMPHOSCINTIGRAPHY (11/22/2018 8:28 AM [employer] MERCHANDISER) Anatomical Region Laterality Modality Nuclear Medicine 11/22/2018 8:28 AM [employer] MERCHANDISER Impressions 11/22/2018 8:33 AM [employer] GRE[employer] MERCHANDISER IMPRESSION: ??Shickley lymph node identified and marked in the axilla. Dictated by Dr. Fortino Islas MD DICTATION LOCATION: 1 Narrative 11/22/2018 8:33 AM [employer] MERCHANDISER SENTINEL LYMPH NODE IMAGING DATE: 11/22/2018 8:28 AM HISTORY: Invasive ductal carcinoma of the left breast. PROCEDURE: Skin preparation with Betadine and alcohol. Technetium Lymphoseek was injected as 2 intradermal injections around the periareolar region. Shickley lymph node in the axilla identified and marked. RADIOPHARMACEUTICAL: 0.52 mCi 99m technetium Lymphoseek Procedure Note Fortino Islas MD - 11/22/2018 SENTINEL LYMPH NODE IMAGING DATE: 11/22/2018 8:28 AM HISTORY: Invasive ductal carcinoma of the left breast. PROCEDURE: Skin preparation with Betadine and alcohol. Technetium Lymphoseek was injected as 2 intradermal injections around the periareolar region. Shickley lymph node in the axilla identified and marked. RADIOPHARMACEUTICAL: 0.52 mCi 99m technetium Lymphoseek IMPRESSION: Shickley lymph node identified and marked in the [...] Routine, Anesthesia Intra-op Given 11/22/2018 9:58 AM [employer] MERCHANDISER 60 mL diphenhydrAMINE (BENADRYL) injection 12.5 mg 12.5 mg, IV, POST-PROCEDURE ONCE PRN, 2 doses, Starting on Sun11/22/18 at 0914, Until Sun11/22/18 at 1427, Nausea/Emesis, Routine, PACU HYDROcodone-acetamino phen (NORCO) 5-325 mg per tablet 1 Tablet 1 Tablet, Oral, EVERY 4 HOURS PRN, Starting on Sun11/22/18 at 1139, Until Sun11/22/18 at 1427, Pain, Moderate, Routine Given 11/22/2018 11:55 AM [employer] C[employer] MERCHANDISER 1 Tablet isosulfan blue (LYMPHAZURIN) injection INTRA-PROCEDURE PRN, Starting on Sun11/22/18 at 0958, Until Sun11/22/18 at 1058, Routine, Anesthesia Intra-op Given 11/22/2018 9:58 AM [employer] MERCHANDISER 3 mL Operative Site lactated Ringers solution IV, at 150 mL/hr, PRE-PROCEDURE CONTINUOUS, Starting on Sun11/22/18 at 0645, Until Sun11/22/18 at 1427, Routine, Pre-op Continue from Pre-Op 11/22/2018 9:38 AM [employer] MERCHANDISER New Bag 11/22/2018 9:18 AM [employer] MERCHANDISER 150 mL/hr lactated Ringers solution IV, at 125 mL/hr, POST-PROCEDURE CONTINUOUS, Starting on Sun11/22/18 at 0930, Until Sun11/22/18 at 1427, Routine, PACU lidocaine PF 1 % (XYLOCAINE MPF) injection 30 mL 30 mL, Infiltration, ONE TIME ONLY, 1 dose, On Sun11/22/18 at 0900, Routine Admin by Another Clinician (Comment) 11/22/2018 8:45 AM [employer] C[employer] MERCHANDISER 4.5 mL Operative Site lidocaine PF 2 % (XYLOCAINE MPF) injection 0.3 mL 0.3 mL, Infiltration, PRE-PROCEDURE ONCE, Starting on Sun11/22/18 at 0642, Until Sun11/22/18 at 1427, Routine, Pre-op Given 11/22/2018 6:57 AM RETAIL GREETING CARD MERCHANDISER 0.3 mL methylene blue (UROLENE BLUE) 1 % (10 mg/mL) injection 50 mg 50 mg (5 mL), See Admin Instructions, ONE TIME ONLY, 1 dose, On Sun11/22/18 at 0900, Routine Admin by Another Clinician (Comment) 11/22/2018 8:45 AM RET[employer] GREET[employer] CARD MERCHANDISER 0.5 mg Operative Site morphine injection 2 [...] Started by Another Clinician 11/22/2018 8:45 AM RET[employer]ETING CARD MERCHANDISER 0.25 mEq Operative Site sodium chloride 0.9 % irrigation solution INTRA-PROCEDURE PRN, Starting on Sun11/22/18 at 0958, Until Sun11/22/18 at 1058, Routine, Anesthesia Intra-op Given 11/22/2018 9:58 AM RET[employer] C[employer] MERCHANDISER 500 mL Operative Site documented in this encounter Active and Recently Administered Medications Times are shown in [employer]AIL [employer] MERCHANDISER. Scheduled Medication Order 11/20/2018 11/21/2018 11/22/2018 ceFAZolin [...] Sun11/22/18 at 0900, Routine 0845 (Admin by [facility] er Clinician (Comment) - Provider: Vicky Lugo [...] Sun11/22/18 at 0900, Routine 0845 (Admin by [facility] er Clinician (Comment) - Provider: Vicky [...] MD) documented in this encounter Care Teams Procurement Cost Coordinator Relationship Specialty Start Date End Date Francisco Long MD PCP - General Internal Medicine 06/27/18 documented as of this encounter
--- OUTSIDE RECORDS SUMMARY | 2024-11-16 15:29 | XMS_ITS | Encounter Summary ---
Author Organization [facility] Address [address] [place] [address] Care Team Providers Care Cd Reactor Operator Name Role Phone Francisco Long MD Primary Care Provider Unavailabl e Reason for Visit * Reason Onset Date Comments Results 09/25/2018 Encounter Details Date Type Department Care Team (Late Contact Info) Description 09/25/2018 Telephone [facility] BREAST SURGERY - CLHUGO GUERRAKSBerenice [address] [place] [address] [place] [address] [place] [address] Results Social History Tobacco Use [...] 10:45 AM CDT Appointment [facility] [address] [place] [address] Caron Mohan MD [address] [place], [place] [id number] 03/19/2025 11:30 AM CDT Office Visit [facility] Oncology and Hematology [place] [address] [place] [address] Caron Mohan MD [address] [place], [place] [id number] [place] [address] [place] [address] documented as of this encounter Visit Diagnoses Not on filedocumented in this encounter Care Teams Cd Reactor Operator Relationship Specialty Start Date End Date Francisco Long MD PCP - General Internal Medicine 06/27/18 documented as of this encounter
--- OUTSIDE RECORDS SUMMARY | 2024-11-16 15:30 | XMS_ITS | Encounter Summary ---
Author Organization [facility] Address [address] [place] [address] Care Team Providers Care Patient Care Specialist Name Role Phone Francisco Long MD Primary Care Provider Unavailabl e Encounter Details Date Type Department Care Team ([facility] Contact Info) Description 09/17/2018 Chart Note [facility] [address] [place] [address] Enma Verdugo RN Social History [...] Progress Notes * Enma Verdugo RN - 09/17/2018 2:19 PM CDT Patient scheduled for a left breast US guided core biopsy. Discussed with patient the reason for recommended biopsy and what to expect during the procedure; biopsy brochure provided. Benefits and risks of recommended procedure reviewed which include but are not limited to infection, bleeding, bruising and/or hematoma. Medical/surgical history, medications and allergy(s) also reviewed. Patient hasbeen reminded to avoid ASA or Ibuprofen containing products five days prior to procedure. The time,date and location of biopsy provided in writing. Patient is in agreement with plan of care and encouraged to call with any questions or concerns. Enma Verudgo HEALTHCARE INSURANCE SALES AGENT Nurse Navigator-[facility] documented in this encounter Plan of Treatment Upcoming Encounters Date Type Department Care Team (Late Contact Info) Description 03/19/2025 10:45 AM CDT Appointment [facility] [address] [place] [address] Caron Mohan MD [address] [place], [place] [id number] 03/19/2025 11:30 AM CDT Office Visit [facility] Oncology and Hematology [address] [place] [address] [place] [address] Caron Mohan MD [address] [place] [address] [place] [address] [facility] [address] [place] [address] documented as of this encounter Visit Diagnoses Not on filedocumented in this encounter Care Teams Patient Care Specialist Relationship Specialty Start Date End Date Francisco Long MD PCP - General Internal Medicine 06/27/18 documented as of this encounter
--- OUTSIDE RECORDS SUMMARY | 2024-11-16 15:30 | XMS_ITS | Encounter Summary ---
Author Organization [facility] Address [address] [place] [address] Care Team Providers Care Academy Director Name Role Phone Francisco Long MD Primary Care Provider Unavailabl e Reason for Visit * Reason Comments Breast Mass Left Breast Mass Encounter Details Date Type Department Care Team (Late st Contact Info) Description 09/17/2018 12:15 PM CDT Office Visit [facility] BREAST SURGERY - CLYTN CLRKSN [address] [place] [address] [place] [address] [place] [address] Breast lump on left side [...] ??? 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 UT LAP,LYMPH NODE BX N/A 07/09/2018 PELVIC LYMPH NODE STAGING DAVINCI SI performed by Micki Cadena MD at [facility] OR [facility] ??? UT LAP,RMV ADNEXAL STRUCTURE Bilateral 07/09/2018 SALPINGO-OOPHORECTOMY DAVINCI SI performed by Micki Cadena MD at [facility] OR [facility] ??? UT LAPAROSCOPY W TOT HYSTERECT UTERUS 250 GRAM OR LESS N/A 07/09/2018 HYSTERECTOMY TOTAL DAVINCI SI performed by Micki Cadena MD at [facility] ALLERGY: Allergies Allergen Reactions ??? Atorvastatin [...] with left additional views and ultrasound at [place]- there is a new 16 mm irregular [...] 03/19/2025 10:45 AM CDT Appointment [facility] [address] [place] [phone] Caron Mohan MD [address] [place] [id number] 03/19/2025 11:30 AM CDT Office Visit [facility] Oncology and Hematology [address] [place] [address] Caron Mohan MD [address] [place] [phone] [place] [address] [address] [place] [address] documented as of this encounter Visit Diagnoses Diagnosis Breast lump on left side at 9 o'clock position- Primary Lump or mass in breast Breast lump Lump or mass in breast documented in this encounter Care Teams Academy Director Relationship Specialty Start Date End Date Francisco Long MD PCP - General Internal Medicine 06/27/18 documented as of this encounter
--- OUTSIDE RECORDS SUMMARY | 2024-11-16 15:30 | XMS_ITS | Encounter Summary ---
Author Organization [facility] Address [address] [place] [address] Care Team Providers Care Buyer Tobacco Head Name Role Phone Francisco Long MD Primary Care Provider Unavailabl e Reason for Referral * Radiology Services (Routine) - Closed Specialty Diagnoses / Procedures Referred By Halima garcia Referred To Contact Diagnoses Breast lump Procedures MAMMO BREAST [place] [address] [place] [address] Referral ID Status Reason Start Date Expiration Date Visits Re quested Visits Authorized [id number] Closed 09/13/2018 10/14/2019 1 1 Encounter Details Date Type Department Care Team (Late st Contact Info) Description 09/13/2018 Orders Only [facility] BREAST SURGERY - CLYTN CLRKS[place] [address] [place] [address] [place] [address] [place] [address] Breast lump Social History Tobacco [...] AM CDT Appointment [facility] [address] [place] [phone] Caron Mohan MD [address] [facility] [address] [place] [address] 03/19/2025 11:30 AM CDT Office Visit [facility] Oncology and Hematology [address] [facility] [address] [place] [address] Caron Mohan MD [address] [place], [place] [phone] [place] [address] [facility] [address] [place] [address] documented as of this encounter [...] breast documented in this encounter Care Teams Buyer Tobacco Head Relationship Specialty Start Date End Date Francisco Long MD PCP - General Internal Medicine 06/27/18 documented as of this encounter
--- OUTSIDE RECORDS SUMMARY | 2024-11-16 15:30 | XMS_ITS | Encounter Summary ---
Author Organization [facility] Address [address] [place] [address] Care Team Providers Care Time Clock Mechanic Name Role Phone Neil Ag MD PhD Unavailable [phone] Ita Vazquez MD Unavailable Caron Mohan MD Unavailable Pebbles Felton MD Unavailable [phone] Mariangel Quiñonez MD Primary Care Provide r Reason for Visit * Reason Onset Date Comments Successful Phone Call 06/26/2024 MED ADHERE NCE-PAST DUE Encounter Details Date Type Department Care Team (Late st Contact Info) Description 06/26/2024 Telephone [facility] Medical Group Primary Care at [address] [place] [address] Fadia Castaneda [address] [place] [address] [address] [place] [address] Successful Phone Call (MED ADHERENCE-PAST DUE ) [...] file 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 She can let us know when she needs a refill * Telephone Encounter - Ryana Guzman MA - 06/26/2024 2:49 PM CDT [...] forgetfulness. Please send a refill to the [facility] in [place], [place] Education provided during this encounter: Request [...] on filedocumented in this encounter Care Teams Time Clock Mechanic Relationship Specialty Start Date End Date Mariangel Quiñonez MD [address] [address] PCP - General Family Medicine 05/16/22 Neil Ag MD PhD [address] [place] [address] Radiation Oncologist Radiation Oncology 12/17/18 [place] [address] [address] Referring Physician General Surgery 12/17/18 [place] [address] [address] Medical Oncologist/Blueprint Blocker Medical Oncology 12/17/18 [place] [address] [address] Consulting Physician Gastroenterology 01/07/20 documented as of this encounter
--- OUTSIDE RECORDS SUMMARY | 2024-11-16 15:30 | XMS_ITS | Encounter Summary ---
Author Organization [facility] Healthcare Address [address] [place] [address] Care Team Providers Care Cash Applications Specialist Name Role Phone Neil Ag MD PhD Unavailable Ita Vazquez MD Unavailable Caron Mohan MD Unavailable [phone] Pebbles Felton MD Unavailable [phone] Mariangel Quiñonez MD Primary Care Provide r [...] Description 09/04/2024 3:30 PM CDT Office Visit [facility] Medical Group [facility] [place] [address] [place] [address] Lisa Rojas, FUEL CELL ASSEMBLER [address] [place] [address] Rash (Primary Dx) Social History Tobacco [...] on file Legal 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 * Acute Rash (AfterCare(R) Instructions(ER/ED)) (Slovenian) documented in this encounter Ordered Prescriptions Prescription [...] Patient is a 78-year-old female presents to [facility] Care chief complaint rash and [...] Supportive care was discussed including rest, hydration, qpxe-zbc-wjehfmb meds to help symptoms. Prednisone was prescribed. Discussed medications dosages, usage & potential side effects. I did advise patient to contact her director learning services to see if she needs to hold [...] This note is dictated and transcribed by [employer]. Relay Telegrapher variances may occur. Despite proofreading, typographical errors may occur. Lisa Rojas NP documented in this encounter Plan of Treatment Not on file documented as of this encounter Visit Diagnoses Diagnosis Rash- Primary Rash and other nonspecific skin eruption documented in this encounter Care Teams Cash Applications Specialist Relationship Specialty Start Date End Date Mariangel Quiñonez MD [address] [address] PCP - General Family Medicine 05/16/22 Neil Ag MD PhD [address] [place] [address] Radiation Oncologist Radiation Oncology 12/17/18 [place] [address] [facility] [address] [place] [address] Referring Physician General Surgery 12/17/18 [place] [address] [facility] [address] [place], [place] [phone] Medical Oncologist/Lab Aide Medical Oncology 12/17/18 [place] [address] [facility] [address] [place] [address] Consulting Physician Gastroenterology 01/07/20 documented as of this encounter
--- OUTSIDE RECORDS SUMMARY | 2024-11-16 15:30 | XMS_ITS | Encounter Summary ---
Author Organization [facility] Address [address] [place] [address] Care Team Providers Care Safety And Health Consultant Name Role Phone Francisco Long MD Primary Care Provider Unavailabl e Encounter Details Date Type Department Care Team (Late st Contact Info) Description 09/20/2018 Orders Only [facility] BREAST SURGERY - [place] CLRKSN [address] [place] [phone] Francisco Long MD NO ADDRESS ON FILE [...] Appointment [facility] [address] [place] [phone] Caron Mohan MD [address] [facility] [address] [place] [id number] 03/19/2025 11:30 AM CDT Office Visit [facility] Oncology and Hematology [address] [place] [address] Caron Mohan MD [facility] [address] [place] [id number] [place] [address] [place] [phone] documented as of this encounter Procedures Procedure [...] on filedocumented in this encounter Care Teams Safety And Health Consultant Relationship Specialty Start Date End Date Francisco Long MD PCP - General Internal Medicine 06/27/18 documented as of this encounter
--- OUTSIDE RECORDS SUMMARY | 2024-11-16 15:30 | XMS_ITS | Encounter Summary ---
Author Organization [facility] Healthcare Address [address] [place] [address] Care Team Providers Care Delivery Director Name Role Phone Neil Ag MD PhD Unavailable Ita Vazquez MD Unavailable Caron Mohan MD Unavailable Pebbles Felton MD Unavailable [phone] Mariangel Quiñonez MD Primary Care Provide r Encounter Details Date Type Department Care Team (Late st Contact Info) Description 06/26/2024 Orders Only [facility] Medical Group Primary Care at [address] [place] [address] Mariangel Quiñonez MD [address] [place] [address] [address] [place], [place] [phone] Routine health maintenance (Primary Dx); Need for [...] on file 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 Gender Identity Not on file Sexual [...] Expected: 12/17/2024 (Approximate), Expires: 06/26/2025 Thyroid Function [facility] Routine Routine health maintenance Expected: 12/17/2024 [...] intake documented in this encounter Care Teams Delivery Director Relationship Specialty Start Date End Date Mariangel Quiñonez MD [address] [address] PCP - General Family Medicine 05/16/22 Neil Ag MD PhD 6 [place] [address] Radiation Oncologist Radiation Oncology 12/17/18 [place] [address] [facility] 120 [place], [place] [id number] Referring Physician General Surgery 12/17/18 [place] [address] [facility] [address] [place], [place] [phone] Medical Oncologist/Consumer Safety Inspector Medical Oncology 12/17/18 [place] [address] [facility] [address] [place], [place] [phone] Consulting Physician Gastroenterology 01/07/20 documented as of this encounter
--- OUTSIDE RECORDS SUMMARY | 2024-11-16 15:30 | XMS_ITS | Encounter Summary ---
Author Organization [facility] Healthcare Address [address] [place] [address] Care Team Providers Care Console Manager Name Role Phone Neil Ag MD PhD Unavailable [phone] Ita Vazquez MD Unavailable Caron Mohan MD Unavailable [phone] Pebbles Felton MD Unavailable [phone] Mariangel Quiñonez MD Primary Care Provide r Reason for Referral * Consultation (Routine) - Closed Specialty Diagnoses / Procedures Referred By Contac t Referred To Contact Physical Therapy Diagnoses Low back pain, unspecified back pain laterality, unspecified chronicity, unspecified whether sciatica present Mariangel Quiñonez MD [address] [place] [address] [address] Phone: tel: fax: External Order Referral ID Status Reason Start Date Expiration Date V isits Requested Visits Authorized [id number] Closed Evaluate and Treat 12/12/2023 01/10/2025 24 24 Question Answer PTRFR PT Evaluate and Treat Therapy options discussed with patient? Yes Location provided for therapy services is: Patient requested/Patient preferred Please select the performing region: External Order [171] # of visits: 24 Comments [facility] (P) [phone] (F) [phone] BUSINESS PROFESSOR Encounter Details Date Type Department Care Team (Late st Contact Info) Description 12/12/2023 Orders Only [facility] Medical Group Primary Care at [address] [place] [phone] Mariangel Quiñonez MD [address] [place] [place] [address] [address] [place] [address] Low back pain, unspecified back pain laterality, [...] on file 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 Gender Identity Not on file Sexual [...] Primary documented in this encounter Care Teams Console Manager Relationship Specialty Start Date End Date Mariangel Quiñonez MD [address] [address] PCP - General Family Medicine 05/16/22 Neil Ag MD PhD 6 [place] [address] Radiation Oncologist Radiation Oncology 12/17/18 [place] [address] [facility] 120 [place], [place] [phone] Referring Physician General Surgery 12/17/18 [place] [address] [facility] 120 [place], [place] [phone] Medical Oncologist/Auto Self Service Station Attendant Medical Oncology 12/17/18 [place] [address] [facility] 120 [place] [address] Consulting Physician Gastroenterology 01/07/20 documented as of this encounter
--- OUTSIDE RECORDS SUMMARY | 2024-11-16 15:30 | XMS_ITS | Encounter Summary ---
Author Organization [facility] Address [address] [place] [address] Care Team Providers Care Seo Manager Name Role Phone Francisco Long MD Primary Care Provider Unavailabl e Reason for Referral * Outpatient Services (Routine) - Closed Specialty Diagnoses / Procedures Referred By Halima garcia Referred To Contact CT Scan Diagnoses Endometrium cancer Procedures CT ABDOMEN PELVIS W CONTRAST Micki Cadena MD NO ADDRESS ON FILE Referral ID Status Reason Start Date Expiration Date V isits Requested Visits Authorized [id number] Closed [facility] 06/25/2018 07/25/2018 1 1 Reason for Visit * Outpatient Services (Routine) - Closed Specialty Diagnoses / Procedures Referred By Halima t Referred To Contact CT Scan Diagnoses Endometrium cancer Procedures CT ABDOMEN PELVIS W CONTRAST Micki Cadena MD NO ADDRESS ON FILE Referral ID Status Reason Start Date Expiration Date V isits Requested Visits Authorized [id number] Closed [facility] CTS 06/25/2018 07/25/2018 1 1 Encounter Details Date Type Department Care Team (Latest Contact Info) Description 06/27/2018 1:24 PM CDT - 06/27/2018 11:59 PM CDT Hospital Encounter [facility] [address] [place] [address] Micki Cadena MD NO ADDRESS ON FILE [...] SERVICES- CT, MRI MEDICATION and FLUSH PROTOCOL [facility] ORDERS ARE ENTERED ???PER PROTOCOL?? Enter the protocol in the patient???s electronic health record using [employer]: .imagingctmriprPlaytika Communication Orders: o For ordered imaging procedures [...] procedure. ??? If at any time the Member Of The Legislative Assembly has a question about which option to [...] oral. May use nasoenteric tube if needed. [place] to 3 months Administer up to 90mL [...] solution with the pateint???s nurse to CT [place] Administer 45mL of diluted Iohexol oral solution, [...] Info) Description 03/19/2025 10:45 AM CDT Appointment [facility] [address] [place] [address] Caron Mohan MD [address] [facility] [address] [place] [phone] 03/19/2025 11:30 AM CDT Office Visit [facility] Oncology and Hematology [address] [place] [address] Caron Mohan MD [address] [facility] [address] [place] [address] [place] [address] [place] [address] documented as of this encounter [...] LOCATION: The above dictation was performed at [address] Narrative 06/27/2018 3:32 PM CDT EXAMINATION: [...] LOCATION: The above dictation was performed at [address] Micki Cadena MD CT ORDERABLES * POC CREATININE (06/27/2018 2:40 PM CDT) CREATININE POC 0.90 0.50 - 1.00 mg/dL 06/27/2018 2:43 PM CDT [facility] [employer] - [employer] [facility] Comment: The GFR result is not clinically significant on patients <18 or >70 years of age. GFR >60 mL/min/1.7 3 sq meter 06/27/2018 2:43 PM CDT [facility]ORATORY [facility] Comment: eGFR has not been validated [...] 3 sq meter 06/27/2018 2:43 PM CDT [facility] Blood, capillary 06/27/2018 2:40 PM CDT 06/27/2018 2:43 PM CDT Micki Cadena MD POINT OF CARE TESTIN G [facility] CLIA# [id number] [address] [place] [address] documented in this encounter Visit Diagnoses Diagnosis [...] mL documented in this encounter Care Teams Seo Manager Relationship Specialty Start Date End Date Francisco Long MD PCP - General Internal Medicine 06/27/18 documented as of this encounter
--- OUTSIDE RECORDS SUMMARY | 2024-11-16 15:30 | XMS_ITS | Encounter Summary ---
Author Organization [facility] Healthcare Address [address] [place] [address] Care Team Providers Care Deck Scaler Name Role Phone Neil Ag MD PhD Unavailable [phone] Ita Vazquez MD Unavailable Caron Mohan MD Unavailable [phone] Pebbles Felton MD Unavailable [phone] Mariangel Quiñonez MD Primary Care Provide r Reason for Visit * Reason Onset Date Comments Referral Request 12/12/2023 Encounter Details Date Type Department Care Team (Late st Contact Info) Description 12/12/2023 Telephone [facility] Medical Group Primary Care at [address] [place] [address] Mariangel Quiñonez MD [address] [place] [address] [address] [place] [address] Referral Request Social History Tobacco [...] on file 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 Quiñonez, please review message is referral okay to place? CHANGER * Telephone Encounter - Yosef Kaur - 12/12/2023 2:47 PM CST Referral Provider Name (if patient is seeing a nurse practitioner or physician histology assistant, list the MANAGER OF FINANCE/PA, but also their collaborating doctor): [facility] Specialty: Physical Therapy Address: [address] [place] [address], Zip: [place] [address] Diagnosis Code/Symptom/Reason Patient is being seen: M 25. 552 Date of Appointment: Not set NPI#: not provided Tax ID#: Not provided Is insurance in chart up to date? Yes Additional Comments: Patient requesting [facility] order for Physical [facility]. [facility] Requesting call back when insurance determination received Does message need to be routed? Yes-Action Needed CHANGER documented in this encounter Plan of Treatment Not on file documented as of this encounter Visit Diagnoses Not on filedocumented in this encounter Care Teams Deck Scaler Relationship Specialty Start Date End Date Mariangel Quiñonez MD [address] [address] PCP - General Family Medicine 05/16/22 Neil Ag MD PhD 6 [place] [address] Radiation Oncologist Radiation Oncology 12/17/18 [place] [address] [facility] 120 [place], [place] [phone] Referring Physician General Surgery 12/17/18 [place] [address] [facility] 120 [place], [place] [phone] Medical Oncologist/Roadside Mechanic Medical Oncology 12/17/18 [place] [address] [facility] 120 [place], [place] [address] Consulting Physician Gastroenterology 01/07/20 documented as of this encounter
--- OUTSIDE RECORDS SUMMARY | 2024-11-16 15:30 | XMS_ITS | Encounter Summary ---
Author Organization [facility] Healthcare Address [address] [place] [address] Care Team Providers Care Maintenance Mechanic Elevators Name Role Phone Neil Ag MD PhD Unavailable [phone] Ita Vazquez MD Unavailable Caron Mohan MD Unavailable Pebbles Felton MD Unavailable [phone] Mariangel Quiñonez MD Primary Care Provide r Encounter Details Date Type Department Care Team (Late st Contact Info) Description 06/25/2024 Telephone [facility] Medical Group Primary Care at [address] [address] Mariangel Quiñonez MD [address] [place] [address] [address] [place] [address] Social History Tobacco Use Types [...] on file 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 I recommend following up with a optical glass inspector forthis. Her cholesterol levels are slightly elevated. I recommend working on diet and exercise for this. The A1c is 6.5 which is a good level. All other labs are unremarkable. documented in this encounter Plan of Treatment Not on file documented as of this encounter Visit Diagnoses Not on filedocumented in this encounter Care Teams Maintenance Mechanic Elevators Relationship Specialty Start Date End Date Mariangel Quiñonez MD [address] [place] [place] [address] [place] [address] PCP - General Family Medicine 05/16/22 Neil Ag MD PhD 6 [place] [address] Radiation Oncologist Radiation Oncology 12/17/18 [place] [address] [address] [facility] [address] [place] [id number] Referring Physician General Surgery 12/17/18 [place] [address] [address] [facility] [address] [place] [phone] Medical Oncologist/Senior Foreman Medical Oncology 12/17/18 [place] [address] [facility] [address] [place] [address] Consulting Physician Gastroenterology 01/07/20 documented as of this encounter
--- OUTSIDE RECORDS SUMMARY | 2024-11-16 15:30 | XMS_ITS | Encounter Summary ---
Author Organization [facility] Address [address] [place] [address] Care Team Providers Care Tool Pusher Name Role Phone Francisco Long MD Primary Care Provider Unavailabl e Reason for Visit * Auth/Cert Specialty Diagnoses / Procedures Referred By Halima t Referred To Contact Diagnoses ENDOMETRIAL CA Micki King MD NO ADDRESS ON FILE Referral ID Status Reason Start Date Expiration Date Visits Re quested Visits Authorized [id number] 06/24/2018 1 1 Encounter Details Date Type Department Care Team (Latest Contact Info) Description 07/09/2018 6:03 AM CDT - 07/10/2018 5:17 PM CDT Hospital Encounter [facility] [address] [place] [address] Micki King MD NO ADDRESS [...] 72 y.o. Gender female Date of 1945 [facility] [id number] Attending Physician No att. providers found Discharging [...] Your Medications These [facility] [address] [facility] [address] Hours: Sunday-Sunday: 8 a.m. - 8 p.m., [...] King MD - 07/10/2018 1:54 PM CDT DISTANCE LEARNING TECHNICIAN ONC Doing well. Tolerating diet. No nausea or emesis. Ambulating and voiding without difficulty. Pain well controlled. Mild right shoulder pain. VS, I/O, labs noted. Abdomen soft +bs obese. incision clean, dry, intact. [place] in place. Ext nontender no edema A/P POD #1. Discussed with patient operative findings. Path pending. Stable post op course. Home today.Instructions given and scripts written. Office in 2 weeks. Micki King MD [phone] (cell) * Brenda Schrader RN - 07/09/2018 11:43 PM CDT ADULT IV Flush Protocol [facility] ORDERS ARE ENTERED ???PER PROTOCOL?? Enter the [...] - 07/09/2018 9:28 AM CDT Operative Report [place], [place] Patient: Jolene Cedillo / 72 y.o. / female : 1945 Date: 07/09/2018 [facility]: [id number] Preoperative Diagnosis: Endometrial cancer, endometrioid type, grade 1 Postoperative Diagnosis: Same, final path pending. Procedure Performed: BEN GUALLPA, BSO, BPPLND Surgeon: Micki King MD Surgical Staff: Brim Curler: Audi Johnson RN Scrub: Sharath Lubin ST Lime Trimmer: Renato Palmer RN Anesthesia: General Estimated Blood [...] perineum.?? Mcguire was placed using sterile technique.?? [place] speculum was placed in the vagina.?? Cervix was visualized and grasped with single-tooth tenaculum.?? Uterus and cervix were then sounded to 8 cm.?? The cervical os was dilated to #16 F dilator.?? The medium VCare was placed into the uterus and locked into position with the noodle press operator supplied locking clip.?? Attention was then turned [...] diagnosis. Next, the vagina was closed in emdhaeif-cg-gvsbnjrxg direction, starting at 12 o'clock and working [...] Type: Medicare / The patient's preferred pharmacy [facility] [address] [place] [address] Juan A GALE & VALERIA Discussed discharge goals and possible discharge needs including home selfcare vs home with jaleesa. Care Management contact information provided. Care Management will continue to follow and assist asneeded. Maureen Sarmiento RN/[facility] Care Management [phone] * Care Plan - Brenda Schrader RN [...] pain/comfort utilizing verbal/nonverbal pain scales; assess culturalor muslim indicators attached to pain; administer pain medications [...] pain/comfort utilizing verbal/nonverbal pain scales; assess culturalor muslim indicators attached to pain; administer pain medications as prescribed; utilize non-pharmacologic pain control and comfort measures Expected Outcome: Patient demonstrates and reports adequate pain control Outcome Met: denies any pain documented in this encounter Plan of Treatment Upcoming Encounters Date Type Department Care Team (Late st Contact Info) Description 03/19/2025 10:[address] [facility] [address] [place] [address] Caron Mohan MD [address] [facility] [address] [place] [address] 03/19/2025 11:30 AM CDT Office Visit [facility] [address] [place] [phone] Caron Mohan MD [address] [facility] [address] [place] [phone] [place] [address] [place] [phone] documented as of this encounter Procedures Procedure [...] - 145 mmol/L 07/10/2018 5:09 AM CDT [facility] - [facility] POTASSIUM 3.8 3.5 - 5.0 mmol/L 07/10/2018 5:09 AM CDT [facility] [facility] - [facility] CHLORIDE 100 98 - 107 mmol/L 07/10/2018 5:09 AM CDT [facility] - [facility] CO2 26 22 - 29 mmol/L 07/10/2018 5:09 AM CDT [facility] - [facility] CALCIUM 8.4(L) 8.6 - 10.2 mg/dL 07/10/2018 5:09 AM CDT [employer] LABORATORY SERVICES - . [facility] BUN 8 8 - 23 mg/dL 07/10/2018 5:09 AM CDT [employer] LABORATORY SERVICES - . [facility] CREATININE 0.73 0.51 - 0.95 mg/dL 07/10/2018 5:09 AM CDT [facility] [facility] - [facility] Comment: The GFR result is not clinically significant on patients <18 or >70 years of age. GLUCOSE 140(H) 74 - 99 mg/dL 07/10/2018 5:09 AM T [employer] SERVICES - [facility] GFR >60 mL/min/1.7 3 sq meter 07/10/2018 5:09 AM T [facility] SERVICES [facility] Comment: eGFR has not been validated [...] 3 sq meter 07/10/2018 5:09 AM T [facility] ANION GAP 11 8 - 16 mmol/L 07/10/2018 5:09 AM [facility] [employer] [facility] Blood Venipuncture / Unknown 07/10/2018 4:05 AM CDT 07/10/2018 4:39 AM CDT Micki King MD CHEMISTRY ORDERABLES [facility] [employer] [facility]# [id number] [facility] [place] [address] * (ABNORMAL) CBC WITH DIFFERENTIAL (07/10/2018 4:05 AM CDT) WBC 10.1(H) 4.0 - 9.8 K/uL 07/10/2018 5:03 AM T [facility]ORATORY SERVICES [facility] RBC 4.25 3.90 - 4.90 M/uL 07/10/2018 5:03 AM [facility] HEMOGLOBIN 10.9(L) 11.8 - 14.8 g/dL 07/10/2018 5:03 AM T [employer] [facility] HEMATOCRIT 35.5 35.5 - 44.0 % 07/10/2018 5:03 AM T [facility] - [facility] MCV 83.5 82.0 - 99.0 fL 07/10/2018 5:03 AM CDT [facility] - . [facility] MCH 25.6(L) 27.2 - 32.6 pg 07/10/2018 5:03 AM CDT [facility]ORAT[facility] SERVICES - [facility] MCHC 30.7(L) 31.5 - 35.5 g/dL 07/10/2018 5:03 AM CDT [facility] - [facility] RDW 19.5(H) 11.5 - 14.5 % 07/10/2018 5:03 AM CDT [facility] SERVICES - . [facility] RDW-STDEV 57.4(H) 37.1 - 48.7 fL 07/10/2018 5:03 AM CDT [facility] [facility] SERVICES - [facility] PLATELETS 205 140 - 350 K/uL 07/10/2018 5:03 AM CDT [facility] SERVICES - . [facility] MPV 9.6 9.3 - 12.4 fL 07/10/2018 5:03 AM CDT [facility] - . [place] NEUTROPHILS 85 % 07/10/2018 5:03 AM CDT [facility] LYMPHOCYTES 6 % 07/10/2018 5:03 AM CDT [facility] - [facility] [place] MONOCYTES 8 % 07/10/2018 5:03 AM CDT [facility] EOSINOPHILS 0 % 07/10/2018 5:03 AM CDT [facility] BASOPHILS 0 % 07/10/2018 5:03 AM CDT [facility] - . [place] IMMATURE GRANULOCYTES 0 % 07/10/2018 5:03 AM CDT [facility] NEUTROPHIL ABSOLUTE 8.61(H) 1.90 - 7.00 K/uL 07/10/2018 5:03 AM CDT [facility] LYMPHOCYTE ABSOLUTE 0.60(L) 0.70 - 4.50 K/uL 07/10/2018 5:03 AM CDT [facility] MONOCYTE ABSOLUTE 0.79 0.10 - 1.30 K/uL 07/10/2018 5:03 AM CDT [facility] - . [place] EOSINOPHIL ABSOLUTE 0.02 0.00 - 0.70 K/uL 07/10/2018 5:03 AM CDT [facility] BASOPHILS ABSOLUTE 0.02 0.00 - 0.20 K/uL 07/10/2018 5:03 AM CDT [facility] IMMATURE GRANULOCYTES ABSOLUTE 0.04(H) 0.00 - 0.03 K/uL 07/10/2018 5:03 AM CDT [facility] Blood Venipuncture / Unknown 07/10/2018 4:05 AM CDT 07/10/2018 4:39 AM CDT Micki King MD HEMATOLOGY ORDERABLE [facility]# [id number] [address] [place] [address] * PATHOLOGY (07/09/2018 10:23 AM CDT) CASE REPORT Surgical Pathology Report ? Case: [id number] ? Authorizing Provider: ??Micki King MD ? Collected: ? 07/09/2018 10:23 AM ? Ordering Location: ? [facility] ?Received: ?07/09/2018 02:02 PM ? Operating Room ? Pathologist: ? Kaila Cruz MD ? Specimens: ?? A) - Periaortic lymph nodes, left, Periaortic Lymph Nodes (Bilateral) ? B) - Uterus, Cervix, Ovaries, bilateral, Fallopian tubes, bilateral ? C) - Pelvic lymph nodes, right ? D) - Pelvic lymph nodes, left ? 8 7:50 AM [facility] [employer] [facility] FINAL DIAGNOSIS Uterus, cervix, hysterectomy: - [...] five lymph nodes (0/5). 8 7:50 AM [facility] IMEN DESCRIPTION (A) Periaortic lymph nodes (bilateral); (B) uterus, cervix, bilateral ovaries and bilateral fallopian tubes; (C) right pelvic lymph nodes; (D) left pelvic lymph nodes. 8 7:50 AM [facility] OPERATIVE PROCEDURE Hysterectomy total da Geeta SI, bilateral salpingo-oophorectom y da Geeta SI, pelvic lymph node staging da Geeta SI. 8 7:50 AM [facility] CLINICAL DIAGNOSIS Endometrial cancer. 8 7:50 AM [facility] GROSS DESCRIPTION The specimens are [...] fimbriated end, and has a pinpoint lumen. Assembler [employer] Heater sections are submitted as follows: B1-anterior cervix; B2 and B3-anterior lower uterine segment, with each section containing an entire endocervical polyp; B4 through B6-anterior endomyometrium with lesion show depth of invasion; B7-posterior cervix; B8-posterior lower uterine segment; B9 through E45-cszpjuhmb endomyometrium with lesion; J42-cweykl endometrial polyp; Z00-khclfqjt of intramural masses; A93-nxapjp right ovary; Q89-hikzn fallopian tube, including the entire fimbriated end; S17-jwwl ovary; T05-peqz fallopian tube, including the entire fimbriated end. [...] node; D4-one bisected lymph node; D5 through R57-vnolxk largest lymph node. CAMILO/asmita 8 7:50 AM [facility] [employer] [facility] MICROSCOPIC DESCRIPTION The slides are labeled [id number] and Jolene Cedillo. Microscopic description substantiates the above cited diagnoses. Additional deeper levels and cytokeratin cocktail stain were performed on one section of the left pelvic lymph nodes. These are negative for tumor. 8 7:50 AM [facility] [employer] [facility] SPECIAL AND IMMUNOPEROXIDASE STAINS This section reports [...] specific and has limitations. 8 7:50 AM [facility] [employer] [facility] SYNOPTIC REPORT ENDOMETRIUM ??(Endometrium - All Specimens) [...] and nonsentinel): ?9 ?? Number of Pelvic [place] Nodes Examined: ?0 ?? Laterality of Pelvic Node(s) Examined: ?Right ?? Laterality of Pelvic Node(s) Examined: ?Left ?? Number of Para-aortic Nodes with Macrometastasis: ?0 ?? Number of Para-aortic Nodes with Micrometastasis: ?0 ?? Number of Para-aortic Nodes with Isolated Tumor Cells: ?0 ?? Total Number of Para-aortic Node(s) Examined (sentinel and nonsentinel): ?3 ?? Number of Para-aortic [place] Nodes Examined: ?0 ?? Laterality of Para-aortic Node(s) Examined: ?Cannot be determined PATHOLOGIC STAGE CLASSIFICATION (pTNM, AJCC 8th Edition) ?? Primary Tumor (pT): ?pT1a ?? Regional Lymph Nodes (pN): ? Category (pN): ?pN0 FIGO STAGE ?? FIGO Stage: ?IA 8 7:50 AM [facility] COMMENT Special stain and/or immunohistochemical results are interpreted with controls that demonstrate appropriate staining reactions. Note on use of immunocytochemistry reagents: This test was developed and its performance characteristic determined by [facility], Department of Laboratory Medicine. It has not [...] WF, WB and WH are performed by [address], [address]. All other case types are performed by [address] [facility] [place], [address]. 8 7:50 AM [facility] Tissue (Periaortic lymph nodes, left) Collection / [...] CDT Micki King MD PATHOLOGY/CYTOLOGY O CHERI [facility] - [facility]# [id number] [address] [place] [address] * VERIFICATION BLOOD GROUP (07/09/2018 7:19 AM CDT) ABO GROUP B 07/09/2018 8:06 AM CDT [facility] RH (D) TYPE Positive 07/09/2018 8:06 AM CDT [facility] Blood Collection / Unknown 07/09/2018 7:19 AM CDT 07/09/2018 7:46 AM CDT Marguerite Hernandez MD BLOOD BANK DANILO WRAY Performing Organization Address City/[facility]/ZIP Co de Phone Number [facility] -- [facility] CLPR# [id number] [address] [place] [address] * PREPARE RED BLOOD CELLS (06/27/2018 11:51 AM CDT) COMPONENT TYPE [id number] [facility] COMPONENT IDENTIFICATION [id number]-* [facility] UNIT ABO B [facility] RH POS [facility] -- [facility] COMPONENT STATUS Returned [facility] SERVICES -- [facility] COMPONENT EXPIRATION DATE/TIME [facility] -- [facility] COMPONENT CODING SYSTEM [facility] [facility] LABORATORY SERVICES -- .[facility] 06/27/2018 11:5 1 AM CDT Micki King MD LAB TRANSFUSION DANILO WRAY Performing Organization Address [facility]/ZIP Co de Phone Number [facility] CLIA# [id number] [address] [place] [address] * PREPARE RED BLOOD CELLS (06/27/2018 11:51 AM CDT) Pathologist [facility] COMPONENT TYPE [id number] [facility] COMPONENT IDENTIFICATION [id number] [facility] UNIT ABO B [facility] -- [facility] UNIT RH POS [facility] COMPONENT STATUS Returned [facility] COMPONENT EXPIRATION DATE/TIME [facility] COMPONENT CODING SYSTEM [address] [facility] 06/27/2018 11:5 1 AM CDT Micki WISE TRANSFUSION DANILO WRAY Performing Organization Address [facility] Co de Phone Number [facility] [id number] [address] [place] [address] documented in this encounter Visit Diagnoses Diagnosis [...] - Floor 1006 (Given - Provid er: Msisy Conley RN) lidocaine PF 2 % (XYLOCAINE [...] RN) documented in this encounter Care Teams Tool Pusher Relationship Specialty Start Date End Date Francisco Long MD PCP - General Internal Medicine 06/27/18 documented as of this encounter
--- OUTSIDE RECORDS SUMMARY | 2024-11-16 15:30 | XMS_ITS | Encounter Summary ---
Author Organization [facility] Healthcare Address [address] [place] [address] Care Team Providers Care Labor Conciliator Name Role Phone Neil Ag MD PhD Unavailable Ita Vazquez MD Unavailable Caron Mohan MD Unavailable Pebbles Felton MD Unavailable [phone] Mariangel Quiñonez MD Primary Care Provide r Encounter Details Date Type Department Care Team (Late st Contact Info) Description 12/06/2023 Telephone [facility] Medical Group Primary Care at [address] [address] Mariangel Quiñonez MD [address] [place] [address] [address] [place] [address] Social History Tobacco Use Types [...] on file Legal Sex Female 12:21 PM DEVELOPMENT MGR Gender Identity Not on file Sexual Orientation Not on file documented as of this encounter Miscellaneous Notes * Telephone Encounter - Kelly Thorpe - 12/10/2023 8:47 AM CST Referral sent, office will contact pt for scheduling. LOPMENT MGR * Telephone Encounter - Chitra Tyson - 12/06/2023 12:20 PM CST Provider Referral Request Requesting Provider: dr baltazar Specialty:physical therapy Specialty Provider/ desired region: did not specify Diagnosis/Reason for referral: left hip pain and lower back pain Additional information: LOPMENT MGR documented in this encounter Plan of Treatment Not on file documented as of this encounter Visit Diagnoses Not on filedocumented in this encounter Care Teams Labor Conciliator Relationship Specialty Start Date End Date Mariangel Quiñonez MD [facility] [address] [address] PCP - General Family Medicine 05/16/22 Neil Ag MD PhD [address] [place] [address] Radiation Oncologist Radiation Oncology 12/17/18 [place] [address] [facility] [address] [place], [place] [id number] Referring Physician General Surgery 12/17/18 [place] [address] [facility] [address] [place], [place] [id number] Medical Oncologist/Tool Analyst Medical Oncology 12/17/18 [place] [address] [facility] [address] [place] [address] Consulting Physician Gastroenterology 01/07/20 documented as of this encounter
--- OUTSIDE RECORDS SUMMARY | 2024-11-16 15:30 | XMS_ITS | Referral Summary ---
Author Organization [facility] Address [address] [place] [address] Care Team Providers Care Trolley Car Operator Name Role Phone Neil Ag MD PhD Unavailable [phone] Ita Vazquez MD Unavailable Caron Mohan MD Unavailable [phone] Pebbles Felton MD Unavailable [phone] Mariangel Quiñonez MD Primary Care Provide r Encounters Date Type Department Care Team Description 09/04/2024 3:30 PM CDT Office Visit [facility] [place] [address] [place] [place] [address] Lisa Rojas NP Rash (Primary Dx) 09/04/2024 Nurse Triage [facility] Primary Care at [address] [place] [address] Pricilla Salter RN from Last [...] daily 90 tablet 1 4 Active iron cmqzni-X-F71-Ca -suc-stoma (MULTIGEN) 70 mg-150 mg-10 mcg-2 mg-75 mg tablet 1 tablet daily Activ e Active Problems Problem Noted Date Diagnosed Date BMI 28.0-28.9,adult 06/26/2024 Left hip pain 12/06/2023 Assessment & Plan (12/06/2023 12:23 PM POTATO PEELING MACHINE OPERATOR): New concern Not at goal Muscle spasm Referral to physical therapy Flexeril 5mg at night Do not operate heavy machinery If no improvement will get xrays and referral to pain management F/u prn Encounter for wellness examination 10/02/2022 Assessment & Plan (12/06/2023 12:02 PM POTATO PEELING MACHINE OPERATOR): Ordered CBC, cmp, lipid, hgb a1c, TSH, Flu declines Zoster declines pcv20 declines Colonoscopy:up to date Pap smear:followed with ob Mammo:follows with Dr. Kimberlee Jordanu in 1 year for annual Assessment & Plan (10/03/2022 10:39 AM POTATO PEELING MACHINE OPERATOR): Ordered CBC, cmp, lipid, hgb a1c, TSH, Flu given today Colonoscopy:up to date Pap smear:follows with ob Mammo:follows with Dr. Kimberlee Silva in 1 year for annual Iron deficiency anemia 01/07/2021 Overview (01/07/2021): Added automatically from request for surgery [id number] Assessment & Plan (06/26/2024 1:16 PM CDT): Stable / clinically quiescent. Will continue to monitor. Iron panel ordered for 6 months Assessment & Plan (12/06/2023 12:20 PM POTATO PEELING MACHINE OPERATOR): Stable / clinically quiescent. Will continue to monitor. Iron panel ordered Acute upper GI bleed 01/03/2021 Overview (01/03/2021): Added automatically from request for surgery [id number] Type 2 diabetes mellitus with hyperlipidemia 03/2021 [...] months Assessment & Plan (12/06/2023 11:44 AM POTATO PEELING MACHINE OPERATOR): The patient was counseled on a heart-healthy, [...] months Assessment & Plan (10/02/2022 9:57 PM POTATO PEELING MACHINE OPERATOR): The patient was counseled on a heart-healthy, [...] 07/02/2020 Assessment & Plan (12/06/2023 7:16 AM POTATO PEELING MACHINE OPERATOR): eliquis was stopped because of hx of GI bleeding Assessment & Plan (10/03/2022 10:17 AM POTATO PEELING MACHINE OPERATOR): eliquis was stopped because of hx of GI bleeding Chronic GERD 07/02/2020 History of breast cancer 07/02/2020 Assessment & Plan (12/06/2023 7:16 AM POTATO PEELING MACHINE OPERATOR): Still follows with Dr. Mohan Continue with letrozole Assessment & Plan (10/03/2022 10:19 AM POTATO PEELING MACHINE OPERATOR): Still follows with Dr. Mohan Continue with letrozole History of uterine cancer 07/02/2020 Assessment & Plan (12/06/2023 7:16 AM POTATO PEELING MACHINE OPERATOR): She follows with ob Assessment & Plan (10/03/2022 10:19 AM POTATO PEELING MACHINE OPERATOR): She follows with ob High risk of cardiac event 07/01/2020 Iron deficiency anemia due to chronic blood loss 01/06/2020 Assessment & Plan (01/06/2020 5:46 AM POTATO PEELING MACHINE OPERATOR): Likely GI source as patient has positive guaiac. Hemoglobin was as high as 11.1 in November. Patient has been seen by GI and 1 unit of PRBCs ordered. Awaiting repeat hemoglobin. Ferrlecit ordered by Dr. Felton already. Continue to monitor. Will hold anticoagulation for now. Chronic diastolic heart failure 12/03/2019 Assessment & Plan (12/06/2023 7:15 AM POTATO PEELING MACHINE OPERATOR): stable Assessment & Plan (10/02/2022 9:56 PM POTATO PEELING MACHINE OPERATOR): stable Malignant neoplasm of upper- inner quadrant of left breast in female, estrogen receptor positive 12/17/2018 Cancer Staging:Pathologic stage from 12/17/2018:Stage IA(pT1b, pN1mi(sn), cM0, G2, ER: Positive, MN: Positive, HER2: Negative) - Signed by Neil Ag MD PhD on 12/17/2018 Assessment & Plan (01/06/2020 5:46 AM POTATO PEELING MACHINE OPERATOR): Hold letrozole for now as it increases risk for thromboembolism. Assessment & Plan (12/02/2019 7:15 PM POTATO PEELING MACHINE OPERATOR): S/p lumpectomy, home letrozole to be replaced with formulary anastrozole while inpatient per pharmacy. Followed by childbirth educator onc as an outpatient. Mixed hyperlipidemia 11/28/2017 Assessment & Plan (12/06/2023 12:19 PM POTATO PEELING MACHINE OPERATOR): Stable / clinically quiescent. Will continue to monitor. Unable to tolerate statin medication at any dose Causes muscle aches Lipid panel ordered Assessment & Plan (04/03/2023 10:57 AM CDT): Stable / clinically quiescent. Will continue to monitor. Continue statin Assessment & Plan (10/02/2022 9:55 PM POTATO PEELING MACHINE OPERATOR): Stable / clinically quiescent. Will continue to monitor. Continue statin Essential hypertension 11/28/2017 Assessment & Plan (06/26/2024 6:59 AM CDT): Bp in the office today BP Readings from Last 1 Encounters: 12/06/23 132/80 Continue current regimen of carvedilol and losartan 100mg daily Recommend DASH diet, heart-healthy lifestyle, exercise. Discussed the risks of hypertension. F/u in 6 months Assessment & Plan (12/06/2023 11:32 AM POTATO PEELING MACHINE OPERATOR): Bp in the office today BP Readings [...] months Assessment & Plan (10/03/2022 10:15 AM POTATO PEELING MACHINE OPERATOR): Bp in the office today BP Readings from Last 1 Encounters: 10/03/22 136/78 Continue current regimen of carvedilol and losartan Recommend DASH diet, heart-healthy lifestyle, exercise. Discussed the risks of hypertension. F/u in1 year Assessment & Plan (01/06/2020 5:42 AM POTATO PEELING MACHINE OPERATOR): Currently normotensive. Continue carvedilol with hold parameters. Holding losartan and hydrochlorothiazide for now. Assessment & Plan (12/02/2019 7:14 PM POTATO PEELING MACHINE OPERATOR): Continue home antihypertensives. Rheumatoid arthritis involvi ng multiple sites with positive rheumatoid factor ([facility]) 11/28/2017 Assessment & Plan (12/06/2023 7:16 AM POTATO PEELING MACHINE OPERATOR): Stable Continue with rheumatology Continue with methotrexate Assessment & Plan (10/03/2022 10:21 AM POTATO PEELING MACHINE OPERATOR): Stable Continue with rheumatology Continue with methotrexate Assessment & Plan (01/06/2020 5:42 AM POTATO PEELING MACHINE OPERATOR): Patient is on methotrexate which she takes on Sunday. Assessment & Plan (12/02/2019 7:16 PM POTATO PEELING MACHINE OPERATOR): Continue home methotrexate, administered weekly on Wednesdays. Hiatal hernia Resolved Problems Problem Noted Date Diagnosed Date Resolved Date Gastrointestinal hemorrhage associated with anorectal source 01/05/2020 07/02/2020 Overview (01/06/2020): Added automatically from request for surgery [id number] Bilateral pulmonary embolism ([facility]) 12/02/2019 07/02/2020 Assessment & Plan (12/02/2019 7:13 PM POTATO PEELING MACHINE OPERATOR): Cause shortness of breath cough, seen on chest CT today. Therapeutic Lovenox started in ED, switched to Eliquis for outpatient therapy. TTE ordered for AM to ensure no right heart strain. Cause unclear at this point, chest CT showed a nodular density in the left breast and recommended follow-up mammogram, however patient had a normal mammogram 3 weeks ago from her childbirth educator onc physician at [facility] (results in Care Everywhere). Encounter for screening colonoscopy 09/29/2019 07/02/2020 Overview (09/29/2019): Added automatically from request for surgery [id number] Malignant neoplasm of uterus ([facility]) 12/17/2018 07/02/2020 Assessment & Plan (12/02/2019 7:15 PM POTATO PEELING MACHINE OPERATOR): S/p hysterectomy. Viral URI with cough 10/30/2018 019 Assessment & Plan (10/30/2018 11:28 AM POTATO PEELING MACHINE OPERATOR): Likely viral based on symptoms. Flonase prescribed, [...] on file Legal Sex Female 12:21 PM POTATO PEELING MACHINE OPERATOR Gender Identity Not on file [...] 12:56 PM CDT COLONOSCOPY 01/07/2020 9:12 AM POTATO PEELING MACHINE OPERATOR DIAGNOSTIC MAMMOGRAM BILATERAL W MOODY Schedule Routine, [...] LDL-C. Harry YUAN et al. RANDALL. 2013;310(19): 8666-0183 (http://education.[employer]/faq/YGG350) Chol/HDL ratio 3.9 <5.0 (calc) [facility] [...] BLOOD ORDERABLES Final Result Performing Organization Address City/State/[facility] Co de Phone Number [facility] [address] [place] [address] * Albumin Creatinine Ratio, Urine (06/20/2024 9:02 AM CDT) Pathologist [facility] Creatinine, ur 105 20 - 275 mg/dL [...] Quiñonez MD LAB URINE ORDERABLES Final Result [facility] [address] [place] [address] * (ABNORMAL) Hemoglobin A1c (06/20/2024 9:02 AM CDT) Hgb A1C 6.5(H) <5.7 % of total Hgb [facility] Comment: For someone without known diabetes, [...] change in test platforms from the Dejesus Trenching Machine Operator to the Jocelynn varun c503 may have shifted HbA1c results compared to historical results. Based on laboratory validation testing conducted at [facility], the Jocelynn platform relative to the Dejesus [...] MD LAB BLOOD ORDERABLES Final Result [facility] [address] [place] [address] * (ABNORMAL) Comprehensive metabolic panel (06/20/2024 9:02 [...] LAB BLOOD ORDERABLES Final Result [facility] [address] [id number] * Dexa Axial Skeleton Bone Density 1 or 2 Site (02/19/2024 9:29 AM CDT) Anatomical Region Laterality Modality Body N/A Other 02/19/2024 4:29 PM CDT Narrative 02/19/2024 4:29 PM CDT EXAM DESCRIPTION: DEXA AXIAL SKELETON BONE DENSITY 1 OR MORE SITES REASON FOR STUDY: 78 y/o ?? year old ??F ??with given history of: ??MENOPAUSE ?? Osteoporosis screening ??Post menopausal ? Advanced Registered Nurse/Model: [employer] SL (S/N 13293) CLINICAL INFORMATION: Current height: ??67 ??inches ? [...] PM T: ??02/19/2024 4:29 PM Report ID: [id number] Reading Location: ??[id number] Procedure Note Caesar Navarro MD - 02/19/2024 EXAM DESCRIPTION: DEXA AXIAL SKELETON BONE DENSITY 1 OR MORE SITES REASON FOR STUDY: 78 y/o year old F with given history of: MENOPAUSE Osteoporosis screening Post menopausal Advanced Registered Nurse/Model: [facility] SL (S/N 44109) CLINICAL INFORMATION: Current height: 67 inches Maximum [...] Caesar Navarro M.D. MF: MAXINE Report ID: [id number] Reading Location: [id number] us Caron Mohan MD IMG DXA PROCEDURES Fi nal Result * DIABETES EYE EXAM (08/28/2023 12:56 PM CDT) SCRIBED DIABETIC DILATED EYE EXAM Normal us Historical Provider HEALTH MAINTENANCE Final Result * COLONOSCOPY (01/07/2020 9:12 AM POTATO PEELING MACHINE OPERATOR) Anatomical Region Laterality Modality Other Narrative Procedure Note Pebbles Felton MD - 01/07/2020 9:12 AM CST [facility] Patient Name: Jolene Gordon Procedure Date: 01/07/2020 9:12 AM Date of : 1945 Admit Type: Inpatient Age: 74 Gender: Female Attending MD: Pebbles Felton M.D. Room: [facility] ENDOSCOPY ROOM 1 Note Status: Finalized Patient [...] passed under direct vision.The Pediatric Colonoscope [id number]-[id number] was introduced through the anus and advanced [...] 9:12 AM Procedure Code(s): --- Professional --- 38806, Colonoscopy, flexible; with removal of tumor(s), polyp(s), or other lesion(s) by snare technique 78886, 59, Colonoscopy, flexible; with biopsy, single or multiple Diagnosis Code(s): --- Professional --- K64.8, Other hemorrhoids D12.0, Benign neoplasm of cecum D12.4, Benign neoplasm of descending colon R19.5, Other fecal abnormalities D50.9, Iron deficiency anemia, unspecified K57.30, Diverticulosis of large intestine without perforation orabscess without bleeding CPT copyright 2017 [employer]. All rights reserved. The codes documented in this report are preliminary and upon survey research center director reviewmay be revised to meet current compliance requirements. Recognized by the [place] [employer] for promoting quality in endoscopy Pebbles Felton MD ENDOSCOPY PROCEDURES Final Result * Diagnostic Mammogram Bilateral W Moody (11/12/2019) Anatomical Region Laterality Modality Breast Bilateral Mammography Narrative 11/12/2019 In care everywhere from [facility] us Historical Provider IMG MAMMO PROCEDURES Humaira l Result * Hepatitis C Antibody Reflex Hepatitis C RNA Quantitative PCR (05/11/2017 5:12 PM CDT) Hep C Ab Negative Negative CERVAHE Blood specimen (specimen) 05/11/2017 5:12 PM CDT 05/11/2017 5:34 PM CDT Francisco Long MD LAB MICROBIOLOGY - GENERAL ORD ERABLES Final Result Performing Organization Address City/State/ZIP [place] Phone Number MEHRAN [phone] Department [place] [address] from Last 3 Months or Most Recently Relevant to Health Maintenance Insurance [facility] MEDICARE CIGNA MEDICARE SUPPLEMENT INSURANCE MEDICARE CIGNA HEALTHCARE COMMERCIAL GENERIC CIGNA MEDICARE SUPPLEMENT INSURANCE AETNA [facility] Advance Directives For more information, please contact: [phone] * Full Code (Latest Code Status on [...] 5:42 PM 01/07/2020 8:26 AM Care Teams Trolley Car Operator Relationship Specialty Start Date End Date Mariangel Quiñonez MD [address] [address] PCP - General Family Medicine 05/16/22 Neil Ag MD PhD [address] [place] [address] Radiation Oncologist Radiation Oncology 12/17/18 [place] [address] [facility] [address] [place] [id number] Referring Physician General Surgery 12/17/18 [place] [address] [facility] [address] [place] [id number] Medical Oncologist/Import Export Coordinator Medical Oncology 12/17/18 [place] [address] [facility] [address] [place] [address] Consulting Physician Gastroenterology 01/07/20
--- OUTSIDE RECORDS SUMMARY | 2024-11-16 15:30 | XMS_ITS | Encounter Summary ---
Author Organization [facility] Address [address] [place] [address] Care Team Providers Care Planisher Name Role Phone Unavailable Primary Care Provider Unavailabl e Encounter Details Date Type Department Care Team (Latest Contact Info) Description 03/28/2016 1:40 PM CDT - 03/28/2016 11:59 PM CDT [facility] [address] [place] [phone] [facility], External Provider [address] [place] [address] Discharge Disposition: Home or Self Care Social [...] CDT Appointment [facility] [address] [place] [address] Caron Mohan MD [address] [place] [address] 03/19/2025 11:30 AM CDT Office Visit [facility] Oncology and Hematology [address] [place] [phone] Caron Mohan MD [address] [facility] [place], [place] [phone] [place] [address] [place] [address] documented as of this encounter Procedures Procedure Name Priority Date/Time Associated Diagnosis Comments MAMMO PRIOR STUDY Routine 03/28/2016 1:4 0 PM CDT Follow up documented in this encounter Results * MAMMO PRIOR STUDY (03/28/2016 1:40 PM CDT) Narrative 09/17/2018 1:39 PM CDT This exam was auto finalized to allow images to be scanned to PACS. External Provider [facility] DIAGNOSTIC IMAGI NG ORDERABLES documented in this encounter Visit Diagnoses Diagnosis Follow up documented in this encounter
--- OUTSIDE RECORDS SUMMARY | 2024-11-16 15:30 | XMS_ITS | Encounter Summary ---
Author Organization [facility] Address [address] [place] [address] Care Team Providers Care Manager Quantitative Name Role Phone Neil Ag MD PhD Unavailable Ita Vazquez MD Unavailable Caron Mohan MD Unavailable Pebbles Felton MD Unavailable [phone] Mairangel Quiñonez MD Primary Care Provide r Reason for Referral * Diagnostic Imaging (Routine) - Closed Specialty Diagnoses / Procedures Referred By Halima garcia Referred To Contact Diagnoses Menopause Procedures Dexa Axial Skeleton Bone Density 1 or 2 Site Caron Mohan MD [address] [facility] [address] [place] [address] Phone: tel: fax: [facility] [address] [place] [address] Referral ID Status Reason Start Date Expiration Date Visits Re quested Visits Authorized [id number] Closed 02/12/2024 03/13/2025 1 1 Reason for Visit * Diagnostic Imaging (Routine) - Closed Specialty Diagnoses / Procedures Referred By Contac t Referred To Contact Diagnoses Menopause Procedures Dexa Axial Skeleton Bone Density 1 or 2 Site Caron Mohan MD [address] [place] [address] Phone: tel: fax: [facility] [address] [place] [address] Referral ID Status Reason Start Date Expiration Date Visits Re quested Visits Authorized [id number] Closed 02/12/2024 03/13/2025 1 1 Encounter Details Date Type Department Care Team (Latest Contact Info) Description 02/19/2024 9:13 AM CDT - 02/19/2024 11:59 PM CDT Hospital Encounter [facility] [address] [place] [address] Menopause Discharge Disposition: Discharge to home or [...] on file Legal Sex Female 12:21 PM POULTRY VACCINATOR Gender Identity Not on file Sexual Orientation [...] ??MENOPAUSE ?? Osteoporosis screening ??Post menopausal ? Harbor Department Manager/Model: [employer] SL (S/N 79213) CLINICAL INFORMATION: Current height: ??67 ??inches ? [...] PM T: ??02/19/2024 4:29 PM Report ID: [id number] Reading Location: ??[id number] Procedure Note Caesar Navarro MD - 02/19/2024 EXAM DESCRIPTION: DEXA AXIAL SKELETON BONE DENSITY 1 OR MORE SITES REASON FOR STUDY: 78 y/o year old F with given history of: MENOPAUSE Osteoporosis screening Post menopausal Harbor Department Manager/Model: [employer] (S/N 56581) CLINICAL INFORMATION: Current height: 67 inches Maximum [...] Caesar Navarro M.D. MF: MAXINE Report ID: [id number] Reading Location: [place] [address] Caron Mohan MD IMG DXA PROCEDURES Fi nal Result documented in this encounter Visit Diagnoses Diagnosis Menopause Symptomatic menopausal or female climacteric states documented in this encounter Care Teams Manager Quantitative Relationship Specialty Start Date End Date Mariangel Quiñonez MD [address] [address] PCP - General Family Medicine 05/16/22 Neil Ag MD PhD 6 [facility] [place] [address] Radiation Oncologist Radiation Oncology 12/17/18 [place] [address] [facility] [address] [place] [address] Referring Physician General Surgery 12/17/18 [place] [address] [facility] [address] [place] [place] [address] Medical Oncologist/Fraud Investigator Medical Oncology 12/17/18 [place] [address] [facility] [address] [place] [address] Consulting Physician Gastroenterology 01/07/20 documented as of this encounter
--- OUTSIDE RECORDS SUMMARY | 2024-11-16 15:30 | XMS_ITS | Encounter Summary ---
Author Organization [facility] Address [address] [place] [address] Care Team Providers Care Lumber Bearer Name Role Phone Unavailable Primary Care Provider Unavailabl e Reason for Visit * Reason Comments Medication Refill Encounter Details Date Type Department Care Team (Late Contact Info) Description 05/13/2018 Refill [facility] Hepatology [address], [address] [place] [address] Amari Chun MD [address] [facility] [address] [facility] [place] [address] Social History Tobacco Use Types [...] CDT Appointment [facility] [address] [place] [phone] Caron Mohan MD [address] [place] [id number] 03/19/2025 11:30 AM CDT Office Visit [facility] Oncology and Hematology [address] [place] [address] Caron Mohan MD [address] [facility]0 [place], [place] [phone] [place] [address] [address] [place] [address] documented as of this encounter Visit Diagnoses Not on filedocumented in this encounter
--- OUTSIDE RECORDS SUMMARY | 2024-11-16 15:30 | XMS_ITS | Encounter Summary ---
Author Organization [facility] Address [address] [place] [address] Care Team Providers Care Entry Engineer Name Role Phone Francisco Long MD Primary Care Provider Unavailabl e Encounter Details Date Type Department Care Team (Latest Contact Info) Description 09/03/2018 1:40 PM CDT - 09/03/2018 11:59 PM CDT Hospital Encounter [facility] [address] [place] [address] [facility], External Provider [address] [place] [place] [address] Discharge Disposition: Home or Self Care Social [...] 10:45 AM CDT Appointment [facility] [address] [place] [address] Caron Mohan MD [address] [place] [address] 03/19/2025 11:30 AM CDT Office Visit [facility] Oncology and Hematology [address] [place] [address] Caron Mohan MD [address] [place], [place] [phone] [place] [address] [place] [address] documented as of this encounter Procedures Procedure Name Priority Date/Time Associated Diagnosis Comments MAMMO PRIOR STUDY Routine 09/03/2018 1:4 0 PM CDT Follow up documented in this encounter Results * MAMMO PRIOR STUDY (09/03/2018 1:40 PM CDT) Narrative 09/17/2018 1:38 PM CDT This exam was auto finalized to allow images to be scanned to PACS. External Provider [facility] DIAGNOSTIC IMAGI NG ORDERABLES documented in this encounter Visit Diagnoses Diagnosis Follow up documented in this encounter Care Teams Entry Engineer Relationship Specialty Start Date End Date Francisco Long MD PCP - General Internal Medicine 06/27/18 documented as of this encounter
--- OUTSIDE RECORDS SUMMARY | 2024-11-16 15:30 | XMS_ITS | Encounter Summary ---
Author Organization [facility] Healthcare Address [address] [place] [address] Care Team Providers Care Bathing Suit Maker Name Role Phone Neil Ag MD PhD Unavailable [phone] Ita Vazquez MD Unavailable Caron Mohan MD Unavailable Pebbles Felton MD Unavailable [phone] Mariangel Quiñonez MD Primary Care Provide r Reason for Visit * Reason Onset Date Comments widespread itching 09/04/2024 Encounter Details Date Type Department Care Team (Late st Contact Info) Description 09/04/2024 Nurse Triage [facility] Medical Group Primary Care at [address] [place] [address] Pricilla Salter RN Social History [...] file 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 Gender Identity Not on file Sexual [...] itching Care Advice Protocols used: Itching - [id number] * Telephone Encounter - Alison Garcia RN - 09/04/2024 9:27 AM CDT Regarding: Rash ----- Message from [employer] sent at 09/04/2024 9:00 AM CDT [...] on filedocumented in this encounter Care Teams Bathing Suit Maker Relationship Specialty Start Date End Date Mariangel Quiñonez MD 2 [facility] [address] [address] PCP - General Family Medicine 05/16/22 Neil Ag MD PhD 6 [facility] [place] [address] Radiation Oncologist Radiation Oncology 12/17/18 [place] [address] [address] [facility] [address] [place] [address] Referring Physician General Surgery 12/17/18 [place] [address] [facility] [address] [place] [address] Medical Oncologist/Rice Milling Supervisor Medical Oncology 12/17/18 [place] [address] [facility] [address] [place] [address] Consulting Physician Gastroenterology 01/07/20 documented as of this encounter
--- OUTSIDE RECORDS SUMMARY | 2024-11-16 15:30 | XMS_ITS | Encounter Summary ---
Author Organization [facility] Address [address] [place] [address] Care Team Providers Care Communications Professor Name Role Phone Francisco Long MD Primary Care Provider Unavailabl e Reason for Visit * Auth/Cert Specialty Diagnoses / Procedures Referred By Contlaura t Referred To Contact Diagnoses ENDOMETRIAL CA Micki Cadena MD NO ADDRESS ON FILE Referral ID Status Reason Start Date Expiration Date Visits Re quested Visits Authorized [id number] 06/24/2018 1 1 Encounter Details Date Type Department Care Team (Late st Contact Info) Description 07/09/2018 9:23 AM CDT Anesthesia Event [facility] Operating Room [address] [place] [address] Scar Brennan MD [address] [place] [address] Anesthesia Record Procedure Summary Procedure [...] Cedillo Age: 72 y.o. Sex: female CSN: [id number] Allergies Allergen Reactions ??? Atorvastatin Muscle Pain [...] Appointment [facility] [address] [place] [phone] Caron Mohan MD [address] [facility] [address] [place] [phone] 03/19/2025 11:30 AM CDT Office Visit [facility] Oncology and Hematology [address] [place] [address] Caron Mohan MD [address] [facility] Suite [facility] [place], [place] [phone] [place] [address] [facility] [address] [place] [address] documented as of this encounter [...] mg documented in this encounter Care Teams Communications Professor Relationship Specialty Start Date End Date Francisco Long MD PCP - General Internal Medicine 06/27/18 documented as of this encounter
--- OUTSIDE RECORDS SUMMARY | 2024-11-16 15:30 | XMS_ITS | Encounter Summary ---
Author Organization [facility] Address [address] [place] [address] Care Team Providers Care .Net Programmer Name Role Phone Francisco Long MD Primary Care Provider Unavailabl e Encounter Details Date Type Department Care Team (Latest Contact Info) Description 06/27/2018 9:21 AM CDT - 06/27/2018 11:59 PM CDT Hospital Encounter [facility] Laboratory Services [address] [place] [address] Micki Cadena MD NO ADDRESS [...] 10:45 AM CDT Appointment [facility] [address] [place] [address] Caron Mohan MD [address] [place] [address] 03/19/2025 11:30 AM CDT Office Visit [facility] Oncology and Hematology [address] [address] [facility] [address] [place] [phone] Caron Mohan MD [address] [place] [address] [place] [address] [facility] [address] [place] [address] documented as of this encounter Procedures Procedure Name Priority Date/Time Associated Diagnosis Comments PATHOLOGY Pathology 06/27/2018 9:23 AM CDT documented in this encounter Results * PATHOLOGY (06/27/2018 9:23 AM CDT) CASE REPORT Surgical Pathology Report ? Case: [id number] ? Authorizing Provider: ??Micki Cadena MD ? Collected: ? 06/27/2018 09:23 AM ? Ordering Location: ? [facility] ?? Received: ?06/27/2018 09:23 AM ? Services [address] ? Pathologist: ? Kaila Cruz MD ? Specimen: ?Other, specify, 1 sl labeled as [id number] ? 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 06/28/2018 10:50 AM [facility] ICAL INFORMATION The patient is a 72 year old woman N93.8 06/28/2018 10:50 AM [facility] MICROSCOPIC DESCRIPTION The slide is labeled [id number] and Jolene Cedillo. Microscopic description substantiates the above cited diagnosis. 06/28/2018 10:50 AM [facility] SUBMITTED BY Dr. Micki Cadena, Women's Oncology [facility], [address] [place] [address] , [address] [address] Cc: [facility], [address] [place] [address]. 06/28/2018 10:50 AM [facility] MATERIAL RECEIVED Received from [facility] is one slide labeled [id number]-Jolene Cedillo. It is derived from an endometrial biopsy performed on 05/31/18 as detailed in the accompanying corresponding surgical pathology report. 06/28/2018 10:50 AM [facility] COMMENT Special stain and/or immunohistochemical results are [...] WF, WB and WH are performed by [address], [address]. All other case types are performed by [facility] [address], [address]. 06/28/2018 10:50 AM CDT [facility] Tissue (Other, specify) 06/27/2018 9:23 AM CDT 06/27/2018 9:23 AM CDT Micki Cadena MD PATHOLOGY/CYTOLOGY O RDERABLES [facility] CLIA# [id number] [address] [facility] [place] [address] documented in this encounter Visit Diagnoses Not on filedocumented in this encounter Care Teams .Net Programmer Relationship Specialty Start Date End Date Francisco Long MD PCP - General Internal Medicine 06/27/18 documented as of this encounter
--- OUTSIDE RECORDS SUMMARY | 2024-11-16 15:30 | XMS_ITS | Encounter Summary ---
Author Organization [facility] Address [address] [place] [address] Care Team Providers Care Public Health Analyst Name Role Phone Francisco Long MD Primary Care Provider Unavailabl e Reason for Referral * Radiology Services (Routine) - Closed Specialty Diagnoses / Procedures Referred By Halima garcia Referred To Contact Diagnoses Breast lump Procedures MAMMO [place] [address] [place] [address] Referral ID Status Reason Start Date Expiration Date Visits Re quested Visits Authorized [id number] Closed 09/13/2018 10/14/2019 1 1 Reason for Visit * Radiology Services (Routine) - Closed Specialty Diagnoses / Procedures Referred By Halima garcia Referred To Contact Diagnoses Breast lump Procedures MAMMO [place] [address] [place] [address] Referral ID Status Reason Start Date Expiration Date Visits Re quested Visits Authorized [id number] Closed 09/13/2018 10/14/2019 1 1 Encounter Details Date Type Department Care Team (Latest Contact Info) Description 09/23/2018 10:04 AM CDT - 09/23/2018 11:59 PM CDT Hospital Encounter [facility] [address] [place] [address] [place] [address] [place] [address] Discharge Disposition: Home or Self [...] RN BS BSN Breast Health Nurse Navigator-[facility] documented in this encounter Plan of Treatment Upcoming Encounters Date Type Department Care Team (Late st Contact Info) Description 03/19/2025 10:45 AM CDT Appointment [facility] [address] [place] [phone] Caron Mohan MD [address] [place] [phone] 03/19/2025 11:30 AM CDT Office Visit [facility] Oncology and Hematology [address] [place] [address] Caron Mohan MD [address] [place] [phone] [place] [address] [address] [place] [address] documented as of this encounter [...] CASE REPORT Surgical Pathology Report ? Case: [id number] ? Authorizing Provider: ??Fortino Coleman MD ?? Collected: ? 09/23/2018 10:30 AM ? Ordering Location: ? [facility] ?Received: ?09/23/2018 01:20 PM ? [address] ? Pathologist: ? Willow Mitchell MD ? Specimen: ?Breast, left ? 09/24/2018 3:25 PM [facility] FINAL DIAGNOSIS Breast, left, core biopsy: - Invasive ductal carcinoma, with the following features: 1. Size: 12 mm. 2. Donnie score: 6/9. 3. Lymphvascular invasion: Not identified. 4. Stage: pT1c. - Biomarker results: ER 8/8 (positive), NE 8/8 (positive), Her2 IHC 1+ (negative). - Low to intermediate grade ductal carcinoma in situ, minute focus, with associated calcifications. 09/24/2018 3:25 PM [facility] IMEN DESCRIPTION Left breast. Tissue obtained at 1030, in formalin at 1032. 09/24/2018 3:25 PM [facility] OPERATIVE PROCEDURE Ultrasound core biopsy left breast. 09/24/2018 3:25 PM [facility] CLINICAL INFORMATION Left breast mass concerning for malignancy. 09/24/2018 3:25 PM [facility] GROSS DESCRIPTION Received in a single container labeled Jolene Cedillo, left breast mass, are three cores of yellow-white, indurated tissue all 0.3 cm in diameter and 1.7, 1.8, 1.7 cm in length. The specimen is submitted entirely in cassettes A1 and A2. ROSCOE/alma 09/24/2018 3:25 PM [facility] MICROSCOPIC DESCRIPTION Received are slides labeled [id number] and Jolene Cedillo. All three tissue cores from the left breast show involvement by invasive ductal carcinoma, 12 mm in maximum dimension. The malignant cells are present as aggregates with focal tubule formation (3), intermediate grade nuclei (2), and a low mitotic rate (1), for a Crouse score 6. Angiolymphatic invasion is not observed. [...] Score = 5/5 Intensity Score = 3/3 NE Total Score (immunohistochemistry ) = 8/8 Proportion Score = 5/5 Intensity Score = 3/3 HER2 membrane staining (Antibody Clone 4B5) is scored on a 0 to 3+ scale in accordance to 2018 CAP/ASCO guidelines. Estrogen and progesterone receptor content is assayed in a semiquantitative manner utilizing the ER antibody (Clone SP1) and NE antibody (Clone 1E2). Results are reported as [...] that is complete and intense ER and NE Total Score 0-2 = negative >= 3 = positive ER and NE Proportion Score (% positive cells) 0 = none 1 = > 0 to < 1% 2 = > or = 1% to 10% 3 = > 10% to 33.3% 4 = > 33.3% to 66.7% 5 = > 66.7% ER and NE Intensity Score (average staining intensity) 0 = none 1 = weak 2 = intermediate 3 = strong * Studies are performed on neutral-buffered formalin-fixed paraffin embedded sections unless otherwise specified. These assays have not been validated on decalcified tissues. Results should be interpreted with caution given the likelihood of false negativity on decalcified tissues. 09/24/2018 3:25 PM CDT [facility] COMMENT Special stain and/or immunohistochemical results are interpreted with controls that demonstrate appropriate staining reactions. Note on use of immunocytochemistry reagents: This test was developed and its performance characteristic determined by [facility], Department of Laboratory Medicine. It has [...] WF, WB and WH are performed by [address], [address]. All other case types are performed by [facility], [address]. 09/24/2018 3:25 PM CDT [facility] Tissue LEFT BREAST STRUCTURE / Unknown 09/23/2018 10:30 AM CDT 09/23/2018 1:20 PM CDT Fortino Coleman MD PATHOLOGY/CYTOLOG Y ORDERABLES [facility] CLIA# [id number] [address] [facility] [place] [address] documented in this encounter Visit Diagnoses Diagnosis [...] Site documented in this encounter Care Teams Public Health Analyst Relationship Specialty Start Date End Date Francisco Long MD PCP - General Internal Medicine 06/27/18 documented as of this encounter
--- OUTSIDE RECORDS SUMMARY | 2024-11-16 15:30 | XMS_ITS | Encounter Summary ---
Author Organization [facility] Healthcare Address [address] [place] [address] Care Team Providers Care Dinkey Driver Name Role Phone Neil Ag MD PhD Unavailable [phone] Ita Vazquez MD Unavailable Caron Mohan MD Unavailable Pebbles Felton MD Unavailable [phone] Mariangel Quiñonez MD Primary Care Provide r Encounter Details Date Type Department Care Team (Late st Contact Info) Description 12/10/[address] 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 Gender Identity Not on file Sexual Orientation Not on file documented as of this encounter Plan of Treatment Not on file documented as of this encounter Visit Diagnoses Diagnosis Left hip pain- Primary Pain in joint, pelvic region and thigh Low back pain, unspecified back pain laterality, unspecified chronicity, unspecified whether sciatica present documented in this encounter Care Teams Dinkey Driver Relationship Specialty Start Date End Date Mariangel Quiñonez MD [address] [address] PCP - General Family Medicine 05/16/22 Neil Ag MD PhD 6 [place] [address] Radiation Oncologist Radiation Oncology 12/17/18 [place] [address] [address] [facility] [address] [id number] Referring Physician General Surgery 12/17/18 [place] [address] [address] [facility] [address] [address] Medical Oncologist/Paint Supervisor Medical Oncology 12/17/18 [place] [address] [facility] [address] [address] Consulting Physician Gastroenterology 01/07/20 documented as of this encounter
--- OUTSIDE RECORDS SUMMARY | 2024-11-16 15:30 | XMS_ITS | Encounter Summary ---
Author Organization [facility] Address [address] [place] [address] Care Team Providers Care Secretary Of State Name Role Phone Francisco Long MD Primary Care Provider Unavailabl e Encounter Details Date Type Department Care Team (Latest Contact Info) Description 09/11/2018 1:40 PM CDT - 09/11/2018 11:59 PM CDT Hospital Encounter [facility] [address] [place] [address] [facility], External Provider [address] [place] [address] Discharge Disposition: Home or Self Care Social [...] 10:45 AM CDT Appointment [facility] [address] [place] [address] Caron Mohan MD [address] [place] [address] 03/19/2025 11:30 AM CDT Office Visit [facility] Oncology and Hematology [address] [place] [address] Caron Mohan MD [address] [place], [place] [phone] [place] [address] [place] [address] documented as of this encounter Procedures Procedure Name Priority Date/Time Associated Diagnosis Comments MAMMO PRIOR STUDY Routine 09/11/2018 1:4 0 PM CDT Follow up documented in this encounter Results * MAMMO PRIOR STUDY (09/11/2018 1:40 PM CDT) Narrative 09/17/2018 1:38 PM CDT This exam was auto finalized to allow images to be scanned to PACS. External Provider [facility] DIAGNOSTIC IMAGI NG ORDERABLES documented in this encounter Visit Diagnoses Diagnosis Follow up documented in this encounter Care Teams Secretary Of State Relationship Specialty Start Date End Date Francisco Long MD PCP - General Internal Medicine 06/27/18 documented as of this encounter
--- OUTSIDE RECORDS SUMMARY | 2024-11-16 15:30 | XMS_ITS | Encounter Summary ---
Author Organization [facility] Address [address] [place] [address] Care Team Providers Care Downstairs Maid Name Role Phone Unavailable Primary Care Provider Unavailabl e Encounter Details Date Type Department Care Team (Latest Contact Info) Description 05/25/2017 1:40 PM CDT - 05/25/2017 11:59 PM CDT [facility] [address] [place] [phone] [facility], External Provider [address] [place] [address] Discharge Disposition: Home or Self Care Social [...] Description 03/19/2025 10:45 AM CDT Appointment [facility] [address] [place] [address] Caron Mohan MD [address] [place] [phone] 03/19/2025 11:30 AM CDT Office Visit [facility] Oncology and Hematology [address] [place] [phone] Caron Mohan MD [address] [facility] [place], [place] [phone] [place] [address] [place] [address] documented as of this encounter Procedures Procedure Name Priority Date/Time Associated Diagnosis Comments MAMMO PRIOR STUDY Routine 05/25/2017 1:4 0 PM CDT Follow up documented in this encounter Results * MAMMO PRIOR STUDY (05/25/2017 1:40 PM CDT) Narrative 09/17/2018 1:38 PM CDT This exam was auto finalized to allow images to be scanned to PACS. External Provider [facility] DIAGNOSTIC IMAGI NG ORDERABLES documented in this encounter Visit Diagnoses Diagnosis Follow up documented in this encounter
--- OUTSIDE RECORDS SUMMARY | 2024-11-16 15:30 | XMS_ITS | Encounter Summary ---
Author Organization [facility] Address [address] [place] [address] Care Team Providers Care Endoscope Technician Name Role Phone Francisco Long MD Primary Care Provider Unavailabl e Encounter Details Date Type Department Care Team (Latest Contact Info) Description 06/27/2018 1:30 PM CDT - 06/27/2018 11:59 PM CDT Hospital Encounter [facility] Xray [address] [id number] Micki Cadena MD NO ADDRESS ON FILE [...] 10:45 AM CDT Appointment [facility] [address] [place] [address] Caron Mohan MD [address] [place] [address] 03/19/2025 11:30 AM CDT Office Visit [facility] [address] [place] [address] Caron Mohan MD [address] [place], [place] [phone] [place] [address] [facility] [address] [place] [address] documented as of this encounter [...] isthmus documented in this encounter Care Teams Endoscope Technician Relationship Specialty Start Date End Date Francisco Long MD PCP - General Internal Medicine 06/27/18 documented as of this encounter
--- OUTSIDE RECORDS SUMMARY | 2024-11-16 15:30 | XMS_ITS | Encounter Summary ---
Author Organization [facility] Healthcare Address [address] [place] [address] Care Team Providers Care Ultrasound Specialist Name Role Phone Neil Ag MD PhD Unavailable [phone] Ita Vazquez MD Unavailable Caron Mohan MD Unavailable Pebbles Felton MD Unavailable [phone] Mariangel Quiñonez MD Primary Care Provide r Reason for Visit * Reason Onset Date Comments Med Refill 12/06/2023 Encounter Details Date Type Department Care Team (Late st Contact Info) Description 12/06/2023 Telephone [facility] Primary Care at [address] [place] [address] Mariangel Quiñonez MD [address] [place] [address] [address] [place] [address] Med Refill Social History Tobacco [...] file 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 It should be one a day. My apologies. I fixed the script OR NET WEB DEVELOPER * Telephone Encounter - Sandra Hernandez MA [...] message need to be routed? Yes-Action Needed OR NET WEB DEVELOPER documented in this encounter Plan of Treatment Not on file documented as of this encounter Visit Diagnoses Not on filedocumented in this encounter Care Teams Ultrasound Specialist Relationship Specialty Start Date End Date Mariangel Quiñonez MD [address] [address] PCP - General Family Medicine 05/16/22 Neil Ag MD PhD 6 [place] [address] Radiation Oncologist Radiation Oncology 12/17/18 [place] [address] [facility] [address] [place], [place] [phone] Referring Physician General Surgery 12/17/18 [place] [address] [facility] [address] [place], [place] [phone] Medical Oncologist/Manager Department Medical Oncology 12/17/18 [place] [address] [facility] [address] [place] [address] Consulting Physician Gastroenterology 01/07/20 documented as of this encounter
--- OUTSIDE RECORDS SUMMARY | 2024-11-16 15:30 | XMS_ITS | Clinical Summary ---
Author Organization [facility] Address [address] [place] [address] Care Team Providers Care Research And Evaluation Manager Name Role Phone Neil Ag MD PhD Unavailable tIa Vazquez MD Unavailable Caron Mohan MD Unavailable Pebblse Felton MD Unavailable [phone] Mariangel Quiñonez MD Primary Care Provide r [...] daily 90 tablet 1 4 Active iron tjwfct-V-U74-Ca -suc-stoma (MULTIGEN) 70 mg-150 mg-10 mcg-2 mg-75 mg tablet 1 tablet daily Activ e Active Problems Problem Noted Date Diagnosed Date BMI 28.0-28.9,adult 06/26/2024 Left hip pain 12/06/2023 Assessment & Plan (12/06/2023 12:23 PM BLISTER PACKAGING MACHINE OPERATOR): New concern Not at goal Muscle spasm Referral to physical therapy Flexeril 5mg at night Do not operate heavy machinery If no improvement will get xrays and referral to pain management F/u prn Encounter for wellness examination 10/02/2022 Assessment & Plan (12/06/2023 12:02 PM BLISTER PACKAGING MACHINE OPERATOR): Ordered CBC, cmp, lipid, hgb a1c, TSH, Flu declines Zoster declines pcv20 declines Colonoscopy:up to date Pap smear:followed with ob Mammo:follows with Dr. Kimberlee Silva in 1 year for annual Assessment & Plan (10/03/2022 10:39 AM BLISTER PACKAGING MACHINE OPERATOR): Ordered CBC, cmp, lipid, hgb a1c, TSH, Flu given today Colonoscopy:up to date Pap smear:follows with ob Mammo:follows with Dr. Kimberlee Silva in 1 year for annual Iron deficiency anemia 01/07/2021 Overview (01/07/2021): Added automatically from request for surgery [id number] Assessment & Plan (06/26/2024 1:16 PM CDT): Stable / clinically quiescent. Will continue to monitor. Iron panel ordered for 6 months Assessment & Plan (12/06/2023 12:20 PM BLISTER PACKAGING MACHINE OPERATOR): Stable / clinically quiescent. Will continue to monitor. Iron panel ordered Acute upper GI bleed 01/03/2021 Overview (01/03/2021): Added automatically from request for surgery [id number] Type 2 diabetes mellitus with hyperlipidemia 03/2021 [...] months Assessment & Plan (12/06/2023 11:44 AM BLISTER PACKAGING MACHINE OPERATOR): The patient was counseled on [...] months Assessment & Plan (10/02/2022 9:57 PM BLISTER PACKAGING MACHINE OPERATOR): The patient was counseled on [...] 07/02/2020 Assessment & Plan (12/06/2023 7:16 AM BLISTER PACKAGING MACHINE OPERATOR): eliquis was stopped because of hx of GI bleeding Assessment & Plan (10/03/2022 10:17 AM BLISTER PACKAGING MACHINE OPERATOR): eliquis was stopped because of hx of GI bleeding Chronic GERD 07/02/2020 History of breast cancer 07/02/2020 Assessment & Plan (12/06/2023 7:16 AM BLISTER PACKAGING MACHINE OPERATOR): Still follows with Dr. Mohan Continue with letrozole Assessment & Plan (10/03/2022 10:19 AM BLISTER PACKAGING MACHINE OPERATOR): Still follows with Dr. Mohan Continue with letrozole History of uterine cancer 07/02/2020 Assessment & Plan (12/06/2023 7:16 AM BLISTER PACKAGING MACHINE OPERATOR): She follows with ob Assessment & Plan (10/03/2022 10:19 AM BLISTER PACKAGING MACHINE OPERATOR): She follows with ob High risk of cardiac event 07/01/2020 Iron deficiency anemia due to chronic blood loss 01/06/2020 Assessment & Plan (01/06/2020 5:46 AM BLISTER PACKAGING MACHINE OPERATOR): Likely GI source as patient has positive guaiac. Hemoglobin was as high as 11.1 in November. Patient has been seen by GI and 1 unit of PRBCs ordered. Awaiting repeat hemoglobin. Ferrlecit ordered by Dr. Felton already. Continue to monitor. Will hold anticoagulation for now. Chronic diastolic heart failure 12/03/2019 Assessment & Plan (12/06/2023 7:15 AM BLISTER PACKAGING MACHINE OPERATOR): stable Assessment & Plan (10/02/2022 9:56 PM BLISTER PACKAGING MACHINE OPERATOR): stable Malignant neoplasm of upper- inner quadrant of left breast in female, estrogen receptor positive 12/17/2018 Cancer Staging:Pathologic stage from 12/17/2018:Stage IA(pT1b, pN1mi(sn), cM0, G2, ER: Positive, IN: Positive, HER2: Negative) - Signed by Neil Ag MD PhD on 12/17/2018 Assessment & Plan (01/06/2020 5:46 AM BLISTER PACKAGING MACHINE OPERATOR): Hold letrozole for now as it increases risk for thromboembolism. Assessment & Plan (12/02/2019 7:15 PM BLISTER PACKAGING MACHINE OPERATOR): S/p lumpectomy, home letrozole to be replaced with formulary anastrozole while inpatient per pharmacy. Followed by security system engineer onc as an outpatient. Mixed hyperlipidemia 11/28/2017 Assessment & Plan (12/06/2023 12:19 PM BLISTER PACKAGING MACHINE OPERATOR): Stable / clinically quiescent. Will continue to monitor. Unable to tolerate statin medication at any dose Causes muscle aches Lipid panel ordered Assessment & Plan (04/03/2023 10:57 AM CDT): Stable / clinically quiescent. Will continue to monitor. Continue statin Assessment & Plan (10/02/2022 9:55 PM BLISTER PACKAGING MACHINE OPERATOR): Stable / clinically quiescent. Will [...] months Assessment & Plan (12/06/2023 11:32 AM BLISTER PACKAGING MACHINE OPERATOR): Bp in the office today [...] months Assessment & Plan (10/03/2022 10:15 AM BLISTER PACKAGING MACHINE OPERATOR): Bp in the office today BP Readings from Last 1 Encounters: 10/03/22 136/78 Continue current regimen of carvedilol and losartan Recommend DASH diet, heart-healthy lifestyle, exercise. Discussed the risks of hypertension. F/u in1 year Assessment & Plan (01/06/2020 5:42 AM BLISTER PACKAGING MACHINE OPERATOR): Currently normotensive. Continue carvedilol with hold parameters. Holding losartan and hydrochlorothiazide for now. Assessment & Plan (12/02/2019 7:14 PM BLISTER PACKAGING MACHINE OPERATOR): Continue home antihypertensives. Rheumatoid arthritis involvi ng multiple sites with positive rheumatoid factor ([facility]) 11/28/2017 Assessment & Plan (12/06/2023 7:16 AM BLISTER PACKAGING MACHINE OPERATOR): Stable Continue with rheumatology Continue with methotrexate Assessment & Plan (10/03/2022 10:21 AM BLISTER PACKAGING MACHINE OPERATOR): Stable Continue with rheumatology Continue with methotrexate Assessment & Plan (01/06/2020 5:42 AM BLISTER PACKAGING MACHINE OPERATOR): Patient is on methotrexate which she takes on Sunday. Assessment & Plan (12/02/2019 7:16 PM BLISTER PACKAGING MACHINE OPERATOR): Continue home methotrexate, administered weekly on Wednesdays. Hiatal hernia Resolved Problems Problem Noted Date Diagnosed Date Resolved Date Gastrointestinal hemorrhage associated with anorectal source 01/05/2020 07/02/2020 Overview (01/06/2020): Added automatically from request for surgery [id number] Bilateral pulmonary embolism ([facility]) 12/02/2019 07/02/2020 Assessment & Plan (12/02/2019 7:13 PM BLISTER PACKAGING MACHINE OPERATOR): Cause shortness of breath cough, seen on chest CT today. Therapeutic Lovenox started in ED, switched to Eliquis for outpatient therapy. TTE ordered for AM to ensure no right heart strain. Cause unclear at this point, chest CT showed a nodular density in the left breast and recommended follow-up mammogram, however patient had a normal mammogram 3 weeks ago from her security system engineer onc physician at [facility] (results in Care Everywhere). Encounter for screening colonoscopy 09/29/2019 07/02/2020 Overview (09/29/2019): Added automatically from request for surgery [id number] Malignant neoplasm of uterus (CMS/HCC) 12/17/2018 07/02/2020 Assessment & Plan (12/02/2019 7:15 PM BLISTER PACKAGING MACHINE OPERATOR): S/p hysterectomy. Viral URI with cough 10/30/2018 019 Assessment & Plan (10/30/2018 11:28 AM BLISTER PACKAGING MACHINE OPERATOR): Likely viral based on symptoms. Flonase prescribed, conservative management advised including use of a nasal rinses, humidifier or paper eyes are along with indication to f/u in office with any worsening symptoms or persistent symptoms. Pre-diabetes 11/28/2017 11/30/2020 Benign hypertension 04/11/2014 12/17/19 19 Overview (03/01/2017): BENIGN HYPERTENSION Encounters Date Type Department Care Team Description 09/04/2024 3:30 PM CDT Office Visit [facility] [address] [place] [address] Lisa Rojas NP Rash (Primary Dx) 09/04/2024 Nurse Triage [facility] Primary Care at [address] [place] [address] Pricilla Salter RN from Last [...] on file Legal Sex Female 12:21 PM BLISTER PACKAGING MACHINE OPERATOR Gender Identity Not on file [...] 12:56 PM CDT COLONOSCOPY 01/07/2020 9:12 AM BLISTER PACKAGING MACHINE OPERATOR DIAGNOSTIC MAMMOGRAM BILATERAL W MOODY [...] LDL-C. Harry YUAN et al. RANDALL. 2013;310(19): 6190-0397 (http://education.JewelStreet/faq/KRJ351) Chol/HDL ratio 3.9 <5.0 (calc) [facility] [...] LAB BLOOD ORDERABLES Final Result [facility] [address] [place] [address] * Albumin Creatinine Ratio, Urine (06/20/2024 9:02 [...] AM CDT 06/20/2024 9:06 AM CDT Narrative [facility] - 06/21/2024 2:32 PM CDT FASTING:YES FASTING: YES Mariangel Quiñonez MD LAB URINE ORDERABLES Final Result [facility] [address] [address] [id number] * (ABNORMAL) Hemoglobin A1c (06/20/2024 9:02 AM CDT) Hgb A1C 6.5(H) <5.7 % of total Hgb [employer] [employer] Comment: For someone without known diabetes, [...] change in test platforms from the De[employer] to the Jocelynn varun c503 may have shifted HbA1c results compared to historical results. Based on laboratory validation testing conducted at [facility], the Jocelynn platform relative to the Dejesus [...] MD LAB BLOOD ORDERABLES Final Result [facility] [address] [place] [address] * (ABNORMAL) Comprehensive metabolic panel (06/20/2024 9:02 [...] BLOOD ORDERABLES Final Result L[facility] [address] [address] [facility] [place] [address] * Dexa Axial Skeleton Bone Density 1 or 2 Site (02/19/2024 9:29 AM CDT) Anatomical Region Laterality Modality Body N/A Other 02/19/2024 4:29 PM CDT Narrative 02/19/2024 4:29 PM CDT EXAM DESCRIPTION: DEXA AXIAL SKELETON BONE DENSITY 1 OR MORE SITES REASON FOR STUDY: 78 y/o ?? year old ??F ??with given history of: ??MENOPAUSE ?? Osteoporosis screening ??Post menopausal ? 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 [...] PM T: ??02/19/2024 4:29 PM Report ID: [id number] Reading Location: ??[id number] Procedure Note Caesar Navarro MD - 02/19/2024 EXAM DESCRIPTION: DEXA AXIAL SKELETON BONE DENSITY 1 OR MORE SITES REASON FOR STUDY: 78 y/o year old F with given history of: MENOPAUSE Osteoporosis screening Post menopausal Toy Designer/Model: [employer] (S/N [id number]) CLINICAL INFORMATION: Current height: 67 inches Maximum [...] Caesar Navarro M.D. MF: MAXINE Report ID: [id number] Reading Location: [id number] us Caron Mohan MD IMXiomy DXA PROCEDURES Fi nal Result * DIABETES EYE EXAM (08/28/2023 12:56 PM CDT) SCRIBED HM DIABETIC DILATED EYE EXAM Normal us Historical Provider HEALTH MAINTENANCE Final Result * COLONOSCOPY (01/07/2020 9:12 AM BLISTER PACKAGING MACHINE OPERATOR) Anatomical Region Laterality Modality Other Narrative Procedure Note Pebbles Felton MD - 01/07/2020 9:12 AM CST [facility] Patient Name: Jolene Cedillo Procedure Date: 01/07/2020 9:12 AM Date of : 1945 Admit Type: Inpatient Age: 74 Gender: Female Attending MD: Pebbles Felton M.D. Room: [facility] ENDOSCOPY ROOM 1 Note Status: Finalized Patient [...] passed under direct vision.The Pediatric Colonoscope [id number]-[id number] was introduced through the anus and advanced [...] 9:12 AM Procedure Code(s): --- Professional --- 70196, Colonoscopy, flexible; with removal of tumor(s), polyp(s), or other lesion(s) by snare technique 19024, 59, Colonoscopy, flexible; with biopsy, single or multiple Diagnosis Code(s): --- Professional --- K64.8, Other hemorrhoids D12.0, Benign neoplasm of cecum D12.4, Benign neoplasm of descending colon R19.5, Other fecal abnormalities D50.9, Iron deficiency anemia, unspecified K57.30, Diverticulosis of large intestine without perforation orabscess without bleeding CPT copyright 2017 [employer]. All rights reserved. The codes documented in this report are preliminary and upon compensation adjuster reviewmay be revised to meet current compliance requirements. Recognized by the [employer] for promoting quality in endoscopy us Pebbles Felton MD ENDOSCOPY PROCEDURES Final Result * Diagnostic Mammogram Bilateral W Moody (11/12/2019) Anatomical Region Laterality Modality Breast Bilateral Mammography Narrative 11/12/2019 In care everywhere from [facility] Historical Provider MD MCNAIR MAMMO PROCEDURES Humaira l Result * Hepatitis C Antibody Reflex Hepatitis C RNA Quantitative PCR (05/11/2017 5:12 PM CDT) Hep C Ab Negative Negative MEHRAN LIZA Blood specimen (specimen) 05/11/2017 5:12 PM CDT 05/11/2017 5:34 PM CDT Francisco Long MD LAB MICROBIOLOGY - GENERAL ORD ERABLES Final Result [facility] [address] [place] [address] from Last 3 Months or Most Recently Relevant to Health Maintenance Insurance [employer] MEDICARE FORMERLY [facility] MEDICARE SUPPLEMENT INSURANCE MEDICARE [facility] HMO/PPO Address: [address] [place] [address] [place] [address] [address] MEDICARE SUPPLEMENT INSURANCE [employer] [facility] ADVANTRA Advance Directives For more information, please contact: [phone] * Full Code (Latest Code Status on [...] 5:42 PM 01/07/2020 8:26 AM Care Teams Research And Evaluation Manager Relationship Specialty Start Date End Date Mariangel Quiñonez MD [address] [place] [address] [place] [address] PCP - General Family Medicine 05/16/22 Neil Ag MD PhD [address] [place] [address] Radiation Oncologist Radiation Oncology 12/17/18 [place] [address] [address] [facility] [address] [place], [place] [id number] Referring Physician General Surgery 12/17/18 [place] [address] [facility] [address] [place], [place] [id number] Medical Oncologist/Industrial Organization Manager Medical Oncology 12/17/18 [place] [address] [facility] [address] [place], [place] [id number] Consulting Physician Gastroenterology 01/07/20
--- OUTSIDE RECORDS SUMMARY | 2024-11-16 15:30 | XMS_ITS | Encounter Summary ---
Author Organization [facility] Address [address] [place] [address] Care Team Providers Care Flare Breaker Name Role Phone Neil Ag MD PhD Unavailable Ita Vazquez MD Unavailable Caron Mohan MD Unavailable Pebbles Felton MD Unavailable [phone] Mariangel Quiñonez MD Primary Care Provide r Reason for Visit * Reason Comments Hypertension 6mo f/u Diabetes Encounter Details Date Type Department Care Team (Late st Contact Info) Description 06/26/2024 1:00 PM CDT Office Visit [facility] Primary Care at [address] [place] [address] Mariangel Quiñonez MD [address] [place] [address] [address] [place] [address] Essential hypertension (Primary Dx); Type 2 diabetes [...] file Legal Sex Female 12:21 PM ASSISTANT ACCOUNT EXECUTIVE Gender Identity Not on file Sexual Orientation [...] MD - 06/26/2024 1:00 PM CDT My medical billing supervisor and I are thankful you have trusted [...] through Care Everywhere. * Iron Rich Diet (Tipple Engineer) (Lithuanian) documented in this encounter Progress Notes * [...] reflect changes made after this encounter. iron hmdoha-I-Z60-Ca-s uc-stoma (MULTIGEN) 70 mg-150 mg-10 mcg-2 mg-75 mg tablet 1 tablet daily added in this encounter Care Teams Flare Breaker Relationship Specialty Start Date End Date Mariangel Quiñonez MD 2 [facility] [address] [address] PCP - General Family Medicine 05/16/22 Neil Ag MD PhD [address] [facility] [place] [address] Radiation Oncologist Radiation Oncology 12/17/18 [place] [address] [facility] [address] [place] [address] Referring Physician General Surgery 12/17/18 [place] [address] [address] Medical Oncologist/Adhesive Bonding Machine Operator Medical Oncology 12/17/18 [place] [address] [place] [place] [address] Consulting Physician Gastroenterology 01/07/20 documented as of this encounter
--- OUTSIDE RECORDS SUMMARY | 2024-11-16 15:30 | XMS_ITS | Encounter Summary ---
Author Organization [facility] Address [address] [place] [address] Care Team Providers Care Tungsten Refiner Name Role Phone Francisco Long MD Primary Care Provider Unavailabl e Reason for Visit * Auth/Cert Specialty Diagnoses / Procedures Referred By Halima t Referred To Contact Diagnoses ENDOMETRIAL CA Micki King MD NO ADDRESS ON FILE Referral ID Status Reason Start Date Expiration Date Visits Re quested Visits Authorized [id number] 06/24/2018 1 1 Encounter Details Date Type Department Care Team (Late st Contact Info) Description 07/09/2018 8:44 AM CDT - 07/09/2018 12:[address] [facility] Operating Room [address] [place] [address] Micki King MD NO ADDRESS [...] 72 y.o. Gender female Date of 1945 [facility] [id number] Attending Physician No att. providers found Discharging [...] Your Medications These medications were sent to [address] [address] Hours: Sunday-Sunday: 8 a.m. - 8 p.m., [...] King MD - 07/10/2018 1:54 PM CDT ACCOUNTS SPECIALIST ONC Doing well. Tolerating diet. No nausea [...] Office in 2 weeks. Micki King MD [phone] (cell) * Brenda Schrader RN - 07/09/2018 11:43 PM CDT ADULT IV Flush Protocol [facility] ORDERS ARE ENTERED ???PER PROTOCOL?? Enter [...] - 07/09/2018 9:28 AM CDT Operative Report [place], [place] Patient: Jolene Cedillo / 72 y.o. / female : 1945 Date: 07/09/2018 [facility]: [id number] Preoperative Diagnosis: Endometrial cancer, endometrioid type, grade 1 Postoperative Diagnosis: Same, final path pending. Procedure Performed: DAVINCI TLH, BSO, BPPLND Surgeon: Micki King MD Surgical Staff: Floor Coverer: Audi Johnson RN Scrub: Sharath Lubin ST [...] perineum.?? Mcguire was placed using sterile technique.?? Climax speculum was placed in the vagina.?? Cervix was visualized and grasped with single-tooth tenaculum.?? Uterus and cervix were then sounded to 8 cm.?? The cervical os was dilated to #16 F dilator.?? The medium VCare was placed into the uterus and locked into position with the ambulatory nurse supplied locking clip.?? Attention was then turned [...] then attended to the patient from the Metaforic console. The peritoneum overlying the aorta was [...] diagnosis. Next, the vagina was closed in wjwucolf-ni-nuacbxbdv direction, starting at 12 o'clock and working [...] to admission, [place] with 3 steps to [...] Type: Medicare / The patient's preferred pharmacy [facility] [address] [place] [address] [address] Discussed discharge goals and possible discharge needs including home selfcare vs home with ivonnessist. Care Management contact information provided. Care Management will continue to follow and assist asneeded. Maureen Sarmiento RN/[facility] Management [phone] * Care Plan - Brenda Schrader RN [...] pain/comfort utilizing verbal/nonverbal pain scales; assess culturalor adventism indicators attached to pain; administer pain medications [...] pain/comfort utilizing verbal/nonverbal pain scales; assess culturalor adventism indicators attached to pain; administer pain medications as prescribed; utilize non-pharmacologic pain control and comfort measures Expected Outcome: Patient demonstrates and reports adequate pain control Outcome Met: denies any pain documented in this encounter Plan of Treatment Upcoming Encounters Date Type Department Care Team (Late st Contact Info) Description 03/19/2025 10:45 AM CDT Appointment [facility] [address] [place] [phone] Caron Mohan MD [address] [place] [address] 03/19/2025 11:30 AM CDT Office Visit [facility] Oncology and Hematology Justin [address] [place] [phone] Caron Mohan MD [address] [place] [address] [place] [address] [place] [address] documented as of this encounter [...] - 145 mmol/L 07/10/2018 5:09 AM CDT [facility] POTASSIUM 3.8 3.5 - 5.0 mmol/L 07/10/2018 5:09 AM CDT [facility] CHLORIDE 100 98 - 107 mmol/L 07/10/2018 5:09 AM CDT [facility] CO2 26 22 - 29 mmol/L 07/10/2018 5:09 AM [facility] CALCIUM 8.4(L) 8.6 - 10.2 mg/dL 07/10/2018 5:09 AM [facility] BUN 8 8 - 23 mg/dL 07/10/2018 5:09 AM [facility] CREATININE 0.73 0.51 - 0.95 mg/dL 07/10/2018 5:09 AM T [facility] Comment: The GFR result is not clinically significant on patients <18 or >70 years of age. GLUCOSE 140(H) 74 - 99 mg/dL 07/10/2018 5:09 AM [facility] GFR >60 mL/min/1.7 3 sq meter 07/10/2018 5:09 AM [facility] Comment: eGFR has not been [...] 3 sq meter 07/10/2018 5:09 AM T [facility] ANION GAP 11 8 - 16 mmol/L 07/10/2018 5:09 AM T [facility] Blood Venipuncture / Unknown 07/10/2018 4:05 AM CDT 07/10/2018 4:39 AM CDT Micki King MD CHEMISTRY ORDERABLES [facility] CLIA# [id number] [facility] [place] [address] * (ABNORMAL) CBC WITH DIFFERENTIAL (07/10/2018 4:05 AM CDT) WBC 10.1(H) 4.0 - 9.8 K/uL 07/10/2018 5:03 AM CDT [facility] - . [facility] RBC 4.25 3.90 - 4.90 M/uL 07/10/2018 5:03 AM CDT [facility] - . [facility] HEMOGLOBIN 10.9(L) 11.8 - 14.8 g/dL 07/10/2018 5:03 AM CDT [facility] HEMATOCRIT 35.5 35.5 - 44.0 % 07/10/2018 5:03 AM CDT [facility] - . [facility] MCV 83.5 82.0 - 99.0 fL 07/10/2018 5:03 AM CDT [facility] MCH 25.6(L) 27.2 - 32.6 pg 07/10/2018 5:03 AM CDT [facility] MCHC 30.7(L) 31.5 - 35.5 g/dL 07/10/2018 5:03 AM CDT [facility] RDW 19.5(H) 11.5 - 14.5 % 07/10/2018 5:03 AM CDT [facility] RDW-STDEV 57.4(H) 37.1 - 48.7 fL 07/10/2018 5:03 AM CDT [facility] - . [facility] PLATELETS 205 140 - 350 K/uL 07/10/2018 5:03 AM CDT [facility] - . [facility] MPV 9.6 9.3 - 12.4 fL 07/10/2018 5:03 AM CDT [facility] - [facility] NEUTROPHILS 85 % 07/10/2018 5:03 AM CDT [facility] LYMPHOCYTES 6 % 07/10/2018 5:03 AM CDT [facility] MONOCYTES 8 % 07/10/2018 5:03 AM CDT [facility] EOSINOPHILS 0 % 07/10/2018 5:03 AM CDT [facility] BASOPHILS 0 % 07/10/2018 5:03 AM CDT [facility] IMMATURE GRANULOCYTES 0 % 07/10/2018 5:03 AM CDT [facility] NEUTROPHIL ABSOLUTE 8.61(H) 1.90 - 7.00 K/uL 07/10/2018 5:03 AM CDT [facility] - . [facility] LYMPHOCYTE ABSOLUTE 0.60(L) 0.70 - 4.50 K/uL 07/10/2018 5:03 AM CDT [facility] - . [place] MONOCYTE ABSOLUTE 0.79 0.10 - 1.30 K/uL 07/10/2018 5:03 AM CDT [facility] - . [place] EOSINOPHIL ABSOLUTE 0.02 0.00 - 0.70 K/uL 07/10/2018 5:03 AM CDT [facility] - . [place] BASOPHILS ABSOLUTE 0.02 0.00 - 0.20 K/uL 07/10/2018 5:03 AM CDT [facility] - . [facility] IMMATURE GRANULOCYTES ABSOLUTE 0.04(H) 0.00 - 0.03 K/uL 07/10/2018 5:03 AM CDT [facility] Blood Venipuncture / Unknown 07/10/2018 4:05 AM CDT 07/10/2018 4:39 AM CDT Micki King MD HEMATOLOGY ORDERABLE S Performing Organization Address City/State/[facility] Co de Phone Number [facility]# [id number] [address] [place] [address] * PATHOLOGY (07/09/2018 10:23 AM CDT) CASE REPORT Surgical Pathology Report ? Case: [id number] ? Authorizing Provider: ??Micki King MD ? Collected: ? 07/09/2018 10:23 AM ? Ordering Location: ? [facility] ?Received: ?07/09/2018 02:02 PM ? Operating Room ? Pathologist: ? Kaila Cruz, MD ? Specimens: ?? A) - Periaortic lymph nodes, left, Periaortic Lymph Nodes (Bilateral) ? B) - Uterus, Cervix, Ovaries, bilateral, Fallopian tubes, bilateral ? C) - Pelvic lymph nodes, right ? D) - Pelvic lymph nodes, left ? 8 7:50 AM CDT [facility] FINAL DIAGNOSIS Uterus, cervix, hysterectomy: - [...] five lymph nodes (0/5). 8 7:50 AM [facility] IMEN DESCRIPTION (A) Periaortic lymph nodes (bilateral); (B) uterus, cervix, bilateral ovaries and bilateral fallopian tubes; (C) right pelvic lymph nodes; (D) left pelvic lymph nodes. 8 7:50 AM [facility] OPERATIVE PROCEDURE Hysterectomy total da Geeta SI, bilateral salpingo-oophorectom y da Geeta SI, pelvic lymph node staging da Geeta SI. 8 7:50 AM [facility] CLINICAL DIAGNOSIS Endometrial cancer. 8 7:50 AM [facility] GROSS DESCRIPTION The specimens are received in [...] fimbriated end, and has a pinpoint lumen. Sales Representative Sales Manager sections are submitted as follows: B1-anterior cervix; B2 and B3-anterior lower uterine segment, with each section containing an entire endocervical polyp; B4 through B6-anterior endomyometrium with lesion show depth of invasion; B7-posterior cervix; B8-posterior lower uterine segment; B9 through F69-vxxjrntpv endomyometrium with lesion; I61-egqodd endometrial polyp; B99-wjzsjopg of intramural masses; X81-mgccfd right ovary; D36-wvqig fallopian tube, including the entire fimbriated end; H55-bsac ovary; A58-ogbc fallopian tube, including the entire fimbriated end. [...] node; D4-one bisected lymph node; D5 through V50-vfskbe largest lymph node. CAMILO/asmita 8 7:50 AM [facility] MICROSCOPIC DESCRIPTION The slides are labeled [id number] and Jolene Cedillo Microscopic description substantiates the above cited diagnoses. Additional deeper levels and cytokeratin cocktail stain were performed on one section of the left pelvic lymph nodes. These are negative for tumor. 8 7:50 AM [facility] SPECIAL AND IMMUNOPEROXIDASE STAINS This section reports [...] specific and has limitations. 8 7:50 AM [facility] SYNOPTIC REPORT ENDOMETRIUM ??(Endometrium - All Specimens) [...] and nonsentinel): ?9 ?? Number of Pelvic [place] Nodes Examined: ?0 ?? Laterality of Pelvic Node(s) Examined: ?Right ?? Laterality of Pelvic Node(s) Examined: ?Left ?? Number of Para-aortic Nodes with Macrometastasis: ?0 ?? Number of Para-aortic Nodes with Micrometastasis: ?0 ?? Number of Para-aortic Nodes with Isolated Tumor Cells: ?0 ?? Total Number of Para-aortic Node(s) Examined (sentinel and nonsentinel): ?3 ?? Number of Para-aortic [place] Nodes Examined: ?0 ?? Laterality of Para-aortic Node(s) Examined: ?Cannot be determined PATHOLOGIC STAGE CLASSIFICATION (pTNM, AJCC 8th Edition) ?? Primary Tumor (pT): ?pT1a ?? Regional Lymph Nodes (pN): ? Category (pN): ?pN0 FIGO STAGE ?? FIGO Stage: ?IA 8 7:50 AM CDT [facility] COMMENT Special stain and/or immunohistochemical results are interpreted with controls that demonstrate appropriate staining reactions. Note on use of immunocytochemistry reagents: This test was developed and its performance characteristic determined by [facility], Department of Laboratory Medicine. It has [...] WF, WB and WH are performed by [address], [address]. All other case types are performed by [place] [address] [facility] [address]. 7:50 AM CDT [facility] Tissue (Periaortic lymph nodes, left) Collection [...] CDT Micki King MD PATHOLOGY/CYTOLOGY O [facility] CLIA# [id number] [address] [place] [address] [place] [address] * VERIFICATION BLOOD GROUP (07/09/2018 7:19 AM CDT) ABO GROUP B 07/09/2018 8:06 AM CDT [facility] RH (D) TYPE Positive 07/09/2018 8:06 AM CDT [facility] Blood Collection / Unknown 07/09/2018 7:19 AM CDT 07/09/2018 7:46 AM CDT Marguerite Hernandez MD BLOOD BANK DANILO WRAY [facility] CLIA# [id number] [address] [place] [address] * PREPARE RED BLOOD CELLS (06/27/2018 11:51 AM CDT) COMPONENT TYPE [id number] [facility] COMPONENT IDENTIFICATION [id number] [facility] UNIT ABO B [facility] RH POS [facility] COMPONENT STATUS Returned [facility] COMPONENT EXPIRATION DATE/TIME [facility] COMPONENT CODING SYSTEM [facility] 06/27/2018 11:5 1 AM CDT Micki King MD LAB TRANSFUSION [facility] CLIA# [id number] [address] [place] [address] * PREPARE RED BLOOD CELLS (06/27/2018 11:51 AM CDT) COMPONENT TYPE [id number] [facility] COMPONENT IDENTIFICATION [id number] [facility] UNIT ABO B [facility] UN[facility] RH POS [facility] COMPONENT STATUS Returned [facility] COMPONENT EXPIRATION DATE[facility] COMPONENT CODING SYSTEM [address] [facility] 06/27/2018 11:5 1 AM CDT Micki King MD LAB TRANSFUSION [facility] CLIA# [id number] [address] [place] [address] documented in this encounter Visit Diagnoses Not [...] Provider: ALEX Steel)1255 (Stopped - Provider: ALEX tSeel) dextrose 5 % in water 250 mL [...] RN) documented in this encounter Care Teams Tungsten Refiner Relationship Specialty Start Date End Date Francisco Long MD PCP - General Internal Medicine 06/27/18 documented as of this encounter
--- OUTSIDE RECORDS SUMMARY | 2024-11-16 15:30 | XMS_ITS | Encounter Summary ---
Author Organization [facility] Address [address] [place] [address] Care Team Providers Care Rapier Insertion Loom Fixer Name Role Phone Neil Ag MD PhD Unavailable Ita Vazquez MD Unavailable Caron Mohan MD Unavailable Pebbles Felton MD Unavailable [phone] Mariangel Quiñonez MD Primary Care Provide r Encounter Details Date Type Department Care Team (Late st Contact Info) Description 12/06/2023 Orders Only [facility] Primary Care at [address] [place] [address] Mariangel Quiñonez MD [address] [place] [address] [address] [place], [place] [id number] 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) [...] on file Legal Sex Female 12:21 PM HELPER/DRIVER Gender Identity Not on file Sexual Orientation [...] LAB BLOOD ORDERABLES Final Result [facility] [address] [place] [address] * (ABNORMAL) Ferritin (06/20/2024 9:02 AM CDT) Ferritin 9(L) 16 - 288 ng/mL [facility] Blood 06/20/2024 9:02 AM CDT 06/20/2024 9:06 AM CDT Narrative [facility] - 06/21/2024 2:32 PM CDT FASTING:YES FASTING: YES Mariangel Quiñonez MD LAB BLOOD ORDERABLES Final Result [facility] [place] [address] [phone] * (ABNORMAL) Hemoglobin A1c (06/20/2024 9:02 AM CDT) Hgb A1C 6.5(H) <5.7 % of total Hgb [facility] Comment: For someone without known diabetes, [...] change in test platforms from the Dejesus Animal Trainer Supervisor to the Jocelynn varun c503 may have shifted HbA1c results compared to historical results. Based on laboratory validation testing conducted at [facility], the Jocelynn platform relative to the Dejesus [...] BLOOD ORDERABLES Final Result Performing Organization Address [facility] Co de Phone Number [facility] [address] [place] [address] * Albumin Creatinine Ratio, Urine (06/20/2024 9:02 [...] URINE ORDERABLES Final Result Performing Organization Address [facility] de Phone Number [facility] [address] [place] [address] * T4, free (06/20/2024 9:02 AM CDT) Free T4 1.1 0.8 - 1.8 ng/dL [facility] Blood 06/20/2024 9:02 AM CDT 06/20/2024 9:06 AM CDT Narrative [facility] - 06/21/2024 2:32 PM CDT FASTING:YES FASTING: YES Mariangel Quiñonez MD LAB BLOOD ORDERABLES Final Result Performing Organization Address [facility] Co de Phone Number [facility] [address] [place] [address] * TSH (06/20/2024 9:02 AM CDT) Pathologist [facility] TSH 3.08 0.40 - 4.50 mIU/L [facility] Blood 06/20/2024 9:02 AM CDT 06/20/2024 9:06 AM CDT Narrative [facility] - 06/21/2024 2:32 PM CDT FASTING:YES FASTING: YES Mariangel Quiñonez MD LAB BLOOD ORDERABLES Final Result Performing Organization Address [facility] Co de Phone Number [facility] [address] [place] [address] * (ABNORMAL) Lipid panel with reflex to direct LDL (06/20/2024 9:02 AM CDT) Pathologist [facility] Cholesterol 248(H) <200 mg/dL [facility] [...] LDL-C. Harry YUAN et al. RANDALL. 2013;310(19): 2419-7588 (http://education.GeoGRAFI.Vimty/faq/EKX847) Chol/HDL ratio 3.9 <5.0 (calc) [facility] [...] MD LAB BLOOD ORDERABLES Final Result [facility] [address] [phone] * (ABNORMAL) Comprehensive metabolic panel (06/20/2024 9:02 [...] LAB BLOOD ORDERABLES Final Result [facility] [address] [place] [address] * (ABNORMAL) CBC with auto differential (06/20/2024 [...] LAB BLOOD ORDERABLES Final Result [facility] [address] [place] [address] documented in this encounter Visit Diagnoses Diagnosis 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)- Primary Essential hypertension Unspecified essential hypertension Mixed hyperlipidemia Iron deficiency anemia due to chronic blood loss Iron deficiency anemia secondary to blood loss (chronic) documented in this encounter Care Teams Rapier Insertion Loom Fixer Relationship Specialty Start Date End Date Mariangel Quiñonez MD [address] [facility] [address] [address] PCP - General Family Medicine 05/16/22 Neil Ag MD PhD [address] [facility] [place] [address] Radiation Oncologist Radiation Oncology 12/17/18 [place] [address] [id number] Referring Physician General Surgery 12/17/18 [place] [address] [address] [address] Medical Oncologist/Insulation Inspector Medical Oncology 12/17/18 [place] [address] [address] [place] [address] Consulting Physician Gastroenterology 01/07/20 documented as of this encounter
--- OUTSIDE RECORDS SUMMARY | 2024-11-16 15:30 | XMS_ITS ---
Author Organization [facility] Address [address] [place] [address] Care Team Providers Care Toy Assembly Supervisor Name Role Phone Neil Ag MD PhD Unavailable Ita Vazquez MD Unavailable Caron Mohan MD Unavailable Pebbles Felton MD Unavailable [phone] Mariangel Quiñonez MD Primary Care Provide r Active Problems Problem Noted Date Diagnosed Date BMI 28.0-28.9,adult 06/26/2024 Left hip pain 12/06/2023 Assessment & Plan (12/06/2023 12:23 PM CLIENT MANAGER LARGE LAW): New concern Not at goal Muscle spasm Referral to physical therapy Flexeril 5mg at night Do not operate heavy machinery If no improvement will get xrays and referral to pain management F/u prn Encounter for wellness examination 10/02/2022 Assessment & Plan (12/06/2023 12:02 PM CLIENT MANAGER LARGE LAW): Ordered CBC, cmp, lipid, hgb a1c, TSH, Flu declines Zoster declines pcv20 declines Colonoscopy:up to date Pap smear:followed with ob Mammo:follows with Dr. Mohan F/u in 1 year for annual Assessment & Plan (10/03/2022 10:39 AM CLIENT MANAGER LARGE LAW): Ordered CBC, cmp, lipid, hgb a1c, TSH, Flu given today Colonoscopy:up to date Pap smear:follows with ob Mammo:follows with Dr. Mohan F/u in 1 year for annual Iron deficiency anemia 01/07/2021 Overview (01/07/2021): Added automatically from request for surgery [id number] Assessment & Plan (06/26/2024 1:16 PM CDT): Stable / clinically quiescent. Will continue to monitor. Iron panel ordered for 6 months Assessment & Plan (12/06/2023 12:20 PM CLIENT MANAGER LARGE LAW): Stable / clinically quiescent. Will continue to monitor. Iron panel ordered Acute upper GI bleed 01/03/2021 Overview (01/03/2021): Added automatically from request for surgery [id number] Type 2 diabetes mellitus with hyperlipidemia 03/2021 [...] months Assessment & Plan (12/06/2023 11:44 AM CLIENT MANAGER LARGE LAW): The patient was counseled on a heart-healthy, [...] months Assessment & Plan (10/02/2022 9:57 PM CLIENT MANAGER LARGE LAW): The patient was counseled on a heart-healthy, [...] 07/02/2020 Assessment & Plan (12/06/2023 7:16 AM CLIENT MANAGER LARGE LAW): eliquis was stopped because of hx of GI bleeding Assessment & Plan (10/03/2022 10:17 AM CLIENT MANAGER LARGE LAW): eliquis was stopped because of hx of GI bleeding Chronic GERD 07/02/2020 History of breast cancer 07/02/2020 Assessment & Plan (12/06/2023 7:16 AM CLIENT MANAGER LARGE LAW): Still follows with Dr. Mohan Continue with letrozole Assessment & Plan (10/03/2022 10:19 AM CLIENT MANAGER LARGE LAW): Still follows with Dr. Mohan Continue with letrozole History of uterine cancer 07/02/2020 Assessment & Plan (12/06/2023 7:16 AM CLIENT MANAGER LARGE LAW): She follows with ob Assessment & Plan (10/03/2022 10:19 AM CLIENT MANAGER LARGE LAW): She follows with ob High risk of cardiac event 07/01/2020 Iron deficiency anemia due to chronic blood loss 01/06/2020 Assessment & Plan (01/06/2020 5:46 AM CLIENT MANAGER LARGE LAW): Likely GI source as patient has positive guaiac. Hemoglobin was as high as 11.1 in November. Patient has been seen by GI and 1 unit of PRBCs ordered. Awaiting repeat hemoglobin. Ferrlecit ordered by Dr. Felton already. Continue to monitor. Will hold anticoagulation for now. Chronic diastolic heart failure 12/03/2019 Assessment & Plan (12/06/2023 7:15 AM CLIENT MANAGER LARGE LAW): stable Assessment & Plan (10/02/2022 9:56 PM CLIENT MANAGER LARGE LAW): stable Malignant neoplasm of upper- inner quadrant of left breast in female, estrogen receptor positive 12/17/2018 Cancer Staging:Pathologic stage from 12/17/2018:Stage IA(pT1b, pN1mi(sn), cM0, G2, ER: Positive, OR: Positive, HER2: Negative) - Signed by Neil Ag MD PhD on 12/17/2018 Assessment & Plan (01/06/2020 5:46 AM CLIENT MANAGER LARGE LAW): Hold letrozole for now as it increases risk for thromboembolism. Assessment & Plan (12/02/2019 7:15 PM CLIENT MANAGER LARGE LAW): S/p lumpectomy, home letrozole to be replaced with formulary anastrozole while inpatient per pharmacy. Followed by cma or lpn onc as an outpatient. Mixed hyperlipidemia 11/28/2017 Assessment & Plan (12/06/2023 12:19 PM CLIENT MANAGER LARGE LAW): Stable / clinically quiescent. Will continue to monitor. Unable to tolerate statin medication at any dose Causes muscle aches Lipid panel ordered Assessment & Plan (04/03/2023 10:57 AM CDT): Stable / clinically quiescent. Will continue to monitor. Continue statin Assessment & Plan (10/02/2022 9:55 PM CLIENT MANAGER LARGE LAW): Stable / clinically quiescent. Will continue to monitor. Continue statin Essential hypertension 11/28/2017 Assessment & Plan (06/26/2024 6:59 AM CDT): Bp in the office today BP Readings from Last 1 Encounters: 12/06/23 132/80 Continue current regimen of carvedilol and losartan 100mg daily Recommend DASH diet, heart-healthy lifestyle, exercise. Discussed the risks of hypertension. F/u in 6 months Assessment & Plan (12/06/2023 11:32 AM CLIENT MANAGER LARGE LAW): Bp in the office today BP Readings [...] months Assessment & Plan (10/03/2022 10:15 AM CLIENT MANAGER LARGE LAW): Bp in the office today BP Readings from Last 1 Encounters: 10/03/22 136/78 Continue current regimen of carvedilol and losartan Recommend DASH diet, heart-healthy lifestyle, exercise. Discussed the risks of hypertension. F/u in1 year Assessment & Plan (01/06/2020 5:42 AM CLIENT MANAGER LARGE LAW): Currently normotensive. Continue carvedilol with hold parameters. Holding losartan and hydrochlorothiazide for now. Assessment & Plan (12/02/2019 7:14 PM CLIENT MANAGER LARGE LAW): Continue home antihypertensives. Rheumatoid arthritis involvi ng multiple sites with positive rheumatoid factor ([facility]) 11/28/2017 Assessment & Plan (12/06/2023 7:16 AM CLIENT MANAGER LARGE LAW): Stable Continue with rheumatology Continue with methotrexate Assessment & Plan (10/03/2022 10:21 AM CLIENT MANAGER LARGE LAW): Stable Continue with rheumatology Continue with methotrexate Assessment & Plan (01/06/2020 5:42 AM CLIENT MANAGER LARGE LAW): Patient is on methotrexate which she takes on Sunday. Assessment & Plan (12/02/2019 7:16 PM CLIENT MANAGER LARGE LAW): Continue home methotrexate, administered weekly on Wednesdays. [...] (01/06/2020): Added automatically from request for surgery [id number] Bilateral pulmonary embolism ([facility]) 12/02/2019 07/02/2020 Assessment & Plan (12/02/2019 7:13 PM CLIENT MANAGER LARGE LAW): Cause shortness of breath cough, seen on chest CT today. Therapeutic Lovenox started in ED, switched to Eliquis for outpatient therapy. TTE ordered for AM to ensure no right heart strain. Cause unclear at this point, chest CT showed a nodular density in the left breast and recommended follow-up mammogram, however patient had a normal mammogram 3 weeks ago from her cma or lpn onc physician at [facility] (results in Care Everywhere). Encounter for screening colonoscopy 09/29/2019 07/02/2020 Overview (09/29/2019): Added automatically from request for surgery [id number] Malignant neoplasm of uterus ([facility]) 12/17/2018 07/02/2020 Assessment & Plan (12/02/2019 7:15 PM CLIENT MANAGER LARGE LAW): S/p hysterectomy. Viral URI with cough 10/30/2018 019 Assessment & Plan (10/30/2018 11:28 AM CLIENT MANAGER LARGE LAW): Likely viral based on symptoms. Flonase prescribed, conservative management advised including use of a nasal rinses, humidifier or paper eyes are along with indication to f/u in office with any worsening symptoms or persistent symptoms. Pre-diabetes 11/28/2017 11/30/2020 Benign hypertension 04/11/2014 12/17/19 19 Overview (03/01/2017): BENIGN HYPERTENSION
--- OUTSIDE RECORDS SUMMARY | 2024-11-16 15:30 | XMS_ITS | Encounter Summary ---
Author Organization [facility] Address [address] [place] [address] Care Team Providers Care Disposition Clerk Name Role Phone Francisco Long MD Primary Care Provider Unavailabl e Encounter Details Date Type Department Care Team (Latest Contact Info) Description 06/27/2018 10:55 AM CDT - 06/27/2018 11:59 PM CDT Hospital Encounter [facility] [address] [place] [address] Arron Cadena MD NO ADDRESS [...] Gordon Age: 72 y.o. Sex: female CSN: [id number] Procedure: HYSTERECTOMY TOTAL DAVINCI SI SALPINGO-OOPHORECTOMY DAVINCI [...] was obtained directly from the patient or manufacturers representative or caregiver or another available healthcare resource and updated in [facility] EMR. History Smoking Status ??? Never Smoker Smokeless Tobacco ??? Never Used Patient screened for tobacco use and identified as a Non-User of tobacco. REPORT AND NECESSARY FOLLOW-UP History and physical performed in [place]; tests (ECG, blood work) reviewed. Abnormal Results Found: no Further Testing or Evaluation Required: no Final [place] Center Review: May proceed with procedure/surgery: yes [...] from the original note were not included. [facility] Pre-Procedure Instructions [facility] Name: Jolene Gordon Age: 72 y.o. Please report to the: [x] Surgery Center [] [facility] (2nd Floor) [] Other: Date of Procedure: [...] surgery. ?? 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 DO NOT BRING [...] CDT Appointment [facility] [address] [place] [phone] Caron Mohan MD [address] [facility] [address] [place] [phone] 03/19/2025 11:30 AM CDT Office Visit [facility] Oncology and Hematology [address] [place] [address] Caron Mohan MD [address] [place] [phone] [place] [address] [facility] [address] [place] [address] Pending Results Name Type Priority [...] Stationary ECG Study ? [facility] ? Test Date: ?06/27/2018 11:52 AM Pat Name: ? JOLENE GORDON ? Department: ?? 46 ?Room: ? Gender: ? F ?College Associate: ?? cs : ?1945 ? Requested By: ARRON Luis Order Number: [id number] ?Reading : ?? Michele Saunders ? Measurements Intervals ?[place] ? Rate: ? 60 ? P: ?63 RI: ? 198 ?QRS: ?-13 QRSD: ? 102 ?T: ?76 QT: ? 431 ? QTc: ?431 ? Interpretive Statements ? Sinus rhythm Electronically Signed On 06-27-2018 12:25:21 CDT by Michele Saunders Procedure Note Michele Saunders MD - 02/01/2022 Stationary ECG Study [facility] Test Date: 06/27/2018 11:52 AM Pat Name: JOLENE GORDON Department: 46 Room: Gender: F College Associate: ana : 1945 Requested By: ARRON Luis Order Number: [id number] Aime MD: Michele Saunders Measurements Intervals [place] Rate: 60 P: 63 RI: 198 QRS: -13 QRSD: 102 T: 76 QT: 431 QTc: 431 Interpretive Statements Sinus rhythm Electronically Signed On 06-27-2018 12:25:21 CDT by Michele Saunders Arron Cadena MD ECG ORDERABLES Performing Organization Address City/[facility] Co de Phone Number INTERFACE SYSTEM Refer to clinic/hospital department * MANUAL DIFFERENTIAL (06/27/2018 11:51 AM CDT) PLATELET EST. Parameter N/A 06/27/20 18 2:22 PM CDT [facility] LABOR[facility]ORY SERVICES - . [facility] ANISOCYTOSIS 1+ /hpf 06/27/2018 2:22 PM CDT [facility] - [facility] POIKILOCYTES 1+ /hpf 06/27/2018 2:22 PM CDT [facility]ORATORY SERVICES - [facility] HYPOCHROMIA 1+ /hpf 06/27/2018 2:22 PM CDT [facility] - [facility] OVALOCYTES 1+ /hpf 06/27/2018 2:22 PM CDT [facility] - [facility] ELEANOR CELLS 1+ /hpf 06/27/2018 2:22 PM CDT [facility] LABORATORY SERVICES - . [facility] CLUMPED PLATELETS Present 06/27/2018 2:22 PM CDT [facility]ORY SERVICES - . [facility] Comment:Platelet clumps are present on smear review. Platelet count may be higher than indicated. Blood Venipuncture / Unknown 06/27/2018 11:51 AM CDT 06/27/2018 1:38 PM CDT Arron Cadena MD HEMATOLOGY ORDERABLE S COM Performing Organization Address [facility] Co de Phone Number [facility] LABORATORY SERVICES - [facility] CLIA# [id number] [address] [place] [address] * (ABNORMAL) CANCER ANTIGEN 125 (06/27/2018 11:51 AM CDT) CA 125 46.1(H) <35.0 U/mL 06/27/2018 2:52 PM CDT [facility] LABORATORY SERVICES [facility] Blood Venipuncture / Unknown 06/27/2018 11:51 AM CDT 06/27/2018 1:38 PM CDT [facility] LABORATORY [facility] - 06/27/2018 2:52 PM CDT The [...] Cadena MD CHEMISTRY ORDERABLES Performing Organization Address [facility]/ZIP Co de Phone Number [facility] [employer] [facility]# [id number] [address] [place] [address] * TYPE AND SCREEN (06/27/2018 11:51 AM CDT) ABO GROUP B 06/27/2018 3:02 PM CDT [facility] [employer] SERVICES -- [facility] RH (D) TYPE Positive 06/27/2018 3:02 PM CDT [facility] -- [facility] ANTIBODY SCREEN Negative 06/27/2018 3:02 PM T [facility] [employer] SERVICES -- [facility] Blood Venipuncture / Unknown 06/27/2018 11:51 AM CDT 06/27/2018 1:38 PM CDT Arron Cadena MD BLOOD BANK ORDERABLE S Performing Organization Address [facility]/ZIP Co de Phone Number [facility] [employer] [facility]# [id number] [address] [place] [address] * (ABNORMAL) URINALYSIS WITH REFLEX CULTURE (06/27/2018 11:51 AM CDT) COLOR UA Pale Yellow Pale to Dark Yellow 06/27/2018 2:06 PM CDT [facility] LABORATORY SERVICES [facility] CLARITY UA Clear Clear 06/27/2018 2:06 PM CDT [facility] LABORATORY SERVICES [facility] SPECIFIC GRAVITY UA 1.015 1.003 - 1.035 06/27/2018 2:06 PM T [employer] LABORATORY SERVICES - [facility] PH UA 6.0 5.0 - 8.0 06/27/2018 2:06 PM T [employer] LABORATORY SERVICES - [facility] LEUKOCYTE ESTERASE UA Trace(A) Negative 06/27/2018 2:06 PM [facility] [employer] LABORATORY SERVICES - [facility] Comment: For patients with 'trace' results, consider ordering a culture and sensitivity if clinically indicated. NITRITE UA Negative Negative 06/27/2018 2:06 PM T [employer] LABORATORY SERVICES - [facility] PROTEIN UA Negative Negative 06/27/2018 2:06 PM T [employer] LABORATORY SERVICES - [facility] GLUCOSE UA Negative Negative 06/27/2018 2:06 PM T [employer] LABORATORY SERVICES - [facility] KETONES UA Negative Negative 06/27/2018 2:06 PM [facility] [employer] LABORATORY SERVICES - [facility] UROBILINOGEN UA Normal <2.0 mg/dL 8 2:06 PM T [employer] LABORATORY SERVICES - [facility] BILIRUBIN UA Negative Negative 06/27/2018 2:06 PM T [employer] LABORATORY SERVICES - [facility] BLOOD UA Negative Negative 06/27/2018 2:06 PM T [employer] LABORATORY SERVICES - [facility] WBC UA 3-5(A) 0 - 2 /hpf 06/27/2018 2:06 PM CDT [employer] LABORATORY SERVICES - [facility] RBC UA 0-2 0 - 2 /hpf 06/27/2018 2:06 PM [facility] [employer] LABORATORY SERVICES - [facility] BACTERIA UA 1+(A) Negative /hpf 06/27/2018 2:06 PM [facility] [employer] LABORATORY SERVICES - [facility] EPITHELIAL CELLS, URINE 0-5 0 - 5 /hpf 06/27/2018 2:06 PM T [employer] LABORATORY SERVICES - [facility] Urine URINE SPECIMEN OBTAINED BY CLEAN CATCH PROCEDURE / Unknown Collection / Unknown 06/27/2018 11:51 AM CDT 06/27/2018 1:57 PM CDT Arron Cadena MD URINE ORDERABLES [facility] LABORATORY SERVICES - [facility] CLIA# [id number] [address] [place] [address] * MAGNESIUM LEVEL (06/27/2018 11:51 AM CDT) MAGNESIUM 2.2 1.6 - 2.4 mg/dL 06/27/2018 2:52 PM CDT [employer] LABORATORY SERVICES [facility] Blood Venipuncture / Unknown 06/27/2018 11:51 AM CDT 06/27/2018 1:38 PM CDT Arron Cadena MD CHEMISTRY ORDERABLES [facility] [employer] SERVICES [facility] CLIA# [id number] [address] [facility] [address] [place] [address] * (ABNORMAL) COMPREHENSIVE METABOLIC PANEL (06/27/2018 11:51 AM CDT) Pathologist [facility] SODIUM 142 136 - 145 mmol/L 06/27/2018 2:52 PM CDT [employer] LABORATORY SERVICES [facility] POTASSIUM 4.5 3.5 - 5.0 mmol/L 06/27/2018 2:52 PM CDT [employer] SERVICES - . [facility] CHLORIDE 101 98 - 107 mmol/L 06/27/2018 2:52 PM CDT [employer] LABORATORY SERVICES - . [facility] CO2 24 22 - 29 mmol/L 06/27/2018 2:52 PM T [employer] LABORATORY SERVICES - . [facility] CALCIUM 9.7 8.6 - 10.2 mg/dL 06/27/2018 2:52 PM CDT [employer] LABORATORY SERVICES - . [place] BUN 19 8 - 23 mg/dL 06/27/2018 2:52 PM T [employer] LABORATORY SERVICES - . [facility] CREATININE 0.98(H) 0.51 - 0.95 mg/dL 06/27/2018 2:52 PM CDT [employer] [facility]ATORY SERVICES - [facility] Comment: The GFR result is not clinically significant on patients <18 or >70 years of age. GLUCOSE 103(H) 74 - 99 mg/dL 06/27/2018 2:52 PM CDT [employer] LABORATORY SERVICES - . [facility] TOTAL PROTEIN 7.1 6.7 - 8.6 g/dL 06/27/2018 2:52 PM CDT [employer] LABORATORY SERVICES - [facility] ALBUMIN 4.3 3.5 - 5.2 g/dL 06/27/2018 2:52 PM [facility] LABORATORY SERVICES - [facility] BILIRUBIN TOTAL 0.4 0.2 - 1.1 mg/dL 06/27/2018 2:52 PM [facility] LABORATORY [facility] - [facility] ALKALINE PHOSPHATASE 71 35 - 104 U/L 06/27/2018 2:52 PM [facility] LABORATORY SERVICES - [facility] AST 23 <33 U/L 06/27/2018 2:52 PM [facility] LABORATORY [facility] - [facility] ALT 21 <34 U/L 06/27/2018 2:52 PM [facility] LABORATORY SERVICES - [facility] GFR 56 mL/min/1.7 3 sq meter 06/27/2018 2:52 PM [facility] LABORATORY SERVICES - [facility] Comment: eGFR has [...] mL/min/1.7 3 sq meter 06/27/2018 2:52 PM [facility] LABORATORY [facility] ANION GAP 17(H) 8 - 16 mmol/L 06/27/2018 2:52 PM [facility] LABORATORY [facility] Blood Venipuncture / Unknown 06/27/2018 11:51 AM CDT 06/27/2018 1:38 PM CDT Narrative [facility] LABORATORY SERVICES - [facility] - 06/27/2018 2:52 PM CDT Samples containing indocyanine green cause interferences on Total and/or Direct Bilirubin and must not be measured. Arron Cadena MD CHEMISTRY ORDERABLES [facility] CLIA# [id number] 5 [facility] [address] [address] * (ABNORMAL) CBC WITH DIFFERENTIAL (06/27/2018 11:51 AM CDT) [facility] WBC 7.4 4.0 - 9.8 K/uL 06/27/2018 1:54 PM CDT [employer] LABORATORY SERVICES - [facility] RBC 4.96(H) 3.90 - 4.90 M/uL 06/27/2018 1:54 PM CDT [employer] LABORATORY SERVICES - [facility] HEMOGLOBIN 12.7 11.8 - 14.8 g/dL 06/27/2018 1:54 PM CDT [employer] LABORATORY SERVICES - [facility] HEMATOCRIT 41.3 35.5 - 44.0 % 06/27/2018 1:54 PM CDT [employer] LABORATORY SERVICES - [facility] MCV 83.3 82.0 - 99.0 fL 06/27/2018 1:54 PM CDT [employer] LABORATORY SERVICES - [facility] MCH 25.6(L) 27.2 - 32.6 pg 06/27/2018 1:54 PM CDT [employer] LABORATORY SERVICES - [facility] MCHC 30.8(L) 31.5 - 35.5 g/dL 06/27/2018 1:54 PM CDT [employer] LABORATORY SERVICES - [facility] RDW 20.7(H) 11.5 - 14.5 % 06/27/2018 1:54 PM CDT [employer] LABORATORY SERVICES - [facility] RDW-STDEV 61.0(H) 37.1 - 48.7 fL 06/27/2018 1:54 PM CDT [employer] LABORATORY SERVICES - [facility] PLATELETS 223 140 - 350 K/uL 06/27/2018 1:54 PM CDT [employer] LABORATORY SERVICES - [facility] MPV 9.8 9.3 - 12.4 fL 06/27/2018 1:54 PM CDT [employer] LABORATORY SERVICES - . [facility] NEUTROPHILS 82 % 06/27/2018 1:54 PM CDT [employer] LABORATORY SERVICES - . [facility] LYMPHOCYTES 8 % 06/27/2018 1:54 PM CDT [employer] LAB[facility]ATORY SERVICES - . [place] MONOCYTES 7 % 06/27/2018 1:54 PM CDT [employer] LAB[facility]ATORY SERVICES - . [place] EOSINOPHILS 2 % 06/27/2018 1:54 PM CDT [employer] LABORATORY SERVICES - . [place] BASOPHILS 0 % 06/27/2018 1:54 PM CDT [facility] - [facility] IMMATURE GRANULOCYTES 1 % 06/27/2018 1:54 PM CDT [facility] LABORATORY SERVICES - [facility] Comment:IG (Immature Granulo cyte) count includes Metamyelocytes, Myelocytes, and Promyelocytes NEUTROPHIL ABSOLUTE 6.06 1.90 - 7.00 K/uL 06/27/2018 1:54 PM CDT [facility] LABORATORY SERVICES - . [facility] LYMPHOCYTE ABSOLUTE 0.60(L) 0.70 - 4.50 K/uL 06/27/2018 1:54 PM CDT [facility] LABORATORY SERVICES - . [facility] MONOCYTE ABSOLUTE 0.53 0.10 - 1.30 K/uL 06/27/2018 1:54 PM CDT [facility] LABORATORY SERVICES - . [facility] EOSINOPHIL ABSOLUTE 0.13 0.00 - 0.70 K/uL 06/27/2018 1:54 PM CDT [facility] LABORATORY SERVICES - . [facility] BASOPHILS ABSOLUTE 0.03 0.00 - 0.20 K/uL 06/27/2018 1:54 PM CDT [facility] LABORATORY [facility] IMMATURE GRANULOCYTES ABSOLUTE 0.04(H) 0.00 - 0.03 K/uL 06/27/2018 1:54 PM CDT [facility] LABORATORY [facility] - [facility] Blood Venipuncture / Unknown 06/27/2018 11:51 AM CDT 06/27/2018 1:38 PM CDT Arron Cadena MD HEMATOLOGY ORDERABLE [facility]# [id number] [address] [place] [address] documented in this encounter Visit Diagnoses Not on filedocumented in this encounter Care Teams Disposition Clerk Relationship Specialty Start Date End Date Francisco Long MD PCP - General Internal Medicine 06/27/18 documented as of this encounter
--- OUTSIDE RECORDS SUMMARY | 2024-11-16 15:31 | XMS_ITS | Encounter Summary ---
Author Organization [facility] Address [address] [facility] [address] [place] [address] Care Team Providers Care Lithographic Plate Maker Name Role Phone Neil Ag MD PhD Unavailable Ita Vazquez MD Unavailable aCron Mohan MD Unavailable Pebbles Felton MD Unavailable [phone] Mariangel Quiñonez MD Primary Care Provide r Encounter Details Date Type Department Care Team (Late st Contact Info) Description 10/16/2022 Telephone [facility] Primary Care at [address] [place] [address] Mariangel Quiñonez MD [address] [place] [address] [address] [place] [address] Social History Tobacco Use Types [...] on file 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 ordered FOOD SHREDDER OPERATOR * Telephone Encounter - Lorene Lorenzo MA - 10/16/2022 1:41 PM CST ----- Message from Mariangel Quiñonez MD sent at 10/15/2022 8:48 PM DOG FOOD SHREDDER OPERATOR ----- Let patient know her cholesterol is up. She really needs to work on diet and exercise. Everything else is stable. A1c is 6.5. 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) Mixed hyperlipidemia documented in this encounter Care Teams Lithographic Plate Maker Relationship Specialty Start Date End Date Mariangel Quiñonez MD 2 [facility] [address] [address] PCP - General Family Medicine 05/16/22 Neil Ag MD PhD [address] [facility] [place] [address] Radiation Oncologist Radiation Oncology 12/17/18 [place] [address] [facility] [facility] [address] [place], [place] [address] Referring Physician General Surgery 12/17/18 [place] [address] [address] [facility] [address] [place], [place] [id number] Medical Oncologist/Home Theatre Technician Medical Oncology 12/17/18 [place] [address] [facility] [facility] [address] [place], [place] [address] Consulting Physician Gastroenterology 01/07/20 documented as of this encounter
--- OUTSIDE RECORDS SUMMARY | 2024-11-16 15:31 | XMS_ITS | Encounter Summary ---
Author Organization [facility] Address [address] [facility] [address] [place] [address] Care Team Providers Care Buyer Name Role Phone Neil Ag MD PhD Unavailable Ita Vazquez MD Unavailable Caron Mohan MD Unavailable Pebbles Felton MD Unavailable [phone] Mariangel Quiñonez MD Primary Care Provide r Reason for Visit * Reason Comments Cough Pt is fatigued, rece ntly seen at [place] and given steroid and albuterol inhaler for her Sx. Cough and fatigue are her current symptoms.Hx of Covid in November. Encounter Details Date Type Department Care Team (Late st Contact Info) Description 02/11/2023 11:45 AM CDT Office Visit [facility] [address] [place] [id number] Alana Dewey, HOME ECONOMIST [address] [place] [address] Bronchitis (Primary Dx) Social History Tobacco Use Types Packs/Day Years Used Date Smoking Tobacco: Never Smokeless Tobacco: Never Alcohol Use Standard Drinks/Week Comments No 0 (1 standard drink = 0.6 oz pur e alcohol) Overall [facility] Resource Strain [facility] Answe r Date Recorded Difficulty of [...] on file 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 * Acute Bronchitis (General Information) (Croatian) documented in this encounter Progress Notes * Alana Dewey NP - 02/11/2023 11:45 AM CDT Images from the original note were not included. Patient ID: Jolene Cedillo is a 77 y.o. female followed by Mariangel Quiñonez MD Chief Complaint Patient presents with Cough Pt is fatigued, recently seen at [place] and given steroid and albuterol inhaler for her Sx. Hx of Covid in November. Presents to [facility] care with complaint of fatigue, nasal congestion, and postnasal drainage, onset 02/07/2023. She was seen at [facility] urgent care on 02/08/2023, prescribed steroid and [...] tenderness or frontal sinus tenderness. Mouth/Throat: Lips: Emmet. Mouth: Mucous membranes are moist. Pharynx: No [...] refuse treatment. The above information is an behavioral health aide only. It is not intended as medical advice for individual conditions or treatments. Talk to your doctor, nurse or pharmacist before following any medical regimen to see if it is safe and effective for you. ?? 2017 [employer] Information is for End User's use only and may not be sold, redistributed or otherwise used for commercial purposes. All illustrations and images included in CareNotes?? are the copyrighted property of A.D.A.M., Inc. or [employer]. documented in this encounter Plan of Treatment [...] documented as of this encounter Care Teams Buyer Relationship Specialty Start Date End Date Mariangel Quiñonez MD [address] [address] PCP - General Family Medicine 05/16/22 Neil Ag MD PhD 6 [place] [address] Radiation Oncologist Radiation Oncology 12/17/18 [place] [address] [facility] 120 [place], [place] [address] Referring Physician General Surgery 12/17/18 [place] [address] [facility] 120 [place], [place] [address] Medical Oncologist/Rubber Stamp Die Inspector Medical Oncology 12/17/18 [place] [address] [facility] 120 [place] [address] Consulting Physician Gastroenterology 01/07/20 documented as of this encounter
--- OUTSIDE RECORDS SUMMARY | 2024-11-16 15:31 | XMS_ITS | Encounter Summary ---
Author Organization [facility] Medical Group Address [address] [facility] [address] [place] [address] Care Team Providers Care Freight Breaker Name Role Phone Francisco Long MD Primary Care Provider [phone] Neil Ag MD PhD Unavailable [phone] Ita estrada MD Unavailable Caron Mohan MD Unavailable Pebbles Felton MD Unavailable [phone] Reason for Visit * Reason Onset Date Comments Covid-19 Home Monitoring 12/09/2021 daily c alls Encounter Details Date Type Department Care Team (Late st Contact Info) Description 12/09/2021 Telephone [facility] Accountable Care Organization [address] [place] [address] Natividad Marin MA [address] [place] [address] [facility] [address] [place] [address] Covid-19 Home Monitoring (daily calls ) Social [...] on file 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 : No R AND COUCH MAKER documented in this encounter Plan of Treatment Not on file documented as of this encounter Visit Diagnoses Not on filedocumented in this encounter Additional Health Concerns Infection Onset Date Last Indicated Resolved Time COVID19 12/07/2021 12/07/2021 12/17/2021 3:05 AM CHAIR AND COUCH MAKER documented as of this encounter Care Teams Freight Breaker Relationship Specialty Start Date End Date Francisco Long MD PCP - General 02/23/17 05/15/22 Neil Ag MD PhD [address] [place] [address] Radiation Oncologist Radiation Oncology 12/17/18 [place] [address] [facility] [address] [place], [place] [address] Referring Physician General Surgery 12/17/18 [place] [address] [id number] Medical Oncologist/Folder Stitcher Operator Medical Oncology 12/17/18 [place] [address] [facility] [address] [place], [place] [address] Consulting Physician Gastroenterology 01/07/20 documented as of this encounter
--- OUTSIDE RECORDS SUMMARY | 2024-11-16 15:31 | XMS_ITS | Encounter Summary ---
Author Organization [facility] Medical Group Address [address] [facility] [address] [place] [address] Care Team Providers Care Soap Boiler Name Role Phone Francisco Long MD Primary Care Provider [phone] Neil Ag MD PhD Unavailable [phone] Ita estrada MD Unavailable Caron Mohan MD Unavailable [phone] Pebbles Felton MD Unavailable [phone] Reason for Visit * Reason Onset Date Comments Covid-19 Home Monitoring 12/11/2021 Daily C all Encounter Details Date Type Department Care Team (Late st Contact Info) Description 12/11/2021 Telephone [facility] Accountable Care Organization [address] [place] [address] Zulema Alvarado Covid-19 Home Monitoring (Daily Call) [...] on file 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 Next Program Call Due: 12/12/21 SPRAYER documented in this encounter Plan of Treatment Not on file documented as of this encounter Visit Diagnoses Not on filedocumented in this encounter Additional Health Concerns Infection Onset Date Last Indicated Resolved Time COVID19 12/07/2021 12/07/2021 12/17/2021 3:05 AM SHOE SPRAYER documented as of this encounter Care Teams Soap Boiler Relationship Specialty Start Date End Date Francisco Long MD PCP - General 02/23/17 05/15/22 Neil Ag MD PhD 6 [place] [address] Radiation Oncologist Radiation Oncology 12/17/18 [place] [address] [facility] 120 [place] [address] Referring Physician General Surgery 12/17/18 [place] [address] [address] Medical Oncologist/Field Reporter Medical Oncology 12/17/18 [place] [address] [address] Consulting Physician Gastroenterology 01/07/20 documented as of this encounter
--- OUTSIDE RECORDS SUMMARY | 2024-11-16 15:31 | XMS_ITS | Encounter Summary ---
Author Organization [facility] Address [address] [facility] [address] [place] [address] Care Team Providers Care Chief Crna Name Role Phone Neil Ag MD PhD Unavailable Ita Vazquez MD Unavailable Caron Mohan MD Unavailable Pebbles Felton MD Unavailable [phone] Mariangel Quiñonez MD Primary Care Provide r Encounter Details Date Type Department Care Team (Late st Contact Info) Description 05/25/2022 Telephone [facility] [address] [facility] [address] [place] [address] Mariangel Quiñonez MD [address] [place] [address] [address] [place] [address] Social History Tobacco Use Types [...] file 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 * Telephone Encounter - Betty Palmer MA - 05/25/2022 11:21 AM CDT Spoke with [facility] and they are faxing exam over * Telephone Encounter - Betty Palmer MA - 05/25/2022 10:10 AM CDT Tried to call [facility] at [phone] and line was busy Will try again later to have report faxed to us * Telephone Encounter - Katie Apple - 05/25/2022 9:55 AM CDT Pt received a letter from our office about needing a diabetic eye exam. She had one done on 03/08/22 at [facility] in [place]. documented in this encounter Plan of Treatment Not on file documented as of this encounter Visit Diagnoses Not on filedocumented in this encounter Care Teams Chief Crna Relationship Specialty Start Date End Date Mariangel Quiñonez MD [address] [address] PCP - General Family Medicine 05/16/22 Neil Ag MD PhD 6 [place] [address] Radiation Oncologist Radiation Oncology 12/17/18 [place] [address] [facility] 120 [place] [id number] Referring Physician General Surgery 12/17/18 [place] [address] [facility] 120 [place] [id number] Medical Oncologist/Privacy Officer Medical Oncology 12/17/18 [place] [address] [facility] [address] [place] [id number] Consulting Physician Gastroenterology 01/07/20 documented as of this encounter
--- OUTSIDE RECORDS SUMMARY | 2024-11-16 15:31 | XMS_ITS | Encounter Summary ---
Author Organization [facility] Medical [facility] Address [address] [facility] [address] [place] [address] Care Team Providers Care Water Tender Name Role Phone Neil Ag MD PhD Unavailable Ita Vazquez MD Unavailable Caron Mohan MD Unavailable [phone] Pebbles Felton MD Unavailable [phone] Mariangel Quiñonez MD Primary Care Provide r Encounter Details Date Type Department Care Team (Late st Contact Info) Description 10/03/2022 Orders Only [facility] Primary Care at [address] [place] [address] Mariangel Quiñonez MD [address] [place] [address] [address] [place] [address] Essential hypertension (Primary Dx); Mixed [...] file Legal Sex Female 12:21 PM DIRECTOR DATA ARCHITECTURE Gender Identity Not on file Sexual Orientation Not on file documented as of this encounter Plan of Treatment Not on file documented as of this encounter Procedures Procedure Name Priority Date/Time Associated Diagnosis Comments LIPID PANEL WITH REFLEX TO DIRECT LDL Routine 10/12/2022 8:36 AM DIRECTOR DATA ARCHITECTURE Essential hypertension Mixed hyperlipidemia 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) CBC WITH AUTO DIFFERENTIAL Routine 10/12/2022 8:36 AM DIRECTOR DATA ARCHITECTURE Essential hypertension Mixed hyperlipidemia 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) ALBUMIN CREATININE RATIO, URINE Routine 10/12/2022 8:36 AM DIRECTOR DATA ARCHITECTURE Essential hypertension Mixed hyperlipidemia 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) TSH Routine 10/12/2022 8:36 AM DIRECTOR DATA ARCHITECTURE Essential hypertension Mixed hyperlipidemia 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) HEMOGLOBIN A1C Routine 10/12/2022 8:36 AM DIRECTOR DATA ARCHITECTURE Essential hypertension Mixed hyperlipidemia 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) COMPREHENSIVE METABOLIC PANEL Routine 10/12/2022 8:36 AM DIRECTOR DATA ARCHITECTURE Essential hypertension Mixed hyperlipidemia 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) documented in this encounter Results * (ABNORMAL) Hemoglobin A1c (10/12/2022 8:36 AM DIRECTOR DATA ARCHITECTURE) Hgb A1C 6.5(H) <5.7 % of total [...] for children. ?? Blood 10/12/2022 8:36 AM DIRECTOR DATA ARCHITECTURE 10/12/2022 8:38 AM DIRECTOR DATA ARCHITECTURE Narrative [facility] - 10/13/2022 12:30 PM DIRECTOR DATA ARCHITECTURE FASTING:YES FASTING: YES Mariangel Quiñonez MD LAB BLOOD ORDERABLES Final Result Performing Organization Address City/[facility]/ZIP Co de Phone Number [facility] [address] [place] [address] * Albumin Creatinine Ratio, Urine (10/12/2022 8:36 AM DIRECTOR DATA ARCHITECTURE) Creatinine, ur 149 20 - 275 mg/dL [...] a diagnostic category. Urine 10/12/2022 8:36 AM DIRECTOR DATA ARCHITECTURE 10/12/2022 8:38 AM DIRECTOR DATA ARCHITECTURE Narrative [facility] - 10/13/2022 12:30 PM DIRECTOR DATA ARCHITECTURE FASTING:YES FASTING: YES us Mariangel Quiñonez MD LAB URINE ORDERABLES Final Result [facility] [id number] [id number] * TSH (10/12/2022 8:36 AM DIRECTOR DATA ARCHITECTURE) Pathologist [facility] TSH 2.75 0.40 - 4.50 mIU/L [facility] Blood 10/12/2022 8:36 AM DIRECTOR DATA ARCHITECTURE 10/12/2022 8:38 AM DIRECTOR DATA ARCHITECTURE Narrative [facility] - 10/13/2022 12:30 PM DIRECTOR DATA ARCHITECTURE FASTING:YES FASTING: YES Mariangel Quiñonez MD LAB BLOOD ORDERABLES Final Result [facility] [address] [place] [address] * (ABNORMAL) CBC with auto differential (10/12/2022 8:36 AM DIRECTOR DATA ARCHITECTURE) Pathologist [facility] WBC 6.2 3.8 - 10.8 Thousand/u L [...] [facility] Blood 10/12/2022 8:36 AM DIRECTOR DATA ARCHITECTURE 10/12/2022 8:38 AM DIRECTOR DATA ARCHITECTURE Narrative [facility] - 10/13/2022 12:30 PM DIRECTOR DATA ARCHITECTURE FASTING:YES FASTING: YES Mariangel Quiñonez MD LAB BLOOD ORDERABLES Final Result [facility] [address] [place] [address] * (ABNORMAL) Comprehensive metabolic panel (10/12/2022 8:36 AM DIRECTOR DATA ARCHITECTURE) Pathologist [facility] Glucose 138(H) 65 - 99 mg/dL [facility] Comment: ? Fasting reference interval For someone without known diabetes, a glucose value >125 mg/dL indicates that they may have diabetes and this should be confirmed with a follow-up test. BUN 16 7 - 25 mg/dL [facility] Creatinine 0.89 0.60 - 1.00 mg/dL [facility] eGFR 68 > OR = 60 mL/min/1. 73m2 [facility] Comment: The eGFR is based on the CKD-EPI 2020 equation. To calculate the new eGFR from a previous Creatinine or Cystatin C result, go to https://www.kidney.org/professionals/ kdoqi/gfr%5Fcalculator BUN/creat ratio NOT APPLICABLE 6 - 22 (calc) [facility] Sodium 140 135 - 146 mmol/L [facility] Potassium, pl 4.3 3.5 - 5.3 mmol/L [facility] Chloride 103 98 - 110 mmol/L [facility] CO2 31 20 - 32 mmol/L [facility] Calcium 8.9 8.6 - 10.4 mg/dL [facility] Protein, sr 6.3 6.1 - 8.1 g/dL [facility] Albumin 4.0 3.6 - 5.1 g/dL [facility] GLOBULIN 2.3 1.9 - 3.7 g/dL (calc) [facility] Alb/glob ratio 1.7 1.0 - 2.5 (calc) [facility] Bilirubin, total 0.5 0.2 - 1.2 mg/dL [facility] Alk phos 72 37 - 153 U/L [facility] AST 17 10 - 35 U/L [facility] ALT (SGPT) 12 6 - 29 U/L [facility] Blood 10/12/2022 8:36 AM DIRECTOR DATA ARCHITECTURE 10/12/2022 8:38 AM DIRECTOR DATA ARCHITECTURE Narrative [facility] - 10/13/2022 12:30 PM DIRECTOR DATA ARCHITECTURE FASTING:YES FASTING: YES Mariangel Quiñonez MD LAB BLOOD ORDERABLES Final Result [facility] [address] [place] [address] * (ABNORMAL) Lipid panel with reflex to direct LDL (10/12/2022 8:36 AM DIRECTOR DATA ARCHITECTURE) Cholesterol 239(H) <200 mg/dL [facility] [...] LDL-C. Harry YUAN et al. RANDALL. 2013;310(19): 9185-7537 (http://education.Consumer Physics.[employer]/faq/JZI545) Chol/HDL ratio 4.1 <5.0 (calc) [facility] Non-HDL, (LDL+VLDL) 180(H) <130 mg/dL (calc) [facility] Comment: For patients with diabetes plus 1 major ASCVD risk factor, treating to a non-HDL-C goal of <100 mg/dL (LDL-C of <70 mg/dL) is considered a therapeutic option. Blood 10/12/2022 8:36 AM DIRECTOR DATA ARCHITECTURE 10/12/2022 8:38 AM DIRECTOR DATA ARCHITECTURE Narrative [facility] - 10/13/2022 12:30 PM DIRECTOR DATA ARCHITECTURE FASTING:YES FASTING: YES Mariangel Quiñonez MD LAB BLOOD ORDERABLES Final Result [facility] [address] [place] [address] documented in this encounter Visit Diagnoses Diagnosis Essential hypertension- Primary Unspecified essential hypertension Mixed hyperlipidemia 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) documented in this encounter Care Teams Water Tender Relationship Specialty Start Date End Date Mariangel Quiñonez MD [address] [address] PCP - General Family Medicine 05/16/22 Neil Ag MD PhD 6 [place] [address] Radiation Oncologist Radiation Oncology 12/17/18 [place] [address] [address] [place] [address] Referring Physician General Surgery 12/17/18 [place] [address] [address] [place] [address] Medical Oncologist/Customer Support Agent Medical Oncology 12/17/18 [place] [address] [facility] [address] [place] [address] Consulting Physician Gastroenterology 01/07/20 documented as of this encounter
--- OUTSIDE RECORDS SUMMARY | 2024-11-16 15:31 | XMS_ITS | Encounter Summary ---
Author Organization [facility] Medical Group Address [address] [facility] [address] [place] [address] Care Team Providers Care Brilliandeer Lopper Name Role Phone Francisco Long MD Primary Care Provider [phone] Neil Ag MD PhD Unavailable [phone] Ita estrada MD Unavailable Caron Mohan MD Unavailable Pebbles Felton MD Unavailable [phone] Reason for Visit * Reason Onset Date Comments Covid-19 Home Monitoring 12/12/2021 daily c all Encounter Details Date Type Department Care Team (Late st Contact Info) Description 12/12/2021 Telephone [facility] Accountable Care Organization [address] [place] [address] Yamileth Meade MA [address] [place] [address] [facility] [address] [place] [address] Covid-19 Home Monitoring (daily call ) Social [...] on file Legal Sex Female 12:21 PM SOLICITING FREIGHT AGENT Gender Identity Not on file Sexual Orientation [...] well and would like to complete program. CITING FREIGHT AGENT documented in this encounter Plan of Treatment Not on file documented as of this encounter Visit Diagnoses Not on filedocumented in this encounter Additional Health Concerns Infection Onset Date Last Indicated Resolved Time COVID19 12/07/2021 12/07/2021 12/17/2021 3:05 AM SOLICITING FREIGHT AGENT documented as of this encounter Care Teams Brilliandeer Lopper Relationship Specialty Start Date End Date Francisco Long MD PCP - General 02/23/17 05/15/22 Neil Ag MD PhD 6 [place] [address] Radiation Oncologist Radiation Oncology 12/17/18 [place] [address] [address] [facility] 120 [place] [id number] Referring Physician General Surgery 12/17/18 [place] [address] [address] [facility] [address] [place] [id number] Medical Oncologist/Deportation Officer Medical Oncology 12/17/18 [place] [address] [facility] [address] [place] [address] Consulting Physician Gastroenterology 01/07/20 documented as of this encounter
--- OUTSIDE RECORDS SUMMARY | 2024-11-16 15:31 | XMS_ITS | Encounter Summary ---
Author Organization [facility] Address [address] [facility] [address] [place] [address] Care Team Providers Care Photo Studio Assistant Name Role Phone Neil Ag MD PhD Unavailable Ita Vazquez MD Unavailable Caron Mohan MD Unavailable Pebbles Felton MD Unavailable [phone] Mariangel Quiñonez MD Primary Care Provide r Encounter Details Date Type Department Care Team (Late st Contact Info) Description 03/28/2023 Telephone [facility] Medical [facility] Primary Care at [address] [place] [address] Mariangel Quiñonez MD [address] [place] [address] [address] [place] [address] Social History Tobacco Use Types [...] file Legal Sex Female 12:21 PM ENGINEERING LEADER Gender Identity Not on file Sexual [...] on filedocumented in this encounter Care Teams Photo Studio Assistant Relationship Specialty Start Date End Date Mariangel Quiñonez MD [address] [address] PCP - General Family Medicine 05/16/22 Neil Ag MD PhD 6 [place] [address] Radiation Oncologist Radiation Oncology 12/17/18 [place] [address] [place] [address] Referring Physician General Surgery 12/17/18 [place] [address] [address] Medical Oncologist/Entry Level Manufacturing Engineer Medical Oncology 12/17/18 [place] [address] [address] Consulting Physician Gastroenterology 01/07/20 documented as of this encounter
--- OUTSIDE RECORDS SUMMARY | 2024-11-16 15:31 | XMS_ITS | Encounter Summary ---
Author Organization [facility] Address [address] [place] [address] Care Team Providers Care Retail Warehouse Supervisor Name Role Phone Neil Ag MD PhD Unavailable Ita Vazquez MD Unavailable Caron Mohan MD Unavailable Pebbles Felton MD Unavailable [phone] Mariangel Quiñonez MD Primary Care Provide r Reason for Visit * Reason Onset Date Comments Medical Question/Miscellaneous 03/27/2023 Encounter Details Date Type Department Care Team (Late st Contact Info) Description 03/27/2023 Telephone [facility] Primary Care at [address] [place] [address] Mariangel Quiñonez MD [address] [place] [address] [address] [place] [address] Medical Question/Miscellaneous Social History Tobacco Use Types [...] on file Legal Sex Female 12:21 PM 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 She wanted to make sure office was faxing it to fax [phone]. Called backline and verified that was the one it was faxed to. Office did fax it to the correct number and are refaxing it. Caller???s Call back #: [phone] Does message need to be routed? No * Telephone Encounter - Yosef Kaur - 03/27/2023 8:39 AM CDT Medical Question/Miscellaneous Caller???s Concern: Patient called from [facility] in [place]. She requested her lab ordersbe sent there but were sent to [facility] in error. Called back line and per back line orders faxed to [facility] Advised patient Caller???s Call back #: [phone] Does message need to be routed? Yes-FYI Only documented in this encounter Plan of Treatment Not on file documented as of this encounter Visit Diagnoses Not on filedocumented in this encounter Care Teams Retail Warehouse Supervisor Relationship Specialty Start Date End Date Mariangel Quiñonez MD [address] [address] PCP - General Family Medicine 05/16/22 Neil Ag MD PhD 6 [place] [address] Radiation Oncologist Radiation Oncology 12/17/18 [place] [address] [address] [facility] [address] [place] [address] Referring Physician General Surgery 12/17/18 [place] [address] [facility] [address] [place], [place] [id number] Medical Oncologist/Bumboater Medical Oncology 12/17/18 [place] [address] [facility] [address] [place] [address] Consulting Physician Gastroenterology 01/07/20 documented as of this encounter
--- OUTSIDE RECORDS SUMMARY | 2024-11-16 15:31 | XMS_ITS | Encounter Summary ---
Author Organization [facility] Address [address] [place] [address] Care Team Providers Care Community Relations Representative Name Role Phone Neil Ag MD PhD Unavailable Ita Vazquez MD Unavailable Caron Mohan MD Unavailable Pebbles Felton MD Unavailable [phone] Mariangel Quiñonez MD Primary Care Provide r Reason for Visit * Reason Comments Medicare Wellness Encounter Details Date Type Department Care Team (Late st Contact Info) Description 10/03/2022 10:00 AM WELLNESS MANAGER Office Visit [facility] Medical [facility] Primary Care at [address] [place] [address] Mariangel Quiñonez MD [address] [place] [phone] Medicare annual wellness visit, subsequent (Primary Dx); [...] on file Legal Sex Female 12:21 PM WELLNESS MANAGER Gender Identity Not on file Sexual Orientation Not on file documented as of this encounter Last Filed Vital Signs Vital Sign Reading Time Taken Comments Blood Pressure 136/78 10/03/2022 9:58 AM WELLNESS MANAGER Pulse 75 10/03/2022 9:58 AM WELLNESS MANAGER Temperature - - Respiratory Rate 20 10/03/2022 9:58 AM WELLNESS MANAGER Oxygen Saturation 96% 10/03/2022 9:58 AM WELLNESS MANAGER Inhaled Oxygen Concentration - - Weight 85.3 kg (188 lb) 10/03/2022 9:58 AM WELLNESS MANAGER Height 170.2 cm (5' 7 ) 10/03/2022 9:58 AM WELLNESS MANAGER Body Mass Index 29.44 10/03/2022 9:58 AM WELLNESS MANAGER documented in this encounter Progress Notes * Mariangel Quiñonez MD - 10/03/2022 10:00 AM CST MEDICARE SUBSEQUENT ANNUAL WELLNESS VISIT Jolene Cedillo Medicare Health Risk Assessment Basic Information In general, would you say your health is: Good Do you have an advance directive, such as a living will or durable power of workers compensation defense attorney?: Yes Do you have to strain or [...] MD as PCP - General (Family Medicine) [facility] as Radiation Oncologist (Radiation Oncology) Ita Vazquez MD as Referring Physician (General Surgery) Caron Mohan MD as Medical Oncologist/Gastroenterology Nurse (Medical Oncology) Pebbles Felton MD as Consulting Physician (Gastroenterology) Primary Pharmacy/DME suppliers: [id number] - [place] - [address] [facility] [address] [place] [address] Detection of Cognitive Impairment: The patient does [...] Improve Diet Advanced Directive Durable Power of Photographic Machine Operator: Yes Living Will: Yes Assessment and Plan: [...] to monitor. Continue statin Recurrent pulmonary emboli (CMS/[facility]) ([facility]) Assessment & Plan: eliquis was stopped because of hx of GI bleeding Type 2 diabetes mellitus with hyperlipidemia ([facility]) Assessment & Plan: The patient was [...] rheumatoid factor ([facility]) ([facility]) Assessment & Plan: Stable Continue with [...] update and summary of today's office visit. NESS MANAGER documented in this encounter Miscellaneous Notes * Assessment & Plan Note - Mariangel Quiñonez MD - 10/03/2022 10:20 AM CSTAssociated Problem(s): 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 rheumatoid factor ([facility]) ([facility]) Stable Continue with rheumatology Continue with methotrexate NESS MANAGER * Assessment & Plan Note - Mariangel Quiñonez MD - 10/03/2022 10:19 AM CSTAssociated Problem(s): History of uterine cancer She follows with ob NESS MANAGER * Assessment & Plan Note - Mariangel Quiñonez MD - 10/03/2022 10:18 AM CSTAssociated Problem(s): History of breast cancer Still follows with Dr. Mohan Continue with letrozole NESS MANAGER * Assessment & Plan Note - Mariangel Quiñonez MD - 10/03/2022 10:17 AM CSTAssociated Problem(s): Recurrent pulmonary emboli (CMS/HCC) (HCC) eliquis was stopped because of hx of GI bleeding NESS MANAGER * Addendum Note - Sofiya Watts MA - 10/03/2022 10:00 AM CSTAddended by: SOFIYA WATTS on: 10/03/2022 10:42 AM Modules accepted: Orders NESS MANAGER * Assessment & Plan Note - Mariangel Quiñonez MD - 10/02/2022 9:57 PM WELLNESS MANAGER Associated Problem(s): Encounter for wellness examination Ordered CBC, cmp, lipid, hgb a1c, TSH, Flu given today Colonoscopy:up to date Pap smear:follows with ob Mammo:follows with Dr. Mohan F/u in 1 year for annual NESS MANAGER NESS MANAGER * Assessment & Plan Note - Mariangel Quiñonez MD - 10/02/2022 9:56 PM WELLNESS MANAGER Associated Problem(s): Type 2 diabetes mellitus with [...] ur ratio ordered F/u in 6 months NESS MANAGER * Assessment & Plan Note - Mariangel Quiñonez MD - 10/02/2022 9:55 PM WELLNESS MANAGER Associated Problem(s): Chronic diastolic heart failure (HCC) stable NESS MANAGER * Assessment & Plan Note - Mariangel Quiñonez MD - 10/02/2022 9:55 PM WELLNESS MANAGER Associated Problem(s): Mixed hyperlipidemia Stable / clinically quiescent. Will continue to monitor. Continue statin NESS MANAGER * Assessment & Plan Note - Mariangel Quiñonez MD - 10/02/2022 9:54 PM WELLNESS MANAGER Associated Problem(s): Essential hypertension Bp in the office today BP Readings from Last 1 Encounters: 10/03/22 136/78 Continue current regimen of carvedilol and losartan Recommend DASH diet, heart-healthy lifestyle, exercise. Discussed the risks of hypertension. F/u in1 year NESS MANAGER NESS MANAGER documented in this encounter Plan of [...] 10/03/2022 documented in this encounter Care Teams Community Relations Representative Relationship Specialty Start Date End Date Mariangel Quiñonez MD [address] [address] PCP - General Family Medicine 05/16/22 Neil Ag MD PhD 6 [place] [address] Radiation Oncologist Radiation Oncology 12/17/18 [place] [address] [facility] [address] [place], [place] [id number] Referring Physician General Surgery 12/17/18 [place] [address] [facility] [address] [place], [place] [id number] Medical Oncologist/Gastroenterology Nurse Medical Oncology 12/17/18 [place] [address] [facility] [address] [place] [address] Consulting Physician Gastroenterology 01/07/20 documented as of this encounter
--- OUTSIDE RECORDS SUMMARY | 2024-11-16 15:31 | XMS_ITS | Encounter Summary ---
Author Organization [facility] Address [address] [place] [address] Care Team Providers Care Claim Agent Name Role Phone Francisco Long MD Primary Care Provider [phone] Neil Ag MD PhD Unavailable [phone] Ita estrada MD Unavailable Caron Mohan MD Unavailable Pebbles Felton MD Unavailable [phone] Reason for Visit * Reason Onset Date Comments Covid-19 Home Monitoring 12/08/2021 Encounter Details Date Type Department Care Team (Late st Contact Info) Description 12/08/2021 Telephone [facility] Accountable Care Organization [address] [place] [address] Marleni Chiu, FERNANDO [address] [place] [address] [address] [place] [address] Covid-19 Home Monitoring Social History Tobacco Use [...] on file Legal Sex Female 12:21 PM JOB HAND Gender Identity Not on file Sexual Orientation [...] No Are you experiencing diarrhea? : No HAND documented in this encounter Plan of Treatment Not on file documented as of this encounter Visit Diagnoses Not on filedocumented in this encounter Additional Health Concerns Infection Onset Date Last Indicated Resolved Time COVID19 12/07/2021 12/07/2021 12/17/2021 3:05 AM JOB HAND documented as of this encounter Care Teams Claim Agent Relationship Specialty Start Date End Date Francisco Long MD PCP - General 02/23/17 05/15/22 Neil Ag MD PhD 6 [place] [address] Radiation Oncologist Radiation Oncology 12/17/18 [place] [address] [facility] [address] [place] [address] Referring Physician General Surgery 12/17/18 [place] [address] [facility] [address] [place] [id number] Medical Oncologist/Pest Control Service Sales Agent Medical Oncology 12/17/18 [place] [address] [facility] [address] [place] [address] Consulting Physician Gastroenterology 01/07/20 documented as of this encounter
--- OUTSIDE RECORDS SUMMARY | 2024-11-16 15:31 | XMS_ITS | Encounter Summary ---
Author Organization [facility] Address [address] [place] [address] Care Team Providers Care Publicity Manager Name Role Phone Neil Ag MD PhD Unavailable Ita Vazquez MD Unavailable Caron Mohan MD Unavailable Pebbles Felton MD Unavailable [phone] Mariangel Quiñonez MD Primary Care Provide r Encounter Details Date Type Department Care Team (Late st Contact Info) Description 03/27/2023 Orders Only [facility] Primary Care at [address] [place] [address] Mariangel Quiñonez MD [address] [place] [address] [address] [place] [address] Social History Tobacco Use Types [...] on file 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 Fasting reference interval For someone without known diabetes, a glucose value >125 mg/dL indicates that they may have diabetes and this should be confirmed with a follow-up test. BUN 18 7 - 25 mg/dL [facility] Creatinine 0.91 0.60 - 1.00 mg/dL [facility] eGFR 65 > OR = 60 mL/min/1. 73m2 [facility] Comment: The eGFR is based on the CKD-EPI 2020 equation. To calculate the new eGFR from a previous Creatinine or Cystatin C result, go to https://www.kidney.org/professionals/ kdoqi/gfr%5Fcalculator BUN/creat ratio NOT APPLICABLE 6 - 22 (calc) [facility] Sodium 139 135 - 146 mmol/L [facility] Potassium, pl 4.4 3.5 - 5.3 mmol/L [facility] Chloride 102 98 - 110 mmol/L [facility] CO2 29 20 - 32 mmol/L [facility] Calcium 9.2 8.6 - 10.4 mg/dL [facility] Protein, sr 6.8 6.1 - 8.1 g/dL [facility] Albumin 4.2 3.6 - 5.1 g/dL [facility] GLOBULIN 2.6 1.9 - 3.7 g/dL (calc) [facility] Alb/glob ratio 1.6 1.0 - 2.5 (calc) [facility] Bilirubin, total 0.5 0.2 - 1.2 mg/dL [facility] Alk phos 68 37 - 153 U/L [facility] AST 15 10 - 35 U/L [facility] ALT (SGPT) 11 6 - 29 U/L [facility] 03/27/2023 9:08 AM CDT 03/27/2023 9:11 AM CDT Narrative [facility] - 03/28/2023 11:14 AM CDT FASTING:YES FASTING: YES us Mariangel Quiñonez MD LAB BLOOD ORDERABLES Final Result [facility] [address] [place] [address] * (ABNORMAL) Lipid panel (03/27/2023 9:08 AM CDT) Pathologist [facility] Cholesterol 233(H) <200 mg/dL [facility] [...] LDL-C. Harry SS et al. RANDALL. 2013;310(19): 1649-9490 (http://education.Marine Current Turbines.Stylyt/faq/OCV032) Chol/HDL ratio 3.6 <5.0 (calc) [facility] [...] Quiñonez MD LAB BLOOD ORDERABLES Final Result [facility] [address] [place] [address] * (ABNORMAL) Hemoglobin A1c (03/27/2023 9:08 AM CDT) Hgb A1C 6.2(H) <5.7 % of total Hgb [facility] Comment: For someone without known [...] Quiñonez MD LAB BLOOD ORDERABLES [facility] [address] [place] [address] documented in this encounter Visit Diagnoses Not on filedocumented in this encounter Care Teams Publicity Manager Relationship Specialty Start Date End Date Mariangel Quiñonez MD [address] [facility] [place] [address] PCP - General Family Medicine 05/16/22 Neil Ag MD PhD 6 [place] [address] Radiation Oncologist Radiation Oncology 12/17/18 [place] [address] [facility] [address] [place], [place] [address] Referring Physician General Surgery 12/17/18 [place] [address] [address] Medical Oncologist/Classified Advertising Manager Medical Oncology 12/17/18 [place] [address] [facility] [address] [place] [address] Consulting Physician Gastroenterology 01/07/20 documented as of this encounter
--- OUTSIDE RECORDS SUMMARY | 2024-11-16 15:31 | XMS_ITS | Encounter Summary ---
Author Organization [facility] Address [address] [place] [address] Care Team Providers Care Primary Mill Roller Name Role Phone Neil Ag MD PhD Unavailable Ita Vazquez MD Unavailable Caron Mohan MD Unavailable Pebbles Felton MD Unavailable [phone] Mariangel Quiñonez MD Primary Care Provide r Encounter Details Date Type Department Care Team (Late st Contact Info) Description 07/24/2023 Orders Only [facility] Medical [facility] Primary Care at [address] [place] [address] Mariangel Quiñonez MD [address] [place] [address] [address] [place] [address] Other specified disorders of bone [...] on file 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 Gender Identity Not on file Sexual Orientation Not on file documented as of this encounter Plan of Treatment Not on file documented as of this encounter Visit Diagnoses Diagnosis Other specified disorders of bone density and structure, multiple sites- Primary documented in this encounter Care Teams Primary Mill Roller Relationship Specialty Start Date End Date Mariangel Quiñonez MD [address] [address] PCP - General Family Medicine 05/16/22 Neil Ag MD PhD 6 [place] [address] Radiation Oncologist Radiation Oncology 12/17/18 [place] [address] [facility] [address] [place], [place] [address] Referring Physician General Surgery 12/17/18 [place] [address] [facility] [address] [place], [place] [address] Medical Oncologist/Relay Telegrapher Medical Oncology 12/17/18 [place] [address] [facility] [address] [place] [address] Consulting Physician Gastroenterology 01/07/20 documented as of this encounter
--- OUTSIDE RECORDS SUMMARY | 2024-11-16 15:31 | XMS_ITS | Encounter Summary ---
Author Organization [facility] Healthcare Address [address] [place] [address] Care Team Providers Care Service Desk Associate Name Role Phone Neil Ag MD PhD Unavailable Ita Vazquez MD Unavailable Caron Mohan MD Unavailable Pebbles Felton MD Unavailable [phone] Mariangel Arteaga MD Primary Care Provide r Reason for Visit * Reason Comments Preventative Care Hip Pain She is here today fo r a yearly check up and she has been having some pain in her left hip and would like to get a referral to pain management Encounter Details Date Type Department Care Team (Late st Contact Info) Description 12/06/2023 11:30 AM MANAGER INVESTMENT Office Visit [facility] Primary Care at [address] [place] [address] Mariangel Arteaga MD [address] [place] [address] [address] [place] [address] Encounter for wellness examination (Primary [...] file Legal Sex Female 12:21 PM MANAGER INVESTMENT Gender Identity Not on file Sexual Orientation Not on file documented as of this encounter Last Filed Vital Signs Vital Sign Reading Time Taken Comments Blood Pressure 132/80 12/06/2023 11:18 AM MANAGER INVESTMENT Pulse 82 12/06/2023 11:18 AM MANAGER INVESTMENT Temperature - - Respiratory Rate - - Oxygen Saturation 96% 12/06/2023 11:18 AM MANAGER INVESTMENT Inhaled Oxygen Concentration - - Weight 81.6 kg (180 lb) 12/06/2023 11:18 AM MANAGER INVESTMENT Height 170.2 cm (5' 7 ) 12/06/2023 11:18 AM MANAGER INVESTMENT Body Mass Index 28.19 12/06/2023 11:18 AM MANAGER INVESTMENT documented in this encounter Patient Instructions * Patient Instructions* Mariangel Arteaga MD - 12/06/2023 11:30 AM MANAGER INVESTMENT My product manager medical device and I are thankful you have trusted [...] were not feeling your best! -Dr. Arteaga GER INVESTMENT documented in this encounter Ordered Prescriptions Prescription [...] mammogram, encounter for 1946 Uterine cancer (CMS/HCC) ([facility]) 04/2018 Allergies Allergen Reactions Atorvastatin Muscle pain [...] aches Lipid panel ordered Recurrent pulmonary emboli ([facility]) ([facility]) Assessment & Plan: eliquis was stopped because of hx of GI bleeding Type 2 diabetes mellitus with hyperlipidemia ([facility]) Assessment & Plan: The patient was counseled [...] involving multiple sites with positive rheumatoid factor ([facility]) ([facility]) Assessment & Plan: Stable Continue with rheumatology [...] the plan of care. Mariangel Arteaga MD GER INVESTMENT documented in this encounter Miscellaneous Notes * Assessment & Plan Note - Mariangel Arteaga MD - 12/06/2023 12:20 PM CSTAssociated Problem(s): Iron deficiency anemia Stable / clinically quiescent. Will continue to monitor. Iron panel ordered GER INVESTMENT * Assessment & Plan Note - Mariangel Arteaga MD - 12/06/2023 11:30 AM CSTAssociated Problem(s): Left hip pain New concern Not at goal Muscle spasm Referral to physical therapy Flexeril 5mg at night Do not operate heavy machinery If no improvement will get xrays and referral to pain management F/u prn GER INVESTMENT GER INVESTMENT * Addendum Note - Mariangel Arteaga MD - 12/06/2023 11:30 AM CSTAddended by: MARIANGEL ARTEAGA on: 12/06/2023 04:41 PM Modules accepted: Orders GER INVESTMENT * Assessment & Plan Note - Mariangel Arteaga MD - 12/06/2023 7:17 AM MANAGER INVESTMENT Associated Problem(s): Encounter for wellness examination Ordered CBC, cmp, lipid, hgb a1c, TSH, Flu declines Zoster declines pcv20 declines Colonoscopy:up to date Pap smear:followed with ob Mammo:follows with Dr. Mohan F/u in 1 year for annual GER INVESTMENT GER INVESTMENT * Assessment & Plan Note - Mariangel Arteaga MD - 12/06/2023 7:16 AM MANAGER INVESTMENT Associated Problem(s): 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 rheumatoid factor (CMS/HCC) (HCC) Stable Continue with rheumatology Continue with methotrexate GER INVESTMENT * Assessment & Plan Note - Mariangel Arteaga MD - 12/06/2023 7:16 AM MANAGER INVESTMENT Associated Problem(s): History of uterine cancer She follows with ob GER INVESTMENT * Assessment & Plan Note - Mariangel Arteaga MD - 12/06/2023 7:16 AM MANAGER INVESTMENT Associated Problem(s): History of breast cancer Still follows with Dr. Mohan Continue with letrozole GER INVESTMENT * Assessment & Plan Note - Mariangel Arteaga MD - 12/06/2023 7:16 AM MANAGER INVESTMENT Associated Problem(s): Type 2 diabetes mellitus with [...] ur ratio ordered F/u in 6 months GER INVESTMENT GER INVESTMENT * Assessment & Plan Note - Mariangel Arteaga MD - 12/06/2023 7:16 AM MANAGER INVESTMENT Associated Problem(s): Recurrent pulmonary emboli (CMS/HCC) (HCC) eliquis was stopped because of hx of GI bleeding GER INVESTMENT * Assessment & Plan Note - Mariangel Arteaga MD - 12/06/2023 7:15 AM MANAGER INVESTMENT Associated Problem(s): Mixed hyperlipidemia Stable / clinically quiescent. Will continue to monitor. Unable to tolerate statin medication at any dose Causes muscle aches Lipid panel ordered GER INVESTMENT GER INVESTMENT * Assessment & Plan Note - Mariangel Arteaga MD - 12/06/2023 7:15 AM MANAGER INVESTMENT Associated Problem(s): Essential hypertension Bp in the office today BP Readings from Last 1 Encounters: 04/03/23 130/62 Continue current regimen of carvedilol and losartan 100mg daily Recommend DASH diet, heart-healthy lifestyle, exercise. Discussed the risks of hypertension. F/u in 6 months GER INVESTMENT GER INVESTMENT * Assessment & Plan Note - Mariangel Arteaga MD - 12/06/2023 7:15 AM MANAGER INVESTMENT Associated Problem(s): Chronic diastolic heart failure (HCC) stable GER INVESTMENT documented in this encounter Plan of Treatment [...] documented as of this encounter Care Teams Service Desk Associate Relationship Specialty Start Date End Date Mariangel Arteaga MD [address] [address] PCP - General Family Medicine 05/16/22 Neil Ag MD PhD 6 [place] [address] Radiation Oncologist Radiation Oncology 12/17/18 [place] [address] [address] [facility] [address] [place] [address] Referring Physician General Surgery 12/17/18 [place] [address] [address] Medical Oncologist/Screw Machine Operator Swiss Type Medical Oncology 12/17/18 [place] [address] [address] [address] Consulting Physician Gastroenterology 01/07/20 documented as of this encounter
--- OUTSIDE RECORDS SUMMARY | 2024-11-16 15:31 | XMS_ITS | Encounter Summary ---
Author Organization [facility] Healthcare Address [address] [place] [address] Care Team Providers Care Diamond Setter Apprentice Name Role Phone Neil Ag MD PhD Unavailable Ita Vazquez MD Unavailable Caron Mohan MD Unavailable [phone] Pebbles Felton MD Unavailable [phone] Mariangel Quiñonez MD Primary Care Provide r Reason for Visit * Reason Onset Date Comments Medical Question/Miscellaneous 11/27/2023 Encounter Details Date Type Department Care Team (Late st Contact Info) Description 11/27/2023 Telephone [facility] Primary Care at [address] [place] [address] Mariangel Quiñonez MD [address] [place] [address] [address] [place] [address] Medical Question/Miscellaneous Social History Tobacco [...] on file Legal Sex Female 12:21 PM BRAIDED RUG MAKER Gender Identity Not on file Sexual Orientation Not on file documented as of this encounter Miscellaneous Notes * Telephone Encounter - Paula Downing MA - 11/28/2023 1:50 PM BRAIDED RUG MAKER Spoke with patient to inform her that she needed an appointment to get referred to the pain management and scheduled her an appointment DED RUG MAKER * Telephone Encounter - Mariangel Quiñonez MD - 11/28/2023 12:39 PM BRAIDED RUG MAKER I have not seen her for hip pain. She would need to be seen and evaluated DED RUG MAKER * Telephone Encounter - Winnie Vences - 11/27/2023 3:46 PM CST Call Back Caller???s Concern: [place]. Patient states there are three doctors there and will be assigned one when she goes. Does message need to be routed? Yes-Action Needed DED RUG MAKER * Telephone Encounter - Anitra Pinto - 11/27/2023 3:44 PM CST LMOM--need to know the name of who the pt wants to see, and then we will have to send this message to Dr Roper to see if she wants to see the pt first. DED RUG MAKER * Telephone Encounter - Briana Diggs - 11/27/2023 8:48 AM CST Medical Question/Miscellaneous Caller???s Concern: Patient called and needs ambulatory referral to pain management for left hip pain faxed at [phone] so she can schedule appt. Does message need to be routed? Yes-Action Needed DED RUG MAKER documented in this encounter Plan of Treatment Not on file documented as of this encounter Visit Diagnoses Not on filedocumented in this encounter Care Teams Diamond Setter Apprentice Relationship Specialty Start Date End Date Mariangel Quiñonez MD [address] [address] PCP - General Family Medicine 05/16/22 Neil Ag MD PhD 6 [place] [address] Radiation Oncologist Radiation Oncology 12/17/18 [place] [address] [address] [place] [address] Referring Physician General Surgery 12/17/18 [place] [address] [address] [place] [address] Medical Oncologist/Head Of Housekeeping Medical Oncology 12/17/18 [place] [address] [facility] [address] [place] [address] Consulting Physician Gastroenterology 01/07/20 documented as of this encounter
--- OUTSIDE RECORDS SUMMARY | 2024-11-16 15:31 | XMS_ITS | Encounter Summary ---
Author Organization [facility] Medical [facility] Address [address] [place] [address] Care Team Providers Care Channel Sales Manager Name Role Phone Neil Ag MD PhD Unavailable Ita Vazquez MD Unavailable Caron Mohan MD Unavailable Pebbles Felton MD Unavailable [phone] Mariangel Quiñonez MD Primary Care Provide r Reason for Referral * Procedure (Routine) - Closed Specialty Diagnoses / Procedures Referred By Contac t Referred To Contact Diagnoses Impacted cerumen of right ear Procedures Ear Cerumen Removal Hellen Way NP [address] [place] [address] Phone: tel: fax: [facility] Referral ID Status Reason Start Date Expiration Date Visits Re quested Visits Authorized [id number] Closed 12/08/2022 01/07/2024 1 1 TER CASE MANAGER Reason for Visit * Reason Comments COVID-19 EVALUATION [facility]- Stuffy nose and Cough. Onset 12/04/22, Vaccinated. OTC Tyenol (last dose last night). No known exp, No covid hx. Encounter Details Date Type Department Care Team (Late st Contact Info) Description 12/08/2022 11:30 AM SHELTER CASE MANAGER Office Visit [facility] [address] [place] [address], APOLINAR [address] [place] [address] COVID-19 (Primary Dx); Wheezing; Suspected COVID-19 virus [...] on file Legal Sex Female 12:21 PM SHELTER CASE MANAGER Gender Identity Not on file Sexual Orientation Not on file documented as of this encounter Last Filed Vital Signs Vital Sign Reading Time Taken Comments Blood Pressure 154/68 12/08/2022 10:52 AM SHELTER CASE MANAGER Pulse 82 12/08/2022 10:52 AM SHELTER CASE MANAGER Temperature 36.5 ??C (97.7 ??F) 12/08/2022 10:52 AM C Respiratory Rate 25 12/08/2022 10:52 AM SHELTER CASE MANAGER Oxygen Saturation 96% 12/08/2022 10:52 AM SHELTER CASE MANAGER Inhaled Oxygen Concentration - - Weight 85.5 kg (188 lb 6.4 oz) 12/08/2022 10:52 AM SHELTER CASE MANAGER Height 170.2 cm (5' 7 ) 12/08/2022 10:52 AM SHELTER CASE MANAGER Body Mass Index 29.51 12/08/2022 10:52 AM SHELTER CASE MANAGER documented in this encounter Patient Instructions * Patient Instructions* Hellen Way NP - 12/08/2022 11:30 AM SHELTER CASE MANAGER The rapid COVID test performed today in [...] and the virus that causes it. The [facility] will be reaching out [...] loosen secretions in the nose and lungs. Unwg-isp-hmmqcww cold medicines will not shorten the length of time you???re sick, but they may be helpful for relieving the following symptoms: headache, cough, sore throat, and nasal and sinus congestion. If you take prescription medicines, ask your healthcare provider or pharmacist which esch-emm-wdbolqs medicines are safe to use. (Note: DO [...] yourself. Get rest and stay hydrated. Take kkjc-kgr-tmrgybw medicines to help you feelbetter. Stay in [...] and need to call 911, notify the foam gun operator that you have or think you [...] with someone who is sick visit https://www.cdc .gov/coronavirus/2019-ncov/wnqge-xrji-ktybae/yjnaok-xa-ieugu-quarters.html For more information on COVID-19 and pets [...] symptoms, get a test & stay home TER CASE MANAGER documented in this encounter Ordered Prescriptions [...] No covid hx. ) Patient presents to [facility] for stuffy nose, right ear fullness, [...] tenderness or frontal sinus tenderness. Mouth/Throat: Lips: Vardaman. Mouth: Mucous membranes are moist. Pharynx: Oropharynx [...] Phan Murray MD at 12/12/2022 9:38 AM SHELTER CASE MANAGER TER CASE MANAGER TER CASE MANAGER documented in this encounter Plan of Treatment Not on file documented as of this encounter Procedures Procedure Name Priority Date/Time Associated Diagnosis Comments NH REMOVAL IMPACTED CERUMEN INSTRUMENTATION UNILAT Routine 12/08/2022 11:30 AM SHELTER CASE MANAGER Impacted cerumen of right ear COVID-19 POC Routine 12/08/2022 11:08 AM SHELTER CASE MANAGER Suspected COVID-19 virus infection documented in this encounter Results * NH REMOVAL IMPACTED CERUMEN INSTRUMENTATION UNILAT (12/08/2022 11:30 AM SHELTER CASE MANAGER) Narrative Phan Murray MD - 12/08/2022 11:30 AM SHELTER CASE MANAGER Hellen Way NP ? 12/08/2022 12:26 PM [...] tenderness and requested procedure to be terminated. eHllen Way INCINERATOR PLANT SUPERVISOR IN CLINIC/BEDSIDE ORDERABLES Fin al Result * (ABNORMAL) COVID-19 POC (12/08/2022 11:08 AM SHELTER CASE MANAGER) Pathologist [facility] COVID-19 Ag POC (BD Veritor) Positive( A) Presumptive Negative, Invalid [facility] Nasal 12/08/2022 11:0 8 AM SHELTER CASE MANAGER Hellen Way INCINERATOR PLANT SUPERVISOR POINT OF CARE TEST ORDERABLES Fi nal Result [facility] [employer] [address] [place] [address] documented in this encounter Visit Diagnoses Diagnosis COVID-19- Primary Wheezing Suspected COVID-19 virus infection Impacted cerumen of right ear Impacted cerumen documented in this encounter Additional Health Concerns Infection Onset Date Last Indicated Resolved Time COVID19 12/08/2022 12/08/2022 12/18/2022 3:05 AM SHELTER CASE MANAGER documented as of this encounter Care Teams Channel Sales Manager Relationship Specialty Start Date End Date Mariangel Quiñonez MD 2 [facility] [address] [address] PCP - General Family Medicine 05/16/22 Neil Ag MD PhD 6 [facility] [place] [address] Radiation Oncologist Radiation Oncology 12/17/18 [place] [address] [facility] [address] [place] [address] Referring Physician General Surgery 12/17/18 [place] [address] [facility] [address] [place] [id number] Medical Oncologist/Waistline Joiner Medical Oncology 12/17/18 [place] [address] [facility] [address] [place] [address] Consulting Physician Gastroenterology 01/07/20 documented as of this encounter
--- OUTSIDE RECORDS SUMMARY | 2024-11-16 15:31 | XMS_ITS | Encounter Summary ---
Author Organization [facility] Address [address] [facility] [facility] [address] [place] [address] Care Team Providers Care Grocery Deliverer Name Role Phone Francisco Long MD Primary Care Provider Neil Ag MD PhD Unavailable [phone] Ita estrada MD Unavailable Caron Mohan MD Unavailable Pebbles Felton MD Unavailable [phone] Encounter Details Date Type Department Care Team (Late st Contact Info) Description 03/28/2022 Orders Only [facility] 2 [facility] [address] [place] [address] Francisco Long MD [address] [place] [address] [address] [place] [address] Type 2 diabetes mellitus with [...] on file Legal Sex Female 12:21 PM DRY PRESS OPERATOR HELPER Gender Identity Not on file [...] MD LAB BLOOD ORDERABLES Final Res ult [employer] [facility] [address] [place] [address] documented in this encounter Visit Diagnoses Diagnosis 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)- Primary documented in this encounter Additional Health Concerns Infection Onset Date Last Indicated Resolved Time COVID: Recovered Comment:Added based on recent COVID infection. 12/17/2021 03/02/2022 04/16/2022 3:05 AM C DT documented as of this encounter Care Teams Grocery Deliverer Relationship Specialty Start Date End Date Francisco Long MD PCP - General 02/23/17 05/15/22 Neil Ag MD PhD 6 [place] [address] Radiation Oncologist Radiation Oncology 12/17/18 [place] [address] [id number] Referring Physician General Surgery 12/17/18 [place] [address] [id number] Medical Oncologist/Purchase Analyst Medical Oncology 12/17/18 [place] [address] [address] Consulting Physician Gastroenterology 01/07/20 documented as of this encounter
--- OUTSIDE RECORDS SUMMARY | 2024-11-16 15:31 | XMS_ITS | Encounter Summary ---
Author Organization [facility] Address [address] [facility] [address] [place] [address] Care Team Providers Care Armoured Corps Officer Name Role Phone Neil Ag MD PhD Unavailable Ita Vazquez MD Unavailable Carno Mohan MD Unavailable Pebbles Felton MD Unavailable [phone] Mariangel Quiñonez MD Primary Care Provide r Reason for Visit * Reason Onset Date Comments Medical Question/Miscellaneous 04/05/2023 Encounter Details Date Type Department Care Team (Late st Contact Info) Description 04/05/2023 Telephone [facility] Primary Care at [address] [place] [address] Mariangel Quiñonez MD [address] [place] [address] [address] [place] [address] Medical Question/Miscellaneous Social History Tobacco Use Types [...] on file Legal Sex Female 12:21 PM PROCESS EQUIPMENT OPERATOR Gender Identity Not on file Sexual [...] scooter to get around, faxedto: fax # [phone], atten: Delaney. Please Advise. Caller???s Call back #: [phone]. Does message need to be routed? Yes-Action Needed documented in this encounter Plan of Treatment Not on file documented as of this encounter Visit Diagnoses Not on filedocumented in this encounter Care Teams Armoured Corps Officer Relationship Specialty Start Date End Date Mariangel Quiñonez MD [address] [address] PCP - General Family Medicine 05/16/22 Neil Ag MD PhD 6 [place] [address] Radiation Oncologist Radiation Oncology 12/17/18 [place] [address] [id number] Referring Physician General Surgery 12/17/18 [place] [address] [address] [address] Medical Oncologist/Manager Game Medical Oncology 12/17/18 [place] [address] [address] [address] Consulting Physician Gastroenterology 01/07/20 documented as of this encounter
--- OUTSIDE RECORDS SUMMARY | 2024-11-16 15:31 | XMS_ITS | Encounter Summary ---
Author Organization [facility] Medical Group Address [address] [facility] [address] [place] [address] Care Team Providers Care Shingle Grader Name Role Phone Neil Ag MD PhD Unavailable Ita Vazquez MD Unavailable Caron Mohan MD Unavailable Pebbles Felton MD Unavailable [phone] Mariangel Quiñonez MD Primary Care Provide r Reason for Visit * Reason Comments Diabetes Hypertension Encounter Details Date Type Department Care Team (Late st Contact Info) Description 04/03/2023 11:00 AM CDT Office Visit [facility] Medical Group Primary Care at [address] [place] [address] Mariangel Quiñonez MD [address] [place] [address] [address] [place], [place] [id number] Mixed hyperlipidemia (Primary Dx); BMI 28.0-28.9,adult; Essential [...] on file 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 Gender Identity Not on file Sexual [...] night Swimmers ear for ear wax My certified medical aide and I are thankful you have [...] (HCC) documented in this encounter Care Teams Shingle Grader Relationship Specialty Start Date End Date Mariangel Quiñonez MD 2 [facility] [address] [address] PCP - General Family Medicine 05/16/22 Neil Ag MD PhD 6 [facility] [address] Radiation Oncologist Radiation Oncology 12/17/18 [place] [address] [facility] [address] [place] [address] Referring Physician General Surgery 12/17/18 [place] [address] [facility] [address] [place] [id number] Medical Oncologist/Showcase Trimmer Medical Oncology 12/17/18 [place] [address] [facility] [address] [place] [address] Consulting Physician Gastroenterology 01/07/20 documented as of this encounter
--- OUTSIDE RECORDS SUMMARY | 2024-11-16 15:31 | XMS_ITS | Encounter Summary ---
Author Organization [facility] Medical Group Address [address] [facility] [address] [place] [address] Care Team Providers Care Grid Trimmer Name Role Phone Francisco Long MD Primary Care Provider [phone] Neil Ag MD PhD Unavailable [phone] Ita Vazquez MD Unavailable Caron Mohan MD Unavailable Pebbles Felton MD Unavailable [phone] Reason for Visit * Reason Comments Hypertension Diabetes Anemia Encounter Details Date Type Department Care Team (Late st Contact Info) Description 03/28/2022 10:00 AM CDT Office Visit [facility] [address] [facility] [address] [place] [address] Francisco Long MD [address] [place] [address] [address] [place] [address] 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 Chun for rheumatoid arthritis Vitals: 03/28/22 [...] documented as of this encounter Care Teams Grid Trimmer Relationship Specialty Start Date End Date Francisco Long MD PCP - General 02/23/17 05/15/22 Neil Ag MD PhD 6 [place] [address] Radiation Oncologist Radiation Oncology 12/17/18 [place] [address] [facility] [address] [place] [id number] Referring Physician General Surgery 12/17/18 [place] [address] [facility] 120 [place], [place] [phone] Medical Oncologist/Box Person Medical Oncology 12/17/18 [place] [address] [facility] [address] [place], [place] [address] Consulting Physician Gastroenterology 01/07/20 documented as of this encounter
--- OUTSIDE RECORDS SUMMARY | 2024-11-16 15:31 | XMS_ITS | Encounter Summary ---
Author Organization [facility] Address [address] [facility] [address] [place] [address] Care Team Providers Care School Speech Therapist Name Role Phone Francisco Long MD Primary Care Provider [phone] Neil Ag MD PhD Unavailable [phone] Ita estrada MD Unavailable Caron Mohan MD Unavailable [phone] Pebbles Felton MD Unavailable [phone] Encounter Details Date Type Department Care Team (Late st Contact Info) Description 03/29/2022 Telephone [place] [facility] 2 [facility] [address] [place] [address] Francisco Long MD [address] [place] [address] [address] [place] [address] Social History Tobacco Use Types [...] on file 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 Gender Identity Not on file Sexual Orientation [...] documented as of this encounter Care Teams School Speech Therapist Relationship Specialty Start Date End Date Francisco Long MD PCP - General 02/23/17 05/15/22 Neil Ag MD PhD 6 [place] [address] Radiation Oncologist Radiation Oncology 12/17/18 [place] [address] [facility] 120 [place], [place] [address] Referring Physician General Surgery 12/17/18 [place] [address] [facility] 120 [place], [place] [address] Medical Oncologist/Natural Fabricator Medical Oncology 12/17/18 [place] [address] [facility] 120 [place] [address] Consulting Physician Gastroenterology 01/07/20 documented as of this encounter
--- OUTSIDE RECORDS SUMMARY | 2024-11-16 15:31 | XMS_ITS | Encounter Summary ---
Author Organization [facility] Address [address] [facility] [address] [place] [address] Care Team Providers Care Senior It Architect Name Role Phone Francisco Long MD Primary Care Provider [phone] Neil Ag MD PhD Unavailable [phone] Ita estrada MD Unavailable Caron Mohan MD Unavailable [phone] Pebbles Felton MD Unavailable [phone] Reason for Visit * Reason Onset Date Comments Covid-19 Home Monitoring 12/10/2021 Encounter Details Date Type Department Care Team (Late st Contact Info) Description 12/10/2021 Telephone [facility] Accountable Care Organization [address] [place] [id number] Carey Rodriguez [address] [place] [address] [address] [place] [address] Covid-19 Home Monitoring Social History Tobacco Use [...] on file 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 COVID-19 Symptom questionnaire was not completed today, because the patient could not be reached. Next Program Call Due: 12/11/21 AND SAVINGS SECURITIES TRADER documented in this encounter Plan of Treatment Not on file documented as of this encounter Visit Diagnoses Not on filedocumented in this encounter Additional Health Concerns Infection Onset Date Last Indicated Resolved Time COVID19 12/07/2021 12/07/2021 12/17/2021 3:05 AM BANK AND SAVINGS SECURITIES TRADER documented as of this encounter Care Teams Senior It Architect Relationship Specialty Start Date End Date Francisco Long MD PCP - General 02/23/17 05/15/22 Neil Ag MD PhD 6 [place] [address] Radiation Oncologist Radiation Oncology 12/17/18 [place] [address] [address] [facility] [address] [place] [address] Referring Physician General Surgery 12/17/18 [place] [address] [address] [facility] [address] [place] [address] Medical Oncologist/Toaster Operator Medical Oncology 12/17/18 [place] [address] [address] Consulting Physician Gastroenterology 01/07/20 documented as of this encounter
--- OUTSIDE RECORDS SUMMARY | 2024-11-16 15:32 | XMS_ITS | Encounter Summary ---
Author Organization [facility] Address [address] [facility] [address] [place] [address] Care Team Providers Care Executive Community Planning Name Role Phone Francisco Long MD Primary Care Provider [phone] Neil Ag MD PhD Unavailable [phone] Ita Vazquez MD Unavailable Caron Mohan MD Unavailable [phone] Pebbles Felton MD Unavailable [phone] Reason for Visit * Reason Comments Hypertension Anemia Encounter Details Date Type Department Care Team (Late st Contact Info) Description 04/21/2021 10:15 AM CDT Office Visit [place] [facility] 2 [facility] [address] [place] [address] Francisco Long MD [address] [place] [address] [address] [place] [address] Essential hypertension (Primary Dx); Body mass index [...] on file 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 Gender Identity Not on file Sexual Orientation [...] 04/21/2021 added in this encounter Care Teams Executive Community Planning Relationship Specialty Start Date End Date Francisco Long MD PCP - General 02/23/17 05/15/22 Neil Ag MD PhD [address] [place] [address] Radiation Oncologist Radiation Oncology 12/17/18 [place] [address] [id number] Referring Physician General Surgery 12/17/18 [place] [address] [id number] Medical Oncologist/Microsoft Office Instructor Medical Oncology 12/17/18 [place] [address] [id number] Consulting Physician Gastroenterology 01/07/20 documented as of this encounter
--- OUTSIDE RECORDS SUMMARY | 2024-11-16 15:32 | XMS_ITS | Encounter Summary ---
Author Organization [facility] Address [address] [facility] [address] [place] [address] Care Team Providers Care Therapy Teacher Name Role Phone Francisco Long MD Primary Care Provider [phone] Neil Ag MD PhD Unavailable [phone] Ita estrada MD Unavailable Caron Mohan MD Unavailable Pebbles Felton MD Unavailable [phone] Encounter Details Date Type Department Care Team (Late st Contact Info) Description 02/21/2021 Telephone [facility] Gastroenterology at [address] [place] [address] Shayna Edge MA Social History [...] on file 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 Gender Identity Not on file Sexual [...] will be notified Can be faxed to [phone] documented in this encounter Plan of Treatment Not on file documented as of this encounter Visit Diagnoses Not on filedocumented in this encounter Care Teams Therapy Teacher Relationship Specialty Start Date End Date Francisco Long MD PCP - General 02/23/17 05/15/22 Neil Ag MD PhD 6 [place] [address] Radiation Oncologist Radiation Oncology 12/17/18 [place] [address] [address] [place] [id number] Referring Physician General Surgery 12/17/18 [place] [address] [address] [place] [address] Medical Oncologist/Plate Filler Medical Oncology 12/17/18 [place] [address] [address] [place] [address] Consulting Physician Gastroenterology 01/07/20 documented as of this encounter
--- OUTSIDE RECORDS SUMMARY | 2024-11-16 15:32 | XMS_ITS | Encounter Summary ---
Author Organization [facility] Address [address] [facility] [address] [place] [address] Care Team Providers Care Radio Equipment Repairer Name Role Phone Francisco Long MD Primary Care Provider [phone] Neil Ag MD PhD Unavailable [phone] Ita estrada MD Unavailable Caron Mohan MD Unavailable Pebbles Felton MD Unavailable [phone] Encounter Details Date Type Department Care Team (Late st Contact Info) Description 03/21/2021 Orders Only [place] [facility] 2 [facility] [address] [place] [address] Francisco Long MD [address] [place] [address] [address] [place] [address] Iron deficiency anemia due to [...] file 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 Gender Identity Not on file Sexual Orientation [...] 03/21/2021 documented in this encounter Care Teams Radio Equipment Repairer Relationship Specialty Start Date End Date Francisco Long MD PCP - General 02/23/17 05/15/22 Neil Ag MD PhD 6 [place] [id number] Radiation Oncologist Radiation Oncology 12/17/18 [place] [address] [facility] [facility] 120 [place], [place] [address] Referring Physician General Surgery 12/17/18 [place] [address] [facility] [address] [place] [id number] Medical Oncologist/Montessori Teacher Medical Oncology 12/17/18 [place] [address] [facility] [address] [place] [address] Consulting Physician Gastroenterology 01/07/20 documented as of this encounter
--- OUTSIDE RECORDS SUMMARY | 2024-11-16 15:32 | XMS_ITS | Encounter Summary ---
Author Organization [facility] Address [address] [facility] [address] [place] [address] Care Team Providers Care Branch Services Manager Name Role Phone Francisco Long MD Primary Care Provider [phone] Neil Ag MD PhD Unavailable [phone] Ita estrada MD Unavailable Caorn Mohan MD Unavailable Pebbles Felton MD Unavailable [phone] Reason for Visit * Reason Comments discuss medications Encounter Details Date Type Department Care Team (Late st Contact Info) Description 03/09/2021 10:30 AM CDT Office Visit [place] [facility] 2 [facility] [address] [place] [address] Larry Wetzel PA [address] [place] [address] [address] [place] [address] 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 [...] 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 at bedtime only. Her railway track plant operator is Adiel. Pt tried to call [...] involving multiple sites with positive rheumatoid factor ([facility]) (Primary) Comments: Will reach out to GI [...] documented as of this encounter Care Teams Branch Services Manager Relationship Specialty Start Date End Date Francisco Long MD PCP - General 02/23/17 05/15/22 Neil Ag MD PhD 6 [place] [address] Radiation Oncologist Radiation Oncology 12/17/18 [place] [address] [facility] 120 [place] [address] Referring Physician General Surgery 12/17/18 [place] [address] [facility] 120 [place], [place] [address] Medical Oncologist/Propeller Driven Airplane Mechanic Medical Oncology 12/17/18 [place] [address] [facility] [address] [place] [address] Consulting Physician Gastroenterology 01/07/20 documented as of this encounter
--- OUTSIDE RECORDS SUMMARY | 2024-11-16 15:32 | XMS_ITS | Encounter Summary ---
Author Organization [facility] Address [address] [facility] [address] [place] [address] Care Team Providers Care Cable Spooler Name Role Phone Francisco Long MD Primary Care Provider [phone] Neil Ag MD PhD Unavailable [phone] Ita estrada MD Unavailable Caron Mohan MD Unavailable Pebbles Felton MD Unavailable [phone] Encounter Details Date Type Department Care Team (Late st Contact Info) Description 06/29/2021 Orders Only [place] [facility] 2 [facility] [address] [place] [address] Francisco Long MD [address] [place] [address] [address] [place] [address] Social History Tobacco Use Types [...] 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 Gender Identity Not on file Sexual [...] on filedocumented in this encounter Care Teams Cable Spooler Relationship Specialty Start Date End Date Francisco Long MD PCP - General 02/23/17 05/15/22 Neil Ag MD PhD 6 [place] [address] Radiation Oncologist Radiation Oncology 12/17/18 [place] [address] [facility] [address] [place], [place] [address] Referring Physician General Surgery 12/17/18 [place] [address] [place], [place] [address] Medical Oncologist/Cryptanalyst Medical Oncology 12/17/18 [place] [address] [place] [address] Consulting Physician Gastroenterology 01/07/20 documented as of this encounter
--- OUTSIDE RECORDS SUMMARY | 2024-11-16 15:32 | XMS_ITS | Encounter Summary ---
Author Organization [facility] Address [address] [facility] [address] [place] [address] Care Team Providers Care Semiconductor Processing Technician Name Role Phone Francisco Long MD Primary Care Provider [phone] Neil Ag MD PhD Unavailable Ita Vazquez MD Unavailable Caron Mohan MD Unavailable [phone] Pebbles Felton MD Unavailable [phone] Yamileth Meade MA Unavailable [phone] Reason for Visit * Reason Comments Hospital Follow Up Encounter Details Date Type Department Care Team (Late st Contact Info) Description 04/26/2021 2:30 PM CDT Office Visit [place] [facility] 2 [facility] [address] [place] [address] Francisco Long MD [address] [place] [address] 220 [place] [address] Left-sided Shi's palsy (Primary Dx); Class 1 [...] on file 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 Gender Identity Not on file Sexual [...] present documented in this encounter Care Teams Semiconductor Processing Technician Relationship Specialty Start Date End Date Francisco Long MD PCP - General 02/23/17 05/15/22 Neil Ag MD PhD 6 [place] [address] Radiation Oncologist Radiation Oncology 12/17/18 [place] [address] [facility] 120 [place] [address] Referring Physician General Surgery 12/17/18 [place] [address] [address] [facility] 120 [place] [address] Medical Oncologist/Head Still Operator Medical Oncology 12/17/18 [place] [address] [address] [facility] 120 [place] [address] Consulting Physician Gastroenterology 01/07/20 Yamileth Meade MA [address] [place] [address] [address] [place] [address] ACO Care Desk Attendant 04/26/21 04/26/21 documented as of this encounter
--- OUTSIDE RECORDS SUMMARY | 2024-11-16 15:32 | XMS_ITS | Encounter Summary ---
Author Organization [facility] Address [address] [facility] [address] [place] [address] Care Team Providers Care Fermentation Scientist Name Role Phone Francisco Long MD Primary Care Provider [phone] Neil Ag MD PhD Unavailable [phone] Ita estrada MD Unavailable Caron Mohan MD Unavailable Pebbles Felton MD Unavailable [phone] Encounter Details Date Type Department Care Team (Late st Contact Info) Description 03/21/2021 Telephone [place] [facility] 2 [facility] [address] [place] [address] Francisco Long MD [address] [place] [address] 220 [place] [address] Social History Tobacco Use Types [...] on file 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 Gender Identity Not on file Sexual [...] on filedocumented in this encounter Care Teams Fermentation Scientist Relationship Specialty Start Date End Date Francisco Long MD PCP - General 02/23/17 05/15/22 Neil Ag MD PhD 6 [place] [address] Radiation Oncologist Radiation Oncology 12/17/18 [place] [address] [address] [place] [address] [place], [place] [address] Referring Physician General Surgery 12/17/18 [place] [address] [address] [address] [place] [address] Medical Oncologist/Zigzag Elastic Attacher Medical Oncology 12/17/18 [place] [address] [address] [address] [place] [address] Consulting Physician Gastroenterology 01/07/20 documented as of this encounter
--- OUTSIDE RECORDS SUMMARY | 2024-11-16 15:32 | XMS_ITS | Encounter Summary ---
Author Organization [facility] Address [address] [facility] [address] [place] [address] Care Team Providers Care Obstetrics Scrub Nurse Name Role Phone Francisco Long MD Primary Care Provider [phone] Neil Ag MD PhD Unavailable [phone] Ita estrada MD Unavailable Caron Mohan MD Unavailable [phone] Pebbles Felton MD Unavailable [phone] Encounter Details Date Type Department Care Team (Late st Contact Info) Description 01/25/2021 Telephone [place] [facility] 2 [facility] [address] [place] [address] Francisco Long MD [address] [place] [address] [address] [place] [address] Social History Tobacco Use Types [...] file 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 Gender Identity Not on file Sexual Orientation Not on file documented as of this encounter Miscellaneous Notes * Telephone Encounter - Katie Apple - 01/25/2021 12:03 PM CST Error BOSS documented in this encounter Plan of Treatment Not on file documented as of this encounter Visit Diagnoses Not on filedocumented in this encounter Care Teams Obstetrics Scrub Nurse Relationship Specialty Start Date End Date Francisco Long MD PCP - General 02/23/17 05/15/22 Neil Ag MD PhD 6 [place] [address] Radiation Oncologist Radiation Oncology 12/17/18 [place] [address] [facility] [address] [place], [place] [id number] Referring Physician General Surgery 12/17/18 [place] [address] [facility] [address] [place], [place] [id number] Medical Oncologist/Athletic Events Scorer Medical Oncology 12/17/18 [place] [address] [place], [place] [address] Consulting Physician Gastroenterology 01/07/20 documented as of this encounter
--- OUTSIDE RECORDS SUMMARY | 2024-11-16 15:32 | XMS_ITS | Encounter Summary ---
Author Organization [facility] Address [address] [facility] [address] [place] [address] Care Team Providers Care Slot Shift Supervisor Name Role Phone Francisco Long MD Primary Care Provider [phone] Neil Ag MD PhD Unavailable [phone] Ita estrada MD Unavailable Caron Mohan MD Unavailable Pebbles Felton MD Unavailable [phone] Encounter Details Date Type Department Care Team (Late st Contact Info) Description 02/02/2021 Orders Only [place] [facility] 2 [facility] [address] [place] [address] Francisco Long MD [address] [place] [address] 220 [place] [address] Social History Tobacco Use Types [...] file 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 Gender Identity Not on file Sexual Orientation Not on file documented as of this encounter Plan of Treatment Not on file documented as of this encounter Visit Diagnoses Not on filedocumented in this encounter Care Teams Slot Shift Supervisor Relationship Specialty Start Date End Date Francisco Long MD PCP - General 02/23/17 05/15/22 Neil Ag MD PhD 6 [place] [address] Radiation Oncologist Radiation Oncology 12/17/18 [place] [address] [facility] 120 [place], [place] [address] Referring Physician General Surgery 12/17/18 [place] [address] [facility] [address] [place], [place] [address] Medical Oncologist/Merchandising Intern Medical Oncology 12/17/18 [place] [address] [facility] [address] [place], [place] [address] Consulting Physician Gastroenterology 01/07/20 documented as of this encounter
--- OUTSIDE RECORDS SUMMARY | 2024-11-16 15:32 | XMS_ITS | Encounter Summary ---
Author Organization [facility] Medical [facility] Address [address] [facility] [address] [place] [address] Care Team Providers Care Redevelopment Specialist Name Role Phone Francisco Long MD Primary Care Provider [phone] Neil Ag MD PhD Unavailable [phone] Ita estrada MD Unavailable Caron Mohan MD Unavailable Pebbles Felton MD Unavailable [phone] Encounter Details Date Type Department Care Team (Late st Contact Info) Description 01/24/2021 Orders Only [place] [facility] 2 [facility] [address] [place] [address] Francisco Long MD [address] [place] [address] 220 [place] [address] Social History Tobacco Use Types [...] file 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 Gender Identity Not on file Sexual Orientation Not on file documented as of this encounter Plan of Treatment Not on file documented as of this encounter Visit Diagnoses Not on filedocumented in this encounter Care Teams Redevelopment Specialist Relationship Specialty Start Date End Date Francisco Long MD PCP - General 02/23/17 05/15/22 Neil Ag MD PhD 6 [place] [address] Radiation Oncologist Radiation Oncology 12/17/18 [place] [address] [facility] 120 [place], [place] [address] Referring Physician General Surgery 12/17/18 [place] [address] [facility] 120 [place], [place] [address] Medical Oncologist/Breakdown Worker Medical Oncology 12/17/18 [place] [address] [facility] 120 [place], [place] [address] Consulting Physician Gastroenterology 01/07/20 documented as of this encounter
--- OUTSIDE RECORDS SUMMARY | 2024-11-16 15:32 | XMS_ITS | Encounter Summary ---
Author Organization [facility] Address [address] [facility] [address] [place] [address] Care Team Providers Care Decal Transferrer Name Role Phone Francisco Long MD Primary Care Provider [phone] Neil Ag MD PhD Unavailable [phone] Ita estrada MD Unavailable Caron Mohan MD Unavailable Pebbles Felton MD Unavailable [phone] Encounter Details Date Type Department Care Team (Late st Contact Info) Description 01/31/2021 Telephone [place] [facility] 2 [facility] [address] [place] [address] Francisco Long MD [address] [place] [address] 220 [place] [address] Social History Tobacco Use Types [...] on file 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 OF PRODUCT documented in this encounter Plan of Treatment Not on file documented as of this encounter Visit Diagnoses Not on filedocumented in this encounter Care Teams Decal Transferrer Relationship Specialty Start Date End Date Francisco Long MD PCP - General 02/23/17 05/15/22 Neil Ag MD PhD 6 [place] [address] Radiation Oncologist Radiation Oncology 12/17/18 [place] [address] [facility] [address] [facility] [address] Referring Physician General Surgery 12/17/18 [place] [address] [facility] [address] [facility], [place] [address] Medical Oncologist/[place]on Medical Oncology 12/17/18 [place] [address] [address] [facility] [address] [place] [address] Consulting Physician Gastroenterology 01/07/20 documented as of this encounter
--- OUTSIDE RECORDS SUMMARY | 2024-11-16 15:32 | XMS_ITS | Encounter Summary ---
Author Organization [facility] Address [address] [facility] [address] [place] [address] Care Team Providers Care Travel Accommodations Rater Name Role Phone Francisco Long MD Primary Care Provider [phone] Neil Ag MD PhD Unavailable [phone] Ita estrada MD Unavailable Caron Mohan MD Unavailable Pebbles Felton MD Unavailable [phone] Encounter Details Date Type Department Care Team (Late st Contact Info) Description 02/03/2021 Telephone [place] [facility] [address] [facility] [address] [place] [address] Francisco Long MD [address] [place] [address] [address] [place] [address] Social History Tobacco Use Types [...] file 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 Gender Identity Not on file Sexual [...] Jami Pettit MA - 02/04/2021 9:32 AM LIBRARY 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 Patient aware appt scheduled for 02/10/21 at 1:00 ARY 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 * Telephone Encounter - Francisco Long [...] week in the office to discuss further ARY 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 * Telephone Encounter - Jami Pettit MA - 02/03/2021 2:22 PM LIBRARY 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 Is she supposed to restart any of her medications, that were stopped ARY 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 * Telephone Encounter - Francisco Long [...] sure that she was cleaned out completely ARY 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 documented in this encounter Plan of Treatment Not on file documented as of this encounter Visit Diagnoses Not on filedocumented in this encounter Care Teams Travel Accommodations Rater Relationship Specialty Start Date End Date Francisco Long MD PCP - General 02/23/17 05/15/22 Neil Ag MD PhD [address] [place] [id number] Radiation Oncologist Radiation Oncology 12/17/18 [place] [address] [place], [place] [address] Referring Physician General Surgery 12/17/18 [place] [address] [place], [place] [id number] Medical Oncologist/Senior Property Manager Medical Oncology 12/17/18 [place] [address] [place] [address] Consulting Physician Gastroenterology 01/07/20 documented as of this encounter
--- OUTSIDE RECORDS SUMMARY | 2024-11-16 15:32 | XMS_ITS | Encounter Summary ---
Author Organization [facility] Medical Group Address [address] [place] [address] Care Team Providers Care Media Center Assistant Name Role Phone Francisco Long MD Primary Care Provider [phone] Neil Ag MD PhD Unavailable [phone] Ita estrada MD Unavailable Caron Mohan MD Unavailable Pebbles Felton MD Unavailable [phone] Encounter Details Date Type Department Care Team (Late st Contact Info) Description 09/20/2021 Orders Only [place] [facility] [address] [facility] [address] [place] [address] Francisco Long MD [address] [place] [address] [address] [place] [address] Social History Tobacco Use Types [...] on file Legal Sex Female 12:21 PM RCP Gender Identity Not on file Sexual Orientation [...] 146(H) 65 - 99 mg/dL [facility] Comment: ? Fasting reference interval For someone without known diabetes, a glucose value >125 mg/dL indicates that they may have diabetes and this should be confirmed with a follow-up test. BUN 17 7 - 25 mg/dL [facility] Creatinine 0.85 0.60 - 0.93 mg/dL [facility] Comment: For patients >49 years of age, the reference limit for Creatinine is approximately 13% higher for people identified as -Vincentian. eGFR NON-AFR. MOLDOVAN 67 > OR = 60 mL/min/1 .73m2 [facility] EGFR 78 > OR = 60 mL/min/1 .73m2 [facility] BUN/creat ratio NOT APPLICABLE 6 - 22 (calc) [facility] Sodium 140 135 - 146 mmol/L [facility] Potassium, pl 4.5 3.5 - 5.3 mmol/L [facility] Chloride 104 98 - 110 mmol/L [facility] CO2 31 20 - 32 mmol/L [facility] Calcium 8.8 8.6 - 10.4 mg/dL [facility] 09/20/2021 8:15 AM CDT 09/20/2021 8:17 AM CDT Francisco Long MD LAB BLOOD ORDERABLES Final Res ult Performing Organization Address [facility] de Phone Number QUEST [facility] [address] [place] [address] * (ABNORMAL) Iron profile w/ IBC (09/20/2021 8:15 AM CDT) [facility] Iron 25(L) 45 - 160 mcg/dL [facility] TIBC 438 250 - 450 mcg/dL (calc) [facility] Iron saturation 6(L) 16 - 45 % (calc) [facility] 09/20/2021 8:15 AM CDT 09/20/2021 8:17 AM CDT Francisco Long MD LAB BLOOD ORDERABLES Final Res ult Performing Organization Address [facility] de Phone Number QUEST [facility] [address] [place] [address] * (ABNORMAL) CBC with auto differential (09/20/2021 8:15 AM CDT) [facility] WBC 5.6 3.8 - 10.8 Thousand/u [...] BLOOD ORDERABLES Final Res ult QUEST [facility] [address] [place] [address] * (ABNORMAL) Hemoglobin A1c (09/20/2021 8:15 AM CDT) Hgb A1C 6.7(H) <5.7 % of total Hgb [facility] 09/20/2021 8:15 AM CDT 09/20/2021 8:17 AM CDT Francisco Long MD LAB BLOOD ORDERABLES Final Res ult QUEST [facility] [address] [place] [address] documented in this encounter Visit Diagnoses Not on filedocumented in this encounter Care Teams Media Center Assistant Relationship Specialty Start Date End Date Francisco Long MD PCP - General 02/23/17 05/15/22 Neil Ag MD PhD 6 [place] [address] Radiation Oncologist Radiation Oncology 12/17/18 [place] [address] [address] [facility] [address] [place], [place] [id number] Referring Physician General Surgery 12/17/18 [place] [address] [address] [facility] [address] [place], [place] [phone] Medical Oncologist/Contact Acid Plant Operator Medical Oncology 12/17/18 [place] [address] [address] [facility] [address] [place] [address] Consulting Physician Gastroenterology 01/07/20 documented as of this encounter
--- OUTSIDE RECORDS SUMMARY | 2024-11-16 15:32 | XMS_ITS | Encounter Summary ---
Author Organization [facility] Medical Group Address [address] [facility] [address] [place] [address] Care Team Providers Care Laborer Cement Gun Placing Name Role Phone Francisco Long MD Primary Care Provider [phone] Neil Ag MD PhD Unavailable [phone] Ita estrada MD Unavailable Caron Mohan MD Unavailable Pebbles Felton MD Unavailable [phone] Encounter Details Date Type Department Care Team (Late st Contact Info) Description 09/28/2021 Orders Only [place] [facility] [address] [facility] [address] [place] [address] Francisco Long MD [address] [place] [address] [address] [place] [address] Essential hypertension (Primary Dx); Iron [...] file 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 Fasting reference interval For someone without known diabetes, a glucose value >125 mg/dL indicates that they may have diabetes and this should be confirmed with a follow-up test. BUN 17 7 - 25 mg/dL [facility] Creatinine 0.78 0.60 - 0.93 mg/dL [facility] Comment: For patients >49 years of age, the reference limit for Creatinine is approximately 13% higher for people identified as -Austrian. eGFR NON-AFR. HONDURAN 74 > OR = 60 mL/min/1 .73m2 [facility] EGFR 86 > OR = 60 mL/min/1 .73m2 [facility] BUN/creat ratio NOT APPLICABLE 6 - 22 (calc) [facility] Sodium 139 135 - 146 mmol/L [facility] Potassium, pl 4.9 3.5 - 5.3 mmol/L [facility] Chloride 102 98 - 110 mmol/L [facility] CO2 29 20 - 32 mmol/L [facility] Calcium 9.0 8.6 - 10.4 mg/dL [facility] Blood specimen (specimen) 03/14/2022 8:21 AM CDT 03/14/2022 8:22 AM CDT Francisco Long MD LAB BLOOD ORDERABLES Final Res ult Performing Organization Address [facility] de Phone Number QUEST [facility] [address] [facility] [place] [address] * (ABNORMAL) Iron profile w/ IBC (03/14/2022 8:21 AM CDT) [facility] Iron 56 45 - 160 mcg/dL [facility] TIBC 426 250 - 450 mcg/dL (calc) [facility] Iron saturation 13(L) 16 - 45 % (calc) [facility] Blood specimen (specimen) 03/14/2022 8:21 AM CDT 03/14/2022 8:22 AM CDT Francisco Long MD LAB BLOOD ORDERABLES Final Res ult Performing Organization Address [facility] de Phone Number QUEST [facility] [address] [place] [address] * (ABNORMAL) CBC with auto differential (03/14/2022 8:21 AM CDT) [facility] WBC 6.1 3.8 - 10.8 [...] BLOOD ORDERABLES Final Res ult QUEST [facility] [address] [facility] [place] [address] documented in this encounter Visit Diagnoses Diagnosis Essential hypertension- Primary Unspecified essential hypertension Iron deficiency anemia, unspecified iron deficiency anemia type Encounter for therapeutic drug monitoring documented in this encounter Care Teams Laborer Cement Gun Placing Relationship Specialty Start Date End Date Francisco Long MD PCP - General 02/23/17 05/15/22 Neil Ag MD PhD 6 [place] [address] Radiation Oncologist Radiation Oncology 12/17/18 [place] [address] [facility] [address] [facility] [place] [id number] Referring Physician General Surgery 12/17/18 [place] [address] [facility] [address] [facility] [place] [id number] Medical Oncologist/Pie Cutter Medical Oncology 12/17/18 [place] [address] [facility] [address] [place] [id number] Consulting Physician Gastroenterology 01/07/20 documented as of this encounter
--- OUTSIDE RECORDS SUMMARY | 2024-11-16 15:32 | XMS_ITS | Encounter Summary ---
Author Organization [facility] Healthcare Address [address] [place] [address] Care Team Providers Care Manager Pest Name Role Phone Francisco Long MD Primary Care Provider [phone] Neil Ag MD PhD Unavailable [phone] Ita Vazquez MD Unavailable Caron Mohan MD Unavailable Pebbles Felton MD Unavailable [phone] Reason for Visit * Reason Comments OP Infusion Venofer * Episode Based Medications (Routine) - Closed Specialty Diagnoses / Procedures Referred By Contac t Referred To Contact Diagnoses Iron deficiency anemia due to chronic blood loss Francisco Long MD [address] [facility] [address] [place] [address] Phone: tel: fax: [facility] [address] [place] [address] [place] [address] Phone: tel: Referral ID Status Reason Start Date Expiration Date Visits Re quested Visits Authorized [id number] Closed 01/04/2021 02/03/2022 1 1 Encounter Details Date Type Department Care Team (Late st Contact Info) Description 02/04/2021 10:30 AM TARGET NETWORK ANALYST Infusion [facility] [address] [facility] [address] [place] [address] Francisco Long MD [address] [place] [address] [address] [place] [address] Iron deficiency anemia due to chronic blood [...] on file Legal Sex Female 12:21 PM TARGET NETWORK ANALYST Gender Identity Not on file Sexual Orientation Not on file documented as of this encounter Last Filed Vital Signs Vital Sign Reading Time Taken Comments Blood Pressure 158/90 02/04/2021 10:34 AM TARGET NETWORK ANALYST Pulse 71 02/04/2021 10:34 AM TARGET NETWORK ANALYST Temperature 36.3 ??C (97.3 ??F) 02/04/2021 10:[address] Respiratory Rate 20 02/04/2021 10:34 AM TARGET NETWORK ANALYST Oxygen Saturation 97% 02/04/2021 10:34 AM TARGET NETWORK ANALYST Inhaled Oxygen Concentration - - Weight - [...] the patient was given her discharge instructions. ET NETWORK ANALYST documented in this encounter Plan of [...] blood loss New Bag 02/04/2021 11:15 AM TARGET NETWORK ANALYST 300 mg 176.7 mL/hr documented in this encounter Orders Medications Ordered That Álvaro ht Not Have Been Administered Count Last Ordered Date First Ordered Date iron sucrose (VENOFER) 300 m g in sodium chloride 0.9% 250 mL IVPB 1 02/04/2021 sodium chloride 0.9% flush 10 mL 1 02/05/20 21 documented in this encounter Care Teams Manager Pest Relationship Specialty Start Date End Date Francisco Long MD PCP - General 02/23/17 05/15/22 Neil Ag MD PhD 6 [place] [address] Radiation Oncologist Radiation Oncology 12/17/18 [place] [address] [address] [facility] 120 [place] [address] Referring Physician General Surgery 12/17/18 [place] [address] [facility] [address] [place] [address] Medical Oncologist/Counter Waiter Medical Oncology 12/17/18 [place] [address] [facility] [address] [place] [address] Consulting Physician Gastroenterology 01/07/20 documented as of this encounter
--- OUTSIDE RECORDS SUMMARY | 2024-11-16 15:32 | XMS_ITS | Encounter Summary ---
Author Organization [facility] Address [address] [facility] [address] [place] [address] Care Team Providers Care Die Set Up Worker Name Role Phone Francisco Long MD Primary Care Provider [phone] Neil Ag MD PhD Unavailable [phone] Ita estrada MD Unavailable Caron Mohan MD Unavailable Pebbles Felton MD Unavailable [phone] Encounter Details Date Type Department Care Team (Late st Contact Info) Description 03/09/2021 Telephone [place] [facility] [address] [facility] [address] [place] [address] Francisco Long MD [address] [place] [address] [address] [place] [address] Social History Tobacco Use Types [...] file 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 Gender Identity Not on file Sexual [...] on filedocumented in this encounter Care Teams Die Set Up Worker Relationship Specialty Start Date End Date Francisco Long MD PCP - General 02/23/17 05/15/22 Neil Ag MD PhD 6 [place] [address] Radiation Oncologist Radiation Oncology 12/17/18 [place] [address] [address] [facility] 120 [place] [address] Referring Physician General Surgery 12/17/18 [place] [address] [address] [facility] 120 [place] [address] Medical Oncologist/Fence Erector Supervisor Medical Oncology 12/17/18 [place] [address] [facility] [address] [place] [address] Consulting Physician Gastroenterology 01/07/20 documented as of this encounter
--- OUTSIDE RECORDS SUMMARY | 2024-11-16 15:32 | XMS_ITS | Encounter Summary ---
Author Organization [facility] Address [address] [facility] [address] [place] [address] Care Team Providers Care Pay Agent Name Role Phone Francisco Long MD Primary Care Provider [phone] Neil Ag MD PhD Unavailable [phone] Ita Vazquez MD Unavailable Caron Mohan MD Unavailable Pebbles Felton MD Unavailable [phone] Reason for Visit * Reason Comments Medicare Annual Wellness [place]undo [place] [facility] [place] Encounter Details Date Type Department Care Team (Late st Contact Info) Description 09/28/2021 9:00 AM CDT Office Visit [place] [facility] 2 [facility] [address] [place] [address] Francisco Long MD [address] [place] [address] [address] [place] [address] Medicare annual wellness visit, subsequent (Primary Dx); [...] on file 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 AGENT Gender Identity Not on file Sexual [...] on regular basis as well as 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 Dawna Murray on a regular basisas well [...] Douglas for 40 years 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 children her is [...] intake documented in this encounter Care Teams Pay Agent Relationship Specialty Start Date End Date Francisco Long MD PCP - General 02/23/17 05/15/22 Neil Ag MD PhD 6 [place] [address] Radiation Oncologist Radiation Oncology 12/17/18 [place] [address] [facility] 120 [place] [address] Referring Physician General Surgery 12/17/18 [place] [address] [facility] [address] [place] [address] Medical Oncologist/Stove Bottom Worker Medical Oncology 12/17/18 [place] [address] [facility] [address] [place] [address] Consulting Physician Gastroenterology 01/07/20 documented as of this encounter
--- OUTSIDE RECORDS SUMMARY | 2024-11-16 15:32 | XMS_ITS | Encounter Summary ---
Author Organization [facility] Medical Group Address [address] [facility] [address] [place] [address] Care Team Providers Care Upholsterer Apprentice Name Role Phone Francisco Long MD Primary Care Provider [phone] Neil Ag MD PhD Unavailable [phone] Ita estrada MD Unavailable Caron Mohan MD Unavailable Pebbles Felton MD Unavailable [phone] Encounter Details Date Type Department Care Team (Late st Contact Info) Description 06/29/2021 Telephone [place] [facility] 2 [facility] [address] [place] [address] Francisco Long MD [address] [place] [address] [address] [place] [address] Social History Tobacco Use Types [...] on file 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 [address] [place] [id number] Referring Physician General Surgery 12/17/18 [place] [address] [facility] [address] [place] [id number] Medical Oncologist/Quiller Operator Medical Oncology 12/17/18 [place] [address] [address] [facility] [address] [place] [id number] Consulting Physician Gastroenterology 01/07/20 documented as of this encounter
--- OUTSIDE RECORDS SUMMARY | 2024-11-16 15:32 | XMS_ITS | Encounter Summary ---
Author Organization [facility] Medical Group Address [address] [facility] [address] [place] [address] Care Team Providers Care Prisoner Classification Interviewer Name Role Phone Francisco Long MD Primary Care Provider Neil Ag MD PhD Unavailable Ita estrada MD Unavailable Caron Mohan MD Unavailable Pebbles Felton MD Unavailable [phone] Yamileth Meade MA Unavailable [phone] Encounter Details Date Type Department Care Team (Late st Contact Info) Description 04/26/2021 Telephone [place] [facility] 2 [facility] [address] [place] [address] Francisco Long MD [address] [place] [address] 220 [place], [place] [address] Social History Tobacco Use Types Packs/Day Years [...] on file 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 Gender Identity Not on file Sexual [...] on filedocumented in this encounter Care Teams Prisoner Classification Interviewer Relationship Specialty Start Date End Date Francisco Long MD PCP - General 02/23/17 05/15/22 Neil Ag MD PhD 6 [place] [address] Radiation Oncologist Radiation Oncology 12/17/18 [place] [address] [address] [place] [address] Referring Physician General Surgery 12/17/18 [place] [address] [address] [place] [address] Medical Oncologist/Marina Sales And Service Supervisor Medical Oncology 12/17/18 [place] [address] [address] [facility] 120 [place] [address] Consulting Physician Gastroenterology 01/07/20 Yamileth Meade MA [address] [place] [address] [address] [place] [address] ACO Care Planer Off Bearer 04/26/21 04/26/21 documented as of this encounter
--- OUTSIDE RECORDS SUMMARY | 2024-11-16 15:32 | XMS_ITS | Encounter Summary ---
Author Organization [facility] Medical Group Address [address] [facility] [address] [place] [address] Care Team Providers Care Receivable Clerk Name Role Phone Francisco Long MD Primary Care Provider [phone] Neil Ag MD PhD Unavailable [phone] Ita estrada MD Unavailable Caron Mohan MD Unavailable Pebbles Felton MD Unavailable [phone] Encounter Details Date Type Department Care Team (Late st Contact Info) Description 03/11/2021 Orders Only [place] [facility] 2 [facility] [address] [place] [address] Larry Wetzel PA 2 [facility] [address] [place] [address] Hiatal hernia (Primary Dx) Social [...] on file 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 Gender Identity Not on file Sexual Orientation Not on file documented as of this encounter Plan of Treatment Not on file documented as of this encounter Visit Diagnoses Diagnosis Hiatal hernia- Primary Diaphragmatic hernia without mention of obstruction or gangrene documented in this encounter Care Teams Receivable Clerk Relationship Specialty Start Date End Date Francisco Long MD PCP - General 02/23/17 05/15/22 Neil Ag MD PhD 6 [place] [address] Radiation Oncologist Radiation Oncology 12/17/18 [place] [address] [facility] [address] [place], [place] [address] Referring Physician General Surgery 12/17/18 [place] [address] [facility] [address] [place], [place] [address] Medical Oncologist/Art Model Medical Oncology 12/17/18 [place] [address] [facility] [address] [place], [place] [phone] Consulting Physician Gastroenterology 01/07/20 documented as of this encounter
--- OUTSIDE RECORDS SUMMARY | 2024-11-16 15:32 | XMS_ITS | Encounter Summary ---
Author Organization [facility] Healthcare Address [address] [place] [address] Care Team Providers Care Application Infrastructure Engineer Name Role Phone Francisco Long MD Primary Care Provider [phone] Neil Ag MD PhD Unavailable [phone] Ita Vazquez MD Unavailable Caron Mohan MD Unavailable Pebbles Felton MD Unavailable [phone] Mariangel Quiñonez MD Primary Care Provide r Encounter Details Date Type Department Care Team (Late st Contact Info) Description 06/27/2021 Telephone [facility] [address] [place] [address] Beverly Sosa, RT Social History Tobacco Use [...] on file 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 12/17/2021 03/02/2022 04/16/2022 3:05 AM C DT COVID: Suspected 12/08/2022 12/08/2022 12/08/2022 11:08 AM SALOONKEEPER COVID19 12/08/2022 12/08/2022 12/18/2022 3:05 AM SALOONKEEPER COVID: Recovered Comment:Added based on recent COVID infection. 12/18/2022 02/11/2023 03/18/2023 3:06 AM C DT documented as of this encounter Care Teams Application Infrastructure Engineer Relationship Specialty Start Date End Date Francisco Long MD PCP - General 02/23/17 05/15/22 Mariangel Quiñonez MD [address] [address] PCP - General Family Medicine 05/16/22 Neil Ag MD PhD [address] [place] [address] Radiation Oncologist Radiation Oncology 12/17/18 [place] [address] [facility] [address] [place] [address] Referring Physician General Surgery 12/17/18 [place] [address] [facility] [address] [place] [address] Medical Oncologist/Campaign Coordinator Medical Oncology 12/17/18 [place] [address] [facility] [address] [place] [address] Consulting Physician Gastroenterology 01/07/20 documented as of this encounter
--- OUTSIDE RECORDS SUMMARY | 2024-11-16 15:32 | XMS_ITS | Encounter Summary ---
Author Organization [facility] Medical Group Address [address] [facility] [address] [place] [address] Care Team Providers Care Safety Grooving Machine Operator Name Role Phone Francisco Long MD Primary Care Provider [phone] Neil Ag MD PhD Unavailable [phone] Ita estrada MD Unavailable Caron Mohan MD Unavailable Pebbles Felton MD Unavailable [phone] Encounter Details Date Type Department Care Team (Late st Contact Info) Description 03/22/2021 Telephone [facility] [address] [facility] [address] [place] [address] Francisco Long MD [address] [place] [address] [address] [place] [address] Social History Tobacco Use Types [...] on file 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 Gender Identity Not on file Sexual Orientation [...] filedocumented in this encounter Care Teams Safety Grooving Machine Operator Relationship Specialty Start Date End Date Francisco Long MD PCP - General 02/23/17 05/15/22 Neil Ag MD PhD [address] [place] [address] Radiation Oncologist Radiation Oncology 12/17/18 [place] [address] [facility] [address] [place] [address] Referring Physician General Surgery 12/17/18 [place] [address] [facility] [address] [place], [place] [id number] Medical Oncologist/Powerhouse Mechanic Helper Medical Oncology 12/17/18 [place] [address] [facility] [address] [place] [address] Consulting Physician Gastroenterology 01/07/20 documented as of this encounter
--- OUTSIDE RECORDS SUMMARY | 2024-11-16 15:32 | XMS_ITS | Encounter Summary ---
Author Organization [facility] Medical Group Address [address] [facility] [address] [place] [address] Care Team Providers Care Society Reporter Name Role Phone Francisco Long MD Primary Care Provider [phone] Neil Ag MD PhD Unavailable [phone] Ita estrada MD Unavailable Caron Mohan MD Unavailable Pebbles Felton MD Unavailable [phone] Encounter Details Date Type Department Care Team (Late st Contact Info) Description 03/08/2021 Telephone [facility] 2 [facility] [place] [facility] [address] [place] [address] Francisco Long MD [address] [place] [address] [address] [place] [address] Social History Tobacco Use Types [...] file 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 Gender Identity Not on file Sexual Orientation [...] on filedocumented in this encounter Care Teams Society Reporter Relationship Specialty Start Date End Date Francisco Long MD PCP - General 02/23/17 05/15/22 Neil Ag MD PhD 6 [place] [address] Radiation Oncologist Radiation Oncology 12/17/18 [place] [address] [facility] [address] [place], [place] [address] Referring Physician General Surgery 12/17/18 [place] [address] [facility] [address] [place], [place] [address] Medical Oncologist/Records Administrator Medical Oncology 12/17/18 [place] [address] [facility] 120 [place] [address] Consulting Physician Gastroenterology 01/07/20 documented as of this encounter
--- OUTSIDE RECORDS SUMMARY | 2024-11-16 15:32 | XMS_ITS | Encounter Summary ---
Author Organization [facility] Healthcare Address [address] [place] [address] Care Team Providers Care Administrative Judge Name Role Phone Francisco Long MD Primary Care Provider Neil Ag MD PhD Unavailable Ita estrada MD Unavailable Caron Mohan MD Unavailable Pebbles Felton MD Unavailable [phone] Reason for Visit * Reason Comments Stroke Encounter Details Date Type Department Care Team (Late st Contact Info) Description 04/24/2021 9:05 AM CDT - 04/24/2021 10:29 AM CDT Emergency [facility] Emergency Department [address] [place] [address] Chitra Mike MD [address] [place] [address] Left-sided Shi's palsy (Primary Dx) Discharge Disposition: [...] on file 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 * Shi Palsy (AfterCare(R) Instructions(ER/ED)) (Sammarinese) documented in this encounter Medications at Time [...] daily 30 tablet 11 03/25/2021 4 white petrolatum-x ray examiner of aircraft al oil (white petrolatum-x ray examiner of aircraft al oiL) ointment Apply 1 application to [...] went to breakfast. Pt denies weakness, confusion. Wire Photo Operator News equal and strong. * Chitra Mike MD [...] mammogram, encounter for 1945 ??? Uterine cancer ([facility]) 04/2018 Past Surgical History: Procedure [...] (195 lb) SpO2 100% BMI 30.54 kg/m?? [facility] ED Course as of Apr 24 [...] CDT) 04/24/2021 9:24 AM CDT Narrative [facility] - 04/26/2021 12:49 PM CDT Vent Rate: 75 bpm RR Interval: 797 msec IN Interval: 193 msec QRS Duration: 98 msec QT Interval: 391 msec QTC Interval: 420 msec P-R-T Sarver: 65 - -53 - 66 degrees SINUS RHYTHM LEFT ANTERIOR FASCICULAR BLOCK ??[QRS AXIS <= -45, QR IN I, RS IN II] ABNORMAL ECG Compared to 01/05/2020 left anterior fascicular block is new Electronically Signed By: Dr Sudarshan Cain us Chitra Mike MD ECG ORDERABLES Edited Res ult - Final [facility] * CT Stroke Head WO Contrast (04/24/2021 [...] AM T: ??04/24/2021 9:26 AM Report ID: [id number] Reading Location: ??[id number] Procedure Note Caesar Johnston, DO - 04/24/2021 [...] signed by Caesar GOODMAN: MAXINE Report ID: [id number] Reading Location: [id number] us Chitra Mike MD IMG CT PROCEDURES Final Re sult * eGFR (04/24/2021 9:17 AM CDT) Pathologist [facility] eGFR 67 mL/min/1.7 3 m2 [facility] ([place]) Comment: Interpretive Data Reference Interval Normal ?>/= [...] MD LAB BLOOD ORDERABLES Final Result [facility] ([place]) 1 [facility] Department [place] [address] * (ABNORMAL) Differential, auto (04/24/2021 9:17 AM [...] BLOOD ORDERABLES Final Result Performing Organization Address [facility] Co de Phone Number [facility]AN [facility] ([place]) 1 [place] [address] * Troponin T high-sensitivity series (baseline, 2hr, 4hr, 6hr) (04/24/2021 9:17 AM CDT) Trop T hs <6 <=14 ng/L [facility] ([place]) Comment: Interpretive Data For further hscTnT resources including the diagnostic algorithm and an aid in interpretation, copy and paste this link: https://nrl.testcatalog.org/show/hsTrop Current Interpretive Data last revised 2020. Blood specimen (specimen) 04/24/2021 9:17 AM CDT 04/24/2021 9:20 AM CDT Chitra Mike MD LAB BLOOD ORDERABLES Final Result Performing Organization Address [facility] Co de Phone Number [facility] ([place]) 1 [facility] [address] [place] [address] * aPTT (04/24/2021 9:17 AM CDT) aPTT 33 27 - 37 sec [facility] ([place]) Comment: Interpretive data Heparin therapeutic range: 60-94 seconds Range based on correlation with therapeutic heparin activity range of 0.3-0.7 units/ml. Current interpretive data was last revised on 2019. Blood specimen (specimen) (Blood, Venous) 04/24/2021 9:17 AM CDT 04/24/2021 9:20 AM CDT Narrative [facility] ([place]) - 04/24/2021 9:32 AM CDT Potential stroke patient. Chitra Mike MD LAB BLOOD ORDERABLES Final Result Performing Organization Address City/[facility]/ZIP Co de Phone Number [facility] ([place]) 1 [facility] [place] [address] * Protime-INR (04/24/2021 9:17 AM CDT) Pathologist [facility] PT 11.9 9.5 - 13.6 sec [facility] ([place]) INR 1.1 0.9 - 1.2 [facility] ([place]) Comment: Interpretive data Oral anticoagulant therapeutic ranges: Venous thromboembolism prophylaxis or treatment: 2.0-3.0 CARDIOLOGY Standard range: 2.0-3.0 High-intensity range: 2.5-3.5 Refer to indication-specific guidelines for appropriate target ranges for prosthetic heart valve replacement. Current interpretive data was last revised on 2019. Blood specimen (specimen) (Blood, Venous) 04/24/2021 9:17 AM CDT 04/24/2021 9:20 AM CDT Narrative [facility] ([place] - 04/24/2021 9:29 AM CDT Potential stroke patient. us Chitra Mike MD LAB BLOOD ORDERABLES Final Result Performing Organization Address City/[facility] Co de Phone Number [facility] ([place]) 1 [facility] Department of [address] [place] [address] * (ABNORMAL) CBC with auto differential (04/24/2021 9:17 AM CDT) WBC 4.9 3.8 - 9.9 K/cumm [facility] ([place]) Hgb 13.4 11.9 - 15.5 g/dL [facility] ([place]) Hct 42.9 35.6 - 45.5 % [facility] ([place]) Plt 172 150 - 400 K/cumm [facility] ([place]) MPV 8.8(L) 9.1 - 12.3 fL [facility] ([place]) RBC 5.37(H) 3.90 - 5.20 M/cumm [facility] ([place]) MCV 79.9(L) 81.3 - 96.4 [...] ORDERABLES Final Result [facility] ([place]) 1 [facility] Department [place] [address] * Basic metabolic panel (04/24/2021 9:17 AM CDT) Sodium 137 135 - 145 mmol/L [facility] ([place]) Potassium, pl 4.8 3.3 - 4.9 mmol/L [facility] ([place]) Chloride 100 97 - 110 mmol/L [facility] ([place]) CO2 28 22 - 32 mmol/L [facility] ([place]) Anion gap 9 2 - 15 mmol/L [facility] ([place]) BUN 17 8 - 25 mg/dL [facility] ([place]) Creatinine 0.86 0.60 - 1.10 [...] 2017. Calcium 9.5 8.5 - 10.3 mg/dL [facility] Blood specimen (specimen) 04/24/2021 9:17 AM CDT 04/24/2021 9:20 AM CDT Narrative [facility] ([place]) - 04/24/2021 9:41 AM CDT Potential Stroke patient. us Chitra Mike MD LAB BLOOD ORDERABLES Final Result [facility] ([place]) 1 [facility] [place] [address] * (ABNORMAL) POCT glucose (04/24/2021 9:07 AM CDT) [facility] Glucose, POC 172(H) 71 - 98 mg/dL [facility] ([place]) Blood specimen (specimen) 04/24/2021 9:07 AM CDT 04/24/2021 9:07 AM CDT us Notinfile Unknown LAB POCT ORDERABLES - DEVICE F inal Result [facility] ([place]) 1 [facility] [place] [address] documented in this encounter Visit Diagnoses Diagnosis [...] 04/24/2021 documented in this encounter Care Teams Administrative Judge Relationship Specialty Start Date End Date Francisco Long MD PCP - General 02/23/17 05/15/22 Neil Ag MD PhD [address] [place] [address] Radiation Oncologist Radiation Oncology 12/17/18 [place] [address] [facility] [address] [place], [place] [address] Referring Physician General Surgery 12/17/18 [place] [address] [facility] [address] [place] [address] Medical Oncologist/Data Librarian Medical Oncology 12/17/18 [place] [address] [facility] [address] [place] [address] Consulting Physician Gastroenterology 01/07/20 documented as of this encounter
--- OUTSIDE RECORDS SUMMARY | 2024-11-16 15:32 | XMS_ITS | Encounter Summary ---
Author Organization [facility] Healthcare Address [address] [place] [address] Care Team Providers Care Violent Crimes Detective Name Role Phone Francisco Long MD Primary Care Provider [phone] Neil Ag MD PhD Unavailable [phone] Ita Vazquez MD Unavailable Caron Mohan MD Unavailable Pebbles Felton MD Unavailable [phone] Reason for Visit * Reason Comments OP Infusion Here for #2 of 2 ovf Venofer. * Episode Based Medications (Routine) - Closed Specialty Diagnoses / Procedures Referred By Contac t Referred To Contact Diagnoses Iron deficiency anemia due to chronic blood loss Francisco Long MD [address] [place] [address] Phone: tel: fax: [facility] [address] [place] [address] [place] [address] Phone: tel: Referral ID Status Reason Start Date Expiration Date Visits Re quested Visits Authorized [id number] Closed 01/04/2021 02/03/2022 1 1 Encounter Details Date Type Department Care Team (Late st Contact Info) Description 01/28/2021 10:30 AM RESERVATIONIST Infusion [facility] Infusion [address] [place] [address] Francisco Long MD [address] [facility] [address] [place], [place] [address] Iron deficiency anemia due to chronic blood [...] on file Legal Sex Female 12:21 PM RESERVATIONIST Gender Identity Not on file Sexual Orientation Not on file documented as of this encounter Last Filed Vital Signs Vital Sign Reading Time Taken Comments Blood Pressure 169/72 01/28/2021 10:34 AM RESERVATIONIST Pulse 66 01/28/2021 10:34 AM RESERVATIONIST Temperature 30.7 ??C (87.3 ??F) 01/28/2021 10:[address] Respiratory Rate 20 01/28/2021 10:34 AM RESERVATIONIST Oxygen Saturation 98% 01/28/2021 10:34 AM RESERVATIONIST Inhaled Oxygen Concentration - - Weight - - Height - - Body Mass Index - - documented in this encounter Discharge Disposition Disposition Code Departure Means Destination Discharge to home or self care documented in this encounter Nursing Notes * Rivka Galan RN - 01/28/2021 10:30 AM CST Patient here for dose #2 fo 3 of Iron Sucrose, Venofer. Assessment completed. IV established in herright hand per protocol. A brisk blood return was obtained. A sterile Tegaderm applied over site. This is a very small vein, but it is patent and gives a good blood return. Iron Sucrose given as per MA. Patient tolerated her infusion without acute, ill effects. Her infusion concluded. IV site was di scontinued and the angiocatheter was removed. Light pressure was held to site with a cotton ball. Site wrapped with Coband. Patient given a copy of her AVS, and she left in stable condition, in the ambulatory mode. RVATIONIST documented in this encounter Plan of Treatment [...] mL/hr, Administer over 90 Minutes, Once, On Sun01/28/21 at 1130, For 1 doseIndications:Iron deficiency anemia due to chronic blood loss New Bag 01/28/2021 10:47 AM RESERVATIONIST 300 mg 176.7 mL/hr Right Hand documented in this encounter Orders Medications Ordered That Álvaro ht Not Have Been Administered Count Last Ordered Date First Ordered Date iron sucrose (VENOFER) 300 m g in sodium chloride 0.9% 250 mL IVPB 1 01/28/2021 sodium chloride 0.9% flush 10 mL 1 01/29/20 21 documented in this encounter Care Teams Violent Crimes Detective Relationship Specialty Start Date End Date Francisco Long MD PCP - General 02/23/17 05/15/22 Neil Ag MD PhD [address] [place] [address] Radiation Oncologist Radiation Oncology 12/17/18 [place] [address] [facility] [address] [place] [address] Referring Physician General Surgery 12/17/18 [place] [address] [facility] [address] [place] [id number] Medical Oncologist/[place] Medical Oncology 12/17/18 [place] [address] [facility] [address] [place] [address] Consulting Physician Gastroenterology 01/07/20 documented as of this encounter
--- OUTSIDE RECORDS SUMMARY | 2024-11-16 15:32 | XMS_ITS | Encounter Summary ---
Author Organization [facility] Medical Group Address [address] [facility] [address] [place] [address] Care Team Providers Care American Sign Language Interpreter Name Role Phone Francisco Long MD Primary Care Provider Neil Ag MD PhD Unavailable [phone] Ita Vazquez MD Unavailable Caron Mohan MD Unavailable Pebbles Felton MD Unavailable [phone] Reason for Visit * Reason Comments COVID-19 EVALUATION Sx onset Monday 12/04, c/o cough, sob. Pt denies any hx of covid virus, fully vaccinated and boosted. Pt states her is covid positive. 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[employer] Gender Identity Not on file Sexual Orientation Not on file documented as of this encounter Last Filed Vital Signs Vital Sign Reading Time Taken Comments Blood Pressure 126/76 12/07/2021 1:14 PM [employer] Pulse 92 12/07/2021 1:14 PM [employer] Temperature 36.9 ??C (98.4 ??F) 12/07/2021 1:14 PM CS T Respiratory Rate 25 12/07/2021 1:14 PM [employer] Oxygen Saturation 96% 12/07/2021 1:14 PM [employer] Inhaled Oxygen Concentration - - Weight 85.3 kg (188 lb) 12/07/2021 1:14 PM [employer] Height 170.2 cm (5' 7 ) 12/07/2021 1:14 PM [employer] Body Mass Index 29.44 12/07/2021 1:14 PM [employer] documented in this encounter Patient Instructions * Patient Instructions* Paula Mitchell NP - 12/07/2021 1:15 PM [employer] our rapid COVID-19 test was positive today [...] yourself. Get rest and stay hydrated. Take stya-xpl-riodkpc medicines to help you feel better. ??? [...] and need to call 911, notify the pitting machine operator that you have or think you [...] with someone who is sick visit https://www .cdc.gov/coronavirus/2019-ncov/hnkun-fzlz-stfdav/clarmg-nh-eviow-quarters.html ??? For more information on COVID-19 and pets visit https://www.cdc.gov/coronavirus/2019-ncov/faq.html Get Tested ??? If you have symptoms of COVID-19, get tested. While waiting for test results, you stay away from others, including staying apart from those living in your household. ??? Self-tests are one of several options for testing for the virus that causes COVID-19 and may bemore convenient than laboratory-based tests and ifowb-ba-djiv tests. Ask your healthcare provider or your local health department if you need help interpreting your test results. ??? You can visit your [facility], [facility], [facility], and [facility]???s website to look for the [...] clean your hands with an alcohol-based hand preassembler and inspector that contains at least 60% alcohol. Clean your hands often ??? Wash your hands often with soap and water for at least 20 seconds. This is especially importantafter blowing your nose, coughing, or sneezing; going to the bathroom; and before eating or preparing food. ??? Use hand preassembler and inspector if soap and water are not available. Use an alcohol-based hand preassembler and inspector with at least 60% alcohol, covering all [...] and water or put them in the civil engineering professional. Clean all ???high-touch?? surfaces everyday. High-touch surfaces [...] about how COVID-19 vaccines work at https://www.cdc.gov/coronavirus/2019-ncov/vaccines/differe nt-vaccines/qrt-iezh-nyjf.html Search N42.gov, text your zip code [place] [address], or call to find COVID-19 vaccine locations near you. The above information is from the CDC website on Nov 21, 2021. Page was last updated: Nov 22, 2021. Additional information and resources about COVID-19 symptoms, testing, self- isolation, how to prevent spread, vaccinations and more are available at: www.cdc.gov/coronavirus [employer] documented in this encounter Progress Notes * [...] (40 mg total) by mouth daily 30 [id number] ??? rosuvastatin (CRESTOR) 5 mg tablet Take [...] ear normal. Nose: Nose normal. Mouth/Throat: Lips: [place]. Mouth: Mucous membranes are moist. Pharynx: Oropharynx [...] Question: ? Answer: No Paula Mitchell NP [employer] documented in this encounter Plan of Treatment Not on file documented as of this encounter Procedures Procedure Name Priority Date/Time Associated Diagnosis Comments POC INFLUENZA A/B, COVID-19 ANTIGEN Routine 12/07/2021 1:26 PM [employer] COVID-19 virus infection documented in this encounter Results * (ABNORMAL) POC Influenza A/B, COVID-19 antigen (12/07/2021 1:26 PM [employer]) Pathologist [facility] Influenza A Ag, POC Negative [facility] Influenza B Ag, POC Negative [facility] COVID-19 Ag POC Positive(A) Presumptive Negative, Invalid [facility] Nasal 12/07/2021 1:26 PM [employer] Paula Mitchell MUSIC ARRANGER POINT OF CARE TEST ORDERABLES Final Result [facility] [address] [place] [address] [place] [address] documented in this encounter Visit Diagnoses Diagnosis COVID-19 virus infection- Primary documented in this encounter Additional Health Concerns Infection Onset Date Last Indicated Resolved Time COVID: Suspected 12/07/2021 12/07/2021 12/07/2021 1:26 PM [employer] COVID19 12/07/2021 12/07/2021 12/17/2021 3:05 AM [employer] documented as of this encounter Care Teams American Sign Language Interpreter Relationship Specialty Start Date End Date Francisco Long MD PCP - General 02/23/17 05/15/22 Neil Ag MD PhD [address] [place] [address] Radiation Oncologist Radiation Oncology 12/17/18 [place] [address] [facility] [address] [place] [address] Referring Physician General Surgery 12/17/18 [place] [address] [address] Medical Oncologist/Rn Telemetry Medical Oncology 12/17/18 [place] [address] [address] Consulting Physician Gastroenterology 01/07/20 documented as of this encounter
--- OUTSIDE RECORDS SUMMARY | 2024-11-16 15:32 | XMS_ITS | Encounter Summary ---
Author Organization [facility] Address [address] [place] [address] Care Team Providers Care Cognos Name Role Phone Francisco oLng MD Primary Care Provider Neil Ag MD PhD Unavailable [phone] Ita estrada MD Unavailable Caron Mohan MD Unavailable Pebbles Felton MD Unavailable [phone] Encounter Details Date Type Department Care Team (Late st Contact Info) Description 05/26/2021 Orders Only [facility] 2 [facility] [address] [place] [address] Francisco Long MD [address] [place] [address] [address] [place] [address] Type 2 diabetes mellitus with [...] on file 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 Fasting reference interval For someone without known diabetes, a glucose value >125 mg/dL indicates that they may have diabetes and this should be confirmed with a follow-up test. BUN 19 7 - 25 mg/dL [facility] Creatinine 0.81 0.60 - 0.93 mg/dL [facility] Comment: For patients >49 years of age, the reference limit for Creatinine is approximately 13% higher for people identified as -Panamanian. eGFR NON-AFR. THAI 72 > OR = 60 mL/min/1 .73m2 [facility] EGFR 83 > OR = 60 mL/min/1 .73m2 [facility] BUN/creat ratio NOT APPLICABLE 6 - 22 (calc) [facility] Sodium 141 135 - 146 mmol/L [facility] Potassium, pl 4.4 3.5 - 5.3 mmol/L [facility] Chloride 103 98 - 110 mmol/L [facility] CO2 28 20 - 32 mmol/L [facility] Calcium 9.3 8.6 - 10.4 mg/dL [facility] Protein, sr 6.1 6.1 - 8.1 g/dL [facility] Albumin 4.0 3.6 - 5.1 g/dL [facility] GLOBULIN 2.1 1.9 - 3.7 g/dL (calc) [facility] Alb/glob ratio 1.9 1.0 - 2.5 (calc) [facility] Bilirubin, total 0.5 0.2 - 1.2 mg/dL [facility] Alk phos 69 37 - 153 U/L [facility] AST 15 10 - 35 U/L [facility] ALT (SGPT) 13 6 - 29 U/L [facility] 06/28/2021 8:29 AM CDT 06/28/2021 8:30 AM CDT Narrative [facility] - 06/29/2021 1:44 AM CDT FASTING:YES FASTING: YES us Francisco Long MD LAB BLOOD ORDERABLES Final Res ult [facility] [address] [place] [address] * Lipid panel with reflex to direct [...] LDL-C. Harry SS et al. RANDALL. 2013;310(19): 2002-9545 (http://education.Newforma/faq/OQE408) Chol/HDL ratio 2.6 <5.0 (calc) [facility] Non-HDL, (LDL+VLDL) 105 <130 mg/dL (calc) [facility] Comment: For patients with diabetes plus [...] [facility] Co de Phone Number [facility] [address] [place] [address] * Vitamin D 25 hydroxy (06/28/2021 8:29 AM CDT) [facility] Vitamin D 25-OH 34 30 - 100 ng/mL [facility] Comment: Vitamin D Status ? 25-OH Vitamin D: Deficiency: ?<20 ng/mL Insufficiency: ? 20 - 29 ng/mL Optimal: ? > or = 30 ng/mL For 25-OH Vitamin D testing on patients on D2-supplementation and patients for whom quantitation of D2 and D3 fractions is required, the QuestAssure[facility](TM) 25-OH VIT D, (D2,D3), LC/MS/MS is recommended: order code 35625 (patients >2yrs). See Note 1 Note 1 For additional information, please refer to http://education.Newforma/faq/IOE339 (This link is being provided for informational/ educational purposes only.) 06/28/2021 8:29 AM CDT 06/28/2021 8:30 AM CDT Narrative [facility] - 06/29/2021 1:44 AM CDT FASTING:YES FASTING: YES Francisco Long MD LAB BLOOD ORDERABLES Final Res ult Performing Organization Address [facility] de Phone Number [facility] [address] [place] [address] * (ABNORMAL) Iron profile w/ IBC (06/28/2021 8:29 AM CDT) [facility] Iron 45 45 - 160 mcg/dL [facility] TIBC 403 250 - 450 mcg/dL (calc) [facility] Iron saturation 11(L) 16 - 45 % (calc) [facility] Blood specimen (specimen) 06/28/2021 8:29 AM CDT 06/28/2021 8:30 AM CDT Narrative [facility] - 06/29/2021 1:44 AM CDT FASTING:YES FASTING: YES Francisco Lnog MD LAB BLOOD ORDERABLES Final Res ult Performing Organization Address [facility] de Phone Number [facility] [address] [place] [address] * (ABNORMAL) CBC with auto differential (06/28/2021 8:29 AM CDT) [facility] WBC 6.3 3.8 - 10.8 Thousand/u [...] BLOOD ORDERABLES Final Res ult [facility] [address] [place] [address] * (ABNORMAL) Hemoglobin A1c (06/28/2021 8:29 AM CDT) Hgb A1C 6.7(H) <5.7 % of total Hgb [facility] Blood specimen (specimen) 06/28/2021 8:29 AM CDT 06/28/2021 8:30 AM CDT Narrative [facility] - 06/29/2021 1:44 AM CDT FASTING:YES FASTING: YES Francisco Long MD LAB BLOOD ORDERABLES Final Res ult Performing Organization Address [facility] Co de Phone Number [facility] [address] [address] * Albumin Creatinine Ratio, Urine (05/26/2021 11:43 [...] ORDERABLES Final Res ult Performing Organization Address [facility] de Phone Number [facility] [address] [place] [address] * (ABNORMAL) Hemoglobin A1c (05/26/2021 11:43 AM CDT) Hgb A1C 7.0(H) <5.7 % of total Hgb [facility] Blood specimen (specimen) 05/26/2021 11:43 AM CDT 05/26/2021 11:44 AM CDT Francisco Long MD LAB BLOOD ORDERABLES Final Res ult Performing Organization Address [facility] Co de Phone Number [facility] [address] [address] [address] documented in this encounter Visit Diagnoses Diagnosis 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)- Primary Anemia, unspecified type Essential hypertension Unspecified essential hypertension Encounter for therapeutic drug monitoring documented in this encounter Care Teams Cognos Relationship Specialty Start Date End Date Francisco Long MD PCP - General 02/23/17 05/15/22 Neil Ag MD PhD 6 [place] [address] Radiation Oncologist Radiation Oncology 12/17/18 [place] [address] [id number] Referring Physician General Surgery 12/17/18 [place] [address] [id number] Medical Oncologist/Station Repairer Medical Oncology 12/17/18 [place] [address] [address] [address] Consulting Physician Gastroenterology 01/07/20 documented as of this encounter
--- OUTSIDE RECORDS SUMMARY | 2024-11-16 15:32 | XMS_ITS | Encounter Summary ---
Author Organization [facility] Address [address] [place] [address] Care Team Providers Care Material Assistant Name Role Phone Francisco Long MD Primary Care Provider [phone] Neil Ag MD PhD Unavailable [phone] Ita estrada MD Unavailable Caron Mohan MD Unavailable Pebbles Felton MD Unavailable [phone] Encounter Details Date Type Department Care Team (Late st Contact Info) Description 03/10/2021 Telephone [facility] [address] [facility] [address] [place] [address] Larry Wetzel PA [address] [place] [address] [address] [place] [address] Social History Tobacco Use Types [...] on file 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 Please advise [phone] documented in this encounter Plan of Treatment Not on file documented as of this encounter Visit Diagnoses Not on filedocumented in this encounter Care Teams Material Assistant Relationship Specialty Start Date End Date Francisco Long MD PCP - General 02/23/17 05/15/22 Neil Ag MD PhD [address] [place] [address] Radiation Oncologist Radiation Oncology 12/17/18 [place] [address] [address] [facility] [address] [place] [address] Referring Physician General Surgery 12/17/18 [place] [address] [address] [facility] [address] [place] [address] Medical Oncologist/Global Marketing Manager Medical Oncology 12/17/18 [place] [address] [address] Consulting Physician Gastroenterology 01/07/20 documented as of this encounter
--- OUTSIDE RECORDS SUMMARY | 2024-11-16 15:32 | XMS_ITS | Encounter Summary ---
Author Organization [facility] Address [address] [place] [address] Care Team Providers Care Full Stack Python Developer Name Role Phone Francisco Long MD Primary Care Provider [phone] Neil Ag MD PhD Unavailable [phone] Ita estrada MD Unavailable Caron Mohan MD Unavailable Pebbles Felton MD Unavailable [phone] Reason for Referral * Diagnostic Imaging (Routine) - Closed Specialty Diagnoses / Procedures Referred By Contac t Referred To Contact Diagnoses Vitamin D deficiency Screening for osteoporosis Post-menopausal Procedures Dexa Axial Skeleton Bone Density 1 or 2 Site Francisco Long MD Phone: tel: fax: [address] [address] Referral ID Status Reason Start Date Expiration Date Visits Re quested Visits Authorized [id number] Closed 11/01/2020 12/01/2021 1 1 Reason for Visit * Diagnostic Imaging (Routine) - Closed Specialty Diagnoses / Procedures Referred By Contac t Referred To Contact Diagnoses Vitamin D deficiency Screening for osteoporosis Post-menopausal Procedures Dexa Axial Skeleton Bone Density 1 or 2 Site Francisco Long MD Phone: tel: fax: [address] [address] Referral ID Status Reason Start Date Expiration Date Visits Re quested Visits Authorized [id number] Closed 11/01/2020 12/01/2021 1 1 Encounter Details Date Type Department Care Team (Latest Contact Info) Description 06/28/2021 9:41 AM CDT - 06/28/2021 11:59 PM CDT Hospital Encounter [facility] [address] [place] [address] Francisco Long MD [address] [place] [address] [place] [address] Vitamin D deficiency; Screening for osteoporosis; Post-menopausal [...] on file 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 Veterinary Pathologist/Model: ?? Kickit With Discovery SL (S/N [id number]) CLINICAL INFORMATION: ??Current height: ??67 inches ? [...] AM T: ??06/28/2021 9:59 AM Report ID: [id number] Reading Location: ??[id number] Procedure Note Berry Whitfield MD - 06/28/2021 EXAM DESCRIPTION: DEXA AXIAL SKELETON BONE DENSITY 1 OR MORE SITES REASON FOR STUDY: 75 year old female with given history ofpostmenopausal screening. Veterinary Pathologist/Model: Kickit With Discovery SL (S/N [id number]) CLINICAL INFORMATION: Current height: 67 inches Maximum [...] by Berry Whitfield M.D. MD: Report ID: [id number] Reading Location: [place] [address] Francisco Long MD IMG DXA PROCEDURES Final Resul t documented in this encounter Visit Diagnoses Diagnosis Vitamin D deficiency Screening for osteoporosis Special screening for osteoporosis Post-menopausal Asymptomatic postmenopausal status (age-related) (natural) documented in this encounter Care Teams Full Stack Python Developer Relationship Specialty Start Date End Date Francisco Long MD PCP - General 02/23/17 05/15/22 Neil Ag MD PhD [address] [place] [address] Radiation Oncologist Radiation Oncology 12/17/18 [place] [address] [address] [id number] Referring Physician General Surgery 12/17/18 [place] [address] [address] [place] [address] Medical Oncologist/Manager Contracting Medical Oncology 12/17/18 [place] [address] [facility] [address] [address] Consulting Physician Gastroenterology 01/07/20 documented as of this encounter
--- OUTSIDE RECORDS SUMMARY | 2024-11-16 15:32 | XMS_ITS | Encounter Summary ---
Author Organization [facility] Medical Group Address [address] [place] [address] Care Team Providers Care Dry Transfer Man Name Role Phone Francisco Long MD Primary Care Provider [phone] Neil Ag MD PhD Unavailable [phone] Ita estrada MD Unavailable Caron Mohan MD Unavailable [phone] Pebbles Felton MD Unavailable [phone] Reason for Visit * Reason Comments GI Bleeding f/u Encounter Details Date Type Department Care Team (Late st Contact Info) Description 02/10/2021 1:00 PM CDT Office Visit [facility] 2 [facility] [address] [place] [address] Francisco Long MD [address] [place] [address] [address] [place] [address] Essential hypertension (Primary Dx); Body mass index [...] on file 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 Gender Identity Not on file Sexual [...] no black stools no bloody stools 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 for the next [...] type documented in this encounter Care Teams Dry Transfer Man Relationship Specialty Start Date End Date Francisco Long MD PCP - General 02/23/17 05/15/22 Neil Ag MD PhD 6 [place] [address] Radiation Oncologist Radiation Oncology 12/17/18 [place] [address] [address] [email or web address] [address] Referring Physician General Surgery 12/17/18 [place] [address] [address] [email or web address] [address] Medical Oncologist/Turbine Engineer Medical Oncology 12/17/18 [place] [address] [facility] [address] [address] Consulting Physician Gastroenterology 01/07/20 documented as of this encounter
--- OUTSIDE RECORDS SUMMARY | 2024-11-16 15:32 | XMS_ITS | Encounter Summary ---
Author Organization [facility] Medical [facility] Address [address] [place] [address] Care Team Providers Care Utility Engineer Name Role Phone Francisco Long MD Primary Care Provider [phone] Neil Ag MD PhD Unavailable [phone] Ita estrada MD Unavailable Caron Mohan MD Unavailable Pebbles Felton MD Unavailable [phone] Encounter Details Date Type Department Care Team (Late st Contact Info) Description 02/01/2021 Telephone [facility] [address] [facility] [address] [place] [address] Francisco Long MD [address] [place] [address] [address] [place] [address] Social History Tobacco Use Types [...] on file 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 MATIC CASTING MACHINE OPERATOR * Telephone Encounter - Winter Martinez MA - 02/01/2021 8:30 AM CST lmom making pt aware MATIC CASTING MACHINE OPERATOR * Telephone Encounter - Winter Martinez MA - 02/01/2021 8:30 AM CST ----- Message from Francisco Long MD sent at 02/01/2021 6:37 AM AUTOMATIC CASTING MACHINE OPERATOR ----- Okay to leave a message hemoglobin up to 10.3 good news MATIC CASTING MACHINE OPERATOR documented in this encounter Plan of Treatment Not on file documented as of this encounter Visit Diagnoses Not on filedocumented in this encounter Care Teams Utility Engineer Relationship Specialty Start Date End Date Francisco Long MD PCP - General 02/23/17 05/15/22 Neil Ag MD PhD 6 [place] [address] Radiation Oncologist Radiation Oncology 12/17/18 [place] [address] [address] Referring Physician General Surgery 12/17/18 [place] [address] [address] Medical Oncologist/Supplier Specialist Medical Oncology 12/17/18 [place] [address] [address] Consulting Physician Gastroenterology 01/07/20 documented as of this encounter
--- OUTSIDE RECORDS SUMMARY | 2024-11-16 15:32 | XMS_ITS | Encounter Summary ---
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 Encounter Details Date Type Department Care Team (Late st Contact Info) Description 05/26/2021 10:15 AM CDT Office Visit [facility] 2 [facility] [address] [place] [address] Francisco Long MD [address] [place] [address] [address] [place], [place] [id number] 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) [...] on file 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 Gender Identity Not on file Sexual Orientation [...] thrombosis) documented in this encounter Care Teams Road Machine Runner Relationship Specialty Start Date End Date Francisco Long MD PCP - General 02/23/17 05/15/22 Neil Ag MD PhD 6 [place] [address] Radiation Oncologist Radiation Oncology 12/17/18 [place] [address] [facility] [address] [place], [place] [address] Referring Physician General Surgery 12/17/18 [place] [address] [facility] [address] [place], [place] [address] Medical Oncologist/Four Corner Stayer Machine Operator Medical Oncology 12/17/18 [place] [address] [facility] [address] [place] [address] Consulting Physician Gastroenterology 01/07/20 documented as of this encounter
--- OUTSIDE RECORDS SUMMARY | 2024-11-16 15:33 | XMS_ITS | Encounter Summary ---
Author Organization [facility] Medical Group Address [address] [facility] [address] [place] [address] Care Team Providers Care Wafer Polishing Lead Worker Name Role Phone Francisco Long MD Primary Care Provider [phone] Neil Ag MD PhD Unavailable [phone] Ita Vazquez MD Unavailable Caron Mohan MD Unavailable [phone] Pebbles Felton MD Unavailable [phone] Reason for Visit * Reason Comments Shortness of Breath with excertion head congestion Encounter Details Date Type Department Care Team (Late st Contact Info) Description 12/30/2020 1:45 PM JOINT SETTER Office Visit [facility] 2 [facility] [address] [place] [address] Francisco Long MD [address] [place] [address] [address] [place] [address] Acute upper GI bleed (Primary Dx); Body [...] on file 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 Gender Identity Not on file Sexual Orientation Not on file documented as of this encounter Last Filed Vital Signs Vital Sign Reading Time Taken Comments Blood Pressure 130/70 12/30/2020 1:44 PM JOINT SETTER Pulse 80 12/30/2020 1:44 PM JOINT SETTER Temperature - - Respiratory Rate 20 12/30/2020 1:44 PM JOINT SETTER Oxygen Saturation - - Inhaled Oxygen Concentration - - Weight 85.3 kg (188 lb) 12/30/2020 1:44 PM JOINT SETTER Height 170.2 cm (5' 7 ) 12/30/2020 1:44 PM JOINT SETTER Body Mass Index 29.44 12/30/2020 1:44 PM JOINT SETTER documented in this encounter Ordered Prescriptions Prescription [...] she is taking iron supplementation 1 daily [id number]-[id number] but she did require IV iron infusions [...] been over 40 years 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 T SETTER documented in this encounter Plan of Treatment [...] result. 12/29/2020 12/29/2020 01/12/2021 3:0 6 AM JOINT SETTER documented as of this encounter Care Teams Wafer Polishing Lead Worker Relationship Specialty Start Date End Date Francisco Long MD PCP - General 02/23/17 05/15/22 Neil Ag MD PhD 6 [place] [address] Radiation Oncologist Radiation Oncology 12/17/18 [place] [address] [facility] [address] [facility], [place] [address] Referring Physician General Surgery 12/17/18 [place] [address] [facility] [address] [facility], [place] [phone] Medical Oncologist/Voice Intercept Technician Medical Oncology 12/17/18 [place] [address] [facility] [address] [place] [address] Consulting Physician Gastroenterology 01/07/20 documented as of this encounter
--- OUTSIDE RECORDS SUMMARY | 2024-11-16 15:33 | XMS_ITS | Encounter Summary ---
Author Organization [facility] Medical Group Address [address] [facility] [address] [place] [address] Care Team Providers Care Nursing Assistants Teacher Name Role Phone Francisco Long MD Primary Care Provider [phone] Neil Ag MD PhD Unavailable [phone] Ita estrada MD Unavailable Caron Mohan MD Unavailable Pebbles Felton MD Unavailable [phone] Encounter Details Date Type Department Care Team (Late st Contact Info) Description 12/31/2020 Orders Only [facility] 2 [facility] [address] [place] [address] Francisco Long MD [address] [place] [address] [address] [place] [address] Anemia, unspecified type (Primary Dx) [...] on file 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 Gender Identity Not on file Sexual Orientation Not on file documented as of this encounter Miscellaneous Notes * Addendum Note - Kae Burton - 12/31/2020 2:32 PM CSTAddended by: KAE BURTON on: 01/03/2021 09:15 AM Modules accepted: Orders CLERK BILLS documented in this encounter Plan of Treatment Not on file documented as of this encounter Results * (ABNORMAL) Hemoglobin and hematocrit (01/03/2021 9:19 AM MAIL CLERK BILLS) Hgb 8.5(L) 11.9 - 15.5 g/dL [facility] Hct 28.8(L) 35.6 - 45.5 % [facility] Blood specimen (specimen) 01/03/2021 9:19 AM MAIL CLERK BILLS 01/03/2021 10:17 AM MAIL CLERK BILLS us Francisco Long MD LAB BLOOD ORDERABLES Final Res ult [facility] ([place]) [address] [facility] Department [place] [address] documented in this encounter Visit Diagnoses Diagnosis Anemia, unspecified type- Primary documented in this encounter Additional Health Concerns Infection Onset Date Last Indicated Resolved Time Respiratory Infection (TITI), contact + droplet Comment:Automatically added due to negative COVID-19 result. 12/29/2020 12/29/2020 01/12/2021 3:0 6 AM MAIL CLERK BILLS documented as of this encounter Care Teams Nursing Assistants Teacher Relationship Specialty Start Date End Date Francisco Long MD PCP - General 02/23/17 05/15/22 Neil Ag MD PhD 6 [place] [address] Radiation Oncologist Radiation Oncology 12/17/18 [place] [address] [address] [facility] [address] [place], [place] [address] Referring Physician General Surgery 12/17/18 [place] [address] [address] [place] [phone] Medical Oncologist/Sourcing Internship Medical Oncology 12/17/18 [place] [address] [address] [facility] [address] [facility] [place] [address] Consulting Physician Gastroenterology 01/07/20 documented as of this encounter
--- OUTSIDE RECORDS SUMMARY | 2024-11-16 15:33 | XMS_ITS | Encounter Summary ---
Author Organization [facility] Healthcare Address [address] [place] [address] Care Team Providers Care Freight Tallier Name Role Phone Francisco Long MD Primary Care Provider [phone] Neil Ag MD PhD Unavailable [phone] Ita Vazquez MD Unavailable Caron Mohan MD Unavailable Pebbles Felton MD Unavailable [phone] Encounter Details Date Type Department Care Team (Late st Contact Info) Description 01/03/2021 2:10 PM BINDING MACHINE OPERATOR Lab [address] [address] Pebbles Felton MD [address] [place] [address] Pre-procedure lab exam Discharge Disposition: Discharge [...] on file Legal Sex Female 12:21 PM BINDING MACHINE OPERATOR Gender Identity Not on file Sexual Orientation Not on file documented as of this encounter Discharge Disposition Disposition Code Departure Means Destination Discharge to home or self care documented in this encounter Plan of Treatment Not on file documented as of this encounter Procedures Procedure Name Priority Date/Time Associated Diagnosis Comments COVID-19 CORONAVIRUS RNA Routine 01/03/2021 2:21 PM BINDING MACHINE OPERATOR Pre-procedure lab exam documented in this encounter Results * COVID-19 Coronavirus RNA Nasopharyngeal (01/03/2021 2:21 PM BINDING MACHINE OPERATOR) COVID-19 RNA Not Detected [facility]ren[facility] [...] and NAAT . ??Testing performed by the [facility] Molecular Infectious Disease Laboratory. The 2019-Novel [...] [facility] ([place]) Comment:Testing performed by : [facility], [address] [facility], [address] Employeed in healthcare? No MEHRAN THOMAS (GABINO) Comment:Testing performed by : [facility], [address] [facility], [address] status? No CE MONIE THOMAS (GABINO) Comment:Testing performed by : [facility], [address] [place] [address], [address] Group care resident? No MEHRAN THOMAS (GABINO) Comment:Testing performed by : [facility], [address] [place] [address], [id number] Hospitalized? No MEHRAN THOMAS (GABINO) Comment:Testing performed by : [facility], [address] [facility], [address] Is patient in ICU? No MEHRAN THOMAS (GABINO) Comment:Testing performed by : [facility], [address] [place] [address], [id number] Symptomatic as defined by CDC? No MEHRAN THOMAS (GABINO) Comment:Testing performed by : [facility], [address] [place] [address], [id number] Nasopharyngeal 01/03/2021 2: 21 PM BINDING MACHINE OPERATOR 01/04/2021 2:55 AM BINDING MACHINE OPERATOR Narrative MEHRAN THOMAS ([place]) - 01/04/2021 8:24 PM BINDING MACHINE OPERATOR What is the reason for testing?->Screening prior to scheduled procedure or surgery Pebbles Felton MD LAB MICROBIOLOGY - GENERAL ORDERABLES Final Result MEHRAN THOMAS ([place]) 1 [facility] Department [place] [address] documented in this encounter Visit Diagnoses Diagnosis Pre-procedure lab exam Pre-procedural laboratory examination documented in this encounter Additional Health Concerns Infection Onset Date Last Indicated Resolved Time Respiratory Infection (TITI), contact + droplet Comment:Automatically added due to negative COVID-19 result. 12/29/2020 12/29/2020 01/12/2021 3:0 6 AM BINDING MACHINE OPERATOR documented as of this encounter Care Teams Freight Tallier Relationship Specialty Start Date End Date Francisco Long MD PCP - General 02/23/17 05/15/22 Neil Ag MD PhD [address] [place] [address] Radiation Oncologist Radiation Oncology 12/17/18 [place] [address] [address] [facility] [address] [id number] [id number] Referring Physician General Surgery 12/17/18 [place] [address] [address] [facility] [address] [place] [id number] Medical Oncologist/Subeditor Medical Oncology 12/17/18 [place] [address] [address] [facility] [address] [place] [id number] Consulting Physician Gastroenterology 01/07/20 documented as of this encounter
--- OUTSIDE RECORDS SUMMARY | 2024-11-16 15:33 | XMS_ITS | Encounter Summary ---
Author Organization [facility] Healthcare Address [address] [place] [address] Care Team Providers Care Glue Spreading Machine Operator Name Role Phone Francisco Long MD Primary Care Provider Neil Ag MD PhD Unavailable [phone] Ita Vazquez MD Unavailable Caron Mohan MD Unavailable Pebbles Felton MD Unavailable [phone] Encounter Details Date Type Department Care Team (Late st Contact Info) Description 12/30/2020 2:45 PM WIRE DRAWING SETTER Lab [facility] 1 [place] [address] Francisco Long MD [address] [place], [place] [address] Anemia, unspecified type; Dyspnea on exertion Discharge [...] file Legal Sex Female 12:21 PM WIRE DRAWING SETTER Gender Identity Not on file Sexual Orientation Not on file documented as of this encounter Discharge Disposition Disposition Code Departure Means Destination Discharge to home or self care documented in this encounter Plan of Treatment Not on file documented as of this encounter Procedures Procedure Name Priority Date/Time Associated Diagnosis Comments IRON PROFILE W/ IBC STAT 12/30/2020 2 :42 PM WIRE DRAWING SETTER Anemia, unspecified type Dyspnea on exertion HEMOGLOBIN STAT 12/30/2020 2:42 PM WIRE DRAWING SETTER Anemia, unspecified type Dyspnea on exertion documented in this encounter Results * (ABNORMAL) Iron profile w/ IBC (12/30/2020 2:42 PM WIRE DRAWING SETTER) Iron 22(L) 35 - 145 mcg/dL [facility] ([place]) TIBC 399 250 - 400 mcg/dL [facility] ([place]) Transferrin saturation 6(L) 20 - 50 % [facility] ([place]) Blood specimen (specimen) 12/30/2020 2:42 PM WIRE DRAWING SETTER 12/30/2020 2:48 PM WIRE DRAWING SETTER Narrative [facility] ([place]) - 12/30/2020 3:11 PM WIRE DRAWING SETTER STAT today us Francisco Long MD LAB BLOOD ORDERABLES Final Res ult [facility] ([place]) 1 [facility] [place] [address] * (ABNORMAL) Hemoglobin (12/30/2020 2:42 PM WIRE DRAWING SETTER) Hgb 8.6(L) 11.9 - 15.5 g/dL [facility]ENNIF[facility] ([place]) Blood specimen (specimen) 12/30/2020 2:42 PM WIRE DRAWING SETTER 12/30/2020 2:49 PM WIRE DRAWING SETTER Narrative MEHRAN THOMAS ([place]) - 12/30/2020 2:51 PM WIRE DRAWING SETTER STAT today us Francisco Long MD LAB BLOOD ORDERABLES Final Res ult MEHRAN THOMAS ([place]) 1 [facility] [place] [address] documented in this encounter Visit Diagnoses Diagnosis Anemia, unspecified type Dyspnea on exertion Other dyspnea and respiratory abnormality documented in this encounter Additional Health Concerns Infection Onset Date Last Indicated Resolved Time Respiratory Infection (TITI), contact + droplet Comment:Automatically added due to negative COVID-19 result. 12/29/2020 12/29/2020 01/12/2021 3:0 6 AM WIRE DRAWING SETTER documented as of this encounter Care Teams Glue Spreading Machine Operator Relationship Specialty Start Date End Date Francisco Long MD PCP - General 02/23/17 05/15/22 Neil Ag MD PhD 6 [place] [address] Radiation Oncologist Radiation Oncology 12/17/18 [place] [address] [place], [place] [phone] Referring Physician General Surgery 12/17/18 [place] [address] [place], [place] [phone] Medical Oncologist/R D Internship Medical Oncology 12/17/18 [place] [address] [place] [address] Consulting Physician Gastroenterology 01/07/20 documented as of this encounter
--- OUTSIDE RECORDS SUMMARY | 2024-11-16 15:33 | XMS_ITS | Encounter Summary ---
Author Organization [facility] Healthcare Address [address] [place] [address] Care Team Providers Care Steward/Stewardess Tourist Class Name Role Phone Francisco Long MD Primary Care Provider [phone] Neil Ag MD PhD Unavailable [phone] Ita Vazquez MD Unavailable Caron Mohan MD Unavailable [phone] Pebbles Felton MD Unavailable [phone] Reason for Visit * Reason Comments OP Infusion Here to initiate IV Iron Sucrose, Oumar, #1 of 3. * Episode Based Medications (Routine) - Closed Specialty Diagnoses / Procedures Referred By Contac t Referred To Contact Diagnoses Iron deficiency anemia due to chronic blood loss Francisco Long MD [address] [place] [address] Phone: tel: fax: [facility]fusion [address] [place] [address] Phone: tel: Referral ID Status Reason Start Date Expiration Date Visits Re quested Visits Authorized [id number] Closed 01/04/2021 02/03/2022 1 1 Encounter Details Date Type Department Care Team (Late st Contact Info) Description 01/21/2021 10:30 AM PRODUCTION CONTROL EXPEDITER Infusion [facility]fusion [place] [address] [facility] [address] [place] [address] Francisco Long MD [address] [place] [address] [address] Iron deficiency anemia due to chronic blood [...] file Legal Sex Female 12:21 PM PRODUCTION CONTROL EXPEDITER Gender Identity Not on file Sexual Orientation Not on file documented as of this encounter Last Filed Vital Signs Vital Sign Reading Time Taken Comments Blood Pressure 138/61 01/21/2021 9:42 AM PRODUCTION CONTROL EXPEDITER Pulse 75 01/21/2021 9:42 AM PRODUCTION CONTROL EXPEDITER Temperature 36.2 ??C (97.2 ??F) 01/21/2021 9:42 AM CS T Respiratory Rate 20 01/21/2021 9:42 AM PRODUCTION CONTROL EXPEDITER Oxygen Saturation 100% 01/21/2021 9:42 AM PRODUCTION CONTROL EXPEDITER Inhaled Oxygen Concentration - - Weight - [...] Long this morning, prior to herappointment here. UCTION CONTROL EXPEDITER * Rivka Galan RN - 01/21/2021 10:30 [...] mode. She has her follow up appointments. UCTION CONTROL EXPEDITER UCTION CONTROL EXPEDITER documented in this encounter Plan of Treatment [...] blood loss New Bag 01/21/2021 10:03 AM PRODUCTION CONTROL EXPEDITER 300 mg 176.7 mL/hr Right Hand documented in this encounter Orders Medications Ordered That Álvaro ht Not Have Been Administered Count Last Ordered Date First Ordered Date iron sucrose (VENOFER) 300 m g in sodium chloride 0.9% 250 mL IVPB 1 01/21/2021 sodium chloride 0.9% flush 10 mL 1 01/21/20 documented in this encounter Care Teams Steward/Stewardess Tourist Class Relationship Specialty Start Date End Date Francisco Long MD PCP - General 02/23/17 05/15/22 Neil Ag MD PhD [address] [place] [address] Radiation Oncologist Radiation Oncology 12/17/18 [place] [address] [address] [facility] 120 [place], [place] [address] Referring Physician General Surgery 12/17/18 [place] [address] [address] [facility] [address] [place] [address] Medical Oncologist/Coal Chemist Medical Oncology 12/17/18 [place] [address] [address] [facility] [address] [place] [address] Consulting Physician Gastroenterology 01/07/20 documented as of this encounter
--- OUTSIDE RECORDS SUMMARY | 2024-11-16 15:33 | XMS_ITS | Encounter Summary ---
Author Organization [facility] Address [address] [facility] [address] [place] [address] Care Team Providers Care Wellness Nurse Rn Name Role Phone Francisco Long MD Primary Care Provider [phone] Neil Ag MD PhD Unavailable [phone] Ita estrada MD Unavailable Caron Mohan MD Unavailable [phone] Pebbles Felton MD Unavailable [phone] Encounter Details Date Type Department Care Team (Late st Contact Info) Description 12/29/2020 Telephone [facility] 2 [facility] [address] [place] [address] Marianne Mendez, LAW ENFORCEMENT OFFICER [address] [place] [address] Social History Tobacco Use Types [...] on file Legal Sex Female 12:21 PM FLEET MAINTENANCE MANAGER Gender Identity Not on file Sexual Orientation Not on file documented as of this encounter Miscellaneous Notes * Telephone Encounter - Sofiya Baez MA - 12/29/2020 9:01 AM CST Patient aware and has scheduled an apt with JR tomorrow 12/30/20 T MAINTENANCE MANAGER * Telephone Encounter - Sofiya Baez MA - 12/29/2020 9:01 AM CST ----- Message from Marianne Mendez NP sent at 12/29/2020 8:14 AM FLEET MAINTENANCE MANAGER ----- Please let Jyotsna know her COVID swab was negative. Also please have her [facility]. Schedule f/u with Dr. Long or I tomorrow or Sunday. T MAINTENANCE MANAGER documented in this encounter Plan of Treatment Not on file documented as of this encounter Visit Diagnoses Not on filedocumented in this encounter Additional Health Concerns Infection Onset Date Last Indicated Resolved Time COVID: Suspected 12/28/2020 12/28/2020 12/29/2020 7:21 AM FLEET MAINTENANCE MANAGER Respiratory Infection (TITI), contact + droplet Comment:Automatically added due to negative COVID-19 result. 12/29/2020 12/29/2020 01/12/2021 3:0 6 AM FLEET MAINTENANCE MANAGER documented as of this encounter Care Teams Wellness Nurse Rn Relationship Specialty Start Date End Date Francisco Long MD PCP - General 02/23/17 05/15/22 Neil Ag MD PhD [address] [place] [address] Radiation Oncologist Radiation Oncology 12/17/18 [place] [address] [facility] 120 [place], [place] [address] Referring Physician General Surgery 12/17/18 [place] [address] [facility] 120 [place], [place] [phone] Medical Oncologist/Instructional Design Technologist Medical Oncology 12/17/18 [place] [address] [facility] 120 [place] [address] Consulting Physician Gastroenterology 01/07/20 documented as of this encounter
--- OUTSIDE RECORDS SUMMARY | 2024-11-16 15:33 | XMS_ITS | Encounter Summary ---
Author Organization [facility] Medical Group Address [address] [facility] [address] [place] [address] Care Team Providers Care Ruffler Name Role Phone Francisco Long MD Primary Care Provider [phone] Neil Ag MD PhD Unavailable [phone] Ita estrada MD Unavailable Caron Mohan MD Unavailable [phone] Pebbles Felton MD Unavailable [phone] Encounter Details Date Type Department Care Team (Late st Contact Info) Description 01/03/2021 Orders Only [facility] 2 [facility] [address] [place] [address] Francisco Long MD [address] [place] [address] [address] [place] [address] Acute upper GI bleed (Primary [...] on file Legal Sex Female 12:21 PM AUTOGLAZIER Gender Identity Not on file Sexual Orientation [...] result. 12/29/2020 12/29/2020 01/12/2021 3:0 6 AM AUTOGLAZIER documented as of this encounter Care Teams Ruffler Relationship Specialty Start Date End Date Francisco Long MD PCP - General 02/23/17 05/15/22 Neil Ag MD PhD 6 [place] [address] Radiation Oncologist Radiation Oncology 12/17/18 [place] [address] [facility] [address] [employer], [place] [address] Referring Physician General Surgery 12/17/18 [place] [address] [facility] [address] [employer], [place] [phone] Medical Oncologist/Driveway Sealer Medical Oncology 12/17/18 [place] [address] [facility] [address] [place] [address] Consulting Physician Gastroenterology 01/07/20 documented as of this encounter
--- OUTSIDE RECORDS SUMMARY | 2024-11-16 15:33 | XMS_ITS | Encounter Summary ---
Author Organization [facility] Healthcare Address [address] [place] [address] Care Team Providers Care Primary Education Professor Name Role Phone Francisco Long MD Primary Care Provider Neil Ag MD PhD Unavailable Ita Vazquez MD Unavailable Caron Mohan MD Unavailable Pebbles Felton MD Unavailable [phone] Encounter Details Date Type Department Care Team (Latest Contact Info) Description 01/05/2021 12:30 PM BREWMASTER - 01/05/2021 12:[address] [facility] 1 [place] [address] Pebbles Felton MD [address] [place] [address] ESOPHAGOGASTRODUODENOSCOPY BIOPSY Surgery Details Date/Time Status Location [...] on file Legal Sex Female 12:21 PM BREWMASTER Gender Identity Not on file Sexual Orientation Not on file documented as of this encounter Last Filed Vital Signs Vital Sign Reading Time Taken Comments Blood Pressure 161/88 01/05/2021 11:31 AM BREWMASTER Pulse 75 01/05/2021 11:31 AM BREWMASTER Temperature 36.8 ??C (98.2 ??F) 01/05/2021 11:[address] Respiratory Rate 24 01/05/2021 11:31 AM BREWMASTER Oxygen Saturation 98% 01/05/2021 11:31 AM BREWMASTER Inhaled Oxygen Concentration - - Weight 85.3 kg (188 lb) 01/05/2021 11:31 AM BREWMASTER Height 170.2 cm (5' 7 ) 01/05/2021 11:31 AM BREWMASTER Body Mass Index 29.44 01/05/2021 11:31 AM BREWMASTER documented in this encounter Medications at Time [...] mouth daily 30 tablet 11 07/01/2020 1 apixaban (ELIQUIS) 5 mg tabletIndication s:deep venous thrombosis Take 1 tablet (5 mg total) by mouth 2 (two) times a day 180 tablet 3 12/09/2019 1 documented as of this encounter Discharge [...] (40 mg total) by mouth daily 30 [id number] 01/05/2021 at Unknown time ??? rosuvastatin (CRESTOR) [...] GI PLAN/RECOMMENDATIONS: 1. EGD Pebbles Felton MD MASTER documented in this encounter Procedure Notes * Pebbles Felton MD - 01/05/2021 12:36 PM CSTAssociated Order(s): EGD [facility] Patient Name: Jolene Gordon Procedure Date: 01/05/2021 12:36 PM Date of : 1945 Admit Type: Outpatient Age: 75 Gender: Female Attending MD: Pebbles Felton M.D. Room: [facility] ENDOSCOPY ROOM 1 Note Status: Finalized Patient [...] passed under direct vision. The Endoscope GIF-H190 [id number] was introduced through the mouth, and advanced [...] 12:36 PM Procedure Code(s): --- Professional --- 36236, Esophagogastroduodenoscopy, flexible, transoral; with biopsy, single or multiple Diagnosis Code(s): --- Professional --- K31.89, Other diseases of stomach and duodenum K44.9, Diaphragmatic hernia without obstruction or gangrene D50.9, Iron deficiency anemia, unspecified CPT copyright 2019 [employer]. All rights reserved. The codes documented in this report are preliminary and upon quarter doper review may be revised to meet current compliance requirements. Recognized by the [employer] for promoting quality in endoscopy MASTER documented in this encounter Miscellaneous Notes * Perioperative Nursing Note - Zulema Patel RN - 01/05/2021 1:[address] Felton in to discuss test results with patient and family. Patient to contact him if they decide to have surgery to fix hernia. Patient to be scheduled to for capsule endoscopy. MASTER documented in this encounter Plan of Treatment Not on file documented as of this encounter Procedures Procedure Name Priority Date/Time Associated Diagnosis Comments SURGICAL PATHOLOGY STAT 01/05/2021 3:40 PM BREWMASTER Acute upper GI bleed H. PYLORI UREASE SCREEN (RADHA TEST) STAT 01/05/2021 12:45 PM BREWMASTER EGD 01/05/2021 12:36 PM BREWMASTER ESOPHAGOGASTRODUODENOSCOPY BIOPSY 01/05/2021 12:35 PM BREWMASTER Acute upper GI bleed documented in this encounter Results * Surgical pathology (01/05/2021 3:40 PM BREWMASTER) Tissue (Small bowel, biopsy) 01/05/2021 12:50 PM BREWMASTER Narrative PATHOLOGY [facility] ([place]) - 01/07/2021 9:43 AM BREWMASTER [facility] results best viewed via link to PDF [facility] Department of Pathology [address] [place] [address] Final Report Patient Name: ??JOLENE GORDON Address: ??[address] [place] [address], ??[place], [place] ??[address] Gender: ??F : ??1945 (Age: 75) Service: ??Gastro Location: ??[facility] Hospital #: ??[id number] Patient Type: ??[facility] SDS Accession # ?[id number] Taken: ??01/05/2021 Received: ??01/05/2021 Accessioned: ??01/05/2021 Reported: ??01/07/2021 Physician(s):Dr. Pebbels Felton M.D. Diagnosis: Duodenum, biopsy: ? - [...] determined by the Surgical Pathology Department at [facility] as part of an ongoing rn clinical quality program and in compliance with federally [...] characteristics determined by the Surgical Pathology Department [facility]. ??It has not been cleared or approved by the U. S. Food and Drug Administration. Pebbles Felton MD LAB PATHOLOGY ORDERABLES F inal Result Performing Organization Address City/[facility]/ZIP Co de Phone Number PATHOLOGY [facility] ([place]) 1 [place] [address] * H. pylori urease screen (RADHA test) Tissue (01/05/2021 12:45 PM BREWMASTER) H. pylori, rapid (RADHA) Negative Negative [facility] ([place]) Tissue 01/05/2021 12:4 5 PM BREWMASTER 01/05/2021 3:50 PM BREWMASTER Pebbles Felton MD LAB MICROBIOLOGY - GENERAL ORDERABLES Final Result Performing Organization Address [facility]/ZIP Co de Phone Number CERNER [facility] ([place]) 1 [facility] Department [place] [address] * EGD (01/05/2021 12:36 PM BREWMASTER) Anatomical Region Laterality Modality Other Narrative Procedure Note Pebbles Felton MD - 01/05/2021 12:36 PM CST [facility] Patient Name: Jolene Gordon Procedure Date: 01/05/2021 12:36 PM Date of : 1945 Admit Type: Outpatient Age: 75 Gender: Female Attending MD: Pebbles Felton M.D. Room: [facility] ENDOSCOPY ROOM 1 Note Status: Finalized Patient [...] passed under direct vision. The Endoscope [id number]-[id number] was introduced through the mouth, and advanced [...] 12:36 PM Procedure Code(s): --- Professional --- 19387, Esophagogastroduodenoscopy, flexible, transoral; with biopsy, single or multiple Diagnosis Code(s): --- Professional --- K31.89, Other diseases of stomach and duodenum K44.9, Diaphragmatic hernia without obstruction or gangrene D50.9, Iron deficiency anemia, unspecified CPT copyright 2019 [employer]. All rights reserved. The codes documented in this report are preliminary and upon quarter doper reviewmay be revised to meet current compliance requirements. Recognized by the [employer] for promoting quality [...] Pre-Procedure (GI) New Bag 01/05/2021 12:09 PM BREWMASTER 30 mL/hr 30 mL/hr sodium chloride 0.9% infusion 125 mL/hr, intravenous, Continuous, Starting on Sun01/05/21 at 1200, Recovery (GI) New Bag 01/05/2021 12:40 PM BREWMASTER documented in this encounter Active and Recently Administered Medications Times are shown in BREWMASTER. Scheduled Medication Order 01/03/2021 01/04/2021 01/05/2021 sodium [...] result. 12/29/2020 12/29/2020 01/12/2021 3:0 6 AM BREWMASTER documented as of this encounter Care Teams Primary Education Professor Relationship Specialty Start Date End Date Francisco Long MD PCP - General 02/23/17 05/15/22 Neil Ag MD PhD 6 [place] [address] Radiation Oncologist Radiation Oncology 12/17/18 [place] [address] [address] [facility] [address] [place] [id number] Referring Physician General Surgery 12/17/18 [place] [address] [address] [facility] [address] [place] [id number] Medical Oncologist/Docking Pilot Medical Oncology 12/17/18 [place] [address] [address] [facility] [address] [place] [address] Consulting Physician Gastroenterology 01/07/20 documented as of this encounter
--- OUTSIDE RECORDS SUMMARY | 2024-11-16 15:33 | XMS_ITS | Encounter Summary ---
Author Organization [facility] Address [address] [facility] [address] [place] [address] Care Team Providers Care Ski Lift Attendant Name Role Phone Francisco Long MD Primary Care Provider [phone] Neil Ag MD PhD Unavailable [phone] Ita Vazquez MD Unavailable Caron Mohan MD Unavailable Pebbles Felton MD Unavailable [phone] Reason for Visit * Reason Comments GI Bleeding f/u Encounter Details Date Type Department Care Team (Late st Contact Info) Description 01/21/2021 8:45 AM BUSINESS ADMINISTRATION TEACHER Office Visit [facility] [place] [facility] [address] [facility] [address] [place] [address] Francisco Long MD [address] [place] [address] [address] [place] [address] Acute upper GI bleed (Primary Dx); BMI [...] on file Legal Sex Female 12:21 PM BUSINESS ADMINISTRATION TEACHER Gender Identity Not on file Sexual Orientation Not on file documented as of this encounter Last Filed Vital Signs Vital Sign Reading Time Taken Comments Blood Pressure 122/74 01/21/2021 8:46 AM BUSINESS ADMINISTRATION TEACHER Pulse 74 01/21/2021 8:46 AM BUSINESS ADMINISTRATION TEACHER Temperature - - Respiratory Rate 16 01/21/2021 8:46 AM BUSINESS ADMINISTRATION TEACHER Oxygen Saturation - - Inhaled Oxygen Concentration - - Weight 83.9 kg (185 lb) 01/21/2021 8:46 AM BUSINESS ADMINISTRATION TEACHER Height 170.2 cm (5' 7 ) 01/21/2021 8:46 AM BUSINESS ADMINISTRATION TEACHER Body Mass Index 28.98 01/21/2021 8:46 AM BUSINESS ADMINISTRATION TEACHER documented in this encounter Progress Notes [...] a 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 NESS ADMINISTRATION TEACHER documented in this encounter Plan of [...] documented as of this encounter Care Teams Ski Lift Attendant Relationship Specialty Start Date End Date Francisco Long MD PCP - General 02/23/17 05/15/22 Neil Ag MD PhD 6 [place] [address] Radiation Oncologist Radiation Oncology 12/17/18 [place] [address] [facility] [address] [place] [place] [address] Referring Physician General Surgery 12/17/18 [place] [address] [facility] [address] [place] [address] Medical Oncologist/Commercial Real Estate Broker Medical Oncology 12/17/18 [place] [address] [facility] [address] [place] [place] [address] Consulting Physician Gastroenterology 01/07/20 documented as of this encounter
--- OUTSIDE RECORDS SUMMARY | 2024-11-16 15:33 | XMS_ITS | Encounter Summary ---
Author Organization [facility] Address [address] [facility] [address] [place] [address] Care Team Providers Care Chief Mechanical Engineer Name Role Phone Francisco Long MD Primary Care Provider [phone] Neil Ag MD PhD Unavailable [phone] Ita estrada MD Unavailable Caron Mohan MD Unavailable Pebbles Felton MD Unavailable [phone] Reason for Visit * Reason Comments Anemia Encounter Details Date Type Department Care Team (Late st Contact Info) Description 01/03/2021 10:00 AM HIGH SCHOOL TUTOR Office Visit [facility] [facility] [address] [facility] [address] [place] [address] Francisco Long MD [address] [place] [address] [address] [place], [place] [id number] Acute upper GI bleed (Primary Dx); Body [...] Comments Blood Pressure 120/70 01/03/2021 9:46 AM HIGH SCHOOL TUTOR Pulse 80 01/03/2021 9:46 AM HIGH SCHOOL TUTOR Temperature - - Respiratory Rate 20 01/03/2021 9:46 AM HIGH SCHOOL TUTOR Oxygen Saturation - - Inhaled Oxygen Concentration - - Weight 86.2 kg (190 lb) 01/03/2021 9:46 AM HIGH SCHOOL TUTOR Height 170.2 cm (5' 7 ) 01/03/2021 9:46 AM HIGH SCHOOL TUTOR Body Mass Index 29.76 01/03/2021 9:46 AM HIGH SCHOOL TUTOR documented in this encounter Progress Notes * [...] in agreement with the plan of care. SCHOOL TUTOR documented in this encounter Plan of Treatment [...] 12/29/2020 01/12/2021 3:0 6 AM HIGH SCHOOL TUTOR documented as of this encounter Care Teams Chief Mechanical Engineer Relationship Specialty Start Date End Date Francisco Long MD PCP - General 02/23/17 05/15/22 Neil Ag MD PhD 6 [place] [address] Radiation Oncologist Radiation Oncology 12/17/18 [place] [address] [address] [facility] [address] [place], [place] [address] Referring Physician General Surgery 12/17/18 [place] [address] [address] [place] [place] [address] [place] [address] Medical Oncologist/Financial Counselor Medical Oncology 12/17/18 [place] [address] [facility] [address] [place], [place] [id number] Consulting Physician Gastroenterology 01/07/20 documented as of this encounter
--- OUTSIDE RECORDS SUMMARY | 2024-11-16 15:33 | XMS_ITS | Encounter Summary ---
Author Organization [facility] Healthcare Address [address] [place] [address] Care Team Providers Care Wheel Assembler Name Role Phone Francisco Long MD Primary Care Provider [phone] Neil Ag MD PhD Unavailable Ita Vazquez MD Unavailable Caron Mohan MD Unavailable [phone] Pebbles Felton MD Unavailable [phone] Encounter Details Date Type Department Care Team (Late st Contact Info) Description 01/04/2021 Orders Only [facility] [address] [facility] [address] [place] [address] Francisco Long MD [address] [place] [address] [address] [place] [address] Social History Tobacco Use Types Packs/Day Years [...] on file Legal Sex Female 12:21 PM DRUM SEALER Gender Identity Not on file Sexual Orientation Not on file documented as of this encounter Plan of Treatment Not on file documented as of this encounter Visit Diagnoses Not on filedocumented in this encounter Additional Health Concerns Infection Onset Date Last Indicated Resolved Time Respiratory Infection (TITI), contact + droplet Comment:Automatically added due to negative COVID-19 result. 12/29/2020 12/29/2020 01/12/2021 3:0 6 AM DRUM SEALER documented as of this encounter Care Teams Wheel Assembler Relationship Specialty Start Date End Date Francisco Long MD PCP - General 02/23/17 05/15/22 Neil Ag MD PhD [address] [place] [id number] Radiation Oncologist Radiation Oncology 12/17/18 [place] [address] [place], [place] [phone] Referring Physician General Surgery 12/17/18 [place] [address] [place], [place] [address] Medical Oncologist/Line Service Person Medical Oncology 12/17/18 [place] [address] [facility] [address] [place] [address] Consulting Physician Gastroenterology 01/07/20 documented as of this encounter
--- OUTSIDE RECORDS SUMMARY | 2024-11-16 15:33 | XMS_ITS | Encounter Summary ---
Author Organization [facility] Healthcare Address [address] [place] [address] Care Team Providers Care Snuff Container Inspector Name Role Phone Francisco Long MD Primary Care Provider [phone] Neil Ag MD PhD Unavailable [phone] Ita Vazquez MD Unavailable Caron Mohan MD Unavailable Pebbles Felton MD Unavailable [phone] Encounter Details Date Type Department Care Team (Latest Contact Info) Description 01/19/2021 6:30 AM BUSINESS SERVICES ASSISTANT - 01/19/2021 11:59 PM [facility] Hospital Encounter [facility] [address] [place] [address] Pebbles Felton MD [address] [place] [address] Discharge Disposition: Discharge to home or self [...] file Legal Sex Female 12:21 PM BUSINESS SERVICES ASSISTANT Gender Identity Not on file Sexual [...] on filedocumented in this encounter Care Teams Snuff Container Inspector Relationship Specialty Start Date End Date Francisco Long MD PCP - General 02/23/17 05/15/22 Neil Ag MD PhD 6 [place] [address] Radiation Oncologist Radiation Oncology 12/17/18 [place] [address] [id number] Referring Physician General Surgery 12/17/18 [place] [address] [address] Medical Oncologist/Mechanical Product Engineer Medical Oncology 12/17/18 [place] [address] [address] Consulting Physician Gastroenterology 01/07/20 documented as of this encounter
--- OUTSIDE RECORDS SUMMARY | 2024-11-16 15:33 | XMS_ITS | Encounter Summary ---
Author Organization [facility] Healthcare Address [address] [place] [address] Care Team Providers Care Loading Shovel Oiler Name Role Phone Francisco Long MD Primary Care Provider Neil Ag MD PhD Unavailable [phone] Ita Vazquez MD Unavailable Caron Mohan MD Unavailable Pebbles Felton MD Unavailable [phone] Encounter Details Date Type Department Care Team (Late st Contact Info) Description 01/03/2021 9:15 AM MASTER BAKER Lab [facility] 1 [place] [address] Francisco Long MD [address] [place], [place] [id number] Anemia, unspecified type; Controlled diabetes mellitus type 2 with complications, unspecified whether skilled nursing insulin use ([facility]) Discharge Disposition: Discharge to home or [...] on file Legal Sex Female 12:21 PM MASTER BAKER Gender Identity Not on file Sexual Orientation Not on file documented as of this encounter Discharge Disposition Disposition Code Departure Means Destination Discharge to home or self care documented in this encounter Miscellaneous Notes * Result Encounter Note - Francisco Long MD - 01/03/2021 12:50 PM MASTER BAKER Okay to leave a message with patient or her hemoglobin is 8.5 stable repeat hemoglobin and hematocrit January 10 and diagnosis anemia GI bleed set up IV iron 300 mg of venofer weekly x3 doses diagnosis GI bleed iron deficiency anemia ER BAKER documented in this encounter Plan of Treatment Not on file documented as of this encounter Procedures Procedure Name Priority Date/Time Associated Diagnosis Comments CLINICAL PATHOLOGY REPORT Routine 01/03/2021 9:19 AM MASTER BAKER DIFFERENTIAL AUTO Routine 01/03/2021 9:1 9 AM MASTER BAKER Anemia, unspecified type IRON PROFILE W/ IBC Routine 01/03/2021 9 :19 AM MASTER BAKER Anemia, unspecified type CBC WITH AUTO DIFFERENTIAL Routine 01/03/2021 9:19 AM MASTER BAKER Anemia, unspecified type HEMOGLOBIN AND HEMATOCRIT Routine 01/03/2021 9:19 AM MASTER BAKER Anemia, unspecified type PROTEIN ELECTROPHORESIS, WITH REFLEX, SERUM Routine 01/03/2021 9:19 AM MASTER BAKER Anemia, unspecified type HEMOGLOBIN A1C Routine 01/03/2021 9:19 AM MASTER BAKER Controlled diabetes mellitus type 2 with complications, unspecified whether skilled nursing insulin use ([facility]) FOLATE Routine 01/03/2021 9:19 AM MASTER BAKER Anemia, unspecified type VITAMIN B12 Routine 01/03/2021 9:19 AM MASTER BAKER Anemia, unspecified type documented in this encounter Results * Clinical pathology report (01/03/2021 9:19 AM MASTER BAKER) Miscellaneous 01/03/2021 9:1 9 AM MASTER BAKER 01/04/2021 9:12 AM MASTER BAKER Narrative 01/04/2021 2:32 PM MASTER BAKER EPIC results best viewed via link to PDF [facility] Department of Pathology [address] [place] [address] Final Report Patient Name: ? SHAUNA GORDON Destiny Address: ??[address] [place] [address] Gender: ??F : ??1945 (Age: 75) Service: ??Laboratory Location: ??Lab Hospital #: ??[id number] Patient Type: ??[facility] EP ANCILLARY Taken: ??01/03/2021 Received: ?? 01/04/2021 Accessioned: ??01/04/2021 Physician(s): ??Francisco Long MD [facility] Specimen(s) Received A: Blood (serum) Serum Protein [...] determined by the Surgical Pathology Department at [facility] as part of an ongoing quality improvement coordinator (rn) program and in compliance with federally mandated [...] determined by the Surgical Pathology Department [facility]. ??It has not been cleared or approved by the U. S. Food and Drug Administration. REPORT IMAGES AND SCANNED DOCUMENTS, IF INCLUDED, ONLY VIEWABLE IN PDF VERSION OF REPORT Francisco Long MD LAB PATHOLOGY ORDERABLES Final Result * (ABNORMAL) Differential, auto (01/03/2021 9:19 AM MASTER BAKER) Neutrophil abs 4.7 1.7 - 6.5 K/cumm [...] 2018. Blood specimen (specimen) 01/03/2021 9:19 AM MASTER BAKER 01/03/2021 10:17 AM MASTER BAKER us Francisco Long MD LAB BLOOD ORDERABLES Final Res ult [facility] ([place]) [address] [facility] Department [place] [address] * (ABNORMAL) Hemoglobin and hematocrit (01/03/2021 9:19 AM MASTER BAKER) Hgb 8.5(L) 11.9 - 15.5 g/dL [facility] ([place]) Hct 28.8(L) 35.6 - 45.5 % [facility] ([place]) Blood specimen (specimen) 01/03/2021 9:19 AM MASTER BAKER 01/03/2021 10:17 AM MASTER BAKER Francisco Long MD LAB BLOOD ORDERABLES Final Res ult [facility] ([place]) [address] [facility] Department [place] [address] * (ABNORMAL) CBC with auto differential (01/03/2021 9:19 AM MASTER BAKER) WBC 5.6 3.8 - 9.9 K/cumm [facility] [...] ([place]) Blood specimen (specimen) 01/03/2021 9:19 AM MASTER BAKER 01/03/2021 10:17 AM MASTER BAKER Francisco Long MD LAB BLOOD ORDERABLES Final Res ult [facility] ([place]) 1 [place] [address] * Hemoglobin A1c (01/03/2021 9:19 AM MASTER BAKER) [facility] Hgb A1C 5.2 4.0 - 5.6 % [facility] ([place]) Estimated Average Glucose 103 mg/dL [facility] ([place]) Comment: The ADA recommends reporting an estimated Average Glucose (eAG) with all Hemoglobin A1c results using the equation derived from a study of 507 normal and diabetic adults. ??Minority populations were underrepresented and children were not included. ?? (Diabetes Care 31:5435-2761, 2008). ??The eAG is not equivalent to a fasting glucose. Blood specimen (specimen) 01/03/2021 9:19 AM MASTER BAKER 01/03/2021 10:17 AM MASTER BAKER Francisco Long MD LAB BLOOD ORDERABLES Final Res ult Performing Organization Address [facility] Co de Phone Number [facility] ([place]) 1 [facility] [place] [address] * Vitamin B12 (01/03/2021 9:19 AM MASTER BAKER) [facility] Vitamin B12 492 230 - 1,250 pg/mL [facility] ([place]) Comment:Testing performed by : [facility], [address] [place] [address], [address] Blood specimen (specimen) 01/03/2021 9:19 AM MASTER BAKER 01/03/2021 2:34 PM MASTER BAKER Francisco Long MD LAB BLOOD ORDERABLES Final Res ult [facility] ([place]) 1 [place] [address] * Folate (01/03/2021 9:19 AM MASTER BAKER) [facility] Folic acid 9.3 >=5.0 ng/mL [facility] ([place]) Comment:Testing performed by : [address], [address] Blood specimen (specimen) 01/03/2021 9:19 AM MASTER BAKER 01/03/2021 2:34 PM MASTER BAKER us Francisco Long MD LAB BLOOD ORDERABLES Final Res ult [facility] ([place] [address] [facility] Department [place] [address] * (ABNORMAL) Protein Electrophoresis, With Reflex, Serum (01/03/2021 9:19 AM MASTER BAKER) Protein, sr 5.7(L) 6.2 - 8.2 g/dL [facility] ([place]) Comment:Testing performed by : [address], [address] Albumin 3.5 3.2 - 5.0 g/dL [facility] ([place]) Comment:Testing performed by : [address], [address] Alpha-1 globulin 0.4 0.2 - 0.4 g/dL [facility] ([place]) Comment:Testing performed by : [address], [address] Alpha-2 globulin 0.6 0.5 - 1.0 g/dL [facility] ([place]) Comment:Testing performed by : [address] [address] Beta-1 globulin 0.5 0.3 - 0.6 g/dL [facility] ([place]) Comment:Testing performed by : [address] [address] Beta-2 globulin 0.2 0.2 - 0.6 g/dL [facility] ([place]) Comment:Testing performed by : [address], [address] Gamma globulin 0.5 0.5 - 1.7 g/dL [facility] ([place]) Comment:Testing performed by : [address], [address] SPEP interp See Cl Path Rpt [facility] ([place]) Comment:Testing performed by : [facility], [address] [place] [address], [place]., [address] Blood specimen (specimen) 01/03/2021 9:19 AM MASTER BAKER 01/03/2021 2:34 PM MASTER BAKER us Francisco Long MD LAB BLOOD ORDERABLES Final Res ult [facility] ([place]) 1 [facility] [employer] [place] [address] * Iron profile w/ IBC (01/03/2021 9:19 AM MASTER BAKER) Iron 125 35 - 145 mcg/dL [facility] ([place]) TIBC 366 250 - 400 mcg/dL [facility] ([place]) Transferrin saturation 34 20 - 50 % [facility] ([place]) Blood specimen (specimen) 01/03/2021 9:19 AM MASTER BAKER 01/03/2021 10:17 AM MASTER BAKER us Francisco Long MD LAB BLOOD ORDERABLES Final Res ult Performing Organization Address City/[facility]/ZIP Co de Phone Number [facility] ([place]) 1 [facility] [employer] [place] [address] documented in this encounter Visit Diagnoses Diagnosis Anemia, unspecified type Controlled diabetes mellitus type 2 with complications, unspecified whether exterminator insulin use (H[facility]) documented in this encounter Additional Health Concerns Infection Onset Date Last Indicated Resolved Time Respiratory Infection (TITI), contact + droplet Comment:Automatically added due to negative COVID-19 result. 12/29/2020 12/29/2020 01/12/2021 3:0 6 AM MASTER BAKER documented as of this encounter Care Teams Loading Shovel Oiler Relationship Specialty Start Date End Date Francisco Long MD PCP - General 02/23/17 05/15/22 Neil Ag MD PhD [address] [place] [address] Radiation Oncologist Radiation Oncology 12/17/18 [place] [address] [facility] [address] [place] [address] Referring Physician General Surgery 12/17/18 [place] [address] [facility] [address] [place] [address] Medical Oncologist/Signal Manager Medical Oncology 12/17/18 [place] [address] [facility] [address] [place] [address] Consulting Physician Gastroenterology 01/07/20 documented as of this encounter
--- OUTSIDE RECORDS SUMMARY | 2024-11-16 15:33 | XMS_ITS | Encounter Summary ---
Author Organization [facility] Address [address] [facility] [address] [place] [address] Care Team Providers Care Patent Paralegal Name Role Phone Francisco Long MD Primary Care Provider [phone] Neil Ag MD PhD Unavailable [phone] Ita estrada MD Unavailable Caron Mohan MD Unavailable Pebbles Felton MD Unavailable [phone] Encounter Details Date Type Department Care Team (Late st Contact Info) Description 01/18/2021 Telephone [place] [facility] [address] [facility] [address] [place] [address] Francisco Long MD [address] [place] [address] [address] [place] [address] Social History Tobacco Use Types [...] file Legal Sex Female 12:21 PM AGRICULTURAL PILOT Gender Identity Not on file Sexual Orientation Not on file documented as of this encounter Miscellaneous Notes * Result Encounter Note - Francisco Long MD - 02/01/2021 6:37 AM CST Okay to leave a message hemoglobin up to 10.3 good news CULTURAL PILOT * Telephone Encounter - Jami Pettit MA - 01/18/2021 12:04 PM AGRICULTURAL PILOT Patient aware, lab order placed for [facility] CULTURAL PILOT * Telephone Encounter - Jami Pettit MA - 01/18/2021 11:57 AM AGRICULTURAL PILOT ----- Message from Francisco Long MD sent at 01/18/2021 7:41 AM AGRICULTURAL PILOT ----- Okay to leave a message hemoglobin up to 9.5 repeat 2 weeks diagnosis anemia CULTURAL PILOT documented in this encounter Plan of Treatment Not on file documented as of this encounter Procedures Procedure Name Priority Date/Time Associated Diagnosis Comments HEMOGLOBIN Routine 01/31/2021 8:02 AM AGRICULTURAL PILOT Iron deficiency anemia due to chronic blood loss documented in this encounter Results * (ABNORMAL) Hemoglobin (01/31/2021 8:02 AM AGRICULTURAL PILOT) Hgb 10.3(L) 11.7 - 15.5 g/dL [facility] Blood specimen (specimen) 01/31/2021 8:02 AM AGRICULTURAL PILOT 01/31/2021 8:04 AM AGRICULTURAL PILOT us Francisco Long MD LAB BLOOD ORDERABLES Final Res ult [facility] [address] [id number] documented in this encounter Visit Diagnoses Diagnosis Iron deficiency anemia due to chronic blood loss- Primary Iron deficiency anemia secondary to blood loss (chronic) documented in this encounter Care Teams Patent Paralegal Relationship Specialty Start Date End Date Francisco Long MD PCP - General 02/23/17 05/15/22 Neil Ag MD PhD 6 [place] [address] Radiation Oncologist Radiation Oncology 12/17/18 [place] [address] [facility] [address] [place], [place] [address] Referring Physician General Surgery 12/17/18 [place] [address] [facility] [address] [place], [place] [address] Medical Oncologist/Vice President Of Development Medical Oncology 12/17/18 [place] [address] [facility] [address] [place] [address] Consulting Physician Gastroenterology 01/07/20 documented as of this encounter
--- OUTSIDE RECORDS SUMMARY | 2024-11-16 15:33 | XMS_ITS | Encounter Summary ---
Author Organization [facility] Medical Group Address [address] [facility] [address] [place] [address] Care Team Providers Care Gasoline Plant Operator Name Role Phone Francisco Long MD Primary Care Provider [phone] Neil Ag MD PhD Unavailable [phone] Ita estrada MD Unavailable Caron Mohan MD Unavailable [phone] Pebbles Felton MD Unavailable [phone] Encounter Details Date Type Department Care Team (Late st Contact Info) Description 01/03/2021 Telephone [facility] [place] [facility] [address] [facility] [address] [place] [address] Francisco Long MD [address] [place] [address] [address] [place] [address] Social History Tobacco Use Types [...] file Legal Sex Female 12:21 PM PRODUCTION CREW SUPERVISOR Gender Identity Not on file Sexual Orientation Not on file documented as of this encounter Miscellaneous Notes * Result Encounter Note - Francisco Long MD - 01/18/2021 7:41 AM CST Okay to leave a message hemoglobin up to 9.5 repeat 2 weeks diagnosis anemia UCTION CREW SUPERVISOR * Result Encounter Note - Francisco Long MD - 01/11/2021 7:14 AM CST Okay message hemoglobin 8.8 repeat hemoglobin January 17 and January 31 diagnosis anemia UCTION CREW SUPERVISOR * Telephone Encounter - Jami Pettit MA - 01/03/2021 5:08 PM PRODUCTION CREW SUPERVISOR Patient aware lab ordered, sent to referrals UCTION CREW SUPERVISOR * Telephone Encounter - Jami Pettit MA - 01/03/2021 4:51 PM PRODUCTION CREW SUPERVISOR ----- Message from Francisco Long MD sent at 01/03/2021 12:50 PM PRODUCTION CREW SUPERVISOR ----- Okay to leave a message with patient or her hemoglobin is 8.5 stable repeat hemoglobin and hematocrit January 10 and diagnosis anemia GI bleed set up IV iron 300 mg of venofer weekly x3 doses diagnosis GI bleed iron deficiency anemia UCTION CREW SUPERVISOR documented in this encounter Plan of Treatment Not on file documented as of this encounter Procedures Procedure Name Priority Date/Time Associated Diagnosis Comments HEMOGLOBIN Routine 01/17/2021 10:33 AM PRODUCTION CREW SUPERVISOR Acute gastrointestinal hemorrhage Iron deficiency anemia due to chronic blood loss HEMATOCRIT Routine 01/17/2021 10:33 AM PRODUCTION CREW SUPERVISOR Acute gastrointestinal hemorrhage Iron deficiency anemia due to chronic blood loss HEMOGLOBIN Routine 01/10/2021 8:28 AM PRODUCTION CREW SUPERVISOR Acute gastrointestinal hemorrhage Iron deficiency anemia due to chronic blood loss HEMATOCRIT Routine 01/10/2021 8:28 AM PRODUCTION CREW SUPERVISOR Acute gastrointestinal hemorrhage Iron deficiency anemia due to chronic blood loss documented in this encounter Results * (ABNORMAL) Hematocrit (01/17/2021 10:33 AM PRODUCTION CREW SUPERVISOR) Hct 32.3(L) 35.0 - 45.0 % [facility] Blood specimen (specimen) 01/17/2021 10:33 AM PRODUCTION CREW SUPERVISOR 01/17/2021 10:34 AM PRODUCTION CREW SUPERVISOR Francisco Long MD LAB BLOOD ORDERABLES Final Res ult [facility] [address] [place] [address] * (ABNORMAL) Hemoglobin (01/17/2021 10:33 AM PRODUCTION CREW SUPERVISOR) Hgb 9.5(L) 11.7 - 15.5 g/dL [facility] Blood specimen (specimen) 01/17/2021 10:33 AM PRODUCTION CREW SUPERVISOR 01/17/2021 10:34 AM PRODUCTION CREW SUPERVISOR Francisco Long MD LAB BLOOD ORDERABLES Final Res ult [facility] [address] [place] [address] * (ABNORMAL) Hematocrit (01/10/2021 8:28 AM PRODUCTION CREW SUPERVISOR) Hct 30.2(L) 35.0 - 45.0 % [facility] Blood specimen (specimen) 01/10/2021 8:28 AM PRODUCTION CREW SUPERVISOR 01/10/2021 8:28 AM PRODUCTION CREW SUPERVISOR Francisco Long MD LAB BLOOD ORDERABLES Final Res ult Performing Organization Address City/[facility] Co de Phone Number [facility] [address] [place] [address] * (ABNORMAL) Hemoglobin (01/10/2021 8:28 AM PRODUCTION CREW SUPERVISOR) Hgb 8.8(L) 11.7 - 15.5 g/dL [facility] Blood specimen (specimen) 01/10/2021 8:28 AM PRODUCTION CREW SUPERVISOR 01/10/2021 8:28 AM PRODUCTION CREW SUPERVISOR Francisco Long MD LAB BLOOD ORDERABLES Final Res ult Performing Organization Address [facility] Co de Phone Number [facility] [address] [place] [address] documented in this encounter Visit Diagnoses Diagnosis [...] result. 12/29/2020 12/29/2020 01/12/2021 3:0 6 AM PRODUCTION CREW SUPERVISOR documented as of this encounter Care Teams Gasoline Plant Operator Relationship Specialty Start Date End Date Francisco Long MD PCP - General 02/23/17 05/15/22 Neil Ag MD PhD [address] [place] [address] Radiation Oncologist Radiation Oncology 12/17/18 [place] [address] [address] Referring Physician General Surgery 12/17/18 [place] [address] [address] Medical Oncologist/Lap Checker Medical Oncology 12/17/18 [place] [address] [address] Consulting Physician Gastroenterology 01/07/20 documented as of this encounter
--- OUTSIDE RECORDS SUMMARY | 2024-11-16 15:33 | XMS_ITS | Encounter Summary ---
Author Organization [facility] Healthcare Address [address] [place] [address] Care Team Providers Care Bag Turner Name Role Phone Francisco Long MD Primary Care Provider [phone] Neil Ag MD PhD Unavailable [phone] Ita Vazquez MD Unavailable Caron Mohan MD Unavailable Pebbles Felton MD Unavailable [phone] Encounter Details Date Type Department Care Team (Late st Contact Info) Description 12/31/2020 6:25 AM INSPECTOR TIMERS [facility] 1 [place] [address] Francisco Long MD [address] [place], [place] [id number] Anemia, unspecified type; Dyspnea on exertion Discharge [...] on file Legal Sex Female 12:21 PM INSPECTOR TIMERS Gender Identity Not on file Sexual Orientation [...] 6:00 a.m. at the hospital diagnosis anemia ECTOR TIMERS documented in this encounter Plan of Treatment Not on file documented as of this encounter Procedures Procedure Name Priority Date/Time Associated Diagnosis Comments HEMOGLOBIN AND HEMATOCRIT Routine 12/31/2020 6:23 AM INSPECTOR TIMERS documented in this encounter Results * (ABNORMAL) Hemoglobin and hematocrit (12/31/2020 6:23 AM INSPECTOR TIMERS) Hgb 8.2(L) 11.9 - 15.5 g/dL [facility] Hct 27.2(L) 35.6 - 45.5 % [facility] Blood specimen (specimen) 12/31/2020 6:23 AM INSPECTOR TIMERS 12/31/2020 7:10 AM INSPECTOR TIMERS us Francisco Long MD LAB BLOOD ORDERABLES Final Res ult [facility] 1 [facility] [place] [address] documented in this encounter Visit Diagnoses Diagnosis Anemia, unspecified type Dyspnea on exertion Other dyspnea and respiratory abnormality documented in this encounter Additional Health Concerns Infection Onset Date Last Indicated Resolved Time Respiratory Infection (TITI), contact + droplet Comment:Automatically added due to negative COVID-19 result. 12/29/2020 12/29/2020 01/12/2021 3:0 6 AM INSPECTOR TIMERS documented as of this encounter Care Teams Bag Turner Relationship Specialty Start Date End Date Francisco Long MD PCP - General 02/23/17 05/15/22 Neil Ag MD PhD 6 [place] [address] Radiation Oncologist Radiation Oncology 12/17/18 [place] [address] [address] Referring Physician General Surgery 12/17/18 [place] [address] [facility] [address] [place] [address] Medical Oncologist/Office Support Specialist Medical Oncology 12/17/18 [place] [address] [address] Consulting Physician Gastroenterology 01/07/20 documented as of this encounter
--- OUTSIDE RECORDS SUMMARY | 2024-11-16 15:33 | XMS_ITS | Encounter Summary ---
Author Organization [facility] Healthcare Address [address] [place] [address] Care Team Providers Care Tire Service Supervisor Name Role Phone Francisco Long MD Primary Care Provider [phone] Neil Ag MD PhD Unavailable [phone] Ita estrada MD Unavailable Caron Mohan MD Unavailable Pebbles Felton MD Unavailable [phone] Reason for Referral * Diagnostic Imaging (Routine) - Closed Specialty Diagnoses / Procedures Referred By Contac t Referred To Contact Diagnoses Dyspnea on exertion Procedures XR Chest Pa Lateral 2 Vw Alhaji Mendez NP Phone: tel: fax: [address] [address] Referral ID Status Reason Start Date Expiration Date Visits Re quested Visits Authorized [id number] Closed 12/29/2020 01/28/2022 1 1 ERCIAL SINGER Reason for Visit * Diagnostic Imaging (Routine) - Closed Specialty Diagnoses / Procedures Referred By Contac t Referred To Contact Diagnoses Dyspnea on exertion Procedures XR Chest Pa Lateral 2 Vw Alhaji Mendez NP Phone: tel: fax: [address] [address] Referral ID Status Reason Start Date Expiration Date Visits Re quested Visits Authorized [id number] Closed 12/29/2020 01/28/2022 1 1 Encounter Details Date Type Department Care Team (Latest Contact Info) Description 12/29/2020 11:30 AM COMMERCIAL SINGER - 12/29/2020 11:59 PM COMMERCIAL SINGER Hospital Encounter [facility] 1 [place] [address] Francisco Long MD [address] [facility] [address] [place] [address] Alhaji Mendez NP [address] [place] [address] Dyspnea on exertion Discharge Disposition: Discharge to [...] file Legal Sex Female 12:21 PM COMMERCIAL SINGER Gender Identity Not on file Sexual Orientation [...] Read Routine (OP Routine) 12/29/2020 11:39 AM COMMERCIAL SINGER Dyspnea on exertion documented in this encounter Results * XR Chest Pa Lateral 2 Vw (12/29/2020 11:39 AM COMMERCIAL SINGER) Anatomical Region Laterality Modality Body, Chest N/A Computed Radiogr aphy 12/29/2020 11:4 5 AM COMMERCIAL SINGER Impressions 12/29/2020 11:46 AM COMMERCIAL SINGER No acute findings. ??Large hiatal hernia. Electronically signed by: Saqib Potter M.D. Narrative 12/29/2020 11:46 AM COMMERCIAL SINGER EXAMINATION: XR CHEST PA LATERAL 2 VIEWS [...] by: Saqib Potter M.D. us Alhaji Mendez LIFE INSURANCE SPECIALIST IMG XR PROCEDURES Final Re sult documented in this encounter Visit Diagnoses Diagnosis Dyspnea on exertion Other dyspnea and respiratory abnormality documented in this encounter Additional Health Concerns Infection Onset Date Last Indicated Resolved Time Respiratory Infection (TITI), contact + droplet Comment:Automatically added due to negative COVID-19 result. 12/29/2020 12/29/2020 01/12/2021 3:0 6 AM COMMERCIAL SINGER documented as of this encounter Care Teams Tire Service Supervisor Relationship Specialty Start Date End Date Francisco Long MD PCP - General 02/23/17 05/15/22 Neil Ag MD PhD 6 [place] [address] Radiation Oncologist Radiation Oncology 12/17/18 [place] [address] [address] [facility] [address] [place] [address] Referring Physician General Surgery 12/17/18 [place] [address] [facility] [address] [place] [address] Medical Oncologist/Glaze Grinder Medical Oncology 12/17/18 [place] [address] [address] [facility] [address] [place] [address] Consulting Physician Gastroenterology 01/07/20 documented as of this encounter
--- OUTSIDE RECORDS SUMMARY | 2024-11-16 15:33 | XMS_ITS | Encounter Summary ---
Author Organization [facility] Medical Group Address [address] [facility] [address] [place] [address] Care Team Providers Care Freight Receiver Name Role Phone Francisco Long MD Primary Care Provider [phone] Neil Ag MD PhD Unavailable [phone] Ita estrada MD Unavailable Caron Mohan MD Unavailable [phone] Pebbles Felton MD Unavailable [phone] Encounter Details Date Type Department Care Team (Late st Contact Info) Description 01/07/2021 Orders Only [facility] Gastroenterology at [address] [place] [address] Pebbles Felton MD [address] [place] [address] [address] [place] [address] Iron deficiency anemia, unspecified iron deficiency anemia [...] on file Legal Sex Female 12:21 PM PROFESSOR OF EXERCISE SCIENCE Gender Identity Not on file Sexual Orientation [...] result. 12/29/2020 12/29/2020 01/12/2021 3:0 6 AM PROFESSOR OF EXERCISE SCIENCE documented as of this encounter Care Teams Freight Receiver Relationship Specialty Start Date End Date Francisco Long MD PCP - General 02/23/17 05/15/22 Neil Ag MD PhD 6 [place] [address] Radiation Oncologist Radiation Oncology 12/17/18 [place] [address] [facility] 120 [facility], [place] [address] Referring Physician General Surgery 12/17/18 [place] [address] [facility] [address] [place] [id number] Medical Oncologist/Office Professionals Medical Oncology 12/17/18 [place] [address] [facility] [address] [place] [address] Consulting Physician Gastroenterology 01/07/20 documented as of this encounter
--- OUTSIDE RECORDS SUMMARY | 2024-11-16 15:33 | XMS_ITS | Encounter Summary ---
Author Organization [facility] Healthcare Address [address] [place] [address] Care Team Providers Care Supervisor Volunteer Services Name Role Phone Francisco Long MD Primary Care Provider Neil Ag MD PhD Unavailable [phone] Ita Vazquez MD Unavailable Caron Mohan MD Unavailable Pebbles Felton MD Unavailable [phone] Encounter Details Date Type Department Care Team (Late st Contact Info) Description 01/05/2021 12:41 PM SAP PLANT MAINTENANCE CONSULTANT Anesthesia Event [facility] 1 [place] [address] [place] [address] [address] Gabe Tian MD [address] [place] [address] Anesthesia Record Procedure Summary Procedure Name Responsible [...] on file Legal Sex Female 12:21 PM SAP PLANT MAINTENANCE CONSULTANT Gender Identity Not on file Sexual Orientation Not on file documented as of this encounter OR Notes * Anesthesia Postprocedure Evaluation - Teresita Roger MD - 01/05/2021 1:15 PM CST Patient: Jolene Cedillo Procedure Summary Date: 01/05/21 Room / Location: [facility] ENDOSCOPY ROOM 1 / [facility] ENDOSCOPY Anesthesia Start: 1241 Anesthesia [...] acceptable Pt is: normothermic Nausea/Vomiting status: none PLANT MAINTENANCE CONSULTANT * Anesthesia Preprocedure Evaluation - Teresiat Roger MD - 01/05/2021 11:46 AM CST [...] Medication protocol when under care of a DATA ENTRY ASSOCIATE Planned anesthesia: General/TIVA Induction: Induction: intravenous. Postoperative Plan: No plan for postoperative opioid use. No postoperative mechanical ventilation intended. Patient's planned disposition post procedure is Outpatient. Informed Consent: Discussed plan with attending and DATA ENTRY ASSOCIATE. Anesthesia plan and risks discussed with patient. Consent and Attending signature: I and/or my designee have discussed the anesthesia plan, benefits, possible alternatives, parental presence at time of induction (if indicated), and clinically relevant risks that may include dental injury, unintentional awareness, and/or other complications. The patient and/or parent/legal guardian understand, and agree to proceed. All questions answered. PLANT MAINTENANCE CONSULTANT PLANT MAINTENANCE CONSULTANT documented in this encounter Plan of [...] ArrhythmiasIndications:Ventricula r Arrhythmias Given 01/05/2021 12:44 PM SAP PLANT MAINTENANCE CONSULTANT 50 mg propofoL (DIPRIVAN) IV intravenous, As needed, Starting on Sun01/05/21 at 1244, Anesthesia Intra-op Given 01/05/2021 12:44 PM SAP PLANT MAINTENANCE CONSULTANT 100 mg sodium chloride 0.9% infusion 125 mL/hr, intravenous, Continuous, Starting on Sun01/05/21 at 1200, Recovery (GI) New Bag 01/05/2021 12:40 PM SAP PLANT MAINTENANCE CONSULTANT documented in this encounter Additional Health Concerns Infection Onset Date Last Indicated Resolved Time Respiratory Infection (TITI), contact + droplet Comment:Automatically added due to negative COVID-19 result. 12/29/2020 12/29/2020 01/12/2021 3:0 6 AM SAP PLANT MAINTENANCE CONSULTANT documented as of this encounter Care Teams Supervisor Volunteer Services Relationship Specialty Start Date End Date Francisco Long MD PCP - General 02/23/17 05/15/22 Neil Ag MD PhD [address] [place] [address] Radiation Oncologist Radiation Oncology 12/17/18 [place] [address] [facility] 120 [place] [address] Referring Physician General Surgery 12/17/18 [place] [address] [facility] [address] [place] [address] Medical Oncologist/Retail Sales Manager Medical Oncology 12/17/18 [place] [address] [facility] [address] [place] [address] Consulting Physician Gastroenterology 01/07/20 documented as of this encounter
--- OUTSIDE RECORDS SUMMARY | 2024-11-16 15:33 | XMS_ITS | Encounter Summary ---
Author Organization [facility] Medical Group Address [address] [facility] [address] [place] [address] Care Team Providers Care Inspector Canvas Products Name Role Phone Francisco Long MD Primary Care Provider [phone] Neil Ag MD PhD Unavailable [phone] Ita estrada MD Unavailable Caron Mohan MD Unavailable [phone] Pebbles Felton MD Unavailable [phone] Encounter Details Date Type Department Care Team (Late st Contact Info) Description 01/11/2021 Telephone [facility] [address] [facility] [address] [place] [address] Francisco Long MD [address] [place] [address] [address] [place] [address] Social History Tobacco Use Types [...] on file Legal Sex Female 12:21 PM APPAREL MANAGER Gender Identity Not on file Sexual Orientation Not on file documented as of this encounter Miscellaneous Notes * Result Encounter Note - Francisco Long MD - 04/07/2021 6:02 AM CDT Hemoglobin 14.4 okay to leave a message great news * Telephone Encounter - Jami Pettit MA - 01/11/2021 8:38 AM APPAREL MANAGER patient aware, order placed for [facility] REL MANAGER * Telephone Encounter - Jami Pettit MA - 01/11/2021 8:37 AM APPAREL MANAGER ----- Message from Francisco Long MD sent at 01/11/2021 7:14 AM APPAREL MANAGER ----- Okay message hemoglobin 8.8 repeat hemoglobin January 17 and January 31 diagnosis anemia REL MANAGER documented in this encounter Plan of Treatment Not on file documented as of this encounter Procedures Procedure Name Priority Date/Time Associated Diagnosis Comments HEMOGLOBIN Routine 04/06/2021 8:28 AM CDT Iron deficiency anemia due to chronic blood loss documented in this encounter Results * Hemoglobin (04/06/2021 8:28 AM CDT) Hgb 14.4 11.7 - 15.5 g/dL [facility] Blood specimen (specimen) 04/06/2021 8:28 AM CDT 04/06/2021 8:29 AM CDT us Francisco Long MD LAB BLOOD ORDERABLES Final Res ult [facility] [address] [address] [phone] documented in this encounter Visit Diagnoses Diagnosis Iron deficiency anemia due to chronic blood loss- Primary Iron deficiency anemia secondary to blood loss (chronic) documented in this encounter Additional Health Concerns Infection Onset Date Last Indicated Resolved Time Respiratory Infection (TITI), contact + droplet Comment:Automatically added due to negative COVID-19 result. 12/29/2020 12/29/2020 01/12/2021 3:0 6 AM APPAREL MANAGER documented as of this encounter Care Teams Inspector Canvas Products Relationship Specialty Start Date End Date Francisco Long MD PCP - General 02/23/17 05/15/22 Neil Ag MD PhD 6 [place] [address] Radiation Oncologist Radiation Oncology 12/17/18 [place] [address] [facility] 120 [place] [address] Referring Physician General Surgery 12/17/18 [place] [address] [facility] 120 [place] [address] Medical Oncologist/Inside Barrel Polisher Medical Oncology 12/17/18 [place] [address] [facility] 120 [place] [address] Consulting Physician Gastroenterology 01/07/20 documented as of this encounter
--- OUTSIDE RECORDS SUMMARY | 2024-11-16 15:33 | XMS_ITS | Encounter Summary ---
Author Organization [facility] Medical Group Address [address] [facility] [address] [place] [address] Care Team Providers Care Agricultural Economist Name Role Phone Francisco Long MD Primary Care Provider Neil Ag MD PhD Unavailable [phone] Ita Vazquez MD Unavailable Caron Mohan MD Unavailable Pebbles Felton MD Unavailable [phone] Encounter Details Date Type Department Care Team (Late st Contact Info) Description 12/30/2020 Telephone [place] [facility] [address] [facility] [address] [place] [address] Francisco Long MD [address] [place] [address] [address] [place] [address] Social History Tobacco Use Types [...] file Legal Sex Female 12:21 PM SUPERVISOR INSPECTION DEPARTMENT Gender Identity Not on file Sexual [...] dose Eliquis recheck hemoglobin in the morning RVISOR INSPECTION DEPARTMENT * Telephone Encounter - Latoya Cotton MA - 12/30/2020 3:56 PM SUPERVISOR INSPECTION DEPARTMENT jr RVISOR INSPECTION DEPARTMENT * Telephone Encounter - Yuli Lopez - 12/30/2020 3:49 PM CST Carvedilol 6.25 mg - pt takes one tablet twice daily. Pt says she takes this w/her Eloquis. Pt says Dr Long asked her to call and give him the information on her Carvedilol. Please advise. RVISOR INSPECTION DEPARTMENT documented in this encounter Plan of Treatment Not on file documented as of this encounter Visit Diagnoses Not on filedocumented in this encounter Additional Health Concerns Infection Onset Date Last Indicated Resolved Time Respiratory Infection (TITI), contact + droplet Comment:Automatically added due to negative COVID-19 result. 12/29/2020 12/29/2020 01/12/2021 3:0 6 AM SUPERVISOR INSPECTION DEPARTMENT documented as of this encounter Care Teams Agricultural Economist Relationship Specialty Start Date End Date Francisco Long MD PCP - General 02/23/17 05/15/22 Neil Ag MD PhD [address] [place] [address] Radiation Oncologist Radiation Oncology 12/17/18 [place] [address] [facility] [address] [place], [place] [address] Referring Physician General Surgery 12/17/18 [place] [address] [facility] [address] [place], [place] [id number] Medical Oncologist/Marketing Database Consultant Medical Oncology 12/17/18 [place] [address] [facility] [address] [place] [place] [address] Consulting Physician Gastroenterology 01/07/20 documented as of this encounter
--- OUTSIDE RECORDS SUMMARY | 2024-11-16 15:33 | XMS_ITS | Encounter Summary ---
Author Organization [facility] Address [address] [place] [address] Care Team Providers Care Cyber Legal Advisor Name Role Phone Francisco Long MD Primary Care Provider [phone] Neil Ag MD PhD Unavailable [phone] Ita estrada MD Unavailable Caron Mohan MD Unavailable Pebbles Felton MD Unavailable [phone] Encounter Details Date Type Department Care Team (Late st Contact Info) Description 12/30/2020 Orders Only [place] [facility] [address] [facility] [address] [place] [address] Francisco Long MD [address] [place] [address] [address] [place] [address] Anemia, unspecified type (Primary Dx); [...] on file Legal Sex Female 12:21 PM INVESTMENT ACCOUNTING CLERK Gender Identity Not on file Sexual Orientation Not on file documented as of this encounter Plan of Treatment Not on file documented as of this encounter Results * (ABNORMAL) Iron profile w/ IBC (12/30/2020 2:42 PM INVESTMENT ACCOUNTING CLERK) Iron 22(L) 35 - 145 mcg/dL [facility] ([place]) TIBC 399 250 - 400 mcg/dL [facility] ([place]) Transferrin saturation 6(L) 20 - 50 % [facility] ([place]) Blood specimen (specimen) 12/30/2020 2:42 PM INVESTMENT ACCOUNTING CLERK 12/30/2020 2:48 PM INVESTMENT ACCOUNTING CLERK Narrative [facility] ([place]) - 12/30/2020 3:11 PM INVESTMENT ACCOUNTING CLERK STAT today Francisco Long MD LAB BLOOD ORDERABLES Final Res ult Performing Organization Address [facility] Co de Phone Number ME[facility]AN THOM[facility] ([place]) 1 [facility] Department [place] [address] * (ABNORMAL) Hemoglobin (12/30/2020 2:42 PM INVESTMENT ACCOUNTING CLERK) Hgb 8.6(L) 11.9 - 15.5 g/dL [facility] ([place]) Blood specimen (specimen) 12/30/2020 2:42 PM INVESTMENT ACCOUNTING CLERK 12/30/2020 2:49 PM INVESTMENT ACCOUNTING CLERK Narrative [facility] ([place]) - 12/30/2020 2:51 PM INVESTMENT ACCOUNTING CLERK STAT today Francisco Long MD LAB BLOOD ORDERABLES Final Res ult [facility] [address] Department [place] [address] documented in this encounter Visit Diagnoses Diagnosis Anemia, unspecified type- Primary Dyspnea on exertion Other dyspnea and respiratory abnormality Anemia, unspecified type Dyspnea on exertion Other dyspnea and respiratory abnormality documented in this encounter Additional Health Concerns Infection Onset Date Last Indicated Resolved Time Respiratory Infection (TITI), contact + droplet Comment:Automatically added due to negative COVID-19 result. 12/29/2020 12/29/2020 01/12/2021 3:0 6 AM INVESTMENT ACCOUNTING CLERK documented as of this encounter Care Teams Cyber Legal Advisor Relationship Specialty Start Date End Date Francisco Long MD PCP - General 02/23/17 05/15/22 Neil Ag MD PhD 6 [place] [address] Radiation Oncologist Radiation Oncology 12/17/18 [place] [address] [facility] [address] [address] [facility] [place] [id number] Referring Physician General Surgery 12/17/18 [place] [address] [facility] [address] [address] [facility] [place] [id number] Medical Oncologist/Hand Weaver Medical Oncology 12/17/18 [place] [address] [facility] [address] [address] [facility], [place] [id number] Consulting Physician Gastroenterology 01/07/20 documented as of this encounter
--- OUTSIDE RECORDS SUMMARY | 2024-11-16 15:33 | XMS_ITS | Encounter Summary ---
Author Organization [facility] Medical [facility] Address [address] [facility] [address] [place] [address] Care Team Providers Care Straight Knife Machine Cutter Name Role Phone Francisco Long MD Primary Care Provider [phone] Neil Ag MD PhD Unavailable [phone] Ita estrada MD Unavailable Caron Mohan MD Unavailable Pebbles Felton MD Unavailable [phone] Encounter Details Date Type Department Care Team (Late st Contact Info) Description 01/05/2021 Telephone [place] [facility] 2 [facility] [address] [place] [address] Francisco Long MD [address] [place] [address] [address] [place] [address] Social History Tobacco Use Types [...] on file Legal Sex Female 12:21 PM IMAGING ASSISTANT Gender Identity Not on file Sexual Orientation Not on file documented as of this encounter Miscellaneous Notes * Telephone Encounter - Francisco Long MD - 01/06/2021 8:09 AM CST I talked to the patient on the telephone regarding the results of her recent EGD she is going to talk to her surgeon that she seen next week at [facility] regarding his specialist does the hiatal hernia surgery she like to have it done at [facility] if possible she wanted to push [...] iron infusion at 10:30 a.m. that day ING ASSISTANT * Telephone Encounter - Latoya Cotton MA - 01/05/2021 4:23 PM IMAGING ASSISTANT jr ING ASSISTANT * Telephone Encounter - Yuli Lopez - 01/05/2021 4:20 PM CST Pt called for results of her egd she had done today by Dr Felton. She would like to know if Dr Long has seen the results and would he call her if possible. Please advise. ING ASSISTANT documented in this encounter Plan of Treatment Not on file documented as of this encounter Visit Diagnoses Not on filedocumented in this encounter Additional Health Concerns Infection Onset Date Last Indicated Resolved Time Respiratory Infection (TITI), contact + droplet Comment:Automatically added due to negative COVID-19 result. 12/29/2020 12/29/2020 01/12/2021 3:0 6 AM IMAGING ASSISTANT documented as of this encounter Care Teams Straight Knife Machine Cutter Relationship Specialty Start Date End Date Francisco Long MD PCP - General 02/23/17 05/15/22 Neil Ag MD PhD 6 [place] [id number] Radiation Oncologist Radiation Oncology 12/17/18 [place] [address] [facility] 120 [facility] [place] [id number] Referring Physician General Surgery 12/17/18 [place] [address] [facility] 120 [facility] [address] Medical Oncologist/Fire Systems Inspector Medical Oncology 12/17/18 [place] [address] [facility] 120 [facility] [address] Consulting Physician Gastroenterology 01/07/20 documented as of this encounter
--- OUTSIDE RECORDS SUMMARY | 2024-11-16 15:33 | XMS_ITS | Encounter Summary ---
Author Organization [facility] Medical [facility] Address [address] [facility] [address] [place] [address] Care Team Providers Care Upholstery Cutter Name Role Phone Francisco Long MD Primary Care Provider [phone] Neil Ag MD PhD Unavailable [phone] Ita estrada MD Unavailable Caron Mohan MD Unavailable Pebbles Felton MD Unavailable [phone] Encounter Details Date Type Department Care Team (Late st Contact Info) Description 01/21/2021 Telephone [place] [facility] [address] [facility] [address] [place] [address] Francisco Long MD [address] [place] [address] [address] [place] [address] Social History Tobacco Use Types [...] on file Legal Sex Female 12:21 PM CUSTOMER SERVICE REPRESENTATIVE Gender Identity Not on file Sexual Orientation Not on file documented as of this encounter Miscellaneous Notes * Telephone Encounter - Jmai Pettit MA - 02/03/2021 2:18 PM CUSTOMER SERVICE REPRESENTATIVE Report placed in Dr. Long's in basket for review OMER SERVICE REPRESENTATIVE * Telephone Encounter - Jami Pettit MA - 02/03/2021 9:59 AM CUSTOMER SERVICE REPRESENTATIVE Spoke with Debi at Dr Felton's office , she will obtain report on the capsule procedure and faxit to our office OMER SERVICE REPRESENTATIVE * Telephone Encounter - Francisco Long MD - 02/02/2021 4:43 PM CST Please contact GI office tomorrow and see if they have report regarding her capsule endoscopy done a few weeks ago OMER SERVICE REPRESENTATIVE * Telephone Encounter - Latoya Cotton MA - 01/25/2021 12:46 PM CUSTOMER SERVICE REPRESENTATIVE OMER SERVICE REPRESENTATIVE * Telephone Encounter - Katie Apple - [...] she hasn't received any results. Please call [phone] OMER SERVICE REPRESENTATIVE * Telephone Encounter - Anita White MA - 01/21/2021 12:45 PM CST JR OMER SERVICE REPRESENTATIVE * Telephone Encounter - Yuli Lopez - 01/21/2021 12:17 PM CST Pt called to ask Dr Long to call Dr Chun at [phone]. Regarding the pt's RA. Methotrexate. Dr Chun thinks the pt should be taking the Methotrexate and wants to know why Dr Long wants her to stop it. Please advise. OMER SERVICE REPRESENTATIVE documented in this encounter Plan of Treatment Not on file documented as of this encounter Visit Diagnoses Not on filedocumented in this encounter Care Teams Upholstery Cutter Relationship Specialty Start Date End Date Francisco Long MD PCP - General 02/23/17 05/15/22 Neil Ag MD PhD 6 [place] [address] Radiation Oncologist Radiation Oncology 12/17/18 [place] [address] [address] [place] [address] Referring Physician General Surgery 12/17/18 [place] [address] [address] [facility], [place] [id number] Medical Oncologist/Oncology Transplant Network Manager Medical Oncology 12/17/18 [place] [address] [address] [facility] [address] [address] Consulting Physician Gastroenterology 01/07/20 documented as of this encounter
--- OUTSIDE RECORDS SUMMARY | 2024-11-16 15:33 | XMS_ITS | Encounter Summary ---
Author Organization [facility] Healthcare Address [address] [place] [address] Care Team Providers Care Webbing Supervisor Name Role Phone Francisco Long MD Primary Care Provider [phone] Neil Ag MD PhD Unavailable [phone] Ita estrada MD Unavailable Caron Mohan MD Unavailable Pebbles Felton MD Unavailable [phone] Encounter Details Date Type Department Care Team (Late st Contact Info) Description 12/29/2020 11:25 AM SCREEN PRINTER Lab [address] [address] Dyspnea on exertion Social History Tobacco Use [...] on file Legal Sex Female 12:21 PM SCREEN PRINTER Gender Identity Not on file Sexual Orientation Not on file documented as of this encounter Plan of Treatment Not on file documented as of this encounter Procedures Procedure Name Priority Date/Time Associated Diagnosis Comments EGFR Routine 12/29/2020 11:20 AM SCREEN PRINTER Dyspnea on exertion DIFFERENTIAL AUTO Routine 12/29/2020 11: 20 AM SCREEN PRINTER Dyspnea on exertion PRO B-TYPE NATRIURETIC PEPTIDE Routine 12/29/2020 11:20 AM SCREEN PRINTER Dyspnea on exertion CBC WITH AUTO DIFFERENTIAL Routine 12/29/2020 11:20 AM SCREEN PRINTER Dyspnea on exertion BASIC METABOLIC PANEL Routine 12/29/2020 11:20 AM SCREEN PRINTER Dyspnea on exertion documented in this encounter Results * eGFR (12/29/2020 11:20 AM SCREEN PRINTER) eGFR 75 mL/min/1.7 3 m2 ME[facility] THOMAS [...] 2020 Blood specimen (specimen) 12/29/2020 11:20 AM SCREEN PRINTER 12/29/2020 12:40 PM SCREEN PRINTER Marianne Mendez SPORTS BOOKMAKER LAB BLOOD ORDERABLES Final Result [facility] ([place]) 1 [facility] Department [place] [address] * (ABNORMAL) Differential, auto (12/29/2020 11:20 AM SCREEN PRINTER) Neutrophil abs 5.7 1.7 - 6.5 K/cumm [...] 2018. Blood specimen (specimen) 12/29/2020 11:20 AM SCREEN PRINTER 12/29/2020 12:40 PM SCREEN PRINTER Marianne Mendez SPORTS BOOKMAKER LAB BLOOD ORDERABLES Final Result [facility] ([place]) 1 [facility] Department [place] [address] * (ABNORMAL) CBC with auto differential (12/29/2020 11:20 AM SCREEN PRINTER) WBC 6.8 3.8 - 9.9 K/cumm C[facility]ER [...] ([place]) Blood specimen (specimen) 12/29/2020 11:20 AM SCREEN PRINTER 12/29/2020 12:40 PM SCREEN PRINTER Marianne Mendez NP LAB BLOOD ORDERABLES Final Result [facility] ([place]) 1 [facility] Department [place] [address] * (ABNORMAL) Basic metabolic panel (12/29/2020 11:20 AM SCREEN PRINTER) Sodium 140 135 - 145 mmol/L [facility] [...] ([place]) Blood specimen (specimen) 12/29/2020 11:20 AM SCREEN PRINTER 12/29/2020 12:40 PM SCREEN PRINTER us Marianne Mendez SPORTS BOOKMAKER LAB BLOOD ORDERABLES Final Result [facility] THOM[facility] ([place]) 1 [facility] [place] [address] * Pro B-type natriuretic peptide (12/29/2020 11:20 AM SCREEN PRINTER) NT-proBNP 200 <=300 pg/mL [facility] ([place]) [...] 2018. Blood specimen (specimen) 12/29/2020 11:20 AM SCREEN PRINTER 12/29/2020 3:30 PM SCREEN PRINTER us Marianne Mendez SPORTS BOOKMAKER LAB BLOOD ORDERABLES Final Result [facility] ([place]) 1 [facility] Department [place] [address] documented in this encounter Visit Diagnoses Diagnosis Dyspnea on exertion Other dyspnea and respiratory abnormality documented in this encounter Additional Health Concerns Infection Onset Date Last Indicated Resolved Time Respiratory Infection (TITI), contact + droplet Comment:Automatically added due to negative COVID-19 result. 12/29/2020 12/29/2020 01/12/2021 3:0 6 AM SCREEN PRINTER documented as of this encounter Care Teams Webbing Supervisor Relationship Specialty Start Date End Date Francisco Long MD PCP - General 02/23/17 05/15/22 Neil Ag MD PhD 6 [place] [address] Radiation Oncologist Radiation Oncology 12/17/18 [place] [address] [address] [facility] [address] [place] [id number] Referring Physician General Surgery 12/17/18 [place] [address] [address] [facility] [address] [place] [id number] Medical Oncologist/General Manager Farm Medical Oncology 12/17/18 [place] [address] [address] [address] [address] [address] Consulting Physician Gastroenterology 01/07/20 documented as of this encounter
--- OUTSIDE RECORDS SUMMARY | 2024-11-16 15:33 | XMS_ITS | Encounter Summary ---
Author Organization [facility] Healthcare Address [address] [place] [address] Care Team Providers Care Plastic Printer Name Role Phone Francisco Long MD Primary Care Provider Neil Ag MD PhD Unavailable Ita estrada MD Unavailable Caron Mohan MD Unavailable [phone] Pebbles Felton MD Unavailable [phone] Encounter Details Date Type Department Care Team (Latest Contact Info) Description 01/05/2021 11:02 AM BANKING SERVICES ADVISOR - 01/05/2021 2:18 PM [facility] Hospital Encounter [facility] Center 1 [place] [address] Pebbles Felton MD [address] [place] [address] Acute upper GI bleed Discharge Disposition: Discharge [...] on file Legal Sex Female 12:21 PM BANKING SERVICES ADVISOR Gender Identity Not on file Sexual Orientation Not on file documented as of this encounter Last Filed Vital Signs Vital Sign Reading Time Taken Comments Blood Pressure 121/80 01/05/2021 1:25 PM BANKING SERVICES ADVISOR Pulse 65 01/05/2021 1:25 PM BANKING SERVICES ADVISOR Temperature 36.8 ??C (98.2 ??F) 01/05/2021 11:[address] Respiratory Rate 20 01/05/2021 1:25 PM BANKING SERVICES ADVISOR Oxygen Saturation 100% 01/05/2021 1:25 PM BANKING SERVICES ADVISOR Inhaled Oxygen Concentration - - Weight 85.3 kg (188 lb) 01/05/2021 11:31 AM BANKING SERVICES ADVISOR Height 170.2 cm (5' 7 ) 01/05/2021 11:31 AM BANKING SERVICES ADVISOR Body Mass Index 29.44 01/05/2021 11:31 AM BANKING SERVICES ADVISOR documented in this encounter Discharge Diagnoses Diagnosis [...] - GASTRO-ESOPHAGEAL REFLUX DISEASE WITHOUT ESOPHAGITIS Other soccer coach (current) drug therapy - OTHER NURSE STAFF INDUSTRIAL (CURRENT) DRUG THERAPY sheet sorter (current) use of anticoagulants - NURSE STAFF INDUSTRIAL (CURRENT) USE OF ANTICOAGULANTS Long-term (current) use [...] (40 mg total) by mouth daily 30 01/05/2021 at Unknown time ??? rosuvastatin (CRESTOR) [...] GI PLAN/RECOMMENDATIONS: 1. EGD Pebbles Felton MD ING SERVICES ADVISOR documented in this encounter Procedure Notes * Pebbles Felton MD - 01/05/2021 12:36 PM CSTAssociated Order(s): EGD [facility] Patient Name: Jolene Cedillo Procedure Date: 01/05/2021 12:36 PM Date of : 1945 Admit Type: Outpatient Age: 75 Gender: Female Attending MD: Pebbles Felton M.D. Room: [facility] RO[facility] 1 Note Status: Finalized Patient [...] passed under direct vision. The Endoscope [id number]-[id number] was introduced through the mouth, and advanced [...] 12:36 PM Procedure Code(s): --- Professional --- 20989, Esophagogastroduodenoscopy, flexible, transoral; with biopsy, single or multiple Diagnosis Code(s): --- Professional --- K31.89, Other diseases of stomach and duodenum K44.9, Diaphragmatic hernia without obstruction or gangrene D50.9, Iron deficiency anemia, unspecified CPT copyright 2019 [employer]. All rights reserved. The codes documented in this report are preliminary and upon medical receptionist medical assistant review may be revised to meet current compliance requirements. Recognized by the [place] [employer] for promoting quality in endoscopy ING SERVICES ADVISOR documented in this encounter Miscellaneous Notes * Perioperative Nursing Note - Zulema Patel RN - 01/05/2021 1:[address] Felton in to discuss test results with patient and family. Patient to contact him if they decide to have surgery to fix hernia. Patient to be scheduled to for capsule endoscopy. ING SERVICES ADVISOR documented in this encounter Plan of Treatment Not on file documented as of this encounter Procedures Procedure Name Priority Date/Time Associated Diagnosis Comments SURGICAL PATHOLOGY STAT 01/05/2021 3:40 PM BANKING SERVICES ADVISOR Acute upper GI bleed H. PYLORI UREASE SCREEN (RADHA TEST) STAT 01/05/2021 12:45 PM BANKING SERVICES ADVISOR EGD 01/05/2021 12:36 PM BANKING SERVICES ADVISOR ESOPHAGOGASTRODUODENOSCOPY BIOPSY 01/05/2021 12:35 PM BANKING SERVICES ADVISOR Acute upper GI bleed documented in this encounter Results * Surgical pathology (01/05/2021 3:40 PM BANKING SERVICES ADVISOR) Tissue (Small bowel, biopsy) 01/05/2021 12:50 PM BANKING SERVICES ADVISOR Narrative PATHOLOGY [facility] ([place]) - 01/07/2021 9:43 AM BANKING SERVICES ADVISOR [facility] results best viewed via link to PDF [facility] Department of Pathology [address] [place] [address] Final Report Patient Name: ??EKTAMARIANOJOLENEKaran Address: ??[address] [place] [address], ??[place], [place] ??[address] Gender: ??F : ??1945 (Age: 75) Service: ??Gastro Location: ??[facility] Hospital #: ??[id number] Patient Type: ??[facility] Accession # ?[id number] Taken: ??01/05/2021 Received: ??01/05/2021 Accessioned: ??01/05/2021 Reported: [...] determined by the Surgical Pathology Department at [facility] as part of an ongoing senior supplier quality engineer program and in compliance with federally mandated [...] characteristics determined by the Surgical Pathology Department [facility]. ??It has not been cleared or approved by the U. S. Food and Drug Administration. Pebbles Felton MD LAB PATHOLOGY ORDERABLES F inal Result Performing Organization Address City/[facility]/ZIP Co de Phone Number PATHOLOGY [facility] ([place]) 1 [place] [address] * H. pylori urease screen (RADHA test) Tissue (01/05/2021 12:45 PM BANKING SERVICES ADVISOR) H. pylori, rapid (RADHA) Negative Negative [facility] ([place]) Tissue 01/05/2021 12:4 5 PM BANKING SERVICES ADVISOR 01/05/2021 3:50 PM BANKING SERVICES ADVISOR Pebbles Felton MD LAB MICROBIOLOGY - GENERAL ORDERABLES Final Result Performing Organization Address [facility]/ZIP Co de Phone Number [facility]AN THOMAS ([place]) [address] [place] [address] Department [place] [address] * EGD (01/05/2021 12:36 PM BANKING SERVICES ADVISOR) Anatomical Region Laterality Modality Other Narrative Procedure Note Pebbles Felton MD - 01/05/2021 12:36 PM CST [facility] Patient Name: Jolene Cedillo Procedure Date: 01/05/2021 12:36 PM Date of : 1945 Admit Type: Outpatient Age: 75 Gender: Female Attending MD: Pebbles Felton M.D. Room: [facility] 1 Note Status: Finalized Patient [...] passed under direct vision. The Endoscope GIF-[id number] was introduced through the mouth, and advanced [...] 12:36 PM Procedure Code(s): --- Professional --- 03329, Esophagogastroduodenoscopy, flexible, transoral; with biopsy, single or multiple Diagnosis Code(s): --- Professional --- K31.89, Other diseases of stomach and duodenum K44.9, Diaphragmatic hernia without obstruction or gangrene D50.9, Iron deficiency anemia, unspecified CPT copyright 2019 [employer]. All rights reserved. The codes documented in this report are preliminary and upon medical receptionist medical assistant reviewmay be revised to meet current compliance requirements. Recognized by the [place] [employer] for promoting quality [...] Pre-Procedure (GI) New Bag 01/05/2021 12:09 PM BANKING SERVICES ADVISOR 30 mL/hr 30 mL/hr sodium chloride 0.9% infusion 125 mL/hr, intravenous, Continuous, Starting on Sun01/05/21 at 1200, Recovery (GI) New Bag 01/05/2021 12:40 PM BANKING SERVICES ADVISOR documented in this encounter Active and Recently Administered Medications Times are shown in BANKING SERVICES ADVISOR. Scheduled Medication Order 01/03/2021 01/04/2021 01/05/2021 sodium [...] result. 12/29/2020 12/29/2020 01/12/2021 3:0 6 AM BANKING SERVICES ADVISOR documented as of this encounter Care Teams Plastic Printer Relationship Specialty Start Date End Date Francisco Long MD PCP - General 02/23/17 05/15/22 Neil Ag MD PhD 6 [place] [address] Radiation Oncologist Radiation Oncology 12/17/18 [place] [address] [facility] 120 [place], [place] [id number] Referring Physician General Surgery 12/17/18 [place] [address] [facility] 120 [facility], [place] [id number] Medical Oncologist/Feed Crusher Medical Oncology 12/17/18 [place] [address] [facility] [address] [place] [address] Consulting Physician Gastroenterology 01/07/20 documented as of this encounter
--- OUTSIDE RECORDS SUMMARY | 2024-11-16 15:33 | XMS_ITS | Encounter Summary ---
Author Organization [facility] Address [address] [facility] [address] [place] [address] Care Team Providers Care Electric Brain Wave Equipment Mechanic Name Role Phone Francisco Long MD Primary Care Provider [phone] Neil Ag MD PhD Unavailable [phone] Ita estrada MD Unavailable Caron Mohan MD Unavailable Pebbles Felton MD Unavailable [phone] Encounter Details Date Type Department Care Team (Late st Contact Info) Description 01/03/2021 Telephone [facility] Gastroenterology at [address] [place] [address] Pebbles Felton MD [address] [place] [address] [address] [place] [address] Social History Tobacco Use Types Packs/Day Years [...] on file Legal Sex Female 12:21 PM CLAY TEMPERER Gender Identity Not on file Sexual Orientation [...] to get test done today at [facility] anytime between 7am-4pm. Pt on [...] call with any medical changes and/or medications/insurance. TEMPERER documented in this encounter Plan of Treatment Not on file documented as of this encounter Results * COVID-19 Coronavirus RNA Nasopharyngeal (01/03/2021 2:21 PM CLAY TEMPERER) COVID-19 RNA Not Detected [facility] ([place]) Comment: Testing performed as a component of [...] and NAAT . ??Testing performed by the [facility] Molecular Infectious Disease Laboratory. The Novel Coronavirus [...] [facility] ([place]) Comment:Testing performed by : [facility], [address] [place] [address], [address] Employeed in healthcare? No [facility] ([place]) Comment:Testing performed by : [address], [address] status? No [facility] ([place]) Comment:Testing performed by : [facility], [address] [place] [address], [address] Group care resident? No [facility] ([place]) Comment:Testing performed by : [facility], [address] [place] [address], [address] Hospitalized? No [facility] ([place]) Comment:Testing performed by : [facility], [address] [place] [address], [address] Is patient in ICU? No [facility] ([place]) Comment:Testing performed by : [address], [address] Symptomatic as defined by CDC? No [facility] ([place]) Comment:Testing performed by : [address], [address] Nasopharyngeal 01/03/2021 2: 21 PM CLAY TEMPERER 01/04/2021 2:55 AM CLAY TEMPERER Narrative MEHRAN Paredes[facility]) - 01/04/2021 8:24 PM CLAY TEMPERER What is the reason for testing?->Screening prior to scheduled procedure or surgery Pebbles Felton MD LAB MICROBIOLOGY - GENERAL ORDERABLES Final Result [facility] ([place]) [address] [facility] Department [place] [address] documented in this encounter Visit Diagnoses Diagnosis [...] result. 12/29/2020 12/29/2020 01/12/2021 3:0 6 AM CLAY TEMPERER documented as of this encounter Care Teams Electric Brain Wave Equipment Mechanic Relationship Specialty Start Date End Date Francisco Long MD PCP - General 02/23/17 05/15/22 Neil Ag MD PhD [address] [place] [address] Radiation Oncologist Radiation Oncology 12/17/18 [place] [address] [address] [place] [address] Referring Physician General Surgery 12/17/18 [place] [address] [address] [id number] Medical Oncologist/Evaluation Manager Medical Oncology 12/17/18 [place] [address] [place] [address] Consulting Physician Gastroenterology 01/07/20 documented as of this encounter
--- OUTSIDE RECORDS SUMMARY | 2024-11-16 15:33 | XMS_ITS | Encounter Summary ---
Author Organization [facility] Address [address] [facility] [address] [place] [address] Care Team Providers Care Sports Information Director Name Role Phone Francisco Long MD Primary Care Provider [phone] Neil Ag MD PhD Unavailable [phone] Ita estrada MD Unavailable Caron Mohan MD Unavailable [phone] Pebbles Felton MD Unavailable [phone] Encounter Details Date Type Department Care Team (Late st Contact Info) Description 01/06/2021 Orders Only [facility] [address] [facility] [address] [place] [address] Francisco Long MD [address] [place] [address] [address] [place] [address] Social History Tobacco Use Types [...] on file Legal Sex Female 12:21 PM FRAMING CARPENTER Gender Identity Not on file Sexual Orientation Not on file documented as of this encounter Plan of Treatment Not on file documented as of this encounter Visit Diagnoses Not on filedocumented in this encounter Additional Health Concerns Infection Onset Date Last Indicated Resolved Time Respiratory Infection (TITI), contact + droplet Comment:Automatically added due to negative COVID-19 result. 12/29/2020 12/29/2020 01/12/2021 3:0 6 AM FRAMING CARPENTER documented as of this encounter Care Teams Sports Information Director Relationship Specialty Start Date End Date Francisco Long MD PCP - General 02/23/17 05/15/22 Neil Ag MD PhD 6 [place] [address] Radiation Oncologist Radiation Oncology 12/17/18 [place] [address] [place], [place] [address] Referring Physician General Surgery 12/17/18 [place] [address] [place], [place] [address] Medical Oncologist/Concreter Medical Oncology 12/17/18 [place] [address] [place] [address] Consulting Physician Gastroenterology 01/07/20 documented as of this encounter
--- OUTSIDE RECORDS SUMMARY | 2024-11-16 15:34 | XMS_ITS | Encounter Summary ---
Author Organization [facility] Address [address] [facility] [address] [place] [address] Care Team Providers Care Reed Cleaner Name Role Phone Francisco Long MD Primary Care Provider [phone] Neil Ag MD PhD Unavailable [phone] Ita estrada MD Unavailable Caron Mohan MD Unavailable Pebbles Felton MD Unavailable [phone] Reason for Visit * Reason Comments Shortness of Breath x 1 week Nasal Congestion Encounter Details Date Type Department Care Team (Late st Contact Info) Description 12/28/2020 11:30 AM GROUNDS CLEANER Telemedicine [facility] [address] [facility] [address] [place] [address] Marianne Mendez, APOLINAR [address] [facility] [place] [address] Dyspnea on exertion (Primary Dx); Rhinorrhea; BMI [...] on file Legal Sex Female 12:21 PM GROUNDS CLEANER Gender Identity Not on file Sexual Orientation Not on file documented as of this encounter Last Filed Vital Signs Vital Sign Reading Time Taken Comments Blood Pressure - - Pulse - - Temperature - - Respiratory Rate - - Oxygen Saturation - - Inhaled Oxygen Concentration - - Weight 84.4 kg (186 lb) 12/28/2020 11:31 AM GROUNDS CLEANER Height 170.2 cm (5' 7 ) 12/28/2020 11:31 AM GROUNDS CLEANER Body Mass Index 29.13 12/28/2020 11:31 AM GROUNDS CLEANER documented in this encounter Progress Notes * Marianne Mendez NP - 12/28/2020 11:30 AM CST Images from the original note were not included. [facility] Patient ID: Jolene Cedillo is [...] was located at home in the state [facility]. The patient visit started at 1125 [...] a telephone or video [facility] to the patient. After being given [...] Francisco Long MD at 12/28/2020 1:42 PM GROUNDS CLEANER NDS CLEANER NDS CLEANER documented in this encounter Plan of Treatment [...] 06/26/2024 added in this encounter Care Teams Reed Cleaner Relationship Specialty Start Date End Date Francisco Long MD PCP - General 02/23/17 05/15/22 Neil Ag MD PhD 6 [place] [address] Radiation Oncologist Radiation Oncology 12/17/18 [place] [address] [facility] [address] [place], [place] [id number] Referring Physician General Surgery 12/17/18 [place] [address] [facility] [address] [place], [place] [id number] Medical Oncologist/Matching Machine Operator Medical Oncology 12/17/18 [place] [address] [facility] [address] [employer] [place], [place] [address] Consulting Physician Gastroenterology 01/07/20 documented as of this encounter
--- OUTSIDE RECORDS SUMMARY | 2024-11-16 15:34 | XMS_ITS | Encounter Summary ---
Author Organization [facility] Address [address] [facility] [address] [place] [address] Care Team Providers Care Engine Inspector Name Role Phone Francisco Long MD Primary Care Provider [phone] Neil Ag MD PhD Unavailable [phone] Ita estrada MD Unavailable Caron Mohan MD Unavailable [phone] Pebbles Felton MD Unavailable [phone] Encounter Details Date Type Department Care Team (Late st Contact Info) Description 12/08/2020 Telephone [facility] [address] [facility] [facility] [address] [place] [address] Herbert Galan MA Social History [...] on file Legal Sex Female 12:21 PM BASKETBALL COACH Gender Identity Not on file Sexual Orientation Not on file documented as of this encounter Miscellaneous Notes * Telephone Encounter - Yuli Lopez - 12/08/2020 10:03 AM CST Pt aware. Labs faxed to Jesika Harrison ETBALL COACH * Telephone Encounter - Herbert Galan MA - 12/08/2020 9:37 AM CST Left message to call back ETBALL COACH * Telephone Encounter - Herbert Galan MA - 12/08/2020 9:36 AM CST ----- Message from Francisco Long MD sent at 12/08/2020 7:56 AM BASKETBALL COACH ----- Lab work looks good A1c test is much better than it was a year ago so sugars much better than it was a year ago A1c test is 5.6 basically normal blood counts revealed very mild anemia B12 levels okayfolic acid levels okay recheck CBC iron profile 8 weeks from now diagnosis anemia ETBALL COACH documented in this encounter Plan of Treatment Not on file documented as of this encounter Visit Diagnoses Not on filedocumented in this encounter Care Teams Engine Inspector Relationship Specialty Start Date End Date Francisco Long MD PCP - General 02/23/17 05/15/22 Neil Ag MD PhD 6 [place] [address] Radiation Oncologist Radiation Oncology 12/17/18 [place] [address] [address] Referring Physician General Surgery 12/17/18 [place] [address] [address] Medical Oncologist/Die Holder Medical Oncology 12/17/18 [place] [address] [address] Consulting Physician Gastroenterology 01/07/20 documented as of this encounter
--- OUTSIDE RECORDS SUMMARY | 2024-11-16 15:34 | XMS_ITS | Encounter Summary ---
Author Organization [facility] Address [address] [facility] [address] [place] [address] Care Team Providers Care Registered Nurse Nursery Name Role Phone Francisco Long MD Primary Care Provider Neil Ag MD PhD Unavailable [phone] Ita estrada MD Unavailable Caron Mohan MD Unavailable Pebbles Felton MD Unavailable [phone] Encounter Details Date Type Department Care Team (Late st Contact Info) Description 12/28/2020 Orders Only [facility] Testing Site - [address] [address] [address] [place] [address] Alhaji Mendez, MANAGER CONTRACT [address] [place] [address] Exposure to SARS-associated coronavirus (Primary Dx) Social [...] Legal Sex Female 12:21 PM DIRECTOR OF ACCOUNTS PAYABLE Gender Identity Not on file Sexual Orientation Not on file documented as of this encounter Progress Notes * Chitra Rosenbaum - 12/28/2020 12:11 PM CST Ordering User: Alhaji Mendez NP Auth Provider: ALHAJI MENDEZ Enc Provider: Alhaji Mendez NP Diagnosis: Dyspnea on exertion Rhinorrhea Department: [facility] Aim Sched Instruct: ?? Comment: ?? Order Specific Questions Question Answer Comment Testing types: Symptomatic with high risk condition ?? High risk condition: Age > 65 ?? Date of symptom onset 12/21/2020 ?? Testing site patient will be sent to: [facility] ?? Date testing requested: 12/28/2020 ?? Testing: COVID-RNA ?? Is this the first COVID-19 test for this patient? Does the patient currently work in a healthcare facility with direct patient contact? No ?? Is the patient a resident of a congregate care or living setting? No ?? Is the patient ? No ?? Please select the performing region: [facility] CTOR OF ACCOUNTS PAYABLE documented in this encounter Plan of Treatment Not on file documented as of this encounter Results * COVID-19 Coronavirus RNA Nasopharyngeal (12/28/2020 1:37 PM DIRECTOR OF ACCOUNTS PAYABLE) COVID-19 RNA Not Detected [facility] DE JESUS Comment: Interpretive Data Testing performed at [facility] Molecular Infectious Disease Laboratory. The 2019-Novel Coronavirus [...] last revised on 2020. Testing performed by: [facility], [address] [place]., [address] First COVID-19 test? Unknown MEHRAN Comment:Testing performed by : [facility], [address] [place] [address], [address] Employeed in healthcare? No [facility]:Testing performed by : [facility], [address] [place] [address], [address] status? No [facility] Comment:Testing performed by : [facility], [address] [facility], [address] Group care resident? No MEHRAN Comment:Testing performed by : [facility], [address] [place] [address], [address] Hospitalized? No [facility] Comment:Testing performed by : [facility], [address] [facility], [address] Is patient in ICU? No [facility] Comment:Testing performed by : [facility], [address] [place] [address], [address] Symptomatic as defined by CDC? Yes MEHRAN Comment:Testing performed by : [facility], [address] [place] [address], [address] Nasopharyngeal 12/28/2020 1: 37 PM DIRECTOR OF ACCOUNTS PAYABLE 12/28/2020 10:54 PM DIRECTOR OF ACCOUNTS PAYABLE Narrative [facility] - 12/29/2020 7:20 AM DIRECTOR OF ACCOUNTS PAYABLE What is the reason for testing?->Symptoms of COVID-19 in high-risk group, without concurrent influenza testing Date of symptom onset->12/21/20 Alhaji Mendez NP LAB MICROBIOLOGY - GENERAL ORDERABLES Final Result [facility] [address] [place] [address] documented in this encounter Visit Diagnoses Diagnosis Exposure to SARS-associated coronavirus- Primary Exposure to SARS-associated coronavirus documented in this encounter Additional Health Concerns Infection Onset Date Last Indicated Resolved Time COVID: Suspected 12/28/2020 12/28/2020 12/29/2020 7:21 AM DIRECTOR OF ACCOUNTS PAYABLE documented as of this encounter Care Teams Registered Nurse Nursery Relationship Specialty Start Date End Date Francisco Long MD PCP - General 02/23/17 05/15/22 Neil Ag MD PhD [address] [place] [address] Radiation Oncologist Radiation Oncology 12/17/18 [place] [address] [address] [facility] [address] [place], [place] [address] Referring Physician General Surgery 12/17/18 [place] [address] [facility] [address] [place], [place] [id number] Medical Oncologist/Last Sorter Medical Oncology 12/17/18 [place] [address] [facility] [address] [place], [place] [address] Consulting Physician Gastroenterology 01/07/20 documented as of this encounter
--- OUTSIDE RECORDS SUMMARY | 2024-11-16 15:34 | XMS_ITS | Encounter Summary ---
Author Organization [facility] Address [address] [place] [address] Care Team Providers Care Trade Embalmer Name Role Phone Francisco Long MD Primary Care Provider Neil Ag MD PhD Unavailable [phone] Ita Vazquez MD Unavailable Caron Mohan MD Unavailable [phone] Pebbles Felton MD Unavailable [phone] Mounika Cruz RN Unavailable Encounter Details Date Type Department Care Team (Late st Contact Info) Description 11/25/2020 10:30 AM GRAINER MACHINE Office Visit [facility] Radiation Oncology [address] [place] [address] Neil Ag MD PhD [address] [place] [address] Malignant neoplasm of upper-inner quadrant of left [...] on file Legal Sex Female 12:21 PM GRAINER MACHINE Gender Identity Not on file Sexual Orientation Not on file documented as of this encounter Last Filed Vital Signs Vital Sign Reading Time Taken Comments Blood Pressure 128/76 11/25/2020 10:24 AM GRAINER MACHINE Pulse 89 11/25/2020 10:24 AM GRAINER MACHINE Temperature 36.4 ??C (97.5 ??F) 11/25/2020 10:[address] Respiratory Rate 18 11/25/2020 10:24 AM GRAINER MACHINE Oxygen Saturation 100% 11/25/2020 10:24 AM GRAINER MACHINE Inhaled Oxygen Concentration - - Weight 85.3 kg (188 lb) 11/25/2020 10:24 AM GRAINER MACHINE Height - - Body Mass Index 29.44 11/01/2020 10:15 AM GRAINER MACHINE documented in this encounter Patient Instructions * Patient Instructions* Neil Ag MD PhD - 11/25/2020 10:30 AM GRAINER MACHINE We know that there are many questions [...] often with soap and water, or alcohol-based hand-surveillance technician - For the most current and up to date information, we would recommend accessing the following link for the Centers for Disease Control (CDC): www.cdc.gov/coronavirus For patients who are starting radiation therapy or currently receiving radiation: - If you have any symptoms such as fever, cough, shortness of breath, or any other flu-like symptoms, please call the hospital cigarette packing machine operator at [phone] and ask for the [facility] hotline. Hotline personnel will screen the patients [...] contact with you to assist with rescheduling NER MACHINE documented in this encounter Discharge Disposition Disposition [...] IA (pT1b, pN1mi(sn), cM0, G2, ER: Positive, OH: Positive, HER2: Negative) - Signed by Neil Ag MD PhD on 12/17/2018 Treatment Intent: adjuvant Jolene Cedillo is a 74 y.o. 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 Continue close follow up with her other healthcare providers. RAD ONC PAIN PLAN: The patient is not currently having any pain that requires changes in pain management. My total face to face time with this patient during this office visit: 15 minutes DISEASE STATUS/TOXICITY: Disease Status: Controlled New metachronous cancer?: No NER MACHINE documented in this encounter Nursing Notes * Molly Gupta RN - 11/25/2020 10:30 AM CST Faint hyperpigmentation of left breast. NER MACHINE documented in this encounter Plan of Treatment Not on file documented as of this encounter Visit Diagnoses Diagnosis Malignant neoplasm of upper-inner quadrant of left breast in female, estrogen receptor positive (HCC)- Primary documented in this encounter Care Teams Trade Embalmer Relationship Specialty Start Date End Date Francisco Long MD PCP - General 02/23/17 05/15/22 Neil Ag MD PhD [address] [place] [address] Radiation Oncologist Radiation Oncology 12/17/18 [place] [address] [address] [facility] [address] [place] [address] Referring Physician General Surgery 12/17/18 [place] [address] [address] [address] Medical Oncologist/Motorcycle Delivery Driver Medical Oncology 12/17/18 [place] [address] [address] [address] Consulting Physician Gastroenterology 01/07/20 Mounika Cruz RN [address] [place] [address] [address] [place] [address] Barrel Cap Setter 11/17/20 11/28/20 documented as of this encounter
--- OUTSIDE RECORDS SUMMARY | 2024-11-16 15:34 | XMS_ITS | Encounter Summary ---
Author Organization [facility] Address [address] [facility] [address] [place] [address] Care Team Providers Care Education Program Specialist Name Role Phone Francisco Long MD Primary Care Provider [phone] Neil Ag MD PhD Unavailable [phone] [facility] MD Unavailable Caron Mohan MD Unavailable Pebbles Felton MD Unavailable [phone] Mounika Cruz RN Unavailable Yamileth Meade MA Unavailable [phone] Encounter Details Date Type Department Care Team (Late st Contact Info) Description 11/22/2020 Orders Only [facility] Health Information Management [address] [place] [address] Scanning, Provider Social History Tobacco [...] on file Legal Sex Female 12:21 PM LOAD BLOCKER Gender Identity Not on file Sexual Orientation [...] COVID: Suspected 12/28/2020 12/28/2020 12/29/2020 7:21 AM LOAD BLOCKER Respiratory Infection (TITI), contact + droplet Comment:Automatically added due to negative COVID-19 result. 12/29/2020 12/29/2020 01/12/2021 3:0 6 AM LOAD BLOCKER documented as of this encounter Care Teams Education Program Specialist Relationship Specialty Start Date End Date Francisco Long MD PCP - General 02/23/17 05/15/22 Neil Ag MD PhD [address] [place] [address] Radiation Oncologist Radiation Oncology 12/17/18 [place] [address] [address] [place] [address] Referring Physician General Surgery 12/17/18 [place] [address] [address] [address] Medical Oncologist/Keyseater Operator Medical Oncology 12/17/18 [place] [address] [address] [facility] [address] [place] [address] Consulting Physician Gastroenterology 01/07/20 Mounika Cruz RN [address] [place] [address] [address] [place] [address] Second Worker 11/17/20 11/28/20 Yamileth Meade MA [address] [facility] [address] [place] [address] ACO Care Hims Clerk 04/26/21 04/26/21 documented as of this encounter
--- OUTSIDE RECORDS SUMMARY | 2024-11-16 15:34 | XMS_ITS | Encounter Summary ---
Author Organization [facility] Healthcare Address [address] [place] [address] Care Team Providers Care Forge Operator Helper Name Role Phone Francisco Long MD Primary Care Provider [phone] Neil Ag MD PhD Unavailable [phone] Ita estrada MD Unavailable Caron Mohan MD Unavailable Pebbles Felton MD Unavailable [phone] Encounter Details Date Type Department Care Team (Late st Contact Info) Description 12/28/2020 4:20 PM DISPLAY DECORATOR Lab [address] [id number] Exposure to SARS-associated coronavirus Social History Tobacco [...] on file Legal Sex Female 12:21 PM DISPLAY DECORATOR Gender Identity Not on file Sexual Orientation Not on file documented as of this encounter Plan of Treatment Not on file documented as of this encounter Procedures Procedure Name Priority Date/Time Associated Diagnosis Comments COVID-19 CORONAVIRUS RNA Routine 12/28/2020 1:37 PM DISPLAY DECORATOR Exposure to SARS-associated coronavirus documented in this encounter Results * COVID-19 Coronavirus RNA Nasopharyngeal (12/28/2020 1:37 PM DISPLAY DECORATOR) COVID-19 RNA Not Detected [facility] Comment: Interpretive Data Testing performed at [facility] Molecular Infectious Disease Laboratory. The [...] last revised on 2020. Testing performed by: [facility], [address] [place] [address]., [address] First COVID-19 test? Unknown [facility] Comment:Testing performed by : [facility], [address] [place] [address], [address] Employeed in healthcare? No [facility] Comment:Testing performed by : [address] [address] status? No [facility] Comment:Testing performed by : [address] [address] Group care resident? No [facility] Comment:Testing performed by : [facility], [address] [place] [address], [address] Hospitalized? No [facility] Comment:Testing performed by : [facility], [address] [place] [address], [address] Is patient in ICU? No [facility] Comment:Testing performed by : [facility], [address] [place]., [address] Symptomatic as defined by CDC? Yes [facility] Comment:Testing performed by : [facility], [address] [place]., [address] Nasopharyngeal 12/28/2020 1: 37 PM DISPLAY DECORATOR 12/28/2020 10:54 PM DISPLAY DECORATOR Narrative [facility] - 12/29/2020 7:20 AM DISPLAY DECORATOR What is the reason for testing?->Symptoms of COVID-19 in high-risk group, without concurrent influenza testing Date of symptom onset->12/21/20 Marianne Mendez ENTERPRISE SALES EXECUTIVE LAB MICROBIOLOGY - GENERAL ORDERABLES Final Result [facility] [address] Department [place] [address] documented in this encounter Visit Diagnoses Diagnosis Exposure to SARS-associated coronavirus documented in this encounter Additional Health Concerns Infection Onset Date Last Indicated Resolved Time COVID: Suspected 12/28/2020 12/28/2020 12/29/2020 7:21 AM DISPLAY DECORATOR documented as of this encounter Care Teams Forge Operator Helper Relationship Specialty Start Date End Date Francisco Long MD PCP - General 02/23/17 05/15/22 Neil Ag MD PhD [address] [place] [address] Radiation Oncologist Radiation Oncology 12/17/18 [place] [address] [address] [facility] [address] [place], [place] [id number] Referring Physician General Surgery 12/17/18 [place] [address] [address] [facility] [address] [place] [address] Medical Oncologist/Unclaimed Property Manager Medical Oncology 12/17/18 [place] [address] [place] [address] Consulting Physician Gastroenterology 01/07/20 documented as of this encounter
--- OUTSIDE RECORDS SUMMARY | 2024-11-16 15:34 | XMS_ITS | Encounter Summary ---
Author Organization [facility] Medical Group Address [address] [facility] [address] [place] [address] Care Team Providers Care Pool Player Name Role Phone Francisco Long MD Primary Care Provider [phone] Neil Ag MD PhD Unavailable [phone] Ita estrada MD Unavailable Caron Mohan MD Unavailable Pebbles Felton MD Unavailable [phone] Reason for Referral * Diagnostic Imaging (Routine) - Closed Specialty Diagnoses / Procedures Referred By Contac t Referred To Contact Diagnoses Dyspnea on exertion Procedures XR Chest Pa Lateral 2 Vw Alhaji Mendez NP Phone: tel: fax: [facility] [address] [place] [address] Referral ID Status Reason Start Date Expiration Date Visits Re quested Visits Authorized [id number] Closed 12/29/2020 01/28/2022 1 1 GE GOODS EXAMINER Encounter Details Date Type Department Care Team (Late st Contact Info) Description 12/29/2020 Orders Only [facility] [address] [facility] [address] [place] [address] Alhaji Mendez NP [address] [place] [address] Dyspnea on exertion (Primary Dx) Social History [...] on file Legal Sex Female 12:21 PM GREIGE GOODS EXAMINER Gender Identity Not on file Sexual Orientation Not on file documented as of this encounter Plan of Treatment Not on file documented as of this encounter Results * XR Chest Pa Lateral 2 Vw (12/29/2020 11:39 AM GREIGE GOODS EXAMINER) Anatomical Region Laterality Modality Body, Chest N/A Computed Radiogr aphy 12/29/2020 11:4 5 AM GREIGE GOODS EXAMINER Impressions 12/29/2020 11:46 AM GREIGE GOODS EXAMINER No acute findings. ??Large hiatal hernia. Electronically signed by: Saqib Potter M.D. Narrative 12/29/2020 11:46 AM GREIGE GOODS EXAMINER EXAMINATION: XR CHEST PA LATERAL 2 VIEWS [...] by: Saqib Potter M.D. us Alhaji Mendez NEWSPAPER PHOTO EDITOR IMG XR PROCEDURES Final Re sult * (ABNORMAL) CBC with auto differential (12/29/2020 11:20 AM GREIGE GOODS EXAMINER) WBC 6.8 3.8 - 9.9 K/cumm CERNER [...] ([place]) Blood specimen (specimen) 12/29/2020 11:20 AM GREIGE GOODS EXAMINER 12/29/2020 12:40 PM GREIGE GOODS EXAMINER Alhaji Mendez NP LAB BLOOD ORDERABLES Final Result Performing Organization Address City/[facility]/ZIP Co de Phone Number MEHRAN VALDERRAMA) [address] [facility] Department [place] [address] * (ABNORMAL) Basic metabolic panel (12/29/2020 11:20 AM GREIGE GOODS EXAMINER) Sodium 140 135 - 145 mmol/L CERNER [...] ([place]) Blood specimen (specimen) 12/29/2020 11:20 AM GREIGE GOODS EXAMINER 12/29/2020 12:40 PM GREIGE GOODS EXAMINER Alhaji Mendez NP LAB BLOOD ORDERABLES Final Result Performing Organization Address City/[facility] Co de Phone Number MEHRAN THOMAS ([place]) [address] [facility] Department [place] [address] * Pro B-type natriuretic peptide (12/29/2020 11:20 AM GREIGE GOODS EXAMINER) NT-proBNP 200 <=300 pg/mL MEHRAN THOMAS ([place]) Comment: Interpretive Comments: A. Dyspnea in Acute [...] 2018. Blood specimen (specimen) 12/29/2020 11:20 AM GREIGE GOODS EXAMINER 12/29/2020 3:30 PM GREIGE GOODS EXAMINER Alhaji Mendez NEWSPAPER PHOTO EDITOR LAB BLOOD ORDERABLES Final Result [facility] ([place]) [address] [facility] Department [place] [address] documented in this encounter Visit Diagnoses Diagnosis Dyspnea on exertion- Primary Other dyspnea and respiratory abnormality Dyspnea on exertion Other dyspnea and respiratory abnormality documented in this encounter Additional Health Concerns Infection Onset Date Last Indicated Resolved Time COVID: Suspected 12/28/2020 12/28/2020 12/29/2020 7:21 AM GREIGE GOODS EXAMINER Respiratory Infection (TITI), contact + droplet Comment:Automatically added due to negative COVID-19 result. 12/29/2020 12/29/2020 01/12/2021 3:0 6 AM GREIGE GOODS EXAMINER documented as of this encounter Care Teams Pool Player Relationship Specialty Start Date End Date Francisco Long MD PCP - General 02/23/17 05/15/22 Neil Ag MD PhD [address] [place] [address] Radiation Oncologist Radiation Oncology 12/17/18 [place] [address] [place] [address] Referring Physician General Surgery 12/17/18 [place] [address] [facility], [place] [id number] Medical Oncologist/Shovel Loader Operator Medical Oncology 12/17/18 [place] [address] [address] [facility] [address] [place] [address] Consulting Physician Gastroenterology 01/07/20 documented as of this encounter
--- OUTSIDE RECORDS SUMMARY | 2024-11-16 15:34 | XMS_ITS | Encounter Summary ---
Author Organization [facility] Medical Group Address [address] [facility] [address] [place] [address] Care Team Providers Care Airport Refueling Handler Name Role Phone Francisco Long MD Primary Care Provider Neil Ag MD PhD Unavailable [phone] Ita Vazquez MD Unavailable Caron Mohan MD Unavailable Pebbles Felton MD Unavailable [phone] Encounter Details Date Type Department Care Team (Late st Contact Info) Description 12/28/2020 Telephone [facility] 2 [facility] [address] [place] [address] Francisco Long MD [address] [place] [address] [address] [place] [address] Social History Tobacco Use Types [...] on file Legal Sex Female 12:21 PM COOK VEGETABLE Gender Identity Not on file Sexual Orientation Not on file documented as of this encounter Miscellaneous Notes * Telephone Encounter - Janna Gonsales - 12/31/2020 3:55 PM CST Noted. VEGETABLE documented in this encounter Plan of Treatment Not on file documented as of this encounter Visit Diagnoses Not on filedocumented in this encounter Additional Health Concerns Infection Onset Date Last Indicated Resolved Time COVID: Suspected 12/28/2020 12/28/2020 12/29/2020 7:21 AM COOK VEGETABLE Respiratory Infection (TITI), contact + droplet Comment:Automatically added due to negative COVID-19 result. 12/29/2020 12/29/2020 01/12/2021 3:0 6 AM COOK VEGETABLE documented as of this encounter Care Teams Airport Refueling Handler Relationship Specialty Start Date End Date Francisco Long MD PCP - General 02/23/17 05/15/22 Neil Ag MD PhD [address] [place] [address] Radiation Oncologist Radiation Oncology 12/17/18 [place] [address] [address] [facility] [place] [address] Referring Physician General Surgery 12/17/18 [place] [address] [address] [place] [address] Medical Oncologist/Host Hostess Medical Oncology 12/17/18 [place] [address] [facility] [address] [place] [address] Consulting Physician Gastroenterology 01/07/20 documented as of this encounter
--- OUTSIDE RECORDS SUMMARY | 2024-11-16 15:34 | XMS_ITS | Encounter Summary ---
Author Organization [facility] Medical Group Address [address] [facility] [address] [place] [address] Care Team Providers Care Forest Firefighter Name Role Phone Francisco Long MD Primary Care Provider Neil Ag MD PhD Unavailable [phone] Ita estrada MD Unavailable Caron Mohan MD Unavailable Pebbles Felton MD Unavailable [phone] Encounter Details Date Type Department Care Team (Late st Contact Info) Description 12/07/2020 Orders Only [facility] 2 [facility] [address] [place] [address] Francisco Long MD [address] [place] [address] [address] [place] [address] Social History Tobacco Use Types [...] on file Legal Sex Female 12:21 PM SUGAR CANE FARM MANAGER Gender Identity Not on file Sexual [...] profile 8 weeks from now diagnosis anemia R CANE FARM MANAGER documented in this encounter Plan of Treatment Not on file documented as of this encounter Procedures Procedure Name Priority Date/Time Associated Diagnosis Comments VITAMIN B12 AND FOLATE Routine 12/07/2020 8:29 AM SUGAR CANE FARM MANAGER CBC WITH AUTO DIFFERENTIAL Routine 12/07/2020 8:29 AM SUGAR CANE FARM MANAGER PROTEIN ELECTROPHORESIS, WITH REFLEX, SERUM Routine 12/07/2020 8:29 AM SUGAR CANE FARM MANAGER HEMOGLOBIN A1C Routine 12/07/2020 8:29 AM SUGAR CANE FARM MANAGER documented in this encounter Results * Hemoglobin A1c (12/07/2020 8:29 AM SUGAR CANE FARM MANAGER) Hgb A1C 5.6 <5.7 % of total Hgb [facility] Comment: For the purpose of screening for the presence of diabetes: <5.7% ? Consistent with the absence of diabetes 5.7-6.4% ?Consistent with increased risk for diabetes ?(prediabetes) > or =6.5% ??Consistent with diabetes This assay result is consistent with a decreased risk of diabetes. Currently, no consensus exists regarding use of hemoglobin A1c for diagnosis of diabetes in children. According to [place] Diabetes Association (ADA) guidelines, hemoglobin A1c <7.0% represents optimal control in non- diabetic patients. Different metrics may apply to specific patient populations. Standards of Medical Care in Diabetes(ADA). ?? 12/07/2020 8:29 AM SUGAR CANE FARM MANAGER 12/07/2020 8:32 AM SUGAR CANE FARM MANAGER Francisco Long MD LAB BLOOD ORDERABLES Final Res ult Performing Organization Address [facility] de Phone Number [facility] [address] [place] [address] * Vitamin B12 and Folate (12/07/2020 8:29 AM SUGAR CANE FARM MANAGER) [facility] Vitamin B12 512 200 - 1,100 pg/mL [facility] Folate, Serum 5.7 ng/mL [facility] Comment: ? Reference Range ? Low: ? <3.4 ? Borderline: ?3.4-5.4 ? Normal: ?>5.4 12/07/2020 8:29 AM SUGAR CANE FARM MANAGER 12/07/2020 8:32 AM SUGAR CANE FARM MANAGER Farncisco Long MD LAB BLOOD ORDERABLES Final Res ult Performing Organization Address [facility] de Phone Number [facility] [address] [place] [address] * (ABNORMAL) Protein Electrophoresis, With Reflex, Serum (12/07/2020 8:29 AM SUGAR CANE FARM MANAGER) [facility] Protein, sr 5.9(L) 6.1 - 8.1 g/dL [facility] ALBUMIN 3.6(L) 3.8 - 4.8 g/dL [facility] Alpha-1 Globulin 0.3 0.2 - 0.3 g/dL [facility] Alpha-2 Globuliin 0.7 0.5 - 0.9 g/dL [facility] Beta-1 globulin 0.4 0.4 - 0.6 g/dL [facility] Beta 2 globulin 0.3 0.2 - 0.5 g/dL [facility] Gamma globulin 0.6(L) 0.8 - 1.7 g/dL [facility] SPE, interp [facility] Comment: Hypogammaglobulinemia may be seen in early or evolving lymphoproliferative disorders, acquired or congenital immune deficiencies, immunosuppressive therapy and light chain disease. Consider urine protein electrophoresis, urine immunofixation and/or free light chains if clinically indicated. 12/07/2020 8:29 AM SUGAR CANE FARM MANAGER 12/07/2020 8:32 AM SUGAR CANE FARM MANAGER us Francisco Long MD LAB BLOOD ORDERABLES Final Res ult [facility] [address] [place] [address] * (ABNORMAL) CBC with auto differential (12/07/2020 8:29 AM SUGAR CANE FARM MANAGER) Pathologist [facility] WBC 4.4 3.8 - [...] % [facility] 12/07/2020 8:29 AM SUGAR CANE FARM MANAGER 12/07/2020 8:32 AM SUGAR CANE FARM MANAGER us Francisco Long MD LAB BLOOD ORDERABLES Final Res ult [facility] [address] [place] [address] documented in this encounter Visit Diagnoses Not on filedocumented in this encounter Care Teams Forest Firefighter Relationship Specialty Start Date End Date Francisco Long MD PCP - General 02/23/17 05/15/22 Neil Ag MD PhD [address] [place] [address] Radiation Oncologist Radiation Oncology 12/17/18 [place] [address] [place], [place] [address] Referring Physician General Surgery 12/17/18 [place] [address] [address] Medical Oncologist/Custodial Worker Medical Oncology 12/17/18 [place] [address] [address] Consulting Physician Gastroenterology 01/07/20 documented as of this encounter
--- OUTSIDE RECORDS SUMMARY | 2024-11-16 15:34 | XMS_ITS | Encounter Summary ---
Author Organization [facility] Medical Group Address [address] [facility] [address] [place] [address] Care Team Providers Care Lone Lead Lineman Name Role Phone Francisco Long MD Primary Care Provider Neil Ag MD PhD Unavailable [phone] Ita Vazquez MD Unavailable Caron Mohan MD Unavailable Pebbles Felton MD Unavailable [phone] Encounter Details Date Type Department Care Team (Late st Contact Info) Description 11/15/2020 Telephone [facility] 2 [facility] [address] [place] [address] Francisco Long MD [address] [place] [address] [address] [place] [address] Social History Tobacco Use Types [...] Legal Sex Female 12:21 PM DIRECTOR OF CASEWORK SERVICES Gender Identity Not on file Sexual Orientation Not on file documented as of this encounter Miscellaneous Notes * Telephone Encounter - Katie Apple - 11/15/2020 3:31 PM CST Pt was at a friend's house 11/10 for 2 hours unmasked. The friend became symptomatic 11/11 and received positive covid results today. She is currently asymptomatic. Pt was advised to quarantine due to exposure. CTOR OF CASEWORK SERVICES documented in this encounter Plan of Treatment Not on file documented as of this encounter Visit Diagnoses Not on filedocumented in this encounter Care Teams Lone Lead Lineman Relationship Specialty Start Date End Date Francisco Long MD PCP - General 02/23/17 05/15/22 Neil Ag MD PhD [address] [place] [address] Radiation Oncologist Radiation Oncology 12/17/18 [place] [address] [facility] [address] [place], [facility], [place] [id number] Referring Physician General Surgery 12/17/18 [place] [address] [facility] [address] [place] [address] Medical Oncologist/Hiv Cts Specialist Medical Oncology 12/17/18 [place] [address] [facility] [address] [place], [place] [id number] Consulting Physician Gastroenterology 01/07/20 documented as of this encounter
--- OUTSIDE RECORDS SUMMARY | 2024-11-16 15:34 | XMS_ITS | Encounter Summary ---
Author Organization [facility] Medical Group Address [address] [facility] [address] [place] [address] Care Team Providers Care Powderman Name Role Phone Francisco Long MD Primary Care Provider [phone] Neil Ag MD PhD Unavailable [phone] Ita Vazquez MD Unavailable Caron Mohan MD Unavailable Pebbles Felton MD Unavailable [phone] Reason for Visit * Reason Comments Hyperglycemia Encounter Details Date Type Department Care Team (Late st Contact Info) Description 12/06/2020 9:45 AM DATA MANAGEMENT MANAGER Office Visit [facility] 2 [facility] [address] [place] [address] Francisco Long MD [address] [place] [address] [address] [place], [place] [id number] 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) [...] on file Legal Sex Female 12:21 PM DATA MANAGEMENT MANAGER Gender Identity Not on file Sexual Orientation Not on file documented as of this encounter Last Filed Vital Signs Vital Sign Reading Time Taken Comments Blood Pressure 110/70 12/06/2020 9:57 AM DATA MANAGEMENT MANAGER Pulse 60 12/06/2020 9:57 AM DATA MANAGEMENT MANAGER Temperature - - Respiratory Rate 20 12/06/2020 9:57 AM DATA MANAGEMENT MANAGER Oxygen Saturation - - Inhaled Oxygen Concentration - - Weight 85.7 kg (189 lb) 12/06/2020 9:57 AM DATA MANAGEMENT MANAGER Height 170.2 cm (5' 7 ) 12/06/2020 9:57 AM DATA MANAGEMENT MANAGER Body Mass Index 29.6 12/06/2020 9:57 AM DATA MANAGEMENT MANAGER documented in this encounter Progress Notes [...] November 22 taken by her specialist in [place]. She denies polyuria polydipsia no blurred vision [...] visit: Type 2 diabetes mellitus with hyperlipidemia (CMS/[facility]) (Primary) BMI 29.0-29.9,adult Will get A1c test [...] in agreement with the plan of care. MANAGEMENT MANAGER MANAGEMENT MANAGER documented in this encounter Plan of Treatment Not on file documented as of this encounter Visit Diagnoses Diagnosis 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)- Primary BMI 29.0-29.9,adult documented in this encounter Care Teams Powderman Relationship Specialty Start Date End Date Francisco Long MD PCP - General 02/23/17 05/15/22 Neil Ag MD PhD [address] [place] [id number] Radiation Oncologist Radiation Oncology 12/17/18 [place] [address] [place], [place] [address] Referring Physician General Surgery 12/17/18 [place] [address] [facility] [place] [id number] Medical Oncologist/Meat Butcher Medical Oncology 12/17/18 [place] [address] [place] [address] Consulting Physician Gastroenterology 01/07/20 documented as of this encounter
--- OUTSIDE RECORDS SUMMARY | 2024-11-16 15:34 | XMS_ITS | Encounter Summary ---
Author Organization [facility] Medical Group Address [address] [facility] [address] [place] [address] Care Team Providers Care Business Development Consultant Name Role Phone Francisco Long MD Primary Care Provider [phone] Neil Ag MD PhD Unavailable [phone] Ita estrada MD Unavailable Caron Mohan MD Unavailable Pebbles Felton MD Unavailable [phone] Encounter Details Date Type Department Care Team (Late st Contact Info) Description 12/08/2020 Telephone [facility] [address] [facility] [address] [place] [address] Herbert Galan MA Social History [...] on file Legal Sex Female 12:21 PM DREDGE PIPE OPERATOR Gender Identity Not on file Sexual Orientation Not on file documented as of this encounter Miscellaneous Notes * Telephone Encounter - Herbert Galan MA - 12/08/2020 10:29 AM CST Pt aware GE PIPE OPERATOR * Telephone Encounter - Hebrert Galan MA - 12/08/2020 10:29 AM CST ----- Message from Francisco Long MD sent at 12/08/2020 7:56 AM DREDGE PIPE OPERATOR ----- Lab work looks good A1c test is much better than it was a year ago so sugars much better than it was a year ago A1c test is 5.6 basically normal blood counts revealed very mild anemia B12 levels okayfolic acid levels okay recheck CBC iron profile 8 weeks from now diagnosis anemia GE PIPE OPERATOR documented in this encounter Plan of Treatment Not on file documented as of this encounter Visit Diagnoses Not on filedocumented in this encounter Care Teams Business Development Consultant Relationship Specialty Start Date End Date Francisco Long MD PCP - General 02/23/17 05/15/22 Neil Ag MD PhD [address] [place] [address] Radiation Oncologist Radiation Oncology 12/17/18 [place] [address] [address] [facility] [address] [place] [address] [id number] Referring Physician General Surgery 12/17/18 [place] [address] [address] [facility] [address] [id number] Medical Oncologist/Scrap Baler Medical Oncology 12/17/18 [place] [address] [address] Consulting Physician Gastroenterology 01/07/20 documented as of this encounter
--- OUTSIDE RECORDS SUMMARY | 2024-11-16 15:34 | XMS_ITS | Encounter Summary ---
Author Organization [facility] Medical Group Address [address] [facility] [address] [place] [address] Care Team Providers Care Shell Shop Supervisor Name Role Phone Francisco Long MD Primary Care Provider [phone] Neil Ag MD PhD Unavailable [phone] Ita estrada MD Unavailable Caron Mohan MD Unavailable [phone] Pebbles Felton MD Unavailable [phone] Encounter Details Date Type Department Care Team (Late st Contact Info) Description 12/06/2020 Orders Only [facility] [address] [facility] [address] [place] [address] Francisco Long MD [address] [place] [address] [address] [place] [address] Type 2 diabetes mellitus with [...] on file Legal Sex Female 12:21 PM DRYWALL WORKER Gender Identity Not on file Sexual Orientation Not on file documented as of this encounter Progress Notes * Chitra Tyson - 12/06/2020 10:24 AM CST Added a1c for quest due 06/2021 ALL WORKER documented in this encounter Plan of Treatment Not on file documented as of this encounter Visit Diagnoses Diagnosis 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)- Primary documented in this encounter Orders Lab Orders Without Results Count Last Ordered D ate First Ordered Date HEMOGLOBIN A1C 1 12/06/2020 documented in this encounter Care Teams Shell Shop Supervisor Relationship Specialty Start Date End Date Francisco Long MD PCP - General 02/23/17 05/15/22 Neil Ag MD PhD 6 [place] [address] Radiation Oncologist Radiation Oncology 12/17/18 [place] [address] [facility] 120 [place], [place] [id number] Referring Physician General Surgery 12/17/18 [place] [address] [facility] [address] [place], [place] [id number] Medical Oncologist/Wedding Cake Designer Medical Oncology 12/17/18 [place] [address] [facility] [address] [place] [address] Consulting Physician Gastroenterology 01/07/20 documented as of this encounter
--- OUTSIDE RECORDS SUMMARY | 2024-11-16 15:34 | XMS_ITS | Encounter Summary ---
Author Organization [facility] Medical Group Address [address] [facility] [address] [place] [address] Care Team Providers Care Wick Tender Name Role Phone Francisco Long MD Primary Care Provider [phone] Neil Ag MD PhD Unavailable [phone] Ita estrada MD Unavailable Caron Mohan MD Unavailable Pebbles Felton MD Unavailable [phone] Encounter Details Date Type Department Care Team (Late st Contact Info) Description 12/08/2020 Telephone [facility] [address] [facility] [address] [place] [address] Francisco Long MD [address] [place] [address] [address] [place] [address] Social History Tobacco Use [...] file Legal Sex Female 12:21 PM ENERGY AUDITOR Gender Identity Not on file Sexual Orientation Not on file documented as of this encounter Miscellaneous Notes * Addendum Note - Kae Burton - 01/03/2021 9:15 AM CSTAddended by: KAE BURTON on: 01/03/2021 09:15 AM Modules accepted: Orders GY AUDITOR * Addendum Note - Kae Burton - 01/03/2021 9:14 AM CSTAddended by: KAE BURTON on: 01/03/2021 09:14 AM Modules accepted: Orders GY AUDITOR * Addendum Note - Yuli Coffman - 12/08/2020 10:09 AM CSTAddended by: YULI COFFMAN on: 12/08/2020 10:09 AM Modules accepted: Orders GY AUDITOR * Addendum Note - Yuli Coffman - 12/08/2020 10:08 AM CSTAddended by: YULI COFFMAN on: 12/08/2020 10:08 AM Modules accepted: Orders GY AUDITOR * Telephone Encounter - Yuli Coffman - 12/08/2020 10:05 AM CST Opened in error GY AUDITOR documented in this encounter Plan of Treatment Not on file documented as of this encounter Results * Iron profile w/ IBC (01/03/2021 9:19 AM ENERGY AUDITOR) Iron 125 35 - 145 mcg/dL [facility]) TIBC 366 250 - 400 mcg/dL [facility]) Transferrin saturation 34 20 - 50 % [facility]) Blood specimen (specimen) 01/03/2021 9:19 AM ENERGY AUDITOR 01/03/2021 10:17 AM ENERGY AUDITOR us Francisco Long MD LAB BLOOD ORDERABLES Final Res ult [facility] [address] [facility] Department [place] [address] documented in this encounter Visit Diagnoses Diagnosis Anemia, unspecified type- Primary documented in this encounter Orders Lab Orders Without Results Count Last Ordered D ate First Ordered Date CBC WITH AUTO DIFFERENTIAL 1 12/08/2020 documented in this encounter Additional Health Concerns Infection Onset Date Last Indicated Resolved Time COVID: Suspected 12/28/2020 12/28/2020 12/29/2020 7:21 AM ENERGY AUDITOR Respiratory Infection (TITI), contact + droplet Comment:Automatically added due to negative COVID-19 result. 12/29/2020 12/29/2020 01/12/2021 3:0 6 AM ENERGY AUDITOR documented as of this encounter Care Teams Wick Tender Relationship Specialty Start Date End Date Francisco Long MD PCP - General 02/23/17 05/15/22 Neil Ag MD PhD 6 [place] [address] Radiation Oncologist Radiation Oncology 12/17/18 [place] [address] [address] [facility] [address] [place] [address] Referring Physician General Surgery 12/17/18 [place] [address] [address] [facility] [address] [place] [address] Medical Oncologist/Forger Helper Medical Oncology 12/17/18 [place] [address] [address] Consulting Physician Gastroenterology 01/07/20 documented as of this encounter
--- OUTSIDE RECORDS SUMMARY | 2024-11-16 15:35 | XMS_ITS | Encounter Summary ---
Author Organization [facility] Medical Group Address [address] [facility] [address] [place] [address] Care Team Providers Care Polish Compounder Name Role Phone Francisco Long MD Primary Care Provider [phone] Neil Ag MD PhD Unavailable [phone] Ita Vazquez MD Unavailable Caron Mohan MD Unavailable [phone] Pebbles Felton MD Unavailable [phone] Reason for Visit * Reason Comments Medicare Annual Wellness Visit 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 she no children her [...] doctor on a regular basis sees her employment services director yearly Her current medications Protonix 40 mg [...] uterus documented in this encounter Care Teams Polish Compounder Relationship Specialty Start Date End Date Francisco Long MD PCP - General 02/23/17 05/15/22 Neil Ag MD PhD 6 [place] [address] Radiation Oncologist Radiation Oncology 12/17/18 [place] [address] [place] [id number] Referring Physician General Surgery 12/17/18 [place] [address] [address] [facility] 120 [facility] [address] Medical Oncologist/Waitstaff Captain Medical Oncology 12/17/18 [place] [address] [address] [facility] 120 [place] [address] Consulting Physician Gastroenterology 01/07/20 documented as of this encounter
--- OUTSIDE RECORDS SUMMARY | 2024-11-16 15:35 | XMS_ITS | Encounter Summary ---
Author Organization [facility] Medical Group Address [address] [facility] [address] [place] [address] Care Team Providers Care Esl Instructional Assistant Name Role Phone Francisco Long MD Primary Care Provider [phone] Neil Ag MD PhD Unavailable [phone] [facility] MD Unavailable Caron Mohan MD Unavailable Pebbles Felton MD Unavailable [phone] Reason for Referral * Diagnostic Imaging (Routine) - Closed Specialty Diagnoses / Procedures Referred By Contac t Referred To Contact Procedures XR Chest Pa Lateral 2 Views [facility] [address] [place] [address] [address] [place] [address] Phone: tel: fax: Referral ID Status Reason Start Date Expiration Date Visits Re quested Visits Authorized [id number] Closed 09/09/2020 10/09/2021 1 1 Encounter Details Date Type Department Care Team (Late st Contact Info) Description 09/09/2020 Orders Only [facility] [address] [place] [address] [address] [place] [address] Annabelle Dumont MD [facility] [place] [address] Social History Tobacco Use Types [...] on file 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 Gender Identity Not on file Sexual [...] on filedocumented in this encounter Care Teams Esl Instructional Assistant Relationship Specialty Start Date End Date Francisco Long MD PCP - General 02/23/17 05/15/22 Neil Ag MD PhD 6 [place] [address] Radiation Oncologist Radiation Oncology 12/17/18 [place] [address] [facility] [address] [place] [address] Referring Physician General Surgery 12/17/18 [place] [address] [address] [facility] 120 [place] [address] Medical Oncologist/Mac Artist Medical Oncology 12/17/18 [place] [address] [address] [facility] 120 [place] [address] Consulting Physician Gastroenterology 01/07/20 documented as of this encounter
--- OUTSIDE RECORDS SUMMARY | 2024-11-16 15:35 | XMS_ITS | Encounter Summary ---
Author Organization [facility] Medical Group Address [address] [facility] [address] [place] [address] Care Team Providers Care Head Bellhop Captain Name Role Phone Francisco Long MD Primary Care Provider [phone] Neil Ag MD PhD Unavailable [phone] Ita Vazquez MD Unavailable Caron Mohan MD Unavailable [phone] Pebbles Felton MD Unavailable [phone] Reason for Visit * Reason Comments Hypertension Hyperlipidemia Encounter Details Date Type Department Care Team (Late st Contact Info) Description 11/01/2020 10:00 AM UNDERGROUND BOLTING MACHINE OPERATOR Office Visit [facility] [address] [facility] [address] [place] [address] Francisco Long MD [address] [place] [address] [address] [place], [place] [id number] Pre-diabetes (Primary Dx); Need for immunization against influenza; Recurrent pulmonary emboli (CMS/HCC); Essential hypertension; Mixed hyperlipidemia Social History Tobacco Use Types [...] on file 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 Gender Identity Not on file Sexual Orientation Not on file documented as of this encounter Last Filed Vital Signs Vital Sign Reading Time Taken Comments Blood Pressure 128/70 11/01/2020 10:15 AM UNDERGROUND BOLTING MACHINE OPERATOR Pulse 64 11/01/2020 10:15 AM UNDERGROUND BOLTING MACHINE OPERATOR Temperature - - Respiratory Rate 20 11/01/2020 10:15 AM UNDERGROUND BOLTING MACHINE OPERATOR Oxygen Saturation - - Inhaled Oxygen Concentration - - Weight 84.8 kg (187 lb) 11/01/2020 10:15 AM UNDERGROUND BOLTING MACHINE OPERATOR Height 170.2 cm (5' 7 ) 11/01/2020 10:15 AM UNDERGROUND BOLTING MACHINE OPERATOR Body Mass Index 29.29 11/01/2020 10:15 AM UNDERGROUND BOLTING MACHINE OPERATOR documented in this encounter Progress Notes * Francisco Long MD - 11/01/2020 10:00 AM CST Subjective/Objective Patient ID: Jolene Cedillo is a 74 y.o. female. Chief Complaint Hypertension and Hyperlipidemia HPI Have seen today follow-up high blood pressure hyper lipid she states she is not taking her statin therapy states he cause too much muscle pain muscle weakness when she was taking it daily she has nottried some less often dosage she is willing to try it once a week the maybe increased twice a week if she can tolerate it she states she quit taking her antiestrogen anti cancer breast cancer drug but she is agreeable with resume that and until she discusses with Hematology Oncology next month she states she was told that it causes osteo porosis and we went over the side effects this medication with her at length today to could cause some bone loss and the patient has been compliant with calcium vitamin-D and bone density testing Review of Systems Vitals: 11/01/20 1015 BP: 128/70 BP Location: Left arm Patient Position: Sitting Pulse: 64 Resp: 20 Weight: 84.8 kg (187 lb) Height: 170.2 cm (5' 7 ) Physical Exam She is pleasant no distress the nose those remarkable neck is supple lungs clear abdomen soft nontender Assessment/Plan Diagnoses and all orders for this visit: Pre-diabetes (Primary) Need for immunization against influenza - Flu Vaccine Quad High Dose PF 65Y+ IM - Fluzone High Dose Quad Recurrent pulmonary emboli (CMS/HCC) Essential hypertension Mixed hyperlipidemia Flu shot today resume statin therapy work harder on diet exercise get her sugar down follow-up in 6months Side effects, risks, interactions reviewed with patient. Indications for testing discussed. Any further problems to contact us. She was told what to look out for and verbalized understanding. The patient was given the opportunity to have all questions answered today and was in agreement with the plan of care. RGROUND BOLTING MACHINE OPERATOR RGROUND BOLTING MACHINE OPERATOR documented in this encounter Plan of Treatment Not on file documented as of this encounter Visit Diagnoses Diagnosis Pre-diabetes- Primary Other abnormal glucose Need for immunization against influenza Need for prophylactic vaccination and inoculation against influenza Recurrent pulmonary emboli (CMS/HCC) (HCC) Essential hypertension Unspecified essential hypertension Mixed hyperlipidemia documented in this encounter Discontinued Medications Medication Sig Discontinue Reason Start Date End Da te losartan (COZAAR) 100 mg tablet Take 100 mg by mouth daily Duplicate order 07/28/2020 11/01/[address] (PROTONIX) 40 mg EC tablet Take 1 tablet (40 mg total) by mouth daily 01/08/2020 11/01/2020 documented as of this encounter Orders Immunization/Injection Count Last Ordered Date First Ordered Date FLU VACCINE HIGH DOSE QUAD P F 65Y+ IM - FLUZONE HIGH DOS 1 11/01/2020 documented in this encounter Care Teams Head Bellhop Captain Relationship Specialty Start Date End Date Francisco Long MD PCP - General 02/23/17 05/15/22 Neil Ag MD PhD [address] [place] [address] Radiation Oncologist Radiation Oncology 12/17/18 [place] [address] [facility] [address] [place] [address] Referring Physician General Surgery 12/17/18 [place] [address] [facility] [address] [place], [place] [address] Medical Oncologist/Crate Tier Medical Oncology 12/17/18 [place] [address] [facility] [address] [place], [place] [address] Consulting Physician Gastroenterology 01/07/20 documented as of this encounter
--- OUTSIDE RECORDS SUMMARY | 2024-11-16 15:35 | XMS_ITS | Encounter Summary ---
Author Organization [facility] Medical Group Address [address] [facility] [address] [place] [address] Care Team Providers Care Certified Ophthalmic Surgical Assistant Name Role Phone Fracnisco Long MD Primary Care Provider [phone] Neil Ag MD PhD Unavailable [phone] Ita estrada MD Unavailable Caron Mohan MD Unavailable Pebbles Felton MD Unavailable [phone] Encounter Details Date Type Department Care Team (Late st Contact Info) Description 06/21/2020 Orders Only [facility] [address] [facility] [address] [place] [address] Francisco Long MD [address] [place] [address] [address] [place] [address] Social History Tobacco Use Types [...] on file 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 See Note 1 Note 1 For additional information, please refer to http://reeplay.it.FameBit/faq/JDH966 (This link is being provided for informational/ educational purposes only.) 06/21/2020 8:21 AM CDT 06/21/2020 8:25 AM CDT Narrative [facility] - 06/22/2020 7:12 AM CDT FASTING:YES FASTING: YES us Francisco Long MD LAB BLOOD ORDERABLES Final Res ult Performing Organization Address [facility]/ZIP Co de Phone Number [facility] [address] [place] [address] * Ferritin (06/21/2020 8:21 AM CDT) Ferritin 104 16 - 288 ng/mL [email or web address] exa 06/21/2020 8:21 AM CDT 06/21/2020 8:25 AM CDT Narrative [facility] - 06/22/2020 7:12 AM CDT FASTING:YES FASTING: YES Francisco Long MD LAB BLOOD ORDERABLES Final Res ult Performing Organization Address [facility] Co de Phone Number [email or web address] [address] [place] [address] * (ABNORMAL) Comprehensive metabolic panel (06/21/2020 8:21 [...] approximately 13% higher for people identified as -[place]ese. eGFR NON-AFR. CENTRAL AFRICAN 57(L) > OR = 60 mL/min/1. 73m2 [...] BLOOD ORDERABLES Final Res ult [facility] [address] [place] [phone] * (ABNORMAL) Iron profile w/ IBC (06/21/2020 [...] BLOOD ORDERABLES Final Res ult [facility] [address] [address] [facility] [place] [address] * (ABNORMAL) Lipid panel with reflex to [...] LDL-C. Harry SS et al. RANDALL. 2013;310(19): 8147-4410 (http://education.PSYLIN NEUR[employer]ES.Open Learning/faq/QEP354) Chol/HDL ratio 4.2 <5.0 (calc) [facility] [...] BLOOD ORDERABLES Final Res ult [facility] [address] [place] [phone] * (ABNORMAL) CBC with auto differential (06/21/2020 [...] ORDERABLES Final Res ult Performing Organization Address [facility] de Phone Number [facility] [address] [place] [phone] * Urinalysis reflex to microscopic (06/21/2020 8:21 [...] ORDERABLES Final Res ult Performing Organization Address [facility] Co de Phone Number [facility] [address] [address] [place], [place] [address] documented in this encounter Visit Diagnoses Not on filedocumented in this encounter Care Teams Certified Ophthalmic Surgical Assistant Relationship Specialty Start Date End Date Francisco Long MD PCP - General 02/23/17 05/15/22 Neil Ag MD PhD 6 [place] [address] Radiation Oncologist Radiation Oncology 12/17/18 [place] [address] [facility] 120 [place], [place] [address] Referring Physician General Surgery 12/17/18 [place] [address] [facility] 120 [place], [place] [address] Medical Oncologist/Distribution Manager Medical Oncology 12/17/18 [place] [address] [facility] 120 [place] [address] Consulting Physician Gastroenterology 01/07/20 documented as of this encounter
--- OUTSIDE RECORDS SUMMARY | 2024-11-16 15:35 | XMS_ITS | Encounter Summary ---
Author Organization [facility] Medical Group Address [address] [facility] [address] [place] [address] Care Team Providers Care Senior Net Software Developer Name Role Phone Francisco Long MD Primary Care Provider [phone] Neil Ag MD PhD Unavailable [phone] Ita Vazquez MD Unavailable Caron Mohan MD Unavailable Pebbles Felton MD Unavailable [phone] Encounter Details Date Type Department Care Team (Late st Contact Info) Description 09/24/2020 Telephone [facility] 2 [facility] [address] [place] [address] Francisco Long MD [address] [place] [address] 220 [place] [address] Social History Tobacco Use Types [...] on file 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 Gender Identity Not on file Sexual Orientation Not on file documented as of this encounter Miscellaneous Notes * Telephone Encounter - Jami Pettit MA - 09/27/2020 1:48 PM FACILITY MAINTENANCE SUPERVISOR Patient aware LITY MAINTENANCE SUPERVISOR * Telephone Encounter - Francisco Long MD - 09/27/2020 7:52 AM CST Will discuss November 01 LITY MAINTENANCE SUPERVISOR * Telephone Encounter - Jami Pettit [...] filedocumented in this encounter Care Teams Senior Net Software Developer Relationship Specialty Start Date End Date Francisco Long MD PCP - General 02/23/17 05/15/22 Neil Ag MD PhD 6 [place] [address] Radiation Oncologist Radiation Oncology 12/17/18 [place] [address] [facility] 120 [place] [address] Referring Physician General Surgery 12/17/18 [place] [address] [facility] 120 [place] [address] Medical Oncologist/Field Service Consultant Medical Oncology 12/17/18 [place] [address] [facility] [address] [place] [address] Consulting Physician Gastroenterology 01/07/20 documented as of this encounter
--- OUTSIDE RECORDS SUMMARY | 2024-11-16 15:35 | XMS_ITS | Encounter Summary ---
Author Organization [facility] Medical Group Address [address] [facility] [address] [place] [address] Care Team Providers Care Peanut Sheller Name Role Phone Francisco Long MD Primary Care Provider [phone] Neil Ag MD PhD Unavailable [phone] [facility] Unavailable Caron Mohan MD Unavailable Pebbles Felton MD Unavailable [phone] Reason for Referral * Diagnostic Imaging (Routine) - Closed Specialty Diagnoses / Procedures Referred By Contac t Referred To Contact Procedures XR Chest Pa Lateral 2 Views [facility] [address] [place] [address] [address] [place] [address] Phone: tel: fax: Referral ID Status Reason Start Date Expiration Date Visits Re quested Visits Authorized [id number] Closed 09/03/2020 10/03/2021 1 1 Encounter Details Date Type Department Care Team (Late st Contact Info) Description 09/03/2020 Orders Only [facility] [address] [place] [address] [address] [place] [address] Annabelle Dumont MD [facility] [place] [address] Social History Tobacco Use Types [...] file 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 Gender Identity Not on file Sexual [...] on filedocumented in this encounter Care Teams Peanut Sheller Relationship Specialty Start Date End Date Francisco Long MD PCP - General 02/23/17 05/15/22 Neil Ag MD PhD 6 [place] [address] Radiation Oncologist Radiation Oncology 12/17/18 [place] [address] [facility] [address] [place] [address] Referring Physician General Surgery 12/17/18 [place] [address] [address] [facility] 120 [place] [address] Medical Oncologist/Instrument/Control Technician Medical Oncology 12/17/18 [place] [address] [address] [facility] 120 [place] [id number] Consulting Physician Gastroenterology 01/07/20 documented as of this encounter
--- OUTSIDE RECORDS SUMMARY | 2024-11-16 15:35 | XMS_ITS | Encounter Summary ---
Author Organization [facility] Medical Group Address [address] [place] [address] Care Team Providers Care Unit Tender Name Role Phone Francisco Long MD Primary Care Provider [phone] Neil Ag MD PhD Unavailable [phone] Ita estrada MD Unavailable Caron Mohan MD Unavailable Pebbles Felton MD Unavailable [phone] Encounter Details Date Type Department Care Team (Late st Contact Info) Description 07/02/2020 Orders Only [facility] [address] [facility] [address] [place] [address] Francisco Long MD [address] [place] [address] [address] [place] [address] Social History Tobacco Use [...] on file 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 [address] [place], [place] [address] Referring Physician General Surgery 12/17/18 [place] [address] [address] Medical Oncologist/Sausage Smoker Medical Oncology 12/17/18 [place] [address] [address] Consulting Physician Gastroenterology 01/07/20 documented as of this encounter
--- OUTSIDE RECORDS SUMMARY | 2024-11-16 15:35 | XMS_ITS | Encounter Summary ---
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 Gender Identity Not on file Sexual [...] on filedocumented in this encounter Care Teams Rn Discharge Relationship Specialty Start Date End Date Francisco Long MD PCP - General 02/23/17 05/15/22 Neil Ag MD PhD 6 [place] [address] Radiation Oncologist Radiation Oncology 12/17/18 [place] [address] [facility] [address] [place] [id number] Referring Physician General Surgery 12/17/18 [place] [address] [facility] [address] [place] [address] Medical Oncologist/Underground Heavy Equipment Operator Medical Oncology 12/17/18 [place] [address] [facility] [address] [place] [id number] Consulting Physician Gastroenterology 01/07/20 documented as of this encounter
--- OUTSIDE RECORDS SUMMARY | 2024-11-16 15:35 | XMS_ITS | Encounter Summary ---
Author Organization [facility] Medical Group Address [address] [facility] [address] [place] [address] Care Team Providers Care Contact Worker Lithography Name Role Phone Francisco Long MD Primary Care Provider [phone] Neil Ag MD PhD Unavailable [phone] Ita estrada MD Unavailable Caron Mohan MD Unavailable Pebbles Felton MD Unavailable [phone] Encounter Details Date Type Department Care Team (Late st Contact Info) Description 07/01/2020 Orders Only [facility] 2 [facility] [address] [place] [address] Francisco Long MD [address] [place] [address] 220 [place] [address] Essential hypertension (Primary Dx); Mixed [...] on file 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 Gender Identity Not on file Sexual Orientation Not on file documented as of this encounter Plan of Treatment Not on file documented as of this encounter Procedures Procedure Name Priority Date/Time Associated Diagnosis Comments LIPID PANEL WITH REFLEX TO DIRECT LDL Routine 10/18/2020 8:46 AM LIGHT RAIL VEHICLE OPERATOR Essential hypertension Mixed hyperlipidemia Encounter for therapeutic drug monitoring IRON PROFILE W/ IBC Routine 10/18/2020 8 :46 AM LIGHT RAIL VEHICLE OPERATOR Essential hypertension Mixed hyperlipidemia Iron deficiency Encounter for therapeutic drug monitoring MAGNESIUM Routine 10/18/2020 8:46 AM LIGHT RAIL VEHICLE OPERATOR Essential hypertension Mixed hyperlipidemia Encounter for therapeutic drug monitoring HEPATIC FUNCTION PANEL Routine 10/18/2020 8:46 AM LIGHT RAIL VEHICLE OPERATOR Essential hypertension Mixed hyperlipidemia Encounter for therapeutic drug monitoring BASIC METABOLIC PANEL Routine 10/18/2020 8:46 AM LIGHT RAIL VEHICLE OPERATOR Essential hypertension Mixed hyperlipidemia Encounter for therapeutic drug monitoring documented in this encounter Results * Iron profile w/ IBC (10/18/2020 8:46 AM LIGHT RAIL VEHICLE OPERATOR) Iron 88 45 - 160 mcg/dL [facility] TIBC 361 250 - 450 mcg/dL (calc) [facility] Iron saturation 24 16 - 45 % (calc) [facility] Blood specimen (specimen) 10/18/2020 8:46 AM LIGHT RAIL VEHICLE OPERATOR 10/18/2020 8:47 AM LIGHT RAIL VEHICLE OPERATOR Narrative [facility] - 10/19/2020 5:27 AM LIGHT RAIL VEHICLE OPERATOR FASTING:YES FASTING: YES us Francisco Long MD LAB BLOOD ORDERABLES Final Res ult [facility] [address] [address] [place] [address] * (ABNORMAL) Basic metabolic panel (10/18/2020 8:46 AM LIGHT RAIL VEHICLE OPERATOR) Glucose 124(H) 65 - 99 mg/dL [facility] Comment: ? Fasting reference interval For someone without known diabetes, a glucose value between 100 and 125 mg/dL is consistent with prediabetes and should be confirmed with a follow-up test. BUN 19 7 - 25 mg/dL [facility] Creatinine 0.93 0.60 - 0.93 mg/dL [facility] Comment: For patients >49 years of age, the reference limit for Creatinine is approximately 13% higher for people identified as -Hungarian. eGFR NON-AFR. IRAQI 61 > OR = 60 mL/min/1 .73m2 [facility] EGFR 71 > OR = 60 mL/min/1 .73m2 [facility] BUN/creat ratio NOT APPLICABLE 6 - 22 (calc) [facility] Sodium 140 135 - 146 mmol/L [facility] Potassium, pl 4.2 3.5 - 5.3 mmol/L [facility] Chloride 101 98 - 110 mmol/L [facility] CO2 29 20 - 32 mmol/L [facility] Calcium 9.3 8.6 - 10.4 mg/dL [facility] Blood specimen (specimen) 10/18/2020 8:46 AM LIGHT RAIL VEHICLE OPERATOR 10/18/2020 8:47 AM LIGHT RAIL VEHICLE OPERATOR Narrative [facility] - 10/19/2020 5:27 AM LIGHT RAIL VEHICLE OPERATOR FASTING:YES FASTING: YES us Francisco Long MD LAB BLOOD ORDERABLES Final Res ult [facility] [address] [place] [phone] * (ABNORMAL) Lipid panel with reflex to direct LDL (10/18/2020 8:46 AM LIGHT RAIL VEHICLE OPERATOR) Cholesterol 275(H) <200 mg/dL [facility] [...] LDL-C. Harry YUAN et al. RANDALL. 2013;310(19): 4134-5059 (http://education.Nottingham Technology/faq/PRS679) Chol/HDL ratio 4.5 <5.0 (calc) [facility] Non-HDL, (LDL+VLDL) 214(H) <130 mg/dL (calc) [facility] Comment: For patients with diabetes plus 1 major ASCVD risk factor, treating to a non-HDL-C goal of <100 mg/dL (LDL-C of <70 mg/dL) is considered a therapeutic option. Blood specimen (specimen) 10/18/2020 8:46 AM LIGHT RAIL VEHICLE OPERATOR 10/18/2020 8:47 AM LIGHT RAIL VEHICLE OPERATOR Narrative [facility] - 10/19/2020 5:27 AM LIGHT RAIL VEHICLE OPERATOR FASTING:YES FASTING: YES Francisco Long MD LAB BLOOD ORDERABLES Final Res ult [facility] [address] [place] [address] * Magnesium (10/18/2020 8:46 AM LIGHT RAIL VEHICLE OPERATOR) Magnesium 2.0 1.5 - 2.5 mg/dL [facility] Blood specimen (specimen) 10/18/2020 8:46 AM LIGHT RAIL VEHICLE OPERATOR 10/18/2020 8:47 AM LIGHT RAIL VEHICLE OPERATOR Narrative [facility] - 10/19/2020 5:27 AM LIGHT RAIL VEHICLE OPERATOR FASTING:YES FASTING: YES us Francisco Long MD LAB BLOOD ORDERABLES Final Res ult [facility] [address] [place] [address] * Hepatic function panel (10/18/2020 8:46 AM LIGHT RAIL VEHICLE OPERATOR) Protein, Total 6.6 6.4 - 8.4 [...] [facility] Blood specimen (specimen) 10/18/2020 8:46 AM LIGHT RAIL VEHICLE OPERATOR 10/18/2020 8:47 AM LIGHT RAIL VEHICLE OPERATOR Narrative [facility] - 10/19/2020 5:27 AM LIGHT RAIL VEHICLE OPERATOR FASTING:YES FASTING: YES us Francisco Long MD LAB BLOOD ORDERABLES Final Res ult Performing Organization Address [facility] de Phone Number [facility] [address] [place] [address] documented in this encounter Visit Diagnoses Diagnosis Essential hypertension- Primary Unspecified essential hypertension Mixed hyperlipidemia Iron deficiency anemia due to chronic blood loss Iron deficiency anemia secondary to blood loss (chronic) Iron deficiency Disorders of iron metabolism Encounter for therapeutic drug monitoring documented in this encounter Care Teams Contact Worker Lithography Relationship Specialty Start Date End Date Francisco Long MD PCP - General 02/23/17 05/15/22 Neil Ag MD PhD 6 [place] [address] Radiation Oncologist Radiation Oncology 12/17/18 [place] [address] [facility] [address] [employer], [place] [address] Referring Physician General Surgery 12/17/18 [place] [address] [address] [facility] [address] [place], [place] [address] Medical Oncologist/River Captain Medical Oncology 12/17/18 [place] [address] [facility] [address] [place], [place] [address] Consulting Physician Gastroenterology 01/07/20 documented as of this encounter
--- OUTSIDE RECORDS SUMMARY | 2024-11-16 15:35 | XMS_ITS | Encounter Summary ---
Author Organization [facility] Medical Group Address [address] [facility] [address] [place] [address] Care Team Providers Care Regional Sales Representative Name Role Phone Francisco Long MD Primary Care Provider [phone] Neil Ag MD PhD Unavailable [phone] Ita estrada MD Unavailable Caron Mohan MD Unavailable Pebbles Felton MD Unavailable [phone] Reason for Referral * Diagnostic Imaging (Routine) - Closed Specialty Diagnoses / Procedures Referred By Contac t Referred To Contact Diagnoses Vitamin D deficiency Screening for osteoporosis Post-menopausal Procedures Dexa Axial Skeleton Bone Density 1 or 2 Site Francisco Long MD Phone: tel: fax: [address] [address] Referral ID Status Reason Start Date Expiration Date Visits Re quested Visits Authorized [id number] Closed 11/01/2020 12/01/2021 1 1 BLASTER PAINT SPRAYER Encounter Details Date Type Department Care Team (Late st Contact Info) Description 11/01/2020 Orders Only [facility] [address] [address] Francisco Long MD [address] [place] [address] Essential hypertension (Primary Dx); Pre-diabetes; Mixed hyperlipidemia; [...] on file 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 Supervisor Of Research/Model: ?? UannaBe SL (S/N [id number]) CLINICAL INFORMATION: ??Current height: ??67 inches ? [...] AM T: ??06/28/2021 9:59 AM Report ID: [id number] Reading Location: ??[id number] Procedure Note Berry Whitfield MD - 06/28/2021 EXAM DESCRIPTION: DEXA AXIAL SKELETON BONE DENSITY 1 OR MORE SITES REASON FOR STUDY: 75 year old female with given history ofpostmenopausal screening. Supervisor Of Research/Model: UannaBe SL (S/N [id number]) CLINICAL INFORMATION: Current height: 67 inches Maximum [...] by Berry Whitfield M.D., MD: Report ID: [id number] Reading Location: [place] [address] Francisco Long MD IMG DXA PROCEDURES Final Resul t * (ABNORMAL) Vitamin D 25 hydroxy (05/16/2021 8:33 AM CDT) [facility] Vitamin D 25-OH 27(L) 30 - 100 ng/mL [facility] Comment: Vitamin D Status ? 25-OH Vitamin D: Deficiency: ?<20 ng/mL Insufficiency: ? 20 - 29 ng/mL Optimal: ? > or = 30 ng/mL For 25-OH Vitamin D testing on patients on D2-supplementation and patients for whom quantitation of D2 and D3 fractions is required, the [facility](TM) 25-OH VIT D, (D2,D3), LC/MS/MS is recommended: order code 91788 (patients >2yrs). See Note 1 Note 1 For additional information, please refer to http://Garlik.iSquare/faq/VFP075 (This link is being provided for informational/ educational purposes only.) Blood specimen (specimen) 05/16/2021 8:33 AM CDT 05/16/2021 8:34 AM CDT Narrative [facility] - 05/17/2021 7:54 AM CDT FASTING:YES FASTING: YES Francisco Long MD LAB BLOOD ORDERABLES Final Res ult [facility] [address] [place] [address] * (ABNORMAL) Lipid panel with reflex to [...] LDL-C. Harry YUAN et al. RANDALL. 2013;310(19): 2357-7408 (http://education.Publicate.Fazland/faq/WXQ647) Chol/HDL ratio 2.7 <5.0 (calc) [facility] [...] BLOOD ORDERABLES Final Res ult [facility] [address] [place] [address] * (ABNORMAL) Comprehensive metabolic panel (05/16/2021 8:33 AM CDT) Pathologist [facility] Glucose 151(H) 65 - 99 mg/dL [facility] Comment: ? Fasting reference interval For someone without known diabetes, a glucose value >125 mg/dL indicates that they may have diabetes and this should be confirmed with a follow-up test. BUN 18 7 - 25 mg/dL [facility] Creatinine 0.89 0.60 - 0.93 mg/dL [facility] Comment: For patients >49 years of age, the reference limit for Creatinine is approximately 13% higher for people identified as -Cypriot. eGFR NON-AFR. LIBERIAN 64 > OR = 60 mL/min/1 .73m2 [facility] EGFR 74 > OR = 60 mL/min/1 .73m2 [facility] BUN/creat ratio NOT APPLICABLE 6 - 22 (calc) [facility] Sodium 141 135 - 146 mmol/L [facility] Potassium, pl 5.3 3.5 - 5.3 mmol/L [facility] Chloride 103 98 - 110 mmol/L [facility] CO2 32 20 - 32 mmol/L [facility] Calcium 9.7 8.6 - 10.4 mg/dL [facility] Protein, sr 6.0(L) 6.1 - 8.1 g/dL [facility] Albumin 3.9 3.6 - 5.1 g/dL [facility] GLOBULIN 2.1 1.9 - 3.7 g/dL (calc) [facility] Alb/glob ratio 1.9 1.0 - 2.5 (calc) [facility] Bilirubin, total 0.6 0.2 - 1.2 mg/dL [facility] Alk phos 73 37 - 153 U/L [facility] AST 16 10 - 35 U/L [facility] ALT (SGPT) 18 6 - 29 U/L [facility] Blood specimen (specimen) 05/16/2021 8:33 AM CDT 05/16/2021 8:34 AM CDT Narrative [facility] - 05/17/2021 7:54 AM CDT FASTING:YES FASTING: YES Francisco Long MD LAB BLOOD ORDERABLES Final Res ult Performing Organization Address [facility] Co de Phone Number [facility] [address] [place] [address] * Iron profile w/ IBC (05/16/2021 8:33 [...] ult Performing Organization Address City/[facility]/ZIP Co de Phone Number [facility] [address] [facility] [place] [address] * (ABNORMAL) CBC with auto differential (05/16/2021 [...] LAB BLOOD ORDERABLES Final Res ult [facility] [address] [place] [phone] documented in this encounter Visit Diagnoses Diagnosis [...] (natural) documented in this encounter Care Teams Regional Sales Representative Relationship Specialty Start Date End Date Francisco Long MD PCP - General 02/23/17 05/15/22 Neil Ag MD PhD 6 [place] [address] Radiation Oncologist Radiation Oncology 12/17/18 [place] [address] [place], [place] [id number] Referring Physician General Surgery 12/17/18 [place] [address] [place], [place] [id number] Medical Oncologist/Tube Backer Medical Oncology 12/17/18 [place] [address] [place], [place] [id number] Consulting Physician Gastroenterology 01/07/20 documented as of this encounter
--- OUTSIDE RECORDS SUMMARY | 2024-11-16 15:35 | XMS_ITS | Encounter Summary ---
Author Organization [facility] Medical Group Address [address] [place] [address] Care Team Providers Care Draw Off Worker Name Role Phone Francisco Long MD Primary Care Provider [phone] Neil Ag MD PhD Unavailable [phone] Ita estrada MD Unavailable Caron Mohan MD Unavailable Pebbles Felton MD Unavailable [phone] Encounter Details Date Type Department Care Team (Late st Contact Info) Description 05/10/2020 Orders Only [place] [facility] [address] [facility] [address] [place] [address] Francisco Long MD [address] [place] [address] [address] [place] [address] Social History Tobacco Use Types [...] on file 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 Gender Identity Not on file Sexual [...] on filedocumented in this encounter Care Teams Draw Off Worker Relationship Specialty Start Date End Date Francisco Long MD PCP - General 02/23/17 05/15/22 Neil Ag MD PhD 6 [place] [address] Radiation Oncologist Radiation Oncology 12/17/18 [place] [address] [facility] [address] [facility] [employer], [place] [id number] Referring Physician General Surgery 12/17/18 [place] [address] [facility] [address] [employer], [place] [id number] Medical Oncologist/Certified Credit Counselor Medical Oncology 12/17/18 [place] [address] [facility] [address] [place] [address] Consulting Physician Gastroenterology 01/07/20 documented as of this encounter
--- OUTSIDE RECORDS SUMMARY | 2024-11-16 15:35 | XMS_ITS | Encounter Summary ---
Author Organization [facility] Healthcare Address [address] [place] [address] Care Team Providers Care Engraver Apprentice Decorative Name Role Phone Francisco Long MD Primary Care Provider Neil Ag MD PhD Unavailable [phone] Ita Vazquez MD Unavailable Caron Mohan MD Unavailable Pebbles Felton MD Unavailable [phone] Encounter Details Date Type Department Care Team (Late st Contact Info) Description 05/27/2020 10:30 AM CDT Office Visit [facility] Radiation Oncology [address] [place] [address] Neil Ag MD PhD [address] [place] [address] Malignant neoplasm of upper-inner quadrant of left [...] on file 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 Gender Identity Not on file [...] Body Mass Index 28.88 01/30/2020 9:53 AM POUNCING MACHINE OPERATOR documented in this encounter Patient Instructions * [...] often with soap and water, or alcohol-based hand-oracle architect - For the most current and up to date information, we would recommend accessing the following link for the Centers for Disease Control (CDC): www.cdc.gov/coronavirus For patients who are starting radiation therapy or currently receiving radiation: - If you have any symptoms such as fever, cough, shortness of breath, or any other flu-like symptoms, please call the hospital oil and gas well treatment operator at [phone] and ask for the [facility] hotline. Hotline personnel will screen the patients [...] IA (pT1b, pN1mi(sn), cM0, G2, ER: Positive, CO: Positive, HER2: Negative) - Signed by Neil Ag MD PhD on 12/17/2018 Treatment Intent: adjuvant Jolene Cedillo is a 74 y.o. 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, ER/CO positive, HER2 negative who is status post [...] Primary documented in this encounter Care Teams Engraver Apprentice Decorative Relationship Specialty Start Date End Date Francisco Long MD PCP - General 02/23/17 05/15/22 Neil Ag MD PhD 6 [place] [address] Radiation Oncologist Radiation Oncology 12/17/18 [place] [address] [facility] [address] [place] [address] Referring Physician General Surgery 12/17/18 [place] [address] [facility] [address] [place], [place] [address] Medical Oncologist/Alterations Sewer Medical Oncology 12/17/18 [place] [address] [address] [facility] [address] [place] [address] Consulting Physician Gastroenterology 01/07/20 documented as of this encounter
--- OUTSIDE RECORDS SUMMARY | 2024-11-16 15:36 | XMS_ITS | Encounter Summary ---
Author Organization [facility] Medical Group Address [address] [facility] [address] [place] [address] Care Team Providers Care Mask Former Name Role Phone Francisco Long MD Primary Care Provider [phone] Neil Ag MD PhD Unavailable [phone] Ita estrada MD Unavailable Caron Mohan MD Unavailable [phone] Pebbles Felton MD Unavailable [phone] Encounter Details Date Type Department Care Team (Late st Contact Info) Description 02/02/2020 Orders Only [place] [facility] [address] [facility] [address] [place] [address] Francisco Long MD [address] [place] [address] [address] [place] [address] Social History Tobacco Use Types [...] on file 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 Gender Identity Not on file Sexual Orientation Not on file documented as of this encounter Plan of Treatment Not on file documented as of this encounter Procedures Procedure Name Priority Date/Time Associated Diagnosis Comments HEMOGLOBIN AND HEMATOCRIT Routine 02/02/2020 10:12 AM CDT documented in this encounter Results * (ABNORMAL) Hemoglobin and hematocrit (02/02/2020 10:12 AM CDT) Hgb 10.5(L) 11.7 - 15.5 g/dL [facility] [place] Hct 35.4 35.0 - 45.0 % [facility] [place] 02/02/2020 10:1 2 AM CDT 02/02/2020 10:15 AM CDT Narrative Resulting Agency Comment Performing Organization Information: ?Site ID: [id number] ?Name: [facility] ?[facility] [address] [facility] [place] [address] ?Director: Alex Garcia D.O., MPH us Francisco Long MD LAB BLOOD ORDERABLES Final Res ult [facility] [place] documented in this encounter Visit Diagnoses Not on filedocumented in this encounter Care Teams Mask Former Relationship Specialty Start Date End Date Francisco Long MD PCP - General 02/23/17 05/15/22 Neil Ag MD PhD 6 [place] [address] Radiation Oncologist Radiation Oncology 12/17/18 [place] [address] [facility] [address] [place] [address] Referring Physician General Surgery 12/17/18 [place] [address] [facility] [address] [place] [address] Medical Oncologist/Supply Chain Technician Medical Oncology 12/17/18 [place] [address] [facility] [address] [place] [address] Consulting Physician Gastroenterology 01/07/20 documented as of this encounter
--- OUTSIDE RECORDS SUMMARY | 2024-11-16 15:36 | XMS_ITS | Encounter Summary ---
Author Organization [facility] Address [address] [place] [address] Care Team Providers Care Analog Ic Design Engineer Name Role Phone Francisco Long MD Primary Care Provider [phone] Neil Ag MD PhD Unavailable [phone] Iat estrada MD Unavailable Caron Mohan MD Unavailable Pebbles Felton MD Unavailable [phone] Encounter Details Date Type Department Care Team (Late st Contact Info) Description 02/09/2020 Orders Only [place] [facility] [address] [facility] [address] [place] [address] Francisco Long MD [address] [place] [address] [address] [place] [address] Social History Tobacco Use Types [...] file 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 Gender Identity Not on file Sexual Orientation [...] CDT) Hgb 11.6(L) 11.7 - 15.5 g/dL [facility] Y[facility] 02/09/2020 9:05 AM CDT 02/09/2020 9:05 AM CDT Narrative Resulting Agency Comment Performing Organization Information: ?Site ID: [id number] ?Name: [facility] ?Address: [id number] [place] [address] [place] [address] ?Director: Alex Garcia D.O., MPH us Francisco Long MD LAB BLOOD ORDERABLES Final Res ult [facility] [place] * Hematocrit (02/09/2020 9:05 AM CDT) Hct 37.9 35.0 - 45.0 % [facility] 02/09/2020 9:05 AM CDT 02/09/2020 9:05 AM CDT Narrative Resulting Agency Comment Performing Organization Information: ?Site ID: YENNY ?Name: [facility] ?Address: [address] [id number] ?Director: Alex Garcia D.O., MPH Francisco Long MD LAB BLOOD ORDERABLES Final Res ult [facility] [place] documented in this encounter Visit Diagnoses Not on filedocumented in this encounter Care Teams Analog Ic Design Engineer Relationship Specialty Start Date End Date Francisco Long MD PCP - General 02/23/17 05/15/22 Neil Ag MD PhD 6 [place] [address] Radiation Oncologist Radiation Oncology 12/17/18 [place] [address] [facility] 120 [place], [place] [address] Referring Physician General Surgery 12/17/18 [place] [address] [facility] 120 [place], [place] [id number] Medical Oncologist/Career Services Coordinator Medical Oncology 12/17/18 [place] [address] [facility] 120 [place], [place] [id number] Consulting Physician Gastroenterology 01/07/20 documented as of this encounter
--- OUTSIDE RECORDS SUMMARY | 2024-11-16 15:36 | XMS_ITS | Encounter Summary ---
Author Organization [facility] Medical [facility] Address [address] [facility] [address] [place] [address] Care Team Providers Care Yarder Name Role Phone Francisco Long MD Primary Care Provider [phone] Neil Ag MD PhD Unavailable [phone] Ita estrada MD Unavailable Caron Mohan MD Unavailable Pebbles Felton MD Unavailable [phone] Reason for Visit * Reason Comments Thrombophilia 1 month f/u Encounter Details Date Type Department Care Team (Late st Contact Info) Description 01/30/2020 10:00 AM APPLICATIONS INTERN Office Visit [place] [facility] 2 [facility] [address] [place] [address] Francisco Long MD [address] [place] [address] 220 [place] [address] Bilateral pulmonary embolism (CMS/HCC) (Primary Dx); Body [...] on file Legal Sex Female 12:21 PM APPLICATIONS INTERN Gender Identity Not on file Sexual Orientation Not on file documented as of this encounter Last Filed Vital Signs Vital Sign Reading Time Taken Comments Blood Pressure 140/70 01/30/2020 9:53 AM APPLICATIONS INTERN Pulse 60 01/30/2020 9:53 AM APPLICATIONS INTERN Temperature - - Respiratory Rate 20 01/30/2020 9:53 AM APPLICATIONS INTERN Oxygen Saturation - - Inhaled Oxygen Concentration - - Weight 84.8 kg (187 lb) 01/30/2020 9:53 AM APPLICATIONS INTERN Height 170.2 cm (5' 7 ) 01/30/2020 9:53 AM APPLICATIONS INTERN Body Mass Index 29.29 01/30/2020 9:53 AM APPLICATIONS INTERN documented in this encounter Progress Notes * [...] [facility] Side effects, risks, interactions reviewed with patient. Indications for testing discussed. Any further problems to contact us. She was told what to look out for and verbalized understanding. The patient was given the opportunity to have all questions answered today and was in agreement with the plan of care. ICATIONS INTERN documented in this encounter Plan of Treatment Not on file documented as of this encounter Visit Diagnoses Diagnosis Bilateral pulmonary embolism (CMS/HCC) (HCC)- Primary Other pulmonary embolism and infarction Body mass index (bmi) 29.0-29.9, adult Essential hypertension Unspecified essential hypertension Iron deficiency anemia due to chronic blood loss Iron deficiency anemia secondary to blood loss (chronic) documented in this encounter Care Teams Yarder Relationship Specialty Start Date End Date Francisco Long MD PCP - General 02/23/17 05/15/22 Neil Ag MD PhD 6 [place] [address] Radiation Oncologist Radiation Oncology 12/17/18 [place] [address] [address] [facility] 120 [facility] [place] [id number] Referring Physician General Surgery 12/17/18 [place] [address] [address] [facility] 120 [facility] [place] [id number] Medical Oncologist/Thinner Sprayer Medical Oncology 12/17/18 [place] [address] [address] [facility] 120 [place] [id number] Consulting Physician Gastroenterology 01/07/20 documented as of this encounter
--- OUTSIDE RECORDS SUMMARY | 2024-11-16 15:36 | XMS_ITS | Encounter Summary ---
Author Organization [facility] Medical [facility] Address [address] [facility] [address] [place] [address] Care Team Providers Care Public Records Researcher Name Role Phone Francisco Long MD Primary Care Provider Neil Ag MD PhD Unavailable [phone] Ita Vazquez MD Unavailable Caron Mohan MD Unavailable Pebbles Felton MD Unavailable [phone] Encounter Details Date Type Department Care Team (Late st Contact Info) Description 02/13/2020 Telephone [place] [facility] [address] [facility] [address] [place] [address] Francisco Long MD [address] [place] [address] [address] [place] [address] Social History Tobacco Use Types [...] on file 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 Gender Identity Not on file Sexual [...] on filedocumented in this encounter Care Teams Public Records Researcher Relationship Specialty Start Date End Date Francisco Long MD PCP - General 02/23/17 05/15/22 Neil Ag MD PhD 6 [place] [address] Radiation Oncologist Radiation Oncology 12/17/18 [place] [address] [address] [place] [address] [place] [id number] Referring Physician General Surgery 12/17/18 [place] [address] [address] [facility] [address] [place] [id number] Medical Oncologist/Online Content Coordinator Medical Oncology 12/17/18 [place] [address] [address] [facility] [address] [place] [address] Consulting Physician Gastroenterology 01/07/20 documented as of this encounter
--- OUTSIDE RECORDS SUMMARY | 2024-11-16 15:36 | XMS_ITS | Encounter Summary ---
Author Organization 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 Gender Identity Not on file Sexual Orientation Not on file documented as of this encounter Plan of Treatment Not on file documented as of this encounter Visit Diagnoses Not on filedocumented in this encounter Care Teams Financial Systems Director Relationship Specialty Start Date End Date Francisco Long MD PCP - General 02/23/17 05/15/22 Neil Ag MD PhD 6 [place] [address] Radiation Oncologist Radiation Oncology 12/17/18 [place] [address] [address] [facility] 120 [place], [place] [address] Referring Physician General Surgery 12/17/18 [place] [address] [address] [facility] 120 [place] [address] Medical Oncologist/Numerologist Medical Oncology 12/17/18 [place] [address] [address] [facility] 120 [facility], [place] [address] Consulting Physician Gastroenterology 01/07/20 documented as of this encounter
--- OUTSIDE RECORDS SUMMARY | 2024-11-16 15:36 | XMS_ITS | Encounter Summary ---
Author Organization [facility] Healthcare Address [address] [place] [address] Care Team Providers Care Gis Instructor Name Role Phone Francisco Long MD Primary Care Provider [phone] Neil Ag MD PhD Unavailable [phone] Ita Vazquez MD Unavailable Caron Mohan MD Unavailable Pebbles Felton MD Unavailable [phone] Reason for Visit * Reason Comments OP Infusion VENOFER * Episode Based Medications (Routine) - Closed Specialty Diagnoses / Procedures Referred By Contac t Referred To Contact Diagnoses Iron deficiency anemia due to chronic blood loss Francisco oLng MD [address] [place] [address] [address] [place] [address] Phone: tel: fax: [facility] [address] [place] [address] [place] [address] Phone: tel: Referral ID Status Reason Start Date Expiration Date Visits Re quested Visits Authorized [id number] Closed 01/09/2020 07/20/2021 1 1 Encounter Details Date Type Department Care Team (Late st Contact Info) Description 01/29/2020 11:00 AM UNARMED SECURITY GUARD Infusion 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 Gender Identity Not on file Sexual Orientation Not on file documented as of this encounter Last Filed Vital Signs Vital Sign Reading Time Taken Comments Blood Pressure 136/65 01/29/2020 11:02 AM UNARMED SECURITY GUARD Pulse 74 01/29/2020 11:02 AM UNARMED SECURITY GUARD Temperature 36.9 ??C (98.4 ??F) 01/29/2020 11:[address] Respiratory Rate 20 01/29/2020 11:02 AM UNARMED SECURITY GUARD Oxygen Saturation 96% 01/29/2020 11:02 AM UNARMED SECURITY GUARD Inhaled Oxygen Concentration - - Weight - - Height - - Body Mass Index - - documented in this encounter Discharge Disposition Disposition Code Departure Means Destination Discharge to home or self care documented in this encounter Nursing Notes * Natalie Palmer RN - 01/29/2020 11:00 AM CST PATIENT ARRIVED FOR HER THIRD INFUSION OF VENOFER PER DR. LONG. ASSESSMENT NOTED. IV STARTED [id number] PER HER RIGHT AC. IRON ADMINISTERED CHARTED IN JAN. PATIENT TOLERATED INFUSION WITHOUT ANY ADVERSE EFFECTS. IV DC'D AND PATIENT DISCHARGED IN NO APPARENT DISTRESS. MED SECURITY GUARD documented in this encounter Plan of Treatment [...] mL/hr, Administer over 90 Minutes, Once, On Peidad 01/29/20 at 1130, For 1 doseIndications:Iron deficiency anemia due to chronic blood loss New Bag 01/29/2020 11:57 AM UNARMED SECURITY GUARD 300 mg 176.7 mL/hr sodium chloride 0.9% flush 10 mL 10 mL, intravenous, As needed, line care, Starting on Piedad 01/29/20 at 1053, Flush pre and post IV catheter use.Indications:Iron deficiency anemia due to chronic blood loss Given 01/29/2020 11:57 AM UNARMED SECURITY GUARD 10 mL documented in this encounter Care Teams Gis Instructor Relationship Specialty Start Date End Date Francisco Long MD PCP - General 02/23/17 05/15/22 Neil Ag MD PhD 6 [place] [address] Radiation Oncologist Radiation Oncology 12/17/18 [place] [address] [facility] 120 [place] [address] Referring Physician General Surgery 12/17/18 [place] [address] [facility] 120 [place], [place] [id number] Medical Oncologist/Shipping And Receiving Specialist Medical Oncology 12/17/18 [place] [address] [facility] 120 [place] [address] Consulting Physician Gastroenterology 01/07/20 documented as of this encounter
--- OUTSIDE RECORDS SUMMARY | 2024-11-16 15:36 | XMS_ITS | Encounter Summary ---
Author Organization [facility] Medical Group Address [address] [facility] [address] [place] [address] Care Team Providers Care Facility Maintenance Worker Name Role Phone Francisco Long MD Primary Care Provider [phone] Neil Ag MD PhD Unavailable [phone] Ita estrada MD Unavailable Caron Mohan MD Unavailable Pebbles Felton MD Unavailable [phone] Encounter Details Date Type Department Care Team (Late st Contact Info) Description 01/26/2020 Orders Only 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 Gender Identity Not on file Sexual [...] on filedocumented in this encounter Care Teams Facility Maintenance Worker Relationship Specialty Start Date End Date Francisco Long MD PCP - General 02/23/17 05/15/22 Neil Ag MD PhD 6 [place] [address] Radiation Oncologist Radiation Oncology 12/17/18 [place] [address] [facility] 120 [place], [place] [address] Referring Physician General Surgery 12/17/18 [place] [address] [facility] 120 [place], [place] [address] Medical Oncologist/Operational Assistant Medical Oncology 12/17/18 [place] [address] [facility] 120 [place], [place] [address] Consulting Physician Gastroenterology 01/07/20 documented as of this encounter
--- OUTSIDE RECORDS SUMMARY | 2024-11-16 15:37 | XMS_ITS | Encounter Summary ---
Author Organization [facility] Healthcare Address [address] [place] [address] Care Team Providers Care Mobile Product Manager Name Role Phone Francisco Long MD Primary Care Provider [phone] Neil Ag MD PhD Unavailable [phone] Ita Vazquez MD Unavailable Caron Mohan MD Unavailable Pebbles Felton MD Unavailable [phone] Reason for Visit * Reason Comments OP Infusion * Episode Based Medications (Routine) - Closed Specialty Diagnoses / Procedures Referred By Contlaura t Referred To Contact Diagnoses Iron deficiency anemia due to chronic blood loss Francisco Long MD [address] [place] [address] [address] [place] [address] Phone: tel: fax: [facility] [address] [place] [address] [place] [address] Phone: tel: Referral ID Status Reason Start Date Expiration Date Visits Re quested Visits Authorized [id number] Closed 01/09/2020 07/20/2021 1 1 Encounter Details Date Type Department Care Team (Late st Contact Info) Description 01/15/2020 11:00 AM POLICE CHIEF DEPUTY Infusion [facility] [address] [facility] [address] [place] [address] Francisco Long MD [address] [place] [address] [address] [place] [address] Iron deficiency anemia due to chronic blood [...] on file 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 CE CHIEF DEPUTY documented in this encounter Plan of Treatment [...] blood loss New Bag 01/15/2020 11:23 AM POLICE CHIEF DEPUTY 300 mg 176.7 mL/hr documented in this encounter Orders Medications Ordered That Álvaro ht Not Have Been Administered Count Last Ordered Date First Ordered Date iron sucrose (VENOFER) 300 m g in sodium chloride 0.9% 250 mL IVPB 1 01/15/2020 Appointment Requests Count Last Ordered Date Fi rst Ordered Date INFUSION APPT REQUEST 240 MIN 1 01/15/2020 documented in this encounter Care Teams Mobile Product Manager Relationship Specialty Start Date End Date Francisco Long MD PCP - General 02/23/17 05/15/22 Neil Ag MD PhD 6 [place] [address] Radiation Oncologist Radiation Oncology 12/17/18 [place] [address] [facility] 120 [place], [place] [address] Referring Physician General Surgery 12/17/18 [place] [address] [facility] 120 [place], [place] [address] Medical Oncologist/Stitch Rubber Medical Oncology 12/17/18 [place] [address] [facility] 120 [place] [address] Consulting Physician Gastroenterology 01/07/20 documented as of this encounter
--- OUTSIDE RECORDS SUMMARY | 2024-11-16 15:37 | XMS_ITS | Encounter Summary ---
Author Organization [facility] Medical Group Address [address] [facility] [address] [place] [address] Care Team Providers Care Supervisor Stripping Name Role Phone Francisco Long MD Primary Care Provider [phone] Neil Ag MD PhD Unavailable [phone] Ita estrada MD Unavailable Caron Mohan MD Unavailable Pebbles Felton MD Unavailable [phone] Encounter Details Date Type Department Care Team (Late st Contact Info) Description 01/08/2020 Orders Only [place] [facility] 2 [facility] [address] [place] [address] Francisco Long MD [address] [place] [address] [address] [place] [address] Iron deficiency anemia secondary to [...] file 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 Gender Identity Not on file Sexual Orientation Not on file documented as of this encounter Plan of Treatment Not on file documented as of this encounter Visit Diagnoses Diagnosis 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 documented in this encounter Care Teams Supervisor Stripping Relationship Specialty Start Date End Date Francisco Long MD PCP - General 02/23/17 05/15/22 Neil Ag MD PhD 6 [place] [address] Radiation Oncologist Radiation Oncology 12/17/18 [place] [address] [facility] [address] [facility], [place] [address] Referring Physician General Surgery 12/17/18 [place] [address] [facility] [address] [employer], [place] [id number] Medical Oncologist/Golf Ball Inspector Medical Oncology 12/17/18 [place] [address] [facility] 120 [employer], [place] [address] Consulting Physician Gastroenterology 01/07/20 documented as of this encounter
--- OUTSIDE RECORDS SUMMARY | 2024-11-16 15:37 | XMS_ITS | Encounter Summary ---
Author Organization [facility] Medical Group Address [address] [facility] [address] [place] [address] Care Team Providers Care Crew Foreman Name Role Phone Francisco Long MD Primary Care Provider Neil Ag MD PhD Unavailable [phone] Ita Vazquez MD Unavailable Caron Mohan MD Unavailable Pebbles Felton MD Unavailable [phone] Encounter Details Date Type Department Care Team (Late st Contact Info) Description 01/15/2020 Telephone [place] [facility] 2 [facility] [address] [place] [address] Francisco Long MD [address] [place] [address] [address] [place] [address] Social History Tobacco Use Types [...] on file 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 Gender Identity Not on file Sexual Orientation Not on file documented as of this encounter Miscellaneous Notes * Telephone Encounter - Thalia Wolff CLT - 01/15/2020 9:08 AM CST noted RATING MACHINE TENDER * Telephone Encounter - Anita White MA - 01/15/2020 8:11 AM CST Sent to lab RATING MACHINE TENDER * Telephone Encounter - Francisco Long MD - 01/15/2020 8:07 AM CST Cancel RATING MACHINE TENDER * Telephone Encounter - Anita White MA - 01/15/2020 8:05 AM CST JR RATING MACHINE TENDER * Telephone Encounter - Thalia Wolff CLT - 01/15/2020 7:58 AM CST Lab no show 01-07-20 lmom; 01-09-20 letter sent; Next ov 01-29-20 Labs ordered were: cbc, a1c, b12 folate and spep. FYI: Pt was hospitalized; cbc b12 and folate were collected during hospital stay RATING MACHINE TENDER documented in this encounter Plan of Treatment Not on file documented as of this encounter Visit Diagnoses Not on filedocumented in this encounter Care Teams Crew Foreman Relationship Specialty Start Date End Date Francisco Long MD PCP - General 02/23/17 05/15/22 Neil Ag MD PhD 6 [place] [address] Radiation Oncologist Radiation Oncology 12/17/18 [place] [address] [facility] 120 [place], [place] [address] Referring Physician General Surgery 12/17/18 [place] [address] [address] Medical Oncologist/Physical Therapy Teacher Medical Oncology 12/17/18 [place] [address] [facility] 120 [place] [address] Consulting Physician Gastroenterology 01/07/20 documented as of this encounter
--- OUTSIDE RECORDS SUMMARY | 2024-11-16 15:37 | XMS_ITS | Encounter Summary ---
Author Organization [facility] Medical Group Address [address] [facility] [address] [place] [address] Care Team Providers Care Electronic Installer Name Role Phone Francsico Long MD Primary Care Provider [phone] Neil Ag MD PhD Unavailable [phone] Ita estrada MD Unavailable Caron Mohan MD Unavailable [phone] Pebbles Felton MD Unavailable [phone] Encounter Details Date Type Department Care Team (Late st Contact Info) Description 01/12/2020 Orders Only [place] [facility] 2 [facility] [address] [place] [address] Francisco Long MD [address] [place] [address] [address] [place] [address] Social History Tobacco Use Types [...] on file 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 Gender Identity Not on file Sexual Orientation Not on file documented as of this encounter Progress Notes * Francisco Long MD - 01/12/2020 11:59 PM CST Okay to leave a message hemoglobin up to 9.3 check hemoglobin 1 week VERY COLLECTOR documented in this encounter Plan of Treatment Not on file documented as of this encounter Procedures Procedure Name Priority Date/Time Associated Diagnosis Comments HEMOGLOBIN AND HEMATOCRIT Routine 01/12/2020 9:52 AM RECOVERY COLLECTOR documented in this encounter Results * (ABNORMAL) Hemoglobin and hematocrit (01/12/2020 9:52 AM RECOVERY COLLECTOR) Hgb 9.3(L) 11.7 - 15.5 g/dL [facility] Hct 32.2(L) 35.0 - 45.0 % [facility] 01/12/2020 9:52 AM RECOVERY COLLECTOR 01/12/2020 9:54 AM RECOVERY COLLECTOR Narrative Resulting Agency Comment Performing Organization Information: ?Site ID: [place] ?Name: [email or web address] ?Address: [address] [place] [address] ?Director: Alex Garcia D.O., MPH Francisco Long MD LAB BLOOD ORDERABLES Final Res ult LEX[facility] documented in this encounter Visit Diagnoses Not on filedocumented in this encounter Care Teams Electronic Installer Relationship Specialty Start Date End Date Francisco Long MD PCP - General 02/23/17 05/15/22 Neil Ag MD PhD 6 [place] [address] Radiation Oncologist Radiation Oncology 12/17/18 [place] [address] [facility] 120 [place] [id number] Referring Physician General Surgery 12/17/18 [place] [address] [address] [place] [id number] Medical Oncologist/Grounds Caretaker Medical Oncology 12/17/18 [place] [address] [facility] [address] [place] [id number] Consulting Physician Gastroenterology 01/07/20 documented as of this encounter
--- OUTSIDE RECORDS SUMMARY | 2024-11-16 15:37 | XMS_ITS | Encounter Summary ---
Author Organization [facility] Medical Group Address [address] [facility] [address] [place] [address] Care Team Providers Care Supervisor Meter Shop Name Role Phone Francisco Long MD Primary Care Provider Neil Ag MD PhD Unavailable [phone] Ita Vazquez MD Unavailable Caron Mohan MD Unavailable Pebbles Felton MD Unavailable [phone] Encounter Details Date Type Department Care Team (Late st Contact Info) Description 01/13/2020 Telephone [facility] 2 [facility] [address] [place] [address] Francisco Long MD [address] [place] [address] [address] [place] [address] Social History Tobacco Use Types [...] on file 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 Gender Identity Not on file Sexual Orientation Not on file documented as of this encounter Miscellaneous Notes * Telephone Encounter - Latoya Cotton MA - 01/13/2020 8:54 AM LABEL CODER Pt aware and already has another lab order for [facility] L CODER * Telephone Encounter - Latoya Cotton MA - 01/13/2020 8:53 AM LABEL CODER ----- Message from Francisco Long MD sent at 01/13/2020 7:00 AM LABEL CODER ----- Okay to leave a message hemoglobin up to 9.3 check hemoglobin 1 week L CODER documented in this encounter Plan of Treatment Not on file documented as of this encounter Visit Diagnoses Not on filedocumented in this encounter Care Teams Supervisor Meter Shop Relationship Specialty Start Date End Date Francisco Long MD PCP - General 02/23/17 05/15/22 Neil Ag MD PhD 6 [place] [address] Radiation Oncologist Radiation Oncology 12/17/18 [place] [address] [address] [place] [address] Referring Physician General Surgery 12/17/18 [place] [address] [address] [place] [id number] Medical Oncologist/Syrup Shed Supervisor Medical Oncology 12/17/18 [place] [address] [address] Consulting Physician Gastroenterology 01/07/20 documented as of this encounter
--- OUTSIDE RECORDS SUMMARY | 2024-11-16 15:37 | XMS_ITS | Encounter Summary ---
Author Organization [facility] Healthcare Address [address] [place] [address] Care Team Providers Care Electrician Helper Automotive Name Role Phone Francisco Long MD Primary Care Provider [phone] Neil Ag MD PhD Unavailable [phone] Ita Vazquez MD Unavailable Caron Mohan MD Unavailable Pebbles Felton MD Unavailable [phone] Reason for Visit * Reason Comments OP Infusion VENOFER * Episode Based Medications (Routine) - Closed Specialty Diagnoses / Procedures Referred By Contac t Referred To Contact Diagnoses Iron deficiency anemia due to chronic blood loss Francisco Long MD [address] [place] [address] [address] [place] [address] Phone: tel: fax: [facility] [address] [place] [address] [place] [address] Phone: tel: Referral ID Status Reason Start Date Expiration Date Visits Re quested Visits Authorized [id number] Closed 01/09/2020 07/20/2021 1 1 Encounter Details Date Type Department Care Team (Late st Contact Info) Description 01/22/2020 11:00 AM POTATO CHIP MAKER Infusion [facility] [address] [facility] [address] [place] [address] Francisco Long MD 2 [facility] [address] [place] [address] Iron deficiency anemia due to chronic blood [...] file Legal Sex Female 12:21 PM POTATO CHIP MAKER Gender Identity Not on file Sexual Orientation Not on file documented as of this encounter Last Filed Vital Signs Vital Sign Reading Time Taken Comments Blood Pressure 146/67 01/22/2020 10:56 AM POTATO CHIP MAKER Pulse 74 01/22/2020 10:56 AM POTATO CHIP MAKER Temperature 36.8 ??C (98.2 ??F) 01/22/2020 10:[address] Respiratory Rate - - Oxygen Saturation - - Inhaled Oxygen Concentration - - Weight - - Height - - Body Mass Index - - documented in this encounter Patient Instructions * Patient Instructions* Samanta Guzman, RN - 01/22/2020 11:00 AM POTATO CHIP MAKER Patient Education Iron Sucrose (By injection) Iron Sucrose (EYE-urn DENIS-krose) Treats anemia (lack of iron). Brand Name(s): PremierPro RX Venofer, Venofer There may be other brand names for this medicine. When This Medicine Should Not Be Used: This medicine is not right for everyone. You should not receive it if you had an allergic reaction to iron sucrose. How to Use This Medicine: Injectable ?? Your doctor will prescribe your dose and schedule. This medicine is given through a needle placed in a vein. ?? A nurse or other health provider will give you this medicine. Drugs and Foods to Avoid: Ask your doctor or pharmacist before using any other medicine, including zgnw-giy-uxdufsw medicines, vitamins, and herbal products. Warnings While Using This Medicine: ?? Tell your doctor if you are or , or if you have low blood pressure. ?? This medicine could lower your blood pressure too much and cause you to feel dizzy or lightheaded. Stand or sit up slowly if you are dizzy. ?? This medicine could raise your iron levels too high. Your doctor will do lab tests at regular visits to check on the effects of this medicine. Keep all appointments. Possible Side Effects While Using This Medicine: Call your doctor right away if you notice any of these side effects: ?? Allergic reaction: Itching or hives, swelling in your face or hands, swelling or tingling in your mouth or throat, chest tightness, trouble breathing ?? Chest pain ?? Lightheadedness, dizziness, or fainting If you notice these less serious side effects, talk with your doctor: ?? Diarrhea, nausea, vomiting ?? Headache ?? Muscle cramps ?? Pain in your back, arms, or legs ?? Pain, itching, burning, swelling, or a lump under your skin where the needle is placed If you notice other side effects that you think are caused by this medicine, tell your doctor. Call your doctor for medical advice about side effects. You may report side effects to FDA at 1-398-PCS-2345 ?? 2017 [employer] Information is for End User's use only and may not be sold, redistributed or otherwise used for commercial purposes. The above information is an dining room maid only. It is not intended as medical advice for individual conditions or treatments. Talk to your doctor, nurse or pharmacist before following any medical regimen to see if it is safe and effective for you. TO CHIP MAKER documented in this encounter Discharge Disposition Disposition Code Departure Means Destination Discharge to home or self care documented in this encounter Nursing Notes * Samanta Guzman RN - 01/22/2020 11:00 AM CST Pt. HERE FOR IRON INFUSION ORDERED BY Dr. LONG. IV SITE ESTABLISHED RIGHT ANTECUBITAL. IRON INFUSION TOLERATED WITHOUT ANY ADVERSE REACTION. IV SITE DC'ED AFTER INFUSION COMPLETED. REMINDED OF NEXT APPOINTMENT. TO CHIP MAKER documented in this encounter Plan of [...] Administer over 90 Minutes, Once, On Piedad 01/22/20 at 1115, For 1 doseIndications:Iron deficiency anemia due to chronic blood loss New Bag 01/22/2020 11:26 AM POTATO CHIP MAKER 300 mg 176.7 mL/hr documented in this encounter Orders Medications Ordered That Álvaro ht Not Have Been Administered Count Last Ordered Date First Ordered Date iron sucrose (VENOFER) 300 m g in sodium chloride 0.9% 250 mL IVPB 1 01/22/2020 Appointment Requests Count Last Ordered Date Fi rst Ordered Date INFUSION APPT REQUEST 240 MIN 1 01/22/2020 documented in this encounter Care Teams Electrician Helper Automotive Relationship Specialty Start Date End Date Francisco Long MD PCP - General 02/23/17 05/15/22 Neil Ag MD PhD 6 [place] [address] Radiation Oncologist Radiation Oncology 12/17/18 [place] [address] [address] [facility] [address] [place] [address] Referring Physician General Surgery 12/17/18 [place] [address] [address] [facility] [address] [place] [address] Medical Oncologist/Special Education Associate Medical Oncology 12/17/18 [place] [address] [address] Consulting Physician Gastroenterology 01/07/20 documented as of this encounter
--- OUTSIDE RECORDS SUMMARY | 2024-11-16 15:37 | XMS_ITS | Encounter Summary ---
Author Organization [facility] Medical Group Address [address] [facility] [address] [place] [address] Care Team Providers Care Cardiac Monitor Technician Name Role Phone Francisco Long MD Primary Care Provider Neil Ag MD PhD Unavailable [phone] Ita Vazquez MD Unavailable Caron Mohan MD Unavailable Pebbles Felton MD Unavailable [phone] Encounter Details Date Type Department Care Team (Late st Contact Info) Description 01/26/2020 Telephone [facility] 2 [facility] [address] [place] [address] Francisco Long MD [address] [place] [address] [address] [place] [address] Social History Tobacco Use [...] on file Legal Sex Female 12:21 PM BUFFER INFLATED PAD Gender Identity Not on file Sexual Orientation [...] she wantedto talk to her oncologist for ER INFLATED PAD * Telephone Encounter - Yuli Lopez - 01/26/2020 11:[address] Cadena, development specialist/oncologist wants to speak directly w/Dr Long re Jolene Cedillo. Message given to Stephanie as well. ER INFLATED PAD documented in this encounter Plan of Treatment Not on file documented as of this encounter Visit Diagnoses Not on filedocumented in this encounter Care Teams Cardiac Monitor Technician Relationship Specialty Start Date End Date Francisco Long MD PCP - General 02/23/17 05/15/22 Neil Ag MD PhD [address] [place] [address] Radiation Oncologist Radiation Oncology 12/17/18 [place] [address] [address] [place] [address] Referring Physician General Surgery 12/17/18 [place] [address] [address] [facility] [address] [place] [address] Medical Oncologist/Fat Purification Worker Medical Oncology 12/17/18 [place] [address] [facility] [address] [place] [id number] Consulting Physician Gastroenterology 01/07/20 documented as of this encounter
--- OUTSIDE RECORDS SUMMARY | 2024-11-16 15:37 | XMS_ITS | Encounter Summary ---
Author Organization [facility] Medical Group Address [address] [facility] [address] [place] [address] Care Team Providers Care Fence Manufacture Supervisor Name Role Phone Francisco Long MD Primary Care Provider [phone] Neil Ag MD PhD Unavailable [phone] Ita Vazquez MD Unavailable Caron Mohan MD Unavailable Pebbles Felton MD Unavailable [phone] Encounter Details Date Type Department Care Team (Late st Contact Info) Description 01/20/2020 Telephone [facility] 2 [facility] [address] [place] [address] Francisco Long MD [address] [place] [address] [address] [place] [address] Social History Tobacco Use Types [...] on file Legal Sex Female 12:21 PM INVENTORY TRANSCRIBER Gender Identity Not on file Sexual Orientation Not on file documented as of this encounter Miscellaneous Notes * Telephone Encounter - Marianne Badillo MA - 01/20/2020 10:39 AM CST Pt notified NTORY TRANSCRIBER * Telephone Encounter - Marianne Badillo MA - 01/20/2020 10:39 AM CST ----- Message from Francisco Long MD sent at 01/20/2020 6:51 AM INVENTORY TRANSCRIBER ----- Hemoglobin 9.3 recheck 2 weeks NTORY TRANSCRIBER documented in this encounter Plan of Treatment Not on file documented as of this encounter Visit Diagnoses Not on filedocumented in this encounter Care Teams Fence Manufacture Supervisor Relationship Specialty Start Date End Date Francisco Long MD PCP - General 02/23/17 05/15/22 Neil Ag MD PhD [address] [place] [id number] Radiation Oncologist Radiation Oncology 12/17/18 [place] [address] [address] [place] [address] Referring Physician General Surgery 12/17/18 [place] [address] [address] [place] [address] Medical Oncologist/Pony Cylinder Press Operator Medical Oncology 12/17/18 [place] [address] [address] Consulting Physician Gastroenterology 01/07/20 documented as of this encounter
--- OUTSIDE RECORDS SUMMARY | 2024-11-16 15:37 | XMS_ITS | Encounter Summary ---
Author Organization [facility] Medical Group Address [address] [facility] [address] [place] [address] Care Team Providers Care Performance Improvement Manager Name Role Phone Francisco Long MD Primary Care Provider [phone] Neil Ag MD PhD Unavailable [phone] Ita estrada MD Unavailable Caron Mohan MD Unavailable [phone] Pebbles Felton MD Unavailable [phone] Encounter Details Date Type Department Care Team (Late st Contact Info) Description 01/19/2020 Orders Only [facility] 2 [facility] [address] [place] [address] Francisco Long MD [address] [place] [address] [address] [place] [address] Social History Tobacco Use [...] on file Legal Sex Female 12:21 PM SHIPYARD PAINTER Gender Identity Not on file Sexual Orientation Not on file documented as of this encounter Miscellaneous Notes * Result Encounter Note - Francisco Long MD - 01/20/2020 6:51 AM CST Hemoglobin 9.3 recheck 2 weeks YARD PAINTER documented in this encounter Plan of Treatment Not on file documented as of this encounter Procedures Procedure Name Priority Date/Time Associated Diagnosis Comments HEMOGLOBIN Routine 01/19/2020 10:40 AM SHIPYARD PAINTER HEMATOCRIT Routine 01/19/2020 10:40 AM SHIPYARD PAINTER documented in this encounter Results * (ABNORMAL) Hemoglobin (01/19/2020 10:40 AM SHIPYARD PAINTER) Hgb 9.3(L) 11.7 - 15.5 g/dL JESIKA RAMON 01/19/2020 10:4 0 AM SHIPYARD PAINTER 01/19/2020 10:41 AM SHIPYARD PAINTER Narrative Resulting Agency Comment Performing Organization Information: ?Site ID: [id number] ?Name: [employer] ?Address: [address] [place], [place] [address]Y[place] [id number] ?Director: Alex Garcai D.O., MPH us Francisco Long MD LAB BLOOD ORDERABLES Final Res ult JESIKA [employer] YENNY [employer] YENNY * (ABNORMAL) Hematocrit (01/19/2020 10:40 AM SHIPYARD PAINTER) Hct 32.2(L) 35.0 - 45.0 % JESIKA VAUGHN [employer] YENNY 01/19/2020 10:4 0 AM SHIPYARD PAINTER 01/19/2020 10:41 AM SHIPYARD PAINTER Narrative Resulting Agency Comment Performing Organization Information: ?Site ID: [id number] ?Name: Jesika Matthew ?Address: [address] [address] [address] [id number] ?Director: Alex Garcia D.O., MPH us Francisco Long MD LAB BLOOD ORDERABLES Final Res ult JESIKA [facility] YENNY Mcgarry documented in this encounter Visit Diagnoses Not on filedocumented in this encounter Care Teams Performance Improvement Manager Relationship Specialty Start Date End Date Francisco Long MD PCP - General 02/23/17 05/15/22 Neil Ag MD PhD 6 [place] [address] Radiation Oncologist Radiation Oncology 12/17/18 [place] [address] [facility] [address] [email or web address], [place] [id number] Referring Physician General Surgery 12/17/18 [place] [address] [facility] [address] [email or web address], [place] [phone] Medical Oncologist/Store Assistant Medical Oncology 12/17/18 [place] [address] [facility] [address] [email or web address], [place] [phone] Consulting Physician Gastroenterology 01/07/20 documented as of this encounter
--- OUTSIDE RECORDS SUMMARY | 2024-11-16 15:37 | XMS_ITS | Encounter Summary ---
Author Organization [facility] Healthcare Address [address] [place] [address] Care Team Providers Care Manufacturing Maintenance Technician Name Role Phone Francisco Long MD Primary Care Provider [phone] Neil Ag MD PhD Unavailable Ita Vazquez MD Unavailable Caron Mohan MD Unavailable ePbbles Felton MD Unavailable [phone] Encounter Details Date Type Department Care Team (Late st Contact Info) Description 01/09/2020 Orders Only [facility] [address] [facility] [address] [place] [address] Francisco Long MD [address] [place] [address] [address] [place] [id number] Social History Tobacco Use Types Packs/Day Years [...] file Legal Sex Female 12:21 PM MEDICAL CLAIMS SPECIALIST Gender Identity Not on file Sexual Orientation Not on file documented as of this encounter Plan of Treatment Not on file documented as of this encounter Visit Diagnoses Not on filedocumented in this encounter Care Teams Manufacturing Maintenance Technician Relationship Specialty Start Date End Date Francisco Long MD PCP - General 02/23/17 05/15/22 Neil Ag MD PhD 6 [place] [address] Radiation Oncologist Radiation Oncology 12/17/18 [place] [address] [id number] Referring Physician General Surgery 12/17/18 [place] [address] [facility] [address] [place] [address] Medical Oncologist/Auto Fleet Maintenance Manager Medical Oncology 12/17/18 [place] [address] [facility] [address] [place] [address] Consulting Physician Gastroenterology 01/07/20 documented as of this encounter
--- OUTSIDE RECORDS SUMMARY | 2024-11-16 15:38 | XMS_ITS | Encounter Summary ---
Author Organization [facility] Medical Group Address [address] [facility] [address] [place] [address] Care Team Providers Care Tax Examining Technician Name Role Phone Francisco Long MD Primary Care Provider [phone] Neil Ag MD PhD Unavailable [phone] Ita Vazquez MD Unavailable Caron Mohan MD Unavailable Pebbles Felton MD Unavailable [phone] Reason for Visit * Reason Comments Hospital Follow Up Encounter Details Date Type Department Care Team (Latest Contact Info) Description 01/08/2020 1:15 PM HAND EMBROIDERER Office Visit [facility] [address] [facility] [address] [place] [address] Francisco Long MD [address] [place] [address] [address] [place], [place] [address] Gastrointestinal hemorrhage associated with acute gastritis (Primary [...] on file Legal Sex Female 12:21 PM HAND EMBROIDERER Gender Identity Not on file Sexual Orientation Not on file documented as of this encounter Last Filed Vital Signs Vital Sign Reading Time Taken Comments Blood Pressure 120/70 01/08/2020 1:14 PM HAND EMBROIDERER Pulse 60 01/08/2020 1:14 PM HAND EMBROIDERER Temperature - - Respiratory Rate 20 01/08/2020 1:14 PM HAND EMBROIDERER Oxygen Saturation - - Inhaled Oxygen Concentration - - Weight 85.3 kg (188 lb) 01/08/2020 1:14 PM HAND EMBROIDERER Height 170.2 cm (5' 7 ) 01/08/2020 1:14 PM HAND EMBROIDERER Body Mass Index 29.44 01/08/2020 1:14 PM HAND EMBROIDERER documented in this encounter Ordered Prescriptions Prescription [...] in agreement with the plan of care. EMBROIDERER documented in this encounter Plan of Treatment [...] documented as of this encounter Care Teams Tax Examining Technician Relationship Specialty Start Date End Date Francisco Long MD PCP - General 02/23/17 05/15/22 Neil Ag MD PhD 6 [place] [address] Radiation Oncologist Radiation Oncology 12/17/18 [place] [address] [facility] [address] [place], [place] [id number] Referring Physician General Surgery 12/17/18 [place] [address] [facility] [address] [place], [place] [id number] Medical Oncologist/Roof Painter Medical Oncology 12/17/18 [place] [address] [facility] [address] [place] [address] Consulting Physician Gastroenterology 01/07/20 documented as of this encounter
--- OUTSIDE RECORDS SUMMARY | 2024-11-16 15:38 | XMS_ITS | Encounter Summary ---
Author Organization [facility] Medical Group Address [address] [facility] [address] [place] [address] Care Team Providers Care Garbage Truck Dispatcher Name Role Phone Francisco Long MD Primary Care Provider [phone] Neil Ag MD PhD Unavailable [phone] Ita estrada MD Unavailable Caron Mohan MD Unavailable [phone] Pebbles Felton MD Unavailable [phone] Encounter Details Date Type Department Care Team (Late st Contact Info) Description 01/07/2020 Telephone [facility] 2 [facility] [address] [place] [address] Winter Martinez MA Social History [...] on file Legal Sex Female 12:21 PM STRIPER MACHINE Gender Identity Not on file Sexual Orientation Not on file documented as of this encounter Miscellaneous Notes * Telephone Encounter - Francisco Long MD - 01/07/2020 10:43 AM CST Noted patient is in the hospital I am aware PER MACHINE * Telephone Encounter - Winter Martinez MA - 01/07/2020 8:44 AM CST JR fyi patient cancelled lab appt today d/t being admitted @ [facility]. Refused to r/s at this time PER MACHINE PER MACHINE documented in this encounter Plan of Treatment Not on file documented as of this encounter Visit Diagnoses Not on filedocumented in this encounter Care Teams Garbage Truck Dispatcher Relationship Specialty Start Date End Date Francisco Long MD PCP - General 02/23/17 05/15/22 Neil Ag MD PhD 6 [place] [address] Radiation Oncologist Radiation Oncology 12/17/18 [place] [address] [place] [facility] [place] [address] Referring Physician General Surgery 12/17/18 [place] [address] [place], [place] [id number] Medical Oncologist/Railroad Track Inspector Medical Oncology 12/17/18 [place] [address] [address] [facility] [address] [place] [address] Consulting Physician Gastroenterology 01/07/20 documented as of this encounter
--- OUTSIDE RECORDS SUMMARY | 2024-11-16 15:38 | XMS_ITS | Encounter Summary ---
Author Organization [facility] Medical Group Address [address] [facility] [address] [place] [address] Care Team Providers Care P D Driver Name Role Phone Francisco Long MD Primary Care Provider Neil Ag MD PhD Unavailable [phone] Ita Vazquez MD Unavailable Caron Mohan MD Unavailable Pebbles Felton MD Unavailable [phone] Encounter Details Date Type Department Care Team (Late st Contact Info) Description 01/07/2020 Telephone [facility] 2 [facility] [address] [place] [address] Francisco Long MD [address] [place] [address] [address] [place] [address] Social History Tobacco Use Types [...] on file Legal Sex Female 12:21 PM LANDFILL GAS COLLECTION SYSTEM OPERATOR Gender Identity Not on file Sexual Orientation Not on file documented as of this encounter Miscellaneous Notes * Telephone Encounter - Latoya Cotton MA - 01/07/2020 3:52 PM LANDFILL GAS COLLECTION SYSTEM OPERATOR Pt aware and seeing JR tomorrow FILL GAS COLLECTION SYSTEM OPERATOR * Telephone Encounter - Francisco Long MD - 01/07/2020 3:43 PM CST I am quite aware of her hospital stay have the patient see me tomorrow for follow-up blood work FILL GAS COLLECTION SYSTEM OPERATOR * Telephone Encounter - Josi Umaña MA - 01/07/2020 3:29 PM CST jr FILL GAS COLLECTION SYSTEM OPERATOR * Telephone Encounter - Katie Apple - 01/07/2020 3:27 PM CST Pt states she was admitted to [facility] 01/05. She had an endoscopy and colonoscopy today before she was discharged. She would like JR to call her so she can fill him on her hospital stay. Please call [phone] FILL GAS COLLECTION SYSTEM OPERATOR documented in this encounter Plan of Treatment Not on file documented as of this encounter Visit Diagnoses Not on filedocumented in this encounter Care Teams P D Driver Relationship Specialty Start Date End Date Francisco Long MD PCP - General 02/23/17 05/15/22 Neil Ag MD PhD [address] [place] [address] Radiation Oncologist Radiation Oncology 12/17/18 [place] [address] [facility] [address] [place] [id number] Referring Physician General Surgery 12/17/18 [place] [address] [facility] [address] [place] [phone] Medical Oncologist/Human Relations Manager Medical Oncology 12/17/18 [place] [address] [facility] [address] [place] [address] Consulting Physician Gastroenterology 01/07/20 documented as of this encounter
--- OUTSIDE RECORDS SUMMARY | 2024-11-16 15:38 | XMS_ITS | Encounter Summary ---
Author Organization [facility] Healthcare Address [address] [place] [address] Care Team Providers Care Area Captain Name Role Phone Inez Long MD Primary Care Provider Neil Ag MD PhD Unavailable Ita Vazquez MD Unavailable Caron Mohan MD Unavailable Pebbles Felton MD Unavailable [phone] Reason for Visit * Reason Comments Shortness of Breath Encounter Details Date Type Department Care Team (Late st Contact Info) Description 01/07/2020 4:05 PM JOINT CREASER - 01/07/2020 5:00 PM JOINT CREASER Surgery [facility] Digestive [facility] [address] [place] [address] Pebbles Felton MD [address] [place] [id number] COLON REMOVAL SNARE Surgery Details Date/Time Status [...] file Legal Sex Female 12:21 PM JOINT CREASER Gender Identity Not on file Sexual Orientation Not on file documented as of this encounter Last Filed Vital Signs Vital Sign Reading Time Taken Comments Blood Pressure 152/71 01/07/2020 11:13 AM JOINT CREASER Pulse 71 01/07/2020 11:13 AM JOINT CREASER Temperature 36.8 ??C (98.2 ??F) 01/07/2020 11:[address] Respiratory Rate 18 01/07/2020 11:13 AM JOINT CREASER Oxygen Saturation 96% 01/07/2020 11:13 AM JOINT CREASER Inhaled Oxygen Concentration - - Weight 86 kg (189 lb 9.5 oz) 01/05/2020 6:10 PM JOINT CREASER Height 170.2 cm (5' 7.01 ) 01/06/2020 4:38 AM CS T Body Mass Index 29.69 01/05/2020 6:10 PM JOINT CREASER documented in this encounter Discharge Summaries * Sudarshan Jones Jr., MD - 01/07/2020 12:25 PM CST [place], [place] Hospitalist Discharge Summary Patient Name: Jolene Gordon Patient : 1945 Room/Bed: [facility]/[id number] Admission Date/Time: 01/05/2020 1:34 PM Discharge date: [...] she can get in touch with her marketing consultant because Protonix can increase serum levels of [...] Range Crossmatch Compatible Unit number for crossmatch [id number] Crossmatch Compatible Unit number for crossmatch [id number] Prepare RBC Collection Time: 01/05/20 6:43 PM Result Value Ref Range Unit Number [id number] Product code [id number] Blood Expiration Date [id number] Product Blood Type (for scanning) 5100 Product [...] requested 1 Units requested Ready Unit Number [id number] Product code [id number] Blood Expiration Date [id number] Product Blood Type (for scanning) 7300 Product [...] months. TECHNIQUE: Frontal and lateral radiographs of [facility]. COMPARISON: Chest x-ray 12/02/2019 FINDINGS: LUNGS/PLEURA: There [...] EXTREMITY BILATERAL COMPLETE ORDERING HEALTHCARE PROVIDER: INEZ LNOG HISTORY: Other pulmonary embolism without acute cor [...] Your Medications These medications were sent to [facility] #[id number] - [place] [address] AT [place] [address], [facility] [id number] ?? pantoprazole DR 40 mg EC tablet Patient Instructions: Activity: activity as tolerated Diet: regular diet Disposition: home Follow-up Contact Information for Follow-ups Pebbles Felton MD Specialty: Gastroenterology, Internal Medicine Relationship: Consulting Physician [address] [facility] [address] Next Steps: Follow up Instructions: Please call [...] MD Specialty: Internal Medicine Relationship: PCP - [facility] Attributed PCP [address] [facility] [place] [address] Next Steps: Follow up Instructions: Please call [...] Jones Jr., MD Internal Medicine - Hospitalist [facility] - Adult Hospitalist Service 01/07/2020 12:25 PM Cc: Inez Long MD T CREASER documented in this encounter Discharge Instructions * Discharge Instructions* Mary Aparicio RN - 01/07/2020 1:30 PM JOINT CREASER Anemia WHAT YOU NEED TO KNOW: Anemia [...] ask them during your visits. ?? 2017 [email or web address] Information is for End User's use only and may not be sold, redistributed or otherwise used for commercial purposes. All illustrations and images included in CareNotes?? are the copyrighted property of [employer] or [employer]. The above information is an medicaid eligibility specialist only. It is not intended as medical advice for individual conditions or treatments. Talk to your doctor, nurse or pharmacist before following any medical regimen to see if it is safe and effective for you. T CREASER documented in this encounter Medications at Time [...] of suspected active GI bleed, SCDs ordered T CREASER * Carol Chan RN - 01/06/2020 2:02 [...] (na) Dialysis No Behavioral Health Services No T CREASER * Pebbles Felton MD - 01/06/2020 9:57 [...] Range Crossmatch Compatible Unit number for crossmatch [id number] Prepare RBC Collection Time: 01/05/20 6:43 PM Result Value Ref Range Unit Number [id number] Product code [id number] Blood Expiration Date [id number] Product Blood Type (for scanning) 5100 Product [...] Can stop intravenous fluids. Pebbles Felton MD T CREASER * Melisa Boss, RD - 01/06/2020 4:39 [...] status Evidenced by: Physical finding ?? Interventions: [place] diet preferences within the limits of nutrition [...] Nutrition Follow-Up : 01/09/[address],LDN T CREASER documented in this encounter H&P Notes * [...] Range Crossmatch Compatible Unit number for crossmatch [id number] Prepare RBC Collection Time: 01/05/20 6:43 PM Result Value Ref Range Unit Number [id number] Product code [id number] Blood Expiration Date [id number] Product Blood Type (for scanning) 5100 Product [...] months. TECHNIQUE: [facility]ISON: Chest x-ray 12/02/2019 FINDINGS: LUNGS/PLEURA: [...] Making Complexity: Moderate Time spent 52 minutes T CREASER documented in this encounter Procedure Notes * [...] under direct vision. The Pediatric Colonoscope PCF-H190L [id number] was introduced through the anus and advanced [...] 9:12 AM Procedure Code(s): --- Professional --- 57640, Colonoscopy, flexible; with removal of tumor(s), polyp(s), or other lesion(s) by snare technique 27659, 59, Colonoscopy, flexible; with biopsy, single or multiple Diagnosis Code(s): --- Professional --- K64.8, Other hemorrhoids D12.0, Benign neoplasm of cecum D12.4, Benign neoplasm of descending colon R19.5, Other fecal abnormalities D50.9, Iron deficiency anemia, unspecified K57.30, Diverticulosis of large intestine without perforation or abscess without bleeding CPT copyright 2017 [employer]. All rights reserved. The codes documented in this report are preliminary and upon medical record coder review may be revised to meet current compliance requirements. Recognized by the [place] [employer] for promoting quality in endoscopy T CREASER * Pebbles Felton MD - 01/07/2020 9:11 AM CSTAssociated Order(s): EGD Digestive [facility] Patient Name: Jolene Gordon Procedure Date: [...] passed under direct vision. The Endoscope GIF-H190 [id number] was introduced through the mouth, and advanced [...] 9:11 AM Procedure Code(s): --- Professional --- 20570, Esophagogastroduodenoscopy, flexible, transoral; with biopsy, single or multiple Diagnosis Code(s): --- Professional --- K29.70, Gastritis, unspecified, without bleeding K44.9, Diaphragmatic hernia without obstruction or gangrene D50.9, Iron deficiency anemia, unspecified R19.5, Other fecal abnormalities CPT copyright 2017 [employer]. All rights reserved. The codes documented in this report are preliminary and upon medical record coder review may be revised to meet current compliance requirements. Recognized by the [place] [employer] for promoting quality in endoscopy T CREASER documented in this encounter Consult Notes * [...] evaluation. 6. Follow-up progress. Pebbles Felton MD T CREASER documented in this encounter Nursing Notes * Lupe Cristina RN - 01/07/2020 2:29 PM CST Discharge instructions discussed. Verbalizes understanding of all instructions as written. Transported to [facility] in stable condition with all personal belongings. Discharged home to self carewith at side for transport. T CREASER documented in this encounter ED Notes * [...] review shows that patient was [facility] for bilateral pulmonary embolism. [...] Inez Long MD. History provided by: Patient translator interpreter used: No Patient History Patient Active Problem [...] mammogram, encounter for 1945 ??? Uterine cancer ([facility]) 04/2018 Past Surgical History: Procedure [...] time. Psychiatric: Mood and Affect: Mood normal. [facility] ECG 12 lead Date/Time: 01/05/2020 1:48 [...] CROSSMATCH Crossmatch Compatible Unit number for crossmatch [id number] CBC WITH AUTO DIFFERENTIAL PREPARE RBC Units requested 1 Units requested Ready Narrative: Are special requirements needed? (all products are leukoreduced)->No PREPARE RBC Unit Number [id number] Product code [id number] Blood Expiration Date Product Blood Type (for [...] GI consult. Discussed with: Admitting physician and Manager Lsw They agree with : Admission ED Course as of Jan 05 2026 Time: 01/05 1416 Comment: Discussed patient's case with Dr. Felton, GI, who agreed to consult. By: Miriam Ivy Time: 01/05 1437 Comment: Discussed patient's case with Dr. Spear , Hospitalist, who accepted patient for obseravtion admission. By: Mriiam Ivy Final diagnoses: Iron deficiency anemia due [...] words and actions. Ana Stubbs MD 01/05/202026 T CREASER * Starr Enriquez, RN - 01/05/2020 12:03 PM CST Pt to the ED with complaints of SOB and fatigue, states she had blood clots in both lungs recently.Pt able to speak complete sentences with no difficulty. T CREASER documented in this encounter Miscellaneous Notes * [...] in room. Tolerated EGD/Colonoscopy well. Discharge pending. T CREASER * Perioperative Nursing Note - Anita Badillo RN - 01/07/2020 10:[address] Felton spoke with Patient and regarding today's procedure. He recommends following upin 3 years for another colon screening and to follow up with Dr Long for regular labs to monitor hemoglobin levels. T CREASER * Plan of Care - Marianne Masterson [...] Goal: Pain level will decrease Outcome: Progressing T CREASER * Plan of Leyda - Doris Monroy [...] or discomfort. Tolerating clear liquids without nausea T CREASER * Assessment & Plan Note - Neeru Gonzalez MD - 01/06/2020 5:45 AM CSTAssociated Problem(s): Malignant neoplasm of upper-inner quadrant of left breast in female, estrogen receptor positive (HCC) Hold letrozole for now as it increases risk for thromboembolism. T CREASER * Assessment & Plan Note - Neeru [...] to monitor. Will hold anticoagulation for now. T CREASER T CREASER * Assessment & Plan Note - Neeru Gonzalez MD - 01/06/2020 5:42 AM CSTAssociated Problem(s): 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 rheumatoid factor (CMS/HCC) (HCC) Patient is on methotrexate which she takes on Sunday. T CREASER * Assessment & Plan Note - Neeru Gonzalez MD - 01/06/2020 5:42 AM CSTAssociated Problem(s): Essential hypertension Currently normotensive. Continue carvedilol with hold parameters. Holding losartan and hydrochlorothiazide for now. T CREASER * Plan of Care - Marianne Masterson [...] stable neurologic state will improve Outcome: Progressing T CREASER * Plan of Leyda - Smith Guzman [...] activity as tolerated. Summary: Care plan initiated T CREASER documented in this encounter Plan of Treatment Not on file documented as of this encounter Procedures Procedure Name Priority Date/Time Associated Diagnosis Comments SURGICAL PATHOLOGY STAT 01/07/2020 11:54 AM JOINT CREASER Iron deficiency anemia due to chronic blood loss Gastrointestina l hemorrhage associated with anorectal source H. PYLORI UREASE SCREEN (RADHA TEST) STAT 01/07/2020 9:40 AM JOINT CREASER ENDO ADD ON COLON BIOPSY 020 9:19 AM JOINT CREASER Iron deficiency anemia due to chronic blood loss Gastrointestina l hemorrhage associated with anorectal source ESOPHAGOGASTRODUODENOSCOPY BIOPSY 01/07/2020 9:19 AM JOINT CREASER Iron deficiency anemia due to chronic blood loss Gastrointestina l hemorrhage associated with anorectal source COLON REMOVAL SNARE 01/07/2020 9:19 AM JOINT CREASER Iron deficiency anemia due to chronic blood loss Gastrointestina l hemorrhage associated with anorectal source COLONOSCOPY 01/07/2020 9:12 AM JOINT CREASER EGD 01/07/2020 9:11 AM JOINT CREASER POCT GLUCOSE DEVICE Routine 01/07/2020 7:03 AM JOINT CREASER EGFR Routine 01/07/2020 3:25 AM JOINT CREASER CBC WITHOUT DIFFERENTIAL Routine 020 3:25 AM JOINT CREASER PHOSPHORUS Routine 01/07/2020 3:25 AM JOINT CREASER MAGNESIUM Routine 01/07/2020 3:25 AM JOINT CREASER LACTATE DEHYDROGENASE Routine 01/07/2020 3:25 AM JOINT CREASER BASIC METABOLIC PANEL Routine 01/07/2020 3:25 AM JOINT CREASER TRANSFUSE RED BLOOD CELLS Timed 2019 5:14 PM JOINT CREASER PREPARE RBC Timed 01/06/2020 4:16 PM JOINT CREASER DIFFERENTIAL AUTO Routine 01/06/2020 4:32 AM JOINT CREASER CBC WITH AUTO DIFFERENTIAL Routine 01/06 4:32 AM JOINT CREASER PREPARE RBC Timed 01/05/2020 7:00 PM JOINT CREASER TRANSFUSE RED BLOOD CELLS Timed 2019 6:57 PM JOINT CREASER PREPARE RBC Routine 01/05/2020 6:43 PM JOINT CREASER ABO/RH STAT 01/05/2020 4:00 PM JOINT CREASER CROSSMATCH STAT 01/05/2020 4:00 PM JOINT CREASER ANTIBODY SCREEN STAT 01/05/2020 4:00 PM JOINT CREASER TYPE AND SCREEN STAT 01/05/2020 4:00 PM JOINT CREASER POC GUAIAC OCCULT BLOOD, FEC AL, NOT FOR NEOPLASM SCREENING Routine 01/05/2020 2:17 PM JOINT CREASER ECG 12-LEAD STAT 01/05/2020 1:48 PM JOINT CREASER APTT STAT 01/05/2020 12:42 PM JOINT CREASER PROTIME-INR STAT 01/05/2020 12:42 PM JOINT CREASER D-DIMER, QUANTITATIVE STAT 01/05/2020 12:42 PM JOINT CREASER EGFR STAT 01/05/2020 12:41 PM JOINT CREASER DIFFERENTIAL AUTO STAT 01/05/2020 12:41 PM JOINT CREASER B ABO / RH CONFIRMATION TESTING STAT 01/05/2020 12:41 PM JOINT CREASER PRO B-TYPE NATRIURETIC PEPTIDE STAT 0 01/05/2020 12:41 PM JOINT CREASER THYROID FUNCTION CASCADE Add-On 020 12:41 PM JOINT CREASER IRON PROFILE W/ IBC STAT 01/05/2020 12:41 PM JOINT CREASER CBC WITH AUTO DIFFERENTIAL STAT 01/05 12:41 PM JOINT CREASER TROPONIN T STAT 01/05/2020 12:41 PM JOINT CREASER FOLATE Routine 01/05/2020 12:41 PM JOINT CREASER VITAMIN B12 Routine 01/05/2020 12:41 PM JOINT CREASER COMPREHENSIVE METABOLIC PANEL STAT 12:41 PM JOINT CREASER XR CHEST PA LATERAL 2 VIEWS ED 12/27 12:23 PM JOINT CREASER documented in this encounter Results * Surgical pathology (01/07/2020 11:54 AM JOINT CREASER) Tissue (Polyp(s), colon/colorectal, esophageal, gastric) 01/07/2020 9:58 AM JOINT CREASER Tissue (Polyp(s), colon/colorectal, esophageal, gastric) 01/07/2020 9:58 AM JOINT CREASER Narrative PATHOLOGY [facility] - 01/08/2020 10:09 AM JOINT CREASER [facility] results best viewed via link to PDF [facility] Department of Pathology [address] [place] [address] Final Report Patient Name: ??JOLENE GORDON Destiny Address: ??[address] [place] [address], ??[place], [place] ??[address] Gender: ??F : ??1945 (Age: 74) Service: ??Medical Location: ??[facility] Hospital #: ??[id number] Patient Type: [facility] IP Accession # ?[id number] Taken: ??01/07/2020 Received: ??01/07/2020 Accessioned: ??01/07/2020 Reported: [...] determined by the Surgical Pathology Department at [facility] as part of an ongoing fuel quality tech program and in compliance with federally mandated [...] characteristics determined by the Surgical Pathology Department [facility]. ??It has not been cleared or approved by the U. S. Food and Drug Administration. Pebbles Felton MD LAB PATHOLOGY ORDERABLES F inal Result PATHOLOGY [facility] [address] [place] [address] * H. pylori urease screen (RADHA test) Tissue (01/07/2020 9:40 AM JOINT CREASER) H. pylori, rapid (RADHA) Negative Negative [facility] Tissue 01/07/2020 9:40 AM JOINT CREASER 01/07/2020 12:00 PM JOINT CREASER Pebbles eFlton MD LAB MICROBIOLOGY - GENERAL ORDERABLES Final Result Performing Organization Address [facility] Co de Phone Number CERNER [facility] 1 [facility] Department [place] [address] * COLONOSCOPY (01/07/2020 9:12 AM JOINT CREASER) Anatomical Region Laterality Modality Other Narrative Procedure Note Pebbles Felton MD - 01/07/2020 9:12 AM CST [facility] Patient Name: Jolene Gordon Procedure Date: 01/07/2020 [...] passed under direct vision.The Pediatric Colonoscope PCF-H190L [id number] was introduced through the anus and advanced [...] 9:12 AM Procedure Code(s): --- Professional --- 50932, Colonoscopy, flexible; with removal of tumor(s), polyp(s), or other lesion(s) by snare technique 94749, 59, Colonoscopy, flexible; with biopsy, single or multiple Diagnosis Code(s): --- Professional --- K64.8, Other hemorrhoids D12.0, Benign neoplasm of cecum D12.4, Benign neoplasm of descending colon R19.5, Other fecal abnormalities D50.9, Iron deficiency anemia, unspecified K57.30, Diverticulosis of large intestine without perforation orabscess without bleeding CPT copyright 2017 [employer]. All rights reserved. The codes documented in this report are preliminary and upon medical record coder reviewmay be revised to meet current compliance requirements. Recognized by the [place] for promoting quality in endoscopy us Pebbles Felton MD ENDOSCOPY PROCEDURES Final Result * EGD (01/07/2020 9:11 AM JOINT CREASER) Anatomical Region Laterality Modality Other Narrative Procedure Note Pebbles Felton MD - 01/07/2020 9:11 AM CST [facility] Patient Name: Jolene Gordon Procedure Date: [...] was passed under direct vision.The Endoscope GIF-H190 [id number] was introduced throughthe mouth, and advanced to [...] 9:11 AM Procedure Code(s): --- Professional --- 05593, Esophagogastroduodenoscopy, flexible, transoral; with biopsy, single or multiple Diagnosis Code(s): --- Professional --- K29.70, Gastritis, unspecified, without bleeding K44.9, Diaphragmatic hernia without obstruction or gangrene D50.9, Iron deficiency anemia, unspecified R19.5, Other fecal abnormalities CPT copyright 2017 [employer]. All rights reserved. The codes documented in this report are preliminary and upon medical record coder reviewmay be revised to meet current compliance requirements. Recognized by the [place] [employer] for promoting quality in endoscopy Pebbles Felton MD ENDOSCOPY PROCEDURES Final Result * (ABNORMAL) POCT glucose (01/07/2020 7:03 AM JOINT CREASER) Pathologist [facility] Glucose, POC 143(H) 71 - 98 mg/dL [facility] ([place]) Blood specimen (specimen) 01/07/2020 7:03 AM JOINT CREASER 01/07/2020 7:03 AM JOINT CREASER Sudarshan Jones Jr., MD LAB POCT ORDERABLES - DEVICE Final Result [facility] ([place]) 1 [facility] Department [place] [address] * eGFR (01/07/2020 3:25 AM JOINT CREASER) Pathologist [facility] eGFR 89 mL/min/1.7 3 m2 [facility] ([place]) Comment: Interpretive Data Reference Interval Normal ?>/= 90 mL/min/1.73m2 Mildly decreased* ? 60 - 89 mL/min/1.73m2 Mildly to moderately decreased ?45 - 59 mL/min/1.73m2 Moderately to severely decreased ??30 - 44 mL/min/1.73m2 Severely decreased ?15 - 29 mL/min/1.73m2 Kidney Failure ?< 15 ??mL/min/1.73m2 *Relative to young adult level If -[place] multiply value by 1.16. Estimated glomerular filtration [...] 2016. Blood specimen (specimen) 01/07/2020 3:25 AM JOINT CREASER 01/07/2020 4:14 AM JOINT CREASER us Sudarshan Jones Jr., MD LAB BLOOD ORDERABLE S Final Result [facility] 1 [facility] Department [place] [address] * Phosphorus (01/07/2020 3:25 AM JOINT CREASER) Pathologist [facility] Phosphorus, pl 4.4 2.3 - 4.5 mg/dL [facility] ([place]) Blood specimen (specimen) 01/07/2020 3:25 AM JOINT CREASER 01/07/2020 4:14 AM JOINT CREASER us Pebbles Felton MD LAB BLOOD ORDERABLES Final Result [facility] ([place]) 1 [facility] [place] [address] * Magnesium (01/07/2020 3:25 AM JOINT CREASER) Pathologist [facility] Magnesium 2.0 1.4 - 2.5 mg/dL [facility] Blood specimen (specimen) 01/07/2020 3:25 AM JOINT CREASER 01/07/2020 4:14 AM JOINT CREASER Pebbles Felton MD LAB BLOOD ORDERABLES Final Result Performing Organization Address City/[facility] Co de Phone Number [facility] ([place]) 1 [place] [address] * Basic metabolic panel (01/07/2020 3:25 AM JOINT CREASER) Sodium 142 135 - 145 mmol/L [facility] ([place]) Potassium, pl 3.4 3.3 - 4.9 mmol/L [facility] ([place]) Chloride 105 97 - 110 mmol/L [facility] ([place]) CO2 24 22 - 32 mmol/L [facility] ([place] Anion gap 13 2 - 15 mmol/L [facility] ([place]) BUN 8 8 - 25 mg/dL [facility] ([place]) Creatinine 0.63 0.60 - 1.10 mg/dL [facility] ([place]) Glucose 108 70 - 199 mg/dL [facility] ([place]) Comment: Interpretive Data Fasting glucose >/= [...] ([place]) Blood specimen (specimen) 01/07/2020 3:25 AM JOINT CREASER 01/07/2020 4:14 AM JOINT CREASER us Pebbles Felton MD LAB BLOOD ORDERABLES Final Result [facility] ([place]) 1 [facility] Department [place] [address] * (ABNORMAL) CBC without differential (01/07/2020 3:25 AM JOINT CREASER) WBC 6.6 3.8 - 9.9 K/cumm [facility] [...] ([place]) Blood specimen (specimen) 01/07/2020 3:25 AM JOINT CREASER 01/07/2020 4:14 AM JOINT CREASER us Pebbles Felton MD LAB BLOOD ORDERABLES Final Result [facility] ([place]) 1 [facility] [place] [address] * Lactate dehydrogenase (LD) (01/07/2020 3:25 AM JOINT CREASER) Lactate dehydrogenase (LDH) 167 100 - 250 Units/L [facility] ([place]) Blood specimen (specimen) 01/07/2020 3:25 AM JOINT CREASER 01/07/2020 4:14 AM JOINT CREASER us Pebbles Felton MD LAB BLOOD ORDERABLES Final Result [facility] ([place]) 1 [facility] [place] [address] * Transfuse RBC (01/06/2020 8:05 PM JOINT CREASER) Blood specimen (specimen) us Sudarshan Jones Jr., MD BLOOD TRANSFUSION O RDERABLES Final Result [facility] ([place]) 1 [facility] [place] [address] * Transfuse RBC: 1 Units (01/06/2020 8:05 PM JOINT CREASER) Blood specimen (specimen) us Sudarshan Jones Jr., MD BLOOD TRANSFUSION O RDERABLES Final Result * Prepare RBC: 1 Units (01/06/2020 4:16 PM JOINT CREASER) Units requested 1 [facility] ([place]) Units requested Ready [facility] ([place]) Unit Number [id number] [facility]) Product code [id number] [facility] ([place]) Blood Expiration Date [id number] [facility] ([place]) Product Blood Type (for scanning) 7300 [facility] ([place]) Product Blood Type BPOS [facility] ([place]) Dispense Status DISPENSED [facility] ([place]) Blood specimen (specimen) 01/06/2020 4:16 PM JOINT CREASER 01/06/2020 4:16 PM JOINT CREASER Sudarshan Jones Jr., MD BLOOD BANK PRODUCT ORDERABLES Final Result [facility] ([place]) 1 [facility] Department [place] [address] * (ABNORMAL) Differential, auto (01/06/2020 4:32 AM JOINT CREASER) Neutrophil abs 4.4 1.7 - 6.5 K/cumm [...] 2018. Blood specimen (specimen) 01/06/2020 4:32 AM JOINT CREASER 01/06/2020 4:37 AM JOINT CREASER us Ana Stubbs MD LAB BLOOD ORDERABLES Final R esult [facility] ([place]) 1 [facility] Department [place] [address] * (ABNORMAL) CBC with auto differential (01/06/2020 4:32 AM JOINT CREASER) WBC 5.7 3.8 - 9.9 K/cumm CERNER [...] ([place]) Blood specimen (specimen) 01/06/2020 4:32 AM JOINT CREASER 01/06/2020 4:37 AM JOINT CREASER us Ana Stubbs MD LAB BLOOD ORDERABLES Final R esult ME[facility]AN THOMAS ([place]) [address] [place] [address] [place] [address] * Transfuse RBC (01/05/2020 10:23 PM JOINT CREASER) Blood specimen (specimen) Pebbles Felton MD BLOOD TRANSFUSION ORDERABL ES Final Result Performing Organization Address [facility]/ZIP Co de Phone Number MEHRAN THOM[facility] ([place]) [address] [place] [address] [place] [address] * Transfuse RBC: 1 Units (01/05/2020 10:23 PM JOINT CREASER) Blood specimen (specimen) Pebbles Felton MD BLOOD TRANSFUSION ORDERABL ES Final Result * Prepare RBC: 1 Units (01/05/2020 7:00 PM JOINT CREASER) Units requested 1 [facility] ([place]) Units requested Ready [facility] ([place]) Blood specimen (specimen) 01/05/2020 7:00 PM JOINT CREASER 01/05/2020 7:00 PM JOINT CREASER Narrative [facility] ([place]) - 01/05/2020 7:00 PM JOINT CREASER Are special requirements needed? (all products are leukoreduced)->No Pebbles Felton MD BLOOD BANK PRODUCT ORDERAB LES Final Result [facility] ([place]) 1 [facility] [place] [address] * Prepare RBC (01/05/2020 6:43 PM JOINT CREASER) Unit Number [id number] [facility] ([place]) Product code [id number] [facility] ([place]) Blood Expiration Date [facility] ([place]) Product Blood Type (for scanning) 5100 [facility] ([place]) Product Blood Type OPOS [facility] ([place]) Dispense Status DISPENSED [facility] ([place]) us Pebbles Felton MD BLOOD BANK PRODUCT ORDERAB LES Final Result [facility] ([place]) 1 [facility] [place] [address] * Crossmatch (01/05/2020 4:00 PM JOINT CREASER) Crossmatch Compatible [facility] ([place]) Unit number for crossmatch [id number] [facility] ([place]) Crossmatch Compatible [facility] ([place]) Unit number for crossmatch [id number] [facility] ([place]) Blood specimen (specimen) 01/05/2020 4:00 PM JOINT CREASER 01/05/2020 4:03 PM JOINT CREASER us Jacklyn Spear MD LAB BLOOD BANK TEST ORDE NILS Edited Result - Final [facility] ([place]) 1 [facility] [place] [address] * Antibody screen (01/05/2020 4:00 PM JOINT CREASER) Rocky, indirect, Gel Interpretation Negative ABSC [facility] ([place]) Blood specimen (specimen) 01/05/2020 4:00 PM JOINT CREASER 01/05/2020 4:03 PM JOINT CREASER Narrative [facility] ([place]) - 01/05/2020 4:45 PM JOINT CREASER Has the patient had Daratumumab (Darzalex) in the past 6 months?->Unknown us Ana Stubbs MD LAB BLOOD BANK TEST ORDERABL ES Final Result Performing Organization Address City/[facility]/ZIP Co de Phone Number [facility] ([place]) 1 [facility] [place] [address] * ABO/Rh (01/05/2020 4:00 PM JOINT CREASER) ABO/Rh B Positive [facility] ([place]) Blood specimen (specimen) 01/05/2020 4:00 PM JOINT CREASER 01/05/2020 4:03 PM JOINT CREASER Narrative [facility] ([place]) - 01/05/2020 4:45 PM JOINT CREASER Has the patient had Daratumumab (Darzalex) in the past 6 months?->Unknown Ana Stubbs MD LAB BLOOD BANK TEST ORDERABL ES Final Result Performing Organization Address [facility] de Phone Number [facility]AN [facility] ([place]) 1 [facility] [place] [address] * (ABNORMAL) POC Guaiac occult blood, fecal, non-neoplasm (01/05/2020 2:17 PM JOINT CREASER) Guaiac occult blood, fecal Positive QC Positive Control Acceptable Stool 01/05/2020 2:17 PM JOINT CREASER Ana Stubbs MD POINT OF CARE TEST ORDERABLE S Final Result * ECG 12 lead (01/05/2020 1:48 PM JOINT CREASER) 01/05/2020 1:48 PM JOINT CREASER Narrative [facility] - 01/06/2020 6:07 AM JOINT CREASER Vent Rate: 78 bpm RR Interval: 760 msec NE Interval: 173 msec QRS Duration: 105 msec QT Interval: 404 msec QTC Interval: 438 msec P-R-T [place]: 49 - -9 - 74 degrees SINUS RHYTHM NORMAL ECG Electronically Signed By: uQang Diego MD us Ana Stubbs MD ECG ORDERABLES Final Result [facility] * aPTT (01/05/2020 12:42 PM JOINT CREASER) aPTT 30 25 - 37 sec [facility] ([place]) Comment: Interpretive data Heparin therapeutic range: 60-94 seconds Range based on correlation with therapeutic heparin activity range of 0.3-0.7 units/ml. Current interpretive data was last revised on 2019. Blood specimen (specimen) 01/05/2020 12:42 PM JOINT CREASER 01/05/2020 1:42 PM JOINT CREASER Ana Stubbs MD LAB BLOOD ORDERABLES Final R esult Performing Organization Address [facility] Co de Phone Number MEHRAN WILLIAM ([place]) 1 [facility] [employer] [place] [address] * (ABNORMAL) Protime-INR (01/05/2020 12:42 PM JOINT CREASER) PT 18.1(H) 9.5 - 13.0 sec [facility] ([place]) INR 1.6(H) 0.9 - 1.2 [facility] ([place]) Comment: Interpretive data Oral anticoagulant therapeutic ranges: Venous thromboembolism prophylaxis or treatment: 2.0-3.0 CARDIOLOGY Standard range: 2.0-3.0 High-intensity range: 2.5-3.5 Refer to indication-specific guidelines for appropriate target ranges for prosthetic heart valve replacement. Current interpretive data was last revised on 2019. Blood specimen (specimen) 01/05/2020 12:42 PM JOINT CREASER 01/05/2020 1:42 PM JOINT CREASER Ana Stubbs MD LAB BLOOD ORDERABLES Final R esult Performing Organization Address City/[facility] Co de Phone Number [facility]AN THOM[facility] ([place]) 1 [facility] [employer] [place] [address] * D-dimer, quantitative (01/05/2020 12:42 PM JOINT CREASER) D-Dimer 291 <=499 ng/mL FEU [facility]AS [...] 2019. Blood specimen (specimen) 01/05/2020 12:42 PM JOINT CREASER 01/05/2020 1:42 PM JOINT CREASER us Ana Stubbs MD LAB BLOOD ORDERABLES Final R esult Performing Organization Address City/[facility]/ZIP Co de Phone Number [facility]AN THOM[facility] ([place]) 1 [facility] [place] [address] * TSH reflex to free T4 (01/05/2020 12:41 PM JOINT CREASER) TSH 2.85 0.30 - 4.20 mcIUnit/mL [facility] ([place]) Blood specimen (specimen) 01/05/2020 12:41 PM JOINT CREASER 01/06/2020 7:16 AM JOINT CREASER Narrative [facility] ([place]) - 01/06/2020 7:51 AM JOINT CREASER Use already drawn blood us Neeru Gonzalez MD LAB BLOOD ORDERABLES Final Resul t [facility] ([place]) 1 [facility] [place] [address] * ABO / Rh Confirmation Testing (01/05/2020 12:41 PM JOINT CREASER) ABO/Rh Confirmation B Positive [facility] ([place]) Blood specimen (specimen) 01/05/2020 12:41 PM JOINT CREASER 01/05/2020 6:17 PM JOINT CREASER Ana Stubbs MD LAB BLOOD ORDERABLES Final R esult Performing Organization Address City/[facility]/ZIP Co de Phone Number ME[facility]AN THOMAS ([place]) 1 [facility] [place] [address] * Folate (01/05/2020 12:41 PM JOINT CREASER) Folic acid 9.5 >=5.0 ng/mL [facility] ([place]) Comment:Testing performed by : [facility], [address] [place] [address]., [id number] Blood specimen (specimen) 01/05/2020 12:41 PM JOINT CREASER 01/05/2020 7:20 PM JOINT CREASER Ana Stubbs MD LAB BLOOD ORDERABLES Final R esult Performing Organization Address [facility] Co de Phone Number MEHRAN THOMAS ([place]) 1 [facility] [place] [address] * Vitamin B12 (01/05/2020 12:41 PM JOINT CREASER) Vitamin B12 496 230 - 1,250 pg/mL [facility] ([place]) Comment:Testing performed by : [facility], [address] [place] [address]., [id number] Blood specimen (specimen) 01/05/2020 12:41 PM JOINT CREASER 01/05/2020 7:20 PM JOINT CREASER Ana Stubbs MD LAB BLOOD ORDERABLES Final R esult Performing Organization Address City/[facility]/ZIP Co de Phone Number ME[facility]AN THOMAS ([place]) 1 [facility] [place] [address] * (ABNORMAL) Iron profile w/ IBC (01/05/2020 12:41 PM JOINT CREASER) Iron 11(L) 35 - 145 mcg/dL [facility] TIBC 449(H) 250 - 400 mcg/dL [facility] ([place]) Transferrin saturation 2(L) 20 - 50 % [facility] ([place]) Blood specimen (specimen) 01/05/2020 12:41 PM JOINT CREASER 01/05/2020 2:29 PM JOINT CREASER Ana Stubbs MD LAB BLOOD ORDERABLES Final R esult [facility] ([place]) 1 [facility] Department [place] [address] * eGFR (01/05/2020 12:41 PM JOINT CREASER) eGFR 78 mL/min/1.7 3 m2 [facility] ([place]) Comment: Interpretive Data Reference Interval Normal ?>/= 90 mL/min/1.73m2 Mildly decreased* ? 60 - 89 mL/min/1.73m2 Mildly to moderately decreased ?45 - 59 mL/min/1.73m2 Moderately to severely decreased ??30 - 44 mL/min/1.73m2 Severely decreased ?15 - 29 mL/min/1.73m2 Kidney Failure ?< 15 ??mL/min/1.73m2 *Relative to young adult level If -[place] multiply value by 1.16. Estimated glomerular filtration [...] 2016. Blood specimen (specimen) 01/05/2020 12:41 PM JOINT CREASER 01/05/2020 12:56 PM JOINT CREASER us Ana Stubbs MD LAB BLOOD ORDERABLES Final R esult [facility] ([place]) 1 [facility] Department [place] [address] * (ABNORMAL) Differential, auto (01/05/2020 12:41 PM JOINT CREASER) Neutrophil abs 8.4(H) 1.7 - 6.5 K/cumm [...] Neutrophil pct 86.5 % [facility] ([place]) Comment: Interpretive Data Percent cell count reference [...] 2018. Basophil pct 0.4 % [facility] ([place]) Comment: Interpretive Data Percent cell count reference ranges are not reported, since discordance with absolute values may lead to misinterpretation of CBC data. Current Interpretive Data was last revised on 2018. Blood specimen (specimen) 01/05/2020 12:41 PM JOINT CREASER 01/05/2020 12:56 PM JOINT CREASER Ana Stubbs MD LAB BLOOD ORDERABLES Final R esult Performing Organization Address [facility] Co de Phone Number [facility] ([place]) 1 [facility] [place] [address] * Troponin T (01/05/2020 12:41 PM JOINT CREASER) Troponin T <0.01 0.00 - 0.01 ng/mL [facility] ([place]) Comment: Interpretive Data Reference ranges for children <18 years of age have not been established. - > or = 18 years: Serial determinations are recommended for the diagnosis of myocardial infarction. ??Temporal rise and fall are consistent with myocardial infarction when at least one value is above the 99th percentile upper reference limit for troponin assay. ??Journal of the [place] [employer] 2012;60:1581-98. Current Interpretive Data Last Revised Date: 2018. Blood specimen (specimen) 01/05/2020 12:41 PM JOINT CREASER 01/05/2020 12:56 PM JOINT CREASER Ana Stubbs MD LAB BLOOD ORDERABLES Final R esult Performing Organization Address [facility] Co de Phone Number [facility] ([place]) 1 [facility] [place] [address] * Pro B-type natriuretic peptide (01/05/2020 12:41 PM JOINT CREASER) NT-proBNP 86 <=300 pg/mL [facility] ([place]) [...] 2018. Blood specimen (specimen) 01/05/2020 12:41 PM JOINT CREASER 01/05/2020 12:56 PM JOINT CREASER us Ana Stubbs MD LAB BLOOD ORDERABLES Final R esult [facility] ([place]) 1 [facility] Department [place] [address] * Comprehensive metabolic panel (01/05/2020 12:41 PM JOINT CREASER) Sodium 135 135 - 145 mmol/L CERNER [...] ([place]) Blood specimen (specimen) 01/05/2020 12:41 PM JOINT CREASER 01/05/2020 12:56 PM JOINT CREASER Ana Stubbs MD LAB BLOOD ORDERABLES Final R esult [facility] ([place]) 1 [facility] [employer] [place] [address] * (ABNORMAL) CBC with auto differential (01/05/2020 12:41 PM JOINT CREASER) WBC 9.7 3.8 - 9.9 K/cumm CERNER [...] ([place]) Blood specimen (specimen) 01/05/2020 12:41 PM JOINT CREASER 01/05/2020 12:56 PM JOINT CREASER Ana Stubbs MD LAB BLOOD ORDERABLES Final R esult [facility] TH[facility] ([place]) 1 [facility] [place] [address] * XR Chest Pa Lateral 2 Views (01/05/2020 12:23 PM JOINT CREASER) Anatomical Region Laterality Modality Body, Chest N/A Computed Radiogr aphy 01/05/2020 12:3 1 PM JOINT CREASER Impressions 01/05/2020 12:32 PM JOINT CREASER 1. ??No acute abnormality. 2. ??Moderate to large hiatal hernia. Electronically signed by: Jonathan Barber M.D. Narrative 01/05/2020 12:32 PM JOINT CREASER EXAMINATION: XR CHEST PA LATERAL 2 VIEWS [...] SBP<105 and/or HR<55 Given 01/07/2020 12:08 PM JOINT CREASER 6.25 mg Given 01/06/2020 5:49 PM JOINT CREASER 6.25 mg Given 01/06/2020 8:09 AM JOINT CREASER 6.25 mg ondansetron (ZOFRAN) injection 4 mg [...] type and size. Given 01/06/2020 4:09 PM JOINT CREASER 10 mL documented in this encounter Discontinued Medications Medication Sig Discontinue Reason Start Date End Da te methotrexate 2.5 mg tablet Take 12.5 mg by mouth every 7 days sunday Stop Taking at Discharge 10/30/2018 01/07/2020 documented as of this encounter Active and Recently Administered Medications Times are shown in JOINT CREASER. Scheduled Medication Order 01/05/2020 01/06/2020 01/07/2020 bisacodyl [...] Transfer Provider - Reason: Patient not available)0819 ([facility] Unhold - Provider: Automatic Transfer Provider)0822 ([facility] Hold - Provider: Automatic Transfer Provider - Reason: Patient not available)1057 ([facility] Unhold - Provider: Automatic Transfer Provider)1208 (Given - Provider: Lupe Cristina RN) ferric gluconate (FERRLECIT) 125 mg of elemental iron in sodium chloride 0.9% 100 mL IVPB (COMPLETED) 125 mg of elemental iron, intravenous, at 110 mL/hr, Administer over 60 Minutes, Once, On Sun01/06/20 at 0800, For 1 dose, Room temperature only 0829 ([facility] Bag - Provider: Doris Monroy RN) [...] Provider: Doris Monroy RN)195 (Given - Provider: Marianen Masterson, RN) sodium chloride 0.9% flush 0.5-20 [...] Provider: Marianne Masterson, TAO - Reason: Other)0818 ([facility] Hold - Provider: Automatic Transfer Provider - Reason: Patient not available)0819 ([facility] Unhold - Provider: Automatic Transfer Provider)0822 ([facility] Hold - Provider: Automatic Transfer Provider - Reason: Patient not available)1057 ([facility] Unhold - Provider: Automatic Transfer Provider)1400 (Due [...] at 0541, Indications: Nausea and Vomiting 0818 ([facility] Hold - Pro vider: Automatic Transfer Provider - Reason: Patient not available)0819 ([facility] Unhold - Provider: Automatic Transfer Provider)0822 ([facility] Hold - Provider: Automatic Transfer Provider - Reason: Patient not available)1057 ([facility] Unhold - Provider: Automatic Transfer Provider) ondansetron ODT (ZOFRAN-ODT) disintegrating tablet 4 mg(Linked Group 1) 4 mg, oral, Every 6 hours PRN, nausea, vomiting, Starting on Sun01/06/20 at 0541, Indications: Nausea and Vomiting 0818 ([facility] Hold - Pro vider: Automatic Transfer Provider - Reason: Patient not available)0819 ([facility] Unhold - Provider: Automatic Transfer Provider)0822 ([facility] Hold - Provider: Automatic Transfer Provider - Reason: Patient not available)1057 ([facility] Unhold - Provider: Automatic Transfer Provider) sodium chloride 0.9% flush 0.5-20 mL 0.5-20 mL, intra-catheter, As needed, line care, Starting on Sun01/06/20 at 0541, Flush volume based on line type and size. Flush before and after each use. 0818 ([facility] Hold - Pro vider: Automatic Transfer Provider - Reason: Patient not available)0819 ([facility] Unhold - Provider: Automatic Transfer Provider)0822 ([facility] Hold - Provider: Automatic Transfer Provider - Reason: Patient not available)1057 ([facility] Unhold - Provider: Automatic Transfer Provider) Linked [...] 01/05/2020 documented in this encounter Care Teams Area Captain Relationship Specialty Start Date End Date Inez Long MD PCP - General 02/23/17 05/15/22 Neil Ag MD PhD [address] [place] [address] Radiation Oncologist Radiation Oncology 12/17/18 [place] [address] [address] [facility] [address] [facility] [place] [id number] Referring Physician General Surgery 12/17/18 [place] [address] [address] [facility] [address] [facility] [place] [id number] Medical Oncologist/Rejected Items Clerk Medical Oncology 12/17/18 [place] [address] [address] [facility] [address] [place] [id number] Consulting Physician Gastroenterology 01/07/20 documented as of this encounter
--- OUTSIDE RECORDS SUMMARY | 2024-11-16 15:38 | XMS_ITS | Encounter Summary ---
Author Organization [facility] Healthcare Address [address] [place] [address] Care Team Providers Care Cloth Hauler Name Role Phone Francisco Long MD Primary Care Provider [phone] Neil Ag MD PhD Unavailable [phone] Ita Vazquez MD Unavailable Caron Mohan MD Unavailable Pebbles Felton MD Unavailable [phone] Encounter Details Date Type Department Care Team (Late st Contact Info) Description 01/07/2020 9:24 AM FOREST SUPERVISOR Anesthesia Event [facility] [address] [place] [address] Suzanne Dash MD PhD [address] [place] [address] Anesthesia Record Procedure Summary Procedure Name Responsible [...] on file Legal Sex Female 12:21 PM FOREST SUPERVISOR Gender Identity Not on file Sexual Orientation Not on file documented as of this encounter OR Notes * Anesthesia Postprocedure Evaluation - Suzanne Dash MD PhD - 01/07/2020 10:54 AM CST Patient: Jolene Cedillo Procedure Summary Date: 01/07/20 Room / Location: [facility] ENDOSCOPY ROOM 1 / [facility] ENDOSCOPY Anesthesia Start: 923 Anesthesia Stop: [...] acceptable Pt is: normothermic Nausea/Vomiting status: none ST SUPERVISOR * Anesthesia Preprocedure Evaluation - Suzanne Dash [...] Signed By: Reyes Unger MD 2019-12-03 13:04:47 FOREST SUPERVISOR Respiratory + Pulmonary hypertension Echo PA systolic: [...] is Floor. Informed Consent: Discussed plan with MEDIA PRODUCTION SUPPORT MANAGER and attending. Anesthesia plan and risks discussed with patient. Consent and Attending signature: I and/or my designee have discussed the anesthesia plan, benefits, possible alternatives, parental presence at time of induction (if indicated), and clinically relevant risks that may include dental injury, unintentional awareness, and/or other complications. The patient and/or parent/legal guardian understand, and agree to proceed. All questions answered. ST SUPERVISOR documented in this encounter Plan of [...] Ventricular ArrhythmiasIndications:Ventricular Arrhythmias Given 01/07/2020 9:36 AM FOREST SUPERVISOR 100 mg propofol (DIPRIVAN) IV intravenous, As needed, Starting on Sun01/07/20 at 0936, Anesthesia Intra-op Given 01/07/2020 9:53 AM FOREST SUPERVISOR 20 mg Given 01/07/2020 9:48 AM FOREST SUPERVISOR 20 mg Given 01/07/2020 9:46 AM FOREST SUPERVISOR 40 mg sodium chloride 0.9% infusion 30 mL/hr, intravenous, Continuous, Starting on Sun01/07/20 at 0900, Pre-Procedure (GI) Rate/Dose Verify 01/07/2020 9:22 AM FOREST SUPERVISOR New Bag 01/07/2020 8:27 AM FOREST SUPERVISOR 30 mL/hr 30 mL/hr documented in this encounter Care Teams Cloth Hauler Relationship Specialty Start Date End Date Francisco Long MD PCP - General 02/23/17 05/15/22 Neil Ag MD PhD [address] [place] [address] Radiation Oncologist Radiation Oncology 12/17/18 [place] [address] [address] [facility] [address] [place] [id number] Referring Physician General Surgery 12/17/18 [place] [address] [address] [facility] [address] [id number] Medical Oncologist/Counter Supervisor Medical Oncology 12/17/18 [place] [address] [address] [place] [place] [address] Consulting Physician Gastroenterology 01/07/20 documented as of this encounter
--- OUTSIDE RECORDS SUMMARY | 2024-11-16 15:39 | XMS_ITS | Encounter Summary ---
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 Gender Identity Not on file Sexual Orientation Not on file documented as of this encounter Plan of Treatment Not on file documented as of this encounter Visit Diagnoses Not on filedocumented in this encounter Care Teams Professor Of Communication Arts Relationship Specialty Start Date End Date Francisco Long MD PCP - General 02/23/17 05/15/22 Neil Ag MD PhD [address] [place] [address] Radiation Oncologist Radiation Oncology 12/17/18 [place] [address] [address] [facility] [address] [place] [address] Referring Physician General Surgery 12/17/18 [place] [address] [address] [facility] [address] [place] [address] Medical Oncologist/Highway Construction Inspector Medical Oncology 12/17/18 documented as of this encounter
--- OUTSIDE RECORDS SUMMARY | 2024-11-16 15:39 | XMS_ITS | Encounter Summary ---
Author Organization [facility] Address [address] [facility] [address] [place] [address] Care Team Providers Care Payroll Technician Name Role Phone Francisco Long MD Primary Care Provider Neil Ag MD PhD Unavailable [phone] Ita Vazquez MD Unavailable Caron Mohan MD Unavailable Reason for Visit * Reason Comments pulmonary embolism f/u Shortness of Breath f/u Encounter Details Date Type Department Care Team (Late st Contact Info) Description 01/01/2020 10:15 AM PSYCHIATRIC SPECIALIST Office Visit [facility] 2 [facility] [address] [place] [address] Francisco Long MD [address] [place] [address] [address] [place] [address] Multiple subsegmental pulmonary emboli without [...] file Legal Sex Female 12:21 PM PSYCHIATRIC SPECIALIST Gender Identity Not on file Sexual Orientation Not on file documented as of this encounter Last Filed Vital Signs Vital Sign Reading Time Taken Comments Blood Pressure 130/70 01/01/2020 10:13 AM PSYCHIATRIC SPECIALIST Pulse 60 01/01/2020 10:13 AM PSYCHIATRIC SPECIALIST Temperature - - Respiratory Rate 24 01/01/2020 10:13 AM PSYCHIATRIC SPECIALIST Oxygen Saturation - - Inhaled Oxygen Concentration - - Weight 85.3 kg (188 lb) 01/01/2020 10:13 AM PSYCHIATRIC SPECIALIST Height 170.2 cm (5' 7 ) 01/01/2020 10:13 AM PSYCHIATRIC SPECIALIST Body Mass Index 29.44 01/01/2020 10:13 AM PSYCHIATRIC SPECIALIST documented in this encounter Progress Notes * [...] she had a deep venous thrombosis at [facility] where she had the operation no previous [...] in agreement with the plan of care. HIATRIC SPECIALIST documented in this encounter Plan of [...] daily added in this encounter Care Teams Payroll Technician Relationship Specialty Start Date End Date Francisco Long MD PCP - General 02/23/17 05/15/22 Neil Ag MD PhD [address] [place] [address] Radiation Oncologist Radiation Oncology 12/17/18 [place] [address] [employer] [facility] [place] [address] Referring Physician General Surgery 12/17/18 [place] [address] [employer] [facility], [place] [id number] Medical Oncologist/Microbiology Soil Scientist Medical Oncology 12/17/18 documented as of this encounter
--- OUTSIDE RECORDS SUMMARY | 2024-11-16 15:39 | XMS_ITS | Encounter Summary ---
Author Organization [facility] Address [address] [place] [address] Care Team Providers Care Consumer Attorney Name Role Phone Francisco Long MD Primary Care Provider [phone] Neil Ag MD PhD Unavailable [phone] Ita Vazquez MD Unavailable Caron Mohan MD Unavailable Encounter Details Date Type Department Care Team (Latest Contact Info) Description 12/01/2019 3:00 PM TIRE ROOM SUPERVISOR - 12/01/2019 11:59 PM TIRE ROOM SUPERVISOR Hospital Encounter [facility] Res[facility] 1 [place] [address] Francisco Long MD [address] [place] [address] Discharge Disposition: Discharge to home or self [...] on file Legal Sex Female 12:21 PM TIRE ROOM SUPERVISOR Gender Identity Not on file Sexual [...] emboli of the chest / hold call ROOM SUPERVISOR documented in this encounter Plan of Treatment Not on file documented as of this encounter Procedures Procedure Name Priority Date/Time Associated Diagnosis Comments BLOOD GAS, ARTERIAL STAT 12/01/2019 3 :45 PM TIRE ROOM SUPERVISOR documented in this encounter Results * (ABNORMAL) Blood gas, arterial (12/01/2019 3:45 PM TIRE ROOM SUPERVISOR) pH, Art 7.48(H) 7.35 - 7.45 [facility]) PCO2, Arterial 34(L) 35 - 45 mmHg [facility] PO2, Arterial 68(L) 83 - 108 mmHg [facility] ([place]) HCO3 Art (Calculated) 25 20 - 30 mmol/L [facility] ([place]) BE, art 2 mmol/L [facility]) Comment: Interpretive Data No Reference Range Established Current Interpretive Data was last revised on 2017 O2 Sat Art (Measured) 94 90 - 95 % [facility] ([place]) Blood specimen (specimen) 12/01/2019 3:45 PM TIRE ROOM SUPERVISOR 12/01/2019 3:47 PM TIRE ROOM SUPERVISOR Francisco Long MD LAB BLOOD ORDERABLES Final Res ult [facility] ([place]) 1 [facility] [place] [address] documented in this encounter Visit Diagnoses Not on filedocumented in this encounter Care Teams Consumer Attorney Relationship Specialty Start Date End Date Francisco Long MD PCP - General 02/23/17 05/15/22 Neil Ag MD PhD [address] [place] [address] Radiation Oncologist Radiation Oncology 12/17/18 [place] [address] [place] [id number] Referring Physician General Surgery 12/17/18 [place] [address] [address] [place] [id number] Medical Oncologist/Job Forwarder Medical Oncology 12/17/18 documented as of this encounter
--- OUTSIDE RECORDS SUMMARY | 2024-11-16 15:39 | XMS_ITS | Encounter Summary ---
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 Gender Identity Not on file Sexual Orientation Not on file documented as of this encounter Plan of Treatment Not on file documented as of this encounter Visit Diagnoses Not on filedocumented in this encounter Care Teams Private Pilot Relationship Specialty Start Date End Date Francisco Long MD PCP - General 02/23/17 05/15/22 Neil Ag MD PhD [address] [place] [address] Radiation Oncologist Radiation Oncology 12/17/18 [place] [address] [address] Referring Physician General Surgery 12/17/18 [place] [address] [address] Medical Oncologist/Stained Glass Artist Medical Oncology 12/17/18 documented as of this encounter
--- OUTSIDE RECORDS SUMMARY | 2024-11-16 15:39 | XMS_ITS | Encounter Summary ---
Author Organization [facility] Address [address] [facility] [address] [place] [address] Care Team Providers Care Remote Encoding Center Manager Name Role Phone Francisco Long MD Primary Care Provider [phone] Neil Ag MD PhD Unavailable [phone] Ita Vazquez MD Unavailable Caron Mohan MD Unavailable Encounter Details Date Type Department Care Team (Late st Contact Info) Description 12/01/2019 Telephone [facility] 2 [facility] [address] [place] [address] Francisco Long MD [address] [place] [address] [address] [place] [address] Social History Tobacco Use Types Packs/Day Years Used Date Smoking Tobacco: Never Smokeless Tobacco: Never Alcohol Use Standard Drinks/Week Comments No 0 (1 standard drink = 0.6 oz pur e alcohol) PHQ-2 Answer Date Recorded PHQ-2 Score 0 07/17/2019 Comments Unknown Sex and Gender Information Value Date Recorded Sex Assigned at Not on file Legal Sex Female 12:21 PM PRODUCTION SPECIALIST Gender Identity Not on file Sexual Orientation Not on file documented as of this encounter Miscellaneous Notes * Telephone Encounter - Latoya Cotton MA - 12/01/2019 4:56 PM PRODUCTION SPECIALIST Sent to referrals in result note UCTION SPECIALIST * Telephone Encounter - Latoya Cotton MA - 12/01/2019 4:55 PM PRODUCTION SPECIALIST ----- Message from Francisco Long MD sent at 12/01/2019 4:41 PM PRODUCTION SPECIALIST ----- Left a message on her answering machine regarding her blood gas schedule CT scan of the chest tomorrow with contrast rule out PE UCTION SPECIALIST documented in this encounter Plan of Treatment Not on file documented as of this encounter Visit Diagnoses Not on filedocumented in this encounter Care Teams Remote Encoding Center Manager Relationship Specialty Start Date End Date Francisco Long MD PCP - General 02/23/17 05/15/22 Neil Ag MD PhD [address] [place] [address] Radiation Oncologist Radiation Oncology 12/17/18 [place] [address] [id number] Referring Physician General Surgery 12/17/18 [place] [address] [id number] Medical Oncologist/Manager Investigations Medical Oncology 12/17/18 documented as of this encounter
--- OUTSIDE RECORDS SUMMARY | 2024-11-16 15:39 | XMS_ITS | Encounter Summary ---
Author Organization [facility] Address [address] [place] [address] Care Team Providers Care Audiology Technician Name Role Phone Inez Long MD Primary Care Provider [phone] Neil Ag MD PhD Unavailable [phone] Ita Vazquez MD Unavailable Caron Mohan MD Unavailable Reason for Referral * Diagnostic Imaging (Routine) - Closed Specialty Diagnoses / Procedures Referred By Halima t Referred To Contact Diagnoses Pulmonary embolism, unspecified chronicity, unspecified pulmonary embolism type, unspecified whether acute cor pulmonale present (HCC) Procedures US Vein Duplex Lower Extremity Bilateral Complete Inez Long MD Phone: tel: fax: [facility] 1 [place] [address] Referral ID Status Reason Start Date Expiration Date Visits Re quested Visits Authorized [id number] Closed 12/09/2019 06/19/2021 1 1 INSPECTOR Encounter Details Date Type Department Care Team (Late st Contact Info) Description 12/09/2019 Orders Only [facility] 2 [facility] [address] [place] [address] Inez Long MD [address] [place] [address] [address] [place] [address] Pulmonary embolism, unspecified chronicity, unspecified [...] on file Legal Sex Female 12:21 PM MILK INSPECTOR Gender Identity Not on file Sexual Orientation Not on file documented as of this encounter Plan of Treatment Not on file documented as of this encounter Results * US Vein Duplex Lower Extremity Bilateral Complete (12/11/2019 3:05 PM MILK INSPECTOR) Anatomical Region Laterality Modality Vascular Bilateral Ultrasound 12/11/2019 4:04 PM MILK INSPECTOR Addenda Addendum by Saqib Potter MD on 12/30/2019 4:06 PM MILK INSPECTOR This addendum supersedes the initial report. Spectral Doppler sonographic evaluation not performed. Electronically signed by: Saqib Potter M.D. Impressions 12/11/2019 4:05 PM MILK INSPECTOR Negative for lower extremity deep venous thrombosis. Electronically signed by: Saqib Potter M.D. Narrative 12/11/2019 4:05 PM MILK INSPECTOR EXAMINATION: US VEIN DUPLEX LOWER EXTREMITY BILATERAL [...] by: Saqib Potter M.D. Inez Long MD [facility] PROCEDURES Edited Resul t - Final documented in this encounter Visit Diagnoses Diagnosis Pulmonary embolism, unspecified chronicity, unspecified pulmonary embolism type, unspecified whether acute cor pulmonale present (HCC)- Primary Pulmonary embolism, unspecified chronicity, unspecified pulmonary embolism type, unspecified whether acute cor pulmonale present (HCC) documented in this encounter Care Teams Audiology Technician Relationship Specialty Start Date End Date Inez Long MD PCP - General 02/23/17 05/15/22 Neil Ag MD PhD 6 [place] [address] Radiation Oncologist Radiation Oncology 12/17/18 [place] [address] [address] [facility] [address] [place] [address] Referring Physician General Surgery 12/17/18 [place] [address] [address] [facility] [address] [place] [address] Medical Oncologist/Mortgage Operations Manager Medical Oncology 12/17/18 documented as of this encounter
--- OUTSIDE RECORDS SUMMARY | 2024-11-16 15:39 | XMS_ITS | Encounter Summary ---
Author Organization [facility] Address [address] [facility] [address] [place] [address] Care Team Providers Care Oyster Planter Name Role Phone Francisco Long MD Primary Care Provider Neil Ag MD PhD [facility]available [facility] Un[facility] Caron Mohan MD Unavailable Pebbles Felton MD Unavailable [phone] CruzMounika roman RN Unavailable [phone] Encounter Details Date Type Department Care Team (Late st Contact Info) Description 01/05/2020 Orders Only [facility] [address] [facility] [address] [place] [address] Francisco Long MD [address] [place] [address] [address] [place] [address] Anemia, unspecified type (Primary Dx); Controlled diabetes mellitus type 2 with complications, unspecified whether terminal make up operator insulin use ([facility]) Social History Tobacco Use Types Packs/Day Years [...] on file Legal Sex Female 12:21 PM EVAPORATOR OPERATOR Gender Identity Not on file Sexual [...] on: 01/03/2021 09:14 AM Modules accepted: Orders ORATOR OPERATOR * Addendum Note - Cierra Burton - 01/05/2020 9:46 AM CSTAddended by: CIERRA BURTON on: 01/03/2021 09:15 AM Modules accepted: Orders ORATOR OPERATOR documented in this encounter Plan of Treatment Not on file documented as of this encounter Results * (ABNORMAL) Protein Electrophoresis, With Reflex, Serum (01/03/2021 9:19 AM EVAPORATOR OPERATOR) Protein, sr 5.7(L) 6.2 - 8.2 g/dL [facility] ([place]) Comment:Testing performed by : [facility], [address] [place] [address]., [address] Albumin 3.5 3.2 - 5.0 g/dL [facility] ([place]) Comment:Testing performed by : [facility], [address] [place] [address], [place]., [address] Alpha-1 globulin 0.4 0.2 - 0.4 g/dL [facility] ([place]) Comment:Testing performed by : [facility], [address] [place] [address], [address] Alpha-2 globulin 0.6 0.5 - 1.0 g/dL [facility] ([place]) Comment:Testing performed by : [facility], [address] [place] [address], [address] Beta-1 globulin 0.5 0.3 - 0.6 g/dL [facility] ([place]) Comment:Testing performed by : [facility], [address] [place] [address], [address] Beta-2 globulin 0.2 0.2 - 0.6 g/dL [facility] ([place]) Comment:Testing performed by : [facility], [address] [place] [address], [address] Gamma globulin 0.5 0.5 - 1.7 g/dL [facility] ([place]) Comment:Testing performed by : [facility], [address] [place] [address], [address] SPEP interp See Cl Path Rpt [facility] ([place]) Comment:Testing performed by : [facility], [address] [place] [address], [address] Blood specimen (specimen) 01/03/2021 9:19 AM EVAPORATOR OPERATOR 01/03/2021 2:34 PM EVAPORATOR OPERATOR Francisco Long MD LAB BLOOD ORDERABLES Final Res ult [facility] ([place]) 1 [facility] Department [place] [address] * Folate (01/03/2021 9:19 AM EVAPORATOR OPERATOR) Folic acid 9.3 >=5.0 ng/mL [facility] ([place]) Comment:Testing performed by : [address], [address] Blood specimen (specimen) 01/03/2021 9:19 AM EVAPORATOR OPERATOR 01/03/2021 2:34 PM EVAPORATOR OPERATOR Francisco Long MD LAB BLOOD ORDERABLES Final Res ult Performing Organization Address City/[facility]/ZIP Co de Phone Number [facility] ([place]) 1 [place] [address] * Vitamin B12 (01/03/2021 9:19 AM EVAPORATOR OPERATOR) [facility] Vitamin B12 492 230 - 1,250 pg/mL [facility] ([place]) Comment:Testing performed by : [facility], [address] [place] [address], [address] Blood specimen (specimen) 01/03/2021 9:19 AM EVAPORATOR OPERATOR 01/03/2021 2:34 PM EVAPORATOR OPERATOR Francisco Long MD LAB BLOOD ORDERABLES Final Res ult Performing Organization Address [facility] de Phone Number [facility] ([place]) 1 [place] [address] * Hemoglobin A1c (01/03/2021 9:19 AM EVAPORATOR OPERATOR) [facility] Hgb A1C 5.2 4.0 - 5.6 % [facility] [place] Estimated Average Glucose 103 mg/dL [facility]) Comment: The ADA recommends reporting an estimated Average Glucose (eAG) with all Hemoglobin A1c results using the equation derived from a study of 507 normal and diabetic adults. ??Minority populations were underrepresented and children were not included. ?? (Diabetes Care 31:9004-4991, 2008). ??The eAG is not equivalent to a fasting glucose. Blood specimen (specimen) 01/03/2021 9:19 AM EVAPORATOR OPERATOR 01/03/2021 10:17 AM EVAPORATOR OPERATOR Francisco Long MD LAB BLOOD ORDERABLES Final Res ult Performing Organization Address [facility]/ZIP Co de Phone Number [facility] ([place]) 1 [place] [address] * (ABNORMAL) CBC with auto differential (01/03/2021 9:19 AM EVAPORATOR OPERATOR) WBC 5.6 3.8 - 9.9 K/cumm [facility] [...] NRBC abs 0.03(H) 0.00 - 0.01 K/cumm [facility]) Blood specimen (specimen) 01/03/2021 9:19 AM EVAPORATOR OPERATOR 01/03/2021 10:17 AM EVAPORATOR OPERATOR us Francisco Long MD LAB BLOOD ORDERABLES Final Res ult [facility] ([place]) 1 [facility] Department [place] [address] documented in this encounter Visit Diagnoses Diagnosis Anemia, unspecified type- Primary Controlled diabetes mellitus type 2 with complications, unspecified whether terminal make up operator insulin use (HCC) documented in this encounter Additional Health Concerns Infection Onset Date Last Indicated Resolved Time COVID: Suspected 12/28/2020 12/28/2020 12/29/2020 7:21 AM EVAPORATOR OPERATOR Respiratory Infection (TITI), contact + droplet Comment:Automatically added due to negative COVID-19 result. 12/29/2020 12/29/2020 01/12/2021 3:0 6 AM EVAPORATOR OPERATOR documented as of this encounter Care Teams Oyster Planter Relationship Specialty Start Date End Date Francisco Long MD PCP - General 02/23/17 05/15/22 Neil Ag MD PhD 6 [place] [address] Radiation Oncologist Radiation Oncology 12/17/18 [place] [address] [address] [facility] [address] [place], [place] [id number] Referring Physician General Surgery 12/17/18 [place] [address] [address] [facility] [address] [place], [place] [id number] Medical Oncologist/Bilingual Research Interviewer Medical Oncology 12/17/18 [place] [address] [address] [facility] [address] [place] [address] Consulting Physician Gastroenterology 01/07/20 Mounika Cruz, TAO [address] [place] [address] [address] [place] [address] Blue Leather Setter 11/17/20 11/28/20 documented as of this encounter
--- OUTSIDE RECORDS SUMMARY | 2024-11-16 15:39 | XMS_ITS | Encounter Summary ---
Author Organization [facility] Facility Care Team Providers Care Actuarial Trainee Name Role Phone Francisco Long MD Primary Care Provider [phone] Neil Ag MD PhD Unavailable [phone] Ita Vazquez MD Unavailable Caron Mohan MD [...] file Legal Sex Female 12:21 PM HAND ROLLER Gender Identity Not on file Sexual Orientation Not on file documented as of this encounter Plan of Treatment Not on file documented as of this encounter Visit Diagnoses Not on filedocumented in this encounter Care Teams Actuarial Trainee Relationship Specialty Start Date End Date Francisco Long MD PCP - General 02/23/17 05/15/22 Neil Ag MD PhD 6 [place] [address] Radiation Oncologist Radiation Oncology 12/17/18 [place] [address] [address] [facility] [address] [place] [address] Referring Physician General Surgery 12/17/18 [place] [address] [address] [facility] [address] [place] [address] Medical Oncologist/Editor In Chief Newspaper Medical Oncology 12/17/18 documented as of this encounter
--- OUTSIDE RECORDS SUMMARY | 2024-11-16 15:39 | XMS_ITS | Encounter Summary ---
Author Organization [facility] Healthcare Address [address] [place] [address] Care Team Providers Care Internet Marketing Executive Name Role Phone Francisco Long MD Primary Care Provider Neil Ag MD PhD Unavailable Ita estrada MD Unavailable Caron Mohan MD Unavailable [phone] Encounter Details Date Type Department Care Team (Latest Contact Info) Description 01/05/2020 12:14 PM CEMENTER MACHINE JOINER - 01/05/2020 1:33 PM [facility] Hospital Encounter [facility] 1 [place] [address] Sharath Mejia MD [address] [place] [address] Discharge Disposition: Discharge to home or self [...] on file Legal Sex Female 12:21 PM CEMENTER MACHINE JOINER Gender Identity Not on file Sexual Orientation [...] LATERAL 2 VIEWS ED 01/05/2020 12:23 PM CEMENTER MACHINE JOINER documented in this encounter Results * XR Chest Pa Lateral 2 Views (01/05/2020 12:23 PM CEMENTER MACHINE JOINER) Anatomical Region Laterality Modality Body, Chest N/A Computed Radiogr aphy 01/05/2020 12:3 1 PM CEMENTER MACHINE JOINER Impressions 01/05/2020 12:32 PM CEMENTER MACHINE JOINER 1. ??No acute abnormality. 2. ??Moderate to large hiatal hernia. Electronically signed by: Jonathan Barber M.D. Narrative 01/05/2020 12:32 PM CEMENTER MACHINE JOINER EXAMINATION: XR CHEST PA LATERAL 2 VIEWS [...] on filedocumented in this encounter Care Teams Internet Marketing Executive Relationship Specialty Start Date End Date Francisco Long MD PCP - General 02/23/17 05/15/22 Neil Ag MD PhD [address] [place] [address] Radiation Oncologist Radiation Oncology 12/17/18 [place] [address] [facility] [address] [place] [address] Referring Physician General Surgery 12/17/18 [place] [address] [place] [address] Medical Oncologist/Protection Analyst Medical Oncology 12/17/18 documented as of this encounter
--- OUTSIDE RECORDS SUMMARY | 2024-11-16 15:39 | XMS_ITS | Encounter Summary ---
Author Organization [facility] Medical Group Address [address] [facility] [address] [place] [address] Care Team Providers Care Food Service Attendant Name Role Phone Francisco Long MD Primary Care Provider [phone] Neil Ag MD PhD Unavailable [phone] Ita estrada MD Unavailable Caron Mohan MD Unavailable Encounter Details Date Type Department Care Team (Late st Contact Info) Description 12/15/2019 Telephone [place] [facility] 2 [facility] [address] [place] [address] Jami Pettit MA Social History [...] on file Legal Sex Female 12:21 PM CARE REP Gender Identity Not on file Sexual Orientation Not on file documented as of this encounter Miscellaneous Notes * Telephone Encounter - Jami Petitt MA - 12/15/2019 8:34 AM CARE REP Patient aware REP * Telephone Encounter - Jami Pettit MA - 12/15/2019 8:33 AM CARE REP ----- Message from Francisco Long MD sent at 12/15/2019 6:47 AM CARE REP ----- Each Doppler test shows no blood clots in the legs okay to leave a message Doppler test shows no blood clots in the legs REP REP documented in this encounter Plan of Treatment Not on file documented as of this encounter Visit Diagnoses Not on filedocumented in this encounter Care Teams Food Service Attendant Relationship Specialty Start Date End Date Francisco Long MD PCP - General 02/23/17 05/15/22 Neil Ag MD PhD [address] [place] [address] Radiation Oncologist Radiation Oncology 12/17/18 [place] [address] [address] [place] [address] Referring Physician General Surgery 12/17/18 [place] [address] [address] [employer], [place] [id number] Medical Oncologist/Master Cosmetologist Medical Oncology 12/17/18 documented as of this encounter
--- OUTSIDE RECORDS SUMMARY | 2024-11-16 15:39 | XMS_ITS | Encounter Summary ---
Author Organization [facility] Medical Group Address [address] [facility] [address] [place] [address] Care Team Providers Care Grocery Store Courtesy Clerk Name Role Phone Francisco Long MD Primary Care Provider Neil Ag MD PhD Unavailable Ita Vazquez MD Unavailable Caron Mohan MD Unavailable [phone] Marelni Chiu MA Unavailable Encounter Details Date Type Department Care Team (Late st Contact Info) Description 12/02/2019 Orders Only [facility] Internal [facility] 2 [facility] [address] [place] [address] Francisco Long MD [address] [place] [address] [address] [place] [address] Abnormal blood gases (Primary Dx); [...] on file Legal Sex Female 12:21 PM LAB TECHNICIAN Gender Identity Not on file Sexual Orientation Not on file documented as of this encounter Plan of Treatment Not on file documented as of this encounter Visit Diagnoses Diagnosis Abnormal blood gases- Primary Cough Pulmonary embolism, unspecified chronicity, unspecified pulmonary embolism type, unspecified whether acute cor pulmonale present (HCC) documented in this encounter Care Teams Grocery Store Courtesy Clerk Relationship Specialty Start Date End Date Francisco Long MD PCP - General 02/23/17 05/15/22 Neil Ag MD PhD 6 [place] [address] Radiation Oncologist Radiation Oncology 12/17/18 [place] [address] [address] [facility] [address] [place], [place] [id number] Referring Physician General Surgery 12/17/18 [place] [address] [address] [facility] [address] [place], [place] [id number] Medical Oncologist/Inspector Structural Bonding Medical Oncology 12/17/18 Marleni Chiu MA [address] [place] [address] [address] [place] [address] ACO Care Assembly Stock Supervisor 12/04/19 12/04/19 documented as of this encounter
--- OUTSIDE RECORDS SUMMARY | 2024-11-16 15:39 | XMS_ITS | Encounter Summary ---
Author Organization [facility] Medical Group Address [address] [facility] [address] [place] [address] Care Team Providers Care Earth Burner Name Role Phone Francisco Long MD Primary Care Provider [phone] Neil Ag MD PhD Unavailable [phone] Ita Vazquez MD Unavailable Caron Mohan MD Unavailable Marleni Chiu MA Unavailable [phone] Encounter Details Date Type Department Care Team (Late st Contact Info) Description 12/04/2019 Telephone [place] [facility] [address] [facility] [address] [place] [address] Jami Pettit MA Social History [...] on file Legal Sex Female 12:21 PM REGISTERED RESPIRATORY TECHNICIAN Gender Identity Not on file Sexual Orientation Not on file documented as of this encounter Miscellaneous Notes * Telephone Encounter - Jami Pettit MA - 12/04/2019 8:40 AM REGISTERED RESPIRATORY TECHNICIAN LMOM to call office. Dr Long wants to see patient in office This week on Sunday or next week on Sunday Follow up ER for bilateral PE STERED RESPIRATORY TECHNICIAN documented in this encounter Plan of Treatment Not on file documented as of this encounter Visit Diagnoses Not on filedocumented in this encounter Care Teams Earth Burner Relationship Specialty Start Date End Date Francisco Long MD PCP - General 02/23/17 05/15/22 Neil Ag MD PhD [address] [place] [address] Radiation Oncologist Radiation Oncology 12/17/18 [place] [address] [address] [facility] [address] [place] [address] Referring Physician General Surgery 12/17/18 [place] [address] [address] [facility] [address] [place] [address] Medical Oncologist/Senior Ruby Developer Medical Oncology 12/17/18 Marleni Chiu MA [address] [place] [address] [address] [place] [address] ACO Care Manager Analysis 12/04/19 12/04/19 documented as of this encounter
--- OUTSIDE RECORDS SUMMARY | 2024-11-16 15:39 | XMS_ITS | Encounter Summary ---
Author Organization [facility] Medical Group Address [address] [facility] [address] [place] [address] Care Team Providers Care Soup Person Name Role Phone Francisco Long MD Primary Care Provider Neil Ag MD PhD Unavailable Ita Vazquez MD Unavailable Caron Mohan MD Unavailable Marleni Chiu MA Unavailable Encounter Details Date Type Department Care Team (Late st Contact Info) Description 12/01/2019 Orders Only [facility] 2 [facility] [address] [place] [address] Francisco Long MD [address] [place] [address] [address] [place] [address] Shortness of breath (Primary Dx) [...] on file Legal Sex Female 12:21 PM EXHIBIT DESIGNER Gender Identity Not on file Sexual Orientation Not on file documented as of this encounter Plan of Treatment Not on file documented as of this encounter Visit Diagnoses Diagnosis Shortness of breath- Primary documented in this encounter Care Teams Soup Person Relationship Specialty Start Date End Date Francisco Long MD PCP - General 02/23/17 05/15/22 Neil Ag MD PhD 6 [place] [address] Radiation Oncologist Radiation Oncology 12/17/18 [place] [address] [address] [facility] [address] [place], [place] [id number] Referring Physician General Surgery 12/17/18 [place] [address] [facility] 120 [place], [place] [id number] Medical Oncologist/Hot Packer Medical Oncology 12/17/18 Marleni Chiu MA [address] [place] [address] [address] [place] [address] ACO Care Group Home Manager 12/04/19 12/04/19 documented as of this encounter
--- OUTSIDE RECORDS SUMMARY | 2024-11-16 15:39 | XMS_ITS | Encounter Summary ---
Author Organization [facility] Medical Group Address [address] [facility] [address] [place] [address] Care Team Providers Care Furnace Helper Name Role Phone Francisco Long MD Primary Care Provider Neil Ag MD PhD Unavailable [phone] Ita Vazquez MD Unavailable Caron Mohan MD Unavailable Encounter Details Date Type Department Care Team (Late st Contact Info) Description 01/02/2020 Telephone [place] [facility] 2 [facility] [address] [place] [address] Francisco Long MD [address] [facility] [address] [place] [address] Social History Tobacco Use Types [...] on file Legal Sex Female 12:21 PM DISEASE AND INSECT CONTROL BOSS Gender Identity Not on file Sexual Orientation Not on file documented as of this encounter Miscellaneous Notes * Telephone Encounter - Thalia Wolff CLT - 01/02/2020 2:21 PM CST Lab order recd ASE AND INSECT CONTROL BOSS * Telephone Encounter - Anita White MA - 01/02/2020 1:42 PM CST Patient aware Sent to lab appt made ASE AND INSECT CONTROL BOSS * Telephone Encounter - Anita White MA - 01/02/2020 1:40 PM CST ----- Message from Francisco Long MD sent at 01/02/2020 1:27 PM DISEASE AND INSECT CONTROL BOSS ----- I talked to the patient on [...] to be done next Sunday 1:00 p.m. ASE AND INSECT CONTROL BOSS documented in this encounter Plan of Treatment Not on file documented as of this encounter Visit Diagnoses Not on filedocumented in this encounter Care Teams Furnace Helper Relationship Specialty Start Date End Date Francisco Long MD PCP - General 02/23/17 05/15/22 Neil Ag MD PhD [address] [place] [address] Radiation Oncologist Radiation Oncology 12/17/18 [place] [address] [address] [facility] [address] [place] [id number] Referring Physician General Surgery 12/17/18 [place] [address] [address] [facility] [address] [place] [address] Medical Oncologist/Refinery Operator Coking Medical Oncology 12/17/18 documented as of this encounter
--- OUTSIDE RECORDS SUMMARY | 2024-11-16 15:39 | XMS_ITS | Encounter Summary ---
Author Organization [facility] Medical Group Address [address] [facility] [address] [place] [address] Care Team Providers Care Burial Needs Salesperson Name Role Phone Francisco Long MD Primary Care Provider Neil Ag MD PhD Unavailable [phone] Ita Vazquez MD Unavailable Caron Mohan MD Unavailable [phone] Encounter Details Date Type Department Care Team (Late st Contact Info) Description 01/05/2020 Telephone [place] [facility] [address] [facility] [address] [place] [address] Francisco Long MD [address] [facility] [address] [place] [address] Social History Tobacco Use Types [...] on file Legal Sex Female 12:21 PM DELIVERY DRIVER Gender Identity Not on file Sexual Orientation Not on file documented as of this encounter Miscellaneous Notes * Telephone Encounter - Latoya Cotton MA - 01/05/2020 10:36 AM DELIVERY DRIVER Pt aware VERY DRIVER * Telephone Encounter - Francisco Long MD - 01/05/2020 10:32 AM CST Okay get to ER right away VERY DRIVER * Telephone Encounter - Cricket Knowles - 01/05/2020 10:31 AM CST Pt called stating her is getting ready to take her to [facility] ER because she cannot catch her breath. VERY DRIVER * Telephone Encounter - Latoya Cotton MA - 01/05/2020 8:43 AM DELIVERY DRIVER jr VERY DRIVER * Telephone Encounter - Cricket Knowles - [...] about there being a blockage. Please advise. VERY DRIVER documented in this encounter Plan of Treatment Not on file documented as of this encounter Visit Diagnoses Not on filedocumented in this encounter Care Teams Burial Needs Salesperson Relationship Specialty Start Date End Date Francisco Long MD PCP - General 02/23/17 05/15/22 Neil Ag MD PhD 6 [place] [address] Radiation Oncologist Radiation Oncology 12/17/18 [place] [address] [address] [facility] 120 [facility] [place] [id number] Referring Physician General Surgery 12/17/18 [place] [address] [address] [facility] 120 [place] [address] Medical Oncologist/Lamination Spinner Medical Oncology 12/17/18 documented as of this encounter
--- OUTSIDE RECORDS SUMMARY | 2024-11-16 15:39 | XMS_ITS | Encounter Summary ---
Author Organization [facility] Medical Group Address [address] [facility] [address] [place] [address] Care Team Providers Care Night Clerk Name Role Phone Francisco Long MD Primary Care Provider Neil Ag MD PhD Unavailable [phone] Ita Vazquez MD Unavailable Caron Mohan MD Unavailable Encounter Details Date Type Department Care Team (Late st Contact Info) Description 01/01/2020 Orders Only [place] [facility] 2 [facility] [address] [place] [address] Francisco Long MD [address] [place] [address] 220 [place] [address] Social History Tobacco Use Types [...] on file Legal Sex Female 12:21 PM NEGATIVE CLEANER Gender Identity Not on file Sexual Orientation Not on file documented as of this encounter Progress Notes * rFancisco Long MD - 01/01/2020 11:59 PM CST [...] to be done next Sunday 1:00 p.m. TIVE CLEANER documented in this encounter Plan of Treatment Not on file documented as of this encounter Procedures Procedure Name Priority Date/Time Associated Diagnosis Comments FACTOR V(LEIDEN) MUTATION ANALYSIS W/RFL HR2 MUT Routine 01/01/2020 11:15 AM NEGATIVE CLEANER TEST AUTHORIZATION Routine 01/01/2020 11 :15 AM NEGATIVE CLEANER PROTEIN C AND S ACTIVITY W/REFLEX TO ANTIGEN Routine 01/01/2020 11:15 AM NEGATIVE CLEANER 1911A>G MUTATION Routine 01/01/2020 11:1 5 AM NEGATIVE CLEANER IRON PROFILE W/ IBC Routine 01/01/2020 1 1:15 AM NEGATIVE CLEANER CBC WITH AUTO DIFFERENTIAL Routine 01/01/2020 11:15 AM NEGATIVE CLEANER FERRITIN Routine 01/01/2020 11:15 AM NEGATIVE CLEANER COMPREHENSIVE METABOLIC PANEL Routine 01/01/2020 11:15 AM NEGATIVE CLEANER documented in this encounter Results * 1911A>G MUTATION (01/01/2020 11:15 AM NEGATIVE CLEANER) [facility] Signature 72462i>G mutation analysis SEE NOTE [facility] Comment: 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 This genotype, when combined with the 78281W>A variant, or in the presence of increased levels of prothrombin, is associated with an increased risk for thrombophilia. This risk is increased further in the presence of oral contraceptive therapy, hormone replacement therapy and . ?? Laboratory results and submitted clinical information reviewed by Sherlyn Garcia, Ph.D., [facility], [facility]. DETAILED ASSAY INFORMATION A recently described variant in the Factor II (FII/Prothrombin) gene, 65606T>G, leads to an increased risk for thrombosis when observed in conjunction with the known 29787 G>A FII variant. One study observed an increased odds ratio (OR) of 5.86 in carriers of both the 21868E>A and 89115M>G variants compared to 3.34 in 81866J>A/39821D carriers (Br J Haem 2002. 118:610-614). The 67261 A>G variant is detected by polymerase chain [...] of these results, please contact your local [employer] genetic counselor or call [phone] ([phone]). This test is performed pursuant to a license agreement with [employer]. This test was developed and its analytical performance characteristics have been determined by [employer] [facility]. It has not been cleared or approved by FDA. This assay has been validated pursuant to the CLIA regulations and is used for clinical purposes. 01/01/2020 11:1 5 AM NEGATIVE CLEANER 01/01/2020 11:19 AM NEGATIVE CLEANER Narrative Resulting Agency Comment Performing Organization Information: ?Site ID: [id number] ?Name: [facility], ?Address: [address] [place] [address] ?Director: Ashley Mir MD,PhD,BEVERLEY us Francisco Long MD LAB GENETIC TESTING Final Resu lt [facility] [place], [place] * TEST AUTHORIZATION (01/01/2020 11:15 AM NEGATIVE CLEANER) Test name 97006I>G MUTATION [facility] [place] TEST CODE: [id number] [facility] [place] CLIENT CONTACT: TIFFANY GE DRAKE [facility] [place] Report Always Message Signature [facility] [place] Comment: The laboratory testing on this patient was verbally requested or confirmed by the ordering physician or his or her authorized client service representative after contact with an employee of [employer]. Federal regulations require that we maintain on file written authorization for all laboratory testing. ??Accordingly we are asking that the ordering physician or his or her authorized client service representative sign a copy of this report and promptly return it to the director client services. Signature: Comment [facility] [place] Comment: Fax number: [phone] 01/01/2020 11:1 5 AM NEGATIVE CLEANER 01/01/2020 11:19 AM NEGATIVE CLEANER Narrative Resulting Agency Comment Performing Organization Information: ?Site ID: [place] ?Name: [facility] ?Address: [address] [address] [id number] ?Director: Alex Garcia D.O., MPH us Francisco Long MD LAB BLOOD ORDERABLES Final Res ult [facility] [place] * PROTEIN C AND S ACTIVITY W/REFLEX TO ANTIGEN (01/01/2020 11:15 AM NEGATIVE CLEANER) Acyclcarnitine , interp see note [facility] Comment:Negative for Protein C and Protein S Deficiency. Protein C activity 167 70 - 180 % [facility] Comment: Units: % of normal Protein S, activity 94 60 - 140 % [facility] 01/01/2020 11:1 5 AM NEGATIVE CLEANER 01/01/2020 11:19 AM NEGATIVE CLEANER Narrative Resulting Agency Comment Performing Organization Information: ?Site ID: [facility] ?Name: [employer] ?Address: [address] [place] [address] [place], [place] ?Director: Yusuf Powell M.D.,PhD Francisco Long MD LAB BLOOD ORDERABLES Final Res ult [facility] [place], [place] * FACTOR V(LEIDEN) MUTATION ANALYSIS W/RFL HR2 MUT (01/01/2020 11:15 AM NEGATIVE CLEANER) Pathologist [facility] Factor v (leiden) mutation SEE NOTE [facility] [...] results monitored by Carla Dash MD, PhD, [facility], [facility]. MUTATION ANALYSIS: The Factor V Leiden (R506Q) mutation [NM 574785.2: c.1601G>A (p.R534Q)] in the Factor V gene [...] analytical performance characteristics have been determined by [employer] [facility]. It has not been cleared or approved by FDA. This assay has been validated pursuant to the CLIA regulations and is used for clinical purposes. Health care providers, please contact your local [employer]' genetic counselor or call [phone] ([phone]) for assistance with interpretation of these results. 01/01/2020 11:1 5 AM NEGATIVE CLEANER 01/01/2020 11:19 AM NEGATIVE CLEANER Narrative Resulting Agency Comment Performing Organization Information: ?Site ID: ?Name: [employer], ?Address: [id number] [place] [address] ?Director: Ashley Mir MD,PhD,BEVERLEY Francisco Long MD LAB GENETIC TESTING Final Resu lt [facility] [place], [place] * (ABNORMAL) Comprehensive metabolic panel (01/01/2020 11:15 AM NEGATIVE CLEANER) Glucose 178(H) 65 - 99 mg/dL [facility] [...] approximately 13% higher for people identified as -Guinean. eGFR NON-AFR. CONG[place]ESE 75 > OR = 60 mL/min/1 .73m2 [...] DI[facility] [place] 01/01/2020 11:1 5 AM NEGATIVE CLEANER 01/01/2020 11:19 AM NEGATIVE CLEANER Narrative Resulting Agency Comment Performing Organization Information: ?Site ID: [place] ?Name: [facility] ?Address: [address] [place] [address] [place] [address] ?Director: Alex Garcia D.O., MPH us Francisco Long MD LAB BLOOD ORDERABLES Final Res ult [facility] [place] * (ABNORMAL) Iron profile w/ IBC (01/01/2020 11:15 AM NEGATIVE CLEANER) Iron 386(H) 45 - 160 mcg/dL [facility] [place] TIBC 458(H) 250 - 450 mcg/dL (calc) [facility] [place] Iron saturation 84(H) 16 - 45 % (calc) [facility] [place] 01/01/2020 11:1 5 AM NEGATIVE CLEANER 01/01/2020 11:19 AM NEGATIVE CLEANER Narrative Resulting Agency Comment Performing Organization Information: ?Site ID: YENNY ?Name: [facility] ?Address: [facility] [place] [id number] ?Director: Alex Garcia D.O., MPH Francisco Long MD LAB BLOOD ORDERABLES Final Res ult Performing Organization Address [facility] Co de Phone Number [facility] [place] * (ABNORMAL) Ferritin (01/01/2020 11:15 AM NEGATIVE CLEANER) Pathologist [facility] Ferritin 13(L) 16 - 288 ng/mL [facility] [place] 01/01/2020 11:1 5 AM NEGATIVE CLEANER 01/01/2020 11:19 AM NEGATIVE CLEANER Narrative Resulting Agency Comment Performing Organization Information: ?Site ID: YENNY ?Name: [facility] ?Address: [facility] [place] [address] ?Director: Alex Garcia D.O., MPH Francisco Long MD LAB BLOOD ORDERABLES Final Res ult Performing Organization Address [facility] de Phone Number [facility] [place] * (ABNORMAL) CBC with auto differential (01/01/2020 11:15 AM NEGATIVE CLEANER) Pathologist [facility] WBC 6.5 3.8 - 10.8 Thousand/u L [...] DIAGNOSTIC [place] 01/01/2020 11:1 5 AM NEGATIVE CLEANER 01/01/2020 11:19 AM NEGATIVE CLEANER Narrative Resulting Agency Comment Performing Organization Information: ?Site ID: YENNY ?Name: [facility] ?Address: [address] [address] [id number] ?Director: Alex Garcia D.O., MPH Francisco Long MD LAB BLOOD ORDERABLES Final Res ult [facility] [place] documented in this encounter Visit Diagnoses Not on filedocumented in this encounter Care Teams Night Clerk Relationship Specialty Start Date End Date Francisco Long MD PCP - General 02/23/17 05/15/22 Neil Ag MD PhD [address] [place] [address] Radiation Oncologist Radiation Oncology 12/17/18 [place] [address] [place] [id number] Referring Physician General Surgery 12/17/18 [place] [address] [address] [place] [id number] Medical Oncologist/Gold Miner Medical Oncology 12/17/18 documented as of this encounter
--- OUTSIDE RECORDS SUMMARY | 2024-11-16 15:39 | XMS_ITS | Encounter Summary ---
Author Organization [facility] Medical Group Address [address] [facility] [address] [place] [address] Care Team Providers Care Printing Machine Operator Tape Rules Name Role Phone Francisco Long MD Primary Care Provider [phone] Neil Ag MD PhD Unavailable [phone] Ita Vazquez MD Unavailable Caron Mohan MD Unavailable Reason for Visit * Reason Comments Hospital Follow Up PE Encounter Details Date Type Department Care Team (Late st Contact Info) Description 12/09/2019 1:00 PM LOW EMISSION AUTOMOBILE DESIGNER Office Visit [place] [facility] 2 [facility] [address] [place] [address] Francisco Long MD [address] [place] [address] [address] [place] [address] Bilateral pulmonary embolism (CMS/HCC) (Primary [...] on file Legal Sex Female 12:21 PM LOW EMISSION AUTOMOBILE DESIGNER Gender Identity Not on file Sexual Orientation Not on file documented as of this encounter Last Filed Vital Signs Vital Sign Reading Time Taken Comments Blood Pressure 122/74 12/09/2019 12:51 PM LOW EMISSION AUTOMOBILE DESIGNER Pulse 79 12/09/2019 12:51 PM LOW EMISSION AUTOMOBILE DESIGNER Temperature 36.4 ??C (97.6 ??F) 12/09/2019 12:[address] Respiratory Rate 16 12/09/2019 12:51 PM LOW EMISSION AUTOMOBILE DESIGNER Oxygen Saturation - - Inhaled Oxygen Concentration - - Weight 83.9 kg (185 lb) 12/09/2019 12:51 PM LOW EMISSION AUTOMOBILE DESIGNER Height 170.2 cm (5' 7 ) 12/09/2019 12:51 PM LOW EMISSION AUTOMOBILE DESIGNER Body Mass Index 28.98 12/09/2019 12:51 PM LOW EMISSION AUTOMOBILE DESIGNER documented in this encounter Ordered Prescriptions Prescription [...] in agreement with the plan of care. EMISSION AUTOMOBILE DESIGNER documented in this encounter Plan of Treatment [...] documented as of this encounter Care Teams Printing Machine Operator Tape Rules Relationship Specialty Start Date End Date Francisco Long MD PCP - General 02/23/17 05/15/22 Neil Ag MD PhD [address] [place] [address] Radiation Oncologist Radiation Oncology 12/17/18 [place] [address] [address] [facility] [address] [place] [address] Referring Physician General Surgery 12/17/18 [place] [address] [address] [facility] [address] [place] [address] Medical Oncologist/Muck Hauler Medical Oncology 12/17/18 documented as of this encounter
--- OUTSIDE RECORDS SUMMARY | 2024-11-16 15:39 | XMS_ITS | Encounter Summary ---
Author Organization [facility] Healthcare Address [address] [place] [address] Care Team Providers Care Flight Dispatcher Name Role Phone Inez Long MD Primary Care Provider [phone] Neil Ag MD PhD Unavailable [phone] Ita Vazquez MD Unavailable Caron Mohan MD Unavailable Reason for Referral * Diagnostic Imaging (Routine) - Closed Specialty Diagnoses / Procedures Referred By Halima garcia Referred To Contact Diagnoses Pulmonary embolism, unspecified chronicity, unspecified pulmonary embolism type, unspecified whether acute cor pulmonale present (HCC) Procedures US Vein Duplex Lower Extremity Bilateral Complete Inez Long MD Phone: tel: fax: [address] [address] Referral ID Status Reason Start Date Expiration Date Visits Re quested Visits Authorized [id number] Closed 12/09/2019 06/19/2021 1 1 CLEANING MANAGER Reason for Visit * Diagnostic Imaging (Routine) - Closed Specialty Diagnoses / Procedures Referred By Halima garcia Referred To Contact Diagnoses Pulmonary embolism, unspecified chronicity, unspecified pulmonary embolism type, unspecified whether acute cor pulmonale present (HCC) Procedures US Vein Duplex Lower Extremity Bilateral Complete Inez Long MD Phone: tel: fax: [address] [phone] Referral ID Status Reason Start Date Expiration Date Visits Re quested Visits Authorized [id number] Closed 12/09/2019 06/19/2021 1 1 Encounter Details Date Type Department Care Team (Latest Contact Info) Description 12/11/2019 2:12 PM SEED CLEANING MANAGER - 12/11/2019 11:59 PM SEED CLEANING MANAGER Hospital Encounter [facility] [address] [place] [id number] Inez Long MD [address] [facility] [address] [place] [address] [place] [id number] Pulmonary embolism, unspecified chronicity, unspecified pulmonary embolism type, unspecified whether acute cor pulmonale present ([facility]) Discharge Disposition: Discharge to home or self [...] on file Legal Sex Female 12:21 PM SEED CLEANING MANAGER Gender Identity Not on file Sexual [...] shows no blood clots in the legs CLEANING MANAGER documented in this encounter Plan of Treatment Not on file documented as of this encounter Procedures Procedure Name Priority Date/Time Associated Diagnosis Comments US VEIN DUPLEX LOWER EXTREMITY BILATERAL COMPLETE Schedule Routine, Read Routine (OP Routine) 12/11/2019 3:05 PM SEED CLEANING MANAGER Pulmonary embolism, unspecified chronicity, unspecified pulmonary embolism type, unspecified whether acute cor pulmonale present ([facility]) documented in this encounter Results * US Vein Duplex Lower Extremity Bilateral Complete (12/11/2019 3:05 PM SEED CLEANING MANAGER) Anatomical Region Laterality Modality Vascular Bilateral Ultrasound 12/11/2019 4:04 PM SEED CLEANING MANAGER Addenda Addendum by Saqib Potter MD on 12/30/2019 4:06 PM SEED CLEANING MANAGER This addendum supersedes the initial report. Spectral Doppler sonographic evaluation not performed. Electronically signed by: Saqib Potter M.D. Impressions 12/11/2019 4:05 PM SEED CLEANING MANAGER Negative for lower extremity deep venous thrombosis. Electronically signed by: Saqib Potter M.D. Narrative 12/11/2019 4:05 PM SEED CLEANING MANAGER EXAMINATION: US VEIN DUPLEX LOWER EXTREMITY BILATERAL [...] (HCC) documented in this encounter Care Teams Flight Dispatcher Relationship Specialty Start Date End Date Inez Long MD PCP - General 02/23/17 05/15/22 Neil Ag MD PhD [address] [place] [id number] Radiation Oncologist Radiation Oncology 12/17/18 [place] [address] [facility] [address] [place] [phone] Referring Physician General Surgery 12/17/18 [place] [address] [facility] [address] [place] [phone] Medical Oncologist/Lime Sludge Kiln Operator Medical Oncology 12/17/18 documented as of this encounter
--- OUTSIDE RECORDS SUMMARY | 2024-11-16 15:39 | XMS_ITS | Encounter Summary ---
Author Organization [facility] Facility Care Team Providers Care Product Demonstrator Name Role Phone Francisco Long MD Primary Care Provider [phone] Neil Ag MD PhD Unavailable [phone] Ita Vazquez MD Unavailable Caron Mohan MD [...] file Legal Sex Female 12:21 PM SUPPLY AIDE Gender Identity Not on file Sexual Orientation Not on file documented as of this encounter Plan of Treatment Not on file documented as of this encounter Visit Diagnoses Not on filedocumented in this encounter Care Teams Product Demonstrator Relationship Specialty Start Date End Date Francisco Long MD PCP - General 02/23/17 05/15/22 Neil Ag MD PhD [address] [place] [address] Radiation Oncologist Radiation Oncology 12/17/18 [place] [address] [address] Referring Physician General Surgery 12/17/18 [place] [address] [address] [address] Medical Oncologist/Senior Compensation Analyst Medical Oncology 12/17/18 documented as of this encounter
--- OUTSIDE RECORDS SUMMARY | 2024-11-16 15:39 | XMS_ITS | Encounter Summary ---
Author Organization [facility] Facility Care Team Providers Care Spin Table Operator Name Role Phone Francisco Long MD Primary Care Provider [phone] Neil Ag MD PhD Unavailable [phone] Ita Vazquez MD Unavailable Caron Mohan MD [...] on file Legal Sex Female 12:21 PM JUTE BAG SEWER Gender Identity Not on file Sexual Orientation Not on file documented as of this encounter Plan of Treatment Not on file documented as of this encounter Visit Diagnoses Not on filedocumented in this encounter Care Teams Spin Table Operator Relationship Specialty Start Date End Date Francisco Long MD PCP - General 02/23/17 05/15/22 Neil Ag MD PhD [address] [place] [address] Radiation Oncologist Radiation Oncology 12/17/18 [place] [address] [address] [place] [address] Referring Physician General Surgery 12/17/18 [place] [address] [address] [place] [address] Medical Oncologist/Moss Picker Medical Oncology 12/17/18 documented as of this encounter
--- OUTSIDE RECORDS SUMMARY | 2024-11-16 15:39 | XMS_ITS | Encounter Summary ---
Author Organization [facility] Healthcare Address [address] [place] [address] Care Team Providers Care Manager Project Name Role Phone Inez Long MD Primary Care Provider [phone] Neil Ag MD PhD Unavailable [phone] Ita Vazquez MD Unavailable Caron Mohan MD Unavailable Reason for Visit * Diagnostic Imaging (Emergency) - Closed Specialty Diagnoses / Procedures Referred By Contlaura t Referred To Contact Radiology Diagnoses Abnormal blood gases Cough Pulmonary embolism, unspecified chronicity, unspecified pulmonary embolism type, unspecified whether acute cor pulmonale present (HCC) Procedures CT Chest PE W Contrast CT Chest W Contrast Inez Long MD Phone: tel: fax: [address] [address] Referral ID Status Reason Start Date Expiration Date Visits Re quested Visits Authorized [id number] Closed 12/02/2019 06/12/2021 1 1 Encounter Details Date Type Department Care Team (Latest Contact Info) Description 12/02/2019 11:00 AM CUSTOMER COUNTER REPRESENTATIVE - 12/02/2019 12:49 PM CUSTOMER COUNTER REPRESENTATIVE Hospital Encounter [facility] [address] [place] [id number] Inez Long MD [address] [place] [id number] Abnormal blood gases; Cough; Pulmonary embolism, unspecified chronicity, unspecified pulmonary embolism type, unspecified whether acute cor pulmonale present ([facility]) Discharge Disposition: Discharge to home [...] file Legal Sex Female 12:21 PM CUSTOMER COUNTER REPRESENTATIVE Gender Identity Not on file Sexual [...] PE W CONTRAST STAT 12/02/2019 12:20 PM CUSTOMER COUNTER REPRESENTATIVE Abnormal blood gases Cough Pulmonary embolism, unspecified chronicity, unspecified pulmonary embolism type, unspecified whether acute cor pulmonale present ([facility]) documented in this encounter Results * CT Chest PE W Contrast (12/02/2019 12:20 PM CUSTOMER COUNTER REPRESENTATIVE) Anatomical Region Laterality Modality Body N/A Computed Tomogra phy 12/02/2019 12:2 3 PM CUSTOMER COUNTER REPRESENTATIVE Addenda Addendum by Saqib Potter MD on 12/05/2019 10:18 AM CUSTOMER COUNTER REPRESENTATIVE This addendum supersedes the initial report dated 12/02/2019. IMPRESSION: 3. ??There is a left breast mass which may correspond with the cyst reported on ultrasound from 09/11/2018 but should be further evaluated mammographically. Electronically signed by: Saqib Potter M.D. Impressions 12/02/2019 12:37 PM CUSTOMER COUNTER REPRESENTATIVE 1. ??Bilateral pulmonary embolus with moderate clot burden. Borderline right heart strain. ??No pulmonary infarct. 2. ??Additional findings as above. Electronically signed by: Saqib Potter M.D. Narrative 12/02/2019 12:37 PM CUSTOMER COUNTER REPRESENTATIVE EXAMINATION: CT CHEST PE W CONTRAST ORDERING [...] been communicated to ordering provider via the [email or web address] Critical Result tracking system. Status of follow up communication is recorded in [email or web address]. Procedure Note Saqib Potter MD - 12/02/2019 [...] been communicated to ordering provider via the [email or web address] Critical Result tracking system. Status of follow up communication is recorded in [email or web address]. IMPRESSION: 1. Bilateral pulmonary embolus with moderate [...] For 1 dose Given 12/02/2019 12:10 PM CUSTOMER COUNTER REPRESENTATIVE 125 mL documented in this encounter Orders Medications Ordered That Álvaro ht Not Have Been Administered Count Last Ordered Date First Ordered Date ioversol (OPTIRAY 350) syrin ge syringe 125 mL 1 12/02/2019 documented in this encounter Care Teams Manager Project Relationship Specialty Start Date End Date Inez Long MD PCP - General 02/23/17 05/15/22 Neil Ag MD PhD [address] [place] [address] Radiation Oncologist Radiation Oncology 12/17/18 [place] [id number] [address] [facility] [address] [place], [place] [id number] Referring Physician General Surgery 12/17/18 [place] [address] [facility] [address] [place], [place] [phone] Medical Oncologist/Real Estate Branch Manager Medical Oncology 12/17/18 documented as of this encounter
--- OUTSIDE RECORDS SUMMARY | 2024-11-16 15:39 | XMS_ITS | Encounter Summary ---
Author Organization [facility] Healthcare Address [address] [place] [address] Care Team Providers Care Fire Prevention Officer Name Role Phone Francisco Long MD Primary Care Provider [phone] Neil Ag MD PhD Unavailable [phone] Ita Vazquez MD Unavailable Caron Mohan MD Unavailable Encounter Details Date Type Department Care Team (Late st Contact Info) Description 12/01/2019 3:30 PM CADMIUM BURNER [address] [address] Social History Tobacco Use Types Packs/Day Years Used Date Smoking Tobacco: Never Smokeless Tobacco: Never Alcohol Use Standard Drinks/Week Comments No 0 (1 standard drink = 0.6 oz pur e alcohol) PHQ-2 Answer Date Recorded PHQ-2 Score 0 07/17/2019 Comments Unknown Sex and Gender Information Value Date Recorded Sex Assigned at Not on file Legal Sex Female 12:21 PM CADMIUM BURNER Gender Identity Not on file Sexual Orientation Not on file documented as of this encounter Plan of Treatment Not on file documented as of this encounter Visit Diagnoses Not on filedocumented in this encounter Care Teams Fire Prevention Officer Relationship Specialty Start Date End Date Francisco Long MD PCP - General 02/23/17 05/15/22 Neil Ag MD PhD [address] [place] [address] Radiation Oncologist Radiation Oncology 12/17/18 [place] [address] [facility] [address] [place] [phone] Referring Physician General Surgery 12/17/18 [place] [address] [facility] [address] [place] [address] Medical Oncologist/Manager Biologics Medical Oncology 12/17/18 documented as of this encounter
--- OUTSIDE RECORDS SUMMARY | 2024-11-16 15:39 | XMS_ITS | Encounter Summary ---
Author Organization [facility] Healthcare Address [address] [place] [address] Care Team Providers Care Chief Nurse Name Role Phone Inez Long MD Primary Care Provider Neil Ag MD PhD Unavailable [phone] Ita Vazquez MD Unavailable Caron Mohan MD Unavailable [phone] Pebbles Felton MD Unavailable [phone] Reason for Visit * Reason Comments Shortness of Breath Encounter Details Date Type Department Care Team (Latest Contact Info) Description 01/05/2020 1:34 PM CLASSIFICATION CONTROL CLERK - 01/07/2020 2:30 PM CLASSIFICATION CONTROL CLERK Hospital Encounter [facility] Acute Medicine [address] [place] [address] Ana Stubbs MD [address] [facility] [address] [place] [address] Jacklyn Spear MD [address] [facility] [address] [place] [address] Sudarshan Jones Jr., MD [address] [place] [address] [place] [address] Iron deficiency anemia due to chronic blood [...] on file Legal Sex Female 12:21 PM CLASSIFICATION CONTROL CLERK Gender Identity Not on file Sexual Orientation Not on file documented as of this encounter Last Filed Vital Signs Vital Sign Reading Time Taken Comments Blood Pressure 152/71 01/07/2020 11:13 AM CLASSIFICATION CONTROL CLERK Pulse 71 01/07/2020 11:13 AM CLASSIFICATION CONTROL CLERK Temperature 36.8 ??C (98.2 ??F) 01/07/2020 11:[address] Respiratory Rate 18 01/07/2020 11:13 AM CLASSIFICATION CONTROL CLERK Oxygen Saturation 96% 01/07/2020 11:13 AM CLASSIFICATION CONTROL CLERK Inhaled Oxygen Concentration - - Weight 86 kg (189 lb 9.5 oz) 01/05/2020 6:10 PM CLASSIFICATION CONTROL CLERK Height 170.2 cm (5' 7.01 ) 01/06/2020 4:38 AM CS T Body Mass Index 29.69 01/05/2020 6:10 PM CLASSIFICATION CONTROL CLERK documented in this encounter Discharge Diagnoses Diagnosis [...] STATUS [ER+] Estrogen receptor positive status [ER+] 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 Long-term (current) use of anticoagulants shelter (current) use of aromatase inhibitors - 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 (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) USE OF AROMATASE INHIBITORS Personal history of malignant neoplasm of other parts of uterus - PERSONAL HISTORY OF MALIGNANT NEOPLASM OF OTHER PARTS OF UTERUS Acquired absence of both cervix and uterus - ACQUIRED ABSENCE OF BOTH CERVIX AND UTERUS Presence of right artificial knee joint - PRESENCE OF RIGHT ARTIFICIAL KNEE JOINT 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 - OTHER 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 (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) DRUG THERAPY Prediabetes - PREDIABETES Other [...] Jr., MD - 01/07/2020 12:25 PM CST [place], [place] Hospitalist Discharge Summary Patient Name: Jolene Gordon Patient : 1945 Room/Bed: [id number]/[id number] Admission Date/Time: 01/05/2020 1:34 PM Discharge date: [...] she can get in touch with her community organization director because Protonix can increase serum levels of [...] Range Crossmatch Compatible Unit number for crossmatch [id number] Crossmatch Compatible Unit number for crossmatch [id number] Prepare RBC Collection Time: 01/05/20 6:43 PM Result Value Ref Range Unit Number [id number] Product code [id number] Blood Expiration Date 076678028602 Product Blood Type (for scanning) 5100 Product [...] requested 1 Units requested Ready Unit Number [id number] Product code [id number] Blood Expiration Date 422373762229 Product Blood Type (for scanning) 7300 Product [...] months. TECHNIQUE: [facility] COMPARISON: Chest x-ray 12/02/2019 FINDINGS: [...] Your Medications These medications were sent to [id number] - [place] [address] AT [place] [address], [facility] [id number] ?? pantoprazole DR 40 mg EC tablet Patient Instructions: Activity: activity as tolerated Diet: regular diet Disposition: home Follow-up Contact Information for Follow-ups Pebbles Felton MD Specialty: Gastroenterology, Internal Medicine Relationship: Consulting Physician Rajendra [facility] [address] [facility] [address] Next Steps: Follow up Instructions: Please call [...] and put the name in the comments. Ienz Long MD Specialty: Internal Medicine Relationship: [facility]CP - [facility] Attributed PCP [address] [place] [place] [address] Next Steps: Follow up Instructions: Please call [...] Jones Jr., MD Internal Medicine - Hospitalist [facility] - Adult Hospitalist Service 01/07/2020 12:25 PM Cc: Inez Long MD SIFICATION CONTROL CLERK documented in this encounter Discharge Instructions * Discharge Instructions* Mary Aparicio RN - 01/07/2020 1:30 PM CLASSIFICATION CONTROL CLERK Anemia WHAT YOU NEED TO KNOW: [...] ask them during your visits. ?? 2017 [employer] Information is for End User's use only and may not be sold, redistributed or otherwise used for commercial purposes. All illustrations and images included in CareNotes?? are the copyrighted property of [employer]. or [employer]. The above information is an educational administration teacher only. It is not intended as medical advice for individual conditions or treatments. Talk to your doctor, nurse or pharmacist before following any medical regimen to see if it is safe and effective for you. SIFICATION CONTROL CLERK documented in this encounter Medications at [...] of suspected active GI bleed, SCDs ordered SIFICATION CONTROL CLERK * Carol Chan RN - 01/06/2020 [...] steps Medication management (self) Financial Resource Income Prison/Pension Financial assistance (na) Payor Source Medicare;Supplemental Potential Discharge Needs Home Health (na) Anticipated discharge level of care Private residence Pt/Family agrees with Anticipated Level of Care Yes Patient expects to be discharged to: Private residence Community Resources (na) Dialysis No Behavioral Health Services No SIFICATION CONTROL CLERK * Pebbles Felton MD - 01/06/2020 [...] Range Crossmatch Compatible Unit number for crossmatch [id number] Prepare RBC Collection Time: 01/05/20 6:43 PM Result Value Ref Range Unit Number [id number] Product code [id number] Blood Expiration Date Product Blood Type (for [...] Can stop intravenous fluids. Pebbles Felton MD SIFICATION CONTROL CLERK * Melisa Boss, RD - 01/06/2020 [...] status Evidenced by: Physical finding ?? Interventions: [place] diet preferences within the limits of nutrition [...] 50 mL/hr, Last Rate: 50 mL/hr (01/05/20 3354) sodium chloride 0.9%, 0-250 mL Sodium Date [...] Nutrition Follow-Up : 01/09/[address],LDN SIFICATION CONTROL CLERK documented in this encounter H&P Notes [...] Range Crossmatch Compatible Unit number for crossmatch [id number] Prepare RBC Collection Time: 01/05/20 6:43 PM Result Value Ref Range Unit Number [id number] Product code [id number] Blood Expiration Date Product Blood Type (for [...] months. TECHNIQUE: Frontal and lateral radiographs of [facility]. COMPARISON: Chest x-ray 12/02/2019 FINDINGS: LUNGS/PLEURA: There [...] Making Complexity: Moderate Time spent 52 minutes SIFICATION CONTROL CLERK documented in this encounter Procedure Notes * Pebbles Felton MD - 01/07/2020 9:12 AM CSTAssociated Order(s): COLONOSCOPY [facility] Patient Name: Jolene Gordon Procedure Date: 01/07/2020 9:12 AM Date of : 1945 Admit Type: Inpatient Age: 74 Gender: Female Attending MD: Pebbles Felton M.D. Room: [facility] ENDOSCOPY ROOM 1 Note Status: Finalized [...] under direct vision. The Pediatric Colonoscope PCF-H190L [id number] was introduced through the anus and advanced [...] 9:12 AM Procedure Code(s): --- Professional --- 83439, Colonoscopy, flexible; with removal of tumor(s), polyp(s), or other lesion(s) by snare technique 99480, 59, Colonoscopy, flexible; with biopsy, single or multiple Diagnosis Code(s): --- Professional --- K64.8, Other hemorrhoids D12.0, Benign neoplasm of cecum D12.4, Benign neoplasm of descending colon R19.5, Other fecal abnormalities D50.9, Iron deficiency anemia, unspecified K57.30, Diverticulosis of large intestine without perforation or abscess without bleeding CPT copyright 2017 [employer]. All rights reserved. The codes documented in this report are preliminary and upon certified procedural coder review may be revised to meet current compliance requirements. Recognized by the [employer] for promoting quality in endoscopy SIFICATION CONTROL CLERK * Pebbles Felton MD - 01/07/2020 9:11 AM CSTAssociated Order(s): EGD [facility] Patient Name: Jolene Gordon Procedure Date: 01/07/2020 9:11 AM Date of : 1945 Admit Type: Inpatient Age: 74 Gender: Female Attending MD: Pebbles Felton M.D. Room: [facility] ENDOSCOPY ROOM 1 Note Status: Finalized [...] passed under direct vision. The Endoscope GIF-H190 [id number] was introduced through the mouth, and advanced [...] 9:11 AM Procedure Code(s): --- Professional --- 69839, Esophagogastroduodenoscopy, flexible, transoral; with biopsy, single or multiple Diagnosis Code(s): --- Professional --- K29.70, Gastritis, unspecified, without bleeding K44.9, Diaphragmatic hernia without obstruction or gangrene D50.9, Iron deficiency anemia, unspecified R19.5, Other fecal abnormalities CPT copyright 2017 [employer]. All rights reserved. The codes documented in this report are preliminary and upon certified procedural coder review may be revised to meet current compliance requirements. Recognized by the [place] for promoting quality in endoscopy SIFICATION CONTROL CLERK documented in this encounter Consult Notes [...] evaluation. 6. Follow-up progress. Pebbles Felton MD SIFICATION CONTROL CLERK documented in this encounter Nursing Notes * Lupe Cristina RN - 01/07/2020 2:29 PM CST Discharge instructions discussed. Verbalizes understanding of all instructions as written. Transported to [facility] in stable condition with all personal belongings. Discharged [facility] to [facility] for transport. SIFICATION CONTROL CLERK documented in this encounter ED Notes [...] review shows that patient was admitted into [facility] on 12/02/19 for bilateral pulmonary embolism. TTE [...] Inez Long MD. History provided by: Patient educational sign language interpreter used: No Patient History Patient Active [...] mammogram, encounter for 1945 ??? Uterine cancer ([facility]) 04/2018 Past Surgical History: Procedure Laterality Date [...] time. Psychiatric: Mood and Affect: Mood normal. [facility] ECG 12 lead Date/Time: 01/05/2020 1:48 PM [...] CROSSMATCH Crossmatch Compatible Unit number for crossmatch [id number] CBC WITH AUTO DIFFERENTIAL PREPARE RBC Units requested 1 Units requested Ready Narrative: Are special requirements needed? (all products are leukoreduced)->No PREPARE RBC Unit Number [id number] Product code [id number] Blood Expiration Date Product Blood Type (for [...] GI consult. Discussed with: Admitting physician and Certified Detention Deputy They agree with : Admission ED Course [...] words and actions. Ana Stubbs MD 01/05/202026 SIFICATION CONTROL CLERK * Starr Enriquez, RN - 01/05/2020 12:03 PM CST Pt to the ED with complaints of SOB and fatigue, states she had blood clots in both lungs recently.Pt able to speak complete sentences with no difficulty. SIFICATION CONTROL CLERK documented in this encounter Miscellaneous Notes [...] in room. Tolerated EGD/Colonoscopy well. Discharge pending. SIFICATION CONTROL CLERK * Perioperative Nursing Note - Anita Badillo, TAO - 01/07/2020 10:[address] Felton spoke with Patient and regarding today's procedure. He recommends following upin 3 years for another colon screening and to follow up with Dr Long for regular labs to monitor hemoglobin levels. SIFICATION CONTROL CLERK * Plan of Care - Marianne [...] Goal: Pain level will decrease Outcome: Progressing SIFICATION CONTROL CLERK * Plan of Leyda - Doris [...] or discomfort. Tolerating clear liquids without nausea SIFICATION CONTROL CLERK * Assessment & Plan Note - Neeru Gonzalez MD - 01/06/2020 5:45 AM CSTAssociated Problem(s): Malignant neoplasm of upper-inner quadrant of left breast in female, estrogen receptor positive (HCC) Hold letrozole for now as it increases risk for thromboembolism. SIFICATION CONTROL CLERK * Assessment & Plan Note - [...] to monitor. Will hold anticoagulation for now. SIFICATION CONTROL CLERK SIFICATION CONTROL CLERK * Assessment & Plan Note - Neeru Gonzalez MD - 01/06/2020 5:42 AM CSTAssociated Problem(s): 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 rheumatoid factor (CMS/HCC) (HCC) Patient is on methotrexate which she takes on Sunday. SIFICATION CONTROL CLERK * Assessment & Plan Note - Neeru Gonzalez MD - 01/06/2020 5:42 AM CSTAssociated Problem(s): Essential hypertension Currently normotensive. Continue carvedilol with hold parameters. Holding losartan and hydrochlorothiazide for now. SIFICATION CONTROL CLERK * Plan of Care - Marianne [...] stable neurologic state will improve Outcome: Progressing SIFICATION CONTROL CLERK * Plan of Care - Smith Guzman [...] activity as tolerated. Summary: Care plan initiated SIFICATION CONTROL CLERK documented in this encounter Plan of Treatment Not on file documented as of this encounter Procedures Procedure Name Priority Date/Time Associated Diagnosis Comments SURGICAL PATHOLOGY STAT 01/07/2020 11:54 AM CLASSIFICATION CONTROL CLERK Iron deficiency anemia due to chronic blood loss Gastrointestina l hemorrhage associated with anorectal source H. PYLORI UREASE SCREEN (RADHA TEST) STAT 01/07/2020 9:40 AM CLASSIFICATION CONTROL CLERK ENDO ADD ON COLON BIOPSY 020 9:19 AM CLASSIFICATION CONTROL CLERK Iron deficiency anemia due to chronic blood loss Gastrointestina l hemorrhage associated with anorectal source ESOPHAGOGASTRODUODENOSCOPY BIOPSY 01/07/2020 9:19 AM CLASSIFICATION CONTROL CLERK Iron deficiency anemia due to chronic blood loss Gastrointestina l hemorrhage associated with anorectal source COLON REMOVAL SNARE 01/07/2020 9:19 AM CLASSIFICATION CONTROL CLERK Iron deficiency anemia due to chronic blood loss Gastrointestina l hemorrhage associated with anorectal source COLONOSCOPY 01/07/2020 9:12 AM CLASSIFICATION CONTROL CLERK EGD 01/07/2020 9:11 AM CLASSIFICATION CONTROL CLERK POCT GLUCOSE DEVICE Routine 01/07/2020 7:03 AM CLASSIFICATION CONTROL CLERK EGFR Routine 01/07/2020 3:25 AM CLASSIFICATION CONTROL CLERK CBC WITHOUT DIFFERENTIAL Routine 020 3:25 AM CLASSIFICATION CONTROL CLERK PHOSPHORUS Routine 01/07/2020 3:25 AM CLASSIFICATION CONTROL CLERK MAGNESIUM Routine 01/07/2020 3:25 AM CLASSIFICATION CONTROL CLERK LACTATE DEHYDROGENASE Routine 01/07/2020 3:25 AM CLASSIFICATION CONTROL CLERK BASIC METABOLIC PANEL Routine 01/07/2020 3:25 AM CLASSIFICATION CONTROL CLERK TRANSFUSE RED BLOOD CELLS Timed 2019 5:14 PM CLASSIFICATION CONTROL CLERK PREPARE RBC Timed 01/06/2020 4:16 PM CLASSIFICATION CONTROL CLERK DIFFERENTIAL AUTO Routine 01/06/2020 4:32 AM CLASSIFICATION CONTROL CLERK CBC WITH AUTO DIFFERENTIAL Routine 01/06 4:32 AM CLASSIFICATION CONTROL CLERK PREPARE RBC Timed 01/05/2020 7:00 PM CLASSIFICATION CONTROL CLERK TRANSFUSE RED BLOOD CELLS Timed 2019 6:57 PM CLASSIFICATION CONTROL CLERK PREPARE RBC Routine 01/05/2020 6:43 PM CLASSIFICATION CONTROL CLERK ABO/RH STAT 01/05/2020 4:00 PM CLASSIFICATION CONTROL CLERK CROSSMATCH STAT 01/05/2020 4:00 PM CLASSIFICATION CONTROL CLERK ANTIBODY SCREEN STAT 01/05/2020 4:00 PM CLASSIFICATION CONTROL CLERK TYPE AND SCREEN STAT 01/05/2020 4:00 PM CLASSIFICATION CONTROL CLERK POC GUAIAC OCCULT BLOOD, FEC AL, NOT FOR NEOPLASM SCREENING Routine 01/05/2020 2:17 PM CLASSIFICATION CONTROL CLERK ECG 12-LEAD STAT 01/05/2020 1:48 PM CLASSIFICATION CONTROL CLERK APTT STAT 01/05/2020 12:42 PM CLASSIFICATION CONTROL CLERK PROTIME-INR STAT 01/05/2020 12:42 PM CLASSIFICATION CONTROL CLERK D-DIMER, QUANTITATIVE STAT 01/05/2020 12:42 PM CLASSIFICATION CONTROL CLERK EGFR STAT 01/05/2020 12:41 PM CLASSIFICATION CONTROL CLERK DIFFERENTIAL AUTO STAT 01/05/2020 12:41 PM CLASSIFICATION CONTROL CLERK B ABO / RH CONFIRMATION TESTING STAT 01/05/2020 12:41 PM CLASSIFICATION CONTROL CLERK PRO B-TYPE NATRIURETIC PEPTIDE STAT 0 01/05/2020 12:41 PM CLASSIFICATION CONTROL CLERK THYROID FUNCTION CASCADE Add-On 020 12:41 PM CLASSIFICATION CONTROL CLERK IRON PROFILE W/ IBC STAT 01/05/2020 12:41 PM CLASSIFICATION CONTROL CLERK CBC WITH AUTO DIFFERENTIAL STAT 01/05 12:41 PM CLASSIFICATION CONTROL CLERK TROPONIN T STAT 01/05/2020 12:41 PM CLASSIFICATION CONTROL CLERK FOLATE Routine 01/05/2020 12:41 PM CLASSIFICATION CONTROL CLERK VITAMIN B12 Routine 01/05/2020 12:41 PM CLASSIFICATION CONTROL CLERK COMPREHENSIVE METABOLIC PANEL STAT 12:41 PM CLASSIFICATION CONTROL CLERK XR CHEST PA LATERAL 2 VIEWS ED 12/27 12:23 PM CLASSIFICATION CONTROL CLERK documented in this encounter Results * Surgical pathology (01/07/2020 11:54 AM CLASSIFICATION CONTROL CLERK) Tissue (Polyp(s), colon/colorectal, esophageal, gastric) 01/07/2020 9:58 AM CLASSIFICATION CONTROL CLERK Tissue (Polyp(s), colon/colorectal, esophageal, gastric) 01/07/2020 9:58 AM CLASSIFICATION CONTROL CLERK Narrative PATHOLOGY [facility] - 01/08/2020 10:09 AM CLASSIFICATION CONTROL CLERK [facility] results best viewed via link to PDF [facility] Department of Pathology [address] [place] [address] Final Report Patient Name: ??JOLENE GORDON Address: ??[address] [place] [address], ??[place], [place] ??[address] Gender: ??F : ??1945 (Age: 74) Service: ??Medical Location: ??[facility] ACUTE MED Hospital #: ??[id number] Patient Type: ??[facility] IP Accession # [id number] Taken: ??01/07/2020 Received: ??01/07/2020 Accessioned: ??01/07/2020 Reported: [...] determined by the Surgical Pathology Department at [facility] as part of an ongoing manager quality program and in compliance with federally [...] determined by the Surgical Pathology Department [facility]. ??It has not been cleared or approved by the U. S. Food and Drug Administration. Pebbles Felton MD LAB PATHOLOGY ORDERABLES F inal Result PATHOLOGY [facility] [address] [place] [address] * H. pylori urease screen (RADHA test) Tissue (01/07/2020 9:40 AM CLASSIFICATION CONTROL CLERK) H. pylori, rapid (RADHA) Negative Negative [facility] Tissue 01/07/2020 9:40 AM CLASSIFICATION CONTROL CLERK 01/07/2020 12:00 PM CLASSIFICATION CONTROL CLERK Pebbles Felton MD LAB MICROBIOLOGY - GENERAL ORDERABLES Final Result [facility] 1 [facility] Department [place] [address] * COLONOSCOPY (01/07/2020 9:12 AM CLASSIFICATION CONTROL CLERK) Anatomical Region Laterality Modality Other Narrative Procedure Note Pebbles Felton MD - 01/07/2020 9:12 AM CST [facility] Patient Name: Jolene Gordon Procedure Date: 01/07/2020 9:12 AM Date of : 1945 Admit Type: Inpatient Age: 74 Gender: Female Attending MD: Pebbles Felton M.D. Room: [facility] ENDOSCOPY ROOM 1 Note Status: Finalized [...] passed under direct vision.The Pediatric Colonoscope PCF-H190L [id number] was introduced through the anus and advanced [...] 9:12 AM Procedure Code(s): --- Professional --- 06673, Colonoscopy, flexible; with removal of tumor(s), polyp(s), or other lesion(s) by snare technique 13813, 59, Colonoscopy, flexible; with biopsy, single or multiple Diagnosis Code(s): --- Professional --- K64.8, Other hemorrhoids D12.0, Benign neoplasm of cecum D12.4, Benign neoplasm of descending colon R19.5, Other fecal abnormalities D50.9, Iron deficiency anemia, unspecified K57.30, Diverticulosis of large intestine without perforation orabscess without bleeding CPT copyright 2017 [employer]. All rights reserved. The codes documented in this report are preliminary and upon certified procedural coder reviewmay be revised to meet current compliance requirements. Recognized by the [employer] for promoting quality in endoscopy us Pebbles Felton MD ENDOSCOPY PROCEDURES Final Result * EGD (01/07/2020 9:11 AM CLASSIFICATION CONTROL CLERK) Anatomical Region Laterality Modality Other Narrative Procedure Note Pebbles Felton MD - 01/07/2020 9:11 AM CST [facility] Patient Name: Jolene Gordon Procedure Date: 01/07/2020 9:11 AM Date of : 1945 Admit Type: Inpatient Age: 74 Gender: Female Attending MD: Pebbles Felton M.D. Room: [facility] ENDOSCOPY ROOM 1 Note Status: Finalized [...] was passed under direct vision.The Endoscope GIF-H190 [id number] was introduced throughthe mouth, and advanced to [...] 9:11 AM Procedure Code(s): --- Professional --- 36210, Esophagogastroduodenoscopy, flexible, transoral; with biopsy, single or multiple Diagnosis Code(s): --- Professional --- K29.70, Gastritis, unspecified, without bleeding K44.9, Diaphragmatic hernia without obstruction or gangrene D50.9, Iron deficiency anemia, unspecified R19.5, Other fecal abnormalities CPT copyright 2017 [employer]. All rights reserved. The codes documented in this report are preliminary and upon certified procedural coder reviewmay be revised to meet current compliance requirements. Recognized by the [place] for promoting quality in endoscopy Pebbles Felton MD ENDOSCOPY PROCEDURES Final Result * (ABNORMAL) POCT glucose (01/07/2020 7:03 AM CLASSIFICATION CONTROL CLERK) Pathologist [facility] Glucose, POC 143(H) 71 - 98 mg/dL [facility] ([place]) Blood specimen (specimen) 01/07/2020 7:03 AM CLASSIFICATION CONTROL CLERK 01/07/2020 7:03 AM CLASSIFICATION CONTROL CLERK Sudarshan Jones Jr., MD LAB POCT ORDERABLES - DEVICE Final Result [facility] 1 [facility] Department [place] [address] * eGFR (01/07/2020 3:25 AM CLASSIFICATION CONTROL CLERK) Pathologist [facility] eGFR 89 mL/min/1.7 3 m2 [facility] ([place]) Comment: Interpretive Data Reference Interval Normal ?>/= 90 mL/min/1.73m2 Mildly decreased* ? 60 - 89 mL/min/1.73m2 Mildly to moderately decreased ?45 - 59 mL/min/1.73m2 Moderately to severely decreased ??30 - 44 mL/min/1.73m2 Severely decreased ?15 - 29 mL/min/1.73m2 Kidney Failure ?< 15 ??mL/min/1.73m2 *Relative to young adult level If -Maltese multiply value by 1.16. Estimated glomerular filtration [...] 2016. Blood specimen (specimen) 01/07/2020 3:25 AM CLASSIFICATION CONTROL CLERK 01/07/2020 4:14 AM CLASSIFICATION CONTROL CLERK us Sudarshan Jones Jr., MD LAB BLOOD ORDERABLE S Final Result Performing Organization Address [facility]/ZIP Co de Phone Number [facility] ([place]) 1 [facility] Department [place] [address] * Phosphorus (01/07/2020 3:25 AM CLASSIFICATION CONTROL CLERK) Phosphorus, pl 4.4 2.3 - 4.5 mg/dL [facility] ([place]) Blood specimen (specimen) 01/07/2020 3:25 AM CLASSIFICATION CONTROL CLERK 01/07/2020 4:14 AM CLASSIFICATION CONTROL CLERK us Pebbles Felton MD LAB BLOOD ORDERABLES Final Result Performing Organization Address City/State/[facility] Co de Phone Number [facility] ([place]) [address] Department [place] [address] * Magnesium (01/07/2020 3:25 AM CLASSIFICATION CONTROL CLERK) Magnesium 2.0 1.4 - 2.5 mg/dL [facility] ([place]) Blood specimen (specimen) 01/07/2020 3:25 AM CLASSIFICATION CONTROL CLERK 01/07/2020 4:14 AM CLASSIFICATION CONTROL CLERK Pebbles Felton MD LAB BLOOD ORDERABLES Final Result [facility] ([place]) 1 [facility] [place] [address] * Basic metabolic panel (01/07/2020 3:25 AM CLASSIFICATION CONTROL CLERK) Sodium 142 135 - 145 mmol/L [facility] ([place]) Potassium, pl 3.4 3.3 - 4.9 mmol/L [facility] Chloride 105 97 - 110 mmol/L [facility] ([place]) CO2 24 22 - 32 mmol/L [facility] ([place] Anion gap 13 2 - 15 mmol/L [facility] ([place] BUN 8 8 - 25 mg/dL [facility] ([place]) Creatinine 0.63 0.60 - 1.10 mg/dL [facility] ([place]) Glucose 108 70 - 199 mg/dL [facility] ([place]) Comment: Interpretive Data Fasting glucose [...] ([place]) Blood specimen (specimen) 01/07/2020 3:25 AM CLASSIFICATION CONTROL CLERK 01/07/2020 4:14 AM CLASSIFICATION CONTROL CLERK us Pebbles Felton MD LAB BLOOD ORDERABLES Final Result [facility] ([place]) 1 [facility] [employer] [place] [address] * (ABNORMAL) CBC without differential (01/07/2020 3:25 AM CLASSIFICATION CONTROL CLERK) WBC 6.6 3.8 - 9.9 K/cumm [...] ([place]) Blood specimen (specimen) 01/07/2020 3:25 AM CLASSIFICATION CONTROL CLERK 01/07/2020 4:14 AM CLASSIFICATION CONTROL CLERK us Pebbles Felton MD LAB BLOOD ORDERABLES Final Result [facility] ([place]) 1 [facility] [place] [address] * Lactate dehydrogenase (LD) (01/07/2020 3:25 AM CLASSIFICATION CONTROL CLERK) Lactate dehydrogenase (LDH) 167 100 - 250 Units/L [facility] ([place]) Blood specimen (specimen) 01/07/2020 3:25 AM CLASSIFICATION CONTROL CLERK 01/07/2020 4:14 AM CLASSIFICATION CONTROL CLERK us Pebbles Felton MD LAB BLOOD ORDERABLES Final Result Performing Organization Address City/[facility]/ZIP Co de Phone Number [facility] ([place]) 1 [facility] [place] [address] * Transfuse RBC (01/06/2020 8:05 PM CLASSIFICATION CONTROL CLERK) Blood specimen (specimen) us Sudarshan Jones Jr., MD BLOOD TRANSFUSION O RDERABLES Final Result Performing Organization Address City/[facility] Co de Phone Number [facility] ([place]) 1 [facility] [place] [address] * Transfuse RBC: 1 Units (01/06/2020 8:05 PM CLASSIFICATION CONTROL CLERK) Blood specimen (specimen) us Sudarshan Jones Jr., MD BLOOD TRANSFUSION O RDERABLES Final Result * Prepare RBC: 1 Units (01/06/2020 4:16 PM CLASSIFICATION CONTROL CLERK) Units requested 1 [facility] ([place]) Units requested Ready [facility] ([place]) Unit Number [id number] [facility] ([place]) Product code [id number] [facility] ([place]) Blood Expiration Date [id number] [facility] ([place]) Product Blood Type (for scanning) 7300 [facility] ([place]) Product Blood Type BPOS [facility] ([place]) Dispense Status DISPENSED [facility] ([place]) Blood specimen (specimen) 01/06/2020 4:16 PM CLASSIFICATION CONTROL CLERK 01/06/2020 4:16 PM CLASSIFICATION CONTROL CLERK us Sudarshan Jones Jr., MD BLOOD BANK PRODUCT ORDERABLES Final Result [facility] ([place]) 1 [facility] Department of Laboratories [place], [place] [id number] * (ABNORMAL) Differential, auto (01/06/2020 4:32 AM CLASSIFICATION CONTROL CLERK) Neutrophil abs 4.4 1.7 - 6.5 K/cumm [facility] ([place]) Imm gran abs 0.0 0.0 - 0.1 K/cumm [facility] ([place]) Lymphocyte abs 0.6(L) 0.8 - 3.3 K/cumm [facility] ([place]) Monocyte abs 0.4 0.2 - 0.8 K/cumm [facility] ([place]) Eosinophil abs 0.2 0.0 - 0.5 K/cumm [facility] ([place]) Basophil abs 0.0 0.0 - 0.1 K/cumm [facility] ([place]) Neutrophil pct 77.6 % [facility] ([place]) Comment: Interpretive Data Percent cell count reference ranges are not reported, since discordance with absolute values may lead to misinterpretation of CBC data. Current Interpretive Data was last revised on 2018. Imm gran pct 0.7 % [facility] ([place]) Comment: Interpretive Data Percent cell count reference ranges are not reported, since discordance with absolute values may lead to misinterpretation of CBC data. Current Interpretive Data was last revised on 2018. Lymphocyte pct 11.1 % [facility] ([place]) Comment: Interpretive Data Percent cell count reference [...] 2018. Blood specimen (specimen) 01/06/2020 4:32 AM CLASSIFICATION CONTROL CLERK 01/06/2020 4:37 AM CLASSIFICATION CONTROL CLERK us Ana Stubbs MD LAB BLOOD ORDERABLES Final R esult [facility] ([place]) 1 [facility] Department [place] [address] * (ABNORMAL) CBC with auto differential (01/06/2020 4:32 AM CLASSIFICATION CONTROL CLERK) WBC 5.7 3.8 - 9.9 K/cumm [...] ([place]) Blood specimen (specimen) 01/06/2020 4:32 AM CLASSIFICATION CONTROL CLERK 01/06/2020 4:37 AM CLASSIFICATION CONTROL CLERK us Ana Stubbs MD LAB BLOOD ORDERABLES Final R esult [facility] ([place]) 1 [facility] [place] [address] * Transfuse RBC (01/05/2020 10:23 PM CLASSIFICATION CONTROL CLERK) Blood specimen (specimen) Pebbles Felton MD BLOOD TRANSFUSION ORDERABL ES Final Result Performing Organization Address [facility]/ZIP Co de Phone Number [facility] ([place]) 1 [facility] [place] [address] * Transfuse RBC: 1 Units (01/05/2020 10:23 PM CLASSIFICATION CONTROL CLERK) Blood specimen (specimen) Pebbles Felton MD BLOOD TRANSFUSION ORDERABL ES Final Result * Prepare RBC: 1 Units (01/05/2020 7:00 PM CLASSIFICATION CONTROL CLERK) Units requested 1 [facility] ([place]) Units requested Ready [facility] ([place]) Blood specimen (specimen) 01/05/2020 7:00 PM CLASSIFICATION CONTROL CLERK 01/05/2020 7:00 PM CLASSIFICATION CONTROL CLERK Narrative [facility] ([place]) - 01/05/2020 7:00 PM CLASSIFICATION CONTROL CLERK Are special requirements needed? (all products are leukoreduced)->No us Pebbles Felton MD BLOOD BANK PRODUCT ORDERAB LES Final Result [facility] ([place]) 1 [facility] [place] [address] * Prepare RBC (01/05/2020 6:43 PM CLASSIFICATION CONTROL CLERK) Unit Number [id number] [facility] ([place]) Product code [id number] [facility] ([place]) Blood Expiration Date [id number] [facility] ([place]) Product Blood Type (for scanning) 5100 [facility] ([place]) Product Blood Type OPOS [facility] ([place]) Dispense Status DISPENSED [facility] ([place]) us Pebbles Felton MD BLOOD BANK PRODUCT ORDERAB LES Final Result [facility] ([place]) 1 [facility] [place] [address] * Crossmatch (01/05/2020 4:00 PM CLASSIFICATION CONTROL CLERK) Crossmatch Compatible [facility] ([place]) Unit number for crossmatch [id number] [facility] Crossmatch Compatible [facility] ([place]) Unit number for crossmatch [id number] [facility] ([place]) Blood specimen (specimen) 01/05/2020 4:00 PM CLASSIFICATION CONTROL CLERK 01/05/2020 4:03 PM CLASSIFICATION CONTROL CLERK us Jacklyn Spear MD LAB BLOOD BANK TEST ORDE NILS Edited Result - Final Performing Organization Address [facility] Co de Phone Number [facility] ([place]) 1 [facility] [place] [address] * Antibody screen (01/05/2020 4:00 PM CLASSIFICATION CONTROL CLERK) Rocky, indirect, Gel Interpretation Negative ABSC [facility] ([place]) Blood specimen (specimen) 01/05/2020 4:00 PM CLASSIFICATION CONTROL CLERK 01/05/2020 4:03 PM CLASSIFICATION CONTROL CLERK Narrative [facility] ([place]) - 01/05/2020 4:45 PM CLASSIFICATION CONTROL CLERK Has the patient had Daratumumab (Darzalex) in the past 6 months?->Unknown us Ana Stubbs MD LAB BLOOD BANK TEST ORDERABL ES Final Result [facility] ([place]) 1 [facility] Department [place] [address] * ABO/Rh (01/05/2020 4:00 PM CLASSIFICATION CONTROL CLERK) ABO/Rh B Positive [facility] ([place]) Blood specimen (specimen) 01/05/2020 4:00 PM CLASSIFICATION CONTROL CLERK 01/05/2020 4:03 PM CLASSIFICATION CONTROL CLERK Narrative [facility] ([place]) - 01/05/2020 4:45 PM CLASSIFICATION CONTROL CLERK Has the patient had Daratumumab (Darzalex) in the past 6 months?->Unknown us Ana Stubbs MD LAB BLOOD BANK TEST ORDERABL ES Final Result Performing Organization Address [facility] Co de Phone Number [facility] THO[facility] ([place]) 1 [facility] [place] [address] * (ABNORMAL) POC Guaiac occult blood, fecal, non-neoplasm (01/05/2020 2:17 PM CLASSIFICATION CONTROL CLERK) Guaiac occult blood, fecal Positive QC Positive Control Acceptable Stool 01/05/2020 2:17 PM CLASSIFICATION CONTROL CLERK us Ana Stubbs MD POINT OF CARE TEST ORDERABLE S Final Result * ECG 12 lead (01/05/2020 1:48 PM CLASSIFICATION CONTROL CLERK) 01/05/2020 1:48 PM CLASSIFICATION CONTROL CLERK Narrative [facility] - 01/06/2020 6:07 AM CLASSIFICATION CONTROL CLERK Vent Rate: 78 bpm RR Interval: 760 msec MA Interval: 173 msec QRS Duration: 105 msec QT Interval: 404 msec QTC Interval: 438 msec P-R-T [place]: 49 - -9 - 74 degrees SINUS RHYTHM NORMAL ECG Electronically Signed By: Quang Diego MD us Ana Stubbs MD ECG ORDERABLES Final Result Performing Organization Address City/[facility]/ZIP Co de Phone Number [facility] [employer] [address] [facility] * aPTT (01/05/2020 12:42 PM CLASSIFICATION CONTROL CLERK) aPTT 30 25 - 37 sec [facility] ([place]) Comment: Interpretive data Heparin therapeutic range: 60-94 seconds Range based on correlation with therapeutic heparin activity range of 0.3-0.7 units/ml. Current interpretive data was last revised on 2019. Blood specimen (specimen) 01/05/2020 12:42 PM CLASSIFICATION CONTROL CLERK 01/05/2020 1:42 PM CLASSIFICATION CONTROL CLERK Ana Stubbs MD LAB BLOOD ORDERABLES Final R esult Performing Organization Address [facility] Co de Phone Number [facility] ([place]) 1 [facility] [place] [address] * (ABNORMAL) Protime-INR (01/05/2020 12:42 PM CLASSIFICATION CONTROL CLERK) Pathologist [facility] PT 18.1(H) 9.5 - 13.0 sec [facility] ([place]) INR 1.6(H) 0.9 - 1.2 [facility] ([place]) Comment: Interpretive data Oral anticoagulant therapeutic ranges: Venous thromboembolism prophylaxis or treatment: 2.0-3.0 CARDIOLOGY Standard range: 2.0-3.0 High-intensity range: 2.5-3.5 Refer to indication-specific guidelines for appropriate target ranges for prosthetic heart valve replacement. Current interpretive data was last revised on 2019. Blood specimen (specimen) 01/05/2020 12:42 PM CLASSIFICATION CONTROL CLERK 01/05/2020 1:42 PM CLASSIFICATION CONTROL CLERK Ana Stubbs MD LAB BLOOD ORDERABLES Final R esult Performing Organization Address City/[facility] Co de Phone Number [facility] ([place]) 1 [facility] [place] [address] * D-dimer, quantitative (01/05/2020 12:42 PM CLASSIFICATION CONTROL CLERK) D-Dimer 291 <=499 ng/mL [facility] ([place]) Comment: Interpretive data FDA approved the [...] 2019. Blood specimen (specimen) 01/05/2020 12:42 PM CLASSIFICATION CONTROL CLERK 01/05/2020 1:42 PM CLASSIFICATION CONTROL CLERK Aan Stubbs MD LAB BLOOD ORDERABLES Final R esult Performing Organization Address [facility] Co de Phone Number [facility] ([place]) 1 [facility] [place] [address] * TSH reflex to free T4 (01/05/2020 12:41 PM CLASSIFICATION CONTROL CLERK) TSH 2.85 0.30 - 4.20 mcIUnit/mL [facility] ([place]) Blood specimen (specimen) 01/05/2020 12:41 PM CLASSIFICATION CONTROL CLERK 01/06/2020 7:16 AM CLASSIFICATION CONTROL CLERK Narrative [facility] ([place]) - 01/06/2020 7:51 AM CLASSIFICATION CONTROL CLERK Use already drawn blood Neeru Gonzalez MD LAB BLOOD ORDERABLES Final Resul t Performing Organization Address City/[facility]/ZIP Co de Phone Number [facility] ([place]) 1 [facility] [place] [address] * ABO / Rh Confirmation Testing (01/05/2020 12:41 PM CLASSIFICATION CONTROL CLERK) ABO/Rh Confirmation B Positive [facility] ([place]) Blood specimen (specimen) 01/05/2020 12:41 PM CLASSIFICATION CONTROL CLERK 01/05/2020 6:17 PM CLASSIFICATION CONTROL CLERK Ana Stubbs MD LAB BLOOD ORDERABLES Final R esult Performing Organization Address [facility]/ZIP Co de Phone Number [facility] ([place]) 1 [facility] [place] [employer] [address] * Folate (01/05/2020 12:41 PM CLASSIFICATION CONTROL CLERK) Pathologist [facility] Folic acid 9.5 >=5.0 ng/mL [facility] ([place]) Comment:Testing performed by : [facility], [address] [place] [address], [id number] Blood specimen (specimen) 01/05/2020 12:41 PM CLASSIFICATION CONTROL CLERK 01/05/2020 7:20 PM CLASSIFICATION CONTROL CLERK Ana Stubbs MD LAB BLOOD ORDERABLES Final R esult Performing Organization Address [facility] Co de Phone Number [facility] ([place]) 1 [facility] [place] [address] * Vitamin B12 (01/05/2020 12:41 PM CLASSIFICATION CONTROL CLERK) Pathologist [facility] Vitamin B12 496 230 - 1,250 pg/mL [facility] ([place]) Comment:Testing performed by : [facility], [address] [place] [address]., [id number] Blood specimen (specimen) 01/05/2020 12:41 PM CLASSIFICATION CONTROL CLERK 01/05/2020 7:20 PM CLASSIFICATION CONTROL CLERK Ana Stubbs MD LAB BLOOD ORDERABLES Final R esult Performing Organization Address City/[facility]/ZIP Co de Phone Number [facility] ([place]) 1 [facility] [place] [address] * (ABNORMAL) Iron profile w/ IBC (01/05/2020 12:41 PM CLASSIFICATION CONTROL CLERK) Pathologist [facility] Iron 11(L) 35 - 145 mcg/dL [facility] ([place]) TIBC 449(H) 250 - 400 mcg/dL [facility] ([place]) Transferrin saturation 2(L) 20 - 50 % [facility] ([place] Blood specimen (specimen) 01/05/2020 12:41 PM CLASSIFICATION CONTROL CLERK 01/05/2020 2:29 PM CLASSIFICATION CONTROL CLERK us Ana Stubbs MD LAB BLOOD ORDERABLES Final R esult Performing Organization Address City/[facility] Co de Phone Number [facility] TH[facility] ([place]) 1 [facility] [employer] [place] [address] * eGFR (01/05/2020 12:41 PM CLASSIFICATION CONTROL CLERK) eGFR 78 mL/min/1.7 3 m2 [facility] ([place]) Comment: Interpretive Data Reference Interval Normal ?>/= 90 mL/min/1.73m2 Mildly decreased* ? 60 - 89 mL/min/1.73m2 Mildly to moderately decreased ?45 - 59 mL/min/1.73m2 Moderately to severely decreased ??30 - 44 mL/min/1.73m2 Severely decreased ?15 - 29 mL/min/1.73m2 Kidney Failure ?< 15 ??mL/min/1.73m2 *Relative to young adult level If -Maltese multiply value by 1.16. Estimated glomerular filtration [...] 2016. Blood specimen (specimen) 01/05/2020 12:41 PM CLASSIFICATION CONTROL CLERK 01/05/2020 12:56 PM CLASSIFICATION CONTROL CLERK us Ana Stubbs MD LAB BLOOD ORDERABLES Final R esult Performing Organization Address City/[facility] Co de Phone Number [facility] THOM[facility] ([place]) [address] Department [place] [address] * (ABNORMAL) Differential, auto (01/05/2020 12:41 PM CLASSIFICATION CONTROL CLERK) Neutrophil abs 8.4(H) 1.7 - 6.5 K/cumm [facility] ([place]) Imm gran abs 0.1 0.0 - 0.1 K/cumm [facility] ([place]) Lymphocyte abs 0.5(L) 0.8 - 3.3 K/cumm [facility] ([place]) Monocyte abs 0.5 0.2 - 0.8 K/cumm [facility] ([place]) Eosinophil abs 0.2 0.0 - 0.5 K/cumm [facility] ([place]) Basophil abs 0.0 0.0 - 0.1 K/cumm [facility] ([place]) Neutrophil pct 86.5 % [facility] ([place]) Comment: Interpretive Data Percent cell count reference ranges are not reported, since discordance with absolute values may lead to misinterpretation of CBC data. Current Interpretive Data was last revised on 2018. Imm gran pct 0.6 % [facility] ([place]) Comment: Interpretive Data Percent cell count reference ranges are not reported, since discordance with absolute values may lead to misinterpretation of CBC data. Current Interpretive Data was last revised on 2018. Lymphocyte pct 5.2 % [facility] ([place]) Comment: Interpretive Data Percent cell count reference ranges are not reported, since discordance with absolute values may lead to misinterpretation of CBC data. Current Interpretive Data was last revised on 2018. Monocyte pct 5.3 % [facility] ([place]) Comment: Interpretive Data Percent cell count reference ranges are not reported, since discordance with absolute values may lead to misinterpretation of CBC data. Current Interpretive Data was last revised on 2018. Eosinophil pct 2.0 % [facility] ([place]) Comment: Interpretive Data Percent cell count reference ranges are not reported, since discordance with absolute values may lead to misinterpretation of CBC data. Current Interpretive Data was last revised on 2018. Basophil pct 0.4 % [facility] ([place]) Comment: Interpretive Data Percent cell count reference ranges are not reported, since discordance with absolute values may lead to misinterpretation of CBC data. Current Interpretive Data was last revised on 2018. Blood specimen (specimen) 01/05/2020 12:41 PM CLASSIFICATION CONTROL CLERK 01/05/2020 12:56 PM CLASSIFICATION CONTROL CLERK Ana Stubbs MD LAB BLOOD ORDERABLES Final R [facility] Performing Organization Address [facility] Co de Phone Number [facility]AHE THOM[facility] ([place]) 1 [facility] [place] [address] * Troponin T (01/05/2020 12:41 PM CLASSIFICATION CONTROL CLERK) Troponin T <0.01 0.00 - 0.01 ng/mL [facility] ([place]) Comment: Interpretive Data Reference ranges for children <18 years of age have not been established. - > or = 18 years: Serial determinations are recommended for the diagnosis of myocardial infarction. ??Temporal rise and fall are consistent with myocardial infarction when at least one value is above the 99th percentile upper reference limit for troponin assay. ??Journal of the [place] [employer] 2012;60:1581-98. Current Interpretive Data Last Revised Date: 2018. Blood specimen (specimen) 01/05/2020 12:41 PM CLASSIFICATION CONTROL CLERK 01/05/2020 12:56 PM CLASSIFICATION CONTROL CLERK Ana Stubbs MD LAB BLOOD ORDERABLES Final R [facility] Performing Organization Address City/[facility] Co de Phone Number [facility]ENNIFERVAHE WILLIAM ([place]) 1 [facility] [place] [address] * Pro B-type natriuretic peptide (01/05/2020 12:41 PM CLASSIFICATION CONTROL CLERK) NT-proBNP 86 <=300 pg/mL [facility] ([place]) Comment: Interpretive Comments: A. Dyspnea in Acute [...] 2018. Blood specimen (specimen) 01/05/2020 12:41 PM CLASSIFICATION CONTROL CLERK 01/05/2020 12:56 PM CLASSIFICATION CONTROL CLERK us Ana Stubbs MD LAB BLOOD ORDERABLES Final R esult [facility] [place] 1 [facility] Department of [employer] [place], [place] [id number] * Comprehensive metabolic panel (01/05/2020 12:41 PM CLASSIFICATION CONTROL CLERK) Sodium 135 135 - 145 mmol/L [...] ([place]) Blood specimen (specimen) 01/05/2020 12:41 PM CLASSIFICATION CONTROL CLERK 01/05/2020 12:56 PM CLASSIFICATION CONTROL CLERK us Ana Stubbs MD LAB BLOOD ORDERABLES Final R esult [facility] ([place]) 1 [facility] [place] [address] * (ABNORMAL) CBC with auto differential (01/05/2020 12:41 PM CLASSIFICATION CONTROL CLERK) WBC 9.7 3.8 - 9.9 K/cumm [...] ([place]) Blood specimen (specimen) 01/05/2020 12:41 PM CLASSIFICATION CONTROL CLERK 01/05/2020 12:56 PM CLASSIFICATION CONTROL CLERK us Ana Stubbs MD LAB BLOOD ORDERABLES Final R esult [facility] ([place]) 1 [facility] Department [place] [address] * XR Chest Pa Lateral 2 Views (01/05/2020 12:23 PM CLASSIFICATION CONTROL CLERK) Anatomical Region Laterality Modality Body, Chest N/A Computed Radiogr aphy 01/05/2020 12:3 1 PM CLASSIFICATION CONTROL CLERK Impressions 01/05/2020 12:32 PM CLASSIFICATION CONTROL CLERK 1. ??No acute abnormality. 2. ??Moderate to large hiatal hernia. Electronically signed by: Jonathan Barber M.D. Narrative 01/05/2020 12:32 PM CLASSIFICATION CONTROL CLERK EXAMINATION: XR CHEST PA LATERAL 2 [...] colon prepIndications:colon prep Given 01/06/2020 8:28 AM CLASSIFICATION CONTROL CLERK 15 mg carvediloL (COREG) tablet 6.25 mg 6.25 mg, oral, 2 times daily with meals (bkfst, dinner), First dose on Sun01/06/20 at 0800, Hold for SBP<105 and/or HR<55 Given 01/07/2020 12:08 PM CLASSIFICATION CONTROL CLERK 6.25 mg Given 01/06/2020 5:49 PM CLASSIFICATION CONTROL CLERK 6.25 mg Given 01/06/2020 8:09 AM CLASSIFICATION CONTROL CLERK 6.25 mg ferric gluconate (FERRLECIT) 125 mg of elemental iron in sodium chloride 0.9% 100 mL IVPB 125 mg of elemental iron, intravenous, at 110 mL/hr, Administer over 60 Minutes, Once, On Sun01/06/20 at 0800, For 1 dose, Room temperature only New Bag 01/06/2020 8:29 AM CLASSIFICATION CONTROL CLERK 125 mg of elemental iron 110 mL/hr magnesium citrate oral solution 296 mL 296 mL, oral, Once, On Sun01/07/20 at 0400, For 1 dose, Pre-Op/Floor (GI), Administer at 4:00 AM on the day of the procedure., Indications: Bowel EvacuationIndications:Bowel Evacuation Given 01/07/2020 4:21 AM CLASSIFICATION CONTROL CLERK 296 mL ondansetron (ZOFRAN) injection 4 mg [...] Bowel EvacuationIndications:Bowel Evacuation Given 01/06/2020 7:51 PM CLASSIFICATION CONTROL CLERK 119 g Given 01/06/2020 4:09 PM CLASSIFICATION CONTROL CLERK 119 g sodium chloride 0.9% flush 0.5-20 mL 0.5-20 mL, intra-catheter, Every 8 hours scheduled, First dose on Sun01/06/20 at 0615, Flush volume based on line type and size. Given 01/06/2020 4:09 PM CLASSIFICATION CONTROL CLERK 10 mL sodium chloride 0.9% infusion 50 mL/hr, intravenous, Continuous, Starting on Sun01/05/20 at 1500 New Bag 01/06/2020 8:05 AM CLASSIFICATION CONTROL CLERK 50 mL/hr 50 mL/hr Rate/Dose Change 01/05/2020 5:54 PM CLASSIFICATION CONTROL CLERK 50 mL/hr 50 mL/h r New Bag 01/05/2020 3:21 PM CLASSIFICATION CONTROL CLERK 150 mL/hr 150 mL/hr sodium chloride 0.9% infusion 30 mL/hr, intravenous, Continuous, Starting on Sun01/07/20 at 0900, Pre-Procedure (GI) Rate/Dose Verify 01/07/2020 9:22 AM CLASSIFICATION CONTROL CLERK New Bag 01/07/2020 8:27 AM CLASSIFICATION CONTROL CLERK 30 mL/hr 30 mL/hr sodium chloride 0.9% IVPB 0-250 mL 0-250 mL, intravenous, Once, On Sun01/06/20 at 1615, For 1 dose, Prime blood tubing and administer amount needed to clear line (usually 50-100 mL) after transfusion complete. New Bag 01/06/2020 5:10 PM CLASSIFICATION CONTROL CLERK 250 mL documented in this encounter Discontinued Medications Medication Sig Discontinue Reason Start Date End Da te methotrexate 2.5 mg tablet Take 12.5 mg by mouth every 7 days sunday Stop Taking at Discharge 10/30/2018 01/07/2020 documented as of this encounter Active and Recently Administered Medications Times are shown in CLASSIFICATION CONTROL CLERK. Scheduled Medication Order 01/05/2020 01/06/2020 01/07/2020 [...] temperature only 0829 (New Bag - Provider: Doris Monroy, RN) magnesium citrate oral solution 296 [...] Provider: Marianne Masterson RN - Reason: Other)0818 ([facility] Hold - Provider: Automatic Transfer Provider - Reason: Patient not available)0819 ([facility] Unhold - Provider: Automatic Transfer Provider)0822 ([facility] Hold - Provider: Automatic Transfer Provider - Reason: Patient not available)1057 ([facility] Unhold - Provider: Automatic Transfer Provider)1400 [...] at 0541, Indications: Nausea and Vomiting 0818 ([facility] Hold - Pro vider: Automatic Transfer Provider - Reason: Patient not available)0819 ([facility] Unhold - Provider: Automatic Transfer Provider)0822 ([facility] Hold - Provider: Automatic Transfer Provider - Reason: Patient not available)1057 ([facility] Unhold - Provider: Automatic Transfer Provider) ondansetron ODT (ZOFRAN-ODT) disintegrating tablet 4 mg(Linked Group 1) 4 mg, oral, Every 6 hours PRN, nausea, vomiting, Starting on Sun01/06/20 at 0541, Indications: Nausea and Vomiting 0818 ([facility] Hold - Pro vider: Automatic Transfer Provider - Reason: Patient not available)0819 ([facility] Unhold - Provider: Automatic Transfer Provider)0822 ([facility] Hold - Provider: Automatic Transfer Provider - Reason: Patient not available)1057 ([facility] Unhold - Provider: Automatic Transfer Provider) sodium chloride 0.9% flush 0.5-20 mL 0.5-20 mL, intra-catheter, As needed, line care, Starting on Sun01/06/20 at 0541, Flush volume based on line type and size. Flush before and after each use. 0818 ([facility] Hold - Pro vider: Automatic Transfer Provider - Reason: Patient not available)0819 ([facility] Unhold - Provider: Automatic Transfer Provider)0822 ([facility] Hold - Provider: Automatic Transfer Provider [...] 01/05/2020 documented in this encounter Care Teams Chief Nurse Relationship Specialty Start Date End Date Inez Long MD PCP - General 02/23/17 05/15/22 Neil Ag MD PhD [address] [place] [address] Radiation Oncologist Radiation Oncology 12/17/18 [place] [id number] [phone] Referring Physician General Surgery 12/17/18 [place] [id number] [phone] Medical Oncologist/Industrial Engineering Technician Medical Oncology 12/17/18 [place] [id number] [phone] Consulting Physician Gastroenterology 01/07/20 documented as of this encounter
--- OUTSIDE RECORDS SUMMARY | 2024-11-16 15:39 | XMS_ITS | Encounter Summary ---
Author Organization [facility] Address [address] [place] [address] Care Team Providers Care Educational Aide Name Role Phone Inez Long MD Primary Care Provider [phone] Neil Ag MD PhD Unavailable Ita Vazquez MD Unavailable Caron Mohan MD Unavailable Reason for Visit * Reason Comments Thrombophilia Encounter Details Date Type Department Care Team (Latest Contact Info) Description 12/02/2019 12:50 PM PLASTIC TUBING INSULATION SUPERVISOR - 12/03/2019 4:37 PM PLASTIC TUBING INSULATION SUPERVISOR Hospital Encounter [facility] IMU [address] [place] [address] Ana Stubbs MD [address] [facility] [place] [address] Jacklyn Spear MD [address] [facility] [address] [address] [place] [place] [address] Renu Martínez Jr., MD [address] [place] [address] [place] [address] PE (pulmonary thromboembolism) (CMS/HCC) (Primary Dx) Discharge [...] file Legal Sex Female 12:21 PM PLASTIC TUBING INSULATION SUPERVISOR Gender Identity Not on file Sexual Orientation Not on file documented as of this encounter Last Filed Vital Signs Vital Sign Reading Time Taken Comments Blood Pressure 167/79 12/03/2019 11:47 AM PLASTIC TUBING INSULATION SUPERVISOR Pulse 85 12/03/2019 11:47 AM PLASTIC TUBING INSULATION SUPERVISOR Temperature 36.5 ??C (97.7 ??F) 12/03/2019 1 1:47 AM PLASTIC TUBING INSULATION SUPERVISOR Respiratory Rate 16 12/03/2019 11:4 7 AM PLASTIC TUBING INSULATION SUPERVISOR Oxygen Saturation 94% 12/03/2019 11: 47 AM PLASTIC TUBING INSULATION SUPERVISOR Inhaled Oxygen Concentration - - Weight 84.3 kg (185 lb 14.4 oz) 12/02/2019 5:00 PM PLASTIC TUBING INSULATION SUPERVISOR Height 170.2 cm (5' 7 ) 12/02/2019 5:00 PM PLASTIC TUBING INSULATION SUPERVISOR Body Mass Index 29.12 12/02/2019 5:00 PM PLASTIC TUBING INSULATION SUPERVISOR documented in this encounter Discharge Diagnoses Diagnosis [...] STATUS [ER+] Estrogen receptor positive status [ER+] [facility] (current) use of aromatase inhibitors - 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 (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) USE OF AROMATASE INHIBITORS Personal history [...] DRUGS, MEDICAMENTS AND BIOLOGICAL SUBSTANCES STATUS Other technician terminal and repeater (current) drug therapy - OTHER [facility] (CURRENT) DRUG THERAPY documented in this encounter Discharge Summaries * Renu Martínez Jr., MD - 12/03/2019 2:06 PM CST [place], [place] Hospitalist Discharge Summary Patient Name: Jolene Gordon Patient : 1945 Room/Bed: OAG9701/[id number] Admission Date/Time: 12/02/2019 12:50 PM Discharge date: [...] normal mammogram 3 weeks ago from her comb fixer onc physician Petra (results in Care Everywhere). [...] Complete W Doppler/cf Result Date: 12/03/2019 Narrative: [address] [place] [address] Echocardiogram Report Patient Name: JOLENE GORDON : 1945 Study Date: 12/03/2019 8:17:56 AM Gender: F Tech: KAYLA Location: [place] [address] Ref.Provider: RENU MARTÍNEZ Height(Cm): 170 BSA: 2 [...] Signed By: Reyes Unger MD 2019-12-03 13:04:[address]ULATION SUPERVIS[address] Chest Pe W Contrast Result Date: [...] been communicated to ordering provider via the Gigaom Critical Result tracking system. Status of follow up communication is recorded in Gigaom. Impression: 1. Bilateral pulmonary embolus with moderate [...] medications were sent to [facility] [place], [place] - [address] [facility] [address] [facility] [address], [facility] [id number] ?? apixaban 5 mg tablet ?? apixaban [...] Specialty: Internal Medicine Relationship: PCP - General [address] [place] [address] [address] [facility] [address] Next Steps: Follow up Inez Long MD Specialty: Internal Medicine Relationship: PCP - [facility] Attributed PCP [address] [facility] [facility] [facility] [address] Next Steps: Follow up Total time spent on day of discharge 25 minutes Signed: Renu Martínez Jr., MD Internal Medicine - Hospitalist [facility] - Adult Hospitalist Service 12/03/2019 2:06 PM Cc: Inez Long MD TIC TUBING INSULATION SUPERVISOR documented in this encounter Discharge Instructions * Discharge Instructions* Mounika Patten RN - 12/03/2019 2:58 PM PLASTIC TUBING INSULATION SUPERVISOR Images from the original note were not [...] ask them during your visits. ?? 2017 [employer] Information is for End User's use only and may not be sold, redistributed or otherwise used for commercial purposes. All illustrations and images included in CareNotes?? are the copyrighted property of [employer] or [employer]. The above information is an educational aide only. It is not intended as medical advice for individual conditions or treatments. Talk to your doctor, nurse or pharmacist before following any medical regimen to see if it is safe and effective for you. TIC TUBING INSULATION SUPERVISOR * Attachments The following attachments cannot be sent through Care Everywhere. * Carvedilol (By mouth) ([place]) * Apixaban (By mouth) ([place]) documented in this encounter Medications at Time [...] See me this week Sunday or Sunday TIC TUBING INSULATION SUPERVISOR * Jami Pettti MA - 12/03/2019 4:37 PM CST LM to call office so appt can be scheduled TIC TUBING INSULATION SUPERVISOR * Lauren Curiel RN - 12/03/2019 2:20 PM CST 12/03/19 [employer] CAMERON letter given? Yes CAMERON letter given on: 12/03/19 CAMERON Letter Given at: 1007 TIC TUBING INSULATION SUPERVISOR * Caesar Vega [facility] - 12/03/2019 2:06 PM CST Cinthya, manager clinical pharmacy, counseled the patient for apixaban and gave informational materials. Patient was not previously on medication prior to admission. Patient had question about crystal. An information handout was offered to the patient. Cinthya Gomez, Pharm.D. Candidate TIC TUBING INSULATION SUPERVISOR * Bayron Jensen RN - 12/02/2019 3:26 [...] steps inside: 2 steps Financial Resource Income Halfway/Pension Payor Source Medicare Potential Discharge Needs Anticipated discharge level of care Private residence Pt/Family agrees with Anticipated Level of Care Unknown Patient expects to be discharged to: Private residence Dialysis No Behavioral Health Services No TIC TUBING INSULATION SUPERVISOR * Bayron Jensen RN - 12/02/2019 3:24 [...] railing? 4 Total Score (range 6-24) 24 TIC TUBING INSULATION SUPERVISOR documented in this encounter H&P Notes * Renu Martínez Jr., MD - 12/02/2019 6:57 PM CST [facility] Adult Hospitalist Service History and Physical Patient Name: Jolene Gordon Patient : 1945 Age/Sex: 73 y.o. female Room/Bed: [place] [address]/[id number] Admission Date/Time: 12/02/2019 12:50 PM Date: 12/02/2019 Time: 6:57 PM Primary Care Physician: Inez Long MD PCP Office Location: [address] [place] [address] PCP Chief Complaint: shortness of breath HPI: [...] mammogram, encounter for 1945 ??? Uterine cancer ([facility]/HCC) 04/2018 Past Surgical History: Procedure Laterality Date [...] been communicated to ordering provider via the Gigaom Critical Result tracking system. Status of follow up communication is recorded in Gigaom. Impression: 1. Bilateral pulmonary embolus with moderate [...] normal mammogram 3 weeks ago from her comb fixer onc physician Petra (results in Care Everywhere). Essential hypertension Continue home antihypertensives. History of malignant neoplasm of upper-inner quadrant of left breast in female, estrogen receptor positive (CMS/HCC) S/p lumpectomy, home letrozole to be replaced with formulary anastrozole while inpatient per pharmacy. Followed by comb fixer onc as an outpatient. History of malignant neoplasm of uterus (CMS/HCC) S/p hysterectomy. 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 rheumatoid factor (CMS/HCC) Continue home methotrexate, administered weekly on Wednesdays. DVT PPx - on Eliquis Expected LOS: less than 2 midnights MDM: moderate complexity Renu Martínez Jr., MD Internal Medicine - Hospitalist [facility] - Adult Hospitalist Service CC: Inez Long MD TIC TUBING INSULATION SUPERVISOR TIC TUBING INSULATION SUPERVISOR documented in this encounter Nursing Notes * Portia Gallegos RN - 12/03/2019 4:37 PM CST Patient and were read discharge instructions. No questions at this time. Patient left via wheelchair to private auto to home with at 1633. TIC TUBING INSULATION SUPERVISOR documented in this encounter ED Notes * [...] Diagnoses or Management Options PE (pulmonary thromboembolism) ([facility]): Amount and/or Complexity of Data Reviewed [...] admission. By: Frederick Mendoza PE (pulmonary thromboembolism) ([facility]) This note is prepared by Frederick [...] and actions. Ana Stubbs MD 12/02/19 1812 TIC TUBING INSULATION SUPERVISOR * Shabana Soni RN - 12/02/2019 12:54 PM CST Pt is in the ED for c/o blood clot in lungs. Pt was having a CT scan due to SOB ordered by PCP. Pt has multiple blood clots in her lungs. She stated she has been sob x1 week. TIC TUBING INSULATION SUPERVISOR * Molly Galan RN - 12/02/2019 12:50 PM CST Bed: ED08 Expected date: Expected time: Means of arrival: Comments: CT Molly Galan RN 12/02/19 1250 TIC TUBING INSULATION SUPERVISOR documented in this encounter Miscellaneous Notes * [...] and is tolerating the blood thinner well. TIC TUBING INSULATION SUPERVISOR * Plan of Care - Daisy Jasso RN - 12/03/2019 4:59 AM CST Goals: Clinical Goals for the Shift: VSS, breathe easy throughout the night. Summary: Resting quietly at interval with stable VSS, no shortness of breath at this time with rest, but slight with exertion. Problem: Health Behavior: Goal: Understanding of discharge needs will improve Outcome: Progressing TIC TUBING INSULATION SUPERVISOR * Assessment & Plan Note - Renu Martínez Jr., MD - 12/02/2019 7:16 PM PLASTIC TUBING INSULATION SUPERVISOR Associated Problem(s): 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 rheumatoid factor (CMS/HCC) (HCC) Continue home methotrexate, administered weekly on Wednesdays. TIC TUBING INSULATION SUPERVISOR * Assessment & Plan Note - Renu Martínez Jr., MD - 12/02/2019 7:15 PM PLASTIC TUBING INSULATION SUPERVISOR Associated Problem(s): Malignant neoplasm of uterus (CMS/HCC) (HCC) (Resolved 07/02/2020) S/p hysterectomy. TIC TUBING INSULATION SUPERVISOR * Assessment & Plan Note - Renu Martínez Jr., MD - 12/02/2019 7:14 PM PLASTIC TUBING INSULATION SUPERVISOR Associated Problem(s): Malignant neoplasm of upper-inner quadrant of left breast in female, estrogen receptor positive (HCC) S/p lumpectomy, home letrozole to be replaced with formulary anastrozole while inpatient per pharmacy. Followed by comb fixer onc as an outpatient. TIC TUBING INSULATION SUPERVISOR TIC TUBING INSULATION SUPERVISOR TIC TUBING INSULATION SUPERVISOR * Assessment & Plan Note - Renu Martínez Jr., MD - 12/02/2019 7:14 PM PLASTIC TUBING INSULATION SUPERVISOR Associated Problem(s): Essential hypertension Continue home antihypertensives. TIC TUBING INSULATION SUPERVISOR * Assessment & Plan Note - Renu Martínez Jr., MD - 12/02/2019 7:03 PM PLASTIC TUBING INSULATION SUPERVISOR Associated Problem(s): Bilateral pulmonary embolism (CMS/HCC) (HCC) [...] normal mammogram 3 weeks ago from her comb fixer onc physician Petra (results in Care Everywhere). TIC TUBING INSULATION SUPERVISOR documented in this encounter Plan of Treatment Not on file documented as of this encounter Procedures Procedure Name Priority Date/Time Associated Diagnosis Comments TRANSTHORACIC ECHO (TTE) COMPLETE W DOPPLER/CF WO CONTRAST STAT 12/03/2019 8:57 AM PLASTIC TUBING INSULATION SUPERVISOR EGFR Routine 12/03/2019 4:38 AM PLASTIC TUBING INSULATION SUPERVISOR CBC WITHOUT DIFFERENTIAL Routine 12/03/2019 4:38 AM PLASTIC TUBING INSULATION SUPERVISOR PHOSPHORUS Routine 12/03/2019 4:38 AM PLASTIC TUBING INSULATION SUPERVISOR MAGNESIUM Routine 12/03/2019 4:38 AM PLASTIC TUBING INSULATION SUPERVISOR BASIC METABOLIC PANEL Routine 12/03/2019 4:38 AM PLASTIC TUBING INSULATION SUPERVISOR XR CHEST 1 VIEW ED 12/02/2019 2:24 PM PLASTIC TUBING INSULATION SUPERVISOR EGFR STAT 12/02/2019 1:24 PM PLASTIC TUBING INSULATION SUPERVISOR DIFFERENTIAL AUTO STAT 12/02/2019 1:2 4 PM PLASTIC TUBING INSULATION SUPERVISOR PRO B-TYPE NATRIURETIC PEPTIDE STAT 12/02/2019 1:24 PM PLASTIC TUBING INSULATION SUPERVISOR CBC WITH AUTO DIFFERENTIAL STAT 12/02/2019 1:24 PM PLASTIC TUBING INSULATION SUPERVISOR APTT STAT 12/02/2019 1:24 PM PLASTIC TUBING INSULATION SUPERVISOR PROTIME-INR STAT 12/02/2019 1:24 PM PLASTIC TUBING INSULATION SUPERVISOR TROPONIN T STAT 12/02/2019 1:24 PM PLASTIC TUBING INSULATION SUPERVISOR MAGNESIUM Routine 12/02/2019 1:24 PM PLASTIC TUBING INSULATION SUPERVISOR COMPREHENSIVE METABOLIC PANEL STAT 12/02/2019 1:24 PM PLASTIC TUBING INSULATION SUPERVISOR ECG 12-LEAD Routine 12/02/2019 1:22 PM PLASTIC TUBING INSULATION SUPERVISOR documented in this encounter Results * TRANSTHORACIC ECHO (TTE) COMPLETE W DOPPLER/CF WO CONTRAST (12/03/2019 8:57 AM PLASTIC TUBING INSULATION SUPERVISOR) Anatomical Region Laterality Modality Ultrasound 12/03/2019 8:17 AM PLASTIC TUBING INSULATION SUPERVISOR Narrative 12/03/2019 1:04 PM PLASTIC TUBING INSULATION SUPERVISOR [address] [address] Echocardiogram Report Patient Name: JOLENE GORDON : 1945 Study Date: 12/03/2019 8:17:56 AM Gender: F Tech: KAYLA Location: [id number] Ref.Provider: RENU MARTÍNEZ Height(Cm): 170 BSA: 2 [...] Signed By: Reyes Unger MD 2019-12-03 13:04:47 PLASTIC TUBING INSULATION SUPERVISOR Procedure Note Reyes Unger MD - 12/03/[address] [address] Echocardiogram Report Patient Name: JOLENE GORDON : 1945 Study Date: 12/03/2019 8:17:56 AM Gender: F Tech: Location: [id number] Ref.Provider: RENU MARTÍNEZ Height(Cm): 170 BSA: 2 [...] Signed By: Reyes Unger MD 2019-12-03 13:04:47 PLASTIC TUBING INSULATION SUPERVISOR us Ana Stubbs MD CV ECHO PROCEDURES Final Res ult * eGFR (12/03/2019 4:38 AM PLASTIC TUBING INSULATION SUPERVISOR) eGFR 87 mL/min/1.7 3 m2 [facility] ([place]) Comment: Interpretive Data Reference Interval Normal ?>/= 90 mL/min/1.73m2 Mildly decreased* ? 60 - 89 mL/min/1.73m2 Mildly to moderately decreased ?45 - 59 mL/min/1.73m2 Moderately to severely decreased ??30 - 44 mL/min/1.73m2 Severely decreased ?15 - 29 mL/min/1.73m2 Kidney Failure ?< 15 ??mL/min/1.73m2 *Relative to young adult level If -Mozambican multiply value by 1.16. Estimated glomerular filtration [...] 2016. Blood specimen (specimen) 12/03/2019 4:38 AM PLASTIC TUBING INSULATION SUPERVISOR 12/03/2019 5:04 AM PLASTIC TUBING INSULATION SUPERVISOR us Renu Martínez Jr., MD LAB BLOOD ORDERABLE S Final Result [facility] ([place]) 1 [facility] Department [place] [employer] [place] [address] * Phosphorus (12/03/2019 4:38 AM PLASTIC TUBING INSULATION SUPERVISOR) Pathologist [facility] Phosphorus, pl 3.8 2.3 - 4.5 mg/dL [facility] ([place]) Blood specimen (specimen) 12/03/2019 4:38 AM PLASTIC TUBING INSULATION SUPERVISOR 12/03/2019 5:04 AM PLASTIC TUBING INSULATION SUPERVISOR Renu Martínez Jr., MD LAB BLOOD ORDERABLE S Final Result [facility] ([place]) 1 [facility] [place] [address] * Magnesium (12/03/2019 4:38 AM PLASTIC TUBING INSULATION SUPERVISOR) Pathologist [facility] Magnesium 2.0 1.6 - 2.4 mg/dL [facility] ([place]) Blood specimen (specimen) 12/03/2019 4:38 AM PLASTIC TUBING INSULATION SUPERVISOR 12/03/2019 5:04 AM PLASTIC TUBING INSULATION SUPERVISOR us Renu Martínez Jr., MD LAB BLOOD ORDERABLE S Final Result Performing Organization Address City/[facility] Co de Phone Number [facility] ([place]) 1 [facility] [place] [address] * (ABNORMAL) Basic metabolic panel (12/03/2019 4:38 AM PLASTIC TUBING INSULATION SUPERVISOR) Pathologist [facility] Sodium 136 135 - 145 mmol/L [facility] ([place]) Potassium, pl 3.8 3.3 - 4.9 mmol/L [facility] ([place]) Chloride 100 97 - 110 mmol/L [facility] ([place] CO2 25 22 - 32 mmol/L [facility] ([place]) Anion gap 12 2 - 15 mmol/L [facility] ([place]) BUN 19 8 - 25 mg/dL [facility] ([place]) Creatinine 0.69 0.60 - 1.10 mg/dL [facility] ([place]) Glucose 212(H) 70 - 199 mg/dL [facility] ([place]) Comment: Interpretive Data Fasting glucose [...] ([place]) Blood specimen (specimen) 12/03/2019 4:38 AM PLASTIC TUBING INSULATION SUPERVISOR 12/03/2019 5:04 AM PLASTIC TUBING INSULATION SUPERVISOR us Renu Martínez Jr., MD LAB BLOOD ORDERABLE S Final Result [facility] ([place]) 1 [facility] Department [place] [address] * (ABNORMAL) CBC without differential (12/03/2019 4:38 AM PLASTIC TUBING INSULATION SUPERVISOR) WBC 7.9 3.8 - 9.9 K/cumm CERNER [...] ([place]) Blood specimen (specimen) 12/03/2019 4:38 AM PLASTIC TUBING INSULATION SUPERVISOR 12/03/2019 5:04 AM PLASTIC TUBING INSULATION SUPERVISOR us Renu Martínez Jr., MD LAB BLOOD ORDERABLE S Final Result [facility] ([place]) 1 [facility] Department [place] [address] * XR Chest 1 View (12/02/2019 2:24 PM PLASTIC TUBING INSULATION SUPERVISOR) Anatomical Region Laterality Modality Body, Chest N/A Computed Radiogr aphy 12/02/2019 3:18 PM PLASTIC TUBING INSULATION SUPERVISOR Impressions 12/02/2019 3:19 PM PLASTIC TUBING INSULATION SUPERVISOR No acute findings. Electronically signed by: Saqib Potter M.D. Narrative 12/02/2019 3:19 PM PLASTIC TUBING INSULATION SUPERVISOR EXAMINATION: XR CHEST 1 VIEW ORDERING HEALTHCARE [...] Resu lt * eGFR (12/02/2019 1:24 PM PLASTIC TUBING INSULATION SUPERVISOR) eGFR 87 mL/min/1.7 3 m2 [facility] ([place]) Comment: Interpretive Data Reference Interval Normal ?>/= 90 mL/min/1.73m2 Mildly decreased* ? 60 - 89 mL/min/1.73m2 Mildly to moderately decreased ?45 - 59 mL/min/1.73m2 Moderately to severely decreased ??30 - 44 mL/min/1.73m2 Severely decreased ?15 - 29 mL/min/1.73m2 Kidney Failure ?< 15 ??mL/min/1.73m2 *Relative to young adult level If -Mozamb[place] multiply value by 1.16. Estimated glomerular filtration [...] 2016. Blood specimen (specimen) 12/02/2019 1:24 PM PLASTIC TUBING INSULATION SUPERVISOR 12/02/2019 1:28 PM PLASTIC TUBING INSULATION SUPERVISOR Ana Stubbs MD LAB BLOOD ORDERABLES Final R esult [facility] ([place]) 1 [facility] Department [place] [address] * (ABNORMAL) Differential, auto (12/02/2019 1:24 PM PLASTIC TUBING INSULATION SUPERVISOR) Neutrophil abs 7.5(H) 1.7 - 6.5 K/cumm [...] 2018. Blood specimen (specimen) 12/02/2019 1:24 PM PLASTIC TUBING INSULATION SUPERVISOR 12/02/2019 1:28 PM PLASTIC TUBING INSULATION SUPERVISOR Ana Stubbs MD LAB BLOOD ORDERABLES Final R esult [facility] ([place]) 1 [facility] [place] [address] * Troponin T (12/02/2019 1:24 PM PLASTIC TUBING INSULATION SUPERVISOR) Troponin T <0.01 0.00 - 0.01 ng/mL [...] limit for troponin assay. ??Journal of the [place] College [employer] 2012;60:1581-98. Current Interpretive Data Last Revised Date: 2018. Blood specimen (specimen) 12/02/2019 1:24 PM PLASTIC TUBING INSULATION SUPERVISOR 12/02/2019 1:28 PM PLASTIC TUBING INSULATION SUPERVISOR Ana Sutbbs MD LAB BLOOD ORDERABLES Final R esult [facility] ([place]) 1 [facility] [place] [address] * (ABNORMAL) Protime-INR (12/02/2019 1:24 PM PLASTIC TUBING INSULATION SUPERVISOR) PT 13.2(H) 9.5 - 13.0 sec [facility] [...] 2019. Blood specimen (specimen) 12/02/2019 1:24 PM PLASTIC TUBING INSULATION SUPERVISOR 12/02/2019 1:28 PM PLASTIC TUBING INSULATION SUPERVISOR us Ana Stubbs MD LAB BLOOD ORDERABLES Final R esult [facility] ([place]) 1 [facility] Department of Laboratories [place], [place] [id number] * Pro B-type natriuretic peptide (12/02/2019 1:24 PM PLASTIC TUBING INSULATION SUPERVISOR) NT-proBNP 193 <=300 pg/mL [facility] ([place]) [...] 2018. Blood specimen (specimen) 12/02/2019 1:24 PM PLASTIC TUBING INSULATION SUPERVISOR 12/02/2019 1:28 PM PLASTIC TUBING INSULATION SUPERVISOR Ana Stubbs MD LAB BLOOD ORDERABLES Final R esult Performing Organization Address [facility] de Phone Number [facility] ([place]) 1 [facility] [place] [address] * Magnesium (12/02/2019 1:24 PM PLASTIC TUBING INSULATION SUPERVISOR) [facility] Magnesium 2.0 1.6 - 2.4 mg/dL [facility] ([place]) Blood specimen (specimen) 12/02/2019 1:24 PM PLASTIC TUBING INSULATION SUPERVISOR 12/02/2019 1:28 PM PLASTIC TUBING INSULATION SUPERVISOR Ana Stubbs MD LAB BLOOD ORDERABLES Final R esult Performing Organization Address [facility] de Phone Number [facility] ([place]) 1 [facility] [place] [address] * (ABNORMAL) Comprehensive metabolic panel (12/02/2019 1:24 PM PLASTIC TUBING INSULATION SUPERVISOR) Sodium 134(L) 135 - 145 mmol/L [facility] ([place]) Potassium, pl 3.7 3.3 - 4.9 mmol/L [facility] ([place]) Chloride 96(L) 97 - 110 mmol/L C[facility]ER [...] pecimen Blood specimen (specimen) 12/02/2019 1:24 PM PLASTIC TUBING INSULATION SUPERVISOR 12/02/2019 1:28 PM PLASTIC TUBING INSULATION SUPERVISOR us Ana Stubbs MD LAB BLOOD ORDERABLES Final R esult [facility] ([place]) 1 [facility] Department [place] [address] * (ABNORMAL) CBC with auto differential (12/02/2019 1:24 PM PLASTIC TUBING INSULATION SUPERVISOR) WBC 8.8 3.8 - 9.9 K/cumm [facility] ([place]) Hgb 11.1(L) 11.9 - 15.5 g/dL [facility] ([place]) Hct 36.9 35.6 - 45.5 % [facility] ([place]) Plt 267 150 - 400 K/cumm [facility] ([place]) MPV 10.5 9.1 - 12.3 fL [facility] ([place]) RBC 4.87 3.90 - 5.20 M/cumm [facility] ([place]) MCV 75.8(L) 81.3 - 96.4 fL [facility] ([place]) MCH 22.8(L) 27.1 - 33.3 pg [facility] ([place]) MCHC 30.1(L) 32.3 - 35.7 g/dL [facility] ([place]) RDW CV 24.1(H) 11.1 - 14.9 % [facility] ([place]) RDW SD 63.5(H) 35.7 - 48.1 fL [facility] ([place]) NRBC abs 0.00 0.00 - 0.01 K/cumm [facility] ([place]) Blood specimen (specimen) 12/02/2019 1:24 PM PLASTIC TUBING INSULATION SUPERVISOR 12/02/2019 1:28 PM PLASTIC TUBING INSULATION SUPERVISOR Ana Stubbs MD LAB BLOOD ORDERABLES Final R esult [facility] ([place] 1 [facility] Department [place] [address] * aPTT (12/02/2019 1:24 PM PLASTIC TUBING INSULATION SUPERVISOR) aPTT 25 25 - 37 sec [facility] ([place]) Comment: Interpretive data Heparin therapeutic range: 60-94 seconds Range based on correlation with therapeutic heparin activity range of 0.3-0.7 units/ml. Current interpretive data was last revised on 2019. Blood specimen (specimen) 12/02/2019 1:24 PM PLASTIC TUBING INSULATION SUPERVISOR 12/02/2019 1:28 PM PLASTIC TUBING INSULATION SUPERVISOR us Ana Stubbs MD LAB BLOOD ORDERABLES Final R esult [facility] ([place]) 1 [facility] Department [place] [address] * ECG 12 lead (12/02/2019 1:22 PM PLASTIC TUBING INSULATION SUPERVISOR) 12/02/2019 1:22 PM PLASTIC TUBING INSULATION SUPERVISOR Narrative [facility] - 12/02/2019 6:12 PM PLASTIC TUBING INSULATION SUPERVISOR Vent Rate: 91 bpm RR Interval: 659 msec [place] Interval: 168 msec QRS Duration: 99 msec QT Interval: 372 msec QTC Interval: 420 msec P-R-T Hague: 47 - -18 - 91 degrees SINUS [...] encounter for 1945 ? ? Uterine cancer ([facility]) 04/2018 Past Surgical History: Procedure Laterality [...] and oriented to person, place, and time. [facility] MDM Number of Diagnoses or Management Options PE (pulmonary thromboembolism) ([facility]): Amount and/or Complexity of Data Reviewed [...] Ana Stubbs MD ECG ORDERABLES Final Result [facility] documented in this encounter Visit Diagnoses Diagnosis [...] thrombosisIndications:deep venous thrombosis Given 12/03/2019 9:07 AM PLASTIC TUBING INSULATION SUPERVISOR 10 mg Given 12/02/2019 9:02 PM PLASTIC TUBING INSULATION SUPERVISOR 10 mg apixaban (ELIQUIS) tablet 5 mg [...] Indications: thrombophiliaIndications:throm bophilia Given 12/02/2019 1:34 PM PLASTIC TUBING INSULATION SUPERVISOR 80 mg Right Lower Abdomen hydroCHLOROthiazide (HYDRODIURIL) tablet 12.5 mg 12.5 mg, oral, Daily, First dose on Sun12/03/19 at 0900 Given 12/03/2019 9:07 AM PLASTIC TUBING INSULATION SUPERVISOR 12.5 mg losartan (COZAAR) tablet 100 mg 100 mg, oral, Daily, First dose on Sun12/03/19 at 0900 Given 12/03/2019 9:07 AM PLASTIC TUBING INSULATION SUPERVISOR 100 mg methotrexate tablet 12.5 mg 12.5 mg, oral, Every 7 days, First dose on Sun12/03/19 at 0900, Indications: Rheumatoid ArthritisIndications:Rheumatoi d Arthritis Given 12/03/2019 11:12 AM PLASTIC TUBING INSULATION SUPERVISOR 12.5 mg documented in this encounter Discontinued [...] Recently Administered Medications Times are shown in PLASTIC TUBING INSULATION SUPERVISOR. Scheduled Medication Order 12/01/2019 12/02/2019 12/03/2019 apixaban [...] 12/02/2019 documented in this encounter Care Teams Educational Aide Relationship Specialty Start Date End Date Inez Long MD PCP - General 02/23/17 05/15/22 Neil Ag MD PhD [address] [place] [address] Radiation Oncologist Radiation Oncology 12/17/18 [place] [address] [place], [place] [id number] Referring Physician General Surgery 12/17/18 [place] [address] [place], [place] [id number] Medical Oncologist/Floor Worker Well Service Medical Oncology 12/17/18 documented as of this encounter
--- OUTSIDE RECORDS SUMMARY | 2024-11-16 15:39 | XMS_ITS | Encounter Summary ---
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 Gender Identity Not on file Sexual Orientation Not on file documented as of this encounter Progress Notes * Jossue Lee MA - 01/01/2020 10:53 AM CST Written order given to patient for quest dx to be done today RING MACHINE FEEDER documented in this encounter Plan of Treatment Not on file documented as of this encounter Visit Diagnoses Not on filedocumented in this encounter Care Teams Tile Presser Relationship Specialty Start Date End Date Francisco Long MD PCP - General 02/23/17 05/15/22 Neil Ag MD PhD [address] [place] [address] Radiation Oncologist Radiation Oncology 12/17/18 [place] [address] [place] [id number] Referring Physician General Surgery 12/17/18 [place] [address] [address] [facility] [address] [place] [id number] Medical Oncologist/Computer Engineering Technician Medical Oncology 12/17/18 documented as of this encounter
--- OUTSIDE RECORDS SUMMARY | 2024-11-16 15:40 | XMS_ITS | Encounter Summary ---
Author Organization [facility] Address [address] [facility] [address] [place] [address] Care Team Providers Care Marble Carver Name Role Phone Francisco Long MD Primary Care Provider [phone] Neil Ag MD PhD Unavailable [phone] Ita Vazquez MD Unavailable Caron Mohan MD Unavailable [phone] Encounter Details Date Type Department Care Team (Late st Contact Info) Description 09/25/2019 Orders Only [facility] 2 [facility] [address] [place] [address] Francisco Long MD [address] [place] [address] [address] [place] [address] Encounter for screening colonoscopy (Primary [...] file 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 Gender Identity Not on file Sexual Orientation Not on file documented as of this encounter Plan of Treatment Not on file documented as of this encounter Visit Diagnoses Diagnosis Encounter for screening colonoscopy- Primary documented in this encounter Care Teams Marble Carver Relationship Specialty Start Date End Date Francisco Long MD PCP - General 02/23/17 05/15/22 Neil Ag MD PhD 6 [place] [address] Radiation Oncologist Radiation Oncology 12/17/18 [place] [address] [address] [facility] [address] [place] [id number] Referring Physician General Surgery 12/17/18 [place] [address] [address] [facility] [address] [place] [id number] Medical Oncologist/Label Machine Operator Medical Oncology 12/17/18 documented as of this encounter
--- OUTSIDE RECORDS SUMMARY | 2024-11-16 15:40 | XMS_ITS | Encounter Summary ---
Author Organization [facility] Address [address] [facility] [address] [place] [address] Care Team Providers Care Sql Server Dba Name Role Phone Inez Long MD Primary Care Provider [phone] Neil Ag MD PhD Unavailable [phone] Ita Vazquez MD Unavailable Caron Mohan MD Unavailable Reason for Referral * Diagnostic Imaging (Emergency) - Closed Specialty Diagnoses / Procedures Referred By Contac t Referred To Contact Diagnoses Cough SOB (shortness of breath) Procedures XR Chest Pa Lateral 2 Vw Inez Long MD Phone: tel: fax: [facility] [address] [place] [address] Referral ID Status Reason Start Date Expiration Date Visits Re quested Visits Authorized [id number] Closed 12/01/2019 06/11/2021 1 1 R PACKER OR PACKAGER Encounter Details Date Type Department Care Team (Late st Contact Info) Description 12/01/2019 Telephone [facility] 2 [facility] [address] [place] [address] Inez Long MD [address] [place] [address] Social History Tobacco Use Types Packs/Day Years Used Date Smoking Tobacco: Never Smokeless Tobacco: Never Alcohol Use Standard Drinks/Week Comments No 0 (1 standard drink = 0.6 oz pur e alcohol) PHQ-2 Answer Date Recorded PHQ-2 Score 0 07/17/2019 Comments Unknown Sex and Gender Information Value Date Recorded Sex Assigned at Not on file 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 She states pt just left there and she is going to try and get ahold of the pt. Per verbal from JR, he would like this done as a hold and call. Sending to referrals R PACKER OR PACKAGER * Telephone Encounter - Inez Long MD - 12/01/2019 12:58 PM CST Get chest x-ray at the hospital now and then see me afterwards R PACKER OR PACKAGER * Telephone Encounter - Chyna Choe - 12/01/2019 12:56 PM CST JR please advise R PACKER OR PACKAGER * Telephone Encounter - Katie Apple - 12/01/2019 12:53 PM CST Pt was seen at the [facility] 11/14/[facility]. Per their office she still complains of cough and sob. Pt is unable to get from her car to their building without getting sob. Would like pt to beseen in our office today if possible. No appts with JR or extenders. Ok for work in? R PACKER OR PACKAGER documented in this encounter Plan of Treatment Not on file documented as of this encounter Results * XR Chest Pa Lateral 2 Vw (12/01/2019 1:59 PM ORDER PACKER OR PACKAGER) Anatomical Region Laterality Modality Body, Chest N/A Computed Radiogr aphy 12/01/2019 2:07 PM ORDER PACKER OR PACKAGER Impressions 12/01/2019 2:08 PM ORDER PACKER OR PACKAGER No radiographic evidence of acute cardiopulmonary disease. Electronically signed by: Saqib Potter M.D. Narrative 12/01/2019 2:08 PM ORDER PACKER OR PACKAGER EXAMINATION: XR CHEST PA LATERAL 2 VIEWS [...] of acute cardiopulmonary disease. Electronically signed by: Sqaib Potter M.D. us Inez Long MD IMG XR PROCEDURES Final Result documented in this encounter Visit Diagnoses Diagnosis Cough- Primary SOB (shortness of breath) Shortness of breath Cough SOB (shortness of breath) Shortness of breath documented in this encounter Care Teams Sql Server Dba Relationship Specialty Start Date End Date Inez Long MD PCP - General 02/23/17 05/15/22 Neil Ag MD PhD 6 [place] [address] Radiation Oncologist Radiation Oncology 12/17/18 [place] [address] [address] [facility] [address] [place] [address] Referring Physician General Surgery 12/17/18 [place] [address] [address] [facility] [address] [place], [place] [phone] Medical Oncologist/Bods Developer Medical Oncology 12/17/18 documented as of this encounter
--- OUTSIDE RECORDS SUMMARY | 2024-11-16 15:40 | XMS_ITS | Encounter Summary ---
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 Gender Identity Not on file Sexual Orientation Not on file documented as of this encounter Plan of Treatment Not on file documented as of this encounter Visit Diagnoses Not on filedocumented in this encounter Care Teams Ultrasonic Cleaner Relationship Specialty Start Date End Date Francisco Long MD PCP - General 02/23/17 05/15/22 Neil Ag MD PhD [address] [place] [address] Radiation Oncologist Radiation Oncology 12/17/18 [place] [address] [address] Referring Physician General Surgery 12/17/18 [place] [address] [address] Medical Oncologist/Aluminum Sheet Cutter Medical Oncology 12/17/18 documented as of this encounter
--- OUTSIDE RECORDS SUMMARY | 2024-11-16 15:40 | XMS_ITS | Encounter Summary ---
Author Organization [facility] Address [address] [facility] [address] [place] [address] Care Team Providers Care Professional Bondsman Name Role Phone Francisco Long MD Primary Care Provider [phone] Neil Ag MD PhD Unavailable [phone] Ita estrada MD Unavailable Caron Mohan MD Unavailable Reason for Visit * Reason Onset Date Comments Colonoscopy cancel 11/25/2019 Encounter Details Date Type Department Care Team (Late st Contact Info) Description 11/25/2019 Telephone [facility] Gastroenterology at [address] [place] [phone] Debi Ochoa MA Colonoscopy cancel Social History [...] file 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 Pt will call back at a later time to reschedule ETING SALES REPRESENTATIVE documented in this encounter Plan of Treatment Not on file documented as of this encounter Visit Diagnoses Not on filedocumented in this encounter Care Teams Professional Bondsman Relationship Specialty Start Date End Date Francisco Long MD PCP - General 02/23/17 05/15/22 Neil Ag MD PhD [address] [place] [address] Radiation Oncologist Radiation Oncology 12/17/18 [place] [address] [address] [facility] [address] [place] [address] Referring Physician General Surgery 12/17/18 [place] [address] [address] [facility] [address] [place] [address] Medical Oncologist/Sweat Box Attendant Medical Oncology 12/17/18 documented as of this encounter
--- OUTSIDE RECORDS SUMMARY | 2024-11-16 15:40 | XMS_ITS | Encounter Summary ---
Author Organization [facility] Address [address] [facility] [address] [place] [address] Care Team Providers Care Therapist Name Role Phone Francisco Long MD Primary Care Provider Neil Ag MD PhD Unavailable [phone] Ita Vazquez MD Unavailable Caron Mohan MD Unavailable Reason for Visit * Reason Comments Shortness of Breath Encounter Details Date Type Department Care Team (Late st Contact Info) Description 12/01/2019 2:30 PM SENIOR INSTRUMENTATION ENGINEER Office Visit [facility] 2 [facility] [address] [place] [address] Francisco Long MD [address] [place] [address] [address] [place], [place] [id number] SOB (shortness of breath) on exertion (Primary [...] file Legal Sex Female 12:21 PM SENIOR INSTRUMENTATION ENGINEER Gender Identity Not on file Sexual Orientation Not on file documented as of this encounter Last Filed Vital Signs Vital Sign Reading Time Taken Comments Blood Pressure 118/70 12/01/2019 2:35 PM SENIOR INSTRUMENTATION ENGINEER Pulse 94 12/01/2019 2:35 PM SENIOR INSTRUMENTATION ENGINEER Temperature 36.4 ??C (97.6 ??F) 12/01/2019 2 :35 PM SENIOR INSTRUMENTATION ENGINEER Respiratory Rate 36 12/01/2019 2:35 PM SENIOR INSTRUMENTATION ENGINEER Oxygen Saturation 95% 12/01/2019 2:3 5 PM SENIOR INSTRUMENTATION ENGINEER 94 % walking on room air Inhaled Oxygen Concentration - - Weight 84.8 kg (187 lb) 12/01/2019 2:35 PM SENIOR INSTRUMENTATION ENGINEER Height 168.9 cm (5' 6.5 ) 12/01/2019 2: 35 PM SENIOR INSTRUMENTATION ENGINEER Body Mass Index 29.73 12/01/2019 2:35 PM SENIOR INSTRUMENTATION ENGINEER documented in this encounter Progress Notes * [...] in agreement with the plan of care. OR INSTRUMENTATION ENGINEER documented in this encounter Plan of [...] documented as of this encounter Care Teams Therapist Relationship Specialty Start Date End Date Francisco Long MD PCP - General 02/23/17 05/15/22 Neil Ag MD PhD [address] [place] [address] Radiation Oncologist Radiation Oncology 12/17/18 [place] [address] [address] Referring Physician General Surgery 12/17/18 [place] [address] [address] [address] Medical Oncologist/Market Relationship Manager Medical Oncology 12/17/18 documented as of this encounter
--- OUTSIDE RECORDS SUMMARY | 2024-11-16 15:40 | XMS_ITS | Encounter Summary ---
Author Organization [facility] Address [address] [facility] [address] [place] [address] Care Team Providers Care Dietary Supervisor Name Role Phone Francisco Long MD Primary Care Provider [phone] Neil Ag MD PhD Unavailable [phone] Ita estrada MD Unavailable Caron Mohan MD Unavailable [phone] Encounter Details Date Type Department Care Team (Late st Contact Info) Description 09/29/2019 Telephone [facility] Gastroenterology at [address] [place] [phone] Jesenia Soto Social History Tobacco Use Types Packs/Day Years Used Date Smoking Tobacco: Never Smokeless Tobacco: Never Alcohol Use Standard Drinks/Week Comments No 0 (1 standard drink = 0.6 oz pur e alcohol) PHQ-2 Answer Date Recorded PHQ-2 Score 0 07/17/2019 Comments Unknown Sex and Gender Information Value Date Recorded Sex Assigned at Not on file 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 C COORDINATOR documented in this encounter Plan of Treatment Not on file documented as of this encounter Visit Diagnoses Diagnosis Encounter for screening colonoscopy- Primary documented in this encounter Care Teams Dietary Supervisor Relationship Specialty Start Date End Date Francisco Long MD PCP - General 02/23/17 05/15/22 Neil Ag MD PhD 6 [place] [address] Radiation Oncologist Radiation Oncology 12/17/18 [place] [address] [place], [place] [id number] Referring Physician General Surgery 12/17/18 [place] [address] [facility] [address] [facility] [place] [address] Medical Oncologist/Railcar Foreman Medical Oncology 12/17/18 documented as of this encounter
--- OUTSIDE RECORDS SUMMARY | 2024-11-16 15:40 | XMS_ITS | Encounter Summary ---
Author Organization [facility] Address [address] [facility] [address] [place] [address] Care Team Providers Care Icebox Man Name Role Phone Francisco Long MD Primary Care Provider Neil Ag MD PhD Unavailable [phone] Ita Vazquez MD Unavailable Caron Mohan MD Unavailable Reason for Visit * Reason Comments Cough Patient states she h as had a cough for 3 days. Patient states that she is taking OTC cough syrup and cough drops for her sx. 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 Female 12:21 PM SPEARER Gender Identity Not on file Sexual Orientation Not on file documented as of this encounter Last Filed Vital Signs Vital Sign Reading Time Taken Comments Blood Pressure 122/64 11/14/2019 11:07 AM SPEARER Pulse 85 11/14/2019 11:07 AM SPEARER Temperature 36.7 ??C (98.1 ??F) 11/14/2019 1 1:07 AM SPEARER Respiratory Rate 16 11/14/2019 11:0 7 AM SPEARER Oxygen Saturation 96% 11/14/2019 11: 07 AM SPEARER Inhaled Oxygen Concentration - - Weight 85.2 kg (187 lb 12.8 oz) 019 11:07 AM SPEARER Height 168.9 cm (5' 6.5 ) 11/14/2019 11 :07 AM SPEARER Body Mass Index 29.86 11/14/2019 11:07 AM SPEARER documented in this encounter Patient Instructions * Patient Instructions* Anita Hendrickson NP - 11/14/2019 11:00 AM SPEARER Complete any medications prescribed You may take [...] next 5 days, follow up w PCP. RER documented in this encounter Ordered Prescriptions Prescription [...] the plan of care Anita Hendrickson NP RER documented in this encounter Plan of Treatment Not on file documented as of this encounter Visit Diagnoses Diagnosis Cough- Primary documented in this encounter Care Teams Icebox Man Relationship Specialty Start Date End Date Francisco Long MD PCP - General 02/23/17 05/15/22 Neil Ag MD PhD [address] [place] [id number] Radiation Oncologist Radiation Oncology 12/17/18 [place] [address] [address] [facility] [address] [place] [address] Referring Physician General Surgery 12/17/18 [place] [address] [address] [facility] [address] [place] [address] Medical Oncologist/Security Site Supervisor Medical Oncology 12/17/18 documented as of this encounter
--- OUTSIDE RECORDS SUMMARY | 2024-11-16 15:40 | XMS_ITS | Encounter Summary ---
Author Organization [facility] Healthcare Address [address] [place] [address] Care Team Providers Care Welfare Case Worker Name Role Phone Inez Long MD Primary Care Provider [phone] Neil Ag MD PhD Unavailable [phone] Ita Vazquez MD Unavailable Caron Mohan MD Unavailable Reason for Referral * Diagnostic Imaging (Emergency) - Closed Specialty Diagnoses / Procedures Referred By Contac t Referred To Contact Diagnoses Cough SOB (shortness of breath) Procedures XR Chest Pa Lateral 2 Vw Inez Long MD Phone: tel: fax: [address] [address] Referral ID Status Reason Start Date Expiration Date Visits Re quested Visits Authorized [id number] Closed 12/01/2019 06/11/2021 1 1 E CASE MANAGEMENT Reason for Visit * Diagnostic Imaging (Emergency) - Closed Specialty Diagnoses / Procedures Referred By Contac t Referred To Contact Diagnoses Cough SOB (shortness of breath) Procedures XR Chest Pa Lateral 2 Vw Inez Long MD Phone: tel: fax: [address] [address] Referral ID Status Reason Start Date Expiration Date Visits Re quested Visits Authorized [id number] Closed 12/01/2019 06/11/2021 1 1 Encounter Details Date Type Department Care Team (Latest Contact Info) Description 12/01/2019 1:42 PM NURSE CASE MANAGEMENT - 12/01/2019 2:59 PM NURSE CASE MANAGEMENT Hospital Encounter [facility] Imaging Center [address] [place] [address] Inez Long MD [address] [address] Cough; SOB (shortness of breath) Discharge Disposition: [...] on file Legal Sex Female 12:21 PM NURSE CASE MANAGEMENT Gender Identity Not on file Sexual Orientation [...] chest tomorrow with contrast rule out PE E CASE MANAGEMENT documented in this encounter Plan of Treatment Not on file documented as of this encounter Procedures Procedure Name Priority Date/Time Associated Diagnosis Comments EGFR Routine 12/01/2019 3:35 PM NURSE CASE MANAGEMENT DIFFERENTIAL AUTO Routine 12/01/2019 3:3 5 PM NURSE CASE MANAGEMENT PRO B-TYPE NATRIURETIC PEPTIDE Routine 12/01/2019 3:35 PM NURSE CASE MANAGEMENT CBC WITH AUTO DIFFERENTIAL Routine 12/01/2019 3:35 PM NURSE CASE MANAGEMENT ERYTHROCYTE SEDIMENTATION RATE Routine 12/01/2019 3:35 PM NURSE CASE MANAGEMENT COMPREHENSIVE METABOLIC PANEL Routine 12/01/2019 3:35 PM NURSE CASE MANAGEMENT XR CHEST PA LATERAL 2 VIEWS STAT 12/01/2019 1:59 PM NURSE CASE MANAGEMENT Cough SOB (shortness of breath) documented in this encounter Results * eGFR (12/01/2019 3:35 PM NURSE CASE MANAGEMENT) eGFR 76 mL/min/1.7 3 m2 [facility]OM[facility] ([place]) Comment: Interpretive Data Reference Interval Normal ?>/= 90 mL/min/1.73m2 Mildly decreased* ? 60 - 89 mL/min/1.73m2 Mildly to moderately decreased ?45 - 59 mL/min/1.73m2 Moderately to severely decreased ??30 - 44 mL/min/1.73m2 Severely decreased ?15 - 29 mL/min/1.73m2 Kidney Failure ?< 15 ??mL/min/1.73m2 *Relative to young adult level If -Nigerien multiply value by 1.16. Estimated glomerular filtration [...] 2016. Blood specimen (specimen) 12/01/2019 3:35 PM NURSE CASE MANAGEMENT 12/01/2019 4:17 PM NURSE CASE MANAGEMENT us Inez Long MD LAB BLOOD ORDERABLES Final Res ult [facility] ([place]) 1 [facility] [place] [address] * (ABNORMAL) Differential, auto (12/01/2019 3:35 PM NURSE CASE MANAGEMENT) Neutrophil abs 7.6(H) 1.7 - 6.5 K/cumm [...] 2018. Blood specimen (specimen) 12/01/2019 3:35 PM NURSE CASE MANAGEMENT 12/01/2019 4:17 PM NURSE CASE MANAGEMENT Inez Long MD LAB BLOOD ORDERABLES Final Res ult Performing Organization Address [facility] Co de Phone Number ME[facility]AN [facility]OM[facility] ([place]) 1 [facility] [place] [address] * Erythrocyte sedimentation rate (12/01/2019 3:35 PM NURSE CASE MANAGEMENT) Erythrocyte sedimentation rate 10 1 - 30 mm/hr [facility] ([place]) Blood specimen (specimen) 12/01/2019 3:35 PM NURSE CASE MANAGEMENT 12/01/2019 4:17 PM NURSE CASE MANAGEMENT Inez Long MD LAB BLOOD ORDERABLES Final Res ult Performing Organization Address City/[facility]/ZIP Co de Phone Number [facility] ([place]) 1 [facility] [place] [address] * Pro B-type natriuretic peptide (12/01/2019 3:35 PM NURSE CASE MANAGEMENT) NT-proBNP 237 <=300 pg/mL [facility] ([place]) [...] as advanced age. - References: 1. Negar OJ et.al. Eur Heart J. 2006:27:330-337. 2. Shadi RW, Karen AM. J. AM Nabil Cardiol: Cardiovasc Imag. 2009;2: 216- 225. Interpretive Data Last Revised Date: 2018. Blood specimen (specimen) 12/01/2019 3:35 PM NURSE CASE MANAGEMENT 12/01/2019 4:17 PM NURSE CASE MANAGEMENT us Inez Long MD LAB BLOOD ORDERABLES Final Res ult Performing Organization Address City/State/[facility] Co de Phone Number [facility] ([place]) 1 [facility] Department [place] [address] * Comprehensive metabolic panel (12/01/2019 3:35 PM NURSE CASE MANAGEMENT) Sodium 139 135 - 145 mmol/L CERNER [...] ([place]) Blood specimen (specimen) 12/01/2019 3:35 PM NURSE CASE MANAGEMENT 12/01/2019 4:17 PM NURSE CASE MANAGEMENT Inez Long MD LAB BLOOD ORDERABLES Final Res ult [facility] ([place]) 1 [facility] [place] [address] * (ABNORMAL) CBC with auto differential (12/01/2019 3:35 PM NURSE CASE MANAGEMENT) WBC 9.3 3.8 - 9.9 K/cumm CERNER [...] ([place]) Blood specimen (specimen) 12/01/2019 3:35 PM NURSE CASE MANAGEMENT 12/01/2019 4:17 PM NURSE CASE MANAGEMENT Inez Long MD LAB BLOOD ORDERABLES Final Res ult [facility] ([place]) 1 [facility] [place] [address] * XR Chest Pa Lateral 2 Vw (12/01/2019 1:59 PM NURSE CASE MANAGEMENT) Anatomical Region Laterality Modality Body, Chest N/A Computed Radiogr aphy 12/01/2019 2:07 PM NURSE CASE MANAGEMENT Impressions 12/01/2019 2:08 PM NURSE CASE MANAGEMENT No radiographic evidence of acute cardiopulmonary disease. Electronically signed by: Saqib Potter M.D. Narrative 12/01/2019 2:08 PM NURSE CASE MANAGEMENT EXAMINATION: XR CHEST PA LATERAL 2 VIEWS [...] of acute cardiopulmonary disease. Electronically signed by: Saqbi Potter M.D. Inez Long MD IMG XR PROCEDURES Final Result documented in this encounter Visit Diagnoses Diagnosis Cough SOB (shortness of breath) Shortness of breath documented in this encounter Care Teams Welfare Case Worker Relationship Specialty Start Date End Date Inez Long MD PCP - General 02/23/17 05/15/22 Neil Ag MD PhD [address] [place] [address] Radiation Oncologist Radiation Oncology 12/17/18 [place] [address] [address] [facility] [address] [place] [id number] Referring Physician General Surgery 12/17/18 [place] [address] [address] [facility] [address] [place] [address] Medical Oncologist/Veneer Drier Medical Oncology 12/17/18 documented as of this encounter
--- OUTSIDE RECORDS SUMMARY | 2024-11-16 15:40 | XMS_ITS | Encounter Summary ---
Author Organization [facility] Medical Group Address [address] [facility] [address] [place] [address] Care Team Providers Care Scheduling Assistant Name Role Phone Francisco Long MD Primary Care Provider Neil Ag MD PhD Unavailable [phone] Ita estrada MD Unavailable Caron Mohan MD Unavailable Encounter Details Date Type Department Care Team (Late st Contact Info) Description 12/01/2019 Telephone [facility] [address] [place] [id number] Teresa Velásquez I., RN Social History Tobacco Use Types Packs/Day Years Used Date Smoking Tobacco: Never Smokeless Tobacco: Never Alcohol Use Standard Drinks/Week Comments No 0 (1 standard drink = 0.6 oz pur e alcohol) PHQ-2 Answer Date Recorded PHQ-2 Score 0 07/17/2019 Comments Unknown Sex and Gender Information Value Date Recorded Sex Assigned at Not on file Legal Sex Female 12:21 PM PROGRESS DEVELOPER Gender Identity Not on file Sexual Orientation Not on file documented as of this encounter Miscellaneous Notes * Telephone Encounter - Teresa Velásquez MA - 12/01/2019 1:05 PM PROGRESS DEVELOPER Spoke w/ Latoya at Dr. Long's office, pt is to have XR and see Dr. Long right after. I spoke w/ pt, she is aware, states she will head to [facility] and then to Dr. Long's office. RESS DEVELOPER * Telephone Encounter - Teresa Velásquez MA - 12/01/2019 12:55 PM PROGRESS DEVELOPER Pt came into clinic stating she [...] worked in today. Pt aware, verbalized understanding. RESS DEVELOPER documented in this encounter Plan of Treatment Not on file documented as of this encounter Visit Diagnoses Not on filedocumented in this encounter Care Teams Scheduling Assistant Relationship Specialty Start Date End Date Francisco Long MD PCP - General 02/23/17 05/15/22 Neil Ag MD PhD [address] [place] [address] Radiation Oncologist Radiation Oncology 12/17/18 [place] [address] [address] [place] [address] Referring Physician General Surgery 12/17/18 [place] [address] [address] [address] Medical Oncologist/Chief Of Production Medical Oncology 12/17/18 documented as of this encounter
--- OUTSIDE RECORDS SUMMARY | 2024-11-16 15:40 | XMS_ITS | Encounter Summary ---
Author Organization [facility] Medical Group Address [address] [place] [address] Care Team Providers Care Archival Records Clerk Name Role Phone Francisco Long MD Primary Care Provider Neil Ag MD PhD Unavailable [phone] Ita estrada MD Unavailable Caron Mohan MD Unavailable [phone] Encounter Details Date Type Department Care Team (Late st Contact Info) Description 10/01/2019 Telephone [facility] 2 [facility] [address] [place] [address] Winter Martinez MA Social History [...] file Legal Sex Female 12:21 PM MEDICAL OFFICER PSYCHIATRY Gender Identity Not on file Sexual Orientation Not on file documented as of this encounter Miscellaneous Notes * Telephone Encounter - Anita White MA - 10/01/2019 9:43 AM CST Pharmacy given a verbal to split RX. Patient aware CAL OFFICER PSYCHIATRY * Telephone Encounter - Francisco Long MD - 10/01/2019 8:42 AM CST Split the prescription in to 2 separate prescriptions CAL OFFICER PSYCHIATRY * Telephone Encounter - Winter Martinez MA - 10/01/2019 8:26 AM CST Recd' fax from [facility] regarding the backorder on losartan/hctz 100- 12.5. they are requesting an alternative. Please advise. CAL OFFICER PSYCHIATRY documented in this encounter Plan of Treatment Not on file documented as of this encounter Visit Diagnoses Not on filedocumented in this encounter Care Teams Archival Records Clerk Relationship Specialty Start Date End Date Francisco Long MD PCP - General 02/23/17 05/15/22 Neil Ag MD PhD [address] [place] [address] Radiation Oncologist Radiation Oncology 12/17/18 [place] [address] [employer], [place] [id number] Referring Physician General Surgery 12/17/18 [place] [address] [facility] [address] [facility], [place] [id number] Medical Oncologist/[employer] Medical Oncology 12/17/18 documented as of this encounter
--- OUTSIDE RECORDS SUMMARY | 2024-11-16 15:41 | XMS_ITS | Encounter Summary ---
Author Organization [facility] Healthcare Address [address] [place] [address] Care Team Providers Care Patient Accounts Clerk Name Role Phone Francisco Long MD Primary Care Provider Neil Ag MD PhD Unavailable [phone] Ita Vazquez MD Unavailable Caron Mohan MD Unavailable [phone] Encounter Details Date Type Department Care Team (Late st Contact Info) Description 08/11/2019 11:00 AM CDT Office Visit [facility] Radiation Oncology [address] [place] [address] Neil Ag MD PhD [address] [place] [address] Malignant neoplasm of upper-inner quadrant of left [...] on file Legal Sex Female 12:21 PM BELT MAKER Gender Identity Not on file Sexual [...] IA (pT1b, pN1mi(sn), cM0, G2, ER: Positive, NM: Positive, HER2: Negative) - Signed by Neil Ag MD PhD on 12/17/2018 Treatment Intent: adjuvant Jolene Cedillo is a 73 y.o. 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
--- OUTSIDE RECORDS SUMMARY | 2024-11-16 15:41 | XMS_ITS | Encounter Summary ---
Author Organization [facility] Medical [facility] Address [address] [facility] [address] [place] [address] Care Team Providers Care Coding Quality Analyst Name Role Phone Francisco Long MD Primary Care Provider Neil Ag MD PhD Unavailable [phone] Ita Vazquez MD Unavailable Caron Mohan MD Unavailable Encounter Details Date Type Department Care Team (Late st Contact Info) Description 09/12/2019 Orders Only [facility] [address] [facility] [address] [place] [address] Francisco Long MD [address] [place] [address] [address] [place] [address] Social History Tobacco Use Types Packs/Day Years Used Date Smoking Tobacco: Never Smokeless Tobacco: Never Alcohol Use Standard Drinks/Week Comments No 0 (1 standard drink = 0.6 oz pur e alcohol) PHQ-2 Answer Date Recorded PHQ-2 Score 0 07/17/2019 Comments Unknown Sex and Gender Information Value Date Recorded Sex Assigned at Not on file Legal Sex Female 12:21 PM BEER RUNNER Gender Identity Not on file Sexual [...] 09/13/2019 12:16 AM CDT SPLIT 09/10/2019 FROM [id number] Resulting Agency Comment Performing Organization Information: ?Site ID: [id number] ?Name: [facility] ?Address: Formerly named [facility] [place] [id number] ?Director: Alex Garcia D.O., MPH us Francisco Long MD LAB URINE ORDERABLES Final Res ult [facility] [place] documented in this encounter Visit Diagnoses Not on filedocumented in this encounter Care Teams Coding Quality Analyst Relationship Specialty Start Date End Date Francisco Long MD PCP - General 02/23/17 05/15/22 Neil Ag MD PhD [address] [place] [address] Radiation Oncologist Radiation Oncology 12/17/18 [place] [address] [address] [facility] [address] [place] [address] Referring Physician General Surgery 12/17/18 [place] [address] [address] [facility] [address] [place] [address] Medical Oncologist/Sewing Machine Tester Medical Oncology 12/17/18 documented as of this encounter
--- OUTSIDE RECORDS SUMMARY | 2024-11-16 15:41 | XMS_ITS | Encounter Summary ---
Author Organization [facility] Medical Group Address [address] [facility] [address] [place] [address] Care Team Providers Care Chronometer Assembler Name Role Phone Francisco Long MD Primary Care Provider [phone] Neil Ag MD PhD Unavailable [phone] Ita Vazquez MD Unavailable Caron Mohan MD Unavailable Reason for Visit * Reason Comments Diabetes Hypertension Hyperlipidemia Encounter Details Date Type Department Care Team (Late st Contact Info) Description 09/25/2019 10:30 AM CDT Office Visit [facility] 2 [facility] [address] [place] [address] Francisco Long MD [address] [place] [address] [address] [place], [place] [phone] Pre-diabetes (Primary Dx); Need for immunization against [...] file Legal Sex Female 12:21 PM INSTRUCTOR WARPER Gender Identity Not on file Sexual Orientation [...] 09/25/2019 documented in this encounter Care Teams Chronometer Assembler Relationship Specialty Start Date End Date Francisco Long MD PCP - General 02/23/17 05/15/22 Neil Ag MD PhD [address] [place] [address] Radiation Oncologist Radiation Oncology 12/17/18 [place] [address] [address] [facility] [address] [place], [place] [phone] Referring Physician General Surgery 12/17/18 [place] [address] [address] [facility] [address] [place] [address] Medical Oncologist/Vehicle Body Sander Medical Oncology 12/17/18 documented as of this encounter
--- OUTSIDE RECORDS SUMMARY | 2024-11-16 15:41 | XMS_ITS | Encounter Summary ---
Author Organization [facility] Medical Group Address [address] [facility] [address] [place] [address] Care Team Providers Care Spring Assembler Name Role Phone Francisco Long MD Primary Care Provider Neil Ag MD PhD Unavailable [phone] Ita Vazquez MD Unavailable Caron Mohan MD Unavailable [phone] Encounter Details Date Type Department Care Team (Late st Contact Info) Description 09/10/2019 Orders Only [facility] 2 [facility] [address] [place] [address] Francisco Long MD [address] [place] [address] [address] [place] [address] Social History Tobacco Use Types Packs/Day Years Used Date Smoking Tobacco: Never Smokeless Tobacco: Never Alcohol Use Standard Drinks/Week Comments No 0 (1 standard drink = 0.6 oz pur e alcohol) PHQ-2 Answer Date Recorded PHQ-2 Score 0 07/17/2019 Comments Unknown Sex and Gender Information Value Date Recorded Sex Assigned at Not on file Legal Sex Female 12:21 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 eGFR NON-AFR. CYMRAES 70 > OR = 60 mL/min/1 .73m2 [...] ?Site ID: [place] ?Name: [facility] ?Address: [facility] [place] [address] ?Director: Alex Garcia D.O., MPH us Francisco Long MD LAB BLOOD ORDERABLES Final Res ult Performing Organization Address [facility] de Phone Number [place] * [...] ?Site ID: [place] ?Name: [facility] ?Address: [facility] [place] [address] ?Director: Alex Garcia D.O., MPH Francisco Long MD LAB BLOOD ORDERABLES Final Res ult Performing Organization Address [facility] de Phone Number [place] * (ABNORMAL) Lipid panel with reflex to direct LDL (09/10/2019 8:28 AM CDT) Cholesterol 203(H) <200 mg/dL [facility] HDL 53 >50 mg/dL [facility] Triglycerides 140 <150 mg/dL [facility] LDL 125(H) mg/dL (calc) [facility] Comment: Reference range: <100 Desirable range <100 mg/dL for primary prevention; ?? <70 mg/dL for patients with CHD or diabetic patients with > or = 2 CHD risk factors. LDL-C is now calculated using the Harry-Cecilia calculation, which is a validated novel method providing better accuracy than the Friedewald equation in the estimation of LDL-C. Harry SS et al. RANDALL. 2013;310(19): 6870-5605 (http://education.YumZing/faq/UIJ746) Chol/HDL ratio 3.8 <5.0 (calc) [facility] Non-HDL, (LDL+VLDL) 150(H) <130 mg/dL (calc) [facility] Comment: For patients with diabetes plus 1 major ASCVD risk factor, treating to a non-HDL-C goal of <100 mg/dL (LDL-C of <70 mg/dL) is considered a therapeutic option. 09/10/2019 8:28 AM CDT 09/10/2019 8:38 AM CDT [facility] - 09/11/2019 6:26 AM CDT FASTING:YES PATIENT UNABLE TO VOID; ADVISED TO RETURN FOR COLLECTION. FASTING: YES Resulting Agency Comment Performing Organization Information: ?Site ID: [place] ?Name: [facility] ?Address: [address] [facility] [place] [address] ?Director: Alex Garcia D.O., MPH us Francisco Long MD LAB BLOOD ORDERABLES Final Res ult [facility] [place] * Vitamin D 25 hydroxy (09/10/2019 8:28 AM CDT) Pathologist [facility] Vitamin D 25-OH 32 30 - 100 ng/mL [facility] Comment: Vitamin D Status ? 25-OH Vitamin D: Deficiency: ?<20 ng/mL Insufficiency: ? 20 - 29 ng/mL Optimal: ? > or = 30 ng/mL For 25-OH Vitamin D testing on patients on D2-supplementation and patients for whom quantitation of D2 and D3 fractions is required, the QuestAssureD(TM) 25-OH VIT D, (D2,D3), LC/MS/MS is recommended: order code 32251 (patients >2yrs). For more information on this test, go to: http://education.[facility]/faq/TAO557 (This link is being provided for informational/educational purposes only.) 09/10/2019 8:28 AM CDT 09/10/2019 8:38 AM CDT Narrative [facility] - 09/11/2019 6:26 AM CDT FASTING:YES PATIENT UNABLE TO VOID; ADVISED TO RETURN FOR COLLECTION. FASTING: YES Resulting Agency Comment Performing Organization Information: ?Site ID: [place] ?Name: [facility] ?Address: [address] [facility] [place] [address] ?Director: Alex Garcia D.O., MPH us Francisco Long MD LAB BLOOD ORDERABLES Final Res ult [facility] [place] * (ABNORMAL) Hemoglobin A1c (09/10/2019 8:28 AM CDT) Hgb A1C 6.6(H) <5.7 % of total Hgb [facility] Comment: For someone without known diabetes, a [...] AM CDT 09/10/2019 8:38 AM CDT Narrative [facility] - 09/11/2019 6:26 AM CDT FASTING:YES PATIENT UNABLE TO VOID; ADVISED TO RETURN FOR COLLECTION. FASTING: YES Resulting Agency Comment Performing Organization Information: ?Site ID: [place] ?Name: [facility] ?Address: [address] [place] [id number] ?Director: Alex Garcia D.O., MPH us Francisco Long MD LAB BLOOD ORDERABLES Final Res ult [facility] [place] * (ABNORMAL) [...] ?Site ID: [place] ?Name: [facility] ?Address: [address] [place] [phone] ?Director: Alex Garcia D.O., MPH us Francisco Long MD LAB BLOOD ORDERABLES Final Res ult [facility] [place] documented in this encounter Visit Diagnoses Not on filedocumented in this encounter Care Teams Spring Assembler Relationship Specialty Start Date End Date Francisco Long MD PCP - General 02/23/17 05/15/22 Neil Ag MD PhD [address] [place] [address] Radiation Oncologist Radiation Oncology 12/17/18 [place] [address] [facility] [address] [place], [place] [id number] Referring Physician General Surgery 12/17/18 [place] [address] [facility] [address] [place], [place] [id number] Medical Oncologist/Drill Doctor Medical Oncology 12/17/18 documented as of this encounter
--- OUTSIDE RECORDS SUMMARY | 2024-11-16 15:42 | XMS_ITS | Encounter Summary ---
Author Organization [facility] Healthcare Address [address] [place] [address] Care Team Providers Care Band Tacker Name Role Phone Francisco Long MD Primary Care Provider Neil Ag MD PhD Unavailable [phone] Ita Vazquez MD Unavailable Caron Mohan MD Unavailable Reason for Visit * Reason Onset Date Comments Completion of Therapy 01/29/2019 Encounter Details Date Type Department Care Team (Late st Contact Info) Description 01/29/2019 Documentation [facility] Radiation Oncology [address] [place] [address] Neil Ag MD PhD [address] [place] [address] Completion of Therapy Social History Tobacco Use Types Packs/Day Years Used Date Smoking Tobacco: Never Smokeless Tobacco: Never Alcohol Use Standard Drinks/Week Comments No 0 (1 standard drink = 0.6 oz pur e alcohol) Comments Unknown Sex and Gender Information Value Date Recorded Sex Assigned at Not on file Legal Sex Female 12:21 PM ASSOCIATE DIRECTOR FINANCIAL AID Gender Identity Not on file Sexual Orientation [...] supervised the patient???s radiation treatment as summarized. CIATE DIRECTOR FINANCIAL AID documented in this encounter Plan of Treatment Not on file documented as of this encounter Visit Diagnoses Diagnosis Malignant neoplasm of upper-inner quadrant of left breast in female, estrogen receptor positive (HCC)- Primary documented in this encounter Care Teams Band Tacker Relationship Specialty Start Date End Date Francisco Long MD PCP - General 02/23/17 05/15/22 Neil Ag MD PhD [address] [place] [address] Radiation Oncologist Radiation Oncology 12/17/18 [place] [address] [facility] [address] [place], [place] [id number] Referring Physician General Surgery 12/17/18 [place] [address] [facility] [address] [place], [place] [id number] Medical Oncologist/Catcher Filter Tip Medical Oncology 12/17/18 documented as of this encounter
--- OUTSIDE RECORDS SUMMARY | 2024-11-16 15:42 | XMS_ITS | Encounter Summary ---
Author Organization [facility] Healthcare Address [address] [place] [address] Care Team Providers Care Boring Machine Operator Name Role Phone Francisco Long MD Primary Care Provider Neil Ag MD PhD Unavailable [phone] Ita Vazquez MD Unavailable Caron Mohan MD Unavailable [phone] Encounter Details Date Type Department Care Team (Late st Contact Info) Description 01/29/2019 OTV [facility] Radiation Oncology [address] [place] [address] Neil Ag MD PhD [address] [place] [address] Malignant neoplasm of upper-inner quadrant of left [...] on file Legal Sex Female 12:21 PM IMAGE SCIENTIST Gender Identity Not on file Sexual Orientation Not on file documented as of this encounter Last Filed Vital Signs Vital Sign Reading Time Taken Comments Blood Pressure 157/74 01/29/2019 10:51 AM IMAGE SCIENTIST Pulse 95 01/29/2019 10:51 AM IMAGE SCIENTIST Temperature 36.6 ??C (97.9 ??F) 01/29/2019 10:[address] Respiratory Rate 18 01/29/2019 10:51 AM IMAGE SCIENTIST Oxygen Saturation - - Inhaled Oxygen Concentration - - Weight 84.8 kg (187 lb) 01/29/2019 10:51 AM IMAGE SCIENTIST Height - - Body Mass Index 29.73 12/17/2018 2:50 PM IMAGE SCIENTIST documented in this encounter Progress Notes * [...] pain that requires changes in pain management. E SCIENTIST documented in this encounter Nursing Notes * Molly Gupta RN - 01/29/2019 10:39 AM CST . E SCIENTIST documented in this encounter Plan of Treatment Not on file documented as of this encounter Visit Diagnoses Diagnosis Malignant neoplasm of upper-inner quadrant of left breast in female, estrogen receptor positive (HCC)- Primary documented in this encounter Care Teams Boring Machine Operator Relationship Specialty Start Date End Date Francisco Long MD PCP - General 02/23/17 05/15/22 Neil Ag MD PhD [address] [place] [id number] Radiation Oncologist Radiation Oncology 12/17/18 [place] [address] [facility] [facility] [address] [place], [place] [id number] Referring Physician General Surgery 12/17/18 [place] [address] [facility] [address] [place] [id number] Medical Oncologist/Party Planner Medical Oncology 12/17/18 documented as of this encounter
--- OUTSIDE RECORDS SUMMARY | 2024-11-16 15:42 | XMS_ITS | Encounter Summary ---
Author Organization [facility] Healthcare Address [address] [place] [address] Care Team Providers Care Waste Specialist Name Role Phone Francisco Lnog MD Primary Care Provider [phone] Neil Ag MD PhD Unavailable + [phone] Ita estrada MD Unavailable Caron Mohan MD [...] on file Legal Sex Female 12:21 PM FILAMENT WOUND PARTS FABRICATOR Gender Identity Not on file Sexual Orientation Not on file documented as of this encounter Plan of Treatment Not on file documented as of this encounter Procedures Procedure Name Priority Date/Time Associated Diagnosis Comments RAD ONC ARIA SESSION SUMMARY 01/27/2019 10:39 AM FILAMENT WOUND PARTS FABRICATOR documented in this encounter Results * RAD ONC ARIA SESSION SUMMARY (01/27/2019 10:39 AM FILAMENT WOUND PARTS FABRICATOR) Course Name C1 L BRS [place] 2019 ARIA Course Plan Date 12/30/2018 12:25 PM ARIA Elapsed Days 19 ARIA Treatment Start Date 01/08/2019 ARIA Treatment Site LT BRST ARIA Dose Given To Date (cGy) 3,724 ARIA Session Dosage Given (cGy) 266 ARIA Plan ID LT BRST:1 ARIA Fractions Treated 14 ARIA Prescribed Dose Per Fraction (cGy) 266 ARIA Prescribed Total Dose (cGy) 4,256 ARIA 01/27/2019 10:3 9 AM FILAMENT WOUND PARTS FABRICATOR us Not In File Miscellaneous RADIATION ONCOLOGY ORD ERABLES Final Result ARIA documented in this encounter Visit Diagnoses Not on filedocumented in this encounter Care Teams Waste Specialist Relationship Specialty Start Date End Date Francisco Long MD PCP - General 02/23/17 05/15/22 Neil Ag MD PhD 6 [place] [address] Radiation Oncologist Radiation Oncology 12/17/18 [place] [address] [facility] [address] [place] [address] Referring Physician General Surgery 12/17/18 [place] [address] [facility] [address] [place] [address] Medical Oncologist/Flat Hammerer Medical Oncology 12/17/18 documented as of this encounter
--- OUTSIDE RECORDS SUMMARY | 2024-11-16 15:42 | XMS_ITS | Encounter Summary ---
Author Organization [facility] Healthcare Address [address] [place] [address] Care Team Providers Care Certified Alcohol And Drug Counselor Name Role Phone Francisco Long MD Primary Care Provider [phone] Neil Ag MD PhD Unavailable [phone] Ita Vazquez MD Unavailable Caron Mohan MD Unavailable Encounter Details Date Type Department Care Team (Late st Contact Info) Description 01/24/2019 7:45 AM LABORATORY ASSISTANT Treatment [facility] Radiation Oncology [address] [place] [address] Social History Tobacco Use Types Packs/Day Years Used Date Smoking Tobacco: Never Smokeless Tobacco: Never Alcohol Use Standard Drinks/Week Comments No 0 (1 standard drink = 0.6 oz pur e alcohol) Comments Unknown Sex and Gender Information Value Date Recorded Sex Assigned at Not on file Legal Sex Female 12:21 PM LABORATORY ASSISTANT Gender Identity Not on file Sexual Orientation Not on file documented as of this encounter Plan of Treatment Not on file documented as of this encounter Visit Diagnoses Not on filedocumented in this encounter Care Teams Certified Alcohol And Drug Counselor Relationship Specialty Start Date End Date Francisco Long MD PCP - General 02/23/17 05/15/22 Neil Ag MD PhD 6 [place] [address] Radiation Oncologist Radiation Oncology 12/17/18 [place] [address] [id number] Referring Physician General Surgery 12/17/18 [place] [address] [address] [address] Medical Oncologist/Stone Unloader Medical Oncology 12/17/18 documented as of this encounter
--- OUTSIDE RECORDS SUMMARY | 2024-11-16 15:42 | XMS_ITS | Encounter Summary ---
Author Organization [facility] Healthcare Address [address] [place] [address] Care Team Providers Care Risk Adjustment Specialist Name Role Phone Francisco Long MD Primary Care Provider [phone] Neil Ag MD PhD Unavailable [phone] Ita Vazquez MD Unavailable Caron Mohan MD Unavailable Encounter Details Date Type Department Care Team (Late st Contact Info) Description 01/27/2019 10:30 AM SURFACE MOUNT TECHNOLOGY OPERATOR Treatment [facility] Radiation Oncology [address] [place] [address] Social History Tobacco Use Types Packs/Day Years Used Date Smoking Tobacco: Never Smokeless Tobacco: Never Alcohol Use Standard Drinks/Week Comments No 0 (1 standard drink = 0.6 oz pur e alcohol) Comments Unknown Sex and Gender Information Value Date Recorded Sex Assigned at Not on file Legal Sex Female 12:21 PM SURFACE MOUNT TECHNOLOGY OPERATOR Gender Identity Not on file Sexual Orientation Not on file documented as of this encounter Plan of Treatment Not on file documented as of this encounter Visit Diagnoses Not on filedocumented in this encounter Care Teams Risk Adjustment Specialist Relationship Specialty Start Date End Date Francisco Long MD PCP - General 02/23/17 05/15/22 Neil gA MD PhD [address] [place] [address] Radiation Oncologist Radiation Oncology 12/17/18 [place] [address] [id number] Referring Physician General Surgery 12/17/18 [place] [address] [address] Medical Oncologist/Supervisor Metal Hanging Medical Oncology 12/17/18 documented as of this encounter
--- OUTSIDE RECORDS SUMMARY | 2024-11-16 15:42 | XMS_ITS | Encounter Summary ---
Author Organization [facility] Healthcare Address [address] [place] [address] Care Team Providers Care Calender Supervisor Name Role Phone Francisco Long MD Primary Care Provider [phone] Neil Ag MD PhD Unavailable + [phone] Ita estrada MD Unavailable Caron Mohan MD [...] file Legal Sex Female 12:21 PM SENIOR QUALITY ASSURANCE SPECIALIST Gender Identity Not on file Sexual Orientation Not on file documented as of this encounter Plan of Treatment Not on file documented as of this encounter Procedures Procedure Name Priority Date/Time Associated Diagnosis Comments RAD ONC ARIA SESSION SUMMARY 01/29/2019 10:38 AM SENIOR QUALITY ASSURANCE SPECIALIST documented in this encounter Results * RAD ONC ARIA SESSION SUMMARY (01/29/2019 10:38 AM SENIOR QUALITY ASSURANCE SPECIALIST) Course Name C1 L BRS [place] 2019 [...] (cGy) 4,256 ARIA 01/29/2019 10:3 8 AM SENIOR QUALITY ASSURANCE SPECIALIST us Not In File Miscellaneous RADIATION ONCOLOGY ORD ERABLES Final Result ARIA documented in this encounter Visit Diagnoses Not on filedocumented in this encounter Care Teams Calender Supervisor Relationship Specialty Start Date End Date rFancisco Long MD PCP - General 02/23/17 05/15/22 Neil Ag MD PhD [address] [place] [address] Radiation Oncologist Radiation Oncology 12/17/18 [place] [address] [facility] [address] [place] [address] Referring Physician General Surgery 12/17/18 [place] [address] [facility] [address] [place] [address] Medical Oncologist/Numerical Control Router Operator Medical Oncology 12/17/18 documented as of this encounter
--- OUTSIDE RECORDS SUMMARY | 2024-11-16 15:42 | XMS_ITS | Encounter Summary ---
Author Organization [facility] Healthcare Address [address] [place] [address] Care Team Providers Care Renewable Energy Broker Name Role Phone Francisco Long MD Primary Care Provider [phone] Neil Ag MD PhD Unavailable + [phone] Ita estrada MD Unavailable Caron Mohan MD [...] on file Legal Sex Female 12:21 PM MANGA ARTIST Gender Identity Not on file Sexual Orientation Not on file documented as of this encounter Plan of Treatment Not on file documented as of this encounter Procedures Procedure Name Priority Date/Time Associated Diagnosis Comments RAD ONC ARIA SESSION SUMMARY 01/24/2019 7:54 AM MANGA ARTIST documented in this encounter Results * RAD ONC ARIA SESSION SUMMARY (01/24/2019 7:54 AM MANGA ARTIST) Course Name C1 L BRS [place] 2019 [...] Dose (cGy) 4,256 ARIA 01/24/2019 7:54 AM MANGA ARTIST us Not In File Miscellaneous RADIATION ONCOLOGY ORD ERABLES Final Result ARIA documented in this encounter Visit Diagnoses Not on filedocumented in this encounter Care Teams Renewable Energy Broker Relationship Specialty Start Date End Date Francisco Long MD PCP - General 02/23/17 05/15/22 Neil Ag MD PhD [address] [place] [address] Radiation Oncologist Radiation Oncology 12/17/18 [place] [address] [address] Referring Physician General Surgery 12/17/18 [place] [address] [facility] [address] [place] [address] Medical Oncologist/Stone Engraver Medical Oncology 12/17/18 documented as of this encounter
--- OUTSIDE RECORDS SUMMARY | 2024-11-16 15:42 | XMS_ITS | Encounter Summary ---
Author Organization [facility] Care Team Providers Care Waste Disposal Plant Operator Name Role Phone Francisco Long MD Primary Care Provider [phone] Neil Ag MD PhD Unavailable [phone] [facility] Un[facility] Caron Mohan MD Unavailable [...] on file Legal Sex Female 12:21 PM FIREWALL ADMINISTRATOR Gender Identity Not on file Sexual Orientation Not on file documented as of this encounter Plan of Treatment Not on file documented as of this encounter Visit Diagnoses Not on filedocumented in this encounter Care Teams Waste Disposal Plant Operator Relationship Specialty Start Date End Date Francisco Long MD PCP - General 02/23/17 05/15/22 Neil Ag MD PhD [address] [place] [address] Radiation Oncologist Radiation Oncology 12/17/18 [place] [address] [facility] [address] [place] [address] Referring Physician General Surgery 12/17/18 [place] [address] [address] [facility] [address] [place], [place] [address] Medical Oncologist/Assistant Plant Control Operator Medical Oncology 12/17/18 documented as of this encounter
--- OUTSIDE RECORDS SUMMARY | 2024-11-16 15:42 | XMS_ITS | Encounter Summary ---
Author Organization [facility] Healthcare Address [address] [place] [address] Care Team Providers Care Cone Machine Operator Name Role Phone Francisco Long MD Primary Care Provider [phone] Neil Ag MD PhD Unavailable [phone] Ita Vazquez MD Unavailable Caron Mohan MD Unavailable Encounter Details Date Type Department Care Team (Late st Contact Info) Description 01/28/2019 10:30 AM WOOD ROOM SUPERVISOR Treatment [facility] Radiation Oncology [address] [place] [address] Social History Tobacco Use Types Packs/Day Years Used Date Smoking Tobacco: Never Smokeless Tobacco: Never Alcohol Use Standard Drinks/Week Comments No 0 (1 standard drink = 0.6 oz pur e alcohol) Comments Unknown Sex and Gender Information Value Date Recorded Sex Assigned at Not on file Legal Sex Female 12:21 PM WOOD ROOM SUPERVISOR Gender Identity Not on file Sexual Orientation Not on file documented as of this encounter Plan of Treatment Not on file documented as of this encounter Visit Diagnoses Not on filedocumented in this encounter Care Teams Cone Machine Operator Relationship Specialty Start Date End Date Francisco Long MD PCP - General 02/23/17 05/15/22 Neil Ag MD PhD [address] [place] [address] Radiation Oncologist Radiation Oncology 12/17/18 [place] [address] [id number] Referring Physician General Surgery 12/17/18 [place] [address] [address] [address] Medical Oncologist/Leak Detection Engineer Medical Oncology 12/17/18 documented as of this encounter
--- OUTSIDE RECORDS SUMMARY | 2024-11-16 15:42 | XMS_ITS | Encounter Summary ---
Author Organization [facility] Healthcare Address [address] [place] [address] Care Team Providers Care Bin Filler Name Role Phone Francisco Long MD Primary Care Provider [phone] Neil Ag MD PhD Unavailable [phone] Ita estrada MD Unavailable Caron Mohan MD Unavailable Encounter Details Date Type Department Care Team (Late st Contact Info) Description 01/29/2019 10:30 AM RUG SCRATCHER Treatment [facility] Radiation Oncology [address] [place] [address] Social History Tobacco Use Types Packs/Day Years Used Date Smoking Tobacco: Never Smokeless Tobacco: Never Alcohol Use Standard Drinks/Week Comments No 0 (1 standard drink = 0.6 oz pur e alcohol) Comments Unknown Sex and Gender Information Value Date Recorded Sex Assigned at Not on file Legal Sex Female 12:21 PM RUG SCRATCHER Gender Identity Not on file Sexual Orientation Not on file documented as of this encounter Nursing Notes * Molly Gupta RN - 01/29/2019 10:30 AM CST Mild edema to lt. Breast, very faint hyperpigmentation of skin. SCRATCHER documented in this encounter Plan of Treatment Not on file documented as of this encounter Visit Diagnoses Not on filedocumented in this encounter Care Teams Bin Filler Relationship Specialty Start Date End Date Francisco Long MD PCP - General 02/23/17 05/15/22 Neil Ag MD PhD [address] [place] [address] Radiation Oncologist Radiation Oncology 12/17/18 [place] [address] [facility] [address] [place] [address] Referring Physician General Surgery 12/17/18 [place] [address] [facility] [address] [place] [address] Medical Oncologist/Crna Medical Oncology 12/17/18 documented as of this encounter
--- OUTSIDE RECORDS SUMMARY | 2024-11-16 15:42 | XMS_ITS | Encounter Summary ---
Author Organization [facility] Address [address] [facility] [address] [place] [address] Care Team Providers Care Order Processing Clerk Name Role Phone Francisco Long MD Primary Care Provider Neil Ag MD PhD Unavailable [phone] Ita Vazquez MD Unavailable Caron Mohan MD Unavailable Reason for Visit * Reason Comments Hypertension Hyperlipidemia Encounter Details Date Type Department Care Team (Late st Contact Info) Description 03/17/2019 9:00 AM CDT Office Visit [facility] [address] [facility] [address] [place] [address] Francisco Long MD [address] [place] [address] [address] [place] [address] Pre-diabetes (Primary Dx); BMI 30.0-30.9,adult; [...] on file Legal Sex Female 12:21 PM HEARINGS REPORTER Gender Identity Not on file Sexual [...] 03/17/2019 added in this encounter Care Teams Order Processing Clerk Relationship Specialty Start Date End Date Francisco Long MD PCP - General 02/23/17 05/15/22 Neil Ag MD PhD [address] [place] [address] Radiation Oncologist Radiation Oncology 12/17/18 [place] [address] [facility] [address] [place], [place] [address] Referring Physician General Surgery 12/17/18 [place] [address] [facility] [address] [place] [address] Medical Oncologist/Triage Rn Medical Oncology 12/17/18 documented as of this encounter
--- OUTSIDE RECORDS SUMMARY | 2024-11-16 15:42 | XMS_ITS | Encounter Summary ---
Author Organization [facility] Healthcare Address [address] [place] [address] Care Team Providers Care Manufacturing Manager Name Role Phone Francisco Long MD Primary Care Provider [phone] Neil Ag MD PhD Unavailable [phone] Ita estrada MD Unavailable Caron Mohan MD [...] on file Legal Sex Female 12:21 PM HOLLOCK MAKER Gender Identity Not on file Sexual Orientation Not on file documented as of this encounter Plan of Treatment Not on file documented as of this encounter Procedures Procedure Name Priority Date/Time Associated Diagnosis Comments RAD ONC ARIA SESSION SUMMARY 01/28/2019 10:38 AM HOLLOCK MAKER documented in this encounter Results * RAD ONC ARIA SESSION SUMMARY (01/28/2019 10:38 AM HOLLOCK MAKER) Course Name C1 L BRS [place] 2019 ARIA Course Plan Date 12/30/2018 12:25 PM ARIA Elapsed Days 20 ARIA Treatment Start Date 01/08/2019 ARIA Treatment Site LT BRST ARIA Dose Given To Date (cGy) 3,990 ARIA Session Dosage Given (cGy) 266 ARIA Plan ID LT BRST:1 ARIA Fractions Treated 15 ARIA Prescribed Dose Per Fraction (cGy) 266 ARIA Prescribed Total Dose (cGy) 4,256 ARIA 01/28/2019 10:3 8 AM HOLLOCK MAKER us Not In File Miscellaneous RADIATION ONCOLOGY ORD ERABLES Final Result ARIA documented in this encounter Visit Diagnoses Not on filedocumented in this encounter Care Teams Manufacturing Manager Relationship Specialty Start Date End Date Francisco Long MD PCP - General 02/23/17 05/15/22 Neil Ag MD PhD [address] [place] [address] Radiation Oncologist Radiation Oncology 12/17/18 [place] [address] [facility] [address] [place] [address] Referring Physician General Surgery 12/17/18 [place] [address] [facility] [address] [place] [address] Medical Oncologist/Small Engine Specialist Medical Oncology 12/17/18 documented as of this encounter
--- OUTSIDE RECORDS SUMMARY | 2024-11-16 15:42 | XMS_ITS | Encounter Summary ---
Author Organization [facility] Address [address] [facility] [address] [place] [address] Care Team Providers Care Long Goods Drier Name Role Phone Francisco Long MD Primary Care Provider Neil Ag MD PhD Unavailable [phone] Ita Vazquez MD Unavailable Caron Mohan MD Unavailable Encounter Details Date Type Department Care Team (Late st Contact Info) Description 03/05/2019 Orders Only [place] [facility] [address] [facility] [address] [place] [address] Francisco Long MD [address] [place] [address] [address] [place] [address] Social History Tobacco Use Types Packs/Day Years Used Date Smoking Tobacco: Never Smokeless Tobacco: Never Alcohol Use Standard Drinks/Week Comments No 0 (1 standard drink = 0.6 oz pur e alcohol) Comments Unknown Sex and Gender Information Value Date Recorded Sex Assigned at Not on file Legal Sex Female 12:21 PM HOME ADVISOR Gender Identity Not on file Sexual [...] approximately 13% higher for people identified as -[place]. eGFR NON-AFR. SERBIAN 73 > OR = 60 mL/min/1 .73m2 [...] ?Site ID: [place] ?Name: Jesika Matthew ?Address: [facility] [place] [id number] ?Director: Alex Garcia D.O., MPH Francisco Long MD LAB BLOOD ORDERABLES Final Res ult Performing Organization Address [facility] Co de Phone Number YENNY [...] ?Site ID: [place] ?Name: Jesika Matthew ?Address: [facility] [place] [id number] ?Director: Alex Garcia D.O. MPH Francisco Long MD LAB BLOOD ORDERABLES Final Res ult Performing Organization Address [facility] Co de Phone Number YENNY Carrillo * CHOL/HDLC RATIO (03/05/2019 9:14 AM CDT) Chol/HDL ratio 3.7 <5.0 (calc) JESIKA RAMON 03/05/2019 9:14 AM CDT 03/05/2019 9:18 AM CDT Narrative Resulting Agency Comment Performing Organization Information: ?Site ID: [place] ?Name: Jesika Matthew ?Address: [facility] [place] [phone] ?Director: Alex Garcia D.O., MPH us Francisco Long MD LAB BLOOD ORDERABLES Final Res ult Performing Organization Address [facility] de Phone Number YENNY Carrillo * [...] LDL-C. Harry YUAN et al. RANDALL. 2013;310(19): 0029-0184 (http://education.Printland/faq/VZZ514) 03/05/2019 9:14 AM CDT 03/05/2019 9:18 AM CDT Narrative Resulting Agency Comment Performing Organization Information: ?Site ID: Y[place]NY ?Name: Jesika Matthew ?Address: [facility] [place] [id number] ?Director: Alex Garcia D.O., MPH us Francisco Long MD LAB BLOOD ORDERABLES Final Res ult Performing Organization Address [facility] de Phone Number YENNY Carrillo * (ABNORMAL) Triglycerides (03/05/2019 9:14 AM CDT) Triglycerides 160(H) <150 mg/dL JESIKA RAMON 03/05/2019 9:14 AM CDT 03/05/2019 9:18 AM CDT Narrative Resulting Agency Comment Performing Organization Information: ?Site ID: YENNY ?Name: Jesika Matthew ?Address: [facility] [place] [id number] ?Director: Alex Garcia D.O., MPH us Francisco Long MD LAB BLOOD ORDERABLES Final Res ult Performing Organization Address [facility] Co de Phone Number [facility] [place] * Cholesterol, HDL (03/05/2019 9:14 AM CDT) HDL 65 >50 mg/dL [facility] [place] 03/05/2019 9:14 AM CDT 03/05/2019 9:18 AM CDT Narrative Resulting Agency Comment Performing Organization Information: ?Site ID: [place] ?Name: [facility] ?Address: [facility] [place] [phone] ?Director: Alex Garcia D.O., MPH us Francisco Long MD LAB BLOOD ORDERABLES Final Res ult Performing Organization Address [facility] de Phone Number [facility] [place] * (ABNORMAL) Cholesterol, total (03/05/2019 9:14 AM CDT) Cholesterol 243(H) <200 mg/dL [facility] [place] 03/05/2019 9:14 AM CDT 03/05/2019 9:18 AM CDT Narrative Resulting Agency Comment Performing Organization Information: ?Site ID: [place] ?Name: [facility] ?Address: [facility] [place] [id number] ?Director: Alex Garcia D.O. MPH Francisco Long MD LAB BLOOD ORDERABLES Final Res ult Performing Organization Address [facility] Co de Phone Number JESIKA [...] ?Site ID: YENNY ?Name: [facility] ?Address: [address] [place] [id number] ?Director: Alex Garcia D.O., MPH Francisco Long MD LAB BLOOD ORDERABLES Final Res ult [facility] [place] documented in this encounter Visit Diagnoses Not on filedocumented in this encounter Care Teams Long Goods Drier Relationship Specialty Start Date End Date Francisco Long MD PCP - General 02/23/17 05/15/22 Neil Ag MD PhD [address] [place] [address] Radiation Oncologist Radiation Oncology 12/17/18 [place] [address] [place] [address] Referring Physician General Surgery 12/17/18 [place] [address] [place] [address] Medical Oncologist/Chief Building Inspector Medical Oncology 12/17/18 documented as of this encounter
--- OUTSIDE RECORDS SUMMARY | 2024-11-16 15:42 | XMS_ITS | Encounter Summary ---
Author Organization [facility] Address [address] [place] [address] Care Team Providers Care Tank Welder Name Role Phone Francisco Long MD Primary Care Provider [phone] Neil Ag MD PhD Unavailable [phone] Ita estrada MD Unavailable Caron Mohan MD [...] 1 [place] [address] [address] Phone: tel: fax: [address] [phone] Referral ID Status Reason Start Date Expiration Date Visits Re quested Visits Authorized [id number] Closed 02/14/2019 08/25/2020 1 1 Reason for Visit * Diagnostic Imaging (Routine) - Closed Specialty Diagnoses / Procedures Referred By Halima garcia Referred To Contact Diagnoses Menopausal and perimenopausal disorder Malignant neoplasm of upper-inner quadrant of left female breast, 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 Procedures Dexa Axial Skeleton Bone Density 1 [place] 2 [place] [address] [facility] [address] [place] [address] Phone: tel: fax: [address] [phone] Referral ID Status Reason Start Date Expiration Date Visits Re quested Visits Authorized [id number] Closed 02/14/2019 08/25/2020 1 1 Encounter Details Date Type Department Care Team (Latest Contact Info) Description 03/11/2019 9:17 AM CDT - 03/11/2019 11:59 PM CDT Hospital Encounter [facility] [address] [place] [address] Caron Mohan MD [address] [facility] [address] [facility] [address] [place] [address] Menopausal and perimenopausal disorder; Malignant neoplasm of [...] on file Legal Sex Female 12:21 PM ORACLE DRM CONSULTANT Gender Identity Not on file Sexual [...] status documented in this encounter Care Teams Tank Welder Relationship Specialty Start Date End Date Francisco Long MD PCP - General 02/23/17 05/15/22 Neil Ag MD PhD 6 [place] [address] Radiation Oncologist Radiation Oncology 12/17/18 [place] [address] [facility] [address] [place] [address] Referring Physician General Surgery 12/17/18 [place] [address] [address] [facility] [address] [place] [address] Medical Oncologist/Paster Hat Lining Medical Oncology 12/17/18 documented as of this encounter
--- OUTSIDE RECORDS SUMMARY | 2024-11-16 15:43 | XMS_ITS | Encounter Summary ---
Author Organization [facility] Healthcare Address [address] [place] [address] Care Team Providers Care Job Training Supervisor Name Role Phone Francisco Long MD Primary Care Provider [phone] Neil Ag MD PhD Unavailable [phone] Ita estrada MD Unavailable Caron Mohan MD Unavailable [phone] Encounter Details Date Type Department Care Team [...] on file Legal Sex Female 12:21 PM FARMWORKER FIELD CROP Gender Identity Not on file Sexual Orientation Not on file documented as of this encounter Plan of Treatment Not on file documented as of this encounter Procedures Procedure Name Priority Date/Time Associated Diagnosis Comments RAD ONC ARIA SESSION SUMMARY 01/23/2019 10:30 AM FARMWORKER FIELD CROP documented in this encounter Results * RAD ONC ARIA SESSION SUMMARY (01/23/2019 10:30 AM FARMWORKER FIELD CROP) Course Name C1 L BRS SD 2019 ARIA Course Plan Date 12/30/2018 12:25 PM ARIA Elapsed Days 15 ARIA Treatment Start Date 01/08/2019 ARIA Treatment Site LT BRST ARIA Dose Given To Date (cGy) 3,192 ARIA Session Dosage Given (cGy) 266 ARIA Plan ID LT BRST:1 ARIA Fractions Treated 12 ARIA Prescribed Dose Per Fraction (cGy) 266 ARIA Prescribed Total Dose (cGy) 4,256 ARIA 01/23/2019 10:3 0 AM FARMWORKER FIELD CROP us Not In File Miscellaneous RADIATION ONCOLOGY ORD ERABLES Final Result ARIA documented in this encounter Visit Diagnoses Not on filedocumented in this encounter Care Teams Job Training Supervisor Relationship Specialty Start Date End Date Francisco Long MD PCP - General 02/23/17 05/15/22 Neil Ag MD PhD [address] [place] [address] Radiation Oncologist Radiation Oncology 12/17/18 [place] [address] [facility] [address] [place] [address] Referring Physician General Surgery 12/17/18 [place] [address] [facility] [address] [place] [address] Medical Oncologist/Cork Wirer Medical Oncology 12/17/18 documented as of this encounter
--- OUTSIDE RECORDS SUMMARY | 2024-11-16 15:43 | XMS_ITS | Encounter Summary ---
Author Organization [facility] Healthcare Address [address] [place] [address] Care Team Providers Care Supercharger Mechanic Name Role Phone Francisco Long MD Primary Care Provider [phone] Neil Ag MD PhD Unavailable [phone] Ita Vazquez MD Unavailable Caron Mohan MD Unavailable Encounter Details Date Type Department Care Team (Late st Contact Info) Description 01/22/2019 10:30 AM RESOURCE DEVELOPMENT MANAGER Treatment [facility] Radiation Oncology [address] [place] [address] Social History Tobacco Use Types Packs/Day Years Used Date Smoking Tobacco: Never Smokeless Tobacco: Never Alcohol Use Standard Drinks/Week Comments No 0 (1 standard drink = 0.6 oz pur e alcohol) Comments Unknown Sex and Gender Information Value Date Recorded Sex Assigned at Not on file Legal Sex Female 12:21 PM RESOURCE DEVELOPMENT MANAGER Gender Identity Not on file Sexual Orientation Not on file documented as of this encounter Plan of Treatment Not on file documented as of this encounter Visit Diagnoses Not on filedocumented in this encounter Care Teams Supercharger Mechanic Relationship Specialty Start Date End Date Francisco Long MD PCP - General 02/23/17 05/15/22 Neil Ag MD PhD [address] [place] [address] Radiation Oncologist Radiation Oncology 12/17/18 [place] [address] [id number] Referring Physician General Surgery 12/17/18 [place] [address] [address] [address] Medical Oncologist/Asphalt Worker Medical Oncology 12/17/18 documented as of this encounter
--- OUTSIDE RECORDS SUMMARY | 2024-11-16 15:43 | XMS_ITS | Encounter Summary ---
Author Organization [facility] Healthcare Address [address] [place] [address] Care Team Providers Care Ict Support Engineer Name Role Phone Francisco Long MD Primary Care Provider [phone] Neil Ag MD PhD Unavailable [phone] Ita Vazquez MD Unavailable Caron Mohan MD Unavailable [phone] Encounter Details Date Type Department Care Team (Late st Contact Info) Description 01/23/2019 10:30 AM SHEAR HELPER Treatment [facility] Radiation Oncology [address] [place] [address] Social History Tobacco Use Types Packs/Day Years Used Date Smoking Tobacco: Never Smokeless Tobacco: Never Alcohol Use Standard Drinks/Week Comments No 0 (1 standard drink = 0.6 oz pur e alcohol) Comments Unknown Sex and Gender Information Value Date Recorded Sex Assigned at Not on file Legal Sex Female 12:21 PM SHEAR HELPER Gender Identity Not on file Sexual Orientation Not on file documented as of this encounter Plan of Treatment Not on file documented as of this encounter Visit Diagnoses Not on filedocumented in this encounter Care Teams Ict Support Engineer Relationship Specialty Start Date End Date Francisco Long MD PCP - General 02/23/17 05/15/22 Neil Ag MD PhD 6 [place] [address] Radiation Oncologist Radiation Oncology 12/17/18 [place] [address] [id number] Referring Physician General Surgery 12/17/18 [place] [address] [address] Medical Oncologist/Rn Traveling Medical Oncology 12/17/18 documented as of this encounter
--- OUTSIDE RECORDS SUMMARY | 2024-11-16 15:43 | XMS_ITS | Encounter Summary ---
Author Organization [facility] Healthcare Address [address] [place] [address] Care Team Providers Care Elevator Service Mechanic Name Role Phone Francisco Long MD Primary Care Provider [phone] Neil Ag MD PhD Unavailable [phone] Ita estrada MD Unavailable Caron Mohan MD Unavailable [phone] Encounter Details Date Type Department Care Team (Late st Contact Info) Description 01/22/2019 O[facility] Radiation Oncology [address] [place] [address] Molly Gupta RN Social History Tobacco Use Types Packs/Day Years Used Date Smoking Tobacco: Never Smokeless Tobacco: Never Alcohol Use Standard Drinks/Week Comments No 0 (1 standard drink = 0.6 oz pur e alcohol) Comments Unknown Sex and Gender Information Value Date Recorded Sex Assigned at Not on file Legal Sex Female 12:21 PM HEEL GUMMER Gender Identity Not on file Sexual Orientation Not on file documented as of this encounter Last Filed Vital Signs Vital Sign Reading Time Taken Comments Blood Pressure 124/62 01/22/2019 10:45 AM HEEL GUMMER Pulse 86 01/22/2019 10:45 AM HEEL GUMMER Temperature 36.2 ??C (97.2 ??F) 01/22/2019 10:[address] Respiratory Rate 18 01/22/2019 10:45 AM HEEL GUMMER Oxygen Saturation - - Inhaled Oxygen Concentration - - Weight 84.8 kg (187 lb) 01/22/2019 10:45 AM HEEL GUMMER Height - - Body Mass Index 29.73 12/17/2018 2:50 PM HEEL GUMMER documented in this encounter Progress Notes * [...] IA (pT1b, pN1mi(sn), cM0, G2, ER: Positive, [place]: Positive, HER2: Negative) - Signed by Neil [...] pain that requires changes in pain management. GUMMER documented in this encounter Nursing Notes * Molly Gupta RN - 01/22/2019 10:34 AM CST No skin changes. GUMMER documented in this encounter Plan of Treatment Not on file documented as of this encounter Visit Diagnoses Not on filedocumented in this encounter Care Teams Elevator Service Mechanic Relationship Specialty Start Date End Date Francisco Long MD PCP - General 02/23/17 05/15/22 Neil Ag MD PhD [address] [place] [address] Radiation Oncologist Radiation Oncology 12/17/18 [place] [address] [address] [facility] [address] [place] [id number] Referring Physician General Surgery 12/17/18 [place] [address] [address] [facility] [address] [place] [address] Medical Oncologist/Tracing Lathe Set Up Operator Medical Oncology 12/17/18 documented as of this encounter
--- OUTSIDE RECORDS SUMMARY | 2024-11-16 15:43 | XMS_ITS | Encounter Summary ---
Author Organization [facility] Healthcare Address [address] [place] [address] Care Team Providers Care Wharf Hand Name Role Phone Francisco Long MD Primary Care Provider [phone] Neil Ag MD PhD Unavailable [phone] Ita estrada MD Unavailable Caron Mohan MD [...] on file Legal Sex Female 12:21 PM STEAM BONE PRESS TENDER Gender Identity Not on file Sexual Orientation Not on file documented as of this encounter Plan of Treatment Not on file documented as of this encounter Procedures Procedure Name Priority Date/Time Associated Diagnosis Comments RAD ONC ARIA SESSION SUMMARY 01/22/2019 10:40 AM STEAM BONE PRESS TENDER documented in this encounter Results * RAD ONC ARIA SESSION SUMMARY (01/22/2019 10:40 AM STEAM BONE PRESS TENDER) Course Name C1 L BRS [place] 2019 ARIA Course Plan Date 12/30/2018 12:25 PM ARIA Elapsed Days 14 ARIA Treatment Start Date 01/08/2019 ARIA Treatment Site LT BRST ARIA Dose Given To Date (cGy) 2,926 ARIA Session Dosage Given (cGy) 266 ARIA Plan ID LT BRST:1 ARIA Fractions Treated 11 ARIA Prescribed Dose Per Fraction (cGy) 266 ARIA Prescribed Total Dose (cGy) 4,256 ARIA 01/22/2019 10:4 0 AM STEAM BONE PRESS TENDER us Not In File Miscellaneous RADIATION ONCOLOGY ORD ERABLES Final Result ARIA documented in this encounter Visit Diagnoses Not on filedocumented in this encounter Care Teams Wharf Hand Relationship Specialty Start Date End Date Francisco Long MD PCP - General 02/23/17 05/15/22 Neil Ag MD PhD 6 [place] [address] Radiation Oncologist Radiation Oncology 12/17/18 [place] [address] [facility] [address] [place] [address] Referring Physician General Surgery 12/17/18 [place] [address] [facility] [address] [place] [address] Medical Oncologist/Poultry Raiser Medical Oncology 12/17/18 documented as of this encounter
--- OUTSIDE RECORDS SUMMARY | 2024-11-16 15:44 | XMS_ITS | Encounter Summary ---
Author Organization [facility] Healthcare Address [address] [place] [address] Care Team Providers Care Rate Reviewer Name Role Phone Francisco Long MD Primary Care Provider [phone] Neil Ag MD PhD Unavailable [phone] Ita Vazquez MD Unavailable Caron Mohan MD Unavailable [phone] Encounter Details Date Type Department Care Team (Late st Contact Info) Description 01/20/2019 10:30 AM LIP OF SHANK CUTTER Treatment [facility] Radiation Oncology [address] [place] [address] Social History Tobacco Use Types Packs/Day Years Used Date Smoking Tobacco: Never Smokeless Tobacco: Never Alcohol Use Standard Drinks/Week Comments No 0 (1 standard drink = 0.6 oz pur e alcohol) Comments Unknown Sex and Gender Information Value Date Recorded Sex Assigned at Not on file Legal Sex Female 12:21 PM LIP OF SHANK CUTTER Gender Identity Not on file Sexual Orientation Not on file documented as of this encounter Plan of Treatment Not on file documented as of this encounter Visit Diagnoses Not on filedocumented in this encounter Care Teams Rate Reviewer Relationship Specialty Start Date End Date Francisco Long MD PCP - General 02/23/17 05/15/22 Neil Ag MD PhD [address] [place] [address] Radiation Oncologist Radiation Oncology 12/17/18 [place] [address] [id number] Referring Physician General Surgery 12/17/18 [place] [address] [address] Medical Oncologist/Mental Health Unit Lead Psychologist Medical Oncology 12/17/18 documented as of this encounter
--- OUTSIDE RECORDS SUMMARY | 2024-11-16 15:44 | XMS_ITS | Encounter Summary ---
Author Organization [facility] Healthcare Address [address] [place] [address] Care Team Providers Care Cuff Cutter Name Role Phone Francisco Long MD Primary Care Provider [phone] Neil Ag MD PhD Unavailable [phone] Ita Vazquez MD Unavailable Caron Mohan MD Unavailable Encounter Details Date Type Department Care Team (Late st Contact Info) Description 01/21/2019 10:30 AM CONDITIONING COACH Treatment [facility] Radiation Oncology [address] [place] [address] Social History Tobacco Use Types Packs/Day Years Used Date Smoking Tobacco: Never Smokeless Tobacco: Never Alcohol Use Standard Drinks/Week Comments No 0 (1 standard drink = 0.6 oz pur e alcohol) Comments Unknown Sex and Gender Information Value Date Recorded Sex Assigned at Not on file Legal Sex Female 12:21 PM CONDITIONING COACH Gender Identity Not on file Sexual Orientation Not on file documented as of this encounter Plan of Treatment Not on file documented as of this encounter Visit Diagnoses Not on filedocumented in this encounter Care Teams Cuff Cutter Relationship Specialty Start Date End Date Francisco Long MD PCP - General 02/23/17 05/15/22 Neil Ag MD PhD [address] [place] [address] Radiation Oncologist Radiation Oncology 12/17/18 [place] [address] [id number] Referring Physician General Surgery 12/17/18 [place] [address] [address] [address] Medical Oncologist/Tin Can Feeder Medical Oncology 12/17/18 documented as of this encounter
--- OUTSIDE RECORDS SUMMARY | 2024-11-16 15:44 | XMS_ITS | Encounter Summary ---
Author Organization [facility] Healthcare Address [address] [place] [address] Care Team Providers Care Shipping Receiving Manager Name Role Phone Francisco Long MD Primary Care Provider Neil Ag MD PhD Unavailable [phone] Ita Vazquez MD Unavailable Caron Mohan MD Unavailable Encounter Details Date Type Department Care Team (Late st Contact Info) Description 01/15/2019 OTV [facility] Radiation Oncology [address] [place] [address] Caesar Thao MD [address] [facility] [address] [place] [address] Social History Tobacco Use Types Packs/Day Years Used Date Smoking Tobacco: Never Smokeless Tobacco: Never Alcohol Use Standard Drinks/Week Comments No 0 (1 standard drink = 0.6 oz pur e alcohol) Comments Unknown Sex and Gender Information Value Date Recorded Sex Assigned at Not on file Legal Sex Female 12:21 PM BUSINESS CONTROL MANAGER Gender Identity Not on file Sexual Orientation Not on file documented as of this encounter Last Filed Vital Signs Vital Sign Reading Time Taken Comments Blood Pressure 169/60 01/15/2019 9:58 AM BUSINESS CONTROL MANAGER Pulse 90 01/15/2019 9:58 AM BUSINESS CONTROL MANAGER Temperature 36.6 ??C (97.9 ??F) 01/15/2019 9:58 AM CS T Respiratory Rate 18 01/15/2019 9:58 AM BUSINESS CONTROL MANAGER Oxygen Saturation - - Inhaled Oxygen Concentration - - Weight 84.8 kg (187 lb) 01/15/2019 9:58 AM BUSINESS CONTROL MANAGER Height - - Body Mass Index 29.73 12/17/2018 2:50 PM BUSINESS CONTROL MANAGER documented in this encounter Progress Notes [...] pain that requires changes in pain management. NESS CONTROL MANAGER documented in this encounter Plan of Treatment Not on file documented as of this encounter Visit Diagnoses Not on filedocumented in this encounter Care Teams Shipping Receiving Manager Relationship Specialty Start Date End Date Francisco Long MD PCP - General 02/23/17 05/15/22 Neil Ag MD PhD [address] [place] [address] Radiation Oncologist Radiation Oncology 12/17/18 [place] [address] [address] [facility] [address] [place], [place] [id number] Referring Physician General Surgery 12/17/18 [place] [address] [address] [facility] [address] [place], [place] [id number] Medical Oncologist/Mineral Surveying Technician Medical Oncology 12/17/18 documented as of this encounter
--- OUTSIDE RECORDS SUMMARY | 2024-11-16 15:44 | XMS_ITS | Encounter Summary ---
Author Organization [facility] Healthcare Address [address] [place] [address] Care Team Providers Care Hair Mixer Name Role Phone Francisco Long MD Primary Care Provider [phone] Neil Ag MD PhD Unavailable [phone] Ita Vazquez MD Unavailable Caron Mohan MD Unavailable Encounter Details Date Type Department Care Team (Late st Contact Info) Description 01/16/2019 10:30 AM EMBOSSING UNIT OPERATOR Treatment [facility] Radiation Oncology [address] [place] [address] Social History Tobacco Use Types Packs/Day Years Used Date Smoking Tobacco: Never Smokeless Tobacco: Never Alcohol Use Standard Drinks/Week Comments No 0 (1 standard drink = 0.6 oz pur e alcohol) Comments Unknown Sex and Gender Information Value Date Recorded Sex Assigned at Not on file Legal Sex Female 12:21 PM EMBOSSING UNIT OPERATOR Gender Identity Not on file Sexual Orientation Not on file documented as of this encounter Plan of Treatment Not on file documented as of this encounter Visit Diagnoses Not on filedocumented in this encounter Care Teams Hair Mixer Relationship Specialty Start Date End Date Francisco Long MD PCP - General 02/23/17 05/15/22 Neil Ag MD PhD [address] [place] [address] Radiation Oncologist Radiation Oncology 12/17/18 [place] [address] [id number] Referring Physician General Surgery 12/17/18 [place] [address] [address] [address] Medical Oncologist/Survey Interviewer Medical Oncology 12/17/18 documented as of this encounter
--- OUTSIDE RECORDS SUMMARY | 2024-11-16 15:44 | XMS_ITS | Encounter Summary ---
Author Organization [facility] Healthcare Address [address] [place] [address] Care Team Providers Care Electronic Scale Assembler And Tester Name Role Phone Francisco Long MD Primary Care Provider [phone] Neil Ag MD PhD Unavailable + [phone] Ita estrada MD Unavailable Caron Mohan MD [...] file Legal Sex Female 12:21 PM DIRECTOR DECISION SUPPORT Gender Identity Not on file Sexual Orientation Not on file documented as of this encounter Plan of Treatment Not on file documented as of this encounter Procedures Procedure Name Priority Date/Time Associated Diagnosis Comments RAD ONC ARIA SESSION SUMMARY 01/16/2019 10:21 AM DIRECTOR DECISION SUPPORT documented in this encounter Results * RAD ONC ARIA SESSION SUMMARY (01/16/2019 10:21 AM DIRECTOR DECISION SUPPORT) Course Name C1 L BRS NM 2019 ARIA Course Plan Date 12/30/2018 12:25 PM ARIA Elapsed Days 8 ARIA Treatment Start Date 01/08/2019 ARIA Treatment Site LT BRST ARIA Dose Given To Date (cGy) 1,862 ARIA Session Dosage Given (cGy) 266 ARIA Plan ID LT BRST:1 ARIA Fractions Treated 7 ARIA Prescribed Dose Per Fraction (cGy) 266 ARIA Prescribed Total Dose (cGy) 4,256 ARIA 01/16/2019 10:2 1 AM DIRECTOR DECISION SUPPORT us Not In File Miscellaneous RADIATION ONCOLOGY ORD ERABLES Final Result ARIA documented in this encounter Visit Diagnoses Not on filedocumented in this encounter Care Teams Electronic Scale Assembler And Tester Relationship Specialty Start Date End Date Francisco Long MD PCP - General 02/23/17 05/15/22 Neil Ag MD PhD [address] [place] [address] Radiation Oncologist Radiation Oncology 12/17/18 [place] [address] [facility] [address] [place] [address] Referring Physician General Surgery 12/17/18 [place] [address] [facility] [address] [place] [address] Medical Oncologist/Men'S Leather Dress Belt Maker Medical Oncology 12/17/18 documented as of this encounter
--- OUTSIDE RECORDS SUMMARY | 2024-11-16 15:44 | XMS_ITS | Encounter Summary ---
Author Organization [facility] Healthcare Address [address] [place] [address] Care Team Providers Care Maintenance Mechanic 2Nd Shift Name Role Phone Francisco Long MD Primary Care Provider [phone] Neil Ag MD PhD Unavailable [phone] Ita Vazquez MD Unavailable Caron Mohan MD Unavailable [phone] Encounter Details Date Type Department Care Team (Late st Contact Info) Description 01/17/2019 10:30 AM CONTROL AND RECOVERY SPECIAL TACTICS Treatment [facility] Radiation Oncology [address] [place] [address] Social History Tobacco Use Types Packs/Day Years Used Date Smoking Tobacco: Never Smokeless Tobacco: Never Alcohol Use Standard Drinks/Week Comments No 0 (1 standard drink = 0.6 oz pur e alcohol) Comments Unknown Sex and Gender Information Value Date Recorded Sex Assigned at Not on file Legal Sex Female 12:21 PM CONTROL AND RECOVERY SPECIAL TACTICS Gender Identity Not on file Sexual Orientation Not on file documented as of this encounter Plan of Treatment Not on file documented as of this encounter Visit Diagnoses Not on filedocumented in this encounter Care Teams Maintenance Mechanic 2Nd Shift Relationship Specialty Start Date End Date Francisco Long MD PCP - General 02/23/17 05/15/22 Neil Ag MD PhD [address] [place] [address] Radiation Oncologist Radiation Oncology 12/17/18 [place] [address] [id number] Referring Physician General Surgery 12/17/18 [place] [address] [address] Medical Oncologist/Fitness Instructor Medical Oncology 12/17/18 documented as of this encounter
--- OUTSIDE RECORDS SUMMARY | 2024-11-16 15:44 | XMS_ITS | Encounter Summary ---
Author Organization [facility] Healthcare Address [address] [place] [address] Care Team Providers Care Knitted Cloth Examiner Name Role Phone Francisco Long MD Primary Care Provider [phone] Neil Ag MD PhD Unavailable + [phone] Ita estrada MD Unavailable Caron Mohan MD [...] on file Legal Sex Female 12:21 PM RABBIT FANCIER Gender Identity Not on file Sexual Orientation Not on file documented as of this encounter Plan of Treatment Not on file documented as of this encounter Procedures Procedure Name Priority Date/Time Associated Diagnosis Comments RAD ONC ARIA SESSION SUMMARY 01/17/2019 10:35 AM RABBIT FANCIER documented in this encounter Results * RAD ONC ARIA SESSION SUMMARY (01/17/2019 10:35 AM RABBIT FANCIER) Course Name C1 L BRS SC 2019 [...] (cGy) 4,256 ARIA 01/17/2019 10:3 5 AM RABBIT FANCIER us Not In File Miscellaneous RADIATION ONCOLOGY ORD ERABLES Final Result ARIA documented in this encounter Visit Diagnoses Not on filedocumented in this encounter Care Teams Knitted Cloth Examiner Relationship Specialty Start Date End Date Francisco Long MD PCP - General 02/23/17 05/15/22 Neil Ag MD PhD [address] [place] [address] Radiation Oncologist Radiation Oncology 12/17/18 [place] [address] [facility] [address] [place] [address] Referring Physician General Surgery 12/17/18 [place] [address] [facility] [address] [place] [address] Medical Oncologist/Residential Coordinator Medical Oncology 12/17/18 documented as of this encounter
--- OUTSIDE RECORDS SUMMARY | 2024-11-16 15:44 | XMS_ITS | Encounter Summary ---
Author Organization [facility] Healthcare Address [address] [place] [address] Care Team Providers Care Sheet Metal Assembler And Riveter Name Role Phone Francisco Long MD Primary Care Provider [phone] Neil Ag MD PhD Unavailable [phone] Ita estrada MD Unavailable Caron Mohan MD [...] file Legal Sex Female 12:21 PM HEEL ATTACHER WOOD Gender Identity Not on file Sexual Orientation Not on file documented as of this encounter Plan of Treatment Not on file documented as of this encounter Procedures Procedure Name Priority Date/Time Associated Diagnosis Comments RAD ONC ARIA SESSION SUMMARY 01/20/2019 10:17 AM HEEL ATTACHER WOOD documented in this encounter Results * RAD ONC ARIA SESSION SUMMARY (01/20/2019 10:17 AM HEEL ATTACHER WOOD) Course Name C1 L BRS SD 2019 [...] (cGy) 4,256 ARIA 01/20/2019 10:1 7 AM HEEL ATTACHER WOOD us Not In File Miscellaneous RADIATION ONCOLOGY ORD ERABLES Final Result ARIA documented in this encounter Visit Diagnoses Not on filedocumented in this encounter Care Teams Sheet Metal Assembler And Riveter Relationship Specialty Start Date End Date Francisco Long MD PCP - General 02/23/17 05/15/22 Neil Ag MD PhD [address] [place] [address] Radiation Oncologist Radiation Oncology 12/17/18 [place] [address] [facility] [address] [place] [address] Referring Physician General Surgery 12/17/18 [place] [address] [facility] [address] [place] [address] Medical Oncologist/Ciso Medical Oncology 12/17/18 documented as of this encounter
--- OUTSIDE RECORDS SUMMARY | 2024-11-16 15:45 | XMS_ITS | Encounter Summary ---
Author Organization [facility] Healthcare Address [address] [place] [address] Care Team Providers Care Beer Merchant Name Role Phone Francisco Long MD Primary Care Provider [phone] Neil Ag MD PhD Unavailable [phone] Ita Vazquez MD Unavailable Caron Mohan MD Unavailable Encounter Details Date Type Department Care Team (Late st Contact Info) Description 01/14/2019 10:30 AM ACCOUNTS RECEIVABLE MANAGER Treatment [facility] Radiation Oncology [address] [place] [address] Social History Tobacco Use Types Packs/Day Years Used Date Smoking Tobacco: Never Smokeless Tobacco: Never Alcohol Use Standard Drinks/Week Comments No 0 (1 standard drink = 0.6 oz pur e alcohol) Comments Unknown Sex and Gender Information Value Date Recorded Sex Assigned at Not on file Legal Sex Female 12:21 PM ACCOUNTS RECEIVABLE MANAGER Gender Identity Not on file Sexual Orientation Not on file documented as of this encounter Plan of Treatment Not on file documented as of this encounter Visit Diagnoses Not on filedocumented in this encounter Care Teams Beer Merchant Relationship Specialty Start Date End Date Francisco Long MD PCP - General 02/23/17 05/15/22 Neil Ag MD PhD [address] [place] [address] Radiation Oncologist Radiation Oncology 12/17/18 [place] [address] [id number] Referring Physician General Surgery 12/17/18 [place] [address] [address] [address] Medical Oncologist/Birth Certificate Clerk Medical Oncology 12/17/18 documented as of this encounter
--- OUTSIDE RECORDS SUMMARY | 2024-11-16 15:45 | XMS_ITS | Encounter Summary ---
Author Organization [facility] Healthcare Address [address] [place] [address] Care Team Providers Care Programmer Or Analyst Name Role Phone Francisco Long MD Primary Care Provider [phone] Neil Ag MD PhD Unavailable [phone] Ita Vazquez MD Unavailable Caron Mohan MD Unavailable Encounter Details Date Type Department Care Team (Late st Contact Info) Description 01/15/2019 9:45 AM INTERNET ECOMMERCE SPECIALIST Treatment [facility] Radiation Oncology [address] [place] [address] Social History Tobacco Use Types Packs/Day Years Used Date Smoking Tobacco: Never Smokeless Tobacco: Never Alcohol Use Standard Drinks/Week Comments No 0 (1 standard drink = 0.6 oz pur e alcohol) Comments Unknown Sex and Gender Information Value Date Recorded Sex Assigned at Not on file Legal Sex Female 12:21 PM INTERNET ECOMMERCE SPECIALIST Gender Identity Not on file Sexual Orientation Not on file documented as of this encounter Plan of Treatment Not on file documented as of this encounter Visit Diagnoses Not on filedocumented in this encounter Care Teams Programmer Or Analyst Relationship Specialty Start Date End Date Francisco Long MD PCP - General 02/23/17 05/15/22 Neil Ag MD PhD [address] [place] [address] Radiation Oncologist Radiation Oncology 12/17/18 [place] [address] [id number] Referring Physician General Surgery 12/17/18 [place] [address] [address] [address] Medical Oncologist/Nuclear Medicine Pet Ct Technologist Medical Oncology 12/17/18 documented as of this encounter
--- OUTSIDE RECORDS SUMMARY | 2024-11-16 15:45 | XMS_ITS | Encounter Summary ---
Author Organization [facility] Healthcare Address [address] [place] [address] Care Team Providers Care Sql Bi Developer Name Role Phone Francisco Long MD Primary Care Provider [phone] Neil Ag MD PhD Unavailable [phone] Ita estrada MD Unavailable Caron Mohan MD Unavailable [phone] Encounter Details Date Type Department Care Team [...] on file Legal Sex Female 12:21 PM CONTRACT ADMINISTRATOR Gender Identity Not on file Sexual Orientation Not on file documented as of this encounter Plan of Treatment Not on file documented as of this encounter Procedures Procedure Name Priority Date/Time Associated Diagnosis Comments RAD ONC ARIA SESSION SUMMARY 01/15/2019 9:32 AM CONTRACT ADMINISTRATOR documented in this encounter Results * RAD ONC ARIA SESSION SUMMARY (01/15/2019 9:32 AM CONTRACT ADMINISTRATOR) Course Name C1 L BRS [place] 2019 ARIA Course Plan Date 12/30/2018 12:25 PM ARIA Elapsed Days 7 ARIA Treatment Start Date 01/08/2019 ARIA Treatment Site LT BRST ARIA Dose Given To Date (cGy) 1,596 ARIA Session Dosage Given (cGy) 266 ARIA Plan ID LT BRST:1 ARIA Fractions Treated 6 ARIA Prescribed Dose Per Fraction (cGy) 266 ARIA Prescribed Total Dose (cGy) 4,256 ARIA 01/15/2019 9:32 AM CONTRACT ADMINISTRATOR us Not In File Miscellaneous RADIATION ONCOLOGY ORD ERABLES Final Result ARIA documented in this encounter Visit Diagnoses Not on filedocumented in this encounter Care Teams Sql Bi Developer Relationship Specialty Start Date End Date Francisco Long MD PCP - General 02/23/17 05/15/22 Neil Ag MD PhD [address] [place] [address] Radiation Oncologist Radiation Oncology 12/17/18 [place] [address] [facility] [address] [place] [address] Referring Physician General Surgery 12/17/18 [place] [address] [facility] [address] [place] [address] Medical Oncologist/Porcelain Finish Sprayer Medical Oncology 12/17/18 documented as of this encounter
--- OUTSIDE RECORDS SUMMARY | 2024-11-16 15:45 | XMS_ITS | Encounter Summary ---
Author Organization [facility] Healthcare Address [address] [place] [address] Care Team Providers Care Accounting Tutor Name Role Phone Francisco Long MD Primary Care Provider [phone] Neil Ag MD PhD Unavailable [phone] Ita estrada MD Unavailable Caron Mohan MD Unavailable [phone] Encounter Details Date Type Department Care Team [...] on file Legal Sex Female 12:21 PM VIDEO RENTAL CLERK Gender Identity Not on file Sexual Orientation Not on file documented as of this encounter Plan of Treatment Not on file documented as of this encounter Procedures Procedure Name Priority Date/Time Associated Diagnosis Comments RAD ONC ARIA SESSION SUMMARY 01/13/2019 10:17 AM VIDEO RENTAL CLERK documented in this encounter Results * RAD ONC ARIA SESSION SUMMARY (01/13/2019 10:17 AM VIDEO RENTAL CLERK) Course Name C1 L BRS [place] 2019 ARIA Course Plan Date 12/30/2018 12:25 PM ARIA Elapsed Days 5 ARIA Treatment Start Date 01/08/2019 ARIA Treatment Site LT BRST ARIA Dose Given To Date (cGy) 1,064 ARIA Session Dosage Given (cGy) 266 ARIA Plan ID LT BRST:1 ARIA Fractions Treated 4 ARIA Prescribed Dose Per Fraction (cGy) 266 ARIA Prescribed Total Dose (cGy) 4,256 ARIA 01/13/2019 10:1 7 AM VIDEO RENTAL CLERK us Not In File Miscellaneous RADIATION ONCOLOGY ORD ERABLES Final Result ARIA documented in this encounter Visit Diagnoses Not on filedocumented in this encounter Care Teams Accounting Tutor Relationship Specialty Start Date End Date Francisco Long MD PCP - General 02/23/17 05/15/22 Neil Ag MD PhD [address] [place] [address] Radiation Oncologist Radiation Oncology 12/17/18 [place] [address] [facility] [address] [place] [address] Referring Physician General Surgery 12/17/18 [place] [address] [facility] [address] [place] [address] Medical Oncologist/Supervisor Leaf Spring Repair Medical Oncology 12/17/18 documented as of this encounter
--- OUTSIDE RECORDS SUMMARY | 2024-11-16 15:45 | XMS_ITS | Encounter Summary ---
Author Organization [facility] Healthcare Address [address] [place] [address] Care Team Providers Care Commercial Print Salesman Name Role Phone Francisco Long MD Primary Care Provider [phone] Neil Ag MD PhD Unavailable + [phone] Ita estrada MD Unavailable Caron Mohan MD [...] on file Legal Sex Female 12:21 PM E MAIL SYSTEM ADMINISTRATOR Gender Identity Not on file Sexual Orientation Not on file documented as of this encounter Plan of Treatment Not on file documented as of this encounter Procedures Procedure Name Priority Date/Time Associated Diagnosis Comments RAD ONC ARIA SESSION SUMMARY 01/14/2019 10:12 AM E MAIL SYSTEM ADMINISTRATOR documented in this encounter Results * RAD ONC ARIA SESSION SUMMARY (01/14/2019 10:12 AM E MAIL SYSTEM ADMINISTRATOR) Course Name C1 L BRS [place] 2019 [...] (cGy) 4,256 ARIA 01/14/2019 10:1 2 AM E MAIL SYSTEM ADMINISTRATOR us Not In File Miscellaneous RADIATION ONCOLOGY ORD ERABLES Final Result ARIA documented in this encounter Visit Diagnoses Not on filedocumented in this encounter Care Teams Commercial Print Salesman Relationship Specialty Start Date End Date Francisco Long MD PCP - General 02/23/17 05/15/22 Neil Ag MD PhD [address] [place] [address] Radiation Oncologist Radiation Oncology 12/17/18 [place] [address] [facility] [address] [place] [address] Referring Physician General Surgery 12/17/18 [place] [address] [facility] [address] [place] [address] Medical Oncologist/Rice Drier Medical Oncology 12/17/18 documented as of this encounter
--- OUTSIDE RECORDS SUMMARY | 2024-11-16 15:46 | XMS_ITS | Encounter Summary ---
Author Organization [facility] Medical Group Address [address] [facility] [address] [place] [address] Care Team Providers Care Fuel Testing Technician Name Role Phone Francisco Long MD Primary Care Provider [phone] Encounter Details Date Type Department Care Team (Late st Contact Info) Description 11/14/2018 Telephone [facility] [address] [facility] [address] [place] [address] Francisco Long MD 2 [facility] [address] [place] [address] Social History Tobacco Use Types Packs/Day Years Used Date Smoking Tobacco: Never Smokeless Tobacco: Never Alcohol Use Standard Drinks/Week Comments No 0 (1 standard drink = 0.6 oz pur e alcohol) Comments Unknown Sex and Gender Information Value Date Recorded Sex Assigned at Not on file Legal Sex Female 12:21 PM PHLEBOTOMIST ASSOCIATE Gender Identity Not on file Sexual Orientation Not on file documented as of this encounter Miscellaneous Notes * Telephone Encounter - Anita White MA - 11/14/2018 11:39 AM CST Didi aware BOTOMIST ASSOCIATE * Telephone Encounter - Francisco Long MD - 11/14/2018 11:15 AM CST Anemia iron deficiency BOTOMIST ASSOCIATE * Telephone Encounter - Chyna Choe - 11/14/2018 8:45 AM CST Need a diagnosis for iron, ferritin. Pt is at [facility]. [phone] BOTOMIST ASSOCIATE documented in this encounter Plan of Treatment Not on file documented as of this encounter Visit Diagnoses Not on filedocumented in this encounter Care Teams Fuel Testing Technician Relationship Specialty Start Date End Date Francisco Long MD PCP - General 02/23/17 05/15/22 documented as of this encounter
--- OUTSIDE RECORDS SUMMARY | 2024-11-16 15:46 | XMS_ITS | Encounter Summary ---
Author Organization [facility] Medical Group Address [address] [facility] [address] [place] [address] Care Team Providers Care Tractor Operator Laser Leveling Name Role Phone Francisco Long MD Primary Care Provider [phone] Reason for Visit * Reason Comments Anemia Encounter Details Date Type Department Care Team (Late st Contact Info) Description 11/16/2018 9:00 AM SANITATION OFFICER Office Visit [facility] [address] [facility] [address] [place] [address] Francisco Long MD [address] [place] [address] [address] [place] [address] Iron deficiency anemia, unspecified iron deficiency anemia type (Primary Dx) Social History Tobacco Use Types Packs/Day Years Used Date Smoking Tobacco: Never Smokeless Tobacco: Never Alcohol Use Standard Drinks/Week Comments No 0 (1 standard drink = 0.6 oz pur e alcohol) Comments Unknown Sex and Gender Information Value Date Recorded Sex Assigned at Not on file Legal Sex Female 12:21 PM SANITATION OFFICER Gender Identity Not on file Sexual Orientation Not on file documented as of this encounter Last Filed Vital Signs Vital Sign Reading Time Taken Comments Blood Pressure 142/84 11/16/2018 8:49 AM SANITATION OFFICER Pulse 78 11/16/2018 8:49 AM SANITATION OFFICER Temperature - - Respiratory Rate 18 11/16/2018 8:49 AM SANITATION OFFICER Oxygen Saturation - - Inhaled Oxygen Concentration - - Weight 84.9 kg (187 lb 3.2 oz) 11/16/2018 8:49 A M SANITATION OFFICER Height 170.2 cm (5' 7 ) 11/16/2018 8:49 AM SANITATION OFFICER Body Mass Index 29.32 11/16/2018 8:49 AM SANITATION OFFICER documented in this encounter Ordered Prescriptions [...] had uterine surgery hysterectomy laparoscopically habit at [facility] in June for uterine cancer she states [...] she will check with her doctors at [facility] regarding her upcoming breast lumpectomy schedule for Sunday for her breast cancer I cannot find the results of her lab work from June her any other testing she had done at [facility] since the [facility] information is blocked on the computer system she states she will get a call Sunday let him know the results of her blood test and will have him on block the computer system so we can review her care on Care everywhere in the [facility] system she will follow up with me [...] in agreement with the plan of care. TATION OFFICER documented in this encounter Plan of [...] 0 added in this encounter Care Teams Tractor Operator Laser Leveling Relationship Specialty Start Date End Date Francisco Long MD PCP - General 02/23/17 05/15/22 documented as of this encounter
--- OUTSIDE RECORDS SUMMARY | 2024-11-16 15:46 | XMS_ITS | Encounter Summary ---
Author Organization [facility] Medical Group Address [address] [facility] [address] [place] [address] Care Team Providers Care Gear Lapper Name Role Phone Francisco Long MD Primary Care Provider Reason for Visit * Reason Comments Cough Encounter Details Date Type Department Care Team (Late st Contact Info) Description 10/30/2018 11:00 AM AUTO GLASS INSTALLER Office Visit [facility] [address] [facility] [address] [place] [id number] Thao Munroe, PIANO MOVER [address] Vel[place] [address] [id number] Viral URI with cough (Primary Dx); BMI 30.0-30.9,adult Social History Tobacco Use Types Packs/Day Years Used Date Smoking Tobacco: Never Smokeless Tobacco: Never Alcohol Use Standard Drinks/Week Comments No 0 (1 standard drink = 0.6 oz pur e alcohol) Comments Unknown Sex and Gender Information Value Date Recorded Sex Assigned at Not on file Legal Sex Female 12:21 PM AUTO GLASS INSTALLER Gender Identity Not on file Sexual Orientation Not on file documented as of this encounter Last Filed Vital Signs Vital Sign Reading Time Taken Comments Blood Pressure 138/74 10/30/2018 11:08 AM AUTO GLASS INSTALLER Pulse 96 10/30/2018 11:08 AM AUTO GLASS INSTALLER Temperature 36.7 ??C (98.1 ??F) 10/30/2018 11:[address] Respiratory Rate 18 10/30/2018 11:08 AM AUTO GLASS INSTALLER Oxygen Saturation - - Inhaled Oxygen Concentration - - Weight 87.1 kg (192 lb) 10/30/2018 11:08 AM AUTO GLASS INSTALLER Height 170.2 cm (5' 7 ) 10/30/2018 11:08 AM AUTO GLASS INSTALLER Body Mass Index 30.07 10/30/2018 11:08 AM AUTO GLASS INSTALLER documented in this encounter Ordered Prescriptions Prescription Sig Dispense Quantity Refills Last Filled Start Date End Date fluticasone (FLONASE) 50 mcg/actuation nasal spray Administer 2 sprays into each nostril daily. 16 g 10/30/2018 9 documented in this encounter Miscellaneous Notes * Assessment & Plan Note - Thao Munroe PIANO MOVER - 10/30/2018 11:26 AM AUTO GLASS INSTALLER Associated Problem(s): Viral URI with cough (Resolved 12/17/2018) Likely viral based on symptoms. Flonase prescribed, conservative management advised including use of a nasal rinses, humidifier or paper eyes are along with indication to f/u in office with any worsening symptoms or persistent symptoms. GLASS INSTALLER GLASS INSTALLER documented in this encounter Plan of Treatment Not on file documented as of this encounter Visit Diagnoses Diagnosis Viral URI with cough- Primary BMI 30.0-30.9,adult documented in this encounter Care Teams Gear Lapper Relationship Specialty Start Date End Date Francisco Long MD PCP - General 02/23/17 05/15/22 documented as of this encounter
--- OUTSIDE RECORDS SUMMARY | 2024-11-16 15:46 | XMS_ITS | Encounter Summary ---
Author Organization [facility] Healthcare Address [address] [place] [address] Care Team Providers Care Financing Analyst Name Role Phone Francisco Long MD Primary Care Provider [phone] Neil Ag MD PhD Unavailable [phone] Ita Vazquez MD Unavailable Caron Mohan MD Unavailable Encounter Details Date Type Department Care Team (Late st Contact Info) Description 01/07/2019 11:00 AM CONSOLE MANAGER Treatment [facility] Radiation Oncology [address] [place] [address] Neil Ag MD PhD [address] [place] [address] Social History Tobacco Use Types Packs/Day Years Used Date Smoking Tobacco: Never Smokeless Tobacco: Never Alcohol Use Standard Drinks/Week Comments No 0 (1 standard drink = 0.6 oz pur e alcohol) Comments Unknown Sex and Gender Information Value Date Recorded Sex Assigned at Not on file Legal Sex Female 12:21 PM CONSOLE MANAGER Gender Identity Not on file Sexual Orientation Not on file documented as of this encounter Plan of Treatment Not on file documented as of this encounter Visit Diagnoses Not on filedocumented in this encounter Care Teams Financing Analyst Relationship Specialty Start Date End Date Francisco Long MD PCP - General 02/23/17 05/15/22 Neil Ag MD PhD [address] [place] [address] Radiation Oncologist Radiation Oncology 12/17/18 [place] [address] [address] [facility] [address] [place] [address] Referring Physician General Surgery 12/17/18 [place] [address] [address] [facility] [address] [place] [address] Medical Oncologist/Cream Cheese Maker Medical Oncology 12/17/18 documented as of this encounter
--- OUTSIDE RECORDS SUMMARY | 2024-11-16 15:46 | XMS_ITS | Encounter Summary ---
Author Organization [facility] Healthcare Address [address] [place] [address] Care Team Providers Care Vp Software Name Role Phone Francisco Long MD Primary Care Provider [phone] Neil Ag MD PhD Unavailable [phone] Ita Vazquez MD Unavailable Caron Mohan MD Unavailable Encounter Details Date Type Department Care Team (Late st Contact Info) Description 12/30/2018 11:00 AM PLANTING MATERIAL REMOVER Treatment [facility] Radiation Oncology [address] [place] [address] Neil Ag MD PhD [address] [place] [address] Social History Tobacco Use Types Packs/Day Years Used Date Smoking Tobacco: Never Smokeless Tobacco: Never Alcohol Use Standard Drinks/Week Comments No 0 (1 standard drink = 0.6 oz pur e alcohol) Comments Unknown Sex and Gender Information Value Date Recorded Sex Assigned at Not on file Legal Sex Female 12:21 PM PLANTING MATERIAL REMOVER Gender Identity Not on file Sexual Orientation Not on file documented as of this encounter Plan of Treatment Not on file documented as of this encounter Visit Diagnoses Not on filedocumented in this encounter Care Teams Vp Software Relationship Specialty Start Date End Date Francisco Long MD PCP - General 02/23/17 05/15/22 Neil Ag MD PhD [address] [place] [address] Radiation Oncologist Radiation Oncology 12/17/18 [place] [address] [address] [facility] [address] [place] [address] Referring Physician General Surgery 12/17/18 [place] [address] [address] [facility] [address] [place] [address] Medical Oncologist/Senior Director Of Strategy Medical Oncology 12/17/18 documented as of this encounter
--- OUTSIDE RECORDS SUMMARY | 2024-11-16 15:46 | XMS_ITS | Encounter Summary ---
Author Organization [facility] Healthcare Address [address] [place] [address] Care Team Providers Care Dope Sprayer Name Role Phone Francisco Long MD Primary Care Provider [phone] Neil Ag MD PhD Unavailable [phone] Ita Vazquez MD Unavailable Caron Mohan MD Unavailable Encounter Details Date Type Department Care Team (Late st Contact Info) Description 01/09/2019 10:30 AM CATTLE TESTER Treatment [facility] Radiation Oncology [address] [place] [address] Social History Tobacco Use Types Packs/Day Years Used Date Smoking Tobacco: Never Smokeless Tobacco: Never Alcohol Use Standard Drinks/Week Comments No 0 (1 standard drink = 0.6 oz pur e alcohol) Comments Unknown Sex and Gender Information Value Date Recorded Sex Assigned at Not on file Legal Sex Female 12:21 PM CATTLE TESTER Gender Identity Not on file Sexual Orientation Not on file documented as of this encounter Plan of Treatment Not on file documented as of this encounter Visit Diagnoses Not on filedocumented in this encounter Care Teams Dope Sprayer Relationship Specialty Start Date End Date Francisco Long MD PCP - General 02/23/17 05/15/22 Neil Ag MD PhD [address] [place] [address] Radiation Oncologist Radiation Oncology 12/17/18 [place] [address] [id number] Referring Physician General Surgery 12/17/18 [place] [address] [address] [address] Medical Oncologist/Blister Packing Machine Tender Medical Oncology 12/17/18 documented as of this encounter
--- OUTSIDE RECORDS SUMMARY | 2024-11-16 15:46 | XMS_ITS | Encounter Summary ---
Author Organization [facility] Medical Group Address [address] [facility] [address] [place] [address] Care Team Providers Care Nickel Plant Operator Name Role Phone Francisco Long MD Primary Care Provider [phone] Encounter Details Date Type Department Care Team (Late st Contact Info) Description 10/31/2018 Telephone [facility] [address] [facility] [address] [place] [address] Thao Munroe, ACOUSTICAL TILE DRILL PRESS OPERATOR [address] [facility] [address] Velaz[address] [facility] [address] [place], [place] [id number] Social History Tobacco Use Types Packs/Day Years Used Date Smoking Tobacco: Never Smokeless Tobacco: Never Alcohol Use Standard Drinks/Week Comments No 0 (1 standard drink = 0.6 oz pur e alcohol) Comments Unknown Sex and Gender Information Value Date Recorded Sex Assigned at Not on file Legal Sex Female 12:21 PM TACK DRILLER Gender Identity Not on file Sexual Orientation [...] - 10/31/2018 10:40 AM CST Pt aware DRILLER * Telephone Encounter - Thao uMnroe NP - 10/31/2018 10:22 AM TACK DRILLER I sent her over tessalon perles to [...] consider antibiotics at that time. Thank you DRILLER * Telephone Encounter - Anita White MA - 10/31/2018 10:19 AM CST MKB DRILLER * Telephone Encounter - Kaylynn Prieto - 10/31/2018 10:16 AM TACK DRILLER Pt was seen yesterday and given a nasal spray, pt was told to call back if she gets worse, pt coughed all day yesterday and all night, requesting a cough medication or abx, please advise Nov 12/11/18 DRILLER documented in this encounter Plan of Treatment Not on file documented as of this encounter Visit Diagnoses Not on filedocumented in this encounter Care Teams Nickel Plant Operator Relationship Specialty Start Date End Date Francisco Long MD PCP - General 02/23/17 05/15/22 documented as of this encounter
--- OUTSIDE RECORDS SUMMARY | 2024-11-16 15:46 | XMS_ITS | Encounter Summary ---
Author Organization [facility] Healthcare Address [address] [place] [address] Care Team Providers Care Pipefitter Welder Name Role Phone Francisco Long MD Primary Care Provider [phone] Neil Ag MD PhD Unavailable [phone] Ita Vazquez MD Unavailable Caron Mohan MD Unavailable Encounter Details Date Type Department Care Team (Late st Contact Info) Description 01/08/2019 10:30 AM BINDING CUTTER SYNTHETIC CLOTH Treatment [facility] Radiation Oncology [address] [place] [address] Social History Tobacco Use Types Packs/Day Years Used Date Smoking Tobacco: Never Smokeless Tobacco: Never Alcohol Use Standard Drinks/Week Comments No 0 (1 standard drink = 0.6 oz pur e alcohol) Comments Unknown Sex and Gender Information Value Date Recorded Sex Assigned at Not on file Legal Sex Female 12:21 PM BINDING CUTTER SYNTHETIC CLOTH Gender Identity Not on file Sexual Orientation Not on file documented as of this encounter Plan of Treatment Not on file documented as of this encounter Visit Diagnoses Not on filedocumented in this encounter Care Teams Pipefitter Welder Relationship Specialty Start Date End Date Francisco Long MD PCP - General 02/23/17 05/15/22 Neil Ag MD PhD [address] [place] [address] Radiation Oncologist Radiation Oncology 12/17/18 [place] [address] [id number] Referring Physician General Surgery 12/17/18 [place] [address] [address] Medical Oncologist/Car Seat Coverer Medical Oncology 12/17/18 documented as of this encounter
--- OUTSIDE RECORDS SUMMARY | 2024-11-16 15:46 | XMS_ITS | Encounter Summary ---
Author Organization [facility] Medical Group Address [address] [facility] [address] [place] [address] Care Team Providers Care Autotransfusionist Name Role Phone Francisco Long MD Primary Care Provider [phone] Encounter Details Date Type Department Care Team (Late st Contact Info) Description 11/15/2018 Telephone [facility] [address] [facility] [address] [place] [address] Jami Pettit MA Social History Tobacco Use Types Packs/Day Years Used Date Smoking Tobacco: Never Smokeless Tobacco: Never Alcohol Use Standard Drinks/Week Comments No 0 (1 standard drink = 0.6 oz pur e alcohol) Comments Unknown Sex and Gender Information Value Date Recorded Sex Assigned at Not on file Legal Sex Female 12:21 PM SIDE SEAM TENDER Gender Identity Not on file Sexual Orientation Not on file documented as of this encounter Miscellaneous Notes * Telephone Encounter - Jami Pettit MA - 11/15/2018 9:32 AM SIDE SEAM TENDER Patient aware appt scheduled for 11/16/18 at 9:00 She said she has not been on her irion since Sunday Or Sunday, because she is having a breast lumpectomy on Sunday the . Was told to stop her Iron, has been very tired last 2 days She wanted to let you know this SEAM TENDER * Telephone Encounter - Jami Pettit MA - 11/15/2018 9:29 AM SIDE SEAM TENDER ----- Message from Francisco Long MD sent at 11/15/2018 9:28 AM SIDE SEAM TENDER ----- Patient is anemic low on iron have her see me tomorrow morning 9:00 a.m. If possible SEAM TENDER documented in this encounter Plan of Treatment Not on file documented as of this encounter Visit Diagnoses Not on filedocumented in this encounter Care Teams Autotransfusionist Relationship Specialty Start Date End Date Francisco Long MD PCP - General 02/23/17 05/15/22 documented as of this encounter
--- OUTSIDE RECORDS SUMMARY | 2024-11-16 15:46 | XMS_ITS | Encounter Summary ---
Author Organization [facility] Medical Group Address [address] [facility] [address] [place] [address] Care Team Providers Care Insole Rounder Name Role Phone Francisco Long MD Primary Care Provider Neil Ag MD PhD Unavailable [phone] Ita Vazquez MD Unavailable Caron Mohan MD Unavailable Reason for Visit * Reason Comments Medicare Wellness subsequent Encounter Details Date Type Department Care Team (Late st Contact Info) Description 12/17/2018 3:00 PM ORACLE WEBCENTER CONSULTANT Office Visit [facility] [address] [facility] [address] [place] [address] Francisco Long MD [address] [place] [address] [address] [place] [address] Medicare annual wellness visit, subsequent [...] file Legal Sex Female 12:21 PM ORACLE WEBCENTER CONSULTANT Gender Identity Not on file Sexual Orientation Not on file documented as of this encounter Last Filed Vital Signs Vital Sign Reading Time Taken Comments Blood Pressure 138/80 12/17/2018 2:50 PM ORACLE WEBCENTER CONSULTANT Pulse 64 12/17/2018 2:50 PM ORACLE WEBCENTER CONSULTANT Temperature - - Respiratory Rate 20 12/17/2018 2:50 PM ORACLE WEBCENTER CONSULTANT Oxygen Saturation - - Inhaled Oxygen Concentration - - Weight 84.8 kg (187 lb) 12/17/2018 2:50 PM ORACLE WEBCENTER CONSULTANT Height 168.9 cm (5' 6.5 ) 12/17/2018 2:50 PM ORACLE WEBCENTER CONSULTANT Body Mass Index 29.73 12/17/2018 2:50 PM ORACLE WEBCENTER CONSULTANT documented in this encounter Ordered Prescriptions Prescription [...] 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 LE WEBCENTER CONSULTANT LE WEBCENTER CONSULTANT documented in this encounter Plan of [...] 12/17/2018 documented in this encounter Care Teams Insole Rounder Relationship Specialty Start Date End Date Francisco Long MD PCP - General 02/23/17 05/15/22 Neil Ag MD PhD [address] [place] [address] Radiation Oncologist Radiation Oncology 12/17/18 [place] [address] [address] [facility] [address] [place] [address] Referring Physician General Surgery 12/17/18 [place] [address] [address] [facility] [address] [place], [place] [phone] Medical Oncologist/Berry Grower Medical Oncology 12/17/18 documented as of this encounter
--- OUTSIDE RECORDS SUMMARY | 2024-11-16 15:46 | XMS_ITS | Encounter Summary ---
Author Organization [facility] Address [address] [facility] [address] [place] [address] Care Team Providers Care Java Software Engineer Name Role Phone Francisco Long MD Primary Care Provider [phone] Reason for Visit * Reason Comments Cough Chills Generalized Body Aches Encounter Details Date Type Department Care Team (Late st Contact Info) Description 09/13/2018 1:00 PM CDT Office Visit [facility] 2 [facility] [address] [place] [address] Francisco Long MD [address] [place] [address] [address] [place] [address] Laceration of left middle finger [...] on file Legal Sex Female 12:21 PM BILINGUAL TEACHER ASSISTANT Gender Identity Not on file Sexual [...] week and she has been referred to [facility] cancer specialist for possible biopsy next [...] follow-up with the OB as directed her share dairy farmer as directed Vitals: 09/13/18 1249 BP: 144/80 [...] 09/13/2018 documented in this encounter Care Teams Java Software Engineer Relationship Specialty Start Date End Date Francisco Long MD PCP - General 02/23/17 05/15/22 documented as of this encounter
--- OUTSIDE RECORDS SUMMARY | 2024-11-16 15:46 | XMS_ITS | Encounter Summary ---
Author Organization [facility] Healthcare Address [address] [place] [address] Care Team Providers Care Disaster Or Damage Control Specialist Name Role Phone Francisco Long MD Primary Care Provider [phone] Neil Peterson MD PhD Unavailable [phone] Ita Vazquez MD Unavailable Caron Mohan MD [...] Expiration Date V isits Requested Visits Authorized [id number] Closed Specialty Services Required 12/03/2018 06/13/2020 1 1 Encounter Details Date Type Department Care Team (Late st Contact Info) Description 12/17/2018 1:30 PM HEAT REGULATOR Consult [facility] Radiation Oncology [address] [place] [address] Neil Peterson MD PhD [address] [place] [address] [place] [address] [facility] [address] [place] [address] Malignant neoplasm of upper-inner quadrant of left [...] on file Legal Sex Female 12:21 PM HEAT REGULATOR Gender Identity Not on file Sexual Orientation Not on file documented as of this encounter Last Filed Vital Signs Vital Sign Reading Time Taken Comments Blood Pressure 153/68 12/17/2018 2:21 PM HEAT REGULATOR Pulse 85 12/17/2018 2:21 PM HEAT REGULATOR Temperature 36.4 ??C (97.6 ??F) 12/17/2018 2:21 PM CS T Respiratory Rate 20 12/17/2018 2:21 PM HEAT REGULATOR Oxygen Saturation - - Inhaled Oxygen Concentration - - Weight 84.8 kg (187 lb) 12/17/2018 2:21 PM HEAT REGULATOR Height - - Body Mass Index 29.29 11/16/2018 8:49 AM HEAT REGULATOR documented in this encounter Discharge Disposition Disposition [...] IA (pT1b, pN1mi(sn), cM0, G2, ER: Positive, WA: Positive, HER2: Negative) - Signed by Neil Peterson MD PhD on 12/17/2018 Jolene Cedillo is a 72 y.o. 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 There was no evidenceof lymphovascular invasion. Surgical options were discussed with the patient who ultimately decidedto undergo breast conservation and had lumpectomy and sentinel lymph node biopsy on 11/14/2018. Pathology was consistent with invasive ductal carcinoma, Hayden grade 6 of 9, 1.3 cm in [...] mammogram, encounter for (1946); and Uterine cancer ([facility]) (04/2018). 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 The short term risks include, but are not limited to, fatigue, edema, hyperpigmentation, and dermatitis. The usp risks include, but are not limited to, [...] participate in the care of this patient. REGULATOR REGULATOR documented in this encounter Plan of Treatment [...] 2018 documented in this encounter Care Teams Disaster Or Damage Control Specialist Relationship Specialty Start Date End Date Francisco Long MD PCP - General 02/23/17 05/15/22 Neil Peterson MD PhD [address] [place] [address] Radiation Oncologist Radiation Oncology 12/17/18 [place] [address] [address] [facility] [address] [place] [address] Referring Physician General Surgery 12/17/18 [place] [address] [address] [facility] [address] [place] [address] Medical Oncologist/Cheesemaker Medical Oncology 12/17/18 documented as of this encounter
--- OUTSIDE RECORDS SUMMARY | 2024-11-16 15:46 | XMS_ITS | Encounter Summary ---
Author Organization [facility] Healthcare Address [address] [place] [address] Care Team Providers Care Coach Driver Name Role Phone Francisco Long MD Primary Care Provider [phone] Neil Ag MD PhD Unavailable [phone] Ita Vazquez MD Unavailable Caron Mohan MD Unavailable Encounter Details Date Type Department Care Team (Late st Contact Info) Description 01/10/2019 10:30 AM BLOCKER AND CUTTER CONTACT LENS Treatment [facility] Radiation Oncology [address] [place] [address] Social History Tobacco Use Types Packs/Day Years Used Date Smoking Tobacco: Never Smokeless Tobacco: Never Alcohol Use Standard Drinks/Week Comments No 0 (1 standard drink = 0.6 oz pur e alcohol) Comments Unknown Sex and Gender Information Value Date Recorded Sex Assigned at Not on file Legal Sex Female 12:21 PM BLOCKER AND CUTTER CONTACT LENS Gender Identity Not on file Sexual Orientation Not on file documented as of this encounter Plan of Treatment Not on file documented as of this encounter Visit Diagnoses Not on filedocumented in this encounter Care Teams Coach Driver Relationship Specialty Start Date End Date Francisco Long MD PCP - General 02/23/17 05/15/22 Neil Ag MD PhD [address] [place] [address] Radiation Oncologist Radiation Oncology 12/17/18 [place] [address] [id number] Referring Physician General Surgery 12/17/18 [place] [address] [address] [address] Medical Oncologist/Primer Inserting Machine Adjuster Medical Oncology 12/17/18 documented as of this encounter
--- OUTSIDE RECORDS SUMMARY | 2024-11-16 15:46 | XMS_ITS | Encounter Summary ---
Author Organization [facility] Address [address] [place] [address] Care Team Providers Care Lithopress Operator Name Role Phone Francisco Long MD Primary Care Provider [phone] Encounter Details Date Type Department Care Team (Late st Contact Info) Description 11/14/2018 Orders Only [place] [facility] 2 [facility] [address] [place] [address] Francisco Long MD 2 [facility] [address] [place] [address] Social History Tobacco Use Types Packs/Day Years Used Date Smoking Tobacco: Never Smokeless Tobacco: Never Alcohol Use Standard Drinks/Week Comments No 0 (1 standard drink = 0.6 oz pur e alcohol) Comments Unknown Sex and Gender Information Value Date Recorded Sex Assigned at Not on file Legal Sex Female 12:21 PM MANAGER SITE Gender Identity Not on file Sexual Orientation Not on file documented as of this encounter Progress Notes * Francisco Long MD - 11/14/2018 11:59 PM CST Patient is anemic low on iron have her see me tomorrow morning 9:00 a.m. If possible GER SITE documented in this encounter Plan of Treatment Not on file documented as of this encounter Procedures Procedure Name Priority Date/Time Associated Diagnosis Comments CHOL/HDLC RATIO Routine 11/14/2018 8:37 AM MANAGER SITE LDL-CHOLESTEROL Routine 11/14/2018 8:37 AM MANAGER SITE NON HDL CHOLESTEROL Routine 11/14/2018 8 :37 AM MANAGER SITE REFLEXIVE URINE CULTURE Routine 11/14/2018 8:37 AM MANAGER SITE URINALYSIS AND REFLEX TO MICROSCOPIC AND CULTURE Routine 11/14/2018 8:37 AM MANAGER SITE CBC WITH AUTO DIFFERENTIAL Routine 11/14/2018 8:37 AM MANAGER SITE URINE CULTURE Routine 11/14/2018 8:37 AM MANAGER SITE TRIGLYCERIDES Routine 11/14/2018 8:37 AM MANAGER SITE CHOLESTEROL, HDL Routine 11/14/2018 8:37 AM MANAGER SITE IRON Routine 11/14/2018 8:37 AM MANAGER SITE FERRITIN Routine 11/14/2018 8:37 AM MANAGER SITE CHOLESTEROL, TOTAL Routine 11/14/2018 8: 37 AM MANAGER SITE COMPREHENSIVE METABOLIC PANEL Routine 11/14/2018 8:37 AM MANAGER SITE documented in this encounter Results * Urine culture (11/14/2018 8:37 AM MANAGER SITE) Urine culture [facility] [place] Comment: ??CULTURE, URINE, ROUTINE ?MICRO NUMBER: ?[id number] ??TEST STATUS: ? FINAL ??SPECIMEN SOURCE: ?? URINE ??SPECIMEN QUALITY: ??ADEQUATE ??RESULT: ?Multiple organisms present, each less than 10,000 ? CFU/mL. These organisms, commonly found on ? external and internal genitalia, are considered ? to be colonizers. No further testing performed. 11/14/2018 8:37 AM MANAGER SITE 11/14/2018 8:49 AM MANAGER SITE Narrative [facility] - 11/16/2018 6:50 AM MANAGER SITE FASTING:YES FASTING: YES Resulting Agency Comment Performing Organization Information: ?Site ID: [place] ?Name: Jesika Jackson-Andry ?Address: [facility] [place] [id number] ?Director: Alex Garcia D.O., MPH Francisco Long MD LAB MICROBIOLOGY - GENERAL ORD ERABLES Final Result Performing Organization Address [facility] de Phone Number [facility] [place] * REFLEXIVE URINE CULTURE (11/14/2018 8:37 AM MANAGER SITE) Urine culture CULTURE INDICATED - RESULTS TO FOLLOW [facility] [place] 11/14/2018 8:37 AM MANAGER SITE 11/14/2018 8:49 AM MANAGER SITE Narrative [facility] - 11/16/2018 6:50 AM MANAGER SITE FASTING:YES FASTING: YES Resulting Agency Comment Performing Organization Information: ?Site ID: [place] ?Name: Jesika Jackson-Andry ?Address: [facility] [place] [id number] ?Director: Alex Garcia D.O., MPH Francisco Long MD LAB MICROBIOLOGY - GENERAL ORD ERABLES Final Result Performing Organization Address [facility] de Phone Number [facility] [place] * (ABNORMAL) Urinalysis reflex to microscopic and culture (11/14/2018 8:37 AM MANAGER SITE) Color, ur YELLOW YELLOW [facility] - [...] [facility] [place] 11/14/2018 8:37 AM MANAGER SITE 11/14/2018 8:49 AM MANAGER SITE Narrative [facility] - 11/16/2018 6:50 AM MANAGER SITE FASTING:YES FASTING: YES Resulting Agency Comment Performing Organization Information: ?Site ID: [place] ?Name: [facility] ?Address: [address] [place], [place] [address]ner [facility] [place] [address] ?Director: Alex Garcia D.O. MPH us Francisco Long MD LAB MICROBIOLOGY - GENERAL ORD ERABLES Final Result Performing Organization Address [facility] Co de Phone Number JESIKA [facility] - [place] Mcgarry * (ABNORMAL) Ferritin (11/14/2018 8:37 AM MANAGER SITE) Ferritin 5(L) 20 - 288 ng/mL [facility] [place] 11/14/2018 8:37 AM MANAGER SITE 11/14/2018 8:49 AM MANAGER SITE Narrative [facility] - 11/16/2018 6:50 AM MANAGER SITE FASTING:YES FASTING: YES Resulting Agency Comment Performing Organization Information: ?Site ID: [place] ?Name: [facility] ?Address: [facility] [place] [address] ?Director: Alex Garcia D.O. MPH us Francisco Long MD LAB BLOOD ORDERABLES Final Res ult [facility] [place] * (ABNORMAL) CBC with auto differential (11/14/2018 8:37 AM MANAGER SITE) WBC 5.7 3.8 - 10.8 Thousand/u L [...] [facility] [place] 11/14/2018 8:37 AM MANAGER SITE 11/14/2018 8:49 AM MANAGER SITE Narrative [facility] - 11/16/2018 6:50 AM MANAGER SITE FASTING:YES FASTING: YES Resulting Agency Comment Performing Organization Information: ?Site ID: [place] ?Name: [facility] ?Address: [facility] [place] [id number] ?Director: Alex Garcia D.O., MPH us Francisco Long MD LAB BLOOD ORDERABLES Final Res ult [facility] [place] * (ABNORMAL) Comprehensive metabolic panel (11/14/2018 8:37 AM MANAGER SITE) Glucose 127(H) 65 - 99 mg/dL [facility] [...] approximately 13% higher for people identified as -S[place] Leone[place]. eGFR NON-AFR. IRANIAN 76 > [place] = 60 mL/min/1 .73m2 [...] [facility] [place] 11/14/2018 8:37 AM MANAGER SITE 11/14/2018 8:49 AM MANAGER SITE Narrative [facility] - 11/16/2018 6:50 AM MANAGER SITE FASTING:YES FASTING: YES Resulting Agency Comment Performing Organization Information: ?Site ID: [place] ?Name: Jesika Matthew ?Address: [facility] [place] [id number] ?Director: Alex Garcia D.O., MPH Francisco Long MD LAB BLOOD ORDERABLES Final Res ult Performing Organization Address [facility] Co de Phone Number YEN[place] Carrillo * (ABNORMAL) Iron level (11/14/2018 8:37 AM MANAGER SITE) Iron 11(L) 45 - 160 mcg/dL [facility] 11/14/2018 8:37 AM MANAGER SITE 11/14/2018 8:49 AM MANAGER SITE Narrative [facility] - 11/16/2018 6:50 AM MANAGER SITE FASTING:YES FASTING: YES Resulting Agency Comment Performing Organization Information: ?Site ID: [place] ?Name: Jesika Matthew ?Address: [facility] [place] [id number] ?Director: Alex Garcia D.O. MPH Francisco Long MD LAB BLOOD ORDERABLES Final Res ult Performing Organization Address [facility] de Phone Number YENNY Carrillo * (ABNORMAL) NON HDL CHOLESTEROL (11/14/2018 8:37 AM MANAGER SITE) Non-HDL, (LDL+VLDL) 138(H) <130 mg/dL (calc) [facility] - [place] Comment: For patients with diabetes plus 1 major ASCVD risk factor, treating to a non-HDL-C goal of <100 mg/dL (LDL-C of <70 mg/dL) is considered a therapeutic option. 11/14/2018 8:37 AM MANAGER SITE 11/14/2018 8:49 AM MANAGER SITE Narrative [facility] - 11/16/2018 6:50 AM MANAGER SITE FASTING:YES FASTING: YES Resulting Agency Comment Performing Organization Information: ?Site ID: [place] ?Name: Jesika Matthew ?Address: [address] [place] [id number] ?Director: Alex Garcia D.O. MPH Francisco Long MD LAB BLOOD ORDERABLES Final Res ult Performing Organization Address [facility] de Phone Number YENNY Carrillo * CHOL/HDLC RATIO (11/14/2018 8:37 AM MANAGER SITE) Chol/HDL ratio 3.4 <5.0 (calc) JESIKA RAMON 11/14/2018 8:37 AM MANAGER SITE 11/14/2018 8:49 AM MANAGER SITE Narrative [facility] - 11/16/2018 6:50 AM MANAGER SITE FASTING:YES FASTING: YES Resulting Agency Comment Performing Organization Information: ?Site ID: Y[place] ?Name: Jesika Matthew ?Address: [address] [place] [id number] ?Director: Alex Garcia D.O. MPH us Francisco Long MD LAB BLOOD ORDERABLES Final Res ult Performing Organization Address [facility] Phone Number [place] Carrillo * (ABNORMAL) LDL-Cholesterol (11/14/2018 8:37 AM MANAGER SITE) LDL 122(H) mg/dL (calc) JESIKA RAMON Comment: [...] LDL-C. Harry YUAN et al. RANDALL. 2013;310(19): 1776-3684 (http://education.ALCOHOOT.Clicker/faq/XRV007) 11/14/2018 8:37 AM MANAGER SITE 11/14/2018 8:49 AM MANAGER SITE Narrative [facility] - 11/16/2018 6:50 AM MANAGER SITE FASTING:YES FASTING: YES Resulting Agency Comment Performing Organization Information: ?Site ID: [place] ?Name: [facility] ?Address: [facility] [place] [id number] ?Director: Alex Garcia D.O., MPH Francisco Long MD LAB BLOOD ORDERABLES Final Res ult Performing Organization Address City/[facility] Co de Phone Number [facility] - [place] * Triglycerides (11/14/2018 8:37 AM MANAGER SITE) Triglycerides 70 <150 mg/dL [facility] [place] 11/14/2018 8:37 AM MANAGER SITE 11/14/2018 8:49 AM MANAGER SITE Narrative [facility] - 11/16/2018 6:50 AM MANAGER SITE FASTING:YES FASTING: YES Resulting Agency Comment Performing Organization Information: ?Site ID: [place] ?Name: [facility] ?Address: [facility] [place] [id number] ?Director: Alex Garcia D.O., MPH Francisco Long MD LAB BLOOD ORDERABLES Final Res ult Performing Organization Address [facility] Co de Phone Number [facility] VAUGH[facility] - [place] * Cholesterol, HDL (11/14/2018 8:37 AM MANAGER SITE) HDL 57 >50 mg/dL [facility] - [place] 11/14/2018 8:37 AM MANAGER SITE 11/14/2018 8:49 AM MANAGER SITE Narrative [facility] - 11/16/2018 6:50 AM MANAGER SITE FASTING:YES FASTING: YES Resulting Agency Comment Performing Organization Information: ?Site ID: [place] ?Name: [facility] ?Address: [facility] [place] [id number] ?Director: Alex Garcia D.O., MPH us Francisco Long MD LAB BLOOD ORDERABLES Final Res ult [facility] [place] * Cholesterol, total (11/14/2018 8:37 AM MANAGER SITE) Cholesterol 195 <200 mg/dL [facility] - [place] 11/14/2018 8:37 AM MANAGER SITE 11/14/2018 8:49 AM MANAGER SITE Narrative [facility] - 11/16/2018 6:50 AM MANAGER SITE FASTING:YES FASTING: YES Resulting Agency Comment Performing Organization Information: ?Site ID: [place] ?Name: [facility] ?Address: [address] [place] [id number] ?Director: Alex Garcia D.O., MPH us Francisco Long MD LAB BLOOD ORDERABLES Final Res ult [facility] [place] documented in this encounter Visit Diagnoses Not on filedocumented in this encounter Care Teams Lithopress Operator Relationship Specialty Start Date End Date Francisco Long MD PCP - General 02/23/17 05/15/22 documented as of this encounter
--- OUTSIDE RECORDS SUMMARY | 2024-11-16 15:46 | XMS_ITS | Encounter Summary ---
Author Organization [facility] Address [address] [place] [address] Care Team Providers Care Management Specialist Name Role Phone Francisco Long MD Primary Care Provider [phone] Neil Ag MD PhD Unavailable [phone] Ita estrada MD Unavailable Caron Mohan MD Unavailable [phone] Encounter Details Date Type Department Care Team [...] on file Legal Sex Female 12:21 PM FACTORY LAY OUT ENGINEER Gender Identity Not on file Sexual Orientation Not on file documented as of this encounter Plan of Treatment Not on file documented as of this encounter Procedures Procedure Name Priority Date/Time Associated Diagnosis Comments RAD ONC ARIA SESSION SUMMARY 01/08/2019 10:43 AM FACTORY LAY OUT ENGINEER documented in this encounter Results * RAD ONC ARIA SESSION SUMMARY (01/08/2019 10:43 AM FACTORY LAY OUT ENGINEER) Course Name C1 L BRS NM 2019 [...] (cGy) 4,256 ARIA 01/08/2019 10:4 3 AM FACTORY LAY OUT ENGINEER us Not In File Miscellaneous RADIATION ONCOLOGY ORD ERABLES Final Result ARIA documented in this encounter Visit Diagnoses Not on filedocumented in this encounter Care Teams Management Specialist Relationship Specialty Start Date End Date Francisco Long MD PCP - General 02/23/17 05/15/22 Neil Ag MD PhD [address] [place] [address] Radiation Oncologist Radiation Oncology 12/17/18 [place] [address] [address] Referring Physician General Surgery 12/17/18 [place] [address] [facility] [address] [place] [address] Medical Oncologist/Setter Juice Packaging Machines Medical Oncology 12/17/18 documented as of this encounter
--- OUTSIDE RECORDS SUMMARY | 2024-11-16 15:46 | XMS_ITS | Encounter Summary ---
Author Organization [facility] Healthcare Address [address] [place] [address] Care Team Providers Care Senior Account Executive Name Role Phone Francisco Long MD Primary Care Provider [phone] Neil Ag MD PhD Unavailable [phone] Ita estrada MD Unavailable Caron Mohan MD Unavailable [phone] Encounter Details Date Type Department Care Team [...] Legal Sex Female 12:21 PM BLOCKER AND POLISHER Gender Identity Not on file Sexual Orientation Not on file documented as of this encounter Plan of Treatment Not on file documented as of this encounter Procedures Procedure Name Priority Date/Time Associated Diagnosis Comments RAD ONC ARIA SESSION SUMMARY 01/09/2019 10:45 AM BLOCKER AND POLISHER documented in this encounter Results * RAD ONC ARIA SESSION SUMMARY (01/09/2019 10:45 AM BLOCKER AND POLISHER) Course Name C1 L BRS MS 2019 ARIA Course Plan Date 12/30/2018 12:25 PM ARIA Elapsed Days 1 ARIA Treatment Start Date 01/08/2019 ARIA Treatment Site LT BRST ARIA Dose Given To Date (cGy) 532 ARIA Session Dosage Given (cGy) 266 ARIA Plan ID LT BRST:1 ARIA Fractions Treated 2 ARIA Prescribed Dose Per Fraction (cGy) 266 ARIA Prescribed Total Dose (cGy) 4,256 ARIA 01/09/2019 10:4 5 AM BLOCKER AND POLISHER us Not In File Miscellaneous RADIATION ONCOLOGY ORD ERABLES Final Result ARIA documented in this encounter Visit Diagnoses Not on filedocumented in this encounter Care Teams Senior Account Executive Relationship Specialty Start Date End Date Francisco Long MD PCP - General 02/23/17 05/15/22 Neil Ag MD PhD [address] [place] [address] Radiation Oncologist Radiation Oncology 12/17/18 [place] [address] [address] Referring Physician General Surgery 12/17/18 [place] [address] [facility] [address] [place] [address] Medical Oncologist/Voice Network Administrator Medical Oncology 12/17/18 documented as of this encounter
--- OUTSIDE RECORDS SUMMARY | 2024-11-16 15:46 | XMS_ITS | Encounter Summary ---
Author Organization [facility] Address [address] [facility] [place] [address] Care Team Providers Care Flag Signalman Name Role Phone Francisco Long MD Primary Care Provider Neil Ag MD PhD Unavailable [phone] Ita Vazquez MD Unavailable Caron Mohan MD Unavailable [phone] Encounter Details Date Type Department Care Team (Late st Contact Info) Description 11/22/2018 Telephone [facility] [address] [facility] [address] [place] [address] Francisco Long MD [address] [place] [address] Social History Tobacco Use Types Packs/Day Years Used Date Smoking Tobacco: Never Smokeless Tobacco: Never Alcohol Use Standard Drinks/Week Comments No 0 (1 standard drink = 0.6 oz pur e alcohol) Comments Unknown Sex and Gender Information Value Date Recorded Sex Assigned at Not on file Legal Sex Female 12:21 PM GRAVURE PRINTING MACHINIST Gender Identity Not on file Sexual Orientation Not on file documented as of this encounter Miscellaneous Notes * Telephone Encounter - Josi Umaña MA - 11/22/2018 2:05 PM CST jr URE PRINTING MACHINIST * Telephone Encounter - Yuli Lopez - 11/22/2018 1:51 PM CST FYI - Pt called to let Dr Long know that she had her lumpectomy went well today and she will know the results next week. URE PRINTING MACHINIST documented in this encounter Plan of Treatment Not on file documented as of this encounter Visit Diagnoses Not on filedocumented in this encounter Care Teams Flag Signalman Relationship Specialty Start Date End Date Francisco Long MD PCP - General 02/23/17 05/15/22 Neil Ag MD PhD [address] [place] [address] Radiation Oncologist Radiation Oncology 12/17/18 [place] [address] [facility] [address] [place], [place] [id number] Referring Physician General Surgery 12/17/18 [place] [address] [facility] [address] [place], [place] [id number] Medical Oncologist/Venetian Blind Washer Medical Oncology 12/17/18 documented as of this encounter
--- OUTSIDE RECORDS SUMMARY | 2024-11-16 15:46 | XMS_ITS | Encounter Summary ---
Author Organization [facility] Healthcare Address [address] [place] [address] Care Team Providers Care Second Time Worker Name Role Phone Francisco Long MD Primary Care Provider [phone] Neil Ag MD PhD Unavailable [phone] Ita Vazquez MD Unavailable Caron Mohan MD Unavailable Encounter Details Date Type Department Care Team (Late st Contact Info) Description 01/08/2019 [facility] Radiation Oncology [address] [place] [address] Neil Ag MD PhD [address] [place] [address] Malignant neoplasm of upper-inner quadrant of left [...] on file Legal Sex Female 12:21 PM HEALTHCARE ADVISORY SERVICES MANAGER Gender Identity Not on file Sexual Orientation Not on file documented as of this encounter Last Filed Vital Signs Vital Sign Reading Time Taken Comments Blood Pressure 167/77 01/08/2019 10:50 AM HEALTHCARE ADVISORY SERVICES MANAGER Pulse 83 01/08/2019 10:50 AM HEALTHCARE ADVISORY SERVICES MANAGER Temperature 36.4 ??C (97.6 ??F) 01/08/2019 10:[address] Respiratory Rate 18 01/08/2019 10:50 AM HEALTHCARE ADVISORY SERVICES MANAGER Oxygen Saturation - - Inhaled Oxygen Concentration - - Weight 84.8 kg (187 lb) 01/08/2019 10:50 AM HEALTHCARE ADVISORY SERVICES MANAGER Height - - Body Mass Index 29.73 12/17/2018 2:50 PM HEALTHCARE ADVISORY SERVICES MANAGER documented in this encounter Progress Notes [...] IA (pT1b, pN1mi(sn), cM0, G2, ER: Positive, SD: Positive, HER2: Negative) - Signed by Neil [...] pain that requires changes in pain management. THCARE ADVISORY SERVICES MANAGER documented in this encounter Plan of Treatment Not on file documented as of this encounter Visit Diagnoses Diagnosis Malignant neoplasm of upper-inner quadrant of left breast in female, estrogen receptor positive (HCC)- Primary documented in this encounter Care Teams Second Time Worker Relationship Specialty Start Date End Date Francisco Long MD PCP - General 02/23/17 05/15/22 Neil Ag MD PhD [address] [place] [address] Radiation Oncologist Radiation Oncology 12/17/18 [place] [address] [facility] [address] [place] [address] Referring Physician General Surgery 12/17/18 [place] [address] [facility] [address] [place], [place] [id number] Medical Oncologist/Jewelry Cutter Medical Oncology 12/17/18 documented as of this encounter
--- OUTSIDE RECORDS SUMMARY | 2024-11-16 15:46 | XMS_ITS | Encounter Summary ---
Author Organization [facility] Healthcare Address [address] [place] [address] Care Team Providers Care Auxiliary Operator Name Role Phone Francisco Long MD Primary Care Provider [phone] Neil Ag MD PhD Unavailable [phone] Ita estrada MD Unavailable Caron Mohan MD Unavailable [phone] Encounter Details Date Type Department Care Team [...] on file Legal Sex Female 12:21 PM PROFESSIONAL BONDSMAN Gender Identity Not on file Sexual Orientation Not on file documented as of this encounter Plan of Treatment Not on file documented as of this encounter Procedures Procedure Name Priority Date/Time Associated Diagnosis Comments RAD ONC ARIA SESSION SUMMARY 01/10/2019 10:38 AM PROFESSIONAL BONDSMAN documented in this encounter Results * RAD ONC ARIA SESSION SUMMARY (01/10/2019 10:38 AM PROFESSIONAL BONDSMAN) Course Name C1 L BRS [place] 2019 [...] (cGy) 4,256 ARIA 01/10/2019 10:3 8 AM PROFESSIONAL BONDSMAN us Not In File Miscellaneous RADIATION ONCOLOGY ORD ERABLES Final Result ARIA documented in this encounter Visit Diagnoses Not on filedocumented in this encounter Care Teams Auxiliary Operator Relationship Specialty Start Date End Date Francisco Long MD PCP - General 02/23/17 05/15/22 Neil Ag MD PhD [address] [place] [address] Radiation Oncologist Radiation Oncology 12/17/18 [place] [address] [address] Referring Physician General Surgery 12/17/18 [place] [address] [facility] [address] [place] [address] Medical Oncologist/Prison Warden Medical Oncology 12/17/18 documented as of this encounter
--- OUTSIDE RECORDS SUMMARY | 2024-11-16 15:46 | XMS_ITS | Encounter Summary ---
Author Organization [facility] Healthcare Address [address] [place] [address] Care Team Providers Care Griddle Cook Name Role Phone Francisco Long MD Primary Care Provider [phone] Neil Ag MD PhD Unavailable [phone] Ita Vazquez MD Unavailable Caron Mohan MD Unavailable Encounter Details Date Type Department Care Team (Late st Contact Info) Description 01/13/2019 10:30 AM BROADCAST OPERATIONS DIRECTOR Treatment [facility] Radiation Oncology [address] [place] [address] Social History Tobacco Use Types Packs/Day Years Used Date Smoking Tobacco: Never Smokeless Tobacco: Never Alcohol Use Standard Drinks/Week Comments No 0 (1 standard drink = 0.6 oz pur e alcohol) Comments Unknown Sex and Gender Information Value Date Recorded Sex Assigned at Not on file Legal Sex Female 12:21 PM BROADCAST OPERATIONS DIRECTOR Gender Identity Not on file Sexual Orientation Not on file documented as of this encounter Plan of Treatment Not on file documented as of this encounter Visit Diagnoses Not on filedocumented in this encounter Care Teams Griddle Cook Relationship Specialty Start Date End Date Francisco Long MD PCP - General 02/23/17 05/15/22 Neil Ag MD PhD [address] [place] [address] Radiation Oncologist Radiation Oncology 12/17/18 [place] [address] [id number] Referring Physician General Surgery 12/17/18 [place] [address] [address] Medical Oncologist/Hoop Punch Operator Helper Medical Oncology 12/17/18 documented as of this encounter
--- OUTSIDE RECORDS SUMMARY | 2024-11-16 15:47 | XMS_ITS | Encounter Summary ---
Author Organization [facility] Address [address] [facility] [address] [place] [address] Care Team Providers Care Talent Acquisition Assistant Name Role Phone Francisco Long MD Primary Care Provider [phone] Encounter Details Date Type Department Care Team (Late st Contact Info) Description 04/12/2018 Telephone [facility] [address] [facility] [address] [place] [address] Larry Wetzel PA [address] 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
--- OUTSIDE RECORDS SUMMARY | 2024-11-16 15:47 | XMS_ITS | Encounter Summary ---
Author Organization [facility] Healthcare Address [address] [place] [address] Care Team Providers Care Lead Programmer Name Role Phone Inez Long MD Primary Care Provider [phone] Encounter Details Date Type Department Care Team (Late st Contact Info) Description 05/25/2017 10:02 AM CDT - 05/25/2017 11:59 PM CDT Hospital Encounter [facility] Inez Long MD [address] [place] [address] Discharge Disposition: Discharge to home or self care Social History Tobacco Use Types Packs/Day Years Used Date Smoking Tobacco: Never Alcohol Use Standard Drinks/Week Comments No 0 (1 standard drink = 0.6 oz pur e alcohol) Comments Unknown Sex and Gender Information Value Date Recorded Sex Assigned at Not on file 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 [...] ??SELF, REFERRAL Requesting Fax: ??-- Attending Fax: ??[phone] Attending ID: ??[id number] Requesting ID: ??[id number] Report To 1 ID: ??[id number] Report To 1 Name: ??DR INEZ LONG Report To 1 FAX: ??[phone] [facility] Order #: ?? Procedure Note Miscellaneous, Not In File / Provider, MD Annabelle - 05/28/2017 SCREENING MAMM W CATHY BI Acc#: [id number] DATE OF EXAM: May 25 2017 SCREENING [...] REFERRAL Requesting Fax: -- Attending Attending ID: [id number] Requesting ID: [id number] Report To 1 ID: [id number] Report To 1 Name: DR INEZ LONG Report To 1 FAX: [phone] [facility] Order #: us Not In File Miscellaneous IMG MAMMO PROCEDURES F inal Result * SCAN - RADIOLOGY/IMAGING (05/25/2017) Anatomical Region Laterality Modality Other us Provider Scanning Final Result documented in this encounter Visit Diagnoses Not on filedocumented in this encounter Care Teams Lead Programmer Relationship Specialty Start Date End Date Inez Long MD PCP - General 02/23/17 05/15/22 documented as of this encounter
--- OUTSIDE RECORDS SUMMARY | 2024-11-16 15:47 | XMS_ITS | Encounter Summary ---
Author Organization [facility] Address [address] [address] Care Team Providers Care Quarter Doper Name Role Phone Francisco Long MD Primary Care Provider [phone] Reason for Referral * Diagnostic Imaging (Routine) - Closed Specialty Diagnoses / Procedures Referred By Halima garcia Referred To Contact Diagnoses Acute right-sided thoracic back pain Procedures US Kidney Complete Larry Kruger PA Phone: tel: fax: [address] [phone] Referral ID Status Reason Start Date Expiration Date Visits Re quested Visits Authorized [id number] Closed 03/04/2018 08/31/2018 1 1 * Diagnostic Imaging (Routine) - Closed Specialty Diagnoses / Procedures Referred By Halima garcia Referred To Contact Diagnoses Murmur, heart Procedures Transthoracic Echo Complete W Doppler/CF Larry Kruger PA Phone: tel: fax: [address] [phone] Referral ID Status Reason Start Date Expiration Date Visits Re quested Visits Authorized [id number] Closed 03/04/2018 08/31/2018 1 1 Reason for Visit * Reason Comments Back Pain Encounter Details Date Type Department Care Team (Late st Contact Info) Description 03/04/2018 10:00 AM CDT Office Visit [facility] [address] [facility] [address] [place] [address] Larry Kruger PA 2 [facility] [address] [place] [address] Acute right-sided thoracic back pain (Primary Dx); [...] file Legal Sex Female 12:21 PM PRODUCTION FLOATER Gender Identity Not on file Sexual Orientation [...] Body Mass Index 29.91 11/28/2017 10:03 AM PRODUCTION FLOATER documented in this encounter Progress Notes * [...] AM CDT Narrative 03/19/2018 6:40 PM CDT [address] [place] [address] Echocardiogram Report Patient Name: JOLENE GORDON G : 1945 Study Date: 03/19/2018 10:36:34 Gender: F Tech: NEEDLE GRADER Location: Echo lab 2 Ref.Physician: LARRY KRUGER [...] Procedure Note Mitchell Valle MD - 03/19/[address] [address] Echocardiogram Report Patient Name: JOLENE GORDON GPatient ID: [id number] : [id number] Date: 03/19/2018 10:36:34 Gender: FAccession #: [id number] Tech: NPLocation: Echo lab 2 Ref.Physician: Ally [...] 20 - 100 ] msec MV Decel [id number] [ 104 - 258 ] msec PV [...] 12/17/2018 added in this encounter Care Teams Quarter Doper Relationship Specialty Start Date End Date Francisco Long MD PCP - General 02/23/17 05/15/22 documented as of this encounter
--- OUTSIDE RECORDS SUMMARY | 2024-11-16 15:47 | XMS_ITS | Encounter Summary ---
Author Organization [facility] Address [address] [facility] [address] [place] [address] Care Team Providers Care Director Of Category Management Name Role Phone Francisco Long MD Primary Care Provider [phone] Encounter Details Date Type Department Care Team (Late st Contact Info) Description 03/20/2018 Telephone [facility] 2 [facility] [address] [place] [address] Francisco Long MD 2 [facility] [address] [place] [address] Social History Tobacco Use Types Packs/Day Years Used Date Smoking Tobacco: Never Smokeless Tobacco: Never Alcohol Use Standard Drinks/Week Comments No 0 (1 standard drink = 0.6 oz pur e alcohol) Comments Unknown Sex and Gender Information Value Date Recorded Sex Assigned at Not on file 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
--- OUTSIDE RECORDS SUMMARY | 2024-11-16 15:47 | XMS_ITS | Encounter Summary ---
Author Organization [facility] Healthcare Address [address] [place] [address] Care Team Providers Care Pocket And Pulley Machine Operator Name Role Phone Francisco Long MD Primary Care Provider [phone] Encounter Details Date Type Department Care Team (Late st Contact Info) Description 11/03/2016 9:11 AM BRIDGE IRONWORKER - 11/03/2016 11:59 PM [facility] Hospital Encounter [facility] Francisco Long MD [address] [place] [address] [address] Iron deficiency anemia; Mixed hyperlipidemia; Essential (primary) hypertension; Abnormal finding in urine Social History Tobacco Use Types Packs/Day Years Used Date Smoking Tobacco: Never Alcohol Use Standard Drinks/Week Comments No 0 (1 standard drink = 0.6 oz pur e alcohol) Comments Unknown Sex and Gender Information Value Date Recorded Sex Assigned at Not on file Legal Sex Female 12:21 PM BRIDGE IRONWORKER Gender Identity Not on file Sexual Orientation [...] URINE MICROBIOLOGY Routine 11/03/2016 12 :00 AM BRIDGE IRONWORKER documented in this encounter Results * Urine Microbiology (11/03/2016 12:00 AM BRIDGE IRONWORKER) 11/03/2016 Narrative CDR HISTORICAL RESULTS - 11/05/2016 4:45 PM BRIDGE IRONWORKER [facility] ?Patient Name: ?SHAUNA GORDON ?Med. Rec#: ?? [id number] ?Pt. Acct.#: ??[id number] ?Birthdate: ?? 1945 ?Age / Sex: ?? [...] urine documented in this encounter Care Teams Pocket And Pulley Machine Operator Relationship Specialty Start Date End Date Francisco Long MD PCP - General 09/19/13 02/22/17 documented as of this encounter
--- OUTSIDE RECORDS SUMMARY | 2024-11-16 15:47 | XMS_ITS | Encounter Summary ---
Author Organization [facility] Address [address] [facility] [address] [place] [address] Care Team Providers Care Injection Maintenance Technician Name Role Phone Francisco Long MD Primary Care Provider [phone] Encounter Details Date Type Department Care Team (Late st Contact Info) Description 03/19/2018 Telephone [facility] [address] [facility] [address] [place] [address] Francisco Long MD 2 [facility] [address] [place] [address] Social History Tobacco Use Types Packs/Day Years Used Date Smoking Tobacco: Never Smokeless Tobacco: Never Alcohol Use Standard Drinks/Week Comments No 0 (1 standard drink = 0.6 oz pur e alcohol) Comments Unknown Sex and Gender Information Value Date Recorded Sex Assigned at Not on file Legal Sex Female 12:21 PM BANK REPRESENTATIVE Gender Identity Not on file Sexual Orientation Not on file documented as of this encounter Miscellaneous Notes * Telephone Encounter - Janna Gonsales - 03/19/2018 3:15 PM CDT Pt notified. * Telephone Encounter - Janna Gonsales - 03/19/2018 3:15 PM CDT ----- [...] on filedocumented in this encounter Care Teams Injection Maintenance Technician Relationship Specialty Start Date End Date Francisco Long MD PCP - General 02/23/17 05/15/22 documented as of this encounter
--- OUTSIDE RECORDS SUMMARY | 2024-11-16 15:47 | XMS_ITS | Encounter Summary ---
Author Organization [facility] Address [address] [facility] [address] [place] [address] Care Team Providers Care Public Health Worker Name Role Phone Francisco Long MD Primary Care Provider [phone] Encounter Details Date Type Department Care Team (Late st Contact Info) Description 11/12/2017 Telephone [facility] 2 [facility] [address] [place] [address] Francisco Long MD 2 [facility] [address] [place] [address] Social History Tobacco Use Types Packs/Day Years Used Date Smoking Tobacco: Never Alcohol Use Standard Drinks/Week Comments No 0 (1 standard drink = 0.6 oz pur e alcohol) Comments Unknown Sex and Gender Information Value Date Recorded Sex Assigned at Not on file Legal Sex Female 12:21 PM ECONOMETRICIAN Gender Identity Not on file Sexual Orientation Not on file documented as of this encounter Miscellaneous Notes * Telephone Encounter - Rivka Valdez MA - 11/12/2017 1:39 PM CST Schedule not yet open for 12-01-17 or 12-08-17 OMETRICIAN * Telephone Encounter - Francisco Long MD - 11/12/2017 8:13 AM CST Patient is scheduled for physical November 27 I am out of the office that morning see if she would be willing to come in SundayDecember 01 or December 08 for physical OMETRICIAN documented in this encounter Plan of Treatment Not on file documented as of this encounter Visit Diagnoses Not on filedocumented in this encounter Care Teams Public Health Worker Relationship Specialty Start Date End Date Francisco Long MD PCP - General 02/23/17 05/15/22 documented as of this encounter
--- OUTSIDE RECORDS SUMMARY | 2024-11-16 15:47 | XMS_ITS | Encounter Summary ---
Author Organization [facility] Healthcare Address [address] [place] [address] Care Team Providers Care Escalation Engineer Name Role Phone Francisco Long MD Primary Care Provider [phone] Reason for Referral * Diagnostic Imaging (Routine) - Closed Specialty Diagnoses / Procedures Referred By Halima garcia Referred To Contact Diagnoses Screening breast examination Procedures Diagnostic Mammogram Left W Micki Cordova MD Phone: tel: fax: [address] [phone] Referral ID Status Reason Start Date Expiration Date Visits Re quested Visits Authorized [id number] Closed 09/03/2018 03/14/2020 1 1 * Diagnostic Imaging (Routine) - Closed Specialty Diagnoses / Procedures Referred By Halima garcia Referred To Contact Diagnoses Screening breast examination Procedures Screening Mammogram Bilateral W Micki Cordova MD Phone: tel: fax: [address] [phone] Referral ID Status Reason Start Date Expiration Date Visits Re quested Visits Authorized [id number] Closed 08/26/2018 03/06/2020 1 1 Reason for Visit * Diagnostic Imaging (Routine) - Closed Specialty Diagnoses / Procedures Referred By Contac t Referred To Contact Diagnoses Screening breast examination Procedures Screening Mammogram Bilateral W Moody Micki Cadena MD Phone: tel: fax: [address] [phone] Referral ID Status Reason Start Date Expiration Date Visits Re quested Visits Authorized [id number] Closed 08/26/2018 03/06/2020 1 1 Encounter Details Date Type Department Care Team (Latest Contact Info) Description 09/03/2018 10:52 AM CDT - 09/03/2018 11:59 PM CDT Hospital Encounter [facility] [address] [place] [address] [place] [address] [place] [address] Screening breast examination Discharge Disposition: Discharge to home or self care Social History Tobacco Use Types Packs/Day Years Used Date Smoking Tobacco: Never Smokeless Tobacco: Never Alcohol Use Standard Drinks/Week Comments No 0 (1 standard drink = 0.6 oz pur e alcohol) Comments Unknown Sex and Gender Information Value Date Recorded Sex Assigned at Not on file 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 Sex Female 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 Gender Identity Not on file Sexual [...] Procedure Name Priority Date/Time Associated Diagnosis Comments SCREENING MAMMOGRAM BILATERAL W MOODY Schedule Routine, Read Routine (OP Routine) 09/03/2018 12:00 PM CDT Screening breast examination DIAGNOSTIC MAMMOGRAM LEFT W MOODY Schedule Routine, Read Routine (OP Routine) 09/03/2018 12:00 PM CDT Screening breast examination documented in this encounter Results * (ABNORMAL) Diagnostic Mammogram Left W Moody (09/03/2018 12:00 PM CDT) Anatomical Region Laterality Modality Breast Left Mammography 09/03/2018 12:0 1 PM CDT Impressions 09/03/2018 12:01 PM CDT BIRADS Category 0: Incomplete - Needs additional imaging evaluation. Left breast ultrasound. Digital technology was employed plus computer-aided detection software (R2) was utilized in interpretation of these images. This facility utilizes a reminder system to notify patients of yearly mammograms. Electronically signed by: Alfonso Dickens M.D. Narrative 09/03/2018 12:01 PM CDT EXAMINATION: Digital screening mammogram with tomosynthesis and diagnostic left breast mammogram. HISTORY: Screening mammogram converted to a diagnostic mammogram PRIOR: 05/25/2017 and 03/28/2016 DENSITY: Heterogeneously dense which could obscure small masses FINDINGS: A new irregularly marginated 16 mm structure is seen in the left inner breast at the 9 o'clock position 7 cm deep to the nipple. ??A 1.7 cm nodular density in the left subareolar breast is stable. ??No new dominant mass, architectural distortion, nipple retraction, skin thickening, or suspicious calcifications are seen on the right. Coarse benign breast calcifications are reidentified. A diagnostic left breast mammogram was performed. ??The irregularly marginated structure in the left inner breast persists. ??Further evaluation with ultrasound is recommended. us Micki Cadena MD IMG MAMMO PROCEDURES Final R esult * (ABNORMAL) Screening Mammogram Bilateral W Moody (09/03/2018 12:00 PM CDT) Anatomical Region Laterality Modality Breast Bilateral Mammography 09/03/2018 11:5 9 AM CDT Impressions 09/03/2018 12:01 PM CDT BIRADS Category 0: Incomplete - Needs additional imaging evaluation. Left breast ultrasound. Digital technology was employed plus computer-aided detection software (R2) was utilized in interpretation of these images. This facility utilizes a reminder system to notify patients of yearly mammograms. Electronically signed by: Alfonso Dickens M.D. Narrative 09/03/2018 12:01 PM CDT EXAMINATION: Digital screening mammogram with tomosynthesis and diagnostic left breast mammogram. HISTORY: Screening mammogram converted to a diagnostic mammogram PRIOR: 05/25/2017 and 03/28/2016 DENSITY: Heterogeneously dense which could obscure small masses FINDINGS: A new irregularly marginated 16 mm structure is seen in the left inner breast at the 9 o'clock position 7 cm deep to the nipple. ??A 1.7 cm nodular density in the left subareolar breast is stable. ??No new dominant mass, architectural distortion, nipple retraction, skin thickening, or suspicious calcifications are seen on the right. Coarse benign breast calcifications are reidentified. A diagnostic left breast mammogram was performed. ??The irregularly marginated structure in the left inner breast persists. ??Further evaluation with ultrasound is recommended. us Micki Cadena MD IMG MAMMO PROCEDURES Final R esult documented in this encounter Visit Diagnoses Diagnosis Screening breast examination Other screening breast examination documented in this encounter Care Teams Escalation Engineer Relationship Specialty Start Date End Date Francisco Long MD PCP - General 02/23/17 05/15/22 documented as of this encounter
--- OUTSIDE RECORDS SUMMARY | 2024-11-16 15:47 | XMS_ITS | Encounter Summary ---
Author Organization [facility] Address [address] [facility] [address] [place] [address] Care Team Providers Care Inbound Call Center Agent Name Role Phone Francisco Long MD Primary Care Provider [phone] Encounter Details Date Type Department Care Team (Late st Contact Info) Description 11/13/2017 8:15 AM EXTERMINATION SUPERVISOR Lab [facility] [address] [facility] [address] [place] [id number] Benign hypertension Social History Tobacco Use Types Packs/Day Years Used Date Smoking Tobacco: Never Alcohol Use Standard Drinks/Week Comments No 0 (1 standard drink = 0.6 oz pur e alcohol) Comments Unknown Sex and Gender Information Value Date Recorded Sex Assigned at Not on file Legal Sex Female 12:21 PM EXTERMINATION SUPERVISOR Gender Identity Not on file Sexual Orientation Not on file documented as of this encounter Plan of Treatment Not on file documented as of this encounter Visit Diagnoses Diagnosis Benign hypertension Essential hypertension, benign documented in this encounter Care Teams Inbound Call Center Agent Relationship Specialty Start Date End Date Francisco Long MD PCP - General 02/23/17 05/15/22 documented as of this encounter
--- OUTSIDE RECORDS SUMMARY | 2024-11-16 15:47 | XMS_ITS | Encounter Summary ---
Author Organization [facility] Healthcare Address [address] [place] [address] Care Team Providers Care Security Rover Name Role Phone Francisco Long MD Primary Care Provider [phone] Encounter Details Date Type Department Care Team (Late st Contact Info) Description 2017 8:50 PM HARVESTING MANAGER Lab [address] [address] Pyuria Social History Tobacco Use Types Packs/Day Years Used Date Smoking Tobacco: Never Smokeless Tobacco: Never Alcohol Use Standard Drinks/Week Comments No 0 (1 standard drink = 0.6 oz pur e alcohol) Comments Unknown Sex and Gender Information Value Date Recorded Sex Assigned at Not on file Legal Sex Female 12:21 PM HARVESTING MANAGER Gender Identity Not on file Sexual Orientation Not on file documented as of this encounter Plan of Treatment Not on file documented as of this encounter Procedures Procedure Name Priority Date/Time Associated Diagnosis Comments URINALYSIS AND REFLEX TO MICROSCOPIC AND CULTURE Routine 2017 12:52 PM HARVESTING MANAGER Pyuria documented in this encounter Results * Urinalysis reflex to microscopic and culture (2017 12:52 PM HARVESTING MANAGER) Color, ur Yellow [facility] Clarity, [...] [facility] Urine 2017 12:5 2 PM HARVESTING MANAGER 2017 8:53 PM HARVESTING MANAGER Narrative [facility] - 2017 9:13 PM HARVESTING MANAGER Francisco Long MD LAB MICROBIOLOGY - GENERAL ORD ERABLES Final Result [facility] [address] [place] [address] documented in this encounter Visit Diagnoses Diagnosis Pyuria Other nonspecific finding on examination of urine documented in this encounter Care Teams Security Rover Relationship Specialty Start Date End Date Francisco Long MD PCP - General 02/23/17 05/15/22 documented as of this encounter
--- OUTSIDE RECORDS SUMMARY | 2024-11-16 15:47 | XMS_ITS | Encounter Summary ---
Author Organization [facility] Healthcare Address [address] [place] [address] Care Team Providers Care Copy And Print Associate Name Role Phone Francisco Long MD Primary Care Provider [phone] Encounter Details Date Type Department Care Team (Late st Contact Info) Description 11/13/2017 2:55 PM DATA TRANSCRIBER Lab [address] [address] Benign hypertension Social History Tobacco Use Types Packs/Day Years Used Date Smoking Tobacco: Never Alcohol Use Standard Drinks/Week Comments No 0 (1 standard drink = 0.6 oz pur e alcohol) Comments Unknown Sex and Gender Information Value Date Recorded Sex Assigned at Not on file Legal Sex Female 12:21 PM DATA TRANSCRIBER Gender Identity Not on file Sexual Orientation Not on file documented as of this encounter Plan of Treatment Not on file documented as of this encounter Procedures Procedure Name Priority Date/Time Associated Diagnosis Comments EGFR Routine 11/13/2017 8:20 AM DATA TRANSCRIBER Benign hypertension DIFFERENTIAL AUTO Routine 11/13/2017 8:2 0 AM DATA TRANSCRIBER Benign hypertension LIPID PANEL WITH REFLEX TO DIRECT LDL Routine 11/13/2017 8:20 AM DATA TRANSCRIBER Benign hypertension URINALYSIS AND REFLEX TO MICROSCOPIC AND CULTURE Routine 11/13/2017 8:20 AM DATA TRANSCRIBER Benign hypertension CBC WITH AUTO DIFFERENTIAL Routine 11/13/2017 8:20 AM DATA TRANSCRIBER Benign hypertension URINALYSIS, MICROSCOPIC ONLY Routine 11/13/2017 8:20 AM DATA TRANSCRIBER Benign hypertension URINE CULTURE Routine 11/13/2017 8:20 AM DATA TRANSCRIBER COMPREHENSIVE METABOLIC PANEL Routine 11/13/2017 8:20 AM DATA TRANSCRIBER Benign hypertension documented in this encounter Results * Urine culture (11/13/2017 8:20 AM DATA TRANSCRIBER) Report Final Report: Insignifican t growth based on current clinical standards. MEHRAN Comment:Testing performed by : [facility], [address] [place]., [address] Urine 11/13/2017 8:20 AM DATA TRANSCRIBER 11/13/2017 5:36 PM DATA TRANSCRIBER Narrative MEHRAN - 11/14/2017 10:59 AM DATA TRANSCRIBER us Francisco Long MD LAB MICROBIOLOGY - GENERAL ORD ERABLES Final Result [facility] [address] [place] [address] * eGFR (11/13/2017 8:20 AM DATA TRANSCRIBER) eGFR 68 mL/min/1.7 3 m2 MEHRAN Comment: Interpretive Data Reference Interval Normal ?>/= 90 mL/min/1.73m2 Mildly decreased* ? 60 - 89 mL/min/1.73m2 Mildly to moderately decreased ?45 - 59 mL/min/1.73m2 Moderately to severely decreased ??30 - 44 mL/min/1.73m2 Severely decreased ?15 - 29 mL/min/1.73m2 Kidney Failure ?< 15 ??mL/min/1.73m2 *Relative to young adult level If -Belarusian multiply value by 1.16. Estimated glomerular filtration [...] 2016. Blood specimen (specimen) 11/13/2017 8:20 AM DATA TRANSCRIBER 11/13/2017 3:16 PM DATA TRANSCRIBER Narrative MEHRAN - 11/13/2017 3:35 PM DATA TRANSCRIBER Francisco Long MD LAB BLOOD ORDERABLES Final Res ult Performing Organization Address [facility] Phone Number MEHRAN [address] [place] [address] * (ABNORMAL) Urinalysis, microscopic only (11/13/2017 8:20 AM DATA TRANSCRIBER) RBC, ur 2 0 - 3 /HPF C[facility]ER WBC, ur 18(H) 0 - 5 /HPF [facility] Bacteria, ur 0 [facility] Epithelial cells, renal, ur 0 0 - 0 /HPF [facility] Epithelial cells, squamous, ur <1 /LPF [facility] Mucus, ur Present [facility] Urine 11/13/2017 8:20 AM DATA TRANSCRIBER 11/13/2017 3:07 PM DATA TRANSCRIBER Narrative MEHRAN - 11/13/2017 3:42 PM DATA TRANSCRIBER Francisco Long MD LAB URINE ORDERABLES Final Res ult Performing Organization Address [facility] Co de Phone Number MEHRAN [address] [place] [address] [place] [address] * (ABNORMAL) Differential, auto (11/13/2017 8:20 AM DATA TRANSCRIBER) Neutrophil pct 72.1 % C[facility]ER Imm gran [...] CH Blood specimen (specimen) 11/13/2017 8:20 AM DATA TRANSCRIBER 11/13/2017 3:07 PM DATA TRANSCRIBER Narrative [facility] CH - 11/13/2017 3:20 PM DATA TRANSCRIBER Francisco Long MD LAB BLOOD ORDERABLES Final Res ult [facility] [address] [place] [address] * (ABNORMAL) Lipid panel with reflex to direct LDL (11/13/2017 8:20 AM DATA TRANSCRIBER) Cholesterol 213(H) 100 - 200 mg/dL CERNER [...] CH Blood specimen (specimen) 11/13/2017 8:20 AM DATA TRANSCRIBER 11/13/2017 3:07 PM DATA TRANSCRIBER Narrative [facility] CH - 11/13/2017 3:35 PM DATA TRANSCRIBER us Francisco Long MD LAB BLOOD ORDERABLES Final Res ult [facility] [address] [place] [address] * (ABNORMAL) Urinalysis reflex to microscopic and culture (11/13/2017 8:20 AM DATA TRANSCRIBER) Color, ur Yellow [facility] CH Clarity, ur [...] Negative [facility] CH Urine 11/13/2017 8:20 AM DATA TRANSCRIBER 11/13/2017 3:07 PM DATA TRANSCRIBER Narrative [facility] CH - 11/13/2017 3:34 PM DATA TRANSCRIBER Francisco Long MD LAB MICROBIOLOGY - GENERAL ORD ERABLES Final Result [facility] [address] [place] [address] * (ABNORMAL) CBC with auto differential (11/13/2017 8:20 AM DATA TRANSCRIBER) WBC 5.46 3.80 - 9.90 K/cumm [facility] RBC 4.66 3.90 - 5.20 M/cumm [facility] Hgb 12.6 11.9 - 15.5 g/dL [facility] Hct 41.3 35.6 - 45.5 % [facility] MCV 88.6 81.3 - 96.4 fL [facility] MCH 27.0(L) 27.1 - 33.[address] [facility] MCHC 30.5(L) 32.3 - 35.7 g/dL [facility] RDW CV 16.9(H) 11.1 - 14.9 % [facility] RDW SD 53.5(H) 35.7 - 48.1 fL [facility] Plt 220 150 - 400 K/cumm [facility] MPV 10.7 9.1 - 12.3 fL [facility] NRBC 0.0 0.0 - 0.2 % [facility] NRBC abs 0.00 0.00 - 0.01 K/cumm [facility] Blood specimen (specimen) 11/13/2017 8:20 AM DATA TRANSCRIBER 11/13/2017 3:07 PM DATA TRANSCRIBER Narrative [facility] - 11/13/2017 3:20 PM DATA TRANSCRIBER Francisco Long MD LAB BLOOD ORDERABLES Final Res ult [facility] [address] [place] [address] * Comprehensive metabolic panel (11/13/2017 8:20 AM DATA TRANSCRIBER) Sodium 139 135 - 145 mmol/L [facility] Potassium, pl 3.9 3.5 - 5.1 mmol/L [...] CH Blood specimen (specimen) 11/13/2017 8:20 AM DATA TRANSCRIBER 11/13/2017 3:07 PM DATA TRANSCRIBER Narrative [facility] - 11/13/2017 3:35 PM DATA TRANSCRIBER Francisco Long MD LAB BLOOD ORDERABLES Final Res ult [facility] [address] [place] [address] documented in this encounter Visit Diagnoses Diagnosis Benign hypertension Essential hypertension, benign documented in this encounter Care Teams Copy And Print Associate Relationship Specialty Start Date End Date Francisco Long MD PCP - General 3/31/17 6/20/22 documented as of this encounter
--- OUTSIDE RECORDS SUMMARY | 2024-11-16 15:47 | XMS_ITS | Encounter Summary ---
Author Organization [facility] Medical Group Address [address] [place] [address] Care Team Providers Care Phlebotomy Instructor Name Role Phone Francisco Long MD Primary Care Provider [phone] Reason for Visit * Reason Comments Medicare Wellness subsequent Encounter Details Date Type Department Care Team (Late st Contact Info) Description 11/28/2017 10:00 AM ENDOCRINOLOGY SPECIALIST Office Visit [facility] [address] [place] [address] Francisco Long MD [address] [place] [address] [address] [place] [address] Medicare annual wellness visit, subsequent (Primary Dx); BMI 30.0-30.9,adult; Essential hypertension; Mixed hyperlipidemia; 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 rheumatoid factor ([facility]); Pyuria, sterile; Pre-diabetes Social History Tobacco Use Types Packs/Day Years Used Date Smoking Tobacco: Never Smokeless Tobacco: Never Alcohol Use Standard Drinks/Week Comments No 0 (1 standard drink = 0.6 oz pur e alcohol) Comments Unknown Sex and Gender Information Value Date Recorded Sex Assigned at Not on file Legal Sex Female 12:21 PM ENDOCRINOLOGY SPECIALIST Gender Identity Not on file Sexual Orientation Not on file documented as of this encounter Last Filed Vital Signs Vital Sign Reading Time Taken Comments Blood Pressure 120/70 11/28/2017 10:03 AM ENDOCRINOLOGY SPECIALIST Pulse 64 11/28/2017 10:03 AM ENDOCRINOLOGY SPECIALIST Temperature - - Respiratory Rate 18 11/28/2017 10:03 AM ENDOCRINOLOGY SPECIALIST Oxygen Saturation - - Inhaled Oxygen Concentration - - Weight 87.5 kg (193 lb) 11/28/2017 10:03 AM ENDOCRINOLOGY SPECIALIST Height 170.2 cm (5' 7 ) 11/28/2017 10:03 AM ENDOCRINOLOGY SPECIALIST Body Mass Index 30.23 11/28/2017 10:03 AM ENDOCRINOLOGY SPECIALIST documented in this encounter Progress Notes * Francisco Long MD - 11/28/2017 10:00 AM CST Subjective/Objective Patient ID: Jolene Cedillo is a 71 y.o. female. 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 CRINOLOGY SPECIALIST documented in this encounter Plan of [...] involving multiple sites with positive rheumatoid factor ([facility]) ([facility]) Pyuria, sterile Other nonspecific finding on examination of urine Pre-diabetes Other abnormal glucose documented in this encounter Care Teams Phlebotomy Instructor Relationship Specialty Start Date End Date Francisco Long MD PCP - General 02/23/17 05/15/22 documented as of this encounter
--- OUTSIDE RECORDS SUMMARY | 2024-11-16 15:47 | XMS_ITS | Encounter Summary ---
Author Organization [facility] Healthcare Address [address] [place] [address] Care Team Providers Care Field Nurse Case Manager Name Role Phone Francisco Long MD Primary Care Provider [phone] Reason for Referral * Diagnostic Imaging (Routine) - Closed Specialty Diagnoses / Procedures Referred By Halima garcia Referred To Contact Diagnoses Murmur, heart Procedures Transthoracic Echo Complete W Doppler/CF Larry Wetzel PA Phone: tel: fax: [address] [phone] Referral ID Status Reason Start Date Expiration Date Visits Re quested Visits Authorized [id number] Closed 03/04/2018 08/31/2018 1 1 Reason for Visit * Diagnostic Imaging (Routine) - Closed Specialty Diagnoses / Procedures Referred By Halima garcia Referred To Contact Diagnoses Murmur, heart Procedures Transthoracic Echo Complete W Doppler/CF Larry Wetzel PA Phone: tel: fax: [address] [phone] Referral ID Status Reason Start Date Expiration Date Visits Re quested Visits Authorized [id number] Closed 03/04/2018 08/31/2018 1 1 Encounter Details Date Type Department Care Team (Latest Contact Info) Description 03/19/2018 10:12 AM CDT - 03/19/2018 12:28 PM CDT Hospital Encounter [facility] Cardiology [address] [place] [address] Larry Wetzel PA [address] [place] [address] Francisco Long MD [address] [place] [address] Murmur, heart Discharge Disposition: Discharge to home or self care Social History Tobacco Use Types Packs/Day Years Used Date Smoking Tobacco: Never Smokeless Tobacco: Never Alcohol Use Standard Drinks/Week Comments No 0 (1 standard drink = 0.6 oz pur e alcohol) Comments Unknown Sex and Gender Information Value Date Recorded Sex Assigned at Not on file Legal Sex Female 12:21 PM 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] 20 - 100 ] msec MV Decel [id number] [ 104 - 258 ] msec PV [...] murmurs documented in this encounter Care Teams Field Nurse Case Manager Relationship Specialty Start Date End Date Francisco Long MD PCP - General 02/23/17 05/15/22 documented as of this encounter
--- OUTSIDE RECORDS SUMMARY | 2024-11-16 15:47 | XMS_ITS | Encounter Summary ---
Author Organization [facility] Healthcare Address [address] [place] [address] Care Team Providers Care Med Specialist Name Role Phone Francisco Long MD Primary Care Provider [phone] Reason for Visit * Diagnostic Imaging (Routine) - Closed Specialty Diagnoses / Procedures Referred By Halima garcia Referred To Contact Diagnoses Abnormal mammogram Procedures US Breast Left Limited US Breast Left Complete Micki Cadena MD Phone: tel: fax: [address] [address] Referral ID Status Reason Start Date Expiration Date Visits Re quested Visits Authorized [id number] Closed 09/10/2018 03/21/2020 1 1 Encounter Details Date Type Department Care Team (Latest Contact Info) Description 09/11/2018 8:03 AM CDT - 09/11/2018 11:59 PM CDT Hospital Encounter [facility] [address] [place] [address] [place] [address] [place] [address] Abnormal mammogram Discharge Disposition: Discharge to home or self care Social History Tobacco Use Types Packs/Day Years Used Date Smoking Tobacco: Never Smokeless Tobacco: Never Alcohol Use Standard Drinks/Week Comments No 0 (1 standard drink = 0.6 oz pur e alcohol) Comments Unknown Sex and Gender Information Value Date Recorded Sex Assigned at Not on file Legal Sex Female 12:21 PM MANAGER COSMETIC Gender Identity Not on file Sexual Orientation [...] unspecified documented in this encounter Care Teams Med Specialist Relationship Specialty Start Date End Date Francisco Long MD PCP - General 02/23/17 05/15/22 documented as of this encounter
--- OUTSIDE RECORDS SUMMARY | 2024-11-16 15:47 | XMS_ITS | Encounter Summary ---
Author Organization [facility] Address [address] [place] [address] Care Team Providers Care [place] Utility Worker Name Role Phone Francisco Long MD Primary Care Provider [phone] Encounter Details Date Type Department Care Team (Late st Contact Info) Description 05/11/2017 8:00 AM CDT Lab [facility] [address] [place] [phone] Social History Tobacco Use Types Packs/Day Years Used Date Smoking Tobacco: Never Alcohol Use Standard Drinks/Week Comments No 0 (1 standard drink = 0.6 oz pur e alcohol) Comments Unknown Sex and Gender Information Value Date Recorded Sex Assigned at Not on file 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
--- OUTSIDE RECORDS SUMMARY | 2024-11-16 15:47 | XMS_ITS | Encounter Summary ---
Author Organization [facility] Healthcare Address [address] [place] [address] Care Team Providers Care Logging Worker Name Role Phone Francisco Long MD Primary Care Provider Encounter Details Date Type Department Care Team (Late st Contact Info) Description 05/11/2017 5:15 PM CDT Lab [address] [address] Unspecified essential hypertension; Need for hepatitis C screening test Social History Tobacco Use Types Packs/Day Years Used Date Smoking Tobacco: Never Alcohol Use Standard Drinks/Week Comments No 0 (1 standard drink = 0.6 oz pur e alcohol) Comments Unknown Sex and Gender Information Value Date Recorded Sex Assigned at Not on file Legal Sex Female 12:21 PM PUBLIC RELATIONS ASSOCIATE Gender Identity Not on file Sexual [...] Final Result Performing Organization Address City/State/ZIP [place] mo Phone Number MEHRAN [address] [place] [address] * eGFR (05/11/2017 5:12 PM CDT) eGFR 63 mL/min/1.7 3 m2 MEHRAN Comment: Interpretive Data Reference Interval Normal ?>/= 90 mL/min/1.73m2 Mildly decreased* ? 60 - 89 mL/min/1.73m2 Mildly to moderately decreased ?45 - 59 mL/min/1.73m2 Moderately to severely decreased ??30 - 44 mL/min/1.73m2 Severely decreased ?15 - 29 mL/min/1.73m2 Kidney Failure ?< 15 ??mL/min/1.73m2 *Relative to young adult level If -Brazilian multiply value by 1.16. Estimated glomerular filtration [...] Final Res ult Performing Organization Address [facility] Co de Phone Number MEHRAN [address] [facility] [address] [address] * Basic metabolic panel (05/11/2017 5:12 PM [...] Final Res ult Performing Organization Address [facility] Co de Phone Number MEHRAN [address] [place] [address] * (ABNORMAL) Lipid panel (05/11/2017 5:12 PM [...] LAB BLOOD ORDERABLES Final Res ult MEHRAN [address] [place] [address] documented in this encounter Visit Diagnoses Diagnosis Unspecified essential hypertension Need for hepatitis C screening test Special screening examination for other specified viral diseases documented in this encounter Care Teams Logging Worker Relationship Specialty Start Date End Date Francisco Long MD PCP - General 02/23/17 05/15/22 documented as of this encounter
--- OUTSIDE RECORDS SUMMARY | 2024-11-16 15:47 | XMS_ITS | Encounter Summary ---
Author Organization [facility] Medical Group Address [address] [place] [address] Care Team Providers Care Cloth Packer Name Role Phone Francisco Long MD Primary Care Provider [phone] Reason for Visit * Reason Comments Follow-up htn Encounter Details Date Type Department Care Team (Late st Contact Info) Description 05/25/2017 9:00 AM CDT Office Visit [facility] [address] [place] [address] Francisco Long MD [address] [place] [address] [address] [place], [place] [id number] Essential hypertension (Primary Dx); Rheumatoid arteritis; Medicare annual wellness visit, subsequent; Iron deficiency Social History Tobacco Use Types Packs/Day Years Used Date Smoking Tobacco: Never Alcohol Use Standard Drinks/Week Comments No 0 (1 standard drink = 0.6 oz pur e alcohol) Comments Unknown Sex and Gender Information Value Date Recorded Sex Assigned at Not on file 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
--- OUTSIDE RECORDS SUMMARY | 2024-11-16 15:47 | XMS_ITS | Encounter Summary ---
Author Organization [facility] Healthcare Address [address] [place] [address] Care Team Providers Care Hay Chopper Name Role Phone Francisco Long MD Primary Care Provider [phone] Reason for Referral * Diagnostic Imaging (Routine) - Closed Specialty Diagnoses / Procedures Referred By Halima garcia Referred To Contact Diagnoses Acute right-sided thoracic back pain Procedures US Kidney Complete Larry Wetzel PA Phone: tel: fax: [address] [phone] Referral ID Status Reason Start Date Expiration Date Visits Re quested Visits Authorized [id number] Closed 03/04/2018 08/31/2018 1 1 Reason for Visit * Diagnostic Imaging (Routine) - Closed Specialty Diagnoses / Procedures Referred By Halima garcia Referred To Contact Diagnoses Acute right-sided thoracic back pain Procedures US Kidney Complete Larry Wetzel PA Phone: tel: fax: [address] [address] Referral ID Status Reason Start Date Expiration Date Visits Re quested Visits Authorized [id number] Closed 03/04/2018 08/31/2018 1 1 Encounter Details Date Type Department Care Team (Latest Contact Info) Description 03/19/2018 12:29 PM CDT - 03/19/2018 11:59 PM CDT Hospital Encounter [facility] [address] [facility] [place] [address] Larry Wetzel PA [address] [place] [address] Acute right-sided thoracic back pain Discharge Disposition: [...] on file Legal Sex Female 12:21 PM EMPLOYMENT INSTRUCTIONAL ASSOCIATE Gender Identity Not on file Sexual [...] is within normal limits. Procedure Note Alfonso Dikcens MD - 03/19/2018 EXAM: US KIDNEY COMPLETE [...] signed by: Alfonso Dickens M.D. [place] [facility] Final Result documented in this encounter Visit Diagnoses Diagnosis Acute right-sided thoracic back pain documented in this encounter Care Teams Hay Chopper Relationship Specialty Start Date End Date Francisco Long MD PCP - General 02/23/17 05/15/22 documented as of this encounter
--- OUTSIDE RECORDS SUMMARY | 2024-11-16 15:47 | XMS_ITS | Encounter Summary ---
Author Organization [facility] Address [address] [place] [address] Phone Care Team Providers Care Spin Table Operator Name Role Phone Francisco Long MD Primary Care Provider [phone] Neil Ag MD PhD Unavailable [facility] Un[facility] Caron Mohan MD Unavailable Marleni Chiu MA Unavailable [phone] Pebbles Felton MD Unavailable [phone] Mounika Cruz RN Unavailable [phone] Yamileth Meade MA Unavailable [phone] Mariangel Quiñonez MD Primary Care Provide r Encounter Details Date Type Department Care Team (Late st Contact Info) Description 2017 Orders Only [facility] Provider, MD Annabelle [address] [place] [address] Social History Tobacco Use Types Packs/Day Years Used Date Smoking Tobacco: Never Smokeless Tobacco: Never Alcohol Use Standard Drinks/Week Comments No 0 (1 standard drink = 0.6 oz pur e alcohol) Comments Unknown Sex and Gender Information Value Date Recorded Sex Assigned at Not on file Legal Sex Female 12:21 PM DRY CHAIN WORKER Gender Identity Not on file Sexual Orientation Not on file documented as of this encounter Plan of Treatment Not on file documented as of this encounter Procedures Procedure Name Priority Date/Time Associated Diagnosis Comments DISCHARGE LABORATORY CUMULATIVE REPORT 2017 12:00 AM DRY CHAIN WORKER documented in this encounter Results * DISCHARGE LABORATORY CUMULATIVE REPORT (2017 12:00 AM DRY CHAIN WORKER) Narrative 2017 12:00 AM DRY CHAIN WORKER Ordered by an unspecified provider. Historical Provider LAB BLOOD ORDERABLES Humaira l Result documented in this encounter Visit Diagnoses Not on filedocumented in this encounter Additional Health Concerns Infection Onset Date Last Indicated Resolved Time COVID: Suspected 12/28/2020 12/28/2020 12/29/2020 7:21 AM DRY CHAIN WORKER Respiratory Infection (TITI), contact + droplet Comment:Automatically added due to negative COVID-19 result. 12/29/2020 12/29/2020 01/12/2021 3:0 6 AM DRY CHAIN WORKER COVID: Suspected 12/07/2021 12/07/2021 12/07/2021 1:26 PM DRY CHAIN WORKER COVID19 12/07/2021 12/07/2021 12/17/2021 3:05 AM DRY CHAIN WORKER COVID: Recovered Comment:Added based on recent COVID infection. 12/17/2021 03/02/2022 04/16/2022 3:05 AM C DT COVID: Suspected 12/08/2022 12/08/2022 12/08/2022 11:08 AM DRY CHAIN WORKER COVID19 12/08/2022 12/08/2022 12/18/2022 3:05 AM DRY CHAIN WORKER COVID: Recovered Comment:Added based on recent COVID infection. 12/18/2022 02/11/2023 03/18/2023 3:06 AM C DT documented as of this encounter Care Teams Spin Table Operator Relationship Specialty Start Date End Date Francisco Long MD PCP - General 02/23/17 05/15/22 Mariangel Quiñonez MD [address] [address] PCP - General Family Medicine 05/16/22 Neil Ag MD PhD [address] [place] [address] Radiation Oncologist Radiation Oncology 12/17/18 [place] [address] [facility] [address] [place], [place] [address] Referring Physician General Surgery 12/17/18 [place] [address] [facility] [address] [place], [place] [id number] Medical Oncologist/Airline Station Agent Medical Oncology 12/17/18 Marleni Chiu MA [address] [place] [address] [address] [place] [address] ACO Care Textile Conversion Manager 12/04/19 12/04/19 Pebbles Felton MD [address] [place] [address] [address] [place] [address] Consulting Physician Gastroenterology 01/07/20 Mounika Cruz RN [address] [place] [address] [address] [place] [address] House Calls Nurse 11/17/20 11/28/20 Yamileth Meade MA [address] [place] [address] [address] [place], [place] [id number] ACO Care Textile Conversion Manager 04/26/21 04/26/21 documented as of this encounter
--- OUTSIDE RECORDS SUMMARY | 2024-11-16 15:47 | XMS_ITS | Encounter Summary ---
Author Organization [facility] Address [address] [place] [address] Phone Care Team Providers Care Paint Prep Technician Name Role Phone Francisco Long MD Primary Care Provider [phone] Neil Ag MD PhD Unavailable [facility] Unavailable Caron Mohan MD Unavailable [phone] Marleni Chiu MA Unavailable [phone] Pebbles Felton MD Unavailable [phone] Mounika Cruz RN Unavailable [phone] Yamileth Meade MA Unavailable [phone] Mariangel Quiñonez MD Primary Care Provide r Encounter Details Date Type Department Care Team (Late st Contact Info) Description 11/13/2017 Orders Only [facility] Provider, MD Annabelle [address] [place] [address] Social History Tobacco Use Types Packs/Day Years Used Date Smoking Tobacco: Never Alcohol Use Standard Drinks/Week Comments No 0 (1 standard drink = 0.6 oz pur e alcohol) Comments Unknown Sex and Gender Information Value Date Recorded Sex Assigned at Not on file Legal Sex Female 12:21 PM DELIVERY TRUCK DRIVER HEAVY Gender Identity Not on file Sexual Orientation Not on file documented as of this encounter Plan of Treatment Not on file documented as of this encounter Procedures Procedure Name Priority Date/Time Associated Diagnosis Comments DISCHARGE LABORATORY CUMULATIVE REPORT 11/13/2017 12:00 AM DELIVERY TRUCK DRIVER HEAVY documented in this encounter Results * DISCHARGE LABORATORY CUMULATIVE REPORT (11/13/2017 12:00 AM DELIVERY TRUCK DRIVER HEAVY) Narrative 11/13/2017 12:00 AM DELIVERY TRUCK DRIVER HEAVY Ordered by an unspecified provider. us Historical Provider LAB BLOOD ORDERABLES Humaira l Result documented in this encounter Visit Diagnoses Not on filedocumented in this encounter Additional Health Concerns Infection Onset Date Last Indicated Resolved Time COVID: Suspected 12/28/2020 12/28/2020 12/29/2020 7:21 AM DELIVERY TRUCK DRIVER HEAVY Respiratory Infection (TITI), contact + droplet Comment:Automatically added due to negative COVID-19 result. 12/29/2020 12/29/2020 01/12/2021 3:0 6 AM DELIVERY TRUCK DRIVER HEAVY COVID: Suspected 12/07/2021 12/07/2021 12/07/2021 1:26 PM DELIVERY TRUCK DRIVER HEAVY COVID19 12/07/2021 12/07/2021 12/17/2021 3:05 AM DELIVERY TRUCK DRIVER HEAVY COVID: Recovered Comment:Added based on recent COVID infection. 12/17/2021 03/02/2022 04/16/2022 3:05 AM C DT COVID: Suspected 12/08/2022 12/08/2022 12/08/2022 11:08 AM DELIVERY TRUCK DRIVER HEAVY COVID19 12/08/2022 12/08/2022 12/18/2022 3:05 AM DELIVERY TRUCK DRIVER HEAVY COVID: Recovered Comment:Added based on recent COVID infection. 12/18/2022 02/11/2023 03/18/2023 3:06 AM C DT documented as of this encounter Care Teams Paint Prep Technician Relationship Specialty Start Date End Date Francisco Long MD PCP - General 02/23/17 05/15/22 Mariangel Quiñonez MD [address] [place] [address] [address] [place] [address] PCP - General Family Medicine 05/16/22 Neil Ag MD PhD 6 [facility] [address] Radiation Oncologist Radiation Oncology 12/17/18 [place] [address] [facility] [address] [place], [place] [id number] Referring Physician General Surgery 12/17/18 [place] [address] [facility] [address] [place], [place] [address] Medical Oncologist/Substance Abuse Counselor Medical Oncology 12/17/18 Marleni Chiu MA [address] [place] [address] [address] [place] [address] ACO Care Com Writer 12/04/19 12/04/19 Pebbles Felton MD [address] [place] [address] [address] [place] [address] Consulting Physician Gastroenterology 01/07/20 Mounika Cruz RN [address] [place] [address] [address] [place] [address] Mortgage Broker 11/17/20 11/28/20 Yamileth Meade MA [address] [place] [address] [address] [place] [address] ACO Care Com Writer 04/26/21 04/26/21 documented as of this encounter
--- OUTSIDE RECORDS SUMMARY | 2024-11-16 15:47 | XMS_ITS | Encounter Summary ---
Author Organization [facility] Healthcare Address [address] [place] [address] Care Team Providers Care Commutator Inspector Name Role Phone Francisco Long MD Primary Care Provider [phone] Encounter Details Date Type Department Care Team (Late st Contact Info) Description 05/11/2017 8:24 AM CDT - 05/11/2017 11:59 PM CDT Hospital Encounter CH OP INTERIM Francisco Long MD [address] [place] [address] Discharge Disposition: Discharge to home or self care Social History Tobacco Use Types Packs/Day Years Used Date Smoking Tobacco: Never Alcohol Use Standard Drinks/Week Comments No 0 (1 standard drink = 0.6 oz pur e alcohol) Comments Unknown Sex and Gender Information Value Date Recorded Sex Assigned at Not on file Legal Sex Female 12:21 PM HANDS ASSEMBLER Gender Identity Not on file Sexual [...] CDT Ordered by an unspecified provider. us [facility] Provider LAB BLOOD ORDERABLES Humaira l Result * DISCHARGE LABORATORY CUMULATIVE REPORT (05/11/2017) us Provider Scanning LAB BLOOD ORDERABLES Final Res ult documented in this encounter Visit Diagnoses Not on filedocumented in this encounter Care Teams Commutator Inspector Relationship Specialty Start Date End Date Francisco Long MD PCP - General 02/23/17 05/15/22 documented as of this encounter
--- OUTSIDE RECORDS SUMMARY | 2024-11-16 15:48 | XMS_ITS | Encounter Summary ---
Author Organization [facility] Healthcare Address [address] [place] [address] Care Team Providers Care Environmental Compliance Officer Name Role Phone Francisco Long MD Primary Care Provider [phone] Encounter Details Date Type Department Care Team (Late st Contact Info) Description 01/29/2014 8:35 AM STAPLER MACHINE - 01/29/2014 11:59 PM STAPLER MACHINE Hospital Encounter [facility] Wendy Spencer MD [address] [place] [address] Other screening mammogram Social History Tobacco Use Types Packs/Day Years Used Date Smoking Tobacco: Never Alcohol Use Standard Drinks/Week Comments No 0 (1 standard drink = 0.6 oz pur e alcohol) Comments Unknown Sex and Gender Information Value Date Recorded Sex Assigned at Not on file Legal Sex Female 12:21 PM STAPLER MACHINE Gender Identity Not on file Sexual [...] DIGITAL MAMMOGRAPHY Routine 01/29/2014 9 :05 AM STAPLER MACHINE documented in this encounter Results * DIGITAL MAMMOGRAPHY (01/29/2014 9:05 AM STAPLER MACHINE) Anatomical Region Laterality Modality Breast Mammography 01/29/2014 9:05 AM STAPLER MACHINE Narrative 01/29/2014 3:29 PM STAPLER MACHINE MB Performed by: ?? Screening Mamm Bi ??Acc#: ??[id number] DATE OF EXAM: ??Jan ??2013 CLINICAL HISTORY: [...] MB Performed by: Screening Mamm Bi Acc#: [id number] DATE OF EXAM: Jan 29 2014 CLINICAL [...] mammogram documented in this encounter Care Teams Environmental Compliance Officer Relationship Specialty Start Date End Date Francisco Long MD PCP - General 09/19/13 02/22/17 documented as of this encounter
--- OUTSIDE RECORDS SUMMARY | 2024-11-16 15:48 | XMS_ITS | Encounter Summary ---
Author Organization [facility] Healthcare Address [address] [place] [address] Care Team Providers Care Electronic Plotting System Operator Name Role Phone Inez Long MD Primary Care Provider [phone] Encounter Details Date Type Department Care Team (Late st Contact Info) Description 01/28/2013 7:36 AM OLIVE PICKER - 01/28/2013 11:59 PM OLIVE PICKER Hospital Encounter [facility] Wendy Spencer MD [address] [place] [address] Other screening mammogram Social History Tobacco Use Types Packs/Day Years Used Date Smoking Tobacco: Never Alcohol Use Standard Drinks/Week Comments No 0 (1 standard drink = 0.6 oz pur e alcohol) Comments Unknown Sex and Gender Information Value Date Recorded Sex Assigned at Not on file Legal Sex Female 12:21 PM OLIVE PICKER Gender Identity Not on file Sexual Orientation [...] DIGITAL MAMMOGRAPHY Routine 01/28/2013 8 :08 AM OLIVE PICKER documented in this encounter Results * DIGITAL MAMMOGRAPHY (01/28/2013 8:08 AM OLIVE PICKER) Anatomical Region Laterality Modality Breast Mammography 01/28/2013 8:08 AM OLIVE PICKER Narrative 01/28/2013 10:59 AM OLIVE PICKER CC: ??INEZ LONG M.D. Screening Mamm Bi ??Acc#: ??[id number] DATE OF EXAM: ??Mar ??2012 CLINICAL HISTORY: [...] INEZ LONG M.D. Screening Mamm Bi Acc#: [id number] DATE OF EXAM: Jan 28 2013 CLINICAL [...] mammogram documented in this encounter Care Teams Electronic Plotting System Operator Relationship Specialty Start Date End Date Inez Long MD PCP - General 03/10/11 09/18/13 documented as of this encounter
--- OUTSIDE RECORDS SUMMARY | 2024-11-16 15:48 | XMS_ITS | Encounter Summary ---
Author Organization [facility] Healthcare Address [address] [place] [address] Care Team Providers Care Refrigerating Machine Operator Name Role Phone Unavailable Primary Care Provider Unavailabl e Encounter Details Date Type Department Care Team (Late st Contact Info) Description 09/22/2009 12:01 AM CDT - 09/22/2009 11:59 PM CDT Hospital Encounter [facility] Bolden, Olivia Siddiqi MD [address] [facility] [address] [place] [address] Other screening mammogram Social History Tobacco Use Types Packs/Day Years Used Date Smoking Tobacco: Never Assessed Comments Unknown Sex and Gender Information Value Date Recorded Sex Assigned at Not on file Legal Sex Female 12:21 PM CLIENT SUPPORT ADMINISTRATOR Gender Identity Not on file Sexual Orientation Not on file documented as of this encounter Plan of Treatment Not on file documented as of this encounter Visit Diagnoses Diagnosis Other screening mammogram documented in this encounter
--- OUTSIDE RECORDS SUMMARY | 2024-11-16 15:48 | XMS_ITS | Encounter Summary ---
Author Organization [facility] Healthcare Address [address] [place] [address] Care Team Providers Care Teachers Aide Name Role Phone Unavailable Primary Care Provider Unavailabl e Encounter Details Date Type Department Care Team (Late st Contact Info) Description 10/05/2009 12:01 AM COIL TESTER - 10/05/2009 11:59 PM COIL TESTER Hospital Encounter [facility] Tomy James MD [address] [place] [address] [facility] [address] [place] [address] Special screening for malignant neoplasms, colon; Diverticulosis of colon; Hemorrhoids Social History Tobacco Use Types Packs/Day Years Used Date Smoking Tobacco: Never Assessed Comments Unknown Sex and Gender Information Value Date Recorded Sex Assigned at Not on file Legal Sex Female 12:21 PM COIL TESTER Gender Identity Not on file Sexual [...]
--- OUTSIDE RECORDS SUMMARY | 2024-11-16 15:48 | XMS_ITS | Encounter Summary ---
Author Organization [facility] Healthcare Address [address] [place] [address] Care Team Providers Care Wallpaper Hanger Name Role Phone Francisco Long MD Primary Care Provider [phone] Encounter Details Date Type Department Care Team (Late st Contact Info) Description 02/23/2016 2:55 PM CDT - 02/23/2016 11:59 PM CDT Hospital Encounter [facility] Francisco Long MD [address] [place] [address] Anemia Social History Tobacco Use Types Packs/Day Years Used Date Smoking Tobacco: Never Alcohol Use Standard Drinks/Week Comments No 0 (1 standard drink = 0.6 oz pur e alcohol) Comments Unknown Sex and Gender Information Value Date Recorded Sex Assigned at Not on file Legal Sex Female 12:21 PM ELECTRICAL ENGINEER MEP Gender Identity Not on file Sexual Orientation [...] anemia documented in this encounter Care Teams Wallpaper Hanger Relationship Specialty Start Date End Date Francisco Long MD PCP - General 09/19/13 02/22/17 documented as of this encounter
--- OUTSIDE RECORDS SUMMARY | 2024-11-16 15:48 | XMS_ITS | Encounter Summary ---
Author Organization [facility] Healthcare Address [address] [place] [address] Care Team Providers Care Director Of Healthcare Systems Name Role Phone Francisco Long MD Primary Care Provider [phone] Encounter Details Date Type Department Care Team (Late st Contact Info) Description 04/13/2015 9:25 AM CDT - 04/13/2015 11:59 PM CDT Hospital Encounter [facility] Francisco Long MD [address] [place] [address] Type 2 or unspecified type diabetes mellitus, uncontrolled; Anemia Social History Tobacco Use Types Packs/Day Years Used Date Smoking Tobacco: Never Alcohol Use Standard Drinks/Week Comments No 0 (1 standard drink = 0.6 oz pur e alcohol) Comments Unknown Sex and Gender Information Value Date Recorded Sex Assigned at Not on file Legal Sex Female 12:21 PM BLEACH SUPERVISOR Gender Identity Not on file Sexual [...] anemia documented in this encounter Care Teams Director Of Healthcare Systems Relationship Specialty Start Date End Date Francisco Long MD PCP - General 09/19/13 02/22/17 documented as of this encounter
--- OUTSIDE RECORDS SUMMARY | 2024-11-16 15:48 | XMS_ITS | Encounter Summary ---
Author Organization [facility] Healthcare Address [address] [place] [address] Care Team Providers Care Waiter/Waitress Cocktail Lounge Name Role Phone Francisco Long MD Primary Care Provider [phone] Encounter Details Date Type Department Care Team (Late st Contact Info) Description 05/26/2016 12:02 PM CDT - 05/26/2016 11:59 PM CDT Hospital Encounter [facility] Francisco Long MD [address] [place] [address] Anemia Social History Tobacco Use Types Packs/Day Years Used Date Smoking Tobacco: Never Alcohol Use Standard Drinks/Week Comments No 0 (1 standard drink = 0.6 oz pur e alcohol) Comments Unknown Sex and Gender Information Value Date Recorded Sex Assigned at Not on file Legal Sex Female 12:21 PM DIVISIONAL MERCHANDISING MANAGER Gender Identity Not on file Sexual [...] anemia documented in this encounter Care Teams Waiter/Waitress Cocktail Lounge Relationship Specialty Start Date End Date Francisco Long MD PCP - General 09/19/13 02/22/17 documented as of this encounter
--- OUTSIDE RECORDS SUMMARY | 2024-11-16 15:48 | XMS_ITS | Encounter Summary ---
Author Organization [facility] Healthcare Address [address] [place] [address] Care Team Providers Care Cabinet Builder Name Role Phone Francisco Long MD Primary Care Provider [phone] Encounter Details Date Type Department Care Team (Late st Contact Info) Description 11/29/2011 8:45 AM TOUR NARRATOR - 11/29/2011 11:59 PM TOUR NARRATOR Hospital Encounter [facility] Francisco Long MD [address] [place] [address] [address] Other screening mammogram Social History Tobacco Use Types Packs/Day Years Used Date Smoking Tobacco: Never Assessed Comments Unknown Sex and Gender Information Value Date Recorded Sex Assigned at Not on file Legal Sex Female 12:21 PM TOUR NARRATOR Gender Identity Not on file Sexual Orientation Not on file documented as of this encounter Plan of Treatment Not on file documented as of this encounter Visit Diagnoses Diagnosis Other screening mammogram documented in this encounter Care Teams Cabinet Builder Relationship Specialty Start Date End Date Francisco Long MD PCP - General 03/10/11 09/18/13 documented as of this encounter
--- OUTSIDE RECORDS SUMMARY | 2024-11-16 15:48 | XMS_ITS | Encounter Summary ---
Author Organization [facility] Healthcare Address [address] [place] [address] Care Team Providers Care Manager Med Surg Name Role Phone Unavailable Primary Care Provider Unavailabl e Encounter Details Date Type Department Care Team (Late st Contact Info) Description 11/08/2010 12:01 AM MICROBIOLOGY TECHNICIAN - 11/08/2010 11:59 PM MICROBIOLOGY TECHNICIAN Hospital Encounter [facility] Olivia Spencer MD [address] [facility] [address], [place] [address] Lump or mass in breast; Solitary cyst of breast Social History Tobacco Use Types Packs/Day Years Used Date Smoking Tobacco: Never Assessed Comments Unknown Sex and Gender Information Value Date Recorded Sex Assigned at Not on file Legal Sex Female 12:21 PM MICROBIOLOGY TECHNICIAN Gender Identity Not on file Sexual Orientation Not on file documented as of this encounter Plan of Treatment Not on file documented as of this encounter Visit Diagnoses Diagnosis Lump or mass in breast Solitary cyst of breast documented in this encounter
--- OUTSIDE RECORDS SUMMARY | 2024-11-16 15:48 | XMS_ITS | Encounter Summary ---
Author Organization [facility] Healthcare Address [address] [place] [address] Care Team Providers Care Hospitalist Physician Name Role Phone Francisco Long MD Primary Care Provider [phone] Encounter Details Date Type Department Care Team (Late st Contact Info) Description 08/10/2014 7:49 AM CDT - 08/10/2014 11:59 PM CDT Hospital Encounter [facility] Francisco Long MD [address] [place] [address] Type 2 or unspecified type diabetes mellitus, uncontrolled; Vitamin D deficiency; Mixed hyperlipidemia Social History Tobacco Use Types Packs/Day Years Used Date Smoking Tobacco: Never Alcohol Use Standard Drinks/Week Comments No 0 (1 standard drink = 0.6 oz pur e alcohol) Comments Unknown Sex and Gender Information Value Date Recorded Sex Assigned at Not on file Legal Sex Female 12:21 PM BILINGUAL INTERPRETER Gender Identity Not on file Sexual Orientation [...] hyperlipidemia documented in this encounter Care Teams Hospitalist Physician Relationship Specialty Start Date End Date Francisco Long MD PCP - General 09/19/13 02/22/17 documented as of this encounter
--- OUTSIDE RECORDS SUMMARY | 2024-11-16 15:48 | XMS_ITS | Encounter Summary ---
Author Organization [facility] Care Team Providers Care Older Worker Specialist Name Role Phone Francisco Long MD Primary Care Provider [phone] Encounter Details Date Type Department Care Team (Late st Contact Info) Description 10/20/2014 - 11/25/2014 11:59 PM FRIT MAKER Hospital Encounter [facility] CLINCONV Social History Tobacco Use Types Packs/Day Years Used Date Smoking Tobacco: Never Alcohol Use Standard Drinks/Week Comments No 0 (1 standard drink = 0.6 oz pur e alcohol) Comments Unknown Sex and Gender Information Value Date Recorded Sex Assigned at Not on file Legal Sex Female 12:21 PM FRIT MAKER Gender Identity Not on file Sexual [...] LABORATORY CUMULATIVE REPORT Routine 10/21/2014 5:18 PM FRIT MAKER SERUM ALDOLASE Routine 10/20/2014 4:23 AM FRIT MAKER documented in this encounter Results * Discharge Laboratory Cumulative Report (10/21/2014 5:18 PM FRIT MAKER) 10/21/2014 5:18 PM FRIT MAKER Narrative HISTORICAL RESULTS - 10/21/2014 5:18 PM FRIT MAKER ? [facility] ? Department of Laboratories ? [facility] ? [place] [facility] [facility] [address] ?Network ? Reference ?Laboratory ? [address] ?Attn Main Laboratory ?[place] [address] Patient Name: ? SHAUNA GORDON Med Rec Number: ?? [id number] Date of : ?1945 Gender/Age: ? Female 68 years Doctor: ? HMED Doctor Unknown Report Date/Time: 10/21/2014 17:18 ?* Abnormal ??C Critical ??f Footnote ??^ Corrected ??L Low ??H High ?i Interp Data ??@ Reference Lab ?Chart Type: Cumulative ? CHEMISTRY ? Standard Blood Chemistry ?10/20/2014 ?10:23:00 Test ?Units ?Reference Aldolase ??4.4 ? Units/L ??0.0-8.0 10/20/2014 10:23:00 ??Aldolase: [id number] ??Testing performed by: [place] [address] Historical Provider MD LAB BLOOD ORDERABLES Humaira l Result Performing Organization Address City/[facility] Co de Phone Number HISTORICAL RESULTS * Serum aldolase (10/20/2014 4:23 AM FRIT MAKER) Aldolase 4.4 0.0 - 8.0 Units/L HISTORICAL RESULTS Serum 10/20/2014 4:23 AM FRIT MAKER Narrative HISTORICAL RESULTS - 10/21/2014 3:46 AM FRIT MAKER [id number] ??Testing performed by: [place] [address] Historical Provider MD LAB BLOOD ORDERABLES Humaira l Result Performing Organization Address [facility] Co de Phone Number HISTORICAL RESULTS documented in this encounter Visit Diagnoses Not on filedocumented in this encounter Care Teams Older Worker Specialist Relationship Specialty Start Date End Date Francisco Long MD PCP - General 09/19/13 02/22/17 documented as of this encounter
--- OUTSIDE RECORDS SUMMARY | 2024-11-16 15:48 | XMS_ITS | Encounter Summary ---
Author Organization [facility] Healthcare Address [address] [place] [address] Care Team Providers Care Parts Chaser Name Role Phone Francisco Long MD Primary Care Provider [phone] Encounter Details Date Type Department Care Team (Late st Contact Info) Description 10/20/2014 10:41 AM CIVIL ENGINEERING DIRECTOR - 10/20/2014 11:59 PM CIVIL ENGINEERING DIRECTOR Hospital Encounter [facility] CLINCONV Francisco Long MD [address] [place] [address] [address] Type 2 or unspecified type diabetes mellitus, [...] file Legal Sex Female 12:21 PM CIVIL ENGINEERING DIRECTOR Gender Identity Not on file Sexual [...] limb documented in this encounter Care Teams Parts Chaser Relationship Specialty Start Date End Date Francisco Long MD PCP - General 09/19/13 02/22/17 documented as of this encounter
--- OUTSIDE RECORDS SUMMARY | 2024-11-16 15:48 | XMS_ITS | Encounter Summary ---
Author Organization [facility] Healthcare Address [address] [place] [address] Care Team Providers Care Couture Alterations Dressmaker Name Role Phone Unavailable Primary Care Provider Unavailabl e Encounter Details Date Type Department Care Team (Late st Contact Info) Description 10/19/2010 12:01 AM MANAGER TECHNICAL SALES - 10/19/2010 11:59 PM MANAGER TECHNICAL SALES Hospital Encounter [facility] Olivia Spencer MD [address] [facility] [address], [place] [address] Other screening mammogram Social History Tobacco Use Types Packs/Day Years Used Date Smoking Tobacco: Never Assessed Comments Unknown Sex and Gender Information Value Date Recorded Sex Assigned at Not on file Legal Sex Female 12:21 PM MANAGER TECHNICAL SALES Gender Identity Not on file Sexual Orientation Not on file documented as of this encounter Plan of Treatment Not on file documented as of this encounter Visit Diagnoses Diagnosis Other screening mammogram documented in this encounter
--- OUTSIDE RECORDS SUMMARY | 2024-11-16 15:48 | XMS_ITS | Encounter Summary ---
Author Organization [facility] Healthcare Address [address] [place] [address] Care Team Providers Care Machinist Helper Marine Name Role Phone Francisco Long MD Primary Care Provider [phone] Encounter Details Date Type Department Care Team (Late st Contact Info) Description 09/18/2012 2:09 PM CDT - 09/18/2012 11:59 PM CDT Hospital Encounter [facility] CLINCONV Francisco Long MD [address] [place] [address] Larry Wetzel PA [address] [place] [address] Lump or mass in breast Social History Tobacco Use Types Packs/Day Years Used Date Smoking Tobacco: Never Alcohol Use Standard Drinks/Week Comments No 0 (1 standard drink = 0.6 oz pur e alcohol) Comments Unknown Sex and Gender Information Value Date Recorded Sex Assigned at Not on file Legal Sex Female 12:21 PM VP ANCILLARY Gender Identity Not on file Sexual Orientation Not on file documented as of this encounter Plan of Treatment Not on file documented as of this encounter Visit Diagnoses Diagnosis Lump or mass in breast documented in this encounter Care Teams Machinist Helper Marine Relationship Specialty Start Date End Date Francisco Long MD PCP - General 03/10/11 09/18/13 documented as of this encounter
--- OUTSIDE RECORDS SUMMARY | 2024-11-16 15:48 | XMS_ITS | Encounter Summary ---
Author Organization [facility] Healthcare Address [address] [place] [address] Care Team Providers Care Gallery Director Name Role Phone Francisco Long MD Primary Care Provider [phone] Encounter Details Date Type Department Care Team (Late st Contact Info) Description 03/25/2015 10:29 AM CDT - 03/25/2015 11:59 PM CDT Hospital Encounter [facility] Wendy Spencer MD [address] [place] [address] Other screening mammogram; Solitary cyst of breast Social History Tobacco Use Types Packs/Day Years Used Date Smoking Tobacco: Never Alcohol Use Standard Drinks/Week Comments No 0 (1 standard drink = 0.6 oz pur e alcohol) Comments Unknown Sex and Gender Information Value Date Recorded Sex Assigned at Not on file Legal Sex Female 12:21 PM 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 Requesting ID: ??[id number] Report To 1 ID: ??[id number] Report To 1 Name: ??WENDY SEVERINO Report To 1 FAX: ??-- NextGen Order #: Procedure Note Provider, MD Annabelle - 03/20/2017 Mr Screening Mamm Bi Acc#: [id number] DATE OF EXAM: Mar 25 2015 Performed [...] interpretation of these images. This facility utilizes The [employer] system to notify patients of yearly mammograms. [...] Attending Fax: -- Attending ID: Requesting ID: [id number] Report To 1 ID: [id number] Report To 1 Name: WENDY SEVERINO Report To 1 FAX: -- NextGen Order #: Historical Provider MD MCNAIR MAMMO PROCEDURES Humaira l Result documented in this encounter Visit Diagnoses Diagnosis Other screening mammogram Solitary cyst of breast documented in this encounter Care Teams Gallery Director Relationship Specialty Start Date End Date Francisco Long MD PCP - General 09/19/13 02/22/17 documented as of this encounter
--- OUTSIDE RECORDS SUMMARY | 2024-11-16 15:48 | XMS_ITS | Encounter Summary ---
Author Organization [facility] Healthcare Address [address] [place] [address] Care Team Providers Care Compounding Technician Name Role Phone Francisco Long MD Primary Care Provider [phone] Encounter Details Date Type Department Care Team (Late st Contact Info) Description 12/14/2014 9:35 AM FOREST PATHOLOGY PROFESSOR - 12/14/2014 11:59 PM FOREST PATHOLOGY PROFESSOR Hospital Encounter [facility] CLINCONV Francisco Long MD [address] [place] [address] [address] Type 2 or unspecified type diabetes mellitus, uncontrolled; Iron deficiency anemia; Essential hypertension Social History Tobacco Use Types Packs/Day Years Used Date Smoking Tobacco: Never Alcohol Use Standard Drinks/Week Comments No 0 (1 standard drink = 0.6 oz pur e alcohol) Comments Unknown Sex and Gender Information Value Date Recorded Sex Assigned at Not on file Legal Sex Female 12:21 PM FOREST PATHOLOGY PROFESSOR Gender Identity Not on file Sexual [...] hypertension documented in this encounter Care Teams Compounding Technician Relationship Specialty Start Date End Date Francisco Long MD PCP - General 09/19/13 02/22/17 documented as of this encounter
--- OUTSIDE RECORDS SUMMARY | 2024-11-16 15:48 | XMS_ITS | Encounter Summary ---
Author Organization [facility] Healthcare Address [address] [place] [address] Care Team Providers Care Junior Database Administrator Name Role Phone Inez Long MD Primary Care Provider [phone] Encounter Details Date Type Department Care Team (Late st Contact Info) Description 07/17/2014 3:35 PM CDT - 07/17/2014 11:59 PM CDT Hospital Encounter [facility] Inez Hauser MD [address] [place] [address] Pain in joint, lower leg; Osteoarthrosis involving [...] on file Legal Sex Female 12:21 PM INTERPRETIVE PROGRAM COORDINATOR Gender Identity Not on file Sexual [...] AM CDT MRI KNEE - RIGHT Acc#: ??[id number] DATE OF EXAM: ??Jul 17 2014 CLINICAL [...] - 03/20/2017 MRI KNEE - RIGHT Acc#: [id number] DATE OF EXAM: Jul 17 2014 CLINICAL [...] AM CDT MRI KNEE - LEFT Acc#: ??[id number] DATE OF EXAM: ??Jul 17 2014 CLINICAL [...] - 03/20/2017 MRI KNEE - LEFT Acc#: [id number] DATE OF EXAM: Jul 17 2014 CLINICAL [...] meniscus documented in this encounter Care Teams Junior Database Administrator Relationship Specialty Start Date End Date Inez Long MD PCP - General 09/19/13 02/22/17 documented as of this encounter
--- OUTSIDE RECORDS SUMMARY | 2024-11-16 15:48 | XMS_ITS | Encounter Summary ---
Author Organization [facility] Healthcare Address [address] [place] [address] Care Team Providers Care Photography Manager Name Role Phone Inez Long MD Primary Care Provider [phone] Encounter Details Date Type Department Care Team (Late st Contact Info) Description 03/28/2016 10:27 AM CDT - 03/28/2016 11:59 PM T Hospital Encounter [facility] Inez Hauser MD [address] [place] [address] Encounter for screening mammogram for malignant neoplasm [...] on file Legal Sex Female 12:21 PM ROUTER OPERATOR PIN Gender Identity Not on file Sexual Orientation [...] 9:42 PM CDT Vm Mammogram Performed by: TX SCREENING MAMM W CATHY BI ??Acc#: ??[id number] Screening Mamm Bi ??Acc#: ??[id number] DATE OF EXAM: ??May ??2015 CLINICAL HISTORY: [...] LONG Requesting: ??DR INEZ LONG Requesting Fax: ??[phone] Attending Fax: ??[phone] Attending ID: ??[id number] Requesting ID: ??[id number] Report To 1 ID: ??[id number] Report To 1 Name: ??DR INEZ LONG Report To 1 FAX: ??[phone] NextGen Order #: Procedure Note Provider, MD Annabelle - 03/20/2017 Vm Mammogram Performed by: LAURIE SCREENING MAMM W CATHY BI Acc#: [id number] Screening Mamm Bi Acc#: [id number] DATE OF EXAM: Mar 28 2016 CLINICAL [...] DR INEZ LONG Requesting Attending Attending ID: [id number] Requesting ID: [id number] Report To 1 ID: [id number] Report To 1 Name: DR INEZ LONG Report To 1 FAX: [phone] NextGen Order #: us Historical Provider MD MCNAIR MAMMO PROCEDURES Humaira l Result documented in this encounter Visit Diagnoses Diagnosis Encounter for screening mammogram for malignant neoplasm of breast Other abnormal and inconclusive findings on diagnostic imaging of breast Mammographic calcification found on diagnostic imaging of breast documented in this encounter Care Teams Photography Manager Relationship Specialty Start Date End Date Inez Long MD PCP - General 09/19/13 02/22/17 documented as of this encounter
--- OUTSIDE RECORDS SUMMARY | 2024-11-16 15:48 | XMS_ITS | Encounter Summary ---
Author Organization [facility] Healthcare Address [address] [place] [address] Care Team Providers Care Construction Accountant Name Role Phone Francisco Long MD Primary Care Provider [phone] Encounter Details Date Type Department Care Team (Late st Contact Info) Description 01/26/2016 1:09 PM GRISTMILL OPERATOR - 01/26/2016 11:59 PM GRISTMILL OPERATOR Hospital Encounter [facility] CLINCONV Francisco Long MD [address] [place] [address] [address] Other fatigue; Iron deficiency anemia Social History Tobacco Use Types Packs/Day Years Used Date Smoking Tobacco: Never Alcohol Use Standard Drinks/Week Comments No 0 (1 standard drink = 0.6 oz pur e alcohol) Comments Unknown Sex and Gender Information Value Date Recorded Sex Assigned at Not on file Legal Sex Female 12:21 PM GRISTMILL OPERATOR Gender Identity Not on file Sexual [...] anemia documented in this encounter Care Teams Construction Accountant Relationship Specialty Start Date End Date Francisco Long MD PCP - General 09/19/13 02/22/17 documented as of this encounter
--- OUTSIDE RECORDS SUMMARY | 2024-11-16 15:49 | XMS_ITS | Encounter Summary ---
Author Organization [facility] Healthcare Address [address] [place] [address] Care Team Providers Care Mining Professionals Name Role Phone Unavailable Primary Care Provider Unavailabl e Encounter Details Date Type Department Care Team (Late st Contact Info) Description 12/24/2008 11:55 AM PARKING 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 - 12/24/2008 1:10 PM PARKING 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 Hospital Encounter [facility] Tal Razo MD [address] [place] [address] Francisco Long MD [address] [place] [address] Epistaxis; Essential hypertension Social History Tobacco Use Types Packs/Day Years Used Date Smoking Tobacco: Never Assessed Comments Unknown Sex and Gender Information Value Date Recorded Sex Assigned at Not on file Legal Sex Female 12:21 PM PARKING 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 Gender Identity Not on file Sexual Orientation Not on file documented as of this encounter Plan of Treatment Not on file documented as of this encounter Visit Diagnoses Diagnosis Epistaxis Essential hypertension Unspecified essential hypertension documented in this encounter
--- OUTSIDE RECORDS SUMMARY | 2024-11-16 15:49 | XMS_ITS | Encounter Summary ---
Author Organization [facility] Healthcare Address [address] [place] [address] Care Team Providers Care Senior Web Architect Name Role Phone Unavailable Primary Care Provider Unavailabl e Encounter Details Date Type Department Care Team (Late st Contact Info) Description 04/29/2007 9:03 AM CDT - 04/29/2007 11:59 PM CDT Hospital Encounter [facility] Tiff Harper MD [address] [place] [address] [address], [place] [address] Social History Tobacco Use Types Packs/Day Years Used Date Smoking Tobacco: Never Assessed Comments Unknown Sex and Gender Information Value Date Recorded Sex Assigned at Not on file Legal Sex Female 12:21 PM BACK ORDER CLERK Gender Identity Not on file Sexual Orientation Not on file documented as of this encounter Plan of Treatment Not on file documented as of this encounter Visit Diagnoses Not on filedocumented in this encounter
--- OUTSIDE RECORDS SUMMARY | 2024-11-16 15:49 | XMS_ITS | Encounter Summary ---
Author Organization [facility] Healthcare Address [address] [place] [address] Care Team Providers Care Rod Placer Name Role Phone Unavailable Primary Care Provider Unavailabl e Encounter Details Date Type Department Care Team (Late st Contact Info) Description 06/22/2008 12:01 AM CDT - 06/22/2008 11:59 PM CDT Hospital Encounter [facility] Tiff Harper MD [address] [place] [address] [address], [place] [address] Social History Tobacco Use Types Packs/Day Years Used Date Smoking Tobacco: Never Assessed Comments Unknown Sex and Gender Information Value Date Recorded Sex Assigned at Not on file Legal Sex Female 12:21 PM AXLE TURNER Gender Identity Not on file Sexual Orientation Not on file documented as of this encounter Plan of Treatment Not on file documented as of this encounter Visit Diagnoses Not on filedocumented in this encounter
== END 2024-11-10 09:21 | disposition home or self-care (01) ==
PROVIDERS: Emergency Provider Nurse Practitioner Family; PCP Family Medicine
DX: J22 Unspecified acute lower respiratory infection (principal); I10 Essential (primary) hypertension; M06.9 Rheumatoid arthritis, unspecified; Z85.3 Personal history of malignant neoplasm of breast; Z96.653 Presence of artificial knee joint, bilateral
CPT/HCPCS: 99213; G0463

== ENCOUNTER 2024-11-25 12:27 | Emergency (ER) | payer MEDICARE, SELFPAY ==
[2024-11-25 13:05] VITALS: BP 154/77; PULSE 90; RESP 20; TEMP 36.9; O2SAT 98
--- NOTE | 2024-11-25 14:50 | ED.GENADULT ---
HPI - General Adult General Chief complaint: Upper Respiratory Infection Stated complaint: Cough Source: patient Mode of arrival: ambulatory Limitations: no limitations History of Present Illness HPI narrative: Patient presents for evaluation of a cough. She was seen here on 10/30 or respiratory symptoms. She had a chest x-ray that was normal. She was given a Medrol Dosepak. She did not have improvement in her symptoms thereafter. She returned on 11/10 was given a prescription for azithromycin. She took the medication. She had improvement in her symptoms per recurrence thereafter. Cough is nonproductive. She denies any fever, chills, nausea, vomiting, diarrhea, shortness of breath. She has been using cough drops but no other OTC medications for her symptoms. Related Data Home Medications ?Medication ?Instructions ?Recorded ?Confirmed ?Last Taken ?Type methotrexate sodium 2.5 mg tablet 15 mg PO WEEKLY 10/30/24 11/10/24 Unknown History Allergies Allergy/AdvReac Type Severity Reaction Status Date / Time codeine Allergy Unknown Unknown Verified 11/25/24 13:19 Review of Systems Review of Systems: CONSTITUTIONAL: Denies fever, chills, or sweats. EYES: Denies visual changes, redness, or discharge. ENT: Denies rhinorrhea, congestion, sore throat, or otalgia. CARDIOVASCULAR: Denies chest pain, palpitations, or edema. RESPIRATORY: Reports cough. Denies shortness of breath. GASTROINTESTINAL: Denies abdominal pain, nausea, vomiting, or diarrhea. GENITOURINARY: Denies dysuria or hematuria. SKIN: Denies rash or itching. MUSCULOSKELETAL: Denies back pain, joint pain, or myalgia. NEUROLOGIC: Denies headache, numbness, dizziness, or weakness. PSYCHIATRIC: Denies anxiety or depression. [facility] Past Medical History Medical History Rheumatoid arthritis Hypertension Breast cancer, left Bronchitis Surgical History Surgical History History of knee replacement, total bilateral H/O: hysterectomy Family History Family History Mother Family history non-contributory Social History Social History Smoking status: Never smoker Alcohol intake: current Alcohol use details: rare social Substance use: never Living arrangements: with family Gender identity (if verbalized by the patient): Female Exam Narrative: GENERAL: Well-appearing, well-nourished, and in no acute distress. HEAD: Normocephalic, atraumatic. EYES: PERRLA and EOMI. ENT: Nares clear, no rhinorrhea or epistaxis. Mucous membranes moist. Oropharynx without tonsillar hypertrophy exudate or other lesions. Bilateral TMs pearly greco nonbulging NECK: Supple. No adenopathy or masses. No carotid bruits or JVD CHEST: Cough present on exam. Clear to auscultation. No respiratory distress. No wheezes rales or rhonchi HEART: Regular rate and rhythm. No murmur heard. Normal peripheral pulses. ABDOMEN: Soft, nontender, nondistended, normal active bowel sounds. EXTREMITIES: Normal range of motion. No edema. SKIN: Warm, dry, no rash. NEURO: No focal deficits. Alert and oriented x3. PSYCH: Normal mood and affect. Course Course Emergency Course: This is a 78-year-old female who presented for evaluation of a cough which did not respond to methylprednisolone but did to azithromycin with recurrence thereafter. I did recommend chest x-ray today. She declined. Will to mainly agreed to treat her empirically for pneumonia as she was only given monotherapy at her last visit. She is on methotrexate which could place her at risk for pneumonia. Will dc with augmentin and doxycycline. She should follow-up with her primary care provider go to the ER for worsening symptoms. Patient in agreement with plan of care. Level of Care: Express Care Visit Vital Signs Vital signs: Vital Signs Temperature 36.9 C 11/25/24 13:05 Pulse Rate 90 11/25/24 13:05 Respiratory Rate 20 11/25/24 13:05 Blood Pressure 154/77 H 11/25/24 13:05 Pulse Oximetry 98 11/25/24 13:05 Oxygen Delivery Room Air 11/25/24 13:05 Temperature 36.9 C 11/25/24 13:05 Pulse Rate 90 11/25/24 13:05 Respiratory Rate 20 11/25/24 13:05 Blood Pressure 154/77 H 11/25/24 13:05 Pulse Oximetry 98 11/25/24 13:05 Oxygen Delivery Room Air 11/25/24 13:05 Medical Decision Making Vital Signs Vital Signs: Vital Signs Temperature 36.9 C 11/25/24 13:05 Pulse Rate 90 11/25/24 13:05 Respiratory Rate 20 11/25/24 13:05 Blood Pressure 154/77 H 11/25/24 13:05 Pulse Oximetry 98 11/25/24 13:05 Oxygen Delivery Room Air 11/25/24 13:05 Temperature 36.9 C 11/25/24 13:05 Pulse Rate 90 11/25/24 13:05 Respiratory Rate 20 11/25/24 13:05 Blood Pressure 154/77 H 11/25/24 13:05 Pulse Oximetry 98 11/25/24 13:05 Oxygen Delivery Room Air 11/25/24 13:05 Discharge Plan Discharge Clinical Impression: At risk for pneumonia Patient Disposition: Home, Self-Care Condition: Stable Instructions: Antibiotic Form, Community Acquired Pneumonia (DC) Patient Language: Romansh Prescriptions: New amoxicillin-pot clavulanate 875-125 mg tablet 1 tablet PO Q12H Qty: 20 0RF doxycycline hyclate 100 mg tablet 100 mg PO BID Qty: 20 0RF No Action methotrexate sodium 2.5 mg tablet 15 mg PO WEEKLY Follow-up/Referrals: Olamide,MD Mariangel [Primary Care Provider] - Time of Disposition: 14:46
[2024-11-25 14:54] LABS: EDCOVIDSCREEN Negative (Negative); EDINFLUASCREEN Negative (Negative); EDINFLUBSCREEN Negative (Negative)
== END 2024-11-25 14:50 | disposition home or self-care (01) ==
PROVIDERS: Emergency Provider Nurse Practitioner; PCP Family Medicine
DX: R05.9 Cough, unspecified (principal); Z20.822 Contact with and (suspected) exposure to COVID-19; M06.9 Rheumatoid arthritis, unspecified; I10 Essential (primary) hypertension; Z85.3 Personal history of malignant neoplasm of breast; Z96.653 Presence of artificial knee joint, bilateral
CPT/HCPCS: 87426; 87804; 99213; G0463

== ENCOUNTER 2025-03-02 08:37 | Emergency (ER) | payer MEDICARE, SELFPAY ==
[2025-03-02 08:55] VITALS: BP 146/56; PULSE 86; RESP 16; TEMP 36.8; O2SAT 97
--- OUTSIDE RECORDS SUMMARY | 2025-03-02 08:59 | XMS_ITS | Referral Summary ---
Author Organization [facility] Address [address] [place] [address] Care Team Providers Care Chef German Name Role Phone Neil Ag MD PhD Unavailable Ita Vazquez MD Unavailable Caron Mohan MD Unavailable Pebbles Felton MD Unavailable [phone] Mariangel Quiñonez MD Primary Care Provide r Encounters Date Type Department Care Team Description 12/22/2024 Telephone [facility] Primary Care at [address] [place] [phone] Rayna Guzman MA 12/09/2024 Telephone [facility] Primary Care at [address] [place] [phone] Mariangel Quiñonez MD Medical Question/Miscellaneous from Last 3 Months Allergies Active Allergy [...] daily 90 tablet 1 4 Active iron [id number]-[id number]-Ca -suc-stoma (MULTIGEN) 70 mg-150 mg-10 mcg-2 mg-75 mg tablet 1 tablet daily Activ e Active Problems Problem Noted Date Diagnosed Date BMI 28.0-28.9,adult 06/26/2024 Left hip pain 12/06/2023 Assessment & Plan (12/06/2023 12:23 PM BANKING PARALEGAL): New concern Not at goal Muscle spasm Referral to physical therapy Flexeril 5mg at night Do not operate heavy machinery If no improvement will get xrays and referral to pain management F/u prn Encounter for wellness examination 10/02/2022 Assessment & Plan (12/06/2023 12:02 PM BANKING [facility]ALEGAL): Ordered CBC, cmp, lipid, hgb a1c, TSH, Flu declines Zoster declines pcv20 declines Colonoscopy:up to date Pap smear:followed with ob Mammo:follows with Dr. Mohan F/u in 1 year for annual Assessment & Plan (10/03/2022 10:39 AM BANKING PARALEGAL): Ordered CBC, cmp, lipid, hgb a1c, TSH, Flu given today Colonoscopy:up to date Pap smear:follows with ob Mammo:follows with Dr. Mohan F/u in 1 year for annual Iron deficiency anemia 01/07/2021 Overview (01/07/2021): Added automatically from request for surgery [id number] Assessment & Plan (06/26/2024 1:16 PM CDT): Stable / clinically quiescent. Will continue to monitor. Iron panel ordered for 6 months Assessment & Plan (12/06/2023 12:20 PM BANKING PARALEGAL): Stable / clinically quiescent. Will continue to monitor. Iron panel ordered Acute upper GI bleed 01/03/2021 Overview (01/03/2021): Added automatically from request for surgery [id number] Type 2 diabetes mellitus with hyperlipidemia 03/2021 [...] months Assessment & Plan (12/06/2023 11:44 AM BANKING [facility]ALEGAL): The patient was counseled on a heart-healthy, [...] months Assessment & Plan (10/02/2022 9:57 PM BANKING PARALEGAL): The patient was counseled on a heart-healthy, [...] months Hiatal hernia 11/01/2020 Recurrent pulmonary emboli 07/02/2020 Assessment & Plan (12/06/2023 7:16 AM BANKING PARALEGAL): eliquis was stopped because of hx of GI bleeding Assessment & Plan (10/03/2022 10:17 AM BANKING PARALEGAL): eliquis was stopped because of hx of GI bleeding Chronic GERD 07/02/2020 History of breast cancer 07/02/2020 Assessment & Plan (12/06/2023 7:16 AM BANKING PARALEGAL): Still follows with Dr. Mohan Continue with letrozole Assessment & Plan (10/03/2022 10:19 AM BANKING PARALEGAL): Still follows with Dr. Mohan Continue with letrozole History of uterine cancer 07/02/2020 Assessment & Plan (12/06/2023 7:16 AM BANKING PARALEGAL): She follows with ob Assessment & Plan (10/03/2022 10:19 AM BANKING PARALEGAL): She follows with ob High risk of cardiac event 07/01/2020 Iron deficiency anemia due to chronic blood loss 01/06/2020 Assessment & Plan (01/06/2020 5:46 AM BANKING PARALEGAL): Likely GI source as patient has positive guaiac. Hemoglobin was as high as 11.1 in November. Patient has been seen by GI and 1 unit of PRBCs ordered. Awaiting repeat hemoglobin. Ferrlecit ordered by Dr. Felton already. Continue to monitor. Will hold anticoagulation for now. Chronic diastolic heart failure 12/03/2019 Assessment & Plan (12/06/2023 7:15 AM BANKING PARALEGAL): stable Assessment & Plan (10/02/2022 9:56 PM BANKING PARALEGAL): stable Malignant neoplasm of upper- inner quadrant of left breast in female, estrogen receptor positive 12/17/2018 Cancer Staging:Pathologic stage from 12/17/2018:Stage IA(pT1b, pN1mi(sn), cM0, G2, ER: Positive, WA: Positive, HER2: Negative) - Signed by Neil Ag MD PhD on 12/17/2018 Assessment & Plan (01/06/2020 5:46 AM BANKING PARALEGAL): Hold letrozole for now as it increases risk for thromboembolism. Assessment & Plan (12/02/2019 7:15 PM BANKING PARALEGAL): S/p lumpectomy, home letrozole to be replaced with formulary anastrozole while inpatient per pharmacy. Followed by food cart attendant onc as an outpatient. Mixed hyperlipidemia 11/28/2017 Assessment & Plan (12/06/2023 12:19 PM BANKING PARALEGAL): Stable / clinically quiescent. Will continue to monitor. Unable to tolerate statin medication at any dose Causes muscle aches Lipid panel ordered Assessment & Plan (04/03/2023 10:57 AM CDT): Stable / clinically quiescent. Will continue to monitor. Continue statin Assessment & Plan (10/02/2022 9:55 PM BANKING PARALEGAL): Stable / clinically quiescent. Will continue to monitor. Continue statin Essential hypertension 11/28/2017 Assessment & Plan (06/26/2024 6:59 AM CDT): Bp in the office today BP Readings from Last 1 Encounters: 12/06/23 132/80 Continue current regimen of carvedilol and losartan 100mg daily Recommend DASH diet, heart-healthy lifestyle, exercise. Discussed the risks of hypertension. F/u in 6 months Assessment & Plan (12/06/2023 11:32 AM BANKING PARALEGAL): Bp in the office today BP Readings [...] months Assessment & Plan (10/03/2022 10:15 AM BANKING PARALEGAL): Bp in the office today BP Readings from Last 1 Encounters: 10/03/22 136/78 Continue current regimen of carvedilol and losartan Recommend DASH diet, heart-healthy lifestyle, exercise. Discussed the risks of hypertension. F/u in1 year Assessment & Plan (01/06/2020 5:42 AM BANKING PARALEGAL): Currently normotensive. Continue carvedilol with hold parameters. Holding losartan and hydrochlorothiazide for now. Assessment & Plan (12/02/2019 7:14 PM BANKING PARALEGAL): Continue home antihypertensives. Rheumatoid arthritis involvi ng multiple sites with positive rheumatoid factor 11/28/2017 Assessment & Plan (12/06/2023 7:16 AM BANKING PARALEGAL): Stable Continue with rheumatology Continue with methotrexate Assessment & Plan (10/03/2022 10:21 AM BANKING PARALEGAL): Stable Continue with rheumatology Continue with methotrexate Assessment & Plan (01/06/2020 5:42 AM BANKING PARALEGAL): Patient is on methotrexate which she takes on Sunday. Assessment & Plan (12/02/2019 7:16 PM BANKING PARALEGAL): Continue home methotrexate, administered weekly on Wednesdays. Hiatal hernia Resolved Problems Problem Noted Date Diagnosed Date Resolved Date Gastrointestinal hemorrhage associated with anorectal source 01/05/2020 07/02/2020 Overview (01/06/2020): Added automatically from request for surgery [id number] Bilateral pulmonary embolism 12/02/2019 07/02/2020 Assessment & Plan (12/02/2019 7:13 PM BANKING PARALEGAL): Cause shortness of breath cough, seen on chest CT today. Therapeutic Lovenox started in ED, switched to Eliquis for outpatient therapy. TTE ordered for AM to ensure no right heart strain. Cause unclear at this point, chest CT showed a nodular density in the left breast and recommended follow-up mammogram, however patient had a normal mammogram 3 weeks ago from her food cart attendant onc physician at [facility] (results in Care Everywhere). Encounter for screening colonoscopy 09/29/2019 07/02/2020 Overview (09/29/2019): Added automatically from request for surgery [id number] Malignant neoplasm of uterus 12/17/2018 07/02/2020 Assessment & Plan (12/02/2019 7:15 PM BANKING PARALEGAL): S/p hysterectomy. Viral URI with cough 10/30/2018 019 Assessment & Plan (10/30/2018 11:28 AM BANKING PARALEGAL): Likely viral based on symptoms. Flonase prescribed, conservative management advised including use of a nasal rinses, humidifier or paper eyes are along with indication to f/u in office with any worsening symptoms or persistent symptoms. Pre-diabetes 11/28/2017 11/30/2020 Benign hypertension 04/11/2014 12/17/19 19 Overview (03/01/2017): BENIGN HYPERTENSION Immunizations Immunization Administration Dates Next Due Influenza, Quadrivalent, Hig [...] file Legal Sex Female 12:21 PM [facility]ANK[facility]GAL Gender Identity Not on file Sexual Orientation Not on file Last Filed Vital Signs Vital Sign Reading Time Taken Comments Blood Pressure 152/80 09/04/2024 3:25 PM CDT Pulse 76 09/04/2024 3:25 PM CDT Temperature 37.1 C (98.7 F) 09/04/2024 3:25 PM CDT Respiratory Rate 16 09/04/2024 3:25 PM CDT Oxygen Saturation 99% 09/04/2024 3:25 PM CDT Inhaled Oxygen Concentration - - Weight 83 kg (183 lb) 09/04/2024 3:25 PM CDT Height 170.2 cm (5' 7 ) 09/04/2024 3:25 PM CDT Body Mass Index 28.66 09/04/2024 3:25 PM CDT Plan of Treatment Not on file Procedures Procedure Name Priority Date/Time Associated Diagnosis Comments COPY(IES) SENT TO: Routine 12/23/2024 12:18 PM [facility]GAL ALBUMIN CREATININE RATIO, URINE Routine 12/23/2024 12:18 PM [facility]ING [facility]GAL Routine health maintenance TSH W/REFL FT4 Routine 12/17/2024 8:52 AM [facility]ING [facility]GAL COPY(IES) SENT TO: Routine 12/17/2024 8: 52 AM [facility]GAL IRON PROFILE W/ IBC Routine 12/17/2024 8 :52 AM [facility]ING [facility]GAL Routine health maintenance Iron deficiency anemia secondary to inadequate dietary iron intake HEMOGLOBIN A1C Routine 12/17/2024 8:52 AM [facility]ING [facility]GAL Routine health maintenance 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) LIPID PANEL Routine 12/17/2024 8:52 AM [facility]ANKING PAR[facility]GAL Routine health maintenance COMPREHENSIVE METABOLIC PANEL Routine 12/17/2024 8:52 AM [facility]ING [facility]GAL Routine health maintenance CBC WITH AUTO DIFFERENTIAL Routine 12/17/2024 8:52 AM [facility]ING [facility]GAL Routine health maintenance HEPATITIS B SURFACE ANTIBODY (IMMUNE STATUS) Routine 12/17/2024 8:52 AM BANKING PAR[facility]GAL Need for hepatitis B screening test HEPATITIS B CORE ANTIBODY, TOTAL Routine 12/17/2024 8:52 AM [facility]GAL Need for hepatitis B screening test HEPATITIS B SURFACE ANTIGEN Routine 12/17/2024 8:52 AM [facility]ING PAR[facility]GAL Need for hepatitis B screening test DEXA AXIAL SKELETON BONE DENSITY 1 OR MORE SITES Schedule Routine, Read Routine (OP Routine) 02/19/2024 9:29 AM CDT Menopause HM DIABETES EYE EXAM Routine 08/28/2023 12:56 PM CDT COLONOSCOPY 01/07/2020 9:12 AM [facility]GAL DIAGNOSTIC MAMMOGRAM BILATERAL W MOODY Schedule Routine, Read Routine (OP Routine) 11/12/2019 HEPATITIS C AB REFLEX RNA QUANT PCR Routine 05/11/2017 5:12 PM CDT from Last 3 Months or Most Recently Relevant to Health Maintenance Results * COPY(IES) SENT TO: (12/23/2024 12:18 PM BANKING PARALEGAL) COPY(IES) SENT TO: [facility] Comment: [facility] [address] [place] [address] 12/23/2024 12:1 8 PM BANKING PARALEGAL 12/24/2024 12:21 AM [facility]ING [facility]GAL Narrative [facility] - 2024 3:04 AM BANKING PAR[facility]GAL SPLIT 12/17/2024 FROM [id number] FASTING:NO FASTING: NO us Mariangel Quiñonez MD LAB BLOOD ORDERABLES Final Result [facility] * Albumin Creatinine Ratio, Urine (12/23/2024 12:18 PM BANKING PARALEGAL) Creatinine, ur 124 20 - 275 mg/dL [facility] Microalbumin, ur 0.4 See Note: mg/dL [facility] Comment: Reference Range: Reference Range Not established Microalbumin/creat ratio 3 <30 mg/g creat [facility] Comment: The ADA defines abnormalities in albumin excretion as follows: Albuminuria Category Result (mg/g creatinine) Normal to Mildly increased <30 Moderately increased 30-299 Severely increased > OR = 300 The ADA recommends that at least two of three specimens collected within a 3-6 month period be abnormal before considering a patient to be within a diagnostic category. Urine 12/23/2024 12:1 8 PM [facility]ING PARALEGAL 12/24/2024 12:21 AM [facility]ING [facility]GAL Narrative [facility] - 2024 3:04 AM BANKING PARALEGAL SPLIT 12/17/2024 FROM [id number] FASTING:NO FASTING: NO Mariangel Quiñonez MD LAB URINE ORDERABLES Final Result Performing Organization Address City/[facility]/ZIP Co de Phone Number [facility] [address] [facility] [place] [address] * COPY(IES) SENT TO: (12/17/2024 8:52 AM BANKING PARALEGAL) COPY(IES) SENT TO: [facility] Comment: [facility] [address] [place] [address] 12/17/2024 8:52 AM [facility]ANKING PARALEGAL 12/17/2024 8:57 AM [facility]ANKING PAR[facility]GAL Narrative [facility] - 12/19/2024 1:49 AM BANKING PAR[facility]GAL FASTING:YES PATIENT UNABLE TO VOID; ADVISED TO RETURN FOR COLLECTION. FASTING: YES Mariangel Quiñonez MD LAB BLOOD ORDERABLES Final Result Performing Organization Address [facility] Co de Phone Number [facility] * TSH W/REFL FT4 (12/17/2024 8:52 AM BANKING PARALEGAL) Pathologist [facility] TSH 3.06 0.40 - 4.50 mIU/L [facility] 12/17/2024 8:52 AM BANKING PARALEGAL 12/17/2024 8:57 AM BANKING [facility]GAL Narrative [facility] - 12/19/2024 1:49 AM BANKING [facility]GAL FASTING:YES PATIENT UNABLE TO VOID; ADVISED TO RETURN FOR COLLECTION. FASTING: YES Mariangel Quiñonez MD LAB BLOOD ORDERABLES Final Result Performing Organization Address City/[facility]/ZIP Co de Phone Number [facility] [address] [place] [address] * (ABNORMAL) Iron profile w/ IBC (12/17/2024 8:52 AM BANKING PARALEGAL) Pathologist [facility] Iron 48 45 - 160 mcg/dL [facility] TIBC 383 250 - 450 mcg/dL (calc) [facility] Iron saturation 13(L) 16 - 45 % (calc) [facility] Blood 12/17/2024 8:52 AM BANKING PARALEGAL 12/17/2024 8:57 AM [facility]ING [facility]GAL Narrative [facility] - 12/19/2024 1:49 AM BANKING PAR[employer]GAL FASTING:YES PATIENT UNABLE TO VOID; ADVISED TO RETURN FOR COLLECTION. FASTING: YES Mariangel Quiñonez MD LAB BLOOD ORDERABLES Final Result [facility] [address] [facility] [place] [address] * (ABNORMAL) CBC with auto differential (12/17/2024 8:52 AM BANKING PARALEGAL) WBC 6.3 3.8 - 10.8 Thousand/u L [facility] RBC, POC 5.68(H) 3.80 - 5.10 Million/uL [facility] Hgb 12.2 11.7 - 15.5 g/dL [facility] Hct 43.6 35.0 - 45.0 % [facility] MCV 76.8(L) 80.0 - 100.0 fL [facility] MCH 21.5(L) 27.0 - 33.0 pg [facility] MCHC 28.0(L) 32.0 - 36.0 g/dL [facility] Comment: For adults, a slight decrease in the calculated MCHC value (in the range of 30 to 32 g/dL) is most likely not clinically significant; however, it should be interpreted with caution in correlation with other red cell parameters and the patient's clinical condition. Rdw 19.5(H) 11.0 - 15.0 % [facility] Platelets 232 140 - 400 Thousand/u L [facility] MPV 10.7 7.5 - 12.5 fL [facility] Neutrophils, abs 4,996 1,500 - 7,800 cells/uL [facility] Lymphocytes, abs 649(L) 850 - 3,900 cells/uL [facility] Monocyte abs 378 200 - 950 cells/uL [facility] Eosinophils, abs 258 15 - 500 cells/uL [facility] Basophils, abs 19 0 - 200 cells/uL [facility] Neutrophils 79.3 % [facility] Lymphocyte pct 10.3 % [facility] Monocytes 6.0 % [facility] Eosinophils 4.1 % [facility] Basophils 0.3 % [facility] Blood 12/17/2024 8:52 AM B[facility]ING PAR[facility]GAL 12/17/2024 8:57 AM BANKING PAR[facility]GAL Narrative [facility] - 12/19/2024 1:49 AM B[employer]ING [employer]GAL FASTING:YES PATIENT UNABLE TO VOID; ADVISED TO RETURN FOR COLLECTION. FASTING: YES Mariangel Quiñonez MD LAB BLOOD ORDERABLES Final Result Performing Organization Address [facility] de Phone Number [facility] [address] [place] [address] * Hepatitis B core antibody, total Blood (12/17/2024 8:52 AM BANKING PARALEGAL) Hep B core IgG/IgM NON-REACTI VE NON-REACTI VE [facility] Comment: For additional information, please refer to http://education.[employer]faq/AJD693 (This link is being provided for informational/ educational purposes only.) Blood 12/17/2024 8:52 AM BANKING PARALEGAL 12/17/2024 8:57 AM BANKING PARALEGAL Narrative [facility] - 12/19/2024 1:49 AM BANKING [facility]GAL FASTING:YES PATIENT UNABLE TO VOID; ADVISED TO RETURN FOR COLLECTION. FASTING: YES us Mariangel Quiñonez MD LAB MICROBIOLOGY - NERAL ORDERABLES Final Result Performing Organization Address [facility] Co de Phone Number [employer] [address] [place] [address] * Hepatitis B surface antibody (immune status) Blood (12/17/2024 8:52 AM BANKING PARALEGAL) Pathologist [facility] HBsAb (immune status) NON-REACTI VE NON-REACTI VE [facility] Blood 12/17/2024 8:52 AM B[facility]ING PARALEGAL 12/17/2024 8:57 AM BANKING PAR[facility]GAL Narrative [facility] - 12/19/2024 1:49 AM BANKING PARALEGAL FASTING:YES PATIENT UNABLE TO VOID; ADVISED TO RETURN FOR COLLECTION. FASTING: YES Mariangel Quiñonez MD LAB MICROBIOLOGY - ISIS NERAL ORDERABLES Final Result Performing Organization Address [facility] Co de Phone Number [facility] [address] [place] [address] * Hepatitis B Surface Antigen Blood (12/17/2024 8:52 AM BANKING PARALEGAL) Pathologist [facility] HepBsAg NON-REACTI VE NON-REACTI VE [facility] Comment: For additional information, please refer to http://education.[employer]/faq/RPY257 (This link is being provided for informational/ educational purposes only.) Blood 12/17/2024 8:52 AM [facility]ANKING PARALEGAL 12/17/2024 8:57 AM BANKING PARALEGAL Narrative [facility] - 12/19/2024 1:49 AM BANKING PAR[facility]GAL FASTING:YES PATIENT UNABLE TO VOID; ADVISED TO RETURN FOR COLLECTION. FASTING: YES Mariangel Quiñonez MD LAB MICROBIOLOGY - ISIS NERAL ORDERABLES Final Result Performing Organization Address City/[facility]/ZIP Co de Phone Number [facility] [address] [place] [address] * (ABNORMAL) Hemoglobin A1c (12/17/2024 8:52 AM BANKING PARALEGAL) [facility] Hgb A1C 6.5(H) <5.7 % of total [...] A1c for diagnosis of diabetes for children. Blood 12/17/2024 8:52 AM [facility]ANKING PARALEGAL 12/17/2024 8:57 AM BANKING PAR[facility]GAL Narrative [facility] - 12/19/2024 1:49 AM [facility]ING [facility]GAL FASTING:YES PATIENT UNABLE TO VOID; ADVISED TO RETURN FOR COLLECTION. FASTING: YES us Mariangel Quiñonez MD LAB BLOOD ORDERABLES Final Result [facility] [address] [place] [address] * (ABNORMAL) Lipid panel (12/17/2024 8:52 AM BANKING PARALEGAL) [facility] Cholesterol 250(H) <200 mg/dL [facility] HDL 59 > OR = 50 mg/dL [facility] Triglycerides 122 <150 mg/dL [facility] LDL 166(H) mg/dL (calc) [facility] Comment: Reference range: <100 Desirable range <100 mg/dL for primary prevention; <70 mg/dL for patients with CHD or diabetic patients with > or = 2 CHD risk factors. LDL-C is now calculated using the Harry-Cecilia calculation, which is a validated novel method providing better accuracy than the Friedewald equation in the estimation of LDL-C. Harry YUAN et al. RANDALL. 2013;310(19): 7639-3990 (http://education.[employer]/faq/DBP498) Chol/HDL ratio 4.2 <5.0 (calc) [facility] Non-HDL, (LDL+VLDL) 191(H) <130 mg/dL (calc) [facility] Comment: For patients with diabetes plus 1 major ASCVD risk factor, treating to a non-HDL-C goal of <100 mg/dL (LDL-C of <70 mg/dL) is considered a therapeutic option. Blood 12/17/2024 8:52 AM [facility]ING [facility]GAL 12/17/2024 8:57 AM B[facility]ING PAR[facility]GAL Narrative [facility] - 12/19/2024 1:49 AM [facility]ING [facility]GAL FASTING:YES PATIENT UNABLE TO VOID; ADVISED TO RETURN FOR COLLECTION. FASTING: YES us Mariangel Quiñonez MD LAB BLOOD ORDERABLES Final Result [facility] [address] [place] [address] [phone] * (ABNORMAL) Comprehensive metabolic panel (12/17/2024 8:52 AM BANKING PARALEGAL) Glucose 134(H) 65 - 99 mg/dL [facility] Comment: Fasting reference interval For someone without known diabetes, a glucose value >125 mg/dL indicates that they may have diabetes and this should be confirmed with a follow-up test. BUN 16 7 - 25 mg/dL [facility] Creatinine 0.82 0.60 - 1.00 mg/dL [facility] eGFR 74 > OR = 60 mL/min/1.7 3m2 [facility] BUN/creat ratio SEE NOTE: 6 22 (calc) [facility] Comment: Not Reported: BUN and Creatinine are within reference range. Sodium 140 135 - 146 mmol/L [facility] Potassium, pl 4.8 3.5 - 5.3 mmol/L [facility] Chloride 103 98 - 110 mmol/L [facility] CO2 29 20 - 32 mmol/L [facility] Calcium 9.0 8.6 - 10.4 mg/dL [facility] Protein, sr 6.4 6.1 - 8.1 g/dL [facility] Albumin 4.2 3.6 - 5.1 g/dL [facility] GLOBULIN 2.2 1.9 - 3.7 g/dL (calc) [facility] Alb/glob ratio 1.9 1.0 - 2.5 (calc) [facility] Bilirubin, total 0.4 0.2 - 1.2 mg/dL [facility] Alk phos 62 37 - 153 U/L [facility] AST 20 10 - 35 U/L [facility] ALT (SGPT) 14 6 - 29 U/L [facility] Blood 12/17/2024 8:52 AM B[facility]ING [facility]GAL 12/17/2024 8:57 AM BANKING [facility]GAL Narrative [facility] - 12/19/2024 1:49 AM [facility]GAL FASTING:YES PATIENT UNABLE TO VOID; ADVISED TO RETURN FOR COLLECTION. FASTING: YES us Mariangel Quiñonez MD LAB BLOOD ORDERABLES Final Result [facility] [address] [address] [address] [phone] * Dexa Axial Skeleton Bone Density 1 or 2 Site (02/19/2024 9:29 AM CDT) Anatomical Region Laterality Modality Body N/A Other 02/19/2024 4:29 PM CDT Narrative 02/19/2024 4:29 PM CDT EXAM DESCRIPTION: DEXA AXIAL SKELETON BONE DENSITY 1 OR MORE SITES REASON FOR STUDY: 78 y/o year old F with given history of: MENOPAUSE Osteoporosis screening Post menopausal Personalized Living Assistant/Model: [employer] SL (S/N [id number]) CLINICAL INFORMATION: Current height: 67 inches Maximum [...] mass (T-score between -1.0 and -2.5) replaces the previously used term osteopenia Osteoporosis (T-score = or [...] major osteoporosis related fracture and hip fracture. According to the National Osteoporosis Foundation guidelines, postmenopausal [...] Caesar Navarro M.D. MF: MAXINE Report ID: [id number] Reading Location: [place] [address] Procedure Note Caesar Navarro MD - 02/19/2024 EXAM DESCRIPTION: DEXA AXIAL SKELETON BONE DENSITY 1 OR MORE SITES REASON FOR STUDY: 78 y/o year old F with given history of: MENOPAUSE Osteoporosis screening Post menopausal Personalized Living Assistant/Model: Octap[employer] (S/N [id number]) CLINICAL INFORMATION: Current height: 67 inches Maximum [...] Caesar Navarro M.D. MF: MAXINE Report ID: [id number] Reading Location: [id number] Caron Mohan MD [facility]Xi[facility] DXA PROCEDURES Fi nal Result * DIABETES EYE EXAM (08/28/2023 12:56 PM CDT) SCRIBED DIABETIC DILATED EYE EXAM Normal Historical Provider HEALTH MAINTENANCE Final Result * COLONOSCOPY (01/07/2020 9:12 AM BANKING PARALEGAL) Anatomical Region Laterality Modality Other Narrative Procedure Note Pebbles Felton MD - 01/07/2020 9:12 AM CST [facility] Patient Name: Jolene Gordon Procedure Date: 01/07/2020 9:12 AM Date of : 1945 Admit Type: Inpatient Age: 74 Gender: Female Attending MD: Pebbles Felton M.D. Room: [facility] ENDOSCOPY ROOM 1 Note Status: Finalized [...] passed under direct vision.The Pediatric Colonoscope [id number] was introduced through the anus and advanced [...] 9:12 AM Procedure Code(s): --- Professional --- 49967, Colonoscopy, flexible; with removal of tumor(s), polyp(s), or other lesion(s) by snare technique 55560, 59, Colonoscopy, flexible; with biopsy, single or multiple Diagnosis Code(s): --- Professional --- K64.8, Other hemorrhoids D12.0, Benign neoplasm of cecum D12.4, Benign neoplasm of descending colon R19.5, Other fecal abnormalities D50.9, Iron deficiency anemia, unspecified K57.30, Diverticulosis of large intestine without perforation orabscess without bleeding CPT copyright 2017 [employer]. All rights reserved. The codes documented in this report are preliminary and upon svp research and strategic analysis reviewmay be revised to meet current compliance requirements. Recognized by the [employer] for promoting quality in endoscopy Pebbles Felton MD ENDOSCOPY PROCEDURES Final Result * Diagnostic Mammogram Bilateral W Moody (11/12/2019) Anatomical Region Laterality Modality Breast Bilateral Mammography Narrative 11/12/2019 In care everywhere from [facility] Historical Provider MD MCNAIR MAMMO PROCEDURES Humaira l Result * Hepatitis C Antibody Reflex Hepatitis C RNA Quantitative PCR (05/11/2017 5:12 PM CDT) Hep C Ab Negative Negative MEHRAN DE JESUS Blood specimen (specimen) 05/11/2017 5:12 PM CDT 05/11/2017 5:34 PM CDT Francisco Long MD LAB MICROBIOLOGY - GENERAL ORD ERABLES Final Result MEHRAN [id number] [place] [address] from Last 3 Months or Most Recently Relevant to Health Maintenance Insurance [employer] LIFE [place] MEDICARE [facility] MEDICARE SUPPLEMENT INSURANCE MEDICARE [facility] Address: [address] [address] [place] [address] [facility] COMMERCIAL GENERIC [facility] MEDICARE SUPPLEMENT INSURANCE [facility] Advance Directives For more information, please contact: [phone] * Full Code (Latest Code Status on [...] 5:42 PM 01/07/2020 8:26 AM Care Teams Chef German Relationship Specialty Start Date End Date Mariangel Quiñonez MD 2 [facility] [address] [address] PCP - General Family Medicine 05/16/22 Neil Ag MD PhD [address] [place] [address] Radiation Oncologist Radiation Oncology 12/17/18 [place] [address] [id number] Referring Physician General Surgery 12/17/18 [place] [address] [id number] Medical Oncologist/Operating Room Specialist Medical Oncology 12/17/18 [place] [address] [address] Consulting Physician Gastroenterology 01/07/20
--- OUTSIDE RECORDS SUMMARY | 2025-03-02 08:59 | XMS_ITS | Clinical Summary ---
Author Organization [facility] Address [address] [place] [address] Phone Care Team Providers Care Pastoral Ministries Professor Name Role Phone Francisco Long MD Primary Care Provider Unavailabl e Allergies Active Allergy Reactions Criticality Noted Date Comments Atorvastatin Muscle Pain Medium 03/04/2018 Codeine Nausea and Vomiting Low Reaction: Nausea, Medications methotrexate (RHEUMATREX) 2.5 mg Tablet Take 2.5 mg by mouth every 7 days. 6 tabs on Active calcium carbonate + vitamin D (CALTRATE+D) 600 mg(1,500mg) -400 unit Tablet Take 1 Tablet by mouth daily. 0 9 Active Cholecalciferol , Vitamin D3, (VITAMIN D3) 2,000 unit CapsuleIndicati ons:Vitamin D deficiency Take 1 Capsule by mouth daily. 9 Active losartan (COZAAR) 100 mg tablet TAKE 1 TABLET BY MOUTH EVERY DAY 0 Active OTHER PM Lubricant Eye Ointment Active benzonatate (TESSALON) 100 mg capsule Take 100 mg by mouth 3 times daily. Active letrozole (FEMARA) 2.5 mg tabletIndicatio ns:Malignant neoplasm of upper-inner quadrant of left breast in female, estrogen receptor positive (CMS/HCC),Rich joseph,ER+ (estrogen receptor positive status) Take 1 Tablet (2.5 mg) by mouth daily. 90 Tablet 3 4 Active ferrous gluconate 324 mg (38 mg [...] of diagnosis: 09/23/18 Diagnosis: LEFT IDC ER(+) IA(+) Her 2 (-) Surgeon: Taylor Surgery: 11/22/18 left lump/SLN Medical Oncologist: Kimberlee Chemotherapy: none Radiation Oncologist: Dr. Jonh Ag office at [facility] Radiation: Hormonal therapy: Femara Treatment Summary and Survivorship Plan mailed to home for review. Marked as complete on 06/09/19. Patient is encouraged to call the [facility] office with any additional questions or concerns. Enma Verdugo RN BS BSN Breast Health Nurse Navigator-Breast Center Breast lump 09/13/2018 Encounters Date Type Department Care Team Description 02/11/2025 External Device Data ST[facility] ABSTRACTION Provider, Abstract 02/02/2025 External Device Data STL ABSTRACTION Provider, Abstract 01/14/2025 External Device Data ST[facility] ABSTRACTION Provider, Abstract 12/24/2024 External Device Data STL ABSTRACTION Provider, Abstract 12/18/2024 External Device Data STL ABSTRACTION Provider, Abstract from Last 3 Months Family History Medical [...] 09/15/2024 Sexually Abused Not on file 09/15/2024 Comments No Sex and Gender Information Value Date Recorded Sex Assigned at Not on file Legal Sex Female 4:17 AM SENIOR 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 MANAGER Gender Identity Not on file Sexual Orientation Not on file Last Filed Vital Signs Vital Sign Reading Time Taken Comments Blood Pressure 138/87 09/15/2024 1:27 PM CDT Pulse 76 09/15/2024 1:27 PM CDT Temperature 36.7 C (98 F) 09/15/2024 1:27 PM CDT Respiratory Rate 25 11/22/2018 12:20 PM SENIOR RESTAURANT MANAGER Oxygen Saturation 97% 09/15/2024 1:27 PM [...] AM CDT Appointment [facility] [address] [place] [id number] Caron Mohan MD [address] [facility] [address] [place] [id number] 03/19/2025 11:30 AM CDT Office Visit [facility] Oncology and Hematology [address] [place] [phone] Caron Mohan MD [address] [facility] [address] [place] [id number] [place] [address] [place] [phone] Health Maintenance Due Date Last Done Comments DIABETES MICROALBUMIN ANNUAL SCREEN 1963 LDL CHOLESTEROL ANNUAL 1964 ZOSTER VACCINE (1 of 2) 1996 PNEUMOCOCCAL VACCINE 50+ YEA RS (2 of 2 - PPSV23) 02/11/2019 12/17/2018 RSV VACCINE (60+ or ) (1 - 1-dose 75+ series) 2021 DIABETES ANNUAL FOOT EXAM 10/03/2023 10/03/2022 INFLUENZA VACCINE (#1) 2024 2, 11/01/2020, 09/25/2019, Additional history exists COVID-19 Vaccine (2023-2 5 season) 2024 02/23/2021, 01/26/2021 DIABETES ANNUAL RETINAL EXAM 09/24/2024, 09/24/2023, 03/13/2023, Additional history exists Medicare Ad[place]age ([place]) Preventative Visit/Annual Wellness Visit 11/26/2024 12/06/2023 DIABETES HBA1C Q 6 MONTHS 12/21/20242023, 03/27/2023, 03/28/2022, Additional history exists DTAP/TDAP/TD VACCINES (2 - T d or Tdap) 09/13/2028 09/13/2018 COLORECTAL SCREENING Discontinued 01/07/2020, 01/07/2020, 01/07/2020, Additional history exists Colorectal Cancer Screening Discontinued OSTEOPOROSIS SCREENING Completed 4, 02/19/2024, 06/28/2021, Additional history exists FIT-DNA Q 3 years Discontinued FIT/FOBT Q 1 year Discontinued Flex Sig/CT Colonography Q 5 years Discontinued Medical Devices Implanted Type Area Automotive Parts Salesperson Device Identifier Shelf Expiration Date Model / Serial / Lot Hemostat Darrel Surg Mph Pwd 3gm [id number] - [id number] Implanted:Qt y: 1 on 07/09/2018 by Micki Cadena MD at [facility] Hemostatic Pelvis CR [employer] 03/23/2023 [id number] / [id number] / Hemostat Darrel Surg Mph Pwd 3gm [id number] - [id number] Implanted:Qt y: 1 on 07/09/2018 by Micki Cadena MD at [facility] Hemostatic N/A: Pelvis [employer] [id number] 10/23/2022 [id number] / / [id number] Procedures Procedure Name Priority Date/Time Associated Diagnosis Comments XR DEXA BONE DENSITY AXIAL 1 OR MORE SITES Routine 03/11/2019 Menopausal and perimenopausal disorder Malignant neoplasm of upper-inner quadrant of left breast in female, estrogen receptor positive (CMS/HCC) from Last 3 Months or Most Recently Relevant to Health Maintenance Results * XR DEXA BONE DENSITY AXIAL 1 OR MORE SITES (03/11/2019) Anatomical Region Laterality Modality Other us Caron Mohan MD DIAGNOSTIC IMAGING ORDERABLE S Final Result from Last 3 Months or Most Recently Relevant to Health Maintenance Insurance [employer] PPO MCR RX PRIME THERAPEUTICS Medicare Part D Advance Directives For more information, please contact: [phone] * Full Code (Latest Code Status on File) Date Activated Date Inactivated Comments 11/22/2018 9:15 AM 11/22/2018 2:32 PM * Full Code Date Activated Date Inactivated Comments 07/09/2018 2:57 PM 07/10/2018 7:38 PM * Full Code Date Activated Date Inactivated Comments 07/09/2018 7:18 AM 07/09/2018 2:57 PM Care Teams Pastoral Ministries Professor Relationship Specialty Start Date End Date Francisco Long MD PCP - General Internal Medicine 06/27/18
--- OUTSIDE RECORDS SUMMARY | 2025-03-02 08:59 | XMS_ITS | Encounter Summary ---
Author Organization [facility] Healthcare Address [address] [place] [address] Care Team Providers Care Community Living Instructor Name Role Phone Francisco Long MD Primary Care Provider [phone] Neil Ag MD PhD Unavailable [phone] Ita Vazquez MD Unavailable Caron Mohan MD Unavailable Pebbles Felton MD Unavailable [phone] Mariangel Quiñonez MD Primary Care Provide r Encounter Details Date Type Department Care Team (Late st Contact Info) Description 06/27/2021 Telephone [facility] [address] [place] [address] Beverly Sosa, RT Social History Tobacco Use [...] on file Legal Sex Female 12:21 PM 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 12/17/2021 03/02/2022 04/16/2022 3:05 AM C DT COVID: Suspected 12/08/2022 12/08/2022 12/08/2022 11:08 AM OIL CHANGE TECHNICIAN COVID19 12/08/2022 12/08/2022 12/18/2022 3:05 AM OIL CHANGE TECHNICIAN COVID: Recovered Comment:Added based on recent COVID infection. 12/18/2022 02/11/2023 03/18/2023 3:06 AM C DT documented as of this encounter Care Teams Community Living Instructor Relationship Specialty Start Date End Date Francisco Long MD PCP - General 02/23/17 05/15/22 Mariangel Quiñonez MD [address] [address] PCP - General Family Medicine 05/16/22 Neil Ag MD PhD [address] [place] [address] Radiation Oncologist Radiation Oncology 12/17/18 [place] [address] [facility] [address] [place] [address] Referring Physician General Surgery 12/17/18 [place] [address] [facility] [address] [place] [address] Medical Oncologist/Sr. Payroll Manager Medical Oncology 12/17/18 [place] [address] [facility] [address] [place] [address] Consulting Physician Gastroenterology 01/07/20 documented as of this encounter
--- OUTSIDE RECORDS SUMMARY | 2025-03-02 08:59 | XMS_ITS | Encounter Summary ---
Author Organization [facility] Address [address] [place] [address] Care Team Providers Care Residential Instructor Name Role Phone Francisco Long MD Primary Care Provider Unavail able Alex Nichols MD Unavailable [phone] Usha Bryan RN Unavailable [phone] Micki Cadena MD Unavailable [phone] Encounter Details Date Type Department Care Team (Late st Contact Info) Description 01/31/2016 Therapy Visit [facility] Orthopedics [address] [address] [place] [address] [address] Social History Tobacco Use Types [...] on filedocumented in this encounter Care Teams Residential Instructor Relationship Specialty Start Date End Date Francisco Long MD PCP - General Internal Medicine 07/03/14 [place] [address] [place] [address] Orthopedic Surgery 04/22/15 [place] [address] [place] [address] Phlebotomy Specialist 01/07/16 [place] [address] [place] [address] Surgical Oncologist Surgical Oncology 07/05/18 documented as of this encounter
--- OUTSIDE RECORDS SUMMARY | 2025-03-02 08:59 | XMS_ITS | Clinical Summary ---
Author Organization [facility] Address [address] [place] [address] Care Team Providers Care Refinery Operator Helper Name Role Phone Francisco Long MD Primary Care Provider Unavail able Alex Nichols MD Unavailable [phone] Usha Bryan RN Unavailable [phone] Micki Cadena MD Unavailable [phone] Source Comments [facility],non-owned Affiliates and Associated Physician Practices is amultiple site organization consisting of ambulatory clinics and hospital sitesin [place] and [place]. This disclosure is being madepursuant to the Care Everywhere program and may not contain all information available regarding this patient. Last updated 18.[facility] Allergies No known active allergies Medications [...] 7 days Resume when ok with your tar heat exchanger cleaner 3 01/07/2016 Active ELIQUIS 5 MG tablet [...] Comments Blood Pressure 117/64 01/08/2016 7:50 AM DIRECTOR QUALITY ASSURANCE Pulse 95 01/08/2016 7:50 AM DIRECTOR QUALITY ASSURANCE Temperature 36.7 C (98.1 F) 01/08/2016 7:50 AM DIRECTOR QUALITY ASSURANCE Respiratory Rate 18 01/08/2016 7:50 AM DIRECTOR QUALITY ASSURANCE Oxygen Saturation 93% 01/08/2016 7:50 AM DIRECTOR QUALITY ASSURANCE Inhaled Oxygen Concentration - - Weight 88.9 kg (196 lb) 01/06/2016 6:58 AM DIRECTOR QUALITY ASSURANCE Height 170.2 cm (5' 7 ) 01/06/2016 6:58 AM DIRECTOR QUALITY ASSURANCE Body Mass Index 30.7 01/06/2016 6:58 AM DIRECTOR QUALITY ASSURANCE Plan of Treatment Health Maintenance Due Date Last Done Comments BONE DENSITY TESTING 1945 MEDICARE AWV 12 MONTHS 1945 HEPATITIS C SCREENING 12/20/1964 DTAP/TDAP/TD VACCINES (1 - Tdap) 1965 PNEUMOCOCCAL VACCINE 50+ (1 of 1 - PCV) 1996 ZOSTER VACCINE (1 of 2) 1996 Respiratory Syncytial Virus (RSV) Vaccine Pt: or over 60 yrs (1 - 1-dose 75+ series) 2021 COVID-19 VACCINE ( - 2023-2 5 season) 2024 DEPRESSION SCREENING 11/26/2024 INFLUENZA VACCINE (Season Ended) 2025 HEPATITIS B VACCINE Aged Out No longe r eligible based on patient's age to complete this topic HIB VACCINE Aged Out No longer eligi ble based on patient's age to complete this topic HPV VACCINE Aged Out No longer eligi ble based on patient's age to complete this topic MENINGOCOCCAL (Group B) VACC INE SHARED DECISION-MAKING Aged Out No longer eligibl e based on patient's age to complete this topic MENINGOCOCCAL GROUPS A/C/Y/W VACCINE Aged Out No longer eligible b ased on patient's age to complete this topic Medical Devices Implanted Type Area Irrigator Device Identifier Shelf Expiration Date Model / Serial / Lot Amaury Bone Hammond Hv Implanted:Qty: 1 on 06/09/2015 by Alex Nichols MD at [facility] Left: Knee [employer] 12/27/2016 [id number] / / [id number] Kn Ins Vangurd Fem Cocr Intlok L 67.5mm Implanted:Qty: 1 on 06/09/2015 by Alex Nichols MD at [facility] Left: [employer]nee [employer] 04/28/2025 [id number] / / [id number] Ty Tibial I Beam Fix Bar 75mm Implanted:Qty: 1 on 06/09/2015 by Alex Nichols MD at [facility] Left: [employer]nee [employer] 03/26/2025 [id number] / / [id number] Butn Pat Arcom Wire Polyeth Xsm 28 X 8 Implanted:Qty: 1 on 06/09/2015 by Alex Nichols MD at [facility] Left: Knee [employer] 06/26/2019 [id number] / / [id number] Vangrd Ant Stblzd Brg 10mm X 75mm Implanted:Qty: 1 on 06/09/2015 by Alex Nichols MD at [facility] Left: [employer]nee [employer] 10/26/2018 [id number] / / [id number] Brdg Tib Thalia Stbl 12mm X 71mm Implanted:Qty: 1 on 01/06/2016 by Alex Nichols MD at [facility] Right: Knee [employer] 11/24/2020 [id number] / / [id number] Amaury Bone Hammond Hv Implanted:Qty: 1 on 01/06/2016 by Alex Nichols MD at [facility] Right: Knee [facility] [employer] 08/25/2017 [id number] / / [id number] Ty Tibial I Beam Fix Bar 71mm Implanted:Qty: 1 on 01/06/2016 by Alex Nichols MD at [facility] Right: [employer]nee [employer] 11/30/2025 [id number] / / [id number] Ins Kn Vangurd Fem Cocr R-Intlok 67.5mm Implanted:Qty: 1 on 01/06/2016 by Alex Nichols MD at [facility] Right: [employer]nee [employer] 11/01/2025 [id number] / / [id number] Ced Villatoro Arcom Wire Polyeth Xsm 28 X 8 Implanted:Qty: 1 on 01/06/2016 by Alex Nichols MD at [facility] Right: [employer]nee [employer] 11/11/2020 -[id number] / / [id number] Advance Directives * Full Code (Latest Code Status on File) Date Activated Date Inactivated Comments 01/06/2016 11:24 AM 01/08/2016 2:05 PM * Full Code Date Activated Date Inactivated Comments 06/09/2015 3:08 PM 06/12/2015 1:28 PM Care Teams Refinery Operator Helper Relationship Specialty Start Date End Date Francisco Long MD PCP - General Internal Medicine 07/03/14 [place] [address] [address] Orthopedic Surgery 04/22/15 [place] [address] [address] [place] [address] Aircraft Systems Technician 01/07/16 [place] [address] [address] [place] [address] Surgical Oncologist Surgical Oncology 07/05/18
--- OUTSIDE RECORDS SUMMARY | 2025-03-02 08:59 | XMS_ITS | Encounter Summary ---
Author Organization [facility] Address [address] [place] [address] Phone Care Team Providers Care Retail Assistant Name Role Phone Francisco Long MD Primary Care Provider [phone] Neil Ag MD PhD Unavailable [phone] [facility] Unavailable Caron Mohan MD Unavailable Marleni Chiu MA Unavailable [phone] Pebbles Felton MD Unavailable [phone] Mounika Cruz RN Unavailable [phone] Yamileth Meade MA Unavailable [phone] Mariangel Quiñonez MD Primary Care Provide r Encounter Details Date Type Department Care Team (Late st Contact Info) Description 2017 Orders Only [facility] Provider, MD Annabelle [address] [place] [address] Social History Tobacco Use Types Packs/Day Years Used Date Smoking Tobacco: Never Smokeless Tobacco: Never Alcohol Use Standard Drinks/Week Comments No 0 (1 standard drink = 0.6 oz pur e alcohol) Comments Unknown Sex and Gender Information Value Date Recorded Sex Assigned at Not on file Legal Sex Female 12:21 PM SHIPPING TRACK SUPERVISOR Gender Identity Not on file Sexual Orientation Not on file documented as of this encounter Plan of Treatment Not on file documented as of this encounter Procedures Procedure Name Priority Date/Time Associated Diagnosis Comments DISCHARGE LABORATORY CUMULATIVE REPORT 2017 12:00 AM SHIPPING TRACK SUPERVISOR documented in this encounter Results * DISCHARGE LABORATORY CUMULATIVE REPORT (2017 12:00 AM SHIPPING TRACK SUPERVISOR) Narrative 2017 12:00 AM SHIPPING TRACK SUPERVISOR Ordered by an unspecified provider. Historical Provider LAB BLOOD ORDERABLES Humaira l Result documented in this encounter Visit Diagnoses Not on filedocumented in this encounter Additional Health Concerns Infection Onset Date Last Indicated Resolved Time COVID: Suspected 12/28/2020 12/28/2020 12/29/2020 7:21 AM SHIPPING TRACK SUPERVISOR Respiratory Infection (TITI), contact + droplet Comment:Automatically added due to negative COVID-19 result. 12/29/2020 12/29/2020 01/12/2021 3:0 6 AM SHIPPING TRACK SUPERVISOR COVID: Suspected 12/07/2021 12/07/2021 12/07/2021 1:26 PM SHIPPING TRACK SUPERVISOR COVID19 12/07/2021 12/07/2021 12/17/2021 3:05 AM SHIPPING TRACK SUPERVISOR COVID: Recovered Comment:Added based on recent COVID infection. 12/17/2021 03/02/2022 04/16/2022 3:05 AM C DT COVID: Suspected 12/08/2022 12/08/2022 12/08/2022 11:08 AM SHIPPING TRACK SUPERVISOR COVID19 12/08/2022 12/08/2022 12/18/2022 3:05 AM SHIPPING TRACK SUPERVISOR COVID: Recovered Comment:Added based on recent COVID infection. 12/18/2022 02/11/2023 03/18/2023 3:06 AM C DT documented as of this encounter Care Teams Retail Assistant Relationship Specialty Start Date End Date Francisco Long MD PCP - General 02/23/17 05/15/22 Mariangel Quiñonez MD [address] [address] PCP - General Family Medicine 05/16/22 Neil Ag MD PhD [address] [place] [address] Radiation Oncologist Radiation Oncology 12/17/18 [place] [address] [facility] [address] [place], [place] [id number] Referring Physician General Surgery 12/17/18 [place] [address] [address] [facility] [address] [place], [place] [id number] Medical Oncologist/Computer Forensics Examiner Medical Oncology 12/17/18 Marleni Chiu MA [address] [place] [address] [address] [place] [address] ACO Care Foreclosure Field Inspector 12/04/19 12/04/19 Pebbles Felton MD [address] [place] [address] [address] [place] [address] Consulting Physician Gastroenterology 01/07/20 Mounika Cruz RN [address] [place] [address] [address] [place] [address] Hat Designer 11/17/20 11/28/20 Yamileth Meade MA [address] [place] [address] [address] [place], [place] [id number] ACO Care Foreclosure Field Inspector 04/26/21 04/26/21 documented as of this encounter
--- OUTSIDE RECORDS SUMMARY | 2025-03-02 08:59 | XMS_ITS | Encounter Summary ---
Author Organization [facility] Address [address] [facility] [place] [address] Care Team Providers Care Packing Attendant Name Role Phone Francisco Long MD Primary Care Provider Unavail able Alex Nichols MD Unavailable [phone] Usha Bryan RN Unavailable [phone] Micki Cadena MD Unavailable [phone] Encounter Details Date Type Department Care Team (Late st Contact Info) Description 06/30/2015 Therapy Visit [facility] Orthopedics [address] [address] [place] [address] [address] Social History Tobacco Use Types [...] on filedocumented in this encounter Care Teams Packing Attendant Relationship Specialty Start Date End Date Francisco Long MD PCP - General Internal Medicine 07/03/14 [place] [address] [place] [address] Orthopedic Surgery 04/22/15 [place] [address] [place] [address] Private Pilot 01/07/16 [place] [address] [place] [address] Surgical Oncologist Surgical Oncology 07/05/18 documented as of this encounter
--- OUTSIDE RECORDS SUMMARY | 2025-03-02 08:59 | XMS_ITS | Clinical Summary ---
Author Organization [facility] Address [address] [place] [address] Care Team Providers Care [employer] Area Supervisor Name Role Phone Neil Ag MD PhD Unavailable Ita Vazquez MD Unavailable Caron Mohan MD Unavailable Pebbles Felton MD Unavailable [phone] Mariangel Quiñonez MD Primary Care Provide r [...] daily 90 tablet 1 4 Active iron erokby-Q-Y90-Ca -suc-stoma (MULTIGEN) 70 mg-150 mg-10 mcg-2 mg-75 mg tablet 1 tablet daily Activ e Active Problems Problem Noted Date Diagnosed Date BMI 28.0-28.9,adult 06/26/2024 Left hip pain 12/06/2023 Assessment & Plan (12/06/2023 12:23 PM MICROBIOLOGY SUPERVISOR): New concern Not at goal Muscle spasm Referral to physical therapy Flexeril 5mg at night Do not operate heavy machinery If no improvement will get xrays and referral to pain management F/u prn Encounter for wellness examination 10/02/2022 Assessment & Plan (12/06/2023 12:02 PM MICROBIOLOGY SUPERVISOR): Ordered CBC, cmp, lipid, hgb a1c, TSH, Flu declines Zoster declines pcv20 declines Colonoscopy:up to date Pap smear:followed with ob Mammo:follows with Dr. Kimberlee Silva in 1 year for annual Assessment & Plan (10/03/2022 10:39 AM MICROBIOLOGY SUPERVISOR): Ordered CBC, cmp, lipid, hgb a1c, TSH, Flu given today Colonoscopy:up to date Pap smear:follows with ob Mammo:follows with Dr. Kimberlee Silva in 1 year for annual Iron deficiency anemia 01/07/2021 Overview (01/07/2021): Added automatically from request for surgery [id number] Assessment & Plan (06/26/2024 1:16 PM CDT): Stable / clinically quiescent. Will continue to monitor. Iron panel ordered for 6 months Assessment & Plan (12/06/2023 12:20 PM MICROBIOLOGY SUPERVISOR): Stable / clinically quiescent. Will continue to monitor. Iron panel ordered Acute upper GI bleed 01/03/2021 Overview (01/03/2021): Added automatically from request for surgery [id number] Type 2 diabetes mellitus with hyperlipidemia 03/2021 [...] months Assessment & Plan (12/06/2023 11:44 AM MICROBIOLOGY SUPERVISOR): The patient was counseled on a heart-healthy, [...] months Assessment & Plan (10/02/2022 9:57 PM MICROBIOLOGY SUPERVISOR): The patient was counseled on a heart-healthy, [...] 07/02/2020 Assessment & Plan (12/06/2023 7:16 AM MICROBIOLOGY SUPERVISOR): eliquis was stopped because of hx of GI bleeding Assessment & Plan (10/03/2022 10:17 AM MICROBIOLOGY SUPERVISOR): eliquis was stopped because of hx of GI bleeding Chronic GERD 07/02/2020 History of breast cancer 07/02/2020 Assessment & Plan (12/06/2023 7:16 AM MICROBIOLOGY SUPERVISOR): Still follows with Dr. Mohan Continue with letrozole Assessment & Plan (10/03/2022 10:19 AM MICROBIOLOGY SUPERVISOR): Still follows with Dr. Mohan Continue with letrozole History of uterine cancer 07/02/2020 Assessment & Plan (12/06/2023 7:16 AM MICROBIOLOGY SUPERVISOR): She follows with ob Assessment & Plan (10/03/2022 10:19 AM MICROBIOLOGY SUPERVISOR): She follows with ob High risk of cardiac event 07/01/2020 Iron deficiency anemia due to chronic blood loss 01/06/2020 Assessment & Plan (01/06/2020 5:46 AM MICROBIOLOGY SUPERVISOR): Likely GI source as patient has positive guaiac. Hemoglobin was as high as 11.1 in November. Patient has been seen by GI and 1 unit of PRBCs ordered. Awaiting repeat hemoglobin. Ferrlecit ordered by Dr. Felton already. Continue to monitor. Will hold anticoagulation for now. Chronic diastolic heart failure 12/03/2019 Assessment & Plan (12/06/2023 7:15 AM MICROBIOLOGY SUPERVISOR): stable Assessment & Plan (10/02/2022 9:56 PM MICROBIOLOGY SUPERVISOR): stable Malignant neoplasm of upper- inner quadrant of left breast in female, estrogen receptor positive 12/17/2018 Cancer Staging:Pathologic stage from 12/17/2018:Stage IA(pT1b, pN1mi(sn), cM0, G2, ER: Positive, NC: Positive, HER2: Negative) - Signed by Neil Ag MD PhD on 12/17/2018 Assessment & Plan (01/06/2020 5:46 AM MICROBIOLOGY SUPERVISOR): Hold letrozole for now as it increases risk for thromboembolism. Assessment & Plan (12/02/2019 7:15 PM MICROBIOLOGY SUPERVISOR): S/p lumpectomy, home letrozole to be replaced with formulary anastrozole while inpatient per pharmacy. Followed by moisture meter reader onc as an outpatient. Mixed hyperlipidemia 11/28/2017 Assessment & Plan (12/06/2023 12:19 PM MICROBIOLOGY SUPERVISOR): Stable / clinically quiescent. Will continue to monitor. Unable to tolerate statin medication at any dose Causes muscle aches Lipid panel ordered Assessment & Plan (04/03/2023 10:57 AM CDT): Stable / clinically quiescent. Will continue to monitor. Continue statin Assessment & Plan (10/02/2022 9:55 PM MICROBIOLOGY SUPERVISOR): Stable / clinically quiescent. Will continue to monitor. Continue statin Essential hypertension 11/28/2017 Assessment & Plan (06/26/2024 6:59 AM CDT): Bp in the office today BP Readings from Last 1 Encounters: 12/06/23 132/80 Continue current regimen of carvedilol and losartan 100mg daily Recommend DASH diet, heart-healthy lifestyle, exercise. Discussed the risks of hypertension. F/u in 6 months Assessment & Plan (12/06/2023 11:32 AM MICROBIOLOGY SUPERVISOR): Bp in the office today BP Readings [...] months Assessment & Plan (10/03/2022 10:15 AM MICROBIOLOGY SUPERVISOR): Bp in the office today BP Readings from Last 1 Encounters: 10/03/22 136/78 Continue current regimen of carvedilol and losartan Recommend DASH diet, heart-healthy lifestyle, exercise. Discussed the risks of hypertension. F/u in1 year Assessment & Plan (01/06/2020 5:42 AM MICROBIOLOGY SUPERVISOR): Currently normotensive. Continue carvedilol with hold parameters. Holding losartan and hydrochlorothiazide for now. Assessment & Plan (12/02/2019 7:14 PM MICROBIOLOGY SUPERVISOR): Continue home antihypertensives. Rheumatoid arthritis involvi ng multiple sites with positive rheumatoid factor 11/28/2017 Assessment & Plan (12/06/2023 7:16 AM MICROBIOLOGY SUPERVISOR): Stable Continue with rheumatology Continue with methotrexate Assessment & Plan (10/03/2022 10:21 AM MICROBIOLOGY SUPERVISOR): Stable Continue with rheumatology Continue with methotrexate Assessment & Plan (01/06/2020 5:42 AM MICROBIOLOGY SUPERVISOR): Patient is on methotrexate which she takes on Sunday. Assessment & Plan (12/02/2019 7:16 PM MICROBIOLOGY SUPERVISOR): Continue home methotrexate, administered weekly on Wednesdays. Hiatal hernia Resolved Problems Problem Noted Date Diagnosed Date Resolved Date Gastrointestinal hemorrhage associated with anorectal source 01/05/2020 07/02/2020 Overview (01/06/2020): Added automatically from request for surgery [id number] Bilateral pulmonary embolism 12/02/2019 07/02/2020 Assessment & Plan (12/02/2019 7:13 PM MICROBIOLOGY SUPERVISOR): Cause shortness of breath cough, seen on chest CT today. Therapeutic Lovenox started in ED, switched to Eliquis for outpatient therapy. TTE ordered for AM to ensure no right heart strain. Cause unclear at this point, chest CT showed a nodular density in the left breast and recommended follow-up mammogram, however patient had a normal mammogram 3 weeks ago from her moisture meter reader onc physician at [facility] (results in Care Everywhere). Encounter for screening colonoscopy 09/29/2019 07/02/2020 Overview (09/29/2019): Added automatically from request for surgery [id number] Malignant neoplasm of uterus 12/17/2018 07/02/2020 Assessment & Plan (12/02/2019 7:15 PM MICROBIOLOGY SUPERVISOR): S/p hysterectomy. Viral URI with cough 10/30/2018 019 Assessment & Plan (10/30/2018 11:28 AM MICROBIOLOGY SUPERVISOR): Likely viral based on symptoms. Flonase prescribed, conservative management advised including use of a nasal rinses, humidifier or paper eyes are along with indication to f/u in office with any worsening symptoms or persistent symptoms. Pre-diabetes 11/28/2017 11/30/2020 Benign hypertension 04/11/2014 12/17/19 19 Overview (03/01/2017): BENIGN HYPERTENSION Encounters Date Type Department Care Team Description 12/22/2024 Telephone [facility] Primary Care at [address] [place] [address] Rayna Guzman MA 12/09/2024 Telephone [facility] Primary Care at [address] [place] [address] Mariangel Quiñonez MD Medical Question/Miscellaneous from Last 3 Months Immunizations Immunization Administration Dates Next Due Influenza, [...] Screening mammogram, encounter for 1945 Uterine cancer (HCC) 04/2018 GERD (gastroesophageal reflux disease) Anemia [...] file Legal Sex Female 12:21 PM MICROBIOLOGY SUPERVISOR Gender Identity Not on file Sexual [...] Health Maintenance Due Date Last Done Comments Foot Exam 10/03/2023 10/03/2022, 11/2020, 12/06/2020, Additional history exists Covid-19 Vaccine ( season) 2024 09/25/2021, 02/23/2021, 01/26/2021 Influenza Vaccine (#1) 2024 , 11/01/2020, 09/25/2019, Additional history exists Well Visit 65+ 12/06/2024 12/06/2023, 110 06/2022, 09/28/2021, Additional history exists Hemoglobin A1C 06/16/2025 12/17/2024, 05/27, 03/27/2023, Additional history exists Depression Screening 06/26/2025 06/26/2024, 12/06/2023, 04/03/2023, Additional history exists Fall Risk Assessment 06/26/2025 06/26/2024, 12/06/2023, 04/03/2023, Additional history exists Pneumococcal vaccine 65+ (2 of 2 - PPSV23) 06/26/2025 12/17/2018 Postponed from 02/11/2019 (Patient declined, but will receive in the future) Zoster Vaccine (1 of 2) 06/26/2025 Post poned from 1964 (Patient declined, but will receive in the future) Dilated Eye Exam 08/28/2025 08/28/2023, 03/08/2022 Lipid Panel 12/17/2025 12/17/2024, 05/27, 03/27/2023, Additional history exists eGFR 12/17/2025 12/17/2024, 05/27, 03/27/2023, Additional history exists Albumin Creatinine Ratio, Urine 12/23/2025 12/23/2024, 06/20/2024, 03/27/2023, Additional history exists Osteoporosis Screening-Bone Density Scan 02/18/2026 02/19/2024, 06/28/2021, [...] 01/07/2020, 10/05/2009, 10/05/2009 Colorectal Cancer Screening Discontinued Hepatitis B Screening Completed 12/17/2024 Procedures Procedure Name Priority Date/Time Associated Diagnosis Comments COPY(IES) SENT TO: Routine 12/23/2024 12:18 PM MICROBIOLOGY SUPERVISOR ALBUMIN CREATININE RATIO, URINE Routine 12/23/2024 12:18 PM MICROBIOLOGY SUPERVISOR Routine health maintenance TSH W/REFL FT4 Routine 12/17/2024 8:52 AM MICROBIOLOGY SUPERVISOR COPY(IES) SENT TO: Routine 12/17/2024 8: 52 AM MICROBIOLOGY SUPERVISOR IRON PROFILE W/ IBC Routine 12/17/2024 8 :52 AM MICROBIOLOGY SUPERVISOR Routine health maintenance Iron deficiency anemia secondary to inadequate dietary iron intake HEMOGLOBIN A1C Routine 12/17/2024 8:52 AM MICROBIOLOGY SUPERVISOR Routine health maintenance 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) LIPID PANEL Routine 12/17/2024 8:52 AM MICROBIOLOGY SUPERVISOR Routine health maintenance COMPREHENSIVE METABOLIC PANEL Routine 12/17/2024 8:52 AM MICROBIOLOGY SUPERVISOR Routine health maintenance CBC WITH AUTO DIFFERENTIAL Routine 12/17/2024 8:52 AM MICROBIOLOGY SUPERVISOR Routine health maintenance HEPATITIS B SURFACE ANTIBODY (IMMUNE STATUS) Routine 12/17/2024 8:52 AM MICROBIOLOGY SUPERVISOR Need for hepatitis B screening test HEPATITIS B CORE ANTIBODY, TOTAL Routine 12/17/2024 8:52 AM MICROBIOLOGY SUPERVISOR Need for hepatitis B screening test HEPATITIS B SURFACE ANTIGEN Routine 12/17/2024 8:52 AM MICROBIOLOGY SUPERVISOR Need for hepatitis B screening test DEXA AXIAL SKELETON BONE DENSITY 1 OR MORE SITES Schedule Routine, Read Routine (OP Routine) 02/19/2024 9:29 AM CDT Menopause HM DIABETES EYE EXAM Routine 08/28/2023 12:56 PM CDT COLONOSCOPY 01/07/2020 9:12 AM MICROBIOLOGY SUPERVISOR DIAGNOSTIC MAMMOGRAM BILATERAL W MOODY Schedule Routine, Read Routine (OP Routine) 11/12/2019 HEPATITIS C AB REFLEX RNA QUANT PCR Routine 05/11/2017 5:12 PM CDT from Last 3 Months or Most Recently Relevant to Health Maintenance Results * COPY(IES) SENT TO: (12/23/2024 12:18 PM MICROBIOLOGY SUPERVISOR) COPY(IES) SENT TO: [facility] Comment: [facility] [address] [place] [address] 12/23/2024 12:1 8 PM MICROBIOLOGY SUPERVISOR 12/24/2024 12:21 AM MICROBIOLOGY SUPERVISOR Narrative [facility] - 2024 3:04 AM MICROBIOLOGY SUPERVISOR SPLIT 12/17/2024 FROM [id number] FASTING:NO FASTING: NO us Mariangel Quiñonez MD LAB BLOOD ORDERABLES Final Result Performing Organization Address City/[facility] Co de Phone Number [facility] * Albumin Creatinine Ratio, Urine (12/23/2024 12:18 PM MICROBIOLOGY SUPERVISOR) Creatinine, ur 124 20 - 275 mg/dL [...] diagnostic category. Urine 12/23/2024 12:1 8 PM MICROBIOLOGY SUPERVISOR 12/24/2024 12:21 AM MICROBIOLOGY SUPERVISOR Narrative [facility] - 2024 3:04 AM MICROBIOLOGY SUPERVISOR SPLIT 12/17/2024 FROM [id number] FASTING:NO FASTING: NO us Mariangel Quiñonez MD LAB URINE ORDERABLES Final Result Performing Organization Address City/[facility] Co de Phone Number [facility] [address] [place] [address] * COPY(IES) SENT TO: (12/17/2024 8:52 AM MICROBIOLOGY SUPERVISOR) COPY(IES) SENT TO: [facility] Comment: [facility] [address] [place] [address] 12/17/2024 8:52 AM MICROBIOLOGY SUPERVISOR 12/17/2024 8:57 AM MICROBIOLOGY SUPERVISOR Narrative [facility] - 12/19/2024 1:49 AM MICROBIOLOGY SUPERVISOR FASTING:YES PATIENT UNABLE TO VOID; ADVISED TO RETURN FOR COLLECTION. FASTING: YES Mariangel Quiñonez MD LAB BLOOD ORDERABLES Final Result Performing Organization Address [facility] de Phone Number [facility] * TSH W/REFL FT4 (12/17/2024 8:52 AM MICROBIOLOGY SUPERVISOR) TSH 3.06 0.40 - 4.50 mIU/L [facility] 12/17/2024 8:52 AM MICROBIOLOGY SUPERVISOR 12/17/2024 8:57 AM MICROBIOLOGY SUPERVISOR Narrative [facility] - 12/19/2024 1:49 AM MICROBIOLOGY SUPERVISOR FASTING:YES PATIENT UNABLE TO VOID; ADVISED TO RETURN FOR COLLECTION. FASTING: YES Mariangel Quiñonez MD LAB BLOOD ORDERABLES Final Result Performing Organization Address [facility] Co de Phone Number [facility] [address] [place] [address] * (ABNORMAL) Iron profile w/ IBC (12/17/2024 8:52 AM MICROBIOLOGY SUPERVISOR) Iron 48 45 - 160 mcg/dL [facility] TIBC 383 250 - 450 mcg/dL (calc) [facility] Iron saturation 13(L) 16 - 45 % (calc) [facility] Blood 12/17/2024 8:52 AM MICROBIOLOGY SUPERVISOR 12/17/2024 8:57 AM MICROBIOLOGY SUPERVISOR Narrative [facility] - 12/19/2024 1:49 AM MICROBIOLOGY SUPERVISOR FASTING:YES PATIENT UNABLE TO VOID; ADVISED TO RETURN FOR COLLECTION. FASTING: YES us Mariangel Quiñonez MD LAB BLOOD ORDERABLES Final Result [facility] [address] [phone] * (ABNORMAL) CBC with auto differential (12/17/2024 8:52 AM MICROBIOLOGY SUPERVISOR) Pathologist [facility] WBC 6.3 3.8 - 10.8 Thousand/u L [...] [facility] Blood 12/17/2024 8:52 AM MICROBIOLOGY SUPERVISOR 12/17/2024 8:57 AM MICROBIOLOGY SUPERVISOR Narrative [facility] - 12/19/2024 1:49 AM MICROBIOLOGY SUPERVISOR FASTING:YES PATIENT UNABLE TO VOID; ADVISED TO RETURN FOR COLLECTION. FASTING: YES Mariangel Quiñonez MD LAB BLOOD ORDERABLES Final Result Performing Organization Address [facility] Co de Phone Number [facility] [address] [place] [address] * Hepatitis B core antibody, total Blood (12/17/2024 8:52 AM MICROBIOLOGY SUPERVISOR) Hep B core IgG/IgM NON-REACTI VE NON-REACTI VE [facility] Comment: For additional information, please refer to http://education.[employer]/faq/JFU569 (This link is being provided for informational/ educational purposes only.) Blood 12/17/2024 8:52 AM MICROBIOLOGY SUPERVISOR 12/17/2024 8:57 AM MICROBIOLOGY SUPERVISOR Narrative [facility] - 12/19/2024 1:49 AM MICROBIOLOGY SUPERVISOR FASTING:YES PATIENT UNABLE TO VOID; ADVISED TO RETURN FOR COLLECTION. FASTING: YES Mariangel Quiñonez MD LAB MICROBIOLOGY - GE NERAL ORDERABLES Final Result Performing Organization Address [facility] Co de Phone Number [facility] [address] [place] [address] * Hepatitis B surface antibody (immune status) Blood (12/17/2024 8:52 AM MICROBIOLOGY SUPERVISOR) HBsAb (immune status) NON-REACTI VE NON-REACTI VE [facility] Blood 12/17/2024 8:52 AM MICROBIOLOGY SUPERVISOR 12/17/2024 8:57 AM MICROBIOLOGY SUPERVISOR Narrative [facility] - 12/19/2024 1:49 AM MICROBIOLOGY SUPERVISOR FASTING:YES PATIENT UNABLE TO VOID; ADVISED TO RETURN FOR COLLECTION. FASTING: YES Mariangel Quiñonez MD LAB MICROBIOLOGY - GE NERAL ORDERABLES Final Result Performing Organization Address [facility] Phone Number [facility] [address] [place] [address] * Hepatitis B Surface Antigen Blood (12/17/2024 8:52 AM MICROBIOLOGY SUPERVISOR) HepBsAg NON-REACTI VE NON-REACTI VE [facility] Comment: For additional information, please refer to http://education.[employer]/faq/QMW981 (This link is being provided for informational/ educational purposes only.) Blood 12/17/2024 8:52 AM MICROBIOLOGY SUPERVISOR 12/17/2024 8:57 AM MICROBIOLOGY SUPERVISOR Narrative [facility] - 12/19/2024 1:49 AM MICROBIOLOGY SUPERVISOR FASTING:YES PATIENT UNABLE TO VOID; ADVISED TO RETURN FOR COLLECTION. FASTING: YES Mariangel Quiñonez MD LAB MICROBIOLOGY - GE NERAL ORDERABLES Final Result Performing Organization Address [facility] Phone Number [facility] [address] [place] [address] * (ABNORMAL) Hemoglobin A1c (12/17/2024 8:52 AM MICROBIOLOGY SUPERVISOR) Hgb A1C 6.5(H) <5.7 % of total Hgb [facility] [...] diabetes for children. Blood 12/17/2024 8:52 AM MICROBIOLOGY SUPERVISOR 12/17/2024 8:57 AM MICROBIOLOGY SUPERVISOR Narrative [facility] - 12/19/2024 1:49 AM MICROBIOLOGY SUPERVISOR FASTING:YES PATIENT UNABLE TO VOID; ADVISED TO RETURN FOR COLLECTION. FASTING: YES Mariangel Quiñonez MD LAB BLOOD ORDERABLES Final Result [facility] [address] [place] [address] * (ABNORMAL) Lipid panel (12/17/2024 8:52 AM MICROBIOLOGY SUPERVISOR) Pathologist [facility] Cholesterol 250(H) <200 mg/dL [facility] [...] LDL-C. Harry YUAN et al. RANDALL. 2013;310(19): 4326-4033 (http://education.[employer]/faq/BAD156) Chol/HDL ratio 4.2 <5.0 (calc) [facility] Non-HDL, (LDL+VLDL) 191(H) <130 mg/dL (calc) [facility] Comment: For patients with diabetes plus 1 major ASCVD risk factor, treating to a non-HDL-C goal of <100 mg/dL (LDL-C of <70 mg/dL) is considered a therapeutic option. Blood 12/17/2024 8:52 AM MICROBIOLOGY SUPERVISOR 12/17/2024 8:57 AM MICROBIOLOGY SUPERVISOR Narrative [facility] - 12/19/2024 1:49 AM MICROBIOLOGY SUPERVISOR FASTING:YES PATIENT UNABLE TO VOID; ADVISED TO RETURN FOR COLLECTION. FASTING: YES us Mariangel Quiñonez MD LAB BLOOD ORDERABLES Final Result [facility] [address] [phone] * (ABNORMAL) Comprehensive metabolic panel (12/17/2024 8:52 AM MICROBIOLOGY SUPERVISOR) Glucose 134(H) 65 - 99 mg/dL [facility] [...] - 22 (calc) [facility] Comment: Not [...] [facility] Blood 12/17/2024 8:52 AM MICROBIOLOGY SUPERVISOR 12/17/2024 8:57 AM MICROBIOLOGY SUPERVISOR Narrative [facility] - 12/19/2024 1:49 AM MICROBIOLOGY SUPERVISOR FASTING:YES PATIENT UNABLE TO VOID; ADVISED TO RETURN FOR COLLECTION. FASTING: YES us Mariangel Quiñonez MD LAB BLOOD ORDERABLES Final Result [facility] [address] [phone] * Dexa Axial Skeleton Bone Density 1 or 2 Site (02/19/2024 9:29 AM CDT) Anatomical Region Laterality Modality Body N/A Other 02/19/2024 4:29 PM CDT Narrative 02/19/2024 4:29 PM CDT EXAM DESCRIPTION: DEXA AXIAL SKELETON BONE DENSITY 1 OR MORE SITES REASON FOR STUDY: 78 y/o year old F with given history of: MENOPAUSE Osteoporosis screening Post menopausal Manager Entry/Model: [employer] SL (S/N 40750) CLINICAL INFORMATION: Current height: 67 inches Maximum [...] Caesar Navarro M.D. MF: MAXINE Report ID: [id number] Reading Location: [place] [address] Procedure Note Caesar Navarro MD - 02/19/2024 EXAM DESCRIPTION: DEXA AXIAL SKELETON BONE DENSITY 1 OR MORE SITES REASON FOR STUDY: 78 y/o year old F with given history of: MENOPAUSE Osteoporosis screening Post menopausal Manager Entry/Model: [employer] (S/N 44679) CLINICAL INFORMATION: Current height: 67 inches Maximum [...] see below follow up recommendations. [facility] causes of low bone mineral density may [...] Caesar Navarro M.D. MF: MAXINE Report ID: [id number] Reading Location: [id number] Caron Mohan MD IMXiomy DXA PROCEDURES Fi nal Result * DIABETES EYE EXAM (08/28/2023 12:56 PM CDT) SCRIBED DIABETIC DILATED EYE EXAM Normal Historical Provider HEALTH MAINTENANCE Final Result * COLONOSCOPY (01/07/2020 9:12 AM MICROBIOLOGY SUPERVISOR) Anatomical Region Laterality Modality Other Narrative Procedure Note Pebbles Felton MD - 01/07/2020 9:12 AM CST [facility] Patient Name: Jolene Cedillo Procedure Date: 01/07/2020 9:12 AM Date of : 1945 Admit Type: Inpatient Age: 74 Gender: Female Attending MD: Pebbles Felton M.D. Room: [facility] ENDOSCOPY ROOM 1 Note Status: Finalized [...] passed under direct vision.The Pediatric Colonoscope PCF-H190L [id number] was introduced through the anus and advanced [...] 9:12 AM Procedure Code(s): --- Professional --- 76283, Colonoscopy, flexible; with removal of tumor(s), polyp(s), or other lesion(s) by snare technique 40947, 59, Colonoscopy, flexible; with biopsy, single or multiple Diagnosis Code(s): --- Professional --- K64.8, Other hemorrhoids D12.0, Benign neoplasm of cecum D12.4, Benign neoplasm of descending colon R19.5, Other fecal abnormalities D50.9, Iron deficiency anemia, unspecified K57.30, Diverticulosis of large intestine without perforation orabscess without bleeding CPT copyright 2017 [employer]. All rights reserved. The codes documented in this report are preliminary and upon machine set up operator reviewmay be revised to meet current compliance requirements. Recognized by the [employer] [employer] for promoting quality in endoscopy Pebbles Felton MD ENDOSCOPY PROCEDURES Final Result * Diagnostic Mammogram Bilateral W Moody (11/12/2019) Anatomical Region Laterality Modality Breast Bilateral Mammography Narrative 11/12/2019 In care everywhere from [facility] us Historical Provider IMG MAMMO PROCEDURES Humaira l Result * Hepatitis C Antibody Reflex Hepatitis C RNA Quantitative PCR (05/11/2017 5:12 PM CDT) Hep C Ab Negative Negative [facility] Blood specimen (specimen) 05/11/2017 5:12 PM CDT 05/11/2017 5:34 PM CDT Francisco Long MD LAB MICROBIOLOGY - GENERAL ORD ERABLES Final Result [facility] [id number] Department [place] [address] from Last 3 Months or Most Recently Relevant to Health Maintenance Insurance Informative [employer] MEDICARE [facility] SUPPLEMENT INSURANCE [facility] GENERIC [facility] SUPPLEMENT INSURANCE [facility] [facility] ADVANTRA Advance Directives For more information, please contact: [phone] * Full Code (Latest Code Status on [...] 5:42 PM 01/07/2020 8:26 AM Care Teams Retail Chain Store Area Supervisor Relationship Specialty Start Date End Date Mariangel Quiñonez MD [address] [address] PCP - General Family Medicine 05/16/22 Neil Ag MD PhD [address] [place] [address] Radiation Oncologist Radiation Oncology 12/17/18 [place] [id number] [address] Referring Physician General Surgery 12/17/18 [place] [id number] [address] [address] Medical Oncologist/Convex Grinder Operator Medical Oncology 12/17/18 [place] [id number] [address] Consulting Physician Gastroenterology 01/07/20
--- OUTSIDE RECORDS SUMMARY | 2025-03-02 08:59 | XMS_ITS ---
Author Organization [facility] Address [address] [place] [address] Phone Care Team Providers Care Torpedo Man Name Role Phone Francisco Long MD [...] of diagnosis: 09/23/18 Diagnosis: LEFT IDC ER(+) GA(+) Her 2 (-) Surgeon: Taylor Surgery: 11/22/18 left lump/SLN Medical Oncologist: Kimberlee Chemotherapy: none Radiation Oncologist: Dr. John Ag office at [facility] Radiation: Hormonal therapy: Femara Treatment Summary and Survivorship Plan mailed to home for review. Marked as complete on 06/09/19. Patient is encouraged to call the [facility] office with any additional questions or concerns. Enma Verdugo RN BS BSN Breast Health Nurse Navigator-[facility] Center Breast lump 09/13/2018 Current Treatment and Therapy Plans No current plan information found. Past Treatment and Therapy Plans No past plan information found. Lifetime Dose Tracking * Chemical Lifetime Dose Automatic Entry Manual Entr y Effective Dose 7.8 mSv 7.8 mSv 0 mSv Total DLP 519 DLP 519 DLP 0 DLP CTDIvol Max 10.9 mGy 10.9 mGy 0 mGy CTDIvol Min 10.9 mGy 10.9 mGy 0 mGy Treatment Summaries Malignant neoplasm of upper-inner quadrant of left breast in female, estrogen receptor positive (CMS/HCC)* Breast Cancer Survivorship Care Plan Provided by Cindy on 06/09/19 General Information Patient Name: Jolene Cedillo Patient : 1945 Care Team Medical Oncologist: Dr. Caron Mohan Surgeon: Dr. Ita Vazquez Radiation Oncologist: Dr. John Ag [facility] Primary Care Physician: Dr. Francisco Long marketing pr intern Physician: Dr. Olivia Bolden Stage: Clinical T1 N0; pT1c snN1mi Date of diagnosis: 09/23/18 Diagnosis: Left Invasive Ductal Carcinoma ER(+) GA(+) Her 2 (-) Treatment Summary Chemotherapy Not indicated; Oncotype Dx Recurrence Score = 7, no benefit to chemotherapy Dates: 12/24/18 Radiation Type: External Beam Radiation Site: Left Dates: completed 01/29/19 Surgery Lumpectomy - Left with sentinel lymph node biopsy involving micrometastatic carcinoma in one of two lymph nodes ([id number]). Date: 11/22/18 Endocrine 2.5mg Femara - take [...] estrogen based vaginal creams such as Estrace. [employer] Guidelines on Nutrition and Physical [...] hot dogs), desserts, high-fat dairy products and Vietnamese fries. Most of the studies about cancer [...]
--- OUTSIDE RECORDS SUMMARY | 2025-03-02 08:59 | XMS_ITS ---
Author Organization [facility] Address [address] [place] [address] Care Team Providers Care Tung Nut Grower Name Role Phone Neil Ag MD PhD Unavailable Ita Vazquez MD Unavailable Caron Mohan MD Unavailable Pebbles Felton MD Unavailable [phone] Mariangel Quiñonez MD Primary Care Provide r Active Problems Problem Noted Date Diagnosed Date BMI 28.0-28.9,adult 06/26/2024 Left hip pain 12/06/2023 Assessment & Plan (12/06/2023 12:23 PM CHIP CRUSHER OPERATOR): New concern Not at goal Muscle spasm Referral to physical therapy Flexeril 5mg at night Do not operate heavy machinery If no improvement will get xrays and referral to pain management F/u prn Encounter for wellness examination 10/02/2022 Assessment & Plan (12/06/2023 12:02 PM CHIP CRUSHER OPERATOR): Ordered CBC, cmp, lipid, hgb a1c, TSH, Flu declines Zoster declines pcv20 declines Colonoscopy:up to date Pap smear:followed with ob Mammo:follows with Dr. Mohan F/u in 1 year for annual Assessment & Plan (10/03/2022 10:39 AM CHIP CRUSHER OPERATOR): Ordered CBC, cmp, lipid, hgb a1c, TSH, Flu given today Colonoscopy:up to date Pap smear:follows with ob Mammo:follows with Dr. Mohan F/u in 1 year for annual Iron deficiency anemia 01/07/2021 Overview (01/07/2021): Added automatically from request for surgery [id number] Assessment & Plan (06/26/2024 1:16 PM CDT): Stable / clinically quiescent. Will continue to monitor. Iron panel ordered for 6 months Assessment & Plan (12/06/2023 12:20 PM CHIP CRUSHER OPERATOR): Stable / clinically quiescent. Will continue to monitor. Iron panel ordered Acute upper GI bleed 01/03/2021 Overview (01/03/2021): Added automatically from request for surgery [id number] Type 2 diabetes mellitus with hyperlipidemia 03/2021 [...] months Assessment & Plan (12/06/2023 11:44 AM CHIP CRUSHER OPERATOR): The patient was counseled on a [...] months Assessment & Plan (10/02/2022 9:57 PM CHIP CRUSHER OPERATOR): The patient was counseled on a [...] 07/02/2020 Assessment & Plan (12/06/2023 7:16 AM CHIP CRUSHER OPERATOR): eliquis was stopped because of hx of GI bleeding Assessment & Plan (10/03/2022 10:17 AM CHIP CRUSHER OPERATOR): eliquis was stopped because of hx of GI bleeding Chronic GERD 07/02/2020 History of breast cancer 07/02/2020 Assessment & Plan (12/06/2023 7:16 AM CHIP CRUSHER OPERATOR): Still follows with Dr. Mohan Continue with letrozole Assessment & Plan (10/03/2022 10:19 AM CHIP CRUSHER OPERATOR): Still follows with Dr. Mohan Continue with letrozole History of uterine cancer 07/02/2020 Assessment & Plan (12/06/2023 7:16 AM CHIP CRUSHER OPERATOR): She follows with ob Assessment & Plan (10/03/2022 10:19 AM CHIP CRUSHER OPERATOR): She follows with ob High risk of cardiac event 07/01/2020 Iron deficiency anemia due to chronic blood loss 01/06/2020 Assessment & Plan (01/06/2020 5:46 AM CHIP CRUSHER OPERATOR): Likely GI source as patient has positive guaiac. Hemoglobin was as high as 11.1 in November. Patient has been seen by GI and 1 unit of PRBCs ordered. Awaiting repeat hemoglobin. Ferrlecit ordered by Dr. Felton already. Continue to monitor. Will hold anticoagulation for now. Chronic diastolic heart failure 12/03/2019 Assessment & Plan (12/06/2023 7:15 AM CHIP CRUSHER OPERATOR): stable Assessment & Plan (10/02/2022 9:56 PM CHIP CRUSHER OPERATOR): stable Malignant neoplasm of upper- inner quadrant of left breast in female, estrogen receptor positive 12/17/2018 Cancer Staging:Pathologic stage from 12/17/2018:Stage IA(pT1b, pN1mi(sn), cM0, G2, ER: Positive, NJ: Positive, HER2: Negative) - Signed by Neil Ag MD PhD on 12/17/2018 Assessment & Plan (01/06/2020 5:46 AM CHIP CRUSHER OPERATOR): Hold letrozole for now as it increases risk for thromboembolism. Assessment & Plan (12/02/2019 7:15 PM CHIP CRUSHER OPERATOR): S/p lumpectomy, home letrozole to be replaced with formulary anastrozole while inpatient per pharmacy. Followed by network contractor onc as an outpatient. Mixed hyperlipidemia 11/28/2017 Assessment & Plan (12/06/2023 12:19 PM CHIP CRUSHER OPERATOR): Stable / clinically quiescent. Will continue to monitor. Unable to tolerate statin medication at any dose Causes muscle aches Lipid panel ordered Assessment & Plan (04/03/2023 10:57 AM CDT): Stable / clinically quiescent. Will continue to monitor. Continue statin Assessment & Plan (10/02/2022 9:55 PM CHIP CRUSHER OPERATOR): Stable / clinically quiescent. Will continue [...] months Assessment & Plan (12/06/2023 11:32 AM CHIP CRUSHER OPERATOR): Bp in the office today BP [...] months Assessment & Plan (10/03/2022 10:15 AM CHIP CRUSHER OPERATOR): Bp in the office today BP Readings from Last 1 Encounters: 10/03/22 136/78 Continue current regimen of carvedilol and losartan Recommend DASH diet, heart-healthy lifestyle, exercise. Discussed the risks of hypertension. F/u in1 year Assessment & Plan (01/06/2020 5:42 AM CHIP CRUSHER OPERATOR): Currently normotensive. Continue carvedilol with hold parameters. Holding losartan and hydrochlorothiazide for now. Assessment & Plan (12/02/2019 7:14 PM CHIP CRUSHER OPERATOR): Continue home antihypertensives. Rheumatoid arthritis involvi ng multiple sites with positive rheumatoid factor 11/28/2017 Assessment & Plan (12/06/2023 7:16 AM CHIP CRUSHER OPERATOR): Stable Continue with rheumatology Continue with methotrexate Assessment & Plan (10/03/2022 10:21 AM CHIP CRUSHER OPERATOR): Stable Continue with rheumatology Continue with methotrexate Assessment & Plan (01/06/2020 5:42 AM CHIP CRUSHER OPERATOR): Patient is on methotrexate which she takes on Sunday. Assessment & Plan (12/02/2019 7:16 PM CHIP CRUSHER OPERATOR): Continue home methotrexate, administered weekly on Wednesdays. Hiatal hernia Current Treatment and Therapy Plans No current plan information found. Past Treatment and Therapy Plans Radiation Treatments * Course C1 L BRS NJ 2019 01/08/2019 - 04/09/2019 Treatment Period Energy Fraction Dose Fractions Total Dose Plans Planned LT BRST:1 01/08/2019 - 04/09/2019 266 16 / 4,256 Reference Points Delivered LT BRST 01/08/2019 - 04/09/2019 4,256 Resolved Problems Problem Noted Date Diagnosed Date Resolved Date Gastrointestinal hemorrhage associated with anorectal source 01/05/2020 07/02/2020 Overview (01/06/2020): Added automatically from request for surgery [id number] Bilateral pulmonary embolism 12/02/2019 07/02/2020 Assessment & Plan (12/02/2019 7:13 PM CHIP CRUSHER OPERATOR): Cause shortness of breath cough, seen on chest CT today. Therapeutic Lovenox started in ED, switched to Eliquis for outpatient therapy. TTE ordered for AM to ensure no right heart strain. Cause unclear at this point, chest CT showed a nodular density in the left breast and recommended follow-up mammogram, however patient had a normal mammogram 3 weeks ago from her network contractor onc physician at [facility] (results in Care Everywhere). Encounter for screening colonoscopy 09/29/2019 07/02/2020 Overview (09/29/2019): Added automatically from request for surgery [id number] Malignant neoplasm of uterus 12/17/2018 07/02/2020 Assessment & Plan (12/02/2019 7:15 PM CHIP CRUSHER OPERATOR): S/p hysterectomy. Viral URI with cough 10/30/2018 019 Assessment & Plan (10/30/2018 11:28 AM CHIP CRUSHER OPERATOR): Likely viral based on symptoms. Flonase prescribed, conservative management advised including use of a nasal rinses, humidifier or paper eyes are along with indication to f/u in office with any worsening symptoms or persistent symptoms. Pre-diabetes 11/28/2017 11/30/2020 Benign hypertension 04/11/2014 12/17/19 19 Overview (03/01/2017): BENIGN HYPERTENSION
--- OUTSIDE RECORDS SUMMARY | 2025-03-02 08:59 | XMS_ITS | Encounter Summary ---
Author Organization [facility] Address [address] [place] [address] Phone Care Team Providers Care Maintenance Department Manager Name Role Phone Francisco Long MD Primary Care Provider [phone] Neil Ag MD PhD Unavailable [facility] Unavailable Caron Mohan MD Unavailable Marleni Chiu MA Unavailable [phone] Pebbles Felton MD Unavailable [phone] Mounika Cruz RN Unavailable [phone] Yamileth Meade MA Unavailable [phone] Mariangel Quiñonez MD Primary Care Provide r Encounter Details Date Type Department Care Team (Late st Contact Info) Description 11/13/2017 Orders Only [facility] Provider, MD Annabelle [address] [place] [id number] Social History Tobacco Use Types Packs/Day Years Used Date Smoking Tobacco: Never Alcohol Use Standard Drinks/Week Comments No 0 (1 standard drink = 0.6 oz pur e alcohol) Comments Unknown Sex and Gender Information Value Date Recorded Sex Assigned at Not on file Legal Sex Female 12:21 PM CASING RUNNING MACHINE TENDER Gender Identity Not on file Sexual Orientation Not on file documented as of this encounter Plan of Treatment Not on file documented as of this encounter Procedures Procedure Name Priority Date/Time Associated Diagnosis Comments DISCHARGE LABORATORY CUMULATIVE REPORT 11/13/2017 12:00 AM CASING RUNNING MACHINE TENDER documented in this encounter Results * DISCHARGE LABORATORY CUMULATIVE REPORT (11/13/2017 12:00 AM CASING RUNNING MACHINE TENDER) Narrative 11/13/2017 12:00 AM CASING RUNNING MACHINE TENDER Ordered by an unspecified provider. us Historical Provider LAB BLOOD ORDERABLES Humaira l Result documented in this encounter Visit Diagnoses Not on filedocumented in this encounter Additional Health Concerns Infection Onset Date Last Indicated Resolved Time COVID: Suspected 12/28/2020 12/28/2020 12/29/2020 7:21 AM CASING RUNNING MACHINE TENDER Respiratory Infection (TITI), contact + droplet Comment:Automatically added due to negative COVID-19 result. 12/29/2020 12/29/2020 01/12/2021 3:0 6 AM CASING RUNNING MACHINE TENDER COVID: Suspected 12/07/2021 12/07/2021 12/07/2021 1:26 PM CASING RUNNING MACHINE TENDER COVID19 12/07/2021 12/07/2021 12/17/2021 3:05 AM CASING RUNNING MACHINE TENDER COVID: Recovered Comment:Added based on recent COVID infection. 12/17/2021 03/02/2022 04/16/2022 3:05 AM C DT COVID: Suspected 12/08/2022 12/08/2022 12/08/2022 11:08 AM CASING RUNNING MACHINE TENDER COVID19 12/08/2022 12/08/2022 12/18/2022 3:05 AM CASING RUNNING MACHINE TENDER COVID: Recovered Comment:Added based on recent COVID infection. 12/18/2022 02/11/2023 03/18/2023 3:06 AM C DT documented as of this encounter Care Teams Maintenance Department Manager Relationship Specialty Start Date End Date Francisco Long MD PCP - General 02/23/17 05/15/22 Mariangel Quiñonez MD [address] [place] [address] [address] [place] [address] PCP - General Family Medicine 05/16/22 Neil Ag MD PhD [address] [facility] [place] [address] Radiation Oncologist Radiation Oncology 12/17/18 [place] [address] [facility] [address] [place], [place] [id number] Referring Physician General Surgery 12/17/18 [place] [address] [facility] [address] [place], [place] [id number] Medical Oncologist/Outreach Nurse Medical Oncology 12/17/18 Marleni Chiu MA [address] [place] [address] [address] [place] [address] ACO Care Licensing Officer 12/04/19 12/04/19 Pebbles Felton MD [address] [place] [address] [address] [place] [address] Consulting Physician Gastroenterology 01/07/20 Mounika Cruz RN [address] [place] [address] [address] [place] [address] Divisional Merchandising Manager 11/17/20 11/28/20 Yamileth Meade MA [address] [place] [address] [address] [place] [address] ACO Care Licensing Officer 04/26/21 04/26/21 documented as of this encounter
--- NOTE | 2025-03-02 11:43 | ED.URI ---
HPI - URI/Sore Throat General Chief Complaint: Upper Respiratory Infection Stated Complaint: Cough Source: patient and RN notes reviewed Mode of arrival: ambulatory Limitations: no limitations History of Present Illness HPI Narrative: 79-year-old female presents Express Care complaining of upper respiratory symptoms x1 day. Patient reports having a runny nose and a sore throat. She denies any cough, congestion, fever, body aches, chills, chest pain, shortness of breath. She says her has the same symptoms. Related Data Home Medications ?Medication ?Instructions ?Recorded ?Confirmed ?Last Taken ?Type methotrexate sodium 2.5 mg tablet 15 mg PO WEEKLY 10/30/24 11/10/24 Unknown History Allergies Allergy/AdvReac Type Severity Reaction Status Date / Time codeine Allergy Unknown Unknown Verified 11/25/24 13:19 Review of Systems Review of Systems: CONSTITUTIONAL: Denies fever, chills, or sweats. EYES: Denies visual changes, redness, or discharge. ENT: Positive for rhinorrhea, sore throat. Negative for congestion or otalgia. CARDIOVASCULAR: Denies chest pain, palpitations, or edema. RESPIRATORY: Denies cough or dyspnea. GASTROINTESTINAL: Denies abdominal pain, nausea, vomiting, or diarrhea. GENITOURINARY: Denies dysuria or hematuria. SKIN: Denies rash or itching. MUSCULOSKELETAL: Denies back pain, joint pain, or myalgia. NEUROLOGIC: Denies headache, numbness, or weakness. PSYCHIATRIC: Denies anxiety or depression. All other systems reviewed are negative, except as documented in HPI. [facility] Past Medical History Medical History Rheumatoid arthritis Hypertension Breast cancer, left Bronchitis Surgical History Surgical History History of knee replacement, total bilateral H/O: hysterectomy Family History Family History Mother Family history non-contributory Social History Social History Smoking status: Never smoker Alcohol intake: current Alcohol use details: rare social Substance use: never Living arrangements: with family Gender identity (if verbalized by the patient): Female Comments At the time of my signature, I reviewed and agree with the nursing past medical, surgical, social, and family history. There is no relevant family history pertinent to the patient complaint. Exam Narrative: GENERAL: This is a well-nourished, well-developed adult, in no apparent distress. They are non ill-appearing, nontoxic appearing. HEAD: normocephalic, atraumatic. EYES: Sclera clear/white. Vision is grossly intact. EARS: External ears normal, auditory canals clear and without drainage, TMs normal without perforation. Hearing grossly intact. NOSE: External nose normal with no obvious nasal discharge, nares with redness, rhinorrhea his present. THROAT: Mucous membranes moist, posterior pharynx with mild erythema. Uvula midline. NECK: Neck supple, non-tender without lymphadenopathy, masses or thyromegaly. CARDIOVASCULAR: Regular rate and rhythm without murmurs, gallops, or rubs. RESPIRATORY: Clear to auscultation. Breath sounds equal bilaterally. No wheezes, rales, or rhonchi. SKIN: warm, Dry, intact with no suspicious lesions or rash, good texture and turgor. NEURO: awake, alert, and oriented to person, place and time. There were no obvious focal neurologic abnormalities. EXTREMITIES: No joint tenderness, effusion, or edema noted. Course Course Emergency Course: Patient is aware of diagnosis, understands and agrees to treatment plan. Anticipatory guidance given. Patient agrees to follow-up as directed and is aware of reasons to seek care at the emergency department. Portions of this record may have been created with voice recognition software Level of Care: Express Care Visit Vital Signs Vital signs: Vital Signs Temperature 98.2 F 03/02/25 08:55 Pulse Rate 86 03/02/25 08:55 Respiratory Rate 16 03/02/25 08:55 Blood Pressure 146/56 H 03/02/25 08:55 Pulse Oximetry 97 03/02/25 08:55 Oxygen Delivery Room Air 03/02/25 08:55 Temperature 98.2 F 03/02/25 08:55 Pulse Rate 86 03/02/25 08:55 Respiratory Rate 16 03/02/25 08:55 Blood Pressure 146/56 H 03/02/25 08:55 Pulse Oximetry 97 03/02/25 08:55 Oxygen Delivery Room Air 03/02/25 08:55 Reviewed MDM - URI/Sore Throat MDM Narrative Medical decision making narrative: Patient's symptoms her consistent with a viral illness, her symptoms started about 1 day ago. Discussed [id number] medication and duration of illness with patient. Discussed physical exam findings. Advised supportive measures and signs/symptoms to go to the ER. Pt is appropriate for outpt treatment and f/u. Differential Diagnosis Differential diagnosis: Likely upper respiratory infection, viral infection and pharyngitis Critical Care Time Critical Care Time Critical Care Time: No Discharge Plan Discharge Clinical Impression: Upper respiratory infection Qualifiers: URI type: unspecified viral URI Qualified Code(s): J06.9 - Acute upper respiratory infection, unspecified Patient Disposition: Home Condition: Stable Instructions: Upper Respiratory Infection (DC) Additional Instructions: Viral illness may last between 7-21 days; antibiotics do not cure viral illness and are NOT recommended at this time. Recommend antihistamine such as Benadryl at night time and Zyrtec or Shayy during the day Cough syrup may cause drowsiness; avoid driving or take it at night time. Also, recommend symptomatic treatment includes: rest, fluids, and increase humidity of the air at home. Recommend Acetaminophen as directed on the bottle to reduce fever, pain, headache. Please schedule a follow-up visit with your personal physician for further evaluation and treatment within 3-5days. If your symptoms persist, change or worsen significantly before you can contact your personal physician then please, without delay, go to the emergency department for further evaluation. Your blood pressure was elevated above 120/80 today at urgent care. This puts you above the threshold for follow-up. Please schedule a follow-up with your personal physician as soon as possible for further evaluation and treatment even blood pressures exceeding 120/80 may indicate pre-hypertension. Patient Language: Chinese Prescriptions: No Action amoxicillin-pot clavulanate 875-125 mg tablet 1 tablet PO Q12H Qty: 20 0RF doxycycline hyclate 100 mg tablet 100 mg PO BID Qty: 20 0RF methotrexate sodium 2.5 mg tablet 15 mg PO WEEKLY Follow-up/Referrals: PHYSICIAN NOT ON STAFF,NONSTAFF [Primary Care Provider] - Time of Disposition: 10:05
== END 2025-03-02 10:12 | disposition home or self-care (01) ==
DX: J06.9 Acute upper respiratory infection, unspecified (principal); I10 Essential (primary) hypertension; M06.9 Rheumatoid arthritis, unspecified; Z85.3 Personal history of malignant neoplasm of breast; Z96.653 Presence of artificial knee joint, bilateral
CPT/HCPCS: 99211; G0463